=== PATIENT | female | born 1975 | race Caucasian/White ===

== ENCOUNTER 2023-02-17 14:30 | Emergency (ER) | payer MEDICARE, SELFPAY ==
[2023-02-17 14:33] VITALS: BP 159/87; PULSE 87; RESP 18; TEMP 36.8; O2SAT 97; BMI 31.1
--- NOTE | 2023-02-17 14:39 | ED.NAVMDI1 ---
HPI - Nausea/Vomiting/Diarrhea General Chief complaint: Nausea/Vomiting/Diarrhea Stated complaint: VOMITING Time Seen by Provider: 02/17/23 14:38 Source: patient Mode of arrival: walk-in Limitations: no limitations History of Present Illness HPI Narrative: patient here with complaint of abdominal pain nausea with some vomiting and diarrhea over the last ten days. She saw her primary care doctor and he ordered a gallbladder ultrasound on her this Thursday. she has not had any blood in her stool. She had some dry heaves and retching this morning. She had an old history of peptic ulcer disease but that felt different because it was a burning sensation at this time the pain feels like a just a dull aching. She does not have any pain radiating into her back. She has no urinary symptomatology at all. She is not running a fever. No history of hepatitis or pancreatitis. She does not use marijuana products. She said the shot of Phenergan that was given to her by her primary care doctor yesterday was very helpful. But now the nausea is back. She has had several colonoscopies and is known to have polyps but she says her too small to be removed and had no other abnormalities on her colonoscopy in the past. Related Data Home Medications Medication Instructions Recorded Confirmed brexpiprazole 2 mg tablet (Rexulti) 2 mg PO DAILY 02/17/23 02/17/23 budesonide 1 mg/2 mL suspension 1 mg inhalation Q12H 02/17/23 02/17/23 for nebulization zqdtxqrpuy-lzritiakbvipc-xyrkkkok 1 tab PO Q6H PRN pain 02/17/23 02/17/23 50 mg-325 mg-40 mg tablet dapagliflozin 5 mg tablet (Farxiga) 5 mg PO DAILY 02/17/23 02/17/23 dexlansoprazole 60 mg 60 mg PO BID 02/17/23 02/17/23 capsule,biphase delayed release duloxetine 30 mg capsule,delayed 30 mg PO DAILY 02/17/23 02/17/23 release glycopyrrolate 1 mg tablet 1 mg PO Q8H PRN secretions 02/17/23 02/17/23 hydroxychloroquine 200 mg tablet 200 mg PO BID 02/17/23 02/17/23 ibuprofen 800 mg tablet 800 mg PO Q6H PRN fever or pain 02/17/23 02/17/23 ipratropium 0.5 mg-albuterol 3 mg 3 ml inhalation Q6H PRN shortness 02/17/23 02/17/23 (2.5 mg base)/3 mL nebulization of breath soln lamotrigine 200 mg tablet 200 mg PO Q8H 02/17/23 02/17/23 lisinopril 10 mg tablet 10 mg PO DAILY 02/17/23 02/17/23 lubiprostone 24 mcg capsule 24 mcg PO BID 02/17/23 02/17/23 metformin 500 mg tablet 1,000 mg PO BID 02/17/23 02/17/23 minocycline 100 mg capsule 100 mg PO DAILY 02/17/23 02/17/23 ondansetron HCl 4 mg tablet 4 mg PO Q8H PRN nausea and vomiting 02/17/23 02/17/23 pioglitazone 15 mg tablet 15 mg PO DAILY 02/17/23 02/17/23 simvastatin 20 mg tablet 20 mg PO DAILY 02/17/23 02/17/23 vilazodone 40 mg tablet (Viibryd) 40 mg PO DAILY 02/17/23 02/17/23 Allergies Allergy/AdvReac Type Severity Reaction Status Date / Time No Known Drug Allergies Allergy Verified 02/17/23 14:36 Exam Constitutional Vital Signs - 24 hr 02/17/23 14:33 02/17/23 16:14 Temperature 98.2 F Pulse Rate 84 Pulse Rate [Monitor] 87 Respiratory Rate 18 16 Blood Pressure 113/87 H Blood Pressure [Right Arm] 159/87 H Pulse Oximetry 97 98 Course Vital Signs Vital signs: Vital Signs Temperature 98.2 F 02/17/23 14:33 Pulse Rate 87 02/17/23 14:33 Respiratory Rate 18 02/17/23 14:33 Blood Pressure 159/87 H 02/17/23 14:33 Pulse Oximetry 97 02/17/23 14:33 Temperature 98.2 F 02/17/23 14:33 Pulse Rate 84 02/17/23 16:59 Respiratory Rate 20 02/17/23 16:59 Blood Pressure 118/61 02/17/23 16:59 Pulse Oximetry 97 02/17/23 16:59 Oxygen Delivery Method Room Air 02/17/23 16:59 MDM - Nausea/Vomiting/Diarrhea MDM Narrative Medical decision making narrative: This document has been composed with a new electronic medical record and [employer] voice recognition system. This document may not fully inaccurately reflect the entirety of the patient encounter. patient presents with nearly 10 days of bloating upper abdominal discomfort and nausea. Her workup here did not show any acute findings with a normal white blood cell count amylase and CT the abdomen is benign. She is scheduled to have an ultrasound which may give further understanding of her gallbladder and biliary tree. I would like her to be on clear fluid diet and avoid all fatty foods until that time. She states the Phenergan made her feel better yesterday so we will give her some today. The CT scan did not show any other acute abdominal pathology. Lab Data Labs: Lab Results 02/17/23 Range/Units 14:40 WBC 8.6 (4.0-11.0) 10^3/uL RBC 4.16 L (4.20-5.40) 10^6/uL Hgb 11.0 L (12.0-16.0) g/dL Hct 34.8 L (36.0-48.0) % MCV 83.7 (81.0-99.0) fL MCH 26.4 L (26.7-34.0) pg MCHC 31.6 (29.9-35.2) g/dL RDW 15.7 H (11.0-15.0) % Plt Count 417 (150-450) 10^3/uL MPV 10.2 (9.5-13.5) fL Neut % (Auto) 62.5 (43.0-75.0) % Lymph % (Auto) 24.4 (20.5-60.0) % [place] % (Auto) 11.5 (1.7-12.0) % Eos % (Auto) 0.6 L (0.9-7.0) % Baso % (Auto) 0.7 (0.2-2.0) % Neut # (Auto) 5.4 (1.4-6.5) 10^3/uL Lymph # (Auto) 2.1 (1.2-3.8) 10^3/uL [place] # (Auto) 1.0 H (0.3-0.8) 10^3/uL Eos # (Auto) 0.1 (0.0-0.7) 10^3/uL Baso # (Auto) 0.1 (0.0-0.1) 10^3/uL Abs Immat Gran (auto) 0.03 (0.00-0.03) 10^3/uL Imm/Tot Granulo (auto) 0.3 (0.0-0.5) % Sodium 139 (136-145) mmol/L Potassium 3.8 (3.5-5.1) mmol/L Chloride 104 (98-107) mmol/L Carbon Dioxide 22.6 (21.0-32.0) mmol/L Anion Gap 16.2 BUN 9.0 (7.0-18.0) mg/dL Creatinine 0.95 (0.55-1.02) mg/dL Est GFR ( Amer) >60 (>=60) Est GFR (Non-Af Amer) >60 (>=60) BUN/Creatinine Ratio 9.5 Glucose 97 (74-106) mg/dL Lactate 1.5 (0.4-2.0) mmol/L Calcium 8.7 (8.5-10.1) mg/dL Total Bilirubin 0.2 (0.2-1.0) mg/dL AST 18 (15-37) U/L ALT 27 (14-59) U/L Alkaline Phosphatase 58 (46-116) U/L Total Protein 6.9 (6.4-8.2) g/dL Albumin 3.6 (3.4-5.0) g/dL Globulin 3.3 g/dL Albumin/Globulin Ratio 1.1 Lipase 118.0 (73.0-393.0) U/L Discharge Plan Discharge Chief Complaint: Nausea/Vomiting/Diarrhea Clinical Impression: Gastroenteritis Patient Disposition: Home, Self-Care Time of Disposition Decision: 16:38 Mode of Transportation: Private Vehicle Prescriptions / Home Meds: No Action Rexulti 2 mg tablet 2 mg PO DAILY budesonide 1 mg/2 mL suspension for nebulization 1 mg inhalation Q12H kttfxtlgco-eddchsvkjzyrt-nuwv 50-325-40 mg tablet 1 tab PO Q6H PRN (Reason: pain) Farxiga 5 mg tablet 5 mg PO DAILY dexlansoprazole 60 mg capsule,biphase delayed releas 60 mg PO BID duloxetine 30 mg capsule,delayed release(DR/EC) 30 mg PO DAILY glycopyrrolate 1 mg tablet 1 mg PO Q8H PRN (Reason: secretions) hydroxychloroquine 200 mg tablet 200 mg PO BID ibuprofen 800 mg tablet 800 mg PO Q6H PRN (Reason: fever or pain) ipratropium-albuterol 0.5 mg-3 mg(2.5 mg base)/3 mL solution for nebulization 3 ml INHALATION Q6H PRN (Reason: shortness of breath) lamotrigine 200 mg tablet 200 mg PO Q8H lisinopril 10 mg tablet 10 mg PO DAILY lubiprostone 24 mcg capsule 24 mcg PO BID metformin 500 mg tablet 1,000 mg PO BID minocycline 100 mg capsule 100 mg PO DAILY ondansetron HCl 4 mg tablet 4 mg PO Q8H PRN (Reason: nausea and vomiting) pioglitazone 15 mg tablet 15 mg PO DAILY simvastatin 20 mg tablet 20 mg PO DAILY vilazodone [Viibryd] 40 mg tablet 40 mg PO DAILY Instructions: Acute Nausea and Vomiting (DC) Stand Alone Forms: Portal Instructions Referrals: Jesus Camacho MD [Primary Care Provider] - 1 week Discharge Date/Time: 02/17/23 17:00
--- NOTE | 2023-02-17 14:48 | CT_ITS ---
The [address] [address] Patient Name: DEON PICHARDO MRN: [id number] date: 1975 Sex: F Assigned Patient Location: ER Current Patient Location: ER Accession/Order Number: [id number] Exam Date: 02/17/2023 15:50 Report Date: 02/17/2023 16:23 At the request of: KEZIA BRUMFIELD Procedure: CT abdomen pelvis w con EXAM: CT abdomen pelvis w con HISTORY: pain COMPARISON: None. TECHNIQUE: Axial CT imaging was performed through the abdomen and pelvis with intravenous contrast. Multiplanar reformats were performed. Dose reduction techniques were achieved by using automated exposure control and/or adjustment of mA and/or kV according to patient size and/or use of iterative reconstruction technique. FINDINGS: Lung bases: Lung bases are clear. No pleural effusion. GI upper: Unremarkable. Liver: Normal size and contour. Gallbladder: No significant abnormality. No cholelithiasis. Biliary system: No intra or extrahepatic biliary ductal dilatation. Spleen: Normal size. Pancreas: Unremarkable. Adrenal glands: Normal adrenal glands. Kidneys/ureters: Normal contours. No hydronephrosis. No nephrolithiasis or ureterolithiasis. Vessels: No aneurysm. Lymph Nodes: No lymphadenopathy. Small bowel: No wall thickening or dilatation. Colon: No wall thickening or dilatation. Evidence of constipation. Appendix: Appendectomy. Peritoneal cavity: No free fluid or pneumoperitoneum. Lower : The uterus and urinary bladder are unremarkable. There is a 2 cm prominent follicle or corpus luteal cyst in the right ovary. Bones: No acute bony abnormality. Disc desiccation at L5-S1 level. Soft tissues: No acute finding. Additional findings: None. IMPRESSION: Unremarkable CT of the abdomen and pelvis. No acute abnormality. Electronically authenticated by: AMERICA MORGAN Date: 02/17/2023 16:23
[2023-02-17] MEDS: 0.9 % SODIUM CHLORIDE 1,000 ML 100 ML IV (14:56)
[2023-02-17 14:58] LABS: Basophils Absolute Auto 0.1 10^3/uL (0.0-0.1); Basophils Percent Auto 0.7 % (0.2-2.0); Eosinophils Absolute Auto 0.1 10^3/uL (0.0-0.7); Eosinophils Percent Auto 0.6 % (0.9-7.0); Hematocrit 34.8 % (36.0-48.0); Immature Granulocytes Abs Auto 0.03 10^3/uL (0.00-0.03); Immature Granulocytes Pct Auto 0.3 % (0.0-0.5); Lymphocytes Absolute Auto 2.1 10^3/uL (1.2-3.8); Lymphocytes Percent Auto 24.4 % (20.5-60.0); Mean Corpuscular HGB Conc 31.6 g/dL (29.9-35.2); Mean Corpuscular Hemoglobin 26.4 pg (26.7-34.0); Mean Corpuscular Volume 83.7 fL (81.0-99.0); Mean Platelet Volume 10.2 fL (9.5-13.5); Monocytes Percent Auto 11.5 % (1.7-12.0); Neutrophils Absolute Auto 5.4 10^3/uL (1.4-6.5); Neutrophils Percent Auto 62.5 % (43.0-75.0); Platelet Count 417 10^3/uL (150-450); Red Blood Count 4.16 10^6/uL (4.20-5.40); Red Cell Distribution Width 15.7 % (11.0-15.0); White Blood Count 8.6 10^3/uL (4.0-11.0)
[2023-02-17 15:13] LABS: Alanine Aminotransferase 27 U/L (14-59); Albumin Globulin Ratio 1.1; Albumin Level 3.6 g/dL (3.4-5.0); Alkaline Phosphatase 58 U/L (46-116); Anion Gap 16.2; Aspartate Amino Transferase 18 U/L (15-37); BUN Creatinine Ratio 9.5; Bilirubin Total 0.2 mg/dL (0.2-1.0); Calcium 8.7 mg/dL (8.5-10.1); Carbon Dioxide 22.6 mmol/L (21.0-32.0); Chloride 104 mmol/L (98-107); Estimated GFR (African America >60 (>=60); Estimated GFR (Non-African Ame >60 (>=60); Globulin 3.3 g/dL; Glucose 97 mg/dL (74-106); Potassium 3.8 mmol/L (3.5-5.1); Sodium 139 mmol/L (136-145); Total Protein 6.9 g/dL (6.4-8.2)
[2023-02-17 15:15] LABS: Lactate/Lactic Acid 1.5 mmol/L (0.4-2.0)
[2023-02-17] MEDS: ONDANSETRON PF 4 MG/2 ML VIAL IV (16:12)
[2023-02-17 16:14] VITALS: BP 113/87; PULSE 84; RESP 16; O2SAT 98
[2023-02-17] MEDS: PROMETHAZINE HCL 25 MG/ML VIAL IM (16:53)
[2023-02-17 16:59] VITALS: BP 118/61; PULSE 84; RESP 20; O2SAT 97
== END 2023-02-17 17:00 | disposition home or self-care (01) ==
PROVIDERS: Emergency Provider Emergency Medicine Emergency Medical Services; PCP Family Medicine
DX: K52.9 Noninfective gastroenteritis and colitis, unspecified (principal); Z87.11 Personal history of peptic ulcer disease; Z79.899 Other long term (current) drug therapy; Z79.84 Long term (current) use of oral hypoglycemic drugs
CPT/HCPCS: 36415; 74177; 80053; 83605; 83690; 85025; 96372; 96374; 99284; Q9967

== ENCOUNTER 2023-02-21 07:56 | Outpatient (OUT) | payer MEDICARE, SELFPAY ==
--- NOTE | 2023-02-21 07:59 | US_ITS ---
The [address] [address] Patient Name: DOEN PICHARDO MRN: [id number] date: 1975 Sex: F Assigned Patient Location: US Current Patient Location: US Accession/Order Number: [id number] Exam Date: 02/21/2023 08:00 Report Date: 02/21/2023 08:35 At the request of: SAMMIE GONZALEZ Procedure: US right upper quadrant EXAM: US right upper quadrant HISTORY: R10.11 RIGHT UPPER QUADRANT PAIN COMPARISON: None. TECHNIQUE: Grayscale, color and Doppler ultrasound FINDINGS: The liver is normal in size, contour and echotexture with no focal mass. Hepatopedal flow in the main portal vein with velocity of 41 cm/s. The visualized pancreas is normal, the tail was not visualized The gallbladder is normal. The wall measures 2.4 mm. Negative sonographic Topete sign. The common bile measures 5.3 mm, normal. The right kidney is normal in appearance measuring 11.1 x 4.2 x 6.2 cm. No free fluid IMPRESSION: No acute abnormality Electronically authenticated by: LIAT GUEVARA Date: 02/21/2023 08:35
== END 2023-02-21 07:57 ==
LOC: US 07:56
PROVIDERS: PCP Family Medicine; Visit Provider Family Medicine
DX: R10.11 Right upper quadrant pain (principal)
CPT/HCPCS: 76705

== ENCOUNTER 2023-03-06 08:08 | Outpatient (OUT) | payer MEDICARE, SELFPAY ==
--- NOTE | 2023-03-06 08:15 | NM_ITS ---
The [address] [address] Patient Name: DEON PICHARDO MRN: [id number] date: 1975 Sex: F Assigned Patient Location: [place] Current Patient Location: [place] Accession/Order Number: [id number] Exam Date: 03/06/2023 08:15 Report Date: 03/06/2023 12:35 At the request of: SAMMIE GONZALEZ Procedure: NM hepatobiliary w pharm EXAMINATION: SC hepatobiliary w pharm HISTORY: Right upper quadrant pain COMPARISON: No relevant comparison available. TECHNIQUE: Radionuclide hepatobiliary imaging was performed after intravenous injection of 15 mCi mebrofenin IV with sequential acquisitions every 1 minute for one hour. Hepatobiliary imaging with gallbladder ejection fraction analysis was then performed with sequential imaging every 1 minute for 60 minutes following the patient drinking 8 ounces of ensure plus. FINDINGS: LIVER: Normal, prompt and uniform radiotracer uptake and clearing. BILIARY DUCTS: Normal radioisotopic biliary excretion. GALLBLADDER: Normal with no evidence of cystic duct obstruction. INTESTINE: Normal with no evidence of common biliary ductal obstruction. EJECTION FRACTION: 84 % within 60 minutes. (Normal EF > 38%). OTHER: Negative. IMPRESSION: Normal hepatobiliary scan and gallbladder ejection fraction Electronically authenticated by: LIAT GUEVARA Date: 03/06/2023 12:35
== END 2023-03-06 08:09 | disposition home or self-care (01) ==
PROVIDERS: PCP Family Medicine; Visit Provider Family Medicine
DX: R10.11 Right upper quadrant pain (principal); R11.0 Nausea; R11.10 Vomiting, unspecified
CPT/HCPCS: 78227; A9537

== ENCOUNTER 2023-04-27 13:08 | Outpatient (RCR) | payer MEDICARE, SELFPAY ==
[2023-04-27 13:10] VITALS: BP 119/77; PULSE 86; RESP 16; TEMP 36.7
[2023-05-04 13:15] VITALS: BP 132/78; PULSE 86; RESP 16; TEMP 36.9; O2SAT 97
== END 2023-05-14 23:59 | disposition home or self-care (01) ==
LOC: INF 13:08
PROVIDERS: PCP Family Medicine; Visit Provider Family Medicine
DX: D50.9 Iron deficiency anemia, unspecified (principal)
CPT/HCPCS: 96365; 96366; J1439

== ENCOUNTER 2024-02-19 11:22 | Outpatient (OUT) | payer MEDICARE, SELFPAY ==
--- NOTE | 2024-02-19 | XR_ITS ---
The [address] [address] Patient Name: DEON PICHARDO MRN: [id number] date: 1975 Sex: F Assigned Patient Location: Current Patient Location: Accession/Order Number: [id number] Exam Date: 02/19/2024 11:30 Report Date: 02/22/2024 06:07 At the request of: DIEGO RASHID Procedure: XR lumbar spine min 4V EXAMINATION: XR lumbar spine min 4V HISTORY: LUMBAR PAIN COMPARISON: MRI lumbar spine 02/01/2024 FINDINGS: BONES: Slight right convex curvature lumbar spine. No fracture, spondylolisthesis, bone lesion. No change in alignment during flexion and extension. Suspect mild degenerative facet arthropathy L3-L4 through L5-S1. DISC SPACES: Moderate narrowing L5-S1. PARASPINOUS: Negative. No paraspinous abnormality is seen. OTHER: Negative. XR/XR lumbar spine min 4V IMPRESSION: 1. L5-S1 moderate degenerative disc disease. Electronically authenticated by: SUNG YUN Date: 02/22/2024 06:07
--- NOTE | 2024-02-19 | XR_ITS ---
[address] [address] Patient Name: DEON PICHARDO MRN: [id number] date: 1975 Sex: F Assigned Patient Location: Current Patient Location: Accession/Order Number: [id number] Exam Date: 02/19/2024 11:30 Report Date: 02/22/2024 06:06 At the request of: DIEGO RASHID Procedure: XR cervical spine w flex/ext EXAMINATION: XR cervical spine w flex/ext HISTORY: CERVICAL SPINE PAIN COMPARISON: MRI cervical spine 02/01/2024 FINDINGS: BONES: Slight reversal of normal lordotic curvature. No fracture or spondylolisthesis. No significant facet arthropathy. DISC SPACES: Moderate narrowing C5-C6, and suspected at C6-C7 which is partially obscured by shoulder structures. PARASPINOUS: Negative. No paraspinous abnormality is seen. OTHER: Negative. XR/XR cervical spine w flex/ext IMPRESSION: 1. Moderate degenerative disc disease of lower cervical spine. 2. Reversal of normal lordotic curvature; positioning versus muscle spasm. Electronically authenticated by: SUNG YUN Date: 02/22/2024 06:06
== END 2024-02-19 11:23 | disposition home or self-care (01) ==
LOC: EC 11:22
PROVIDERS: PCP Family Medicine; Visit Provider Orthopaedic Surgery Orthopaedic Surgery of the Spine
DX: M54.50 Low back pain, unspecified (principal); M54.2 Cervicalgia; M51.36 Other intervertebral disc degeneration, lumbar region
CPT/HCPCS: 72052; 72110

== ENCOUNTER 2024-03-07 13:36 | Outpatient (OUT) | payer MEDICARE, MEDICAID, SELFPAY ==
--- NOTE | 2024-03-07 14:52 | P.CN_ITS ---
Consult Note: HPI Data of Consult Patient: new to practice Consult date: 03/07/24 Requesting Physician: Ridge Hollingsworth MD Primary Care Provider: Jesus Camacho MD Consult Narrative Reason for consult: low back, bilateral lower extremity, neck, bilateral upper extremity pain Narrative: 48yof who presents for evaluation. longstanding neck and bilateral arm, low back and lower extremity pain. recently evaluated by back surgeon, who recommended injection therapy prior to surgical intervention. imaging reviewed, which is significant for moderate to severe stenosis at l5-s1, as well as moderate to severe foraminal narrowing at multiple cervical levels, worst at c6-7. she has engaged in a series of provider directed home exercises >6 weeks without lasting benefit. uses ibuprofen as needed. denies adverse med side effects. cc:: CC: Ridge Hollingsworth MD Review of Systems ROS Status of ROS 10 or more systems reviewed and unremark able except as noted in history and below Meds Home Medications and Allergies Home Medications ?Medication ?Instructions ?Recorded ?Confirmed ?Type brexpiprazole 2 mg tablet (Rexulti) 2 mg PO DAILY 02/17/23 02/17/23 History budesonide 1 mg/2 mL suspension 1 mg inhalation Q12H 02/17/23 02/17/23 History for nebulization bvmdjzqevj-wvumkutfqgsij-biplfuzk 1 tab PO Q6H PRN pain 02/17/23 02/17/23 History 50 mg-325 mg-40 mg tablet dapagliflozin propanediol 5 mg 5 mg PO DAILY 02/17/23 02/17/23 History tablet (Farxiga) dexlansoprazole 60 mg 60 mg PO BID 02/17/23 02/17/23 History capsule,biphase delayed release duloxetine 30 mg capsule,delayed 30 mg PO DAILY 02/17/23 02/17/23 History release glycopyrrolate 1 mg tablet 1 mg PO Q8H PRN secretions 02/17/23 02/17/23 History hydroxychloroquine 200 mg tablet 200 mg PO BID 02/17/23 02/17/23 History ibuprofen 800 mg tablet 800 mg PO Q6H PRN fever or pain 02/17/23 02/17/23 History ipratropium 0.5 mg-albuterol 3 mg 3 ml inhalation Q6H PRN shortness 02/17/23 02/17/23 History (2.5 mg base)/3 mL nebulization of breath soln lamotrigine 200 mg tablet 200 mg PO Q8H 02/17/23 02/17/23 History lisinopril 10 mg tablet 10 mg PO DAILY 02/17/23 02/17/23 History lubiprostone 24 mcg capsule 24 mcg PO BID 02/17/23 02/17/23 History metformin 500 mg tablet 1,000 mg PO BID 02/17/23 02/17/23 History minocycline 100 mg capsule 100 mg PO DAILY 02/17/23 02/17/23 History ondansetron HCl 4 mg tablet 4 mg PO Q8H PRN nausea and vomiting 02/17/23 02/17/23 History pioglitazone 15 mg tablet 15 mg PO DAILY 02/17/23 02/17/23 History simvastatin 20 mg tablet 20 mg PO DAILY 02/17/23 02/17/23 History vilazodone 40 mg tablet (Viibryd) 40 mg PO DAILY 02/17/23 02/17/23 History Allergies Allergy/AdvReac Type Severity Reaction Status Date / Time No Known Drug Allergies Allergy Verified 02/17/23 14:36 Exam Narrative Exam Narrative: Psych-alert and oriented x 3.? Attentive and appropriate, constitutionally normal, displays normal mood and affect per situation.? There are no obvious deficits in memory, reasoning, or intellect.? Skin-no obvious rashes, bruising, or erythema noted to the patient's area of pain.? Extremities-upper extremities are warm with minimal edema and palpable pulses. Cervical- tenderness to palpation noted in the cervical spine and paraspinal musculature.? Pain is elicited with flexion, extension, and lateral rotation of the cervical spine.? Range of motion is diminished due to pain. Facet loading maneuvers are negative.? Strength-unremarkable and within normal limits with the exception to the bilateral biceps. Sensory-no notable sensory deficits in the bilateral upper extremities to touch or pinprick with the exception to decreased sensation to the bilateral C5, 6, 7 dermatomal distribution. Lumbar-tenderness to palpation noted in the lumbar spine and paraspinal musculature. Pain is elicited with flexion, extension, and lateral rotation of the lumbar spine. Range of motion is diminished with these motions. Facet loading maneuvers are positive. Strength-noted to be unremarkable with the exception of decreased strength rated at 4 out of 5 in bilateral quadriceps femoris. Sensory-no notable sensory deficits in the bilateral lower extremities to touch or pinprick in all dermatomal distributions with the exception to decreased sensation to the bilateral L4, 5 dermatomal distribution Coordination remains intact.? Gait remains non-antalgic. Assessment and Plan Assessment and Plan (1) Cervical stenosis of spinal canal: (2) Lumbar stenosis with neurogenic claudication: (3) Lumbar spondylosis: Plan 48yof who presents for evaluation. failed conservative measures,as noted. imaging reviewed, as noted. given symptoms and imaging, prudent to attempt bilateral l5-s1 tfesi under fluoroscopic guidance. may also benefit from bilateral c6-7 tfesi under fluoroscopic guidance. she is in agreement. meds reviewed, no changes. follow up after procedure.
== END 2024-03-07 13:37 | disposition home or self-care (01) ==
LOC: PM 13:37
PROVIDERS: PCP Family Medicine; Visit Provider Anesthesiology
DX: M47.816 Spondylosis without myelopathy or radiculopathy, lumbar region (principal); M48.062 Spinal stenosis, lumbar region with neurogenic claudication; M48.02 Spinal stenosis, cervical region
CPT/HCPCS: G0463

== ENCOUNTER 2024-04-25 09:51 | Day surgery (SDC) | payer MEDICARE, MEDICAID, SELFPAY ==
[2024-04-25 10:15] VITALS: BP 123/70; PULSE 90; TEMP 36.8; O2SAT 100
[2024-04-25 10:24] LABS: Glucometer 89 mg/dL (74-106)
[2024-04-25] MEDS: BUPIVACAINE HCL 0.25% PF 25 MG/10 ML VIAL INJ (10:42)
[2024-04-25] MEDS: IOHEXOL 240 MG/ML - 10 ML VIAL INJ (10:43)
[2024-04-25] MEDS: LIDOCAINE HCL 2% 400 MG/20 ML MDV 5 ML INJ (10:43)
[2024-04-25] MEDS: DEXAMETHASONE SOD PHOS 10 MG/ML VIAL INJ (10:43)
[2024-04-25 10:44] VITALS: BP 117/66; BP 121/59; PULSE 87; PULSE 90; O2SAT 96; O2SAT 99
--- NOTE | 2024-04-25 10:45 | W.PM.PROCNOT ---
Date of procedure: 04/25/24 Pre-op diagnosis: Pain due to cervical radiculopathy Post-op diagnosis: same as pre-op Procedure: Procedure: Bilateral C6-7 transforaminal epidural steroid injection Medications: Bupivacaine 0.25% 1cc, lidocaine 2% 1cc, dexamethasone 10mg The patient was seen and examined in the preoperative holding area.? Informed consent was obtained and placed on the chart.? Patient was brought to the medical procedure unit and placed in the prone position where a timeout was completed verifying the correct patient, procedure site, position, and planned special equipment using sterile aseptic technique.? Under direct fluoroscopic visualization a 25-gauge Quincke tipped spinal needle was advanced at level left C6-7 to the designated neural foramen where contrast dye was injected to show adequate spread.? There was no evidence of vascular or adverse uptake.? Epidural spread was appreciated.? The above-mentioned injectate was then placed in a 1.5 mL aliquot preceded by negative aspiration.? The needle was removed. The same procedure, at the same level, was completed on the opposite side. ? Patient was taken to the postprocedural recovery area and monitored for an appropriate length of time before found suitable for discharge in the accompaniment of a responsible adult. Anesthesia: Local Surgeon: Ridge Hollingsworth Pathology: none sent Condition: stable Disposition: no change
== END 2024-04-25 10:49 | disposition home or self-care (01) ==
LOC: SURGOUT 09:53
PROVIDERS: PCP Family Medicine; Visit Provider Anesthesiology
DX: M54.12 Radiculopathy, cervical region (principal); Z79.84 Long term (current) use of oral hypoglycemic drugs
CPT/HCPCS: 36415; 64479; 82948; J0665; J1100; Q9966

== ENCOUNTER 2024-05-09 07:50 | Day surgery (SDC) | payer MEDICARE, MEDICAID, SELFPAY ==
[2024-05-09 08:29] LABS: Glucometer 106 mg/dL (74-106)
[2024-05-09 08:36] VITALS: BP 120/71; PULSE 96; TEMP 36.5; O2SAT 99
[2024-05-09] MEDS: IOHEXOL 240 MG/ML - 10 ML VIAL INJ (08:56)
[2024-05-09] MEDS: 0.9 % SODIUM CHLORIDE 10 ML SYRINGE - SALINE FLUSH INJ (08:56)
[2024-05-09] MEDS: BUPIVACAINE HCL 0.25% PF 25 MG/10 ML VIAL INJ (08:56)
[2024-05-09] MEDS: TRIAMCINOLONE ACETONIDE 40 MG/ML VIAL 80 MG INJ (08:57)
[2024-05-09] MEDS: LIDOCAINE HCL 2% 400 MG/20 ML MDV 5 ML INJ (08:57)
[2024-05-09 08:58] VITALS: BP 106/87; BP 116/87; PULSE 70; PULSE 95; O2SAT 93; O2SAT 98
--- NOTE | 2024-05-09 08:59 | W.PM.PROCNOT ---
Date of procedure: 05/09/24 Pre-op diagnosis: Pain due to lumbar stenosis with neurogenic claudication Post-op diagnosis: same as pre-op Procedure: Procedure: Bilateral L5-S1 transforaminal epidural steroid injection Medications: Bupivacaine 0.25% 2cc, lidocaine 2% 1cc, kenalog 80mg The patient was seen and examined in the preoperative holding area.? Informed consent was obtained and placed on the chart.? Patient was brought to the medical procedure unit and placed in the prone position where a timeout was completed verifying the correct patient, procedure site, position, and planned special equipment using sterile aseptic technique.? Under direct fluoroscopic visualization a 25-gauge Quincke tipped spinal needle was advanced at level left L5-S1 to the designated neural foramen where contrast dye was injected to show adequate spread.? There was no evidence of vascular or adverse uptake.? Epidural spread was appreciated.? The above-mentioned injectate was then placed in a 1.5 mL aliquot preceded by negative aspiration.? The needle was removed. The same procedure, at the same level, was completed on the opposite side. ? Patient was taken to the postprocedural recovery area and monitored for an appropriate length of time before found suitable for discharge in the accompaniment of a responsible adult. Anesthesia: Local Surgeon: Ridge Hollingsworth Pathology: none sent Condition: stable Disposition: no change
== END 2024-05-09 09:04 | disposition home or self-care (01) ==
PROVIDERS: PCP Family Medicine; Visit Provider Anesthesiology
DX: M48.062 Spinal stenosis, lumbar region with neurogenic claudication (principal); Z79.84 Long term (current) use of oral hypoglycemic drugs
CPT/HCPCS: 36415; 64483; 82948; J0665; J3301; Q9966

== ENCOUNTER 2024-05-26 13:39 | Outpatient (OUT) | payer MEDICARE, MEDICAID, SELFPAY ==
--- NOTE | 2024-05-26 14:06 | P.CN_ITS ---
Consult Note: HPI Data of Consult Patient: known to practice within the last 3 years Consult date: 03/07/24 Requesting Physician: Chantal Ocampo NP Primary Care Provider: Jesus Camacho MD Consult Narrative Reason for consult: low back, bilateral lower extremity, neck, bilateral upper extremity pain Narrative: 48yof who presents for evaluation. longstanding neck and bilateral arm, low back and lower extremity pain. recently evaluated by back surgeon, who recommended injection therapy prior to surgical intervention. imaging reviewed, which is significant for moderate to severe stenosis at l5-s1, as well as moderate to severe foraminal narrowing at multiple cervical levels, worst at c6-7. she has engaged in a series of provider directed home exercises >6 weeks without lasting benefit. uses ibuprofen as needed. denies adverse med side effects. recently underwent bilateral C6-7 TFESI and bilateral L5-S1 TFESI with >80% improvement from injections. Patient rating pain 0/10 currently, tight. 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 - 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], unspecified hand (ICD-10) History of smoking ?Z87.891 - Personal history of nicotine dependence (ICD-10) Carpal tunnel syndrome ?G56.00 - Carpal tunnel syndrome, unspecified upper limb (ICD-10) Obesity ?E66.9 - Obesity, unspecified (ICD-10) Anemia ?D64.9 - Anemia, unspecified (ICD-10) Anxiety ?F41.9 - Anxiety disorder, unspecified (ICD-10) Acid reflux ?K21.9 - Gastro-esophageal reflux disease without esophagitis (ICD-10) Diabetes 1.5, managed as type 2 ?E13.9 - Other specified diabetes mellitus without complications (ICD-10) Hypertension ?I10 - Essential (primary) hypertension (ICD-10) High cholesterol ?E78.00 - Pure hypercholesterolemia, unspecified (ICD-10) Surgical History H/O resection of rib ?Z98.890 - Other specified postprocedural states (ICD-10) History of surgery on arm ?Z98.890 - Other specified postprocedural states (ICD-10) H/O breast biopsy ?Z98.890 - Other specified postprocedural states (ICD-10) History of carpal tunnel surgery ?Z98.890 - Other specified postprocedural states (ICD-10) History of appendectomy ?Z90.49 - Acquired absence of other specified parts of digestive tract (ICD- 10) Meds Home Medications and Allergies Home Medications ?Medication ?Instructions ?Recorded ?Confirmed ?Type brexpiprazole 2 mg tablet (Rexulti) 2 mg PO DAILY 02/17/23 05/09/24 History budesonide 1 mg/2 mL suspension 1 mg inhalation Q12H 02/17/23 05/09/24 History for nebulization dapagliflozin propanediol 5 mg 5 mg PO DAILY 02/17/23 05/09/24 History tablet (Farxiga) dexlansoprazole 60 mg 60 mg PO BID 02/17/23 05/09/24 History capsule,biphase delayed release duloxetine 30 mg capsule,delayed 30 mg PO DAILY 02/17/23 05/09/24 History release glycopyrrolate 1 mg tablet 1 mg PO Q8H PRN secretions 02/17/23 05/09/24 History hydroxychloroquine 200 mg tablet 200 mg PO BID 02/17/23 05/09/24 History ibuprofen 800 mg tablet 800 mg PO Q6H PRN fever or pain 02/17/23 05/09/24 History ipratropium 0.5 mg-albuterol 3 mg 3 ml inhalation Q6H PRN shortness 02/17/23 05/09/24 History (2.5 mg base)/3 mL nebulization of breath soln lamotrigine 200 mg tablet 200 mg PO Q8H 02/17/23 05/09/24 History lisinopril 10 mg tablet 10 mg PO DAILY 02/17/23 05/09/24 History lubiprostone 24 mcg capsule 24 mcg PO BID 02/17/23 05/09/24 History metformin 500 mg tablet 1,000 mg PO BID 02/17/23 05/09/24 History ondansetron HCl 4 mg tablet 4 mg PO Q8H PRN nausea and vomiting 02/17/23 05/09/24 History pioglitazone 15 mg tablet 15 mg PO DAILY 02/17/23 05/09/24 History simvastatin 20 mg tablet 20 mg PO DAILY 02/17/23 05/09/24 History vilazodone 40 mg tablet (Viibryd) 40 mg PO DAILY 02/17/23 05/09/24 History budesonide 1 mg/2 mL suspension 1 mg inhalation DAILY 03/08/24 05/09/24 History for nebulization (Pulmicort) dexlansoprazole 60 mg 60 mg PO DAILY 03/08/24 05/09/24 History capsule,biphase delayed release (Dexilant) etodolac 400 mg tablet (Lodine) 400 mg PO Q12H PRN pain 03/08/24 05/09/24 History nortriptyline 25 mg capsule 25 mg PO DAILY 03/08/24 05/09/24 History Allergies Allergy/AdvReac Type Severity Reaction Status Date / Time No Known Drug Allergies Allergy Verified 05/09/24 08:26 Exam Constitutional Documenting provider has reviewed patient's vital signs: yes Common normals: no apparent distress, oriented x3, healthy appearing, alert and well nourished General appearance: cooperative [facility] Common normals: normocephalic, hearing grossly normal bilaterally and moist oral mucous membranes Head and scalp: normocephalic Eye Common normals: PERRL Pupil: PERRL Neck & C-Spine Common normals: full ROM General: normal visual inspection Cervical spine: pain with cervical ROM and cervical spine tenderness; no paracervical muscle tenderness, no paracervical muscle spasm and no trapezius muscle tenderness Other: facet loading to C2-5 facets, left greater than right no tenderness over bilateral occipital nerves negative spurlings strength 5/5 in BUE Chest Common normals: inspection of chest normal Respiratory Common normals: normal respiratory effort, no retractions and no use of accessory muscles Back & Pelvis Lumbar spine/lower back: normal to inspection, lumbar ROM normal and straight leg raise negative bilaterally Sacroiliac joints: SI joints normal Other: sensation intact BLE strength 5/5 in BLE Extremity Common normals: normal to inspection and full ROM Neuro Common normals: oriented x3, CN's II-XII intact bilaterally, moves all extremities, no focal motor deficits, no sensory deficits noted, deep tendon reflexes 2+ bilaterally and gait normal Sensorium/orientation: alert Motor exam: strength 5/5 throughout and no movement abnormalities noted Psych Common normals: mental status grossly normal, thought process normal, cooperative, affect normal, speech normal and activity/motor behavior normal Speech: normal speech Thought process: normal thought process Results Additional Findings Additional findings: If on a controlled substance or opioids, I have checked an [place] report on this patient and there are no aberrancies noted in the prescribing history.??If on a controlled substance or opioid a drug screen was completed and reviewed within the last year, and if there has not been a drug screen completed we ordered one today to monitor higher risk, state monitored pain medication use. As part of providing excellent, safe, comprehensive care, the following was completed at our patient's visit: 1. A medication reconciliation and review to ensure accurate knowledge of current/active medications, including asking our patients to inform us about any [id number] medications or herbal remedies/nutritional supplements/alternative remedies. 2. A review to specifically ensure our patients have had annual screening for screening for depression, screening for tobacco use, and screening for unhealthy alcohol use. For concerning screenings had a discussion with the patient, provided patient education, and recommended follow-up with primary care provider when appropriate. If patient noted with a risk of falling, they received education on strength, gait, and balance training to prevent future risk of falling. Assessment and Plan Assessment and Plan (1) Cervical spondylosis: (2) Lumbar spondylosis: (3) Lumbar stenosis with neurogenic claudication: Assessment and Plan: 90% improvement ongoing from bilateral L5-S1 TFESI (4) Cervical stenosis of spinal canal: Assessment and Plan: 70-75% improvement ongoing from bilateral C6-7 TFESI Plan discussed bilateral C4/5 C5/6 facet medial branch blocks based on dweyer diagram and pts physical exam for facet arthropathy. risks vs benefits reviewed. patient can call to schedule bilateral C4/5 C5/6 MBB x2 working towards RFA under fluoroscopy at this time f/u 3 months, sooner if needed
== END 2024-05-26 13:40 | disposition home or self-care (01) ==
LOC: PM 13:39
PROVIDERS: PCP Family Medicine; Visit Provider Nurse Practitioner
DX: M47.812 Spondylosis without myelopathy or radiculopathy, cervical region (principal); M47.816 Spondylosis without myelopathy or radiculopathy, lumbar region; M48.062 Spinal stenosis, lumbar region with neurogenic claudication; M48.02 Spinal stenosis, cervical region
CPT/HCPCS: G0463

== ENCOUNTER 2024-06-20 06:59 | Day surgery (SDC) | payer MEDICARE, MEDICAID, SELFPAY ==
--- OUTSIDE RECORDS SUMMARY | 2024-06-20 07:03 | XMS_ITS | CCD ---
Author Organization [facility] Care Team Providers Care Educational Consultant Name Role Phone PHYSICIAN, DEFAULT Unavailable Unavailable PHYSICIAN, DEFAULT Unavailable Unavailable Sammie Gonzalez MD Unavailable Beti Bowles Unavailable Elyssa Gomes Unavailable MD Sammie Gonzalez Primary Care Provider [phone] HUMAIRA Cummings Attending Provider MD Sammie Gonzalez Attending Provider MD Elyssa Gomes Attending Provider MD Sammie Gonzalez Primary Care Provider MD Sammie Gonzalez Attending Provider MD Elyssa Gomes Attending Provider MD Sammie Gonzalez Primary Care Provider MD Sammie Gonzalez Attending Provider MD Elyssa Gomes Attending Provider Sammie Gonzalez MD Unavailable DR SAMMIE GONZALEZ Admitting Unavailable DR SAMMIE GONZALEZ Primary Care Unavailable DR SAMMIE GONZALEZ Consulting Unavailable DR SAMMIE GONZALEZ Attending Unavailable SHAIKH Shauna MENDOSA Consulting Unavailable LIAT MARISCAL Consulting Unavailable DR SAMMIE GONZALEZ Admitting Unavailable DR SAMMIE GONZALEZ Primary Care Unavailable DR SAMMIE GONZALEZ Attending Unavailable Sammie Gonzalez MD Unavailable Russell Shields Unavailable MD Sammie Gonzalez Primary Care Provider [phone] MD Russell Shields Attending Provider MD Sammie Gonzalez Attending Provider Hank ([facility])MARILEE Attending Provider Sammie Gonzalez MD Unavailable Sammie Gonzalez MD Primary Care Provider Sammie Gonzalez MD Unavailable Sammie Gonzalez MD Primary Care Provider Sammie Gonzalez MD Primary Care Provider MD Sammie Gonzalez Primary Care Provider MD Sammie Gonzalez Attending Provider [phone] MD Zeinab Wood Attending Provider [phone] PINEDA, ERIK F Referring Unavailable HOY, SAMMIE M Primary Care Unavailable PINEDA, ERIK F Referring Unavailable HOY, SAMMIE M Primary Care Unavailable WANDY PHILLIPS Attending Unavailable YOLA CARABALLO Attending Unavailable MD Sammie Gonzalez Primary Care Provider MD Sammie Gonzalez Attending Provider Darrick MCGHEE, Ridge Garcia Attending Unavailable Darrick MCGHEE, Ridge Garcia Attending Unavailable MD Sammie Gonzalez Primary Care Provider MD Sammie Gonzalez Attending Provider [phone] SAMMIE GONZALEZ Primary Care Unavailable ZEINAB WOOD Attending Unavailable HOY, SAMMIE M Primary Care Unavailable RACHELE FENTON Attending Unavailable ZEINAB WOOD Attending Unavailable HOY, SAMMIE M Primary Care Unavailable LOU, MONTSE Referring Unavailable PINEDA, ERIK Attending Unavailable HOY, SAMMIE M Primary Care Unavailable OLU, MONTSE Referring Unavailable FAHAD LUONG Attending Unavailable HOY, SAMMIE M Primary Care Unavailable LOU, MONTSE Referring Unavailable LOUJOSEN Attending Unavailable HOY, SAMMIE M Primary Care Unavailable HOY, SAMMIE M Primary Care Unavailable Hoy, Sammie M Admitting Unavailable Hoy, Sammie M Primary Care Unavailable Hoy, Sammie M Attending Unavailable Eric Gonzalezten Langston Attending Unavailable Sammie Gonzalez Admitting Unavailable Sammie Gonzalez Primary Care Unavailable Zeinab Wood Admitting Unavailable Zeinab Wood Attending Unavailable Sammie Gonzalez Primary Care Unavailable Sammie Gonzalez M Admitting Unavailable Sammie Gonzalez M Primary Care Unavailable LuisSammie herbert Attending Unavailable Luispiedad Sammie M Attending Unavailable LuisSammie herbert M Admitting Unavailable LuisSammie herbert Primary Care Unavailable Medications Current Medications Medication Drug Class(es) Dates Sig (Normalized) Sig (Original) acetaminophen 300 mg / butalbital 50 mg / caffeine 40 mg oral capsule (20 sources) Barbiturate, Central Nervous System Stimulant, Methylxanthine Start: 09-17-2021 take 1 capsule by mouth every four to six hours Butalbital-Aceta minophen-Caff (Fioricet) 50-300-40 mg Capsule Active 1 CAP PO EVERY 4-6 HOURS September 17, 2021 1:00am Start: 02-18-2021 End: 06-30-2023 take 1 tablet by mouth every four hours as needed, then take 4 tablets by mouth once daily as needed acetaminophen 325 mg-caffeine 40 mg-butalbital 50 mg (FIORICET) per tablet Take 1 tablet by mouth every four hours as needed Max 4 per day 0 02/18/2021 06/30/2023 Discontinued (Course of therapy completed) End: 06-26-2023 acetaminophen 325 mg-caffein e 40 mg-butalbital 50 mg (FIORICET) per 15 mL oral liquid take 1 capsule by mo [facility] every four hours Fioricet 50-300-40 MG 1 capsule as needed Orally every 4 hrs Active Comment on above: Take 1 tablet by adrian every four hours as needed Max 4 per day acetaminophen 325 mg / HYDROcodone bitartrate 5 mg oral tablet (20 sources) Opioid Agonist Start: 2 take 1 tablet by mouth every four to six hours Hydrocodone-Acetami nophen Active 1 - 2 TAB PO EVERY 4-6 HOURS 50 7 October 24, 2021 albuterol 0.83 mg/ml inhalation solution (20 sources) beta2-Adrenergic Agonist Start: 0 take 2.5 mg by inhalation four times daily Albuterol Sulfate Active 2.5 MG INHALATION Four times daily September 11, 2020 1:00am take 1 tablet by mouth every eig ht hours Albuterol Sulfate 4 MG 1 tablet Orally Three times a day Active albuterol 0.833 mg/ml / ipratropium bromide 0.167 mg/ml inhalation solution (20 sources) Anticholinergic, beta2-Adrenergic Agonist ipratropium-alb uterol (DUONEB) 0.5 mg-3 mg(2.5 mg base)/3 mL nebu Active take 3 mL by inhalat ion every six hours as needed Ipratropium-Albuterol 0.5-2.5 (3) MG/3ML 3 ml as needed Inhalation every 6 hrs Active aspirin 325 mg oral tablet (20 sources) Platelet Aggregation Inhibitor, Nonsteroidal Anti-inflammatory Drug Start: 05-15-2021 take 325 mg by mouth twice daily Aspirin Active 325 MG PO Twice daily September 17, 2021 1:00am benzonatate 100 mg oral capsule (20 sources) Non-narcotic Antitussive Start: 10-10-2021 take 200 mg by mouth every four hours Benzonatate Active 200 MG PO Q4H October 10, 2021 1:00am benzonatate (TAYLOR SALON PERLES ORAL) Active take 1 capsule by mo uth three times daily as needed Tessalon Perles 100 MG 1 capsule as need ed Orally Three times a day Active benzonatate (TAYLOR SALON PERLES ORAL) brexpiprazole 2 mg oral tablet (20 sources) Atypical Antipsychotic Start: 10-28-2018 take 1 tablet by mouth once daily REXULTI 2 mg tablet Take 2 mg by mouth once daily. 02/16/2021 Active Comment on above: Take 2 mg by mouth o nce daily. budesonide 0.5 mg/ml inhalation suspension (20 sources) Corticosteroid Start: 09-11-2020 End: 06-26-2023 take 1 dose by inhalation once daily budesonide (PULMICORT) 1 mg/2 mL nebulizer solution INHALE 1 (ONE) vial via NEBULIZER ONCE DAILY 02/09/2021 Active take 4 mL by inhalation four salima es daily Pulmicort 1 MG/2ML 4 ml Inhalation Four times a day Active Comment on above: INHALE 1 (ONE) vial via NEBULIZER ONCE DAILY dapagliflozin 5 mg oral tablet (20 sources) Sodium-Glucose Cotransporter 2 Inhibitor Start: End: take 5 mg by mouth once daily Dapagliflozin Propanediol Active 5 MG PO Daily December 18, 2018 12:00am Comment on above: Take 5 mg by mouth o nce daily. dexlansoprazole 60 mg delayed release oral capsule (20 sources) Proton Pump Inhibitor Start: End: take 1 capsule by mouth twice daily DEXILANT 60 mg CpDM Take 1 capsule by mouth twice daily. 02/16/2021 Active Comment on above: Take 1 capsule by [facility] twice daily. Dexlansoprazole (Dexilant) 60 mg capsule,biphase delayed releas (15 sources) Start: take 1 capsule by mouth twice daily Dexlansoprazole (Dexilant) 60 mg capsule,biphase delayed releas Active 60 MG PO Twice daily October 10, 2021 12:00am Start: 10-10-2021 take 1 capsule by [facility] twice daily Dexlansoprazole (Dexilant) 60 mg capsule,biphase delayed releas Active 60 MG PO Twice daily October 10, 2021 1:00am docusate sodium 50 mg / sennosides, fpc 8.6 mg oral tablet (1 source) take 1 tablet by mouth every twelve hours Senokot S 8.6-50 MG 1 tablet as needed Orally Twice a day Active doxepin hydrochloride 10 mg oral capsule (20 sources) Tricyclic Antidepressant Start: take 10 mg by mouth three times daily Doxepin Active 10 MG PO Three times daily October 28, 2018 1:00am take 1 capsule by [facility] every twenty-four hours Doxepin HCl 10 MG 1 capsule at bedtime Orally Once a day Active doxycycline hyclate 100 mg oral tablet (15 sources) Tetracycline-class Drug Start: 10-24-2021 take 100 mg by mouth twice daily Doxycycline Hyclate Active 100 MG PO Twice daily 10 October 24, 2021 1:00am DULoxetine 30 mg delayed release oral capsule (20 sources) Serotonin and Norepinephrine Reuptake Inhibitor Start: 05-30-2024 take 1 tablet by mouth once daily DULoxetine (CYMBALTA) 30 mg capsule Take one tab along with the 60mg tab to equal 90mg po qd 30 capsule 6 05/30/2024 Active Start: 10-01-2023 [facility] DULoxetine (CYMBALTA) 60 mg capsule Take one tab along with 30mg tab to equal 90mg po every day 30 capsule 6 05/30/2024 Active Start: 11-03-2022 End: 04-13-2023 take 1 capsule by mouth once daily DULoxetine (CYMBALTA) 60 mg capsule Take 1 capsule by mouth once daily. 30 capsule 3 04/13/2023 Active Start: 09-29-2022 End: 06-26-2023 take 1 capsule by mouth once daily DULoxetine (CYMBALTA) 30 mg capsule Take 1 capsule by mouth once daily. 30 capsule 3 09/29/2022 06/26/2023 Discontinued Comment on above: Take 1 capsule by [facility] once daily. TAKE 1 CAPSULE BY [facility] EVERY DAY etodolac 400 mg oral tablet (20 sources) Nonsteroidal Anti-inflammatory Drug Start: End: 4 take 1 tablet by mouth twice daily as needed etodolac (LODINE) 400 mg tablet One tab po bid prn 60 tablet 3 01/27/2024 Active Comment on above: One tab po bid prn 120 actuat formoterol fumarate 0.005 mg/actuat / mometasone furoate 0.2 mg/actuat metered dose inhaler (20 sources) Corticosteroid, beta2-Adrenergic Agonist Start: 0 take 1 puff(s) by inhalation twice daily Mometasone-Formote rol (Dulera) 200-5 mcg/actuation HFA aerosol inhaler Active 2 PUFF INHALATION Twice daily September 11, 2020 1:00am End: 06-26-2023 mometasone-formoterol (DULER A) 100-5 mcg/actuation inhaler glycopyrrolate 1 mg oral tablet (20 sources) Start: 02-16-2021 take 2 tablets by mouth twice daily glycopyrrolate (ROBINUL) 1 mg tablet Take 2 mg by mouth twice daily. 02/16/2021 Active Start: 10-28-2018 take 3 mg by mouth once daily Glycopyrrolate Active 3 MG PO Daily October 28, 2018 1:00am End: 06-26-2023 glycopyrrolate (ROBINUL) 1 m g tablet Comment on above: Take 2 mg by mouth t wice daily. hydroCHLOROthiazide 25 mg oral tablet (20 sources) Thiazide Diuretic Star t: 08-15 End: 06-14 take 25 mg by mouth once daily Hydrochlorothiazide Active 25 MG PO Daily September 11, 2020 1:00am Comment on above: Take 25 mg by mouth once daily. hydroxychloroquine sulfate 200 mg oral tablet (20 sources) Antimalarial, Antirheumatic Agent Star t: 06-15 End: 05-15 take 1 tablet by mouth twice daily hydrOXYchloroQUINE (PLAQUENIL) 200 mg tablet Take 1 tablet by mouth two times a day. 60 tablet 6 05/30/2024 Active Comment on above: Take 1 tablet by adrian th twice daily. TAKE 1 TABLET BY ADRIAN TH TWICE DAILY Take 1 tablet by adrian th two times a day. ipratropium bromide 0.2 mg/ml inhalation solution (15 sources) Anticholinergic Star t: 08-15 take 0.5 mg by inhalation every six hours Ipratropium [employer] Active 0.5 MG INHALATION Q6H September 11, 2020 1:00am iv contrast (will be provided with radiology test) (1 source) Star t: 04-02 End: 05-03 inject 1 dose intravenously once, then inject 1 dose intravenously once iv contrast (will be provided with radiology test) MRI Skull Base Inject, intravenously, once for 1 dose. No IV access, insert saline lock prior to the beginning of sedation, infusion, injection of imaging exam. Discontinue saline lock post exam. If Pt. has a central line or IVAD, may access for administration according to line specific nursing protocol. Once exam is complete flush line and de-access according to line specific nursing protocol in the MR contrast administration guidelines link. 1 Each 0 01/19/2024 01/20/2024 Active lamoTRIgine 200 mg oral tablet (20 sources) Mood Stabilizer, Anti-epileptic Agent Star t: 01-31 lamoTRIgine (LAMICTAL) 200 mg tablet TAKE 3 TABLETS EVERY DAY 02/16/2021 Active Start: 09-12-2017 take 600 mg by mouth once bibi y Lamotrigine Active 600 MG PO Daily September 12, 2017 1:00am [facility] lamoTRIgine 200 MG 1 tablet on the tongue and allow to dissolve Orally Once a day Active Comment on above: TAKE 3 TABLETS EVERY DAY levothyroxine sodium 0.05 mg oral tablet (1 source) l-Thyroxine take 1 tablet by mouth once daily before breakfast levothyroxine (SYNTHROID) 50 mcg tablet Take 50 mcg by mouth daily before breakfast. Active lisinopril 10 mg oral tablet (15 sources) Angiotensin Converting Enzyme Inhibitor Start: 09-11-20 take 10 mg by mouth once daily Lisinopril Active 10 MG PO Daily September 11, 2020 1:00am lubiprostone 0.024 mg oral capsule (20 sources) Chloride Channel Activator Start: 02-17-20 take 1 capsule by mouth twice daily AMITIZA 24 mcg capsule Take 24 mcg by mouth twice daily. 02/16/2021 Active Start: 10-28-2018 take 1 capsule by [facility] twice daily Lubiprostone (Amitiza) 24 mcg capsule Active 24 MCG PO Twice daily October 28, 2018 12:00am Start: 10-28-2018 take 1 capsule by [facility] twice daily Lubiprostone (Amitiza) 24 mcg capsule Active 24 MCG PO Twice daily October 28, 2018 1:00am take 1 capsule by [facility] twice daily at mealtime Amitiza 24 MCG 1 capsule with food and water Orally Twice a day Active Comment on above: Take 24 mcg by mouth twice daily. metFORMIN hydrochloride 500 mg oral tablet (20 sources) Biguanide Start: 09-12-2017 take 1000 mg by mouth twice daily Metformin Active 1000 MG PO Twice daily September 12, 2017 1:00am metFORMIN (GLUCO PHAGE) 500 mg tablet Active methocarbamol 500 mg oral tablet (9 sources) Muscle Relaxant Start: 02-05-2024 End: 05-25-2024 take 1 tablet by mouth twice daily as needed methocarbamol (ROBAXIN) 500 mg tablet Indications: Chronic daily headache Take 1 tablet by mouth two times a day as needed. 45 tablet 2 05/26/2024 Active Metoprolol (14 sources) beta-Adrenergic Meka Toprol XL Active nortriptyline 25 mg oral capsule (20 sources) Tricyclic Antidepressant Start: 03-13-2024 Nortriptyline Active 25 MG PO November 25, 2023 12:00am Start: 06-26-2023 End: 02-05-2024 take 1 capsule by mouth once daily at bedtime nortriptyline (PAMELOR) 25 mg capsule Indications: Chronic daily headache Take 1 capsule by mouth daily at bedtime. 90 capsule 3 02/05/2024 Active Comment on above: Take 1 capsule by mo uth daily at bedtime. ondansetron 4 mg disintegrating oral tablet (15 sources) Serotonin-3 Receptor Antagonist Start: 022 take 4 mg by mouth every eight hours Ondansetron Active 4 MG PO Q8H October 02, 2021 1:00am pioglitazone 15 mg oral tablet (20 sources) Peroxisome Proliferator Receptor alpha Agonist, Peroxisome Proliferator Receptor gamma Agonist, Thiazolidinedione Start: 019 take 1 tablet by mouth once daily Pioglitazone (Actos) 15 mg tablet Active 15 MG PO Daily October 28, 2018 1:00am Start: 09-12-2017 End: 10-09-2017 Pioglitazone Discontinued TA BLET September 12, 2017 1:00am October 09, 2017 10:47pm predniSONE 5 mg oral tablet (20 sources) Start: 12-11-2022 End: 03-25-2024 take 1-2 tablets by mouth once daily predniSONE (DELTASONE) 5 mg tablet TAKE 1 TO 2 TABLETS BY MOUTH EVERY DAY 60 tablet 3 03/25/2024 Active Start: 11-11-2019 End: 09-11-2020 take 40 mg by mouth once daily Prednisone Discontinued 40 MG PO Daily 10 November 11, 2019 1:00am September 11, 2020 7:28am Start: 12-18-2018 End: 09-11-2020 take 50 mg by mouth once daily at mealtime Prednisone Discontinued 50 MG PO Daily 5 December 18, 2018 12:00am September 11, 2020 7:28am administer with food or milk Comment on above: 1-2 tabs po qd raNITIdine 300 mg oral tablet (15 sources) Histamine-2 Receptor Antagonist Start: 09-12-20 17 take 300 mg by mouth once daily Ranitidine Hcl Active 300 MG PO Daily September 12, 2017 1:00am roflumilast 0.5 mg oral tablet (20 sources) Phosphodiesterase 4 Inhibitor Start: 09-12-20 End: 06-26-20 take 1 tablet by mouth once daily Roflumilast (Daliresp) 500 mcg tablet Active 500 MCG PO Daily September 12, 2017 1:00am take 1 tablet by adrian th every twenty-four hours Daliresp 500 MCG 1 tablet Orally Once a day Active simvastatin 20 mg oral tablet (20 sources) HMG-CoA Reductase Inhibitor Start: 10-28-2018 take 1 tablet by mouth once daily simvastatin (ZOCOR) 20 mg tablet Take 20 mg by mouth once daily. 02/16/2021 Active Comment on above: Take 20 mg by mouth once daily. sucralfate 1000 mg oral tablet (20 sources) Aluminum Complex Start: 10-02-2021 End: 10-10-2021 take 1 tablet by mouth at bedtime Sucralfate (Carafate) 1 gram tablet Active 1 GM PO Before meals and at bedtime October 10, 2021 12:59pm Start: 10-28-2018 End: 09-11-2020 take 1 g by mouth four times daily Sucralfate Discontinued 1 GM PO Four times daily October 28, 2018 1:00am September 11, 2020 7:28am Carafate 1 GM 1 tablet on an empty stomach Orally PRN Active tiZANidine 4 mg oral tablet (20 sources) Central alpha-2 Adrenergic Agonist Start: 06-26-2023 End: 02-05-2024 take 1 tablet by mouth every eight hours as needed tiZANidine (ZANAFLEX) 4 mg tablet Indications: Chronic daily headache take 1 tablet by mouth every 8 hours as needed 60 tablet 3 02/02/2024 02/05/2024 Discontinued (Side Effects) Comment on above: Take 1 tablet by adrian th every 8 hours as needed. topiramate 50 mg oral tablet (15 sources) Start: 10-24-2021 take 1 tablet by mouth once daily Topiramate (Topamax) 50 mg Tablet Active 50 MG PO Daily October 24, 2021 1:00am traMADol hydrochloride 50 mg oral tablet (5 sources) Opioid Agonist Start: 07-30-2020 take 1 tablet by mouth every four to six hours as needed for pain traMADol HCl 50 MG 1 tablet as needed for pain Orally every 4-6 hours for 7 days prn Jul, Active vilazodone hydrochloride 40 mg oral tablet (20 sources) Start: 09-12-2017 take 1 tablet by mouth once daily Vilazodone (Viibryd) 40 mg tablet Active 40 MG PO Daily September 12, 2017 1:00am Comment on above: Take 40 mg by mouth once daily. Water Pills - (18 sources) Water Pills - as directed Orally Active Completed/Discontinued Medications Medication Drug Class(es) Dates Sig (Normalized) Sig (Original) acetaminophen 325 mg / oxyCODONE hydrochloride 5 mg oral tablet (15 sources) Opioid Agonist Start: 09-18-2021 End: 10-02-2021 take 1 tablet by mouth every four to six hours Oxycodone-Acetamin ophen (Percocet) 5-325 mg tablet Discontinued 1 TAB PO EVERY 4-6 HOURS 10 September 18, 2021 October 02, 2021 4:22am amoxicillin 875 mg / clavulanate 125 mg oral tablet (20 sources) Penicillin-class Antibacterial Start: 05-16-2019 End: 09-11-2020 take 1 tablet by mouth twice daily Amoxicillin-Pot Clavulanate (Augmentin) 875-125 mg tablet Discontinued 1 TAB PO Twice daily 20 May 16, 2019 12:00am September 11, 2020 7:25am Start: 10-09-2017 End: 10-28-2018 take 1 tablet by mouth twice daily Amoxicillin-Pot Clavulanate (Augmentin) 875-125 mg tablet Discontinued 1 TAB PO Twice daily 20 October 09, 2017 1:00am October 28, 2018 12:18pm amylase [id number] unt / lipase 44486 unt / protease [id number] unt delayed release oral capsule (15 sources) Start: 09-12-2017 End: 10-28-2018 take [id number] capsules by mouth three times daily Wyzdac-Uxeoxqmd-Asljpyz (Creon) 24,000-76,000 -120,000 unit capsule,delayed release(DR/EC) Discontinued 1 TAB PO Three times daily September 12, 2017 1:00am October 28, 2018 12:18pm azithromycin 500 mg oral tablet (15 sources) Macrolide Antimicrobial Start: 10-11-2017 End: 10-16-2017 take 500 mg by mouth once daily Azithromycin Discontinued 500 MG PO Daily 5 October 11, 2017 1:00am October 16, 2017 1:04am canagliflozin 100 mg oral tablet (15 sources) Sodium-Glucose Cotransporter 2 Inhibitor Start: 09-12-2017 End: 12-18-2018 take 100 mg by mouth once daily Canagliflozin Discontinued 100 MG PO Daily September 12, 2017 1:00am December 18, 2018 1:46pm carisoprodol 350 mg oral tablet (15 sources) Muscle Relaxant Start: 09-12-2017 End: 10-28-2018 take 350 mg by mouth four times daily Carisoprodol Discontinued 350 MG PO Four times daily September 12, 2017 1:00am October 28, 2018 12:18pm cephalexin 500 mg oral tablet (15 sources) Cephalosporin Antibacterial Start: 09-18-2021 End: 10-10-2021 take 500 mg by mouth four times daily Cephalexin Discontinued 500 MG PO Four times daily September 18, 2021 1:00am October 10, 2021 12:45pm dexamethasone 6 mg oral tablet (10 sources) Corticosteroid Start: 01-04-2021 End: 06-26-2023 take 1 tablet by mouth once daily dexAMETHasone (DECADRON) 6 mg tablet TAKE 1 TABLET BY MOUTH EVERY DAY FOR 6 DAYS 0 01/04/2021 06/26/2023 Discontinued Comment on above: TAKE 1 TABLET BY MOUTH EVERY DAY FOR 6 D AYS diclofenac sodium 75 mg delayed release oral tablet (15 sources) Nonsteroidal Anti-inflammatory Drug Start: 01-27-2020 End: 06-26-2023 take 1 tablet by mouth twice daily diclofenac, EC, (VOLTAREN) 75 mg EC tablet Take 75 mg by mouth twice daily. 0 12/21/2020 06/26/2023 Discontinued Comment on above: Take 75 mg by mouth twice daily. Gel-Syn (20 sources) Start: 03-08-2020 Gel-Syn Feb, 2 mL Start: 03-01-2020 Gel-Syn Feb 2 mL Start: 02-16-2020 Gel-Syn Feb 2 mL hydrOXYzine pamoate 25 mg oral capsule (15 sources) Antihistamine Start: 09-12-2017 End: 09-11-2020 take 25 mg by mouth four times daily Hydroxyzine Pamoate Discontinued 25 MG PO Four times daily September 12, 2017 1:00am September 11, 2020 7:26am ibuprofen 600 mg oral tablet (20 sources) Nonsteroidal Anti-inflammatory Drug Start: 09-18-2021 End: 10-10-2021 Ibuprofen Discontinued 600 MG PO EVERY 4-6 HOURS 02 04September 18, 2021 1:00am October 10, 2021 12:49pm do not exceed 4 doses in a 24 hour period Start: 05-16-2019 take 800 mg by mouth every six hours Ibuprofen Active 800 MG PO Q6H May 16, 2019 12:00am levoFLOXacin 500 mg oral tablet (10 sources) Quinolone Antimicrobial Start: 01-04-2021 End: 06-26-2023 take 1 tablet by mouth once daily levoFLOXacin (LEVAQUIN) 500 mg tablet Take 500 mg by mouth once daily. 0 01/04/2021 06/26/2023 Discontinued Comment on above: Take 500 mg by mouth once daily. lurasidone hydrochloride 120 mg oral tablet (15 sources) Atypical Antipsychotic Start: 09-12-2017 End: 10-28-2018 take 1 tablet by mouth once daily Lurasidone (Latuda) 120 mg tablet Discontinued 120 MG PO Daily September 12, 2017 1:00am October 28, 2018 12:18pm milnacipran hydrochloride 100 mg oral tablet (20 sources) Serotonin and Norepinephrine Reuptake Inhibitor Start: 02-16-2021 End: 06-30-2023 take 1 tablet by mouth twice daily SAVELLA 100 mg tab Take 100 mg by mouth twice daily. 0 02/16/2021 06/30/2023 Discontinued (Course of therapy completed) Start: 09-12-2017 take 1 tablet by adrian th twice daily Milnacipran (Savella) 50 mg tablet Active 100 MG PO Twice daily September 12, 2017 1:00am Comment on above: Take 100 mg by mouth twice daily. oxyCODONE hydrochloride 30 mg oral tablet (20 sources) Opioid Agonist Start: 10-09-2017 End: 10-28-2018 take 30 mg by mouth four times daily Oxycodone Discontinued 30 MG PO Four times daily October 09, 2017 1:00am October 28, 2018 12:19pm Start: 09-12-2017 End: 10-28-2018 take 1 tablet by mouth twice daily, then take 1 tablet by mouth every twelve hours Oxycodone (Oxycontin) 40 mg tablet extended release 12hr Discontinued 40 MG PO Twice daily September 12, 2017 1:00am October 28, 2018 12:19pm pantoprazole 40 mg delayed release oral tablet (15 sources) Proton Pump Inhibitor Start: 09-12-2017 End: 09-11-2020 take 40 mg by mouth twice daily Pantoprazole Discontinued 40 MG PO Twice daily September 12, 2017 1:00am September 11, 2020 7:28am phentermine hydrochloride 37.5 mg oral tablet (11 sources) Sympathomimetic Amine Anorectic Start: 01-25-2021 End: 06-30-2023 take 1 tablet by mouth once daily Phentermine HCl 37.5 mg tablet Take 37.5 mg by mouth once daily. 0 01/25/2021 06/30/2023 Discontinued (Course of therapy completed) Comment on above: Take 37.5 mg by mout h once daily. pregabalin 100 mg oral capsule (5 sources) take 1 capsule by mouth every twenty-four hours Lyrica 100 MG 1 capsule Orally Once a day Not-Taking Theraputic Injection (20 sources) Start: 08-11-2017 Theraputic Injection Jul, 168 U Start: 08-04-2017 Theraputic Inj ection Jul, 380 mg triamcinolone acetonide 40 mg/ml injectable suspension (20 sources) Corticosteroid Start: 02-04-2023 Kenalog-40 January, 20 mg Start: 01-24-2022 Kenalog-40 Sep, 30 mg Start: 12-02-2021 Kenalog-40 Mar, 40 mg Start: 12-02-2021 Kenalog -40 mg Nov, 40 mg Start: 08-28-2021 Kenalog -40 mg Aug, 20 mg Start: 07-30-2021 Kenalog -40 mg Jul, 40 mg Start: 05-15-2021 Kenalog -40 mg May, 20 mg Start: 04-10-2021 Kenalog -40 mg Mar, 40 mg Start: 11-15-2020 Kenalog -40 mg Nov, 40 mg Start: 01-26-2020 Kenalog -40 mg January, 40 mg Start: 07-07-2017 Kenalog -40 mg Jun, 40 mg Start: 04-09-2017 Kenalog -40 mg Mar, 40 mg Start: 12-11-2016 Kenalog -40 mg Nov, Problems Active Problems Problem Classification Problem Date Documented Da te Episodic/Chronic Abdominal pain (20 sources) Upper abdominal pain; Translations: [Upper abdominal pain, unspecified] 11-02-2018 Episodic Anxiety disorders (15 sources) Anxiety; Translations: [Anxiety disorder, unspecified] 09-12-2017 Chronic Appendicitis and other appendiceal conditions (15 sources) Acute appendicitis; Translations: [Unspecified acute appendicitis] 09-17-2021 Episodic Chronic obstructive pulmonary disease and bronchiectasis (15 sources) Acute exacerbation of chronic obstructive airways disease 11-11-2019 Chronic Diabetes mellitus with complications (20 sources) Secondary diabetes mellitus; Translations: [Other specified diabetes mellitus with diabetic autonomic (poly)neuropathy] Chronic Disorders of lipid metabolism (1 source) Hyperlipidemia, unspecified; Translations: [Hyperlipidemia, unspecified] Onset: 4 Chronic E Codes: Natural/environment (20 sources) Dog bite - wound; Translations: [Bitten by dog, initial encounter] 05-16-2019 Episodic Esophageal disorders (20 sources) Gastroesophageal reflux disease; Translations: [Gastro-esophageal reflux disease without esophagitis] Chronic Gastritis and duodenitis (19 sources) Chronic superficial gastritis; Translations: [Chronic superficial gastritis without bleeding] Chronic Gastritis and duodenitis (20 sources) Gastritis; Translations: [Gastritis, unspecified, without bleeding] 10-02-2021 Episodic Gastrointestinal hemorrhage (15 sources) Rectal hemorrhage; Translations: [Hemorrhage of anus and rectum] 11-02-2018 Episodic Headache; including migraine (20 sources) Intractable chronic tension headache; Translations: [Chronic tension-type headache, intractable] Onset: 3 06-01-2023 Chronic Headache; including migraine (5 sources) Medication overuse headache; Translations: [Drug-induced headache, not elsewhere classified, not intractable] 06-26-2023 Episodic Nausea and vomiting (20 sources) Nausea; Translations: [Nausea] Episodic Osteoarthritis (20 sources) Arthritis; Translations: [Unspecified osteoarthritis, unspecified site] Onset: 1 Resolved: 2 Chronic Other aftercare (1 source) Patient encounter status; Translations: [Encounter for therapeutic drug level monitoring] 05-30-2024 Episodic Other and unspecified benign neoplasm (2 sources) Neoplasm of meninges; Translations: [Benign neoplasm of meninges, unspecified] 06-26-2023 Chronic Other and unspecified benign neoplasm (20 sources) Intracranial meningioma; Translations: [Benign neoplasm of cerebral meninges] Onset: 3 06-01-2023 Chronic Other and unspecified benign neoplasm (2 sources) Benign neoplasm of meninges; Translations: [Benign neoplasm of meninges, unspecified] 01-29-2024 Chronic Other and unspecified benign neoplasm (2 sources) Benign neoplasm of meninges, unspecified; Translations: [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)] Onset: 4 Chronic Other bone disease and musculoskeletal deformities (19 sources) Aseptic necrosis of carpal bone; Translations: [Other osteonecrosis of right carpus] Chronic Other bone disease and musculoskeletal deformities (19 sources) Kienbock's disease of adults; 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] Chronic Other bone disease and musculoskeletal deformities (20 sources) Osteochondritis of the carpal lunate; Translations: [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], right hand] 09-17-2021 Chronic Other bone disease and musculoskeletal deformities (19 sources) Progressive avascular necrosis of lunate; 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] Chronic Other bone disease and musculoskeletal deformities (14 sources) 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], right hand; Translations: [Juvenile osteochondrosis of upper extremity] Onset: 1 Resolved: 2 Chronic Other connective tissue disease (2 sources) Muscle pain; Translations: [Myalgia, unspecified site] Episodic Other connective tissue disease (19 sources) Tendinitis of wrist; Translations: [Other enthesopathies, not elsewhere classified] Episodic Other connective tissue disease (19 sources) Radial styloid tenosynovitis; Translations: [Radial styloid tenosynovitis [de Quervain]] Episodic Other connective tissue disease (19 sources) Supraspinatus tear; Translations: [Unspecified rotator cuff tear or rupture of right shoulder, not specified as traumatic] Episodic Other connective tissue disease (6 sources) Unspecified rotator cuff tear or rupture of right shoulder, not specified as traumatic; Translations: [Tear of right supraspinatus tendon M75.101] Onset: 1 Resolved: 2 Episodic Other connective tissue disease (1 source) Bicipital tendinitis, left shoulder Episodic Other connective tissue disease (1 source) Other specified disorders of tendon, right shoulder Episodic Other connective tissue disease (2 sources) Fibromyalgia; Translations: [Fibromyalgia] Episodic Other connective tissue disease (4 sources) Biceps tendinitis; Translations: [Bicipital tendinitis, unspecified shoulder] 01-26-2024 Episodic Other connective tissue disease (3 sources) Bicipital tendinitis, unspecified shoulder; Translations: [Bicipital tenosynovitis] 01-26-2024 Episodic Other disorders of stomach and duodenum (15 sources) Disorder of function of stomach; Translations: [Disease of stomach and duodenum, unspecified] 11-02-2018 Episodic Other endocrine disorders (19 sources) Disorder of pancreatic internal secretion; 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, unspecified] Chronic Other gastrointestinal disorders (19 sources) Constipation; Translations: [Constipation, unspecified] Episodic Other gastrointestinal disorders (1 source) Abdominal distension (gaseous) Episodic Other gastrointestinal disorders (1 source) Eructation Episodic Other gastrointestinal disorders (1 source) Diarrhea, unspecified Episodic Other gastrointestinal disorders (1 source) Constipation, unspecified Episodic Other nervous system disorders (19 sources) Carpal tunnel syndrome; Translations: [Carpal tunnel syndrome, right upper limb] Chronic Other nervous system disorders (19 sources) Cubital tunnel syndrome; Translations: [Lesion of ulnar nerve, right upper limb] Chronic Other nervous system disorders (19 sources) Bilateral carpal tunnel syndrome; Translations: [Carpal tunnel syndrome, bilateral upper limbs] Chronic Other nervous system disorders (1 source) Carpal tunnel syndrome, right upper limb Onset: 1 Resolved: 1 Chronic Other nervous system disorders (1 source) Mass lesion of brain; Translations: [Other specified disorders of brain] 06-26-2023 Chronic Other nervous system disorders (1 source) Other specified disorders of brain; Translations: [Brain mass] Onset: 3 Chronic Other nervous system disorders (15 sources) Pain in limb; Translations: [Other acute postprocedural pain] 10-24-2021 Episodic Other non-traumatic joint disorders (19 sources) Pain of right wrist; Translations: [Pain in right wrist] Episodic Other non-traumatic joint disorders (13 sources) Pain in right shoulder; Translations: [Acute pain of right shoulder] Onset: 1 Resolved: 2 Episodic Other non-traumatic joint disorders (3 sources) Pain in left shoulder Onset: 2 Resolved: 2 Episodic Other non-traumatic joint disorders (8 sources) Pain in right wrist; Translations: [Pain in joint, forearm] Onset: 2 Resolved: 2 Episodic Other non-traumatic joint disorders (5 sources) Pain in wrist; Translations: [Pain in right wrist] 11-24-2023 Episodic Other nutritional; endocrine; and metabolic disorders (20 sources) Body mass index 30+ - obesity; Translations: [Body mass index (BMI) 33.0-33.9, adult] Chronic Residual codes; unclassified (6 sources) Other specified postprocedural states Onset: 2 Resolved: 2 Episodic Skin and subcutaneous tissue infections (15 sources) Cellulitis of forearm; Translations: [Cellulitis of unspecified part of limb] 10-11-2017 Episodic Sprains and strains (8 sources) Strain of muscle, fascia and tendon of other parts of biceps, right arm, initial encounter; Translations: [Strain of other muscles, fascia and tendons at shoulder and upper arm level, left arm, initial encounter] Onset: 1 Resolved: 2 Episodic Thyroid disorders (1 source) Nontoxic single thyroid nodule; Translations: [Nontoxic single thyroid nodule] Onset: 4 Chronic Past or Other Problems Problem Classification Problem Date Documented Date Episodic/Chronic Deficiency and other anemia (1 source) Iron deficiency anemia, unspecified; Translations: [Iron deficiency anemia, unspecified] Onset: 11-11-2023 Episodic Other connective tissue disease (1 source) Enthesopathy, unspecified; Translations: [Tendonitis M77.9] Onset: 06-05-2021 Resolved: 06-05-2021 Episodic Other connective tissue disease (2 sources) Radial styloid tenosynovitis [de Quervain]; Translations: [De Quervain's tenosynovitis, right M65.4] Onset: 06-05-2021 Resolved: 10-05-2021 Episodic Other connective tissue disease (1 source) Synovitis and tenosynovitis, unspecified; Translations: [Tenosynovitis M65.9] Onset: 06-05-2021 Resolved: 06-05-2021 Episodic Other connective tissue disease (1 source) Fibromyalgia; Translations: [Fibromyalgia] Onset: 01-08-2024 Episodic Other nervous system disorders (1 source) Paresthesia of skin; Translations: [Paresthesia of skin] Onset: 02-09-2024 Episodic Results Test Name Value Interpretation Reference Range Facility CNOVon 05-30-2024 CNOV Office Visit (MAGDALENASHANNON ) KISHOREKOURTNEY Alex ([id number]) 1975 F Date Time Provider Department 05/30/24 9:40 AM ZEINAB WOOD During your visit today, we recorded the following information about you: Pulse Respiration Blood pressure Weight 87/minute 18/minute 109/72 109 kg Zeinab Wood MD 05/30/2024 10:17 AM Signed Kourtney Leoneric is a 47 year old female who presents for follow up: [facility] elevated crp Negative RF, CCP, DWAYNE PREVIOUS DIAG arthralgias, FM, COPD INTERVAL HISTORY since last visit, has good and bad days Today has pain in neck and low back Pain of both legs on walking Continues to be on plaquenil and feels it is helping. Has ''not pulled a tendon while taking it'' felt plaquenil was helping significantly in beginning but now has ''pulling of tendons '' sensation currently Em stiffness- for about half hour No rash, ulcers, fevers, swollen lymph nodes, DVT/PE, raynauds, sicca symptoms, trouble swallowing, back pain, red eyes, Chron's/UC or Psoriasis. MEDS/THERAPIES TRIED: Plaquenil bid - started on 03/04 Prednisone- great response Savella for FM Gabapentin and lyrica- SE Cymbalta- started on 10/06 Mobic - did not help GENERAL: No weight loss, malaise or fevers., SEE HPI HEENT: Negative for frequent or significant headaches, No changes in hearing or vision, no nose bleeds or other nasal problems RESPIRATORY: Negative for cough, wheezing or shortness of breath. CARDIOVASCULAR: Negative for chest pain, leg swelling or palpitations. GI: Negative for abdominal discomfort, blood in stools or black stools or change in bowel habits MUSCULOSKELETAL :see HPI SKIN: Negative for lesions, rash, and itching. PSYCH: Negative for sleep disturbance, mood disorder and recent psychosocial stressors. NEURO: No history of headaches, syncope, paralysis, seizures or tremors All other reviewed and negative other than HPI. PAST MEDICAL HISTORY Diagnosis Date Anxiety COPD (chronic obstructive pulmonary disease) (HCC) Depression Diabetes mellitus (HCC) Fibromyalgia Mixed hyperlipidemia PAST SURGICAL HISTORY Procedure Laterality Date APPENDECTOMY 2020 HAND SURGERY HX Right 2020 REVISE MEDIAN N/CARPAL TUNNEL SURG Bilateral methocarbamol (ROBAXIN) 500 mg tablet Take 1 tablet by mouth two times a day as needed. predniSONE (DELTASONE) 5 mg tablet TAKE 1 TO 2 TABLETS BY MOUTH EVERY DAY nortriptyline (PAMELOR) 25 mg capsule Take 1 capsule by mouth daily at bedtime. etodolac (LODINE) 400 mg tablet One tab po bid prn hydrOXYchloroQUINE (PLAQUENIL) 200 mg tablet take 1 tablet by mouth twice daily DULoxetine (CYMBALTA) 60 mg capsule Take 1 capsule by mouth once daily. vilazodone (VIIBRYD) 40 mg tablet Take 40 mg by mouth once daily. benzonatate (TESSALON PERLES ORAL) REXULTI 2 mg tablet Take 2 mg by mouth once daily. budesonide (PULMICORT) 1 mg/2 mL nebulizer solution INHALE 1 (ONE) vial via NEBULIZER ONCE DAILY dapagliflozin (FARXIGA) 5 mg tablet DEXILANT 60 mg CpDM Take 1 capsule by mouth twice daily. doxepin capsule 10 mg glycopyrrolate (ROBINUL) 1 mg tablet Take 2 mg by mouth twice daily. ipratropium-albuterol (DUONEB) 0.5 mg-3 mg(2.5 mg base)/3 mL nebu lamoTRIgine (LAMICTAL) 200 mg tablet TAKE 3 TABLETS EVERY DAY AMITIZA 24 mcg capsule Take 24 mcg by mouth twice daily. metFORMIN (GLUCOPHAGE) 500 mg tablet pioglitazone (ACTOS) 15 mg tablet simvastatin (ZOCOR) 20 mg tablet Take 20 mg by mouth once daily. levothyroxine (SYNTHROID) 50 mcg tablet Take 50 mcg by mouth daily before breakfast. sucralfate (CARAFATE) 1 gram tablet (Patient not taking: Reported on 09/28/2023) FAMILY HISTORY Problem Relation Age of Onset Seizures Brother Social History Tobacco Use Smoking status: Former Smokeless tobacco: Never Substance Use Topics Alcohol use: Yes Drug use: Never BP 109/72 Pulse 87 Resp 18 Wt 109 kg (240 lb 4.8 oz) BMI 40.61 kg/m? PE; Well built and nourished. Pleasant mood. In no acute distress. Examination of the skin: She has no rashes, ulcers, nodules or tightening of the skin. Eyes: Pupils are equal in size and reactive to light. Conjunctivae are noninjected. Sclerae are anicteric. Ears, Nose, Mouth and Throat: Nasal mucosa and septum appear normal. Teeth and gums appear normal. Oropharynx is clear of erythema and exudate. Hearing is grossly normal. Neck: Supple. There is no JVD. Trachea is in the midline. There are no palpable lymph nodes or scars. Respiratory: Lungs are clear to auscultation bilaterally with no dullness to percussion. There is good air movement in all lung zones. Cardiovascular: Heart rate is regular. Nomurmur or rub is appreciated. She has no carotid or abdominal bruits. Pedal pulses are easily palpable. She has no significant edema or varicosities of his lower extremities. GI: Bowel sounds are p (more content not included)... Normal [facility] A1C with Estimated Average G tanesha 05-12-2024 Glucose [Mass/Vol] 114 mg/dL Normal [facility] Comment on above: Order Comment: PIPER SANTOS. OgKJerilyn Result Comment: PERF ORMED BY: [facility] [address] [place] [address] PATHOLOGIST FOLDED CLOTH TAPER MONIK SILVESTRE M.D. Performed By: #### V [id number], TSH3, A1C WTH eA, DIFF CBC, [id number], LIPID, FE, CMP, T3F, T4T #### [facility] [address] [place] [address] [place] #### INSULIN #### [facility] , Alanine aminotransferase [En zymatic activity/volume] in Serum or PlasmaOrdered By: Sammie Gonzalez on 05-12-2024 ALT [Catalytic activity/Vol] 17 U/L Normal 7-52 [facility] Comment on above: Order Comment: FASTI NG. JKW Performed By: #### V [id number], TSH3, A1C WTH eA, DIFF CBC, [id number], LIPID, FE, CMP, T3F, T4T #### [facility] [address] [place] [address] [place] #### INSULIN #### [facility] , Albumin [Mass/volume] in Ser um or Plasma by Bromocresol green (BCG) dye binding methoOrdered By: Sammie Gonzalez on 05-12-2024 Albumin BCG dye [Mass/Vol] 4.1 g/dL 3.5-5.7 [facility] Alkaline phosphatase [Enzyma tic activity/volume] in Serum or PlasmaOrdered By: Sammie Gonzalez on 05-12-2024 ALP [Catalytic activity/Vol] 42 U/L Normal 34-104 [facility] Comment on above: Order Comment: FASTI NG. JKW Performed By: #### V [id number], TSH3, A1C WTH eA, DIFF CBC, [id number], LIPID, FE, CMP, T3F, T4T #### [facility] [address] [place] [address] [place] #### INSULIN #### [facility] , Anisocytosis [Presence] in B lood by Light microscopyOrdered By: Sammie Gonzalez on 05-12-2024 Anisocytosis Ql (Bld) Slight Normal [facility] Comment on above: Order Comment: FASTI NG. JKW Performed By: #### V [id number], TSH3, A1C WTH eA, DIFF CBC, [id number], LIPID, FE, CMP, T3F, T4T ####[facility]#### INSULIN ####[facility] , Aspartate aminotransferase [ Enzymatic activity/volume] in Serum or PlasmaOrdered By: Sammie Gonzalez on 05-12-2024 AST [Catalytic activity/Vol] 11 U/L Low 13-39 [facility] Comment on above: Order Comment: FASTI NG. JKW Performed By: #### V [id number], TSH3, A1C WTH eA, DIFF CBC, [id number], LIPID, FE, CMP, T3F, T4T #### [facility] [address] #### INSULIN #### [facility] , Basophils Auto (Bld) [#/Vol] Ordered By: Sammie Gonzalez on 05-12-2024 Basophils (Bld) [#/Vol] N/A [facility] Basophils/100 WBC Auto (Bld) Ordered By: Sammie Gonzalez on 05-12-2024 Basophils/100 WBC (Bld) N/A F [facility] Basophils/100 leukocytes in Blood by Manual countOrdered By: Sammie Gonzalez on 05-12-2024 Basophils/100 WBC (Bld) 1 % Normal 0-2 [facility] Comment on above: Order Comment: FASTI NG. JKW Performed By: #### V [id number], TSH3, A1C WTH eA, DIFF CBC, [id number], LIPID, FE, CMP, T3F, T4T ####[facility]#### INSULIN ####[facility] , Bilirubin.total [Mass/volume ] in Serum or PlasmaOrdered By: Sammie Gonzalez on 05-12-2024 Bilirubin [Mass/Vol] 0.4 mg/dL Normal 0.3-1.0 [facility] Comment on above: Order Comment: FASTI NG. JKW Performed By: #### V [id number], TSH3, A1C WTH eA, DIFF CBC, [id number], LIPID, FE, CMP, T3F, T4T #### [facility] [address] [place] [address] #### INSULIN #### [facility] , Calcium [Mass/volume] in Ser um or PlasmaOrdered By: Sammie Gonzalez on 05-12-2024 Calcium [Mass/Vol] 9.4 mg/dL Normal 8.6-10.3 [facility] Comment on above: Order Comment: FASTI NG. JKW Performed By: #### V [id number], TSH3, A1C WTH eA, DIFF CBC, [id number], LIPID, FE, CMP, T3F, T4T #### [facility] [address] [place] [address] #### INSULIN #### [facility] , Carbon dioxide, total [Moles /volume] in Serum or PlasmaOrdered By: Sammie Gonzalez on 05-12-2024 CO2 [Moles/Vol] 27.0 mmol/L Normal 21.0-31.0 [facility] Comment on above: Order Comment: FASTI NG. JKW Performed By: #### V [id number], TSH3, A1C WTH eA, DIFF CBC, [id number], LIPID, FE, CMP, T3F, T4T #### [address] #### INSULIN #### [facility] , Chloride [Moles/volume] in S micki or PlasmaOrdered By: Sammie Gonzalez on 05-12-2024 Chloride [Moles/Vol] 101 mmol/L Normal 98-107 [facility] Comment on above: Order Comment: FASTI NG. JKW Performed By: #### V [id number], TSH3, A1C WTH eA, DIFF CBC, [id number], LIPID, FE, CMP, T3F, T4T #### [facility] [address] [place] [address] [place] #### INSULIN #### [facility] , Cholesterol [Mass/volume] in Serum or PlasmaOrdered By: Sammie Gonzalez on 05-12-2024 Cholesterol [Mass/Vol] 191 mg/dL Normal 140-200 [facility] Comment on above: Chol less than 200 m g/dl low riskChol 201-239 mg/dl borderline riskChol 240 mg/dl and greater high risk Order Comment: PIPER BOX JKW Result Comment: Chol less than 200 mg/dl low risk Chol 201-239 mg/dl borderline risk Chol 240 mg/dl and greater high risk Performed By: #### V [id number], TSH3, A1C WTH eA, DIFF CBC, [id number], LIPID, FE, CMP, T3F, T4T ####[facility] Sci[address]#### INSULIN ####[facility] , Cholesterol in LDL Calc [Mas s/Vol]Ordered By: Sammie Gonzalez on 05-12-2024 Cholesterol in LDL [Mass/Vol] 76 mg/dL 0-100 [facility] Comment on above: LDL ATP III CLASSIFI CATIONLDL less than 100 mg/dL OptimalLDL 100-129 mg/dL Near or above optimalLDL 130-159 mg/dL Borderline highLDL 160-189 mg/dL HighLDL greater than 189 mg/dL Very high Cholesterol in VLDL Calc [Ma ss/Vol]Ordered By: Sammie Gonzalez on 05-12-2024 Cholesterol in VLDL [Mass/Vol] 29 mg/dL [facility] Comprehensive Metabolic Pane costa 05-12-2024 Albumin [Mass/Vol] 4.1 g/dL Normal 3.5-5.7 [facility] Comment on above: Order Comment: PIPER FoleyKW Performed By: #### V [id number], TSH3, A1C WTH eA, DIFF CBC, [id number], LIPID, FE, CMP, T3F, T4T #### [facility] [address] [place] [address] [place] #### INSULIN #### [facility] , GFR/1.73 sq M.predicted MDRD (S/P/Bld) [Vol rate/Area] mL/min/{1.73_m2} Normal [facility] Comment on above: Order Comment: FASTI NG. JKW Performed By: #### V [id number], TSH3, A1C WTH eA, DIFF CBC, [id number], LIPID, FE, CMP, T3F, T4T #### [facility] [address] [place] [address] #### INSULIN #### [facility] , Creatinine [Mass/volume] in Serum or PlasmaOrdered By: Sammie Gonzalez on 05-12-2024 Creatinine [Mass/Vol] 1.05 mg/dL Normal 0.60-1.20 [facility] Comment on above: Order Comment: FASTI NG. JKW Performed By: #### V [id number], TSH3, A1C WTH eA, DIFF CBC, [id number], LIPID, FE, CMP, T3F, T4T #### [address] #### INSULIN #### [facility] , Diff and CBCon 05-12-2024 Mean Corpuscular HGB Conc 33.0 g/dL Normal 32.0-35.0 [facility] Comment on above: Order Comment: FASTI NG. JKW Performed By: #### V [id number], TSH3, A1C WTH eA, DIFF CBC, [id number], LIPID, FE, CMP, T3F, T4T ####[address]#### INSULIN ####[facility] , Metamyelocytes 2 % High 0-0 [facility] Comment on above: Order Comment: FASTI NG. JKW Performed By: #### V [id number], TSH3, A1C WTH eA, DIFF CBC, [id number], LIPID, FE, CMP, T3F, T4T ####[address]#### INSULIN ####[facility] , Microcytosis Slight Normal [facility] Comment on above: Order Comment: FASTI NG. JKW Performed By: #### V [id number], TSH3, A1C WTH eA, DIFF CBC, [id number], LIPID, FE, CMP, T3F, T4T ####[address]#### INSULIN ####[facility] , Platelet Estimate Normal Normal Normal [facility] Comment on above: Order Comment: FASTI NG. JKW Performed By: #### V [id number], TSH3, A1C WTH eA, DIFF CBC, [id number], LIPID, FE, CMP, T3F, T4T ####[address]#### INSULIN ####[facility] , Platelet Morphology Normal Normal Normal [facility] Comment on above: Order Comment: FASTI NG. JKW Result Comment: PERF ORMED BY: [facility] [address] [facility] [place] [address] PATHOLOGIST FOLDED CLOTH TAPER MONIK SILVESTRE M.D. Performed By: #### V [id number], TSH3, A1C WTH eA, DIFF CBC, [id number], LIPID, FE, CMP, T3F, T4T ####[address]#### INSULIN ####[facility] , Eosinophils Auto (Bld) [#/Vo l]Ordered By: Sammie Gonzalez on 05-12-2024 Eosinophils (Bld) [#/Vol] N/A [facility] Eosinophils/100 WBC Auto (Bl d)Ordered By: Sammie Gonzalez on 05-12-2024 Eosinophils/100 WBC (Bld) N/A [facility] Eosinophils/100 leukocytes i n Blood by Manual countOrdered By: Sammie Gonzalez on 05-12-2024 Eosinophils/100 WBC (Bld) 2 % Normal 1-3 [facility] Comment on above: Order Comment: FASTI NG. JKW Performed By: #### V [id number], TSH3, A1C WTH eA, DIFF CBC, [id number], LIPID, FE, CMP, T3F, T4T ####[place] [address] [address]#### INSULIN ####[facility] , Erythrocyte distribution wid th [Ratio] by Automated countOrdered By: Sammie Gonzalez on 05-12-2024 Erythrocyte distribution width (RBC) [Ratio] 13.9 % Normal 11.9-15.3 [facility] Comment on above: Order Comment: FASTI NG. JKW Performed By: #### V [id number], TSH3, A1C WTH eA, DIFF CBC, [id number], LIPID, FE, CMP, T3F, T4T ####[address]#### INSULIN ####[facility] , Erythrocytes [#/volume] in B lood by Automated countOrdered By: Sammie Gonzalez on 05-12-2024 RBC (Bld) [#/Vol] 4.30 10*6/uL Normal 3.60-5.00 [facility] Comment on above: Order Comment: FASTI NG. JKW Performed By: #### V [id number], TSH3, A1C WTH eA, DIFF CBC, [id number], LIPID, FE, CMP, T3F, T4T ####[address]#### INSULIN ####[facility] , Folate [Mass/volume] in Seru m or PlasmaOrdered By: Sammie Gonzalez on 05-12-2024 Folate [Mass/Vol] 7.8 ng/mL >5.9 [facility] Comment on above: Folate reference ran ge: >5.9 ng/mlThe WHO technical consultation on folate and vitamin [id number] has determined that folate concentrations lessthan 4 ng/ml are considered deficient. Glucose [Mass/volume] in Ser um or PlasmaOrdered By: Sammie Gonzalez on 08-29-2024 Glucose [Mass/Vol] 111 mg/dL High 70-100 [facility] Comment on above: ADA recommended refe rence rangeRandom Glucose Reference Range is dependent on time and content of last meal. Glucose of more than 200 mg/dL in a nonstressed, ambulatory subject supports the diagnosis of Diabetes Mellitus. Order Comment: PIPER SANTOS. JKW Result Comment: [place] om Glucose Reference Range is dependent on time and content of last meal. Glucose of more than 200 mg/dL in a nonstressed, ambulatory subject supports the diagnosis of Diabetes Mellitus. ADA recommended reference range Performed By: #### V [id number], TSH3, A1C WTH eA, DIFF CBC, [id number], LIPID, FE, CMP, T3F, T4T #### [facility] [address] #### INSULIN #### [facility] , Glucose mean value [Mass/vol ume] in Blood Estimated from glycated hemoglobinOrdered By: Sammie Gonzalez on 05-12-2024 Average glucose Estimated from glycated hemoglobin (Bld) [Mass/Vol] 114 mg/dL [facility] Hematocrit [Volume Fraction] of Blood by Automated countOrdered By: Sammie Gonzalez on 05-12-2024 Hematocrit (Bld) [Volume fraction] 39.1 % Normal 34.0-46.4 [facility] Comment on above: Order Comment: PIPER SANTOS. JKW Performed By: #### V [id number], TSH3, A1C WTH eA, DIFF CBC, [id number], LIPID, FE, CMP, T3F, T4T ####[facility] [id number] [address]#### INSULIN ####[facility] , Hemoglobin A1c percentageOrd ered By: Sammie Gonzalez on 05-12-2024 HbA1c (Bld) [Mass fraction] 5.6 % Normal 4.3-5.6 [facility] Comment on above: Increased risk for d iabetes: 5.7 - 6.4diabetes: >6.4glycemic control for adults with diabetes: <7.0 Order Comment: FASTI NG. JKW Result Comment: Incr eased risk for diabetes: 5.7 - 6.4 diabetes: >6.4 glycemic control for adults with diabetes: <7.0 Performed By: #### V [id number], TSH3, A1C WTH eA, DIFF CBC, [id number], LIPID, FE, CMP, T3F, T4T #### [address] #### INSULIN #### [facility] , Hemoglobin [Mass/volume] in BloodOrdered By: Sammie Gonzalez on 05-12-2024 Hemoglobin (Bld) [Mass/Vol] 12.9 g/dL Normal 11.8-15.4 [facility] Comment on above: Order Comment: FASTI NG. JKW Performed By: #### V [id number], TSH3, A1C WTH eA, DIFF CBC, [id number], LIPID, FE, CMP, T3F, T4T ####[address]#### INSULIN ####[facility] , Insulinon 05-12-2024 Insulin 38.1 u[iU]/mL High 2.6-24.9 [facility] Comment on above: Order Comment: FASTI NG. JKW Result Comment: Perf ormed at: [facility] [address] [id number] [facility] Director: Maxim Daniel PhD, Phone: [phone] PERFORMED BY: [place] [address] PATHOLOGIST FOLDED CLOTH TAPER MONIK SILVESTRE M.D. Performed By: #### V [id number], TSH3, A1C WTH eA, DIFF CBC, [id number], LIPID, FE, CMP, T3F, T4T ####[address]#### INSULIN ####[facility] , Iron [Mass/volume] in Serum or PlasmaOrdered By: Sammie Gonzalez on 05-12-2024 Iron [Mass/Vol] 80 ug/dL Normal 50-212 [facility] Comment on above: Order Comment: FASTI NG. JKW Performed By: #### V [id number], TSH3, A1C WTH eA, DIFF CBC, [id number], LIPID, FE, CMP, T3F, T4T ####[facility]#### INSULIN ####[facility] , Leukocytes [#/volume] correc jana for nucleated erythrocytes in Blood by Automated counOrdered By: Sammie Gonzalez on 05-12-2024 WBC corrected for nucl RBC Auto (Bld) [#/Vol] 11.8 10*3/uL High 3.8-11.6 [facility] Leukocytes [#/volume] in Blo od by Automated countOrdered By: Sammie Gonzalez on 05-12-2024 WBC (Bld) [#/Vol] 11.8 10*3/uL High 3.8-11.6 [facility] Comment on above: Order Comment: FASTI NG. JKW Performed By: #### V [id number], TSH3, A1C WTH eA, DIFF CBC, [id number], LIPID, FE, CMP, T3F, T4T ####[place] [address] [address]#### INSULIN ####[facility] , Lipid Panelon 05-12-2024 LDL Cholesterol,Calculated 76 mg/dL Normal 0-100 [facility] Comment on above: Order Comment: FASTI NG. JKW Result Comment: LDL ATP III CLASSIFICATION LDL less than 100 mg/dL Optimal LDL 100-129 mg/dL Near or above optimal LDL 130-159 mg/dL Borderline high LDL 160-189 mg/dL High LDL greater than 189 mg/dL Very high Performed By: #### V [id number], TSH3, A1C WTH eA, DIFF CBC, [id number], LIPID, FE, CMP, T3F, T4T ####[facility] [place] [address] [place]#### INSULIN ####[facility] , Triglyceride w/Reflex 146 mg/dL Normal 0-149 [facility] Comment on above: Order Comment: FASTI NG. JKW Result Comment: TRIG ATP III CLASSIFICATION TRIG less than 150 mg/dL Normal TRIG 150-199 mg/dL Borderline high TRIG 200-500 mg/dL High TRIG greater than 500 mg/dL Very high Standard traceable to the Center for Disease Conrtrol and Prevention (CDC) test method. Performed By: #### V [id number], TSH3, A1C WTH eA, DIFF CBC, [id number], LIPID, FE, CMP, T3F, T4T ####[address]#### INSULIN ####[facility] , VLDL CHOLESTEROL 29 mg/dL Normal [facility] Comment on above: Order Comment: FASTI NG. JKW Performed By: #### V [id number], TSH3, A1C WTH eA, DIFF CBC, [id number], LIPID, FE, CMP, T3F, T4T ####[address]#### INSULIN ####[facility] , Lymphocytes Auto (Bld) [#/Vo l]Ordered By: Sammie Gonzalez on 05-12-2024 Lymphocytes (Bld) [#/Vol] N/A [facility] Lymphocytes/100 WBC Auto (Bl d)Ordered By: Sammie Gonzalez on 05-12-2024 Lymphocytes/100 WBC (Bld) N/A [facility] Lymphocytes/100 leukocytes i n Blood by Manual countOrdered By: Sammie Gonzalez on 05-12-2024 Lymphocytes/100 WBC (Bld) 28 % Normal 18-42 [facility] Comment on above: Order Comment: FASTI NG. JKW Performed By: #### V [id number], TSH3, A1C WTH eA, DIFF CBC, [id number], LIPID, FE, CMP, T3F, T4T ####[place] [address] [place]#### INSULIN ####[facility] , MCH [Entitic mass] by Automa jana countOrdered By: Sammie Gonzalez on 05-12-2024 MCH (RBC) [Entitic mass] 29.9 pg Normal 24.7-34.3 [facility] Comment on above: Order Comment: FASTI NG. JKW Performed By: #### V [id number], TSH3, A1C WTH eA, DIFF CBC, [id number], LIPID, FE, CMP, T3F, T4T ####[address]#### INSULIN ####[facility] , MCHC Auto (RBC) [Mass/Vol]Or dered By: Sammie Gonzalez on 05-12-2024 MCHC (RBC) [Mass/Vol] 33.0 g/dL 32.0-35.0 [facility] MCV [Entitic volume] by Auto mated countOrdered By: Sammie Gonzalez on 05-12-2024 MCV (RBC) [Entitic vol] 90.8 fL Normal 80-100 [facility] Comment on above: Order Comment: FASTI NG. JKW Performed By: #### V [id number], TSH3, A1C WTH eA, DIFF CBC, [id number], LIPID, FE, CMP, T3F, T4T ####[address]#### INSULIN ####[facility] , Manual blood segmented neutr ophils/100 leukocytesOrdered By: Sammie Gonzalez on 05-12-2024 Segmented neutrophils/100 WBC (Bld) 54 % Normal 50-70 [facility] Comment on above: Order Comment: FASTI NG. JKW Performed By: #### V [id number], TSH3, A1C WTH eA, DIFF CBC, [id number], LIPID, FE, CMP, T3F, T4T ####[address]#### INSULIN ####[facility] , Metamyelocytes/100 WBC Manua l cnt (Bld)Ordered By: Sammie Gonzalez on 05-12-2024 Metamyelocytes/100 WBC (Bld) 2 % High 0-0 [facility] Microcytes LM Ql (Bld)Ordere d By: Sammie Gonzalez on 05-12-2024 Microcytes Ql (Bld) Slight [facility] Monocytes Auto (Bld) [#/Vol] Ordered By: Sammie Gonzalez on 05-12-2024 Monocytes (Bld) [#/Vol] N/A [facility] Monocytes/100 WBC Auto (Bld) Ordered By: Sammie Gonzalez on 05-12-2024 Monocytes/100 WBC (Bld) N/A [facility] Monocytes/100 leukocytes in Blood by Manual countOrdered By: Sammie Gonzalez on 05-12-2024 Monocytes/100 WBC (Bld) 12 % High 2-11 [facility] Comment on above: Order Comment: PIPER SANTOS. JKW Performed By: #### V [id number], TSH3, A1C WTH eA, DIFF CBC, [id number], LIPID, FE, CMP, T3F, T4T ####[facility] Ate[address]#### INSULIN ####[facility] , Neutrophils Auto (Bld) [#/Vo l]Ordered By: Sammie Gonzalez on 05-12-2024 Neutrophils (Bld) [#/Vol] N/A [facility] Neutrophils/100 WBC Auto (Bl d)Ordered By: Sammie Gonzalez on 05-12-2024 Neutrophils/100 WBC (Bld) N/A [facility] No Panel InformationOrdered By: Sammie Gonzalez on 05-12-2024 Estimated GFR (CKD-EPI) > 60.0 mL/Min [facility] Creatinine Clearance (Chem N/A [facility] Nucleated erythrocytes [Pres ence] in Blood by Automated countOrdered By: Sammie Gonzalez on 05-12-2024 Nucleated RBC Auto Ql (Bld) N/A [facility] Peripheral white blood cell differential % bands, microscopic examOrdered By: Sammie Gonzalez on 05-12-2024 Band form neutrophils/100 WBC (Bld) 1 % Normal 0-5 [facility] Comment on above: Order Comment: MABELI DANIELLE. JKW Performed By: #### V [id number], TSH3, A1C WTH eA, DIFF CBC, [id number], LIPID, FE, CMP, T3F, T4T ####[address]#### INSULIN ####[facility] , Platelet adequacy [Presence] in Blood by Light microscopyOrdered By: Sammie Gonzalez on 05-12-2024 Platelets LM Ql (Bld) Normal Normal [facility] Platelet mean volume [Entiti c volume] in Blood by Automated countOrdered By: Sammie Gonzalez on 05-12-2024 Platelet mean volume (Bld) [Entitic vol] 8.1 fL Normal 6.3-10.7 [facility] Comment on above: Order Comment: PIPER SANTOS. JKW Performed By: #### V [id number], TSH3, A1C WTH eA, DIFF CBC, [id number], LIPID, FE, CMP, T3F, T4T ####[address]#### INSULIN ####[facility] , Platelet morphology finding [Identifier] in BloodOrdered By: Sammie Gonzalez on 05-12-2024 Platelet morphology finding Nom (Bld) Normal Normal [facility] Platelets [#/volume] in Bloo d by Automated countOrdered By: Sammie Gonzalez on 05-12-2024 Platelets (Bld) [#/Vol] 392 10*3/uL Normal 150-450 [facility] Comment on above: Order Comment: FASTI DANIELLE. JKW Performed By: #### V [id number], TSH3, A1C WTH eA, DIFF CBC, [id number], LIPID, FE, CMP, T3F, T4T ####[address]#### INSULIN ####[facility] , Potassium [Moles/volume] in Serum or PlasmaOrdered By: Sammie Gonzalez on 05-12-2024 Potassium [Moles/Vol] 4.1 mmol/L Normal 3.5-5.1 [facility] Comment on above: Order Comment: FASTI NG. JKW Performed By: #### V [id number], TSH3, A1C WTH eA, DIFF CBC, [id number], LIPID, FE, CMP, T3F, T4T #### [facility] [address] [place] [address] #### INSULIN #### [facility] , Protein [Mass/volume] in Ser um or PlasmaOrdered By: Sammie Gonzalez on 05-12-2024 Protein [Mass/Vol] 6.1 g/dL Low 6.4-8.9 [facility] Comment on above: Order Comment: FASTI NG. JKW Performed By: #### V [id number], TSH3, A1C WTH eA, DIFF CBC, [id number], LIPID, FE, CMP, T3F, T4T #### [facility] [address] [place] [address] [place] #### INSULIN #### [facility] , RBC morphologyOrdered By: Do erik Gonzalez on 05-12-2024 RBC morphology finding Nom (Bld) N/A [facility] Serum globulin measurement b y calculation (mass/volume)Ordered By: Sammie Gonzalez on 05-12-2024 Globulin (S) [Mass/Vol] 2.0 g/dL Normal [facility] Comment on above: Order Comment: FASTI NG. JKW Performed By: #### V [id number], TSH3, A1C WTH eA, DIFF CBC, [id number], LIPID, FE, CMP, T3F, T4T #### [facility] [address] [place] [address] [place] #### INSULIN #### [facility] , Serum or plasma albumin/glob ulin mass ratioOrdered By: Sammie Gonzalez on 05-12-2024 Albumin/Globulin [Mass ratio] 2.1 {ratio} Normal [facility] Comment on above: Order Comment: MABELI NG. JKW Performed By: #### V [id number], TSH3, A1C WTH eA, DIFF CBC, [id number], LIPID, FE, CMP, T3F, T4T #### [facility] [address] #### INSULIN #### [facility] , Serum or plasma anion gap de terminationOrdered By: Sammie Gonzalez on 05-12-2024 Anion gap [Moles/Vol] 12.1 mmol/L Normal 6.0-15.0 [facility] Comment on above: Order Comment: PIPER NG. JKW Performed By: #### V [id number], TSH3, A1C WTH eA, DIFF CBC, [id number], LIPID, FE, CMP, T3F, T4T #### [facility] [address] #### INSULIN #### [facility] , Serum or plasma high density lipoprotein (HDL) cholesterol measurementOrdered By: Sammie Gonzalez on 05-12-2024 Cholesterol in HDL [Mass/Vol] 86 mg/dL Normal 23-92 [facility] Comment on above: HDL CHOL ATP-III CLA SSIFICATION Cardiovascular RiskHDL > or equal to 60 mg/dL LOWHDL < 40 mg/dL HIGH Order Comment: FASTI NG. JKW Result Comment: HDL CHOL ATP-III CLASSIFICATION Cardiovascular Risk HDL > or equal to 60 mg/dL LOW HDL < 40 mg/dL HIGH Performed By: #### V [id number], TSH3, A1C WTH eA, DIFF CBC, [id number], LIPID, FE, CMP, T3F, T4T ####[facility] Awp[address] [place] [address] [place]#### INSULIN ####[facility] , Serum or plasma total choles terol/high density lipoprotein (HDL) cholesterol mass ratOrdered By: Sammie Gonzalez on 05-12-2024 Cholesterol.total/Tali sterol in HDL [Mass ratio] 2.2 {ratio} Normal <5.0 [facility] Comment on above: Order Comment: FASTI NG. JKW Performed By: #### V [id number], TSH3, A1C WTH eA, DIFF CBC, [id number], LIPID, FE, CMP, T3F, T4T ####[facility] [id number]#### INSULIN ####[facility] , Sodium [Moles/volume] in Ser um or PlasmaOrdered By: Sammie Gonzalez on 05-12-2024 Sodium [Moles/Vol] 136 mmol/L Normal 136-145 [facility] Comment on above: Order Comment: FASTI NG. JKW Performed By: #### V [id number], TSH3, A1C WTH eA, DIFF CBC, [id number], LIPID, FE, CMP, T3F, T4T #### [facility] [address] #### INSULIN #### [facility] , Thyrotropin [Units/volume] i n Serum or PlasmaOrdered By: Sammie Gonzalez on 05-12-2024 TSH Qn 6.32 m[IU]/L High 0.45-5.33 [facility] Comment on above: Order Comment: FASTI NG. JKW Performed By: #### V [id number], TSH3, A1C WTH eA, DIFF CBC, [id number], LIPID, FE, CMP, T3F, T4T ####[place] [address] [place]#### INSULIN ####[facility] , Thyroxine (T4) [Mass/volume] in Serum or PlasmaOrdered By: Sammie Gonzalez on 05-12-2024 T4 [Mass/Vol] 11.59 ug/dL Normal 5.39-11.82 [facility] Comment on above: Order Comment: FASTI NG. JKW Performed By: #### V [id number], TSH3, A1C WTH eA, DIFF CBC, [id number], LIPID, FE, CMP, T3F, T4T ####[facility] [id number] [address]#### INSULIN ####[facility] , Triglyceride [Mass/volume] i n Serum or PlasmaOrdered By: Sammie Gonzalez on 05-12-2024 Triglyceride [Mass/Vol] 146 mg/dL 0-149 [facility] Comment on above: TRIG ATP III CLASSIF ICATIONTRIG less than 150 mg/dL NormalTRIG 150-199 mg/dL Borderline highTRIG 200-500 mg/dL High TRIG greater than 500 mg/dL Very highStandard traceable to the Center for Disease Conrtrol and Prevention (CDC) test method. Triiodothyronine (T3) Freeon 05-12-2024 Triiodothyronine (T3) Free 3.61 pg/mL Normal 2.50-3.90 [facility] Comment on above: Order Comment: PIPER ROBLERO Result Comment: PERF ORMED BY: [place] [address] PATHOLOGIST FOLDED CLOTH TAPER MONIK SILVESTRE M.D. Performed By: #### V [id number], TSH3, A1C WTH eA, DIFF CBC, [id number], LIPID, FE, CMP, T3F, T4T #### [facility] [address] #### INSULIN #### [facility] , Triiodothyronine (T3) Free [ Mass/volume] in Serum or PlasmaOrdered By: Sammie Gonzalez on 05-12-2024 Free T3 [Mass/Vol] 3.61 pg/mL 2.50-3.90 [facility] Urea nitrogen [Mass/volume] in Serum or PlasmaOrdered By: Sammie Gonzalez on 05-12-2024 Urea nitrogen [Mass/Vol] 20 mg/dL Normal 7-25 [facility] Comment on above: Order Comment: PPIER ROBLERO Performed By: #### V [id number], TSH3, A1C WTH eA, DIFF CBC, [id number], LIPID, FE, CMP, T3F, T4T #### [facility] [address] #### INSULIN #### [facility] , Vit. B12/Folate Profileon Folate 7.8 ng/mL Normal >5.9 [facility] Comment on above: Order Comment: PIPER STEWARTW Result Comment: Jonna te reference range: >5.9 ng/ml The WHO technical consultation on folate and vitamin b12 deficiencies has determined that folate concentrations less than 4 ng/ml are considered deficient. Performed By: #### V [id number], TSH3, A1C WTH eA, DIFF CBC, [id number], LIPID, FE, CMP, T3F, T4T ####[facility]#### INSULIN ####[facility] , Vitamin B12 ser/plasOrdered By: Sammie Gonzalez on 05-12-2024 Cobalamin (Vitamin B12) [Mass/Vol] 306 pg/mL Normal 180-914 [facility] Comment on above: Order Comment: PIPER STEWARTW Performed By: #### V [id number], TSH3, A1C WTH eA, DIFF CBC, [id number], LIPID, FE, CMP, T3F, T4T ####[facility]#### INSULIN ####[facility] , Vitamin D 25 Hydroxy Totalon 05-12-2024 Vitamin D 25 Hydroxy Total 39.9 ng/mL Normal 30-100 [facility] Comment on above: Order Comment: PIPER STEWARTW Result Comment: THERESE MIN D STATUS 25(OH)VITAMIN D RANGE (ng/mL) Deficient <20 Insufficient 20 to <30 Sufficient 30 to 100 Reference: Nain MF,Anum NC, Brynn APARICIO, et al. Evaluation,treatment, and prevention of vitamin D deficiency; an Endocrine Society clinical practice guideline. JCEM. 2011 Mar; 96(7):1911-30. PERFORMED BY: [facility] [address] [place] [address] PATHOLOGIST FOLDED CLOTH TAPER MONIK SILVESTRE M.D. Performed By: #### V [id number], TSH3, A1C WTH eA, DIFF CBC, [id number], LIPID, FE, CMP, T3F, T4T ####[facility] [address] [place] [id number] [facility]#### INSULIN ####[facility] , Vitamin D+Metabolites [Mass/ volume] in Serum or PlasmaOrdered By: Sammie Gonzalez on 05-12-2024 Vitamin D+Metabolites [Mass/Vol] 39.9 ng/mL 30-100 [facility] Comment on above: VITAMIN D STATUS 25( [place])VITAMIN D RANGE (ng/mL) Deficient <20 Insufficient 20 to <30Sufficient 30 to 100Reference: Nain DANIELLE,Anum LAURA, Brynn APARICIO, et al. Evaluation,treatment, and prevention of vitamin D deficiency; an Endocrine Society clinical practice guideline. JCEM. 2010; 96(7):1911-30. Kathy 03-08-2024 [facility] Telephone ([facility]) KOURTNEY NOVAK ([id number]) 1975 F Date Time Provider Department 03/08/24 ERIK PINEDA [facility] During your visit today, we recorded the following information about you: Brain Ruth 03/08/2024 1:49 PM Signed General Call Caller : Moira harrison at [facility] Contact Reason for Call : Nurse would like to confirm that pt is allowed to receive steroid injection prior to surgery-80mg of kenalog Patient requesting return call ? Yes Mario Alberto Phillips RN 03/08/2024 2:29 PM Signed Spoke with nurse Moira. We discussed that the patient's epidural steroid injection on 03/14/2024 for her neck pain (C7/T1) is far out from her surgery for the craniotomy with Dr Erik Pineda (04/04/24). Mario Alberto Phillips RN, Broom Man Mario Alberto Phillips RN 03/08/2024 2:42 PM Addendum ADDENDUM: March 08, 2024 2:39 PM [facility] Visit on 02/02/2024 including the details for the patient's surgery was faxed to Moira DONOVAN ( [facility]) . Mario Alberto Phillips RN, Broom Man Allergies As of Date: 03/08/2024 (No Known Allergies) Date Reviewed: 02/05/2024 Reviewed by: Rachele Fenton APRN.REBAR BENDER - Fully Assessed Reason for Visit: epidural steroid injection [Other] Prescriptions as of 03/08/2024 - nortriptyline (PAMELOR) 25 mg capsule Take 1 capsule by mouth daily at bedtime. - methocarbamol (ROBAXIN) 500 mg tablet Take 1 tablet by mouth two times a day as needed. - etodolac (LODINE) 400 mg tablet One tab po bid prn - hydrOXYchloroQUINE (PLAQUENIL) 200 mg tablet take 1 tablet by mouth twice daily - predniSONE (DELTASONE) 5 mg tablet 1-2 tabs po qd - DULoxetine (CYMBALTA) 60 mg capsule Take 1 capsule by mouth once daily. - vilazodone (VIIBRYD) 40 mg tablet Take 40 mg by mouth once daily. - benzonatate (TESSALON PERLES ORAL) - REXULTI 2 mg tablet Take 2 mg by mouth once daily. - budesonide (PULMICORT) 1 mg/2 mL nebulizer solution INHALE 1 (ONE) vial via NEBULIZER ONCE DAILY - dapagliflozin (FARXIGA) 5 mg tablet - DEXILANT 60 mg CpDM Take 1 capsule by mouth twice daily. - doxepin capsule 10 mg - glycopyrrolate (ROBINUL) 1 mg tablet Take 2 mg by mouth twice daily. - ipratropium-albuterol (DUONEB) 0.5 mg-3 mg(2.5 mg base)/3 mL nebu - lamoTRIgine (LAMICTAL) 200 mg tablet TAKE 3 TABLETS EVERY DAY - AMITIZA 24 mcg capsule Take 24 mcg by mouth twice daily. - metFORMIN (GLUCOPHAGE) 500 mg tablet - pioglitazone (ACTOS) 15 mg tablet - simvastatin (ZOCOR) 20 mg tablet Take 20 mg by mouth once daily. - sucralfate (CARAFATE) 1 gram tablet Problem List As Of Date 03/08/2024 Noted Resolved Intracranial meningioma (HCC) [D32.0] 06/01/2023 Chronic tension-type headache, intractable [G44*06/01/2023 Encounter Status:Closed by MARIO ALBERTO PHILLIPS on 03/08/24 [facility] US thyroidon 02-15-2024 thyroid [facility] [place] [address] Ultrasound Report Signed Patient: Kourtney Novak MR#: [id number] : 1975 Acct:[id number] Age/Sex: 48 / F ADM Date: 02/15/24 Loc: Room: Type: [facility] Attending Dr: Sammie Gonzalez MD Ordering Provider: Sammie Gonzalez MD Date of Service: 02/15/24 US/US thyroid: E04.1 Copies to: Sammie Gonzalez MD Thyroid Ultrasound HISTORY: 14 mm LEFT thyroid nodule seen with MRI. COMPARISON: None The RIGHT lobe measures 4.0 x 1.3 x 1.4cm. LEFT lobe measures 3.6 x 1.6 x 1.6 cm. Isthmus has an AP dimension of 0.1cm. 11 mm LEFT hypoechoic nodule present. Peripheral vascularity present.. No microcalcifications identified. Symmetric blood flow of the thyroid gland identified. US/US thyroid IMPRESSION: 11 mm predominantly solid LEFT thyroid nodule. One-year follow-up assessment recommended. Impression dictated by: George Gray M.D.02/15/2024 6:25 PM Dictation Location: [place] [address] Tech: Beti Young Transcribed By: GRACIE 02/15/24 7423 Dictated By: George Gray DO 02/15/241821 Signed By: 02/15/241824 Normal [facility] KOURTNEY NOVAK ([id number]) 1975 F Date Time Provider Department 02/10/24 RACHELE FENTON [facility]MNS2 During your visit today, we recorded the following information about you: Gifty Dash 02/10/2024 3:20 PM Signed Prior Authorization for Medications Requested by ([employer]), Pharmacy, Patient Call, Fax) : [facility] Name: [facility] Phone # : [phone] Name of Medication : Robaxin Dose : 500 mg Tablet If renewal, auth date expiration: NA Prescribing Provider: Eliceo Last OV: 02/05/2024 with Eliceo Insurance Provider : Medicare / [employer]. Is insurance card scanned in, including Rx info? Medicare card scanned - no RX information [facility]: NICOLAS E-PA? Yes Allergies As of Date: 02/10/2024 (No Known Allergies) Date Reviewed: 02/05/2024 Reviewed by: Rachele Fenton APRN.REBAR BENDER - Fully Assessed Reason for Visit: Insurance Authorization [[id number]] Robaxin [place] - Medicare / [employer]. [Other] Prescriptions as of 03/14/2024 - nortriptyline (PAMELOR) 25 mg capsule Take 1 capsule by mouth daily at bedtime. - methocarbamol (ROBAXIN) 500 mg tablet Take 1 tablet by mouth two times a day as needed. - etodolac (LODINE) 400 mg tablet One tab po bid prn - hydrOXYchloroQUINE (PLAQUENIL) 200 mg tablet take 1 tablet by mouth twice daily - predniSONE (DELTASONE) 5 mg tablet 1-2 tabs po qd - DULoxetine (CYMBALTA) 60 mg capsule Take 1 capsule by mouth once daily. - vilazodone (VIIBRYD) 40 mg tablet Take 40 mg by mouth once daily. - benzonatate (TESSALON PERLES ORAL) - REXULTI 2 mg tablet Take 2 mg by mouth once daily. - budesonide (PULMICORT) 1 mg/2 mL nebulizer solution INHALE 1 (ONE) vial via NEBULIZER ONCE DAILY - dapagliflozin (FARXIGA) 5 mg tablet - DEXILANT 60 mg CpDM Take 1 capsule by mouth twice daily. - doxepin capsule 10 mg - glycopyrrolate (ROBINUL) 1 mg tablet Take 2 mg by mouth twice daily. - ipratropium-albuterol (DUONEB) 0.5 mg-3 mg(2.5 mg base)/3 mL nebu - lamoTRIgine (LAMICTAL) 200 mg tablet TAKE 3 TABLETS EVERY DAY - AMITIZA 24 mcg capsule Take 24 mcg by mouth twice daily. - metFORMIN (GLUCOPHAGE) 500 mg tablet - pioglitazone (ACTOS) 15 mg tablet - simvastatin (ZOCOR) 20 mg tablet Take 20 mg by mouth once daily. - sucralfate (CARAFATE) 1 gram tablet Problem List As Of Date 02/10/2024 Noted Resolved Intracranial meningioma (HCC) [D32.0] 06/01/2023 Chronic tension-type headache, intractable [G44*06/01/2023 Encounter Status:Closed by TERRI GARCIA on 03/14/24 [facility] MR cervical spine wo conon 0 02-09-2024 MR cervical spine wo con [facility] [place] [address] MRI Report Signed Patient: Kourtney Novak MR#: [id number] : 1975 Acct:[id number] Age/Sex: 48 / F ADM Date: 02/09/24 Loc: [facility] Room: Type: [facility] Attending Dr: Sammie Gonzalez MD Copies to: Sammie Gonzalez MD Ordering Provider: Sammie Gonzalez MD Date of Service: 02/09/24 MR/MR cervical spine wo con: R20.2 MR cervical spine wo con 02/09/2024 8:53 AM SIGNS AND SYMPTOMS: Neck pain radiating to legs left greater than right PROTOCOL: Multiplanar multisequence MR images of the cervical spine were obtained without IV contrast COMPARISON: None. FINDINGS: The bones of the cervical spine are in anatomic alignment. There is preservation of vertebral body heights. There is mild to moderate disc height loss at C5-C6 and C6-C7. This is new compared to the prior exam. The marrow signal is within normal limits. The cord is normal in signal. No epidural or paraspinous fluid collection is appreciated. The visualized paraspinous soft tissues are within normal limits. The prevertebral soft tissues are within normal limits. There is a 14 mm T2 hyperintense nodule within the left thyroid lobe which is unchanged when compared to the 2015 study. At C2-C3: There is a normal disc, central canal, and neural foramen. At C3-C4: There is a broad-based disc bulge with facet hypertrophy. There is moderate right neural foraminal narrowing with mild spinal canal narrowing. At C4-C5: Uncovertebral joint spurring is noted contributing to moderate bilateral neural foraminal narrowing. There is a broad-based disc bulge with mild spinal canal narrowing. At C5-C6: There is a broad-based disc bulge with facet hypertrophy and uncovertebral joint spurring right greater than left. There is severe right and moderate left neural foraminal narrowing with moderate spinal canal stenosis. At C6-C7: There is a circumferential disc bulge with facet and operative joint degenerative change. There is moderate to severe bilateral neural foraminal narrowing with moderate spinal canal narrowing. At C7-T1: There is a normal disc, central canal, and neural foramen. MR/MR cervical spine wo con IMPRESSION: At C5-C6: There is a broad-based disc bulge with facet hypertrophy and uncovertebral joint spurring right greater than left. There is severe right and moderate left neural foraminal narrowing with moderate spinal canal stenosis. At C6-C7: There is a circumferential disc bulge with facet and operative joint degenerative change. There is moderate to severe bilateral neural foraminal narrowing with moderate spinal canal narro wing. Additional but lesser degrees of degenerative changes noted, as above. Impression dictated by: Perry Milton M.D.02/09/2024 1:27 PM Dictation Location: [place] [address] Transcribed By: GRACIE 02/09/24 1327 Dictated By: Perry Milton II, MD 02/09/24 1320 Signed By: 02/09/24 1327 Normal [facility] MR lumbar spine wo conon MR lumbar spine wo con [place] [address] MRI Report Signed Patient: Kourtney Novak MR#: [id number] : 1975 Acct:[id number] Age/Sex: 48 / F ADM Date: 02/09/24 Loc: [facility] Room: Type: [facility] Attending Dr: Sammie Gonzalez MD Copies to: Sammie Gonzalez MD Ordering Provider: Sammie Gonzalez MD Date of Service: 02/09/24 MR/MR lumbar spine wo con: R20.2 MR lumbar spine wo con 02/09/2024 8:53 AM SIGNS AND SYMPTOMS: Back pain radiating to legs left greater than right PROTOCOL: Multiplanar multisequence MR images of the lumbar spine were obtained without IV contrast COMPARISON: 11/26/2013 FINDINGS: The bones of the lumbar spine are in anatomic alignment. There is preservation of vertebral body heights. There is moderate disc height loss at L5-S1 with Modic type II fatty endplate degenerative change. The marrow signal is within normal limits. The conus terminates at the superior endplate of the L2 vertebral body level. No epidural or paraspinous fluid collection is appreciated. At T12-L1: There is a normal disc, central canal, and neural foramen. At L1-L2: There is a normal disc, central canal, and neural foramen. At L2-L3: There is a normal disc, central canal, and neural foramen. At L3-L4: There is a normal disc, central canal, and neural foramen. At L4-L5: There is a normal disc, central canal, and neural foramen. At L5-S1: There is a circumferential disc bulge with facet hypertrophy. There is mild spinal canal stenosis with mild to moderate right and moderate to severe left neural foraminal narrowing. This is slightly worse when compared to the prior exam. MR/MR lumbar spine wo con IMPRESSION: At L5-S1: There is a circumferential disc bulge with facet hypertrophy. There is mild spinal canal stenosis with mild to moderate right and moderate to severe left neural foraminal narrowing. This is slightly worse when compared to the prior exam. No significant spinal canal or neural foraminal narrowing is noted, otherwise. Impression dictated by: Perry Milton M.D.02/09/2024 1:35 PM Dictation Location: [place] [address] Transcribed By: GRACIE 02/09/24 1335 Dictated By: Perry Milton II, MD 02/09/24 1331 Signed By: 02/09/24 1335 Normal [facility] XR pre/post mri xrayon 02-08 XR pre/post mri xray [facility] [place] [address] [place] [address] XRay Report Signed Patient: Kourtney Novak MR#: [id number] : 1975 Acct:[id number] Age/Sex: 48 / F ADM Date: 02/09/24 Loc: [facility] Room: Type: [facility] Attending Dr: Sammie Gonzalez MD Copies to: Sammie Gonzalez MD Ordering Provider: Sammie Gonzalez MD Date of Service: 02/09/24 XR/XR pre/post mri xray: LUMBAR AND CERVICAL XR pre/post mri xray 02/09/2024 8:53 AM SIGNS AND SYMPTOMS: Neck and back pain with bilateral lower extremity radiculopathy. PROTOCOLS: Lateral and bilateral oblique radiographs of the cervical spine. Frontal and lateral graphs of the lumbar spine. COMPARISON: None FINDINGS: Cervical spine: There is straightening of the normal cervical lordosis. The bones are in anatomic alignment otherwise. There is mild/moderate disc height loss with anterior osteophyte formation and uncoverte bral joint spurring at C5-C6 and C6-7 contributing to neural foraminal stenosis. There is preservation of the vertebral body heights and intervertebral disc spaces, otherwise. There is no fracture or destructive lesion. Lumbar spine: There is a dextro convex curvature of the lumbar spine.. There is no fracture or destructive lesion. The disk spaces are well-preserved. The sacrum and sacroiliac joints are normal. XR/XR pre/post mri xray IMPRESSION: Cervical spine: No fracture or subluxation. Straightening of the normal cervical lordosis is noted. This may be positional or secondary muscle spasm. Ebuk-ke-spxhuyxn degenerative changes are noted at C5-C6 and C6-C7 as above. Lumbar spine: There is a dextro convex curvature. No fracture or subluxation. Impression dictated by: Perry Milton M.D.02/09/2024 1:47 PM Dictation Location: [facility]--07 Transcribed By: GRACIE 02/09/24 1347 Dictated By: Perry Milton II, MD 02/09/24 1343 Signed By: 02/09/24 134 Normal [facility] Kathy 02-02-2024 CNPN Telephone (NSCAMN) KOURTNEY NOVAK ([id number]) 1975 F Date Time Provider Department 02/02/24 MARIO ALBERTO PHILLIPS [facility] During your visit today, we recorded the following information about you: Mario Alberto Phillips RN 02/02/2024 10:24 AM Signed Called the patient confirming virtual appointment today at [address] Vanessa Ugarte ( Skull base fellow from Dr Pineda team). Allergies As of Date: 02/02/2024 (No Known Allergies) Date Reviewed: 09/28/2023 Reviewed by: Mcihelle Thompson MA - Fully Assessed Reason for Visit: Appointment [186] Prescriptions as of 02/02/2024 - tiZANidine (ZANAFLEX) 4 mg tablet take 1 tablet by mouth every 8 hours as needed - etodolac (LODINE) 400 mg tablet One tab po bid prn - hydrOXYchloroQUINE (PLAQUENIL) 200 mg tablet take 1 tablet by mouth twice daily - predniSONE (DELTASONE) 5 mg tablet 1-2 tabs po qd - DULoxetine (CYMBALTA) 60 mg capsule Take 1 capsule by mouth once daily. - nortriptyline (PAMELOR) 25 mg capsule Take 1 capsule by mouth daily at bedtime. - vilazodone (VIIBRYD) 40 mg tablet Take 40 mg by mouth once daily. - benzonatate (TESSALON PERLES ORAL) - REXULTI 2 mg tablet Take 2 mg by mouth once daily. - budesonide (PULMICORT) 1 mg/2 mL nebulizer solution INHALE 1 (ONE) vial via NEBULIZER ONCE DAILY - dapagliflozin (FARXIGA) 5 mg tablet - DEXILANT 60 mg CpDM Take 1 capsule by mouth twice daily. - doxepin capsule 10 mg - glycopyrrolate (ROBINUL) 1 mg tablet Take 2 mg by mouth twice daily. - ipratropium-albuterol (DUONEB) 0.5 mg-3 mg(2.5 mg base)/3 mL nebu - lamoTRIgine (LAMICTAL) 200 mg tablet TAKE 3 TABLETS EVERY DAY - AMITIZA 24 mcg capsule Take 24 mcg by mouth twice daily. - metFORMIN (GLUCOPHAGE) 500 mg tablet - pioglitazone (ACTOS) 15 mg tablet - simvastatin (ZOCOR) 20 mg tablet Take 20 mg by mouth once daily. 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 TECHNIQUE: Serial axial images without IV contrast were obtained from the vertex to the foramen magnum. MQ: [id number] CT Radiation dose: Integrated Dose-Length Product (DLP) for this visit = mGy*cm CT Dose Reduction Employed: No dose reduction techniques were required COMPARISON: MRI dated 01/29/2024, outside MRI dated 05/06/2023. RESULT: Localizer images: No additional findings. Post-operative change: None. Acute change: No evidence of an acute infarct or other acute parenchymal process. Hemorrhage: No evidence of acute intracranial hemorrhage. ECASS hemorrhagic transformation score: Not Applicable Mass Lesion / Mass Effect: There is an expansile hyperostosis of the greater wing of RIGHT sphenoid bone and RIGHT posterior lateral orbital wall, suspicious for meningioma. Mild local mass effect on the RIGHT temporal pole without significant edema. No significant mass effect. Chronic change: None apparent. Parenchyma: There is no significant volume loss. The brain parenchyma is otherwise within normal limits for age. Ventricles: The ventricles are within normal limits of size and configuration for age. Paranasal sinuses and skull base: The visualized paranasal sinuses are grossly clear. The skull base and imaged soft tissues are unremarkable. IMPRESSION: Expansile hyperostosis of the greater wing of RIGHT sphenoid bone and posterior lateral RIGHT orbital wall consistent with a suspected diagnosis of meningioma. Mild local mass effect on the RIGHT anterior temporal pole without significant vasogenic edema. No overt soft tissue component identified in the orbit. Echocardiologist: [facility] Transcribe Date/Time: Jan 31 2024 3:33P Dictated by : NATIVIDAD PRIEST MD This examination was interpreted and the report reviewed and electronically signed by: NATIVIDAD PRIEST MD on Jan 31 2024 3:37PM EST [id number] Normal [facility] MRI SKULL BASE WO/W IVCONon 01-29-2024 MRI SKULL BASE WO/W IVCON * * *Final Report* * * DATE OF EXAM: Jan 29 2024 1:56PM [facility] 0319 - MRI SKULL BASE WO/W IVCON / PROCEDURE REASON: Benign neoplasm of meninges (HCC) * * * * Physician Interpretation * * * * EXAMINATION: MRI SKULL BASE WO/W IVCON CLINICAL HISTORY: Sphenoid wing meningioma. TECHNIQUE: Sagittal T1, high-resolution coronal and axial T1, fat-suppressed axial fast T2, and high-resolution, fat-suppressed, gadolinium enhanced axial VIBE with coronal planar reformats of the skull base. Contrast: 20 mL Dotarem IV COMPARISON: 05/06/2023 RESULT: Postop Changes: None. Acute Change: There is no evidence of an acute intracranial process. Brain Parenchyma: There is mild mass effect on the right temporal pole by the meningioma described in the skull base discussion below. The brain parenchyma is otherwise within normal limits of signal intensity and morphology. Orbits: Again noted is abnormal hypointensity in the marrow of the caudal aspect of the greater wing of the right sphenoid bone which marginally abuts the dorsal lateral margins of the right orbit there is no evidence of extension of the mass into the adjacent orbit. There is no evidence of a soft tissue mass otherwise within either orbit. Paranasal Sinuses: The paranasal sinuses, mastoid air cells and middle ear cavities are clear. Sella: The pituitary gland is within normal limits of size and signal intensity characteristics. No evidence of a suprasellar mass. The overlying hypothalamus and optic apparatus are normal in appearance. Cavernous Sinuses: The cavernous sinuses are normal in appearance. A normal flow void is noted in the carotid siphons suggesting patency by spin echo criteria. Vasculature: The major arterial and venous structures demonstrate a normal flow void, suggesting patency by spin echo criteria. No clear evidence of vascular compression of the cisternal segments of the cranial nerves. Skull Base: Again noted is a dural based extra-axial soft tissue mass along the greater wing of the right sphenoid bone which is heterogeneously hyperintense on FLAIR and T2 and demonstrates prominent heterogeneous enhancement following gadolinium administration compatible with a meningioma. Overall, the enhancing extra-axial mass measures approximately 0.8 x 1.7 x 1.5 cm in greatest AP, transverse, and CC dimensions, respectively. There is confluent contiguous abnormal hypointensity on T1 and T2 with localized expansion of the right sphenoid and subtle asymmetric heterogeneous enhancement with gadolinium suggesting this represents an intraosseous meningioma. Inferotemporal Fossa: There is no clear evidence of a contiguous soft tissue mass extending into the of the circuit judge or parapharyngeal spaces. The soft tissue planes of the, retropharyngeal, and prevertebral spaces are maintained. The visualized parotid glands are normal in appearance. Nasopharynx/Oropharyn x: The nasopharynx and oropharynx are normal in appearance. 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 Echocardiologist: GUANACO Transcribe Date/Time: Jan 31 2024 5:10P Dictated by : WESTLEY IYER MD This examination was interpreted and the report reviewed and electronically signed by: WESTLEY IYER MD on Jan 31 2024 5:28PM EST [id number] N [facility] KOURTNEY NOVAK ([id number]) 1975 F Date Time Provider Department 01/19/24 MARIO ALBERTO PHILLIPS [facility] During your visit today, we recorded the following information about you: Mario Alberto Phillips RN 01/19/2024 9:36 AM Signed Spoke with Ms Kourtney Novak today confirming surgery on 04/11/[address] Erik Pineda. Right middle sphenoid wing Preoperative appointments will be scheduled ~ 2 weeks prior to surgery date at a F facility closer to the patient's home. Mario Alberto Phillips RN, Broom Man Mario Alberto Phillips RN 01/19/2024 10:43 AM Signed Spoke with Kourtney again , after discussing surgery planning with Dr Vanessa Ugarte ( Skull base fellow from Dr Erik Pineda team). CT Brain Stereo and Skull Base MRI were ordered for surveillance and surgery planning. Patient will be scheduled for a virtual visit after the CT/MRI appointments on 01/29/2024 for results review and surgery discussion and consent. Both appointments were confirmed. Allergies As of Date: 01/19/2024 (No Known Allergies) Date Reviewed: 09/28/2023 Reviewed by: Michelle Thompson MA - Fully Assessed Reason for Visit: Schedule Surgery [1330] Cmt: Surgery Planning Prescriptions as of 01/19/2024 - iv contrast (will be provided with radiology test) MRI Skull Base Inject, intravenously, once for 1 dose. No IV access, insert saline lock prior to the beginning of sedation, infusion, injection of imaging exam. Discontinue saline lock post exam. If Pt. has a central line or IVAD, may access for administration according to line specific nursing protocol. Once exam is complete flush line and de-access according to line specific nursing protocol in the MR contrast administration guidelines link. - hydrOXYchloroQUINE (PLAQUENIL) 200 mg tablet take 1 tablet by mouth twice daily - predniSONE (DELTASONE) 5 mg tablet 1-2 tabs po qd - DULoxetine (CYMBALTA) 60 mg capsule Take 1 capsule by mouth once daily. - etodolac (LODINE) 400 mg tablet One tab po bid prn - nortriptyline (PAMELOR) 25 mg capsule Take 1 capsule by mouth daily at bedtime. - tiZANidine (ZANAFLEX) 4 mg tablet Take 1 tablet by mouth every 8 hours as needed. - vilazodone (VIIBRYD) 40 mg tablet Take 40 mg by mouth once daily. - benzonatate (TESSALON PERLES ORAL) - REXULTI 2 mg tablet Take 2 mg by mouth once daily. - budesonide (PULMICORT) 1 mg/2 mL nebulizer solution INHALE 1 (ONE) vial via NEBULIZER ONCE DAILY - dapagliflozin (FARXIGA) 5 mg tablet - DEXILANT 60 mg CpDM Take 1 capsule by mouth twice daily. - doxepin capsule 10 mg - glycopyrrolate (ROBINUL) 1 mg tablet Take 2 mg by mouth twice daily. - ipratropium-albuterol (DUONEB) 0.5 mg-3 mg(2.5 mg base)/3 mL nebu - lamoTRIgine (LAMICTAL) 200 mg tablet TAKE 3 TABLETS EVERY DAY - AMITIZA 24 mcg capsule Take 24 mcg by mouth twice daily. - metFORMIN (GLUCOPHAGE) 500 mg tablet - pioglitazone (ACTOS) 15 mg tablet - simvastatin (ZOCOR) 20 mg tablet Take 20 mg by mouth once daily. - sucralfate (CARAFATE) 1 gram tablet Problem List As Of Date 01/19/2024 Noted Resolved Intracranial meningioma (HCC) [D32.0] 06/01/2023 Chronic tension-type headache, intractable [G44*06/01/2023 Encounter Status:Closed by MARIO ALBERTO PHILLIPS on 01/19/24 Normal [facility] Alanine aminotransferase [En zymatic activity/volume] in Serum or PlasmaOrdered By: Zeinab Wood on 01-08-2024 ALT [Catalytic activity/Vol] 22 U/L Normal 7-52 [facility] Comment on above: Order Comment: PIPER FoleyKW Result Comment: PERF ORMED BY: [place] [address] PATHOLOGIST FOLDED CLOTH TAPER MONIK SILVESTRE M.D. Performed By: #### A ST, CREAT, ALT, CBC #### [facility] [address] [place] [address] Aspartate aminotransferase [ Enzymatic activity/volume] in Serum or PlasmaOrdered By: Zeinab Wood on 01-08-2024 AST [Catalytic activity/Vol] 16 U/L Normal 13-39 [facility] Comment on above: Order Comment: PIPER FoleyKW Performed By: #### A ST, CREAT, ALT, CBC #### [address] Automated basophil %Ordered By: Zeinab Wood on 01-08-2024 Basophils/100 WBC (Bld) 1.1 % Normal . [facility] Comment on above: Order Comment: PIPER FoleyKW Performed By: #### A ST, CREAT, ALT, CBC #### [facility] [address] [place] [address] Automated basophil countOrde red By: Zeinab Wood on 01-08-2024 Basophils (Bld) [#/Vol] 0.1 10*3/uL Normal 0.0-0.2 [facility] Comment on above: Order Comment: FASTJimmy SANTOS. JKW Result Comment: PERF ORMED BY: [facility] [address] [place] [address] PATHOLOGIST FOLDED CLOTH TAPER MONIK SILVESTRE M.D. Performed By: #### A ST, CREAT, ALT, CBC #### [facility] [address] [place] [address] Automated blood monocyte cou ntOrdered By: Zeinab Wood on 01-08-2024 Monocytes (Bld) [#/Vol] 0.8 10*3/uL Normal 0.0-0.8 [facility] Comment on above: Order Comment: FASTI DANIELLE. JKW Performed By: #### A ST, CREAT, ALT, CBC #### [facility] [address] [place] [address] Automated eosinophil %Ordere d By: Zeinab Wood on 01-08-2024 Eosinophils/100 WBC (Bld) 1.8 % Normal . [facility] Comment on above: Order Comment: FASTI NG. JKW Performed By: #### A ST, CREAT, ALT, CBC #### [facility] [address] [place] [address] Automated eosinophil countOr dered By: Zeinab oWod on 01-08-2024 Eosinophils (Bld) [#/Vol] 0.1 10*3/uL Normal 0.0-0.45 [facility] Comment on above: Order Comment: FASTI NG. JKW Performed By: #### A ST, CREAT, ALT, CBC #### [facility] [address] [place] [address] Automated monocyte %Ordered By: Zeinab Wood on 01-08-2024 Monocytes/100 WBC (Bld) 11.3 % Normal . [facility] Comment on above: Order Comment: FASTI NG. JKW Performed By: #### A ST, CREAT, ALT, CBC #### [facility] [address] [place] [address] Automated neutrophil %Ordere d By: Zeinab Wood on 01-08-2024 Neutrophils/100 WBC (Bld) 56.5 % Normal . [facility] Comment on above: Order Comment: FASTI NG. JKW Performed By: #### A ST, CREAT, ALT, CBC #### [facility] [address] [place] [address] CNPNon 01-08-2024 CNPN Telephone (ISSA) KOURTNEY NOVAK ([id number]) 1975 F Date Time Provider Department 01/08/24 ZEINAB WOOD During your visit today, we recorded the following information about you: Rohit Kaye MA 01/08/2024 3:19 PM Signed Lab results received from [facility]. Placed in dr Wodo folder for review, copy sent to scanning. Allergies As of Date: 01/08/2024 (No Known Allergies) Date Reviewed: 09/28/2023 Reviewed by: Michelle Thompson MA - Fully Assessed Reason for Visit: Results [95] Prescriptions as of 01/08/2024 - hydrOXYchloroQUINE (PLAQUENIL) 200 mg tablet take 1 tablet by mouth twice daily - predniSONE (DELTASONE) 5 mg tablet 1-2 tabs po qd - DULoxetine (CYMBALTA) 60 mg capsule Take 1 capsule by mouth once daily. - etodolac (LODINE) 400 mg tablet One tab po bid prn - nortriptyline (PAMELOR) 25 mg capsule Take 1 capsule by mouth daily at bedtime. - tiZANidine (ZANAFLEX) 4 mg tablet Take 1 tablet by mouth every 8 hours as needed. - vilazodone (VIIBRYD) 40 mg tablet Take 40 mg by mouth once daily. - benzonatate (TESSALON PERLES ORAL) - REXULTI 2 mg tablet Take 2 mg by mouth once daily. - budesonide (PULMICORT) 1 mg/2 mL nebulizer solution INHALE 1 (ONE) vial via NEBULIZER ONCE DAILY - dapagliflozin (FARXIGA) 5 mg tablet - DEXILANT 60 mg CpDM Take 1 capsule by mouth twice daily. - doxepin capsule 10 mg - glycopyrrolate (ROBINUL) 1 mg tablet Take 2 mg by mouth twice daily. - ipratropium-albuterol (DUONEB) 0.5 mg-3 mg(2.5 mg base)/3 mL nebu - lamoTRIgine (LAMICTAL) 200 mg tablet TAKE 3 TABLETS EVERY DAY - AMITIZA 24 mcg capsule Take 24 mcg by mouth twice daily. - metFORMIN (GLUCOPHAGE) 500 mg tablet - pioglitazone (ACTOS) 15 mg tablet - simvastatin (ZOCOR) 20 mg tablet Take 20 mg by mouth once daily. - sucralfate (CARAFATE) 1 gram tablet Problem List As Of Date 01/08/2024 Noted Resolved Intracranial meningioma (HCC) [D32.0] 06/01/2023 Chronic tension-type headache, intractable [G44*06/01/2023 Encounter Status:Closed by ROHIT KAYE on 01/08/24 Normal [facility] Complete Blood Count Auto Di ffon 01-08-2024 Mean Corpuscular HGB Conc 33.4 g/dL Normal 32.0-35.0 [facility] Comment on above: Order Comment: FASTI NG. JKW Performed By: #### A ST, CREAT, ALT, CBC #### [address] NRBC% 0.1 /100{WBC} Normal 0-0.5 [facility] Comment on above: Order Comment: FASTI NG. JKW Performed By: #### A ST, CREAT, ALT, CBC #### [facility] [address] [place] [address] Creatinineon 01-08-2024 GFR/1.73 sq M.predicted MDRD (S/P/Bld) [Vol rate/Area] mL/min/{1.73_m2} Normal [facility] Comment on above: Order Comment: FASTI NG. JKW Performed By: #### A ST, CREAT, ALT, CBC #### [facility] [address] [place] [address] Creatinine [Mass/volume] in Serum or PlasmaOrdered By: Zeinab Wood on 01-08-2024 Creatinine [Mass/Vol] 1.00 mg/dL Normal 0.60-1.20 [facility] Comment on above: Order Comment: FASTI NG. JKW Performed By: #### A ST, CREAT, ALT, CBC #### [facility] [address] [place] [address] Erythrocyte distribution wid th [Ratio] by Automated countOrdered By: Zeinab Wood on 01-08-2024 Erythrocyte distribution width (RBC) [Ratio] 13.1 % Normal 11.9-15.3 [facility] Comment on above: Order Comment: PIPER FoleyKW Performed By: #### A ST, CREAT, ALT, CBC #### [facility] [address] [place] [address] Erythrocytes [#/volume] in B lood by Automated countOrdered By: Zeinab Wood on 01-08-2024 RBC (Bld) [#/Vol] 4.29 10*6/uL Normal 3.60-5.00 [facility] Comment on above: Order Comment: PIPER FoleyKW Performed By: #### A ST, CREAT, ALT, CBC #### [facility] [address] [place] [address] Hematocrit [Volume Fraction] of Blood by Automated countOrdered By: Zeinab Wood on 01-08-2024 Hematocrit (Bld) [Volume fraction] 39.2 % Normal 34.0-46.4 [facility] Comment on above: Order Comment: PIPER FoleyKW Performed By: #### A ST, CREAT, ALT, CBC #### [facility] [address] [place] [address] Hemoglobin [Mass/volume] in BloodOrdered By: Zeinab Wood on 01-08-2024 Hemoglobin (Bld) [Mass/Vol] 13.1 g/dL Normal 11.8-15.4 [facility] Comment on above: Order Comment: PIPER FoleyKW Performed By: #### A ST, CREAT, ALT, CBC #### [facility] [address] [place] [address] Leukocytes [#/volume] correc jana for nucleated erythrocytes in Blood by Automated counOrdered By: Zeinab Wood on 01-08-2024 WBC corrected for nucl RBC Auto (Bld) [#/Vol] 6.8 10*3/uL 3.8-11.6 [facility] Leukocytes [#/volume] in Blo od by Automated countOrdered By: Zeinab Wood on 01-08-2024 WBC (Bld) [#/Vol] 6.8 10*3/uL Normal 3.8-11.6 [facility] Comment on above: Order Comment: PIPER SANTOS. JKW Performed By: #### A ST, CREAT, ALT, CBC #### [facility] [address] Lymphocytes [#/volume] in Bl ood by Automated countOrdered By: Zeinab Wood on 01-08-2024 Lymphocytes (Bld) [#/Vol] 2.0 10*3/uL Normal 1.00-4.8 [facility] Comment on above: Order Comment: PIPER SANTOS. OgKW Performed By: #### A ST, CREAT, ALT, CBC #### [facility] [address] [place] [address] Lymphocytes/100 leukocytes i n Blood by Automated countOrdered By: Zeinab Wood on 01-08-2024 Lymphocytes/100 WBC (Bld) 29.3 % Normal . [facility] Comment on above: Order Comment: PIPER SANTOS. JKW Performed By: #### A ST, CREAT, ALT, CBC #### [facility] [address] [place] [address] MCH [Entitic mass] by Automa jana countOrdered By: Zeinab Wood on 01-08-2024 MCH (RBC) [Entitic mass] 30.6 pg Normal 24.7-34.3 [facility] Comment on above: Order Comment: PIPER SANTOS. JKW Performed By: #### A ST, CREAT, ALT, CBC #### [facility] [address] MCHC Auto (RBC) [Mass/Vol]Or dered By: Zeinab Wood on 01-08-2024 MCHC (RBC) [Mass/Vol] 33.4 g/dL 32.0-35.0 [facility] MCV [Entitic volume] by Auto mated countOrdered By: Zeinab Wood on 01-08-2024 MCV (RBC) [Entitic vol] 91.5 fL Normal 80-100 [facility] Comment on above: Order Comment: FASTI NG. JKW Performed By: #### A ST, CREAT, ALT, CBC #### [facility] [address] [place] [address] Neutrophils [#/volume] in Bl ood by Automated countOrdered By: Zeinab Wood on 01-08-2024 Neutrophils (Bld) [#/Vol] 3.9 10*3/uL Normal 1.8-7.7 [facility] Comment on above: Order Comment: FASTI NG. JKW Performed By: #### A ST, CREAT, ALT, CBC #### [facility] [address] [place] [address] No Panel InformationOrdered By: Zeinab Wood on 01-08-2024 Estimated GFR (CKD-EPI) > 60.0 mL/Min [facility] Creatinine Clearance (Chem N/A [facility] Nucleated erythrocytes [Pres ence] in Blood by Automated countOrdered By: Zeinab Wood on 01-08-2024 Nucleated RBC Auto Ql (Bld) 0.1 /100{WBC} 0-0.5 [facility] Platelet mean volume [Entiti c volume] in Blood by Automated countOrdered By: Zeinab Wood on 01-08-2024 Platelet mean volume (Bld) [Entitic vol] 8.4 fL Normal 6.3-10.7 [facility] Comment on above: Order Comment: FASTI NG. JKW Performed By: #### A ST, CREAT, ALT, CBC #### [facility] [address] [place] [address] Platelets [#/volume] in Bloo d by Automated countOrdered By: Zeinab Wood on 01-08-2024 Platelets (Bld) [#/Vol] 284 10*3/uL Normal 150-450 [facility] Comment on above: Order Comment: FASTI NG. JKW Performed By: #### A ST, CREAT, ALT, CBC #### [facility] [address] [place] [address] CNPNon 01-05-2024 CNPN Telephone ([facility]) KISHOREKOURTNEY ([id number]) 1975 F Date Time Provider Department 01/05/24 MARIO ALBERTO PHILLIPS [facility] During your visit today, we recorded the following information about you: Mario Alberto Phillips RN 01/05/2024 1:06 PM Signed Spoke with Ms. Kourtney Johnson Kishore today confirming surgery on Thu03/28/[address] Erik Pineda. Preoperative appointments to be scheduled at a [facility] facility near the patient's home. Allergies As of Date: 01/05/2024 (No Known Allergies) Date Reviewed: 09/28/2023 Reviewed by: Michelle Thompson MA - Fully Assessed Reason for Visit: Schedule Surgery [1330] Prescriptions as of 01/05/2024 - hydrOXYchloroQUINE (PLAQUENIL) 200 mg tablet take 1 tablet by mouth twice daily - predniSONE (DELTASONE) 5 mg tablet 1-2 tabs po qd - DULoxetine (CYMBALTA) 60 mg capsule Take 1 capsule by mouth once daily. - etodolac (LODINE) 400 mg tablet One tab po bid prn - nortriptyline (PAMELOR) 25 mg capsule Take 1 capsule by mouth daily at bedtime. - tiZANidine (ZANAFLEX) 4 mg tablet Take 1 tablet by mouth every 8 hours as needed. - vilazodone (VIIBRYD) 40 mg tablet Take 40 mg by mouth once daily. - benzonatate (TESSALON PERLES ORAL) - REXULTI 2 mg tablet Take 2 mg by mouth once daily. - budesonide (PULMICORT) 1 mg/2 mL nebulizer solution INHALE 1 (ONE) vial via NEBULIZER ONCE DAILY - dapagliflozin (FARXIGA) 5 mg tablet - DEXILANT 60 mg CpDM Take 1 capsule by mouth twice daily. - doxepin capsule 10 mg - glycopyrrolate (ROBINUL) 1 mg tablet Take 2 mg by mouth twice daily. - ipratropium-albuterol (DUONEB) 0.5 mg-3 mg(2.5 mg base)/3 mL nebu - lamoTRIgine (LAMICTAL) 200 mg tablet TAKE 3 TABLETS EVERY DAY - AMITIZA 24 mcg capsule Take 24 mcg by mouth twice daily. - metFORMIN (GLUCOPHAGE) 500 mg tablet - pioglitazone (ACTOS) 15 mg tablet - simvastatin (ZOCOR) 20 mg tablet Take 20 mg by mouth once daily. - sucralfate (CARAFATE) 1 gram tablet Problem List As Of Date 01/05/2024 Noted Resolved Intracranial meningioma (HCC) [D32.0] 06/01/2023 Chronic tension-type headache, intractable [G44*06/01/2023 Encounter Status:Closed by MARIO ALBERTO PHILLIPS on 01/05/24 [facility] 01-04-2024 CNPN Telephone ([employer]) KOURTNEY NOVAK ([id number]) 1975 F Date Time Provider Department 01/04/24 ZEINAB WOOD During your visit today, we recorded the following information about you: Verenice Ga RN 01/04/2024 1:47 PM Signed Patient calling Needs 01/01/24 Lab Orders in [facility] please (pended) Also requesting to FAX 01/01/24 Lab Orders to [facility] She will send their FAX # in My Chart Zeinab Wood MD 01/04/2024 2:03 PM Signed Labs are ordered, please print and fax per patient request. MD Jay Grace Laura, MA 01/04/2024 2:45 PM Signed Printed labs. Sent msg to pt to clarify which [facility] to fax to. Labs/Fax sheet in Michelle's gambell green folder. Please fax once clarification is received. Michelle Thompson MA 01/04/2024 4:17 PM Signed Orders faxed. Confirmation received. Allergies As of Date: 01/04/2024 (No Known Allergies) Date Reviewed: 09/28/2023 Reviewed by: Michelle Thompson MA - Fully Assessed Reason for Visit: Lab Orders/FAX [Other] Prescriptions as of 01/04/2024 - hydrOXYchloroQUINE (PLAQUENIL) 200 mg tablet take 1 tablet by mouth twice daily - predniSONE (DELTASONE) 5 mg tablet 1-2 tabs po qd - DULoxetine (CYMBALTA) 60 mg capsule Take 1 capsule by mouth once daily. - etodolac (LODINE) 400 mg tablet One tab po bid prn - nortriptyline (PAMELOR) 25 mg capsule Take 1 capsule by mouth daily at bedtime. - tiZANidine (ZANAFLEX) 4 mg tablet Take 1 tablet by mouth every 8 hours as needed. - vilazodone (VIIBRYD) 40 mg tablet Take 40 mg by mouth once daily. - benzonatate (TESSALON PERLES ORAL) - REXULTI 2 mg tablet Take 2 mg by mouth once daily. - budesonide (PULMICORT) 1 mg/2 mL nebulizer solution INHALE 1 (ONE) vial via NEBULIZER ONCE DAILY - dapagliflozin (FARXIGA) 5 mg tablet - DEXILANT 60 mg CpDM Take 1 capsule by mouth twice daily. - doxepin capsule 10 mg - glycopyrrolate (ROBINUL) 1 mg tablet Take 2 mg by mouth twice daily. - ipratropium-albuterol (DUONEB) 0.5 mg-3 mg(2.5 mg base)/3 mL nebu - lamoTRIgine (LAMICTAL) 200 mg tablet TAKE 3 TABLETS EVERY DAY - AMITIZA 24 mcg capsule Take 24 mcg by mouth twice daily. - metFORMIN (GLUCOPHAGE) 500 mg tablet - pioglitazone (ACTOS) 15 mg tablet - simvastatin (ZOCOR) 20 mg tablet Take 20 mg by mouth once daily. - sucralfate (CARAFATE) 1 gram tablet Problem List As Of Date 01/04/2024 Noted Resolved Intracranial meningioma (HCC) [D32.0] 06/01/2023 Chronic tension-type headache, intractable [G44*06/01/2023 Encounter Status:Closed by MICHELLE THOMPSON on 01/04/24 Normal [facility] Automated basophil %Ordered By: Sammie Hoy on 11-11-2023 Basophils/100 WBC (Bld) 1.0 % Normal . [facility] Comment on above: Performed By: #### F E, MARIELLA, CBC ####[address] Automated basophil countOrde red By: Sammie Gonzalez on 11-11-2023 Basophils (Bld) [#/Vol] 0.1 10*3/uL Normal 0.0-0.2 [facility] Comment on above: Result Comment: PERF ORMED BY: [facility] [address] [place] [address] PATHOLOGIST FOLDED CLOTH TAPER MONIK SILVESTRE M.D. Performed By: #### F E, MARIELLA, CBC ####[address] Automated blood monocyte cou ntOrdered By: Sammie Gonzalez on 11-11-2023 Monocytes (Bld) [#/Vol] 0.9 10*3/uL High 0.0-0.8 [facility] Comment on above: Performed By: #### F E, MARIELLA, CBC ####[address] Automated eosinophil %Ordere d By: Sammie Gonzalez on 11-11-2023 Eosinophils/100 WBC (Bld) 1.3 % Normal . [facility] Comment on above: Performed By: #### F E, MARIELLA, CBC ####[address] Automated eosinophil countOr dered By: Sammie Gonzalez on 11-11-2023 Eosinophils (Bld) [#/Vol] 0.1 10*3/uL Normal 0.0-0.45 [facility] Comment on above: Performed By: #### F E, MARIELLA, CBC ####[address] Automated monocyte %Ordered By: Sammie Gonzalez on 11-11-2023 Monocytes/100 WBC (Bld) 9.8 % Normal . [facility] Comment on above: Performed By: #### F E, MARIELLA, CBC ####[facility] [id number] [place] [address] [facility] Automated neutrophil %Ordere d By: Sammie Janice on 11-11-2023 Neutrophils/100 WBC (Bld) 45.3 % Normal . [facility] Comment on above: Performed By: #### F E, MARIELLA, CBC ####[facility] [id number] [place] [address] [facility] CNPNon 11-11-2023 CNPN Telephone ([facility]SC[facility]) KOURTNEY NOVAK ([id number]) 1975 Date Time Provider Department 11/11/23 MARIO ALBERTO PHILLIPS [facility] During your visit today, we recorded the following information about you: Mario Alberto Phillips RN 11/11/2023 11:41 AM Signed Spoke with Ms.Mandie Alex Novak today following up on the [employer] message from 10/08/2023. She sent a message about having symptoms of blurry vision and was advised to schedule an appointment with ophthalmology. Today the patient stated that the blurry vision was 1 incident and that she did not have any vision changes since. She was made aware to send an update or call for any questions or concerns. Mario Alberto Phillips RN, [employer] Allergies As of Date: 11/11/2023 (No Known Allergies) Date Reviewed: 09/28/2023 Reviewed by: Michelle Thompson MA - Fully Assessed Reason for Visit: Care Coordination [3886] Cmt: follow up Prescriptions as of 11/11/2023 - DULoxetine (CYMBALTA) 60 mg capsule Take 1 capsule by mouth once daily. - etodolac (LODINE) 400 mg tablet One tab po bid prn - nortriptyline (PAMELOR) 25 mg capsule Take 1 capsule by mouth daily at bedtime. - tiZANidine (ZANAFLEX) 4 mg tablet Take 1 tablet by mouth every 8 hours as needed. - hydrOXYchloroQUINE (PLAQUENIL) 200 mg tablet TAKE 1 TABLET BY MOUTH TWICE DAILY - predniSONE (DELTASONE) 5 mg tablet 1-2 tabs po qd - vilazodone (VIIBRYD) 40 mg tablet Take 40 mg by mouth once daily. - benzonatate (TESSALON PERLES ORAL) - REXULTI 2 mg tablet Take 2 mg by mouth once daily. - budesonide (PULMICORT) 1 mg/2 mL nebulizer solution INHALE 1 (ONE) vial via NEBULIZER ONCE DAILY - dapagliflozin (FARXIGA) 5 mg tablet - DEXILANT 60 mg CpDM Take 1 capsule by mouth twice daily. - doxepin capsule 10 mg - glycopyrrolate (ROBINUL) 1 mg tablet Take 2 mg by mouth twice daily. - ipratropium-albuterol (DUONEB) 0.5 mg-3 mg(2.5 mg base)/3 mL nebu - lamoTRIgine (LAMICTAL) 200 mg tablet TAKE 3 TABLETS EVERY DAY - AMITIZA 24 mcg capsule Take 24 mcg by mouth twice daily. - metFORMIN (GLUCOPHAGE) 500 mg tablet - pioglitazone (ACTOS) 15 mg tablet - simvastatin (ZOCOR) 20 mg tablet Take 20 mg by mouth once daily. - sucralfate (CARAFATE) 1 gram tablet Problem List As Of Date 11/11/2023 Noted Resolved Intracranial meningioma (HCC) [D32.0] 06/01/2023 Chronic tension-type headache, intractable [G44*06/01/2023 Encounter Status:Closed by MARIO ALBERTO PHILLIPS on 11/11/23 Normal [facility] Complete Blood Count Auto Di ffon 11-11-2023 Mean Corpuscular HGB Conc 32.6 g/dL Normal 32.0-35.0 [facility] Comment on above: Performed By: #### F E, MARIELLA, CBC ####[facility] [id number] [place] [address] [facility] NRBC% 0.1 /100{WBC} Normal 0-0.5 [facility] Comment on above: Performed By: #### F MARIELLA Gomez, CBC ####[place] [id number] [facility] Erythrocyte distribution wid th [Ratio] by Automated countOrdered By: Sammie Gonzalez on 11-11-2023 Erythrocyte distribution width (RBC) [Ratio] 13.3 % Normal 11.9-15.3 [facility] Comment on above: Performed By: #### F MARIELLA Gomez, CBC ####[place] [id number] [facility] Erythrocytes [#/volume] in B lood by Automated countOrdered By: Sammie Gonzalez on 11-11-2023 RBC (Bld) [#/Vol] 4.34 10*6/uL Normal 3.60-5.00 [facility] Comment on above: Performed By: #### F MARIELLA Gomez, CBC ####[place] [id number] [facility] Ferritin [Mass/volume] in Se rum or PlasmaOrdered By: Sammie Gonzalez on 11-11-2023 Ferritin [Mass/Vol] 88.4 ng/mL Normal 11.0-306.8 [facility] Comment on above: Result Comment: PERF ORMED BY: [facility] [address] [place] [id number] PATHOLOGIST FOLDED CLOTH TAPER MONIK SILVESTRE M.D. Performed By: #### F MARIELLA Gomez, CBC ####[place] [id number] [facility] Hematocrit [Volume Fraction] of Blood by Automated countOrdered By: Sammie Gonzalez on 11-11-2023 Hematocrit (Bld) [Volume fraction] 39.9 % Normal 34.0-46.4 [facility] Comment on above: Performed By: #### F MARIELLA Gomez, CBC ####[place] [id number] [facility] Hemoglobin [Mass/volume] in BloodOrdered By: Sammie Gonzalez on 11-11-2023 Hemoglobin (Bld) [Mass/Vol] 13.0 g/dL Normal 11.8-15.4 [facility] Comment on above: Performed By: #### F E, MARIELLA, CBC ####[address] Iron [Mass/volume] in Serum or PlasmaOrdered By: Sammie Gonzalez on 11-11-2023 Iron [Mass/Vol] 93 ug/dL Normal 50-212 [facility] Comment on above: Performed By: #### F E, MARIELLA, CBC ####[address] Leukocytes [#/volume] correc jana for nucleated erythrocytes in Blood by Automated counOrdered By: Sammie Gonzlaez on 11-11-2023 WBC corrected for nucl RBC Auto (Bld) [#/Vol] 8.7 10*3/uL 3.8-11.6 [facility] Leukocytes [#/volume] in Blo od by Automated countOrdered By: Sammie Gonzalez on 11-11-2023 WBC (Bld) [#/Vol] 8.7 10*3/uL Normal 3.8-11.6 [facility] Comment on above: Performed By: #### F Jason, MARIELLA, CBC ####[address] Lymphocytes [#/volume] in Bl ood by Automated countOrdered By: Sammie Gonzalez on 11-11-2023 Lymphocytes (Bld) [#/Vol] 3.7 10*3/uL Normal 1.00-4.8 [facility] Comment on above: Performed By: #### F E, MARIELLA, CBC ####[place] [id number] [facility] Lymphocytes/100 leukocytes i n Blood by Automated countOrdered By: Sammie Gonzalez on 11-11-2023 Lymphocytes/100 WBC (Bld) 42.6 % Normal . [facility] Comment on above: Performed By: #### F E, MARIELLA, CBC ####[place] [id number] [facility] MCH [Entitic mass] by Automa jana countOrdered By: Sammie Gonzalez on 11-11-2023 MCH (RBC) [Entitic mass] 30.0 pg Normal 24.7-34.3 [facility] Comment on above: Performed By: #### F E, MARIELLA, CBC ####[address] MCHC Auto (RBC) [Mass/Vol]Or dered By: Sammie Gonzalez on 11-11-2023 MCHC (RBC) [Mass/Vol] 32.6 g/dL 32.0-35.0 [facility] MCV [Entitic volume] by Auto mated countOrdered By: Sammie Gonzalez on 11-11-2023 MCV (RBC) [Entitic vol] 92.1 fL Normal 80-100 [facility] Comment on above: Performed By: #### F E, MARIELLA, CBC ####[address] Neutrophils [#/volume] in Bl ood by Automated countOrdered By: Sammie Gonzalez on 11-11-2023 Neutrophils (Bld) [#/Vol] 4.0 10*3/uL Normal 1.8-7.7 [facility] Comment on above: Performed By: #### F E, MARIELLA, CBC ####[address] Nucleated erythrocytes [Pres ence] in Blood by Automated countOrdered By: Sammie Gonzalez on 11-11-2023 Nucleated RBC Auto Ql (Bld) 0.1 /100{WBC} 0-0.5 [facility] Platelet mean volume [Entiti c volume] in Blood by Automated countOrdered By: Sammie Gonzalez on 11-11-2023 Platelet mean volume (Bld) [Entitic vol] 9.0 fL Normal 6.3-10.7 [facility] Comment on above: Performed By: #### F E, MARIELLA, CBC ####[address] Platelets [#/volume] in Bloo d by Automated countOrdered By: Sammie Gonzalez on 11-11-2023 Platelets (Bld) [#/Vol] 363 10*3/uL Normal 150-450 [facility] Comment on above: Performed By: #### F MARIELLA Gomez CBC ####[facility] [id number] [facility] [place] [address] [facility] CNOVon 09-28-2023 CNOV Office Visit (RHEUAV ) KISHOREKOURTNEY ([id number]) 1975 F Date Time Provider Department 09/28/23 3:00 PM ZEINAB WOOD During your visit today, we recorded the following information about you: Pulse Blood pressure Weight Height 86/minute 102/47 108.4 kg 1.638 m Zeinab Wood MD 09/28/2023 3:26 PM Signed Kourtneynoah Novak is a 47 year old female who presents for follow up: RHEUM LABS elevated crp Negative RF, CCP, DWAYNE PREVIOUS DIAG arthralgias, FM, COPD INTERVAL HISTORY since last visit, has good and bad days Today has pain in neck and low back Pain of both legs on walking Continues to be on plaquenil and feels it is helping. Has ''not pulled a tendon while taking it'' felt plaquenil was helping significantly in beginning but now has ''pulling of tendons '' sensation currently Em stiffness- for about half hour No rash, ulcers, fevers, swollen lymph nodes, DVT/PE, raynauds, sicca symptoms, trouble swallowing, back pain, red eyes, Chron's/UC or Psoriasis. MEDS/THERAPIES TRIED: Plaquenil bid - started on 03/04 Prednisone- great response Savella for FM Gabapentin and lyrica- SE Cymbalta- started on 10/06 Mobic - did not help GENERAL: No weight loss, malaise or fevers., SEE HPI HEENT: Negative for frequent or significant headaches, No changes in hearing or vision, no nose bleeds or other nasal problems RESPIRATORY: Negative for cough, wheezing or shortness of breath. CARDIOVASCULAR: Negative for chest pain, leg swelling or palpitations. GI: Negative for abdominal discomfort, blood in stools or black stools or change in bowel habits MUSCULOSKELETAL :see HPI SKIN: Negative for lesions, rash, and itching. PSYCH: Negative for sleep disturbance, mood disorder and recent psychosocial stressors. NEURO: No history of headaches, syncope, paralysis, seizures or tremors All other reviewed and negative other than HPI. PAST MEDICAL HISTORY Diagnosis Date Anxiety COPD (chronic obstructive pulmonary disease) (HCC) Depression Diabetes mellitus (HCC) Fibromyalgia Mixed hyperlipidemia PAST SURGICAL HISTORY Procedure Laterality Date APPENDECTOMY 2020 HAND SURGERY HX Right 2020 REVISE MEDIAN N/CARPAL TUNNEL SURG Bilateral DULoxetine (CYMBALTA) 60 mg capsule Take 1 capsule by mouth once daily. nortriptyline (PAMELOR) 25 mg capsule Take 1 capsule by mouth daily at bedtime. tiZANidine (ZANAFLEX) 4 mg tablet Take 1 tablet by mouth every 8 hours as needed. hydrOXYchloroQUINE (PLAQUENIL) 200 mg tablet TAKE 1 TABLET BY MOUTH TWICE DAILY predniSONE (DELTASONE) 5 mg tablet 1-2 tabs po qd vilazodone (VIIBRYD) 40 mg tablet Take 40 mg by mouth once daily. benzonatate (TESSALON PERLES ORAL) REXULTI 2 mg tablet Take 2 mg by mouth once daily. budesonide (PULMICORT) 1 mg/2 mL nebulizer solution INHALE 1 (ONE) vial via NEBULIZER ONCE DAILY dapagliflozin (FARXIGA) 5 mg tablet DEXILANT 60 mg CpDM Take 1 capsule by mouth twice daily. doxepin capsule 10 mg glycopyrrolate (ROBINUL) 1 mg tablet Take 2 mg by mouth twice daily. ipratropium-albuterol (DUONEB) 0.5 mg-3 mg(2.5 mg base)/3 mL nebu lamoTRIgine (LAMICTAL) 200 mg tablet TAKE 3 TABLETS EVERY DAY AMITIZA 24 mcg capsule Take 24 mcg by mouth twice daily. metFORMIN (GLUCOPHAGE) 500 mg tablet pioglitazone (ACTOS) 15 mg tablet simvastatin (ZOCOR) 20 mg tablet Take 20 mg by mouth once daily. sucralfate (CARAFATE) 1 gram tablet (Patient not taking: Reported on 09/28/2023) FAMILY HISTORY Problem Relation Age of Onset Seizures Brother Social History Tobacco Use Smoking status: Former Smokeless tobacco: Never Substance Use Topics Alcohol use: Yes Drug use: Never BP (!) 102/47 Pulse 86 Ht 163.8 cm (5' 4.5 ) Wt 108.4 kg (238 lb 15.7 oz) BMI 40.39 kg/m? PE; Well built and nourished. Pleasant mood. In no acute distress. Examination of the skin: She has no rashes, ulcers, nodules or tightening of the skin. Eyes: Pupils are equal in size and reactive to light. Conjunctivae are noninjected. Sclerae are anicteric. Ears, Nose, Mouth and Throat: Nasal mucosa and septum appear normal. Teeth and gums appear normal. Oropharynx is clear of erythema and exudate. Hearing is grossly normal. Neck: Supple. There is no JVD. Trachea is in the midline. There are no palpable lymph nodes or scars. Respiratory: Lungs are clear to auscultation bilaterally with no dullness to percussion. There is good air movement in all lung zones. Cardiovascular: Heart rate is regular. Nomurmur or rub is appreciated. She has no carotid or abdominal bruits. Pedal pulses are easily palpable. She has no significant edema or varicosities of his lower extremities. GI: Bowel sounds are present. Abdomen is soft and nontender without rebound or guarding. No mass or organomegaly is noted. Lymphatic: There is no lymphadenopathy in the axilla (more content not included)... [facility] KOURTNEY NOVAK ([id number]) 1975 F Date Time Provider Department 07/02/23 ERIK PINEDA [facility] During your visit today, we recorded the following information about you: Justine Pagan 07/02/2023 3:07 PM Signed General Call Caller : Pt Contact Reason for Call : Pt would like to go forward w scheduling surgery. However, she would like surgery to be scheduled in March 2024, pt would like to discuss further Patient requesting return call ? Yes Mario Alberto Phillips, RN 07/06/2023 3:24 PM Signed Spoke with Ms. Kourtney Novak. We discussed that it is so far out to schedule surgery in March 2024. We discussed option of possible surgery dates. She will be contacted during late December- January 2024 to confirm the date of surgery and schedule the preoperative appointments. Mario Alberto Phillips RN, Broom Man Allergies As of Date: 07/02/2023 (No Known Allergies) Date Reviewed: 06/30/2023 Reviewed by: Heather Moy APRN.REBAR BENDER - Fully Assessed Reason for Visit: Patient Update [1234] Cmt: Discuss Surgery March 2024 Prescriptions as of 07/06/2023 - nortriptyline (PAMELOR) 25 mg capsule Take 1 capsule by mouth daily at bedtime. - tiZANidine (ZANAFLEX) 4 mg tablet Take 1 tablet by mouth every 8 hours as needed. - hydrOXYchloroQUINE (PLAQUENIL) 200 mg tablet TAKE 1 TABLET BY MOUTH TWICE DAILY - DULoxetine (CYMBALTA) 60 mg capsule Take 1 capsule by mouth once daily. - predniSONE (DELTASONE) 5 mg tablet 1-2 tabs po qd - vilazodone (VIIBRYD) 40 mg tablet Take 40 mg by mouth once daily. - benzonatate (TESSALON PERLES ORAL) - REXULTI 2 mg tablet Take 2 mg by mouth once daily. - budesonide (PULMICORT) 1 mg/2 mL nebulizer solution INHALE 1 (ONE) vial via NEBULIZER ONCE DAILY - dapagliflozin (FARXIGA) 5 mg tablet - DEXILANT 60 mg CpDM Take 1 capsule by mouth twice daily. - doxepin capsule 10 mg - glycopyrrolate (ROBINUL) 1 mg tablet Take 2 mg by mouth twice daily. - ipratropium-albuterol (DUONEB) 0.5 mg-3 mg(2.5 mg base)/3 mL nebu - lamoTRIgine (LAMICTAL) 200 mg tablet TAKE 3 TABLETS EVERY DAY - AMITIZA 24 mcg capsule Take 24 mcg by mouth twice daily. - metFORMIN (GLUCOPHAGE) 500 mg tablet - pioglitazone (ACTOS) 15 mg tablet - simvastatin (ZOCOR) 20 mg tablet Take 20 mg by mouth once daily. - sucralfate (CARAFATE) 1 gram tablet Problem List As Of Date 07/02/2023 Noted Resolved Intracranial meningioma (HCC) [D32.0] 06/01/2023 Chronic tension-type headache, intractable [G44*06/01/2023 Encounter Status:Closed by MARIO ALBERTO PHILLIPS on 07/06/23 Normal [facility] CNOVon 06-30-2023 CNOV Office Visit ([facility] ) KOURTNEY NOVAK ([id number]) 1975 F Date Time Provider Department 06/30/23 10:30 AM ERIK PINEDA [facility] During your visit today, we recorded the following information about you: Temperature Pulse Respiration Blood pressure 98.7 degrees 103/minute 18/minute 117/58 Weight Height 101.9 kg 1.64 m Erik Pineda MD 07/11/2023 2:03 PM Signed SECTION OF SKULL BASE SURGERY MINIMALLY INVASIVE CRANIAL BASE AND PITUITARY SURGERY PROGRAM [facility] AND Head and Neck Accident, [facility] CC: Patient Care Team: Sammie Gonzalez MD as PCP - General (Family Medicine) Montse Lou DO - [facility] ASSESSMENT: In summary, Kourtney Novak is a very pleasant 47 year old female with a right middle sphenoid wing mass consistent with meningioma. It was initially diagnosed in 2016, now with interval growth. We believe this is most likely a meningioma although the possibility that this could represent another type of tumor was also discussed. The natural history and treatment options for meningiomas (including observation, radiotherapy, radiosurgery (Gamma Knife), and surgery) were reviewed in detail. We discussed that she will likely need treatment at some point in her lifetime and surgery is a reasonable consideration. PLAN: She will consider management options and contact our office with her final decision in the next 1-2 weeks. If observation, plan to repeat MRI brain scan and follow-up in 12 months from last (due April 2024). She can have imaging done locally and follow-up via virtual visit. Heather Moy APRN.REBAR BENDER I have reviewed the progess note obtained and documented by the nurse practitioner who scribed on my behalf. I examined the patient and evaluated all available films and pertinent documents. This note accurately reflects work and decisions made by me. I spent approximately 50 minutes of total time for evaluation and management services provided on the date of the encounter which included preparing to see the patient, [id number] patient care, completing clinical documentation, performing a medically appropriate examination, counseling and educating the patient/family/caregi karen, communicating with other HCPs, independently interpreting results and care coordination. Erik Pineda MD The patient is referred by Dr. Montse Lou for neurosurgical evaluation. Final recommendations will be communicated back to the requesting physician by way of the shared medical records, or letters to requesting physician via US Mail. Chief Complaint: Meningioma History of Present Illness: Patient is unaccompanied. The patient is a 47 year old female who presents with known Right middle cranial fossa meningioma. Of note, this was initially diagnosed in 2016 during work-up of headaches. She was unaware of the tumor at this time and did not follow-up. Most recently, in NovemberApril 2023 had repeat scan for imbalance and trouble thinking and the above mass was noted to have growth. She was seen by Dr. Montse Lou for opinion and recommendation was made for neurosurgical evaluation. Interval history: 06/30/23 Has daily headaches for last several years; working with headache center for management and is working to discontinue Fioricet. 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 REVIEW OF SYMPTOMS: Neurological : + Complaint of headaches, follows with Dr. Fahad Luong (on Zanaflex AND Nortriptyline) No complaint of tinnitus No complaint of decreased hearing No complaint of diplopia No complaints of blurred vision No complaint of vision loss + Complaint of arm/leg numbness or tingling, RLE AND BLE No problem with limb coordination or imbalance No complaint of syncope or LOC or falls No complaint of seizures No complaints of memory changes, confusion, or disorientation. General : + Chronic inflammatory disease, follows with Rheumatology (on Plaquenil) + Fibromyalgia (on Cymbalta AND Prednisone prn) + Depression (on Viibryd AND Rexulti) + COPD (on Tessalon prn AND Pulmicort AND Duoneb) + DM (on Farxiga AND Metformin AND Actos) + HLP (on Zocor) + GERD (on Dexilant AND Carafate prn) + Anxiety (on Doxepin prn AND Lamictal) + Hydrohydrosis (on Robinul) + Constipation (on Amitiza) + Increased thirst Past Medical History: PAST MEDICAL HISTORY Diagnosis Date Anxiety COPD (chronic obstructive pulmonary disease) (HCC) Depression Diabetes mellitus (HCC) Fibromyalgia Mixed hyperlipidemia Past Surgical History: PAST SURGICAL HISTORY Procedure Laterality Date APPENDECTOMY 2020 HAND SURGERY HX Right 2020 REVISE MEDIAN N/CARPAL TUNNEL SURG Bilateral Family History: History reviewed. No pertinent family history. Social History: Social History Tobacco Use Smoking status: Former Smo (more content not included)... Normal [facility] CNOVon 06-01-2023 CNOV Office Visit ([facility] ) KOURTNEY NOVAK ([id number]) 1975 F Date Time Provider Department 06/01/23 7:00 AM MONTSE LOU [facility] During your visit today, we recorded the following information about you: Temperature Pulse Respiration Blood pressure 99.3 degrees 93/minute 18/minute 116/54 Weight Height 101.9 kg 1.64 m Montse Lou DO, PhD 06/01/2023 9:24 AM Signed [facility] New Patient Consultation Referred by Sammie Gonzalez MD [address] [place] [id number] Diagnosis: Multiple meningioma's with interval growth since 2015. Subjective History of Present Illness: Kourtney Novak is a 47 year old right handed female referred to [facility] by her PCP due to interval growth of known meningioma's since 2016. She started noticing imbalance a few months ago, leaning and veering to her right. 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 She has daily tension headaches x 10 years, located posteriorly with neck involvement. She had migraines as a teenager. She takes fioricet and excedrin per her PCP which are somewhat helpful. She sees a Chiropractor. She had a MRI Brain done in 2016 per her PCP, likely done for headaches. She does not feel her headaches have changed or worsened in the past 10 years. She denies awakening from headaches. She has tingling in her left arm, with intermittent numbness, radiating from the shoulder. Not painful. This has been going on a few months. She has hx of iron deficiency, has received iron infusions which have helped w fatigue. She notes issues with short term memory. No personal hx of seizures. Family hx: Father had an AVM which was surgically treated, with epilepsy after this. Her brother has seizures of unknown origin. No hx of hemorrhagic strokes. Her grandfather had ischemic stroke. Social hx: works in [employer] service. She lives in [place]. Interval History: 06/01/2023: Patient presents to establish care with [facility] and to discuss treatment options for meningiomas. Last Chemo: None Current Steroids dose: Prednisone 5mg daily Current AED Dose: None Review of systems: Constitutional: No recent fever or weight loss. Eyes: No history of glaucoma or cataracts. ENMT: No recent ear infection, nasal congestion, mouth sores or sore throat. CV: No history of chest pain, palpitations or leg swelling. Respiratory: h/o COPD Gastrointestinal: No history of nausea, vomiting, dysphagia or abdominal pain. Genitourinary: No history of hematuria or dysuria. Musculoskeletal: + fibromyalgia Psychiatric: + anxiety. ROS Neurological: + APARICIO, see HPI No complaint of tinnitus. No complaint of decreased hearing. No complaint of diplopia. No complaints of decreased visual acuity. No complaint of arm/leg numbness. No problem with limb coordination. No complaint of syncope, seizures or disorientation. Physical Exam: BP 116/54 Pulse 93[md notified[ Temp (Src) 99.3 (Oral) Resp 18 Ht 5' 4.567 (1.64m) Wt 224 lb 10.4 oz (101.9kg) SpO2 97% BMI 37.89 kg/(m2). General: Head, Face, Neck: No JVD, Carotid bruits. No thyroid enlargement, tenderness or mass. Eyes: Clear conjunctiva. Non-icteric. OE shows optic discs sharp. Posterior segments without hemorrhages. CV: Heart auscultation shows no abnormal sounds or murmurs. No calf tenderness or pedal edema. Peripheral pulses palpable. Respiratory: Breath sounds clear and audible throughout. Abdomen: Soft, non-tender with no organomegaly. Musculoskeletal: Gait is normal. Negative Rhomberg and tandem gait are normal. Muscle strength 5/5 and muscle tone normal without atrophy in all limbs Skin: No skin abnormality Neurological: Higher integrative functions: Oriented to person, place AND time Memory: Good recent and remote Attention Span and Concentration: Good Language: Accurate naming of objects. Good comprehension Fund of Knowledge: Good Sensory: Light touch and vibration intact. No extinction. 2nd CN: Full visual whtie 3rd,4th,6th CN: Pupils (=), round, react to light, full extraocular movements: 5th CN: No decrease in facial sensation, normal corneal reflexes. 7th CN: Facial muscles symmetric and strong 8th CN: Hears finger rub well bilaterally 9th CN: Good gag 10th CN: Spontaneous palate movement, full and symmetric 11th CN: Full strength in shoulder shrug. 12th CN: Tongue protrusion full and midline Myotic reflexes: 2/4 throughout and symmetrical Babinski reflexes: Absent Coordination: Rapid alternating movements fast and smooth all limbs. No dysdiadochokinesis KPS and ECOG Provider Data Form PHQ 2 and 9 Total Scores 09/22/2022 PHQ-2 Score 1 Past Medical History: (Per OSH chart) Diabetes Type II, GERD, Depression with anxiety, COPD, Emphysema, Hypercholesterolemia, Anemia, Arthritis, Bilateral cataracts, H (more content not included)... Normal [facility] Alanine aminotransferase [En zymatic activity/volume] in Serum or PlasmaOrdered By: Sammie Gonzalez on 05-22-2023 ALT [Catalytic activity/Vol] 14 U/L 7-52 [facility] Albumin [Mass/volume] in Ser um or Plasma by Bromocresol green (BCG) dye binding methoOrdered By: Sammie Gonzalez on 05-22-2023 Albumin BCG dye [Mass/Vol] 4.1 g/dL 3.5-5.7 [facility] Alkaline phosphatase [Enzyma tic activity/volume] in Serum or PlasmaOrdered By: Sammie Gonzalez on 05-22-2023 ALP [Catalytic activity/Vol] 45 U/L 34-104 [facility] Aspartate aminotransferase [ Enzymatic activity/volume] in Serum or PlasmaOrdered By: Sammie Gonzalez on 05-22-2023 AST [Catalytic activity/Vol] 12 U/L 13-39 [facility] Basophils Auto (Bld) [#/Vol] Ordered By: Sammie Gonzalez on 05-22-2023 Basophils (Bld) [#/Vol] 0.1 10*3/uL 0.0-0.2 [facility] Basophils/100 WBC Auto (Bld) Ordered By: Sammie Gonzalez on 05-22-2023 Basophils/100 WBC (Bld) 0.9 % . [facility] Bilirubin.total [Mass/volume ] in Serum or PlasmaOrdered By: Sammie Gonzalez on 05-22-2023 Bilirubin [Mass/Vol] 0.3 mg/dL 0.3-1.0 [facility] Calcium [Mass/volume] in Ser um or PlasmaOrdered By: Sammie Gonzalez on 05-22-2023 Calcium [Mass/Vol] 9.5 mg/dL 8.6-10.3 [facility] Carbon dioxide, total [Moles /volume] in Serum or PlasmaOrdered By: Sammie Gonzalez 05-22-2023 CO2 [Moles/Vol] 25.4 mmol/L 21.0-31.0 [facility] Chloride [Moles/volume] in S micki or PlasmaOrdered By: Sammie Gonzalez on 05-22-2023 Chloride [Moles/Vol] 106 mmol/L 98-107 [facility] Cholesterol [Mass/volume] in Serum or PlasmaOrdered By: Sammie Gonzalez on 05-22-2023 Cholesterol [Mass/Vol] 182 mg/dL 140-200 [facility] Comment on above: Chol less than 200 m g/dl low riskChol 201-239 mg/dl borderline riskChol 240 mg/dl and greater high risk Cholesterol in LDL Calc [Mas s/Vol]Ordered By: Sammie Gonzalez on 05-22-2023 Cholesterol in LDL [Mass/Vol] 58 mg/dL 0-100 [facility] Comment on above: LDL ATP III CLASSIFI CATIONLDL less than 100 mg/dL OptimalLDL 100-129 mg/dL Near or above optimalLDL 130-159 mg/dL Borderline highLDL 160-189 mg/dL HighLDL greater than 189 mg/dL Very high Cholesterol in VLDL Calc [Ma ss/Vol]Ordered By: Sammie Gonzalez on 05-22-2023 Cholesterol in VLDL [Mass/Vol] 44 mg/dL [facility] Creatinine [Mass/volume] in Serum or PlasmaOrdered By: Sammie Gonzalez on 05-22-2023 Creatinine [Mass/Vol] 0.89 mg/dL 0.60-1.20 [facility] Eosinophils Auto (Bld) [#/Vo l]Ordered By: Sammie Gonzalez on 05-22-2023 Eosinophils (Bld) [#/Vol] 0.1 10*3/uL 0.0-0.45 [facility] Eosinophils/100 WBC Auto (Bl d)Ordered By: Sammie Gonzalez on 05-22-2023 Eosinophils/100 WBC (Bld) 1.3 % . [facility] Erythrocyte distribution wid th Auto (RBC) [Ratio]Ordered By: Sammie Gonzalez on 05-22-2023 Erythrocyte distribution width (RBC) [Ratio] 20.4 % 11.9-15.3 [facility] Ferritin [Mass/volume] in Se rum or PlasmaOrdered By: Sammie Gonzalez on 05-22-2023 Ferritin [Mass/Vol] 147.2 ng/mL 11.0-306.8 [facility] Globulin Calc (S) [Mass/Vol] Ordered By: Sammie Gonzalez on 05-22-2023 Globulin (S) [Mass/Vol] 1.8 g/dL F [facility] Glucose [Mass/volume] in Ser um or PlasmaOrdered By: Sammie Gonzalez on 05-22-2023 Glucose [Mass/Vol] 88 mg/dL 70-100 [facility] Comment on above: ADA recommended refe rence rangeRandom Glucose Reference Range is dependent on time and content of last meal. Glucose of more than 200 mg/dL in a nonstressed, ambulatory subject supports the diagnosis of Diabetes Mellitus. Glucose mean value [Mass/vol ume] in Blood Estimated from glycated hemoglobinOrdered By: Sammie Gonzalez on 05-22-2023 Average glucose Estimated from glycated hemoglobin (Bld) [Mass/Vol] 105 mg/dL [facility] Hematocrit Auto (Bld) [Volum e fraction]Ordered By: Sammie Gonzalez on 05-22-2023 Hematocrit (Bld) [Volume fraction] 37.0 % 34.0-46.4 [facility] Hemoglobin A1c percentageOrd ered By: Sammie Gonzalez on 05-22-2023 HbA1c (Bld) [Mass fraction] 5.3 % 4.3-5.6 [facility] Comment on above: Increased risk for d iabetes: 5.7 - 6.4diabetes: >6.4glycemic control for adults with diabetes: <7.0 Hemoglobin [Mass/volume] in BloodOrdered By: Sammie Gonzalez on 05-22-2023 Hemoglobin (Bld) [Mass/Vol] 11.9 g/dL 11.8-15.4 [facility] Iron [Mass/volume] in Serum or PlasmaOrdered By: Sammie Gonzalez on 05-22-2023 Iron [Mass/Vol] 57 ug/dL 50-212 [facility] Leukocytes [#/volume] correc jana for nucleated erythrocytes in Blood by Automated counOrdered By: Sammie Gonzalez on 05-22-2023 WBC corrected for nucl RBC Auto (Bld) [#/Vol] 9.6 10*3/uL 3.8-11.6 [facility] Lymphocytes Auto (Bld) [#/Vo l]Ordered By: Sammie Gonzalez on 05-22-2023 Lymphocytes (Bld) [#/Vol] 2.2 10*3/uL 1.00-4.8 [facility] Lymphocytes/100 WBC Auto (Bl d)Ordered By: Sammie Gonzalez on 05-22-2023 Lymphocytes/100 WBC (Bld) 22.5 % . [facility] MCH Auto (RBC) [Entitic mass ]Ordered By: Sammie Gonzalez on 05-22-2023 MCH (RBC) [Entitic mass] 27.7 pg 24.7-34.3 [facility] MCHC Auto (RBC) [Mass/Vol]Or dered By: Sammie Gonzalez on 05-22-2023 MCHC (RBC) [Mass/Vol] 32.2 g/dL 32.0-35.0 [facility] MCV Auto (RBC) [Entitic vol] Ordered By: Sammie Gonzalez on 05-22-2023 MCV (RBC) [Entitic vol] 85.8 fL 80-100 [facility] Monocytes Auto (Bld) [#/Vol] Ordered By: Sammie Gonzalez on 05-22-2023 Monocytes (Bld) [#/Vol] 1.0 10*3/uL 0.0-0.8 [facility] Monocytes/100 WBC Auto (Bld) Ordered By: Sammie Gonzalez on 05-22-2023 Monocytes/100 WBC (Bld) 9.9 % . F [facility] Neutrophils Auto (Bld) [#/Vo l]Ordered By: Sammie Gonzalez on 05-22-2023 Neutrophils (Bld) [#/Vol] 6.3 10*3/uL 1.8-7.7 [facility] Neutrophils/100 WBC Auto (Bl d)Ordered By: Sammie Gonzalez on 05-22-2023 Neutrophils/100 WBC (Bld) 65.4 % . [facility] No Panel InformationOrdered By: Sammie Gonzalez on 05-22-2023 Estimated GFR (CKD-EPI) > 60.0 mL/Min [facility] Creatinine Clearance (Chem N/A [facility] Nucleated erythrocytes [Pres ence] in Blood by Automated countOrdered By: Sammie Gonzalez on 05-22-2023 Nucleated RBC Auto Ql (Bld) 0.1 /100{WBC} 0-0.5 [facility] Platelet mean volume Auto (B ld) [Entitic vol]Ordered By: Sammie Gonzalez on 05-22-2023 Platelet mean volume (Bld) [Entitic vol] 9.0 fL 6.3-10.7 [facility] Platelets Auto (Bld) [#/Vol] Ordered By: Sammie Gonzalez on 05-22-2023 Platelets (Bld) [#/Vol] 339 10*3/uL 150-450 [facility] Potassium [Moles/volume] in Serum or PlasmaOrdered By: Sammie Gonzalez on 05-22-2023 Potassium [Moles/Vol] 3.9 mmol/L 3.5-5.1 [facility] Protein [Mass/volume] in Ser um or PlasmaOrdered By: Sammie Gonzalez on 05-22-2023 Protein [Mass/Vol] 5.9 g/dL 6.4-8.9 [facility] RBC Auto (Bld) [#/Vol]Ordere d By: Sammie Gonzalez on 05-22-2023 RBC (Bld) [#/Vol] 4.31 10*6/uL 3.60-5.00 [facility] Serum or plasma albumin/glob ulin mass ratioOrdered By: Sammie Gonzalez on 05-22-2023 Albumin/Globulin [Mass ratio] 2.3 {ratio} [facility] Serum or plasma anion gap de terminationOrdered By: Sammie Gonzalez on 05-22-2023 Anion gap [Moles/Vol] 10.5 mmol/L 6.0-15.0 [facility] Serum or plasma high density lipoprotein (HDL) cholesterol measurementOrdered By: Sammie Gonzalez on 05-22-2023 Cholesterol in HDL [Mass/Vol] 79 mg/dL 23-92 [facility] Comment on above: HDL CHOL ATP-III CLA SSIFICATION Cardiovascular RiskHDL > or equal to 60 mg/dL LOWHDL < 40 mg/dL HIGH Serum or plasma total choles terol/high density lipoprotein (HDL) cholesterol mass ratOrdered By: Sammie Gonzalez on 05-22-2023 Cholesterol.total/Tali sterol in HDL [Mass ratio] 2.3 {ratio} <5.0 [facility] Sodium [Moles/volume] in Ser um or PlasmaOrdered By: Sammie Gonzalez on 05-22-2023 Sodium [Moles/Vol] 138 mmol/L 136-145 [facility] Thyrotropin [Units/volume] i n Serum or PlasmaOrdered By: Sammie Gonzalez on 05-22-2023 TSH Qn 3.27 m[IU]/L 0.45-5.33 [facility] Thyroxine (T4) free [Mass/vo lume] in Serum or PlasmaOrdered By: Sammie Gonzalez on 05-22-2023 Free T4 [Mass/Vol] 0.91 ng/dL 0.61-1.12 [facility] Triglyceride [Mass/volume] i n Serum or PlasmaOrdered By: Sammie Gonzalez on 05-22-2023 Triglyceride [Mass/Vol] 223 mg/dL 0-149 [facility] Comment on above: TRIG ATP III CLASSIF ICATIONTRIG less than 150 mg/dL NormalTRIG 150-199 mg/dL Borderline highTRIG 200-500 mg/dL High TRIG greater than 500 mg/dL Very highStandard traceable to the Center for Disease Conrtrol and Prevention (CDC) test method. Urea nitrogen [Mass/volume] in Serum or PlasmaOrdered By: Sammie Gonzalez on 05-22-2023 Urea nitrogen [Mass/Vol] 10 mg/dL 7-25 [facility] WBC Auto (Bld) [#/Vol]Ordere d By: Sammie Gonzalez on 05-22-2023 WBC (Bld) [#/Vol] 9.6 10*3/uL 3.8-11.6 [facility] Basophils Auto (Bld) [#/Vol] Ordered By: Sammie Gonzalez on 04-15-2023 Basophils (Bld) [#/Vol] 0.1 10*3/uL 0.0-0.2 [facility] Basophils/100 WBC Auto (Bld) Ordered By: Sammie Gonzalez on 04-15-2023 Basophils/100 WBC (Bld) 0.8 % . [facility] Eosinophils Auto (Bld) [#/Vo l]Ordered By: Sammie Gonzalez on 04-15-2023 Eosinophils (Bld) [#/Vol] 0.1 10*3/uL 0.0-0.45 [facility] Eosinophils/100 WBC Auto (Bl d)Ordered By: Sammie Gonzalez on 04-15-2023 Eosinophils/100 WBC (Bld) 1.3 % . [facility] Erythrocyte distribution wid th Auto (RBC) [Ratio]Ordered By: Sammie Gonzalez on 04-15-2023 Erythrocyte distribution width (RBC) [Ratio] 15.8 % 11.9-15.3 [facility] Ferritin [Mass/volume] in Se rum or PlasmaOrdered By: Sammie Gonzalez on 04-15-2023 Ferritin [Mass/Vol] 5.1 ng/mL 11.0-306.8 [facility] Hematocrit Auto (Bld) [Volum e fraction]Ordered By: Sammie Gonzalez on 04-15-2023 Hematocrit (Bld) [Volume fraction] 35.0 % 34.0-46.4 [facility] Hemoglobin [Mass/volume] in BloodOrdered By: Sammie Gonzalez on 04-15-2023 Hemoglobin (Bld) [Mass/Vol] 11.2 g/dL 11.8-15.4 [facility] Iron [Mass/volume] in Serum or PlasmaOrdered By: Sammie Gonzalez on 04-15-2023 Iron [Mass/Vol] 18 ug/dL 50-212 [facility] Leukocytes [#/volume] correc jana for nucleated erythrocytes in Blood by Automated counOrdered By: Sammie Gonzalez on 04-15-2023 WBC corrected for nucl RBC Auto (Bld) [#/Vol] 9.6 10*3/uL 3.8-11.6 [facility] Lymphocytes Auto (Bld) [#/Vo l]Ordered By: Sammie Gonzalez on 04-15-2023 Lymphocytes (Bld) [#/Vol] 2.2 10*3/uL 1.00-4.8 [facility] Lymphocytes/100 WBC Auto (Bl d)Ordered By: Sammie Gonzalez on 04-15-2023 Lymphocytes/100 WBC (Bld) 23.3 % . [facility] MCH Auto (RBC) [Entitic mass ]Ordered By: Sammie Gonzalez on 04-15-2023 MCH (RBC) [Entitic mass] 26.0 pg 24.7-34.3 [facility] MCHC Auto (RBC) [Mass/Vol]Or dered By: Sammie Gonzalez on 04-15-2023 MCHC (RBC) [Mass/Vol] 32.0 g/dL 32.0-35.0 [facility] MCV Auto (RBC) [Entitic vol] Ordered By: Sammie Gonzalez on 04-15-2023 MCV (RBC) [Entitic vol] 81.2 fL 80-100 [facility] Monocytes Auto (Bld) [#/Vol] Ordered By: Sammie Gonzalez on 04-15-2023 Monocytes (Bld) [#/Vol] 0.7 10*3/uL 0.0-0.8 [facility] Monocytes/100 WBC Auto (Bld) Ordered By: Sammie Gonzalez on 04-15-2023 Monocytes/100 WBC (Bld) 7.7 % . [facility] Neutrophils Auto (Bld) [#/Vo l]Ordered By: Sammie Gonzalez on 04-15-2023 Neutrophils (Bld) [#/Vol] 6.4 10*3/uL 1.8-7.7 [facility] Neutrophils/100 WBC Auto (Bl d)Ordered By: Sammie Gonzalez on 04-15-2023 Neutrophils/100 WBC (Bld) 66.9 % . [facility] Nucleated erythrocytes [Pres ence] in Blood by Automated countOrdered By: Sammie Gonzalez on 04-15-2023 Nucleated RBC Auto Ql (Bld) 0.4 /100{WBC} 0-0.5 [facility] Platelet mean volume Auto (B ld) [Entitic vol]Ordered By: Sammie Gonzalez on 04-15-2023 Platelet mean volume (Bld) [Entitic vol] 9.1 fL 6.3-10.7 [facility] Platelets Auto (Bld) [#/Vol] Ordered By: Sammie Gonzalez on 04-15-2023 Platelets (Bld) [#/Vol] 427 10*3/uL 150-450 [facility] RBC Auto (Bld) [#/Vol]Ordere d By: Sammie Gonzalez on 04-15-2023 RBC (Bld) [#/Vol] 4.31 10*6/uL 3.60-5.00 [facility] WBC Auto (Bld) [#/Vol]Ordere d By: Sammie Gonzalez on 04-15-2023 WBC (Bld) [#/Vol] 9.6 10*3/uL 3.8-11.6 [facility] BNPon 10-11-2022 Natriuretic peptide B (Bld) [Mass/Vol] 173.0 pg/mL Normal <=450.0 [facility] Comment on above: Performed By: #### L ACT #### [facility] [address] [place] [address] Dr. Ko Durbin CBC W MANUAL DIFFon 10-11-19 23 ATYPICAL LYMPH # 0.18 103/ul Normal [facility] Comment on above: Performed By: #### C VAUGHNMAN #### [facility] [address] [place] [address] Dr. Ko Durbin ATYPICAL LYMPH % 2 % Normal [facility] Comment on above: Performed By: #### C MARSHA #### [facility] [address] [place] [address] Dr. oK Durbin BAND # 0.0 103/ul Normal 0.0-0.3 [facility] Comment on above: Performed By: #### C MARSHA #### [facility] [address] [place] [address] Dr. Ko Durbin BAND % 0 % Normal 0-5 [facility] Comment on above: Performed By: #### C BCMAN #### [facility] [address] [place] [address] Dr. Ko Durbin BASOM # 0.00 103/ul Normal 0.00-0.10 [facility] Comment on above: Performed By: #### C BCMAN #### [facility] [address] [place] [address] Dr. Ko Durbin BASOM % 0.0 % Critically low 0.2-2.0 [facility] Comment on above: Performed By: #### C BCMAN #### [facility] [address] [place] [address] Dr. Ko Durbin BLAST # Normal [facility] Comment on above: Performed By: #### C MARSHA #### [facility] [address] [place] [address] Dr. Ko Durbin BLAST % Normal [facility] Comment on above: Performed By: #### C MARSHA #### [facility] [address] [address] [address] Ko Durbin CORRECTED WBC Normal 4.0-11.0 [facility] Comment on above: Performed By: #### C MARSHA #### [facility] [address] [address] [address] Ko Durbin EOS # 0.00 103/ul Normal 0.00-0.70 [facility] Comment on above: Performed By: #### C MARSHA #### [facility] [address] [address] [address] Ko Durbin EOS% 0.0 % Critically low 0.9-7.0 [facility] Comment on above: Performed By: #### C MARSHA #### [facility] [address] [address] [address] Ko Durbin HCT 32.8 % Critically low 36.0-48.0 [facility] Comment on above: Performed By: #### C MARSHA #### [facility] [address] [address] [address] Ko Durbin HGB 11.1 g/dl Critically low 12.0-16.0 [facility] Comment on above: Performed By: #### C MARSHA #### [facility] [address] [address] [address] Ko Durbin LYMPHM # 0.18 103/ul Critically low 1.20-3.80 [facility] Comment on above: Performed By: #### C MARSHA #### [facility] [address] [address] [address] Ko Durbin LYMPHM% 2.0 % Critically low 20.5-60.0 [facility] Comment on above: Performed By: #### C MARSHA #### [facility] [address] [address] [address] Ko Durbin MCH 27.7 pg Normal 26.7-34.0 [facility] Comment on above: Performed By: #### C MARSHA #### [facility] [address] [address] [address] Ko Durbin MCHC 33.8 g/dl Normal 29.9-35.2 [facility] Comment on above: Performed By: #### C MARSHA #### [facility] [address] [address] [address] Ko Durbin MCV 81.8 fL Normal 81.0-99.0 [facility] Comment on above: Performed By: #### C MARSHA #### [facility] [address] [address] [address] Ko Durbin METAMYELOCYTE # Normal [facility] Comment on above: Performed By: #### C MARSHA #### [facility] [address] [place] [address] Dr. Ko Durbin METAMYELOCYTE % Normal [facility] Comment on above: Performed By: #### C MARSHA #### [facility] [address] [place] [address] Dr. Ko Durbin MONOM# 0.09 103/ul Critically low 0.30-0.80 [facility] Comment on above: Performed By: #### C MARSHA #### [facility] [address] [place] [address] Dr. Ko Durbin MONOM% 1.0 % Critically low 1.7-12.0 [facility] Comment on above: Performed By: #### C MARSHA #### [facility] [address] [place] [address] Dr. Ko Durbin MPV 9.8 fL Normal 9.5-13.5 [facility] Comment on above: Performed By: #### C MARSHA #### [facility] [address] [place] [address] Dr. Ko Durbin MYELOCYTE # Normal [facility] Comment on above: Performed By: #### C MARSHA #### [facility] [address] [place] [address] Dr. Ko Durbin MYELOCYTE % Normal [facility] Comment on above: Performed By: #### C MARSHA #### [facility] [address] [address] [address] Ko Durbin NRBC Normal [facility] Comment on above: Performed By: #### C MARSHA #### [facility] [address] [address] [address] Ko Durbin PLT 375 103/ul Normal 150-450 [facility] Comment on above: Performed By: #### C MARSHA #### [facility] [address] [address] [address] Ko Durbin RBC 4.01 106/ul Critically low 4.20-5.40 [facility] Comment on above: Performed By: #### C MARSHA #### [facility] [address] [place] [address] Dr. Ko Durbin RDW 13.5 % Normal 11.0-15.0 [facility] Comment on above: Performed By: #### C MARSHA #### [facility] [address] [place] [address] Dr. Ko Durbin SEG # 8.55 103/ul Critically high 1.40-6.50 [facility] Comment on above: Performed By: #### C MARSHA #### [facility] [address] [place] [address] Dr. Ko Durbin SEG % 95.0 % Critically high 43.0-75.0 [facility] Comment on above: Performed By: #### C MARSHA #### [facility] [address] [place] [address] Dr. Ko Durbin WBC 9.0 103/ul Normal 4.0-11.0 [facility] Comment on above: Performed By: #### C MARSHA #### [facility] [address] [place] [address] Dr. Ko Durbin POINT OF CARE GLUCOSEon 09-15 Glucose [Mass/Vol] 98 mg/dL Normal 74-106 [facility] Comment on above: Performed By: #### L ACT #### [facility] [address] [place] [address] Dr. Ko Durbin Glucose [Mass/Vol] 158 mg/dL Critically high 74-106 [facility] Comment on above: Performed By: #### P OCGLUC #### [facility] [address] [place] [address] Dr. Ko Durbin PROF 14(COMP METB)on 023 Albumin [Mass/Vol] 3.7 g/dL Normal 3.4-5.0 [facility] Comment on above: Performed By: #### L ACT #### [facility] [address] [address] [address] Ko Durbin Albumin/Globulin [Mass ratio] 1.2 {ratio} Normal [facility] Comment on above: Performed By: #### L ACT #### [facility] [address] [place] [address] Dr. Ko Durbin ALP [Catalytic activity/Vol] 42 U/L Critically low 46-116 [facility] Comment on above: Performed By: #### L ACT #### [facility] [address] [address] [address] Ko Durbin ALT [Catalytic activity/Vol] 30 U/L Normal 14-59 [facility] Comment on above: Performed By: #### L ACT #### [facility] [address] [place] [address] Dr. Ko Durbin Anion gap [Moles/Vol] 17.1 mmol/L Normal [facility] Comment on above: Performed By: #### L ACT #### [facility] [address] [place] [address] Dr. Ko Durbin AST [Catalytic activity/Vol] 15 U/L Normal 15-37 [facility] Comment on above: Performed By: #### L ACT #### [facility] [address] [place] [address] Dr. Ko Durbin Bilirubin [Mass/Vol] 0.2 mg/dL Normal 0.2-1.0 [facility] Comment on above: Performed By: #### L ACT #### [facility] [address] [place] [address] Dr. Ko Durbin Calcium [Mass/Vol] 9.6 mg/dL Normal 8.5-10.1 [facility] Comment on above: Performed By: #### L ACT #### [facility] [address] [address] [address] Ko Durbin Chloride [Moles/Vol] 100 mmol/L Normal 98-107 [facility] Comment on above: Performed By: #### L ACT #### [facility] [address] [address] [address] Ko Durbin CO2 [Moles/Vol] 22.3 mmol/L Normal 21.0-32.0 [facility] Comment on above: Performed By: #### L ACT #### [facility] [address] [address] [address] Ko Drubin Creatinine [Mass/Vol] 1.10 mg/dL Critically high 0.55-1.02 [facility] Comment on above: Performed By: #### L ACT #### [facility] [address] [address] [address] Ko Durbin EGFR-AF CAMBODIAN >60 Normal >=60 [facility] Comment on above: Performed By: #### L ACT #### [facility] [address] [address] [address] Ko Durbin EGFR-NON AF CAMBODIAN 54 mL/min/1.73m2 Critically low >=60 [facility] Comment on above: Performed By: #### L ACT #### [facility] [address] [address] [address] Ko Durbin Globulin (S) [Mass/Vol] 3.1 g/dL Normal [facility] Comment on above: Performed By: #### L ACT #### [facility] [address] [address] [address] Ko Durbin Glucose [Mass/Vol] 180 mg/dL Critically high 74-106 [facility] Comment on above: Performed By: #### L ACT #### [facility] [address] [address] [address] Ko Durbin Potassium [Moles/Vol] 3.4 mmol/L Critically low 3.5-5.1 [facility] Comment on above: Performed By: #### L ACT #### [facility] [address] [place] [address] Dr. Ko Durbin Protein [Mass/Vol] 6.8 g/dL Normal 6.4-8.2 [facility] Comment on above: Performed By: #### L ACT #### [facility] [address] [address] [address] Ko Durbin Sodium [Moles/Vol] 136 mmol/L Normal 136-145 [facility] Comment on above: Performed By: #### L ACT #### [facility] [address] [address] [address] Ko Durbin Urea nitrogen [Mass/Vol] 19.0 mg/dL Critically high 7.0-18.0 [facility] Comment on above: Performed By: #### L ACT #### [facility] [address] [place] [address] Dr. Ko Durbin Urea nitrogen/Creatinine [Mass ratio] 17.3 mg/mg Normal [facility] Comment on above: Performed By: #### L ACT #### [facility] [address] [place] [address] Dr. Ko Durbin BNPon 10-10-2022 Natriuretic peptide B (Bld) [Mass/Vol] 291.0 pg/mL Normal <=450.0 [facility] Comment on above: Performed By: #### C MP, CMADM, BNP #### [facility] [address] [place] [address] Dr. Ko Durbin CARDIAC PERRY ADMITon 023 CK [Catalytic activity/Vol] 286 U/L Critically high 26-192 [facility] Comment on above: Performed By: #### C MP, CMADM, BNP #### [facility] [address] [place] [address] Dr. Ko Durbin CK.MB [Mass/Vol] 4.51 ng/mL Critically high <=3.60 [facility] Comment on above: Performed By: #### C MP, CMADM, BNP #### [facility] [address] [place] [address] Dr. Ko Durbin HSTROP 5.0 pg/mL Normal 4.0-51.3 [facility] Comment on above: Result Comment: CUT- OFF POINTS HAVE BEEN ESTABLISHED BASED ON THE FOURTH UNIVERSAL DEFINITIONS OF MYOCARDIAL INFARCTION. THE UPPER REFERENCE LIMIT (URL) OF TROPONIN, DEFINED THE 99TH PERCENTILE OF cTnI DISTRIBUTION IN A REFERENCE POPULATION, HAS BEEN CONFIRMED THE DECISION THRESHOLD FOR SD DIAGNOSIS. Performed By: #### C MP, CMADM, BNP #### [facility] [address] [place] [address] Dr. Ko Durbin JAROD 184 ng/mL Critically high 9-82 [facility] Comment on above: Performed By: #### C MP, CMADM, BNP #### [facility] [address] [place] [address] Dr. Ko Durbin CBC AUTO DIFFon 10-10-2022 BASO # 0.0 103/ul Normal 0.0-0.1 [facility] Comment on above: Performed By: #### C BC #### [facility] [address] [place] [address] Dr. Ko Durbin Basophils/100 WBC (Bld) 0.2 % Normal 0.2-2.0 [facility] Comment on above: Performed By: #### C BC #### [facility] [address] [place] [address] Dr. Ko Durbin EO # 0.0 103/ul Normal 0.0-0.7 [facility] Comment on above: Performed By: #### C BC #### [facility] [address] [place] [address] Dr. Ko Durbin Eosinophils/100 WBC (Bld) 0.0 % Critically low 0.9-7.0 [facility] Comment on above: Performed By: #### C BC #### [facility] [address] [place] [address] Dr. Ko Durbin Erythrocyte distribution width (RBC) [Ratio] 13.7 % Normal 11.0-15.0 [facility] Comment on above: Performed By: #### C BC #### [facility] [address] [place] [address] Dr. Ko Durbin Hematocrit (Bld) [Volume fraction] 31.8 % Critically low 36.0-48.0 [facility] Comment on above: Performed By: #### C BC #### [facility] [address] [place] [address] Dr. Ko Durbin Hemoglobin (Bld) [Mass/Vol] 11.1 g/dL Critically low 12.0-16.0 [facility] Comment on above: Performed By: #### C BC #### [facility] [address] [place] [address] Dr. Ko Durbin IG # 0.11 10e3/ul Critically high 0.00-0.03 [facility] Comment on above: Performed By: #### C BC #### [facility] [address] [place] [address] Dr. Ko Durbin IG % 1.0 % Critically high 0.0-0.5 [facility] Comment on above: Performed By: #### C BC #### [facility] [address] [place] [address] Dr. Ko Durbin LYMPH # 1.8 103/ul Normal 1.2-3.8 [facility] Comment on above: Performed By: #### C BC #### [facility] [address] [place] [address] Dr. Ko Durbin Lymphocytes/100 WBC (Bld) 16.2 % Critically low 20.5-60.0 [facility] Comment on above: Performed By: #### C BC #### [facility] [address] [place] [address] Dr. Ko Durbin MANUAL DIFF REQ NO Normal [facility] Comment on above: Performed By: #### C BC #### [facility] [address] [place] [address] Dr. Ko Durbin MCH (RBC) [Entitic mass] 28.2 pg Normal 26.7-34.0 [facility] Comment on above: Performed By: #### C BC #### [facility] [address] [place] [address] Dr. Ko Durbin MCHC (RBC) [Mass/Vol] 34.9 g/dL Normal 29.9-35.2 [facility] Comment on above: Performed By: #### C BC #### [facility] [address] [place] [address] Dr. Ko Durbin MCV (RBC) [Entitic vol] 80.7 fL Critically low 81.0-99. 0 [facility] Comment on above: Performed By: #### C BC #### [facility] [address] [place] [address] Dr. Ko Durbin MONO # 0.7 103/ul Normal 0.3-0.8 [facility] Comment on above: Performed By: #### C BC #### [facility] [address] [place] [address] Dr. Ko Durbin Monocytes/100 WBC (Bld) 6.3 % Normal 1.7-12.0 [facility] Comment on above: Performed By: #### C BC #### [facility] [address] [place] [address] Dr. Ko Durbin NEUT # 8.4 103/ul Critically high 1.4-6.5 [facility] Comment on above: Performed By: #### C BC #### [facility] [address] [place] [address] Dr. Ko Durbin Neutrophils/100 WBC (Bld) 76.3 % Critically high 43.0-75.0 [facility] Comment on above: Performed By: #### C BC #### [facility] [address] [place] [address] Dr. Ko Durbin Platelet mean volume (Bld) [Entitic vol] 9.5 fL Normal 9.5-13.5 [facility] Comment on above: Performed By: #### C BC #### [facility] [address] [place] [address] Dr. Ko Durbin PLT 384 103/ul Normal 150-450 [facility] Comment on above: Performed By: #### C BC #### [facility] [address] [place] [address] Dr. Ko Durbin RBC 3.94 106/ul Critically low 4.20-5.40 [facility] Comment on above: Performed By: #### C BC #### [facility] [address] [place] [address] Dr. Ko Durbin WBC 11.0 103/ul Normal 4.0-11.0 [facility] Comment on above: Performed By: #### C BC #### [facility] [address] [place] [address] Dr. Ko Durbin CULTURE URINEon 10-10-2022 CULTURE URINE Culture Observations : NO GROWTH. Normal [facility] Comment on above: Performed By: #### U RCX #### [facility] [address] [place] [address] Dr. Ko Durbin Covid-19 PCR (CVDTB)on 09-15 SARS-CoV-2 (COVID-19) RNA RADHA+probe Ql (Unsp spec) Not detected Normal NOT DETECTED [facility] Comment on above: Result Comment: When diagnostic testing is negative, the possibility of a false negative should be considered in the context of a patient's recent exposures and the presence of clinical signs and symptoms consistent with SARS-CoV-2. This test is not yet approved or cleared by the [place] FDA. When there are no FDA-approved or cleared tests available, and other criteria are met, FDA can make tests available under an emergency access mechanism called an Emergency Use Authorization (EUA). The EUA for this test is supported by the [place] of Health and Human Service's declaration that circumstances exist to justify the emergency use of in vitro diagnostics for the detection and/or diagnosis of the virus that causes COVID-19. This EUA will remain in effect for the duration of the COVID-19 declaration justifying emergency of IVDs, unless it is terminated or revoked by the FDA (after which the test may no longer be used). Performed By: #### C VDTBH #### [facility] [address] [place] [address] Dr. Ko Durbin LACTATE/LACTIC ACIDon 2022 Lactate [Moles/Vol] 1.7 mmol/L Normal 0.4-1.9 [facility] Comment on above: Performed By: #### L ACT #### [facility] [address] [address] [address] Ko Durbin POINT OF CARE GLUCOSEon 09-15 Glucose [Mass/Vol] 139 mg/dL Critically high 74-106 [facility] Comment on above: Performed By: #### P OCGLUC #### [facility] [address] [address] [address] Ko Durbin Glucose [Mass/Vol] 99 mg/dL Normal 74-106 [facility] Comment on above: Performed By: #### L ACT #### [facility] [address] [place] [address] Dr. Ko Durbin PROF 14(COMP METB)on 023 Albumin [Mass/Vol] 3.9 g/dL Normal 3.4-5.0 [facility] Comment on above: Performed By: #### C MP, CMADM, BNP #### [facility] [address] [place] [address] Dr. Ko Durbin Albumin/Globulin [Mass ratio] 1.3 {ratio} Normal [facility] Comment on above: Performed By: #### C MP, CMADM, BNP #### [facility] [address] [place] [address] Dr. Ko Durbin ALP [Catalytic activity/Vol] 43 U/L Critically low 46-116 [facility] Comment on above: Performed By: #### C MP, CMADM, BNP #### [facility] [address] [place] [address] Dr. Ko Durbin ALT [Catalytic activity/Vol] 34 U/L Normal 14-59 [facility] Comment on above: Performed By: #### C MP, CMADM, BNP #### [facility] [address] [place] [address] Dr. oK Durbin Anion gap [Moles/Vol] 16.2 mmol/L Normal [facility] Comment on above: Performed By: #### C MP, CMADM, BNP #### [facility] [address] [place] [address] Dr. Ko Durbin AST [Catalytic activity/Vol] 18 U/L Normal 15-37 [facility] Comment on above: Performed By: #### C MP, CMADM, BNP #### [facility] [address] [address] [address] Ko Durbin Bilirubin [Mass/Vol] 0.2 mg/dL Normal 0.2-1.0 [facility] Comment on above: Performed By: #### C MP, CMADM, BNP #### [facility] [address] [address] [address] Ko Durbin Calcium [Mass/Vol] 9.4 mg/dL Normal 8.5-10.1 [facility] Comment on above: Performed By: #### C MP, CMADM, BNP #### [facility] [address] [address] [address] Ko Durbin Chloride [Moles/Vol] 99 mmol/L Normal 98-107 [facility] Comment on above: Performed By: #### C MP, CMADM, BNP #### [facility] [address] [address] [address] Ko Durbin CO2 [Moles/Vol] 25.7 mmol/L Normal 21.0-32.0 [facility] Comment on above: Performed By: #### C MP, CMADM, BNP #### [facility] [address] [address] [address] Ko Durbin Creatinine [Mass/Vol] 1.10 mg/dL Critically high 0.55-1.02 [facility] Comment on above: Performed By: #### C MP, CMADM, BNP #### [facility] [address] [place] [address] Dr. Ko Durbin EGFR-AF CAMBODIAN >60 Normal >=60 [facility] Comment on above: Performed By: #### C MP, CMADM, BNP #### [facility] [address] [place] [address] Dr. Ko Durbin EGFR-NON AF CAMBODIAN 54 mL/min/1.73m2 Critically low >=60 [facility] Comment on above: Performed By: #### C MP, CMADM, BNP #### [facility] [address] [address] [address] Ko Durbin Globulin (S) [Mass/Vol] 2.9 g/dL Normal [facility] Comment on above: Performed By: #### C MP, CMADM, BNP #### [facility] [address] [address] [address] Ko Durbin Glucose [Mass/Vol] 97 mg/dL Normal 74-106 [facility] Comment on above: Performed By: #### C MP, CMADM, BNP #### [facility] [address] [address] [address] Ko Durbin Potassium [Moles/Vol] 3.9 mmol/L Normal 3.5-5.1 [facility] Comment on above: Performed By: #### C MP, CMADM, BNP #### [facility] [address] [place] [address] Dr. Ko Durbin Protein [Mass/Vol] 6.8 g/dL Normal 6.4-8.2 [facility] Comment on above: Performed By: #### C MP, CMADM, BNP #### [facility] [address] [address] [address] Ko Durbin Sodium [Moles/Vol] 137 mmol/L Normal 136-145 [facility] Comment on above: Performed By: #### C MP, CMADM, BNP #### [facility] [address] [place] [address] Dr. Ko Durbin Urea nitrogen [Mass/Vol] 16.0 mg/dL Normal 7.0-18.0 [facility] Comment on above: Performed By: #### C MP, CMADM, BNP #### [facility] [address] [place] [address] Dr. Ko Durbin Urea nitrogen/Creatinine [Mass ratio] 14.5 mg/mg Normal [facility] Comment on above: Performed By: #### C MP, CMADM, BNP #### [facility] [address] [place] [address] Dr. Ko Durbin UA RANDOM W/MICROSCOPICon BACTERIA NONE SEEN Normal NONE SEEN [facility] Comment on above: Performed By: #### L ACT #### [facility] [address] [address] [address] Ko Durbin Bilirubin Ql (U) Negative Normal NEGATIVE [facility] Comment on above: Performed By: #### L ACT #### [facility] [address] [place] [address] Dr. Ko Durbin CAST NONE SEEN Normal NONE SEEN [facility] Comment on above: Performed By: #### L ACT #### [facility] [address] [place] [address] Dr. Ko Durbin Clarity (U) CLEAR Normal CLEAR [facility] Comment on above: Performed By: #### L ACT #### [facility] [address] [place] [address] Dr. Ko Durbin Color (U) LT. YELLOW Normal YELLOW [facility] Comment on above: Performed By: #### L ACT #### [facility] [address] [place] [address] Dr. Ko Durbin Crystals LM Nom (Urine sed) NONE SEEN Normal NONE SEEN [facility] Comment on above: Performed By: #### L ACT #### [facility] [address] [place] [address] Dr. Ko Durbin Epithelial cells LM Ql (Urine sed) NONE SEEN Normal NONE SEEN /RARE [facility] Comment on above: Performed By: #### L ACT #### [facility] [address] [place] [address] Dr. Ko Durbin Glucose Ql (U) 500 mg/dl Abnormal NEGATIVE [facility] Comment on above: Performed By: #### L ACT #### [facility] [address] [place] [address] Dr. Ko Durbin Hemoglobin Ql (U) TRACE-INTACT Abnormal NEGATIVE [facility] Comment on above: Performed By: #### L ACT #### [facility] [address] [address] [address] Ko Durbin Ketones Ql (U) Negative Normal NEGATIVE [facility] Comment on above: Performed By: #### L ACT #### [facility] [address] [place] [address] Dr. Ko Durbin LEUKOCYTES Negative Normal NEGATIVE [facility] Comment on above: Performed By: #### L ACT #### [facility] [address] [place] [address] Dr. Ko Durbin MUCOUS NONE SEEN Normal NONE SEEN [facility] Comment on above: Performed By: #### L ACT #### [facility] [address] [place] [address] Dr. Ko Durbin Nitrite Ql (U) Negative Normal NEGATIVE [facility] Comment on above: Performed By: #### L ACT #### [facility] [address] [place] [address] Dr. Ko Durbin pH (U) 5.5 [pH] Normal 5-9 [facility] Comment on above: Performed By: #### L ACT #### [facility] [address] [place] [address] Dr. Ko Durbin RBC 0-2 Normal 0-2 [facility] Comment on above: Performed By: #### L ACT #### [facility] [address] [place] [address] Dr. Ko Durbin SPEC GRAVITY <=1.005 Abnormal 1.005-<=1.0 25 [facility] Comment on above: Performed By: #### L ACT #### [facility] [address] [place] [address] Dr. Ko Durbin UA PROTEIN Negative Normal NEGATIVE/ TRACE [facility] Comment on above: Performed By: #### L ACT #### [facility] [address] [place] [address] Dr. Ko Durbin Urobilinogen Qn (U) 0.2 {Rich'U}/dL Normal 0.2 - 1. 0 [facility] Comment on above: Performed By: #### L ACT #### [facility] [address] [place] [address] Dr. Ko Durbin WBC NONE SEEN Normal NONE SEEN [facility] Comment on above: Performed By: #### L ACT #### [facility] [address] [place] [address] Dr. Ko Durbin XR CHEST 2 Von 10-10-2022 XR CHEST 2 V EXAMINATION: XR CHES T 2 V HISTORY: Shortness of breath COMPARISON: Chest x-rays 11/14/2019 TECHNIQUE: PA and lateral chest x-rays FINDINGS: The lung parenchyma is free of consolidation or infiltrate. No pneumothorax or pleural effusion. The cardiac, mediastinal and hilar contours are normal. The visualized osseous structures exhibit no gross abnormality. IMPRESSION: No acute cardiopulmonary abnormality. Electronically authenticated by: LIAT MARISCAL Date: 2022-10-10 17:23 Normal [facility] XR wrist RT min 3V*on 2022 XR wrist RT min 3V* [facility] [employer] Other XR wrist RT min 3V* [facility] [employer] Other XR wrist RT min 3V* [address] [place] [address] [employer] Other XR wrist RT min 3V* [place] [address] [employer] Other XR wrist RT min 3V* XRay Report [facility] [employer] Other XR wrist RT min 3V* Signed [employer] Other XR wrist RT min 3V* Patient: Kourtney Novak MR#: [id number] [employer] Other XR wrist RT min 3V* [id number] [employer] Other XR wrist RT min 3V* : 1975 Acct:[id number] [employer] Other XR wrist RT min 3V* Age/Sex: 46 / F ADM Date: 09/24/22 [employer] Other XR wrist RT min 3V* Loc: [facility] Room: Type : [facility] [employer] Other XR wrist RT min 3V* Attending Dr: Naz Gomes MD [employer] Other XR wrist RT min 3V* Copies to: Elyssa Gomes MD [employer] Other XR wrist RT min 3V* Ordering Provider: Elyssa Gomes MD [employer] Other XR wrist RT min 3V* Date of Service: 09/24/22 [employer] Other XR wrist RT min 3V* XR/XR wrist RT min 3V*: Osteochondrosis of lunate of right wrist [employer] Other XR wrist RT min 3V* RIGHT WRIST - 4 views [employer] Other XR wrist RT min 3V* CLINICAL HISTORY: Follow-up right wrist denervation and radial core decompression [employer] Other XR wrist RT min 3V* COMPARISON: None [employer] Other XR wrist RT min 3V* FINDINGS: [employer] Other XR wrist RT min 3V* No focal soft tissue abnormality. 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 Triquetral fracture is unchanged. Mild degenerative changes without bony erosion. [employer] Other XR wrist RT min 3V* XR/XR wrist RT min 3V* [employer] Other XR wrist RT min 3V* IMPRESSION: [employer] Other XR wrist RT min 3V* NO SIGNIFICANT DURBIN E IN WRIST FINDINGS. [employer] Other XR wrist RT min 3V* Impression dictated by: Rainer Martinez Jr., D.OEstefany09/24/2022 4:36 PM [employer] Other XR wrist RT min 3V* Dictation Location: [place] [address] [employer] Other XR wrist RT min 3V* Transcribed By: GRACIE 09/24/22 1636 [employer] Other XR wrist RT min 3V* Dictated By: Rainer Martinez Jr, 09/24/22 1634 [employer] Other XR wrist RT min 3V* Signed By: [employer] Other XR wrist RT min 3V* 09/24/22 1636 No rt [employer] Other Urine culture routineOrdered By: Sammie Gonzalez on 07-31-2022 Bacteria identified Cx Nom (U) 2 Days [facility] Automated erythrocytes count in urine sediment (number/area)Ordered By: Sammie Gonzalez on 07-29-2022 RBC Auto (Urine sed) [#/Area] 3-4 [HPF] 0-4 [facility] Automated leukocytes count i n urine sediment (number/area)Ordered By: Sammie Gonzalez on 07-29-2022 WBC Auto (Urine sed) [#/Area] None seen [HPF] 0-4 [facility] Bilirubin Test strip Ql (U)O rdered By: Sammie Gonzalez on 07-29-2022 Bilirubin Ql (U) Negative Negative [facility] Color Auto (U)Ordered By: Do erik Gonzalez on 07-29-2022 Color (U) Yellow Yellow [facility] Ketones Auto test strip (U) [Mass/Vol]Ordered By: Sammie Gonzalez on 07-29-2022 Ketones (U) [Mass/Vol] Negative Negative [facility] - UrinalysisOrder ed By: Sammie Gonzalez on 07-29-2022 Hyaline casts LM Ql (Urine sed) None seen [LPF] 0-8 [facility] Nitrite Test strip Ql (U)Ord ered By: Sammie Gonzalez on 07-29-2022 Nitrite Ql (U) Negative Negative [facility] Protein Auto test strip (U) [Mass/Vol]Ordered By: Sammie Gonzalez on 07-29-2022 Protein (U) [Mass/Vol] Negative Negative [facility] Specific gravity Auto test s trip (U) [Rel density]Ordered By: Sammie Gonzalez on 07-29-2022 Specific gravity (U) [Rel density] 1.013 1.001-1.030 [facility] Squamous epithelial cells de tection in urine sediment by light microscopyOrdered By: Sammie Gonzalez on 07-29-2022 Epithelial cells.squamous LM Ql (Urine sed) None seen [HPF] 0-2 [facility] Urine bacteria detection by automated methodOrdered By: Sammie Gonzalez on 07-29-2022 Bacteria Auto Ql (U) None seen None Seen [facility] Urine clarity by refractomet ry automatedOrdered By: Sammie Gonzalez on 07-29-2022 Clarity Refractometry automated (U) Clear Clear [facility] Urine culture routineOrdered By: Sammie Gonzalez on 07-29-2022 Bacteria identified Cx Nom (U) 2 Days [facility] Urine glucose measurement by automated test strip (mass/volume)Ordered By: Sammie Gonzalez on 07-29-2022 Glucose Auto test strip (U) [Mass/Vol] >=1000 mg/dL Normal [facility] Urine hemoglobin detection b y automated test stripOrdered By: Sammie Gonzalez on 07-29-2022 Hemoglobin Auto test strip Ql (U) Trace Negative [facility] Urine leukocyte esterase det ection by automated test stripOrdered By: Sammie Gonzalez on 07-29-2022 Leukocyte esterase Auto test strip Ql (U) Negative Negative [facility] Urobilinogen Auto test strip (U) [Mass/Vol]Ordered By: Sammie Gonzalez on 07-29-2022 Urobilinogen (U) [Mass/Vol] Normal mg/dL Normal [facility] pH Auto test strip (U)Ordere d By: Sammie Gonzalez on 07-29-2022 pH (U) 6.0 [pH] 5.0-9.0 [facility] Albumin [Mass/volume] in Ser um or PlasmaOrdered By: Sammie Gonzalez on 05-01-2022 Albumin [Mass/Vol] 4.0 g/dL 3.2-5.5 [facility] Basophils Auto (Bld) [#/Vol] Ordered By: Sammie Gonzalez on 05-01-2022 Basophils (Bld) [#/Vol] 0.0 10*3/uL 0.0-0.2 [facility] Basophils/100 WBC Auto (Bld) Ordered By: Sammie Gonzalez on 05-01-2022 Basophils/100 WBC (Bld) 0.8 % . [facility] Blood hemoglobin measurement (mass/volume)Ordered By: Sammie Gonzalez on 05-01-2022 Hemoglobin (Bld) [Mass/Vol] 12.4 g/dL 11.8-15.4 [facility] Blood leukocytes automated c ount (number/volume)Ordered By: Sammie Gonzalez on 05-01-2022 WBC (Bld) [#/Vol] 6.0 10*3/uL 4.5-11.0 [facility] Cholesterol [Mass/volume] in Serum or PlasmaOrdered By: Sammie Gonzalez on 05-01-2022 Cholesterol [Mass/Vol] 189 mg/dL 140-200 [facility] Comment on above: Chol less than 200 m g/dl low risk Chol 201-239 mg/dl borderline risk Chol 240 mg/dl and greater high risk Chol less than 200 m g/dl low riskChol 201-239 mg/dl borderline riskChol 240 mg/dl and greater high risk Cholesterol in LDL Calc [Mas s/Vol]Ordered By: Sammie Gonzalez on 05-01-2022 Cholesterol in LDL [Mass/Vol] 92 mg/dL 0-100 [facility] Comment on above: LDL ATP III CLASSIFI CATION LDL less than 100 mg/dL Optimal LDL 100-129 mg/dL Near or above optimal LDL 130-159 mg/dL Borderline high LDL 160-189 mg/dL High LDL greater than 189 mg/dL Very high LDL ATP III CLASSIFI CATIONLDL less than 100 mg/dL OptimalLDL 100-129 mg/dL Near or above optimalLDL 130-159 mg/dL Borderline highLDL 160-189 mg/dL HighLDL greater than 189 mg/dL Very high Cholesterol in VLDL Calc [Ma ss/Vol]Ordered By: Sammie Gonzalez on 05-01-2022 Cholesterol in VLDL [Mass/Vol] 19 mg/dL [facility] Creatinine and Glomerular fi ltration rate.predicted panel (S/P/Bld)Ordered By: Sammie Gonzalez on 05-01-2022 Creatinine [Mass/Vol] 1.06 mg/dL 0.44-1.03 [facility] Eosinophils Auto (Bld) [#/Vo l]Ordered By: Sammie Gonzalez on 05-01-2022 Eosinophils (Bld) [#/Vol] 0.1 10*3/uL 0.0-0.45 [facility] Eosinophils/100 WBC Auto (Bl d)Ordered By: Samime Gonzalez on 05-01-2022 Eosinophils/100 WBC (Bld) 1.2 % . [facility] Erythrocyte distribution wid th Auto (RBC) [Ratio]Ordered By: Sammie Gonzalez on 05-01-2022 Erythrocyte distribution width (RBC) [Ratio] 13.7 % 11.9-15.3 [facility] Estimated glomerular filtrat ion rate (GFR) non- AmericanOrdered By: Sammie Gonzalez on 05-01-2022 GFR/1.73 sq M.predicted among non-blacks MDRD (S/P/Bld) [Vol rate/Area] 56 mL/Min [facility] Globulin Calc (S) [Mass/Vol] Ordered By: Sammie Gonzalez on 05-01-2022 Globulin (S) [Mass/Vol] 2.3 g/dL [facility] Glucose mean value [Mass/vol ume] in Blood Estimated from glycated hemoglobinOrdered By: Sammie Gonzalez on 05-01-2022 Average glucose Estimated from glycated hemoglobin (Bld) [Mass/Vol] 117 mg/dL [facility] Hematocrit Auto (Bld) [Volum e fraction]Ordered By: Sammei Gonzalez on 05-01-2022 Hematocrit (Bld) [Volume fraction] 38.4 % 34.0-46.4 [facility] Hemoglobin A1c percentageOrd ered By: Sammie Gonzalez on 05-01-2022 HbA1c (Bld) [Mass fraction] 5.7 % 4.3-5.6 [facility] Comment on above: Increased risk for d iabetes: 5.7 - 6.4 diabetes: >6.4 glycemic control for adults with diabetes: <7.0 Increased risk for d iabetes: 5.7 - 6.4diabetes: >6.4glycemic control for adults with diabetes: <7.0 Iron [Mass/volume] in Serum or PlasmaOrdered By: Sammie Gonzalez on 05-01-2022 Iron [Mass/Vol] 48 ug/dL 40-150 [facility] Laboratory - Chemistry and C hemistry - challengeOrdered By: Sammie Gonzalez on 05-01-2022 Natriuretic peptide B (Bld) [Mass/Vol] 7.0 pg/mL 5-100 [facility] - Hematology and Cell countsOrdered By: Sammie Gonzalez on 05-01-2022 Nucleated RBC/100 WBC (Bld) [Ratio] 0.0 % 0-0.5 [facility] Lymphocytes Auto (Bld) [#/Vo l]Ordered By: Sammie Gonzalez on 05-01-2022 Lymphocytes (Bld) [#/Vol] 1.4 10*3/uL 1.00-4.8 [facility] Lymphocytes/100 WBC Auto (Bl d)Ordered By: Sammie Gonzalez on 05-01-2022 Lymphocytes/100 WBC (Bld) 23.0 % . [facility] MCH Auto (RBC) [Entitic mass ]Ordered By: Sammie Gonzalez on 05-01-2022 MCH (RBC) [Entitic mass] 28.9 pg 24.7-34.3 [facility] MCHC Auto (RBC) [Mass/Vol]Or dered By: Sammie Gonzalez on 05-01-2022 MCHC (RBC) [Mass/Vol] 32.4 g/dL 32.0-35.0 [facility] MCV Auto (RBC) [Entitic vol] Ordered By: Sammie Gonzalez on 05-01-2022 MCV (RBC) [Entitic vol] 89.1 fL 80-100 [facility] Monocytes Auto (Bld) [#/Vol] Ordered By: Sammie Gonzalez on 05-01-2022 Monocytes (Bld) [#/Vol] 0.6 10*3/uL 0.0-0.8 [facility] Monocytes/100 WBC Auto (Bld) Ordered By: Sammie Gonzalez on 05-01-2022 Monocytes/100 WBC (Bld) 9.1 % . [facility] Neutrophils Auto (Bld) [#/Vo l]Ordered By: Sammie Gonzalez on 05-01-2022 Neutrophils (Bld) [#/Vol] 4.0 10*3/uL 1.8-7.7 [facility] Neutrophils/100 WBC Auto (Bl d)Ordered By: Sammie Gonzalez on 05-01-2022 Neutrophils/100 WBC (Bld) 65.9 % . [facility] No Panel InformationOrdered By: Sammie Gonzalez on 05-01-2022 Estimated GFR () > 60 mL/Min [facility] Comment on above: GFR estimated refere nce range: According to KDOQI guidelines, <60 ml/min/1.73m2 is sufficient to diagnose a patient with chronic kidney disease. Pharmacy Creatinine Clearance (Chem N/A [facility] Platelet mean volume Auto (B ld) [Entitic vol]Ordered By: Sammie Gonzalez on 05-01-2022 Platelet mean volume (Bld) [Entitic vol] 8.5 fL 6.3-10.7 [facility] Platelets Auto (Bld) [#/Vol] Ordered By: Sammie Gonzalez on 05-01-2022 Platelets (Bld) [#/Vol] 385 10*3/uL 150-450 [facility] Protein [Mass/volume] in Ser um or PlasmaOrdered By: Sammie Gonzalez on 05-01-2022 Protein [Mass/Vol] 6.3 g/dL 6.1-7.9 [facility] RBC Auto (Bld) [#/Vol]Ordere d By: Sammie Gonzalez on 05-01-2022 RBC (Bld) [#/Vol] 4.31 10*6/uL 3.60-5.00 [facility] Serum or plasma alanine bass otransferase measurement without P-5'-P (enzymatic activiOrdered By: Sammie Gonzalez on 05-01-2022 ALT No additional P-5'-P [Catalytic activity/Vol] 22 U/L 10-60 [facility] Serum or plasma albumin/glob ulin mass ratioOrdered By: Sammie Gonzalez on 05-01-2022 Albumin/Globulin [Mass ratio] 1.7 {ratio} [facility] Serum or plasma alkaline leela sphatase measurement (enzymatic activity/volume)Ordered By: Sammie Gonzalez on 05-01-2022 ALP [Catalytic activity/Vol] 52 U/L 32-92 [facility] Serum or plasma aspartate am inotransferase measurement (enzymatic activity/volume)Ordered By: Sammie Gonzalez on 05-01-2022 AST [Catalytic activity/Vol] 17 U/L 10-42 [facility] Serum or plasma calcium kiara urement (mass/volume)Ordered By: Sammie Gonzalez on 05-01-2022 Calcium [Mass/Vol] 9.5 mg/dL 8.2-10.2 [facility] Serum or plasma chloride aby surement (moles/volume)Ordered By: Sammie Gonzalez on 05-01-2022 Chloride [Moles/Vol] 100 mmol/L 95-114 [facility] Serum or plasma glucose kiara urement (mass/volume)Ordered By: Sammie Gonzalez on 05-01-2022 Glucose [Mass/Vol] 96 mg/dL 70-100 [facility] Comment on above: ADA recommended refe rence range Random Glucose Reference Range is dependent on time and content of last meal. Glucose of more than 200 mg/dL in a nonstressed, ambulatory subject supports the diagnosis of Diabetes Mellitus. ADA recommended refe rence rangeRandom Glucose Reference Range is dependent on time and content of last meal. Glucose of more than 200 mg/dL in a nonstressed, ambulatory subject supports the diagnosis of Diabetes Mellitus. Serum or plasma high density lipoprotein (HDL) cholesterol measurementOrdered By: Sammie Gonzalez on 05-01-2022 Cholesterol in HDL [Mass/Vol] 78 mg/dL 35-85 [facility] Comment on above: HDL CHOL ATP-III CLA SSIFICATION Cardiovascular Risk HDL > or equal to 60 mg/dL LOW HDL < 40 mg/dL HIGH HDL CHOL ATP-III CLA SSIFICATION Cardiovascular RiskHDL > or equal to 60 mg/dL LOWHDL < 40 mg/dL HIGH Serum or plasma potassium me asurement (moles/volume)Ordered By: Sammie Gonzalez on 05-01-2022 Potassium [Moles/Vol] 4.2 mmol/L 3.5-5.1 [facility] Serum or plasma sodium measu rement (moles/volume)Ordered By: Sammie Gonzalez on 05-01-2022 Sodium [Moles/Vol] 134 mmol/L 136-146 [facility] Serum or plasma thyroxine (T 4) measurement (mass/volume)Ordered By: Sammie Gonzalez on 05-01-2022 T4 [Mass/Vol] 9.20 ug/dL 5.39-11.82 [facility] Serum or plasma total biliru bin measurement (mass/volume)Ordered By: Sammie Gonzalez on 05-01-2022 Bilirubin [Mass/Vol] 0.4 mg/dL 0.3-1.2 [facility] Serum or plasma total carbon dioxide measurement (moles/volume)Ordered By: Sammie Gonzalez on 05-01-2022 CO2 [Moles/Vol] 24.2 mmol/L 22.0-30.0 [facility] Serum or plasma total choles terol/high density lipoprotein (HDL) cholesterol mass ratOrdered By: Sammie Gonzalez on 05-01-2022 Cholesterol.total/Tali sterol in HDL [Mass ratio] 2.4 {ratio} <5.0 [facility] Serum or plasma urea nitroge n measurement (mass/volume)Ordered By: Sammie Gonzalez on 05-01-2022 Urea nitrogen [Mass/Vol] 14 mg/dL 9-23 [facility] TSH DL <= 0.005 mIU/L QnOrde red By: Sammie Gonzalez on 05-01-2022 TSH Qn 3.07 m[IU]/L 0.45-5.33 [facility] Triglyceride [Mass/volume] i n Serum or PlasmaOrdered By: Sammie Gonzalez on 05-01-2022 Triglyceride [Mass/Vol] 97 mg/dL 35-149 [facility] Comment on above: TRIG ATP III CLASSIF ICATION TRIG less than 150 mg/dL Normal TRIG 150-199 mg/dL Borderline high TRIG 200-500 mg/dL High TRIG greater than 500 mg/dL Very high Standard traceable to the Center for Disease Conrtrol and Prevention (CDC) test method. TRIG ATP III CLASSIF ICATIONTRIG less than 150 mg/dL NormalTRIG 150-199 mg/dL Borderline highTRIG 200-500 mg/dL High TRIG greater than 500 mg/dL Very highStandard traceable to the Center for Disease Conrtrol and Prevention (CDC) test method. Triiodothyronine (T3) resin uptake testOrdered By: Sammie Gonzalez on 05-01-2022 T3RU 25 % 24-39 [facility] Comment on above: Performed at: [facility] [employer] [id number] [facility] Director: Maxim Daniel PhD, Phone: [phone] Performed at: [facility] [employer] [address] [id number] Director: Maxim Daniel PhD, Phone: [phone] XR wrist RT 2Von 01-24-2022 XR wrist RT 2V [facility] [employer] Other XR wrist RT 2V [facility] [employer] Other XR wrist RT 2V [address] [place] [address] [employer] Other XR wrist RT 2V [place] [id number] No rt [employer] Other XR wrist RT 2V XRay Report [employer] Other XR wrist RT 2V Signed [employer] Other XR wrist RT 2V Patient: Kourtney Novak MR#: [id number] [employer] Other XR wrist RT 2V [id number] [employer] Other XR wrist RT 2V : 1975 Acct:[id number] [employer] Other XR wrist RT 2V Age/Sex: 46 / F ADM Date: 01/24/22 [employer] Other XR wrist RT 2V Loc: SOXD Room: Type : [facility] [employer] Other XR wrist RT 2V Attending Dr: Naz Gomes MD [employer] Other XR wrist RT 2V Ordering Provider: Elyssa Gomes MD [employer] Other XR wrist RT 2V Date of Service: 01/24/22 [employer] Other XR wrist RT 2V XR/XR wrist RT 2V: Osteochondrosis of lunate of right wrist [employer] Other XR wrist RT 2V Copies to: Elyssa Gomes MD [employer] Other XR wrist RT 2V Right wrist 01/24/2022. [employer] Other XR wrist RT 2V CLINICAL DATA: Osteochondrosis of lunate of right wrist. [employer] Other XR wrist RT 2V FINDINGS: 2 views of the right wrist were obtained and are compared with a prior study 12/24/2021. [employer] Other XR wrist RT 2V No acute fracture or dislocation is identified. The lunate again appears sclerotic. This finding [employer] Other XR wrist RT 2V has not significantl y changed. No collapse is seen. No soft tissue swelling is visualized. [employer] Other XR wrist RT 2V XR/XR wrist RT 2V [employer] Other XR wrist RT 2V IMPRESSION: Scleroti c lunate, not significantly changed. [employer] Other XR wrist RT 2V Impression dictated by: Brody Marks Jr., M.D.01/24/2022 3:00 PM [employer] Other XR wrist RT 2V Dictation Location: [place] [address] [employer] Other XR wrist RT 2V Transcribed By: GRACIE 01/24/22 1500 [employer] Other XR wrist RT 2V Dictated By: Brody Marks Jr, MD 01/24/22 0067 [employer] Other XR wrist RT 2V Signed By: [employer] Other XR wrist RT 2V 01/24/22 1500 [facility] [employer] Other XR wrist RT min 3V*on 2021 XR wrist RT min 3V* [facility] [employer] Other XR wrist RT min 3V* [facility] [employer] Other XR wrist RT min 3V* [address] [place] [address] [employer] Other XR wrist RT min 3V* [place] [address] [employer] Other XR wrist RT min 3V* XRay Report [place] [employer] Other XR wrist RT min 3V* Signed [employer] Other XR wrist RT min 3V* Patient: Kourtney Novak MR#: [id number] [facility] [employer] Other XR wrist RT min 3V* [id number] [employer] Other XR wrist RT min 3V* : 1975 Acct:[id number] [employer] Other XR wrist RT min 3V* Age/Sex: 46 / F ADM Date: 11/20/21 [employer] Other XR wrist RT min 3V* Loc: SOXD Room: Type : [facility] [employer] Other XR wrist RT min 3V* Attending Dr: Naz Gomes MD [employer] Other XR wrist RT min 3V* Ordering Provider: Elyssa Gomes MD [employer] Other XR wrist RT min 3V* Date of Service: 11/20/21 [employer] Other XR wrist RT min 3V* XR/XR wrist RT min 3V*: Other specified postprocedural [employer] Other XR wrist RT min 3V* states;Osteochondros i s of nayeli [employer] Other XR wrist RT min 3V* Copies to: Elyssa Gomes MD [employer] Other XR wrist RT min 3V* 4 viewsRIGHT wrist plain film [employer] Other XR wrist RT min 3V* COMPARISON:None [employer] Other XR wrist RT min 3V* HISTORY: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 No collapse identified. Calculi metacarpal bones [employer] Other XR wrist RT min 3V* identified. No soft tissue abnormality seen. [employer] Other XR wrist RT min 3V* XR/XR wrist RT min 3V* [employer] Other XR wrist RT min 3V* IMPRESSION:Sclerotic changes of the lunate. Adequate bony alignment. No collapse. [employer] Other XR wrist RT min 3V* Impression dictated by: George Gray M.D.11/20/2021 3:59 PM [employer] Other XR wrist RT min 3V* Dictation Location: [place] [address] [employer] Other XR wrist RT min 3V* Transcribed By: PWS 11/20/21 1559 [employer] Other XR wrist RT min 3V* Dictated By: George Gray DO 11/20/21 1557 [employer] Other XR wrist RT min 3V* Signed By: [employer] Other XR wrist RT min 3V* 11/20/21 1559 No [employer] Other XR wrist RT min 3V*on 2020 XR wrist RT min 3V* [facility] [employer] Other XR wrist RT min 3V* [facility] [employer] Other XR wrist RT min 3V* [facility] [employer] Other XR wrist RT min 3V* [place] [address] [employer] Other XR wrist RT min 3V* XRay Report [place] [employer] Other XR wrist RT min 3V* Signed [employer] Other XR wrist RT min 3V* Patient: Kourtney Novak MR#: [id number] [employer] Other XR wrist RT min 3V* [id number] [employer] Other XR wrist RT min 3V* : 1975 Acct:[id number] [employer] Other XR wrist RT min 3V* Age/Sex: 45 / F ADM Date: 08/28/21 [employer] Other XR wrist RT min 3V* Loc: SOX Room: Type : [facility] [employer] Other XR wrist RT min 3V* Attending Dr: Naz Gomes MD [employer] Other XR wrist RT min 3V* Ordering Provider: Elyssa Gomes MD [employer] Other XR wrist RT min 3V* Date of Service: 08/28/21 [employer] Other XR wrist RT min 3V* XR/XR wrist RT min 3V*: M92.211 [employer] Other XR wrist RT min 3V* Copies to: Elyssa Gomes MD [employer] Other XR wrist RT min 3V* RIGHT WRIST - 4 views [employer] Other XR wrist RT min 3V* CLINICAL DATA: Right wrist pain and decreased range of motion. No injury. [employer] Other XR wrist RT min 3V* COMPARISON: 11/15/2020 and MRI 11/15/2020 [employer] Other XR wrist RT min 3V* AP, lateral, oblique and ulnar deviation views were obtained. There is no acute fracture or [employer] Other XR wrist RT min 3V* dislocation. Minor sclerosis is again seen at the lunate where there is also subchondral cystic [employer] Other XR wrist RT min 3V* change medially. Thi s is similar to the prior. There is no developing joint space narrowing or [employer] Other XR wrist RT min 3V* hypertrophy. No prominent soft tissue swelling is noted. [employer] Other XR wrist RT min 3V* XR/XR wrist RT min 3V* [employer] Other XR wrist RT min 3V* IMPRESSION: [employer] Other XR wrist RT min 3V* BONY CHANGES AT THE LUNATE, SIMILAR TO THE COMPARISON. [employer] Other XR wrist RT min 3V* NO ACUTE FINDINGS. [employer] Other XR wrist RT min 3V* Impression dictated by: Trixie Irizarry M.D.08/28/2021 4:42 PM [employer] Other XR wrist RT min 3V* Dictation Location: [place] [address] [employer] Other XR wrist RT min 3V* Transcribed By: GRACIE 08/28/21 1642 [employer] Other XR wrist RT min 3V* Dictated By: Trixie Irizarry MD 08/28/21 1639 [place] [employer] Other XR wrist RT min 3V* Signed By: [employer] Other XR wrist RT min 3V* 08/28/21 1642 No rt [employer] Other XR FOOT 3V AP/LAT/OBL BILon 03-04-2021 XR FOOT 3V AP/LAT/OBL TODD * * *Final Report* * * DATE OF EXAM: Mar 04 2021 1:14PM VHX 5555 - XR FOOT 3V AP/LAT/OBL TODD / PROCEDURE REASON: Pain in joint, multiple sites * * * * Physician Interpretation * * * * HISTORY: Pain in joint, multiple sites . PAIN IN JOINT, MULTIPLE SITES, POSSIBLE TENDONITIS PER PT TECHNIQUE: XR FOOT 3V AP/LAT/OBL TODD Laterality: BILATERAL Number of different views (projections): 3 EACH COMPARISON: None RESULT: Joint spaces and alignment normal. No evidence of a fracture. Mild remote deformity of the left fifth metatarsal shaft probably sequela of remote healed fracture. Normal soft tissues. No other significant abnormality. --- IMPRESSION: NORMAL Echocardiologist: GUANACO Transcribe Date/Time: Mar 04 2021 2:52P Dictated by : TOBI HERRMANN MD This examination was interpreted and the report reviewed and electronically signed by: TOBI HERRMANN MD on Mar 04 2021 2:57PM EST [id number] [facility] XR HAND 3V PA/LAT/OBL BILon 03-04-2021 XR HAND 3V PA/LAT/OBL TODD * * *Final Report* * * DATE OF EXAM: Mar 04 2021 1:14PM VHX [id number] - XR HAND 3V PA/LAT/OBL TODD / PROCEDURE REASON: Pain in joint, multiple sites * * * * Physician Interpretation * * * * HISTORY: Pain in joint, multiple sites . PAIN IN JOINT, MULTIPLE SITES, POSSIBLE TENDONITIS PER PT TECHNIQUE: XR HAND 3V PA/LAT/OBL TODD Laterality: BILATERAL Number of different views (projections): 3 EACH COMPARISON: None RESULT: Chronic deformity of the left distal radius compatible with a remote healed fracture. 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 No evidence of an acute fracture. Joint spaces and alignment normal. No erosions. Mild increased sclerosis and articular surface irregularity of the right lunate likely sequela of degenerative changes/ulnar impaction. Normal soft tissues. No other significant abnormality. --- IMPRESSION: NO ACUTE OSSEOUS ABNORMALITY REMOTE FRACTURES OF THE LEFT WRIST DESCRIBED Echocardiologist: GUANACO Transcribe Date/Time: Mar 04 2021 2:57P Dictated by : TOBI HERRMANN MD This examination was interpreted and the report reviewed and electronically signed by: TOBI HERRMANN MD on Mar 04 2021 2:59PM EST [id number] [facility] Vital Signs Date Time Vital Sign Value Performing Clinician Facility 05-30-2024 09:38-0400 Body mass index (BMI) [Ratio] 40.61 kg/m2 Zeinab Wood MD Work Phone: [facility] 05-30-2024 09:38-0400 Body weight 109 kg Zeinab Wood MD Work Phone: [facility] 05-30-2024 09:38-0400 Diastolic blood pressure 72 mm[Hg] Zeinab Wood MD Work Phone: [facility] 05-30-2024 09:38-0400 Heart rate 87 /min Zeinab Wood MD Work Phone: [facility] 05-30-2024 09:38-0400 Respiratory rate 18 /min Zeinab Wood MD Work Phone: [facility] 05-30-2024 09:38-0400 Systolic blood pressure 109 mm[Hg] Zeinab Wood MD Work Phone: [facility] 06-30-2023 10:52-0400 Body height 164 cm Erik Pineda MD Work Phone: [facility] 06-30-2023 10:52-0400 Body temperature 98.71 [degF] Erik Pineda MD Work Phone: [facility] 06-30-2023 10:52-0400 Body weight 101.88 kg Erik Pineda MD Work Phone: [facility] 06-30-2023 10:52-0400 Diastolic blood pressure 58 mm[Hg] Erik Pineda MD Work Phone: [facility] 06-30-2023 10:52-0400 Heart rate 103 /min Erik Pineda MD Work Phone: [facility] 06-30-2023 10:52-0400 Respiratory rate 18 /min Erik Pineda MD Work Phone: [facility] 06-30-2023 10:52-0400 SaO2% (BldA) [Mass fraction] 97 % Erik Pineda MD Work Phone: [facility] 06-30-2023 10:52-0400 Systolic blood pressure 117 mm[Hg] Erik Pineda MD Work Phone: [facility] 05-06-2023 07:10-0400 Body height 165.1 cm MD Sammie Gonzalez Work Phone: [facility] 05-06-2023 07:10-0400 Body weight 102.05 kg MD Sammie Gonzalez Work Phone: [facility] 03-31-2023 09:30-0400 Body height 165.1 cm Russell Shields Other [employer] Other 03-31-2023 09:30-0400 Body mass index (BMI) [Ratio] 36.94 kg/m2 Russell Shields Other [employer] Other 03-31-2023 09:30-0400 Body weight 100.7 kg Russell Shields Other [employer] Other 03-31-2023 09:30-0400 Diastolic blood pressure 68 mm[Hg] Russell Shields Other [employer] Other 03-31-2023 09:30-0400 Systolic blood pressure 109 mm[Hg] Russell Shields Other [employer] Other 09-29-2022 15:28-0500 Body weight 114.08 kg Zeinab Wood MD Work Phone: [facility] 09-29-2022 15:28-0500 Diastolic blood pressure 56 mm[Hg] Zeinab Wood MD Work Phone: [facility] 09-29-2022 15:28-0500 Heart rate 99 /min Zeinab Wood MD Work Phone: [facility] 09-29-2022 15:28-0500 Systolic blood pressure 115 mm[Hg] Zeinab Wood MD Work Phone: [facility] 07-17-2022 15:45-0400 Body height 165.1 cm Beti Bowles Other [employer] Other 03-31-2022 14:00-0400 Body height 165.1 cm Beti Bowles Other [employer] Other 03-31-2022 14:00-0400 Body mass index (BMI) [Ratio] 39.6 kg/m2 Beti Bowles Other [employer] Other 03-31-2022 14:00-0400 Body weight 107.96 kg Beti Bowles Other [employer] Other 01-27-2022 14:15-0400 Body height 165.1 cm Beti Bowles Other [employer] Other 01-27-2022 14:15-0400 Body mass index (BMI) [Ratio] 39.93 kg/m2 Beti [facility] Other [employer] Other 01-27-2022 14:15-0400 Body weight 108.86 kg Beti [facility] Other [employer] Other 01-20-2022 11:03-0400 Body height 165.1 cm Zeinab Wood MD Work Phone: [facility] 01-20-2022 11:03-0400 Body weight 104.06 kg Zeinab Wood MD Work Phone: [facility] 01-20-2022 11:03-0400 Diastolic blood pressure 67 mm[Hg] Zeinab Wood MD Work Phone: [facility] 01-20-2022 11:03-0400 Heart rate 108 /min Zeinab Wood MD Work Phone: [facility] 01-20-2022 11:03-0400 Systolic blood pressure 113 mm[Hg] Zeinab Wood MD Work Phone: [facility] 11-20-2021 16:15-0500 Body height 165.1 cm Elyssa Gomes Other [employer] Other 11-20-2021 16:15-0500 Body mass index (BMI) [Ratio] 39.93 kg/m2 Elyssamaxine Gomes Other [employer] Other 11-20-2021 16:15-0500 Body weight 108.86 kg Elyssamaxine Gomes Other [employer] Other 10-08-2021 15:15-0500 Body height 165.1 cm Elyssa Calvmary Other [employer] Other 10-08-2021 15:15-0500 Body mass index (BMI) [Ratio] 39.43 kg/m2 Elyssa Gomes Other [employer] Other 10-08-2021 15:15-0500 Body weight 107.5 kg Elyssa Gomes Other [employer] Other 08-28-2021 16:15-0500 Body height 165.1 cm Elyssa Gomes Other [employer] Other 08-28-2021 16:15-0500 Body mass index (BMI) [Ratio] 38.77 kg/m2 Elyssa Gomes Other [employer] Other 08-28-2021 16:15-0500 Body weight 105.69 kg Elyssa Gomes Other [employer] Other Encounters Encounter Date Encounter Type Care Provider Facility Start: 05-30-2024 End: 05-30-2024 ambulatory SAMMIE GONZALEZ Facility:[facility] Start: 05-30-2024 End: 05-30-2024 Patient encounter procedure Zeinab Wood MD Work Phone: Rheumatology Comment on above: Inflammatory arthrit is (Primary Dx); Fibromyalgia; Medication monitoring encounter Start: 05-25-2024 End: 05-26-2024 Refill Rachele Fenton APRN.CNP Work Phone: [facility] Comment on above: Refill Request Start: 05-12-2024 End: 05-12-2024 Patient encounter procedure MD Sammie Gonzalez Work Phone: [facility] Start: 05-12-2024 End: 05-12-2024 ambulatory MD Sammie Gonzalez Work Phone: [facility] Work Phone: Start: 04-25-2024 End: 04-25-2024 ambulatory Ridge Hollingsworth MD Facility:[facility] Start: 03-25-2024 Refill Zeinab Wood MD Work Phone: Rheumatology Comment on above: Refill Request Start: 03-21-2024 ambulatory Mohammad Hamda n LINE INSTALLER REPAIRER.REBAR BENDER Work Phone: [facility] Comment on above: Robaxin Start: 03-18-2024 ambulatory Mohammad Hamda n LINE INSTALLER REPAIRER.REBAR BENDER Work Phone: [facility] Comment on above: Insurance Start: 03-08-2024 Telephone encounter Erik martinez MD Work Phone: [facility] [place] Comment on above: epidural steroid inj ection Start: 03-07-2024 End: 03-07-2024 ambulatory Ridge Hollingsworth MD Facility:[facility] Start: 03-04-2024 End: 03-04-2024 ambulatory MD Sammie Gonzalez Work Phone: [facility] Work Phone: Start: 03-04-2024 End: 03-04-2024 Patient encounter procedure MD Sammie Gonzalez Work Phone: [facility] Work Phone: Start: 02-15-2024 End: 02-15-2024 Patient encounter procedure MD Sammie Gonzalez Work Phone: [facility] [place] Work Phone: Start: 02-15-2024 End: 02-15-2024 ambulatory MD Sammie Gonzalez Work Phone: [facility] Work Phone: Start: 02-10-2024 Telephone encounter Rachele acevedo LINE INSTALLER REPAIRER.REBAR BENDER Work Phone: Neurology Comment on above: Insurance Authorizat ion; Robaxin [place] - [employer] / [employer]. Start: 02-09-2024 End: 02-09-2024 Patient encounter procedure MD Sammie Gonzalez Work Phone: [facility] [address] Work Phone: Start: 02-09-2024 End: 02-09-2024 ambulatory MD Sammie Gonzalez Work Phone: [facility] Work Phone: Start: 02-05-2024 End: 02-05-2024 ambulatory Rachele Fenton LINE INSTALLER REPAIRER.REBAR BENDER Work Phone: [facility] Comment on above: Meningioma (HCC) (Pr imary Dx); Chronic daily headache Start: 02-05-2024 End: 02-05-2024 Telemedicine consultation with patient Rachele Fenton LINE INSTALLER REPAIRER.REBAR BENDER Work Phone: [facility] Start: 02-02-2024 End: 02-02-2024 ambulatory SAMMIE GONZALEZ [facility] Comment on above: Intracranial meningi sera (HCC) (Primary Dx) Start: 02-02-2024 End: 02-02-2024 Telemedicine consultation with patient Fellow Appointments Work Phone: [facility] [place] Start: 02-02-2024 Telephone encounter Mario Alberto Phillips RN [facility] [place] Comment on above: Appointment Start: 02-01-2024 End: 02-01-2024 ambulatory YOLA CARABALLO Not Available Start: 01-30-2024 Refill Fahad Luong MD Work Phone: [facility] Comment on above: Refill Request Start: 01-29-2024 ambulatory ERIK Hua y:[facility] Start: 01-29-2024 End: 01-29-2024 Subsequent hospital visit by physician [facility] Work Phone: [facility] Comment on above: 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 eninges (HCC) [D32.9] Start: 01-27-2024 Refill Zeinab Wood MD Work Phone: Rheumatology Comment on above: Refill Request Start: 01-26-2024 End: 01-26-2024 Patient encounter procedure MD Sammie Gonzalez Work Phone: [facility] Physician [facility] Work Phone: Start: 01-19-2024 Telephone encounter Mario Alberto Phillips RN [facility] Comment on above: Schedule Surgery ([place] rgery Planning ) Start: 01-08-2024 End: 01-08-2024 Patient encounter procedure MD Sammie Gonzalez Work Phone: [facility] Start: 01-08-2024 End: 01-08-2024 ambulatory MD Sammie Gonzalez Work Phone: [facility] Work Phone: Start: 01-05-2024 Telephone encounter Mario Alberto Phillips RN [facility] Comment on above: Schedule Surgery Start: 01-04-2024 Telephone encounter Zeinab kenyon MD Work Phone: Rheumatology Comment on above: Lab Orders/FAX Start: 12-20-2023 End: 12-20-2023 ambulatory WANDY Curran ALAN Not Available Start: 11-29-2023 Refill Zeinab Wood MD Work Phone: Rheumatology Comment on above: Refill Request Start: 11-25-2023 End: 11-25-2023 Patient encounter procedure MD Sammie Gonzalez Work Phone: [facility] Work Phone: Start: 11-12-2023 Refill Zeinab Wood MD Work Phone: Rheumatology Comment on above: Refill Request Start: 11-11-2023 Telephone encounter Mario Alberto Phillips RN [facility] Comment on above: Care Coordination (f ollow up) Start: 11-11-2023 End: 11-11-2023 Patient encounter procedure MD Sammie Gonzalez Work Phone: [facility] Start: 11-11-2023 End: 11-11-2023 ambulatory Sammie Gonzalez Facility:[facility] Start: 11-10-2023 Refill Zeinab Wood MD Work Phone: Rheumatology Comment on above: Refill Request Start: 11-09-2023 Refill Zeinab Wood MD Work Phone: Rheumatology Comment on above: Refill Request Start: 09-28-2023 End: 09-28-2023 ambulatory ZEINAB WOOD Facility:[facility] Start: 07-05-2023 Admission to [facility] Erik Pineda MD Work Phone: [facility] Comment on above: Surgery Start: 07-05-2023 ambulatory Erik castañeda MD Work Phone: [facility] Start: 07-02-2023 Telephone encounter Erik martinez MD Work Phone: [facility] Comment on above: Patient Update (Disc uss Surgery March 2024) Start: 06-30-2023 End: 06-30-2023 ambulatory [facility] Facility:[facility] Start: 06-30-2023 End: 06-30-2023 Patient encounter procedure Erik Pineda MD Work Phone: [facility] Comment on above: Intracranial meningi sera (HCC) (Primary Dx) Start: 06-26-2023 End: 06-26-2023 ambulatory [facility] Facility:[facility] Start: 06-26-2023 End: 06-26-2023 Office outpatient new 45 minutes Fahad Luong MD Work Phone: Neurology Headache [facility] Comment on above: Medication overuse h eadache (Primary Dx); Brain mass; Meningioma (HCC); Chronic daily headache Start: 06-01-2023 End: 06-01-2023 ambulatory [facility] Facility:[facility] Start: 05-22-2023 End: 05-22-2023 ambulatory MD Sammie Gonzalez Work Phone: [facility] Work Phone: Start: 05-22-2023 End: 05-22-2023 Patient encounter procedure MD Sammie Gonzalez Work Phone: [facility] Start: 05-13-2023 Telephone encounter Moira thayer APRN.REBAR BENDER Work Phone: [facility] Comment on above: TRIAGE Start: 05-06-2023 End: 05-06-2023 ambulatory MD Sammie Gonzalez Work Phone: [facility] Work Phone: Start: 05-06-2023 End: 05-06-2023 Patient encounter procedure MD Sammie Gonzalez Work Phone: [facility] [place] Work Phone: Start: 04-29-2023 End: 04-29-2023 ambulatory MD Sammie Gonzalez Work Phone: [facility] Work Phone: Start: 04-29-2023 End: 04-29-2023 Patient encounter procedure MD Sammie Gonzalez Work Phone: [facility] Work Phone: Start: 04-15-2023 End: 04-15-2023 ambulatory MD Sammie Gonzalez Work Phone: [facility] Work Phone: Start: 04-15-2023 End: 04-15-2023 Patient encounter procedure MD Sammie Gonzalez Work Phone: [facility] Start: 04-13-2023 Refill Zeinab Wood MD Work Phone: Rheumatology Comment on above: Refill Request Start: 04-13-2023 Refill Zeinab Wood MD Work Phone: Rheumatology Comment on above: Refill Request Start: 04-06-2023 End: 04-06-2023 Patient encounter procedure MD Sammie Gonzalez Work Phone: [facility] Work Phone: Start: 03-31-2023 End: 03-31-2023 ambulatory Russell Shields Other [employer] Other Start: 03-31-2023 Patient encounter procedure Russell Alyson [facility] Start: 03-07-2023 Refill Zeinab Wood MD Work Phone: Rheumatology Comment on above: Refill Request Start: 01-18-2023 Refill Zeinab Wood MD Work Phone: Rheumatology Comment on above: Refill Request Start: 12-17-2022 End: 12-17-2022 ambulatory Elyssa Gomes Other [employer] Other Start: 12-17-2022 Office outpatient visit 15 minutes Elyssa Gomes [facility] Start: 12-11-2022 ambulatory Zeinab Wood MD Work Phone: Rheumatology Comment on above: Fibro Start: 10-10-2022 End: 10-11-[address] SAMMIE GONZALEZ Facility:[facility] Start: 09-29-2022 End: 09-29-2022 Patient encounter procedure Zeinab Wood MD Work Phone: Rheumatology Comment on above: Inflammatory arthrit is (Primary Dx); Myalgia; Fibromyalgia Start: 09-29-2022 Telephone encounter Zeinab kenyon MD Work Phone: Rheumatology Comment on above: Orders (Plaquenil) Start: 09-24-2022 End: 09-24-2022 Patient encounter procedure MD Sammie Gonzalez Work Phone: [facility] Start: 09-24-2022 End: 09-24-2022 ambulatory MD Sammie Gonzalez Work Phone: [facility] Work Phone: Start: 09-24-2022 Office outpatient visit 15 minutes Elyssa Calvey [facility] Start: 08-05-2022 Office outpatient visit 15 minutes Elyssa Calvmary [facility] Start: 08-05-2022 End: 08-05-2022 ambulatory MD Sammie Gonzalez Work Phone: [facility] Work Phone: Start: 08-05-2022 End: 08-05-2022 Patient encounter procedure MD Sammie Gonzalez Work Phone: [facility] Start: 07-29-2022 End: 07-29-2022 ambulatory MD Sammie Gonzalez Work Phone: [facility] Work Phone: Start: 07-29-2022 End: 07-29-2022 Patient encounter procedure [facility] Start: 07-17-2022 End: 07-17-2022 ambulatory Beti Bowles Other [employer] Other Start: 07-17-2022 Office outpatient visit 15 minutes Beti Bowles [facility] Start: 06-25-2022 End: 06-25-2022 ambulatory Beti Bowles Other [employer] Other Start: 06-25-2022 Office outpatient visit 15 minutes Beti Bowles [facility] Start: 05-10-[address] SAMMIE GONZALEZ Facility : Start: 05-06-2022 End: 05-06-2022 Patient encounter procedure MD Sammie Gonzalez Work Phone: [facility] Start: 05-01-2022 End: 05-01-2022 Patient encounter procedure MD [facility] Start: 03-31-2022 End: 03-31-2022 ambulatory Beti Bowles Other [employer] Other Start: 03-31-2022 Office outpatient visit 15 minutes Beti Bowles [facility] Start: 03-21-2022 End: 03-21-2022 Discharged Recurring MD Sammie Gonzalez Work Phone: [facility] Start: 01-27-2022 End: 01-27-2022 ambulatory Beti Bowles Other [employer] Other Start: 01-27-2022 Office outpatient visit 15 minutes Beti Bowles [facility] Start: 01-24-2022 End: 01-24-2022 ambulatory Elyssa Calvey Other [employer] Other Start: 01-24-2022 Office outpatient visit 15 minutes Elyssa Calvey [facility] Start: 01-20-2022 End: 01-20-2022 ambulatory Beti Bowles Other [employer] Other Start: 01-20-2022 Office outpatient visit 15 minutes Beti Bowles [facility] Start: 01-20-2022 End: 01-20-2022 Patient encounter procedure Zeinab Wood MD Work Phone: Rheumatology Comment on above: Inflammatory arthrit is (Primary Dx); Myalgia Start: 12-24-2021 End: 12-24-2021 ambulatory Elyssa Calvey Other [employer] Other Start: 12-24-2021 Postop follow up visit related to original px Elyssa Calvey [facility] Start: 12-19-2021 End: 12-19-2021 ambulatory Beti Bowles Other [employer] Other Start: 12-19-2021 Telephone encounter Beti Bowles [facility] Start: 12-02-2021 End: 12-02-2021 ambulatory Beti Bowles Other [employer] Other Start: 12-02-2021 Office outpatient visit 15 minutes Beti Bowles [facility] Start: 11-20-2021 End: 11-20-2021 ambulatory Elyssa Calvey Other [employer] Other Start: 11-20-2021 Postop follow up visit related to original px Elyssa Calvey [facility] Start: 10-08-2021 End: 10-08-2021 ambulatory Elyssa Calvey Other [employer] Other Start: 10-08-2021 Office outpatient visit 25 minutes Elyssa Cesarey [facility] Start: 08-28-2021 End: 08-28-2021 ambulatory Elyssa Calvey Other [employer] Other Start: 08-28-2021 Office outpatient visit 25 minutes Elyssa Cesarey [facility] Start: 08-12-2021 End: 08-12-2021 ambulatory Elyssa Calvey Other [employer] Other Start: 08-12-2021 Telephone encounter Elyssa Calvey [facility] Start: 06-18-2021 Office outpatient visit 15 minutes Elyssa Calvey [facility] Start: 06-05-2021 Office outpatient visit 15 minutes Beti Bowles [facility] Start: 05-11-2017 End: 05-12-2017 Ambulatory DEFAULT PHYSICIAN Facility:[facility] Procedures Date Procedure Procedure Detail Performing Clinician Start: 02-15-2024 US scan of thyroid MD Macrina Gonzalez Work Phone: Start: 02-09-2024 XR pre/post mri xray MD Sammie Gonzalez Work Phone: Start: 02-09-2024 MR lumbar spine wo con MD Sammie Gonzalez Work Phone: Start: 02-09-2024 MRI of cervical spin e without contrast MD Sammie Gonzalez Work Phone: Start: 05-06-2023 MRI of head MD Sammie Gonzalez Work Phone: Start: 04-29-2023 Screening mammograph y of bilateral breasts MD Sammie Gonzalez Work Phone: Start: 04-06-2023 Radionuclide gastric emptying study MD Sammie Gonzalez Work Phone: Start: 09-24-2022 Plain X-ray of right wrist MD Sammie Gonzalez Work Phone: Start: 08-05-2022 Plain X-ray of right wrist MD Sammie Gonzalez Work Phone: Start: 07-29-2022 Urine culture MD Lawson Gonzalez Work Phone: Start: 05-06-2022 Plain X-ray of right wrist MD Sammie Gonzalez Work Phone: Start: 03-01-2021 Adult depression scr eening assessment Zeinab Wood MD Work Phone: Urine culture MD Sammie Gonzalez Work Phone: Plan of Treatment Date Care Activity Detail Author Start: 12-28-2024 End: 12-28-2024 Patient encounter procedure 12/28/2024 9:20 AM EDT Office Visit Rheumatology [address] [place] [address] Zeinab Wood MD [address] [place], [place] [id number] 6 month follow up Rheumatology Comment on above: 6 month follow up Start: 05-30-2024 End: 05-30-2024 Patient encounter procedure 05/30/2024 9:40 AM EDT Office Visit Rheumatology [address] [place] [address] Zeinab Wood MD [address] [place] [address] Return in about 8 months (around 05/29/2024) for arthralgias, FM . Rheumatology Comment on above: Return in about 8 mo nths (around 05/29/2024) for arthralgias, FM . Start: 05-15-2024 Covid-19 Vaccine () Covid-19 Vaccine () [facility] Start: 05-15-2024 Influenza vaccination [facility] Start: 04-04-2024 End: 04-04-2024 Admission to same day surgery center 04/04/2024 7:30 AM EDT - 04/04/2024 2:30 PM EDT Surgery Admitting [address] [place] [address] Erik Pineda MD [address] [place] [address] ORBITOCRANIAL TO ANT CRAN FOSSA W/ SUPRAORB RIDGE OSTEOTOMY & ELEV FRONT&TEMP LOBE Admitting Comment on above: ORBITOCRANIAL TO ANT CRAN FOSSA W/ SUPRAORB RIDGE OSTEOTOMY & ELEV FRONT&TEMP LOBE Start: 04-04-2024 End: 04-04-2024 Orbitocranial ant cranial fossa w/o orbit exntj ORBITOCRANIAL TO ANT CRAN FOSSA W/ SUPRAORB RIDGE OSTEOTOMY & ELEV FRONT&TEMP LOBE Intracranial meningioma (HCC) Preop testing 04/04/2024 7:30 AM EDT [facility] Start: 04-04-2024 End: 04-04-2024 Rescj/exc les base ant crnl fossa indrl w/wo grf RESECTION LESION BASE OF ANTERIOR CRANIAL FOSSA INTRADURAL W/ DURAL REPAIR Intracranial meningioma (HCC) Preop testing 04/04/2024 7:30 AM EDT [facility] Start: 04-04-2024 Subsequent hospital visit by physician 04/04/2024 7:30 AM EDT Hospital Encounter Admitting [address] [place] [address] Erik Pineda MD [address] [place] [address] Intracranial meningioma (HCC) [D32.0] Admitting Comment on above: Intracranial meningi sera (HCC) [D32.0] Start: 03-22-2024 End: 03-22-2024 Patient encounter procedure Pre Anesthesia Comment on above: Preop, ORBITOCRANIAL TO ANT CRAN FOSSA W/ SUPRAORB RIDGE OSTEOTOMY & ELEV FRONT&TEMP LOBE Preop lab and nasal swab Start: 03-04-2024 DIABETES SCREEN DIABETES SCREEN [facility] Start: 03-04-2024 Diabetes Screening Diabetes Screenin g [facility] Start: 02-05-2024 End: 02-05-2024 ambulatory 02/05/2024 7:00 AM EDT [facility] Neurology Headache [facility] [address] [place] [address] Rachele Fenton, MARILEE.REBAR BENDER [address] [place] [address] f/u Neurology Headache [facility] Comment on above: f/u Start: 01-29-2024 End: 01-29-2024 Patient encounter procedure [facility] Comment on above: R Sphenoid Wing Meni ngioma Start: 01-21-2024 End: 01-21-2024 ambulatory 01/21/2024 2:30 PM EDT [facility] [place] [address] [place] [address] Montse Lou DO, PhD [address] [place] [address] Check up for headaches [facility] [place] Comment on above: Check up for headach es Start: 09-14-2023 Behavioral Health Screening Behavioral Health Screening [facility] Start: 09-14-2023 Depression Assessment Depression Ass essment [facility] Start: 05-15-2023 Covid-19 Vaccine () Covid-19 Vaccine () [facility] Start: 05-15-2023 Influenza vaccination [facility] Start: 2022 COLOGUARD (FIT-DNA) COLOGUARD (FIT-D NA) [facility] Start: 2022 Colonoscopy COLONOSCOPY [facility] Start: 2022 COLORECTAL CANCER SCREENING COLORECTAL CANCER SCREENING [facility] Start: [address] COLONOGRAPHY [facility] Start: 2022 FECAL OCCULT BLOOD FECAL OCCULT BLOO D [facility] Start: 2022 Lipid 1996 panel - Serum or Plasma Lipid Screening [facility] Start: 2022 Lipid panel Lipid Screening [facility] Start: 2022 LIPID SCREEN LIPID SCREEN [facility] Start: 2022 Screening for malign ant neoplasm of colon [facility] Start: 2022 SIGMOIDOSCOPY SIGMOIDOSCOPY [facility] Start: 09-14-2022 DEPRESSION ASSESSMENT DEPRESSION ASS ESSMENT [facility] Start: 05-06-2022 Plain X-ray of right wrist XR wrist RT min 3V* [facility] Start: 05-06-2022 End: 05-06-2022 Patient encounter procedure Departed [facility] Start: 05-01-2022 End: 05-01-2022 Patient encounter procedure Departed [facility] [place] Start: 03-01-2022 Adult depression screening assessment DEPRESSION SCREENING [facility] Start: 07-04-2021 Urine microalbumin profile DTaP,Tdap,Td Vaccine (1 - Tdap) [facility] Start: 03-21-2021 COVID-19 VACCINE (3 - Booster for Pfizer series) COVID-19 VACCINE (3 - Booster for Pfizer series) [facility] Start: 03-21-2021 COVID-19 VACCINE (3 - Pfizer series) COVID-19 VACCINE (3 - Pfizer series) [facility] Start: 02-21-2021 COVID-19 VACCINE (3 - Pfizer risk 4-dose series) COVID-19 VACCINE (3 - Pfizer risk 4-dose series) [facility] Start: 02-21-2021 COVID-19 VACCINE (3 - Pfizer risk series) COVID-19 VACCINE (3 - Pfizer risk series) [facility] Start: 2017 Mammography [facility] Start: 2017 Screening for malign ant neoplasm of breast Mammogram Screening [facility] Start: 2007 HPV TESTING HPV TESTING [facility] Start: 2007 Screening for malign ant neoplasm of cervix HPV Testing [facility] Start: 1998 PAP TESTING PAP TESTING [facility] Start: 1998 Screening for malign ant neoplasm of cervix [facility] Start: 1996 Hepatitis B Vaccine (1 of 3 - 19+ 3-dose series) Hepatitis B Vaccine (1 of 3 - 19+ 3-dose series) [facility] Start: 1996 SHINGRIX VACCINE (1 of 2) SHINGRIX VACCINE (1 of 2) [facility] Start: 1996 Urine microalbumin profile [facility] Start: 1995 Anxiety Screening Anxiety Screening [facility] Start: 1995 Depression Screening Depression Scre ening [facility] Start: 1983 PNEUMOCOCCAL (1 - PCV) PNEUMOCOCCAL (1 - PCV) [facility] Start: 1977 HEPATITIS B (1 of 3 - 3-dose series) HEPATITIS B (1 of 3 - 3-dose series) [facility] Start: 1977 Hepatitis B Vaccine (1 of 3 - 3-dose series) Hepatitis B Vaccine (1 of 3 - 3-dose series) [facility] Bacteria identified in Urine by Culture Urine Culture [facility] Insulin [Units/volum e] in Serum or Plasma [facility] MR Skull base WO and W contrast IV MRI SKULL BASE WO/W IVCON Radiology Routine Benign neoplasm of meninges (HCC) 01/29/2024 1:56 PM EDT [facility] Work Phone: [facility] Immunizations Immunization Date Immunization Notes Care Provider Huseyin beard 06-18-2022 influenza virus vaccine, unspecified formulation Fahad Luong MD Work Phone: [facility] 05-15-2021 Kenalog -40 mg Beti rice Other [employer] Other 04-10-2021 Kenalog -40 mg Beti Kear dwayne Other [employer] Other 01-24-2021 COVID-19 mRNAAguilarirnatpiedad (Pfizer) MD Sammie Gonzalez Work Phone: [facility] 01-02-2021 COVID-19 mRNAAguilrairnatpiedad (Pfizer) MD Sammie Gonzalez Work Phone: [facility] 11-15-2020 Kenalog -40 mg Beti Kear dwayne Other [employer] Other 03-08-2020 Gel-Syn Beti Kearne y Other [employer] Other 03-01-2020 Gel-Syn Beti Kearne y Other [employer] Other 02-16-2020 Gel-Syn Beti Kearne y Other [employer] Other 01-26-2020 Kenalog -40 mg Beti Kear dwayne Other [employer] Other 08-11-2017 Theraputic Injection Robert Bowles Other [employer] Other 08-04-2017 Theraputic Injection Shareefe martin Bowles Other [employer] Other 07-07-2017 Kenalog -40 mg Beti Kear dwayne Other [employer] Other 04-09-2017 Kenalog -40 mg Beti Kear dwayne Other [employer] Other 12-11-2016 Kenalog -40 mg Beti Kear dwayne Other [employer] Other 09-29-2014 influenza, injectabl e, quadrivalent, contains preservative Beti Bowles Other [facility] Payers Date Payer Category Payer Medicare [id number] 2024 Unknown 2024 Medicaid [id number] 2024 Unknown [id number] 2023 Self-pay [id number] 2023 Medicaid [id number] 2009 Medicare MEDICARE MEDICAR E A AND B [id number] 2009-Present [phone] [address] [address] [place] [address] Medicare [id number] 2009 Medicare [id number] 1977 Unknown [id number] 1977 Unknown [id number] 1977 Unknown [id number] 1977 Unknown [id number] 1977 Unknown [id number] 1977 Unknown [id number] 1959 Medicare [id number] 1959 Unknown [id number] Unknown [id number] Unknown [id number] Unknown [id number] Unknown [id number] Unknown [id number] Social History Date Type Detail Facility Start: 03-04-2021 End: 09-28-2023 Tobacco smoking status NHIS Ex-smoker [facility] Start: 03-04-2021 End: 09-28-2023 Tobacco use and exposure Smokeless tobacco non-user [facility] Start: 1975 Sex Assigned At Female [facility] Start: 01-10-2022 End: 01-20-2022 Exposure to SARS-CoV-2 (event) Not sure [facility] Start: 09-22-2022 End: 06-01-2023 Sex Assigned At [facility] History of tobacco use Current smoker [facility] Start: 09-22-2022 End: 06-01-2023 History of Social function [facility] Adult Depression Screening Assessment 1 [facility] Start: 02-25-2021 Gender identity Identifies as female gender (finding) [facility] Start: 02-25-2021 Sexual orientation Heterosexual (fin ding) [facility] Start: 06-01-2023 End: 05-30-2024 Alcohol intake Current drinker of alcohol (finding) [facility] Clinical Notes 03-04-2021 to 05-30-2024 Zeinab Wood MD - 05/30/2024 9:52 AM EDTTelephone Encounter - Eun Stanford APRN.REBAR BENDER - 05/26/2024 10:59 AM EDTTelephone Encounter - Eun Stanford APRN.REBAR BENDER - 05/26/2024 10:59 AM EDT Note Date & Type Note Facility 05-30-2024 Note HNO ID: [id number] Author: ZEINAB WOOD MD Service: ? Author Type: Physician Type: Progress Notes Filed: 05/30/2024 10:17 Note Text: Kourtney Novak is a 47 year old female who presents for follow up: [facility] elevated crp Negative RF, CCP, DWAYNE PREVIOUS DIAG arthralgias, FM, COPD INTERVAL HISTORY since last visit, has good and bad days Today has pain in neck and low back Pain of both legs on walking Continues to be on plaquenil and feels it is helping. Has ''not pulled a tendon while taking it'' felt plaquenil was helping significantly in beginning but now has ''pulling of tendons '' sensation currently Em stiffness- for about half hour No rash, ulcers, fevers, swollen lymph nodes, DVT/PE, raynauds, sicca symptoms, trouble swallowing, back pain, red eyes, Chron's/UC or Psoriasis. MEDS/THERAPIES TRIED: Plaquenil bid - started on 03/04 Prednisone- great response Savella for FM Gabapentin and lyrica- SE Cymbalta- started on 10/06 Mobic - did not help GENERAL: No weight loss, malaise or fevers., SEE HPI HEENT: Negative for frequent or significant headaches, No changes in hearing or vision, no nose bleeds or other nasal problems RESPIRATORY: Negative for cough, wheezing or shortness of breath. CARDIOVASCULAR: Negative for chest pain, leg swelling or palpitations. GI: Negative for abdominal discomfort, blood in stools or black stools or change in bowel habits MUSCULOSKELETAL :see HPI SKIN: Negative for lesions, rash, and itching. PSYCH: Negative for sleep disturbance, mood disorder and recent psychosocial stressors. NEURO: No history of headaches, syncope, paralysis, seizures or tremors All other reviewed and negative other than HPI. PAST MEDICAL HISTORY Diagnosis Date Anxiety COPD (chronic obstructive pulmonary disease) (HCC) Depression Diabetes mellitus (HCC) Fibromyalgia Mixed hyperlipidemia PAST SURGICAL HISTORY Procedure Laterality Date APPENDECTOMY 2020 HAND SURGERY HX Right 2020 REVISE MEDIAN N/CARPAL TUNNEL SURG Bilateral methocarbamol (ROBAXIN) 500 mg tablet Take 1 tablet by mouth two times a day as needed. predniSONE (DELTASONE) 5 mg tablet TAKE 1 TO 2 TABLETS BY MOUTH EVERY DAY nortriptyline (PAMELOR) 25 mg capsule Take 1 capsule by mouth daily at bedtime. etodolac (LODINE) 400 mg tablet One tab po bid prn hydrOXYchloroQUINE (PLAQUENIL) 200 mg tablet take 1 tablet by mouth twice daily DULoxetine (CYMBALTA) 60 mg capsule Take 1 capsule by mouth once daily. vilazodone (VIIBRYD) 40 mg tablet Take 40 mg by mouth once daily. benzonatate (TESSALON PERLES ORAL) REXULTI 2 mg tablet Take 2 mg by mouth once daily. budesonide (PULMICORT) 1 mg/2 mL nebulizer solution INHALE 1 (ONE) vial via NEBULIZER ONCE DAILY dapagliflozin (FARXIGA) 5 mg tablet DEXILANT 60 mg CpDM Take 1 capsule by mouth twice daily. doxepin capsule 10 mg glycopyrrolate (ROBINUL) 1 mg tablet Take 2 mg by mouth twice daily. ipratropium-albuterol (DUONEB) 0.5 mg-3 mg(2.5 mg base)/3 mL nebu lamoTRIgine (LAMICTAL) 200 mg tablet TAKE 3 TABLETS EVERY DAY AMITIZA 24 mcg capsule Take 24 mcg by mouth twice daily. metFORMIN (GLUCOPHAGE) 500 mg tablet pioglitazone (ACTOS) 15 mg tablet simvastatin (ZOCOR) 20 mg tablet Take 20 mg by mouth once daily. levothyroxine (SYNTHROID) 50 mcg tablet Take 50 mcg by mouth daily before breakfast. sucralfate (CARAFATE) 1 gram tablet (Patient not taking: Reported on 09/28/2023) FAMILY HISTORY Problem Relation Age of Onset Seizures Brother Social History Tobacco Use Smoking status: Former Smokeless tobacco: Never Substance Use Topics Alcohol use: Yes Drug use: Never BP 109/72 Pulse 87 Resp 18 Wt 109 kg (240 lb 4.8 oz) BMI 40.61 kg/m? PE; Well built and nourished. Pleasant mood. In no acute distress. Examination of the skin: She has no rashes, ulcers, nodules or tightening of the skin. Eyes: Pupils are equal in size and reactive to light. Conjunctivae are noninjected. Sclerae are anicteric. Ears, Nose, Mouth and Throat: Nasal mucosa and septum appear normal. Teeth and gums appear normal. Oropharynx is clear of erythema and exudate. Hearing is grossly normal. Neck: Supple. There is no JVD. Trachea is in the midline. There are no palpable lymph nodes or scars. Respiratory: Lungs are clear to auscultation bilaterally with no dullness to percussion. There is good air movement in all lung zones. Cardiovascular: Heart rate is regular. Nomurmur or rub is appreciated. She has no carotid or abdominal bruits. Pedal pulses are easily palpable. She has no significant edema or varicosities of his lower extremities. GI: Bowel sounds are present. Abdomen is soft and nontender without rebound or guarding. No mass or organomegaly is noted. Lymphatic: There is no lymphadenopathy in the axillary, epitrochlear or groin regions. Psychiatric: She is alert and oriented. She has good recall of recent and remote event (more content not included)... [facility] 05-30-2024 History of Present illness Narrative Kourtney Novak is a 47 year old female who presents for follow up: RHEUM LABS elevated crp Negative RF, CCP, DWAYNE PREVIOUS DIAG arthralgias, FM, COPD INTERVAL HISTORY since last visit, has good and bad days Today has pain in neck and low back Pain of both legs on walking Continues to be on plaquenil and feels it is helping. Has ''not pulled a tendon while taking it'' felt plaquenil was helping significantly in beginning but now has ''pulling of tendons '' sensation currently Em stiffness- for about half hour No rash, ulcers, fevers, swollen lymph nodes, DVT/PE, raynauds, sicca symptoms, trouble swallowing, back pain, red eyes, Chron's/UC or Psoriasis. MEDS/THERAPIES TRIED: Plaquenil bid - started on 03/04 Prednisone- great response Savella for FM Gabapentin and lyrica- SE Cymbalta- started on 10/06 Mobic - did not help GENERAL: No weight loss, malaise or fevers., SEE HPI HEENT: Negative for frequent or significant headaches, No changes in hearing or vision, no nose bleeds or other nasal problems RESPIRATORY: Negative for cough, wheezing or shortness of breath. CARDIOVASCULAR: Negative for chest pain, leg swelling or palpitations. GI: Negative for abdominal discomfort, blood in stools or black stools or change in bowel habits MUSCULOSKELETAL :see HPI SKIN: Negative for lesions, rash, and itching. PSYCH: Negative for sleep disturbance, mood disorder and recent psychosocial stressors. NEURO: No history of headaches, syncope, paralysis, seizures or tremors All other reviewed and negative other than HPI. PAST MEDICAL HISTORY Diagnosis Date Anxiety COPD (chronic obstructive pulmonary disease) (HCC) Depression Diabetes mellitus (HCC) Fibromyalgia Mixed hyperlipidemia PAST SURGICAL HISTORY Procedure Laterality Date APPENDECTOMY 2020 HAND SURGERY HX Right 2020 REVISE MEDIAN N/CARPAL TUNNEL SURG Bilateral methocarbamol (ROBAXIN) 500 mg tablet Take 1 tablet by mouth two times a day as needed. predniSONE (DELTASONE) 5 mg tablet TAKE 1 TO 2 TABLETS BY MOUTH EVERY DAY nortriptyline (PAMELOR) 25 mg capsule Take 1 capsule by mouth daily at bedtime. etodolac (LODINE) 400 mg tablet One tab po bid prn hydrOXYchloroQUINE (PLAQUENIL) 200 mg tablet take 1 tablet by mouth twice daily DULoxetine (CYMBALTA) 60 mg capsule Take 1 capsule by mouth once daily. vilazodone (VIIBRYD) 40 mg tablet Take 40 mg by mouth once daily. benzonatate (TESSALON PERLES ORAL) REXULTI 2 mg tablet Take 2 mg by mouth once daily. budesonide (PULMICORT) 1 mg/2 mL nebulizer solution INHALE 1 (ONE) vial via NEBULIZER ONCE DAILY dapagliflozin (FARXIGA) 5 mg tablet DEXILANT 60 mg CpDM Take 1 capsule by mouth twice daily. doxepin capsule 10 mg glycopyrrolate (ROBINUL) 1 mg tablet Take 2 mg by mouth twice daily. ipratropium-albuterol (DUONEB) 0.5 mg-3 mg(2.5 mg base)/3 mL nebu lamoTRIgine (LAMICTAL) 200 mg tablet TAKE 3 TABLETS EVERY DAY AMITIZA 24 mcg capsule Take 24 mcg by mouth twice daily. metFORMIN (GLUCOPHAGE) 500 mg tablet pioglitazone (ACTOS) 15 mg tablet simvastatin (ZOCOR) 20 mg tablet Take 20 mg by mouth once daily. levothyroxine (SYNTHROID) 50 mcg tablet Take 50 mcg by mouth daily before breakfast. sucralfate (CARAFATE) 1 gram tablet (Patient not taking: Reported on 09/28/2023) FAMILY HISTORY Problem Relation Age of Onset Seizures Brother Social History Tobacco Use Smoking status: Former Smokeless tobacco: Never Substance Use Topics Alcohol use: Yes Drug use: Never BP 109/72 Pulse 87 Resp 18 Wt 109 kg (240 lb 4.8 oz) BMI 40.61 kg/m PE; Well built and nourished. Pleasant mood. In no acute distress. Examination of the skin: She has no rashes, ulcers, nodules or tightening of the skin. Eyes: Pupils are equal in size and reactive to light. Conjunctivae are noninjected. Sclerae are anicteric. Ears, Nose, Mouth and Throat: Nasal mucosa and septum appear normal. Teeth and gums appear normal. Oropharynx is clear of erythema and exudate. Hearing is grossly normal. Neck: Supple. There is no JVD. Trachea is in the midline. There are no palpable lymph nodes or scars. Respiratory: Lungs are clear to auscultation bilaterally with no dullness to percussion. There is good air movement in all lung zones. Cardiovascular: Heart rate is regular. Nomurmur or rub is appreciated. She has no carotid or abdominal bruits. Pedal pulses are easily palpable. She has no significant edema or varicosities of his lower extremities. GI: Bowel sounds are present. Abdomen is soft and nontender without rebound or guarding. No mass or organomegaly is noted. Lymphatic: There is no lymphadenopathy in the axillary, epitrochlear or groin regions. Psychiatric: She is alert and oriented. She has good recall of recent and remote events. Neurologic: Cranial nerves II through XII seem grossly intact. Muscle strength and muscle tone seem normal. There is no decreased muscle mass. Musculoskeletal: She has normal gait and station. Her digits and nails appear normal. All joints were examined and were normal without pain, tenderness, swelling, deformity, deformity/sublaxation, and with full range of motion except modest trigger points No synovitis of any joints noted MOST RECENT LABS: REVIEWED WITH PATIENT IMP/PLAN: 45 yr with h/o COPD, DM, FM, Depression and anxiety who is here for ''pulling of tendons'', pulled biceps tendon while lifting trash Patient with h/o FM- diagnosed by PCP , started on savella and that keeps sx under control Also has pain in low back Has CS injections of both knees for ''slight arthritis'' and that helps for a long time Discussed with patient at last visit- as follows-Regarding arthralgias and myalgias - DD include inflammatory arhtritis vs ealry osteoarthritis - responds well to prednisone given for COPD which suggests inflammatory component - has tried multiple nsaids in past without any improvement She returned later- labs revealed elevated crp and so started on plaquenil Since starting on plaquenil, feels about 90% better!! She returned later- doing much better since starting plaquenil. Continues to feel the plaquenil is helping significantly !! Has pain in lft arm today but thinks it is due to recent massage -will continue the plaquenil bid -recent eye exam returned normal. She returns today- since last visit, having a flare up as she started going back to the gym Today has pain all over Pain in both hands today as well Continues to be on plaquenil and feels it is helping. Has ''not pulled a tendon while taking it'' Em stiffness- few minutes -continue plaquenil bid -consider dose MTX in future in addition to plaquenil Regarding FM- agree with diagnosis Was on savella biut feels it was not helping Tried lyrica and gabapentin in past but stopped due to side effects She was weaned of the savella and started on cymbalta with good benefit -will increase cymbalta to 90po every day from 60mg po qd -continue lodine bid prn -advised stretching and regular exercise -continue going to gym- recently started. F/U:6m Check following: -none Zeinab Wood MD Answers submitted by the patient for this visit: Review of Systems Rheumatology (Submitted on 05/27/2024) Fever : No Recent unintentional weight change: No Eye pain: No Eye redness: No Vision Disturbance: No Eye Dryness: Yes Nosebleeds: No Sores in your mouth: No Trouble Swallowing: No Dry Mouth: Yes Chest pain: No Leg Swelling: No A cough: No Shortness of breath: Yes Pain with breathing: No Heartburn: Yes Abdominal pain: No Diarrhea: No Black tarry stools: No Blood in urine: No Pain or burning with urination: No Joint pain or stiffness: Yes Muscle weakness: No Muscle aches: Yes Joint swelling: No Morning Stiffness in Joints: Yes A rash: No Skin Color Changes: No Hair Loss: No Nail Changes: No Headaches: Yes Numbness: No Memory Loss: No Swollen Glands: No documented in this encounter [facility] 05-26-2024 Telephone encounter Note The following approved medication requests have been transmitted electronically. Requested Prescriptions Signed Prescriptions Disp Refills methocarbamol (ROBAXIN) 500 mg tablet 45 tablet 2 Sig: Take 1 tablet by mouth two times a day as needed. Authorizing Provider: EUN STANFORD APRN.CNP [facility] 05-26-2024 Miscellaneous Notes The following approved medication requests have been transmitted electronically. Requested Prescriptions Signed Prescriptions Disp Refills methocarbamol (ROBAXIN) 500 mg tablet 45 tablet 2 Sig: Take 1 tablet by mouth two times a day as needed. Authorizing Provider: EUN STANFORD APRN.CNP Physician: Eliceo Call from patient requesting refill. Please E-Scribe Last office visit 02/05/24 with Eliceo virtual Next office visit N/A Patient Comment: My dr called me in a pill for my back and the pharmacy said I cant them together so they cancelled the robaxin. Im going to have them cancel that other one because robaxin is better for me. Thank you Requested Prescriptions Pending Prescriptions Disp Refills methocarbamol (ROBAXIN) 500 mg tablet 45 tablet 2 Sig: Take 1 tablet by mouth two times a day as needed. Pharmacy Name: [facility] documented in this encounter [facility] 05-26-2024 Telephone encounter Note Physician: Eliceo Call from patient requesting refill. Please E-Scribe Last office visit 02/05/24 with Eliceo virtual Next office visit N/A Patient Comment: My dr called me in a pill for my back and the pharmacy said I cant them together so they cancelled the robaxin. Im going to have them cancel that other one because robaxin is better for me. Thank you Requested Prescriptions Pending Prescriptions Disp Refills methocarbamol (ROBAXIN) 500 mg tablet 45 tablet 2 Sig: Take 1 tablet by mouth two times a day as needed. Pharmacy Name: [facility] 03-25-2024 Telephone encounter Note The following approved medication requests have been transmitted electronically. Requested Prescriptions Pending Prescriptions Disp Refills predniSONE (DELTASONE) 5 mg tablet [Pharmacy Med Name: prednisone 5 mg tablet] 60 tablet 3 Sig: TAKE 1 TO 2 TABLETS BY MOUTH EVERY DAY Zeinab Wood MD [facility] 03-25-2024 Miscellaneous Notes The following approved medication requests have been transmitted electronically. Requested Prescriptions Pending Prescriptions Disp Refills predniSONE (DELTASONE) 5 mg tablet [Pharmacy Med Name: prednisone 5 mg tablet] 60 tablet 3 Sig: TAKE 1 TO 2 TABLETS BY MOUTH EVERY DAY Zeinab Wood MD No standing orders on file Most recent Rheumatology visit: 09/28/2023 (with Zeinab Wood) Rheumatology Care Team: None on file Recent Office Visits - This Specialty 09/28/2023 Inflammatory arthritis Rheumatology Zeinab Wood MD 09/29/2022 Inflammatory arthritis Rheumatology Zeinab Wood MD 01/20/2022 Inflammatory arthritis Rheumatology Zeinab Wood MD Upcoming Rheumatology Appointments - Next 365 Days Visit Type Date Time Department [facility] 05/30/2024 9:40 AM [facility] Last Ophthalmology Check for Plaquenil (Hydroxychloroquine) Last OCT Macula Exam No resulted procedures found. Last Visual Field Exam No resulted procedures found. CBC: None on file in the last 6 months Vitamin D: None on file in the last 6 months LFT: None on file in the last 6 months Hepatic Function: Creatinine: None on file in the last 6 months ESR/CRP: None on file in the last 6 months Uric Acid: None on file in the last 6 months Open Standing (Multiple Instance) Lab Orders None Open Future (Single Instance) Lab Orders Expected Expires Ordered BASIC METABOLIC PANEL [SQBMP] 02/03/24 05/04/24 02/03/24 Auth. provider: Erik Pineda MD Assoc. diagnoses: Intracranial meningioma (HCC), Preop testing COMPLETE BLOOD COUNT [SQCBC] 02/03/24 05/04/24 02/03/24 Auth. provider: Erik Pineda MD Assoc. diagnoses: Intracranial meningioma (HCC), Preop testing CONFIRM BLOOD TYPE [SQCONABO] 02/03/24 05/04/24 02/03/24 Auth. provider: Erik Pineda MD Assoc. diagnoses: Intracranial meningioma (HCC), Preop testing STAPHYLOCOCCUS AUREUS & MRSA SCREEN, PCR, NASAL [SQSAPCR] 02/03/24 05/04/24 02/03/24 Auth. provider: Erik Pineda MD Assoc. diagnoses: Intracranial meningioma (HCC), Preop testing TYPE AND SCREEN,30 DAY [[id number]] 02/03/24 05/04/24 02/03/24 Auth. provider: Erik Pineda MD Assoc. diagnoses: Intracranial meningioma (HCC), Preop testing documented in this encounter [facility] 03-25-2024 Telephone encounter Note No standing orders on file Most recent Rheumatology visit: 09/28/2023 (with Zeinab Wood) Rheumatology Care Team: None on file Recent Office Visits - This Specialty 09/28/2023 Inflammatory arthritis Rheumatology Zeinab Wood MD 09/29/2022 Inflammatory arthritis Rheumatology Zeinab Wood MD 01/20/2022 Inflammatory arthritis Rheumatology Zeinab Wood MD Upcoming Rheumatology Appointments - Next 365 Days Visit Type Date Time Department [facility] 05/30/2024 9:40 AM [facility] Last Ophthalmology Check for Plaquenil (Hydroxychloroquine) Last OCT Macula Exam No resulted procedures found. Last Visual Field Exam No resulted procedures found. CBC: None on file in the last 6 months Vitamin D: None on file in the last 6 months LFT: None on file in the last 6 months Hepatic Function: Creatinine: None on file in the last 6 months ESR/CRP: None on file in the last 6 months Uric Acid: None on file in the last 6 months Open Standing (Multiple Instance) Lab Orders None Open Future (Single Instance) Lab Orders Expected Expires Ordered BASIC METABOLIC PANEL [SQBMP] 02/03/24 05/04/24 02/03/24 Auth. provider: Erik Pineda MD Assoc. diagnoses: Intracranial meningioma (HCC), Preop testing COMPLETE BLOOD COUNT [SQCBC] 02/03/24 05/04/24 02/03/24 Auth. provider: Erik Pineda MD Assoc. diagnoses: Intracranial meningioma (HCC), Preop testing CONFIRM BLOOD TYPE [SQCONABO] 02/03/24 05/04/24 02/03/24 Auth. provider: Erik Pineda MD Assoc. diagnoses: Intracranial meningioma (HCC), Preop testing STAPHYLOCOCCUS AUREUS & MRSA SCREEN, PCR, NASAL [SQSAPCR] 02/03/24 05/04/24 02/03/24 Auth. provider: Erik Pineda MD Assoc. diagnoses: Intracranial meningioma (HCC), Preop testing TYPE AND SCREEN,30 DAY [[id number]] 02/03/24 05/04/24 02/03/24 Auth. provider: Erik Pineda MD Assoc. diagnoses: Intracranial meningioma (HCC), Preop testing [facility] 03-23-2024 Telephone encounter Note Patient last seen 02/05/2024. [facility] 03-23-2024 Miscellaneous Notes Patient last seen 02/05/2024. documented in this encounter [facility] 03-08-2024 Telephone encounter Note ADDENDUM: March 08, 2024 2:39 PM Distance Health Visit on 02/02/2024 including the details for the patient's surgery was faxed to Moira DONOVAN ( [facility]) . Mario Alberto Phillips RN, Broom Man [facility] 03-08-2024 Miscellaneous Notes ADDENDUM: March 08, 2024 2:39 PM Distance Health Visit on 02/02/2024 including the details for the patient's surgery was faxed to Moira DONOVAN ( [facility]) . Mario Alberto Phillips RN, Broom Man Spoke with nurse Pizarro. We discussed that the patient's epidural steroid injection on 03/14/2024 for her neck pain (C7/T1) is far out from her surgery for the craniotomy with Dr Erik Pineda (04/04/24). Mario Alberto Phillips RN, Broom Man General Call Caller : Moira harrison at [facility] Contact Reason for Call : Nurse would like to confirm that pt is allowed to receive steroid injection prior to surgery-80mg of kenalog Patient requesting return call ? Yes documented in this encounter [facility] 03-08-2024 Telephone encounter Note Spoke with nurse Moira. We discussed that the patient's epidural steroid injection on 03/14/2024 for her neck pain (C7/T1) is far out from her surgery for the craniotomy with Dr Erik Pineda (04/04/24). Mario Alberto Phillips RN, Broom Man [facility] 03-08-2024 Telephone encounter Note General Call Caller : Moira Ortiz nurse at [facility] Contact Reason for Call : Nurse would like to confirm that pt is allowed to receive steroid injection prior to surgery-80mg of kenalog Patient requesting return call ? Yes [facility] 02-10-2024 Telephone encounter Note Images from the original note were not included. Prior Authorization for Medications Requested by ([employer] Pharmacy, Patient Call, Fax) : [facility] Pharmacy Name: [facility] Phone # : [phone] Name of Medication : Robaxin Dose : 500 mg Tablet If renewal, auth date expiration: NA Prescribing Provider: Eliceo Last OV: 02/05/2024 with Eliceo Insurance Provider : Medicare / [employer]. Is insurance card scanned in, including Rx info? Medicare card scanned - no RX information Insurance Phone : CoverMyMeds [place]: NA E-PA? Yes [facility] 02-10-2024 Miscellaneous Notes Images from the original note were not included. Prior Authorization for Medications Requested by ([employer] Pharmacy, Patient Call, Fax) : [facility] Pharmacy Name: [facility] Phone # : [phone] Name of Medication : Robaxin Dose : 500 mg Tablet If renewal, auth date expiration: NICOLAS Prescribing Provider: Eliceo Last OV: 02/05/2024 with Eliceo Insurance Provider : Medicare / [employer]. Is insurance card scanned in, including Rx info? Medicare card scanned - no RX information Insurance Phone : CoverMyMeds [place]: NICOLAS E-PA? Yes documented in this encounter [facility] 02-05-2024 History of Present illness Narrative Images from the original note were not included. Headache Center - Follow up Virtual Visit Patient's headache clinic evaluation was scheduled as a virtual visit using the following platform Zoom Kourtney Novak was identified by name and and consented to the video evaluation and its limitations. Based on this evaluation it may be necessary for them to schedule a follow up evaluation with me or other neurologists for formal physical examination and if necessary, other studies. I have communicated my name and active licensure. The patient's identity and physical location were verified at the time of this visit. 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 Accompanied by: Self Primary Problem List: ACTIVE PROBLEM LIST Intracranial Meningioma (Hcc) Chronic Tension-Type Headache, Intractable Chief Complaint: headache follow-up LV: 06/26/23 Dr. Luong Impression and Plan from last visit: Pt is a 47 year old female with history of migraines as a teenager who presents with chronic daily headache. She feels that most of her headaches are now stress related, and most appear consistent with tension headaches and mild to moderate severity. She takes either Excedrin or Fioricet almost daily, so we discussed that there is almost a certainty of some form of medication overuse headache present. I have asked her to avoid the Fioricet and Excedrin until we see each other again in 3 months. She can trial nortriptyline 25 mg po qhs for a preventative. Additionally, she can trial tizanidine 4 mg po q8h prn headache as a rescue. Her meningiomas appear to have enlarged and demonstrate progression since her last screening, and there is the concern of osseous invasion. She has an appointment with neurosurgery on 06/30/23. I do NOT believe that her meningioma is significantly influencing these headaches. I concur with Dr. Lou that most likely her meningiomas are asymptomatic at this time. She will follow-up in 3 months. Interval Headache History: Kourtney Novak is a 48 year old year old female, with a history of DM, COPD, Meningioma, and chronic headaches following up today virtually for headaches. Since the last visit, the patient states that her headaches have improved. Her headaches have improved significantly since starting Nortriptyline and stopping Fiorcet + Excedrin. She is down to about 5 headache days a month now. Tizanidine makes her very tired (even 1/2 dose), so she does not use this very often. She follows with Dr. Pineda of Neurosurgery for right sphenoid wing skull base tumor, with planned resection scheduled for this March. Headache 1 Number of migraine headache days/month: 0 Number of headache free days/month: 25 Days missed from work or school in the last month: 0 days Preventative: nortriptyline 25 mg po qhs Abortive: tizanidine 4 mg po q8h prn Medications effective? yes # of doses of abortive medications per month: 5 PAST MEDICAL HISTORY Diagnosis Date Anxiety COPD (chronic obstructive pulmonary disease) (HCC) Depression Diabetes mellitus (HCC) Fibromyalgia Mixed hyperlipidemia PAST SURGICAL HISTORY Procedure Laterality Date APPENDECTOMY 2020 HAND SURGERY HX Right 2020 REVISE MEDIAN N/CARPAL TUNNEL SURG Bilateral ALLERGIES No Known Allergies Current Medications: nortriptyline (PAMELOR) 25 mg capsule Take 1 capsule by mouth daily at bedtime. methocarbamol (ROBAXIN) 500 mg tablet Take 1 tablet by mouth two times a day as needed. etodolac (LODINE) 400 mg tablet One tab po bid prn hydrOXYchloroQUINE (PLAQUENIL) 200 mg tablet take 1 tablet by mouth twice daily predniSONE (DELTASONE) 5 mg tablet 1-2 tabs po qd DULoxetine (CYMBALTA) 60 mg capsule Take 1 capsule by mouth once daily. vilazodone (VIIBRYD) 40 mg tablet Take 40 mg by mouth once daily. benzonatate (TESSALON PERLES ORAL) REXULTI 2 mg tablet Take 2 mg by mouth once daily. budesonide (PULMICORT) 1 mg/2 mL nebulizer solution INHALE 1 (ONE) vial via NEBULIZER ONCE DAILY dapagliflozin (FARXIGA) 5 mg tablet DEXILANT 60 mg CpDM Take 1 capsule by mouth twice daily. doxepin capsule 10 mg glycopyrrolate (ROBINUL) 1 mg tablet Take 2 mg by mouth twice daily. ipratropium-albuterol (DUONEB) 0.5 mg-3 mg(2.5 mg base)/3 mL nebu lamoTRIgine (LAMICTAL) 200 mg tablet TAKE 3 TABLETS EVERY DAY AMITIZA 24 mcg capsule Take 24 mcg by mouth twice daily. metFORMIN (GLUCOPHAGE) 500 mg tablet pioglitazone (ACTOS) 15 mg tablet simvastatin (ZOCOR) 20 mg tablet Take 20 mg by mouth once daily. sucralfate (CARAFATE) 1 gram tablet (Patient not taking: Reported on 09/28/2023) I have reviewed the Albert Status Assessment responses and discussed these with the patient: yes Rachele Fenton APRN.REBAR BENDER HEADACHE SCORES: 06/19/2023 02/01/2024 Headache Questions ID Migraine Screener: 1 (Negative) ER visits since last office visit: 0 Hospital stays in the last year: 0 Hospital stays since last office visit 0 Limited ADLs in the last month: 0 0 Days missed from work or school in the last month: 0 0 Days headache pain free in the last month: 3 25 Days per month with ALL of the following symptoms - decreased productivity, light sensitivity and nausea: 8 0 Initial improvement of headache after botox injection at last visit: Not applicable, I did not have a botox injection at my last visit PRN medication usage in the last month: 25 Patient impression of improvement since last visit: Very much improved 06/19/2023 02/01/2024 HIT-6 HIT-6 63 (Severe impact) 46 (Little or no impact) 06/19/2023 02/01/2024 ELINOR - 2/7 SCORES ELINOR-2 Score 1 0 02/01/2024 Migraine Specific QOL - Higher scores indicate better HRQL Role Function-Restrictive Transformed Score (range: 0-100) 100 Role Function-Preventive Transformed Score (range: 0-100) 100 Emotional Function Transformed Score (range: 0-100) 100 06/19/2023 02/01/2024 PHQ-9 Score 2 5 Studies to Review: No MRI Head/Brain - Last 2 Impressions No resulted procedures found. MRA Head and/or Neck - Last 2 Impressions No resulted procedures found. MRI Cervical Spine - Last 2 Impressions No resulted procedures found. MRI Lumbar Spine - Last 2 Impressions No resulted procedures found. MRI Thoracic Spine - Last 2 Impressions No resulted procedures found. MRI Spine - Last 2 Impressions No resulted procedures found. CT Head/Brain - Last [address] BRAIN WO IVCON Collected: 01/29/2024 1:02 PM (Final result) Impression: IMPRESSION: Expansile hyperostosis of the greater wing of RIGHT sphenoid bone and posterior lateral RIGHT orbital wall consistent with a suspected diagnosis of meningioma. Mild local mass effect on the RIGHT anterior temporal pole without significant vasogenic edema. No overt soft tissue component identified in the orbit. Echocardiologist: PSCB Transcribe Date/Time: Jan 31 2024 3:33P Dictated by : NATIVIDAD PRIEST MD This examination was interpreted and the report reviewed and electronically signed by: NATIVIDAD PRIEST MD on Jan 31 2024 3:37PM EST CTA Head and/or Neck - Last 2 No resulted procedures found. Labs to Review: No New Health Issues: No New Family History: No Review of Systems: Review of system: unchanged from the previous visit (sleep patterns, mood, energy, appetite, stress, exercising). Physical Examination: Vital Signs: There were no vitals taken for this visit. General: well appearing, in no acute distress, alert Pain Behaviors: no pain behaviors observed Neurological: Mental Status: Alert and oriented to person, place and time. Affect is normal and appropriate. Speech is spontaneous and fluent without dysarthria, normal in rate, volume and articulation, and clear, coherent, and relevant. 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 Attention span and concentration are good. HEENT: Head is normocephalic and features were symmetric. Musculoskeletal: Patient able to sit up right in chair for entirety of visit. Cranial Nerves: III, IV, -EOMI: full. VII-face is symmetric without evidence of weakness. VIII-hearing intact. IMPRESSION: Chronic daily headache Meningioma (hcc) (primary encounter diagnosis) Kourtney Novak is a 48 year old year old female, with a history of DM, COPD, Meningioma, and chronic headaches who presents with now episodic headaches on nortriptyline. She has had a significant improvement in headache frequency and severity since stopping the use of Fiorcet and Excedrin. Denies any side effects to nortriptyline which she has responded well to. Tizanidine makes her very tired so I will have her switch to Robaxin instead as her headache rescue medication. 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 Patient verbalized understanding and agreed to treatment plan. Her neurological examination is essentially normal at this virtual visit. PLAN: -Continue Nortriptyline 25 mg qhs -Robaxin trial -Follow up 3 months HEADACHE MANAGEMENT: (You are the primary guardian of your health and headache. Keep track of all medications: This includes the reason for use, side effects and benefits.) MEDICATION TREATMENT: Medications to Start Taking nortriptyline (PAMELOR) 25 mg capsule Take 1 capsule by mouth daily at bedtime. methocarbamol (ROBAXIN) 500 mg tablet Take 1 tablet by mouth two times a day as needed. Discussed pathophysiology of headache. Discussed use of headache diary. Discussed triggers and lifestyle modifications including limiting caffeine consumption. Discussed treatment options, both abortive and preventive medications. Instructed patient about medications. Discussed medication overuse headache and to limit use of analgesics to less than 2 doses per week. Headache education was done. Discussed lifestyle modification including increased oral hydration, decreased caffeine, exercise and stress management. Discussed treatment options including preventive and acute medications, natural supplements, and infusion therapy. Discussed medication overuse headache and to limit use of acute treatments to no more than 2 days/week or 10 days/month. Discussed medication side effects, adverse reactions and drug interactions. Written educational materials and patient instructions outlining all of the above were given. RESEARCH: None at this time Follow-up: 3 months Level of Service: Virtual Visit 30 minutes Rachele Fenton APRN.CNP Headache Section [facility] February 05, 2024 documented in this encounter [facility] 02-05-2024 Note HNO ID: [id number] Author: RACHELE FENTON APRN.CNP Service: ? Author Type: Nurse Practitioner Type: Progress Notes Filed: 02/05/2024 07:31 Note Text: Headache Center - Follow up Virtual Visit Patient's headache clinic evaluation was scheduled as a virtual visit using the following platform Zoom Kourtney Novak was identified by name and and consented to the video evaluation and its limitations. Based on this evaluation it may be necessary for them to schedule a follow up evaluation with me or other neurologists for formal physical examination and if necessary, other studies. I have communicated my name and active licensure. The patient's identity and physical location were verified at the time of this visit. 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 Accompanied by: Self Primary Problem List: ACTIVE PROBLEM LIST Intracranial Meningioma (Hcc) Chronic Tension-Type Headache, Intractable Chief Complaint: headache follow-up LV: 06/26/23 Dr. Luong Impression and Plan from last visit: Pt is a 47 year old female with history of migraines as a teenager who presents with chronic daily headache. She feels that most of her headaches are now stress related, and most appear consistent with tension headaches and mild to moderate severity. She takes either Excedrin or Fioricet almost daily, so we discussed that there is almost a certainty of some form of medication overuse headache present. I have asked her to avoid the Fioricet and Excedrin until we see each other again in 3 months. She can trial nortriptyline 25 mg po qhs for a preventative. Additionally, she can trial tizanidine 4 mg po q8h prn headache as a rescue. Her meningiomas appear to have enlarged and demonstrate progression since her last screening, and there is the concern of osseous invasion. She has an appointment with neurosurgery on 06/30/23. I do NOT believe that her meningioma is significantly influencing these headaches. I concur with Dr. Lou that most likely her meningiomas are asymptomatic at this time. She will follow-up in 3 months. Interval Headache History: Kourtney Novak is a 48 year old year old female, with a history of DM, COPD, Meningioma, and chronic headaches following up today virtually for headaches. Since the last visit, the patient states that her headaches have improved. Her headaches have improved significantly since starting Nortriptyline and stopping Fiorcet + Excedrin. She is down to about 5 headache days a month now. Tizanidine makes her very tired (even 1/2 dose), so she does not use this very often. She follows with Dr. Pineda of Neurosurgery for right sphenoid wing skull base tumor, with planned resection scheduled for this March. Headache 1 Number of migraine headache days/month: 0 Number of headache free days/month: 25 Days missed from work or school in the last month: 0 days Preventative: nortriptyline 25 mg po qhs Abortive: tizanidine 4 mg po q8h prn Medications effective? yes # of doses of abortive medications per month: 5 PAST MEDICAL HISTORY Diagnosis Date Anxiety COPD (chronic obstructive pulmonary disease) (HCC) Depression Diabetes mellitus (HCC) Fibromyalgia Mixed hyperlipidemia PAST SURGICAL HISTORY Procedure Laterality Date APPENDECTOMY 2020 HAND SURGERY HX Right 2020 REVISE MEDIAN N/CARPAL TUNNEL SURG Bilateral ALLERGIES No Known Allergies Current Medications: nortriptyline (PAMELOR) 25 mg capsule Take 1 capsule by mouth daily at bedtime. methocarbamol (ROBAXIN) 500 mg tablet Take 1 tablet by mouth two times a day as needed. etodolac (LODINE) 400 mg tablet One tab po bid prn hydrOXYchloroQUINE (PLAQUENIL) 200 mg tablet take 1 tablet by mouth twice daily predniSONE (DELTASONE) 5 mg tablet 1-2 tabs po qd DULoxetine (CYMBALTA) 60 mg capsule Take 1 capsule by mouth once daily. vilazodone (VIIBRYD) 40 mg tablet Take 40 mg by mouth once daily. benzonatate (TESSALON PERLES ORAL) REXULTI 2 mg tablet Take 2 mg by mouth once daily. budesonide (PULMICORT) 1 mg/2 mL nebulizer solution INHALE 1 (ONE) vial via NEBULIZER ONCE DAILY dapagliflozin (FARXIGA) 5 mg tablet DEXILANT 60 mg CpDM Take 1 capsule by mouth twice daily. doxepin capsule 10 mg glycopyrrolate (ROBINUL) 1 mg tablet Take 2 mg by mouth twice daily. ipratropium-albuterol (DUONEB) 0.5 mg-3 mg(2.5 mg base)/3 mL nebu lamoTRIgine (LAMICTAL) 200 mg tablet TAKE 3 TABLETS EVERY DAY AMITIZA 24 mcg capsule Take 24 mcg by mouth twice daily. metFORMIN (GLUCOPHAGE) 500 mg tablet pioglitazone (ACTOS) 15 mg tablet simvastatin (ZOCOR) 20 mg tablet Take 20 mg by mouth once daily. sucralfate (CARAFATE) 1 gram tablet (Patient not taking: Reported on 09/28/2023) I have reviewed the Albert Status Asses (more content not included)... [facility] 02-02-2024 Note HNO ID: [id number] Author: VANESSA UGARTE MD Service: ? Author Type: Fellow Type: Progress Notes Filed: 02/02/2024 19:52 Note Text: SECTION OF SKULL BASE SURGERY MINIMALLY INVASIVE CRANIAL BASE AND PITUITARY SURGERY PROGRAM [facility] AND Head and Neck Accident, [facility] CC: Patient Care Team: Sammie Gonzalez MD as PCP - General (Family Medicine) Sammie Gonzalez MD as Referring (Family Medicine) Sammie Gonzalez MD as Referring (Family Medicine) Assessment: Ms Novak is a very pleasant 48 year old female with an incidental finding of a right medial sphenoid wing skull base tumor. I believe this is most likely a meningioma although the possibility that this could represent another type of tumor was also discussed. The natural history and treatment options for meningiomas (including observation, radiotherapy, radiosurgery, and surgery) were reviewed in detail. Ms Novak wishes to proceed with surgical resection as planned in March given that her tumor has shown growth since 2014. The risks and benefits of an open craniotomy were reviewed in detail including but not limited to: bleeding, infection, seizures, brain damage, stroke, permanent neurological deficit, paralysis, vision loss, and even . In addition, it was discussed that this may be one of several procedures required to treat this problem. Plan: Patient to sign consent form via MyChart Surgery scheduled. I performed the HANDP and I examined the patient and evaluated all available films and pertinent documents. This note accurately reflects work and decisions made by me. I spent approximately 45 minutes of total time for evaluation and management services provided on the date of the encounter which included preparing to see the patient, [id number] patient care, completing clinical documentation, performing a medically appropriate examination, counseling and educating the patient/family/caregiver, communicating with other HCPs, independently interpreting results and care coordination. Vanessa Ugarte MD PhD Subjective: Patient is unaccompanied. Ms Novak informs me that her meningioma was found incidentally when she was worked up for headaches and cognitive changes, The latter was found to be due to iron deficiency and she subsequently improved following treatment for this. She denies any symptoms of proptosis or vision changes. She has not experienced any seizures. She wished to discuss her recent imaging to determine if there had been any significant change. Current Outpatient Medications Medication Sig tiZANidine (ZANAFLEX) 4 mg tablet take 1 tablet by mouth every 8 hours as needed etodolac (LODINE) 400 mg tablet One tab po bid prn hydrOXYchloroQUINE (PLAQUENIL) 200 mg tablet take 1 tablet by mouth twice daily predniSONE (DELTASONE) 5 mg tablet 1-2 tabs po qd DULoxetine (CYMBALTA) 60 mg capsule Take 1 capsule by mouth once daily. nortriptyline (PAMELOR) 25 mg capsule Take 1 capsule by mouth daily at bedtime. vilazodone (VIIBRYD) 40 mg tablet Take 40 mg by mouth once daily. benzonatate (TESSALON PERLES ORAL) REXULTI 2 mg tablet Take 2 mg by mouth once daily. budesonide (PULMICORT) 1 mg/2 mL nebulizer solution INHALE 1 (ONE) vial via NEBULIZER ONCE DAILY dapagliflozin (FARXIGA) 5 mg tablet DEXILANT 60 mg CpDM Take 1 capsule by mouth twice daily. doxepin capsule 10 mg glycopyrrolate (ROBINUL) 1 mg tablet Take 2 mg by mouth twice daily. ipratropium-albuterol (DUONEB) 0.5 mg-3 mg(2.5 mg base)/3 mL nebu lamoTRIgine (LAMICTAL) 200 mg tablet TAKE 3 TABLETS EVERY DAY AMITIZA 24 mcg capsule Take 24 mcg by mouth twice daily. metFORMIN (GLUCOPHAGE) 500 mg tablet pioglitazone (ACTOS) 15 mg tablet simvastatin (ZOCOR) 20 mg tablet Take 20 mg by mouth once daily. sucralfate (CARAFATE) 1 gram tablet (Patient not taking: Reported on 09/28/2023) No current facility-administered medications for this visit. Physical Examination: There were no vitals taken for this visit. AANDO x 3 Normal EOM No focal weakness. 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 Echocardiologist: PSCB Transcribe Date/Time: Jan 31 2024 5:10P Dictated by : WESTLEY IYER MD This examination was interpreted and the report reviewed and electronically signed by: WESTLEY IYER MD on Jan 31 2024 5:28PM EST Results-Findings * * *Final Report* * * DATE OF EXAM: Jan 29 2024 1:56PM [facility] 0319 - MRI SKULL BASE WO/W IVCON / PROCEDURE REASON: Benign neoplasm of meninges (HCC) * * * * Physician Interpretation * * * * EXAMINATION: MRI SKULL BASE WO/W IVCON CLINICAL HISTORY: Sphenoid wing meningioma. TECHNIQUE: Sagittal T1, high-resolution coronal and axial T1, fat-suppressed axial fast T2 (more content not included)... [facility] 02-02-2024 History of Present illness Narrative Images from the original note were not included. SECTION OF SKULL BASE SURGERY MINIMALLY INVASIVE CRANIAL BASE & PITUITARY SURGERY PROGRAM [facility] & Head and Neck Accident, [facility] CC: Patient Care Team: Sammie Gonzalez MD as PCP - General (Family Medicine) Sammie Gonzalez MD as Referring (Family Medicine) Sammie Gonzalez MD as Referring (Family Medicine) Assessment: Ms Novak is a very pleasant 48 year old female with an incidental finding of a right medial sphenoid wing skull base tumor. I believe this is most likely a meningioma although the possibility that this could represent another type of tumor was also discussed. The natural history and treatment options for meningiomas (including observation, radiotherapy, radiosurgery, and surgery) were reviewed in detail. Ms Novak wishes to proceed with surgical resection as planned in March given that her tumor has shown growth since 2014. The risks and benefits of an open craniotomy were reviewed in detail including but not limited to: bleeding, infection, seizures, brain damage, stroke, permanent neurological deficit, paralysis, vision loss, and even . In addition, it was discussed that this may be one of several procedures required to treat this problem. Plan: Patient to sign consent form via MyChart Surgery scheduled. I performed the H&P and I examined the patient and evaluated all available films and pertinent documents. This note accurately reflects work and decisions made by me. I spent approximately 45 minutes of total time for evaluation and management services provided on the date of the encounter which included preparing to see the patient, [id number] patient care, completing clinical documentation, performing a medically appropriate examination, counseling and educating the patient/family/caregiver, communicating with other HCPs, independently interpreting results and care coordination. Vanessa Ugarte MD PhD Subjective: Patient is unaccompanied. Ms Novak informs me that her meningioma was found incidentally when she was worked up for headaches and cognitive changes, The latter was found to be due to iron deficiency and she subsequently improved following treatment for this. She denies any symptoms of proptosis or vision changes. She has not experienced any seizures. She wished to discuss her recent imaging to determine if there had been any significant change. Current Outpatient Medications Medication Sig tiZANidine (ZANAFLEX) 4 mg tablet take 1 tablet by mouth every 8 hours as needed etodolac (LODINE) 400 mg tablet One tab po bid prn hydrOXYchloroQUINE (PLAQUENIL) 200 mg tablet take 1 tablet by mouth twice daily predniSONE (DELTASONE) 5 mg tablet 1-2 tabs po qd DULoxetine (CYMBALTA) 60 mg capsule Take 1 capsule by mouth once daily. nortriptyline (PAMELOR) 25 mg capsule Take 1 capsule by mouth daily at bedtime. vilazodone (VIIBRYD) 40 mg tablet Take 40 mg by mouth once daily. benzonatate (TESSALON PERLES ORAL) REXULTI 2 mg tablet Take 2 mg by mouth once daily. budesonide (PULMICORT) 1 mg/2 mL nebulizer solution INHALE 1 (ONE) vial via NEBULIZER ONCE DAILY dapagliflozin (FARXIGA) 5 mg tablet DEXILANT 60 mg CpDM Take 1 capsule by mouth twice daily. doxepin capsule 10 mg glycopyrrolate (ROBINUL) 1 mg tablet Take 2 mg by mouth twice daily. ipratropium-albuterol (DUONEB) 0.5 mg-3 mg(2.5 mg base)/3 mL nebu lamoTRIgine (LAMICTAL) 200 mg tablet TAKE 3 TABLETS EVERY DAY AMITIZA 24 mcg capsule Take 24 mcg by mouth twice daily. metFORMIN (GLUCOPHAGE) 500 mg tablet pioglitazone (ACTOS) 15 mg tablet simvastatin (ZOCOR) 20 mg tablet Take 20 mg by mouth once daily. sucralfate (CARAFATE) 1 gram tablet (Patient not taking: Reported on 09/28/2023) No current facility-administered medications for this visit. Physical Examination: There were no vitals taken for this visit. A&O x 3 Normal EOM No focal weakness. 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 Echocardiologist: GUANACO Transcribe Date/Time: Jan 31 2024 5:10P Dictated by : WESTLEY IYER MD This examination was interpreted and the report reviewed and electronically signed by: WESTLEY IYER MD on Jan 31 2024 5:28PM EST Results-Findings * * *Final Report* * * DATE OF EXAM: Jan 29 2024 1:56PM [facility] 0319 - MRI SKULL BASE WO/W IVCON / PROCEDURE REASON: Benign neoplasm of meninges (HCC) * * * * Physician Interpretation * * * * EXAMINATION: MRI SKULL BASE WO/W IVCON CLINICAL HISTORY: Sphenoid wing meningioma. TECHNIQUE: Sagittal T1, high-resolution coronal and axial T1, fat-suppressed axial fast T2, and high-resolution, fat-suppressed, gadolinium enhanced axial VIBE with coronal planar reformats of the skull base. Contrast: 20 mL Dotarem IV COMPARISON: 05/06/2023 RESULT: Postop Changes: None. Acute Change: There is no evidence of an acute intracranial process. Brain Parenchyma: There is mild mass effect on the right temporal pole by the meningioma described in the skull base discussion below. The brain parenchyma is otherwise within normal limits of signal intensity and morphology. Orbits: Again noted is abnormal hypointensity in the marrow of the caudal aspect of the greater wing of the right sphenoid bone which marginally abuts the dorsal lateral margins of the right orbit there is no evidence of extension of the mass into the adjacent orbit. There is no evidence of a soft tissue mass otherwise within either orbit. Paranasal Sinuses: The paranasal sinuses, mastoid air cells and middle ear cavities are clear. Sella: The pituitary gland is within normal limits of size and signal intensity characteristics. No evidence of a suprasellar mass. The overlying hypothalamus and optic apparatus are normal in appearance. Cavernous Sinuses: The cavernous sinuses are normal in appearance. A normal flow void is noted in the carotid siphons suggesting patency by spin echo criteria. Vasculature: The major arterial and venous structures demonstrate a normal flow void, suggesting patency by spin echo criteria. No clear evidence of vascular compression of the cisternal segments of the cranial nerves. Skull Base: Again noted is a dural based extra-axial soft tissue mass along the greater wing of the right sphenoid bone which is heterogeneously hyperintense on FLAIR and T2 and demonstrates prominent heterogeneous enhancement following gadolinium administration compatible with a meningioma. Overall, the enhancing extra-axial mass measures approximately 0.8 x 1.7 x 1.5 cm in greatest AP, transverse, and CC dimensions, respectively. There is confluent contiguous abnormal hypointensity on T1 and T2 with localized expansion of the right sphenoid and subtle asymmetric heterogeneous enhancement with gadolinium suggesting this represents an intraosseous meningioma. Inferotemporal Fossa: There is no clear evidence of a contiguous soft tissue mass extending into the of the circuit judge or parapharyngeal spaces. The soft tissue planes of the, retropharyngeal, and prevertebral spaces are maintained. The visualized parotid glands are normal in appearance. Nasopharynx/Oropharynx: The nasopharynx and oropharynx are normal in appearance. Result History documented in this encounter [facility] 02-02-2024 Telephone encounter Note Called the patient confirming virtual appointment today at [address] Vanessa Ugarte ( Skull base fellow from Dr Pineda team). [facility] 02-02-2024 Miscellaneous Notes Called the patient confirming virtual appointment today at [address] Vanessa Ugarte ( Skull base fellow from Dr Pineda team). documented in this encounter [facility] 02-01-2024 Telephone encounter Note Pharmacy requesting refill via Databox. Last OV: 06/26/2023 Future OV: 02/05/2024 with Rachele Fenton APRN.JOSSIE Last prescribed: 06/26/2023 Requested Prescriptions Pending Prescriptions Disp Refills tiZANidine (ZANAFLEX) 4 mg tablet [Pharmacy Med Name: tizanidine 4 mg tablet] 60 tablet 3 Sig: take 1 tablet by mouth every 8 hours as needed [facility] 02-01-2024 Miscellaneous Notes Pharmacy requesting refill via Mychart. Last OV: 06/26/2023 Future OV: 02/05/2024 with Rachele Fenton APRN.REBAR BENDER Last prescribed: 06/26/2023 Requested Prescriptions Pending Prescriptions Disp Refills tiZANidine (ZANAFLEX) 4 mg tablet [Pharmacy Med Name: tizanidine 4 mg tablet] 60 tablet 3 Sig: take 1 tablet by mouth every 8 hours as needed documented in this encounter [facility] 01-29-2024 Note HNO ID: [id number] Author: [facility] [place] [facility] Service: Radiology Author Type: Technologist Type: Progress Notes Filed: 01/29/2024 12:53 Note Text: Radiology Service Progress Note PATIENT NAME: Kourtney Novak DATE OF SERVICE: January 29, 2024 TIME: 12:53 PM PATIENT IDENTITY VERIFICATION COMPLETED USING TWO (2) IDENTIFIERS: Name and Date of confirmed by patient verbally. FALL SCREENING: Has the patient had 2 falls in the last year or 1 fall with injury or currently using an Ambulatory Assistive Device (Walker, Cane, Wheelchair, Crutches, etc.)? No PATIENT GENDER DATA: Female. status: : No status: NO. PATIENT RELEVANT IMPLANT DATA REVIEWED: Not Applicable PATIENT PRESENTS WITH AN IMPLANTABLE OR ATTACHED RN MATERNAL CHILD: No RADIOLOGY DEPARTMENT: CT; Exam(s) Completed: Brain STERO PERIPHERAL IV DATA: Not applicable SIGNED BY: KAYLEEN Sharma January 29, 2024 12:53 PM [facility] 01-29-2024 Note HNO ID: [id number] Author: AILYN NEUMANN RT(R) Service: ? Author Type: Technologist Type: Progress Notes Filed: 01/29/2024 13:26 Note Text: Radiology Service Progress Note DATE OF SERVICE: January 29, 2024 TIME: 1:06 PM PATIENT IDENTITY VERIFICATION COMPLETED USING TWO (2) STANDARD IDENTIFIERS: Name and Date of confirmed by patient verbally. FALL SCREENING: Has the patient had 2 falls in the last year or 1 fall with injury or currently using an Ambulatory Assistive Device (Walker, Cane, Wheelchair, Crutches, etc.)? No PATIENT GENDER DATA: Female. status: : No status: NO. PATIENT RELEVANT IMPLANT DATA REVIEWED: Yes PATIENT PRESENTS WITH AN IMPLANTABLE OR ATTACHED RN MATERNAL CHILD: No ALLERGIES: Reviewed and unchanged CONTRAST ALLERGY: NO. EXAM: MRI - CONTRAST TYPE: GROUP II PERIPHERAL IV DATA: Ambulatory: A peripheral IV was started in the Left antecubital site with a Angio cath: 22 gauge. RADIOLOGY DEPARTMENT: MR; Exam(s) Completed: Head: Routine Brain SIGNATURE: Ailyn Neumann RDMS, RVT- Sheila ([facility]) PATIENT NAME: Kourtney Novak DATE: January 29, 2024 TIME: 1:06 PM [facility] 01-29-2024 History of Present illness Narrative Radiology Service Progress Note PATIENT NAME: Kourtney Novak DATE OF SERVICE: January 29, 2024 TIME: 12:53 PM PATIENT IDENTITY VERIFICATION COMPLETED USING TWO (2) IDENTIFIERS: Name and Date of confirmed by patient verbally. FALL SCREENING: Has the patient had 2 falls in the last year or 1 fall with injury or currently using an Ambulatory Assistive Device (Walker, Cane, Wheelchair, Crutches, etc.)? No PATIENT GENDER DATA: Female. status: : No status: NO. PATIENT RELEVANT IMPLANT DATA REVIEWED: Not Applicable PATIENT PRESENTS WITH AN IMPLANTABLE OR ATTACHED RN MATERNAL CHILD: No RADIOLOGY DEPARTMENT: CT; Exam(s) Completed: Brain STERO PERIPHERAL IV DATA: Not applicable SIGNED BY: KAYLEEN Sharma January 29, 2024 12:53 PM documented in this encounter [facility] 01-29-2024 History of Present illness Narrative Radiology Service Progress Note DATE OF SERVICE: January 29, 2024 TIME: 1:06 PM PATIENT IDENTITY VERIFICATION COMPLETED USING TWO (2) STANDARD IDENTIFIERS: Name and Date of confirmed by patient verbally. FALL SCREENING: Has the patient had 2 falls in the last year or 1 fall with injury or currently using an Ambulatory Assistive Device (Walker, Cane, Wheelchair, Crutches, etc.)? No PATIENT GENDER DATA: Female. status: : No status: NO. PATIENT RELEVANT IMPLANT DATA REVIEWED: Yes PATIENT PRESENTS WITH AN IMPLANTABLE OR ATTACHED RN MATERNAL CHILD: No ALLERGIES: Reviewed and unchanged CONTRAST ALLERGY: NO. EXAM: MRI - CONTRAST TYPE: GROUP II PERIPHERAL IV DATA: Ambulatory: A peripheral IV was started in the Left antecubital site with a Angio cath: 22 gauge. RADIOLOGY DEPARTMENT: MR; Exam(s) Completed: Head: Routine Brain SIGNATURE: Ailyn Neumann RDMS, RVT- Sheila ([facility]) PATIENT NAME: Kourtney Novak DATE: January 29, 2024 TIME: 1:06 PM documented in this encounter [facility] 01-27-2024 Telephone encounter Note The following approved medication requests have been transmitted electronically. Requested Prescriptions Pending Prescriptions Disp Refills etodolac (LODINE) 400 mg tablet 60 tablet 3 Sig: One tab po bid prn Zeinab Wood MD [facility] 01-27-2024 Miscellaneous Notes The following approved medication requests have been transmitted electronically. Requested Prescriptions Pending Prescriptions Disp Refills etodolac (LODINE) 400 mg tablet 60 tablet 3 Sig: One tab po bid prn Zeinab Wood MD Most recent Rheumatology visit: 09/28/2023 (with Zeinab Wood) Rheumatology Care Team: None on file Recent Office Visits - This Specialty 09/28/2023 Inflammatory arthritis Rheumatology Zeinab Wood MD 09/29/2022 Inflammatory arthritis Rheumatology Zeinab Wood MD 01/20/2022 Inflammatory arthritis Rheumatology Zeinab Wood MD Upcoming Rheumatology Appointments - Next 365 Days Visit Type Date Time Department [facility] 05/30/2024 9:40 AM [facility] REJ Last Ophthalmology Check for Plaquenil (Hydroxychloroquine) Last OCT Macula Exam No resulted procedures found. Last Visual Field Exam No resulted procedures found. CBC: None on file in the last 6 months Vitamin D: None on file in the last 6 months LFT: None on file in the last 6 months Hepatic Function: Creatinine: None on file in the last 6 months ESR/CRP: None on file in the last 6 months Uric Acid: None on file in the last 6 months Open Standing (Multiple Instance) Lab Orders None Open Future (Single Instance) Lab Orders None documented in this encounter [facility] 01-27-2024 Telephone encounter Note Most recent Rheumatology visit: 09/28/2023 (with Zeinab Wood) Rheumatology Care Team: None on file Recent Office Visits - This Specialty 09/28/2023 Inflammatory arthritis Rheumatology Zeinab Wood MD 09/29/2022 Inflammatory arthritis Rheumatology Zeinab Wood MD 01/20/2022 Inflammatory arthritis Rheumatology Zeinab Wood MD Upcoming Rheumatology Appointments - Next 365 Days Visit Type Date Time Department [facility] 05/30/2024 9:40 AM [facility] REJ Last Ophthalmology Check for Plaquenil (Hydroxychloroquine) Last OCT Macula Exam No resulted procedures found. Last Visual Field Exam No resulted procedures found. CBC: None on file in the last 6 months Vitamin D: None on file in the last 6 months LFT: None on file in the last 6 months Hepatic Function: Creatinine: None on file in the last 6 months ESR/CRP: None on file in the last 6 months Uric Acid: None on file in the last 6 months Open Standing (Multiple Instance) Lab Orders None Open Future (Single Instance) Lab Orders None [facility] 01-19-2024 Telephone encounter Note Spoke with Kourtney again , after discussing surgery planning with Dr Vanessa Ugarte ( Skull base fellow from Dr Erik Pineda team). CT Brain Stereo and Skull Base MRI were ordered for surveillance and surgery planning. Patient will be scheduled for a virtual visit after the CT/MRI appointments on 01/29/2024 for results review and surgery discussion and consent. Both appointments were confirmed. [facility] 01-19-2024 Miscellaneous Notes Spoke with Kourtney again , after discussing surgery planning with Dr Vanessa Ugarte ( Skull base fellow from Dr Erik Pineda team). CT Brain Stereo and Skull Base MRI were ordered for surveillance and surgery planning. Patient will be scheduled for a virtual visit after the CT/MRI appointments on 01/29/2024 for results review and surgery discussion and consent. Both appointments were confirmed. Spoke with Ms Kourtney Novak today confirming surgery on 04/11/[address] Erik Pineda. Right middle sphenoid wing Preoperative appointments will be scheduled ~ 2 weeks prior to surgery date at a [facility] facility closer to the patient's home. Mario Alberto Phillips RN, Broom Man documented in this encounter [facility] 01-19-2024 Telephone encounter Note Spoke with Ms Oconnell Alex Novak today confirming surgery on 04/11/[address] Erik Pineda. Right middle sphenoid wing Preoperative appointments will be scheduled ~ 2 weeks prior to surgery date at a [facility] facility closer to the patient's home. Mario Alberto Phillips RN, Broom Man [facility] 01-05-2024 Telephone encounter Note Spoke with Ms. Kourtney Novak today confirming surgery on Thu03/28/[address] Erik Pineda. Preoperative appointments to be scheduled at a [facility] facility near the patient's home. [facility] 01-05-2024 Miscellaneous Notes Spoke with Ms. Kourtney Novak today confirming surgery on Thu03/28/[address] Erik Pineda. Preoperative appointments to be scheduled at a [facility] facility near the patient's home. documented in this encounter [facility] 01-04-2024 Telephone encounter Note Orders faxed. Confirmation received. [facility] 01-04-2024 Miscellaneous Notes Orders faxed. Confirmation received. Printed labs. Sent msg to to clarify which [facility] to fax to. Labs/Fax sheet in Michelle's gambell green folder. Please fax once clarification is received. Labs are ordered, please print and fax per patient request. Zeinab Wood MD Patient calling Needs 01/01/24 Lab Orders in Epic please (pended) Also requesting to FAX 4/19/24 Lab Orders to [facility] She will send their FAX # in My Chart documented in this encounter [facility] 01-04-2024 Telephone encounter Note Printed labs. Sent [facility] msg to pt to clarify which [facility] to fax to. Labs/Fax sheet in Michelle's gambell green folder. Please fax once clarification is received. [facility] 01-04-2024 Telephone encounter Note Labs are ordered, please print and fax per patient request. Zeinab Wood MD [facility] 01-04-2024 Telephone encounter Note Patient calling Needs 01/01/24 Lab Orders in Epic please (pended) Also requesting to FAX 01/01/24 Lab Orders to [facility] She will send their FAX # in My Chart [facility] 12-02-2023 Miscellaneous Notes Called and spoke to patient and she stated she has appointment for eye exam in 01/2024. Called patient and left vm message that eye exam needed and medication sent to pharmacy and if patient had any question please call [phone]. My Chart Message also sent. She needs her eyes examined yearly. The following approved medication requests have been transmitted electronically. Requested Prescriptions Signed Prescriptions Disp Refills hydrOXYchloroQUINE (PLAQUENIL) 200 mg tablet 60 tablet 3 Sig: take 1 tablet by mouth twice daily Authorizing Provider: ZEINAB WOOD MD Most recent Rheumatology visit: 09/28/2023 (with Zeinab Wood) Rheumatology Care Team: None on file Recent Office Visits - This Specialty 09/28/2023 Inflammatory arthritis Rheumatology Zeinab Wood MD 09/29/2022 Inflammatory arthritis Rheumatology Zeinab Wood MD 01/20/2022 Inflammatory arthritis Rheumatology Zeinab Wood MD Upcoming Rheumatology Appointments - Next 365 Days Visit Type Date Time Department [facility] 05/30/2024 9:40 AM [facility] REJ Last Ophthalmology Check for Plaquenil (Hydroxychloroquine) Last OCT Macula Exam No resulted procedures found. Last Visual Field Exam No resulted procedures found. CBC: None on file in the last 6 months Vitamin D: None on file in the last 6 months LFT: None on file in the last 6 months Hepatic Function: Creatinine: None on file in the last 6 months ESR/CRP: None on file in the last 6 months Uric Acid: None on file in the last 6 months Open Standing (Multiple Instance) Lab Orders None Open Future (Single Instance) Lab Orders None documented in this encounter [facility] 11-12-2023 Miscellaneous Notes The following approved medication requests have been transmitted electronically. Requested Prescriptions Pending Prescriptions Disp Refills predniSONE (DELTASONE) 5 mg tablet 60 tablet 3 Si-2 tabs po qd Zeinab Wood MD Most recent Rheumatology visit: 09/28/2023 (with Zeinab Wood) Rheumatology Care Team: None on file Recent Office Visits - This Specialty 09/28/2023 Inflammatory arthritis Rheumatology Zeinab Wood MD 09/29/2022 Inflammatory arthritis Rheumatology Zeinab Wood MD 01/20/2022 Inflammatory arthritis Rheumatology Zeinab Wood MD Upcoming Rheumatology Appointments - Next 365 Days Visit Type Date Time Department [facility] 05/30/2024 9:40 AM [facility] RE[facility] Last Ophthalmology Check for Plaquenil (Hydroxychloroquine) Last OCT Macula Exam No resulted procedures found. Last Visual Field Exam No resulted procedures found. CBC: None on file in the last 6 months Vitamin D: None on file in the last 6 months LFT: None on file in the last 6 months Hepatic Function: Creatinine: None on file in the last 6 months ESR/CRP: None on file in the last 6 months Uric Acid: None on file in the last 6 months Open Standing (Multiple Instance) Lab Orders None Open Future (Single Instance) Lab Orders None documented in this encounter [facility] 11-11-2023 Miscellaneous Notes The following approved medication requests have been transmitted electronically. Requested Prescriptions Pending Prescriptions Disp Refills hydrOXYchloroQUINE (PLAQUENIL) 200 mg tablet 60 tablet 6 Sig: Take 1 tablet by mouth two times a day. Zeinab Wood MD Scan on 07/15/2022 1:08 PM by Provider, External, SOLISC: Consultation - Ophthalmology Most recent Rheumatology visit: 09/28/2023 (with Zeinab Wood) Rheumatology Care Team: None on file Recent Office Visits - This Specialty 09/28/2023 Inflammatory arthritis Rheumatology Zeinab Wood MD 09/29/2022 Inflammatory arthritis Rheumatology Zeinab Wood MD 01/20/2022 Inflammatory arthritis Rheumatology Zeinab Wood MD Upcoming Rheumatology Appointments - Next 365 Days Visit Type Date Time Department [facility] 05/30/2024 9:40 AM [facility] RE[facility] Last Ophthalmology Check for Plaquenil (Hydroxychloroquine) Last OCT Macula Exam No resulted procedures found. Last Visual Field Exam No resulted procedures found. CBC: None on file in the last 6 months Vitamin D: None on file in the last 6 months LFT: None on file in the last 6 months Hepatic Function: Creatinine: None on file in the last 6 months ESR/CRP: None on file in the last 6 months Uric Acid: None on file in the last 6 months Open Standing (Multiple Instance) Lab Orders None Open Future (Single Instance) Lab Orders None documented in this encounter [facility] 11-11-2023 Miscellaneous Notes Spoke with Ms.Mandie Alex Novak today following up on the [employer] message from 10/08/2023. She sent a message about having symptoms of blurry vision and was advised to schedule an appointment with ophthalmology. Today the patient stated that the blurry vision was 1 incident and that she did not have any vision changes since. She was made aware to send an update or call for any questions or concerns. Mario Alberto Phillips RN, Broom Man documented in this encounter [facility] 11-10-2023 Miscellaneous Notes Most recent Rheumatology visit: 09/28/2023 (with Zeinab Wood) Rheumatology Care Team: None on file Recent Office Visits - This Specialty 09/28/2023 Inflammatory arthritis Rheumatology Zeinab Wood MD 09/29/2022 Inflammatory arthritis Rheumatology Zeinab Wood MD 01/20/2022 Inflammatory arthritis Rheumatology Zeinab Wood MD Upcoming Rheumatology Appointments - Next 365 Days Visit Type Date Time Department [facility] 05/30/2024 9:40 AM [facility] REJ Last Ophthalmology Check for Plaquenil (Hydroxychloroquine) Last OCT Macula Exam No resulted procedures found. Last Visual Field Exam No resulted procedures found. CBC: None on file in the last 6 months Vitamin D: None on file in the last 6 months LFT: None on file in the last 6 months Hepatic Function: Creatinine: None on file in the last 6 months ESR/CRP: None on file in the last 6 months Uric Acid: None on file in the last 6 months Open Standing (Multiple Instance) Lab Orders None Open Future (Single Instance) Lab Orders None documented in this encounter [facility] 09-28-2023 Note HNO ID: [id number] Author: ZEINAB WOOD MD Service: ? Author Type: Physician Type: Progress Notes Filed: 09/28/2023 15:26 Note Text: Kourtney Novak is a 47 year old female who presents for follow up: RHEUM LABS elevated crp Negative RF, CCP, DWAYNE PREVIOUS DIAG arthralgias, FM, COPD INTERVAL HISTORY since last visit, has good and bad days Today has pain in neck and low back Pain of both legs on walking Continues to be on plaquenil and feels it is helping. Has ''not pulled a tendon while taking it'' felt plaquenil was helping significantly in beginning but now has ''pulling of tendons '' sensation currently Em stiffness- for about half hour No rash, ulcers, fevers, swollen lymph nodes, DVT/PE, raynauds, sicca symptoms, trouble swallowing, back pain, red eyes, Chron's/UC or Psoriasis. MEDS/THERAPIES TRIED: Plaquenil bid - started on 03/04 Prednisone- great response Savella for FM Gabapentin and lyrica- SE Cymbalta- started on 10/06 Mobic - did not help GENERAL: No weight loss, malaise or fevers., SEE HPI HEENT: Negative for frequent or significant headaches, No changes in hearing or vision, no nose bleeds or other nasal problems RESPIRATORY: Negative for cough, wheezing or shortness of breath. CARDIOVASCULAR: Negative for chest pain, leg swelling or palpitations. GI: Negative for abdominal discomfort, blood in stools or black stools or change in bowel habits MUSCULOSKELETAL :see HPI SKIN: Negative for lesions, rash, and itching. PSYCH: Negative for sleep disturbance, mood disorder and recent psychosocial stressors. NEURO: No history of headaches, syncope, paralysis, seizures or tremors All other reviewed and negative other than HPI. PAST MEDICAL HISTORY Diagnosis Date Anxiety COPD (chronic obstructive pulmonary disease) (HCC) Depression Diabetes mellitus (HCC) Fibromyalgia Mixed hyperlipidemia PAST SURGICAL HISTORY Procedure Laterality Date APPENDECTOMY 2020 HAND SURGERY HX Right 2020 REVISE MEDIAN N/CARPAL TUNNEL SURG Bilateral DULoxetine (CYMBALTA) 60 mg capsule Take 1 capsule by mouth once daily. nortriptyline (PAMELOR) 25 mg capsule Take 1 capsule by mouth daily at bedtime. tiZANidine (ZANAFLEX) 4 mg tablet Take 1 tablet by mouth every 8 hours as needed. hydrOXYchloroQUINE (PLAQUENIL) 200 mg tablet TAKE 1 TABLET BY MOUTH TWICE DAILY predniSONE (DELTASONE) 5 mg tablet 1-2 tabs po qd vilazodone (VIIBRYD) 40 mg tablet Take 40 mg by mouth once daily. benzonatate (TESSALON PERLES ORAL) REXULTI 2 mg tablet Take 2 mg by mouth once daily. budesonide (PULMICORT) 1 mg/2 mL nebulizer solution INHALE 1 (ONE) vial via NEBULIZER ONCE DAILY dapagliflozin (FARXIGA) 5 mg tablet DEXILANT 60 mg CpDM Take 1 capsule by mouth twice daily. doxepin capsule 10 mg glycopyrrolate (ROBINUL) 1 mg tablet Take 2 mg by mouth twice daily. ipratropium-albuterol (DUONEB) 0.5 mg-3 mg(2.5 mg base)/3 mL nebu lamoTRIgine (LAMICTAL) 200 mg tablet TAKE 3 TABLETS EVERY DAY AMITIZA 24 mcg capsule Take 24 mcg by mouth twice daily. metFORMIN (GLUCOPHAGE) 500 mg tablet pioglitazone (ACTOS) 15 mg tablet simvastatin (ZOCOR) 20 mg tablet Take 20 mg by mouth once daily. sucralfate (CARAFATE) 1 gram tablet (Patient not taking: Reported on 09/28/2023) FAMILY HISTORY Problem Relation Age of Onset Seizures Brother Social History Tobacco Use Smoking status: Former Smokeless tobacco: Never Substance Use Topics Alcohol use: Yes Drug use: Never BP (!) 102/47 Pulse 86 Ht 163.8 cm (5' 4.5 ) Wt 108.4 kg (238 lb 15.7 oz) BMI 40.39 kg/m? PE; Well built and nourished. Pleasant mood. In no acute distress. Examination of the skin: She has no rashes, ulcers, nodules or tightening of the skin. Eyes: Pupils are equal in size and reactive to light. Conjunctivae are noninjected. Sclerae are anicteric. Ears, Nose, Mouth and Throat: Nasal mucosa and septum appear normal. Teeth and gums appear normal. Oropharynx is clear of erythema and exudate. Hearing is grossly normal. Neck: Supple. There is no JVD. Trachea is in the midline. There are no palpable lymph nodes or scars. Respiratory: Lungs are clear to auscultation bilaterally with no dullness to percussion. There is good air movement in all lung zones. Cardiovascular: Heart rate is regular. Nomurmur or rub is appreciated. She has no carotid or abdominal bruits. Pedal pulses are easily palpable. She has no significant edema or varicosities of his lower extremities. GI: Bowel sounds are present. Abdomen is soft and nontender without rebound or guarding. No mass or organomegaly is noted. Lymphatic: There is no lymphadenopathy in the axillary, epitrochlear or groin regions. Psychiatric: She is alert and oriented. She has good recall of recent and remote events. Neurologic: Cranial nerves II through XII seem grossly intact. Muscle strength and muscle tone seem normal. There is no decreased muscle mass. (more content not included)... [facility] 07-06-2023 Miscellaneous Notes Spoke with Ms. Kourtney Novak. We discussed that it is so far out to schedule surgery in March 2024. We discussed option of possible surgery dates. She will be contacted during late December- January 2024 to confirm the date of surgery and schedule the preoperative appointments. Mario Alberto Phillips RN, Broom Man General Call Caller : Pt Contact Reason for Call : Pt would like to go forward w scheduling surgery. However, she would like surgery to be scheduled in March 2024, pt would like to discuss further Patient requesting return call ? Yes documented in this encounter [facility] 07-06-2023 Miscellaneous Notes Spoke with Ms. Kourtney Novak. We discussed that it is so far out to schedule surgery in March 2024. We discussed option of possible surgery dates. She will be contacted during late December- January 2024 to confirm the date of surgery and schedule the preoperative appointments. Mario Alberto Phillips RN, Broom Man documented in this encounter [facility] 06-30-2023 Instructions Heather Moy APRN.CNP - 06/30/2023 11:30 AM EDT I believe this is most likely a meningioma although the possibility that this could represent another type of tumor was also discussed. The natural history and treatment options for meningiomas (including observation, radiotherapy, radiosurgery (Gamma Knife), and surgery) were reviewed in detail. We discussed that she will likely need treatment at some point in her lifetime and surgery is a reasonable consideration. Please take time to review all of your options and get back to us with your final decision in the next 1-2 weeks. If observation, would recommend repeat MRI brain scan in 12 months from the last (due back Apr 2024). documented in this encounter [facility] 06-30-2023 Nurse Note Additional intake questions: Has the patient had fever, nausea, vomiting, diarrhea, constipation, fatigue for > 1 week? No Does the patient have a decreased appetite? No Does patient want to see a District Customs Director? No (yes to any of above refer patient to schedulers for dietitian appointment) ) Does patient have any new or increased numbness or tingling of extremities? No Is patient interested in fertility information? No Does patient need any prescription refills? No Does patient have an advanced directive in place? No, Patient referred to [facility] documented in this encounter [facility] 06-30-2023 Note HNO ID: [id number] Author: Erik Pineda MD Service: ? Author Type: Physician Type: Progress Notes Filed: 07/11/2023 2:03 PM Note Text: SECTION OF SKULL BASE SURGERY MINIMALLY INVASIVE CRANIAL BASE AND PITUITARY SURGERY PROGRAM [facility] AND Head and Neck Accident, [facility] CC: Patient Care Team: Sammie Gonzalez MD as PCP - General (Family Medicine) Montse Lou DO - [facility] ASSESSMENT: In summary, Kourtney Novak is a very pleasant 47 year old female with a right middle sphenoid wing mass consistent with meningioma. It was initially diagnosed in 2016, now with interval growth. We believe this is most likely a meningioma although the possibility that this could represent another type of tumor was also discussed. The natural history and treatment options for meningiomas (including observation, radiotherapy, radiosurgery (Gamma Knife), and surgery) were reviewed in detail. We discussed that she will likely need treatment at some point in her lifetime and surgery is a reasonable consideration. PLAN: She will consider management options and contact our office with her final decision in the next 1-2 weeks. If observation, plan to repeat MRI brain scan and follow-up in 12 months from last (April 2024). She can have imaging done locally and follow-up via virtual visit. Heather Moy APRN.REBAR BENDER I have reviewed the progess note obtained and documented by the nurse practitioner who scribed on my behalf. I examined the patient and evaluated all available films and pertinent documents. This note accurately reflects work and decisions made by me. I spent approximately 50 minutes of total time for evaluation and management services provided on the date of the encounter which included preparing to see the patient, [id number] patient care, completing clinical documentation, performing a medically appropriate examination, counseling and educating the patient/family/caregiver, communicating with other HCPs, independently interpreting results and care coordination. Erik Pineda MD The patient is referred by Dr. Montse Lou for neurosurgical evaluation. Final recommendations will be communicated back to the requesting physician by way of the shared medical records, or letters to requesting physician via [place] Mail. Chief Complaint: Meningioma History of Present Illness: Patient is unaccompanied. The patient is a 47 year old female who presents with known Right middle cranial fossa meningioma. Of note, this was initially diagnosed in 2016 during work-up of headaches. She was unaware of the tumor at this time and did not follow-up. Most recently, in NovemberApril 2023 had repeat scan for imbalance and trouble thinking and the above mass was noted to have growth. She was seen by Dr. Montse Lou for opinion and recommendation was made for neurosurgical evaluation. Interval history: 06/30/23 Has daily headaches for last several years; working with headache center for management and is working to discontinue Fioricet. 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 REVIEW OF SYMPTOMS: Neurological : + Complaint of headaches, follows with Dr. Fahad Luong (on Zanaflex AND Nortriptyline) No complaint of tinnitus No complaint of decreased hearing No complaint of diplopia No complaints of blurred vision No complaint of vision loss + Complaint of arm/leg numbness or tingling, RLE AND BLE No problem with limb coordination or imbalance No complaint of syncope or LOC or falls No complaint of seizures No complaints of memory changes, confusion, or disorientation. General : + Chronic inflammatory disease, follows with Rheumatology (on Plaquenil) + Fibromyalgia (on Cymbalta AND Prednisone prn) + Depression (on Viibryd AND Rexulti) + COPD (on Tessalon prn AND Pulmicort AND Duoneb) + DM (on Farxiga AND Metformin AND Actos) + HLP (on Zocor) + GERD (on Dexilant AND Carafate prn) + Anxiety (on Doxepin prn AND Lamictal) + Hydrohydrosis (on Robinul) + Constipation (on Amitiza) + Increased thirst Past Medical History: PAST MEDICAL HISTORY Diagnosis Date Anxiety COPD (chronic obstructive pulmonary disease) (HCC) Depression Diabetes mellitus (HCC) Fibromyalgia Mixed hyperlipidemia Past Surgical History: PAST SURGICAL HISTORY Procedure Laterality Date APPENDECTOMY 2020 HAND SURGERY HX Right 2020 REVISE MEDIAN N/CARPAL TUNNEL SURG Bilateral Family History: History reviewed. No pertinent family history. Social History: Social History Tobacco Use Smoking status: Former Smokeless tobacco: Never Substance Use Topics Alcohol use: Yes Drug use: Never Medications: Current Outpatient Medications Medication Sig Dispense Refill nortriptyline (PAMELOR) 25 mg capsule Take 1 capsule by mouth daily at bedtime. 90 capsule 3 tiZANidine (ZANAFLEX) 4 mg tablet Take 1 tablet by mout (more content not included)... [facility] 06-30-2023 History of Present illness Narrative Images from the original note were not included. SECTION OF SKULL BASE SURGERY MINIMALLY INVASIVE CRANIAL BASE & PITUITARY SURGERY PROGRAM [facility] & Head and Neck Accident, [facility] CC: Patient Care Team: Sammie Gonzalez MD as PCP - General (Family Medicine) Montse Lou DO - [facility] ASSESSMENT: In summary, Kourtney Novak is a very pleasant 47 year old female with a right middle sphenoid wing mass consistent with meningioma. It was initially diagnosed in 2016, now with interval growth. We believe this is most likely a meningioma although the possibility that this could represent another type of tumor was also discussed. The natural history and treatment options for meningiomas (including observation, radiotherapy, radiosurgery (Gamma Knife), and surgery) were reviewed in detail. We discussed that she will likely need treatment at some point in her lifetime and surgery is a reasonable consideration. PLAN: She will consider management options and contact our office with her final decision in the next 1-2 weeks. If observation, plan to repeat MRI brain scan and follow-up in 12 months from last (April 2024). She can have imaging done locally and follow-up via virtual visit. Heather Moy APRN.REBAR BENDER I have reviewed the progess note obtained and documented by the nurse practitioner who scribed on my behalf. I examined the patient and evaluated all available films and pertinent documents. This note accurately reflects work and decisions made by me. I spent approximately 50 minutes of total time for evaluation and management services provided on the date of the encounter which included preparing to see the patient, [id number] patient care, completing clinical documentation, performing a medically appropriate examination, counseling and educating the patient/family/caregiver, communicating with other HCPs, independently interpreting results and care coordination. Erik Pineda MD The patient is referred by Dr. Montse Lou for neurosurgical evaluation. Final recommendations will be communicated back to the requesting physician by way of the shared medical records, or letters to requesting physician via [place] Mail. Chief Complaint: Meningioma History of Present Illness: Patient is unaccompanied. The patient is a 47 year old female who presents with known Right middle cranial fossa meningioma. Of note, this was initially diagnosed in 2016 during work-up of headaches. She was unaware of the tumor at this time and did not follow-up. Most recently, in NovemberApril 2023 had repeat scan for imbalance and trouble thinking and the above mass was noted to have growth. She was seen by Dr. Montse Lou for opinion and recommendation was made for neurosurgical evaluation. Interval history: 06/30/23 Has daily headaches for last several years; working with headache center for management and is working to discontinue Fioricet. 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 REVIEW OF SYMPTOMS: Neurological : + Complaint of headaches, follows with Dr. Fahad Luong (on Zanaflex & Nortriptyline) No complaint of tinnitus No complaint of decreased hearing No complaint of diplopia No complaints of blurred vision No complaint of vision loss + Complaint of arm/leg numbness or tingling, RLE & BLE No problem with limb coordination or imbalance No complaint of syncope or LOC or falls No complaint of seizures No complaints of memory changes, confusion, or disorientation. General : + Chronic inflammatory disease, follows with Rheumatology (on Plaquenil) + Fibromyalgia (on Cymbalta & Prednisone prn) + Depression (on Viibryd & Rexulti) + COPD (on Tessalon prn & Pulmicort & Duoneb) + DM (on Farxiga & Metformin & Actos) + HLP (on Zocor) + GERD (on Dexilant & Carafate prn) + Anxiety (on Doxepin prn & Lamictal) + Hydrohydrosis (on Robinul) + Constipation (on Amitiza) + Increased thirst Past Medical History: PAST MEDICAL HISTORY Diagnosis Date Anxiety COPD (chronic obstructive pulmonary disease) (HCC) Depression Diabetes mellitus (HCC) Fibromyalgia Mixed hyperlipidemia Past Surgical History: PAST SURGICAL HISTORY Procedure Laterality Date APPENDECTOMY 2020 HAND SURGERY HX Right 2020 REVISE MEDIAN N/CARPAL TUNNEL SURG Bilateral Family History: History reviewed. No pertinent family history. Social History: Social History Tobacco Use Smoking status: Former Smokeless tobacco: Never Substance Use Topics Alcohol use: Yes Drug use: Never Medications: Current Outpatient Medications Medication Sig Dispense Refill nortriptyline (PAMELOR) 25 mg capsule Take 1 capsule by mouth daily at bedtime. 90 capsule 3 tiZANidine (ZANAFLEX) 4 mg tablet Take 1 tablet by mouth every 8 hours as needed. 60 tablet 3 hydrOXYchloroQUINE (PLAQUENIL) 200 mg tablet TAKE 1 TABLET BY MOUTH TWICE DAILY 60 tablet 6 DULoxetine (CYMBALTA) 60 mg capsule Take 1 capsule by mouth once daily. 30 capsule 3 predniSONE (DELTASONE) 5 mg tablet 1-2 tabs po qd 60 tablet 3 vilazodone (VIIBRYD) 40 mg tablet Take 40 mg by mouth once daily. benzonatate (TESSALON PERLES ORAL) REXULTI 2 mg tablet Take 2 mg by mouth once daily. budesonide (PULMICORT) 1 mg/2 mL nebulizer solution INHALE 1 (ONE) vial via NEBULIZER ONCE DAILY dapagliflozin (FARXIGA) 5 mg tablet DEXILANT 60 mg CpDM Take 1 capsule by mouth twice daily. doxepin capsule 10 mg glycopyrrolate (ROBINUL) 1 mg tablet Take 2 mg by mouth twice daily. ipratropium-albuterol (DUONEB) 0.5 mg-3 mg(2.5 mg base)/3 mL nebu lamoTRIgine (LAMICTAL) 200 mg tablet TAKE 3 TABLETS EVERY DAY AMITIZA 24 mcg capsule Take 24 mcg by mouth twice daily. metFORMIN (GLUCOPHAGE) 500 mg tablet pioglitazone (ACTOS) 15 mg tablet simvastatin (ZOCOR) 20 mg tablet Take 20 mg by mouth once daily. sucralfate (CARAFATE) 1 gram tablet No current facility-administered medications for this visit. Allergies: ALLERGIES No Known Allergies Physical Examination: BP 117/58 Pulse 103 Temp 37.1 C (98.7 F) (Oral) Resp 18 Ht 164 cm (5' 4.57 ) Wt 101.9 kg (224 lb 9.6 oz) SpO2 97% BMI 37.88 kg/m Well developed, well nourished Awake, alert, conversant Speech: Normal fluency and comprehension 2nd cranial nerve: Full visual white 3rd, 4th, and 6th cranial nerves: Pupils equally round and reactive to light, extraocular movements intact without nystagmus or subjective diplopia 5th cranial nerve: V1-3 intact to light touch bilaterally 7th cranial nerve: Facial muscles full and symmetric bilaterally 8th cranial nerve: hearing intact to finger rub bilaterally 9th cranial nerve: + gag reflex test deferred 10th cranial nerve: Palate elevates symmetrically and uvula in the midline 11th cranial nerve: shoulder shrug 5/5 bilaterally 12th cranial nerve: tongue protrudes in the midline Motors: Normal muscle tone, 5/5 strength throughout without pronator drift Sensation: Intact to light touch in all extremities Coordination: no dysmetria on fingers-nose testing bilaterally Gait: able to stand and ambulate independently with normal gait Cardiovascular: regular rate and rhythm, normal S1/2 sounds Lungs: clear to auscultation bilaterally Extremities: no peripheral edema Data Review: Imaging: MRI brain 05/06/23 At the floor of the right middle cranial fossa there is a 1.5 x 1.5 x 0.5 cm plaque-like dural based enhancing meningioma. This is larger when compared to the prior exam. documented in this encounter [facility] 06-26-2023 Instructions Fahad Luong MD - 06/26/2023 5:39 PM EDT New Preventative Medication: Nortriptyline 25 mg: Take 1 at bedtime every night. New Rescue Medication: Tizanidine 4 mg: Take 1 every 8 hours as needed for headache. Please avoid taking the Excedrin and Fioricet. These medications are high risk for worsening headaches over time due to rebound effects. Fahad Luong MD June 26, 2023 5:39 PM documented in this encounter [facility] 06-26-2023 Note HNO ID: [id number] Author: Fahad Luong MD Service: ? Author Type: Physician Type: Progress Notes Filed: 06/26/2023 5:42 PM Note Text: HEADACHE MEDICINE NEW EVALUATION June 26, 2023 5:00 PM I have communicated my name and active licensure. The patient's identity and physical location were verified at the time of this visit. 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 Headache 1 Diagnosis: Pending evaluation Onset: - she reports that she developed migraines as a teenager, but they self-resolved. She reports that she started getting new headaches approximately 10 years ago that she attributes to tension. Location: bilateral and occipital (left greater than right.) Quality/Description: throbbing, pressure and aching Associated Symptoms: Photophobia: no Phonophobia: no Nausea: no Vomiting: no Other symptoms: neck pain (muscle tension) Worse with activity: yes - she reports activity is an inconsistent aggravating factor. Number of NON-migraine headache days/month: 30 Non-migraine headache severity: 4 (she reports that she had severe headache for 4 days approximately 1 month ago, and went to urgent care for this.) Number of headache free days/month: 3 Current preventive treatment: none Current abortive treatment: Excedrin or FIoricet Triggers: stress Onset of headache to peak: gradual Relieving factors: Medications Positional changes: no Most common time of day for headache to begin: upon awakening (she reports awakening with the headaches nearly daily, and tend to be worst in the morning. She treats by taking medication, then they may recur later in the day.) Prodrome: none Aura: none Allodynia: no Days missed from work or school in the last month: 0 days Past Medical History: Chronic headaches Meningioma COPD DM (non-insulin dependent) Past Surgical History: Carpal Tunnel Bilaterally Cubital Tunnel Rib Removal Appendectomy Family History: Denies family history of: brain tumors or brain aneurysms. Father had AVM Mother: sinus headaches Father: headaches Social History Tobacco Use Smoking status: Former Smokeless tobacco: Never Substance Use Topics Alcohol use: Yes Drug use: Never Current Outpatient Medications on File Prior to Visit Medication Sig acetaminophen 325 mg-caffeine 40 mg-butalbital 50 mg (FIORICET) per 15 mL oral liquid acetaminophen 325 mg-caffeine 40 mg-butalbital 50 mg (FIORICET) per tablet Take 1 tablet by mouth every four hours as needed Max 4 per day AMITIZA 24 mcg capsule Take 24 mcg by mouth twice daily. benzonatate (TESSALON PERLES ORAL) budesonide (PULMICORT) 1 mg/2 mL nebulizer solution budesonide (PULMICORT) 1 mg/2 mL nebulizer solution INHALE 1 (ONE) vial via NEBULIZER ONCE DAILY dapagliflozin (FARXIGA) 5 mg tablet dexAMETHasone (DECADRON) 6 mg tablet TAKE 1 TABLET BY MOUTH EVERY DAY FOR 6 DAYS DEXILANT 60 mg CpDM Take 1 capsule by mouth twice daily. Dexlansoprazole (DEXILANT) 60 mg CpDM diclofenac, EC, (VOLTAREN) 75 mg EC tablet Take 75 mg by mouth twice daily. doxepin capsule 10 mg DULoxetine (CYMBALTA) 30 mg capsule Take 1 capsule by mouth once daily. DULoxetine (CYMBALTA) 60 mg capsule Take 1 capsule by mouth once daily. FARXIGA 5 mg tablet Take 5 mg by mouth once daily. glycopyrrolate (ROBINUL) 1 mg tablet glycopyrrolate (ROBINUL) 1 mg tablet Take 2 mg by mouth twice daily. hydroCHLOROthiazide (HYDRODIURIL, ESIDRIX) 25 mg tablet Take 25 mg by mouth once daily. hydrOXYchloroQUINE (PLAQUENIL) 200 mg tablet Take 1 tablet by mouth twice daily. hydrOXYchloroQUINE (PLAQUENIL) 200 mg tablet TAKE 1 TABLET BY MOUTH TWICE DAILY ipratropium-albuterol (DUONEB) 0.5 mg-3 mg(2.5 mg base)/3 mL nebu lamoTRIgine (LAMICTAL) 200 mg tablet TAKE 3 TABLETS EVERY DAY levoFLOXacin (LEVAQUIN) 500 mg tablet Take 500 mg by mouth once daily. metFORMIN (GLUCOPHAGE) 500 mg tablet mometasone-formoterol (DULERA) 100-5 mcg/actuation inhaler (Patient not taking: Reported on 09/29/2022) Phentermine HCl 37.5 mg tablet Take 37.5 mg by mouth once daily. pioglitazone (ACTOS) 15 mg tablet predniSONE (DELTASONE) 5 mg tablet 1-2 tabs po qd REXULTI 2 mg tablet Take 2 mg by mouth once daily. roflumilast (DALIRESP) 500 mcg tab SAVELLA 100 mg tab Take 100 mg by mouth twice daily. simvastatin (ZOCOR) 20 mg tablet Take 20 mg by mouth once daily. sucralfate (CARAFATE) 1 gram tablet vilazodone (VIIBRYD) 40 mg tablet Take 40 mg by mouth once daily. No current facility-administered medications on file prior to visit. ALLERGIES No Known Allergies PHYSICAL EXAMINATION: No vitals for VV General appearance: Well appearing, alert, in no acute distress, well-hydrated, well nourished. Skin: Skin color, texture, turgor normal, no (more content not included)... [facility] 06-26-2023 History of Present illness Narrative HEADACHE MEDICINE NEW EVALUATION June 26, 2023 5:00 PM I have communicated my name and active licensure. The patient's identity and physical location were verified at the time of this visit. 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 Headache 1 Diagnosis: Pending evaluation Onset: - she reports that she developed migraines as a teenager, but they self-resolved. She reports that she started getting new headaches approximately 10 years ago that she attributes to tension. Location: bilateral and occipital (left greater than right.) Quality/Description: throbbing, pressure and aching Associated Symptoms: Photophobia: no Phonophobia: no Nausea: no Vomiting: no Other symptoms: neck pain (muscle tension) Worse with activity: yes - she reports activity is an inconsistent aggravating factor. Number of NON-migraine headache days/month: 30 Non-migraine headache severity: 4 (she reports that she had severe headache for 4 days approximately 1 month ago, and went to urgent care for this.) Number of headache free days/month: 3 Current preventive treatment: none Current abortive treatment: Excedrin or FIoricet Triggers: stress Onset of headache to peak: gradual Relieving factors: Medications Positional changes: no Most common time of day for headache to begin: upon awakening (she reports awakening with the headaches nearly daily, and tend to be worst in the morning. She treats by taking medication, then they may recur later in the day.) Prodrome: none Aura: none Allodynia: no Days missed from work or school in the last month: 0 days Past Medical History: Chronic headaches Meningioma COPD DM (non-insulin dependent) Past Surgical History: Carpal Tunnel Bilaterally Cubital Tunnel Rib Removal Appendectomy Family History: Denies family history of: brain tumors or brain aneurysms. Father had AVM Mother: sinus headaches Father: headaches Social History Tobacco Use Smoking status: Former Smokeless tobacco: Never Substance Use Topics Alcohol use: Yes Drug use: Never Current Outpatient Medications on File Prior to Visit Medication Sig acetaminophen 325 mg-caffeine 40 mg-butalbital 50 mg (FIORICET) per 15 mL oral liquid acetaminophen 325 mg-caffeine 40 mg-butalbital 50 mg (FIORICET) per tablet Take 1 tablet by mouth every four hours as needed Max 4 per day AMITIZA 24 mcg capsule Take 24 mcg by mouth twice daily. benzonatate (TESSALON PERLES ORAL) budesonide (PULMICORT) 1 mg/2 mL nebulizer solution budesonide (PULMICORT) 1 mg/2 mL nebulizer solution INHALE 1 (ONE) vial via NEBULIZER ONCE DAILY dapagliflozin (FARXIGA) 5 mg tablet dexAMETHasone (DECADRON) 6 mg tablet TAKE 1 TABLET BY MOUTH EVERY DAY FOR 6 DAYS DEXILANT 60 mg CpDM Take 1 capsule by mouth twice daily. Dexlansoprazole (DEXILANT) 60 mg CpDM diclofenac, EC, (VOLTAREN) 75 mg EC tablet Take 75 mg by mouth twice daily. doxepin capsule 10 mg DULoxetine (CYMBALTA) 30 mg capsule Take 1 capsule by mouth once daily. DULoxetine (CYMBALTA) 60 mg capsule Take 1 capsule by mouth once daily. FARXIGA 5 mg tablet Take 5 mg by mouth once daily. glycopyrrolate (ROBINUL) 1 mg tablet glycopyrrolate (ROBINUL) 1 mg tablet Take 2 mg by mouth twice daily. hydroCHLOROthiazide (HYDRODIURIL, ESIDRIX) 25 mg tablet Take 25 mg by mouth once daily. hydrOXYchloroQUINE (PLAQUENIL) 200 mg tablet Take 1 tablet by mouth twice daily. hydrOXYchloroQUINE (PLAQUENIL) 200 mg tablet TAKE 1 TABLET BY MOUTH TWICE DAILY ipratropium-albuterol (DUONEB) 0.5 mg-3 mg(2.5 mg base)/3 mL nebu lamoTRIgine (LAMICTAL) 200 mg tablet TAKE 3 TABLETS EVERY DAY levoFLOXacin (LEVAQUIN) 500 mg tablet Take 500 mg by mouth once daily. metFORMIN (GLUCOPHAGE) 500 mg tablet mometasone-formoterol (DULERA) 100-5 mcg/actuation inhaler (Patient not taking: Reported on 09/29/2022) Phentermine HCl 37.5 mg tablet Take 37.5 mg by mouth once daily. pioglitazone (ACTOS) 15 mg tablet predniSONE (DELTASONE) 5 mg tablet 1-2 tabs po qd REXULTI 2 mg tablet Take 2 mg by mouth once daily. roflumilast (DALIRESP) 500 mcg tab SAVELLA 100 mg tab Take 100 mg by mouth twice daily. simvastatin (ZOCOR) 20 mg tablet Take 20 mg by mouth once daily. sucralfate (CARAFATE) 1 gram tablet vilazodone (VIIBRYD) 40 mg tablet Take 40 mg by mouth once daily. No current facility-administered medications on file prior to visit. ALLERGIES No Known Allergies PHYSICAL EXAMINATION: No vitals for VV General appearance: Well appearing, alert, in no acute distress, well-hydrated, well nourished. Skin: Skin color, texture, turgor normal, no suspicious rashes or lesions Head: NC/AT Eyes: EOMI grossly on video visit Neuro: Negative findings: speech normal, mental status intact, no focal deficits. CN VII intact to facial symmetry, CN VIII intact to hearing. RADIOLOGY: She saw Brain Tumor on 06/01/23 and was noted to have 2 meningiomas when showed interval growth. Diagnoses and all orders for this visit: Medication overuse headache Brain mass - CONSULT TO [facility] Meningioma (HCC) Chronic daily headache - nortriptyline (PAMELOR) 25 mg capsule; Take 1 capsule by mouth daily at bedtime. - tiZANidine (ZANAFLEX) 4 mg tablet; Take 1 tablet by mouth every 8 hours as needed. Pt is a 47 year old female with history of migraines as a teenager who presents with chronic daily headache. She feels that most of her headaches are now stress related, and most appear consistent with tension headaches and mild to moderate severity. She takes either Excedrin or Fioricet almost daily, so we discussed that there is almost a certainty of some form of medication overuse headache present. I have asked her to avoid the Fioricet and Excedrin until we see each other again in 3 months. She can trial nortriptyline 25 mg po qhs for a preventative. Additionally, she can trial tizanidine 4 mg po q8h prn headache as a rescue. Her meningiomas appear to have enlarged and demonstrate progression since her last screening, and there is the concern of osseous invasion. She has an appointment with neurosurgery on 06/30/23. I do NOT believe that her meningioma is significantly influencing these headaches. I concur with Dr. Lou that most likely her meningiomas are asymptomatic at this time. She will follow-up in 3 months. Fahad Luong MD June 26, 2023 5:36 PM documented in this encounter [facility] 06-01-2023 Note HNO ID: [id number] Author: Montse Lou DO, PhD Service: ? Author Type: Physician Type: Progress Notes Filed: 06/01/2023 9:24 AM Note Text: [facility] New Patient Consultation Referred by Sammie Gonzalez MD [address] [place] [address] Diagnosis: Multiple meningioma's with interval growth since 2016. Subjective History of Present Illness: Kourtney Novak is a 47 year old right handed female referred to [facility] by her PCP due to interval growth of known meningioma's since 2016. She started noticing imbalance a few months ago, leaning and veering to her right. 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 She has daily tension headaches x 10 years, located posteriorly with neck involvement. She had migraines as a teenager. She takes fioricet and excedrin per her PCP which are somewhat helpful. She sees a Chiropractor. She had a MRI Brain done in 2016 per her PCP, likely done for headaches. She does not feel her headaches have changed or worsened in the past 10 years. She denies awakening from headaches. She has tingling in her left arm, with intermittent numbness, radiating from the shoulder. Not painful. This has been going on a few months. She has hx of iron deficiency, has received iron infusions which have helped w fatigue. She notes issues with short term memory. No personal hx of seizures. Family hx: Father had an AVM which was surgically treated, with epilepsy after this. Her brother has seizures of unknown origin. No hx of hemorrhagic strokes. Her grandfather had ischemic stroke. 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 She lives in [place]. Interval History: 06/01/2023: Patient presents to establish care with [facility] and to discuss treatment options for meningiomas. Last Chemo: None Current Steroids dose: Prednisone 5mg daily Current AED Dose: None Review of systems: Constitutional: No recent fever or weight loss. Eyes: No history of glaucoma or cataracts. ENMT: No recent ear infection, nasal congestion, mouth sores or sore throat. CV: No history of chest pain, palpitations or leg swelling. Respiratory: h/o COPD Gastrointestinal: No history of nausea, vomiting, dysphagia or abdominal pain. Genitourinary: No history of hematuria or dysuria. Musculoskeletal: + fibromyalgia Psychiatric: + anxiety. ROS Neurological: + APARICIO, see HPI No complaint of tinnitus. No complaint of decreased hearing. No complaint of diplopia. No complaints of decreased visual acuity. No complaint of arm/leg numbness. No problem with limb coordination. No complaint of syncope, seizures or disorientation. Physical Exam: BP 116/54 Pulse 93[md notified[ Temp (Src) 99.3 (Oral) Resp 18 Ht 5' 4.567 (1.64m) Wt 224 lb 10.4 oz (101.9kg) SpO2 97% BMI 37.89 kg/(m2). General: Head, Face, Neck: No JVD, Carotid bruits. No thyroid enlargement, tenderness or mass. Eyes: Clear conjunctiva. Non-icteric. OE shows optic discs sharp. Posterior segments without hemorrhages. CV: Heart auscultation shows no abnormal sounds or murmurs. No calf tenderness or pedal edema. Peripheral pulses palpable. Respiratory: Breath sounds clear and audible throughout. Abdomen: Soft, non-tender with no organomegaly. Musculoskeletal: Gait is normal. Negative Rhomberg and tandem gait are normal. Muscle strength 5/5 and muscle tone normal without atrophy in all limbs Skin: No skin abnormality Neurological: Higher integrative functions: Oriented to person, place AND time Memory: Good recent and remote Attention Span and Concentration: Good Language: Accurate naming of objects. Good comprehension Fund of Knowledge: Good Sensory: Light touch and vibration intact. No extinction. 2nd CN: Full visual white 3rd,4th,6th CN: Pupils (=), round, react to light, full extraocular movements: 5th CN: No decrease in facial sensation, normal corneal reflexes. 7th CN: Facial muscles symmetric and strong 8th CN: Hears finger rub well bilaterally 9th CN: Good gag 10th CN: Spontaneous palate movement, full and symmetric 11th CN: Full strength in shoulder shrug. 12th CN: Tongue protrusion full and midline Myotic reflexes: 2/4 throughout and symmetrical Babinski reflexes: Absent Coordination: Rapid alternating movements fast and smooth all limbs. No dysdiadochokinesis KPS and ECOG Provider Data Form PHQ 2 and 9 Total Scores 09/22/2022 PHQ-2 Score 1 Past Medical History: (Per OSH chart) Diabetes Type II, GERD, Depression with anxiety, COPD, Emphysema, Hypercholesterolemia, Anemia, Arthritis, Bilateral cataracts, HTN, Migraine APARICIO, Past Surgical History: No past surgical history on file. Family History: No family history on file. Social History Tobacco Use Smoking status: Former Smokeless tobacco: Never Substance Use Topics Alcohol use: Yes Drug use: Never Allergies: Patient has no known (more content not included)... [facility] 05-13-2023 Miscellaneous Notes Time Frame: Next available Provider: Carmine (possible [facility]) Referring: self Please instruct patient to hand carry/ upload images prior to appt Images also requested via Electronically Dx: Multiple meningiomas with interval growth Multiple meningiomas with interval growth since 2015. MRI done for dizziness. [facility] [place] [address] [place] [address] MRI Report Signed Patient: Kourtney Novak MR#: [id number] : 1975 Acct:[id number] Age/Sex: 47 / F ADM Date: 05/06/23 Loc: Room: Type: [facility] Attending Dr: Sammie Gonzalez MD Copies to: Sammie Gonzalez MD Ordering Provider: Sammie Gonzalez MD Date of Service: 05/06/23 MR/MR head/brain wo/w con: K59.00, R53.83 MR head/brain wo/w con 05/06/2023 2:05 PM SIGN AND SYMPTOMS: Dizziness for 2 months, forgetfulness PROTOCOL: Multiplanar multisequence MR images of the brain were obtained with and without IV contrast CONTRAST: 20 mL of intravenous ProHance COMPARISON: 12/04/2015 FINDINGS: Extra axial spaces: At the floor of the right middle cranial fossa there is a 1.5 x 1.5 x 0.5 cm plaque-like dural based enhancing meningioma. This is larger when compared to the prior exam. There is a second 5 x 4 x 2 mm plaque-like meningioma laterally over the right temporal lobe which is new compared with prior exam. Hemorrhage: None. Ventricular system: Within normal limits. Basal cisterns: Within normal limits and not effaced. Cerebral parenchyma: There is a single nonspecific punctate focus of T2 and FLAIR hyperintense signal in the left frontal subcortical white matter. Midline shift: None.. Cerebellum: Within normal limits. Brainstem: Within normal limits. OTHER: Calvarium: Normal marrow signal. Vascular system: Satisfactory flow voids within the anterior and posterior circulation. Visualized Paranasal sinuses: Within normal limits. Visualized Orbits: Within normal limits. Visualized upper cervical spine: Within normal limits. Sella and skull base: Within normal limits. MR/MR head/brain wo/w con IMPRESSION: No acute intracranial pathology. At the floor of the right middle cranial fossa there is a 1.5 x 1.5 x 0.5 cm plaque-like dural based enhancing meningioma. This is larger when compared to the prior exam. There is a second 5 x 4 x 2 mm plaque-like meningioma laterally over the right temporal lobe which is new compared with prior exam. There is a single nonspecific punctate focus of T2 and FLAIR hyperintense signal in the left frontal subcortical white matter. documented in this encounter [facility] 04-13-2023 Miscellaneous Notes The following approved medication requests have been transmitted electronically. Requested Prescriptions Pending Prescriptions Disp Refills DULoxetine (CYMBALTA) 60 mg capsule 30 capsule 3 Sig: Take 1 capsule by mouth once daily. Zeinab Wood MD Most recent Rheumatology visit: 09/29/2022 (with Zeinab Wood) Recent Office Visits - This Specialty 09/29/2022 Inflammatory arthritis Rheumatology Zeinab Wood MD 01/20/2022 Inflammatory arthritis Rheumatology Zeinab Wood MD 07/04/2021 Pain in joint, multiple sites Rheumatology Zeinab Wood MD Upcoming Rheumatology Appointments - Next 365 Days Visit Type Date Time Department [facility] 09/28/2023 3:00 PM [facility] Last Ophthalmology Check for Plaquenil (Hydroxychloroquine) Last OCT Macula Exam No resulted procedures found. Last Visual Field Exam No resulted procedures found. CBC: None on file in the last 6 months Vitamin D: None on file in the last 6 months LFT: None on file in the last 6 months Hepatic Function: Creatinine: None on file in the last 6 months ESR/CRP: None on file in the last 6 months Uric Acid: None on file in the last 6 months Open Standing (Multiple Instance) Lab Orders None Open Future (Single Instance) Lab Orders None documented in this encounter [facility] 04-13-2023 Miscellaneous Notes The following approved medication requests have been transmitted electronically. Requested Prescriptions Pending Prescriptions Disp Refills hydrOXYchloroQUINE (PLAQUENIL) 200 mg tablet [Pharmacy Med Name: hydroxychloroquine 200 mg tablet] 60 tablet 6 Sig: TAKE 1 TABLET BY MOUTH TWICE DAILY Zeinab Wood MD Scan on 07/15/2022 1:08 PM by Provider, LYNDSAY Chiu: Consultation - Ophthalmology Most recent Rheumatology visit: 09/29/2022 (with Zeinab Wood) Recent Office Visits - This Specialty 09/29/2022 Inflammatory arthritis Rheumatology Zeinab Wood MD 01/20/2022 Inflammatory arthritis Rheumatology Zeinab Wood MD 07/04/2021 Pain in joint, multiple sites Rheumatology Zeinab Wood MD Upcoming Rheumatology Appointments - Next 365 Days Visit Type Date Time Department [facility] 09/28/2023 3:00 PM [facility] Last Ophthalmology Check for Plaquenil (Hydroxychloroquine) Last OCT Macula Exam No resulted procedures found. Last Visual Field Exam No resulted procedures found. CBC: None on file in the last 6 months Vitamin D: None on file in the last 6 months LFT: None on file in the last 6 months Hepatic Function: Creatinine: None on file in the last 6 months ESR/CRP: None on file in the last 6 months Uric Acid: None on file in the last 6 months Open Standing (Multiple Instance) Lab Orders None Open Future (Single Instance) Lab Orders None documented in this encounter [facility] 03-31-2023 Evaluation note Encounter Date Diagnosis Assessment Notes Mar, Nausea & vomiting (ICD-10 - R11.2) Mar, Gastroparesis due to secondary diabetes (ICD-10 - E13.43) Mar, Bloating (ICD-10 - R14.0) Mar, Belching (ICD-10 - R14.2) Mar, Overflow diarrhea (ICD-10 - R19.7) Mar, Constipation (ICD-10 - K59.00) Continue amitiza 24 mcg twice a day Continue senokot 2 tablets daily Pt to do bowel prep today-mirala x f/u with Alexsander in 3 weeks Mar, Other Obtain labs from Dr. Gonzalez regarding diabetes [employer] Other 06-26-2023 Miscellaneous Notes* Telephone Encounter - Tory Thomas LPN - 03/09/2023 11:55 AM EDT Refill to soon refilled 01/19/2023 30 capsules with 3 refilles [facility] Miscellaneous Notes* Telephone Encounter - Zeinab Wood MD - 01/19/2023 4:37 PM EDT The following approved medication requests have been transmitted electronically. Requested Prescriptions Pending Prescriptions Disp Refills DULoxetine (CYMBALTA) 60 mg capsule [Pharmacy Med Name: duloxetine 60 mg capsule,delayed release] 30 capsule 3 Sig: TAKE 1 CAPSULE BY MOUTH EVERY DAY Zeinab Wood MD * Telephone Encounter - Xin Kim RN - 01/19/2023 2:47 PM EDT Pt to have follow up in March, we cancelled the OV and rescheduled for Jun 2023. Pt will need refillto hold her until then Most recent Rheumatology visit: 09/29/2022 (with Zeinab Wood) Recent Office Visits - This Specialty 09/29/2022 Inflammatory arthritis Rheumatology Zeinab Wood MD 01/20/2022 Inflammatory arthritis Rheumatology Zeinab Wood MD 07/04/2021 Pain in joint, multiple sites Rheumatology Zeinab Wood MD Upcoming Rheumatology Appointments - Next 365 Days Visit Type Date Time Department [facility] 06/26/2023 10:40 AM [facility] Last Ophthalmology Check for Plaquenil (Hydroxychloroquine) Last OCT Macula Exam No resulted procedures found. Last Visual Field Exam No resulted procedures found. CBC: None on file in the last 6 months Vitamin D: None on file in the last 6 months LFT: None on file in the last 6 months Hepatic Function: Creatinine:None on file in the last 6 months ESR/CRP: None on file in the last 6 months Uric Acid: None on file in the last 6 months Open Standing (Multiple Instance) Lab Orders None Open Future (Single Instance) Lab Orders None [facility] Evaluation note* Encounter Date Diagnosis Assessment Notes Treatment Notes Treatment Clinical Notes Dec, Osteochondrosis of lunate of right wrist (ICD-10 - 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 May repeat ulnar wrist cortisone injection when needed. Patient instructed on the use of Voltaren Gel in the meantime Dec, Right wrist pain (ICD-10 - M25.531) Dec, Other specified postprocedural states (ICD-10 - Z98.890) [employer] Other 03-30-2023 Miscellaneous Notes* Addendum Note - Zeinab Wood MD - 12/11/2022 12:52 PM EDTAddended by: ZEINAB WOOD on: 12/11/2022 12:52 PM Modules accepted: Orders * Telephone Encounter - Zeinab Wood MD - 12/11/2022 12:51 PM EDT The following approved medication requests have been transmitted electronically. Requested Prescriptions Signed Prescriptions Disp Refills predniSONE (DELTASONE) 5 mg tablet 60 tablet 3 Si-2 tabs po qd Zeinab Wood MD documented [facility] Miscellaneous Notes* Telephone Encounter - Zeinab Wood MD - 09/29/2022 4:00 PM EST The following approved medication requests have been transmitted electronically. Requested Prescriptions Signed Prescriptions Disp Refills hydrOXYchloroQUINE (PLAQUENIL) 200 mg tablet 60 tablet 6 Sig: Take 1 tablet by mouth twice daily. Authorizing Provider: ZEINAB WOOD MD * Telephone Encounter - Zoie Morales - 09/29/2022 3:49 PM EST Patient said she needed a refill for plaquenil when she was at check out. Thank you. documented in [facility] History of Present illness Narrative* Zeinab Wood MD - 09/29/2022 3:29 PM EST Kourtney Novak is a 45 year old female who presents for follow up: RHEUM LABS elevated crp Negative RF, CCP, DWAYNE PREVIOUS DIAG arthralgias, FM, COPD INTERVAL HISTORY since last visit, felt plaquenil was helping significantly in beginning but now has ''pulling of tendons '' sensation currently Currently pain in both arms- h/o pulled tendons of both arms Has pain in left shoulder and both knees Em stiffness- for few hours No rash, ulcers, fevers, swollen lymph nodes, DVT/PE, raynauds, sicca symptoms, trouble swallowing, back pain, red eyes, Chron's/UC or Psoriasis. MEDS/THERAPIES TRIED: Plaquenil bid - started on 03/04 Prednisone- great response Savella for FM Gabapentin and lyrica- SE Cymbalta- started on 1/23 GENERAL: No weight loss, malaise or fevers., SEE HPI HEENT: Negative for frequent or significant headaches, No changes in hearing or vision, no nose bleeds or other nasal problems RESPIRATORY: Negative for cough, wheezing or shortness of breath. CARDIOVASCULAR: Negative for chest pain, leg swelling or palpitations. GI: Negative for abdominal discomfort, blood in stools or black stools or change in bowel habits MUSCULOSKELETAL :see HPI SKIN: Negative for lesions, rash, and itching. PSYCH: Negative for sleep disturbance, mood disorder and recent psychosocial stressors. NEURO: No history of headaches, syncope, paralysis, seizures or tremors All other reviewed and negative other than HPI. No past medical history on file. No past surgical history on file. vilazodone (VIIBRYD) 40 mg tablet Take 40 mg by mouth once daily. hydrOXYchloroQUINE (PLAQUENIL) 200 mg tablet Take 1 tablet by mouth twice daily. hydrOXYchloroQUINE (PLAQUENIL) 200 mg tablet Take 1 tablet by mouth twice daily. benzonatate (TESSALON PERLES ORAL) REXULTI 2 mg tablet Take 2 mg by mouth once daily. budesonide (PULMICORT) 1 mg/2 mL nebulizer solution INHALE 1 (ONE) vial via NEBULIZER ONCE DAILY dapagliflozin (FARXIGA) 5 mg tablet acetaminophen 325 mg-caffeine 40 mg-butalbital 50 mg (FIORICET) per tablet Take 1 tablet by mouth every four hours as needed Max 4 per day DEXILANT 60 mg CpDM Take 1 capsule by mouth twice daily. doxepin capsule 10 mg glycopyrrolate (ROBINUL) 1 mg tablet Take 2 mg by mouth twice daily. hydroCHLOROthiazide (HYDRODIURIL, ESIDRIX) 25 mg tablet Take 25 mg by mouth once daily. ipratropium-albuterol (DUONEB) 0.5 mg-3 mg(2.5 mg base)/3 mL nebu lamoTRIgine (LAMICTAL) 200 mg tablet TAKE 3 TABLETS EVERY DAY AMITIZA 24 mcg capsule Take 24 mcg by mouth twice daily. metFORMIN (GLUCOPHAGE) 500 mg tablet SAVELLA 100 mg tab Take 100 mg by mouth twice daily. pioglitazone (ACTOS) 15 mg tablet roflumilast (DALIRESP) 500 mcg tab simvastatin (ZOCOR) 20 mg tablet Take 20 mg by mouth once daily. sucralfate (CARAFATE) 1 gram tablet Phentermine HCl 37.5 mg tablet Take 37.5 mg by mouth once daily. budesonide (PULMICORT) 1 mg/2 mL nebulizer solution dexAMETHasone (DECADRON) 6 mg tablet TAKE 1 TABLET BY MOUTH EVERY DAY FOR 6 DAYS FARXIGA 5 mg tablet Take 5 mg by mouth once daily. acetaminophen 325 mg-caffeine 40 mg-butalbital 50 mg (FIORICET) per 15 mL oral liquid Dexlansoprazole (DEXILANT) 60 mg CpDM diclofenac, EC, (VOLTAREN) 75 mg EC tablet Take 75 mg by mouth twice daily. glycopyrrolate (ROBINUL) 1 mg tablet levoFLOXacin (LEVAQUIN) 500 mg tablet Take 500 mg by mouth once daily. mometasone-formoterol (DULERA) 100-5 mcg/actuation inhaler (Patient not taking: Reported on 09/29/2022) No family history on file. Social History Tobacco Use Smoking status: Former Smokeless tobacco: Never BP 115/56 Pulse 99 Wt 114.1 kg (251 lb 8 oz) BMI 41.85 kg/m PE; Well built and nourished. Pleasant mood. In no acute distress. Examination of the skin: She has no rashes, ulcers, nodules or tightening of the skin. Eyes: Pupils are equal in size and reactive to light. Conjunctivae are noninjected. Sclerae are anicteric. Ears, Nose, Mouth and Throat: Nasal mucosa and septum appear normal. Teeth and gums appear normal. Oropharynx is clear of erythema and exudate. Hearing is grossly normal. Neck: Supple. There is no JVD. Trachea is in the midline. There are no palpable lymph nodes or scars. Respiratory: Lungs are clear to auscultation bilaterally with no dullness to percussion. There is good air movement in all lung zones. Cardiovascular: Heart rate is regular. Nomurmur or rub is appreciated. She has no carotid or abdominal bruits. Pedal pulses are easily palpable. She has no significant edema or varicosities of his lower extremities. GI: Bowel sounds are present. Abdomen is soft and nontender without rebound or guarding. No mass ororganomegaly is noted. Lymphatic: There is no lymphadenopathy in the axillary, epitrochlear or groin regions. Psychiatric: She is alert and oriented. She has good recall of recent and remote events. Neurologic: Cranial nerves II through XII seem grossly intact. Muscle strength and muscle tone seemnormal. There is no decreased muscle mass. Musculoskeletal: She has normal gait and station. Her digits and nails appear normal. All joints were examined and were normal without pain, tenderness, swelling, deformity, deformity/sublaxation, and with full range of motion except pain on palpation of bilateral upper arms No synovitis of any joints noted MOST RECENT LABS: REVIEWED WITH PATIENT IMP/PLAN: 45 yr with h/o COPD, DM, FM, Depression and anxiety who is here for ''pulling of tendons'', pulled biceps tendon while lifting trash Patient with h/o FM- diagnosed by PCP , started on savella and that keeps sx under control Also has pain in low back Has CS injections of both knees for ''slight arthritis'' and that helps for a long time Discussed with patient at last visit- as follows-Regarding arthralgias and myalgias - DD include inflammatory arhtritis vs ealry osteoarthritis - responds well to prednisone given for COPD which suggests inflammatory component - has tried multiple nsaids in past without any improvement She returned later- labs revealed elevated crp and so started on plaquenil Since starting on plaquenil, feels about 90% better!! She returned later- doing much better since starting plaquenil. Continues to feel the plaquenil is helping significantly !! Has pain in lft arm today but thinks it is due to recent massage -will continue the plaquenil bid -recent eye exam returned normal. She returns today- since last visit, felt plaquenil was helping significantly in beginning but now has ''pulling of tendons '' sensation currently Hard to wipe herself in bathroom due to pain in tendons Currently pain in both arms- h/o pulled tendons of both arms Has pain in left shoulder and both knees Em stiffness- for few hours -continue plaquenil -continue low dose MTX in future in addition to plaquenil Regarding FM- agree with diagnosis Currently on savella marco aut feels it is not helping Tried lyrica and gabapentin in past but stopped due to side effects -will wean off the savella -start cymbalta. RBA discussed and she accepts F/U:6m Check following: -none Zeinab Wood MD Answers submitted by the patient for this visit: Review of Systems Rheumatology (Submitted on 09/22/2022) Fever : No Recent Unintentional Weight Change: No Eye Pain: No Eye Redness: No Vision Disturbance: No Eye Dryness: Yes Nose Bleeds: No Sores in your Mouth: No Trouble Swallowing: No Dry Mouth: Yes Chest Pain: No Leg Swelling: No A Cough: No Shortness of Breath: Yes Pain with Breathing: No Heartburn: Yes Abdominal Pain: No Diarrhea: No Black Tarry Stools: No Blood in Urine: No Pain or Burning with Urination: No Joint Pain or Stiffness: Yes Muscle Weakness: No Muscle Aches: Yes Joint Swelling: No Morning Stiffness in Joints: Yes A Rash: No Skin Color Changes: No Hair Loss: No Nail Changes: No Headaches: Yes Numbness: No Memory Loss: No Swollen Glands: No documented in this encounter[facility] Evaluation note* Encounter Date Diagnosis Assessment Notes Treatment Notes Treatment Clinical Notes Sep, Osteochondrosis of lunate of right wrist (ICD-10 - M92.211) Sep, Right wrist pain (ICD-10 - M25.531) Right ulnar wrist joint/TFCC injected with cortisone under sterile technique, patient tolerated well Sep, Other specified postprocedural states (ICD-10 - Z98.890) [employer] Other 11-22-2022 Evaluation note* Encounter Date Diagnosis Assessment Notes Treatment Notes Treatment Clinical Notes Jul, Osteochondrosis of lunate of right wrist (ICD-10 - 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 Decrease to 81 mg Aspirin once per day x 3 months then begin to wean off. Jul, Other specified postprocedural states (ICD-10 - Z98.890) [employer] Other 11-03-2022 Evaluation note* Encounter Date Diagnosis Assessment Notes Treatment Notes Treatment Clinical Notes Jul, Biceps tendonosis of right shoulder (ICD-10 - M67.813) Physical exam was preformed today, we feel the best treatment for the patient will be a cortisone injection today. We performed a 2/1cc Marcaine / Kenalog cortisone injection into the bicep tendon under sterile technique. Patient tolerated the injection well without adverse reaction. We will f/u with the patient on a PRN basis. Jul, Traumatic partial te ar of right biceps tendon, initial encounter (ICD-10 - S46.211A) Jul, Arthritis of right acromioclavicular joint (ICD-10 - M19.011) Jul, Tear of right supraspinatus tendon (ICD-10 - M75.101) Jul, Acute pain of right shoulder (ICD-10 - M25.511) [employer] Other 10-12-2022 Evaluation note* Encounter Date Diagnosis Assessment Notes Treatment Notes Treatment Clinical Notes Jun, Biceps tendinitis of left shoulder (ICD-10 - M75.22) Extensive discussion about current condition and treatment options available. This appears to be pain secondary to biceps tendonitis. We discussed and demonstrated gentle motion exercise and rotator cuff strengthening exercise. Discussed the use of non-steroidal anti-inflammatory medication. A 2/1cc marcaine/kenalog cortisone injection was performed into the region of the intertubercular groove and proximal biceps tendon. Patient tolerated the injection well without adverse reaction. Jun, Acute pain of left shoulder (ICD-10 - M25.512) [employer] Other 07-18-2022 Evaluation note* Encounter Date Diagnosis Assessment Notes Treatment Notes Treatment Clinical Notes Mar, Traumatic partial te ar of right biceps tendon, initial encounter (ICD-10 - S46.211A) Physical exam on patient's bicep done today, we did remind patient the multiple tears in the bicep tendon, patient will like to continue with conservative care at this time. We performed a 2/1cc Marcaine / Kenalog cortisone injection into the bicep tendon under sterile technique. Patient tolerated the injection well without adverse reaction. Patient can come in as needed for an injection. Mar, Arthritis of right acromioclavicular joint (ICD-10 - M19.011) Mar, Tear of right supraspinatus tendon (ICD-10 - M75.101) Mar, Acute pain of right shoulder (ICD-10 - M25.511) [employer] Other 05-16-2022 Evaluation note* Encounter Date Diagnosis Assessment Notes Treatment Notes Treatment Clinical Notes January, Arthritis of right acromioclavicular joint (ICD-10 - M19.011) January, Traumatic partial te ar of right biceps tendon, initial encounter (ICD-10 - S46.211A) January, Tear of right supraspinatus tendon (ICD-10 - M75.101) January, Acute pain of right shoulder (ICD-10 - M25.511) January, Acute pain of left shoulder (ICD-10 - M25.512) January, Strain of left trape zius muscle, initial encounter (ICD-10 - S46.812A) We performed a 7/3cc marcaine / kenalog cortisone injection into the bicep of the left arm under sterile technique. Patient tolerated the injection well without adverse reaction. Patient will call if injection did not work well, in that case we will order an MRI for futher review. [employer] Other 05-13-2022 Evaluation note* Encounter Date Diagnosis Assessment Notes Treatment Notes Treatment Clinical Notes January, Osteochondrosis of lunate of right wrist (ICD-10 - M92.211) January, Right wrist pain (ICD-10 - M25.531) Right ulnar wrist injected with cortisone under sterile technique, patient tolerated well January, Other specified postprocedural states (ICD-10 - Z98.890) [employer] Other 05-09-2022 Evaluation note* Encounter Date Diagnosis Assessment Notes Treatment Notes Treatment Clinical Notes January, Arthritis of right acromioclavicular joint (ICD-10 - M19.011) January, Traumatic partial te ar of right biceps tendon, initial encounter (ICD-10 - S46.211A) January, Tear of right supraspinatus tendon (ICD-10 - M75.101) January, Acute pain of right shoulder (ICD-10 - M25.511) January, Acute pain of left shoulder (ICD-10 - M25.512) January, Strain of left trapezius muscle, initial encounter (ICD-10 - S46.812A) A 1/1cc marcaine / kenalog cortisone injection was performed into the upper trazepious musculature under sterile technique. Patient tolerated the injection well with no adverse reaction. Contiue oral prednisone as prescribed by Neha ANDERSON. [employer] Other 05-09-2022 History of Present illness Narrative* Zeinab Wood MD - 01/20/2022 11:05 AM EDT Kourtney Novak is a 45 year old female who presents for follow up: [facility] elevated crp Negative RF, CCP, DWAYNE PREVIOUS DIAG arthralgias, FM, COPD INTERVAL HISTORY since last visit, doing great on the plaquenil Feels plaquenil helped by about 90 percent!! Today has pain in lft arm but feels it is due to recent massage No pain in other areas today. No other complaints No rash, ulcers, fevers, swollen lymph nodes, DVT/PE, raynauds, sicca symptoms, trouble swallowing, back pain, red eyes, Chron's/UC or Psoriasis. MEDS/THERAPIES TRIED: Plaquenil bid - started on 03/04 Prednisone- great response REVIEW OF SYSTEMS Answers for HPI/ROS submitted by the patient on 01/13/2022 Fever : No Recent Unintentional Weight Change: No Eye Pain: No Eye Redness: No Vision Disturbance: No Eye Dryness: Yes Nose Bleeds: No Sores in your Mouth: No Trouble Swallowing: No Dry Mouth: Yes Chest Pain: No Leg Swelling: No A Cough: Yes Blood when you Cough: No Shortness of Breath: Yes Pain with Breathing: No Heartburn: Yes Abdominal Pain: No Diarrhea: No Black Tarry Stools: No Blood in Urine: No Pain or Burning with Urination: No Joint Pain or Stiffness: Yes Muscle Weakness: No Muscle Aches: Yes Joint Swelling: No Morning Stiffness in Joints: Yes A Rash: No Skin Color Changes: No Hair Loss: No Nail Changes: No Headaches: Yes Numbness: No Memory Loss: No Swollen Glands: No GENERAL: No weight loss, malaise or fevers., SEE HPI HEENT: Negative for frequent or significant headaches, No changes in hearing or vision, no nose bleeds or other nasal problems RESPIRATORY: Negative for cough, wheezing or shortness of breath. CARDIOVASCULAR: Negative for chest pain, leg swelling or palpitations. GI: Negative for abdominal discomfort, blood in stools or black stools or change in bowel habits MUSCULOSKELETAL :see HPI SKIN: Negative for lesions, rash, and itching. PSYCH: Negative for sleep disturbance, mood disorder and recent psychosocial stressors. NEURO: No history of headaches, syncope, paralysis, seizures or tremors All other reviewed and negative other than HPI. No past medical history on file. No past surgical history on file. hydrOXYchloroQUINE (PLAQUENIL) 200 mg tablet Take 1 tablet by mouth twice daily. hydrOXYchloroQUINE (PLAQUENIL) 200 mg tablet Take 1 tablet by mouth twice daily. benzonatate (TESSALON PERLES ORAL) REXULTI 2 mg tablet Take 2 mg by mouth once daily. budesonide (PULMICORT) 1 mg/2 mL nebulizer solution budesonide (PULMICORT) 1 mg/2 mL nebulizer solution INHALE 1 (ONE) vial via NEBULIZER ONCE DAILY dexAMETHasone (DECADRON) 6 mg tablet TAKE 1 TABLET BY MOUTH EVERY DAY FOR 6 DAYS FARXIGA 5 mg tablet Take 5 mg by mouth once daily. dapagliflozin (FARXIGA) 5 mg tablet acetaminophen 325 mg-caffeine 40 mg-butalbital 50 mg (FIORICET) per 15 mL oral liquid acetaminophen 325 mg-caffeine 40 mg-butalbital 50 mg (FIORICET) per tablet Take 1 tablet by mouth every four hours as needed Max 4 per day DEXILANT 60 mg CpDM Take 1 capsule by mouth twice daily. Dexlansoprazole (DEXILANT) 60 mg CpDM diclofenac, EC, (VOLTAREN) 75 mg EC tablet Take 75 mg by mouth twice daily. doxepin capsule 10 mg glycopyrrolate (ROBINUL) 1 mg tablet glycopyrrolate (ROBINUL) 1 mg tablet Take 2 mg by mouth twice daily. hydroCHLOROthiazide (HYDRODIURIL, ESIDRIX) 25 mg tablet Take 25 mg by mouth once daily. ipratropium-albuterol (DUONEB) 0.5 mg-3 mg(2.5 mg base)/3 mL nebu levoFLOXacin (LEVAQUIN) 500 mg tablet Take 500 mg by mouth once daily. lamoTRIgine (LAMICTAL) 200 mg tablet TAKE 3 TABLETS EVERY DAY AMITIZA 24 mcg capsule Take 24 mcg by mouth twice daily. metFORMIN (GLUCOPHAGE) 500 mg tablet mometasone-formoterol (DULERA) 100-5 mcg/actuation inhaler SAVELLA 100 mg tab Take 100 mg by mouth twice daily. pioglitazone (ACTOS) 15 mg tablet roflumilast (DALIRESP) 500 mcg tab simvastatin (ZOCOR) 20 mg tablet Take 20 mg by mouth once daily. sucralfate (CARAFATE) 1 gram tablet Phentermine HCl 37.5 mg tablet Take 37.5 mg by mouth once daily. No family history on file. Social History Tobacco Use Smoking status: Former Smoker Smokeless tobacco: Never Used Substance Use Topics Alcohol use: Not on file Drug use: Not on file BP 113/67 Pulse 108 Ht 165.1 cm (5' 5 ) Wt 104.1 kg (229 lb 6.4 oz) BMI 38.17 kg/m PE; Well built and nourished. Pleasant mood. In no acute distress. Examination of the skin: She has no rashes, ulcers, nodules or tightening of the skin. Eyes: Pupils are equal in size and reactive to light. Conjunctivae are noninjected. Sclerae are anicteric. Ears, Nose, Mouth and Throat: Nasal mucosa and septum appear normal. Teeth and gums appear normal. Oropharynx is clear of erythema and exudate. Hearing is grossly normal. Neck: Supple. There is no JVD. Trachea is in the midline. There are no palpable lymph nodes or scars. Respiratory: Lungs are clear to auscultation bilaterally with no dullness to percussion. There is good air movement in all lung zones. Cardiovascular: Heart rate is regular. Nomurmur or rub is appreciated. She has no carotid or abdominal bruits. Pedal pulses are easily palpable. She has no significant edema or varicosities of his lower extremities. GI: Bowel sounds are present. Abdomen is soft and nontender without rebound or guarding. No mass ororganomegaly is noted. Lymphatic: There is no lymphadenopathy in the axillary, epitrochlear or groin regions. Psychiatric: She is alert and oriented. She has good recall of recent and remote events. Neurologic: Cranial nerves II through XII seem grossly intact. Muscle strength and muscle tone seemnormal. There is no decreased muscle mass. Musculoskeletal: She has normal gait and station. Her digits and nails appear normal. All joints were examined and were normal without pain, tenderness, swelling, deformity, deformity/sublaxation, and with full range of motion except pain on palpation of lft upper arm. MOST RECENT LABS: REVIEWED WITH PATIENT IMP/PLAN: 45 yr with h/o COPD, DM, FM, Depression and anxiety who is here for ''pulling of tendons'', pulled biceps tendon while lifting trash Patient with h/o FM- diagnosed by PCP , started on savella and that keeps sx under control Also has pain in low back Has CS injections of both knees for ''slight arthritis'' and that helps for a long time Discussed with patient at last visit- as follows-Regarding arthralgias and myalgias - DD include inflammatory arhtritis vs ealry osteoarthritis - responds well to prednisone given for COPD which suggests inflammatory component - has tried multiple nsaids in past without any improvement She returned later- labs revealed elevated crp and so started on plaquenil Since starting on plaquenil, feels about 90% better!! She returns today- doing much better since starting plaquenil. Continues to feel the plaquenil is helping significantly !! Has pain in lft arm today but thinks it is due to recent massage -will continue the plaquenil bid -recent eye exam returned normal. Regarding FM- agree with diagnosis Currently on savella which is helping Tried lyrica and gabapentin in past but stopped due to side effects F/U:6m Check following: -none [facility]inab Wood [facility]* Encounter Date Diagnosis Assessment Notes Treatment Notes Treatment Clinical Notes Dec, Osteochondrosis of lunate of right wrist (ICD-10 - M92.211) Radiographs reviewed with patient. Discussed with patient she is progressing well from surgery. Discussed with patient to continue to progress with motion and strength exercises. Instructed patient to continue with aspirin to help with blood flow. Dec, Other specified postprocedural states (ICD-10 - Z98.890) [employer] Other 03-21-2022 Evaluation note* Encounter Date Diagnosis Assessment Notes Treatment Notes Treatment Clinical Notes Nov, Arthritis of right acromioclavicular joint (ICD-10 - M19.011) Nov, Traumatic partial te ar of right biceps tendon, initial encounter (ICD-10 - S46.211A) Extensive discussion about current condition and treatment options available. A 2/1cc marcaine/kenalog cortisone injection was performed into the region of the intertubercular groove and proximal biceps tendon. Patient tolerated the injection well without adverse reaction. Maintain motion and strength with daily exercise Nov, Tear of right supraspinatus tendon (ICD-10 - M75.101) Nov, Acute pain of right shoulder (ICD-10 - M25.511) [employer] Other 03-09-2022 Evaluation note* Encounter Date Diagnosis Assessment Notes Treatment Notes Treatment Clinical Notes Nov, Osteochondrosis of lunate of right wrist (ICD-10 - M92.211) Patient instructed on gentle ROM exercises. Continue Aspirin. Prescription given for edema glove Nov, Other specified postprocedural states (ICD-10 - Z98.890) [employer] Other 01-25-2022 Evaluation note* Encounter Date Diagnosis Assessment Notes Treatment Notes Treatment Clinical Notes Sep, Osteochondrosis of lunate of right wrist (ICD-10 - M92.211) Patient will proceed with surgery on the right wrist. Risks and benefits of procedure explained to patient; patient verbalizes understanding. [employer] Other 12-15-2021 Evaluation note* Encounter Date Diagnosis Assessment Notes Treatment Notes Treatment Clinical Notes Aug, Osteochondrosis of lunate of right wrist (ICD-10 - M92.211) Right wrist injected with cortisone under sterile technique, patient tolerated well. Patient would like to proceed with surgical treatment in October [employer] Other 11-29-2021 Evaluation note* Encounter Date Diagnosis Assessment Notes Treatment Notes Treatment Clinical Notes Jul, Carpal tunnel syndrome of right wrist (ICD-10 - G56.01) [employer] Other 10-05-2021 Evaluation note* Encounter Date Diagnosis Assessment Notes Treatment Notes Treatment Clinical Notes Jun, De Quervain's tenosynovitis, right (ICD-10 - M65.4) Jun, Osteochondrosis of lunate of right wrist (ICD-10 - M92.211) Discussed with patient surgical treatment options. Patient states she would like to wait until next year to have surgery. Instructed patient to continue with aspirin. Instructed patient to continue to wear brace as needed for pain and support [employer] Other 09-22-2021 Evaluation note* Encounter Date Diagnosis Assessment Notes Treatment Notes Treatment Clinical Notes May, Tendonitis (ICD-10 - M77.9) May, Traumatic partial te ar of right biceps tendon, initial encounter (ICD-10 - S46.211A) Extensive discussion was had about the current condition and treatment options available. Allow 7-10 days for bicep pain to settle down. Once arm is starting to feel better patient instructed to work on strengthening and motion. We discussed ordering an MRI patient declined. We can inject in the future as needed May, Arthritis of right acromioclavicular joint (ICD-10 - M19.011) May, Acute pain of right shoulder (ICD-10 - M25.511) May, De Quervain's tenosynovitis, right (ICD-10 - M65.4) May, Tenosynovitis (ICD-1 0 - M65.9) May, Tear of right supraspinatus tendon (ICD-10 - M75.101) [employer] Other 06-21-2021 NoteHNO ID: [id number] Author: Hu Blankenship Service: Radiology Author Type: Rn New Grad Type: Progress Notes Filed: 03/04/2021 1:11 PM Note Text: Radiology Service Progress Note PATIENT NAME: Kourtney Novak DATE OF SERVICE: March 04, 2021 TIME: 1:10 PM PATIENT IDENTITY VERIFICATION COMPLETED USING TWO (2) IDENTIFIERS: Name and Date of confirmed by patient verbally and Name and Date of confirmed by identification band. FALL SCREENING: Has the patient had 2 falls in the last year or 1 fall with injury or currently using an Ambulatory Assistive Device (Walker, Cane, Wheelchair, Crutches, etc.)? No PATIENT GENDER DATA: Female. status: : No status: NO. PATIENT RELEVANT IMPLANT DATA REVIEWED: Not Applicable RADIOLOGY DEPARTMENT: General X-ray: Exam(s) Completed: Lower Extremity X-Ray(s): Feet, Bilateral Upper Extremity X-Ray(s): Hand, right PERIPHERAL IV DATA: Not applicable SIGNED BY: Hu Blankenship March 04, 2021 1:10 [facility] Inflammatory arthritis- Primary Unspecified inflammatory polyarthropathy Myalgia Mylagia and myositis, unspecified [facility] [employer] Other evaluutuem noteNo assessment information available [facility] Work Phone: evaluation note* Diagnosis Inflammatory arthritis- Primary Unspecified inflammatory polyarthropathy Myalgia Mylagia and myositis, unspecified Fibromyalgia Mylagia and myositis, unspecified [facility] Diagnosis Medication overuse headache- Primary Drug induced headache, not elsewhere classified Brain mass Unspecified condition of brain Meningioma (HCC) Benign neoplasm of cerebral meninges Chronic daily headache Headache [facility]* Diagnosis Intracranial meningioma (HCC)- Primary Benign neoplasm of cerebral meninges [facility] Diagnosis Onset Date Resolution Status Osteochondrosis of lunate of right wrist acute Right wrist pain acute [facility] Work Phone: evaluation note* Diagnosis 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) Benign neoplasm of cerebral meninges [facility]* Diagnosis Benign neoplasm of meninges (HCC) Benign neoplasm of cerebral meninges [facility] Diagnosis Chronic daily headache Headache [facility]* Diagnosis Intracranial meningioma (HCC)- Primary Benign neoplasm of cerebral meninges [facility] Diagnosis Meningioma (HCC)- Primary Benign neoplasm of cerebral meninges Chronic daily headache Headache Intracranial meningioma (HCC) Benign neoplasm of cerebral meninges Preop testing Preoperative examination, unspecified [facility] Diagnosis Onset Date Resolution Status Osteochondrosis of lunate of right wrist acute Right wrist pain acute Acute pain of right shoulder acute Biceps tendonitis acute [facility] Work Phone: Evaluation note* Diagnosis Onset Date Resolution Status Acute pain of right shoulder acute Biceps tendonitis acute Osteochondrosis of lunate of right wrist acute Right wrist pain acute [facility] Work Phone: Evaluation note* Diagnosis Inflammatory arthritis- Primary Unspecified inflammatory polyarthropathy Fibromyalgia Mylagia and myositis, unspecified Medication monitoring encounter Encounter for therapeutic drug monitoring documented in this encounter [facility] general Narrative - Reported* Type Description Date Medical History GERD Medical History gastroparesis Medical History bipolar Medical History DM II Surgical History carpal tunnel Surgical History cystectomy-left breast Surgical History right neuroplasty, ulnar nerve at elbow 08/2020 Hospitalization History see above Hospitalization History COPD [employer] Other [facility] general Narrative - Reported* Type Description Date Medical History GERD Medical History gastroparesis Medical History bipolar Medical History DM II Medical History COPD Surgical History carpal tunnel Surgical History cystectomy-left breast Surgical History right neuroplasty, ulnar nerve at elbow 08/2020 Surgical History appendectomy 09/2021 Hospitalization History see above Hospitalization History [facility] Other [facility] Narrative - Reported* Type Description Date Medical History GERD Medical History gastroparesis Medical History bipolar Medical History DM II Medical History COPD Surgical History carpal tunnel Surgical History cystectomy-left breast Surgical History right neuroplasty, ulnar nerve at elbow 08/2020 Surgical History appendectomy 09/2021 Surgical History right wrist PIN/core decompress ion Hospitalization History see above Hospitalization History [facility] Other [facility] general Narrative - Reported* Type Description Date Medical History GERD Medical History gastroparesis Medical History bipolar Medical History DM II Medical History COPD Surgical History carpal tunnel Surgical History cystectomy-left breast Surgical History right neuroplasty, ulnar nerve at elbow 08/2020 Surgical History appendectomy 09/2021 Surgical History right wrist PIN/core decompress ion Surgical History cubital tunnel Hospitalization History see above Hospitalization History COPD [employer] Other Summary Purpose Family History No Family History Records Found Relationship Condition Age at Onset Recorded Date/T sarabjit grandparent Coronary artery disease Unknown father Epilepsy Unknown Diabetes mellitus Unknown Hepatic cirrhosis Unknown Hepatitis C virus infection Unknown Hypertension Unknown Hypercholesterolemia Unknown Not Specified Hepatitis C virus infection Unknown Relationship Condition Age at Onset Recorded Date/T sarabjit grandparent Coronary artery disease Unknown father Epilepsy Unknown Diabetes mellitus Unknown Hepatic cirrhosis Unknown Hepatitis C virus infection Unknown Hypertension Unknown Hypercholesterolemia Unknown Not Specified Hepatitis C virus infection Unknown father Unknown Relationship Condition Age at Onset Recorded Date/T sarabjit grandparent Coronary artery disease Unknown father Epilepsy Unknown Diabetes mellitus Unknown Hepatic cirrhosis Unknown Hepatitis C virus infection Unknown Hypertension Unknown Hypercholesterolemia Unknown mother Hepatitis C virus infection Unknown father Unknown Advance Directives No Advanced Directives Records Found Advance Directive Response Recorded Date/ Time Advance Directives Yes December 09 2:20pm Advance Directive Response Recorded Date/ Time Advance Directives Yes December 09 1:20pm Chief Complaint and Reason for Visit Chief Complaint peroneal tendonitis L foot M79.7 E11.9 I10 I50.30 E78.5 R73.09 D64.9 M92.211 Chief Complaint M79.7 E11.9 I10 I50. 30 E78.5 R73.09 D64.9 M92.211 Urinary Tract Infection / UTI Chief Complaint Urinary Tract Infect ion / UTI Z98.890 Chief Complaint r11.2 r14.0 r14.2 K59.00 r53.83 D64.9 r53.83 Chief Complaint r11.2 r14.0 r14.2 K59.00 r53.83 D64.9 r53.83 Screening Chief Complaint r11.2 r14.0 r14.2 K59.00 r53.83 D64.9 r53.83 Screening k59.00 r53.83 Chief Complaint r11.2 r14.0 r14.2 K59.00 r53.83 D64.9 r53.83 Screening k59.00 r53.83 i10 j44.9 g54.0 g47.33 Chief Complaint d50.9 op sp rt wrist pain requested injection M79.7 Reason for Visit Osteochondrosis of l unate of right wrist Right wrist pain Chief Complaint op sp rt wrist pain requested injection M79.7 OP SP RT SHOULDER PAIN R20.2 Reason for Visit Osteochondrosis of l unate of right wrist Right wrist pain Acute pain of right shoulder Biceps tendonitis Chief Complaint op sp rt wrist pain requested injection M79.7 OP SP RT SHOULDER PAIN R20.2 e04.1 Reason for Visit Osteochondrosis of l unate of right wrist Right wrist pain Acute pain of right shoulder Biceps tendonitis Chief Complaint M79.7 OP SP RT SHOULDER PAIN R20.2 e04.1 OP SP RT WRIST PAIN Reason for Visit Acute pain of right shoulder Biceps tendonitis Osteochondrosis of lunate of right wrist Right wrist pain Chief Complaint e04.1 OP SP RT WRIST PAIN e78.5 z00.00 r73.09 d64.9 e55.9 Reason for Visit Osteochondrosis of l unate of right wrist Right wrist pain Additional Source Comments INFORMATION SOURCE (unrecogn ized section and content) DATE CREATED AUTHOR 03/10/2018 [facility] DATE CREATED AUTHOR AUTHOR'S ORGANIZ ATION 03/05/2021 [facility] DATE CREATED AUTHOR AUTHOR'S ORGANIZ ATION 10/13/2022 [facility] DATE CREATED AUTHOR AUTHOR'S ORGANIZ ATION 02/01/2024 [facility] DATE CREATED AUTHOR AUTHOR'S ORGANIZ ATION 02/02/2024 [facility] DATE CREATED AUTHOR AUTHOR'S ORGANIZ ATION 05/11/2024 [facility] DATE CREATED AUTHOR AUTHOR'S ORGANIZ ATION 05/31/2024 [facility] DATE CREATED AUTHOR AUTHOR'S ORGANIZ ATION 06/11/2024 [facility] Source Comments (unrecognize d section and content) In the event this informatio n is protected by the Federal Confidentiality of Alcohol and Drug Abuse Patient Records regulations: The Federal rules restrict any use of the information to criminally investigate or prosecute any alcohol or drug abuse patient.[facility] the event this information is protected by the Federal Confidentiality of Alcohol and Drug Abuse Patient Records regulations: The Federal rules restrict any use of the information to criminally investigate or prosecute any alcohol or drug abuse patient.[facility] HospitalIn the event this information is protected by the Federal Confidentiality of Alcohol and Drug Abuse Patient Records regulations: The Federal rules restrict any use of the information to criminally investigate or prosecute any alcohol or drug abuse patient.[facility] HospitalIn the event this information is protected by the Federal Confidentiality of Alcohol and Drug Abuse Patient Records regulations: The Federal rules restrict any use of the information to criminally investigate or prosecute any alcohol or drug abuse patient.[facility] HospitalIn the event this information is protected by the Federal Confidentiality of Alcohol and Drug Abuse Patient Records regulations: The Federal rules restrict any use of the information to criminally investigate or prosecute any alcohol or drug abuse patient.[facility] HospitalIn the event this information is protected by the Federal Confidentiality of Alcohol and Drug Abuse Patient Records regulations: The Federal rules restrict any use of the information to criminally investigate or prosecute any alcohol or drug abuse patient.[facility] HospitalIn the event this information is protected by the Federal Confidentiality of Alcohol and Drug Abuse Patient Records regulations: The Federal rules restrict any use of the information to criminally investigate or prosecute any alcohol or drug abuse patient.[facility] HospitalIn the event this information is protected by the Federal Confidentiality of Alcohol and Drug Abuse Patient Records regulations: The Federal rules restrict any use of the information to criminally investigate or prosecute any alcohol or drug abuse patient.[facility] HospitalIn the event this information is protected by the Federal Confidentiality of Alcohol and Drug Abuse Patient Records regulations: The Federal rules restrict any use of the information to criminally investigate or prosecute any alcohol or drug abuse patient.[facility] HospitalIn the event this information is protected by the Federal Confidentiality of Alcohol and Drug Abuse Patient Records regulations: The Federal rules restrict any use of the information to criminally investigate or prosecute any alcohol or drug abuse patient.[facility] HospitalIn the event this information is protected by the Federal Confidentiality of Alcohol and Drug Abuse Patient Records regulations: The Federal rules restrict any use of the information to criminally investigate or prosecute any alcohol or drug abuse patient.[facility] HospitalIn the event this information is protected by the Federal Confidentiality of Alcohol and Drug Abuse Patient Records regulations: The Federal rules restrict any use of the information to criminally investigate or prosecute any alcohol or drug abuse patient.[facility] HospitalIn the event this information is protected by the Federal Confidentiality of Alcohol and Drug Abuse Patient Records regulations: The Federal rules restrict any use of the information to criminally investigate or prosecute any alcohol or drug abuse patient.[facility] HospitalIn the event this information is protected by the Federal Confidentiality of Alcohol and Drug Abuse Patient Records regulations: The Federal rules restrict any use of the information to criminally investigate or prosecute any alcohol or drug abuse patient.[facility] HospitalIn the event this information is protected by the Federal Confidentiality of Alcohol and Drug Abuse Patient Records regulations: The Federal rules restrict any use of the information to criminally investigate or prosecute any alcohol or drug abuse patient.[facility] HospitalIn the event this information is protected by the Federal Confidentiality of Alcohol and Drug Abuse Patient Records regulations: The Federal rules restrict any use of the information to criminally investigate or prosecute any alcohol or drug abuse patient.[facility] HospitalIn the event this information is protected by the Federal Confidentiality of Alcohol and Drug Abuse Patient Records regulations: The Federal rules restrict any use of the information to criminally investigate or prosecute any alcohol or drug abuse patient.[facility] HospitalIn the event this information is protected by the Federal Confidentiality of Alcohol and Drug Abuse Patient Records regulations: The Federal rules restrict any use of the information to criminally investigate or prosecute any alcohol or drug abuse patient.[facility] HospitalIn the event this information is protected by the Federal Confidentiality of Alcohol and Drug Abuse Patient Records regulations: The Federal rules restrict any use of the information to criminally investigate or prosecute any alcohol or drug abuse patient.[facility] HospitalIn the event this information is protected by the Federal Confidentiality of Alcohol and Drug Abuse Patient Records regulations: The Federal rules restrict any use of the information to criminally investigate or prosecute any alcohol or drug abuse patient.[facility] HospitalIn the event this information is protected by the Federal Confidentiality of Alcohol and Drug Abuse Patient Records regulations: The Federal rules restrict any use of the information to criminally investigate or prosecute any alcohol or drug abuse patient.[facility] HospitalIn the event this information is protected by the Federal Confidentiality of Alcohol and Drug Abuse Patient Records regulations: The Federal rules restrict any use of the information to criminally investigate or prosecute any alcohol or drug abuse patient.[facility] HospitalIn the event this information is protected by the Federal Confidentiality of Alcohol and Drug Abuse Patient Records regulations: The Federal rules restrict any use of the information to criminally investigate or prosecute any alcohol or drug abuse patient.[facility] HospitalIn the event this information is protected by the Federal Confidentiality of Alcohol and Drug Abuse Patient Records regulations: The Federal rules restrict any use of the information to criminally investigate or prosecute any alcohol or drug abuse patient.[facility] HospitalIn the event this information is protected by the Federal Confidentiality of Alcohol and Drug Abuse Patient Records regulations: The Federal rules restrict any use of the information to criminally investigate or prosecute any alcohol or drug abuse patient.[facility] HospitalIn the event this information is protected by the Federal Confidentiality of Alcohol and Drug Abuse Patient Records regulations: The Federal rules restrict any use of the information to criminally investigate or prosecute any alcohol or drug abuse patient.[facility] HospitalIn the event this information is protected by the Federal Confidentiality of Alcohol and Drug Abuse Patient Records regulations: The Federal rules restrict any use of the information to criminally investigate or prosecute any alcohol or drug abuse patient.[facility] HospitalIn the event this information is protected by the Federal Confidentiality of Alcohol and Drug Abuse Patient Records regulations: The Federal rules restrict any use of the information to criminally investigate or prosecute any alcohol or drug abuse patient.[facility] HospitalIn the event this information is protected by the Federal Confidentiality of Alcohol and Drug Abuse Patient Records regulations: The Federal rules restrict any use of the information to criminally investigate or prosecute any alcohol or drug abuse patient.[facility] HospitalIn the event this information is protected by the Federal Confidentiality of Alcohol and Drug Abuse Patient Records regulations: The Federal rules restrict any use of the information to criminally investigate or prosecute any alcohol or drug abuse patient.[facility] HospitalIn the event this information is protected by the Federal Confidentiality of Alcohol and Drug Abuse Patient Records regulations: The Federal rules restrict any use of the information to criminally investigate or prosecute any alcohol or drug abuse patient.[facility] HospitalIn the event this information is protected by the Federal Confidentiality of Alcohol and Drug Abuse Patient Records regulations: The Federal rules restrict any use of the information to criminally investigate or prosecute any alcohol or drug abuse patient.[facility] HospitalIn the event this information is protected by the Federal Confidentiality of Alcohol and Drug Abuse Patient Records regulations: The Federal rules restrict any use of the information to criminally investigate or prosecute any alcohol or drug abuse patient.[facility] HospitalIn the event this information is protected by the Federal Confidentiality of Alcohol and Drug Abuse Patient Records regulations: The Federal rules restrict any use of the information to criminally investigate or prosecute any alcohol or drug abuse patient.[facility] HospitalIn the event this information is protected by the Federal Confidentiality of Alcohol and Drug Abuse Patient Records regulations: The Federal rules restrict any use of the information to criminally investigate or prosecute any alcohol or drug abuse patient.[facility] Reason for Visit (unrecogniz ed section and content) Reason Comments New Patient Reason Comments Follow Up Reason Comments Orders Plaquenil Reason Comments Refill Request Reason Onset Date Comments Refill Request 03/07/2023 Reason Onset Date Comments Refill Request 04/13/2023 Reason Comments TRIAGE Reason Comments Headache Specialty Diagnoses / Procedures Referred By Contac t Referred To Contact Diagnoses Brain mass Procedures CONSULT TO HEADACHE CLINIC OFFICE/OUTPATIENT [facility] 60-74 MINUTES Montse Lou DO, PhD [address] [facility] [address] [place] [id number] Referral ID Status Reason Start Date Expiration Date V isits Requested Visits Authorized [id number] Closed PCP Requested Referral 06/01/2023 05/31/2024 1 1 Reason Comments Patient Update Discuss Surgery March 2024 Reason Comments Consult Reason Comments Care Coordination follow up Reason Onset Date Comments Refill Request 11/10/2023 Reason Onset Date Comments Refill Request 11/12/2023 Reason Comments Lab Orders/FAX Reason Comments Schedule Surgery Reason Comments Schedule Surgery Surgery Planning Reason Onset Date Comments Refill Request 01/27/2024 Specialty Diagnoses / Procedures Referred By Contac t Referred To Contact CT IMAGING Diagnoses 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) Procedures CT BRAIN STEREOLOCAL WO IVCON CT GUIDANCE STEREOTACTIC LOCALIZATION Erik Pineda MD [address] [place] [address] Ct Imaging [place] [address] Referral ID Status Reason Start Date Expiration Date V isits Requested Visits Authorized [id number] Closed Auto-Generate d Referral 01/19/2024 02/17/2025 1 1 Specialty Diagnoses / Procedures Referred By Contac t Referred To Contact MR IMAGING Diagnoses Benign neoplasm of meninges (HCC) Procedures MRI SKULL BASE WO/W IVCON MRI BRAIN BRAIN STEM W/O W/CONTRAST MATERIAL Erik Pineda MD [address] [place] [address] Mr Imaging [place] [address] Referral ID Status Reason Start Date Expiration Date V isits Requested Visits Authorized [id number] Closed Auto-Generate d Referral 01/19/2024 02/17/2025 1 1 Reason Comments Appointment Reason Comments Established Patient Pre op consent Reason Comments Daily Headache Reason Comments epidural steroid injection Reason Comments Insurance Authorization Robax[employer] [place] - Medicare / [employer]. Reason Onset Date Comments Refill Request 05/25/2024 Reason Comments Joint Pain Care Teams (unrecognized sec tion and content) Team Status: Active Member Role Status Dates Sammie Gonzalez MD Primary Care Provider Active Team Status: Inactive Member Role Status Dates Sammie Gonzalez MD Primary Care Provider Active Russell Shields MD Attending Provider Active Team Status: Inactive Member Role Status Dates Sammie Gonzalez MD Primary Care Provider, Attending Pr ovider Active Educational Consultant Relationship Specialty Start Date End Date Sammie Gonzalez MD [address] [place] [id number] Referring Family Practice 01/14/21 Team Status: Inactive Member Role Status Dates Sammie Gonzalez MD Primary Care Provider Active Elyssa Gomes MD Attending Provider Active Team Status: Inactive Member Role Status Dates Sammie Gonzalez MD Primary Care Provider Active Gunner Cummings DPM MS Attending Provider Active Educational Consultant Relationship Specialty Start Date End Date Sammie Gonzalez MD [address] [place] [phone] Referring Family Medicine 01/14/21 Educational Consultant Relationship Specialty Start Date End Date Sammie Gonzalez MD [address] [place] [phone] Referring Family Medicine 01/14/21 Educational Consultant Relationship Specialty Start Date End Date Sammie Gonzalez MD Referring Family Medicine 01/14/21 Educational Consultant Relationship Specialty Start Date End Date Sammie Gonzalez MD Referring Family Medicine 01/14/21 Educational Consultant Relationship Specialty Start Date End Date Sammie Gonzalez MD Referring Family Medicine 01/14/21 Educational Consultant Relationship Specialty Start Date End Date Sammie Gonzalez MD Referring Family Medicine 01/14/21 Educational Consultant Relationship Specialty Start Date End Date Sammie Gonzalez MD Referring Family Medicine 01/14/21 Team Status: Inactive Member Role Status Dates Sammie Gonzalez MD Primary Care Provider Active Zeinab Mckinney ([facility]) , LINE INSTALLER REPAIRER Attending Provider Active Educational Consultant Relationship Specialty Start Date End Date Sammie Gonzalez MD [address] [place] [facility] [place] [address] PCP - General Family Medicine 05/12/23 Sammie Gonzalez MD Referring Family Medicine 01/14/21 Sammie Gonzalez MD [address] [place] [facility] [address] Referring Family Medicine 05/12/23 Educational Consultant Relationship Specialty Start Date End Date Sammie Gonzalez MD [address] [place] [facility] [address] PCP - General Family Medicine 05/12/23 Sammie Gonzalez MD Referring Family Medicine 01/14/21 Sammie Gonzalez MD [address] [place] [facility] [address] Referring Family Medicine 05/12/23 Educational Consultant Relationship Specialty Start Date End Date Sammie Gonzalez MD [address] [place] [facility] [place] [address] PCP - General Family Medicine 05/12/23 Sammie Gonzalez MD Referring Family Medicine 01/14/21 Sammie Gonzalez MD [address] [place] [facility] [address] Referring Family Medicine 05/12/23 Educational Consultant Relationship Specialty Start Date End Date Sammie Gonzalez MD [address] [place] [facility] [place] [address] PCP - General Family Medicine 05/12/23 Sammie Gonzalez MD Referring Family Medicine 01/14/21 Sammie Gonzalez MD [address] [place] [facility] [place] [address] Referring Family Medicine 05/12/23 Educational Consultant Relationship Specialty Start Date End Date Sammie Gonzalez MD [address] [place] [facility] [address] PCP - General Family Medicine 05/12/23 Sammie Gonzalez MD Referring Family Medicine 01/14/21 Sammie Gonzalez MD [address] [place] [facility] [address] Referring Family Medicine 05/12/23 Educational Consultant Relationship Specialty Start Date End Date Sammie Gonzalez MD [address] [facility] [place] [address] PCP - General Family Medicine 05/12/23 Sammie Gonzalez MD Referring Family Medicine 01/14/21 Sammie Gonzalez MD [address] [facility] [place] [address] Referring Family Medicine 05/12/23 Educational Consultant Relationship Specialty Start Date End Date Sammie Gonzalez MD [address] [facility] [place] [address] PCP - General Family Medicine 05/12/23 Sammie Gonzalez MD Referring Family Medicine 01/14/21 Sammie Gonzalez MD [address] [place] [address] Referring Family Medicine 05/12/23 Educational Consultant Relationship Specialty Start Date End Date Sammie Gonzalez MD [address] [place] [address] PCP - General Family Medicine 05/12/23 Sammie Gonzalez MD Referring Family Medicine 01/14/21 Sammie Gonzalez MD [address] [facility] [place] [address] Referring Family Medicine 05/12/23 Educational Consultant Relationship Specialty Start Date End Date Sammie Gonzalez MD [address] [facility] [place] [address] PCP - General Family Medicine 05/12/23 Sammie Gonzalez MD Referring Family Medicine 01/14/21 Sammie Gonzalez MD [address] [place] [address] Referring Family Medicine 05/12/23 Team Status: Inactive Member Role Status Dates Sammie Gonzalez MD Primary Care Provide r, Attending Provider Active Start: November 11, 2023 End: November 11, 2023 Team Status: Inactive Member Role Status Dates Sammie Gonzalez MD Primary Care Provider Active Start: November 25, 2023 End: November 25, 2023 Elyssa Gomes MD Attending Provider Active Start: November 25, 2023 End: November 25, 2023 Team Status: Inactive Member Role Status Dates Sammie Gonzalez MD Primary Care Provider Active Start: January 08, 2024 End: January 08, 2024 Zeinab Wood MD Attending Provider Active Star t: January 08, 2024 End: January 08, 2024 Educational Consultant Relationship Specialty Start Date End Date Sammie Gonzalez MD [address] [place] [address] PCP - General Family Medicine 05/12/23 Sammie Gonzalez MD Referring Family Medicine 01/14/21 Sammie Gonzalez MD [address] [place] [address] Referring Family Medicine 05/12/23 Educational Consultant Relationship Specialty Start Date End Date Sammie Gonzalez MD [address] [place] [address] PCP - General Family Medicine 05/12/23 Sammie Gonzalez MD Referring Family Medicine 01/14/21 Sammie Gonzalez MD [address] [place] [address] Referring Family Medicine 05/12/23 Educational Consultant Relationship Specialty Start Date End Date Sammie Gonzalez MD [address] [place] [address] PCP - General Family Medicine 05/12/23 Sammie Gonzalez MD Referring Family Medicine 01/14/21 Sammie Gonzalez MD [address] [place] [address] Referring Family [facility] 05/12/23 Team Status: Inactive Member Role Status Dates Sammie Gonzalez MD Primary Care Provider Active Start: January 26, 2024 End: January 26, 2024 CONRADO AntonioC Attending Provider Active Start: January 26, 2024 End: January 26, 2024 Team Status: Inactive Member Role Status Dates Sammie Gonzalez MD Primary Care Provide r, Attending Provider Active Start: February 09, 2024 End: February 09, 2024 Team Status: Inactive Member Role Status Dates Sammie Gonzalez MD Primary Care Provide r, Attending Provider Active Start: February 15, 2024 End: February 15, 2024 Team Status: Inactive Member Role Status Dates Sammie Gonzalez MD Primary Care Provider Active Start: March 04, 2024 End: March 04, 2024 Elyssa Gomes MD Attending Provider Active Start: March 04, 2024 End: March 04, 2024 Educational Consultant Relationship Specialty Start Date End Date Sammie Gonzalez MD [address] [place] [address] PCP - General Family Medicine 05/12/23 Sammie Gonzalez MD Referring Family Medicine 01/14/21 Sammie Gonzalez MD [address] [facility] [place] [address] Referring Family Medicine 05/12/23 Educational Consultant Relationship Specialty Start Date End Date Sammie Gonzalez MD [address] [place] [address] PCP - General Family Medicine 05/12/23 Sammie Gonzalez MD Referring Family Medicine 01/14/21 Sammie Gonzalez MD [address] [facility] [place] [address] Referring Family Medicine 05/12/23 Educational Consultant Relationship Specialty Start Date End Date Sammie Gonzalez MD [address] [facility] [place] [address] PCP - General Family Medicine 05/12/23 Sammie Gonzalez MD Referring Family Medicine 01/14/21 Sammie Gonzalez MD [address] [place] [address] Referring Family Medicine 05/12/23 Team Status: Inactive Member Role Status Dates Sammie Gonzalez MD Primary Care Provide r, Attending Provider Active Start: May 12, 2024 End: May 12, 2024 Educational Consultant Relationship Specialty Start Date End Date Sammie Gonzalez MD [address] [place] [address] PCP - General Family Medicine 05/12/23 Sammie Gonzalez MD Referring Family Medicine 01/14/21 Sammie Gonzalez MD [address] [place] [address] Referring [facility] 05/12/23 Educational Consultant Relationship Specialty Start Date End Date Sammie Gonzalez MD [address] [place] [address] PCP - General Family Medicine 05/12/23 Sammie Gonzalez MD Referring Family [facility] 01/14/21 Sammie Gonzalez MD [address] [place] [address] Referring [facility] 05/12/23 Goals (unrecognized section and content) Goals may be documented in a n alternate section FOR RECORDS PERTAINING TO PATIENTS WHO ARE OR HAVE BEEN ENROLLED IN A CHEMICAL DEPENDENCY/SUBSTANCEABUSE PROGRAM, SOME INFORMATION MAY BE OMITTED. This clinical summary was aggregated from multiple sources. Caution should be exercised in using it in the provision of clinical care. This summary normalizes information from multiple sources, and as a consequence, information in this document may materially change the coding, format and clinical context of patient data. In addition, data may be omitted in some cases. CLINICAL DECISIONS SHOULD BE BASED ON THE PRIMARY CLINICAL RECORDS. [email or web address] provides no warranty or guarantee of the accuracy or completeness of information in this document.
[2024-06-20 07:14] VITALS: BP 119/77; PULSE 94; TEMP 36.4; O2SAT 97
[2024-06-20 07:21] LABS: Glucometer 103 mg/dL (74-106)
[2024-06-20 07:43] VITALS: BP 134/78; PULSE 89; O2SAT 98
[2024-06-20 07:44] VITALS: BP 143/87; PULSE 91; O2SAT 95
[2024-06-20] MEDS: BUPIVACAINE HCL 0.25% PF 25 MG/10 ML VIAL 6 ML INJ (07:47)
--- NOTE | 2024-06-20 07:47 | W.PM.PROCNOT ---
Date of procedure: 06/20/24 Pre-op diagnosis: Pain due to cervical spondylosis without myelopathy Post-op diagnosis: same as pre-op Procedure: Procedure: Bilateral C4-5, 5-6 medial branch block Medications: Bupivacaine 0.25% 6cc The patient was seen and examined in the preoperative holding area.? The informed consent was obtained and placed on the chart.? The patient was brought to the medical procedure unit and placed in the prone position.? A timeout was completed verifying correct patient, procedure site, positioning, plan, and special equipment.? Using aseptic technique, the needle was placed at left C4.? Under direct fluoroscopic visualization, a Quincke tip needle was advanced to the midpoint of the waist of the articular pillar at the respective medial branch segment. The above-mentioned injectate was placed in a 1 mL aliquot proceeded by negative aspiration.? The needle was removed.? The procedure was completed at all left C5, 6. The same procedure, at the same levels, was then completed on the right side. Insertion site was covered.? Patient was taken to the postprocedural recovery area and monitored for an appropriate length of time before found suitable for discharge in the accompaniment of a responsible adult. Anesthesia: Local Surgeon: Ridge Hollingsworth Pathology: none sent Condition: stable Disposition: no change
[2024-06-20] MEDS: LIDOCAINE HCL 2% 400 MG/20 ML MDV INJ (07:48)
== END 2024-06-20 07:51 | disposition home or self-care (01) ==
LOC: SURGOUT 07:00
PROVIDERS: PCP Family Medicine; Visit Provider Anesthesiology
DX: M47.812 Spondylosis without myelopathy or radiculopathy, cervical region (principal); Z79.84 Long term (current) use of oral hypoglycemic drugs
CPT/HCPCS: 36415; 64490; 64491; 82948; J0665

== ENCOUNTER 2024-06-22 13:45 | Outpatient (OUT) | payer MEDICARE, MEDICAID, SELFPAY ==
--- NOTE | 2024-06-22 14:04 | P.CN_ITS ---
Consult Note: HPI Data of Consult Patient: known to practice within the last 3 years Consult date: 03/07/24 Requesting Physician: Chantal Ocampo NP Primary Care Provider: Jesus Camacho MD Consult Narrative Reason for consult: chronic neck pain Narrative: 48yof who presents for evaluation. longstanding neck pain. recently evaluated by back surgeon, who recommended injection therapy prior to surgical intervention. imaging reviewed, which is significant for moderate to severe stenosis at l5-s1, as well as cervical spondylosis and moderate to severe foraminal narrowing at multiple cervical levels, worst at c6-7. she has engaged in a series of provider directed home exercises >6 weeks without lasting benefit. uses ibuprofen as needed. denies adverse med side effects. recently underwent bilateral C4-5 C5-6 facet medial branch block #1 with 90% improvement in pain and functional ability immediately following and hours after the procedure, postop pain 0/10 for 4 hours following the procedure. cc:: CC: Chantal Ocampo NP Review of Systems ROS Status of ROS 10 or more systems reviewed and unremark able except as noted in history and below Musculoskeletal Reports: back pain and neck pain PFSH PFSH Medical History (Updated 05/26/24 @ 14:08 by Chantal Ocampo NP) Kienb?ck's disease ?M92.219 - 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], unspecified hand (ICD-10) History of smoking ?Z87.891 - Personal history of nicotine dependence (ICD-10) Carpal tunnel syndrome ?G56.00 - Carpal tunnel syndrome, unspecified upper limb (ICD-10) Obesity ?E66.9 - Obesity, unspecified (ICD-10) Anemia ?D64.9 - Anemia, unspecified (ICD-10) Anxiety ?F41.9 - Anxiety disorder, unspecified (ICD-10) Acid reflux ?K21.9 - Gastro-esophageal reflux disease without esophagitis (ICD-10) Diabetes 1.5, managed as type 2 ?E13.9 - Other specified diabetes mellitus without complications (ICD-10) Hypertension ?I10 - Essential (primary) hypertension (ICD-10) High cholesterol ?E78.00 - Pure hypercholesterolemia, unspecified (ICD-10) Surgical History H/O resection of rib ?Z98.890 - Other specified postprocedural states (ICD-10) History of surgery on arm ?Z98.890 - Other specified postprocedural states (ICD-10) H/O breast biopsy ?Z98.890 - Other specified postprocedural states (ICD-10) History of carpal tunnel surgery ?Z98.890 - Other specified postprocedural states (ICD-10) History of appendectomy ?Z90.49 - Acquired absence of other specified parts of digestive tract (ICD- 10) Meds Home Medications and Allergies Home Medications ?Medication ?Instructions ?Recorded ?Confirmed ?Type brexpiprazole 2 mg tablet (Rexulti) 2 mg PO DAILY 02/17/23 06/20/24 History budesonide 1 mg/2 mL suspension 1 mg inhalation Q12H 02/17/23 06/20/24 History for nebulization dapagliflozin propanediol 5 mg 5 mg PO DAILY 02/17/23 06/20/24 History tablet (Farxiga) dexlansoprazole 60 mg 60 mg PO BID 02/17/23 06/20/24 History capsule,biphase delayed release duloxetine 30 mg capsule,delayed 30 mg PO DAILY 02/17/23 06/20/24 History release glycopyrrolate 1 mg tablet 1 mg PO Q8H PRN secretions 02/17/23 06/20/24 History hydroxychloroquine 200 mg tablet 200 mg PO BID 02/17/23 06/20/24 History ibuprofen 800 mg tablet 800 mg PO Q6H PRN fever or pain 02/17/23 06/20/24 History ipratropium 0.5 mg-albuterol 3 mg 3 ml inhalation Q6H PRN shortness 02/17/23 06/20/24 History (2.5 mg base)/3 mL nebulization of breath soln lamotrigine 200 mg tablet 200 mg PO Q8H 02/17/23 06/20/24 History lisinopril 10 mg tablet 10 mg PO DAILY 02/17/23 06/20/24 History lubiprostone 24 mcg capsule 24 mcg PO BID 02/17/23 06/20/24 History metformin 500 mg tablet 1,000 mg PO BID 02/17/23 06/20/24 History ondansetron HCl 4 mg tablet 4 mg PO Q8H PRN nausea and vomiting 02/17/23 06/20/24 History pioglitazone 15 mg tablet 15 mg PO DAILY 02/17/23 06/20/24 History simvastatin 20 mg tablet 20 mg PO DAILY 02/17/23 06/20/24 History vilazodone 40 mg tablet (Viibryd) 40 mg PO DAILY 02/17/23 06/20/24 History budesonide 1 mg/2 mL suspension 1 mg inhalation DAILY 03/08/24 06/20/24 History for nebulization (Pulmicort) dexlansoprazole 60 mg 60 mg PO DAILY 03/08/24 06/20/24 History capsule,biphase delayed release (Dexilant) etodolac 400 mg tablet (Lodine) 400 mg PO Q12H PRN pain 03/08/24 06/20/24 History nortriptyline 25 mg capsule 25 mg PO DAILY 03/08/24 06/20/24 History Allergies Allergy/AdvReac Type Severity Reaction Status Date / Time No Known Drug Allergies Allergy Verified 06/20/24 07:16 Exam Constitutional Documenting provider has reviewed patient's vital signs: yes Common normals: no apparent distress, oriented x3, healthy appearing, alert and well nourished General appearance: cooperative [facility] Common normals: normocephalic, hearing grossly normal bilaterally and moist oral mucous membranes Head and scalp: normocephalic Eye Common normals: PERRL Pupil: PERRL Neck & C-Spine Common normals: full ROM General: normal visual inspection Cervical spine: pain with cervical ROM and cervical spine tenderness; no paracervical muscle tenderness, no paracervical muscle spasm and no trapezius muscle tenderness Other: facet loading to C2-5 facets, left greater than right no tenderness over bilateral occipital nerves negative spurlings strength 5/5 in BUE Chest Common normals: inspection of chest normal Respiratory Common normals: normal respiratory effort, no retractions and no use of accessory muscles Back & Pelvis Lumbar spine/lower back: normal to inspection, lumbar ROM normal and straight leg raise negative bilaterally Sacroiliac joints: SI joints normal Other: sensation intact BLE strength 5/5 in BLE Extremity Common normals: normal to inspection and full ROM Neuro Common normals: oriented x3, CN's II-XII intact bilaterally, moves all extremities, no focal motor deficits, no sensory deficits noted and deep tendon reflexes 2+ bilaterally Sensorium/orientation: alert Motor exam: strength 5/5 throughout and no movement abnormalities noted Psych Common normals: mental status grossly normal, thought process normal, cooperative, affect normal, speech normal and activity/motor behavior normal Speech: normal speech Thought process: normal thought process Results Additional Findings Additional findings: If on a controlled substance or opioids, I have checked an [place] report on this patient and there are no aberrancies noted in the prescribing history.??If on a controlled substance or opioid a drug screen was completed and reviewed within the last year, and if there has not been a drug screen completed we ordered one today to monitor higher risk, state monitored pain medication use. As part of providing excellent, safe, comprehensive care, the following was completed at our patient's visit: 1. A medication reconciliation and review to ensure accurate knowledge of current/active medications, including asking our patients to inform us about any [id number] medications or herbal remedies/nutritional supplements/alternative remedies. 2. A review to specifically ensure our patients have had annual screening for screening for depression, screening for tobacco use, and screening for unhealthy alcohol use. For concerning screenings had a discussion with the patient, provided patient education, and recommended follow-up with primary care provider when appropriate. If patient noted with a risk of falling, they received education on strength, gait, and balance training to prevent future risk of falling. Assessment and Plan Assessment and Plan (1) Cervical spondylosis: Assessment and Plan: The patient has had over 3 months of moderate to severe neck pain with functional impairment and inadequate response to conservative care including NSAIDS (unless there are contraindication such as concurrent blood thinners), multiple oral or topical pain medications, and home exercise program/physical therapy.? Patient has completed >6 weeks of guided home exercise program and/or formal physical therapy program without relief of their symptoms.? I have reviewed the imaging of the cervical spine and no red flags were identified.? The imaging reveals radiographic findings consistent with cervical spondylosis We discussed the risks and benefits of the procedure with the patient, and we are NOT planning on using sedation as outlined in the guidelines from Medicare unless there is a documented reason that sedation would be strongly recommended.??The procedure will be completed with fluoroscopic guidance.? (2) Lumbar spondylosis: Plan proceed with bilateral C4-5 C5-6 facet medial branch block #2 working towards RFA continue current medications f/u after injection
== END 2024-06-22 13:46 | disposition home or self-care (01) ==
LOC: PM 13:46
PROVIDERS: PCP Family Medicine; Visit Provider Nurse Practitioner
DX: M47.812 Spondylosis without myelopathy or radiculopathy, cervical region (principal); M47.816 Spondylosis without myelopathy or radiculopathy, lumbar region
CPT/HCPCS: G0463

== ENCOUNTER 2024-07-04 06:53 | Day surgery (SDC) | payer MEDICARE, MEDICAID, SELFPAY ==
--- OUTSIDE RECORDS SUMMARY | 2024-07-04 06:57 | XMS_ITS | CCD ---
Author Organization [facility] Clini[facility] Care Team Providers Care Perinatal Tech Name Role Phone PHYSICIAN, DEFAULT Unavailable Unavailable PHYSICIAN, DEFAULT Unavailable Unavailable Sammie Gonzalez MD Unavailable Beti Bowles Unavailable Elyssa Gomes Unavailable MD Sammie Gonzalez Primary Care Provider [phone] HUMAIRA Cummings Attending Provider MD Sammie Gonzalez Attending Provider MD Elyssa Gomes Attending Provider [phone] MD Sammie Gonzalez Primary Care Provider [phone] MD Sammie Gonzalez Attending Provider MD Elyssa Gomes Attending Provider MD Sammie Gonzalez Primary Care Provider [phone] MD Sammie Gonzalez Attending Provider MD Elyssa Gomes Attending Provider [phone] Sammie Gonzalez MD Unavailable DR SAMMIE GONZALEZ [...] 3 MD Russell Shields Attending Provider MD Sammei Gonzalez Attending Provider Hank ([facility]), HOME CARE ADMINISTRATOR Zeinab Platt Attending Provider [phone] Sammie Gonzalez MD Unavailable Sammie Gonzalez MD Primary Care Provider [phone] Sammie Gonzalez MD Unavailable Sammie Gonzalez MD Primary Care Provider [phone] Sammie Gonzalez MD Primary Care Provider [phone] MD Sammie Gonzalez Primary Care Provider [phone] MD Sammie Gonzalez Attending Provider MD Zeinab Wood Attending Provider PINEDA, ERIK F Referring Unavailable HOY, SAMMIE M Primary Care Unavailable PINEDA, ERIK F Referring Unavailable HOY, SAMMIE M Primary Care Unavailable WANDY PHILLIPS Attending Unavailable YOLA CARABALLO Attending Unavailable MD Sammie Gonzalez Primary Care Provider [phone] MD Sammie Gonzalez Attending Provider MD Sammie Gonzalez Primary Care Provider [phone] MD Sammie Gonzalez Attending Provider HOYSAMMIE M Primary Care Unavailable ZEINAB WOOD Attending Unavailable HOY, SAMMIE M Primary Care Unavailable RACHELE FENTON Attending Unavailable ZEINAB WOOD Attending Unavailable HOY, SAMMIE M Primary Care Unavailable MONTSE LOU Referring Unavailable PINEDA, ERIK Attending Unavailable HOY, SAMMIE M Primary Care Unavailable MONTSE LOU Referring Unavailable FAHAD LUONG Attending Unavailable HOY, SAMMIE M Primary Care Unavailable LOUJOSEN Referring Unavailable LOUMONTSE Attending Unavailable HOY, SAMMIE M Primary Care Unavailable HOY, SAMMIE M Primary Care Unavailable MD Sammie Gonzalez Primary Care Provider [phone] MD Sammie Gonzalez Attending Provider Darrick MCGHEE, Ridge Garcia Attending Unavailable Darrick MCGHEE, Ridge Garcia Attending Unavailable Darrick MCGHEE, Ridge Garcia Attending Unavailable Darrick MCGHEE, Ridge Garcia Attending Unavailable Hoy, Sammie M Admitting Unavailable Hoy, Sammie M Attending Unavailable Hoy, Sammie M Primary Care Unavailable Zeinab Wood Admitting Unavailable Zeinab Wood Attending Unavailable Hoy, Sammie M Primary Care Unavailable Hoy, Sammie M Admitting Unavailable Hoy, Sammie M Attending Unavailable Hoy, Sammie M Primary Care Unavailable Hoy, Sammie M Admitting Unavailable Hoy, Sammie M Attending Unavailable Hoy, Sammie M Primary Care Unavailable Hoy, Sammie M Admitting Unavailable Hoy, Sammie M Attending Unavailable Hoy, Sammie M Primary Care Unavailable Hoy, Sammie M Admitting Unavailable Hoy, Sammie M Attending Unavailable Hoy, Sammie M Primary Care Unavailable Medications Current Medications Medication [...] oral liquid take 1 capsule by mo uth every four hours Fioricet 50-300-40 MG 1 capsule as needed Orally every 4 hrs Active Comment on above: Take 1 tablet by adrian th every four hours as needed Max 4 per day acetaminophen 325 mg / HYDROcodone bitartrate 5 mg oral tablet (20 sources) Opioid Agonist Start: 02-10-202 2 take 1 tablet by mouth every [...] ORAL) Active take 1 capsule by mo ut three times daily as needed Tessalon Perles 100 MG 1 capsule as need ed Orally Three times a day Active benzonatate (TAYLOR SALON PERLES ORAL) brexpiprazole 2 mg oral tablet (20 sources) Atypical Antipsychotic Start: 10-28-2018 take 1 tablet by mouth once daily Brexpiprazole (Rexulti) 2 mg tablet Active 2 MG PO Daily October 28, 2018 1:00am Comment on above: Take 2 mg by mouth o nce daily. budesonide 0.5 mg/ml inhalation suspension (20 sources) Corticosteroid Start: 09-11-2020 End: 06-26-2023 take 1 mg by inhalation once daily in the morning Budesonide (Pulmicort) 1 mg/2 mL suspension for nebulization Active 1 MG INHALATION Every morning September 11, 2020 1:00am take 4 mL by inhalation four salima [...] Comment on above: Take 1 capsule by [facility] twice daily. Dexlansoprazole (Dexilant) 60 mg capsule,biphase delayed releas (17 sources) Start: take 1 capsule by mouth twice daily Dexlansoprazole (Dexilant) 60 mg capsule,biphase delayed releas Active 60 MG PO Twice daily October 10, 2021 12:00am Start: 10-10-2021 take 1 capsule by [facility] twice daily Dexlansoprazole (Dexilant) 60 mg capsule,biphase delayed releas Active 60 MG PO Twice daily October 10, 2021 1:00am docusate sodium 50 mg / sennosides, pen[facility] 8.6 mg oral tablet (1 source) take 1 tablet by mouth every twelve hours Senokot S 8.6-50 MG 1 tablet as needed Orally Twice a day Active doxepin hydrochloride 10 mg oral capsule (20 sources) Tricyclic Antidepressant Start: take 10 mg by mouth three times daily Doxepin Active 10 MG PO Three times daily October 28, 2018 1:00am take 1 capsule by [facility] every twenty-four hours Doxepin HCl 10 MG 1 capsule at bedtime Orally Once a day Active doxycycline hyclate 100 mg oral tablet (17 sources) Tetracycline-class Drug Start: 10-24-2021 take 100 [...] Active Start: 10-01-2023 take 1 tablet by adrian once daily DULoxetine (CYMBALTA) 60 mg capsule [...] Comment on above: Take 1 capsule by [facility] once daily. TAKE 1 CAPSULE BY [facility] EVERY DAY etodolac 400 mg oral tablet (20 sources) Nonsteroidal Anti-inflammatory Drug Start: 4 End: 4 take 1 tablet by mouth [...] Antirheumatic Agent Star t: 06-15 End: 05-15 24 take 1 tablet by mouth twice daily Hydroxychloroquine (Plaquenil) 200 mg Tablet Active 200 MG PO Twice daily September 17, 2021 1:00am Comment on above: Take 1 tablet by adrian th twice daily. TAKE 1 TABLET BY ADRIAN TH TWICE DAILY Take 1 tablet by adrian th two times a day. ipratropium bromide 0.2 mg/ml inhalation solution (17 sources) Anticholinergic Star t: 08-15 take 0.5 mg by inhalation every six hours Ipratropium [place] Active 0.5 MG INHALATION Q6H September 11, [...] 12, 2017 1:00am take 1 tablet by [facility] every twenty-four hours lamoTRIgine 200 MG 1 [...] breakfast. Active lisinopril 10 mg oral tablet (17 sources) Angiotensin Converting Enzyme Inhibitor Start: 09-11-20 take 10 mg by mouth once daily Lisinopril Active 10 MG PO Daily September 11, 2020 1:00am lubiprostone 0.024 mg oral capsule (20 sources) Chloride Channel Activator Start: 02-17-20 take 1 capsule by mouth twice daily AMITIZA 24 mcg capsule Take 24 mcg by mouth twice daily. 02/16/2021 Active Start: 10-28-2018 take 1 capsule by [facility] twice daily Lubiprostone (Amitiza) 24 mcg capsule Active 24 MCG PO Twice daily October 28, 2018 12:00am Start: 10-28-2018 take 1 capsule by [facility] twice daily Lubiprostone (Amitiza) 24 mcg capsule Active 24 MCG PO Twice daily October 28, 2018 1:00am take 1 capsule by [facility] twice daily at mealtime Amitiza 24 MCG [...] Toprol XL Active nortriptyline 25 mg oral tablet (20 sources) Tricyclic Antidepressant Start: 11-25-2023 Nortriptyline Active 25 MG PO November 25, 2023 12:00am Start: 06-26-2023 End: 02-05-2024 take 1 capsule by mouth once daily at bedtime nortriptyline (PAMELOR) 25 mg capsule Indications: Chronic daily headache Take 1 capsule by mouth daily at bedtime. 90 capsule 3 02/05/2024 Active Comment on above: Take 1 capsule by mo uth daily at bedtime. ondansetron 4 mg disintegrating oral tablet (17 sources) Serotonin-3 Receptor Antagonist Start: 022 take [...] po qd raNITIdine 300 mg oral tablet (17 sources) Histamine-2 Receptor Antagonist Start: 09-12-20 take 300 mg by mouth once daily [...] sources) HMG-CoA Reductase Inhibitor Start: 10-28-2018 take 20 mg by mouth once daily Simvastatin Active 20 MG PO Daily October 28, 2018 1:00am Comment on above: Take 20 mg by [...] as needed. topiramate 50 mg oral tablet (17 sources) Start: 10-24-2021 take 1 tablet by [...] / oxyCODONE hydrochloride 5 mg oral tablet (17 sources) Opioid Agonist Start: 09-18-2021 End: 10-02-2021 [...] tablet Discontinued 1 TAB PO Twice daily 03 07May 16, 2019 12:00am September 11, 2020 7:25am Start: 10-09-2017 End: 10-28-2018 take 1 tablet by mouth twice daily Amoxicillin-Pot Clavulanate (Augmentin) 875-125 mg tablet Discontinued 1 TAB PO Twice daily 03 07October 09, 2017 1:00am October 28, 2018 12:18pm amylase 497113 unt / lipase 10630 unt / protease [id number] unt delayed release oral capsule (17 sources) Start: 09-12-2017 End: 10-28-2018 take 57081-13736 capsules by mouth three times daily Uhhfgo-Nqepwgqc-Papvabr (Creon) 24,000-76,000 -120,000 unit capsule,delayed release(DR/EC) Discontinued 1 TAB PO Three times daily September 12, 2017 1:00am October 28, 2018 12:18pm azithromycin 500 mg oral tablet (17 sources) Macrolide Antimicrobial Start: 10-11-2017 End: 10-16-2017 take 500 mg by mouth once daily Azithromycin Discontinued 500 MG PO Daily 01 16October 11, 2017 1:00am October 16, 2017 1:04am canagliflozin 100 mg oral tablet (17 sources) Sodium-Glucose Cotransporter 2 Inhibitor Start: 09-12-2017 End: 12-18-2018 take 100 mg by mouth once daily Canagliflozin Discontinued 100 MG PO Daily September 12, 2017 1:00am December 18, 2018 1:46pm carisoprodol 350 mg oral tablet (17 sources) Muscle Relaxant Start: 09-12-2017 End: 10-28-2018 take 350 mg by mouth four times daily Carisoprodol Discontinued 350 MG PO Four times daily September 12, 2017 1:00am October 28, 2018 12:18pm cephalexin 500 mg oral tablet (17 sources) Cephalosporin Antibacterial Start: 09-18-2021 End: 10-10-2021 take 500 mg by mouth four times daily Cephalexin Discontinued 500 MG PO Four times daily 40 September 18, 2021 1:00am October 10, 2021 [...] mL hydrOXYzine pamoate 25 mg oral capsule (17 sources) Antihistamine Start: 09-12-2017 End: 09-11-2020 take [...] daily. lurasidone hydrochloride 120 mg oral tablet (17 sources) Atypical Antipsychotic Start: 09-12-2017 End: 10-28-2018 [...] pantoprazole 40 mg delayed release oral tablet (17 sources) Proton Pump Inhibitor Start: 09-12-2017 End: [...] abdominal pain, unspecified] 11-02-2018 Episodic Anxiety disorders (17 sources) Anxiety; Translations: [Anxiety disorder, unspecified] 09-12-2017 Chronic Appendicitis and other appendiceal conditions (17 sources) Acute appendicitis; Translations: [Unspecified acute appendicitis] 09-17-2021 Episodic Chronic obstructive pulmonary disease and bronchiectasis (17 sources) Acute exacerbation of chronic obstructive airways [...] unspecified, without bleeding] 10-02-2021 Episodic Gastrointestinal hemorrhage (17 sources) Rectal hemorrhage; Translations: [Hemorrhage of anus [...] Chronic Other bone disease and musculoskeletal deformities (16 sources) 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], [...] Translations: [Fibromyalgia] Episodic Other connective tissue disease (6 sources) Biceps tendinitis; Translations: [Bicipital tendinitis, unspecified shoulder] 01-26-2024 Episodic Other connective tissue disease (3 sources) Bicipital tendinitis, unspecified shoulder; Translations: [Bicipital tenosynovitis] 01-26-2024 Episodic Other disorders of stomach and duodenum (17 sources) Disorder of function of stomach; Translations: [...] Onset: 3 Chronic Other nervous system disorders (17 sources) Pain in limb; Translations: [Other acute postprocedural pain] 10-24-2021 Episodic Other non-traumatic joint disorders (19 sources) Pain of right wrist; Translations: [Pain in right wrist] Episodic Other non-traumatic joint disorders (15 sources) Pain in right shoulder; Translations: [Acute pain of right shoulder] Onset: 1 Resolved: 2 Episodic Other non-traumatic joint disorders (3 sources) Pain in left shoulder Onset: 2 Resolved: 2 Episodic Other non-traumatic joint disorders (10 sources) Pain in right wrist; Translations: [Pain in joint, forearm] Onset: 2 Resolved: 2 Episodic Other non-traumatic joint disorders (7 sources) Pain in wrist; Translations: [Pain in right wrist] 11-24-2023 Episodic Other nutritional; endocrine; and metabolic disorders (20 sources) Body mass index 30+ - obesity; Translations: [Body mass index (BMI) 33.0-33.9, adult] Chronic Residual codes; unclassified (6 sources) Other specified postprocedural states Onset: 2 Resolved: 2 Episodic Skin and subcutaneous tissue infections (17 sources) Cellulitis of forearm; Translations: [Cellulitis of unspecified part of limb] 10-11-2017 Episodic Sprains and strains (8 sources) Strain of muscle, fascia and tendon of other parts of biceps, right arm, initial encounter; Translations: [Strain of other muscles, fascia and tendons at shoulder and upper arm level, left arm, initial encounter] Onset: 1 Resolved: 2 Episodic Thyroid disorders (2 sources) Hypothyroidism, unspecified; Translations: [Nontoxic single thyroid nodule] Onset: 4 [...] Quervain's tenosynovitis, right M65.4] Onset: 06-05-2021 Resolved: 06-18-2021 Episodic Other connective tissue disease (1 source) Synovitis and tenosynovitis, unspecified; Translations: [Tenosynovitis M65.9] Onset: 06-05-2021 Resolved: 06-05-2021 Episodic Other connective tissue disease (1 source) Fibromyalgia; Translations: [Fibromyalgia] Onset: 01-08-2024 Episodic Other nervous system disorders (1 source) Paresthesia of skin; Translations: [Paresthesia of skin] Onset: 02-09-2024 Episodic Results Test Name Value Interpretation Reference Range Facility Thyrotropin [Units/volume] i n Serum or PlasmaOrdered By: Sammie Gonzalez on 06-22-2024 TSH Qn 2.24 m[IU]/L Normal 0.45-5.33 [facility] Comment on above: Order Comment: PIPER ROBLERO Result Comment: PERF ORMED BY: [facility] [address] [place] [address] PATHOLOGIST [employer] PLANNING OPERATOR MONIK SILVESTRE M.D. Performed By: #### T 4T, T3F, TSH3 ####[address] [place] [address] [facility] Thyroxine (T4) [Mass/volume] in Serum or PlasmaOrdered By: Sammie Gonzalez on 06-22-2024 T4 [Mass/Vol] 11.23 ug/dL Normal 5.39-11.82 [facility] Comment on above: Order Comment: PIPER ROBLERO Performed By: #### T 4T, T3F, TSH3 ####[id number] [place] [id number] [place] Triiodothyronine (T3) Freeon 06-22-2024 Triiodothyronine (T3) Free 2.96 pg/mL Normal 2.50-3.90 [facility] Comment on above: Order Comment: PIPER STEWARTW Result Comment: PERF ORMED BY: [facility] [address] [place] [address] PATHOLOGIST [employer]AG[employer] PLANNING OPERATOR MONIK SILVESTRE M.D. Performed By: #### T 4T, T3F, TSH3 ####[facility] [address] [place] [address] [facility] Triiodothyronine (T3) Free [ Mass/volume] in Serum or PlasmaOrdered By: Sammie Gonzalez on 06-22-2024 Free T3 [Mass/Vol] 2.96 pg/mL 2.50-3.90 [facility] CNOVon 05-30-2024 CNOV Office Visit (RHEUAV ) KOURTNEY NOVAK ([id number]) 1975 F Date Time Provider Department 05/30/24 9:40 AM ZEINAB WOOD During your visit today, we recorded the following information about you: Pulse Respiration Blood pressure Weight 87/minute 18/minute 109/72 109 kg Zeinab Wood MD 05/30/2024 10:17 AM Signed Kourtney Novak is a 47 year old [...] and lyrica- SE Cymbalta- started on 10/06 Mobsadia - did not help GENERAL: No weight [...] are p (more content not included)... Normal [facility] A1C with Estimated Average G tanesha 05-12-2024 Glucose [Mass/Vol] 114 mg/dL Normal [facility] Comment on above: Order Comment: FASTI NG. ANNIKA Result Comment: PERF ORMED BY: [facility] [address] [place] [address] PATHOLOGIST [employer]AG[employer] PLANNING OPERATOR MONIK SILVESTRE M.D. Performed By: #### V [id number], TSH3, A1C WTH eA, DIFF CBC, [id number], LIPID, FE, CMP, T3F, T4T #### [facility] [address] [place] [address] [place] #### INSULIN #### [facility] , Alanine aminotransferase [En zymatic activity/volume] in Serum or PlasmaOrdered By: Sammie Gonzalez on 05-12-2024 ALT [Catalytic activity/Vol] 17 U/L Normal 7-52 [facility] Comment on above: Order Comment: FASTI NG. JKW Performed By: #### V [id number], TSH3, A1C WTH eA, DIFF CBC, [id number], LIPID, FE, CMP, T3F, T4T #### [facility] [address] [place] [address] [place] #### INSULIN #### [facility] , Albumin [Mass/volume] in Ser um or Plasma by Bromocresol green (BCG) dye binding methoOrdered By: Sammie Gonzalez on 05-12-2024 Albumin BCG dye [Mass/Vol] 4.1 g/dL 3.5-5.7 [facility] Alkaline phosphatase [Enzyma tic activity/volume] in Serum or PlasmaOrdered By: Sammie Gonzalez on 05-12-2024 ALP [Catalytic activity/Vol] 42 U/L Normal 34-104 [facility] Comment on above: Order Comment: FASTI NG. JKW Performed By: #### V [id number], TSH3, A1C WTH eA, DIFF CBC, [id number], LIPID, FE, CMP, T3F, T4T #### [facility] [address] [place] [address] [place] #### INSULIN #### [facility] , Anisocytosis [Presence] in B lood by Light microscopyOrdered By: Sammie Gonzalez on 05-12-2024 Anisocytosis Ql (Bld) Slight Normal [facility] Comment on above: Order Comment: FASTI NG. JKW Performed By: #### V [id number], TSH3, A1C WTH eA, DIFF CBC, [id number], LIPID, FE, CMP, T3F, T4T ####[facility] [id number]#### INSULIN ####[facility] , Aspartate aminotransferase [ Enzymatic activity/volume] in Serum or PlasmaOrdered By: Sammie Gonzalez on 05-12-2024 AST [Catalytic activity/Vol] 11 U/L Low 13-39 [facility] Comment on above: Order Comment: FASTI NG. JKW Performed By: #### V [id number], TSH3, A1C WTH eA, DIFF CBC, [id number], LIPID, FE, CMP, T3F, T4T #### [facility] [address] #### INSULIN #### [facility] , Basophils Auto (Bld) [#/Vol] Ordered By: Sammie Gonzalez on 05-12-2024 Basophils (Bld) [#/Vol] N/A F [facility] Basophils/100 WBC Auto (Bld) Ordered By: Sammie Gonzalez on 05-12-2024 Basophils/100 WBC (Bld) N/A F [facility] Basophils/100 leukocytes in Blood by Manual countOrdered By: Sammie Gonzalez on 05-12-2024 Basophils/100 WBC (Bld) 1 % Normal 0-2 F [facility] Comment on above: Order Comment: FASTI NG. JKW Performed By: #### V [id number], TSH3, A1C WTH eA, DIFF CBC, [id number], LIPID, FE, CMP, T3F, T4T ####[facility] [id number]#### INSULIN ####[facility] , Bilirubin.total [Mass/volume ] in Serum or PlasmaOrdered By: Sammie Gonzalez on 05-12-2024 Bilirubin [Mass/Vol] 0.4 mg/dL Normal 0.3-1.[address] [facility] Comment on above: Order Comment: FASTI NG. JKW Performed By: #### V [id number], TSH3, A1C WTH eA, DIFF CBC, [id number], LIPID, FE, CMP, T3F, T4T #### [facility] [address] [place] [address] #### INSULIN #### [facility] , Calcium [Mass/volume] in Ser um or PlasmaOrdered By: Sammie Gonzalez on 05-12-2024 Calcium [Mass/Vol] 9.4 mg/dL Normal 8.6-10.3 [facility] Comment on above: Order Comment: FASTI NG. JKW Performed By: #### V [id number], TSH3, A1C WTH eA, DIFF CBC, [id number], LIPID, FE, CMP, T3F, T4T #### [facility] [address] [place] [address] #### INSULIN #### [facility] , Carbon dioxide, total [Moles /volume] in Serum or PlasmaOrdered By: Sammie Gonzalez on 05-12-2024 CO2 [Moles/Vol] 27.0 mmol/L Normal 21.0-31.0 [facility] Comment on above: Order Comment: FASTI NG. JKW Performed By: #### V [id number], TSH3, A1C WTH eA, DIFF CBC, [id number], LIPID, FE, CMP, T3F, T4T #### [address] #### INSULIN #### [facility] , Chloride [Moles/volume] in S micki or PlasmaOrdered By: Sammie Gonzalez on 05-12-2024 Chloride [Moles/Vol] 101 mmol/L Normal 98-[address] [facility] Comment on above: Order Comment: FASTI NG. JKW Performed By: #### V [id number], TSH3, A1C WTH eA, DIFF CBC, [id number], LIPID, FE, CMP, T3F, T4T #### [facility] [address] [place] [address] [place] #### INSULIN #### [facility] , Cholesterol [Mass/volume] in Serum or PlasmaOrdered By: Sammie Gonzalez on 05-12-2024 Cholesterol [Mass/Vol] 191 mg/dL Normal 140-200 [facility] Comment on above: Chol less than 200 m g/dl low riskChol 201-239 mg/dl borderline riskChol 240 mg/dl and greater high risk Order Comment: FASTI NG. JKW Result Comment: Chol less than 200 mg/dl low risk Chol 201-239 mg/dl borderline risk Chol 240 mg/dl and greater high risk Performed By: #### V [id number], TSH3, A1C WTH eA, DIFF CBC, [id number], LIPID, FE, CMP, T3F, T4T ####[facility] [id number]#### INSULIN ####[facility] , Cholesterol in LDL Calc [Mas s/Vol]Ordered By: Sammie Gonzalez on 05-12-2024 Cholesterol in LDL [Mass/Vol] 76 mg/dL 0-100 [facility] Comment on above: LDL ATP III CLASSIFI CATIONLDL less than 100 mg/dL OptimalLDL 100-129 mg/dL Near or above optimalLDL 130-159 mg/dL Borderline highLDL 160-189 mg/dL HighLDL greater than 189 mg/dL Very high Cholesterol in VLDL Calc [Ma ss/Vol]Ordered By: Sammie Gonzalez on 05-12-2024 Cholesterol in VLDL [Mass/Vol] 29 mg/dL [facility] Comprehensive Metabolic Pane costa 05-12-2024 Albumin [Mass/Vol] 4.1 g/dL Normal 3.5-5.7 [facility] Comment on above: Order Comment: FASTI NG. JKW Performed By: #### V [id number], TSH3, A1C WTH eA, DIFF CBC, [id number], LIPID, FE, CMP, T3F, T4T #### [facility] [address] [place] [address] [place] #### INSULIN #### [facility] , GFR/1.73 sq M.predicted MDRD (S/P/Bld) [Vol rate/Area] mL/min/{1.73_m2} Normal [facility] Comment on above: Order Comment: FASTI NG. JKW Performed By: #### V [id number], TSH3, A1C WTH eA, DIFF CBC, [id number], LIPID, FE, CMP, T3F, T4T #### [address] #### INSULIN #### [facility] , Creatinine [Mass/volume] in Serum or PlasmaOrdered By: Sammie Gonzalez on 05-12-2024 Creatinine [Mass/Vol] 1.05 mg/dL Normal 0.60-1.20 [facility] Comment on above: Order Comment: FASTI NG. JKW Performed By: #### V [id number], TSH3, A1C WTH eA, DIFF CBC, [id number], LIPID, FE, CMP, T3F, T4T #### [address] #### INSULIN #### [facility] , Diff and CBCon 05-12-2024 Mean Corpuscular HGB Conc 33.0 g/dL Normal 32.0-35.0 [facility] Comment on above: Order Comment: FASTI NG. JKW Performed By: #### V [id number], TSH3, A1C WTH eA, DIFF CBC, [id number], LIPID, FE, CMP, T3F, T4T ####[address]#### INSULIN ####[facility] , Metamyelocytes 2 % High 0-0 [facility] Comment on above: Order Comment: FASTI NG. JKW Performed By: #### V [id number], TSH3, A1C WTH eA, DIFF CBC, [id number], LIPID, FE, CMP, T3F, T4T ####[address]#### INSULIN ####[facility] , Microcytosis Slight Normal [facility] Comment on above: Order Comment: FASTI NG. JKW Performed By: #### V [id number], TSH3, A1C WTH eA, DIFF CBC, [id number], LIPID, FE, CMP, T3F, T4T ####[address]#### INSULIN ####[facility] , Platelet Estimate Normal Normal Normal [facility] Comment on above: Order Comment: FASTI NG. JKW Performed By: #### V [id number], TSH3, A1C WTH eA, DIFF CBC, [id number], LIPID, FE, CMP, T3F, T4T ####[address]#### INSULIN ####[facility] , Platelet Morphology Normal Normal Normal [facility] Comment on above: Order Comment: FASTI NG. JKW Result Comment: PERF ORMED BY: [facility] [address] [place] [address] PATHOLOGIST [employer] ENGAG[employer] PLANNING OPERATOR MONIK SILVESTRE M.D. Performed By: #### V [id number], TSH3, A1C WTH eA, DIFF CBC, [id number], LIPID, FE, CMP, T3F, T4T ####[address]#### INSULIN ####[facility] , Eosinophils Auto (Bld) [#/Vo l]Ordered By: Sammie Gonzalez on 05-12-2024 Eosinophils (Bld) [#/Vol] N/A [facility] Eosinophils/100 WBC Auto (Bl d)Ordered By: Sammie Gonzalez on 05-12-2024 Eosinophils/100 WBC (Bld) N/A [facility] Eosinophils/100 leukocytes i n Blood by Manual countOrdered By: Sammie Gonzalez on 05-12-2024 Eosinophils/100 WBC (Bld) 2 % Normal 1-3 [facility] Comment on above: Order Comment: FASTI NG. JKW Performed By: #### V [id number], TSH3, A1C WTH eA, DIFF CBC, [id number], LIPID, FE, CMP, T3F, T4T ####[place] [id number] [address]#### INSULIN ####[facility] , Erythrocyte distribution wid th [Ratio] by Automated countOrdered By: Sammie Gonzalez on 05-12-2024 Erythrocyte distribution width (RBC) [Ratio] 13.9 % Normal 11.9-15.3 [facility] Comment on above: Order Comment: FASTI NG. JKW Performed By: #### V [id number], TSH3, A1C WTH eA, DIFF CBC, [id number], LIPID, FE, CMP, T3F, T4T ####[address]#### INSULIN ####[facility] , Erythrocytes [#/volume] in B lood by Automated countOrdered By: Sammie Gonzalez on 05-12-2024 RBC (Bld) [#/Vol] 4.30 10*6/uL Normal 3.60-5.00 [facility] Comment on above: Order Comment: FASTI NG. JKW Performed By: #### V [id number], TSH3, A1C WTH eA, DIFF CBC, [id number], LIPID, FE, CMP, T3F, T4T ####[place] [id number] [address]#### INSULIN ####[facility] , Folate [Mass/volume] in Seru m or PlasmaOrdered By: Sammie Gonzalez on 05-12-2024 Folate [Mass/Vol] 7.8 ng/mL >5.9 [facility] Comment on above: Folate reference ran ge: >5.9 ng/mlThe WHO technical consultation on folate and vitamin [id number] has determined that folate concentrations lessthan 4 ng/ml are considered deficient. Glucose [Mass/volume] in Ser um or PlasmaOrdered By: Sammie Gonzalez on 05-12-2024 Glucose [Mass/Vol] 111 mg/dL High 70-100 [facility] Comment on above: ADA recommended refe rence rangeRandom Glucose Reference Range is dependent on time and content of last meal. Glucose of more than 200 mg/dL in a nonstressed, ambulatory subject supports the diagnosis of Diabetes Mellitus. Order Comment: PIPER STEWARTW Result Comment: [place] om Glucose Reference Range is dependent on time and content of last meal. Glucose of more than 200 mg/dL in a nonstressed, ambulatory subject supports the diagnosis of Diabetes Mellitus. ADA recommended reference range Performed By: #### V [id number], TSH3, A1C WTH eA, DIFF CBC, [id number], LIPID, FE, CMP, T3F, T4T #### [facility] [address] #### INSULIN #### [facility] , Glucose mean value [Mass/vol ume] in Blood Estimated from glycated hemoglobinOrdered By: Sammie Gonzalez on 05-12-2024 Average glucose Estimated from glycated hemoglobin (Bld) [Mass/Vol] 114 mg/dL [facility] Hematocrit [Volume Fraction] of Blood by Automated countOrdered By: Sammie Gonzalez on 05-12-2024 Hematocrit (Bld) [Volume fraction] 39.1 % Normal 34.0-46.4 [facility] Comment on above: Order Comment: PIPER STEWARTW Performed By: #### V [id number], TSH3, A1C WTH eA, DIFF CBC, [id number], LIPID, FE, CMP, T3F, T4T ####[facility] [id number] [place] [address] [place]#### INSULIN ####[facility] , Hemoglobin A1c percentageOrd ered By: Sammie Gonzalez on 05-12-2024 HbA1c (Bld) [Mass fraction] 5.6 % Normal 4.3-5.6 [facility] Comment on above: Increased risk for d iabetes: 5.7 - 6.4diabetes: >6.4glycemic control for adults with diabetes: <7.0 Order Comment: FASTI NG. JKW Result Comment: Incr eased risk for diabetes: 5.7 - 6.4 diabetes: >6.4 glycemic control for adults with diabetes: <7.0 Performed By: #### V [id number], TSH3, A1C WTH eA, DIFF CBC, [id number], LIPID, FE, CMP, T3F, T4T #### [facility] [address] #### INSULIN #### [facility] , Hemoglobin [Mass/volume] in BloodOrdered By: Sammie Gonzalez on 05-12-2024 Hemoglobin (Bld) [Mass/Vol] 12.9 g/dL Normal 11.8-15.4 [facility] Comment on above: Order Comment: FASTI NG. JKW Performed By: #### V [id number], TSH3, A1C WTH eA, DIFF CBC, [id number], LIPID, FE, CMP, T3F, T4T ####[address]#### INSULIN ####[facility] , Insulinon 05-12-2024 Insulin 38.1 u[iU]/mL High 2.6-24.9 [facility] Comment on above: Order Comment: FASTI NG. JKW Result Comment: Perf ormed at: - [facility] [address] [id number] Video Production Specialist: Maxim Daniel PhD, Phone: [phone] PERFORMED BY: [place] [address] PATHOLOGIST [employer] ENGAG[employer] PLANNING OPERATOR MONIK SILVESTRE M.D. Performed By: #### V [id number], TSH3, A1C WTH eA, DIFF CBC, [id number], LIPID, FE, CMP, T3F, T4T ####[address]#### INSULIN ####[facility] , Iron [Mass/volume] in Serum or PlasmaOrdered By: Sammie Gonzalez on 05-12-2024 Iron [Mass/Vol] 80 ug/dL Normal 50-212 [facility] Comment on above: Order Comment: FASTI NG. JKW Performed By: #### V [id number], TSH3, A1C WTH eA, DIFF CBC, [id number], LIPID, FE, CMP, T3F, T4T ####[facility] [id number]#### INSULIN ####[facility] , Leukocytes [#/volume] correc jana for nucleated erythrocytes in Blood by Automated counOrdered By: Sammie Gonzalez on 05-12-2024 WBC corrected for nucl RBC Auto (Bld) [#/Vol] 11.8 10*3/uL High 3.8-11.6 [facility] Leukocytes [#/volume] in Blo od by Automated countOrdered By: Sammie Gonzalez on 05-12-2024 WBC (Bld) [#/Vol] 11.8 10*3/uL High 3.8-11.6 [facility] Comment on above: Order Comment: FASTI NG. JKW Performed By: #### V [id number], TSH3, A1C WTH eA, DIFF CBC, [id number], LIPID, FE, CMP, T3F, T4T ####[facility] [id number]#### INSULIN ####[facility] , Lipid Panelon 05-12-2024 LDL Cholesterol,Calculated 76 mg/dL Normal 0-100 [facility] Comment on above: Order Comment: FASTI NG. JKW Result Comment: LDL ATP III CLASSIFICATION LDL less than 100 mg/dL Optimal LDL 100-129 mg/dL Near or above optimal LDL 130-159 mg/dL Borderline high LDL 160-189 mg/dL High LDL greater than 189 mg/dL Very high Performed By: #### V [id number], TSH3, A1C WTH eA, DIFF CBC, [id number], LIPID, FE, CMP, T3F, T4T ####[address]#### INSULIN ####[facility] , Triglyceride w/Reflex 146 mg/dL Normal 0-149 [facility] Comment on above: Order Comment: FASTI NG. JKW Result Comment: TRIG ATP III CLASSIFICATION TRIG less than 150 mg/dL Normal TRIG 150-199 mg/dL Borderline high TRIG 200-500 mg/dL High TRIG greater than 500 mg/dL Very high Standard traceable to the Center for Disease Conrtrol and Prevention (CDC) test method. Performed By: #### V [id number], TSH3, A1C WTH eA, DIFF CBC, [id number], LIPID, FE, CMP, T3F, T4T ####[address]#### INSULIN ####[facility] , VLDL CHOLESTEROL 29 mg/dL Normal [facility] Comment on above: Order Comment: FASTI NG. JKW Performed By: #### V [id number], TSH3, A1C WTH eA, DIFF CBC, [id number], LIPID, FE, CMP, T3F, T4T ####[address]#### INSULIN ####[facility] , Lymphocytes Auto (Bld) [#/Vo l]Ordered By: Sammie Gonzalez on 05-12-2024 Lymphocytes (Bld) [#/Vol] N/A [facility] Lymphocytes/100 WBC Auto (Bl d)Ordered By: Sammie Gonzalez on 05-12-2024 Lymphocytes/100 WBC (Bld) N/A [facility] Lymphocytes/100 leukocytes i n Blood by Manual countOrdered By: Sammie Gonzalez on 05-12-2024 Lymphocytes/100 WBC (Bld) 28 % Normal 18-42 [facility] Comment on above: Order Comment: FASTI NG. JKW Performed By: #### V [id number], TSH3, A1C WTH eA, DIFF CBC, [id number], LIPID, FE, CMP, T3F, T4T ####[address]#### INSULIN ####[facility] , MCH [Entitic mass] by Automa jana countOrdered By: Sammie Gonzalez on 05-12-2024 MCH (RBC) [Entitic mass] 29.9 pg Normal 24.7-34.3 [facility] Comment on above: Order Comment: FASTI NG. JKW Performed By: #### V [id number], TSH3, A1C WTH eA, DIFF CBC, [id number], LIPID, FE, CMP, T3F, T4T ####[address]#### INSULIN ####[facility] , MCHC Auto (RBC) [Mass/Vol]Or dered By: Sammie Gonzalez on 05-12-2024 MCHC (RBC) [Mass/Vol] 33.0 g/dL 32.0-35.0 [facility] MCV [Entitic volume] by Auto mated countOrdered By: Sammie Gonzalez on 05-12-2024 MCV (RBC) [Entitic vol] 90.8 fL Normal 80-100 [facility] Comment on above: Order Comment: FASTI NG. JKW Performed By: #### V [id number], TSH3, A1C WTH eA, DIFF CBC, [id number], LIPID, FE, CMP, T3F, T4T ####[address]#### INSULIN ####[facility] , Manual blood segmented neutr ophils/100 leukocytesOrdered By: Sammie Gonzalez on 05-12-2024 Segmented neutrophils/100 WBC (Bld) 54 % Normal 50-70 [facility] Comment on above: Order Comment: FASTI NG. JKW Performed By: #### V [id number], TSH3, A1C WTH eA, DIFF CBC, [id number], LIPID, FE, CMP, T3F, T4T ####[address] [place] [address] [facility]#### INSULIN ####[facility] , Metamyelocytes/100 WBC Manua l cnt (Bld)Ordered By: Sammie Gonzalez on 05-12-2024 Metamyelocytes/100 WBC (Bld) 2 % High 0-0 [facility] Microcytes LM Ql (Bld)Ordere d By: Sammie Gonzalez on 05-12-2024 Microcytes Ql (Bld) Slight [facility] Monocytes Auto (Bld) [#/Vol] Ordered By: Sammie Gonzalez on 05-12-2024 Monocytes (Bld) [#/Vol] N/A [facility] Monocytes/100 WBC Auto (Bld) Ordered By: Sammie Gonzalez on 05-12-2024 Monocytes/100 WBC (Bld) N/A [facility] Monocytes/100 leukocytes in Blood by Manual countOrdered By: Sammie Gonzalez on 05-12-2024 Monocytes/100 WBC (Bld) 12 % High 2-11 [facility] Comment on above: Order Comment: FASTI DANIELLE. JKW Performed By: #### V [id number], TSH3, A1C WTH eA, DIFF CBC, [id number], LIPID, FE, CMP, T3F, T4T ####[place] [id number] [facility]#### INSULIN ####[facility] , Neutrophils Auto (Bld) [#/Vo l]Ordered By: Sammie Gonzalez on 05-12-2024 Neutrophils (Bld) [#/Vol] N/A [facility] Neutrophils/100 WBC Auto (Bl d)Ordered By: Sammie Gonzalez on 05-12-2024 Neutrophils/100 WBC (Bld) N/A [facility] No Panel InformationOrdered By: Sammie Gonzalez on 05-12-2024 Estimated GFR (CKD-EPI) > 60.0 mL/Min [facility] Creatinine Clearance (Chem N/A [facility] Nucleated erythrocytes [Pres ence] in Blood by Automated countOrdered By: Sammie Gonzalez on 05-12-2024 Nucleated RBC Auto Ql (Bld) N/A [facility] Peripheral white blood cell differential % bands, microscopic examOrdered By: Sammie Gonzalez on 05-12-2024 Band form neutrophils/100 WBC (Bld) 1 % Normal 0-5 [facility] Comment on above: Order Comment: FASTI NG. JKW Performed By: #### V [id number], TSH3, A1C WTH eA, DIFF CBC, [id number], LIPID, FE, CMP, T3F, T4T ####[facility]#### INSULIN ####[facility] , Platelet adequacy [Presence] in Blood by Light microscopyOrdered By: Sammie Gonzalez on 05-12-2024 Platelets LM Ql (Bld) Normal Normal [facility] Platelet mean volume [Entiti c volume] in Blood by Automated countOrdered By: Sammie Gonzalez on 05-12-2024 Platelet mean volume (Bld) [Entitic vol] 8.1 fL Normal 6.3-10.7 [facility] Comment on above: Order Comment: FASTI NG. JKW Performed By: #### V [id number], TSH3, A1C WTH eA, DIFF CBC, [id number], LIPID, FE, CMP, T3F, T4T ####[place] [id number] [address]#### INSULIN ####[facility] , Platelet morphology finding [Identifier] in BloodOrdered By: Sammie Gonzalez on 05-12-2024 Platelet morphology finding Nom (Bld) Normal Normal [facility] Platelets [#/volume] in Bloo d by Automated countOrdered By: Sammie Gonzalez on 05-12-2024 Platelets (Bld) [#/Vol] 392 10*3/uL Normal 150-450 [facility] Comment on above: Order Comment: FASTI NG. JKW Performed By: #### V [id number], TSH3, A1C WTH eA, DIFF CBC, [id number], LIPID, FE, CMP, T3F, T4T ####[facility] [id number]#### INSULIN ####[facility] , Potassium [Moles/volume] in Serum or PlasmaOrdered By: Sammie Goznalez on 05-12-2024 Potassium [Moles/Vol] 4.1 mmol/L Normal 3.5-5.1 [facility] Comment on above: Order Comment: FASTI NG. JKW Performed By: #### V [id number], TSH3, A1C WTH eA, DIFF CBC, [id number], LIPID, FE, CMP, T3F, T4T #### [facility] [address] [place] [address] #### INSULIN #### [facility] , Protein [Mass/volume] in Ser um or PlasmaOrdered By: Sammie Gonzalez on 05-12-2024 Protein [Mass/Vol] 6.1 g/dL Low 6.4-8.9 [facility] Comment on above: Order Comment: FASTI NG. JKW Performed By: #### V [id number], TSH3, A1C WTH eA, DIFF CBC, [id number], LIPID, FE, CMP, T3F, T4T #### [facility] [address] [place] [address] #### INSULIN #### [facility] , RBC morphologyOrdered By: Do erik Gonzalez on 05-12-2024 RBC morphology finding Nom (Bld) N/A [facility] Serum globulin measurement b y calculation (mass/volume)Ordered By: Sammie Gonzalez on 05-12-2024 Globulin (S) [Mass/Vol] 2.0 g/dL Normal [facility] Comment on above: Order Comment: FASTI NG. JKW Performed By: #### V [id number], TSH3, A1C WTH eA, DIFF CBC, [id number], LIPID, FE, CMP, T3F, T4T #### [facility] [address] [place] [address] [place] #### INSULIN #### [facility] , Serum or plasma albumin/glob ulin mass ratioOrdered By: Sammie Gonzalez on 05-12-2024 Albumin/Globulin [Mass ratio] 2.1 {ratio} Normal [facility] Comment on above: Order Comment: FASTI NG. JKW Performed By: #### V [id number], TSH3, A1C WTH eA, DIFF CBC, [id number], LIPID, FE, CMP, T3F, T4T #### [facility] [address] #### INSULIN #### [facility] , Serum or plasma anion gap de terminationOrdered By: Sammie Gonzalez on 05-12-2024 Anion gap [Moles/Vol] 12.1 mmol/L Normal 6.0-15.0 [facility] Comment on above: Order Comment: FASTI NG. JKW Performed By: #### V [id number], TSH3, A1C WTH eA, DIFF CBC, [id number], LIPID, FE, CMP, T3F, T4T #### [facility] [address] #### INSULIN #### [facility] , Serum or plasma high density lipoprotein (HDL) cholesterol measurementOrdered By: Sammie Gonzalez on 05-12-2024 Cholesterol in HDL [Mass/Vol] 86 mg/dL Normal 23-92 [facility] Comment on above: HDL CHOL ATP-III CLA SSIFICATION Cardiovascular RiskHDL > or equal to 60 mg/dL LOWHDL < 40 mg/dL HIGH Order Comment: FASTI NG. JKW Result Comment: HDL CHOL ATP-III CLASSIFICATION Cardiovascular Risk HDL > or equal to 60 mg/dL LOW HDL < 40 mg/dL HIGH Performed By: #### V [id number], TSH3, A1C WTH eA, DIFF CBC, [id number], LIPID, FE, CMP, T3F, T4T ####[facility] [address] [place] [address] [place]#### INSULIN ####[facility] , Serum or plasma insulin kiara urement (units/volume)Ordered By: Sammie Gonzalez on 05-12-2024 Insulin Qn 38.1 u[iU]/mL High 2.6-24.9 [facility] Comment on above: Performed at: [address] [id number] Director: Maxim Daniel PhD, Phone: [phone] Serum or plasma total choles terol/high density lipoprotein (HDL) cholesterol mass ratOrdered By: Sammie Gonzalez on 05-12-2024 Cholesterol.total/Tali sterol in HDL [Mass ratio] 2.2 {ratio} Normal <5.0 [facility] Comment on above: Order Comment: FASTI NG. JKW Performed By: #### V [id number], TSH3, A1C WTH eA, DIFF CBC, [id number], LIPID, FE, CMP, T3F, T4T ####[facility] [id number]#### INSULIN ####[facility] , Sodium [Moles/volume] in Ser um or PlasmaOrdered By: Sammie Gonzalez on 05-12-2024 Sodium [Moles/Vol] 136 mmol/L Normal 136-145 [facility] Comment on above: Order Comment: FASTI NG. JKW Performed By: #### V [id number], TSH3, A1C WTH eA, DIFF CBC, [id number], LIPID, FE, CMP, T3F, T4T #### [facility] [address] #### INSULIN #### [facility] , Thyrotropin [Units/volume] i n Serum or PlasmaOrdered By: Sammie Gonzalez on 05-12-2024 TSH Qn 6.32 m[IU]/L High 0.45-5.33 [facility] Comment on above: Order Comment: FASTI NG. JKW Performed By: #### V [id number], TSH3, A1C WTH eA, DIFF CBC, [id number], LIPID, FE, CMP, T3F, T4T ####[facility]#### INSULIN ####[facility] , Thyroxine (T4) [Mass/volume] in Serum or PlasmaOrdered By: Sammie Gonzalez on 05-12-2024 T4 [Mass/Vol] 11.59 ug/dL Normal 5.39-11.82 [facility] Comment on above: Order Comment: PIPER STEWARTW Performed By: #### V [id number], TSH3, A1C WTH eA, DIFF CBC, [id number], LIPID, FE, CMP, T3F, T4T ####[facility]#### INSULIN ####[facility] , Triglyceride [Mass/volume] i n Serum or PlasmaOrdered By: Sammie Gonzalez on 05-12-2024 Triglyceride [Mass/Vol] 146 mg/dL 0-149 [facility] Comment on above: TRIG ATP III CLASSIF ICATIONTRIG less than 150 mg/dL NormalTRIG 150-199 mg/dL Borderline highTRIG 200-500 mg/dL High TRIG greater than 500 mg/dL Very highStandard traceable to the Center for Disease Conrtrol and Prevention (CDC) test method. Triiodothyronine (T3) Freeon 05-12-2024 Triiodothyronine (T3) Free 3.61 pg/mL Normal 2.50-3.90 [facility] Comment on above: Order Comment: PIPER STEWARTW Result Comment: PERF ORMED BY: [place] [address] PATHOLOGIST [employer] ENGAGEMENT PLANNING OPERATOR MONIK SILVESTRE M.D. Performed By: #### V [id number], TSH3, A1C WTH eA, DIFF CBC, [id number], LIPID, FE, CMP, T3F, T4T #### [address] #### INSULIN #### [facility] , Triiodothyronine (T3) Free [ Mass/volume] in Serum or PlasmaOrdered By: Sammie Gonzalez on 05-12-2024 Free T3 [Mass/Vol] 3.61 pg/mL 2.50-3.90 [facility] Urea nitrogen [Mass/volume] in Serum or PlasmaOrdered By: Sammie Gonzalez on 05-12-2024 Urea nitrogen [Mass/Vol] 20 mg/dL Normal 7-25 [facility] Comment on above: Order Comment: FASTI NG. JKW Performed By: #### V [id number], TSH3, A1C WTH eA, DIFF CBC, [id number], LIPID, FE, CMP, T3F, T4T #### [facility] [address] #### INSULIN #### [facility] , Vit. B12/Folate Profileon Folate 7.8 ng/mL Normal >5.9 [facility] Comment on above: Order Comment: FASTI NG. JKW Result Comment: Jonna te reference range: >5.9 ng/ml The WHO technical consultation on folate and vitamin b12 deficiencies has determined that folate concentrations less than 4 ng/ml are considered deficient. Performed By: #### V [id number], TSH3, A1C WTH eA, DIFF CBC, [id number], LIPID, FE, CMP, T3F, T4T ####[facility]#### INSULIN ####[facility] , Vitamin B12 ser/plasOrdered By: Sammie Gonzalez on 05-12-2024 Cobalamin (Vitamin B12) [Mass/Vol] 306 pg/mL Normal 180-914 [facility] Comment on above: Order Comment: FASTI NG. JKW Performed By: #### V [id number], TSH3, A1C WTH eA, DIFF CBC, [id number], LIPID, FE, CMP, T3F, T4T ####[place] [address] [address]#### INSULIN ####[facility] , Vitamin D 25 Hydroxy Totalon 05-12-2024 Vitamin D 25 Hydroxy Total 39.9 ng/mL Normal 30-100 [facility] Comment on above: Order Comment: PIPER ROBLERO Result Comment: THERESE MIN D STATUS 25(OH)VITAMIN D RANGE (ng/mL) Deficient <20 Insufficient 20 to <30 Sufficient 30 to 100 Reference: Anum Berry, Brynn APARICIO et al. Evaluation,treatment, and prevention of vitamin D deficiency; an Endocrine Society clinical practice guideline. JCEM. 2010; 96(7):1911-30. PERFORMED BY: [facility] [address] [place] [address] PATHOLOGIST [employer] ENGAGEMENT PLANNING OPERATOR MONIK SILVESTRE M.D. Performed By: #### V [id number], TSH3, A1C WTH eA, DIFF CBC, [id number], LIPID, FE, CMP, T3F, T4T ####[facility] U[address]#### INSULIN ####[facility] , Vitamin D+Metabolites [Mass/ volume] in Serum or PlasmaOrdered By: Sammie Gonzalez on 05-12-2024 Vitamin D+Metabolites [Mass/Vol] 39.9 ng/mL 30-100 [facility] Comment on above: VITAMIN D STATUS 25( [place])VITAMIN D RANGE (ng/mL) Deficient <20 Insufficient 20 to <30Sufficient 30 to 100Reference: Anum Berry, Brynn APARICIO et al. Evaluation,treatment, and prevention of vitamin D deficiency; an Endocrine Society clinical practice guideline. JCEM. 2010; 96(7):1911-30. Kathy 03-08-2024 CNPN Telephone (NSCAMN) KOURTNEY NOVAK ([id number]) 1975 F Date Time Provider Department 03/08/24 ERIK PINEDA NSCAMN During your visit today, we recorded the following information about you: Brain Ruth 03/08/2024 1:49 PM Signed General Call Caller : Moira Ortiz nurse at [facility] Contact Reason for Call : Nurse would [...] Erik Pineda (04/04/24). Mario Alberto Phillips RN, Compliance Attorney Mario Alberto Phillips RN 03/08/2024 2:42 PM Addendum ADDENDUM: March 08, 2024 2:39 PM [facility] Visit on 02/02/2024 including the details for the patient's surgery was faxed to Moira DONOVAN ( [facility]) . Mario Alberto Phillips RN, Compliance Attorney Allergies As of Date: 03/08/2024 (No Known Allergies) Date Reviewed: 02/05/2024 Reviewed by: Rachele Fenton APRN.HOSPITAL RECEIVING CLERK - Fully Assessed Reason for Visit: epidural [...] Status:Closed by MARIO ALBERTO PHILLIPS on 03/08/24 [facility] thyroidon 02-15-2024 thyroid [facility] [address] Ultrasound Report Signed Patient: Kourtney Novak MR#: [id number] : 1975 Acct:[id number] Age/Sex: 48 / F ADM Date: 02/15/24 Loc: Room: Type: [facility] Attending Dr: Sammie Gonzalez MD Ordering Provider: Sammie Gonzalez MD Date of Service: 02/15/24 US/ thyroid: E04.1 Copies to: Sammie Gonzalez MD [...] George Gray M.D.02/15/2024 6:25 PM Dictation Location: [place] [address] Tech: Beti Hannah Transcribed By: GRACIE 02/15/241824 Dictated By: George Gray DO 02/15/241821 Signed By: 02/15/241824 Normal [facility] 02-10-2024 CNPN Telephone ([facility]) KOURTNEY NOVAK ([id number]) 1975 F Date Time Provider Department 02/10/24 RACHELE FENTON [facility]2 During your visit today, we recorded the following information about you: Gifty Dash 02/10/2024 3:20 PM Signed Prior Authorization for Medications Requested by ([employer], Pharmacy, Patient Call, Fax) : [employer] Pharmacy Name: [facility] Phone # : [phone] Name of Medication : Robaxin Dose : 500 mg Tablet If renewal, auth date expiration: NA Prescribing Provider: Eliceo Last OV: 02/05/2024 with Eliceo Insurance Provider : Medicare / [employer]. Is insurance card scanned in, including Rx info? Medicare card scanned - no RX information Insurance Phone : CoverMyMeds [place]: NA E-[place]? Yes Allergies As of Date: 02/10/2024 (No Known Allergies) Date Reviewed: 02/05/2024 Reviewed by: Rachele Fenton APRN.HOSPITAL RECEIVING CLERK - Fully Assessed Reason for Visit: Insurance Authorization [[id number]] Robaxin [place] - Medicare / [employer]. [Other] Prescriptions as of 03/14/2024 - nortriptyline [...] Encounter Status:Closed by TERRI GARCIA on 03/14/24 Normal [facility] MR cervical spine wo conon 0 02-09-2024 MR cervical spine wo con [facility] Main [place] [id number] MRI Report Signed Patient: Kourtney Novak MR#: [id number] : 1975 Acct:[id number] Age/Sex: 48 / F ADM Date: 02/09/24 Loc: [facility] Room: Type: REG CLI Attending Dr: Sammie Gonzalez MD Copies to: [...] Perry Milton M.D.02/09/2024 1:27 PM Dictation Location: [facility]-- Transcribed By: GRACIE 02/09/24 1327 Dictated By: Perry Milton II, MD 02/09/24 1320 Signed By: 02/09/24 1327 Normal [facility] MR lumbar spine wo conon MR lumbar spine wo con [facility] [place] [address] MRI Report Signed Patient: Kourtney Novak MR#: [id number] : 1975 Acct:[id number] Age/Sex: 48 / F ADM Date: 02/09/24 Loc: [facility] Room: Type: [facility] Attending Dr: Sammie Gonzalez MD Copies [...] Perry Milton M.D.02/09/2024 1:35 PM Dictation Location: [place] [address] Transcribed By: [facility] 02/09/24 1335 Dictated By: Perry Milton II, MD 02/09/24 1331 Signed By: 02/09/24 1335 Normal [facility] XR pre/post mri xrayon 02-08 XR pre/post mri xray [facility] Main [place] [address] [place] [address] XRay Report Signed Patient: Kourtney Novak MR#: [id number] : 1975 Acct:[id number] Age/Sex: 48 / F ADM Date: 02/09/24 Loc: [facility] Room: Type: [facility] Attending Dr: Sammie Gonzalez MD Copies [...] may be positional or secondary muscle spasm. Eeil-jl-dovnhvdg degenerative changes are noted at C5-C6 and C6-C7 as above. Lumbar spine: There is a dextro convex curvature. No fracture or subluxation. Impression dictated by: Perry Milton M.D.02/09/2024 1:47 PM Dictation Location: [place] [address] Transcribed By: [facility] 02/09/24 1347 Dictated By: Perry Milton II, MD 02/09/24 1343 Signed By: 02/09/24 1347 Normal [facility] Kathy 02-02-2024 [facility] Telephone ([facility]) KOURTNEY NOVAK ([id number]) 1975 F Date Time Provider Department 02/02/24 MARIO ALBERTO PHILLIPS [facility] During your visit today, we recorded the [...] Status:Closed by MARIO ALBERTO PHILLIPS on 02/02/[address] [facility] [address] BRAIN WO IVCONon 01-29-20 CT BRAIN WO IVCON * * *Final Report* * * DATE OF EXAM: Jan 29 2024 1:02PM [facility] 0504 - CT BRAIN WO IVCON / [...] soft tissue component identified in the orbit. Automatic Vulcanizing Operator: PSCB Transcribe Date/Time: Jan 31 2024 3:33P Dictated by : NATIVIDAD PRIEST MD This examination was interpreted and the report reviewed and electronically signed by: NATIVIDAD PRIEST MD on Jan 31 2024 3:37PM EST [id number] [facility] MRI SKULL BASE WO/W IVCONon 01-29-2024 MRI SKULL BASE WO/W IVCON * * *Final Report* * * DATE OF EXAM: Jan 29 2024 1:56PM [facility] 0319 - MRI SKULL BASE WO/W IVCON [...] tissue mass extending into the of the cloth bin packer or parapharyngeal spaces. The soft tissue planes of the, retropharyngeal, and prevertebral spaces are maintained. The visualized parotid glands are normal in appearance. Nasopharynx/Oropharyn x: The nasopharynx and oropharynx are normal in appearance. 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 Automatic Vulcanizing Operator: PSCB Transcribe Date/Time: Jan 31 2024 5:10P Dictated by : WESTLEY IYER MD This examination was interpreted and the report reviewed and electronically signed by: WESTLEY IYER MD on Jan 31 2024 5:28PM EST [id number] N [facility] KOURTNEY NOVAK ([id number]) 1975 F Date Time Provider Department 01/19/24 MARIO ALBERTO PHILLIPS [facility] During your visit today, we recorded the following information about you: Mario Alberto Phillips RN 01/19/2024 9:36 AM Signed Spoke with Ms Kourtney Novak today confirming surgery on 04/11/[address] Erik Pineda. Right middle sphenoid wing Preoperative appointments will be scheduled ~ 2 weeks prior to surgery date at a [facility] facility closer to the patient's home. Mario Alberto Phillips RN, Compliance Attorney Mario Alberto Phillips RN 01/19/2024 10:43 AM [...] by MARIO ALBERTO PHILLIPS on 01/19/24 Normal [facility] Alanine aminotransferase [En zymatic activity/volume] in Serum or PlasmaOrdered By: Zeinab Wood on 01-08-2024 ALT [Catalytic activity/Vol] 22 U/L Normal 7-52 [facility] Comment on above: Order Comment: FASTI DANIELLE. JKW Result Comment: PERF ORMED BY: [place] [address] PATHOLOGIST HARPOON ENGAGEMENT PLANNING OPERATOR MONIK SILVESTRE M.D. Performed By: #### C BC, AST, CREAT, ALT #### [address] Aspartate aminotransferase [ Enzymatic activity/volume] in Serum or PlasmaOrdered By: Zeinab Wood on 01-08-2024 AST [Catalytic activity/Vol] 16 U/L Normal 13-39 [facility] Comment on above: Order Comment: FASTI DANIELLE. JKW Performed By: #### C BC, AST, CREAT, ALT #### [address] Automated basophil %Ordered By: Zeinab Wood on 01-08-2024 Basophils/100 WBC (Bld) 1.1 % Normal . [facility] Comment on above: Order Comment: FASTI DANIELLE. JKW Performed By: #### C BC, AST, CREAT, ALT #### [address] Automated basophil countOrde red By: Zeinab Wood on 01-08-2024 Basophils (Bld) [#/Vol] 0.1 10*3/uL Normal 0.0-0.2 [facility] Comment on above: Order Comment: FASTI NG. JKW Result Comment: PERF ORMED BY: [place] [address] PATHOLOGIST [employer] ENGAGEMENT PLANNING OPERATOR MONIK SILVESTRE M.D. Performed By: #### C BC, AST, CREAT, ALT #### [address] Automated blood monocyte cou ntOrdered By: Zeinab Wood on 01-08-2024 Monocytes (Bld) [#/Vol] 0.8 10*3/uL Normal 0.0-0.8 [facility] Comment on above: Order Comment: FASTI NG. JKW Performed By: #### C BC, AST, CREAT, ALT #### [address] Automated eosinophil %Ordere d By: Zeinab Wood on 01-08-2024 Eosinophils/100 WBC (Bld) 1.8 % Normal . [facility] Comment on above: Order Comment: FASTI NG. JKW Performed By: #### C BC, AST, CREAT, ALT #### [address] Automated eosinophil countOr dered By: Zeinab Wood on 01-08-2024 Eosinophils (Bld) [#/Vol] 0.1 10*3/uL Normal 0.0-0.45 [facility] Comment on above: Order Comment: FASTI NG. JKW Performed By: #### C BC, AST, CREAT, ALT #### [address] Automated monocyte %Ordered By: Zeinab Wood on 01-08-2024 Monocytes/100 WBC (Bld) 11.3 % Normal . [facility] Comment on above: Order Comment: FASTI NG. JKW Performed By: #### C BC, AST, CREAT, ALT #### [address] Automated neutrophil %Ordere d By: Zeinab Wood on 01-08-2024 Neutrophils/100 WBC (Bld) 56.5 % Normal . [facility] Comment on above: Order Comment: FASTI NG. JKW Performed By: #### C VAUGHN, AST, CREAT, ALT #### [address] Kathy 01-08-2024 [facility] Telephone (ISSA) KOURTNEY NOVAK ([id number]) 1975 F Date Time Provider Department 01/08/24 ZEINAB WOOD During your visit today, we recorded the following information about you: Rohit Kaye MA 01/08/2024 3:19 PM Signed Lab results received from [facility]. Placed in dr Wood folder for review, copy sent to scanning. [...] Status:Closed by ROHIT KAYE on 01/08/24 Normal [facility] Complete Blood Count Auto Di ffon 01-08-2024 Mean Corpuscular HGB Conc 33.4 g/dL Normal 32.0-35.0 [facility] Comment on above: Order Comment: FASTI DANIELLE. JKW Performed By: #### C BC, AST, CREAT, ALT #### [address] NRBC% 0.1 /100{WBC} Normal 0-0.5 [facility] Comment on above: Order Comment: FASTI NG. JKW Performed By: #### C BC, AST, CREAT, ALT #### [facility] [address] [place] [id number] [place] Creatinineon 01-08-2024 GFR/1.73 sq M.predicted MDRD (S/P/Bld) [Vol rate/Area] mL/min/{1.73_m2} Normal [facility] Comment on above: Order Comment: FASTI NG. JKW Performed By: #### C BC, AST, CREAT, ALT #### [address] Creatinine [Mass/volume] in Serum or PlasmaOrdered By: Zeinab Wood on 01-08-2024 Creatinine [Mass/Vol] 1.00 mg/dL Normal 0.60-1.20 [facility] Comment on above: Order Comment: FASTI DANIELLE. JKW Performed By: #### C BC, AST, CREAT, ALT #### [facility] [address] [place] [address] Erythrocyte distribution wid th [Ratio] by Automated countOrdered By: Zeinab Wood on 01-08-2024 Erythrocyte distribution width (RBC) [Ratio] 13.1 % Normal 11.9-15.3 [facility] Comment on above: Order Comment: FASTI DANIELLE. JKW Performed By: #### C BC, AST, CREAT, ALT #### [facility] [address] [place] [address] Erythrocytes [#/volume] in B lood by Automated countOrdered By: Zeinab Wood on 01-08-2024 RBC (Bld) [#/Vol] 4.29 10*6/uL Normal 3.60-5.00 [facility] Comment on above: Order Comment: FASTI NG. JKW Performed By: #### C BC, AST, CREAT, ALT #### [facility] [address] [place] [address] Hematocrit [Volume Fraction] of Blood by Automated countOrdered By: Zeinab Wood on 01-08-2024 Hematocrit (Bld) [Volume fraction] 39.2 % Normal 34.0-46.4 [facility] Comment on above: Order Comment: FASTI NG. JKW Performed By: #### C BC, AST, CREAT, ALT #### [facility] [address] [place] [address] [place] Hemoglobin [Mass/volume] in BloodOrdered By: Zeinab Wood on 01-08-2024 Hemoglobin (Bld) [Mass/Vol] 13.1 g/dL Normal 11.8-15.4 [facility] Comment on above: Order Comment: FASTI NG. JKW Performed By: #### C BC, AST, CREAT, ALT #### [address] Leukocytes [#/volume] correc jana for nucleated erythrocytes in Blood by Automated counOrdered By: Zeinab Wood on 01-08-2024 WBC corrected for nucl RBC Auto (Bld) [#/Vol] 6.8 10*3/uL 3.8-11.6 [facility] Leukocytes [#/volume] in Blo od by Automated countOrdered By: Zeinab Wood on 01-08-2024 WBC (Bld) [#/Vol] 6.8 10*3/uL Normal 3.8-11.6 [facility] Comment on above: Order Comment: FASTI DANIELLE. JKW Performed By: #### C BC, AST, CREAT, ALT #### [address] Lymphocytes [#/volume] in Bl ood by Automated countOrdered By: Zeinab Wood on 01-08-2024 Lymphocytes (Bld) [#/Vol] 2.0 10*3/uL Normal 1.00-4.8 [facility] Comment on above: Order Comment: FASTI NG. JKW Performed By: #### C BC, AST, CREAT, ALT #### [place] [address] [place] Lymphocytes/100 leukocytes i n Blood by Automated countOrdered By: Zeinab Wood on 01-08-2024 Lymphocytes/100 WBC (Bld) 29.3 % Normal . [facility] Comment on above: Order Comment: FASTI NG. JKW Performed By: #### C BC, AST, CREAT, ALT #### [place] [address] [place] MCH [Entitic mass] by Automa jana countOrdered By: Zeinab Wood on 01-08-2024 MCH (RBC) [Entitic mass] 30.6 pg Normal 24.7-34.3 [facility] Comment on above: Order Comment: FASTI NG. JKW Performed By: #### C BC, AST, CREAT, ALT #### [place] [id number] [place] MCHC Auto (RBC) [Mass/Vol]Or dered By: Zeinab Wood on 01-08-2024 MCHC (RBC) [Mass/Vol] 33.4 g/dL 32.0-35.0 [facility] MCV [Entitic volume] by Auto mated countOrdered By: Zeinab Wood on 01-08-2024 MCV (RBC) [Entitic vol] 91.5 fL Normal 80-100 [facility] Comment on above: Order Comment: PIPER FoleyKW Performed By: #### C BC, AST, CREAT, ALT #### [facility] [address] [place] [address] Neutrophils [#/volume] in Bl ood by Automated countOrdered By: Zeinab Wood on 01-08-2024 Neutrophils (Bld) [#/Vol] 3.9 10*3/uL Normal 1.8-7.7 [facility] Comment on above: Order Comment: PIPER FoleyKW Performed By: #### C BC, AST, CREAT, ALT #### [facility] [address] [place] [address] No Panel InformationOrdered By: Zeinab Wood on 01-08-2024 Estimated GFR (CKD-EPI) > 60.0 mL/Min [facility] Creatinine Clearance (Chem N/A [facility] Nucleated erythrocytes [Pres ence] in Blood by Automated countOrdered By: Zeinab Wood on 01-08-2024 Nucleated RBC Auto Ql (Bld) 0.1 /100{WBC} 0-0.5 [facility] Platelet mean volume [Entiti c volume] in Blood by Automated countOrdered By: Zeinab Wood on 01-08-2024 Platelet mean volume (Bld) [Entitic vol] 8.4 fL Normal 6.3-10.7 [facility] Comment on above: Order Comment: PIPER SANTOS. JKW Performed By: #### C BC, AST, CREAT, ALT #### [facility] [address] [place] [address] Platelets [#/volume] in Bloo d by Automated countOrdered By: Zeinab Wood on 01-08-2024 Platelets (Bld) [#/Vol] 284 10*3/uL Normal 150-450 [facility] Comment on above: Order Comment: PIPER STEWARTW Performed By: #### C BC, AST, CREAT, ALT #### [address] CNPHeather 01-05-2024 CNPN Telephone (NSCAMN) KOURTNEY NOVAK ([id number]) 1975 F Date Time Provider Department 01/05/24 MARIO ALBERTO PHILLIPS [facility] During your visit today, we recorded the following information about you: Mario Alberto Phillips RN 01/05/2024 1:06 PM Signed Spoke with Ms. Kourtney Novak today confirming surgery on Thu03/28/[address] Erik Pineda. Preoperative appointments to be scheduled at a [facility] facility near the patient's home. Allergies As [...] Status:Closed by MARIO ALBERTO PHILLIPS on 01/05/24 [facility] Kathy 01-04-2024 [facility] Telephone (ISSA) KOURTNEY NOVAK ([id number]) 1975 F Date Time Provider Department 01/04/24 ZEINAB WOOD During your visit today, we recorded the following information about you: Verenice Ga RN 01/04/2024 1:47 PM Signed Patient calling Needs 01/01/24 Lab Orders in [facility] please (pended) Also requesting to FAX 01/01/24 Lab Orders to [facility] She will send their FAX # in My Chart Zeinab Wood MD 01/04/2024 2:03 PM Signed Labs are ordered, please print and fax per patient request. MD Jay Grace Laura, MA 01/04/2024 2:45 PM Signed Printed labs. Sent msg to pt to clarify which [facility] to fax to. Labs/Fax sheet in Michelle's [employer] folder. Please fax once clarification is [...] Status:Closed by MICHELLE THOMPSON on 01/04/24 Normal [facility] Automated basophil %Ordered By: Sammie Gonzalez on 11-11-2023 Basophils/100 WBC (Bld) 1.0 % Normal . [facility] Comment on above: Performed By: #### F E, MARIELLA, CBC ####[address] Automated basophil countOrde red By: Sammie Gonzalez on 11-11-2023 Basophils (Bld) [#/Vol] 0.1 10*3/uL Normal 0.0-0.2 [facility] Comment on above: Result Comment: PERF ORMED BY: [facility] [address] [place] [address] PATHOLOGIST [employer] ENGAGEMENT PLANNING OPERATOR MONIK SILVESTRE M.D. Performed By: #### F E, MARIELLA, CBC ####[address] Automated blood monocyte cou ntOrdered By: Sammie Gonzalez on 11-11-2023 Monocytes (Bld) [#/Vol] 0.9 10*3/uL High 0.0-0.8 [facility] Comment on above: Performed By: #### F E, MARIELLA, CBC ####[place] [id number] [address] Automated eosinophil %Ordere d By: Sammie Gonzalez on 11-11-2023 Eosinophils/100 WBC (Bld) 1.3 % Normal . [facility] Comment on above: Performed By: #### F E, MARIELLA, CBC ####[facility] Automated eosinophil countOr dered By: Sammie Gonzalez on 11-11-2023 Eosinophils (Bld) [#/Vol] 0.1 10*3/uL Normal 0.0-0.45 [facility] Comment on above: Performed By: #### F E, MARIELLA, CBC ####[address] Automated monocyte %Ordered By: Sammie Janice on 11-11-2023 Monocytes/100 WBC (Bld) 9.8 % Normal . [facility] Comment on above: Performed By: #### F E, MARIELLA, CBC ####[address] Automated neutrophil %Ordere d By: Sammie Hoy on 11-11-2023 Neutrophils/100 WBC (Bld) 45.3 % Normal . [facility] Comment on above: Performed By: #### F E, MARIELLA, CBC ####[address] CNPNon 11-11-2023 CNPN Telephone (NSCAMN) KOURTNEY NOVAK ([id number]) 1975 F Date Time Provider Department 11/11/23 MARIO ALBERTO PHILLIPS [facility] During your visit today, we recorded the following information about you: Mario Alberto Phillips, RN 11/11/2023 11:41 AM Signed Spoke with Ms.Mandie Alex Novak today following up on the [employer] message from 10/08/2023. She sent a message about having symptoms of blurry vision and was advised to schedule an appointment with ophthalmology. Today the patient stated that the blurry vision was 1 incident and that she did not have any vision changes since. She was made aware to send an update or call for any questions or concerns. Mario Alberto Phillips RN, Compliance Attorney Allergies As of Date: 11/11/2023 (No Known Allergies) Date Reviewed: 09/28/2023 Reviewed by: Michelle Thompson MA - Fully Assessed Reason for Visit: Care Coordination [3490] Cmt: follow up Prescriptions as of 11/11/2023 [...] by MARIO ALBERTO PHILLIPS on 11/11/23 Normal [facility] Complete Blood Count Auto Di ffon 11-11-2023 Mean Corpuscular HGB Conc 32.6 g/dL Normal 32.0-35.0 [facility] Comment on above: Performed By: #### F E, MARIELLA, CBC ####[place] [id number] [facility] NRBC% 0.1 /100{WBC} Normal 0-0.5 [facility] Comment on above: Performed By: #### F E, MARIELLA, CBC ####[place] [id number] [facility] Erythrocyte distribution wid th [Ratio] by Automated countOrdered By: Sammie Gonzalez on 11-11-2023 Erythrocyte distribution width (RBC) [Ratio] 13.3 % Normal 11.9-15.3 [facility] Comment on above: Performed By: #### F E, MARIELLA, CBC ####[place] [id number] [facility] Erythrocytes [#/volume] in B lood by Automated countOrdered By: Sammie Gonzalez on 11-11-2023 RBC (Bld) [#/Vol] 4.34 10*6/uL Normal 3.60-5.00 [facility] Comment on above: Performed By: #### F E, MARIELLA, CBC ####[place] [id number] [facility] Ferritin [Mass/volume] in Se rum or PlasmaOrdered By: Sammie Gonzalez on 11-11-2023 Ferritin [Mass/Vol] 88.4 ng/mL Normal 11.0-306.8 [facility] Comment on above: Result Comment: PERF ORMED BY: [facility] [address] [place] [id number] PATHOLOGIST [employer] ENGAGEMENT PLANNING OPERATOR MONIK SILVESTRE M.D. Performed By: #### F E, MARIELLA, CBC ####[place] [id number] [facility] Hematocrit [Volume Fraction] of Blood by Automated countOrdered By: Sammie Gonzalez on 11-11-2023 Hematocrit (Bld) [Volume fraction] 39.9 % Normal 34.0-46.4 [facility] Comment on above: Performed By: #### F E, MARIELLA, CBC ####[place] [id number] [address] Hemoglobin [Mass/volume] in BloodOrdered By: Sammie Gonzalez on 11-11-2023 Hemoglobin (Bld) [Mass/Vol] 13.0 g/dL Normal 11.8-15.4 [facility] Comment on above: Performed By: #### F Jason MARIELLA, CBC ####[address] Iron [Mass/volume] in Serum or PlasmaOrdered By: Sammie Gonzalez on 11-11-2023 Iron [Mass/Vol] 93 ug/dL Normal 50-212 [facility] Comment on above: Performed By: #### F MARIELLA Gomez, CBC ####[address] Leukocytes [#/volume] correc jana for nucleated erythrocytes in Blood by Automated counOrdered By: Sammie Gonzalez on 11-11-2023 WBC corrected for nucl RBC Auto (Bld) [#/Vol] 8.7 10*3/uL 3.8-11.6 [facility] Leukocytes [#/volume] in Blo od by Automated countOrdered By: Sammie Gonzalez on 11-11-2023 WBC (Bld) [#/Vol] 8.7 10*3/uL Normal 3.8-11.6 [facility] Comment on above: Performed By: #### F E, MARIELLA, CBC ####[address] Lymphocytes [#/volume] in Bl ood by Automated countOrdered By: Sammie Gonzalez on 11-11-2023 Lymphocytes (Bld) [#/Vol] 3.7 10*3/uL Normal 1.00-4.8 [facility] Comment on above: Performed By: #### F E, MARIELLA, CBC ####[address] Lymphocytes/100 leukocytes i n Blood by Automated countOrdered By: Sammie Gonzalez on 11-11-2023 Lymphocytes/100 WBC (Bld) 42.6 % Normal . [facility] Comment on above: Performed By: #### F Jason, MARIELLA, CBC ####[address] MCH [Entitic mass] by Automa jana countOrdered By: Sammie Gonzalez on 11-11-2023 MCH (RBC) [Entitic mass] 30.0 pg Normal 24.7-34.3 [facility] Comment on above: Performed By: #### F Jason, MARIELLA, CBC ####[address] MCHC Auto (RBC) [Mass/Vol]Or dered By: Sammie Gonzalez on 11-11-2023 MCHC (RBC) [Mass/Vol] 32.6 g/dL 32.0-35.0 [facility] MCV [Entitic volume] by Auto mated countOrdered By: Sammie Gonzalez on 11-11-2023 MCV (RBC) [Entitic vol] 92.1 fL Normal 80-100 [facility] Comment on above: Performed By: #### F Jason, MARIELLA, CBC ####[address] Neutrophils [#/volume] in Bl ood by Automated countOrdered By: Sammie Gonzalez on 11-11-2023 Neutrophils (Bld) [#/Vol] 4.0 10*3/uL Normal 1.8-7.7 [facility] Comment on above: Performed By: #### F Jason, MARIELLA, CBC ####[address] Nucleated erythrocytes [Pres ence] in Blood by Automated countOrdered By: Sammie Gonzalez on 11-11-2023 Nucleated RBC Auto Ql (Bld) 0.1 /100{WBC} 0-0.5 [facility] Platelet mean volume [Entiti c volume] in Blood by Automated countOrdered By: Sammie Gonzalez on 11-11-2023 Platelet mean volume (Bld) [Entitic vol] 9.0 fL Normal 6.3-10.7 [facility] Comment on above: Performed By: #### F E, MARIELLA, CBC ####[facility] [id number] [place] [id number] [facility] Platelets [#/volume] in Bloo d by Automated countOrdered By: Sammie Gonzalez on 11-11-2023 Platelets (Bld) [#/Vol] 363 10*3/uL Normal 150-450 [facility] Comment on above: Performed By: #### F Jason, MARIELLA, CBC ####[facility] [id number] [place] [id number] [facility] CNOVon 09-28-2023 CNOV Office Visit (RHEUAV ) KOURTNEY NOVAK ([id number]) 1975 F Date Time Provider Department 09/28/23 3:00 PM ZEINAB WOOD During your visit today, we recorded the following information about you: Pulse Blood pressure Weight Height 86/minute 102/47 108.4 kg 1.638 m Zeinab Wood MD 09/28/2023 3:26 PM Signed Kourtney Novak is a 47 year old [...] the axilla (more content not included)... Normal [facility] Kathy 07-02-2023 [facility] Telephone ([facility]) MARINOKOURTNEY ([id number]) 1975 F Date Time Provider Department 07/02/23 LUCY ERIK F NSCAMN During your visit today, we recorded the following information about you: Justine Pagan 07/02/2023 3:07 PM Signed General Call Caller : Pt Contact Reason for Call : Pt would like to go forward w scheduling surgery. However, she would like surgery to be scheduled in March 2024, pt would like to discuss further Patient requesting return call ? Yes Mario Alberto Phillips, VENUS 07/06/2023 3:24 PM Signed Spoke with Ms. Kourtney Novak. We discussed that it is so far out to schedule surgery in March 2024. We discussed option of possible surgery dates. She will be contacted during late December- January 2024 to confirm the date of surgery and schedule the preoperative appointments. Mario Alberto Phillips RN, Compliance Attorney Allergies As of Date: 07/02/2023 (No Known Allergies) Date Reviewed: 06/30/2023 Reviewed by: Heahter Moy APRN.HOSPITAL RECEIVING CLERK - Fully Assessed Reason for Visit: Patient [...] Status:Closed by MARIO ALBERTO PHILLIPS on 07/06/23 [facility] CNOVon 06-30-2023 CNOV Office Visit (NSCAMN ) KOURTNEY NOVAK ([id number]) 1975 F Date Time Provider Department 06/30/23 [...] [facility] AND [facility] [place], [facility] CC: Patient Care Team: Sammie Gonzalez MD as PCP - General (Family Medicine) Montse Lou, DO - [facility] ASSESSMENT: In summary, Kourtney Novak is [...] and follow-up via virtual visit. Heather Moy APRN.HOSPITAL RECEIVING CLERK I have reviewed the progess note obtained [...] which included preparing to see the patient, [id number] patient care, completing clinical documentation, performing a [...] Former Smo (more content not included)... Normal [facility] CNOVon 06-01-2023 CNOV Office Visit (NSCAMN ) KOURTNEY NOVAK ([id number]) 1975 F Date Time Provider Department 06/01/23 7:00 AM MONTSE LOU [facility] During your visit today, we recorded the following information about you: Temperature Pulse Respiration Blood pressure 99.3 degrees 93/minute 18/minute 116/54 Weight Height 101.9 kg 1.64 m Montse Lou DO, PhD 06/01/2023 9:24 AM Signed [facility] New Patient Consultation Referred by Sammie Gonzalez MD [address] [place] [address] Diagnosis: Multiple meningioma's with interval growth since 2016. Subjective History of Present Illness: Kourtney Novak is a 47 year old right handed female referred to [facility] by her PCP due to interval growth of known meningioma's since 2016. She started noticing imbalance a few months ago, leaning and veering to her right. 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 She lives in [place]. Interval History: 06/01/2023: Patient presents to establish care with [facility] and to discuss treatment options for [...] cataracts, H (more content not included)... Normal [facility] Alanine aminotransferase [En zymatic activity/volume] in Serum or PlasmaOrdered By: Sammie Gonzalez on 05-22-2023 ALT [Catalytic activity/Vol] 14 U/L 7-52 [facility] Albumin [Mass/volume] in Ser um or Plasma by Bromocresol green (BCG) dye binding methoOrdered By: Sammie Gonzalez on 05-22-2023 Albumin BCG dye [Mass/Vol] 4.1 g/dL 3.5-5.7 [facility] Alkaline phosphatase [Enzyma tic activity/volume] in Serum or PlasmaOrdered By: Sammie Gonzalez on 05-22-2023 ALP [Catalytic activity/Vol] 45 U/L 34-104 [facility] Aspartate aminotransferase [ Enzymatic activity/volume] in Serum or PlasmaOrdered By: Sammie Gonzalez on 05-22-2023 AST [Catalytic activity/Vol] 12 U/L 13-39 [facility] Basophils Auto (Bld) [#/Vol] Ordered By: Sammie Gonzalez on 05-22-2023 Basophils (Bld) [#/Vol] 0.1 10*3/uL 0.0-0.2 [facility] Basophils/100 WBC Auto (Bld) Ordered By: Sammie Gonzalez on 05-22-2023 Basophils/100 WBC (Bld) 0.9 % . F [facility] Bilirubin.total [Mass/volume ] in Serum or PlasmaOrdered By: Sammie Gonzalez on 05-22-2023 Bilirubin [Mass/Vol] 0.3 mg/dL 0.3-1.[address] [facility] Calcium [Mass/volume] in Ser um or PlasmaOrdered By: Sammie Gonzalez on 05-22-2023 Calcium [Mass/Vol] 9.5 mg/dL 8.6-10.3 [facility] Carbon dioxide, total [Moles /volume] in Serum or PlasmaOrdered By: Sammie Gonzalez on 05-22-2023 CO2 [Moles/Vol] 25.4 mmol/L 21.0-31.0 [facility] Chloride [Moles/volume] in S micki or PlasmaOrdered By: Sammie Gonzalez on 05-22-2023 Chloride [Moles/Vol] 106 mmol/L 98-[address] [facility] Cholesterol [Mass/volume] in Serum or PlasmaOrdered By: Sammie Gonzalez on 05-22-2023 Cholesterol [Mass/Vol] 182 mg/dL 140-200 [facility] Comment on above: Chol less than 200 m g/dl low riskChol 201-239 mg/dl borderline riskChol 240 mg/dl and greater high risk Cholesterol in LDL Calc [Mas s/Vol]Ordered By: Sammie Gonzalez on 05-22-2023 Cholesterol in LDL [Mass/Vol] 58 mg/dL 0-100 [facility] Comment on above: LDL ATP III CLASSIFI CATIONLDL less than 100 mg/dL OptimalLDL 100-129 mg/dL Near or above optimalLDL 130-159 mg/dL Borderline highLDL 160-189 mg/dL HighLDL greater than 189 mg/dL Very high Cholesterol in VLDL Calc [Ma ss/Vol]Ordered By: Sammie Gonzalez on 05-22-2023 Cholesterol in VLDL [Mass/Vol] 44 mg/dL [facility] Creatinine [Mass/volume] in Serum or PlasmaOrdered By: Sammie Gonzalez on 05-22-2023 Creatinine [Mass/Vol] 0.89 mg/dL 0.60-1.20 [facility] Eosinophils Auto (Bld) [#/Vo l]Ordered By: Sammie Gonzalez on 05-22-2023 Eosinophils (Bld) [#/Vol] 0.1 10*3/uL 0.0-0.45 [facility] Eosinophils/100 WBC Auto (Bl d)Ordered By: Sammie Gonzalez on 05-22-2023 Eosinophils/100 WBC (Bld) 1.3 % . [facility] Erythrocyte distribution wid th Auto (RBC) [Ratio]Ordered By: Sammie Gonzalez on 05-22-2023 Erythrocyte distribution width (RBC) [Ratio] 20.4 % 11.9-15.3 [facility] Ferritin [Mass/volume] in Se rum or PlasmaOrdered By: Sammie Gonzalez on 05-22-2023 Ferritin [Mass/Vol] 147.2 ng/mL 11.0-306.[address] [facility] Globulin Calc (S) [Mass/Vol] Ordered By: Sammie Gonzalez on 05-22-2023 Globulin (S) [Mass/Vol] 1.8 g/dL F [facility] Glucose [Mass/volume] in Ser um or PlasmaOrdered By: Sammie Gonzalez on 05-22-2023 Glucose [Mass/Vol] 88 mg/dL 70-100 [facility] Comment on above: ADA recommended refe rence rangeRandom Glucose Reference Range is dependent on time and content of last meal. Glucose of more than 200 mg/dL in a nonstressed, ambulatory subject supports the diagnosis of Diabetes Mellitus. Glucose mean value [Mass/vol ume] in Blood Estimated from glycated hemoglobinOrdered By: Sammie Gonzalez on 05-22-2023 Average glucose Estimated from glycated hemoglobin (Bld) [Mass/Vol] 105 mg/dL [facility] Hematocrit Auto (Bld) [Volum e fraction]Ordered By: Sammie Gonzalez on 05-22-2023 Hematocrit (Bld) [Volume fraction] 37.0 % 34.0-46.4 [facility] Hemoglobin A1c percentageOrd ered By: Sammie Gonzalez on 05-22-2023 HbA1c (Bld) [Mass fraction] 5.3 % 4.3-5.6 [facility] Comment on above: Increased risk for d iabetes: 5.7 - 6.4diabetes: >6.4glycemic control for adults with diabetes: <7.0 Hemoglobin [Mass/volume] in BloodOrdered By: Sammie Gonzalez on 05-22-2023 Hemoglobin (Bld) [Mass/Vol] 11.9 g/dL 11.8-15.4 [facility] Iron [Mass/volume] in Serum or PlasmaOrdered By: Sammie Gonzalez on 05-22-2023 Iron [Mass/Vol] 57 ug/dL 50-212 [facility] Leukocytes [#/volume] correc jana for nucleated erythrocytes in Blood by Automated counOrdered By: Sammie Gonzalez on 05-22-2023 WBC corrected for nucl RBC Auto (Bld) [#/Vol] 9.6 10*3/uL 3.8-11.6 [facility] Lymphocytes Auto (Bld) [#/Vo l]Ordered By: Sammie Gonzalez on 05-22-2023 Lymphocytes (Bld) [#/Vol] 2.2 10*3/uL 1.00-4.8 [facility] Lymphocytes/100 WBC Auto (Bl d)Ordered By: Sammie Gonzalez on 05-22-2023 Lymphocytes/100 WBC (Bld) 22.5 % . [facility] MCH Auto (RBC) [Entitic mass ]Ordered By: Sammie Gonzalez on 05-22-2023 MCH (RBC) [Entitic mass] 27.7 pg 24.7-34.3 [facility] MCHC Auto (RBC) [Mass/Vol]Or dered By: Sammie Gonzalez on 05-22-2023 MCHC (RBC) [Mass/Vol] 32.2 g/dL 32.0-35.0 [facility] MCV Auto (RBC) [Entitic vol] Ordered By: Sammie Gonzalez on 05-22-2023 MCV (RBC) [Entitic vol] 85.8 fL 80-100 [facility] Monocytes Auto (Bld) [#/Vol] Ordered By: Sammie Gonzalez on 05-22-2023 Monocytes (Bld) [#/Vol] 1.0 10*3/uL 0.0-0.8 [facility] Monocytes/100 WBC Auto (Bld) Ordered By: Sammie Gonzalez on 05-22-2023 Monocytes/100 WBC (Bld) 9.9 % . F [facility] Neutrophils Auto (Bld) [#/Vo l]Ordered By: Sammie Gonzalez on 05-22-2023 Neutrophils (Bld) [#/Vol] 6.3 10*3/uL 1.8-7.7 [facility] Neutrophils/100 WBC Auto (Bl d)Ordered By: Sammie Gonzalez on 05-22-2023 Neutrophils/100 WBC (Bld) 65.4 % . [facility] No Panel InformationOrdered By: Sammie Gonzalez on 05-22-2023 Estimated GFR (CKD-EPI) > 60.0 mL/Min [facility] Creatinine Clearance (Chem N/A [facility] Nucleated erythrocytes [Pres ence] in Blood by Automated countOrdered By: Sammie Gonzalez on 05-22-2023 Nucleated RBC Auto Ql (Bld) 0.1 /100{WBC} 0-0.5 [facility] Platelet mean volume Auto (B ld) [Entitic vol]Ordered By: Sammie Gonzalez on 05-22-2023 Platelet mean volume (Bld) [Entitic vol] 9.0 fL 6.3-10.7 [facility] Platelets Auto (Bld) [#/Vol] Ordered By: Sammie Gonzalez on 05-22-2023 Platelets (Bld) [#/Vol] 339 10*3/uL 150-450 [facility] Potassium [Moles/volume] in Serum or PlasmaOrdered By: Samime Gonzalez on 05-22-2023 Potassium [Moles/Vol] 3.9 mmol/L 3.5-5.1 [facility] Protein [Mass/volume] in Ser um or PlasmaOrdered By: Sammie Gonzalez on 05-22-2023 Protein [Mass/Vol] 5.9 g/dL 6.4-8.9 [facility] RBC Auto (Bld) [#/Vol]Ordere d By: Sammie Gonzalez on 05-22-2023 RBC (Bld) [#/Vol] 4.31 10*6/uL 3.60-5.00 [facility] Serum or plasma albumin/glob ulin mass ratioOrdered By: Sammie Gonzalez on 05-22-2023 Albumin/Globulin [Mass ratio] 2.3 {ratio} [facility] Serum or plasma anion gap de terminationOrdered By: Sammie Gonzalez on 05-22-2023 Anion gap [Moles/Vol] 10.5 mmol/L 6.0-15.0 [facility] Serum or plasma high density lipoprotein (HDL) cholesterol measurementOrdered By: Sammie Gonzalez on 05-22-2023 Cholesterol in HDL [Mass/Vol] 79 mg/dL 23-92 [facility] Comment on above: HDL CHOL ATP-III CLA SSIFICATION Cardiovascular RiskHDL > or equal to 60 mg/dL LOWHDL < 40 mg/dL HIGH Serum or plasma total choles terol/high density lipoprotein (HDL) cholesterol mass ratOrdered By: Sammie Gonzalez on 05-22-2023 Cholesterol.total/Tali sterol in HDL [Mass ratio] 2.3 {ratio} <5.0 [facility] Sodium [Moles/volume] in Ser um or PlasmaOrdered By: Sammie Gonzalez on 05-22-2023 Sodium [Moles/Vol] 138 mmol/L 136-145 [facility] Thyrotropin [Units/volume] i n Serum or PlasmaOrdered By: Sammie Gonzalez on 05-22-2023 TSH Qn 3.27 m[IU]/L 0.45-5.33 [facility] Thyroxine (T4) free [Mass/vo lume] in Serum or PlasmaOrdered By: Sammie Gonzalez on 05-22-2023 Free T4 [Mass/Vol] 0.91 ng/dL 0.61-1.12 [facility] Triglyceride [Mass/volume] i n Serum or PlasmaOrdered By: Sammie Gonzalez on 05-22-2023 Triglyceride [Mass/Vol] 223 mg/dL 0-149 [facility] Comment on above: TRIG ATP III CLASSIF ICATIONTRIG less than 150 mg/dL NormalTRIG 150-199 mg/dL Borderline highTRIG 200-500 mg/dL High TRIG greater than 500 mg/dL Very highStandard traceable to the Center for Disease Conrtrol and Prevention (CDC) test method. Urea nitrogen [Mass/volume] in Serum or PlasmaOrdered By: Sammie Gonzalez on 05-22-2023 Urea nitrogen [Mass/Vol] 10 mg/dL 7-25 [facility] WBC Auto (Bld) [#/Vol]Ordere d By: Sammie Gonzalez on 05-22-2023 WBC (Bld) [#/Vol] 9.6 10*3/uL 3.8-11.6 [facility] Basophils Auto (Bld) [#/Vol] Ordered By: Sammie Gonzalez on 04-15-2023 Basophils (Bld) [#/Vol] 0.1 10*3/uL 0.0-0.2 [facility] Basophils/100 WBC Auto (Bld) Ordered By: Sammie Gonzalez on 04-15-2023 Basophils/100 WBC (Bld) 0.8 % . F [facility] Eosinophils Auto (Bld) [#/Vo l]Ordered By: Sammie Gonzalez on 04-15-2023 Eosinophils (Bld) [#/Vol] 0.1 10*3/uL 0.0-0.45 [facility] Eosinophils/100 WBC Auto (Bl d)Ordered By: Sammie Gonzalez on 04-15-2023 Eosinophils/100 WBC (Bld) 1.3 % . [facility] Erythrocyte distribution wid th Auto (RBC) [Ratio]Ordered By: Sammie Gonzalez on 04-15-2023 Erythrocyte distribution width (RBC) [Ratio] 15.8 % 11.9-15.3 [facility] Ferritin [Mass/volume] in Se rum or PlasmaOrdered By: Sammie Gonzalez on 04-15-2023 Ferritin [Mass/Vol] 5.1 ng/mL 11.0-306.8 [facility] Hematocrit Auto (Bld) [Volum e fraction]Ordered By: Sammie Gonzalez on 04-15-2023 Hematocrit (Bld) [Volume fraction] 35.0 % 34.0-46.4 [facility] Hemoglobin [Mass/volume] in BloodOrdered By: Sammie Gonzalez on 04-15-2023 Hemoglobin (Bld) [Mass/Vol] 11.2 g/dL 11.8-15.4 [facility] Iron [Mass/volume] in Serum or PlasmaOrdered By: Sammie Gonzalez on 04-15-2023 Iron [Mass/Vol] 18 ug/dL 50-212 [facility] Leukocytes [#/volume] correc jana for nucleated erythrocytes in Blood by Automated counOrdered By: Sammie Gonzalez on 04-15-2023 WBC corrected for nucl RBC Auto (Bld) [#/Vol] 9.6 10*3/uL 3.8-11.6 [facility] Lymphocytes Auto (Bld) [#/Vo l]Ordered By: Sammie Gonzalez on 04-15-2023 Lymphocytes (Bld) [#/Vol] 2.2 10*3/uL 1.00-4.8 [facility] Lymphocytes/100 WBC Auto (Bl d)Ordered By: Sammie Gonzalez on 04-15-2023 Lymphocytes/100 WBC (Bld) 23.3 % . [facility] MCH Auto (RBC) [Entitic mass ]Ordered By: Sammie Gonzalez on 04-15-2023 MCH (RBC) [Entitic mass] 26.0 pg 24.7-34.3 [facility] MCHC Auto (RBC) [Mass/Vol]Or dered By: Sammie Gonzalez on 04-15-2023 MCHC (RBC) [Mass/Vol] 32.0 g/dL 32.0-35.0 [facility] MCV Auto (RBC) [Entitic vol] Ordered By: Sammie Gonzalez on 04-15-2023 MCV (RBC) [Entitic vol] 81.2 fL 80-100 [facility] Monocytes Auto (Bld) [#/Vol] Ordered By: Sammie Gonzalez on 04-15-2023 Monocytes (Bld) [#/Vol] 0.7 10*3/uL 0.0-0.8 [facility] Monocytes/100 WBC Auto (Bld) Ordered By: Sammie Gonzalez on 04-15-2023 Monocytes/100 WBC (Bld) 7.7 % . [facility] Neutrophils Auto (Bld) [#/Vo l]Ordered By: Sammie Gonzalez on 04-15-2023 Neutrophils (Bld) [#/Vol] 6.4 10*3/uL 1.8-7.7 [facility] Neutrophils/100 WBC Auto (Bl d)Ordered By: Sammie Gonzalez on 04-15-2023 Neutrophils/100 WBC (Bld) 66.9 % . [facility] Nucleated erythrocytes [Pres ence] in Blood by Automated countOrdered By: Sammie Gonzalez on 04-15-2023 Nucleated RBC Auto Ql (Bld) 0.4 /100{WBC} 0-0.5 [facility] Platelet mean volume Auto (B ld) [Entitic vol]Ordered By: Sammie Goznalez on 04-15-2023 Platelet mean volume (Bld) [Entitic vol] 9.1 fL 6.3-10.7 [facility] Platelets Auto (Bld) [#/Vol] Ordered By: Sammie Gonzalez on 04-15-2023 Platelets (Bld) [#/Vol] 427 10*3/uL 150-450 [facility] RBC Auto (Bld) [#/Vol]Ordere d By: Sammie Gonzalez on 04-15-2023 RBC (Bld) [#/Vol] 4.31 10*6/uL 3.60-5.00 [facility] WBC Auto (Bld) [#/Vol]Ordere d By: Sammie Gonzalez on 04-15-2023 WBC (Bld) [#/Vol] 9.6 10*3/uL 3.8-11.6 [facility] BNPon 10-11-2022 Natriuretic peptide B (Bld) [Mass/Vol] 173.0 pg/mL Normal <=450.0 [facility] Comment on above: Performed By: #### L ACT #### [facility] [address] [place] [address] Dr. oK Durbin CBC W MANUAL DIFFon 10-11-19 23 ATYPICAL LYMPH # 0.18 103/ul Normal [facility] Comment on above: Performed By: #### C BCMAN #### [facility] [address] [place] [address] Dr. Ko Durbin ATYPICAL LYMPH % 2 % Normal [facility] Comment on above: Performed By: #### C BCMAN #### [facility] [address] [place] [address] Dr. Ko Durbin BAND # 0.0 103/ul Normal 0.0-0.3 [facility] Comment on above: Performed By: #### C BCMAN #### [facility] [address] [place] [address] Dr. Ko Durbin BAND % 0 % Normal 0-5 [facility] Comment on above: Performed By: #### C BCMAN #### [facility] [address] [place] [address] Dr. Ko Durbin BASOM # 0.00 103/ul Normal 0.00-0.10 [facility] Comment on above: Performed By: #### C BCMAN #### [facility] [address] [place], [place] [id number] Dr. Ko Durbin BASOM % 0.0 % Critically low 0.2-2.0 [facility] Comment on above: Performed By: #### C BCMAN #### [facility] [address] [place] [address] Dr. Ko Durbin BLAST # Normal [facility] Comment on above: Performed By: #### C BCCHRISTIANO #### [facility] [address] [place] [address] Dr. Ko Durbin BLAST % Normal [facility] Comment on above: Performed By: #### C BCCHRISTIANO #### [facility] [address] [place] [address] Dr. Ko Durbin CORRECTED WBC Normal 4.0-11.0 [facility] Comment on above: Performed By: #### C MARSHA #### [facility] [address] [place] [address] Dr. Ko Durbin EOS # 0.00 103/ul Normal 0.00-0.70 [facility] Comment on above: Performed By: #### C MARSHA #### [facility] [address] [place] [address] Dr. Ko Durbin EOS% 0.0 % Critically low 0.9-7.0 [facility] Comment on above: Performed By: #### C MARSHA #### [facility] [address] [place] [address] Dr. Ko Durbin HCT 32.8 % Critically low 36.0-48.0 [facility] Comment on above: Performed By: #### C BCCHRISTIANO #### [facility] [address] [place] [address] Dr. Ko Durbin HGB 11.1 g/dl Critically low 12.0-16.0 [facility] Comment on above: Performed By: #### C BCCHRISTIANO #### [facility] [address] [place] [address] Dr. Ko Durbin LYMPHM # 0.18 103/ul Critically low 1.20-3.80 [facility] Comment on above: Performed By: #### C BCCHRISTIANO #### [facility] [address] [address] [address] Ko Durbin LYMPHM% 2.0 % Critically low 20.5-60.0 [facility] Comment on above: Performed By: #### C MARSHA #### [facility] [address] [address] [address] Ko Durbin MCH 27.7 pg Normal 26.7-34.0 [facility] Comment on above: Performed By: #### C MARSHA #### [facility] [address] [address] [address] Ko Durbin MCHC 33.8 g/dl Normal 29.9-35.2 [facility] Comment on above: Performed By: #### C MARSHA #### [facility] [address] [place] [address] Dr. Ko Durbin MCV 81.8 fL Normal 81.0-99.0 [facility] Comment on above: Performed By: #### Ryan LARSON #### [facility] [address] [place] [address] Dr. Ko Durbin METAMYELOCYTE # Normal [facility] Comment on above: Performed By: #### C MARSHA #### [facility] [address] [address] [address] Ko Durbin METAMYELOCYTE % Normal [facility] Comment on above: Performed By: #### Ryan LARSON #### [facility] [address] [address] [address] Ko Durbin MONOM# 0.09 103/ul Critically low 0.30-0.80 [facility] Comment on above: Performed By: #### C MARSHA #### [facility] [address] [address] [address] Ko Durbin MONOM% 1.0 % Critically low 1.7-12.0 [facility] Comment on above: Performed By: #### C MARSHA #### [facility] [address] [address] [address] Ko Durbin MPV 9.8 fL Normal 9.5-13.5 [facility] Comment on above: Performed By: #### C BCMAN #### [facility] [address] [address] [address] Ko Durbin MYELOCYTE # Normal [facility] Comment on above: Performed By: #### C BCMAN #### [facility] [address] [address] [address] Ko Durbin MYELOCYTE % Normal [facility] Comment on above: Performed By: #### C BCMAN #### [facility] [address] [place] [address] Dr. Ko Durbin NRBC Normal [facility] Comment on above: Performed By: #### C BCCHRISTIANO #### [facility] [address] [place] [address] Dr. Ko Durbin PLT 375 103/ul Normal 150-450 [facility] Comment on above: Performed By: #### C MARSHA #### [facility] [address] [place] [address] Dr. Ko Durbin RBC 4.01 106/ul Critically low 4.20-5.40 [facility] Comment on above: Performed By: #### C BCCHRISTIANO #### [facility] [address] [place] [address] Dr. Ko Durbin RDW 13.5 % Normal 11.0-15.0 [facility] Comment on above: Performed By: #### C BCCHRISTIANO #### [facility] [address] [place] [address] Dr. Ko Durbin SEG # 8.55 103/ul Critically high 1.40-6.50 [facility] Comment on above: Performed By: #### C BCMAN #### [facility] [address] [place] [address] Dr. Ko Durbin SEG % 95.0 % Critically high 43.0-75.0 [facility] Comment on above: Performed By: #### C BCMAN #### [facility] [address] [place] [address] Dr. Ko Durbin WBC 9.0 103/ul Normal 4.0-11.0 [facility] Comment on above: Performed By: #### C BCMAN #### [facility] [address] [address] [address] Ko Durbin POINT OF CARE GLUCOSEon 09-15 Glucose [Mass/Vol] 98 mg/dL Normal 74-106 [facility] Comment on above: Performed By: #### L ACT #### [facility] [address] [address] [address] Ko Durbin Glucose [Mass/Vol] 158 mg/dL Critically high 74-106 [facility] Comment on above: Performed By: #### P OCGLUC #### [facility] [address] [address] [address] Ko Durbin PROF 14(COMP METB)on 023 Albumin [Mass/Vol] 3.7 g/dL Normal 3.4-5.0 [facility] Comment on above: Performed By: #### L ACT #### [facility] [address] [place] [address] Dr. Ko Durbin Albumin/Globulin [Mass ratio] 1.2 {ratio} Normal [facility] Comment on above: Performed By: #### L ACT #### [facility] [address] [place] [address] Dr. Ko Durbin ALP [Catalytic activity/Vol] 42 U/L Critically low 46-116 [facility] Comment on above: Performed By: #### L ACT #### [facility] [address] [place] [address] Dr. Ko Durbin ALT [Catalytic activity/Vol] 30 U/L Normal 14-59 [facility] Comment on above: Performed By: #### L ACT #### [facility] [address] [address] [address] Ko Durbin Anion gap [Moles/Vol] 17.1 mmol/L Normal [facility] Comment on above: Performed By: #### L ACT #### [facility] [address] [place] [address] Dr. Ko Durbin AST [Catalytic activity/Vol] 15 U/L Normal 15-37 [facility] Comment on above: Performed By: #### L ACT #### [facility] Laboratory [address] [address] [address] Ko Durbin Bilirubin [Mass/Vol] 0.2 mg/dL Normal 0.2-1.0 [facility] Comment on above: Performed By: #### L ACT #### [facility] [address] [address] [address] Ko Durbin Calcium [Mass/Vol] 9.6 mg/dL Normal 8.5-10.1 [facility] Comment on above: Performed By: #### L ACT #### [facility] [address] [address] [address] Ko Durbin Chloride [Moles/Vol] 100 mmol/L Normal 98-107 [facility] Comment on above: Performed By: #### L ACT #### [facility] [address] [address] [address] Ko Durbin CO2 [Moles/Vol] 22.3 mmol/L Normal 21.0-32.0 [facility] Comment on above: Performed By: #### L ACT #### [facility] [address] [address] [address] Ko Durbin Creatinine [Mass/Vol] 1.10 mg/dL Critically high 0.55-1.02 [facility] Comment on above: Performed By: #### L ACT #### [facility] [address] [address] [address] Ko Durbin EGFR-AF BERMUDIAN >60 Normal >=60 [facility] Comment on above: Performed By: #### L ACT #### [facility] [address] [address] [address] Ko Durbin EGFR-NON AF BERMUDIAN 54 mL/min/1.73m2 Critically low >=60 [facility] Comment on above: Performed By: #### L ACT #### [facility] [address] [address] [address] Ko Durbin Globulin (S) [Mass/Vol] 3.1 g/dL Normal [facility] Comment on above: Performed By: #### L ACT #### [facility] [address] [address] [address] Ko Durbin Glucose [Mass/Vol] 180 mg/dL Critically high 74-106 [facility] Comment on above: Performed By: #### L ACT #### [facility] [address] [address] [address] Ko Durbin Potassium [Moles/Vol] 3.4 mmol/L Critically low 3.5-5.1 [facility] Comment on above: Performed By: #### L ACT #### [facility] [address] [address] [address] Ko Durbin Protein [Mass/Vol] 6.8 g/dL Normal 6.4-8.2 [facility] Comment on above: Performed By: #### L ACT #### [facility] [address] [address] [address] Ko Durbin Sodium [Moles/Vol] 136 mmol/L Normal 136-145 [facility] Comment on above: Performed By: #### L ACT #### [facility] [address] [address] [address] Ko Durbin Urea nitrogen [Mass/Vol] 19.0 mg/dL Critically high 7.0-18.0 [facility] Comment on above: Performed By: #### L ACT #### [facility] [address] [address] [address] Ko Durbin Urea nitrogen/Creatinine [Mass ratio] 17.3 mg/mg Normal [facility] Comment on above: Performed By: #### L ACT #### [facility] [address] [address] [address] Ko Durbin BNPon 10-10-2022 Natriuretic peptide B (Bld) [Mass/Vol] 291.0 pg/mL Normal <=450.0 [facility] Comment on above: Performed By: #### C MP, CMADM, BNP #### [facility] [address] [address] [address] Ko Durbin CARDIAC PERRY ADMITon 023 CK [Catalytic activity/Vol] 286 U/L Critically high 26-192 [facility] Comment on above: Performed By: #### C MP, CMADM, BNP #### [facility] [address] [address] [address] Ko Durbin CK.MB [Mass/Vol] 4.51 ng/mL Critically high <=3.60 [facility] Comment on above: Performed By: #### C MP, CMADM, BNP #### [facility] [address] [place] [address] Dr. Ko Durbin HSTROP 5.0 pg/mL Normal 4.0-51.3 [facility] Comment on above: Result Comment: CUT- OFF POINTS HAVE BEEN ESTABLISHED BASED ON THE FOURTH UNIVERSAL DEFINITIONS OF MYOCARDIAL INFARCTION. THE UPPER REFERENCE LIMIT (URL) OF TROPONIN, DEFINED THE 99TH PERCENTILE OF cTnI DISTRIBUTION IN A REFERENCE POPULATION, HAS BEEN CONFIRMED THE DECISION THRESHOLD FOR [place] DIAGNOSIS. Performed By: #### C MP, CMADM, BNP #### [facility] [address] [place] [address] Dr. Ko Durbin JAROD 184 ng/mL Critically high 9-82 [facility] Comment on above: Performed By: #### C MP, CMADM, BNP #### [facility] [address] [place] [address] Dr. Ko Durbin CBC AUTO DIFFon 10-10-2022 BASO # 0.0 103/ul Normal 0.0-0.1 [facility] Comment on above: Performed By: #### C BC #### [facility] [address] [place] [address] Dr. Ko Durbin Basophils/100 WBC (Bld) 0.2 % Normal 0.2-2.0 [facility] Comment on above: Performed By: #### C BC #### [facility] [address] [place] [address] Dr. Ko Durbin EO # 0.0 103/ul Normal 0.0-0.7 [facility] Comment on above: Performed By: #### C BC #### [facility] [address] [place] [address] Dr. Ko Durbin Eosinophils/100 WBC (Bld) 0.0 % Critically low 0.9-7.0 [facility] Comment on above: Performed By: #### C BC #### [facility] [address] [place] [address] Dr. Ko Durbin Erythrocyte distribution width (RBC) [Ratio] 13.7 % Normal 11.0-15.0 [facility] Comment on above: Performed By: #### C BC #### [facility] [address] [place] [address] Dr. Ko Durbin Hematocrit (Bld) [Volume fraction] 31.8 % Critically low 36.0-48.0 [facility] Comment on above: Performed By: #### C BC #### [facility] [address] [place] [address] Dr. Ko Durbin Hemoglobin (Bld) [Mass/Vol] 11.1 g/dL Critically low 12.0-16.0 [facility] Comment on above: Performed By: #### C BC #### [facility] [address] [place] [address] Dr. Ko Durbin IG # 0.11 10e3/ul Critically high 0.00-0.03 [facility] Comment on above: Performed By: #### C BC #### [facility] [address] [place] [address] Dr. Ko Durbin IG % 1.0 % Critically high 0.0-0.5 [facility] Comment on above: Performed By: #### C BC #### [facility] [address] [place] [address] Dr. Ko Durbin LYMPH # 1.8 103/ul Normal 1.2-3.8 [facility] Comment on above: Performed By: #### C BC #### [facility] [address] [place] [address] Dr. Ko Durbin Lymphocytes/100 WBC (Bld) 16.2 % Critically low 20.5-60.0 [facility] Comment on above: Performed By: #### C BC #### [facility] [address] [place] [address] Dr. Ko Durbin MANUAL DIFF REQ NO Normal [facility] Comment on above: Performed By: #### C BC #### [facility] [address] [place] [address] Dr. Ko Durbin MCH (RBC) [Entitic mass] 28.2 pg Normal 26.7-34.0 [facility] Comment on above: Performed By: #### C BC #### [facility] [address] [place] [address] Dr. Ko Durbin MCHC (RBC) [Mass/Vol] 34.9 g/dL Normal 29.9-35.2 [facility] Comment on above: Performed By: #### C BC #### [facility] [address] [place] [address] Dr. Ko Durbin MCV (RBC) [Entitic vol] 80.7 fL Critically low 81.0-99. 0 [facility] Comment on above: Performed By: #### C BC #### [facility] [address] [place] [address] Dr. Ko Durbin MONO # 0.7 103/ul Normal 0.3-0.8 [facility] Comment on above: Performed By: #### C BC #### [facility] [address] [place] [address] Dr. Ko Durbin Monocytes/100 WBC (Bld) 6.3 % Normal 1.7-12.0 [facility] Comment on above: Performed By: #### C BC #### [facility] [address] [place] [address] Dr. Ko Durbin NEUT # 8.4 103/ul Critically high 1.4-6.5 [facility] Comment on above: Performed By: #### C BC #### [facility] [address] [place] [address] Dr. Ko Durbin Neutrophils/100 WBC (Bld) 76.3 % Critically high 43.0-75.0 [facility] Comment on above: Performed By: #### C BC #### [facility] [address] [place] [address] Dr. Ko Durbin Platelet mean volume (Bld) [Entitic vol] 9.5 fL Normal 9.5-13.5 [facility] Comment on above: Performed By: #### C BC #### [facility] [address] [address] [address] Ko Durbin PLT 384 103/ul Normal 150-450 [facility] Comment on above: Performed By: #### C BC #### [facility] [id number] Ko Durbin RBC 3.94 106/ul Critically low 4.20-5.40 [facility] Comment on above: Performed By: #### C BC #### [facility] [address] [address] [address] Ko Durbin WBC 11.0 103/ul Normal 4.0-11.0 [facility] Comment on above: Performed By: #### C BC #### [facility] [address] [place] [address] Dr. Ko Durbin CULTURE URINEon 10-10-2022 CULTURE URINE Culture Observations : NO GROWTH. Normal [facility] Comment on above: Performed By: #### U RCX #### [facility] [address] [address] [address] Ko Durbin Covid-19 PCR ([facility])on 09-15 SARS-CoV-2 (COVID-19) RNA RADHA+probe Ql (Unsp spec) Not detected Normal NOT DETECTED [facility] Comment on above: Result Comment: When diagnostic [...] for this test is supported by the Application Development Team Lead of Health and Human Service's declaration that [...] used). Performed By: #### C VDTBH #### [facility] [address] [place] [address] Dr. Ko Durbin LACTATE/LACTIC ACIDon 2022 Lactate [Moles/Vol] 1.7 mmol/L Normal 0.4-1.9 [facility] Comment on above: Performed By: #### L ACT #### [facility] [address] [place] [address] Dr. Ko Durbin POINT OF CARE GLUCOSEon 09-15 Glucose [Mass/Vol] 139 mg/dL Critically high 74-106 [facility] Comment on above: Performed By: #### P OCGLUC #### [facility] [address] [place] [address] Dr. Ko Durbin Glucose [Mass/Vol] 99 mg/dL Normal 74-106 [facility] Comment on above: Performed By: #### L ACT #### [facility] [address] [place] [address] Dr. Ko Durbin PROF 14(COMP METB)on 023 Albumin [Mass/Vol] 3.9 g/dL Normal 3.4-5.0 [facility] Comment on above: Performed By: #### C MP, CMADM, BNP #### [facility] [address] [place] [address] Dr. Ko Durbin Albumin/Globulin [Mass ratio] 1.3 {ratio} Normal [facility] Comment on above: Performed By: #### C MP, CMADM, BNP #### [facility] [address] [place] [address] Dr. Ko Durbin ALP [Catalytic activity/Vol] 43 U/L Critically low 46-116 [facility] Comment on above: Performed By: #### C MP, CMADM, BNP #### [facility] [address] [place] [address] Dr. Ko Durbin ALT [Catalytic activity/Vol] 34 U/L Normal 14-59 [facility] Comment on above: Performed By: #### C MP, CMADM, BNP #### [facility] [address] [address] [address] Ko Durbin Anion gap [Moles/Vol] 16.2 mmol/L Normal Th [facility] Comment on above: Performed By: #### C MP, CMADM, BNP #### [facility] [address] [address] [address] Ko Durbin AST [Catalytic activity/Vol] 18 U/L Normal 15-37 [facility] Comment on above: Performed By: #### C MP, CMADM, BNP #### [facility] [address] [address] [address] Ko Durbin Bilirubin [Mass/Vol] 0.2 mg/dL Normal 0.2-1.0 [facility] Comment on above: Performed By: #### C MP, CMADM, BNP #### [facility] [address] [address] [address] Ko Durbin Calcium [Mass/Vol] 9.4 mg/dL Normal 8.5-10.1 [facility] Comment on above: Performed By: #### C MP, CMADM, BNP #### [facility] [address] [address] [address] Ko Durbin Chloride [Moles/Vol] 99 mmol/L Normal 98-107 [facility] Comment on above: Performed By: #### C MP, CMADM, BNP #### [facility] [address] [address] [address] Ko Durbin CO2 [Moles/Vol] 25.7 mmol/L Normal 21.0-32.0 [facility] Comment on above: Performed By: #### C MP, CMADM, BNP #### [facility] [address] [address] [address] Ko Durbin Creatinine [Mass/Vol] 1.10 mg/dL Critically high 0.55-1.02 [facility] Comment on above: Performed By: #### C MP, CMADM, BNP #### [facility] [address] [address] [address] Ko Durbin EGFR-AF BERMUDIAN >60 Normal >=60 [facility] Comment on above: Performed By: #### C MP CMADM, BNP #### [facility] [address] [address] [address] Ko Durbin EGFR-NON AF BERMUDIAN 54 mL/min/1.73m2 Critically low >=60 [facility] Comment on above: Performed By: #### C MP, CMADM, BNP #### [facility] [address] [place] [address] Dr. Ko Durbin Globulin (S) [Mass/Vol] 2.9 g/dL Normal [facility] Comment on above: Performed By: #### C MP CMADM, BNP #### [facility] [address] [place] [address] Dr. Ko Durbin Glucose [Mass/Vol] 97 mg/dL Normal 74-106 [facility] Comment on above: Performed By: #### C MP CMADM, BNP #### [facility] [address] [place] [address] Dr. Ko Durbin Potassium [Moles/Vol] 3.9 mmol/L Normal 3.5-5.1 [facility] Comment on above: Performed By: #### C MP CMADM, BNP #### [facility] [address] [place] [address] Dr. Ko Durbin Protein [Mass/Vol] 6.8 g/dL Normal 6.4-8.2 [facility] Comment on above: Performed By: #### C MP, CMADM, BNP #### [facility] [address] [place] [address] Dr. Ko Durbin Sodium [Moles/Vol] 137 mmol/L Normal 136-145 [facility] Comment on above: Performed By: #### C MP, CMADM, BNP #### [facility] [address] [place] [address] Dr. Ko Durbin Urea nitrogen [Mass/Vol] 16.0 mg/dL Normal 7.0-18.0 [facility] Comment on above: Performed By: #### C MP, CMADM, BNP #### [facility] [address] [place] [address] Dr. Ko Durbin Urea nitrogen/Creatinine [Mass ratio] 14.5 mg/mg Normal [facility] Comment on above: Performed By: #### C MP, CMADM, BNP #### [facility] [address] [place] [address] Dr. Ko Durbin UA RANDOM W/MICROSCOPICon BACTERIA NONE SEEN Normal NONE SEEN [facility] Comment on above: Performed By: #### L ACT #### [facility] [address] [place] [address] Dr. Ko Durbin Bilirubin Ql (U) Negative Normal NEGATIVE [facility] Comment on above: Performed By: #### L ACT #### [facility] [address] [place] [address] Dr. Ko Durbin CAST NONE SEEN Normal NONE SEEN [facility] Comment on above: Performed By: #### L ACT #### [facility] [address] [place] [address] Dr. Ko Durbin Clarity (U) CLEAR Normal CLEAR [facility] Comment on above: Performed By: #### L ACT #### [facility] [address] [place] [address] Dr. Ko Durbin Color (U) LT. YELLOW Normal YELLOW [facility] Comment on above: Performed By: #### L ACT #### [facility] [address] [place] [address] Dr. Ko Durbin Crystals LM Nom (Urine sed) NONE SEEN Normal NONE SEEN [facility] Comment on above: Performed By: #### L ACT #### [facility] [address] [place] [address] Dr. Ko Durbin Epithelial cells LM Ql (Urine sed) NONE SEEN Normal NONE SEEN /RARE [facility] Comment on above: Performed By: #### L ACT #### [facility] [address] [place] [address] Dr. Ko Durbin Glucose Ql (U) 500 mg/dl Abnormal NEGATIVE [facility] Comment on above: Performed By: #### L ACT #### [facility] [address] [place] [address] Dr. Ko Durbin Hemoglobin Ql (U) TRACE-INTACT Abnormal NEGATIVE [facility] Comment on above: Performed By: #### L ACT #### [facility] [address] [place] [address] Dr. Ko Durbin Ketones Ql (U) Negative Normal NEGATIVE [facility] Comment on above: Performed By: #### L ACT #### [facility] [address] [place] [address] Dr. Ko Durbin LEUKOCYTES Negative Normal NEGATIVE [facility] Comment on above: Performed By: #### L ACT #### [facility] [address] [place] [address] Dr. Ko Durbin MUCOUS NONE SEEN Normal NONE SEEN [facility] Comment on above: Performed By: #### L ACT #### [facility] [address] [place] [address] Dr. Ko Durbin Nitrite Ql (U) Negative Normal NEGATIVE [facility] Comment on above: Performed By: #### L ACT #### [facility] [address] [place] [address] Dr. Ko Durbin pH (U) 5.5 [pH] Normal 5-9 [facility] Comment on above: Performed By: #### L ACT #### [facility] [address] [place] [address] Dr. Ko Durbin RBC 0-2 Normal 0-2 [facility] Comment on above: Performed By: #### L ACT #### [facility] [address] [place] [address] Dr. Ko Durbin SPEC GRAVITY <=1.005 Abnormal 1.005-<=1.0 25 [facility] Comment on above: Performed By: #### L ACT #### [facility] [address] [place] [address] Dr. Ko Durbin UA PROTEIN Negative Normal NEGATIVE/ TRACE [facility] Comment on above: Performed By: #### L ACT #### [facility] [address] [place] [address] Dr. Ko Durbin Urobilinogen Qn (U) 0.2 {Rich'U}/dL Normal 0.2 - 1. 0 [facility] Comment on above: Performed By: #### L ACT #### [facility] [id number] Ko Durbin WBC NONE SEEN Normal NONE SEEN [facility] Comment on above: Performed By: #### L ACT #### [facility] [id number] Ko Durbin XR CHEST 2 Von [...] by: LIAT MARISCAL Date: 2022-10-10 17:23 Normal [facility] XR wrist RT min 3V*on 2022 XR wrist RT min 3V* [facility] [employer] Other XR wrist RT min 3V* [facility] [employer] Other XR wrist RT min 3V* [address] [place] [address] [employer] Other XR wrist RT min 3V* [place], [place] [id number] [place] [address] [employer] Other XR wrist RT min 3V* XRay Report [facility] [employer] Other XR wrist RT min 3V* Signed [employer] Other XR wrist RT min 3V* Patient: Kourtney Novak MR#: [id number] Meyers Chuck [employer] Other XR wrist RT min 3V* [id number] [employer] Other XR wrist RT min 3V* : 1975 Acct:[id number] [employer] Other XR wrist RT min 3V* Age/Sex: 46 / F ADM Date: 09/24/22 [employer] Other XR wrist RT min 3V* Loc: [facility]XD Room: Type : [facility] [employer] Other XR wrist RT min 3V* Attending Dr: Naz Gomes MD [employer] Other XR wrist RT min 3V* Copies to: Elyssa Gomes MD [employer] Other XR wrist RT min 3V* Ordering Provider: Elyssa Gomes MD [employer] Other XR wrist RT min 3V* Date of Service: 09/24/22 [employer] Other XR wrist RT min 3V* XR/XR wrist RT min 3V*: Osteochondrosis of lunate of right wrist [employer] Other XR wrist RT min 3V* RIGHT WRIST - 4 views [employer] Other XR wrist RT min 3V* CLINICAL HISTORY: Follow-up right wrist denervation and radial core decompression [employer] Other XR wrist RT min 3V* COMPARISON: None [employer] Other XR wrist RT min 3V* FINDINGS: [employer] Other XR wrist RT min 3V* No focal soft tissue abnormality. 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 Triquetral fracture is unchanged. Mild degenerative changes without bony erosion. [employer] Other XR wrist RT min 3V* XR/XR wrist RT min 3V* [employer] Other XR wrist RT min 3V* IMPRESSION: [facility] [employer] Other XR wrist RT min 3V* NO SIGNIFICANT DURBIN E IN WRIST FINDINGS. [employer] Other XR wrist RT min 3V* Impression dictated by: Rainer Martinez Jr., DEstefanyOEstefany09/24/2022 4:36 PM [employer] Other XR wrist RT min 3V* Dictation Location: [place] [address] [employer] Other XR wrist RT min 3V* Transcribed By: PWS 09/24/22 1636 [employer] Other XR wrist RT min 3V* Dictated By: Rainer Martinez Jr, DO 09/24/22 1634 [employer] Other XR wrist RT min 3V* Signed By: [employer] Other XR wrist RT min 3V* 09/24/22 1636 No rt [employer] Other Urine culture routineOrdered By: Sammie Gonzalez on 07-31-2022 Bacteria identified Cx Nom (U) 2 Days [facility] Automated erythrocytes count in urine sediment (number/area)Ordered By: Sammie Gonzalez on 07-29-2022 RBC Auto (Urine sed) [#/Area] 3-4 [HPF] 0-4 [facility] Automated leukocytes count i n urine sediment (number/area)Ordered By: Sammie Gonzalez on 07-29-2022 WBC Auto (Urine sed) [#/Area] None seen [HPF] 0-4 [facility] Bilirubin Test strip Ql (U)O rdered By: Sammie Gonzalez on 07-29-2022 Bilirubin Ql (U) Negative Negative [facility] Color Auto (U)Ordered By: Do erik Gonzalez on 07-29-2022 Color (U) Yellow Yellow [facility] Ketones Auto test strip (U) [Mass/Vol]Ordered By: Sammie Gonzalez on 07-29-2022 Ketones (U) [Mass/Vol] Negative Negative [facility] - UrinalysisOrder ed By: Sammie Gonzalez on 07-29-2022 Hyaline casts LM Ql (Urine sed) None seen [LPF] 0-8 [facility] Nitrite Test strip Ql (U)Ord ered By: Sammie Gonzalez on 07-29-2022 Nitrite Ql (U) Negative Negative [facility] Protein Auto test strip (U) [Mass/Vol]Ordered By: Sammie Gonzalez on 07-29-2022 Protein (U) [Mass/Vol] Negative [facility] Specific gravity Auto test s trip (U) [Rel density]Ordered By: Sammie Gonzalez on 07-29-2022 Specific gravity (U) [Rel density] 1.013 1.001-1.030 [facility] Squamous epithelial cells de tection in urine sediment by light microscopyOrdered By: Sammie Gonzalez on 07-29-2022 Epithelial cells.squamous LM Ql (Urine sed) None seen [HPF] 0-2 [facility] Urine bacteria detection by automated methodOrdered By: Sammie Gonzalez on 07-29-2022 Bacteria Auto Ql (U) None seen None Seen [facility] Urine clarity by refractomet ry automatedOrdered By: Sammie Gonzalez on 07-29-2022 Clarity Refractometry automated (U) Clear Clear [facility] Urine culture routineOrdered By: Sammie Gonzalez on 07-29-2022 Bacteria identified Cx Nom (U) 2 Days [facility] Urine glucose measurement by automated test strip (mass/volume)Ordered By: Sammie Gonzalez on 07-29-2022 Glucose Auto test strip (U) [Mass/Vol] >=1000 mg/dL Normal [facility] Urine hemoglobin detection b y automated test stripOrdered By: Sammie Gonzalez on 07-29-2022 Hemoglobin Auto test strip Ql (U) Trace Negative [facility] Urine leukocyte esterase det ection by automated test stripOrdered By: Sammie Gonzalez on 07-29-2022 Leukocyte esterase Auto test strip Ql (U) Negative Negative [facility] Urobilinogen Auto test strip (U) [Mass/Vol]Ordered By: Sammie Gonzalez on 07-29-2022 Urobilinogen (U) [Mass/Vol] Normal mg/dL Normal [facility] pH Auto test strip (U)Ordere d By: Sammie Gonzalez on 07-29-2022 pH (U) 6.0 [pH] 5.0-9.0 [facility] Albumin [Mass/volume] in Ser um or PlasmaOrdered By: Sammie Gonzalez on 05-01-2022 Albumin [Mass/Vol] 4.0 g/dL 3.2-5.5 [facility] Basophils Auto (Bld) [#/Vol] Ordered By: Sammie Gonzalez on 05-01-2022 Basophils (Bld) [#/Vol] 0.0 10*3/uL 0.0-0.2 [facility] Basophils/100 WBC Auto (Bld) Ordered By: Sammie Gonzalez on 05-01-2022 Basophils/100 WBC (Bld) 0.8 % . [facility] Blood hemoglobin measurement (mass/volume)Ordered By: Sammie Gonzalez on 05-01-2022 Hemoglobin (Bld) [Mass/Vol] 12.4 g/dL 11.8-15.4 [facility] Blood leukocytes automated c ount (number/volume)Ordered By: Sammie Gonzalez on 05-01-2022 WBC (Bld) [#/Vol] 6.0 10*3/uL 4.5-11.0 [facility] Cholesterol [Mass/volume] in Serum or PlasmaOrdered By: Sammie Gonzalez on 05-01-2022 Cholesterol [Mass/Vol] 189 mg/dL 140-200 [facility] Comment on above: Chol less than 200 m g/dl low risk Chol 201-239 mg/dl borderline risk Chol 240 mg/dl and greater high risk Chol less than 200 m g/dl low riskChol 201-239 mg/dl borderline riskChol 240 mg/dl and greater high risk Cholesterol in LDL Calc [Mas s/Vol]Ordered By: Sammie Gonzalez on 05-01-2022 Cholesterol in LDL [Mass/Vol] 92 mg/dL 0-100 [facility] Comment on above: LDL ATP III CLASSIFI [...] 05-01-2022 Cholesterol in VLDL [Mass/Vol] 19 mg/dL [facility] Creatinine and Glomerular fi ltration rate.predicted panel (S/P/Bld)Ordered By: Sammie Gonzalez on 05-01-2022 Creatinine [Mass/Vol] 1.06 mg/dL 0.44-1.03 [facility] Eosinophils Auto (Bld) [#/Vo l]Ordered By: Sammie Gonzalez on 05-01-2022 Eosinophils (Bld) [#/Vol] 0.1 10*3/uL 0.0-0.45 [facility] Eosinophils/100 WBC Auto (Bl d)Ordered By: Sammei Gonzalez on 05-01-2022 Eosinophils/100 WBC (Bld) 1.2 % . [facility] Erythrocyte distribution wid th Auto (RBC) [Ratio]Ordered By: Sammie Gonzalez on 05-01-2022 Erythrocyte distribution width (RBC) [Ratio] 13.7 % 11.9-15.3 [facility] Estimated glomerular filtrat ion rate (GFR) non- AmericanOrdered By: Sammie Gonzalez on 05-01-2022 GFR/1.73 sq M.predicted among non-blacks MDRD (S/P/Bld) [Vol rate/Area] 56 mL/Min [facility] Globulin Calc (S) [Mass/Vol] Ordered By: Sammie Gonzalez on 05-01-2022 Globulin (S) [Mass/Vol] 2.3 g/dL [facility] Glucose mean value [Mass/vol ume] in Blood Estimated from glycated hemoglobinOrdered By: Sammie Gonzalez on 05-01-2022 Average glucose Estimated from glycated hemoglobin (Bld) [Mass/Vol] 117 mg/dL [facility] Hematocrit Auto (Bld) [Volum e fraction]Ordered By: Sammie Gonzalez on 05-01-2022 Hematocrit (Bld) [Volume fraction] 38.4 % 34.0-46.4 [facility] Hemoglobin A1c percentageOrd ered By: Sammie Gonzalez on 05-01-2022 HbA1c (Bld) [Mass fraction] 5.7 % 4.3-5.6 [facility] Comment on above: Increased risk for d iabetes: 5.7 - 6.4 diabetes: >6.4 glycemic control for adults with diabetes: <7.0 Increased risk for d iabetes: 5.7 - 6.4diabetes: >6.4glycemic control for adults with diabetes: <7.0 Iron [Mass/volume] in Serum or PlasmaOrdered By: Sammie Gonzalez on 05-01-2022 Iron [Mass/Vol] 48 ug/dL 40-150 [facility] Laboratory - Chemistry and C hemistry - challengeOrdered By: Sammie Gonzalez on 05-01-2022 Natriuretic peptide B (Bld) [Mass/Vol] 7.0 pg/mL 5-100 [facility] Laboratory - Hematology and Cell countsOrdered By: Sammie Gonzalez on 05-01-2022 Nucleated RBC/100 WBC (Bld) [Ratio] 0.0 % 0-0.5 [facility] Lymphocytes Auto (Bld) [#/Vo l]Ordered By: Sammie Gonzalez on 05-01-2022 Lymphocytes (Bld) [#/Vol] 1.4 10*3/uL 1.00-4.8 [facility] Lymphocytes/100 WBC Auto (Bl d)Ordered By: Sammie Gonzalez on 05-01-2022 Lymphocytes/100 WBC (Bld) 23.0 % . [facility] MCH Auto (RBC) [Entitic mass ]Ordered By: Sammie Gonzalez on 05-01-2022 MCH (RBC) [Entitic mass] 28.9 pg 24.7-34.3 [facility] MCHC Auto (RBC) [Mass/Vol]Or dered By: Sammie Gonzalez on 05-01-2022 MCHC (RBC) [Mass/Vol] 32.4 g/dL 32.0-35.0 [facility] MCV Auto (RBC) [Entitic vol] Ordered By: Sammie Gonzalez on 05-01-2022 MCV (RBC) [Entitic vol] 89.1 fL 80-100 [facility] Monocytes Auto (Bld) [#/Vol] Ordered By: Sammie Gonzalez on 05-01-2022 Monocytes (Bld) [#/Vol] 0.6 10*3/uL 0.0-0.8 [facility] Monocytes/100 WBC Auto (Bld) Ordered By: Sammie Gonzalez on 05-01-2022 Monocytes/100 WBC (Bld) 9.1 % . [facility] Neutrophils Auto (Bld) [#/Vo l]Ordered By: Sammie Gonzalez on 05-01-2022 Neutrophils (Bld) [#/Vol] 4.0 10*3/uL 1.8-7.7 [facility] Neutrophils/100 WBC Auto (Bl d)Ordered By: Sammie Gonzalez on 05-01-2022 Neutrophils/100 WBC (Bld) 65.9 % . [facility] No Panel InformationOrdered By: Sammie Gonzalez on 05-01-2022 Estimated GFR () > 60 mL/Min [facility] Comment on above: GFR estimated refere nce range: According to KDOQI guidelines, <60 ml/min/1.73m2 is sufficient to diagnose a patient with chronic kidney disease. Pharmacy Creatinine Clearance (Chem N/A [facility] Platelet mean volume Auto (B ld) [Entitic vol]Ordered By: Sammie Gonzalez on 05-01-2022 Platelet mean volume (Bld) [Entitic vol] 8.5 fL 6.3-10.7 [facility] Platelets Auto (Bld) [#/Vol] Ordered By: Sammie Gonzalez on 05-01-2022 Platelets (Bld) [#/Vol] 385 10*3/uL 150-450 [facility] Protein [Mass/volume] in Ser um or PlasmaOrdered By: Sammie Gonzalez on 05-01-2022 Protein [Mass/Vol] 6.3 g/dL 6.1-7.9 [facility] RBC Auto (Bld) [#/Vol]Ordere d By: Sammie Gonzalez on 05-01-2022 RBC (Bld) [#/Vol] 4.31 10*6/uL 3.60-5.00 [facility] Serum or plasma alanine bass otransferase measurement without P-5'-P (enzymatic activiOrdered By: Sammie Gonzalez on 05-01-2022 ALT No additional P-5'-P [Catalytic activity/Vol] 22 U/L 10-60 [facility] Serum or plasma albumin/glob ulin mass ratioOrdered By: Sammie Gonzalez on 05-01-2022 Albumin/Globulin [Mass ratio] 1.7 {ratio} [facility] Serum or plasma alkaline leela sphatase measurement (enzymatic activity/volume)Ordered By: Sammie Gonzalez on 05-01-2022 ALP [Catalytic activity/Vol] 52 U/L 32-92 [facility] Serum or plasma aspartate am inotransferase measurement (enzymatic activity/volume)Ordered By: Sammie Gonzalez on 05-01-2022 AST [Catalytic activity/Vol] 17 U/L 10-42 [facility] Serum or plasma calcium kiara urement (mass/volume)Ordered By: Sammie Gonzalez on 05-01-2022 Calcium [Mass/Vol] 9.5 mg/dL 8.2-10.2 [facility] Serum or plasma chloride aby surement (moles/volume)Ordered By: Sammie Gonzalez on 05-01-2022 Chloride [Moles/Vol] 100 mmol/L 95-[address] [facility] Serum or plasma glucose kiara urement (mass/volume)Ordered By: Sammie Gonzalez on 05-01-2022 Glucose [Mass/Vol] 96 mg/dL 70-100 [facility] Comment on above: ADA recommended refe rence [...] Cholesterol in HDL [Mass/Vol] 78 mg/dL 35-85 [facility] Comment on above: HDL CHOL ATP-III CLA SSIFICATION Cardiovascular Risk HDL > or equal to 60 mg/dL LOW HDL < 40 mg/dL HIGH HDL CHOL ATP-III CLA SSIFICATION Cardiovascular RiskHDL > or equal to 60 mg/dL LOWHDL < 40 mg/dL HIGH Serum or plasma potassium me asurement (moles/volume)Ordered By: Sammie Gonzalez on 05-01-2022 Potassium [Moles/Vol] 4.2 mmol/L 3.5-5.1 [facility] Serum or plasma sodium measu rement (moles/volume)Ordered By: Sammie Gonzalez on 05-01-2022 Sodium [Moles/Vol] 134 mmol/L 136-146 [facility] Serum or plasma thyroxine (T 4) measurement (mass/volume)Ordered By: Sammie Gonzalez on 05-01-2022 T4 [Mass/Vol] 9.20 ug/dL 5.39-11.82 [facility] Serum or plasma total biliru bin measurement (mass/volume)Ordered By: Sammie Gonzalez on 05-01-2022 Bilirubin [Mass/Vol] 0.4 mg/dL 0.3-1.[address] [facility] Serum or plasma total carbon dioxide measurement (moles/volume)Ordered By: Sammie Gonzalez on 05-01-2022 CO2 [Moles/Vol] 24.2 mmol/L 22.0-30.0 [facility] Serum or plasma total choles terol/high density lipoprotein (HDL) cholesterol mass ratOrdered By: Sammie Gonzalez on 05-01-2022 Cholesterol.total/Tali sterol in HDL [Mass ratio] 2.4 {ratio} <5.0 [facility] Serum or plasma urea nitroge n measurement (mass/volume)Ordered By: Sammie Gonzalez on 05-01-2022 Urea nitrogen [Mass/Vol] 14 mg/dL 9-23 [facility] TSH DL <= 0.005 mIU/L QnOrde red By: Sammie Gonzalez on 05-01-2022 TSH Qn 3.07 m[IU]/L 0.45-5.33 [facility] Triglyceride [Mass/volume] i n Serum or PlasmaOrdered By: Sammie Gonzalez on 05-01-2022 Triglyceride [Mass/Vol] 97 mg/dL 35-149 [facility] Comment on above: TRIG ATP III CLASSIF [...] Gonzalez on 05-01-2022 T3RU 25 % 24-39 [facility] Comment on above: Performed at: [employer] [address] [id number] Video Production Specialist: Maxim Daniel PhD, Phone: [phone] Performed at: [employer] [place] [id number] Director: Maxim Daniel PhD, Phone: [phone] XR wrist RT 2Von 01-24-2022 XR wrist RT 2V [facility] [employer] Other XR wrist RT 2V [facility] [employer] Other XR wrist RT 2V [address] [place] [address] [employer] Other [place]R [place] 2[place] [address] No rt [employer] Other XR wrist RT 2V XRay Report [employer] Other XR wrist RT 2V Signed [employer] Other XR wrist RT 2V Patient: Kourtney Novak MR#: [id number] [employer] Other XR wrist RT 2V [id number] [employer] Other XR wrist RT 2V : 1975 Acct:[id number] [employer] Other XR wrist RT 2V Age/Sex: 46 / F ADM Date: 01/24/22 [employer] Other XR wrist RT 2V Loc: [facility] Room: Type : [facility] [employer] Other XR wrist RT 2V Attending Dr: Naz Gomes MD [employer] Other XR wrist RT 2V Ordering Provider: Elyssa Gomes MD [employer] Other XR wrist RT 2V Date of Service: 01/24/22 [employer] Other XR wrist RT 2V XR/XR wrist RT 2V: Osteochondrosis of lunate of right wrist [employer] Other XR wrist RT 2V Copies to: Elyssa Gomes MD [employer] Other XR wrist RT 2V Right wrist 01/24/2022. [employer] Other XR wrist RT 2V CLINICAL DATA: Osteochondrosis of lunate of right wrist. [employer] Other XR wrist RT 2V FINDINGS: 2 views of the right wrist were obtained and are compared with a prior study 12/24/2021. [employer] Other XR wrist RT 2V No acute fracture or dislocation is identified. The lunate again appears sclerotic. This finding [employer] Other XR wrist RT 2V has not significantl y changed. No collapse is seen. No soft tissue swelling is visualized. [employer] Other XR wrist RT 2V XR/XR wrist RT 2V [employer] Other XR wrist RT 2V IMPRESSION: Scleroti c lunate, not significantly changed. [employer] Other XR wrist RT 2V Impression dictated by: Brody Marks Jr., M.D.01/24/2022 3:00 PM [employer] Other XR wrist RT 2V Dictation Location: [facility] [employer] Other XR wrist RT 2V Transcribed By: PWS 01/24/22 1500 [employer] Other XR wrist RT 2V Dictated By: Brody Marks Jr, MD 01/24/22 1454 [employer] Other XR wrist RT 2V Signed By: [employer] Other XR wrist RT 2V 01/24/22 1500 [employer] Other XR wrist RT min 3V*on 2021 XR wrist RT min 3V* [facility] [employer] Other XR wrist RT min 3V* [facility] [employer] Other XR wrist RT min 3V* [address] [place] [address] [employer] Other XR wrist RT min 3V* [place] [address] [employer] Other XR wrist RT min 3V* XRay Report Nort [employer] Other XR wrist RT min 3V* Signed [employer] Other XR wrist RT min 3V* Patient: Kourtney Novak MR#: [id number] [employer] Other XR wrist RT min 3V* [id number] [employer] Other XR wrist RT min 3V* : 1975 Acct:[id number] [employer] Other XR wrist RT min 3V* Age/Sex: 46 / F ADM Date: 11/20/21 [employer] Other XR wrist RT min 3V* Loc: [facility] Room: Type : [facility] [employer] Other XR wrist RT min 3V* Attending Dr: Naz Gomes MD [employer] Other XR wrist RT min 3V* Ordering Provider: Elyssa Gomes MD [employer] Other XR wrist RT min 3V* Date of Service: 11/20/21 [employer] Other XR wrist RT min 3V* XR/XR wrist RT min 3V*: Other specified postprocedural [employer] Other XR wrist RT min 3V* states;Osteochondros i s of [facility] [employer] Other XR wrist RT min 3V* Copies to: Elyssa Gomes MD [employer] Other XR wrist RT min 3V* 4 viewsRIGHT wrist plain film [employer] Other XR wrist RT min 3V* COMPARISON:None [employer] Other XR wrist RT min 3V* HISTORY: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 No collapse identified. Calculi metacarpal bones [employer] Other XR wrist RT min 3V* identified. No soft tissue abnormality seen. [employer] Other XR wrist RT min 3V* XR/XR wrist RT min 3V* [employer] Other XR wrist RT min 3V* IMPRESSION:Sclerotic changes of the lunate. Adequate bony alignment. No collapse. [employer] Other XR wrist RT min 3V* Impression dictated by: George Gray M.D.11/20/2021 3:59 PM [employer] Other XR wrist RT min 3V* Dictation Location: [facility]- [employer] Other XR wrist RT min 3V* Transcribed By: PWS 11/20/21 1559 [employer] Other XR wrist RT min 3V* Dictated By: George Gray DO 11/20/21 1557 [employer] Other XR wrist RT min 3V* Signed By: [employer] Other XR wrist RT min 3V* 11/20/21 1559 No rt [employer] Other XR wrist RT min 3V*on 2020 XR wrist RT min 3V* [facility] [employer] Other XR wrist RT min 3V* [facility] [employer] Other XR wrist RT min 3V* [address] [place] [address] [employer] Other XR wrist RT min 3V* [place] [address] [employer] Other XR wrist RT min 3V* XRay Report Nort [employer] Other XR wrist RT min 3V* Signed [employer] Other XR wrist RT min 3V* Patient: Kourtney Novak MR#: [id number] [employer] Other XR wrist RT min 3V* [id number] [employer] Other XR wrist RT min 3V* : 1975 Acct:[id number] [employer] Other XR wrist RT min 3V* Age/Sex: 45 / F ADM Date: 08/28/21 [employer] Other XR wrist RT min 3V* Loc: [facility] Room: Type : [facility] [employer] Other XR wrist RT min 3V* Attending Dr: Naz Gomes MD [employer] Other XR wrist RT min 3V* Ordering Provider: Elyssa Gomes MD [employer] Other XR wrist RT min 3V* Date of Service: 08/28/21 [employer] Other XR wrist RT min 3V* XR/XR wrist RT min 3V*: M92.211 [employer] Other XR wrist RT min 3V* Copies to: Elyssa Gomes MD [employer] Other XR wrist RT min 3V* RIGHT WRIST - 4 views [employer] Other XR wrist RT min 3V* CLINICAL DATA: Right wrist pain and decreased range of motion. No injury. [employer] Other XR wrist RT min 3V* COMPARISON: 11/15/2020 and MRI 11/15/2020 [employer] Other XR wrist RT min 3V* AP, lateral, oblique and ulnar deviation views were obtained. There is no acute fracture or [employer] Other XR wrist RT min 3V* dislocation. Minor sclerosis is again seen at the lunate where there is also subchondral cystic [employer] Other XR wrist RT min 3V* change medially. Thi s is similar to the prior. There is no developing joint space narrowing or [employer] Other XR wrist RT min 3V* hypertrophy. No prominent soft tissue swelling is noted. [employer] Other XR wrist RT min 3V* XR/XR wrist RT min 3V* [employer] Other XR wrist RT min 3V* IMPRESSION: [employer] Other XR wrist RT min 3V* BONY CHANGES AT THE LUNATE, SIMILAR TO THE COMPARISON. [employer] Other XR wrist RT min 3V* NO ACUTE FINDINGS. [employer] Other XR wrist RT min 3V* Impression dictated by: Tirxie Irizarry M.D.08/28/2021 4:42 PM [employer] Other XR wrist RT min 3V* Dictation Location: [facility]--11 [employer] Other XR wrist RT min 3V* Transcribed By: GRACIE 08/28/21 1642 [employer] Other XR wrist RT min 3V* Dictated By: Trixie Irizarry MD 08/28/21 1639 [employer] Other XR wrist RT min 3V* Signed By: [employer] Other XR wrist RT min 3V* 08/28/21 1642 No [employer] Other XR FOOT 3V AP/LAT/OBL BILon 03-04-2021 [...] No other significant abnormality. 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[facility] Transcribe Date/Time: Mar 04 2021 2:57P Dictated by : TOBI HERRMANN MD This examination was interpreted and the report reviewed and electronically signed by: TOBI HERRMANN MD on Mar 04 2021 2:59PM EST [id number] Normal [facility] Vital Signs Date Time Vital Sign Value Performing Clinician Facility 05-30-2024 09:38-0400 Body mass index (BMI) [Ratio] 40.61 kg/m2 Zeinab Wood MD Work Phone: [facility] 05-30-2024 09:38-0400 Body weight 109 kg Zeinab Wood MD Work Phone: [facility] 05-30-2024 09:38-0400 Diastolic blood pressure 72 mm[Hg] Zeinab Wood MD Work Phone: [facility] 05-30-2024 09:38-0400 Heart rate 87 /min Zeinab Wood MD Work Phone: [facility] 05-30-2024 09:38-0400 Respiratory rate 18 /min Zeinab Wood MD Work Phone: [facility] 05-30-2024 09:38-0400 Systolic blood pressure 109 mm[Hg] Zeinab Wood MD Work Phone: [facility] 06-30-2023 10:52-0400 Body height 164 cm Erik Pineda MD Work Phone: [facility] 06-30-2023 10:52-0400 Body temperature 98.71 [degF] Erik Pineda MD Work Phone: [facility] 06-30-2023 10:52-0400 Body weight 101.88 kg Erik Pineda MD Work Phone: [facility] 06-30-2023 10:52-0400 Diastolic blood pressure 58 mm[Hg] Erik Pineda MD Work Phone: [facility] 06-30-2023 10:52-0400 Heart rate 103 /min Erik Pineda MD Work Phone: [facility] 06-30-2023 10:52-0400 Respiratory rate 18 /min Erik Pineda MD Work Phone: [facility] 06-30-2023 10:52-0400 SaO2% (BldA) [Mass fraction] 97 % Erik Pineda MD Work Phone: [facility] 06-30-2023 10:52-0400 Systolic blood pressure 117 mm[Hg] Erik Pineda MD Work Phone: [facility] 05-06-2023 07:10-0400 Body height 165.1 cm MD Sammie Gonzalez Work Phone: [facility] 05-06-2023 07:10-0400 Body weight 102.05 kg MD Sammie Gonzalez Work Phone: [facility] 03-31-2023 09:30-0400 Body height 165.1 cm Russell Shields Other [employer] Other 03-31-2023 09:30-0400 Body mass index (BMI) [Ratio] 36.94 kg/m2 Russell Shields Other [employer] Other 03-31-2023 09:30-0400 Body weight 100.7 kg Russell Shields Other [employer] Other 03-31-2023 09:30-0400 Diastolic blood pressure 68 mm[Hg] Russell Shields Other [employer] Other 03-31-2023 09:30-0400 Systolic blood pressure 109 mm[Hg] Russell Shields Other [employer] Other 09-29-2022 15:28-0500 Body weight 114.08 kg Zeinab Wood MD Work Phone: [facility] 09-29-2022 15:28-0500 Diastolic blood pressure 56 mm[Hg] Zeinab Wood MD Work Phone: [facility] 09-29-2022 15:28-0500 Heart rate 99 /min Zeinab Wood MD Work Phone: [facility] 09-29-2022 15:28-0500 Systolic blood pressure 115 mm[Hg] Zeinab Wood MD Work Phone: [facility] 07-17-2022 15:45-0400 Body height 165.1 cm Beti Bowles Other [employer] Other 03-31-2022 14:00-0400 Body height 165.1 cm Beti Bowles Other [employer] Other 03-31-2022 14:00-0400 Body mass index (BMI) [Ratio] 39.6 kg/m2 Beti [facility] Other [employer] Other 03-31-2022 14:00-0400 Body weight 107.96 kg Beti [facility] Other [employer] Other 01-27-2022 14:15-0400 Body height 165.1 cm Beti [facility] Other [employer] Other 01-27-2022 14:15-0400 Body mass index (BMI) [Ratio] 39.93 kg/m2 Beti [facility] Other [employer] Other 01-27-2022 14:15-0400 Body weight 108.86 kg Beti [facility] Other [employer] Other 01-20-2022 11:03-0400 Body height 165.1 cm Zeinab Wood MD Work Phone: [facility] 01-20-2022 11:03-0400 Body weight 104.06 kg Zeinab Wood MD Work Phone: [facility] 01-20-2022 11:03-0400 Diastolic blood pressure 67 mm[Hg] Zeinab Wood MD Work Phone: [facility] 01-20-2022 11:03-0400 Heart rate 108 /min Zeinab Wood MD Work Phone: [facility] 01-20-2022 11:03-0400 Systolic blood pressure 113 mm[Hg] Zeinab Wood MD Work Phone: [facility] 11-20-2021 16:15-0500 Body height 165.1 cm Elyssa Gomes Other [employer] Other 11-20-2021 16:15-0500 Body mass index (BMI) [Ratio] 39.93 kg/m2 Elyssa Calvey Other [employer] Other 11-20-2021 16:15-0500 Body weight 108.86 kg Elyssa Calvey Other [employer] Other 10-08-2021 15:15-0500 Body height 165.1 cm Elyssa Calvey Other [employer] Other 10-08-2021 15:15-0500 Body mass index (BMI) [Ratio] 39.43 kg/m2 Elyssa Calvey Other [employer] Other 10-08-2021 15:15-0500 Body weight 107.5 kg Elyssa Calvey Other [employer] Other 08-28-2021 16:15-0500 Body height 165.1 cm Elyssa Calvey Other [employer] Other 08-28-2021 16:15-0500 Body mass index (BMI) [Ratio] 38.77 kg/m2 Elyssa Calvey Other [employer] Other 08-28-2021 16:15-0500 Body weight 105.69 kg Elyssa Calvmary Other [employer] Other Encounters Encounter Date Encounter Type Care Provider Facility Start: 06-22-2024 End: 06-22-2024 Patient encounter procedure MD Sammie Gonzalez Work Phone: [facility] Start: 06-22-2024 End: 06-22-2024 ambulatory MD Sammie Gonzalez Work Phone: [facility] Work Phone: Start: 06-21-2024 End: 06-21-2024 ambulatory MD Sammie Gonzalez Work Phone: [facility] Work Phone: Start: 06-21-2024 End: 06-21-2024 Patient encounter procedure MD Sammie Gonzalez Work Phone: [facility] Work Phone: Start: 06-20-2024 End: 06-20-2024 ambulatory Ridge Hollingsworth MD Facility:[facility] Start: 05-30-2024 End: 05-30-2024 ambulatory SAMMIE GONZALEZ Facility:[facility] Start: 05-30-2024 End: 05-30-2024 Patient encounter procedure Zeinab Wood MD Work Phone: Rheumatology Comment on above: Inflammatory arthrit is (Primary Dx); Fibromyalgia; Medication monitoring encounter Start: 05-25-2024 End: 05-26-2024 Refill Rachele Fenton HOME CARE ADMINISTRATOR.HOSPITAL RECEIVING CLERK Work Phone: Neurology [facility] Comment on above: Refill Request Start: 05-12-2024 End: 05-12-2024 Patient encounter procedure MD Sammie Gonzalez Work Phone: [facility]-Lab [facility] Start: 05-12-2024 End: 05-12-2024 ambulatory MD Sammie Gonzalez Work Phone: [facility] Work Phone: Start: 05-09-2024 End: 05-09-2024 ambulatory Ridge Hollingsworth MD Facility:[facility] Start: 04-25-2024 End: 04-25-2024 ambulatory Ridge Hollingsworth MD Facility:[facility] Start: 03-25-2024 Refill Zeinab Wood MD Work Phone: Rheumatology Comment on above: Refill Request Start: 03-21-2024 ambulatory Mohammamacrina Mcknightda n HOME CARE ADMINISTRATOR.HOSPITAL RECEIVING CLERK Work Phone: Neurology [facility] Comment on above: Robaxin Start: 03-18-2024 ambulatory Rachele salazar HOME CARE ADMINISTRATOR.HOSPITAL RECEIVING CLERK Work Phone: Neurology Headache [facility] Comment on above: Insurance Start: 03-08-2024 Telephone encounter Erik martinez MD Work Phone: [facility] Comment on above: epidural steroid inj ection Start: 03-07-2024 End: 03-07-2024 ambulatory Ridge Hollingsworth MD Facility:[facility] Start: 03-04-2024 End: 03-04-2024 ambulatory MD Sammie Gonzalez Work Phone: [facility] Work Phone: Start: 03-04-2024 End: 03-04-2024 Patient encounter procedure MD Sammie Gonzalez Work Phone: [facility] Work Phone: Start: 02-15-2024 End: 02-15-2024 Patient encounter procedure MD Sammie Gonzalez Work Phone: [facility] [place] Work Phone: Start: 02-15-2024 End: 02-15-2024 ambulatory MD Sammie Gonzalez Work Phone: [facility] Work Phone: Start: 02-10-2024 Telephone encounter Rachele acevedo HOME CARE ADMINISTRATOR.HOSPITAL RECEIVING CLERK Work Phone: Neurology Comment on above: Insurance Authorizat ion; Robaxin [place] - Medicare / [employer]. Start: 02-09-2024 End: 02-09-2024 Patient encounter procedure MD Sammie Gonzalez Work Phone: [facility] [address] Work Phone: Start: 02-09-2024 End: 02-09-2024 ambulatory MD Sammie Gonzalez Work Phone: [facility] Work Phone: Start: 02-05-2024 End: 02-05-2024 ambulatory Rachele Fenton HOME CARE ADMINISTRATOR.HOSPITAL RECEIVING CLERK Work Phone: Neurology [facility] Comment on above: Meningioma (HCC) (Pr imary Dx); Chronic daily headache Start: 02-05-2024 End: 02-05-2024 Telemedicine consultation with patient Rachele Fenton HOME CARE ADMINISTRATOR.HOSPITAL RECEIVING CLERK Work Phone: Neurology [facility] Start: 02-02-2024 End: 02-02-2024 ambulatory SAMMIE GONZALEZ [facility] Comment on above: Intracranial meningi sera (HCC) (Primary Dx) Start: 02-02-2024 End: 02-02-2024 Telemedicine consultation with patient Fellow Appointments Work Phone: [facility] [place] Start: 02-02-2024 Telephone encounter Mario Alberto Phillips RN [facility] [place] Comment on above: Appointment Start: 02-01-2024 End: 02-01-2024 ambulatory YOLA CARABALLO Not Available Start: 01-30-2024 Refill Fahad Luong MD Work Phone: [facility] Comment on above: Refill Request Start: 01-29-2024 ambulatory ERIK PINEDA [facility] y:[facility] Start: 01-29-2024 End: 01-29-2024 Subsequent hospital visit by physician [facility] Work Phone: [facility] Comment on above: 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 eninges (HCC) [D32.9] Start: 01-27-2024 Refill Zeinab Wood MD Work Phone: Rheumatology Comment on above: Refill Request Start: 01-26-2024 End: 01-26-2024 Patient encounter procedure MD Sammie Gonzalez Work Phone: [facility] Work Phone: Start: 01-19-2024 Telephone encounter Mario Alberto Phillips RN [facility] [place] Comment on above: Schedule Surgery ([place] rgery Planning ) Start: 01-08-2024 End: 01-08-2024 Patient encounter procedure MD Sammie Gonzalez Work Phone: [facility] Start: 01-08-2024 End: 01-08-2024 ambulatory MD Sammie Gonzalez Work Phone: [facility] Work Phone: Start: 01-05-2024 Telephone encounter Mario Alberto Phillips RN [facility] Comment on above: Schedule Surgery Start: 01-04-2024 Telephone encounter Zeinab kenyon MD Work Phone: Rheumatology Comment on above: Lab Orders/FAX Start: 12-20-2023 End: 12-20-2023 ambulatory WANDY PHILLIPS Not Available Start: 11-29-2023 Refill Zeinab Wood MD Work Phone: Rheumatology Comment on above: Refill Request Start: 11-25-2023 End: 11-25-2023 Patient encounter procedure MD Sammie Gonzalez Work Phone: [facility] Work Phone: Start: 11-12-2023 Refill Zeinab Wood MD Work Phone: Rheumatology Comment on above: Refill Request Start: 11-11-2023 Telephone encounter Mario Alberto Phillips RN [facility] Comment on above: Care Coordination (f ollow up) Start: 11-11-2023 End: 11-11-2023 Patient encounter procedure MD Sammie Gonzalez Work Phone: [facility] Start: 11-11-2023 End: 11-11-2023 ambulatory Sammie Gonzalez Facility:[facility] Start: 11-10-2023 Refill Zeinab Wood MD Work Phone: Rheumatology Comment on above: Refill Request Start: 11-09-2023 Refill Zeinab Wood MD Work Phone: Rheumatology Comment on above: Refill Request Start: 09-28-2023 End: 09-28-2023 ambulatory ZEINAB WOOD Facility:[facility] Start: 07-05-2023 Admission to [facility] Erik Pineda MD Work Phone: [facility] [place] Comment on above: Surgery Start: 07-05-2023 ambulatory Erik castañeda MD Work Phone: [facility] Start: 07-02-2023 Telephone encounter Erik martinez MD Work Phone: [facility] Comment on above: Patient Update (Disc uss Surgery March 2024) Start: 06-30-2023 End: 06-30-2023 ambulatory MONTSE LOU Facility:[facility] Start: 06-30-2023 End: 06-30-2023 Patient encounter procedure Erik Pineda MD Work Phone: [facility] Comment on above: Intracranial meningi sera (HCC) (Primary Dx) Start: 06-26-2023 End: 06-26-2023 ambulatory MONTSE LOU Facility:[facility] Start: 06-26-2023 End: 06-26-2023 Office outpatient new 45 minutes Fahad Luong MD Work Phone: Neurology Headache [facility] Comment on above: Medication overuse h eadache (Primary Dx); Brain mass; Meningioma (HCC); Chronic daily headache Start: 06-01-2023 End: 06-01-2023 ambulatory MONTSE LOU Facility:[facility] Start: 05-22-2023 End: 05-22-2023 ambulatory MD Sammie Gonzalez Work Phone: [facility] Work Phone: Start: 05-22-2023 End: 05-22-2023 Patient encounter procedure MD Sammie Gonzalez Work Phone: [facility] Start: 05-13-2023 Telephone encounter Moira thayer APRN.HOSPITAL RECEIVING CLERK Work Phone: [facility] Comment on above: TRIAGE Start: 05-06-2023 End: 05-06-2023 ambulatory MD Sammie Gonzalez Work Phone: [facility] Work Phone: Start: 05-06-2023 End: 05-06-2023 Patient encounter procedure MD Sammie Gonzalez Work Phone: [facility] [place] Work Phone: Start: 04-29-2023 End: 04-29-2023 ambulatory MD Sammie Gonzalez Work Phone: [facility] Work Phone: Start: 04-29-2023 End: 04-29-2023 Patient encounter procedure MD Sammie Gonzalez Work Phone: [facility] Work Phone: Start: 04-15-2023 End: 04-15-2023 ambulatory MD Sammie Gonzalez Work Phone: [facility] Work Phone: Start: 04-15-2023 End: 04-15-2023 Patient encounter procedure MD Sammie Gonzalez Work Phone: [facility] Start: 04-13-2023 Refill Zeinab Wood MD Work Phone: Rheumatology Comment on above: Refill Request Start: 04-13-2023 Refill Zeinab Wood MD Work Phone: Rheumatology Comment on above: Refill Request Start: 04-06-2023 End: 04-06-2023 Patient encounter procedure MD Sammie Gonzalez Work Phone: [facility]-Nuc [facility] [place] Work Phone: Start: 03-31-2023 End: 03-31-2023 ambulatory Russell Shields Other [employer] Other Start: 03-31-2023 Patient encounter procedure Russell Pattenpiedad [facility] Start: 03-07-2023 Refill Zeinab Wood MD Work Phone: Rheumatology Comment on above: Refill Request Start: 01-18-2023 Refill Zeinab Wood MD Work Phone: Rheumatology Comment on above: Refill Request Start: 12-17-2022 End: 12-17-2022 ambulatory Elyssa Gomes Other [employer] [facility] [employer] Other Start: 12-17-2022 Office outpatient visit 15 minutes Elyssamaxine Gomes [facility] Start: 12-11-2022 ambulatory Zeinab Wood MD Work Phone: Rheumatology Comment on above: Fibro Start: 10-10-2022 End: 10-11-[address] SAMMIE GONZALEZ Facility: Start: 09-29-2022 End: 09-29-2022 Patient encounter procedure Zeinab Wood MD Work Phone: Rheumatology Comment on above: Inflammatory arthrit is (Primary Dx); Myalgia; Fibromyalgia Start: 09-29-2022 Telephone encounter Zeinab kenyon MD Work Phone: Rheumatology Comment on above: Orders (Plaquenil) Start: 09-24-2022 End: 09-24-2022 Patient encounter procedure MD Sammie Gonzalez Work Phone: [facility] Start: 09-24-2022 End: 09-24-2022 ambulatory MD Sammie Gonzalez Work Phone: [facility] Work Phone: Start: 09-24-2022 Office outpatient visit 15 minutes Elyssa Gomes [facility] Start: 08-05-2022 Office outpatient visit 15 minutes Elyssa Gomes [facility] Start: 08-05-2022 End: 08-05-2022 ambulatory MD Sammie Gonzalez Work Phone: [facility] Work Phone: Start: 08-05-2022 End: 08-05-2022 Patient encounter procedure MD Sammie Gonzalez Work Phone: [facility] Start: 07-29-2022 End: 07-29-2022 ambulatory MD Sammie Gonzalez Work Phone: [facility] Work Phone: Start: 07-29-2022 End: 07-29-2022 Patient encounter procedure MD Sammie Gonzalez Work Phone: [facility] [place] Start: 07-17-2022 End: 07-17-2022 ambulatory Beti Bowles Other [employer] Other Start: 07-17-2022 Office outpatient visit 15 minutes Beti Bowles [facility] Start: 06-25-2022 End: 06-25-2022 ambulatory Beti Bowles Other [employer] Other Start: 06-25-2022 Office outpatient visit 15 minutes Beti Bowles [facility] Start: 05-10-[address] SAMMIE GONZALEZ Facility : Start: 05-06-2022 End: 05-06-2022 Patient encounter procedure MD Sammie Gonzalez Work Phone: [facility] Start: 05-01-2022 End: 05-01-2022 Patient encounter procedure MD Sammie Gonzalez Work Phone: [facility] [place] Start: 03-31-2022 End: 03-31-2022 ambulatory Beti Bowles Other [employer] Other Start: 03-31-2022 Office outpatient visit 15 minutes Beti Bowles [facility] Start: 03-21-2022 End: 03-21-2022 Discharged Recurring MD Sammie Gonzalez Work Phone: [facility]-Physical Therapy [place] Start: 01-27-2022 End: 01-27-2022 ambulatory Beti Bowles Other [employer] Other Start: 01-27-2022 Office outpatient visit 15 minutes Beti Bowles [facility] Start: 01-24-2022 End: 01-24-2022 ambulatory Elyssa Gomes Other [employer] Other Start: 01-24-2022 Office outpatient visit 15 minutes Elyssamaxine Gomes [facility] Start: 01-20-2022 End: 01-20-2022 ambulatory Beti Bowles Other [employer] Other Start: 01-20-2022 Office outpatient visit 15 minutes Beti Bowles [facility] Start: 01-20-2022 End: 01-20-2022 Patient encounter procedure Zeinab Wood MD Work Phone: Rheumatology Comment on above: Inflammatory arthrit is (Primary Dx); Myalgia Start: 12-24-2021 End: 12-24-2021 ambulatory Elyssa Gomes Other [employer] Other Start: 12-24-2021 Postop follow up visit related to original px Elyssamaxine Gomes [facility] Start: 12-19-2021 End: 12-19-2021 ambulatory Beti Bowles Other [employer] Other Start: 12-19-2021 Telephone encounter Beti Bowles [facility] Start: 12-02-2021 End: 12-02-2021 ambulatory Beti Bowles Other [employer] Other Start: 12-02-2021 Office outpatient visit 15 minutes Beti Bowles [facility] Start: 11-20-2021 End: 11-20-2021 ambulatory Elyssa Calvmary Other [employer] Other Start: 11-20-2021 Postop follow up visit related to original px Elyssa Calvey [facility] Start: 10-08-2021 End: 10-08-2021 ambulatory Elyssa Calvey Other [employer] Other Start: 10-08-2021 Office outpatient visit 25 minutes Elyssa Calvey [facility] Start: 08-28-2021 End: 08-28-2021 ambulatory Elyssa Calvey Other [employer] Other Start: 08-28-2021 Office outpatient visit 25 minutes Elyssa Cesarey [facility] Start: 08-12-2021 End: 08-12-2021 ambulatory Elyssa Calvmary Other [employer] Other Start: 08-12-2021 Telephone encounter Elyssa Gomes [facility] Start: 06-18-2021 Office outpatient visit 15 minutes Elyssa Mireya [facility] Start: 06-05-2021 Office outpatient visit 15 minutes Beti Bowles [facility] Start: 05-11-2017 End: 05-12-2017 Ambulatory DEFAULT PHYSICIAN Facility:[facility] Procedures Date Procedure Procedure Detail Performing [...] head MD Sammie Gonzalez Work Phone: Start: 08-16-2023 Screening mammograph y of bilateral breasts MD [...] 12/28/2024 9:20 AM EDT Office Visit Rheumatology [address] [place] [address] Zeinab Wood MD [address] [place], [place] [id number] 6 month follow up Rheumatology Comment on above: 6 month follow up Start: 05-30-2024 End: 05-30-2024 Patient encounter procedure 05/30/2024 9:40 AM EDT Office Visit Rheumatology [address] [place] [address] Zeinab Wood MD [address] [place] [address] Return in about 8 months (around 05/29/2024) for arthralgias, FM . Rheumatology Comment on above: Return in about 8 mo nths (around 05/29/2024) for arthralgias, FM . Start: 05-15-2024 Covid-19 Vaccine ( season) Covid-19 Vaccine ( season) [facility] Start: 05-15-2024 Influenza vaccination C [facility] Start: 04-04-2024 End: 04-04-2024 Admission to same day surgery center 04/04/2024 7:30 AM EDT - 04/04/2024 2:30 PM EDT Surgery Admitting [address] [place] [address] Erik Pineda MD [address] [place] [address] ORBITOCRANIAL TO ANT CRAN FOSSA W/ SUPRAORB [...] 7:30 AM EDT Hospital Encounter Admitting [address] [place] [address] Erik Pineda MD [address] [place] [address] Intracranial meningioma (HCC) [D32.0] Admitting Comment on above: Intracranial meningi sera (HCC) [D32.0] Start: 03-22-2024 End: 03-22-2024 Patient encounter procedure Pre Anesthesia Comment on above: Preop, ORBITOCRANIAL TO ANT CRAN FOSSA W/ SUPRAORB RIDGE OSTEOTOMY & ELEV FRONT&TEMP LOBE Preop lab and nasal swab Start: 03-04-2024 DIABETES SCREEN DIABETES SCREEN [facility] Start: 03-04-2024 Diabetes Screening Diabetes Screenin g [facility] Start: 02-05-2024 End: 02-05-2024 ambulatory 02/05/2024 7:00 AM EDT [facility] Neurology Headache [facility] [address] [place] [address] Rachele Fenton APRN.HOSPITAL RECEIVING CLERK [address] [place] [address] f/u Neurology Headache [facility] Comment on above: f/u Start: 01-29-2024 End: 01-29-2024 Patient encounter procedure [facility] Comment on above: R Sphenoid Wing Meni ngioma Start: 01-21-2024 End: 01-21-2024 ambulatory 01/21/2024 2:30 PM EDT [facility] [place] [address] [place] [address] Montse Lou DO, PhD [address] [place] [address] Check up for headaches [facility] [place] Comment on above: Check up for headach es Start: 09-14-2023 Behavioral Health Screening Behavioral Health Screening [facility] Start: 09-14-2023 Depression Assessment Depression Ass essment [facility] Start: 05-15-2023 Covid-19 Vaccine () Covid-19 Vaccine () [facility] Start: 05-15-2023 Influenza vaccination C [facility] Start: 2022 COLOGUARD (FIT-DNA) COLOGUARD (FIT-D NA) [facility] Start: 2022 Colonoscopy COLONOSCOPY [facility] Start: 2022 COLORECTAL CANCER SCREENING COLORECTAL CANCER SCREENING [facility] Start: [address] COLONOGRAPHY [facility] Start: 2022 FECAL OCCULT BLOOD FECAL OCCULT BLOO D [facility] Start: 2022 Lipid 1996 panel - Serum or Plasma Lipid Screening [facility] Start: 2022 Lipid panel Lipid Screening [facility] Start: 2022 LIPID SCREEN LIPID SCREEN [facility] Start: 2022 Screening for malign ant neoplasm of colon [facility] Start: 2022 SIGMOIDOSCOPY SIGMOIDOSCOPY [facility] Start: 09-14-2022 DEPRESSION ASSESSMENT DEPRESSION ASS ESSMENT [facility] Start: 05-06-2022 Plain X-ray of right wrist XR wrist RT min 3V* [facility] Start: 05-06-2022 End: 05-06-2022 Patient encounter procedure Departed [facility] Start: 05-01-2022 End: 05-01-2022 Patient encounter procedure Departed [facility] [place] Start: 03-01-2022 Adult depression screening assessment DEPRESSION SCREENING [facility] Start: 07-04-2021 Urine microalbumin profile DTaP,Tdap,Td Vaccine (1 - Tdap) [facility] Start: 03-21-2021 COVID-19 VACCINE (3 - Booster for Pfizer series) COVID-19 VACCINE (3 - Booster for Pfizer series) [facility] Start: 03-21-2021 COVID-19 VACCINE (3 - Pfizer series) COVID-19 VACCINE (3 - Pfizer series) [facility] Start: 02-21-2021 COVID-19 VACCINE (3 - Pfizer risk 4-dose series) COVID-19 VACCINE (3 - Pfizer risk 4-dose series) [facility] Start: 02-21-2021 COVID-19 VACCINE (3 - Pfizer risk series) COVID-19 VACCINE (3 - Pfizer risk series) [facility] Start: 2017 Mammography [facility] Start: 2017 Screening for malign ant neoplasm of breast Mammogram Screening [facility] Start: 2007 HPV TESTING HPV TESTING [facility] Start: 2007 Screening for malign ant neoplasm of cervix HPV Testing [facility] Start: 1998 PAP TESTING PAP TESTING [facility] Start: 1998 Screening for malign ant neoplasm of cervix [facility] Start: 1996 Hepatitis B Vaccine (1 of 3 - 19+ 3-dose series) Hepatitis B Vaccine (1 of 3 - 19+ 3-dose series) [facility] Start: 1996 SHINGRIX VACCINE (1 of 2) SHINGRIX VACCINE (1 of 2) [facility] Start: 1996 Urine microalbumin profile [facility] Start: 1995 Anxiety Screening Anxiety Screening [facility] Start: 1995 Depression Screening Depression Scre ening [facility] Start: 1983 PNEUMOCOCCAL (1 - PCV) PNEUMOCOCCAL (1 - PCV) [facility] Start: 1977 HEPATITIS B (1 of 3 - 3-dose series) HEPATITIS B (1 of 3 - 3-dose series) [facility] Start: 1977 Hepatitis B Vaccine (1 of 3 - 3-dose series) Hepatitis B Vaccine (1 of 3 - 3-dose series) [facility] Bacteria identified in Urine by Culture Urine Culture [facility] Insulin [Units/volum e] in Serum or Plasma [facility] MR Skull base WO and W contrast IV MRI SKULL BASE WO/W IVCON Radiology Routine Benign neoplasm of meninges (HCC) 01/29/2024 1:56 PM EDT [facility] Work Phone: [facility] Immunizations Immunization Date Immunization Notes Care Provider Huseyin beard 06-18-2022 influenza virus vaccine, unspecified formulation Fahad Luong MD Work Phone: [facility] 05-15-2021 Kenalog -40 mg Beti rice Other [employer] Other 04-10-2021 Kenalog -40 mg Beti rice Other [employer] Other 01-24-2021 COVID-19 mRNA Comirnaty (Pfizer) MD Sammie Gonzalez Work Phone: [facility] 01-02-2021 COVID-19 mRNA Comirnaty (Pfizer) MD Sammie Gonzalez Work Phone: [facility] 11-15-2020 Kenalog -40 mg Beti Kear dwayne Other [employer] Other 03-08-2020 Gel-Syn Beti Kearne y Other [employer] Other 03-01-2020 Gel-Syn Beti Kearne y Other [employer] Other 02-16-2020 Gel-Syn Beti Kearne y Other [employer] Other 01-26-2020 Kenalog -40 mg Beti Kear dwayne Other [employer] Other 08-11-2017 Theraputic Injection Shareefe martin Bowles Other [employer] Other 08-04-2017 Theraputic Injection Michellenife r Jelena Other [employer] Other 07-07-2017 Kenalog -40 mg Beti Kear dwayne Other [employer] Other 04-09-2017 Kenalog -40 mg Beti Kear dwayne Other [employer] Other 12-11-2016 Kenalog -40 mg Beti Kear dwayne Other [employer] Other 09-29-2014 influenza, injectabl e, quadrivalent, contains preservative Beti Bowles Other [facility] Payers Date Payer Category Payer Medicare [id number] 2024 Unknown 2024 Medicaid [id number] 2024 Unknown [id number] 2023 Self-pay [id number] 2023 Medicaid [id number] 2009 Medicare MEDICARE MEDICAR E A AND B [id number] 2009-Present [phone] [place] [address] Medicare [id number] 2009 Medicare [id number] 1977 Unknown [id number] 1977 Unknown [id number] 1977 Unknown [id number] 1977 Unknown [id number] 1977 Unknown [id number] 1977 Unknown [id number] 1977 Unknown [id number] 1975 Unknown [id number] 1957 Medicare [id number] 1957 Unknown [id number] Unknown [id number] Unknown [id number] Unknown [id number] Unknown [id number] Unknown [id number] Unknown [id number] Social History Date Type Detail Facility Start: 03-04-2021 End: 10-24-2021 Tobacco smoking status NHIS Ex-smoker [facility] Start: 03-04-2021 End: 09-28-2023 Tobacco use and exposure Smokeless tobacco non-user [facility] Start: 1975 Sex Assigned At Female [facility] Start: 01-10-2022 End: 01-20-2022 Exposure to SARS-CoV-2 (event) Not sure [facility] Start: 09-22-2022 End: 06-01-2023 Sex Assigned At [facility] History of tobacco use Current smoker [facility] Start: 09-22-2022 End: 06-01-2023 History of Social function [facility] Adult Depression Screening Assessment 1 [facility] Start: 02-25-2021 Gender identity Identifies as female gender (finding) [facility] Start: 02-25-2021 Sexual orientation Heterosexual (fin ding) [facility] Start: 06-01-2023 End: 05-30-2024 Alcohol intake Current drinker of alcohol (finding) [facility] Clinical Notes 03-04-2021 to 05-30-2024 Zeinab Wood MD - 05/30/2024 9:52 AM EDTTelephone Encounter - Eun Stanford APRN.HOSPITAL RECEIVING CLERK - 05/26/2024 10:59 AM EDTTelephone Encounter - Eun Stanford APRN.HOSPITAL RECEIVING CLERK - 05/26/2024 10:59 AM EDT Note Date & Type Note Facility 05-30-2024 Note HNO ID: [id number] Author: ZEINAB WOOD MD Service: ? Author [...] and remote event (more content not included)... [facility] 05-30-2024 History of Present illness Narrative Kourtney [...] Swollen Glands: No documented in this encounter [facility] 05-26-2024 Telephone encounter Note The following approved medication requests have been transmitted electronically. Requested Prescriptions Signed Prescriptions Disp Refills methocarbamol (ROBAXIN) 500 mg tablet 45 tablet 2 Sig: Take 1 tablet by mouth two times a day as needed. Authorizing Provider: EUN STANFORD APRN.CNP [facility] 05-26-2024 Miscellaneous Notes The following approved medication [...] Name: RIP Summers documented in this encounter [facility] 05-26-2024 Telephone encounter Note Physician: Eliceo Call [...] as needed. Pharmacy Name: [facility] T[facility] Kristopher [facility] 03-25-2024 Telephone encounter Note The following approved medication requests have been transmitted electronically. Requested Prescriptions Pending Prescriptions Disp Refills predniSONE (DELTASONE) 5 mg tablet [Pharmacy Med Name: prednisone 5 mg tablet] 60 tablet 3 Sig: TAKE 1 TO 2 TABLETS BY MOUTH EVERY DAY Zeinab Wood MD [facility] 03-25-2024 Miscellaneous Notes The following approved medication [...] 365 Days Visit Type Date Time Department [facility] 05/30/2024 9:40 AM [facility] Last Ophthalmology Check for Plaquenil (Hydroxychloroquine) [...] (HCC), Preop testing TYPE AND SCREEN,30 DAY [[id number]] 02/03/24 05/04/24 02/03/24 Auth. provider: Erik Pineda MD Assoc. diagnoses: Intracranial meningioma (HCC), Preop testing documented in this encounter [facility] 03-25-2024 Telephone encounter Note No standing orders on file Most recent Rheumatology visit: 09/28/2023 (with Zeinab Wood) Rheumatology Care Team: None on file Recent Office Visits - This Specialty 09/28/2023 Inflammatory arthritis Rheumatology Zeinab Wood MD 09/29/2022 Inflammatory arthritis Rheumatology Zeinab Wood MD 01/20/2022 Inflammatory arthritis Rheumatology Zeinab Wood MD Upcoming Rheumatology Appointments - Next 365 Days Visit Type Date Time Department [facility] 05/30/2024 9:40 AM [facility] Last Ophthalmology Check for Plaquenil (Hydroxychloroquine) [...] (HCC), Preop testing TYPE AND SCREEN,30 DAY [[id number]] 02/03/24 05/04/24 02/03/24 Auth. provider: Erik Pineda MD Assoc. diagnoses: Intracranial meningioma (HCC), Preop testing [facility] 03-23-2024 Telephone encounter Note Patient last seen 02/05/2024. [facility] 03-23-2024 Miscellaneous Notes Patient last seen 02/05/2024. documented in this encounter [facility] 03-08-2024 Telephone encounter Note ADDENDUM: March 08, 2024 2:39 PM Distance Health Visit on 02/02/2024 including the details for the patient's surgery was faxed to Moira DONOVAN ( [facility]) . Mario Alberto Phillips RN, Compliance Attorney [facility] 03-08-2024 Miscellaneous Notes ADDENDUM: March 08, 2024 2:39 PM Distance Health Visit on 02/02/2024 including the details for the patient's surgery was faxed to Moira DONOVAN ( [facility]) . Mario Alberto Phillips RN, Compliance Attorney Spoke with nurse Pizarro. We discussed that the patient's epidural steroid injection on 03/14/2024 for her neck pain (C7/T1) is far out from her surgery for the craniotomy with Dr Erik Pineda (04/04/24). Mario Alberto Phillips RN, Compliance Attorney General Call Caller : Moira harrison at [facility] Contact Reason for Call : Nurse would like to confirm that pt is allowed to receive steroid injection prior to surgery-80mg of kenalog Patient requesting return call ? Yes documented in this encounter [facility] 03-08-2024 Telephone encounter Note Spoke with nurse Moira. We discussed that the patient's epidural steroid injection on 03/14/2024 for her neck pain (C7/T1) is far out from her surgery for the craniotomy with Dr Erik Pineda (04/04/24). Mario Alberto Phillips RN, Compliance Attorney [facility] 03-08-2024 Telephone encounter Note General Call Caller : Moira Ortiz nurse at [facility] Contact Reason for Call : Nurse would like to confirm that pt is allowed to receive steroid injection prior to surgery-80mg of kenalog Patient requesting return call ? Yes [facility] 02-10-2024 Telephone encounter Note Images from the original note were not included. Prior Authorization for Medications Requested by ([employer], Pharmacy, Patient Call, Fax) : [employer] Pharmacy Name: [facility] Phone # : [phone] Name of Medication : Robaxin Dose : 500 mg Tablet If renewal, auth date expiration: NA Prescribing Provider: Eliceo Last OV: 02/05/2024 with Eliceo Insurance Provider : Medicare / [employer]. Is insurance card scanned in, including Rx info? Medicare card scanned - no RX information Insurance Phone : CoverMyMeds [place]: NA E-PA? Yes [facility] 02-10-2024 Miscellaneous Notes Images from the original note were not included. Prior Authorization for Medications Requested by ([employer], Pharmacy, Patient Call, Fax) : [employer] Pharmacy Name: [facility] Phone # : [phone] Name of Medication : Robaxin Dose : 500 mg Tablet If renewal, auth date expiration: NICOLAS Prescribing Provider: Eliceo Last OV: 02/05/2024 with Juan Luisdamarie Insurance Provider : Medicare / [employer]. Is insurance card scanned in, including Rx info? Medicare card scanned - no RX information Insurance Phone : CoverMyMeds [place]: NICOLAS E-PA? Yes documented in this encounter [facility] 02-05-2024 History of Present illness Narrative Images [...] visit. Either the patient or their legal industrial sales representative has been informed of the [...] these with the patient: yes Rachele Fenton APRN.HOSPITAL RECEIVING CLERK HEADACHE SCORES: 06/19/2023 02/01/2024 Headache Questions ID [...] soft tissue component identified in the orbit. Automatic Vulcanizing Operator: PSCB Transcribe Date/Time: Jan 31 2024 3:33P [...] and clear, coherent, and relevant. Short and skilled nursing memory, cognition and general fund of knowledge [...] 30 minutes Rachele Fenton APRN.CNP Headache Section [facility] February 05, 2024 documented in this encounter [facility] 02-05-2024 Note HNO ID: [id number] Author: RACHELE FENTON APRN.CNP Service: ? Author [...] visit. Either the patient or their legal industrial sales representative has been informed of the [...] Albert Status Asses (more content not included)... [facility] 02-02-2024 Note HNO ID: [id number] Author: VANESSA UGARTE MD Service: ? Author Type: Fellow Type: Progress Notes Filed: 02/02/2024 19:52 Note Text: SECTION OF SKULL BASE SURGERY MINIMALLY INVASIVE CRANIAL BASE AND PITUITARY SURGERY PROGRAM [facility] [place] CC: Patient Care Team: Sammie Gonzalez [...] which included preparing to see the patient, [id number] patient care, completing clinical documentation, performing a [...] sphenoid wing without significant change since 05/06/2023. Automatic Vulcanizing Operator: PSCB Transcribe Date/Time: Jan 31 2024 5:10P Dictated by : WESTLEY IYER MD This examination was interpreted and the report reviewed and electronically signed by: WESTLEY IYER MD on Jan 31 2024 5:28PM EST Results-Findings * * *Final Report* * * DATE OF EXAM: Jan 29 2024 1:56PM [facility] 0319 - MRI SKULL BASE WO/W IVCON / PROCEDURE REASON: Benign neoplasm of meninges (HCC) * * * * Physician Interpretation * * * * EXAMINATION: MRI SKULL BASE WO/W IVCON CLINICAL HISTORY: Sphenoid wing meningioma. TECHNIQUE: Sagittal T1, high-resolution coronal and axial T1, fat-suppressed axial fast T2 (more content not included)... [facility] 02-02-2024 History of Present illness Narrative Images from the original note were not included. SECTION OF SKULL BASE SURGERY MINIMALLY INVASIVE CRANIAL BASE & PITUITARY SURGERY PROGRAM [facility] [place] CC: Patient Care Team: Sammie Gonzalez [...] which included preparing to see the patient, [id number] patient care, completing clinical documentation, performing a [...] sphenoid wing without significant change since 05/06/2023. Automatic Vulcanizing Operator: [employer] Transcribe Date/Time: Jan 31 2024 5:10P Dictated by : WESTLEY IYER MD This examination was interpreted and the report reviewed and electronically signed by: WESTLEY YIER MD on Jan 31 2024 5:28PM EST Results-Findings * * *Final Report* * * DATE OF EXAM: Jan 29 2024 1:56PM [facility] 0319 - MRI SKULL BASE WO/W IVCON [...] tissue mass extending into the of the cloth bin packer or parapharyngeal spaces. The soft tissue planes of the, retropharyngeal, and prevertebral spaces are maintained. The visualized parotid glands are normal in appearance. Nasopharynx/Oropharynx: The nasopharynx and oropharynx are normal in appearance. Result History documented in this encounter [facility] 02-02-2024 Telephone encounter Note Called the patient confirming virtual appointment today at [address] Vanessa Ugarte ( Skull base fellow from Dr Pineda team). [facility] 02-02-2024 Miscellaneous Notes Called the patient confirming virtual appointment today at [address] Vanessa Ugarte ( Skull base fellow from Dr Pineda team). documented in this encounter [facility] 02-01-2024 Telephone encounter Note Pharmacy requesting refill via [employer]. Last OV: 06/26/2023 Future OV: 02/05/2024 with Rachele Fenton APRN.JOSSIE Last prescribed: 06/26/2023 Requested Prescriptions Pending Prescriptions Disp Refills tiZANidine (ZANAFLEX) 4 mg tablet [Pharmacy Med Name: tizanidine 4 mg tablet] 60 tablet 3 Sig: take 1 tablet by mouth every 8 hours as needed [facility] 02-01-2024 Miscellaneous Notes Pharmacy requesting refill via Mychart. Last OV: 06/26/2023 Future OV: 02/05/2024 with Rachele Fenton APRN.JOSSIE Last prescribed: 06/26/2023 Requested Prescriptions Pending Prescriptions Disp Refills tiZANidine (ZANAFLEX) 4 mg tablet [Pharmacy Med Name: tizanidine 4 mg tablet] 60 tablet 3 Sig: take 1 tablet by mouth every 8 hours as needed documented in this encounter [facility] 01-29-2024 Note HNO ID: [id number] Author: KOFI [place] CT Service: Radiology Author [...] PATIENT PRESENTS WITH AN IMPLANTABLE OR ATTACHED MAKE UP GIRL: No RADIOLOGY DEPARTMENT: CT; Exam(s) Completed: Brain STERO PERIPHERAL IV DATA: Not applicable SIGNED BY: KAYLEEN Sharma January 29, 2024 12:53 PM [facility] 01-29-2024 Note HNO ID: [id number] Author: AILYN NEUMANN RT(R) Service: ? Author [...] PATIENT PRESENTS WITH AN IMPLANTABLE OR ATTACHED MAKE UP GIRL: No ALLERGIES: Reviewed and unchanged CONTRAST ALLERGY: NO. EXAM: MRI - CONTRAST TYPE: GROUP II PERIPHERAL IV DATA: Ambulatory: A peripheral IV was started in the Left antecubital site with a Angio cath: 22 gauge. RADIOLOGY DEPARTMENT: MR; Exam(s) Completed: Head: Routine Brain SIGNATURE: Ailyn Neumann RDMS, RVT- Sheila ([facility]) PATIENT NAME: Kourtney Novak DATE: January 29, 2024 TIME: 1:06 PM [facility] 01-29-2024 History of Present illness Narrative [...] PATIENT PRESENTS WITH AN IMPLANTABLE OR ATTACHED MAKE UP GIRL: No RADIOLOGY DEPARTMENT: CT; Exam(s) Completed: Brain STERO PERIPHERAL IV DATA: Not applicable SIGNED BY: KAYLEEN Sharma January 29, 2024 12:53 PM documented in this encounter [facility] 01-29-2024 History of Present illness Narrative Radiology [...] PATIENT PRESENTS WITH AN IMPLANTABLE OR ATTACHED MAKE UP GIRL: No ALLERGIES: Reviewed and unchanged CONTRAST ALLERGY: NO. EXAM: MRI - CONTRAST TYPE: GROUP II PERIPHERAL IV DATA: Ambulatory: A peripheral IV was started in the Left antecubital site with a Angio cath: 22 gauge. RADIOLOGY DEPARTMENT: MR; Exam(s) Completed: Head: Routine Brain SIGNATURE: Ailyn Neumann RDMS, RVT- Sheila ([facility]) PATIENT NAME: Kourtney Novak DATE: January 29, 2024 TIME: 1:06 PM documented in this encounter [facility] 01-27-2024 Telephone encounter Note The following approved medication requests have been transmitted electronically. Requested Prescriptions Pending Prescriptions Disp Refills etodolac (LODINE) 400 mg tablet 60 tablet 3 Sig: One tab po bid prn Zeinab Wood MD [facility] 01-27-2024 Miscellaneous Notes The following approved medication [...] 365 Days Visit Type Date Time Department [facility] 05/30/2024 9:40 AM [facility] Last Ophthalmology Check for Plaquenil (Hydroxychloroquine) [...] Lab Orders None documented in this encounter [facility] 01-27-2024 Telephone encounter Note Most recent Rheumatology visit: 09/28/2023 (with Zeinab Wood) Rheumatology Care Team: None on file Recent Office Visits - This Specialty 09/28/2023 Inflammatory arthritis Rheumatology Zeinab Wood MD 09/29/2022 Inflammatory arthritis Rheumatology Zeinab Wood MD 01/20/2022 Inflammatory arthritis Rheumatology Zeinab Wood MD Upcoming Rheumatology Appointments - Next 365 Days Visit Type Date Time Department [facility] 05/30/2024 9:40 AM [facility] Last Ophthalmology Check for Plaquenil (Hydroxychloroquine) [...] Open Future (Single Instance) Lab Orders None [facility] 01-19-2024 Telephone encounter Note Spoke with Kourtney [...] discussion and consent. Both appointments were confirmed. [facility] 01-19-2024 Miscellaneous Notes Spoke with Kourtney again [...] the patient's home. Mario Alberto Phillips RN, Compliance Attorney documented in this encounter [facility] 01-19-2024 Telephone encounter Note Spoke with Ms Oconnell Alex Novak today confirming surgery on 04/11/[address] Erik Pineda. Right middle sphenoid wing Preoperative appointments will be scheduled ~ 2 weeks prior to surgery date at a [facility] facility closer to the patient's home. Mario Alberto Phillips RN, Compliance Attorney [facility] 01-05-2024 Telephone encounter Note Spoke with Ms. Kourtney Novak today confirming surgery on Thu03/28/[address] Erik Pineda. Preoperative appointments to be scheduled at a [facility] facility near the patient's home. [facility] 01-05-2024 Miscellaneous Notes Spoke with Ms. Kourtney Novak today confirming surgery on Thu03/28/[address] Erik Pineda. Preoperative appointments to be scheduled at a [facility] facility near the patient's home. documented in this encounter [facility] 01-04-2024 Telephone encounter Note Orders faxed. Confirmation received. [facility] 01-04-2024 Miscellaneous Notes Orders faxed. Confirmation received. Printed labs. Sent msg to to clarify which [facility] to fax to. Labs/Fax sheet in Michelle's [employer] folder. Please fax once clarification is received. Labs are ordered, please print and fax per patient request. Zeinab Wood MD Patient calling Needs 01/01/24 Lab Orders in Epic please (pended) Also requesting to FAX 01/01/24 Lab Orders to [facility] She will send their FAX # in My Chart documented in this encounter [facility] 01-04-2024 Telephone encounter Note Printed labs. Sent MC msg to pt to clarify which [facility] Lab to fax to. Labs/Fax sheet in Michelle's [employer] folder. Please fax once clarification is received. [facility] 01-04-2024 Telephone encounter Note Labs are ordered, please print and fax per patient request. Zeinab Wood MD [facility] 01-04-2024 Telephone encounter Note Patient calling Needs 01/01/24 Lab Orders in Epic please (pended) Also requesting to FAX 01/01/24 Lab Orders to [facility] She will send their FAX # in My Chart [facility] 12-02-2023 Miscellaneous Notes Called and spoke to patient and she stated she has appointment for eye exam in 01/2024. Called patient and left vm message that eye exam needed and medication sent to pharmacy and if patient had any question please call [phone]. My Chart Message also sent. She needs [...] Days Visit Type Date Time Department [facility] 05/30/2024 9:40 AM [facility] Last Ophthalmology Check for Plaquenil (Hydroxychloroquine) [...] Lab Orders None documented in this encounter [facility] 11-12-2023 Miscellaneous Notes The following approved medication [...] 365 Days Visit Type Date Time Department [facility] 05/30/2024 9:40 AM [facility] Last Ophthalmology Check for Plaquenil (Hydroxychloroquine) [...] Lab Orders None documented in this encounter [facility] 11-11-2023 Miscellaneous Notes The following approved medication [...] 365 Days Visit Type Date Time Department [facility] 05/30/2024 9:40 AM [facility] Last Ophthalmology Check for Plaquenil (Hydroxychloroquine) [...] Lab Orders None documented in this encounter [facility] 11-11-2023 Miscellaneous Notes Spoke with Ms.Mandie Alex Novak today following up on the [employer] message from 10/08/2023. She sent a message about having symptoms of blurry vision and was advised to schedule an appointment with ophthalmology. Today the patient stated that the blurry vision was 1 incident and that she did not have any vision changes since. She was made aware to send an update or call for any questions or concerns. Mario Alberto Phillips RN, Compliance Attorney documented in this encounter [facility] 11-10-2023 Miscellaneous Notes Most recent Rheumatology visit: 09/28/2023 (with Zeinab Wood) Rheumatology Care Team: None on file Recent Office Visits - This Specialty 09/28/2023 Inflammatory arthritis Rheumatology Zeinab Wood MD 09/29/2022 Inflammatory arthritis Rheumatology Zeinab Wood MD 01/20/2022 Inflammatory arthritis Rheumatology Zeinab Wood MD Upcoming Rheumatology Appointments - Next 365 Days Visit Type Date Time Department [facility] 05/30/2024 9:40 AM [facility] Last Ophthalmology Check for Plaquenil (Hydroxychloroquine) [...] Lab Orders None documented in this encounter [facility] 09-28-2023 Note HNO ID: [id number] Author: ZEINAB WOOD MD Service: ? Author [...] decreased muscle mass. (more content not included)... [facility] 07-06-2023 Miscellaneous Notes Spoke with Ms. Kourtney Novak. We discussed that it is so far out to schedule surgery in March 2024. We discussed option of possible surgery dates. She will be contacted during late December- January 2024 to confirm the date of surgery and schedule the preoperative appointments. Mario Alberto Phillips RN, Compliance Attorney General Call Caller : Pt Contact Reason for Call : Pt would like to go forward w scheduling surgery. However, she would like surgery to be scheduled in March 2024, pt would like to discuss further Patient requesting return call ? Yes documented in this encounter [facility] 07-06-2023 Miscellaneous Notes Spoke with Ms. Kourtney Novak. We discussed that it is so far out to schedule surgery in March 2024. We discussed option of possible surgery dates. She will be contacted during late December- January 2024 to confirm the date of surgery and schedule the preoperative appointments. Mario Alberto Phillips RN, Compliance Attorney documented in this encounter [facility] 06-30-2023 Instructions Heather Moy APRN.CNP - 06/30/2023 [...] back Apr 2024). documented in this encounter [facility] 06-30-2023 Nurse Note Additional intake questions: Has the patient had fever, nausea, vomiting, diarrhea, constipation, fatigue for > 1 week? No Does the patient have a decreased appetite? No Does patient want to see a Compensation Analyst? No (yes to any of above refer patient to schedulers for dietitian appointment) ) Does patient have any new or increased numbness or tingling of extremities? No Is patient interested in fertility information? No Does patient need any prescription refills? No Does patient have an advanced directive in place? No, Patient referred to Resource [facility] documented in this encounter [facility] 06-30-2023 Note HNO ID: [id number] Author: Erik Pineda MD Service: ? Author Type: Physician Type: Progress Notes Filed: 07/11/2023 2:03 PM Note Text: SECTION OF SKULL BASE SURGERY MINIMALLY INVASIVE CRANIAL BASE AND PITUITARY SURGERY PROGRAM [facility] [place] CC: Patient Care Team: Sammie Gonzalez MD as PCP - General (Family Medicine) Montse Lou DO - [facility] ASSESSMENT: In summary, Kourtney Novak is [...] and follow-up via virtual visit. Heather Moy APRN.HOSPITAL RECEIVING CLERK I have reviewed the progess note obtained [...] which included preparing to see the patient, [id number] patient care, completing clinical documentation, performing a medically appropriate examination, counseling and educating the patient/family/caregiver, communicating with other HCPs, independently interpreting results and care coordination. Erik Pineda MD The patient is referred by Dr. Montse oLu for neurosurgical evaluation. Final recommendations will be [...] tablet by mout (more content not included)... [facility] 06-30-2023 History of Present illness Narrative Images from the original note were not included. SECTION OF SKULL BASE SURGERY MINIMALLY INVASIVE CRANIAL BASE & PITUITARY SURGERY PROGRAM [facility] [place], [facility] CC: Patient Care Team: Sammie Gonzalez MD as PCP - General (Family Medicine) Montse Lou DO - [facility] ASSESSMENT: In summary, Kourtney Novak is [...] and follow-up via virtual visit. Heather Moy APRN.HOSPITAL RECEIVING CLERK I have reviewed the progess note obtained [...] which included preparing to see the patient, [id number] patient care, completing clinical documentation, performing a medically appropriate examination, counseling and educating the patient/family/caregiver, communicating with other HCPs, independently interpreting results and care coordination. Erik Pineda MD The patient is referred by Dr. Montes Lou for neurosurgical evaluation. Final recommendations will [...] the prior exam. documented in this encounter [facility] 06-26-2023 Instructions Fahad Luong MD - 06/26/2023 [...] 2023 5:39 PM documented in this encounter [facility] 06-26-2023 Note HNO ID: [id number] Author: Fahad Luong MD Service: ? Author Type: Physician Type: Progress Notes Filed: 06/26/2023 5:42 PM Note Text: [facility] NEW EVALUATION June 26, 2023 5:00 PM I have communicated my name and active licensure. The patient's identity and physical location were verified at the time of this visit. Either the patient or their legal industrial sales representative has been informed of the [...] turgor normal, no (more content not included)... [facility] 06-26-2023 History of Present illness Narrative [facility] NEW EVALUATION June 26, 2023 5:00 PM I have communicated my name and active licensure. The patient's identity and physical location were verified at the time of this visit. Either the patient or their legal industrial sales representative has been informed of the [...] 2023 5:36 PM documented in this encounter [facility] 09-18-2023 Note HNO ID: [id number] Author: Montse Lou DO, PhD Service: ? Author Type: Physician Type: Progress Notes Filed: 06/01/2023 9:24 AM Note Text: [facility] New Patient Consultation Referred by Sammie Gonzalez MD [address] [place] [address] Diagnosis: Multiple meningioma's with interval growth since 2016. Subjective History of Present Illness: Kourtney Novak is a 47 year old right handed female referred to [facility] by her PCP due to interval growth of known meningioma's since 2015. She started noticing imbalance a few months ago, leaning and veering to her right. 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 She lives in [place]. Interval History: 06/01/2023: Patient presents to establish care with [facility] and to discuss treatment options for [...] has no known (more content not included)... [facility] 05-13-2023 Miscellaneous Notes Time Frame: Next available Provider: Carmine (possible [facility]) Referring: self Please instruct patient to hand carry/ upload images prior to appt Images also requested via Electronically Dx: Multiple meningiomas with interval growth Multiple meningiomas with interval growth since 2016. MRI done for dizziness. [facility] [place] [address] [place] [address] MRI Report Signed Patient: Kourtney Novak MR#: [id number] : 1975 Acct:[id number] Age/Sex: 47 / F ADM Date: 05/06/23 Loc: Room: Type: [facility] Attending Dr: Sammie Gonzalez MD Copies [...] subcortical white matter. documented in this encounter [facility] 04-13-2023 Miscellaneous Notes The following approved medication [...] 365 Days Visit Type Date Time Department [facility] 09/28/2023 3:00 PM [facility] Last Ophthalmology Check for Plaquenil (Hydroxychloroquine) [...] Lab Orders None documented in this encounter [facility] 04-13-2023 Miscellaneous Notes The following approved medication [...] 365 Days Visit Type Date Time Department [facility] 09/28/2023 3:00 PM [facility] Last Ophthalmology Check for Plaquenil (Hydroxychloroquine) [...] Lab Orders None documented in this encounter [facility] 03-31-2023 Evaluation note Encounter Date Diagnosis Assessment [...] Obtain labs from Dr. Gonzalez regarding diabetes [facility] Other 06-26-2023 Miscellaneous Notes* Telephone Encounter - Tory Thomas LPN - 03/09/2023 11:55 AM EDT Refill to soon refilled 01/19/2023 30 capsules with 3 refilles documented [facility] Miscellaneous Notes* Telephone Encounter - Zeinab Wood [...] Most recent Rheumatology visit: 09/29/2022 (with Zeinab Wodo) Recent Office Visits - This Specialty 09/29/2022 Inflammatory arthritis Rheumatology Zeinab Wood MD 01/20/2022 Inflammatory arthritis Rheumatology Zeinab Wood MD 07/04/2021 Pain in joint, multiple sites Rheumatology Zeinab Wood MD Upcoming Rheumatology Appointments - Next 365 Days Visit Type Date Time Department [facility] 06/26/2023 10:40 AM [facility] Last Ophthalmology Check for Plaquenil (Hydroxychloroquine) [...] Instance) Lab Orders None documented in [facility] encounter[facility] Evaluation note* Encounter Date Diagnosis Assessment Notes Treatment Notes Treatment Clinical Notes Dec, Osteochondrosis of lunate of right wrist (ICD-10 - 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 May repeat ulnar wrist cortisone injection when needed. Patient instructed on the use of Voltaren Gel in the meantime Dec, Right wrist pain (ICD-10 - M25.531) Dec, Other specified postprocedural states (ICD-10 - Z98.890) [facility] Other 03-30-2023 Miscellaneous Notes* Addendum Note - [...] qd Zeinab Wood MD documented in [facility] encounter[facility] Miscellaneous Notes* Telephone Encounter - Zeinab Wood [...] check out. Thank you. documented in this encounterUniversity [facility] History of Present illness Narrative* Zeinab Wood [...] and lyrica- SE Cymbalta- started on 10/06 GENERAL: No weight loss, malaise or fevers., [...] FM- agree with diagnosis Currently on savella biut feels it is not helping Tried lyrica [...] No Swollen Glands: No documented in this encounterUniversity [facility]-2023 Evaluation note* Encounter Date Diagnosis Assessment Notes Treatment Notes Treatment Clinical Notes Sep, Osteochondrosis of lunate of right wrist (ICD-10 - M92.211) Sep, Right wrist pain (ICD-10 - M25.531) Right ulnar wrist joint/TFCC injected with cortisone under sterile technique, patient tolerated well Sep, Other specified postprocedural states (ICD-10 - Z98.890) [facility] Other 11-22-2022 Evaluation note* Encounter Date Diagnosis Assessment Notes Treatment Notes Treatment Clinical Notes Jul, Osteochondrosis of lunate of right wrist (ICD-10 - 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 Decrease to 81 mg Aspirin once per day x 3 months then begin to wean off. Jul, Other specified postprocedural states (ICD-10 - Z98.890) [facility] Other 11-03-2022 Evaluation note* Encounter Date Diagnosis [...] pain of right shoulder (ICD-10 - M25.511) [facility] Other 10-12-2022 Evaluation note* Encounter Date Diagnosis [...] pain of left shoulder (ICD-10 - M25.512) [facility] Other 07-18-2022 Evaluation note* Encounter Date Diagnosis [...] pain of right shoulder (ICD-10 - M25.511) [facility] Other 05-16-2022 Evaluation note* Encounter Date Diagnosis [...] will order an MRI for futher review. [facility] Other 05-13-2022 Evaluation note* Encounter Date Diagnosis Assessment Notes Treatment Notes Treatment Clinical Notes January, Osteochondrosis of lunate of right wrist (ICD-10 - M92.211) January, Right wrist pain (ICD-10 - M25.531) Right ulnar wrist injected with cortisone under sterile technique, patient tolerated well January, Other specified postprocedural states (ICD-10 - Z98.890) [facility] Other 05-09-2022 Evaluation note* Encounter Date Diagnosis [...] oral prednisone as prescribed by Neha ANDERSON. [facility] Other 05-09-2022 History of Present illness Narrative* [...] -none Zeinab Wood MD documented in this encounterUniversity [facility]04[facility] Evaluation note* Encounter Date Diagnosis Assessment Notes [...] Other specified postprocedural states (ICD-10 - Z98.890) [facility] Other 03-21-2022 Evaluation note* Encounter Date Diagnosis [...] pain of right shoulder (ICD-10 - M25.511) [facility] Other 03-09-2022 Evaluation note* Encounter Date Diagnosis Assessment Notes Treatment Notes Treatment Clinical Notes Nov, Osteochondrosis of lunate of right wrist (ICD-10 - M92.211) Patient instructed on gentle ROM exercises. Continue Aspirin. Prescription given for edema glove Nov, Other specified postprocedural states (ICD-10 - Z98.890) [facility] Other 01-25-2022 Evaluation note* Encounter Date Diagnosis Assessment Notes Treatment Notes Treatment Clinical Notes Sep, Osteochondrosis of lunate of right wrist (ICD-10 - M92.211) Patient will proceed with surgery on the right wrist. Risks and benefits of procedure explained to patient; patient verbalizes understanding. [facility] Other 12-15-2021 Evaluation note* Encounter Date Diagnosis Assessment Notes Treatment Notes Treatment Clinical Notes Aug, Osteochondrosis of lunate of right wrist (ICD-10 - M92.211) Right wrist injected with cortisone under sterile technique, patient tolerated well. Patient would like to proceed with surgical treatment in October [facility] Other 11-29-2021 Evaluation note* Encounter Date Diagnosis Assessment Notes Treatment Notes Treatment Clinical Notes Jul, Carpal tunnel syndrome of right wrist (ICD-10 - G56.01) [facility] Other 10-05-2021 Evaluation note* Encounter Date Diagnosis [...] brace as needed for pain and support [facility] Other 09-22-2021 Evaluation note* Encounter Date Diagnosis [...] of right supraspinatus tendon (ICD-10 - M75.101) [facility] Other 06-21-2021 NoteHNO ID: [id number] Author: Hu Blankenship Service: Radiology Author Type: Vp Patient Type: Progress Notes Filed: 03/04/2021 1:11 PM [...] BY: Hu Blankenship March 04, 2021 1:10 [facility] Inflammatory [facility]- Primary Unspecified inflammatory polyarthropathy Myalgia Mylagia and myositis, unspecified documented in this encounter [facility] noteNo InformationNortPathoQuest Other evaluzoufh noteNo assessment information available [facility] Work Phone: evaluation note* Diagnosis Inflammatory arthritis- Primary Unspecified inflammatory polyarthropathy Myalgia Mylagia and myositis, unspecified Fibromyalgia Mylagia and myositis, unspecified documented in this encounter [facility]* Diagnosis Medication overuse headache- Primary Drug induced headache, not elsewhere classified Brain mass Unspecified condition of brain Meningioma (HCC) Benign neoplasm of cerebral meninges Chronic daily headache Headache documented [facility] this [facility]* Diagnosis Intracranial meningioma (HCC)- Primary Benign neoplasm of cerebral meninges documented in this encounter [facility]* Diagnosis Onset Date Resolution Status Osteochondrosis of lunate of right wrist acute Right wrist pain acute [facility] Work Phone: evaluation note* Diagnosis 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) Benign neoplasm of cerebral meninges documented in this encounter [facility]* Diagnosis Benign neoplasm of meninges (HCC) Benign neoplasm of cerebral meninges documented in this encounter [facility]* Diagnosis Chronic daily headache Headache documented in this [facility]* Diagnosis Intracranial meningioma (HCC)- Primary Benign neoplasm of cerebral meninges documented in this encounter [facility]* Diagnosis Meningioma (HCC)- Primary Benign neoplasm of cerebral meninges Chronic daily headache Headache Intracranial meningioma (HCC) Benign neoplasm of cerebral meninges Preop testing Preoperative examination, unspecified documented in this encounter [facility]* Diagnosis Onset Date Resolution Status Osteochondrosis of lunate of right wrist acute Right wrist pain acute Acute pain of right shoulder acute Biceps tendonitis acute [facility] Work Phone: Evaluation note* Diagnosis Onset Date Resolution Status Acute pain of right shoulder acute Biceps tendonitis acute Osteochondrosis of lunate of right wrist acute Right wrist pain acute [facility] Work Phone: Evaluation note* Diagnosis Inflammatory arthritis- Primary Unspecified inflammatory polyarthropathy Fibromyalgia Mylagia and myositis, unspecified Medication monitoring encounter Encounter for therapeutic drug monitoring documented in this encounter [facility] general Narrative - Reported* Type Description Date Medical History GERD Medical History gastroparesis Medical History bipolar Medical History DM II Surgical History carpal tunnel Surgical History cystectomy-left breast Surgical History right neuroplasty, ulnar nerve at elbow 08/2020 Hospitalization History see above Hospitalization History COPD [facility] Other [facility] general Narrative - Reported* Type Description Date Medical History GERD Medical History gastroparesis Medical History bipolar Medical History DM II Medical History COPD Surgical History carpal tunnel Surgical History cystectomy-left breast Surgical History right neuroplasty, ulnar nerve at elbow 08/2020 Surgical History appendectomy 09/2021 Hospitalization History see above Hospitalization History [email or web address] Other [facility] general Narrative - Reported* Type Description Date Medical History GERD Medical History gastroparesis Medical History bipolar Medical History DM II Medical History COPD Surgical History carpal tunnel Surgical History cystectomy-left breast Surgical History right neuroplasty, ulnar nerve at elbow 08/2020 Surgical History appendectomy 09/2021 Surgical History right wrist PIN/core decompress ion Hospitalization History see above Hospitalization History [email or web address] Other [facility] general Narrative - Reported* Type Description Date Medical History GERD Medical History gastroparesis Medical History bipolar Medical History DM II Medical History COPD Surgical History carpal tunnel Surgical History cystectomy-left breast Surgical History right neuroplasty, ulnar nerve at elbow 08/2020 Surgical History appendectomy 09/2021 Surgical History right wrist PIN/core decompress ion Surgical History cubital tunnel Hospitalization History see above Hospitalization History COPD [facility] Other Summary Purpose Family History No Family [...] right wrist Right wrist pain Chief Complaint e78.5 z00.00 r73.09 d64.9 e55.9 3 MONTHS Reason for Visit Osteochondrosis of l unate of right wrist Right wrist pain Chief Complaint e78.5 z00.00 r73.09 d64.9 e55.9 3 MONTHS e03.9 Reason for Visit Osteochondrosis of l unate of right wrist Right wrist pain Additional Source Comments INFORMATION SOURCE (unrecogn ized section and content) DATE CREATED AUTHOR 03/10/2018 [facility] DATE CREATED AUTHOR AUTHOR'S ORGANIZ ATION 03/05/2021 [facility] DATE CREATED AUTHOR AUTHOR'S ORGANIZ ATION 10/13/2022 [facility] DATE CREATED AUTHOR AUTHOR'S ORGANIZ ATION 02/01/2024 [facility] DATE CREATED AUTHOR AUTHOR'S ORGANIZ ATION 02/02/2024 [facility] DATE CREATED AUTHOR AUTHOR'S ORGANIZ ATION 05/31/2024 [facility] DATE CREATED AUTHOR AUTHOR'S ORGANIZ ATION 06/29/2024 [facility] DATE CREATED AUTHOR AUTHOR'S ORGANIZ ATION 07/03/2024 [facility] Source Comments (unrecognize d section and content) In the event this informatio n is protected by the Federal Confidentiality of Alcohol and Drug Abuse Patient Records regulations: The Federal rules restrict any use of the information to criminally investigate or prosecute any alcohol or drug abuse patient.[facility] the event this information is protected by the Federal Confidentiality of Alcohol and Drug Abuse Patient Records regulations: The Federal rules restrict any use of the information to criminally investigate or prosecute any alcohol or drug abuse patient.[facility] CenterIn the event this information is protected by the Federal Confidentiality of Alcohol and Drug Abuse Patient Records regulations: The Federal rules restrict any use of the information to criminally investigate or prosecute any alcohol or drug abuse patient.[facility] CenterIn the event this information is protected by the Federal Confidentiality of Alcohol and Drug Abuse Patient Records regulations: The Federal rules restrict any use of the information to criminally investigate or prosecute any alcohol or drug abuse patient.[facility]In the event this information is protected by the Federal Confidentiality of Alcohol and Drug Abuse Patient Records regulations: The Federal rules restrict any use of the information to criminally investigate or prosecute any alcohol or drug abuse patient.[facility] CenterIn the event this information is protected by the Federal Confidentiality of Alcohol and Drug Abuse Patient Records regulations: The Federal rules restrict any use of the information to criminally investigate or prosecute any alcohol or drug abuse patient.[facility] CenterIn the event this information is protected by the Federal Confidentiality of Alcohol and Drug Abuse Patient Records regulations: The Federal rules restrict any use of the information to criminally investigate or prosecute any alcohol or drug abuse patient.[facility] CenterIn the event this information is protected by the Federal Confidentiality of Alcohol and Drug Abuse Patient Records regulations: The Federal rules restrict any use of the information to criminally investigate or prosecute any alcohol or drug abuse patient.[facility] CenterIn the event this information is protected by the Federal Confidentiality of Alcohol and Drug Abuse Patient Records regulations: The Federal rules restrict any use of the information to criminally investigate or prosecute any alcohol or drug abuse patient.[facility] CenterIn the event this information is protected by the Federal Confidentiality of Alcohol and Drug Abuse Patient Records regulations: The Federal rules restrict any use of the information to criminally investigate or prosecute any alcohol or drug abuse patient.[facility] CenterIn the event this information is protected by the Federal Confidentiality of Alcohol and Drug Abuse Patient Records regulations: The Federal rules restrict any use of the information to criminally investigate or prosecute any alcohol or drug abuse patient.[facility] CenterIn the event this information is protected by the Federal Confidentiality of Alcohol and Drug Abuse Patient Records regulations: The Federal rules restrict any use of the information to criminally investigate or prosecute any alcohol or drug abuse patient.[facility] CenterIn the event this information is protected by the Federal Confidentiality of Alcohol and Drug Abuse Patient Records regulations: The Federal rules restrict any use of the information to criminally investigate or prosecute any alcohol or drug abuse patient.[facility] CenterIn the event this information is protected by the Federal Confidentiality of Alcohol and Drug Abuse Patient Records regulations: The Federal rules restrict any use of the information to criminally investigate or prosecute any alcohol or drug abuse patient.[facility] CenterIn the event this information is protected by the Federal Confidentiality of Alcohol and Drug Abuse Patient Records regulations: The Federal rules restrict any use of the information to criminally investigate or prosecute any alcohol or drug abuse patient.[facility] CenterIn the event this information is protected by the Federal Confidentiality of Alcohol and Drug Abuse Patient Records regulations: The Federal rules restrict any use of the information to criminally investigate or prosecute any alcohol or drug abuse patient.[facility] CenterIn the event this information is protected by the Federal Confidentiality of Alcohol and Drug Abuse Patient Records regulations: The Federal rules restrict any use of the information to criminally investigate or prosecute any alcohol or drug abuse patient.[facility] CenterIn the event this information is protected by the Federal Confidentiality of Alcohol and Drug Abuse Patient Records regulations: The Federal rules restrict any use of the information to criminally investigate or prosecute any alcohol or drug abuse patient.[facility] CenterIn the event this information is protected by the Federal Confidentiality of Alcohol and Drug Abuse Patient Records regulations: The Federal rules restrict any use of the information to criminally investigate or prosecute any alcohol or drug abuse patient.[facility] CenterIn the event this information is protected by the Federal Confidentiality of Alcohol and Drug Abuse Patient Records regulations: The Federal rules restrict any use of the information to criminally investigate or prosecute any alcohol or drug abuse patient.[facility] CenterIn the event this information is protected by the Federal Confidentiality of Alcohol and Drug Abuse Patient Records regulations: The Federal rules restrict any use of the information to criminally investigate or prosecute any alcohol or drug abuse patient.[facility] CenterIn the event this information is protected by the Federal Confidentiality of Alcohol and Drug Abuse Patient Records regulations: The Federal rules restrict any use of the information to criminally investigate or prosecute any alcohol or drug abuse patient.[facility] CenterIn the event this information is protected by the Federal Confidentiality of Alcohol and Drug Abuse Patient Records regulations: The Federal rules restrict any use of the information to criminally investigate or prosecute any alcohol or drug abuse patient.[facility] CenterIn the event this information is protected by the Federal Confidentiality of Alcohol and Drug Abuse Patient Records regulations: The Federal rules restrict any use of the information to criminally investigate or prosecute any alcohol or drug abuse patient.[facility] Center[facility] the event this information is protected by the Federal Confidentiality of Alcohol and Drug Abuse Patient Records regulations: The Federal rules restrict any use of the information to criminally investigate or prosecute any alcohol or drug abuse patient.[facility] Center[facility] the event this information is protected by the Federal Confidentiality of Alcohol and Drug Abuse Patient Records regulations: The Federal rules restrict any use of the information to criminally investigate or prosecute any alcohol or drug abuse patient.[facility] Center[facility] the event this information is protected by the Federal Confidentiality of Alcohol and Drug Abuse Patient Records regulations: The Federal rules restrict any use of the information to criminally investigate or prosecute any alcohol or drug abuse patient.[facility] CenterIn the event this information is protected by the Federal Confidentiality of Alcohol and Drug Abuse Patient Records regulations: The Federal rules restrict any use of the information to criminally investigate or prosecute any alcohol or drug abuse patient.[facility] CenterIn the event this information is protected by the Federal Confidentiality of Alcohol and Drug Abuse Patient Records regulations: The Federal rules restrict any use of the information to criminally investigate or prosecute any alcohol or drug abuse patient.[facility] CenterIn the event this information is protected by the Federal Confidentiality of Alcohol and Drug Abuse Patient Records regulations: The Federal rules restrict any use of the information to criminally investigate or prosecute any alcohol or drug abuse patient.[facility] CenterIn the event this information is protected by the Federal Confidentiality of Alcohol and Drug Abuse Patient Records regulations: The Federal rules restrict any use of the information to criminally investigate or prosecute any alcohol or drug abuse patient.[facility] CenterIn the event this information is protected by the Federal Confidentiality of Alcohol and Drug Abuse Patient Records regulations: The Federal rules restrict any use of the information to criminally investigate or prosecute any alcohol or drug abuse patient.[facility] CenterIn the event this information is protected by the Federal Confidentiality of Alcohol and Drug Abuse Patient Records regulations: The Federal rules restrict any use of the information to criminally investigate or prosecute any alcohol or drug abuse patient.[facility] CenterIn the event this information is protected by the Federal Confidentiality of Alcohol and Drug Abuse Patient Records regulations: The Federal rules restrict any use of the information to criminally investigate or prosecute any alcohol or drug abuse patient.[facility] CenterIn the event this information is protected by the Federal Confidentiality of Alcohol and Drug Abuse Patient Records regulations: The Federal rules restrict any use of the information to criminally investigate or prosecute any alcohol or drug abuse patient.[facility] Reason for Visit (unrecogniz ed section and content) Reason Comments New Patient Reason Comments Follow Up Reason Comments Orders Plaquenil Reason Comments Refill Request Reason Onset Date Comments Refill Request 03/07/2023 Reason Onset Date Comments Refill Request 04/13/2023 Reason Comments TRIAGE Reason Comments Headache Specialty Diagnoses / Procedures Referred By Tati t Referred To Contact Diagnoses Brain mass Procedures CONSULT TO HEADACHE CLINIC OFFICE/OUTPATIENT NEW HIGH MDM 60-74 MINUTES Montse Lou DO, PhD [address] [place] [address] Referral ID Status Reason Start Date Expiration Date V isits Requested Visits Authorized [id number] Closed PCP Requested Referral 06/01/2023 05/31/2024 1 [...] 01/27/2024 Specialty Diagnoses / Procedures Referred By Tati gonzalez Referred To Contact CT IMAGING Diagnoses 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) Procedures CT BRAIN STEREOLOCAL WO IVCON CT GUIDANCE STEREOTACTIC LOCALIZATION Erik Pineda MD [address] [place] [address] Ct [facility] [place] [address] Referral ID Status Reason Start Date Expiration Date V isits Requested Visits Authorized [id number] Closed Auto-Generate d Referral 01/19/2024 02/17/2025 1 1 Specialty Diagnoses / Procedures Referred By Tati gonzalez Referred To Contact MR IMAGING Diagnoses Benign neoplasm of meninges (HCC) Procedures MRI SKULL BASE WO/W IVCON MRI BRAIN BRAIN STEM W/O W/CONTRAST MATERIAL Erik Pineda MD [address] [place] [id number] Mr [facility] [place] [address] Referral ID Status Reason Start Date Expiration Date V isits Requested Visits Authorized [id number] Closed Auto-Generate d Referral 01/19/2024 02/17/2025 1 1 Reason Comments Appointment Reason Comments Established Patient Pre op consent Reason Comments Daily Headache Reason Comments epidural steroid injection Reason Comments Insurance Authorization Aurelio VIVEK - Medicare / [employer]. Reason Onset [...] Gonzalez MD Primary Care Provider, Attending Pr luis Active Perinatal Tech Relationship Specialty Start Date End Date Sammie Gonzalez MD [address] [place] [address] Referring Family Practice 01/14/21 Team Status: Inactive Member Role Status Dates Sammie Gonzalez MD Primary Care Provider Active Elyssa Gomes MD Attending Provider Active Team Status: Inactive Member Role Status Dates Sammie Gonzalez MD Primary Care Provider Active Gunner Cummings DPM MS Attending Provider Active Perinatal Tech Relationship Specialty Start Date End Date Sammie Gonzalez MD [address] [place] [phone] Referring Family Medicine 01/14/21 Perinatal Tech Relationship Specialty Start Date End Date Sammie Gonzalez MD [address] [place] [phone] Referring Family Medicine 01/14/21 Perinatal Tech Relationship Specialty Start Date End Date Sammie Gonzalez MD Referring Family Medicine 01/14/21 Perinatal Tech Relationship Specialty Start Date End Date Sammie Gonzaelz MD Referring Family Medicine 01/14/21 Perinatal Tech Relationship Specialty Start Date End Date Sammie Gonzalez MD Referring Family Medicine 01/14/21 Perinatal Tech Relationship Specialty Start Date End Date Sammie Gonzalez MD Referring Family Medicine 01/14/21 Perinatal Tech Relationship Specialty Start Date End Date Sammie Gonzalez MD Referring Family Medicine 01/14/21 Team Status: Inactive Member Role Status Dates Sammie Gonzalez MD Primary Care Provider Active Zeinab Mckinney ([facility]) , HOME CARE ADMINISTRATOR Attending Provider Active Perinatal Tech Relationship Specialty Start Date End Date Sammie Gonzalez MD [address] [place] [address] PCP - General Family Medicine 05/12/23 Sammie Gonzalez MD Referring Family Medicine 01/14/21 Sammie Gonzalez MD [address] [facility] [place] [address] Referring Family Medicine 05/12/23 Perinatal Tech Relationship Specialty Start Date End Date Sammie Gonzalez MD [address] [facility] [place] [address] PCP - General Family Medicine 05/12/23 Sammie Gonzalez MD Referring Family Medicine 01/14/21 Sammie Gonzalez MD [address] [facility] [place] [address] Referring Family Medicine 05/12/23 Perinatal Tech Relationship Specialty Start Date End Date Sammie Gonzalez MD [address] [facility] [place] [address] PCP - General Family Medicine 05/12/23 Sammie Gonzalez MD Referring Family Medicine 01/14/21 Sammie Gonzalez MD [address] [facility] [place] [address] Referring Family Medicine 05/12/23 Perinatal Tech Relationship Specialty Start Date End Date Sammie Gonzalez MD [address] [facility] [place] [address] PCP - General Family Medicine 05/12/23 Sammie Gonzalez MD Referring Family Medicine 01/14/21 Sammie Gonzalez MD [address] [facility] [place] [address] Referring Family Medicine 05/12/23 Perinatal Tech Relationship Specialty Start Date End Date Sammie Gonzalez MD [address] [facility] [place] [address] PCP - General Family Medicine 05/12/23 Sammie Gonzalez MD Referring Family Medicine 01/14/21 Sammie Gonzalez MD [address] [facility] [place] [address] Referring Family Medicine 05/12/23 Perinatal Tech Relationship Specialty Start Date End Date Sammie Gonzalez MD [address] [place] [facility] [place] [address] PCP - General Family Medicine 05/12/23 Sammie Gonzalez MD Referring Family Medicine 01/14/21 Sammie Gonzalez MD [address] [place] [facility] [place] [address] Referring Family Medicine 05/12/23 Perinatal Tech Relationship Specialty Start Date End Date Sammie Gonzalez MD [address] [place] [facility] [place] [address] PCP - General Family Medicine 05/12/23 Sammie Gonzalez MD Referring Family Medicine 01/14/21 Sammie Gonzalez MD [address] [place] [facility] [place] [address] Referring Family Medicine 05/12/23 Perinatal Tech Relationship Specialty Start Date End Date Sammie Gonzaelz MD [address] [place] [facility] [place] [address] PCP - General Family Medicine 05/12/23 Sammie Gonzalez MD Referring Family Medicine 01/14/21 Sammie Gonzalez MD [address] [place] [facility] [place] [address] Referring Family Medicine 05/12/23 Perinatal Tech Relationship Specialty Start Date End Date Sammie Gonzalez MD [address] [place] [phone] PCP - General Family Medicine 05/12/23 Sammie Gonzalez MD Referring Family Medicine 01/14/21 Sammie Gonzalez MD [address] [place] [address] Referring Family Medicine 05/12/23 Team Status: Inactive [...] January 08, 2024 End: January 08, 2024 Perinatal Tech Relationship Specialty Start Date End Date Sammie Gonzalez MD [address] [place] [address] PCP - General Family Medicine 05/12/23 Sammie Gonzalez MD Referring Family Medicine 01/14/21 Sammie Gonzalez MD [address] [place] [address] Referring Family [facility] 05/12/23 Perinatal Tech Relationship Specialty Start Date End Date Sammie Gonzalez MD [address] [place] [address] PCP - General Family Medicine 05/12/23 Sammie Gonzalez MD Referring Family Medicine 01/14/21 Sammie Gonzalez MD [address] [place] [address] Referring Family Medicine 05/12/23 Perinatal Tech Relationship Specialty Start Date End Date Sammie Gonzalez MD [address] [place] [address] PCP - General Family Medicine 05/12/23 Sammie Gonzalez MD Referring Family Medicine 01/14/21 Sammie Gonzalez MD [address] [place] [address] Referring Family Medicine 05/12/23 Team Status: Inactive Member Role Status Dates Sammie Gonzlaez MD Primary Care Provider Active Start: January 26, 2024 End: January 26, 2024 Beti Bowles NP-C Attending Provider Active Start: January 26, 2024 [...] March 04, 2024 End: March 04, 2024 Perinatal Tech Relationship Specialty Start Date End Date Sammie Gonzalez MD [address] [place] [address] PCP - General Family Medicine 05/12/23 Sammie Gonzalez MD Referring Family Medicine 01/14/21 Sammie Gonzalez MD [address] [place] [address] Referring Family Medicine 05/12/23 Perinatal Tech Relationship Specialty Start Date End Date Sammie Gonzalez MD [address] [place] [address] PCP - General Family Medicine 05/12/23 Sammie Gonzalez MD Referring Family Medicine 01/14/21 Sammie Gonzalez MD [address] [place] [address] Referring Family Medicine 05/12/23 Perinatal Tech Relationship Specialty Start Date End Date Sammie Gonzalez MD [address] [place] [address] PCP - General Family Medicine 05/12/23 Sammie Gonzalez MD Referring Family Medicine 01/14/21 Sammie Gonzalez MD [address] [place] [address] Referring Family Medicine 05/12/23 Team Status: Inactive Member Role Status Dates Sammie Gonzalez MD Primary Care Provide r, Attending Provider Active Start: May 12, 2024 End: May 12, 2024 Perinatal Tech Relationship Specialty Start Date End Date Sammie Gonzalez MD [address] [place] [address] PCP - General Family Medicine 05/12/23 Sammie Gonzalez MD Referring Family Medicine 01/14/21 Sammie Gonzalez MD [address] [place] [address] Referring Family Medicine 05/12/23 Perinatal Tech Relationship Specialty Start Date End Date Sammie Gonzalez MD [address] [place] [address] PCP - General Family Medicine 05/12/23 Sammie Gonzalez MD Referring Family Medicine 01/14/21 Sammie Gonzalez MD [address] [place] [address] Referring Family Medicine 05/12/23 Team Status: Inactive Member Role Status Dates Sammie Gonzalez MD Primary Care Provider Active Start: June 21, 2024 End: June 21, 2024 Elyssa Gomes MD Attending Provider Active Start: June 21, 2024 End: June 21, 2024 Team Status: Inactive Member Role Status Dates Sammie Gonzalez MD Primary Care Provide r, Attending Provider Active Start: June 22, 2024 End: June 22, 2024 Goals (unrecognized section and content) Goals may [...] BE BASED ON THE PRIMARY CLINICAL RECORDS. [facility] [employer] [facility] provides no warranty or guarantee of the accuracy or completeness of information in this document.
[2024-07-04 07:08] VITALS: BP 129/80; PULSE 98; TEMP 36.3; O2SAT 99
[2024-07-04 07:11] LABS: Glucometer 100 mg/dL (74-106)
[2024-07-04 07:35] VITALS: BP 130/61; PULSE 90; O2SAT 95
[2024-07-04] MEDS: BUPIVACAINE HCL 0.25% PF 25 MG/10 ML VIAL INJ (07:35)
[2024-07-04] MEDS: LIDOCAINE HCL 2% 400 MG/20 ML MDV 15 ML INJ (07:35)
[2024-07-04 07:37] VITALS: BP 125/58; PULSE 91; O2SAT 94
--- NOTE | 2024-07-04 07:39 | W.PM.PROCNOT ---
Date of procedure: 07/04/24 Pre-op diagnosis: Pain due to cervical spondylosis without myelopathy Post-op diagnosis: same as pre-op Procedure: Procedure: Bilateral C4-5, 5-6 medial branch block Medications: Bupivacaine 0.25% 6cc The patient was seen and examined in the preoperative holding area.? The informed consent was obtained and placed on the chart.? The patient was brought to the medical procedure unit and placed in the prone position.? A timeout was completed verifying correct patient, procedure site, positioning, plan, and special equipment.? Using aseptic technique, the needle was placed at left C4.? Under direct fluoroscopic visualization, a Quincke tip needle was advanced to the midpoint of the waist of the articular pillar at the respective medial branch segment. The above-mentioned injectate was placed in a 1 mL aliquot proceeded by negative aspiration.? The needle was removed.? The procedure was completed at all left C5, 6. The same procedure, at the same levels, was then completed on the right side. Insertion site was covered.? Patient was taken to the postprocedural recovery area and monitored for an appropriate length of time before found suitable for discharge in the accompaniment of a responsible adult.? Anesthesia: Local Surgeon: Ridge Hollingsworth Pathology: none sent Condition: stable Disposition: no change
== END 2024-07-04 07:44 | disposition home or self-care (01) ==
LOC: SURGOUT 06:54
PROVIDERS: PCP Family Medicine; Visit Provider Anesthesiology
DX: M47.812 Spondylosis without myelopathy or radiculopathy, cervical region (principal)
CPT/HCPCS: 36415; 64490; 64491; 82948; J0665

== ENCOUNTER 2024-07-07 14:01 | Outpatient (OUT) | payer MEDICARE, MEDICAID, SELFPAY ==
--- NOTE | 2024-07-07 14:24 | P.CN_ITS ---
Consult Note: HPI Data of Consult Patient: known to practice within the last 3 years Consult date: 03/07/24 Requesting Physician: Chantal Ocampo NP Primary Care Provider: Jesus Camacho MD Consult Narrative Reason for consult: chronic neck pain Narrative: 48yof who presents for evaluation. longstanding neck pain. recently evaluated by back surgeon, who recommended injection therapy prior to surgical intervention. imaging reviewed, which is significant for moderate to severe stenosis at l5-s1, as well as cervical spondylosis and moderate to severe foraminal narrowing at multiple cervical levels, worst at c6-7. she has engaged in a series of provider directed home exercises >6 weeks without lasting benefit. uses ibuprofen as needed. denies adverse med side effects. recently underwent bilateral C4-5 C5-6 facet medial branch block #1 and #2 with 90% improvement in pain and functional ability immediately following and hours after the procedure, postop pain 0/10 for 4 hours following the procedure. 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 - 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], unspecified hand (ICD-10) History of smoking ?Z87.891 - Personal history of nicotine dependence (ICD-10) Carpal tunnel syndrome ?G56.00 - Carpal tunnel syndrome, unspecified upper limb (ICD-10) Obesity ?E66.9 - Obesity, unspecified (ICD-10) Anemia ?D64.9 - Anemia, unspecified (ICD-10) Anxiety ?F41.9 - Anxiety disorder, unspecified (ICD-10) Acid reflux ?K21.9 - Gastro-esophageal reflux disease without esophagitis (ICD-10) Diabetes 1.5, managed as type 2 ?E13.9 - Other specified diabetes mellitus without complications (ICD-10) Hypertension ?I10 - Essential (primary) hypertension (ICD-10) High cholesterol ?E78.00 - Pure hypercholesterolemia, unspecified (ICD-10) Surgical History H/O resection of rib ?Z98.890 - Other specified postprocedural states (ICD-10) History of surgery on arm ?Z98.890 - Other specified postprocedural states (ICD-10) H/O breast biopsy ?Z98.890 - Other specified postprocedural states (ICD-10) History of carpal tunnel surgery ?Z98.890 - Other specified postprocedural states (ICD-10) History of appendectomy ?Z90.49 - Acquired absence of other specified parts of digestive tract (ICD- 10) Meds Home Medications and Allergies Home Medications ?Medication ?Instructions ?Recorded ?Confirmed ?Type brexpiprazole 2 mg tablet (Rexulti) 2 mg PO DAILY 02/17/23 07/04/24 History dapagliflozin propanediol 5 mg 5 mg PO DAILY 02/17/23 07/04/24 History tablet (Farxiga) duloxetine 30 mg capsule,delayed 30 mg PO DAILY 02/17/23 07/04/24 History release glycopyrrolate 1 mg tablet 1 mg PO Q8H PRN secretions 02/17/23 07/04/24 History hydroxychloroquine 200 mg tablet 200 mg PO BID 02/17/23 07/04/24 History ibuprofen 800 mg tablet 800 mg PO Q6H PRN fever or pain 02/17/23 07/04/24 History ipratropium 0.5 mg-albuterol 3 mg 3 ml inhalation Q6H PRN shortness 02/17/23 07/04/24 History (2.5 mg base)/3 mL nebulization of breath soln lamotrigine 200 mg tablet 200 mg PO Q8H 02/17/23 07/04/24 History lisinopril 10 mg tablet 10 mg PO DAILY 02/17/23 07/04/24 History lubiprostone 24 mcg capsule 24 mcg PO BID 02/17/23 07/04/24 History metformin 500 mg tablet 1,000 mg PO BID 02/17/23 07/04/24 History ondansetron HCl 4 mg tablet 4 mg PO Q8H PRN nausea and vomiting 02/17/23 07/04/24 History pioglitazone 15 mg tablet 15 mg PO DAILY 02/17/23 07/04/24 History simvastatin 20 mg tablet 20 mg PO DAILY 02/17/23 07/04/24 History vilazodone 40 mg tablet (Viibryd) 40 mg PO DAILY 02/17/23 07/04/24 History budesonide 1 mg/2 mL suspension 1 mg inhalation DAILY 03/08/24 07/04/24 History for nebulization (Pulmicort) dexlansoprazole 60 mg 60 mg PO DAILY 03/08/24 07/04/24 History capsule,biphase delayed release (Dexilant) etodolac 400 mg tablet (Lodine) 400 mg PO Q12H PRN pain 03/08/24 07/04/24 History nortriptyline 25 mg capsule 25 mg PO DAILY 03/08/24 07/04/24 History methocarbamol 500 mg tablet mg 07/04/24 History mirabegron 25 mg tablet,extended mg PO 07/04/24 History release 24 hr (Myrbetriq) Allergies Allergy/AdvReac Type Severity Reaction Status Date / Time No Known Drug Allergies Allergy Verified 07/04/24 07:11 Exam Constitutional Documenting provider has reviewed patient's vital signs: yes Common normals: no apparent distress, oriented x3, healthy appearing, alert and well nourished General appearance: cooperative HENGA Common normals: normocephalic, hearing grossly normal bilaterally and moist oral mucous membranes Head and scalp: normocephalic Eye Common normals: PERRL Pupil: PERRL Neck & C-Spine Common normals: full ROM General: normal visual inspection Cervical spine: pain with cervical ROM and cervical spine tenderness; no paracervical muscle tenderness, no paracervical muscle spasm and no trapezius muscle tenderness Other: facet loading to C2-5 facets, left greater than right no tenderness over bilateral occipital nerves negative spurlings strength 5/5 in BUE Chest Common normals: inspection of chest normal Respiratory Common normals: normal respiratory effort, no retractions and no use of accessory muscles Back & Pelvis Lumbar spine/lower back: normal to inspection, lumbar ROM normal and straight leg raise negative bilaterally Sacroiliac joints: SI joints normal Other: sensation intact BLE strength 5/5 in BLE Extremity Common normals: normal to inspection and full ROM Neuro Common normals: oriented x3, CN's II-XII intact bilaterally, moves all extremities, no focal motor deficits, no sensory deficits noted and deep tendon reflexes 2+ bilaterally Sensorium/orientation: alert Motor exam: strength 5/5 throughout and no movement abnormalities noted Psych Common normals: mental status grossly normal, thought process normal, cooperative, affect normal, speech normal and activity/motor behavior normal Speech: normal speech Thought process: normal thought process Results Additional Findings Additional findings: If on a controlled substance or opioids, I have checked an [place] report on this patient and there are no aberrancies noted in the prescribing history.??If on a controlled substance or opioid a drug screen was completed and reviewed within the last year, and if there has not been a drug screen completed we ordered one today to monitor higher risk, state monitored pain medication use. As part of providing excellent, safe, comprehensive care, the following was completed at our patient's visit: 1. A medication reconciliation and review to ensure accurate knowledge of current/active medications, including asking our patients to inform us about any [id number] medications or herbal remedies/nutritional supplements/alternative remedies. 2. A review to specifically ensure our patients have had annual screening for screening for depression, screening for tobacco use, and screening for unhealthy alcohol use. For concerning screenings had a discussion with the patient, provided patient education, and recommended follow-up with primary care provider when appropriate. If patient noted with a risk of falling, they received education on strength, gait, and balance training to prevent future risk of falling. Assessment and Plan Assessment and Plan (1) Cervical spondylosis: Assessment and Plan: The patient has had over 3 months of moderate to severe neck pain with functional impairment and inadequate response to conservative care including NSAIDS (unless there are contraindication such as concurrent blood thinners), multiple oral or topical pain medications, and home exercise program/physical therapy.? Patient has completed >6 weeks of guided home exercise program and/or formal physical therapy program without relief of their symptoms.? I have reviewed the imaging of the cervical spine and no red flags were identified.? The imaging reveals radiographic findings consistent with cervical spondylosis We discussed the risks and benefits of the procedure with the patient, and we are NOT planning on using sedation as outlined in the guidelines from Medicare unless there is a documented reason that sedation would be strongly recommended.??The procedure will be completed with fluoroscopic guidance.? Plan proceed with left then right C4-5 C5-6 facet joint RFA under fluoroscopy continue current medications f/u 1 month after RFA complete
== END 2024-07-07 14:02 | disposition home or self-care (01) ==
LOC: PM 14:01
PROVIDERS: PCP Family Medicine; Visit Provider Nurse Practitioner
DX: M47.812 Spondylosis without myelopathy or radiculopathy, cervical region (principal)
CPT/HCPCS: G0463

== ENCOUNTER 2024-07-18 07:45 | Day surgery (SDC) | payer MEDICARE, MEDICAID, SELFPAY ==
--- OUTSIDE RECORDS SUMMARY | 2024-07-18 07:51 | XMS_ITS | CCD ---
Author Organization [facility] Care Team Providers Care Field Professional Name Role Phone PHYSICIAN, DEFAULT Unavailable Unavailable PHYSICIAN, DEFAULT Unavailable Unavailable Sammie Gonzalez MD Unavailable Beti Bowles Unavailable Elyssa Gomes Unavailable MD Sammie Gonzalez Primary Care Provider HUMAIRA Cummings Attending Provider [phone] MD Sammie Gonzalez Attending Provider MD Elyssa [...] MD Sammie Gonzalez Primary Care Provider MD Russell Shields Attending Provider MD Sammie Gonzalez Attending Provider Hank ([facility])MARILEE Attending Provider Sammie Gonzalez MD Unavailable Sammie Gonzalez MD Primary Care Provider Sammie Gonzalez MD Unavailable Sammie Gonzalez MD Primary Care Provider [phone] Sammie Gonzalez MD Primary Care Provider MD Sammie Gonzalez Primary Care Provider [phone] MD Sammie Gonzalez Attending Provider [phone] MD Zeinab Wood Attending Provider PINEDA, ERIK F Referring Unavailable HOY, SAMMIE M Primary Care Unavailable PINEDA, ERIK F Referring Unavailable HOY, SAMMIE M Primary Care Unavailable MD Sammie Gonzalez Primary Care Provider [phone] MD Sammie Gonzalez Attending Provider [phone] MD Sammie Gonzalez Primary Care Provider [phone] MD Sammie Gonzalez Attending Provider [phone] HOY, SAMMIE M Primary Care Unavailable ZEINAB WOOD Attending Unavailable HOY, SAMMIE M Primary Care Unavailable RACHELE FENTON Attending Unavailable ZEINAB WOOD Attending Unavailable HOY, SAMMIE M Primary Care Unavailable JOSE LOUN Referring Unavailable PINEDA, ERIK Attending Unavailable HOY, SAMMIE M Primary Care Unavailable MONTSE LOU Referring Unavailable FAHAD LUONG Attending Unavailable HOY, SAMMIE M Primary Care Unavailable LOUJOSEN Referring Unavailable MONTSE LOU Attending Unavailable HOY, SAMMIE M Primary Care Unavailable HOY, SAMMIE M Primary Care Unavailable MD Sammie Gonzalez Primary Care Provider [phone] MD Sammie Gonzalez Attending Provider Sammie Gonzalez Admitting Unavailable Hoy, Sammie M Attending Unavailable Hoy, Sammie M Primary Care Unavailable Zeinab Wood Admitting Unavailable Zeinab Wood Attending Unavailable Sammie Gonzalez M Primary Care Unavailable Hoy, Sammie M Admitting Unavailable Hoy, Sammie M Attending Unavailable Hoy, Sammie M Primary Care Unavailable Hoy, Sammie M Admitting Unavailable Hoy, Sammie M Attending Unavailable Hoy, Sammie M Primary Care Unavailable Hoy, Sammie M Admitting Unavailable Hoy, Sammie M Attending Unavailable Hoy, Sammie M Primary Care Unavailable Hoy, Sammie M Admitting Unavailable Hoy, Sammie M Attending Unavailable Janice, Sammie M Primary Care Unavailable Gigeorgianaitis , Andnestor Garcia Attending Unavailable Giedraitis , Andrius Garcia Attending Unavailable Giedraitis , Andrius Garcia Attending Unavailable Giedemilee MCGHEE, Andrius Garcai Attending Unavailable Giliz MCGHEE, Andrius Garcia Attending Unavailable Janice MCGHEE, Sammie Langston Primary Care Provider [phone] WANDY PHILLIPS Attending Unavailable YOLA CARABALLO Attending Unavailable ESTEVAN POLANCO Attending Unavailable Medications Current Medications Medication Drug Class(es) [...] 02/18/2021 06/30/2023 Discontinued (Course of therapy completed) take 1 tablet by adrian th four times daily as needed for headache nmhmziltjy-jetvwtcvfqgwb-ivnxeojj 50-325-40 MG tablet TAKE 1 TABLET BY MOUTH FOUR TIMES DAILY NEEDED FOR HEADACHE Oral for 15 Active End: 06-26-2023 acetaminophen 325 mg-caffein e 40 [...] inhalation solution (20 sources) Anticholinergic, beta2-Adrenergic Agonist Start: 03-10-2023 ipratropium-albuterol (Duo-Neb) 0.5-2.5 mg/3 mL nebulizer solution USE 1 VIAL USING NEBULIZER 4 TIMES A DAY 03/10/2023 Active ipratropium-albu terol (DUONEB) 0.5 mg-3 mg(2.5 mg base)/3 mL nebu Active take 3 mL by inhalat ion every six hours as needed Ipratropium-Albuterol 0.5-2.5 (3) MG/3ML 3 ml as needed Inhalation every 6 hrs Active amoxicillin 875 mg / clavulanate 125 mg oral tablet (20 sources) Penicillin-class Antibacterial Start: 07-13-2024 End: 07-23-2024 take 1 tablet by mouth in the morning amoxicillin-clavulanate (Augmentin) 875-125 MG tablet Indications: Tooth infection Take 1 tablet (875 mg) by mouth in the morning and 1 tablet (875 mg) before bedtime. Do all this for 10 days. 20 tablet 07/13/2024 07/23/2024 Active Start: 05-16-2019 End: 09-11-2020 take 1 tablet [...] 09, 2017 1:00am October 28, 2018 12:18pm aspirin 325 mg oral tablet (20 sources) [...] day Active benzonatate (TAYLOR SALON PERLES ORAL) Blood Glucose Monitoring Suppl (True Metrix Meter) w/Device kit (2 sources) Start: 03-10-2023 Blood Glucose Monitoring Suppl (True Metrix Meter) w/Device kit USE TO TEST BLOOD SUGAR EVERY DAY 03/10/2023 Active brexpiprazole 2 mg oral tablet (20 sources) Atypical Antipsychotic Start: 10-28-2018 take 1 tablet by mouth once daily REXULTI 2 mg tablet Take 2 mg by mouth once daily. 0 02/16/2021 Active Comment on above: Take 2 mg by mouth o nce daily. budesonide 0.5 mg/ml inhalation suspension (20 sources) Corticosteroid Start: 09-11-2020 End: 06-26-2023 take 1 dose by inhalation once budesonide (Pulmicort) 1 MG/2ML nebulizer solution INHALE ONE VIAL ONCE DAILY PER NEBULIZER 03/14/2023 Active take 4 mL by inhalation four [...] Take 1 capsule by mouth twice daily. 0 02/16/2021 Active dexlansoprazole (Dexilant) [address] capsule 1 capsule 1 (one) time each day at the same time. Active Comment on above: Take 1 capsule by [facility] twice daily. Dexlansoprazole (Dexilant) 60 mg capsule,biphase delayed releas (17 sources) Start: 10-10-19 take 1 capsule by mouth twice daily Dexlansoprazole (Dexilant) 60 mg capsule,biphase delayed releas Active 60 MG PO Twice daily October 10, 2021 12:00am Start: 10-10-2021 take 1 capsule by [facility] twice daily Dexlansoprazole (Dexilant) 60 mg capsule,biphase delayed releas Active 60 MG PO Twice daily October 10, 2021 1:00am diclofenac sodium 75 mg delayed release oral tablet (17 sources) Nonsteroidal Anti-inflammatory Drug Start: 01-27-2020 End: 06-26-2023 take 1 tablet by mouth in the morning diclofenac (Voltaren) 75 MG EC tablet Take 75 mg by mouth in the morning and 75 mg before bedtime. 08/01/2022 Active Comment on above: Take 75 mg by mouth twice daily. docusate sodium 50 mg / sennosides, mcc 8.6 mg oral tablet (1 source) take 1 tablet by mouth every twelve hours Senokot S 8.6-50 MG 1 tablet as needed Orally Twice a day Active doxepin hydrochloride 10 mg oral capsule (20 sources) Tricyclic Antidepressant Start: 10-28-2018 take 10 mg by mouth three times daily Doxepin Active 10 MG PO Three times daily October 28, 2018 1:00am take 1 capsule by mo uth every twenty-four hours Doxepin HCl 10 MG [...] Comment on above: Take 1 capsule by [facility] once daily. TAKE 1 CAPSULE BY [facility] EVERY DAY etodolac 400 mg oral tablet [...] Daily October 28, 2018 1:00am End: 06-26-2023 take 1 tablet by mouth once daily, then take 1 tablet by mouth twice daily glycopyrrolate (Robinul) 1 MG tablet TAKE 1 TABLET BY MOUTH EVERY DAY x2 weeks, then increase to 1 (ONE) tablet TWICE DAILY Oral for 30 Active Comment on above: Take 2 mg by mouth t wice daily. hydroCHLOROthiazide 25 mg oral tablet (20 sources) Thiazide Diuretic Star t: 08-15 End: 06-14 23 take 1 tablet by mouth in the morning hydroCHLOROthiazide (HYDRODiuril) 25 MG tablet Take 25 mg by mouth in the morning. 09/08/2022 Active Comment on above: Take 25 mg by mouth once daily. hydroxychloroquine sulfate 200 mg oral tablet (20 sources) Antimalarial, Antirheumatic Agent Star t: 06-15 End: 05-15 take 1 tablet by mouth twice daily hydrOXYchloroQUINE (PLAQUENIL) 200 mg tablet take 1 tablet by mouth twice daily 60 tablet 3 11/30/2023 Active Comment on above: Take 1 tablet by adrian twice daily. TAKE 1 TABLET BY ADRIAN TWICE DAILY Take 1 tablet by adrian two times a day. ipratropium bromide 0.2 mg/ml inhalation solution (17 sources) Anticholinergic Star t: 08-15 take 0.5 mg by inhalation every six hours Ipratropium [place] Active 0.5 MG INHALATION Q6H September 11, [...] 2017 1:00am take 1 tablet by adrian every twenty-four hours lamoTRIgine 200 MG 1 tablet on the tongue and allow to dissolve Orally Once a day Active Comment on above: TAKE 3 TABLETS EVERY DAY levothyroxine sodium 0.05 mg oral tablet (3 sources) l-Thyroxine Start: 05-17-20 24 levothyroxine (Synthroid, Levoxyl) 50 MCG tablet 1 (one) time each day at the same time 05/17/2024 Active lisinopril 10 mg oral tablet (19 sources) Angiotensin Converting Enzyme Inhibitor Start: 09-11-20 20 take 1 tablet by mouth in the morning lisinopril 10 MG tablet Take 10 mg by mouth in the morning. 03/09/2023 Active lubiprostone 0.024 mg oral capsule (20 sources) Chloride Channel Activator Start: 02-17-20 21 take 1 capsule by mouth twice daily AMITIZA 24 mcg capsule Take 24 mcg by mouth twice daily. 02/16/2021 Active Start: 10-28-2018 take 1 capsule by mo [facility] twice daily Lubiprostone (Amitiza) 24 mcg capsule Active 24 MCG PO Twice daily October 28, 2018 12:00am Start: 10-28-2018 take 1 capsule by mo ut twice daily Lubiprostone (Amitiza) 24 mcg capsule Active 24 MCG PO Twice daily October 28, 2018 1:00am take 1 capsule by mo uth twice daily at mealtime Amitiza 24 MCG 1 capsule with food and water Orally Twice a day Active Comment on above: Take 24 mcg by mouth twice daily. metFORMIN hydrochloride 500 mg oral tablet (20 sources) Biguanide Start: 09-12-2017 take 1000 mg by mouth twice daily Metformin Active 1000 MG PO Twice daily September 12, 2017 1:00am take 2 tablets by mouth twice da eleni metFORMIN (Glucophage) 500 MG tablet TAKE 2 TABLETS TWICE DAILY Oral for 30 Active metFORMIN (GLUCO PHAGE) 500 mg tablet Active methocarbamol 500 mg oral tablet (11 sources) Muscle Relaxant Start: 05-26-2024 methocarbamol (Robaxin) 500 MG tablet Take 500 mg by mouth every 12 (twelve) hours if needed 05/26/2024 Active Start: 02-05-2024 End: 05-25-2024 take 1 tablet by mouth twice daily as needed methocarbamol (ROBAXIN) 500 mg tablet Indications: Chronic daily headache Take 1 tablet by mouth two times a day as needed. 45 tablet 2 05/26/2024 Active Metoprolol (14 sources) beta-Adrenergic Meka Toprol X L Active 24 hr mirabegron 25 mg extended release oral tablet (2 sources) beta3-Adrenergic Agonist Start: 06-23-20 take 1 tablet by mouth once daily Myrbetriq 25 MG 24 hr tablet TAKE 1 TABLET BY MOUTH EVERY DAY FOR 30 DAYS 06/23/2024 Active nortriptyline 25 mg oral tablet (20 sources) Tricyclic Antidepressant Start: 11-25-19 Nortriptyline Active 25 MG PO November 25, 2023 12:00am Start: 06-26-2023 End: 02-05-2024 take 1 capsule by mouth once daily at bedtime nortriptyline (PAMELOR) 25 mg capsule Indications: Chronic daily headache Take 1 capsule by mouth daily at bedtime. 90 capsule 3 02/05/2024 Active Comment on above: Take 1 capsule by [facility] daily at bedtime. ondansetron 4 mg oral tablet (19 sources) Serotonin-3 Receptor Antagonist Start: take 1 tablet by mouth every six hours as needed for nausea and vomiting ondansetron (Zofran) 4 MG tablet TAKE 1 TABLET BY MOUTH EVERY 6 HOURS NEEDED FOR NAUSEA AND VOMITING 03/16/2023 Active Start: 10-02-2021 take 4 mg by mouth e very eight hours Ondansetron Active 4 MG PO Q8H October 02, 2021 1:00am pioglitazone 15 mg oral tablet (20 sources) Peroxisome Proliferator Receptor alpha Agonist, Peroxisome Proliferator Receptor gamma Agonist, Thiazolidinedione Start: 10-28-2018 take 1 tablet by mouth once daily Pioglitazone (Actos) 15 mg tablet Active 15 MG PO Daily October 28, 2018 1:00am Start: 09-12-2017 End: 10-09-2017 Pioglitazone Discontinued TA BLET September 12, 2017 1:00am October 09, 2017 10:47pm predniSONE 5 mg oral tablet (20 sources) Start: 12-11-2022 End: 03-25-2024 take 1-2 tablets by mouth once daily predniSONE (DELTASONE) 5 mg tablet 1-2 tabs po qd 60 tablet 3 11/12/2023 Active Start: 11-11-2019 End: 09-11-2020 take 40 mg by mouth once daily Prednisone Discontinued 40 MG PO Daily 10 November 11, 2019 1:00am September 11, 2020 7:28am Start: 12-18-2018 End: 09-11-2020 take 50 mg by mouth once daily at mealtime Prednisone Discontinued 50 MG PO Daily 5 December 18, 2018 12:00am September 11, 2020 7:28am administer with food or milk predniSONE (Delt asone) 10 MG tablet 1 tablet with food or milk Orally Three times a day for 5 days and twice a day for 3 days for 8 days Active Comment on above: 1-2 tabs po qd pregabalin 50 mg oral capsule (7 sources) Start: 06-19-2022 take 1 capsule by mouth in the morning pregabalin (Lyrica) 50 MG capsule Take 50 mg by mouth in the morning and 50 mg before bedtime. 06/19/2022 Active take 1 capsule by [facility] every twenty-four hours Lyrica 100 MG 1 capsule Orally Once a da y Not-Taking promethazine hydrochloride 25 mg oral tablet (2 sources) Phenothiazine Start: 02-17-2023 take 1 tablet by mouth every eight hours as needed promethazine (Phenergan) 25 MG tablet Take 25 mg by mouth every 8 (eight) hours if needed. 02/17/2023 Active raNITIdine 300 mg oral tablet (17 sources) Histamine-2 Receptor Antagonist Start: 09-12-2017 take 300 mg by mouth once daily Ranitidine Hcl Active 300 MG PO Daily September 12, 2017 1:00am roflumilast 0.5 mg oral tablet (20 sources) Phosphodiesterase 4 Inhibitor Start: 09-12-2017 End: 06-26-2023 take 1 tablet by mouth [...] Take 20 mg by mouth once daily. 0 02/16/2021 Active Comment on above: Take 20 [...] tablet 3 02/02/2024 02/05/2024 Discontinued (Side Effects) Start: 04-11-2022 take 2 tablets by mo uth once daily at bedtime tiZANidine (Zanaflex) 4 MG tablet TAKE 2 TABLETS BY MOUTH DAILY AT BEDTIME 04/11/2022 Active Comment on above: Take 1 tablet by adrian th every 8 hours as needed. topiramate 50 mg oral tablet (17 sources) Start: 2 take 1 tablet by mouth once daily Topiramate (Topamax) 50 mg Tablet Active 50 MG PO Daily October 24, 2021 1:00am traMADol hydrochloride 50 mg oral tablet (5 sources) Opioid Agonist Start: 0 take 1 tablet by mouth every four to six hours as needed for pain traMADol HCl 50 MG 1 tablet as needed for pain Orally every 4-6 hours for 7 days prn 16 Jul, 2020 Active divalproex sodium 500 mg delayed release oral tablet (2 sources) Mood Stabilizer, Anti-epileptic Agent Start: 2 take 1 tablet by mouth in the morning divalproex (Depakote) 500 MG EC tablet Take 500 mg by mouth in the morning and 500 mg before bedtime. 07/18/2022 Active vilazodone hydrochloride 40 mg oral tablet (20 sources) Start: 7 take 1 tablet by mouth once daily at mealtime vilazodone (Viibryd) 40 mg tablet TAKE 1 TABLET BY MOUTH EVERY DAY WITH FOOD 06/19/2024 Active Comment on above: Take 40 mg by [...] 1 TAB PO EVERY 4-6 HOURS 10 3 September 18, 2021 October 02, 2021 4:22am amylase 080951 unt / lipase 56021 unt / protease 04060 unt delayed release oral capsule (17 sources) Start: 09-12-2017 End: 10-28-2018 take [id number] capsules by mouth three times daily Dcnygx-Kgrhtifj-Qh ylase (Creon) 24,000-76,000 -120,000 unit capsule,delayed release(DR/EC) Discontinued [...] Comment on above: TAKE 1 TABLET BY ADRIAN TH EVERY DAY FOR 6 DAYS Gel-Syn (20 sources) Start: 03-08-2020 Gel-Syn Feb, [...] MG PO Q6H May 16, 2019 12:00am take 1 tablet by adrian th four times daily ibuprofen 800 MG tablet TAKE 1 TABLET FOUR TIMES DAILY Oral for 30 Active levoFLOXacin 500 mg oral tablet (10 sources) [...] 37.5 mg by mout h once daily. Theraputic Injection (20 sources) Start: 08-11-2017 Theraputic [...] appendicitis; Translations: [Unspecified acute appendicitis] 09-17-2021 Episodic Cataract (2 sources) Nuclear senile cataract; Translations: [Age-related nuclear cataract, unspecified eye] Onset: 3 03-24-2023 Chronic Chronic obstructive pulmonary disease and bronchiectasis (17 sources) Acute exacerbation of chronic obstructive airways disease 11-11-2019 Chronic Diabetes mellitus with complications (20 sources) Secondary diabetes mellitus; Translations: [Other specified diabetes mellitus with diabetic autonomic (poly)neuropathy] Chronic Diabetes mellitus without complication (2 sources) Diabetes mellitus type 2 without retinopathy; Translations: [Type 2 diabetes mellitus without complications] Onset: 3 03-24-2023 Chronic Disorders of lipid metabolism (1 source) Hyperlipidemia, unspecified; Translations: [Hyperlipidemia, unspecified] Onset: Chronic Disorders of teeth and jaw (2 sources) Infection of tooth; Translations: [Periapical abscess without sinus] 07-13-2024 Episodic E Codes: Natural/environment (20 sources) Dog bite [...] [Hemorrhage of anus and rectum] 11-02-2018 Episodic Glaucoma (2 sources) Open angle with borderline findings, low risk, bilateral; Translations: [Open angle with borderline findings, low risk] Onset: 3 03-24-2023 Chronic Headache; including migraine (20 sources) Intractable chronic [...] right shoulder Episodic Other connective tissue disease (6 sources) Biceps tendinitis; Translations: [Bicipital tendinitis, unspecified shoulder] 01-26-2024 Episodic Other connective tissue disease (3 sources) Bicipital tendinitis, unspecified shoulder; Translations: [Bicipital tenosynovitis] 01-26-2024 Episodic Other disorders of stomach and duodenum (17 sources) Disorder of function of stomach; Translations: [Disease of stomach and duodenum, unspecified] 11-02-2018 Episodic Other ear and sense organ disorders (2 sources) Otitis externa; Translations: [Unspecified otitis externa, unspecified ear] Onset: 3 03-24-2023 Chronic Other endocrine disorders (19 sources) Disorder of [...] Other Problems Problem Classification Problem Date Documented Da te Episodic/Chronic Blindness and vision defects (4 sources) Bilateral myopia of eyes; Translations: [Myopia, bilateral] Onset: 03-24-2023 03-24-2023 Episodic Deficiency and other anemia (1 source) Iron [...] Resolved: 06-05-2021 Episodic Other connective tissue disease (4 sources) Fibromyalgia; Translations: [Fibromyalgia] Onset: 03-24-2023 Episodic Other connective tissue disease (1 source) Fibromyalgia; Translations: [Fibromyalgia] Onset: 01-08-2024 Episodic Other gastrointestinal disorders (2 sources) Abdominal bloating; Translations: [Abdominal distension (gaseous)] Onset: 03-25-2023 03-25-2023 Episodic Other lower respiratory disease (2 sources) Rib pain; Translations: [Pleurodynia] Onset: 03-25-2023 03-25-2023 Episodic Other nervous system disorders (1 source) Paresthesia of skin; Translations: [Paresthesia of skin] Onset: 02-09-2024 Episodic Results Test Name Value Interpretation Reference Range Facility Thyrotropin [Units/volume] i n Serum or PlasmaOrdered By: Sammie Gonzalez on 06-22-2024 TSH Qn 2.24 m[IU]/L Normal 0.45-5.33 [facility] Comment on above: Order Comment: PIPER ROBLERO Result Comment: PERF ORMED BY: [facility] [address] [place] [address] PATHOLOGIST CRAFT DEMONSTRATOR MONIK SILVESTRE M.D. Performed By: #### T 4T, T3F, TSH3 ####[address] [place] [address] [facility] Thyroxine (T4) [Mass/volume] in Serum or PlasmaOrdered By: Sammie Gonzalez on 06-22-2024 T4 [Mass/Vol] 11.23 ug/dL Normal 5.39-11.82 [facility] Comment on above: Order Comment: PIPER STEWARTW Performed By: #### T 4T, T3F, TSH3 ####[address] [place] [address] [facility] Triiodothyronine (T3) Freeon 06-22-2024 Triiodothyronine (T3) Free 2.96 pg/mL Normal 2.50-3.90 [facility] Comment on above: Order Comment: PIPER ROBLERO Result Comment: PERF ORMED BY: [facility] [address] [id number] PATHOLOGIST CRAFT DEMONSTRATOR MONIK SILVESTRE M.D. Performed By: #### T 4T, T3F, TSH3 ####[address] [place] [address] [facility] Triiodothyronine (T3) Free [ Mass/volume] in Serum or PlasmaOrdered By: Sammie Gonzalez on 06-22-2024 Free T3 [Mass/Vol] 2.96 pg/mL 2.50-3.90 [facility] CNOVon 05-30-2024 CNOV Office Visit (ISSA ) KOURTNEY NOVAK ([id number]) 1975 F Date Time Provider Department 05/30/24 [...] are p (more content not included)... Normal [facility] A1C with Estimated Average G tanesha 05-12-2024 Glucose [Mass/Vol] 114 mg/dL Normal [facility] Comment on above: Order Comment: PIPER SANTOS. JKW Result Comment: PERF ORMED BY: [place] [address] PATHOLOGIST CRAFT DEMONSTRATOR MONIK SILVESTRE M.D. Performed By: #### V [id number], TSH3, A1C WTH eA, DIFF CBC, [id number], LIPID, FE, CMP, T3F, T4T #### [facility] [address] [place] [address] #### INSULIN #### [facility] , Alanine aminotransferase [En zymatic activity/volume] in Serum or PlasmaOrdered By: Sammie Gonzalez on 05-12-2024 ALT [Catalytic activity/Vol] 17 U/L Normal 7-52 [facility] Comment on above: Order Comment: PIPER SANTOS. JKW Performed By: #### V [id number], TSH3, A1C WTH eA, DIFF CBC, [id number], LIPID, FE, CMP, T3F, T4T #### [facility] [address] [place] [address] [place] #### INSULIN #### [facility] , Albumin [Mass/volume] in Ser um or Plasma by Bromocresol green (BCG) dye binding methoOrdered By: Sammie Gonzalez on 05-12-2024 Albumin BCG dye [Mass/Vol] 4.1 g/dL 3.5-5.7 [facility] Alkaline phosphatase [Enzyma tic activity/volume] in Serum or PlasmaOrdered By: Sammie Gonzalez on 05-12-2024 ALP [Catalytic activity/Vol] 42 U/L Normal 34-104 [facility] Comment on above: Order Comment: FASTI NG. JKW Performed By: #### V [id number], TSH3, A1C WTH eA, DIFF CBC, [id number], LIPID, FE, CMP, T3F, T4T #### [facility] [address] #### INSULIN #### [facility] , Anisocytosis [Presence] in B lood by Light microscopyOrdered By: Sammie Gonzalez on 05-12-2024 Anisocytosis Ql (Bld) Slight Normal [facility] Comment on above: Order Comment: FASTI NG. JKW Performed By: #### V [id number], TSH3, A1C WTH eA, DIFF CBC, [id number], LIPID, FE, CMP, T3F, T4T ####[facility] [id number]#### INSULIN ####[facility] , Aspartate aminotransferase [ Enzymatic activity/volume] in Serum or PlasmaOrdered By: Sammie Gonzalez on 05-12-2024 AST [Catalytic activity/Vol] 11 U/L Low 13-39 [facility] Comment on above: Order Comment: FASTI NG. JKW Performed By: #### V [id number], TSH3, A1C WTH eA, DIFF CBC, [id number], LIPID, FE, CMP, T3F, T4T #### [facility] [address] [place] [address] [place] #### INSULIN #### [facility] , Basophils Auto (Bld) [#/Vol] Ordered By: Sammie Gonzalez on 05-12-2024 Basophils (Bld) [#/Vol] N/A F [facility] Basophils/100 WBC Auto (Bld) Ordered By: Sammie Gonzalez on 05-12-2024 Basophils/100 WBC (Bld) N/A F [facility] Basophils/100 leukocytes in Blood by Manual countOrdered By: Sammie Gonzalez on 05-12-2024 Basophils/100 WBC (Bld) 1 % Normal 0-2 F [facility] Comment on above: Order Comment: FASTI NG. JKW Performed By: #### V [id number], TSH3, A1C WTH eA, DIFF CBC, [id number], LIPID, FE, CMP, T3F, T4T ####[facility] [id number]#### INSULIN ####[facility] , Bilirubin.total [Mass/volume ] in Serum or PlasmaOrdered By: Sammie Gonzalez on 05-12-2024 Bilirubin [Mass/Vol] 0.4 mg/dL Normal 0.3-1.0 [facility] Comment on above: Order Comment: FASTI NG. JKW Performed By: #### V [id number], TSH3, A1C WTH eA, DIFF CBC, [id number], LIPID, FE, CMP, T3F, T4T #### [facility] [address] #### INSULIN #### [facility] , Calcium [Mass/volume] in Ser um or PlasmaOrdered By: Sammie Gonzalez on 05-12-2024 Calcium [Mass/Vol] 9.4 mg/dL Normal 8.6-10.3 [facility] Comment on above: Order Comment: FASTI NG. JKW Performed By: #### V [id number], TSH3, A1C WTH eA, DIFF CBC, [id number], LIPID, FE, CMP, T3F, T4T #### [facility] [address] #### INSULIN #### [facility] , [place] dioxide, total [Moles /volume] in Serum or PlasmaOrdered By: Sammie Gonzalez on 05-12-2024 CO2 [Moles/Vol] 27.0 mmol/L Normal 21.0-31.0 [facility] Comment on above: Order Comment: FASTI NG. JKW Performed By: #### V [id number], TSH3, A1C WTH eA, DIFF CBC, [id number], LIPID, FE, CMP, T3F, T4T #### [facility] [address] [place] [address] [place] #### INSULIN #### [facility] , Chloride [Moles/volume] in S micki or PlasmaOrdered By: Sammie Gonzalez on 05-12-2024 Chloride [Moles/Vol] 101 mmol/L Normal 98-107 [facility] Comment on above: Order Comment: FASTI NG. JKW Performed By: #### V [id number], TSH3, A1C WTH eA, DIFF CBC, [id number], LIPID, FE, CMP, T3F, T4T #### [facility] [address] [place] [address] [place] #### INSULIN #### [facility] , Cholesterol [Mass/volume] in Serum or PlasmaOrdered By: Sammie Gonzalez on 05-12-2024 Cholesterol [Mass/Vol] 191 mg/dL Normal 140-200 [place] Comment on above: Chol less than 200 m g/dl low riskChol 201-239 mg/dl borderline riskChol 240 mg/dl and greater high risk Order Comment: FASTI NG. JKW Result Comment: Chol less than 200 mg/dl low risk Chol 201-239 mg/dl borderline risk Chol 240 mg/dl and greater high risk Performed By: #### V [id number], TSH3, A1C WTH eA, DIFF CBC, [id number], LIPID, FE, CMP, T3F, T4T ####[facility] [id number] [place] [address] [place]#### INSULIN ####[facility] , Cholesterol in LDL Calc [Mas s/Vol]Ordered By: Sammie Gonzalez on 05-12-2024 Cholesterol in LDL [Mass/Vol] 76 mg/dL 0-100 [facility] Comment on above: LDL ATP III CLASSIFI CATIONLDL less than 100 mg/dL OptimalLDL 100-129 mg/dL Near or above optimalLDL 130-159 mg/dL Borderline highLDL 160-189 mg/dL HighLDL greater than 189 mg/dL Very high Cholesterol in VLDL Calc [Ma ss/Vol]Ordered By: Sammie Gonzalez on 05-12-2024 Cholesterol in VLDL [Mass/Vol] 29 mg/dL [facility] Comprehensive Metabolic Pane costa 05-12-2024 Albumin [Mass/Vol] 4.1 g/dL Normal 3.5-5.7 [facility] Comment on above: Order Comment: FASTI NG. JKW Performed By: #### V [id number], TSH3, A1C WTH eA, DIFF CBC, [id number], LIPID, FE, CMP, T3F, T4T #### [facility] [address] [place] [address] #### INSULIN #### [facility] , GFR/1.73 sq M.predicted MDRD (S/P/Bld) [Vol rate/Area] mL/min/{1.73_m2} Normal [facility] Comment on above: Order Comment: FASTI NG. JKW Performed By: #### V [id number], TSH3, A1C WTH eA, DIFF CBC, [id number], LIPID, FE, CMP, T3F, T4T #### [facility] [address] [place] [address] [place] #### INSULIN #### [facility] , Creatinine [Mass/volume] in Serum or PlasmaOrdered By: Sammie Gonzalez on 05-12-2024 Creatinine [Mass/Vol] 1.05 mg/dL Normal 0.60-1.[address] [facility] Comment on above: Order Comment: FASTI NG. JKW Performed By: #### V [id number], TSH3, A1C WTH eA, DIFF CBC, [id number], LIPID, FE, CMP, T3F, T4T #### [facility] [address] [place] [address] [place] #### INSULIN #### [facility] , Diff and CBCon 05-12-2024 Mean Corpuscular HGB Conc 33.0 g/dL Normal 32.0-35.0 [facility] Comment on above: Order Comment: FASTI NG. JKW Performed By: #### V [id number], TSH3, A1C WTH eA, DIFF CBC, [id number], LIPID, FE, CMP, T3F, T4T ####[address]#### INSULIN ####[facility] , Metamyelocytes 2 % High 0-[address] [facility] Comment on above: Order Comment: FASTI NG. JKW Performed By: #### V [id number], TSH3, A1C WTH eA, DIFF CBC, [id number], LIPID, FE, CMP, T3F, T4T ####[address]#### INSULIN ####[facility] , Microcytosis Slight Normal The [facility] Comment on above: Order Comment: FASTI NG. JKW Performed By: #### V [id number], TSH3, A1C WTH eA, DIFF CBC, [id number], LIPID, FE, CMP, T3F, T4T ####[address]#### INSULIN ####[facility] , Platelet Estimate Normal Normal Normal The [facility] Comment on above: Order Comment: FASTI NG. JKW Performed By: #### V [id number], TSH3, A1C WTH eA, DIFF CBC, [id number], LIPID, FE, CMP, T3F, T4T ####[address]#### INSULIN ####[facility] , Platelet Morphology Normal Normal Normal The [facility] Comment on above: Order Comment: FASTI NG. JKW Result Comment: PERF ORMED BY: [facility] [address] [place] [address] PATHOLOGIST CRAFT DEMONSTRATOR MONIK SILVESTRE M.D. Performed By: #### V [id number], TSH3, A1C WTH eA, DIFF CBC, [id number], LIPID, FE, CMP, T3F, T4T ####[place] [address] [address]#### INSULIN ####[facility] , Eosinophils Auto (Bld) [#/Vo l]Ordered By: Sammie Gonzalez on 05-12-2024 Eosinophils (Bld) [#/Vol] N/A [facility] Eosinophils/100 WBC Auto (Bl d)Ordered By: Sammie Gonzalez on 05-12-2024 Eosinophils/100 WBC (Bld) N/A [facility] Eosinophils/100 leukocytes i n Blood by Manual countOrdered By: Sammie Gonzalez on 05-12-2024 Eosinophils/100 WBC (Bld) 2 % Normal 1-3 [facility] Comment on above: Order Comment: FASTI NG. JKW Performed By: #### V [id number], TSH3, A1C WTH eA, DIFF CBC, [id number], LIPID, FE, CMP, T3F, T4T ####[address]#### INSULIN ####[facility] , Erythrocyte distribution wid th [Ratio] by Automated countOrdered By: Sammie Gonzalez on 05-12-2024 Erythrocyte distribution width (RBC) [Ratio] 13.9 % Normal 11.9-15.3 [facility] Comment on above: Order Comment: FASTI NG. JKW Performed By: #### V [id number], TSH3, A1C WTH eA, DIFF CBC, [id number], LIPID, FE, CMP, T3F, T4T ####[address]#### INSULIN ####[facility] , Erythrocytes [#/volume] in B lood by Automated countOrdered By: Sammie Gonzalez on 05-12-2024 RBC (Bld) [#/Vol] 4.30 10*6/uL Normal 3.60-5.00 [facility] Comment on above: Order Comment: FASTI NG. JKW Performed By: #### V [id number], TSH3, A1C WTH eA, DIFF CBC, [id number], LIPID, FE, CMP, T3F, T4T ####[facility] [id number]#### INSULIN ####[facility] , Folate [Mass/volume] in Seru m or PlasmaOrdered By: Sammie Gonzalez on 05-12-2024 Folate [Mass/Vol] 7.8 ng/mL >5.9 [facility] Comment on above: Folate reference ran ge: >5.9 ng/mlThe WHO technical consultation on folate and vitamin [id number] has determined that folate concentrations lessthan 4 [...] diagnosis of Diabetes Mellitus. Order Comment: PIPER ROBLERO Result Comment: [place] om Glucose Reference Range is dependent on time and content of last meal. Glucose of more than 200 mg/dL in a nonstressed, ambulatory subject supports the diagnosis of Diabetes Mellitus. ADA recommended reference range Performed By: #### V [id number], TSH3, A1C WTH eA, DIFF CBC, [id number], LIPID, FE, CMP, T3F, T4T #### [facility] [address] [place] [address] [place] #### INSULIN #### [facility] , Glucose mean value [Mass/vol ume] in Blood Estimated from glycated hemoglobinOrdered By: Sammie Gonzalez on 05-12-2024 Average glucose Estimated from glycated hemoglobin (Bld) [Mass/Vol] 114 mg/dL [facility] Hematocrit [Volume Fraction] of Blood by Automated countOrdered By: Sammie Gonzalez on 05-12-2024 Hematocrit (Bld) [Volume fraction] 39.1 % Normal 34.0-46.4 [facility] Comment on above: Order Comment: FASTI NG. JKW Performed By: #### V [id number], TSH3, A1C WTH eA, DIFF CBC, [id number], LIPID, FE, CMP, T3F, T4T ####[place] [address] [address]#### INSULIN ####[facility] , Hemoglobin A1c percentageOrd ered By: Sammie Gonzalez on 05-12-2024 HbA1c (Bld) [Mass fraction] 5.6 % Normal 4.3-5.6 [facility] Comment on above: Increased risk for d iabetes: 5.7 - 6.4diabetes: >6.4glycemic control for adults with diabetes: <7.0 Order Comment: FASTI NG. JKW Result Comment: Incr eased risk for diabetes: 5.7 - 6.4 diabetes: >6.4 glycemic control for adults with diabetes: <7.0 Performed By: #### V [id number], TSH3, A1C WTH eA, DIFF CBC, [id number], LIPID, FE, CMP, T3F, T4T #### [facility] [address] #### INSULIN #### [facility] , Hemoglobin [Mass/volume] in BloodOrdered By: Sammie Gonzalez on 05-12-2024 Hemoglobin (Bld) [Mass/Vol] 12.9 g/dL Normal 11.8-15.4 [facility] Comment on above: Order Comment: FASTI NG. JKW Performed By: #### V [id number], TSH3, A1C WTH eA, DIFF CBC, [id number], LIPID, FE, CMP, T3F, T4T ####[place] [address] [address]#### INSULIN ####[facility] , Insulinon 05-12-2024 Insulin 38.1 u[iU]/mL High 2.6-24.9 [facility] Comment on above: Order Comment: FASTI NG. JKW Result Comment: Perf ormed at: - [facility] [address] [id number] Director Of Search Engine Marketing: Maxim Daniel PhD, Phone: [phone] PERFORMED BY: [facility] [address] [place] [address] PATHOLOGIST CRAFT DEMONSTRATOR MONIK SILVESTRE M.D. Performed By: #### V [id number], TSH3, A1C WTH eA, DIFF CBC, [id number], LIPID, FE, CMP, T3F, T4T ####[facility]#### INSULIN ####[facility] , Iron [Mass/volume] in Serum or PlasmaOrdered By: Sammie Gonzalez on 05-12-2024 Iron [Mass/Vol] 80 ug/dL Normal 50-212 [facility] Comment on above: Order Comment: FASTI NG. JKW Performed By: #### V [id number], TSH3, A1C WTH eA, DIFF CBC, [id number], LIPID, FE, CMP, T3F, T4T ####[facility] [id number]#### INSULIN ####[facility] , Leukocytes [#/volume] correc jana for nucleated erythrocytes in Blood by Automated counOrdered By: Sammie Gonzalez on 05-12-2024 WBC corrected for nucl RBC Auto (Bld) [#/Vol] 11.8 10*3/uL High 3.8-11.6 [facility] Leukocytes [#/volume] in Blo od by Automated countOrdered By: Sammie Gonzalez on 05-12-2024 WBC (Bld) [#/Vol] 11.8 10*3/uL High 3.8-11.6 [facility] Comment on above: Order Comment: FASTI NG. JKW Performed By: #### V [id number], TSH3, A1C WTH eA, DIFF CBC, [id number], LIPID, FE, CMP, T3F, T4T ####[address]#### INSULIN ####[facility] , Lipid Panelon 05-12-2024 LDL Cholesterol,Calculated 76 mg/dL Normal 0-100 [facility] Comment on above: Order Comment: FASTI NG. JKW Result Comment: LDL ATP III CLASSIFICATION LDL less than 100 mg/dL Optimal LDL 100-129 mg/dL Near or above optimal LDL 130-159 mg/dL Borderline high LDL 160-189 mg/dL High LDL greater than 189 mg/dL Very high Performed By: #### V [id number], TSH3, A1C WTH eA, DIFF CBC, [id number], LIPID, FE, CMP, T3F, T4T ####[address]#### INSULIN ####[facility] , Triglyceride w/Reflex 146 mg/dL Normal 0-149 [facility] Comment on above: Order Comment: FASTI NG. JKW Result Comment: TRIG ATP III CLASSIFICATION TRIG less than 150 mg/dL Normal TRIG 150-199 mg/dL Borderline high TRIG 200-500 mg/dL High TRIG greater than 500 mg/dL Very high Standard traceable to the Center for Disease Conrtrol and Prevention (CDC) test method. Performed By: #### V [id number], TSH3, A1C WTH eA, DIFF CBC, [id number], LIPID, FE, CMP, T3F, T4T ####[address]#### INSULIN ####[facility] , VLDL CHOLESTEROL 29 mg/dL Normal [facility] Comment on above: Order Comment: FASTI NG. JKW Performed By: #### V [id number], TSH3, A1C WTH eA, DIFF CBC, [id number], LIPID, FE, CMP, T3F, T4T ####[place] [address] [place]#### INSULIN ####[facility] , Lymphocytes Auto (Bld) [#/Vo l]Ordered By: Sammie Gonzalez on 05-12-2024 Lymphocytes (Bld) [#/Vol] N/A [facility] Lymphocytes/100 WBC Auto (Bl d)Ordered By: Sammie Gonzalez on 05-12-2024 Lymphocytes/100 WBC (Bld) N/A [facility] Lymphocytes/100 leukocytes i n Blood by Manual countOrdered By: Sammie Gonzalez on 05-12-2024 Lymphocytes/100 WBC (Bld) 28 % Normal 18-42 [facility] Comment on above: Order Comment: FASTI NG. JKW Performed By: #### V [id number], TSH3, A1C WTH eA, DIFF CBC, [id number], LIPID, FE, CMP, T3F, T4T ####[place] [address] [address]#### INSULIN ####[facility] , MCH [Entitic mass] by Automa jana countOrdered By: Sammie Gonzalez on 05-12-2024 MCH (RBC) [Entitic mass] 29.9 pg Normal 24.7-34.3 [facility] Comment on above: Order Comment: FASTI NG. JKW Performed By: #### V [id number], TSH3, A1C WTH eA, DIFF CBC, [id number], LIPID, FE, CMP, T3F, T4T ####[place] [address] [place] [address] [place]#### INSULIN ####[facility] , MCHC Auto (RBC) [Mass/Vol]Or dered By: Sammie Gonzalez on 05-12-2024 MCHC (RBC) [Mass/Vol] 33.0 g/dL 32.0-35.[address] [facility] MCV [Entitic volume] by Auto mated countOrdered By: Sammie Gonzalez on 05-12-2024 MCV (RBC) [Entitic vol] 90.8 fL Normal 80-100 [facility] Comment on above: Order Comment: FASTI NG. JKW Performed By: #### V [id number], TSH3, A1C WTH eA, DIFF CBC, [id number], LIPID, FE, CMP, T3F, T4T ####[facility] [id number]#### INSULIN ####[facility] , Manual blood segmented neutr ophils/100 leukocytesOrdered By: Sammie Gonzalez on 05-12-2024 Segmented neutrophils/100 WBC (Bld) 54 % Normal 50-70 [facility] Comment on above: Order Comment: FASTI NG. JKW Performed By: #### V [id number], TSH3, A1C WTH eA, DIFF CBC, [id number], LIPID, FE, CMP, T3F, T4T ####[facility]#### INSULIN ####[facility] , Metamyelocytes/100 WBC Manua l cnt (Bld)Ordered By: Sammie Gonzalez on 05-12-2024 Metamyelocytes/100 WBC (Bld) 2 % High 0-0 [facility] Microcytes LM Ql (Bld)Ordere d By: Sammie Gonzalez on 05-12-2024 Microcytes Ql (Bld) Slight [facility] Monocytes Auto (Bld) [#/Vol] Ordered By: Sammie Gonzalez on 05-12-2024 Monocytes (Bld) [#/Vol] N/A [facility] Monocytes/100 WBC Auto (Bld) Ordered By: Sammie Gonzalez on 05-12-2024 Monocytes/100 WBC (Bld) N/A [facility] Monocytes/100 leukocytes in Blood by Manual countOrdered By: Sammie Gonzalez on 05-12-2024 Monocytes/100 WBC (Bld) 12 % High 2-11 [facility] Comment on above: Order Comment: FASTI NG. JKW Performed By: #### V [id number], TSH3, A1C WTH eA, DIFF CBC, [id number], LIPID, FE, CMP, T3F, T4T ####[facility] [id number]#### INSULIN ####[facility] , Neutrophils Auto (Bld) [#/Vo l]Ordered By: Sammie Gonzalez on 05-12-2024 Neutrophils (Bld) [#/Vol] N/A [facility] Neutrophils/100 WBC Auto (Bl d)Ordered By: Sammie Gonzalez on 05-12-2024 Neutrophils/100 WBC (Bld) N/A [facility] No Panel InformationOrdered By: Sammie Gonzalez on 05-12-2024 Estimated GFR (CKD-EPI) > 60.0 mL/Min [facility] Creatinine Clearance (Chem N/A [facility] Nucleated erythrocytes [Pres ence] in Blood by Automated countOrdered By: Sammie Gonzalez on 05-12-2024 Nucleated RBC Auto Ql (Bld) N/A [facility] Peripheral white blood cell differential % bands, microscopic examOrdered By: Samime Gonzalez on 05-12-2024 Band form neutrophils/100 WBC (Bld) 1 % Normal 0-5 [facility] Comment on above: Order Comment: FASTI NG. JKW Performed By: #### V [id number], TSH3, A1C WTH eA, DIFF CBC, [id number], LIPID, FE, CMP, T3F, T4T ####[facility] [place] [id number] [facility]#### INSULIN ####[facility] , Platelet adequacy [Presence] in Blood by Light microscopyOrdered By: Sammie Gonzalez on 05-12-2024 Platelets LM Ql (Bld) Normal Normal [facility] Platelet mean volume [Entiti c volume] in Blood by Automated countOrdered By: Sammie Gonzalez on 05-12-2024 Platelet mean volume (Bld) [Entitic vol] 8.1 fL Normal 6.3-10.7 [facility] Comment on above: Order Comment: FASTI NG. JKW Performed By: #### V [id number], TSH3, A1C WTH eA, DIFF CBC, [id number], LIPID, FE, CMP, T3F, T4T ####[facility] [id number]#### INSULIN ####[facility] , Platelet morphology finding [Identifier] in BloodOrdered By: Sammie Gonzalez on 05-12-2024 Platelet morphology finding Nom (Bld) Normal Normal [facility] Platelets [#/volume] in Bloo d by Automated countOrdered By: Sammie Gonzalez on 05-12-2024 Platelets (Bld) [#/Vol] 392 10*3/uL Normal 150-450 [facility] Comment on above: Order Comment: FASTI NG. JKW Performed By: #### V [id number], TSH3, A1C WTH eA, DIFF CBC, [id number], LIPID, FE, CMP, T3F, T4T ####[place] [address] [address]#### INSULIN ####[facility] , Potassium [Moles/volume] in Serum or PlasmaOrdered By: Sammie Gonzalez on 05-12-2024 Potassium [Moles/Vol] 4.1 mmol/L Normal 3.5-5.[address] [facility] Comment on above: Order Comment: FASTI NG. JKW Performed By: #### V [id number], TSH3, A1C WTH eA, DIFF CBC, [id number], LIPID, FE, CMP, T3F, T4T #### [facility] [address] [place] [address] [place] #### INSULIN #### [facility] , Protein [Mass/volume] in Ser um or PlasmaOrdered By: Sammie Gonzalez on 05-12-2024 Protein [Mass/Vol] 6.1 g/dL Low 6.4-8.9 [facility] Comment on above: Order Comment: FASTI NG. JKW Performed By: #### V [id number], TSH3, A1C WTH eA, DIFF CBC, [id number], LIPID, FE, CMP, T3F, T4T #### [address] #### INSULIN #### [facility] , RBC morphologyOrdered By: erik Gonzalez on 05-12-2024 RBC morphology finding Nom (Bld) N/A [facility] Serum globulin measurement b y calculation (mass/volume)Ordered By: Sammie Janice on 05-12-2024 Globulin (S) [Mass/Vol] 2.0 g/dL Normal [facility] Comment on above: Order Comment: FASTI NG. JKW Performed By: #### V [id number], TSH3, A1C WTH eA, DIFF CBC, [id number], LIPID, FE, CMP, T3F, T4T #### [address] #### INSULIN #### [facility] , Serum or plasma albumin/glob ulin mass ratioOrdered By: Sammie Gonzalez on 05-12-2024 Albumin/Globulin [Mass ratio] 2.1 {ratio} Normal [facility] Comment on above: Order Comment: FASTI NG. JKW Performed By: #### V [id number], TSH3, A1C WTH eA, DIFF CBC, [id number], LIPID, FE, CMP, T3F, T4T #### [address] #### INSULIN #### [facility] , Serum or plasma anion gap de terminationOrdered By: Sammie Gonzalez on 05-12-2024 Anion gap [Moles/Vol] 12.1 mmol/L Normal 6.0-15.0 [place] Comment on above: Order Comment: FASTI NG. JKW Performed By: #### V [id number], TSH3, A1C WTH eA, DIFF CBC, [id number], LIPID, FE, CMP, T3F, T4T #### [address] #### INSULIN #### [facility] , Serum or plasma high density lipoprotein (HDL) cholesterol measurementOrdered By: Sammie Gonzalez on 05-12-2024 Cholesterol in HDL [Mass/Vol] 86 mg/dL Normal 23-92 [facility] Comment on above: HDL CHOL ATP-III CLA SSIFICATION Cardiovascular RiskHDL > or equal to 60 mg/dL LOWHDL < 40 mg/dL HIGH Order Comment: PIPER STEWARTW Result Comment: HDL CHOL ATP-III CLASSIFICATION Cardiovascular Risk HDL > or equal to 60 mg/dL LOW HDL < 40 mg/dL HIGH Performed By: #### V [id number], TSH3, A1C WTH eA, DIFF CBC, [id number], LIPID, FE, CMP, T3F, T4T ####[facility] [id number]#### INSULIN ####[facility] , Serum or plasma insulin kiara urement (units/volume)Ordered By: Sammie Gonzalez on 05-12-2024 Insulin Qn 38.1 u[iU]/mL High 2.6-24.9 [facility] Comment on above: Performed at: [facility] [employer] Director: Maxim Daniel PhD, Phone: [phone] Serum or plasma total choles terol/high density lipoprotein (HDL) cholesterol mass ratOrdered By: Sammie Gonzalez on 05-12-2024 Cholesterol.total/Tali sterol in HDL [Mass ratio] 2.2 {ratio} Normal <5.0 [facility] Comment on above: Order Comment: PIPER STEWARTW Performed By: #### V [id number], TSH3, A1C WTH eA, DIFF CBC, [id number], LIPID, FE, CMP, T3F, T4T ####[facility] [id number]#### INSULIN ####[facility] , Sodium [Moles/volume] in Ser um or PlasmaOrdered By: Sammie Gonzalez on 05-12-2024 Sodium [Moles/Vol] 136 mmol/L Normal 136-145 [facility] Comment on above: Order Comment: FASTI NG. JKW Performed By: #### V [id number], TSH3, A1C WTH eA, DIFF CBC, [id number], LIPID, FE, CMP, T3F, T4T #### [facility] [address] #### INSULIN #### [facility] , Thyrotropin [Units/volume] i n Serum or PlasmaOrdered By: Sammie Gonzalez on 05-12-2024 TSH Qn 6.32 m[IU]/L High 0.45-5.33 [facility] Comment on above: Order Comment: FASTI NG. JKW Performed By: #### V [id number], TSH3, A1C WTH eA, DIFF CBC, [id number], LIPID, FE, CMP, T3F, T4T ####[facility]#### INSULIN ####[facility] , Thyroxine (T4) [Mass/volume] in Serum or PlasmaOrdered By: Sammie Gonzalez on 05-12-2024 T4 [Mass/Vol] 11.59 ug/dL Normal 5.39-11.82 [facility] Comment on above: Order Comment: FASTI NG. JKW Performed By: #### V [id number], TSH3, A1C WTH eA, DIFF CBC, [id number], LIPID, FE, CMP, T3F, T4T ####[facility] [place] [address] [place]#### INSULIN ####[facility] , Triglyceride [Mass/volume] i n Serum or PlasmaOrdered By: Sammie Gonzalez on 05-12-2024 Triglyceride [Mass/Vol] 146 mg/dL 0-149 [facility] Comment on above: TRIG ATP III CLASSIF ICATIONTRIG less than 150 mg/dL NormalTRIG 150-199 mg/dL Borderline highTRIG 200-500 mg/dL High TRIG greater than 500 mg/dL Very highStandard traceable to the Center for Disease Conrtrol and Prevention (CDC) test method. Triiodothyronine (T3) Freeon 05-12-2024 Triiodothyronine (T3) Free 3.61 pg/mL Normal 2.50-3.90 [facility] Comment on above: Order Comment: PIPER ROBLERO Result Comment: PERF ORMED BY: [place] [address] PATHOLOGIST CRAFT DEMONSTRATOR MONIK SILVESTRE M.D. Performed By: #### V [id number], TSH3, A1C WTH eA, DIFF CBC, [id number], LIPID, FE, CMP, T3F, T4T #### [facility] [address] [place] [address] #### INSULIN #### [facility] , Triiodothyronine (T3) Free [ Mass/volume] in Serum or PlasmaOrdered By: Sammie Gonzalez on 05-12-2024 Free T3 [Mass/Vol] 3.61 pg/mL 2.50-3.90 [facility] Urea nitrogen [Mass/volume] in Serum or PlasmaOrdered By: Sammie Gonzalez on 05-12-2024 Urea nitrogen [Mass/Vol] 20 mg/dL Normal 7-25 [facility] Comment on above: Order Comment: PIPER ROBLERO Performed By: #### V [id number], TSH3, A1C WTH eA, DIFF CBC, [id number], LIPID, FE, CMP, T3F, T4T #### [facility] [address] [place] [address] [place] #### INSULIN #### [facility] , Vit. B12/Folate Profileon Folate 7.8 ng/mL Normal >5.9 [facility] Comment on above: Order Comment: PIPER STEWARTW Result Comment: Jonna te reference range: >5.9 ng/ml The WHO technical consultation on folate and vitamin b12 deficiencies has determined that folate concentrations less than 4 ng/ml are considered deficient. Performed By: #### V [id number], TSH3, A1C WTH eA, DIFF CBC, [id number], LIPID, FE, CMP, T3F, T4T ####[facility] [place] [address] [facility]#### INSULIN ####[facility] , Vitamin B12 ser/plasOrdered By: Sammie Gonzalez on 05-12-2024 Cobalamin (Vitamin B12) [Mass/Vol] 306 pg/mL Normal 180-914 [facility] Comment on above: Order Comment: PIPER ROBLERO Performed By: #### V [id number], TSH3, A1C WTH eA, DIFF CBC, [id number], LIPID, FE, CMP, T3F, T4T ####[facility] [place] [address] [facility]#### INSULIN ####[facility] , Vitamin D 25 Hydroxy Totalon 05-12-2024 Vitamin D 25 Hydroxy Total 39.9 ng/mL Normal 30-100 [facility] [facility] Comment on above: Order Comment: PIPER STEWARTW Result Comment: THERESE MIN D STATUS 25(OH)VITAMIN D RANGE (ng/mL) Deficient <20 Insufficient 20 to <30 Sufficient 30 to 100 Reference: Nain MF,Anum NC, Brynn APARICIO, et al. Evaluation,treatment, and prevention of vitamin D deficiency; an Endocrine Society clinical practice guideline. JCEM. 2010; 96(7):1911-30. PERFORMED BY: [facility] [address] [facility] [place] [id number] PATHOLOGIST CRAFT DEMONSTRATOR MONIK SILVESTRE M.D. Performed By: #### V TMI88LTN, TSH3, A1C WTH eA, DIFF CBC, ZTVB02OC, LIPID, FE, CMP, T3F, T4T ####[place] [address] [place] [address] [facility]#### INSULIN ####[facility] , Vitamin D+Metabolites [Mass/ volume] in Serum or PlasmaOrdered By: Sammie Gonzalez on 05-12-2024 Vitamin D+Metabolites [Mass/Vol] 39.9 ng/mL 30-100 [facility] Comment on above: VITAMIN D STATUS 25( OH)VITAMIN D RANGE (ng/mL) Deficient <20 Insufficient 20 to <30Sufficient 30 to 100Reference: Nain MF,Anum LAURA, Brynn APARICIO, et al. Evaluation,treatment, and prevention of vitamin D deficiency; an Endocrine Society clinical practice guideline. JCEM. 2010; 96(7):1911-30. Kathy 03-08-2024 CNPN Telephone (NSCAMN) KOURTNEY NOVAK ([id number]) 1975 F Date Time Provider Department 03/08/24 ERIK PINEDA NSCAMN During your visit today, we recorded the following information about you: Brain Ruth 03/08/2024 1:49 PM Signed General Call Caller : Moira harrison at [facility] Contact Reason for Call : Nurse would like to confirm that pt is allowed to receive steroid injection prior to surgery-80mg of kenalog Patient requesting return call ? Yes Mario Alberto Phillips RN 03/08/2024 2:29 PM Signed Spoke with nurse Pizarro. We discussed that the patient's epidural steroid injection on 03/14/2024 for her neck pain (C7/T1) is far out from her surgery for the craniotomy with Dr Erik Pineda (04/04/24). Mario Alberto Phillips RN, Meter Tester Mario Alberto Phillips RN 03/08/2024 2:42 PM Addendum ADDENDUM: March 08, 2024 2:39 PM Distance Health Visit on 02/02/2024 including the details for the patient's surgery was faxed to Moira DONOVAN ( [facility]) . Mario Alberto Phillips RN, Meter Tester Allergies As of Date: 03/08/2024 (No Known Allergies) Date Reviewed: 02/05/2024 Reviewed by: Rachele Fenton APRN.CLINICAL SPECIALIST - Fully Assessed Reason for Visit: epidural [...] Status:Closed by MARIO ALBERTO PHILLIPS on 03/08/24 [facility] thyroidon 02-15-2024 US thyroid [facility] Main [place] [id number] Ultrasound Report Signed Patient: Kourtney Novak MR#: [id number] : 1975 Acct:[id number] Age/Sex: 48 / F ADM Date: 02/15/24 Loc: Room: Type: [facility] Attending Dr: Sammie Gonzalez MD Ordering [...] George Gray M.D.02/15/2024 6:25 PM Dictation Location: [place] [address] Tech: Beti Young Transcribed By: GRACIE 02/15/241824 Dictated By: George Gray DO 02/15/241821 Signed By: 02/15/241824 Normal [facility] Kathy [facility]-2024 [facility] KOURTNEY NOVAK ([id number]) 1975 F Date Time Provider Department 02/10/24 RACHELE FENTON [facility] During your visit today, we recorded the following information about you: [place] Gifty Rea 02/10/2024 3:20 PM Signed Prior Authorization for Medications Requested by ([email or web address], Pharmacy, Patient Call, Fax) : [email or web address] Pharmacy Name: [facility] Phone # : [phone] Name of Medication : Robaxin Dose : 500 mg Tablet If renewal, auth date expiration: NA Prescribing Provider: Eliceo Last OV: 02/05/2024 with Eliceo Insurance Provider : Medicare / [employer]. Is insurance card scanned in, including Rx info? Medicare card scanned - no RX information Insurance Phone : [facility] [place]: NICOLAS E-PA? Yes Allergies As of Date: 02/10/2024 (No Known Allergies) Date Reviewed: 02/05/2024 Reviewed by: Rachele Fenton APRN.CLINICAL SPECIALIST - Fully Assessed Reason for Visit: Insurance Authorization [[id number]] Aurelio PA - Medicare / [employer]. [Other] Prescriptions as of 03/14/2024 - nortriptyline [...] Status:Closed by TERRI GARCIA on 03/14/24 Normal [facility] MR cervical spine wo conon 0 02-09-2024 MR cervical spine wo con [place] [address] MRI Report Signed Patient: Kourtney Novak MR#: [id number] : 1975 Acct:[id number] Age/Sex: 48 / F ADM Date: 02/09/24 Loc: [place] Room: Type: [facility] Attending Dr: Sammie Gonzalez MD Copies [...] Perry Milton M.D.02/09/2024 1:27 PM Dictation Location: [place] [address] Transcribed By: [facility] 02/09/24 1327 Dictated By: Prery Milton II, MD 02/09/24 1320 Signed By: 02/09/24 1327 Normal [facility] MR lumbar spine wo [facility] MR lumbar spine wo con [facility] [place] [address] MRI Report Signed Patient: Kourtney Novak MR#: [id number] : 1975 Acct:[id number] Age/Sex: 48 / F ADM Date: 02/09/24 Loc: [place] Room: Type: [facility] Attending Dr: Sammie Gonzalez MD Copies [...] Perry Milton M.D.02/09/2024 1:35 PM Dictation Location: [place] [address] Transcribed By: [facility] 02/09/24 1335 Dictated By: Perry Milton II, MD 02/09/24 1331 Signed By: 02/09/24 1335 Normal [facility] XR pre/post mri xrayon 02-08 XR pre/post mri xray [place] [address] XRay Report Signed Patient: Kourtney Novak MR#: [id number] : 1975 Acct:[id number] Age/Sex: 48 / F ADM Date: 02/09/24 Loc: [place] Room: Type: [facility] Attending Dr: Sammie Gonzalez MD Copies [...] may be positional or secondary muscle spasm. Sexu-zl-gwbwtrya degenerative changes are noted at C5-C6 and C6-C7 as above. Lumbar spine: There is a dextro convex curvature. No fracture or subluxation. Impression dictated by: Perry Milton M.D.02/09/2024 1:47 PM Dictation Location: [place] [address] Transcribed By: [facility] 02/09/24 1347 Dictated By: Perry Milton II, MD 02/09/24 1343 Signed By: 02/09/24 1347 Normal [facility] Physician [facility] Kathy 02-02-2024 [facility] KOURTNEY NOVAK ([id number]) 1975 F Date Time Provider Department 02/02/24 MARIO ALBERTO PHILLIPS NSCAMN During your visit today, we recorded [...] by MARIO ALBERTO PHILLIPS on 02/02/24 Normal [facility] CT BRAIN WO IVCONon 01-29-20 CT BRAIN WO IVCON * * *Final Report* * * DATE OF EXAM: Jan 29 2024 1:02PM [facility] 0504 - CT BRAIN WO IVCON / [...] soft tissue component identified in the orbit. Varnish Maker Helper: GUANACO Transcribe Date/Time: Jan 31 2024 3:33P Dictated by : NATIVIDAD PRIEST MD This examination was interpreted and the report reviewed and electronically signed by: NATIVIDAD PRIEST MD on Jan 31 2024 3:37PM EST [id number] Normal [facility] MRI SKULL BASE WO/W IVCONon [...] tissue mass extending into the of the technical illustrations map inker or parapharyngeal spaces. The soft tissue planes of the, retropharyngeal, and prevertebral spaces are maintained. The visualized parotid glands are normal in appearance. Nasopharynx/Oropharyn x: The nasopharynx and oropharynx are normal in appearance. 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 Varnish Maker Helper: PSCB Transcribe Date/Time: Jan 31 2024 5:10P Dictated by : WESTLEY IYER MD This examination was interpreted and the report reviewed and electronically signed by: WESTLEY IYER MD on Jan 31 2024 5:28PM EST [id number] [facility] 01-19-2024 [facility] KOURTNEY NOVAK ([id number]) 1975 F Date Time Provider Department 01/19/24 MARIO ALBERTO PHILLIPS [facility] During your visit today, we recorded the following information about you: Mario Alberto Phillips RN 01/19/2024 9:36 AM Signed Spoke with Kourtney Johnson Tingsoraida today confirming surgery on 04/11/[address] Erik Pineda. Right middle sphenoid wing Preoperative appointments will be scheduled ~ 2 weeks prior to surgery date at a [facility] facility closer to the patient's home. Mario Alberto Phillips RN, Meter Tester Mario Alberto Phillips RN 01/19/2024 10:43 AM [...] by MARIO ALBERTO PHILLIPS on 01/19/24 Normal [facility] Alanine aminotransferase [En zymatic activity/volume] in Serum or PlasmaOrdered By: Zeinab Wood on 01-08-2024 ALT [Catalytic activity/Vol] 22 U/L Normal 7-52 [facility] Comment on above: Order Comment: PIPER ROBLERO Result Comment: PERF ORMED BY: [place] [address] PATHOLOGIST CRAFT DEMONSTRATOR MONIK SILVESTRE M.D. Performed By: #### C BC, AST, CREAT, ALT #### [address] Aspartate aminotransferase [ Enzymatic activity/volume] in Serum or PlasmaOrdered By: Zeinab Wood on 01-08-2024 AST [Catalytic activity/Vol] 16 U/L Normal 13-39 [facility] Comment on above: Order Comment: PIPER ROBLERO Performed By: #### C BC, AST, CREAT, ALT #### [address] Automated basophil %Ordered By: Zeinab Wood on 01-08-2024 Basophils/100 WBC (Bld) 1.1 % Normal . [facility] Comment on above: Order Comment: FASTI NG. JKW Performed By: #### C BC, AST, CREAT, ALT #### [address] Automated basophil countOrde red By: Zeinab Wood on 01-08-2024 Basophils (Bld) [#/Vol] 0.1 10*3/uL Normal 0.0-0.2 [facility] Comment on above: Order Comment: FASTI NG. JKW Result Comment: PERF ORMED BY: [place] [address] PATHOLOGIST CRAFT DEMONSTRATOR MONIK SILVESTRE M.D. Performed By: #### C BC, AST, CREAT, ALT #### [address] Automated blood monocyte cou ntOrdered By: Zeinab Wood on 01-08-2024 Monocytes (Bld) [#/Vol] 0.8 10*3/uL Normal 0.0-0.8 [facility] Comment on above: Order Comment: FASTI NG. JKW Performed By: #### C BC, AST, CREAT, ALT #### [address] Automated eosinophil %Ordere d By: Zeinab Wood on 01-08-2024 Eosinophils/100 WBC (Bld) 1.8 % Normal . [facility] Comment on above: Order Comment: FASTI NG. JKW Performed By: #### C BC, AST, CREAT, ALT #### [address] Automated eosinophil countOr dered By: Zeinab Wood on 01-08-2024 Eosinophils (Bld) [#/Vol] 0.1 10*3/uL Normal 0.0-0.45 [facility] Comment on above: Order Comment: FASTI NG. JKW Performed By: #### C BC, AST, CREAT, ALT #### [facility] [address] Automated monocyte %Ordered By: Zeinab Wood on 01-08-2024 Monocytes/100 WBC (Bld) 11.3 % Normal . F [facility] Comment on above: Order Comment: FASTI NG. JKW Performed By: #### C BC, AST, CREAT, ALT #### [facility] [address] Automated neutrophil %Ordere d By: Zeinab Wood on 01-08-2024 Neutrophils/100 WBC (Bld) 56.5 % Normal . [facility] Comment on above: Order Comment: FASTI NG. JKW Performed By: #### C BC, AST, CREAT, ALT #### [facility] [address] [place] [address] CNPNon 01-08-2024 CNPN Telephone (ISSA) KOURTNEY NOVAK ([id number]) 1975 F Date Time Provider Department 01/08/24 ZEINAB WOOD During your visit today, we recorded the following information about you: Rohit Kaye MA 01/08/2024 3:19 PM Signed Lab results received from [facility]. Placed in dr Wood folder for review, [...] Status:Closed by ROHIT KAYE on 01/08/24 Normal [facility] Complete Blood Count Auto Di ffon 01-08-2024 Mean Corpuscular HGB Conc 33.4 g/dL Normal 32.0-35.0 [facility] Comment on above: Order Comment: PIPER ROBLERO Performed By: #### C BC, AST, CREAT, ALT #### [address] NRBC% 0.1 /100{WBC} Normal 0-0.5 [facility] Comment on above: Order Comment: FASTI NG. JKW Performed By: #### C BC, AST, CREAT, ALT #### [address] Creatinineon 01-08-2024 GFR/1.73 sq M.predicted MDRD (S/P/Bld) [Vol rate/Area] mL/min/{1.73_m2} Normal [facility] Comment on above: Order Comment: FASTI NG. JKW Performed By: #### C BC, AST, CREAT, ALT #### [address] Creatinine [Mass/volume] in Serum or PlasmaOrdered By: Zeinab Wood on 01-08-2024 Creatinine [Mass/Vol] 1.00 mg/dL Normal 0.60-1.[address] [facility] Comment on above: Order Comment: FASTI NG. JKW Performed By: #### C BC, AST, CREAT, ALT #### [address] Erythrocyte distribution wid th [Ratio] by Automated countOrdered By: Zeinab Wood on 01-08-2024 Erythrocyte distribution width (RBC) [Ratio] 13.1 % Normal 11.9-15.3 [facility] Comment on above: Order Comment: FASTI NG. JKW Performed By: #### C BC, AST, CREAT, ALT #### [address] Erythrocytes [#/volume] in B lood by Automated countOrdered By: Zeinab Wood on 01-08-2024 RBC (Bld) [#/Vol] 4.29 10*6/uL Normal 3.60-5.00 [facility] Comment on above: Order Comment: FASTI NG. JKW Performed By: #### C BC, AST, CREAT, ALT #### [address] [place] [address] [place] Hematocrit [Volume Fraction] of Blood by Automated countOrdered By: Zeinab Wood on 01-08-2024 Hematocrit (Bld) [Volume fraction] 39.2 % Normal 34.0-46.4 [facility] Comment on above: Order Comment: PIPER FoleyKW Performed By: #### C BC, AST, CREAT, ALT #### [address] Hemoglobin [Mass/volume] in BloodOrdered By: Zeinab Wood on 01-08-2024 Hemoglobin (Bld) [Mass/Vol] 13.1 g/dL Normal 11.8-15.4 [facility] Comment on above: Order Comment: PIPER BOX JKW Performed By: #### C BC, AST, CREAT, ALT #### [address] Leukocytes [#/volume] correc jana for nucleated erythrocytes in Blood by Automated counOrdered By: Zeinab Wood on 01-08-2024 WBC corrected for nucl RBC Auto (Bld) [#/Vol] 6.8 10*3/uL 3.8-11.6 [facility] Leukocytes [#/volume] in Blo od by Automated countOrdered By: Zeinab Wood on 01-08-2024 WBC (Bld) [#/Vol] 6.8 10*3/uL Normal 3.8-11.6 [facility] Comment on above: Order Comment: PIPER BOX JKW Performed By: #### C BC, AST, CREAT, ALT #### [place] [address] [place] Lymphocytes [#/volume] in Bl ood by Automated countOrdered By: Zeinab Wood on 01-08-2024 Lymphocytes (Bld) [#/Vol] 2.0 10*3/uL Normal 1.00-4.8 [facility] Comment on above: Order Comment: PIPER BOX JKW Performed By: #### C BC, AST, CREAT, ALT #### [address] Lymphocytes/100 leukocytes i n Blood by Automated countOrdered By: Zeinab Wood on 01-08-2024 Lymphocytes/100 WBC (Bld) 29.3 % Normal . [facility] Comment on above: Order Comment: PIPER SANTOS. JKW Performed By: #### C BC, AST, CREAT, ALT #### [facility] [address] [place] [address] MCH [Entitic mass] by Automa jana countOrdered By: Zeinab Wood on 01-08-2024 MCH (RBC) [Entitic mass] 30.6 pg Normal 24.7-34.3 [facility] Comment on above: Order Comment: PIPER SANTOS. JKW Performed By: #### C BC, AST, CREAT, ALT #### [address] MCHC Auto (RBC) [Mass/Vol]Or dered By: Zeinab Wood on 01-08-2024 MCHC (RBC) [Mass/Vol] 33.4 g/dL 32.0-35.[address] [facility] MCV [Entitic volume] by Auto mated countOrdered By: Zeinab Wood on 01-08-2024 MCV (RBC) [Entitic vol] 91.5 fL Normal 80-100 [facility] Comment on above: Order Comment: PIPER SANTOS. JKW Performed By: #### C BC, AST, CREAT, ALT #### [facility] [address] [place] [address] Neutrophils [#/volume] in Bl ood by Automated countOrdered By: Zeinab Wood on 01-08-2024 Neutrophils (Bld) [#/Vol] 3.9 10*3/uL Normal 1.8-7.7 [facility] Comment on above: Order Comment: PIPER SANTOS. JKW Performed By: #### C BC, AST, CREAT, ALT #### [facility] [address] [place] [address] No Panel InformationOrdered By: Zeinab Wood on 01-08-2024 Estimated GFR (CKD-EPI) > 60.0 mL/Min [facility] Pharm[facility] Creatinine Clearance (Chem N/A [facility] Nucleated erythrocytes [Pres ence] in Blood by Automated countOrdered By: Zeinab Wood on 01-08-2024 Nucleated RBC Auto Ql (Bld) 0.1 /100{WBC} 0-0.5 [facility] Platelet mean volume [Entiti c volume] in Blood by Automated countOrdered By: Zeinab Wood on 01-08-2024 Platelet mean volume (Bld) [Entitic vol] 8.4 fL Normal 6.3-10.7 [facility] Comment on above: Order Comment: PIPER BOX JKW Performed By: #### C BC, AST, CREAT, ALT #### [facility] [address] [place] [address] Platelets [#/volume] in Bloo d by Automated countOrdered By: Zeinab Wood on 01-08-2024 Platelets (Bld) [#/Vol] 284 10*3/uL Normal 150-450 [facility] Comment on above: Order Comment: PIPER SANTOS. JKW Performed By: #### C BC, AST, CREAT, ALT #### [facility] [address] CNPNon 01-05-2024 CNPN Telephone (NSCAMN) KOURTNEY NOVAK ([id number]) 1975 F Date Time Provider Department 01/05/24 MARIO ALBERTO PHILLIPS [facility] During your visit today, we recorded the [...] Status:Closed by MARIO ALBERTO PHILLIPS on 01/05/24 [facility] 01-04-2024 [facility] Telephone (PlutoraUAV) JOSSELYNZOHRASORAIDAKOURTNEY ([id number]) 1975 F Date Time Provider Department 01/04/24 ZEINAB WOOD During your visit today, we recorded the following information about you: Verenice Ga RN 01/04/2024 1:47 PM Signed Patient calling Needs 01/01/24 Lab Orders in [facility] please (pended) Also requesting to FAX 01/01/24 Lab Orders to [facility] She will send their FAX # in My Chart Zeinab Wood MD 01/04/2024 2:03 PM Signed Labs are ordered, please print and fax per patient request. MD Jay Grace Laura, MA 01/04/2024 2:45 PM Signed Printed labs. Sent msg to pt to clarify which [facility] Lab to fax to. Labs/Fax sheet in Michelle's andreafski green folder. Please fax once clarification is [...] Status:Closed by MICHELLE THOMPSON on 01/04/24 Normal [facility] Automated basophil %Ordered By: Sammie Gonzalez on 11-11-2023 Basophils/100 WBC (Bld) 1.0 % Normal . [facility] Comment on above: Performed By: #### F E, MARIELLA, CBC ####[facility] [address] [place] [id number] [facility] Automated basophil countOrde red By: Sammie Gonzalez on 11-11-2023 Basophils (Bld) [#/Vol] 0.1 10*3/uL Normal 0.0-0.2 [facility] Comment on above: Result Comment: PERF ORMED BY: [facility] [address] [place] [address] PATHOLOGIST CRAFT DEMONSTRATOR MONIK SILVESTRE M.D. Performed By: #### F E, MARIELLA, CBC ####[address] Automated blood monocyte cou ntOrdered By: Sammie Smithpiedad on 11-11-2023 Monocytes (Bld) [#/Vol] 0.9 10*3/uL High 0.0-0.8 [facility] Comment on above: Performed By: #### F E, MARIELLA, CBC ####[address] Automated eosinophil %Ordere d By: Sammie Smithpiedad on 11-11-2023 Eosinophils/100 WBC (Bld) 1.3 % Normal . [facility] Comment on above: Performed By: #### F E, MARIELLA, CBC ####[address] Automated eosinophil countOr dered By: Sammie Janice on 11-11-2023 Eosinophils (Bld) [#/Vol] 0.1 10*3/uL Normal 0.0-0.45 [facility] Comment on above: Performed By: #### F E, MARIELLA, CBC ####[address] Automated monocyte %Ordered By: Sammie Janice on 11-11-2023 Monocytes/100 WBC (Bld) 9.8 % Normal . [facility] Comment on above: Performed By: #### F E, MARIELLA, CBC ####[address] Automated neutrophil %Ordere d By: Sammie Smithpiedad on 11-11-2023 Neutrophils/100 WBC (Bld) 45.3 % Normal . [facility] Comment on above: Performed By: #### F E, MARIELLA, CBC ####[address] CNPNon 11-11-2023 CNPN Telephone (NSCAMN) KOURTNEY NOVAK ([id number]) 1975 F Date Time Provider Department 11/11/23 MARIO ALBERTO PHILLIPS NSCAMN During your visit today, we recorded the following information about you: Mario Alberto Phillips, VENUS 11/11/2023 11:41 AM Signed Spoke with Ms.Mandie Alex Novak today following up on the [employer] message from 10/08/2023. She sent a message about having symptoms of blurry vision and was advised to schedule an appointment with ophthalmology. Today the patient stated that the blurry vision was 1 incident and that she did not have any vision changes since. She was made aware to send an update or call for any questions or concerns. Mario Alberto Phillips RN, Meter Tester Allergies As of Date: 11/11/2023 (No Known Allergies) Date Reviewed: 09/28/2023 Reviewed by: Michelle Thompson MA - Fully Assessed Reason for Visit: Care Coordination [3798] Cmt: follow up Prescriptions as of 11/11/2023 [...] by MARIO ALBERTO PHILLIPS on 11/11/23 Normal [facility] Complete Blood Count Auto Di ffon 11-11-2023 Mean Corpuscular HGB Conc 32.6 g/dL Normal 32.0-35.0 [facility] Comment on above: Performed By: #### F MARIELLA Gomez, CBC ####[place] [address] [address] NRBC% 0.1 /100{WBC} Normal 0-0.5 [facility] Comment on above: Performed By: #### F MARIELLA Gomez, CBC ####[place] [address] [address] Erythrocyte distribution wid th [Ratio] by Automated countOrdered By: Sammie Gonzalez on 11-11-2023 Erythrocyte distribution width (RBC) [Ratio] 13.3 % Normal 11.9-15.3 [facility] Comment on above: Performed By: #### F MARIELLA Gomez, CBC ####[address] Erythrocytes [#/volume] in B lood by Automated countOrdered By: Sammie Gonzalez on 11-11-2023 RBC (Bld) [#/Vol] 4.34 10*6/uL Normal 3.60-5.00 [facility] Comment on above: Performed By: #### F E, MARIELLA, CBC ####[place] [id number] [facility] Ferritin [Mass/volume] in Se rum or PlasmaOrdered By: Sammie Gonzalez on 11-11-2023 Ferritin [Mass/Vol] 88.4 ng/mL Normal 11.0-306.8 [facility] Comment on above: Result Comment: PERF ORMED BY: [facility] [address] [place] [id number] PATHOLOGIST CRAFT DEMONSTRATOR MONIK SILVESTRE M.D. Performed By: #### F Jason MARIELLA, CBC ####[place] [id number] [facility] Hematocrit [Volume Fraction] of Blood by Automated countOrdered By: Sammie Gonzalez on 11-11-2023 Hematocrit (Bld) [Volume fraction] 39.9 % Normal 34.0-46.4 [facility] Comment on above: Performed By: #### F E, MARIELLA, CBC ####[address] Hemoglobin [Mass/volume] in BloodOrdered By: Sammie Gonzalez on 11-11-2023 Hemoglobin (Bld) [Mass/Vol] 13.0 g/dL Normal 11.8-15.4 [facility] Comment on above: Performed By: #### F E, MARIELLA, CBC ####[place] [id number] [facility] Iron [Mass/volume] in Serum or PlasmaOrdered By: Sammie Gonzalez on 11-11-2023 Iron [Mass/Vol] 93 ug/dL Normal 50-212 [facility] Comment on above: Performed By: #### F E, MARIELLA, CBC ####[place] [id number] [facility] Leukocytes [#/volume] correc jana for nucleated erythrocytes in Blood by Automated counOrdered By: Sammie Gonzalez on 11-11-2023 WBC corrected for nucl RBC Auto (Bld) [#/Vol] 8.7 10*3/uL 3.8-11.6 [facility] [place] Leukocytes [#/volume] in Blo od by Automated countOrdered By: Sammie Gonzalez on 11-11-2023 WBC (Bld) [#/Vol] 8.7 10*3/uL Normal 3.8-11.6 [facility] Comment on above: Performed By: #### F E, MARIELLA, CBC ####[address] Lymphocytes [#/volume] in Bl ood by Automated countOrdered By: Sammie Gonzalez on 11-11-2023 Lymphocytes (Bld) [#/Vol] 3.7 10*3/uL Normal 1.00-4.8 [facility] [place] Comment on above: Performed By: #### F E, MARIELLA, CBC ####[address] Lymphocytes/100 leukocytes i n Blood by Automated countOrdered By: Sammie Gonzalez on 11-11-2023 Lymphocytes/100 WBC (Bld) 42.6 % Normal . [facility] [place] Comment on above: Performed By: #### F E, MARIELLA, CBC ####[address] MCH [Entitic mass] by Automa jana countOrdered By: Sammie Gonzalez on 11-11-2023 MCH (RBC) [Entitic mass] 30.0 pg Normal 24.7-34.3 [facility] [place] Comment on above: Performed By: #### F E, MARIELLA, CBC ####[address] MCHC Auto (RBC) [Mass/Vol]Or dered By: Sammie Gonzalez on 11-11-2023 MCHC (RBC) [Mass/Vol] 32.6 g/dL 32.0-35.[address] [facility] MCV [Entitic volume] by Auto mated countOrdered By: Sammie Gonzalez on 11-11-2023 MCV (RBC) [Entitic vol] 92.1 fL Normal 80-100 [facility] Comment on above: Performed By: #### F Jason, MARIELLA, CBC ####[address] Neutrophils [#/volume] in Bl ood by Automated countOrdered By: Sammie Gonzalez on 11-11-2023 Neutrophils (Bld) [#/Vol] 4.0 10*3/uL Normal 1.8-7.7 [facility] [place] Comment on above: Performed By: #### F Jason, MARIELLA, CBC ####[address] Nucleated erythrocytes [Pres ence] in Blood by Automated countOrdered By: Sammie Gonzalez on 11-11-2023 Nucleated RBC Auto Ql (Bld) 0.1 /100{WBC} 0-0.5 [facility] [place] Platelet mean volume [Entiti c volume] in Blood by Automated countOrdered By: Sammie Gonzalez on 11-11-2023 Platelet mean volume (Bld) [Entitic vol] 9.0 fL Normal 6.3-10.7 [facility] [place] Comment on above: Performed By: #### F Jason, MARIELLA, CBC ####[address] Platelets [#/volume] in Bloo d by Automated countOrdered By: Sammie Gonzalez on 11-11-2023 Platelets (Bld) [#/Vol] 363 10*3/uL Normal 150-450 [facility] [place] Comment on above: Performed By: #### F Jason, MARIELLA, CBC ####[place] [id number] [facility] CNOVon 09-28-2023 CNOV Office Visit (RHEUAV ) KOURTNEY NOVAK ([id number]) 1975 F Date Time Provider Department 1/15/24 3:00 PM ZEINAB WOOD During your visit [...] the axilla (more content not included)... Normal [facility] CNPNon 07-02-2023 CNPN Telephone ([facility]) KOURTNEY NOVAK ([id number]) 1975 F Date Time Provider Department 07/02/23 ERIK PINEDA [facility] During your visit today, we recorded the following information about you: Mk Too Justine 07/02/2023 3:07 PM Signed General Call Caller : Pt Contact Reason for Call : Pt would like to go forward w scheduling surgery. However, she would like surgery to be scheduled in March 2024, pt would like to discuss further Patient requesting return call ? Yes Mario Alberto Phillips RN 07/06/2023 3:24 PM Signed Spoke with Ms. Kourtney Novak. We discussed that it is so far out to schedule surgery in March 2024. We discussed option of possible surgery dates. She will be contacted during late December- January 2024 to confirm the date of surgery and schedule the preoperative appointments. Mario Alberto Phillips RN, Meter Tester Allergies As of Date: 07/02/2023 (No Known Allergies) Date Reviewed: 06/30/2023 Reviewed by: Heather Moy, MARILEE.CLINICAL SPECIALIST - Fully Assessed Reason for Visit: Patient [...] Status:Closed by MARIO ALBERTO PHILLIPS on 07/06/23 [facility] CNOVon 06-30-2023 CNOV Office Visit (NSCAMN ) KOURTNEY NOVAK ([id number]) 1975 F Date Time Provider Department 06/30/23 10:30 AM [facility] During your visit today, we recorded the following information about you: Temperature Pulse Respiration Blood pressure 98.7 degrees 103/minute 18/minute 117/58 Weight Height 101.9 kg 1.64 m Erik Pineda MD 07/11/2023 2:03 PM Signed SECTION OF SKULL BASE SURGERY MINIMALLY INVASIVE CRANIAL BASE AND PITUITARY SURGERY PROGRAM [facility] [place] CC: Patient Care Team: Sammie Gonzalez MD as PCP - General (Family Medicine) Montse Lou DO - [facility] ASSESSMENT: In summary, Kourtney Novak is [...] and follow-up via virtual visit. Heather Moy APRN.CLINICAL SPECIALIST I have reviewed the progess note obtained [...] which included preparing to see the patient, [id number] patient care, completing clinical documentation, performing a [...] Former Smo (more content not included)... Normal [facility] CNOVon 06-01-2023 CNOV Office Visit (NSCAMN ) KOURTNEY NOVAK ([id number]) 1975 F Date Time Provider Department 06/01/23 7:00 AM MONTSE LOU NSC[facility]N During your visit today, we recorded the following information about you: Temperature Pulse Respiration Blood pressure 99.3 degrees 93/minute 18/minute 116/54 Weight Height 101.9 kg 1.64 m Montes Lou DO, PhD 06/01/2023 9:24 AM Signed [facility] New Patient Consultation Referred by Sammie Gonzalez MD [address] [place] [id number] Diagnosis: Multiple meningioma's with interval growth since 2015. Subjective History of Present Illness: Kourtney Novak is a 47 year old right handed female referred to [facility] by her PCP due to interval growth of known meningioma's since 2015. She started noticing imbalance a few months ago, leaning and veering to her right. She takes Depo shot per CEO NA. She has daily tension headaches x 10 [...] had ischemic stroke. 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 She lives in [place]. Interval History: 06/01/2023: Patient presents to establish care with [facility] BTI and to discuss treatment options [...] cataracts, H (more content not included)... Normal [facility] Alanine aminotransferase [En zymatic activity/volume] in Serum or PlasmaOrdered By: Sammie Gonzalez on 05-22-2023 ALT [Catalytic activity/Vol] 14 U/L 7-52 [facility] [place] Albumin [Mass/volume] in Ser um or Plasma by Bromocresol green (BCG) dye binding methoOrdered By: Sammie Gonzalez on 05-22-2023 Albumin BCG dye [Mass/Vol] 4.1 g/dL 3.5-5.7 [facility] [place] Alkaline phosphatase [Enzyma tic activity/volume] in Serum or PlasmaOrdered By: Sammie Gonzalez on 05-22-2023 ALP [Catalytic activity/Vol] 45 U/L 34-104 [facility] [place] Aspartate aminotransferase [ Enzymatic activity/volume] in Serum or PlasmaOrdered By: Sammie Gonzalez on 05-22-2023 AST [Catalytic activity/Vol] 12 U/L 13-39 [facility] [place] Basophils Auto (Bld) [#/Vol] Ordered By: Sammie Gonzalez on 05-22-2023 Basophils (Bld) [#/Vol] 0.1 10*3/uL 0.0-0.2 [facility] [place] Basophils/100 WBC Auto (Bld) Ordered By: Sammie Gonzalez on 05-22-2023 Basophils/100 WBC (Bld) 0.9 % . [facility] Bilirubin.total [Mass/volume ] in Serum or PlasmaOrdered By: Sammie Gonzalez on 05-22-2023 Bilirubin [Mass/Vol] 0.3 mg/dL 0.3-1.0 [facility] Calcium [Mass/volume] in Ser um or PlasmaOrdered By: Sammie Gonzalez on 05-22-2023 Calcium [Mass/Vol] 9.5 mg/dL 8.6-10.3 [facility] Carbon dioxide, total [Moles /volume] in Serum or PlasmaOrdered By: Sammie Gonzalez on 05-22-2023 CO2 [Moles/Vol] 25.4 mmol/L 21.0-31.0 [facility] Chloride [Moles/volume] in S micki or PlasmaOrdered By: Sammie Gonzalez on 05-22-2023 Chloride [Moles/Vol] 106 mmol/L 98-107 [facility] Cholesterol [Mass/volume] in Serum or PlasmaOrdered By: Sammie Gonzalez on 05-22-2023 Cholesterol [Mass/Vol] 182 mg/dL 140-200 [place] Comment on above: Chol less than 200 m g/dl low riskChol 201-239 mg/dl borderline riskChol 240 mg/dl and greater high risk Cholesterol in LDL Calc [Mas s/Vol]Ordered By: Sammie Gonzalez on 05-22-2023 Cholesterol in LDL [Mass/Vol] 58 mg/dL 0-100 [facility] [place] Comment on above: LDL ATP III CLASSIFI CATIONLDL less than 100 mg/dL OptimalLDL 100-129 mg/dL Near or above optimalLDL 130-159 mg/dL Borderline highLDL 160-189 mg/dL HighLDL greater than 189 mg/dL Very high Cholesterol in VLDL Calc [Ma ss/Vol]Ordered By: Sammie Gonzalez on 05-22-2023 Cholesterol in VLDL [Mass/Vol] 44 mg/dL [facility] [place] Creatinine [Mass/volume] in Serum or PlasmaOrdered By: Sammie Gonzalez on 05-22-2023 Creatinine [Mass/Vol] 0.89 mg/dL 0.60-1.[address] [facility] Eosinophils Auto (Bld) [#/Vo l]Ordered By: Sammie Gonzalez on 05-22-2023 Eosinophils (Bld) [#/Vol] 0.1 10*3/uL 0.0-0.45 [facility] [place] Eosinophils/100 WBC Auto (Bl d)Ordered By: Sammie Gonzalez on 05-22-2023 Eosinophils/100 WBC (Bld) 1.3 % . [facility] [place] Erythrocyte distribution wid th Auto (RBC) [Ratio]Ordered By: Sammie Gonzalez on 05-22-2023 Erythrocyte distribution width (RBC) [Ratio] 20.4 % 11.9-15.3 [facility] [place] Ferritin [Mass/volume] in Se rum or PlasmaOrdered By: Sammie Gonzalez on 05-22-2023 Ferritin [Mass/Vol] 147.2 ng/mL 11.0-306.8 [facility] Globulin Calc (S) [Mass/Vol] Ordered By: Sammie Gonzalez on 05-22-2023 Globulin (S) [Mass/Vol] 1.8 g/dL [facility] Glucose [Mass/volume] in Ser um [...] from glycated hemoglobin (Bld) [Mass/Vol] 105 mg/dL [facility] [place] Hematocrit Auto (Bld) [Volum e fraction]Ordered By: Sammie Gonzalez on 05-22-2023 Hematocrit (Bld) [Volume fraction] 37.0 % 34.0-46.4 [facility] [place] Hemoglobin A1c percentageOrd ered By: Sammie Gonzalez on 05-22-2023 HbA1c (Bld) [Mass fraction] 5.3 % 4.3-5.6 [facility] [place] Comment on above: Increased risk for d iabetes: 5.7 - 6.4diabetes: >6.4glycemic control for adults with diabetes: <7.0 Hemoglobin [Mass/volume] in BloodOrdered By: Sammie Gonzalez on 05-22-2023 Hemoglobin (Bld) [Mass/Vol] 11.9 g/dL 11.8-15.4 [facility] [place] Iron [Mass/volume] in Serum or PlasmaOrdered By: Sammie Gonzalez on 05-22-2023 Iron [Mass/Vol] 57 ug/dL 50-212 [facility] [place] Leukocytes [#/volume] correc jana for nucleated erythrocytes in Blood by Automated counOrdered By: Sammie Gonzalez on 05-22-2023 WBC corrected for nucl RBC Auto (Bld) [#/Vol] 9.6 10*3/uL 3.8-11.6 [facility] [place] Lymphocytes Auto (Bld) [#/Vo l]Ordered By: Sammie Gonzalez on 05-22-2023 Lymphocytes (Bld) [#/Vol] 2.2 10*3/uL 1.00-4.8 [facility] [place] Lymphocytes/100 WBC Auto (Bl d)Ordered By: Sammie Gonzalez on 05-22-2023 Lymphocytes/100 WBC (Bld) 22.5 % . [facility] [place] MCH Auto (RBC) [Entitic mass ]Ordered By: Sammie Gonzalez on 05-22-2023 MCH (RBC) [Entitic mass] 27.7 pg 24.7-34.3 [facility] [place] MCHC Auto (RBC) [Mass/Vol]Or dered By: Sammie Gonzalez on 05-22-2023 MCHC (RBC) [Mass/Vol] 32.2 g/dL 32.0-35.0 [facility] MCV Auto (RBC) [Entitic vol] Ordered By: Sammie Gonzalez on 05-22-2023 MCV (RBC) [Entitic vol] 85.8 fL 80-100 [facility] Monocytes Auto (Bld) [#/Vol] Ordered By: Sammie Gonzalez on 05-22-2023 Monocytes (Bld) [#/Vol] 1.0 10*3/uL 0.0-0.8 [facility] [place] Monocytes/100 WBC Auto (Bld) Ordered By: Sammie Gonzalez on 05-22-2023 Monocytes/100 WBC (Bld) 9.9 % . [facility] Neutrophils Auto (Bld) [#/Vo l]Ordered By: Sammie Gonzalez on 05-22-2023 Neutrophils (Bld) [#/Vol] 6.3 10*3/uL 1.8-7.7 [facility] [place] Neutrophils/100 WBC Auto (Bl d)Ordered By: Sammie Gonzalez on 05-22-2023 Neutrophils/100 WBC (Bld) 65.4 % . [facility] [place] No Panel InformationOrdered By: Sammie Gonzalez on 05-22-2023 Estimated GFR (CKD-EPI) > 60.0 mL/Min [facility] [place] [facility] Creatinine Clearance (Chem N/A [facility] [place] Nucleated erythrocytes [Pres ence] in Blood by Automated countOrdered By: Sammie Gonzalez on 05-22-2023 Nucleated RBC Auto Ql (Bld) 0.1 /100{WBC} 0-0.5 [facility] [place] Platelet mean volume Auto (B ld) [Entitic vol]Ordered By: Sammie Gonzalez on 05-22-2023 Platelet mean volume (Bld) [Entitic vol] 9.0 fL 6.3-10.7 [facility] [place] Platelets Auto (Bld) [#/Vol] Ordered By: Sammie Gonzalez on 05-22-2023 Platelets (Bld) [#/Vol] 339 10*3/uL 150-450 [facility] [place] Potassium [Moles/volume] in Serum or PlasmaOrdered By: Sammie Gonzalez on 05-22-2023 Potassium [Moles/Vol] 3.9 mmol/L 3.5-5.[address] [facility] Protein [Mass/volume] in Ser um or PlasmaOrdered By: Sammie Gonzalez on 05-22-2023 Protein [Mass/Vol] 5.9 g/dL 6.4-8.9 [facility] RBC Auto (Bld) [#/Vol]Ordere d By: Sammie Gonzalez on 05-22-2023 RBC (Bld) [#/Vol] 4.31 10*6/uL 3.60-5.00 [facility] Serum or plasma albumin/glob ulin mass ratioOrdered By: Sammie Gonzalez on 05-22-2023 Albumin/Globulin [Mass ratio] 2.3 {ratio} [facility] [place] Serum or plasma anion gap de terminationOrdered By: Sammie Gonzalez on 05-22-2023 Anion gap [Moles/Vol] 10.5 mmol/L 6.0-15.0 [facility] Serum or plasma high density lipoprotein (HDL) cholesterol measurementOrdered By: Sammie Gonzalez on 05-22-2023 Cholesterol in HDL [Mass/Vol] 79 mg/dL 23-92 [facility] [place] Comment on above: HDL CHOL ATP-III CLA SSIFICATION Cardiovascular RiskHDL > or equal to 60 mg/dL LOWHDL < 40 mg/dL HIGH Serum or plasma total choles terol/high density lipoprotein (HDL) cholesterol mass ratOrdered By: Sammie Gonzalez on 05-22-2023 Cholesterol.total/Tali sterol in HDL [Mass ratio] 2.3 {ratio} <5.0 [facility] [place] Sodium [Moles/volume] in Ser um or PlasmaOrdered By: Sammie Gonzalez on 05-22-2023 Sodium [Moles/Vol] 138 mmol/L 136-145 [facility] Thyrotropin [Units/volume] i n Serum or PlasmaOrdered By: Sammie Gonzalez on 05-22-2023 TSH Qn 3.27 m[IU]/L 0.45-5.33 [facility] [place] Thyroxine (T4) free [Mass/vo lume] in Serum or PlasmaOrdered By: Sammie Gonzalez on 05-22-2023 Free T4 [Mass/Vol] 0.91 ng/dL 0.61-1.12 [facility] Triglyceride [Mass/volume] i n Serum or PlasmaOrdered By: Sammie Gonzalez on 05-22-2023 Triglyceride [Mass/Vol] 223 mg/dL 0-149 [facility] Comment on above: TRIG ATP III CLASSIF ICATIONTRIG less than 150 mg/dL NormalTRIG 150-199 mg/dL Borderline highTRIG 200-500 mg/dL High TRIG greater than 500 mg/dL Very highStandard traceable to the Center for Disease Conrtrol and Prevention (CDC) test method. Urea nitrogen [Mass/volume] in Serum or PlasmaOrdered By: Sammie Gonzalez on 05-22-2023 Urea nitrogen [Mass/Vol] 10 mg/dL 7-25 [facility] [place] WBC Auto (Bld) [#/Vol]Ordere d By: Sammie Gonzalez on 05-22-2023 WBC (Bld) [#/Vol] 9.6 10*3/uL 3.8-11.6 [facility] Basophils Auto (Bld) [#/Vol] Ordered By: Sammie Gonzalez on 04-15-2023 Basophils (Bld) [#/Vol] 0.1 10*3/uL 0.0-0.2 [facility] [place] Basophils/100 WBC Auto (Bld) Ordered By: Sammie Gonzalez on 04-15-2023 Basophils/100 WBC (Bld) 0.8 % . [facility] Eosinophils Auto (Bld) [#/Vo l]Ordered By: Sammie Gonzalez on 04-15-2023 Eosinophils (Bld) [#/Vol] 0.1 10*3/uL 0.0-0.45 [facility] [place] Eosinophils/100 WBC Auto (Bl d)Ordered By: Sammie Gonzalez on 04-15-2023 Eosinophils/100 WBC (Bld) 1.3 % . [facility] [place] Erythrocyte distribution wid th Auto (RBC) [Ratio]Ordered By: Sammie Gonzalez on 04-15-2023 Erythrocyte distribution width (RBC) [Ratio] 15.8 % 11.9-15.3 [facility] [place] Ferritin [Mass/volume] in Se rum or PlasmaOrdered By: Sammie Gonzalez on 04-15-2023 Ferritin [Mass/Vol] 5.1 ng/mL 11.0-306.8 [facility] Hematocrit Auto (Bld) [Volum e fraction]Ordered By: Sammie Gonzalez on 04-15-2023 Hematocrit (Bld) [Volume fraction] 35.0 % 34.0-46.4 [facility] [place] Hemoglobin [Mass/volume] in BloodOrdered By: Sammie Gonzalez on 04-15-2023 Hemoglobin (Bld) [Mass/Vol] 11.2 g/dL 11.8-15.4 [facility] [place] Iron [Mass/volume] in Serum or PlasmaOrdered By: Sammie Gonzalez on 04-15-2023 Iron [Mass/Vol] 18 ug/dL 50-212 [facility] [place] Leukocytes [#/volume] correc jana for nucleated erythrocytes in Blood by Automated counOrdered By: Sammie Gonzalez on 04-15-2023 WBC corrected for nucl RBC Auto (Bld) [#/Vol] 9.6 10*3/uL 3.8-11.6 [facility] [place] Lymphocytes Auto (Bld) [#/Vo l]Ordered By: Sammie Gonzalez on 04-15-2023 Lymphocytes (Bld) [#/Vol] 2.2 10*3/uL 1.00-4.8 [facility] [place] Lymphocytes/100 WBC Auto (Bl d)Ordered By: Sammie Gonzalez on 04-15-2023 Lymphocytes/100 WBC (Bld) 23.3 % . [facility] [place] MCH Auto (RBC) [Entitic mass ]Ordered By: Sammie Gonzalez on 04-15-2023 MCH (RBC) [Entitic mass] 26.0 pg 24.7-34.3 [facility] [place] MCHC Auto (RBC) [Mass/Vol]Or dered By: Sammie Gonzalez on 04-15-2023 MCHC (RBC) [Mass/Vol] 32.0 g/dL 32.0-35.0 [facility] MCV Auto (RBC) [Entitic vol] Ordered By: Sammie Gonzalez on 04-15-2023 MCV (RBC) [Entitic vol] 81.2 fL 80-100 [facility] Monocytes Auto (Bld) [#/Vol] Ordered By: Sammie Gonzalez on 04-15-2023 Monocytes (Bld) [#/Vol] 0.7 10*3/uL 0.0-0.8 [facility] [place] Monocytes/100 WBC Auto (Bld) Ordered By: Sammie Gonzalez on 04-15-2023 Monocytes/100 WBC (Bld) 7.7 % . [facility] Neutrophils Auto (Bld) [#/Vo l]Ordered By: Sammie Gonzalez on 08-02-2023 Neutrophils (Bld) [#/Vol] 6.4 10*3/uL 1.8-7.7 [facility] [place] Neutrophils/100 WBC Auto (Bl d)Ordered By: Sammie Gonzalez on 04-15-2023 Neutrophils/100 WBC (Bld) 66.9 % . [facility] [place] Nucleated erythrocytes [Pres ence] in Blood by Automated countOrdered By: Sammie Gonzalez on 04-15-2023 Nucleated RBC Auto Ql (Bld) 0.4 /100{WBC} 0-0.5 [facility] [place] Platelet mean volume Auto (B ld) [Entitic vol]Ordered By: Sammie Gonzalez on 04-15-2023 Platelet mean volume (Bld) [Entitic vol] 9.1 fL 6.3-10.7 [facility] [place] Platelets Auto (Bld) [#/Vol] Ordered By: Sammie Gonzalez on 04-15-2023 Platelets (Bld) [#/Vol] 427 10*3/uL 150-450 [facility] [place] RBC Auto (Bld) [#/Vol]Ordere d By: Sammie Gonzalez on 04-15-2023 RBC (Bld) [#/Vol] 4.31 10*6/uL 3.60-5.00 [facility] WBC Auto (Bld) [#/Vol]Ordere d By: Sammie Gonzalez on 04-15-2023 WBC (Bld) [#/Vol] 9.6 10*3/uL 3.8-11.6 [facility] BNPon 10-11-2022 Natriuretic peptide B (Bld) [Mass/Vol] 173.0 pg/mL Normal <=450.0 [facility] Comment on above: Performed By: #### L ACT #### [facility] [address] [place], [place] [address] Dr. Ko Durbin CBC W MANUAL DIFFon 10-11-19 23 ATYPICAL LYMPH # 0.18 103/ul Normal [facility] Comment on above: Performed By: #### C BCMAN #### [facility] [address] [place], [place] [address] Dr. Ko Durbin ATYPICAL LYMPH % 2 % Normal [facility] Comment on above: Performed By: #### C BCCHRISTIANO #### [facility] [address] [place] [address] Dr. Ko Durbin BAND # 0.0 103/ul Normal 0.0-0.3 [facility] Comment on above: Performed By: #### C BCCHRISTIANO #### [facility] [address] [place] [address] Dr. Ko Durbin BAND % 0 % Normal 0-5 [facility] Comment on above: Performed By: #### C BCCHRISTIANO #### [facility] [address] [place] [address] Dr. Ko Durbin BASOM # 0.00 103/ul Normal 0.00-0.10 [facility] Comment on above: Performed By: #### C MARSHA #### [facility] [address] [place] [address] Dr. Ko Durbin BASOM % 0.0 % Critically low 0.2-2.0 [facility] Comment on above: Performed By: #### C MARSHA #### [facility] [address] [place] [address] Dr. Ko Durbin BLAST # Normal [facility] Comment on above: Performed By: #### C MARSHA #### [facility] [address] [place] [address] Dr. Ko Durbin BLAST % Normal [facility] Comment on above: Performed By: #### C MARSHA #### [facility] [address] [place] [address] Dr. Ko Durbin CORRECTED WBC Normal 4.0-11.0 [facility] Comment on above: Performed By: #### C MARSHA #### [facility] [address] [place] [address] Dr. Ko Durbin EOS # 0.00 103/ul Normal 0.00-0.70 [facility] Comment on above: Performed By: #### C BCCHRISTIANO #### [facility] [address] [place] [address] Dr. Ko Durbin EOS% 0.0 % Critically low 0.9-7.0 [facility] Comment on above: Performed By: #### C MARSHA #### [facility] [address] [place] [address] [address] Ko Durbin HCT 32.8 % Critically low 36.0-48.0 [facility] Comment on above: Performed By: #### C MARSHA #### [facility] [address] [place] [address] [address] Ko Durbin HGB 11.1 g/dl Critically low 12.0-16.0 [facility] Comment on above: Performed By: #### C MARSHA #### [facility] [address] [place] [address] [address] Ko Durbin LYMPHM # 0.18 103/ul Critically low 1.20-3.80 [facility] Comment on above: Performed By: #### C MARSHA #### [facility] [address] [place] [address] Dr. Ko Durbin LYMPHM% 2.0 % Critically low 20.5-60.0 [facility] Comment on above: Performed By: #### C MARSHA #### [facility] [address] [place] [address] Dr. Ko Durbin MCH 27.7 pg Normal 26.7-34.0 [facility] Comment on above: Performed By: #### C MARSHA #### [facility] [address] [place] [address] Dr. Ko Durbin MCHC 33.8 g/dl Normal 29.9-35.2 [facility] Comment on above: Performed By: #### C MARSHA #### [facility] [address] [place] [address] Dr. Ko Durbin MCV 81.8 fL Normal 81.0-99.0 [facility] Comment on above: Performed By: #### C MARSHA #### [facility] [address] [place] [address] Dr. Ko Durbin METAMYELOCYTE # Normal [facility] [place] [facility] Comment on above: Performed By: #### Ryan LARSON #### [facility] [address] [place] [address] Dr. Ko Durbin METAMYELOCYTE % Normal [facility] Comment on above: Performed By: #### C MARSHA #### [facility] [address] [place] [address] Dr. Ko Durbin MONOM# 0.09 103/ul Critically low 0.30-0.80 [facility] Comment on above: Performed By: #### C MARSHA #### [facility] [address] [place] [address] Dr. Ko Durbin MONOM% 1.0 % Critically low 1.7-12.0 [facility] Comment on above: Performed By: #### C MARSHA #### [facility] [address] [place] [address] Dr. Ko Durbin MPV 9.8 fL Normal 9.5-13.5 [facility] Comment on above: Performed By: #### C MARSHA #### [facility] [address] [place] [address] Dr. Ko Durbin MYELOCYTE # Normal [facility] Comment on above: Performed By: #### C MARSHA #### [facility] Laboratory [address] [place] [address] Dr. Ko Durbin MYELOCYTE % Normal [facility] Comment on above: Performed By: #### C MARSHA #### [facility] [address] [place] [address] Dr. Ko Durbin NRBC Normal [facility] Comment on above: Performed By: #### C MARSHA #### [facility] [address] [place] [address] Dr. Ko Durbin PLT 375 103/ul Normal 150-450 [facility] Comment on above: Performed By: #### C MARSHA #### [facility] [address] [place] [address] Dr. Ko Durbin RBC 4.01 106/ul Critically low 4.20-5.40 [facility] Comment on above: Performed By: #### C MARSHA #### [facility] [address] [place] [address] Dr. Ko Durbin RDW 13.5 % Normal 11.0-15.0 [facility] Comment on above: Performed By: #### C BCMAN #### [facility] [address] [address] [address] Ko Durbin SEG # 8.55 103/ul Critically high 1.40-6.50 [facility] Comment on above: Performed By: #### C BCMAN #### [facility] [address] [address] [address] Ko Durbin SEG % 95.0 % Critically high 43.0-75.0 [facility] Comment on above: Performed By: #### C BCMAN #### [facility] [address] [address] [address] Ko Durbin WBC 9.0 103/ul Normal 4.0-11.0 [facility] Comment on above: Performed By: #### C BCMAN #### [facility] [address] [address] [address] Ko Durbin POINT OF CARE GLUCOSEon 09-15 Glucose [Mass/Vol] 98 mg/dL Normal 74-106 [facility] Comment on above: Performed By: #### L ACT #### [facility] [address] [place] [address] Dr. Ko Durbin Glucose [Mass/Vol] 158 mg/dL Critically high 74-106 [facility] Comment on above: Performed By: #### P OCGLUC #### [facility] [address] [address] [address] Ko Durbin PROF 14(COMP METB)on 023 Albumin [Mass/Vol] 3.7 g/dL Normal 3.4-5.0 [facility] Comment on above: Performed By: #### L ACT #### [facility] [address] [address] [address] Ko Durbin Albumin/Globulin [Mass ratio] 1.2 {ratio} Normal [facility] Comment on above: Performed By: #### L ACT #### [facility] [address] [address] [address] Ko Durbin ALP [Catalytic activity/Vol] 42 U/L Critically low 46-116 [facility] Comment on above: Performed By: #### L ACT #### [facility] [address] [place] [address] Dr. Ko Durbin ALT [Catalytic activity/Vol] 30 U/L Normal 14-59 [facility] Comment on above: Performed By: #### L ACT #### [facility] [address] [address] [address] Ko Durbin Anion gap [Moles/Vol] 17.1 mmol/L Normal [facility] Comment on above: Performed By: #### L ACT #### [facility] [address] [address] [address] Ko Durbin AST [Catalytic activity/Vol] 15 U/L Normal 15-37 [facility] Comment on above: Performed By: #### L ACT #### [facility] [address] [address] [address] Ko Durbin Bilirubin [Mass/Vol] 0.2 mg/dL Normal 0.2-1.0 [facility] Comment on above: Performed By: #### L ACT #### [facility] [address] [address] [address] Ko Durbin Calcium [Mass/Vol] 9.6 mg/dL Normal 8.5-10.1 [facility] Comment on above: Performed By: #### L ACT #### [facility] [address] [address] [address] Ko Durbin Chloride [Moles/Vol] 100 mmol/L Normal 98-107 [facility] Comment on above: Performed By: #### L ACT #### [facility] [address] [address] [address] Ko Durbin CO2 [Moles/Vol] 22.3 mmol/L Normal 21.0-32.0 [facility] Comment on above: Performed By: #### L ACT #### [facility] [address] [address] [address] Ko Durbin Creatinine [Mass/Vol] 1.10 mg/dL Critically high 0.55-1.02 [facility] Comment on above: Performed By: #### L ACT #### [facility] [address] [address] [address] Ko Durbin EGFR-AF JAMAICAN >60 Normal >=60 [facility] Comment on above: Performed By: #### L ACT #### [facility] [address] [address] [address] Ko Durbin EGFR-NON AF JAMAICAN 54 mL/min/1.73m2 Critically low >=60 [facility] Comment on above: Performed By: #### L ACT #### [facility] [address] [address] [address] Ko Durbin Globulin (S) [Mass/Vol] 3.1 g/dL Normal [facility] Comment on above: Performed By: #### L ACT #### [facility] [address] [address] [address] Ko Durbin Glucose [Mass/Vol] 180 mg/dL Critically high 74-106 [facility] Comment on above: Performed By: #### L ACT #### [facility] [address] [address] [address] Ko Durbin Potassium [Moles/Vol] 3.4 mmol/L Critically low 3.5-5.1 [facility] Comment on above: Performed By: #### L ACT #### [facility] [address] [address] [address] Ko Durbin Protein [Mass/Vol] 6.8 g/dL Normal 6.4-8.2 [facility] Comment on above: Performed By: #### L ACT #### [facility] [address] [address] [address] Ko Durbin Sodium [Moles/Vol] 136 mmol/L Normal 136-145 [facility] Comment on above: Performed By: #### L ACT #### [facility] [address] [address] [address] Ko Durbin Urea nitrogen [Mass/Vol] 19.0 mg/dL Critically high 7.0-18.0 [facility] Comment on above: Performed By: #### L ACT #### [facility] [address] [place] [address] Dr. Ko Durbin Urea nitrogen/Creatinine [Mass ratio] 17.3 mg/mg Normal [facility] Comment on above: Performed By: #### L ACT #### [facility] [address] [place] [address] Dr. Ko Durbin BNPon 10-10-2022 Natriuretic peptide B (Bld) [Mass/Vol] 291.0 pg/mL Normal <=450.0 [facility] Comment on above: Performed By: #### C MP, CMADM, BNP #### [facility] [address] [place] [address] Dr. Ko Durbin CARDIAC PERRY ADMITon 023 CK [Catalytic activity/Vol] 286 U/L Critically high 26-192 [facility] Comment on above: Performed By: #### C MP, CMADM, BNP #### [facility] [address] [place] [address] Dr. Ko Durbin CK.MB [Mass/Vol] 4.51 ng/mL Critically high <=3.60 [facility] Comment on above: Performed By: #### C MP, CMADM, BNP #### [facility] [address] [place] [address] Dr. Ko Durbin HSTROP 5.0 pg/mL Normal 4.0-51.3 [facility] Comment on above: Result Comment: CUT- OFF POINTS HAVE BEEN ESTABLISHED BASED ON THE FOURTH UNIVERSAL DEFINITIONS OF MYOCARDIAL INFARCTION. THE UPPER REFERENCE LIMIT (URL) OF TROPONIN, DEFINED THE 99TH PERCENTILE OF cTnI DISTRIBUTION IN A REFERENCE POPULATION, HAS BEEN CONFIRMED THE DECISION THRESHOLD FOR [place] DIAGNOSIS. Performed By: #### C MP, CMADM, BNP #### [facility] [address] [place] [address] Dr. Ko Durbin JAROD 184 ng/mL Critically high 9-82 [facility] Comment on above: Performed By: #### C MP, CMADM, BNP #### [facility] [address] [place] [address] Dr. Ko Durbin CBC AUTO DIFFon 10-10-2022 BASO # 0.0 103/ul Normal 0.0-0.1 [facility] Comment on above: Performed By: #### C BC #### [facility] [address] [place] [address] Dr. Ko Durbin Basophils/100 WBC (Bld) 0.2 % Normal 0.2-2.0 [facility] Comment on above: Performed By: #### C BC #### [facility] [address] [place] [address] Dr. Ko Durbin EO # 0.0 103/ul Normal 0.0-0.7 [facility] Comment on above: Performed By: #### C BC #### [facility] [address] [place] [address] Dr. Ko Durbin Eosinophils/100 WBC (Bld) 0.0 % Critically low 0.9-7.0 [facility] Comment on above: Performed By: #### C BC #### [facility] [address] [place] [address] Dr. Ko Durbin Erythrocyte distribution width (RBC) [Ratio] 13.7 % Normal 11.0-15.0 [facility] Comment on above: Performed By: #### C BC #### [facility] [address] [place] [address] Dr. Ko Durbin Hematocrit (Bld) [Volume fraction] 31.8 % Critically low 36.0-48.0 [facility] Comment on above: Performed By: #### C BC #### [facility] [address] [place] [address] Dr. Ko Durbin Hemoglobin (Bld) [Mass/Vol] 11.1 g/dL Critically low 12.0-16.0 [facility] Comment on above: Performed By: #### C BC #### [facility] [address] [place] [address] Dr. Ko Durbin IG # 0.11 10e3/ul Critically high 0.00-0.03 [facility] Comment on above: Performed By: #### C BC #### [facility] [address] [place] [address] Dr. Ko Durbin IG % 1.0 % Critically high 0.0-0.5 [facility] Comment on above: Performed By: #### C BC #### [facility] [address] [place] [address] Dr. Ko Durbin LYMPH # 1.8 103/ul Normal 1.2-3.8 [facility] Comment on above: Performed By: #### C BC #### [facility] [address] [place] [address] Dr. Ko Durbin Lymphocytes/100 WBC (Bld) 16.2 % Critically low 20.5-60.0 [facility] Comment on above: Performed By: #### C BC #### [facility] [address] [place] [address] Dr. Ko Durbin MANUAL DIFF REQ NO Normal [facility] Comment on above: Performed By: #### C BC #### [facility] [address] [place] [address] Dr. Ko Durbin MCH (RBC) [Entitic mass] 28.2 pg Normal 26.7-34.0 [facility] Comment on above: Performed By: #### C BC #### [facility] [address] [place] [address] Dr. Ko Durbin MCHC (RBC) [Mass/Vol] 34.9 g/dL Normal 29.9-35.2 [facility] Comment on above: Performed By: #### C BC #### [facility] [address] [place] [address] Dr. Ko Durbin MCV (RBC) [Entitic vol] 80.7 fL Critically low 81.0-99. 0 [facility] Comment on above: Performed By: #### C BC #### [facility] [address] [place] [address] Dr. Ko Durbin MONO # 0.7 103/ul Normal 0.3-0.8 [facility] Comment on above: Performed By: #### C BC #### [facility] [address] [place] [address] Dr. Ko Durbin Monocytes/100 WBC (Bld) 6.3 % Normal 1.7-12.0 [facility] Comment on above: Performed By: #### C BC #### [facility] [address] [place] [address] Dr. Ko Durbin NEUT # 8.4 103/ul Critically high 1.4-6.5 [facility] Comment on above: Performed By: #### C BC #### [facility] [address] [place] [address] Dr. Ko Durbin Neutrophils/100 WBC (Bld) 76.3 % Critically high 43.0-75.0 [facility] Comment on above: Performed By: #### C BC #### [facility] [address] [place] [address] Dr. Ko Durbin Platelet mean volume (Bld) [Entitic vol] 9.5 fL Normal 9.5-13.5 [facility] Comment on above: Performed By: #### C BC #### [facility] [address] [place] [address] Dr. Ko Durbin PLT 384 103/ul Normal 150-450 [facility] Comment on above: Performed By: #### C BC #### [facility] [address] [place] [address] Dr. Ko Durbin RBC 3.94 106/ul Critically low 4.20-5.40 [facility] Comment on above: Performed By: #### C BC #### [facility] [address] [place] [address] Dr. Ko Durbin WBC 11.0 103/ul Normal 4.0-11.0 [facility] Comment on above: Performed By: #### C BC #### [facility] [address] [place] [address] Dr. Ko Durbin CULTURE URINEon 10-10-2022 CULTURE URINE Culture Observations : NO GROWTH. Normal [facility] Comment on above: Performed By: #### U RCX #### [facility] [address] [place] [address] Dr. Ko Durbin [facility] SARS-CoV-2 (COVID-19) RNA RADHA+probe Ql (Unsp spec) Not detected Normal NOT DETECTED [facility] Comment on above: Result Comment: When diagnostic [...] for this test is supported by the Fermenter Operator of Health and Human Service's declaration that [...] used). Performed By: #### C VDTBH #### [facility] [address] [place] [address] Dr. Ko Durbin LACTATE/LACTIC ACIDon 2022 Lactate [Moles/Vol] 1.7 mmol/L Normal 0.4-1.9 [facility] Comment on above: Performed By: #### L ACT #### [facility] [address] [place] [address] Dr. Ko Durbin POINT OF CARE GLUCOSEon 09-15 Glucose [Mass/Vol] 139 mg/dL Critically high 74-106 [facility] Comment on above: Performed By: #### P OCGLUC #### [facility] [address] [place] [address] Dr. Ko Durbin Glucose [Mass/Vol] 99 mg/dL Normal 74-106 [facility] Comment on above: Performed By: #### L ACT #### [facility] [address] [place] [address] Dr. Ko Durbin PROF 14(COMP METB)on 023 Albumin [Mass/Vol] 3.9 g/dL Normal 3.4-5.0 [facility] Comment on above: Performed By: #### C MP, CMADM, BNP #### [facility] [address] [address] [address] Ko Durbin Albumin/Globulin [Mass ratio] 1.3 {ratio} Normal [facility] Comment on above: Performed By: #### C MP, CMADM, BNP #### [facility] [address] [address] [address] Ko Durbin ALP [Catalytic activity/Vol] 43 U/L Critically low 46-116 [facility] Comment on above: Performed By: #### C MP, CMADM, BNP #### [facility] [address] [place] [address] Dr. Ko Durbin ALT [Catalytic activity/Vol] 34 U/L Normal 14-59 [facility] Comment on above: Performed By: #### C MP, CMADM, BNP #### [facility] [address] [place] [address] Dr. Ko Durbin Anion gap [Moles/Vol] 16.2 mmol/L Normal [facility] Comment on above: Performed By: #### C MP, CMADM, BNP #### [facility] [address] [place] [address] Dr. Ko Durbin AST [Catalytic activity/Vol] 18 U/L Normal 15-37 [facility] Comment on above: Performed By: #### C MP, CMADM, BNP #### [facility] [address] [place] [address] Dr. Ko Durbin Bilirubin [Mass/Vol] 0.2 mg/dL Normal 0.2-1.0 [facility] Comment on above: Performed By: #### C MP, CMADM, BNP #### [facility] [address] [place] [address] Dr. Ko Durbin Calcium [Mass/Vol] 9.4 mg/dL Normal 8.5-10.1 [facility] Comment on above: Performed By: #### C MP, CMADM, BNP #### [facility] [address] [place] [address] Dr. Ko Durbin Chloride [Moles/Vol] 99 mmol/L Normal 98-107 [facility] Comment on above: Performed By: #### C MPKAREEMDM, BNP #### [facility] [address] [address] [address] Ko Durbin CO2 [Moles/Vol] 25.7 mmol/L Normal 21.0-32.0 [facility] Comment on above: Performed By: #### C MP CMADM, BNP #### [facility] [address] [place] [address] Dr. Ko Durbin Creatinine [Mass/Vol] 1.10 mg/dL Critically high 0.55-1.02 [facility] Comment on above: Performed By: #### C ARI CMADM, BNP #### [facility] [address] [place] [address] Dr. Ko Durbin EGFR-AF JAMAICAN >60 Normal >=60 [facility] Comment on above: Performed By: #### C ARI CMADM, BNP #### [facility] [address] [place] [address] Dr. Ko Durbin EGFR-NON AF JAMA[place] 54 mL/min/1.73m2 Critically low >=60 [facility] Comment on above: Performed By: #### C ARI CMADM, BNP #### [facility] [address] [place] [address] Dr. Ko Durbin Globulin (S) [Mass/Vol] 2.9 g/dL Normal T [facility] Comment on above: Performed By: #### C MP CMADM, BNP #### [facility] [address] [place] [address] Dr. Ko Durbin Glucose [Mass/Vol] 97 mg/dL Normal 74-106 [facility] Comment on above: Performed By: #### C MP CMADM, BNP #### [facility] [address] [place] [address] Dr. Ko Durbin Potassium [Moles/Vol] 3.9 mmol/L Normal 3.5-5.1 [facility] Comment on above: Performed By: #### C MP CMADM, BNP #### [facility] [address] [address] [address] Ko Durbin Protein [Mass/Vol] 6.8 g/dL Normal 6.4-8.2 [facility] Comment on above: Performed By: #### C MP, CMADM, BNP #### [facility] [address] [place] [address] Dr. Ko Durbin Sodium [Moles/Vol] 137 mmol/L Normal 136-145 [facility] Comment on above: Performed By: #### C MP, CMADM, BNP #### [facility] [address] [place] [address] Dr. Ko Durbin Urea nitrogen [Mass/Vol] 16.0 mg/dL Normal 7.0-18.0 [facility] Comment on above: Performed By: #### C MP, CMADM, BNP #### [facility] [address] [place] [address] Dr. Ko Durbin Urea nitrogen/Creatinine [Mass ratio] 14.5 mg/mg Normal [facility] Comment on above: Performed By: #### C MP, CMADM, BNP #### [facility] [address] [place] [address] Dr. Ko Durbin UA RANDOM W/MICROSCOPICon BACTERIA NONE SEEN Normal NONE SEEN [facility] Comment on above: Performed By: #### L ACT #### [facility] [address] [place] [address] Dr. Ko Durbin Bilirubin Ql (U) Negative Normal NEGATIVE [facility] Comment on above: Performed By: #### L ACT #### [facility] [address] [place] [address] Dr. Ko Durbin CAST NONE SEEN Normal NONE SEEN [facility] Comment on above: Performed By: #### L ACT #### [facility] [address] [place] [address] Dr. Ko Durbin Clarity (U) CLEAR Normal CLEAR [facility] Comment on above: Performed By: #### L ACT #### [facility] [address] [place] [address] Dr. Ko Durbin Color (U) LT. YELLOW Normal YELLOW [facility] Comment on above: Performed By: #### L ACT #### [facility] [address] [place] [address] Dr. Ko Durbin Crystals LM Nom (Urine sed) NONE SEEN Normal NONE SEEN [facility] Comment on above: Performed By: #### L ACT #### [facility] [address] [place] [address] Dr. Ko Durbin Epithelial cells LM Ql (Urine sed) NONE SEEN Normal NONE SEEN /RARE [facility] Comment on above: Performed By: #### L ACT #### [facility] [address] [place] [address] Dr. Ko Durbin Glucose Ql (U) 500 mg/dl Abnormal NEGATIVE [facility] Comment on above: Performed By: #### L ACT #### [facility] [address] [place] [address] Dr. Ko Durbin Hemoglobin Ql (U) TRACE-INTACT Abnormal NEGATIVE [facility] Comment on above: Performed By: #### L ACT #### [facility] [address] [place] [address] Dr. Ko Durbin Ketones Ql (U) Negative Normal NEGATIVE [facility] Comment on above: Performed By: #### L ACT #### [facility] [address] [place] [address] Dr. Ko Durbin LEUKOCYTES Negative Normal NEGATIVE [facility] Comment on above: Performed By: #### L ACT #### [facility] [address] [place] [address] Dr. Ko Durbin MUCOUS NONE SEEN Normal NONE SEEN [facility] Comment on above: Performed By: #### L ACT #### [facility] [address] [place] [address] Dr. Ko Durbin Nitrite Ql (U) Negative Normal NEGATIVE [facility] Comment on above: Performed By: #### L ACT #### [facility] [address] [place] [address] Dr. Ko Durbin pH (U) 5.5 [pH] Normal 5-9 [facility] Comment on above: Performed By: #### L ACT #### [facility] [address] [address] [address] Ko Durbin RBC 0-2 Normal 0-2 [facility] Comment on above: Performed By: #### L ACT #### [facility] [address] [address] [address] Ko Durbin SPEC GRAVITY <=1.005 Abnormal 1.005-<=1.0 25 [facility] Comment on above: Performed By: #### L ACT #### [facility] [address] [address] [address] Ko Durbin UA PROTEIN Negative Normal NEGATIVE/ TRACE [facility] Comment on above: Performed By: #### L ACT #### [facility] [address] [place] [address] Dr. Ko Durbin Urobilinogen Qn (U) 0.2 {Rich'U}/dL Normal 0.2 - 1. 0 [facility] Comment on above: Performed By: #### L ACT #### [facility] [address] [place] [address] Dr. Ko Durbin WBC NONE SEEN Normal NONE SEEN [facility] Comment on above: Performed By: #### L ACT #### [facility] [address] [place] [address] Dr. Ko Durbin XR CHEST 2 Von [...] LIAT MARISCAL Date: 2022-10-10 17:23 Normal [facility] XR wrist RT min 3V*on 2022 XR wrist RT min 3V* [facility] [employer] Other XR wrist RT min 3V* [facility] [employer] Other XR wrist RT min 3V* [address] [facility] [employer] Other XR wrist RT min 3V* VIVIEN [place] [id number] [employer] Other XR wrist RT min 3V* XRay Report [facility] [employer] Other XR wrist RT min 3V* Signed [employer] Other XR wrist RT min 3V* Patient: Kourtney Novak MR#: [id number] [employer] Other XR wrist RT min 3V* [id number] [employer] Other XR wrist RT min 3V* : 1975 Acct:[id number] [employer] Other XR wrist RT min 3V* Age/Sex: 46 / F ADM Date: 09/24/22 [employer] Other XR wrist RT min 3V* Loc: [facility] Room: Type : [facility] [employer] Other XR wrist RT min 3V* Attending Dr: Naz Gomes MD [employer] Other XR wrist RT min 3V* Copies to: Elyssa Gomes MD [employer] Other XR wrist RT min 3V* Ordering Provider: Elyssa Gomes MD [employer] Other XR wrist RT min 3V* Date of Service: 09/24/22 [employer] Other XR wrist RT min 3V* XR/XR wrist RT min 3V*: Osteochondrosis of lunate of right wrist [employer] Other XR wrist RT min 3V* RIGHT WRIST - 4 views [employer] Other XR wrist RT min 3V* CLINICAL HISTORY: Follow-up right wrist denervation and radial core decompression [employer] Other XR wrist RT min 3V* COMPARISON: None [employer] Other XR wrist RT min 3V* FINDINGS: [employer] Other XR wrist RT min 3V* No focal soft tissue abnormality. 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 Triquetral fracture is unchanged. Mild degenerative changes without bony erosion. [employer] Other XR wrist RT min 3V* XR/XR wrist RT min 3V* [employer] Other XR wrist RT min 3V* IMPRESSION: [facility] [employer] Other XR wrist RT min 3V* NO SIGNIFICANT DURBIN E IN WRIST FINDINGS. [employer] Other XR wrist RT min 3V* Impression dictated by: Rainer Martinez Jr., D.OEstefany09/24/2022 4:36 PM [employer] Other XR wrist RT min 3V* Dictation Location: [place] [address] [employer] Other XR wrist RT min 3V* Transcribed By: PWS 09/24/22 [facility]6 [employer] Other XR wrist RT min 3V* Dictated By: Rainer Martinez Jr DO 09/24/22 1634 [employer] Other XR wrist RT min 3V* Signed By: [employer] Other XR wrist RT min 3V* 09/24/22 1636 No [email or web address] Other Urine culture routineOrdered By: Sammie Gonzalez on 07-31-2022 Bacteria identified Cx Nom (U) 2 Days [facility] Automated erythrocytes count in urine sediment (number/area)Ordered By: Sammie Gonzalez on 07-29-2022 RBC Auto (Urine sed) [#/Area] 3-4 [HPF] 0-4 [facility] Automated leukocytes count i n urine sediment (number/area)Ordered By: Sammie Gonzalez on 07-29-2022 WBC Auto (Urine sed) [#/Area] None seen [HPF] 0-4 [facility] Bilirubin Test strip Ql (U)O rdered By: Sammie Gonzalez on 07-29-2022 Bilirubin Ql (U) Negative Negative [facility] Color Auto (U)Ordered By: Do ugten Gonzalez on 07-29-2022 Color (U) Yellow Yellow [facility] Ketones Auto test strip (U) [Mass/Vol]Ordered By: Sammie Gonzalez on 07-29-2022 Ketones (U) [Mass/Vol] Negative Negative [facility] - UrinalysisOrder ed By: Sammie Gonzalez on 07-29-2022 Hyaline casts LM Ql (Urine sed) None seen [LPF] 0-8 [facility] Nitrite Test strip Ql (U)Ord ered By: Sammie Gonzalez on 07-29-2022 Nitrite Ql (U) Negative Negative [facility] Protein Auto test strip (U) [Mass/Vol]Ordered By: Sammie Gonzalez on 07-29-2022 Protein (U) [Mass/Vol] Negative Negative [place] Specific gravity Auto test s trip (U) [Rel density]Ordered By: Sammie Gonzalez on 07-29-2022 Specific gravity (U) [Rel density] 1.013 1.001-1.030 [facility] Squamous epithelial cells de tection in urine sediment by light microscopyOrdered By: Sammie Gonzalez on 07-29-2022 Epithelial cells.squamous LM Ql (Urine sed) None seen [HPF] 0-2 [facility] Urine bacteria detection by automated methodOrdered By: Sammie Gonzalez on 07-29-2022 Bacteria Auto Ql (U) None seen None Seen [facility] Urine clarity by refractomet ry automatedOrdered By: Sammie Gonzalez on 07-29-2022 Clarity Refractometry automated (U) Clear Clear [facility] Urine culture routineOrdered By: Sammie Gonzalez on 07-29-2022 Bacteria identified Cx Nom (U) 2 Days [facility] Urine glucose measurement by automated test strip (mass/volume)Ordered By: Sammie Gonzalez on 07-29-2022 Glucose Auto test strip (U) [Mass/Vol] >=1000 mg/dL Normal [facility] Urine hemoglobin detection b y automated test stripOrdered By: Sammie Gonzalez on 07-29-2022 Hemoglobin Auto test strip Ql (U) Trace Negative [facility] Urine leukocyte esterase det ection by automated test stripOrdered By: Sammie Gonzalez on 07-29-2022 Leukocyte esterase Auto test strip Ql (U) Negative Negative [facility] Urobilinogen Auto test strip (U) [Mass/Vol]Ordered By: Sammie Gonzalez on 07-29-2022 Urobilinogen (U) [Mass/Vol] Normal mg/dL Normal [facility] pH Auto test strip (U)Ordere d By: Sammie Gonzalez on 07-29-2022 pH (U) 6.0 [pH] 5.0-9.0 [facility] Albumin [Mass/volume] in Ser um or PlasmaOrdered By: Sammie Gonzalez on 05-01-2022 Albumin [Mass/Vol] 4.0 g/dL 3.2-5.5 [facility] Basophils Auto (Bld) [#/Vol] Ordered By: Sammie Gonzalez on 05-01-2022 Basophils (Bld) [#/Vol] 0.0 10*3/uL 0.0-0.2 [facility] Basophils/100 WBC Auto (Bld) Ordered By: Sammie Gonzalez on 05-01-2022 Basophils/100 WBC (Bld) 0.8 % . [facility] Blood hemoglobin measurement (mass/volume)Ordered By: Sammie Gonzalez on 05-01-2022 Hemoglobin (Bld) [Mass/Vol] 12.4 g/dL 11.8-15.4 [facility] Blood leukocytes automated c ount (number/volume)Ordered By: Sammie Gonzalez on 05-01-2022 WBC (Bld) [#/Vol] 6.0 10*3/uL 4.5-11.0 [facility] Cholesterol [Mass/volume] in Serum or PlasmaOrdered By: Sammie Gonzalez on 08-18-2022 Cholesterol [Mass/Vol] 189 mg/dL 140-200 [facility] Comment on above: Chol less than 200 m g/dl low risk Chol 201-239 mg/dl borderline risk Chol 240 mg/dl and greater high risk Chol less than 200 m g/dl low riskChol 201-239 mg/dl borderline riskChol 240 mg/dl and greater high risk Cholesterol in LDL Calc [Mas s/Vol]Ordered By: Sammie Gonzalez on 05-01-2022 Cholesterol in LDL [Mass/Vol] 92 mg/dL 0-100 [facility] Comment on above: LDL ATP III CLASSIFI [...] 05-01-2022 Cholesterol in VLDL [Mass/Vol] 19 mg/dL [facility] Creatinine and Glomerular fi ltration rate.predicted panel (S/P/Bld)Ordered By: Sammie Gonzalez on 05-01-2022 Creatinine [Mass/Vol] 1.06 mg/dL 0.44-1.[address] [facility] Eosinophils Auto (Bld) [#/Vo l]Ordered By: Sammie Gonzalez on 05-01-2022 Eosinophils (Bld) [#/Vol] 0.1 10*3/uL 0.0-0.45 [facility] Eosinophils/100 WBC Auto (Bl d)Ordered By: Sammie Gonzalez on 05-01-2022 Eosinophils/100 WBC (Bld) 1.2 % . [facility] Erythrocyte distribution wid th Auto (RBC) [Ratio]Ordered By: Sammie Gonzalez on 05-01-2022 Erythrocyte distribution width (RBC) [Ratio] 13.7 % 11.9-15.3 [facility] Estimated glomerular filtrat ion rate (GFR) non- AmericanOrdered By: Sammie Gonzalez on 05-01-2022 GFR/1.73 sq M.predicted among non-blacks MDRD (S/P/Bld) [Vol rate/Area] 56 mL/Min [facility] Globulin Calc (S) [Mass/Vol] Ordered By: Sammie Gonzalez on 05-01-2022 Globulin (S) [Mass/Vol] 2.3 g/dL [facility] Glucose mean value [Mass/vol ume] in Blood Estimated from glycated hemoglobinOrdered By: Sammie Gonzalez on 05-01-2022 Average glucose Estimated from glycated hemoglobin (Bld) [Mass/Vol] 117 mg/dL [facility] Hematocrit Auto (Bld) [Volum e fraction]Ordered By: Sammie Gonzalez on 05-01-2022 Hematocrit (Bld) [Volume fraction] 38.4 % 34.0-46.4 [facility] Hemoglobin A1c percentageOrd ered By: Sammie Gonzalez on 05-01-2022 HbA1c (Bld) [Mass fraction] 5.7 % 4.3-5.6 [facility] Comment on above: Increased risk for d iabetes: 5.7 - 6.4 diabetes: >6.4 glycemic control for adults with diabetes: <7.0 Increased risk for d iabetes: 5.7 - 6.4diabetes: >6.4glycemic control for adults with diabetes: <7.0 Iron [Mass/volume] in Serum or PlasmaOrdered By: Sammie Gonzalez on 05-01-2022 Iron [Mass/Vol] 48 ug/dL 40-150 [facility] Laboratory - Chemistry and C hemistry - challengeOrdered By: Sammie Gonzalez on 05-01-2022 Natriuretic peptide B (Bld) [Mass/Vol] 7.0 pg/mL 5-100 [facility] Laboratory - Hematology and Cell countsOrdered By: Sammie Gonzalez on 05-01-2022 Nucleated RBC/100 WBC (Bld) [Ratio] 0.0 % 0-0.5 [facility] Lymphocytes Auto (Bld) [#/Vo l]Ordered By: Sammie Gonzalez on 05-01-2022 Lymphocytes (Bld) [#/Vol] 1.4 10*3/uL 1.00-4.8 [facility] Lymphocytes/100 WBC Auto (Bl d)Ordered By: Sammie Gonzalez on 05-01-2022 Lymphocytes/100 WBC (Bld) 23.0 % . [facility] MCH Auto (RBC) [Entitic mass ]Ordered By: Sammie Gonzalez on 05-01-2022 MCH (RBC) [Entitic mass] 28.9 pg 24.7-34.3 [facility] MCHC Auto (RBC) [Mass/Vol]Or dered By: Sammie Gonzalez on 05-01-2022 MCHC (RBC) [Mass/Vol] 32.4 g/dL 32.0-35.0 [facility] MCV Auto (RBC) [Entitic vol] Ordered By: Sammie Gonzalez on 05-01-2022 MCV (RBC) [Entitic vol] 89.1 fL 80-100 [facility] Monocytes Auto (Bld) [#/Vol] Ordered By: Sammie Gonzalez on 05-01-2022 Monocytes (Bld) [#/Vol] 0.6 10*3/uL 0.0-0.8 [facility] Monocytes/100 WBC Auto (Bld) Ordered By: Sammie Gonzalez on 05-01-2022 Monocytes/100 WBC (Bld) 9.1 % . [facility] Neutrophils Auto (Bld) [#/Vo l]Ordered By: Sammie Gonzalez on 05-01-2022 Neutrophils (Bld) [#/Vol] 4.0 10*3/uL 1.8-7.7 [facility] Neutrophils/100 WBC Auto (Bl d)Ordered By: Sammie Gonzalez on 05-01-2022 Neutrophils/100 WBC (Bld) 65.9 % . [facility] No Panel InformationOrdered By: Sammie Gonzalez on 05-01-2022 Estimated GFR () > 60 mL/Min [facility] Comment on above: GFR estimated refere nce range: According to KDOQI guidelines, <60 ml/min/1.73m2 is sufficient to diagnose a patient with chronic kidney disease. Pharmacy Creatinine Clearance (Chem N/A [facility] Platelet mean volume Auto (B ld) [Entitic vol]Ordered By: Sammie Gonzalez on 05-01-2022 Platelet mean volume (Bld) [Entitic vol] 8.5 fL 6.3-10.7 [facility] Platelets Auto (Bld) [#/Vol] Ordered By: Sammie Gonzalez on 05-01-2022 Platelets (Bld) [#/Vol] 385 10*3/uL 150-450 [facility] Protein [Mass/volume] in Ser um or PlasmaOrdered By: Sammie Gonzalez on 05-01-2022 Protein [Mass/Vol] 6.3 g/dL 6.1-7.9 [facility] RBC Auto (Bld) [#/Vol]Ordere d By: Sammie Gonzalez on 05-01-2022 RBC (Bld) [#/Vol] 4.31 10*6/uL 3.60-5.00 [facility] Serum or plasma alanine bass otransferase measurement without P-5'-P (enzymatic activiOrdered By: Sammie Gonzalez on 05-01-2022 ALT No additional P-5'-P [Catalytic activity/Vol] 22 U/L 10-60 [facility] Serum or plasma albumin/glob ulin mass ratioOrdered By: Sammie Gonzalez on 05-01-2022 Albumin/Globulin [Mass ratio] 1.7 {ratio} [facility] Serum or plasma alkaline leela sphatase measurement (enzymatic activity/volume)Ordered By: Sammie Gonzalez on 05-01-2022 ALP [Catalytic activity/Vol] 52 U/L 32-92 [facility] Serum or plasma aspartate am inotransferase measurement (enzymatic activity/volume)Ordered By: Sammie Gonzalez on 05-01-2022 AST [Catalytic activity/Vol] 17 U/L 10-42 [facility] Serum or plasma calcium kiara urement (mass/volume)Ordered By: Sammie Gonzalez on 05-01-2022 Calcium [Mass/Vol] 9.5 mg/dL 8.2-10.2 [facility] Serum or plasma chloride aby surement (moles/volume)Ordered By: Sammie Gonzalez on 05-01-2022 Chloride [Moles/Vol] 100 mmol/L 95-114 [facility] Serum or plasma glucose kiara urement (mass/volume)Ordered [...] Cholesterol in HDL [Mass/Vol] 78 mg/dL 35-85 [facility] Comment on above: HDL CHOL ATP-III CLA SSIFICATION Cardiovascular Risk HDL > or equal to 60 mg/dL LOW HDL < 40 mg/dL HIGH HDL CHOL ATP-III CLA SSIFICATION Cardiovascular RiskHDL > or equal to 60 mg/dL LOWHDL < 40 mg/dL HIGH Serum or plasma potassium me asurement (moles/volume)Ordered By: Sammie Gonzalez on 05-01-2022 Potassium [Moles/Vol] 4.2 mmol/L 3.5-5.[address] [facility] Serum or plasma sodium measu rement (moles/volume)Ordered By: Sammie Gonzalez on 05-01-2022 Sodium [Moles/Vol] 134 mmol/L 136-146 [facility] Serum or plasma thyroxine (T 4) measurement (mass/volume)Ordered By: Sammie Gonzalez on 05-01-2022 T4 [Mass/Vol] 9.20 ug/dL 5.39-11.82 [facility] Serum or plasma total biliru bin measurement (mass/volume)Ordered By: Sammie Gonzalez on 05-01-2022 Bilirubin [Mass/Vol] 0.4 mg/dL 0.3-1.2 [facility] Serum or plasma total carbon dioxide measurement (moles/volume)Ordered By: Sammie Gonzalez on 05-01-2022 CO2 [Moles/Vol] 24.2 mmol/L 22.0-30.0 [facility] Serum or plasma total choles terol/high density lipoprotein (HDL) cholesterol mass ratOrdered By: Sammie Gonzalez on 05-01-2022 Cholesterol.total/Tali sterol in HDL [Mass ratio] 2.4 {ratio} <5.0 [facility] Serum or plasma urea nitroge n measurement (mass/volume)Ordered By: Sammie Gonzalez on 05-01-2022 Urea nitrogen [Mass/Vol] 14 mg/dL 9-23 [facility] TSH DL <= 0.005 mIU/L QnOrde red By: Sammie Gonzalez on 05-01-2022 TSH Qn 3.07 m[IU]/L 0.45-5.33 [facility] Triglyceride [Mass/volume] i n Serum or PlasmaOrdered By: Sammie Gonzalez on 05-01-2022 Triglyceride [Mass/Vol] 97 mg/dL 35-149 [facility] Comment on above: TRIG ATP [...] Gonzalez on 05-01-2022 T3RU 25 % 24-39 [facility] Comment on above: Performed at: [facility] [address] [place], [place] [id number] Director Of Search Engine Marketing: Maxim Daniel PhD, Phone: [phone] Performed at: [facility] [place] [id number] Director: Maxim Daniel PhD, Phone: [phone] XR wrist RT 2Von 01-24-2022 XR wrist RT 2V [facility] [employer] Other XR wrist RT 2V [facility] [place] [employer] Other XR wrist RT 2V [address] [facility] [employer] Other XR [place] 2[place] [address] No rt [employer] Other XR wrist RT 2V XRay Report [employer] Other XR wrist RT 2V Signed [employer] Other XR wrist RT 2V Patient: Kourtney Novak MR#: [id number] [place] [employer] Other XR wrist RT 2V [id number] [employer] Other XR wrist RT 2V : 1975 Acct:[id number] [employer] Other XR wrist RT 2V Age/Sex: 46 / F ADM Date: 01/24/22 [employer] Other XR wrist RT 2V Loc: [facility] Room: Type : [facility] [employer] Other XR wrist RT 2V Attending Dr: Naz Gomes MD [employer] Other XR wrist RT 2V Ordering Provider: Elyssa Gomes MD [employer] Other XR wrist RT 2V Date of Service: 01/24/22 [employer] Other XR wrist RT 2V XR/XR wrist RT 2V: Osteochondrosis of lunate of right wrist [employer] Other XR wrist RT 2V Copies to: Elyssa Gomes MD [employer] Other XR wrist RT 2V Right wrist 01/24/2022. [employer] Other XR wrist RT 2V CLINICAL DATA: Osteochondrosis of lunate of right wrist. [employer] Other XR wrist RT 2V FINDINGS: 2 views of the right wrist were obtained and are compared with a prior study 12/24/2021. [employer] Other XR wrist RT 2V No acute fracture or dislocation is identified. The lunate again appears sclerotic. This finding [employer] Other XR wrist RT 2V has not significantl y changed. No collapse is seen. No soft tissue swelling is visualized. [employer] Other XR wrist RT 2V XR/XR wrist RT 2V [employer] Other XR wrist RT 2V IMPRESSION: Scleroti c lunate, not significantly changed. [employer] Other XR wrist RT 2V Impression dictated by: Brody Marks Jr., M.D.01/24/2022 3:00 PM [employer] Other XR wrist RT 2V Dictation Location: [place] [address] [employer] Other XR wrist RT 2V Transcribed By: GRACIE 01/24/22 1500 [employer] Other XR wrist RT 2V Dictated By: Brody Marks Jr, MD 01/24/22 1454 [employer] Other XR wrist RT 2V Signed By: [employer] Other XR wrist RT 2V 01/24/22 1500 [employer] Other XR wrist RT min 3V*on 2021 XR wrist RT min 3V* [facility] [employer] Other XR wrist RT min 3V* [facility] [address] [place] [employer] Other XR wrist RT min 3V* [address] [place] [address] [employer] Other XR wrist RT min 3V* [place] [address] [employer] Other XR wrist RT min 3V* [facility] [employer] Other XR wrist RT min 3V* Signed [employer] Other XR wrist RT min 3V* Patient: Kourtney Novak MR#: [id number] [employer] Other XR wrist RT min 3V* [id number] [employer] Other XR wrist RT min 3V* : 1975 Acct:[id number] [employer] Other XR wrist RT min 3V* Age/Sex: 46 / F ADM Date: 11/20/21 [employer] Other XR wrist RT min 3V* Loc: [facility] Room: Type : [facility] [employer] Other XR wrist RT min 3V* Attending Dr: Naz Gomes MD [employer] Other XR wrist RT min 3V* Ordering Provider: Elyssa Gomes MD [employer] Other XR wrist RT min 3V* Date of Service: 11/20/21 [employer] Other XR wrist RT min 3V* XR/XR wrist RT min 3V*: Other specified postprocedural [employer] Other XR wrist RT min 3V* states;Osteochondros i s of [facility] [employer] Other XR wrist RT min 3V* Copies to: Elyssa Gomes MD [employer] Other XR wrist RT min 3V* 4 viewsRIGHT wrist plain film [employer] Other XR wrist RT min 3V* COMPARISON:None [employer] Other XR wrist RT min 3V* HISTORY: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 No collapse identified. Calculi metacarpal bones [employer] Other XR wrist RT min 3V* identified. No soft tissue abnormality seen. [employer] Other XR wrist RT min 3V* XR/XR wrist RT min 3V* [employer] Other XR wrist RT min 3V* IMPRESSION:Sclerotic changes of the lunate. Adequate bony alignment. No collapse. [employer] Other XR wrist RT min 3V* Impression dictated by: George Gray M.D.11/20/2021 3:59 PM [employer] Other XR wrist RT min 3V* Dictation Location: [place] [address] [employer] Other XR wrist RT min 3V* Transcribed By: PWS 11/20/21 [facility]9 [employer] Other XR wrist RT min 3V* Dictated By: George Gray DO 11/20/21 1557 [employer] Other XR wrist RT min 3V* Signed By: [employer] Other XR wrist RT min 3V* 11/20/21 1559 No rt [employer] Other XR wrist RT min 3V*on 2020 XR wrist RT min 3V* [facility] [employer] Other XR wrist RT min 3V* [facility] [employer] Other XR wrist RT min 3V* [address] [place] [address] [employer] Other XR wrist RT min 3V* [place] [address] [employer] Other XR wrist RT min 3V* XRay Report [place] [employer] Other XR wrist RT min 3V* Signed [employer] Other XR wrist RT min 3V* Patient: Kourtney Novak MR#: [id number] [employer] Other XR wrist RT min 3V* [id number] [employer] Other XR wrist RT min 3V* : 1975 Acct:[id number] [employer] Other XR wrist RT min 3V* Age/Sex: 45 / F ADM Date: 08/28/21 [employer] Other XR wrist RT min 3V* Loc: [facility] Room: Type : [facility] [employer] Other XR wrist RT min 3V* Attending Dr: Naz Gomes MD [employer] Other XR wrist RT min 3V* Ordering Provider: Elyssa Gomes MD [employer] Other XR wrist RT min 3V* Date of Service: 08/28/21 [employer] Other XR wrist RT min 3V* XR/XR wrist RT min 3V*: M92.211 [employer] Other XR wrist RT min 3V* Copies to: Elyssa Gomes MD [employer] Other XR wrist RT min 3V* RIGHT WRIST - 4 views [employer] Other XR wrist RT min 3V* CLINICAL DATA: Right wrist pain and decreased range of motion. No injury. [employer] Other XR wrist RT min 3V* COMPARISON: 11/15/2020 and MRI 11/15/2020 [employer] Other XR wrist RT min 3V* AP, lateral, oblique and ulnar deviation views were obtained. There is no acute fracture or [employer] Other XR wrist RT min 3V* dislocation. Minor sclerosis is again seen at the lunate where there is also subchondral cystic [employer] Other XR wrist RT min 3V* change medially. Thi s is similar to the prior. There is no developing joint space narrowing or [employer] Other XR wrist RT min 3V* hypertrophy. No prominent soft tissue swelling is noted. [employer] Other XR wrist RT min 3V* XR/XR wrist RT min 3V* [employer] Other XR wrist RT min 3V* IMPRESSION: [place] [employer] Other XR wrist RT min 3V* BONY CHANGES AT THE LUNATE, SIMILAR TO THE COMPARISON. [employer] Other XR wrist RT min 3V* NO ACUTE FINDINGS. [employer] Other XR wrist RT min 3V* Impression dictated by: Trixie Irizarry M.D.08/28/2021 4:42 PM [employer] Other XR wrist RT min 3V* Dictation Location: [facility]- [employer] Other XR wrist RT min 3V* Transcribed By: [facility] 08/28/21 1642 [employer] Other XR wrist RT min 3V* Dictated By: Trixie Irizarry MD 08/28/21 1639 [employer] Other XR wrist RT min 3V* Signed By: [employer] Other XR wrist RT min 3V* 08/28/21 1642 No rt [employer] Other XR FOOT 3V AP/LAT/OBL BILon 03-04-2021 [...] No other significant abnormality. 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: [facility] Transcribe Date/Time: Mar 04 2021 2:57P Dictated by : TOBI HERRMANN MD This examination was interpreted and the report reviewed and electronically signed by: TOBI HERRMANN MD on Mar 04 2021 2:59PM EST [id number] N [facility] Vital Signs Date Time Vital Sign Value Performing Clinician Facility 07-13-2024 17:34-0400 Body mass index (BMI) [Ratio] 40.77 kg/m2 Estevan Polanco JUNIOR ACCOUNTING CLERK Work Phone: [facility] 07-13-2024 17:34-0400 Body temperature 98.71 [degF] Estevan Polanco JUNIOR ACCOUNTING CLERK Work Phone: [facility] 07-13-2024 17:34-0400 Body weight 111.13 kg Estevan Polanco JUNIOR ACCOUNTING CLERK Work Phone: [facility] 07-13-2024 17:34-0400 Diastolic blood pressure 88 mm[Hg] Estevan Polanco JUNIOR ACCOUNTING CLERK Work Phone: [facility] 07-13-2024 17:34-0400 Heart rate 87 /min Estevan Polanco JUNIOR ACCOUNTING CLERK Work Phone: [facility] 07-13-2024 17:34-0400 SaO2% (BldA) [Mass fraction] 99 % Estevan Polanco JUNIOR ACCOUNTING CLERK Work Phone: [facility] 07-13-2024 17:34-0400 Systolic blood pressure 124 mm[Hg] Estevan Polanco JUNIOR ACCOUNTING CLERK Work Phone: [facility] 05-30-2024 09:38-0400 Body mass index (BMI) [Ratio] 40.61 kg/m2 Zeinab Wood MD Work Phone: [facility] 05-30-2024 09:38-0400 Body weight 109 kg Zeinab Wood MD Work Phone: [facility] 05-30-2024 09:38-0400 Diastolic blood pressure 72 mm[Hg] Zeinab Wood MD Work Phone: [facility] 05-30-2024 09:38-0400 Heart rate 87 /min Zeinab Wood MD Work Phone: [facility] 05-30-2024 09:38-0400 Respiratory rate 18 /min Zeinab Wood MD Work Phone: [facility] 05-30-2024 09:38-0400 Systolic blood pressure 109 mm[Hg] Zeinab Wood MD Work Phone: [facility] 06-30-2023 10:52-0400 Body height 164 cm Erik Pineda MD Work Phone: [facility] 06-30-2023 10:52-0400 Body temperature 98.71 [degF] Erik Pineda MD Work Phone: [facility] 06-30-2023 10:52-0400 Body weight 101.88 kg Erik Pineda MD Work Phone: [facility] 06-30-2023 10:52-0400 Diastolic blood pressure 58 mm[Hg] Erik Pineda MD Work Phone: [facility] 06-30-2023 10:52-0400 Heart rate 103 /min Erik Pineda MD Work Phone: [facility] 06-30-2023 10:52-0400 Respiratory rate 18 /min Erik Pineda MD Work Phone: [facility] 06-30-2023 10:52-0400 SaO2% (BldA) [Mass fraction] 97 % Erik Pineda MD Work Phone: [facility] 06-30-2023 10:52-0400 Systolic blood pressure 117 mm[Hg] Erik Pineda MD Work Phone: [facility] 05-06-2023 07:10-0400 Body height 165.1 cm MD Sammie Gonzalez Work Phone: [facility] 05-06-2023 07:10-0400 Body weight 102.05 kg MD Sammie Gonzalez Work Phone: [facility] 03-31-2023 09:30-0400 Body height 165.1 cm Russell Shields Other [employer] Other 03-31-2023 09:30-0400 Body mass index (BMI) [Ratio] 36.94 kg/m2 Russell Shields Other [employer] Other 03-31-2023 09:30-0400 Body weight 100.7 kg Russell Shields Other [employer] Other 03-31-2023 09:30-0400 Diastolic blood pressure 68 mm[Hg] Russell Shields Other [employer] Other 03-31-2023 09:30-0400 Systolic blood pressure 109 mm[Hg] Russell Shields Other [employer] Other 09-29-2022 15:28-0500 Body weight 114.08 kg Zeinab Wood MD Work Phone: [facility] 09-29-2022 15:28-0500 Diastolic blood pressure 56 mm[Hg] Zeinab Wood MD Work Phone: [facility] 09-29-2022 15:28-0500 Heart rate 99 /min Zeinab Wood MD Work Phone: [facility] 09-29-2022 15:28-0500 Systolic blood pressure 115 mm[Hg] Zeinab Wood MD Work Phone: [facility] 07-17-2022 15:45-0400 Body height 165.1 cm Beti Bowles Other [facility] Other 03-31-2022 14:00-0400 Body height 165.1 cm Beti Bowles Other [facility] Other 03-31-2022 14:00-0400 Body mass index (BMI) [Ratio] 39.6 kg/m2 Beti Bowles Other [facility] Other 03-31-2022 14:00-0400 Body weight 107.96 kg Beti [facility] Other [facility] Other 01-27-2022 14:15-0400 Body height 165.1 cm Beti [facility] Other [facility] Other 01-27-2022 14:15-0400 Body mass index (BMI) [Ratio] 39.93 kg/m2 Beti [facility] Other [facility] Other 01-27-2022 14:15-0400 Body weight 108.86 kg Beti [facility] Other [facility] Other 01-20-2022 11:03-0400 Body height 165.1 cm Zeinab Wood MD Work Phone: [facility] 01-20-2022 11:03-0400 Body weight 104.06 kg Zeinab Wood MD Work Phone: [facility] 01-20-2022 11:03-0400 Diastolic blood pressure 67 mm[Hg] Zeinab Wood MD Work Phone: [facility] 01-20-2022 11:03-0400 Heart rate 108 /min Zeinab Wood MD Work Phone: [facility] 01-20-2022 11:03-0400 Systolic blood pressure 113 mm[Hg] Zeinab Wood MD Work Phone: [facility] 11-20-2021 16:15-0500 Body height 165.1 cm Elyssa Gomes Other [facility] Other 11-20-2021 16:15-0500 Body mass index (BMI) [Ratio] 39.93 kg/m2 Elyssa Gomes Other [facility] Other 11-20-2021 16:15-0500 Body weight 108.86 kg Elyssa Gomes Other [facility] Other 10-08-2021 15:15-0500 Body height 165.1 cm Elyssa Calvmary Other [facility] Other 10-08-2021 15:15-0500 Body mass index (BMI) [Ratio] 39.43 kg/m2 Elyssa Calvey Other [facility] Other 10-08-2021 15:15-0500 Body weight 107.5 kg Elyssa Calvmary Other [facility] Other 08-28-2021 16:15-0500 Body height 165.1 cm Elyssamaxine Gomes Other [facility] Other 08-28-2021 16:15-0500 Body mass index (BMI) [Ratio] 38.77 kg/m2 Elyssa Calvmary Other [facility] Other 08-28-2021 16:15-0500 Body weight 105.69 kg Elyssa Calvmary Other [employer] Other Encounters Encounter Date Encounter Type Care Provider Facility Start: 07-13-2024 End: 07-13-2024 ambulatory ESTEVAN POLANCO Not Available Start: 07-13-2024 End: 07-13-2024 Office outpatient visit 25 minutes Estevan Polanco JUNIOR ACCOUNTING CLERK Work Phone: [facility] Comment on above: Tooth infection (Ingrid cezar Dx) Start: 07-04-2024 End: 07-04-2024 ambulatory Ridge Hollingsworth MD Facility:[facility] Start: 06-22-2024 End: 06-22-2024 Patient encounter procedure MD Sammie Gonzalez Work Phone: [facility] Start: 06-22-2024 End: 06-22-2024 ambulatory MD Sammie Gonzalez Work Phone: [facility] Work Phone: Start: 06-21-2024 End: 06-21-2024 ambulatory MD Sammie Gonzalez Work Phone: [facility] Work Phone: Start: 06-21-2024 End: 06-21-2024 Patient encounter procedure MD Sammie Gonzalez Work Phone: [facility] Work Phone: Start: 06-20-2024 End: 06-20-2024 ambulatory Ridge Hollingsworth MD Facility:[facility] Start: 05-30-2024 End: 05-30-2024 ambulatory SAMMIE GONZALEZ Facility:[facility] Start: 05-30-2024 End: 05-30-2024 Patient encounter procedure Zeinab Wood MD Work Phone: Rheumatology Comment on above: Inflammatory arthrit is (Primary Dx); Fibromyalgia; Medication monitoring encounter Start: 05-25-2024 End: 05-26-2024 Refill Rachele Fenton APRN.CNP Work Phone: Neurology [facility] Comment on above: Refill Request Start: 05-12-2024 End: 05-12-2024 Patient encounter procedure MD Sammie Gonzalez Work Phone: [facility] Start: 05-12-2024 End: 05-12-2024 ambulatory MD Sammie Gonzalez Work Phone: [facility] Work Phone: Start: 05-09-2024 End: 05-09-2024 ambulatory Ridge Hollingsworth MD Facility:[facility] [place] Start: 04-25-2024 End: 04-25-2024 ambulatory Ridge Hollingsworth MD Facility:[facility] Start: 03-25-2024 Refill Zeinab Wood MD Work Phone: Rheumatology Comment on above: Refill Request Start: 03-21-2024 ambulatory Lashayammamacrina Mcknightda n GROUNDS MAINTENANCE SUPERVISOR.CLINICAL SPECIALIST Work Phone: Neurology [facility] Comment on above: Robaxin Start: 03-18-2024 ambulatory Mohrinku Mcknightda n GROUNDS MAINTENANCE SUPERVISOR.CLINICAL SPECIALIST Work Phone: Neurology [facility] Comment on above: Insurance Start: 03-08-2024 Telephone encounter Erik martinez MD Work Phone: [facility] [place] Comment on above: epidural steroid inj ection Start: 03-07-2024 End: 03-07-2024 ambulatory Ridge Hollingsworth MD Facility:[facility] Start: 03-04-2024 End: 03-04-2024 ambulatory MD Sammie Gonzalez Work Phone: [facility] Work Phone: Start: 03-04-2024 End: 03-04-2024 Patient encounter procedure MD Sammie Gonzalez Work Phone: [facility] Work Phone: Start: 02-15-2024 End: 02-15-2024 Patient encounter procedure MD Sammie Gonzalez Work Phone: [facility]Ultrasound [facility] [place] Work Phone: Start: 02-15-2024 End: 02-15-2024 ambulatory MD Sammie Gonzalez Work Phone: [facility] Work Phone: Start: 02-10-2024 Telephone encounter Rachele acevedo GROUNDS MAINTENANCE SUPERVISOR.CLINICAL SPECIALIST Work Phone: Neurology Comment on above: Insurance Authorizat ion; [place] / [employer]. Start: 02-09-2024 End: 02-09-2024 Patient encounter procedure MD Sammie Gonzalez Work Phone: [facility]-MRI [address] Work Phone: Start: 02-09-2024 End: 02-09-2024 ambulatory MD Sammie Gonzalez Work Phone: [facility] Work Phone: Start: 02-05-2024 End: 02-05-2024 ambulatory Rachele Fenton APRN.CLINICAL SPECIALIST Work Phone: Neurology [facility] Comment on above: Meningioma (HCC) (Pr imary Dx); Chronic daily headache Start: 02-05-2024 End: 02-05-2024 Telemedicine consultation with patient Rachele Fenton GROUNDS MAINTENANCE SUPERVISOR.CLINICAL SPECIALIST Work Phone: [facility] Start: 02-02-2024 End: 02-02-2024 ambulatory SAMMIE GONZALEZ [facility] Comment on above: Intracranial meningi sera (HCC) (Primary Dx) Start: 02-02-2024 End: 02-02-2024 Telemedicine consultation with patient Fellow Appointments Work Phone: [facility] [place] Start: 02-02-2024 Telephone encounter Mario Alberto Phillips RN 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 eninges (HCC) [D32.9] Start: 01-27-2024 Refill Zeinab Wood MD Work Phone: Rheumatology Comment on above: Refill Request Start: 01-26-2024 End: 01-26-2024 Patient encounter procedure MD Sammie Gonzalez Work Phone: [facility] Work Phone: Start: 01-19-2024 Telephone encounter Mario Alberto Phillips RN [facility] Comment on above: Schedule Surgery ([place] rgery Planning ) Start: 01-08-2024 Telephone encounter Zeianb kenyon MD Work Phone: Rheumatology Comment on above: Results Start: 01-08-2024 End: 01-08-2024 Patient encounter procedure MD Sammie Gonzalez Work Phone: [facility] Start: 01-08-2024 End: 01-08-2024 ambulatory MD Sammie Gonzalez Work Phone: [facility] Work Phone: Start: 01-05-2024 Telephone encounter Mario Alberto Phillips RN [facility] Comment on above: Schedule Surgery Start: 01-04-2024 Telephone encounter Zeinab kenyon MD Work Phone: Rheumatology Comment on above: Lab Orders/FAX Start: 12-20-2023 End: 12-20-2023 ambulatory WANDY PHILLIPS Not Available Start: 11-29-2023 Refill Zeinab Wood MD Work Phone: Rheumatology Comment on above: Refill Request Start: 11-25-2023 End: 11-25-2023 Patient encounter procedure MD Sammie Gonzalez Work Phone: [facility] Physician [facility] Work Phone: Start: 11-12-2023 Refill Zeinab Wood MD Work Phone: Rheumatology Comment on above: Refill Request Start: 11-11-2023 Telephone encounter Mario Alberto Phillips RN [facility] Comment on above: Care Coordination (f ollow up) Start: 11-11-2023 End: 11-11-2023 Patient encounter procedure MD Sammie Gonzalez Work Phone: [facility] Start: 11-11-2023 End: 11-11-2023 ambulatory Sammie Gonzalez Facility:[facility] Start: 11-10-2023 Refill Zeinab Wood MD Work Phone: Rheumatology Comment on above: Refill Request Start: 11-09-2023 Refill Zeinab Wood MD Work Phone: Rheumatology Comment on above: Refill Request Start: 09-28-2023 End: 09-28-2023 ambulatory ZEINAB WOOD Facility:[facility] Start: 07-05-2023 Admission to [facility] Erik Pineda MD Work Phone: [facility] Comment on above: Surgery Start: 07-05-2023 ambulatory Erik castañeda MD Work Phone: [facility] Start: 07-02-2023 Telephone encounter Erik martinez MD Work Phone: [facility] Comment on above: Patient Update (Disc uss Surgery March 2024) Start: 06-30-2023 End: 06-30-2023 ambulatory MONTSE CORAL Facility:[facility] Start: 06-30-2023 End: 06-30-2023 Patient encounter procedure Erik Pineda MD Work Phone: [facility] Comment on above: Intracranial meningi sera (HCC) (Primary Dx) Start: 06-26-2023 End: 06-26-2023 ambulatory MONTSE LOU Facility:[facility] Start: 06-26-2023 End: 06-26-2023 Office outpatient new 45 minutes Fahad Luong MD Work Phone: Neurology Headache [facility] Comment on above: Medication overuse h eadache (Primary Dx); Brain mass; Meningioma (HCC); Chronic daily headache Start: 06-01-2023 End: 06-01-2023 ambulatory MONTSE LOU Facility:[facility] Start: 05-22-2023 End: 05-22-2023 ambulatory MD Sammie Gonzalez Work Phone: [facility] Work Phone: Start: 05-22-2023 End: 05-22-2023 Patient encounter procedure MD Sammie Gonzalez Work Phone: [facility] Start: 05-13-2023 Telephone encounter Moirashauna Chakrabortytonya thayer GROUNDS MAINTENANCE SUPERVISOR.CLINICAL SPECIALIST Work Phone: [facility] [place] Comment on above: TRIAGE Start: 05-06-2023 End: 05-06-2023 ambulatory MD Sammie Gonzalez Work Phone: [facility] Work Phone: Start: 05-06-2023 End: 05-06-2023 Patient encounter procedure MD Sammie Gonzalez Work Phone: [facility]MRI [facility] [place] Work Phone: Start: 04-29-2023 End: 04-29-2023 ambulatory MD Sammie Gonzalez Work Phone: [facility] Work Phone: Start: 04-29-2023 End: 04-29-2023 Patient encounter procedure MD Sammie Gonzalez Work Phone: [facility] Work Phone: Start: 04-15-2023 End: 04-15-2023 ambulatory MD Sammie Gonzalez Work Phone: [facility] Work Phone: Start: 04-15-2023 End: 04-15-2023 Patient encounter procedure MD Sammie Gonzalez Work Phone: [facility] Start: 04-13-2023 Refill Zeinab Wood MD Work Phone: Rheumatology Comment on above: Refill Request Start: 04-13-2023 Refill Zeinab Wood MD Work Phone: Rheumatology Comment on above: Refill Request Start: 04-06-2023 End: 04-06-2023 Patient encounter procedure MD Sammie Gonzalez Work Phone: [facility]-Nuc Med [facility] Work Phone: Start: 03-31-2023 End: 03-31-2023 ambulatory Russell Shields Other [employer] Other Start: 03-31-2023 Patient encounter procedure Russell Shields [facility] Start: 03-07-2023 Refill Zeinab Wood MD Work Phone: Rheumatology Comment on above: Refill Request Start: 01-18-2023 Refill Zeinab Wood MD Work Phone: Rheumatology Comment on above: Refill Request Start: 12-17-2022 End: 12-17-2022 ambulatory Elyssa Gomes Other [facility] Other Start: 12-17-2022 Office outpatient visit 15 minutes Elyssa Gomes [facility] Start: 12-11-2022 ambulatory Zeinab Wood [...] encounter procedure MD Sammie Gonzalez Work Phone: [facility] Start: 09-24-2022 End: 09-24-2022 ambulatory MD Sammie Gonzalez Work Phone: [facility] Work Phone: Start: 09-24-2022 Office outpatient visit 15 minutes Elsysa Mireya [facility] Start: 08-05-2022 Office outpatient visit 15 minutes Elyssa Mireya [facility] Start: 08-05-2022 End: 08-05-2022 ambulatory MD Sammie Gonzalez Work Phone: [facility] Work Phone: Start: 08-05-2022 End: 08-05-2022 Patient encounter procedure MD Sammie Gonzalez Work Phone: [facility] Start: 07-29-2022 End: 07-29-2022 ambulatory MD Sammie Gonzalez Work Phone: [facility] Work Phone: Start: 07-29-2022 End: 07-29-2022 Patient encounter procedure MD [facility] Start: 07-17-2022 End: 07-17-2022 ambulatory Beti Bowles Other [employer] Other Start: 07-17-2022 Office outpatient visit 15 minutes Beti Bowles [facility] Start: 06-25-2022 End: 06-25-2022 ambulatory Beti Bowles Other [employer] Other Start: 06-25-2022 Office outpatient visit 15 minutes Beti Bowles [facility] Start: 05-10-[address] SAMMIE GONZALEZ Facility : Start: 05-06-2022 End: 05-06-2022 Patient encounter procedure MD Samime Gonzalez Work Phone: [facility] Start: 05-01-2022 End: 05-01-2022 Patient encounter procedure MD Sammie Gonzalez [facility] Start: 03-31-2022 End: 03-31-2022 ambulatory Beti Bowles Other [employer] Other Start: 03-31-2022 Office outpatient visit 15 minutes Beti Bowles [facility] Start: 03-21-2022 End: 03-21-2022 Discharged Recurring MD Sammie Gonzalez Work Phone: [facility]-Physical Therapy [place] Start: 01-27-2022 End: 01-27-2022 ambulatory Beti Bowles Other [employer] Other Start: 01-27-2022 Office outpatient visit 15 minutes Beti Bowles [facility] Start: 01-24-2022 End: 01-24-2022 ambulatory Elyssamaxine Gomes Other [employer] Other Start: 01-24-2022 Office outpatient visit 15 minutes Elyssa Calvey [facility] Start: 01-20-2022 End: 01-20-2022 ambulatory Beti Bowles Other [employer] Other Start: 01-20-2022 Office outpatient visit 15 minutes Beti Bowles [facility] Start: 01-20-2022 End: 01-20-2022 Patient encounter procedure Zeinab Wood MD Work Phone: Rheumatology Comment on above: Inflammatory arthrit is (Primary Dx); Myalgia Start: 12-24-2021 End: 12-24-2021 ambulatory Elyssa Calvey Other [facility] Other Start: 12-24-2021 Postop follow up visit related to original px Elyssa Calvey [facility] Start: 12-19-2021 End: 12-19-2021 ambulatory Beti Bowles Other [facility] Other Start: 12-19-2021 Telephone encounter Beti Hooksney [facility] Start: 12-02-2021 End: 12-02-2021 ambulatory Beti Bowles Other [facility] Other Start: 12-02-2021 Office outpatient visit 15 minutes Beti Bowles [facility] Start: 11-20-2021 End: 11-20-2021 ambulatory Elyssa Calvey Other [facility] Other Start: 11-20-2021 Postop follow up visit related to original px Elyssa Calvey [facility] Start: 10-08-2021 End: 10-08-2021 ambulatory Elyssa Calvey Other [facility] Other Start: 10-08-2021 Office outpatient visit 25 minutes Elyssa Calvey [facility] Start: 08-28-2021 End: 08-28-2021 ambulatory Elyssa Calvey Other [facility] Other Start: 08-28-2021 Office outpatient visit 25 minutes Elyssa Calvey [facility] Start: 08-12-2021 End: 08-12-2021 ambulatory Elyssa Calvey Other [employer] Other Start: 08-12-2021 Telephone encounter Elyssa Calvey [facility] Start: 06-18-2021 Office outpatient visit 15 minutes Elyssa Calvey [facility] Start: 06-05-2021 Office outpatient visit 15 minutes Beti [facility] Start: 05-11-2017 End: 05-12-2017 Ambulatory DEFAULT PHYSICIAN Facility:[facility] Procedures Date Procedure Procedure Detail Performing [...] 12/28/2024 9:20 AM EDT Office Visit Rheumatology [address] [place] [address] Zeinab Wood MD [address] [place], [place] [id number] 6 month follow up Rheumatology Comment on above: 6 month follow up Start: 05-30-2024 End: 05-30-2024 Patient encounter procedure 05/30/2024 9:40 AM EDT Office Visit Rheumatology [address] [place] [address] Zeinab Wood MD [address] [place] [address] Return in about 8 months (around 05/29/2024) for arthralgias, FM . Rheumatology Comment on above: Return in about 8 mo nths (around 05/29/2024) for arthralgias, FM . Start: 05-15-2024 Covid-19 Vaccine () Covid-19 Vaccine () [facility] Start: 05-15-2024 Influenza vaccination C [facility] Start: 04-04-2024 End: 04-04-2024 Admission to same day surgery center 04/04/2024 7:30 AM EDT - 04/04/2024 2:30 PM EDT Surgery Admitting [address] [place] [address] Erik Pineda MD [address] [place] [address] ORBITOCRANIAL TO ANT CRAN FOSSA W/ SUPRAORB [...] 7:30 AM EDT Hospital Encounter Admitting [address] [place] [address] Erik Pineda MD [address] [place] [address] Intracranial meningioma (HCC) [D32.0] Admitting Comment on above: Intracranial meningi sera (HCC) [D32.0] Start: 03-22-2024 End: 03-22-2024 Patient encounter procedure Pre Anesthesia Comment on above: Preop, ORBITOCRANIAL TO ANT CRAN FOSSA W/ SUPRAORB RIDGE OSTEOTOMY & ELEV FRONT&TEMP LOBE Preop lab and nasal swab Start: 03-04-2024 DIABETES SCREEN DIABETES SCREEN [facility] Start: 03-04-2024 Diabetes Screening Diabetes Screenin g [facility] Start: 02-05-2024 End: 02-05-2024 ambulatory 02/05/2024 7:00 AM EDT [facility] Neurology Headache [facility] [address] [place] [address] Rachele Fenton, MARILEE.CLINICAL SPECIALIST [address] [place] [address] f/u Neurology Headache [facility] Comment on above: f/u Start: 01-29-2024 End: 01-29-2024 Patient encounter procedure [facility] Comment on above: R Sphenoid Wing Meni ngioma Start: 01-21-2024 End: 01-21-2024 ambulatory 01/21/2024 2:30 PM EDT [facility] [address] [place] [address] Montse Lou DO, PhD [address] [place] [address] Check up for headaches [facility] [place] Comment on above: Check up for headach es Start: 09-14-2023 Behavioral Health Screening Behavioral Health Screening [facility] Start: 09-14-2023 Depression Assessment Depression Ass essment [facility] Start: 05-15-2023 Covid-19 Vaccine () Covid-19 Vaccine () [facility] Start: 05-15-2023 Influenza vaccination C [facility] Start: 2022 COLOGUARD (FIT-DNA) COLOGUARD (FIT-D NA) [facility] Start: 2022 Colonoscopy COLONOSCOPY [facility] Start: 2022 COLORECTAL CANCER SCREENING COLORECTAL CANCER SCREENING [facility] Start: [address] COLONOGRAPHY [facility] Start: 2022 FECAL OCCULT BLOOD FECAL OCCULT BLOO D [facility] Start: 2022 Lipid 1996 panel - Serum or Plasma Lipid Screening [facility] Start: 2022 Lipid panel Lipid Screening [facility] Start: 2022 LIPID SCREEN LIPID SCREEN [facility] Start: 2022 Screening for malign ant neoplasm of colon [facility] Start: 2022 SIGMOIDOSCOPY SIGMOIDOSCOPY [facility] Start: 09-14-2022 DEPRESSION ASSESSMENT DEPRESSION ASS ESSMENT [facility] Start: 05-06-2022 Plain X-ray of right wrist XR wrist RT min 3V* [facility] Start: 05-06-2022 End: 05-06-2022 Patient encounter procedure Departed [facility] [place] [facility] Start: 05-01-2022 End: 05-01-2022 Patient encounter procedure Departed [facility] [place] Start: 03-01-2022 Adult depression screening assessment DEPRESSION SCREENING [facility] Start: 07-04-2021 Urine microalbumin profile DTaP,Tdap,Td Vaccine (1 - Tdap) [facility] Start: 03-21-2021 COVID-19 VACCINE (3 - Booster for Pfizer series) COVID-19 VACCINE (3 - Booster for Pfizer series) [facility] Start: 03-21-2021 COVID-19 VACCINE (3 - Pfizer series) COVID-19 VACCINE (3 - Pfizer series) [facility] Start: 02-21-2021 COVID-19 VACCINE (3 - Pfizer risk 4-dose series) COVID-19 VACCINE (3 - Pfizer risk 4-dose series) [facility] Start: 02-21-2021 COVID-19 VACCINE (3 - Pfizer risk series) COVID-19 VACCINE (3 - Pfizer risk series) [facility] Start: 2017 Mammography [facility] Start: 2017 Screening for malign ant neoplasm of breast [facility] Start: 2007 HPV TESTING HPV TESTING [facility] Start: 2007 Screening for malign ant neoplasm of cervix [facility] Start: 1998 PAP TESTING PAP TESTING [facility] Start: 1998 Screening for malign ant neoplasm of cervix [facility] Start: 1996 Hepatitis B Vaccine (1 of 3 - 19+ 3-dose series) Hepatitis B Vaccine (1 of 3 - 19+ 3-dose series) [facility] Start: 1996 SHINGRIX VACCINE (1 of 2) SHINGRIX VACCINE (1 of 2) [facility] Start: 1996 Urine microalbumin profile [facility] Start: 1995 Anxiety Screening Anxiety Screening [facility] Start: 1995 Depression Screening Depression Scre ening [facility] Start: 1983 PNEUMOCOCCAL (1 - PCV) PNEUMOCOCCAL (1 - PCV) [facility] Start: 1977 HEPATITIS B (1 of 3 - 3-dose series) HEPATITIS B (1 of 3 - 3-dose series) [facility] Start: 1977 Hepatitis B Vaccine (1 of 3 - 3-dose series) Hepatitis B Vaccine (1 of 3 - 3-dose series) [facility] Start: 1977 Screening for malign ant neoplasm of colon [facility] Bacteria identified in Urine by Culture Urine Culture [facility] Insulin [Units/volum e] in Serum or Plasma [facility] MR Skull base WO and W contrast IV MRI SKULL BASE WO/W IVCON Radiology Routine Benign neoplasm of meninges (HCC) 01/29/2024 1:56 PM EDT [facility] Work Phone: [facility] Immunizations Immunization Date Immunization Notes Care Provider Fa clari 06-18-2022 Influenza, injectabl e, Madin Fatimah Canine Kidney, preservative free, quadrivalent Estevan Polanco JUNIOR ACCOUNTING CLERK Work Phone: [facility] 06-18-2022 influenza virus vaccine, unspecified formulation Fahad Luong MD Work Phone: [facility] 07-12-2021 influenza, injectabl e, quadrivalent, preservative free Estevan Polanco JUNIOR ACCOUNTING CLERK Work Phone: [facility] 07-03-2021 tetanus and diphther ia toxoids, adsorbed, preservative free, for adult use (5 Lf of tetanus toxoid and 2 Lf of diphtheria toxoid) Estevan Polanco JUNIOR ACCOUNTING CLERK Work Phone: [facility] 05-15-2021 Kenalog -40 mg Beti Kear dwayne Other [facility] Other 04-10-2021 Kenalog -40 mg Beti Kear dwayne Other [facility] Other 01-24-2021 COVID-19 mRNA Comirmaurice (Pfizer) MD Sammie Gonzalez Work Phone: [facility] 01-02-2021 COVID-19 mRNA Comirnatpiedad (Pfizer) MD Sammie Gonzalez Work Phone: [facility] 11-15-2020 Kenalog -40 mg Beti Kear dwayne Other [facility] Other 07-04-2020 Influenza, injectabl e, Madin Mifflin Canine Kidney, preservative free, quadrivalent Estevan Polanco JUNIOR ACCOUNTING CLERK Work Phone: [facility] 03-08-2020 Gel-Syn Beti Kearne y Other [facility] Other 03-01-2020 Gel-Syn Beti Kearne y Other [facility] Other 02-16-2020 Gel-Syn Beti Kearne y Other [facility] Other 01-26-2020 Kenalog -40 mg Beti Kear dwayne Other [facility] Other 02-02-2019 hepatitis A vaccine, adult dosage Estevan Polanco JUNIOR ACCOUNTING CLERK Work Phone: [facility] 08-11-2017 Theraputic Injection Robert Bowles Other [place] [facility] Other 08-04-2017 Theraputic Injection Robert Bowles Other [facility] Other 07-07-2017 Kenalog -40 mg Beti Kear dwayne Other [facility] Other 06-23-2017 influenza virus vaccine, unspecified formulation Estevan Polanco JUNIOR ACCOUNTING CLERK Work Phone: [facility] 04-09-2017 Kenalog -40 mg Beti Kear dwayne Other [facility] Other 12-11-2016 Kenalog -40 mg Beti Kear dwayne Other [facility] Other 09-29-2014 influenza, injectabl e, quadrivalent, contains preservative Beti Jelena Other [facility] 08-30-2014 influenza, injectabl e, quadrivalent, preservative free Estevan Polanco JUNIOR ACCOUNTING CLERK Work Phone: [facility] Healthcare Payers Date Payer Category Payer Medicare (Managed Care) [employer] [id number] 2024 Medicare [id number] 2024 Unknown 2024 Medicaid [id number] 2024 Unknown [id number] 2023 Self-pay [id number] 2023 Medicaid [id number] 2009 Medicare MEDICARE MEDICAR E A AND B [id number] 2009-Present [phone] [address] [address] [place] [address] Medicare [id number] 2009 Medicare [id number] 1977 Unknown [id number] 2.840.1.559788.3.579.2. 593 1977 Unknown [id number] 2.840.1.912771.3.579.2. 593 1977 Unknown [id number] 2.840.1.800845.3.579.2. 196 1977 Unknown [id number] 2.16840.1.459060.3.579.2. 196 1977 Unknown [id number] 2.16840.1.100879.3.579.2. 196 1977 Unknown [id number] 2.16.840.1.221222.3.579.2. 196 1977 Unknown [id number] 2.16840.1.932637.3.579.2. 196 1977 Unknown [id number] 2.16.840.1.046392.3.579.2. 1259 1977 Unknown [id number] 2.16.840.1.384305.3.579.2. 1259 1977 Unknown [id number] 2.16.840.1.698488.3.579.2. 1259 1959 Medicare [id number] [id number] 1959 Unknown [id number] Unknown [id number] 2.16.840.1.983938.3.579.2. 531 Unknown [id number] 2.16.840.1.027572.3.579.2. 531 Unknown [id number] 2.16.840.1.358264.3.579.2. 531 Unknown [id number] 2.16.840.1.542661.3.579.2. 531 Unknown [id number] 2.16.840.1.796109.3.579.2. 531 Unknown [id number] 2.16.840.1.245269.3.579.2. 531 Social History Date Type Detail Facility Start: 03-04-2021 End: 03-25-2023 Tobacco smoking status NHIS Ex-smoker [facility] Start: 03-04-2021 End: 09-28-2023 Tobacco use and exposure Smokeless tobacco non-user [facility] Start: 1975 Sex Assigned At Female [facility] Start: 01-10-2022 End: 01-20-2022 Exposure to SARS-CoV-2 (event) Not sure [facility] Start: 09-22-2022 End: 02-01-2024 Sex Assigned At [facility] History of tobacco use Current smoker [facility] Start: 09-22-2022 End: 02-01-2024 History of Social function [facility] Adult Depression Screening Assessment 1 [facility] Start: 02-25-2021 Gender identity Identifies as female gender (finding) [facility] Start: 02-25-2021 Sexual orientation Heterosexual (fin ding) [facility] Start: 06-01-2023 End: 07-13-2024 Alcohol intake Current drinker of alcohol (finding) [facility] History of tobacco use Cigarette Smoker [facility] Start: 03-25-2023 Tobacco Comment >10 years sin e last smoked [facility] Start: 03-25-2023 Alcohol Comment caffeine: stackers N [facility] Start: 1975 Sex assigned at Not on file N [facility] Medical Equipment Procedure Code Equipment Code Equipment Origin al Text Equipment Identifier Dates Start: 03-10-2023 Clinical Notes 03-04-2021 to 07-13-2024 Estevan Polanco NP - 07/13/2024 5:30 PM Zeinab Rosen MD - 05/30/2024 9:52 AM EDTTelephone Encounter - Eun Stanford APRN.JOSSIE - 05/26/2024 10:59 AM Vanessa Jernigan MD - 02/02/2024 7:36 PM EDT Note Date & Type Note Facility 07-13-2024 History of Present illness Narrative Images from the original note were not included. HPI: Historian of HPI: patient Kourtney Novak is a 48 y.o. female who presents today to the Urgent Care with the following complaints and denials due to tooth problems which has been present for 4 day(s) pt states she thinks she has a tooth abscess, located at the top right of the mouth. C/O Denies Symptom Comments [x] [] Tooth pain Top right jaw [x] [] Gum swelling [x] [] Gum tenderness [] [x] discharge [x] [] Difficulty chewing [] [x] Difficulty drinking liquids [x] [] Dental visit in past 12 months Family health services Additional Comments: pt has not taken any OTC medications ROS: A complete system ROS was performed and negative aside from the pertinent positives noted in the HPI and PE. Examination General Examination: General Examination: in no acute distress, well developed, well nourished. Head: normocephalic, atraumatic Eyes: sclera non-icteric Ears: auditory canal clear, tympanic membrane intact, clear Nose: no lesions, nares patent Oral Cavity: right upper gum line over # 3, 4, 5, 6 teeth with redness and swelling Throat: clear Neck/Thyroid: no carotid bruit Lymph Nodes: no cervical adenopathy Skin: no rashes Heart: no murmurs, regular rate and rhythm, S1, S2 normal Lungs: clear to auscultation bilaterally Abdomen: No tenderness, no hepatosplenomegaly, no masses palpable Musculoskeletal: normal Extremities: no clubbing, cyanosis or edema Peripheral Pulses: normal Neurologic: nonfocal cranial nerves 2-12 grossly intact. Psych: alert, oriented, cognitive function intact, cooperative with exam 1. Tooth infection (Primary) Discussed diagnosis, use of augmentin and its most common side effects. Advised to continue etodolac as ordered as well as prn ibuprofen as needed. Follow up with dental as scheduled. - amoxicillin-clavulanate (Augmentin) 875-125 MG tablet; Take 1 tablet (875 mg) by mouth in the morning and 1 tablet (875 mg) before bedtime. Do all this for 10 days. Dispense: 20 tablet; Refill: 0 documented in this encounter [facility] 05-30-2024 Note HNO ID: [id number] Author: ZEINAB WOOD MD Service: ? Author [...] and remote event (more content not included)... [facility] 05-30-2024 History of Present illness Narrative [...] FM- agree with diagnosis Was on savella calvin feels it was not helping Tried lyrica [...] Swollen Glands: No documented in this encounter [facility] 05-26-2024 Telephone encounter Note The following approved medication requests have been transmitted electronically. Requested Prescriptions Signed Prescriptions Disp Refills methocarbamol (ROBAXIN) 500 mg tablet 45 tablet 2 Sig: Take 1 tablet by mouth two times a day as needed. Authorizing Provider: EUN STANFORD APRN.CNP [facility] 05-26-2024 Miscellaneous Notes The following approved medication requests have been transmitted electronically. Requested Prescriptions Signed Prescriptions Disp Refills methocarbamol (ROBAXIN) 500 mg tablet 45 tablet 2 Sig: Take 1 tablet by mouth two times a day as needed. Authorizing Provider: EUN STANFORD APRN.JOSSIE Physician: Eliceo Call from patient requesting refill. Please E-Scribe Last office visit 02/05/24 with Deal Pepperdamarie virtual Next office visit N/A Patient Comment: [...] a day as needed. Pharmacy Name: [facility] documented in this encounter [facility] 05-26-2024 Telephone encounter Note Physician: Eliceo Call from patient requesting refill. Please E-Scribe Last office visit 02/05/24 with Deal Pepperdamarie virtual Next office visit N/A Patient Comment: [...] day as needed. Pharmacy Name: [facility] 03-25-2024 Telephone encounter Note The following approved medication requests have been transmitted electronically. Requested Prescriptions Pending Prescriptions Disp Refills predniSONE (DELTASONE) 5 mg tablet [Pharmacy Med Name: prednisone 5 mg tablet] 60 tablet 3 Sig: TAKE 1 TO 2 TABLETS BY MOUTH EVERY DAY Zeinab Wood MD [facility] 03-25-2024 Miscellaneous Notes The following approved [...] 365 Days Visit Type Date Time Department [facility] 05/30/2024 9:40 AM [facility] Last Ophthalmology Check for Plaquenil (Hydroxychloroquine) [...] (HCC), Preop testing TYPE AND SCREEN,30 DAY [[id number]] 02/03/24 05/04/24 02/03/24 Auth. provider: Erik Pineda MD Assoc. diagnoses: Intracranial meningioma (HCC), Preop testing documented in this encounter [facility] 03-25-2024 Telephone encounter Note No standing [...] Days Visit Type Date Time Department [facility] 05/30/2024 9:40 AM [facility] Last Ophthalmology Check for Plaquenil (Hydroxychloroquine) [...] (HCC), Preop testing TYPE AND SCREEN,30 DAY [[id number]] 02/03/24 05/04/24 02/03/24 Auth. provider: Erik Pineda MD Assoc. diagnoses: Intracranial meningioma (HCC), Preop testing [facility] 03-23-2024 Telephone encounter Note Patient last seen 02/05/2024. [facility] 03-23-2024 Miscellaneous Notes Patient last seen 02/05/2024. documented in this encounter [facility] 03-08-2024 Telephone encounter Note ADDENDUM: March 08, 2024 2:39 PM Distance Health Visit on 02/02/2024 including the details for the patient's surgery was faxed to Moira DONOVAN ( [facility]) . Mario Alberto Phillips RN, Meter Tester [facility] 03-08-2024 Miscellaneous Notes ADDENDUM: March 08, 2024 2:39 PM Distance Health Visit on 02/02/2024 including the details for the patient's surgery was faxed to Moira DONOVAN ( [facility]) . Mario Alberto Shidiac RN, Meter Tester Spoke with nurse Pizarro. We discussed that the patient's epidural steroid injection on 03/14/2024 for her neck pain (C7/T1) is far out from her surgery for the craniotomy with Dr Erik Pineda (04/04/24). Mario Alberto Phillips RN, Meter Tester General Call Caller : Moira Ortiz nurse at [facility] Contact Reason for Call : Nurse would like to confirm that pt is allowed to receive steroid injection prior to surgery-80mg of kenalog Patient requesting return call ? Yes documented in this encounter [facility] 03-08-2024 Telephone encounter Note Spoke with nurse Pizarro. We discussed that the patient's epidural steroid injection on 03/14/2024 for her neck pain (C7/T1) is far out from her surgery for the craniotomy with Dr Erik Pineda (04/04/24). Mario Alberto Phillips RN, Meter Tester [facility] 03-08-2024 Telephone encounter Note General Call Caller : Moira harrison at [facility] Contact Reason for Call : Nurse would like to confirm that pt is allowed to receive steroid injection prior to surgery-80mg of kenalog Patient requesting return call ? Yes [facility] 02-10-2024 Telephone encounter Note Images from the original note were not included. Prior Authorization for Medications Requested by ([facility], [place], Patient Call, Fax) : [email or web address] Pharm[facility] Name: [facility] Phone # : [phone] Name of Medication : Robaxin Dose : 500 mg Tablet If renewal, auth date expiration: NA Prescribing Provider: Eliceo Last OV: 02/05/2024 with Hamdamarie Insurance Provider : Medicare / [employer]. Is insurance card scanned in, including Rx info? Medicare card scanned - no RX information Insurance Phone : [employer]eds [place]: NA E-PA? Yes [facility] 02-10-2024 Miscellaneous Notes Images from the original note were not included. Prior Authorization for Medications Requested by (Karthik, Pharmacy, Patient Call, Fax) : [email or web address] Name: [facility] Phone # : [phone] Name of Medication : Robaxin Dose : 500 mg Tablet If renewal, auth date expiration: NA Prescribing Provider: Eliceo Last OV: 02/05/2024 with Juan Luisdamarie Insurance Provider : Medicare / [employer]. Is insurance card scanned in, including Rx info? Medicare card scanned - no RX information Insurance Phone : [employer]eds [place]: NA E-PA? Yes documented in this encounter [facility] 02-05-2024 History of Present illness Narrative [...] visit. Either the patient or their legal insurance sales representative has been informed of the [...] these with the patient: yes Rachele Fenton APRN.CLINICAL SPECIALIST HEADACHE SCORES: 06/19/2023 02/01/2024 Headache Questions ID [...] soft tissue component identified in the orbit. Varnish Maker Helper: [facility] Transcribe Date/Time: Jan 31 2024 3:33P Dictated [...] and clear, coherent, and relevant. Short and intermediate memory, cognition and general fund of knowledge [...] 30 minutes Rachele Fenton APRN.CNP Headache Section [facility] February 05, 2024 documented in this encounter [facility] 02-05-2024 Note HNO ID: [id number] Author: RACHELE FENTON APRN.CNP Service: ? Author [...] visit. Either the patient or their legal insurance sales representative has been informed of the [...] Albert Status Asses (more content not included)... [facility] 02-02-2024 Note HNO ID: [id number] Author: VANESSA UGARTE MD Service: ? Author Type: Fellow Type: Progress Notes Filed: 02/02/2024 19:52 Note Text: SECTION OF SKULL BASE SURGERY MINIMALLY INVASIVE CRANIAL BASE AND PITUITARY SURGERY PROGRAM [facility] Ne[facility] [place] CC: Patient Care Team: Sammie Gonzalez MD [...] which included preparing to see the patient, [id number] patient care, completing clinical documentation, performing a [...] sphenoid wing without significant change since 05/06/2023. [facility] Transcribe Date/Time: Jan 31 2024 5:10P Dictated by : WESTLEY IYER MD This examination was interpreted and the report reviewed and electronically signed by: WESTLEY IYER MD on Jan 31 2024 5:28PM EST Results-Findings * * *Final Report* * * DATE OF EXAM: Jan 29 2024 1:56PM [facility] 0319 - MRI SKULL BASE WO/W IVCON / PROCEDURE REASON: Benign neoplasm of meninges (HCC) * * * * Physician Interpretation * * * * EXAMINATION: MRI SKULL BASE WO/W IVCON CLINICAL HISTORY: Sphenoid wing meningioma. TECHNIQUE: Sagittal T1, high-resolution coronal and axial T1, fat-suppressed axial fast T2 (more content not included)... [facility] 02-02-2024 History of Present illness Narrative Images from the original note were not included. SECTION OF SKULL BASE SURGERY MINIMALLY INVASIVE CRANIAL BASE & PITUITARY SURGERY PROGRAM [facility] & Head [facility] Ne[facility] [place] CC: Patient Care Team: Sammie Gonzalez MD [...] and surgery) were reviewed in detail. Ms Nvoak wishes to proceed with surgical resection as [...] which included preparing to see the patient, [id number] patient care, completing clinical documentation, performing a [...] sphenoid wing without significant change since 05/06/2023. Varnish Maker Helper: [facility] Transcribe Date/Time: Jan 31 2024 5:10P Dictated by : WESTLEY IYER MD This examination was interpreted and the report reviewed and electronically signed by: WESTLEY IYER MD on Jan 31 2024 5:28PM EST Results-Findings * * *Final Report* * * DATE OF EXAM: Jan 29 2024 1:56PM [facility] 0319 - MRI SKULL BASE WO/W IVCON [...] tissue mass extending into the of the technical illustrations map inker or parapharyngeal spaces. The soft tissue planes of the, retropharyngeal, and prevertebral spaces are maintained. The visualized parotid glands are normal in appearance. Nasopharynx/Oropharynx: The nasopharynx and oropharynx are normal in appearance. Result History documented in this encounter [facility] 02-02-2024 Telephone encounter Note Called the patient confirming virtual appointment today at [address] Vanessa Ugarte ( Skull base fellow from Dr Pineda team). [facility] 02-02-2024 Miscellaneous Notes Called the patient confirming virtual appointment today at [address] Vanessa Ugarte ( Skull base fellow from Dr Pineda team). documented in this encounter [facility] 02-01-2024 Telephone encounter Note Pharmacy requesting refill via Mychart. Last OV: 06/26/2023 Future OV: 02/05/2024 with Rachele Fenton APRN.CLINICAL SPECIALIST Last prescribed: 06/26/2023 Requested Prescriptions Pending Prescriptions Disp Refills tiZANidine (ZANAFLEX) 4 mg tablet [Pharmacy Med Name: tizanidine 4 mg tablet] 60 tablet 3 Sig: take 1 tablet by mouth every 8 hours as needed [facility] 02-01-2024 Miscellaneous Notes Pharmacy requesting refill via Mychart. Last OV: 06/26/2023 Future OV: 02/05/2024 with Rachele Fenton APRN.CLINICAL SPECIALIST Last prescribed: 06/26/2023 Requested Prescriptions Pending Prescriptions Disp Refills tiZANidine (ZANAFLEX) 4 mg tablet [Pharmacy Med Name: tizanidine 4 mg tablet] 60 tablet 3 Sig: take 1 tablet by mouth every 8 hours as needed documented in this encounter [facility] 01-29-2024 Note HNO ID: [id number] Author: LAKE, KOFI, CT Service: Radiology Author Type: Technologist Type: [...] PATIENT PRESENTS WITH AN IMPLANTABLE OR ATTACHED TRANSITIONAL LIVING SPECIALIST: No RADIOLOGY DEPARTMENT: CT; Exam(s) Completed: Brain STERO PERIPHERAL IV DATA: Not applicable SIGNED BY: KAYLEEN Sharma January 29, 2024 12:53 PM [facility] 01-29-2024 Note HNO ID: [id number] Author: AILYN NEUMANN RT(R) Service: ? Author [...] PATIENT PRESENTS WITH AN IMPLANTABLE OR ATTACHED TRANSITIONAL LIVING SPECIALIST: No ALLERGIES: Reviewed and unchanged CONTRAST ALLERGY: NO. EXAM: MRI - CONTRAST TYPE: GROUP II PERIPHERAL IV DATA: Ambulatory: A peripheral IV was started in the Left antecubital site with a Angio cath: 22 gauge. RADIOLOGY DEPARTMENT: MR; Exam(s) Completed: Head: Routine Brain SIGNATURE: Ailyn Neumann RDMS, RVT- Sheila ([facility]) PATIENT NAME: Kourtney Novak DATE: January 29, 2024 TIME: 1:06 PM [facility] 01-29-2024 History of Present illness [...] PATIENT PRESENTS WITH AN IMPLANTABLE OR ATTACHED TRANSITIONAL LIVING SPECIALIST: No RADIOLOGY DEPARTMENT: CT; Exam(s) Completed: Brain STERO PERIPHERAL IV DATA: Not applicable SIGNED BY: KAYLEEN Sharma January 29, 2024 12:53 PM documented in this encounter [facility] 01-29-2024 History of Present illness Narrative [...] PATIENT PRESENTS WITH AN IMPLANTABLE OR ATTACHED TRANSITIONAL LIVING SPECIALIST: No ALLERGIES: Reviewed and unchanged CONTRAST ALLERGY: NO. EXAM: MRI - CONTRAST TYPE: GROUP II PERIPHERAL IV DATA: Ambulatory: A peripheral IV was started in the Left antecubital site with a Angio cath: 22 gauge. RADIOLOGY DEPARTMENT: MR; Exam(s) Completed: Head: Routine Brain SIGNATURE: Ailyn Neumann RDMS, JODIT- Eda ([facility]) PATIENT NAME: Kourtney Novak DATE: January 29, 2024 TIME: 1:06 PM documented in this encounter [facility] 01-27-2024 Telephone encounter Note The following approved medication requests have been transmitted electronically. Requested Prescriptions Pending Prescriptions Disp Refills etodolac (LODINE) 400 mg tablet 60 tablet 3 Sig: One tab po bid prn Zeinab Wood MD [facility] 01-27-2024 Miscellaneous Notes The following approved [...] 365 Days Visit Type Date Time Department [facility] 05/30/2024 9:40 AM [facility] Last Ophthalmology Check for Plaquenil (Hydroxychloroquine) [...] Lab Orders None documented in this encounter [facility] 01-27-2024 Telephone encounter Note Most recent Rheumatology visit: 09/28/2023 (with Zeinab Wood) Rheumatology Care Team: None on file Recent Office Visits - This Specialty 09/28/2023 Inflammatory arthritis Rheumatology Zeinab Wood MD 09/29/2022 Inflammatory arthritis Rheumatology Zeinab Wood MD 01/20/2022 Inflammatory arthritis Rheumatology Zeinab Wood MD Upcoming Rheumatology Appointments - Next 365 Days Visit Type Date Time Department [facility] 05/30/2024 9:40 AM [facility] Last Ophthalmology Check for Plaquenil (Hydroxychloroquine) [...] Open Future (Single Instance) Lab Orders None [facility] 01-19-2024 Telephone encounter Note Spoke with [...] discussion and consent. Both appointments were confirmed. [facility] 01-19-2024 Miscellaneous Notes Spoke with Kourtney [...] the patient's home. Mario Alberto Phillips RN, Meter Tester documented in this encounter [facility] 01-19-2024 Telephone encounter Note Spoke with Ms Kourtney Novak today confirming surgery on 04/11/[address] Erik Pineda. Right middle sphenoid wing Preoperative appointments will be scheduled ~ 2 weeks prior to surgery date at a [facility] facility closer to the patient's home. Mario Alberto Phillips RN, Meter Tester [facility] 01-08-2024 Telephone encounter Note Lab results received from [facility]. Placed in dr Vinay griggs for review, copy sent to scanning. [facility] 01-08-2024 Miscellaneous Notes Lab results received from [facility]. Placed in dr Vinay griggs for review, copy sent to scanning. documented in this encounter [facility] 01-05-2024 Telephone encounter Note Spoke with Ms. Kourtney Novak today confirming surgery on Thu03/28/[address] Erik Pineda. Preoperative appointments to be scheduled at a [facility] facility near the patient's home. [facility] 01-05-2024 Miscellaneous Notes Spoke with Ms. Kourtney Novak today confirming surgery on 03/28/[address] Erik Pineda. Preoperative appointments to be scheduled at a [facility] facility near the patient's home. documented in this encounter [facility] 01-04-2024 Telephone encounter Note Orders faxed. Confirmation received. [facility] 01-04-2024 Miscellaneous Notes Orders faxed. Confirmation received. Printed labs. Sent [facility] msg to pt to clarify which [facility] to fax to. Labs/Fax sheet in [employer] folder. Please fax once clarification is received. Labs are ordered, please print and fax per patient request. Zeinab Wood MD Patient calling Needs 01/01/24 Lab Orders in Epic please (pended) Also requesting to FAX 01/01/24 Lab Orders to [facility] She will send their FAX # in My Chart documented in this encounter [facility] 01-04-2024 Telephone encounter Note Printed labs. Sent MC msg to pt to clarify [facility]. Labs/Fax sheet in [employer] folder. Please fax once clarification is received. [facility] 01-04-2024 Telephone encounter Note Labs are ordered, please print and fax per patient request. Zeinab Wood MD [facility] 01-04-2024 Telephone encounter Note Patient calling Needs 01/01/24 Lab Orders in [employer] please (pended) Also requesting to FAX 01/01/24 Lab Orders to [facility] She will send their FAX # in My Chart [facility] 12-02-2023 Miscellaneous Notes Called and spoke to patient and she stated she has appointment for eye exam in 01/2024. Called patient and left vm message that eye exam needed and medication sent to pharmacy and if patient had any question please call [phone]. My Chart Message also sent. She needs [...] 365 Days Visit Type Date Time Department [facility] 05/30/2024 9:40 AM [facility] Last Ophthalmology Check for Plaquenil (Hydroxychloroquine) [...] Lab Orders None documented in this encounter [facility] 11-12-2023 Miscellaneous Notes The following approved [...] 365 Days Visit Type Date Time Department [facility] 05/30/2024 9:40 AM [facility] Last Ophthalmology Check for Plaquenil (Hydroxychloroquine) [...] Lab Orders None documented in this encounter [facility] 11-11-2023 Miscellaneous Notes The following approved medication requests have been transmitted electronically. Requested Prescriptions Pending Prescriptions Disp Refills hydrOXYchloroQUINE (PLAQUENIL) 200 mg tablet 60 tablet 6 Sig: Take 1 tablet by mouth two times a day. Zeinab Wood MD Scan on 07/15/2022 1:08 PM by Provider, External, LYNDSAY: Consultation - Ophthalmology Most recent Rheumatology visit: 09/28/2023 (with Zeinab Wood) Rheumatology Care Team: None on file Recent Office Visits - This Specialty 09/28/2023 Inflammatory arthritis Rheumatology Zeinab Wood MD 09/29/2022 Inflammatory arthritis Rheumatology Zeinab Wood MD 01/20/2022 Inflammatory arthritis Rheumatology Zeinab Wood MD Upcoming Rheumatology Appointments - Next 365 Days Visit Type Date Time Department [facility] 05/30/2024 9:40 AM [facility] Last Ophthalmology Check for Plaquenil (Hydroxychloroquine) [...] Lab Orders None documented in this encounter [facility] 11-11-2023 Miscellaneous Notes Spoke with Ms.Mandie Alex Novak today following up on the [employer] message from 10/08/2023. She sent a message about having symptoms of blurry vision and was advised to schedule an appointment with ophthalmology. Today the patient stated that the blurry vision was 1 incident and that she did not have any vision changes since. She was made aware to send an update or call for any questions or concerns. Mario Alberto Phillips RN, Meter Tester documented in this encounter [facility] 11-10-2023 Miscellaneous Notes Most recent Rheumatology visit: 09/28/2023 (with Zeinab Wood) Rheumatology Care Team: None on file Recent Office Visits - This Specialty 09/28/2023 Inflammatory arthritis Rheumatology Zeinab Wood MD 09/29/2022 Inflammatory arthritis Rheumatology Zeinab Wood MD 01/20/2022 Inflammatory arthritis Rheumatology Zeinab Wood MD Upcoming Rheumatology Appointments - Next 365 Days Visit Type Date Time Department [facility] 05/30/2024 9:40 AM [facility] Last Ophthalmology Check for Plaquenil (Hydroxychloroquine) [...] Lab Orders None documented in this encounter [facility] 09-28-2023 Note HNO ID: [id number] Author: ZEINAB WOOD MD Service: ? Author [...] decreased muscle mass. (more content not included)... [facility] 07-06-2023 Miscellaneous Notes Spoke with Ms. Kourtney Novak. We discussed that it is so far out to schedule surgery in March 2024. We discussed option of possible surgery dates. She will be contacted during late December- January 2024 to confirm the date of surgery and schedule the preoperative appointments. Mario Alberto Phillips RN, Meter Tester General Call Caller : Pt Contact Reason for Call : Pt would like to go forward w scheduling surgery. However, she would like surgery to be scheduled in March 2024, pt would like to discuss further Patient requesting return call ? Yes documented in this encounter [facility] 07-06-2023 Miscellaneous Notes Spoke with Estefany Kourtney Novak. We discussed that it is so far out to schedule surgery in March 2024. We discussed option of possible surgery dates. She will be contacted during late December- January 2024 to confirm the date of surgery and schedule the preoperative appointments. Mario Alberto Phillips RN, Meter Tester documented in this encounter [facility] 06-30-2023 Heather Banks APRN.CLINICAL SPECIALIST - 06/30/2023 11:30 AM EDT I believe [...] back Apr 2024). documented in this encounter [facility] 06-30-2023 Nurse Note Additional intake questions: Has the patient had fever, nausea, vomiting, diarrhea, constipation, fatigue for > 1 week? No Does the patient have a decreased appetite? No Does patient want to see a Meter Tester? No (yes to any of above refer patient to schedulers for dietitian appointment) ) Does patient have any new or increased numbness or tingling of extremities? No Is patient interested in fertility information? No Does patient need any prescription refills? No Does patient have an advanced directive in place? No, Patient referred to [facility] documented in this encounter [facility] 06-30-2023 Note HNO ID: [id number] Author: Erik Pineda MD Service: ? Author Type: Physician Type: Progress Notes Filed: 07/11/2023 2:03 PM Note Text: SECTION OF SKULL BASE SURGERY MINIMALLY INVASIVE CRANIAL BASE AND PITUITARY SURGERY PROGRAM [facility] AND [facility] [place] CC: Patient Care Team: Sammie Gonzalez MD as PCP - General (Family Medicine) Montse Lou DO - [facility] ASSESSMENT: In summary, Kourtney Novak is [...] and follow-up via virtual visit. Heather Moy APRN.CLINICAL SPECIALIST I have reviewed the progess note obtained [...] which included preparing to see the patient, [id number] patient care, completing clinical documentation, performing a [...] tablet by mout (more content not included)... [facility] 06-30-2023 History of Present illness Narrative Images from the original note were not included. SECTION OF SKULL BASE SURGERY MINIMALLY INVASIVE CRANIAL BASE & PITUITARY SURGERY PROGRAM [facility] & [facility] [place] CC: Patient Care Team: Sammie Gonzalez MD as PCP - General (Family Medicine) Montse Lou DO - [facility] ASSESSMENT: In summary, Kourtney Novak is [...] and follow-up via virtual visit. Heather Moy APRN.CLINICAL SPECIALIST I have reviewed the progess note obtained [...] which included preparing to see the patient, [id number] patient care, completing clinical documentation, performing a [...] the prior exam. documented in this encounter [facility] 06-26-2023 Instructions Fahad Luong MD - [...] 2023 5:39 PM documented in this encounter [facility] 06-26-2023 Note HNO ID: [id number] Author: Fahad Luong MD Service: ? Author Type: Physician Type: Progress Notes Filed: 06/26/2023 5:42 PM Note Text: [facility] NEW EVALUATION June 26, 2023 5:00 PM I have communicated my name and active licensure. The patient's identity and physical location were verified at the time of this visit. Either the patient or their legal insurance sales representative has been informed of the [...] turgor normal, no (more content not included)... [facility] 06-26-2023 History of Present illness Narrative [facility] NEW EVALUATION June 26, 2023 5:00 PM I have communicated my name and active licensure. The patient's identity and physical location were verified at the time of this visit. Either the patient or their legal insurance sales representative has been informed of the [...] 2023 5:36 PM documented in this encounter [facility] 06-01-2023 Note HNO ID: [id number] Author: Montse Lou DO, PhD Service: ? Author Type: Physician Type: Progress Notes Filed: 06/01/2023 9:24 AM Note Text: [facility] New Patient Consultation [place] [address] [place] [id number] Diagnosis: Multiple meningioma's with interval growth since 2015. Subjective History of Present Illness: Kourtney Novak is a 47 year old right handed female referred to [facility] by her PCP due to interval growth of known meningioma's since 2016. She started noticing imbalance a few months ago, leaning and veering to her right. She takes Depo shot per CEO NA. She has daily tension headaches x 10 [...] had ischemic stroke. 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 She lives in [place]. Interval History: 06/01/2023: Patient presents to establish care with [facility] and to discuss treatment options [...] has no known (more content not included)... [facility] 05-13-2023 Miscellaneous Notes Time Frame: Next available Provider: Carmine (possible GKRS) Referring: self Please instruct patient to hand carry/ upload images prior to appt Images also requested via Electronically Dx: Multiple meningiomas with interval growth Multiple meningiomas with interval growth since 2016. MRI done for [facility]iness. [facility] [place] [address] [place] [address] MRI Report Signed Patient: Kourtney Novak MR#: [id number] : 1975 Acct:[id number] Age/Sex: 47 / F ADM Date: 05/06/23 Loc: MR Room: Type: [facility] Attending Dr: Sammie Gonzalez MD Copies [...] subcortical white matter. documented in this encounter [facility] 04-13-2023 Miscellaneous Notes The following approved [...] 365 Days Visit Type Date Time Department [facility] 09/28/2023 3:00 PM [facility] Last Ophthalmology Check for Plaquenil (Hydroxychloroquine) [...] Lab Orders None documented in this encounter [facility] 04-13-2023 Miscellaneous Notes The following approved medication requests have been transmitted electronically. Requested Prescriptions Pending Prescriptions Disp Refills hydrOXYchloroQUINE (PLAQUENIL) 200 mg tablet [Pharmacy Med Name: hydroxychloroquine 200 mg tablet] 60 tablet 6 Sig: TAKE 1 TABLET BY MOUTH TWICE DAILY Zeinab Wood MD Scan on 07/15/2022 1:08 PM by Provider, External, PAMakcC: Consultation - Ophthalmology Most recent Rheumatology visit: 09/29/2022 (with Zeinab Wood) Recent Office Visits - This Specialty 09/29/2022 Inflammatory arthritis Rheumatology Zeinab Wood MD 01/20/2022 Inflammatory arthritis Rheumatology Zeinab Wood MD 07/04/2021 Pain in joint, multiple sites Rheumatology Zeinab Wood MD Upcoming Rheumatology Appointments - Next 365 Days Visit Type Date Time Department [facility] 09/28/2023 3:00 PM [facility] Last Ophthalmology Check for Plaquenil (Hydroxychloroquine) [...] Lab Orders None documented in this encounter [facility] 03-31-2023 Evaluation note Encounter Date Diagnosis [...] Obtain labs from Dr. Gonzalez regarding diabetes [facility] Other 06-26-2023 Miscellaneous Notes* Telephone Encounter - Tory Thomas LPN - 03/09/2023 11:55 AM EDT Refill to soon refilled 01/19/2023 30 capsules with 3 refilles [facility] Miscellaneous Notes* Telephone Encounter - Zeinab [...] 365 Days Visit Type Date Time Department [facility] 06/26/2023 10:40 AM [facility] Last Ophthalmology Check for Plaquenil (Hydroxychloroquine) [...] Instance) Lab Orders None [facility] Evaluation note* Encounter Date Diagnosis Assessment Notes Treatment Notes Treatment Clinical Notes Dec, Osteochondrosis of lunate of right wrist (ICD-10 - 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 May repeat ulnar wrist cortisone injection when needed. Patient instructed on the use of Voltaren Gel in the meantime Dec, Right wrist pain (ICD-10 - M25.531) Dec, Other specified postprocedural states (ICD-10 - Z98.890) [facility] Other 03-30-2023 Miscellaneous Notes* Addendum Note - [...] qd Zeinab Wood MD [facility] Miscellaneous Notes* Telephone Encounter - Zeinab Wood MD - 09/29/2022 4:00 PM EST The following approved medication requests have been transmitted electronically. Requested Prescriptions Signed Prescriptions Disp Refills hydrOXYchloroQUINE (PLAQUENIL) 200 mg tablet 60 tablet 6 Sig: Take 1 tablet by mouth twice daily. Authorizing Provider: ZEINAB WOOD MD * Telephone Encounter - Zoie Shepherdkhoi - 09/29/2022 3:49 PM EST Patient said she needed a refill for plaquenil when she was at check out. Thank you. [facility] History of Present illness Narrative* Zeinab [...] No Swollen Glands: No documented in [facility] Evaluation note* Encounter Date Diagnosis Assessment Notes Treatment Notes Treatment Clinical Notes Sep, Osteochondrosis of lunate of right wrist (ICD-10 - M92.211) Sep, Right wrist pain (ICD-10 - M25.531) Right ulnar wrist joint/TFCC injected with cortisone under sterile technique, patient tolerated well Sep, Other specified postprocedural states (ICD-10 - Z98.890) [facility] Other 11-22-2022 Evaluation note* Encounter Date Diagnosis Assessment Notes Treatment Notes Treatment Clinical Notes Jul, Osteochondrosis of lunate of right wrist (ICD-10 - 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 Decrease to 81 mg Aspirin once per day x 3 months then begin to wean off. Jul, Other specified postprocedural states (ICD-10 - Z98.890) [facility] Other 11-03-2022 Evaluation note* Encounter Date Diagnosis [...] pain of right shoulder (ICD-10 - M25.511) [facility] Other 10-12-2022 Evaluation note* Encounter Date Diagnosis [...] pain of left shoulder (ICD-10 - M25.512) [facility] Other 07-18-2022 Evaluation note* Encounter Date Diagnosis [...] pain of right shoulder (ICD-10 - M25.511) [facility] Other 05-16-2022 Evaluation note* Encounter Date Diagnosis Assessment Notes Treatment Notes Treatment Clinical Notes January, Arthritis of right acromioclavicular joint (ICD-10 - M19.011) January, Traumatic partial te ar of right biceps tendon, initial encounter (ICD-10 - S46.211A) January, Tear of right supraspinatus tendon (ICD-10 - M75.101) 16 May, 2022 Acute pain of right shoulder (ICD-10 - [...] will order an MRI for futher review. [facility] Other 05-13-2022 Evaluation note* Encounter Date Diagnosis Assessment Notes Treatment Notes Treatment Clinical Notes January, Osteochondrosis of lunate of right wrist (ICD-10 - M92.211) January, Right wrist pain (ICD-10 - M25.531) Right ulnar wrist injected with cortisone under sterile technique, patient tolerated well January, Other specified postprocedural states (ICD-10 - Z98.890) [facility] Other 05-09-2022 Evaluation note* Encounter Date Diagnosis [...] oral prednisone as prescribed by Neha ANDERSON. [facility] Other 05-09-2022 History of Present illness Narrative* [...] -none Zeinab Wood MD [facility] Evaluation note* Encounter Date Diagnosis Assessment [...] Other specified postprocedural states (ICD-10 - Z98.890) [facility] Other 03-21-2022 Evaluation note* Encounter Date Diagnosis [...] pain of right shoulder (ICD-10 - M25.511) [facility] Other 03-09-2022 Evaluation note* Encounter Date Diagnosis Assessment Notes Treatment Notes Treatment Clinical Notes Nov, Osteochondrosis of lunate of right wrist (ICD-10 - M92.211) Patient instructed on gentle ROM exercises. Continue Aspirin. Prescription given for edema glove Nov, Other specified postprocedural states (ICD-10 - Z98.890) [facility] Other 01-25-2022 Evaluation note* Encounter Date Diagnosis Assessment Notes Treatment Notes Treatment Clinical Notes Sep, Osteochondrosis of lunate of right wrist (ICD-10 - M92.211) Patient will proceed with surgery on the right wrist. Risks and benefits of procedure explained to patient; patient verbalizes understanding. [facility] Other 12-15-2021 Evaluation note* Encounter Date Diagnosis Assessment Notes Treatment Notes Treatment Clinical Notes Aug, Osteochondrosis of lunate of right wrist (ICD-10 - M92.211) Right wrist injected with cortisone under sterile technique, patient tolerated well. Patient would like to proceed with surgical treatment in October [facility] Other 11-29-2021 Evaluation note* Encounter Date Diagnosis Assessment Notes Treatment Notes Treatment Clinical Notes Jul, Carpal tunnel syndrome of right wrist (ICD-10 - G56.01) [facility] Other 10-05-2021 Evaluation note* Encounter Date Diagnosis [...] brace as needed for pain and support [facility] Other 09-22-2021 Evaluation note* Encounter Date Diagnosis [...] of right supraspinatus tendon (ICD-10 - M75.101) [facility] Other 06-21-2021 NoteHNO ID: [id number] Author: Hu Blankenship Service: Radiology Author Type: Back Up Machine Operator Type: Progress Notes Filed: 03/04/2021 1:11 PM [...] BY: Hu Blankenship March 04, 2021 1:10 [facility] Inflammatory arthritis- Primary Unspecified inflammatory polyarthropathy Myalgia Mylagia and myositis, unspecified [facility] noteNo InformationNocox south [employer] Other evaluecqds noteNo assessment information available [facility] Work Phone: evaluation note* Diagnosis Inflammatory arthritis- Primary Unspecified inflammatory polyarthropathy Myalgia Mylagia and myositis, unspecified Fibromyalgia Mylagia and myositis, unspecified [facility]* Diagnosis Medication overuse headache- Primary Drug induced headache, not elsewhere classified Brain mass Unspecified condition of brain Meningioma (HCC) Benign neoplasm of cerebral meninges Chronic daily headache Headache [facility]* Diagnosis Intracranial meningioma (HCC)- Primary Benign neoplasm of cerebral meninges [facility]* Diagnosis Onset Date Resolution Status Osteochondrosis of lunate of right wrist acute Right wrist pain acute [facility] Work Phone: evaluation note* Diagnosis 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) Benign neoplasm of cerebral meninges [facility]* Diagnosis Benign neoplasm of meninges (HCC) Benign neoplasm of cerebral meninges [facility]* Diagnosis Chronic daily headache Headache [facility] Diagnosis Intracranial meningioma (HCC)- Primary Benign neoplasm of cerebral meninges [facility] Diagnosis Meningioma (HCC)- Primary Benign neoplasm of cerebral meninges Chronic daily headache Headache Intracranial meningioma (HCC) Benign neoplasm of cerebral meninges Preop testing Preoperative examination, unspecified documented [facility] this encounter [facility]* Diagnosis Onset Date Resolution Status Osteochondrosis of lunate of right wrist acute Right wrist pain acute Acute pain of right shoulder acute Biceps tendonitis acute [facility] Work Phone: Evaluation note* Diagnosis Onset Date Resolution Status Acute pain of right shoulder acute Biceps tendonitis acute Osteochondrosis of lunate of right wrist acute Right wrist pain acute [facility] Work Phone: Evaluation note* Diagnosis Inflammatory arthritis- Primary Unspecified inflammatory polyarthropathy Fibromyalgia Mylagia and myositis, unspecified Medication monitoring encounter Encounter for therapeutic drug monitoring [facility]* Diagnosis Tooth infection- Primary Acute apical periodontitis of pulpal origin [facility] N[facility] - Reported* Type Description Date Medical History GERD Medical History gastroparesis Medical History bipolar Medical History DM II Surgical History carpal tunnel Surgical History cystectomy-left breast Surgical History right neuroplasty, ulnar nerve at elbow 08/2020 Hospitalization History see above Hospitalization History COPD [facility] Other [facility] general Narrative - Reported* Type Description Date Medical History GERD Medical History gastroparesis Medical History bipolar Medical History DM II Medical History COPD Surgical History carpal tunnel Surgical History cystectomy-left breast Surgical History right neuroplasty, ulnar nerve at elbow 08/2020 Surgical History appendectomy 09/2021 Hospitalization History see above Hospitalization History [facility] Other [facility] general Narrative - Reported* Type Description Date Medical History GERD Medical History gastroparesis Medical History bipolar Medical History DM II Medical History COPD Surgical History carpal tunnel Surgical History cystectomy-left breast Surgical History right neuroplasty, ulnar nerve at elbow 08/2020 Surgical History appendectomy 09/2021 Surgical History right wrist PIN/core decompress ion Hospitalization History see above Hospitalization History [facility] Other [facility] general Narrative - Reported* Type Description Date Medical History GERD Medical History gastroparesis Medical History bipolar Medical History DM II Medical History COPD Surgical History carpal tunnel Surgical History cystectomy-left breast Surgical History right neuroplasty, ulnar nerve at elbow 08/2020 Surgical History appendectomy 09/2021 Surgical History right wrist PIN/core decompress ion Surgical History cubital tunnel Hospitalization History see above Hospitalization History [facility] Other Summary Purpose Family History No Family [...] section and content) DATE CREATED AUTHOR 03/10/2018 [facility] DATE CREATED AUTHOR AUTHOR'S ORGANIZ ATION 03/05/2021 [facility] DATE CREATED AUTHOR AUTHOR'S ORGANIZ ATION 10/13/2022 [facility] DATE CREATED AUTHOR AUTHOR'S ORGANIZ ATION 02/01/2024 [facility] DATE CREATED AUTHOR AUTHOR'S ORGANIZ ATION 05/31/2024 [facility] DATE CREATED AUTHOR AUTHOR'S ORGANIZ ATION 07/03/2024 [facility] DATE CREATED AUTHOR AUTHOR'S ORGANIZ ATION 07/13/2024 [facility] DATE CREATED AUTHOR AUTHOR'S ORGANIZ ATION 07/15/2024 [facility] EP[employer] Source Comments (unrecognize d section and content) [...] or prosecute any alcohol or drug abuse patient.[facility] HospitalIn the event this information is protected by the Federal Confidentiality of Alcohol and Drug Abuse Patient Records regulations: The Federal rules restrict any use of the information to criminally investigate or prosecute any alcohol or drug abuse patient.[facility] the event this information is protected by the Federal Confidentiality of Alcohol and Drug Abuse Patient Records regulations: The Federal rules restrict any use of the information to criminally investigate or prosecute any alcohol or drug abuse patient.[facility]In the event this information is protected by the Federal Confidentiality of Alcohol and Drug Abuse Patient Records regulations: The Federal rules restrict any use of the information to criminally investigate or prosecute any alcohol or drug abuse patient.[facility]In the event this information is protected by the Federal Confidentiality of Alcohol and Drug Abuse Patient Records regulations: The Federal rules restrict any use of the information to criminally investigate or prosecute any alcohol or drug abuse patient.[facility]In the event this information is protected by the Federal Confidentiality of Alcohol and Drug Abuse Patient Records regulations: The Federal rules restrict any use of the information to criminally investigate or prosecute any alcohol or drug abuse patient.[facility]In the event this information is protected by the Federal Confidentiality of Alcohol and Drug Abuse Patient Records regulations: The Federal rules restrict any use of the information to criminally investigate or prosecute any alcohol or drug abuse patient.[facility]In the event this information is protected by the Federal Confidentiality of Alcohol and Drug Abuse Patient Records regulations: The Federal rules restrict any use of the information to criminally investigate or prosecute any alcohol or drug abuse patient.[facility]In the event this information is protected by the Federal Confidentiality of Alcohol and Drug Abuse Patient Records regulations: The Federal rules restrict any use of the information to criminally investigate or prosecute any alcohol or drug abuse patient.[facility]In the event this information is protected by the Federal Confidentiality of Alcohol and Drug Abuse Patient Records regulations: The Federal rules restrict any use of the information to criminally investigate or prosecute any alcohol or drug abuse patient.[facility]In the event this information is protected by the Federal Confidentiality of Alcohol and Drug Abuse Patient Records regulations: The Federal rules restrict any use of the information to criminally investigate or prosecute any alcohol or drug abuse patient.[facility]In the event this information is protected by the Federal Confidentiality of Alcohol and Drug Abuse Patient Records regulations: The Federal rules restrict any use of the information to criminally investigate or prosecute any alcohol or drug abuse patient.[facility]In the event this information is protected by the Federal Confidentiality of Alcohol and Drug Abuse Patient Records regulations: The Federal rules restrict any use of the information to criminally investigate or prosecute any alcohol or drug abuse patient.[facility]In the event this information is protected by the Federal Confidentiality of Alcohol and Drug Abuse Patient Records regulations: The Federal rules restrict any use of the information to criminally investigate or prosecute any alcohol or drug abuse patient.[facility]In the event this information is protected by the Federal Confidentiality of Alcohol and Drug Abuse Patient Records regulations: The Federal rules restrict any use of the information to criminally investigate or prosecute any alcohol or drug abuse patient.[facility]In the event this information is protected by the Federal Confidentiality of Alcohol and Drug Abuse Patient Records regulations: The Federal rules restrict any use of the information to criminally investigate or prosecute any alcohol or drug abuse patient.[facility]In the event this information is protected by the Federal Confidentiality of Alcohol and Drug Abuse Patient Records regulations: The Federal rules restrict any use of the information to criminally investigate or prosecute any alcohol or drug abuse patient.[facility]In the event this information is protected by the Federal Confidentiality of Alcohol and Drug Abuse Patient Records regulations: The Federal rules restrict any use of the information to criminally investigate or prosecute any alcohol or drug abuse patient.[facility]In the event this information is protected by the Federal Confidentiality of Alcohol and Drug Abuse Patient Records regulations: The Federal rules restrict any use of the information to criminally investigate or prosecute any alcohol or drug abuse patient.[facility]In the event this information is protected by the Federal Confidentiality of Alcohol and Drug Abuse Patient Records regulations: The Federal rules restrict any use of the information to criminally investigate or prosecute any alcohol or drug abuse patient.[facility]In the event this information is protected by the Federal Confidentiality of Alcohol and Drug Abuse Patient Records regulations: The Federal rules restrict any use of the information to criminally investigate or prosecute any alcohol or drug abuse patient.[facility]In the event this information is protected by the Federal Confidentiality of Alcohol and Drug Abuse Patient Records regulations: The Federal rules restrict any use of the information to criminally investigate or prosecute any alcohol or drug abuse patient.[facility]In the event this information is protected by the Federal Confidentiality of Alcohol and Drug Abuse Patient Records regulations: The Federal rules restrict any use of the information to criminally investigate or prosecute any alcohol or drug abuse patient.[facility]In the event this information is protected by the Federal Confidentiality of Alcohol and Drug Abuse Patient Records regulations: The Federal rules restrict any use of the information to criminally investigate or prosecute any alcohol or drug abuse patient.[facility]In the event this information is protected by the Federal Confidentiality of Alcohol and Drug Abuse Patient Records regulations: The Federal rules restrict any use of the information to criminally investigate or prosecute any alcohol or drug abuse patient.[facility]In the event this information is protected by the Federal Confidentiality of Alcohol and Drug Abuse Patient Records regulations: The Federal rules restrict any use of the information to criminally investigate or prosecute any alcohol or drug abuse patient.[facility]In the event this information is protected by the Federal Confidentiality of Alcohol and Drug Abuse Patient Records regulations: The Federal rules restrict any use of the information to criminally investigate or prosecute any alcohol or drug abuse patient.[facility]In the event this information is protected by the Federal Confidentiality of Alcohol and Drug Abuse Patient Records regulations: The Federal rules restrict any use of the information to criminally investigate or prosecute any alcohol or drug abuse patient.[facility]In the event this information is protected by the Federal Confidentiality of Alcohol and Drug Abuse Patient Records regulations: The Federal rules restrict any use of the information to criminally investigate or prosecute any alcohol or drug abuse patient.[facility]In the event this information is protected by the Federal Confidentiality of Alcohol and Drug Abuse Patient Records regulations: The Federal rules restrict any use of the information to criminally investigate or prosecute any alcohol or drug abuse patient.[facility]In the event this information is protected by the Federal Confidentiality of Alcohol and Drug Abuse Patient Records regulations: The Federal rules restrict any use of the information to criminally investigate or prosecute any alcohol or drug abuse patient.[facility]In the event this information is protected by the Federal Confidentiality of Alcohol and Drug Abuse Patient Records regulations: The Federal rules restrict any use of the information to criminally investigate or prosecute any alcohol or drug abuse patient.[facility]In the event this information is protected by the Federal Confidentiality of Alcohol and Drug Abuse Patient Records regulations: The Federal rules restrict any use of the information to criminally investigate or prosecute any alcohol or drug abuse patient.[facility]In the event this information is protected by the Federal Confidentiality of Alcohol and Drug Abuse Patient Records regulations: The Federal rules restrict any use of the information to criminally investigate or prosecute any alcohol or drug abuse patient.[facility] HospitalIn the event this information is protected by the Federal Confidentiality of Alcohol and Drug Abuse Patient Records regulations: The Federal rules restrict any use of the information to criminally investigate or prosecute any alcohol or drug abuse patient.[facility] Reason for Visit (unrecogniz ed section [...] MDM 60-74 MINUTES Montse Lou DO, PhD [address] [place] [address] Referral ID Status Reason Start Date Expiration Date V isits Requested Visits Authorized [id number] Closed PCP Requested Referral 06/01/2023 05/31/2024 1 [...] CT GUIDANCE STEREOTACTIC LOCALIZATION Erik Pineda MD [address] [place] [address] [facility] [place] [address] Referral ID Status Reason Start Date Expiration Date V isits Requested Visits Authorized [id number] Closed Auto-Generate d Referral 01/19/2024 02/17/2025 1 1 Specialty Diagnoses / Procedures Referred By Contac t Referred To Contact MR IMAGING Diagnoses Benign neoplasm of meninges (HCC) Procedures MRI SKULL BASE WO/W IVCON MRI BRAIN BRAIN STEM W/O W/CONTRAST MATERIAL Erik Pineda MD [address] [place] [address] [place] [address] Referral ID Status Reason Start Date Expiration Date V isits Requested Visits Authorized [id number] Closed Auto-Generate d Referral 01/19/2024 02/17/2025 1 1 Reason Comments Appointment Reason Comments Established Patient Pre op consent Reason Comments Daily Headache Reason Comments epidural steroid injection Reason Comments Insurance Authorization Aurelio PA - Medicare / [employer]. Reason Onset Date Comments Refill Request 05/25/2024 Reason Comments Joint Pain Reason Comments Results Care Teams (unrecognized sec tion and content) Team Status: Active Member Role Status Dates Sammie Gonzalez MD Primary Care Provider Active Team Status: Inactive Member Role Status Dates Sammie Gonzalez MD Primary Care Provider Active Russell Shields MD Attending Provider Active Team Status: Inactive Member Role Status Dates Sammie Gonzalez MD Primary Care Provider, Attending Pr ovider Active Field Professional Relationship Specialty Start Date End Date Sammie Gonzalez MD [address] [place] [phone] Referring Family Practice 01/14/21 Team Status: Inactive Member Role Status Dates Sammie Gonzalez MD Primary Care Provider Active Elyssa Gomes MD Attending Provider Active Team Status: Inactive Member Role Status Dates Sammie Gonzalez MD Primary Care Provider Active Gunner Cummings DPM MS Attending Provider Active Field Professional Relationship Specialty Start Date End Date Sammie Gonzalez MD [address] [phone] Referring Family Medicine 01/14/21 Field Professional Relationship Specialty Start Date End Date Sammie Gonzalez MD [address] [phone] Referring Family Medicine 01/14/21 Field Professional Relationship Specialty Start Date End Date Sammie Gonzalez MD Referring Family Medicine 01/14/21 Field Professional Relationship Specialty Start Date End Date Sammie Gonzalez MD Referring Family Medicine 01/14/21 Field Professional Relationship Specialty Start Date End Date Sammie Gonzalez MD Referring Family Medicine 01/14/21 Field Professional Relationship Specialty Start Date End Date Sammie Gonzalez MD Referring Family Medicine 01/14/21 Field Professional Relationship Specialty Start Date End Date Sammie Gonzalez MD Referring Family Medicine 01/14/21 Team Status: Inactive Member Role Status Dates Sammie Gonzalez MD Primary Care Provider Active Zeinab Mckinney ([facility]) , GROUNDS MAINTENANCE SUPERVISOR Attending Provider Active Field Professional Relationship Specialty Start Date End Date Sammie Gonzalez MD [address] [place] [address] PCP - General Family Medicine 05/12/23 Sammie Gonzalez MD Referring Family Medicine 01/14/21 Sammie Gonzalez MD [address] [place] [address] Referring Family Medicine 05/12/23 Field Professional Relationship Specialty Start Date End Date Sammie Gonzalez MD [address] [place] [address] PCP - General Family Medicine 05/12/23 Sammie Gonzalez MD Referring Family Medicine 01/14/21 Sammie Gonzalez MD [address] [place] [facility] [place] [address] Referring Family Medicine 05/12/23 Field Professional Relationship Specialty Start Date End Date Sammie Gonzalez MD [address] [place] [facility] [place] [address] PCP - General Family Medicine 05/12/23 Sammie Gonzalez MD Referring Family Medicine 01/14/21 Sammie Gonzalez MD [address] [place] [facility] [place] [address] Referring Family Medicine 05/12/23 Field Professional Relationship Specialty Start Date End Date Sammie Gonzalez MD [address] [place] [facility] [place] [address] PCP - General Family Medicine 05/12/23 Sammie Gonzalez MD Referring Family Medicine 01/14/21 Sammie Gonzalez MD [address] [place] [facility] [place] [address] Referring Family Medicine 05/12/23 Field Professional Relationship Specialty Start Date End Date Sammie Gonzalez MD [address] [place] [facility] [place] [address] PCP - General Family Medicine 05/12/23 Sammie Gonzalez MD Referring Family Medicine 01/14/21 Sammie Gonzalez MD [address] [place] [facility] [place] [address] Referring Family Medicine 05/12/23 Field Professional Relationship Specialty Start Date End Date Sammie Gonzalez MD [address] [place] [address] PCP - General Family Medicine 05/12/23 Sammie Gonzalez MD Referring Family Medicine 01/14/21 Sammie Gonzalez MD [address] [place] [address] Referring Family Medicine 05/12/23 Field Professional Relationship Specialty Start Date End Date Sammie Gonzalez MD [address] [place] [address] PCP - General Family Medicine 05/12/23 Sammie Gonzalez MD Referring Family Medicine 01/14/21 Sammie Gonzalez MD [address] [place] [address] Referring Family Medicine 05/12/23 Field Professional Relationship Specialty Start Date End Date Sammie Gonzalez MD [address] [place] [address] PCP - General Family Medicine 05/12/23 Sammie Gonzalez MD Referring Family Medicine 01/14/21 Sammie Gonzalez MD [address] [place] [address] Referring Family Medicine 05/12/23 Field Professional Relationship Specialty Start Date End Date Sammie Gonzalez MD [address] [place] [address] PCP - General Family Medicine 05/12/23 Sammie Gonzalez MD Referring Family Medicine 01/14/21 Sammie Gonzalez MD [address] [place] [address] Referring Family Medicine 05/12/23 Team Status: Inactive [...] January 08, 2024 End: January 08, 2024 Field Professional Relationship Specialty Start Date End Date Sammie Gonzalez MD [address] [phone] PCP - General Family Medicine 05/12/23 Sammie Gonzalez MD Referring Family Medicine 01/14/21 Sammie Gonzalez MD [address] [place] [address] Referring Family Medicine 05/12/23 Field Professional Relationship Specialty Start Date End Date Sammie Gonzalez MD [address] [place] [address] PCP - General Family Medicine 05/12/23 Sammie Gonzalez MD Referring Family Medicine 01/14/21 Sammie Gonzalez MD [address] [place] [address] Referring Family Medicine 05/12/23 Field Professional Relationship Specialty Start Date End Date Sammie Gonzalez MD [address] [place] [address] PCP - General Family Medicine 05/12/23 Sammie Gonzalez MD Referring Family Medicine 01/14/21 Sammie Gonzalez MD [address] [place] [address] Referring Family Medicine 05/12/23 Team Status: Inactive Member Role Status Dates Sammie Gonzalez MD Primary Care Provider Active Start: January 26, 2024 End: January 26, 2024 Beti Bowles JUNIOR ACCOUNTING CLERK-C Attending Provider Active Start: January 26, 2024 End: January 26, 2024 Team Status: Inactive Member Role Status Dates Sammie Gonzalez MD Primary Care Provide r, Attending Provider Active Start: February 09, 2024 End: February 09, 2024 Team Status: Inactive Member Role Status David Gonzalez MD Primary Care Provide r, Attending Provider Active Start: February 15, 2024 End: February 15, 2024 Team Status: Inactive Member Role Status Dates Sammie Gonzalez MD Primary Care Provider Active Start: March 04, 2024 End: March 04, 2024 Elyssa Gomes MD Attending Provider Active Start: March 04, 2024 End: March 04, 2024 Field Professional Relationship Specialty Start Date End Date Sammie Gonzalez MD [address] [place] [address] PCP - General Family Medicine 05/12/23 Sammie Gonzalez MD Referring Family Medicine 01/14/21 Sammie Gonzalez MD [address] [place] [address] Referring Family Medicine 05/12/23 Field Professional Relationship Specialty Start Date End Date Sammie Gonzalez MD [address] [place] [address] PCP - General Family Medicine 05/12/23 Sammie Gonzalez MD Referring Family Medicine 01/14/21 Sammie Gonzalez MD [address] [place] [address] Referring Family Medicine 05/12/23 Field Professional Relationship Specialty Start Date End Date Sammie Gonzalez MD [address] [place] [address] PCP - General Family Medicine 05/12/23 Sammie Gonzalez MD Referring Family Medicine 01/14/21 Sammie Gonzalez MD [address] [place] [address] Referring Family Medicine 05/12/23 Team Status: Inactive Member Role Status Dates Sammie Gonzalez MD Primary Care Provide r, Attending Provider Active Start: May 12, 2024 End: May 12, 2024 Field Professional Relationship Specialty Start Date End Date Sammie Gonzalez MD [address] [place] [address] PCP - General Family Medicine 05/12/23 Sammie Gonzalez MD Referring Family Medicine 01/14/21 Sammie Gonzalez MD [address] [place] [address] Referring Family Medicine 05/12/23 Field Professional Relationship Specialty Start Date End Date Sammie Gonzalez MD [address] [place] [address] PCP - General Family Medicine 05/12/23 Sammie Gonzalez MD Referring Family Medicine 01/14/21 Sammie Gonzalez MD [address] [place] [address] Referring Family Medicine 05/12/23 Team Status: Inactive [...] June 22, 2024 End: June 22, 2024 Field Professional Relationship Specialty Start Date End Date Sammie Gonzalez MD [address] [place] [address] PCP - General Family Medicine 03/12/23 Goals (unrecognized section and content) Goals may [...] BE BASED ON THE PRIMARY CLINICAL RECORDS. [facility]. provides no warranty or guarantee of the accuracy or completeness of information in this document.
[2024-07-18 08:09] VITALS: BP 123/70; PULSE 87; TEMP 36.5; O2SAT 98
[2024-07-18 08:11] LABS: Glucometer 85 mg/dL (74-106)
[2024-07-18 08:12] LABS: HCG Qualitative NEGATIVE (NEGATIVE); Internal Control Within Normal Limits
[2024-07-18] MEDS: 0.9 % SODIUM CHLORIDE 500 ML IV (08:19)
[2024-07-18] MEDS: BUPIVACAINE HCL 0.25% PF 25 MG/10 ML VIAL 2 ML INJ (08:48)
[2024-07-18] MEDS: DEXAMETHASONE SOD PHOS 10 MG/ML VIAL INJ (08:48)
[2024-07-18] MEDS: LIDOCAINE HCL 2% 400 MG/20 ML MDV 8 ML INJ (08:48)
--- NOTE | 2024-07-18 08:57 | P.ON_ITS ---
Date of procedure: 07/18/24 Pre-op diagnosis: Pain due to cervical spondylosis without myelopathy Post-op diagnosis: same as pre-op Procedure: Procedure: Left C4-5, 5-6 radiofrequency ablation Medications: Bupivacaine 0.25% 3cc, lidocaine 2% 3cc, kenalog 40mg The patient was seen and examined in the preoperative holding area.? The site was marked.? Written informed consent was obtained and placed on the chart.? The patient was brought to the medical procedure unit and placed in the prone position.? A timeout was completed verifying correct patient, procedure, positioning, and special requirements.? The skin overlying the target points, the designated medial branch, were prepped and draped in the usual sterile fashion.? The target point was achieved with a 20-gauge 15 cm with a 10 mm curved active tip radiofrequency cannula under direct fluoroscopic visualization.? The needle was inserted at level C4 on the left side. Needle tip position was confirmed with lateral fluoroscopic position.? Motor stimulation was carried out at 2 Hz up to 5 volts with the absence of extremity activity.? This was repeated at level C5, 6 on left side.?? Sensory stimulation was carried out.? Concordant pain was realized at the above- mentioned sites.? Then radiofrequency lesioning was carried out times 90 seconds at 80 degrees times 2 lesions at each level.? The radiofrequency probe was removed prior to cannula removal.? The above-mentioned injectate was placed in 1 mL increments.? The needle was removed.? Insertion sites were covered.? The patient was taken to the postoperative recovery area and monitored for an appropriate length of time before being found suitable for discharge in the company of a responsible adult. Anesthesia: MAC Surgeon: Ridge Hollingsworth Pathology: none sent Condition: stable Disposition: no change
[2024-07-18 08:58] VITALS: BP 117/67; PULSE 87; TEMP 36.5; O2SAT 100
[2024-07-18 09:01] VITALS: BP 110/67; PULSE 91; TEMP 36.5; O2SAT 98
== END 2024-07-18 09:23 | disposition home or self-care (01) ==
LOC: SURGOUT 07:46
PROVIDERS: PCP Family Medicine; Visit Provider Anesthesiology
PROC: (CPT 1992; principal; 2024-07-18 08:40)
DX: M47.812 Spondylosis without myelopathy or radiculopathy, cervical region (principal); Z87.891 Personal history of nicotine dependence; J44.9 Chronic obstructive pulmonary disease, unspecified; E78.5 Hyperlipidemia, unspecified; I10 Essential (primary) hypertension; E11.9 Type 2 diabetes mellitus without complications; K21.9 Gastro-esophageal reflux disease without esophagitis; E07.9 Disorder of thyroid, unspecified; Z79.84 Long term (current) use of oral hypoglycemic drugs
CPT/HCPCS: 36415; 64633; 64634; 82948; 84703; J0665; J1100; J2704

== ENCOUNTER 2024-08-01 07:08 | Day surgery (SDC) | payer MEDICARE, MEDICAID, SELFPAY ==
--- OUTSIDE RECORDS SUMMARY | 2024-08-01 07:12 | XMS_ITS | CCD ---
Author Organization [facility] CliniSyhi Care Team Providers Care Business Case Analyst Name Role Phone PHYSICIAN, DEFAULT Unavailable Unavailable PHYSICIAN, DEFAULT Unavailable Unavailable Sammie Gonzalez MD Unavailable Beti Bowles Unavailable Elyssa Gomes Unavailable MD Sammie Gonzalez Primary Care Provider [phone] HUMAIRA Cummings Attending Provider MD Sammie Gonzalez Attending Provider MD Elyssa Gomes Attending Provider MD Sammie Gonzalez Primary Care Provider [phone] MD Sammie Gonzalez Attending Provider MD Elyssa [...] Provider MD Sammie Gonzalez Attending Provider Hank ([facility])MARILEE Attending Provider Sammie Gonzalez MD Unavailable Sammie Gonzalez MD Primary Care Provider [phone] Sammie Gonzalez MD Unavailable Sammie Gonzalez MD Primary Care Provider [phone] Sammie Gonzalez MD Primary Care Provider [phone] MD Sammie Gonzalez Primary Care Provider [phone] MD Sammie Gonzalez Attending Provider [phone] MD Zeinab Wood Attending Provider [phone] PINEDA, ERIK F Referring Unavailable HOY, SAMMIE M Primary Care Unavailable PINEDA, ERIK F Referring Unavailable HOY, SAMMIE M Primary Care Unavailable MD Sammie Gonzalez Primary Care Provider [phone] MD Sammie Gonzalez Attending Provider [phone] MD Sammie Gonzalez Primary Care Provider [phone] MD Sammie Gonzalez Attending Provider HOY, SAMMIE M Primary Care Unavailable ZEINAB WOOD Attending Unavailable HOY, SAMMIE M Primary Care Unavailable RACHELE FENTON Attending Unavailable ZEINAB WOOD Attending Unavailable HOY, SAMMIE M Primary Care Unavailable LOUMONTSE Referring Unavailable PINEDA, ERIK Attending Unavailable HOY, SAMMIE M Primary Care Unavailable MONTSE LOU Referring Unavailable CHERISE, FAHAD Attending Unavailable HOY, SAMMIE M Primary Care Unavailable LOUMONTSE DUARTE Referring Unavailable MONTSE LOU Attending Unavailable HOY, SAMMIE M Primary Care Unavailable HOY, SAMMIE M Primary Care Unavailable MD Sammie Gonzalez Primary Care Provider [phone] MD Sammie Gonzalez Attending Provider LiusySammie Admitting Unavailable Hoy, Sammie M Attending Unavailable Hoy, Sammie M Primary Care Unavailable Zeinab Wood Admitting Unavailable Zeinab Wodo Attending Unavailable Sammie Gonzalez Primary Care Unavailable Sammie Gonzalez M Admitting Unavailable Sammie Gonzalez M Attending Unavailable Sammie Gonzalez M Primary Care Unavailable Sammie Gonzalez M Admitting Unavailable Sammie Gonzalez M Attending Unavailable Sammie Gonzalez Primary Care Unavailable Sammie Gonzalez M Admitting Unavailable Sammie Gonzalez M Attending Unavailable Sammie Gonzalez M Primary Care Unavailable Sammie Gonzalez M Admitting Unavailable Sammie Gonzalez M Attending Unavailable Sammie Gonzalez Primary Care Unavailable Sammie Gonzalez MD Primary Care Provider [phone] WANDY PHILLIPS Attending Unavailable YOLA CARABALLO Attending Unavailable ESTEVAN POLANCO Attending Unavailable Gigeorgianaitis , Ridge Garcia Attending Unavailable Gigeorgianaitis , Andnestor Garcia Attending Unavailable Gigeorgianaitis , Andnestor Garcia Attending Unavailable Gigeorgianaitis , Andnestor Garcia Attending Unavailable Gieditis , Andnestor Garcia Attending Unavailable Gieditis , Andnestor Garcia Attending Unavailable Medications Current Medications Medication Drug [...] four times daily as needed for headache yorjexohmr-mfxupzcwrznls-jzcyrbhu 50-325-40 MG tablet TAKE 1 TABLET BY [...] on above: Take 1 capsule by mo ut twice daily. Dexlansoprazole (Dexilant) 60 mg capsule,biphase delayed releas (17 sources) Start: 10-10-19 take 1 capsule by mouth twice daily Dexlansoprazole (Dexilant) 60 mg capsule,biphase delayed releas Active 60 MG PO Twice daily October 10, 2021 12:00am Start: 10-10-2021 take 1 capsule by mo ut twice daily Dexlansoprazole (Dexilant) 60 mg capsule,biphase [...] daily. docusate sodium 50 mg / sennosides, fdc 8.6 mg oral tablet (1 source) take 1 tablet by mouth every twelve hours Senokot S 8.6-50 MG 1 tablet as needed Orally Twice a day Active doxepin hydrochloride 10 mg oral capsule (20 sources) Tricyclic Antidepressant Start: 10-28-2018 take 10 mg by mouth three times daily Doxepin Active 10 MG PO Three times daily October 28, 2018 1:00am take 1 capsule by [facility] every twenty-four hours Doxepin HCl 10 [...] Active Start: 10-01-2023 take 1 tablet by [facility] once daily DULoxetine (CYMBALTA) 60 mg capsule [...] Comment on above: Take 1 capsule by [facility] once daily. TAKE 1 CAPSULE BY [facility] EVERY DAY etodolac 400 mg oral tablet [...] mg by inhalation every six hours Ipratropium Brady Active 0.5 MG INHALATION Q6H September 11, 2020 1:00am iv contrast (will be provided with radiology test) (1 source) Star t: 04-02 24 End: 05-03 inject 1 dose intravenously once, [...] 12, 2017 1:00am take 1 tablet by [facility] every twenty-four hours lamoTRIgine 200 MG [...] Active Start: 10-28-2018 take 1 capsule by [facility] twice daily Lubiprostone (Amitiza) 24 mcg capsule Active 24 MCG PO Twice daily October 28, 2018 12:00am Start: 10-28-2018 take 1 capsule by [facility] twice daily Lubiprostone (Amitiza) 24 mcg capsule Active 24 MCG PO Twice daily October 28, 2018 1:00am take 1 capsule by [facility] twice daily at mealtime Amitiza 24 [...] Comment on above: Take 1 capsule by [facility] daily at bedtime. ondansetron 4 mg [...] bedtime. 06/19/2022 Active take 1 capsule by [facility] every twenty-four hours Lyrica 100 MG [...] 18, 2021 October 02, 2021 4:22am amylase 473323 unt / lipase 95496 unt / protease 60877 unt delayed release oral capsule (17 sources) Start: 09-12-2017 End: 10-28-2018 take 87189-88161 capsules by mouth three times daily Qaovkw-Uclfztqm-Qr ylase (Creon) 24,000-76,000 -120,000 unit capsule,delayed release(DR/EC) [...] 06-22-2024 TSH Qn 2.24 m[IU]/L Normal 0.45-5.33 [facility] Comment on above: Order Comment: PIPER BOX JKW Result Comment: PERF ORMED BY: [facility] [address] [place] [address] PATHOLOGIST COMPLIANCE ATTORNEY MONIK SILVESTRE M.D. Performed By: #### T 4T, T3F, TSH3 ####[address] [place] [address] [facility] Thyroxine (T4) [Mass/volume] in Serum or PlasmaOrdered By: Sammie Gonzalez on 06-22-2024 T4 [Mass/Vol] 11.23 ug/dL Normal 5.39-11.82 [facility] Comment on above: Order Comment: PIPER ROBLERO Performed By: #### T 4T, T3F, TSH3 ####[address] [place] [address] [facility] Triiodothyronine (T3) Freeon 06-22-2024 Triiodothyronine (T3) Free 2.96 pg/mL Normal 2.50-3.90 [facility] Comment on above: Order Comment: PIPER ROBLERO Result Comment: PERF ORMED BY: [facility] [address] [facility] [place] [id number] PATHOLOGIST COMPLIANCE ATTORNEY MONIK SILVESTRE M.D. Performed By: #### T 4T, T3F, TSH3 ####[address] [place] [address] [facility] Triiodothyronine (T3) Free [ Mass/volume] in Serum or PlasmaOrdered By: Sammie Gonzalez on 06-22-2024 Free T3 [Mass/Vol] 2.96 pg/mL 2.50-3.90 [facility] CNOVon 05-30-2024 CNOV Office Visit (ISSA ) KOURTNEY NOVAK ([id number]) 1975 F Date Time Provider Department 05/30/24 [...] are p (more content not included)... Normal [facility] A1C with Estimated Average G tanesha 05-12-2024 Glucose [Mass/Vol] 114 mg/dL Normal The Counts include 234 beds at the [facility] Comment on above: Order Comment: FASTJimmy SANTOS. JKW Result Comment: PERF ORMED BY: [place] [address] PATHOLOGIST COMPLIANCE ATTORNEY MONIK SILVESTRE M.D. Performed By: #### V [id number], TSH3, A1C WTH eA, DIFF CBC, [id number], LIPID, FE, CMP, T3F, T4T #### [facility] [address] [place] [address] #### INSULIN #### [facility] , Alanine aminotransferase [En zymatic activity/volume] in Serum or PlasmaOrdered By: Sammie Gonzalez on 05-12-2024 ALT [Catalytic activity/Vol] 17 U/L Normal 7-52 [facility] Comment on above: Order Comment: FASTI DANIELLE. JKW Performed By: #### V [id number], TSH3, A1C WTH eA, DIFF CBC, [id number], LIPID, FE, CMP, T3F, T4T #### [facility] [address] [place] [address] #### INSULIN #### [facility] , Albumin [Mass/volume] in Ser um or Plasma by Bromocresol green (BCG) dye binding methoOrdered By: Sammie Gonzalez on 05-12-2024 Albumin BCG dye [Mass/Vol] 4.1 g/dL 3.5-5.7 [facility] Alkaline phosphatase [Enzyma tic activity/volume] in Serum or PlasmaOrdered By: Sammie Gonzalez on 05-12-2024 ALP [Catalytic activity/Vol] 42 U/L Normal 34-104 [facility] Comment on above: Order Comment: PIPER SANTOS. JKW Performed By: #### V [id number], TSH3, A1C WTH eA, DIFF CBC, [id number], LIPID, FE, CMP, T3F, T4T #### [facility] [address] [place] [address] [place] #### INSULIN #### [facility] , Anisocytosis [Presence] in B lood by Light microscopyOrdered By: Sammie Gonzalez on 05-12-2024 Anisocytosis Ql (Bld) Slight Normal [facility] Comment on above: Order Comment: FASTJimmy SANTOS. JKW Performed By: #### V [id number], TSH3, A1C WTH eA, DIFF CBC, [id number], LIPID, FE, CMP, T3F, T4T ####[facility] [place] [address] [place]#### INSULIN ####[facility] , Aspartate aminotransferase [ Enzymatic activity/volume] in Serum or PlasmaOrdered By: Sammie Gonzalez on 05-12-2024 AST [Catalytic activity/Vol] 11 U/L Low 13-39 [facility] Comment on above: Order Comment: PIPER SANTOS. JKW Performed By: #### V [id number], TSH3, A1C WTH eA, DIFF CBC, [id number], LIPID, FE, CMP, T3F, T4T #### [facility] [address] [place] [address] [place] #### INSULIN #### [facility] , Basophils Auto (Bld) [#/Vol] Ordered By: Sammie Gonzalez on 05-12-2024 Basophils (Bld) [#/Vol] N/A [facility] Basophils/100 WBC Auto (Bld) Ordered By: Sammie Gonzalez on 05-12-2024 Basophils/100 WBC (Bld) N/A [facility] Basophils/100 leukocytes in Blood by Manual countOrdered By: Sammie Gonzalez on 05-12-2024 Basophils/100 WBC (Bld) 1 % Normal 0-2 [facility] Comment on above: Order Comment: FASTI NG. JKW Performed By: #### V [id number], TSH3, A1C WTH eA, DIFF CBC, [id number], LIPID, FE, CMP, T3F, T4T ####[facility] [address]#### INSULIN ####[facility] , Bilirubin.total [Mass/volume ] in Serum or PlasmaOrdered By: Sammie Gonzalez on 05-12-2024 Bilirubin [Mass/Vol] 0.4 mg/dL Normal 0.3-1.0 [facility] Comment on above: Order Comment: FASTI NG. JKW Performed By: #### V [id number], TSH3, A1C WTH eA, DIFF CBC, [id number], LIPID, FE, CMP, T3F, T4T #### [facility] [address] #### INSULIN #### [facility] , Calcium [Mass/volume] in Ser um or PlasmaOrdered By: Sammie Gonzalez on 05-12-2024 Calcium [Mass/Vol] 9.4 mg/dL Normal 8.6-10.3 [facility] Comment on above: Order Comment: FASTI NG. JKW Performed By: #### V [id number], TSH3, A1C WTH eA, DIFF CBC, [id number], LIPID, FE, CMP, T3F, T4T #### [facility] [address] #### INSULIN #### [facility] , Carbon dioxide, total [Moles /volume] in Serum or PlasmaOrdered By: Sammie Gonzalez on 05-12-2024 CO2 [Moles/Vol] 27.0 mmol/L Normal 21.0-31.0 [facility] Comment on above: Order Comment: FASTI NG. JKW Performed By: #### V [id number], TSH3, A1C WTH eA, DIFF CBC, [id number], LIPID, FE, CMP, T3F, T4T #### [facility] [address] #### INSULIN #### [facility] , Chloride [Moles/volume] in S micki or PlasmaOrdered By: Sammie Gonzalez on 05-12-2024 Chloride [Moles/Vol] 101 mmol/L Normal 98-107 [facility] Comment on above: Order Comment: FASTI NG. JKW Performed By: #### V [id number], TSH3, A1C WTH eA, DIFF CBC, [id number], LIPID, FE, CMP, T3F, T4T #### [facility] [address] #### INSULIN #### [facility] , Cholesterol [Mass/volume] in Serum or PlasmaOrdered By: Sammie Gonzalez on 05-12-2024 Cholesterol [Mass/Vol] 191 mg/dL Normal 140-200 [facility] Comment on above: Chol less than 200 m g/dl low riskChol 201-239 mg/dl borderline riskChol 240 mg/dl and greater high risk Order Comment: FASTI NG. JKW Result Comment: Chol less than 200 mg/dl low risk Chol 201-239 mg/dl borderline risk Chol 240 mg/dl and greater high risk Performed By: #### V [id number], TSH3, A1C WTH eA, DIFF CBC, [id number], LIPID, FE, CMP, T3F, T4T ####[facility] [address] [place] [address] [place]#### INSULIN ####[facility] , Cholesterol in LDL Calc [Mas s/Vol]Ordered By: Sammie Gonzalez on 05-12-2024 Cholesterol in LDL [Mass/Vol] 76 mg/dL 0-100 [facility] Comment on above: LDL ATP III CLASSIFI CATIONLDL less than 100 mg/dL OptimalLDL 100-129 mg/dL Near or above optimalLDL 130-159 mg/dL Borderline highLDL 160-189 mg/dL HighLDL greater than 189 mg/dL Very high Cholesterol in VLDL Calc [Ma ss/Vol]Ordered By: Sammie Gonzalez on 05-12-2024 Cholesterol in VLDL [Mass/Vol] 29 mg/dL [facility] Comprehensive Metabolic Pane costa 05-12-2024 Albumin [Mass/Vol] 4.1 g/dL Normal 3.5-5.7 The Counts include 234 beds at the [facility] Comment on above: Order Comment: FASTI NG. JKW Performed By: #### V [id number], TSH3, A1C WTH eA, DIFF CBC, [id number], LIPID, FE, CMP, T3F, T4T #### [facility] [address] [place] [address] #### INSULIN #### [facility] , GFR/1.73 sq M.predicted MDRD (S/P/Bld) [Vol rate/Area] mL/min/{1.73_m2} Normal [facility] Comment on above: Order Comment: FASTI NG. JKW Performed By: #### V [id number], TSH3, A1C WTH eA, DIFF CBC, [id number], LIPID, FE, CMP, T3F, T4T #### [facility] [address] [place] [address] [place] #### INSULIN #### [facility] , Creatinine [Mass/volume] in Serum or PlasmaOrdered By: Sammie Gonzalez on 05-12-2024 Creatinine [Mass/Vol] 1.05 mg/dL Normal 0.60-1.20 [facility] Comment on above: Order Comment: FASTI NG. JKW Performed By: #### V [id number], TSH3, A1C WTH eA, DIFF CBC, [id number], LIPID, FE, CMP, T3F, T4T #### [facility] [address] [place] [address] [place] #### INSULIN #### [facility] , Diff and CBCon 05-12-2024 Mean Corpuscular HGB Conc 33.0 g/dL Normal 32.0-35.0 [facility] Comment on above: Order Comment: FASTI NG. JKW Performed By: #### V [id number], TSH3, A1C WTH eA, DIFF CBC, [id number], LIPID, FE, CMP, T3F, T4T ####[address]#### INSULIN ####[facility] , Metamyelocytes 2 % High 0-0 [facility] Comment on above: Order Comment: FASTI NG. JKW Performed By: #### V [id number], TSH3, A1C WTH eA, DIFF CBC, [id number], LIPID, FE, CMP, T3F, T4T ####[address]#### INSULIN ####[facility] , Microcytosis Slight Normal [facility] Comment on above: Order Comment: FASTI NG. JKW Performed By: #### V [id number], TSH3, A1C WTH eA, DIFF CBC, [id number], LIPID, FE, CMP, T3F, T4T ####[address]#### INSULIN ####[facility] , Platelet Estimate Normal Normal Normal The [facility] Comment on above: Order Comment: FASTI NG. JKW Performed By: #### V [id number], TSH3, A1C WTH eA, DIFF CBC, [id number], LIPID, FE, CMP, T3F, T4T ####[address]#### INSULIN ####[facility] , Platelet Morphology Normal Normal Normal [facility] Comment on above: Order Comment: FASTI NG. JKW Result Comment: PERF ORMED BY: [facility] [address] [place] [address] PATHOLOGIST COMPLIANCE ATTORNEY MONIK SILVESTRE M.D. Performed By: #### V [id number], TSH3, A1C WTH eA, DIFF CBC, [id number], LIPID, FE, CMP, T3F, T4T ####[place] [address]#### INSULIN ####[facility] , Eosinophils Auto (Bld) [#/Vo l]Ordered By: Sammie Gonzalez on 05-12-2024 Eosinophils (Bld) [#/Vol] N/A [facility] Eosinophils/100 WBC Auto (Bl d)Ordered By: Sammie Gonzalez on 05-12-2024 Eosinophils/100 WBC (Bld) N/A [facility] Eosinophils/100 leukocytes i n Blood by Manual countOrdered By: Sammie Gonzalez on 05-12-2024 Eosinophils/100 WBC (Bld) 2 % Normal 1-3 [facility] Comment on above: Order Comment: FASTI NG. JKW Performed By: #### V [id number], TSH3, A1C WTH eA, DIFF CBC, [id number], LIPID, FE, CMP, T3F, T4T ####[address]#### INSULIN ####[facility] , Erythrocyte distribution wid th [Ratio] by Automated countOrdered By: Sammie Gonzalez on 05-12-2024 Erythrocyte distribution width (RBC) [Ratio] 13.9 % Normal 11.9-15.3 [facility] Comment on above: Order Comment: FASTI NG. JKW Performed By: #### V [id number], TSH3, A1C WTH eA, DIFF CBC, [id number], LIPID, FE, CMP, T3F, T4T ####[place] [address] [place]#### INSULIN ####[facility] , Erythrocytes [#/volume] in B lood by Automated countOrdered By: Sammie Gonzalez on 05-12-2024 RBC (Bld) [#/Vol] 4.30 10*6/uL Normal 3.60-5.00 [facility] Comment on above: Order Comment: PIPER SANTOS. JKW Performed By: #### V [id number], TSH3, A1C WTH eA, DIFF CBC, [id number], LIPID, FE, CMP, T3F, T4T ####[facility] [address]#### INSULIN ####[facility] , Folate [Mass/volume] in Seru m or PlasmaOrdered By: Sammie Gonzalez on 05-12-2024 Folate [Mass/Vol] 7.8 ng/mL >5.9 [facility] Comment on above: Folate reference ran ge: >5.9 ng/mlThe WHO technical consultation on folate and vitamin [id number] has determined that folate concentrations lessthan 4 ng/ml are considered deficient. Glucose [Mass/volume] in Ser um or PlasmaOrdered By: Sammie Gonzalez on 05-12-2024 Glucose [Mass/Vol] 111 mg/dL High 70-100 [facility] Comment on above: ADA recommended refe rence rangeRandom Glucose Reference Range is dependent on time and content of last meal. Glucose of more than 200 mg/dL in a nonstressed, ambulatory subject supports the diagnosis of Diabetes Mellitus. Order Comment: PIPER SANTOS. JKW Result Comment: [place] om Glucose Reference Range is dependent on time and content of last meal. Glucose of more than 200 mg/dL in a nonstressed, ambulatory subject supports the diagnosis of Diabetes Mellitus. ADA recommended reference range Performed By: #### V [id number], TSH3, A1C WTH eA, DIFF CBC, [id number], LIPID, FE, CMP, T3F, T4T #### [facility] [address] #### INSULIN #### [facility] , Glucose mean value [Mass/vol ume] in Blood Estimated from glycated hemoglobinOrdered By: Sammie Gonzalez on 05-12-2024 Average glucose Estimated from glycated hemoglobin (Bld) [Mass/Vol] 114 mg/dL [facility] Hematocrit [Volume Fraction] of Blood by Automated countOrdered By: Sammie Gonzalez on 05-12-2024 Hematocrit (Bld) [Volume fraction] 39.1 % Normal 34.0-46.4 [facility] Comment on above: Order Comment: FASTI NG. JKW Performed By: #### V [id number], TSH3, A1C WTH eA, DIFF CBC, [id number], LIPID, FE, CMP, T3F, T4T ####[place] [address]#### INSULIN ####[facility] , Hemoglobin A1c percentageOrd ered By: Sammie Gonzalez on 05-12-2024 HbA1c (Bld) [Mass fraction] 5.6 % Normal 4.3-5.6 [facility] Comment on above: Increased risk for d iabetes: 5.7 - 6.4diabetes: >6.4glycemic control for adults with diabetes: <7.0 Order Comment: FASTI NG. JKW Result Comment: Incr eased risk for diabetes: 5.7 - 6.4 diabetes: >6.4 glycemic control for adults with diabetes: <7.0 Performed By: #### V [id number], TSH3, A1C WTH eA, DIFF CBC, [id number], LIPID, FE, CMP, T3F, T4T #### [facility] [address] #### INSULIN #### [facility] , Hemoglobin [Mass/volume] in BloodOrdered By: Sammie Gonzalez on 05-12-2024 Hemoglobin (Bld) [Mass/Vol] 12.9 g/dL Normal 11.8-15.4 [facility] Comment on above: Order Comment: FASTI NG. JKW Performed By: #### V [id number], TSH3, A1C WTH eA, DIFF CBC, [id number], LIPID, FE, CMP, T3F, T4T ####[address]#### INSULIN ####[facility] , Insulinon 05-12-2024 Insulin 38.1 u[iU]/mL High 2.6-24.9 [facility] Comment on above: Order Comment: FASTI NG. JKW Result Comment: Perf ormed at: - [facility] [id number] [place], [place] [id number] [employer]: Maxim Daniel PhD, Phone: [phone] PERFORMED BY: [facility] [address] [place] [address] PATHOLOGIST COMPLIANCE ATTORNEY MONIK SILVESTRE M.D. Performed By: #### V [id number], TSH3, A1C WTH eA, DIFF CBC, [id number], LIPID, FE, CMP, T3F, T4T ####[place] [address]#### INSULIN ####[facility] , Iron [Mass/volume] in Serum or PlasmaOrdered By: Sammie Gonzalez on 05-12-2024 Iron [Mass/Vol] 80 ug/dL Normal 50-212 [facility] Comment on above: Order Comment: FASTI NG. JKW Performed By: #### V [id number], TSH3, A1C WTH eA, DIFF CBC, [id number], LIPID, FE, CMP, T3F, T4T ####[address]#### INSULIN ####[facility] , Leukocytes [#/volume] correc jana for nucleated erythrocytes in Blood by Automated counOrdered By: Sammie Gonzalez on 05-12-2024 WBC corrected for nucl RBC Auto (Bld) [#/Vol] 11.8 10*3/uL High 3.8-11.6 [facility] Leukocytes [#/volume] in Blo od by Automated countOrdered By: Sammie Gonzalez on 05-12-2024 WBC (Bld) [#/Vol] 11.8 10*3/uL High 3.8-11.6 [facility] Comment on above: Order Comment: FASTI NG. JKW Performed By: #### V [id number], TSH3, A1C WTH eA, DIFF CBC, [id number], LIPID, FE, CMP, T3F, T4T ####[address]#### INSULIN ####[facility] , Lipid Panelon 05-12-2024 LDL Cholesterol,Calculated 76 mg/dL Normal 0-100 [facility] Comment on above: Order Comment: FASTI NG. JKW Result Comment: LDL ATP III CLASSIFICATION LDL less than 100 mg/dL Optimal LDL 100-129 mg/dL Near or above optimal LDL 130-159 mg/dL Borderline high LDL 160-189 mg/dL High LDL greater than 189 mg/dL Very high Performed By: #### V [id number], TSH3, A1C WTH eA, DIFF CBC, [id number], LIPID, FE, CMP, T3F, T4T ####[address]#### INSULIN ####[facility] , Triglyceride w/Reflex 146 mg/dL Normal 0-149 [facility] Comment on above: Order Comment: FASTI NG. JKW Result Comment: TRIG ATP III CLASSIFICATION TRIG less than 150 mg/dL Normal TRIG 150-199 mg/dL Borderline high TRIG 200-500 mg/dL High TRIG greater than 500 mg/dL Very high Standard traceable to the Center for Disease Conrtrol and Prevention (CDC) test method. Performed By: #### V [id number], TSH3, A1C WTH eA, DIFF CBC, [id number], LIPID, FE, CMP, T3F, T4T ####[address]#### INSULIN ####[facility] , VLDL CHOLESTEROL 29 mg/dL Normal [facility] Comment on above: Order Comment: FASTI NG. JKW Performed By: #### V [id number], TSH3, A1C WTH eA, DIFF CBC, [id number], LIPID, FE, CMP, T3F, T4T ####[address] [place] [address] [place]#### INSULIN ####[facility] , Lymphocytes Auto (Bld) [#/Vo l]Ordered By: Sammie Gonzalez on 05-12-2024 Lymphocytes (Bld) [#/Vol] N/A [facility] Lymphocytes/100 WBC Auto (Bl d)Ordered By: Sammie Gonzalez on 05-12-2024 Lymphocytes/100 WBC (Bld) N/A [facility] Lymphocytes/100 leukocytes i n Blood by Manual countOrdered By: Sammei Gonzalez on 05-12-2024 Lymphocytes/100 WBC (Bld) 28 % Normal 18-42 [facility] Comment on above: Order Comment: FASTI NG. JKW Performed By: #### V [id number], TSH3, A1C WTH eA, DIFF CBC, [id number], LIPID, FE, CMP, T3F, T4T ####[address]#### INSULIN ####[facility] , MCH [Entitic mass] by Automa jana countOrdered By: Sammie Gonzalez on 05-12-2024 MCH (RBC) [Entitic mass] 29.9 pg Normal 24.7-34.3 [facility] Comment on above: Order Comment: FASTI NG. JKW Performed By: #### V [id number], TSH3, A1C WTH eA, DIFF CBC, [id number], LIPID, FE, CMP, T3F, T4T ####[address]#### INSULIN ####[facility] , MCHC Auto (RBC) [Mass/Vol]Or dered By: Sammie Gonzalez on 05-12-2024 MCHC (RBC) [Mass/Vol] 33.0 g/dL 32.0-35.0 [facility] MCV [Entitic volume] by Auto mated countOrdered By: Sammie Gonzalez on 05-12-2024 MCV (RBC) [Entitic vol] 90.8 fL Normal 80-100 [facility] Comment on above: Order Comment: FASTI NG. JKW Performed By: #### V [id number], TSH3, A1C WTH eA, DIFF CBC, [id number], LIPID, FE, CMP, T3F, T4T ####[facility] [id number] [address]#### INSULIN ####[facility] , Manual blood segmented neutr ophils/100 leukocytesOrdered By: Sammie Gonzalez on 05-12-2024 Segmented neutrophils/100 WBC (Bld) 54 % Normal 50-70 [facility] Comment on above: Order Comment: FASTI NG. JKW Performed By: #### V [id number], TSH3, A1C WTH eA, DIFF CBC, [id number], LIPID, FE, CMP, T3F, T4T ####[facility] Fsi6573 [address]#### INSULIN ####[facility] , Metamyelocytes/100 WBC Manua l cnt (Bld)Ordered By: Sammie Gonzalez on 05-12-2024 Metamyelocytes/100 WBC (Bld) 2 % High 0-0 [facility] Microcytes LM Ql (Bld)Ordere d By: Sammie Gonzalez on 05-12-2024 Microcytes Ql (Bld) Slight [facility] Monocytes Auto (Bld) [#/Vol] Ordered By: Sammie Gonzalez on 05-12-2024 Monocytes (Bld) [#/Vol] N/A [facility] Monocytes/100 WBC Auto (Bld) Ordered By: Sammie Gonzalez on 05-12-2024 Monocytes/100 WBC (Bld) N/A [facility] Monocytes/100 leukocytes in Blood by Manual countOrdered By: Sammie Gonzalez on 05-12-2024 Monocytes/100 WBC (Bld) 12 % High 2-11 [facility] Comment on above: Order Comment: FASTI NG. JKW Performed By: #### V [id number], TSH3, A1C WTH eA, DIFF CBC, [id number], LIPID, FE, CMP, T3F, T4T ####[facility]#### INSULIN ####[facility] , Neutrophils Auto (Bld) [#/Vo l]Ordered By: Sammie Gonzalez on 05-12-2024 Neutrophils (Bld) [#/Vol] N/A [facility] Neutrophils/100 WBC Auto (Bl d)Ordered By: Sammie Gonzalez on 05-12-2024 Neutrophils/100 WBC (Bld) N/A [facility] No Panel InformationOrdered By: Sammie Gonzalez on 05-12-2024 Estimated GFR (CKD-EPI) > 60.0 mL/Min [facility] Creatinine Clearance (Chem N/A [facility] Nucleated erythrocytes [Pres ence] in Blood by Automated countOrdered By: Sammie Gonzalez on 05-12-2024 Nucleated RBC Auto Ql (Bld) N/A [facility] Peripheral white blood cell differential % bands, microscopic examOrdered By: Sammie Gonzalez on 05-12-2024 Band form neutrophils/100 WBC (Bld) 1 % Normal 0-5 [facility] Comment on above: Order Comment: PIPER FoleyKW Performed By: #### V [id number], TSH3, A1C WTH eA, DIFF CBC, [id number], LIPID, FE, CMP, T3F, T4T ####[facility]#### INSULIN ####[facility] , Platelet adequacy [Presence] in Blood by Light microscopyOrdered By: Sammie Gonzalez on 05-12-2024 Platelets LM Ql (Bld) Normal Normal [facility] Platelet mean volume [Entiti c volume] in Blood by Automated countOrdered By: Sammie Gonzalez on 05-12-2024 Platelet mean volume (Bld) [Entitic vol] 8.1 fL Normal 6.3-10.7 [facility] Comment on above: Order Comment: FASTJimmy FoleyKW Performed By: #### V [id number], TSH3, A1C WTH eA, DIFF CBC, [id number], LIPID, FE, CMP, T3F, T4T ####[facility] [place] [address] [place]#### INSULIN ####[facility] , Platelet morphology finding [Identifier] in BloodOrdered By: Sammie Gonzalez on 05-12-2024 Platelet morphology finding Nom (Bld) Normal Normal [facility] Platelets [#/volume] in Bloo d by Automated countOrdered By: Sammie Gonzalez on 05-12-2024 Platelets (Bld) [#/Vol] 392 10*3/uL Normal 150-450 [facility] Comment on above: Order Comment: FASTI NG. JKW Performed By: #### V [id number], TSH3, A1C WTH eA, DIFF CBC, [id number], LIPID, FE, CMP, T3F, T4T ####[facility]#### INSULIN ####[facility] , Potassium [Moles/volume] in Serum or PlasmaOrdered By: Sammie Gonzalez on 05-12-2024 Potassium [Moles/Vol] 4.1 mmol/L Normal 3.5-5.1 [facility] Comment on above: Order Comment: FASTI NG. JKW Performed By: #### V [id number], TSH3, A1C WTH eA, DIFF CBC, [id number], LIPID, FE, CMP, T3F, T4T #### [facility] [address] #### INSULIN #### [facility] , Protein [Mass/volume] in Ser um or PlasmaOrdered By: Sammie Gonzalez on 05-12-2024 Protein [Mass/Vol] 6.1 g/dL Low 6.4-8.9 [facility] Comment on above: Order Comment: FASTI NG. JKW Performed By: #### V [id number], TSH3, A1C WTH eA, DIFF CBC, [id number], LIPID, FE, CMP, T3F, T4T #### [facility] [address] [place] [address] #### INSULIN #### [facility] , RBC morphologyOrdered By: Do websterten Gonzalez on 05-12-2024 RBC morphology finding Nom (Bld) N/A [facility] Serum globulin measurement b y calculation (mass/volume)Ordered By: Sammie Hopiedad on 05-12-2024 Globulin (S) [Mass/Vol] 2.0 g/dL Normal [facility] Comment on above: Order Comment: FASTI NG. JKW Performed By: #### V [id number], TSH3, A1C WTH eA, DIFF CBC, [id number], LIPID, FE, CMP, T3F, T4T #### [address] #### INSULIN #### [facility] , Serum or plasma albumin/glob ulin mass ratioOrdered By: Sammie Janice on 05-12-2024 Albumin/Globulin [Mass ratio] 2.1 {ratio} Normal [facility] Comment on above: Order Comment: FASTI NG. JKW Performed By: #### V [id number], TSH3, A1C WTH eA, DIFF CBC, [id number], LIPID, FE, CMP, T3F, T4T #### [place] [address] [place] #### INSULIN #### [facility] , Serum or plasma anion gap de terminationOrdered By: Sammie Janice on 05-12-2024 Anion gap [Moles/Vol] 12.1 mmol/L Normal 6.0-15.0 [facility] Comment on above: Order Comment: FASTI NG. JKW Performed By: #### V [id number], TSH3, A1C WTH eA, DIFF CBC, [id number], LIPID, FE, CMP, T3F, T4T #### [facility] [address] [place] [address] [place] #### INSULIN #### [facility] , Serum or plasma high density lipoprotein (HDL) cholesterol measurementOrdered By: Sammie Gonzalez on 05-12-2024 Cholesterol in HDL [Mass/Vol] 86 mg/dL Normal 23-92 [facility] Comment on above: HDL CHOL ATP-III CLA SSIFICATION Cardiovascular RiskHDL > or equal to 60 mg/dL LOWHDL < 40 mg/dL HIGH Order Comment: PIPER FoleyKW Result Comment: HDL CHOL ATP-III CLASSIFICATION Cardiovascular Risk HDL > or equal to 60 mg/dL LOW HDL < 40 mg/dL HIGH Performed By: #### V [id number], TSH3, A1C WTH eA, DIFF CBC, [id number], LIPID, FE, CMP, T3F, T4T ####[facility] [id number] [address]#### INSULIN ####[facility] , Serum or plasma insulin kiara urement (units/volume)Ordered By: Sammie Gonzalez on 05-12-2024 Insulin Qn 38.1 u[iU]/mL High 2.6-24.9 [facility] Comment on above: Performed at: [address] Director: Maxim Daniel PhD, Phone: [phone] Serum or plasma total choles terol/high density lipoprotein (HDL) cholesterol mass ratOrdered By: Sammie Gonzalez on 05-12-2024 Cholesterol.total/Tali sterol in HDL [Mass ratio] 2.2 {ratio} Normal <5.0 [facility] Comment on above: Order Comment: PIPER BOX JKW Performed By: #### V [id number], TSH3, A1C WTH eA, DIFF CBC, [id number], LIPID, FE, CMP, T3F, T4T ####[facility] Khe[address]#### INSULIN ####[facility] , Sodium [Moles/volume] in Ser um or PlasmaOrdered By: Sammie Gonzalez on 05-12-2024 Sodium [Moles/Vol] 136 mmol/L Normal 136-145 [facility] Comment on above: Order Comment: FASTI NG. JKW Performed By: #### V [id number], TSH3, A1C WTH eA, DIFF CBC, [id number], LIPID, FE, CMP, T3F, T4T #### [facility] [address] #### INSULIN #### [facility] , Thyrotropin [Units/volume] i n Serum or PlasmaOrdered By: Sammie Gonzalez on 05-12-2024 TSH Qn 6.32 m[IU]/L High 0.45-5.33 [facility] Comment on above: Order Comment: FASTI NG. JKW Performed By: #### V [id number], TSH3, A1C WTH eA, DIFF CBC, [id number], LIPID, FE, CMP, T3F, T4T ####[place] [id number] [address]#### INSULIN ####[facility] , Thyroxine (T4) [Mass/volume] in Serum or PlasmaOrdered By: Sammie Gonzalez on 05-12-2024 T4 [Mass/Vol] 11.59 ug/dL Normal 5.39-11.82 [facility] Comment on above: Order Comment: FASTI NG. JKW Performed By: #### V [id number], TSH3, A1C WTH eA, DIFF CBC, [id number], LIPID, FE, CMP, T3F, T4T ####[place] [address] [place]#### INSULIN ####[facility] , Triglyceride [Mass/volume] i n Serum or PlasmaOrdered By: Sammie Gonzalez on 05-12-2024 Triglyceride [Mass/Vol] 146 mg/dL 0-149 [facility] Comment on above: TRIG ATP III CLASSIF ICATIONTRIG less than 150 mg/dL NormalTRIG 150-199 mg/dL Borderline highTRIG 200-500 mg/dL High TRIG greater than 500 mg/dL Very highStandard traceable to the Center for Disease Conrtrol and Prevention (CDC) test method. Triiodothyronine (T3) Freeon 05-12-2024 Triiodothyronine (T3) Free 3.61 pg/mL Normal 2.50-3.90 [facility] Comment on above: Order Comment: PIPER SANTOS. JKW Result Comment: PERF ORMED BY: [place] [address] PATHOLOGIST COMPLIANCE ATTORNEY MONIK SILVESTRE M.D. Performed By: #### V [id number], TSH3, A1C WTH eA, DIFF CBC, [id number], LIPID, FE, CMP, T3F, T4T #### [facility] [address] [place] [address] #### INSULIN #### [facility] , Triiodothyronine (T3) Free [ Mass/volume] in Serum or PlasmaOrdered By: Sammie Gonzalez on 05-12-2024 Free T3 [Mass/Vol] 3.61 pg/mL 2.50-3.90 [facility] Urea nitrogen [Mass/volume] in Serum or PlasmaOrdered By: Sammie Gonzalez on 05-12-2024 Urea nitrogen [Mass/Vol] 20 mg/dL Normal 7-25 [facility] Comment on above: Order Comment: FASTI NG. JKW Performed By: #### V [id number], TSH3, A1C WTH eA, DIFF CBC, [id number], LIPID, FE, CMP, T3F, T4T #### [facility] [address] [place] [address] #### INSULIN #### [facility] , Vit. B12/Folate Profileon Folate 7.8 ng/mL Normal >5.9 [facility] Comment on above: Order Comment: PIPER SANTOS. JKW Result Comment: Jonna te reference range: >5.9 ng/ml The WHO technical consultation on folate and vitamin b12 deficiencies has determined that folate concentrations less than 4 ng/ml are considered deficient. Performed By: #### V [id number], TSH3, A1C WTH eA, DIFF CBC, [id number], LIPID, FE, CMP, T3F, T4T ####[place] [address] [place] [id number] [facility]#### INSULIN ####[facility] , Vitamin B12 ser/plasOrdered By: Sammie Gonzalez on 05-12-2024 Cobalamin (Vitamin B12) [Mass/Vol] 306 pg/mL Normal 180-914 [facility] Comment on above: Order Comment: PIPER FoleyKW Performed By: #### V [id number], TSH3, A1C WTH eA, DIFF CBC, [id number], LIPID, FE, CMP, T3F, T4T ####[place] [address] [address]#### INSULIN ####[facility] , Vitamin D 25 Hydroxy Totalon 05-12-2024 Vitamin D 25 Hydroxy Total 39.9 ng/mL Normal 30-100 [facility] Comment on above: Order Comment: PIPER SANTOS. JKW Result Comment: THERESE MIN D STATUS 25(OH)VITAMIN D RANGE (ng/mL) Deficient <20 Insufficient 20 to <30 Sufficient 30 to 100 Reference: Nain MF,Anum NC, Brynn APARICIO, et al. Evaluation,treatment, and prevention of vitamin D deficiency; an Endocrine Society clinical practice guideline. JCEM. 2010; 96(7):1911-30. PERFORMED BY: [facility] [address] [place] [id number] PATHOLOGIST COMPLIANCE ATTORNEY MONIK SILVESTRE M.D. Performed By: #### V [id number], TSH3, A1C WTH eA, DIFF CBC, [id number], LIPID, FE, CMP, T3F, T4T ####[place] [id number] [facility]#### INSULIN ####[facility] , Vitamin D+Metabolites [Mass/ volume] in Serum or PlasmaOrdered By: Sammie Gonzalez on 05-12-2024 Vitamin D+Metabolites [Mass/Vol] 39.9 ng/mL 30-100 [facility] Comment on above: VITAMIN D STATUS 25( OH)VITAMIN D RANGE (ng/mL) Deficient <20 Insufficient 20 to <30Sufficient 30 to 100Reference: Nain DANIELLE,Anum LAURA, Brynn APARICIO, et al. Evaluation,treatment, and prevention of vitamin D deficiency; an Endocrine Society clinical practice guideline. JCEM. 2010; 96(7):1911-30. Kathy 03-08-2024 CNPN Telephone (NSCAMN) KOURTNEY NOVAK ([id number]) 1975 F Date Time Provider Department 03/08/[address] [facility] During your visit today, we recorded the following information about you: Head, Sharonra 03/08/2024 1:49 PM Signed General Call Caller : Moira [facility] at [facility] Contact Reason for Call : Nurse [...] Erik Pineda (04/04/24). Mario Alberto Phillips RN, Photovoltaic Technician Mario Alberto Phillips RN 03/08/2024 2:42 PM Addendum ADDENDUM: March 08, 2024 2:39 PM Distance Health Visit on 02/02/2024 including the details for the patient's surgery was faxed to Moira DONOVAN ( [facility]) . Mario Alberto Shidiac RN, Photovoltaic Technician Allergies As of Date: 03/08/2024 (No Known Allergies) Date Reviewed: 02/05/2024 Reviewed by: Rachele Fenton APRN.DRIER AND GRINDER TENDER - Fully Assessed Reason for Visit: epidural [...] Status:Closed by MARIO ALBERTO PHILLIPS on 03/08/24 Normal [facility] US thyroidon 02-15-2024 US thyroid [facility] [place] [address] Ultrasound Report Signed Patient: Kourtney Novak MR#: [id number] : 1975 Acct:[id number] Age/Sex: 48 / F ADM Date: 02/15/24 Loc: Room: Type: [facility] Attending Dr: Sammie Gonzalez MD Ordering Provider: [...] George Gray M.D.02/15/2024 6:25 PM Dictation Location: [place] [address] Tech: Beti Young Transcribed By: [facility] 02/15/241824 Dictated By: George Gray DO 02/15/241821 Signed By: 02/15/241824 [facility] Kathy 02-10-2024 CNPN Telephone ([facility]) KOURTNEY NOVAK ([id number]) 1975 F Date Time Provider Department 02/10/24 RACHELE FENTON [facility] During your visit today, we recorded the following information about you: Gifty Dash 02/10/2024 3:20 PM Signed Prior Authorization for Medications Requested by ([facility], Pharmacy, Patient Call, Fax) : [facility] Name: [email or web address] Phone # : [phone] Name of Medication : Robaxin Dose : 500 mg Tablet If renewal, auth date expiration: NA Prescribing Provider: Eliceo Last OV: 02/05/2024 with Eliceo Insurance Provider : Medicare / [employer]. Is insurance card scanned in, including Rx info? Medicare card scanned - no RX information Insurance Phone : CoverMyMeds [place]: NA E-PA? Yes Allergies As of Date: 02/10/2024 (No Known Allergies) Date Reviewed: 02/05/2024 Reviewed by: Rachele Fenton APRN.DRIER AND GRINDER TENDER - Fully Assessed Reason for Visit: Insurance Authorization [[id number]] Robaxin PA - Medicare / [employer]. [Other] Prescriptions as of 03/14/2024 - nortriptyline [...] Status:Closed by TERRI GARCIA on 03/14/24 Normal [facility] MR cervical spine wo conon 0 02-09-2024 MR cervical spine wo con [facility] [place] [address] MRI Report Signed Patient: Kourtney Novak MR#: [id number] : 1975 Acct:[id number] Age/Sex: 48 / F ADM Date: 02/09/24 Loc: [facility] Room: Type: [facility] Attending Dr: Sammie Gonzalez MD Copies to: [...] Perry Milton M.D.02/09/2024 1:27 PM Dictation Location: [place] [address] Transcribed By: [facility] 02/09/24 1327 Dictated By: Perry Milton II, MD 02/09/24 1320 Signed By: 02/09/24 1327 [place] [facility] MR lumbar spine wo conon MR lumbar spine wo con [facility] [place] [address] MRI Report Signed Patient: Kourtney Novak MR#: [id number] : 1975 Acct:[id number] Age/Sex: 48 / F ADM Date: 02/09/24 [facility] Type[facility] Attending Dr: Sammie Gonzalez MD Copies to: [...] Perry Milton M.D.02/09/2024 1:35 PM Dictation Location: [place] [address] Transcribed By: [facility] 02/09/24 1335 Dictated By: Perry Milton II, MD 02/09/24 1331 Signed By: 02/09/24 1335 Normal [facility] XR pre/post mri xrayon 02-08 XR pre/post mri xray [facility] [place] [address] XRay Report Signed Patient: Kourtney Novak MR#: [id number] : 1975 Acct:[id number] Age/Sex: 48 / F ADM Date: 02/09/24 Loc: [facility] Room: Type: [facility] Attending Dr: Sammie Gonzalez MD Copies to: [...] may be positional or secondary muscle spasm. Osoe-vy-mdtghrgv degenerative changes are noted at C5-C6 and C6-C7 as above. Lumbar spine: There is a dextro convex curvature. No fracture or subluxation. Impression dictated by: Perry Milton M.D.02/09/2024 1:47 PM Dictation Location: [place] [address] Transcribed By: [facility] 02/09/24 134 Dictated By: Perry Milton II, MD 02/09/24 1343 Signed By: 02/09/24 1347 [facility]2024 [facility] Telephone ([facility]) KOURTNEY NOVAK ([id number]) 1975 F Date Time Provider Department 02/02/24 MARIO ALBERTO PHILLIPS [facility] During your visit today, we recorded the following information about you: Mario Alberto Phillips, VENUS 02/02/2024 10:24 AM Signed Called the patient [...] by MARIO ALBERTO PHILLIPS on 02/02/24 Normal [facility] CT BRAIN WO IVCONon 01-29-20 CT BRAIN WO IVCON * * *Final Report* * * DATE OF EXAM: Jan 29 2024 1:02PM [facility] 0504 - CT BRAIN WO IVCON [...] soft tissue component identified in the orbit. Word Processor Operator: PSCB Transcribe Date/Time: Jan 31 2024 3:33P Dictated by : NATIVIDAD PRIEST MD This examination was interpreted and the report reviewed and electronically signed by: NATIVIDAD PRIEST MD on Jan 31 2024 3:37PM EST [id number] Normal [facility] MRI SKULL BASE WO/W IVCONon 01-29-2024 MRI [...] tissue mass extending into the of the big data engineer or parapharyngeal spaces. The soft tissue planes of the, retropharyngeal, and prevertebral spaces are maintained. The visualized parotid glands are normal in appearance. Nasopharynx/Oropharyn x: The nasopharynx and oropharynx are normal in appearance. 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 Word Processor Operator: [facility] Transcribe Date/Time: Jan 31 2024 5:10P Dictated by : WESTLEY IYER MD This examination was interpreted and the report reviewed and electronically signed by: WESTLEY IYER MD on Jan 31 2024 5:28PM EST [id number] N [facility] 01-19-2024 CNPN Telephone ([facility]) KOURTNEY NOVAK ([id number]) 1975 F Date Time Provider Department 01/19/24 MARIO ALBERTO PHILLPIS NSC[facility]N During your visit today, we recorded the following information about you: Mario Alberto Phillips, VENUS 01/19/2024 9:36 AM Signed Spoke with Ms Kourtney Novak today confirming surgery on 04/11/[address] Erik Pineda. Right middle sphenoid wing Preoperative appointments will be scheduled ~ 2 weeks prior to surgery date at a F facility closer to the patient's home. Mario Alberto Phillips RN, Photovoltaic Technician Mario Alberto Phillips RN 01/19/2024 10:43 AM [...] by MARIO ALBERTO PHILLIPS on 01/19/24 Normal [facility] Alanine aminotransferase [En zymatic activity/volume] in Serum or PlasmaOrdered By: Zeinab Wood on 01-08-2024 ALT [Catalytic activity/Vol] 22 U/L Normal 7-52 [facility] Comment on above: Order Comment: PIPER ROBLERO Result Comment: PERF ORMED BY: [place] [address] PATHOLOGIST COMPLIANCE ATTORNEY MONIK SILVESTRE M.D. Performed By: #### C BC, AST, CREAT, ALT #### [address] Aspartate aminotransferase [ Enzymatic activity/volume] in Serum or PlasmaOrdered By: Zeinab Wood on 01-08-2024 AST [Catalytic activity/Vol] 16 U/L Normal 13-39 [facility] Comment on above: Order Comment: FASTI NG. JKW Performed By: #### C BC, AST, CREAT, ALT #### [address] Automated basophil %Ordered By: Zeinab Wood on 01-08-2024 Basophils/100 WBC (Bld) 1.1 % Normal . [facility] Comment on above: Order Comment: FASTI NG. JKW Performed By: #### C BC, AST, CREAT, ALT #### [address] Automated basophil countOrde red By: Zeinab Wood on 01-08-2024 Basophils (Bld) [#/Vol] 0.1 10*3/uL Normal 0.0-0.2 [facility] Comment on above: Order Comment: FASTI NG. JKW Result Comment: PERF ORMED BY: [place] [address] PATHOLOGIST COMPLIANCE ATTORNEY MONIK SILVESTRE M.D. Performed By: #### C BC, AST, CREAT, ALT #### [address] Automated blood monocyte cou ntOrdered By: Zeinab Wood on 01-08-2024 Monocytes (Bld) [#/Vol] 0.8 10*3/uL Normal 0.0-0.8 [facility] Comment on above: Order Comment: FASTI NG. JKW Performed By: #### C BC, AST, CREAT, ALT #### [address] Automated eosinophil %Ordere d By: Zeinab Wood on 01-08-2024 Eosinophils/100 WBC (Bld) 1.8 % Normal . [facility] Comment on above: Order Comment: FASTI NG. JKW Performed By: #### C BC, AST, CREAT, ALT #### [address] Automated eosinophil countOr dered By: Zeinab Wood on 01-08-2024 Eosinophils (Bld) [#/Vol] 0.1 10*3/uL Normal 0.0-0.45 [facility] Comment on above: Order Comment: FASTI NG. JKW Performed By: #### C BC, AST, CREAT, ALT #### [facility] [address] Automated monocyte %Ordered By: Zeinab Wood on 01-08-2024 Monocytes/100 WBC (Bld) 11.3 % Normal . [facility] Comment on above: Order Comment: FASTI NG. JKW Performed By: #### C BC, AST, CREAT, ALT #### [facility] [address] Automated neutrophil %Ordere d By: Zeinab Wood on 01-08-2024 Neutrophils/100 WBC (Bld) 56.5 % Normal . [facility] Comment on above: Order Comment: FASTI NG. JKW Performed By: #### C BC, AST, CREAT, ALT #### [facility] [address] [place] [address] CNPNon 01-08-2024 CNPN Telephone ([facility]) KOURTNEY NOVAK ([id number]) 1975 F Date Time Provider Department 01/08/24 ZEINAB WOOD During your visit today, we recorded the following information about you: Rohit Kaye MA 01/08/2024 3:19 PM Signed Lab results received from [facility]. Placed in dr Wood folder for review, [...] Status:Closed by ROHIT KAYE on 01/08/24 Normal [facility] Complete Blood Count Auto Di ffon 01-08-2024 Mean Corpuscular HGB Conc 33.4 g/dL Normal 32.0-35.0 [facility] Comment on above: Order Comment: FASTI NG. JKW Performed By: #### C BC, AST, CREAT, ALT #### [address] NRBC% 0.1 /100{WBC} Normal 0-0.5 [facility] Comment on above: Order Comment: FASTI NG. JKW Performed By: #### C BC, AST, CREAT, ALT #### [address] Creatinineon 01-08-2024 GFR/1.73 sq M.predicted MDRD (S/P/Bld) [Vol rate/Area] mL/min/{1.73_m2} Normal [facility] Comment on above: Order Comment: FASTI NG. JKW Performed By: #### C BC, AST, CREAT, ALT #### [address] Creatinine [Mass/volume] in Serum or PlasmaOrdered By: Zeinab Wood on 01-08-2024 Creatinine [Mass/Vol] 1.00 mg/dL Normal 0.60-1.20 [facility] Comment on above: Order Comment: FASTI NG. JKW Performed By: #### C BC, AST, CREAT, ALT #### [address] Erythrocyte distribution wid th [Ratio] by Automated countOrdered By: Zeinab Wood on 01-08-2024 Erythrocyte distribution width (RBC) [Ratio] 13.1 % Normal 11.9-15.3 [facility] Comment on above: Order Comment: FASTI NG. JKW Performed By: #### C BC, AST, CREAT, ALT #### [address] Erythrocytes [#/volume] in B lood by Automated countOrdered By: Zeinab Wood on 01-08-2024 RBC (Bld) [#/Vol] 4.29 10*6/uL Normal 3.60-5.00 [facility] Comment on above: Order Comment: FASTI NG. JKW Performed By: #### C BC, AST, CREAT, ALT #### [address] Hematocrit [Volume Fraction] of Blood by Automated countOrdered By: Zeinab Wood on 01-08-2024 Hematocrit (Bld) [Volume fraction] 39.2 % Normal 34.0-46.4 [facility] Comment on above: Order Comment: FASTI DANIELLE. JKW Performed By: #### C BC, AST, CREAT, ALT #### [address] Hemoglobin [Mass/volume] in BloodOrdered By: Zeinab Wood on 01-08-2024 Hemoglobin (Bld) [Mass/Vol] 13.1 g/dL Normal 11.8-15.4 [facility] Comment on above: Order Comment: FASTJimmy SANTOS. JKW Performed By: #### C BC, AST, CREAT, ALT #### [address] Leukocytes [#/volume] correc jana for nucleated erythrocytes in Blood by Automated counOrdered By: Zeinab Wood on 01-08-2024 WBC corrected for nucl RBC Auto (Bld) [#/Vol] 6.8 10*3/uL 3.8-11.6 [facility] Leukocytes [#/volume] in Blo od by Automated countOrdered By: Zeinab Wood on 01-08-2024 WBC (Bld) [#/Vol] 6.8 10*3/uL Normal 3.8-11.6 [facility] Comment on above: Order Comment: FASTI NG. JKW Performed By: #### C BC, AST, CREAT, ALT #### [address] Lymphocytes [#/volume] in Bl ood by Automated countOrdered By: Zeinab Wood on 01-08-2024 Lymphocytes (Bld) [#/Vol] 2.0 10*3/uL Normal 1.00-4.8 [facility] Comment on above: Order Comment: FASTI DANIELLE. JKW Performed By: #### C BC, AST, CREAT, ALT #### [facility] [address] [place] [address] Lymphocytes/100 leukocytes i n Blood by Automated countOrdered By: Zeinab Wood on 01-08-2024 Lymphocytes/100 WBC (Bld) 29.3 % Normal . [facility] Comment on above: Order Comment: FASTI DANIELLE. JKW Performed By: #### C BC, AST, CREAT, ALT #### [address] MCH [Entitic mass] by Automa jana countOrdered By: Zeinab Wood on 01-08-2024 MCH (RBC) [Entitic mass] 30.6 pg Normal 24.7-34.3 [facility] Comment on above: Order Comment: FASTI NG. JKW Performed By: #### C BC, AST, CREAT, ALT #### [address] MCHC Auto (RBC) [Mass/Vol]Or dered By: Zeinab Wood on 01-08-2024 MCHC (RBC) [Mass/Vol] 33.4 g/dL 32.0-35.0 [facility] MCV [Entitic volume] by Auto mated countOrdered By: Zeinab Wood on 01-08-2024 MCV (RBC) [Entitic vol] 91.5 fL Normal 80-100 [facility] Comment on above: Order Comment: FASTI NG. JKW Performed By: #### C BC, AST, CREAT, ALT #### [address] Neutrophils [#/volume] in Bl ood by Automated countOrdered By: Zeinab Wood on 01-08-2024 Neutrophils (Bld) [#/Vol] 3.9 10*3/uL Normal 1.8-7.7 [facility] Comment on above: Order Comment: FASTI NG. JKW Performed By: #### C BC, AST, CREAT, ALT #### [address] No Panel InformationOrdered By: Zeinab Wood on 01-08-2024 Estimated GFR (CKD-EPI) > 60.0 mL/Min [facility] Creatinine Clearance (Chem N/A [facility] Nucleated erythrocytes [Pres ence] in Blood by Automated countOrdered By: Zeinab Wood on 01-08-2024 Nucleated RBC Auto Ql (Bld) 0.1 /100{WBC} 0-0.5 [facility] Platelet mean volume [Entiti c volume] in Blood by Automated countOrdered By: Zeinab Wood on 01-08-2024 Platelet mean volume (Bld) [Entitic vol] 8.4 fL Normal 6.3-10.7 [facility] Comment on above: Order Comment: PIPER BOX JKW Performed By: #### C BC, AST, CREAT, ALT #### [facility] [address] [place] [address] Platelets [#/volume] in Bloo d by Automated countOrdered By: Zeinab Wood on 01-08-2024 Platelets (Bld) [#/Vol] 284 10*3/uL Normal 150-450 [facility] Comment on above: Order Comment: [address] JKW Performed By: #### C BC, AST, CREAT, ALT #### [facility] [address] [place] [address] CNPNon 01-05-2024 CNPN Telephone (NSCAMN) KOURTNEY NOVAK ([id number]) 1975 F Date Time Provider Department 01/05/24 MARIO ALBERTO PHILLIPS [facility] During your visit today, we recorded the following information about you: Mario Alberto Phillips, VENUS 01/05/2024 1:06 PM Signed Spoke with Ms. [...] Status:Closed by [facility] (RHEUAV) KOURTNEY NOVAK ([id number]) 1975 F Date Time Provider Department 01/04/24 ZEINAB WOOD [facility] During your visit today, we recorded the following information about you: Verenice Ga, RN 01/04/2024 1:47 PM Signed Patient calling Needs 01/01/24 Lab Orders in [facility] please (pended) Also requesting to FAX 01/01/24 Lab Orders to [facility] She will send their FAX # in My Chart Zeinab Wood MD 01/04/2024 2:03 PM Signed Labs are ordered, please print and fax per patient request. MD Jay Grace Laura, MA 01/04/2024 2:45 PM Signed Printed labs. Sent msg to pt to clarify which [facility] Lab to fax to. Labs/Fax sheet in Michelle's [facility] folder. Please fax once clarification is received. [...] Status:Closed by MICHELLE THOMPSON on 01/04/24 Normal [facility] Automated basophil %Ordered By: Sammie Gonzalez on 11-11-2023 Basophils/100 WBC (Bld) 1.0 % Normal . [facility] Comment on above: Performed By: #### F E, MARIELLA, CBC ####[facility] [id number] [place] [address] [facility] Automated basophil countOrde red By: Sammie Gonzalez on 11-11-2023 Basophils (Bld) [#/Vol] 0.1 10*3/uL Normal 0.0-0.2 [facility] Comment on above: Result Comment: PERF ORMED BY: [facility] [address] [place] [address] PATHOLOGIST COMPLIANCE ATTORNEY MONIK SILVESTRE M.D. Performed By: #### F E, MARIELLA, CBC ####[place] [id number] [address] Automated blood monocyte cou ntOrdered By: Sammie Janice on 11-11-2023 Monocytes (Bld) [#/Vol] 0.9 10*3/uL High 0.0-0.8 [facility] Comment on above: Performed By: #### F E, MARIELLA, CBC ####[address] Automated eosinophil %Ordere d By: Sammie Smithpiedad on 11-11-2023 Eosinophils/100 WBC (Bld) 1.3 % Normal . [facility] Comment on above: Performed By: #### F E, MARIELLA, CBC ####[address] Automated eosinophil countOr dered By: Sammie Smithpiedad on 11-11-2023 Eosinophils (Bld) [#/Vol] 0.1 10*3/uL Normal 0.0-0.45 [facility] Comment on above: Performed By: #### F E, MARIELLA, CBC ####[address] Automated monocyte %Ordered By: Sammie Hoy on 11-11-2023 Monocytes/100 WBC (Bld) 9.8 % Normal . [facility] Comment on above: Performed By: #### F E, MARIELLA, CBC ####[address] Automated neutrophil %Ordere d By: Sammie Smithpiedad on 11-11-2023 Neutrophils/100 WBC (Bld) 45.3 % Normal . [facility] Comment on above: Performed By: #### F E, MARIELLA, CBC ####[address] CNPNon 11-11-2023 CNPN Telephone (NSCAMN) KOURTNEY NOVAK ([id number]) 1975 F Date Time Provider Department 11/11/23 MARIO ALBERTO PHILLIPS [facility] During your visit today, we recorded the following information about you: Mario Alebrto Phillips, VENUS 11/11/2023 11:41 AM Signed Spoke with Ms.Mandie Alex Novak today following up on the [employer] message from 10/08/2023. She sent a message about having symptoms of blurry vision and was advised to schedule an appointment with ophthalmology. Today the patient stated that the blurry vision was 1 incident and that she did not have any vision changes since. She was made aware to send an update or call for any questions or concerns. Mario Alberto Phillips RN, Photovoltaic Technician Allergies As of Date: 11/11/2023 (No Known Allergies) Date Reviewed: 09/28/2023 Reviewed by: Michelle Thompson MA - Fully Assessed Reason for Visit: Care Coordination [7033] Cmt: follow up Prescriptions as of 11/11/2023 [...] by MARIO ALBERTO PHILLIPS on 11/11/23 Normal [facility] Complete Blood Count Auto Di ffon 11-11-2023 Mean Corpuscular HGB Conc 32.6 g/dL Normal 32.0-35.0 [facility] Comment on above: Performed By: #### F Jason, MARIELLA, CBC ####[place] [id number] [address] NRBC% 0.1 /100{WBC} Normal 0-0.5 [facility] Comment on above: Performed By: #### F E, MARIELLA, CBC ####[place] [id number] [place] [id number] [facility] Erythrocyte distribution wid th [Ratio] by Automated countOrdered By: Sammie Gonzalez on 11-11-2023 Erythrocyte distribution width (RBC) [Ratio] 13.3 % Normal 11.9-15.3 [facility] Comment on above: Performed By: #### F E, MARIELLA, CBC ####[place] [id number] [place] [id number] [facility] Erythrocytes [#/volume] in B lood by Automated countOrdered By: Sammie Gonzalez on 11-11-2023 RBC (Bld) [#/Vol] 4.34 10*6/uL Normal 3.60-5.00 [facility] Comment on above: Performed By: #### F E, MARIELLA, CBC ####[place] [id number] [facility] Ferritin [Mass/volume] in Se rum or PlasmaOrdered By: Sammie Gonzalez on 11-11-2023 Ferritin [Mass/Vol] 88.4 ng/mL Normal 11.0-306.8 [facility] Comment on above: Result Comment: PERF ORMED BY: [facility] [address] [place] [id number] PATHOLOGIST COMPLIANCE ATTORNEY MONIK SILVESTRE M.D. Performed By: #### F E, MARIELLA, CBC ####[place] [id number] [facility] Hematocrit [Volume Fraction] of Blood by Automated countOrdered By: Sammie Gonzalez on 11-11-2023 Hematocrit (Bld) [Volume fraction] 39.9 % Normal 34.0-46.4 [facility] Comment on above: Performed By: #### F Jason, MARIELLA, CBC ####[place] [id number] [facility] Hemoglobin [Mass/volume] in BloodOrdered By: Sammie Gonzalez on 11-11-2023 Hemoglobin (Bld) [Mass/Vol] 13.0 g/dL Normal 11.8-15.4 [facility] Comment on above: Performed By: #### F E, MARIELLA, CBC ####[place] [id number] [facility] Iron [Mass/volume] in Serum or PlasmaOrdered By: Sammie Gonzalez on 11-11-2023 Iron [Mass/Vol] 93 ug/dL Normal 50-212 [facility] Comment on above: Performed By: #### F E, MARIELLA, CBC ####[place] [id number] [facility] Leukocytes [#/volume] correc jana for nucleated erythrocytes in Blood by Automated counOrdered By: Sammie Gonzalez on 11-11-2023 WBC corrected for nucl RBC Auto (Bld) [#/Vol] 8.7 10*3/uL 3.8-11.6 [facility] Leukocytes [#/volume] in Blo od by Automated countOrdered By: Sammie Gonzalez on 11-11-2023 WBC (Bld) [#/Vol] 8.7 10*3/uL Normal 3.8-11.6 [facility] Comment on above: Performed By: #### F E, MARIELLA, CBC ####[address] Lymphocytes [#/volume] in Bl ood by Automated countOrdered By: Sammie Gonzalez on 11-11-2023 Lymphocytes (Bld) [#/Vol] 3.7 10*3/uL Normal 1.00-4.8 [facility] Comment on above: Performed By: #### F E, MARIELLA, CBC ####[address] Lymphocytes/100 leukocytes i n Blood by Automated countOrdered By: Sammie Gonzalez on 11-11-2023 Lymphocytes/100 WBC (Bld) 42.6 % Normal . [facility] Comment on above: Performed By: #### F E, MARIELLA, CBC ####[address] MCH [Entitic mass] by Automa jana countOrdered By: Sammie Gonzalez on 11-11-2023 MCH (RBC) [Entitic mass] 30.0 pg Normal 24.7-34.3 [facility] Comment on above: Performed By: #### F E, MARIELLA, CBC ####[place] [id number] [facility] MCHC Auto (RBC) [Mass/Vol]Or dered By: Sammie Gonzalez on 11-11-2023 MCHC (RBC) [Mass/Vol] 32.6 g/dL 32.0-35.0 [facility] MCV [Entitic volume] by Auto mated countOrdered By: Sammie Gonzalez on 11-11-2023 MCV (RBC) [Entitic vol] 92.1 fL Normal 80-100 [facility] Comment on above: Performed By: #### MARIELLA Mccormick, CBC ####[place] [phone] [address] Neutrophils [#/volume] in Bl ood by Automated countOrdered By: Sammie Gonzalez on 11-11-2023 Neutrophils (Bld) [#/Vol] 4.0 10*3/uL Normal 1.8-7.7 [facility] Comment on above: Performed By: #### F MARIELLA Gomez, CBC ####[address] Nucleated erythrocytes [Pres ence] in Blood by Automated countOrdered By: Sammie Gonzalez on 11-11-2023 Nucleated RBC Auto Ql (Bld) 0.1 /100{WBC} 0-0.5 [facility] Platelet mean volume [Entiti c volume] in Blood by Automated countOrdered By: Sammie Gonzalez on 11-11-2023 Platelet mean volume (Bld) [Entitic vol] 9.0 fL Normal 6.3-10.7 [facility] Comment on above: Performed By: #### MARIELLA Mccormick, CBC ####[address] Platelets [#/volume] in Bloo d by Automated countOrdered By: Sammie Gonzalez on 11-11-2023 Platelets (Bld) [#/Vol] 363 10*3/uL Normal 150-450 [facility] Comment on above: Performed By: #### MARIELLA Mccormick, CBC ####[place] [id number] [facility] CN[facility]on 09-28-2023 CNOV Office Visit (ISSA ) KOURTNEY NOVAK ([id number]) 1975 F Date Time Provider Department 09/28/23 [...] the axilla (more content not included)... [facility]) KOURTNEY NOVAK ([id number]) 1975 F Date Time Provider Department 07/02/23 ERIK PINEDA [facility] During your visit today, we recorded [...] the preoperative appointments. Mario Alberto Phillips RN, Photovoltaic Technician Allergies As of Date: 07/02/2023 (No Known Allergies) Date Reviewed: 06/30/2023 Reviewed by: Heather Moy APRN.DRIER AND GRINDER TENDER - Fully Assessed Reason for Visit: Patient [...] Status:Closed by MARIO ALBERTO PHILLIPS on 07/06/23 [facility] CNOVon 06-30-2023 CNOV Office Visit (NSCAMN ) KOURTNEY NOVAK ([id number]) 1975 F Date Time Provider Department 06/30/23 10:[address] [facility] During your visit today, we recorded the following information about you: Temperature Pulse Respiration Blood pressure 98.7 degrees 103/minute 18/minute 117/58 Weight Height 101.9 kg 1.64 m Erik Pineda MD 07/11/2023 2:03 PM Signed SECTION OF SKULL BASE SURGERY MINIMALLY INVASIVE CRANIAL BASE AND PITUITARY SURGERY PROGRAM [facility] [place], [facility] CC: Patient Care Team: Sammie Gonzalez MD as PCP - General (Family Medicine) Montse Lou DO - [facility] ASSESSMENT: In summary, Kourtney Novak is [...] and follow-up via virtual visit. Heather Moy APRN.DRIER AND GRINDER TENDER I have reviewed the progess note obtained [...] which included preparing to see the patient, [id number] patient care, completing clinical documentation, performing a medically appropriate examination, counseling and educating the patient/family/caregi karen, communicating with other HCPs, independently interpreting results and care coordination. Erik Pinead MD The patient is referred by Dr. [...] Complaint of headaches, follows with Dr. Fahad Corey (on Zanaflex AND Nortriptyline) No complaint of [...] Former Smo (more content not included)... Normal [facility] CNOVon 06-01-2023 CNOV Office Visit (NSCAMN ) KOURTNEY NOVAK ([id number]) 1975 F Date Time Provider Department 06/01/23 7:00 AM MONTSE LOU NSCAMN During your visit today, we recorded the following information about you: Temperature Pulse Respiration Blood pressure 99.3 degrees 93/minute 18/minute 116/54 Weight Height 101.9 kg 1.64 m Montse Lou DO, PhD 06/01/2023 9:24 AM Signed [facility] New Patient Consultation Referred by Sammie Gonzalez MD [address] [place] [phone] Diagnosis: Multiple meningioma's with interval growth since 2015. Subjective History of Present Illness: Kourtney Novak is a 47 year old right handed female referred to [facility] by her PCP due to interval growth of known meningioma's since 2015. She started noticing imbalance a few months ago, leaning and veering to her right. She takes Depo shot per NON DESTRUCTIVE TESTING SPECIALIST. 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 She lives in [place]. Interval History: 06/01/2023: Patient presents to establish care with [facility] and to discuss treatment [...] cataracts, H (more content not included)... Normal [facility] Alanine aminotransferase [En zymatic activity/volume] in Serum or PlasmaOrdered By: Sammie Gonzalez on 05-22-2023 ALT [Catalytic activity/Vol] 14 U/L 7-52 [facility] Albumin [Mass/volume] in Ser um or Plasma by Bromocresol green (BCG) dye binding methoOrdered By: Sammie Gonzalez on 05-22-2023 Albumin BCG dye [Mass/Vol] 4.1 g/dL 3.5-5.7 [facility] Alkaline phosphatase [Enzyma tic activity/volume] in Serum or PlasmaOrdered By: Sammie Gonzalez on 05-22-2023 ALP [Catalytic activity/Vol] 45 U/L 34-104 [facility] Aspartate aminotransferase [ Enzymatic activity/volume] in Serum or PlasmaOrdered By: Sammie Gonzalez on 05-22-2023 AST [Catalytic activity/Vol] 12 U/L 13-39 [facility] Basophils Auto (Bld) [#/Vol] Ordered By: Sammie Gonzalez on 05-22-2023 Basophils (Bld) [#/Vol] 0.1 10*3/uL 0.0-0.2 [facility] Basophils/100 WBC Auto (Bld) Ordered By: Sammie Gonzalez on 05-22-2023 Basophils/100 WBC (Bld) 0.9 % . [facility] Bilirubin.total [Mass/volume ] in Serum or PlasmaOrdered By: Sammie Gonzalez on 05-22-2023 Bilirubin [Mass/Vol] 0.3 mg/dL 0.3-1.0 [facility] Calcium [Mass/volume] in Ser um or PlasmaOrdered By: Sammie Gonzalez on 05-22-2023 Calcium [Mass/Vol] 9.5 mg/dL 8.6-10.3 [facility] Carbon dioxide, total [Moles /volume] in Serum or PlasmaOrdered By: Sammie Gonzalez on 05-22-2023 CO2 [Moles/Vol] 25.4 mmol/L 21.0-31.0 [facility] Chloride [Moles/volume] in S micki or PlasmaOrdered By: Sammie Gonzalez on 05-22-2023 Chloride [Moles/Vol] 106 mmol/L 98-107 [facility] Cholesterol [Mass/volume] in Serum or PlasmaOrdered By: Sammie Gonzalez on 05-22-2023 Cholesterol [Mass/Vol] 182 mg/dL 140-200 [facility] Comment on above: Chol less than 200 m g/dl low riskChol 201-239 mg/dl borderline riskChol 240 mg/dl and greater high risk Cholesterol in LDL Calc [Mas s/Vol]Ordered By: Sammie Gonzalez on 05-22-2023 Cholesterol in LDL [Mass/Vol] 58 mg/dL 0-100 [facility] Comment on above: LDL ATP III CLASSIFI CATIONLDL less than 100 mg/dL OptimalLDL 100-129 mg/dL Near or above optimalLDL 130-159 mg/dL Borderline highLDL 160-189 mg/dL HighLDL greater than 189 mg/dL Very high Cholesterol in VLDL Calc [Ma ss/Vol]Ordered By: Sammie Gonzalez on 05-22-2023 Cholesterol in VLDL [Mass/Vol] 44 mg/dL [facility] Creatinine [Mass/volume] in Serum or PlasmaOrdered By: Sammie Gonzalez on 05-22-2023 Creatinine [Mass/Vol] 0.89 mg/dL 0.60-1.20 [facility] Eosinophils Auto (Bld) [#/Vo l]Ordered By: Sammie Gonzalez on 05-22-2023 Eosinophils (Bld) [#/Vol] 0.1 10*3/uL 0.0-0.45 [facility] Eosinophils/100 WBC Auto (Bl d)Ordered By: Sammie Gonzalez on 05-22-2023 Eosinophils/100 WBC (Bld) 1.3 % . [facility] Erythrocyte distribution wid th Auto (RBC) [Ratio]Ordered By: Sammie Gonzalez on 05-22-2023 Erythrocyte distribution width (RBC) [Ratio] 20.4 % 11.9-15.3 [facility] Ferritin [Mass/volume] in Se rum or PlasmaOrdered By: Sammie Gonzalez on 05-22-2023 Ferritin [Mass/Vol] 147.2 ng/mL 11.0-306.8 [facility] Globulin Calc (S) [Mass/Vol] Ordered By: Sammie Gonzalez on 05-22-2023 Globulin (S) [Mass/Vol] 1.8 g/dL [facility] Glucose [Mass/volume] in Ser um or PlasmaOrdered By: Sammie Gonzalez on 05-22-2023 Glucose [Mass/Vol] 88 mg/dL 70-100 [facility] Comment on above: ADA recommended refe [...] from glycated hemoglobin (Bld) [Mass/Vol] 105 mg/dL [facility] Hematocrit Auto (Bld) [Volum e fraction]Ordered By: Sammie Gonzalez on 05-22-2023 Hematocrit (Bld) [Volume fraction] 37.0 % 34.0-46.4 [facility] Hemoglobin A1c percentageOrd ered By: Sammie Gonzalez on 09-08-2023 HbA1c (Bld) [Mass fraction] 5.3 % 4.3-5.6 [facility] Comment on above: Increased risk for d iabetes: 5.7 - 6.4diabetes: >6.4glycemic control for adults with diabetes: <7.0 Hemoglobin [Mass/volume] in BloodOrdered By: Sammie Gonzalez on 05-22-2023 Hemoglobin (Bld) [Mass/Vol] 11.9 g/dL 11.8-15.4 [facility] Iron [Mass/volume] in Serum or PlasmaOrdered By: Sammie Gonzalez on 05-22-2023 Iron [Mass/Vol] 57 ug/dL 50-212 [facility] Leukocytes [#/volume] correc jana for nucleated erythrocytes in Blood by Automated counOrdered By: Sammie Gonzalez on 05-22-2023 WBC corrected for nucl RBC Auto (Bld) [#/Vol] 9.6 10*3/uL 3.8-11.6 [facility] Lymphocytes Auto (Bld) [#/Vo l]Ordered By: Sammie Gonzalez on 05-22-2023 Lymphocytes (Bld) [#/Vol] 2.2 10*3/uL 1.00-4.8 [facility] Lymphocytes/100 WBC Auto (Bl d)Ordered By: Sammie Gonzalez on 05-22-2023 Lymphocytes/100 WBC (Bld) 22.5 % . [facility] MCH Auto (RBC) [Entitic mass ]Ordered By: Sammie Gonzalez on 05-22-2023 MCH (RBC) [Entitic mass] 27.7 pg 24.7-34.3 [facility] MCHC Auto (RBC) [Mass/Vol]Or dered By: Sammie Gonzalez on 05-22-2023 MCHC (RBC) [Mass/Vol] 32.2 g/dL 32.0-35.0 [facility] MCV Auto (RBC) [Entitic vol] Ordered By: Sammie Gonzalez on 05-22-2023 MCV (RBC) [Entitic vol] 85.8 fL 80-100 [facility] Monocytes Auto (Bld) [#/Vol] Ordered By: Sammie Gonzalez on 05-22-2023 Monocytes (Bld) [#/Vol] 1.0 10*3/uL 0.0-0.8 [facility] Monocytes/100 WBC Auto (Bld) Ordered By: Sammie Gonzalez on 05-22-2023 Monocytes/100 WBC (Bld) 9.9 % . [facility] Neutrophils Auto (Bld) [#/Vo l]Ordered By: Sammie Gonzalez on 05-22-2023 Neutrophils (Bld) [#/Vol] 6.3 10*3/uL 1.8-7.7 [facility] Neutrophils/100 WBC Auto (Bl d)Ordered By: Sammie Gonzalez on 05-22-2023 Neutrophils/100 WBC (Bld) 65.4 % . [facility] No Panel InformationOrdered By: Sammie Gonzalez on 05-22-2023 Estimated GFR (CKD-EPI) > 60.0 mL/Min [facility] Creatinine Clearance (Chem N/A [facility] Nucleated erythrocytes [Pres ence] in Blood by Automated countOrdered By: Sammie Gonzalez on 05-22-2023 Nucleated RBC Auto Ql (Bld) 0.1 /100{WBC} 0-0.5 [facility] Platelet mean volume Auto (B ld) [Entitic vol]Ordered By: Sammie Gonzalez on 05-22-2023 Platelet mean volume (Bld) [Entitic vol] 9.0 fL 6.3-10.7 [facility] Platelets Auto (Bld) [#/Vol] Ordered By: Sammie Gonzalez on 05-22-2023 Platelets (Bld) [#/Vol] 339 10*3/uL 150-450 [facility] Potassium [Moles/volume] in Serum or PlasmaOrdered By: Sammie Gonzalez on 05-22-2023 Potassium [Moles/Vol] 3.9 mmol/L 3.5-5.1 [facility] Protein [Mass/volume] in Ser um or PlasmaOrdered By: Sammie Gonzalez on 05-22-2023 Protein [Mass/Vol] 5.9 g/dL 6.4-8.9 [facility] RBC Auto (Bld) [#/Vol]Ordere d By: Sammie Gonzalez on 05-22-2023 RBC (Bld) [#/Vol] 4.31 10*6/uL 3.60-5.00 [facility] Serum or plasma albumin/glob ulin mass ratioOrdered By: Sammie Gonzalez on 05-22-2023 Albumin/Globulin [Mass ratio] 2.3 {ratio} [facility] Serum or plasma anion gap de terminationOrdered By: Sammie Gonzalez on 05-22-2023 Anion gap [Moles/Vol] 10.5 mmol/L 6.0-15.0 [facility] Serum or plasma high density lipoprotein (HDL) cholesterol measurementOrdered By: Sammie Gonzalez on 05-22-2023 Cholesterol in HDL [Mass/Vol] 79 mg/dL 23-92 [facility] Comment on above: HDL CHOL ATP-III CLA SSIFICATION Cardiovascular RiskHDL > or equal to 60 mg/dL LOWHDL < 40 mg/dL HIGH Serum or plasma total choles terol/high density lipoprotein (HDL) cholesterol mass ratOrdered By: Sammie Gonzalez on 05-22-2023 Cholesterol.total/Tali sterol in HDL [Mass ratio] 2.3 {ratio} <5.0 [facility] Sodium [Moles/volume] in Ser um or PlasmaOrdered By: Sammie Gonzalez on 05-22-2023 Sodium [Moles/Vol] 138 mmol/L 136-145 [facility] Thyrotropin [Units/volume] i n Serum or PlasmaOrdered By: Sammie Gonzalez on 05-22-2023 TSH Qn 3.27 m[IU]/L 0.45-5.33 [facility] Thyroxine (T4) free [Mass/vo lume] in Serum or PlasmaOrdered By: Sammie Gonzalez on 05-22-2023 Free T4 [Mass/Vol] 0.91 ng/dL 0.61-1.12 [facility] Triglyceride [Mass/volume] i n Serum or PlasmaOrdered By: Sammie Gonzalez on 05-22-2023 Triglyceride [Mass/Vol] 223 mg/dL 0-149 [facility] Comment on above: TRIG ATP III CLASSIF ICATIONTRIG less than 150 mg/dL NormalTRIG 150-199 mg/dL Borderline highTRIG 200-500 mg/dL High TRIG greater than 500 mg/dL Very highStandard traceable to the Center for Disease Conrtrol and Prevention (CDC) test method. Urea nitrogen [Mass/volume] in Serum or PlasmaOrdered By: Sammie Gonzalez on 05-22-2023 Urea nitrogen [Mass/Vol] 10 mg/dL 7-25 [facility] WBC Auto (Bld) [#/Vol]Ordere d By: Sammie Gonzalez on 05-22-2023 WBC (Bld) [#/Vol] 9.6 10*3/uL 3.8-11.6 [facility] Basophils Auto (Bld) [#/Vol] Ordered By: Sammie Gonzalez on 04-15-2023 Basophils (Bld) [#/Vol] 0.1 10*3/uL 0.0-0.2 [facility] Basophils/100 WBC Auto (Bld) Ordered By: Sammie Gonzalez on 04-15-2023 Basophils/100 WBC (Bld) 0.8 % . [facility] Eosinophils Auto (Bld) [#/Vo l]Ordered By: Sammie Gonzalez on 04-15-2023 Eosinophils (Bld) [#/Vol] 0.1 10*3/uL 0.0-0.45 [facility] Eosinophils/100 WBC Auto (Bl d)Ordered By: Sammie Gonzalez on 04-15-2023 Eosinophils/100 WBC (Bld) 1.3 % . [facility] Erythrocyte distribution wid th Auto (RBC) [Ratio]Ordered By: Sammie Gonzalez on 04-15-2023 Erythrocyte distribution width (RBC) [Ratio] 15.8 % 11.9-15.3 [facility] Ferritin [Mass/volume] in Se rum or PlasmaOrdered By: Sammie Gonzalez on 04-15-2023 Ferritin [Mass/Vol] 5.1 ng/mL 11.0-306.8 [facility] Hematocrit Auto (Bld) [Volum e fraction]Ordered By: Sammie Gonzalez on 04-15-2023 Hematocrit (Bld) [Volume fraction] 35.0 % 34.0-46.4 [facility] Hemoglobin [Mass/volume] in BloodOrdered By: Sammie Gonzalez on 04-15-2023 Hemoglobin (Bld) [Mass/Vol] 11.2 g/dL 11.8-15.4 [facility] Iron [Mass/volume] in Serum or PlasmaOrdered By: Sammie Gonzalez on 04-15-2023 Iron [Mass/Vol] 18 ug/dL 50-212 [facility] Leukocytes [#/volume] correc jana for nucleated erythrocytes in Blood by Automated counOrdered By: Sammie Gonzalez on 04-15-2023 WBC corrected for nucl RBC Auto (Bld) [#/Vol] 9.6 10*3/uL 3.8-11.6 [facility] Lymphocytes Auto (Bld) [#/Vo l]Ordered By: Sammie Gonzalez on 04-15-2023 Lymphocytes (Bld) [#/Vol] 2.2 10*3/uL 1.00-4.8 [facility] Lymphocytes/100 WBC Auto (Bl d)Ordered By: Sammie Gonzalez on 04-15-2023 Lymphocytes/100 WBC (Bld) 23.3 % . [facility] MCH Auto (RBC) [Entitic mass ]Ordered By: Sammie Gonzalez on 04-15-2023 MCH (RBC) [Entitic mass] 26.0 pg 24.7-34.3 [facility] MCHC Auto (RBC) [Mass/Vol]Or dered By: Sammie Gonzalez on 04-15-2023 MCHC (RBC) [Mass/Vol] 32.0 g/dL 32.0-35.0 [facility] MCV Auto (RBC) [Entitic vol] Ordered By: Sammie Gonzalez on 04-15-2023 MCV (RBC) [Entitic vol] 81.2 fL 80-100 [facility] Monocytes Auto (Bld) [#/Vol] Ordered By: Sammie Gonzalez on 04-15-2023 Monocytes (Bld) [#/Vol] 0.7 10*3/uL 0.0-0.8 [facility] Monocytes/100 WBC Auto (Bld) Ordered By: Sammie Gonzalez on 04-15-2023 Monocytes/100 WBC (Bld) 7.7 % . [facility] Neutrophils Auto (Bld) [#/Vo l]Ordered By: Sammie Gonzalez on 04-15-2023 Neutrophils (Bld) [#/Vol] 6.4 10*3/uL 1.8-7.7 [facility] Neutrophils/100 WBC Auto (Bl d)Ordered By: Sammie Janice on 04-15-2023 Neutrophils/100 WBC (Bld) 66.9 % . [facility] Nucleated erythrocytes [Pres ence] in Blood by Automated countOrdered By: Sammie Gonzalez on 04-15-2023 Nucleated RBC Auto Ql (Bld) 0.4 /100{WBC} 0-0.5 [facility] Platelet mean volume Auto (B ld) [Entitic vol]Ordered By: Sammie Gonzalez on 04-15-2023 Platelet mean volume (Bld) [Entitic vol] 9.1 fL 6.3-10.7 [facility] Platelets Auto (Bld) [#/Vol] Ordered By: Sammie Gonzalez on 04-15-2023 Platelets (Bld) [#/Vol] 427 10*3/uL 150-450 [facility] RBC Auto (Bld) [#/Vol]Ordere d By: Sammie Gonzalez on 04-15-2023 RBC (Bld) [#/Vol] 4.31 10*6/uL 3.60-5.00 [facility] WBC Auto (Bld) [#/Vol]Ordere d By: Sammie Gonzalez on 04-15-2023 WBC (Bld) [#/Vol] 9.6 10*3/uL 3.8-11.6 [facility] BNPon 10-11-2022 Natriuretic peptide B (Bld) [Mass/Vol] 173.0 pg/mL Normal <=450.0 [facility] Comment on above: Performed By: #### L ACT #### [facility] [address] [address] [address] Ko Durbin CBC W MANUAL DIFFon 10-11-19 23 ATYPICAL LYMPH # 0.18 103/ul Normal [facility] Comment on above: Performed By: #### C BCMAN #### [facility] [address] [address] [address] Ko Durbin ATYPICAL LYMPH % 2 % Normal [facility] Comment on above: Performed By: #### C BCMAN #### [facility] [address] [place] [address] Dr. Ko Durbin BAND # 0.0 103/ul Normal 0.0-0.3 [facility] Comment on above: Performed By: #### C BCMAN #### [facility] [address] [place] [address] Dr. Ko Durbin BAND % 0 % Normal 0-5 [facility] Comment on above: Performed By: #### C BCMAN #### [facility] [address] [place] [address] Dr. Ko Durbin BASOM # 0.00 103/ul Normal 0.00-0.10 [facility] Comment on above: Performed By: #### C BCMAN #### [facility] [address] [place] [address] Dr. Ko Durbin BASOM % 0.0 % Critically low 0.2-2.[address] [facility] Comment on above: Performed By: #### C BCMAN #### [facility] [address] [place] [address] Dr. Ko Durbin BLAST # Normal [facility] Comment on above: Performed By: #### C BCMAN #### [facility] [address] [place] [address] Dr. Ko Durbin BLAST % Normal [facility] Comment on above: Performed By: #### C BCMAN #### [facility] [address] [place] [address] Dr. Ko Durbin CORRECTED WBC Normal 4.0-11.0 [facility] Comment on above: Performed By: #### C BCMAN #### [facility] [address] [place] [address] Dr. Ko Durbin EOS # 0.00 103/ul Normal 0.00-0.70 [facility] Comment on above: Performed By: #### C BCMAN #### [facility] [address] [place] [address] Dr. Ko Durbin EOS% 0.0 % Critically low 0.9-7.[address] [facility] Comment on above: Performed By: #### C MARSHA #### [facility] [address] [place] [address] Dr. Ko Durbin HCT 32.8 % Critically low 36.0-48.[address] [facility] Comment on above: Performed By: #### C MARSHA #### [facility] [address] [place] [address] Dr. Ko Durbin HGB 11.1 g/dl Critically low 12.0-16.[address] [facility] Comment on above: Performed By: #### C MARSHA #### [facility] [address] [place] [address] Dr. Ko Durbin LYMPHM # 0.18 103/ul Critically low 1.20-3.80 [facility] Comment on above: Performed By: #### Ryan LARSON #### [facility] [address] [place] [address] Dr. Ko Durbin LYMPHM% 2.0 % Critically low 20.5-60.[address] [facility] Comment on above: Performed By: #### C MARSHA #### [facility] [address] [place] [address] Dr. Ko Durbin MCH 27.7 pg Normal 26.7-34.0 [facility] Comment on above: Performed By: #### C MARSHA #### [facility] [address] [place] [address] Dr. Ko Durbin MCHC 33.8 g/dl Normal 29.9-35.2 [facility] Comment on above: Performed By: #### C MARSHA #### [facility] [address] [place] [address] Dr. Ko Durbin MCV 81.8 fL Normal 81.0-99.0 [facility] Comment on above: Performed By: #### C MARSHA #### [facility] [address] [place] [address] Dr. Ko Durbin METAMYELOCYTE # Normal [facility] Comment on above: Performed By: #### C MARSHA #### [facility] [address] [address] [address] Ko Durbin METAMYELOCYTE % Normal [facility] Comment on above: Performed By: #### C MARSHA #### [facility] [address] [place] [address] Dr. Ko Durbin MONOM# 0.09 103/ul Critically low 0.30-0.80 [facility] Comment on above: Performed By: #### C MARSHA #### [facility] [address] [place] [address] Dr. Ko Durbin MONOM% 1.0 % Critically low 1.7-12.[address] [facility] Comment on above: Performed By: #### C MARSHA #### [facility] [address] [place] [address] Dr. Ko Durbin MPV 9.8 fL Normal 9.5-13.5 [facility] Comment on above: Performed By: #### C MARSHA #### [facility] [address] [place] [address] Dr. Ko Durbin MYELOCYTE # Normal [facility] Comment on above: Performed By: #### C MARSHA #### [facility] [address] [place] [address] Dr. Ko Durbin MYELOCYTE % Normal [facility] Comment on above: Performed By: #### C MARSHA #### [facility] [address] [place] [address] Dr. Ko Durbin NRBC Normal [facility] Comment on above: Performed By: #### C MARSHA #### [facility] [address] [place] [address] Dr. Ko Durbin PLT 375 103/ul Normal 150-450 [facility] Comment on above: Performed By: #### C MARSHA #### [facility] [address] [place] [address] Dr. Ko Durbin RBC 4.01 106/ul Critically low 4.20-5.40 [facility] Comment on above: Performed By: #### C MARSHA #### [facility] [address] [address] [address] Ko Durbin RDW 13.5 % Normal 11.0-15.0 [facility] Comment on above: Performed By: #### C MARSHA #### [facility] [address] [address] [address] Ko Durbin SEG # 8.55 103/ul Critically high 1.40-6.50 [facility] Comment on above: Performed By: #### C VAUGHNMAN #### [facility] [address] [address] [address] Ko Durbin SEG % 95.0 % Critically high 43.0-75.0 [facility] Comment on above: Performed By: #### C MARSHA #### [facility] [address] [address] [address] Ko Durbin WBC 9.0 103/ul Normal 4.0-11.0 [facility] Comment on above: Performed By: #### C MARSHA #### [facility] [address] [address] [address] Ko Durbin POINT OF CARE GLUCOSEon 09-15 Glucose [Mass/Vol] 98 mg/dL Normal 74-106 [facility] Comment on above: Performed By: #### L ACT #### [facility] [address] [address] [address] Ko Durbin Glucose [Mass/Vol] 158 mg/dL Critically high 74-106 [facility] Comment on above: Performed By: #### P OCGLUC #### [facility] [address] [address] [address] Ko Durbin PROF 14(COMP METB)on 023 Albumin [Mass/Vol] 3.7 g/dL Normal 3.4-5.0 [facility] Comment on above: Performed By: #### L ACT #### [facility] [address] [address] [address] Ko Durbin Albumin/Globulin [Mass ratio] 1.2 {ratio} Normal [facility] Comment on above: Performed By: #### L ACT #### [facility] [address] [address] [address] Ko Durbin ALP [Catalytic activity/Vol] 42 U/L Critically low 46-116 [facility] Comment on above: Performed By: #### L ACT #### [facility] [address] [place] [address] Dr. Ko Durbin ALT [Catalytic activity/Vol] 30 U/L Normal 14-59 [facility] Comment on above: Performed By: #### L ACT #### [facility] [address] [address] [address] Ko Durbin Anion gap [Moles/Vol] 17.1 mmol/L Normal [facility] Comment on above: Performed By: #### L ACT #### [facility] [address] [place] [address] Dr. Ko Durbin AST [Catalytic activity/Vol] 15 U/L Normal 15-37 [facility] Comment on above: Performed By: #### L ACT #### [facility] [address] [place] [address] Dr. Ko Durbin Bilirubin [Mass/Vol] 0.2 mg/dL Normal 0.2-1.0 [facility] Comment on above: Performed By: #### L ACT #### [facility] [address] [place] [address] Dr. Ko Durbin Calcium [Mass/Vol] 9.6 mg/dL Normal 8.5-10.1 [facility] Comment on above: Performed By: #### L ACT #### [facility] [address] [place] [address] Dr. Ko Durbin Chloride [Moles/Vol] 100 mmol/L Normal 98-107 [facility] Comment on above: Performed By: #### L ACT #### [facility] [address] [place] [address] Dr. Ko Durbin CO2 [Moles/Vol] 22.3 mmol/L Normal 21.0-32.0 [facility] Comment on above: Performed By: #### L ACT #### [facility] [address] [place] [address] Dr. Ko Durbin Creatinine [Mass/Vol] 1.10 mg/dL Critically high 0.55-1.02 [facility] Comment on above: Performed By: #### L ACT #### [facility] [address] [address] [address] Ko Durbin EGFR-AF BELIZEAN >60 Normal >=60 [facility] Comment on above: Performed By: #### L ACT #### [facility] [address] [address] [address] Ko Durbin EGFR-NON AF BELIZEAN 54 mL/min/1.73m2 Critically low >=60 [facility] Comment on above: Performed By: #### L ACT #### [facility] [address] [address] [address] Ko Durbin Globulin (S) [Mass/Vol] 3.1 g/dL Normal [facility] Comment on above: Performed By: #### L ACT #### [facility] [address] [address] [address] Ko Durbin Glucose [Mass/Vol] 180 mg/dL Critically high 74-106 [facility] Comment on above: Performed By: #### L ACT #### [facility] [address] [address] [address] Ko Durbin Potassium [Moles/Vol] 3.4 mmol/L Critically low 3.5-5.1 [facility] Comment on above: Performed By: #### L ACT #### [facility] [address] [address] [address] Ko Durbin Protein [Mass/Vol] 6.8 g/dL Normal 6.4-8.2 [facility] Comment on above: Performed By: #### L ACT #### [facility] [address] [address] [address] Ko Durbin Sodium [Moles/Vol] 136 mmol/L Normal 136-145 [facility] Comment on above: Performed By: #### L ACT #### [facility] [address] [address] [address] Ko Durbin Urea nitrogen [Mass/Vol] 19.0 mg/dL Critically high 7.0-18.0 [facility] Comment on above: Performed By: #### L ACT #### [facility] [address] [place] [address] Dr. Ko Durbin Urea nitrogen/Creatinine [Mass ratio] 17.3 mg/mg Normal [facility] Comment on above: Performed By: #### L ACT #### [facility] [address] [place] [address] Dr. Ko Durbin BNPon 10-10-2022 Natriuretic peptide B (Bld) [Mass/Vol] 291.0 pg/mL Normal <=450.0 [facility] Comment on above: Performed By: #### C MP, CMADM, BNP #### [facility] [address] [place] [address] Dr. Ko Durbin CARDIAC PERRY ADMITon 023 CK [Catalytic activity/Vol] 286 U/L Critically high 26-192 [facility] Comment on above: Performed By: #### C MP, CMADM, BNP #### [facility] [address] [place] [address] Dr. Ko Durbin CK.MB [Mass/Vol] 4.51 ng/mL Critically high <=3.60 [facility] Comment on above: Performed By: #### C MP, CMADM, BNP #### [facility] [address] [place] [address] Dr. Ko Durbin HSTROP 5.0 pg/mL Normal 4.0-51.3 [facility] Comment on above: Result Comment: CUT- OFF POINTS HAVE BEEN ESTABLISHED BASED ON THE FOURTH UNIVERSAL DEFINITIONS OF MYOCARDIAL INFARCTION. THE UPPER REFERENCE LIMIT (URL) OF TROPONIN, DEFINED THE 99TH PERCENTILE OF cTnI DISTRIBUTION IN A REFERENCE POPULATION, HAS BEEN CONFIRMED THE DECISION THRESHOLD FOR IA DIAGNOSIS. Performed By: #### C MP, CMADM, BNP #### [facility] [address] [place] [address] Dr. Ko Durbin JAROD 184 ng/mL Critically high 9-82 [facility] Comment on above: Performed By: #### C MP, CMADM, BNP #### [facility] [address] [address] [address] Ko Durbin CBC AUTO DIFFon 10-10-2022 BASO # 0.0 103/ul Normal 0.0-0.1 [facility] Comment on above: Performed By: #### C BC #### [facility] [address] [address] [address] Ko Durbin Basophils/100 WBC (Bld) 0.2 % Normal 0.2-2.0 [facility] Comment on above: Performed By: #### C BC #### [facility] [address] [place] [address] Dr. Ko Durbin EO # 0.0 103/ul Normal 0.0-0.7 [facility] Comment on above: Performed By: #### C BC #### [facility] [address] [place] [address] Dr. Ko Durbin Eosinophils/100 WBC (Bld) 0.0 % Critically low 0.9-7.0 [facility] Comment on above: Performed By: #### C BC #### [facility] [address] [place] [address] Dr. Ko Durbin Erythrocyte distribution width (RBC) [Ratio] 13.7 % Normal 11.0-15.0 [facility] Comment on above: Performed By: #### C BC #### [facility] [address] [place] [address] Dr. Ko Durbin Hematocrit (Bld) [Volume fraction] 31.8 % Critically low 36.0-48.0 [facility] Comment on above: Performed By: #### C BC #### [facility] [address] [place] [address] Dr. Ko Durbin Hemoglobin (Bld) [Mass/Vol] 11.1 g/dL Critically low 12.0-16.0 [facility] Comment on above: Performed By: #### C BC #### [facility] [address] [place] [address] Dr. Ko Durbin IG # 0.11 10e3/ul Critically high 0.00-0.03 [facility] Comment on above: Performed By: #### C BC #### [facility] [address] [place] [address] Dr. Ko Durbin IG % 1.0 % Critically high 0.0-0.5 [facility] Comment on above: Performed By: #### C BC #### [facility] [address] [place] [address] Dr. Ko Durbin LYMPH # 1.8 103/ul Normal 1.2-3.8 [facility] Comment on above: Performed By: #### C BC #### [facility] [address] [place] [address] Dr. Ko Durbin Lymphocytes/100 WBC (Bld) 16.2 % Critically low 20.5-60.0 [facility] Comment on above: Performed By: #### C BC #### [facility] [address] [place] [address] Dr. Ko Durbin MANUAL DIFF REQ NO Normal [facility] Comment on above: Performed By: #### C BC #### [facility] [address] [place] [address] Dr. Ko Durbin MCH (RBC) [Entitic mass] 28.2 pg Normal 26.7-34.0 [facility] Comment on above: Performed By: #### C BC #### [facility] [address] [place] [address] Dr. Ko Durbin MCHC (RBC) [Mass/Vol] 34.9 g/dL Normal 29.9-35.2 [facility] Comment on above: Performed By: #### C BC #### [facility] [address] [place] [address] Dr. Ko Durbin MCV (RBC) [Entitic vol] 80.7 fL Critically low 81.0-99. 0 [facility] Comment on above: Performed By: #### C BC #### [facility] [address] [place] [address] Dr. Ko Durbin MONO # 0.7 103/ul Normal 0.3-0.8 [facility] Comment on above: Performed By: #### C BC #### [facility] [address] [place] [address] Dr. Ko Durbin Monocytes/100 WBC (Bld) 6.3 % Normal 1.7-12.0 [facility] Comment on above: Performed By: #### C BC #### [facility] [address] [place] [address] Dr. Ko Durbin NEUT # 8.4 103/ul Critically high 1.4-6.5 [facility] Comment on above: Performed By: #### C BC #### [facility] [address] [place] [address] Dr. Ko Durbin Neutrophils/100 WBC (Bld) 76.3 % Critically high 43.0-75.0 [facility] Comment on above: Performed By: #### C BC #### [facility] [address] [place] [address] Dr. Ko Durbin Platelet mean volume (Bld) [Entitic vol] 9.5 fL Normal 9.5-13.5 [facility] Comment on above: Performed By: #### C BC #### [facility] [address] [place] [address] Dr. Ko Durbin PLT 384 103/ul Normal 150-450 [facility] Comment on above: Performed By: #### C BC #### [facility] [address] [place] [address] Dr. Ko Durbin RBC 3.94 106/ul Critically low 4.20-5.40 [facility] Comment on above: Performed By: #### C BC #### [facility] [address] [place] [address] Dr. Ko Durbin WBC 11.0 103/ul Normal 4.0-11.0 [facility] Comment on above: Performed By: #### C BC #### [facility] [address] [place] [address] Dr. oK Durbin CULTURE URINEon 10-10-2022 CULTURE URINE Culture Observations : NO GROWTH. Normal [facility] Comment on above: Performed By: #### U RCX #### [facility] [address] [place] [address] Dr. Ko Durbin Covid-19 PCR (CVDTB)on 09-15 SARS-CoV-2 (COVID-19) RNA RADHA+probe Ql (Unsp spec) Not detected Normal NOT DETECTED [facility] Comment on above: Result Comment: When diagnostic [...] for this test is supported by the [place] of Health and Human Service's declaration that [...] used). Performed By: #### C VDTBH #### [facility] [address] [place] [address] Dr. Ko Durbin LACTATE/LACTIC ACIDon 2022 Lactate [Moles/Vol] 1.7 mmol/L Normal 0.4-1.9 [facility] Comment on above: Performed By: #### L ACT #### [facility] [address] [place] [address] Dr. Ko Durbin POINT OF CARE GLUCOSEon 09-15 Glucose [Mass/Vol] 139 mg/dL Critically high 74-106 [facility] Comment on above: Performed By: #### P OCGLUC #### [facility] [address] [place] [address] Dr. Ko Durbin Glucose [Mass/Vol] 99 mg/dL Normal 74-106 [facility] Comment on above: Performed By: #### L ACT #### [facility] [address] [place] [address] Dr. Ko Durbin PROF 14(COMP METB)on 023 Albumin [Mass/Vol] 3.9 g/dL Normal 3.4-5.0 [facility] Comment on above: Performed By: #### C MP, CMADM, BNP #### [facility] [address] [address] [address] Ko Durbin Albumin/Globulin [Mass ratio] 1.3 {ratio} Normal [facility] Comment on above: Performed By: #### C MP, CMADM, BNP #### [facility] [address] [address] [address] Ko Durbin ALP [Catalytic activity/Vol] 43 U/L Critically low 46-116 [facility] Comment on above: Performed By: #### C MP, CMADM, BNP #### [facility] [address] [place] [address] Dr. Ko Durbin ALT [Catalytic activity/Vol] 34 U/L Normal 14-59 [facility] Comment on above: Performed By: #### C MP, CMADM, BNP #### [facility] [address] [address] [address] Ko Durbin Anion gap [Moles/Vol] 16.2 mmol/L Normal [facility] Comment on above: Performed By: #### C MP, CMADM, BNP #### [facility] [address] [place] [address] Dr. Ko Durbin AST [Catalytic activity/Vol] 18 U/L Normal 15-37 [facility] Comment on above: Performed By: #### C MP, CMADM, BNP #### [facility] [address] [place] [address] Dr. Ko Durbin Bilirubin [Mass/Vol] 0.2 mg/dL Normal 0.2-1.0 [facility] Comment on above: Performed By: #### C MP, CMADM, BNP #### [facility] [address] [place] [address] Dr. Ko Durbin Calcium [Mass/Vol] 9.4 mg/dL Normal 8.5-10.1 [facility] Comment on above: Performed By: #### C MP, CMADM, BNP #### [facility] [address] [address] [address] Ko Durbin Chloride [Moles/Vol] 99 mmol/L Normal 98-107 [facility] Comment on above: Performed By: #### C MP, CMADM, BNP #### [facility] [address] [address] [address] Ko Durbin CO2 [Moles/Vol] 25.7 mmol/L Normal 21.0-32.0 [facility] Comment on above: Performed By: #### C MP, CMADM, BNP #### [facility] [address] [address] [address] Ko Durbin Creatinine [Mass/Vol] 1.10 mg/dL Critically high 0.55-1.02 [facility] Comment on above: Performed By: #### C MP, CMADM, BNP #### [facility] [address] [address] [address] Ko Durbin EGFR-AF BELIZEAN >60 Normal >=60 [facility] Comment on above: Performed By: #### C MP, CMADM, BNP #### [facility] [address] [address] [address] Ko Durbin EGFR-NON AF BELIZEAN 54 mL/min/1.73m2 Critically low >=60 [facility] Comment on above: Performed By: #### C MP, CMADM, BNP #### [facility] [address] [address] [address] Ko Durbin Globulin (S) [Mass/Vol] 2.9 g/dL Normal T [facility] Comment on above: Performed By: #### C MP, CMADM, BNP #### [facility] [address] [address] [address] Ko Durbin Glucose [Mass/Vol] 97 mg/dL Normal 74-106 [facility] Comment on above: Performed By: #### C MP, CMADM, BNP #### [facility] [address] [address] [address] Ko Durbin Potassium [Moles/Vol] 3.9 mmol/L Normal 3.5-5.1 [facility] Comment on above: Performed By: #### C MP, CMADM, BNP #### [facility] [address] [address] [address] Ko Durbin Protein [Mass/Vol] 6.8 g/dL Normal 6.4-8.2 [facility] Comment on above: Performed By: #### C MP, CMADM, BNP #### [facility] [address] [place] [address] Dr. Ko Durbin Sodium [Moles/Vol] 137 mmol/L Normal 136-145 [facility] Comment on above: Performed By: #### C MP, CMADM, BNP #### [facility] [address] [place] [address] Dr. Ko Durbin Urea nitrogen [Mass/Vol] 16.0 mg/dL Normal 7.0-18.0 [facility] Comment on above: Performed By: #### C MP, CMADM, BNP #### [facility] [address] [place] [address] Dr. Ko Durbin Urea nitrogen/Creatinine [Mass ratio] 14.5 mg/mg Normal [facility] Comment on above: Performed By: #### C MP, CMADM, BNP #### [facility] [address] [place] [address] Dr. Ko Durbin UA RANDOM W/MICROSCOPICon BACTERIA NONE SEEN Normal NONE SEEN [facility] Comment on above: Performed By: #### L ACT #### [facility] [address] [place] [address] Dr. Ko Durbin Bilirubin Ql (U) Negative Normal NEGATIVE [facility] Comment on above: Performed By: #### L ACT #### [facility] [address] [place] [address] Dr. Ko Durbin CAST NONE SEEN Normal NONE SEEN [facility] Comment on above: Performed By: #### L ACT #### [facility] [address] [place] [address] Dr. Ko Durbin Clarity (U) CLEAR Normal CLEAR [facility] Comment on above: Performed By: #### L ACT #### [facility] [address] [place] [address] Dr. Ko Durbin Color (U) LT. YELLOW Normal YELLOW [facility] Comment on above: Performed By: #### L ACT #### [facility] [address] [place] [address] Dr. Ko Durbin Crystals LM Nom (Urine sed) NONE SEEN Normal NONE SEEN [facility] Comment on above: Performed By: #### L ACT #### [facility] [address] [place] [address] Dr. Ko Durbin Epithelial cells LM Ql (Urine sed) NONE SEEN Normal NONE SEEN /RARE [facility] Comment on above: Performed By: #### L ACT #### [facility] [address] [place] [address] Dr. Ko Durbin Glucose Ql (U) 500 mg/dl Abnormal NEGATIVE [facility] Comment on above: Performed By: #### L ACT #### [facility] [address] [place] [address] Dr. Ko Durbin Hemoglobin Ql (U) TRACE-INTACT Abnormal NEGATIVE [facility] Comment on above: Performed By: #### L ACT #### [facility] [address] [place] [address] Dr. Ko Durbin Ketones Ql (U) Negative Normal NEGATIVE [facility] Comment on above: Performed By: #### L ACT #### [facility] [address] [place] [address] Dr. Ko Durbin LEUKOCYTES Negative Normal NEGATIVE [facility] Comment on above: Performed By: #### L ACT #### [facility] [address] [place] [address] Dr. Ko Durbin MUCOUS NONE SEEN Normal NONE SEEN [facility] Comment on above: Performed By: #### L ACT #### [facility] [address] [place] [address] Dr. Ko Durbin Nitrite Ql (U) Negative Normal NEGATIVE [facility] Comment on above: Performed By: #### L ACT #### [facility] [address] [place] [address] Dr. Ko Durbin pH (U) 5.5 [pH] Normal 5-9 [facility] Comment on above: Performed By: #### L ACT #### [facility] [address] [place] [address] Dr. Ko Durbin RBC 0-2 Normal 0-2 [facility] Comment on above: Performed By: #### L ACT #### [facility] [address] [address] [address] Ko Durbin SPEC GRAVITY <=1.005 Abnormal 1.005-<=1.0 25 [facility] Comment on above: Performed By: #### L ACT #### [facility] [address] [address] [address] Ko Durbin UA PROTEIN Negative Normal NEGATIVE/ TRACE [facility] Comment on above: Performed By: #### L ACT #### [facility] [address] [place] [address] Dr. Ko Durbin Urobilinogen Qn (U) 0.2 {Rich'U}/dL Normal 0.2 - 1. 0 [facility] Comment on above: Performed By: #### L ACT #### [facility] [address] [place] [address] Dr. Ko Durbin WBC NONE SEEN Normal NONE SEEN [facility] Comment on above: Performed By: #### L ACT #### [facility] [address] [place] [address] Dr. Ko Durbin XR CHEST 2 Von [...] LIAT MARISCAL Date: 2022-10-10 17:23 Normal [facility] XR wrist RT min 3V*on 2022 XR wrist RT min 3V* [facility] [employer] Other XR wrist RT min 3V* [facility] Main [place] [employer] Other XR wrist RT min 3V* [address] [facility] [employer] Other XR wrist RT min 3V* [place] [address] [employer] Other XR wrist RT min 3V* XRay Report Nort [employer] Other XR wrist RT min 3V* Signed [employer] Other XR wrist RT min 3V* Patient: Kourtney Novak MR#: [id number] [employer] Other XR wrist RT min 3V* [id number] [employer] Other XR wrist RT min 3V* : 1975 Acct:[id number] [employer] Other XR wrist RT min 3V* Age/Sex: 46 / F ADM Date: 09/24/22 [employer] Other XR wrist RT min 3V* [place] [facility] [place]: Type : [facility] [employer] Other XR wrist RT min 3V* Attending Dr: Naz Gomes MD [employer] Other XR wrist RT min 3V* Copies to: Elyssa Gomes MD [employer] Other XR wrist RT min 3V* Ordering Provider: Elyssa Gomes MD [employer] Other XR wrist RT min 3V* Date of Service: 09/24/22 [employer] Other XR wrist RT min 3V* XR/XR wrist RT min 3V*: Osteochondrosis of lunate of right wrist [employer] Other XR wrist RT min 3V* RIGHT WRIST - 4 views [employer] Other XR wrist RT min 3V* CLINICAL HISTORY: Follow-up right wrist denervation and radial core decompression [employer] Other XR wrist RT min 3V* COMPARISON: None [employer] Other XR wrist RT min 3V* FINDINGS: [employer] Other XR wrist RT min 3V* No focal soft tissue abnormality. 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 Triquetral fracture is unchanged. Mild degenerative changes without bony erosion. [employer] Other XR wrist RT min 3V* XR/XR wrist RT min 3V* [employer] Other XR wrist RT min 3V* IMPRESSION: [employer] Other XR wrist RT min 3V* NO SIGNIFICANT DURBIN E IN WRIST FINDINGS. [employer] Other XR wrist RT min 3V* Impression dictated by: Rainer Martinez Jr., D.O.09/24/2022 4:36 PM [employer] Other XR wrist RT min 3V* Dictation Location: [place] [address] [employer] Other XR wrist RT min 3V* Transcribed By: PWS 09/24/22 1636 [employer] Other XR wrist RT min 3V* Dictated By: Rainer Martinez Jr, DO 09/24/22 1634 [employer] Other XR wrist RT min 3V* Signed By: [employer] Other XR wrist RT min 3V* 09/24/22 1636 No rt [employer] Other Urine culture routineOrdered By: Sammie Gonzalez on 07-31-2022 Bacteria identified Cx Nom (U) 2 Days [facility] Automated erythrocytes count in urine sediment (number/area)Ordered By: Sammie Gonzalez on 11-15-2022 RBC Auto (Urine sed) [#/Area] 3-4 [HPF] 0-4 [facility] Automated leukocytes count i n urine sediment (number/area)Ordered By: Sammie Gonzalez on 07-29-2022 WBC Auto (Urine sed) [#/Area] None seen [HPF] 0-4 [facility] Bilirubin Test strip Ql (U)O rdered By: Sammie Gonzalez on 07-29-2022 Bilirubin Ql (U) Negative Negative [facility] Color Auto (U)Ordered By: Do erik Gonzalez on 07-29-2022 Color (U) Yellow Yellow [facility] Ketones Auto test strip (U) [Mass/Vol]Ordered By: Sammie Gonzalez on 07-29-2022 Ketones (U) [Mass/Vol] Negative Negative [facility] Laboratory - UrinalysisOrder ed By: Sammie Gonzalez on 07-29-2022 Hyaline casts LM Ql (Urine sed) None seen [LPF] 0-8 [facility] Nitrite Test strip Ql (U)Ord ered By: Sammie Gonzalez on 07-29-2022 Nitrite Ql (U) Negative Negative [facility] Protein Auto test strip (U) [Mass/Vol]Ordered By: Sammie Gonzalez on 07-29-2022 Protein (U) [Mass/Vol] Negative Negative [facility] Specific gravity Auto test s trip (U) [Rel density]Ordered By: Sammie Gonzalez on 07-29-2022 Specific gravity (U) [Rel density] 1.013 1.001-1.030 [facility] Squamous epithelial cells de tection in urine sediment by light microscopyOrdered By: Sammie Gonzalez on 07-29-2022 Epithelial cells.squamous LM Ql (Urine sed) None seen [HPF] 0-2 [facility] Urine bacteria detection by automated methodOrdered By: Sammie Gonzalez on 07-29-2022 Bacteria Auto Ql (U) None seen None Seen [facility] Urine clarity by refractomet ry automatedOrdered By: Sammie Gonzalez on 07-29-2022 Clarity Refractometry automated (U) Clear Clear [facility] Urine culture routineOrdered By: Sammie Gonzalez on 07-29-2022 Bacteria identified Cx Nom (U) 2 Days [facility] Urine glucose measurement by automated test strip (mass/volume)Ordered By: Sammie Gonzalez on 07-29-2022 Glucose Auto test strip (U) [Mass/Vol] >=1000 mg/dL Normal [facility] Urine hemoglobin detection b y automated test stripOrdered By: Sammie Gonzalez on 07-29-2022 Hemoglobin Auto test strip Ql (U) Trace Negative [facility] Urine leukocyte esterase det ection by automated test stripOrdered By: Sammie Gonzalez on 07-29-2022 Leukocyte esterase Auto test strip Ql (U) Negative Negative [facility] Urobilinogen Auto test strip (U) [Mass/Vol]Ordered By: Sammie Gonzalez on 07-29-2022 Urobilinogen (U) [Mass/Vol] Normal mg/dL Normal [facility] pH Auto test strip (U)Ordere d By: Sammie Gonzalez on 07-29-2022 pH (U) 6.0 [pH] 5.0-9.0 [facility] Albumin [Mass/volume] in Ser um or PlasmaOrdered By: Sammie Gonzalez on 05-01-2022 Albumin [Mass/Vol] 4.0 g/dL 3.2-5.5 [facility] Basophils Auto (Bld) [#/Vol] Ordered By: Sammie Gonzalez on 05-01-2022 Basophils (Bld) [#/Vol] 0.0 10*3/uL 0.0-0.2 [facility] Basophils/100 WBC Auto (Bld) Ordered By: Sammie Gonzalez on 05-01-2022 Basophils/100 WBC (Bld) 0.8 % . [facility] Blood hemoglobin measurement (mass/volume)Ordered By: Sammie Gonzalez on 05-01-2022 Hemoglobin (Bld) [Mass/Vol] 12.4 g/dL 11.8-15.4 [facility] Blood leukocytes automated c ount (number/volume)Ordered By: Sammie Gonzalez on 05-01-2022 WBC (Bld) [#/Vol] 6.0 10*3/uL 4.5-11.0 [facility] Cholesterol [Mass/volume] in Serum or PlasmaOrdered By: Sammie Gonzalez on 05-01-2022 Cholesterol [Mass/Vol] 189 mg/dL 140-200 [facility] Comment on above: Chol less than 200 m g/dl low risk Chol 201-239 mg/dl borderline risk Chol 240 mg/dl and greater high risk Chol less than 200 m g/dl low riskChol 201-239 mg/dl borderline riskChol 240 mg/dl and greater high risk Cholesterol in LDL Calc [Mas s/Vol]Ordered By: Sammie Gonzalez on 05-01-2022 Cholesterol in LDL [Mass/Vol] 92 mg/dL 0-100 [facility] Comment on above: LDL ATP III CLASSIFI [...] 05-01-2022 Cholesterol in VLDL [Mass/Vol] 19 mg/dL [facility] Creatinine and Glomerular fi ltration rate.predicted panel (S/P/Bld)Ordered By: Sammie Gonzalez on 05-01-2022 Creatinine [Mass/Vol] 1.06 mg/dL 0.44-1.03 [facility] Eosinophils Auto (Bld) [#/Vo l]Ordered By: Sammie Gonzalez on 05-01-2022 Eosinophils (Bld) [#/Vol] 0.1 10*3/uL 0.0-0.45 [facility] Eosinophils/100 WBC Auto (Bl d)Ordered By: Sammie Gonzalez on 05-01-2022 Eosinophils/100 WBC (Bld) 1.2 % . [facility] Erythrocyte distribution wid th Auto (RBC) [Ratio]Ordered By: Sammie Gonzalez on 05-01-2022 Erythrocyte distribution width (RBC) [Ratio] 13.7 % 11.9-15.3 [facility] Estimated glomerular filtrat ion rate (GFR) non- AmericanOrdered By: Sammie Gonzalez on 05-01-2022 GFR/1.73 sq M.predicted among non-blacks MDRD (S/P/Bld) [Vol rate/Area] 56 mL/Min [facility] Globulin Calc (S) [Mass/Vol] Ordered By: Sammie Gonzalez on 05-01-2022 Globulin (S) [Mass/Vol] 2.3 g/dL [facility] Glucose mean value [Mass/vol ume] in Blood Estimated from glycated hemoglobinOrdered By: Sammie Gonzalez on 05-01-2022 Average glucose Estimated from glycated hemoglobin (Bld) [Mass/Vol] 117 mg/dL [facility] Hematocrit Auto (Bld) [Volum e fraction]Ordered By: Sammie Gonzalez on 05-01-2022 Hematocrit (Bld) [Volume fraction] 38.4 % 34.0-46.4 [facility] Hemoglobin A1c percentageOrd ered By: Sammie Gonzalez on 05-01-2022 HbA1c (Bld) [Mass fraction] 5.7 % 4.3-5.6 [facility] Comment on above: Increased risk for d iabetes: 5.7 - 6.4 diabetes: >6.4 glycemic control for adults with diabetes: <7.0 Increased risk for d iabetes: 5.7 - 6.4diabetes: >6.4glycemic control for adults with diabetes: <7.0 Iron [Mass/volume] in Serum or PlasmaOrdered By: Sammie Gonzalez on 05-01-2022 Iron [Mass/Vol] 48 ug/dL 40-150 [facility] - Chemistry and C hemistry - challengeOrdered By: Sammie Gonzalez on 05-01-2022 Natriuretic peptide B (Bld) [Mass/Vol] 7.0 pg/mL 5-100 [facility] - Hematology and Cell countsOrdered By: Sammie Gonzalez on 05-01-2022 Nucleated RBC/100 WBC (Bld) [Ratio] 0.0 % 0-0.5 [facility] Lymphocytes Auto (Bld) [#/Vo l]Ordered By: Sammie Gonzalez on 05-01-2022 Lymphocytes (Bld) [#/Vol] 1.4 10*3/uL 1.00-4.8 [facility] Lymphocytes/100 WBC Auto (Bl d)Ordered By: Sammie Gonzalez on 05-01-2022 Lymphocytes/100 WBC (Bld) 23.0 % . [facility] MCH Auto (RBC) [Entitic mass ]Ordered By: Sammie Gonzalez on 05-01-2022 MCH (RBC) [Entitic mass] 28.9 pg 24.7-34.3 [facility] MCHC Auto (RBC) [Mass/Vol]Or dered By: Sammie Gonzalez on 05-01-2022 MCHC (RBC) [Mass/Vol] 32.4 g/dL 32.0-35.0 [facility] MCV Auto (RBC) [Entitic vol] Ordered By: Sammie Gonzalez on 05-01-2022 MCV (RBC) [Entitic vol] 89.1 fL 80-100 [facility] Monocytes Auto (Bld) [#/Vol] Ordered By: Sammie Gonzalez on 05-01-2022 Monocytes (Bld) [#/Vol] 0.6 10*3/uL 0.0-0.8 [facility] Monocytes/100 WBC Auto (Bld) Ordered By: Sammie Gonzalez on 05-01-2022 Monocytes/100 WBC (Bld) 9.1 % . [facility] Neutrophils Auto (Bld) [#/Vo l]Ordered By: Sammie Gonzalez on 05-01-2022 Neutrophils (Bld) [#/Vol] 4.0 10*3/uL 1.8-7.7 [facility] Neutrophils/100 WBC Auto (Bl d)Ordered By: Sammie Gonzalez on 05-01-2022 Neutrophils/100 WBC (Bld) 65.9 % . [facility] No Panel InformationOrdered By: Sammie Gonzalez on 05-01-2022 Estimated GFR () > 60 mL/Min [facility] Comment on above: GFR estimated refere nce range: According to KDOQI guidelines, <60 ml/min/1.73m2 is sufficient to diagnose a patient with chronic kidney disease. Pharmacy Creatinine Clearance (Chem N/A [facility] Platelet mean volume Auto (B ld) [Entitic vol]Ordered By: Sammie Gonzalez on 05-01-2022 Platelet mean volume (Bld) [Entitic vol] 8.5 fL 6.3-10.7 [facility] Platelets Auto (Bld) [#/Vol] Ordered By: Sammie Gonzalez on 05-01-2022 Platelets (Bld) [#/Vol] 385 10*3/uL 150-450 [facility] Protein [Mass/volume] in Ser um or PlasmaOrdered By: Sammie Gonzalez on 05-01-2022 Protein [Mass/Vol] 6.3 g/dL 6.1-7.9 [facility] RBC Auto (Bld) [#/Vol]Ordere d By: Sammie Gonzalez on 05-01-2022 RBC (Bld) [#/Vol] 4.31 10*6/uL 3.60-5.00 [facility] Serum or plasma alanine bass otransferase measurement without P-5'-P (enzymatic activiOrdered By: Sammie Gonzalez on 05-01-2022 ALT No additional P-5'-P [Catalytic activity/Vol] 22 U/L 10-60 [facility] Serum or plasma albumin/glob ulin mass ratioOrdered By: Sammie Gonzalez 05-01-2022 Albumin/Globulin [Mass ratio] 1.7 {ratio} [facility] Serum or plasma alkaline leela sphatase measurement (enzymatic activity/volume)Ordered By: Sammie Gonzalez 05-01-2022 ALP [Catalytic activity/Vol] 52 U/L 32-92 [facility] Serum or plasma aspartate am inotransferase measurement (enzymatic activity/volume)Ordered By: Sammie Gonzalez 05-01-2022 AST [Catalytic activity/Vol] 17 U/L 10-42 [facility] Serum or plasma calcium kiara urement (mass/volume)Ordered By: Sammie Gonzalez 05-01-2022 Calcium [Mass/Vol] 9.5 mg/dL 8.2-10.2 [facility] Serum or plasma chloride aby surement (moles/volume)Ordered By: Sammie Gonzalez on 05-01-2022 Chloride [Moles/Vol] 100 mmol/L 95-114 [facility] Serum or plasma glucose kiara urement (mass/volume)Ordered By: Sammie Gonzalez on 05-01-2022 Glucose [Mass/Vol] 96 mg/dL 70-100 [facility] Comment on above: ADA recommended refe [...] Cholesterol in HDL [Mass/Vol] 78 mg/dL 35-85 [facility] Comment on above: HDL CHOL ATP-III CLA SSIFICATION Cardiovascular Risk HDL > or equal to 60 mg/dL LOW HDL < 40 mg/dL HIGH HDL CHOL ATP-III CLA SSIFICATION Cardiovascular RiskHDL > or equal to 60 mg/dL LOWHDL < 40 mg/dL HIGH Serum or plasma potassium me asurement (moles/volume)Ordered By: Sammie Gonzalez on 05-01-2022 Potassium [Moles/Vol] 4.2 mmol/L 3.5-5.1 [facility] Serum or plasma sodium measu rement (moles/volume)Ordered By: Sammie Gonzalez on 05-01-2022 Sodium [Moles/Vol] 134 mmol/L 136-146 [facility] Serum or plasma thyroxine (T 4) measurement (mass/volume)Ordered By: Sammie Gonzalez on 05-01-2022 T4 [Mass/Vol] 9.20 ug/dL 5.39-11.82 [facility] Serum or plasma total biliru bin measurement (mass/volume)Ordered By: Sammie Gonzalez on 05-01-2022 Bilirubin [Mass/Vol] 0.4 mg/dL 0.3-1.2 [facility] Serum or plasma total carbon dioxide measurement (moles/volume)Ordered By: Sammie Gonzalez on 05-01-2022 CO2 [Moles/Vol] 24.2 mmol/L 22.0-30.0 [facility] Serum or plasma total choles terol/high density lipoprotein (HDL) cholesterol mass ratOrdered By: Sammie Gonzalez on 05-01-2022 Cholesterol.total/Tali sterol in HDL [Mass ratio] 2.4 {ratio} <5.0 [facility] Serum or plasma urea nitroge n measurement (mass/volume)Ordered By: Sammie Gonzalez on 05-01-2022 Urea nitrogen [Mass/Vol] 14 mg/dL 9- [facility] TSH DL <= 0.005 mIU/L QnOrde red By: Sammie Gonzalez on 05-01-2022 TSH Qn 3.07 m[IU]/L 0.45-5.33 [facility] Triglyceride [Mass/volume] i n Serum or PlasmaOrdered By: Sammie Gonzalez on 05-01-2022 Triglyceride [Mass/Vol] 97 mg/dL 35-149 [facility] Comment on above: TRIG ATP III CLASSIF [...] Gonzalez on 05-01-2022 T3RU 25 % 24-39 [facility] Comment on above: Performed at: [facility] [id number] [place], [place] [id number] [employer]: Maxim Daniel PhD, Phone: [phone] Performed at: [id number] [place], [place] [id number] Director: Maxim Daniel PhD, Phone: [phone] XR wrist RT 2Von 01-24-2022 XR wrist RT 2V [facility] [employer] Other XR wrist RT 2V [facility] Main [facility] [employer] Other XR wrist RT 2V [address] [facility] [employer] Other XR wrist [place] [address] [address] No rt [employer] Other XR wrist RT 2V XRay Report [employer] Other XR wrist RT 2V Signed [employer] Other XR wrist RT 2V Patient: Kourtney Novak MR#: [id number] [employer] Other XR wrist RT 2V [id number] [employer] Other XR wrist RT 2V : 1975 Acct:[id number] [employer] Other XR wrist RT 2V Age/Sex: 46 / F ADM Date: 01/24/22 [employer] Other XR wrist RT 2V [place] [facility] [place] Type [place] [facility] [employer] Other XR wrist RT 2V Attending Dr: Naz Gomes MD [employer] Other XR wrist RT 2V Ordering Provider: Elyssa Gomes MD [employer] Other XR wrist RT 2V Date of Service: 01/24/22 [employer] Other XR wrist RT 2V XR/XR wrist RT 2V: Osteochondrosis of lunate of right wrist [employer] Other XR wrist RT 2V Copies to: Elyssa Gomes MD [employer] Other XR wrist RT 2V Right wrist 01/24/2022. [employer] Other XR wrist RT 2V CLINICAL DATA: Osteochondrosis of lunate of right wrist. [employer] Other XR wrist RT 2V FINDINGS: 2 views of the right wrist were obtained and are compared with a prior study 12/24/2021. [employer] Other XR wrist RT 2V No acute fracture or dislocation is identified. The lunate again appears sclerotic. This finding [employer] Other XR wrist RT 2V has not significantl y changed. No collapse is seen. No soft tissue swelling is visualized. [employer] Other XR wrist RT 2V XR/XR wrist RT 2V [employer] Other XR wrist RT 2V IMPRESSION: Scleroti c lunate, not significantly changed. [employer] Other XR wrist RT 2V Impression dictated by: Brody Marks Jr., M.D.01/24/2022 3:00 PM [employer] Other XR wrist RT 2V Dictation Location: [place] [address] [employer] Other XR wrist RT 2V Transcribed By: GRACIE 01/24/22 1500 [employer] Other XR wrist RT 2V Dictated By: Brody Marks Jr, MD 01/24/22 1454 [employer] Other XR wrist RT 2V Signed By: [employer] Other XR wrist RT 2V 01/24/22 1500 [employer] Other XR wrist RT min 3V*on 2021 XR wrist RT min 3V* [facility] [employer] Other XR wrist RT min 3V* [facility] Main [place] [employer] Other XR wrist RT min 3V* [address] [place] [address] [employer] Other XR wrist RT min 3V* [place] [address] [employer] Other XR wrist RT min 3V* XRay Report Nort [employer] Other XR wrist RT min 3V* Signed [employer] Other XR wrist RT min 3V* Patient: Kourtney Novak MR#: [id number] [employer] Other XR wrist RT min 3V* [id number] [employer] Other XR wrist RT min 3V* : 1975 Acct:[id number] [employer] Other XR wrist RT min 3V* Age/Sex: 46 / F ADM Date: 11/20/21 [employer] Other XR wrist RT min 3V* [place] [facility] [place] [facility] [employer] Other XR wrist RT min 3V* Attending Dr: Naz Gomes MD [employer] Other XR wrist RT min 3V* Ordering Provider: Elyssa Gomes MD [employer] Other XR wrist RT min 3V* Date of Service: 11/20/21 [employer] Other XR wrist RT min 3V* XR/XR wrist RT min 3V*: Other specified postprocedural [employer] Other XR wrist RT min 3V* states;Osteochondros i s of [facility] [employer] Other XR wrist RT min 3V* Copies to: Elyssa Gomes MD [employer] Other XR wrist RT min 3V* 4 viewsRIGHT wrist plain film [employer] Other XR wrist RT min 3V* COMPARISON:None [employer] Other XR wrist RT min 3V* HISTORY: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 No collapse identified. Calculi metacarpal bones [employer] Other XR wrist RT min 3V* identified. No soft tissue abnormality seen. [employer] Other XR wrist RT min 3V* XR/XR wrist RT min 3V* [employer] Other XR wrist RT min 3V* IMPRESSION:Sclerotic changes of the lunate. Adequate bony alignment. No collapse. [employer] Other XR wrist RT min 3V* Impression dictated by: George Gray M.D.11/20/2021 3:59 PM [employer] Other XR wrist RT min 3V* Dictation Location: [place] [address] [employer] Other XR wrist RT min 3V* Transcribed By: GRACIE 11/20/21 [facility]9 [employer] Other XR wrist RT min 3V* Dictated By: George Gray DO 11/20/21 [facility] [employer] Other XR wrist RT min 3V* Signed By: [employer] Other XR wrist RT min 3V* 11/20/21 1559 No [employer] Other XR wrist RT min 3V*on 2020 XR wrist RT min 3V* [facility] [employer] Other XR wrist RT min 3V* [facility] [place] [employer] Other XR wrist RT min 3V* [address] [place] [address] [employer] Other XR wrist RT min 3V* VIVIEN Benavides [id number] [employer] Other XR wrist RT min 3V* XRay Report Nort [employer] Other XR wrist RT min 3V* Signed [employer] Other XR wrist RT min 3V* Patient: Kourtney Novak MR#: [id number] [employer] Other XR wrist RT min 3V* [id number] [employer] Other XR wrist RT min 3V* : 1975 Acct:[id number] [employer] Other XR wrist RT min 3V* Age/Sex: 45 / F ADM Date: 08/28/21 [employer] Other XR wrist RT min 3V* [place] [facility] [place] [facility] [place] [facility] [employer] Other XR wrist RT min 3V* Attending Dr: Naz Gomes MD [employer] Other XR wrist RT min 3V* Ordering Provider: Elyssa Gomes MD [employer] Other XR wrist RT min 3V* Date of Service: 08/28/21 [employer] Other XR wrist RT min 3V* XR/XR wrist RT min 3V*: M92.211 [employer] Other XR wrist RT min 3V* Copies to: Elyssa Gomes MD [employer] Other XR wrist RT min 3V* RIGHT WRIST - 4 views [employer] Other XR wrist RT min 3V* CLINICAL DATA: Right wrist pain and decreased range of motion. No injury. [employer] Other XR wrist RT min 3V* COMPARISON: 11/15/2020 and MRI 11/15/2020 [employer] Other XR wrist RT min 3V* AP, lateral, oblique and ulnar deviation views were obtained. There is no acute fracture or [employer] Other XR wrist RT min 3V* dislocation. Minor sclerosis is again seen at the lunate where there is also subchondral cystic [employer] Other XR wrist RT min 3V* change medially. Thi s is similar to the prior. There is no developing joint space narrowing or [employer] Other XR wrist RT min 3V* hypertrophy. No prominent soft tissue swelling is noted. [employer] Other XR wrist RT min 3V* XR/XR wrist RT min 3V* [employer] Other XR wrist RT min 3V* IMPRESSION: Nort [employer] Other XR wrist RT min 3V* BONY CHANGES AT THE LUNATE, SIMILAR TO THE COMPARISON. [employer] Other XR wrist RT min 3V* NO ACUTE FINDINGS. [employer] Other XR wrist RT min 3V* Impression dictated by: Trixie Irizarry M.D.08/28/2021 4:42 PM [employer] Other XR wrist RT min 3V* Dictation Location: [place] [address] [employer] Other XR wrist RT min 3V* Transcribed By: GRACIE 08/28/21 1642 [employer] Other XR wrist RT min 3V* Dictated By: Trixie Irizarry MD 08/28/21 1639 [employer] Other XR wrist RT min 3V* Signed By: [employer] Other XR wrist RT min 3V* 08/28/21 1642 No rt [employer] Other XR FOOT 3V AP/LAT/OBL BILon 03-04-2021 [...] No other significant abnormality. --- IMPRESSION: NORMAL Word Processor Operator: GUANACO Transcribe Date/Time: Mar 04 2021 2:52P Dictated by : TOBI HERRMANN MD This examination was interpreted and the report reviewed and electronically signed by: TOBI HERRMANN MD on Mar 04 2021 2:57PM EST [id number] N [facility] XR HAND 3V PA/LAT/OBL BILon 03-04-2021 [...] REMOTE FRACTURES OF THE LEFT WRIST DESCRIBED Word Processor Operator: AMKAI Transcribe Date/Time: Mar 04 2021 2:57P Dictated by : TOBI HERRMANN MD This examination was interpreted and the report reviewed and electronically signed by: TOBI HERRMANN MD on Mar 04 2021 2:59PM EST [id number] N [facility] Vital Signs Date Time Vital Sign Value Performing Clinician Facility 07-13-2024 17:34-0400 Body mass index (BMI) [Ratio] 40.77 kg/m2 Estevan Polanco INVESTMENT STRATEGIST Work Phone: [facility] 07-13-2024 17:34-0400 Body temperature 98.71 [degF] Estevan Polanco INVESTMENT STRATEGIST Work Phone: [facility] 07-13-2024 17:34-0400 Body weight 111.13 kg Estevan Polanco INVESTMENT STRATEGIST Work Phone: [facility] 07-13-2024 17:34-0400 Diastolic blood pressure 88 mm[Hg] Estevan Polanco INVESTMENT STRATEGIST Work Phone: [facility] 07-13-2024 17:34-0400 Heart rate 87 /min Estevan Polanco INVESTMENT STRATEGIST Work Phone: [facility] 07-13-2024 17:34-0400 SaO2% (BldA) [Mass fraction] 99 % Estevan Polanco INVESTMENT STRATEGIST Work Phone: [facility] 07-13-2024 17:34-0400 Systolic blood pressure 124 mm[Hg] Estevan Polanco INVESTMENT STRATEGIST Work Phone: [facility] 05-30-2024 09:38-0400 Body mass index (BMI) [Ratio] 40.61 kg/m2 Zeinab Wood MD Work Phone: [facility] 05-30-2024 09:38-0400 Body weight 109 kg Zeinab Wood MD Work Phone: [facility] 05-30-2024 09:38-0400 Diastolic blood pressure 72 mm[Hg] Zeinab Wood MD Work Phone: [facility] 05-30-2024 09:38-0400 Heart rate 87 /min Zeinab Wood MD Work Phone: [facility] 05-30-2024 09:38-0400 Respiratory rate 18 /min Zeinab Wood MD Work Phone: [facility] 05-30-2024 09:38-0400 Systolic blood pressure 109 mm[Hg] Zeinab Wood MD Work Phone: [facility] 06-30-2023 10:52-0400 Body height 164 cm Erik Pineda MD Work Phone: [facility] 06-30-2023 10:52-0400 Body temperature 98.71 [degF] Erik Pineda MD Work Phone: [facility] 06-30-2023 10:52-0400 Body weight 101.88 kg Erik Pineda MD Work Phone: [facility] 06-30-2023 10:52-0400 Diastolic blood pressure 58 mm[Hg] Erik Pineda MD Work Phone: [facility] 06-30-2023 10:52-0400 Heart rate 103 /min Erik Pineda MD Work Phone: [facility] 06-30-2023 10:52-0400 Respiratory rate 18 /min Erik Pineda MD Work Phone: [facility] 06-30-2023 10:52-0400 SaO2% (BldA) [Mass fraction] 97 % Erik Pineda MD Work Phone: [facility] 06-30-2023 10:52-0400 Systolic blood pressure 117 mm[Hg] Erik Pineda MD Work Phone: [facility] 05-06-2023 07:10-0400 Body height 165.1 cm MD Sammie Gonzalez Work Phone: [facility] 05-06-2023 07:10-0400 Body weight 102.05 kg MD Sammie Gonzalez Work Phone: [facility] 03-31-2023 09:30-0400 Body height 165.1 cm Russell Shields Other [employer] Other 03-31-2023 09:30-0400 Body mass index (BMI) [Ratio] 36.94 kg/m2 Russell Shields Other [employer] Other 03-31-2023 09:30-0400 Body weight 100.7 kg Russell Shields Other [employer] Other 03-31-2023 09:30-0400 Diastolic blood pressure 68 mm[Hg] Russell Shields Other [employer] Other 03-31-2023 09:30-0400 Systolic blood pressure 109 mm[Hg] Russell Shields Other [employer] Other 09-29-2022 15:28-0500 Body weight 114.08 kg Zeinab Wood MD Work Phone: [facility] 09-29-2022 15:28-0500 Diastolic blood pressure 56 mm[Hg] Zeinab Wood MD Work Phone: [facility] 09-29-2022 15:28-0500 Heart rate 99 /min Zeinab Wood MD Work Phone: [facility] 09-29-2022 15:28-0500 Systolic blood pressure 115 mm[Hg] Zeinab Wood MD Work Phone: [facility] 07-17-2022 15:45-0400 Body height 165.1 cm Beti Bowles Other [employer] Other 03-31-2022 14:00-0400 Body height 165.1 cm Beti Bowles Other [employer] Other 03-31-2022 14:00-0400 Body mass index (BMI) [Ratio] 39.6 kg/m2 Beti Bowles Other [employer] Other 03-31-2022 14:00-0400 Body weight 107.96 kg Beti Jean[facility] Other [employer] Other 01-27-2022 14:15-0400 Body height 165.1 cm Beti Jelena Other [employer] Other 01-27-2022 14:15-0400 Body mass index (BMI) [Ratio] 39.93 kg/m2 Beti Jelena Other [employer] Other 01-27-2022 14:15-0400 Body weight 108.86 kg Beti Jean[facility] Other [employer] Other 01-20-2022 11:03-0400 Body height 165.1 cm Zeinab Wood MD Work Phone: [facility] 01-20-2022 11:03-0400 Body weight 104.06 kg Zeinab Wood MD Work Phone: [facility] 01-20-2022 11:03-0400 Diastolic blood pressure 67 mm[Hg] Zeinab Wood MD Work Phone: [facility] 01-20-2022 11:03-0400 Heart rate 108 /min Zeinab Wood MD Work Phone: [facility] 01-20-2022 11:03-0400 Systolic blood pressure 113 mm[Hg] Zeinab Wood MD Work Phone: [facility] 11-20-2021 16:15-0500 Body height 165.1 cm Elyssa Gomes Other [employer] Other 11-20-2021 16:15-0500 Body mass index (BMI) [Ratio] 39.93 kg/m2 Elyssa Gomes Other [employer] Other 11-20-2021 16:15-0500 Body weight 108.86 kg Elyssa Calvey Other [employer] Other 10-08-2021 15:15-0500 Body height 165.1 cm Elyssa Calvey Other [employer] Other 10-08-2021 15:15-0500 Body mass index (BMI) [Ratio] 39.43 kg/m2 Elyssa Calvey Other [employer] Other 10-08-2021 15:15-0500 Body weight 107.5 kg Elyssa Calvey Other [employer] Other 08-28-2021 16:15-0500 Body height 165.1 cm Elyssa Calvey Other [employer] Other 08-28-2021 16:15-0500 Body mass index (BMI) [Ratio] 38.77 kg/m2 Elyssa Calvey Other [employer] Other 08-28-2021 16:15-0500 Body weight 105.69 kg Elyssa Calvey Other [employer] Other Encounters Encounter Date Encounter Type Care Provider Facility Start: 07-18-2024 End: 07-18-2024 ambulatory Ridge Hollingsworth MD Facility:[facility] Start: 07-13-2024 End: 07-13-2024 ambulatory ESTEVAN POLANOC Not Available Start: 07-13-2024 End: 07-13-2024 Office outpatient visit 25 minutes Estevan Polanco INVESTMENT STRATEGIST Work Phone: [facility] Comment on above: Tooth infection (Ingrid cezar Dx) Start: 07-04-2024 End: 07-04-2024 ambulatory Ridge Hollingsworth MD Facility: [place] Start: 06-22-2024 End: 06-22-2024 Patient encounter procedure MD Sammie Gonzalez Work Phone: [facility] Start: 06-22-2024 End: 06-22-2024 ambulatory MD Sammie Gonzalez Work Phone: [facility] Work Phone: Start: 06-21-2024 End: 06-21-2024 ambulatory MD Sammie Gonzalez Work Phone: [facility] Work Phone: Start: 06-21-2024 End: 06-21-2024 Patient encounter procedure MD Sammie Gonzalez Work Phone: [facility] Work Phone: Start: 06-20-2024 End: 06-20-2024 ambulatory Ridge Hollingsworth MD Facility: [facility] Start: 05-30-2024 End: 05-30-2024 ambulatory SAMMIE GONZALEZ Facility:[facility] Start: 05-30-2024 End: 05-30-2024 Patient encounter procedure Zeinab Wood MD Work Phone: Rheumatology Comment on above: Inflammatory arthrit is (Primary Dx); Fibromyalgia; Medication monitoring encounter Start: 05-25-2024 End: 05-26-2024 Refill Rachele Fenton APRN.CNP Work Phone: Neurology Headache [facility] Comment on above: Refill Request Start: 05-12-2024 End: 05-12-2024 Patient encounter procedure MD Sammie Gonzalez Work Phone: [facility] Start: 05-12-2024 End: 05-12-2024 ambulatory MD Sammie Gonzalez Work Phone: [facility] Work Phone: Start: 05-09-2024 End: 05-09-2024 ambulatory Ridge Hollingsworth MD Facility:[facility] [place] Start: 04-25-2024 End: 04-25-2024 ambulatory Ridge Hollingsworth MD Facility:[facility] [place] Start: 03-25-2024 Refill Zeinab Wood MD Work Phone: Rheumatology Comment on above: Refill Request Start: 03-21-2024 ambulatory Mohammamacrina Mcknightda n DEEP SEA DIVER.DRIER AND GRINDER TENDER Work Phone: Neurology [facility] Comment on above: Robaxin Start: 03-18-2024 ambulatory Mohrinku Mcknightda n DEEP SEA DIVER.DRIER AND GRINDER TENDER Work Phone: Neurology [facility] Comment on above: Insurance Start: 03-08-2024 Telephone encounter Erik martinez MD Work Phone: Pending [facility] To [facility] [place] Comment on above: epidural steroid inj ection Start: 03-07-2024 End: 03-07-2024 ambulatory Ridge Hollingsworth MD Facility:[facility] [place] Start: 03-04-2024 End: 03-04-2024 ambulatory MD Sammie Gonzalez Work Phone: [facility] Work Phone: Start: 03-04-2024 End: 03-04-2024 Patient encounter procedure MD Sammie Gonzalez Work Phone: [facility] Work Phone: Start: 02-15-2024 End: 02-15-2024 Patient encounter procedure MD Sammie Gonzalez Work Phone: [facility]Ul[facility] [place] Work Phone: Start: 02-15-2024 End: 02-15-2024 ambulatory MD Sammie Gonzalez Work Phone: [facility] Work Phone: Start: 02-10-2024 Telephone encounter Rachele acevedo DEEP SEA DIVER.DRIER AND GRINDER TENDER Work Phone: Neurology Comment on above: Insurance Authorizat ionLiev Aurelio DOYLE - Medicare / [employer]. Start: 02-09-2024 End: 02-09-2024 Patient encounter procedure MD Sammie Gonzalez Work Phone: [facility] [address] Work Phone: Start: 02-09-2024 End: 02-09-2024 ambulatory MD Sammie Gonzalez Work Phone: [facility] Work Phone: Start: 02-05-2024 End: 02-05-2024 ambulatory Rachele Mendesmarie DEEP SEA DIVER.DRIER AND GRINDER TENDER Work Phone: Neurology [facility] Comment on above: Meningioma (HCC) (Pr imary Dx); Chronic daily headache Start: 02-05-2024 End: 02-05-2024 Telemedicine consultation with patient Rachele Mendesmarie DEEP SEA DIVER.DRIER AND GRINDER TENDER Work Phone: Neurology [facility] Start: 02-02-2024 End: 02-02-2024 ambulatory SAMMIE GONZALEZ [facility] Comment on above: Intracranial meningi sera (HCC) (Primary Dx) Start: 02-02-2024 End: 02-02-2024 Telemedicine consultation with patient Fellow Appointments Work Phone: Pending [facility] Start: 02-02-2024 Telephone encounter Mario Alberto Phillips RN [facility] Comment on above: Appointment Start: 02-01-2024 End: 02-01-2024 ambulatory YOLA CARABALLO Not Available Start: 01-30-2024 Refill Fahad Corey MD Work Phone: Neurology [facility] Comment on above: Refill Request Start: 01-29-2024 ambulatory ERIK PINEDA Facilit y:[facility] Start: 01-29-2024 End: 01-29-2024 Subsequent hospital visit by physician [facility] Work Phone: [facility] Comment on above: 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 eninges (HCC) [D32.9] Start: 01-27-2024 Refill Zeinab Wood MD Work Phone: Rheumatology Comment on above: Refill Request Start: 01-26-2024 End: 01-26-2024 Patient encounter procedure MD Sammie Gonzalez Work Phone: [facility] Work Phone: Start: 01-19-2024 Telephone encounter Mario Alberto Phillips RN [facility] Comment on above: Schedule Surgery ([place] rgery Planning ) Start: 01-08-2024 Telephone encounter Zeinab kenyon MD Work Phone: Rheumatology Comment on above: Results Start: 01-08-2024 End: 01-08-2024 Patient encounter procedure MD Sammie Gonzalez Work Phone: [facility] Start: 01-08-2024 End: 01-08-2024 ambulatory MD Sammie Gonzalez Work Phone: [facility] Work Phone: Start: 01-05-2024 Telephone encounter Mario Alberto Phillips RN [facility] Comment on above: Schedule Surgery Start: 01-04-2024 Telephone encounter Zeinab kenyon MD Work Phone: Rheumatology Comment on above: Lab Orders/FAX Start: 12-20-2023 End: 12-20-2023 ambulatory WANDY PHILLIPS Not Available Start: 11-29-2023 Refill Zeinab Wood MD Work Phone: Rheumatology Comment on above: Refill Request Start: 11-25-2023 End: 11-25-2023 Patient encounter procedure MD Sammie Gonzalez Work Phone: [facility] Work Phone: Start: 11-12-2023 Refill Zeinab Wood MD Work Phone: Rheumatology Comment on above: Refill Request Start: 11-11-2023 Telephone encounter Mario Alberto Phillips RN [facility] [place] Comment on above: Care Coordination (f ollow up) Start: 11-11-2023 End: 11-11-2023 Patient encounter procedure MD Sammie Gonzalez Work Phone: [facility] Start: 11-11-2023 End: 11-11-2023 ambulatory Sammie Gonzalez Facility:[facility] Start: 11-10-2023 Refill Zeinab Wood MD Work Phone: Rheumatology Comment on above: Refill Request Start: 11-09-2023 Refill Zeinab Wood MD Work Phone: Rheumatology Comment on above: Refill Request Start: 09-28-2023 End: 09-28-2023 ambulatory ZEINAB WOOD Facility:[facility] Start: 07-05-2023 Admission to [facility] Erik Pineda MD Work Phone: [facility] [place] Comment on above: Surgery Start: 07-05-2023 ambulatory Erik castañeda MD Work Phone: [facility] Start: 07-02-2023 Telephone encounter Erik martinez MD Work Phone: [facility] Comment on above: Patient Update (Disc uss Surgery March 2024) Start: 06-30-2023 End: 06-30-2023 ambulatory [facility] Facility:[facility] Start: 06-30-2023 End: 06-30-2023 Patient encounter procedure Erik Pineda MD Work Phone: [facility] Comment on above: Intracranial meningi sera (HCC) (Primary Dx) Start: 06-26-2023 End: 06-26-2023 ambulatory [facility] Facility:[facility] Start: 06-26-2023 End: 06-26-2023 Office outpatient new 45 minutes Fahad Corey MD Work Phone: Neurology [facility] Comment on above: Medication overuse h eadache (Primary Dx); Brain mass; Meningioma (HCC); Chronic daily headache Start: 06-01-2023 End: 06-01-2023 ambulatory MONTSE LOU Facility:[facility] Start: 05-22-2023 End: 05-22-2023 ambulatory MD Sammie Gonzalez Work Phone: [facility] Work Phone: Start: 05-22-2023 End: 05-22-2023 Patient encounter procedure MD Sammie Gonzalez Work Phone: [facility] Start: 05-13-2023 Telephone encounter Moirashauna Chakrabortytonya thayer APRN.DRIER AND GRINDER TENDER Work Phone: [facility] [place] Comment on above: TRIAGE Start: 05-06-2023 End: 05-06-2023 ambulatory MD Sammie Gonzalez Work Phone: [facility] Work Phone: Start: 05-06-2023 End: 05-06-2023 Patient encounter procedure MD Sammie Gonzalez Work Phone: [facility]MRI [facility] [place] Work Phone: Start: 04-29-2023 End: 04-29-2023 ambulatory MD Sammie Gonzalez Work Phone: [facility] Work Phone: Start: 04-29-2023 End: 04-29-2023 Patient encounter procedure MD Sammie Gonzalez Work Phone: [facility] Work Phone: Start: 04-15-2023 End: 04-15-2023 ambulatory MD Sammie Gonzalez Work Phone: [facility] Work Phone: Start: 04-15-2023 End: 04-15-2023 Patient encounter procedure MD Sammie Gonzalez Work Phone: [facility] Start: 04-13-2023 Rocio Wood MD Work Phone: Rheumatology Comment on above: Refill Request Start: 04-13-2023 Refill Zeinab Wood MD Work Phone: Rheumatology Comment on above: Refill Request Start: 04-06-2023 End: 04-06-2023 Patient encounter procedure MD Sammie Gonzalez Work Phone: [facility]Nuc Med [place] Work Phone: Start: 03-31-2023 End: 03-31-2023 ambulatory Russell Pattenpiedad Other [employer] Other Start: 03-31-2023 Patient encounter procedure Russell Shields [facility] Start: 03-07-2023 Refill Zeinab Wood MD Work Phone: Rheumatology Comment on above: Refill Request Start: 01-18-2023 Refill Zeinab Wood MD Work Phone: Rheumatology Comment on above: Refill Request Start: 12-17-2022 End: 12-17-2022 ambulatory Elyssa Gomes Other [employer] Other Start: 12-17-2022 Office outpatient visit 15 minutes Elyssa Gomes [facility] Start: 12-11-2022 ambulatory Zeinab Wood MD [...] Sammie Gonzalez Work Phone: [facility] Start: 09-24-2022 End: 09-24-2022 ambulatory MD Sammie Gonzalez Work Phone: [facility] Work Phone: Start: 09-24-2022 Office outpatient visit 15 minutes Elyssa Calvmary [facility] Start: 08-05-2022 Office outpatient visit 15 minutes Elyssa Calvey [facility] Start: 08-05-2022 End: 08-05-2022 ambulatory MD Sammie Gonzalez Work Phone: [facility] Work Phone: Start: 08-05-2022 End: 08-05-2022 Patient encounter procedure MD Sammie Gonzalez Work Phone: [facility] Start: 07-29-2022 End: 07-29-2022 ambulatory MD Sammie Gonzalez Work Phone: [facility] Work Phone: Start: 07-29-2022 End: 07-29-2022 Patient encounter procedure MD Sammie Gonzalez Work Phone: [facility] [place] Start: 07-17-2022 End: 07-17-2022 ambulatory Beti Bowles Other [employer] Other Start: 07-17-2022 Office outpatient visit 15 minutes Beti Bowles [facility] Start: 06-25-2022 End: 06-25-2022 ambulatory Beti Bowles Other [employer] Other Start: 06-25-2022 Office outpatient visit 15 minutes Beti Bowles [facility] Start: 05-10-[address] SAMMIE GONZALEZ Facility : Start: 05-06-2022 End: 05-06-2022 Patient encounter procedure MD Sammie Gonzalez Work Phone: [facility] Start: 05-01-2022 End: 05-01-2022 Patient encounter procedure MD Sammie Gonzalez Work Phone: [facility] [place] Start: 03-31-2022 End: 03-31-2022 ambulatory Beti Bowles Other [employer] Other Start: 03-31-2022 Office outpatient visit 15 minutes Beti Bowles [facility] Start: 03-21-2022 End: 03-21-2022 Discharged Recurring MD Sammie Gonzalez Work Phone: [facility] [place] Start: 01-27-2022 End: 01-27-2022 ambulatory Beti Bowles Other [employer] Other Start: 01-27-2022 Office outpatient visit 15 minutes Beti Bowles [facility] Start: 01-24-2022 End: 01-24-2022 ambulatory Elyssa Gomes Other [employer] Other Start: 01-24-2022 Office outpatient visit 15 minutes Elyssamaxine Gomes [facility] Start: 01-20-2022 End: 01-20-2022 ambulatory Beti Bowles Other [facility] Other Start: 01-20-2022 Office outpatient visit 15 minutes Beti Bowles [facility] Start: 01-20-2022 End: 01-20-2022 Patient encounter procedure Zeinab Wood MD Work Phone: Rheumatology Comment on above: Inflammatory arthrit is (Primary Dx); Myalgia Start: 12-24-2021 End: 12-24-2021 ambulatory Elyssa Calvey Other [facility] Other Start: 12-24-2021 Postop follow up visit related to original px Elyssa Calvey [facility] Start: 12-19-2021 End: 12-19-2021 ambulatory Beti Bowles Other [facility] Other Start: 12-19-2021 Telephone encounter Beti Bowles [facility] Start: 12-02-2021 End: 12-02-2021 ambulatory Beti Bowles Other [facility] Other Start: 12-02-2021 Office outpatient visit 15 minutes Beti Bowles [facility] Start: 11-20-2021 End: 11-20-2021 ambulatory Elyssa Calvey Other [facility] Other Start: 11-20-2021 Postop follow up visit related to original px Elyssa Calvey [facility] Start: 10-08-2021 End: 10-08-2021 ambulatory Elyssa Calvey Other [facility] Other Start: 10-08-2021 Office outpatient visit 25 minutes Elyssa Calvey [facility] Start: 08-28-2021 End: 08-28-2021 ambulatory Elyssa Calvey Other [facility] Other Start: 08-28-2021 Office outpatient visit 25 minutes Elyssa Calvey [facility] Start: 08-12-2021 End: 08-12-2021 ambulatory Elyssa Calvey Other [facility] Other Start: 08-12-2021 Telephone encounter Elyssa Calvey [facility] Start: 06-18-2021 Office outpatient visit 15 minutes Elyssa Calvey [facility] Start: 06-05-2021 Office outpatient visit 15 minutes Beti Bowles [facility] Start: 05-11-2017 End: 05-12-2017 Ambulatory DEFAULT PHYSICIAN Facility:[facility] Procedures Date Procedure Procedure Detail [...] 12/28/2024 9:20 AM EDT Office Visit Rheumatology [address] [place] [address] Zeinab Wood MD [address] [place] [address] 6 month follow up Rheumatology Comment on above: 6 month follow up Start: 05-30-2024 End: 05-30-2024 Patient encounter procedure 05/30/2024 9:40 AM EDT Office Visit Rheumatology [address] [place] [address] Zeinab Wood MD [address] [place] [address] Return in about 8 months (around 05/29/2024) for arthralgias, FM . Rheumatology Comment on above: Return in about 8 mo nths (around 05/29/2024) for arthralgias, FM . Start: 05-15-2024 Covid-19 Vaccine ( season) Covid-19 Vaccine () [facility] Start: 05-15-2024 Influenza vaccination [facility] Start: 04-04-2024 End: 04-04-2024 Admission to same day surgery center 04/04/2024 7:30 AM EDT - 04/04/2024 2:30 PM EDT Surgery Admitting [address] [place] [address] Erik Pineda MD [address] [place] [address] ORBITOCRANIAL TO ANT CRAN FOSSA W/ SUPRAORB [...] AM EDT Hospital Encounter Admitting [address] [place] [address] Erik Pineda MD [address] [place] [address] Intracranial meningioma (HCC) [D32.0] Admitting Comment on above: Intracranial meningi sera (HCC) [D32.0] Start: 03-22-2024 End: 03-22-2024 Patient encounter procedure Pre Anesthesia Comment on above: Preop, ORBITOCRANIAL TO ANT CRAN FOSSA W/ SUPRAORB RIDGE OSTEOTOMY & ELEV FRONT&TEMP LOBE Preop lab and nasal swab Start: 03-04-2024 DIABETES SCREEN DIABETES SCREEN [facility] Start: 03-04-2024 Diabetes Screening Diabetes Screencherelle [facility] Start: 02-05-2024 End: 02-05-2024 ambulatory 02/05/2024 7:00 AM EDT [facility] Neurology Headache [facility] [address] [place] [address] Rachele Fenton, DEEP SEA DIVER.DRIER AND GRINDER TENDER [address] [place] [address] f/u Neurology Headache [facility] Comment on above: f/u Start: 01-29-2024 End: 01-29-2024 Patient encounter procedure [facility] Comment on above: R Sphenoid Wing Meni ngioma Start: 01-21-2024 End: 01-21-2024 ambulatory 01/21/2024 2:30 PM EDT [facility] [address] [place] [address] Montse Lou DO, PhD [address] [place] [address] Check up for headaches Pending Sale To [facility] Comment on above: Check up for headach es Start: 09-14-2023 Behavioral Health Screening Behavioral Health Screening [facility] Start: 09-14-2023 Depression Assessment Depression Ass essment [facility] Start: 05-15-2023 Covid-19 Vaccine ( season) Covid-19 Vaccine () [facility] Start: 05-15-2023 Influenza vaccination C [facility] Start: 2022 COLOGUARD (FIT-DNA) COLOGUARD (FIT-D NA) [facility] Start: 2022 Colonoscopy COLONOSCOPY [facility] Start: 2022 COLORECTAL CANCER SCREENING COLORECTAL CANCER SCREENING [facility] Start: [address] COLONOGRAPHY [facility] Start: 2022 FECAL OCCULT BLOOD FECAL OCCULT BLOO D [facility] Start: 2022 Lipid 1996 panel - Serum or Plasma Lipid Screening [facility] Start: 2022 Lipid panel Lipid Screening [facility] Start: 2022 LIPID SCREEN LIPID SCREEN [facility] Start: 2022 Screening for malign ant neoplasm of colon [facility] Start: 2022 SIGMOIDOSCOPY SIGMOIDOSCOPY [facility] Start: 09-14-2022 DEPRESSION ASSESSMENT DEPRESSION ASS ESSMENT [facility] Start: 05-06-2022 Plain X-ray of right wrist XR wrist RT min 3V* [facility] Start: 05-06-2022 End: 05-06-2022 Patient encounter procedure Departed [facility] Start: 05-01-2022 End: 05-01-2022 Patient encounter procedure Departed [facility]-Lab [facility] [place] Start: 03-01-2022 Adult depression screening assessment DEPRESSION SCREENING [facility] Start: 07-04-2021 Urine microalbumin profile DTaP,Tdap,Td Vaccine (1 - Tdap) [facility] Start: 03-21-2021 COVID-19 VACCINE (3 - Booster for Pfizer series) COVID-19 VACCINE (3 - Booster for Pfizer series) [facility] Start: 03-21-2021 COVID-19 VACCINE (3 - Pfizer series) COVID-19 VACCINE (3 - Pfizer series) [facility] Start: 02-21-2021 COVID-19 VACCINE (3 - Pfizer risk 4-dose series) COVID-19 VACCINE (3 - Pfizer risk 4-dose series) [facility] Start: 02-21-2021 COVID-19 VACCINE (3 - Pfizer risk series) COVID-19 VACCINE (3 - Pfizer risk series) [facility] Start: 2017 Mammography [facility] Start: 2017 Screening for malign ant neoplasm of breast [facility] Start: 2007 HPV TESTING HPV TESTING [facility] Start: 2007 Screening for malign ant neoplasm of cervix [facility] Start: 1998 PAP TESTING PAP TESTING [facility] Start: 1998 Screening for malign ant neoplasm of cervix [facility] Start: 1996 Hepatitis B Vaccine (1 of 3 - 19+ 3-dose series) Hepatitis B Vaccine (1 of 3 - 19+ 3-dose series) [facility] Start: 1996 SHINGRIX VACCINE (1 of 2) SHINGRIX VACCINE (1 of 2) [facility] Start: 1996 Urine microalbumin profile [facility] Start: 1995 Anxiety Screening Anxiety Screening [facility] Start: 1995 Depression Screening Depression Scre ening [facility] Start: 1983 PNEUMOCOCCAL (1 - PCV) PNEUMOCOCCAL (1 - PCV) [facility] Start: 1977 HEPATITIS B (1 of 3 - 3-dose series) HEPATITIS B (1 of 3 - 3-dose series) [facility] Start: 1977 Hepatitis B Vaccine (1 of 3 - 3-dose series) Hepatitis B Vaccine (1 of 3 - 3-dose series) [facility] Start: 1977 Screening for malign ant neoplasm of colon [facility] Bacteria identified in Urine by Culture Urine Culture [facility] Insulin [Units/volum e] in Serum or Plasma [facility] MR Skull base WO and W contrast IV MRI SKULL BASE WO/W IVCON Radiology Routine Benign neoplasm of meninges (HCC) 01/29/2024 1:56 PM EDT [facility] Work Phone: [facility] Immunizations Immunization Date Immunization Notes Care Provider Fa kisha 06-18-2022 Influenza, injectabl e, Madin [place] Canine Kidney, preservative free, quadrivalent Estevan Polanco INVESTMENT STRATEGIST Work Phone: [facility] 06-18-2022 influenza virus vaccine, unspecified formulation Fahad Corey MD Work Phone: [facility] 07-12-2021 influenza, injectabl e, quadrivalent, preservative free Estevan Polanco INVESTMENT STRATEGIST Work Phone: [facility] 07-03-2021 tetanus and diphther ia toxoids, adsorbed, preservative free, for adult use (5 Lf of tetanus toxoid and 2 Lf of diphtheria toxoid) Estevan Polanco INVESTMENT STRATEGIST Work Phone: [facility] 05-15-2021 Kenalog -40 mg Beti Neva rice Other [facility] Other 04-10-2021 Kenalog -40 mg Beti Neva rice Other [facility] Other 01-24-2021 COVID-19 mRNA, Comirnaty (Pfizer) MD Sammie Gonzalez Work Phone: [facility] 01-02-2021 COVID-19 mRNA Comirnaty (Pfizer) MD Sammie Gonzalez Work Phone: [facility] 11-15-2020 Kenalog -40 mg Betimariella rice Other [facility] Other 07-04-2020 Influenza, injectabl e, Madin [place] Canine Kidney, preservative free, quadrivalent Estevan Polanco INVESTMENT STRATEGIST Work Phone: [facility] 03-08-2020 Gel-Syn Beti Kelsie y Other [facility] Other 03-01-2020 Gel-Syn Beti Kearne y Other [facility] Other 02-16-2020 Gel-Syn Beti Kearne y Other [facility] Other 01-26-2020 Kenalog -40 mg Beti Kear dwayne Other [facility] Other 02-02-2019 hepatitis A vaccine, adult dosage Estevan Polanco INVESTMENT STRATEGIST Work Phone: [facility] 08-11-2017 Theraputic Injection Shareefe r Jelena Other [facility] Other 08-04-2017 Theraputic Injection Jennife r Comal Other [facility] Other 07-07-2017 Kenalog -40 mg Beti Kear dwayne Other [facility] Other 06-23-2017 influenza virus vaccine, unspecified formulation Estevan Polanco INVESTMENT STRATEGIST Work Phone: [facility] 04-09-2017 Kenalog -40 mg Beti Kear dwayne Other [facility] Other 12-11-2016 Kenalog -40 mg Beti Kear dwayne Other [facility] Other 09-29-2014 influenza, injectabl e, quadrivalent, contains preservative Beti Jelena Other [facility] 08-30-2014 influenza, injectabl e, quadrivalent, preservative free Estevan Polanco INVESTMENT STRATEGIST Work Phone: [facility] Healthcare Payers Date Payer Category Payer Medicare (Managed Care) AMOS ADKINS [id number] 2024 Medicare [id number] 2024 Unknown 2024 Medicaid [id number] 2024 Unknown [id number] 2023 Self-pay [id number] 2023 Medicaid [id number] 2009 Medicare MEDICARE MEDICAR E A AND B [id number] 2009-Present [phone] [place] [address] Medicare [id number] 2009 Medicare [id number]. [id number] 1977 Unknown [id number] 2.16840.1.586483.3.579.2. 593 1977 Unknown [id number] .[id number]. 593 1977 Unknown [id number] 2.16.840.1.920880.3.579.2. 1259 1977 Unknown [id number] 2.16.840.1.281823.3.579.2. 1259 1977 Unknown [id number] 2.16.840.1.969790.3.579.2. 1259 1977 Unknown [id number] 2.16.840.1.553651.3.579.2. 196 1977 Unknown [id number] 2.16.840.1.280395.3.579.2. 196 1977 Unknown [id number] 2.16.840.1.769646.3.579.2. 196 1977 Unknown [id number] 2.16.840.1.564638.3.579.2. 196 1977 Unknown [id number] 2.16.840.1.410823.3.579.2. 196 1977 Unknown [id number] 2.16.840.1.177684.3.579.2. 196 1959 Medicare [id number] 2.16.840.1.461049.19 1959 Unknown [id number] Unknown [id number] 2.16.840.1.703755.3.579.2. 531 Unknown [id number] 2.16.840.1.251247.3.579.2. 531 Unknown [id number] 2.16.840.1.590998.3.579.2. 531 Unknown [id number] 2.16840.1.650816.3.579.2. 531 Unknown [id number] 2.16840.1.842574.3.579.2. 531 Unknown [id number] 2.16840.1.513990.3.579.2. 531 Social History Date Type Detail Facility Start: 03-04-2021 End: 03-25-2023 Tobacco smoking status NHIS Ex-smoker [facility] Start: 03-04-2021 End: 09-28-2023 Tobacco use and exposure Smokeless tobacco non-user [facility] Start: 1975 Sex Assigned At Female [facility] Start: 01-10-2022 End: 01-20-2022 Exposure to SARS-CoV-2 (event) Not sure [facility] Start: 09-22-2022 End: 02-01-2024 Sex Assigned At [facility] History of tobacco use Current smoker [facility] Start: 09-22-2022 End: 02-01-2024 History of Social function [facility] Adult Depression Screening Assessment 1 [facility] Start: 02-25-2021 Gender identity Identifies as female gender (finding) [facility] Start: 02-25-2021 Sexual orientation Heterosexual (fin ding) [facility] Start: 06-01-2023 End: 07-13-2024 Alcohol intake Current drinker of alcohol (finding) [facility] History of tobacco use Cigarette Smoker [facility] Start: 03-25-2023 Tobacco Comment >10 years sin e last smoked [facility] Start: 03-25-2023 Alcohol Comment caffeine: stackers N [facility] Start: 1977 Sex assigned at Not on file [facility] Medical Equipment Procedure Code Equipment Code Equipment Origin al Text Equipment Identifier Dates Start: 03-10-2023 Clinical Notes 03-04-2021 to 07-13-2024 Estevan Polanco NP - 07/13/2024 5:30 PM Zeinab Rosen MD - 05/30/2024 9:52 AM EDTTelephone Encounter - Eun Stanford APRN.DRIER AND GRINDER TENDER - 05/26/2024 10:59 AM Vanessa Jernigan MD [...] [] Dental visit in past 12 months [facility] services Additional Comments: pt has not taken [...] tablet; Refill: 0 documented in this encounter [facility] 05-30-2024 Note HNO ID: [id number] Author: ZEINAB WOOD MD Service: ? Author [...] and remote event (more content not included)... [facility] 05-30-2024 History of Present illness Narrative Kourtney [...] No documented in this encounter [facility] 05-26-2024 Telephone encounter Note The following approved medication requests have been transmitted electronically. Requested Prescriptions Signed Prescriptions Disp Refills methocarbamol (ROBAXIN) 500 mg tablet 45 tablet 2 Sig: Take 1 tablet by mouth two times a day as needed. Authorizing Provider: EUN STANFORD APRN.CNP [facility] 05-26-2024 Miscellaneous Notes The following [...] as needed. Pharmacy Name: [facility] documented in this encounter [facility] 05-26-2024 Telephone encounter Note Physician: [...] day as needed. Pharmacy Name: [facility] 03-25-2024 Telephone encounter Note The following approved medication requests have been transmitted electronically. Requested Prescriptions Pending Prescriptions Disp Refills predniSONE (DELTASONE) 5 mg tablet [Pharmacy Med Name: prednisone 5 mg tablet] 60 tablet 3 Sig: TAKE 1 TO 2 TABLETS BY MOUTH EVERY DAY eZinab Wood MD [facility] 03-25-2024 Miscellaneous Notes The following [...] 365 Days Visit Type Date Time Department [facility] 05/30/2024 9:40 AM [facility] Last Ophthalmology Check for Plaquenil [...] NASAL [SQSAPCR] 02/03/24 05/04/24 02/03/24 Auth. provider: Eirk Pineda MD Assoc. diagnoses: Intracranial meningioma (HCC), Preop testing TYPE AND SCREEN,30 DAY [[id number]] 02/03/24 05/04/24 02/03/24 Auth. provider: Erik Pineda MD Assoc. diagnoses: Intracranial meningioma (HCC), Preop testing documented in this encounter [facility] 03-25-2024 Telephone encounter Note No [...] Days Visit Type Date Time Department [facility] 05/30/2024 9:40 AM [facility] Last Ophthalmology Check for Plaquenil [...] (HCC), Preop testing TYPE AND SCREEN,30 DAY [[id number]] 02/03/24 05/04/24 02/03/24 Auth. provider: Erik Pineda MD Assoc. diagnoses: Intracranial meningioma (HCC), Preop testing [facility] 03-23-2024 Telephone encounter Note Patient last seen 02/05/2024. [facility] 03-23-2024 Miscellaneous Notes Patient last seen 02/05/2024. documented in this encounter [facility] 03-08-2024 Telephone encounter Note ADDENDUM: March 08, 2024 2:39 PM Distance Health Visit on 02/02/2024 including the details for the patient's surgery was faxed to Moira DONOVAN ( [facility]) . Mario Alberto Phillips RN, Photovoltaic Technician [facility] 03-08-2024 Miscellaneous Notes ADDENDUM: March 08, 2024 2:39 PM Distance Health Visit on 02/02/2024 including the details for the patient's surgery was faxed to Moira DONOVAN ( [facility]) . Mario Alberto Phillips RN, Photovoltaic Technician Spoke with nurse Pizarro. We discussed that the patient's epidural steroid injection on 03/14/2024 for her neck pain (C7/T1) is far out from her surgery for the craniotomy with Dr Erik Pineda (04/04/24). Mario Alberto Phillips RN, Photovoltaic Technician General Call Caller : Moira Ortiz nurse at [facility] Contact Reason for Call : Nurse would like to confirm that pt is allowed to receive steroid injection prior to surgery-80mg of kenalog Patient requesting return call ? Yes documented in this encounter [facility] 03-08-2024 Telephone encounter Note Spoke with nurse Pizarro. We discussed that the patient's epidural steroid injection on 03/14/2024 for her neck pain (C7/T1) is far out from her surgery for the craniotomy with Dr Erik Pineda (04/04/24). Mario Alberto Phillips RN, Photovoltaic Technician [facility] 03-08-2024 Telephone encounter Note General Call Caller : Moira Ortiz nurse at [facility] Contact Reason for Call : Nurse would like to confirm that pt is allowed to receive steroid injection prior to surgery-80mg of kenalog Patient requesting return call ? Yes [facility] 02-10-2024 Telephone encounter Note Images from the original note were not included. Prior Authorization for Medications Requested by ([employer], Pharmacy, Patient Call, Fax) : [facility] Name[facility] Phone # : [phone] Name of Medication : Robaxin Dose : 500 mg Tablet If renewal, auth date expiration: NA Prescribing Provider: Eliceo Last OV: 02/05/2024 with Hamdan Insurance Provider : Medicare / [employer]. Is insurance card scanned in, including Rx info? Medicare card scanned - no RX information Insurance Phone : [employer]eds [place]: NA E-PA? Yes [facility] 02-10-2024 Miscellaneous Notes Images from the original note were not included. Prior Authorization for Medications Requested by ([employer], Pharmacy, Patient Call, Fax) : [facility] Name: [email or web address] Phone # : [phone] Name of Medication : Robaxin Dose : 500 mg Tablet If renewal, auth date expiration: NA Prescribing Provider: Eliceo Last OV: 02/05/2024 with Hamdan Insurance Provider : Medicare / [employer]. Is insurance card scanned in, including Rx info? Medicare card scanned - no RX information Insurance Phone : CoverMy[employer]eds [place]: NA E-PA? Yes documented in this encounter [facility] 02-05-2024 History of Present illness Narrative Images from the original note were not included. Headache Center - Follow up Virtual Visit Patient's headache clinic evaluation was scheduled as a virtual visit using the following platform Acacia Novak was identified by name and and [...] visit. Either the patient or their legal route service representative has been informed of the risks and benefits of -- and alternatives to -- treatment through a remote evaluation and consents to proceed with the evaluation remotely. Accompanied by: Self Primary Problem List: ACTIVE PROBLEM LIST Intracranial Meningioma (Hcc) Chronic Tension-Type Headache, Intractable Chief Complaint: headache follow-up LV: 06/26/23 Dr. Corey Impression and Plan from last visit: Pt [...] these with the patient: yes Rachele Fenton APRN.DRIER AND GRINDER TENDER HEADACHE SCORES: 06/19/2023 02/01/2024 Headache Questions ID [...] soft tissue component identified in the orbit. Word Processor Operator: GUANACO Transcribe Date/Time: Jan 31 2024 3:33P [...] and clear, coherent, and relevant. Short and fpc memory, cognition and general fund of knowledge [...] Rachele Fenton APRN.CNP Headache Section [facility] February 05, 2024 documented in this encounter [facility] 02-05-2024 Note HNO ID: [id number] Author: RACHELE FENTON APRN.CNP Service: ? Author [...] visit. Either the patient or their legal route service representative has been informed of the risks and benefits of -- and alternatives to -- treatment through a remote evaluation and consents to proceed with the evaluation remotely. Accompanied by: Self Primary Problem List: ACTIVE PROBLEM LIST Intracranial Meningioma (Hcc) Chronic Tension-Type Headache, Intractable Chief Complaint: headache follow-up LV: 06/26/23 Dr. Corey Impression and Plan from last visit: Pt [...] Albert Status Asses (more content not included)... [facility] 02-02-2024 Note HNO ID: [id number] Author: VANESSA UGARTE MD Service: ? Author Type: Fellow Type: Progress Notes Filed: 02/02/2024 19:52 Note Text: SECTION OF SKULL BASE SURGERY MINIMALLY INVASIVE CRANIAL BASE AND PITUITARY SURGERY PROGRAM [facility] AND [facility] [place], [facility] CC: Patient Care Team: Sammie Gonzalez MD as PCP - General (Family Medicine) Sammie Gonzalez MD as Referring (Family Medicine) Sammie Gonzalez MD as Referring (Family Medicine) Assessment: Ms Kohlenberg is a very pleasant 48 year old [...] which included preparing to see the patient, [id number] patient care, completing clinical documentation, performing a [...] sphenoid wing without significant change since 05/06/2023. Word Processor Operator: GUANACO Transcribe Date/Time: Jan 31 2024 5:10P [...] axial fast T2 (more content not included)... [facility] 02-02-2024 History of Present illness Narrative Images from the original note were not included. SECTION OF SKULL BASE SURGERY MINIMALLY INVASIVE CRANIAL BASE & PITUITARY SURGERY PROGRAM [facility] & [facility] [place], [facility] CC: Patient Care Team: Sammie Gonzalez MD [...] which included preparing to see the patient, [id number] patient care, completing clinical documentation, performing a [...] sphenoid wing without significant change since 05/06/2023. Word Processor Operator: GUANACO Transcribe Date/Time: Jan 31 2024 5:10P Dictated by : WESTLEY IYER MD This examination was interpreted and the report reviewed and electronically signed by: WESTLEY IYER MD on Jan 31 2024 5:28PM EST Results-Findings * * *Final Report* * * DATE OF EXAM: Jan 29 2024 1:56PM [facility] 0319 - MRI SKULL BASE WO/W [...] tissue mass extending into the of the big data engineer or parapharyngeal spaces. The soft tissue planes of the, retropharyngeal, and prevertebral spaces are maintained. The visualized parotid glands are normal in appearance. Nasopharynx/Oropharynx: The nasopharynx and oropharynx are normal in appearance. Result History documented in this encounter [facility] 02-02-2024 Telephone encounter Note Called the patient confirming virtual appointment today at [address] Vanessa Ugarte ( Skull base fellow from Dr Pineda team). [facility] 02-02-2024 Miscellaneous Notes Called the patient confirming virtual appointment today at [address] Vanessa Ugarte ( Skull base fellow from Dr Pineda team). documented in this encounter [facility] 02-01-2024 Telephone encounter Note Pharmacy requesting refill via Mychart. Last OV: 06/26/2023 Future OV: 02/05/2024 with Rachele Fenton APRN.DRIER AND GRINDER TENDER Last prescribed: 06/26/2023 Requested Prescriptions Pending Prescriptions Disp Refills tiZANidine (ZANAFLEX) 4 mg tablet [Pharmacy Med Name: tizanidine 4 mg tablet] 60 tablet 3 Sig: take 1 tablet by mouth every 8 hours as needed [facility] 02-01-2024 Miscellaneous Notes Pharmacy requesting refill via Mychart. Last OV: 06/26/2023 Future OV: 02/05/2024 with Rachele Fenton APRN.JOSSIE Last prescribed: 06/26/2023 Requested Prescriptions Pending Prescriptions Disp Refills tiZANidine (ZANAFLEX) 4 mg tablet [Pharmacy Med Name: tizanidine 4 mg tablet] 60 tablet 3 Sig: take 1 tablet by mouth every 8 hours as needed documented in this encounter [facility] 01-29-2024 Note HNO ID: [id number] Author: KOFI [place] CT Service: Radiology Author [...] PATIENT PRESENTS WITH AN IMPLANTABLE OR ATTACHED DIRECTOR REACTOR PROJECTS: No RADIOLOGY DEPARTMENT: CT; Exam(s) Completed: Brain STERO PERIPHERAL IV DATA: Not applicable SIGNED BY: KAYLEEN Sharma January 29, 2024 12:53 PM [facility] 01-29-2024 Note HNO ID: [id number] Author: AILYN NEUMANN RT(R) Service: ? Author [...] PATIENT PRESENTS WITH AN IMPLANTABLE OR ATTACHED DIRECTOR REACTOR PROJECTS: No ALLERGIES: Reviewed and unchanged CONTRAST ALLERGY: NO. EXAM: MRI - CONTRAST TYPE: GROUP II PERIPHERAL IV DATA: Ambulatory: A peripheral IV was started in the Left antecubital site with a Angio cath: 22 gauge. RADIOLOGY DEPARTMENT: MR; Exam(s) Completed: Head: Routine Brain SIGNATURE: Ailyn Neumann RDMS, PAULETTE Veras ([facility]) PATIENT NAME: Kourtney Novak DATE: January 29, 2024 TIME: 1:06 PM [facility] 01-29-2024 History of Present illness Narrative Radiology [...] PATIENT PRESENTS WITH AN IMPLANTABLE OR ATTACHED DIRECTOR REACTOR PROJECTS: No RADIOLOGY DEPARTMENT: CT; Exam(s) Completed: Brain STERO PERIPHERAL IV DATA: Not applicable SIGNED BY: KAYLEEN Sharma January 29, 2024 12:53 PM documented in this encounter [facility] 01-29-2024 History of Present illness [...] PATIENT PRESENTS WITH AN IMPLANTABLE OR ATTACHED DIRECTOR REACTOR PROJECTS: No ALLERGIES: Reviewed and unchanged CONTRAST ALLERGY: NO. EXAM: MRI - CONTRAST TYPE: GROUP II PERIPHERAL IV DATA: Ambulatory: A peripheral IV was started in the Left antecubital site with a Angio cath: 22 gauge. RADIOLOGY DEPARTMENT: MR; Exam(s) Completed: Head: Routine Brain SIGNATURE: Ailyn Neumann, EMETERIO, RVT- Eda ([facility]) PATIENT NAME: Kourtney Novak DATE: January 29, 2024 TIME: 1:06 PM documented in this encounter [facility] 01-27-2024 Telephone encounter Note The following approved medication requests have been transmitted electronically. Requested Prescriptions Pending Prescriptions Disp Refills etodolac (LODINE) 400 mg tablet 60 tablet 3 Sig: One tab po bid prn Zeinab Wood MD [facility] 01-27-2024 Miscellaneous Notes The following [...] Days Visit Type Date Time Department [facility] 05/30/2024 9:40 AM [facility] Last Ophthalmology Check for Plaquenil [...] None documented in this encounter [facility] 01-27-2024 Telephone encounter Note Most recent Rheumatology visit: 09/28/2023 (with Zeinab Wood) Rheumatology Care Team: None on file Recent Office Visits - This Specialty 09/28/2023 Inflammatory arthritis Rheumatology Zeinab Wood MD 09/29/2022 Inflammatory arthritis Rheumatology Zeinab Wood MD 01/20/2022 Inflammatory arthritis Rheumatology Zeinab Wood MD Upcoming Rheumatology Appointments - Next 365 Days Visit Type Date Time Department [facility] 05/30/2024 9:40 AM [facility] Last Ophthalmology Check for Plaquenil [...] (Single Instance) Lab Orders None [facility] 01-19-2024 Telephone encounter Note Spoke [...] consent. Both appointments were confirmed. [facility] 01-19-2024 Miscellaneous Notes Spoke with [...] consent. Both appointments were confirmed. Spoke with Kourtney Johnson Kishore today confirming surgery on 04/11/[address] Erik Pineda. Right middle sphenoid wing Preoperative appointments will be scheduled ~ 2 weeks prior to surgery date at a [facility] facility closer to the patient's home. Mario Alberto Phillips RN, Photovoltaic Technician documented in this encounter [facility] 01-19-2024 Telephone encounter Note Spoke with Ms Kourtney Novak today confirming surgery on 04/11/[address] Erik Pineda. Right middle sphenoid wing Preoperative appointments will be scheduled ~ 2 weeks prior to surgery date at a [facility] facility closer to the patient's home. Mario Alberto Phillips RN, Photovoltaic Technician [facility] 01-08-2024 Telephone encounter Note Lab results received from [facility]. Placed in dr Wood folder for review, copy sent to scanning. [facility] 01-08-2024 Miscellaneous Notes Lab results received from [facility]. Placed in dr Wood foldbetty for review, copy sent to scanning. documented in this encounter [facility] 01-05-2024 Telephone encounter Note Spoke with Ms. Kourtney Novak today confirming surgery on Thu03/28/[address] Erik Pineda. Preoperative appointments to be scheduled at a [facility] facility near the patient's home. [facility] 01-05-2024 Miscellaneous Notes Spoke with Ms. Kourtney Novak today confirming surgery on Thu03/28/[address] Erik Pineda. Preoperative appointments to be scheduled at a [facility] facility near the patient's home. documented in this encounter [facility] 01-04-2024 Telephone encounter Note Orders faxed. Confirmation received. [facility] 01-04-2024 Miscellaneous Notes Orders faxed. Confirmation received. Printed labs. Sent MC msg to pt to clarify which [facility] Lab to fax to. Labs/Fax sheet in Michelle's [place] folder. Please fax once clarification is received. Labs are ordered, please print and fax per patient request. Zeinab Wood MD Patient calling Needs 01/01/24 Lab Orders in [facility] please (pended) Also requesting to FAX 01/01/24 Lab Orders to [facility] She will send their FAX # in My Chart documented in this encounter [facility] 01-04-2024 Telephone encounter Note Printed labs. Sent MC msg to pt to clarify which [facility] Lab to fax to. Labs/Fax sheet in Michelle's [place] folder. Please fax once clarification is received. [facility] 01-04-2024 Telephone encounter Note Labs are ordered, please print and fax per patient request. Zeinab Wood MD [facility] 01-04-2024 Telephone encounter Note Patient calling Needs 01/01/24 Lab Orders in [facility] please (pended) Also requesting to FAX 01/01/24 Lab Orders to [facility] She will send their FAX # in My Chart [facility] 12-02-2023 Miscellaneous Notes Called and spoke to patient and she stated she has appointment for eye exam in 01/2024. Called patient and left vm message that eye exam needed and medication sent to pharmacy and if patient had any question please call [phone]. My Chart Message also sent. She needs [...] Days Visit Type Date Time Department [facility] 05/30/2024 9:40 AM [facility] Last Ophthalmology Check for Plaquenil [...] None documented in this encounter [facility] 11-12-2023 Miscellaneous Notes The following [...] Days Visit Type Date Time Department [facility] 05/30/2024 9:40 AM [facility] Last Ophthalmology Check for Plaquenil [...] None documented in this encounter [facility] 11-11-2023 Miscellaneous Notes The following [...] Visit Type Date Time Department [facility] 05/30/2024 9:40 AM [facility] Last Ophthalmology Check for Plaquenil [...] None documented in this encounter [facility] 11-11-2023 Miscellaneous Notes Spoke with Ms.Mandie Alex Novak today following up on the [employer] message from 10/08/2023. She sent a message about having symptoms of blurry vision and was advised to schedule an appointment with ophthalmology. Today the patient stated that the blurry vision was 1 incident and that she did not have any vision changes since. She was made aware to send an update or call for any questions or concerns. Mario Alberto Phillips RN, Photovoltaic Technician documented in this encounter [facility] 11-10-2023 Miscellaneous Notes Most recent Rheumatology visit: 09/28/2023 (with Zeinab Wood) Rheumatology Care Team: None on file Recent Office Visits - This Specialty 09/28/2023 Inflammatory arthritis Rheumatology Zeinab Wood MD 09/29/2022 Inflammatory arthritis Rheumatology Zeinab Wood MD 01/20/2022 Inflammatory arthritis Rheumatology Zeinab Wood MD Upcoming Rheumatology Appointments - Next 365 Days Visit Type Date Time Department [facility] 05/30/2024 9:40 AM [facility] Last Ophthalmology Check for Plaquenil [...] None documented in this encounter [facility] 09-28-2023 Note HNO ID: [id number] Author: ZEINAB WOOD MD Service: ? Author [...] decreased muscle mass. (more content not included)... [facility] 07-06-2023 Miscellaneous Notes Spoke with Ms. Kourtney Novak. We discussed that it is so far out to schedule surgery in March 2024. We discussed option of possible surgery dates. She will be contacted during late December- January 2024 to confirm the date of surgery and schedule the preoperative appointments. Mario Alberto Phillips RN, Photovoltaic Technician General Call Caller : Pt Contact Reason for Call : Pt would like to go forward w scheduling surgery. However, she would like surgery to be scheduled in March 2024, pt would like to discuss further Patient requesting return call ? Yes documented in this encounter [facility] 07-06-2023 Miscellaneous Notes Spoke with Ms. Kourtney Novak. We discussed that it is so far out to schedule surgery in March 2024. We discussed option of possible surgery dates. She will be contacted during late December- January 2024 to confirm the date of surgery and schedule the preoperative appointments. Mario Alberto Phillips RN, Photovoltaic Technician documented in this encounter [facility] 06-30-2023 Instructions Heather Moy APRN.JOSSIE - 06/30/2023 11:30 AM EDT I believe [...] 2024). documented in this encounter [facility] 06-30-2023 Nurse Note Additional intake questions: Has the patient had fever, nausea, vomiting, diarrhea, constipation, fatigue for > 1 week? No Does the patient have a decreased appetite? No Does patient want to see a Fiber Designer? No (yes to any of above refer patient to schedulers for dietitian appointment) ) Does patient have any new or increased numbness or tingling of extremities? No Is patient interested in fertility information? No Does patient need any prescription refills? No Does patient have an advanced directive in place? No, Patient referred to [facility] documented in this encounter [facility] 06-30-2023 Note HNO ID: [id number] Author: Erik Pineda MD Service: ? Author Type: Physician Type: Progress Notes Filed: 07/11/2023 2:03 PM Note Text: SECTION OF SKULL BASE SURGERY MINIMALLY INVASIVE CRANIAL BASE AND PITUITARY SURGERY PROGRAM [facility] AND [facility] [place], [facility] CC: Patient Care Team: Sammie Gonzalez MD as PCP - General (Family Medicine) Montse Lou DO - [facility] ASSESSMENT: In summary, Kourtney Novak is [...] and follow-up via virtual visit. Heather Moy APRN.DRIER AND GRINDER TENDER I have reviewed the progess note obtained [...] which included preparing to see the patient, [id number] patient care, completing clinical documentation, performing a [...] Complaint of headaches, follows with Dr. Fahad Corey (on Zanaflex AND Nortriptyline) No complaint of [...] tablet by mout (more content not included)... [facility] 06-30-2023 History of Present illness Narrative Images from the original note were not included. SECTION OF SKULL BASE SURGERY MINIMALLY INVASIVE CRANIAL BASE & PITUITARY SURGERY PROGRAM [facility] & [facility] [place], [facility] CC: Patient Care Team: Sammie Gonzalez MD as PCP - General (Family Medicine) Montse Lou DO - [facility] ASSESSMENT: In summary, Kourtney Novak is [...] and follow-up via virtual visit. Heather Moy APRN.DRIER AND GRINDER TENDER I have reviewed the progess note obtained [...] which included preparing to see the patient, [id number] patient care, completing clinical documentation, performing a [...] Complaint of headaches, follows with Dr. Fahad Corey (on Zanaflex & Nortriptyline) No complaint of [...] exam. documented in this encounter [facility] 06-26-2023 Instructions Fahad Corey MD - 06/26/2023 5:39 PM EDT New Preventative Medication: Nortriptyline 25 mg: Take 1 at bedtime every night. New Rescue Medication: Tizanidine 4 mg: Take 1 every 8 hours as needed for headache. Please avoid taking the Excedrin and Fioricet. These medications are high risk for worsening headaches over time due to rebound effects. Fahad Corey MD June 26, 2023 5:39 PM documented in this encounter [facility] 06-26-2023 Note HNO ID: [id number] Author: Fahad Corey MD Service: ? Author Type: Physician Type: Progress Notes Filed: 06/26/2023 5:42 PM Note Text: HEADACHE MEDICINE NEW EVALUATION June 26, 2023 5:00 PM I have communicated my name and active licensure. The patient's identity and physical location were verified at the time of this visit. Either the patient or their legal route service representative has been informed of the risks [...] turgor normal, no (more content not included)... [facility] 06-26-2023 History of Present illness Narrative HEADACHE MEDICINE NEW EVALUATION June 26, 2023 5:00 PM I have communicated my name and active licensure. The patient's identity and physical location were verified at the time of this visit. Either the patient or their legal route service representative has been informed of the risks [...] She will follow-up in 3 months. Fahad Corey MD June 26, 2023 5:36 PM documented in this encounter [facility] 06-01-2023 Note HNO ID: [id number] Author: Montse Lou DO, PhD Service: ? Author Type: Physician Type: Progress Notes Filed: 06/01/2023 9:24 AM Note Text: [facility] New Patient Consultation Referred by Sammie Gonzalez MD [address] [place] [address] Diagnosis: Multiple meningioma's with interval growth since 2016. Subjective History of Present Illness: Kourtney Novak is a 47 year old right handed female referred to [facility] by her PCP due to interval growth of known meningioma's since 2016. She started noticing imbalance a few months ago, leaning and veering to her right. She takes Depo shot per NON DESTRUCTIVE TESTING SPECIALIST. 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 She lives in [place]. Interval History: 06/01/2023: Patient presents to establish care with [facility] and to discuss treatment [...] has no known (more content not included)... [facility] 05-13-2023 Miscellaneous Notes Time Frame: Next available Provider: Carmine (possible [facility]) Referring: self Please instruct patient to hand carry/ upload images prior to appt Images also requested via Electronically Dx: Multiple meningiomas with interval growth Multiple meningiomas with interval growth since 2015. MRI done for dizziness. [facility] [place] [address] [place] [address] MRI Report Signed Patient: Kourtney Novak MR#: [id number] : 1975 Acct:[id number] Age/Sex: 47 / F ADM Date: 05/06/23 Loc: MR Room: Type: [facility] Attending Dr: Sammie Gonzalez MD Copies to: [...] matter. documented in this encounter [facility] 04-13-2023 Miscellaneous Notes The following [...] Days Visit Type Date Time Department [facility] 09/28/2023 3:00 PM [facility] Last Ophthalmology Check for Plaquenil [...] None documented in this encounter [facility] 04-13-2023 Miscellaneous Notes The following approved medication requests have been transmitted electronically. Requested Prescriptions Pending Prescriptions Disp Refills hydrOXYchloroQUINE (PLAQUENIL) 200 mg tablet [Pharmacy Med Name: hydroxychloroquine 200 mg tablet] 60 tablet 6 Sig: TAKE 1 TABLET BY MOUTH TWICE DAILY Zeinab Wood MD Scan on 07/15/2022 1:08 PM by Provider, Aram, SOLISC: Consultation - Ophthalmology Most recent Rheumatology visit: 09/29/2022 (with Zeinab Wood) Recent Office Visits - This Specialty 09/29/2022 Inflammatory arthritis Rheumatology Zeinab Wood MD 01/20/2022 Inflammatory arthritis Rheumatology Zeinab Wood MD 07/04/2021 Pain in joint, multiple sites Rheumatology Zeinab Wood MD Upcoming Rheumatology Appointments - Next 365 Days Visit Type Date Time Department [facility] 09/28/2023 3:00 PM [facility] Last Ophthalmology Check for Plaquenil [...] None documented in this encounter [facility] 03-31-2023 Evaluation note Encounter Date [...] Obtain labs from Dr. Gonzalez regarding diabetes [place] [employer] Other 06-26-2023 Miscellaneous Notes* Telephone Encounter - Tory [place] LPN - 03/09/2023 11:55 AM EDT Refill to soon refilled 01/19/2023 30 capsules with 3 refilles documented in this encounter[facility] Miscellaneous Notes* Telephone Encounter - [...] Days Visit Type Date Time Department [facility] 06/26/2023 10:40 AM [facility] Last Ophthalmology Check for Plaquenil [...] Orders None documented in this encounterUniversity [facility] Evaluation note* Encounter Date Diagnosis Assessment Notes Treatment Notes Treatment Clinical Notes Dec, Osteochondrosis of lunate of right wrist (ICD-10 - 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 May repeat ulnar wrist cortisone injection when needed. Patient instructed on the use of Voltaren Gel in the meantime Dec, Right wrist pain (ICD-10 - M25.531) Dec, Other specified postprocedural states (ICD-10 - Z98.890) [facility] Other 03-30-2023 Miscellaneous Notes* Addendum Note - [...] Wood MD documented in this encounter[facility] Miscellaneous Notes* Telephone Encounter - [...] Thank you. documented in this encounterUniversity [facility]23 History of Present illness Narrative* [...] Glands: No documented in this encounterUniversity [facility]-2023 Evaluation note* Encounter Date Diagnosis Assessment Notes Treatment Notes Treatment Clinical Notes Sep, Osteochondrosis of lunate of right wrist (ICD-10 - M92.211) Sep, Right wrist pain (ICD-10 - M25.531) Right ulnar wrist joint/TFCC injected with cortisone under sterile technique, patient tolerated well Sep, Other specified postprocedural states (ICD-10 - Z98.890) [facility] Other 11-22-2022 Evaluation note* Encounter Date Diagnosis Assessment Notes Treatment Notes Treatment Clinical Notes Jul, Osteochondrosis of lunate of right wrist (ICD-10 - 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 Decrease to 81 mg Aspirin once per day x 3 months then begin to wean off. Jul, Other specified postprocedural states (ICD-10 - Z98.890) [facility] Other 11-03-2022 Evaluation note* Encounter Date Diagnosis [...] pain of right shoulder (ICD-10 - M25.511) [facility] Other 10-12-2022 Evaluation note* Encounter Date Diagnosis [...] pain of left shoulder (ICD-10 - M25.512) [facility] Other 07-18-2022 Evaluation note* Encounter Date Diagnosis [...] pain of right shoulder (ICD-10 - M25.511) [facility] Other 05-16-2022 Evaluation note* Encounter Date Diagnosis [...] will order an MRI for futher review. [facility] Other 05-13-2022 Evaluation note* Encounter Date Diagnosis Assessment Notes Treatment Notes Treatment Clinical Notes January, Osteochondrosis of lunate of right wrist (ICD-10 - M92.211) January, Right wrist pain (ICD-10 - M25.531) Right ulnar wrist injected with cortisone under sterile technique, patient tolerated well January, Other specified postprocedural states (ICD-10 - Z98.890) [facility] Other 05-09-2022 Evaluation note* Encounter Date Diagnosis [...] oral prednisone as prescribed by Neha ANDERSON. [facility] Other 05-09-2022 History of Present illness Narrative* [...] to side effects F/U:6m Check following: -none Zeianb Wood MD documented in this encounterUniversity [facility] Evaluation note* Encounter Date Diagnosis [...] Other specified postprocedural states (ICD-10 - Z98.890) [facility] Other 03-21-2022 Evaluation note* Encounter Date Diagnosis [...] pain of right shoulder (ICD-10 - M25.511) [facility] Other 03-09-2022 Evaluation note* Encounter Date Diagnosis Assessment Notes Treatment Notes Treatment Clinical Notes Nov, Osteochondrosis of lunate of right wrist (ICD-10 - M92.211) Patient instructed on gentle ROM exercises. Continue Aspirin. 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 Risks and benefits of procedure explained to patient; patient verbalizes understanding. 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 Patient would like to proceed with surgical treatment in October [facility] Other 11-29-2021 Evaluation note* Encounter Date Diagnosis Assessment Notes Treatment Notes Treatment Clinical Notes Jul, Carpal tunnel syndrome of right wrist (ICD-10 - G56.01) [facility] Other 10-05-2021 Evaluation note* Encounter Date Diagnosis [...] brace as needed for pain and support [facility] Other 09-22-2021 Evaluation note* Encounter Date Diagnosis [...] of right supraspinatus tendon (ICD-10 - M75.101) [facility] Other 06-21-2021 NoteHNO ID: [id number] Author: Hu Blankenship Service: Radiology Author Type: Groundwater Monitoring Technician Type: Progress Notes Filed: 03/04/2021 1:11 PM [...] BY: Hu Blankenship March 04, 2021 1:10 [facility] Diagnosis Inflammatory arthritis- Primary Unspecified inflammatory polyarthropathy Myalgia Mylagia and myositis, unspecified [facility] noteNo InformationNort[employer] Other evaluation noteNo assessment information available [facility] Work Phone: evaluation note* Diagnosis Inflammatory arthritis- Primary Unspecified inflammatory polyarthropathy Myalgia Mylagia and myositis, unspecified Fibromyalgia Mylagia and myositis, unspecified [facility]* Diagnosis Medication overuse headache- Primary Drug induced headache, not elsewhere classified Brain mass Unspecified condition of brain Meningioma (HCC) Benign neoplasm of cerebral meninges Chronic daily headache Headache [facility]* Diagnosis Intracranial meningioma (HCC)- Primary Benign neoplasm of cerebral meninges [facility]* Diagnosis Onset Date Resolution Status Osteochondrosis of lunate of right wrist acute Right wrist pain acute [facility] Work Phone: evaluation note* Diagnosis 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) Benign neoplasm of cerebral meninges documented [facility] Diagnosis Benign neoplasm of meninges (HCC) Benign neoplasm of cerebral meninges documented in this [facility]* Diagnosis Chronic daily headache Headache documented in this [facility]* Diagnosis Intracranial meningioma (HCC)- Primary Benign neoplasm of cerebral meninges documented [facility] this [facility]* Diagnosis Meningioma (HCC)- Primary Benign neoplasm of cerebral meninges Chronic daily headache Headache Intracranial meningioma (HCC) Benign neoplasm of cerebral meninges Preop testing Preoperative examination, unspecified [facility] Onset Date Resolution Status Osteochondrosis of lunate of right wrist acute Right wrist pain acute Acute pain of right shoulder acute Biceps tendonitis acute [facility] Work Phone: Evaluation note* Diagnosis Onset Date Resolution Status Acute pain of right shoulder acute Biceps tendonitis acute Osteochondrosis of lunate of right wrist acute Right wrist pain acute [facility] Work Phone: Evaluation note* Diagnosis Inflammatory arthritis- Primary Unspecified inflammatory polyarthropathy Fibromyalgia Mylagia and myositis, unspecified Medication monitoring encounter Encounter for therapeutic drug monitoring documented [facility] this [facility]* Diagnosis Tooth infection- Primary Acute apical periodontitis of pulpal origin documented in this encounter [facility] HealthcareHistory general Narrative - Reported* Type Description Date Medical History GERD Medical History gastroparesis Medical History bipolar Medical History DM II Surgical History carpal tunnel Surgical History cystectomy-left breast Surgical History right neuroplasty, ulnar nerve at elbow 08/2020 Hospitalization History see above Hospitalization History COPD [facility] Other [facility] general Narrative - Reported* Type Description Date Medical History GERD Medical History gastroparesis Medical History bipolar Medical History DM II Medical History COPD Surgical History carpal tunnel Surgical History cystectomy-left breast Surgical History right neuroplasty, ulnar nerve at elbow 08/2020 Surgical History appendectomy 09/2021 Hospitalization History see above Hospitalization History COPD [facility] Other [facility] general Narrative - Reported* Type Description Date Medical History GERD Medical History gastroparesis Medical History bipolar Medical History DM II Medical History COPD Surgical History carpal tunnel Surgical History cystectomy-left breast Surgical History right neuroplasty, ulnar nerve at elbow 08/2020 Surgical History appendectomy 09/2021 Surgical History right wrist PIN/core decompress ion Hospitalization History see above Hospitalization History [employer] Other [facility] general Narrative - Reported* Type Description Date Medical History GERD Medical History gastroparesis Medical History bipolar Medical History DM II Medical History COPD Surgical History carpal tunnel Surgical History cystectomy-left breast Surgical History right neuroplasty, ulnar nerve at elbow 08/2020 Surgical History appendectomy 09/2021 Surgical History right wrist PIN/core decompress ion Surgical History cubital tunnel Hospitalization History see above Hospitalization History COPD [facility] Other Summary Purpose Family History No Family [...] section and content) DATE CREATED AUTHOR 03/10/2018 [facility] DATE CREATED AUTHOR AUTHOR'S ORGANIZ ATION 03/05/2021 [facility] DATE CREATED AUTHOR AUTHOR'S ORGANIZ ATION 10/13/2022 [facility] DATE CREATED AUTHOR AUTHOR'S ORGANIZ ATION 02/01/2024 [facility] DATE CREATED AUTHOR AUTHOR'S ORGANIZ ATION 05/31/2024 [facility] DATE CREATED AUTHOR AUTHOR'S ORGANIZ ATION 07/03/2024 [facility] DATE CREATED AUTHOR AUTHOR'S ORGANIZ ATION 07/15/2024 [facility] DATE CREATED AUTHOR AUTHOR'S ORGANIZ ATION 07/23/2024 [facility] Source Comments (unrecognize d section and content) In the event this informatio n is protected by the Federal Confidentiality of Alcohol and Drug Abuse Patient Records regulations: The Federal rules restrict any use of the information to criminally investigate or prosecute any alcohol or drug abuse patient.[facility] the event this information is protected by the Federal Confidentiality of Alcohol and Drug Abuse Patient Records regulations: The Federal rules restrict any use of the information to criminally investigate or prosecute any alcohol or drug abuse patient.[facility] Center[facility] the event this information is protected by the Federal Confidentiality of Alcohol and Drug Abuse Patient Records regulations: The Federal rules restrict any use of the information to criminally investigate or prosecute any alcohol or drug abuse patient.[facility] CenterIn the event this information is protected by the Federal Confidentiality of Alcohol and Drug Abuse Patient Records regulations: The Federal rules restrict any use of the information to criminally investigate or prosecute any alcohol or drug abuse patient.[facility] CenterIn the event this information is protected by the Federal Confidentiality of Alcohol and Drug Abuse Patient Records regulations: The Federal rules restrict any use of the information to criminally investigate or prosecute any alcohol or drug abuse patient.[facility] CenterIn the event this information is protected by the Federal Confidentiality of Alcohol and Drug Abuse Patient Records regulations: The Federal rules restrict any use of the information to criminally investigate or prosecute any alcohol or drug abuse patient.[facility] CenterIn the event this information is protected by the Federal Confidentiality of Alcohol and Drug Abuse Patient Records regulations: The Federal rules restrict any use of the information to criminally investigate or prosecute any alcohol or drug abuse patient.[facility] CenterIn the event this information is [...] any alcohol or drug abuse patient.[facility] CenterIn the event this information is protected by the Federal Confidentiality of Alcohol and Drug Abuse Patient Records regulations: The Federal rules restrict any use of the information to criminally investigate or prosecute any alcohol or drug abuse patient.[facility] CenterIn the event this information is protected by the Federal Confidentiality of Alcohol and Drug Abuse Patient Records regulations: The Federal rules restrict any use of the information to criminally investigate or prosecute any alcohol or drug abuse patient.[facility] CenterIn the event this information is protected by the Federal Confidentiality of Alcohol and Drug Abuse Patient Records regulations: The Federal rules restrict any use of the information to criminally investigate or prosecute any alcohol or drug abuse patient.[facility] CenterIn the event this information is protected by the Federal Confidentiality of Alcohol and Drug Abuse Patient Records regulations: The Federal rules restrict any use of the information to criminally investigate or prosecute any alcohol or drug abuse patient.[facility] CenterIn the event this information is protected by the Federal Confidentiality of Alcohol and Drug Abuse Patient Records regulations: The Federal rules restrict any use of the information to criminally investigate or prosecute any alcohol or drug abuse patient.[facility] CenterIn the event this information is protected by the Federal Confidentiality of Alcohol and Drug Abuse Patient Records regulations: The Federal rules restrict any use of the information to criminally investigate or prosecute any alcohol or drug abuse patient.[facility] CenterIn the event this information is protected by the Federal Confidentiality of Alcohol and Drug Abuse Patient Records regulations: The Federal rules restrict any use of the information to criminally investigate or prosecute any alcohol or drug abuse patient.[facility] CenterIn the event this information is protected by the Federal Confidentiality of Alcohol and Drug Abuse Patient Records regulations: The Federal rules restrict any use of the information to criminally investigate or prosecute any alcohol or drug abuse patient.[facility] CenterIn the event this information is protected by the Federal Confidentiality of Alcohol and Drug Abuse Patient Records regulations: The Federal rules restrict any use of the information to criminally investigate or prosecute any alcohol or drug abuse patient.[facility] CenterIn the event this information is protected by the Federal Confidentiality of Alcohol and Drug Abuse Patient Records regulations: The Federal rules restrict any use of the information to criminally investigate or prosecute any alcohol or drug abuse patient.[facility] CenterIn the event this information is protected by the Federal Confidentiality of Alcohol and Drug Abuse Patient Records regulations: The Federal rules restrict any use of the information to criminally investigate or prosecute any alcohol or drug abuse patient.[facility] CenterIn the event this information is protected by the Federal Confidentiality of Alcohol and Drug Abuse Patient Records regulations: The Federal rules restrict any use of the information to criminally investigate or prosecute any alcohol or drug abuse patient.[facility] CenterIn the event this information is protected by the Federal Confidentiality of Alcohol and Drug Abuse Patient Records regulations: The Federal rules restrict any use of the information to criminally investigate or prosecute any alcohol or drug abuse patient.[facility] CenterIn the event this information is protected by the Federal Confidentiality of Alcohol and Drug Abuse Patient Records regulations: The Federal rules restrict any use of the information to criminally investigate or prosecute any alcohol or drug abuse patient.[facility] CenterIn the event this information is protected by the Federal Confidentiality of Alcohol and Drug Abuse Patient Records regulations: The Federal rules restrict any use of the information to criminally investigate or prosecute any alcohol or drug abuse patient.[facility] CenterIn the event this information is protected by the Federal Confidentiality of Alcohol and Drug Abuse Patient Records regulations: The Federal rules restrict any use of the information to criminally investigate or prosecute any alcohol or drug abuse patient.[facility] CenterIn the event this information is protected by the Federal Confidentiality of Alcohol and Drug Abuse Patient Records regulations: The Federal rules restrict any use of the information to criminally investigate or prosecute any alcohol or drug abuse patient.[facility] CenterIn the event this information is protected by the Federal Confidentiality of Alcohol and Drug Abuse Patient Records regulations: The Federal rules restrict any use of the information to criminally investigate or prosecute any alcohol or drug abuse patient.[facility] CenterIn the event this information is protected by the Federal Confidentiality of Alcohol and Drug Abuse Patient Records regulations: The Federal rules restrict any use of the information to criminally investigate or prosecute any alcohol or drug abuse patient.[facility] CenterIn the event this information is protected by the Federal Confidentiality of Alcohol and Drug Abuse Patient Records regulations: The Federal rules restrict any use of the information to criminally investigate or prosecute any alcohol or drug abuse patient.[facility] CenterIn the event this information is protected by the Federal Confidentiality of Alcohol and Drug Abuse Patient Records regulations: The Federal rules restrict any use of the information to criminally investigate or prosecute any alcohol or drug abuse patient.[facility] CenterIn the event this information is protected by the Federal Confidentiality of Alcohol and Drug Abuse Patient Records regulations: The Federal rules restrict any use of the information to criminally investigate or prosecute any alcohol or drug abuse patient.[facility] CenterIn the event this information is protected by the Federal Confidentiality of Alcohol and Drug Abuse Patient Records regulations: The Federal rules restrict any use of the information to criminally investigate or prosecute any alcohol or drug abuse patient.[facility] CenterIn the event this information is protected by the Federal Confidentiality of Alcohol and Drug Abuse Patient Records regulations: The Federal rules restrict any use of the information to criminally investigate or prosecute any alcohol or drug abuse patient.[facility] CenterIn the event this information is protected by the Federal Confidentiality of Alcohol and Drug Abuse Patient Records regulations: The Federal rules restrict any use of the information to criminally investigate or prosecute any alcohol or drug abuse patient.[facility] CenterIn the event this information is protected by the Federal Confidentiality of Alcohol and Drug Abuse Patient Records regulations: The Federal rules restrict any use of the information to criminally investigate or prosecute any alcohol or drug abuse patient.[facility] CenterIn the event this information is protected by the Federal Confidentiality of Alcohol and Drug Abuse Patient Records regulations: The Federal rules restrict any use of the information to criminally investigate or prosecute any alcohol or drug abuse patient.[facility] Reason for Visit (unrecogniz ed [...] 60-74 MINUTES Montse Lou DO, PhD [address] [place] [address] Referral ID Status Reason Start Date Expiration Date V isits Requested Visits Authorized [id number] Closed PCP Requested Referral 06/01/2023 05/31/2024 1 [...] CT GUIDANCE STEREOTACTIC LOCALIZATION Erik Pineda MD [address] [place] [address] Ct Imaging [place] [address] Referral ID Status Reason Start Date Expiration Date V isits Requested Visits Authorized [id number] Closed Auto-Generate d Referral 01/19/2024 02/17/2025 1 1 Specialty Diagnoses / Procedures Referred By Contac t Referred To Contact MR IMAGING Diagnoses Benign neoplasm of meninges (HCC) Procedures MRI SKULL BASE WO/W IVCON MRI BRAIN BRAIN STEM W/O W/CONTRAST MATERIAL Erik Pineda MD [address] [place] [id number] Mr Imaging [place] [address] Referral ID Status Reason Start Date Expiration Date V isits Requested Visits Authorized [id number] Closed Auto-Generate d Referral 01/19/2024 02/17/2025 1 1 Reason Comments Appointment Reason Comments Established Patient Pre op consent Reason Comments Daily Headache Reason Comments epidural steroid injection Reason Comments Insurance Authorization [place] - Medicare / [employer]. Reason Onset Date Comments Refill Request 05/25/2024 Reason Comments Joint Pain Reason Comments Results Care Teams (unrecognized sec tion and content) Team Status: Active Member Role Status David Gonzalez MD Primary Care Provider Active Team Status: Inactive Member Role Status David Gonzalez MD Primary Care Provider Active Russell Shields MD Attending Provider Active Team Status: Inactive Member Role Status Dates Sammie Gonzalez MD Primary Care Provider, Attending Pr ovider Active Business Case Analyst Relationship Specialty Start Date End Date Sammie Gonzalez MD [address] [place] [address] Referring Family Practice 01/14/21 Team Status: Inactive Member Role Status Dates Sammie Gonzalez MD Primary Care Provider Active Elyssa Gomes MD Attending Provider Active Team Status: Inactive Member Role Status Dates Sammie Gonzalez MD Primary Care Provider Active Gunner Cummings DPM MS Attending Provider Active Business Case Analyst Relationship Specialty Start Date End Date Sammie Gonzalez MD [address] [place] [id number] Referring Family Medicine 01/14/21 Business Case Analyst Relationship Specialty Start Date End Date Sammie Gonzalez MD [address] [place] [id number] Referring Family Medicine 01/14/21 Business Case Analyst Relationship Specialty Start Date End Date Sammie Gonzalez MD Referring Family Medicine 01/14/21 Business Case Analyst Relationship Specialty Start Date End Date Sammie Gonzalez MD Referring Family Medicine 01/14/21 Business Case Analyst Relationship Specialty Start Date End Date Sammie Gonzalez MD Referring Family Medicine 01/14/21 Business Case Analyst Relationship Specialty Start Date End Date Sammie Gonzalez MD Referring Family Medicine 01/14/21 Business Case Analyst Relationship Specialty Start Date End Date Sammie Gonzalez MD Referring Family Medicine 01/14/21 Team Status: Inactive Member Role Status Dates Sammie Gonzalez MD Primary Care Provider Active Zeinab Mckinney ([facility]) , [place] Attending Provider Active Business Case Analyst Relationship Specialty Start Date End Date Sammie Gonzalez MD [address] [place] [address] PCP - General Family Medicine 05/12/23 Sammie Gonzalez MD Referring Family Medicine 01/14/21 Sammie Gonzalez MD [address] [place] [address] Referring Family Medicine 05/12/23 Business Case Analyst Relationship Specialty Start Date End Date Sammie Gonzalez MD [address] [place] [address] PCP - General Family Medicine 05/12/23 Sammie Gonzalez MD Referring Family Medicine 01/14/21 Sammie Gonzalez MD [address] [place] [facility] [address] Referring Family Medicine 05/12/23 Business Case Analyst Relationship Specialty Start Date End Date Sammie Gonzalez MD [address] [place] [facility] [address] PCP - General Family Medicine 05/12/23 Sammie Gonzalez MD Referring Family Medicine 01/14/21 Sammie Gonzalez MD [address] [place] [facility] [address] Referring Family Medicine 05/12/23 Business Case Analyst Relationship Specialty Start Date End Date Sammie Gonzalez MD [address] [place] [facility] [address] PCP - General Family Medicine 05/12/23 Sammie Gonzalez MD Referring Family Medicine 01/14/21 Sammie Gonzalez MD [address] [place] [facility] [address] Referring Family Medicine 05/12/23 Business Case Analyst Relationship Specialty Start Date End Date Sammie Gonzalez MD [address] [place] [facility] [address] PCP - General Family Medicine 05/12/23 Sammie Gonzalez MD Referring Family Medicine 01/14/21 Samime Gonzalez MD [address] [place] [address] Referring Family Medicine 05/12/23 Business Case Analyst Relationship Specialty Start Date End Date Sammie Gonzalez MD [address] [place] [address] PCP - General Family Medicine 05/12/23 Sammie Gonzalez MD Referring Family Medicine 01/14/21 Sammie Gonzalez MD [address] [facility] [place] [address] Referring Family Medicine 05/12/23 Business Case Analyst Relationship Specialty Start Date End Date Sammie Gonzalez MD [address] [facility] [place] [address] PCP - General Family Medicine 05/12/23 Sammie Gonzalez MD Referring Family Medicine 01/14/21 Sammie Gonzalez MD [address] [facility] [place] [address] Referring Family Medicine 05/12/23 Business Case Analyst Relationship Specialty Start Date End Date Sammie Gonzalez MD [address] [place] [address] PCP - General Family Medicine 05/12/23 Sammie Gonzalez MD Referring Family Medicine 01/14/21 Sammie Gonzalez MD [address] [place] [address] Referring Family Medicine 05/12/23 Business Case Analyst Relationship Specialty Start Date End Date Sammie Gonzalez MD [address] [place] [address] PCP - General Family Medicine 05/12/23 Sammie Gonzalez MD Referring Family Medicine 01/14/21 Sammie Gonzalez MD [address] [place] [address] Referring Family Medicine 05/12/23 Team Status: Inactive [...] January 08, 2024 End: January 08, 2024 Business Case Analyst Relationship Specialty Start Date End Date Sammie Gonzalez MD [address] [place] [address] PCP - General Family Medicine 05/12/23 Sammie Gonzalez MD Referring Family Medicine 01/14/21 Sammie Gonzalez MD [address] [facility] [place] [address] Referring Family Medicine 05/12/23 Business Case Analyst Relationship Specialty Start Date End Date Sammie Gonzalez MD [address] [facility] [place] [address] PCP - General Family Medicine 05/12/23 Sammie Gonzalez MD Referring Family Medicine 01/14/21 Sammie Gonzalez MD [address] [facility] [place] [address] Referring Family Medicine 05/12/23 Business Case Analyst Relationship Specialty Start Date End Date Sammie Gonzalez MD [address] [facility] [place] [address] PCP - General Family Medicine 05/12/23 Sammie Gonzalez MD Referring Family Medicine 01/14/21 Sammie Gonzalez MD [address] [facility] [place] [address] Referring Family Medicine 05/12/23 Team Status: Inactive [...] March 04, 2024 End: March 04, 2024 Business Case Analyst Relationship Specialty Start Date End Date Sammie Gonzalez MD [address] [place] [address] PCP - General Family Medicine 05/12/23 Sammie Gonzalez MD Referring Family Medicine 01/14/21 Sammie Gonzalez MD [address] [place] [address] Referring Family Medicine 05/12/23 Business Case Analyst Relationship Specialty Start Date End Date Sammie Gonzalez MD [address] [place] [address] PCP - General Family Medicine 05/12/23 Sammie Gonzalez MD Referring Family Medicine 01/14/21 Sammie Gonzalez MD [address] [place] [address] Referring Family Medicine 05/12/23 Business Case Analyst Relationship Specialty Start Date End Date Sammie Gonzalez MD [address] [place] [address] PCP - General Family Medicine 05/12/23 Sammie Gonzalez MD Referring Family Medicine 01/14/21 Sammie Gonzalez MD [address] [facility] [place] [address] Referring Family Medicine 05/12/23 Team Status: Inactive Member Role Status Dates Sammie Gonzalez MD Primary Care Provide r, Attending Provider Active Start: May 12, 2024 End: May 12, 2024 Business Case Analyst Relationship Specialty Start Date End Date Sammie Gonzalez MD [address] [place] [address] PCP - General Family Medicine 05/12/23 Sammie Gonzalez MD Referring Family Medicine 01/14/21 Sammie Gonzalez MD [address] [facility] [place] [address] Referring Family Medicine 05/12/23 Business Case Analyst Relationship Specialty Start Date End Date Sammie Gonzalez MD [address] [facility] [place] [address] PCP - General Family Medicine 05/12/23 Sammie Gonzalez MD Referring Family Medicine 01/14/21 Sammie Gonzalez MD [address] [facility] [place] [address] Referring Family Medicine 05/12/23 Team Status: Inactive [...] June 22, 2024 End: June 22, 2024 Business Case Analyst Relationship Specialty Start Date End Date Sammie Gonzalez MD [address] [facility] [place] [address] PCP - General Family Medicine 03/12/23 Goals [...] BE BASED ON THE PRIMARY CLINICAL RECORDS. [employer] provides no warranty or guarantee of the accuracy or completeness of information in this document.
[2024-08-01 07:21] VITALS: BP 131/81; PULSE 91; TEMP 36.3; O2SAT 97
[2024-08-01 07:26] LABS: Glucometer 103 mg/dL (74-106)
[2024-08-01] MEDS: 0.9 % SODIUM CHLORIDE 500 ML IV (07:32)
[2024-08-01] MEDS: BUPIVACAINE HCL 0.25% PF 25 MG/10 ML VIAL 5 ML INJ (08:11)
[2024-08-01] MEDS: DEXAMETHASONE SOD PHOS 10 MG/ML VIAL INJ (08:11)
[2024-08-01] MEDS: LIDOCAINE HCL 2% 400 MG/20 ML MDV 5 ML INJ (08:12)
--- NOTE | 2024-08-01 08:20 | P.ON_ITS ---
Date of procedure: 08/01/24 Pre-op diagnosis: Pain due to cervical spondylosis without myelopathy Post-op diagnosis: same as pre-op Procedure: Procedure: Right C4-5, 5-6 radiofrequency ablation Medications: Bupivacaine 0.25% 2cc, lidocaine 2% 3cc, dexamethasone 10mg The patient was seen and examined in the preoperative holding area.? The site was marked.? Written informed consent was obtained and placed on the chart.? The patient was brought to the medical procedure unit and placed in the prone position.? A timeout was completed verifying correct patient, procedure, positioning, and special requirements.? The skin overlying the target points, the designated medial branch, were prepped and draped in the usual sterile fashion.? The target point was achieved with a 20-gauge 15 cm with a 10 mm curved active tip radiofrequency cannula under direct fluoroscopic visualizatio n.? The needle was inserted at level C4 on the right side. Needle tip position was confirmed with lateral fluoroscopic position.? Motor stimulation was carried out at 2 Hz up to 5 volts with the absence of extremity activity.? This was repeated at level C5, 6 on right side.?? Sensory stimulation was carried out.? Concordant pain was realized at the above- mentioned sites.? Then radiofrequency lesioning was carried out times 90 seconds at 80 degrees times 2 lesions at each level.? The radiofrequency probe was removed prior to cannula removal.? The above-mentioned injectate was placed in 1 mL increments.? The needle was removed.? Insertion sites were covered.? The patient was taken to the postoperative recovery area and monitored for an appropriate length of time before being found suitable for discharge in the company of a responsible adult. Anesthesia: MAC Surgeon: Ridge Hollingsworth Pathology: none sent Condition: stable Disposition: no change
[2024-08-01 08:22] VITALS: BP 129/73; PULSE 91; TEMP 36.3; O2SAT 99
[2024-08-01 08:30] VITALS: BP 118/67; PULSE 92; TEMP 36.3; O2SAT 98
== END 2024-08-01 08:49 | disposition home or self-care (01) ==
LOC: SURGOUT 07:09
PROVIDERS: PCP Family Medicine; Visit Provider Anesthesiology
PROC: (CPT 1992; principal; 2024-08-01 08:00)
DX: M47.812 Spondylosis without myelopathy or radiculopathy, cervical region (principal); Z87.891 Personal history of nicotine dependence; E78.5 Hyperlipidemia, unspecified; I10 Essential (primary) hypertension; K21.9 Gastro-esophageal reflux disease without esophagitis; E11.9 Type 2 diabetes mellitus without complications; E07.9 Disorder of thyroid, unspecified; Z79.84 Long term (current) use of oral hypoglycemic drugs
CPT/HCPCS: 36415; 64633; 64634; 82948; 84703; J0665; J1100; J2704

== ENCOUNTER 2024-08-31 13:32 | Outpatient (OUT) | payer MEDICARE, MEDICAID, SELFPAY ==
--- NOTE | 2024-08-31 14:00 | P.CN_ITS ---
Consult Note: HPI Data of Consult Patient: known to practice within the last 3 years Consult date: 03/07/24 Requesting Physician: Chantal Ocampo NP Primary Care Provider: Jesus Camacho MD Consult Narrative Reason for consult: chronic neck pain and low back pain Narrative: 48yof who presents for evaluation. longstanding neck pain. recently evaluated by back surgeon, who recommended injection therapy prior to surgical intervention. imaging reviewed, which is significant for moderate to severe stenosis at l5-s1, as well as cervical spondylosis and moderate to severe foraminal narrowing at multiple cervical levels, worst at c6-7. she has engaged in a series of provider directed home exercises >6 weeks without lasting benefit. uses ibuprofen as needed. denies adverse med side effects. recently underwent left and right C4-5 C5-6 facet RFA with 90% improvement ongoing. would like to address chronic bilateral low back pain increasing to 9/10 with standing walking or lifting. denies numbness tingling of BLE. 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 - 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], unspecified hand (ICD-10) History of smoking ?Z87.891 - Personal history of nicotine dependence (ICD-10) Carpal tunnel syndrome ?G56.00 - Carpal tunnel syndrome, unspecified upper limb (ICD-10) Obesity ?E66.9 - Obesity, unspecified (ICD-10) Anemia ?D64.9 - Anemia, unspecified (ICD-10) Anxiety ?F41.9 - Anxiety disorder, unspecified (ICD-10) Acid reflux ?K21.9 - Gastro-esophageal reflux disease without esophagitis (ICD-10) Diabetes 1.5, managed as type 2 ?E13.9 - Other specified diabetes mellitus without complications (ICD-10) Hypertension ?I10 - Essential (primary) hypertension (ICD-10) High cholesterol ?E78.00 - Pure hypercholesterolemia, unspecified (ICD-10) Surgical History H/O resection of rib ?Z98.890 - Other specified postprocedural states (ICD-10) History of surgery on arm ?Z98.890 - Other specified postprocedural states (ICD-10) H/O breast biopsy ?Z98.890 - Other specified postprocedural states (ICD-10) History of carpal tunnel surgery ?Z98.890 - Other specified postprocedural states (ICD-10) History of appendectomy ?Z90.49 - Acquired absence of other specified parts of digestive tract (ICD- 10) Meds Home Medications and Allergies Home Medications ?Medication ?Instructions ?Recorded ?Confirmed ?Type brexpiprazole 2 mg tablet (Rexulti) 2 mg PO DAILY 02/17/23 08/01/24 History dapagliflozin propanediol 5 mg 5 mg PO DAILY 02/17/23 08/01/24 History tablet (Farxiga) duloxetine 30 mg capsule,delayed 30 mg PO DAILY 02/17/23 08/01/24 History release glycopyrrolate 1 mg tablet 1 mg PO Q8H PRN secretions 02/17/23 08/01/24 History hydroxychloroquine 200 mg tablet 200 mg PO BID 02/17/23 08/01/24 History ipratropium 0.5 mg-albuterol 3 mg 3 ml inhalation Q6H PRN shortness 02/17/23 08/01/24 History (2.5 mg base)/3 mL nebulization of breath soln lamotrigine 200 mg tablet 200 mg PO Q8H 02/17/23 08/01/24 History lisinopril 10 mg tablet 10 mg PO DAILY 02/17/23 08/01/24 History lubiprostone 24 mcg capsule 24 mcg PO BID 02/17/23 08/01/24 History metformin 500 mg tablet 1,000 mg PO BID 02/17/23 08/01/24 History ondansetron HCl 4 mg tablet 4 mg PO Q8H PRN nausea and vomiting 02/17/23 08/01/24 History pioglitazone 15 mg tablet 15 mg PO DAILY 02/17/23 08/01/24 History simvastatin 20 mg tablet 20 mg PO DAILY 02/17/23 08/01/24 History vilazodone 40 mg tablet (Viibryd) 40 mg PO DAILY 02/17/23 08/01/24 History budesonide 1 mg/2 mL suspension 1 mg inhalation DAILY 03/08/24 08/01/24 History for nebulization (Pulmicort) dexlansoprazole 60 mg 60 mg PO DAILY 03/08/24 08/01/24 History capsule,biphase delayed release (Dexilant) etodolac 400 mg tablet (Lodine) 400 mg PO Q12H PRN pain 03/08/24 08/01/24 Hist ory nortriptyline 25 mg capsule 25 mg PO DAILY 03/08/24 08/01/24 History methocarbamol 500 mg tablet mg 07/04/24 History mirabegron 25 mg tablet,extended mg PO 07/04/24 History release 24 hr (Myrbetriq) Allergies Allergy/AdvReac Type Severity Reaction Status Date / Time No Known Drug Allergies Allergy Verified 08/01/24 07:29 Exam Constitutional Documenting provider has reviewed patient's vital signs: yes Common normals: no apparent distress, oriented x3, healthy appearing, alert and well nourished General appearance: cooperative HENRI Common normals: normocephalic, hearing grossly normal bilaterally and moist oral mucous membranes Head and scalp: normocephalic Eye Common normals: PERRL Pupil: PERRL Neck & C-Spine Common normals: full ROM General: normal visual inspection Cervical spine: pain with cervical ROM and cervical spine tenderness; no paracervical muscle tenderness, no paracervical muscle spasm and no trapezius muscle tenderness Other: negative facet loading no tenderness over bilateral occipital nerves negative spurlings strength 5/5 in BUE Chest Common normals: inspection of chest normal Respiratory Common normals: normal respiratory effort, no retractions and no use of accessory muscles Back & Pelvis Lumbar spine/lower back: ROM limited, pain with ROM, lumbar spinal tenderness and straight leg raise negative bilaterally Sacroiliac joints: SI joints normal Other: sensation intact BLE strength 5/5 in BLE positive facet loading L4-S1 Extremity Common normals: normal to inspection and full ROM Neuro Common normals: oriented x3, CN's II-XII intact bilaterally, moves all extremi ties, no focal motor deficits, no sensory deficits noted and deep tendon reflexes 2+ bilaterally Sensorium/orientation: alert Motor exam: strength 5/5 throughout and no movement abnormalities noted Psych Common normals: mental status grossly normal, thought process normal, cooperative, affect normal, speech normal and activity/motor behavior normal Speech: normal speech Thought process: normal thought process Results Additional Findings Additional findings: If on a controlled substance or opioids, I have checked an [place] report on this patient and there are no aberrancies noted in the prescribing history.??If on a controlled substance or opioid a drug screen was completed and reviewed within the last year, and if there has not been a drug screen completed we ordered one today to monitor higher risk, state monitored pain medication use. As part of providing excellent, safe, comprehensive care, the following was completed at our patient's visit: 1. A medication reconciliation and review to ensure accurate knowledge of current/active medications, including asking our patients to inform us about any [id number] medications or herbal remedies/nutritional supplements/alternative remedies. 2. A review to specifically ensure our patients have had annual screening for screening for depression, screening for tobacco use, and screening for unhealthy alcohol use. For concerning screenings had a discussion with the patient, provided patient education, and recommended follow-up with primary care provider when appropriate. If patient noted with a risk of falling, they received education on strength, gait, and balance training to prevent future risk of falling. Assessment and Plan Assessment and Plan (1) Cervical spondylosis: Assessment and Plan: The patient has had over 3 months of moderate to severe neck pain with functiona l impairment and inadequate response to conservative care including NSAIDS (unless there are contraindication such as concurrent blood thinners), multiple oral or topical pain medications, and home exercise program/physical therapy.? Patient has completed >6 weeks of guided home exercise program and/or formal physical therapy program without relief of their symptoms.? I have reviewed the imaging of the cervical spine and no red flags were identified.? The imaging reveals radiographic findings consistent with cervical spondylosis We discussed the risks and benefits of the procedure with the patient, and we are NOT planning on using sedation as outlined in the guidelines from Medicare unless there is a documented reason that sedation would be strongly recommended.??The procedure will be completed with fluoroscopic guidance.? (2) Lumbar spondylosis: Plan left and right C4-5 C5-6 facet joint RFA under fluoroscopy providing significant relief bilateral l4-5 L5-S1 facet MBB x2 working towards RFA discussed, pt to call to schedule continue medications through rheumatology and neurology f/u after each injection or as needed
== END 2024-08-31 13:33 | disposition home or self-care (01) ==
LOC: PM 13:33
PROVIDERS: PCP Family Medicine; Visit Provider Nurse Practitioner
DX: M47.812 Spondylosis without myelopathy or radiculopathy, cervical region (principal); M47.816 Spondylosis without myelopathy or radiculopathy, lumbar region
CPT/HCPCS: G0463

== ENCOUNTER 2025-02-02 13:30 | Outpatient (OUT) | payer MEDICARE, MEDICAID, SELFPAY ==
--- OUTSIDE RECORDS SUMMARY | 2024-02-19 07:10 | XMS_ITS ---
Author Organization [facility] Address [address] [place] [address] Care Team Providers Care Men'S Golf Coach Name Role Phone Jesus Camacho Primary Care Provider Etienne Curry Unavailable [phone] Haylie Seymour Unavailable [phone] Reason For Referral Reason REFERRAL TO [place] FOR NAKIA Diagnosis 1 Neck pain (M54.2) Referral Organization [facility] Referring Provider First Name Etienne Referring Provider Last Name [facility] Referring Provider Speciality Orthopedic Surgery Referred Organization Pain clinic General Notes Marielos Giron 2023 12:50:46 PM >, Marielos Giron 03/02/2024 08:51:27 AM >FAXED TO [facility] Referral Priority Routine REASON FOR VISIT Neck/low Back Pain Problems Problem Type SNOMED Code ICD Code Onset Dates Problem Status W/U Status Risk Notes Problem 20634579 Other intervertebral disc displacement, 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) Active confirmed Problem 72462695 Other intervertebral disc degeneration, lumbosacral region (M51.37) Active confirmed Problem 428291959 Spinal stenosis, lumbosacral region (M48.07) Active confirmed Problem 52511230 Spinal stenosis, cervical region (M48.02) Active confirmed Problem 095599340 Other cervical d isc displacement at C5-C6 level (M50.222) Active confirmed Problem 920498149 Other cervical d isc displacement at C6-C7 level (M50.223) Active confirmed Problem 85606035 Radiculopathy, cervical region (M54.12) Active confirmed Encounters Encounter Location Date Provider Diagnosis [facility] [address] [place] [address] [place] [address] 02/19/2024 Haylie Seymour Other intervertebral disc displacement, lumbosacral region M51.27 [...] with patient. We will refer her to [place] [facility] for NAKIA of C7/T1 and [...] with patient. We will refer her to [place] [facility] for NAKIA of C7/T1 and [...] Date Lumbar spine, 4v flex ext - 47146 2023 Cervical spine,ap,lat,flex,ext - 46463 0 02/19/2024 SFS - Lumbar Spine PT Order, Isometrics & Strenghening w/Modalities as needed, 2-3 times per week for 6 weeks 02/19/2024 SFS - Cervical Spine PT Orde r, Isometrics & Strenghening w/Modalities as needed. 2-3 x Week for 4-6 Weeks 02/19/2024 Epidural injection - lumbar 02/19/2024 Referrals Referral Date Details 02/19/2024 02/19/2024, REFERRAL TO [place] FOR N[facility]IA Next Appt Details Follow Up: prn, Reason: Progress Notes * DEON PICHARDO LDOB:[birth year] (49 yo F)Acc No.[id number]:02/19/2024 Patient: DEON ROBERSON Provider: VIVEK Mckenzie :1975 A ge:48 Y S ex:Female Date:02/19/2024 Address:[address] [place], [place] [address], [facility] Pcp:Jesus Camacho Subjective: * Chief Complaints: * 1 . Neck/low Back Pain. * HPI: G eneral Follow Up Information: Dictated by Haylie Seymour PA-C Thank you for referring your patient to see Dr. Byrne in surgical spine consultation at the [facility] [place]. 48-year-old female presents with 20+ years of [...] otor vehicle accident: n o. T hird alliance party responsibility: n o. W hat activities make your symptoms worse? s tanding, walking, bending forward, lying on your stomach, rising from sitting, changing positions.?Quality of pain is N elissa, upper, middle, lower back almost at all times . W hich of the following treatments have you tried? A nti-Inflammatory medications, Narcotic pain medication, hot packs, TENS unit/Muscle stim, Back,Neck exercises, animal caretaker supervisor . W hat activities help the pain? [...] without contrast was reviewed from [facility] from 02/09/2024; Impression:C5-6 broad-based disc bulge with [...] without contrast was reviewed from [facility] from 02/09/2024; Impression:At L5-S1 there is a [...] * Images: * Electronic signature of Nikita Seymour PA-C on 02/02/2025 at 01:02 PM EDT Sign off status: Pending * Provider: VIVEK Mckenzie Date: 0 02/19/2024 Generated for Dax ken/Leisa/Isael on: 0 02/02/2025 01:02 PM EDT History and Physical Notes * HPI (History of Present Illness) Category Sub-Category Detail Notes Category Not es General Follow Up Information Dictated by Haylie Seymour PA-C Thank you for referring your patient to see Dr. Byrne in surgical spine consultation at the [facility]. 48-year-old female presents with 20+ years of [...] of Pain/Cause of Injury many years Third alliance party responsibility: no What activities make your symptoms worse ? standing, walking, bending forward, lying on your stomach, rising from sitting, changing positions Which of the following treat ments have you tried? Anti-Inflammatory medications, Narcotic pain medication, hot packs, TENS unit/Muscle stim, Back,Neck exercises, animal caretaker supervisor What activities help the pain? sitting Examination [...] without contrast was reviewed from [facility] from 02/09/2024; Impression:C5-6 broad-based disc bulge with [...] without contrast was reviewed from [facility] from 02/09/2024; Impression:At L5-S1 there is a [...]
--- OUTSIDE RECORDS SUMMARY | 2024-12-12 05:08 | XMS_ITS ---
Author Organization [facility] in [place] Address [address] [place] [address] Care Team Providers Care Bingo Cashier Name Role Phone Eric Camacho Primary Care Provider REASON FOR VISIT labs Medications Medication SIG (Take, Route, Fr equency, Duration) Notes Start Date End Date Status Vilazodone HCl 10 MG 2 tablet with food for 2 weeks , valeria 1 tablet a day for 2 weeks Orally Once a day for 21 days 01/02/2025 Active Doxepin HCl 10 MG 1 capsule Orally TID for 30 days Active Encounters Encounter Location Date Provider Diagnosis [facility] [address] [place] [address] 12/12/2024 Eric Camacho Iron deficiency ane alexandra, unspecified D50.9 Assessments Encounter Date Diagnosis (ICD Code) Assessment Notes Treatment Notes Treatment Clinical Notes Section Notes 12/12/2024 Iron deficiency anemia, unspecified (ICD-10 - D50.9) Plan Of Treatment Medication Medication Name Sig Start Date Stop Date Notes Vilazodone HCl 10 MG 2 tablet with food for 2 weeks , valeria 1 tablet a day for 2 weeks Orally Once a day for 21 days 01/02/2025 Doxepin HCl 10 MG 1 capsule Orally TID for 30 days Pending Test Test Name Order Date CBC AUTO DIFF 12/12/2024 FERRITIN 12/12/2024 IRON 12/12/2024 Progress Notes * Kourtney PICHARDO LDOB:[birth year] (49 yo F)Acc No.[id number]:12/12/2024 Patient: Kourtney ROBERSON :1975 A ge:49 Y S ex:Female Address:[address] [place] [address], [id number] * Refills Refill Doxepin HCl Capsule, 10 MG, Orally, 90 Capsule, 1 capsule, TID, 30 days, Refills=3 Refill Vilazodone HCl Tablet, 10 MG, Orally, 42, 2 tablet with food for 2 weeks , valeria 1 tablet a day for 2 weeks, Once a day, 21 days, Refills=0 Subjective: * Chief Complaints: * L abs * Medical History: * Surgical History: * Hospitalization/Major Diagno stic Procedure: * Medications: Objective: * Vitals: * Physical Examination: Assessment: * Assessment: 1. I belem deficiency anemia, unspecified - D50.9 (Primary) Plan: * Treatment: 2. O thers Refill Doxepin HCl Capsule, 10 MG, 1 capsule, Orally, TID, 30 days, 90 Capsule, Refills 3; R efill Vilazodone HCl Tablet, 10 MG, 2 tablet with food for 2 weeks , valeria 1 tablet a day for 2 weeks, Orally, Once a day, 21 days, 42, Refills 0. * Procedure Codes: * true * Date: Generated for Dax ken/Leisa/Jerichoitting on: 0 02/02/2025 01:37 PM EDT
--- OUTSIDE RECORDS SUMMARY | 2024-12-14 16:45 | XMS_ITS ---
Author Organization [facility] in [place] Address [address] [place] [address] Care Team Providers Care Talent Acquisition Assistant Name Role Phone Eric Camacho Primary Care Provider REASON FOR VISIT labs Encounters Encounter Location Date Provider Diagnosis [facility] [address] [place] [address] 12/14/2024 Eric Camacho Plan Of Treatment No Information Progress Notes * Kourtney PICHARDO LDOB:[birth year] (49 yo F)Acc No.[id number]:12/14/2024 Patient: Alpesh Kourtney BEAR :1975 A ge:49 Y S ex:Female Address:[address] [place], [address] * true * Date: Generated for Dax ken/Leisa/eTransmitting on: 0 02/02/2025 01:37 PM EDT
--- OUTSIDE RECORDS SUMMARY | 2025-01-06 08:35 | XMS_ITS ---
Author Name Auto Generated Organization OHIP Support Name Relationship Address Phone Christiano Saini Next of Kin [address] [place] [address] + [place], Christopher Next of Kin Unknown + [place], Christiano Next of Kin [address] [place] [address] + Parveen, Christopher Next of Kin Unknown + Parveen Christiano Next of Kin [address] [place] [address] + Parveen, Christopher Next of Kin Unknown + [place] Christiano Next of Kin [address] [place] [address] + [place], Christopher Next of Kin Unknown + Parveen, Christiano Next of Kin [address] [place] [address] + [place], Christopher Next of Kin Unknown + PARVEEN, CHRISTIANO Next of Kin Unknown +[phone] PARVEEN, CHRISTOPHER Next of Kin Unknown + ELAINE RUIZ Next of Kin Unknown + [place], Christiano Next of Kin [address] [facility] [place] [address] + [place], Christopher Next of Kin Unknown + Parveen, Christiano Next of Kin [address] [place] [address] + Laith Saini Next of Kin Unknown + Christiano Saini Next of Kin [address] [place] [address] + Laith Saini Next of Kin Unknown + Christiano Saini Next of Kin [address] [place] [address] + Laith Saini Next of Kin Unknown + Care Team Providers Care Process Chemist Name Role Phone RACHELE FENTON Attending Unavailable HOY, SAMMIE M Primary Care Unavailable ZEINAB WOOD Attending Unavailable HOY, SAMMIE M Primary Care Unavailable ZEINAB WOOD Attending Unavailable HOY, SAMMIE M Primary Care Unavailable RACHELE FENTON Attending Unavailable HOY, SAMMIE M Primary Care Unavailable Hoy, Sammie M Primary Care Unavailable Self, Referral Admitting Unavailable Self, Referral Attending Unavailable Hoy, Sammie M Primary Care Unavailable Zeinab Wood Admitting Unavailable Zeinab Wood Attending Unavailable Camxa, Mk Attending Unavailable Hoy, Sammie M Primary Care Unavailable Olexa Mk Admitting Unavailable Hoy, Sammie M Primary Care Unavailable Hoy, Sammie M Attending Unavailable Hoy, Sammie M Admitting Unavailable Hoy, Sammie M Primary Care Unavailable Hoy, Sammie M Attending Unavailable Hoy, Sammie M Admitting Unavailable Hoy, Sammie M Attending Unavailable Hoy, Sammie M Admitting Unavailable Hoy, Sammie M Primary Care Unavailable Calvey, Elyssa R Admitting Unavailable Calvey, Elyssa R Attending Unavailable Hoy, Sammie M Primary Care Unavailable Hoy, Sammie M Primary Care Unavailable Hoy, Sammie M Attending Unavailable Hoy, Sammie M Admitting Unavailable Hoy, Sammie M Primary Care Unavailable Hoy, Sammie M Attending Unavailable Hoy, Sammie M Admitting Unavailable ESTEVAN POLANCO Attending Unavailable Darrick MCGHEE, Ridge Garcia Attending Unavailable Darrick MCGHEE, Ridge Garcia Attending Unavailable Darrick MCGHEE, Ridge Garcia Attending Unavailable Darrick MCGHEE, Ridge Garcia Attending Unavailable Darrick MCGHEE, Andnestor Garcia Attending Unavailable Darrick MCGHEE, Ridge Garcia Attending Unavailable Darrick MCGHEE, Andnestor Garcia Attending Unavailable PROBLEMS DATE TYPE CONDITION / CODE ATTENDING STATUS 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], right hand / M92.211(ICD-10) [facility] 12/13/2024 Unknown Iron deficiency anemia, unspecified / D50.9(ICD-10) Sammie Camacho [facility] 11/03/2024 Unknown Pain in left briseyda ulder / M25.512(ICD-10) Mk Broderick [facility] 09/20/2024 Unknown Unspecified osteoarthritis, unspecified site / M19.90(ICD-10) Zeinab Wood [facility] 09/16/2024 Unknown Encounter for sc reening mammogram for malignant neoplasm of breast / Z12.31(ICD-10) Self, Referral [facility] 06/22/2024 Unknown Hypothyroidism, unspecified / E03.9(ICD-10) Sammie Camacho [facility] 05/12/2024 Unknown Hyperlipidemia, unspecified / E78.5(ICD-10) Sammie Camacho [facility] 02/15/2024 Unknown Nontoxic single thyroid nodule / E04.1(ICD-10) Sammie Camacho [facility] 02/09/2024 Unknown Paresthesia of s kin / R20.2(ICD-10) Sammie herbert [facility] PROCEDURES No Procedure Records Found RESULTS PROGRESS Observed: 01/06/2025 8:45 AM Status: COMPLETED Source: [facility] HNO ID: [id number] Author: RACHELE FENTON APRN.JOSSIE Service: ? Author Type: Nurse Practitioner Type: Progress Notes Filed: 01/06/2025 08:57 Note Text: Headache Center - Follow up [...] visit. Either the patient or their legal sales representative health insurance has been informed of the risks and benefits of -- and alternatives to -- treatment through a remote evaluation and consents to proceed with the evaluation remotely. Accompanied by: Self Primary Problem List: ACTIVE PROBLEM LIST Intracranial Meningioma (Hcc) Chronic Tension-Type Headache, Intractable Chief Complaint: headache follow-up Last Office Visit: 02/04/25 w/ Rachele Fenton CNP Impression and Plan from last visit: Chronic daily headache Meningioma (hcc) (primary encounter [...] qhs -Robaxin trial -Follow up 3 months Interval Headache History: Kourtney Novak is a 49 year old year old female, with a history of DM, COPD, Meningioma, and chronic headaches following up today virtually for medication management. Since the last visit, the patient states that her headaches have improved. Headache 1 Number of migraine headache days/month: 0 Number of headache free days/month: 25 Days missed from work or school in the last month: 0 days Migraines: - Decreased frequency to 2-3 episodes/month. - Recent epidural injection in the neck (August) has significantly reduced headache frequency. - Currently taking nortriptyline 25 mg daily; desires to discontinue. - Using Robaxin without side effects. Depression: - Managed with Cymbalta. Hypothyroidism: - Managed with Synthroid. Preventative: nortriptyline 25 mg po qhs, cymbalta 90 mg Abortive: robaxin PAST MEDICAL HISTORY Diagnosis Date Anxiety COPD (chronic obstructive pulmonary disease) (HCC) Depression Diabetes mellitus (HCC) Fibromyalgia Mixed hyperlipidemia PAST SURGICAL HISTORY Procedure Laterality Date APPENDECTOMY 2020 HAND SURGERY HX Right 2020 REVISE MEDIAN N/CARPAL TUNNEL SURG Bilateral ALLERGIES No Known Allergies Current Medications: nortriptyline (PAMELOR) 10 mg capsule Take 1 capsule at bedtime for 2 weeks, then 1 capsule every other day for 1 week then stop methocarbamol (ROBAXIN) 500 mg tablet TAKE 1 TABLET BY MOUTH TWICE A DAY NEEDED DULoxetine (CYMBALTA) 60 mg capsule Take 1 capsule by mouth once daily. DULoxetine (CYMBALTA) 30 mg capsule Take one tab along with the 60mg tab to equal 90mg po qd etodolac (LODINE) 400 mg tablet One tab po bid prn predniSONE (DELTASONE) 5 mg tablet TAKE 1 TO 2 TABLETS BY MOUTH EVERY DAY levothyroxine (SYNTHROID) 50 mcg tablet Take 50 mcg by mouth daily before breakfast. DULoxetine (CYMBALTA) 60 mg capsule Take one tab along with 30mg tab to equal 90mg po every day hydrOXYchloroQUINE (PLAQUENIL) 200 mg tablet Take 1 tablet by mouth two times a day. vilazodone (VIIBRYD) 40 mg tablet Take 40 mg by mouth once daily. (Patient taking differently: Take 10 mg by mouth once daily.) benzonatate (TESSALON PERLES ORAL) REXULTI 2 mg [...] these with the patient: yes Rachele Fenton APRN.LUNCHROOM MONITOR HEADACHE SCORES: 06/19/2023 02/01/2024 12/30/2024 Headache Questions ID Migraine Screener: 1 (Negative) ER visits since last office visit: 0 0 Hospital stays in the last year: 0 Hospital stays since last office visit 0 0 Limited ADLs in the last month: 0 0 0 Days missed from work or school in the last month: 0 0 0 Days headache pain free in the last month: 3 25 25 Days per month with ALL of the following symptoms - decreased productivity, light sensitivity and nausea: 8 0 0 Initial improvement of headache after botox injection at last visit: Not applicable, I did not have a botox injection at my last visit Not applicable, I did not have a botox injection at my last visit PRN medication usage in the last month: 25 0 Patient impression of improvement since last visit: Very much improved Much improved 06/19/2023 02/01/2024 12/30/2024 HIT-6 HIT-6 63 (Severe impact) 46 (Little or no impact) 42 (Little or no impact) 06/19/2023 02/01/2024 12/30/2024 ELINOR - 2/7 SCORES ELINOR-2 Score 1 0 0 02/01/2024 12/30/2024 Migraine Specific QOL - Higher scores indicate better HRQL Role Function-Restrictive Transformed Score (range: 0-100) 100 100 Role Function-Preventive Transformed Score (range: 0-100) 100 100 Emotional Function Transformed Score (range: 0-100) 100 100 06/19/2023 02/01/2024 12/30/2024 PHQ-9 Score 2 5 2 Studies to Review: No MRI Head/Brain - [...] soft tissue component identified in the orbit. Director Of Strategy & Mobile: PSCB Transcribe Date/Time: Jan 31 2024 3:33P [...] and clear, coherent, and relevant. Short and oil heaterman memory, cognition and general fund of knowledge are good. Attention span and concentration are excellent. HEENT: Head is normocephalic and features were symmetric. Musculoskeletal: Patient able to sit up right in chair for entirety of visit. Cranial Nerves: III, IV, -EOMI: full. VII-face is symmetric without evidence of weakness. VIII-hearing intact. ASSESSMENT/PLAN: 1. Chronic daily headache (R51.9) - Significant improvement in headache frequency following epidural injection in the cervical region around August; currently experiencing 2-3 headaches per month. - Patient desires to discontinue nortriptyline 25 mg. - Initiated tapering schedule for nortriptyline: prescribed 10 mg tablets, instructed to take 10 mg nightly for 2 weeks, then 10 mg every other day for 1 week before discontinuing. - Prescription for 10 mg nortriptyline sent to [facility], 2-month supply provided to accommodate tapering schedule. - Continues to take Robaxin without side effects. - Follow-up in 6 months to assess headache control post-nortriptyline discontinuation. HEADACHE MANAGEMENT: (You are the primary guardian of your health and headache. Keep track of all medications: This includes the reason for use, side effects and benefits.) MEDICATION TREATMENT: Medications to Start Taking nortriptyline (PAMELOR) 10 mg capsule Take 1 capsule at bedtime for 2 weeks, then 1 capsule every other day for 1 week then stop Instructed patient about medications. Headache education was done. Discussed lifestyle modification [...] given. RESEARCH: None at this time Follow-up: 6 months Level of Service: Virtual Visit 20 minutes Recording using [employer] software for draft documentation of the visit was discussed with the patient/authorized sales representative health insurance; all questions welcomed and answered. Patient/authorized sales representative health insurance agreed to proceed Rachele Fenton APRN.LUNCHROOM MONITOR Headache Section [facility] January 06, 2025 PROGRESS Observed: 01/05/2025 12:49 PM Status: COMPLETED Source: [facility] HNO ID: [id number] Author: MARQUEZ LOPEZ LPN Service: ? Author Type: LICENSED NURSE Type: Progress Notes Filed: 01/05/2025 12:51 Note Text: Eye exam for Plaquenil toxicity received from [facility]. Exam date was 12/20/2024. Exam shows no signs of Plaquenil toxicity. Forms sent for scanning. PROGRESS Observed: 12/28/2024 9:49 AM Status: COMPLETED Source: [facility] HNO ID: [id number] Author: ZEINAB WOOD MD Service: ? Author Type: Physician Type: Progress Notes Filed: 12/28/2024 10:08 Note Text: Kourtney Novak is a 47 year old female who presents for follow up: RHEUM LABS elevated crp Negative RF, CCP, DWAYNE PREVIOUS DIAG arthralgias, FM, COPD Meningioma- due to have surgery in future INTERVAL HISTORY since last visit, has good and bad days No joint or muscle pain today Overall feels good! Continues to be on plaquenil and feels [...] capsule by mouth once daily. DULoxetine (CYMBALTA) 30 mg capsule Take one tab along with the 60mg tab to equal 90mg po qd methocarbamol (ROBAXIN) 500 mg tablet Take 1 tablet by mouth two times a day as needed. etodolac (LODINE) 400 mg tablet One tab po bid prn predniSONE (DELTASONE) 5 mg tablet TAKE 1 TO 2 TABLETS BY MOUTH EVERY DAY levothyroxine (SYNTHROID) 50 mcg tablet Take 50 mcg by mouth daily before breakfast. DULoxetine (CYMBALTA) 60 mg capsule Take one tab along with 30mg tab to equal 90mg po every day hydrOXYchloroQUINE (PLAQUENIL) 200 mg tablet Take 1 tablet by mouth two times a day. nortriptyline (PAMELOR) 25 mg capsule Take 1 capsule by mouth daily at bedtime. vilazodone (VIIBRYD) 40 mg tablet Take 40 mg by mouth once daily. (Patient taking differently: Take 10 mg by mouth once daily.) benzonatate (TESSALON PERLES ORAL) budesonide (PULMICORT) 1 [...] Take 20 mg by mouth once daily. REXULTI 2 mg tablet Take 2 mg by mouth once daily. sucralfate (CARAFATE) 1 gram tablet (Patient not taking: Reported on 09/28/2023) FAMILY HISTORY Problem Relation Age of Onset Seizures Brother Social History Tobacco Use Smoking status: Former Smokeless tobacco: Never Substance Use Topics Alcohol use: Yes Drug use: Never BP 104/65 Pulse 109 Wt 110.2 kg (242 lb 15.2 oz) BMI 41.06 kg/m? PE; Well built and nourished. Pleasant [...] returned normal. She returns today- since last visit,doing well Had 2 mild flare ups , took prednisone taper and it helped Continues to be on plaquenil and feels it is helping. Has ''not pulled a tendon while taking it'' No other complaints today -continue plaquenil bid -consider dose MTX in future in addition to plaquenil if arthralgias worsen -prednisone for flare ups only Regarding FM- agree with diagnosis Was on savella calvin feels it was not helping Tried lyrica and gabapentin in past but stopped due to side effects She was weaned of the savella and started on cymbalta with good benefit -at last visit increasde cymbalta to 90po every day from 60mg po every day with good benefit -continue lodine bid prn -advised stretching and [...] Numbness: No Memory Loss: No Swollen Glands: NoAnswers submitted by the patient for this visit: Review of Systems Rheumatology (Submitted on 12/21/2024) Fever : No Recent unintentional weight change: [...] weakness: No Muscle aches: Yes Joint swelling: Yes Morning Stiffness in Joints: Yes A rash: No Skin Color Changes: No Hair Loss: No Nail Changes: No Headaches: Yes Numbness: No Memory Loss: No Swollen Glands: No CNOV Observed: 12/28/2024 9:20 AM Status: COMPLETED Source: [facility] Office Visit (MAGDALENASHANNON) KOURTNEY NOVAK ([id number]) 1975 F Date Time Provider Department 12/28/24 9:20 AM ZEINAB WOOD During your visit today, we recorded the following information about you: Pulse Blood pressure Weight 109/minute 104/65 110.2 kg Zeinab Wood MD 12/28/2024 10:08 AM Signed Kourtney Johnson Kishore is a 47 year old female who presents for follow up: RHEUM LABS elevated crp Negative RF, CCP, DWAYNE PREVIOUS DIAG arthralgias, FM, COPD Meningioma- due to have surgery in future INTERVAL HISTORY since last visit, has good and bad days No joint or muscle pain today Overall feels good! Continues to be on plaquenil and feels [...] capsule by mouth once daily. DULoxetine (CYMBALTA) 30 mg capsule Take one tab along with the 60mg tab to equal 90mg po qd methocarbamol (ROBAXIN) 500 mg tablet Take 1 tablet by mouth two times a day as needed. etodolac (LODINE) 400 mg tablet One tab po bid prn predniSONE (DELTASONE) 5 mg tablet TAKE 1 TO 2 TABLETS BY MOUTH EVERY DAY levothyroxine (SYNTHROID) 50 mcg tablet Take 50 mcg by mouth daily before breakfast. DULoxetine (CYMBALTA) 60 mg capsule Take one tab along with 30mg tab to equal 90mg po every day hydrOXYchloroQUINE (PLAQUENIL) 200 mg tablet Take 1 tablet by mouth two times a day. nortriptyline (PAMELOR) 25 mg capsule Take 1 capsule by mouth daily at bedtime. vilazodone (VIIBRYD) 40 mg tablet Take 40 mg by mouth once daily. (Patient taking differently: Take 10 mg by mouth once daily.) benzonatate (TESSALON PERLES ORAL) budesonide (PULMICORT) 1 [...] Take 20 mg by mouth once daily. REXULTI 2 mg tablet Take 2 mg by mouth once daily. sucralfate (CARAFATE) 1 gram tablet (Patient not taking: Reported on 09/28/2023) FAMILY HISTORY Problem Relation Age of Onset Seizures Brother Social History Tobacco Use Smoking status: Former Smokeless tobacco: Never Substance Use Topics Alcohol use: Yes Drug use: Never BP 104/65 Pulse 109 Wt 110.2 kg (242 lb 15.2 oz) BMI 41.06 kg/m? PE; Well built and nourished. Pleasant [...] returned normal. She returns today- since last visit,doing well Had 2 mild flare ups , took prednisone taper and it helped Continues to be on plaquenil and feels it is helping. Has ''not pulled a tendon while taking it'' No other complaints today -continue plaquenil bid -consider dose MTX in future in addition to plaquenil if arthralgias worsen -prednisone for flare ups only Regarding FM- agree with diagnosis Was on savella biut feels it was not helping Tried lyrica and gabapentin in past but stopped due to side effects She was weaned of the savella and started on cymbalta with good benefit -at last visit increasde cymbalta to 90po every day from 60mg po every day with good benefit -continue lodine bid prn -advised stretching and [...] No Memory Loss: No Swollen Glands: No Answers submitted by the patient for this visit: Review of Systems Rheumatology (Submitted on 12/21/2024) Fever : No Recent unintentional weight change: [...] weakness: No Muscle aches: Yes Joint swelling: Yes Morning Stiffness in Joints: Yes A rash: No Skin Color Changes: No Hair Loss: No Nail Changes: No Headaches: Yes Numbness: No Memory Loss: No Swollen Glands: No Allergies As of Date: 12/28/2024 (No Known Allergies) Date Reviewed: 12/28/2024 Reviewed by: Rohit Moreno MA - Fully Assessed Reason for Visit: Follow Up [171] Primary Visit Diagnosis:Inflammatory arthritis [M19.90] Other Visit Diagnoses:Fibromyalgia [M79.7] Encounter for medication monitoring [Z51.81] Prescriptions as of 12/28/2024 - DULoxetine (CYMBALTA) 60 mg capsule Take 1 capsule by mouth once daily. - DULoxetine (CYMBALTA) 30 mg capsule Take one tab along with the 60mg tab to equal 90mg po qd - methocarbamol (ROBAXIN) 500 mg tablet Take 1 tablet by mouth two times a day as needed. - etodolac (LODINE) 400 mg tablet One tab po bid prn - predniSONE (DELTASONE) 5 mg tablet TAKE 1 TO 2 TABLETS BY MOUTH EVERY DAY - levothyroxine (SYNTHROID) 50 mcg tablet Take 50 mcg by mouth daily before breakfast. - DULoxetine (CYMBALTA) 60 mg capsule Take one tab along with 30mg tab to equal 90mg po every day - hydrOXYchloroQUINE (PLAQUENIL) 200 mg tablet Take 1 tablet by mouth two times a day. - nortriptyline (PAMELOR) 25 mg capsule Take [...] gram tablet Problem List As Of Date 12/28/2024 Noted Resolved Intracranial meningioma (HCC) [D32.0] 06/01/2023 Chronic tension-type headache, intractable [G44*06/01/2023 Level of Service: OFFICE/OUTPATIENT ESTABLISHED MOD MDM 30 MIN [95419] Additional E/M codes: VISIT CPLX INHERENT EANDM ASSOC WITH MED * Disposition: Return in about 6 months (around 06/29/2025) for FM 20m. Follow-up and Disposition History for Encounter Date Provider Department Center 12/28/2024 [id number]-GWEXTHZEINAB WOOD Rej Letter Text Encounter Status:Closed by ZEINAB WOOD on 12/28/24 XR WRIST RT MIN 3V* Observed: 12/27/2024 4:43 PM Status: COMPLETED Source: [facility] [place] [facility] [address] [place] [address] XRay Report Signed Patient: Kourtney Novak MR#: [id number] : 1975 Acct:[id number] Age/Sex: 49 / F ADM Date: 12/27/24 [place] [facility] [place] Type: [facility] Attending Dr: Elyssa Gomes MD Copies to: Elyssa Gomes MD Ordering Provider: Elyssa Gomes MD Date of Service: 12/27/24 XR/XR wrist RT min 3V*: M25.531 - Pain in right wrist 4 views of the right wrist INDICATION: Right wrist x-ray 09/24/2022 FINDINGS: There is no evidence acute fracture or dislocation. Progression of the radiocarpal joint space narrowing and remodeling along the distal radius with articular sclerosis. Subchondral cystic change involving the radial radius noted distally. Progression areas of remodeling of the lunate with progressive areas of sclerosis and subchondral cystic changes may suggest progression of the AVN/degenerative change. Widening of the scapholunate interval. Mild soft tissue swelling anterior and dorsal wrist. XR/XR wrist RT min 3V* IMPRESSION: Progression of the radiocarpal degenerative changes in the suspected areas of subchondral lucency involving the lunate and articular surface of the radius. 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 Impression dictated by: Lincoln Hoffmann M.D.12/27/2024 4:47 PM Dictation Location: [place] [address] Transcribed By: [facility] 12/27/241646 Dictated By: Lincoln Hoffmann MD 12/27/241642 Signed By: <Electronically signed by Lincoln Hoffmann MD in OV> 12/27/241646 COMPLETE BLOOD COUNT AUTO DIFF Collected: 12/13/2024 3:10 PM Status: F Source: [facility] TYPE CODE TESTS RESULT OUT OF RANGE REFERENCE UNITS LAB WBC White Blood Count 8.5 Normal 3.8-11.6 10*3/uL LAB UNWBC Uncorrected WBC 8.5 Normal 3.8-11.6 10*3/uL LAB RBC Red Blood Count 4.22 Normal 3.60-5.00 10*6/u L LAB HGB Hemoglobin 12.7 Normal 11.8-15.4 g/dL LAB HCT Hematocrit 38.5 Normal 34.0-46.4 % LAB MCV Mean Corpuscular Volume 91.4 Normal 80-100 fL LAB MCH Mean Corpuscular Hemoglobin 30.2 Normal 24.7-34.3 pg LAB MCHC Mean Corpuscular HGB Conc 33.1 Normal 32.0-35.0 g/dL LAB RDW Red Cell Distribution Width 13.3 Normal 11.9-15.3 % LAB PLT Platelet Count 372 Normal 150-450 10*3/uL LAB MPV Mean Platelet Volume 8.6 Normal 6.3-10.7 fL LAB NE% Neutrophils % (Auto) 54.4 . % LAB LY% Lymphocytes % (Auto) 30.8 . % LAB MO% Monocytes % (Auto) 11.1 . % LAB EO% Eosinophils % (Auto) 2.7 . % LAB BA% Basophils % (Auto) 1.0 . % LAB NRBC% NRBC% 0.1 Normal 0-0.5 /100{WBC} LAB NE# Neutrophils # (Auto) 4.6 Normal 1.8-7.7 10*3/uL LAB LY# Lymphocytes # (Auto) 2.6 Normal 1.00-4.8 10*3/uL LAB MO# Monocytes # (Auto) 0.9 High 0.0-0.8 10*3/uL LAB EO# Eosinophils # (Auto) 0.2 Normal 0.0-0.45 10*3/uL LAB BA# Basophils # (Auto) 0.1 Normal 0.0-0.2 10*3/uL Result Comment: PERFORMED BY : [place] [address] PATHOLOGIST TUBE BUILDING MACHINE OPERATOR PAKO RAMACHANDRAN M.D. Performed By: #### FE, MARIELLA, CBC #### [address] IRON Collected: 5 3:10 PM Status: F Source: [facility] TYPE CODE TESTS RESULT OUT OF RANGE REFERENCE UNITS LAB FE Iron 37 Low 50-212 ug/dL Performed By: #### FE, MARIELLA, CBC #### [facility] [address] [place] [id number] [facility] FERRITIN Collected: 3:10 PM Status: F Source: [facility] TYPE CODE TESTS RESULT OUT OF RANGE REFERENCE UNITS LAB MARIELLA Ferritin 56.2 Normal 11.0-306.8 ng/mL Result Comment: PERFORMED BY : [facility] [address] [facility] [place] [id number] PATHOLOGIST TUBE BUILDING MACHINE OPERATOR PAKO RAMACHANDRAN M.D. Performed By: #### FE, MARIELLA, CBC #### [facility] [address] [place] [id number] [facility] CNPN Observed: 12/05/2024 12:00 AM Status: COMPLETED Source: [facility] Telephone (NSCAMN) KOURTNEY NOVAK ([id number]) 1975 F Date Time Provider Department 12/05/24 MARIO ALBERTO PHILLIPS [facility] During your visit today, we recorded the following information about you: Mario Alberto Phillips RN 12/05/2024 10:07 AM Signed Left a detailed voice message for the patient requesting a call back to discuss her plan of care AND scheduling surgery. Contact info provided. Mario Alberto Phillips RN 12/05/2024 10:32 AM Signed Patient returned the call. She mentioned that she would want the surgery scheduled during the month of January due to her job coverage. She stated that her vision has been stable. She is due for a vision exam in February. We discussed moving up the date of the vision exam to request a comprehensive vision testing given the location of the meningioma (right medial sphenoid wing ). We discussed that Dr Pineda will be updated about the above AND that a brain MRI will be needed closer to the surgery date. Patient was made aware to reach out for questions/concerns/updates. Mario Alberto Phillips RN, Embedded Nurse Allergies As of Date: 12/05/2024 (No Known Allergies) Date Reviewed: 05/30/2024 Reviewed by: Saritha Keith MA - Fully Assessed Reason for Visit: Care Coordination [3491] Cmt: Karthik Follow up - Surgery Planning Prescriptions as of 12/05/2024 - DULoxetine (CYMBALTA) 60 mg capsule Take 1 capsule by mouth once daily. - DULoxetine (CYMBALTA) 30 mg capsule Take one tab along with the 60mg tab to equal 90mg po qd - methocarbamol (ROBAXIN) 500 mg tablet Take 1 tablet by mouth two times a day as needed. - etodolac (LODINE) 400 mg tablet One tab po bid prn - predniSONE (DELTASONE) 5 mg tablet TAKE 1 TO 2 TABLETS BY MOUTH EVERY DAY - levothyroxine (SYNTHROID) 50 mcg tablet Take 50 mcg by mouth daily before breakfast. - DULoxetine (CYMBALTA) 60 mg capsule Take one tab along with 30mg tab to equal 90mg po every day - hydrOXYchloroQUINE (PLAQUENIL) 200 mg tablet Take 1 tablet by mouth two times a day. - nortriptyline (PAMELOR) 25 mg capsule Take [...] gram tablet Problem List As Of Date 12/05/2024 Noted Resolved Intracranial meningioma (HCC) [D32.0] 06/01/2023 Chronic tension-type headache, intractable [G44*06/01/2023 Encounter Status:Closed by MARIO ALBERTO PHILLIPS on 12/05/24 XR SHOULDER LT MIN 2V* Observed: 025 4:18 PM Status: COMPLETED Source: [facility] [place] [facility] [place] [facility] [address] [place] [address] XRay Report Signed Patient: Kourtney Novak MR#: [id number] : 1975 Acct:[id number] Age/Sex: 48 / F ADM Date: 11/03/24 [place] [facility] [place] Type: [facility] Attending Dr: Mk Broderick MD Copies to: Mk Broderick MD Ordering Provider: Mk Broderick MD Date of Service: 11/03/24 XR/XR shoulder LT min 2V*: M25.512 - Pain in left shoulder 4 views left shoulder plain film HISTORY: Left shoulder pain for one month COMPARISON: 01/20/2022 ACUTE FINDINGS: None DEGENERATIVE CHANGE: Minor marginal spurring SOFT TISSUE FINDINGS: Unremarkable JOINT EFFUSION: None POSTOP CHANGES: None BONY MINERALIZATION: Adequate XR/XR shoulder LT min 2V* IMPRESSION: Similar Mild degeneration Impression dictated by: George Gray M.D.11/03/2024 4:19 PM Dictation Location: [place] [address] Transcribed By: [facility] 11/03/241618 Dictated By: George Gray DO 11/03/24 161 Signed By: <Electronically signed by George Gray DO in OV> 11/03/24 161 CNPN Observed: 10/10/2024 12:00 AM Status: COMPLETED Source: [facility] Telephone (mBeat Media[employer]) KISHOREKOURTNEY Alex ([id number]) 1975 F Date Time Provider Department 10/10/24 ZEINAB WOOD During your visit today, we recorded the following information about you: Susy Escamilla LPN 10/10/2024 4:11 PM Addendum Received fax from [facility]. States that diagnosis code M19.9 ( inflammatory arthritis ) does not pass medical necessity for the [address] regarding CBC test. They needs a different order to be placed with another diagnosis code. Please fax to Jimbo Whitten at [phone]. Notice sent to scanning . Please route to [facility] nurse for follow up Susy Escamilla LPN 10/10/2024 5:01 PM Signed Faxed new order with updated diagnosis code . sent to [phone]. Allergies As of Date: 10/10/2024 (No Known Allergies) Date Reviewed: 05/30/2024 Reviewed by: Saritha Keiht MA - Fully Assessed Reason for Visit: Embedded Nurse - Other [3607] Cmt: Lab order problem Primary Visit Diagnosis:Encounter for medication monitoring [Z51.81] Order(s):ASPARTATE AMINOTRANSFERASE/SGOT [SQAST] Order #: [id number] STANDING ALANINE AMINOTRANSFERASE / SGPT [SQALT] Order #: [id number] STANDING COMPLETE BLOOD COUNT [SQCBC] Order #: [id number] STANDING SEDIMENTATION RATE, WESTERGREN [SQWSR] Order #: [id number] STANDING C-REACTIVE PROTEIN [SQCRP] Order #: [id number] STANDING Prescriptions as of 10/10/2024 - DULoxetine (CYMBALTA) 60 mg capsule Take 1 capsule by mouth once daily. - DULoxetine (CYMBALTA) 30 mg capsule Take one tab along with the 60mg tab to equal 90mg po qd - methocarbamol (ROBAXIN) 500 mg tablet Take 1 tablet by mouth two times a day as needed. - etodolac (LODINE) 400 mg tablet One tab po bid prn - predniSONE (DELTASONE) 5 mg tablet TAKE 1 TO 2 TABLETS BY MOUTH EVERY DAY - levothyroxine (SYNTHROID) 50 mcg tablet Take 50 mcg by mouth daily before breakfast. - DULoxetine (CYMBALTA) 60 mg capsule Take one tab along with 30mg tab to equal 90mg po every day - hydrOXYchloroQUINE (PLAQUENIL) 200 mg tablet Take 1 tablet by mouth two times a day. - nortriptyline (PAMELOR) 25 mg capsule Take [...] gram tablet Problem List As Of Date 10/10/2024 Noted Resolved Intracranial meningioma (HCC) [D32.0] 06/01/2023 Chronic tension-type headache, intractable [G44*06/01/2023 Encounter Status:Closed by SUSY ESCAMILLA on 10/10/24 ASPARTATE AMINO TRANSFERASE Collected: 09/20/2024 7:1 8 AM Status: F Source: [facility] Order Comment: FASTING.JKW TYPE CODE TESTS RESULT OUT OF RANGE REFERENCE UNITS LAB AST Aspartate Amino Transferase 14 Normal 13-39 U/L Performed By: #### ESR, CBC, CRP, AST, ALT #### [facility] [address] [place] [id number] [facility] ALANINE AMINOTRANSFERASE Collected: 09/20/2024 7:18 A M Status: F Source: [facility] Order Comment: FASTING.JKW TYPE CODE TESTS RESULT OUT OF RANGE REFERENCE UNITS LAB ALT Alanine Aminotransferase 21 Normal 7-52 U/L Performed By: #### ESR, CBC, CRP, AST, ALT #### [facility] [address] [id number] [facility] C-REACTIVE PROTEIN Collected: 09/20/2024 7:18 AM Sta tus: F Source: [facility] Order Comment: FASTING.JKW TYPE CODE TESTS RESULT OUT OF RANGE REFERENCE UNITS LAB CRP C-Reactive Protein 0.7 High 0.0-0.5 mg/dL Result Comment: PERFORMED BY : [place] [address] PATHOLOGIST TUBE BUILDING MACHINE OPERATOR PAKO RAMACHANDRAN M.D. Performed By: #### ESR, CBC, CRP, AST, ALT #### [place] [id number] [facility] COMPLETE BLOOD COUNT AUTO DIFF Collected: 09/20/2024 7:18 AM Status: F Source: [facility] Order Comment: FASTING.JKW TYPE CODE TESTS RESULT OUT OF RANGE REFERENCE UNITS LAB WBC White Blood Count 7.5 Normal 3.8-11.6 10*3/uL LAB UNWBC Uncorrected WBC 7.5 Normal 3.8-11.6 10*3/uL LAB RBC Red Blood Count 3.94 Normal 3.60-5.00 10*6/u L LAB HGB Hemoglobin 12.0 Normal 11.8-15.4 g/dL LAB HCT Hematocrit 35.8 Normal 34.0-46.4 % LAB MCV Mean Corpuscular Volume 90.8 Normal 80-100 fL LAB MCH Mean Corpuscular Hemoglobin 30.4 Normal 24.7-34.3 pg LAB MCHC Mean Corpuscular HGB Conc 33.5 Normal 32.0-35.0 g/dL LAB RDW Red Cell Distribution Width 13.0 Normal 11.9-15.3 % LAB PLT Platelet Count 353 Normal 150-450 10*3/uL LAB MPV Mean Platelet Volume 8.5 Normal 6.3-10.7 fL LAB NE% Neutrophils % (Auto) 56.7 . % LAB LY% Lymphocytes % (Auto) 28.4 . % LAB MO% Monocytes % (Auto) 13.1 . % LAB EO% Eosinophils % (Auto) 1.2 . % LAB BA% Basophils % (Auto) 0.6 . % LAB NRBC% NRBC% 0.0 Normal 0-0.5 /100{WBC} LAB NE# Neutrophils # (Auto) 4.3 Normal 1.8-7.7 10*3/uL LAB LY# Lymphocytes # (Auto) 2.1 Normal 1.00-4.8 10*3/uL LAB MO# Monocytes # (Auto) 1.0 High 0.0-0.8 10*3/uL LAB EO# Eosinophils # (Auto) 0.1 Normal 0.0-0.45 10*3/uL LAB BA# Basophils # (Auto) 0.0 Normal 0.0-0.2 10*3/uL Performed By: #### ESR, CBC, CRP, AST, ALT #### [facility] [address] [id number] [facility] ERYTHROCYTE SEDIMENTATION RATE Collected: 09/20/2024 7:18 AM Status: F Source: [facility] Order Comment: FASTING.JKW TYPE CODE TESTS RESULT OUT OF RANGE REFERENCE UNITS LAB ESR Erythrocyte Sedimentation Rate 9 Normal 0-19 Result Comment: PERFORMED BY : [place] [address] PATHOLOGIST TUBE BUILDING MACHINE OPERATOR PAKO RAMACHANDRAN M.D. Performed By: #### ESR, CBC, CRP, AST, ALT #### [facility] [address] [place] [id number] [facility] CNPN Observed: 09/20/2024 12:00 AM Status: COMPLETED Source: [facility] Telephone (Around Knowledge) KOHLENBERG,KOURTNEY L ([id number]) 1975 F Date Time Provider Department 09/20/24 ZEINAB WOOD During your visit today, we recorded the following information about you: Susy Escamilla LPN 09/20/2024 5:47 PM Signed Lab results received from [facility] . Copy sent to scan, copy sent to provider folder for review. . Allergies As of Date: 09/20/2024 (No Known Allergies) Date Reviewed: 05/30/2024 Reviewed by: Saritha Keith MA - Fully Assessed Reason for Visit: Results [95] Cmt: Lab results from [facility] Prescriptions as of 09/21/2024 - etodolac (LODINE) 400 mg tablet One tab po bid prn - predniSONE (DELTASONE) 5 mg tablet TAKE 1 TO 2 TABLETS BY MOUTH EVERY DAY - levothyroxine (SYNTHROID) 50 mcg tablet Take 50 mcg by mouth daily before breakfast. - DULoxetine (CYMBALTA) 60 mg capsule Take one tab along with 30mg tab to equal 90mg po every day - DULoxetine (CYMBALTA) 30 mg capsule Take one tab along with the 60mg tab to equal 90mg po qd - hydrOXYchloroQUINE (PLAQUENIL) 200 mg tablet Take 1 tablet by mouth two times a day. - methocarbamol (ROBAXIN) 500 mg tablet Take 1 tablet by mouth two times a day as needed. - nortriptyline (PAMELOR) 25 mg capsule Take 1 capsule by mouth daily at bedtime. - DULoxetine (CYMBALTA) 60 mg capsule Take [...] gram tablet Problem List As Of Date 09/20/2024 Noted Resolved Intracranial meningioma (HCC) [D32.0] 06/01/2023 Chronic tension-type headache, intractable [G44*06/01/2023 Encounter Status:Closed by SUSY ESCAMILLA on 09/21/24 MM SCREENING MAMMO BI W/CAD Observed: 09/16/2024 2:37 PM Status: COMPLETED Source: [facility] [place] [address] Mammography Report Signed Patient: Kourtney Novak MR#: [id number] : 1975 Acct:[id number] Age/Sex: 48 / F ADM Date: 09/16/24 Loc: [place] Room: Type: [facility] Attending Dr: Referral Self Copies to: Sammie Camacho MD SELF,REFERRAL Ordering Provider: SELF,REFERRAL Date of Service: 09/16/24 MM/MM screening mammo BI w/CAD: SCREENING BILATERAL SCREENING MAMMOGRAMS - FULL FIELD DIGITAL WITH TOMOSYNTHESIS CLINICAL DATA: Screening for malignancy. FINDINGS: Craniocaudal and mediolateral oblique views of both breasts were obtained with Tomosynthesis using low-dose digital technique. Comparison is made to prior studies on 01/11/2019 and 03/27/2020, 04/19/2021, and 04/29/2023 This examination was reviewed with the aid of CAD. Mole markers are placed bilaterally. The breast parenchyma has been largely replaced by fat. Several scattered benign calcifications are noted. There are no developing masses, typically malignant calcifications or architectural distortion. There has been no significant interval change. MM/MM screening mammo BI w/CAD IMPRESSION: NO MAMMOGRAPHIC EVIDENCE OF MALIGNANCY. ROUTINE FOLLOW-UP IS RECOMMENDED IN ONE YEAR. RESULT CODE: 1 Negative DENSITY CODE: 1 (<25% glandular) FOLLOW UP: 1YR The false-negative rate of mammography is approximately 10-percent. Management of a palpable abnormality must be based on clinical grounds. Patient was entered into a reminder system with a target due date for the next mammogram. Impression dictated by: Lincoln Hoffmann M.D.09/16/2024 2:40 PM Dictation Location: [facility] Transcribed By: [facility] 09/16/24 1440 Dictated By: Lincoln Hoffmann MD 09/16/24 1437 Signed By: <Electronically signed by Lincoln Hoffmann MD in OV> 09/16/24 1440 TRIIODOTHYRONINE (T3) FREE Collected: 06/22/2024 7:26 AM Status: F Source: [facility] Order Comment: FASTING. JKW TYPE CODE TESTS RESULT OUT OF RANGE REFERENCE UNITS LAB T3F Triiodothyronine (T3) Free 2.96 Normal 2.50-3.90 pg/mL Result Comment: PERFORMED BY : [place] [address] PATHOLOGIST TUBE BUILDING MACHINE OPERATOR MONIK SILVESTRE M.D. Performed By: #### T4T, T3F, TSH3 #### [facility] [address] [place] [address] THYROXINE (T4) TOTAL Collected: 06/22/2024 7:26 AM S tatus: F Source: [facility] Order Comment: FASTING. JKW TYPE CODE TESTS RESULT OUT OF RANGE REFERENCE UNITS LAB T4T Thyroxine (T4) Total 11.23 Normal 5.39-11.82 ug/dL Performed By: #### T4T, T3F, TSH3 #### [facility] [address] [place] [address] THYROID STIMULATING HORMONE Collected: 06/22/2024 7:2 6 AM Status: F Source: [facility] Order Comment: FASTING. JKW TYPE CODE TESTS RESULT OUT OF RANGE REFERENCE UNITS LAB TSH3 Thyroid Stimulating Hormone 2.24 Normal 0.45-5.33 u[iU]/mL Result Comment: PERFORMED BY : [place] [address] PATHOLOGIST TUBE BUILDING MACHINE OPERATOR MONIK SILVESTRE M.D. Performed By: #### T4T, T3F, TSH3 #### [facility] [address] [id number] [facility] PROGRESS Observed: 05/30/2024 9:52 AM Status: COMPLETED Source: [facility] HNO ID: [id number] Author: ZEINAB WOOD MD Service: ? Author [...] No Memory Loss: No Swollen Glands: No CNOV Observed: 05/30/2024 9:40 AM Status: COMPLETED Source: [facility] Office Visit (RHEUAV) KOURTNEY NOVAK ([id number]) 1975 F Date Time Provider Department 05/30/24 [...] No Memory Loss: No Swollen Glands: No Allergies As of Date: 05/30/2024 (No Known Allergies) Date Reviewed: 05/30/2024 Reviewed by: Saritha Keith MA - Fully Assessed Reason for Visit: Joint Pain [238] Primary Visit Diagnosis:Inflammatory arthritis [M19.90] Other Visit Diagnoses:Fibromyalgia [M79.7] Medication monitoring encounter [Z51.81] Order(s):DULoxetine (CYMBALTA) 60 mg capsuleTake one tab along with 30mg tab to equal 90mg po every dayDisp: 30 capsuleRfl: 6 DULoxetine (CYMBALTA) 30 mg capsuleTake one tab along with the 60mg tab to equal 90mg po qdDisp: 30 capsuleRfl: 6 hydrOXYchloroQUINE (PLAQUENIL) 200 mg tabletTake 1 tablet by mouth two times a day.Disp: 60 tabletRfl: 6 Prescriptions as of 05/30/2024 - levothyroxine (SYNTHROID) 50 mcg tablet Take 50 mcg by mouth daily before breakfast. - DULoxetine (CYMBALTA) 60 mg capsule Take one tab along with 30mg tab to equal 90mg po every day - DULoxetine (CYMBALTA) 30 mg capsule Take one tab along with the 60mg tab to equal 90mg po qd - hydrOXYchloroQUINE (PLAQUENIL) 200 mg tablet Take 1 tablet by mouth two times a day. - methocarbamol (ROBAXIN) 500 mg tablet Take 1 tablet by mouth two times a day as needed. - predniSONE (DELTASONE) 5 mg tablet TAKE 1 TO 2 TABLETS BY MOUTH EVERY DAY - nortriptyline (PAMELOR) 25 mg capsule Take 1 capsule by mouth daily at bedtime. - etodolac (LODINE) 400 mg tablet One tab po bid prn - DULoxetine (CYMBALTA) 60 mg capsule Take [...] gram tablet Problem List As Of Date 05/30/2024 Noted Resolved Intracranial meningioma (HCC) [D32.0] 06/01/2023 Chronic tension-type headache, intractable [G44*06/01/2023 Prescriptions ordered this encounter Disp Refills Start End DULOXETINE 60 MG CAPSULE,DELAYED REL* 30 c* 6 05/30/2024 Sig: Take one tab along with 30mg tab to equal 90mg po every day DULOXETINE 30 MG CAPSULE,DELAYED REL* 30 c* 6 05/30/2024 Sig: Take one tab along with the 60mg tab to equal 90mg po qd HYDROXYCHLOROQUINE 200 MG TABLET 60 t* 6 05/30/2024 Route: ORAL Sig: Take 1 tablet by mouth two times a day. Medications Discontinued During This Encounter Prescriptions - hydrOXYchloroQUINE (PLAQUENIL) 200 mg tablet (Discontinued) take 1 tablet by mouth twice daily Disposition: Return in about 6 months (around 11/27/2024) for inflammatory arthritis 20m. Follow-up and Disposition History for Encounter Date Provider Department Center 05/30/2024 [id number] WOOD RHESHOSHANAV Rej Letter Text Encounter Status:Closed by ZEINAB WOOD on 05/30/24 TRIIODOTHYRONINE (T3) FREE Collected: 05/12/2024 7:28 AM Status: F Source: [facility] Order Comment: FASTING. JKW TYPE CODE TESTS RESULT OUT OF RANGE REFERENCE UNITS LAB T3F Triiodothyronine (T3) Free 3.61 Normal 2.50-3.90 pg/mL Result Comment: PERFORMED BY : [facility] [place] [address] PATHOLOGIST TUBE BUILDING MACHINE OPERATOR MONIK SILVESTRE M.D. Performed By: #### [id number] , TSH3, A1C WTH eA, DIFF CBC, [id number], LIPID, FE, CMP, T3F, T4T #### [facility] [address] #### INSULIN #### [facility] , A1C WITH ESTIMATED AVERAGE GLU Collected: 05/12/2024 7:28 AM Status: F Source: F [facility] Order Comment: FASTING. JKW TYPE CODE TESTS RESULT OUT OF RANGE REFERENCE UNITS LAB .A1C Hemoglobin A1C 5.6 Normal 4.3-5.6 % Result Comment: Increased ri sk for diabetes: 5.7 - 6.4 diabetes: >6.4 glycemic control for adults with diabetes: <7.0 LAB eAG Estimated Average Glucose 114 mg/dL Result Comment: PERFORMED BY : [place] [address] PATHOLOGIST TUBE BUILDING MACHINE OPERATOR MONIK SILVESTRE M.D. Performed By: #### [id number] , TSH3, A1C WTH eA, DIFF CBC, [id number], LIPID, FE, CMP, T3F, T4T #### [address] #### INSULIN #### [facility] , COMPREHENSIVE METABOLIC PANEL Collected: 05/12/2024 7 :28 AM Status: F Source: [facility] Order Comment: FASTING. JKW TYPE CODE TESTS RESULT OUT OF RANGE REFERENCE UNITS LAB GLU Glucose 111 High 70-100 mg/dL Result Comment: Random Gluco se Reference Range is dependent on time and content of last meal. Glucose of more than 200 mg/dL in a nonstressed, ambulatory subject supports the diagnosis of Diabetes Mellitus. ADA recommended reference range LAB BUN Blood Urea Nitrogen 20 Normal 7-25 mg/d L LAB CREATT Creatinine 1.05 Normal 0.60-1.20 mg/dL LAB GFReNR Estimated GFR > 60.0 LAB NA Sodium 136 Normal 136-145 mmol/L LAB K Potassium 4.1 Normal 3.5-5.1 mmol/L LAB CL Chloride 101 Normal 98-107 mmol/L LAB CO2 Carbon Dioxide 27.0 Normal 21.0-31.0 mmol/L LAB GAP Anion Gap 12.1 Normal 6.0-15.0 LAB CA Calcium 9.4 Normal 8.6-10.3 mg/dL LAB TP Total Protein 6.1 Low 6.4-8.9 g/dL LAB ALB Albumin Level 4.1 Normal 3.5-5.7 g/dL LAB GLOB Globulin 2.0 g/dL LAB AGRATIO Albumin/Globulin Ratio 2.1 LAB BILIT Bilirubin,Total 0.4 Normal 0.3-1.0 mg/dL LAB AST Aspartate Amino Transferase 11 Low 13-39 U/L LAB ALT Alanine Aminotransferase 17 Normal 7-52 U/L LAB ALP Alkaline Phosphatase 42 Normal 34-104 U/L Performed By: #### [id number] , TSH3, A1C WTH eA, DIFF CBC, [id number], LIPID, FE, CMP, T3F, T4T #### [facility] [address] [place] [address] #### INSULIN #### [facility] , IRON Collected: 7:28 AM Status: F Source: [facility] Order Comment: FASTING. JKW TYPE CODE TESTS RESULT OUT OF RANGE REFERENCE UNITS LAB FE Iron 80 Normal 50-212 ug/dL Performed By: #### [id number] , TSH3, A1C WTH eA, DIFF CBC, [id number], LIPID, FE, CMP, T3F, T4T #### [facility] [address] [place] [address] [place] #### INSULIN #### [facility] , LIPID PANEL Collected: 05/12/2024 7:28 AM Status: F Source: [facility] Order Comment: FASTING. JKW TYPE CODE TESTS RESULT OUT OF RANGE REFERENCE UNITS LAB CHOL Cholesterol 191 Normal 140-200 mg/dL Result Comment: Chol less th an 200 mg/dl low risk Chol 201-239 mg/dl borderline risk Chol 240 mg/dl and greater high risk LAB HDL HDL Cholesterol 86 Normal 23-92 mg/dL Result Comment: HDL CHOL ATP -III CLASSIFICATION Cardiovascular Risk HDL > or equal to 60 mg/dL LOW HDL < 40 mg/dL HIGH LAB TRIG W REF Triglyceride w/Reflex 146 Normal 0-149 mg/dL Result Comment: TRIG ATP III CLASSIFICATION TRIG less than 150 mg/dL Normal TRIG 150-199 mg/dL Borderline high TRIG 200-500 mg/dL High TRIG greater than 500 mg/dL Very high Standard traceable to the Center for Disease Conrtrol and Prevention (CDC) test method. LAB LDLC LDL Cholesterol,Calc ulated 76 Normal 0-100 mg/dL Result Comment: LDL ATP III CLASSIFICATION LDL less than 100 mg/dL Optimal LDL 100-129 mg/dL Near or above optimal LDL 130-159 mg/dL Borderline high LDL 160-189 mg/dL High LDL greater than 189 mg/dL Very high LAB VLDL VLDL CHOLESTEROL 29 mg/dL LAB CHLHDL Chol/HDL Ratio 2.2 <5.0 Performed By: #### [id number] , TSH3, A1C WTH eA, DIFF CBC, [id number], LIPID, FE, CMP, T3F, T4T #### [address] #### INSULIN #### [facility] , VIT. B12/FOLATE PROFILE Collected: 04/15 7:28 AM Status: F Source: [facility] Order Comment: FASTING. JKW TYPE CODE TESTS RESULT OUT OF RANGE REFERENCE UNITS LAB B12 Vitamin B12 306 Normal 180-914 pg/mL LAB FOL Folate 7.8 >5.9 ng/mL Result Comment: Folate refer ence range: >5.9 ng/ml The WHO technical consultation on folate and vitamin b12 deficiencies has determined that folate concentrations less than 4 ng/ml are considered deficient. Performed By: #### [id number] , TSH3, A1C WTH eA, DIFF CBC, [id number], LIPID, FE, CMP, T3F, T4T #### [facility] [address] [place] [address] [place] #### INSULIN #### [facility] , THYROXINE (T4) TOTAL Collected: 05/12/2024 7:28 AM S tatus: F Source: [facility] Order Comment: FASTING. JKW TYPE CODE TESTS RESULT OUT OF RANGE REFERENCE UNITS LAB T4T Thyroxine (T4) Total 11.59 Normal 5.39-11.82 ug/dL Performed By: #### [id number] , TSH3, A1C WTH eA, DIFF CBC, [id number], LIPID, FE, CMP, T3F, T4T #### [address] #### INSULIN #### [facility] , THYROID STIMULATING HORMONE Collected: 05/12/2024 7:2 8 AM Status: F Source: [facility] Order Comment: FASTING. JKW TYPE CODE TESTS RESULT OUT OF RANGE REFERENCE UNITS LAB TSH3 Thyroid Stimulating Hormone 6.32 High 0.45-5.33 u[iU]/mL Performed By: #### [id number] , TSH3, A1C WTH eA, DIFF CBC, [id number], LIPID, FE, CMP, T3F, T4T #### [address] #### INSULIN #### [facility] , VITAMIN D 25 HYDROXY TOTAL Collected: 0 05/12/2024 7:28 AM Status: F Source: [facility] Order Comment: FASTING. JKW TYPE CODE TESTS RESULT OUT OF RANGE REFERENCE UNITS LAB [id number] Vitamin D 25 Hydroxy Total 39.9 Normal 30-100 ng/mL Result Comment: VITAMIN D ST ATUS 25(OH)VITAMIN D RANGE (ng/mL) Deficient <20 Insufficient 20 to <30 Sufficient 30 to 100 Reference: Nain MF,Anum NC, Brynn APARICIO, et al. Evaluation,treatment, and prevention of vitamin D deficiency; an Endocrine Society clinical practice guideline. JCEM. 2010; 96(7):1911-30. PERFORMED BY: [place] [address] PATHOLOGIST TUBE BUILDING MACHINE OPERATOR MONIK SILVESTRE M.D. Performed By: #### [id number] , TSH3, A1C WTH eA, DIFF CBC, [id number], LIPID, FE, CMP, T3F, T4T #### [address] #### INSULIN #### [facility] , DIFF AND CBC Collected: 05/12/2024 7:28 AM Status: F Source: [facility] Order Comment: FASTING. JKW TYPE CODE TESTS RESULT OUT OF RANGE REFERENCE UNITS LAB WBC White Blood Count 11.8 High 3.8-11.6 10*3/ uL LAB UNWBC Uncorrected WBC 11.8 High 3.8-11.6 10*3/uL LAB RBC Red Blood Count 4.30 Normal 3.60-5.00 LAB HGB Hemoglobin 12.9 Normal 11.8-15.4 g/dL LAB HCT Hematocrit 39.1 Normal 34.0-46.4 % LAB MCV Mean Corpuscular Volume 90.8 Normal 80-100 fL LAB MCH Mean Corpuscular Hemoglobin 29.9 Normal 24.7-34.3 pg LAB MCHC Mean Corpuscular HGB Conc 33.0 Normal 32.0-35.0 g/dL LAB RDW Red Cell Distribution Width 13.9 Normal 11.9-15.3 % LAB PLT Platelet Count 392 Normal 150-450 10*3/uL LAB MPV Mean Platelet Volume 8.1 Normal 6.3-10.7 fL LAB SEG Segmented Neutrophils 54 Normal 50-70 % LAB BAND Band Neutrophils 1 Normal 0-5 % LAB LYMPH Lymphocytes 28 Normal 18-42 % LAB MON Monocytes 12 High 2-11 % LAB EOS Eosinophils 2 Normal 1-3 % LAB BASO Basophils 1 Normal 0-2 % LAB META Metamyelocytes 2 High 0-0 % LAB ANISO Anisocytosis Slight LAB MICR Microcytosis Slight LAB PLT EST Platelet Estimate Normal Normal LAB PLTM Platelet Morphology Normal Normal Result Comment: PERFORMED BY : [place] [address] PATHOLOGIST TUBE BUILDING MACHINE OPERATOR MONIK SILVESTRE M.D. Performed By: #### [id number] , TSH3, A1C WTH eA, DIFF CBC, RTCP25EP, LIPID, FE, CMP, T3F, T4T #### [facility] [address] [place] [address] #### INSULIN #### [facility] , INSULIN Collected: 4 7:28 AM Status: F Source: [facility] Order Comment: FASTING. JKW TYPE CODE TESTS RESULT OUT OF RANGE REFERENCE UNITS LAB INSULIN Insulin 38.1 High 2.6-24.9 u[iU]/mL Result Comment: Performed at : [facility] [address] [id number] Football Scout: Maxim Daniel PhD, Phone: [phone] PERFORMED BY: [place] [address] PATHOLOGIST TUBE BUILDING MACHINE OPERATOR MONIK SILVESTRE M.D. Performed By: #### [id number] , TSH3, A1C WTH eA, DIFF CBC, [id number], LIPID, FE, CMP, T3F, T4T #### [address] #### INSULIN #### [facility] , CNPN Observed: 03/08/2024 12:00 AM Status: COMPLETED Source: [facility] Telephone (NSCAMN) KOURTNEY NOVAK ([id number]) 1975 F Date Time Provider Department 03/08/24 ERIK PINEDA NSCAMN During your visit today, we recorded the following information about you: Brain Ruth 03/08/2024 1:49 PM Signed General Call Caller : Moira harrison at [facility] Contact Reason for Call : Nurse would like to confirm that pt is allowed to receive steroid injection prior to surgery-80mg of kenalog Patient requesting return call ? Yes Mario Alberto Phillips, VENUS 03/08/2024 2:29 PM Signed Spoke with nurse Pizarro. We discussed that the patient's epidural steroid injection on 03/14/2024 for her neck pain (C7/T1) is far out from her surgery for the craniotomy with Dr Erik Pineda (04/04/24). Mario Alberto Phillips RN, Embedded Nurse Mario Alberto Phillips RN 03/08/2024 2:42 PM Addendum ADDENDUM: March 08, 2024 2:39 PM Distance Health Visit on 02/02/2024 including the details for the patient's surgery was faxed to Moira DONOVAN ( [facility]) . Mario Alberto Phillips RN, Embedded Nurse Allergies As of Date: 03/08/2024 (No Known Allergies) Date Reviewed: 02/05/2024 Reviewed by: Rachele Fenton APRN.LUNCHROOM MONITOR - Fully Assessed Reason for Visit: epidural [...] Status:Closed by MARIO ALBERTO PHILLIPS on 03/08/24 US THYROID Observed: 02/15/2024 6:22 PM Status: COMPLETED Source: [facility] [place] [address] Ultrasound Report Signed Patient: Kourtney Novak MR#: [id number] : 1975 Acct:[id number] Age/Sex: 48 / F ADM Date: 02/15/24 Loc: Room: Type: [facility] Attending Dr: Sammie Camacho MD Ordering Provider: Sammie Camacho MD Date of Service: 02/15/24 US/US thyroid: E04.1 Copies to: Sammie Camacho MD Thyroid Ultrasound HISTORY: 14 mm LEFT [...] George Gray M.D.02/15/2024 6:25 PM Dictation Location: [place] [address] Tech: Beti Young Transcribed By: GRACIE 02/15/241824 Dictated By: George Gray DO 02/15/241821 Signed By: <Electronically signed by George Gray DO in OV> 02/15/241824 CNPN Observed: 02/10/2024 12:00 AM Status: COMPLETED Source: [facility] Telephone (NHMNS2) KISHOREKOURTNEY ([id number]) 1975 F Date Time Provider Department 02/10/24 RACHELE FENTON NHMNS2 During your visit today, we recorded the following information about you: Gifty Dash 02/10/2024 3:20 PM Signed Prior Authorization for Medications Requested by ([facility], Patient Call, Fax) : [facility] Name: [facility] Phone # : [phone] Name of Medication : Robaxin Dose : 500 mg Tablet If renewal, auth date expiration: NA Prescribing Provider: Eliceo Last OV: 02/05/2024 with Eliceo Insurance Provider : Medicare / Stumpwise. Is insurance card scanned in, including Rx info? Medicare card scanned - no RX information Insurance Phone : [facility] [place]: NICOLAS E-PA? Yes Allergies As of Date: 02/10/2024 (No Known Allergies) Date Reviewed: 02/05/2024 Reviewed by: Rachele Fenton, MARILEE.LUNCHROOM MONITOR - Fully Assessed Reason for Visit: Insurance Authorization [1513] Robaxin PA - Medicare / Stumpwise. [Other] Prescriptions as of 03/14/2024 - nortriptyline [...] Encounter Status:Closed by TERRI GARCIA on 03/14/24 XR PRE/POST MRI XRAY Observed: 4 1:43 PM Status: COMPLETED Source: [facility] [place] [address] XRay Report Signed Patient: Kourtney Novak MR#: [id number] : 1975 Acct:[id number] Age/Sex: 48 / F ADM Date: 02/09/24 Loc: [facility] Room: Type: [facility] Attending Dr: Sammie Camacho MD Copies to: Sammie Camacho MD Ordering Provider: Sammie Camacho MD Date of Service: 02/09/24 XR/XR pre/post [...] may be positional or secondary muscle spasm. Kmro-en-vuyuzpwe degenerative changes are noted at C5-C6 and C6-C7 as above. Lumbar spine: There is a dextro convex curvature. No fracture or subluxation. Impression dictated by: Damion Milton M.D.02/09/2024 1:47 PM Dictation Location: [place] [address] Transcribed By: [facility] 02/09/24 1347 Dictated By: Damion Milton II, MD 02/09/24 1343 Signed By: <Electronically signed by Damion Milton II, MD in OV> 02/09/24 1347 MR LUMBAR SPINE WO CON Observed: 024 1:31 PM Status: COMPLETED Source: [facility] [place] [address] MRI Report Signed Patient: Kourtney Novak MR#: [id number] : 1975 Acct:[id number] Age/Sex: 48 / F ADM Date: 02/09/24 Loc: [facility] Room: Type: [facility] Attending Dr: Sammie Camacho MD Copies to: Sammie Camacho MD Ordering Provider: Sammie Camacho MD Date of Service: 02/09/24 MR/MR lumbar [...] narrowing is noted, otherwise. Impression dictated by: aDmion Milton M.D.02/09/2024 1:35 PM Dictation Location: [place] [address] Transcribed By: [facility] 02/09/24 1335 Dictated By: Damion Milton II, MD 02/09/24 1331 Signed By: <Electronically signed by Damion Milton II, MD in OV> 02/09/24 1335 MR CERVICAL SPINE WO CON Observed: 02/08 1:20 PM Status: COMPLETED Source: [facility] [place] [address] MRI Report Signed Patient: Kourtney Novak MR#: [id number] : 1975 Acct:[id number] Age/Sex: 48 / F ADM Date: 02/09/24 [facility]: Type: REG CLI Attending Dr: Sammie Camacho MD Copies to: Sammie Camacho MD Ordering Provider: Sammie Camacho MD Date of Service: 02/09/24 MR/MR cervical [...] changes noted, as above. Impression dictated by: Damion Milton M.D.02/09/2024 1:27 PM Dictation Location: [place] [address] Transcribed By: [facility] 02/09/24 132 Dictated By: Damion Milton II, MD 02/09/24 1320 Signed By: <Electronically signed by Damion Milton II, MD in OV> 02/09/24 1327 PROGRESS Observed: 02/05/2024 7:00 AM Status: COMPLETED Source: [facility] HNO ID: [id number] Author: RACHELE FENTON APRN.LUNCHROOM MONITOR Service: ? Author Type: Nurse Practitioner Type: [...] visit. Either the patient or their legal sales representative health insurance has been informed of the risks and [...] these with the patient: yes Rachele Fenton APRN.LUNCHROOM MONITOR HEADACHE SCORES: 06/19/2023 02/01/2024 Headache Questions ID [...] soft tissue component identified in the orbit. Director Of Strategy & Mobile: [facility] Transcribe Date/Time: Jan 31 2024 3:33P Dictated [...] and clear, coherent, and relevant. Short and alf memory, cognition and general fund of knowledge [...] Service: Virtual Visit 30 minutes Rachele Fenton APRN.[facility] Headache Section [facility] February 05, 2024 ALLERGIES DATE TYPE / CODE NAME / CODE REACTION SEVERITY SOURCE 12/27/2024 Drug Allergy/26182958 2(SNOMED CT) No Known Allergies/[id number] (RXNORM) Unknown [facility] Drug Class/454564029( SNOMED CT) NO KNOWN ALLERGIES [facility] ENCOUNTERS ADMIT/DISCHARGE ACCOUNT NUMBER ADMITTING ENCOUNTER CLASS LOCATION SOURCE 01/06/2025/01/07/20 [id number] [facility] 12/28/2024/12/29/19 [id number] [facility]AVRM [facility] 12/27/2024/12/28/19 [id number] Elyssa [facility]omes [facility] 12/13/2024/12/14/19 [id number] Sammie Camacho [facility] 11/03/2024/11/03/19 [id number] Mk Broderick [facility] 09/20/2024/09/20/19 [id number] Zeinab Wood [facility] 09/16/2024/09/16/19 [id number] Self, Referral [facility] 08/01/2024/08/01/20 24 [id number] [facility] 07/18/2024/07/18/20 24 [id number] Ambulatory [facility]PM [facility] 07/13/2024/07/13/20 24 [id number] Ambulatory Building:[facility] 07/04/2024/07/04/20 24 [id number] Ambulatory PM [facility]PM [facility] 06/22/2024/06/22/20 24 [id number] Sammie Camacho [facility] 06/20/2024/10/07 24 [id number] [facility] 05/30/2024/05/30/20 24 [id number] Ambulatory [facility] HospitalBuil ding:AVRM [facility] 05/12/2024/05/12/20 24 [id number] Sammie Camacho [facility] 05/09/2024/05/09/20 24 [id number] [facility] 04/25/2024/04/25/20 24 [id number] [facility] 03/07/2024/03/07/20 24 [id number] [facility]ulatory [facility] 02/15/2024/02/15/20 24 [id number] Sammie Camacho [facility] 02/09/2024/02/09/20 24 [id number] Sammie Camacho [facility] 02/05/2024/02/05/20 24 [id number] Ambulatory [facility] HospitalBuil ding:HEMBHT [facility] PAYERS ENCOUNTER GUARANTOR PAYER SUBSCRIBER SOURCE 01/06/2025 Primary Insurance:ANTHEM MEDICARE crobo OPolicy Number: [id number] Date:6731-92-87Nomm Name:Caryl GEENOAH Johnson KOREYB: [id number] [place] [address] [facility] 01/06/2025 Secondary Insurance:[place] MEDICAIDPolic Number: [id number] Date:7943-35-80Bmwm Name:Bri KOURTNEY Alex WINTERSB: [id number] [place] [address] [facility] 12/28/2024 Primary Insurance:[facility] MEDICARE ADVANTAGE VA hospitaly Number: [id number] Date:5603-54-74Dufz Name:N KOURTNEY WINTERSB: [id number] [place] [address] [facility] 12/28/2024 Secondary Insurance:[place] MEDICAIDPolicy Number: [id number] Date:9332-99-87Fdmb Name:X KOURTNEY WINTERSB: [id number] [place] [address] [facility] 12/27/[address] [place] [address]Yle: () Primary Insurance:Zachary MediBlue Dual AdvPolicy Number: [id number] Date:5233-50-65TO [address] [place] [address]JX: Kourtney WintersB: [id number] [place] [address]Hhf: (HP) [facility] 12/27/2024 Secondary Insurance:MedicaidPoli cy Number: [id number] Date:2024-12-27 Kourtney WintersB: [id number] [place] [address]Gtc: () [facility] 12/27/2024 Tertiary Insurance:Self PayPolicy Number: Effective Date:2024-12-27 NOT GIVENUNK [facility] 12/13/[address] [place] [address]Arz: (HP) Primary Insurance:Zachary MediBlue Dual AdvPolicy Number: [id number] Date:4730-27-31HY [address] [place] [address]ZB: Kourtney WintersB: [id number] [place] [address]Tsw: () [facility] 12/13/2024 Secondary Insurance:MedicaidPoli cy Number: [id number] Date:2024-12-12 Kourtney WintersB: [id number] [place] [address]Lyd: () [facility] 12/13/2024 Tertiary Insurance:Self PayPolicy Number: Effective Date:2024-12-[address] [facility] 11/03/2024 [place] [address]Jew: () Primary Insurance:Zachary MediBlue Dual AdvPolicy Number: [id number] Date:2270-09-78[address]PKJCBWR, [place] [address]RN: Kourtney WintersB: [id number] [place] [address]Yqr: () [facility] 11/03/2024 Secondary Insurance:MedicaidPoli cy Number: [id number] Date:2024-11-03 Kourtney WintersB: [id number] [place] [address]Hij: () [facility] 11/03/2024 Tertiary Insurance:Self PayPolicy Number: Effective Date:2024-11-[address] [facility] 09/20/2024 [place] [address]Ixu: () Primary Insurance:[place]achary MediBlue Dual AdvPolicy Number: [id number] Date:6251-61-35[address]ECITPLN, [place] [address]AK: Kourtney WintersB: [id number] [place] [address]Zad: () [facility] 09/20/2024 Secondary Insurance:MedicaidPoli cy Number: [id number] Date:2024-09-15 Kourtney WintersB: [id number] [place] [address]Oxm: (HP) [facility] 09/20/2024 Tertiary Insurance:Self PayPolicy Number: Effective Date:2024-09-[address] [facility] 09/16/[address] [place] [address]Wdl: () Primary Insurance:Zachary MediNicue Dual AdvPolicy Number: [id number] Date:6346-93-14HE [address] [address]PQ: Kourtney WintersB: [id number] [place] [address]Sbs: () [facility] 09/16/2024 Secondary Insurance:MedicaidPoli cy Number: [id number] Date:2024-08-05 Kourtney WintersB: [id number] [place] [address]Zjc: () [facility] 09/16/2024 Tertiary Insurance:Self PayPolicy Number: Effective Date:2024-08-[address] [facility] 08/01/2024 Kourtney WintersB: [place] [address] Primary Insurance:AnthemPolicy Number: Effective Date:9672-23-67Nznp Name:COMP [address], [place] [address]LT: Kourtney MultanibergDOB: [id number] [place] [address] [facility] 08/01/2024 Secondary Insurance:MedicaidPoli cy Number: Effective Date:3192-55-80Cknp Name:[facility] [address] [address]MZ: Kourtney MultanibergDOB: [id number] [place] [address] [facility] 07/18/2024 Kourtney MultanibergDOB: [place] [address] Primary Insurance:AnthemPolicy Number: Effective Date:5706-65-50Xnpi Name:[facility] [id number], [place] [address]FC: Kourtney MultanibergDOB: 1272-29-56LFW[address] [place] [address] [facility] 07/18/2024 Secondary Insurance:MedicaidPoli cy Number: Effective Date:1547-67-51Whyj Name:[facility] [address] [address]AE: Kourtney MultanibergDOB: [id number] [place] [address] [facility] 07/13/2024 KOURTNEY MULTANIBERGDOB: W [facility] [place] [address]Gdp: () Primary Insurance:ANTHEM MEDICARE ADVANTAGEPolicy Number: [id number] Date:2024-03-14 KOURTNEY NOVAKDOB: [id number] ORELLANAHAVASU REGIONAL [place] [address] [facility] 07/13/2024 Secondary Insurance:MEDICAID [place] Number: [id number] Date:2024-02-13 KOURTNEY WINTERSB: [id number] [facility] [place] [address] [facility] 07/04/2024 Kourtney WintersB: [place] [address] Primary Insurance:AnthemPolicy Number: Effective Date:0324-97-99Hfxy Name:COMP [address], [place] [address]CJ: Kourtney NovakB: [id number] [place] [address] [facility] 07/04/2024 Secondary Insurance:MedicaidPoli cy Number: Effective Date:3294-24-91Odqp Name:MED [address] [address]YD: Kourtney NovakB: [id number] [place] [address] [facility] 06/22/2024 Kourtney Novak[address] [place] [address]Kcz: () Primary Insurance:Zachary MediBlue Dual AdvPolicy Number: [id number] Date:6505-41-47EM [address]LFGDNBJ, [place] [address]CU: Kourtney NovakB: [id number] [place] [address]Cqn: () [facility] 06/22/2024 Secondary Insurance:MedicaidPoli cy Number: [id number] Date:2024-06-20 Kourtney WintersB: [id number] [place] [address]Ccq: () [facility] 06/22/2024 Tertiary Insurance:Self PayPolicy Number: Effective Date:2024-06-20 NOT GIVENUNK [facility] 06/20/2024 Kourtney NovakB: [place] [address] Primary Insurance:AnthemPolicy Number: Effective Date:3516-31-42Umop Name:COMP Richie eYe [address] [address]BH: Kourtney NovakB: [id number] [place] [address] [facility] 06/20/2024 Secondary Insurance:MedicaidPoli cy Number: Effective Date:1154-08-36Urvy Name:[facility] [address], [place] [address]CX: Kourtney NovakB: [id number] [place] [address] [facility] 05/30/2024 Primary Insurance:[place] MEDICARE ADVANTAGE HMOPolicy Number: [id number] Date:1350-67-18Amqs Name:N KOURTNEY LEONCATHERINESORAIDAB: [id number] [place] [address] [facility] 05/30/2024 Secondary Insurance:[place] MEDICAIDPolicy Number: [id number] Date:6701-74-65Tjgn Name:X KOURTNEY Johnson TINGSORAIDAB: [id number] [place] [address] [facility] 05/12/2024 Kourtney Multaniberg[address] [place] [address]Mlc: () Primary Insurance:[facility] HospitalNic Dual AdvPolicy Number: [id number] Date:4552-56-59IW [address]EHSVXBTFLORAL PARK, [place] [address]RX: Kourtney Johnson TingsoraidaB: [id number] [place] [address]Fnn: () [facility] 05/12/2024 Secondary Insurance:MedicaidPoli cy Number: [id number] Date:2024-04-14 Kourtney WintersB: [id number] [place] [address]Jrr: () [facility] 05/12/2024 Tertiary Insurance:FapPolicy Number: [id number] Date:2024-04-14 - 9584-83-1292% 60-82-18Gicfvlui, [place] [address]AY: [phone] Kourtney NovakB: [id number] [place] [address]Ovq: () [facility] 05/12/2024 Tertiary Insurance:Self PayPolicy Number: Effective Date:2024-05-[address] [facility] 05/09/2024 Kourtney NovakB: [place] [address] Primary Insurance:AnthemPolicy Number: Effective Date:1080-50-69Lheu Name:SOSA Yee 533406[place] [address]MN: Kourtney NovakB: [id number] [place] [address] [facility] 05/09/2024 Secondary Insurance:MedicaidPoli cy Number: Effective Date:9339-24-18Lmcn Name:MEDCP O [address] [address]JP: Kourtney NovakB: [id number] [place] [address] [facility] 04/25/2024 Kourtney NovakB: [place] [address] Primary Insurance:AnthemPolicy Number: Effective Date:6864-91-79Ehqe Name:COMP [address], [place] [address]GC: Kourtney MultanibergDOB: [id number] [facility] [place] [address] [facility] 04/25/2024 Secondary Insurance:MedicaidPoli cy Number: Effective Date:0184-58-76Cvsx Name:MED [address] [address]BC: Kourtney MultanibergDOB: [id number] [facility] [place] [address] [facility] 03/07/2024 Kourtney LeoncatherinebergDOB: W [facility] [place] [place] [address] Primary Insurance:MedicarePoli cy Number: Effective Date:3329-92-06Qeyu Name:MED [address] [address]EH: Kourtney MultanibergDOB: [id number] [place] [address] [facility] 03/07/2024 Secondary Insurance:MedicaidPoli cy Number: Effective Date:8779-90-99Jxjr Name:[facility] [address] [address]MY: Kourtney MultanibergDOB: [id number] [facility] [place] [address] [facility] 02/15/2024 Kourtney Multaniberg[address] [place] [address]Weq: (HP) Primary Insurance:MedicarePoli cy Number: [id number] Date:2024-02-10 Kourtney MultanibergDOB: [id number] [place] [address]Rfv: (HP) [facility] 02/15/2024 Secondary Insurance:MedicaidPoli cy Number: [id number] Date:2024-02-10 Kourtney Johnson Chely: [id number] [address] [place] [address]Sxd: (HP) [facility] 02/15/2024 Tertiary Insurance:FapPolicy Number: [id number] Date:2024-02-10 - 6223-29-2859% 81-67-12Dntfaoon, [place] [address]BR: [id number] Kourtney Johnson Chely: [id number] [place] [address]Jdk: () [facility] 02/15/2024 Tertiary Insurance:Self PayPolicy Number: Effective Date:2024-02-[address] [facility] 02/09/[address] [facility] [place] [address]Ssc: () Primary Insurance:MedicarePoli cy Number: [id number] Date:2024-01-15 Kourtney L Chely: [id number] [facility] [place] [address]Lqt: () [facility] 02/09/2024 Secondary Insurance:Self PayPolicy Number: Effective Date:2024-01-[address] [facility] 02/05/2024 Primary Insurance:MEDICARE A AND BPolicy Number: [id number] Date:8190-03-23Qnyd Name:Peggy KOURTNEY Johnson CHELY: [id number] [facility] [place] [place] [address] [facility]
--- OUTSIDE RECORDS SUMMARY | 2025-02-02 13:37 | XMS_ITS | Patient Health Record ---
Author Organization [facility] [place] Address [address] [place] [address] Care Team Providers Care Surgical Consultant Name Role Phone Eric Camacho Primary Care Provider SAMMIE CAMACHO Unavailable [phone] Allergies No Known Allergies Results Component Value Reference Range Notes Mammogram Reviewed date:09/16/2024 02:53:56 PM Interpretation:undefined Performing Lab: Notes/Report: undefined COVID-19, Flu A+B IH (Not ye t reviewed by provider) Interpretation: Performing Lab: Notes/Report: COVID POSITIVE FLU A neg FLU B neg Control present UA DIP NONAUTO WO MICRO (810 02) - IN OFFICE Reviewed date:06/22/2024 01:05:59 PM Interpretation: Performing Lab: Notes/Report: COLOR Light Yellow CLARITY Clear GLUCOSE +++ BILIRUBIN Neg KETONE + SPECIFIC GRAVITY 1.005 BLOOD Neg PH 6.0 PROTEIN NEg UROBILINOGEN Neg NITRITE Neg LEUKOCYTE ESTERASE Neg UA DIP NONAUTO WO MICRO (810 02) - IN OFFICE Reviewed date:07/18/2024 07:33:11 PM Interpretation: Performing Lab: Notes/Report: COLOR light yellow CLARITY clear GLUCOSE n BILIRUBIN n KETONE 5 SPECIFIC GRAVITY 1.005 BLOOD 50 PH 5 PROTEIN n UROBILINOGEN n NITRITE n LEUKOCYTE ESTERASE 15 HCG Qualitative* Reviewed date:07/18/2024 07:33:11 PM Interpretation: Performing Lab: Notes/Report: [facility] , HCG Qualitative NEGATIVE NEGATIVE Performing Lab: see note ML - The [facility] LB XR cervical spine w flex/ext Reviewed date:02/22/2024 02:02:37 PM Interpretation: Performing Lab: Notes/Report: Source Facility: [place] [address] The [place] [id number] XRay Report Signed Patient: KOURTNEY PICHARDO MR#: [id number] : 1975 Acct:[id number] Age/Sex: 48 / F ADM Date: 02/19/24 Loc: EC Attending Dr: Diego Byrne M.D. Ordering Physician: Diego Byrne M.D. Date of Service: 02/19/24 Procedure(s): XR cervical spine w flex/ext Accession Number(s): [id number] cc: Sammie Camacho M.D.; Diego Byrne M.D. The [place] [address] Patient Name: KOURTNEY PICHARDO MRN: [id number] date: 1975 Sex: F Assigned Patient Location: Current Patient Location: Accession/Order Number: [id number] Exam Date: 02/19/2024 11:30 Report Date: 02/22/2024 06:06 At the request of: DIEGO BYRNE Procedure: XR cervical spine w flex/ext EXAMINATION: XR cervical spine w flex/ext HISTORY: CERVICAL SPINE PAIN COMPARISON: MRI cervical spine 02/01/2024 FINDINGS: BONES: Slight reversal of normal lordotic curvature. No fracture or spondylolisthesis. No significant facet arthropathy. DISC SPACES: Moderate narrowing C5-C6, and suspected at C6-C7 which is partially obscured by shoulder structures. PARASPINOUS: Negative. No paraspinous abnormality is seen. OTHER: Negative. XR/XR cervical spine w flex/ext IMPRESSION: 1. Moderate degenerative disc disease of lower cervical spine. 2. Reversal of normal lordotic curvature; positioning versus muscle spasm. Electronically authenticated by: ED BATRES Date: 02/22/2024 06:06 Dictated By: Ed Batres M.D. Signed By: 02/22/24607 DD/ 5 TD/TT: Eeler: The [address] [address] XRay Report Signed Patient: KOURTNEY PICHARDO MR#: [id number] : 1975 Acct:[id number] Age/Sex: 48 / F ADM Date: 02/19/24 Loc: EC Attending Dr: Diego Byrne M.D. Ordering Physician: Diego Byrne M.D. Date of Service: 02/19/24 Procedure(s): XR cer vical spine w flex/ext Accession Number(s): [id number] cc: Sammie Camacho M.D. ; Diego Byrne M.D. The [address] [address] Patient Name: KOURTNEY PICHARDO MRN: [id number] date: 1975 Sex: F Assigned Patient Location: Current Patient Location: Accession/Order Numb er: [id number] Exam Date: 02/19/2024 11:30 Report Date: 02/22/2024 06:06 At the request of: DIEGO BYRNE Procedure: XR cervic al spine w flex/ext EXAMINATION: XR cerv ical spine w flex/ext HISTORY: CERVICAL SP INE PAIN COMPARISON: MRI cerv ical spine 02/01/2024 FINDINGS: BONES: Slight revers al of normal lordotic curvature. No fracture or spondylolisthesis. N o significant facet arthropathy. DISC SPACES: Moderat e narrowing C5-C6, and suspected at C6-C7 which is partially obscured b y shoulder structures. PARASPINOUS: Negativ e. No paraspinous abnormality is seen. OTHER: Negative. X R/XR cervical spine w flex/ext IMPRESSION: 1. Moderate degenera tive disc disease of lower cervical spine. 2. Reversal of solitario l lordotic curvature; positioning versus muscle spasm. Electronically authenticated by: ED BATRES Date: 02/22/2024 06:06 Dictated By: Ed Batres M.D. Signed By: 02/22/24607 DD/ 5 TD/TT: Eeler: XR lumbar spine min 4V Reviewed date:02/22/2024 02:02:37 PM Interpretation: Performing Lab: Notes/Report: Source Facility: [place] [address] [place] [address] XRay Report Signed Patient: KOURTNEY PICHARDO MR#: [id number] : 1975 Acct:[id number] Age/Sex: 48 / F ADM Date: 02/19/24 Loc: EC Attending Dr: Diego Byrne M.D. Ordering Physician: Diego Byrne M.D. Date of Service: 02/19/24 Procedure(s): XR lumbar spine min 4V Accession Number(s): [id number] cc: Sammie Camacho M.D.; Diego Byrne M.D. [place] [address] Patient Name: KOURTNEY PICHARDO MRN: [id number] date: 1975 Sex: F Assigned Patient Location: Current Patient Location: Accession/Order Number: [id number] Exam Date: 02/19/2024 11:30 Report Date: 02/22/2024 06:07 At the request of: DIEGO BYRNE Procedure: XR lumbar spine min 4V EXAMINATION: XR lumbar spine min 4V HISTORY: LUMBAR PAIN COMPARISON: MRI lumbar spine 02/01/2024 FINDINGS: BONES: Slight right convex curvature lumbar spine. No fracture, spondylolisthesis, bone lesion. No change in alignment during flexion and extension. Suspect mild degenerative facet arthropathy L3-L4 through L5-S1. DISC SPACES: Moderate narrowing L5-S1. PARASPINOUS: Negative. No paraspinous abnormality is seen. OTHER: Negative. XR/XR lumbar spine min 4V IMPRESSION: 1. L5-S1 moderate degenerative disc disease. Electronically authenticated by: ED BATRES Date: 02/22/2024 06:07 Dictated By: Ed Batres M.D. Signed By: 02/22/24609 DD/ 6 TD/TT: Eeler: The [address] [address] XRay Report Signed Patient: KOURTNEY PICHARDO MR#: [id number] : 1975 Acct:[id number] Age/Sex: 48 / F ADM Date: 02/19/24 Loc: EC Attending Dr: Diego Byrne M.D. Ordering Physician: Diego Byrne M.D. Date of Service: 02/19/24 Procedure(s): XR lum bar spine min 4V Accession Number(s): [id number] cc: Sammie Camacho M.D. ; Diego Byrne M.D. [place] [address] Patient Name: KOURTNEY PICHARDO MRN: [id number] date: 1975 Sex: F Assigned Patient Location: Current Patient Loca tion: EC Accession/Order Numb er: [id number] Exam Date: 02/19/2024 11:30 Report Date: 02/22/2024 06:07 At the request of: DIEGO BYRNE Procedure: XR lumbar spine min 4V EXAMINATION: XR lumb ar spine min 4V HISTORY: LUMBAR PAIN COMPARISON: MRI lumb ar spine 02/01/2024 FINDINGS: BONES: Slight right convex curvature lumbar spine. No fracture, spondylolisthesis, b one lesion. No change in alignment during flexion and extension. Suspect m ild degenerative facet arthropathy L3-L4 through L5-S1. DISC SPACES: Moderat e narrowing L5-S1. PARASPINOUS: Negativ e. No paraspinous abnormality is seen. OTHER: Negative. X R/XR lumbar spine min 4V IMPRESSION: 1. L5-S1 moderate degenerative disc disease. Electronically authenticated by: ED BATRES Date: 02/22/2024 06:07 Dictated By: Ed Batres M.D. Signed By: 02/22/24609 DD/ 6 TD/TT: Eeler: Reason For Referral Diagnosis 1 Other cervical disc degeneration, unspecified cervical region (M50.30) Diagnosis 2 Other intervertebral disc degeneration, lumbar region (M51.36) Referral Organization [facility] carmen Bunch Referring Provider First Name SAMMIE Referring Provider Last Name JANICE Referring Provider Speciality [facility] edward Referred Provider Specialty Neurosurgery Referral Priority Routine Medications Medication SIG (Take, Route, Frequency, Duration) Notes Start Date End Date Status Chlorzoxazone 500 MG 1 tablet as needed Orally bid for 30 days 05/09/2024 Active Cetirizine HCl 10 MG 1 tablet Orally Onc e a day for 30 days 05/04/2024 Active Pioglitazone HCl 15 MG 1 tablet Orally O nce a day for 90 days 01/18/2023 Active Dexlansoprazole 60 MG TAKE 1 CAPSULE BY MOUTH TWICE A DAY Orally BID for 90 days Active Simvastatin 20 MG 1 tablet in the evening Orally Once a day for 90 days 01/18/2023 Active Plaquenil 200 MG as directed Orally bid Active DULoxetine HCl 60 MG TAKE 1 CAPSULE BY MOUTH EVERY DAY Oral for 30 Days Active Doxepin HCl 10 MG 1 capsule Orally TID for 30 days Active Fioricet 50-300-40 MG 1 capsule as neede d Orally every 4 hrs 03/10/2024 Active Farxiga 5 MG 1 tablet Orally Once a day for 90 days 01/18/2023 Active Glycopyrrolate 1 MG 1 tablet Orally Once a day Active Ipratropium-Albuterol 0.5-2.5 (3) MG/3ML USE 1 VIAL INHALATION EVERY 6 HOURS NEEDED for 30 Active Ibuprofen 800 MG 1 tablet with food o r milk as needed Orally every 8 hrs for 25 days Active lamoTRIgine 200 MG TAKE 3 TABLETS BY MOUTH ONCE DAILY for 90 Active Lactulose 20 GM/30ML 30 ml Orally Once a day - up to bid for 30 days Active Lancets 33G - Use 1 lancet to chec k glucose once daily for 90 days 03/06/2023 Active Levothyroxine Sodium 50 MCG TAKE 1 TABLE T BY MOUTH EVERY DAY IN THE MORNING ON EMPTY STOMACH FOR 30 DAYS for 90 days Active Blood Glucose Monitor System w/Device Use Device to check glucose every day for 90 days 03/06/2023 Active Lubiprostone 24 MCG TAKE 1 CAPSULE BY MOUTH TWICE A DAY for 90 Active Albuterol Sulfate (2.5 MG/3ML) 0.083% 3 mL as needed Inhalation every 6 hrs Active Lodine 400 MG 1 tablet with food Orally Twice a day Active Blood Glucose Test - Use 1 strip In Vitr o daily for 90 days 03/06/2023 Active Myrbetriq 50 MG 1 tablet Orally Once a day for 30 days 06/22/2024 Active metFORMIN HCl 500 mg TAKE 2 TABLETS BY MOUTH TWICE DAILY for 30 Active Carafate 1 GM 1 tablet on an empty stomach Orally Twice a day Active Ondansetron HCl 4 MG TAKE 1 TABLET BY [facility] EVERY 6 HOURS NEEDED FOR NAUSEA/VOMITING 30 DAYS for 30 Active Budesonide 1 MG/2ML 1 mL Inhalation Once a day DX J44.9 for 90 days Active Nebulizer Mask and Tubing-Adult - use daily with neb solution for 365 days DX j44.9 DX:j44.9 05/20/2024 Active Immunizations Vaccine Route Administration Date Status Comme nts Flu, Flucelvax (0225-2438) (20515) 6 mos +, single-dose syringe IM Intramuscular 06/29/2023 Administered Social History Tobacco Use: Social History Observation Description Date Details (start date - stop date) Former Smoker 09/14/1993 - 09/14/2009 Tobacco Use/Smoking Question Answer Notes Patient is a former smoker When did you start smoking? 09/14/1993 When did you stop smoking? 09/14/2009 Alcohol Screen (Audit-C) Question Answer Notes Did you have a drink containing alcohol in the p ast year? No Points 0 Interpretation Negative AUDIT-C (Standard) Question Answer Notes Did you have a drink containing alcohol in the p ast year? 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) Active confirmed Problem Brachial plexus disorder (2599625) Brachial plexus disorders (G54.0) Active confirmed Problem 319467970 Other cervical disc degeneration, unspecified cervical region (M50.30) Active confirmed Problem 183168951 Other intervertebral disc degeneration, lumbar region (M51.36) Active confirmed Problem Fibromyalgia (072690374) Fibromyalgia (M79.7) Active confirmed Problem Right upper quadrant pain (175276377) Right upper quadrant pain (R10.11) Active confirmed Problem 755127835 Nausea (R11.0) Active confirmed Problem 132054012 Vomiting, unspecified (R11.10) Active confirmed Problem Fatigue (74089299) Fatigue (R53.83) Active conf irmed Problem Hypertension (67145010) Hypertension (I10) Active confirmed Problem COPD - Chronic obstructive pulmonary disease (91088550) COPD (chronic obstructive pulmonary disease) (J44.9) Active confirmed Problem Gastroesophageal reflux disease (181571125) GERD (gastroesophageal reflux disease) (K21.9) Active confirmed Problem Obstructive sleep apnea syndrome (83126479) MAREK (obstructive sleep apnea) (G47.33) Active confirmed Problem Eczema (88348511) Eczema (L30.9) Active confirm ed Problem Epigastric pain (87859495) Epigastric abdominal pain (R10.13) Active confirmed Problem Disorder of lumbar disc (960039673) Lumbar disc disease (M51.9) Active confirmed Problem Constipation (85318016) Constipation (K59.00) Active confirmed Problem Well adult (820839916) Well adult (Z00.00) Active confirmed Problem Solitary nodule of lung (206003843) Lung nodule (R91.1) Active confirmed Problem Paresthesia (44503279) Paresthesia (R20.2) Active confirmed Problem Fibromyalgia (039456488) Fibromyalgia (M79.7) Active confirmed Problem Tension headache (629890217) Tension headache (G44.209) Active confirmed Problem Bursitis of left shoulder (065992317042119) Bursitis of shoulder, left (M75.52) Active confirmed Problem Excessive sweating (08921989) Excessive sweating (R61) Active confirmed Problem Chronic obstructive pulmonary disease (39437679) Advanced COPD (J44.9) Active confirmed Problem Mixed anxiety and depressive disorder (098336342) Anxiety and depression (F41.9) Active confirmed Problem Ankle edema (83029937) Ankle edema (M25.473) Active confirmed Problem Abnormal PFTs (R94.2) Active confirmed Problem Irritable bowel syndrome (29461415) Irritable bowel syndrome (IBS) (K58.9) Active confirmed Problem Type II diabetes mellitus without complication (819871361) Controlled type 2 diabetes mellitus (E11.9) Active confirmed Problem Obese class III (finding) (587706743) Obesity, class 3 (E66.813) Active confirmed Vital Signs Temperature 98.5 degrees Fahrenheit 09/05/2024 Oximetry 99 % 09/05/2024 Blood pressure diastolic 62 mm Hg 02/02/2025 Height 65.5 in 02/02/2025 Blood pressure systolic 104 mm Hg 02/02/2025 Weight 242.2 lbs 02/02/2025 BMI 39.69 kg/m2 02/02/2025 Encounters Encounter Location Date Provider Diagnosis [address] [address] 06/22/2024 Eric Hoy Dysuria R30.0 ; [employer] [facility] obstructive pulmonary disease, unspecified J44.9 and Lumbar disc disease M51.[address] [address] 08/10/2024 Eric Hoy COPD (chronic obstructive pulmonary disease) J44.[address] [address] 09/05/2024 Eric Hoy Acute bronchitis, unspecified organism J20.[address] [address] 05/04/2024 Eric Hoy Acute bronchitis, unspecified organism J20.[address] [address] 05/18/2024 Eric Hoy Hypertension I10 and Encounter for medication review Z79.8[address] [address] 05/26/2024 Eric Hoy Urinary urgency R39. [address] [address] 02/02/2025 Eric Hoy Benign neoplasm of meninges, unspecified D32.9 ; Obesity, class 3 E66.813 ; Chronic obstructive pulmonary disease, unspecified J44.9 ; Advanced COPD J44.9 and COPD (chronic obstructive pulmonary disease) J44.9 [facility] [address] [place] [address] 04/14/2024 Eric Camacho Well adult Z00.00 [facility] [address] [place] [address] 02/09/2024 SAMMIE HOY Other cervical disc degeneration, unspecified cervical region M50.30 ; Other intervertebral disc degeneration, lumbar region M51.36 and Nontoxic single thyroid nodule E04.1 [facility] [address] [place] [address] 02/22/2024 SAMMIE HOY [facility] [address] [place] [address] 03/10/2024 SAMMIE JANICE [facility] [address] [place] [address] 03/22/2024 SAMMIE CAMACHO [facility] [address] [place] [address] 03/24/2024 Eric Camacho [facility] [address] [place] [address] 05/04/2024 Eric Camacho [facility] [address] [place] [address] 05/06/2024 Eric Camacho [facility] [address] [place] [address] 05/09/2024 Eric Camacho [facility] [address] [place] [address] 05/16/2024 Eric Camacho Hypothyroidism, unspecified E03.9 [facility] [address] [place] [address] 05/20/2024 Eric uLisy [facility] [address] [place] [address] 06/23/2024 Eric Camacho Hypertension I10 [facility] [address] [place] [address] 07/19/2024 Eric Camacho [facility] [address] [place] [facility] [place] [address] 08/18/2024 Eric Camacho [facility] [address] [place] [facility] [place] [address] 09/01/2024 Eric Camacho [facility] [address] [place] [facility] [place] [address] 09/05/2024 Eric Camacho [facility] [address] [place] [facility] [place] [address] 09/19/2024 Eric Camacho [facility] [address] [place] [facility] [address] 11/14/2024 Eric Camacho [facility] [address] [facility] [place] [address] 12/12/2024 Eric Camacho Iron deficiency anem ia, unspecified D50.9 [facility] [address] [place] [facility] [place] [address] 12/14/2024 Eric Janice Assessments Encounter Date Diagnosis (ICD Code) Assessment Notes Treatment Notes Treatment Clinical Notes Section Notes 04/14/2024 Well adult (ICD-10 - Z00.00) 05/18/2024 Hypertension (ICD-10 - I10) needs to loose 10 lb or woulnd cont 05/18/2024 Encounter for medication review (ICD-10 - Z79.899) 05/04/2024 Acute bronchitis, unspecified organism (ICD-10 - J20.9) Rest and drink more liquids, especially water. You may use a humidifier or vaporizer to help keep the drainage moist. Gnqq-yxp-jtiydyt Nasal Saline may help the stuffy and runny nose. Use Ibuprofen and or Tylenol as needed for fever, chills, body aches or pain. Children 5 years old should not be given kxil-vaq-wkmrfor cough and cold medications such as guaifenesin and dextromethorphan. If you're over age 5, you may try utxi-zmm-encwqnl cold medications such as guaifenesin and dextromethorphan, or multi-symptom cold reliever such as Dayquil to help reduce the symptoms. Antibiotics have been prescribed. You should take these until completed and follow the directions. Antibiotics can sometimes cause upset stomach, and in rare cases, serious allergic reactions or serious gastrointestinal problems. If you start having severe abdominal pain, severe vomiting, or bloody diarrhea, you should be reevaluated by your physician or urgent care immediately. Follow up with your Primary Care Provider or return to clinic if symptoms do not improve within 3-5 days. If you develop severe symptoms such as shortness of breath, repeated vomiting, coughing up blood, or chest pain you should go to the emergency room or call 911 05/26/2024 Urinary urgency (ICD-10 - R39.15) 06/22/2024 Dysuria (ICD-10 - R30.0) 06/22/2024 Chronic obstructive pulmonary disease, unspecified (ICD-10 - J44.9) 02/09/2024 Other cervical disc degeneration, unspecified cervical region (ICD-10 - M50.30) 02/09/2024 Other intervertebral disc degeneration, lumbar region (ICD-10 - M51.36) 08/10/2024 COPD (chronic obstructive pulmonary disease) (ICD-10 - J44.9) 09/05/2024 Acute bronchitis, unspecified organism (ICD-10 - J20.9) Rest and drink more liquids, especially water. You may use a humidifier or vaporizer to help keep the drainage moist. Otbk-gpj-bhagexj Nasal Saline may help the stuffy and runny nose. Use Ibuprofen and or Tylenol as needed for fever, chills, body aches or pain. Children 5 years old should not be given fdck-fzj-gbcmtit cough and cold medications such as guaifenesin and dextromethorphan. If you're over age 5, you may try rucb-krm-oywegva cold medications such as guaifenesin and dextromethorphan, or multi-symptom cold reliever such as Dayquil to help reduce the symptoms. Antibiotics have been prescribed. You should take these until completed and follow the directions. Antibiotics can sometimes cause upset stomach, and in rare cases, serious allergic reactions or serious gastrointestinal problems. If you start having severe abdominal pain, severe vomiting, or bloody diarrhea, you should be reevaluated by your physician or urgent care immediately. Follow up with your Primary Care Provider or return to clinic if symptoms do not improve within 3-5 days. If you develop severe symptoms such as shortness of breath, repeated vomiting, coughing up blood, or chest pain you should go to the emergency room or call 911 02/02/2025 Benign neoplasm of meninges, unspecified (ICD-10 - D32.9) 02/02/2025 Obesity, class 3 (ICD-10 - E66.813) 05/16/2024 Hypothyroidism, unspecified (ICD-10 - E03.9) 06/23/2024 Hypertension (ICD-10 - I10) 12/12/2024 Iron deficiency anemia, unspecified (ICD-10 - D50.9) 02/02/2025 Chronic obstructive pulmonary disease, unspecified (ICD-10 - J44.9) 02/09/2024 Nontoxic single thyroid nodule (ICD-10 - E04.1) 06/22/2024 Lumbar disc disease (ICD-10 - M51.9) comnpleted [employer] for houseing 02/02/2025 Advanced COPD (ICD-10 - J44.9) 02/02/2025 COPD (chronic obstructive pulmonary disease) (ICD-10 - J44.9) Plan Of Treatment Pending Test Test Name Order Date GLUCOSE - IN OFFICE 02/12/2023 CMP (COMPLETE METABOLIC PANEL) 4 CMP (COMPLETE METABOLIC PANEL) 3 HEMOGLOBIN A1C (GLYCO) 04/14/2024 HEMOGLOBIN A1C (GLYCO) 05/15/2023 IRON, TOTAL 02/02/2025 IRON, TOTAL 04/14/2024 LIPID PANEL (CHOL/TRIG/HDL/LDL) 05/15/20 23 LIPID PANEL (CHOL/TRIG/HDL/LDL) 04/14/20 24 CBC WITH DIFF 04/14/2024 CBC WITH DIFF 05/15/2023 VITAMIN D, 25 LEVEL (TOTAL) 04/14/2024 VITAMIN D, 25 LEVEL (TOTAL) 02/02/2025 MRI Brain w/wo contrast * 04/10/2023 NUC MED Hida with Ejection Fraction * Insulin Level 04/14/2024 CBC W/AUTO DIFF 11/09/2023 COVID-19, Flu A+B IH 09/05/2024 STOOL OCCULT BLOOD 05/15/2023 CBC AUTO DIFF 04/10/2023 CBC AUTO DIFF 12/12/2024 FERRITIN 12/12/2024 FERRITIN 04/10/2023 FERRITIN 05/20/2023 FERRITIN 11/09/2023 IRON 11/09/2023 IRON 05/20/2023 IRON 04/10/2023 IRON 12/12/2024 VIT B12 AND FOLATE 04/14/2024 MRI CSPINE WO CON 01/15/2024 MRI LSPINE WO CON 01/15/2024 US ABD 02/16/2023 US THYROID 02/09/2024 THYROID PANEL (T4/TSH/FREE T3) 4 THYROID PANEL (T4/TSH/FREE T3) 3 THYROID PANEL (T4/TSH/FREE T3) 4 THYROID PANEL (T4/TSH/FREE T3) 5 CMP (COMP MET PICKETT) w/eGFR CKD-EPI 2024 CBC WITH DIFF 02/02/2025 Insurance Providers Payer Name Payer Address Payer Phone Subscriber Number Group Number Insured Name Patient Relationship to Insured Coverage Start Date Coverage End Date [employer] PRIMARY MEDICARE [address] [place] [address] [id number] Kourtney Eli Self - patient is the insured [place] 2ND INS [address] [place], [place] [id number] Kourtney Eli Self - patient is the insured [place] [address] [address] [place] [address] [id number] Kourtney Eli Self - patient is the insured 0 Medications Administered Medication Instructions Date of Administration Dosage Notes Dexamethasone, 4mg/mL 08/10/2024 8 mg Kenalog-40 05/04/2024 80 mg 80 Ketorolac Tromethamine 01/15/2024 60 mg 60 Orphenadrine Citrate 01/15/2024 60 mg 60 Promethazine, 25 mg 02/16/2023 25 mg 25 Medical (General) History Medical History History ICD Code Tension headache G44.209 Abnormal PFTs R94.2 Ankle edema M25.473 Fibromyalgia M79.7 Epigastric abdominal pain R10.13 MAREK (obstructive sleep apnea) G47.33 Lung nodule R91.1 rectal bleeding Excessive sweating R61 Vertigo R42 Controlled type 2 diabetes mellitus E11. 9 Lumbar disc disease M51.9 Acid reflux K21.9 Brachial plexus disorders G54.0 Chronic obstructive pulmonary disease, u nspecified J44.9 Hypertension I10 Irritable bowel syndrome (IBS) K58.9 Eczema L30.9 Paresthesia R20.2 Anxiety and depression F41.9 Surgical History Surgery Date(Month/Year) Carpal Tunnel x2 on right, x1 left Left C4-5, 5-6 radiofrequency ablation 1 09/17/2023 Repair of bones in left arm d/t fracture Right rib removal Rt Radius core Decompression with Dr. Afsaneh dunbar Cubital Tunnel, right 2020 Appendectomy
--- OUTSIDE RECORDS SUMMARY | 2025-02-02 13:38 | XMS_ITS | Patient Health Record ---
Author Organization [facility] Address [address] [place] [address] Care Team Providers Care Sampling Expert Name Role Phone Jesus Camacho Primary Care Provider UnavailEtienne Stevenson Unavailable [phone] Haylie Seymour Unavailable [phone] Reason For Referral Reason REFERRAL TO [facility] FOR NAKIA Diagnosis 1 Neck pain (M54.2) Referral Organization [facility] Referring Provider First Name Etienne Referring Provider Last Name [facility] Referring Provider Speciality Orthopedic Surgery Referred Organization Pain clinic General Notes Marielos Giron 2023 12:50:46 PM >, Marielos Giron 03/02/2024 08:51:27 AM >FAXED TO [facility] Referral Priority Routine Problems Problem Type SNOMED Code ICD Code Onset Dates Problem Status W/U Status Risk Notes Problem 36067506 Radiculopathy, cervical region (M54.12) Active confirmed Problem 62135645 Spinal stenosis, cervical region (M48.02) Active confirmed Problem 514293550 Spinal stenosis, lumbosacral region (M48.07) Active confirmed Problem 21405783 Other intervertebral disc displacement, 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 Office [address] [place] [address] [address] [place] [address] 02/19/2024 Haylie Seymour Other intervertebral disc displacement, [...] with patient. We will refer her to [facility] for NAKIA of C7/T1 and [...] C5-7 stenosis/HN P/radiculop athy Plan Of Treatment Pending Test Test Name Order Date Lumbar spine, 4v flex ext - 94107 2023 Cervical spine,ap,lat,flex,ext - 62490 0 02/19/2024 [facility] - Lumbar Spine PT Order, Isometrics & Strenghening w/Modalities as needed, 2-3 times per week for 6 weeks 02/19/2024 [facility] - Cervical Spine PT Orde r, Isometrics & Strenghening w/Modalities as needed. 2-3 x Week for 4-6 Weeks 02/19/2024 Epidural injection - lumbar 02/19/2024 Insurance Providers Payer Name Payer Address Payer Phone Subscriber Number Group Number Insured Name Patient Relationship to Insured Coverage Start Date Coverage End [place] [address] [place] [address] [id number] DEON BUSTAMANTE Self - [facility] the [facility] [address] [place] [address] [id number] DEON BUSTAMANTE Self - patient is the insured 4
[2025-02-02 14:01] LABS: Basophils Absolute Auto 0.1 10^3/uL (0.0-0.1); Basophils Percent Auto 0.7 % (0.2-2.0); Eosinophils Absolute Auto 0.1 10^3/uL (0.0-0.7); Eosinophils Percent Auto 1.3 % (0.9-7.0); Hematocrit 39.6 % (36.0-48.0); Hemoglobin 12.9 g/dL (12.0-16.0); Immature Granulocytes Abs Auto 0.03 10^3/uL (0.00-0.03); Immature Granulocytes Pct Auto 0.4 % (0.0-0.5); Lymphocytes Absolute Auto 2.7 10^3/uL (1.2-3.8); Lymphocytes Percent Auto 32.2 % (20.5-60.0); Mean Corpuscular HGB Conc 32.6 g/dL (29.9-35.2); Mean Corpuscular Hemoglobin 30.1 pg (26.7-34.0); Mean Corpuscular Volume 92.3 fL (81.0-99.0); Monocytes Absolute Auto 0.8 10^3/uL (0.3-0.8); Monocytes Percent Auto 9.7 % (1.7-12.0); Neutrophils Absolute Auto 4.6 10^3/uL (1.4-6.5); Neutrophils Percent Auto 55.7 % (43.0-75.0); Platelet Count 378 10^3/uL (150-450); Red Blood Count 4.29 10^6/uL (4.20-5.40); White Blood Count 8.3 10^3/uL (4.0-11.0)
[2025-02-02 14:29] LABS: Alanine Aminotransferase 35 U/L (14-59); Albumin Globulin Ratio 1.3; Albumin Level 3.8 g/dL (3.4-5.0); Alkaline Phosphatase 52 U/L (46-116); Anion Gap 16.2; Aspartate Amino Transferase 16 U/L (15-37); BUN Creatinine Ratio 13.2; Bilirubin Total 0.3 mg/dL (0.2-1.0); Calcium 8.9 mg/dL (8.5-10.1); Carbon Dioxide 24.3 mmol/L (21.0-32.0); Chloride 104 mmol/L (98-107); Estimated GFR (African America 50 (>=60 mL/min/1.73m^2); Estimated GFR (Non-African Ame 42 (>=60 mL/min/1.73m^2); Free T3 3.02 pg/mL (2.18-3.98); Glucose 101 mg/dL (74-106); Potassium 4.5 mmol/L (3.5-5.1); Sodium 140 mmol/L (136-145); Thyroid Stimulating Hormone 2.619 uIU/mL (0.358-3.740); Total Protein 6.8 g/dL (6.4-8.2)
== END 2025-02-02 13:31 | disposition home or self-care (01) ==
LOC: LAB 13:35
PROVIDERS: PCP Family Medicine; Visit Provider Family Medicine
DX: D32.9 Benign neoplasm of meninges, unspecified (principal); E66.813 Obesity, class 3; J44.9 Chronic obstructive pulmonary disease, unspecified; D64.9 Anemia, unspecified; E55.9 Vitamin D deficiency, unspecified
CPT/HCPCS: 36415; 80053; 82306; 83540; 84436; 84443; 84481; 85025

== ENCOUNTER 2025-02-08 13:06 | Outpatient (OUT) | payer MEDICARE, MEDICAID, SELFPAY ==
[2025-02-08 13:43] LABS: Anion Gap 13.4; Calcium 9.2 mg/dL (8.5-10.1); Carbon Dioxide 27.9 mmol/L (21.0-32.0); Chloride 103 mmol/L (98-107); Estimated GFR (African America >60 (>=60 mL/min/1.73m^2); Estimated GFR (Non-African Ame >60 (>=60 mL/min/1.73m^2); Glucose 91 mg/dL (74-106); Potassium 4.3 mmol/L (3.5-5.1); Sodium 140 mmol/L (136-145)
== END 2025-02-08 13:07 | disposition home or self-care (01) ==
LOC: LAB 13:10
PROVIDERS: PCP Family Medicine; Visit Provider Family Medicine
DX: N28.9 Disorder of kidney and ureter, unspecified (principal)
CPT/HCPCS: 36415; 80048

== ENCOUNTER 2025-03-29 13:04 | Outpatient (OUT) | payer MEDICARE, MEDICAID, SELFPAY ==
--- NOTE | 2025-03-29 13:19 | PM.CN ---
Consult Note: HPI Data of Consult Patient: known to practice within the last 3 years Consult date: 03/29/25 Requesting Physician: Chantal Ocampo NP Primary Care Provider: Jesus Camacho MD Consult Narrative Reason for consult: chronic neck pain Narrative: 49 year old female with chronic severe neck pain secondary to cervical stenosis, DDD, and cervical spondylosis unresponsive to > 6 weeks of PT/HEP, heat, ice, tylenol, NSAIDs. pt reports prior cervical RFAs provided significant relief for at least 6 months and she is interested in repeating. pain today 4/10 increasing to 10/10 in neck and bilateral shoulders. pain increased with standing, walking, pushing, pulling, housework, ADLs, and activity. Notes improvement with sleep and lying down. currently utilizing lodine, robaxin, duloxetine, nortriptyline with benefit without side effects. cc:: CC: Chantal Ocampo NP Review of Systems ROS Musculoskeletal Reports: neck pain PFSH PFSH Medical History Kienb�ck's disease �M92.219 - 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], unspecified hand (ICD-10) History of smoking �Z87.891 - Personal history of nicotine dependence (ICD-10) Carpal tunnel syndrome �G56.00 - Carpal tunnel syndrome, unspecified upper limb (ICD-10) Obesity �E66.9 - Obesity, unspecified (ICD-10) Anemia �D64.9 - Anemia, unspecified (ICD-10) Anxiety �F41.9 - Anxiety disorder, unspecified (ICD-10) Acid reflux �K21.9 - Gastro-esophageal reflux disease without esophagitis (ICD-10) Diabetes 1.5, managed as type 2 �E13.9 - Other specified diabetes mellitus without complications (ICD-10) Hypertension �I10 - Essential (primary) hypertension (ICD-10) High cholesterol �E78.00 - Pure hypercholesterolemia, unspecified (ICD-10) Surgical History H/O resection of rib �Z98.890 - Other specified postprocedural states (ICD-10) History of surgery on arm �Z98.890 - Other specified postprocedural states (ICD-10) H/O breast biopsy �Z98.890 - Other specified postprocedural states (ICD-10) History of carpal tunnel surgery �Z98.890 - Other specified postprocedural states (ICD-10) History of appendectomy �Z90.49 - Acquired absence of other specified parts of digestive tract (ICD-10) Meds Home Medications and Allergies Home Medications �Medication �Instructions �Recorded �Confirmed �Type brexpiprazole 2 mg tablet (Rexulti) 2 mg PO DAILY 02/17/23 08/01/24 History dapagliflozin propanediol 5 mg 5 mg PO DAILY 02/17/23 08/01/24 History tablet (Farxiga) duloxetine 30 mg capsule,delayed 30 mg PO DAILY 02/17/23 08/01/24 History release glycopyrrolate 1 mg tablet 1 mg PO Q8H PRN secretions 02/17/23 08/01/24 History hydroxychloroquine 200 mg tablet 200 mg PO BID 02/17/23 08/01/24 History ipratropium 0.5 mg-albuterol 3 mg 3 ml inhalation Q6H PRN shortness 02/17/23 08/01/24 History (2.5 mg base)/3 mL nebulization of breath soln lamotrigine 200 mg tablet 200 mg PO Q8H 02/17/23 08/01/24 History lisinopril 10 mg tablet 10 mg PO DAILY 02/17/23 08/01/24 History lubiprostone 24 mcg capsule 24 mcg PO BID 02/17/23 08/01/24 History metformin 500 mg tablet 1,000 mg PO BID 02/17/23 08/01/24 History ondansetron HCl 4 mg tablet 4 mg PO Q8H PRN nausea and vomiting 02/17/23 08/01/24 History pioglitazone 15 mg tablet 15 mg PO DAILY 02/17/23 08/01/24 History simvastatin 20 mg tablet 20 mg PO DAILY 02/17/23 08/01/24 History vilazodone 40 mg tablet (Viibryd) 40 mg PO DAILY 02/17/23 08/01/24 History budesonide 1 mg/2 mL suspension 1 mg inhalation DAILY 03/08/24 08/01/24 History for nebulization (Pulmicort) dexlansoprazole 60 mg 60 mg PO DAILY 03/08/24 08/01/24 History capsule,biphase delayed release (Dexilant) etodolac 400 mg tablet (Lodine) 400 mg PO Q12H PRN pain 03/08/24 08/01/24 History nortriptyline 25 mg capsule 25 mg PO DAILY 03/08/24 08/01/24 History methocarbamol 500 mg tablet mg 07/04/24 History mirabegron 25 mg tablet,extended mg PO 07/04/24 History release 24 hr (Myrbetriq) Allergies Allergy/AdvReac Type Severity Reaction Status Date / Time No Known Drug Allergies Allergy Verified 08/01/24 07:29 Exam Constitutional Documenting provider has reviewed patient's vital signs: yes Common normals: no apparent distress, oriented x3, healthy appearing, alert and well nourished General appearance: cooperative HENMT Common normals: normocephalic, hearing grossly normal bilaterally and moist oral mucous membranes Head and scalp: normocephalic Eye Common normals: PERRL Pupil: PERRL Neck & C-Spine Common normals: full ROM General: normal visual inspection Cervical spine: pain with cervical ROM and cervical spine tenderness Other: positive spurlings decreased strength 4/5 in BUE decreased sensation bilateral C5,6 positive facet loading bialterlaly Chest Common normals: inspection of chest normal Respiratory Common normals: normal respiratory effort, no retractions and no use of accessory muscles Neuro Common normals: oriented x3 Sensorium/orientation: alert Psych Common normals: mental status grossly normal, thought process normal, cooperative, affect normal, speech normal and activity/motor behavior normal Speech: normal speech Thought process: normal thought process Results Additional Findings Additional findings: If on a controlled substance or opioids, I have checked an [place] report on this patient and there are no aberrancies noted in the prescribing history.��If on a controlled substance or opioid a drug screen was completed and reviewed within the last year, and if there has not been a drug screen completed we ordered one today to monitor higher risk, state monitored pain medication use. As part of providing excellent, safe, comprehensive care, the following was completed at our patient's visit: 1. A medication reconciliation and review to ensure accurate knowledge of current/active medications, including asking our patients to inform us about any [id number] medications or herbal remedies/nutritional supplements/alternative remedies. 2. A review to specifically ensure our patients have had annual screening for screening for depression, screening for tobacco use, and screening for unhealthy alcohol use. For concerning screenings had a discussion with the patient, provided patient education, and recommended follow-up with primary care provider when appropriate. If patient noted with a risk of falling, they received education on strength, gait, and balance training to prevent future risk of falling. Portions of this note may have been carried over from the previous visit and updated as appropriate. Please note this office utilizes paper charting in addition to the electronic medical record. A list of current medications, vitals, and PMH is available there as the clinical staff outside of myself do not have access to [employer] charting during the clinic day operations. As part of providing quality comprehensive care the current medications, vitals, and PMH were reviewed in the paper chart. Assessment and Plan Assessment and Plan (1) Cervical stenosis of spinal canal: Assessment and Plan: The patient has had over 3 months of moderate to severe neck pain with functional impairment and inadequate response to conservative care including NSAIDS (unless there are contraindication such as concurrent blood thinners), multiple oral or topical pain medications, and home exercise program/physical therapy.� Patient has completed >6 weeks of guided home exercise program and/or formal physical therapy program without relief of their symptoms.� The Oswestry Disability Index was completed, and the patient scored a 24%.� The patient noted the following:�� moderate to severe pain impacting ADLs, sitting, standing, sleeping, social life, travel We discussed the risks and benefits of the procedure with the patient, and we are NOT planning on using sedation as outlined in the guidelines from Medicare unless there is a documented reason that sedation would be strongly recommended.��The procedure will be completed with fluoroscopic guidance.� (2) Cervical spondylosis: Plan proceed with bilateral C5-6 TFESI under fluoroscopy for cervical stenosis consider repeat cervical RFAs for facet mediated pain in the future, unfortunately we are restricted by insurance guidelines and cannot perform more than 2 cervical RFAs in 12 months continue current medications f/u 2 weeks after injection
== END 2025-03-29 13:05 | disposition home or self-care (01) ==
LOC: PM 13:05
PROVIDERS: PCP Family Medicine; Visit Provider Nurse Practitioner
DX: M48.02 Spinal stenosis, cervical region (principal)
CPT/HCPCS: G0463

== ENCOUNTER 2025-04-24 08:26 | Day surgery (SDC) | payer MEDICARE, MEDICAID, SELFPAY ==
--- OUTSIDE RECORDS SUMMARY | 2024-02-19 07:10 | XMS_ITS ---
Author Organization [facility] Address [address] [place] [address] Care Team Providers Care Adjunct Philosophy Faculty Name Role Phone Jesus Camacho Primary Care Provider UnavailEtienne Stevenson Unavailable [phone] Haylie Lee Unavailable Reason For Referral Reason REFERRAL TO [place] FOR [facility]AKIA Diagnosis 1 Neck pain (M54.2) Referral Organization [facility] Referring Provider First Name Etienne Referring Provider Last Name [facility] Referring Provider Speciality Orthopedic Surgery Referred Organization Pain clinic General Notes Marielos Giron 2023 12:50:46 PM >, Marielos Giron 03/02/2024 08:51:27 AM >FAXED TO [facility] Referral Priority Routine REASON FOR VISIT Neck/low Back Pain Problems Problem Type SNOMED Code ICD Code Onset Dates Problem Status W/U Status Risk Notes Problem 15770562 Other intervertebral disc displacement, 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) Active confirmed Problem 40436337 Other intervertebral disc degeneration, lumbosacral region (M51.37) Active confirmed Problem 017896742 Spinal stenosis, lumbosacral region (M48.07) Active confirmed Problem 78297264 Spinal stenosis, cervical region (M48.02) Active confirmed Problem 723567381 Other cervical d 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 L5-S1 HNP/DDD/NFS /stenosis 2. C5-7 stenosis/HN P/radiculop athy 02/19/2024 Other intervertebral disc degeneration, lumbosacral region (ICD-10 - M51.37) 1. L5-S1 HNP/DDD/NFS /stenosis 2. C5-7 stenosis/HN P/radiculop athy 02/19/2024 Spinal stenosis, lumbosacral region (ICD-10 - M48.07) 1. L5-S1 HNP/DDD/NFS /stenosis 2. C5-7 stenosis/HN P/radiculop athy 02/19/2024 Spinal stenosis, cervical region (ICD-10 - M48.02) 1. L5-S1 HNP/DDD/NFS /stenosis 2. C5-7 stenosis/HN P/radiculop athy 02/19/2024 Other cervical disc displacement at C5-C6 level (ICD-10 - M50.222) 1. L5-S1 HNP/DDD/NFS /stenosis 2. C5-7 stenosis/HN P/radiculop athy 02/19/2024 Other cervical disc displacement at C6-C7 level (ICD-10 - M50.223) 1. L5-S1 HNP/DDD/NFS /stenosis 2. C5-7 stenosis/HN P/radiculop athy 02/19/2024 Radiculopathy, cervical region (ICD-10 - M54.12) 1. L5-S1 HNP/DDD/NFS /stenosis 2. C5-7 stenosis/HN P/radiculop athy 02/19/2024 Other Patient evaluated and plan established by Dr. Byrne. Dr. Byrne reviewed patient's cervical and lumbar MRIs with patient. We will refer her to [place] [facility] for NAKIA of C7/T1 and [...] contact Dr. Byrne. Best regards, 1. L5-S1 HNP/DDD/NFS /stenosis 2. C5-7 stenosis/HN P/radiculop athy Plan Of Treatment Treatment Notes Assessment Notes Other Patient evaluated and plan established by Dr. Byrne. Dr. Byrne reviewed patient's cervical and lumbar MRIs with patient. We will refer her to [place] for NAKIA of C7/T1 and [...] Date Lumbar spine, 4v flex ext - 38135 2023 Cervical spine,ap,lat,flex,ext - 19473 0 02/19/2024 SFS - Lumbar Spine PT Order, Isometrics & Strenghening w/Modalities as needed, 2-3 times per week for 6 weeks 02/19/2024 SFS - Cervical Spine PT Orde r, Isometrics & Strenghening w/Modalities as needed. 2-3 x Week for 4-6 Weeks 02/19/2024 Epidural injection - lumbar 02/19/2024 Referrals Referral Date Details 02/19/2024 02/19/2024, REFERRAL TO [place] FOR [facility] Next Appt Details Follow Up: prn, Reason: Progress Notes * DEON PICHARDO LDOB:[birth year] (49 yo F)Acc No.[id number]:02/19/2024 Patient: DEON ROBERSON Provider: VIVEK Mckenzie :1975 A ge:48 Y S ex:Female Date:02/19/2024 Address:[address] [place], [place] [address], [facility] Pcp:Jesus Camacho Subjective: * Chief Complaints: * 1 . Neck/low Back Pain. * HPI: G eneral Follow Up Information: Dictated by Haylie Seymour PA-C Thank you for referring your patient to see Dr. Byrne in surgical spine consultation at the [facility]. 48-year-old female presents with 20+ years of neck and low back pain. She states that at this point her neck has been more bothersome for her. [...] and chiropractor visits that have offered relief. G eneral Info per Patient Report: Side affected is B ilateral . J oint or body part affected is N elissa, upper back, lower back, leg. D ate of Injury: 2 008. S tart of Pain/Cause of Injury m any years. P ain occurred n ot sure - except middle/upper back I pressed down a lid on a box (up higher). W ork related: n o. M otor vehicle accident: n o. T hird republican responsibility: n o. W hat activities make your symptoms worse? s tanding, walking, bending forward, lying on your stomach, rising from sitting, changing positions.?Quality of pain is N elissa, upper, middle, lower back almost at all times . W hich of the following treatments have you tried? A nti-Inflammatory medications, Narcotic pain medication, hot packs, TENS unit/Muscle stim, Back,Neck exercises, daycare manager . W hat activities help the pain? s itting. * ROS: M usculoskeletal: Admits B ack Pain. A dmits N elissa Pain. ? * Medical History: * Family History: N o Family History documented.. * Medications: N one Objective: * Vitals: P ain Scale (NRS): 6. * Examination: G eneral examination: O n examination, the patient is well-developed, well-nourished, well-groomed, alert and oriented x3, normal mood. Limited cervical ROM. Midline cervical tenderness to palpation. 5/5 muscle strength bilateral upper extremities. Sensation intact bilateral upper extremities. Negative Geovany sign bilaterally. Positive Spurling sign on the right, negative on the left. 2+ deep tendon reflexes bilateral upper extremities. Limited lumbar ROM. Midline tender over the lumbar spine. 5/5 muscle strength bilateral lower extremities. Sensory intact lower extremities. Negative clonus and SLR bilaterally. 2+ deep tendon reflexes bilateral lower extremities. X -ray Imaging Studies: 4 view x-rays of the lumbar spine were taken in office today and reviewed interpreted by myself as L5-S1 degenerative disc disease. 2 view x-rays of the cervical spine flex/ext were taken in the office today and reviewed interpreted by myself as lower cervical degenerative disc disease. . M RI Imaging Studies: M RI cervical spine without contrast was reviewed from [facility] from 02/09/2024; Impression:C5-6 broad-based disc bulge with facet hypertrophy and uncovertebral joint spurring right greater than left. There is severe right and moderate left neuroforaminal narrowing with moderate spinal canal stenosis. C6-C7 there is circumferential disc bulge with facet and operative joint degenerative change. There is moderate to severe bilateral neuroforaminal narrowing with moderate spinal canal narrowing. MRI lumbar spine without contrast was reviewed from [facility] from 02/09/2024; Impression:At L5-S1 there is a circumferential disc bulge with facet hypertrophy. There is mild spinal canal stenosis with mild to moderate right and moderate to severe left neural foraminal narrowing. This is slightly worse when compared to the prior exam. No significant spinal canal or neural foraminal narrowing is noted, otherwise. . Assessment: * Assessment: 1. O ther intervertebral disc displacement, lumbosacral region - M51.27 (Primary) ?2. O ther intervertebral disc degeneration, lumbosacral region - M51.37 3 .?Spinal stenosis, lumbosacral region - M48.07 4 . S alina stenosis, cervical region - M48.02 5 . O ther cervical disc displacement at C5-C6 level - M50.222? 6. O ther cervical disc displacement at C6-C7 level - M50.223 7 . R adiculopathy, cervical region - M54.12 1. L5-S1 HNP/DDD/NFS/stenosi s 2. C5-7 stenosis/HNP/radiculopathy. Plan: * Treatment: * Follow Up: p rn Forms: * Images: * Electronic signature of Nikita Lee PA-C on 04/24/2025 at 08:33 AM EDT Sign off status: Pending * Provider: VIVEK Mckenzie Date: 0 02/19/2024 Generated for Dax ken/Leisa/Isael on: 0 04/24/2025 08:33 AM EDT History and Physical Notes * HPI (History of Present Illness) Category Sub-Category Detail Notes Category Not es General Follow Up Information Dictated by Haylie Seymour PA-C Thank you for referring your patient to see Dr. Byrne in surgical spine consultation at the [facility] [place]. 48-year-old female presents with 20+ years of neck and low back pain. She states that at this point her neck has been more bothersome for her. [...] have offered relief. General Info per Patient Report Side affected is Bilateral Joint or body part affected is Neck, upp er back, lower back, leg Pain occurred not sure - except mi ddle/upper back I pressed down a lid on a box (up higher) Work related: no Motor vehicle accident: no Quality of pain is Neck, upper, middle, lower back almost at all times Date of Injury: 2007 Start of Pain/Cause of Injury many years Third republican responsibility: no What activities make your symptoms worse ? standing, walking, bending forward, lying on your stomach, rising from sitting, changing positions Which of the following treat ments have you tried? Anti-Inflammatory medications, Narcotic pain medication, hot packs, TENS unit/Muscle stim, Back,Neck exercises, daycare manager What activities help the pain? sitting Examination Category Sub-Category Detail Notes Category Not es General examination On examination, the patient is well-developed, well-nourished, well-groomed, alert and oriented x3, normal mood. Limited cervical ROM. Midline cervical tenderness to palpation. 5/5 muscle strength bilateral upper extremities. Sensation intact bilateral upper extremities. Negative Geovany sign bilaterally. Positive Spurling sign on the right, negative on the left. 2+ deep tendon reflexes bilateral upper extremities. Limited lumbar ROM. Midline tender over the [...] cervical spine without contrast was reviewed from [facility] from 02/09/2024; Impression:C5-6 broad-based disc bulge with facet hypertrophy and uncovertebral joint spurring right greater than left. There is severe right and moderate left neuroforaminal narrowing with moderate spinal canal stenosis. C6-C7 there is circumferential disc bulge with facet and operative joint degenerative change. There is moderate to severe bilateral neuroforaminal narrowing with moderate spinal canal narrowing. MRI lumbar spine without contrast was reviewed from [facility] from 02/09/2024; Impression:At L5-S1 there is [...] es 02/19/2024 Etienne Scott , REFERRAL TO [facility] FOR [facility]
--- OUTSIDE RECORDS SUMMARY | 2025-03-20 11:30 | XMS_ITS ---
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 Name Role Phone Eric Camacho Primary Care Provider [phone] Allergies No Known Allergies REASON FOR VISIT copd flare up, SOB started thursday Medications Medication SIG (Take, Route, Frequency, Duration) Notes Start Date End Date Status lamoTRIgine 200 MG TAKE 3 TABLETS BY MOUTH ONCE DAILY for 90 Active Lancets 33G - Use 1 lancet to chec k glucose once daily for 90 days 03/06/2023 Active Ipratropium-Albuterol 0.5-2.5 (3) MG/3ML USE 1 VIAL INHALATION EVERY 6 HOURS NEEDED for 30 Active Lactulose 20 GM/30ML 30 ml Orally Once a day - up to bid for 30 days Active Ibuprofen 800 MG 1 tablet with food o r milk as needed Orally every 8 hrs for 25 days Active DULoxetine HCl 60 MG TAKE 1 CAPSULE BY MOUTH EVERY DAY Oral for 30 Days Active Farxiga 5 MG TAKE 1 TABLET BY ADRIAN TH EVERY DAY for 90 Active Doxepin HCl 10 MG 1 capsule Orally TID for 30 days Active Fioricet 50-300-40 MG 1 capsule as neede d Orally every 4 hrs 03/10/2024 Active Glycopyrrolate 1 MG 1 tablet Orally Once a day Active Dexlansoprazole 60 MG TAKE 1 CAPSULE BY MOUTH TWICE A DAY Orally BID for 90 days Active Cetirizine HCl 10 MG 1 tablet Orally Onc e a day for 30 days 05/04/2024 Active Chlorzoxazone 500 MG 1 tablet as needed Orally bid for 30 days 05/09/2024 Active Carafate 1 GM 1 tablet on an empty stomach Orally Twice a day Active Budesonide 1 MG/2ML 1 mL Inhalation Once a day DX J44.9 for 90 days Active predniSONE 20 MG 3 tablets Orally Onc e a day for 5 days 03/20/2025 Active levoFLOXacin 750 MG 1 tablet Orally Once a day for 10 day(s) 03/20/2025 Active Blood Glucose Test - Use 1 strip In Vitr o daily for 90 days 03/06/2023 Active Albuterol Sulfate (2.5 MG/3ML) 0.083% 3 mL as needed Inhalation every 6 hrs for 30 days Active Blood Glucose Monitor System w/Device Use Device to check glucose every day for 90 days 03/06/2023 Active Simvastatin 20 MG 1 tablet in the evening Orally Once a day for 30 days Active Pioglitazone HCl 15 MG 1 tablet Orally O nce a day for 30 days Active Plaquenil 200 MG as directed Orally bid Active Ondansetron HCl 4 MG TAKE 1 TABLET BY [facility] EVERY 6 HOURS NEEDED FOR NAUSEA/VOMITING 30 DAYS for 30 Active Nebulizer Mask and Tubing-Adult - use daily with neb solution for 365 days DX j44.9 DX:j44.9 05/20/2024 Active Lubiprostone 24 MCG TAKE 1 CAPSULE BY MOUTH TWICE A DAY for 90 Active metFORMIN HCl 500 mg TAKE 2 TABLETS BY MOUTH TWICE DAILY for 30 Active Levothyroxine Sodium 50 MCG TAKE 1 TABLE T BY MOUTH EVERY DAY IN THE MORNING ON EMPTY STOMACH FOR 30 DAYS for 30 days Active Lodine 400 MG 1 tablet with food Orally Twice a day Active Myrbetriq 50 MG 1 tablet Orally Once a day for 30 days 06/22/2024 Active Social History Tobacco Use: Social History Observation Description Date Details (start date - stop date) Former Smoker 09/14/1993 - 09/14/2009 Tobacco Use/Smoking Question Answer Notes Patient is a former smoker When did you start smoking? 09/14/1993 When did you stop smoking? 09/14/2009 AUDIT-C (Standard) Question Answer Notes Did you have a drink containing alcohol in the p ast year? No Points 0 Interpretation Negative Vital Signs Blood pressure systolic 118 mm Hg 03/20/20 25 Blood pressure diastolic 70 mm Hg 025 Heart Rate 83 /min 03/20/2025 Height 65.5 in 03/20/2025 Weight 247.8 lbs 03/20/2025 BMI 40.6 kg/m2 03/20/2025 Oximetry 98 % 03/20/2025 Encounters Encounter Location Date Provider Diagnosis [facility] [address] [place] [address] 03/20/2025 Eric Camacho Chronic obstructive pulmonary disease, unspecified J44.9 Assessments Encounter Date Diagnosis (ICD Code) Assessment Notes Treatment Notes Treatment Clinical Notes Section Notes 03/20/2025 Chronic obstructive pulmonary disease, unspecified (ICD-10 - J44.9) Plan Of Treatment Medication Medication Name Sig Start Date Stop Date Notes predniSONE 20 MG 3 tablets Orally Once a day for 5 days levoFLOXacin 750 MG 1 tablet Orally Once a day for 10 day(s) 03/20/2025 Medications Administered Medication Instructions Date of Administration Dosage Notes Dexamethasone, 4mg/mL 03/20/2025 8 mg Progress Notes * Kourtney PICHARDO LDOB:[birth year] (49 yo F)Acc No.[id number]:03/20/2025 Progress Note Patient: Kourtney ROBERSON Provider: Macrina Camacho ([facility])MD :1975 A ge:49 Y S ex:Female Date:03/20/2025 Address:[address] [place], [place] [id number] Check In:03:38 PM ESTCheck O ut:04:41 PM EST Subjective: * Chief Complaints: * c opd flare up, SOB started thursday * HPI: G eneral: 3 days flar e of her COPD - worse yeseterday same today - diaphoresis - buthat is resolved today. C OPD: The patient complains of i ncreased shortness of breath and phlegm production. Symptoms have been w orsening. The symptoms have been present for 1 -2 days. The symptoms are m ild. Symptomatic treatment has included O TC chest decongestant.? Associated Symptoms W heezing, Cough, Fatigue, Chest tightness. * ROS: G eneral/Constitutional: Chills d enies. F ever d enies. W eight Change?denies. S kin: Rash d enies. C ardiovascular: Chest pain d enies. C hest pain at rest d enies.?Palpitations d enies. R espiratory: Comments S ee HPI for details. * Active Problem List J44.9 Chronic obstructive pulmonary disease, unspecified Modified On:05/15/2023 Status:confirmed G54.0 Brachial plexus diso rders Modified On:05/15/2023 Status:confirmed I10 Hypertension Modified On:05/15/2023 Status:confirmed G47.33 MAREK (obstructive sle ep apnea) Modified On:05/15/2023 Status:confirmed L30.9 Eczema Modified On:02/12/2023 Status:confirmed R10.13 Epigastric abdominal pain Modified On:02/12/2023 Status:confirmed M51.9 Lumbar disc disease Modified On:02/12/2023 Status:confirmed R91.1 Lung nodule Modified On:02/12/2023 Status:confirmed R20.2 Paresthesia Modified On:02/12/2023 Status:confirmed M79.7 Fibromyalgia Modified On:05/15/2023 Status:confirmed G44.209 Tension headache Modified On:02/12/2023 Status:confirmed R61 Excessive sweating Modified On:02/12/2023 Status:confirmed F41.9 Anxiety and depressi on Modified On:02/12/2023 Status:confirmed M25.473 Ankle edema Modified On:02/12/2023 Status:confirmed R94.2 Abnormal PFTs Modified On:02/12/2023 Status:confirmed K58.9 Irritable bowel synd mary (IBS) Modified On:02/12/2023 Status:confirmed E11.9 Controlled type 2 di abetes mellitus Modified On:05/15/2023 Status:confirmed M79.7 Fibromyalgia Modified On:12/05/2022 Status:confirmed J44.9 Advanced COPD Modified On:12/05/2022 Status:confirmed R10.11 Right upper quadrant pain Modified On:03/11/2023U Status:confirmed R11.10 Vomiting, unspecifie d Modified On:02/23/2023 Status:confirmed R11.0 Nausea Modified On:02/23/2023 Status:confirmed K59.00 Constipation Modified On:04/10/2023 Status:confirmed R53.83 Fatigue Modified On:04/10/2023 Status:confirmed 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, unspecified Modified On:05/08/2023 Status:confirmed D50.9 Iron deficiency anem ia, unspecified Modified On:11/09/2023 Status:confirmed M50.30 Other cervical disc degeneration, unspecified cervical region Modified On:02/10/2024 Status:confirmed M51.36 Other intervertebral disc degeneration, lumbar region Modified On:02/10/2024 Status:confirmed E04.1 Nontoxic single thyr oid nodule Modified On:02/10/2024 Status:confirmed Z00.00 Well adult Modified On:04/14/2024 Status:confirmed E03.9 Hypothyroidism, unsp ecified Modified On:05/17/2024 Status:confirmed K21.9 GERD (gastroesophage al reflux disease) Modified On:07/20/2024 Status:confirmed J44.9 COPD (chronic obstru ctive pulmonary disease) Modified On:08/10/2024 Status:confirmed M75.52 Bursitis of shoulder , left Modified On:11/08/2024 Status:confirmed E66.813 Obesity, class 3 Modified On:02/02/2025 Status:confirmed * Medical History: * Surgical History: A ppendectomy Cubital Tunnel, right 2020Carpal Tunnel x2 on right, x1 left Rt Radius core Decompression with Dr. Gomes Right rib removal Repair of bones in left arm d/t fracture Left C4-5, 5-6 radiofrequency ablation 4craniotomy 02/20/25 * Hospitalization/Major Diagno stic Procedure: N o Hospitalization History. * Family History: F ather: , seizures, passed at 49 from liver failure, diagnosed with Diabetes mellitus without mention of complication, type II or unspecified type, not stated as uncontrolled, Unspecified heart disease. M other: alive, high cholesterol, diagnosed with Unspecified essential hypertension. B rother(s): alive, deafness, Seizure, high cholesterol. 1 brother(s) . 2 son(s) . .? * Social History: T obacco Use: T obacco Use/Smoking P atient is a f ormer smoker W hen did you start smoking? 0 09/14/1993 W hen did you stop smoking? 0 09/14/2009 D rug/Alcohol: A LOKESH-C (Standard) D id you have a drink containing alcohol in the past year? N o P oints 0 I nterpretation N egative * Medications: T akingAlbuterol Sulfate (2.5 MG/3ML) 0.083% Nebulization Solution 3 mL as needed Inhalation every 6 hrs Blood Glucose Monitor System w/Device Kit Use Device to check glucose every day Blood Glucose Test - Strip Use 1 strip In Vitro daily Budesonide 1 MG/2ML Suspension 1 mL Inhalation Once a day DX J44.9 Carafate(Sucralfate) 1 GM Tablet 1 tablet on an empty stomach Orally Twice a day Cetirizine HCl 10 MG Tablet 1 tablet Orally Once a day Chlorzoxazone 500 MG Tablet 1 tablet as needed Orally bid Dexlansoprazole 60 MG Capsule Delayed Release TAKE 1 CAPSULE BY MOUTH TWICE A DAY Orally BID Doxepin HCl 10 MG Capsule 1 capsule Orally TID DULoxetine HCl 60 MG Capsule Delayed Release Particles TAKE 1 CAPSULE BY MOUTH EVERY DAY Oral Farxiga(Dapagliflozin Propanediol) 5 MG Tablet TAKE 1 TABLET BY MOUTH EVERY DAY Fioricet(Seoajwmxzy-ZFXD-Sjixqxpc) 50-300-40 MG Capsule 1 capsule as needed Orally every 4 hrs Glycopyrrolate 1 MG Tablet 1 tablet Orally Once a day Ibuprofen 800 MG Tablet 1 tablet with food or milk as needed Orally every 8 hrs Ipratropium- Albuterol 0.5-2.5 (3) MG/3ML Solution USE 1 VIAL INHALATION EVERY 6 HOURS NEEDED Lactulose 20 GM/30ML Solution 30 ml Orally Once a day - up to bid lamoTRIgine 200 MG Tablet TAKE 3 TABLETS BY MOUTH ONCE DAILY Lancets 33G(Lancets) - Miscellaneous Use 1 lancet to check glucose once daily Levothyroxine Sodium 50 MCG Tablet TAKE 1 TABLET BY MOUTH EVERY DAY IN THE MORNING ON EMPTY STOMACH FOR 30 DAYS Lodine(Etodolac) 400 MG Tablet 1 tablet with food Orally Twice a day Lubiprostone 24 MCG Capsule TAKE 1 CAPSULE BY MOUTH TWICE A DAY metFORMIN HCl 500 mg Tablet TAKE 2 TABLETS BY MOUTH TWICE DAILY Myrbetriq(Mirabegron ER) 50 MG Tablet Extended Release 24 Hour 1 tablet Orally Once a day Nebulizer Mask and Tubing-Adult - miscellaneous use daily with neb solution JADEN j44.9, Notes to Pharmacist: DX:alexey44.9Ondansetron HCl 4 MG Tablet TAKE 1 TABLET BY MOUTH EVERY 6 HOURS NEEDED FOR NAUSEA/VOMITING 30 DAYS Pioglitazone HCl 15 MG Tablet 1 tablet Orally Once a day Plaquenil(Hydroxychloroquine Sulfate) 200 MG Tablet as directed Orally bid Simvastatin 20 MG Tablet 1 tablet in the evening Orally Once a day Taking Albuterol Sulfate (2.5 MG/3ML) 0.083% Nebulization Solution 3 mL as needed Inhalation every 6 hrs Taking Blood Glucose Monitor System w/Device Kit Use Device to check glucose every day Taking Blood Glucose Test - Strip Use 1 strip In Vitro daily Taking Budesonide 1 MG/2ML Suspension 1 mL Inhalation Once a day DX J44.9 Taking Carafate(Sucralfate) 1 GM Tablet 1 tablet on an empty stomach Orally Twice a day Taking Cetirizine HCl 10 MG Tablet 1 tablet Orally Once a day Taking Chlorzoxazone 500 MG Tablet 1 tablet as needed Orally bid Taking Dexlansoprazole 60 MG Capsule Delayed Release TAKE 1 CAPSULE BY MOUTH TWICE A DAY Orally BID Taking Doxepin HCl 10 MG Capsule 1 capsule Orally TID Taking DULoxetine HCl 60 MG Capsule Delayed Release Particles TAKE 1 CAPSULE BY MOUTH EVERY DAY Oral Taking Farxiga(Dapagliflozin Propanediol) 5 MG Tablet TAKE 1 TABLET BY MOUTH EVERY DAY Taking Fioricet(Iyakmglyeu-URCJ-Qxlaiofz) 50-300-40 MG Capsule 1 capsule as needed Orally every 4 hrs Taking Glycopyrrolate 1 MG Tablet 1 tablet Orally Once a day Taking Ibuprofen 800 MG Tablet 1 tablet with food or milk as needed Orally every 8 hrs Taking Ipratropium-Albuterol 0.5-2.5 (3) MG/3ML Solution USE 1 VIAL INHALATION EVERY 6 HOURS NEEDED Taking Lactulose 20 GM/30ML Solution 30 ml Orally Once a day - up to bid Taking lamoTRIgine 200 MG Tablet TAKE 3 TABLETS BY MOUTH ONCE DAILY Taking Lancets 33G(Lancets) - Miscellaneous Use 1 lancet to check glucose once daily Taking Levothyroxine Sodium 50 MCG Tablet TAKE 1 TABLET BY MOUTH EVERY DAY IN THE MORNING ON EMPTY STOMACH FOR 30 DAYS Taking Lodine(Etodolac) 400 MG Tablet 1 tablet with food Orally Twice a day Taking Lubiprostone 24 MCG Capsule TAKE 1 CAPSULE BY MOUTH TWICE A DAY Taking metFORMIN HCl 500 mg Tablet TAKE 2 TABLETS BY MOUTH TWICE DAILY Taking Myrbetriq(Mirabegron ER) 50 MG Tablet Extended Release 24 Hour 1 tablet Orally Once a day Taking Nebulizer Mask and Tubing-Adult - miscellaneous use daily with neb solution DX j44.9, Notes to Pharmacist: DX:j44.9Taking Ondansetron HCl 4 MG Tablet TAKE 1 TABLET BY MOUTH EVERY 6 HOURS NEEDED FOR NAUSEA/VOMITING 30 DAYS Taking Pioglitazone HCl 15 MG Tablet 1 tablet Orally Once a day Taking Plaquenil(Hydroxychloroquine Sulfate) 200 MG Tablet as directed Orally bid Taking Simvastatin 20 MG Tablet 1 tablet in the evening Orally Once a day * Allergies: N .K.D.A.no[Allergies Verified] Objective: * Vitals: W t:247.8lbs, Ht: 65.5 in, BP:118/70mm Hg, HR:83/min, BMI:40.6Index, Oxygen sat %:98%, Ht-cm: 166.37 cm, Wt-k.4 kg. * Examination: G eneral Examination: GENERAL APPEARANCE: in no acute distress. EYES: extra ocular movement intact (EOMI) . EARS: auditory canal clear, middle ear effusion noted.? NOSE: clear discharge, turbinates pale and swollen. ORAL CAVITY: mucosa moist. THROAT: no erythema, post-nasal drainage noted. LYMPH NODES: no cervical adenopathy. LUNGS: M ild diffuse rhonchi. CARDIO: no murmurs, regular rate and rhythm. NECK/THYROID: neck supple, no thyromegaly. ? Assessment: * Assessment: 1. C hronic obstructive pulmonary disease, unspecified - J44.9 (Primary) Plan: * Treatment: * Therapeutic Injections: Dexamethasone, 4mg/mL : 8 mg (Route: Intramuscular) given by SKIP Tuttle on right gluteus (Chronic obstructive pulmonary disease, unspecified) * Procedure Codes: [id number] THERAP.INJ. OF MED. INTRAMUSCULAR OR [id number] Dexamethasone, 4mg/mL, Units: 2.00 * Preventive Medicine: Screenings/Counseling: B ID ACTION PLAN Above Normal BMI Follow-up D ietary management education, guidance, and counseling * * Sign off status: Completed Visit Status: C HK (Check Out) true * Provider: Macrina Camacho ([facility])MD Date: 0 03/20/2025 Generated for Printi ng/Abdig/eTransmitting on: 0 04/24/2025 08:32 AM EDT History and Physical Notes * HPI (History of Present Illness) Category Sub-Category Detail Notes Category Not es General 3 days flar e o f her COPD - worse yeseterday same today - diaphoresis - buthat is resolved today COPD Associated Symptoms Wheezing, Cough, Fati samantha, Chest tightness Symptoms have been worsening The patient complains of increased short ness of breath and phlegm production The symptoms have been present for 1-2 d ays The symptoms are mild Symptomatic treatment has included OTC c hest decongestant Examination Category Sub-Category Detail Notes Category Not es General Examination GENERAL APPEARANCE: in no acute di stress EYES: extra ocular movemen t intact (EOMI) EARS: auditory canal clear , middle ear effusion noted NOSE: clear discharge, tur binates pale and swollen THROAT: no erythema, post-na luke drainage noted CARDIO: no murmurs, regular rate and rhythm LUNGS: Mild diffuse rhonchi LYMPH NODES: no cervical adenopat hy ORAL CAVITY: mucosa moist NECK/THYROID: neck supple, no thyr omegaly
--- OUTSIDE RECORDS SUMMARY | 2025-03-21 06:19 | XMS_ITS ---
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
--- OUTSIDE RECORDS SUMMARY | 2025-03-28 12:35 | XMS_ITS ---
Author Organization The [facility] in [place] Address [address] [place] [address] Care Team Providers Care Database Reporting Consultant Name Role Phone Eric Camacho Primary Care Provider REASON FOR VISIT steroids Medications Medication SIG (Take, Route, Fr equency, Duration) Notes Start Date End Date Status predniSONE 10 MG 5 tabs per day for 3 days, 4 tabs per day for 3 ays, 3 tabs perday for 3 days, 2 tabs per day for 3 days, 1 tab a day for 3 days, 1/2 tab a day for 4 days Orally Once a day for 19 days 03/28/2025 Active Encounters Encounter Location Date Provider Diagnosis [facility] [address] [place] [address] 03/28/2025 Eric Camacho Plan Of Treatment Medication Medication Name Sig Start Date Stop Date Notes predniSONE 10 MG 5 tabs per day for 3 days, 4 tabs per day for 3 ays, 3 tabs perday for 3 days, 2 tabs per day for 3 days, 1 tab a day for 3 days, 1/2 tab a day for 4 days Orally Once a day for 19 days 03/28/2025 Progress Notes * Kourtney PICHARDO LDOB:[birth year] (49 yo F)Acc No.[id number]:03/28/2025 Patient: Alpesh Kourtney BEAR :1975 A ge:49 Y S ex:Female Address:[address] [facility] [place] [address] * Refills Start predniSONE Tablet, 10 MG, Orally, 47, 5 tabs per day for 3 days, 4 tabs per day for 3 ays, 3 tabs perday for 3 days, 2 tabs per day for 3 days, 1 tab a day for 3 days, 1/2 tab a day for 4 days, Once a day, 19 days, Refills=0 * true * Date: Generated for Dax ken/Leisa/Jerichoitting on: 0 04/24/2025 08:33 AM EDT
--- OUTSIDE RECORDS SUMMARY | 2025-04-12 07:00 | XMS_ITS | Encounter Summary ---
Author Organization [facility] Address [facility] [place] [id number] Care Team Providers Care Gaming Director Name Role Phone Jesus Camacho MD Unavailable [phone] Jesus Camacho MD Unavailable [phone] Jesus Camacho MD Primary Care Provider [phone] Source Comments In the event this information is protected by the Federal Confidentiality of Alcohol and Drug AbusePatient Records regulations: The Federal rules restrict any use of the information to criminally investigate or prosecute any alcohol or drug abuse patient.[facility] Reason for Referral * Consult, Test, Treat (Routine) - Authorized Specialty Diagnoses / Procedures Referred By Tati gonzalez Referred To Contact Diagnoses Chronic daily headache Procedures OFFICE/OUTPATIENT [facility] 60 MINUTES Rachele Fenton APRN.[facility] [address] [place] [address] Phone: tel: fax: Referral ID Status Reason Start Date Expiration Date Visits Requested Visits Authorized [id number] Authorized PCP Requested Referral 10/13/2025 04/12/2026 1 1 Reason for Visit * Reason Comments Headache Encounter Details Date Type Department Care Team (Latest Contact Info) Description 04/12/2025 7:00 AM EDT [facility] Neurology [address] [place] [address] Rachele Fenton APRN.CNP [address] [place] [address] Meningioma (HCC) (Primary Dx); Chronic daily headache Social History Tobacco Use Types Packs/Day Years Used Date Smoking Tobacco: Former Smokeless Tobacco: Never Comments:Started 1994. Quit 2009. 1 ppd Alcohol Use Standard Drinks/Week Comments Yes 0 (1 standard drink = 0.6 oz pur e alcohol) 3-4 drinks on occasion PHQ-2 Answer Date Recorded PHQ-2 score 1 04/10/2025 Area Deprivation Index Answer Date Eliseo rded National Score (1-100), lower number is lower ri sk 89 06/01/2023 State Score (1-10), lower number is lower risk 8 06/01/2023 Data from: https://www.neighborhoodatlas.medicine.[facility].edu/. Last address used for calculation [address] 06/01/2023 Comments No Sex and Gender Information Value Date Recorded Sex Assigned at Female 02/25/2021 11:09 PM EDT Legal Sex Female 8:01 AM EST Gender Identity Female 02/25/2021 11:09 PM EDT Sexual Orientation Straight 02/25/2021 11 :09 PM EDT documented as of this encounter Progress Notes * Rachele Fenton APRN.CNP - 04/12/2025 7:00 AM EDT [facility] - Follow up Virtual Visit [...] licensure. The patient's identity and physical location wereverified at the time of this visit. Either the patient or their legal traffic workforce representative has been informed of the risks and benefits of -- and alternatives to -- treatment through a remote evaluation andconsents to proceed with the evaluation remotely. Accompanied by: Self Primary Problem List: ACTIVE PROBLEM LIST Intracranial Meningioma (Hcc) Chronic Tension-Type Headache, Intractable Anxiety Copd (Chronic Obstructive Pulmonary Disease) (Hcc) Diabetes Mellitus (Hcc) Mixed Hyperlipidemia Fibromyalgia Haroon (Obstructive Sleep Apnea) Gerd (Gastroesophageal Reflux Disease) Hypothyroidism Class 3 Severe Obesity Due to Excess Calories With Serious Comorbidity and Body Mass Index (Bmi) of40.0 to 44.9 in Adult (Hcc) Inflammatory Arthritis Meningioma (Hcc) Dizziness and Giddiness Chief Complaint: headache Last Office Visit: 01/06/25 Impression and Plan from last visit: 1. Chronic daily headache (R51.9) - Significant improvement in headache frequency following epidural injection in the cervical regionaround August; currently experiencing 2-3 headaches per month. - Patient desires to discontinue nortriptyline 25 mg. - Initiated tapering schedule for nortriptyline: prescribed 10 mg tablets, instructed to take 10 mgnightly for 2 weeks, then 10 mg every other day for 1 week before discontinuing. - Prescription for 10 mg nortriptyline sent to [facility], 2-month supply provided to accommodatetapering schedule. - Continues to take Robaxin without side effects. - Follow-up in 6 months to assess headache control post-nortriptyline discontinuation. Interval Headache History: Kourtney Novak is a 49 year old year old female, with a history of DM, COPD, Meningioma and chronic headaches following up today virtually for headaches. Since the last visit, the patient statesthat her headaches have improved. Headaches: - Improvement noted. - Currently taking Cymbalta and nortriptyline 10 mg at night. - Previously on nortriptyline 25 mg, dosage reduced. - Reports mild headache today, associated with neck pain. - Using Robaxin PRN. - Comfortable maintaining current medication regimen. Brain Surgery: - Underwent brain surgery in February with Dr. Cota. - Reports no complications post-surgery. - Follow-up MRI scheduled for August. Fibromyalgia: - Managed with Cymbalta. Preventative: cymbalta (another provider) Abortive: robaxin PAST MEDICAL HISTORY Diagnosis Date Anxiety COPD (chronic obstructive pulmonary disease) (HCC) Depression Diabetes mellitus (HCC) Fibromyalgia Mixed hyperlipidemia PAST SURGICAL HISTORY Procedure Laterality Date APPENDECTOMY 2020 HAND SURGERY HX Right 2020 REVISE MEDIAN N/CARPAL TUNNEL SURG Bilateral ALLERGIES No Known Allergies Current Medications: methocarbamol (ROBAXIN) 500 mg tablet TAKE 1 TABLET BY MOUTH TWICE A DAY NEEDED nortriptyline (PAMELOR) 10 mg capsule Take 1 capsule by mouth daily at bedtime. DULoxetine (CYMBALTA) 60 mg capsule TAKE 1 CAPSULE BY MOUTH EVERY DAY etodolac (LODINE) 400 mg tablet TAKE 1 TABLET BY MOUTH TWICE A DAY NEEDED predniSONE (DELTASONE) 5 mg tablet TAKE 1 TO 2 TABLETS BY MOUTH EVERY DAY acetaminophen (TYLENOL) 325 mg tablet 2 tablets by ORAL/FEEDING TUBE route every 4 hours as needed for pain. senna-docusate (SENNA-S) 8.6-50 mg per tablet Take 1 tablet by mouth two times a day as needed for constipation. mirabegron (MYRBETRIQ) 50 mg Tb24 Take 50 mg by mouth once daily. ondansetron orally disintegrating (ZOFRAN ODT) 4 mg disintegrating tablet Take 4 mg by mouth every 8 hours as needed. medroxyPROGESTERone (DEPO-PROVERA) 150 mg/mL injection Inject 150 mg intramuscularly every 12 weeks. DULoxetine (CYMBALTA) 30 mg capsule Take one tab along with the 60mg tab to equal 90mg po qd levothyroxine (SYNTHROID) 50 mcg tablet Take 50 mcg by mouth daily before breakfast. hydrOXYchloroQUINE (PLAQUENIL) 200 mg tablet Take 1 tablet by mouth two times a day. benzonatate (TESSALON PERLES ORAL) budesonide (PULMICORT) 1 [...] Take 20 mg by mouth once daily. I have reviewed the Albert Status Assessment responses and discussed these with the patient: yes Rachele Fenton APRN.SALES TRAINER HEADACHE SCORES: 02/01/2024 12/30/2024 04/10/2025 Headache Questions ER visits since last office visit: 0 0 0 Hospital stays since last office visit 0 0 0 Limited ADLs in the last month: 0 0 0 Days missed from work or school in the last month: 0 0 0 Days headache pain free in the last month: 25 25 25 Days per month with ALL of the following symptoms - decreased productivity, light sensitivity and nausea: 0 0 0 Initial improvement of headache after botox injection at last visit: Not applicable, I did not havea botox injection at my last visit Not applicable, I did not have a botox injection at my last visit Not applicable, I did not have a botox injection at my last visit PRN medication usage in the last month: 0 30 Patient impression of improvement since last visit: Very much improved Much improved Much improved 02/01/2024 12/30/2024 04/10/2025 HIT-6 HIT-6 46 (Little or no impact) 42 (Little or no impact) 46 (Little or no impact) 02/01/2024 12/30/2024 04/10/2025 ELINOR - 2/7 SCORES ELINOR-2 Score 0 0 2 02/01/2024 12/30/2024 04/10/2025 Migraine Specific QOL - Higher scores indicate better HRQL Role Function-Restrictive Transformed Score (range: 0-100) 100 100 100 Role Function-Preventive Transformed Score (range: 0-100) 100 100 100 Emotional Function Transformed Score (range: 0-100) 100 100 100 02/01/2024 12/30/2024 04/10/2025 PHQ-9 Score 5 2 4 Studies to Review: No MRI Head/Brain - Last 2 Impressions MRI BRAIN WO/W IVCON Exam End: 02/21/2025 11:17 AM (Final result) Impression: IMPRESSION: Expected postoperative changes from right sphenoid wing and middle cranial fossa mass resection. No residual mass or pathologic enhancement. ... 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 MRA Head and/or Neck - Last 2 [...] soft tissue component identified in the orbit. Milking Worker: GUANACO Transcribe Date/Time: Jan 31 2024 3:33P [...] normal in rate, volume and articulation, and clear,coherent, and relevant. Short and halfway memory, cognition and general fund of knowledge are good. Attention span and concentration are good. HEENT: Head is normocephalic and features were symmetric. Musculoskeletal: Patient able to sit up right in chair for entirety of visit. Cranial Nerves: III, IV, -EOMI: full. VII-face is symmetric without evidence of weakness. VIII-hearing intact. ASSESSMENT/PLAN: 1. Meningioma (HCC) (D32.9) - Status post brain surgery in February with no reported complications; follow-up MRI scheduled for August. 2. Chronic daily headache (R51.9) - Improved control on current regimen. - Continue Cymbalta as prescribed. - Continue nortriptyline 10 mg nightly for 2 more months, then discontinue; patient to update on status a few weeks after stopping. - Continue Robaxin as needed for neck pain. - Educated patient on potential to eventually wean off nortriptyline if stable; discussed that bothCymbalta and nortriptyline are antidepressants with efficacy for neck pain. - Follow-up in 6 months (around September) to reassess headache control and medication regimen. HEADACHE MANAGEMENT: (You are the primary guardian of your health and headache. Keep track of all medications: This includes the reason for use, side effects and benefits.) MEDICATION TREATMENT: Medications to Start Taking None Instructed patient about medications. Headache education was [...] outlining all of the above were given. Follow-up: 6 months, PRN Level of Service: Virtual Visit 20 minutes Recording using [employer] software for draft documentation of the visit was discussed with the patient/authorized traffic workforce representative; all questions welcomed and answered. Patient/authorized traffic workforce representative agreed to proceed Rachele Fenton APRN.[facility] April 12, 2025 documented in this encounter Plan of Treatment Upcoming Encounters Date Type Department Care Team (Late st Contact Info) Description 06/22/2025 2:20 PM EDT Office Visit Rheumatology [address] [place] [address] Zulema Mclean MD [address] [place] [address] 6 month follow up Scheduled Referrals Name Type Priority Associated Diagnoses Orde r Schedule PROVIDER ORDERED FOLLOW UP Referral Routine Chronic daily headache Expected: 10/13/2025, Expires: 04/12/2026 documented as of this encounter Visit Diagnoses Diagnosis Meningioma (HCC)- Primary Benign neoplasm of cerebral meninges Chronic daily headache Headache documented in this encounter Care Teams Gaming Director Relationship Specialty Start Date End Date Jesus Camacho MD [address] [place] [address] PCP - General Family Medicine 05/12/23 Jesus Camacho MD Referring Family Medicine 01/14/21 Jesus Camacho MD [address] [place] [address] Referring Family Medicine 05/12/23 documented as of this encounter
--- OUTSIDE RECORDS SUMMARY | 2025-04-24 08:30 | XMS_ITS | Encounter Summary ---
Author Organization [facility] Address [address] [place] [address] Care Team Providers Care Payable Representative Name Role Phone Jesus Camacho MD Unavailable [phone] Jesus Camacho MD Unavailable [phone] Jesus Camacho MD Primary Care Provider [phone] Source Comments In the event this information is protected by the Federal Confidentiality of Alcohol and Drug AbusePatient Records regulations: The Federal rules restrict any use of the information to criminally investigate or prosecute any alcohol or drug abuse patient.[facility] Encounter Details Date Type Department Care Team (Late st Contact Info) Description 05/23/2024 Patient [facility] HB-[address] [place] [id number] Sabina Carrillo RPh At your next appointment, choose [facility]. Social History Tobacco Use Types Packs/Day Years Used Date Smoking Tobacco: Former Smokeless Tobacco: Never Alcohol Use Standard Drinks/Week Comments Yes 0 (1 standard drink = 0.6 oz pur e alcohol) PHQ-2 Answer Date Recorded PHQ-2 score 0 02/01/2024 Area Deprivation Index Answer Date Eliseo rded National Score (1-100), lower number is lower ri sk 89 06/01/2023 State Score (1-10), lower number is lower risk 8 06/01/2023 Data from: https://www.neighborhoodatlas.medicine.[facility]/. Last address used for calculation [address] 06/01/2023 Comments No Sex and Gender Information Value Date Recorded Sex Assigned at Female 02/25/2021 11:09 PM EDT Legal Sex Female 8:01 AM EST Gender Identity Female 02/25/2021 11:09 PM EDT Sexual Orientation Straight 02/25/2021 11 :09 PM EDT documented as of this encounter Plan of Treatment Upcoming Encounters Date Type Department Care Team (Late st Contact Info) Description 06/22/2025 2:20 PM EDT Office Visit Rheumatology [address] [place] [address] [facility]ulema Mclean MD [address] [place] [address] 6 month follow up documented as of this encounter Visit Diagnoses Not on filedocumented in this encounter Care Teams Payable Representative Relationship Specialty Start Date End Date Jesus Camacho MD [address] [place] [address] PCP - General Family Medicine 05/12/23 Jesus Camacho MD Referring Family Medicine 01/14/21 Jesus Camacho MD [address] [place] [address] Referring Family Medicine 05/12/23 documented as of this encounter
--- OUTSIDE RECORDS SUMMARY | 2025-04-24 08:31 | XMS_ITS | Patient Health Record ---
Author Organization [facility] in [place] Address [address] [place] [address] Care Team Providers Care Bad Credit Collector Name Role Phone Eric Camacho Primary Care Provider [phone] Allergies No Known Allergies Results Component Value Reference Range Notes CBC AUTO DIFF Reviewed date:02/02/2025 08:06:47 PM Interpretation: Performing Lab: Notes/Report: [facility] , White Blood Count 8.3 4.0-11.0 10 3/uL Red Blood Count 4.29 4.20-5.40 10 6/uL Hemoglobin 12.9 12.0-16.0 g/dL Hematocrit 39.6 36.0-48.0 % Mean Corpuscular Volume 92.3 81.0-99.0 fL Mean Corpuscular Hemoglobin 30.1 26.7-34.0 pg Mean Corpuscular HGB Conc 32.6 29.9-35.2 g/dL Red Cell Distribution Width 13.0 11.0-15.0 % Platelet Count 378 150-450 10 3/uL Mean Platelet Volume 10.0 9.5-13.5 fL Neutrophils Percent Auto 55.7 43.0-75.0 % Lymphocytes Percent Auto 32.2 20.5-60.0 % Monocytes Percent Auto 9.7 1.7-12.0 % Eosinophils Percent Auto 1.3 0.9-7.0 % Basophils Percent Auto 0.7 0.2-2.0 % Immature Granulocytes Pct Auto 0.4 0.0-0.5 % Neutrophils Absolute Auto 4.6 1.4-6.5 10 3/uL Lymphocytes Absolute Auto 2.7 1.2-3.8 10 3/uL Monocytes Absolute Auto 0.8 0.3-0.8 10 3/uL Eosinophils Absolute Auto 0.1 0.0-0.7 10 3/uL Basophils Absolute Auto 0.1 0.0-0.1 10 3/uL Immature Granulocytes Abs Auto 0.03 0.00-0.03 10 3/uL Performing Lab: see note ML - [facility] LB TSH Reviewed date:02/02/2025 08:06:48 PM Interpretation: Performing Lab: Notes/Report: [facility] , Thyroid Stimulating Hormone 2.619 0.358-3.740 u IU/mL Performing Lab: see note ML - [facility] LB T4 Reviewed date:02/02/2025 08:06:47 PM Interpretation: Performing Lab: Notes/Report: [facility] , T4 Thyroxine 9.20 4.80-13.90 ug/dL Performing Lab: see note - [facility] PROF 14(COMP METB) Reviewed date:02/02/2025 08:06:47 PM Interpretation: Performing Lab: Notes/Report: [facility] , Sodium 140 136-145 mmol/L Potassium 4.5 3.5-5.1 mmol/L Chloride 104 98-107 mmol/L Carbon Dioxide 24.3 21.0-32.0 mmol/L Anion Gap 16.2 Glucose 101 74-106 mg/dL Blood Urea Nitrogen 18.0 7.0-18.0 mg/dL Creatinine 1.36 0.55-1.02 mg/dL Estimated GFR ( Vear 50 >=60 mL/mi n/1.73m 2 Estimated GFR (Non- Kylah 42 >=60 mL/mi n/1.73m 2 BUN Creatinine Ratio 13.2 Calcium 8.9 8.5-10.1 mg/dL Bilirubin Total 0.3 0.2-1.0 mg/dL Aspartate Amino Transferase 16 15-37 U/L Alanine Aminotransferase 35 14-59 U/L Alkaline Phosphatase 52 46-116 U/L Total Protein 6.8 6.4-8.2 g/dL Albumin Level 3.8 3.4-5.0 g/dL Globulin 3.0 Albumin Globulin Ratio 1.3 Performing Lab: see note ML - [facility] LB IRON Reviewed date:02/02/2025 08:06:47 PM Interpretation: Performing Lab: Notes/Report: [facility] , Iron 43.0 50.0-170.0 ug/dL Performing Lab: see note - [facility] LB FREE T3 Reviewed date:02/02/2025 08:06:47 PM Interpretation: Performing Lab: Notes/Report: [facility] , Free T3 3.02 2.18-3.98 pg/mL Performing Lab: see note - [facility] LB Mammogram Reviewed date:09/16/2024 02:53:56 PM Interpretation:undefined Performing Lab: Notes/Report: undefined HCG Qualitative* Reviewed date:07/18/2024 07:33:11 PM Interpretation: Performing Lab: Notes/Report: [facility] , HCG Qualitative NEGATIVE NEGATIVE Performing Lab: see note - [facility] LB COVID-19, Flu A+B IH Reviewed date:02/02/2025 08:06:48 PM Interpretation: Performing Lab: Notes/Report: COVID POSITIVE FLU [...] UROBILINOGEN n NITRITE n LEUKOCYTE ESTERASE 15 PROF CHEM 8 (BAS METB) Reviewed date:02/08/2025 07:39:28 PM Interpretation: Performing Lab: Notes/Report: [facility] , Sodium 140 136-145 mmol/L Potassium 4.3 3.5-5.1 mmol/L Chloride 103 98-107 mmol/L Carbon Dioxide 27.9 21.0-32.0 mmol/L Anion Gap 13.4 Glucose 91 74-106 mg/dL Blood Urea Nitrogen 17.0 7.0-18.0 mg/dL Creatinine 0.85 0.55-1.02 mg/dL Estimated GFR ( Vera >60 >=60 mL/mi n/1.73m 2 Estimated GFR (Non- Kylah >60 >=60 mL/mi n/1.73m 2 BUN Creatinine Ratio 20.0 Calcium 9.2 8.5-10.1 mg/dL Performing Lab: see note ML - [facility] LB VITAMIN D 25 [place] Reviewed date:02/02/2025 08:06:48 PM Interpretation: Performing Lab: Notes/Report: [facility] , Vitamin D 32.7 <20 ng/mL Vit D deficient 20-<30 ng/mL Vit D insufficient 30-100 ng/mL Vit D sufficient >100 ng/mL Potential Toxicity Performing Lab: see note ML - [facility] LB Reason For Referral No Information Medications Medication SIG (Take, Route, Frequency, Duration) Notes Start Date End Date Status DULoxetine HCl 60 MG TAKE 1 CAPSULE BY MOUTH EVERY DAY Oral for 30 Days Active predniSONE 10 MG 5 tabs per day for 3 days, 4 tabs per day for 3 ays, 3 tabs perday for 3 days, 2 tabs per day for 3 days, 1 tab a day for 3 days, 1/2 tab a day for 4 days Orally Once a day for 19 days 03/28/2025 Active Farxiga 5 MG TAKE 1 TABLET BY ADRIAN TH EVERY DAY for 90 Active Dexlansoprazole 60 MG TAKE 1 CAPSULE BY MOUTH TWICE A DAY Orally BID for 90 days Active Cetirizine HCl 10 MG 1 tablet Orally Onc e a day for 30 days 05/04/2024 Active Simvastatin 20 MG 1 tablet in the evening Orally Once a day for 30 days Active Chlorzoxazone 500 MG 1 tablet as needed Orally bid for 30 days 05/09/2024 Active Pioglitazone HCl 15 MG 1 tablet Orally O nce a day for 30 days Active Carafate 1 GM 1 tablet on an empty stomach Orally Twice a day Active Plaquenil 200 MG as directed Orally bid Active Fioricet 50-300-40 MG 1 capsule as neede d Orally every 4 hrs 03/10/2024 Active Glycopyrrolate 1 MG 1 tablet Orally Once a day Active levoFLOXacin 750 MG 1 tablet Orally Once a day for 10 day(s) 03/20/2025 Active Lubiprostone 24 MCG TAKE 1 CAPSULE BY MOUTH TWICE A DAY for 90 Active metFORMIN HCl 500 mg TAKE 2 TABLETS BY MOUTH TWICE DAILY for 30 Active Levothyroxine Sodium 50 MCG TAKE 1 TABLE T BY MOUTH EVERY DAY IN THE MORNING ON EMPTY STOMACH FOR 30 DAYS for 30 days Active predniSONE 20 MG 3 tablets Orally Onc e a day for 5 days 03/20/2025 Active Lodine 400 MG 1 tablet with food Orally Twice a day Active lamoTRIgine 200 MG TAKE 3 TABLETS BY MOUTH ONCE DAILY for 90 Active Lancets 33G - Use 1 lancet to chec k glucose once daily for 90 days 03/06/2023 Active Ipratropium-Albuterol 0.5-2.5 (3) MG/3ML USE 1 VIAL INHALATION EVERY 6 HOURS NEEDED for 30 Active Lactulose 20 GM/30ML 30 ml Orally Once a day - up to bid for 30 days Active Blood Glucose Test - Use 1 strip In Vitr o daily for 90 days 03/06/2023 Active Budesonide 1 MG/2ML 1 mL Inhalation Once a day DX J44.9 for 90 days Active Albuterol Sulfate (2.5 MG/3ML) 0.083% 3 mL as needed Inhalation every 6 hrs for 30 days Active Myrbetriq 50 MG 1 tablet Orally Once a day for 30 days 06/22/2024 Active Blood Glucose Monitor System w/Device Use Device to check glucose every day for 90 days 03/06/2023 Active Nebulizer Mask and Tubing-Adult - use daily with neb solution for 365 days DX j44.9 DX:j44.9 05/20/2024 Active Ondansetron HCl 4 MG TAKE 1 TABLET BY [facility] EVERY 6 HOURS NEEDED FOR NAUSEA/VOMITING 30 DAYS for 30 Active Ibuprofen 800 MG 1 tablet with food o r milk as needed Orally every 8 hrs for 25 days Active Doxepin HCl 10 MG TAKE 1 CAPSULE BY MOUTH THREE TIMES A DAY FOR 30 DAYS for 90 Active Immunizations Vaccine Route Administration Date Status Comme nts Flu, Flucelvax (1813-6558) (46033) 6 mos +, single-dose syringe IM Intramuscular [...] Problem Status W/U Status Risk Notes Problem 21301907 Iron deficiency anemia, unspecified (D50.9) Active confirmed Problem 719261227 Hypothyroidism, unspecified (E03.9) Active confirmed Problem Chronic obstructive pulmonary disease (75560420) Chronic obstructive pulmonary disease, unspecified (J44.9) Active confirmed Problem 658564410 Benign neoplasm of meninges, unspecified (D32.9) Active confirmed Problem 492671396 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) Active confirmed Problem Brachial plexus disorder (3469769) Brachial plexus disorders (G54.0) Active confirmed Problem 453255425 Other cervical disc degeneration, unspecified cervical region (M50.30) Active confirmed Problem 815695826 Other intervertebral disc degeneration, lumbar region (M51.36) Active confirmed Problem Fibromyalgia (798100944) Fibromyalgia (M79.7) Active confirmed Problem Right upper quadrant pain (679210140) Right upper quadrant pain (R10.11) Active confirmed Problem 471200309 Nausea (R11.0) Active confirmed Problem 940921657 Vomiting, unspecified (R11.10) Active confirmed Problem Fatigue (52783993) Fatigue (R53.83) Active conf irmed Problem Hypertension (56394255) Hypertension (I10) Active confirmed Problem COPD - Chronic obstructive pulmonary disease (67879257) COPD (chronic obstructive pulmonary disease) (J44.9) Active confirmed Problem Gastroesophageal reflux disease (816001173) GERD (gastroesophageal reflux disease) (K21.9) Active confirmed Problem Obstructive sleep apnea syndrome (05436018) MAREK (obstructive sleep apnea) (G47.33) Active confirmed Problem Eczema (24446207) Eczema (L30.9) Active confirm ed Problem Epigastric pain (42625360) Epigastric abdominal pain (R10.13) Active confirmed Problem Disorder of lumbar disc (475031848) Lumbar disc disease (M51.9) Active confirmed Problem Constipation (37192264) Constipation (K59.00) Active confirmed Problem Well adult (691538882) Well adult (Z00.00) Active confirmed Problem Solitary nodule of lung (626979825) Lung nodule (R91.1) Active confirmed Problem Paresthesia (36945755) Paresthesia (R20.2) Active confirmed Problem Benign neoplasm of cerebral meninges (70270882) Meningioma (D32.9) Active confirmed Problem Fibromyalgia (691628220) Fibromyalgia (M79.7) Active confirmed Problem Tension headache (778838663) Tension headache (G44.209) Active confirmed Problem Bursitis of left shoulder (765444028282681) Bursitis of shoulder, left (M75.52) Active confirmed Problem Excessive sweating (41577030) Excessive sweating (R61) Active confirmed Problem Chronic obstructive pulmonary disease (37278427) Advanced COPD (J44.9) Active confirmed Problem Mixed anxiety and depressive disorder (677032702) Anxiety and depression (F41.9) Active confirmed Problem Ankle edema (59044378) Ankle edema (M25.473) Active confirmed Problem Abnormal PFTs (R94.2) Active confirmed Problem Irritable bowel syndrome (02641766) Irritable bowel syndrome (IBS) (K58.9) Active confirmed Problem Type II diabetes mellitus without complication (737436492) Controlled type 2 diabetes mellitus (E11.9) Active confirmed Problem Obese class III (finding) (614262316) Obesity, class 3 (E66.813) Active confirmed Vital Signs Heart Rate 83 /min 03/20/2025 Temperature 98.5 degrees Fahrenheit 09/05/2024 Oximetry 98 % 03/20/2025 Blood pressure diastolic 70 mm Hg 03/20/2025 Height 65.5 in 03/20/2025 Blood pressure systolic 118 mm Hg 03/20/2025 Weight 247.8 lbs 03/20/2025 BMI 40.6 kg/m2 03/20/2025 Encounters Encounter Location Date Provider Diagnosis [facility] ([place], [place]) [address] [place] [address] 02/14/2025 Eric Camacho [facility] [address] [place] [address] 02/16/[address] [facility] ([place], [place] [address] [place] [address] 02/16/[address] [facility] ([place] [place] [address] [place] [address] 02/18/[address] [facility] ([place] [place] [address] [place] [address] 03/21/2025 Eric Camacho [facility] [address] [facility] [address] 03/28/[address] [facility] ([place], [place]) [address] [facility] [place] [address] 11/14/2024 Eric Camacho [facility] [address] [place] [address] 12/12/2024 Eric Camacho Iron deficiency ane alexandra, unspecified D50.9 [facility] ([place], [place] [address] [facility] [place] [address] 12/14/2024 Eric Camacho [facility] [address] [facility] [place] [address] 02/02/2025 Eric Camacho Abnormal renal func tion N28.9 [facility] ([place], [place] [address] [facility] [place] [address] 02/08/[address] [facility] ([place] [place] [address] [facility] [place] [address] 02/08/2025 Eric Camacho [facility] [address] [facility] [place] [address] 06/23/2024 Eric Camacho Hypertension I10 [facility] ([place], [place] [address] [facility] [place] [address] 07/19/[address] [facility] ([place], [place] [address] [place] [address] 08/18/[address] [facility] ([place] [place] [address] [place] [address] 09/01/[address] [facility] ([place] [place] [address] [facility] [place] [address] 09/05/[address] [facility] ([place] [place] [address] [place] [facility] [place] [place] [address] 09/19/[address] [facility] ([place] [place] [address] [place] [place] [address] 05/04/[address] [facility] ([place] [place] [address] [place] [place] [address] 05/06/[address] [facility] ([place] [place] [address] [place] [place] [address] 05/09/[address] [facility] ([place] [place] [address] [place] [place] [address] 05/16/2024 Eric Hoy Hypothyroidism, unspecified E03.9 [facility] [address] [place] [address] 05/20/[address] [facility] ([place], [place] [address] [place] [facility] [place] [address] 05/18/2024 Eric Hoy Hypertension I10 and Encounter for medication review Z79.899 [facility] [place] [address] [place] [facility] [place] [place] [address] 05/26/2024 Eric Hoy Urinary urgency R39. 15 [facility] ([place] [place] [address] [place] [place] [place] [address] 02/02/2025 Eric Hoy Benign neoplasm of meninges, unspecified D32.9 ; Obesity, class 3 E66.813 ; Chronic obstructive pulmonary disease, unspecified J44.9 ; Advanced COPD J44.9 and COPD (chronic obstructive pulmonary disease) J44.9 [facility] ([place], [place] [address] [place] [facility] [place] [address] 03/20/2025 Eric Hoy Chronic obstructive pulmonary disease, unspecified J44.9 [facility] ([place] [place] [address] [place] [facility] [place] [address] 05/04/2024 Eric Hoy Acute bronchitis, unspecified organism J20.9 [facility] [place] [address] [place] [facility] [place] [place] [address] 06/22/2024 Eric Hoy Dysuria R30.0 ; Service Support Representative vanessa obstructive pulmonary disease, unspecified J44.9 and Lumbar disc disease M51.9 [facility] ([place], [place]) [address] [place] [address] 08/10/2024 Eric Camacho COPD (chronic obstructive pulmonary disease) J44.9 [facility] [place] [address] [place] [address] 09/05/2024 Eric Hoy Acute bronchitis, unspecified organism J20.9 [facility] [place] [address] [place] [address] 02/08/2025 Eric Hoy Hypotension I95.9 Assessments Encounter Date Diagnosis (ICD Code) Assessment Notes Treatment Notes Treatment Clinical Notes Section Notes 05/18/2024 Hypertension (ICD-10 - I10) needs to loose 10 lb or woulnd cont 05/18/2024 Encounter for medication review (ICD-10 - Z79.899) 05/04/2024 Acute bronchitis, unspecified organism (ICD-10 - J20.9) Rest and drink more liquids, especially water. You may use a humidifier or vaporizer to help keep the drainage moist. Rils-fph-jydtxcd Nasal Saline may help the stuffy and runny nose. Use Ibuprofen and or Tylenol as needed for fever, chills, body aches or pain. Children 5 years old should not be given pogg-wiz-bhpohvo cough and cold medications such as guaifenesin and dextromethorphan. If you're over age 5, you may try nusu-iaw-nuxhqyb cold medications such as guaifenesin and dextromethorphan, [...] obstructive pulmonary disease, unspecified (ICD-10 - J44.9) 08/10/2024 COPD (chronic obstructive pulmonary disease) (ICD-10 - J44.9) 09/05/2024 Acute bronchitis, unspecified organism (ICD-10 - J20.9) Rest and drink more liquids, especially water. You may use a humidifier or vaporizer to help keep the drainage moist. Eosc-cro-emhjniq Nasal Saline may help the stuffy and runny nose. Use Ibuprofen and or Tylenol as needed for fever, chills, body aches or pain. Children 5 years old should not be given ozbu-ujq-avufrms cough and cold medications such as guaifenesin and dextromethorphan. If you're over age 5, you may try pdvc-frb-ftiqfat cold medications such as guaifenesin and dextromethorphan, [...] 02/02/2025 Obesity, class 3 (ICD-10 - E66.813) 02/08/2025 Hypotension (ICD-10 - I95.9) 03/20/2025 Chronic obstructive pulmonary disease, unspecified (ICD-10 - J44.9) 05/16/2024 Hypothyroidism, unspecified (ICD-10 - E03.9) 06/23/2024 Hypertension (ICD-10 - I10) 12/12/2024 Iron deficiency anemia, unspecified (ICD-10 - D50.9) 02/02/2025 Abnormal renal function (ICD-10 - N28.9) 02/02/2025 Chronic obstructive pulmonary disease, unspecified (ICD-10 - J44.9) 06/22/2024 Lumbar disc disease (ICD-10 - M51.9) comnpleted paperworlk for houseing 02/02/2025 Advanced COPD (ICD-10 - J44.9) 02/02/2025 COPD (chronic obstructive pulmonary disease) (ICD-10 - J44.9) Plan Of Treatment Pending Test Test Name Order Date GLUCOSE - IN OFFICE 02/12/2023 CMP (COMPLETE METABOLIC PANEL) 4 CMP (COMPLETE METABOLIC PANEL) 3 HEMOGLOBIN A1C (GLYCO) 05/15/2023 HEMOGLOBIN A1C (GLYCO) 04/14/2024 IRON, TOTAL 04/14/2024 IRON, TOTAL 02/02/2025 LIPID PANEL (CHOL/TRIG/HDL/LDL) 05/15/20 23 LIPID PANEL (CHOL/TRIG/HDL/LDL) 04/14/20 24 CBC WITH DIFF 04/14/2024 CBC WITH DIFF 05/15/2023 VITAMIN D, 25 LEVEL (TOTAL) 02/02/2025 VITAMIN D, 25 LEVEL (TOTAL) 04/14/2024 MRI Brain w/wo contrast * 04/10/2023 NUC MED Hida with Ejection Fraction * Insulin Level 04/14/2024 BMP - Basic Metabolic Panel 02/02/2025 CBC W/AUTO DIFF 11/09/2023 STOOL OCCULT BLOOD 05/15/2023 US Renal and Bladder 02/02/2025 CBC AUTO DIFF 12/12/2024 CBC AUTO DIFF 04/10/2023 FERRITIN 04/10/2023 FERRITIN 05/20/2023 FERRITIN 11/09/2023 FERRITIN 12/12/2024 IRON 12/12/2024 IRON 11/09/2023 IRON 05/20/2023 IRON 04/10/2023 VIT B12 AND FOLATE 04/14/2024 MRI CSPINE WO CON 01/15/2024 MRI LSPINE WO CON 01/15/2024 US ABD 02/16/2023 US THYROID 02/09/2024 THYROID PANEL (T4/TSH/FREE T3) 4 THYROID PANEL (T4/TSH/FREE T3) 3 THYROID PANEL (T4/TSH/FREE T3) 5 THYROID PANEL (T4/TSH/FREE T3) 4 CMP (COMP MET PICKETT) w/eGFR CKD-EPI 2024 CBC WITH DIFF 02/02/2025 Insurance Providers Payer Name Payer Address Payer Phone Subscriber Number Group Number Insured Name Patient Relationship to Insured Coverage Start Date Coverage End Date [employer] DUAL ADV PRIMARY MEDICARE [address] [place] [address] [id number] Kourtney Eli Self - patient is the insured MEDICAID [place] 2ND INS [address] [place] [id number] [phone] [id number] Kourtney Eli Self - patient is the insured [place] [address] [place] [address] [id number] Kourtney Eli Self - patient is the insured 0 Medications Administered Medication Instructions Date of Administration Dosage Notes Dexamethasone, 4mg/mL 08/10/2024 8 mg Dexamethasone, 4mg/mL 03/20/2025 8 mg Kenalog-40 05/04/2024 80 mg 80 [...] and depression F41.9 Surgical History Surgery Date(Month/Year) Left C4-5, 5-6 radiofrequency ablation 1 09/17/2023 Repair of bones in left arm d/t fracture Right rib removal Rt Radius core Decompression with Dr. Afsaneh dunbar Carpal Tunnel x2 on right, x1 left Cubital Tunnel, right 2020 Appendectomy craniotomy 02/20/25
--- OUTSIDE RECORDS SUMMARY | 2025-04-24 08:31 | XMS_ITS | Encounter Summary ---
Author Organization [facility] Address [address] [place] [address] Care Team Providers Care Vaccine Customer Representative Name Role Phone Jesus Camacho MD Unavailable [phone] Jesus Camacho MD Unavailable [phone] Jesus Camacho MD Primary Care Provider [phone] Source Comments In the event this information is protected by the Federal Confidentiality of Alcohol and Drug AbusePatient Records regulations: The Federal rules restrict any use of the information to criminally investigate or prosecute any alcohol or drug abuse patient.[facility] Encounter Details Date Type Department Care Team (Late st Contact Info) Description 12/11/2024 Get Medical Advice Neurology Headache [facility] [address] [place] [address] Rachele Fenton, MARILEE.TRANSITIONAL LIVING SPECIALIST [address] [place] [address] Medicine Social History Tobacco Use Types Packs/Day Years [...] is lower risk 8 06/01/2023 Data from: https://www.neighborhoodatlas.medicine.[facility]/. Last address used for calculation [address] [facility] 06/01/2023 Comments No Sex and Gender Information [...] 06/22/2025 2:20 PM EDT Office Visit Rheumatology [address] [place] [address] Zulema Mclean MD [address] [facility] [address] [place] [address] 6 month follow up documented as of this encounter Visit Diagnoses Not on filedocumented in this encounter Care Teams Vaccine Customer Representative Relationship Specialty Start Date End Date Jesus Camacho MD [address] [place] [address] PCP - General Family Medicine 05/12/23 Jesus Camacho MD Referring Family Medicine 01/14/21 Jesus Camacho MD [address] [place] [address] Referring Family Medicine 05/12/23 documented as of this encounter
--- OUTSIDE RECORDS SUMMARY | 2025-04-24 08:31 | XMS_ITS | Encounter Summary ---
Author Organization [facility] Address [facility] [place] [address] Care Team Providers Care Yarn Spinner Name Role Phone Jesus Camacho MD Unavailable [phone] Jesus Camacho MD Unavailable [phone] Jesus Camacho MD Primary Care Provider [phone] Source Comments In the event this information is protected by the Federal Confidentiality of Alcohol and Drug AbusePatient Records regulations: The Federal rules restrict any use of the information to criminally investigate or prosecute any alcohol or drug abuse patient.[facility] Encounter Details Date Type Department Care Team (Late st Contact Info) Description 12/14/2024 Get Medical Advice [facility] [address] [place] [address] Jacky Pineda MD [address] [place] [address] MRI Social History Tobacco Use Types Packs/Day Years [...] is lower risk 8 06/01/2023 Data from: https://www.neighborhoodatlas.medicine.[facility]/. Last address used for calculation [address] [...] 06/22/2025 2:20 PM EDT Office Visit Rheumatology [address] [place] [address] Zulema Mclean MD [address] [facility] [address] [place] [address] 6 month follow up documented as of this encounter Visit Diagnoses Not on filedocumented in this encounter Care Teams Yarn Spinner Relationship Specialty Start Date End Date Jesus Camacho MD [address] [place] [address] PCP - General Family Medicine 05/12/23 Jesus Camacho MD Referring Family Medicine 01/14/21 Jesus Camacho MD [address] [place] [address] Referring Family Medicine 05/12/23 documented as of this encounter
--- OUTSIDE RECORDS SUMMARY | 2025-04-24 08:31 | XMS_ITS | Patient Health Record ---
Author Organization [facility] Address [address] [place] [address] Care Team Providers Care Fabrication Welder Name Role Phone Jesus Camacho Primary Care Provider [facility] Etienne Urbina Unavailable [phone] Reason For Referral No Information Problems Problem Type SNOMED Code ICD Code Onset Dates Problem Status W/U Status Risk Notes Problem 43524688 Radiculopathy, cervical region (M54.12) Active confirmed Problem 38626856 Spinal stenosis, cervical region (M48.02) Active confirmed Problem 199235614 Spinal stenosis, lumbosacral region (M48.07) Active confirmed Problem 33536471 Other intervertebral disc displacement, 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) Active confirmed Problem 38971328 Other intervertebral disc degeneration, lumbosacral region (M51.37) Active confirmed Problem 177266176 Other cervical d isc displacement at C5-C6 level (M50.222) Active confirmed Problem 240922700 Other cervical d isc displacement at C6-C7 level (M50.223) Active confirmed Plan Of Treatment Pending Test Test Name Order Date Lumbar spine, 4v flex ext - 62025 2023 Cervical spine,ap,lat,flex,ext - 05312 0 02/19/2024 SFS - Lumbar Spine PT [...] Date Coverage End [place] [address] [place] [phone] [id number] DEON BUSTAMANTE Self - patient is the insured [facility] [place] [facility] Medicaid [address] [place] [address] [phone] [id number] DEON BUSTAMANTE Self - patient is the insured 4
--- OUTSIDE RECORDS SUMMARY | 2025-04-24 08:31 | XMS_ITS | Encounter Summary ---
Author Organization [facility] Address [facility] [place] [address] Care Team Providers Care Plant Operations Manager Name Role Phone Jesus Camacho MD Unavailable [phone] Jesus Camacho MD Unavailable [phone] Jesus Camacho MD Primary Care Provider [phone] Source Comments In the event this information is protected by the Federal Confidentiality of Alcohol and Drug AbusePatient Records regulations: The Federal rules restrict any use of the information to criminally investigate or prosecute any alcohol or drug abuse patient.[facility] Encounter Details Date Type Department Care Team (Late st Contact Info) Description 12/01/2024 Get Medical Advice [facility] [address] [place] [address] Jacky Pineda MD [address] [place] [address] Surgery Social History Tobacco Use Types Packs/Day Years [...] lower risk 8 06/01/2023 Data from: https://www.neighborhoodatlas.medicine.[facility]/. Last address used for calculation [address] [...] 06/22/2025 2:20 PM EDT Office Visit Rheumatology [address] [place] [address] Zulema Mclean MD [address] [facility] [address] [place] [address] 6 month follow up documented as of this encounter Visit Diagnoses Not on filedocumented in this encounter Care Teams Plant Operations Manager Relationship Specialty Start Date End Date Jesus Camahco MD [address] [place] [address] PCP - General Family Medicine 05/12/23 Jesus Camacho MD Referring Family Medicine 01/14/21 Jesus Camacho MD [address] [place] [address] Referring Family Medicine 05/12/23 documented as of this encounter
--- OUTSIDE RECORDS SUMMARY | 2025-04-24 08:31 | XMS_ITS | Encounter Summary ---
Author Organization Address [address] [place] [address] Care Team Providers Care Pool Player Name Role Phone Jesus Camacho MD Unavailable [phone] Jesus Camacho MD Unavailable [phone] Jesus Camacho MD Primary Care Provider [phone] Source Comments In the event this information is protected by the Federal Confidentiality of Alcohol and Drug AbusePatient Records regulations: The Federal rules restrict any use of the information to criminally investigate or prosecute any alcohol or drug abuse patient. Reason for Visit * Reason Comments Refill Request Encounter Details Date Type Department Care Team (Late st Contact Info) Description 10/08/2024 Refill Rheumatology [address] [place] [address] Zulema Mclean MD [address] [facility] [address] [place] [address] Refill Request Social History Tobacco Use Types Packs/Day Years [...] PM EDT documented as of this encounter Miscellaneous Notes * Telephone Encounter - La Nena Waterman LPN - 10/10/2024 2:50 PM EST duplicate documented in this encounter Plan of Treatment Upcoming Encounters Date Type Department Care Team (Late st Contact Info) Description 06/22/2025 2:20 PM EDT Office Visit Rheumatology [address] [place] [address] Zulema Mclean MD [address] [facility] [address] [place] [address] 6 month follow up documented as of this encounter Visit Diagnoses Not on filedocumented in this encounter Care Teams Pool Player Relationship Specialty Start Date End Date Jesus Camacho MD [address] [place] [address] PCP - General Family Medicine 05/12/23 Jesus Camacho MD Referring Family Medicine 01/14/21 Jesus Camacho MD [address] [id number] Referring Family Medicine 05/12/23 documented as of this encounter
--- OUTSIDE RECORDS SUMMARY | 2025-04-24 08:31 | XMS_ITS | Encounter Summary ---
Author Organization [facility] Address [facility] [place] [address] Care Team Providers Care Quality Assurance Coach Name Role Phone Jesus Camacho MD Unavailable [phone] Jesus Camacho MD Unavailable [phone] Jesus Camacho MD Primary Care Provider [phone] Source Comments In the event this information is protected by the Federal Confidentiality of Alcohol and Drug AbusePatient Records regulations: The Federal rules restrict any use of the information to criminally investigate or prosecute any alcohol or drug abuse patient.[facility] Encounter Details Date Type Department Care Team (Late st Contact Info) Description 03/19/2025 Get Medical Advice [facility] [address] [place] [place] [id number] Jacky Pineda MD [address] [place] [address] Incision picture Social History Tobacco Use Types Packs/Day Years Used Date Smoking Tobacco: Former Smokeless Tobacco: Never Comments:Started 1994. Quit 2009. 1 ppd Alcohol Use Standard Drinks/Week Comments Yes 0 (1 standard drink = 0.6 oz pur e alcohol) 3-4 drinks on occasion PHQ-2 Answer Date Recorded PHQ-2 score 0 12/30/2024 Area Deprivation Index Answer Date Eliseo rded National Score (1-100), lower number is lower ri sk 89 06/01/2023 State Score (1-10), lower number is lower risk 8 06/01/2023 Data from: https://www.neighborhoodatlas.medicine.[facility]/. Last address used for calculation [...] 06/22/2025 2:20 PM EDT Office Visit Rheumatology [address] [place] [address] Zulema Mclean MD [address] [facility] [address] [place] [address] 6 month follow up documented as of this encounter Visit Diagnoses Not on filedocumented in this encounter Care Teams Quality Assurance Coach Relationship Specialty Start Date End Date Jesus Camacho MD [address] [place] [address] PCP - General Family Medicine 05/12/23 Jesus Camacho MD Referring Family Medicine 01/14/21 Jesus Camacho MD [address] [place] [address] Referring Family Medicine 05/12/23 documented as of this encounter
--- OUTSIDE RECORDS SUMMARY | 2025-04-24 08:31 | XMS_ITS | Encounter Summary ---
Author Organization [facility] Address [address] [place] [address] Care Team Providers Care Antique Refinisher Name Role Phone Jesus Camacho MD Unavailable [phone] Jesus Camacho MD Unavailable [phone] Jesus Camacho MD Primary Care Provider [phone] Source Comments In the event this information is protected by the Federal Confidentiality of Alcohol and Drug AbusePatient Records regulations: The Federal rules restrict any use of the information to criminally investigate or prosecute any alcohol or drug abuse patient.[facility] Encounter Details Date Type Department Care Team (Late st Contact Info) Description 12/05/2024 Patient Msg [facility] [address] [place] [address] Provider, [facility]cf Today's Phone Call - Vision Testing Social History Tobacco Use Types Packs/Day Years [...] is lower risk 8 06/01/2023 Data from: https://www.neighborhoodatlas.medicine.[facility]/. Last address used for calculation [address] [...] 06/22/2025 2:20 PM EDT Office Visit Rheumatology [address] [place] [address] Zulema Mclean MD [address] [facility] [address] [place] [address] 6 month follow up documented as of this encounter Visit Diagnoses Not on filedocumented in this encounter Care Teams Antique Refinisher Relationship Specialty Start Date End Date Jesus Camacho MD [address] [place] [address] PCP - General Family Medicine 05/12/23 Jesus Camacho MD Referring Family Medicine 01/14/21 Jesus Camacho MD [address] [place] [address] Referring Family Medicine 05/12/23 documented as of this encounter
--- OUTSIDE RECORDS SUMMARY | 2025-04-24 08:31 | XMS_ITS | Encounter Summary ---
Author Organization [facility] Address [facility] [place] [address] Care Team Providers Care Licensed Practical Nurse Instructor Name Role Phone Jesus Camacho MD Unavailable Jesus Camacho MD Unavailable [phone] Jesus Camacho MD Primary Care Provider [phone] Source Comments In the event this information is protected by the Federal Confidentiality of Alcohol and Drug AbusePatient Records regulations: The Federal rules restrict any use of the information to criminally investigate or prosecute any alcohol or drug abuse patient.[facility] Encounter Details Date Type Department Care Team (Late st Contact Info) Description 12/09/2024 Get Medical Advice [facility] [address] [id number] Jacky Pineda MD [address] [place] [address] Kourtney Novak Social History Tobacco Use Types Packs/Day Years [...] is lower risk 8 06/01/2023 Data from: https://www.neighborhoodatlas.medicine.[facility]/. Last address used for calculation [address] [facility] 06/01/2023 Comments No Sex and Gender Information [...] 06/22/2025 2:20 PM EDT Office Visit Rheumatology [address] [place] [address] Zulema Mclean MD [address] [facility] [address] [place] [address] 6 month follow up documented as of this encounter Visit Diagnoses Not on filedocumented in this encounter Care Teams Licensed Practical Nurse Instructor Relationship Specialty Start Date End Date Jesus Camacho MD [address] [place] [address] PCP - General Family Medicine 05/12/23 Jesus Camacho MD Referring Family Medicine 01/14/21 Jesus Camacho MD [address] [place] [address] Referring Family Medicine 05/12/23 documented as of this encounter
--- OUTSIDE RECORDS SUMMARY | 2025-04-24 08:32 | XMS_ITS | Encounter Summary ---
Author Organization [facility] Address [address] [place] [address] Care Team Providers Care Retail Store Associate Name Role Phone Jesus Camacho MD Unavailable [phone] Jesus Camacho MD Unavailable [phone] Jesus Camacho MD Primary Care Provider [phone] Source Comments In the event this information is protected by the Federal Confidentiality of Alcohol and Drug AbusePatient Records regulations: The Federal rules restrict any use of the information to criminally investigate or prosecute any alcohol or drug abuse patient.[facility] Encounter Details Date Type Department Care Team (Late st Contact Info) Description 02/03/2024 Cure Form [facility] [address] [phone] Shakila Phillips, RN [address] [place] [address] Intracranial meningioma (HCC) (Primary Dx); Preop testing Social History Tobacco Use Types Packs/Day Years [...] lower risk 8 06/01/2023 Data from: https://www.neighborhoodatlas.medicine.[facility]/. Last address used for calculation [address] [...] 06/22/2025 2:20 PM EDT Office Visit Rheumatology [address] [place] [address] Zulema Mclean MD [address] [facility] [address] [place] [address] 6 month follow up Scheduled Orders Name Type Priority Associated Diagnoses Orde r Schedule REFER FOR ADMIT INTERVIEW Procedures Routine Intracranial meningioma (HCC) Preop testing Ordered: 02/03/2024 documented as of this encounter Visit Diagnoses Diagnosis Intracranial meningioma (HCC)- Primary Benign neoplasm of cerebral meninges Preop testing Preoperative examination, unspecified documented in this encounter Care Teams Retail Store Associate Relationship Specialty Start Date End Date Jesus Camacho MD [address] [place] [address] PCP - General Family Medicine 05/12/23 Jesus Camacho MD Referring Family Medicine 01/14/21 Jesus Camacho MD [address] [place] [address] Referring Family Medicine 05/12/23 documented as of this encounter
--- OUTSIDE RECORDS SUMMARY | 2025-04-24 08:33 | XMS_ITS | Encounter Summary ---
Author Organization [facility] Address [address] [place] [address] Care Team Providers Care Postal Delivery Officer Name Role Phone Jesus Camacho MD Unavailable [phone] Jesus Camacho MD Unavailable Jesus Camacho MD Primary Care Provider [phone] Source Comments In the event this information is protected by the Federal Confidentiality of Alcohol and Drug AbusePatient Records regulations: The Federal rules restrict any use of the information to criminally investigate or prosecute any alcohol or drug abuse patient.[facility] Encounter Details Date Type Department Care Team (Late st Contact Info) Description 11/30/2023 Patient Msg Rheumatology [address] [place] [address] Provider, [facility] Eye exam Social History Tobacco Use Types Packs/Day Years Used Date Smoking Tobacco: Former Smokeless Tobacco: Never Alcohol Use Standard Drinks/Week Comments Yes 0 (1 standard drink = 0.6 oz pur e alcohol) PHQ-2 Answer Date Recorded PHQ-2 score 0 06/19/2023 Area Deprivation Index Answer Date Eliseo rded National Score (1-100), lower number is lower ri sk 89 06/01/2023 State Score (1-10), lower number is lower risk 8 06/01/2023 Data from: https://www.neighborhoodatlas.medicine.[facility]/. Last address used for calculation [address] 06/01/2023 Comments No Sex and Gender [...] 06/22/2025 2:20 PM EDT Office Visit Rheumatology [address] [place] [address] Zulema Mclean MD [address] [facility] [address] [place] [address] 6 month follow up documented as of this encounter Visit Diagnoses Not on filedocumented in this encounter Care Teams Postal Delivery Officer Relationship Specialty Start Date End Date Jesus Camacho MD [address] [place] [address] PCP - General Family Medicine 05/12/23 Jesus Camacho MD Referring Family Medicine 01/14/21 Jesus Camacho MD [address] [place] [address] Referring Family Medicine 05/12/23 documented as of this encounter
--- OUTSIDE RECORDS SUMMARY | 2025-04-24 08:33 | XMS_ITS | Encounter Summary ---
Author Organization [facility] Address [address] [place] [address] Care Team Providers Care Putty Glazer Name Role Phone Jesus Camacho MD Unavailable [phone] Jesus Camacho MD Unavailable [phone] Jesus Camacho MD Primary Care Provider [phone] Source Comments In the event this information is protected by the Federal Confidentiality of Alcohol and Drug AbusePatient Records regulations: The Federal rules restrict any use of the information to criminally investigate or prosecute any alcohol or drug abuse patient.[facility] Encounter Details Date Type Department Care Team (Late st Contact Info) Description 01/27/2024 [place] [address] Provider, [facility] Questionnaire Submission Social History Tobacco Use Types Packs/Day Years [...] is lower risk 8 06/01/2023 Data from: https://www.neighborhoodatlas.medicine.[facility].edu/. Last address used for calculation [address] 06/01/2023 Comments No Sex and Gender [...] 06/22/2025 2:20 PM EDT Office Visit Rheumatology [address] [place] [address] Zulema Mclean MD [address] [facility] [address] [place], [place] [address] 6 month follow up documented as of this encounter Visit Diagnoses Not on filedocumented in this encounter Care Teams Putty Glazer Relationship Specialty Start Date End Date Jesus Camacho MD [address] [place] [address] PCP - General Family Medicine 05/12/23 Jesus Camacho MD Referring Family Medicine 01/14/21 Jesus Camacho MD [address] [place] [address] Referring Family Medicine 05/12/23 documented as of this encounter
--- OUTSIDE RECORDS SUMMARY | 2025-04-24 08:33 | XMS_ITS | Encounter Summary ---
Author Organization [facility] Address [address] [place] [address] Care Team Providers Care Heavy Cleaner Name Role Phone Jesus Camacho MD Unavailable [phone] Jesus Camacho MD Unavailable [phone] Jesus Camacho MD Primary Care Provider [phone] Source Comments In the event this information is protected by the Federal Confidentiality of Alcohol and Drug AbusePatient Records regulations: The Federal rules restrict any use of the information to criminally investigate or prosecute any alcohol or drug abuse patient.[facility] Encounter Details Date Type Department Care Team (Late st Contact Info) Description 11/30/2023 Patient Msg [facility] [address] [place] [address] Laron Lou DO, PhD [address] [facility] [address] [place] [address] Appointment Request Social History Tobacco Use Types Packs/Day [...] risk 8 06/01/2023 Data from: https://www.neighborhoodatlas.medicine.[facility]/. Last address used for calculation [address] [facility] 06/01/2023 Comments No Sex and Gender [...] 06/22/2025 2:20 PM EDT Office Visit Rheumatology [address] [place] [address] Zulema Mclean MD [address] [facility] [address] [place] [address] 6 month follow up documented as of this encounter Visit Diagnoses Not on filedocumented in this encounter Care Teams Heavy Cleaner Relationship Specialty Start Date End Date Jesus Camacho MD [address] [place] [address] PCP - General Family Medicine 05/12/23 Jesus Camacho MD Referring Family Medicine 01/14/21 Jesus Camacho MD [address] [place] [address] Referring Family Medicine 05/12/23 documented as of this encounter
--- OUTSIDE RECORDS SUMMARY | 2025-04-24 08:33 | XMS_ITS | Encounter Summary ---
Author Organization [facility] Address [facility] [place] [address] Care Team Providers Care Director Data Management Name Role Phone Jesus Camacho MD Unavailable [phone] Jesus Camacho MD Unavailable [phone] Jesus Camacho MD Primary Care Provider [phone] Source Comments In the event this information is protected by the Federal Confidentiality of Alcohol and Drug AbusePatient Records regulations: The Federal rules restrict any use of the information to criminally investigate or prosecute any alcohol or drug abuse patient.[facility] Encounter Details Date Type Department Care Team (Late st Contact Info) Description 03/14/2024 Get Medical Advice [facility] [address] [place] [address] Jacky Pineda MD [address] [place] [address] Need to cancel Social History Tobacco Use Types Packs/Day Years [...] is lower risk 8 06/01/2023 Data from: https://www.neighborhoodatlas.medicine.[facility]/. Last address used for calculation [address] [facility] 06/01/2023 Comments No Sex and Gender [...] 06/22/2025 2:20 PM EDT Office Visit Rheumatology [address] [place] [address] Zulema Mclean MD [address] [facility] [address] [place] [address] 6 month follow up documented as of this encounter Visit Diagnoses Not on filedocumented in this encounter Care Teams Director Data Management Relationship Specialty Start Date End Date Jesus Camacho MD [address] [place] [address] PCP - General Family Medicine 05/12/23 Jesus Camacho MD Referring Family Medicine 01/14/21 Jesus Camacho MD [address] [place] [address] Referring Family Medicine 05/12/23 documented as of this encounter
--- OUTSIDE RECORDS SUMMARY | 2025-04-24 08:33 | XMS_ITS | Encounter Summary ---
Author Organization [facility] Address [facility] [place] [address] Care Team Providers Care Skidway Man Name Role Phone eJsus Camacho MD Unavailable [phone] Jesus Camacho MD Unavailable [phone] Jesus Camacho MD Primary Care Provider [phone] Source Comments In the event this information is protected by the Federal Confidentiality of Alcohol and Drug AbusePatient Records regulations: The Federal rules restrict any use of the information to criminally investigate or prosecute any alcohol or drug abuse patient.[facility] Encounter Details Date Type Department Care Team (Late st Contact Info) Description 01/31/2024 Get Medical Advice [facility] [address] [place] [address] Jacky Pineda MD [address] [place] [address] MRI Social History Tobacco Use [...] risk 8 06/01/2023 Data from: https://www.neighborhoodatlas.medicine.[facility]/. Last address used for calculation [address] [...] 06/22/2025 2:20 PM EDT Office Visit Rheumatology [address] [place] [address] Zulema Mclean MD [address] [facility] [address] [place] [address] 6 month follow up documented as of this encounter Visit Diagnoses Not on filedocumented in this encounter Care Teams Skidway Man Relationship Specialty Start Date End Date Jesus Camacho MD [address] [place] [address] PCP - General Family Medicine 05/12/23 Jesus Camacho MD Referring Family Medicine 01/14/21 Jesus Camacho MD [address] [place] [address] Referring Family Medicine 05/12/23 documented as of this encounter
--- OUTSIDE RECORDS SUMMARY | 2025-04-24 08:33 | XMS_ITS | Encounter Summary ---
Author Organization [facility] Address [address] [place] [address] Care Team Providers Care Fruit Vendor Name Role Phone Jesus Camacho MD Unavailable [phone] Jesus Camacho MD Unavailable [phone] Jesus Camacho MD Primary Care Provider [phone] Source Comments In the event this information is protected by the Federal Confidentiality of Alcohol and Drug AbusePatient Records regulations: The Federal rules restrict any use of the information to criminally investigate or prosecute any alcohol or drug abuse patient.[facility] Encounter Details Date Type Department Care Team (Late st Contact Info) Description 04/01/2025 Get Medical Advice [facility] [address] [place] [address] [id number] Jacky Pineda MD [address] [place] [address] Incision Social History Tobacco Use Types Packs/Day Years [...] is lower risk 8 06/01/2023 Data from: https://www.neighborhoodatlas.medicine.[facility]/. Last address used for calculation [address] [...] 06/22/2025 2:20 PM EDT Office Visit Rheumatology [address] [place] [address] Zulema Mclean MD [address] [facility] [address] [place] [address] 6 month follow up documented as of this encounter Visit Diagnoses Not on filedocumented in this encounter Care Teams Fruit Vendor Relationship Specialty Start Date End Date Jesus Camacho MD [address] [place] [address] PCP - General Family Medicine 05/12/23 Jesus Camacho MD Referring Family Medicine 01/14/21 Jesus Camacho MD [address] [place] [address] Referring Family Medicine 05/12/23 documented as of this encounter
--- OUTSIDE RECORDS SUMMARY | 2025-04-24 08:33 | XMS_ITS | Encounter Summary ---
Author Organization [facility] Address [address] [place] [address] Care Team Providers Care Transportation Maintenance Operator Name Role Phone Jesus Camacho MD Unavailable [phone] Jesus Camacho MD Unavailable [phone] Jesus Camacho MD Primary Care Provider [phone] Source Comments In the event this information is protected by the Federal Confidentiality of Alcohol and Drug AbusePatient Records regulations: The Federal rules restrict any use of the information to criminally investigate or prosecute any alcohol or drug abuse patient.[facility] Encounter Details Date Type Department Care Team (Late st Contact Info) Description 03/20/2025 Get Medical Advice [facility] [address] [id number] Jacky Pineda MD [address] [place] [address] Antibiotic Social History Tobacco Use Types Packs/Day Years [...] is lower risk 8 06/01/2023 Data from: https://www.neighborhoodatlas.medicine.[facility]/. Last address used for calculation [address] [...] 06/22/2025 2:20 PM EDT Office Visit Rheumatology [address] [place] [address] Zulema Mclean MD [address] [facility] [address] [place] [address] 6 month follow up documented as of this encounter Visit Diagnoses Not on filedocumented in this encounter Care Teams Transportation Maintenance Operator Relationship Specialty Start Date End Date Jesus Camacho MD [address] [place] [address] PCP - General Family Medicine 05/12/23 Jesus Camacho MD Referring Family Medicine 01/14/21 Jesus Camacho MD [address] [place] [address] Referring Family Medicine 05/12/23 documented as of this encounter
--- OUTSIDE RECORDS SUMMARY | 2025-04-24 08:33 | XMS_ITS | Encounter Summary ---
Author Organization [facility] Address [facility] [place] [address] Care Team Providers Care Plastic Molder Name Role Phone Jesus Camacho MD Unavailable [phone] Jesus Camacho MD Unavailable [phone] Jesus Camacho MD Primary Care Provider [phone] Source Comments In the event this information is protected by the Federal Confidentiality of Alcohol and Drug AbusePatient Records regulations: The Federal rules restrict any use of the information to criminally investigate or prosecute any alcohol or drug abuse patient.[facility] Encounter Details Date Type Department Care Team (Late st Contact Info) Description 03/13/2025 Results Follow-Up Rheumatology [address] [place] [address] Zulema Mclean MD [address] [facility] [address] [place] [address] Social History Tobacco Use Types Packs/Day Years [...] is lower risk 8 06/01/2023 Data from: https://www.neighborhoodatlas.medicine.[facility]/. Last [facility] for calculation [address] [facility] Comments No Sex and [...] 06/22/2025 2:20 PM EDT Office Visit Rheumatology [address] [place] [address] Zulema Mclean MD [address] [facility] [address] [place] [address] 6 month follow up documented as of this encounter Visit Diagnoses Not on filedocumented in this encounter Care Teams Plastic Molder Relationship Specialty Start Date End Date Jesus Camacho MD [address] [place] [address] PCP - General Family Medicine 05/12/23 Jesus Camacho MD Referring Family Medicine 01/14/21 Jesus Camacho MD [address] [place] [address] Referring Family Medicine 05/12/23 documented as of this encounter
--- OUTSIDE RECORDS SUMMARY | 2025-04-24 08:33 | XMS_ITS | Encounter Summary ---
Author Organization [facility] Address [address] [place] [address] Care Team Providers Care Tire Balancer Name Role Phone Jesus Camacho MD Unavailable [phone] Jesus Camacho MD Unavailable [phone] Jesus Camacho MD Primary Care Provider [phone] Source Comments In the event this information is protected by the Federal Confidentiality of Alcohol and Drug AbusePatient Records regulations: The Federal rules restrict any use of the information to criminally investigate or prosecute any alcohol or drug abuse patient.[facility] Encounter Details Date Type Department Care Team (Late st Contact Info) Description 03/08/2025 Get Medical Advice Neurology Headache [facility] [address] [place] [address] Rachele Fenton, MARILEE.REHABILITATION ASSISTANT [address] [place] [address] Nortriptalyne Social History Tobacco Use Types Packs/Day Years [...] is lower risk 8 06/01/2023 Data from: https://www.neighborhoodatlas.medicine.[facility]/. Last address used for calculation [address] 06/01/2023 Comments No Sex and Gender Information Value Date Recorded Sex Assigned at Female 02/25/2021 11:09 PM EDT Legal Sex Female 8:01 AM EST Gender Identity Female 02/25/2021 11:09 PM EDT Sexual Orientation Straight 02/25/2021 11 :09 PM EDT documented as of this encounter Miscellaneous Notes * Telephone Encounter - Tala Summers - 03/14/2025 9:59 AM EDT Patient last seen on 01/06/25 documented in this encounter Plan of Treatment Upcoming Encounters Date Type Department Care Team (Late st Contact Info) Description 06/22/2025 2:20 PM EDT Office Visit Rheumatology [address] [place] [address] Zulema Mclean MD [address] [place] [address] 6 month follow up documented as of this encounter Visit Diagnoses Not on filedocumented in this encounter Care Teams Tire Balancer Relationship Specialty Start Date End Date Jesus Camacho MD [address] [place] [address] PCP - General Family Medicine 05/12/23 Jesus Camacho MD Referring Family Medicine 01/14/21 Jesus Camacho MD [address] [place] [address] Referring Family Medicine 05/12/23 documented as of this encounter
--- OUTSIDE RECORDS SUMMARY | 2025-04-24 08:33 | XMS_ITS | Encounter Summary ---
Author Organization [facility] Address [facility] [place] [address] Care Team Providers Care Cartography Technician Name Role Phone Jesus Camacho MD Unavailable [phone] Jesus Camacho MD Unavailable [phone] Jesus Camacho MD Primary Care Provider [phone] Source Comments In the event this information is protected by the Federal Confidentiality of Alcohol and Drug AbusePatient Records regulations: The Federal rules restrict any use of the information to criminally investigate or prosecute any alcohol or drug abuse patient.[facility] Encounter Details Date Type Department Care Team (Late st Contact Info) Description 02/07/2024 Get Medical Advice [facility] [address] [place] [address] Jacky Pineda MD [address] [place] [address] Appointments Social History Tobacco Use Types Packs/Day Years [...] is lower risk 8 06/01/2023 Data from: https://www.neighborhoodatlas.medicine.[facility]/. Last address used for calculation [address] [...] 06/22/2025 2:20 PM EDT Office Visit Rheumatology [address] [place] [address] Zulema Mclean MD [address] [facility] [address] [place] [address] 6 month follow up documented as of this encounter Visit Diagnoses Not on filedocumented in this encounter Care Teams Cartography Technician Relationship Specialty Start Date End Date Jesus Camacho MD [address] [place] [address] PCP - General Family Medicine 05/12/23 Jesus Camacho MD Referring Family Medicine 01/14/21 Jesus Camacho MD [address] [place] [address] Referring Family Medicine 05/12/23 documented as of this encounter
--- OUTSIDE RECORDS SUMMARY | 2025-04-24 08:33 | XMS_ITS | Encounter Summary ---
Author Organization [facility] Address [address] [place] [address] Care Team Providers Care Autocad Name Role Phone Jesus Camacho MD Unavailable [phone] Jesus Camacho MD Unavailable [phone] Jesus Camacho MD Primary Care Provider [phone] Source Comments In the event this information is protected by the Federal Confidentiality of Alcohol and Drug AbusePatient Records regulations: The Federal rules restrict any use of the information to criminally investigate or prosecute any alcohol or drug abuse patient.[facility] Encounter Details Date Type Department Care Team (Late st Contact Info) Description 02/27/2025 Patient Msg Neurology [address] [place] [address] Lisa Box, VENUS Social History Tobacco Use Types Packs/Day Years [...] is lower risk 8 06/01/2023 Data from: https://www.neighborhoodatlas.medicine.[facility]/. Last address used for calculation [address] [...] 06/22/2025 2:20 PM EDT Office Visit Rheumatology [address] [place] [address] Zulema Mclean MD [address] [facility] [address] [place] [address] 6 month follow up documented as of this encounter Visit Diagnoses Not on filedocumented in this encounter Care Teams Autocad Relationship Specialty Start Date End Date Jesus Camacho MD [address] [place] [address] PCP - General Family Medicine 05/12/23 Jesus Camacho MD Referring Family Medicine 01/14/21 Jesus Camacho MD [address] [place] [address] Referring Family Medicine 05/12/23 documented as of this encounter
--- OUTSIDE RECORDS SUMMARY | 2025-04-24 08:33 | XMS_ITS | Clinical Summary ---
Author Organization [facility] Address [address] [place], [place] [id number] Care Team Providers Care Apparel Merchandiser Name Role Phone Jesus Camacho MD Unavailable [phone] Jesus Camacho MD Unavailable [phone] Jesus Camacho MD Primary Care Provider [phone] Allergies No known active allergies Medications benzonatate (TESSALON PERLES ORAL) Active budesonide (PULMICORT) 1 mg/2 mL nebulizer solution INHALE 1 (ONE) vial via NEBULIZER ONCE DAILY 02/10/20 21 Active dapagliflozin (FARXIGA) 5 mg tablet Active DEXILANT 60 mg CpDM Take 1 capsule by mouth twice daily. 02/17/20 21 Active doxepin capsule 10 mg Active glycopyrrolate (ROBINUL) 1 mg tablet Take 2 mg by mouth twice daily. 02/17/20 21 Active ipratropium-albut roney (DUONEB) 0.5 mg-3 mg(2.5 mg base)/3 mL nebu Acti ve lamoTRIgine (LAMICTAL) 200 mg tablet TAKE 3 TABLETS EVERY DAY 02/17/20 21 Active AMITIZA 24 mcg capsule Take 24 mcg by mouth twice daily. 02/17/20 21 Active metFORMIN (GLUCOPHAGE) 500 mg tablet Active pioglitazone (ACTOS) 15 mg tablet Active simvastatin (ZOCOR) 20 mg tablet Take 20 mg by mouth once daily. 02/17/20 21 Active levothyroxine (SYNTHROID) 50 mcg tablet Take 50 mcg by mouth daily before breakfast. Active hydrOXYchloroQUIN E (PLAQUENIL) 200 mg tablet Take 1 tablet by mouth two times a day. 60 tablet 6 05/30/20 24 Active DULoxetine (CYMBALTA) 30 mg capsuleIndication s:Fibromyalgia Take one tab along with the 60mg tab to equal 90mg po qd 30 capsule 6 10/10/19 25 Active ondansetron orally disintegrating (ZOFRAN ODT) 4 mg disintegrating tablet Take 4 mg by mouth every 8 hours as needed. 10/02/19 22 Active medroxyPROGESTERo ne (DEPO-PROVERA) 150 mg/mL injection Inject 150 mg intramuscularly every 12 weeks. Active mirabegron (MYRBETRIQ) 50 mg Tb24 Take 50 mg by mouth once daily. Active acetaminophen (TYLENOL) 325 mg tablet 2 tablets by ORAL/FEEDING TUBE route every 4 hours as needed for pain. 02/24/20 25 Active senna-docusate (SENNA-S) 8.6-50 mg per tablet Take 1 tablet by mouth two times a day as needed for constipation. 100 tablet 10:55 AM EDT 02/23/20 25 Active etodolac (LODINE) 400 mg tabletIndications :Inflammatory arthritis TAKE 1 TABLET BY MOUTH TWICE A DAY NEEDED 60 tablet 3 02/28/20 25 Active predniSONE (DELTASONE) 5 mg tabletIndications :Inflammatory arthritis TAKE 1 TO 2 TABLETS BY MOUTH EVERY DAY 60 tablet 3 02/28/20 25 Active DULoxetine (CYMBALTA) 60 mg capsuleIndication s:Fibromyalgia TAKE 1 CAPSULE BY MOUTH EVERY DAY 90 capsule 2 03/06/20 25 Active methocarbamol (ROBAXIN) 500 mg tabletIndications :Chronic daily headache TAKE 1 TABLET BY MOUTH TWICE A DAY NEEDED 45 tablet 2 03/13/20 25 Active nortriptyline (PAMELOR) 10 mg capsuleIndication s:Chronic daily headache Take 1 capsule by mouth daily at bedtime. 30 capsule 3 03/13/20 25 Active sulfamethoxazole- trimethoprim (BACTRIM DS) 800-160 mg per tablet Take 1 tablet by mouth two times a day for 5 days. 10 tablet 03/20/20 25 2024 Active Problems Problem Noted Date Diagnosed Date Dizziness and giddiness 03/29/2025 Meningioma 02/20/2025 Assessment & Plan (02/21/2025 12:31 PM EDT): 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 Evaluating with posotp MRI Pain control: ATC APAP x48h, robaxin Mobilize, OOB for meals MAREK (obstructive sleep apnea) 02/14/2025 Assessment & Plan (02/21/2025 12:36 PM EDT): Monitoring pulse ox Not on home CPAP Assessment & Plan (02/14/2025 8:02 AM EDT): Assessment: Does not use CPAP GERD (gastroesophageal reflux disease) Assessment & Plan (02/21/2025 12:35 PM EDT): Treating with PPI Assessment & Plan (02/14/2025 8:03 AM EDT): Assessment: Controlled with dexilant Hypothyroidism 02/14/2025 Assessment & Plan (02/21/2025 12:34 PM EDT): Treating with home synthroid 50mcg qday Assessment & Plan (02/14/2025 8:03 AM EDT): Assessment: Controlled with levothyroxine Class 3 severe obesity due t o excess calories with serious comorbidity and body mass index (BMI) of 40.0 to 44.9 in adult 02/14/2025 Assessment & Plan (02/21/2025 12:36 PM EDT): [facility] nutrition education Assessment & Plan (02/14/2025 8:19 AM EDT): Assessment: Body mass index is 40.98 kg/m . Inflammatory arthritis 02/14/2025 Assessment & Plan (02/14/2025 8:21 AM EDT): Assessment: Stable ON Plaquenil and prednisone as needed Follows with Dr. Villegas Rheumatology Intracranial meningioma 06/01/2023 Chronic tension-type headache, intractable 06/01 Anxiety Assessment & Plan (02/21/2025 12:36 PM EDT): Treating with home Rx Assessment & Plan (02/14/2025 8:19 AM EDT): Assessment: Controlled with Lamictal COPD (chronic obstructive pulmonary disease) Assessment & Plan (02/21/2025 12:31 PM EDT): Monitoring pulse ox Treating with home inhalers Assessment & Plan (02/14/2025 8:01 AM EDT): Assessment: Stable with nebulizer treatments Denies any SOB Denies any Home oxygen use Lungs clear on exam SpO2 in office today 96% Monitored by PCP Diabetes mellitus Assessment & Plan (02/21/2025 12:33 PM EDT): Monitoring POC glucose Treating with home farziga 5mg qday, actos 15mg qday, resume metformin 500mg qday POD2 2/2 MRI contrast CCD, SSI Assessment & Plan (02/14/2025 8:18 AM EDT): Assessment: Complaint with oral medications -A1C ordered today Instructions provided to patient on how long to hold diabetic medications prior to procedure Mixed hyperlipidemia Assessment & Plan (02/21/2025 12:34 PM EDT): Treating with home statin Assessment & Plan (02/14/2025 8:02 AM EDT): Assessment: Compliant with Statin Fibromyalgia Assessment & Plan (02/21/2025 12:34 PM EDT): Treating with home Rx Assessment & Plan (02/14/2025 8:00 AM EDT): Assessment: Controlled with Cymbalta Monitored by [facility] rheumatology Resolved Problems Problem Noted Date Diagnosed Date Resolved Date Post-op pain 02/22/2025 03/29/2025 Cerebral edema 02/21/2025 03/29/2025 Assessment & Plan (02/21/2025 12:37 PM EDT): Clinically significant cerebral edema treating with decadron 8bid (SSI, PPI) 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 off over 1 week At risk for seizures 02/21/2025 025 Assessment & Plan (02/21/2025 12:38 PM EDT): Treating with periop keppra x 1 week Neoplasm causing mass effect and brain compression on adjacent structures 02/21/202503/29 Assessment & Plan (02/21/2025 12:39 PM EDT): R/t meningioma, noted on preop MRI See meningioma POC Depression 02/14/2025 Encounters Date Type Department Care Team Description 04/12/2025 7:00 AM EDT [facility] [address] [place] [address] Rachele Fenton, CASING MAN.HOSPITAL DIRECTOR Meningioma (HCC) (Primary Dx); Chronic daily headache 04/01/2025 Get Medical Advice [facility] [place] [address] Erik Pineda MD Incision 03/29/2025 10:30 AM EDT [facility] [address] [place], [place] [id number] Erik Pineda MD Intracranial meningioma (HCC) (Primary Dx); Postprocedural state; Dizziness and giddiness 03/26/2025 Get Medical Advice [facility] [address] [address] Erik Pineda MD Incision 03/20/2025 Get Medical Advice [facility] [address] [address] Erik Pineda MD Antibiotic 03/20/2025 Refill [facility] [address] [place], [place] [id number] Donna Patton MD Refill Request 03/19/2025 Get Medical Advice [facility] [place] [address] Erik Pineda MD Incision picture 03/15/2025 12:00 [place] [address] S/P craniotomy (Primary Dx) 03/15/2025 Refill [facility] [address] [id number] Donna Patton MD Refill Request 03/15/2025 Travel 03/13/2025 Results Follow-Up Rheumatology [id number] [place] [address] Zulema Mclean MD 03/12/2025 Refill Neurology Headache [facility] [address] [place] [address] Rachele Fenton, CASING MAN.HOSPITAL DIRECTOR Refill Request 03/08/2025 Telephone [place] [id number] Shakila Phillips RN Surgical Followup 03/08/2025 Get Medical Advice Neurology Headache [facility] [address] [place] [address] Rachele Fenton, CASING MAN.HOSPITAL DIRECTOR Nortriptalyne 03/06/2025 10:30 AM EDT Nurse Visit [facility] Tumor [place] [phone] Shakila Phillips, VENUS S/P craniotomy (Primary Dx); Intracranial meningioma (HCC); Postop check 03/06/2025 Refill Rheumatology [address] [place] [address] Zulema Mclean MD Refill Request 03/02/2025 1:00 PM EDT [facility] [address] [place] [address] Heather Moy, CASING MAN.HOSPITAL DIRECTOR Benign neoplasm of meninges (HCC) (Primary Dx) 02/27/2025 Patient Msg Neurology [address] [place] [address] Lisa Box RN 02/24/2025 Refill Rheumatology [address] [place] [address] Zulema Mclean MD Refill Request 02/23/2025 Telephone [place] [phone] Shakila Phillips RN Surgical Followup 02/20/2025 12:45 PM EDT - 02/20/2025 6:45 PM EDT Surgery Admitting [facility] [place] [address] Erik Pineda MD CRANIECTOMY, TREPHINATION, BONE FLAP CRANIOTOMY / EXCISE SUPRATENTORIAL MENINGIOMA 02/20/2025 12:21 PM EDT Anesthesia Event Admitting [facility] [place] [address] Zara Ramachandran DO 02/20/2025 11:00 AM EDT - 02/22/2025 3:53 PM EDT Hospital Encounter HOSP MAIN H060 [address] [place] [address] Erik Pineda MD Intracranial meningioma (HCC) [D32.0], Preop testing [Z01.818] Discharge Disposition: Home 02/20/2025 Travel 02/17/2025 Telephone [facility] [phone] [place] [address] Shakila Phillips RN PreOp Call 02/15/2025 2:30 PM EDT [facility] Tumor [place] [id number] [place] [address] Erik Pineda MD Intracranial meningioma (HCC) (Primary Dx) 02/15/2025 Get Medical Advice [facility] [place] [phone] [place] [address] Erik Pineda MD Consent 02/15/2025 Telephone Pre Anesthesia [address] [place] [address] Marli Martin APRN.HOSPITAL DIRECTOR Patient Update 02/14/2025 8:46 AM EDT - 02/14/2025 11:59 PM EDT Hospital Encounter Radiology [address] [place] [address] Intracranial meningioma (HCC) [D32.0] Discharge Disposition: Home 02/14/2025 7:40 AM EDT PAT Pre Anesthesia [address] [place] [address] 2, [facility] [place] Pre-op evaluation (Primary Dx); Anxiety; Chronic obstructive pulmonary disease, unspecified COPD type (HCC); Depression, unspecified depression type; Type 2 diabetes mellitus without complication, without long-term current use of insulin (HCC); Mixed hyperlipidemia; Fibromyalgia; Intracranial meningioma (HCC); Preop testing; MAREK (obstructive sleep apnea); Gastroesophageal reflux disease, unspecified whether esophagitis present; Hypothyroidism, unspecified type; Class 3 severe obesity due to excess calories with serious comorbidity and body mass index (BMI) of 40.0 to 44.9 in adult (HCC); Inflammatory arthritis 02/14/2025 Travel 02/07/2025 Travel 01/23/2025 Refill Neurology Headache [facility] [address] [place] [address] Rachele Fenton, MARILEE.HOSPITAL DIRECTOR Med Change Request from Last 3 Months Family History Medical History Relation Comments Seizures Brother Relation Status Comments Brother Alive Mother Alive Son 1 Alive Son 2 Alive Social History Tobacco Use Types Packs/Day Years Used Date Smoking Tobacco: Former Smokeless Tobacco: Never Tobacco Cessation:Counseling Given: Not Answered Comments:Started 1994. Quit 2009. 1 ppd Alcohol [...] is lower risk 8 06/01/2023 Data from: https://www.neighborhoodatlas.medicine.[facility].edu/. Last address used for calculation [address] 06/01/2023 Comments No Sex and Gender Information Value Date Recorded Sex Assigned at Female 02/25/2021 11:09 PM EDT Legal Sex Female 8:01 AM EST Gender Identity Female 02/25/2021 11:09 PM EDT Sexual Orientation Straight 02/25/2021 11 :09 PM EDT Last Filed Vital Signs Vital Sign Reading Time Taken Comments Blood Pressure 156/79 03/15/2025 12:03 PM EDT notified Pulse 82 03/15/2025 12:03 PM EDT Temperature 37.3 C (99.2 F) 03/06/2025 10:11 AM EDT Respiratory Rate 18 03/15/2025 12:0 3 PM EDT Oxygen Saturation 99% 03/15/2025 12: 03 PM EDT Inhaled Oxygen Concentration - - Weight 111.3 kg (245 lb 6 oz) 12:03 PM EDT with shoes Height 165.1 cm (5' 5 ) 02/21/2025 5:00 PM EDT Body Mass Index 40.83 02/21/2025 5:00 PM EDT Plan of Treatment Upcoming Encounters Date Type Department Care Team (Late st Contact Info) Description 06/22/2025 2:20 PM EDT Office Visit Rheumatology [address] [place] [address] Zulema Mclean MD [address] [facility] [address] [place] [address] 6 month follow up Health Maintenance Due Date Last Done Comments Diabetic Foot Exam 1987 Dilated Retinal Exam 1987 Urine Albumin:Creatinine Ratio 1987 Annual PCP Team Chronic Dise ase Visit 1995 Depression Screening 1995 LDL Cholesterol 1995 Hepatitis B Vaccine (1 of 3 - 19+ 3-dose series) 1996 Pneumococcal Vaccine (1 of 2 - PCV) 1996 Cervical Cancer Screening 1998 Mammogram Screening 2017 DTaP,Tdap,Td Vaccine (1 - Tdap) 07/04/2021 CT Colonography 2022 Cologuard (FIT-DNA) 2022 Colonoscopy 2022 Colorectal Cancer Screening 2022 Fecal Occult Blood 2022 Sigmoidoscopy 2022 Medicare Advantage Annual We llness Visit 09/14/2024 Influenza Vaccine (#1) 2025 , 06/18/2022, 07/12/2021, Additional history exists HbA1C 08/17/2025 02/15/2025 HIV Screening Completed 01/05/2006 Hepatitis C Screening Completed 03/04/2021, 006 Medical Devices Implanted Type Area Advertising Executive Device Identifier Shelf Expiration Date Model / Serial / Lot Patch Duramatrix-Onla y Plus Collagen 2x2in Dural Regeneration Membrane - [id number] Implanted:Qty: 1 on 02/20/2025 by Erik Pineda MD at [facility] Patch Right: Head - Cranial JAYNE NEUR 01/11/2027 [id number] / / [id number] Plate Bone 8 Hole Profile - [id number] Implanted:Qty: 1 on 02/20/2025 at [facility] Plate Right: Head - Cranial STRY-HOWM CRANIOMAXILLOFACIAL [id number] / / Plate 3d Large Box Low Profile Titanium Bone 2x2 Hole 1.5mm Screw - [id number] Implanted:Qty: 1 on 02/20/2025 at [facility] Plate Right: Head - Cranial STRY-HOWM CRANIOMAXILLOFACIAL [id number] / / Plate Low Profile Titanium 12mm Bone 2 Hole Bar 1.5mm Screw Nonsterile - [id number] Implanted:Qty: 2 on 02/20/2025 at [facility] Plate Right: Head - Cranial STRY-HOWM CRANIOMAXILLOFACIAL [id number] / / Cover 10mm Medium Titanium Aline Hole Low Profile Tab 1.5mm Screws - [id number] Implanted:Qty: 1 on 02/20/2025 at [facility] Plate Right: Head - Cranial STRY-HOWM CRANIOMAXILLOFACIAL [id number] / / Screw Bone [place] [employer] 3 4mm 1.5mm Self Drill Axial Stability Latex - [id number] Implanted:Qty: 11 on 02/20/2025 at [facility] Screw Right: Head - Cranial STRY-HOWM CRANIOMAXILLOFACIAL [id number] / / [place] [employer] Axs Neuro Screw Disc Pre-Loaded 1.5mm X 4mm Implanted:Qty: 17 on 02/20/2025 at [facility] Screw Right: Head - Cranial JAYNE [id number] / / Procedures Procedure Name Priority Date/Time Associated Diagnosis Comments GLUCOSE, BLOOD (POC) Routine 02/22/2025 11:41 AM EDT GLUCOSE, BLOOD (POC) Routine 02/22/2025 7:26 AM EDT GLUCOSE, BLOOD (POC) Routine 02/21/2025 8:14 PM EDT GLUCOSE, BLOOD (POC) Routine 02/21/2025 4:32 PM EDT GLUCOSE, BLOOD (POC) Routine 02/21/2025 12:08 PM EDT MRI BRAIN WO/W IVCON SALIMA 02/21/2025 11:17 AM EDT GLUCOSE, BLOOD (POC) Routine 02/21/2025 5:50 AM EDT CBC + DIFF Routine 02/21/2025 4:37 AM EDT BASIC METABOLIC PANEL Routine 02/21/2025 4:37 AM EDT GLUCOSE, BLOOD (POC) Routine 02/20/2025 11:36 PM EDT GLUCOSE, BLOOD (POC) Routine 02/20/2025 8:30 PM EDT GLUCOSE, BLOOD (POC) Routine 02/20/2025 4:48 PM EDT GASA + ALL + MG STAT 02/20/2025 3:51 PM EDT SURGICAL PATHOLOGY Routine 02/20/2025 3: 13 PM EDT Intracranial meningioma (HCC) Preop testing GASA + ALL + MG STAT 02/20/2025 1:28 PM EDT ARTL CATHJ/CANNULJ MNTR/TRANSFUSION SPX PRQ Routine 02/20/2025 12:47 PM EDT INTUBATION Routine 02/20/2025 12:43 PM EDT STRTCTC CPTR ASSTD PX CRANIAL INTRADURAL 02/20/2025 12:05 PM EDT Intracranial meningioma (HCC) Preop testing CRNEC TREPHINE BONE FLAP MENINGIOMA SUPRATENTOR 02/20/2025 12:05 PM EDT Intracranial meningioma (HCC) Preop testing BASIC METABOLIC PANEL STAT 02/20/2025 11:43 AM EDT GLUCOSE, BLOOD (POC) Routine 02/20/2025 11:40 AM EDT CONFIRM BLOOD TYPE Routine 02/15/2025 12 :56 PM EDT Pre-op evaluation HEMOGLOBIN A1C Routine 02/15/2025 12:56 PM EDT Pre-op evaluation Type 2 diabetes mellitus without complication, without long-term current use of insulin (HCC) MRI BRAIN WO/W IVCON Routine 02/14/2025 10:37 AM EDT Intracranial meningioma (HCC) Preop testing TYPE + SCREEN,30 DAY Routine 02/14/2025 8:19 AM EDT Intracranial meningioma (HCC) Preop testing STAPHYLOCOCCUS AUREUS & MRSA SCREEN, PCR, NASAL Routine 02/14/2025 8:19 AM EDT Intracranial meningioma (HCC) Preop testing C-REACTIVE PROTEIN (CRP) Routine 02/14/2025 8:19 AM EDT Inflammatory arthritis SED RATE WESTERGREN Routine 02/14/2025 8 :19 AM EDT Inflammatory arthritis COMPLETE BLOOD COUNT Routine 02/14/2025 8:19 AM EDT Inflammatory arthritis ALT/SGPT Routine 02/14/2025 8:19 AM EDT Inflammatory arthritis AST/SGOT BLD Routine 02/14/2025 8:19 AM EDT Inflammatory arthritis ECG COMPLETE 02/14/2025 7:00 AM EDT ECG COMPLETE 02/14/2025 7:00 AM EDT *HEP C AB Routine 03/04/2021 1:39 PM EDT Pain in joint, multiple sites HIV 1/2 COMBO WITH REFLEX TO DIFFERENTIATION 01/05/2006 3:17 PM EDT from Last 3 Months or Most Recently Relevant to Health Maintenance Results * (ABNORMAL) GLUCOSE, BLOOD (POC) (02/22/2025 11:41 AM EDT) Only the most recent of10 resultswithin the time period is included. [facility] Glucose, Point of Care 145(A) 74 - 99 mg/dL [facility] Comment: Location:[facility], [address] [place] [address], [facility] The Accu-Chek Inform II glucose meter has not been approved for testing on patients receiving intensive medical intervention or therapy and results from this point of care glucose test should not be used for patient management decisions in these cases. Inaccurate results may also occur from other interfering factors, such as N-acetylcysteine (blood concentrations of greater than 5mg/dL), galactose, extremes of hematocrit (<10 or >65), or high doses of ascorbic acid (vitamin C) greater than 3mg/dL. Consider alternate testing mechanisms (e.g. core lab, blood gas instrument) in the above situations. 02/22/2025 11:4 1 AM EDT us Erik Pineda MD POC TESTING Final Result [facility] POINT OF CARE [address] * MRI BRAIN WO/W IVCON (02/21/2025 11:17 AM EDT) Anatomical Region Laterality Modality Head Magnetic Resonan ce 02/21/2025 11:1 7 AM EDT Impressions 02/21/2025 12:00 PM EDT IMPRESSION: Expected postoperative changes from right sphenoid wing and middle cranial fossa mass resection. No residual mass or pathologic enhancement. Glassware Maker Demonstrator: GUANACO Transcribe Date/Time: Feb 21 2025 11:17A Dictated by : CHIKA RUBY MD This examination was interpreted and the report reviewed and electronically signed by: TOMAS AMADOR MD on Feb 21 2025 11:58AM EST Narrative 02/21/2025 12:00 PM EDT * * *Final Report* * * DATE OF EXAM: Feb 21 2025 11:17AM QBM [id number] - MRI BRAIN WO/W IVCON / PROCEDURE REASON: Brain/CHECKER LOADER neoplasm, monitor * * * * Physician Interpretation * * * * EXAMINATION: MRI BRAIN WO/W IVCON HISTORY: Status post mass resection TECHNIQUE: Routine brain MRI protocol without and with contrast including diffusion images. MQ: [id number] Contrast: 10 mL Elucirem IV COMPARISON: MR brain 02/14/2025; MR skull base 01/29/2024 RESULT: Postprocedural Change: Right pterional craniotomy/mesh cranioplasty of the sphenoid wing with subjacent 4 mm extra-axial collection, predominantly overlying the right frontal lobe. Large overlying right frontoparietal scalp simple fluid collection. Acute Change: Cytotoxic edema in the right anterior temporal lobe adjacent to the resected mass. Hemorrhage: Products along the scalp and craniotomy/craniectomy defect. Mass Lesion / Mass Effect: No intracranial mass or pathologic parenchymal enhancement. No pathologic leptomeningeal enhancement. No midline shift. Chronic Change: None. Parenchyma: No volume loss for age. Ventricles: Normal size and configuration for age. Skull Base: Grossly normal pituitary region. Unremarkable craniocervical junction. No marrow replacing process. Vasculature: Patent major intracranial arterial structures and dural venous sinuses. Other: Grossly clear imaged paranasal sinuses. Clear mastoid air cells. Unremarkable orbits. Procedure Note Provider, [facility] [place] - 02/21/2025 * * *Final Report* * * DATE OF EXAM: Feb 21 2025 11:17AM QBM [id number] - MRI BRAIN WO/W IVCON / PROCEDURE REASON: Brain/CHECKER LOADER neoplasm, monitor * * * * Physician Interpretation * * * * EXAMINATION: MRI BRAIN WO/W IVCON HISTORY: Status post mass resection TECHNIQUE: Routine brain MRI protocol without and with contrast including diffusion images. MQ: [id number] Contrast: 10 mL Elucirem IV COMPARISON: MR brain 02/14/2025; MR skull base 01/29/2024 RESULT: Postprocedural Change: Right pterional craniotomy/mesh cranioplasty of the sphenoid wing with subjacent 4 mm extra-axial collection, predominantly overlying the right frontal lobe. Large overlying right frontoparietal scalp simple fluid collection. Acute Change: Cytotoxic edema in the right anterior temporal lobe adjacent to the resected mass. Hemorrhage: Products along the scalp and craniotomy/craniectomy defect. Mass Lesion / Mass Effect: No intracranial mass or pathologic parenchymal enhancement. No pathologic leptomeningeal enhancement. No midlineshift. Chronic Change: None. Parenchyma: No volume loss for age. Ventricles: Normal size and configuration for age. Skull Base: Grossly normal pituitary region. Unremarkable craniocervical junction. No marrow replacing process. Vasculature: Patent major intracranial arterial structures and dural venous sinuses. Other: Grossly clear imaged paranasal sinuses. Clear mastoid air cells. Unremarkable orbits. IMPRESSION IMPRESSION: Expected postoperative changes from right sphenoid wing and middle cranial fossa mass resection. No residual mass or pathologicenhancement. Glassware Maker Demonstrator: PSCB Transcribe Date/Time: Feb 21 2025 11:17A Dictated by : CHIKA RUBY MD This examination was interpreted and the report reviewed and electronically signed by: TOMAS AMADOR MD on Feb 21 2025 11:58AM EST us Erik Pineda MD MRI-[facility] Final Result * (ABNORMAL) COMPLETE BLOOD COUNT AND DIFFERENTIAL (02/21/2025 4:37 AM EDT) WBC 12.82(H) 3.70 - 11.00 k/uL 02/21/2025 5:11 AM EDT [facility] RBC 3.77(L) 3.90 - 5.20 m/uL 02/21/2025 5:11 AM EDT [facility] Hemoglobin 11.2(L) 11.5 - 15.5 g/dL 02/21/2025 5:11 AM EDT [facility] Hematocrit 34.6(L) 36.0 - 46.0 % 02/21/2025 5:11 AM EDT [facility] MCV 91.8 80.0 - 100.0 fL 02/21/2025 5:11 AM EDT [facility] MCH 29.7 26.0 - 34.0 pg 02/21/2025 5:11 AM EDT [facility] MCHC 32.4 30.5 - 36.0 g/dL 02/21/2025 5:11 AM EDT [facility] RDW-CV 13.2 11.5 - 15.0 % 02/21/2025 [facility] Plate[facility] Count 309 150 - 400 k/uL 02/21/2025 5:11 AM T [facility] MPV 10.5 9.0 - 12.7 fL 02/21/2025 5:11 AM EDT [facility] Neutrophils % 85.4 % 02/21/2025 5:11 AM [facility] Abs Neut 10.95(H) 1.45 - 7.50 k/uL 02/21/2025 5:11 AM EDT [facility] Lymphocytes % 6.8 % 02/21/2025 5:11 AM T [facility] Abs Lymph 0.87(L) 1.00 - 4.00 k/uL 02/21/2025 5:11 AM EDT [facility] Monocytes % 7.3 % 02/21/2025 5:11 AM EDT [facility] [facility] Abs Lucas 0.94(H) <0.87 k/uL 02/21/2025 5:11 AM EDT [facility] Eosinophils % 0.0 % 02/21/2025 5:11 AM EDT [facility] Abs Eosin <0.03 <0.46 k/uL 02/21/2025 5:11 AM EDT [facility] Basophils % 0.1 % 02/21/2025 5:11 AM EDT [facility] Abs Baso <0.03 <0.11 k/uL 02/21/2025 5:11 AM EDT [facility] Immature Granulocytes % 0.4 % 02/21/2025 5:11 AM EDT [facility] Abs Immature Gran 0.05 <0.10 k/uL 02/21/2025 5:11 AM EDT [facility] NRBC 0.0 /100 WBC 02/21/2025 5:11 AM EDT [facility] Absolute nRBC <0.01 <0.01 k/uL 02/21/2025 5:11 AM EDT [facility] Diff Type Auto 02/21/2025 5:11 AM EDT [facility] Blood BLOOD SPECIMEN / Unknown Venipuncture / Unknown 02/21/2025 4:37 AM EDT 02/21/2025 4:44 AM EDT us Erik Pineda MD LABORATORY Final Result [facility] [address] * (ABNORMAL) BASIC METABOLIC PANEL (02/21/2025 4:37 AM EDT) Only the most recent of2 resultswithin the time period is included. Glucose 131(H) 74 - 99 mg/dL 02/21/2025 5:17 AM EDT [facility] Comment: The [place] [employer] (ADA) provides guidance for cutoff values for fasting glucose and random glucose. The ADA defines fasting as no caloric intake for at least 8 hours. Fasting plasma glucose results between 100 to 125 mg/dL indicate increased risk for diabetes (prediabetes). Fasting plasma glucose results greater than or equal to 126 mg/dL meet the criteria for diagnosis of diabetes. In the absence of unequivocal hyperglycemia, results should be confirmed by repeat testing. In a patient with classic symptoms of hyperglycemia or hyperglycemic crisis, random plasma glucose results greater than or equal to 200 mg/dL meet the criteria for diagnosis of diabetes. Reference: Standards of Medical Care in Diabetes 2016, [place] [employer]. Diabetes Care. 2016.39(Suppl 1). BUN 8 7 - 21 mg/dL 02/21/2025 5:17 AM EDT [facility] Creatinine 0.75 0.58 - 0.96 mg/dL 02/21/2025 5:17 AM EDT [facility] Sodium 138 136 - 144 mmol/L 02/21/2025 5:17 AM EDT [facility] Potassium 4.2 3.7 - 5.1 mmol/L 02/21/2025 5:17 AM EDT [facility] Chloride 105 98 - 107 mmol/L 02/21/2025 5:17 AM EDT [facility] CO2 20(L) 22 - 30 mmol/L 02/21/2025 5:17 AM EDT [facility] Anion Gap 13 8 - 15 mmol/L 02/21/2025 5:17 AM EDT [facility] Calcium, Total 8.8 8.5 - 10.2 mg/dL 02/21/2025 5:17 AM EDT [facility] Estimated Glomerular Filtration Rate 99 >=60 mL/min/1.7 3m 02/21/2025 5:17 AM EDT [facility] Comment:Estimated Glomerular Filtration Rate (eGFR) is calculated using the 2020 CKD-EPI creatinine equation. This equation utilizes serum creatinine, sex, and age as parameters. The creatinine assay has traceable calibration to isotope dilution- mass spectrometry. Refer to KDIGO guidelines for clinical interpretation. In patients with unstable renal function, e.g. those with acute kidney injury, the eGFR may not accurately reflect actual GFR. Blood BLOOD SPECIMEN / Unknown Venipuncture / Unknown 02/21/2025 4:37 AM EDT 02/21/2025 4:44 AM EDT us Erik Pineda MD LABORATORY Final Result [facility] [address] [place] [address], * (ABNORMAL) ARTERIAL BLOOD GASES WITH IONIZED MAGNESIUM (02/20/2025 3:51 PM EDT) Only the most recent of2 resultswithin the time period is included. pH, Arterial 7.41 7.35 - 7.45 02/20/2025 4:02 PM [facility] pH, Temp Corrected, Arterial 7.41 7.35 - 7.45 02/20/2025 4:02 PM [facility] pCO2, Arterial 33(L) 36 - 46 mm Hg 02/20/2025 4:02 PM [facility] pCO2, Temp Corrected, Arterial 33(L) 36 - 46 mmHg 02/20/2025 4:02 PM [facility] pO2, Arterial 208(H) 85 - 95 mm Hg 02/20/2025 4:02 PM [facility] pO2, Temp Corrected, Arterial 208(H) 85 - 95 mmHg 02/20/2025 4:02 PM [facility] Bicarbonate, Arterial 20(L) 22 - 26 mmol/L 02/20/2025 4:02 PM [facility] O2 Saturation, Arterial 98 95 - 98 % 02/20/2025 4:02 PM [facility] Base Deficit, Arterial -4(L) -2 - 0 mmol/L 02/20/2025 4:02 PM [facility] Oxyhemoglobin, Arterial 96 95 - 98 % 02/20/2025 4:02 PM [facility] Carboxyhemoglo bin, Arterial 0.6 0.0 - 2.0 % 02/20/2025 4:02 PM [facility] Comment:Carboxyhemoglobin Re ference Range for Smokers: 2.0-8.0% Methemoglobin, Arterial 2.1(H) 0.0 - 1.5 % 02/20/2025 4:02 PM [facility] Sodium, Whole Blood 137 136 - 144 mmol/L 02/20/2025 4:02 PM [facility] Potassium, Whole Blood 4.2 3.5 - 5.0 mmol/L 02/20/2025 4:02 PM [facility] Calcium Ionized, Whole Blood 1.11 1.08 - 1.30 mmol/L 02/20/2025 4:02 PM EDT [facility] Calcium Ionized, pH corrected 1.12 1.08 - 1.30 mmol/L 02/20/2025 4:02 PM EDT [facility] Glucose, Whole Blood 113(H) 60 - 105 mg/dL 02/20/2025 4:02 PM EDT [facility] Lactate 1.0 0.5 - 2.2 mmol/L 02/20/2025 4:02 PM EDT [facility] Ionized Magnesium 0.42(L) 0.45 - 0.60 mmol/L 02/20/2025 4:02 PM EDT [facility] Hemoglobin, Whole Blood 10.6(L) 11.5 - 15.5 g/dL 02/20/2025 4:02 PM EDT [facility] Hematocrit, Whole Blood 32.7(L) 36.0 - 46.0 % 02/20/2025 4:02 PM EDT [facility] Blood, Arterial BLOOD SPECIMEN / Unknown 02/20/2025 3:51 PM EDT 02/20/2025 3:58 PM EDT us Zara Ramachandran DO BLOOD GASES Final Resul t [facility] [address] [place] [address], * SURGICAL PATHOLOGY (02/20/2025 3:13 PM EDT) Case Report Surgical Pathology Report Case: [id number] Authorizing Provider: Erik Pineda MD Collected: 02/20/2025 03:13 PM Ordering Location: Admitting Received: 02/20/2025 04:45 PM Pathologist: Brody Olvera MD Specimen: Brain, Resection, right middle sphenoid wing tumor 02/24/2025 3:36 PM EDT [facility] FINAL DIAGNOSIS A. Right middle sphenoid wing region, excision: - Morphologically consistent with meningothelial meningioma, WHO grade 1 02/24/2025 3:36 PM EDT [facility] at 1536 EDT Diagnosis Comment Immunohistochemical staining of the tumor with antibodies to SSTR2a and DE was performed on block A1. The tumor shows positive staining with both antibodies, consistent with the diagnosis. A Ki-67 index of approximately 2-3% is focally noted. 02/24/2025 3:36 PM EDT [facility] Gross Description A. Brain, Resection Received in formalin, labeled as brain resection, right middle sphenoid wing tumor is a single bryant-brown irregular rubbery tissue measuring 2.1 x 1.3 x 0.5 cm. Sectioning reveals bryant-davidson homogenous cut surfaces. Totally submitted in cassettes A1-A2. CG February 21, 2025 10:13 AM Gross examination performed at [facility], [address] [place] [address] 02/24/2025 3:36 PM EDT [facility] Clinical History Pre-op diagnosis: Intracranial meningioma (HCC) [D32.0] Preop testing [Z01.818] 02/24/2025 3:36 PM EDT [facility] Performing Lab Diagnostic interpretation performed at: [facility], [address] [place] [address], [place] [address] CLIA# [id number] Barrel Repairer: Charan Ryan MD 02/24/2025 3:36 PM EDT [facility] Disclaimer Laboratory Developed Test (LDT) Disclaimer: Performance characteristics of immunohistochemical, immunofluorescent, and chromogenic in-situ hybridization tests have been determined by the performing laboratory within [facility]'s Andrzej Mckeon Pathology and Laboratory Medicine Department ([facility], [facility], [facility], [facility], [facility], or [facility]) in a manner consistent with CLIA requirements. One or more of these tests may not have been cleared or approved by the FDA. [facility] is regulated under CLIA as qualified to perform high-complexity testing. These tests are used for clinical purposes. These should not be regarded as investigational or for research. Positive and negative controls stain appropriately. 02/24/2025 3:36 PM EDT [facility] Tissue [employer] CANCER CHECKLIST; BRAIN/SPINAL CORD: BIOPSY/RESECTION / Unknown 02/20/2025 3:13 PM EDT 02/20/2025 4:45 PM EDT Comment:Pre-op diagnosis: Intracranial meningioma (HCC) [D32.0] Preop testing [Z01.818] us Erik Pineda MD SURGICAL PATHOLOGY Final Resu lt [facility] [address] [place] [address], [place] * ARTL CATHJ/CANNULJ MNTR/TRANSFUSION SPX PRQ (02/20/2025 12:47 PM EDT) Narrative Zara Ramachandran DO - 02/20/2025 12:47 PM EDT Zara Ramachandran DO 02/20/2025 4:12 PM A-Line General Information Procedure Start Time/Medication Administration: 02/20/2025 12:47 PM Procedure End Time: 02/20/2025 12:50 PM Patient location during procedure: OR Timeout Performed Pre-procedure: timeout performed Consent Obtained: Yes Patient identity confirmed: arm band Indications: continuous blood pressure monitoring Staffing Anesthesiologist: Zara Ramachandran DO Resident: Tari Garza MD Performed by: resident Preparation Sterility Preparation: surgical cap used, mask used, sterile drape used during line insertion, skin prep agent completely dried prior to procedure Site Prep: Chlorhexidine Procedure Details Catheter Type: arterial line Catheter Size: 20 G Catheter Length: 5.25 in Guidewire Used: Yes Guidewire Removed Intact: Yes Laterality: left Site: radial artery Ultrasound Guided: Yes Image in Chart: No Sites: potential access sites evaluated, selected vessel patent, concurrent real time ultrasound visualization of vascular needle entry Vessel: target vessel identified and guidewire advanced into vessel Line Secured: Tegaderm, tape and occlusive biodressing Events Events: patient tolerated procedure well with no complications Comments I personally supervised the resident/ fellow for the procedure detailed below. I was present for the procedure. Zara Ramachandran DO, Staff Anesthesiologist us Zara Madie DO ANESTHESIA ORDERABLES Final Result * Airway (02/20/2025 12:43 PM EDT) Narrative Tari Garza MD - 02/20/2025 12:43 PM EDT Tari Garza MD 02/20/2025 2:01 PM Airway General Information Procedure Start Time/Medication Administration: 02/20/2025 12:43 PM Procedure End Time: 02/20/2025 12:45 PM Patient location during procedure: OR Timeout Performed Pre-procedure: timeout performed Consent Obtained: Yes Patient identity confirmed: arm band Staffing Anesthesiologist: Zara Ramachandran DO Resident: Flower Reed DO Performed by: anesthesiologist Indications and Patient Condition Indications for airway management: anesthesia Preoxygenated: yes anesthesia circuit Patient position: sniffing Method: asleep Difficult Mask: No Airway Accessory: oral airway Final Airway Details Final airway type: endotracheal airway Final Endotracheal Airway: ETT Cuffed: yes Successful intubation technique: video laryngoscopy Devices used: Taylor Endotracheal tube insertion site: oral Blade: Cora Blade size: #3 ETT size (mm): 7.0 Measured from: lips Measurement (cm): 22 Placement verified by: capnometry Cormack-Lehane Classification: grade I - full view of glottis Number of attempts at approach: 1 Failed airway: no Unrecognized esophageal intubation: no Airway not difficult Zara Ramachandran DO ANESTHESIA ORDERABLES Final Result * CONFIRM BLOOD TYPE (02/15/2025 12:56 PM EDT) ABO A 02/15/2025 7:21 PM EDT [facility] Rh(D) Negative 02/15/2025 7:21 PM EDT [facility] Blood BLOOD SPECIMEN / Unknown Venipuncture / Unknown 02/15/2025 12:56 PM EDT 02/15/2025 12:56 PM EDT Marli Martin [facility] [facility].HOSPITAL DIRECTOR BLOOD BANK Final Res ult [facility] [address] [place] [address], * HEMOGLOBIN A1C (02/15/2025 12:56 PM EDT) Hemoglobin A1C 5.4 4.3 - 5.6 % 02/16/2025 6:33 AM EDT [facility] Comment:[place] Diabetes [employer] sociation guidelines indicate that patients with HgbA1c in the range 5.7-6.4% are at increased risk for development of diabetes, and intervention by lifestyle modification may be beneficial. HgbA1c greater or equal to 6.5% is considered diagnostic of diabetes. Estimated Average Glucose 108 mg/dL 02/16/2025 6:33 AM EDT [facility] Comment:eAG: (Estimated aver age glucose) is a calculated value from HgbA1c and is food service sales representatives of the average blood glucose level in the last 2-3 month period. Blood BLOOD SPECIMEN / Unknown Venipuncture / Unknown 02/15/2025 12:56 PM EDT 02/15/2025 12:56 PM EDT us Marli Martin [employer].HOSPITAL DIRECTOR LABORATORY Final Res ult [facility] [address] [place] [address], [place] * MRI BRAIN WO/W IVCON (02/14/2025 10:37 AM EDT) Anatomical Region Laterality Modality Head Magnetic Resonan ce 02/14/2025 10:3 7 AM EDT Impressions 02/14/2025 10:37 AM EDT IMPRESSION: Findings across multiple examinations suggesting an intraosseous meningioma centered in the right sphenoid buttress and slow progressive enlargement of the contiguous protuberant anterior right temporal extra-axial nodule looking back to the exam in November 2015. No acute abnormalities. Glassware Maker Demonstrator: [facility] Transcribe Date/Time: Feb 14 2025 10:01A Dictated by : SEAN BLOCK MD This examination was interpreted and the report reviewed and electronically signed by: SEAN BLOCK MD on Feb 14 2025 10:22AM EST Narrative 02/14/2025 10:37 AM EDT * * *Final Report* * * DATE OF EXAM: Feb 14 2025 10:37AM LN [id number] - MRI BRAIN WO/W IVCON / PROCEDURE REASON: multiple diagnoses * * * * Physician Interpretation * * * * EXAMINATION: MRI SKULL BASE WO/W IVCON CLINICAL HISTORY: Right sphenoid wing meningioma. TECHNIQUE: Sagittal T1, high-resolution coronal and axial T1, fat-suppressed axial fast T2, and high-resolution, fat-suppressed, gadolinium enhanced axial VIBE with coronal planar reformats of the skull base. Contrast: 20 mL Dotarem IV COMPARISON: Previous examinations of the brain outside MRI examination 12/04/2015, outside MRI examination 05/06/2023, 01/29/[address] RESULT: Postop Changes: None. Acute Change: There is no evidence of an acute intracranial process. Brain Parenchyma: There is stable mild mass effect on the right temporal pole by the meningioma described below. No gross signal change in the adjacent brain. No evidence for aggressive infiltration at the margins of the mass. The brain parenchyma is otherwise within normal [...] the cisternal segments of the cranial nerves. Concordant appearance after gadolinium. Left transverse sinus is dominant. Skull Base: Again noted is a dural based extra-axial soft tissue mass along the greater wing of the right sphenoid bone which is heterogeneously hyperintense on FLAIR and T2 and demonstrates prominent heterogeneous enhancement following gadolinium administration compatible with a meningioma. Overall, the protuberant portion of the enhancing extra-axial mass measures approximately 0.8 x 1.7 x 1.5 cm in greatest AP, transverse, and CC dimensions, respectively. There is contiguous abnormal hypointensity on T1 and T2 with subtle expansion of the right sphenoid and subtle asymmetric heterogeneous enhancement with gadolinium suggesting that the protuberance of the nodule against the right temporal pole represents exophytic extension from an intraosseous meningioma centered in the right sphenoid buttress. Bony detail is displayed to better advantage on the prior CT 01/29/2024 (302:51 and adjacent contiguous images). Looking back to the 2016 exam, there is slightly greater enhancement along the dura medial to the exophytic nodule, but no gross narrowing of right Meckel's cave, gross extension into the cavernous sinus, or compromise of the right orbital apex. Inferotemporal Fossa: There is no evidence of a contiguous soft tissue mass extending into the of the respiratory therapy technician or parapharyngeal spaces. The soft tissue planes of the, retropharyngeal, and prevertebral spaces are maintained. The visualized parotid glands are normal in appearance. Nasopharynx/Oropharynx: The nasopharynx and oropharynx are normal in appearance. Procedure Note Provider, [facility] [place] - 02/14/2025 * * *Final Report* * * DATE OF EXAM: Feb 14 2025 10:37AM [facility] 0295 - MRI BRAIN WO/W IVCON / PROCEDURE REASON: multiple diagnoses * * * * Physician Interpretation * * * * EXAMINATION: MRI SKULL BASE WO/W IVCON CLINICAL HISTORY: Right sphenoid wing meningioma. TECHNIQUE: Sagittal T1, high-resolution coronal and axial T1, fat-suppressed axial fast T2, and high-resolution, fat-suppressed, gadolinium enhanced axial VIBE with coronal planar reformats of the skull base. Contrast: 20 mL Dotarem IV COMPARISON: Previous examinations of the brain outside MRI examination 12/04/2015, outside MRI examination 05/06/2023, 01/29/[address] RESULT: Postop Changes: None. Acute Change: There is no evidence of an acute intracranial process. Brain Parenchyma: There is stable mild mass effect on the right temporal pole by the meningioma described below. No gross signal change in the adjacent brain. No evidence for aggressive infiltration at the margins of the mass. The brain parenchyma is otherwise within normal [...] the cisternal segments of the cranial nerves. Concordant appearance after gadolinium. Left transverse sinus is dominant. Skull Base: Again noted is a dural based extra-axial soft tissue mass along the greater wing of the right sphenoid bone which is heterogeneously hyperintense on FLAIR and T2 and demonstrates prominent heterogeneous enhancement following gadolinium administration compatible with a meningioma. Overall, the protuberant portion of the enhancing extra-axial mass measures approximately 0.8 x 1.7 x 1.5 cm in greatest AP, transverse, and CC dimensions, respectively. There is contiguous abnormal hypointensity on T1 and T2 with subtle expansion of the right sphenoid and subtle asymmetric heterogeneous enhancement with gadolinium suggesting that the protuberance of the nodule against the right temporal pole represents exophytic extension from an intraosseous meningioma centered in the right sphenoid buttress. Bony detail is displayed to better advantage on the prior CT 01/29/2024 (302:51 and adjacent contiguous images). Looking back to the 2016 exam, there is slightly greater enhancement along the dura medial to the exophytic nodule, but no gross narrowing of right Meckel's cave, gross extension into the cavernous sinus, or compromise of the right orbital apex. Inferotemporal Fossa: There is no evidence of a contiguous soft tissue mass extending into the of the respiratory therapy technician or parapharyngeal spaces. The soft tissue planes of the, retropharyngeal, and prevertebral spaces are maintained. The visualized parotid glands are normal in appearance. Nasopharynx/Oropharynx: The nasopharynx and oropharynx are normal in appearance. IMPRESSION IMPRESSION: Findings across multiple examinations suggesting an intraosseous meningioma centered in the right sphenoid buttress and slow progressive enlargement of the contiguous protuberant anterior right temporal extra-axial nodule looking back to the exam in November 2015. No acute abnormalities. Glassware Maker Demonstrator: [facility] Transcribe Date/Time: Feb 14 2025 10:01A Dictated by : SEAN BLOCK MD This examination was interpreted and the report reviewed and electronically signed by: SEAN BLOCK MD on Feb 14 2025 10:22AM EST Erik Pineda MD MRI-PAMA Final Result * STAPHYLOCOCCUS AUREUS & MRSA SCREEN, PCR, NASAL (02/14/2025 8:19 AM EDT) Pathologist [facility] Staphylococcus aureus DNA Not Detected Not Detected CEPHEID GENEXPERT COVID19 02/14/2025 10:17 PM EDT [facility] Swab POSTERIOR NARES / Unknown Non Blood / Unknown 02/14/2025 8:19 AM EDT 02/14/2025 8:20 AM EDT Erik Pineda MD LABORATORY Final Result Performing Organization Address City/[facility]/ZIP Co de Phone Number [facility] [address] [place] [address], [place] * TYPE AND SCREEN,30 DAY (02/14/2025 8:19 AM EDT) ABO A 02/14/2025 5:02 PM EDT [facility] Rh(D) Negative 02/14/2025 5:02 PM EDT [facility] Antibody Screen Negative 02/14/2025 5:02 PM EDT [facility] Blood BLOOD SPECIMEN / Unknown Venipuncture / Unknown 02/14/2025 8:19 AM EDT 02/14/2025 8:20 AM EDT Erik Pineda MD BLOOD BANK Final Result MAIN BLOOD BANK [address] [facility] [place] [id number], [place] * SEDIMENTATION RATE, WESTERGREN (02/14/2025 8:19 AM EDT) Celia Beck 2 0 - 20 mm/hr 02/14/2025 5:30 PM EDT [facility] Blood BLOOD SPECIMEN / Unknown Venipuncture / Unknown 02/14/2025 8:19 AM EDT 02/14/2025 8:20 AM EDT us Zulema Mclean MD LABORATORY Final Result [facility] [address] [place] [address], * COMPLETE BLOOD COUNT (02/14/2025 8:19 AM EDT) Pathologist [facility] WBC 7.27 3.70 - 11.00 k/uL 02/14/2025 2:28 PM EDT [facility] RBC 4.21 3.90 - 5.20 m/uL 02/14/2025 2:28 PM EDT [facility] Hemoglobin 12.6 11.5 - 15.5 g/dL 02/14/2025 2:28 PM EDT [facility] Hematocrit 39.2 36.0 - 46.0 % 02/14/2025 2:28 PM EDT [facility] MCV 93.1 80.0 - 100.0 fL 02/14/2025 2:28 PM EDT [facility] MCH 29.9 26.0 - 34.0 pg 02/14/2025 2:28 PM EDT [facility] MCHC 32.1 30.5 - 36.0 g/dL 02/14/2025 2:28 PM EDT [facility] RDW-CV 13.4 11.5 - 15.0 % 02/14/2025 2:28 PM EDT [facility] Platelet Count 329 150 - 400 k/uL 02/14/2025 2:28 PM EDT [facility] MPV 10.9 9.0 - 12.7 fL 02/14/2025 2:28 PM EDT [facility] Absolute nRBC <0.01 <0.01 k/uL 02/14/2025 2:28 PM EDT [facility] Blood BLOOD SPECIMEN / Unknown Venipuncture / Unknown 02/14/2025 8:19 AM EDT 02/14/2025 8:20 AM EDT Zulema Mclean MD LABORATORY Final Result [facility] [address] [place] [id number], [place] * C-REACTIVE PROTEIN (02/14/2025 8:19 AM EDT) CRP 0.6 <0.9 mg/dL 02/14/2025 8:59 PM EDT [facility] Blood BLOOD SPECIMEN / Unknown Venipuncture / Unknown 02/14/2025 8:19 AM EDT 02/14/2025 8:20 AM EDT Zulema Mclean MD LABORATORY Final Result [facility] [address] [place] [address], [place] * ASPARTATE AMINOTRANSFERASE/SGOT (02/14/2025 8:19 AM EDT) AST 20 13 - 35 U/L 02/14/2025 8:59 PM EDT [facility] Blood BLOOD SPECIMEN / Unknown Venipuncture / Unknown 02/14/2025 8:19 AM EDT 02/14/2025 8:20 AM EDT us Zulema Mclean MD LABORATORY Final Result [facility] [address] [place] [id number], [place] * ALANINE AMINOTRANSFERASE / SGPT (02/14/2025 8:19 AM EDT) ALT 27 7 - 38 U/L 02/14/2025 8:59 PM EDT [facility] Blood BLOOD SPECIMEN / Unknown Venipuncture / Unknown 02/14/2025 8:19 AM EDT 02/14/2025 8:20 AM EDT Zulema Mclean MD LABORATORY Final Result [facility] [address] [address], [place] * ECG COMPLETE (02/14/2025 7:00 AM EDT) Ventricular Rate 77 BPM [facility] Atrial Rate 77 BPM [facility] P-R Interval 138 ms [facility] QRS Duration 82 ms [facility] QT Inter[facility] 386 ms [facility] QTC Calculation (Bazett) 436 ms [facility] Calculated P Salol 36 degrees [facility] Calculated R Salol 47 degrees [facility] Calculated T Salol 47 degrees [facility] 02/14/2025 7:00 AM EDT Impressions [facility] - 02/14/2025 1:23 PM EDT NORMAL SINUS RHYTHM NORMAL ECG Confirmed by DI YORK M.D. ([id number]) on 02/14/2025 1:23:03 PM N[facility]ative [facility] - 02/14/2025 1:23 PM EDT NAME : KOURTNEY NOVAK PID : [id number] : 1975 Gender : Female Race : ORD : Procedure Date : Feb 14 2025 07:00:27 Edit Date : Feb 14 2025 13:23:06 Diagnosis: NORMAL SINUS RHYTHM NORMAL ECG Confirmed by DI YORK M.D. ([id number]) on 02/14/2025 1:23:03 PM Test Reason : Location : 145 : LOCARD Overread By : DI YORK M.D. Edited By : DI YORK M.D. Referred By : ERIK PINEDA Acquired by : am, us Ccf Provider EKG Final Result Performing Organization Address [facility]/State/ZIP Co de Phone Number [facility] [address] [place] [address] * HEP REMOTE PANEL BL (03/04/2021 1:39 PM EDT) Hep B Core Ab, Total Negative Negative 03/04/2021 6:54 PM EDT [facility] Hep C Antibody IA Negative Negative 03/04/2021 6:55 PM EDT [facility] HBsAg Negative Negative 03/04/2021 6:54 PM EDT [facility] Hep B Surface Ab, Qual Negative Negative 03/04/2021 6:55 PM EDT [facility] Comment:NEGATIVE Blood 03/04/2021 1:39 PM EDT 03/04/2021 1:41 PM EDT Zulema Mclean MD LABORATORY Final Result Performing Organization Address [facility] Co de Phone Number [facility] [address] [place] [address] [facility] [address] [place] [address] * HIV AB 1&2 SCREEN (01/05/2006 3:17 PM EDT) Pathologist [facility] HIV 1 & 2 Ab (EIA) Non Reactive NR [facility] Comment: If results are indeterminate or otherwise inconsistent with an individual's clinical presentation or risk profile for HIV infection a repeat specimen is requested. A repeat specimen is also recommended for any individual identified positive for the first time. 01/05/2006 3:17 PM EDT us Wade Iqbal LABORATORY Final Result Performing Organization Address City/[facility]/ZIP Co de Phone Number [facility] [address] [place] [address] from Last 3 Months or Most Recently Relevant to Health Maintenance Insurance MEDICAID [place] MEDICARE ADVANTAGE HMO Care Teams Apparel Merchandiser Relationship Specialty Start Date End Date Jesus Camacho MD [address] [place] [address] PCP - General Family Medicine 05/12/23 Jesus Camacho MD Referring Family Medicine 01/14/21 Jesus Camacho MD [address] [place] [address] Referring Family Medicine 05/12/23
--- OUTSIDE RECORDS SUMMARY | 2025-04-24 08:33 | XMS_ITS | Encounter Summary ---
Author Organization [facility] Address [address] [place] [address] Care Team Providers Care Software Administrator Name Role Phone Jesus Camacho MD Unavailable [phone] Jesus Camacho MD Unavailable [phone] Jesus Camacho MD Primary Care Provider [phone] Source Comments In the event this information is protected by the Federal Confidentiality of Alcohol and Drug AbusePatient Records regulations: The Federal rules restrict any use of the information to criminally investigate or prosecute any alcohol or drug abuse patient.[facility] Encounter Details Date Type Department Care Team (Late st Contact Info) Description 02/09/2024 Get Medical Advice Neurology Headache [facility] [address] [place] [address] Rachele Fenton, MARILEE.BRICK OFF BEARER [address] [place] [address] Medicine Social History Tobacco Use [...] lower risk 8 06/01/2023 Data from: https://www.neighborhoodatlas.medicine.[facility]/. Last address used for calculation [address] [facility] 06/01/2023 Comments No Sex and Gender [...] 06/22/2025 2:20 PM EDT Office Visit Rheumatology [address] [place] [address] Zulema Mclean MD [address] [facility] [address] [place] [address] 6 month follow up documented as of this encounter Visit Diagnoses Not on filedocumented in this encounter Care Teams Software Administrator Relationship Specialty Start Date End Date Jesus Camacho MD [address] [place] [address] PCP - General Family Medicine 05/12/23 Jesus Camacho MD Referring Family Medicine 01/14/21 Jesus Camacho MD [address] [place] [address] Referring Family Medicine 05/12/23 documented as of this encounter
--- OUTSIDE RECORDS SUMMARY | 2025-04-24 08:34 | XMS_ITS | Encounter Summary ---
Author Organization [facility] Address [facility] [place] [address] Care Team Providers Care Plaster Maker Name Role Phone Jesus Camacho MD Unavailable [phone] Jesus Camacho MD Unavailable [phone] Jesus Camacho MD Primary Care Provider [phone] Source Comments In the event this information is protected by the Federal Confidentiality of Alcohol and Drug AbusePatient Records regulations: The Federal rules restrict any use of the information to criminally investigate or prosecute any alcohol or drug abuse patient.[facility] Encounter Details Date Type Department Care Team (Late st Contact Info) Description 01/06/2023 Get Medical Advice Rheumatology [address] [place] [address] Zulema Mclean MD [address] [facility] [address] [place], [place] [id number] Fibromyalgia update Social History Tobacco Use Types Packs/Day Years Used Date Smoking Tobacco: Former Smokeless Tobacco: Never PHQ-2 Answer Date Recorded PHQ-2 score 1 09/22/2022 Area Deprivation Index Answer Date Eliseo rded National Score (1-100), lower number is lower ri sk 90 09/29/2022 State Score (1-10), lower number is lower risk N ot on file 09/29/2022 Data from: https://www.neighborhoodatlas.medicine.[facility]/. Last address used for calculation [address] 09/29/2022 Comments No Sex and Gender Information Value [...] 06/22/2025 2:20 PM EDT Office Visit Rheumatology [address] [place] [address] Zulema Mclean MD [address] [facility] [address] [place] [address] 6 month follow up documented as of this encounter Visit Diagnoses Not on filedocumented in this encounter Care Teams Plaster Maker Relationship Specialty Start Date End Date Jesus Camacho MD [address] [place] [address] PCP - General Family Medicine 05/12/23 Jesus Camacho MD Referring Family Medicine 01/14/21 Jesus Camacho MD [address] [place] [address] Referring Family Medicine 05/12/23 documented as of this encounter
--- OUTSIDE RECORDS SUMMARY | 2025-04-24 08:34 | XMS_ITS | Encounter Summary ---
Author Organization [facility] Address [address] [place] [address] Care Team Providers Care Railroad Accountant Name Role Phone Jesus Camacho MD Unavailable [phone] Jesus Camacho MD Unavailable [phone] Jesus Camacho MD Primary Care Provider [phone] Source Comments In the event this information is protected by the Federal Confidentiality of Alcohol and Drug AbusePatient Records regulations: The Federal rules restrict any use of the information to criminally investigate or prosecute any alcohol or drug abuse patient.[facility] Encounter Details Date Type Department Care Team (Late st Contact Info) Description 01/19/2025 Patient Msg Spine [place] [address] [place] [address] Provider, Ccf Pre Surgery appointments Social History Tobacco Use Types Packs/Day Years [...] is lower risk 8 06/01/2023 Data from: https://www.neighborhoodatlas.medicine.[facility].edu/. Last address used for calculation [address] 06/01/2023 Comments No Sex and Gender [...] 06/22/2025 2:20 PM EDT Office Visit Rheumatology [address] [place] [address] Zulema Mclean MD [address] [facility] [address] [place] [address] 6 month follow up documented as of this encounter Visit Diagnoses Not on filedocumented in this encounter Care Teams Railroad Accountant Relationship Specialty Start Date End Date Jesus Camacho MD [address] [place] [address] PCP - General Family Medicine 05/12/23 Jesus Camacho MD Referring Family Medicine 01/14/21 Jesus Camacho MD [address] [place] [address] Referring Family Medicine 05/12/23 documented as of this encounter
--- OUTSIDE RECORDS SUMMARY | 2025-04-24 08:34 | XMS_ITS | Encounter Summary ---
Author Organization [facility] Address [facility] [place] [address] Care Team Providers Care Macadam Raker Name Role Phone Jesus Camacho MD Unavailable [phone] Jesus Camacho MD Unavailable [phone] Jesus Camacho MD Primary Care Provider [phone] Source Comments In the event this information is protected by the Federal Confidentiality of Alcohol and Drug AbusePatient Records regulations: The Federal rules restrict any use of the information to criminally investigate or prosecute any alcohol or drug abuse patient.[facility] Encounter Details Date Type Department Care Team (Late st Contact Info) Description 12/30/2024 Get Medical Advice [facility] [address] [place] [address] Jacky Pineda MD [address] [place] [address] Eye test results Social History Tobacco Use Types Packs/Day Years [...] is lower risk 8 06/01/2023 Data from: https://www.neighborhoodatlas.medicine.[facility]/. Last address used for calculation [address] 06/01/2023 Comments No Sex and Gender Information Value Date Recorded Sex Assigned at Female 02/25/2021 11:09 PM EDT Legal Sex Female 8:01 AM EST Gender Identity Female 02/25/2021 11:09 PM EDT Sexual Orientation Straight 02/25/2021 11 :09 PM EDT documented as of this encounter Miscellaneous Notes * Telephone Encounter - Chana Rose - 01/05/2025 12:55 PM EDT Results received, please see scanned docs. Letty documented in this encounter Plan of Treatment Upcoming Encounters Date Type Department Care Team (Late st Contact Info) Description 06/22/2025 2:20 PM EDT Office Visit Rheumatology [address] [place] [address] Zulema Mclean MD [address] [facility] [address] [place] [address] 6 month follow up documented as of this encounter Visit Diagnoses Not on filedocumented in this encounter Care Teams Macadam Raker Relationship Specialty Start Date End Date Jesus Camacho MD [address] [place] [address] PCP - General Family Medicine 05/12/23 Jesus Camacho MD Referring Family Medicine 01/14/21 Jesus Camacho MD [address] [place] [id number] Referring Family Medicine 05/12/23 documented as of this encounter
--- OUTSIDE RECORDS SUMMARY | 2025-04-24 08:34 | XMS_ITS | Encounter Summary ---
Author Organization [facility] Address [address] [place] [address] Care Team Providers Care Twister Hand Name Role Phone Jesus Camacho MD Unavailable [phone] Jesus Camacho MD Unavailable [phone] Jesus Camacho MD Primary Care Provider [phone] Source Comments In the event this information is protected by the Federal Confidentiality of Alcohol and Drug AbusePatient Records regulations: The Federal rules restrict any use of the information to criminally investigate or prosecute any alcohol or drug abuse patient.[facility] Encounter Details Date Type Department Care Team (Late st Contact Info) Description 01/13/2025 Get Medical Advice [facility] [address] [place] [address] Jacky Pineda MD [address] [place] [address] Surgery question Social History Tobacco Use Types Packs/Day Years [...] risk 8 06/01/2023 Data from: https://www.neighborhoodatlas.medicine.[facility]/. Last [facility] for calculation [address] [facility]/[address] Comments No Sex and Gender [...] 06/22/2025 2:20 PM EDT Office Visit Rheumatology [address] [place] [address] Zulema Mclean MD [address] [facility] [address] [place] [address] 6 month follow up documented as of this encounter Visit Diagnoses Not on filedocumented in this encounter Care Teams Twister Hand Relationship Specialty Start Date End Date Jesus Camacho MD [address] [place] [address] PCP - General Family Medicine 05/12/23 Jesus Camacho MD Referring Family Medicine 01/14/21 Jesus Camacho MD [address] [place] [address] Referring Family Medicine 05/12/23 documented as of this encounter
--- OUTSIDE RECORDS SUMMARY | 2025-04-24 08:34 | XMS_ITS | Encounter Summary ---
Author Organization [facility] Address [facility] [place] [address] Care Team Providers Care Getter Filler Name Role Phone Jesus Camacho MD Unavailable [phone] Jesus Camacho MD Unavailable [phone] Jesus Camacho MD Primary Care Provider [phone] Source Comments In the event this information is protected by the Federal Confidentiality of Alcohol and Drug AbusePatient Records regulations: The Federal rules restrict any use of the information to criminally investigate or prosecute any alcohol or drug abuse patient.[facility] Encounter Details Date Type Department Care Team (Late st Contact Info) Description 10/08/2023 Get Medical Advice [facility] [address] [place] [address] Jacky Pineda MD [address] [place] [address] Eye problems Social History Tobacco Use Types Packs/Day Years [...] 06/01/2023 Data from: https://www.neighborhoodatlas.medicine.[facility]/. Last address used for calculation [address] 06/01/2023 Comments No Sex and Gender [...] 06/22/2025 2:20 PM EDT Office Visit Rheumatology [address] [place] [address] Zulema Mclean MD [address] [facility] [address] [place] [address] 6 month follow up documented as of this encounter Visit Diagnoses Not on filedocumented in this encounter Care Teams Getter Filler Relationship Specialty Start Date End Date Jesus Camacho MD [address] [place] [address] PCP - General Family Medicine 05/12/23 Jesus Camacho MD Referring Family Medicine 01/14/21 Jesus Camacho MD [address] [place] [address] Referring Family Medicine 05/12/23 documented as of this encounter
--- OUTSIDE RECORDS SUMMARY | 2025-04-24 08:34 | XMS_ITS | Encounter Summary ---
Author Organization [facility] Address [facility] [place] [address] Care Team Providers Care Materials Research Engineer Name Role Phone Jesus Camacho MD Unavailable [phone] Jesus Camacho MD Unavailable [phone] Jesus Camacho MD Primary Care Provider [phone] Source Comments In the event this information is protected by the Federal Confidentiality of Alcohol and Drug AbusePatient Records regulations: The Federal rules restrict any use of the information to criminally investigate or prosecute any alcohol or drug abuse patient.[facility] Encounter Details Date Type Department Care Team (Late st Contact Info) Description 12/14/2024 Get Medical Advice [facility] [address] [place] [address] Jacky Pineda MD [address] [place] [address] Eye test Social History Tobacco Use Types Packs/Day Years [...] is lower risk 8 06/01/2023 Data from: https://www.neighborhoodatlas.medicine.[facility]/. Last [facility] used for calculation [address] [facility]/01/[facility] Comments No Sex and [...] 06/22/2025 2:20 PM EDT Office Visit Rheumatology [address] [place] [address] Zulema Mclean MD [address] [facility] [address] [place] [address] 6 month follow up documented as of this encounter Visit Diagnoses Not on filedocumented in this encounter Care Teams Materials Research Engineer Relationship Specialty Start Date End Date Jesus Camacho MD [address] [place] [address] PCP - General Family Medicine 05/12/23 Jesus Camacho MD Referring Family Medicine 01/14/21 Jesus Camacho MD [address] [place] [address] Referring Family Medicine 05/12/23 documented as of this encounter
--- OUTSIDE RECORDS SUMMARY | 2025-04-24 08:34 | XMS_ITS | Encounter Summary ---
Author Organization [facility] Address [address] [place], [place] [address] Care Team Providers Care General Claims Agent Name Role Phone Jesus Camacho MD Unavailable [phone] Jesus Camacho MD Unavailable [phone] Jesus Camacho MD Primary Care Provider [phone] Source Comments In the event this information is protected by the Federal Confidentiality of Alcohol and Drug AbusePatient Records regulations: The Federal rules restrict any use of the information to criminally investigate or prosecute any alcohol or drug abuse patient.[facility] Reason for Referral * Consult, Test, Treat (Routine) - Closed Specialty Diagnoses / Procedures Referred By Contrahul t Referred To Contact Diagnoses Intracranial meningioma (HCC) Preop testing Procedures OFFICE/OUTPATIENT NEW HIGH MDM 60 MINUTES Jacky Pineda MD [address] [place] [address] Phone: tel: fax: Referral ID Status Reason Start Date Expiration Date V isits Requested Visits Authorized [id number] Closed PCP Requested Referral 01/13/2025 01/13/2026 1 1 * MRI/CT (Routine) - Closed Specialty Diagnoses / Procedures Referred By Tati gonzalez Referred To Contact MR IMAGING Diagnoses Intracranial meningioma (HCC) Preop testing Procedures MRI BRAIN WO/W IVCON MRI BRAIN BRAIN STEM W/O W/CONTRAST MATERIAL Jacky Pineda MD [address] [place] [address] Phone: tel: fax: MR IMAGING [place] [address] Referral ID Status Reason Start Date Expiration Date V isits Requested Visits Authorized [id number] Closed Auto-Generate d Referral 02/10/2025 09/13/2025 1 1 Encounter Details Date Type Department Care Team (Late st Contact Info) Description 01/13/2025 Cure Form [facility] [address] [place] [id number] Shakila Phillips, RN [address] [place] [address] Intracranial meningioma (HCC) (Primary Dx); Preop testing [...] risk 8 06/01/2023 Data from: https://www.neighborhoodatlas.medicine.[facility].edu/. Last address used for calculation [...] 06/22/2025 2:20 PM EDT Office Visit Rheumatology [address] [address] Zulema Mclean MD [address] [place] [address] 6 month follow up Scheduled Orders Name Type Priority Associated Diagnoses Orde r Schedule REFER FOR ADMIT INTERVIEW Procedures Routine Intracranial meningioma (HCC) Preop testing Ordered: 01/13/2025 Scheduled Referrals Name Type Priority Associated Diagnoses Orde r Schedule REFER TO [facility] PREOPERATIVE [facility]IM[facility] Referral Routine Intracranial meningioma (HCC) Preop testing 1 Occurrences starting 01/13/2025 until 01/13/2026 documented as of this encounter Results * MRI BRAIN WO/W IVCON (02/14/2025 10:37 [...] exam in November 2015. No acute abnormalities. Sustainability Director: PSCB Transcribe Date/Time: Feb 14 2025 10:01A Dictated by : SEAN BLOCK MD This examination was interpreted and the report reviewed and electronically signed by: SEAN BLOCK MD on Feb 14 2025 10:22AM EST Narrative 02/14/2025 10:37 AM EDT * * *Final Report* * * DATE OF EXAM: Feb 14 2025 10:37AM [facility] 0295 - MRI BRAIN WO/W IVCON / [...] tissue mass extending into the of the auto repair shop manager or parapharyngeal spaces. The soft tissue planes of the, retropharyngeal, and prevertebral spaces are maintained. The visualized parotid glands are normal in appearance. Nasopharynx/Oropharynx: The nasopharynx and oropharynx are normal in appearance. Procedure Note Provider, [facility] - 02/14/2025 * * *Final Report* * * DATE OF EXAM: Feb 14 2025 10:37AM [facility] 0295 - MRI BRAIN WO/W IVCON / [...] tissue mass extending into the of the auto repair shop manager or parapharyngeal spaces. The soft tissue planes [...] exam in November 2015. No acute abnormalities. Sustainability Director: GUANACO Transcribe Date/Time: Feb 14 2025 10:01A Dictated by : SEAN BLOCK MD This examination was interpreted and the report reviewed and electronically signed by: SEAN BLOCK MD on Feb 14 2025 10:22AM EST Jacky Pineda MD MRI-[facility] Final Result * STAPHYLOCOCCUS AUREUS & MRSA SCREEN, PCR, NASAL (02/14/2025 8:19 AM EDT) Staphylococcus aureus DNA Not Detected Not Detected CEPHEID GENEXPERT COVID19 02/14/2025 10:17 PM EDT [facility] Swab POSTERIOR NARES / Unknown Non Blood / Unknown 02/14/2025 8:19 AM EDT 02/14/2025 8:20 AM EDT Jacky Pineda MD LABORATORY Final Result Performing Organization Address [facility] Co de Phone Number [facility] [address] [facility] [address] [place] [address], * TYPE AND SCREEN,30 DAY (02/14/2025 8:19 AM EDT) ABO A 02/14/2025 5:02 PM EDT [facility]LOOD [facility] Rh(D) Negative 02/14/2025 5:02 PM EDT [facility] Antibody Screen Negative 02/14/2025 5:02 PM EDT [facility]LOOD [facility] Blood BLOOD SPECIMEN / Unknown Venipuncture / Unknown 02/14/2025 8:19 AM EDT 02/14/2025 8:20 AM EDT Jacky Pineda MD BLOOD BANK Final Result Performing Organization Address City/[facility] Co de Phone Number MAIN BLOOD BANK [address] [facility] [address] [place] [address], [place] documented in this encounter Visit Diagnoses Diagnosis Intracranial meningioma (HCC)- Primary Benign neoplasm of cerebral meninges Preop testing Preoperative examination, unspecified Intracranial meningioma (HCC) Benign neoplasm of cerebral meninges Preop testing Preoperative examination, unspecified documented in this encounter Care Teams General Claims Agent Relationship Specialty Start Date End Date Jesus Camacho MD [address] [place] [address] PCP - General Family Medicine 05/12/23 Jesus Camacho MD Referring Family Medicine 01/14/21 Jesus Camacho MD [address] [place] [address] Referring Family Medicine 05/12/23 documented as of this encounter
--- OUTSIDE RECORDS SUMMARY | 2025-04-24 08:34 | XMS_ITS | Encounter Summary ---
Author Organization [facility] Address [facility] [place] [address] Care Team Providers Care Security Officer Supervisor Name Role Phone Jesus Camacho MD Unavailable [phone] Jesus Camacho MD Unavailable [phone] Jesus Camacho MD Primary Care Provider [phone] Source Comments In the event this information is protected by the Federal Confidentiality of Alcohol and Drug AbusePatient Records regulations: The Federal rules restrict any use of the information to criminally investigate or prosecute any alcohol or drug abuse patient.[facility] Encounter Details Date Type Department Care Team (Late st Contact Info) Description 11/02/2022 Get Medical Advice Rheumatology [address] [place] [address] Zulema Mclean MD [address] [facility] [address] [place], [place] [id number] Fibromyalgia Social History Tobacco Use Types Packs/Day Years Used Date Smoking Tobacco: Former Smokeless Tobacco: Never PHQ-2 Answer Date Recorded PHQ-2 score 1 09/22/2022 Area Deprivation Index Answer Date Eliseo rded National Score (1-100), lower number is lower ri sk 90 09/29/2022 State Score (1-10), lower number is lower risk N ot on file 09/29/2022 Data from: https://www.neighborhoodatlas.medicine.[facility]/. Last address used for calculation [address] 09/29/2022 Comments No Sex and Gender Information Value Date Recorded Sex Assigned at Female 02/25/2021 11:09 PM EDT Legal Sex Female 8:01 AM EST Gender Identity Female 02/25/2021 11:09 PM EDT Sexual Orientation Straight 02/25/2021 11 :09 PM EDT documented as of this encounter Miscellaneous Notes * Telephone Encounter - Zulema Mclean MD - 11/03/2022 11:47 AM EST Please tell her I increased her cymbalta to 60mg po every day. The following approved medication requests have been transmitted electronically. Requested Prescriptions Signed Prescriptions Disp Refills DULoxetine (CYMBALTA) 60 mg capsule 30 capsule 3 Sig: Take 1 capsule by mouth once daily. Zulema Mclean MD documented in this encounter Plan of Treatment Upcoming Encounters Date Type Department Care Team (Late st Contact Info) Description 06/22/2025 2:20 PM EDT Office Visit Rheumatology [address] [place] [address] Zulema Mclean MD [address] [facility] [address] [place] [address] 6 month follow up documented as of this encounter Visit Diagnoses Not on filedocumented in this encounter Care Teams Security Officer Supervisor Relationship Specialty Start Date End Date Jesus Camacho MD [address] [place] [address] PCP - General Family Medicine 05/12/23 Jesus Camacho MD Referring Family Medicine 01/14/21 Jesus Camacho MD [address] [place] [address] Referring Family Medicine 05/12/23 documented as of this encounter
--- OUTSIDE RECORDS SUMMARY | 2025-04-24 08:34 | XMS_ITS | Encounter Summary ---
Author Organization [facility] Address [address] [place] [address] Care Team Providers Care Embroidery Machine Operator Name Role Phone Jesus Camacho MD Unavailable [phone] Jesus Camacho MD Unavailable [phone] Jesus Camacho MD Primary Care Provider [phone] Source Comments In the event this information is protected by the Federal Confidentiality of Alcohol and Drug AbusePatient Records regulations: The Federal rules restrict any use of the information to criminally investigate or prosecute any alcohol or drug abuse patient.[facility] Encounter Details Date Type Department Care Team (Late st Contact Info) Description 03/12/2023 Patient Msg Rheumatology [address] [place] [address] Provider, [facility] Appointment Cancellation Social History Tobacco Use Types Packs/Day Years Used Date Smoking Tobacco: Former Smokeless Tobacco: Never PHQ-2 Answer Date Recorded PHQ-2 score 1 09/22/2022 Area Deprivation Index Answer Date Eliseo rded National Score (1-100), lower number is lower ri sk 90 09/29/2022 State Score (1-10), lower number is lower risk N ot on file 09/29/2022 Data from: https://www.neighborhoodatlas.medicine.[facility].edu/. Last address used for calculation [...] 06/22/2025 2:20 PM EDT Office Visit Rheumatology [address] [place] [address] Zulema Mclean MD [address] [facility] [address] [place], [place] [id number] 6 month follow up documented as of this encounter Visit Diagnoses Not on filedocumented in this encounter Care Teams Embroidery Machine Operator Relationship Specialty Start Date End Date Jesus Camacho MD [address] [place] [address] PCP - General Family Medicine 05/12/23 Jesus Camacho MD Referring Family Medicine 01/14/21 Jesus Camacho MD [address] [place] [address] Referring Family Medicine 05/12/23 documented as of this encounter
--- OUTSIDE RECORDS SUMMARY | 2025-04-24 08:34 | XMS_ITS | Encounter Summary ---
Author Organization [facility] Address [facility] [place] [address] Care Team Providers Care Dean Of Instruction Name Role Phone Jesus Camacho MD Unavailable [phone] Jesus Camacho MD Unavailable [phone] Jesus Camacho MD Primary Care Provider [phone] Source Comments In the event this information is protected by the Federal Confidentiality of Alcohol and Drug AbusePatient Records regulations: The Federal rules restrict any use of the information to criminally investigate or prosecute any alcohol or drug abuse patient.[facility] Encounter Details Date Type Department Care Team (Late st Contact Info) Description 01/03/2025 Get Medical Advice [facility] [address] [place] [address] Jacky Pineda MD [address] [place] [address] Testing Social History Tobacco Use Types Packs/Day [...] risk 8 06/01/2023 Data from: https://www.neighborhoodatlas.medicine.[facility]/. Last address used for [...] 06/22/2025 2:20 PM EDT Office Visit Rheumatology [address] [place] [address] Zulema Mclean MD [address] [facility] [address] [place] [address] 6 month follow up documented as of this encounter Visit Diagnoses Not on filedocumented in this encounter Care Teams Dean Of Instruction Relationship Specialty Start Date End Date Jesus Camacho MD [address] [place] [address] PCP - General Family Medicine 05/12/23 Jesus Camacho MD Referring Family Medicine 01/14/21 Jesus Camacho MD [address] [place] [address] Referring Family Medicine 05/12/23 documented as of this encounter
--- OUTSIDE RECORDS SUMMARY | 2025-04-24 08:34 | XMS_ITS | Encounter Summary ---
Author Organization [facility] Address [address] [place] [address] Care Team Providers Care Rn Clinical Name Role Phone Jesus Camacho MD Unavailable [phone] Jesus Camacho MD Unavailable [phone] Jesus Camacho MD Primary Care Provider [phone] Source Comments In the event this information is protected by the Federal Confidentiality of Alcohol and Drug AbusePatient Records regulations: The Federal rules restrict any use of the information to criminally investigate or prosecute any alcohol or drug abuse patient.[facility] Encounter Details Date Type Department Care Team (Late st Contact Info) Description 12/31/2022 Patient Msg Hematology [address] [place] [address] Provider, [facility] Dr. Mclean Appointment Social History Tobacco Use Types Packs/Day Years Used Date Smoking Tobacco: Former Smokeless Tobacco: Never PHQ-2 Answer Date Recorded PHQ-2 score 1 09/22/2022 Area Deprivation Index Answer Date Eliseo rded National Score (1-100), lower number is lower ri sk 90 09/29/2022 State Score (1-10), lower number is lower risk N ot on file 09/29/2022 Data from: https://www.neighborhoodatlas.medicine.[facility].edu/. Last address used for calculation [address] 09/29/2022 Comments No Sex and Gender [...] 06/22/2025 2:20 PM EDT Office Visit Rheumatology [address] [place] [address] Zulema Mclean MD [address] [facility] [address] [place], [place] [id number] 6 month follow up documented as of this encounter Visit Diagnoses Not on filedocumented in this encounter Care Teams Rn Clinical Relationship Specialty Start Date End Date Jesus Camacho MD [address] [place] [address] PCP - General Family Medicine 05/12/23 Jesus Camacho MD Referring Family Medicine 01/14/21 Jesus Camacho MD [address] [place] [address] Referring Family Medicine 05/12/23 documented as of this encounter
[2025-04-24 08:36] VITALS: BP 145/92; PULSE 93; TEMP 36.4; O2SAT 98
[2025-04-24 09:00] VITALS: BP 136/90; PULSE 92; O2SAT 96
[2025-04-24 09:01] VITALS: BP 148/92; PULSE 90; O2SAT 97
[2025-04-24] MEDS: DEXAMETHASONE SOD PHOS 10 MG/ML VIAL INJ (09:04)
[2025-04-24] MEDS: BUPIVACAINE HCL 0.25% PF 25 MG/10 ML VIAL INJ (09:04)
--- NOTE | 2025-04-24 09:04 | W.PM.PROCNOT ---
Date of procedure: 04/24/25 Pre-op diagnosis: Pain due to cervical stenosis, M54.12 Post-op diagnosis: same as pre-op Procedure: Procedure: Bilateral C5-6 transforaminal epidural steroid injection Medications: Bupivacaine 0.25% 1cc, lidocaine 2% 1cc, dexamethasone 10mg The patient was seen and examined in the preoperative holding area.? Informed consent was obtained and placed on the chart.? Patient was brought to the medical procedure unit and placed in the prone position where a timeout was completed verifying the correct patient, procedure site, position, and planned special equipment using sterile aseptic technique.? Under direct fluoroscopic visualization a 25-gauge Quincke tipped spinal needle was advanced at level left C5-6 to the designated neural foramen where contrast dye was injected to show adequate spread.? There was no evidence of vascular or adverse uptake.? Epidural spread was appreciated.? The above-mentioned injectate was then placed in a 1.5 mL aliquot preceded by negative aspiration.? The needle was removed. The same procedure, at the same level, was completed on the opposite side. ? Patient was taken to the postprocedural recovery area and monitored for an appropriate length of time before found suitable for discharge in the accompaniment of a responsible adult. Anesthesia: Local Surgeon: Ridge Hollingsworth Pathology: none sent Condition: stable Disposition: no change
[2025-04-24] MEDS: IOHEXOL 240 MG/ML - 10 ML VIAL 24 MG INJ (09:05)
[2025-04-24] MEDS: LIDOCAINE HCL 2% 400 MG/20 ML MDV 3 ML INJ (09:05)
== END 2025-04-24 09:08 | disposition home or self-care (01) ==
LOC: SURGOUT 08:27
PROVIDERS: PCP Family Medicine; Visit Provider Anesthesiology
DX: M48.02 Spinal stenosis, cervical region (principal); M54.12 Radiculopathy, cervical region; E11.8 Type 2 diabetes mellitus with unspecified complications; Z79.84 Long term (current) use of oral hypoglycemic drugs
CPT/HCPCS: 36415; 64479; 82948; J0665; J1100; Q9966

== ENCOUNTER 2025-05-17 12:57 | Outpatient (OUT) | payer MEDICARE, MEDICAID, SELFPAY ==
--- OUTSIDE RECORDS SUMMARY | 2025-03-13 09:02 | XMS_ITS | Continuity of Care Document ---
Author Organization [facility] Address [address] [place] [address] Phone Care Team Providers Care Patient Scheduler Name Role Phone Hank Claire MCNAIRan Unavailable Unavaila ble Allergies, Adverse Reactions, Alerts Substance Reaction Status Criticality No Known Allergies Active No Inform ation Medications Medication Instructions Dosage Effective Dates (start - stop) Status Comments Depo-Provera 150 mg/mL intramuscular syringe inject 1 milliliter by intramuscular route every 3 months 150 MG - Active lisinopril 10 mg tablet take 1 tablet by oral route every day 10 MG - Active Farxiga 5 mg tablet take 1 tablet by oral route every day in the morning 5 MG - Active Actos 15 mg tablet take 1 tablet by oral route every day 15 MG - Active Fioricet 50 mg-300 mg-40 mg capsule take 1 - 2 capsule by oral route every 4 hours as needed not to exceed 6 capsules per 24hrs 1.00-2.00 capsule - Active Carafate 1 gram tablet take 1 tablet by oral route 3 times every day on an empty stomach 1 hour before meals and at bedtime 1 G - Active Amitiza 24 mcg capsule take 1 capsule by oral route 2 times every day with food and water 24 MCG - Active Synthroid 50 mcg tablet take 1 tablet by oral route every day 50 MCG - Active nortriptyline 25 mg capsule take 1 capsule by oral route every day 25 MG - Active Cymbalta 60 mg capsule,delayed release take 1 capsule by oral route every day - Active aspirin 325 mg tablet take 1 tablet by oral route every day 325 MG - Active Plaquenil 200 mg tablet take 1 tablet by oral route every 2 days 200 MG - Active Lyrica 100 mg capsule take 1 capsule by oral route 3 times every day 100 MG - Active amitriptyline 100 mg tablet take 1 tablet by oral route every day at bedtime 100 MG - Active simvastatin 20 mg tablet take 1 tablet by oral route every day in the evening 20 MG - Active Robinul 1 mg tablet - Active lamotrigine 200 mg tablet take 1 tablet by oral route 2 times every day 200 MG - Active Viibryd 40 mg tablet take 1 tablet by oral route every day with food 40 MG - Active Protonix 40 mg tablet,delayed release take 1 tablet by oral route every day 40 MG - Active metformin 500 mg tablet take 1 tablet by oral route 2 times every day with morning and evening meals 500 MG - Active Savella 100 mg tablet take 1 tablet (100MG) by oral route 2 times every day 100 MG - Active Zantac 300 mg tablet take 1 tablet (300MG) by oral route every day at bedtime - Active Daliresp 500 mcg tablet take 1 tablet (500MCG) by oral route every day 500 MCG - Active Problems Condition Type Effective Dates (start - stop) Clini [facility] Status Comments No Known Problems Procedures Procedure Date Depo Provera 1 Ml OFFICE/OUTPATIENT VISIT, EST OFFICE/OUTPATIENT VISIT, EST Bp scrn perf rec interval DIAST BP < 80 MM HG SYST BP < 130 MM HG MED LIST DOCD IN [facility] RVW MEDS BY RX/DR IN [facility] Pt inelig neg scrn depres Moderate Risk Prophylaxis Adult Nutrit [facility] [place] Dis Nov Oral Hygiene Instruction Depo Provera 1 Ml OFFICE/OUTPATIENT VISIT, EST PREV VISIT, EST, AGE 40-64 Depo Provera 1 Ml Intraoral-complete Series (bw) Sep-19-20 24 Comp Oral Eval New/estab Patient 2023 Oral Hygiene Instruction OFFICE/OUTPATIENT VISIT, EST Depo Provera 1 Ml Depo Provera 1 Ml OFFICE/OUTPATIENT VISIT, EST OFFICE/OUTPATIENT VISIT, EST Depo Provera 1 Ml Depo Provera 1 Ml OFFICE/OUTPATIENT VISIT, EST OFFICE/OUTPATIENT VISIT, EST Bp scrn perf rec interval DIAST BP < 80 MM HG SYST BP < 130 MM HG MED LIST DOCD IN [facility] RVW MEDS BY RX/DR IN [facility] Pt inelig neg scrn depres Obtaining screen pap smear CA screen;pelvic/breast exam Depo Provera 1 Ml OFFICE/OUTPATIENT VISIT, EST OFFICE/OUTPATIENT VISIT, EST Depo Provera 1 Ml Depo Provera 1 Ml OFFICE/OUTPATIENT VISIT, EST OFFICE/OUTPATIENT VISIT, EST Depo Provera 1 Ml OFFICE/OUTPATIENT VISIT, EST Depo Provera 1 Ml Obtaining screen pap smear THER/PROPH/DIAG INJ, SC/IM CA screen;pelvic/breast exam Depo Provera 1 Ml OFFICE/OUTPATIENT VISIT, EST THER/PROPH/DIAG INJ, SC/IM Depo Provera 1 Ml OFFICE/OUTPATIENT VISIT, EST THER/PROPH/DIAG INJ, SC/IM Depo Provera 1 Ml OFFICE/OUTPATIENT VISIT, EST Admin influenza virus vac FLU VAC NO PRSV 4 PITO 3 YRS+ OFFICE/OUTPATIENT VISIT, EST Depo Provera 1 Ml THER/PROPH/DIAG INJ, SC/IM Depo Provera 1 Ml OFFICE/OUTPATIENT VISIT, EST THER/PROPH/DIAG INJ, SC/IM Obtaining screen pap smear CA screen;pelvic/breast exam Depo Provera 1 Ml OFFICE/OUTPATIENT VISIT, EST THER/PROPH/DIAG INJ, SC/IM OFFICE/OUTPATIENT VISIT, EST Depo Provera 1 Ml THER/PROPH/DIAG INJ, SC/IM OFFICE/OUTPATIENT VISIT, EST Depo Provera 1 Ml THER/PROPH/DIAG INJ, SC/IM Depo Provera 1 Ml OFFICE/OUTPATIENT VISIT, EST THER/PROPH/DIAG INJ, SC/IM Depo Provera 1 Ml OFFICE/OUTPATIENT VISIT, EST Obtaining screen pap smear CA screen;pelvic/breast exam THER/PROPH/DIAG INJ, SC/IM Depo Provera 1 Ml THER/PROPH/DIAG INJ, SC/IM Depo Provera 1 Ml OFFICE/OUTPATIENT VISIT, EST Depo Provera 1 Ml OFFICE/OUTPATIENT VISIT, EST THER/PROPH/DIAG INJ, SC/IM Depo Provera 1 Ml OFFICE/OUTPATIENT VISIT, EST THER/PROPH/DIAG INJ, SC/IM Depo Provera 1 Ml OFFICE/OUTPATIENT VISIT, EST IMMUNIZATION ADMIN HEP A VACCINE, ADULT IM CA screen;pelvic/breast exam Depo Provera 1 Ml OFFICE/OUTPATIENT VISIT, EST Depo Provera 1 Ml OFFICE/OUTPATIENT VISIT, EST Depo Provera 1 Ml OFFICE/OUTPATIENT VISIT, EST OFFICE/OUTPATIENT VISIT, EST THER/PROPH/DIAG INJ, SC/IM Depo Provera 1 Ml Depo Provera 1 Ml OFFICE/OUTPATIENT VISIT, EST THER/PROPH/DIAG INJ, SC/IM Depo Provera 1 Ml PREV VISIT, EST, AGE 40-64 Depo Provera 1 Ml Obtaining screen pap smear CA screen;pelvic/breast exam THER/PROPH/DIAG INJ, SC/IM Depo Provera 1 Ml Depo Provera 1 Ml OFFICE/OUTPATIENT VISIT, EST Depo Provera 1 Ml OFFICE/OUTPATIENT VISIT, EST OFFICE/OUTPATIENT VISIT, EST Depo Provera 1 Ml OFFICE/OUTPATIENT VISIT, EST THER/PROPH/DIAG INJ, SC/IM Depo Provera 1 Ml OFFICE/OUTPATIENT VISIT, EST OFFICE/OUTPATIENT VISIT, EST DESTRUCT B9 LESION, 09-27 OFFICE/OUTPATIENT VISIT, EST DESTRUCT B9 LESION, 09-27 PREV VISIT, EST, AGE 18-39 Depo Provera 1 Ml PREV VISIT, EST, AGE 18-39 Obtaining screen pap smear CA screen;pelvic/breast exam THER/PROPH/DIAG INJ, SC/IM Depo Provera 1 Ml OFFICE/OUTPATIENT VISIT, EST THER/PROPH/DIAG INJ, SC/IM Depo Provera 1 Ml OFFICE/OUTPATIENT VISIT, EST OFFICE/OUTPATIENT VISIT, EST THER/PROPH/DIAG INJ, SC/IM Depo Provera 1 Ml OFFICE/OUTPATIENT VISIT, EST OFFICE/OUTPATIENT VISIT, EST THER/PROPH/DIAG INJ, SC/IM Depo Provera 1 Ml OFFICE/OUTPATIENT VISIT, EST THER/PROPH/DIAG INJ, SC/IM Depo Provera 1 Ml PREV VISIT, EST, AGE 18-39 OFFICE/OUTPATIENT VISIT, EST Depo Provera 1 Ml OFFICE/OUTPATIENT VISIT, EST OFFICE/OUTPATIENT VISIT, EST Depo Provera 1 Ml OFFICE/OUTPATIENT VISIT, EST OFFICE/OUTPATIENT VISIT, EST Depo Provera 1 Ml OFFICE/OUTPATIENT VISIT, EST Depo Provera 1 Ml OFFICE/OUTPATIENT VISIT, EST Obtaining screen pap smear CA screen;pelvic/breast exam Depo Provera 1 Ml OFFICE/OUTPATIENT VISIT, EST Depo Provera 1 Ml Condoms OFFICE/OUTPATIENT VISIT, EST Depo Provera 1 Ml OFFICE/OUTPATIENT VISIT, EST Depo Provera 1 Ml OFFICE/OUTPATIENT VISIT, EST OFFICE/OUTPATIENT VISIT, EST Depo Provera 1 Ml URINE TEST Depo Provera 1 Ml Obtaining screen pap smear CA screen;pelvic/breast exam OFFICE/OUTPATIENT VISIT, EST OFFICE/OUTPATIENT VISIT, EST Depo Provera 1 Ml URINE TEST OFFICE/OUTPATIENT VISIT, EST OFFICE/OUTPATIENT VISIT, EST Depo Provera 1 Ml OFFICE/OUTPATIENT VISIT, EST Depo Provera 1 Ml OFFICE/OUTPATIENT VISIT, EST Medroxyprogesterone Acetate 150 mg injec tion OFFICE/OUTPATIENT VISIT, EST Medroxyprogesterone Acetate 150 mg injec tion Obtaining screen pap smear CA screen;pelvic/breast exam Condoms OFFICE/OUTPATIENT VISIT, EST Medroxyprogesterone Acetate 150 mg injec tion OFFICE/OUTPATIENT VISIT, EST Medroxyprogesterone Acetate 150 mg injec tion OFFICE/OUTPATIENT VISIT, EST Medroxyprogesterone Acetate 104 mg injec tion OFFICE/OUTPATIENT VISIT, EST Medroxyprogesterone Acetate 104 mg injec tion PREV VISIT, NEW, AGE 18-39 Medrxyprogester acetate inj OFFICE/OUTPATIENT VISIT, EST Medrxyprogester acetate inj OFFICE/OUTPATIENT VISIT, EST Medrxyprogester acetate inj OFFICE/OUTPATIENT VISIT, EST Medrxyprogester acetate inj OFFICE/OUTPATIENT VISIT, EST Medrxyprogester acetate inj PREV VISIT, EST, AGE 18-39 Medroxyprogesterone Acetate 104 mg injec tion OFFICE/OUTPATIENT VISIT, EST Medrxyprogester acetate inj No Charge OFFICE/OUTPATIENT VISIT, EST Medrxyprogester acetate inj FLU VACCINE, 3 YRS & >, IM OFFICE/OUTPATIENT VISIT, EST Medrxyprogester acetate inj OFFICE/OUTPATIENT VISIT, EST Medrxyprogester acetate inj OFFICE/OUTPATIENT VISIT, EST Medrxyprogester acetate inj OFFICE/OUTPATIENT VISIT, EST HIV-1 URINALYSIS, NONAUTO W/SCOPE CRYOTHERAPY OF SKIN EST MEDICAID SPECIMEN HANDLING CRYOTHERAPY OF SKIN Medrxyprogester acetate inj FLU VACCINE, 3 YRS & >, IM OFFICE/OUTPATIENT VISIT, EST Medrxyprogester acetate inj Advance Directives Directive Yes / No Effective Date File Name No Information Encounters Encounter Description Practice Location Reason(s) For Visit Diagnoses Date Provider Providers Copied on Encounter OFFICE/OUTPA TIENT VISIT, [facility], [address] [place] [address], [id number] , [place] tel:[phone] [facility] Encounter for Depo-Provera contraception 5 [facility]. [address] [place] [address], [id number], [place]. tel:[phone] OFFICE/OUTPA TIENT VISIT, [facility], [address] [place] [address], [id number] , [place] tel:[phone] [facility] contraception (chief complaint) Depo Provera injectionBody mass index [BMI]40.0-44.9 , adult 5 [facility]. [address] [place] [address], [id number], [place]. tel:[phone] [facility], [address] [place] [address], [id number] , [place] tel:[phone] [facility] (chief complaint) Body mass index [BMI]40.0-44.9 , adultEncounter for screening for dental disorders 5 Kandarío DMD Jonathan. [address], [place], [id number], [place]. tel:[phone] OFFICE/OUTPA TIENT VISIT, EST [facility], [address] [place], [place], [id number] , [place] tel:[phone] [facility] Depo (chief complaint) Body mass index [BMI]40.0-44.9 , adultDepo Provera injection 5 [facility]. [address], [place], [id number], [place]. tel:[phone] PREV VISIT, EST, AGE 40-64 [facility], [address] [place] [address], [id number] , [place] tel: [phone] [facility] annual exam (chief complaint)cont raception (chief complaint) Encounter for gynecological examination (general) (routine) without abnormal findingsBody mass index [BMI]40.0-44.9 , adultDepo Provera injectionEncou nter for screening mammogram for Ca of breast 4 [facility]. [address] [place], [place], [id number], [place]. tel:[phone] [facility], [address] [place] [address], [id number] , [place] tel:[phone] [facility] dn (chief complaint)dn (chief complaint) Encounter for screening for dental disorders 4 Kandarío DMD Jonathan. [address] [place], [place], [id number], [place]. tel:[phone] OFFICE/OUTPA TIENT VISIT, EST [facility], [address], [place], [id number] , [place] tel:[phone] [facility] Depo (chief complaint) Depo Provera injectionBody mass index [BMI]40.0-44.9 , adult 4 [facility]. [address], [place], [id number], [place]. tel:[phone] OFFICE/OUTPA TIENT VISIT, [facility], [address] [place], [place], [id number] , [place] tel: [phone] [facility] Depo (chief complaint) Body mass index [BMI]40.0-44.9 , adultEncounter for surveillance of injectable contraceptive 4 [facility]. [address] [place] [address], [id number], [place]. tel:[phone] OFFICE/OUTPA TIENT VISIT, [facility], [address] [place] [address], [id number] , [place] tel:[phone] [facility] Depo (chief complaint) Depo Provera injectionBody mass index [BMI]40.0-44.9 , adult 4 [facility]. [address] [place] [address], [id number], [place]. tel:[phone] OFFICE/OUTPA TIENT VISIT, [facility], [address] [place], [place], [id number] , [place] tel: [phone] [facility] contraception (chief complaint) Body mass index [BMI] 39.0-39.9, adultEncounter for surveillance of injectable contraceptive 4 [facility]. [address] [place], [place], [id number], [place]. tel:[phone] OFFICE/OUTPA TIENT VISIT, [facility], [address] [place], [place], [id number] , [place] tel:[phone] [facility] annual exam (chief complaint) Encounter for gynecological examination (general) (routine) without abnormal findingsEncoun ter for surveillance of injectable contraceptiveB francisca mass index [BMI] 37.0-37.9, adult 3 [facility]. [address] [place] [address], [id number], [place]. tel:[phone] OFFICE/OUTPA TIENT VISIT, [facility], [address] [place], [place], [id number] , [place] tel:[phone] [facility] contraception (chief complaint) Encounter for screening mammogram for Ca of breastEncounte r for surveillance of injectable contraceptive 3 [facility] [address] [place], [place], [id number], [place]. tel:[phone] OFFICE/OUTPA TIENT VISIT, [facility], [address] [place], [place], [id number] , [place] tel:[phone] [facility] contraception (chief complaint) Encounter for surveillance of injectable contraceptiveB francisca mass index [BMI] 39.0-39.9, adult 3 [facility]. [address] [place], [place], [id number], [place]. tel:[phone] OFFICE/OUTPA TIENT VISIT, [facility], [address], [place], [id number] , [place] tel:[phone] [facility] contraception (chief complaint) Encounter for surveillance of injectable contraceptiveB francisca mass index [BMI]40.0-44.9 , adult 3 [facility]. [address] [place], [place], [id number], [place]. tel:[phone] OFFICE/OUTPA TIENT VISIT, [facility], [address], [place], [id number] , [place] tel:[phone] [facility] contraception (chief complaint) Encounter for surveillance of injectable contraceptiveB francisca mass index [BMI]40.0-44.9 , adult 2 [facility]. [address] [place], [place], [id number], [place]. tel:[phone] OFFICE/OUTPA TIENT VISIT, [facility], [address] [place], [place], [id number] , [place] tel:[phone] [facility] annual exam (chief complaint) Encounter for gynecological examination (general) (routine) without abnormal findingsBody mass index [BMI] 38.0-38.9, adultEncounter for STD screeningOther problem related to lifestyleEncou nter for surveillance of injectable contraceptiveE ncounter for screening mammogram for Ca of breast 2 [facility]. [address] [place], [place], [id number], [place]. tel:[phone] OFFICE/OUTPA TIENT VISIT, [facility], [address] [place], [place], [id number] , [place] tel:[phone] [facility] contraception (chief complaint) Encounter for surveillance of injectable contraceptiveB francisca mass index [BMI] 37.0-37.9, adult 2 [facility]. [address] [place], [place], [id number], [place]. tel:[phone] OFFICE/OUTPA TIENT VISIT, [facility], [address] [place], [place], [id number] , [place] tel:[phone] [facility] contraception (chief complaint) Encounter for surveillance of injectable contraceptiveB francisca mass index [BMI] 39.0-39.9, adult 2 [facility]. [address] [place], [place], [id number], [place]. tel:[phone] OFFICE/OUTPA TIENT VISIT, [facility], [address], [place], [id number] , [place] tel:[phone] [facility] contraception (chief complaint) Body mass index [BMI] 39.0-39.9, adultEncounter for surveillance of injectable contraceptive 2 [facility]. [address] [place], [place], [id number], [place]. tel:[phone] [facility], [address], [place], [id number] , [place] tel:+ [phone] [facility] No Information 1 Gera Melgoza. [address] [place], [place], [id number], [place]. tel:[phone] OFFICE/OUTPA TIENT VISIT, [facility], [address], [place], [id number] , [place] tel: [phone] [facility] contraception (chief complaint) Encounter for surveillance of injectable contraceptiveB francisca mass index [BMI]40.0-44.9 , adult 1 [facility]. [address] [place], [place], [id number], [place]. tel:[phone] OFFICE/OUTPA TIENT VISIT, [facility], [address], [place], [id number] , [place] tel: [phone] [facility] annual exam (chief complaint) Encounter for gynecological examination (general) (routine) without abnormal findingsEncoun ter for screening mammogram for cancer of breastEncounte r for surveillance of injectable contraceptiveB francisca mass index [BMI] 39.0-39.9, adult 1 [facility]. [address] [place], [place], [id number], [place]. tel:[phone] OFFICE/OUTPA TIENT VISIT, [facility], [address] [place], [place], [id number] , [place] tel: [phone] [facility] contraception (chief complaint) Encounter for surveillance of injectable contraceptiveB francisca mass index [BMI] 39.0-39.9, adult 1 [facility]. [address] [place], [place], [id number], [place]. tel:[phone] OFFICE/OUTPA TIENT VISIT, [facility], [address], [place], [id number] , [place] tel: [phone] [facility] contraception (chief complaint) Encounter for surveillance of injectable contraceptiveB francisca mass index [BMI]40.0-44.9 , adult 1 [facility]. [address] [place], [place], [id number], [place]. tel:[phone] OFFICE/OUTPA TIENT VISIT, [facility], [address], [place], [id number] , [place] tel: [phone] [facility] contraception (chief complaint) Body mass index [BMI]40.0-44.9 , adultEncounter for surveillance of injectable contraceptive 0 [facility]. [address] [place], [place], [id number], [place]. tel:[phone] OFFICE/OUTPA TIENT VISIT, [facility], [address] [place], [place], [id number] , [place] tel: [phone] [facility] contraception (chief complaint) Body mass index (BMI) 40.0-44.9, adultEncounter for surveillance of injectable contraceptive 0 [facility]. [address] [place], [place], [id number], [place]. tel:[phone] OFFICE/OUTPA TIENT VISIT, 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 [address] [place] [address], [id number], [place]. tel:[phone] [facility], [address] [place] [address], [id number] , [place] tel: [phone] [facility] Body mass index (BMI) 39.0-39.9, adultEncounter for surveillance of injectable contraceptive Dec-0 - 0 [facility]. [address] [place], [place], [id number], [place]. tel:[phone] OFFICE/OUTPA TIENT VISIT, [facility], [address] [place], [place], [id number] , [place] tel:+ [phone] [facility] contraception (chief complaint) Encounter for surveillance of injectable contraceptiveB francisca mass index (BMI) 39.0-39.9, adult - 0 [facility]. [address] [place], [place], [id number], [place]. tel:[phone] OFFICE/OUTPA TIENT VISIT, [facility], [address] [place], [place], [id number] , [place] tel:+ [phone] [facility] contraception (chief complaint) Encounter for surveillance of injectable contraceptiveB francisca mass index (BMI) 37.0-37.9, adult 9 [facility]. [address] [place] [address], [id number], [place]. tel:[phone] OFFICE/OUTPA TIENT VISIT, [facility], [address] [place] [address], [id number] , [place] tel:+ [phone] [facility] contraception (chief complaint) Body mass index (BMI) 36.0-36.9, adultEncounter for surveillance of injectable contraceptive 9 [facility]. [address] [place], [place], [id number], [place]. tel:[phone] OFFICE/OUTPA TIENT VISIT, [facility], [address] [place] [address], [id number] , [place] tel:[phone] [facility] annual exam (chief complaint) Encntr for meat inspector exam (general) (routine) w/o abn findingsBody mass index (BMI) 35.0-35.9, adultEncounter for STD screeningEncou nter for surveillance of injectable contraceptiveO ther problem related to lifestyle 9 [facility]. [address] [place], [place], [id number], [place]. tel:[phone] OFFICE/OUTPA TIENT VISIT, [facility], [address] [place], [place], [id number] , [place] tel: [phone] [facility] contraception (chief complaint) Body mass index (BMI) 34.0-34.9, adultEncounter for surveillance of injectable contraceptive 9 [facility]. [address] [place], [place], [id number], [place]. tel:[phone] OFFICE/OUTPA TIENT VISIT, [facility], [address] [place], [place], [id number] , [place] tel: [phone] [facility] contraception (chief complaint) Encounter for surveillance of injectable contraceptiveB francisca mass index (BMI) 32.0-32.9, adult 8 [facility]. [address] [place], [place], [id number], [place]. tel:[phone] OFFICE/OUTPA TIENT VISIT, [facility], [address], [place], [id number] , [place] tel:[phone] [facility] contraception (chief complaint) Encounter for surveillance of injectable contraceptiveB francisca mass index (BMI) 30.0-30.9, adult 8 [facility]. [address] [place], [place], [id number], [place]. tel:[phone] [facility], [address], [place], [id number] , [place] tel:+ [phone] [facility] contraception (chief complaint) Encounter for surveillance of injectable contraceptiveB francisca mass index (BMI) 30.0-30.9, adult 8 [facility]. [address] [place], [place], [id number], [place]. tel:[phone] [facility], [address], [place], [id number] , [place] tel: [phone] [facility] No Information 8 Visci DO Brody. [address] [place], [place], [id number], [place]. tel: [phone] OFFICE/OUTPA TIENT VISIT, EST [facility], [address], [place], [id number] , [place] tel: [phone] [facility] contraception (chief complaint) No Information 8 [facility]. [address] [place], [place], [id number], [place]. tel:[phone] PREV VISIT, EST, AGE 40-64 [facility], [address] [place] [address], [id number] , [place] tel: [phone] [facility] annual exam (chief complaint) Encntr for meat inspector exam (general) (routine) w/o abn findingsEncoun ter for screening mammogram for cancer of breastEncounte r for STD screeningOther problem related to lifestyleEncou nter for surveillance of injectable contraceptiveB francisca mass index (BMI) 30.0-30.9, adult Apr-2 8 [facility]. [address] [place], [place], [id number], [place]. tel: [phone] OFFICE/OUTPA TIENT VISIT, [facility], [address], [place], [id number] , [place] tel: [phone] [facility] contraception (chief complaint) Encounter for surveillance of injectable contraceptive Oct- 8 [facility]. [address], [place], [id number], [place]. tel:[phone] OFFICE/OUTPA TIENT VISIT, [facility], [address] [place] [address], [id number] , [place] tel: [phone] [facility] contraception (chief complaint) Encounter for surveillance of injectable contraceptive 7 [facility]. [address], [place], [id number], [place]. tel:[phone] OFFICE/OUTPA TIENT VISIT, [facility], [address], [place], [id number] , [place] tel: [phone] [facility] contraception (chief complaint) Encounter for surveillance of injectable contraceptive 7 [facility]. [address], [place], [id number], [place]. tel:[phone] OFFICE/OUTPA TIENT VISIT, [facility], [address], [place], [id number] , [place] tel: [phone] [facility] contraception (chief complaint) Encounter for surveillance of injectable contraceptive [facility]. [address], [place], [id number], [place]. tel:[phone] OFFICE/OUTPA TIENT VISIT, [facility], [address], [place], [id number] , [place] tel: [phone] [facility] Cryo follow-up (chief complaint) Condyloma acuminatum Dec- 7 Sandy Kim. [address], [place], [id number], [place]. tel:[phone] OFFICE/OUTPA TIENT VISIT, [facility], [address], [place], [id number] , [place] tel: [phone] [facility] cyrotherapy (chief complaint) Condyloma acuminatum Dec-0 7 Sandy Kim. [address], [place], [id number], [place]. tel:[phone] PREV VISIT, [facility], AGE 18-39 [facility], [address], [place], [id number] , [place] tel: [phone] [facility] annual exam (chief complaint) Encounter for surveillance of injectable contraceptive- well woman with abnormal findingEncount er for STD screeningOther problem related to lifestyleCondy amy acuminatum 7 [facility]. [address], [place], [id number], [place]. tel:[phone] OFFICE/OUTPA TIENT VISIT, [facility], [address], [place], [id number] , [place] tel:[phone] [facility] contraception (chief complaint) Encounter for surveillance of injectable contraceptive 7 [facility]. [address], [place], [id number], [place]. tel:[phone] OFFICE/OUTPA TIENT VISIT, [facility], [address], [place], [id number] , [place] tel: [phone] [facility] contraception (chief complaint) Encounter for surveillance of injectable contraceptive 6 [facility]. [address], [place], [id number], [place]. tel:[phone] OFFICE/OUTPA TIENT VISIT, [facility], [address], [place], [id number] , [place] tel:[phone] [facility] contraception (chief complaint) Encounter for surveillance of injectable contraceptive 6 [facility]. [address], [place], [id number], [place]. tel:[phone] OFFICE/OUTPA TIENT VISIT, [facility], [address], [place], [id number] , [place] tel:[phone] [facility] contraception (chief complaint) Encounter for surveillance of injectable contraceptive 6 [facility]. [address], [place], [id number], [place]. 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 [address], [place], [id number], [place]. tel:[phone] OFFICE/OUTPA TIENT VISIT, [facility], [address], [place], [id number] , US tel: [phone] [facility] contraception (chief complaint) Encounter for surveillance of injectable contraceptive 5 [facility]. [address], [place], [id number], [place]. tel:[phone] OFFICE/OUTPA TIENT VISIT, [facility], [address] [place] [address], [id number] , US tel: [phone] [facility] contraception (chief complaint) Other specified contraceptive management 5 [facility]. [address], [place], [id number], [place]. tel:[phone] OFFICE/OUTPA TIENT VISIT, [facility], [address], [place], [id number] , US tel: [phone] [facility] Depo/supply (chief complaint) Other specified contraceptive management 5 [facility]. [address], [place], [id number], [place]. tel:[phone] OFFICE/OUTPA TIENT VISIT, [facility], [address], [place], [id number] , [place] tel: [phone] [facility] No Information 5 [facility]. [address], [place], [id number], [place]. tel:[phone] OFFICE/OUTPA TIENT VISIT, [facility], [address], [place], [id number] , US tel: [phone] [facility] Other specified contraceptive management Mar-1 0-201 5 Hank [facility]. [address], [place], [id number], [place]. tel:[phone] OFFICE/OUTPA TIENT VISIT, [facility], [address], [place], [id number] , [place] tel: [phone] [facility] annual visit (chief complaint)trevon h control--Depo (chief complaint) Influenza VaccineGynecol ogical ExaminationOth er specified contraceptive management 7- 4 [facility]. [address], [place], [id number], [place]. tel:[phone] OFFICE/OUTPA TIENT VISIT, [facility], [address], [place], [id number] , [place] tel: [phone] [facility] supply visit / depo (chief complaint) Other specified contraceptive management Oct-0 1-201 4 [facility]. [address], [place], [id number], [place]. tel:[phone] OFFICE/OUTPA TIENT VISIT, [facility], [address], [place], [id number] , US tel: [phone] [facility] supply visit/ depo (chief complaint) Other specified contraceptive management Sergio-0 9-201 4 [facility]. [address], [place], [id number], [place]. tel:[phone] OFFICE/OUTPA TIENT VISIT, [facility], [address], [place], [address] , [place] tel: [phone] [facility] control-Depo (chief complaint) Other specified contraceptive management Apr-2 2-201 4 [facility]. [address], [place], [id number], [place]. tel:[phone] OFFICE/OUTPA TIENT VISIT, [facility], [address], [place], [id number] , US tel: [phone] [facility] supply visit / depo (chief complaint) Surveillance of other contraceptive method 4 Gera Melgoza. [address], [place], [id number], [place]. tel:[phone] [facility], [address], [place], [id number] , [place] tel: [phone] [facility] annual visit (chief complaint) Gynecological ExaminationGen eral counseling on initiation of other contraceptive measuresOther specified contraceptive management 3 Jairon Lopez. [address] [place], [address], [place]. tel:[phone] OFFICE/OUTPA TIENT VISIT, [facility], [address], [place], [id number] , [place] tel: [phone] [facility] depo (chief complaint) Surveillance of other contraceptive method 3 Joshua Owen. [address], [place], [address], [place]. tel:[phone] OFFICE/OUTPA TIENT VISIT, [facility], [address], [place], [address] , US tel: [phone] [facility] depo (chief complaint) Surveillance of other contraceptive method 3 Joshua Owen. [address], [place], [address], [place]. tel:[phone] OFFICE/OUTPA TIENT VISIT, [facility], [address], [place], [id number] , US tel:[phone] [facility] No Information 3 Joshua Owen. [address], [place], [id number], [place]. tel:[phone] OFFICE/OUTPA TIENT VISIT, [facility], [address], [place], [address] , [place] tel: [phone] [facility] No Information 2 Jessica Marcum. [address], [place], [id number], [place]. OFFICE/OUTPA TIENT VISIT, [facility], [address], [place], [address] , [place] tel: [phone] [facility] No Information 2 Lamp Lexie. [address], [place], [id number], [place]. tel:[phone] [facility], [address], [place], [id number] , [place] tel: [phone] [facility] No Information 2 Lamp Lexie. [address], [place], [address], [place]. tel:[phone] OFFICE/OUTPA TIENT VISIT, [facility], [address], [place], [address] , US tel: [phone] [facility] No Information 2 Lamp Lexie. [address], [place], [address]86[address], [place]. tel:[phone] OFFICE/OUTPA TIENT VISIT, [facility], [address], [place], [id number] , US tel: [phone] [facility] No Information 2 Lamp Lexie. [address], [place], [address], [place]. tel:[phone] OFFICE/OUTPA TIENT VISIT, [facility], [address], [place], [address] , US tel: [phone] [facility] No Information 1 Gera DO Brody. [address], [place], [id number], [place]. tel:[phone] OFFICE/OUTPA TIENT VISIT, [facility], [address], [place], [id number] , [place] tel: [phone] [facility] No Information 1 Visci DO Brody. [address], [place], [address], [place]. tel:[phone] PREV VISIT, NEW, AGE 18-39 [facility], [address], [place], [id number] , [place] tel: [phone] [facility] No Information 1 Lamp Lexie. [address], [place], [id number], [place]. tel:[phone] OFFICE/OUTPA TIENT VISIT, [facility], [address], [place], [address] , US tel: [phone] [facility] No Information 1 Visci DO Brody. [address], [place], 899457525, [place]. tel:[phone] OFFICE/OUTPA TIENT VISIT, [facility], [address], [place], [address]10 , US tel: [phone] [facility] No Information 0 Visci DO Brody. [address], [place], 165214801, [place]. tel:[phone] OFFICE/OUTPA TIENT VISIT, [facility], [address], [place], [address]79[address] , US tel: [phone] [facility] No Information 2 - 0 Visci DO Brody. [address], [place], [id number], [place]. tel:[phone] OFFICE/OUTPA TIENT VISIT, [facility], [address], [place], [address] , [place] tel: [phone] [facility] No Information -201 0 Visci DO Brody. [address], [place], [id number], [place]. tel:[phone] PREV VISIT, [facility], AGE 18-39 [facility], [address], [place], 758[address] , [place] tel: [phone] [facility] No Information 6-201 0 Lamp Lexie. [address], [place], [address]23, [place]. tel:[phone] OFFICE/OUTPA TIENT VISIT, [facility], [address], [place], [address] , [place] tel: [phone] [facility] No Information 0 Visci DO Brody. [address], [place], 117[address], [place]. tel:[phone] [facility], [address], [place], 844[address]1787 , [place] tel: [phone] [facility] No Information 0 Visci DO Skinner. [address], [place], [id number], [place]. tel:[phone] OFFICE/OUTPA TIENT VISIT, [facility], [address], [place], [address] , US tel: [phone] [facility] No Information 9 Leah Dozier. [address], [place], [address]. tel:[phone] [facility], [address], [place], [address] , [place] tel: [phone] [facility] No Information 9 Visci DO Skinner. [address], [place], [address], [place]. tel:[phone] OFFICE/OUTPA TIENT VISIT, [facility], [address], [place], [address] , [place] tel: [phone] [facility] No Information 2 9 No Information OFFICE/OUTPA TIENT VISIT, [facility], [address], [place], [id number] , [place] tel: [phone] [facility] No Information 4200 9 No Information OFFICE/OUTPA TIENT VISIT, [facility], [address], [place], [address]19 , [place] tel: [phone] [facility] No Information 2 9 No Information OFFICE/OUTPA TIENT VISIT, [facility], [address], [place], [address]3728 , [place] tel: [phone] [facility] No Information 9 Sandy Julio. [address] [place] [address], [id number], [place]. [phone] [facility], [address], [place], 4079[address] , [place] tel: [phone] [facility] No Information 8-200 8 No Information [facility], [address], [place], [id number] , [place] tel: [phone] Flu No Information 3 8 Gera Melgoza. [address], [place], [address]887, [place]. [phone] OFFICE/OUTPA TIENT VISIT, [facility], [address], [place], [address]98 , [place] tel: [phone] [facility] No Information 3200 8 Leah Dozier. [address] [place] [address], [id number]. tel:[phone] Family History Family Member Type Diagnosis Age At Onset Problem (finding) Family history of heart disease Brother Problem (finding) Alive and well Father Problem (finding) hypercholesterolemia Problem (finding) Family history of hyper tension Brother Problem (finding) depression Father Problem (finding) alcoholism Brother Problem (finding) hypercholesterolemia Father Problem (finding) Hepatitis C Father Problem (finding) depression Problem (finding) Family history of psych iatric problems Father Problem (finding) epilepsy Problem (finding) Family history of Diabe audelia mellitus Father Problem (finding) Diabetes mellitus Brother Problem (finding) Irritable bowel syndrom e Mother Problem (finding) hypertension Mother Problem (finding) Alive and well Brother Problem (finding) hypertension Father Problem (finding) congestive heart failur e Problem (finding) Family history of strok e Father Problem (finding) hypertension Brother Problem (finding) asthma Brother Problem (finding) alcoholism Father Problem (finding) seizure disorder Immunizations Vaccine Date Status Comments Flulaval/ Fluarix administered Source: Ne w Immunization Record Hep A (adult) administered Source: New Im munization Record Flu (split) (3 yrs or older) administered Source: New Immunization Record Flu (split) (3 yrs or older) administered Source: New Immunization Record Flu (split) (3 yrs or older) administered Source: New Immunization Record Flu (split) (3 yrs or older) administered Source: New Immunization Record Flu (split) (3 yrs or older) administered Source: New Immunization Record Flu (split) (3 yrs or older) administered Source: New Immunization Record Flu (split) (3 yrs or older) administered Source: New Immunization Record Flu (split) (3 yrs or older) administered Source: New Immunization Record Flu (split) (3 yrs or older) administered Source: New Immunization Record Flu (split) (3 yrs or older) administered Source: New Immunization Record Flu (split) (3 yrs or older) administered Source: New Immunization Record Flu (split) (3 yrs or older) administered Source: New Immunization Record Flu (split) (3 yrs or older) administered Source: New Immunization Record Payers Payer name Insurance type Covered democrat ID Authoriza tion(s) Fred Medicare Advantage MB [id number] Medicaid Crossover [id number] Medicare PPS MB [id number] Medicare PPS [id number] Social History Type Description Quantity Date Captured Comments Alcohol Use Details Unknown Caffeine Use Details Unknown Tobacco Use Status No Information Smoking Status No Information Sex Female Sexual Orientation Straight or heterosexual Gender Identity Female Vital Signs Date / Time: Height Weight BMI Pulse Rate Blood Pressure Temperature Respiratory Rate Body Surface Area Head Circumference Head Circ. Percentile Wt./Brayan. Percentile BMI percentile Pulse Ox Inhaled Ox 1:17 PM 65.00 in 111.130 kg (245.00 lbs) 40.7 7 kg/m eter (2) 76 /min 126/74 mm[Hg] 16 /min 97 % Chief Complaint And Reason For Visit No Information Reason For Referral Reason For Referral No Information Plan Of Treatment Date Type Action Status Goal Breast exam. Due on due Goal HPV. Due on due Goal Lipid panel. Due on due Goal Unhealthy drug u se screening. Due on due Goal Mammogram. Due on due Goal Hepatitis C scre ening. Due on due Goal PRAPARE ASSESSMENT. Due on due Goal Tdap. Due on due Goal Influenza vaccine. Due on due Goal Tdap Vaccine. Due on 2024 due Goal Depression scree marvin. Due on due Goal Unhealthy drug u se screening. Due on due Goal Hepatitis C scre ening. Due on due Goal Lipid panel. Due on due Goal Tdap Vaccine. Due on 2024 due Goal PRAPARE ASSESSMENT. Due on A due Goal Tdap. Due on due Goal Mammogram. Due on due Goal HPV. Due on due Goal Influenza vaccine. Due on due Goal Depression scree marvin. Due on due Goal Breast exam. Due on due Goal Dietary manageme nt education, guidance, and counseling completed Goal Unhealthy drug u se screening. Due on due Goal Hepatitis C scre ening. Due on due Goal Tdap Vaccine. Due on 2024 due Goal PRAPARE ASSESSMENT. Due on due Goal Lipid panel. Due on due Goal Tdap. Due on due Goal Depression scree marvin. Due on due Goal Mammogram. Due on due Goal Influenza vaccine. Due on due Goal Breast exam. Due on due Goal HPV. Due on due Goal Dietary manageme nt education, guidance, and counseling completed Goal Dietary manageme nt education, guidance, and counseling completed Goal Influenza vaccine. Due on due Goal Lipid panel. Due on due Goal PRAPARE ASSESSMENT. Due on due Goal Tdap Vaccine. Due on 2024 due Goal Hepatitis C scre ening. Due on due Goal Tdap. Due on due Goal Mammogram. Due on due Goal Breast exam. Due on due Goal Unhealthy drug u se screening. Due on due Goal HPV. Due on due Goal Depression scree marvin. Due on due Goal Breast exam. Due on due Goal Hepatitis C scre ening. Due on due Goal Unhealthy drug u se screening. Due on due Goal Tdap Vaccine. Due on 2023 due Goal Lipid panel. Due on due Goal Tdap. Due on due Goal Mammogram. Due on due Goal HPV. Due on due Goal Depression scree marvin. Due on due Goal PRAPARE ASSESSMENT. Due on due Goal Influenza vaccine. Due on due Goal Dietary manageme nt education, guidance, and counseling completed Goal Unhealthy drug u se screening. Due on due Goal PRAPARE ASSESSMENT. Due on due Goal Tdap Vaccine. Due on 2023 due Goal Depression scree marvin. Due on due Goal Tdap. Due on due Goal Lipid panel. Due on due Goal HPV. Due on due Goal Mammogram. Due on due Goal Influenza vaccine. Due on due Goal Hepatitis C scre ening. Due on due Goal Breast exam. Due on due Goal Tdap. Due on due Goal Tdap Vaccine. Due on 2023 due Goal PRAPARE ASSESSMENT. Due on A due Goal Influenza vaccine. Due on due Goal Mammogram. Due on due Goal Depression scree marvin. Due on due Goal Breast exam. Due on due Goal Lipid panel. Due on due Goal Hepatitis C scre ening. Due on due Goal Unhealthy drug u se screening. Due on due Goal HPV. Due on due Goal HPV. Due on due Goal Influenza vaccine. Due on due Goal Mammogram. Due on due Goal Lipid panel. Due on due Goal Tdap Vaccine. Due on 2023 due Goal Depression scree marvin. Due on due Goal Tdap. Due on due Goal Breast exam. Due on due Goal Hepatitis C scre ening. Due on due Goal PRAPARE ASSESSMENT. Due on due Goal Unhealthy drug u se screening. Due on due Goal Tdap Vaccine. Due on 2023 due Goal PRAPARE ASSESSMENT. Due on due Goal Tdap. Due on due Goal Hepatitis C scre ening. Due on due Goal Depression scree marvin. Due on due Goal Lipid panel. Due on due Goal Unhealthy drug u se screening. Due on due Goal Influenza vaccine. Due on due Goal HPV. Due on due Goal Breast exam. Due on due Goal Mammogram. Due on due Goal Hepatitis C scre ening. Due on due Goal Tdap Vaccine. Due on 2023 due Goal Breast exam. Due on due Goal Tdap. Due on due Goal Influenza vaccine. Due on due Goal Mammogram. Due on due Goal Unhealthy drug u se screening. Due on due Goal HPV. Due on due Goal Lipid panel. Due on due Goal PRAPARE ASSESSMENT. Due on due Goal Depression scree marvin. Due on due Goal Dietary manageme nt education, guidance, and counseling completed Goal Mammogram. Due on 8 due Goal PRAPARE ASSESSMENT. Due on O due Goal HPV. Due on due Goal Tdap Vaccine. Due on 2022 due Goal Depression scree marvin. Due on due Goal Unhealthy drug u se screening. Due on due Goal Tdap. Due on due Goal Influenza vaccine. Due on due Goal Lipid panel. Due on due Goal Hepatitis C scre ening. Due on due Goal Breast exam. Due on due Goal Dietary manageme nt education, guidance, and counseling completed Goal Tdap Vaccine. Due on 2022 due Goal Lipid panel. Due on due Goal Mammogram. Due on 3 due Goal Depression scree marvin. Due on due Goal Influenza vaccine. Due on due Goal Tdap. Due on due Goal PRAPARE ASSESSMENT. Due on A due Goal Breast exam. Due on due Goal Lipid panel. Due on due Goal Influenza vaccine. Due on due Goal Tdap. Due on due Goal Breast exam. Due on due Goal PRAPARE ASSESSMENT. Due on due Goal Mammogram. Due on due Goal Depression scree marvin. Due on due Goal Tdap Vaccine. Due on 2022 due Goal Dietary manageme nt education, guidance, and counseling completed Goal Mammogram. Due on due Goal Depression scree marvin. Due on due Goal Influenza vaccine. Due on due Goal Lipid panel. Due on due Goal Tdap. Due on due Goal Breast exam. Due on due Goal Tdap Vaccine. Due on 2022 due Goal PRAPARE ASSESSMENT. Due on due Goal RLP. Due on due Goal Dietary manageme nt education, guidance, and counseling completed Goal Depression scree marvin. Due on due Goal Breast exam. Due on due Goal Lipid panel. Due on due Goal RLP. Due on due Goal Tdap. Due on due Goal PRAPARE ASSESSMENT. Due on due Goal Mammogram. Due on due Goal Influenza vaccine. Due on due Goal Dietary manageme nt education, guidance, and counseling completed Goal RLP. Due on due Goal Lipid panel. Due on due Goal Tdap. Due on due Goal Influenza vaccine. Due on due Goal PRAPARE ASSESSMENT. Due on due Goal Breast exam. Due on due Goal Depression scree marvin. Due on due Goal Mammogram. Due on due Goal Dietary manageme nt education, guidance, and counseling completed Goal Influenza vaccine. Due on due Goal Lipid panel. Due on due Goal Depression scree marvin. Due on due Goal Mammogram. Due on due Goal RLP. Due on due Goal Tdap. Due on due Goal Breast exam. Due on due Goal Dietary manageme nt education, guidance, and counseling completed Goal Tdap. Due on due Goal Breast exam. Due on due Goal Influenza vaccine. Due on due Goal Depression scree marvin. Due on due Goal RLP. Due on due Goal Mammogram. Due on due Goal Dietary manageme nt education, guidance, and counseling completed Goal Mammogram. Due on due Goal Influenza vaccine. Due on due Goal Depression scree marvin. Due on due Goal Breast exam. Due on due Goal Tdap. Due on due Goal RLP. Due on due Goal Dietary manageme nt education, guidance, and counseling completed Goal Influenza vaccine. Due on due Goal Breast exam. Due on due Goal Depression scree marvin. Due on due Goal RLP. Due on due Goal Tdap. Due on due Goal Mammogram. Due on due Goal RLP. Due on due Goal Tdap. Due on due Goal Breast exam. Due on due Goal Influenza vaccine. Due on due Goal Mammogram. Due on due Goal Depression scree marvin. Due on due Goal Dietary manageme nt education, guidance, and counseling completed Goal Mammogram. Due on due Goal Tdap. Due on due Goal Influenza vaccine. Due on due Goal Depression scree marvin. Due on due Goal RLP. Due on due Goal Breast exam. Due on due Goal Dietary manageme nt education, guidance, and counseling completed Goal Influenza vaccine. Due on due Goal Breast exam. Due on due Goal Tdap. Due on due Goal Depression scree marvin. Due on due Goal Mammogram. Due on due Goal RLP. Due on due Goal Dietary manageme nt education, guidance, and counseling completed Goal Depression scree marvin. Due on due Goal Influenza vaccine. Due on due Goal Breast exam. Due on 021 due Goal Tdap. Due on due Goal Mammogram. Due on due Goal RLP. Due on due Goal Dietary manageme nt education, guidance, and counseling completed Goal Influenza vaccine. Due on due Goal Tdap. Due on due Goal Mammogram. Due on due Goal RLP. Due on due Goal Breast exam. Due on 020 due Goal Depression scree marvin. Due on due Goal Depression scree marvin. Due on due Goal RLP. Due on due Goal Mammogram. Due on 2 due Goal Influenza vaccine. Due on due Goal Tdap. Due on due Goal Breast exam. Due on 020 due Goal Dietary manageme nt education, guidance, and counseling completed Goal Mammogram. Due on 0 due Goal RLP. Due on due Goal Tdap. Due on due Goal Breast exam. Due on due Goal Influenza vaccine. Due on due Goal Depression scree marvin. Due on due Goal Dietary manageme nt education, guidance, and counseling completed Goal Influenza vaccine. Due on due Goal Depression scree marvin. Due on due Goal Mammogram. Due on 0 due Goal Tdap. Due on due Goal RLP. Due on due Goal Breast exam. Due on due Goal Dietary manageme nt education, guidance, and counseling completed Goal Mammogram. Due on 0 due Goal Depression scree marvin. Due on due Goal Tdap. Due on due Goal Breast exam. Due on due Goal Influenza vaccine. Due on due Goal RLP. Due on due Goal Dietary manageme nt education, guidance, and counseling completed Goal Breast exam. Due on 019 due Goal RLP. Due on due Goal Influenza vaccine. Due on due Goal Tdap. Due on due Goal Depression scree marvin. Due on due Goal Mammogram. Due on 0 due Goal Dietary manageme nt education, guidance, and counseling completed Goal Mammogram. Due on 0 due Goal Depression scree marvin. Due on due Goal RLP. Due on due Goal Tdap. Due on due Goal Influenza vaccine. Due on due Goal Breast exam. Due on due Goal Dietary manageme nt education, guidance, and counseling completed Goal RLP. Due on due Goal Mammogram. Due on 0 due Goal Breast exam. Due on due Goal Influenza vaccine. Due on due Goal Depression scree marvin. Due on due Goal Tdap. Due on due Goal Dietary manageme nt education, guidance, and counseling completed Goal Influenza vaccine. Due on due Goal Depression scree marvin. Due on due Goal Tdap. Due on due Goal Mammogram. Due on 0 due Goal Breast exam. Due on due Goal RLP. Due on due Goal Dietary manageme nt education, guidance, and counseling completed Goal Mammogram. Due on 0 due Goal RLP. Due on due Goal Depression scree marvin. Due on due Goal Tdap. Due on due Goal Influenza vaccine. Due on due Goal Breast exam. Due on due Goal Dietary manageme nt education, guidance, and counseling completed Goal Breast exam. Due on due Goal Mammogram. Due on 0 due Goal Tdap. Due on due Goal RLP. Due on due Goal Influenza vaccine. Due on due Goal Depression scree marvin. Due on due Goal Dietary manageme nt education, guidance, and counseling completed Goal Influenza vaccine. Due on due Goal RLP. Due on due Goal Tdap. Due on due Goal Influenza vaccine. Due on due Goal RLP. Due on due Goal Tdap. Due on due Goal Dietary manageme nt education, guidance, and counseling completed Goal Influenza vaccine. Due on due Goal Tdap. Due on due Goal RLP. Due on due Goal Dietary manageme nt education, guidance, and counseling completed Goal Influenza vaccine. Due on due Goal Tdap. Due on due Goal RLP. Due on due Goal Influenza vaccine. Due on due Goal Tdap. Due on due Goal RLP. Due on due Goal Influenza vaccine. Due on due Goal Tdap. Due on due Goal RLP. Due on due Goal Influenza vaccine. Due on due Goal Tdap. Due on due Goal RLP. Due on due Goal Tdap. Due on due Goal Td vaccine. Due on due Goal Influenza vaccine. Due on due Goal Influenza vaccine. Due on due Goal Tdap. Due on due Goal Td vaccine. Due on due Goal Td vaccine. Due on due Goal Tdap. Due on due Goal Influenza vaccine. Due on due Goal Tdap. Due on due Goal Influenza vaccine. Due on due Goal Td vaccine. Due on due Goal Breast exam. Due on due Goal Breast exam. Due on due Goal Tdap. Due on due Goal Td vaccine. Due on 16 due Goal Tdap. Due on due Goal Breast exam. Due on due Goal Td vaccine. Due on 16 due Goal Breast exam. Due on due Goal Td vaccine. Due on 16 due Goal Tdap. Due on due Goal Td vaccine. Due on 16 due Goal Breast exam. Due on due Goal Tdap. Due on due Goal Td vaccine. Due on 15 due Goal Depression scree marvin. Due on due Goal Tdap. Due on due Goal Tdap. Due on due Goal Td vaccine. Due on 15 due Goal Depression scree marvin. Due on due Goal Td vaccine. Due on 15 due Goal Tdap. Due on due Goal Depression scree marvin. Due on due Goal Depression scree marvin. Due on due Goal Td vaccine. Due on 15 due Goal Tdap. Due on due Goal PAP. Due on due Goal Breast exam. Due on 013 due Referral Ordered: Jesus Camacho MD timeframe: 4 Weeks. (related to Body mass index [BMI] 40.0-44.9, adult) ordered Referral Ordered: Jesus Camacho MD timeframe: 6 Months. (related to Body mass index [BMI] 40.0-44.9, adult) ordered Appointment Kourtney Novak BOOKED Appointment Kourtney Novak BOOKED Nutrition Recommendation Oral nutritional support completed History Of Present Illness Encounter Date Complaint History Of Prese nt Illness Comments: Hanny gonzalez is here for Depo Provera. Doing well and desires to continue. Does not desire a in the near future. contraception Discussed contra ception with client. The client is currently using Depo-Provera and abstinence. The client desires to remain on current control method. The client is not currently . The client does not desire to be in the next year. Menarche age (Menarche age was 14), Menses (Menses is absent.). quinton alcantara Depo Patient is here for Depo Provera. Doing well and desires to continue. Does not desire a in the near future. annual exam Currently pregna nt: no. : 3. Parity: Term: 2. spontaneous: 1. Livin.Client is not contemplating . The client states using Depo-Provera and abstinence for control. Patient's menses is absent. Negative for dysmenorrhea and menorrhagia. Negative for: breast discharge, breast lump(s), breast pain and breast self exam.Negative for Hormone replacement therapy. The client no longer uses tobacco. The client does drink alcohol. Additional information: Patient is here for annual exam and depo provera. Doing well with Depo Provera and desires to continue at this time.. contraception Discussed contra ception with client. The client is currently using Depo-Provera and abstinence. The client desires to remain on current control method. The client is not currently . The client does not desire to be in the next year. Client denies dysmenorrhea and menorrhagia. Menarche age (Menarche age was 14), Menses (Menses is absent.). Client is not experiencing anxiety, edema and fatigue. dn dn Depo Patient is here for Depo Provera. Doing well and desires to continue. Does not desire a in the near future. Depo Patient is here for Depo Provera. Doing well and desires to continue. Does not desire a in the near future. Depo Patient is here for Depo Provera. Doing well and desires to continue. Does not desire a in the near future. contraception Discussed contra ception with client. The client is currently using Depo-Provera and abstinence. The client desires to remain on current control method. The client is not currently . The client does not desire to be in the next year. Menarche age (Menarche age was 14). Additional information: Patient is here for Depo Provera. 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 Does not desire a in the near future. annual exam Currently pregna nt: no. : 3. Parity: Term: 2. spontaneous: 1. Livin. The client states using Depo-Provera and abstinence for control. Patient's menses is absent. Negative for dysmenorrhea and menorrhagia. Negative for: breast discharge, breast lump(s), breast pain and breast self exam. The client no longer uses tobacco. The client does drink alcohol. Additional information: Patient is here for annual exam and Depo Provera. 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 Doing well with Depo Provera and desires to continue. contraception Patient does not desire in the near future. Doing well with Depo Provera and desires to continue. Patient states she is willing to keep mammogram appt if rescheduled contraception Patient does not desire in the near future. Doing well with Depo Provera and desires to continue. contraception Patient does not desire in the near future. Doing well with Depo Provera and desires to continue. contraception Patient does not desire in the near future. Doing well with Depo Provera and desires to continue. annual exam Currently pregna nt: no. : 3. Parity: Term: 2. spontaneous: 1. Livin. The patient states she uses Depo-Provera and abstinence for control. The patient no longer uses tobacco. She does drink alcohol. Additional information: Patient is here for annual exam. Currently using Depo Provera for BCM and desires to continue at this time. Denies other SOCIAL WORK CASE MANAGER problems.. contraception Patient does not desire in the near future. Doing well with Depo Provera and desires to continue. contraception Patient does not desire in the near future. Doing well with Depo Provera and desires to continue. contraception Patient does not desire in the near future. Doing well with Depo Provera and desires to continue. contraception Patient does not desire in the near future. Doing well with Depo Provera and desires to continue. annual exam Currently pregna nt: no. : 3. Parity: Term: 2. spontaneous: 1. Livin. Patient is not contemplating . The patient states she uses Depo-Provera and abstinence for control. Her menses is absent. Negative for dysmenorrhea and menorrhagia. Negative for: breast discharge, breast lump(s), breast pain and breast self exam. She does drink alcohol. contraception Patient does not desire in the near future. Doing well with Depo Provera and desires to continue. contraception Patient does not desire in the near future. Doing well with Depo Provera and desires to continue. contraception Patient does not desire in the near future. Doing well with Depo Provera and desires to continue. contraception Patient does not desire in the near future. Doing well with Depo Provera and desires to continue. annual exam Currently pregna nt: no. : 2. Parity: Term: 2. Livin. Patient is not contemplating . The patient states she uses Depo-Provera and abstinence for control. Her menses is absent. Negative for dysmenorrhea and menorrhagia. Negative for: breast discharge, breast lump(s), breast pain and breast self exam.Negative for Hormone replacement therapy. The patient no longer uses tobacco. She does drink alcohol. Additional information: Patient is here for her annual exam and Depo Provera. 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 contraception Patient does not desire in the near future. Doing well with Depo Provera and desires to continue. contraception Patient does not desire in the near future. Doing well with Depo Provera and desires to continue. contraception Patient does not desire in the near future. Doing well with Depo Provera and desires to continue. annual exam Currently pregna nt: no. : 2. Parity: Term: 2. Livin. Patient is not contemplating . The patient states she uses Depo-Provera and abstinence for control. Her menses is absent. Negative for dysmenorrhea and menorrhagia. Negative for: breast discharge, breast lump(s), breast pain and breast self exam.Negative for Hormone replacement therapy. The patient no longer uses tobacco. She does drink alcohol. Additional information: Patient is here for annual exam. Has already completed mammogram and result was normal. 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 contraception Patient does not desire in the near future. Doing well with Depo Provera and desires to continue. contraception Patient does not desire in the near future. Doing well with Depo Provera and desires to continue. contraception Patient does not desire in the near future. Doing well with Depo Provera and desires to continue. contraception contraception annual exam Currently pregna nt: no. : 2. Parity: Term: 2. Livin. Patient is not contemplating . The patient states she uses Depo-Provera and abstinence for control. Her menses is absent.Negative for Hormone replacement therapy. The patient no longer uses tobacco. Tobacco cessation has been discussed. She does drink alcohol. Additional information: Patient is here for annual exam and Depo Provera. Desires to continue Depo Provera at this time. 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 States she is managed by a pain management physician. States she would never consider back surgery and desires to treat pain in this manner.. contraception Patient does not desire in the near future. Doing well with Depo Provera and desires to continue. contraception Patient does not desire in the near future. Doing well with Depo Provera and desires to continue. contraception Patient does not desire in the near future. Doing well with Depo Provera and desires to continue. contraception Here for Depo Pr overa. Doing well and desires to continue Cryo follow-up Patient here for cryo follow up from 12/15/16. Patient states the two bumps that were frozen off are gone. No new bumps noted by patient. No burning or pain when urinating. No abnormal discharge. Patient denies condoms. Patient denies smoking. LMP was roughly 17 years ago. Patient is on the depo shot for control. Patient does not want any other testing performed today. 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 Patient recently saw Zulema Mckinney on 12/10/16. Patient noticed two new bumps. One of the bumps are located on labia according to patient and the other is on her lower buttock. No burning or pain when urinating. Patient does not want to be treated for anything else today. Patient does not know when her last menstrual period was. She has been on Depo Provera for 17 years. Not currently sexually active. Just would like the cryotherapy performed. Denies condoms. Denies tobacco usage. Caryl Bernstein RN annual exam Currently pregna nt: no. : 2. Parity: Term: 2. Livin. Patient is not contemplating . The patient states she uses Depo-Provera and abstinence for control. Her menses is absent.Negative for Hormone replacement therapy. Tobacco cessation has been discussed. She does drink alcohol. Additional information: Patietn here for annual exam and depo provera. Doing well with Depo and desirs to continue. States she has a history of condyloma and has a few new ones. Staets TCA does not worka nd she would like to have them frozen off.. contraception Patient here for her depo. Denies concerns. Feels she gets plenty of calcium in her diet. MARY ELLEN Valencia contraception (comments) Doing w ell with Depo Provera and desires to continue. C/o large amount sweating over the last 3 weeks and no reason as to why. Does have a PCP and plans to make a follow up appt. contraception Patient here tod ay for Depo #4 RG. She is not having periods on the Depo. Last annual exam 10/17/15. Patient to return 09/17/16 @ 8:15AM for next Depo. -MARY ELLEN PARKER. contraception Patient here for depo. Denies any concerns at this time. States she is getting enough calcium through her diet. Last annual exam was 10/17/15. Scheduled to return 06/25/16 8am Maxine HYDE contraception Client presents today for Depo Provera, last injection 10/17/15. Reports amenorrhea. Education provided on calcium intake. Denies any problems/concerns at this time. Administered in RG, client tolerated without incident. Next scheduled appt 03/31/16 @ 0800. MARY ELLEN Mcdermott annual exam Currently pregna nt: no. : 2. Parity: Term: 2. Livin. The patient states she uses Depo-Provera for control. The patient does not use tobacco. She does drink alcohol. Additional information: Pt here for annual. Pap and culture today. Desires to continue depo. Consent signed. No concerns today. MARY ELLEN Valencia. contraception Client presents today for Depo Provera. Last injection 04/30/15. Education provided on calcium intake. Client reports getting enough calcium in her diet. Denies any problems/concerns at this time. Reports already receiving her flu vaccine. Administered in RG, client tolerated without incident. Next scheduled appt 10/17/15 @ 0830 for an update/Depo. MARY ELLEN Mcdermott contraception Client presents today for a Depo Provera injection. Last injection 02/06/15. Education provided on calcium intake. Client reports taking calcium supplements. BP 148/82, client reports that she had a "bad night, very anxious. My newphew is the 17 yr old that got hit by the train in [place]. Client has lost >20 lbs, denies any problems/concerns at this time. Next scheduled appt 07/23/15 @0900. MARY ELLEN Mcdermott Depo/supply Client presents today for a Depo on time injection. Client reports taking calcium supplements daily.Denies any problems/concerns at this time. Depo injected into RG. Next scheduled appt 04/30/15 @ 0800. MARY ELLEN Mcdermott Depo Supply Functional Status Date Functional Assessmen t No Information Instructions Date Instruction Additional Infor neymar May continue Depo Pr overa. Encouraged calcium 1000mg QD. Recommend condoms for back up BC and to prevent STDs Related to Depo Provera injection Giving encouragement to exercise Related to Body mass index [BMI] 40.0-44.9, adult Dietary management e ducation, guidance, and counseling Related to Body mass index [BMI] 40.0-44.9, adult Giving encouragement to exercise Related to Body mass index [BMI] 40.0-44.9, adult Dietary management e ducation, guidance, and counseling Related to Body mass index [BMI] 40.0-44.9, adult Giving encouragement to exercise Related to Body mass index [BMI] 40.0-44.9, adult Dietary management e ducation, guidance, and counseling Related to Body mass index [BMI] 40.0-44.9, adult May continue Depo Pr overa. Encouraged calcium 1000mg QD. Recommend condoms for back up BC and to prevent STDs Related to Depo Provera injection Dietary needs education Related to Body mass index [BMI] 40.0-44.9, adult Giving encouragement to exercise Related to Body mass index [BMI] 40.0-44.9, adult May continue Depo Pr overa. Encouraged calcium 1000mg QD. Recommend condoms for back up BC and to prevent STDs Related to Depo Provera injection Encouraged good diet kt intake, exercise and healthy lifestyle choices. Recommend daily multi-vitamin with Folic acid. Understands the need for non-violent partners in a consensual relationship. Patient does not desire a in the near future. Reviewed control options for prevention and desires to continue using Depo ProveraDeclines HIV, RPR and Hep cDeclines vaccines Related to Encounter for gynecological examination (general) (routine) without abnormal findings Giving encouragement to exercise Related to Body mass index [BMI] 40.0-44.9, adult Dietary management e ducation, guidance, and counseling Related to Body mass index [BMI] 40.0-44.9, adult May continue Depo Pr overa. Encouraged calcium 1000mg QD. Recommend condoms for back up BC and to prevent STDs Related to Depo Provera injection Giving encouragement to exercise Related to Body mass index [BMI] 40.0-44.9, adult Dietary needs education Related to Body mass index [BMI] 40.0-44.9, adult May continue Depo Pr overa. Encouraged calcium 1000mg QD. Recommend condoms for back up BC and to prevent STDs Related to Encounter for surveillance of injectable contraceptive Giving encouragement to exercise Related to Body mass index [BMI] 40.0-44.9, adult Dietary needs education Related to Body mass index [BMI] 40.0-44.9, adult May continue Depo Pr overa. Encouraged calcium 1000mg QD. Recommend condoms for back up BC and to prevent STDs Related to Depo Provera injection Giving encouragement to exercise Related to Body mass index [BMI] 40.0-44.9, adult Dietary needs education Related to Body mass index [BMI] 40.0-44.9, adult May continue Depo Pr overa. Encouraged calcium 1000mg QD. Recommend condoms for back up BC and to prevent STDs Related to Encounter for surveillance of injectable contraceptive Giving encouragement to exercise Related to Body mass index [BMI] 39.0-39.9, adult Dietary management e ducation, guidance, and counseling Related to Body mass index [BMI] 39.0-39.9, adult May continue Depo Pr overa. Encouraged calcium 1000mg QD. Recommend condoms for back up BC and to prevent STDs Related to Encounter for surveillance of injectable contraceptive Encouraged monthly B SE. Recommend calcium 1000mg QD. Encouraged good dietary intake and exercise. Laboratory specimens sent to lab. Patient to call in 2 weeks if desires results.Discussed control options and patient desires to continue using Depo Provera Related to Encounter for gynecological examination (general) (routine) without abnormal findings Giving encouragement to exercise Related to Body mass index [BMI] 37.0-37.9, adult Dietary management e ducation, guidance, and counseling Related to Body mass index [BMI] 37.0-37.9, adult May continue Depo Pr overa. Encouraged calcium 1000mg QD. Recommend condoms for back up BC and to prevent STDs Related to Encounter for surveillance of injectable contraceptive May continue Depo Pr overa. Encouraged calcium 1000mg QD. Recommend condoms for back up BC and to prevent STDs Related to Encounter for surveillance of injectable contraceptive Giving encouragement to exercise Related to Body mass index [BMI] 39.0-39.9, adult Dietary management e ducation, guidance, and counseling Related to Body mass index [BMI] 39.0-39.9, adult May continue Depo Pr overa. Encouraged calcium 1000mg QD. Recommend condoms for back up BC and to prevent STDs Related to Encounter for surveillance of injectable contraceptive Giving encouragement to exercise Related to Body mass index [BMI] 40.0-44.9, adult Dietary management e ducation, guidance, and counseling Related to Body mass index [BMI] 40.0-44.9, adult May continue Depo Pr overa. Encouraged calcium 1000mg QD. Recommend condoms for back up BC and to prevent STDs Related to Encounter for surveillance of injectable contraceptive Giving encouragement to exercise Related to Body mass index [BMI] 40.0-44.9, adult Dietary management e ducation, guidance, and counseling Related to Body mass index [BMI] 40.0-44.9, adult May continue Depo Pr overa. Encouraged calcium 1000mg QD. Recommend condoms for back up BC and to prevent STDs Related to Encounter for surveillance of injectable contraceptive Cervical cultures se nt to lab. Patient to call in 1 week for results Related to Encounter for STD screening Encouraged monthly B SE. Recommend calcium 1000mg QD. Encouraged good dietary intake and exercise. Laboratory specimens sent to lab. Patient to call in 2 weeks if desires results.Discussed control options and patient desires to continue Depo Provera Related to Encounter for gynecological examination (general) (routine) without abnormal findings Giving encouragement to exercise Related to Body mass index [BMI] 38.0-38.9, adult Dietary management e ducation, guidance, and counseling Related to Body mass index [BMI] 38.0-38.9, adult May continue Depo Pr overa. Encouraged calcium 1000mg QD. Recommend condoms for back up BC and to prevent STDs Related to Encounter for surveillance of injectable contraceptive Dietary management e ducation, guidance, and counseling Related to Body mass index [BMI] 37.0-37.9, adult Giving encouragement to exercise Related to Body mass index [BMI] 37.0-37.9, adult May continue Depo Pr overa. Encouraged calcium 1000mg QD. Recommend condoms for back up BC and to prevent STDs Related to Encounter for surveillance of injectable contraceptive Giving encouragement to exercise Related to Body mass index [BMI] 39.0-39.9, adult Dietary management e ducation, guidance, and counseling Related to Body mass index [BMI] 39.0-39.9, adult May continue Depo Pr overa. Encouraged calcium 1000mg QD. Recommend condoms for back up BC and to prevent STDs Related to Encounter for surveillance of injectable contraceptive Giving encouragement to exercise Related to Body mass index [BMI] 39.0-39.9, adult Dietary management e ducation, guidance, and counseling Related to Body mass index [BMI] 39.0-39.9, adult May continue Depo Pr overa. Encouraged calcium 1000mg QD. Recommend condoms for back up BC and to prevent STDs Related to Encounter for surveillance of injectable contraceptive Giving encouragement to exercise Related to Body mass index [BMI] 40.0-44.9, adult Dietary management e ducation, guidance, and counseling Related to Body mass index [BMI] 40.0-44.9, adult May continue Depo Pr overa. Encouraged calcium 1000mg QD. Recommend condoms for back up BC and to prevent STDs Related to Encounter for surveillance of injectable contraceptive Encouraged monthly B SE. Recommend calcium 1000mg QD. Encouraged good dietary intake and exercise. Laboratory specimens sent to lab. Patient to call in 2 weeks if desires results.Discussed control options and patient desires Abstinence Related to Encounter for gynecological examination (general) (routine) without abnormal findings Giving encouragement to exercise Related to Body mass index [BMI] 39.0-39.9, adult Dietary management e ducation, guidance, and counseling Related to Body mass index [BMI] 39.0-39.9, adult May continue Depo Pr overa. Encouraged calcium 1000mg QD. Recommend condoms for back up BC and to prevent STDs Related to Encounter for surveillance of injectable contraceptive Giving encouragement to exercise Related to Body mass index [BMI] 39.0-39.9, adult Dietary management e ducation, guidance, and counseling Related to Body mass index [BMI] 39.0-39.9, adult May continue Depo Pr overa. Encouraged calcium 1000mg QD. Recommend condoms for back up BC and to prevent STDs Related to Encounter for surveillance of injectable contraceptive Dietary management e ducation, guidance, and counseling Related to Body mass index [BMI]40.0-44.9, adult Giving encouragement to exercise Related to Body mass index [BMI]40.0-44.9, adult May continue Depo Pr overa. Encouraged calcium 1000mg QD. Recommend condoms for back up BC and to prevent STDs Related to Encounter for surveillance of injectable contraceptive Giving encouragement to exercise Related to Body mass index [BMI]40.0-44.9, adult May continue Depo Pr overa. Encouraged calcium 1000mg QD. Recommend condoms for back up BC and to prevent STDs Related to Encounter for surveillance of injectable contraceptive Giving encouragement to exercise Related to Body mass index (BMI) 40.0-44.9, adult Dietary management e ducation, guidance, and counseling Related to Body mass index (BMI) 40.0-44.9, adult Cervical cultures se nt to lab. Patient to call in 1 week for results Related to Encounter for STD screening May continue Depo Pr overa. Encouraged calcium 1000mg QD. Recommend condoms for back up BC and to prevent STDs Related to Encounter for surveillance of injectable contraceptive Encouraged monthly B SE. Recommend calcium 1000mg QD. Encouraged good dietary intake and exercise. Laboratory specimens sent to lab. 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 Encouraged calcium 1000mg QD. Recommend condoms for back up BC and to prevent STDs Related to Encounter for surveillance of injectable contraceptive Dietary management e ducation, guidance, and counseling Related to Body mass index (BMI) 39.0-39.9, adult Giving encouragement to exercise Related to Body mass index (BMI) 39.0-39.9, adult May continue Depo Pr overa. Encouraged calcium 1000mg QD. Recommend condoms for back up BC and to prevent STDs Related to Encounter for surveillance of injectable contraceptive Giving encouragement to exercise Related to Body mass index (BMI) 37.0-37.9, adult Dietary management e ducation, guidance, and counseling Related to Body mass index (BMI) 37.0-37.9, adult May continue Depo Pr overa. Encouraged calcium 1000mg QD. Recommend condoms for back up BC and to prevent STDs Related to Encounter for surveillance of injectable contraceptive Giving encouragement to exercise Related to Body mass index (BMI) 36.0-36.9, adult Dietary management e ducation, guidance, and counseling Related to Body mass index (BMI) 36.0-36.9, adult Encouraged monthly B SE. Recommend calcium 1000mg QD. Encouraged good dietary intake and exercise. Laboratory specimens sent to lab. Patient to call in 2 weeks if desires results. 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 Patient to call in 1 week for results Related to Encounter for STD screening May continue Depo Pr overa. Encouraged calcium 1000mg QD. Recommend condoms for back up BC and to prevent STDs Related to Encounter for surveillance of injectable contraceptive Dietary management e ducation, guidance, and counseling Related to Body mass index (BMI) 35.0-35.9, adult Giving encouragement to exercise Related to Body mass index (BMI) 35.0-35.9, adult May continue Depo Pr overa. Encouraged calcium 1000mg QD. Recommend condoms for back up BC and to prevent STDs Related to Encounter for surveillance of injectable contraceptive Giving encouragement to exercise Related to Body mass index (BMI) 34.0-34.9, adult Dietary management e ducation, guidance, and counseling Related to Body mass index (BMI) 34.0-34.9, adult May continue Depo Pr overa. Encouraged calcium 1000mg QD. Recommend condoms for back up BC and to prevent STDs Related to Encounter for surveillance of injectable contraceptive Giving encouragement to exercise Related to Body mass index (BMI) 32.0-32.9, adult Dietary management e ducation, guidance, and counseling Related to Body mass index (BMI) 32.0-32.9, adult May continue Depo Pr overa. Encouraged calcium 1000mg QD. Recommend condoms for back up BC and to prevent STDs Related to Encounter for surveillance of injectable contraceptive Giving encouragement to exercise Related to Body mass index (BMI) 30.0-30.9, adult Dietary management e ducation, guidance, and counseling Related to Body mass index (BMI) 30.0-30.9, adult Dietary management e ducation, guidance, and counseling Related to Body mass index (BMI) 30.0-30.9, adult Giving encouragement to exercise Related to Body mass index (BMI) 30.0-30.9, adult Cervical cultures se nt to lab. Patient to call in 1 week for results Related to Encounter for STD screening May continue Depo Pr overa. Encouraged calcium 1000mg QD. Recommend condoms for back up BC and to prevent STDs Related to Encounter for surveillance of injectable contraceptive Encouraged monthly B SE. Recommend calcium 1000mg QD. Encouraged good dietary intake and exercise. Laboratory specimens sent to lab. Patient to call in 2 weeks if desires results. Discussed chronic back paina nd encouraged patient to consider alternative measures other than oxycodone to treat. Patient states she plans to continue current method of treatment as she states she would never consider back surgery. 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 Encouraged calcium 1000mg QD. Recommend condoms for back up BC and to prevent STDs Related to Encounter for surveillance of injectable contraceptive May continue Depo Pr overa. Encouraged calcium 1000mg QD. Recommend condoms for back up BC and to prevent STDs Related to Encounter for surveillance of injectable contraceptive May continue Depo Pr overa. Encouraged calcium 1000mg QD. Recommend condoms for back up BC and to prevent STDs Related to Encounter for surveillance of injectable contraceptive May continue Depo Pr overa. Encouraged calcium 1000mg QD. Recommend condoms for back up BC and to prevent STDs Related to Encounter for surveillance of injectable contraceptive Positive condyloma n oted. Will schedule appt with Dr. 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 Patient to call in 1 week for results Related to Encounter for STD screening Encouraged monthly B SE. Recommend calcium 1000mg QD. Encouraged good dietary intake and exercise. Laboratory specimens sent to lab. Patient to call in 2 weeks if desires results. Related to - well woman with abnormal finding May continue Depo Pr overa. Encouraged calcium 1000mg QD. Recommend condoms for back up BC and to prevent STDs Related to Encounter for surveillance of injectable contraceptive May continue Depo Pr overa. Encouraged calcium 1000mg QD. Recommend condoms for back up BC and to prevent STDs Related to Encounter for surveillance of injectable contraceptive May continue Depo Pr overa. Encouraged calcium 1000mg QD. Recommend condoms for back up BC and to prevent STDs Related to Encounter for surveillance of injectable contraceptive May continue Depo Pr overa. Encouraged calcium 1000mg QD. Recommend condoms for back up BC and to prevent STDs. Encouraged to monitor BTB and after next 3 months if still having large amount of BTB may consider change to different BC method Related to Encounter for surveillance of injectable contraceptive May continue Depo Pr overa. Encouraged calcium 1000mg QD. Recommend condoms for back up BC and to prevent STDs Related to Encounter for surveillance of injectable contraceptive Encouraged monthly B SE. Recommend calcium 1000mg QD. Encouraged good dietary intake and exercise. Laboratory specimens sent to lab. Patient to call in 2 weeks if desires results. 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 Encouraged calcium 1000mg QD. Recommend condoms for back up BC and to prevent STDs Related to Encounter for surveillance of injectable contraceptive Cervical cultures se nt to lab. Patient to call in 1 week for results Related to Encounter for STD screening May continue Depo Pr overa. Encouraged calcium 1000mg QD. Recommend condoms for back up BC and to prevent STDs Related to Other specified contraceptive management May continue Depo Pr overa. Encouraged calcium 1000mg QD. Recommend condoms for back up BC and to prevent STDs Related to Other specified contraceptive management May continue Depo Pr overa. Encouraged calcium 1000mg QD. Recommend condoms for back up BC and to prevent STDs Related to Other specified contraceptive management Assessments Type Assessment Date assessment Encounter for Depo-Provera contr aception Patient Care Teams Name Effective Dates (start - stop) Status Members No Information
--- NOTE | 2025-05-17 13:01 | PM.CN ---
Consult Note: HPI Data of Consult Patient: known to practice within the last 3 years Consult date: 05/17/25 Requesting Physician: Chantal Ocampo NP Primary Care Provider: Jesus Camacho MD Consult Narrative Reason for consult: neck pain Narrative: 49 year old female with chronic severe neck pain secondary to cervical stenosis, DDD, and cervical spondylosis unresponsive to > 6 weeks of PT/HEP, heat, ice, tylenol, NSAIDs. pt reports prior cervical RFAs provided significant relief for at least 6 months and she is interested in repeating. pain today 5-6/10 increasing to 10/10 in neck and bilateral shoulders/arms. pain increased with standing, walking, pushing, pulling, housework, ADLs, and activity. Notes improvement with sleep and lying down. currently utilizing lodine, robaxin, duloxetine, nortriptyline with benefit without side effects. cc:: CC: Chantal Ocampo NP 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 - 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], unspecified hand (ICD-10) History of smoking ?Z87.891 - Personal history of nicotine dependence (ICD-10) Carpal tunnel syndrome ?G56.00 - Carpal tunnel syndrome, unspecified upper limb (ICD-10) Obesity ?E66.9 - Obesity, unspecified (ICD-10) Anemia ?D64.9 - Anemia, unspecified (ICD-10) Anxiety ?F41.9 - Anxiety disorder, unspecified (ICD-10) Acid reflux ?K21.9 - Gastro-esophageal reflux disease without esophagitis (ICD-10) Diabetes 1.5, managed as type 2 ?E13.9 - Other specified diabetes mellitus without complications (ICD-10) Hypertension ?I10 - Essential (primary) hypertension (ICD-10) High cholesterol ?E78.00 - Pure hypercholesterolemia, unspecified (ICD-10) Surgical History H/O resection of rib ?Z98.890 - Other specified postprocedural states (ICD-10) History of surgery on arm ?Z98.890 - Other specified postprocedural states (ICD-10) H/O breast biopsy ?Z98.890 - Other specified postprocedural states (ICD-10) History of carpal tunnel surgery ?Z98.890 - Other specified postprocedural states (ICD-10) History of appendectomy ?Z90.49 - Acquired absence of other specified parts of digestive tract (ICD-10) Meds Home Medications and Allergies Home Medications ?Medication ?Instructions ?Recorded ?Confirmed ?Type brexpiprazole 2 mg tablet (Rexulti) 2 mg PO DAILY 02/17/23 04/24/25 History dapagliflozin propanediol 5 mg 5 mg PO DAILY 02/17/23 04/24/25 History tablet (Farxiga) duloxetine 30 mg capsule,delayed 30 mg PO DAILY 02/17/23 04/24/25 History release glycopyrrolate 1 mg tablet 1 mg PO Q8H PRN secretions 02/17/23 04/24/25 History hydroxychloroquine 200 mg tablet 200 mg PO BID 02/17/23 04/24/25 History ipratropium 0.5 mg-albuterol 3 mg 3 ml inhalation Q6H PRN shortness 02/17/23 04/24/25 History (2.5 mg base)/3 mL nebulization of breath soln lamotrigine 200 mg tablet 200 mg PO Q8H 02/17/23 04/24/25 History lubiprostone 24 mcg capsule 24 mcg PO BID 02/17/23 04/24/25 History metformin 500 mg tablet 1,000 mg PO BID 02/17/23 04/24/25 History ondansetron HCl 4 mg tablet 4 mg PO Q8H PRN nausea and vomiting 02/17/23 04/24/25 History pioglitazone 15 mg tablet 15 mg PO DAILY 02/17/23 04/24/25 History vilazodone 40 mg tablet (Viibryd) 40 mg PO DAILY 02/17/23 04/24/25 History budesonide 1 mg/2 mL suspension 1 mg inhalation DAILY 03/08/24 04/24/25 History for nebulization (Pulmicort) dexlansoprazole 60 mg 60 mg PO DAILY 03/08/24 04/24/25 History capsule,biphase delayed release (Dexilant) etodolac 400 mg tablet (Lodine) 400 mg PO Q12H PRN pain 03/08/24 04/24/25 History nortriptyline 25 mg capsule 25 mg PO DAILY 03/08/24 04/24/25 History methocarbamol 500 mg tablet mg 07/04/24 History mirabegron 25 mg tablet,extended mg PO 07/04/24 History release 24 hr (Myrbetriq) Allergies Allergy/AdvReac Type Severity Reaction Status Date / Time No Known Drug Allergies Allergy Verified 04/24/25 08:41 Exam Constitutional Documenting provider has reviewed patient's vital signs: yes Common normals: no apparent distress, oriented x3, healthy appearing, alert and well nourished General appearance: cooperative HENMT Common normals: normocephalic, hearing grossly normal bilaterally and moist oral mucous membranes Head and scalp: normocephalic Eye Common normals: PERRL Pupil: PERRL Neck & C-Spine Common normals: full ROM General: normal visual inspection Cervical spine: pain with cervical ROM and cervical spine tenderness Other: positive spurlings decreased strength 4/5 in BUE decreased sensation bilateral C6,7 positive facet loading bialterlaly Chest Common normals: inspection of chest normal Respiratory Common normals: normal respiratory effort, no retractions and no use of accessory muscles Back & Pelvis Thoracic spine/upper back: pain with ROM and thoracic spinal tenderness T-spine tenderness location: T4, T5 and T6 Neuro Common normals: oriented x3 Sensorium/orientation: alert Psych Common normals: mental status grossly normal, thought process normal, cooperative, affect normal, speech normal and activity/motor behavior normal Speech: normal speech Thought process: normal thought process Results Additional Findings Additional findings: If on a controlled substance or opioids, I have checked an [place]AR[place] report on this patient and there are no aberrancies noted in the prescribing history.??If on a controlled substance or opioid a drug screen was completed and reviewed within the last year, and if there has not been a drug screen completed we ordered one today to monitor higher risk, state monitored pain medication use. As part of providing excellent, safe, comprehensive care, the following was completed at our patient's visit: 1. A medication reconciliation and review to ensure accurate knowledge of current/active medications, including asking our patients to inform us about any pyze-zto-qhokanf medications or herbal remedies/nutritional supplements/alternative remedies. 2. A review to specifically ensure our patients have had annual screening for screening for depression, screening for tobacco use, and screening for unhealthy alcohol use. For concerning screenings had a discussion with the patient, provided patient education, and recommended follow-up with primary care provider when appropriate. If patient noted with a risk of falling, they received education on strength, gait, and balance training to prevent future risk of falling. Portions of this note may have been carried over from the previous visit and updated as appropriate. Please note this office utilizes paper charting in addition to the electronic medical record. A list of current medications, vitals, and PMH is available there as the clinical staff outside of myself do not have access to [facility] charting during the clinic day operations. As part of providing quality comprehensive care the current medications, vitals, and PMH were reviewed in the paper chart. Assessment and Plan Assessment and Plan (1) Cervical stenosis of spinal canal: Assessment and Plan: The patient has had over 3 months of moderate to severe neck pain with functional impairment and inadequate response to conservative care including NSAIDS (unless there are contraindication such as concurrent blood thinners), multiple oral or topical pain medications, and home exercise program/physical therapy.? Patient has completed >6 weeks of guided home exercise program and/or formal physical therapy program without relief of their symptoms.? The Oswestry Disability Index was completed, and the patient scored a 33%.? The patient noted the following:?? moderate to severe pain impacting ADLs, sitting, standing, sleeping, social life, travel We discussed the risks and benefits of the procedure with the patient, and we are NOT planning on using sedation as outlined in the guidelines from Medicare unless there is a documented reason that sedation would be strongly recommended.??The procedure will be completed with fluoroscopic guidance.? (2) Cervical spondylosis: (3) Thoracic back pain: (4) Thoracic radiculopathy: Plan proceed with bilateral C6-7 TFESI under fluoroscopy for cervical stenosis consider repeat cervical RFAs for facet mediated pain in the future, unfortunately we are restricted by insurance guidelines and cannot perform more than 2 cervical RFAs in 12 months continue current medications update thoracic xray to assess chronic thoracic pain, notes intermittent radiculopathy left >right f/u 2 weeks after injection
--- OUTSIDE RECORDS SUMMARY | 2025-05-17 13:06 | XMS_ITS | Encounter Summary ---
Author Organization [facility] Address [address] [place] [address] Care Team Providers Care Kindergartner Name Role Phone Jesus Camacho MD Unavailable [phone] Jesus Camacho MD Unavailable [phone] Jesus Camacho MD Primary Care Provider [phone] Source Comments In the event this information is protected by the Federal Confidentiality of Alcohol and Drug AbusePatient Records regulations: The Federal rules restrict any use of the information to criminally investigate or prosecute any alcohol or drug abuse patient.[facility] Encounter Details Date Type Department Care Team (Late st Contact Info) Description 02/03/2024 Cure Form [facility] [address] [place] [id number] Shakila Phillips, RN [address] [place] [address] Intracranial meningioma (HCC) (Primary Dx); Preop testing [...] is lower risk 8 06/01/2023 Data from: https://www.neighborhoodatlas.medicine.[facility]/. Last address used for calculation [address] [...] 06/22/2025 2:20 PM EDT Office Visit Rheumatology [address] [place] [address] Zulema Mclean MD [address] [facility] [address] [place] [address] 6 month follow up Scheduled Orders Name Type Priority Associated Diagnoses Orde r Schedule REFER FOR ADMIT INTERVIEW Procedures Routine Intracranial meningioma (HCC) Preop testing Ordered: 02/03/2024 documented as of this encounter Visit Diagnoses Diagnosis Intracranial meningioma (HCC)- Primary Benign neoplasm of cerebral meninges Preop testing Preoperative examination, unspecified documented in this encounter Care Teams Kindergartner Relationship Specialty Start Date End Date Jesus Camacho MD [address] [place] [address] PCP - General Family Medicine 05/12/23 Jesus Camacho MD Referring Family Medicine 01/14/21 Jesus Camacho MD [address] [place] [address] Referring Family Medicine 05/12/23 documented as of this encounter
--- OUTSIDE RECORDS SUMMARY | 2025-05-17 13:06 | XMS_ITS | Encounter Summary ---
Author Organization [facility] Address [facility] [place] [address] Care Team Providers Care Head Start Teacher Name Role Phone Jesus Camacho MD Unavailable [phone] Jesus Camacho MD Unavailable [phone] Jesus Camacho MD Primary Care Provider [phone] Source Comments In the event this information is protected by the Federal Confidentiality of Alcohol and Drug AbusePatient Records regulations: The Federal rules restrict any use of the information to criminally investigate or prosecute any alcohol or drug abuse patient.[facility] Encounter Details Date Type Department Care Team (Late st Contact Info) Description 02/07/2024 Get Medical Advice [facility] [address] [place] [address] Jacky Pineda MD [address] [place] [address] Appointments Social History Tobacco Use [...] is lower risk 8 06/01/2023 Data from: https://www.neighborhoodatlas.medicine.[facility]/. Last address used for calculation [address] [...] 06/22/2025 2:20 PM EDT Office Visit Rheumatology [address] [place] [address] Zulema Mclean MD [address] [facility] [address] [place] [address] 6 month follow up documented as of this encounter Visit Diagnoses Not on filedocumented in this encounter Care Teams Head Start Teacher Relationship Specialty Start Date End Date Jesus Camacho MD [address] [place] [address] PCP - General Family Medicine 05/12/23 Jesus Camacho MD Referring Family Medicine 01/14/21 Jesus Camacho MD [address] [place] [address] Referring Family Medicine 05/12/23 documented as of this encounter
--- OUTSIDE RECORDS SUMMARY | 2025-05-17 13:06 | XMS_ITS | Encounter Summary ---
Author Organization [facility] Address [facility] [place] [address] Care Team Providers Care Foreclosure Home Inspector Name Role Phone Jesus Camacho MD Unavailable [phone] Jesus Camacho MD Unavailable [phone] Jesus Camacho MD Primary Care Provider [phone] Source Comments In the event this information is protected by the Federal Confidentiality of Alcohol and Drug AbusePatient Records regulations: The Federal rules restrict any use of the information to criminally investigate or prosecute any alcohol or drug abuse patient.[facility] Encounter Details Date Type Department Care Team (Late st Contact Info) Description 03/19/2025 Get Medical Advice [facility] [address] [id number] Jacky Pineda MD [address] [place] [address] Incision picture Social History Tobacco [...] is lower risk 8 06/01/2023 Data from: https://www.neighborhoodatlas.medicine.[facility]/. Last address used for calculation [address] [...] 06/22/2025 2:20 PM EDT Office Visit Rheumatology [address] [place] [address] Zulema Mclean MD [address] [facility] [address] [place] [address] 6 month follow up documented as of this encounter Visit Diagnoses Not on filedocumented in this encounter Care Teams Foreclosure Home Inspector Relationship Specialty Start Date End Date Jesus Camacho MD [address] [place] [address] PCP - General Family Medicine 05/12/23 Jesus Camacho MD Referring Family Medicine 01/14/21 Jesus Camacho MD [address] [place] [address] Referring Family Medicine 05/12/23 documented as of this encounter
--- OUTSIDE RECORDS SUMMARY | 2025-05-17 13:06 | XMS_ITS | Encounter Summary ---
Author Organization [facility] Address [address] [place] [address] Care Team Providers Care Industrial Organizational Psychologist Name Role Phone Jesus Camacho MD Unavailable [phone] Jesus Camacho MD Unavailable [phone] Jesus Camacho MD Primary Care Provider [phone] Source Comments In the event this information is protected by the Federal Confidentiality of Alcohol and Drug AbusePatient Records regulations: The Federal rules restrict any use of the information to criminally investigate or prosecute any alcohol or drug abuse patient.[facility] Encounter Details Date Type Department Care Team (Late st Contact Info) Description 05/23/2024 Patient [facility] HB-[address] [place] [address] Sabina Carrillo RPh At your next appointment, choose [facility]. Social History Tobacco Use Types [...] is lower risk 8 06/01/2023 Data from: https://www.neighborhoodatlas.medicine.[facility]/. Last address used for calculation [address] [...] 06/22/2025 2:20 PM EDT Office Visit Rheumatology [address] [place] [address] Zulema Mclean MD [address] [facility] [address] [place] [address] 6 month follow up documented as of this encounter Visit Diagnoses Not on filedocumented in this encounter Care Teams Industrial Organizational Psychologist Relationship Specialty Start Date End Date Jesus Camacho MD [address] [place] [address] PCP - General Family Medicine 05/12/23 Jesus Camacho MD Referring Family Medicine 01/14/21 Jesus Camacho MD [address] [place] [address] Referring Family Medicine 05/12/23 documented as of this encounter
--- OUTSIDE RECORDS SUMMARY | 2025-05-17 13:07 | XMS_ITS | Encounter Summary ---
Author Organization [facility] Address [address] [place] [address] Care Team Providers Care Formula Mixer Name Role Phone Jesus Camacho MD Unavailable [phone] Jesus Camacho MD Unavailable [phone] Jesus Camacho MD Primary Care Provider [phone] Source Comments In the event this information is protected by the Federal Confidentiality of Alcohol and Drug AbusePatient Records regulations: The Federal rules restrict any use of the information to criminally investigate or prosecute any alcohol or drug abuse patient.[facility] Reason for Visit * Reason Comments Refill Request Encounter Details Date Type Department Care Team (Late st Contact Info) Description 10/08/2024 Refill Rheumatology [address] [place] [address] Zulema Mclean MD [address] [facility] [address] [place] [address] Refill Request Social History Tobacco [...] lower risk 8 06/01/2023 Data from: https://www.neighborhoodatlas.medicine.[facility]/. Last address used for calculation [address] [...] 06/22/2025 2:20 PM EDT Office Visit Rheumatology [address] [place] [address] Zulema Mclean MD [address] [facility] [address] [place] [address] 6 month follow up documented as of this encounter Visit Diagnoses Not on filedocumented in this encounter Care Teams Formula Mixer Relationship Specialty Start Date End Date Jesus Camacho MD [address] [place] [address] PCP - General Family Medicine 05/12/23 Jesus Camacho MD Referring Family Medicine 01/14/21 Jesus Camacho MD [address] [place] [id number] Referring Family Medicine 05/12/23 documented as of this encounter
--- OUTSIDE RECORDS SUMMARY | 2025-05-17 13:07 | XMS_ITS | Encounter Summary ---
Author Organization [facility] Address [address] [place] [address] Care Team Providers Care Sock And Stocking Ironer Name Role Phone Jesus Camacho MD Unavailable [phone] Jesus Camacho MD Unavailable [phone] Jesus Camacho MD Primary Care Provider [phone] Source Comments In the event this information is protected by the Federal Confidentiality of Alcohol and Drug AbusePatient Records regulations: The Federal rules restrict any use of the information to criminally investigate or prosecute any alcohol or drug abuse patient.[facility] Reason for Visit * Reason Comments Refill Request Encounter Details Date Type Department Care Team (Late st Contact Info) Description 05/15/2025 Refill Rheumatology [address] [place] [address] Zulema Mclean MD [address] [facility] [address] [place] [address] Refill Request Social History Tobacco [...] is lower risk 8 06/01/2023 Data from: https://www.neighborhoodatlas.medicine.[facility]/. Last address used for calculation [...] Encounter - La Nena Waterman LPN - 05/16/2025 1:46 PM EDT Images from the original note were not included. Most recent Rheumatology visit: 12/28/2024 (with Zulema Mclean) Last Bone Density on file: None on file Rheumatology Care Team: None on file Recent Office Visits - This Specialty 12/28/2024 Inflammatory arthritis Rheumatology Zulema Mclean MD 05/30/2024 Inflammatory arthritis Rheumatology Zulema Mclean MD 09/28/2023 Inflammatory arthritis Rheumatology Zulema Mclean MD Upcoming Rheumatology Appointments - Next 365 Days Visit Type Date Time Department ASHLEY EST [facility] 06/22/2025 2:20 PM [facility] Last Ophthalmology Check for Plaquenil (Hydroxychloroquine) Last OCT Macula Exam No resulted procedures found. Last Visual Field Exam No resulted procedures found. CBC: Latest Ref Rng & Units 02/20/2025 02/21/2025 CBC WBC 3.70 - 11.00 k/uL 12.82 Hemoglobin 11.5 - 15.5 g/dL 11.2 Hemoglobin Total, Whole Blood 11.5 - 15.5 g/dL 10.6 Hematocrit 36.0 - 46.0 % 34.6 Platelet Count 150 - 400 k/uL 309 Abs Neut (ANC) 1.45 - 7.50 k/uL 10.95 Abs Lymph 1.00 - 4.00 k/uL 0.87 Vitamin D: None on file in the last 6 months LFT: Latest Ref Rng & Units 02/20/2025 02/21/2025 CMP Sodium 136 - 144 mmol/L 137 138 Potassium 3.7 - 5.1 mmol/L 4.1 4.2 Chloride 98 - 107 mmol/L 105 105 CO2 22 - 30 mmol/L 20 20 Glucose 74 - 99 mg/dL 94 131 BUN 7 - 21 mg/dL 11 8 Creatinine 0.58 - 0.96 mg/dL 0.90 0.75 Calcium 8.5 - 10.2 mg/dL 9.4 8.8 Hepatic Function: Creatinine: Latest Ref Rng & Units 02/20/2025 02/21/2025 Creatinine Creatinine 0.58 - 0.96 mg/dL 0.90 0.75 ESR/CRP: Latest Ref Rng & Units 03/04/2021 02/14/2025 ESR, WSR WSR 0 - 20 mm/hr 9 2 Latest Ref Rng & Units 03/04/2021 02/14/2025 CRP CRP <0.9 mg/dL 1.0 0.6 Uric Acid: None on file in the last 6 months Open Standing (Multiple Instance) Lab Orders Remain Interval Expires Ordered Last Rel. ASPARTATE AMINOTRANSFERASE/SGOT [SQAST] 3/4 Every 3 months 09/06/25 09/09/24 02/14/25 Auth. provider: Zulema Mclean MD Assoc. diagnoses: Inflammatory arthritis ALANINE AMINOTRANSFERASE / SGPT [SQALT] 3/4 Every 3 months 09/06/25 09/09/24 02/14/25 Auth. provider: Zulema Mclean MD Assoc. diagnoses: Inflammatory arthritis COMPLETE BLOOD COUNT [SQCBC] 3/4 Every 3 months 09/06/25 09/09/24 02/14/25 Auth. provider: Zulema Mclean MD Assoc. diagnoses: Inflammatory arthritis SEDIMENTATION RATE, WESTERGREN [SQWSR] 3/4 Every 3 months 09/06/25 09/09/24 02/14/25 Auth. provider: Zulema Mclean MD Assoc. diagnoses: Inflammatory arthritis C-REACTIVE PROTEIN [SQCRP] 3/4 Every 3 months 09/06/25 09/09/24 02/14/25 Auth. provider: Zulema Mclean MD Assoc. diagnoses: Inflammatory arthritis ASPARTATE AMINOTRANSFERASE/SGOT [SQAST] 3/4 Every 3 months 10/10/25 10/10/24 02/14/25 Auth. provider: Zulema Mclean MD Assoc. diagnoses: Encounter for medication monitoring ALANINE AMINOTRANSFERASE / SGPT [SQALT] 3/4 Every 3 months 10/10/25 10/10/24 02/14/25 Auth. provider: Zulema Mlcean MD Assoc. diagnoses: Encounter for medication monitoring COMPLETE BLOOD COUNT [SQCBC] 3/4 Every 3 months 10/10/25 10/10/24 02/14/25 Auth. provider: Zulema Mclean MD Assoc. diagnoses: Encounter for medication monitoring SEDIMENTATION RATE, WESTERGREN [SQWSR] 3/4 Every 3 months 10/10/25 10/10/24 02/14/25 Auth. provider: Zulema Mclean MD Assoc. diagnoses: Encounter for medication monitoring C-REACTIVE PROTEIN [SQCRP] 3/4 Every 3 months 10/10/25 10/10/24 02/14/25 Auth. provider: Zulema Mclean MD Assoc. diagnoses: Encounter for medication monitoring Open Future (Single Instance) Lab Orders None documented in this encounter Plan of Treatment Upcoming Encounters Date Type Department Care Team (Late st Contact Info) Description 06/22/2025 2:20 PM EDT Office Visit Rheumatology [address] [place] [address] Zulema Mclean MD [address] [facility] [address] [place] [address] 6 month follow up documented as of this encounter Visit Diagnoses Diagnosis Fibromyalgia Mylagia and myositis, unspecified documented in this encounter Care Teams Sock And Stocking Ironer Relationship Specialty Start Date End Date Jesus Camacho MD [address] [place] [address] PCP - General Family Medicine 05/12/23 Jesus Camacho MD Referring Family Medicine 01/14/21 Jesus Camacho MD [address] [place] [address] Referring Family Medicine 05/12/23 documented as of this encounter
--- OUTSIDE RECORDS SUMMARY | 2025-05-17 13:07 | XMS_ITS | Encounter Summary ---
Author Organization [facility] Address [facility] [place] [address] Care Team Providers Care Airways Control Specialist Name Role Phone Jesus Camacho MD Unavailable [phone] Jesus Camacho MD Unavailable [phone] Jesus Camacho MD Primary Care Provider [phone] Source Comments In the event this information is protected by the Federal Confidentiality of Alcohol and Drug AbusePatient Records regulations: The Federal rules restrict any use of the information to criminally investigate or prosecute any alcohol or drug abuse patient.[facility] Encounter Details Date Type Department Care Team (Late st Contact Info) Description 03/14/2024 Get Medical Advice [facility] [address] [place] [address] Jacky Pineda MD [address] [place] [address] Need to cancel Social History [...] is lower risk 8 06/01/2023 Data from: https://www.neighborhoodatlas.medicine.[facility]/. Last address used for calculation [address] [facility] 06/01/2023 Comments No Sex and [...] 06/22/2025 2:20 PM EDT Office Visit Rheumatology [address] [place] [address] Zulema Mclean MD [address] [facility] [address] [place] [address] 6 month follow up documented as of this encounter Visit Diagnoses Not on filedocumented in this encounter Care Teams Airways Control Specialist Relationship Specialty Start Date End Date Jesus Camacho MD [address] [place] [address] PCP - General Family Medicine 05/12/23 Jesus Camacho MD Referring Family Medicine 01/14/21 Jesus Camacho MD [address] [place] [address] Referring Family Medicine 05/12/23 documented as of this encounter
--- OUTSIDE RECORDS SUMMARY | 2025-05-17 13:07 | XMS_ITS | Encounter Summary ---
Author Organization [facility] Address [address] [place] [address] Care Team Providers Care Consulting Database Administrator Name Role Phone Jesus Camacho MD Unavailable [phone] Jesus Camacho MD Unavailable [phone] Jesus Camacho MD Primary Care Provider [phone] Source Comments In the event this information is protected by the Federal Confidentiality of Alcohol and Drug AbusePatient Records regulations: The Federal rules restrict any use of the information to criminally investigate or prosecute any alcohol or drug abuse patient.[facility] Encounter Details Date Type Department Care Team (Late st Contact Info) Description 11/30/2023 Patient Msg [facility] [address] [place] [address] Laron Lou DO, PhD [address] [facility] [address] [place] [address] Appointment Request Social History Tobacco [...] is lower risk 8 06/01/2023 Data from: https://www.neighborhoodatlas.medicine.[facility]/. Last address used for calculation [address] [facility] 06/01/2023 Comments No Sex and Gender [...] 06/22/2025 2:20 PM EDT Office Visit Rheumatology [address] [place] [address] Zulema Mclean MD [address] [facility] [address] [place] [address] 6 month follow up documented as of this encounter Visit Diagnoses Not on filedocumented in this encounter Care Teams Consulting Database Administrator Relationship Specialty Start Date End Date Jesus Camacho MD [address] [place] [address] PCP - General Family Medicine 05/12/23 Jesus Camacho MD Referring Family Medicine 01/14/21 Jesus Camacho MD [address] [place] [address] Referring Family Medicine 05/12/23 documented as of this encounter
--- OUTSIDE RECORDS SUMMARY | 2025-05-17 13:07 | XMS_ITS | Encounter Summary ---
Author Organization [facility] Address [address] [place] [address] Care Team Providers Care Cord Cutter Name Role Phone Jesus Camacho MD Unavailable [phone] Jesus Camacho MD Unavailable [phone] Jesus Camacho MD Primary Care Provider [phone] Source Comments In the event this information is protected by the Federal Confidentiality of Alcohol and Drug AbusePatient Records regulations: The Federal rules restrict any use of the information to criminally investigate or prosecute any alcohol or drug abuse patient.[facility] Encounter Details Date Type Department Care Team (Late st Contact Info) Description 12/05/2024 Patient Msg [facility] [address] [place] [address] Provider, [facility] Today's Phone Call - Vision [...] lower risk 8 06/01/2023 Data from: https://www.neighborhoodatlas.medicine.[facility]/. Last address used for calculation [address] [...] 06/22/2025 2:20 PM EDT Office Visit Rheumatology [address] [place] [address] Zulema Mclean MD [address] [facility] [address] [place] [address] 6 month follow up documented as of this encounter Visit Diagnoses Not on filedocumented in this encounter Care Teams Cord Cutter Relationship Specialty Start Date End Date Jesus Camacho MD [address] [place] [address] PCP - General Family Medicine 05/12/23 Jesus Camacho MD Referring Family Medicine 01/14/21 Jesus Camacho MD [address] [place] [address] Referring Family Medicine 05/12/23 documented as of this encounter
--- OUTSIDE RECORDS SUMMARY | 2025-05-17 13:07 | XMS_ITS | Clinical Summary ---
Author Organization [facility] Address [address] [place] [address] Care Team Providers Care Dye Stand Loader Name Role Phone Jesus Camacho MD Primary Care Provider [phone] Allergies No known active allergies Medications Brexpiprazole (Rexulti) 2 MG tablet TAKE 1 TABLET BY MOUTH ONCE DAILY Oral for 30 Active butalbital-acet aminophen-caffe ine 50-325-40 MG tablet TAKE 1 TABLET BY MOUTH FOUR TIMES DAILY NEEDED FOR HEADACHE Oral for 15 Active dapagliflozin (Farxiga) 5 MG TAKE 1 TABLET BY MOUTH ONCE DAILY Oral for 30 Active dexlansoprazole (Dexilant) [address] capsule 1 capsule 1 (one) time each day at the same time. Active glycopyrrolate (Robinul) 1 MG tablet TAKE 1 TABLET BY MOUTH EVERY DAY x2 weeks, then increase to 1 (ONE) tablet TWICE DAILY Oral for 30 Active hydroxychloroqu ine (Plaquenil) 200 MG tablet as directed Orally Active ibuprofen 800 MG tablet TAKE 1 TABLET FOUR TIMES DAILY Oral for 30 Active lamoTRIgine (LaMICtal) 200 MG tablet TAKE 3 TABLETS BY MOUTH EVERY DAY Oral for 30 Active lubiprostone (Amitiza) 24 MCG capsule TAKE 1 CAPSULE BY MOUTH TWICE DAILY Oral for 30 Active metFORMIN (Glucophage) 500 MG tablet TAKE 2 TABLETS TWICE DAILY Oral for 30 Active milnacipran (Savella) 100 mg tablet TAKE 1 TABLET BY MOUTH TWICE DAILY Oral for 30 Active pioglitazone (Actos) 15 MG tablet TAKE 1 TABLET BY MOUTH EVERY DAY Oral for 30 Active predniSONE (Deltasone) 10 MG tablet 1 tablet with food or milk Orally Three times a day for 5 days and twice a day for 3 days for 8 days Active simvastatin (Zocor) 20 MG tablet TAKE 1 TABLET EVERY DAY Oral for 30 Active sucralfate (Carafate) 1 g tablet TAKE 1 TABLET BY MOUTH FOUR TIMES DAILY Oral for 30 Active Blood Glucose Monitoring Suppl (True Metrix Meter) w/Device kit USE TO TEST BLOOD SUGAR EVERY DAY 3 Active budesonide (Pulmicort) 1 MG/2ML nebulizer solution INHALE ONE VIAL ONCE DAILY PER NEBULIZER 3 Active diclofenac (Voltaren) 75 MG EC tablet Take 75 mg by mouth in the morning and 75 mg before bedtime. 2 Active divalproex (Depakote) 500 MG EC tablet Take 500 mg by mouth in the morning and 500 mg before bedtime. 2 Active True Metrix Blood Glucose Test test strip test BLOOD SUGAR DAILY 3 Active hydroCHLOROthia zide (HYDRODiuril) 25 MG tablet Take 25 mg by mouth in the morning. 2 Active ipratropium-alb uterol (Duo-Neb) 0.5-2.5 mg/3 mL nebulizer solution USE 1 VIAL USING NEBULIZER 4 TIMES A DAY 3 Active Drug [place] Unilet Lancets 33G misc USE ONCE DAILY 3 Active lisinopril 10 MG tablet Take 10 mg by mouth in the morning. 3 Active ondansetron (Zofran) 4 MG tablet TAKE 1 TABLET BY MOUTH EVERY 6 HOURS NEEDED FOR NAUSEA AND VOMITING 3 Active pregabalin (Lyrica) 50 MG capsule Take 50 mg by mouth in the morning and 50 mg before bedtime. 2 Active promethazine (Phenergan) 25 MG tablet Take 25 mg by mouth every 8 (eight) hours if needed. 3 Active tiZANidine (Zanaflex) 4 MG tablet TAKE 2 TABLETS BY MOUTH DAILY AT BEDTIME 2 Active doxepin (SINEquan) 10 MG capsule Take 10 mg by mouth as needed at bedtime for sleep. Active DULoxetine (Cymbalta) [address] capsule Take 60 mg by mouth in the morning. Do not crush or chew. . Active etodolac (Lodine) 400 MG tablet Take 400 mg by mouth 2 (two) times a day as needed Active nortriptyline (Pamelor) 25 MG capsule TAKE 1 CAPSULE BY MOUTH DAILY AT BEDTIME Active levothyroxine (Synthroid, Levoxyl) 50 MCG tablet 1 (one) time each day at the same time 4 Active methocarbamol (Robaxin) 500 MG tablet Take 500 mg by mouth every 12 (twelve) hours if needed 4 Active Myrbetriq 25 MG 24 hr tablet TAKE 1 TABLET BY MOUTH EVERY DAY FOR 30 DAYS 4 Active vilazodone (Viibryd) 40 mg tablet TAKE 1 TABLET BY MOUTH EVERY DAY WITH FOOD 4 Active Active Problems Problem Noted Date Diagnosed Date Rib pain on right side 03/25/2023 Bloating 03/25/2023 DM type 2 without retinopathy 03/24/2023 Fibromyalgia 03/24/2023 Myopia of both eyes 03/24/2023 Nuclear senile cataract 03/24/2023 Open angle with borderline findings, low risk, b ilateral 03/24/2023 Otitis externa 03/24/2023 Presbyopia 03/24/2023 Immunizations Immunization Administration Dates Next Due Hep A, Adult 02/02/2019 Influenza, Unspecified 06/23/2017 Influenza, injectable, MDCK, preservative free, quadrivalent 06/18/2022,07/04/2020 Influenza, injectable, quadrivalent, preservativ e free 07/12/2021,08/30/2014 Td (adult), 5 Lf tetanus tox oid, preservative free, adsorbed 07/03/2021 Family History Medical History Relation Name Comments liver failure Father Relation Name Status Comments Brother Alive Father Mother Alive Social History Tobacco Use Types Packs/Day Years Used Date Smoking Tobacco: Former Cigarettes Comments:>10 years since las t smoked Alcohol Use Standard Drinks/Week Comments Yes 0 (1 standard drink = 0.6 oz pur e alcohol) caffeine: stackers Comments Unknown Sex and Gender Information Value Date Recorded Sex Assigned at Not on file Legal Sex Female 8:26 PM EDT Gender Identity Not on file Sexual Orientation Not on file Last Filed Vital Signs Vital Sign Reading Time Taken Comments Blood Pressure 124/88 07/13/2024 5:34 PM EDT Pulse 87 07/13/2024 5:34 PM EDT Temperature 37.1 C (98.7 F) 07/13/2024 5:34 PM EDT Respiratory Rate 18 02/01/2024 9:30 AM EDT Oxygen Saturation 99% 07/13/2024 5:34 PM EDT Inhaled Oxygen Concentration - - Weight 111 kg (245 lb) 07/13/2024 5:34 PM EDT Height 165.1 cm (5' 5 ) 03/25/2023 10:35 AM EDT Body Mass Index 40.77 03/25/2023 10:35 AM EDT Plan of Treatment Health Maintenance Due Date Last Done Comments CT Colonography 1977 Colonoscopy 1977 Colorectal Cancer Screening 1977 FIT-DNA 1977 FIT 1977 FOBT 1977 Sigmoidoscopy 1977 Pap Smear 1998 Cervical Cancer Screening 2007 HPV/Cotest 2007 Mammogram 2017 Influenza Vaccine (#1) 2025 2, 07/12/2021, 07/04/2020, Additional history exists Insurance MEDICARE [employer] MEDICARE ADVANTAGE MEDICAID [place] Care Teams Dye Stand Loader Relationship Specialty Start Date End Date Jesus Camacho MD PCP - General Family Medicine 03/12/23
--- OUTSIDE RECORDS SUMMARY | 2025-05-17 13:07 | XMS_ITS | Encounter Summary ---
Author Organization [facility] Address [address] [place] [address] Care Team Providers Care High School Industrial Arts Teacher Name Role Phone Jesus Camacho MD Unavailable [phone] Jesus Camacho MD Unavailable Jesus Camacho MD Primary Care Provider [phone] Source Comments In the event this information is protected by the Federal Confidentiality of Alcohol and Drug AbusePatient Records regulations: The Federal rules restrict any use of the information to criminally investigate or prosecute any alcohol or drug abuse patient.[facility] Encounter Details Date Type Department Care Team (Late st Contact Info) Description 03/20/2025 Get Medical Advice [facility] [address] [place] [id number] Jacky Pineda MD [address] [place] [address] Antibiotic Social History Tobacco Use [...] Data from: https://www.neighborhoodatlas.medicine.[facility]/. Last address used for calculation [address] [...] 06/22/2025 2:20 PM EDT Office Visit Rheumatology [address] [place] [address] Zulema Mclean MD [address] [facility] [address] [place] [address] 6 month follow up documented as of this encounter Visit Diagnoses Not on filedocumented in this encounter Care Teams High [employer] Industrial Arts Teacher Relationship Specialty Start Date End Date Jesus Camacho MD [address] [place] [address] PCP - General Family Medicine 05/12/23 Jesus Camacho MD Referring Family Medicine 01/14/21 Jesus Camacho MD [address] [place] [address] Referring Family Medicine 05/12/23 documented as of this encounter
--- OUTSIDE RECORDS SUMMARY | 2025-05-17 13:07 | XMS_ITS | Encounter Summary ---
Author Organization [facility] Address [address] [place] [address] Care Team Providers Care Blower Feeder Dyed Raw Stock Name Role Phone Jesus Camacho MD Unavailable [phone] Jesus Camacho MD Unavailable [phone] Jesus Camacho MD Primary Care Provider [phone] Source Comments In the event this information is protected by the Federal Confidentiality of Alcohol and Drug AbusePatient Records regulations: The Federal rules restrict any use of the information to criminally investigate or prosecute any alcohol or drug abuse patient.[facility] Encounter Details Date Type Department Care Team (Late st Contact Info) Description 04/01/2025 Get Medical Advice [facility] [address] [place] [id number] Jacky Pineda MD [address] [place] [address] Incision Social History Tobacco Use [...] 8 06/01/2023 Data from: https://www.neighborhoodatlas.medicine.[facility]/. Last address used for calculation [...] 06/22/2025 2:20 PM EDT Office Visit Rheumatology [address] [place] [address] Zulema Mclean MD [address] [facility] [address] [place] [address] 6 month follow up documented as of this encounter Visit Diagnoses Not on filedocumented in this encounter Care Teams Blower Feeder Dyed Raw Stock Relationship Specialty Start Date End Date Jesus Camacho MD [address] [place] [address] PCP - General Family Medicine 05/12/23 Jesus Camacho MD Referring Family Medicine 01/14/21 Jesus Camacho MD [address] [place] [address] Referring Family Medicine 05/12/23 documented as of this encounter
--- OUTSIDE RECORDS SUMMARY | 2025-05-17 13:07 | XMS_ITS | Encounter Summary ---
Author Organization [facility] Address [facility] [place] [address] Care Team Providers Care Hot Dip Tinning Supervisor Name Role Phone Jesus Camacho MD Unavailable [phone] Jesus Camacho MD Unavailable [phone] Jesus Camacho MD Primary Care Provider [phone] Source Comments In the event this information is protected by the Federal Confidentiality of Alcohol and Drug AbusePatient Records regulations: The Federal rules restrict any use of the information to criminally investigate or prosecute any alcohol or drug abuse patient.[facility] Reason for Visit * Reason Comments Refill Request Encounter Details Date Type Department Care Team (Late st Contact Info) Description 05/17/2025 Refill Neurology Headache [facility] [address] [place] [address] Rachele Fenton APRN.COMPUTER SYSTEMS ENGINEER [address] [place] [address] Refill Request Social History Tobacco [...] lower risk 8 06/01/2023 Data from: https://www.neighborhoodatlas.medicine.[facility]/. Last address used for calculation [...] 06/22/2025 2:20 PM EDT Office Visit Rheumatology [address] [place] [address] Zulema Mclean MD [address] [facility] [address] [place] [address] 6 month follow up documented as of this encounter Visit Diagnoses Diagnosis Chronic daily headache Headache documented in this encounter Care Teams Hot Dip Tinning Supervisor Relationship Specialty Start Date End Date Jesus Camacho MD [address] [place] [address] PCP - General Family Medicine 05/12/23 Jesus Camacho MD Referring Family Medicine 01/14/21 Jesus Camacho MD [address] [place] [address] Referring Family Medicine 05/12/23 documented as of this encounter
--- OUTSIDE RECORDS SUMMARY | 2025-05-17 13:07 | XMS_ITS | Encounter Summary ---
Author Organization [facility] Address [address] [place] [address] Care Team Providers Care Marble Cleaner Name Role Phone Jesus Camacho MD Unavailable [phone] Jesus Camacho MD Unavailable [phone] Jesus Camacho MD Primary Care Provider [phone] Source Comments In the event this information is protected by the Federal Confidentiality of Alcohol and Drug AbusePatient Records regulations: The Federal rules restrict any use of the information to criminally investigate or prosecute any alcohol or drug abuse patient.[facility] Encounter Details Date Type Department Care Team (Late st Contact Info) Description 02/27/2025 Patient Msg Neurology [address] [place] [address] Lisa Box, VENUS Social History [...] Data from: https://www.neighborhoodatlas.medicine.[facility]/. Last address used for calculation [...] 06/22/2025 2:20 PM EDT Office Visit Rheumatology [address] [place] [address] Zulema Mclean MD [address] [facility] [address] [place] [address] 6 month follow up documented as of this encounter Visit Diagnoses Not on filedocumented in this encounter Care Teams Marble Cleaner Relationship Specialty Start Date End Date Jesus Camacho MD [address] [place] [address] PCP - General Family Medicine 05/12/23 Jesus Camacho MD Referring Family Medicine 01/14/21 Jesus Camacho MD [address] [place] [address] Referring Family Medicine 05/12/23 documented as of this encounter
--- OUTSIDE RECORDS SUMMARY | 2025-05-17 13:07 | XMS_ITS | Clinical Summary ---
Author Organization [facility] Address [address] [place], [place] [id number] Care Team Providers Care Associate Professor Of Literature Name Role Phone Jesus Camacho MD Unavailable [phone] Jesus Camacho MD Unavailable [phone] Jesus Camacho MD Primary Care Provider [phone] Allergies No known active allergies Medications benzonatate (TESSALON PERLES ORAL) Active budesonide (PULMICORT) 1 mg/2 mL nebulizer solution INHALE 1 (ONE) vial via NEBULIZER ONCE DAILY Active dapagliflozin (FARXIGA) 5 mg tablet Active DEXILANT 60 mg CpDM Take 1 capsule by mouth twice daily. Active doxepin capsule 10 mg Active glycopyrrolate (ROBINUL) 1 mg tablet Take 2 mg by mouth twice daily. Active ipratropium-albu terol (DUONEB) 0.5 mg-3 mg(2.5 mg base)/3 mL nebu Active lamoTRIgine (LAMICTAL) 200 mg tablet TAKE 3 TABLETS EVERY DAY Active AMITIZA 24 mcg capsule Take 24 mcg by mouth twice daily. Active metFORMIN (GLUCOPHAGE) 500 mg tablet Active pioglitazone (ACTOS) 15 mg tablet Active simvastatin (ZOCOR) 20 mg tablet Take 20 mg by mouth once daily. 021 Active levothyroxine (SYNTHROID) 50 mcg tablet Take 50 mcg by mouth daily before breakfast. Active DULoxetine (CYMBALTA) 30 mg capsuleIndicatio ns:Fibromyalgia Take one tab along with the 60mg tab to equal 90mg po qd 30 capsule 6 025 Active ondansetron orally disintegrating (ZOFRAN ODT) 4 mg disintegrating tablet Take 4 mg by mouth every 8 hours as needed. 022 Active medroxyPROGESTER one (DEPO-PROVERA) 150 mg/mL injection Inject 150 mg intramuscularly every 12 weeks. Active mirabegron (MYRBETRIQ) 50 mg Tb24 Take 50 mg by mouth once daily. Active acetaminophen (TYLENOL) 325 mg tablet 2 tablets by ORAL/FEEDING TUBE route every 4 hours as needed for pain. 025 Active senna-docusate (SENNA-S) 8.6-50 mg per tablet Take 1 tablet by mouth two times a day as needed for constipation. 100 tablet 02/23/20 25 10:55 AM EDT 025 Active etodolac (LODINE) 400 mg tabletIndication s:Inflammatory arthritis TAKE 1 TABLET BY MOUTH TWICE A DAY NEEDED 60 tablet 3 025 Active predniSONE (DELTASONE) 5 mg tabletIndication s:Inflammatory arthritis TAKE 1 TO 2 TABLETS BY MOUTH EVERY DAY 60 tablet 3 025 Active DULoxetine (CYMBALTA) 60 mg capsuleIndicatio ns:Fibromyalgia TAKE 1 CAPSULE BY MOUTH EVERY DAY 90 capsule 2 025 Active methocarbamol (ROBAXIN) 500 mg tabletIndication s:Chronic daily headache TAKE 1 TABLET BY MOUTH TWICE A DAY NEEDED 45 tablet 2 025 Active nortriptyline (PAMELOR) 10 mg capsuleIndicatio ns:Chronic daily headache Take 1 capsule by mouth daily at bedtime. 30 capsule 3 025 Active hydrOXYchloroQUI NE (PLAQUENIL) 200 mg tablet TAKE 1 TABLET BY MOUTH TWICE A DAY 60 tablet 2 025 Active hydrOXYchloroQUI NE (PLAQUENIL) 200 mg tablet Take 1 tablet by mouth two times a day. 60 tablet 6 024 2024 Discontinued Active Problems Problem Noted Date Diagnosed Date [...] Assessment & Plan (02/21/2025 12:36 PM EDT): [facility] nutrition education Assessment & Plan (02/14/2025 8:19 [...] treating with decadron 8bid (SSI, PPI) with care home taper plan off over 1 week At risk for seizures 02/21/2025 025 Assessment & Plan (02/21/2025 12:38 PM EDT): Treating with periop keppra x 1 week Neoplasm causing mass effect and brain compression on adjacent structures 02/21/202503/29 Assessment & Plan (02/21/2025 12:39 PM EDT): R/t meningioma, noted on preop MRI See meningioma POC Depression 02/14/2025 Encounters Date Type Department Care Team Description 05/17/2025 Refill Neurology Headache [facility] [address] [place] [address] Rachele Fenton, ANESTHESIOLOGY TECHNOLOGIST.STOCK BLENDER Refill Request 05/15/2025 Refill Rheumatology [address] [place] [address] Zulema Mclean MD Refill Request 04/25/2025 Refill Rheumatology [address] [place] [address] Zulema Mclean MD Refill Request 04/12/2025 7:00 AM EDT [facility] Neurology [address] [place] [address] Rachele Fenton, ANESTHESIOLOGY TECHNOLOGIST.STOCK BLENDER Meningioma (HCC) (Primary Dx); Chronic daily headache 04/01/2025 Get Medical Advice [facility] Brain Tumor [place] [address] [place] [address] Erik Pineda MD Incision 03/29/2025 10:30 AM EDT [facility] Brain Tumor [address] [address] [place] [address] Erik Pineda MD Intracranial meningioma (HCC) (Primary Dx); Postprocedural state; Dizziness and giddiness 03/26/2025 [place] [address] Erik Pineda MD Incision 03/20/2025 [place] [address] Erik Pineda MD Antibiotic 03/20/2025 Refill [facility] [address] [place] [address] Donna Patton MD Refill Request 03/19/2025 [place] [address] Erik Pineda MD Incision picture 03/15/2025 12:00 PM [place] [address] S/P craniotomy (Primary Dx) 03/15/2025 Refill [facility] [address] [place], [place] [id number] Donna Patton MD Refill Request 03/15/2025 Travel 03/13/2025 Results Follow-Up Rheumatology [address] [place] [address] Zulema Mclean MD 03/12/2025 Refill Neurology Headache [facility] [address] [place] [address] Rachele Fenton, ANESTHESIOLOGY TECHNOLOGIST.STOCK BLENDER Refill Request 03/08/2025 [place] [address] Shakila Phillips RN Surgical Followup 03/08/2025 Get Medical Advice Neurology Headache [facility] [address] [place] [address] Rachele Fenton ANESTHESIOLOGY TECHNOLOGIST.STOCK BLENDER Nortriptalyne 03/06/2025 10:30 AM EDT Nurse Visit [place] [phone] Shakila Phillips RN S/P craniotomy (Primary Dx); Intracranial meningioma (HCC); Postop check 03/06/2025 Refill Rheumatology [address] [place] [address] Zulema Mclean MD Refill Request 03/02/2025 1:00 PM EDT [facility] Neurosurgery [address] [place] [address] Heather Moy, ANESTHESIOLOGY TECHNOLOGIST.STOCK BLENDER Benign neoplasm of meninges (HCC) (Primary Dx) 02/27/2025 Patient Msg Neurology [address] [place] [phone] Lisa Box RN 02/24/2025 Refill Rheumatology [address] [place] [address] Zulema Mclean MD Refill Request 02/23/2025 Telephone [facility] Tumor [address] [address] [place] [address] Shakila Phillips RN Surgical Followup 02/20/2025 12:45 PM EDT - 02/20/2025 6:45 PM EDT Surgery Admitting [facility] [place] [address] Erik Pineda MD CRANIECTOMY, TREPHINATION, BONE FLAP CRANIOTOMY / EXCISE SUPRATENTORIAL MENINGIOMA 02/20/2025 12:21 PM EDT Anesthesia Event Admitting [address] [place] [address] Zara Ramachandran DO 02/20/2025 11:00 AM EDT - 02/22/2025 3:53 PM EDT Hospital Encounter HOSP MAIN H060 [address] [place] [address] Erik Pineda MD Intracranial meningioma (HCC) [D32.0], Preop testing [Z01.818] Discharge Disposition: Home 02/20/2025 Travel 02/17/2025 Telephone [facility] Tumor [address] [address] [place] [address] Shakila Phillips RN PreOp Call 02/15/2025 2:30 PM EDT [facility] Brain Tumor [place] [address] [place] [phone] Erik Pineda MD Intracranial meningioma (HCC) (Primary Dx) 02/15/2025 Get Medical Advice [facility] Brain Tumor [address] [address] [place] [address] Erik Pineda MD Consent 02/15/2025 Telephone Pre Anesthesia [address] [place] [address] Marli Martin APRN.STOCK BLENDER Patient Update 02/14/2025 8:46 AM EDT - 02/14/2025 11:59 PM EDT Hospital Encounter Radiology [address] [place] [address] Intracranial meningioma (HCC) [D32.0] Discharge Disposition: Home 02/14/2025 7:40 AM EDT PAT Pre Anesthesia [address] [place] [address] 2, Pacc [place] Pre-op evaluation (Primary Dx); Anxiety; Chronic obstructive [...] in adult (HCC); Inflammatory arthritis 02/14/2025 Travel from Last 3 Months Family History Medical [...] National Score (1-100), lower number is lower [facility] 89 06/01/2023 State Score (1-10), lower number is lower risk 8 06/01/2023 Data from: https://www.neighborhoodatlas.medicine.[facility].edu/. Last address used for calculation [address] 06/01/2023 Comments No Sex and Gender [...] 06/22/2025 2:20 PM EDT Office Visit Rheumatology [address] [place] [address] Zulema Mclean MD [address] [facility] [address] [place] [address] 6 month follow up Health Maintenance Due [...] llness Visit 09/14/2024 Influenza Vaccine (#1) 2025 3, 06/18/2022, 07/12/2021, Additional history exists HbA1C 08/17/2025 02/15/2025 HIV Screening Completed 01/05/2006 Hepatitis C Screening Completed 03/04/2021, 006 Medical Devices Implanted Type Area Aviation Neuropsychologist Device Identifier Shelf Expiration Date Model / Serial / Lot Patch Duramatrix-Onla y Plus Collagen 2x2in Dural Regeneration Membrane - [id number] Implanted:Qty: 1 on 02/20/2025 by Erik Pineda MD at [facility] Patch Right: Head - Cranial JAYNE NEUR 01/11/2027 [id number] / / [id number] 2 Plate Bone 8 Hole Profile - [id number] Implanted:Qty: 1 on 02/20/2025 at [facility] Plate Right: Head - Cranial STRY-HOWM CRANIOMAXILLOFACIAL [id number] / / Plate 3d Large Box Low Profile Titanium Bone 2x2 Hole 1.5mm Screw - [id number] Implanted:Qty: 1 on 02/20/2025 at [facility] Plate Right: Head - Cranial STRY-HOWM CRANIOMAXILLOFACIAL [id number] / / Plate Low Profile Titanium 12mm Bone 2 Hole Bar 1.5mm Screw Nonsterile - [id number] Implanted:Qty: 2 on 02/20/2025 at [facility] Plate Right: Head - Cranial STRY-HOWM CRANIOMAXILLOFACIAL [id number] / / Cover 10mm Medium Titanium [place] Hole Low Profile Tab 1.5mm Screws - [id number] Implanted:Qty: 1 on 02/20/2025 at [facility] Plate Right: Head - Cranial STRY-HOWM CRANIOMAXILLOFACIAL [id number] / / Screw Bone [place] [employer] 3 4mm 1.5mm Self Drill Axial Stability Latex - [id number] Implanted:Qty: 11 on 02/20/2025 at [facility] Screw Right: Head - Cranial STRY-HOWM CRANIOMAXILLOFACIAL [id number] / / [place] [employer] Axs Neuro Screw Disc Pre-Loaded 1.5mm X 4mm Implanted:Qty: 17 on 02/20/2025 at [facility] Screw Right: Head - Cranial JAYNE [id number] / / Procedures Procedure Name Priority Date/Time [...] of10 resultswithin the time period is included. [facility] Glucose, Point of Care 145(A) 74 - 99 mg/dL [facility] Comment: Location:[facility], [address] [place] [address], [facility] The Accu-Chek Inform II glucose meter [...] Erik Pineda MD POC TESTING Final Result [facility] POINT OF CARE [facility] [address] [place], [place] * MRI BRAIN WO/W IVCON (02/21/2025 11:17 AM EDT) Anatomical Region Laterality Modality Head Magnetic Resonan ce 02/21/2025 11:1 7 AM EDT Impressions 02/21/2025 12:00 PM EDT IMPRESSION: Expected postoperative changes from right sphenoid wing and middle cranial fossa mass resection. No residual mass or pathologic enhancement. Health Actuary: PSCB Transcribe Date/Time: Feb 21 2025 11:17A Dictated by : CHIKA RUBY MD This examination was interpreted and the report reviewed and electronically signed by: TOMAS AMADOR MD on Feb 21 2025 11:58AM EST Narrative 02/21/2025 12:00 PM EDT * * *Final Report* * * DATE OF EXAM: Feb 21 2025 11:17AM [facility] 0295 - MRI BRAIN WO/W IVCON / PROCEDURE REASON: Brain/FIRE PROTECTION INSPECTOR neoplasm, monitor * * * * Physician [...] air cells. Unremarkable orbits. Procedure Note Provider, [facility] [place] - 02/21/2025 * * *Final Report* * * DATE OF EXAM: Feb 21 2025 11:17AM [facility] 0295 - MRI BRAIN WO/W IVCON / PROCEDURE REASON: Brain/FIRE PROTECTION INSPECTOR neoplasm, monitor * * * * Physician [...] mass resection. No residual mass or pathologicenhancement. Health Actuary: PSCB Transcribe Date/Time: Feb 21 2025 11:17A Dictated by : CHIKA RUYB MD This examination was interpreted and the report reviewed and electronically signed by: TOMAS AMADOR MD on Feb 21 2025 11:58AM EST us Erik Pineda MD MRI-PAMA Final Result * (ABNORMAL) COMPLETE BLOOD COUNT AND DIFFERENTIAL (02/21/2025 4:37 AM EDT) Pathologist [facility] WBC 12.82(H) 3.70 - 11.00 k/uL 02/21/2025 5:11 AM EDT [facility] RBC 3.77(L) 3.90 - 5.20 m/uL 02/21/2025 5:11 AM EDT [facility] Hemoglobin 11.2(L) 11.5 - 15.5 g/dL 02/21/2025 5:11 AM EDT [facility] Hematocrit 34.6(L) 36.0 - 46.0 % 02/21/2025 5:11 AM EDT [facility] MCV 91.8 80.0 - 100.0 fL 02/21/2025 5:11 AM EDT [facility] MCH 29.7 26.0 - 34.0 pg 02/21/2025 5:11 AM EDT [facility] MCHC 32.4 30.5 - 36.0 g/dL 02/21/2025 5:11 AM EDT [facility] RDW-CV 13.2 11.5 - 15.0 % 02/21/2025 5:11 AM EDT [facility] Platelet Count 309 150 - 400 k/uL 02/21/2025 5:11 AM EDT [facility] MPV 10.5 9.0 - 12.7 fL 02/21/2025 5:11 AM EDT [facility] Neutrophils % 85.4 % 02/21/2025 5:11 AM EDT [facility] Abs Neut 10.95(H) 1.45 - 7.50 k/uL 02/21/2025 5:11 AM EDT [facility] Lymphocytes % 6.8 % 02/21/2025 5:11 AM EDT [facility] Abs Lymph 0.87(L) 1.00 - 4.00 k/uL 02/21/2025 5:11 AM EDT [facility] Monocytes % 7.3 % 02/21/2025 5:11 AM EDT [facility] Abs Rice 0.94(H) <0.87 k/uL 02/21/2025 5:11 AM EDT [facility] Eosinophils % 0.0 % 02/21/2025 5:11 AM EDT [facility] Abs Eosin <0.03 <0.46 k/uL 02/21/2025 5:11 AM EDT [facility] Basophils % 0.1 % 02/21/2025 5:11 AM EDT [facility] Abs Baso <0.03 <0.11 k/uL 02/21/2025 5:11 AM EDT [facility] Immature Granulocytes % 0.4 % 02/21/2025 5:11 AM EDT [facility] Abs Immature Gran 0.05 <0.10 k/uL 02/21/2025 5:11 AM EDT [facility] NRBC 0.0 /100 WBC 02/21/2025 5:11 AM EDT [facility] Absolute nRBC <0.01 <0.01 k/uL 02/21/2025 5:11 AM EDT [facility] Diff Type Auto 02/21/2025 5:11 AM EDT [facility] Blood BLOOD SPECIMEN / Unknown Venipuncture / Unknown 02/21/2025 4:37 AM EDT 02/21/2025 4:44 AM EDT us Erik Pineda MD LABORATORY Final Result [facility] [address] [place] [address], * (ABNORMAL) BASIC METABOLIC PANEL (02/21/2025 4:37 AM EDT) Only the most recent of2 resultswithin the time period is included. Glucose 131(H) 74 - 99 mg/dL 02/21/2025 5:17 AM EDT [facility] Comment: The [place] Diabetes Association (ADA) provides guidance for cutoff [...] Standards of Medical Care in Diabetes 2016, Swiss Diabetes Association. Diabetes Care. 2016.39(Suppl 1). BUN 8 7 - 21 mg/dL 02/21/2025 5:17 AM [facility] Creatinine 0.75 0.58 - 0.96 mg/dL 02/21/2025 5:17 AM [facility] Sodium 138 136 - 144 mmol/L 02/21/2025 5:17 AM [facility] Potassium 4.2 3.7 - 5.1 mmol/L 02/21/2025 5:17 AM [facility] Chloride 105 98 - 107 mmol/L 02/21/2025 5:17 AM [facility] CO2 20(L) 22 - 30 mmol/L 02/21/2025 5:17 AM [facility] Anion Gap 13 8 - 15 mmol/L 02/21/2025 5:17 AM [facility] Calcium, Total 8.8 8.5 - 10.2 mg/dL 02/21/2025 5:17 AM [facility] Estimated Glomerular Filtration Rate 99 >=60 mL/min/1.7 3m 02/21/2025 5:17 AM [facility] Comment:Estimated Glomerular Filtration Rate (eGFR) [...] us Erik Pineda MD LABORATORY Final Result [facility] [address] [facility] [place] [address], * (ABNORMAL) ARTERIAL BLOOD GASES WITH IONIZED MAGNESIUM (02/20/2025 3:51 PM EDT) Only the most recent of2 resultswithin the time period is included. pH, Arterial 7.41 7.35 - 7.45 02/20/2025 4:02 PM EDT [facility] pH, Temp Corrected, Arterial 7.41 7.35 - 7.45 02/20/2025 4:02 PM EDT [facility] pCO2, Arterial 33(L) 36 - 46 mm Hg 02/20/2025 4:02 PM EDT [facility] pCO2, Temp Corrected, Arterial 33(L) 36 - 46 mmHg 02/20/2025 4:02 PM EDT [facility] pO2, Arterial 208(H) 85 - 95 mm Hg 02/20/2025 4:02 PM EDT [facility] pO2, Temp Corrected, Arterial 208(H) 85 - 95 mmHg 02/20/2025 4:02 PM EDT [facility] Bicarbonate, Arterial 20(L) 22 - 26 mmol/L 02/20/2025 4:02 PM EDT [facility] O2 Saturation, Arterial 98 95 - 98 % 02/20/2025 4:02 PM EDT [facility] Base Deficit, Arterial -4(L) -2 - 0 mmol/L 02/20/2025 4:02 PM EDT [facility] Oxyhemoglobin, Arterial 96 95 - 98 % 02/20/2025 4:02 PM EDT [facility] Carboxyhemoglo bin, Arterial 0.6 0.0 - 2.0 % 02/20/2025 4:02 PM EDT [facility] Comment:Carboxyhemoglobin Re ference Range for Smokers: 2.0-8.0% Methemoglobin, Arterial 2.1(H) 0.0 - 1.5 % 02/20/2025 4:02 PM EDT [facility] Sodium, Whole Blood 137 136 - 144 mmol/L 02/20/2025 4:02 PM EDT [facility] Potassium, Whole Blood 4.2 3.5 - 5.0 mmol/L 02/20/2025 4:02 PM EDT [facility] Calcium Ionized, Whole Blood 1.11 1.08 - 1.30 mmol/L 02/20/2025 4:02 PM EDT [facility] Calcium Ionized, pH corrected 1.12 1.08 - 1.30 mmol/L 02/20/2025 4:02 PM EDT [facility] Glucose, Whole Blood 113(H) 60 - 105 mg/dL 02/20/2025 4:02 PM EDT [facility] Lactate 1.0 0.5 - 2.2 mmol/L 02/20/2025 4:02 PM EDT [facility] Ionized Magnesium 0.42(L) 0.45 - 0.60 mmol/L 02/20/2025 4:02 PM EDT [facility] Hemoglobin, Whole Blood 10.6(L) 11.5 - 15.5 g/dL 02/20/2025 4:02 PM EDT [facility] Hematocrit, Whole Blood 32.7(L) 36.0 - 46.0 % 02/20/2025 4:02 PM EDT [facility] Blood, Arterial BLOOD SPECIMEN / Unknown 02/20/2025 3:51 PM EDT 02/20/2025 3:58 PM EDT us Zara Ramachandran DO BLOOD GASES Final Resul t [facility] [address] [place] [address], * SURGICAL PATHOLOGY (02/20/2025 3:13 PM EDT) Case Report Surgical Pathology Report Case: [id number] Authorizing Provider: Erik Pineda MD Collected: 02/20/2025 03:13 PM Ordering Location: Admitting Received: 02/20/2025 04:45 PM Pathologist: Brody Olvera MD Specimen: Brain, Resection, right middle sphenoid wing tumor 02/24/2025 3:36 PM EDT [facility] FINAL DIAGNOSIS A. Right middle sphenoid wing region, excision: - Morphologically consistent with meningothelial meningioma, WHO grade 1 02/24/2025 3:36 PM EDT [facility] at 1536 EDT Diagnosis Comment Immunohistochemical staining of the tumor with antibodies to SSTR2a and [place] was performed on block A1. The tumor shows positive staining with both antibodies, consistent with the diagnosis. A Ki-67 index of approximately 2-3% is focally noted. 02/24/2025 3:36 PM EDT [facility] Gross Description A. Brain, Resection Received in formalin, labeled as brain resection, right middle sphenoid wing tumor is a single bryant-brown irregular rubbery tissue measuring 2.1 x 1.3 x 0.5 cm. Sectioning reveals bryant-davidson homogenous cut surfaces. Totally submitted in cassettes A1-A2. CG February 21, 2025 10:13 AM Gross examination performed at [facility], [address] [place] [address] 02/24/2025 3:36 PM EDT [facility] Clinical History Pre-op diagnosis: Intracranial meningioma (HCC) [D32.0] Preop testing [Z01.818] 02/24/2025 3:36 PM EDT [facility] Performing Lab Diagnostic interpretation performed at: [facility], [address] [place] [address], [place] [address] CLIA# [id number] [place] Stitcher: Charan Ryan MD 02/24/2025 3:36 PM EDT [facility] Disclaimer Laboratory Developed Test (LDT) Disclaimer: Performance characteristics of immunohistochemical, immunofluorescent, and chromogenic in-situ hybridization tests have been determined by the performing laboratory within [facility]'s Andrzej Conn Pathology and Laboratory Medicine Department ([facility], [facility], [facility], [facility], [facility], [facility], or [facility]) in a manner consistent with CLIA requirements. One or more of these tests may not have been cleared or approved by the FDA. [facility] is regulated under CLIA as qualified to perform high-complexity testing. These tests are used for clinical purposes. These should not be regarded as investigational or for research. Positive and negative controls stain appropriately. 02/24/2025 3:36 PM EDT [facility] Tissue [facility] CANCER CHECKLIST; BRAIN/SPINAL CORD: BIOPSY/RESECTION / Unknown 02/20/2025 3:13 PM EDT 02/20/2025 4:45 PM EDT Comment:Pre-op diagnosis: Intracranial meningioma (HCC) [D32.0] Preop testing [Z01.818] us Erik Pineda MD SURGICAL PATHOLOGY Final Resu lt [facility] [address] [facility] [place] [id number], [place] * ARTL CATHJ/CANNULJ MNTR/TRANSFUSION SPX PRQ [...] the procedure. Zara Ramachandran DO, Staff Anesthesiologist Zara Ramachandran DO ANESTHESIA ORDERABLES Final Result * Airway [...] Successful intubation technique: video laryngoscopy Devices used: Backplane Endotracheal tube insertion site: oral Blade: Cora [...] EDT 02/15/2025 12:56 PM EDT Marli Martin ANESTHESIOLOGY TECHNOLOGIST.STOCK BLENDER BLOOD BANK Final Res ult [facility] BLOOD BANK [address] [facility] [address] [place] [id number], [place] * HEMOGLOBIN A1C (02/15/2025 12:56 PM EDT) Hemoglobin A1C 5.4 4.3 - 5.6 % 02/16/2025 6:33 AM EDT [facility] Comment:Swiss Diabetes As sociation guidelines indicate that patients with HgbA1c in the range 5.7-6.4% are at increased risk for development of diabetes, and intervention by lifestyle modification may be beneficial. HgbA1c greater or equal to 6.5% is considered diagnostic of diabetes. Estimated Average Glucose 108 mg/dL 02/16/2025 6:33 AM EDT [facility] Comment:eAG: (Estimated aver age glucose) is a calculated value from HgbA1c and is rental representative of the average blood glucose level in the last 2-3 month period. Blood BLOOD SPECIMEN / Unknown Venipuncture / Unknown 02/15/2025 12:56 PM EDT 02/15/2025 12:56 PM EDT Marli Martin ANESTHESIOLOGY TECHNOLOGIST.STOCK BLENDER LABORATORY Final Res ult [facility] [address] [facility] [address] [place] [address], [place] * MRI BRAIN WO/W IVCON (02/14/2025 [...] exam in November 2015. No acute abnormalities. Health Actuary: [facility] Transcribe Date/Time: Feb 14 2025 10:01A Dictated by : SEAN BLOCK MD This examination was interpreted and the report reviewed and electronically signed by: SEAN BLOCK MD on Feb 14 2025 10:22AM EST Narrative 02/14/2025 10:37 AM EDT * * *Final Report* * * DATE OF EXAM: Feb 14 2025 10:37AM [facility] 0295 - MRI BRAIN WO/W [...] tissue mass extending into the of the med surg nurse or parapharyngeal spaces. The soft tissue planes of the, retropharyngeal, and prevertebral spaces are maintained. The visualized parotid glands are normal in appearance. Nasopharynx/Oropharynx: The nasopharynx and oropharynx are normal in appearance. Procedure Note Provider, [facility] [place] - 02/14/2025 * * *Final Report* * * DATE OF EXAM: Feb 14 2025 10:37AM [facility] 0295 - MRI BRAIN WO/W [...] tissue mass extending into the of the med surg nurse or parapharyngeal spaces. The soft tissue planes [...] exam in November 2015. No acute abnormalities. Health Actuary: PSCB Transcribe Date/Time: Feb 14 2025 10:01A Dictated by : SEAN BLOCK MD This examination was interpreted and the report reviewed and electronically signed by: SEAN BLOCK MD on Feb 14 2025 10:22AM EST us Erik Pineda MD MRI-PAMA Final Result * STAPHYLOCOCCUS AUREUS & MRSA SCREEN, PCR, NASAL (02/14/2025 8:19 AM EDT) Staphylococcus aureus DNA Not Detected Not Detected CEPHEID GENEXPERT COVID19 02/14/2025 10:17 PM EDT [facility] Swab POSTERIOR NARES / Unknown Non Blood / Unknown 02/14/2025 8:19 AM EDT 02/14/2025 8:20 AM EDT us Erik Pineda MD LABORATORY Final Result [facility] [address] [place] [address], * TYPE AND SCREEN,30 DAY (02/14/2025 8:19 AM EDT) ABO A 02/14/2025 5:02 PM EDT [facility] Rh(D) Negative 02/14/2025 5:02 PM EDT [facility] Antibody Screen Negative 02/14/2025 5:02 PM EDT [facility] Blood BLOOD SPECIMEN / Unknown Venipuncture / Unknown 02/14/2025 8:19 AM EDT 02/14/2025 8:20 AM EDT us Erik Pineda MD BLOOD BANK Final Result [facility] [address] [place] [address], [place] * SEDIMENTATION RATE, WESTERGREN (02/14/2025 8:19 AM EDT) Sed Rate, Westergren 2 0 - 20 mm/hr 02/14/2025 5:30 PM EDT [facility] Blood BLOOD SPECIMEN / Unknown Venipuncture / Unknown 02/14/2025 8:19 AM EDT 02/14/2025 8:20 AM EDT us Zulema Mclean MD LABORATORY Final Result Performing Organization Address [facility] Co de Phone Number [facility] [address] [place] [address], [place] * COMPLETE BLOOD COUNT (02/14/2025 8:19 AM EDT) WBC 7.27 3.70 - 11.00 k/uL 02/14/2025 2:28 PM EDT [facility] RBC 4.21 3.90 - 5.20 m/uL 02/14/2025 2:28 PM EDT [facility] Hemoglobin 12.6 11.5 - 15.5 g/dL 02/14/2025 2:28 PM EDT [facility] Hematocrit 39.2 36.0 - 46.0 % 02/14/2025 2:28 PM EDT [facility] MCV 93.1 80.0 - 100.0 fL 02/14/2025 2:28 PM EDT [facility] MCH 29.9 26.0 - 34.0 pg 02/14/2025 2:28 PM EDT [facility] MCHC 32.1 30.5 - 36.0 g/dL 02/14/2025 2:28 PM EDT [facility] RDW-CV 13.4 11.5 - 15.0 % 02/14/2025 2:28 PM EDT [facility] Platelet Count 329 150 - 400 k/uL 02/14/2025 2:28 PM EDT [facility] MPV 10.9 9.0 - 12.7 fL 02/14/2025 2:28 PM EDT [facility] Absolute nRBC <0.01 <0.01 k/uL 02/14/2025 2:28 PM EDT [facility] Blood BLOOD SPECIMEN / Unknown Venipuncture / Unknown 02/14/2025 8:19 AM EDT 02/14/2025 8:20 AM EDT us Zulema Mclean MD LABORATORY Final Result Performing Organization Address City/[facility]/ZIP Co de Phone Number [facility] [address] [place] [address], [place] * C-REACTIVE PROTEIN (02/14/2025 8:19 AM EDT) CRP 0.6 <0.9 mg/dL 02/14/2025 8:59 PM EDT [facility] Blood BLOOD SPECIMEN / Unknown Venipuncture / Unknown 02/14/2025 8:19 AM EDT 02/14/2025 8:20 AM EDT us Zulema Mclean MD LABORATORY Final Result Performing Organization Address City/[facility]/ZIP Co de Phone Number [facility] [address] [place] [address], [place] * ASPARTATE AMINOTRANSFERASE/SGOT (02/14/2025 8:19 AM EDT) AST 20 13 - 35 U/L 02/14/2025 8:59 PM EDT [facility] Blood BLOOD SPECIMEN / Unknown Venipuncture / Unknown 02/14/2025 8:19 AM EDT 02/14/2025 8:20 AM EDT us Zulema Mclean MD LABORATORY Final Result [facility] [address] [facility] [address] [address], * ALANINE AMINOTRANSFERASE / SGPT (02/14/2025 8:19 AM EDT) ALT 27 7 - 38 U/L 02/14/2025 8:59 PM EDT [facility] Blood BLOOD SPECIMEN / Unknown Venipuncture / Unknown 02/14/2025 8:19 AM EDT 02/14/2025 8:20 AM EDT us Zulema Mclean MD LABORATORY Final Result Performing Organization Address [facility] Co de Phone Number [facility] [address] [facility] [address] [address], * ECG COMPLETE (02/14/2025 7:00 AM EDT) Ventricular Rate 77 BPM [facility] Atrial Rate 77 BPM [facility] P-R Interval 138 ms [facility] QRS Duration 82 ms [facility] QT Interval 386 ms [facility] QTC Calculation (Bazett) 436 ms [facility] Calculated P Colp 36 degrees [facility] Calculated R Colp 47 degrees [facility] Calculated T Colp 47 degrees [facility] 02/14/2025 7:00 AM EDT Impressions [facility] - 02/14/2025 1:23 PM EDT NORMAL SINUS RHYTHM NORMAL ECG Confirmed by DI YORK M.D. ([id number]) on 02/14/2025 1:23:03 PM Narrative [facility] - 02/14/2025 1:23 PM EDT NAME : KOURTNEY NOVAK PID : [id number] : 1975 Gender : Female Race : [...] am, us [facility] Provider EKG Final Result [facility] [address] [place] [id number] * HEP REMOTE PANEL BL (03/04/2021 1:39 PM EDT) Pathologist [facility] Hep B Core Ab, Total Negative Negative 03/04/2021 6:54 PM EDT [facility] Hep C Antibody IA Negative Negative 03/04/2021 6:55 PM EDT [facility] HBsAg Negative Negative 03/04/2021 6:54 PM EDT [facility] Hep B Surface Ab, Qual Negative Negative 03/04/2021 6:55 PM EDT [facility] Comment:NEGATIVE Blood 03/04/2021 1:39 PM EDT 03/04/2021 1:41 PM EDT Zulema Mclean MD LABORATORY Final Result Performing Organization Address [facility] de Phone Number [facility] [address] [place] [address] [facility] [address] [place] [address] * HIV AB 1&2 SCREEN (01/05/2006 3:17 PM EDT) HIV 1 & 2 Ab (EIA) Non Reactive NR [facility] Comment: If results are indeterminate or otherwise inconsistent with an individual's clinical presentation or risk profile for HIV infection a repeat specimen is requested. A repeat specimen is also recommended for any individual identified positive for the first time. 01/05/2006 3:17 PM EDT us Wade Iqbal LABORATORY Final Result Performing Organization Address City/[facility]/ZIP Co de Phone Number [facility] [address] [place] [address] from Last 3 Months or Most Recently Relevant to Health Maintenance Insurance [place] Member Subscriber Plan / Payer (Ef fective 2024-Present) Name:Kourtney Novak Alex Relation to Subscriber:Self Name:Kourtney Novak Alex Payer ID:Not on file Group ID:Not on file Type:Medicaid Address: [address] [place] [id number] [employer] O Care Teams Associate Professor Of Literature Relationship Specialty Start Date End Date Jesus Camacho MD [address] [place] [address] PCP - General Family Medicine 05/12/23 Jesus Camacho MD Referring Family Medicine 01/14/21 Jesus Camacho MD [address] [place] [address] Referring Family Medicine 05/12/23
--- OUTSIDE RECORDS SUMMARY | 2025-05-17 13:07 | XMS_ITS | Encounter Summary ---
Author Organization [facility] Address [facility] [place] [address] Care Team Providers Care Meat Lugger Name Role Phone Jesus Camacho MD Unavailable [phone] Jesus Camacho MD Unavailable [phone] Jesus Camacho MD Primary Care Provider [phone] Source Comments In the event this information is protected by the Federal Confidentiality of Alcohol and Drug AbusePatient Records regulations: The Federal rules restrict any use of the information to criminally investigate or prosecute any alcohol or drug abuse patient.[facility] Encounter Details Date Type Department Care Team (Late st Contact Info) Description 12/30/2024 Get Medical Advice [facility] [address] [place] [address] Jacky Pineda MD [address] [place] [address] Eye test results Social History [...] lower risk 8 06/01/2023 Data from: https://www.neighborhoodatlas.medicine.[facility]/. Last address used for calculation [...] 06/22/2025 2:20 PM EDT Office Visit Rheumatology [address] [place] [address] Zulema Mclean MD [address] [facility] [address] [place] [address] 6 month follow up documented as of this encounter Visit Diagnoses Not on filedocumented in this encounter Care Teams Meat Lugger Relationship Specialty Start Date End Date Jesus Camacho MD [address] [place] [address] PCP - General Family Medicine 05/12/23 Jesus Camacho MD Referring Family Medicine 01/14/21 Jesus Camacho MD [address] [place] [id number] Referring Family Medicine 05/12/23 documented as of this encounter
--- OUTSIDE RECORDS SUMMARY | 2025-05-17 13:07 | XMS_ITS | Encounter Summary ---
Author Organization [facility] Address [address] [place] [address] Care Team Providers Care Alternative Education Teacher Name Role Phone Jesus Camacho MD Unavailable [phone] Jesus Camacho MD Unavailable [phone] Jesus Camacho MD Primary Care Provider [phone] Source Comments In the event this information is protected by the Federal Confidentiality of Alcohol and Drug AbusePatient Records regulations: The Federal rules restrict any use of the information to criminally investigate or prosecute any alcohol or drug abuse patient.[facility] Encounter Details Date Type Department Care Team (Late st Contact Info) Description 11/30/2023 Patient Msg Rheumatology [address] [place] [address] Provider, Ccf Eye exam Social [...] is lower risk 8 06/01/2023 Data from: https://www.neighborhoodatlas.medicine.[facility]/. Last address used for calculation [address] 06/01/2023 Comments No Sex and [...] 06/22/2025 2:20 PM EDT Office Visit Rheumatology [address] [place] [address] Zulema Mclean MD [address] [facility] [address] [place] [address] 6 month follow up documented as of this encounter Visit Diagnoses Not on filedocumented in this encounter Care Teams Alternative Education Teacher Relationship Specialty Start Date End Date Jesus Camacho MD [address] [place] [address] PCP - General Family Medicine 05/12/23 Jesus Camacho MD Referring Family Medicine 01/14/21 Jesus Camacho MD [address] [place] [address] Referring Family Medicine 05/12/23 documented as of this encounter
--- OUTSIDE RECORDS SUMMARY | 2025-05-17 13:07 | XMS_ITS | Encounter Summary ---
Author Organization [facility] Address [address] [place] [address] Care Team Providers Care Legal Cashier Name Role Phone Jesus Camacho MD Unavailable [phone] Jesus Camacho MD Unavailable [phone] Jesus Camacho MD Primary Care Provider [phone] Source Comments In the event this information is protected by the Federal Confidentiality of Alcohol and Drug AbusePatient Records regulations: The Federal rules restrict any use of the information to criminally investigate or prosecute any alcohol or drug abuse patient.[facility] Encounter Details Date Type Department Care Team (Late st Contact Info) Description 12/11/2024 Get Medical Advice Neurology Headache [facility] [address] [place] [address] Racehle Fenton, MARILEE.COURT ORDERLY [address] [place] [address] Medicine Social History Tobacco Use [...] lower risk 8 06/01/2023 Data from: https://www.neighborhoodatlas.medicine.[facility]/. Last address used for calculation [address] [facility] 06/01/2023 Comments No Sex and [...] 06/22/2025 2:20 PM EDT Office Visit Rheumatology [address] [place] [address] Zulema Mclean MD [address] [facility] [address] [place] [address] 6 month follow up documented as of this encounter Visit Diagnoses Not on filedocumented in this encounter Care Teams Legal Cashier Relationship Specialty Start Date End Date Jesus Camacho MD [address] [place] [address] PCP - General Family Medicine 05/12/23 Jesus Camacho MD Referring Family Medicine 01/14/21 Jesus Camacho MD [address] [place] [address] Referring Family Medicine 05/12/23 documented as of this encounter
--- OUTSIDE RECORDS SUMMARY | 2025-05-17 13:07 | XMS_ITS | Encounter Summary ---
Author Organization [facility] Address [address] [place] [address] Care Team Providers Care Spearer Name Role Phone Jesus Camacho MD Unavailable [phone] Jesus Camacho MD Unavailable [phone] Jesus Camacho MD Primary Care Provider [phone] Source Comments In the event this information is protected by the Federal Confidentiality of Alcohol and Drug AbusePatient Records regulations: The Federal rules restrict any use of the information to criminally investigate or prosecute any alcohol or drug abuse patient.[facility] Encounter Details Date Type Department Care Team (Late st Contact Info) Description 12/31/2022 Patient Msg Hematology [address] [place] [address] Provider, Ccf Dr. Mclean Appointment Social History Tobacco Use Types Packs/Day Years Used Date Smoking Tobacco: Former Smokeless Tobacco: Never PHQ-2 Answer Date Recorded PHQ-2 score 1 09/22/2022 Area Deprivation Index Answer Date Eliseo rded National Score (1-100), lower number is lower ri sk 90 09/29/2022 State Score (1-10), lower number is lower risk N ot on file 09/29/2022 Data from: https://www.neighborhoodatlas.medicine.[facility].edu/. Last address used for calculation [address] 09/29/2022 Comments No Sex and Gender [...] 06/22/2025 2:20 PM EDT Office Visit Rheumatology [address] [place] [address] Zulema Mclean MD [address] [facility] [address] [place], [place] [id number] 6 month follow up documented as of this encounter Visit Diagnoses Not on filedocumented in this encounter Care Teams Spearer Relationship Specialty Start Date End Date Jesus Camacho MD [address] [place] [address] PCP - General Family Medicine 05/12/23 Jesus Camacho MD Referring Family Medicine 01/14/21 Jesus Camacho MD [address] [place] [address] Referring Family Medicine 05/12/23 documented as of this encounter
--- OUTSIDE RECORDS SUMMARY | 2025-05-17 13:07 | XMS_ITS | Encounter Summary ---
Author Organization [facility] Address [address] [place] [address] Care Team Providers Care Tso Name Role Phone Jesus Camacho MD Unavailable [phone] Jesus Camacho MD Unavailable [phone] Jesus Camacho MD Primary Care Provider [phone] Source Comments In the event this information is protected by the Federal Confidentiality of Alcohol and Drug AbusePatient Records regulations: The Federal rules restrict any use of the information to criminally investigate or prosecute any alcohol or drug abuse patient.[facility] Encounter Details Date Type Department Care Team (Late st Contact Info) Description 01/27/2024 [place] [address] Provider, Ccf Questionnaire Submission Social History Tobacco [...] is lower risk 8 06/01/2023 Data from: https://www.neighborhoodatlas.medicine.[facility].edu/. Last address used for calculation [address] [...] 06/22/2025 2:20 PM EDT Office Visit Rheumatology [address] [place] [address] Zulema Mclean MD [address] [facility] [address] [place], [place] [id number] 6 month follow up documented as of this encounter Visit Diagnoses Not on filedocumented in this encounter Care Teams Tso Relationship Specialty Start Date End Date Jesus Camacho MD [address] [place] [address] PCP - General Family Medicine 05/12/23 Jesus Camacho MD Referring Family Medicine 01/14/21 Jesus Camacho MD [address] [place] [address] Referring Family Medicine 05/12/23 documented as of this encounter
--- OUTSIDE RECORDS SUMMARY | 2025-05-17 13:07 | XMS_ITS | Encounter Summary ---
Author Organization [facility] Address [address] [place] [address] Care Team Providers Care Wool Sacker Name Role Phone Jesus Camacho MD Unavailable [phone] Jesus Camacho MD Unavailable [phone] Jesus Camacho MD Primary Care Provider [phone] Source Comments In the event this information is protected by the Federal Confidentiality of Alcohol and Drug AbusePatient Records regulations: The Federal rules restrict any use of the information to criminally investigate or prosecute any alcohol or drug abuse patient.[facility] Encounter Details Date Type Department Care Team (Late st Contact Info) Description 01/19/2025 Patient Msg Spine [place] [address] [place] [address] Provider, Ccf Pre Surgery appointments [...] lower risk 8 06/01/2023 Data from: https://www.neighborhoodatlas.medicine.[facility].edu/. Last address used for calculation [address] [...] 06/22/2025 2:20 PM EDT Office Visit Rheumatology [address] [place] [address] Zulema Mclean MD [address] [facility] [address] [place] [address] 6 month follow up documented as of this encounter Visit Diagnoses Not on filedocumented in this encounter Care Teams Wool Sacker Relationship Specialty Start Date End Date Jesus Camacho MD [address] [place] [address] PCP - General Family Medicine 05/12/23 Jesus Camacho MD Referring Family Medicine 01/14/21 Jesus Camacho MD [address] [place] [address] Referring Family Medicine 05/12/23 documented as of this encounter
--- OUTSIDE RECORDS SUMMARY | 2025-05-17 13:07 | XMS_ITS | Encounter Summary ---
Author Organization [facility] Address [facility] [place] [address] Care Team Providers Care Benefits Counselor Name Role Phone Jesus Camacho MD Unavailable [phone] Jesus Camacho MD Unavailable [phone] Jesus Camacho MD Primary Care Provider [phone] Source Comments In the event this information is protected by the Federal Confidentiality of Alcohol and Drug AbusePatient Records regulations: The Federal rules restrict any use of the information to criminally investigate or prosecute any alcohol or drug abuse patient.[facility] Encounter Details Date Type Department Care Team (Late st Contact Info) Description 03/13/2025 Results Follow-Up Rheumatology [address] [place] [address] Zulema Mclean MD [address] [facility] [address] [place] [address] Social History Tobacco Use Types Packs/Day Years [...] lower risk 8 06/01/2023 Data from: https://www.neighborhoodatlas.medicine.[facility]/. Last address used for calculation [address] [facility] 06/01/2023 Comments No Sex and Gender [...] 06/22/2025 2:20 PM EDT Office Visit Rheumatology [address] [place] [address] Zulema Mclean MD [address] [facility] [address] [place] [address] 6 month follow up documented as of this encounter Visit Diagnoses Not on filedocumented in this encounter Care Teams Benefits Counselor Relationship Specialty Start Date End Date Jesus Camacho MD [address] [place] [address] PCP - General Family Medicine 05/12/23 Jesus Camacho MD Referring Family Medicine 01/14/21 Jesus Camacho MD [address] [place] [address] Referring Family Medicine 05/12/23 documented as of this encounter
--- OUTSIDE RECORDS SUMMARY | 2025-05-17 13:07 | XMS_ITS | Encounter Summary ---
Author Organization [facility] Address [address] [place] [address] Care Team Providers Care Head Kiln Operator Name Role Phone Jesus Camacho MD Unavailable [phone] Jesus Camacho MD Unavailable [phone] Jesus Camacho MD Primary Care Provider [phone] Source Comments In the event this information is protected by the Federal Confidentiality of Alcohol and Drug AbusePatient Records regulations: The Federal rules restrict any use of the information to criminally investigate or prosecute any alcohol or drug abuse patient.[facility] Encounter Details Date Type Department Care Team (Late st Contact Info) Description 03/08/2025 Get Medical Advice Neurology Headache [facility] [address] [place] [address] Rachele Fenton, MARILEE.BIODIESEL PROCESS CONTROL TECHNICIAN [address] [place] [address] Nortriptalyne Social History Tobacco Use [...] is lower risk 8 06/01/2023 Data from: https://www.neighborhoodatlas.medicine.[facility]/. Last address used for calculation [address] [...] 06/22/2025 2:20 PM EDT Office Visit Rheumatology [address] [place] [address] Zulema Mclean MD [address] [place] [address] 6 month follow up documented as of this encounter Visit Diagnoses Not on filedocumented in this encounter Care Teams Head Kiln Operator Relationship Specialty Start Date End Date Jesus Camacho MD [address] [place] [address] PCP - General Family Medicine 05/12/23 Jesus Camacho MD Referring Family Medicine 01/14/21 Jesus Camacho MD [address] [place] [address] Referring Family Medicine 05/12/23 documented as of this encounter
--- OUTSIDE RECORDS SUMMARY | 2025-05-17 13:07 | XMS_ITS | Encounter Summary ---
Author Organization [facility] [place] [address] Care Team Providers Care Commercial Fisher Name Role Phone Jesus Camacho MD Unavailable [phone] Jesus Camacho MD Unavailable [phone] Jesus Camacho MD Primary Care Provider [phone] Source Comments In the event this information is protected by the Federal Confidentiality of Alcohol and Drug AbusePatient Records regulations: The Federal rules restrict any use of the information to criminally investigate or prosecute any alcohol or drug abuse patient.[facility] Encounter Details Date Type Department Care Team (Late st Contact Info) Description 01/03/2025 Get Medical Advice [facility] [address] [place] [address] Jacky Pienda MD [address] [place] [address] Testing Social History Tobacco Use [...] is lower risk 8 06/01/2023 Data from: https://www.neighborhoodatlas.medicine.[facility]/. Last address used for calculation [...] 06/22/2025 2:20 PM EDT Office Visit Rheumatology [address] [place] [address] Zulema Mclean MD [address] [facility] [address] [place] [address] 6 month follow up documented as of this encounter Visit Diagnoses Not on filedocumented in this encounter Care Teams Commercial Fisher Relationship Specialty Start Date End Date Jesus Camacho MD [address] [place] [address] PCP - General Family Medicine 05/12/23 Jesus Camacho MD Referring Family Medicine 01/14/21 Jesus Camacho MD [address] [place] [address] Referring Family Medicine 05/12/23 documented as of this encounter
--- OUTSIDE RECORDS SUMMARY | 2025-05-17 13:07 | XMS_ITS | Encounter Summary ---
Author Organization [facility] Address [facility] [place] [address] Care Team Providers Care Technical Services Consultant Name Role Phone Jesus Camacho MD Unavailable [phone] Jesus Camacho MD Unavailable [phone] Jesus Camacho MD Primary Care Provider [phone] Source Comments In the event this information is protected by the Federal Confidentiality of Alcohol and Drug AbusePatient Records regulations: The Federal rules restrict any use of the information to criminally investigate or prosecute any alcohol or drug abuse patient.[facility] Encounter Details Date Type Department Care Team (Late st Contact Info) Description 12/01/2024 Get Medical Advice [facility] [address] [place] [address] Jacky Pineda MD [address] [place] [address] Surgery Social History Tobacco Use [...] is lower risk 8 06/01/2023 Data from: https://www.neighborhoodatlas.medicine.[facility]/. Last address used for calculation [address] [...] 06/22/2025 2:20 PM EDT Office Visit Rheumatology [address] [place] [address] Zulema Mclean MD [address] [facility] [address] [place] [address] 6 month follow up documented as of this encounter Visit Diagnoses Not on filedocumented in this encounter Care Teams Technical Services Consultant Relationship Specialty Start Date End Date Jesus Camacho MD [address] [place] [address] PCP - General Family Medicine 05/12/23 Jesus Camacho MD Referring Family Medicine 01/14/21 Jesus Camacho MD [address] [place] [address] Referring Family Medicine 05/12/23 documented as of this encounter
--- OUTSIDE RECORDS SUMMARY | 2025-05-17 13:07 | XMS_ITS | Encounter Summary ---
Author Organization [facility] Address [facility] [place] [address] Care Team Providers Care Screw Machine Set Up Operator Name Role Phone Jesus Camacho MD Unavailable [phone] Jesus Camacho MD Unavailable [phone] Jesus Camacho MD Primary Care Provider [phone] Source Comments In the event this information is protected by the Federal Confidentiality of Alcohol and Drug AbusePatient Records regulations: The Federal rules restrict any use of the information to criminally investigate or prosecute any alcohol or drug abuse patient.[facility] Encounter Details Date Type Department Care Team (Late st Contact Info) Description 10/08/2023 Get Medical Advice [facility] [address] [place] [address] Jacky Pineda MD [address] [place] [address] Eye problems Social History Tobacco [...] is lower risk 8 06/01/2023 Data from: https://www.neighborhoodatlas.medicine.[facility]/. Last address used for calculation [...] 06/22/2025 2:20 PM EDT Office Visit Rheumatology [address] [place] [address] Zulema Mclean MD [address] [facility] [address] [place] [address] 6 month follow up documented as of this encounter Visit Diagnoses Not on filedocumented in this encounter Care Teams Screw Machine Set Up Operator Relationship Specialty Start Date End Date Jesus Camacho MD [address] [place] [address] PCP - General Family Medicine 05/12/23 Jesus Camacho MD Referring Family Medicine 01/14/21 Jesus Camacho MD [address] [place] [address] Referring Family Medicine 05/12/23 documented as of this encounter
--- OUTSIDE RECORDS SUMMARY | 2025-05-17 13:07 | XMS_ITS | Encounter Summary ---
Author Organization [facility] Address [facility] [place] [address] Care Team Providers Care [place] Dental Lab Technician Name Role Phone Jesus Camacho MD Unavailable Jesus Camacho MD Unavailable [phone] Jesus Camacho MD Primary Care Provider [phone] Source Comments In the event this information is protected by the Federal Confidentiality of Alcohol and Drug AbusePatient Records regulations: The Federal rules restrict any use of the information to criminally investigate or prosecute any alcohol or drug abuse patient.[facility] Encounter Details Date Type Department Care Team (Late st Contact Info) Description 11/02/2022 Get Medical Advice Rheumatology [address] [place] [address] Zulema Mclean MD [address] [facility] [address] [place], [place] [id number] Fibromyalgia Social History Tobacco Use Types Packs/Day Years Used Date Smoking Tobacco: Former Smokeless Tobacco: Never PHQ-2 Answer Date Recorded PHQ-2 score 1 09/22/2022 Area Deprivation Index Answer Date Eliseo rded National Score (1-100), lower number is lower ri sk 90 09/29/2022 State Score (1-10), lower number is lower risk N ot on file 09/29/2022 Data from: https://www.neighborhoodatlas.medicine.[facility]/. Last address used for calculation [address] [...] 06/22/2025 2:20 PM EDT Office Visit Rheumatology [address] [place] [address] Zulema Mclean MD [address] [facility] [address] [place] [address] 6 month follow up documented as of this encounter Visit Diagnoses Not on filedocumented in this encounter Care Teams [place] Dental Lab Technician Relationship Specialty Start Date End Date Jesus Camacho MD [address] [place] [address] PCP - General Family Medicine 05/12/23 Jesus Camacho MD Referring Family Medicine 01/14/21 Jesus Camacho MD [address] [place] [address] Referring Family Medicine 05/12/23 documented as of this encounter
--- OUTSIDE RECORDS SUMMARY | 2025-05-17 13:07 | XMS_ITS | Encounter Summary ---
Author Organization [facility] Address [address] [place] [address] Care Team Providers Care Concrete Pourer Name Role Phone Jesus Camacho MD Unavailable [phone] Jesus Camacho MD Unavailable [phone] Jesus Camacho MD Primary Care Provider [phone] Source Comments In the event this information is protected by the Federal Confidentiality of Alcohol and Drug AbusePatient Records regulations: The Federal rules restrict any use of the information to criminally investigate or prosecute any alcohol or drug abuse patient.[facility] Encounter Details Date Type Department Care Team (Late st Contact Info) Description 02/09/2024 Get Medical Advice Neurology Headache [facility] [address] [address] Rachele Fenton, MARILEE.PRODUCT ANALYST [address] [place] [address] Medicine Social History Tobacco Use [...] risk 8 06/01/2023 Data from: https://www.neighborhoodatlas.medicine.[facility]/. Last address used for calculation [address] [facility] 06/01/2023 Comments No Sex and Gender [...] 06/22/2025 2:20 PM EDT Office Visit Rheumatology [address] [place] [address] Zulema Mclean MD [address] [address] [place] [address] 6 month follow up documented as of this encounter Visit Diagnoses Not on filedocumented in this encounter Care Teams Concrete Pourer Relationship Specialty Start Date End Date Jesus Camacho MD [address] [place] [address] PCP - General Family Medicine 05/12/23 Jesus Camacho MD Referring Family Medicine 01/14/21 Jesus Camacho MD [address] [place] [address] Referring Family Medicine 05/12/23 documented as of this encounter
--- OUTSIDE RECORDS SUMMARY | 2025-05-17 13:07 | XMS_ITS | Clinical Summary ---
Author Organization [facility] Address [address] [facility] [place] [address] Care Team Providers Care Business Technology Professor Name Role Phone Unavailable Primary Care Provider Unavailabl e Source Comments The following information is NOT included in Care Everywhere downloads:Psychiatric notes, ECG results, Cardiac Rehab notes, Pulmonary Function notes, data from [employer] (includes but not limited toPregnancy data,audiograms, eye exams, pre-surgical evaluation notes, well-child exam data).[facility] Active Problems Problem Noted Date Diagnosed Date Corneal edema due to wearing of contact lenses 0 11/18/2004 Social History Tobacco Use Types Packs/Day Years Used Date Smoking Tobacco: Never Assessed Comments Unknown Sex and Gender Information Value Date Recorded Sex Assigned at Not on file Legal Sex Female 12:01 PM EST Gender Identity Not on file Sexual Orientation Not on file Plan of Treatment Health Maintenance Due Date Last Done Comments Colonoscopy 1977 HIV Test 1992 Hepatitis C Antibody 1995 Tdap Booster 1995 Hepatitis A (HAV) Vaccine (optional start 19+ years) 1996 Hepatitis B (HBV) Vaccine (1 of 3 - 19+ 3-dose series) 1996 Tetanus (Td or Tdap) Booster 1996 Pap Smear 1998 Mammography 2017 CRC Screening 2022 Cholesterol 2022 Cologuard (Stool DNA) 2022 FIT 2022 COVID-19 Vaccine ( - 2023-2 5 season) 2025 Influenza Vaccine (#1) 2025 Shingles (RZV) Vaccine (1 of 2) 2027 Pneumococcal Vaccine(s) Aged Out No l onger eligible based on patient's age to complete this topic Insurance [facility]
--- OUTSIDE RECORDS SUMMARY | 2025-05-17 13:07 | XMS_ITS | Encounter Summary ---
Author Organization [facility] Address [facility] [place] [address] Care Team Providers Care Automobile Glass Technician Name Role Phone Jesus Camacho MD Unavailable [phone] Jesus Camacho MD Unavailable [phone] Jesus Camacho MD Primary Care Provider [phone] Source Comments In the event this information is protected by the Federal Confidentiality of Alcohol and Drug AbusePatient Records regulations: The Federal rules restrict any use of the information to criminally investigate or prosecute any alcohol or drug abuse patient.[facility] Encounter Details Date Type Department Care Team (Late st Contact Info) Description 12/09/2024 Get Medical Advice [facility] [address] [place] [id number] Jacky Pineda MD [address] [place] [address] Kourtney Novak Social History Tobacco [...] is lower risk 8 06/01/2023 Data from: https://www.neighborhoodatlas.medicine.[facility]/. Last address used for calculation [address] [facility] 06/01/2023 Comments No Sex and [...] 06/22/2025 2:20 PM EDT Office Visit Rheumatology [address] [place] [address] Zulema Mclean MD [address] [facility] [address] [place] [address] 6 month follow up documented as of this encounter Visit Diagnoses Not on filedocumented in this encounter Care Teams Automobile Glass Technician Relationship Specialty Start Date End Date Jesus Camacho MD [address] [place] [address] PCP - General Family Medicine 05/12/23 Jesus Camacho MD Referring Family Medicine 01/14/21 Jesus Camacho MD [address] [place] [address] Referring Family Medicine 05/12/23 documented as of this encounter
--- OUTSIDE RECORDS SUMMARY | 2025-05-17 13:07 | XMS_ITS | Encounter Summary ---
Author Organization [facility] Address [facility] [place] [address] Care Team Providers Care Marketing Executive Name Role Phone Jesus Camacho MD Unavailable [phone] Jesus Camacho MD Unavailable [phone] Jesus Camacho MD Primary Care Provider [phone] Source Comments In the event this information is protected by the Federal Confidentiality of Alcohol and Drug AbusePatient Records regulations: The Federal rules restrict any use of the information to criminally investigate or prosecute any alcohol or drug abuse patient.[facility] Encounter Details Date Type Department Care Team (Late st Contact Info) Description 12/14/2024 Get Medical Advice [facility] [address] [place] [address] Jacky Pineda MD [address] [place] [address] Eye test Social History Tobacco [...] lower risk 8 06/01/2023 Data from: https://www.neighborhoodatlas.medicine.[facility]/. Last [facility] used for calculation [address] [facility] 06/01/2023 Comments No Sex and [...] 06/22/2025 2:20 PM EDT Office Visit Rheumatology [address] [place] [address] Zulema Mclean MD [address] [facility] [address] [place] [address] 6 month follow up documented as of this encounter Visit Diagnoses Not on filedocumented in this encounter Care Teams Marketing Executive Relationship Specialty Start Date End Date Jesus Camacho MD [address] [place] [address] PCP - General Family Medicine 05/12/23 Jesus Camacho MD Referring Family Medicine 01/14/21 Jesus Camacho MD [address] [place] [address] Referring Family Medicine 05/12/23 documented as of this encounter
--- OUTSIDE RECORDS SUMMARY | 2025-05-17 13:07 | XMS_ITS | Encounter Summary ---
Author Organization [facility] Address [address] [place] [address] Care Team Providers Care Bread Stacker Name Role Phone Jesus Camacho MD Unavailable Jesus Camacho MD Unavailable [phone] Jesus Camacho MD Primary Care Provider [phone] Source Comments In the event this information is protected by the Federal Confidentiality of Alcohol and Drug AbusePatient Records regulations: The Federal rules restrict any use of the information to criminally investigate or prosecute any alcohol or drug abuse patient.[facility] Encounter Details Date Type Department Care Team (Late st Contact Info) Description 01/13/2025 Get Medical Advice [facility] [address] [place] [address] Jacky Pineda MD [address] [place] [address] Surgery question Social History Tobacco [...] risk 8 06/01/2023 Data from: https://www.neighborhoodatlas.medicine.[facility]/. Last address used for calculation [address] [facility]23 Comments No Sex and Gender Information [...] 06/22/2025 2:20 PM EDT Office Visit Rheumatology [address] [place] [address] Zulema Mclean MD [address] [facility] [address] [place] [address] 6 month follow up documented as of this encounter Visit Diagnoses Not on filedocumented in this encounter Care Teams Bread Stacker Relationship Specialty Start Date End Date Jesus Camacho MD [address] [place] [address] PCP - General Family Medicine 05/12/23 Jesus Camacho MD Referring Family Medicine 01/14/21 Jessu Camacho MD [address] [place] [address] Referring Family Medicine 05/12/23 documented as of this encounter
--- OUTSIDE RECORDS SUMMARY | 2025-05-17 13:07 | XMS_ITS | Encounter Summary ---
Author Organization [facility] Address [facility] [place] [address] Care Team Providers Care Consumer Experience Consultant Name Role Phone Jesus Camacho MD Unavailable [phone] Jesus Camacho MD Unavailable [phone] Jesus Camacho MD Primary Care Provider [phone] Source Comments In the event this information is protected by the Federal Confidentiality of Alcohol and Drug AbusePatient Records regulations: The Federal rules restrict any use of the information to criminally investigate or prosecute any alcohol or drug abuse patient.[facility] Encounter Details Date Type Department Care Team (Late st Contact Info) Description 01/31/2024 Get Medical Advice [facility] [address] [place] [address] Jacky Pineda MD [address] [place] [address] MRI Social History Tobacco Use [...] is lower risk 8 06/01/2023 Data from: https://www.neighborhoodatlas.medicine.[facility]/. Last address used [...] 06/22/2025 2:20 PM EDT Office Visit Rheumatology [address] [place] [address] Zulema Mclean MD [address] [facility] [address] [place] [address] 6 month follow up documented as of this encounter Visit Diagnoses Not on filedocumented in this encounter Care Teams Consumer Experience Consultant Relationship Specialty Start Date End Date Jesus Camacho MD [address] [place] [address] PCP - General Family Medicine 05/12/23 Jesus Camacho MD Referring Family Medicine 01/14/21 Jesus Camacho MD [address] [place] [address] Referring Family Medicine 05/12/23 documented as of this encounter
--- OUTSIDE RECORDS SUMMARY | 2025-05-17 13:07 | XMS_ITS | Encounter Summary ---
Author Organization [facility] Address [facility] [place] [address] Care Team Providers Care Composite Mechanic Name Role Phone Jesus Camacho MD Unavailable [phone] Jesus Camacho MD Unavailable Jesus Camacho MD Primary Care Provider [phone] Source Comments In the event this information is protected by the Federal Confidentiality of Alcohol and Drug AbusePatient Records regulations: The Federal rules restrict any use of the information to criminally investigate or prosecute any alcohol or drug abuse patient.[facility] Encounter Details Date Type Department Care Team (Late st Contact Info) Description 12/14/2024 Get Medical Advice [facility] [address] [place] [address] Jacky Pineda MD [address] [place] [address] MRI Social History Tobacco Use [...] lower risk 8 06/01/2023 Data from: https://www.neighborhoodatlas.medicine.[facility]/. Last address used for calculation [address] [...] 06/22/2025 2:20 PM EDT Office Visit Rheumatology [address] [place] [address] Zulema Mclean MD [address] [address] [place] [address] 6 month follow up documented as of this encounter Visit Diagnoses Not on filedocumented in this encounter Care Teams Composite Mechanic Relationship Specialty Start Date End Date Jesus Camacho MD [address] [place] [address] PCP - General Family Medicine 05/12/23 Jesus Camacho MD Referring Family Medicine 01/14/21 Jesus Camacho MD [address] [place] [address] Referring Family Medicine 05/12/23 documented as of this encounter
--- OUTSIDE RECORDS SUMMARY | 2025-05-17 13:07 | XMS_ITS | Encounter Summary ---
Author Organization [facility] Address [address] [place], [place] [address] Care Team Providers Care House Worker Name Role Phone Jesus Camacho MD Unavailable [phone] Jesus Camacho MD Unavailable [phone] Jesus Camacho MD Primary Care Provider [phone] Source Comments In the event this information is protected by the Federal Confidentiality of Alcohol and Drug AbusePatient Records regulations: The Federal rules restrict any use of the information to criminally investigate or prosecute any alcohol or drug abuse patient.[facility] Reason for Referral * Consult, Test, Treat (Routine) - Closed Specialty Diagnoses / Procedures Referred By Contrahul t Referred To Contact Diagnoses Intracranial meningioma (HCC) Preop testing Procedures OFFICE/OUTPATIENT NEW HIGH MDM 60 MINUTES Jacky Pineda MD [address] [place] [address] Phone: tel: fax: Referral ID Status Reason Start Date Expiration Date V isits Requested Visits Authorized [id number] Closed PCP Requested Referral 01/13/2025 01/13/2026 1 1 * MRI/CT (Routine) - Closed Specialty Diagnoses / Procedures Referred By Tati gonzalez Referred To Contact MR IMAGING Diagnoses Intracranial meningioma (HCC) Preop testing Procedures MRI BRAIN WO/W IVCON MRI BRAIN BRAIN STEM W/O W/CONTRAST MATERIAL Jacky Pineda MD [address] [place] [address] Phone: tel: fax: MR IMAGING [place] [address] Referral ID Status Reason Start Date Expiration Date V isits Requested Visits Authorized [id number] Closed Auto-Generate d Referral 02/10/2025 09/13/2025 1 1 Encounter Details Date Type Department Care Team (Late st Contact Info) Description 01/13/2025 Cure Form [facility] [address] [place] [id number] Shakila Phillips, RN [address] [place] [address] Intracranial meningioma (HCC) (Primary Dx); Preop testing [...] risk 8 06/01/2023 Data from: https://www.neighborhoodatlas.medicine.[facility].edu/. Last address used for calculation [address] [...] 06/22/2025 2:20 PM EDT Office Visit Rheumatology [address] [place] [address] Zulema Mclean MD [address] [place] [address] 6 month follow up Scheduled Orders Name [...] exam in November 2015. No acute abnormalities. Forklift Operator: PSCB Transcribe Date/Time: Feb 14 2025 10:01A Dictated by : SEAN BLOCK MD This examination was interpreted and the report reviewed and electronically signed by: SEAN BLOCK MD on Feb 14 2025 10:22AM EST Narrative 02/14/2025 10:37 AM EDT * * *Final Report* * * DATE OF EXAM: Feb 14 2025 10:37AM [facility] 0295 - MRI BRAIN WO/W [...] tissue mass extending into the of the steel shot header operator or parapharyngeal spaces. The soft tissue planes of the, retropharyngeal, and prevertebral spaces are maintained. The visualized parotid glands are normal in appearance. Nasopharynx/Oropharynx: The nasopharynx and oropharynx are normal in appearance. Procedure Note Provider, [facility] - 02/14/2025 * * *Final Report* * * DATE OF EXAM: Feb 14 2025 10:37AM [facility] 0295 - MRI BRAIN WO/W [...] tissue mass extending into the of the steel shot header operator or parapharyngeal spaces. The soft tissue planes [...] exam in November 2015. No acute abnormalities. Forklift Operator: GUANACO Transcribe Date/Time: Feb 14 2025 10:01A [...] CEPHEID GENEXPERT COVID19 02/14/2025 10:17 PM EDT [facility] Swab POSTERIOR NARES / Unknown Non Blood / Unknown 02/14/2025 8:19 AM EDT 02/14/2025 8:20 AM EDT Jacky Pineda MD LABORATORY Final Result Performing Organization Address [facility] Co de Phone Number [facility] [address] [facility] [address] [place] [address], * TYPE AND SCREEN,30 DAY (02/14/2025 8:19 [...] BLOOD BANK Final Result Performing Organization Address City/[facility] Co de Phone Number MAIN BLOOD BANK [address] [facility] [address] [place] [address], [place] documented in this encounter Visit Diagnoses Diagnosis Intracranial meningioma (HCC)- Primary Benign neoplasm of cerebral meninges Preop testing Preoperative examination, unspecified Intracranial meningioma (HCC) Benign neoplasm of cerebral meninges Preop testing Preoperative examination, unspecified documented in this encounter Care Teams House Worker Relationship Specialty Start Date End Date Jesus Camacho MD [address] [place] [address] PCP - General Family Medicine 05/12/23 Jesus Camacho MD Referring Family Medicine 01/14/21 Jesus Camacho MD [address] [place] [address] Referring Family Medicine 05/12/23 documented as of this encounter
--- OUTSIDE RECORDS SUMMARY | 2025-05-17 13:08 | XMS_ITS | Encounter Summary ---
Author Organization [facility] Address [address] [place] [address] Care Team Providers Care Nutrition Counselor Name Role Phone Jesus Camacho MD Unavailable [phone] Jesus Camacho MD Unavailable [phone] Jesus Camacho MD Primary Care Provider [phone] Source Comments In the event this information is protected by the Federal Confidentiality of Alcohol and Drug AbusePatient Records regulations: The Federal rules restrict any use of the information to criminally investigate or prosecute any alcohol or drug abuse patient.[facility] Encounter Details Date Type Department Care Team (Late st Contact Info) Description 01/06/2023 Get Medical Advice Rheumatology [address] [place] [address] Zulema Mclean MD [address] [facility] [address] [address] [place], [place] [id number] Fibromyalgia update Social History Tobacco Use Types Packs/Day Years Used Date Smoking Tobacco: Former Smokeless Tobacco: Never PHQ-2 Answer Date Recorded PHQ-2 score 1 09/22/2022 Area Deprivation Index Answer Date Eliseo rded National Score (1-100), lower number is lower ri sk 90 09/29/2022 State Score (1-10), lower number is lower risk N ot on file 09/29/2022 Data from: https://www.neighborhoodatlas.medicine.[facility]/. Last address used for calculation [...] 06/22/2025 2:20 PM EDT Office Visit Rheumatology [address] [place] [address] Zulema Mclean MD [address] [facility] [address] [place] [address] 6 month follow up documented as of this encounter Visit Diagnoses Not on filedocumented in this encounter Care Teams Nutrition Counselor Relationship Specialty Start Date End Date Jesus Camacho MD [address] [place] [address] PCP - General Family Medicine 05/12/23 Jesus Camacho MD Referring Family Medicine 01/14/21 Jesus Camacho MD [address] [place] [address] Referring Family Medicine 05/12/23 documented as of this encounter
--- OUTSIDE RECORDS SUMMARY | 2025-05-17 13:08 | XMS_ITS | Encounter Summary ---
Author Organization [facility] Address [address] [place] [address] Care Team Providers Care Boring Mill Set Up Operator Vertical Name Role Phone Jesus Camacho MD Unavailable [phone] Jesus Camacho MD Unavailable [phone] Jesus Camacho MD Primary Care Provider [phone] Source Comments In the event this information is protected by the Federal Confidentiality of Alcohol and Drug AbusePatient Records regulations: The Federal rules restrict any use of the information to criminally investigate or prosecute any alcohol or drug abuse patient.[facility] Encounter Details Date Type Department Care Team (Late st Contact Info) Description 03/12/2023 Patient Msg Rheumatology [address] [place] [address] Provider, [facility] Rheumatology Appointment Cancellation Social History Tobacco Use Types Packs/Day Years Used Date Smoking Tobacco: Former Smokeless Tobacco: Never PHQ-2 Answer Date Recorded PHQ-2 score 1 09/22/2022 Area Deprivation Index Answer Date Eliseo rded National Score (1-100), lower number is lower ri sk 90 09/29/2022 State Score (1-10), lower number is lower risk N ot on file 09/29/2022 Data from: https://www.neighborhoodatlas.medicine.[facility].edu/. Last address used for calculation [address] [...] 06/22/2025 2:20 PM EDT Office Visit Rheumatology [address] [place] [address] Zulema Mclean MD [address] [address] [place], [place] [id number] 6 month follow up documented as of this encounter Visit Diagnoses Not on filedocumented in this encounter Care Teams Boring Mill Set Up Operator Vertical Relationship Specialty Start Date End Date Jesus Camacho MD [address] [place] [address] PCP - General Family Medicine 05/12/23 Jesus Camacho MD Referring Family Medicine 01/14/21 Jesus Camacho MD [address] [place] [address] Referring Family Medicine 05/12/23 documented as of this encounter
--- OUTSIDE RECORDS SUMMARY | 2025-05-17 17:48 | XMS_ITS | CCD ---
Author Organization [facility] Care Team Providers Care [employer]acher [employer] Name Role Phone PHYSICIAN, DEFAULT Unavailable Unavailable [...] Provider MD Sammie Gonzalez Attending Provider Hank ([facility])MARILEE Attending Provider [phone] Sammie Gonzalez MD Unavailable Sammie Gonzalez MD Primary Care Provider Sammie Gonzalez MD Unavailable Sammie Gonzalez MD Primary Care Provider Sammie Gonzalez MD Primary Care Provider MD Sammie Gonazlez Primary Care Provider MD Sammie Gonzalez Attending Provider MD Zeinab Wood Attending Provider PINEDAERIK HERNANDEZ Referring Unavailable SAMMIE GONZALEZ Primary Care Unavailable ERIK PINEDA Referring Unavailable SAMMIE GONZALEZ Primary Care Unavailable MD Sammie Gonzalez Primary Care Provider [phone] MD Sammie Gonzalez Attending Provider MD Sammie Gonzalez Primary Care Provider [phone] MD Sammie Gonzalez Attending Provider MD Sammie Gonzalez Primary Care Provider MD Sammie Gonzalez Attending Provider Sammie Gonzalez MD Primary Care Provider [phone] WANDY PHILLIPS Attending Unavailable YOLA CARABALLO Attending Unavailable ESTEVAN POLANCO Attending Unavailable Sammie Gonzalez MD Primary Care Provider [phone] Self, Referral Attending Provider Unavailable Zeinab Wood MD Attending Provider Mk Broderick MD Attending Provider Sammie Gonzalez MD Primary Care Provider Self, Referral Attending Provider Unavailable Zeinab Wood MD Attending Provider Mk Broderick MD Attending Provider Sammie Gonzalez MD Attending Provider [phone] Sammie Gonzalez MD Primary Care Provider [phone] Elyssa Gomes MD Attending Provider [phone] Sammie Gonzalez MD Primary Care Provider [phone] Hoy, Sammie M Primary Care Unavailable Hoy, Sammie M Attending Unavailable Hoy, Sammie M Admitting Unavailable Elyssa Gomes Admitting Unavailable Elyssa Gomes Attending Unavailable Hoy, Sammie M Primary Care [...] Referral Admitting Unavailable Self, Referral Attending Unavailable Zeinab Wood Admitting Unavailable Zeinab Wood Attending Unavailable Hoy, Sammie M Primary Care Unavailable Camxa, Mk Admitting Unavailable Hoy, Sammie M Primary Care Unavailable Mk Broderick Attending Unavailable Sammie Gonzalez MD Primary Care Provider [phone] Elyssa Gomes MD Attending Provider Sammie Gonzalez MD Attending Provider [phone] [facility] Attending Unavaila Sammie Sanon MD Primary Care Unavailable [facility] Unavailable Unavaila ble PINEDAERIK F Attending Unavailable HOY, SAMMIE M Primary Care Unavailable HOY, SAMMIE M Primary Care Unavailable MEHUL MARTIN Referring Unavailable PINEDA, ERIK F Referring Unavailable HOY, SAMMIE M Primary Care Unavailable ZEINAB WOOD Referring Unavailable HOY, SAMMIE M Primary Care Unavailable HOY, SAMMIE M Primary Care Unavailable PINEDA, ERIK F Admitting Unavailable PINEDA, ERIK F Attending Unavailable PINEDA, ERIK F Referring Unavailable HOY, SAMMIE M Primary Care Unavailable HOY, SAMMIE M Primary Care Unavailable RACHELE FENTON Attending Unavailable ZEINAB WOOD Attending Unavailable HOY, SAMMIE M Primary Care Unavailable ZEINAB WOOD Attending Unavailable SAMMIE GONZALEZ M Primary Care Unavailable SAMMIE GONZALEZ M Primary Care Unavailable RACHELE FENTON Attending Unavailable SAMMIE GONZALEZ M Primary Care Unavailable ERIK PINEDA Attending Unavailable SAMMIE GONZALEZ M Primary Care Unavailable SAMMIE GONZALEZ M Primary Care Unavailable SAMMIE GONZALEZ M Primary Care Unavailable HEATHER MOY Attending Unavailable Gigeorgianaitis , Ridge Garcia Attending Unavailable Gigeorgianaitis , Ridge Garcia Attending Unavailable Gigeorgianaitis , Ridge Garcia Attending Unavailable Gigeorgianaitis , Ridge Garcia Attending Unavailable Gieditis , Ridge Garcia Attending Unavailable Darrick MCGHEE, Ridge Garcia Attending Unavailable Medications Current Medications Medication Drug Class(es) Dates Sig (Normalized) Sig (Original) acetaminophen 325 mg oral tablet (15 sources) Start: 02-23-2025 take 2 tablets enteral route every four hours as needed acetaminophen (TYLENOL) 325 mg tablet 2 tablets by ORAL/FEEDING TUBE route every 4 hours as needed for pain. 02/23/2025 Active acetaminophen 300 mg / butalbital 50 mg / caffeine 40 mg oral capsule (20 sources) Barbiturate, Central Nervous System Stimulant, Methylxanthine Start: 09-17-2021 take 1 capsule by mouth every four to six hours as needed Butalbital-Acetami nophen-Caff (Fioricet) 50-300-40 mg Capsule Active 1 CAP PO EVERY 4-6 HOURS as needed for migraines September 17, 2021 1:00am Complies with drug therapy Start: 02-18-2021 End: 06-30-2023 take 1 tablet [...] four times daily as needed for headache fyuadjuhmi-txaicptxaumku-[id number] 50-325-40 MG tablet TAKE 1 TABLET BY [...] to six hours as needed for pain Hydrocodone-Acetamin ophen 5-325 mg tablet Active 1 - 2 TAB PO EVERY 4-6 HOURS as needed for pain 50 7 October 24, 2021 Complies with drug therapy albuterol 0.83 mg/ml inhalation solution (20 sources) beta2-Adrenergic Agonist Start: 0 take 2.5 mg by inhalation four times daily as needed Albuterol Sulfate 2.5 mg /3 mL (0.083 %) Solution For Nebulization Active 2.5 MG INHALATION Four times daily as needed for Shortness Of Breath September 11, 2020 1:00am Complies with drug therapy take 1 tablet by mouth every eig [...] Inhibitor, Nonsteroidal Anti-inflammatory Drug Start: 05-15-2021 take 1 tablet by mouth twice daily Aspirin 325 mg Tablet Active 325 MG PO Twice daily September 17, 2021 1:00am Complies with drug therapy benzonatate 100 mg oral capsule (20 sources) Non-narcotic Antitussive Start: 10-10-2021 take 2 capsules by mouth every four hours as needed for cough Benzonatate 100 mg Capsule Active 200 MG PO Q4H as needed for Cough October 10, 2021 1:00am Complies with drug therapy Start: 10-10-2021 take 200 mg by mouth every four hours Benzonatate Active 200 MG PO Q4H October 10, 2021 1:00am benzonatate (TAYLOR SALON PERLES ORAL) Active take 1 capsule by mo [facility] three times daily as needed Tessalon Perles 100 MG 1 capsule as needed Orally Three times a day Active benzonatate (TAYLOR SALON PERLES ORAL) Blood Glucose Monitoring Suppl (True Metrix Meter) w/Device kit (2 sources) Start: 03-10-2023 Blood Glucose Monitoring Suppl (True Metrix Meter) w/Device kit USE TO TEST BLOOD SUGAR EVERY DAY 03/10/2023 Active brexpiprazole 2 mg oral tablet (20 sources) Atypical Antipsychotic Start: 10-28-2018 End: 02-14-2025 take 1 tablet by mouth once daily Brexpiprazole (Rexulti) 2 mg tablet Active 2 MG PO Daily October 28, 2018 1:00am Complies with drug therapy Comment on above: Take 2 mg by [...] Sodium-Glucose Cotransporter 2 Inhibitor Start: End: take 1 tablet by mouth once daily Dapagliflozin Propanediol 5 mg tablet Active 5 MG PO Daily December 18, 2018 12:00am Complies with drug therapy Comment on above: Take 5 mg by mouth o nce daily. dexamethasone 2 mg oral tablet (12 sources) Corticosteroid Start: 025 End: take 4 tablets by mouth twice daily at mealtime, then take 3 tablets by mouth twice daily at mealtime, then take 2 tablets by mouth twice daily at mealtime, then take 1 tablet by mouth twice daily at mealtime, then take 1 tablet by mouth once daily at breakfast dexAMETHasone (DECADRON) 2 mg tablet Take 4 tablets by mouth two times a day with meals for 1 day, THEN 3 tablets two times a day with meals for 2 days, THEN 2 tablets two times a day with meals for 2 days, THEN 1 tablet two times a day with meals for 1 day, THEN 1 tablet daily with breakfast for 1 day. 31 tablet 02/22/2025 10:55 AM EDT 02/22/2025 03/01/2025 Active Start: 01-04-2021 End: 06-26-2023 take 1 tablet by mouth once daily dexAMETHasone (DECADRON) 6 mg tablet TAKE 1 TABLET BY MOUTH EVERY DAY FOR 6 DAYS 0 01/04/2021 06/26/2023 Discontinued Comment on above: TAKE 1 TABLET BY ADRIAN EVERY DAY FOR 6 DAYS dexlansoprazole 60 mg delayed release oral capsule (20 sources) Proton Pump Inhibitor Start: 0 End: 3 take 1 capsule by mouth twice daily DEXILANT 60 mg CpDM Take 1 capsule by mouth twice daily. 02/16/2021 Active dexlansoprazole (Dexilant) [address] capsule 1 capsule 1 (one) time each day at the same time. Active Comment on above: Take 1 capsule by [facility] twice daily. Dexlansoprazole (Dexilant) 60 mg capsule,biphase delayed releas (20 sources) Start: 10-10-19 take 1 capsule by mouth twice daily Dexlansoprazole (Dexilant) 60 mg capsule,biphase delayed releas Active 60 MG PO Twice daily October 10, 2021 12:00am Start: 10-10-2021 take 1 capsule by [facility] twice daily Dexlansoprazole (Dexilant) 60 mg capsule,biphase delayed releas Active 60 MG PO Twice daily October 10, 2021 1:00am diclofenac sodium 0.01 mg/mg topical gel (19 sources) Nonsteroidal Anti-inflammatory Drug Start: 02-01-2025 Diclofenac Sodium (Voltaren Arthritis Pain) 1 % gel Active 4 GM TOPICAL Four times daily February 01, 2025 12:00am apply to single knee, ankle, foot; for foot includes sole/toes/top of foot Complies with drug therapy Start: 02-01-2025 Diclofenac Sod ium (Voltaren Arthritis Pain) 1 % gel Active 4 GM TOPICAL Four times daily February 01, 2025 12:00am apply to single knee, ankle, foot; for foot includes sole/toes/top of foot Start: 01-27-2020 End: 06-26-2023 take 1 tablet by mouth in the morning diclofenac (Voltaren) 75 MG EC tablet Take 75 mg by mouth in the morning and 75 mg before bedtime. 08/01/2022 Active Comment on above: Take 75 mg by mouth twice daily. docusate sodium 50 mg / sennosides, residential 8.6 mg oral tablet (16 sources) Start: 02-22-2025 take 1 tablet by mouth every twelve hours as needed senna-docusate (SENNA-S) 8.6-50 mg per tablet Take 1 tablet by mouth two times a day as needed for constipation. 100 tablet 02/22/2025 10:55 AM EDT 02/22/2025 Active take 1 tablet by mouth every twe lve hours Senokot S 8.6-50 MG 1 tablet as needed Orally Twice a day Active doxepin hydrochloride 10 mg oral capsule (20 sources) Tricyclic Antidepressant Start: 10-28-2018 take 1 capsule by mouth three times daily as needed for anxiety Doxepin 10 mg capsule Active 10 MG PO Three times daily as needed for Anxiety October 28, 2018 1:00am Complies with drug therapy take 1 capsule by [facility] every twenty-four hours Doxepin HCl 10 MG 1 capsule at bedtime Orally Once a day Active doxycycline hyclate 100 mg oral tablet (20 sources) Tetracycline-class Drug Start: 10-24-2021 take 1 tablet by mouth twice daily Doxycycline Hyclate 100 mg tablet Active 100 MG PO Twice daily 10 October 24, 2021 1:00am Complies with drug therapy DULoxetine 60 mg delayed release oral capsule (20 sources) Serotonin and Norepinephrine Reuptake Inhibitor Start: 05-30-2024 End: 10-10-2024 take 1 tablet by mouth once daily DULoxetine (CYMBALTA) 30 mg capsule Indications: Fibromyalgia Take one tab along with the 60mg tab to equal 90mg po qd 30 capsule 6 10/10/2024 Active Start: 10-01-2023 End: 03-06-2025 take 1 capsule by mouth once daily DULoxetine (CYMBALTA) 60 mg capsule Indications: Fibromyalgia TAKE 1 CAPSULE BY MOUTH EVERY DAY 90 capsule 2 03/06/2025 Active Start: 11-03-2022 End: 04-13-2023 take 1 [...] on above: Take 1 capsule by mo [facility] once daily. TAKE 1 CAPSULE BY [facility] EVERY DAY etodolac 400 mg oral tablet (20 sources) Nonsteroidal Anti-inflammatory Drug Start: End: take 1 tablet by mouth every twelve hours for arthritis and arthritis etodolac (LODINE) 400 mg tablet Indications: Inflammatory arthritis TAKE 1 TABLET BY MOUTH TWICE A DAY NEEDED 60 tablet 3 02/27/2025 Active Start: 09-28-2023 End: 08-28-2024 take 1 tablet by mouth twice daily as needed etodolac (LODINE) 400 mg tablet One tab po bid prn 60 tablet 3 01/27/2024 08/28/2024 Discontinued Comment on above: One tab po bid prn 120 actuat formoterol fumarate 0.005 mg/actuat / mometasone furoate 0.2 mg/actuat metered dose inhaler (20 sources) Corticosteroid, beta2-Adrenergic Agonist Start: 09-11-2020 take 1 puff(s) by inhalation twice daily Mometasone-Formoter ol (Dulera) 200-5 mcg/actuation HFA aerosol inhaler Active 2 PUFF INHALATION Twice daily September 11, 2020 1:00am Complies with drug therapy End: 06-26-2023 mometasone-formoterol (DULER A) 100-5 mcg/actuation inhaler glycopyrrolate 1 mg oral tablet (20 sources) Start: 02-16-2021 take 2 tablets by mouth twice daily glycopyrrolate (ROBINUL) 1 mg tablet Take 2 mg by mouth twice daily. 02/16/2021 Active Start: 10-28-2018 End: 06-26-2023 take 1 tablet by mouth once daily Glycopyrrolate 1 mg tablet Active 3 MG PO Daily October 28, 2018 1:00am Complies with drug therapy Start: 10-28-2018 take 3 mg by mouth once daily Glycopyrrolate Active 3 MG PO Daily October 28, 2018 1:00am Comment on above: Take 2 mg by mouth t wice daily. hydroCHLOROthiazide 25 mg oral tablet (20 sources) Thiazide Diuretic Star t: 08-15 End: 06-14 take 1 tablet by mouth once daily Hydrochlorothiazide 25 mg tablet Active 25 MG PO Daily September 11, 2020 1:00am Complies with drug therapy Comment on above: Take 25 mg by mouth once daily. hydroxychloroquine sulfate 200 mg oral tablet (20 sources) Antimalarial, Antirheumatic Agent Star t: 06-15 End: 04-14 25 take 1 tablet by mouth twice daily hydrOXYchloroQUINE (PLAQUENIL) 200 mg tablet TAKE 1 TABLET BY MOUTH TWICE A DAY 60 tablet 2 04/26/2025 Active Comment on above: Take 1 tablet by adrian th twice daily. TAKE 1 TABLET BY ADRIAN TH TWICE DAILY Take 1 tablet by adrian th two times a day. ipratropium bromide 0.2 mg/ml inhalation solution (20 sources) Anticholinergic Star t: 08-15 take 0.5 mg by inhalation every six hours as needed Ipratropium [place] 0.02 % Solution Active 0.5 MG INHALATION Q6H as needed for Shortness Of Breath September 11, 2020 1:00am Complies with drug therapy Start: 09-11-2020 take 0.5 mg by inhal ation every six hours Ipratropium [place] Active 0.5 MG INHALATION Q6H September 11, 2020 1:00am iv contrast (will be provided with radiology test) (2 sources) Start: 03-02-2025 End: 03-03-2025 inject 1 dose intravenously once iv contrast (will be provided with radiology test) MRI Brain Inject, intravenously, once for 1 dose.No IV access, insert saline lock prior to beginning of sedation, infusion, injection of imaging exam.Discontinue saline lock post exam. If Pt. has a central line or IVAD, may access for administration according to line specific nursing protocol.Once exam is complete flush line and de-access according to line specific nursing protocol in the MR contrast administration guidelines link 1 each 03/02/2025 03/03/2025 Active Start: 01-19-2024 End: 01-20-2024 inject 1 dose intravenously once, then inject [...] tablet (20 sources) Mood Stabilizer, Anti-epileptic Agent Start: 09-12-2017 lamoTRIgine (LAMICTAL) 200 mg tablet TAKE 3 TABLETS EVERY DAY 02/16/2021 Active Start: 09-12-2017 take 600 mg by mouth once bibi y Lamotrigine Active 600 MG PO Daily September 12, 2017 1:00am take 1 tablet by [facility] every twenty-four hours lamoTRIgine 200 MG 1 tablet on the tongue and allow to dissolve Orally Once a day Active Comment on above: TAKE 3 TABLETS EVERY DAY levothyroxine sodium 0.05 mg oral tablet (20 sources) l-Thyroxine Start: 05-17-20 24 levothyroxine (Synthroid, Levoxyl) 50 MCG tablet 1 (one) time each day at the same time 05/17/2024 Active lisinopril 10 mg oral tablet (20 sources) Angiotensin Converting Enzyme Inhibitor Start: 09-11-20 take 1 tablet by mouth once daily Lisinopril 10 mg tablet Active 10 MG PO Daily September 11, 2020 1:00am Complies with drug therapy lubiprostone 0.024 mg oral capsule (20 sources) Chloride Channel Activator Start: 10-28-19 take 1 capsule by mouth twice daily AMITIZA 24 mcg capsule Take 24 mcg by mouth twice daily. 02/16/2021 Active Start: 10-28-2018 take 1 capsule by [facility] twice daily Lubiprostone (Amitiza) 24 mcg capsule Active 24 MCG PO Twice daily October 28, 2018 12:00am Start: 10-28-2018 take 1 capsule by [facility] twice daily Lubiprostone (Amitiza) 24 mcg capsule Active 24 MCG PO Twice daily October 28, 2018 1:00am take 1 capsule by [facility] twice daily at mealtime Amitiza 24 MCG 1 capsule with food and water Orally Twice a day Active Comment on above: Take 24 mcg by mouth twice daily. 1 ml medroxyPROGESTERone acetate 150 mg/ml injection (20 sources) Progestin medroxyPROGESTER one (DEPO-PROVERA) 150 mg/mL injection Inject 150 mg intramuscularly every 12 weeks. Active metFORMIN hydrochloride 500 mg oral tablet (20 sources) Biguanide Start: 2016 take 2 tablets by mouth twice daily Metformin 500 mg tablet Active 1000 MG PO Twice daily September 12, 2017 1:00am Complies with drug therapy Start: 09-12-2017 take 1000 mg by mout h twice daily Metformin Active 1000 MG PO Twice daily September 12, 2017 1:00am metFORMIN (GLUCO PHAGE) 500 mg tablet Active methocarbamol 500 mg oral tablet (20 sources) Muscle Relaxant Start: 03-13-2025 take 1 tablet by mouth twice daily as needed methocarbamol (ROBAXIN) 500 mg tablet Indications: Chronic daily headache TAKE 1 TABLET BY MOUTH TWICE A DAY NEEDED 45 tablet 2 03/13/2025 Active Start: 02-22-2025 End: 03-13-2025 take 1 tablet by mouth four times daily as needed for pain methocarbamol (ROBAXIN) 500 mg tablet Indications: Chronic daily headache Take 1 tablet by mouth four times a day as needed (muscle spasm, jaw pain). 02/22/2025 03/13/2025 Discontinued Start: 10-03-2024 End: 12-29-2024 take 1 tablet by mouth twice daily as needed methocarbamol (ROBAXIN) 500 mg tablet Indications: Chronic daily headache TAKE 1 TABLET BY MOUTH TWICE A DAY NEEDED 45 tablet 2 12/29/2024 Active Start: 05-26-2024 methocarbamol (Robaxin) 500 MG tablet [...] mirabegron 25 mg extended release oral tablet (17 sources) beta3-Adrenergic Agonist Start: take 1 tablet by mouth once daily Myrbetriq 25 MG 24 hr tablet TAKE 1 TABLET BY MOUTH EVERY DAY FOR 30 DAYS 06/23/2024 Active take 50 mg by mouth once daily m irabegron (MYRBETRIQ) 50 mg Tb24 Take 50 mg by mouth once daily. Active mupirocin 0.02 mg/mg topical ointment (6 sources) RNA Synthetase Inhibitor Antibacterial Start: 02-14-2025 End: 02-19-2025 mupirocin (BACTROBAN) 2 % ointment two times a day for 5 days. Apply 0.5 inch with cotton swab (Q-tip) to each nostril in the morning and evening for 5 days prior to and including day of surgery. 22 g 02/14/2025 02/19/2025 Active nortriptyline 10 mg oral capsule (20 sources) Tricyclic Antidepressant Start: 03-13-2025 take 1 capsule by mouth once daily at bedtime nortriptyline (PAMELOR) 10 mg capsule Indications: Chronic daily headache Take 1 capsule by mouth daily at bedtime. 30 capsule 3 03/13/2025 Active Start: 01-06-2025 End: 02-14-2025 nortriptyline (PAMELOR) 10 m g capsule Indications: Chronic daily headache TAKE 1 CAPSULE AT BEDTIME FOR 2 WEEKS, THEN 1 CAPSULE EVERY OTHER DAY FOR 1 WEEK THEN STOP 90 capsule 1 01/26/2025 02/14/2025 Discontinued (Course of therapy completed) Start: 11-25-2023 Nortriptyline 25 mg capsule Active 25 MG PO November 25, 2023 12:00am Start: 06-26-2023 End: 02-05-2024 Nortriptyline 25 mg capsule Active 25 MG PO November 25, 2023 12:00am Complies with drug therapy Comment on above: Take 1 capsule by mo uth daily at bedtime. ondansetron 4 mg oral tablet (20 sources) Serotonin-3 Receptor Antagonist Start: take 1 tablet by mouth every six hours as needed for nausea and vomiting ondansetron (Zofran) 4 MG tablet TAKE 1 TABLET BY MOUTH EVERY 6 HOURS NEEDED FOR NAUSEA AND VOMITING 03/16/2023 Active Start: 10-02-2021 take 1 tablet by adrian th every eight hours as needed ondansetron orally disintegrating (ZOFRAN ODT) 4 mg disintegrating tablet Take 4 mg by mouth every 8 hours as needed. 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 3 tablet 02/22/2025 10:55 AM EDT 02/22/2025 02/28/2025 Active Start: 10-09-2017 End: 10-28-2018 take 1 tablet by mouth four times daily as needed for pain Oxycodone 30 mg Tablet Discontinued 30 MG PO Four times daily as needed for Pain October 09, 2017 1:00am October 28, 2018 12:19pm Start: 09-12-2017 End: 10-28-2018 take 1 tablet by mouth twice daily, then take 1 tablet by mouth every twelve hours Oxycodone (Oxycontin) 40 mg tablet extended release 12hr Discontinued 40 MG PO Twice daily September 12, 2017 1:00am October 28, 2018 12:19pm pioglitazone 15 mg oral tablet (20 sources) Peroxisome Proliferator Receptor alpha Agonist, Peroxisome Proliferator Receptor gamma Agonist, Thiazolidinedione Start: 10-28-2018 take 1 tablet by mouth once daily Pioglitazone (Actos) 15 mg tablet Active 15 MG PO Daily October 28, 2018 1:00am Complies with drug therapy Start: 09-12-2017 End: 10-09-2017 Pioglitazone 15 mg tablet Di scontinued TABLET September 12, 2017 1:00am October 09, 2017 10:47pm Start: 09-12-2017 End: 10-09-2017 Pioglitazone 15 mg tablet Di scontinued September 12, 2017 1:00am October 09, 2017 10:47pm predniSONE 5 mg oral tablet (20 sources) Start: 09-09-2024 End: 02-27-2025 take 1-2 tablets by mouth once daily predniSONE (DELTASONE) 5 mg tablet Indications: Inflammatory arthritis TAKE 1 TO 2 TABLETS BY MOUTH EVERY DAY 60 tablet 3 02/27/2025 Active Start: 12-11-2022 End: 08-28-2024 take 1-2 tablets by mouth once daily predniSONE (DELTASONE) 5 mg tablet TAKE 1 TO 2 TABLETS BY MOUTH EVERY DAY 60 tablet 3 03/25/2024 08/28/2024 Discontinued Start: 11-11-2019 End: 09-11-2020 take 2 tablets by mouth once daily Prednisone 20 mg tablet Discontinued 40 MG PO Daily 10 5 November 11, 2019 1:00am September 11, 2020 7:28am Start: 11-11-2019 End: 09-11-2020 take 40 mg by mouth once daily Prednisone Discontinued 40 MG PO Daily 10 November 11, 2019 1:00am September 11, 2020 7:28am Start: 12-18-2018 End: 09-11-2020 take 1 tablet by mouth once daily at mealtime Prednisone 50 mg tablet Discontinued 50 MG PO Daily 5 December [...] bedtime. 06/19/2022 Active take 1 capsule by mo [facility] every twenty-four hours Lyrica 100 MG 1 capsule Orally Once a da y Not-Taking promethazine hydrochloride 25 mg oral tablet (2 sources) Phenothiazine Start: 02-17-2023 take 1 tablet by mouth every eight hours as needed promethazine (Phenergan) 25 MG tablet Take 25 mg by mouth every 8 (eight) hours if needed. 02/17/2023 Active raNITIdine 300 mg oral tablet (20 sources) Histamine-2 Receptor Antagonist Start: 09-12-2017 take 1 tablet by mouth once daily as needed Ranitidine Hcl 300 mg tablet Active 300 MG PO Daily as needed for Abdominal Discomfort September 12, 2017 1:00am Complies with drug therapy roflumilast 0.5 mg oral tablet (20 sources) Phosphodiesterase 4 Inhibitor Start: 09-12-2017 End: 06-26-2023 take 1 tablet by mouth once daily Roflumilast (Daliresp) 500 mcg tablet Active 500 MCG PO Daily September 12, 2017 1:00am Complies with drug therapy [facility] Daliresp 500 MCG 1 tablet Orally Once a day Active simvastatin 20 mg oral tablet (20 sources) HMG-CoA Reductase Inhibitor Start: 10-28-2018 take 1 tablet by mouth once daily simvastatin (ZOCOR) 20 mg tablet Take 20 mg by mouth once daily. 02/16/2021 Active Comment on above: Take 20 mg by mouth once daily. sulfamethoxazole 800 mg / trimethoprim 160 mg oral tablet (3 sources) Dihydrofolate Reductase Inhibitor Antibacterial, Sulfonamide Antimicrobial Start: 03-15-2025 End: 03-25-2025 take 1 tablet by mouth twice daily sulfamethoxazole- trimethoprim (BACTRIM DS) 800-160 mg per tablet Take 1 tablet by mouth two times a day for 5 days. 10 tablet 03/20/2025 03/25/2025 Active tiZANidine 4 mg oral tablet (20 sources) Central alpha-2 Adrenergic Agonist Start: 06-26-2023 End: 02-05-2024 take 1 tablet by mouth every eight hours as needed tiZANidine (ZANAFLEX) 4 mg tablet Indications: Chronic daily headache take 1 tablet by mouth every 8 hours as needed 60 tablet 3 02/02/2024 02/05/2024 Discontinued (Side Effects) Start: 04-11-2022 take 2 tablets by mo [facility] once daily at bedtime tiZANidine (Zanaflex) 4 MG tablet TAKE 2 TABLETS BY MOUTH DAILY AT BEDTIME 04/11/2022 Active Comment on above: Take 1 tablet by adrian every 8 hours as needed. topiramate 50 mg oral tablet (20 sources) Start: 10-24-2021 take 1 tablet by mouth once daily Topiramate (Topamax) 50 mg Tablet Active 50 MG PO Daily October 24, 2021 1:00am Complies with drug therapy traMADol hydrochloride 50 mg oral tablet (5 sources) Opioid Agonist Start: 07-30-2020 take 1 tablet by mouth every four to six hours as needed for pain traMADol HCl 50 MG 1 tablet as needed for pain Orally every 4-6 hours for 7 days prn Jul, Active divalproex sodium 500 mg delayed release oral tablet (2 sources) Mood Stabilizer, Anti-epileptic Agent Start: 07-18-2022 take 1 tablet by mouth in the morning divalproex (Depakote) 500 MG EC tablet Take 500 mg by mouth in the morning and 500 mg before bedtime. 07/18/2022 Active vilazodone hydrochloride 40 mg oral tablet (20 sources) Start: 09-12-2017 End: 02-14-2025 take 1 tablet by mouth once daily Vilazodone (Viibryd) 40 mg tablet Active 40 MG PO Daily September 12, 2017 1:00am Complies with drug therapy Comment on above: Take 40 mg by mouth once daily. Water Pills - (18 sources) Water Pills - as directed Orally Active Completed/Discontinued Medications Medication Drug Class(es) Dates Sig (Normalized) Sig (Original) acetaminophen 325 mg / oxyCODONE hydrochloride 5 mg oral tablet (20 sources) Opioid Agonist Start: 09-18-2021 End: 10-02-2021 take 1 tablet by mouth every four to six hours as needed for pain Oxycodone-Acetamin ophen (Percocet) 5-325 mg tablet Discontinued 1 TAB PO EVERY 4-6 HOURS as needed for pain 10 3 September 18, 2021 October 02, 2021 4:22am amylase [id number] unt / lipase 63358 unt / protease [id number] unt delayed release oral capsule (20 sources) Start: 09-12-2017 End: 10-28-2018 take [id number] capsules by mouth three times daily Xqvdqb-Wqtdkrbe-Cd ylase (Creon) 24,000-76,000 -120,000 unit capsule,delayed release(DR/EC) Discontinued 1 TAB PO Three times daily September 12, 2017 1:00am October 28, 2018 12:18pm azithromycin 500 mg oral tablet (20 sources) Macrolide Antimicrobial Start: 10-11-2017 End: 10-16-2017 take 1 tablet by mouth once daily Azithromycin 500 mg tablet Discontinued 500 MG PO Daily 5 5 October 11, 2017 1:00am October 15, 2017 1:00am October 16, 2017 1:04am canagliflozin 100 mg oral tablet (20 sources) Sodium-Glucose Cotransporter 2 Inhibitor Start: 09-12-2017 End: 12-18-2018 take 1 tablet by mouth once daily Canagliflozin 100 tablet Discontinued 100 MG PO Daily September 12, 2017 1:00am December 18, 2018 1:46pm carisoprodol 350 mg oral tablet (20 sources) Muscle Relaxant Start: 09-12-2017 End: 10-28-2018 take 1 tablet by mouth four times daily as needed for pain Carisoprodol 350 mg tablet Discontinued 350 MG PO Four times daily as needed for Pain September 12, 2017 1:00am October 28, 2018 12:18pm cephalexin 500 mg oral tablet (20 sources) Cephalosporin Antibacterial Start: 09-18-2021 End: 10-10-2021 take 1 tablet by mouth four times daily Cephalexin 500 mg tablet Discontinued 500 MG PO Four times daily September 18, 2021 1:00am October 10, 2021 12:45pm Gel-Syn (20 sources) Start: 03-08-2020 Gel-Syn Feb, 2 mL Start: 03-01-2020 Gel-Syn Feb 2 mL Start: 02-16-2020 Gel-Syn Feb 2 mL hydrOXYzine pamoate 25 mg oral capsule (20 sources) Antihistamine Start: 09-12-2017 End: 09-11-2020 take 1 capsule by mouth four times daily as needed for anxiety Hydroxyzine Pamoate 25 mg capsule Discontinued 25 MG PO Four times daily as needed for Anxiety September 12, 2017 1:00am September 11, 2020 7:26am ibuprofen 600 mg oral tablet (20 sources) Nonsteroidal Anti-inflammatory Drug Start: 09-18-2021 End: 10-10-2021 take 4 tablets by mouth every twenty-four hours for pain Ibuprofen 600 mg tablet Discontinued 600 MG PO EVERY 4-6 HOURS as needed for pain 02 04September 18, 2021 1:00am October 10, 2021 12:49pm do not exceed 4 doses in a 24 hour period Start: 05-16-2019 take 1 tablet by adrian th every six hours as needed for pain Ibuprofen 800 mg tablet Active 800 MG PO Q6H as needed for pain May 16, 2019 12:00am Complies with drug therapy take 1 tablet by adrian th four times daily ibuprofen 800 MG tablet TAKE 1 TABLET FOUR TIMES DAILY Oral for 30 Active levETIRAcetam 1000 mg oral tablet (3 sources) Start: 02-22-2025 End: 03-02-2025 take 1 tablet by mouth twice daily levETIRAcetam (KEPPRA) 1,000 mg tablet Take 1 tablet by mouth two times a day for 12 doses. 12 tablet 02/22/2025 10:55 AM EDT 02/22/2025 03/02/2025 Discontinued (Course of therapy completed) levoFLOXacin 500 mg oral tablet (10 sources) Quinolone Antimicrobial Start: 01-04-2021 End: 06-26-2023 take 1 tablet by mouth once daily levoFLOXacin (LEVAQUIN) 500 mg tablet Take 500 mg by mouth once daily. 0 01/04/2021 06/26/2023 Discontinued Comment on above: Take 500 mg by mouth once daily. lurasidone hydrochloride 120 mg oral tablet (20 sources) Atypical Antipsychotic Start: 09-12-2017 End: 10-28-2018 [...] PO Twice daily September 12, 2017 1:00am Complies with drug therapy Comment on above: Take 100 mg by mouth twice daily. pantoprazole 40 mg delayed release oral tablet (20 sources) Proton Pump Inhibitor Start: 09-12-20 End: 09-11-20 take 1 tablet by mouth twice daily Pantoprazole 40 tablet,delayed release (DR/EC) Discontinued 40 MG PO Twice daily September 12, 2017 1:00am September 11, 2020 7:28am phentermine hydrochloride 37.5 mg oral tablet (11 sources) Sympathomimetic Amine Anorectic Start: 01-26-20 End: 06-30-20 take 1 tablet by mouth once daily Phentermine HCl 37.5 mg tablet Take 37.5 mg by mouth once daily. 0 01/25/2021 06/30/2023 Discontinued (Course of therapy completed) Comment on above: Take 37.5 mg by mout h once daily. sucralfate 1000 mg oral tablet (20 sources) Aluminum Complex Start: 10-28-19 End: 02-15-20 take 1 tablet by mouth at bedtime Sucralfate (Carafate) 1 gram tablet Discontinued 1 GM PO Before meals and at bedtime 60 October 02, 2021 1:00am October 10, 2021 12:59pm Carafate 1 GM 1 tablet on an empty stomach Orally PRN Active Theraputic Injection (20 sources) Start: 08-11-2017 Theraputic Inj ection Jul, 168 U Start: 08-04-2017 Theraputic Inj [...] abdominal pain, unspecified] 11-02-2018 Episodic Anxiety disorders (20 sources) Anxiety; Translations: [Anxiety disorder, unspecified] Onset: 5 09-12-2017 Chronic Appendicitis and other appendiceal conditions (20 sources) Acute appendicitis; Translations: [Unspecified acute appendicitis] 09-17-2021 Episodic Cataract (2 sources) Nuclear senile cataract; Translations: [Age-related nuclear cataract, unspecified eye] Onset: 3 03-24-2023 Chronic Chronic obstructive pulmonary disease and bronchiectasis (20 sources) Acute exacerbation of chronic obstructive airways disease; Translations: [Chronic obstructive lung disease] Onset: 5 11-11-2019 Chronic Conditions associated with dizziness or vertigo (5 sources) Dizziness and giddiness; Translations: [Dizziness and giddiness] Onset: 5 03-29-2025 Episodic Contraceptive and procreative management (2 sources) Encounter for surveillance of injectable contraceptive; Translations: [Encounter for Depo-Provera contraception] Episodic Deficiency and other anemia (1 source) Iron deficiency anemia, unspecified; Translations: [Iron deficiency anemia, unspecified] Onset: 5 Episodic Diabetes mellitus with complications (20 sources) Secondary diabetes mellitus; Translations: [Other specified diabetes mellitus with diabetic autonomic (poly)neuropathy] Chronic Diabetes mellitus without complication (20 sources) Diabetes mellitus type 2 without retinopathy; Translations: [Type 2 diabetes mellitus without complications] Onset: 3 03-24-2023 Chronic Disorders of lipid metabolism (20 sources) Mixed hyperlipidemia; Translations: [Mixed hyperlipidemia] Onset: 4 02-13-2025 Chronic Disorders of teeth and jaw (2 sources) Infection of tooth; Translations: [Periapical abscess without sinus] 07-13-2024 Episodic E Codes: Natural/environment (20 sources) Dog bite - wound; Translations: [Bitten by dog, initial encounter] 05-16-2019 Episodic Esophageal disorders (20 sources) Gastroesophageal reflux disease; Translations: [Gastro-esophageal reflux disease without esophagitis] Onset: 5 02-14-2025 Chronic Gastritis and duodenitis (19 sources) Chronic superficial gastritis; Translations: [Chronic superficial gastritis without bleeding] Chronic Gastritis and duodenitis (20 sources) Gastritis; Translations: [Gastritis, unspecified, without bleeding] 10-02-2021 Episodic Gastrointestinal hemorrhage (20 sources) Rectal hemorrhage; Translations: [Hemorrhage of anus and rectum] 11-02-2018 Episodic Glaucoma (2 sources) Open angle with borderline findings, low risk, bilateral; Translations: [Open angle with borderline findings, low risk] Onset: 3 03-24-2023 Chronic Headache; including migraine (20 sources) Intractable chronic tension headache; Translations: [Chronic tension-type headache, intractable] Onset: 3 06-01-2023 Chronic Headache; including migraine (10 sources) Medication overuse headache; Translations: [Drug-induced headache, not elsewhere classified, not intractable] 06-26-2023 Episodic Headache; including migraine (1 source) Headache; including migraine; Translations: [Chronic daily headache] Onset: 5 Mood disorders (1 source) Mood disorders; Translations: [Depression, unspecified depression type] Onset: 5 Nausea and vomiting (20 sources) Nausea; Translations: [Nausea] Episodic Osteoarthritis (20 sources) Arthritis; Translations: [Unspecified osteoarthritis, unspecified site] Onset: 1 Resolved: 2 Chronic Other aftercare (3 sources) Patient encounter status; Translations: [Encounter for therapeutic drug level monitoring] 05-30-2024 Episodic Other aftercare (1 source) Surgical follow-up; Translations: [Encounter for follow-up examination after completed treatment for conditions other than malignant neoplasm] 03-06-2025 Episodic Other aftercare (1 source) Encounter for follow-up examination after completed treatment for conditions other than malignant neoplasm; Translations: [Postop check] Onset: 5 Episodic Other aftercare (1 source) Encounter for therapeutic drug level monitoring; Translations: [Encounter for medication monitoring] Onset: 5 Episodic Other and unspecified benign neoplasm (18 sources) Neoplasm of meninges; Translations: [Benign neoplasm of meninges, unspecified] Onset: 5 06-26-2023 Chronic Other and unspecified benign neoplasm (20 sources) Intracranial meningioma; Translations: [Benign neoplasm of cerebral meninges] Onset: 3 06-01-2023 Chronic Other and unspecified benign neoplasm (4 sources) Benign neoplasm of meninges; Translations: [Benign neoplasm of meninges, unspecified] 01-29-2024 Chronic Other and unspecified benign neoplasm (3 sources) Benign neoplasm of meninges, unspecified; Translations: [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)] Onset: 4 Chronic Other and unspecified benign neoplasm (1 source) Benign neoplasm of cerebral meninges; Translations: [Intracranial meningioma (HCC)] Onset: 3 Chronic Other bone disease and musculoskeletal deformities [...] bone disease and musculoskeletal deformities (20 sources) 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], [...] right shoulder Episodic Other connective tissue disease (20 sources) Fibromyalgia; Translations: [Fibromyalgia] Onset: 3 Episodic Other connective tissue disease (16 sources) Biceps tendinitis; Translations: [Bicipital tendinitis, unspecified shoulder] 01-26-2024 Episodic Other connective tissue disease (3 sources) Bicipital tendinitis, unspecified shoulder; Translations: [Bicipital tenosynovitis] 01-26-2024 Episodic Other connective tissue disease (7 sources) Bursitis of left shoulder; Translations: [Bursitis of left shoulder] 11-03-2024 Episodic Other connective tissue disease (5 sources) Bursitis of left shoulder; Translations: [Disorders of bursae and tendons in shoulder region, unspecified] 11-03-2024 Episodic Other connective tissue disease (1 source) Fibromyalgia; Translations: [Fibromyalgia] Onset: 5 Episodic Other diseases of kidney and ureters (1 source) Disorder of kidney and ureter, unspecified; Translations: [Disorder of kidney and ureter, unspecified] Onset: 5 Episodic Other disorders of stomach and duodenum (20 sources) Disorder of function of stomach; Translations: [...] Chronic Other nervous system disorders (1 source) Compression of brain; Translations: [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)] Onset: 5 Chronic Other nervous system disorders (20 sources) Pain in limb; Translations: [Other acute postprocedural pain] 10-24-2021 Episodic Other non-traumatic joint disorders (20 sources) Pain of right wrist; Translations: [Pain in right wrist] 03-22-2025 Episodic Other non-traumatic joint disorders (20 sources) Pain in right shoulder; Translations: [Acute pain of right shoulder] Onset: 1 Resolved: 2 Episodic Other non-traumatic joint disorders (11 sources) Pain in left shoulder; Translations: [Acute pain of left shoulder] Onset: 2 Resolved: 2 Episodic Other non-traumatic joint disorders (19 sources) Pain in right wrist; Translations: [Pain in joint, forearm] Onset: 2 Resolved: 2 Episodic Other non-traumatic joint disorders (16 sources) Pain in wrist; Translations: [Pain in right wrist] 11-24-2023 Episodic Other nutritional; endocrine; and metabolic disorders (20 sources) Body mass index 30+ - obesity; Translations: [Body mass index (BMI) 33.0-33.9, adult] Chronic Other nutritional; endocrine; and metabolic disorders (20 sources) Severe obesity; Translations: [Class 3 severe obesity due to excess calories with serious comorbidity and body mass index (BMI) of 40.0 to 44.9 in adult] Onset: 5 02-14-2025 Chronic Other nutritional; endocrine; and metabolic disorders (1 source) Body mass index (BMI) 40.0-44.9, adult; Translations: [Class 3 severe obesity due to excess calories with serious comorbidity and body mass index (BMI) of 40.0 to 44.9 in adult] Onset: 5 Chronic Residual codes; unclassified (20 sources) Obstructive sleep apnea syndrome; Translations: [Obstructive sleep apnea (adult) (pediatric)] Onset: 5 02-14-2025 Chronic Residual codes; unclassified (1 source) Obstructive sleep apnea (adult) (pediatric); Translations: [MAREK (obstructive sleep apnea)] Onset: 5 Chronic Residual codes; unclassified (7 sources) Other specified postprocedural states; Translations: [S/P craniotomy] Onset: 2 Resolved: 2 Episodic Residual codes; unclassified (2 sources) History of craniotomy; Translations: [Other specified postprocedural states] 03-06-2025 Episodic Residual codes; unclassified (1 source) Postprocedural state finding; Translations: [Other specified postprocedural states] 03-29-2025 Episodic Skin and subcutaneous tissue infections (20 sources) Cellulitis of forearm; Translations: [Cellulitis of unspecified part of limb] 10-11-2017 Episodic Sprains and strains (8 sources) Strain of muscle, fascia and tendon of other parts of biceps, right arm, initial encounter; Translations: [Strain of other muscles, fascia and tendons at shoulder and upper arm level, left arm, initial encounter] Onset: 1 Resolved: 2 Episodic Thyroid disorders (20 sources) Hypothyroidism; Translations: [Hypothyroidism, unspecified] Onset: 4 02-14-2025 Chronic Unclassified (1 source) Established Patient Onset: 5 Unclassified (1 source) Class 3 severe obesity due to excess calories with serious comorbidity and body mass index (BMI) of 40.0 to 44.9 in adult; Translations: [Class 3 severe obesity due to excess calories with serious comorbidity and body mass index (BMI) of 40.0 to 44.9 in adult] Onset: 5 Past or Other Problems Problem Classification Problem Date Documented Da te Episodic/Chronic Blindness and vision defects (4 sources) Bilateral myopia of eyes; Translations: [Myopia, bilateral] Onset: 03-24-2023 03-24-2023 Episodic Mood disorders (20 sources) Depressive disorder; Translations: [Depression] Resolved: 02-14-2025 02-14-2025 Chronic Neoplasms of unspecified nature or uncertain behavior (16 sources) Neoplasm of brain; Translations: [Neoplasm of unspecified behavior of unspecified site] Onset: 02-21-2025 Resolved: 03-29-2025 02-21-2025 Episodic Other connective tissue disease (1 source) Enthesopathy, unspecified; Translations: [Tendonitis M77.9] Onset: 06-05-2021 Resolved: 06-05-2021 Episodic Other connective tissue disease (2 sources) Radial styloid tenosynovitis [de Quervain]; Translations: [De Quervain's tenosynovitis, right M65.4] Onset: 06-05-2021 Resolved: 06-18-2021 Episodic Other connective tissue disease (1 source) Synovitis and tenosynovitis, unspecified; Translations: [Tenosynovitis M65.9] Onset: 06-05-2021 Resolved: 06-05-2021 Episodic Other gastrointestinal disorders (2 sources) Abdominal bloating; Translations: [Abdominal distension (gaseous)] Onset: 03-25-2023 03-25-2023 Episodic Other lower respiratory disease (2 sources) Rib pain; Translations: [Pleurodynia] Onset: 03-25-2023 03-25-2023 Episodic Other nervous system disorders (15 sources) Cerebral edema; Translations: [Cerebral edema] Onset: 02-21-2025 Resolved: 03-29-2025 02-21-2025 Chronic Other nervous system disorders (15 sources) Postoperative pain ; Translations: [Other acute postprocedural pain] Onset: 02-22-2025 Resolved: 03-29-2025 02-22-2025 Episodic Other screening for suspected conditions (not mental disorders or infectious disease) (1 source) Encounter for screening mammogram for malignant neoplasm of breast; Translations: [Encounter for screening mammogram for malignant neoplasm of breast] Onset: 09-16-2024 Episodic Residual codes; unclassified (15 sources) At risk of epileptic fits; Translations: [Other specified personal risk factors, not elsewhere classified] Onset: 02-21-2025 Resolved: 03-29-2025 02-21-2025 Episodic Unclassified (1 source) Patient encounter status 02-14-2025 Results Test Name Value Interpretation Reference Range Facility [facility] 03-15-2025 CNOV Office Visit (NSCAMN ) KOURTNEY NOVAK ([id number]) 1975 F Date Time Provider Department 03/15/25 12:00 PM FELLOW APPOINTMENTS [facility] During your visit today, we recorded the following information about you: Pulse Respiration Blood pressure Weight 82/minute 18/minute 156/79 111.3 kg Yuly Do MA 03/15/2025 12:44 PM Signed Additional intake questions: Has the patient had fever, nausea, vomiting, diarrhea, constipation, fatigue for > 1 week? No Does the patient have a decreased appetite? No Does patient want to see a Plastic Tubing Insulation Supervisor? No (yes to any of above refer patient to schedulers for dietitian appointment) ) Does patient have any new or increased numbness or tingling of extremities? No Is patient interested in fertility information? No Does patient need any prescription refills? No Does patient have an advanced directive in place? 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 She presents today for evaluation of the concern for drainage from the inferior aspect of the wound. Patient states that there was a scab right where the long arm of her glasses would be, the scab fell off, patient then used a cotton tip in the open area and noted yellow pus like material. Wound was thoroughly cleaned in clinic, no active drainage was noted. Discussed the home wound cleaning instructions and prescribed Bactrim for 5 days. Patient is aware to call/present to ED if new drainage from the wound or the area of concern is expanding or new fever or neurological changes. PLAN: - Send a picture in [facility] for special caret on Thursday. - Bactrim DS x 5 d and home wound care as discussed. SUBJECTIVE: Patient is unaccompanied. Patient presents today for evaluation of the concern for drainage from the inferior aspect of the wound. Patient states that there was a scab right where the long arm of her glasses would be, the scab fell off, patient then used a cotton tip in the open area and noted yellow pus like material. She called the clinic and we suggested seeing us in-person. Upon my evaluation, patient is doing well neurologically, denies any new symptoms, denies fever. The area of concern on wound was examined, no active drainage was noted. The wound was cleaned with betadine and gauze. Review of Symptoms: Infectious symptoms: Negative for fevers Neurological Changes : None Current Outpatient Medications Medication Sig methocarbamol (ROBAXIN) 500 mg tablet TAKE 1 [...] daily. metFORMIN (GLUCOPHAGE) 500 mg tablet pioglitazone (A (more content not included)... [facility] KOU[facility]OVAK ([id number]) 1975 F Date Time Provider Department 03/08/25 MARIO ALBERTO PHILLIPS [facility] During your visit today, we recorded the following information about you: Mario Alberto Phillips RN 03/08/2025 4:19 PM Signed Allergies As of Date: 03/08/2025 (No Known Allergies) Date Reviewed: 03/06/2025 Reviewed by: Britton Tamez LPN - Fully Assessed Reason for Visit: Surgical Followup [104] Prescriptions as of 03/08/2025 - DULoxetine (CYMBALTA) 60 mg capsule TAKE 1 CAPSULE BY MOUTH EVERY DAY - etodolac (LODINE) 400 mg tablet TAKE 1 TABLET BY MOUTH TWICE A DAY NEEDED - predniSONE (DELTASONE) 5 mg tablet TAKE 1 TO 2 TABLETS BY MOUTH EVERY DAY - methocarbamol (ROBAXIN) 500 mg tablet Take 1 tablet by mouth four times a day as needed (muscle spasm, jaw pain). - acetaminophen (TYLENOL) 325 mg tablet 2 tablets by ORAL/FEEDING TUBE route every 4 hours as needed for pain. - senna-docusate (SENNA-S) 8.6-50 mg per tablet Take 1 tablet by mouth two times a day as needed for constipation. - mirabegron (MYRBETRIQ) 50 mg Tb24 Take 50 mg by mouth once daily. - ondansetron orally disintegrating (ZOFRAN ODT) 4 mg disintegrating tablet Take 4 mg by mouth every 8 hours as needed. - medroxyPROGESTERone (DEPO-PROVERA) 150 mg/mL injection Inject 150 mg intramuscularly every 12 weeks. - DULoxetine (CYMBALTA) 30 mg capsule Take one tab along with the 60mg tab to equal 90mg po qd - levothyroxine (SYNTHROID) 50 mcg tablet Take 50 mcg by mouth daily before breakfast. - hydrOXYchloroQUINE (PLAQUENIL) 200 mg tablet Take 1 tablet by mouth two times a day. - benzonatate (TESSALON PERLES ORAL) - budesonide (PULMICORT) 1 mg/2 mL nebulizer [...] Take 20 mg by mouth once daily. Problem List As Of Date 03/08/2025 Noted Resolved Intracranial meningioma (HCC) [D32.0] 06/01/2023 Chronic tension-type headache, intractable [G44*06/01/2023 Anxiety [F41.9] COPD (chronic obstructive pulmonary disease) (H* Depression [F32.A] 02/14/2025 Diabetes mellitus (HCC) [E11.9] Mixed hyperlipidemia [E78.2] Fibromyalgia [M79.7] MAREK (obstructive sleep apnea) [G47.33] 02/14/2025 GERD (gastroesophageal reflux disease) [K21.9] 02/14/2025 Hypothyroidism [E03.9] 02/14/2025 Class 3 severe obesity due to excess calories w*02/14/2025 Inflammatory arthritis [M19.90] 02/14/2025 Meningioma (HCC) [D32.9] 02/20/2025 Cerebral edema (HCC) [G93.6] 02/21/2025 At risk for seizures [Z91.89] 02/21/2025 Neoplasm causing mass effect and brain compress*02/21/2025 Post-op pain [G89.18] 02/22/2025 Encounter Status:Closed by MARIO ALBERTO PHILLIPS on 03/08/25 Normal [facility] CNN[facility]SEon 03-06-2025 CNNURSE Nurse Visit (NSCAMN) KOURTNEY NOVAK ([id number]) 1975 F Date Time Provider Department 03/06/25 10:30 AM MARIO ALBERTO PHILLIPS NSCAMN During your visit today, we recorded the following information about you: Temperature Pulse Respiration Blood pressure 99.2 degrees 93/minute 18/minute 149/64 Weight 108.9 kg Britton Tamez LPN 03/06/2025 2:25 PM Signed Additional intake questions: Has the patient had fever, nausea, vomiting, diarrhea, constipation, fatigue for > 1 week? No Does the patient have a decreased appetite? No Does patient want to see a Plastic Tubing Insulation Supervisor? No (yes to any of above refer patient to schedulers for dietitian appointment) ) Does patient have any new or increased numbness or tingling of extremities? No Is patient interested in fertility information? NA Does patient need any prescription refills? No Does patient have an advanced directive in place? Yes, copies are in Epic Electronically Signed By: MARY ELLEN Camejo Suha, RN 03/06/2025 2:25 PM Signed 02/20/2025 s/p Right frontotemporal craniotomy for resection of skull base tumor Patient is seen today for postop staple removal accompanied by her son Christiano. She is doing well. Headaches are getting better . She is taking Tylenol as needed. We also discussed alternating Ibuprofen w/ Tylenol. Denied changes in vision. Karishma-orbital swelling from 03/02/25 has improved after the patient avoided sleeping flat. The surgical incision appeared to be red. Tenderness was noted proximal to the ear up to mid-incision line as well as trapped fluid/ swelling underneath the demarcus. The incision was cleaned with iodine and the demarcus were removed with no difficulty. Instructions given to - keep using the baby shampoo and rub the incision gently when showering with the hands palms instead of fingers. - apply OTC bacitracin after waking up and before sleeping - Patient's eyeglasses tip was in contact with the incision / rubbing against the skin which caused a scabbing and the skin fold to dent inward. Eyeglasses tip was wrapped with sterile gauze to prevent skin contact. - Patient was instructed to monitor the incision line for worsening of the redness / tenderness. - Reviewed postop physical restrictions to stay until seeing Dr Pineda in postop follow up. - Patient asked to return to work ( this Thursday) . 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 She also asked to resume driving and drinking alcohol. - Advised to avoid alcohol given meds interaction - Patient stated that she still takes as needed at night the Robaxin. We discussed she would not be okay to drive if she is still taking this medication. - Will discuss with Dr Pineda the patient's return to work request and reach out to her through [employer] with a reply. 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 - acetaminophen (TYLENOL) 325 mg tablet 2 tablets by ORAL/FEEDING TUBE route every 4 hours as needed for pain. - senna-docusate (SENNA-S) 8.6-50 mg per tablet Take 1 tablet by mouth two times a day as needed for constipation. - mirabegron (MYRBETRIQ) 50 mg Tb24 Take 50 mg by mouth once daily. - ondansetron orally disintegrating (ZOFRAN ODT) 4 mg disintegrating tablet Take 4 mg by mouth every 8 hours as needed. - medroxyPROGESTERone (DEPO-PROVERA) 150 mg/mL injection Inject 150 mg intramuscularly every 12 weeks. - DULoxetine (CYMBALTA) 30 mg capsule Take one tab along with the 60mg tab to equal 90mg po qd - levothyroxine (SYNTHROID) 50 mcg tablet Take 50 mcg by mouth daily before breakfast. - hydrOXYchloroQUINE (PLAQUENIL) 200 mg tablet Take 1 tablet by mouth two times a day. - benzonatate (TESSALON PERLES ORAL) - budesonide (PULMICORT) 1 mg/2 mL nebulizer [...] AMITIZA 24 mcg capsule Take 24 mcg (more content not included)... Normal [facility] Kathy 02-23-2025 KIRTI Telephone ([facility]) KOURTNEY NOVAK ([id number]) 1975 F Date Time Provider Department 02/23/25 MARIO ALBERTO PHILLIPS [facility] During your visit today, we recorded the following information about you: Kaci Maya 02/23/2025 9:48 AM Signed General Call Caller : Pt Contact Reason for Call : Pt has question regards oxycodone meds. Patient requesting return call ? Yes Mario Alberto Phillips RN 02/23/2025 11:30 AM Signed General Call Caller : Pt Contact Reason for Call : Pt has question regards oxycodone meds. Patient requesting return call ? Yes Mario Alberto Phillips RN 02/23/2025 11:30 AM Signed 02/20/2025 s/p Right frontotemporal craniotomy for resection of skull base tumor Patient was discharged home on 02/22/2025 Reviewed postop IP Adult After Visit Summary that was printed and handed to the patient on hospital discharge date. Reviewed med list and sent patient a [employer] message for alternating Ibuprofen and Tylenol for headache/pain as needed Confirmed postop appointments Patient was made aware to reach out for questions/ concerns/updates. Mario Alberto Phillips RN, Edging Machine Feeder Allergies As of Date: 02/23/2025 (No Known Allergies) Date Reviewed: 02/22/2025 Reviewed by: Clarisa Mccurdy RN - Fully Assessed Reason for Visit: Surgical Followup [104] Prescriptions as of 03/15/2025 - methocarbamol (ROBAXIN) 500 mg tablet TAKE 1 TABLET BY MOUTH TWICE A DAY NEEDED - nortriptyline (PAMELOR) 10 mg capsule Take 1 capsule by mouth daily at bedtime. - DULoxetine (CYMBALTA) 60 mg capsule TAKE 1 CAPSULE BY MOUTH EVERY DAY - etodolac (LODINE) 400 mg tablet TAKE 1 TABLET BY MOUTH TWICE A DAY NEEDED - predniSONE (DELTASONE) 5 mg tablet TAKE 1 TO 2 TABLETS BY MOUTH EVERY DAY - acetaminophen (TYLENOL) 325 mg tablet 2 tablets by ORAL/FEEDING TUBE route every 4 hours as needed for pain. - senna-docusate (SENNA-S) 8.6-50 mg per tablet Take 1 tablet by mouth two times a day as needed for constipation. - mirabegron (MYRBETRIQ) 50 mg Tb24 Take 50 mg by mouth once daily. - ondansetron orally disintegrating (ZOFRAN ODT) 4 mg disintegrating tablet Take 4 mg by mouth every 8 hours as needed. - medroxyPROGESTERone (DEPO-PROVERA) 150 mg/mL injection Inject 150 mg intramuscularly every 12 weeks. - DULoxetine (CYMBALTA) 30 mg capsule Take one tab along with the 60mg tab to equal 90mg po qd - levothyroxine (SYNTHROID) 50 mcg tablet Take 50 mcg by mouth daily before breakfast. - hydrOXYchloroQUINE (PLAQUENIL) 200 mg tablet Take 1 tablet by mouth two times a day. - benzonatate (TESSALON PERLES ORAL) - budesonide (PULMICORT) 1 mg/2 mL nebulizer [...] Take 20 mg by mouth once daily. Problem List As Of Date 02/23/2025 Noted Resolved Intracranial meningioma (HCC) [D32.0] 06/01/2023 Chronic tension-type headache, intractable [G44*06/01/2023 Anxiety [F41.9] COPD (chronic obstructive pulmonary disease) (H* Depression [F32.A] 02/14/2025 Diabetes mellitus (HCC) [E11.9] Mixed hyperlipidemia [E78.2] Fibromyalgia [M79.7] MAREK (obstructive sleep apnea) [G47.33] 02/14/2025 GERD (gastroesophageal reflux disease) [K21.9] 02/14/2025 Hypothyroidism [E03.9] 02/14/2025 Class 3 severe obesity due to excess calories w*02/14/2025 Inflammatory arthritis [M19.90] 02/14/2025 Meningioma (HCC) [D32.9] 02/20/2025 Cerebral edema (HCC) [G93.6] 02/21/2025 At risk for seizures [Z91.89] 02/21/2025 Neoplasm causing mass effect and brain compress*02/21/2025 Post-op pain [G89.18] 02/22/2025 Encounter Status:Closed by MARIO ALBERTO PHILLIPS on 02/23/25 Normal [facility] ALLIED HEALTH 02-22-2025 ALLIED HEALTH HNO ID: [id number] Author: ANNALISA ENRIQUEZ Chaplain Service: Spiritual Care Author Type: [employer] Advanced Operator Maintainer Type: Allied Health Filed: 02/22/2025 15:39 Note Text: SPIRITUALCARE Spiritual Care Visit- Brief Note Name: Kourtney Novak Date: February 22, 2025 Notes: The civil division commander deputy sheriff met with the patient's family at the bedside, introducing himself and providing information about the availability of spiritual care services. The patient expressed gratitude for the visit but declined any support for the moment. Follow-up will be provided as circumstances allow. [place] further [place] [phone]. [employer] Advanced Operator Maintainer services are available 06/04. SIGNATURE: Chaplain Hiro PATIENT NAME: Kourtney Novak DATE: February 22, 2025 TIME: 3:39 PM This is an electronically created document. IF PRINTED, PLEASE DO NOT REMOVE FROM THE CHART OR MODIFY PRINTED COPY. Normal [facility] CNDSon 02-22-2025 CNDS HNO ID: [id number] Author: ERIK PINEDA MD Service: Neurosurgery Author Type: Physician Type: Discharge Summary Filed: 03/09/2025 17:28 Note Text: NEURO SURGERY SKULL BASE DISCHARGE SUMMARY PATIENT NAME: Kourtney Novak ADMISSION DATE: 02/20/2025 DISCHARGE DATE: 02/22/2025 ATTENDING PHYSICIAN: Erik Pineda MD Code Status: Not on file Highest Readmission Risk Score: 4 The 30 day readmissions risk score is derived from an internally validated risk model which evaluates patient level characteristics, utilization history, medication orders and lab results up until the day of discharge. Patients with a score of 39 or above are considered highest risk for readmission. Specific patient level drivers will be listed at the bottom of the summary. Discharged Against Medical Advice? No Attending Physician: Erik Pineda M.D. 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 It was initially diagnosed in 2016, now with interval growth. She presents today for the above mentioned procedure. The risks, benefits and outcomes were discussed at length. Final Diagnoses: Meningioma Active Hospital Problems Diagnosis POA Meningioma (HCC) Yes Cerebral edema (HCC) Yes At risk for seizures Yes 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) Yes Hypothyroidism Yes GERD (gastroesophageal reflux disease) Yes MAREK (obstructive sleep apnea) Yes Class 3 severe obesity due to excess calories with serious comorbidity and body mass index (BMI) of 40.0 to 44.9 in adult (HCC) Yes COPD (chronic obstructive pulmonary disease) (HCC) Yes Diabetes mellitus (HCC) Yes Fibromyalgia Yes Mixed hyperlipidemia Yes Anxiety Yes Resolved Hospital Problems No resolved problems to display. Morbid Obesity Class 3 Operations During Hospitalization: 02/20/2025: 1) Right frontotemporal craniotomy for resection of skull base tumor 2) Use of neuronavigation for intradural procedure Procedures During Hospitalization: No procedures performed Hospital Course: The patient was electively admitted to the [facility]. After being optimized for surgery by the PAT teams, Kourtney Novak was identified and brought into the Operating Room by the anesthesia and nursing teams. The patient was treated with perioperative antibiotics for 24 hours postoperatively. The patient underwent a right frontotemporal craniotomy for meningioma resection with Dr. Erik Pineda done under General. The patient tolerated the procedure and was taken to PACU, and then to the hospital surgical floor when PACU criteria was made. The patient was then transferred up to [place] [id number] hospital room for postoperative management. Patient was fitted with fitted with sequential compression devices and used Heparin for DVT prophylaxis. The patient was discharged on POD # 2 in stable condition. Complete and comprehensive discharge instructions were provided to the patient as well as necessary prescriptions. The patient had no further questions and was advised to call with any questions, concerns, or problems. Patient's pain was well controlled with Oral Pain Medications. Physical Therapy was started on POD # 1. Patient progressed satisfactorily through physical therapy until discharge. Based upon the appropriate milestones the patient met during the hospital course, Physical Therapy recommended patient be discharged to Rapid Recovery- discharged home. Patient was hemodynamically stable postoperatively. Relevant labs included: Sodium (mmol/L) Date Value 02/21/2025 138 02/20/2025 137 03/04/2021 135 (L) Pending results: Pathology Results (surgical pathology) Patient had no signs/symptoms of DVT, so no ultrasound was done during hospital course. MRI of brain was performed during postoperative hospital course on POD # 1 for postoperative evaluation. No consults were made during this hospital course. Emergency Contact While in the Hospital: Extended Emergency Contact Information Primary Emergency Contact: Christiano Saini Address: [address] [place] [address] Mobile Relation: Son Secondary Emergency Contact: Laith Saini Address: [address] [place] [address] Mobile Relation: Son ALLERGIES: ALLERGIES No Known Allergies HOME MEDICATIONS: Medication List START taking these medications acetaminophen 325 mg tablet Commonly known as: TYLENOL 2 tablets by ORAL/FEEDING TUBE rou (more content not included)... Normal [facility] THERAPY NTon 02-22-2025 THERAPY NT HNO ID: [id number] Author: OLIVIA WOLFF PT Service: Physical Therapy Author Type: Physical Therapist Type: Therapy (PT/OT/Speech/Resp) Filed: 02/22/2025 13:12 Note Text: PHYSICAL THERAPY MISSED VISIT SERVICE DATE: 02/22/2025 SERVICE TIME: 1140 ROOM: [place] [address] Patient not seen due to Declined to Participate. Pt denies concerns for home going, declines stair training before d/c. No further acute PT needs, all concerns addressed. PT to sign off. SIGNATURE: Olivia Wolff PT PATIENT NAME: Kourtney Novak DATE: February 22, 2025 TIME: 1:11 PM Normal [facility] THERAPY NT HNO ID: [id number] Author: EUN HARP, OT/L Service: Occupational Therapy Author Type: Occupational Therapist Type: Therapy (PT/OT/Speech/Resp) Filed: 02/22/2025 11:37 Note Text: Occupational Therapy Evaluation Summary SERVICE DATE: 02/22/2025 SERVICE TIME: 1059 to 1122 ROOM: [place] [address] OT 6 Clicks Score: 24 DISCHARGE RECOMMENDATIONS Home Recommended Discharge Disposition Comments: with family assist for IADLs PRN Anticipated Discharge Needs: Physical Assist at Home, Equipment Physical Assist at Home for: Cleaning, Transportation Recommended Discharge Equipment: Long Handled Sponge ASSESSMENT Response to Therapy Interventions: Good Participation in Activities Pt presents with R periorbital edema, though reports improvement since this morning. Pt able to open eye and does not exhibit impaired depth perception or vision difficulties at this time as a result of the edema. Pt verbalizes/demonstrat es good understanding of post-op precautions, impact of precautions on ADLs/IADLs, available AE/DME to maximize independence and strategies for edema reduction. No further acute OT needs identified at this time, will sign off. Pt aware and in agreement with plan. PRECAUTIONS Crani CURRENT HOSPITAL COURSE 02/20/25 Right craniotomy for resection of middle fossa meningioma Relevant Past Medical History: fibromyalgia, COPD, MAREK, HLD, GERD, hypothyroidism, DM, anxiety, obesity, inflammatory arthritis HOME LIVING Patient Lives With: Family (adult son and brother) Assistance Available: Part-Time (brother is home most of the time ) Entry To Home: Stairs, With Rail Number Of Stairs Into Home: 4 Number Of Stairs To Bed/Bath: Full flight Stairs to Bed/Bath with: Unilateral Rail Tub/Shower Type: Tub shower Laundry: Pt completes Equipment Owned: (None) PRIOR FUNCTIONAL LEVEL Within Functional Limits 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 Denies falls. Lives with adult son and brother who both work and are IND in the home. Baseline Cognition: Oriented to self, Oriented to situation, Oriented to time, Oriented to place SUBJECTIVE It was worse this morning, but it's getting better now. - pt statement re R periorbital edema COGNITION Orientation Deficits: (AANDOx4) Responsiveness: Alert, Awake Cog 6 Start of Session Total Points (Max Score = 24): 24 (02/22/25) Cog 6 End of Session Total Points (Max Score = 24): 24 (02/22/25) 4AT Score: 0 (02/22/25) Delirium Positive/Negative: Negative (02/22/25) THERAPY DIAGNOSIS Reduced mobility-other, Decreased activities of daily living (ADL) TREATMENT INTERVENTIONS Evaluation, Self Senior Care Management (36481) Timed Code Treatment (minutes): 8 Skilled Treatment Time (minutes): 23 TRAINING AND EDUCATION PROVIDED Activity Adaptation/Compensato ry Strategies, Benefits of In-Hospital Mobility, Disease Specific Education, Discharge Planning, Expected Functional Level, Functional Mobility Involving ADLs, Lower Extremity Dressing, Pain Management, Precautions/Restricti ons, Role of Occupational Therapy, Standing Balance to Improve [place] with ADLs/Self-Care, Transfer - Sit to Stand, Transfer - Shower THERAPEUTIC SKILLS USED Activity Dosing, Assessment of Tolerance Including Vitals Response to Activity, Cuing Verbal, Physical Assist, Therapeutic Use of Self, Teach-Back for Education, Task Analysis Learning FUNCTIONAL STATUS Activities of Daily Living Assist Level Additional Information Feeding Independent Grooming Independent Bathing Upper Body Independent Bathing Lower Body Modified Independent, Additional Information able to demo figure 4 technique Dressing Upper Body Independent Dressing Lower Body Modified Independent, Additional Information able to demo figure 4 technique Toileting Independent Mobility Assist Level Additional Information Bed Mobility Supine To Sit: Independent Sit To Supine: Independent Sit to Stand Independent Stand to Sit Independent Bed to Chair Toilet/Commode Shower Supervision Functional Mobility Independent Functional Mobility Device: None GOALS Patient will demonstrate progress with self-care, cognitive and/or coping needs identified to allow safe discharge to home with available support and/or physical assistance. ACUTE CARE TREATMENT PLAN OT Frequency: Discontinue Therapy Services Reasons Therapy Services Discontinued: Goals met SIGNATURE: Eun Harp OT/Alex PATIENT NAME: Kourtney Novak DATE: February 22, 2025 TIME: 11:36 AM [facility] HNO ID: [id number] Author: TIM ALTAMIRANO Student Service: Spiritual Care Author Type: Student Type: Allied Health Filed: 02/21/2025 14:17 Note Text: SPIRITUALCARE Spiritual Care Visit- Brief Note Name: Kourtney Novak Date: February 21, 2025 Notes: Rounds, stopped by room. Shared spiritual care resources and introduced myself. Patient thanked for information but declined at this time. SIGNATURE: Maria Elliott PATIENT NAME: Kourtney Novak DATE: February 21, 2025 TIME: 2:17 PM This is an electronically created document. IF PRINTED, PLEASE DO NOT REMOVE FROM THE CHART OR MODIFY PRINTED COPY. Normal [facility] ALLIED [facility] HNO ID: [id number] Author: TRIPP DALLAS RT(R) Service: Radiology Author Type: Manganese Wheeler Type: Allied Health Filed: 02/21/2025 10:15 Note Text: Radiology Service Progress Note PATIENT NAME: Kourtney Novak DATE OF SERVICE: February 21, 2025 TIME: 9:22 AM PATIENT IDENTITY VERIFICATION COMPLETED USING TWO (2) IDENTIFIERS: Name and Date of confirmed by patient verbally and Name and Date of confirmed by identification band. FALL SCREENING: Has the patient had 2 falls in the last year or 1 fall with injury or currently using an Ambulatory Assistive Device (Walker, Cane, Wheelchair, Crutches, etc.)? Inpatient: Screened on floor PATIENT GENDER DATA: Assigned female at . status: : No status: NO. PATIENT RELEVANT IMPLANT DATA REVIEWED: Yes PATIENT PRESENTS WITH AN IMPLANTABLE OR ATTACHED ENTRY LEVEL PARALEGAL: No RADIOLOGY DEPARTMENT: MR; Exam(s) Completed: Head: Routine Brain. Lavender Administered: Yes PERIPHERAL IV DATA: Inpatient: see LDA documentation SIGNED BY: RT Kenneth(R) February 21, 2025 9:22 AM Normal [facility] Basic metabolic 2000 panelon 02-21-2025 Anion gap [Moles/Vol] 13 mmol/L Normal 8-15 [facility] Comment on above: Order Comment: Speci men Type: BLOOD SPECIMENOrdering Facility: [facility] Address: [address] [place] [address] Performed By: #### 2 4321-2 ####[facility] LABCLIA [id number] [place] [id number] [place] Calcium [Mass/Vol] 8.8 mg/dL Normal 8.5-10.2 [facility] Comment on above: Order Comment: Speci men Type: BLOOD SPECIMENOrdering Facility: [facility] Address: [address] [place] [address] Performed By: #### 2 4321-2 ####[facility] LABCLIA [id number] [place] [id number] [place] Chloride [Moles/Vol] 105 mmol/L Normal 98-107 [facility] Comment on above: Order Comment: Speci men Type: BLOOD SPECIMENOrdering Facility: [facility] Address: [address] [place] [address] Performed By: #### 2 4321-2 ####[facility] LABCLIA [id number] [place] [id number] [place] CO2 [Moles/Vol] 20 mmol/L Low 22-30 [facility] Comment on above: Order Comment: Speci men Type: BLOOD SPECIMENOrdering Facility: [facility] Address: [address] [place] [id number] Performed By: #### 2 4321-2 ####[facility] LABCLIA [id number] [place] [id number] [place] Creatinine [Mass/Vol] 0.75 mg/dL Normal 0.58-0.96 [facility] Comment on above: Order Comment: Speci men Type: BLOOD SPECIMENOrdering Facility: [facility] Address: [address] [place] [address] Performed By: #### 2 4321-2 ####[facility] LABIA [id number] [place] [address] [place] Creatinine and Glomerular filtration rate.predicted panel (S/P/Bld) 99 mL/min/1.73m??? Normal >=60 [facility] Comment on above: Order Comment: Speci men Type: BLOOD SPECIMENOrdering Facility: [facility] Address: [address] [place] [address] Result Comment: Heather mated Glomerular Filtration Rate (eGFR) is calculated using the 2020 CKD-EPI creatinine equation. This equation utilizes serum creatinine, sex, and age as parameters. The creatinine assay has traceable calibration to isotope dilution-mass spectrometry. Refer to KDIGO guidelines for clinical interpretation. In patients with unstable renal function, e.g. those with acute kidney injury, the eGFR may not accurately reflect actual GFR. Performed By: #### 2 4321-2 ####[facility] LABIA [id number] [place] [address] [place] Glucose [Mass/Vol] 131 mg/dL High 74-99 [facility] Comment on above: Order Comment: Harshaldamien sonja Type: BLOOD SPECIMENOrdering Facility: [facility] Address: [address] [place] [address] Result Comment: The [place] Diabetes Association (ADA) provides guidance for cutoff [...] Standards of Medical Care in Diabetes 2016, [place] Diabetes Association. Diabetes Care. 2016.39(Suppl 1). Performed By: #### 2 4321-2 ####[facility] LABCLIA [id number] [place] [id number] [place] Potassium [Moles/Vol] 4.2 mmol/L Normal 3.7-5.1 [facility] Comment on above: Order Comment: Speci men Type: BLOOD SPECIMENOrdering Facility: [facility] Address: [address] [place] [address] Performed By: #### 2 4321-2 ####[facility] LABCLIA [id number] [place] [address] [place] Sodium [Moles/Vol] 138 mmol/L Normal 136-144 [facility] Comment on above: Order Comment: Speci men Type: BLOOD SPECIMENOrdering Facility: [facility] Address: [address] [place] [address] Performed By: #### 2 4321-2 ####[facility] LABIA [id number] [place] [address] [place] Urea nitrogen [Mass/Vol] 8 mg/dL Normal 7-21 [facility] Comment on above: Order Comment: Speci men Type: BLOOD SPECIMENOrdering Facility: [facility] Address: [address] [place] [address] Performed By: #### 2 4321-2 ####[facility] LABIA [id number] [place] [id number] [place] CBC W Auto Differential pane l (Bld)on 02-21-2025 Basophils (Bld) [#/Vol] 10*3/uL Normal <0.11 [facility] Comment on above: Order Comment: Speci men Type: BLOOD SPECIMENOrdering Facility: [facility] Address: [address] [place] [address] Performed By: #### 5 7021-8 ####[facility] LABIA [id number] [place] [address] [place] Basophils/100 WBC (Bld) 0.1 % Normal [facility] Comment on above: Order Comment: Speci men Type: BLOOD SPECIMENOrdering Facility: [facility] Address: [address] [place] [address] Performed By: #### 5 7021-8 ####[facility] LABCLIA [id number] [facility] [place] [address] [place] Differential cell count method Nom (Bld) Auto Normal [facility] Comment on above: Order Comment: Speci men Type: BLOOD SPECIMENOrdering Facility: [facility] Address: [address] [place] [address] Performed By: #### 5 7021-8 ####[facility] LABCLIA [id number] [place] [address] [place] Eosinophils (Bld) [#/Vol] 10*3/uL Normal <0.46 [facility] Comment on above: Order Comment: Speci men Type: BLOOD SPECIMENOrdering Facility: [facility] Address: [address] [place] [address] Performed By: #### 5 7021-8 ####[facility] LABCLIA [id number] [address] STATES OF [facility] Eosinophils/100 WBC (Bld) 0.0 % Normal [facility] Comment on above: Order Comment: Speci men Type: BLOOD SPECIMENOrdering Facility: [facility] Address: [address] [place] [address] Performed By: #### 5 7021-8 ####[facility] LABCLIA [id number] [place] [address] [place] Erythrocyte distribution width (RBC) [Ratio] 13.2 % Normal 11.5-15.0 [facility] Comment on above: Order Comment: Speci men Type: BLOOD SPECIMENOrdering Facility: [facility] Address: [address] [place] [address] Performed By: #### 5 7021-8 ####[facility] LABIA [id number] [place] [address] [place] Hematocrit (Bld) [Volume fraction] 34.6 % Low 36.0-46.0 [facility] Comment on above: Order Comment: Speci men Type: BLOOD SPECIMENOrdering Facility: [facility] Address: [address] [place] [address] Performed By: #### 5 7021-8 ####[facility] LABIA [id number] [place] [address] [place] Hemoglobin (Bld) [Mass/Vol] 11.2 g/dL Low 11.5-15.5 [facility] Comment on above: Order Comment: Speci men Type: BLOOD SPECIMENOrdering Facility: [facility] Address: [address] [place] [address] Performed By: #### 5 7021-8 ####[facility] LABIA [id number] [place] [address] [place] Immature granulocytes (Bld) [#/Vol] 0.05 10*3/uL Normal <0.10 [facility] Comment on above: Order Comment: Speci men Type: BLOOD SPECIMENOrdering Facility: [facility] Address: [address] [place] [address] Performed By: #### 5 7021-8 ####[facility] LABIA [id number] [place] [address] [place] Immature granulocytes/100 WBC (Bld) 0.4 % Normal [facility] Comment on above: Order Comment: Speci men Type: BLOOD SPECIMENOrdering Facility: [facility] Address: [address] [place] [address] Performed By: #### 5 7021-8 ####[facility] LABIA [id number] [place] [address] [place] Lymphocytes (Bld) [#/Vol] 0.87 10*3/uL Low 1.00-4.00 [facility] Comment on above: Order Comment: Speci men Type: BLOOD SPECIMENOrdering Facility: [facility] Address: [address] [place] [address] Performed By: #### 5 7021-8 ####[facility] LABIA [id number] [place] [address] [place] Lymphocytes/100 WBC (Bld) 6.8 % Normal [facility] Comment on above: Order Comment: Speci men Type: BLOOD SPECIMENOrdering Facility: [facility] Address: [address] [place] [address] Performed By: #### 5 7021-8 ####[facility] LABIA [id number] [place] [address] [place] MCH (RBC) [Entitic mass] 29.7 pg Normal 26.0-34.0 [facility] Comment on above: Order Comment: Speci men Type: BLOOD SPECIMENOrdering Facility: [facility] Address: [address] [place] [address] Performed By: #### 5 7021-8 ####[facility] LABIA [id number] [place] [address] [place] MCHC (RBC) [Mass/Vol] 32.4 g/dL Normal 30.5-36.0 [facility] Comment on above: Order Comment: Speci men Type: BLOOD SPECIMENOrdering Facility: [facility] Address: [address] [place] [address] Performed By: #### 5 7021-8 ####[facility] LABIA [id number] [place] [address] [place] MCV (RBC) [Entitic vol] 91.8 fL Normal 80.0-100.0 [facility] Comment on above: Order Comment: Speci men Type: BLOOD SPECIMENOrdering Facility: [facility] Address: [address] [place] [address] Performed By: #### 5 7021-8 ####[facility] LABCLIA [id number] [address], [place] [address] [place] Monocytes (Bld) [#/Vol] 0.94 10*3/uL High <0.87 [facility] Comment on above: Order Comment: Speci men Type: BLOOD SPECIMENOrdering Facility: [facility] Address: [address] [place] [address] Performed By: #### 5 7021-8 ####[facility] LABCLIA [id number] [address], [place] [address] [place] Monocytes/100 WBC (Bld) 7.3 % Normal [facility] Comment on above: Order Comment: Speci men Type: BLOOD SPECIMENOrdering Facility: [facility] Address: [address] [place] [address] Performed By: #### 5 7021-8 ####[facility] LABCLIA [id number] [address], [facility] [place] Neutrophils (Bld) [#/Vol] 10.95 10*3/uL High 1.45-7.50 [facility] Comment on above: Order Comment: Speci men Type: BLOOD SPECIMENOrdering Facility: [facility] Address: [address] [place] [address] Performed By: #### 5 7021-8 ####[facility] LABCLIA [id number] [address], [facility] [place] Neutrophils/100 WBC (Bld) 85.4 % Normal [facility] Comment on above: Order Comment: Speci men Type: BLOOD SPECIMENOrdering Facility: [facility] Address: [address] [place] [address] Performed By: #### 5 7021-8 ####[facility] LABCLIA [id number] [address] [place] [address] [place] Nucleated RBC (Bld) [#/Vol] 10*3/uL Normal <0.01 [facility] Comment on above: Order Comment: Speci men Type: BLOOD SPECIMENOrdering Facility: [facility] Address: [address] [place] [address] Performed By: #### 5 7021-8 ####[facility] LABCLIA [id number] [place] [address] [place] Nucleated RBC/100 WBC (Bld) [Ratio] 0.0 /100 WBC Normal [facility] Comment on above: Order Comment: Speci men Type: BLOOD SPECIMENOrdering Facility: [facility] Address: [address] [place] [address] Performed By: #### 5 7021-8 ####[facility] LABIA [id number] [place] [address] [place] Platelet mean volume (Bld) [Entitic vol] 10.5 fL Normal 9.0-12.7 [facility] Comment on above: Order Comment: Speci men Type: BLOOD SPECIMENOrdering Facility: [facility] Address: [address] [place] [address] Performed By: #### 5 7021-8 ####[facility] LABIA [id number] [place] [address] [place] Platelets (Bld) [#/Vol] 309 10*3/uL Normal 150-400 [facility] Comment on above: Order Comment: Speci men Type: BLOOD SPECIMENOrdering Facility: [facility] Address: [address] [place] [address] Performed By: #### 5 7021-8 ####[facility] LABIA [id number] [place] [address] [place] RBC (Bld) [#/Vol] 3.77 10*6/uL Low 3.90-5.20 [facility] Comment on above: Order Comment: Speci men Type: BLOOD SPECIMENOrdering Facility: [facility] Address: [address] [place] [address] Performed By: #### 5 7021-8 ####[facility] LABCLIA [id number] [place] [address] [place] WBC (Bld) [#/Vol] 12.82 10*3/uL High 3.70-11.00 [facility] Comment on above: Order Comment: Speci men Type: BLOOD SPECIMENOrdering Facility: [facility] Address: [address] [place] [address] Performed By: #### 5 7021-8 ####[facility] LABCLIA [id number] [place] [address] [place] MRI BRAIN WO/W IVCONon 02-21 MRI BRAIN WO/W IVCON * * *Final Report* * * DATE OF EXAM: Feb 21 2025 11:17AM [facility] 0295 - MRI BRAIN WO/W IVCON / PROCEDURE REASON: Brain/APPOINTMENT COORDINATOR neoplasm, monitor * * * * Physician [...] mass. Hemorrhage: Products along the scalp and craniotomy/craniectom y defect. Mass Lesion / Mass Effect: No [...] sinuses. Clear mastoid air cells. Unremarkable orbits. IMPRESSION: Expected postoperative changes from right sphenoid wing and middle cranial fossa mass resection. No residual mass or pathologic enhancement. Hybrid Car Mechanic: GUANACO Transcribe Date/Time: Feb 21 2025 11:17A Dictated by : CHIKA RUBY MD This examination was interpreted and the report reviewed and electronically signed by: TOMAS TAMEZ MD on Feb 21 2025 11:58AM EST [id number] Normal [facility] NURSING PROGon 02-21-2025 NURSING PROG HNO ID: [id number] Author: MICHELLE BAEZ RN Service: Nursing Author Type: Registered Nurse Type: Nursing Progress Note Filed: 02/21/2025 10:08 Note Text: Radiology Service Progress Note PATIENT NAME: Kourtney Novak DATE OF SERVICE: February 21, 2025 TIME: 10:07 AM PATIENT IDENTITY VERIFICATION COMPLETED USING TWO (2) STANDARD IDENTIFIERS: Name and Date of confirmed by patient verbally and Name and Date of confirmed by identification band. PATIENT GENDER DATA: Assigned female at . status: : No status: NO. PATIENT RELEVANT IMPLANT DATA REVIEWED: Yes ALLERGIES: Reviewed and unchanged MEDICATIONS REVIEWED: YES IV SITE: Inpatient - refer to LDA documentation PERIPHERAL IV ACCESS: Inpatient see LDA documentation ANXIOLYSIS/ANESTHESIA : Ativan 1 mg IV. Ok to give per radiologist Dr Neri PATIENT DISCHARGED TO: Patient transferred to [facility]. Report called to RN. SIGNED BY: Michelle Baez RN February 21, 2025 10:07 AM Normal [facility] NURSING PROG HNO ID: [id number] Author: MICHELLE BAEZ RN Service: Nursing Author Type: Registered Nurse Type: Nursing Progress Note Filed: 02/21/2025 09:10 Note Text: Radiology Service Progress Note DATE OF SERVICE: February 21, 2025 TIME: 9:09 AM PATIENT WEIGHT: 244 LBS PATIENT IDENTITY VERIFICATION COMPLETED USING TWO (2) STANDARD IDENTIFIERS: Name and Date of confirmed by patient verbally and Name and Date of confirmed by identification band. FALL SCREENING: Has the patient had 2 falls in the last year or 1 fall with injury or currently using an Ambulatory Assistive Device (Walker, Cane, Wheelchair, Crutches, etc.)? Inpatient: Screened on floor PATIENT GENDER DATA: Assigned female at . status: : No status: NO. ALLERGIES: Reviewed and unchanged CONTRAST ALLERGY: No EXAM: MRI - CONTRAST TYPE: GROUP II IV SITE: Inpatient - refer to LDA documentation IV SITE APPEARANCE: Clean,Dry and Intact SIGNATURE: Michelle Baez RN PATIENT NAME: Kourtney Novak DATE: February 21, 2025 TIME: 9:09 AM Normal [facility] NUTRITIONon 02-21-2025 NUTRITION HNO ID: [id number] Author: ZEINAB SUMMERS RD Service: Nutrition Therapy Author Type: Registered Dietitian Type: Nutrition Filed: 02/21/2025 17:21 Note Text: NUTRITION THERAPY SCREEN NOTE SERVICE DATE: 02/21/2025 SERVICE TIME: Start Time: 1305 Care Plan: Continue current diet (carb controlled) Refer to: Bioprocess Development Engineer to Follow Discharge Recommendations: Diet Diet: carb controlled Monitor and Evaluation: Meet greater than 75% of estimated needs Intake History: Nutrition Intake Prior to Admission: Greater than 75% estimated energy needs greater than or equal to 1 month Pt denies issues with eating prior to admission Reports good appetite Current Nutrition Intake: Unable to determine Only 1 meal so far documented Diet Orders (From admission, onward) Start Ordered 02/20/25 1845 DIET CARBOHYDRATE CONTROLLED START NOW Question: Carbohydrate Control Answer: CONSISTENT CARBOHYDRATE 02/20/25 1833 Anthropometrics: Height: 165.1 cm (5' 5 ) Weight: 110.8 kg (244 lb 4.3 oz) Usual Weight: 108.9 kg (240 lb) (240 - 242#) Usual Weight Obtained From: Patient Weight change percentage over time: 0-2% loss over the past year Weight Change: Not clinically significant weight loss Lines, Drains, and Airways None MNT Billing: $ Routine Care : 1 unit Time Spent (mins): 3 SIGNATURE:Zeinab Summers RDN, LD, MS, [facility] PATIENT NAME: Kourtney Novak DATE: February 21, 2025 TIME: 5:20 PM Normal [facility] THERAPY NTon 02-21-2025 THERAPY NT HNO ID: [id number] Author: OLIVIA WOLFF, PT Service: Physical Therapy Author Type: Physical Therapist Type: Therapy (PT/OT/Speech/Resp) Filed: 02/21/2025 12:40 Note Text: Physical Therapy Evaluation Summary SERVICE DATE: 02/21/2025 SERVICE TIME: 1145 to 1208 ROOM: [place] [address] PT 6 Clicks Score: 20 DISCHARGE RECOMMENDATIONS Home Anticipated Discharge Needs: Physical Assist at Home Physical Assist at Home for: Cleaning, Laundry, Transportation Recommended Discharge Equipment: No equipment needs anticipated ASSESSMENT Response to Therapy Interventions: Good Participation in Activities, On-Track to Achieve Discharge Goals Pt cleared for PT by RN. Completing functional mobility with grossly CGA-min A. Ambulating short distances without AD. Reviewed precautions and homegoing safety information. Pt reporting initial 24 hour support from son at d/c, denies concerns for homegoing including stair training. Anticipate no skilled PT needs required at d/c. PRECAUTIONS Crani CURRENT HOSPITAL COURSE 02/20/25 Right craniotomy for resection of middle fossa meningioma Relevant Past Medical History: fibromyalgia, COPD, MAREK, HLD, GERD, hypothyroidism, DM, anxiety, obesity, inflammatory arthritis HOME LIVING Patient Lives With: Family (adult son and brother) Assistance Available: Part-Time (brother is home most of the time ) Entry To Home: Stairs, With Rail Number Of Stairs Into Home: 4 Number Of Stairs To Bed/Bath: Full flight Stairs to Bed/Bath with: Unilateral Rail Tub/Shower Type: Tub shower Laundry: Pt completes Equipment Owned: (None) PRIOR FUNCTIONAL LEVEL Within Functional Limits 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 Denies falls. Lives with adult son and brother who both work and are IND in the home. SUBJECTIVE Agreeable to PT THERAPY DIAGNOSIS Reduced mobility-other TREATMENT INTERVENTIONS Evaluation, Gait Training (67471) Timed Code Treatment (minutes): 8 Skilled Treatment Time (minutes): 23 TRAINING AND EDUCATION PROVIDED Advanced Balance Activities, Assistive Device Use, Bed Mobility, Benefits of In-Hospital Mobility, Discharge Planning, Disease Specific Education, Energy Conservation, Equipment, Exercise Program, Expected Functional Level, Falls Prevention, Gait Pattern, Reduction of Deviations, Handout Issued, Home Safety, Home Set-up/Modifications, Pain Neuroscience, Patient Exercise/Therapy Program Support Needs, Positioning, Precautions/Restricti ons, Role of Physical Therapy, Sitting Balance, Standing Balance, Transfers, Treatment Protocol, Stair Navigation THERAPEUTIC SKILLS USED Activity Dosing, Assessment of Tolerance Including Vitals Response to Activity, Cues for Sequencing/Proper Technique for Activity, Cuing Verbal, Cuing Visual, Movement Facilitation, Task Analysis Learning, Teach-Back for Education FUNCTIONAL STATUS Bed Mobility Rolling: Verbal Cues Only Supine To Sit: Minimal Assistance Sit to Supine: Stand By Assistance Scooting: Stand By Assistance Transfers Sit To Stand: Stand By Assistance Stand To Sit: Stand By Assistance Bed to Chair Gait Contact Guard Assistance Gait Device: Wheeled Walker, None General Deviations/Observatio ns: Elizabeth decreased, Wide base of support, Step length decreased Gait Distance (feet): 25 ft x2, 1 trial without AD Stairs GOALS Patient will demonstrate understanding of importance of mobility during hospital stay and resolve all functional needs identified. Rehab Potential: Excellent Excellent Rehab Potential Due To: Current objective clinical presentation, Good overall health status, Good support system/ coping skills, Good motivation ACUTE CARE TREATMENT PLAN PT Frequency: One Additional Visit Treatment Interventions: Education, Self Care / Home Management, Energy Conservation Training, Joint Mobility, Strengthening, Functional Mobility Training, Balance Training, Neuromuscular Re-education Plan for Next Visit: Continue per POC SIGNATURE: Olviia Wolff, PT PATIENT NAME: Kourtney Novak DATE: February 21, 2025 TIME: 12:40 PM Normal [facility] ANES POSTPROC EVALon 025 ANES POSTPROC EVAL HNO ID: [id number] Author: PAULINO RAMACHANDRAN DO Service: ? Author Type: Anesthesiologist Type: Anesthesia Postprocedure Evaluation Filed: 02/20/2025 18:52 Note Text: POST ANESTHESIA EVALUATION NOTE : 1975 Procedure Summary Date: 02/20/25 Room / Location: [address] [facility] Anesthesia Start: 1221 Anesthesia Stop: 1641 Procedures: ORBITOCRANIAL TO ANT CRAN FOSSA W/ SUPRAORB RIDGE OSTEOTOMY AND ELEV FRONTANDTEMP LOBE (Right: Brain) RESECTION LESION BASE OF ANTERIOR CRANIAL FOSSA INTRADURAL W/ DURAL REPAIR (Right: Brain) Diagnosis: Intracranial meningioma (HCC) Preop testing (Intracranial meningioma (HCC) [D32.0]) (Preop testing [Z01.818]) Surgeons: Erik Pineda MD Responsible Provider: Paulino Ramachandran DO Anesthesia Type: general ASA Status: 3 Anesthesia Type: general Airway Type: ETT Last Vitals Vitals Value Taken Time BP 139/72 02/20/25 1800 Temp 36.2 ?C (97.2 ?F) 02/20/25 1800 Pulse 101 02/20/25 1810 Resp 27 02/20/25 1810 SpO2 96 % 02/20/25 1810 Vitals shown include unfiled device data. Post Anesthesia Patient Status Patient Evaluation: bedside. Anticipated Disposition: inpatient floor planned admission. Neurological Status: sleepy but arousable. Pulmonary Status: breathing comfortably on supplemental oxygen Airway Control: returned to baseline unsupported. Cardiovascular Status: stable. Pain Management: clinically adequate Postoperative Hydration: acceptable. Intraoperative Events: no significant anesthesia events Post Operative Nausea/Vomiting Status: no significant post operative nausea or vomiting Recommendation: continue current plan of care. Anesthesia Observations No Documentation SIGNATURE: Paulino Ramachandran DO PATIENT NAME: Kourtney Novak DATE: February 20, 2025 TIME: 6:17 PM CSN: [id number] Normal [facility] ANES PRE-OPon 02-20-2025 ANES PRE-OP HNO ID: [id number] Author: PAULINO RAMACHANDRAN DO Service: ? Author Type: Anesthesiologist Type: Anesthesia Preprocedure Evaluation Filed: 02/20/2025 12:11 Note Text: ANESTHESIOLOGY DAY OF SURGERY NOTE : 1975 Procedure Information Date/Time: 02/20/25 1245 Procedures: ORBITOCRANIAL TO ANT CRAN FOSSA W/ SUPRAORB RIDGE OSTEOTOMY AND ELEV FRONTANDTEMP LOBE (Right: Brain) RESECTION LESION BASE OF ANTERIOR CRANIAL FOSSA INTRADURAL W/ DURAL REPAIR (Right: Brain) Location: MAIN OR[facility] / [facility] Surgeons: Erik Pineda MD Estimated body mass index is 40.98 kg/m? as calculated from the following: Height as of 02/14/25: 163.8 cm (5' 4.5 ). Weight as of 02/14/25: 110 kg (242 lb 8.1 oz). Most recent hematocrit and potassium results: Hematocrit 39.2 02/14/2025 Potassium 4.1 03/04/2021 Relevant Problems ANESTHESIA (+) MAREK (obstructive sleep apnea) ENDO (+) Hypothyroidism GI (+) GERD (gastroesophageal reflux disease) NEURO-PSYCH (+) Chronic tension-type headache, intractable PULMONARY (+) COPD (chronic obstructive pulmonary disease) (HCC) (+) MAREK (obstructive sleep apnea) Other (+) Inflammatory arthritis I - PHYSICAL EVALUATION AIRWAY Patient intubated: No. Tracheostomy tube not present Mallampati: I. TM distance: >3 FB. Neck ROM: full ROM without neurological symptoms. Mouth opening: adequate. Short neck: no. Thick neck: yes DENTAL Dental findings: missing tooth/teeth. Additional exam findings: no II - ANESTHESIA PLAN ASA Score: 3 Anesthetic Plan: general Airway type: ETT The patient is not a current smoker. NPO Status: adequate Beta Meka Monitoring Plan Monitoring plan: standard ASA. Post Procedure Analgesic Plan Postoperative analgesic plan: multimodal analgesia. Informed Consent Anesthetic risks, benefits, alternatives, personnel and consent discussed: yes. Patient / Responsible Democrat agrees to proceed: yes Patient / Surrogate agrees to blood products: Yes Significant changes in the patient condition since the History and Physical, not otherwise documented in primary service progress note: no. Potential Anesthesia issues that may suggest increased risk of complications or contraindication to planned procedure: none. Vitals Value Taken Time BP 146/69 02/20/25 1130 Pulse 90 02/20/25 1130 Resp 18 02/20/25 1130 Temp 36.3 ?C (97.3 ?F) 02/20/25 1130 SpO2 98 % 02/20/25 1130 Facility-Administered Medications as of 02/20/2025 Medication Dose Route Frequency - lidocaine (PF) 10 mg/mL (1 %) 1-2 mg injection (XYLOCAINE) 0.1-0.2 mL INTRADERMAL PRN Or - lidocaine 1% 0.25 mL subcutaneous j-tip syringe (XYLOCAINE) 0.25 mL SUBCUTANEOUS PRN - lactated ringers iv infusion 5-30 mL/hr INTRAVENOUS CONTINUOUS - NaCl 0.9% iv flush bag 20 mL INTRAVENOUS PRN - ceFAZolin 2 g in dextrose (iso-osmotic) 50 mL (ANCEF,KEFZOL) 2 g INTRAVENOUS Pre-Op Once Outpatient Medications as of 02/20/2025 Medication Sig - methocarbamol (ROBAXIN) 500 mg tablet TAKE 1 TABLET BY MOUTH TWICE A DAY NEEDED - DULoxetine (CYMBALTA) 60 mg capsule Take 1 capsule by mouth once daily. - DULoxetine (CYMBALTA) 30 mg capsule Take one tab along with the 60mg tab to equal 90mg po qd - levothyroxine (SYNTHROID) 50 mcg tablet Take 50 mcg by mouth daily before breakfast. - hydrOXYchloroQUINE (PLAQUENIL) 200 mg tablet Take 1 tablet by mouth two times a day. - budesonide (PULMICORT) 1 mg/2 mL nebulizer solution INHALE 1 (ONE) vial via NEBULIZER ONCE DAILY - dapagliflozin (FARXIGA) 5 mg tablet - glycopyrrolate (ROBINUL) 1 mg tablet Take [...] 20 mg by mouth once daily. - ondansetron orally disintegrating (ZOFRAN ODT) 4 mg disintegrating tablet Take 4 mg by mouth every 8 hours as needed. - etodolac (LODINE) 400 mg tablet One tab po bid prn - predniSONE (DELTASONE) 5 mg tablet TAKE 1 TO 2 TABLETS BY MOUTH EVERY DAY - benzonatate (TESSALON PERLES ORAL) - DEXILANT 60 mg CpDM Take 1 capsule by mouth twice daily. - doxepin capsule 10 mg I have interviewed and examined the patient. I have reviewed the medical record and/or the pre-anesthesia evaluation, pertinent labs, and test results. This contains updated information obtained within 48 hours of Surgery/Procedure. SIGNATURE: Paulino Ramachandran DO PATIENT NAME: Kourtney Novak DATE: February 20, 2025 TIME: 12:10 PM CSN: [id number] Normal [facility] ARTERIAL BLOOD GASES WITH IO NIZED MAGNESIUMon 02-20-2025 Base deficit (BldA) [Moles/Vol] -4 mmol/L Low -2-0 [facility] Comment on above: Order Comment: Speci men Type: ARTERIAL BLOOD SPECIMENOrdering Facility: [facility] Address: [address] [place] [address] Performed By: #### A LLMG ####[facility] [id number] [place] [address] [place] Calcium.ionized (Bld) [Mass/Vol] 1.11 mmol/L Normal 1.08-1.30 [facility] Comment on above: Order Comment: Speci men Type: ARTERIAL BLOOD SPECIMENOrdering Facility: [facility] Address: [address] [place] [address] Performed By: #### A LLMG ####[facility] [id number] [place] [address] [place] Calcium.ionized adjusted to pH 7.4 (BldA) [Moles/Vol] 1.12 mmol/L Normal 1.08-1.30 [facility] Comment on above: Order Comment: Speci men Type: ARTERIAL BLOOD SPECIMENOrdering Facility: [facility] Address: [address] [place] [address] Performed By: #### A LLMG ####[facility] [id number] [place] [address] [place] Carboxyhemoglobin (BldA) [Mass fraction] 0.6 % Normal 0.0-2.0 [facility] Comment on above: Order Comment: Speci men Type: ARTERIAL BLOOD SPECIMENOrdering Facility: [facility] Address: [address] [place] [address] Result Comment: Carb oxyhemoglobin Reference Range for Smokers: 2.0-8.0% Performed By: #### A LLMG ####[facility] [id number] [place] [address] [place] CO2 (Bld) [Partial pressure] 33 mm Hg Low 36-46 [facility] Comment on above: Order Comment: Speci men Type: ARTERIAL BLOOD SPECIMENOrdering Facility: [facility] Address: [address] [place] [address] Performed By: #### A LLMG ####[facility] LABCLIA [id number] [place] [address] [place] CO2 adjusted to patient's actual temperature (Bld) [Partial pressure] 33 mmHg Low 36-46 [facility] Comment on above: Order Comment: Speci men Type: ARTERIAL BLOOD SPECIMENOrdering Facility: [facility] Address: [address] [place] [address] Performed By: #### A LLMG ####[facility] LABCL[facility] [id number] [place] [address] [place] Glucose [Mass/Vol] 113 mg/dL High 60-105 [facility] Comment on above: Order Comment: Speci men Type: ARTERIAL BLOOD SPECIMENOrdering Facility: [facility] Address: [address] [place] [address] Performed By: #### A LLMG ####[facility] LABCL[facility] [id number] [place] [address] [place] HCO3 (Bld) [Moles/Vol] 20 mmol/L Low 22-26 [facility] Comment on above: Order Comment: Speci men Type: ARTERIAL BLOOD SPECIMENOrdering Facility: [facility] Address: [address] [place] [address] Performed By: #### A LLMG ####[facility] LABCLIA [id number] [place] [address] [place] Hematocrit (Bld) [Volume fraction] 32.7 % Low 36.0-46.0 [facility] Comment on above: Order Comment: Speci men Type: ARTERIAL BLOOD SPECIMENOrdering Facility: [facility] Address: [address] [place] [address] Performed By: #### A LLMG ####[facility] LABCLIA [id number] [place] [address] [place] Hemoglobin (Bld) [Mass/Vol] 10.6 g/dL Low 11.5-15.5 [facility] Comment on above: Order Comment: Speci men Type: ARTERIAL BLOOD SPECIMENOrdering Facility: [facility] Address: [address] [place] [address] Performed By: #### A LLMG ####[facility] LABIA [id number] [place] [address] [place] Lactate [Moles/Vol] 1.0 mmol/L Normal 0.5-2.2 [facility] Comment on above: Order Comment: Speci men Type: ARTERIAL BLOOD SPECIMENOrdering Facility: [facility] Address: [address] [place] [address] Performed By: #### A LLMG ####[facility] LABIA [id number] [place] [address] [place] Magnesium [Moles/Vol] 0.42 mmol/L Low 0.45-0.60 [facility] Comment on above: Order Comment: Speci men Type: ARTERIAL BLOOD SPECIMENOrdering Facility: [facility] Address: [address] [place] [address] Performed By: #### A LLMG ####[facility] LABIA [id number] [place] [address] [place] Methemoglobin (Bld) [Mass fraction] 2.1 % High 0.0-1.5 [facility] Comment on above: Order Comment: Speci men Type: ARTERIAL BLOOD SPECIMENOrdering Facility: [facility] Address: [address] [place] [address] Performed By: #### A LLMG ####[facility] LABIA [id number] [place] [address] [place] Oxygen (Bld) [Partial pressure] 208 mm Hg High 85-95 [facility] Comment on above: Order Comment: Speci men Type: ARTERIAL BLOOD SPECIMENOrdering Facility: [facility] Address: [address] [place] [address] Performed By: #### A LLMG ####[facility] LABCLIA [id number] [place] [address] [place] Oxygen adjusted to patient's actual temperature (Bld) [Partial pressure] 208 mmHg High 85-95 [facility] Comment on above: Order Comment: Speci men Type: ARTERIAL BLOOD SPECIMENOrdering Facility: [facility] Address: [address] [place] [address] Performed By: #### A LLMG ####[facility] LABCLIA [id number] [place] [id number] [place] Oxyhemoglobin (BldA) [Mass fraction] 96 % Normal 95-98 [facility] Comment on above: Order Comment: Speci men Type: ARTERIAL BLOOD SPECIMENOrdering Facility: [facility] Address: [address] [place] [address] Performed By: #### A LLMG ####[facility] LABIA [id number] [place] [address] [place] pH (Bld) 7.41 [pH] Normal 7.35-7.45 [facility] Comment on above: Order Comment: Speci men Type: ARTERIAL BLOOD SPECIMENOrdering Facility: [facility] Address: [address] [place] [address] Performed By: #### A LLMG ####[facility] LABCLIA [id number] [place] [id number] [place] pH adjusted to patient's actual temperature (Bld) 7.41 Normal 7.35-7.45 [facility] Comment on above: Order Comment: Speci men Type: ARTERIAL BLOOD SPECIMENOrdering Facility: [facility] Address: [address] [place] [address] Performed By: #### A LLMG ####[facility] LABCLIA [id number] [place] [id number] [place] Potassium [Moles/Vol] 4.2 mmol/L Normal 3.5-5.0 [facility] Comment on above: Order Comment: Speci men Type: ARTERIAL BLOOD SPECIMENOrdering Facility: [facility] Address: [address] [place] [address] Performed By: #### A LLMG ####[facility] LABIA [id number] [place] [address] [place] Sodium [Moles/Vol] 137 mmol/L Normal 136-144 [facility] Comment on above: Order Comment: Speci men Type: ARTERIAL BLOOD SPECIMENOrdering Facility: [facility] Address: [address] [place] [address] Performed By: #### A LLMG ####[facility] LABIA [id number] [place] [address] [place] Base deficit (BldA) [Moles/Vol] -3 mmol/L Low -2-0 [facility] Comment on above: Order Comment: Speci men Type: ARTERIAL BLOOD SPECIMENOrdering Facility: [facility] Address: [address] [place] [address] Performed By: #### A LLMG ####[facility] LABIA [id number] [place] [address] [place] Calcium.ionized (Bld) [Mass/Vol] 1.20 mmol/L Normal 1.08-1.30 [facility] Comment on above: Order Comment: Speci men Type: ARTERIAL BLOOD SPECIMENOrdering Facility: [facility] Address: [address] [place] [address] Performed By: #### A LLMG ####[facility] LABIA [id number] [place] [address] [place] Calcium.ionized adjusted to pH 7.4 (BldA) [Moles/Vol] 1.19 mmol/L Normal 1.08-1.30 [facility] Comment on above: Order Comment: Speci men Type: ARTERIAL BLOOD SPECIMENOrdering Facility: [facility] Address: [address] [place] [address] Performed By: #### A LLMG ####[facility] LABCL[facility] [id number] [place] [address] [place] Carboxyhemoglobin (BldA) [Mass fraction] 1.0 % Normal 0.0-2.0 [facility] Comment on above: Order Comment: Speci men Type: ARTERIAL BLOOD SPECIMENOrdering Facility: [facility] Address: [address] [place] [address] Result Comment: Carb oxyhemoglobin Reference Range for Smokers: 2.0-8.0% Performed By: #### A LLMG ####[facility] LABCLIA [id number] [place] [address] [place] CO2 (Bld) [Partial pressure] 37 mm Hg Normal 36-46 [facility] Comment on above: Order Comment: Speci men Type: ARTERIAL BLOOD SPECIMENOrdering Facility: [facility] Address: [address] [place] [address] Performed By: #### A LLMG ####[facility] LABCLIA [id number] [place] [address] [place] CO2 adjusted to patient's actual temperature (Bld) [Partial pressure] 37 mmHg Normal 36-46 [facility] Comment on above: Order Comment: Speci men Type: ARTERIAL BLOOD SPECIMENOrdering Facility: [facility] Address: [address] [place] [address] Performed By: #### A LLMG ####[facility] LABCLIA [id number] [place] [address] [place] Glucose [Mass/Vol] 114 mg/dL High 60-105 [facility] Comment on above: Order Comment: Speci men Type: ARTERIAL BLOOD SPECIMENOrdering Facility: [facility] Address: [address] [place] [address] Performed By: #### A LLMG ####[facility] LABCLIA [id number] [place] [id number] [place] HCO3 (Bld) [Moles/Vol] 21 mmol/L Low 22-26 [facility] Comment on above: Order Comment: Speci men Type: ARTERIAL BLOOD SPECIMENOrdering Facility: [facility] Address: [address] [place] [address] Performed By: #### A LLMG ####[facility] LABCLIA [id number] [place] [address] [place] Hematocrit (Bld) [Volume fraction] 35.4 % Low 36.0-46.0 [facility] Comment on above: Order Comment: Speci men Type: ARTERIAL BLOOD SPECIMENOrdering Facility: [facility] Address: [address] [place] [address] Performed By: #### A LLMG ####[facility] LABIA [id number] [place] [address] [place] Hemoglobin (Bld) [Mass/Vol] 11.5 g/dL Normal 11.5-15.5 [facility] Comment on above: Order Comment: Speci men Type: ARTERIAL BLOOD SPECIMENOrdering Facility: [facility] Address: [address] [place] [address] Performed By: #### A LLMG ####[facility] LABIA [id number] [place] [address] [place] Lactate [Moles/Vol] 0.9 mmol/L Normal 0.5-2.2 [facility] Comment on above: Order Comment: Speci men Type: ARTERIAL BLOOD SPECIMENOrdering Facility: [facility] Address: [address] [place] [address] Performed By: #### A LLMG ####[facility] LABCLIA [id number] [place] [address] [place] Magnesium [Moles/Vol] 0.72 mmol/L High 0.45-0.60 [facility] Comment on above: Order Comment: Speci men Type: ARTERIAL BLOOD SPECIMENOrdering Facility: [facility] Address: [address] [place] [address] Performed By: #### A LLMG ####[facility] LABCLIA [id number] [address] [address] [place] Methemoglobin (Bld) [Mass fraction] 1.6 % High 0.0-1.5 [facility] Comment on above: Order Comment: Speci men Type: ARTERIAL BLOOD SPECIMENOrdering Facility: [facility] Address: [address] [place] [address] Performed By: #### A LLMG ####[facility] LABCLIA [id number] [place] [id number] [place] Oxygen (Bld) [Partial pressure] 299 mm Hg High 85-95 [facility] Comment on above: Order Comment: Speci men Type: ARTERIAL BLOOD SPECIMENOrdering Facility: [facility] Address: [address] [place] [address] Performed By: #### A LLMG ####[facility] LABCLIA [id number] [place] [id number] [place] Oxygen adjusted to patient's actual temperature (Bld) [Partial pressure] 299 mmHg High 85-95 [facility] Comment on above: Order Comment: Speci men Type: ARTERIAL BLOOD SPECIMENOrdering Facility: [facility] Address: [address] [place] [id number] Performed By: #### A LLMG ####[facility] LABIA [id number] [place] [id number] [place] Oxyhemoglobin (BldA) [Mass fraction] 97 % Normal 95-98 [facility] Comment on above: Order Comment: Speci men Type: ARTERIAL BLOOD SPECIMENOrdering Facility: [facility] Address: [address] [place] [id number] Performed By: #### A LLMG ####[facility] LABCLIA [id number] [place] [id number] [place] pH (Bld) 7.38 [pH] Normal 7.35-7.45 [facility] Comment on above: Order Comment: Speci men Type: ARTERIAL BLOOD SPECIMENOrdering Facility: [facility] Address: [address] [place] [address] Performed By: #### A LLMG ####[facility] LABCLIA [id number] [place] [address] [place] pH adjusted to patient's actual temperature (Bld) 7.38 Normal 7.35-7.45 [facility] Comment on above: Order Comment: Speci men Type: ARTERIAL BLOOD SPECIMENOrdering Facility: [facility] Address: [address] [place] [address] Performed By: #### A LLMG ####[facility] LABIA [id number] [place] [id number] [place] Potassium [Moles/Vol] 4.2 mmol/L Normal 3.5-5.0 [facility] Comment on above: Order Comment: Speci men Type: ARTERIAL BLOOD SPECIMENOrdering Facility: [facility] Address: [address] [place] [address] Performed By: #### A LLMG ####[facility] LABIA [id number] [place] [id number] [place] Sodium [Moles/Vol] 139 mmol/L Normal 136-144 [facility] Comment on above: Order Comment: Speci men Type: ARTERIAL BLOOD SPECIMENOrdering Facility: [facility] Address: [address] [place] [address] Performed By: #### A LLMG ####[facility] LABCLIA [id number] [place] [id number] [place] Basic metabolic 2000 panelon 02-20-2025 Anion gap [Moles/Vol] 12 mmol/L Normal 8-15 [facility] Comment on above: Order Comment: Speci men Type: BLOOD SPECIMENOrdering Facility: [facility] Address: [address] [place] [address] Performed By: #### 2 4321-2 ####[facility] LABCLIA [id number] [facility] [address] [address] [place] Calcium [Mass/Vol] 9.4 mg/dL Normal 8.5-10.2 [facility] Comment on above: Order Comment: Speci men Type: BLOOD SPECIMENOrdering Facility: [facility] Address: [address] [place] [address] Performed By: #### 2 4321-2 ####[facility]CL[facility] [id number] [facility] [address] [address] [place] Chloride [Moles/Vol] 105 mmol/L Normal 98-107 [facility] Comment on above: Order Comment: Speci men Type: BLOOD SPECIMENOrdering Facility: [facility] Address: [address] [place] [address] Performed By: #### 2 4321-2 ####[facility] LABCLIA [id number] [place] [id number] [place] CO2 [Moles/Vol] 20 mmol/L Low 22-30 [facility] Comment on above: Order Comment: Speci men Type: BLOOD SPECIMENOrdering Facility: [facility] Address: [address] [place] [address] Performed By: #### 2 4321-2 ####[facility] LABCLIA [id number] [place] [id number] [place] Creatinine [Mass/Vol] 0.90 mg/dL Normal 0.58-0.96 [facility] Comment on above: Order Comment: Speci men Type: BLOOD SPECIMENOrdering Facility: [facility] Address: [address] [place] [address] Performed By: #### 2 4321-2 ####[facility] LABCLIA [id number] [place] [address] [place] Creatinine and Glomerular filtration rate.predicted panel (S/P/Bld) 80 mL/min/1.73m??? Normal >=60 [facility] Comment on above: Order Comment: Adelaida casillas Type: BLOOD SPECIMENOrdering Facility: [facility] Address: [address] [place] [address] Result Comment: Heather mated Glomerular Filtration Rate (eGFR) is calculated using the 2020 CKD-EPI creatinine equation. This equation utilizes serum creatinine, sex, and age as parameters. The creatinine assay has traceable calibration to isotope dilution-mass spectrometry. Refer to KDIGO guidelines for clinical interpretation. In patients with unstable renal function, e.g. those with acute kidney injury, the eGFR may not accurately reflect actual GFR. Performed By: #### 2 4321-2 ####[facility] LABIA [id number] [place] [address] [place] Glucose [Mass/Vol] 94 mg/dL Normal 74-99 [facility] Comment on above: Order Comment: Adelaida casillas Type: BLOOD SPECIMENOrdering Facility: [facility] Address: [address] [place] [address] Result Comment: The [place] Diabetes Association (ADA) provides guidance for cutoff [...] Standards of Medical Care in Diabetes 2016, [place] Diabetes Association. Diabetes Care. 2016.39(Suppl 1). Performed By: #### 2 4321-2 ####[facility] LABCLIA [id number] [place] [id number] [place] Potassium [Moles/Vol] 4.1 mmol/L Normal 3.7-5.1 [facility] Comment on above: Order Comment: Speci men Type: BLOOD SPECIMENOrdering Facility: [facility] Address: [address] [place] [address] Performed By: #### 2 4321-2 ####[facility] LABCLIA [id number] [place] [address] [place] Sodium [Moles/Vol] 137 mmol/L Normal 136-144 [facility] Comment on above: Order Comment: Speci men Type: BLOOD SPECIMENOrdering Facility: [facility] Address: [address] [place] [address] Performed By: #### 2 4321-2 ####[facility] LABCLIA [id number] [place] [address] [place] Urea nitrogen [Mass/Vol] 11 mg/dL Normal 7-21 [facility] Comment on above: Order Comment: Speci men Type: BLOOD SPECIMENOrdering Facility: [facility] Address: [address] [place] [address] Performed By: #### 2 4321-2 ####[facility] LABCLIA [id number] [place] [id number] [place] OPERATIVE NOon 02-20-2025 OPERATIVE NO HNO ID: [id number] Author: ERIK PINEDA MD Service: Neurosurgery Author Type: Physician Type: Operative Report Filed: 02/21/2025 09:26 Note Text: OPERATIVE/PROCEDURE REPORT LOG ID: [id number] SURGERY/PROCEDURE DATE: 02/20/2025 INCISION/PROCEDURE START TIME: 1:29 PM INCISION CLOSE/PROCEDURE END TIME: 4:07 PM SURGEON(S)/PROCEDURAL IST(S) AND SOLE LEVELER(S): Surgeons and Role: * Erik Pineda MD - Primary * Twyla Cooley MD - Resident - Assisting * Izabela Patton MD - Fellow No Additional Staff SURGERY/PROCEDURE(S): 1) Right frontotemporal craniotomy for resection of skull base tumor 2) Use of neuronavigation for intradural procedure ANESTHESIA: General Operative indications: Kourtney Novak is a very pleasant 47 year old female with a right middle sphenoid wing mass consistent with meningioma. It was initially diagnosed in 2016, now with interval growth. She presents today for the above mentioned procedure. The risks, benefits and outcomes were discussed at length. Findings: 1) Gross total resection of the tumor, Garg grade 2 2) Bone notably brittle and craniotomy flap was fractured in the middle. This was repaired with plates to make it a singular flap 3) DuraMatrix conform for onlay reconstruction SURGERY/PROCEDURE DETAILS: The patient was identified in the preoperative holding area and a preoperative huddle was performed to confirm the patient identity, proposed procedure, and site of surgery. The patient was then transported to the operating room and placed under general endotracheal anesthesia by anesthesia team. Lines were then placed by the anesthesia team and a Nieves was placed. All the dependent portions of the patient were padded and double checked to minimize injury. The Holt head clamp was applied to the patient's head and affixed to the OR table. The neuronavigation system using Hive guard unlimited was then registered and accuracy was confirmed using external anatomical landmarks and previous imaging in the PACS system. IV antibiotics, steroids, and Keppra were then administered. The patient was then prepped and draped in standard fashion for cranial surgery. A timeout was then performed in accordance with [facility] operative protocols. A right frontotemporal craniotomy for resection of skull base tumor was performed. Incision was made using #10 blade scalpel on the right side. Noni clips were applied to the skin edges as was necessary for hemostasis. Myocutaneous flaps were then elevated with the temporalis muscle undermined subfascially to the root of the zygoma, keyhole, and frontal part of the zygoma for maximal bony exposure. Hemostasis was achieved. The intended craniotomy site was then marked with a bone pencil. Fenton holes were then placed in strategic places. Bony fragments were freed. The underlying dura was then stripped using a #3 [place]. Using a high speed air drill with guard and footplate, the craniotomy flap was then turned. It was notable that the bone was very brittle and fractured in the middle. The flap was carefully stripped of the dura and then held on the back table for temporary storage. Notably, the 2 halves of the craniotomy flap were connected with plates on both sides to reconnect them. Hemostasis was achieved. The sphenoid wing was drilled laterally towards the tumor. Extensive extradural cauterization of the tumor dura was performed. The tumor involving the bone was drilled using a reynold aurea. The dura over tumor was then opened. The tumor was readily visible. The tumor with the involved dura was then removed with a combination of bipolar electrocautery, scissors. A specimen was sent to pathology. Hemostasis was achieved. A DuraMatrix conform graft was placed for onlay coverage to repair the defect. The pterional craniotomy bones were then secured in their normal positions with MRI-compatible plates and screws. The wound was copiously irrigated. All retracting devices were removed from the wound. All temporary implants were removed from the wound. Prior to closure, surgical count was correct and verified. The wound was closed in the usual fashion. Multiple layers of 2-0 Nurolon sutures approximated the temporalis muscular flap and fascia. Inverted 3-0 interrupted vicryl galeal and demarcus for skin were placed. The wound was then dressed with xeroform, telfa, and gauze. A head wrap was placed. At the end of the case, all counts were correct. The patient was gently emerged from anesthesia and extubated. Patient was then transferred to the recovery room in stable condition. PRE-OP/PRE-PROCEDURE DIAGNOSIS: Right sphenoid wing meningioma POST-OP/POST-PROCEDUR E DIAGNOSIS: Same as Preop ESTIMATED BLOOD LOSS: 150 ml SPECIMENS: ID Type Source Tests Collected by Time Destination A : right middle sphenoid wing tumor Tissue Brain, Resection SURGICAL PATHOLOGY Erik Pineda MD 02/20/2025 3:13 PM IMPLA (more content not included)... Normal [facility] Pathology biopsy report Alexis (Tiss)on 02-20-2025 AP DISCLAIMER Normal [facility] Comment on above: Order Comment: Speci men Type: TISSUE SPECIMENOrdering Facility: [facility] Address: [address] [place] [address] Result Comment: Leesa brandon Developed Test (LDT) Disclaimer: Performance characteristics of immunohistochemical, immunofluorescent, and chromogenic in-situ hybridization tests have been determined by the performing laboratory within [facility] Pathology and Laboratory Medicine Department ([facility], [facility], [facility], [facility], [facility], [facility], or [facility]) in a manner consistent with CLIA requirements. One or more of these tests may not have been cleared or approved by the FDA. RT-PLM is regulated under CLIA as qualified to perform high-complexity testing. These tests are used for clinical purposes. These should not be regarded as investigational or for research. Positive and negative controls stain appropriately. Performed By: #### 6 6121-5 ####[facility] [id number] [place] [address] [place] CASE REPORT Normal [facility] Comment on above: Order Comment: Speci men Type: TISSUE SPECIMENOrdering Facility: [facility] Address: [address] [place] [address] Result Comment: Surg ica Pathology Report Case: [id number] Authorizing Provider: Erik Pineda MD Collected: 02/20/2025 03:13 PM Ordering Location: Admitting Received: 02/20/2025 04:45 PM Pathologist: Brody Olvera MD Specimen: Brain, Resection, right middle sphenoid wing tumor Performed By: #### 6 6121-5 ####[facility] LABIA [id number] [place] [address] [place] CLINICAL HISTORY Normal [facility] Comment on above: Order Comment: Speci sonja Type: TISSUE SPECIMENOrdering Facility: [facility] Address: [address] [place] [address] Result Comment: Pre- op diagnosis: Intracranial meningioma (HCC) [D32.0] Preop testing [Z01.818] Performed By: #### 6 6121-5 ####[facility] [id number] [address] [address] [place] DIAGNOSIS COMMENT Immunohistochemical staining of the tumor with antibodies to SSTR2a and MT was performed on block A1. The tumor shows positive staining with both antibodies, consistent with the diagnosis. A Ki-67 index of approximately 2-3% is focally noted. Normal [facility] Comment on above: Order Comment: Speci men Type: TISSUE SPECIMENOrdering Facility: [facility] Address: [address] [place] [address] Performed By: #### 6 6121-5 ####[facility] LABCLIA [id number] [address] FINAL DIAGNOSIS Normal [facility] Comment on above: Order Comment: Speci men Type: TISSUE SPECIMENOrdering Facility: [facility] Address: [address] [place] [address] Result Comment: A. R ight middle sphenoid wing region, excision: - Morphologically consistent with meningothelial meningioma, WHO grade 1 at 1536 EDT Performed By: #### 6 6121-5 ####[facility] LABCLIA [id number] [address] STATES OF [facility] FINAL PERFORMING LAB Normal [facility] Comment on above: Order Comment: Speci men Type: TISSUE SPECIMENOrdering Facility: [facility] Address: [address] [place] [address] Result Comment: Diag nostic interpretation performed at: [facility], [address] [place] [address] CLIA# [id number] Delivery Man: Charan Ryan MD Performed By: #### 6 6121-5 ####[facility] LABCL[facility] [id number] [address] [place] GROSS DESCRIPTION Normal [facility] Comment on above: Order Comment: Speci men Type: TISSUE SPECIMENOrdering Facility: [facility] Address: [address] [place] [address] Result Comment: Angelito magdaleno, Resection Received in formalin, labeled as brain resection, right middle sphenoid wing tumor is a single bryant-brown irregular rubbery tissue measuring 2.1 x 1.3 x 0.5 cm. Sectioning reveals bryant-davidson homogenous cut surfaces. Totally submitted in cassettes A1-A2. CG February 21, 2025 10:13 AM Gross examination performed at [facility], [facility] [place] [address] Performed By: #### 6 6121-5 ####[facility] LABCLIA [id number] [facility] [id number] [place], [place] [id number] [facility] CNPNon 02-17-2025 CNPN Telephone (NSCAMN) KOURTNEY NOVAK ([id number]) 1975 F Date Time Provider Department 02/17/25 MARIO ALBERTO PHILLIPS [facility] During your visit today, we recorded the following information about you: Mario Alberto Phillips RN 02/17/2025 3:51 PM Signed Called the patient for pre-op instructions. Questions pertaining to hospital stay and after hospital discharge instructions were addressed. She was made aware to touch base after she gets discharged home for review of hospital discharge instructions and confirming postop follow up appts. Mario Alberto Phillips RN, Edging Machine Feeder Allergies As of Date: 02/17/2025 (No Known Allergies) Date Reviewed: 02/14/2025 Reviewed by: Jace Lainez, RT(R) - Fully Assessed Reason for Visit: PreOp Call [[id number]] Prescriptions as of 02/17/2025 - ondansetron orally disintegrating (ZOFRAN ODT) 4 mg disintegrating tablet Take 4 mg by mouth every 8 hours as needed. - medroxyPROGESTERone (DEPO-PROVERA) 150 mg/mL injection Inject 150 mg intramuscularly every 12 weeks. - mupirocin (BACTROBAN) 2 % ointment two times a day for 5 days. Apply 0.5 inch with cotton swab (Q-tip) to each nostril in the morning and evening for 5 days prior to and including day of surgery. - methocarbamol (ROBAXIN) 500 mg tablet TAKE 1 TABLET BY MOUTH TWICE A DAY NEEDED - DULoxetine (CYMBALTA) 60 mg capsule Take 1 capsule by mouth once daily. - DULoxetine (CYMBALTA) 30 mg capsule Take one tab along with the 60mg tab to equal 90mg po qd - etodolac (LODINE) 400 mg tablet One tab po bid prn - predniSONE (DELTASONE) 5 mg tablet TAKE 1 TO 2 TABLETS BY MOUTH EVERY DAY - levothyroxine (SYNTHROID) 50 mcg tablet Take 50 mcg by mouth daily before breakfast. - hydrOXYchloroQUINE (PLAQUENIL) 200 mg tablet Take 1 tablet by mouth two times a day. - benzonatate (TESSALON PERLES ORAL) - budesonide (PULMICORT) 1 mg/2 mL nebulizer [...] Take 20 mg by mouth once daily. Problem List As Of Date 02/17/2025 Noted Resolved Intracranial meningioma (HCC) [D32.0] 06/01/2023 Chronic tension-type headache, intractable [G44*06/01/2023 Anxiety [F41.9] COPD (chronic obstructive pulmonary disease) (H* Depression [F32.A] 02/14/2025 Diabetes mellitus (HCC) [E11.9] Mixed hyperlipidemia [E78.2] Fibromyalgia [M79.7] MAREK (obstructive sleep apnea) [G47.33] 02/14/2025 GERD (gastroesophageal reflux disease) [K21.9] 02/14/2025 Hypothyroidism [E03.9] 02/14/2025 Class 3 severe obesity due to excess calories w*02/14/2025 Inflammatory arthritis [M19.90] 02/14/2025 Encounter Status:Closed by MARIO ALBERTO PHILLIPS on 02/17/25 Normal [facility] 02-15-2025 KIRTI Telephone (MALENARA) KOURTNEY NOVAK ([id number]) 1975 F Date Time Provider Department 02/15/25 MEHUL MARTIN During your visit today, we recorded the following information about you: Mehul Martin APRN.CNP 02/15/2025 8:15 AM Signed Please call patient. Lab did not draw [place], A1C, or BMP. Please have her go to closest [facility] lab to have them drawn. She can go to [facility] cancer center in [place] if that is best for her thank you. Thank you, Mehul Martin APRN.Barbara Sinclair LPN 02/15/2025 8:22 AM Signed I called and spoke with patient. Relayed below message; denies questions at this time. Will go to [facility]. Barbara Rosenthal LPN February 15, 2025 8:22 AM Mehul Martin APRN.CNP 02/17/2025 4:16 PM Signed Lab still did not draw BMP ordered by Dr. Pineda. Labs client services unable to add. Will place DOS BMP Allergies As of Date: 02/15/2025 (No Known Allergies) Date Reviewed: 02/14/2025 Reviewed by: Jace Lainez, RT(R) - Fully Assessed Reason for Visit: Patient Update [1234] Prescriptions as of 02/17/2025 - ondansetron orally disintegrating (ZOFRAN ODT) 4 mg disintegrating tablet Take 4 mg by mouth every 8 hours as needed. - medroxyPROGESTERone (DEPO-PROVERA) 150 mg/mL injection Inject 150 mg intramuscularly every 12 weeks. - mupirocin (BACTROBAN) 2 % ointment two times a day for 5 days. Apply 0.5 inch with cotton swab (Q-tip) to each nostril in the morning and evening for 5 days prior to and including day of surgery. - methocarbamol (ROBAXIN) 500 mg tablet TAKE 1 TABLET BY MOUTH TWICE A DAY NEEDED - DULoxetine (CYMBALTA) 60 mg capsule Take 1 capsule by mouth once daily. - DULoxetine (CYMBALTA) 30 mg capsule Take one tab along with the 60mg tab to equal 90mg po qd - etodolac (LODINE) 400 mg tablet One tab po bid prn - predniSONE (DELTASONE) 5 mg tablet TAKE 1 TO 2 TABLETS BY MOUTH EVERY DAY - levothyroxine (SYNTHROID) 50 mcg tablet Take 50 mcg by mouth daily before breakfast. - hydrOXYchloroQUINE (PLAQUENIL) 200 mg tablet Take 1 tablet by mouth two times a day. - benzonatate (TESSALON PERLES ORAL) - budesonide (PULMICORT) 1 mg/2 mL nebulizer [...] Take 20 mg by mouth once daily. Problem List As Of Date 02/15/2025 Noted Resolved Intracranial meningioma (HCC) [D32.0] 06/01/2023 Chronic tension-type headache, intractable [G44*06/01/2023 Anxiety [F41.9] COPD (chronic obstructive pulmonary disease) (H* Depression [F32.A] 02/14/2025 Diabetes mellitus (HCC) [E11.9] Mixed hyperlipidemia [E78.2] Fibromyalgia [M79.7] MAREK (obstructive sleep apnea) [G47.33] 02/14/2025 GERD (gastroesophageal reflux disease) [K21.9] 02/14/2025 Hypothyroidism [E03.9] 02/14/2025 Class 3 severe obesity due to excess calories w*02/14/2025 Inflammatory arthritis [M19.90] 02/14/2025 Encounter Status:Closed by BARBARA ROSENTHAL on 02/15/25 Normal [facility] CONFIRM BLOOD TYPEon 025 ABO A Normal [facility] Comment on above: Order Comment: Speci men Type: BLOOD SPECIMENOrdering Facility: [facility] Address: [address] [place] [address] Performed By: #### C ONABO ####[facility] BLO[facility] BANKCLIA [id number] [place] [address] [place] Rh Nom (Bld) Negative Normal [facility] Comment on above: Order Comment: Adelaida casillas Type: BLOOD SPECIMENOrdering Facility: [facility] Address: [address] [place] [address] Performed By: #### C ONABO ####[facility] BLOOD BANKCLIA [id number] [place] [address] [place] HbA1c (Bld)on 02-15-2025 Average glucose Estimated from glycated hemoglobin (Bld) [Mass/Vol] 108 mg/dL Normal [facility] Comment on above: Order Comment: Adelaida men Type: BLOOD SPECIMENOrdering Facility: [facility] Address: [address] [place] [address] Result Comment: eAG: (Estimated average glucose) is a calculated value from HgbA1c and is labor relations representative of the average blood glucose level in the last 2-3 month period. Performed By: #### 5 5454-3 ####[facility] LABCLIA [id number] [place] [address] [place] HbA1c (Bld) [Mass fraction] 5.4 % Normal 4.3-5.6 [facility] Comment on above: Order Comment: Speci men Type: BLOOD SPECIMENOrdering Facility: [facility] Address: [address] [place] [address] Result Comment: Amer [place] Diabetes Association guidelines indicate that patients with HgbA1c in the range 5.7-6.4% are at increased risk for development of diabetes, and intervention by lifestyle modification may be beneficial. HgbA1c greater or equal to 6.5% is considered diagnostic of diabetes. Performed By: #### 5 5454-3 ####[facility] LABCLIA [id number] [place] [address] [place] ALT SerPl-cCncon 02-14-2025 ALT [Catalytic activity/Vol] 27 U/L Normal 7-38 [facility] Comment on above: Order Comment: Speci men Type: BLOOD SPECIMENOrdering Facility: [facility] Address: [address] [place] [address] Performed By: #### 1 742-6, 1920-04, 1988-01 ####[facility] LABCLIA [id number] [place] [address] [place] AST SerPl-cCncon 02-14-2025 AST [Catalytic activity/Vol] 20 U/L Normal 13-35 [facility] Comment on above: Order Comment: Speci men Type: BLOOD SPECIMENOrdering Facility: [facility] Address: [address] [place] [address] Performed By: #### 1 742-6, 1920-04, 1988-01 ####[facility] [id number] [place] [address] [place] CBC panel Auto (Bld)on 02-14 Erythrocyte distribution width (RBC) [Ratio] 13.4 % Normal 11.5-15.0 [facility] Comment on above: Order Comment: Speci men Type: BLOOD SPECIMENOrdering Facility: [facility] Address: [address] [place] [address] Performed By: #### 5 8410-2, 4537-7 ####[facility]IA [id number] [place] [address] [place] Hematocrit (Bld) [Volume fraction] 39.2 % Normal 36.0-46.0 [facility] Comment on above: Order Comment: Speci men Type: BLOOD SPECIMENOrdering Facility: [facility] Address: [address] [place] [address] Performed By: #### 5 8410-2, 4537-7 ####[facility] [id number] [place] [address] [place] Hemoglobin (Bld) [Mass/Vol] 12.6 g/dL Normal 11.5-15.5 [facility] Comment on above: Order Comment: Speci men Type: BLOOD SPECIMENOrdering Facility: [facility] Address: [address] [place] [address] Performed By: #### 5 8410-2, 453-7 ####[facility]IA [id number] [place] [address] [place] MCH (RBC) [Entitic mass] 29.9 pg Normal 26.0-34.0 [facility] Comment on above: Order Comment: Speci men Type: BLOOD SPECIMENOrdering Facility: [facility] Address: [address] [place] [address] Performed By: #### 5 8410-2, 7-7 ####[facility]IA [id number] [place] [address] [place] MCHC (RBC) [Mass/Vol] 32.1 g/dL Normal 30.5-36.0 [facility] Comment on above: Order Comment: Speci men Type: BLOOD SPECIMENOrdering Facility: [facility] Address: [address] [place] [address] Performed By: #### 5 8410-2, 7 ####[facility] LABIA [id number] [place] [id number] [place] MCV (RBC) [Entitic vol] 93.1 fL Normal 80.0-100.0 [facility] Comment on above: Order Comment: Speci men Type: BLOOD SPECIMENOrdering Facility: [facility] Address: [address] [place] [address] Performed By: #### 5 8410-2, 4537-03 ####[facility] [id number] [place] [address] [place] Nucleated RBC (Bld) [#/Vol] 10*3/uL Normal <0.01 [facility] Comment on above: Order Comment: Speci men Type: BLOOD SPECIMENOrdering Facility: [facility] Address: [address] [place] [address] Performed By: #### 5 8410-2, 4537-03 ####[facility] [id number] [address] [place] Platelet mean volume (Bld) [Entitic vol] 10.9 fL Normal 9.0-12.7 [facility] Comment on above: Order Comment: Speci men Type: BLOOD SPECIMENOrdering Facility: [facility] Address: [address] [place] [address] Performed By: #### 5 8410-2, 4537-03 ####[facility] [id number] [place] [id number] [place] Platelets (Bld) [#/Vol] 329 10*3/uL Normal 150-400 [facility] Comment on above: Order Comment: Speci men Type: BLOOD SPECIMENOrdering Facility: [facility] Address: [address] [place] [address] Performed By: #### 5 8410-2, 4537-03 ####[facility] LABCLIA [id number] [address] [address] [place] RBC (Bld) [#/Vol] 4.21 10*6/uL Normal 3.90-5.20 [facility] Comment on above: Order Comment: Speci men Type: BLOOD SPECIMENOrdering Facility: [facility] Address: [address] [place] [address] Performed By: #### 5 8410-2, 4537-7 ####[facility] LABIA [id number] [address] [address] [place] WBC (Bld) [#/Vol] 7.27 10*3/uL Normal 3.70-11.00 [facility] Comment on above: Order Comment: Speci men Type: BLOOD SPECIMENOrdering Facility: [facility] Address: [address] [place] [address] Performed By: #### 5 8410-2, 4537-7 ####[facility] [id number] [place] [id number] [place] CRP SerPl-mCncon 02-14-2025 CRP [Mass/Vol] 0.6 mg/dL Normal <0.9 [facility] Comment on above: Order Comment: Speci men Type: BLOOD SPECIMENOrdering Facility: [facility] Address: [address] [place] [address] Performed By: #### 1 742-6, 8, 1988-01 ####[facility] [id number] [place] [id number] [place] [id number] 02-14-2025 ECG01 Ventricular Rate : 7 7 BPM Atrial Rate : 77 BPM P-R Interval : 138 ms QRS Duration : 82 ms Q-T Interval : 386 ms QTC Calculation(Bazett) : 436 ms Calculated P [place] : 36 degrees Calculated R [place] : 47 degrees Calculated T [place] : 47 degrees NORMAL SINUS RHYTHM NORMAL ECG Confirmed by DI YORK M.D. ([id number]) on 02/14/2025 1:23:03 PM NAME : KOURTNEY NOVAK PID : [id number] : 1975 Gender : Female Race : [...] : ERIK PINEDA Acquired by : am, Normal [facility] ESR Westergren method (Bld) [Velocity]on 02-14-2025 ESR (Bld) [Velocity] 2 mm/h Normal 0-20 [facility] Comment on above: Order Comment: Speci men Type: BLOOD SPECIMENOrdering Facility: [facility] Address: [address] [place] [address] Performed By: #### 5 8410-2, 4537-7 ####[facility] LABCLIA [id number] [place] [address] [place] HISTORY PHYSICALon HISTORY PHYSICAL HNO ID: [id number] Author: MEHUL MARTIN APRN.CNP Service: ? Author Type: Nurse Practitioner Type: H&P Filed: 02/17/2025 16:23 Note Text: HISTORY AND PHYSICAL EXAMINATION SERVICE DATE: 02/14/2025 SERVICE TIME: 7:58 AM PRIMARY CARE PHYSICIAN: Sammie Gonzalez MD REASON FOR VISIT: Kourtney Novak is a 49 year old female who is scheduled for Right - ORBITOCRANIAL TO ANT CRAN FOSSA W/ SUPRAORB RIDGE OSTEOTOMY AND ELEV FRONTANDTEMP LOBE Right - RESECTION LESION BASE OF ANTERIOR CRANIAL FOSSA INTRADURAL W/ DURAL REPAIR at the request of Dr. Erik Pineda for consultation. My final recommendation will be communicated back to the requesting physician by way of shared medical record or letter. Assessment Patient has the following medical conditions which may affect karishma-operative course: Fibromyalgia Assessment: Controlled with Cymbalta Monitored by [facility] rheumatology COPD (chronic obstructive pulmonary disease) ([facility]) Assessment: Stable with nebulizer treatments Denies any SOB Denies any Home oxygen use Lungs clear on exam SpO2 in office today 96% Monitored by PCP MAREK (obstructive sleep apnea) Assessment: Does not use CPAP Mixed hyperlipidemia Assessment: Compliant with Statin GERD (gastroesophageal reflux disease) Assessment: Controlled with dexilant Hypothyroidism Assessment: Controlled with levothyroxine Diabetes mellitus ([facility]) Assessment: Complaint with oral medications -A1C ordered today Instructions provided to patient on how long to hold diabetic medications prior to procedure Anxiety Assessment: Controlled with Lamictal Class 3 severe obesity due to excess calories with serious comorbidity and body mass index (BMI) of 40.0 to 44.9 in adult ([facility]) Assessment: Body mass index is 40.98 kg/m?. Inflammatory arthritis Assessment: Stable ON Plaquenil and prednisone as needed Follows with Dr. Villegas Rheumatology ANESTHESIA FINDINGS: Intubation History: No history of difficult intubation Significant Anesthesia Considerations: none Airway History: No history of difficult airway Ritchie Activity Status Index: METS: Walk indoors, such as around the house (1.75 METs) Do light work around the house, such as dusting or washing dishes (2.70 METs) Take care of self; that is eating, dressing, bathing, using the toilet (2.75 METs) Walk a block or two on level ground (2.75 METs) Do moderate work around the house, such as vacuuming, sweeping floors, or carrying in groceries (3.50 METs) Climb a flight of stairs or walk up a hill (5.50 METs) DASI Score: 18.95 Patient denies any chest pain or undue shortness of breath with the above physical activity. [id number] Score: Age: <65 Sex: female CHF history: No Hypertension history: No Stroke/TIA/thromboemb olism history: No Vascular disease history: No Diabetes history: Yes [id number] Score: 2 ARISCAT Score: Age: <=50 Preoperative SpO2: >=96% Respiratory infection in the last month: No Preoperative anemia: No Surgical incision: peripheral Duration of surgery: >3 hrs Emergency procedure: No ARISCAT Score: 23 I - PHYSICAL EVALUATION AIRWAY Patient intubated: No. Tracheostomy tube not present Mallampati: III. TM distance: >3 FB. Neck ROM: full ROM without neurological symptoms. Mouth opening: adequate. Short neck: no. Thick neck: no Wilson present: no Lip Bite Test: II Microretrognathia/Elbert ronagthia/Recessed Chin: No DENTAL Dental findings: teeth intact. Dentures, upper: partial. II - ANESTHESIA PLAN Beta Meka Monitoring Plan Post Procedure Analgesic Plan Prepared for surgery: This patient is optimally prepared for surgery pending DOS BMP Patient has been to lab twice and they did not draw the BMP from Dr. Pineda CONSULTS: Patient does not require consults for optimization at this time. The Following Tests/Procedures Have Been Initiated: Orders Placed This Encounter Hemoglobin A1C Standing Status: Future Number of Occurrences: 1 Expected Date: 02/14/2025 Expiration Date: 05/16/2025 Confirm Blood Type Standing Status: Future Number of Occurrences: 1 Expected Date: 02/14/2025 Expiration Date: 05/16/2025 Did Blood Bank direct you to place this order:: No - Presurgical Workflow ondansetron orally disintegrating (ZOFRAN ODT) 4 mg disintegrating tablet Sig: Take 4 mg by mouth every 8 hours as needed. medroxyPROGESTERone (DEPO-PROVERA) 150 mg/mL injection Sig: Inject 150 mg intramuscularly every 12 weeks. mupirocin (BACTROBAN) 2 % ointment Sig: two times a day for 5 days. Apply 0.5 inch with cotton swab (Q-tip) to each nostril in the morning and evening for 5 days prior to and including day of surgery. Dispense: 22 g Refill: 0 Planned Anesthetic: Per anesthesia choice Subjective CHIEF COMPLAINT: Intracranial Meningioma HPI: 49 year old year old Female presents to [facility] for evaluation. Patient has meningioma that was (more content not included)... 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 No acute abnormalities. Hybrid Car Mechanic: GUANACO Transcribe Date/Time: Feb 14 2025 10:01A Dictated by : SEAN BLOCK MD This examination was interpreted and the report reviewed and electronically signed by: SEAN BLOCK MD on Feb 14 2025 10:22AM [facility] DIVISION OF RADIOLOGY * * *Final Report* * * DATE OF EXAM: Feb 14 2025 10:37AM [facility] 0295 - MRI BRAIN WO/W [...] tissue mass extending into the of the data analytics analyst or parapharyngeal spaces. The soft tissue planes of the, retropharyngeal, and prevertebral spaces are maintained. The visualized parotid glands are normal in appearance. Nasopharynx/Oropharyn x: The nasopharynx and oropharynx are normal in appearance. DIVISION OF RADIOLOGY Provider, [facility] - 02/14/2025 * * *Final Report* * * DATE OF EXAM: Feb 14 2025 10:37AM [facility] 0295 - MRI BRAIN WO/W [...] tissue mass extending into the of the data analytics analyst or parapharyngeal spaces. The soft tissue planes [...] exam in November 2015. No acute abnormalities. Hybrid Car Mechanic: PSCB Transcribe Date/Time: Feb 14 2025 10:01A Dictated by : SEAN BLOCK MD This examination was interpreted and the report reviewed and electronically signed by: SEAN BLOCK MD on Feb 14 2025 10:22AM EST [facility] Radiology Study observation (narrative) Elisa rivera [facility] MR Brain WO and W contrast I VOrdered By: [facility] Provider on 02-14-2025 [facility] MRI BRAIN WO/W IVCONon 02-14 MRI BRAIN WO/W IVCON * * *Final Report* * * DATE OF EXAM: Feb 14 2025 10:37AM [facility] 0295 - MRI BRAIN WO/W [...] tissue mass extending into the of the data analytics analyst or parapharyngeal spaces. The soft tissue planes of the, retropharyngeal, and prevertebral spaces are maintained. The visualized parotid glands are normal in appearance. Nasopharynx/Oropharyn x: The nasopharynx and oropharynx are normal in appearance. 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 No acute abnormalities. Hybrid Car Mechanic: GUANACO Transcribe Date/Time: Feb 14 2025 10:01A Dictated by : SEAN BLOCK MD This examination was interpreted and the report reviewed and electronically signed by: SEAN BLOCK MD on Feb 14 2025 10:22AM EST [id number] Normal [facility] STAPHYLOCOCCUS AUREUS AND MR SA SCREEN, PCR, NASALon 02-14-2025 S. aureus and MRSA panel RADHA+probe (Nose) Not detected Normal Not Detected [facility] Comment on above: Order Comment: Speci men Type: SWABOrdering Facility: [facility] Address: [address] [place] [address] Performed By: #### S APCR ####[facility] LABCLIA [id number] [address] [place] TYPE AND SCREEN,30 DAYon ABO A Normal [facility] Comment on above: Order Comment: Speci men Type: BLOOD SPECIMENOrdering Facility: [facility] Address: [address] [place] [address] Performed By: #### T SCR30 ####[facility] BLOOD BANKIA [id number] [place] [address] [place] Rh Nom (Bld) Negative Normal [facility] Comment on above: Order Comment: Speci men Type: BLOOD SPECIMENOrdering Facility: [facility] Address: [address] [place] [address] Performed By: #### T SCR30 ####[facility] BLOOD BANKIA [id number] [place] [address] [place] US renal BIon 02-10-2025 US renal BI [facility] Main [address] [address] Ultrasound Report Signed Patient: Kourtney Novak MR#: [id number] : 1975 Acct:[id number] Age/Sex: 49 / F ADM Date: 02/10/25 Loc: Room: Type: REG CLI Attending Dr: Sammie Gonzalez MD Ordering Provider: Sammie Gonzalez MD Date of Service: 02/10/25 US/US renal BI: N28.9 Copies to: Sammie Gonzalez MD Bilateral Renal Ultrasound HISTORY: Abnormal renal labs. COMPARISON: None RIGHT kidney measures 10.4 cm. LEFT kidney measures 10.4 cm. Hydronephrosis: None RENAL STONE: No shadowing renal calculus is seen. RENAL LESIONS: No renal lesion identified. URINARY BLADDER: Bilateral ureteral jets identified. REPRODUCTIVE STRUCTURES Not assessed US/US renal BI IMPRESSION : No hydronephrosis. Impression dictated by: George Gray M.D. 02/10/2025 4:44 PM Dictation Location: [place] [address] Tech: Vani Baker Transcribed By: GRACIE 02/10/25 1644 Dictated By: George Gray DO 02/10/25 164 Signed By: 02/10/25 164 Normal The Counts Include [address] [facility] At [facility] CNOVon 12-28-2024 CNOV Office Visit (MAGDALENAUAV ) KISHOREKOURTNEY Alex ([id number]) 1975 F Date Time Provider Department 12/28/24 9:20 AM ZEINAB WOOD During your visit today, we recorded the following information about you: Pulse Blood pressure Weight 109/minute 104/65 110.2 kg Zeinab Wood MD 12/28/2024 10:08 AM Signed Kourtney Novak is a 47 [...] dullness to percussion. There is good air moveme (more content not included)... Normal [facility] X-ray reportOrdered By: Quirino Hoffmann on 12-27-2024 Study report [facility] [address] [place] [address] XRay Report Signed Patient: Kourtney Novak MR#: [id number] : 1975 Acct:[id number] Age/Sex: 49 / F ADM Date: 5 Loc: [facility]: Elyssa Gomes MD Copies to: Elyssa Gomes MD~ Ordering Provider: Elyssa Gomes MD Date of Service: 12/27/24 XR/XR wrist RT min 3V*: M25.531 - Pain in right wrist 4 views of the right wrist INDICATION: Right wrist x-ray 09/24/2022 FINDINGS: There is no evidence acute fracture or dislocation. Progression of the radiocarpal joint space narrowing and remodeling along the distal radius with articular sclerosis. Subchondral cystic change involving the radial radiusnoted distally. 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 Widening of the scapholunate interval. Mild soft tissue swelling anterior and dorsal wrist. XR/XR wrist RT min 3V* IMPRESSION: Progression of the radiocarpal degenerative changes in the suspectedareas of subchondral lucency involving the lunate and articular surface of the radius. 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 Impression dictated by: Lincoln Hoffmann M.D.12/27/2024 4:47 PM Dictation Location: [place] [address] Transcribed By: [facility] 12/27/241646 Dictated By: Lincoln Hoffmann MD 12/27/241642 Signed By: 12/27/241646 [facility] Work Phone: XR wrist RT min 3V*on 2024 XR wrist RT min 3V* [facility] [address] [place] [address] XRay Report Signed Patient: Kourtney Novak MR#: [id number] : 1975 Acct:[id number] Age/Sex: 49 / F ADM Date: 12/27/24 Loc: [facility] Room: Type: [facility] Attending Dr: Elyssa Gomes MD Copies to: [...] Lincoln Hoffmann M.D.12/27/2024 4:47 PM Dictation Location: [place] [address] Transcribed By: [facility] 12/27/241646 Dictated By: Lincoln Hoffmann MD 12/27/241642 Signed By: 12/27/241646 Normal The Counts Include [facility] At [facility] Basophils Auto (Bld) [#/Vol] Ordered By: Sammie Gonzalez on 12-13-2024 Basophils (Bld) [#/Vol] Automated basoph il count 0.0-0.2 [facility] Basophils/100 WBC Auto (Bld) Ordered By: Sammie Gonzalez on 12-13-2024 Basophils/100 WBC (Bld) Automated basophil % . [facility] Complete Blood Count Auto Di ffon 12-13-2024 Basophils (Bld) [#/Vol] 0.1 10*3/uL Normal 0.0-0.2 The Counts Include [facility] Comment on above: Result Comment: PERF ORMED BY: [facility] [address] [place] [address] PATHOLOGIST SURGICAL INSTRUMENT TECHNICIAN PAKO RAMACHANDRAN M.D. Performed By: #### C BC, FE, MARIELLA ####[place] [id number] [facility] Basophils/100 WBC (Bld) 1.0 % Normal . T he Counts Include 234 [facility] At [facility] Comment on above: Performed By: #### C BC, FE, MARIELLA ####[place] [id number] [facility] Eosinophils (Bld) [#/Vol] 0.2 10*3/uL Normal 0.0-0.45 The Counts Include [facility] Comment on above: Performed By: #### C VAUGHN, FE, MARIELLA ####[address] Eosinophils/100 WBC (Bld) 2.7 % Normal . The Counts Include [address] [facility] Comment on above: Performed By: #### C VAUGHN, FE, MARIELLA ####[place] [id number] [facility] Erythrocyte distribution width (RBC) [Ratio] 13.3 % Normal 11.9-15.3 The Counts Include [address] [facility] Comment on above: Performed By: #### C BC, FE, MARIELLA ####[place] [id number] [facility] Hematocrit (Bld) [Volume fraction] 38.5 % Normal 34.0-46.4 The Counts Include [address] [facility] At [facility] Comment on above: Performed By: #### C BC, FE, MARIELLA ####[place] [id number] [facility] Hemoglobin (Bld) [Mass/Vol] 12.7 g/dL Normal 11.8-15.4 The Counts Include [address] [facility] At [facility] Comment on above: Performed By: #### C BC, FE, MARIELLA ####[place] [id number] [facility] Lymphocytes (Bld) [#/Vol] 2.6 10*3/uL Normal 1.00-4.8 The Counts Include 234 [facility] At [facility] Comment on above: Performed By: #### C BC, FE, MARIELLA ####[address] Lymphocytes/100 WBC (Bld) 30.8 % Normal . The Counts Include 234 [facility] At [facility] Comment on above: Performed By: #### C BC, FE, MARIELLA ####[address] MCH (RBC) [Entitic mass] 30.2 pg Normal 24.7-34.3 The Counts Include 234 [facility] At [facility] Comment on above: Performed By: #### C BC, FE, MARIELLA ####[address] MCV (RBC) [Entitic vol] 91.4 fL Normal 80-100 [facility] Comment on above: Performed By: #### C BC, FE, MARIELLA ####[address] Mean Corpuscular HGB Conc 33.1 g/dL Normal 32.0-35.0 The Counts Include 234 [facility] At [facility] Comment on above: Performed By: #### C BC, FE, MARIELLA ####[address] Monocytes (Bld) [#/Vol] 0.9 10*3/uL High 0.0-0.8 The Counts Include 234 [facility] At [facility] Comment on above: Performed By: #### C BC, FE, MARIELLA ####[address] Monocytes/100 WBC (Bld) 11.1 % Normal . [facility] Comment on above: Performed By: #### C BC, FE, MARIELLA ####[address] Neutrophils (Bld) [#/Vol] 4.6 10*3/uL Normal 1.8-7.7 The Counts Include 234 [facility] At [facility] Comment on above: Performed By: #### C BC, FE, MARIELLA ####[address] Neutrophils/100 WBC (Bld) 54.4 % Normal . The Counts Include 234 [facility] At [facility] Comment on above: Performed By: #### C LAURIE MENDES, MARIELLA ####[address] NRBC% 0.1 /100{WBC} Normal 0-0.5 [facility] Comment on above: Performed By: #### C VAUGHN FE, MARIELLA ####[address] Platelet mean volume (Bld) [Entitic vol] 8.6 fL Normal 6.3-10.7 [facility] Comment on above: Performed By: #### C LAURIE MENDES, MARIELLA ####[address] Platelets (Bld) [#/Vol] 372 10*3/uL Normal 150-450 The Counts Include 234 [facility] At [facility] Comment on above: Performed By: #### C LAURIE MENDES, MARIELLA ####[address] RBC (Bld) [#/Vol] 4.22 10*6/uL Normal 3.60-5.00 [facility] Comment on above: Performed By: #### C LAURIE MENDES, MARIELLA ####[address] WBC (Bld) [#/Vol] 8.5 10*3/uL Normal 3.8-11.6 [facility] Comment on above: Performed By: #### C LAURIE MENDES, MARIELLA ####[address] Eosinophils Auto (Bld) [#/Vo l]Ordered By: Sammie Gonzalez on 12-13-2024 Eosinophils (Bld) [#/Vol] Automated eosinophil count 0.0-0.45 [facility] Eosinophils/100 WBC Auto (Bl d)Ordered By: Sammie Gonzalez on 12-13-2024 Eosinophils/100 WBC (Bld) Automated eosinophil % . [facility] Erythrocyte distribution wid th Auto (RBC) [Ratio]Ordered By: Sammie Gonzalez on 12-13-2024 Erythrocyte distribution width (RBC) [Ratio] Erythrocyte distribution width [Ratio] by Automated count 11.9-15.3 [facility] Ferritinon 12-13-2024 Ferritin [Mass/Vol] 56.2 ng/mL Normal 11.0-306.8 [facility] Comment on above: Result Comment: PERF ORMED BY: [facility] [address] [place] [address] PATHOLOGIST SURGICAL INSTRUMENT TECHNICIAN PAKO RAMACHANDRAN M.D. Performed By: #### C LAURIE MENDES, MARIELLA ####[place] [id number] [place] [address] [facility] Ferritin [Mass/volume] in Se rum or PlasmaOrdered By: Sammie Gonzalez on 12-13-2024 Ferritin [Mass/Vol] Ferritin [Mass/volume] in Serum or Plasma 11.0-306.8 [facility] Hematocrit Auto (Bld) [Volum e fraction]Ordered By: Sammie Gonzalez on 12-13-2024 Hematocrit (Bld) [Volume fraction] Hematocrit [Volume Fraction] of Blood by Automated count 34.0-46.4 [facility] Hemoglobin [Mass/volume] in BloodOrdered By: Sammie Gonzalez on 12-13-2024 Hemoglobin (Bld) [Mass/Vol] Hemoglobin [Mass/volume] in Blood 11.8-15.4 [facility] Ironon 12-13-2024 Iron [Mass/Vol] 37 ug/dL Low 50-212 [facility] Comment on above: Performed By: #### C LAURIE MENDES, MARIELLA ####[place] [id number] [place] [address] [facility] Iron [Mass/volume] in Serum or PlasmaOrdered By: Sammie Gonzalez on 12-13-2024 Iron [Mass/Vol] Iron [Mass/volume] i n Serum or Plasma Low 50-212 [facility] Leukocytes [#/volume] correc jana for nucleated erythrocytes in Blood by Automated counOrdered By: Sammie Gonzalez on 12-13-2024 WBC corrected for nucl RBC Auto (Bld) [#/Vol] Leukocytes [#/volume] corrected for nucleated erythrocytes in Blood by Automated coun 3.8-11.6 [facility] Lymphocytes Auto (Bld) [#/Vo l]Ordered By: Sammie Gonzalez on 12-13-2024 Lymphocytes (Bld) [#/Vol] Lymphocytes [#/volume] in Blood by Automated count 1.00-4.8 [facility] Lymphocytes/100 WBC Auto (Bl d)Ordered By: Sammie Gonzalez on 12-13-2024 Lymphocytes/100 WBC (Bld) Lymphocytes/100 leukocytes in Blood by Automated count . [facility] MCH Auto (RBC) [Entitic mass ]Ordered By: Sammie Gonzalez on 12-13-2024 MCH (RBC) [Entitic mass] MCH [Entitic mass] by Automated count 24.7-34.3 [facility] MCHC Auto (RBC) [Mass/Vol]Or dered By: Sammie Gonzalez on 12-13-2024 MCHC (RBC) [Mass/Vol] MCHC [Mass/volume] by Automated count 32.0-35.0 [facility] MCV Auto (RBC) [Entitic vol] Ordered By: Sammie Gonzalez on 12-13-2024 MCV (RBC) [Entitic vol] MCV [Entitic vol ume] by Automated count 80-100 [facility] Monocytes Auto (Bld) [#/Vol] Ordered By: Sammie Gonzalez on 12-13-2024 Monocytes (Bld) [#/Vol] Automated blood monocyte count High 0.0-0.8 [facility] Monocytes/100 WBC Auto (Bld) Ordered By: Sammie Gonzalez on 12-13-2024 Monocytes/100 WBC (Bld) Automated monocyte % . [facility] Neutrophils Auto (Bld) [#/Vo l]Ordered By: Sammie Gonzalez on 12-13-2024 Neutrophils (Bld) [#/Vol] Neutrophils [#/volume] in Blood by Automated count 1.8-7.7 [facility] Neutrophils/100 WBC Auto (Bl d)Ordered By: Sammie Gonzalez on 12-13-2024 Neutrophils/100 WBC (Bld) Automated neutrophil % . [facility] Nucleated erythrocytes [Pres ence] in Blood by Automated countOrdered By: Sammie Gonzalez on 12-13-2024 Nucleated RBC Auto Ql (Bld) Nucleated erythrocytes [Presence] in Blood by Automated count 0-0.5 [facility] Platelet mean volume Auto (B ld) [Entitic vol]Ordered By: Sammie Gonzalez on 12-13-2024 Platelet mean volume (Bld) [Entitic vol] Platelet mean volume [Entitic volume] in Blood by Automated count 6.3-10.7 [facility] Platelets Auto (Bld) [#/Vol] Ordered By: Sammie Gonzalez on 12-13-2024 Platelets (Bld) [#/Vol] Platelets [#/vol ume] in Blood by Automated count 150-450 [facility] RBC Auto (Bld) [#/Vol]Ordere d By: Sammie Gonzalez on 12-13-2024 RBC (Bld) [#/Vol] Erythrocytes [#/volume] in Blood by Automated count 3.60-5.00 [facility] WBC Auto (Bld) [#/Vol]Ordere d By: Sammie Gonzalez on 12-13-2024 WBC (Bld) [#/Vol] Leukocytes [#/volume ] in Blood by Automated count 3.8-11.6 [facility] CNPNon 12-05-2024 CNPN Telephone ([facility]) KOURTNEY NOVAK ([id number]) 1975 F Date Time Provider Department 12/05/24 MARIO ALBERTO PHILLIPS [facility] During your visit today, we recorded the [...] was made aware to reach out for questions/concerns/up dates. Mario Alberto Phillips RN, Edging Machine Feeder Allergies As of Date: 12/05/2024 (No Known Allergies) Date Reviewed: 05/30/2024 Reviewed by: Saritha Keith MA - Fully Assessed Reason for Visit: Care Coordination [4880] Cmt: Karthik Follow up - Surgery Planning [...] Status:Closed by MARIO ALBERTO PHILLIPS on 12/05/24 Normal [facility] X-ray reportOrdered By: Samuel Gray on 11-03-2024 Study report [facility] [address] [place] [address] XRay Report Signed Patient: Kourtney Novak MR#: [id number] : 1975 Acct:[id number] Age/Sex: 48 / F ADM Date: 5 Loc: [facility] Room: Type: [facility] Attending Dr: Mk Broderick MD Copies to: Mk Broderick MD~ Ordering Provider: Mk Broderick MD Date of [...] George Gray M.D.11/03/2024 4:19 PM Dictation Location: [place] [address] Transcribed By: [facility] 11/03/24 1619 Dictated By: George Gray DO 11/03/24 1618 Signed By: 11/03/24 1619 [facility] XR shoulder LT min 2V*on XR shoulder LT min 2V* [facility] [address] [place] [address] XRay Report Signed Patient: Kourtney Novak MR#: [id number] : 1975 Acct:[id number] Age/Sex: 48 / F ADM Date: 11/03/24 Loc: [facility] Room: Type: [facility] Attending Dr: Mk Broderick MD Copies to: [...] George Gray M.D.11/03/2024 4:19 PM Dictation Location: [place] [address] Transcribed By: [facility] 11/03/24 161 Dictated By: George Gray DO 11/03/24 1618 Signed By: 11/03/24 1619 Normal The Counts Include [address] [facility] At [facility] Kathy 10-10-2024 KIRTI Telephone ([facility]) OKURTNEY NOVAK ([id number]) 1975 F Date Time Provider Department 10/10/24 ZEINAB WOOD During your visit today, we recorded the following information about you: Susy Escamilla LPN 10/10/2024 4:11 PM Addendum Received fax from [facility]. States that diagnosis code M19.9 ( inflammatory arthritis ) [place] not pass [place] the [address] regarding CBC test. They needs a different order to be placed with another diagnosis code. Please fax to Jimbo Whitten at [phone]. Notice sent to scanning . Please route to [facility] nurse for follow up Susy Escamilla LPN 10/10/2024 5:01 PM Signed Faxed new order with updated diagnosis code . sent to [phone]. Allergies As of Date: 10/10/2024 (No Known Allergies) Date Reviewed: 05/30/2024 Reviewed by: Saritha Keith MA - Fully Assessed Reason for Visit: Edging Machine Feeder - Other [3602] Cmt: Lab order problem Primary Visit Diagnosis:Encounter for medication monitoring [Z51.81] Order(s):ASPARTATE AMINOTRANSFERASE/SGOT [SQAST] Order #: [id number] STANDING ALANINE AMINOTRANSFERASE / SGPT [SQALT] Order #: [id number] STANDING COMPLETE BLOOD COUNT [SQCBC] Order #: [id number] STANDING SEDIMENTATION RATE, WESTERGREN [SQWSR] Order #: [id number] STANDING C-REACTIVE PROTEIN [SQCRP] Order #: [id number] STANDING Prescriptions as of 10/10/2024 - DULoxetine [...] Encounter Status:Closed by SUSY ESCAMILLA on 10/10/24 Normal [facility] Alanine Aminotransferaseon 0 09-20-2024 ALT [Catalytic activity/Vol] 21 U/L Normal The Counts Include [address] [facility] At [facility] Comment on above: Order Comment: PIPER YANCEY Performed By: #### A ST, ALT, CRP, CBC, ESR #### [address] Alanine aminotransferase [En zymatic activity/volume] in Serum or PlasmaOrdered By: Zeinab Wood on 09-20-2024 ALT [Catalytic activity/Vol] Alanine aminotransferase [Enzymatic activity/volume] in Serum or Plasma [facility] Aspartate Amino Transferaseo n 09-20-2024 AST [Catalytic activity/Vol] 14 U/L Normal 13-39 The Counts Include [address] [facility] Comment on above: Order Comment: PIPER YANCEY Performed By: #### A ST, ALT, CRP, CBC, ESR #### [address] Aspartate aminotransferase [ Enzymatic activity/volume] in Serum or PlasmaOrdered By: Zeinab Wood on 09-20-2024 AST [Catalytic activity/Vol] Aspartate aminotransferase [Enzymatic activity/volume] in Serum or Plasma 13-39 [facility] Basophils Auto (Bld) [#/Vol] Ordered By: Zeinab Wood on 09-20-2024 Basophils (Bld) [#/Vol] Automated basoph il count 0.0-0.2 [facility] Basophils/100 WBC Auto (Bld) Ordered By: Zeinab Wood on 09-20-2024 Basophils/100 WBC (Bld) Automated basophil % . [facility] C reactive protein [Mass/vol ume] in Serum or PlasmaOrdered By: Zeinab Wood on 09-20-2024 CRP [Mass/Vol] C reactive protein [Mass/volume] in Serum or Plasma High 0.0-0.5 [facility] C-Reactive Proteinon 025 C-Reactive Protein 0.7 mg/dL High 0.0-0.5 [facility] Comment on above: Order Comment: PIPER YACNEY Result Comment: PERF ORMED BY: [place] [address] PATHOLOGIST SURGICAL INSTRUMENT TECHNICIAN PAKO RAMACHANDRAN M.D. Performed By: #### A ST, ALT, CRP, CBC, ESR #### [address] CNPNon 09-20-2024 CNPN Telephone ([employer]) KOURTNEY NOVAK ([id number]) 1975 F Date Time Provider Department 09/20/24 ZIENAB WOOD During your visit today, we recorded the following information about you: Susy Escamilla LPN 09/20/2024 5:47 PM Signed Lab results received from [facility] . Copy sent to scan, copy sent to provider folder for review. . Allergies As of Date: 09/20/2024 (No Known Allergies) Date Reviewed: 05/30/2024 Reviewed by: Saritha Keith MA - Fully Assessed Reason for Visit: Results [95] Cmt: Lab results from [facility] Prescriptions as of 09/21/2024 - etodolac (LODINE) [...] Encounter Status:Closed by SUSY ESCAMILLA on 09/21/24 Normal [facility] Complete Blood Count Auto Di ffon 09-20-2024 Basophils (Bld) [#/Vol] 0.0 10*3/uL Normal 0.0-0.2 The Counts Include 234 Beds At The [facility] Comment on above: Order Comment: FASTDamien SANTOS.JKW Performed By: #### A ST, ALT, CRP, CBC, ESR #### [facility] [address] Basophils/100 WBC (Bld) 0.6 % Normal . T lizzy Counts Include 234 Beds At The [facility] Comment on above: Order Comment: FASTI NG.JKW Performed By: #### A ST, ALT, CRP, CBC, ESR #### [facility] [address] Eosinophils (Bld) [#/Vol] 0.1 10*3/uL Normal 0.0-0.45 The Counts Include 234 Beds At The [facility] Comment on above: Order Comment: FASTI NG.JKW Performed By: #### A ST, ALT, CRP, CBC, ESR #### [facility] [address] [place] [id number] [place] Eosinophils/100 WBC (Bld) 1.2 % Normal . The Counts Include 234 Beds At The [facility] Comment on above: Order Comment: FASTI NG.JKW Performed By: #### A ST, ALT, CRP, CBC, ESR #### [facility] [address] Erythrocyte distribution width (RBC) [Ratio] 13.0 % Normal 11.9-15.3 The Counts Include 234 Beds At The [facility] Comment on above: Order Comment: FASTI NG.JKW Performed By: #### A ST, ALT, CRP, CBC, ESR #### [address] Hematocrit (Bld) [Volume fraction] 35.8 % Normal 34.0-46.4 The Counts Include 234 Beds At The [facility] Comment on above: Order Comment: FASTI NG.JKW Performed By: #### A ST, ALT, CRP, CBC, ESR #### [address] Hemoglobin (Bld) [Mass/Vol] 12.0 g/dL Normal 11.8-15.4 The Counts Include 234 Beds At The [facility] Comment on above: Order Comment: FASTI NG.JKW Performed By: #### A ST, ALT, CRP, CBC, ESR #### [address] Lymphocytes (Bld) [#/Vol] 2.1 10*3/uL Normal 1.00-4.8 The Counts Include 234 Beds At The [facility] Comment on above: Order Comment: FASTI NG.JKW Performed By: #### A ST, ALT, CRP, CBC, ESR #### [address] Lymphocytes/100 WBC (Bld) 28.4 % Normal . The Counts Include 234 Beds At The [facility] Comment on above: Order Comment: FASTI NG.JKW Performed By: #### A ST, ALT, CRP, CBC, ESR #### [address] MCH (RBC) [Entitic mass] 30.4 pg Normal 24.7-34.3 The Counts Include 234 Beds At The [facility] Comment on above: Order Comment: FASTI NG.JKW Performed By: #### A ST, ALT, CRP, CBC, ESR #### [address] MCV (RBC) [Entitic vol] 90.8 fL Normal 80-100 T he Counts Include 234 Beds At The [facility] Comment on above: Order Comment: FASTI NG.JKW Performed By: #### A ST, ALT, CRP, CBC, ESR #### [address] Mean Corpuscular HGB Conc 33.5 g/dL Normal 32.0-35.0 The Counts Include 234 Beds At The [facility] Comment on above: Order Comment: FASTI NG.JKW Performed By: #### A ST, ALT, CRP, CBC, ESR #### [address] Monocytes (Bld) [#/Vol] 1.0 10*3/uL High 0.0-0.8 The Counts Include 234 Beds At The [facility] Comment on above: Order Comment: FASTI NG.JKW Performed By: #### A ST, ALT, CRP, CBC, ESR #### [address] Monocytes/100 WBC (Bld) 13.1 % Normal . T he Counts Include 234 Beds At The [facility] Comment on above: Order Comment: FASTI NG.JKW Performed By: #### A ST, ALT, CRP, CBC, ESR #### [address] Neutrophils (Bld) [#/Vol] 4.3 10*3/uL Normal 1.8-7.7 The Counts Include 234 Beds At The [facility] Comment on above: Order Comment: FASTI NG.JKW Performed By: #### A ST, ALT, CRP, CBC, ESR #### [address] Neutrophils/100 WBC (Bld) 56.7 % Normal . The Counts Include 234 Beds At The [facility] Comment on above: Order Comment: FASTI NG.JKW Performed By: #### A ST, ALT, CRP, CBC, ESR #### [address] NRBC% 0.0 /100{WBC} Normal 0-0.5 [facility] Comment on above: Order Comment: FASTI NG.JKW Performed By: #### A ST, ALT, CRP, CBC, ESR #### [address] Platelet mean volume (Bld) [Entitic vol] 8.5 fL Normal 6.3-10.7 [facility] Comment on above: Order Comment: FASTI NG.JKW Performed By: #### A ST, ALT, CRP, CBC, ESR #### [facility] [address] Platelets (Bld) [#/Vol] 353 10*3/uL Normal 150-450 The Counts Include 234 Beds At The [facility] Comment on above: Order Comment: FASTI NG.JKW Performed By: #### A ST, ALT, CRP, CBC, ESR #### [facility] [address] RBC (Bld) [#/Vol] 3.94 10*6/uL Normal 3.60-5.00 [facility] Comment on above: Order Comment: FASTI NG.JKW Performed By: #### A ST, ALT, CRP, CBC, ESR #### [facility] [address] WBC (Bld) [#/Vol] 7.5 10*3/uL Normal 3.8-11.6 [facility] Comment on above: Order Comment: FASTI NG.JKW Performed By: #### A ST, ALT, CRP, CBC, ESR #### [facility] [address] Eosinophils Auto (Bld) [#/Vo l]Ordered By: Zeinab Wood on 09-20-2024 Eosinophils (Bld) [#/Vol] Automated eosinophil count 0.0-0.45 [facility] Eosinophils/100 WBC Auto (Bl d)Ordered By: Zeinab Wood on 09-20-2024 Eosinophils/100 WBC (Bld) Automated eosinophil % . [facility] Erythrocyte Sedimentation Ra gabriel 09-20-2024 ESR (Bld) [Velocity] 9 mm/h Normal 0-19 The Counts Include 234 Beds At The [facility] Comment on above: Order Comment: FASTI [email or web address].JKW Result Comment: PERF ORMED BY: [place] [address] PATHOLOGIST SURGICAL INSTRUMENT TECHNICIAN PAKO RAMACHANDRAN M.D. Performed By: #### A ST, ALT, CRP, CBC, ESR #### [facility] [address] Erythrocyte distribution wid th Auto (RBC) [Ratio]Ordered By: Zeinab Wood on 09-20-2024 Erythrocyte distribution width (RBC) [Ratio] Erythrocyte distribution width [Ratio] by Automated count 11.9-15.3 [facility] Erythrocyte sedimentation ra te by Photometric methodOrdered By: Zeinab Wood on 09-20-2024 ESR Photometric method (Bld) [Velocity] Erythrocyte sedimentation rate by Photometric method 0-19 [facility] Hematocrit Auto (Bld) [Volum e fraction]Ordered By: Zeinab Wood on 09-20-2024 Hematocrit (Bld) [Volume fraction] Hematocrit [Volume Fraction] of Blood by Automated count 34.0-46.4 [facility] Hemoglobin [Mass/volume] in BloodOrdered By: Zeinab Wood on 09-20-2024 Hemoglobin (Bld) [Mass/Vol] Hemoglobin [Mass/volume] in Blood 11.8-15.4 [facility] Leukocytes [#/volume] correc jana for nucleated erythrocytes in Blood by Automated counOrdered By: Zeinab Wood on 09-20-2024 WBC corrected for nucl RBC Auto (Bld) [#/Vol] Leukocytes [#/volume] corrected for nucleated erythrocytes in Blood by Automated coun 3.8-11.6 [facility] Lymphocytes Auto (Bld) [#/Vo l]Ordered By: Zeinab Wood on 09-20-2024 Lymphocytes (Bld) [#/Vol] Lymphocytes [#/volume] in Blood by Automated count 1.00-4.8 [facility] Lymphocytes/100 WBC Auto (Bl d)Ordered By: Zeinab Wood on 09-20-2024 Lymphocytes/100 WBC (Bld) Lymphocytes/100 leukocytes in Blood by Automated count . [facility] MCH Auto (RBC) [Entitic mass ]Ordered By: Zeinab Wood on 09-20-2024 MCH (RBC) [Entitic mass] MCH [Entitic mass] by Automated count 24.7-34.3 [facility] MCHC Auto (RBC) [Mass/Vol]Or dered By: Zeinab Wood on 09-20-2024 MCHC (RBC) [Mass/Vol] MCHC [Mass/volume] by Automated count 32.0-35.0 [facility] MCV Auto (RBC) [Entitic vol] Ordered By: Zeinab Wood on 09-20-2024 MCV (RBC) [Entitic vol] MCV [Entitic vol ume] by Automated count 80-100 [facility] Monocytes Auto (Bld) [#/Vol] Ordered By: Zeinab Wood on 09-20-2024 Monocytes (Bld) [#/Vol] Automated blood monocyte count High 0.0-0.8 [facility] Monocytes/100 WBC Auto (Bld) Ordered By: Zeinab Wood on 09-20-2024 Monocytes/100 WBC (Bld) Automated monocyte % . [facility] Neutrophils Auto (Bld) [#/Vo l]Ordered By: Zeinab Wood on 09-20-2024 Neutrophils (Bld) [#/Vol] Neutrophils [#/volume] in Blood by Automated count 1.8-7.7 [facility] Neutrophils/100 WBC Auto (Bl d)Ordered By: Zeinab Wood on 09-20-2024 Neutrophils/100 WBC (Bld) Automated neutrophil % . [facility] Nucleated erythrocytes [Pres ence] in Blood by Automated countOrdered By: Zeinab Wood on 09-20-2024 Nucleated RBC Auto Ql (Bld) Nucleated erythrocytes [Presence] in Blood by Automated count 0-0.5 [facility] Platelet mean volume Auto (B ld) [Entitic vol]Ordered By: Zeinab Wood on 09-20-2024 Platelet mean volume (Bld) [Entitic vol] Platelet mean volume [Entitic volume] in Blood by Automated count 6.3-10.7 [facility] Platelets Auto (Bld) [#/Vol] Ordered By: Zeinab Wood on 09-20-2024 Platelets (Bld) [#/Vol] Platelets [#/vol ume] in Blood by Automated count 150-450 [facility] RBC Auto (Bld) [#/Vol]Ordere d By: Zeinab Wood on 09-20-2024 RBC (Bld) [#/Vol] Erythrocytes [#/volume] in Blood by Automated count 3.60-5.00 [facility] WBC Auto (Bld) [#/Vol]Ordere d By: Zeinab Wood on 09-20-2024 WBC (Bld) [#/Vol] Leukocytes [#/volume ] in Blood by Automated count 3.8-11.6 [facility] MM screening mammo BI w/CADo n 09-16-2024 MM screening mammo BI w/CAD [facility] [place] [address] [place] [address] Mammography Report Signed Patient: Kourtney Novak MR#: [id number] : 1975 Acct:[id number] Age/Sex: 48 / F ADM Date: 09/16/24 Loc: [place] Room: Type: [facility] Attending Dr: Referral Self Copies to: Sammie Gonzalez MD SELF,REFERRAL Ordering Provider: SELF,REFERRAL Date of [...] Lincoln Hoffmann M.D.09/16/2024 2:40 PM Dictation Location: DWS01 Transcribed By: GRACIE 09/16/24 1440 Dictated By: Lincoln Hoffmann MD 09/16/24 1437 Signed By: 09/16/24 1440 Normal The Counts Include 234 Beds At The [facility] Mammography reportOrdered By : Lincoln Hoffmann on 09-16-2024 Diagnostic imaging study [facility] [place] [address] Mammography Report Signed Patient: Kourtney Novak MR#: [id number] : 1975 Acct:[id number] Age/Sex: 48 / F ADM Date: 5 Loc: [place] Room: Type: [facility] Attending Dr: Referral Self Copies to: Sammie Gonzalez MD SELF,REFERRAL ~ Ordering Provider: SELF,REFERRAL Date of Service: 09/16/24 [...] Lincoln Hoffmann M.D.09/16/2024 2:40 PM Dictation Location: DWS01 Transcribed By: GRACIE 09/16/24 1440 Dictated By: Lincoln Hoffmann MD 09/16/24 143 Signed By: 09/16/241439 [facility] Work Phone: Thyrotropin [Units/volume] i n Serum or PlasmaOrdered By: Sammie Gonzalez on 06-22-2024 TSH Qn 2.24 m[IU]/L Normal 0.45-5.33 [facility] Comment on above: Order Comment: PIPER ROBLERO Result Comment: PERF ORMED BY: [facility] [address] [place] [address] PATHOLOGIST SURGICAL INSTRUMENT TECHNICIAN MONIK SILVESTRE M.D. Performed By: #### T 3F, T4T, TSH3 ####[address] [address] [facility] Thyroxine (T4) [Mass/volume] in Serum or PlasmaOrdered By: Sammie Gonzalez on 06-22-2024 T4 [Mass/Vol] 11.23 ug/dL Normal 5.39-11.82 [facility] Comment on above: Order Comment: PIPER ROBLERO Performed By: #### T 3F, T4T, TSH3 ####[address] [address] [facility] Triiodothyronine (T3) Freeon 06-22-2024 Triiodothyronine (T3) Free 2.96 pg/mL Normal 2.50-3.90 The Counts Include 234 Beds At The [facility] Comment on above: Order Comment: PIPER ROBLERO Result Comment: PERF ORMED BY: [facility] [address] [place] [address] PATHOLOGIST SURGICAL INSTRUMENT TECHNICIAN MONIK SILVESTRE M.D. Performed By: #### T 3F, T4T, TSH3 ####[address] [address] [place] Triiodothyronine (T3) Free [ Mass/volume] in Serum or PlasmaOrdered By: Sammie Gonzalez on 06-22-2024 Free T3 [Mass/Vol] 2.96 pg/mL 2.50-3.90 [facility] CNOVon 05-30-2024 CNOV Office Visit (RHEUAV ) KOURTNEY NOVAK ([id number]) 1975 F Date Time Provider Department 05/30/24 [...] are p (more content not included)... Normal [facility] A1C with Estimated Average G veronican 05-12-2024 Glucose [Mass/Vol] 114 mg/dL Normal [facility] Comment on above: Order Comment: PIPER SANTOS. OgKW Result Comment: PERF ORMED BY: [place] [address] PATHOLOGIST SURGICAL INSTRUMENT TECHNICIAN MONIK SILVESTRE M.D. Performed By: #### T SH3, [id number], DIFF CBC, T3F, A1C WTH eA, CMP, FE, LIPID, [id number], T4T #### [address] #### INSULIN #### [facility] , Alanine aminotransferase [En zymatic activity/volume] in Serum or PlasmaOrdered By: Sammie Gonzalez on 05-12-2024 ALT [Catalytic activity/Vol] 17 U/L Normal 7-52 [facility] Comment on above: Order Comment: PIPER SANTOS. OgKW Performed By: #### T SH3, [id number], DIFF CBC, T3F, A1C WTH eA, CMP, FE, LIPID, [id number], T4T ####[place] [id number] [address]#### INSULIN ####[facility] , Albumin [Mass/volume] in Ser um or Plasma by Bromocresol green (BCG) dye binding methoOrdered By: Sammie Gonzalez on 05-12-2024 Albumin BCG dye [Mass/Vol] 4.1 g/dL 3.5-5.7 [facility] Alkaline phosphatase [Enzyma tic activity/volume] in Serum or PlasmaOrdered By: Sammie Gonzalez on 05-12-2024 ALP [Catalytic activity/Vol] 42 U/L Normal 34-104 [facility] Comment on above: Order Comment: FASTI NG. JKW Performed By: #### T SH3, [id number], DIFF CBC, T3F, A1C WTH eA, CMP, FE, LIPID, [id number], T4T ####[address]#### INSULIN ####[facility] , Anisocytosis [Presence] in B lood by Light microscopyOrdered By: Sammie Gonzalez on 05-12-2024 Anisocytosis Ql (Bld) Slight Normal [facility] Comment on above: Order Comment: FASTI NG. JKW Performed By: #### T SH3, [id number], DIFF CBC, T3F, A1C WTH eA, CMP, FE, LIPID, [id number], T4T ####[address]#### INSULIN ####[facility] , Aspartate aminotransferase [ Enzymatic activity/volume] in Serum or PlasmaOrdered By: Sammie Gonzalez on 05-12-2024 AST [Catalytic activity/Vol] 11 U/L Low 13-39 [facility] Comment on above: Order Comment: FASTI NG. JKW Performed By: #### T SH3, [id number], DIFF CBC, T3F, A1C WTH eA, CMP, FE, LIPID, [id number], T4T ####[place] [address] [place] [id number] [facility]#### INSULIN ####[facility] , Basophils Auto (Bld) [#/Vol] Ordered By: Sammie Gonzalez on 05-12-2024 Basophils (Bld) [#/Vol] N/A [facility] Basophils/100 WBC Auto (Bld) Ordered By: Sammie Gonzalez on 05-12-2024 Basophils/100 WBC (Bld) N/A [facility] Basophils/100 leukocytes in Blood by Manual countOrdered By: Sammie Gonzalez on 05-12-2024 Basophils/100 WBC (Bld) 1 % Normal 0-2 [facility] Comment on above: Order Comment: FASTI NG. JKW Performed By: #### T SH3, [id number], DIFF CBC, T3F, A1C WTH eA, CMP, FE, LIPID, [id number], T4T ####[address]#### INSULIN ####[facility] , Bilirubin.total [Mass/volume ] in Serum or PlasmaOrdered By: Sammie Gonzalez on 05-12-2024 Bilirubin [Mass/Vol] 0.4 mg/dL Normal 0.3-1.0 [facility] Comment on above: Order Comment: FASTI NG. JKW Performed By: #### T SH3, [id number], DIFF CBC, T3F, A1C WTH eA, CMP, FE, LIPID, [id number], T4T ####[address]#### INSULIN ####[facility] , Calcium [Mass/volume] in Ser um or PlasmaOrdered By: Sammie Gonzalez on 05-12-2024 Calcium [Mass/Vol] 9.4 mg/dL Normal 8.6-10.3 [facility] Comment on above: Order Comment: FASTI NG. JKW Performed By: #### T SH3, [id number], DIFF CBC, T3F, A1C WTH eA, CMP, FE, LIPID, [id number], T4T ####[address]#### INSULIN ####[facility] , Carbon dioxide, total [Moles /volume] in Serum or PlasmaOrdered By: Sammie Gonzalez on 05-12-2024 CO2 [Moles/Vol] 27.0 mmol/L Normal 21.0-31.0 [facility] Comment on above: Order Comment: FASTI NG. JKW Performed By: #### T SH3, [id number], DIFF CBC, T3F, A1C WTH eA, CMP, FE, LIPID, [id number], T4T ####[address]#### INSULIN ####[facility] , Chloride [Moles/volume] in S micki or PlasmaOrdered By: Sammie Gonzalez on 05-12-2024 Chloride [Moles/Vol] 101 mmol/L Normal 98-107 [facility] Comment on above: Order Comment: FASTI NG. JKW Performed By: #### T SH3, [id number], DIFF CBC, T3F, A1C WTH eA, CMP, FE, LIPID, [id number], T4T ####[address]#### INSULIN ####[facility] , Cholesterol [Mass/volume] in Serum or PlasmaOrdered By: Sammie Gonzalez on 05-12-2024 Cholesterol [Mass/Vol] 191 mg/dL Normal 140-200 [facility] Comment on above: Chol less than 200 m g/dl low riskChol 201-239 mg/dl borderline riskChol 240 mg/dl and greater high risk Order Comment: FASTI NG. JKW Result Comment: Chol less than 200 mg/dl low risk Chol 201-239 mg/dl borderline risk Chol 240 mg/dl and greater high risk Performed By: #### T SH3, [id number], DIFF CBC, T3F, A1C WTH eA, CMP, FE, LIPID, [id number], T4T ####[facility] [address]#### INSULIN ####[facility] , Cholesterol in LDL Calc [Mas s/Vol]Ordered By: Sammie Gonzalez on 05-12-2024 Cholesterol in LDL [Mass/Vol] 76 mg/dL 0-100 [facility] Comment on above: LDL ATP III CLASSIFI CATIONLDL less than 100 mg/dL OptimalLDL 100-129 mg/dL Near or above optimalLDL 130-159 mg/dL Borderline highLDL 160-189 mg/dL HighLDL greater than 189 mg/dL Very high Cholesterol in VLDL Calc [Ma ss/Vol]Ordered By: Sammie Gonzalez on 05-12-2024 Cholesterol in VLDL [Mass/Vol] 29 mg/dL [facility] Comprehensive Metabolic Pane costa 05-12-2024 Albumin [Mass/Vol] 4.1 g/dL Normal 3.5-5.7 [facility] Comment on above: Order Comment: FASTI NG. JKW Performed By: #### T SH3, [id number], DIFF CBC, T3F, A1C WTH eA, CMP, FE, LIPID, [id number], T4T ####[place] [address] [address]#### INSULIN ####[facility] , GFR/1.73 sq M.predicted MDRD (S/P/Bld) [Vol rate/Area] mL/min/{1.73_m2} Normal The Counts Include 234 Beds At The [facility] Comment on above: Order Comment: FASTI NG. JKW Performed By: #### T SH3, [id number], DIFF CBC, T3F, A1C WTH eA, CMP, FE, LIPID, [id number], T4T ####[place] [address] [address]#### INSULIN ####[facility] , Creatinine [Mass/volume] in Serum or PlasmaOrdered By: Sammie Gonzalez on 05-12-2024 Creatinine [Mass/Vol] 1.05 mg/dL Normal 0.60-1.20 [facility] Comment on above: Order Comment: FASTI NG. JKW Performed By: #### T SH3, [id number], DIFF CBC, T3F, A1C WTH eA, CMP, FE, LIPID, [id number], T4T ####[address]#### INSULIN ####[facility] , Diff and CBCon 05-12-2024 Mean Corpuscular HGB Conc 33.0 g/dL Normal 32.0-35.0 The Counts Include 234 Beds At The [facility] Comment on above: Order Comment: FASTI NG. JKW Performed By: #### T SH3, [id number], DIFF CBC, T3F, A1C WTH eA, CMP, FE, LIPID, [id number], T4T ####[address]#### INSULIN ####[facility] , Metamyelocytes 2 % High 0-0 [facility] Comment on above: Order Comment: FASTI NG. JKW Performed By: #### T SH3, [id number], DIFF CBC, T3F, A1C WTH eA, CMP, FE, LIPID, [id number], T4T ####[address]#### INSULIN ####[facility] , Microcytosis Slight Normal [facility] Comment on above: Order Comment: FASTI NG. JKW Performed By: #### T SH3, [id number], DIFF CBC, T3F, A1C WTH eA, CMP, FE, LIPID, [id number], T4T ####[address]#### INSULIN ####[facility] , Platelet Estimate Normal Normal Normal [facility] Comment on above: Order Comment: FASTI NG. JKW Performed By: #### T SH3, [id number], DIFF CBC, T3F, A1C WTH eA, CMP, FE, LIPID, [id number], T4T ####[place] [address] [address]#### INSULIN ####[facility] , Platelet Morphology Normal Normal Normal [facility] Comment on above: Order Comment: FASTI DANIELLE. JKW Result Comment: PERF ORMED BY: [facility] [address] [place] [address] PATHOLOGIST SURGICAL INSTRUMENT TECHNICIAN MONIK SILVESTRE M.D. Performed By: #### T SH3, [id number], DIFF CBC, T3F, A1C WTH eA, CMP, FE, LIPID, [id number], T4T ####[address]#### INSULIN ####[facility] , Eosinophils Auto (Bld) [#/Vo l]Ordered By: Sammie Gonzalez on 05-12-2024 Eosinophils (Bld) [#/Vol] N/A [facility] Eosinophils/100 WBC Auto (Bl d)Ordered By: Sammie Gonzalez on 05-12-2024 Eosinophils/100 WBC (Bld) N/A [facility] Eosinophils/100 leukocytes i n Blood by Manual countOrdered By: Sammie Gonzalez on 05-12-2024 Eosinophils/100 WBC (Bld) 2 % Normal 1-3 [facility] Comment on above: Order Comment: FASTI NG. JKW Performed By: #### T SH3, [id number], DIFF CBC, T3F, A1C WTH eA, CMP, FE, LIPID, [id number], T4T ####[address]#### INSULIN ####[facility] , Erythrocyte distribution wid th [Ratio] by Automated countOrdered By: Sammie Gonzalez on 05-12-2024 Erythrocyte distribution width (RBC) [Ratio] 13.9 % Normal 11.9-15.3 [facility] Comment on above: Order Comment: FASTI NG. JKW Performed By: #### T SH3, [id number], DIFF CBC, T3F, A1C WTH eA, CMP, FE, LIPID, [id number], T4T ####[facility] [id number] [address]#### INSULIN ####[facility] , Erythrocytes [#/volume] in B lood by Automated countOrdered By: Sammie Gonzalez on 05-12-2024 RBC (Bld) [#/Vol] 4.30 10*6/uL Normal 3.60-5.00 [facility] Comment on above: Order Comment: FASTI NG. JKW Performed By: #### T SH3, [id number], DIFF CBC, T3F, A1C WTH eA, CMP, FE, LIPID, [id number], T4T ####[facility] [id number] [address]#### INSULIN ####[facility] , Folate [Mass/volume] in Seru m or PlasmaOrdered By: Sammie Gonzalez on 05-12-2024 Folate [Mass/Vol] 7.8 ng/mL >5.9 [facility] Comment on above: Folate reference ran ge: >5.9 ng/mlThe WHO technical consultation on folate and vitamin [id number] has determined that folate concentrations lessthan 4 ng/ml are considered deficient. Glucose [Mass/volume] in Ser um or PlasmaOrdered By: Sammie Gonzalez on 05-12-2024 Glucose [Mass/Vol] 111 mg/dL High 70-100 [facility] Comment on above: ADA recommended refe rence rangeRandom Glucose Reference Range is dependent on time and content of last meal. Glucose of more than 200 mg/dL in a nonstressed, ambulatory subject supports the diagnosis of Diabetes Mellitus. Order Comment: FASTI NG. JKW Result Comment: [place] om Glucose Reference Range is dependent on time and content of last meal. Glucose of more than 200 mg/dL in a nonstressed, ambulatory subject supports the diagnosis of Diabetes Mellitus. ADA recommended reference range Performed By: #### T SH3, [id number], DIFF CBC, T3F, A1C WTH eA, CMP, FE, LIPID, [id number], T4T ####[facility]#### INSULIN ####[facility] , Glucose mean value [Mass/vol ume] in Blood Estimated from glycated hemoglobinOrdered By: Sammie Gonzalez on 05-12-2024 Average glucose Estimated from glycated hemoglobin (Bld) [Mass/Vol] 114 mg/dL [facility] Hematocrit [Volume Fraction] of Blood by Automated countOrdered By: Sammie Gonzalez on 05-12-2024 Hematocrit (Bld) [Volume fraction] 39.1 % Normal 34.0-46.4 [facility] Comment on above: Order Comment: PIPER STEWARTW Performed By: #### T SH3, [id number], DIFF CBC, T3F, A1C WTH eA, CMP, FE, LIPID, [id number], T4T ####[address]#### INSULIN ####[facility] , Hemoglobin A1c percentageOrd ered By: Sammie Gonzalez on 05-12-2024 HbA1c (Bld) [Mass fraction] 5.6 % Normal 4.3-5.6 [facility] Comment on above: Increased risk for d iabetes: 5.7 - 6.4diabetes: >6.4glycemic control for adults with diabetes: <7.0 Order Comment: PIPER FoleyKW Result Comment: Incr eased risk for diabetes: 5.7 - 6.4 diabetes: >6.4 glycemic control for adults with diabetes: <7.0 Performed By: #### T SH3, [id number], DIFF CBC, T3F, A1C WTH eA, CMP, FE, LIPID, [id number], T4T #### [facility] [facility] [address] #### INSULIN #### [facility] , Hemoglobin [Mass/volume] in BloodOrdered By: Sammie Gonzalez on 05-12-2024 Hemoglobin (Bld) [Mass/Vol] 12.9 g/dL Normal 11.8-15.4 [facility] Comment on above: Order Comment: FASTI NG. JKW Performed By: #### T SH3, [id number], DIFF CBC, T3F, A1C WTH eA, CMP, FE, LIPID, [id number], T4T ####[place] [id number] [address]#### INSULIN ####[facility] , Insulinon 05-12-2024 Insulin 38.1 u[iU]/mL High 2.6-24.9 [facility] Comment on above: Order Comment: FASTI NG. JKW Result Comment: Perf ormed at: - [facility] [address] [id number] Lining Inserter: Maxim Daniel PhD, Phone: [phone] PERFORMED BY: [facility] [address] [place] [address] PATHOLOGIST SURGICAL INSTRUMENT TECHNICIAN MONIK SILVESTRE M.D. Performed By: #### T SH3, [id number], DIFF CBC, T3F, A1C WTH eA, CMP, FE, LIPID, [id number], T4T ####[address]#### INSULIN ####[facility] , Iron [Mass/volume] in Serum or PlasmaOrdered By: Sammie Gonzalez on 05-12-2024 Iron [Mass/Vol] 80 ug/dL Normal 50-212 [facility] Comment on above: Order Comment: FASTI NG. JKW Performed By: #### T SH3, [id number], DIFF CBC, T3F, A1C WTH eA, CMP, FE, LIPID, [id number], T4T ####[address]#### INSULIN ####[facility] , Leukocytes [#/volume] correc jana for nucleated erythrocytes in Blood by Automated counOrdered By: Sammie Gonzalez on 05-12-2024 WBC corrected for nucl RBC Auto (Bld) [#/Vol] 11.8 10*3/uL High 3.8-11.6 [facility] Leukocytes [#/volume] in Blo od by Automated countOrdered By: Sammie Gonzalez on 05-12-2024 WBC (Bld) [#/Vol] 11.8 10*3/uL High 3.8-11.6 [facility] Comment on above: Order Comment: FASTI NG. JKW Performed By: #### T SH3, [id number], DIFF CBC, T3F, A1C WTH eA, CMP, FE, LIPID, [id number], T4T ####[facility]#### INSULIN ####[facility] , Lipid Panelon 05-12-2024 LDL Cholesterol,Calculated 76 mg/dL Normal 0-100 [facility] Comment on above: Order Comment: FASTI NG. JKW Result Comment: LDL ATP III CLASSIFICATION LDL less than 100 mg/dL Optimal LDL 100-129 mg/dL Near or above optimal LDL 130-159 mg/dL Borderline high LDL 160-189 mg/dL High LDL greater than 189 mg/dL Very high Performed By: #### T SH3, [id number], DIFF CBC, T3F, A1C WTH eA, CMP, FE, LIPID, [id number], T4T ####[place] [id number] [address]#### INSULIN ####[facility] , Triglyceride w/Reflex 146 mg/dL Normal 0-149 The Counts Include 234 Beds At [facility] Comment on above: Order Comment: FASTI NG. JKW Result Comment: TRIG ATP III CLASSIFICATION TRIG less than 150 mg/dL Normal TRIG 150-199 mg/dL Borderline high TRIG 200-500 mg/dL High TRIG greater than 500 mg/dL Very high Standard traceable to the Center for Disease Conrtrol and Prevention (CDC) test method. Performed By: #### T SH3, [id number], DIFF CBC, T3F, A1C WTH eA, CMP, FE, LIPID, [id number], T4T ####[place] [id number] [address]#### INSULIN ####[facility] , VLDL CHOLESTEROL 29 mg/dL Normal [facility] Comment on above: Order Comment: FASTI NG. JKW Performed By: #### T SH3, [id number], DIFF CBC, T3F, A1C WTH eA, CMP, FE, LIPID, [id number], T4T ####[address]#### INSULIN ####[facility] , Lymphocytes Auto (Bld) [#/Vo l]Ordered By: Sammie Gonzalez on 05-12-2024 Lymphocytes (Bld) [#/Vol] N/A [facility] Lymphocytes/100 WBC Auto (Bl d)Ordered By: Sammie Gonzalez on 05-12-2024 Lymphocytes/100 WBC (Bld) N/A [facility] Lymphocytes/100 leukocytes i n Blood by Manual countOrdered By: Sammie Gonzalez on 05-12-2024 Lymphocytes/100 WBC (Bld) 28 % Normal 18-42 [facility] Comment on above: Order Comment: FASTI NG. JKW Performed By: #### T SH3, [id number], DIFF CBC, T3F, A1C WTH eA, CMP, FE, LIPID, [id number], T4T ####[address]#### INSULIN ####[facility] , MCH [Entitic mass] by Automa jana countOrdered By: Sammie Gonzalez on 05-12-2024 MCH (RBC) [Entitic mass] 29.9 pg Normal 24.7-34.3 [facility] Comment on above: Order Comment: FASTI NG. JKW Performed By: #### T SH3, [id number], DIFF CBC, T3F, A1C WTH eA, CMP, FE, LIPID, [id number], T4T ####[address] [place] [address] [place]#### INSULIN ####[facility] , MCHC Auto (RBC) [Mass/Vol]Or dered By: Sammie Gonzalez on 05-12-2024 MCHC (RBC) [Mass/Vol] 33.0 g/dL 32.0-35.0 [facility] MCV [Entitic volume] by Auto mated countOrdered By: Sammie Gonzalez on 05-12-2024 MCV (RBC) [Entitic vol] 90.8 fL Normal 80-100 [facility] Comment on above: Order Comment: FASTI NG. JKW Performed By: #### T SH3, [id number], DIFF CBC, T3F, A1C WTH eA, CMP, FE, LIPID, [id number], T4T ####[address]#### INSULIN ####[facility] , Manual blood segmented neutr ophils/100 leukocytesOrdered By: Sammie Gonzalez on 05-12-2024 Segmented neutrophils/100 WBC (Bld) 54 % Normal 50-70 [facility] Comment on above: Order Comment: FASTI NG. JKW Performed By: #### T SH3, [id number], DIFF CBC, T3F, A1C WTH eA, CMP, FE, LIPID, [id number], T4T ####[address]#### INSULIN ####[facility] , Metamyelocytes/100 WBC Manua l cnt (Bld)Ordered By: Sammie Gonzalez on 05-12-2024 Metamyelocytes/100 WBC (Bld) 2 % High 0-0 [facility] Microcytes LM Ql (Bld)Ordere d By: Sammie Gonzalez on 05-12-2024 Microcytes Ql (Bld) Slight [facility] Monocytes Auto (Bld) [#/Vol] Ordered By: Sammie Gonzalez on 05-12-2024 Monocytes (Bld) [#/Vol] N/A [facility] Monocytes/100 WBC Auto (Bld) Ordered By: Sammie Gonzalez on 05-12-2024 Monocytes/100 WBC (Bld) N/A [facility] Monocytes/100 leukocytes in Blood by Manual countOrdered By: Sammie Gonzalez on 05-12-2024 Monocytes/100 WBC (Bld) 12 % High 2-11 [facility] Comment on above: Order Comment: FASTI NG. JKW Performed By: #### T SH3, [id number], DIFF CBC, T3F, A1C WTH eA, CMP, FE, LIPID, [id number], T4T ####[facility] [id number] [address]#### INSULIN ####[facility] , Neutrophils Auto (Bld) [#/Vo l]Ordered By: Sammie Gonzalez on 05-12-2024 Neutrophils (Bld) [#/Vol] N/A [facility] Neutrophils/100 WBC Auto (Bl d)Ordered By: Sammie Gonzalez on 05-12-2024 Neutrophils/100 WBC (Bld) N/A [facility] No Panel InformationOrdered By: Sammie Gonzalez on 05-12-2024 Estimated GFR (CKD-EPI) > 60.0 mL/Min [facility] Creatinine Clearance (Chem N/A [facility] Nucleated erythrocytes [Pres ence] in Blood by Automated countOrdered By: Sammie Gonzalez on 05-12-2024 Nucleated RBC Auto Ql (Bld) N/A [facility] Peripheral white blood cell differential % bands, microscopic examOrdered By: Sammie Gonzalez on 05-12-2024 Band form neutrophils/100 WBC (Bld) 1 % Normal 0-5 [facility] Comment on above: Order Comment: FASTI NG. JKW Performed By: #### T SH3, [id number], DIFF CBC, T3F, A1C WTH eA, CMP, FE, LIPID, [id number], T4T ####[facility] [address] [place] [address] [facility]#### INSULIN ####[facility] , Platelet adequacy [Presence] in Blood by Light microscopyOrdered By: Sammie Gonzalez on 05-12-2024 Platelets LM Ql (Bld) Normal Normal [facility] Platelet mean volume [Entiti c volume] in Blood by Automated countOrdered By: Sammie Gonzalez on 05-12-2024 Platelet mean volume (Bld) [Entitic vol] 8.1 fL Normal 6.3-10.7 [facility] Comment on above: Order Comment: FASTI DANIELLE. JKW Performed By: #### T SH3, [id number], DIFF CBC, T3F, A1C WTH eA, CMP, FE, LIPID, [id number], T4T ####[place] [id number] [address]#### INSULIN ####[facility] , Platelet morphology finding [Identifier] in BloodOrdered By: Sammie Gonzalez on 05-12-2024 Platelet morphology finding Nom (Bld) Normal Normal [facility] Platelets [#/volume] in Bloo d by Automated countOrdered By: Sammie Gonzalez on 05-12-2024 Platelets (Bld) [#/Vol] 392 10*3/uL Normal 150-450 [facility] Comment on above: Order Comment: FASTI NG. JKW Performed By: #### T SH3, [id number], DIFF CBC, T3F, A1C WTH eA, CMP, FE, LIPID, [id number], T4T ####[place] [address] [place] [address] [place]#### INSULIN ####[facility] , Potassium [Moles/volume] in Serum or PlasmaOrdered By: Sammie Gonzalez on 05-12-2024 Potassium [Moles/Vol] 4.1 mmol/L Normal 3.5-5.1 [facility] Comment on above: Order Comment: FASTI NG. JKW Performed By: #### T SH3, [id number], DIFF CBC, T3F, A1C WTH eA, CMP, FE, LIPID, [id number], T4T ####[facility] [place] [id number] [place]#### INSULIN ####[facility] , Protein [Mass/volume] in Ser um or PlasmaOrdered By: Sammie Gonzalez on 05-12-2024 Protein [Mass/Vol] 6.1 g/dL Low 6.4-8.9 [facility] Comment on above: Order Comment: FASTI NG. JKW Performed By: #### T SH3, [id number], DIFF CBC, T3F, A1C WTH eA, CMP, FE, LIPID, [id number], T4T ####[facility] [id number]#### INSULIN ####[facility] , RBC morphologyOrdered By: Do erik Gonzalez on 05-12-2024 RBC morphology finding Nom (Bld) N/A [facility] Serum globulin measurement b y calculation (mass/volume)Ordered By: Sammie Gonzalez on 05-12-2024 Globulin (S) [Mass/Vol] 2.0 g/dL [facility] Comment on above: Order Comment: FASTI NG. JKW Performed By: #### T SH3, [id number], DIFF CBC, T3F, A1C WTH eA, CMP, FE, LIPID, [id number], T4T ####[facility]#### INSULIN ####[facility] , Serum or plasma albumin/glob ulin mass ratioOrdered By: Sammie Gonzalez on 05-12-2024 Albumin/Globulin [Mass ratio] 2.1 {ratio} Normal [facility] Comment on above: Order Comment: FASTI NG. JKW Performed By: #### T SH3, [id number], DIFF CBC, T3F, A1C WTH eA, CMP, FE, LIPID, [id number], T4T ####[facility]#### INSULIN ####[facility] , Serum or plasma anion gap de terminationOrdered By: Sammie Gonzalez on 05-12-2024 Anion gap [Moles/Vol] 12.1 mmol/L Normal 6.0-15.0 [facility] Comment on above: Order Comment: PIPER FoleyKW Performed By: #### T SH3, [id number], DIFF CBC, T3F, A1C WTH eA, CMP, FE, LIPID, [id number], T4T ####[facility] [id number] [address]#### INSULIN ####[facility] , Serum or plasma high density lipoprotein (HDL) cholesterol measurementOrdered By: Sammie Gonzalez on 05-12-2024 Cholesterol in HDL [Mass/Vol] 86 mg/dL Normal 23-92 [facility] Comment on above: HDL CHOL ATP-III CLA SSIFICATION Cardiovascular RiskHDL > or equal to 60 mg/dL LOWHDL < 40 mg/dL HIGH Order Comment: PIPER FoleyKW Result Comment: HDL CHOL ATP-III CLASSIFICATION Cardiovascular Risk HDL > or equal to 60 mg/dL LOW HDL < 40 mg/dL HIGH Performed By: #### T SH3, [id number], DIFF CBC, T3F, A1C WTH eA, CMP, FE, LIPID, [id number], T4T ####[facility] [id number] [address]#### INSULIN ####[facility] , Serum or plasma insulin kiara urement (units/volume)Ordered By: Sammie Gonzalez on 05-12-2024 Insulin Qn 38.1 u[iU]/mL High 2.6-24.9 [facility] Comment on above: Performed at: [address] Director: Maxim Daniel PhD, Phone: [phone] Serum or plasma total choles terol/high density lipoprotein (HDL) cholesterol mass ratOrdered By: Sammie Gonzalez on 05-12-2024 Cholesterol.total/Tali sterol in HDL [Mass ratio] 2.2 {ratio} Normal <5.0 [facility] Comment on above: Order Comment: FASTI NG. JKW Performed By: #### T SH3, [id number], DIFF CBC, T3F, A1C WTH eA, CMP, FE, LIPID, [id number], T4T ####[address]#### INSULIN ####[facility] , Sodium [Moles/volume] in Ser um or PlasmaOrdered By: Sammie Gonzalez on 05-12-2024 Sodium [Moles/Vol] 136 mmol/L Normal 136-145 [facility] Comment on above: Order Comment: FASTI NG. JKW Performed By: #### T SH3, [id number], DIFF CBC, T3F, A1C WTH eA, CMP, FE, LIPID, [id number], T4T ####[address]#### INSULIN ####[facility] , Thyrotropin [Units/volume] i n Serum or PlasmaOrdered By: Sammie Gonzalez on 05-12-2024 TSH Qn 6.32 m[IU]/L High 0.45-5.33 [facility] Comment on above: Order Comment: FASTI NG. JKW Performed By: #### T SH3, [id number], DIFF CBC, T3F, A1C WTH eA, CMP, FE, LIPID, [id number], T4T ####[place] [address] [place]#### INSULIN ####[facility] , Thyroxine (T4) [Mass/volume] in Serum or PlasmaOrdered By: Sammie Gonzalez on 05-12-2024 T4 [Mass/Vol] 11.59 ug/dL Normal 5.39-11.82 [facility] Comment on above: Order Comment: FASTI NG. JKW Performed By: #### T SH3, [id number], DIFF CBC, T3F, A1C WTH eA, CMP, FE, LIPID, [id number], T4T ####[address]#### INSULIN ####[facility] , Triglyceride [Mass/volume] i n Serum or PlasmaOrdered By: Sammie Gonzalez on 05-12-2024 Triglyceride [Mass/Vol] 146 mg/dL 0-149 [facility] Comment on above: TRIG ATP III CLASSIF ICATIONTRIG less than 150 mg/dL NormalTRIG 150-199 mg/dL Borderline highTRIG 200-500 mg/dL High TRIG greater than 500 mg/dL Very highStandard traceable to the Center for Disease Conrtrol and Prevention (CDC) test method. Triiodothyronine (T3) Freeon 05-12-2024 Triiodothyronine (T3) Free 3.61 pg/mL Normal 2.50-3.90 The Counts Include 234 Beds At [facility] Comment on above: Order Comment: PIPER FoleyKW Result Comment: PERF ORMED BY: [facility] [address] [place] [address] PATHOLOGIST SURGICAL INSTRUMENT TECHNICIAN MONIK SILVESTRE M.D. Performed By: #### T SH3, [id number], DIFF CBC, T3F, A1C WTH eA, CMP, FE, LIPID, [id number], T4T #### [facility] [address] #### INSULIN #### [facility] , Triiodothyronine (T3) Free [ Mass/volume] in Serum or PlasmaOrdered By: Sammie Gonzalez on 05-12-2024 Free T3 [Mass/Vol] 3.61 pg/mL 2.50-3.90 [facility] Urea nitrogen [Mass/volume] in Serum or PlasmaOrdered By: Sammie Gonzalez on 05-12-2024 Urea nitrogen [Mass/Vol] 20 mg/dL Normal 7-25 [facility] Comment on above: Order Comment: PIPER SANTOS. OgKW Performed By: #### T SH3, [id number], DIFF CBC, T3F, A1C WTH eA, CMP, FE, LIPID, [id number], T4T ####[facility] [address] [place] [address] [place]#### INSULIN ####[facility] , Vit. B12/Folate Profileon Folate 7.8 ng/mL Normal >5.9 The Counts Include 234 Beds At [facility] Comment on above: Order Comment: PIPER FoleyKW Result Comment: Jonna te reference range: >5.9 ng/ml The WHO technical consultation on folate and vitamin b12 deficiencies has determined that folate concentrations less than 4 ng/ml are considered deficient. Performed By: #### T SH3, [id number], DIFF CBC, T3F, A1C WTH eA, CMP, FE, LIPID, [id number], T4T ####[place] [id number] [address]#### INSULIN ####[facility] , Vitamin B12 ser/plasOrdered By: Sammie Gonzalez on 05-12-2024 Cobalamin (Vitamin B12) [Mass/Vol] 306 pg/mL Normal 180-914 [facility] Comment on above: Order Comment: PIPER FoleyKW Performed By: #### T SH3, [id number], DIFF CBC, T3F, A1C WTH eA, CMP, FE, LIPID, [id number], T4T ####[place] [id number] [address]#### INSULIN ####[facility] , Vitamin D 25 Hydroxy Totalon 05-12-2024 Vitamin D 25 Hydroxy Total 39.9 ng/mL Normal 30-100 The Counts Include 234 Beds At [facility] Comment on above: Order Comment: PIPER BOX JKW Result Comment: THERESE MIN D STATUS 25(OH)VITAMIN D RANGE (ng/mL) Deficient <20 Insufficient 20 to <30 Sufficient 30 to 100 Reference: Nain MF,Anum NC, Galen-Juan Carlos APARICIO, et al. Evaluation,treatment, and prevention of vitamin D deficiency; an Endocrine Society clinical practice guideline. JCEM. 2010; 96(7):1911-30. PERFORMED BY: [place] [address] PATHOLOGIST SURGICAL INSTRUMENT TECHNICIAN MONIK SILVESTRE M.D. Performed By: #### T SH3, [id number], DIFF CBC, T3F, A1C WTH eA, CMP, FE, LIPID, [id number], T4T ####[facility] [address] [facility] [place] [address] [facility]#### INSULIN ####[facility] , Vitamin D+Metabolites [Mass/ volume] in Serum or PlasmaOrdered By: Sammie Gonzalez on 05-12-2024 Vitamin D+Metabolites [Mass/Vol] 39.9 ng/mL 30-100 [facility] Comment on above: VITAMIN D STATUS 25( [place])VITAMIN D RANGE (ng/mL) Deficient <20 Insufficient 20 to <30Sufficient 30 to 100Reference: Nain MF,Anum LAURA, Brynn APARICIO, et al. Evaluation,treatment, and prevention of vitamin D deficiency; an Endocrine Society clinical practice guideline. JCEM. 2010; 96(7):1911-30. CT BRAIN WO IVCONon 01-29-[address] BRAIN WO IVCON * * *Final Report* * * DATE OF EXAM: Jan 29 2024 1:02PM [facility] 0504 - CT BRAIN WO IVCON / [...] soft tissue component identified in the orbit. 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 The soft tissue planes of the, retropharyngeal, and prevertebral spaces are maintained. The visualized parotid glands are normal in appearance. Nasopharynx/Oropharyn x: The nasopharynx and oropharynx are normal in appearance. 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 Transcribe Date/Time: Jan 31 2024 5:10P Dictated by : WESTLEY IYER MD This examination was interpreted and the report reviewed and electronically signed by: WESTLEY IYER MD on Jan 31 2024 5:28PM EST [id number] Normal [facility] Alanine aminotransferase [En zymatic activity/volume] in Serum or PlasmaOrdered By: Zeinab Wood on 01-08-2024 ALT [Catalytic activity/Vol] 22 U/L 7-52 [facility] Aspartate aminotransferase [ Enzymatic activity/volume] in Serum or PlasmaOrdered By: Zeinab Wood on 01-08-2024 AST [Catalytic activity/Vol] 16 U/L 13-39 [facility] Basophils Auto (Bld) [#/Vol] Ordered By: Zeinab Wood on 01-08-2024 Basophils (Bld) [#/Vol] 0.1 10*3/uL 0.0-0.2 [facility] Basophils/100 WBC Auto (Bld) Ordered By: Zeinab Wood on 01-08-2024 Basophils/100 WBC (Bld) 1.1 % . [facility] Creatinine [Mass/volume] in Serum or PlasmaOrdered By: Zeinab Wood on 01-08-2024 Creatinine [Mass/Vol] 1.00 mg/dL 0.60-1.20 [facility] Eosinophils Auto (Bld) [#/Vo l]Ordered By: Zeinab Wood on 01-08-2024 Eosinophils (Bld) [#/Vol] 0.1 10*3/uL 0.0-0.45 [facility] Eosinophils/100 WBC Auto (Bl d)Ordered By: Zeinab Wood on 01-08-2024 Eosinophils/100 WBC (Bld) 1.8 % . [facility] Erythrocyte distribution wid th Auto (RBC) [Ratio]Ordered By: Zeinab Wood on 01-08-2024 Erythrocyte distribution width (RBC) [Ratio] 13.1 % 11.9-15.3 [facility] Hematocrit Auto (Bld) [Volum e fraction]Ordered By: Zeinab Wood on 01-08-2024 Hematocrit (Bld) [Volume fraction] 39.2 % 34.0-46.4 [facility] Hemoglobin [Mass/volume] in BloodOrdered By: Zeinab Wood on 01-08-2024 Hemoglobin (Bld) [Mass/Vol] 13.1 g/dL 11.8-15.4 [facility] Leukocytes [#/volume] correc jana for nucleated erythrocytes in Blood by Automated counOrdered By: Zeinab Wood on 01-08-2024 WBC corrected for nucl RBC Auto (Bld) [#/Vol] 6.8 10*3/uL 3.8-11.6 [facility] Lymphocytes Auto (Bld) [#/Vo l]Ordered By: Zeinab Wood on 01-08-2024 Lymphocytes (Bld) [#/Vol] 2.0 10*3/uL 1.00-4.8 [facility] Lymphocytes/100 WBC Auto (Bl d)Ordered By: Zeinab Wood on 01-08-2024 Lymphocytes/100 WBC (Bld) 29.3 % . [facility] MCH Auto (RBC) [Entitic mass ]Ordered By: Zeinab Wood on 01-08-2024 MCH (RBC) [Entitic mass] 30.6 pg 24.7-34.3 [facility] MCHC Auto (RBC) [Mass/Vol]Or dered By: Zeinab Wood on 01-08-2024 MCHC (RBC) [Mass/Vol] 33.4 g/dL 32.0-35.0 [facility] MCV Auto (RBC) [Entitic vol] Ordered By: Zeinab Wood on 01-08-2024 MCV (RBC) [Entitic vol] 91.5 fL 80-100 [facility] Monocytes Auto (Bld) [#/Vol] Ordered By: Zeinab Wood on 01-08-2024 Monocytes (Bld) [#/Vol] 0.8 10*3/uL 0.0-0.8 [facility] Monocytes/100 WBC Auto (Bld) Ordered By: Zeinab Wood on 01-08-2024 Monocytes/100 WBC (Bld) 11.3 % . [facility] Neutrophils Auto (Bld) [#/Vo l]Ordered By: Zeinab Wood on 01-08-2024 Neutrophils (Bld) [#/Vol] 3.9 10*3/uL 1.8-7.7 [facility] Neutrophils/100 WBC Auto (Bl d)Ordered By: Zeinab Wood on 01-08-2024 Neutrophils/100 WBC (Bld) 56.5 % . [facility] No Panel InformationOrdered By: Zeinab Wood on 01-08-2024 Estimated GFR (CKD-EPI) > 60.0 mL/Min [facility] Creatinine Clearance (Chem N/A [facility] Nucleated erythrocytes [Pres ence] in Blood by Automated countOrdered By: Zeinab Wood on 01-08-2024 Nucleated RBC Auto Ql (Bld) 0.1 /100{WBC} 0-0.5 [facility] Platelet mean volume Auto (B ld) [Entitic vol]Ordered By: Zeinab Wood on 01-08-2024 Platelet mean volume (Bld) [Entitic vol] 8.4 fL 6.3-10.7 [facility] Platelets Auto (Bld) [#/Vol] Ordered By: Zeinab Wood on 01-08-2024 Platelets (Bld) [#/Vol] 284 10*3/uL 150-450 [facility] RBC Auto (Bld) [#/Vol]Ordere d By: Zeinab Wood on 01-08-2024 RBC (Bld) [#/Vol] 4.29 10*6/uL 3.60-5.00 [facility] WBC Auto (Bld) [#/Vol]Ordere d By: Zeinab Wood on 01-08-2024 WBC (Bld) [#/Vol] 6.8 10*3/uL 3.8-11.6 [facility] Basophils Auto (Bld) [#/Vol] Ordered By: Sammie Gonzalez on 11-11-2023 Basophils (Bld) [#/Vol] 0.1 10*3/uL 0.0-0.2 [facility] Basophils/100 WBC Auto (Bld) Ordered By: Sammie Gonzalez on 11-11-2023 Basophils/100 WBC (Bld) 1.0 % . [facility] Eosinophils Auto (Bld) [#/Vo l]Ordered By: Sammie Gonzalez on 11-11-2023 Eosinophils (Bld) [#/Vol] 0.1 10*3/uL 0.0-0.45 [facility] Eosinophils/100 WBC Auto (Bl d)Ordered By: Sammie Gonzalez on 11-11-2023 Eosinophils/100 WBC (Bld) 1.3 % . [facility] Erythrocyte distribution wid th Auto (RBC) [Ratio]Ordered By: Sammie Gonzalez on 11-11-2023 Erythrocyte distribution width (RBC) [Ratio] 13.3 % 11.9-15.3 [facility] Ferritin [Mass/volume] in Se rum or PlasmaOrdered By: Sammie Gonzalez on 11-11-2023 Ferritin [Mass/Vol] 88.4 ng/mL 11.0-306.8 [facility] Hematocrit Auto (Bld) [Volum e fraction]Ordered By: Sammie Gonzalez on 11-11-2023 Hematocrit (Bld) [Volume fraction] 39.9 % 34.0-46.4 [facility] Hemoglobin [Mass/volume] in BloodOrdered By: Sammie Gonzalez on 11-11-2023 Hemoglobin (Bld) [Mass/Vol] 13.0 g/dL 11.8-15.4 [facility] Iron [Mass/volume] in Serum or PlasmaOrdered By: Sammie Gonzalez on 11-11-2023 Iron [Mass/Vol] 93 ug/dL 50-212 [facility] Leukocytes [#/volume] correc jana for nucleated erythrocytes in Blood by Automated counOrdered By: Sammie Gonzalez on 11-11-2023 WBC corrected for nucl RBC Auto (Bld) [#/Vol] 8.7 10*3/uL 3.8-11.6 [facility] Lymphocytes Auto (Bld) [#/Vo l]Ordered By: Sammie Gonzalez on 11-11-2023 Lymphocytes (Bld) [#/Vol] 3.7 10*3/uL 1.00-4.8 [facility] Lymphocytes/100 WBC Auto (Bl d)Ordered By: Sammie Gonzalez on 11-11-2023 Lymphocytes/100 WBC (Bld) 42.6 % . [facility] MCH Auto (RBC) [Entitic mass ]Ordered By: Sammie Gonzalez on 11-11-2023 MCH (RBC) [Entitic mass] 30.0 pg 24.7-34.3 [facility] MCHC Auto (RBC) [Mass/Vol]Or dered By: Sammie Gonzalez on 11-11-2023 MCHC (RBC) [Mass/Vol] 32.6 g/dL 32.0-35.0 [facility] MCV Auto (RBC) [Entitic vol] Ordered By: Sammie Gonzalez on 11-11-2023 MCV (RBC) [Entitic vol] 92.1 fL 80-100 [facility] Monocytes Auto (Bld) [#/Vol] Ordered By: Sammie Gonzalez on 11-11-2023 Monocytes (Bld) [#/Vol] 0.9 10*3/uL 0.0-0.8 [facility] Monocytes/100 WBC Auto (Bld) Ordered By: Sammie Gonzalez on 11-11-2023 Monocytes/100 WBC (Bld) 9.8 % . [facility] Neutrophils Auto (Bld) [#/Vo l]Ordered By: Sammie Gonzalez on 11-11-2023 Neutrophils (Bld) [#/Vol] 4.0 10*3/uL 1.8-7.7 [facility] Neutrophils/100 WBC Auto (Bl d)Ordered By: Sammie Gonzalez on 11-11-2023 Neutrophils/100 WBC (Bld) 45.3 % . [facility] Nucleated erythrocytes [Pres ence] in Blood by Automated countOrdered By: Sammie Gonzalez on 11-11-2023 Nucleated RBC Auto Ql (Bld) 0.1 /100{WBC} 0-0.5 [facility] Platelet mean volume Auto (B ld) [Entitic vol]Ordered By: Sammie Gonzalez on 11-11-2023 Platelet mean volume (Bld) [Entitic vol] 9.0 fL 6.3-10.7 [facility] Platelets Auto (Bld) [#/Vol] Ordered By: Sammie Gonzalez on 11-11-2023 Platelets (Bld) [#/Vol] 363 10*3/uL 150-450 [facility] RBC Auto (Bld) [#/Vol]Ordere d By: Sammie Gonzalez on 11-11-2023 RBC (Bld) [#/Vol] 4.34 10*6/uL 3.60-5.00 [facility] WBC Auto (Bld) [#/Vol]Ordere d By: Sammie Gonzalez on 11-11-2023 WBC (Bld) [#/Vol] 8.7 10*3/uL 3.8-11.6 [facility] Alanine aminotransferase [En zymatic activity/volume] in Serum or PlasmaOrdered By: Sammie Gonzalez on 05-22-2023 ALT [Catalytic activity/Vol] 14 U/L 7-52 [facility] Albumin [Mass/volume] in Ser um or Plasma by Bromocresol green (BCG) dye binding methoOrdered By: Sammie Gonzalez on 05-22-2023 Albumin BCG dye [Mass/Vol] 4.1 g/dL 3.5-5.7 [facility] Alkaline phosphatase [Enzyma tic activity/volume] in Serum or PlasmaOrdered By: Sammie Gonzalez on 05-22-2023 ALP [Catalytic activity/Vol] 45 U/L 34-104 [facility] Aspartate aminotransferase [ Enzymatic activity/volume] in Serum or PlasmaOrdered By: Sammie Gonzalez on 05-22-2023 AST [Catalytic activity/Vol] 12 U/L 13-39 [facility] Basophils Auto (Bld) [#/Vol] Ordered By: Sammie Gonzalez on 05-22-2023 Basophils (Bld) [#/Vol] 0.1 10*3/uL 0.0-0.2 [facility] Basophils/100 WBC Auto (Bld) Ordered By: Sammie Gonzalez on 05-22-2023 Basophils/100 WBC (Bld) 0.9 % . [facility] Bilirubin.total [Mass/volume ] in Serum or PlasmaOrdered By: Sammie Gonzalez on 05-22-2023 Bilirubin [Mass/Vol] 0.3 mg/dL 0.3-1.0 [facility] Calcium [Mass/volume] in Ser um or PlasmaOrdered By: Sammie Gonzalez 05-22-2023 Calcium [Mass/Vol] 9.5 mg/dL 8.6-10.3 [facility] Carbon dioxide, total [Moles /volume] in Serum or PlasmaOrdered By: Sammie Gonzalez on 05-22-2023 CO2 [Moles/Vol] 25.4 mmol/L 21.0-31.0 [facility] Chloride [Moles/volume] in S micki or PlasmaOrdered By: Sammie Gonzalez on 05-22-2023 Chloride [Moles/Vol] 106 mmol/L 98-107 [facility] Cholesterol [Mass/volume] in Serum or PlasmaOrdered By: Sammie Gonzalez on 05-22-2023 Cholesterol [Mass/Vol] 182 mg/dL 140-200 [facility] Comment on above: Chol less than 200 m g/dl low riskChol 201-239 mg/dl borderline riskChol 240 mg/dl and greater high risk Cholesterol in LDL Calc [Mas s/Vol]Ordered By: Sammie Gonzalez on 05-22-2023 Cholesterol in LDL [Mass/Vol] 58 mg/dL 0-100 [facility] Comment on above: LDL ATP III CLASSIFI CATIONLDL less than 100 mg/dL OptimalLDL 100-129 mg/dL Near or above optimalLDL 130-159 mg/dL Borderline highLDL 160-189 mg/dL HighLDL greater than 189 mg/dL Very high Cholesterol in VLDL Calc [Ma ss/Vol]Ordered By: Sammie Gonzalez on 05-22-2023 Cholesterol in VLDL [Mass/Vol] 44 mg/dL [facility] Creatinine [Mass/volume] in Serum or PlasmaOrdered By: Sammie Gonzalez on 05-22-2023 Creatinine [Mass/Vol] 0.89 mg/dL 0.60-1.20 [facility] Eosinophils Auto (Bld) [#/Vo l]Ordered By: Sammie Gonzalez on 05-22-2023 Eosinophils (Bld) [#/Vol] 0.1 10*3/uL 0.0-0.45 [facility] Eosinophils/100 WBC Auto (Bl d)Ordered By: Sammie Gonzalez on 05-22-2023 Eosinophils/100 WBC (Bld) 1.3 % . [facility] Erythrocyte distribution wid th Auto (RBC) [Ratio]Ordered By: Sammie Gonzalez on 05-22-2023 Erythrocyte distribution width (RBC) [Ratio] 20.4 % 11.9-15.3 [facility] Ferritin [Mass/volume] in Se rum or PlasmaOrdered By: Sammie Gonzalez on 05-22-2023 Ferritin [Mass/Vol] 147.2 ng/mL 11.0-306.8 [facility] Globulin Calc (S) [Mass/Vol] Ordered By: Sammie Gonzalez on 05-22-2023 Globulin (S) [Mass/Vol] 1.8 g/dL [facility] Glucose [Mass/volume] in Ser um or PlasmaOrdered By: Sammie Gonzalez on 05-22-2023 Glucose [Mass/Vol] 88 mg/dL 70-100 [facility] Comment on above: ADA recommended refe rence rangeRandom Glucose Reference Range is dependent on time and content of last meal. Glucose of more than 200 mg/dL in a nonstressed, ambulatory subject supports the diagnosis of Diabetes Mellitus. Glucose mean value [Mass/vol ume] in Blood Estimated from glycated hemoglobinOrdered By: Sammie Gonzalez on 05-22-2023 Average glucose Estimated from glycated hemoglobin (Bld) [Mass/Vol] 105 mg/dL [facility] Hematocrit Auto (Bld) [Volum e fraction]Ordered By: Sammie Gonzalez on 05-22-2023 Hematocrit (Bld) [Volume fraction] 37.0 % 34.0-46.4 [facility] Hemoglobin A1c percentageOrd ered By: Sammie Gonzalez on 05-22-2023 HbA1c (Bld) [Mass fraction] 5.3 % 4.3-5.6 [facility] Comment on above: Increased risk for d iabetes: 5.7 - 6.4diabetes: >6.4glycemic control for adults with diabetes: <7.0 Hemoglobin [Mass/volume] in BloodOrdered By: Sammie Gonzalez on 05-22-2023 Hemoglobin (Bld) [Mass/Vol] 11.9 g/dL 11.8-15.4 [facility] Iron [Mass/volume] in Serum or PlasmaOrdered By: Sammie Gonzalez on 05-22-2023 Iron [Mass/Vol] 57 ug/dL 50-212 [facility] Leukocytes [#/volume] correc jana for nucleated erythrocytes in Blood by Automated counOrdered By: Sammie Gonzalez on 05-22-2023 WBC corrected for nucl RBC Auto (Bld) [#/Vol] 9.6 10*3/uL 3.8-11.6 [facility] Lymphocytes Auto (Bld) [#/Vo l]Ordered By: Sammie Gonzalez on 05-22-2023 Lymphocytes (Bld) [#/Vol] 2.2 10*3/uL 1.00-4.8 [facility] Lymphocytes/100 WBC Auto (Bl d)Ordered By: Sammie Gonzalez on 05-22-2023 Lymphocytes/100 WBC (Bld) 22.5 % . [facility] MCH Auto (RBC) [Entitic mass ]Ordered By: Sammie Gonzalez on 05-22-2023 MCH (RBC) [Entitic mass] 27.7 pg 24.7-34.3 [facility] MCHC Auto (RBC) [Mass/Vol]Or dered By: Sammie Gonzalez on 05-22-2023 MCHC (RBC) [Mass/Vol] 32.2 g/dL 32.0-35.0 [facility] MCV Auto (RBC) [Entitic vol] Ordered By: Sammie Gonzalez on 05-22-2023 MCV (RBC) [Entitic vol] 85.8 fL 80-100 [facility] Monocytes Auto (Bld) [#/Vol] Ordered By: Sammie Gonzalez on 05-22-2023 Monocytes (Bld) [#/Vol] 1.0 10*3/uL 0.0-0.8 [facility] Monocytes/100 WBC Auto (Bld) Ordered By: Sammie Gonzalez on 05-22-2023 Monocytes/100 WBC (Bld) 9.9 % . [facility] Neutrophils Auto (Bld) [#/Vo l]Ordered By: Sammie Gonzalez on 05-22-2023 Neutrophils (Bld) [#/Vol] 6.3 10*3/uL 1.8-7.7 [facility] Neutrophils/100 WBC Auto (Bl d)Ordered By: Sammie Gonzalez on 05-22-2023 Neutrophils/100 WBC (Bld) 65.4 % . [facility] No Panel InformationOrdered By: Sammie Gonzalez on 05-22-2023 Estimated GFR (CKD-EPI) > 60.0 mL/Min [facility] Creatinine Clearance (Chem N/A [facility] Nucleated erythrocytes [Pres ence] in Blood by Automated countOrdered By: Sammie Gonzalez on 05-22-2023 Nucleated RBC Auto Ql (Bld) 0.1 /100{WBC} 0-0.5 [facility] Platelet mean volume Auto (B ld) [Entitic vol]Ordered By: Sammie Gonzalez on 05-22-2023 Platelet mean volume (Bld) [Entitic vol] 9.0 fL 6.3-10.7 [facility] Platelets Auto (Bld) [#/Vol] Ordered By: Sammie Gonzalez on 05-22-2023 Platelets (Bld) [#/Vol] 339 10*3/uL 150-450 [facility] Potassium [Moles/volume] in Serum or PlasmaOrdered By: Sammie Gonzalez on 05-22-2023 Potassium [Moles/Vol] 3.9 mmol/L 3.5-5.1 [facility] Protein [Mass/volume] in Ser um or PlasmaOrdered By: Sammie Gonzalez on 05-22-2023 Protein [Mass/Vol] 5.9 g/dL 6.4-8.9 [facility] RBC Auto (Bld) [#/Vol]Ordere d By: Sammie Gonzalez on 05-22-2023 RBC (Bld) [#/Vol] 4.31 10*6/uL 3.60-5.00 [facility] Serum or plasma albumin/glob ulin mass ratioOrdered By: Sammie Gonzalez on 05-22-2023 Albumin/Globulin [Mass ratio] 2.3 {ratio} [facility] Serum or plasma anion gap de terminationOrdered By: Sammie Gonzalez on 05-22-2023 Anion gap [Moles/Vol] 10.5 mmol/L 6.0-15.0 [facility] Serum or plasma high density lipoprotein (HDL) cholesterol measurementOrdered By: Sammie Gonzalez on 05-22-2023 Cholesterol in HDL [Mass/Vol] 79 mg/dL 23-92 [facility] Comment on above: HDL CHOL ATP-III CLA SSIFICATION Cardiovascular RiskHDL > or equal to 60 mg/dL LOWHDL < 40 mg/dL HIGH Serum or plasma total choles terol/high density lipoprotein (HDL) cholesterol mass ratOrdered By: Sammie Gonzalez on 05-22-2023 Cholesterol.total/Tali sterol in HDL [Mass ratio] 2.3 {ratio} <5.0 [facility] Sodium [Moles/volume] in Ser um or PlasmaOrdered By: Sammie Gonzalez on 05-22-2023 Sodium [Moles/Vol] 138 mmol/L 136-145 [facility] Thyrotropin [Units/volume] i n Serum or PlasmaOrdered By: Sammie Gonzalez on 05-22-2023 TSH Qn 3.27 m[IU]/L 0.45-5.33 [facility] Thyroxine (T4) free [Mass/vo lume] in Serum or PlasmaOrdered By: Sammie Gonzalez on 05-22-2023 Free T4 [Mass/Vol] 0.91 ng/dL 0.61-1.12 [facility] Triglyceride [Mass/volume] i n Serum or PlasmaOrdered By: Sammie Gonzalez on 05-22-2023 Triglyceride [Mass/Vol] 223 mg/dL 0-149 [facility] Comment on above: TRIG ATP III CLASSIF ICATIONTRIG less than 150 mg/dL NormalTRIG 150-199 mg/dL Borderline highTRIG 200-500 mg/dL High TRIG greater than 500 mg/dL Very highStandard traceable to the Center for Disease Conrtrol and Prevention (CDC) test method. Urea nitrogen [Mass/volume] in Serum or PlasmaOrdered By: Sammie Gonzalez on 05-22-2023 Urea nitrogen [Mass/Vol] 10 mg/dL 7-25 [facility] WBC Auto (Bld) [#/Vol]Ordere d By: Sammie Gonzalez on 05-22-2023 WBC (Bld) [#/Vol] 9.6 10*3/uL 3.8-11.6 [facility] Basophils Auto (Bld) [#/Vol] Ordered By: Sammie Gonzalez on 04-15-2023 Basophils (Bld) [#/Vol] 0.1 10*3/uL 0.0-0.2 [facility] Basophils/100 WBC Auto (Bld) Ordered By: Sammie Gonzalez on 04-15-2023 Basophils/100 WBC (Bld) 0.8 % . [facility] Eosinophils Auto (Bld) [#/Vo l]Ordered By: Sammie Gonzalez on 04-15-2023 Eosinophils (Bld) [#/Vol] 0.1 10*3/uL 0.0-0.45 [facility] Eosinophils/100 WBC Auto (Bl d)Ordered By: Sammie Gonzalez on 04-15-2023 Eosinophils/100 WBC (Bld) 1.3 % . [facility] Erythrocyte distribution wid th Auto (RBC) [Ratio]Ordered By: Sammie Gonzalez on 04-15-2023 Erythrocyte distribution width (RBC) [Ratio] 15.8 % 11.9-15.3 [facility] Ferritin [Mass/volume] in Se rum or PlasmaOrdered By: Sammie Gonzalez on 04-15-2023 Ferritin [Mass/Vol] 5.1 ng/mL 11.0-306.8 [facility] Hematocrit Auto (Bld) [Volum e fraction]Ordered By: Sammie Gonzalez on 04-15-2023 Hematocrit (Bld) [Volume fraction] 35.0 % 34.0-46.4 [facility] Hemoglobin [Mass/volume] in BloodOrdered By: Sammie Gonzalez on 04-15-2023 Hemoglobin (Bld) [Mass/Vol] 11.2 g/dL 11.8-15.4 [facility] Iron [Mass/volume] in Serum or PlasmaOrdered By: Sammie Gonzalez on 04-15-2023 Iron [Mass/Vol] 18 ug/dL 50-212 [facility] Leukocytes [#/volume] correc jana for nucleated erythrocytes in Blood by Automated counOrdered By: Sammie Gonzalez on 04-15-2023 WBC corrected for nucl RBC Auto (Bld) [#/Vol] 9.6 10*3/uL 3.8-11.6 [facility] Lymphocytes Auto (Bld) [#/Vo l]Ordered By: Sammie Gonzalez on 04-15-2023 Lymphocytes (Bld) [#/Vol] 2.2 10*3/uL 1.00-4.8 [facility] Lymphocytes/100 WBC Auto (Bl d)Ordered By: Sammie Gonzalez on 04-15-2023 Lymphocytes/100 WBC (Bld) 23.3 % . [facility] MCH Auto (RBC) [Entitic mass ]Ordered By: Sammie Gonzalez on 04-15-2023 MCH (RBC) [Entitic mass] 26.0 pg 24.7-34.3 [facility] MCHC Auto (RBC) [Mass/Vol]Or dered By: Sammie Gonzalez on 04-15-2023 MCHC (RBC) [Mass/Vol] 32.0 g/dL 32.0-35.0 [facility] MCV Auto (RBC) [Entitic vol] Ordered By: Sammie Gonzalez on 04-15-2023 MCV (RBC) [Entitic vol] 81.2 fL 80-100 [facility] Monocytes Auto (Bld) [#/Vol] Ordered By: Sammie Gonzalez on 04-15-2023 Monocytes (Bld) [#/Vol] 0.7 10*3/uL 0.0-0.8 [facility] Monocytes/100 WBC Auto (Bld) Ordered By: Sammie Gonzalez on 04-15-2023 Monocytes/100 WBC (Bld) 7.7 % . [facility] Neutrophils Auto (Bld) [#/Vo l]Ordered By: Sammie Gonzalez on 04-15-2023 Neutrophils (Bld) [#/Vol] 6.4 10*3/uL 1.8-7.7 [facility] Neutrophils/100 WBC Auto (Bl d)Ordered By: Sammie Gonzalez on 04-15-2023 Neutrophils/100 WBC (Bld) 66.9 % . [facility] Nucleated erythrocytes [Pres ence] in Blood by Automated countOrdered By: Sammie Gonzalez on 04-15-2023 Nucleated RBC Auto Ql (Bld) 0.4 /100{WBC} 0-0.5 [facility] Platelet mean volume Auto (B ld) [Entitic vol]Ordered By: Sammie Gonzalez on 04-15-2023 Platelet mean volume (Bld) [Entitic vol] 9.1 fL 6.3-10.7 [facility] Platelets Auto (Bld) [#/Vol] Ordered By: Sammie Gonzalez on 04-15-2023 Platelets (Bld) [#/Vol] 427 10*3/uL 150-450 [facility] RBC Auto (Bld) [#/Vol]Ordere d By: Sammie Gonzalez on 04-15-2023 RBC (Bld) [#/Vol] 4.31 10*6/uL 3.60-5.00 [facility] WBC Auto (Bld) [#/Vol]Ordere d By: Sammie Gonzalez on 04-15-2023 WBC (Bld) [#/Vol] 9.6 10*3/uL 3.8-11.6 [facility] BNPon 10-11-2022 Natriuretic peptide B (Bld) [Mass/Vol] 173.0 pg/mL Normal <=450.0 [facility] Comment on above: Performed By: #### L ACT #### [facility] [address] [place] [address] Dr. Ko Durbin CBC W MANUAL DIFFon 10-11-19 23 ATYPICAL LYMPH # 0.18 103/ul Normal [facility] Comment on above: Performed By: #### C MARSHA #### [facility] [address] [place] [address] Dr. Ko Durbin ATYPICAL LYMPH % 2 % Normal [facility] Comment on above: Performed By: #### C MARSHA #### [facility] [address] [place] [address] Dr. Ko Durbin BAND # 0.0 103/ul Normal 0.0-0.[address] [facility] Comment on above: Performed By: #### C BCMAN #### [facility] [address] [place] [address] Dr. Ko Durbin BAND % 0 % Normal 0-5 [facility] Comment on above: Performed By: #### C BCMAN #### [facility] [address] [place] [address] Dr. Ko Durbin BASOM # 0.00 103/ul Normal 0.00-0.10 [facility] Comment on above: Performed By: #### C BCCHRISTIANO #### [facility] [address] [place] [address] Dr. Ko Durbin BASOM % 0.0 % Critically low 0.2-2.0 [facility] Comment on above: Performed By: #### C BCMAN #### [facility] [address] [place] [address] Dr. Ko Durbin BLAST # Normal [facility] Comment on above: Performed By: #### C MARSHA #### [facility] [address] [address] [address] Ko Durbin BLAST % Normal [facility] Comment on above: Performed By: #### C MARSHA #### [facility] [address] [address] [address] Ko Durbin CORRECTED WBC Normal 4.0-11.0 [facility] Comment on above: Performed By: #### C MARSHA #### [facility] [address] [place] [address] Dr. Ko Durbin EOS # 0.00 103/ul Normal 0.00-0.[address] [facility] Comment on above: Performed By: #### C MARSHA #### [facility] [address] [place] [address] Dr. Ko Durbin EOS% 0.0 % Critically low 0.9-7.0 [facility] Comment on above: Performed By: #### C MARSHA #### [facility] [address] [place] [address] Dr. Ko Durbin HCT 32.8 % Critically low 36.0-48.0 [facility] Comment on above: Performed By: #### C MARSHA #### [facility] [address] [place] [address] Dr. Ko Durbin HGB 11.1 g/dl Critically low 12.0-16.0 [facility] Comment on above: Performed By: #### C MARSHA #### [facility] [address] [place] [address] Dr. Ko Durbin LYMPHM # 0.18 103/ul Critically low 1.20-3.80 [facility] Comment on above: Performed By: #### C MARSHA #### [facility] [address] [place] [address] Dr. Ko Durbin LYMPHM% 2.0 % Critically low 20.5-60.0 [facility] Comment on above: Performed By: #### C MARSHA #### [facility] [address] [place] [address] Dr. Ko Durbin MCH 27.7 pg Normal 26.7-34.[address] [facility] Comment on above: Performed By: #### C MARSHA #### [facility] [address] [place] [address] Dr. Ko Durbin MCHC 33.8 g/dl Normal 29.9-35.[address] [facility] Comment on above: Performed By: #### C MARSHA #### [facility] [address] [place] [address] Dr. Ko Durbin MCV 81.8 fL Normal 81.0-99.[address] [facility] Comment on above: Performed By: #### C BCCHRISTIANO #### [facility] [address] [place] [address] Dr. Ko Durbin METAMYELOCYTE # Normal [facility] Comment on above: Performed By: #### C MARSHA #### [facility] [address] [place] [address] Dr. Ko Durbin METAMYELOCYTE % Normal [facility] Comment on above: Performed By: #### C MARSHA #### [facility] [address] [place] [address] Dr. Ko Durbin MONOM# 0.09 103/ul Critically low 0.30-0.80 [facility] Comment on above: Performed By: #### C MARSHA #### [facility] [address] [place] [address] Dr. Ko Durbin MONOM% 1.0 % Critically low 1.7-12.0 [facility] Comment on above: Performed By: #### C MARSHA #### [facility] [address] [place] [address] Dr. Ko Durbin MPV 9.8 fL Normal 9.5-13.[address] [facility] Comment on above: Performed By: #### C MARSHA #### [facility] [address] [place] [address] Dr. Ko Durbin MYELOCYTE # Normal [facility] Comment on above: Performed By: #### C MARSHA #### [facility] [address] [place] [address] Dr. Ko Durbin MYELOCYTE % Normal [facility] Comment on above: Performed By: #### C MARSHA #### [facility] [address] [place] [address] Dr. Ko Durbin NRBC Normal [facility] Comment on above: Performed By: #### C MARSHA #### [facility] [address] [address] [address] Ko Durbin PLT 375 103/ul Normal 150-[address] [facility] Comment on above: Performed By: #### C MARSHA #### [facility] [address] [address] [address] Ko Durbin RBC 4.01 106/ul Critically low 4.20-5.40 [facility] Comment on above: Performed By: #### C MARSHA #### [facility] [address] [place] [address] Dr. Ko Durbin RDW 13.5 % Normal 11.0-15.[address] [facility] Comment on above: Performed By: #### C MARSHA #### [facility] [address] [place] [address] Dr. Ko Durbin SEG # 8.55 103/ul Critically high 1.40-6.50 [facility] Comment on above: Performed By: #### C MARSHA #### [facility] [address] [place] [address] Dr. Ko Durbin SEG % 95.0 % Critically high 43.0-75.0 [facility] Comment on above: Performed By: #### C MARSHA #### [facility] [address] [place] [address] Dr. Ko Durbin WBC 9.0 103/ul Normal 4.0-11.[address] [facility] Comment on above: Performed By: #### C MARSHA #### [facility] [address] [place] [address] Dr. Ko Durbin POINT OF CARE GLUCOSEon 09-15 Glucose [Mass/Vol] 98 mg/dL Normal 74-106 [facility] Comment on above: Performed By: #### L ACT #### [facility] [address] [address] [address] Ko Durbin Glucose [Mass/Vol] 158 mg/dL Critically high 74-106 [facility] Comment on above: Performed By: #### P OCGLUC #### [facility] [address] [address] [address] Ko Durbin PROF 14(COMP METB)on 023 Albumin [Mass/Vol] 3.7 g/dL Normal 3.4-5.0 [facility] Comment on above: Performed By: #### L ACT #### [facility] [address] [address] [address] Ko Durbin Albumin/Globulin [Mass ratio] 1.2 {ratio} Normal [facility] Comment on above: Performed By: #### L ACT #### [facility] [address] [place] [address] Dr. Ko Durbin ALP [Catalytic activity/Vol] 42 U/L Critically low 46-[address] [facility] Comment on above: Performed By: #### L ACT #### [facility] [address] [place] [address] Dr. Ko Durbin ALT [Catalytic activity/Vol] 30 U/L Normal 14-[address] [facility] Comment on above: Performed By: #### L ACT #### [facility] [address] [place] [address] Dr. Ko Durbin Anion gap [Moles/Vol] 17.1 mmol/L Normal [facility] Comment on above: Performed By: #### L ACT #### [facility] [address] [address] [address] Ko Durbin AST [Catalytic activity/Vol] 15 U/L Normal 15-[address] [facility] Comment on above: Performed By: #### L ACT #### [facility] [address] [place] [address] Dr. Ko Durbin Bilirubin [Mass/Vol] 0.2 mg/dL Normal 0.2-1.[address] [facility] Comment on above: Performed By: #### L ACT #### [facility] [address] [address] [address] Ko Durbin Calcium [Mass/Vol] 9.6 mg/dL Normal 8.5-10.1 [facility] Comment on above: Performed By: #### L ACT #### [facility] [address] [address] [address] Ko Durbin Chloride [Moles/Vol] 100 mmol/L Normal 98-[address] [facility] Comment on above: Performed By: #### L ACT #### [facility] [address] [address] [address] Ko Durbin CO2 [Moles/Vol] 22.3 mmol/L Normal 21.0-32.0 [facility] Comment on above: Performed By: #### L ACT #### [facility] [address] [address] [address] Ko Durbin Creatinine [Mass/Vol] 1.10 mg/dL Critically high 0.55-1.[address] [facility] Comment on above: Performed By: #### L ACT #### [facility] [address] [address] [address] Ko Durbin EGFR-AF CHADIAN >60 Normal >=60 [facility] Comment on above: Performed By: #### L ACT #### [facility] [address] [address] [address] Ko Durbin EGFR-NON AF CHADIAN 54 mL/min/1.73m2 Critically low >=[address] [facility] Comment on above: Performed By: #### L ACT #### [facility] [address] [address] [address] Ko Durbin Globulin (S) [Mass/Vol] 3.1 g/dL Normal [facility] Comment on above: Performed By: #### L ACT #### [facility] [address] [address] [address] Ko Durbin Glucose [Mass/Vol] 180 mg/dL Critically high 74-106 [facility] Comment on above: Performed By: #### L ACT #### [facility] [address] [address] [address] Ko Durbin Potassium [Moles/Vol] 3.4 mmol/L Critically low 3.5-5.[address] [facility] Comment on above: Performed By: #### L ACT #### [facility] [address] [place] [address] Dr. Ko Durbin Protein [Mass/Vol] 6.8 g/dL Normal 6.4-8.2 [facility] Comment on above: Performed By: #### L ACT #### [facility] [address] [address] [address] Ko Durbin Sodium [Moles/Vol] 136 mmol/L Normal 136-145 [facility] Comment on above: Performed By: #### L ACT #### [facility] [address] [place] [address] Dr. Ko Durbin Urea nitrogen [Mass/Vol] 19.0 mg/dL Critically high 7.0-18.[address] [facility] Comment on above: Performed By: #### L ACT #### [facility] [address] [place] [address] Dr. Ko Durbin Urea nitrogen/Creatinine [Mass ratio] 17.3 mg/mg Normal [facility] Comment on above: Performed By: #### L ACT #### [facility] [address] [place] [address] Dr. Ko Durbin BNPon 10-10-2022 Natriuretic peptide B (Bld) [Mass/Vol] 291.0 pg/mL Normal <=450.[address] [facility] Comment on above: Performed By: #### C MP, CMADM, BNP #### [facility] [address] [place] [address] Dr. Ko Durbin CARDIAC PERRY ADMITon 023 CK [Catalytic activity/Vol] 286 U/L Critically high 26-192 [facility] Comment on above: Performed By: #### C MP, CMADM, BNP #### [facility] [address] [place] [address] Dr. Ko Durbin CK.MB [Mass/Vol] 4.51 ng/mL Critically high <=3.[address] [facility] Comment on above: Performed By: #### C MP, CMADM, BNP #### [facility] [address] [place] [address] Dr. Ko Durbin HSTROP 5.0 pg/mL Normal 4.0-51.[address] [facility] Comment on above: Result Comment: CUT- OFF POINTS HAVE BEEN ESTABLISHED BASED ON THE FOURTH UNIVERSAL DEFINITIONS OF MYOCARDIAL INFARCTION. THE UPPER REFERENCE LIMIT (URL) OF TROPONIN, DEFINED THE 99TH PERCENTILE OF cTnI DISTRIBUTION IN A REFERENCE POPULATION, HAS BEEN CONFIRMED THE DECISION THRESHOLD FOR MS DIAGNOSIS. Performed By: #### C MP, CMADM, BNP #### [facility] [address] [place] [address] Dr. Ko Durbin JAROD 184 ng/mL Critically high 9-82 [facility] Comment on above: Performed By: #### C MP, CMADM, BNP #### [facility] [address] [place] [address] Dr. Ko Durbin CBC AUTO DIFFon 10-10-2022 BASO # 0.0 103/ul Normal 0.0-0.[address] [facility] Comment on above: Performed By: #### C BC #### [facility] [address] [place] [address] Dr. Ko Durbin Basophils/100 WBC (Bld) 0.2 % Normal 0.2-2.0 [facility] Comment on above: Performed By: #### C BC #### [facility] [address] [place] [address] Dr. Ko Durbin EO # 0.0 103/ul Normal 0.0-0.[address] [facility] Comment on above: Performed By: #### C BC #### [facility] [address] [place] [address] Dr. Ko Durbin Eosinophils/100 WBC (Bld) 0.0 % Critically low 0.9-7.[address] [facility] Comment on above: Performed By: #### C BC #### [facility] [address] [place] [address] Dr. Ko Durbin Erythrocyte distribution width (RBC) [Ratio] 13.7 % Normal 11.0-15.[address] [facility] Comment on above: Performed By: #### C BC #### [facility] [address] [address] [address] Ko Durbin Hematocrit (Bld) [Volume fraction] 31.8 % Critically low 36.0-48.[address] [facility] Comment on above: Performed By: #### C BC #### [facility] [address] [place] [address] Dr. Ko Durbin Hemoglobin (Bld) [Mass/Vol] 11.1 g/dL Critically low 12.0-16.[address] [facility] Comment on above: Performed By: #### C BC #### [facility] [address] [place] [address] Dr. Ko Durbin IG # 0.11 10e3/ul Critically high 0.00-0.03 [facility] Comment on above: Performed By: #### C BC #### [facility] [address] [place] [address] Dr. Ko uDrbin IG % 1.0 % Critically high 0.0-0.5 [facility] Comment on above: Performed By: #### C BC #### [facility] [address] [place] [address] Dr. Ko Durbin LYMPH # 1.8 103/ul Normal 1.2-3.[address] [facility] Comment on above: Performed By: #### C BC #### [facility] [address] [place] [address] Dr. Ko Durbin Lymphocytes/100 WBC (Bld) 16.2 % Critically low 20.5-60.[address] [facility] Comment on above: Performed By: #### C BC #### [facility] [address] [place] [address] Dr. Ko Durbin MANUAL DIFF REQ NO Normal [facility] Comment on above: Performed By: #### C BC #### [facility] [address] [place] [address] Dr. Ko Durbin MCH (RBC) [Entitic mass] 28.2 pg Normal 26.7-34.[address] [facility] Comment on above: Performed By: #### C BC #### [facility] [address] [address] [address] Ko Durbin MCHC (RBC) [Mass/Vol] 34.9 g/dL Normal 29.9-35.[address] [facility] Comment on above: Performed By: #### C BC #### [facility] [address] [address] [address] Ko Durbin MCV (RBC) [Entitic vol] 80.7 fL Critically low 81.0-99. [address] [facility] Comment on above: Performed By: #### C BC #### [facility] [address] [place] [address] Dr. Ko Durbin MONO # 0.7 103/ul Normal 0.3-0.[address] [facility] Comment on above: Performed By: #### C BC #### [facility] [address] [place] [address] Dr. Ko Durbin Monocytes/100 WBC (Bld) 6.3 % Normal 1.7-12.0 [facility] Comment on above: Performed By: #### C BC #### [facility] [address] [place] [address] Dr. Ko Durbin NEUT # 8.4 103/ul Critically high 1.4-6.5 [facility] Comment on above: Performed By: #### C BC #### [facility] [address] [place] [address] Dr. Ko Durbin Neutrophils/100 WBC (Bld) 76.3 % Critically high 43.0-75.[address] [facility] Comment on above: Performed By: #### C BC #### [facility] [address] [place] [address] Dr. Ko Durbin Platelet mean volume (Bld) [Entitic vol] 9.5 fL Normal 9.5-13.[address] [facility] Comment on above: Performed By: #### C BC #### [facility] [address] [place] [address] Dr. Ko Durbin PLT 384 103/ul Normal 150-450 [facility] Comment on above: Performed By: #### C BC #### [facility] [address] [place], [place] [address] Dr. Ko Durbin RBC 3.94 106/ul Critically low 4.20-5.40 [facility] Comment on above: Performed By: #### C BC #### [facility] [address] [place], [place] [address] Dr. Ko Durbin WBC 11.0 103/ul Normal 4.0-11.[address] [facility] Comment on above: Performed By: #### C BC #### [facility] [id number] Ko Durbin CULTURE URINEon 10-10-2022 CULTURE URINE Culture Observations : NO GROWTH. Normal [facility] Comment on above: Performed By: #### U RCX #### [facility] [address] [address] [address] Ko Durbin Covid-19 PCR (CVDTBH)on 09-15 SARS-CoV-2 (COVID-19) RNA RADHA+probe Ql (Unsp spec) Not detected Normal NOT DETECTED [facility] Comment on above: Result Comment: When diagnostic [...] for this test is supported by the [employer] of [employer] and Human Service's declaration that [...] used). Performed By: #### C VDTBH #### [facility] [id number] Ko Durbin LACTATE/LACTIC ACIDon 2022 Lactate [Moles/Vol] 1.7 mmol/L Normal 0.4-1.9 [facility] Comment on above: Performed By: #### L ACT #### [facility] [address] [address] [address] Ko Durbin POINT OF CARE GLUCOSEon 09-15 Glucose [Mass/Vol] 139 mg/dL Critically high 74-106 [facility] Comment on above: Performed By: #### P OCGLUC #### [facility] [address] [address] [address] Ko Durbin Glucose [Mass/Vol] 99 mg/dL Normal 74-106 [facility] Comment on above: Performed By: #### L ACT #### [facility] [address] [place] [address] Dr. Ko Durbin PROF 14(COMP METB)on 023 Albumin [Mass/Vol] 3.9 g/dL Normal 3.4-5.0 [facility] Comment on above: Performed By: #### C MP, CMADM, BNP #### [facility] [address] [place] [address] Dr. Ko Durbin Albumin/Globulin [Mass ratio] 1.3 {ratio} Normal [facility] Comment on above: Performed By: #### C MP, CMADM, BNP #### [facility] [address] [place] [address] Dr. Ko Durbin ALP [Catalytic activity/Vol] 43 U/L Critically low 46-[address] [facility] Comment on above: Performed By: #### C MP, CMADM, BNP #### [facility] [address] [place] [address] Dr. Ko Durbin ALT [Catalytic activity/Vol] 34 U/L Normal 14-[address] [facility] Comment on above: Performed By: #### C MP, CMADM, BNP #### [facility] [address] [place] [address] Dr. Ko Durbin Anion gap [Moles/Vol] 16.2 mmol/L Normal [facility] Comment on above: Performed By: #### C MP, CMADM, BNP #### [facility] [address] [address] [address] Ko Durbin AST [Catalytic activity/Vol] 18 U/L Normal 15-[address] [facility] Comment on above: Performed By: #### C MP, CMADM, BNP #### [facility] [address] [address] [address] Ko Durbin Bilirubin [Mass/Vol] 0.2 mg/dL Normal 0.2-1.[address] [facility] Comment on above: Performed By: #### C MP, CMADM, BNP #### [facility] [address] [address] [address] Ko Durbin Calcium [Mass/Vol] 9.4 mg/dL Normal 8.5-10.1 [facility] Comment on above: Performed By: #### C MP, CMADM, BNP #### [facility] [address] [address] [address] Ko Durbin Chloride [Moles/Vol] 99 mmol/L Normal 98-[address] [facility] Comment on above: Performed By: #### C MP, CMADM, BNP #### [facility] [address] [address] [address] Ko Durbin CO2 [Moles/Vol] 25.7 mmol/L Normal 21.0-32.0 [facility] Comment on above: Performed By: #### C MP, CMADM, BNP #### [facility] [address] [address] [address] Ko Durbin Creatinine [Mass/Vol] 1.10 mg/dL Critically high 0.55-1.[address] [facility] Comment on above: Performed By: #### C MP, CMADM, BNP #### [facility] [address] [address] [address] Ko Durbin EGFR-AF CHADIAN >60 Normal >=60 [facility] Comment on above: Performed By: #### C MP, CMADM, BNP #### [facility] [address] [address] [address] Ko Durbin EGFR-NON AF CHADIAN 54 mL/min/1.73m2 Critically low >=[address] [facility] Comment on above: Performed By: #### C MP, CMADM, BNP #### [facility] [address] [place] [address] Dr. Ko Durbin Globulin (S) [Mass/Vol] 2.9 g/dL Normal [facility] Comment on above: Performed By: #### C MP, CMADM, BNP #### [facility] [address] [place] [address] Dr. Ko Durbin Glucose [Mass/Vol] 97 mg/dL Normal 74-106 [facility] Comment on above: Performed By: #### C MP, CMADM, BNP #### [facility] [address] [place] [address] Dr. Ko Durbin Potassium [Moles/Vol] 3.9 mmol/L Normal 3.5-5.[address] [facility] Comment on above: Performed By: #### C MP, CMADM, BNP #### [facility] [address] [place] [address] Dr. Ko Durbin Protein [Mass/Vol] 6.8 g/dL Normal 6.4-8.2 [facility] Comment on above: Performed By: #### C MP, CMADM, BNP #### [facility] [address] [place] [address] Dr. Ko Durbin Sodium [Moles/Vol] 137 mmol/L Normal 136-145 [facility] Comment on above: Performed By: #### C MP, CMADM, BNP #### [facility] [address] [place] [address] Dr. Ko Durbin Urea nitrogen [Mass/Vol] 16.0 mg/dL Normal 7.0-18.[address] [facility] Comment on above: Performed By: #### C MP, CMADM, BNP #### [facility] [address] [place] [address] Dr. Ko Durbin Urea nitrogen/Creatinine [Mass ratio] 14.5 mg/mg Normal [facility] Comment on above: Performed By: #### C MP, CMADM, BNP #### [facility] [address] [place] [address] Dr. Ko Durbin UA RANDOM W/MICROSCOPICon BACTERIA NONE SEEN Normal NONE SEEN [facility] Comment on above: Performed By: #### L ACT #### [facility] [address] [place] [address] Dr. Ko Durbin Bilirubin Ql (U) Negative Normal NEGATIVE [facility] Comment on above: Performed By: #### L ACT #### [facility] [address] [place] [address] Dr. Ko Durbin CAST NONE SEEN Normal NONE SEEN [facility] Comment on above: Performed By: #### L ACT #### [facility] [address] [place] [address] Dr. Ko Durbin Clarity (U) CLEAR Normal CLEAR [facility] Comment on above: Performed By: #### L ACT #### [facility] [address] [place] [address] Dr. Ko Durbin Color (U) LT. YELLOW Normal YELLOW [facility] Comment on above: Performed By: #### L ACT #### [facility] [address] [place] [address] Dr. Ko Durbin Crystals LM Nom (Urine sed) NONE SEEN Normal NONE SEEN [facility] Comment on above: Performed By: #### L ACT #### [facility] [address] [place] [address] Dr. Ko Durbin Epithelial cells LM Ql (Urine sed) NONE SEEN Normal NONE SEEN /RARE [facility] Comment on above: Performed By: #### L ACT #### [facility] [address] [place] [address] Dr. Ko Durbin Glucose Ql (U) 500 mg/dl Abnormal NEGATIVE [facility] Comment on above: Performed By: #### L ACT #### [facility] [address] [place] [address] Dr. Ko Durbin Hemoglobin Ql (U) TRACE-INTACT Abnormal NEGATIVE [facility] Comment on above: Performed By: #### L ACT #### [facility] [address] [place] [address] Dr. Ko Durbin Ketones Ql (U) Negative Normal NEGATIVE [facility] Comment on above: Performed By: #### L ACT #### [facility] [address] [place] [address] Dr. Ko Durbin LEUKOCYTES Negative Normal NEGATIVE [facility] Comment on above: Performed By: #### L ACT #### [facility] [address] [place] [address] Dr. Ko Durbin MUCOUS NONE SEEN Normal NONE SEEN [facility] Comment on above: Performed By: #### L ACT #### [facility] [address] [place] [address] Dr. Ko Durbin Nitrite Ql (U) Negative Normal NEGATIVE [facility] Comment on above: Performed By: #### L ACT #### [facility] [address] [place] [address] Dr. Ko Durbin pH (U) 5.5 [pH] Normal 5-[address] [facility] Comment on above: Performed By: #### L ACT #### [facility] [address] [place] [address] Dr. Ko Durbin RBC 0-2 Normal 0-[address] [facility] Comment on above: Performed By: #### L ACT #### [facility] [address] [place] [address] Dr. Ko Durbin SPEC GRAVITY <=1.005 Abnormal 1.005-<=1.[address] [facility] Comment on above: Performed By: #### L ACT #### [facility] [address] [place] [address] Dr. Ko Durbin UA PROTEIN Negative Normal NEGATIVE/ TRACE [facility] Comment on above: Performed By: #### L ACT #### [facility] [address] [place] [address] Dr. Ko Durbin Urobilinogen Qn (U) 0.2 {Rich'U}/dL Normal 0.2 - 1. [address] [facility] Comment on above: Performed By: #### L ACT #### [facility] [address] [place] [address] Dr. Ko Durbin WBC NONE SEEN Normal NONE SEEN [facility] Comment on above: Performed By: #### L ACT #### [facility] [id number] Ko Durbin XR CHEST 2 Von [...] LIAT MARISCAL Date: 2022-10-10 17:23 Normal [facility] XR wrist RT min 3V*on 2022 XR wrist RT min 3V* [facility] [employer] Other XR wrist RT min 3V* [facility] [employer] Other XR wrist RT min 3V* [address] [place] [address] [employer] Other XR wrist RT min 3V* [place] [address] [employer] Other XR wrist RT min 3V* XRay Report [facility] [employer] Other XR wrist RT min 3V* Signed [employer] Other XR wrist RT min 3V* Patient: Kourtney Novak MR#: [id number] [employer] Other XR wrist RT min 3V* [id number] [employer] Other XR wrist RT min 3V* : 1975 Acct:[id number] [employer] Other XR wrist RT min 3V* Age/Sex: 46 / F ADM Date: 09/24/22 [employer] Other XR wrist RT min 3V* Loc: [facility] Room: Type : [facility] [employer] Other XR wrist RT min 3V* Attending Dr: Naz Gomes MD [employer] Other XR wrist RT min 3V* Copies to: Elyssa Gomes MD [employer] Other XR wrist RT min 3V* Ordering Provider: Elyssa Gomes MD [employer] Other XR wrist RT min 3V* Date of Service: 09/24/22 [employer] Other XR wrist RT min 3V* XR/XR wrist RT min 3V*: Osteochondrosis of lunate of right wrist [employer] Other XR wrist RT min 3V* RIGHT WRIST - 4 views [employer] Other XR wrist RT min 3V* CLINICAL HISTORY: Follow-up right wrist denervation and radial core decompression [employer] Other XR wrist RT min 3V* COMPARISON: None [employer] Other XR wrist RT min 3V* FINDINGS: [employer] Other XR wrist RT min 3V* No focal soft tissue abnormality. 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 Triquetral fracture is unchanged. Mild degenerative changes without bony erosion. [employer] Other XR wrist RT min 3V* XR/XR wrist RT min 3V* [employer] Other XR wrist RT min 3V* IMPRESSION: [employer] Other XR wrist RT min 3V* NO SIGNIFICANT DURBIN E IN WRIST FINDINGS. [employer] Other XR wrist RT min 3V* Impression dictated by: Lukasz Santana Jr.OEstefany09/24/2022 4:36 PM [employer] Other XR wrist RT min 3V* Dictation Location: [id number] [employer] Other XR wrist RT min 3V* Transcribed By: PWS 09/24/22 1636 [employer] Other XR wrist RT min 3V* Dictated By: Rainer Martinez Jr, 09/24/22 1634 [employer] Other XR wrist RT min 3V* Signed By: [employer] Other XR wrist RT min 3V* 09/24/22 1636 No rt [employer] Other Urine culture routineOrdered By: Sammie Gonzalez on 07-31-2022 Bacteria identified Cx Nom (U) 2 Days [facility] Automated erythrocytes count in urine sediment (number/area)Ordered By: Sammie Gonzalez on 07-29-2022 RBC Auto (Urine sed) [#/Area] 3-4 [HPF] 0-4 [facility] Automated leukocytes count i n urine sediment (number/area)Ordered By: Sammie Gonzalez on 07-29-2022 WBC Auto (Urine sed) [#/Area] None seen [HPF] 0-4 [facility] Bilirubin Test strip Ql (U)O rdered By: Sammie Gonzalez on 07-29-2022 Bilirubin Ql (U) Negative Negative [facility] Color Auto (U)Ordered By: Do erik Gonzalez on 07-29-2022 Color (U) Yellow Yellow [facility] Ketones Auto test strip (U) [Mass/Vol]Ordered By: Sammie Gonzalez on 07-29-2022 Ketones (U) [Mass/Vol] Negative Negative [facility] - UrinalysisOrder ed By: Sammie Gonzalez on 07-29-2022 Hyaline casts LM Ql (Urine sed) None seen [LPF] 0-8 [facility] Nitrite Test strip Ql (U)Ord ered By: Sammie Gonzalez on 07-29-2022 Nitrite Ql (U) Negative Negative [facility] Protein Auto test strip (U) [Mass/Vol]Ordered By: Sammie Gonzalez on 07-29-2022 Protein (U) [Mass/Vol] Negative Negative [facility] Specific gravity Auto test s trip (U) [Rel density]Ordered By: Sammie Gonzalez on 07-29-2022 Specific gravity (U) [Rel density] 1.013 1.001-1.030 [facility] Squamous epithelial cells de tection in urine sediment by light microscopyOrdered By: Sammie Gonzalez on 07-29-2022 Epithelial cells.squamous LM Ql (Urine sed) None seen [HPF] 0-2 [facility] Urine bacteria detection by automated methodOrdered By: Sammie Gonzalez on 07-29-2022 Bacteria Auto Ql (U) None seen None Seen [facility] Urine clarity by refractomet ry automatedOrdered By: Sammie Gonzalez on 07-29-2022 Clarity Refractometry automated (U) Clear Clear [facility] Urine culture routineOrdered By: Sammie Gonzalez on 07-29-2022 Bacteria identified Cx Nom (U) 2 Days [facility] Urine glucose measurement by automated test strip (mass/volume)Ordered By: Sammie Gonzalez on 07-29-2022 Glucose Auto test strip (U) [Mass/Vol] >=1000 mg/dL Normal [facility] Urine hemoglobin detection b y automated test stripOrdered By: Sammie Gonzalez on 07-29-2022 Hemoglobin Auto test strip Ql (U) Trace Negative [facility] Urine leukocyte esterase det ection by automated test stripOrdered By: Sammie Gonzalez on 07-29-2022 Leukocyte esterase Auto test strip Ql (U) Negative Negative [facility] Urobilinogen Auto test strip (U) [Mass/Vol]Ordered By: Sammie Gonzalez on 07-29-2022 Urobilinogen (U) [Mass/Vol] Normal mg/dL Normal [facility] pH Auto test strip (U)Ordere d By: Sammie Gonzalez on 07-29-2022 pH (U) 6.0 [pH] 5.0-9.0 [facility] Albumin [Mass/volume] in Ser um or PlasmaOrdered By: Sammie Gonzalez on 05-01-2022 Albumin [Mass/Vol] 4.0 g/dL 3.2-5.5 [facility] Basophils Auto (Bld) [#/Vol] Ordered By: Sammie Gonzalez on 05-01-2022 Basophils (Bld) [#/Vol] 0.0 10*3/uL 0.0-0.2 [facility] Basophils/100 WBC Auto (Bld) Ordered By: Sammie Gonzalez on 05-01-2022 Basophils/100 WBC (Bld) 0.8 % . F [facility] Blood hemoglobin measurement (mass/volume)Ordered By: Sammie Gonzalez on 05-01-2022 Hemoglobin (Bld) [Mass/Vol] 12.4 g/dL 11.8-15.4 [facility] Blood leukocytes automated c ount (number/volume)Ordered By: Sammie Gonzalez on 05-01-2022 WBC (Bld) [#/Vol] 6.0 10*3/uL 4.5-11.0 [facility] Cholesterol [Mass/volume] in Serum or PlasmaOrdered By: Sammie Gonzalez on 05-01-2022 Cholesterol [Mass/Vol] 189 mg/dL 140-200 [facility] Comment on above: Chol less than 200 m g/dl low risk Chol 201-239 mg/dl borderline risk Chol 240 mg/dl and greater high risk Chol less than 200 m g/dl low riskChol 201-239 mg/dl borderline riskChol 240 mg/dl and greater high risk Cholesterol in LDL Calc [Mas s/Vol]Ordered By: Sammie Gonzalez on 05-01-2022 Cholesterol in LDL [Mass/Vol] 92 mg/dL 0-100 [facility] Comment on above: LDL ATP [...] 05-01-2022 Cholesterol in VLDL [Mass/Vol] 19 mg/dL [facility] Creatinine and Glomerular fi ltration rate.predicted panel (S/P/Bld)Ordered By: Sammie Gonzalez on 05-01-2022 Creatinine [Mass/Vol] 1.06 mg/dL 0.44-1.03 [facility] Eosinophils Auto (Bld) [#/Vo l]Ordered By: Sammie Gonzalez on 05-01-2022 Eosinophils (Bld) [#/Vol] 0.1 10*3/uL 0.0-0.45 [facility] Eosinophils/100 WBC Auto (Bl d)Ordered By: Sammie Gonzalez on 05-01-2022 Eosinophils/100 WBC (Bld) 1.2 % . [facility] Erythrocyte distribution wid th Auto (RBC) [Ratio]Ordered By: Sammie Gonzalez on 05-01-2022 Erythrocyte distribution width (RBC) [Ratio] 13.7 % 11.9-15.3 [facility] Estimated glomerular filtrat ion rate (GFR) non- AmericanOrdered By: Sammie Gonzalez on 05-01-2022 GFR/1.73 sq M.predicted among non-blacks MDRD (S/P/Bld) [Vol rate/Area] 56 mL/Min [facility] Globulin Calc (S) [Mass/Vol] Ordered By: Sammie Gonzalez on 05-01-2022 Globulin (S) [Mass/Vol] 2.3 g/dL [facility] Glucose mean value [Mass/vol ume] in Blood Estimated from glycated hemoglobinOrdered By: Sammie Gonzalez on 05-01-2022 Average glucose Estimated from glycated hemoglobin (Bld) [Mass/Vol] 117 mg/dL [facility] Hematocrit Auto (Bld) [Volum e fraction]Ordered By: Sammie Gonzalez on 05-01-2022 Hematocrit (Bld) [Volume fraction] 38.4 % 34.0-46.4 [facility] Hemoglobin A1c percentageOrd ered By: Sammie Gonzalez on 05-01-2022 HbA1c (Bld) [Mass fraction] 5.7 % 4.3-5.6 [facility] Comment on above: Increased risk for d iabetes: 5.7 - 6.4 diabetes: >6.4 glycemic control for adults with diabetes: <7.0 Increased risk for d iabetes: 5.7 - 6.4diabetes: >6.4glycemic control for adults with diabetes: <7.0 Iron [Mass/volume] in Serum or PlasmaOrdered By: Sammie Gonzalez on 05-01-2022 Iron [Mass/Vol] 48 ug/dL 40-150 [facility] Laboratory - Chemistry and C hemistry - challengeOrdered By: Sammie Gonzalez on 05-01-2022 Natriuretic peptide B (Bld) [Mass/Vol] 7.0 pg/mL 5-100 [facility] Laboratory - Hematology and Cell countsOrdered By: Sammie Gonzalez on 05-01-2022 Nucleated RBC/100 WBC (Bld) [Ratio] 0.0 % 0-0.5 [facility] Lymphocytes Auto (Bld) [#/Vo l]Ordered By: Sammie Gonzalez on 05-01-2022 Lymphocytes (Bld) [#/Vol] 1.4 10*3/uL 1.00-4.8 [facility] Lymphocytes/100 WBC Auto (Bl d)Ordered By: Sammie Gonzalez on 05-01-2022 Lymphocytes/100 WBC (Bld) 23.0 % . [facility] MCH Auto (RBC) [Entitic mass ]Ordered By: Sammie Gonzalez on 05-01-2022 MCH (RBC) [Entitic mass] 28.9 pg 24.7-34.3 [facility] MCHC Auto (RBC) [Mass/Vol]Or dered By: Sammie Gonzalez on 05-01-2022 MCHC (RBC) [Mass/Vol] 32.4 g/dL 32.0-35.0 [facility] MCV Auto (RBC) [Entitic vol] Ordered By: Sammie Gonzalez on 05-01-2022 MCV (RBC) [Entitic vol] 89.1 fL 80-100 [facility] Monocytes Auto (Bld) [#/Vol] Ordered By: Sammie Gnozalez on 05-01-2022 Monocytes (Bld) [#/Vol] 0.6 10*3/uL 0.0-0.8 [facility] Monocytes/100 WBC Auto (Bld) Ordered By: Sammie Gonzalez on 08-18-2022 Monocytes/100 WBC (Bld) 9.1 % . [facility] Neutrophils Auto (Bld) [#/Vo l]Ordered By: Sammie Gonzalez on 05-01-2022 Neutrophils (Bld) [#/Vol] 4.0 10*3/uL 1.8-7.7 [facility] Neutrophils/100 WBC Auto (Bl d)Ordered By: Sammie Gonzalez on 05-01-2022 Neutrophils/100 WBC (Bld) 65.9 % . [facility] No Panel InformationOrdered By: Sammie Gonzalez on 05-01-2022 Estimated GFR () > 60 mL/Min [facility] Comment on above: GFR estimated refere nce range: According to KDOQI guidelines, <60 ml/min/1.73m2 is sufficient to diagnose a patient with chronic kidney disease. Pharmacy Creatinine Clearance (Chem N/A [facility] Platelet mean volume Auto (B ld) [Entitic vol]Ordered By: Sammie Gonzalez on 05-01-2022 Platelet mean volume (Bld) [Entitic vol] 8.5 fL 6.3-10.7 [facility] Platelets Auto (Bld) [#/Vol] Ordered By: Sammie Gonzalez on 05-01-2022 Platelets (Bld) [#/Vol] 385 10*3/uL 150-450 [facility] Protein [Mass/volume] in Ser um or PlasmaOrdered By: Sammie Gonzalez on 05-01-2022 Protein [Mass/Vol] 6.3 g/dL 6.1-7.9 [facility] RBC Auto (Bld) [#/Vol]Ordere d By: Sammie Gonzalez on 05-01-2022 RBC (Bld) [#/Vol] 4.31 10*6/uL 3.60-5.00 [facility] Serum or plasma alanine bass otransferase measurement without P-5'-P (enzymatic activiOrdered By: Sammie Gonzalez on 05-01-2022 ALT No additional P-5'-P [Catalytic activity/Vol] 22 U/L 10-60 [facility] Serum or plasma albumin/glob ulin mass ratioOrdered By: Sammie Gonzalez on 05-01-2022 Albumin/Globulin [Mass ratio] 1.7 {ratio} [facility] Serum or plasma alkaline leela sphatase measurement (enzymatic activity/volume)Ordered By: Sammie Gonzalez on 05-01-2022 ALP [Catalytic activity/Vol] 52 U/L 32-92 [facility] Serum or plasma aspartate am inotransferase measurement (enzymatic activity/volume)Ordered By: Sammie Gonzalez on 05-01-2022 AST [Catalytic activity/Vol] 17 U/L 10-42 [facility] Serum or plasma calcium kiara urement (mass/volume)Ordered By: Sammie Gonzalez on 05-01-2022 Calcium [Mass/Vol] 9.5 mg/dL 8.2-10.2 [facility] Serum or plasma chloride aby surement (moles/volume)Ordered By: Sammie Gonzalez on 05-01-2022 Chloride [Moles/Vol] 100 mmol/L 95-114 [facility] Serum or plasma glucose kiara urement (mass/volume)Ordered By: Sammie Gonzalez on 05-01-2022 Glucose [Mass/Vol] 96 mg/dL 70-100 [facility] Comment on above: ADA recommended refe rence [...] Cholesterol in HDL [Mass/Vol] 78 mg/dL 35-85 [facility] Comment on above: HDL CHOL ATP-III CLA SSIFICATION Cardiovascular Risk HDL > or equal to 60 mg/dL LOW HDL < 40 mg/dL HIGH HDL CHOL ATP-III CLA SSIFICATION Cardiovascular RiskHDL > or equal to 60 mg/dL LOWHDL < 40 mg/dL HIGH Serum or plasma potassium me asurement (moles/volume)Ordered By: Sammie Gonzalez on 05-01-2022 Potassium [Moles/Vol] 4.2 mmol/L 3.5-5.1 [facility] Serum or plasma sodium measu rement (moles/volume)Ordered By: Sammie Gonzalez on 05-01-2022 Sodium [Moles/Vol] 134 mmol/L 136-146 [facility] Serum or plasma thyroxine (T 4) measurement (mass/volume)Ordered By: Sammie Gonzalez on 05-01-2022 T4 [Mass/Vol] 9.20 ug/dL 5.39-11.82 [facility] Serum or plasma total biliru bin measurement (mass/volume)Ordered By: Sammie Gonzalez on 05-01-2022 Bilirubin [Mass/Vol] 0.4 mg/dL 0.3-1.2 [facility] Serum or plasma total carbon dioxide measurement (moles/volume)Ordered By: Sammie Gonzalez on 05-01-2022 CO2 [Moles/Vol] 24.2 mmol/L 22.0-30.0 [facility] Serum or plasma total choles terol/high density lipoprotein (HDL) cholesterol mass ratOrdered By: Sammie Gonzalez on 05-01-2022 Cholesterol.total/Tali sterol in HDL [Mass ratio] 2.4 {ratio} <5.0 [facility] Serum or plasma urea nitroge n measurement (mass/volume)Ordered By: Sammie Gonzalez on 05-01-2022 Urea nitrogen [Mass/Vol] 14 mg/dL 9-23 [facility] TSH DL <= 0.005 mIU/L QnOrde red By: Sammie Gonzalez on 05-01-2022 TSH Qn 3.07 m[IU]/L 0.45-5.33 [facility] Triglyceride [Mass/volume] i n Serum or PlasmaOrdered By: Sammie Gonzalez on 05-01-2022 Triglyceride [Mass/Vol] 97 mg/dL 35-149 [facility] Comment on above: TRIG ATP III [...] Gonzalez on 05-01-2022 T3RU 25 % 24-39 [facility] Comment on above: Performed at: [facility] [place] [address] [place], [place] [id number] Lining Inserter: Maxim Daniel PhD, Phone: [phone] Performed at: [facility] [address] [place], [place] [id number] Director: Maxim Daniel PhD, Phone: [phone] XR wrist RT 2Von 01-24-2022 XR wrist RT 2V [facility] [employer] Other XR wrist RT 2V [facility] [employer] Other XR wrist RT 2V [address] [place] [address] [employer] Other [place]R [place] 2[place] [address] No rt [employer] Other XR wrist RT 2V XRay Report [employer] Other XR wrist RT 2V Signed [employer] Other XR wrist RT 2V Patient: Kourtney Novak MR#: [id number] [employer] Other XR wrist RT 2V [id number] [employer] Other XR wrist RT 2V : 1975 Acct:[id number] [employer] Other XR wrist RT 2V Age/Sex: 46 / F ADM Date: 01/24/22 [employer] Other XR wrist RT 2V Loc: [facility] Room: Type : [facility] [employer] Other XR wrist RT 2V Attending Dr: Naz Gomes MD [employer] Other XR wrist RT 2V Ordering Provider: Elyssa Gomes MD [employer] Other XR wrist RT 2V Date of Service: 01/24/22 [employer] Other XR wrist RT 2V XR/XR wrist RT 2V: Osteochondrosis of lunate of right wrist [employer] Other XR wrist RT 2V Copies to: Elyssa Gomes MD [employer] Other XR wrist RT 2V Right wrist 01/24/2022. [employer] Other XR wrist RT 2V CLINICAL DATA: Osteochondrosis of lunate of right wrist. [employer] Other XR wrist RT 2V FINDINGS: 2 views of the right wrist were obtained and are compared with a prior study 12/24/2021. [employer] Other XR wrist RT 2V No acute fracture or dislocation is identified. The lunate again appears sclerotic. This finding [employer] Other XR wrist RT 2V has not significantl y changed. No collapse is seen. No soft tissue swelling is visualized. [employer] Other XR wrist RT 2V XR/XR wrist RT 2V [employer] Other XR wrist RT 2V IMPRESSION: Scleroti c lunate, not significantly changed. [employer] Other XR wrist RT 2V Impression dictated by: Brody Marks Jr., M.D.01/24/2022 3:00 PM [employer] Other XR wrist RT 2V Dictation Location: [place] [address] [employer] Other XR wrist RT 2V Transcribed By: GRACIE 01/24/22 1500 [employer] Other XR wrist RT 2V Dictated By: Brody Marks Jr, MD 01/24/22 1454 [employer] Other XR wrist RT 2V Signed By: [employer] Other XR wrist RT 2V 01/24/22 1500 [facility] [employer] Other XR wrist RT min 3V*on 2021 XR wrist RT min 3V* [facility] [employer] Other XR wrist RT min 3V* [facility] [employer] Other XR wrist RT min 3V* [address] [facility] [employer] Other XR wrist RT min 3V* [place] [address] [employer] Other XR wrist RT min 3V* XRay Report Nort [employer] Other XR wrist RT min 3V* Signed [employer] Other XR wrist RT min 3V* Patient: Kourtney Novak MR#: [id number] [place] [employer] Other XR wrist RT min 3V* [id number] [employer] Other XR wrist RT min 3V* : 1975 Acct:[id number] [employer] Other XR wrist RT min 3V* Age/Sex: 46 / F ADM Date: 11/20/21 [employer] Other XR wrist RT min 3V* Loc: [facility] Room: Type : [facility] [employer] Other XR wrist RT min 3V* Attending Dr: Naz oGmes MD [employer] Other XR wrist RT min 3V* Ordering Provider: Elyssa Gomes MD [employer] Other XR wrist RT min 3V* Date of Service: 11/20/21 [employer] Other XR wrist RT min 3V* XR/XR wrist RT min 3V*: Other specified postprocedural [employer] Other XR wrist RT min 3V* states;Osteochondros i s of nayeli [employer] Other XR wrist RT min 3V* Copies to: Elyssa Gomes MD [employer] Other XR wrist RT min 3V* 4 viewsRIGHT wrist plain film [employer] Other XR wrist RT min 3V* COMPARISON:None [employer] Other XR wrist RT min 3V* HISTORY: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 No collapse identified. Calculi metacarpal bones [employer] Other XR wrist RT min 3V* identified. No soft tissue abnormality seen. [employer] Other XR wrist RT min 3V* XR/XR wrist RT min 3V* [employer] Other XR wrist RT min 3V* IMPRESSION:Sclerotic changes of the lunate. Adequate bony alignment. No collapse. [employer] Other XR wrist RT min 3V* Impression dictated by: George Gray M.D.11/20/2021 3:59 PM [employer] Other XR wrist RT min 3V* Dictation Location: [facility]-- [employer] Other XR wrist RT min 3V* Transcribed By: GRACIE 11/20/21 [facility]7 [employer] Other XR wrist RT min 3V* Dictated By: George Gray DO 11/20/21 [facility] [employer] Other XR wrist RT min 3V* Signed By: [employer] Other XR wrist RT min 3V* 11/20/21 1559 [facility] [employer] Other XR wrist RT min 3V*on 2020 XR wrist RT min 3V* [facility] [employer] Other XR wrist RT min 3V* [facility] [employer] Other XR wrist RT min 3V* [address] [place] [address] [employer] Other XR wrist RT min 3V* VIVI[place] [address] [place] [employer] Other XR wrist RT min 3V* XRay Report Nort [employer] Other XR wrist RT min 3V* Signed [employer] Other XR wrist RT min 3V* Patient: Kourtney Novak MR#: [id number] [place] [employer] Other XR wrist RT min 3V* [id number] [employer] Other XR wrist RT min 3V* : 1975 Acct:[id number] [employer] Other XR wrist RT min 3V* Age/Sex: 45 / F ADM Date: 08/28/21 [employer] Other XR wrist RT min 3V* Loc: [facility] Room: Type : [facility] [employer] Other XR wrist RT min 3V* Attending Dr: Naz Gomes MD [employer] Other XR wrist RT min 3V* Ordering Provider: Elyssa Gomes MD [employer] Other XR wrist RT min 3V* Date of Service: 08/28/21 [employer] Other XR wrist RT min 3V* XR/XR wrist RT min 3V*: M92.211 [employer] Other XR wrist RT min 3V* Copies to: Elyssa Gomes MD [employer] Other XR wrist RT min 3V* RIGHT WRIST - 4 views [employer] Other XR wrist RT min 3V* CLINICAL DATA: Right wrist pain and decreased range of motion. No injury. [employer] Other XR wrist RT min 3V* COMPARISON: 11/15/2020 and MRI 11/15/2020 [employer] Other XR wrist RT min 3V* AP, lateral, oblique and ulnar deviation views were obtained. There is no acute fracture or [employer] Other XR wrist RT min 3V* dislocation. Minor sclerosis is again seen at the lunate where there is also subchondral cystic [employer] Other XR wrist RT min 3V* change medially. Thi s is similar to the prior. There is no developing joint space narrowing or [employer] Other XR wrist RT min 3V* hypertrophy. No prominent soft tissue swelling is noted. [employer] Other XR wrist RT min 3V* XR/XR wrist RT min 3V* [employer] Other XR wrist RT min 3V* IMPRESSION: [facility] [employer] Other XR wrist RT min 3V* BONY CHANGES AT THE LUNATE, SIMILAR TO THE COMPARISON. [employer] Other XR wrist RT min 3V* NO ACUTE FINDINGS. [employer] Other XR wrist RT min 3V* Impression dictated by: Trixie Irizarry M.D.08/28/2021 4:42 PM [employer] Other XR wrist RT min 3V* Dictation Location: [place] [address] [employer] Other XR wrist RT min 3V* Transcribed By: GRACIE 08/28/21 1642 [employer] Other XR wrist RT min 3V* Dictated By: Trixie Irizarry MD 08/28/21 1639 [employer] Other XR wrist RT min 3V* Signed By: [employer] Other XR wrist RT min 3V* 08/28/21 1642 No rt [employer] Other XR FOOT 3V AP/LAT/OBL BILon 03-04-2021 [...] No other significant abnormality. 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 Transcribe Date/Time: Mar 04 2021 2:57P Dictated by : TOBI HERRMANN MD This examination was interpreted and the report reviewed and electronically signed by: TOBI HERRMANN MD on Mar 04 2021 2:59PM EST [id number] Normal [facility] Vital Signs Date Time Vital Sign Value Performing Clinician Facility 03-15-2025 12:03-0400 Body mass index (BMI) [Ratio] 40.83 kg/m2 Fellow Appointments Work Phone: [facility] 03-15-2025 12:03-0400 Body weight 111.3 kg Fellow Appointments Work Phone: [facility] Comment on above: with shoes 03-15-2025 12:03-0400 Diastolic blood pressure 79 mm[Hg] Fellow Appointments Work Phone: [facility] Comment on above: notified 03-15-2025 12:03-0400 Heart rate 82 /min Fellow Appointments Work Phone: [facility] 03-15-2025 12:03-0400 Respiratory rate 18 /min Fellow Appointments Work Phone: [facility] 03-15-2025 12:03-0400 SaO2% (BldA) [Mass fraction] 99 % Fellow Appointments Work Phone: [facility] 03-15-2025 12:03-0400 Systolic blood pressure 156 mm[Hg] Fellow Appointments Work Phone: [facility] Comment on above: md notified 03-13-2025 13:17-0400 Body height 165.1 cm Zeinab Rice WHCNP Work Phone: [facility] 03-13-2025 13:17-0400 Body mass index (BMI) [Ratio] 40.77 kg/m2 Zeinab Rice WHCNP Work Phone: [facility] 03-13-2025 13:17-0400 Body weight 111.13 kg Zeinab Rice WHCNP Work Phone: [facility] 03-13-2025 13:17-0400 Diastolic blood pressure 74 mm[Hg] Zeinab Rice WHCNP Work Phone: [facility] 03-13-2025 13:17-0400 Heart rate 76 /min Zeinab Rice WHCNP Work Phone: [facility] 03-13-2025 13:17-0400 Respiratory rate 16 /min Zeinab Rice WHCNP Work Phone: [facility] 03-13-2025 13:17-0400 SaO2% (BldA) [Mass fraction] 97 % Zeinab Rice WHCNP Work Phone: [facility] 03-13-2025 13:17-0400 Systolic blood pressure 126 mm[Hg] Zeinab Rice WHCNP Work Phone: [facility] 03-06-2025 10:11-0400 Body mass index (BMI) [Ratio] 39.95 kg/m2 Mario Alberto Phillips RN [facility] 03-06-2025 10:11-0400 Body temperature 99.19 [degF] Mario Alberto Phillips RN [facility] 03-06-2025 10:11-0400 Body weight 108.9 kg Mario Alberto Phillips RN [facility] 03-06-2025 10:11-0400 Diastolic blood pressure 64 mm[Hg] Mario Alberto Phillips RN [facility] 03-06-2025 10:11-0400 Heart rate 93 /min Mario Alberto Phillips RN [facility] 03-06-2025 10:11-0400 Respiratory rate 18 /min [facility] 03-06-2025 10:11-0400 SaO2% (BldA) [Mass fraction] 100 % Mario Alberto Phillips RN [facility] Comment on above: ra 03-06-2025 10:11-0400 Systolic blood pressure 149 mm[Hg] Mario Alberto Phillips RN [facility] 02-20-2025 15:51-0400 SaO2% (BldA) [Mass fraction] 98 % ERIK LUCY [facility] Comment on above: Order Comment: Specimen Type: ARTERIAL B LOOD SPECIMENOrdering Facility: [facility] Address: [address] [place] [address] Performed By: #### A LLMG ####[facility] [id number] [address] OF [facility] 02-20-2025 13:28-0400 SaO2% (BldA) [Mass fraction] 99 % ERIK PINEDA [facility] Comment on above: Order Comment: Specimen Type: ARTERIAL B LOOD SPECIMENOrdering Facility: [facility] Address: [address] [place] [address] Performed By: #### A LLMG ####[facility] [id number] [place] [id number] [place] 02-14-2025 07:42-0400 Body height 163.8 cm Pacc 2 Work Phone: [facility] 02-14-2025 07:42-0400 Body mass index (BMI) [Ratio] 40.98 kg/m2 Pacc 2 Work Phone: [facility] 02-14-2025 07:42-0400 Body temperature 98.71 [degF] Pacc 2 Work Phone: [facility] 02-14-2025 07:42-0400 Body weight 110 kg Pacc 2 Work Phone: [facility] 02-14-2025 07:42-0400 Diastolic blood pressure 74 mm[Hg] Pacc 2 Work Phone: [facility] 02-14-2025 07:42-0400 Heart rate 80 /min Pacc 2 Work Phone: [facility] 02-14-2025 07:42-0400 Respiratory rate 16 /min Pacc 2 Work Phone: [facility] 02-14-2025 07:42-0400 SaO2% (BldA) [Mass fraction] 96 % Pacc 2 Work Phone: [facility] 02-14-2025 07:42-0400 Systolic blood pressure 114 mm[Hg] Pacc 2 Work Phone: [facility] 12-28-2024 09:34-0400 Body mass index (BMI) [Ratio] 41.06 kg/m2 Zeinab Wood MD Work Phone: [facility] 12-28-2024 09:34-0400 Body weight 110.2 kg Zeinab Wood MD Work Phone: [facility] 12-28-2024 09:34-0400 Diastolic blood pressure 65 mm[Hg] Zeinab Wood MD Work Phone: [facility] 12-28-2024 09:34-0400 Heart rate 109 /min Zeinab Wood MD Work Phone: [facility] 12-28-2024 09:34-0400 Systolic blood pressure 104 mm[Hg] Zeinab Wood MD Work Phone: [facility] 07-13-2024 17:34-0400 Body mass index (BMI) [Ratio] 40.77 kg/m2 Estevan Polanco TICKET DISPATCHER Work Phone: [facility] 07-13-2024 17:34-0400 Body temperature 98.71 [degF] Estevan Polanco TICKET DISPATCHER Work Phone: [facility] 07-13-2024 17:34-0400 Body weight 111.13 kg Estevan Polanco TICKET DISPATCHER Work Phone: [facility] 07-13-2024 17:34-0400 Diastolic blood pressure 88 mm[Hg] Estevan Polanco TICKET DISPATCHER Work Phone: [facility] 07-13-2024 17:34-0400 Heart rate 87 /min Estevan Polanco TICKET DISPATCHER Work Phone: [facility] 07-13-2024 17:34-0400 SaO2% (BldA) [Mass fraction] 99 % Estevan Polanco TICKET DISPATCHER Work Phone: [facility] 07-13-2024 17:34-0400 Systolic blood pressure 124 mm[Hg] Estevan Polanco TICKET DISPATCHER Work Phone: [facility] 05-30-2024 09:38-0400 Body mass index (BMI) [Ratio] 40.61 kg/m2 Zeinab Wood MD Work Phone: [facility] 05-30-2024 09:38-0400 Body weight 109 kg Zeinab Wood MD Work Phone: [facility] 05-30-2024 09:38-0400 Diastolic blood pressure 72 mm[Hg] Zeinab Wood MD Work Phone: [facility] 05-30-2024 09:38-0400 Heart rate 87 /min Zeinab Wood MD Work Phone: [facility] 05-30-2024 09:38-0400 Respiratory rate 18 /min Zeinab Wood MD Work Phone: [facility] 05-30-2024 09:38-0400 Systolic blood pressure 109 mm[Hg] Zeinab Wood MD Work Phone: [facility] 06-30-2023 10:52-0400 Body height 164 cm Erik Pineda MD Work Phone: [facility] 06-30-2023 10:52-0400 Body temperature 98.71 [degF] Erik Pineda MD Work Phone: [facility] 06-30-2023 10:52-0400 Body weight 101.88 kg Erik Pineda MD Work Phone: [facility] 06-30-2023 10:52-0400 Diastolic blood pressure 58 mm[Hg] Erik Pineda MD Work Phone: [facility] 06-30-2023 10:52-0400 Heart rate 103 /min Erik Pineda MD Work Phone: [facility] 06-30-2023 10:52-0400 Respiratory rate 18 /min Erik Pineda MD Work Phone: [facility] 06-30-2023 10:52-0400 SaO2% (BldA) [Mass fraction] 97 % Erik Pineda MD Work Phone: [facility] 06-30-2023 10:52-0400 Systolic blood pressure 117 mm[Hg] Erik Pineda MD Work Phone: [facility] 05-06-2023 07:10-0400 Body height 165.1 cm MD Sammie Gonzalez Work Phone: [facility] 05-06-2023 07:10-0400 Body weight 102.05 kg MD Sammie Gonzalez Work Phone: [facility] 03-31-2023 09:30-0400 Body height 165.1 cm Russell Shields Other [employer] Other 03-31-2023 09:30-0400 Body mass index (BMI) [Ratio] 36.94 kg/m2 Russell Shields Other [employer] Other 03-31-2023 09:30-0400 Body weight 100.7 kg Russell Shields Other [employer] Other 03-31-2023 09:30-0400 Diastolic blood pressure 68 mm[Hg] Russell Shields Other [employer] Other 03-31-2023 09:30-0400 Systolic blood pressure 109 mm[Hg] Russell Shields Other [employer] Other 09-29-2022 15:28-0500 Body weight 114.08 kg Zeinab Wood MD Work Phone: [facility] 09-29-2022 15:28-0500 Diastolic blood pressure 56 mm[Hg] Zeinab Wood MD Work Phone: [facility] 09-29-2022 15:28-0500 Heart rate 99 /min Zeinab Wood MD Work Phone: [facility] 09-29-2022 15:28-0500 Systolic blood pressure 115 mm[Hg] Zeinab Wood MD Work Phone: [facility] 07-17-2022 15:45-0400 Body height 165.1 cm Beti Bowles Other [employer] Other 03-31-2022 14:00-0400 Body height 165.1 cm Beti Bowles Other [employer] Other 03-31-2022 14:00-0400 Body mass index (BMI) [Ratio] 39.6 kg/m2 Beti Bowles Other [employer] Other 03-31-2022 14:00-0400 Body weight 107.96 kg Beti Bowles Other [employer] Other 01-27-2022 14:15-0400 Body height 165.1 cm Beti Bowles Other [employer] Other 01-27-2022 14:15-0400 Body mass index (BMI) [Ratio] 39.93 kg/m2 Beti Bowles Other [employer] Other 01-27-2022 14:15-0400 Body weight 108.86 kg Beti Bowles Other [place] [employer] Other 01-20-2022 11:03-0400 Body height 165.1 cm Zeinab Wood MD Work Phone: [facility] 01-20-2022 11:03-0400 Body weight 104.06 kg Zeinab Wood MD Work Phone: [facility] 01-20-2022 11:03-0400 Diastolic blood pressure 67 mm[Hg] Zeinab Wood MD Work Phone: [facility] 01-20-2022 11:03-0400 Heart rate 108 /min Zeinab Wood MD Work Phone: [facility] 01-20-2022 11:03-0400 Systolic blood pressure 113 mm[Hg] Zeinab Wood MD Work Phone: [facility] 11-20-2021 16:15-0500 Body height 165.1 cm Elyssa Calvey Other [employer] Other 11-20-2021 16:15-0500 Body mass index (BMI) [Ratio] 39.93 kg/m2 Elyssa Calvey Other [employer] Other 11-20-2021 16:15-0500 Body weight 108.86 kg Elyssa Calvey Other [employer] Other 10-08-2021 15:15-0500 Body height 165.1 cm Elyssa Calvey Other [employer] Other 10-08-2021 15:15-0500 Body mass index (BMI) [Ratio] 39.43 kg/m2 Elyssa Calvey Other [employer] Other 10-08-2021 15:15-0500 Body weight 107.5 kg Elyssa Gomes Other [employer] Other 08-28-2021 16:15-0500 Body height 165.1 cm Elyssa Gomes Other [employer] Other 08-28-2021 16:15-0500 Body mass index (BMI) [Ratio] 38.77 kg/m2 Elyssa Gomes Other [employer] Other 08-28-2021 16:15-0500 Body weight 105.69 kg Elyssa Gomes Other [employer] Other Encounters Encounter Date Encounter Type Care Provider Facility Start: 04-25-2025 End: 04-26-2025 Refill Zeinab Wood MD Work Phone: Rheumatology Comment on above: Refill Request Start: 04-24-2025 End: 04-24-2025 ambulatory Ridge Hollingsworth MD Facility:[facility] Start: 04-12-2025 End: 04-12-2025 Telemedicine consultation with patient Rachele Fenton APRN.PIE CUTTER Work Phone: Neurology Start: 04-12-2025 End: 04-12-2025 ambulatory Rachele Fenton APRN.PIE CUTTER Work Phone: Neurology Comment on above: Meningioma (HCC) (Pr imary Dx); Chronic daily headache Start: 03-29-2025 End: 03-29-2025 Telemedicine consultation with patient Erik Pineda MD Work Phone: [facility] [place] Start: 03-29-2025 End: 03-29-2025 ambulatory Erik Pineda MD Work Phone: [facility] [place] Comment on above: Intracranial meningi sera (HCC) (Primary Dx); Postprocedural state; Dizziness and giddiness Start: 03-26-2025 End: 03-27-2025 ambulatory Erik Pineda MD Work Phone: [facility] Comment on above: Incision Start: 03-22-2025 End: 03-22-2025 ambulatory Sammie Gonzalez MD Work Phone: [facility] Work Phone: Start: 03-22-2025 End: 03-22-2025 Patient encounter procedure Elyssa Gomes MD -[facility] Work Phone: Start: 03-20-2025 End: 03-20-2025 Refill Izabela Patton MD Work Phone: [facility] Comment on above: Refill Request Start: 03-15-2025 End: 03-15-2025 Refill Izabela Patton MD Work Phone: [facility] Comment on above: Refill Request S/P craniotomy (Prim kt Dx) Start: 03-13-2025 End: 05-13-2025 Follow-up encounter Zeinab Wood MD Work Phone: Rheumatology Start: 03-13-2025 End: 03-13-2025 Office outpatient visit 10 minutes Zeinab Mckinney [facility] Work Phone: [facility] Start: 03-13-2025 ambulatory Zeinab morley [facility] Start: 03-12-2025 End: 03-13-2025 Refill Rachele Fenton APRN.PIE CUTTER Work Phone: Neurology [facility] Comment on above: Refill Request Start: 03-08-2025 End: 03-08-2025 Telephone encounter Mario Alberto Phillips RN [facility] [place] Comment on above: Surgical Followup Start: 03-06-2025 End: 03-06-2025 Refill Zeinab Wood MD Work Phone: Rheumatology Comment on above: Refill Request Start: 03-06-2025 End: 03-06-2025 Nursing evaluation of patient and report Mario Alberto Phillips RN [facility] [place] Comment on above: S/P craniotomy (Prim kt Dx); Intracranial meningioma (HCC); Postop check Start: 03-06-2025 End: 03-06-2025 ambulatory SAMMIE GONZALEZ Facility:[facility] Start: 03-02-2025 End: 03-02-2025 Admission to same day surgery center Heather Moy MARILEE.PIE CUTTER Work Phone: Neurosurgery Comment on above: Benign neoplasm of m eninges (HCC) (Primary Dx) Start: 03-02-2025 End: 03-02-2025 Telemedicine consultation with patient Heather Moy MARILEE.PIE CUTTER Work Phone: Neurosurgery Start: 03-02-2025 End: 03-02-2025 ambulatory [facility] Facility:[facility] Start: 02-24-2025 End: 02-27-2025 Refill Zeinab Wood MD Work Phone: [facility] Comment on above: Refill Request Start: 02-23-2025 End: 02-23-2025 Telephone encounter Mario Alberto Phillips RN [facility] [place] Comment on above: Surgical Followup Start: 02-20-2025 End: 02-22-2025 Evaluation and management of inpatient SAMMIE GONZALEZ Facility:[facility] Start: 02-17-2025 End: 02-17-2025 Telephone encounter Mario Alberto Phillips RN [facility] [place] Comment on above: PreOp Call Start: 02-15-2025 End: 02-15-2025 Telemedicine consultation with patient Erik Pineda MD Work Phone: [facility] Start: 02-15-2025 End: 02-17-2025 ambulatory Erik Pineda MD Work Phone: [facility] [place] Comment on above: Intracranial meningi sera (HCC) (Primary Dx) Consent Start: 02-15-2025 End: 02-15-2025 Telephone encounter Mehul Martin APRN.PIE CUTTER Work Phone: Pre Anesthesia Comment on above: Patient Update Start: 02-15-2025 End: 02-15-2025 ambulatory SAMMIE Ivis JAKUBPiedad Facility:[facility] Start: 02-15-2025 Encounter for other preprocedural examination [facility] Start: 02-14-2025 Encounter for other preprocedural examination [facility] Start: 02-14-2025 End: 02-14-2025 Patient encounter status Mri (1.5t) Work Phone: [facility] Start: 02-14-2025 End: 02-14-2025 Subsequent hospital visit by physician Mri [facility] Alyssa (1.5t) Work Phone: Radiology Comment on above: Intracranial meningi sera (HCC) [D32.0] Start: 02-14-2025 End: 02-14-2025 Admission to establishment [facility] [place] [facility] Work Phone: Pre Anesthesia Start: 02-14-2025 End: 02-14-2025 Anesthesia consultation [facility] [place] [facility] Work Phone: Pre Anesthesia Comment on above: Pre-op evaluation (P rimary Dx); Anxiety; Chronic obstructive pulmonary disease, unspecified [...] index (BMI) of 40.0 to 44.9 in adult; Inflammatory arthritis Start: 02-14-2025 End: 02-14-2025 Patient encounter status [facility] [place] [facility] Work Phone: [facility] Start: 02-14-2025 End: 02-14-2025 Preprocedural examination done [facility] [place] [facility] Work Phone: [facility] Work Phone: Start: 02-14-2025 End: 02-14-2025 ambulatory ZEINAB WOOD Facility:[facility] Start: 02-10-2025 End: 02-10-2025 Patient encounter procedure Sammie Gonzalez MD Work Phone: [facility] [place] Work Phone: Start: 02-10-2025 End: 02-10-2025 ambulatory Sammie Gonzalez MD Work Phone: [facility] Work Phone: Start: 02-01-2025 End: 02-01-2025 Patient encounter procedure Sammie Gonzalez MD Work Phone: [facility] Physician [facility] Work Phone: Start: 01-23-2025 End: 01-26-2025 Refill Mohammad Hamdan FURNACE CHARGING MACHINE OPERATOR.PIE CUTTER Work Phone: Neurology [facility] Comment on above: Med Change Request Start: 01-06-2025 End: 01-06-2025 ambulatory SAMMIE GONZALEZ Facility:[facility] Start: 12-29-2024 End: 12-29-2024 Refill Mohammad Hamdan FURNACE CHARGING MACHINE OPERATOR.PIE CUTTER Work Phone: Neurology [facility] Comment on above: Refill Request Start: 12-28-2024 End: 12-28-2024 Office outpatient visit 25 minutes Zeinab Wood MD Work Phone: Rheumatology Comment on above: Inflammatory arthrit is (Primary Dx); Fibromyalgia; Encounter for medication monitoring Start: 12-28-2024 End: 12-28-2024 ambulatory ZEINAB WOOD Facility:[facility] Start: 12-27-2024 End: 12-27-2024 ambulatory Sammie Gonzalez MD Work Phone: [facility] Work Phone: Start: 12-27-2024 End: 12-27-2024 Patient encounter procedure Sammie Gonzalez MD Work Phone: [facility] [address] [facility] Physician [facility] Work Phone: Start: 12-13-2024 End: 12-13-2024 Patient encounter procedure Sammie Gonzalez MD Work Phone: [facility] Start: 12-13-2024 End: 12-13-2024 ambulatory Sammie Gonzalez MD Work Phone: [facility] Work Phone: Start: 12-05-2024 End: 12-05-2024 Telephone encounter Mario Alberto Phillips RN [facility] Comment on above: Care Coordination (M yCklaust Follow up - Surgery Planning ) Start: 11-03-2024 End: 11-03-2024 Patient encounter procedure Sammie Gonzalez MD Work Phone: [facility] [address] [facility] Physician [facility] Work Phone: Start: 11-03-2024 End: 11-03-2024 ambulatory Sammie Gonzalez MD Work Phone: [facility] Work Phone: Start: 10-10-2024 End: 10-10-2024 Telephone encounter Zeinab Wood MD Work Phone: Rheumatology Comment on above: Edging Machine Feeder - O ther (Lab order problem/) Refill Request Start: 09-27-2024 End: 09-27-2024 ambulatory Sammie Gonzalez MD Work Phone: [facility] Work Phone: Start: 09-27-2024 End: 09-27-2024 Patient encounter procedure Sammie Gonzalez MD Work Phone: [facility] [address] [facility] Physician [facility] Work Phone: Start: 09-20-2024 End: 09-21-2024 Telephone encounter Zeinab Wood MD Work Phone: Rheumatology Comment on above: Results (Lab results from [facility]) Start: 09-20-2024 End: 09-20-2024 Patient encounter procedure Sammie Gonzalez MD Work Phone: [facility] Start: 09-20-2024 End: 09-20-2024 ambulatory Sammie Gonzalez MD Work Phone: [facility] Work Phone: Start: 09-16-2024 End: 09-16-2024 Patient encounter procedure Sammie Gonzalez MD Work Phone: [facility] Work Phone: Start: 09-16-2024 End: 09-16-2024 ambulatory Sammie Gonzalez MD Work Phone: [facility] Work Phone: Start: 09-09-2024 End: 09-15-2024 ambulatory Zeinab Wood MD Work Phone: Rheumatology Start: 09-09-2024 End: 09-15-2024 Patient encounter procedure Zeinab Wood MD Work Phone: Rheumatology Comment on above: Labs Start: 08-28-2024 End: 09-09-2024 Refill Zeinab Wood MD Work Phone: Rheumatology Comment on above: Refill Request Start: 08-01-2024 End: 08-01-2024 ambulatory [facility] Start: 07-18-2024 End: 07-18-2024 ambulatory Ridge Hollingsworth MD Facility: [facility] Start: 07-13-2024 End: 07-13-2024 ambulatory ESTEVAN POLANCO Not Available Start: 07-13-2024 End: 07-13-2024 Office outpatient visit 25 minutes Estevan Polanco TICKET DISPATCHER Work Phone: [facility] Comment on above: Tooth infection (Ingrid cezar Dx) Start: 07-04-2024 End: 07-04-2024 ambulatory [facility] Start: 06-22-2024 End: 06-22-2024 Patient encounter procedure MD Sammie Gonzalez Work Phone: [facility] Start: 06-22-2024 End: 06-22-2024 ambulatory MD Sammie Gonzalez Work Phone: [facility] Work Phone: Start: 06-21-2024 End: 06-21-2024 ambulatory MD Sammie Gonzalez Work Phone: [facility] Work Phone: Start: 06-21-2024 End: 06-21-2024 Patient encounter procedure MD Sammie Gonzalez Work Phone: [facility] [address] [facility] Work Phone: Start: 06-20-2024 End: 06-20-2024 ambulatory Ridge Hollingsworth MD Facility: [employer] Start: 05-30-2024 End: 05-30-2024 ambulatory ZEINAB WOOD Facility:[facility] Start: 05-30-2024 End: 05-30-2024 Patient encounter procedure Zeinab Wood MD Work Phone: Rheumatology Comment on above: Inflammatory arthrit is (Primary Dx); Fibromyalgia; Medication monitoring encounter Start: 05-25-2024 End: 05-26-2024 Refill Rachele Fenton APRN.CNP Work Phone: Neurology [facility] Comment on above: Refill Request Start: 05-12-2024 End: 05-12-2024 Patient encounter procedure MD Sammie Gonzalez Work Phone: [facility] Start: 05-12-2024 End: 05-12-2024 ambulatory MD Sammie Gonzalez Work Phone: [facility] Work Phone: Start: 05-09-2024 End: 05-09-2024 ambulatory Ridge Hollingsworth MD Facility:[facility] Start: 03-25-2024 Refill Zeinab Wood MD Work Phone: Rheumatology Comment on above: Refill Request Start: 03-21-2024 ambulatory Rachele Mendes n FURNACE CHARGING MACHINE OPERATOR.PIE CUTTER Work Phone: Neurology Headache [facility] Comment on above: Robaxin Start: 03-18-2024 ambulatory Rachele salazar FURNACE CHARGING MACHINE OPERATOR.PIE CUTTER Work Phone: Neurology Headache [facility] Comment on above: Insurance Start: 03-08-2024 Telephone encounter Erik martinez MD Work Phone: [facility] Comment on above: epidural steroid inj ection Start: 03-04-2024 End: 03-04-2024 ambulatory MD Sammie Gonzalez Work Phone: [facility] Work Phone: Start: 03-04-2024 End: 03-04-2024 Patient encounter procedure MD Sammie Gonzalez Work Phone: [facility] [address] [facility] Work Phone: Start: 02-15-2024 End: 02-15-2024 ambulatory MD Sammie Gonzalez Work Phone: [facility] Work Phone: Start: 02-15-2024 End: 02-15-2024 Patient encounter procedure MD Sammie Gonzalez Work Phone: [facility] [place] Work Phone: Start: 02-10-2024 Telephone encounter Rachele acevedo FURNACE CHARGING MACHINE OPERATOR.PIE CUTTER Work Phone: Neurology Comment on above: Insurance Authorizat ion; Aurelio [place] - Medicare / [employer]. Start: 02-09-2024 End: 02-09-2024 ambulatory MD Sammie Gonzalez Work Phone: [facility] Work Phone: Start: 02-09-2024 End: 02-09-2024 Patient encounter procedure MD Sammie Gonzalez Work Phone: [facility] [address] Work Phone: Start: 02-05-2024 End: 02-05-2024 ambulatory Rachele Fenton FURNACE CHARGING MACHINE OPERATOR.PIE CUTTER Work Phone: Neurology [facility] Comment on above: Meningioma (HCC) (Pr imary Dx); Chronic daily headache Start: 02-05-2024 End: 02-05-2024 Telemedicine consultation with patient Rachele Fenton FURNACE CHARGING MACHINE OPERATOR.PIE CUTTER Work Phone: Neurology [facility] Start: 02-02-2024 End: 02-02-2024 ambulatory Fellow Appointments Work Phone: [facility] Comment on above: Intracranial meningi sera (HCC) (Primary Dx) Start: 02-02-2024 End: 02-02-2024 Telemedicine consultation with patient Fellow Appointments Work Phone: [facility] Start: 02-02-2024 Telephone encounter Mario Alberto Phillips RN [facility] Comment on above: Appointment Start: 02-01-2024 End: 02-01-2024 ambulatory YOLA CARABALLO Not Available Start: 01-30-2024 Refill Fahad Corey MD Work Phone: [facility] Comment on above: Refill Request Start: 01-29-2024 ambulatory ERIK PINEDA Facilit y:[facility] Start: 01-29-2024 End: 01-29-2024 Subsequent hospital visit by physician [facility] Work Phone: [facility] Comment on above: 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 eninges (HCC) [D32.9] Start: 01-27-2024 Refill Zeinab Wood MD Work Phone: Rheumatology Comment on above: Refill Request Start: 01-26-2024 End: 01-26-2024 Patient encounter procedure MD Sammie Gonzalez Work Phone: [facility] [address] [facility] Work Phone: Start: 01-19-2024 Telephone encounter Mario Alberto Phillips RN [facility] Comment on above: Schedule Surgery ([place] rgery Planning ) Start: 01-08-2024 Telephone encounter Zeinab kenyon MD Work Phone: Rheumatology Comment on above: Results Start: 01-08-2024 End: 01-08-2024 ambulatory MD Sammie Gonzalez Work Phone: [facility] Work Phone: Start: 01-08-2024 End: 01-08-2024 Patient encounter procedure MD Sammie Gonzalez Work Phone: [facility] Start: 01-05-2024 Telephone encounter Mario Alberto Phillips RN [facility] Comment on above: Schedule Surgery Start: 01-04-2024 Telephone encounter Zeinab kenyon MD Work Phone: Rheumatology Comment on above: Lab Orders/FAX Start: 12-20-2023 End: 12-20-2023 ambulatory WANDY PHILLIPS Not Available Start: 11-29-2023 Refill Zeinab Wood MD Work Phone: Rheumatology Comment on above: Refill Request Start: 11-25-2023 End: 11-25-2023 Patient encounter procedure MD Sammie Gonzalez Work Phone: [facility] [address] [facility] Work Phone: Start: 11-12-2023 Refill Zeinab Wood MD Work Phone: Rheumatology Comment on above: Refill Request Start: 11-11-2023 Telephone encounter Mario Alberto Phillips RN [facility] Comment on above: Care Coordination (f ollow up) Start: 11-11-2023 End: 11-11-2023 Patient encounter procedure MD Sammie Gonzalez Work Phone: [facility] Start: 11-10-2023 Refill Zeinab Wood MD Work Phone: Rheumatology Comment on above: Refill Request Start: 11-09-2023 Refill Zeinab Wood MD Work Phone: Rheumatology Comment on above: Refill Request Start: 07-05-2023 Admission to [facility] center Erik Pineda MD Work Phone: [facility] [place] Comment on above: Surgery Start: 07-05-2023 ambulatory Erik castañeda MD Work Phone: [facility] Start: 07-02-2023 Telephone encounter Erik martinez MD Work Phone: [facility] Comment on above: Patient Update (Disc uss Surgery March 2024) Start: 06-30-2023 End: 06-30-2023 Patient encounter procedure Erik Pineda MD Work Phone: [facility] Comment on above: Intracranial meningi sera (HCC) (Primary Dx) Start: 06-26-2023 End: 06-26-2023 Office outpatient new 45 minutes Fahad Corey MD Work Phone: Neurology Headache [facility] Comment on above: Medication overuse h eadache (Primary Dx); Brain mass; Meningioma (HCC); Chronic daily headache Start: 05-22-2023 End: 05-22-2023 ambulatory MD Sammie Gonzalez Work Phone: [facility] Work Phone: Start: 05-22-2023 End: 05-22-2023 Patient encounter procedure MD Sammie Gonzalez Work Phone: [facility] Start: 05-13-2023 Telephone encounter Moira thayer APRN.PIE CUTTER Work Phone: [facility] Comment on above: TRIAGE Start: 05-06-2023 End: 05-06-2023 ambulatory MD Sammie Gonzalez Work Phone: [facility] Work Phone: Start: 05-06-2023 End: 05-06-2023 Patient encounter procedure MD Sammie Gonzalez Work Phone: [facility] [place] Work Phone: Start: 04-29-2023 End: 04-29-2023 ambulatory MD Sammie Gonzalez Work Phone: [facility] Work Phone: Start: 04-29-2023 End: 04-29-2023 Patient encounter procedure MD Sammie Gonzalez Work Phone: [facility] Work Phone: Start: 04-15-2023 End: 04-15-2023 ambulatory MD Sammie Gonzalez Work Phone: [facility] Work Phone: Start: 04-15-2023 End: 04-15-2023 Patient encounter procedure MD Sammie Gonzalez Work Phone: [facility] Start: 04-13-2023 Refill Zeinab Wood MD Work Phone: Rheumatology Comment on above: Refill Request Start: 04-13-2023 Refill Zeinab Wood MD Work Phone: Rheumatology Comment on above: Refill Request Start: 04-06-2023 End: 04-06-2023 Patient encounter procedure MD Sammie Gonzalez Work Phone: [facility]Nuc [facility] [place] Work Phone: Start: 03-31-2023 End: 03-31-2023 ambulatory Russell Shields Other [employer] Other Start: 03-31-2023 Patient encounter procedure Russell Shields [facility] Start: 03-07-2023 Refill Zeinab Wood MD Work Phone: Rheumatology Comment on above: Refill Request Start: 01-18-2023 Refill Zeinab Wood MD Work Phone: Rheumatology Comment on above: Refill Request Start: 12-17-2022 End: 12-17-2022 ambulatory Elyssa Gomes Other [facility] [employer] Other Start: 12-17-2022 Office outpatient visit 15 minutes Elyssa Mireya [facility] Start: 12-11-2022 ambulatory Zeinab Wood MD [...] encounter procedure MD Sammie Gonzalez Work Phone: [facility] Start: 09-24-2022 End: 09-24-2022 ambulatory MD Sammie Gonzalez Work Phone: [facility] Work Phone: Start: 09-24-2022 Office outpatient visit 15 minutes Elyssa Mireya [facility] Start: 08-05-2022 Office outpatient visit 15 minutes Elyssa Gomes [facility] Start: 08-05-2022 End: 08-05-2022 ambulatory MD Sammie Gonzalez Work Phone: [facility] Work Phone: Start: 08-05-2022 End: 08-05-2022 Patient encounter procedure MD Sammie Gonzalez Work Phone: [facility] Start: 07-29-2022 End: 07-29-2022 ambulatory MD Sammie Gonzalez Work Phone: [facility] Work Phone: Start: 07-29-2022 End: 07-29-2022 Patient encounter procedure MD Sammie Meyer Phone: [facility] Start: 07-17-2022 End: 07-17-2022 ambulatory Beti Bowles Other [employer] Other Start: 07-17-2022 Office outpatient visit 15 minutes Beti Bowles [facility] Start: 06-25-2022 End: 06-25-2022 ambulatory Beti Bowles Other [employer] Other Start: 06-25-2022 Office outpatient visit 15 minutes Beti Bowles [facility] Start: 05-10-[address] SAMMIE GONZALEZ Facility : Start: 05-06-2022 End: 05-06-2022 Patient encounter procedure MD Sammie Meyer Phone: [facility] Start: 05-01-2022 End: 05-01-2022 Patient encounter procedure MD Sammie Meyer Phone: [facility] Start: 03-31-2022 End: 03-31-2022 ambulatory Beti Bowles Other [employer] Other Start: 03-31-2022 Office outpatient visit 15 minutes Beti Bowles [facility] Start: 03-21-2022 End: 03-21-2022 Discharged Recurring MD Sammie Meyer Phone: [facility] [place] Start: 01-27-2022 End: 01-27-2022 ambulatory Beti Bowles Other [employer] Other Start: 01-27-2022 Office outpatient visit 15 minutes Beti Bowles [facility] Start: 01-24-2022 End: 01-24-2022 ambulatory Elyssa Gomes Other [employer] Other Start: 01-24-2022 Office outpatient visit 15 minutes Elyssa Calvey [facility] Start: 01-20-2022 End: 01-20-2022 ambulatory Beti Jelena Other [employer] Other Start: 01-20-2022 Office outpatient visit 15 minutes Beti Jelena [facility] Start: 01-20-2022 End: 01-20-2022 Patient encounter procedure Zeinab Wood MD Work Phone: Rheumatology Comment on above: Inflammatory arthrit is (Primary Dx); Myalgia Start: 12-24-2021 End: 12-24-2021 ambulatory Elyssa Gomes Other [employer] Other Start: 12-24-2021 Postop follow up vis it related to original px Elyssa Calvey [facility] Start: 12-19-2021 End: 12-19-2021 ambulatory Beti Jelena Other [employer] Other Start: 12-19-2021 Telephone encounter Beti Jelena [facility] Start: 12-02-2021 End: 12-02-2021 ambulatory Beti Bowles Other [employer] Other Start: 12-02-2021 Office outpatient visit 15 minutes Beti Jelena [facility] Start: 11-20-2021 End: 11-20-2021 ambulatory Elyssa Calvmary Other [employer] Other Start: 11-20-2021 Postop follow up vis it related to original px Elyssa Calvey [facility] Start: 10-08-2021 End: 10-08-2021 ambulatory Elyssa Calvey Other [employer] Other Start: 10-08-2021 Office outpatient visit 25 minutes Elyssamaxine Gomes [facility] Start: 08-28-2021 End: 08-28-2021 ambulatory Elyssamaxine Gomes Other [employer] Other Start: 08-28-2021 Office outpatient visit 25 minutes Elyssamaxine Gomes [facility] Start: 08-12-2021 End: 08-12-2021 ambulatory Elyssamaxine Gomes Other [employer] Other Start: 08-12-2021 Telephone encounter Elyssa Mireya [facility] Start: 06-18-2021 Office outpatient visit 15 minutes Elyssa Gomes [facility] Start: 06-05-2021 Office outpatient visit 15 minutes Beti Bowles [facility] Start: 05-11-2017 End: 05-12-2017 Ambulatory DEFAULT PHYSICIAN Facility:[facility] Procedures Date Procedure Procedure Detail Performing Clinician Start: 03-13-2025 End: 03-13-2025 Documentation of current medications Zeinab Mckinnye WHCNP Work Phone: Start: 03-13-2025 End: 03-13-2025 Medroxyprogesterone acetate Zeinab Mckinney W HCNP Work Phone: Start: 02-14-2025 Mri brain brain stem w/o w/contrast material Erik Pineda MD Work Phone: Start: 02-14-2025 Antibody screen ERIK CMKEON Comment on above: Order Comment: Speci men Type: BLOOD SPECIMENOrdering Facility: [facility] Address: [address] [place] [address] Performed By: #### T [id number] ####CC MAIN BLOOD BANKCLIA [id number] [place] [address] [place] Start: 02-10-2025 Ultrasonography of b ilateral kidneys Sammie Gonzalez MD Work Phone: Start: 12-27-2024 Plain X-ray of right wrist Sammie Hopiedad MD Work Phone: Start: 11-03-2024 Plain X-ray of left shoulder Sammie Gonzalez MD Work Phone: Start: 09-16-2024 Screening mammograph y of bilateral breasts Sammie Gonzalez MD Work Phone: Start: 02-15-2024 US scan of thyroid MD Macrina Gonzalez Work Phone: Start: 02-09-2024 XR pre/post mri xray MD Sammie Gonzalez Work Phone: Start: 02-09-2024 MR lumbar spine wo con MD Sammie Gonzalez Work Phone: Start: 02-09-2024 MRI of cervical spin e without contrast MD Sammie Gonzalez Work Phone: Start: 05-06-2023 MRI of head MD Sammie Gonzalez Work Phone: Start: 04-29-2023 End: 04-29-2023 Screening mammography of bilateral breasts MD Sammie Gonzalez Work [...] Treatment Date Care Activity Detail Author Start: 08-17-2025 Hemoglobin A1c measurement HbA1C [facility] Start: 06-29-2025 End: 06-29-2025 Patient encounter procedure 06/29/2025 1:40 PM EDT Office Visit Rheumatology [address] [place] [address] Zeinab Wood MD [address] [address] 6 month follow up Rheumatology Comment on above: 6 month follow up Start: 06-27-2025 [facility] Work Phone: Start: 06-22-2025 End: 06-22-2025 Patient encounter procedure 06/22/2025 2:20 PM EDT Office Visit Rheumatology [address] [place] [address] Zeinab Wood MD [address] [address] 6 month follow up Rheumatology Comment on above: 6 month follow up Start: 05-24-2025 [facility] Work Phone: Start: 05-15-2025 Influenza vaccination [facility] Start: 04-12-2025 End: 04-12-2025 ambulatory 04/12/2025 7:00 AM EDT [facility] Neurology [address] [place] [address] Rachele Fenton APRN.PIE CUTTER [address] [place] [address] Tension headaches Neurology Comment on above: Tension headaches Start: 03-29-2025 End: 03-29-2025 ambulatory 03/29/2025 10:30 AM EDT [facility] [address] [place] [address] Erik Pineda MD [address] [place] [address] postop [facility] Comment on above: postop Start: 03-13-2025 [facility] Work Phone: Start: 03-06-2025 End: 03-06-2025 Nursing evaluation of patient and report 03/06/2025 10:30 AM EDT Nurse Visit [facility] [address] [place] [address] Mario Alberto Phillips, RN [address] [place] [address] postop [facility] Comment on above: postop Start: 03-02-2025 End: 03-02-2025 Admission to same day surgery center 03/02/2025 1:00 PM EDT [facility] Neurosurgery [address] [address] Heather Moy, FURNACE CHARGING MACHINE OPERATOR.PIE CUTTER [address] [place] [address] Surgical Pathology discussion Neurosurgery Comment on above: Surgical Pathology discussion Start: 02-20-2025 End: 02-20-2025 Admission to same day surgery center 02/20/2025 12:45 PM EDT - 02/20/2025 6:45 PM EDT Surgery Admitting [address] [place] [address] Erik Pineda MD [address] [place] [address] ORBITOCRANIAL TO ANT CRAN FOSSA W/ SUPRAORB RIDGE OSTEOTOMY & ELEV FRONT&TEMP LOBE Admitting Comment on above: ORBITOCRANIAL TO ANT CRAN FOSSA W/ SUPRA ORB RIDGE OSTEOTOMY & ELEV FRONT&TEMP LOBE Start: 02-20-2025 End: 02-20-2025 Orbitocranial ant cranial fossa w/o orbit exntj ORBITOCRANIAL TO ANT CRAN FOSSA W/ SUPRAORB RIDGE OSTEOTOMY & ELEV FRONT&TEMP LOBE Intracranial meningioma (HCC) Preop testing 02/20/2025 12:45 PM EDT [facility] Start: 02-20-2025 End: 02-20-2025 Rescj/exc les base ant crnl fossa indrl w/wo grf RESECTION LESION BASE OF ANTERIOR CRANIAL FOSSA INTRADURAL W/ DURAL REPAIR Intracranial meningioma (HCC) Preop testing 02/20/2025 12:45 PM EDT [facility] Start: 02-20-2025 Subsequent hospital visit by physician 02/20/2025 12:45 PM EDT Hospital Encounter Admitting [address] [place] [address] Erik Pined[facility] MD [address] [facility] [place] [address] Intracranial meningioma (HCC) [D32.0], Preop testing [Z01.818] Admitting Comment on above: Intracranial meningioma (HCC) [D32.0], P reop testing [Z01.818] Start: 02-20-2025 End: 02-20-2025 Admission to same day surgery center 02/20/2025 7:30 AM EDT - 02/20/2025 1:30 PM EDT Surgery Admitting [address] [place] [id number] Erik Pineda MD [address] [place] [id number] ORBITOCRANIAL TO ANT CRAN FOSSA W/ SUPRAORB RIDGE OSTEOTOMY & ELEV FRONT&TEMP LOBE Admitting Comment on above: ORBITOCRANIAL TO ANT CRAN FOSSA W/ SUPRA ORB RIDGE OSTEOTOMY & ELEV FRONT&TEMP LOBE Start: 02-20-2025 End: 02-20-2025 Orbitocranial ant cranial fossa w/o orbit exntj ORBITOCRANIAL TO ANT CRAN FOSSA W/ SUPRAORB RIDGE OSTEOTOMY & ELEV FRONT&TEMP LOBE Intracranial meningioma (HCC) Preop testing 02/20/2025 7:30 AM EDT [facility] Start: 02-20-2025 End: 02-20-2025 Rescj/exc les base ant crnl fossa indrl w/wo grf RESECTION LESION BASE OF ANTERIOR CRANIAL FOSSA INTRADURAL W/ DURAL REPAIR Intracranial meningioma (HCC) Preop testing 02/20/2025 7:30 AM EDT [facility] Start: 02-20-2025 Subsequent hospital visit by physician 02/20/2025 7:30 AM EDT Hospital Encounter Admitting [address] [place] [id number] Erik Pineda MD [address] [place] [address] Intracranial meningioma (HCC) [D32.0], Preop testing [Z01.818] Admitting Comment on above: Intracranial meningioma (HCC) [D32.0], P reop testing [Z01.818] Start: 02-15-2025 End: 02-15-2025 Admission to same day surgery center 02/15/2025 2:30 PM EDT [facility] [address] [place] [address] Erik Pineda MD [address] [place] [address] surgery discussion/ consent / MRI review [facility] Comment on above: surgery discussion/ consent / MRI review Start: 02-14-2025 End: 05-16-2025 CONFIRM BLOOD TYPE CONFIRM BLOOD TYPE Blood Bank Routine Pre-op evaluation Expected: 02/14/2025, Expires: 05/16/2025 [facility] Comment on above: Expected: 02/14/2025, Expires: Start: 02-14-2025 End: 05-16-2025 Hemoglobin A1c in Blood HEMOGLOBIN A1C Lab Routine Pre-op evaluation Type 2 diabetes mellitus without complication, without long-term current use of insulin (HCC) Expected: 02/14/2025, Expires: 05/16/2025 [facility] Work Phone: Comment on above: Expected: 02/14/2025, Expires: Start: 02-14-2025 End: 02-14-2025 Patient encounter procedure 02/14/2025 9:20 AM EDT Appointment Radiology [address] [address] MRI BRAIN WO/W IVCON Radiology Comment on above: MRI BRAIN WO/W IVCON Start: 02-14-2025 End: 02-14-2025 ambulatory 02/14/2025 8:30 AM EDT Results Only [place] Laboratory [address] [address] Labs [place] Laboratory Comment on above: Labs Start: 02-14-2025 End: 02-14-2025 Anesthesia consultation 02/14/2025 7:40 AM EDT PAT Pre Anesthesia [address] [place] [address] 2, Pacc [place] [address] [place] [address] PRE OP CLEARANCE Pre Anesthesia Comment on above: PRE OP CLEARANCE Start: 01-06-2025 End: 01-06-2025 ambulatory 01/06/2025 8:45 AM EDT [facility] Neurology Headache [facility] [address] [place] [address] Rachele Fenton APRN.PIE CUTTER [address] [place] [address] I want to stop taking my medicine Neurology Headache [facility] Comment on above: I want to stop taking my medicine Start: 12-28-2024 End: 12-28-2024 Patient encounter procedure 12/28/2024 9:20 AM EDT Office Visit Rheumatology [address] [place] [address] Zeinab Wood MD [address] [place] [address] 6 month follow up Rheumatology Comment on above: 6 month follow up Start: 12-27-2024 Plain X-ray of right wrist XR wrist RT min 3V* [facility] Start: 12-27-2024 XR Wrist - right GE 3 Views [facility] Start: 11-03-2024 Plain X-ray of left shoulder XR shoulder LT min 2V* [facility] Start: 11-03-2024 XR Shoulder - left Views [facility] [place] [facility] Start: 09-14-2024 Medicare Advantage Annual Wellness Visit Medicare Advantage Annual Wellness Visit [facility] Start: 05-30-2024 End: 05-30-2024 Patient encounter procedure 05/30/2024 9:40 AM EDT Office Visit Rheumatology [address] [place] [address] Zeinab Wood MD [address] [place], [place] [id number] Return in about 8 months (around 05/29/2024) for arthralgias, FM . Rheumatology Comment on above: Return in about 8 months (around 05/29/20) for arthralgias, FM . Start: 05-15-2024 Covid-19 Vaccine ( season) Covid-19 Vaccine ( season) [facility] Start: 05-15-2024 Covid-19 Vaccine () Covid-19 Vaccine () [facility] Start: 05-15-2024 Influenza vaccination [facility] Start: 04-04-2024 End: 04-04-2024 Admission to same day surgery center 04/04/2024 7:30 AM EDT - 04/04/2024 2:30 PM EDT Surgery Admitting [address] [place] [address] [address] [place] [address] ORBITOCRANIAL TO ANT CRAN FOSSA W/ SUPRAORB RIDGE OSTEOTOMY & ELEV FRONT&TEMP LOBE Admitting Comment on above: ORBITOCRANIAL TO ANT CRAN FOSSA W/ SUPRA ORB RIDGE OSTEOTOMY & ELEV FRONT&TEMP LOBE Start: [...] AM EDT Hospital Encounter Admitting [address] [place] [address] Erik Pineda MD [address] [place] [address] Intracranial meningioma (HCC) [D32.0] Admitting Comment on above: Intracranial meningioma (HCC) [D32.0] Start: 03-22-2024 End: 03-22-2024 Patient encounter procedure Pre Anesthesia Comment on above: Preop, ORBITOCRANIAL TO ANT CRAN FOSSA W / SUPRAORB RIDGE OSTEOTOMY & ELEV FRONT&TEMP LOBE Preop lab and nasal swab Start: 03-04-2024 DIABETES SCREEN DIABETES SCREEN [facility] Start: 03-04-2024 Diabetes Screening Diabetes Screening [facility] Start: 02-05-2024 End: 02-05-2024 ambulatory 02/05/2024 7:00 AM EDT [facility] Neurology Headache [facility] [address] [place] [address] Rachele Fenton, FURNACE CHARGING MACHINE OPERATOR.PIE CUTTER [address] [place] [address] f/u Neurology Headache [facility] Comment on above: f/u Start: 01-29-2024 End: 01-29-2024 Patient encounter procedure [facility] Comment on above: R Sphenoid Wing Meningioma Start: 01-21-2024 End: 01-21-2024 ambulatory 01/21/2024 2:30 PM EDT [facility] [address] [place] [address] Laron Lou DO, PhD [address] [facility] [address] [place] [address] Check up for headaches [facility] Comment on above: Check up for headaches Start: 09-14-2023 Behavioral Health Screening Behavioral Health Screening [facility] Start: 09-14-2023 Depression Assessment Depression Assessment [facility] Start: 05-15-2023 Covid-19 Vaccine ( season) Covid-19 Vaccine () [facility] Start: 05-15-2023 Influenza vaccination [facility] Start: 2022 COLOGUARD (FIT-DNA) COLOGUARD (FIT-DNA) [facility] Start: 2022 Colonoscopy COLONOSCOPY [facility] Start: 2022 COLORECTAL CANCER SCREENING COLORECTAL CANCER SCREENING [facility] Start: [address] COLONOGRAPHY [facility] Start: 2022 FECAL OCCULT BLOOD FECAL OCCULT BLOOD [facility] Start: 2022 Lipid 1996 panel - Serum or Plasma Lipid Screening [facility] Start: 2022 Lipid panel Lipid Screening [facility] Start: 2022 LIPID SCREEN LIPID SCREEN [facility] Start: 2022 Screening for malignant neoplasm of colon [facility] Start: 2022 SIGMOIDOSCOPY SIGMOIDOSCOPY [facility] Start: 09-14-2022 DEPRESSION ASSESSMENT DEPRESSION ASSESSMENT [facility] Start: 05-06-2022 Plain X-ray of right wrist XR wrist RT min 3V* [facility] Start: 05-06-2022 End: 05-06-2022 Patient encounter procedure Departed [facility] Ram[facility]rez Start: 05-01-2022 End: 05-01-2022 Patient encounter procedure Departed [facility] [place] Start: 03-01-2022 Adult depression screening assessment DEPRESSION SCREENING [facility] Start: 07-04-2021 Urine microalbumin profile DTaP,Tdap,Td Vaccine (1 - Tdap) [facility] Start: 03-21-2021 COVID-19 VACCINE (3 - Booster for Pfizer series) COVID-19 VACCINE (3 - Booster for Pfizer series) [facility] Start: 03-21-2021 COVID-19 VACCINE (3 - Pfizer series) COVID-19 VACCINE (3 - Pfizer series) [facility] Start: 02-21-2021 COVID-19 VACCINE (3 - Pfizer risk 4-dose series) COVID-19 VACCINE (3 - Pfizer risk 4-dose series) [facility] Start: 02-21-2021 COVID-19 VACCINE (3 - Pfizer risk series) COVID-19 VACCINE (3 - Pfizer risk series) [facility] Start: 2017 Mammography [facility] Start: 2017 Screening for malignant neoplasm of breast [facility] Start: 2007 HPV TESTING HPV TESTING [facility] Start: 2007 Screening for malignant neoplasm of cervix [facility] Start: 1998 PAP TESTING PAP TESTING [facility] Start: 1998 Screening for malignant neoplasm of cervix [facility] Start: 1996 Hepatitis B Vaccine (1 of 3 - 19+ 3-dose series) Hepatitis B Vaccine (1 of 3 - 19+ 3-dose series) [facility] Start: 1996 Pneumococcal vaccination Pneumococcal Vaccine (1 of 2 - PCV) [facility] Start: 1996 SHINGRIX VACCINE (1 of 2) SHINGRIX VACCINE (1 of 2) [facility] Start: 1996 Urine microalbumin profile [facility] Start: 1995 Annual PCP Team Chronic Disease Visit Annual PCP Team Chronic Disease Visit [facility] Start: 1995 Anxiety Screening Anxiety Screening [facility] Start: 1995 Depression Screening Depression Screening [facility] Start: 1995 Hepatitis B surface antibody level LDL Cholesterol [facility] Start: 1987 Diabetic foot examination Diabetic Foot Exam [facility] Start: 1987 Glaucoma screening Dilated Retinal Exam [facility] Start: 1987 Hepatitis B screening Urine Albumin:Creatinine Ratio [facility] Start: 1983 PNEUMOCOCCAL (1 - PCV) PNEUMOCOCCAL (1 - PCV) [facility] Start: 1982 Hemoglobin A1c measurement HbA1C [facility] Start: 1977 HEPATITIS B (1 of 3 - 3-dose series) HEPATITIS B (1 of 3 - 3-dose series) [facility] Start: 1977 Hepatitis B Vaccine (1 of 3 - 3-dose series) Hepatitis B Vaccine (1 of 3 - 3-dose series) [facility] Start: 1977 Screening for malignant neoplasm of colon [facility] End: 09-06-2025 Alanine aminotransferase [Enzymatic activity/volume] in Serum or Plasma ALANINE AMINOTRANSFERASE / SGPT Lab Routine Inflammatory arthritis Every 3 months for 4 Occurrences starting 09/09/2024 until 09/06/2025 [facility] Comment on above: Every 3 months for 4 Occurrences startin g 09/09/2024 until 09/06/2025 End: 10-10-2025 Alanine aminotransferase [Enzymatic activity/volume] in Serum or Plasma ALANINE AMINOTRANSFERASE / SGPT Lab Routine Encounter for medication monitoring Every 3 months for 4 Occurrences starting 10/10/2024 until 10/10/2025 [facility] Comment on above: Every 3 months for 4 Occurrences startin g 10/10/2024 until 10/10/2025 End: 09-06-2025 Aspartate aminotransferase [Enzymatic activity/volume] in Serum or Plasma ASPARTATE AMINOTRANSFERASE/SGOT Lab Routine Inflammatory arthritis Every 3 months for 4 Occurrences starting 09/09/2024 until 09/06/2025 [facility] Work Phone: Comment on above: Every 3 months for 4 Occurrences startin g 09/09/2024 until 09/06/2025 End: 10-10-2025 Aspartate aminotransferase [Enzymatic activity/volume] in Serum or Plasma ASPARTATE AMINOTRANSFERASE/SGOT Lab Routine Encounter for medication monitoring Every 3 months for 4 Occurrences starting 10/10/2024 until 10/10/2025 [facility] Work Phone: Comment on above: Every 3 months for 4 Occurrences startin g 10/10/2024 until 10/10/2025 Bacteria identified in Urine by Culture Urine Culture [facility] End: 09-06-2025 C reactive protein [Mass/volume] in Serum or Plasma C-REACTIVE PROTEIN Lab Routine Inflammatory arthritis Every 3 months for 4 Occurrences starting 09/09/2024 until 09/06/2025 [facility] Comment on above: Every 3 months for 4 Occurrences startin g 09/09/2024 until 09/06/2025 End: 10-10-2025 C reactive protein [Mass/volume] in Serum or Plasma C-REACTIVE PROTEIN Lab Routine Encounter for medication monitoring Every 3 months for 4 Occurrences starting 10/10/2024 until 10/10/2025 [facility] Comment on above: Every 3 months for 4 Occurrences startin g 10/10/2024 until 10/10/2025 End: 09-06-2025 CBC panel - Blood by Automated count COMPLETE BLOOD COUNT Lab Routine Inflammatory arthritis Every 3 months for 4 Occurrences starting 09/09/2024 until 09/06/2025 [facility] Comment on above: Every 3 months for 4 Occurrences startin g 09/09/2024 until 09/06/2025 End: 10-10-2025 CBC panel - Blood by Automated count COMPLETE BLOOD COUNT Lab Routine Encounter for medication monitoring Every 3 months for 4 Occurrences starting 10/10/2024 until 10/10/2025 [facility] Comment on above: Every 3 months for 4 Occurrences startin g 10/10/2024 until 10/10/2025 End: 09-06-2025 Erythrocyte sedimentation rate SEDIMENTATION RATE, WESTERGREN Lab Routine Inflammatory arthritis Every 3 months for 4 Occurrences starting 09/09/2024 until 09/06/2025 [facility] Comment on above: Every 3 months for 4 Occurrences startin g 09/09/2024 until 09/06/2025 End: 10-10-2025 Erythrocyte sedimentation rate SEDIMENTATION RATE, WESTERGREN Lab Routine Encounter for medication monitoring Every 3 months for 4 Occurrences starting 10/10/2024 until 10/10/2025 [facility] Comment on above: Every 3 months for 4 Occurrences startin g 10/10/2024 until 10/10/2025 Insulin [Units/volum e] in Serum or Plasma [facility] End: 04-01-2026 MR Brain WO and W contrast IV MRI BRAIN WO/W IVCON Radiology Routine Benign neoplasm of meninges (HCC) 1 Occurrences starting 03/02/2025 until 04/01/2026 [facility] Work Phone: Comment on above: 1 Occurrences starting 03/02/2025 until 04/01/2026 MR Skull base WO and W contrast IV MRI SKULL BASE WO/W IVCON Radiology Routine Benign neoplasm of meninges (HCC) 01/29/2024 1:56 PM EDT [facility] Work Phone: [facility] Immunizations Immunization Date Immunization Notes Care Provider Huseyin montague 06-29-2023 influenza virus vaccine, unspecified formulation [facility] 2 Work Phone: [facility] 06-18-2022 Influenza, injectabl e, Madin Houck Canine Kidney, preservative free, quadrivalent Estevan Polanco NP Work Phone: [facility] 06-18-2022 influenza virus vaccine, unspecified formulation Fahad Corey MD Work Phone: [facility] 07-12-2021 influenza, injectabl e, quadrivalent, preservative free Estevan Polanco TICKET DISPATCHER Work Phone: [facility] 07-03-2021 tetanus and diphther ia toxoids, adsorbed, preservative free, for adult use (5 Lf of tetanus toxoid and 2 Lf of diphtheria toxoid) Estevan Polanco TICKET DISPATCHER Work Phone: [facility] 05-15-2021 Kenalog -40 mg Beti Kear dwayne Other [employer] Other 04-10-2021 Kenalog -40 mg Beti Estivenar dwayne Other [employer] Other 01-24-2021 COVID-19 mRNA, Comirnaty (Pfizer) MD Sammie Gonzalez Work Phone: [facility] 01-02-2021 COVID-19 mRNA Comirnatpiedad (Pfizer) MD Sammie Gonzalez Work Phone: [facility] 11-15-2020 Kenalog -40 mg Beti Neva rice Other [employer] Other 07-04-2020 Influenza, injectabl e, Madin Houck Canine Kidney, preservative free, quadrivalent Estevan Polanco TICKET DISPATCHER Work Phone: [facility] 03-08-2020 Gel-Syn Beti Kearne y Other [employer] Other 03-01-2020 Gel-Syn Beti Kearne y Other [employer] Other 02-16-2020 Gel-Syn Beti Kearne y Other [employer] Other 01-26-2020 Kenalog -40 mg Beti Kear dwayne Other [employer] Other 02-02-2019 hepatitis A vaccine, adult dosage Estevan Polanco TICKET DISPATCHER Work Phone: [facility] 08-11-2017 Theraputic Injection Robert Bowles Other [employer] Other 08-04-2017 Theraputic Injection Jennife r Jelena Other [employer] Other 07-07-2017 Kenalog -40 mg Beti Kear dwayne Other [employer] Other 06-23-2017 influenza virus vaccine, unspecified formulation Estevan Polanco TICKET DISPATCHER Work Phone: [facility] 04-09-2017 Kenalog -40 mg Beti Kear dwayne Other [employer] Other 12-11-2016 Kenalog -40 mg Beti Kear dwayne Other [employer] Other 09-29-2014 influenza, injectabl e, quadrivalent, contains preservative Beti Jelena Other [facility] 08-30-2014 influenza, injectabl e, quadrivalent, preservative free Estevan Polanco TICKET DISPATCHER Work Phone: [facility] Healthcare Payers Date Payer Category Payer Self-pay [id number] 2024 Unknown [id number] 2024 Medicare (Managed Care) [id number] 2024 Medicare [id number] 2024 Medicaid [id number] 2023 Medicaid [id number] 2023 Unknown 2009 Medicare MEDICARE MEDICAR E A AND B [id number] 2009-Present [phone] [address] [place] [id number] Medicare [id number] 2009 Medicare MEDICARE MEDICAR E A AND B [id number] 2009-Present [phone] [address] [place] [id number] Medicare [id number] 1977 Unknown [id number] 1977 Unknown [id number] 1977 Unknown [id number] 1977 Unknown [id number] 259 1975 Unknown [id number] 2.16.840.1.741383.3.579.2.1 259 1975 Unknown [id number] 2.16.840.1.791191.3.579.2.7 16 1977 Unknown [id number] 2.16.840.1.567410.3.579.2.1 96 1977 Unknown [id number] 2.16.840.1.262541.3.579.2.1 1977 Unknown [id number] 2.16.840.1.597341.3.579.2.1 1977 Unknown [id number] 2.16.840.1.324292.3.579.2.1 1977 Unknown [id number] 2.16.840.1.914576.3.579.2.1 1977 Unknown [id number] 2.16.840.1.878270.3.579.2.1 1957 Medicare [id number] 2.16.840.1.696525.19 1959 Unknown [id number] Unknown [id number] 2.16.840.1.623622.3.579.2.5 31 Unknown [id number] 2.16.840.1.922930.3.579.2.5 31 Unknown [id number] 2.16.840.1.650646.3.579.2.5 31 Unknown [id number] 2.16.840.1.538099.3.579.2.5 31 Unknown [id number] 2.16.840.1.080393.3.579.2.5 31 Unknown [id number] 2.16.840.1.025747.3.579.2.5 31 Unknown [id number] 2.16.840.1.593997.3.579.2.5 31 Unknown [id number] 2.16.840.1.922170.3.579.2.5 31 Social History Date Type Detail Facility Start: 03-04-2021 End: 02-14-2025 Tobacco smoking status NHIS Ex-smoker [facility] Start: 03-04-2021 End: 02-14-2025 Tobacco use and exposure Smokeless tobacco non-user [facility] Start: 1975 Sex Assigned At Female [facility] Start: 01-10-2022 End: 01-20-2022 Exposure to SARS-CoV-2 (event) Not sure [facility] Start: 09-22-2022 End: 06-01-2023 Sex Assigned At [facility] History of tobacco use Current smoker [facility] Start: 09-22-2022 End: 06-01-2023 History of Social function [facility] Start: 08-15-2012 Adult Depression Screening Assessment 1 [facility] Start: 04-16-2018 Gender identity Identifies as female gender (finding) [facility] Start: 02-25-2021 Sexual orientation Heterosexual (finding) [facility] Start: 06-01-2023 End: 03-06-2025 Alcohol intake Current drinker of alcohol (finding) [facility] History of tobacco use Cigarette Smoker [facility] Start: 03-25-2023 Tobacco Comment >10 years since last smoked [facility] Start: 03-25-2023 Alcohol Comment caffeine: stackers [facility] Start: 1975 Sex assigned at Not on file [facility] Start: 09-17-2024 End: 02-11-2025 Sex Female (finding) [facility] Start: 02-14-2025 Tobacco Comment Started 1994. Quit 2009. 1 ppd [facility] Start: 02-14-2025 Alcohol Comment 3-4 drinks on occasion [facility] Start: 03-13-2025 Tobacco smoking status NHIS Unknown if ever smoked [facility] Start: 03-13-2025 Alcohol intake Alcohol Use Details [facility] Medical Equipment Procedure Code Equipment Code Equipment Origin al Text Equipment Identifier Dates Start: 03-10-2023 Patch Duramatrix -Onlay Plus Collagen 2x2in Dural Regeneration Membrane - [id number] Start: 02-20-2025 Plate Bone 8 Hol e Profile - [id number] Start: 02-20-2025 Plate 3d Large B ox Low Profile Titanium Bone 2x2 Hole 1.5mm Screw - [id number] Start: 02-20-2025 Plate Low Profil e Titanium 12mm Bone 2 Hole Bar 1.5mm Screw Nonsterile - [id number] Start: 02-20-2025 Cover 10mm Mediu m Titanium Fenton Hole Low Profile Tab 1.5mm Screws - [id number] Start: 02-20-2025 Screw Bone Unive rsal Neuro 3 4mm 1.5mm Self Drill Axial Stability Latex - [id number] Start: 02-20-2025 [place] [facility] Axs Neuro Screw Disc Pre-Loaded 1.5mm X 4mm [id number] Start: 02-20-2025 Clinical Notes 03-04-2021 to 04-26-2025 Telephone Encounter - La Nena Waterman LPN - 04/26/2025 9:34 AM EDTTelephone Encounter - La Nena Waterman LPN - 04/26/2025 9:34 AM EDTHRachele acevedo APRN.PIE CUTTER - 04/12/2025 7:00 AM EDT Note Date & Type Note Facility 04-26-2025 Telephone encounter Note Eye exam was completed and received 12/20/2024. [facility] 04-26-2025 Miscellaneous Notes Eye exam was completed and received 12/20/2024. She needs an eye exam if she wants future refills. The following approved medication requests have been transmitted electronically. Requested Prescriptions Signed Prescriptions Disp Refills hydrOXYchloroQUINE (PLAQUENIL) 200 mg tablet 60 tablet 2 Sig: TAKE 1 TABLET BY MOUTH TWICE A DAY Authorizing Provider: ZEINAB WOOD MD Images from the original note were not included. Most recent Rheumatology visit: 12/28/2024 (with Zeinab Wood) Last Bone Density on file: None on file Rheumatology Care Team: None on file Recent Office Visits - This Specialty 12/28/2024 Inflammatory arthritis Rheumatology Zeinab Wood MD 05/30/2024 Inflammatory arthritis Rheumatology Zeinab Wood MD 09/28/2023 Inflammatory arthritis Rheumatology Zeinab Wood MD Upcoming Rheumatology Appointments - Next 365 Days Visit Type Date Time Department [facility] 06/22/2025 2:20 PM [facility] Last Ophthalmology Check for Plaquenil (Hydroxychloroquine) [...] Expires Ordered Last Rel. ASPARTATE AMINOTRANSFERASE/SGOT [SQAST] 3 Every 3 months 09/06/25 09/09/24 02/14/25 Auth. provider: Zeinab Wood MD Assoc. diagnoses: Inflammatory arthritis ALANINE AMINOTRANSFERASE / SGPT [SQALT] 3/4 Every 3 months 09/06/25 09/09/24 02/14/25 Auth. provider: Zeinab Wood MD Assoc. diagnoses: Inflammatory arthritis COMPLETE BLOOD COUNT [SQCBC] 3/4 Every 3 months 09/06/25 09/09/24 02/14/25 Auth. provider: Zeinab Wood MD Assoc. diagnoses: Inflammatory arthritis SEDIMENTATION RATE, WESTERGREN [SQWSR] 3/4 Every 3 months 09/06/25 09/09/24 02/14/25 Auth. provider: Zeinab Wood MD Assoc. diagnoses: Inflammatory arthritis C-REACTIVE PROTEIN [SQCRP] 3/4 Every 3 months 09/06/25 09/09/24 02/14/25 Auth. provider: Zeinab Wood MD Assoc. diagnoses: Inflammatory arthritis ASPARTATE AMINOTRANSFERASE/SGOT [SQAST] 3/4 Every 3 months 10/10/25 10/10/24 02/14/25 Auth. provider: Zeinab Wood MD Assoc. diagnoses: Encounter for medication monitoring ALANINE AMINOTRANSFERASE / SGPT [SQALT] 3/4 Every 3 months 10/10/25 10/10/24 02/14/25 Auth. provider: Zeinab Wood MD Assoc. diagnoses: Encounter for medication monitoring COMPLETE BLOOD COUNT [SQCBC] 3/4 Every 3 months 10/10/25 10/10/24 02/14/25 Auth. provider: Zeinab Wood MD Assoc. diagnoses: Encounter for medication monitoring SEDIMENTATION RATE, WESTERGREN [SQWSR] 3/4 Every 3 months 10/10/25 10/10/24 02/14/25 Auth. provider: Zeinab Wood MD Assoc. diagnoses: Encounter for medication monitoring C-REACTIVE PROTEIN [SQCRP] 3/4 Every 3 months 10/10/25 10/10/24 02/14/25 Auth. provider: Zeinab Wood MD Assoc. diagnoses: Encounter for medication monitoring Open Future (Single Instance) Lab Orders None Last eye exam 12/20/24 documented in this encounter [facility] 04-26-2025 Telephone encounter Note She needs an eye exam if she wants future refills. The following approved medication requests have been transmitted electronically. Requested Prescriptions Signed Prescriptions Disp Refills hydrOXYchloroQUINE (PLAQUENIL) 200 mg tablet 60 tablet 2 Sig: TAKE 1 TABLET BY MOUTH TWICE A DAY Authorizing Provider: ZEINAB WOOD MD [facility] 04-25-2025 Telephone encounter Note Images from the original note were not included. Most recent Rheumatology visit: 12/28/2024 (with Zeinab Wood) Last Bone Density on file: None on file Rheumatology Care Team: None on file Recent Office Visits - This Specialty 12/28/2024 Inflammatory arthritis Rheumatology Zeinab Wood MD 05/30/2024 Inflammatory arthritis Rheumatology Zeinab Wood MD 09/28/2023 Inflammatory arthritis Rheumatology Zeinab Wood MD Upcoming Rheumatology Appointments - Next 365 Days Visit Type Date Time Department [facility] 06/22/2025 2:20 PM [facility] Last Ophthalmology Check for Plaquenil (Hydroxychloroquine) [...] 3 months 09/06/25 09/09/24 02/14/25 Auth. provider: Zeinab Wood MD Assoc. diagnoses: Inflammatory arthritis ALANINE AMINOTRANSFERASE / SGPT [SQALT] 3/4 Every 3 months 09/06/25 09/09/24 02/14/25 Auth. provider: Zeinab Wood MD Assoc. diagnoses: Inflammatory arthritis COMPLETE BLOOD COUNT [SQCBC] 3/4 Every 3 months 09/06/25 09/09/24 02/14/25 Auth. provider: Zeinab Wood MD Assoc. diagnoses: Inflammatory arthritis SEDIMENTATION RATE, WESTERGREN [SQWSR] 3/4 Every 3 months 09/06/25 09/09/24 02/14/25 Auth. provider: Zeianb Wood MD Assoc. diagnoses: Inflammatory arthritis C-REACTIVE PROTEIN [SQCRP] 3/4 Every 3 months 09/06/25 09/09/24 02/14/25 Auth. provider: Zeinab Wood MD Assoc. diagnoses: Inflammatory arthritis ASPARTATE AMINOTRANSFERASE/SGOT [SQAST] 3/4 Every 3 months 10/10/25 10/10/24 02/14/25 Auth. provider: Zeinab Wood MD Assoc. diagnoses: Encounter for medication monitoring ALANINE AMINOTRANSFERASE / SGPT [SQALT] 3/4 Every 3 months 10/10/25 10/10/24 02/14/25 Auth. provider: Zeinab Wood MD Assoc. diagnoses: Encounter for medication monitoring COMPLETE BLOOD COUNT [SQCBC] 3/4 Every 3 months 10/10/25 10/10/24 02/14/25 Auth. provider: Zeinab Wood MD Assoc. diagnoses: Encounter for medication monitoring SEDIMENTATION RATE, WESTERGREN [SQWSR] 3/4 Every 3 months 10/10/25 10/10/24 02/14/25 Auth. provider: Zeinab Wood MD Assoc. diagnoses: Encounter for medication monitoring C-REACTIVE PROTEIN [SQCRP] 3/4 Every 3 months 10/10/25 10/10/24 02/14/25 Auth. provider: Zeinab Wood MD Assoc. diagnoses: Encounter for medication monitoring Open Future (Single Instance) Lab Orders None Last eye exam 12/20/24 [facility] 04-12-2025 History of Presen t illness Narrative [facility] - Follow up Virtual Visit [...] visit. Either the patient or their legal labor relations representative has been informed of the risks and benefits of -- and alternatives to -- treatment through a remote evaluation and consents to proceed with the evaluation remotely. Accompanied by: Self Primary Problem List: ACTIVE PROBLEM LIST Intracranial Meningioma (Hcc) Chronic Tension-Type Headache, Intractable Anxiety Copd (Chronic Obstructive Pulmonary Disease) (Hcc) Diabetes Mellitus (Hcc) Mixed Hyperlipidemia Fibromyalgia Marek (Obstructive Sleep Apnea) Gerd (Gastroesophageal Reflux Disease) Hypothyroidism Class 3 Severe Obesity Due to Excess Calories With Serious Comorbidity and Body Mass Index (Bmi) of 40.0 to 44.9 in Adult (Hcc) Inflammatory Arthritis [...] Prescription for 10 mg nortriptyline sent to [facility], 2-month supply provided to accommodate tapering [...] patient states that her headaches have improved. Headaches: - Improvement [...] these with the patient: yes Rachele Fenton APRN.PIE CUTTER HEADACHE SCORES: 02/01/2024 12/30/2024 04/10/2025 Headache Questions [...] soft tissue component identified in the orbit. Hybrid Car Mechanic: GUANACO Transcribe Date/Time: Jan 31 2024 3:33P [...] and clear, coherent, and relevant. Short and manager intermediate memory, cognition and general fund of [...] wean off nortriptyline if stable; discussed that both Cymbalta and nortriptyline are antidepressants with efficacy for [...] Service: Virtual Visit 20 minutes Recording using [employer] software for draft documentation of the visit was discussed with the patient/authorized labor relations representative; all questions welcomed and answered. Patient/authorized labor relations representative agreed to proceed Rachele Fenton APRN.JOSSIE Headache Section [facility] April 12, 2025 documented in this encounter [facility] 04-12-2025 Note HNO ID: [id number] Author: RACHELE FENTON APRN.JOSSIE Service: ? Author Type: Nurse Practitioner Type: Progress Notes Filed: 04/12/2025 07:28 Note Text: Headache Center - Follow up [...] visit. Either the patient or their legal labor relations representative has been informed of the risks and benefits of -- and alternatives to -- treatment through a remote evaluation and consents to proceed with the evaluation remotely. Accompanied by: Self Primary Problem List: ACTIVE PROBLEM LIST Intracranial Meningioma (Hcc) Chronic Tension-Type Headache, Intractable Anxiety Copd (Chronic Obstructive Pulmonary Disease) (Hcc) Diabetes Mellitus (Hcc) Mixed Hyperlipidemia Fibromyalgia Marek (Obstructive Sleep Apnea) Gerd (Gastroesophageal Reflux Disease) Hypothyroidism Class 3 Severe Obesity Due to Excess Calories With Serious Comorbidity and Body Mass Index (Bmi) of 40.0 to 44.9 in Adult (Hcc) Inflammatory Arthritis [...] Prescription for 10 mg nortriptyline sent to [facility], 2-month supply provided to accommodate tapering [...] patient states that her headaches have improved. Headaches: - Improvement [...] Take 1 capsule by mouth twice daily. (more content not included)... [facility] 03-29-2025 History of Presen t illness Narrative Images from the original note were not included. SECTION OF SKULL BASE SURGERY MINIMALLY INVASIVE CRANIAL BASE & PITUITARY SURGERY PROGRAM [facility] TELEMEDICINE FOLLOW-UP VISIT This is a virtual visit. It required patient-provider interaction for the medical decision making as documented below. Kourtney Novak has consented for this telemedicine encounter. I have communicated my name and active licensure. The patient's identity and physical location were verified at the time of this visit. Either the patient or their legal labor relations representative has been informed of the risks and benefits of -- and alternatives to -- treatment through a remote evaluation and consents to proceed with the evaluation remotely. 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 Her main issue was that she had a scab which had an opening on the wound and is now resolved with the wound looking like it is healing well. Plan: 1. Intracranial meningioma (HCC) (D32.0) 2. Postprocedural state (Z98.890) - Approximately 5 weeks post-surgery for intracranial meningioma; no recurrence of symptoms such as diplopia or facial paresthesia. - Surgical site healing well; residual scab present, likely due to pressure from eyeglasses. - Advised continuation of gauze dressing until complete epithelialization occurs. - Discussed potential for hair regrowth along the incision line; some areas may remain alopecic due to scarring. - Explained that residual edema and fluid collection at the incision site are expected to resolve over the coming months as scar tissue matures. - Patient inquired about facial asymmetry and indents; clarified that these are likely due to postoperative fluid accumulation and muscle repositioning, which should improve over time. - Cleared for resumption of normal hair care practices, including shampooing and dyeing. - Follow-up in 6 months with Heather Moy CNP to monitor for recurrence; discussed potential for adjuvant radiotherapy if recurrence is detected. 3. Dizziness and giddiness (R42) - Resolved postoperatively; no further episodes reported. - Patient can gradually resume normal activities, including bending, pushing, pulling, and lifting. Erik Pineda MD Subjective: Patient is unaccompanied . Kourtney Novak is a 49-year-old female presenting for follow-up after recent surgery. Kourtney reports significant improvement since her surgery five weeks ago, stating, I don't even feel like I had surgery, to be honest. She does not endorse any balance issues, which were previously severe, causing her to veer to the right and feel as though she was going to fall. These symptoms persisted for 6-8 months before the surgery. She reports no issues with vision or facial sensation, particularly on the right side. She notes that the incision site is still sore, attributing this to her glasses resting on the area. She has been using a dressing on the stem of her glasses to alleviate discomfort. She also mentions puffiness around the incision and an indent on her face from her glasses. Kourtney has been adhering to post-operative activity restrictions, avoiding bending, pushing, pulling, and lifting, and inquires about resuming normal activities. She also asks about using regular shampoo and dyeing her hair. She shares that her youngest child, aged 26, is currently traveling in [place]. Medications Current Outpatient Medications Medication Sig methocarbamol (ROBAXIN) 500 mg tablet TAKE 1 [...] Take 20 mg by mouth once daily. No current facility-administered medications for this visit. Exam: Const Well appearing, NAD Neuro Awake, alert, oriented x 3 Fluent speech Face symmetric No obvious neurological deficit Inc: healing well, no scab Data: Imaging: MRI 02/21/25: IMPRESSION: Expected postoperative changes from right sphenoid wing and middle cranial fossa mass resection. No residual mass or pathologic enhancement. Pathology 02/20/25: FINAL DIAGNOSIS A. Right middle sphenoid wing region, excision: - Morphologically consistent with meningothelial meningioma, WHO grade 1 documented in this encounter [facility] 03-29-2025 Note HNO ID: [id number] Author: ERIK PINEDA MD Service: ? Author Type: Physician Type: Progress Notes Filed: 03/29/2025 10:48 Note Text: SECTION OF SKULL BASE SURGERY MINIMALLY INVASIVE CRANIAL BASE AND PITUITARY SURGERY PROGRAM [facility] TELEMEDICINE FOLLOW-UP VISIT This is a virtual visit. It required patient-provider interaction for the medical decision making as documented below. Kourtney Novak has consented for this telemedicine encounter. I have communicated my name and active licensure. The patient's identity and physical location were verified at the time of this visit. Either the patient or their legal labor relations representative has been informed of the risks and benefits of -- and alternatives to -- treatment through a remote evaluation and consents to proceed with the evaluation remotely. 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 Her main issue was that she had a scab which had an opening on the wound and is now resolved with the wound looking like it is healing well. Plan: 1. Intracranial meningioma (HCC) (D32.0) 2. Postprocedural state (Z98.890) - Approximately 5 weeks post-surgery for intracranial meningioma; no recurrence of symptoms such as diplopia or facial paresthesia. - Surgical site healing well; residual scab present, likely due to pressure from eyeglasses. - Advised continuation of gauze dressing until complete epithelialization occurs. - Discussed potential for hair regrowth along the incision line; some areas may remain alopecic due to scarring. - Explained that residual edema and fluid collection at the incision site are expected to resolve over the coming months as scar tissue matures. - Patient inquired about facial asymmetry and indents; clarified that these are likely due to postoperative fluid accumulation and muscle repositioning, which should improve over time. - Cleared for resumption of normal hair care practices, including shampooing and dyeing. - Follow-up in 6 months with Heather Moy CNP to monitor for recurrence; discussed potential for adjuvant radiotherapy if recurrence is detected. 3. Dizziness and giddiness (R42) - Resolved postoperatively; no further episodes reported. - Patient can gradually resume normal activities, including bending, pushing, pulling, and lifting. Erik Pineda MD Subjective: Patient is unaccompanied . Kourtney Novak is a 49-year-old female presenting for follow-up after recent surgery. Kourtney reports significant improvement since her surgery five weeks ago, stating, I don't even feel like I had surgery, to be honest. She does not endorse any balance issues, which were previously severe, causing her to veer to the right and feel as though she was going to fall. These symptoms persisted for 6-8 months before the surgery. She reports no issues with vision or facial sensation, particularly on the right side. She notes that the incision site is still sore, attributing this to her glasses resting on the area. She has been using a dressing on the stem of her glasses to alleviate discomfort. She also mentions puffiness around the incision and an indent on her face from her glasses. Kourtney has been adhering to post-operative activity restrictions, avoiding bending, pushing, pulling, and lifting, and inquires about resuming normal activities. She also asks about using regular shampoo and dyeing her hair. She shares that her youngest child, aged 26, is currently traveling in [place]. Medications Current Outpatient Medications Medication Sig methocarbamol (ROBAXIN) 500 mg tablet TAKE 1 [...] po qd levothyroxine (SYNTHROID) 50 mcg tablet (more content not included)... [facility] 03-27-2025 Telephone encounter Note Hospital Discharge Summary faxed to Dr. Hoy. Saenz [facility] 03-27-2025 Miscellaneous Notes Hospital Discharge Summary faxed to Dr. Hoy. Saenz documented in this encounter [facility] 03-20-2025 Telephone encounter Note Picture uploaded in [employer] reviewed. Wound is healing appropriately. Will complete the 10 days dose of Bactrim. Prescribed accordingly. [facility] 03-20-2025 Miscellaneous Notes Picture uploaded in [employer] reviewed. Wound is healing appropriately. Will complete the 10 days dose of Bactrim. Prescribed accordingly. documented in this encounter [facility] 03-15-2025 Note HNO ID: [id number] Author: IZABELA PATTON MD Service: ? 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 She presents today for evaluation of the concern for drainage from the inferior aspect of the wound. Patient states that there was a scab right where the long arm of her glasses would be, the scab fell off, patient then used a cotton tip in the open area and noted yellow pus like material. Wound was thoroughly cleaned in clinic, no active drainage was noted. Discussed the home wound cleaning instructions and prescribed Bactrim for 5 days. Patient is aware to call/present to ED if new drainage from the wound or the area of concern is expanding or new fever or neurological changes. PLAN: - Send a picture in [employer] on Thursday. - Bactrim DS x 5 d and home wound care as discussed. SUBJECTIVE: Patient is unaccompanied. Patient presents today for evaluation of the concern for drainage from the inferior aspect of the wound. Patient states that there was a scab right where the long arm of her glasses would be, the scab fell off, patient then used a cotton tip in the open area and noted yellow pus like material. She called the clinic and we suggested seeing us in-person. Upon my evaluation, patient is doing well neurologically, denies any new symptoms, denies fever. The area of concern on wound was examined, no active drainage was noted. The wound was cleaned with betadine and gauze. Review of Symptoms: Infectious symptoms: Negative for fevers Neurological Changes : None Current Outpatient Medications Medication Sig methocarbamol (ROBAXIN) 500 mg tablet TAKE 1 [...] Take 20 mg by mouth once daily. sulfamethoxazole-trimethoprim (BACTRIM DS) 800-160 mg per tablet Take 1 tablet by mouth two times a day for 5 days. No current facility-administered medications for this visit. PHYSICAL EXAMINATION: BP 156/79[md notified[ Pulse 82 Temp (Src) 36.6 (Oral) Resp 18 Wt 245 lb 6 oz (111.3kg) SpO2 99% Oriented to person, place, and time Speech: Normal fluency and comprehension 2nd cranial nerve: Full visual white 3rd, 4th and 6th cranial nerves: Pupils equally round and reactive to light, extraocular movements intact without nystagmus or subjective diplopia 5th cranial nerve: V1-3 intact to light touch bilaterally 7th cranial nerve: Facial muscles full and symmetric bilaterally 8th cranial nerve: hearing intact to finger rub bilaterally 9th cranial nerve: gag reflex test deferred 10th cranial nerve: Palate elevates symmetrically and uvul (more content not included)... [facility] 03-15-2025 History of Presen t illness Narrative Images from the original note were not included. 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 She presents today for evaluation of the concern for drainage from the inferior aspect of the wound. Patient states that there was a scab right where the long arm of her glasses would be, the scab fell off, patient then used a cotton tip in the open area and noted yellow pus like material. Wound was thoroughly cleaned in clinic, no active drainage was noted. Discussed the home wound cleaning instructions and prescribed Bactrim for 5 days. Patient is aware to call/present to ED if new drainage from the wound or the area of concern is expanding or new fever or neurological changes. PLAN: - Send a picture in [employer] on Thursday. - Bactrim DS x 5 d and home wound care as discussed. SUBJECTIVE: Patient is unaccompanied. Patient presents today for evaluation of the concern for drainage from the inferior aspect of the wound. Patient states that there was a scab right where the long arm of her glasses would be, the scab fell off, patient then used a cotton tip in the open area and noted yellow pus like material. She called the clinic and we suggested seeing us in-person. Upon my evaluation, patient is doing well neurologically, denies any new symptoms, denies fever. The area of concern on wound was examined, no active drainage was noted. The wound was cleaned with betadine and gauze. Review of Symptoms: Infectious symptoms: Negative for fevers Neurological Changes : None Current Outpatient Medications Medication Sig methocarbamol (ROBAXIN) 500 mg tablet TAKE 1 [...] Take 20 mg by mouth once daily. sulfamethoxazole-trimethoprim (BACTRIM DS) 800-160 mg per tablet Take 1 tablet by mouth two times a day for 5 days. No current facility-administered medications for this visit. PHYSICAL EXAMINATION: BP 156/79[md notified[ Pulse 82 Temp (Src) 36.6 (Oral) Resp 18 Wt 245 lb 6 oz (111.3kg) SpO2 99% Oriented to person, place, and time Speech: Normal fluency and comprehension 2nd cranial nerve: Full visual white 3rd, 4th and 6th cranial nerves: Pupils equally round and reactive to light, extraocular movements intact without nystagmus or subjective diplopia 5th cranial nerve: V1-3 intact to light touch bilaterally 7th cranial nerve: Facial muscles full and symmetric bilaterally 8th cranial nerve: hearing intact to finger rub bilaterally 9th cranial nerve: gag reflex test deferred 10th cranial nerve: Palate elevates symmetrically and uvula in the midline 11th nerve: shoulder shrug 5/5 bilaterally 12th cranial nerve: tongue protrudes in the midline Motors: 5/5 strength throughout without pronator drift Sensation: intact to light touch in all extremities Coordination: no dysmetria on finger-nose testing bilaterally Gait: able to stand and ambulate independently with normal gait DATA REVIEW: Imaging: None for this visit. Additional intake questions: Has the patient had fever, nausea, vomiting, diarrhea, constipation, fatigue for > 1 week? No Does the patient have a decreased appetite? No Does patient want to see a Plastic Tubing Insulation Supervisor? No (yes to any of above refer patient to schedulers for dietitian appointment) ) Does patient have any new or increased numbness or tingling of extremities? No Is patient interested in fertility information? No Does patient need any prescription refills? No Does patient have an advanced directive in place? No, Patient referred to [facility] documented in this encounter [facility] 03-15-2025 Telephone encounter Note Ordered Bactrim. [facility] 03-15-2025 Miscellaneous Notes Ordered Bactrim. documented in this encounter [facility] 03-15-2025 Note HNO ID: [id number] Author: YULY DO MA Service: ? Author Type: Helmet Binder Type: Progress Notes Filed: 03/15/2025 12:44 Note Text: Additional intake questions: Has the patient had fever, nausea, vomiting, diarrhea, constipation, fatigue for > 1 week? No Does the patient have a decreased appetite? No Does patient want to see a Plastic Tubing Insulation Supervisor? No (yes to any of above refer patient to schedulers for dietitian appointment) ) Does patient have any new or increased numbness or tingling of extremities? No Is patient interested in fertility information? No Does patient need any prescription refills? No Does patient have an advanced directive in place? No, Patient referred to [facility] Electronically Signed By: Yuly Do MA [facility] 03-13-2025 Telephone encounter Note Physician: Eliceo Call from pharmacy requesting refill. Please E-Scribe Last OV: 01/06/2025 with Hamdamarie Future OV: Not Scheduled. Requested Prescriptions Pending Prescriptions Disp Refills methocarbamol (ROBAXIN) 500 mg tablet [Pharmacy Med Name: METHOCARBAMOL 500 MG TABLET] 45 tablet 2 Sig: TAKE 1 TABLET BY MOUTH TWICE A DAY NEEDED Pharmacy Name: [facility] 03-13-2025 Miscellaneous Notes Physician: Eliceo Call from pharmacy requesting refill. Please E-Scribe Last OV: 01/06/2025 with Juan Luisdamarie Future OV: Not Scheduled. Requested Prescriptions Pending Prescriptions Disp Refills methocarbamol (ROBAXIN) 500 mg tablet [Pharmacy Med Name: METHOCARBAMOL 500 MG TABLET] 45 tablet 2 Sig: TAKE 1 TABLET BY MOUTH TWICE A DAY NEEDED Pharmacy Name: [facility] documented in this encounter [facility] 03-13-2025 Evaluation note Type assessment Encounter for Depo-Provera contr aception [facility] Work Phone: [phone] Telephone encounter Note* Telephone Encounter - Mario Alberto Phillips RN - 03/08/2025 4:18 PM EDT Images from the original note were not included. [facility]06-25-2025 Miscellaneous Notes* Telephone Encounter - Mario Alberto Phillips RN - 03/08/2025 4:18 PM EDT Images from the original note were not included. [facility] encounter Note * Telephone Encounter - Zeinab Wood MD - 03/06/2025 12:40 PM EDT The following approved medication requests have been transmitted electronically. Requested Prescriptions Pending Prescriptions Disp Refills DULoxetine (CYMBALTA) 60 mg capsule [Pharmacy Med Name: DULOXETINE HCL DR 60 MG CAP] 90 capsule 2 Sig: TAKE 1 CAPSULE BY MOUTH EVERY DAY Zeinab Wood MD [facility]06-23-2025 Miscellaneous Notes* Telephone Encounter - Zeinab Wood MD - 03/06/2025 12:40 PM EDT The following approved medication requests have been transmitted electronically. Requested Prescriptions Pending Prescriptions Disp Refills DULoxetine (CYMBALTA) 60 mg capsule [Pharmacy Med Name: DULOXETINE HCL DR 60 MG CAP] 90 capsule 2 Sig: TAKE 1 CAPSULE BY MOUTH EVERY DAY Zeinab Wood MD * Telephone Encounter - Chantal Chan MA - 03/06/2025 10:30 AM EDT Images from the original note were not included. Most recent Rheumatology visit: 12/28/2024 (with Zeinab Wood) Last Bone Density on file: None on file Rheumatology Care Team: None on file Recent Office Visits - This Specialty 12/28/2024 Inflammatory arthritis Rheumatology Zeinab Wood MD 05/30/2024 Inflammatory arthritis Rheumatology Zeinab Wood MD 09/28/2023 Inflammatory arthritis Rheumatology Zeinab Wood MD Upcoming Rheumatology Appointments - Next 365 Days Visit Type Date Time Department [facility] 06/22/2025 2:20 PM [facility] Last Ophthalmology Check for Plaquenil (Hydroxychloroquine) [...] 3 months 09/06/25 09/09/24 02/14/25 Auth. provider: Zeinab Wood MD Assoc. diagnoses: Inflammatory arthritis ALANINE AMINOTRANSFERASE / SGPT [SQALT] 3/4 Every 3 months 09/06/25 09/09/24 02/14/25 Auth. provider: Zeinab Wood MD Assoc. diagnoses: Inflammatory arthritis COMPLETE BLOOD COUNT [SQCBC] 3/4 Every 3 months 09/06/25 09/09/24 02/14/25 Auth. provider: Zeinab Wood MD Assoc. diagnoses: Inflammatory arthritis SEDIMENTATION RATE, WESTERGREN [SQWSR] 3/4 Every 3 months 09/06/25 09/09/24 02/14/25 Auth. provider: Zeinab Wood MD Assoc. diagnoses: Inflammatory arthritis C-REACTIVE PROTEIN [SQCRP] 3/4 Every 3 months 09/06/25 09/09/24 02/14/25 Auth. provider: Zeinab Wood MD Assoc. diagnoses: Inflammatory arthritis ASPARTATE AMINOTRANSFERASE/SGOT [SQAST] 3/4 Every 3 months 10/10/25 10/10/24 02/14/25 Auth. provider: Zeinab Wood MD Assoc. diagnoses: Encounter for medication monitoring ALANINE AMINOTRANSFERASE / SGPT [SQALT] 3/4 Every 3 months 10/10/25 10/10/24 02/14/25 Auth. provider: Zeinab Wood MD Assoc. diagnoses: Encounter for medication monitoring COMPLETE BLOOD COUNT [SQCBC] 3/4 Every 3 months 10/10/25 10/10/24 02/14/25 Auth. provider: Zeinab Wood MD Assoc. diagnoses: Encounter for medication monitoring SEDIMENTATION RATE, WESTERGREN [SQWSR] 3/4 Every 3 months 10/10/25 10/10/24 02/14/25 Auth. provider: Zeinab Wood MD Assoc. diagnoses: Encounter for medication monitoring C-REACTIVE PROTEIN [SQCRP] 3/4 Every 3 months 10/10/25 10/10/24 02/14/25 Auth. provider: Zeinab Wood MD Assoc. diagnoses: Encounter for medication monitoring Open Future (Single Instance) Lab Orders Expected Expires Ordered BASIC METABOLIC PANEL [SQBMP] 01/13/25 04/14/25 01/13/25 Auth. provider: Erik Pineda MD Assoc. diagnoses: Intracranial meningioma (HCC), Preop testing COMPLETE BLOOD COUNT [SQCBC] 01/13/25 04/14/25 01/13/25 Auth. provider: Erik Pineda MD Assoc. diagnoses: Intracranial meningioma (HCC), Preop testing HCG, QUALITATIVE, URINE [SQUHCG] 01/13/25 04/14/25 01/13/25 Auth. provider: Erik Pineda MD Assoc. diagnoses: Intracranial meningioma (HCC), Preop testing [facility] NoteHNO ID: [id number] Author: MARIO ALBERTO PHILLIPS RN Service: ? 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 She is doing well. Headaches are getting better . She is taking Tylenol as needed. We also discussed alternating Ibuprofen w/ Tylenol. Denied changes in vision. Karishma-orbital swelling from 03/02/25 has improved after the patient avoided sleeping flat. The surgical incision appeared to be red. Tenderness was noted proximal to the ear up to mid-incision line as well as trapped fluid/ swelling underneath the demarcus. The incision was cleaned with iodine and the demarcus were removed with no difficulty. Instructions given to - keep using the baby shampoo and rub the incision gently when showering with the hands palms instead of fingers. - apply OTC bacitracin after waking up and before sleeping - Patient's eyeglasses tip was in contact with the incision / rubbing against the skin which caused a scabbing and the skin fold to dent inward. Eyeglasses tip was wrapped with sterile gauze to prevent skin contact. - Patient was instructed to monitor the incision line for worsening of the redness / tenderness. - Reviewed postop physical restrictions to stay until seeing Dr Pineda in postop follow up. - Patient asked to return to work ( this Thursday) . 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 She also asked to resume driving and drinking alcohol. - Advised to avoid alcohol given meds interaction - Patient stated that she still takes as needed at night the Robaxin. We discussed she would not be okay to drive if she is still taking this medication. - Will discuss with Dr Pineda the patient's return to work request and reach out to her through [employer] with a reply. Mario Alberto Phillips RN, [facility] History of Present illness Narrative* Mario Alberto Phillips RN - 03/06/2025 12:25 PM EDT Images from the original note were not included. 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 She is doing well. Headaches are getting better . She is taking Tylenol as needed. We also discussed alternating Ibuprofen w/ Tylenol. Denied changes in vision. Karishma-orbital swelling from 03/02/25 has improved after the patient avoided sleeping flat. The surgical incision appeared to be red. Tenderness was noted proximal to the ear up to mid-incision line as well as trapped fluid/ swelling underneath the demarcus. The incision was cleaned with iodine and the demarcus were removed with no difficulty. Instructions given to - keep using the baby shampoo and rub the incision gently when showering with the hands palms instead of fingers. - apply OTC bacitracin after waking up and before sleeping - Patient's eyeglasses tip was in contact with the incision / rubbing against the skin which causeda scabbing and the skin fold to dent inward. Eyeglasses tip was wrapped with sterile gauze to prevent skin contact. - Patient was instructed to monitor the incision line for worsening of the redness / tenderness. - Reviewed postop physical restrictions to stay until seeing Dr Pineda in postop follow up. - Patient asked to return to work ( this Thursday) . 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 She also asked to resume driving and drinking alcohol. - Advised to avoid alcohol given meds interaction - Patient stated that she still takes as needed at night the Robaxin. We discussed she would not beokay to drive if she is still taking this medication. - Will discuss with Dr Pineda the patient's return to work request and reach out to her through [employer] with a reply. Mario Alberto Phillips RN, Edging Machine Feeder * Britton Tamez LPN - 03/06/2025 10:07 AM EDT Additional intake questions: Has the patient had fever, nausea, vomiting, diarrhea, constipation, fatigue for > 1 week? No Does the patient have a decreased appetite? No Does patient want to see a Plastic Tubing Insulation Supervisor? No (yes to any of above refer patient to schedulers for dietitian appointment) ) Does patient have any new or increased numbness or tingling of extremities? No Is patient interested in fertility information? NA Does patient need any prescription refills? No Does patient have an advanced directive in place? Yes, copies are in Epic [facility] Telephone encounter Note * Telephone Encounter - Chantal Chan MA - 03/06/2025 10:30 AM EDT Images from the original note were not included. Most recent Rheumatology visit: 12/28/2024 (with Zeinab Wood) Last Bone Density on file: None on file Rheumatology Care Team: None on file Recent Office Visits - This Specialty 12/28/2024 Inflammatory arthritis Rheumatology Zeinab Wood MD 05/30/2024 Inflammatory arthritis Rheumatology Zeinab Wood MD 09/28/2023 Inflammatory arthritis Rheumatology Zeinab Wood MD Upcoming Rheumatology Appointments - Next 365 Days Visit Type Date Time Department [facility] 06/22/2025 2:20 PM [facility] Last Ophthalmology Check for Plaquenil (Hydroxychloroquine) [...] 3 months 09/06/25 09/09/24 02/14/25 Auth. provider: Zeinab Wood MD Assoc. diagnoses: Inflammatory arthritis ALANINE AMINOTRANSFERASE / SGPT [SQALT] 3/4 Every 3 months 09/06/25 09/09/24 02/14/25 Auth. provider: Zeinab Wood MD Assoc. diagnoses: Inflammatory arthritis COMPLETE BLOOD COUNT [SQCBC] 3/4 Every 3 months 09/06/25 09/09/24 02/14/25 Auth. provider: Zeinab Wood MD Assoc. diagnoses: Inflammatory arthritis SEDIMENTATION RATE, WESTERGREN [SQWSR] 3/4 Every 3 months 09/06/25 09/09/24 02/14/25 Auth. provider: Zeinab Wood MD Assoc. diagnoses: Inflammatory arthritis C-REACTIVE PROTEIN [SQCRP] 3/4 Every 3 months 09/06/25 09/09/24 02/14/25 Auth. provider: Zeinab Wood MD Assoc. diagnoses: Inflammatory arthritis ASPARTATE AMINOTRANSFERASE/SGOT [SQAST] 3/4 Every 3 months 10/10/25 10/10/24 02/14/25 Auth. provider: Zeinab Wood MD Assoc. diagnoses: Encounter for medication monitoring ALANINE AMINOTRANSFERASE / SGPT [SQALT] 3/4 Every 3 months 10/10/25 10/10/24 02/14/25 Auth. provider: Zeinab Wood MD Assoc. diagnoses: Encounter for medication monitoring COMPLETE BLOOD COUNT [SQCBC] 3/4 Every 3 months 10/10/25 10/10/24 02/14/25 Auth. provider: Zeinab Wood MD Assoc. diagnoses: Encounter for medication monitoring SEDIMENTATION RATE, WESTERGREN [SQWSR] 3/4 Every 3 months 10/10/25 10/10/24 02/14/25 Auth. provider: Zeinab Wood MD Assoc. diagnoses: Encounter for medication monitoring C-REACTIVE PROTEIN [SQCRP] 3/4 Every 3 months 10/10/25 10/10/24 02/14/25 Auth. provider: Zeinab Wood MD Assoc. diagnoses: Encounter for medication monitoring Open Future (Single Instance) Lab Orders Expected Expires Ordered BASIC METABOLIC PANEL [SQBMP] 01/13/25 04/14/25 01/13/25 Auth. provider: Erik Pineda MD Assoc. diagnoses: Intracranial meningioma (HCC), Preop testing COMPLETE BLOOD COUNT [SQCBC] 01/13/25 04/14/25 01/13/25 Auth. provider: Erik Pineda MD Assoc. diagnoses: Intracranial meningioma (HCC), Preop testing HCG, QUALITATIVE, URINE [SQUHCG] 01/13/25 04/14/25 01/13/25 Auth. provider: Erik Pineda MD Assoc. diagnoses: Intracranial meningioma (HCC), Preop testing [facility] NoteHNO ID: [id number] Author: BRITTON TAMEZ LPN Service: ? Author Type: LICENSED NURSE Type: Progress Notes Filed: 03/06/2025 14:25 Note Text: Additional intake questions: Has the patient had fever, nausea, vomiting, diarrhea, constipation, fatigue for > 1 week? No Does the patient have a decreased appetite? No Does patient want to see a Plastic Tubing Insulation Supervisor? No (yes to any of above refer patient to schedulers for dietitian appointment) ) Does patient have any new or increased numbness or tingling of extremities? No Is patient interested in fertility information? NA Does patient need any prescription refills? No Does patient have an advanced directive in place? Yes, copies are in Epic Electronically Signed By: Britton [facility] History of Present illness Narrative* Heather Moy APRN.PIE CUTTER - 03/02/2025 1:00 PM EDT Images from the original note were not included. [facility] TELE-HEALTH VISIT PROGRESS NOTE This is a virtual visit using [employer] video visit. It required patient-provider interaction for themedical decision making as documented below. I have communicated my name and active licensure. The patient's identity and physical location wereverified at the time of this visit. Either the patient or their legal labor relations representative has been informed of the risks and benefits of -- and alternatives to -- treatment through a remote evaluation andconsents to proceed with the evaluation remotely. Persons Present: Patient Chief Complaint/Reason: Meningioma MEDICAL DECISION MAKING Assessment/Plan: 1. 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%) s/p Garg Grade2 gross total resection on 02/20/25 - Reviewed surgical pathology in detail today including WHO grading and Ki-67 % - Discussed post-op activity restrictions including no bending/lifting/pushing/pulling/straining - Discussed management for post-op constipation including stool softeners, proper hydration, and ambulation - Discussed elevating head when sleeping to help with facial swelling; she will trial sleeping in recliner - Images reviewed with her today including comparison to pre-op exam - Recommend follow up appointment with a new MRI brain scan in 6 months - If stable at next follow up can consider increasing interval of future follow up to 12 months - Reviewed signs and symptoms that would prompt sooner evaluation - She has our contact information and was advised to call if new symptoms, questions or concerns arise prior to next scheduled visit. - All questions were answered. Portions of this note have been copied and updated appropriately. I spent a total of 40 minutes on the date of the service which included preparing to see the patient, [id number] patient care, completing clinical documentation, obtaining and/or reviewing separately obtained history, performing a medically appropriate examination, counseling and educating the pat ient/family/caregiver, ordering medications, tests, or procedures, communicating with other HCPs (not separately reported), independently interpreting results (not separately reported), communicatingresults to the patient/family/caregiver, and care coordination (not separately reported). Heather Moy APRN.PIE CUTTER Certified Nurse Practitioner cc: Erik Pineda MD - [facility] HPI: Kourtney Novak is a pleasant is a 49 year old female who presents for evaluation of a previouslydiagnosed Right middle cranial fossa meningioma. Of note, this was initially diagnosed in 2016 during work-up of headaches. She was unaware of the tumor at this time and did not follow-up. Most recently, in NovemberApril 2023 had repeat scan for imbalance and trouble thinking and the above mass was noted to have growth. She was seen by Dr. Laron Lou in May 2023 for opinion and recommendation was made for neurosurgical evaluation. She was seen for neurosurgical consultation by Dr. Erik Pineda in June 2023 at which time recommendation was made for observation vs surgery. Ultimately, she elected surgery and is s/p Right frontotemporal craniotomy for Garg Grade 2 resection (gross total resection of tumor) of skull base tumor by Dr. Pineda on 02/20/25. Final surgical pathology showed: Meningothelial meningioma (WHO grade I, Ki-67 2-3%) . Interval history: 03/02/25 Using Tylenol for headache management; last night headache seemed worse. Descries some numbness on Right side of face. This morning when she woke up her eye was swollen but better now as she is up and moving. Jaw discomfort is improving. 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 ROS: Neurological : + Complaint of headaches, as above + Complaint of tinnitus, transient, Right side No complaint of decreased hearing No complaint of diplopia No complaints of blurred vision No complaint of vision loss + Complaint of arm/leg numbness or tingling No problem with limb coordination or imbalance No complaint of syncope or LOC or falls No complaint of seizures or unresponsiveness No complaints of memory changes, confusion, or disorientation. General : + HLP (on Simvastatin) + Constipation (on Senna & Amitiza) + DM (on Actos & Metformin & Farxiga) + Nausea (on Zofran prn) + OAB (on Myrbetriq) + Thyroid (on Synthroid) + Anxiety (on Lamictal) + Fibromyalgia (on Cymbalta) + Arthralgias/myalgias (on Plaquenil) + Sweating (on Robinul) + Mood disorder (on Doxipen) Physical examination: Patient is in no distress. Mental status: Clear Speech: Fluent. EOMI without diplopia Face symmetric with smile, swelling noted on Right side of face with linear indention from glasses Data Reviewed: Most recent imaging: IMPRESSION: Expected postoperative changes from right sphenoid wing and middle cranial fossa mass resection. No residual mass or pathologic enhancement. 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 Transcribe Date/Time: Feb 21 2025 11:17A Dictated by : CHIKA RUBY MD This examination was interpreted and the report reviewed and electronically signed by: TOMAS TAMEZ MD on Feb 21 2025 11:58AM EST Pathology: FINAL DIAGNOSIS A. Right middle sphenoid wing region, excision: - Morphologically consistent with meningothelial meningioma, WHO grade 1 at 1536 EDT Diagnosis Comment Immunohistochemical staining of the tumor with antibodies to SSTR2a and MT was performed on block A1. The tumor shows positive staining with both antibodies, consistent with the diagnosis. A Ki-67 index of approximately 2-3% is focally noted. Gross Description A. Brain, Resection Received in formalin, labeled as brain resection, right middle sphenoid wing tumor is a single braynt-brown irregular rubbery tissue measuring 2.1 x 1.3 x 0.5 cm. Sectioning reveals bryant-davidson homogenous cut surfaces. Totally submitted in cassettes A1-A2. CG February 21, 2025 10:13 AM Gross examination performed at [facility], [address] [place] [address], [place] [address] Clinical History Pre-op diagnosis: Intracranial meningioma (HCC) [D32.0] Preop testing [Z01.818] Performing Lab Diagnostic interpretation performed at: [facility], [address] [place] [address], [address] [address] CLIA# [id number] Delivery Man: Charan Ryan MD Disclaimer Laboratory Developed Test (LDT) Disclaimer: Performance characteristics of immunohistochemical, immunofluorescent, and chromogenic in-situ hybridization tests have been determined by the performing laboratory within [facility]'s [facility] Pathology and Laboratory Medicine Department ([facility], [facility], [facility], [facility], [facility], [facility], or [facility]) in a manner consistent with CLIA requirements. One or more of these tests may not have been cleared or approved by the FDA. [facility] is regulated under CLIA as qualified to perform high- complexity testing. These tests are used for clinical purposes. These should not be regarded asinvestigational or for research. Positive and negative controls stain appropriately. KPS: 90 documented in [facility]06-[facility]25 NoteHNO ID: [id number] Author: HEATHER MOY APRN.CNP Service: ? Author Type: Nurse Practitioner Type: Progress Notes Filed: 03/02/2025 13:22 Note Text: [facility] TELE-HEALTH VISIT PROGRESS NOTE This is a virtual visit using [employer] video visit. It required patient-provider interaction for the medical decision making as documented below. I have communicated my name and active licensure. The patient's identity and physical location were verified at the time of this visit. Either the patient or their legal labor relations representative has been informed of the risks and benefits of -- and alternatives to -- treatment through a remote evaluation and consents to proceed with the evaluation remotely. Persons Present: Patient Chief Complaint/Reason: Meningioma MEDICAL DECISION MAKING Assessment/Plan: 1. 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%) s/p Garg Grade 2 gross total resection on 02/20/25 - Reviewed surgical pathology in detail today including WHO grading and Ki-67 % - Discussed post-op activity restrictions including no bending/lifting/pushing/pulling/straining - Discussed management for post-op constipation including stool softeners, proper hydration, and ambulation - Discussed elevating head when sleeping to help with facial swelling; she will trial sleeping in recliner - Images reviewed with her today including comparison to pre-op exam - Recommend follow up appointment with a new MRI brain scan in 6 months - If stable at next follow up can consider increasing interval of future follow up to 12 months - Reviewed signs and symptoms that would prompt sooner evaluation - She has our contact information and was advised to call if new symptoms, questions or concerns arise prior to next scheduled visit. - All questions were answered. Portions of this note have been copied and updated appropriately. I spent a total of 40 minutes on the date of the service which included preparing to see the patient, [id number] patient care, completing clinical documentation, obtaining and/or reviewing separately obtained history, performing a medically appropriate examination, counseling and educating the patient/family/caregiver, ordering medications, tests, or procedures, communicating with other HCPs (not separately reported), independently interpreting results (not separately reported), communicating results to the patient/family/caregiver, and care coordination (not separately reported). Heather Moy APRN.[facility] Certified Nurse Practitioner cc: Erik Pineda MD - [facility] HPI: Kourtney Novak is a pleasant is a 49 year old female who presents for evaluation of a previously diagnosed Right middle cranial fossa meningioma. Of note, this was initially diagnosed in 2016 during work-up of headaches. She was unaware of the tumor at this time and did not follow-up. Most recently, in NovemberApril 2023 had repeat scan for imbalance and trouble thinking and the above mass was noted to have growth. She was seen by Dr. Laron Lou in May 2023 for opinion and recommendation was made for neurosurgical evaluation. She was seen for neurosurgical consultation by Dr. Erik Pineda in June 2023 at which time recommendation was made for observation vs surgery. Ultimately, she elected surgery and is s/p Right frontotemporal craniotomy for Garg Grade 2 resection (gross total resection of tumor) of skull base tumor by Dr. Pineda on 02/20/25. Final surgical pathology showed: Meningothelial meningioma (WHO grade I, Ki-67 2-3%) . Interval history: 03/02/25 Using Tylenol for headache management; last night headache seemed worse. Descries some numbness on Right side of face. This morning when she woke up her eye was swollen but better now as she is up and moving. Jaw discomfort is improving. 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 ROS: Neurological : + Complaint of headaches, as above + Complaint of tinnitus, transient, Right side No complaint of decreased hearing No complaint of diplopia No complaints of blurred vision No complaint of vision loss + Complaint of arm/leg numbness or tingling No problem with limb coordination or imbalance No complaint of syncope or LOC or falls No complaint of seizures or unresponsiveness No complaints of memory changes, confusion, or disorientation. General : + HLP (on Simvastatin) + Constipation (on Senna AND Amitiza) + DM (on Actos AND Metformin AND Farxiga) + Nausea (on Zofran prn) + OAB (on Myrbetriq) + Thyroid (on Synthroid) + Anxiety (on Lamictal) + Fibromyalgia (on Cymbalta) + Arthralgias/myalgias (on Plaquenil) + Sweating (on Robinul) + Mood disorder (on Doxipen) Physical examination: Patient is in no distress. Mental status: Clear Speech: Fluent. EOMI without diplopia Face symmetric with smile (more content not included)...[facility]06-16-2025 Telephone encounter Note* Telephone Encounter - Zeinab Wood MD - 02/27/2025 2:51 PM EDT The following approved medication requests have been transmitted electronically. Requested Prescriptions Signed Prescriptions Disp Refills etodolac (LODINE) 400 mg tablet 60 tablet 3 Sig: TAKE 1 TABLET BY MOUTH TWICE A DAY NEEDED Authorizing Provider: ZEINAB WOOD predniSONE (DELTASONE) 5 mg tablet 60 tablet 3 Sig: TAKE 1 TO 2 TABLETS BY MOUTH EVERY DAY Authorizing Provider: ZEINAB WOOD MD [facility]06-16-2025 Miscellaneous Notes* Telephone Encounter - Zeinab Wood MD - 02/27/2025 2:51 PM EDT The following approved medication requests have been transmitted electronically. Requested Prescriptions Signed Prescriptions Disp Refills etodolac (LODINE) 400 mg tablet 60 tablet 3 Sig: TAKE 1 TABLET BY MOUTH TWICE A DAY NEEDED Authorizing Provider: ZEINAB WOOD predniSONE (DELTASONE) 5 mg tablet 60 tablet 3 Sig: TAKE 1 TO 2 TABLETS BY MOUTH EVERY DAY Authorizing Provider: ZEINAB WOOD MD * Telephone Encounter - Michelle Thompson MA - 02/24/2025 12:08 PM EDT Images from the original note were not included. Most recent Rheumatology visit: 12/28/2024 (with Zeinab Wood) Last Bone Density on file: None on file Rheumatology Care Team: None on file Recent Office Visits - This Specialty 12/28/2024 Inflammatory arthritis Rheumatology Zeinab Wood MD 05/30/2024 Inflammatory arthritis Rheumatology Zeinab Wood MD 09/28/2023 Inflammatory arthritis Rheumatology Zeinab Wood MD Upcoming Rheumatology Appointments - Next 365 Days Visit Type Date Time Department [facility] 06/22/2025 2:20 PM [facility] Last Ophthalmology Check for Plaquenil (Hydroxychloroquine) [...] 3 months 09/06/25 09/09/24 02/14/25 Auth. provider: Zeinab Wood MD Assoc. diagnoses: Inflammatory arthritis ALANINE AMINOTRANSFERASE / SGPT [SQALT] 3/4 Every 3 months 09/06/25 09/09/24 02/14/25 Auth. provider: Zeinab Wood MD Assoc. diagnoses: Inflammatory arthritis COMPLETE BLOOD COUNT [SQCBC] 3/4 Every 3 months 09/06/25 09/09/24 02/14/25 Auth. provider: Zeinab Wood MD Assoc. diagnoses: Inflammatory arthritis SEDIMENTATION RATE, WESTERGREN [SQWSR] 3/4 Every 3 months 09/06/25 09/09/24 02/14/25 Auth. provider: Zeinab Wood MD Assoc. diagnoses: Inflammatory arthritis C-REACTIVE PROTEIN [SQCRP] 3/4 Every 3 months 09/06/25 09/09/24 02/14/25 Auth. provider: Zeinab Wood MD Assoc. diagnoses: Inflammatory arthritis ASPARTATE AMINOTRANSFERASE/SGOT [SQAST] 3/4 Every 3 months 10/10/25 10/10/24 02/14/25 Auth. provider: Zeinab Wood MD Assoc. diagnoses: Encounter for medication monitoring ALANINE AMINOTRANSFERASE / SGPT [SQALT] 3/4 Every 3 months 10/10/25 10/10/24 02/14/25 Auth. provider: Zeinab Wood MD Assoc. diagnoses: Encounter for medication monitoring COMPLETE BLOOD COUNT [SQCBC] 3/4 Every 3 months 10/10/25 10/10/24 02/14/25 Auth. provider: Zeinab Wood MD Assoc. diagnoses: Encounter for medication monitoring SEDIMENTATION RATE, WESTERGREN [SQWSR] 3/4 Every 3 months 10/10/25 10/10/24 02/14/25 Auth. provider: Zeinab Wood MD Assoc. diagnoses: Encounter for medication monitoring C-REACTIVE PROTEIN [SQCRP] 3/4 Every 3 months 10/10/25 10/10/24 02/14/25 Auth. provider: Zeinab Wood MD Assoc. diagnoses: Encounter for medication monitoring Open Future (Single Instance) Lab Orders Expected Expires Ordered BASIC METABOLIC PANEL [SQBMP] 01/13/25 04/14/25 01/13/25 Auth. provider: Erik Pineda MD Assoc. diagnoses: Intracranial meningioma (HCC), Preop testing COMPLETE BLOOD COUNT [SQCBC] 01/13/25 04/14/25 01/13/25 Auth. provider: Erik Pineda MD Assoc. diagnoses: Intracranial meningioma (HCC), Preop testing HCG, QUALITATIVE, URINE [SQUHCG] 01/13/25 04/14/25 01/13/25 Auth. provider: Erik Pineda MD Assoc. diagnoses: Intracranial meningioma (HCC), Preop testing [facility] Telephone encounter Note * Telephone Encounter - Michelle Thompson MA - 02/24/2025 12:08 PM EDT Images from the original note were not included. Most recent Rheumatology visit: 12/28/2024 (with Zeinab Wood) Last Bone Density on file: None on file Rheumatology Care Team: None on file Recent Office Visits - This Specialty 12/28/2024 Inflammatory arthritis Rheumatology Zeinab Wood MD 05/30/2024 Inflammatory arthritis Rheumatology Zeinab Wood MD 09/28/2023 Inflammatory arthritis Rheumatology Zeinab Wood MD Upcoming Rheumatology Appointments - Next 365 Days Visit Type Date Time Department [facility] 06/22/2025 2:20 PM [facility] Last Ophthalmology Check for Plaquenil (Hydroxychloroquine) [...] 3 months 09/06/25 09/09/24 02/14/25 Auth. provider: Zeinab Wood MD Assoc. diagnoses: Inflammatory arthritis ALANINE AMINOTRANSFERASE / SGPT [SQALT] 3/4 Every 3 months 09/06/25 09/09/24 02/14/25 Auth. provider: Zeinab Wood MD Assoc. diagnoses: Inflammatory arthritis COMPLETE BLOOD COUNT [SQCBC] 3/4 Every 3 months 09/06/25 09/09/24 02/14/25 Auth. provider: Zeinab Wood MD Assoc. diagnoses: Inflammatory arthritis SEDIMENTATION RATE, WESTERGREN [SQWSR] 3/4 Every 3 months 09/06/25 09/09/24 02/14/25 Auth. provider: Zeinab Wood MD Assoc. diagnoses: Inflammatory arthritis C-REACTIVE PROTEIN [SQCRP] 3/4 Every 3 months 09/06/25 09/09/24 02/14/25 Auth. provider: Zeinab Wood MD Assoc. diagnoses: Inflammatory arthritis ASPARTATE AMINOTRANSFERASE/SGOT [SQAST] 3/4 Every 3 months 10/10/25 10/10/24 02/14/25 Auth. provider: Zeinab Wood MD Assoc. diagnoses: Encounter for medication monitoring ALANINE AMINOTRANSFERASE / SGPT [SQALT] 3/4 Every 3 months 10/10/25 10/10/24 02/14/25 Auth. provider: Zeinab Wood MD Assoc. diagnoses: Encounter for medication monitoring COMPLETE BLOOD COUNT [SQCBC] 3/4 Every 3 months 10/10/25 10/10/24 02/14/25 Auth. provider: Zeinab Wood MD Assoc. diagnoses: Encounter for medication monitoring SEDIMENTATION RATE, WESTERGREN [SQWSR] 3/4 Every 3 months 10/10/25 10/10/24 02/14/25 Auth. provider: Zeinab Wood MD Assoc. diagnoses: Encounter for medication monitoring C-REACTIVE PROTEIN [SQCRP] 3/4 Every 3 months 10/10/25 10/10/24 02/14/25 Auth. provider: Zeinab Wood MD Assoc. diagnoses: Encounter for medication monitoring Open Future (Single Instance) Lab Orders Expected Expires Ordered BASIC METABOLIC PANEL [SQBMP] 01/13/25 04/14/25 01/13/25 Auth. provider: Erik Pineda MD Assoc. diagnoses: Intracranial meningioma (HCC), Preop testing COMPLETE BLOOD COUNT [SQCBC] 01/13/25 04/14/25 01/13/25 Auth. provider: Erik Pineda MD Assoc. diagnoses: Intracranial meningioma (HCC), Preop testing HCG, QUALITATIVE, URINE [SQUHCG] 01/13/25 04/14/25 01/13/25 Auth. provider: Erik Pineda MD Assoc. diagnoses: Intracranial meningioma (HCC), Preop testing [facility]06-12[facility] Telephone encounter Note* Telephone Encounter - Mario Alberto Phillips RN - 02/23/2025 11:24 AM EDT Images from the original note were not included. 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 Reviewed med list and sent patient a [employer] message for alternating Ibuprofen and Tylenol for headache/pain as needed Confirmed postop appointments Patient was made aware to reach out for questions/ concerns/updates. Mario Alberto Phillips RN, Edging Machine Feeder [facility]06-12-2025 Telephone encounter Note* Telephone Encounter - Mario Alberto Phillips RN - 02/23/2025 11:24 AM EDT General Call Caller : Pt Contact Reason for Call : Pt has question regards oxycodone meds. Patient requesting return call ? Yes [facility]06-12-2025 Miscellaneous Notes* Telephone Encounter - Mario Alberto Phillips RN - 02/23/2025 11:24 AM EDT Images from the original note were not included. 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 Reviewed med list and sent patient a [employer] message for alternating Ibuprofen and Tylenol for headache/pain as needed Confirmed postop appointments Patient was made aware to reach out for questions/ concerns/updates. Mario Alberto Phillips RN, Edging Machine Feeder * Telephone Encounter - Mario Alberto Phillips RN - 02/23/2025 11:24 AM EDT General Call Caller : Pt Contact Reason for Call : Pt has question regards oxycodone meds. Patient requesting return call ? Yes * Telephone Encounter - Kaci Maya - 02/23/2025 9:46 AM EDT General Call Caller : Pt Contact Reason for Call : Pt has question regards oxycodone meds. Patient requesting return call ? Yes documented in [facility]06-[facility] Telephone encounter Note * Telephone Encounter - Kaci Maya - 02/23/2025 9:46 AM EDT General Call Caller : Pt Contact Reason for Call : Pt has question regards oxycodone meds. Patient requesting return call ? Yes [facility]06-11-2025 NoteHNO ID: [id number] Author: DAYANNA CLEMENTE, Mookie Service: Pharmacy Author Type: Itinerant Teacher Assistant Type: Plan of Care Filed: 02/22/2025 12:08 Note Text: PHARMACY BEDSIDE DELIVERY SERVICE Patient Name: Kourtney Novak The marked outpatient medications were Filled at: [facility] and delivered to the patient's bedside to patient Medication List START taking these medications acetaminophen 325 mg tablet Commonly known as: TYLENOL 2 tablets by ORAL/FEEDING TUBE route every 4 hours as needed for pain. Start taking on: February 23, 2025 MEDICATION: OTC dexAMETHasone 2 mg tablet Commonly known as: DECADRON Take 4 tablets by mouth two times a day with meals for 1 day, THEN 3 tablets two times a day with meals for 2 days, THEN 2 tablets two times a day with meals for 2 days, THEN 1 tablet two times a day with meals for 1 day, THEN 1 tablet daily with breakfast for 1 day. Start taking on: February 22, 2025 MEDICATION: DELIVERED levETIRAcetam 1,000 mg tablet Commonly known as: KEPPRA Take 1 tablet by mouth two times a day for 12 doses. MEDICATION: DELIVERED oxyCODONE IR 5 mg immediate release tablet Commonly known as: ROXICODONE Take 1 tablet by mouth every 8 hours as needed for up to 3 doses. MEDICATION: DELIVERED STOOL SOFTENER-STIMULANT LAXAT 8.6-50 mg per tablet Generic drug: senna-docusate Take 1 tablet by mouth two times a day as needed for constipation. MEDICATION: DELIVERED CHANGE how you take these medications methocarbamol 500 mg tablet Commonly known as: ROBAXIN Take 1 tablet by mouth four times a day as needed (muscle spasm, jaw pain). What changed: when to take this reasons to take this CONTINUE taking these medications AMITIZA 24 mcg capsule Generic drug: lubiprostone budesonide 1 mg/2 mL nebulizer solution Commonly known as: PULMICORT dapagliflozin propanediol 5 mg tablet Commonly known as: FARXIGA DEPO-PROVERA 150 mg/mL injection Generic drug: medroxyPROGESTERone DEXILANT 60 mg Cpdm Generic drug: Dexlansoprazole doxepin 10 mg capsule Commonly known as: SINEquan * DULoxetine 60 mg capsule Commonly known as: CYMBALTA Take 1 capsule by mouth once daily. * DULoxetine 30 mg capsule Commonly known as: CYMBALTA Take one tab along with the 60mg tab to equal 90mg po qd etodolac 400 mg tablet Commonly known as: LODINE One tab po bid prn glycopyrrolate 1 mg tablet Commonly known as: ROBINUL hydrOXYchloroQUINE 200 mg tablet Commonly known as: PLAQUENIL Take 1 tablet by mouth two times a day. ipratropium-albuterol 0.5 mg-3 mg(2.5 mg base)/3 mL Nebu Commonly known as: DUONEB lamoTRIgine 200 mg tablet Commonly known as: LaMICtal metFORMIN 500 mg tablet Commonly known as: GLUCOPHAGE MYRBETRIQ 50 mg Tb24 Generic drug: mirabegron ondansetron orally disintegrating 4 mg disintegrating tablet Commonly known as: ZOFRAN ODT pioglitazone 15 mg tablet Commonly known as: ACTOS predniSONE 5 mg tablet Commonly known as: DELTASONE TAKE 1 TO 2 TABLETS BY MOUTH EVERY DAY simvastatin 20 mg tablet Commonly known as: ZOCOR SYNTHROID 50 mcg tablet Generic drug: levothyroxine TESSALON PERLES ORAL * This list has 2 medication(s) that are the same as other medications prescribed for you. Read the directions carefully, and ask your doctor or other care provider to review them with you. You might also be taking other medications not listed above. If you have questions about any of your other medications, talk to the person who prescribed them or your Primary Care Provider. Dayanna Clemente PAGER: February 22, 2025 10:56 [facility]06-11-2025 NoteHNO ID: [id number] Author: DAYANNA CLEMENTE, ? Service: Pharmacy Author Type: Itinerant Teacher Assistant Type: Plan of Care Filed: 02/22/2025 10:56 Note Text: Insurance investigation completed Patient has active prescription insurance: Yes - Patient's insurance is in-network with F Insurance loaded into [place]: Yes Test claim was completed to verify insurance is active: Successful Any questions, please reach out to your medication parachute accessories attacher.[facility]06-10-2025 NoteHNO ID: [id number] Author: HERSON OZUNA RN Service: Nursing Author Type: Registered Nurse Type: Progress Notes Filed: 02/21/2025 20:22 Note Text: At 16:15 PM, Received report from [facility] [place]. At 17:00 PM, Patient transferred to the nursing division.[facility]06-10-2025 NoteHNO ID: [id number] Author: JOVANNY CHRISTENSEN RN Service: Care Management Author Type: Registered Nurse Type: Care Mgt Initial Assessment Filed: 02/21/2025 15:16 Note Text: CARE MANAGEMENT: ASSESSMENT AND DISCHARGE PLAN SERVICE DATE: February 21, 2025 SERVICE TIME: 3:14 PM PCP: Sammie Gonzalez MD Primary Contact: Extended Emergency Contact Information Primary Emergency Contact: ParveenChristiano Address: [address] [place] [address] Mobile Relation: Son Secondary Emergency Contact: Laith Saini Address: [address] [place] [address] Mobile Relation: Son Admission Status: Inpatient Insurance Provider: [employer] HMO Discharge Planning requested by: Per Department Practice Potential Transition Plans Home Advance Directives Current Advance Directive: None Cassandra of Choice Explained: Cassandra of Choice Given: No Reason Not Given: No placements necessary Needs Prior to Discharge: Needs Prior to Discharge: To Be Determined Post-Acute Discharge Plan: This patient has been screened for Care Management Transitional Planning Services. At this time, it does not appear this patient will require transition planning services. Should this change, and the patient require transition planning services during this admission, please contact Case Management. Chart reviewed. PT consults - no home skilled PT needs. OT pending. Pt has a 6-click score of 23. Pt on Room Air. Pt is not on any notable IVATB meds at this time. Discharge TBD pending medical course. No skilled needs anticipated at this time SIGNATURE: Jovanny Christensen RN PATIENT NAME: Kourtney Novak DATE: February 21, 2025 TIME: 3:14 [facility]06-10-2025 NoteHNO ID: [id number] Author: GLORIA PEÑALOZA PA-C Service: Neurosurgery Author Type: Physician Flexboard Operator Type: Progress Notes Filed: 02/21/2025 12:40 Note Text: SERVICE DATE: 02/21/2025 SERVICE TIME: 8:19 AM NEUROSURGERY SKULL BASE INPATIENT PROGRESS NOTE Please contact NSGY provider [place] [phone] for questions/concerns about this patient from 3PM through 6AM and on weekends. 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 She denies nausea, has not yet been OOB. Patient was updated with Dr. Pineda on rounds- discussed plans for adjusting muscle relaxers for pain control, removing catheter, MRI and OOB today. Patient is in agreement and is neurologically stable with no new deficits. Overnight events noted were none. Objective PHYSICAL EXAM: GENERAL: A AND O x 3, awake and alert. Speech is Normal, full, fluent. Appears stated age, well built, in no apparent distress. PSYCHIATRIC: Mood and affect: Appropriate. SKIN: Inspection: No evidence of eythema, warmth Positive: Appropriate c/d/i postop dressing. CARDIOVASCULAR: Telemetry: normal sinus rhythm RESPIRATORY: unlabored breathing ABDOMEN: Soft and Non-tender NEUROLOGY: Motor: UE BICEPS TRICEPS DELTS Slubber Frame Changer HI R 5/5 5/5 5/5 5/5 5/5 L 5/5 5/5 5/5 5/5 5/5 LE Hip Flex Knee Flex Knee Extend Plantarflex Dorsiflex EHL R 5/5 5/5 5/5 5/5 5/5 5/5 L 5/5 5/5 5/5 5/5 5/5 5/5 Sensory: intact.Gait: not assessed. There was no drift bilaterally on pronator drift testing. CRANIAL NERVES: Pupils: OD Right: 3 mm Reactive OS Left: 3 mm Reactive II Visual white: are full to confrontation III, IV, EOM full V Facial sensation normal VII Normal strength VIII Normal bilaterally IX, X Normal, midline palatal rise XI Symmetric shrug, and head rotation XII Tongue midline, mobile Vitals: 02/21/25 0800 02/21/25 0815 02/21/25 0955 02/21/25 1037 BP: 123/78 124/80 126/69 Pulse: 89 92 91 Resp: 16 Temp: 36.4 ?C (97.6 ?F) TempSrc: Oral SpO2: 100% 98% Weight: Height: Intake AND Output Intake/Output Summary (Last 24 hours) at 02/21/2025 1225 Last data filed at 02/21/2025 1100 Gross per 24 hour Intake 5640 ml Output 8585 ml Net -2945 ml Drains: Lines, Drains, and Airways Line Duration Peripheral 02/20/25 1142 Left Forearm 18 Gauge 1 day Peripheral 02/20/25 1245 [facility] Short Right Hand 18 Gauge <1 day Drain Duration Indwelling Urinary Catheter 02/20/25 1301 [facility] Nieves 16 Fr <1 day LABS: Na: Recent Labs 02/21/25 0437 02/20/25 1143 NA 138 137 1. Out of bed and ambulating: No Needs PT or OT Evaluation: No 2. Central line present? No 3. Continued need for urinary catheter? D/C Urinary Catheter 4. Nutrition: PO- Yes. 5. Restraints No. 6. 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) 02/21/2025 - Present Yes Current Assessment AND Plan R/t meningioma, noted on preop MRI See meningioma POC Mixed hyperlipidemia Unknown - Present Yes Current Assessment AND Plan Treating with home statin * (Principal) Meningioma (HCC) 02/20/2025 - Present Yes Current Assessment AND Plan 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 Evaluating with posotp MRI Pain control: ATC APAP x48h, robaxin Mobilize, OOB for meals Hypothyroidism 02/14/2025 - Present Yes Current Assessment AND Plan Treating with home synthroid 50mcg qday GERD (gastroesophageal reflux disease) 02/14/2025 - Present Yes Current Assessment AND Plan Treating with PPI Fibromyalgia Unknown - Present Yes Current Assessment AND Plan Treating with home Rx Diabetes mellitus (HCC) Unknown - Present Yes Current Assessment AND Plan Monitoring POC glucose Treating with home farziga 5mg qday, actos 15mg qday, resume metformin 500mg qday POD2 2/2 MRI contrast CCD, SSI COPD (chronic obstructive pulmonary disease) (HCC) Unknown - Present Yes Current Assessment AND Plan Monitoring pulse ox Treating with home inhalers Class 3 severe obesity due to excess calories with serious comorbidity and body mass index (BMI) of 40.0 to 44.9 in adult (HCC) 02/14/2025 - Present Yes Current Assessment AND Plan [facility] nutrition education Cerebral edema (HCC) 02/21/2025 - Present Yes Current Assessment AND Plan Clinically significant cerebral edema treating with decadron 8bid (SSI, PPI) with manager intermediate taper plan off over 1 week At risk for seizures 02/21/2025 - Pre (more content not included)...[facility]06-10-2025 NoteHNO ID: [id number] Author: ERIK PINEDA MD Service: Neurosurgery Author Type: Physician Type: Progress Notes Filed: 02/21/2025 09:11 Note Text: Neurosurgery Staff Progress Note Subjective: Has some soreness in the right temporal area. Otherwise feeling well. Denies numbness in the face. Physical Exam: BP 123/59 Pulse 89 Temp 36.6 ?C (97.9 ?F) (Oral) Resp 24 Ht 165.1 cm (5' 5 ) Wt 110.8 kg (244 lb 4.3 oz) SpO2 97% BMI 40.65 kg/m? Awake, alert, oriented x 3 Fluent speech EOMI Face sensation symmetric to light touch in V1 through V3 Face -symmetric Tongue Midline, Moving all extremities symmetrically No pronator drift Dressing: c/d/i A/P Postop Day 1 s/p Right craniotomy for resection of middle fossa meningioma, doing well -Postoperative MRI - Keppra x 1 week - Decadron taper to off over 1 week for cerebral edema - DC Nieves - Mobilize - If progressing well, likely discharge home tomorrow - Progress discussed with patient at bedside Erik Pineda MD Date: 02/21/2025 Time: 9:02 [facility]06-09-2025 NoteHNO ID: [id number] Author: TWYLA COOLEY MD Service: Neurosurgery Author Type: Resident Type: Progress Notes Filed: 02/20/2025 16:51 Note Text: Neurosurgery Post-op Check Note Subjective: POC Objective: EXAM: Awakening from anesthesia Following commands PERRL, EOMI FS, TM, facial sensation intact No drift RUE: 5/5 LUE: 5/5 RLE: 5/5 LLE: 5/5 Sensation intact globally Incision c/d/I: closed w/ demarcus A/P: 49 yo female, PMH of fibromyalgia, COPD, MAREK, HLD, GERD, hypothyroidism, DM, anxiety, obesity, inflammatory arthritis presenting for R supraorbital crani for 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 POD #0 s/p R pterional crani for R sphenoid wing meningioma rsx - SDU for post op care - Dex 8 mg bid, wean to off over one week - keppra 1g bid x 7 days - Post-op labs - routine - Post-op imaging - MRI POD 1 - Post op abx: ancef x 24 hr - SBP < 160 - Pain control - SCDs only. Holding DVT chemoppxs Staff: Dr. Pineda Signature: Twyla Cooley MD PGY4, Neurosurgery [facility] On-call pager: [phone] NoteHNO ID: [id number] Author: PAULINO RAMACHANDRAN DO Service: ? Author Type: Anesthesiologist Type: Anesthesia Procedure Notes Filed: 02/20/2025 16:12 Note Text: ANESTHESIOLOGY PROCEDURE NOTE A-Line General Information Procedure Start Time/Medication Administration: 02/20/2025 12:47 PM Procedure End Time: 02/20/2025 12:50 PM Patient location during procedure: OR Timeout Performed Pre-procedure: timeout performed Consent Obtained: Yes Patient identity confirmed: arm band Indications: continuous blood pressure monitoring Staffing Anesthesiologist: Paulino Ramachandran DO Resident: Clarisa Garza MD Performed by: resident Preparation Sterility [...] below. I was present for the procedure. Paulino Ramachandran DO, Staff Anesthesiologist SIGNATURE: Clarisa Garza MD PATIENT NAME: Kourtney Novak DATE: February 20, 2025 TIME: 2:16 PM CSN: [id number][facility] NoteHNO ID: [id number] Author: CLARISA GARZA MD Service: ? Author Type: Resident Type: Anesthesia Procedure Notes Filed: 02/20/2025 14:01 Note Text: ANESTHESIOLOGY PROCEDURE NOTE Airway General Information Procedure Start Time/Medication Administration: 02/20/2025 12:43 PM Procedure End Time: 02/20/2025 12:45 PM Patient location during procedure: OR Timeout Performed Pre-procedure: timeout performed Consent Obtained: Yes Patient identity confirmed: arm band Staffing Anesthesiologist: Paulino Ramachandran DO Resident: Flower Reed DO Performed [...] Unrecognized esophageal intubation: no Airway not difficult SIGNATURE: Clarisa Garza MD PATIENT NAME: Kourtney Novak DATE: February 20, 2025 TIME: 2:00 PM CSN: [id number][facility] Telephone encounter Note* Telephone Encounter - Mario Alberto Phillips RN - 02/17/2025 3:53 PM EDT Spoke with the patient - we discusses signing the consent after she checks in for her surgery on Thursday02/20/25. [facility]06-06-2025 Miscellaneous Notes* Telephone Encounter - Mario Alberto Phillips RN - 02/17/2025 3:53 PM EDT Spoke with the patient - we discusses signing the consent after she checks in for her surgery on Thursday02/20/25. [facility] Telephone encounter Note * Telephone Encounter - Mario Alberto Phillips RN - 02/17/2025 3:49 PM EDT Called the patient for pre-op instructions. Questions pertaining to hospital stay and after hospital discharge instructions were addressed. Shewas made aware to touch base after she gets discharged home for review of hospital discharge instructions and confirming postop follow up appts. Mario Alberto Phillips RN, Edging Machine Feeder [facility]06-06-2025 Miscellaneous Notes* Telephone Encounter - Mario Alberto Phillips RN - 02/17/2025 3:49 PM EDT Called the patient for pre-op instructions. Questions pertaining to hospital stay and after hospital discharge instructions were addressed. Shewas made aware to touch base after she gets discharged home for review of hospital discharge instructions and confirming postop follow up appts. Mario Alberto Phillips RN, Edging Machine Feeder documented in this encounterHenry [facility]06-[facility] History of Present illness Narrative* Erik Pineda MD - 02/15/2025 2:30 PM EDT SECTION OF SKULL BASE SURGERY MINIMALLY INVASIVE CRANIAL BASE & PITUITARY SURGERY PROGRAM [facility] TELEMEDICINE FOLLOW-UP VISIT This is a virtual visit. It required patient-provider interaction for the medical decision making as documented below. Kourtney Novak has consented for this telemedicine encounter. I have communicated my name and active licensure. The patient's identity and physical location were verified at the time of this visit. Either the patient or their legal labor relations representative has been informed of the risks and benefits of -- and alternatives to -- treatment through a remote evaluation and consents to proceed with the evaluation remotely. 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 She was scheduled in 2023 for surgery but the patient cancelled due to family circumstances ( of mother who was on hospice). She is seen today to revisit management of her meningioma. Plan: 1. Intracranial meningioma (HCC) (D32.0) - Reviewed imaging from 2015 to present, noting slow progressive enlargement of the tumor, consistent with benign behavior. - Rediscussed treatment options: continued observation, surgical resection, and radiation therapy. - Patient has opted for surgical resection, scheduled for Thursday. - Reviewed risks and benefits of surgery, including potential for numbness or burning sensation in the midface due to nerve stretch, low likelihood of seizures, infection rates, and minimal risk of significant complications such as stroke or brain damage. - Informed patient about postoperative care: expected hospital stay of 1-2 days, MRI post-surgery, and gradual increase in activity over 4-6 weeks. - Patient advised to have someone drive for the first week postoperatively. - Consent form sent via [employer], including consent for blood transfusion if necessary. - Patient understands and agrees with the treatment plan. I spent a total of 30 minutes on the date of the service which included preparing to see the patient, [id number] patient care, completing clinical documentation, performing a medically appropriate examination, and counseling and educating the patient/family/caregiver. Erik Pineda MD Subjective: Patient is accompanied by her son Christiano . Kourtney is a 49-year-old female with a history of a tumor, presenting to discuss management and nextsteps. Kourtney has been monitoring a tumor since 2016, with imaging showing slow growth over time. She has a surgery scheduled for Thursday and prefers to proceed with it. She does not report any new symptoms or changes in her condition. 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 She has two adult children, Christiano (25) and HALLIE (27), who will be supporting her through the surgery and recovery process. Medications Current Outpatient Medications Medication Sig ondansetron orally disintegrating (ZOFRAN ODT) 4 mg disintegrating tablet Take 4 mg by mouth every 8 hours as needed. medroxyPROGESTERone (DEPO-PROVERA) 150 mg/mL injection Inject 150 mg intramuscularly every 12 weeks. mupirocin (BACTROBAN) 2 % ointment two times a day for 5 days. Apply 0.5 inch with cotton swab (Q-tip) to each nostril in the morning and evening for 5 days prior to and including day of surgery. methocarbamol (ROBAXIN) 500 mg tablet TAKE 1 [...] Take 20 mg by mouth once daily. No current facility-administered medications for this visit. Exam: Const Well appearing, NAD Neuro Awake, alert, oriented x 3 Fluent speech Face symmetric No obvious neurological deficit Data: * * *Final Report* * * DATE [...] tissue mass extending into the of the data analytics analyst or parapharyngeal spaces. The soft tissue planes of the, retropharyngeal, and prevertebral spaces are maintained. The visualized parotid glands are normal in appearance. Nasopharynx/Oropharynx: The nasopharynx and oropharynx are normal in appearance. 12/28/24 OPTH Exam ( see scanned) documented in this encounterHenry [facility]06-04-2025 NoteHNO ID: [id number] Author: ERIK PINEDA MD Service: ? Author Type: Physician Type: Progress Notes Filed: 02/15/2025 14:59 Note Text: SECTION OF SKULL BASE SURGERY MINIMALLY INVASIVE CRANIAL BASE AND PITUITARY SURGERY PROGRAM [facility] TELEMEDICINE FOLLOW-UP VISIT This is a virtual visit. It required patient-provider interaction for the medical decision making as documented below. Kourtney Novak has consented for this telemedicine encounter. I have communicated my name and active licensure. The patient's identity and physical location were verified at the time of this visit. Either the patient or their legal labor relations representative has been informed of the risks and benefits of -- and alternatives to -- treatment through a remote evaluation and consents to proceed with the evaluation remotely. 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 She was scheduled in 2023 for surgery but the patient cancelled due to family circumstances ( of mother who was on hospice). She is seen today to revisit management of her meningioma. Plan: 1. Intracranial meningioma (HCC) (D32.0) - Reviewed imaging from 2015 to present, noting slow progressive enlargement of the tumor, consistent with benign behavior. - Rediscussed treatment options: continued observation, surgical resection, and radiation therapy. - Patient has opted for surgical resection, scheduled for Thursday. - Reviewed risks and benefits of surgery, including potential for numbness or burning sensation in the midface due to nerve stretch, low likelihood of seizures, infection rates, and minimal risk of significant complications such as stroke or brain damage. - Informed patient about postoperative care: expected hospital stay of 1-2 days, MRI post-surgery, and gradual increase in activity over 4-6 weeks. - Patient advised to have someone drive for the first week postoperatively. - Consent form sent via [employer], including consent for blood transfusion if necessary. - Patient understands and agrees with the treatment plan. I spent a total of 30 minutes on the date of the service which included preparing to see the patient, [id number] patient care, completing clinical documentation, performing a medically appropriate examination, and counseling and educating the patient/family/caregiver. Erik Pineda MD Subjective: Patient is accompanied by her son Christiano . Kourtney is a 49-year-old female with a history of a tumor, presenting to discuss management and next steps. Kourtney has been monitoring a tumor since 2015, with imaging showing slow growth over time. She has a surgery scheduled for Thursday and prefers to proceed with it. She does not report any new symptoms or changes in her condition. 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 She has two adult children, Christiano (25) and HALLIE (27), who will be supporting her through the surgery and recovery process. Medications Current Outpatient Medications Medication Sig ondansetron orally disintegrating (ZOFRAN ODT) 4 mg disintegrating tablet Take 4 mg by mouth every 8 hours as needed. medroxyPROGESTERone (DEPO-PROVERA) 150 mg/mL injection Inject 150 mg intramuscularly every 12 weeks. mupirocin (BACTROBAN) 2 % ointment two times a day for 5 days. Apply 0.5 inch with cotton swab (Q-tip) to each nostril in the morning and evening for 5 days prior to and including day of surgery. methocarbamol (ROBAXIN) 500 mg tablet TAKE 1 [...] Take 20 mg by mouth once daily. No current facility-administered (more content not included)...[facility]06-04-2025 Telephone encounter Note* Telephone Encounter - Barbara Rosenthal LPN - 02/15/2025 8:21 AM EDT I called and spoke with patient. Relayed below message; denies questions at this time. Will go to [facility]. Barbara Rosenthal LPN February 15, 2025 8:22 AM [facility]06-04-2025 Miscellaneous Notes* Telephone Encounter - Barbara Rosenthal LPN - 02/15/2025 8:21 AM EDT I called and spoke with patient. Relayed below message; denies questions at this time. Will go to [facility]. Barbara Rosenthal LPN February 15, 2025 8:22 AM * Telephone Encounter - Mehul Martin APRN.CNP - 02/15/2025 8:09 AM EDT Please call patient. Lab did not draw [place], A1C, or BMP. Please have her go to closest [facility] lab tohave them drawn. She can go to [facility] [place] in [place] if that is best for her thank you. Thank you, Mehul Martin APRN.JOSSIE documented in this encounterHenry [facility] Hospital06-04-2025 Telephone encounter Note * Telephone Encounter - Mehul Martin APRN.CNP - 02/15/2025 8:09 AM EDT Please call patient. Lab did not draw Conabo, A1C, or BMP. Please have her go to [facility] lab tohave them drawn. She can go to [facility] [place] in [place] if that is best for her thank you. Thank you, Mehul Martin APRN.CNP [facility]06-03-2025 History of Present illness Narrative* Jace Lainez RT(R) - 02/14/2025 9:20 AM EDT Radiology Service Progress Note PATIENT NAME: Kourtney Novak DATE OF SERVICE: February 14, 2025 TIME: 9:16 AM PATIENT IDENTITY VERIFICATION COMPLETED USING TWO (2) IDENTIFIERS: Name and Date of confirmedby patient verbally and Name and Date of confirmed by identification band FALL SCREENING: Has the patient had 2 falls in the last year or 1 fall with injury or currently using an Ambulatory Assistive Device (Walker, Cane, Wheelchair, Crutches, etc.)? No PATIENT GENDER DATA: Assigned female at . status: : No status:NO. PATIENT RELEVANT IMPLANT DATA REVIEWED: Yes PATIENT PRESENTS WITH AN IMPLANTABLE OR ATTACHED ENTRY LEVEL PARALEGAL: No RADIOLOGY DEPARTMENT: MR; Exam(s) Completed: Head: Routine Brain Localization PERIPHERAL IV DATA: Site assessment: Clean,Dry and Intact, Site disposition Discontinued SIGNED BY: RT Alma(Lc) February 14, 2025 9:16 AM documented in this encounterHenry [facility] Hospital06-03-2025 NoteHNO ID: [id number] Author: JACE LAINEZ RT(R) Service: ? Author Type: Technologist Type: Progress Notes Filed: 02/14/2025 09:17 Note Text: Radiology Service Progress Note PATIENT NAME: Kourtney Novak DATE OF SERVICE: February 14, 2025 TIME: 9:16 AM PATIENT IDENTITY VERIFICATION COMPLETED USING TWO (2) IDENTIFIERS: Name and Date of confirmed by patient verbally and Name and Date of confirmed by identification band FALL SCREENING: Has the patient had 2 falls in the last year or 1 fall with injury or currently using an Ambulatory Assistive Device (Walker, Cane, Wheelchair, Crutches, etc.)? No PATIENT GENDER DATA: Assigned female at . status: : No status: NO. PATIENT RELEVANT IMPLANT DATA REVIEWED: Yes PATIENT PRESENTS WITH AN IMPLANTABLE OR ATTACHED ENTRY LEVEL PARALEGAL: No RADIOLOGY DEPARTMENT: MR; Exam(s) Completed: Head: Routine Brain Localization PERIPHERAL IV DATA: Site assessment: Clean,Dry and Intact, Site disposition Discontinued SIGNED BY: RT Alma(R) February 14, 2025 9:16 [facility]06-03-2025 History and physical note* Mehul Martin APRN.PIE CUTTER - 02/14/2025 7:40 AM EDT HISTORY AND PHYSICAL EXAMINATION SERVICE DATE: 02/14/2025 SERVICE TIME: 7:58 AM PRIMARY CARE PHYSICIAN: Sammie Gonzalez MD REASON FOR VISIT: Kourtney Novak is a 49 year old female who is scheduled for Right - ORBITOCRANIAL TO ANT CRAN FOSSA W/ SUPRAORB RIDGE OSTEOTOMY & ELEV FRONT&TEMP LOBE Right - RESECTION LESION BASE OF ANTERIOR CRANIAL FOSSA INTRADURAL W/ DURAL REPAIR at the request of Dr. Erik Pineda for consultation. My final recommendation will be communicated back to the requesting physician by way of shared medical record or letter. Assessment Patient has the following medical conditions which may affect karishma-operative course: Fibromyalgia Assessment: Controlled with Cymbalta Monitored by [facility] rheumatology COPD (chronic obstructive pulmonary disease) (HCC) Assessment: Stable with nebulizer treatments Denies any SOB Denies any Home oxygen use Lungs clear on exam SpO2 in office today 96% Monitored by PCP MAREK (obstructive sleep apnea) Assessment: Does not use CPAP Mixed hyperlipidemia Assessment: Compliant with Statin GERD (gastroesophageal reflux disease) Assessment: Controlled with dexilant Hypothyroidism Assessment: Controlled with levothyroxine Diabetes mellitus (HCC) Assessment: Complaint with oral medications -A1C ordered today Instructions provided to patient on how long to hold diabetic medications prior to procedure Anxiety Assessment: Controlled with Lamictal Class 3 severe obesity due to excess calories with serious comorbidity and body mass index (BMI) of40.0 to 44.9 in adult Assessment: Body mass index is 40.98 kg/m . Inflammatory arthritis Assessment: Stable ON Plaquenil and prednisone as needed Follows with Dr. Villegas Rheumatology ANESTHESIA FINDINGS: Intubation History: No history of difficult intubation Significant Anesthesia Considerations: none Airway History: No history of difficult airway Ritchie Activity Status Index: METS: Walk indoors, such as around the house (1.75 METs) Do light work around the house, such as dusting or washing dishes (2.70 METs) Take care of self; that is eating, dressing, bathing, using the toilet (2.75 METs) Walk a block or two on level ground (2.75 METs) Do moderate work around the house, such as vacuuming, sweeping floors, or carrying in groceries (3.50 METs) Climb a flight of stairs or walk up a hill (5.50 METs) DASI Score: 18.95 Patient denies any chest pain or undue shortness of breath with the above physical activity. [id number] Score: Age: <65 Sex: female CHF history: No Hypertension history: No Stroke/TIA/thromboembolism history: No Vascular disease history: No Diabetes history: Yes [id number] Score: 2 ARISCAT Score: Age: <=50 Preoperative SpO2: >=96% Respiratory infection in the last month: No Preoperative anemia: No Surgical incision: peripheral Duration of surgery: >3 hrs Emergency procedure: No ARISCAT Score: 23 I - PHYSICAL EVALUATION AIRWAY Patient intubated: No. Tracheostomy tube not present Mallampati: III. TM distance: >3 FB. Neck ROM: full ROM without neurological symptoms. Mouth opening: adequate. Short neck: no. Thick neck: no Wilson present: no Lip Bite Test: II Microretrognathia/Micronagthia/Recessed Chin: No DENTAL Dental findings: teeth intact. Dentures, upper: partial. II - ANESTHESIA PLAN Beta Meka Monitoring Plan Post Procedure Analgesic Plan Prepared for surgery: This patient is optimally prepared for surgery pending LABS CONSULTS: Patient does not require consults for optimization at this time. The Following Tests/Procedures Have Been Initiated: Orders Placed This Encounter Hemoglobin A1C Standing Status: Future Expected Date: 02/14/2025 Expiration Date: 05/16/2025 Confirm Blood Type Standing Status: Future Expected Date: 02/14/2025 Expiration Date: 05/16/2025 Did Blood Bank direct you to place this order:: No - Presurgical Workflow ondansetron orally disintegrating (ZOFRAN ODT) 4 mg disintegrating tablet Sig: Take 4 mg by mouth every 8 hours as needed. medroxyPROGESTERone (DEPO-PROVERA) 150 mg/mL injection Sig: Inject 150 mg intramuscularly every 12 weeks. mupirocin (BACTROBAN) 2 % ointment Sig: two times a day for 5 days. Apply 0.5 inch with cotton swab (Q-tip) to each nostril in the morning and evening for 5 days prior to and including day of surgery. Dispense: 22 g Refill: 0 Planned Anesthetic: Per anesthesia choice Subjective CHIEF COMPLAINT: Intracranial Meningioma HPI: 49 year old year old Female presents to [facility] for evaluation. Patient has meningioma that was found initially in 2015. She had repeat MRI in 2022 and it had grown in size. She is asymptomatic as her headaches are not thought to be related. Has elected for surgical intervention to prevent it from increasing in size. PAST MEDICAL HISTORY Diagnosis Date Anxiety COPD (chronic obstructive pulmonary disease) (HCC) Depression Diabetes mellitus (HCC) Fibromyalgia Mixed hyperlipidemia PAST SURGICAL HISTORY Procedure Laterality Date APPENDECTOMY 2020 HAND SURGERY HX Right 2020 REVISE MEDIAN N/CARPAL TUNNEL SURG Bilateral FAMILY HISTORY Problem Relation Age of Onset Seizures Brother SOCIAL HISTORY: Social History Tobacco Use Smoking status: Former Smokeless tobacco: Never Tobacco comments: Started 1994. Quit 2009. 1 ppd Vaping Use Vaping status: Never Used Substance Use Topics Alcohol use: Yes Comment: 3-4 drinks on occasion Drug use: Never Prior to Admission medications as of 02/14/25 0800 Medication Sig Last Dose Taking ondansetron orally disintegrating (ZOFRAN ODT) 4 mg disintegrating tablet Take 4 mg by mouth every 8 hours as needed. Yes medroxyPROGESTERone (DEPO-PROVERA) 150 mg/mL injection Inject 150 mg intramuscularly every 12 weeks. Yes methocarbamol (ROBAXIN) 500 mg tablet TAKE 1 TABLET BY MOUTH TWICE A DAY NEEDED Yes DULoxetine (CYMBALTA) 60 mg capsule Take 1 capsule by mouth once daily. Yes DULoxetine (CYMBALTA) 30 mg capsule Take one tab along with the 60mg tab to equal 90mg po qd Yes etodolac (LODINE) 400 mg tablet One tab po bid prn Yes predniSONE (DELTASONE) 5 mg tablet TAKE 1 TO 2 TABLETS BY MOUTH EVERY DAY Yes levothyroxine (SYNTHROID) 50 mcg tablet Take 50 mcg by mouth daily before breakfast. Yes hydrOXYchloroQUINE (PLAQUENIL) 200 mg tablet Take 1 tablet by mouth two times a day. Yes benzonatate (TESSALON PERLES ORAL) Yes budesonide (PULMICORT) 1 mg/2 mL nebulizer solution INHALE 1 (ONE) vial via NEBULIZER ONCE DAILY Yes dapagliflozin (FARXIGA) 5 mg tablet Yes DEXILANT 60 mg CpDM Take 1 capsule by mouth twice daily. Yes doxepin capsule 10 mg Yes glycopyrrolate (ROBINUL) 1 mg tablet Take 2 mg by mouth twice daily. Yes ipratropium-albuterol (DUONEB) 0.5 mg-3 mg(2.5 mg base)/3 mL nebu Yes lamoTRIgine (LAMICTAL) 200 mg tablet TAKE 3 TABLETS EVERY DAY Yes AMITIZA 24 mcg capsule Take 24 mcg by mouth twice daily. Yes metFORMIN (GLUCOPHAGE) 500 mg tablet Yes pioglitazone (ACTOS) 15 mg tablet Yes simvastatin (ZOCOR) 20 mg tablet Take 20 mg by mouth once daily. Yes mupirocin (BACTROBAN) 2 % ointment two times a day for 5 days. Apply 0.5 inch with cotton swab (Q-tip) to each nostril in the morning and evening for 5 days prior to and including day of surgery. No medication comments found. ALLERGIES No Known Allergies Covid Immunization Dates Current Care Gaps Covid-19 Vaccine ( season) Overdue since 05/15/2024 01/24/2021 Imm Admin: COVID-19 original vaccine, age 12+ yr, monovalent ([employer] [facility] - [facility]) 01/02/2021 Imm Admin: COVID-19 original vaccine, age 12+ yr, monovalent ([employer] - [facility]) REVIEW OF SYSTEMS: PAIN ASSESSMENT: General: No weight loss, malaise or fevers. 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 : Denies, No LMP recorded. Patient has had an injection. Endocrine: Diabetes Mellitus on oral agent, Hypothyroidism Hematology: No history of bleeding or clotting disorder. Pt is not taking anti- coagulation or platelet medications. No history of hematological symptoms or problems. Oncology: No history of CA metastasis, chemo within 30 days, or radiotherapy within 90 days. Has not lost 10% of body wt in 6 months. No history of oncological symptoms or problems. Psych: Anxiety, Depression Musculoskeletal: +Chronic inflammation Skin: Negative for lesions, rash and itching. Objective PHYSICAL EXAM: VITALS: BP 114/74 Pulse 80 Temp (Src) 98.7 (Oral) Resp 16 Ht 5' 4.5 (1.64m) Wt 242 lb 8.1 oz (110.0kg) SpO2 96% BMI 41.00 kg/(m^2). General: Alert and oriented Skin: Normal color, no rash, no lesions. HEENT: EOM, pupils equal, round and reactive. Cardiovascular: Normal S1 & S2, no rubs, murmurs or gallops. No JVD. Pulse regular. Lungs: Normal breath sounds, no wheezes or crackles. Abdomen: Soft, non-tender, no rigidity. Extremities: No deformity, no edema or tenderness, no joint swelling or clubbing. Neurological: Normal cognition and motor skills. Pulses: Carotid and radial pulses normal +2. Diagnostic tests reviewed for today's visit: Lab Value Units Date High Low HB No results within date range. HCT No results within date range. WBC No results within date range. PLT No results within date range. NA No results within date range. K No results within date range. GLUC No results within date range. BUN No results within date range. CREAT No results within date range. PTSEC No results within date range. INR No results within date range. APTT No results within date range. ALT No results within date range. AST No results within date range. TBILI No results within date range. TSH No results within date range. Recent Results (from the past 8760 hours) ECG COMPLETE Collection Time: 02/14/25 7:00 AM Result Value Ventricular Rate 77 Atrial Rate 77 P-R Interval 138 QRS Duration 82 QT Interval 386 QTC Calculation (Bazett) 436 Calculated P Gotebo 36 Calculated R Gotebo 47 Calculated T Gotebo 47 Impression NORMAL SINUS RHYTHM NORMAL ECG Instructions Given to Patient: Instructions located in the after visit summary. Patient given verbal and written preop instructions and voices comprehension and compliance. SIGNATURE: Mehul Martin APRN.PIE CUTTER PATIENT NAME: Kourtney Novak DATE: 02/14/2025 TIME: 7:58 AM [facility]06-03-2025 History and physical note* Mehul Martin APRN.CNP - 02/14/2025 7:40 AM EDT HISTORY AND PHYSICAL EXAMINATION SERVICE DATE: 02/14/2025 SERVICE TIME: 7:58 AM PRIMARY CARE PHYSICIAN: Sammie Gonzalez MD REASON FOR VISIT: Kourtney Novak is a 49 year old female who is scheduled for Right - ORBITOCRANIAL TO ANT CRAN FOSSA W/ SUPRAORB RIDGE OSTEOTOMY & ELEV FRONT&TEMP LOBE Right - RESECTION LESION BASE OF ANTERIOR CRANIAL FOSSA INTRADURAL W/ DURAL REPAIR at the request of Dr. Erik Pineda for consultation. My final recommendation will be communicated back to the requesting physician by way of shared medical record or letter. Assessment Patient has the following medical conditions which may affect karishma-operative course: Fibromyalgia Assessment: Controlled with Cymbalta Monitored by [facility] rheumatology COPD (chronic obstructive pulmonary disease) (HCC) Assessment: Stable with nebulizer treatments Denies any SOB Denies any Home oxygen use Lungs clear on exam SpO2 in office today 96% Monitored by PCP MAREK (obstructive sleep apnea) Assessment: Does not use CPAP Mixed hyperlipidemia Assessment: Compliant with Statin GERD (gastroesophageal reflux disease) Assessment: Controlled with dexilant Hypothyroidism Assessment: Controlled with levothyroxine Diabetes mellitus (HCC) Assessment: Complaint with oral medications -A1C ordered today Instructions provided to patient on how long to hold diabetic medications prior to procedure Anxiety Assessment: Controlled with Lamictal Class 3 severe obesity due to excess calories with serious comorbidity and body mass index (BMI) of40.0 to 44.9 in adult Assessment: Body mass index is 40.98 kg/m . Inflammatory arthritis Assessment: Stable ON Plaquenil and prednisone as needed Follows with Dr. Villegas Rheumatology ANESTHESIA FINDINGS: Intubation History: No history of difficult intubation Significant Anesthesia Considerations: none Airway History: No history of difficult airway Ritchie Activity Status Index: METS: Walk indoors, such as around the house (1.75 METs) Do light work around the house, such as dusting or washing dishes (2.70 METs) Take care of self; that is eating, dressing, bathing, using the toilet (2.75 METs) Walk a block or two on level ground (2.75 METs) Do moderate work around the house, such as vacuuming, sweeping floors, or carrying in groceries (3.50 METs) Climb a flight of stairs or walk up a hill (5.50 METs) DASI Score: 18.95 Patient denies any chest pain or undue shortness of breath with the above physical activity. [id number] Score: Age: <65 Sex: female CHF history: No Hypertension history: No Stroke/TIA/thromboembolism history: No Vascular disease history: No Diabetes history: Yes [id number] Score: 2 ARISCAT Score: Age: <=50 Preoperative SpO2: >=96% Respiratory infection in the last month: No Preoperative anemia: No Surgical incision: peripheral Duration of surgery: >3 hrs Emergency procedure: No ARISCAT Score: 23 I - PHYSICAL EVALUATION AIRWAY Patient intubated: No. Tracheostomy tube not present Mallampati: III. TM distance: >3 FB. Neck ROM: full ROM without neurological symptoms. Mouth opening: adequate. Short neck: no. Thick neck: no Wilson present: no Lip Bite Test: II Microretrognathia/Micronagthia/Recessed Chin: No DENTAL Dental findings: teeth intact. Dentures, upper: partial. II - ANESTHESIA PLAN Beta Meka Monitoring Plan Post Procedure Analgesic Plan Prepared for surgery: This patient is optimally prepared for surgery pending LABS CONSULTS: Patient does not require consults for optimization at this time. The Following Tests/Procedures Have Been Initiated: Orders Placed This Encounter Hemoglobin A1C Standing Status: Future Expected Date: 02/14/2025 Expiration Date: 05/16/2025 Confirm Blood Type Standing Status: Future Expected Date: 02/14/2025 Expiration Date: 05/16/2025 Did Blood Bank direct you to place this order:: No - Presurgical Workflow ondansetron orally disintegrating (ZOFRAN ODT) 4 mg disintegrating tablet Sig: Take 4 mg by mouth every 8 hours as needed. medroxyPROGESTERone (DEPO-PROVERA) 150 mg/mL injection Sig: Inject 150 mg intramuscularly every 12 weeks. mupirocin (BACTROBAN) 2 % ointment Sig: two times a day for 5 days. Apply 0.5 inch with cotton swab (Q-tip) to each nostril in the morning and evening for 5 days prior to and including day of surgery. Dispense: 22 g Refill: 0 Planned Anesthetic: Per anesthesia choice Subjective CHIEF COMPLAINT: Intracranial Meningioma HPI: 49 year old year old Female presents to [facility] for evaluation. Patient has meningioma that was found initially in 2015. She had repeat MRI in 2022 and it had grown in size. She is asymptomatic as her headaches are not thought to be related. Has elected for surgical intervention to prevent it from increasing in size. PAST MEDICAL HISTORY Diagnosis Date Anxiety COPD (chronic obstructive pulmonary disease) (HCC) Depression Diabetes mellitus (HCC) Fibromyalgia Mixed hyperlipidemia PAST SURGICAL HISTORY Procedure Laterality Date APPENDECTOMY 2020 HAND SURGERY HX Right 2020 REVISE MEDIAN N/CARPAL TUNNEL SURG Bilateral FAMILY HISTORY Problem Relation Age of Onset Seizures Brother SOCIAL HISTORY: Social History Tobacco Use Smoking status: Former Smokeless tobacco: Never Tobacco comments: Started 1994. Quit 2009. 1 ppd Vaping Use Vaping status: Never Used Substance Use Topics Alcohol use: Yes Comment: 3-4 drinks on occasion Drug use: Never Prior to Admission medications as of 02/14/25 0800 Medication Sig Last Dose Taking ondansetron orally disintegrating (ZOFRAN ODT) 4 mg disintegrating tablet Take 4 mg by mouth every 8 hours as needed. Yes medroxyPROGESTERone (DEPO-PROVERA) 150 mg/mL injection Inject 150 mg intramuscularly every 12 weeks. Yes methocarbamol (ROBAXIN) 500 mg tablet TAKE 1 TABLET BY MOUTH TWICE A DAY NEEDED Yes DULoxetine (CYMBALTA) 60 mg capsule Take 1 capsule by mouth once daily. Yes DULoxetine (CYMBALTA) 30 mg capsule Take one tab along with the 60mg tab to equal 90mg po qd Yes etodolac (LODINE) 400 mg tablet One tab po bid prn Yes predniSONE (DELTASONE) 5 mg tablet TAKE 1 TO 2 TABLETS BY MOUTH EVERY DAY Yes levothyroxine (SYNTHROID) 50 mcg tablet Take 50 mcg by mouth daily before breakfast. Yes hydrOXYchloroQUINE (PLAQUENIL) 200 mg tablet Take 1 tablet by mouth two times a day. Yes benzonatate (TESSALON PERLES ORAL) Yes budesonide (PULMICORT) 1 mg/2 mL nebulizer solution INHALE 1 (ONE) vial via NEBULIZER ONCE DAILY Yes dapagliflozin (FARXIGA) 5 mg tablet Yes DEXILANT 60 mg CpDM Take 1 capsule by mouth twice daily. Yes doxepin capsule 10 mg Yes glycopyrrolate (ROBINUL) 1 mg tablet Take 2 mg by mouth twice daily. Yes ipratropium-albuterol (DUONEB) 0.5 mg-3 mg(2.5 mg base)/3 mL nebu Yes lamoTRIgine (LAMICTAL) 200 mg tablet TAKE 3 TABLETS EVERY DAY Yes AMITIZA 24 mcg capsule Take 24 mcg by mouth twice daily. Yes metFORMIN (GLUCOPHAGE) 500 mg tablet Yes pioglitazone (ACTOS) 15 mg tablet Yes simvastatin (ZOCOR) 20 mg tablet Take 20 mg by mouth once daily. Yes mupirocin (BACTROBAN) 2 % ointment two times a day for 5 days. Apply 0.5 inch with cotton swab (Q-tip) to each nostril in the morning and evening for 5 days prior to and including day of surgery. No medication comments found. ALLERGIES No Known Allergies Covid Immunization Dates Current Care Gaps Covid-19 Vaccine ( season) Overdue since 05/15/2024 01/24/2021 Imm Admin: COVID-19 original vaccine, age 12+ yr, monovalent ([employer] - [facility]) 01/02/2021 Imm Admin: COVID-19 original vaccine, age 12+ yr, monovalent ([employer] - [facility]) REVIEW OF SYSTEMS: PAIN ASSESSMENT: General: No weight loss, malaise or fevers. 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 : Denies, No LMP recorded. Patient has had an injection. Endocrine: Diabetes Mellitus on oral agent, Hypothyroidism Hematology: No history of bleeding or clotting disorder. Pt is not taking anti- coagulation or platelet medications. No history of hematological symptoms or problems. Oncology: No history of CA metastasis, chemo within 30 days, or radiotherapy within 90 days. Has not lost 10% of body wt in 6 months. No history of oncological symptoms or problems. Psych: Anxiety, Depression Musculoskeletal: +Chronic inflammation Skin: Negative for lesions, rash and itching. Objective PHYSICAL EXAM: VITALS: BP 114/74 Pulse 80 Temp (Src) 98.7 (Oral) Resp 16 Ht 5' 4.5 (1.64m) Wt 242 lb 8.1 oz (110.0kg) SpO2 96% BMI 41.00 kg/(m^2). General: Alert and oriented Skin: Normal color, no rash, no lesions. HEENT: EOM, pupils equal, round and reactive. Cardiovascular: Normal S1 & S2, no rubs, murmurs or gallops. No JVD. Pulse regular. Lungs: Normal breath sounds, no wheezes or crackles. Abdomen: Soft, non-tender, no rigidity. Extremities: No deformity, no edema or tenderness, no joint swelling or clubbing. Neurological: Normal cognition and motor skills. Pulses: Carotid and radial pulses normal +2. Diagnostic tests reviewed for today's visit: Lab Value Units Date High Low HB No results within date range. HCT No results within date range. WBC No results within date range. PLT No results within date range. NA No results within date range. K No results within date range. GLUC No results within date range. BUN No results within date range. CREAT No results within date range. PTSEC No results within date range. INR No results within date range. APTT No results within date range. ALT No results within date range. AST No results within date range. TBILI No results within date range. TSH No results within date range. Recent Results (from the past 8760 hours) ECG COMPLETE Collection Time: 02/14/25 7:00 AM Result Value Ventricular Rate 77 Atrial Rate 77 P-R Interval 138 QRS Duration 82 QT Interval 386 QTC Calculation (Bazett) 436 Calculated P Gotebo 36 Calculated R Gotebo 47 Calculated T Gotebo 47 Impression NORMAL SINUS RHYTHM NORMAL ECG Instructions Given to Patient: Instructions located in the after visit summary. Patient given verbal and written preop instructions and voices comprehension and compliance. SIGNATURE: Mehul Martin APRN.CNP PATIENT NAME: Kourtney Novak DATE: 02/14/2025 TIME: 7:58 AM [facility] Instructions* Patient Instructions* Mehul Martin APRN.CNP - 02/13/2025 11:26 AM EDT PATIENT PREOPERATIVE INSTRUCTIONS You Surgeon has scheduled you for your procedure at this surgery center: [facility] Scheduling Office: [phone] --[address] [place] [address]. Please read below carefully for your personalized instructions. Dietary Restrictions: - No solid food after midnight. - You may have 12 ounces of clear liquids (water, clear juices such as apple juice or gatorade, carbonated beverages, clear tea, black coffee, jello) until 2 hours before scheduled arrival at facility. Medications: Unless instructed differently below, stay on all of your medications until your surgery. Approved medications to take the morning of surgery with a sip of water: Duloxetine, plaquenil, dexilant, Lamictal - Use mupirocin nasal ointment twice daily starting 5 days prior to surgery. Preoperative Instructions for Patient's with Diabetes Mellitus/ Prediabetes Oral/ Injectable Medication Instructions - Metformin - HOLD DAY OF SURGERY Actos/Pioglitazone - HOLD DAY OF SURGERY Dapagliflozin/Farxiga - HOLD 3 DAYS PRIOR TO SURGERY If you are currently using a [id number] injectable or oral medication for diabetes or weight loss such as Dulaglutide (Trulicity), Exenatide (Byetta, Bydureon), Liraglutide (Victoza, Saxenda), Semaglutide (Ozempic, Wegovy, Rybelsus), or Tirzepatide (Mounjaro), the medicine should be stopped at least 7 days before surgery. These medicines can cause food to remain in your stomach for a very longtime and increase the risks from surgery and anesthesia. Not stopping the medication for a long enough time may result in your surgery being rescheduled. If you start any new medications after today's visit, please contact the surgeon's office. Blood Thinning Medications: - Stop NSAIDS (Ibuprofen, Advil, Aleve, Motrin, Celebrex, LODINE, Mobic, etc.) 7 days before surgery, as directed by your surgeon. - Stop Aspirin 7 days before surgery, as directed by your surgeon. - Stop Vitamin E, ALL multi-vitamins, herbals and dietary supplements 7 days before surgery. - You may take Tylenol (Acetaminophen) or any of your pain medications that do not contain aspirin or NSAIDS as needed. Important Reminders: - If you are prescribed inhalers for breathing, continue using them. - Candy, mints, and tobacco products are NOT permitted the morning of surgery. - Hearing aids, dentures and glasses may be worn the morning of surgery. - NO jewelry, body piercings, makeup, hairpins or contacts are to be worn the day of surgery. If you develop symptoms such as a fever, cold, or flu, or have other changes to your health within TWO DAYS of scheduled surgery or the morning of surgery, please contact the surgery center above. Personal Belongings: -Please have photo ID and insurance cards. -If you do not have a copy of advance directives on file with us, please bring a copy with you on the day of surgery. - Leave ALL valuables and money at home or with family members. For Outpatient Procedures: - YOU MUST HAVE A RESPONSIBLE RADIOLOGIC THERAPIST TAKE YOU HOME. A WINE CONSULTANT OR ROAD GANG SUPERVISOR CANNOT BE MADE A RESPONSIBLE RADIOLOGIC THERAPIST. - We recommend that a responsible person stays with you overnight to take care of you. - You cannot stay in a hotel alone after outpatient surgery. You will not be permitted to have yoursurgery, if you do not have someone to take care of you. Arrival Time for Surgery: - To obtain your arrival time for surgery, call your physician's office the day before your surgery. - If you have received different instructions about finding out your arrival time from your surgeon, please follow those instructions. - If your surgery is scheduled for Thursday, call the Thursday before. Your surgeon s outside production inspector will tell you what time to call the office. - If you have not reached the departmental outside production inspector by 5 P.M., call [phone] after 5 P.M. the day before your surgery. Please be aware that emergency situations arise, which may delay or change your surgical time. If this happens, we will notify you as soon as possible and regret any inconvenience. If you already have an Advance Directive, please fax a copy to [phone] or email to for it to be added to your chart. If you do not have an Advance Directive, you can find the appropriate form and more information at [email or web address]. We recommend that youcomplete the Advance Directive form found on the website and bring it with you the day of your surgery. It can be witnessed and scanned into your chart that day. Mehul Martin APRN.JOSSIE documented in this [facility]05-[facility] Radiology Diagnostic [facility] [place] [address] Ultrasound Report Signed Patient: Kourtney Novak MR#: [id number] : 1975 Acct:[id number] Age/Sex: 49 / F ADM Date: 5 Loc: Room: Type: [facility] Attending Dr: Sammie Gonzalez MD Ordering Provider: Sammie Gonzalez MD Date of Service: 02/10/25 US/US renal BI: N28.9 Copies to: Sammie Gonzalez MD~ Bilateral Renal Ultrasound HISTORY: Abnormal renal labs. COMPARISON: None RIGHT kidney measures 10.4 cm. LEFT kidney measures 10.4 cm. Hydronephrosis: None RENAL STONE: No shadowing renal calculus is seen. RENAL LESIONS: No renal lesion identified. URINARY BLADDER: Bilateral ureteral jets identified. REPRODUCTIVE STRUCTURES Not assessed US/US renal BI IMPRESSION : No hydronephrosis. Impression dictated by: George Gray M.D. 02/10/2025 4:44 PM Dictation Location: [place] [address] Tech: Vani Olivia Transcribed By: [facility] 02/10/25 164 Dictated By: George Gray DO 02/10/25 1643 Signed By: 02/10/25 1644 [facility]05-15-2025 Telephone encounter Note* Telephone Encounter - Gifty Martinez - 01/26/2025 8:09 AM EDT Physician: Eliceo Call from pharmacy requesting refill. Please E-Scribe Last OV: 01/06/2025 with Eliceo Future OV: Not Scheduled. Requested Prescriptions Pending Prescriptions Disp Refills nortriptyline (PAMELOR) 10 mg capsule [Pharmacy Med Name: NORTRIPTYLINE HCL 10 MG CAP] 90 capsule 1 Sig: TAKE 1 CAPSULE AT BEDTIME FOR 2 WEEKS, THEN 1 CAPSULE EVERY OTHER DAY FOR 1 WEEK THEN STOP Pharmacy Name: [facility]05[facility] Miscellaneous Notes* Telephone Encounter - Gifty Martinez - 01/26/2025 8:09 AM EDT Physician: Eliceo Call from pharmacy requesting refill. Please E-Scribe Last OV: 01/06/2025 with Eliceo Future OV: Not Scheduled. Requested Prescriptions Pending Prescriptions Disp Refills nortriptyline (PAMELOR) 10 mg capsule [Pharmacy Med Name: NORTRIPTYLINE HCL 10 MG CAP] 90 capsule 1 Sig: TAKE 1 CAPSULE AT BEDTIME FOR 2 WEEKS, THEN 1 CAPSULE EVERY OTHER DAY FOR 1 WEEK THEN STOP Pharmacy Name: [facility] documented in this encounterHenry [facility]04-25-2025 NoteHNO ID: [id number] Author: RACHELE FENTON APRN.PIE CUTTER Service: ? Author Type: Nurse Practitioner Type: Progress Notes Filed: 01/06/2025 08:57 Note Text: [facility] - Follow up Virtual Visit Patient's headache clinic evaluation was scheduled as a virtual visit using the following platform [employer] Kourtney Novak was identified by name and [...] visit. Either the patient or their legal labor relations representative has been informed of the risks [...] tablet pioglitazone (ACTOS) 15 mg tablet simvastatin (more content not included)...[facility]04-24-2025 NoteHNO ID: [id number] Author: LA NENA WATERMAN LPN Service: ? Author Type: LICENSED NURSE Type: Progress Notes Filed: 01/05/2025 12:51 Note Text: Eye exam for Plaquenil toxicity received from [facility]. Exam date was 12/20/2024. Exam shows no signs of Plaquenil toxicity. Forms sent for scanning.[facility]04-17-2025 Telephone encounter Note* Telephone Encounter - Gifty Martinez - 12/29/2024 8:19 AM EDT Physician: Eliceo Call from pharmacy requesting refill. Please E-Scribe Last OV: 02/05/2024 with Hamdan Future OV: 01/06/2025 with Juan Luisdamarie Requested Prescriptions Pending Prescriptions Disp Refills methocarbamol (ROBAXIN) 500 mg tablet [Pharmacy Med Name: METHOCARBAMOL 500 MG TABLET] 45 tablet 2 Sig: TAKE 1 TABLET BY MOUTH TWICE A DAY NEEDED Pharmacy Name: [facility]04-17-2025 Miscellaneous Notes* Telephone Encounter - Gifty Martinez - 12/29/2024 8:19 AM EDT Physician: Eliceo Call from pharmacy requesting refill. Please E-Scribe Last OV: 02/05/2024 with Hamdamarie Future OV: 01/06/2025 with Juan Luisdamarie Requested Prescriptions Pending Prescriptions Disp Refills methocarbamol (ROBAXIN) 500 mg tablet [Pharmacy Med Name: METHOCARBAMOL 500 MG TABLET] 45 tablet 2 Sig: TAKE 1 TABLET BY MOUTH TWICE A DAY NEEDED [facility]: [facility] documented [facility]04-[facility]25 NoteHNO ID: [id number] Author: ZEINAB WOOD MD Service: ? Author [...] varicosities of his lower extremities. GI: Bowel sound (more content not included)...[facility] 12-28-2024 History of Present illness Narrative* Zeinab Wood MD - 12/28/2024 9:49 AM EDT Kourtney Novak is a 47 year old [...] but now has ''pulling of tendons '' sensationcurrently Em stiffness- for about half hour No [...] by mouth once daily. (Patient taking differently: Take10 mg by mouth once daily.) benzonatate (TESSALON [...] kg (242 lb 15.2 oz) BMI 41.06 kg/m PE; Well built and nourished. Pleasant [...] No Swollen Glands: No documented in this encounterHenry [facility] Hospital04-15-2025 Evaluation note* Diagnosis Onset Date Resolution Status Admit Date Osteochondrosis of lunate of right wrist acute December 27, 2024 12:51pm Right wrist pain acute December 272024 12:51pm Osteochondrosis of lunate of right wrist acute February 01, 2025 1 :57pm Right wrist pain acute January 1:57pm [facility] Work Phone: 1(786) 607-320704-15-2025 Evaluation note* Diagnosis Onset Date Resolution Status Admit Date Osteochondrosis of lunate of right wrist acute December 27, 2024 12:51pm Right wrist pain acute December 272024 12:51pm Osteochondrosis of lunate of right wrist acute February 01, 2025 1 :57pm Right wrist pain acute January 1:57pm Osteochondrosis of lunate of right wrist acute March 22, 2025 3 :55pm Right wrist pain acute March 3:55pm [facility] Work Phone: 1(472) 497-983803-24-2025 Telephone encounter Note* Telephone Encounter - Mario Alberto Phillips RN - 12/05/2024 10:27 AM EDT Patient returned the call. She mentioned that [...] Pineda will be updated about the above & that a brain MRI will be needed closer to the surgery date. Patient was made aware to reach out for questions/concerns/updates. Mario Alberto Phillips RN, Edging Machine Feeder [facility]03-24-2025 Miscellaneous Notes* Telephone Encounter - Mario Alberto Phillips RN - 12/05/2024 10:27 AM EDT Patient returned the call. She mentioned that [...] Pineda will be updated about the above & that a brain MRI will be needed closer to the surgery date. Patient was made aware to reach out for questions/concerns/updates. Mario Alberto Phillips RN, Edging Machine Feeder * Telephone Encounter - Mario Alberto Phillips RN - 12/05/2024 10:04 AM EDT Left a detailed voice message for the patient requesting a call back to discuss her plan of care & scheduling surgery. Contact info provided. documented in this encounterHenry [facility] Hospital03-24-2025 Telephone encounter Note * Telephone Encounter - Mario Alberto Phillips RN - 12/05/2024 10:04 AM EDT Left a detailed voice message for the patient requesting a call back to discuss her plan of care & scheduling surgery. Contact info provided. [facility]02-20-2025 Evaluation note* Diagnosis Onset Date Resolution Status Admit Date Bursitis of left shoulder acute November 03, 2024 9:12am Osteochondrosis of lunate of right wrist acute December 27, 2024 12:51pm Right wrist pain acute December 272024 12:51pm [facility] Work Phone: 1(595) 822-503901-27-2025 Telephone encounter Note* Telephone Encounter - Susy Escamilla LPN - 10/10/2024 4:59 PM EST Faxed new order with updated diagnosis code . sent to [phone]. [facility]01-27-2025 Miscellaneous Notes* Telephone Encounter - Susy Escamilla LPN - 10/10/2024 4:59 PM EST Faxed new order with updated diagnosis code . sent to [phone]. * Telephone Encounter - Susy Escamilla LPN - 10/10/2024 3:27 PM EST Received fax from [facility]. States that diagnosis code M19.9 ( inflammatory arthritis ) [place] pass medical [place] the [address] regarding CBC test. They needs a different order to be placed with another diagnosis code. Please fax to Jimbo Whitten at [phone]. Notice sent to scanning . Please route to [facility] nurse for follow up documented in this encounterHenry County Hospital01-27-2025 Telephone encounter Note * Telephone Encounter - Zeinab Wood MD - 10/10/2024 4:34 PM EST The following approved medication requests have been transmitted electronically. Requested Prescriptions Pending Prescriptions Disp Refills DULoxetine (CYMBALTA) 60 mg capsule 30 capsule 6 Sig: Take 1 capsule by mouth once daily. DULoxetine (CYMBALTA) 30 mg capsule 30 capsule 6 Sig: Take one tab along with the 60mg tab to equal 90mg po qd Zeinab Wood MD [facility]01-27-2025 Miscellaneous Notes* Telephone Encounter - Zeinab Wood MD - 10/10/2024 4:34 PM EST The following approved medication requests have been transmitted electronically. Requested Prescriptions Pending Prescriptions Disp Refills DULoxetine (CYMBALTA) 60 mg capsule 30 capsule 6 Sig: Take 1 capsule by mouth once daily. DULoxetine (CYMBALTA) 30 mg capsule 30 capsule 6 Sig: Take one tab along with the 60mg tab to equal 90mg po qd Zeinab Wood MD * Telephone Encounter - La Nena Waterman LPN - 10/10/2024 2:50 PM EST Most recent Rheumatology visit: 05/30/2024 (with Zeinab Wood) Last Bone Density on file: None on file Rheumatology Care Team: None on file Recent Office Visits - This Specialty 05/30/2024 Inflammatory arthritis Rheumatology Zeinab Wood MD 09/28/2023 Inflammatory arthritis Rheumatology Zeinab Wood MD 09/29/2022 Inflammatory arthritis Rheumatology Zeinab Wood MD Upcoming Rheumatology Appointments - Next 365 Days Visit Type Date Time Department [facility] EST [facility] 12/28/2024 9:20 AM [facility] Last Ophthalmology Check for Plaquenil (Hydroxychloroquine) [...] Expires Ordered Last Rel. ASPARTATE AMINOTRANSFERASE/SGOT [SQAST] 4/4 Every 3 months 09/06/25 09/09/24 Auth. provider: Zeinab Wood MD Assoc. diagnoses: Inflammatory arthritis ALANINE AMINOTRANSFERASE / SGPT [SQALT] 4/4 Every 3 months 09/06/25 09/09/24 Auth. provider: Zeinab Wood MD Assoc. diagnoses: Inflammatory arthritis COMPLETE BLOOD COUNT [SQCBC] 4/4 Every 3 months 09/06/25 09/09/24 Auth. provider: Zeinab Wood MD Assoc. diagnoses: Inflammatory arthritis SEDIMENTATION RATE, WESTERGREN [SQWSR] 4/4 Every 3 months 09/06/25 09/09/24 Auth. provider: Zeinab Wood MD Assoc. diagnoses: Inflammatory arthritis C-REACTIVE PROTEIN [SQCRP] 4/4 Every 3 months 09/06/25 09/09/24 Auth. provider: Zeinab Wood MD Assoc. diagnoses: Inflammatory arthritis Open Future (Single Instance) Lab Orders None documented in this encounterHenry County Hospital01-27-2025 Telephone encounter Note * Telephone Encounter - Susy Escamilla LPN - 10/10/2024 3:27 PM EST Received fax from [facility]. States that diagnosis code M19.9 ( inflammatory arthritis ) does not pass medical necessity for the [address]478 regarding CBC test. They needs a different order to be placed with another diagnosis code. Please fax to Jimbo Whitten at [phone]. Notice sent to scanning . Please route to [facility] nurse for follow up [facility]01-27-2025 Telephone encounter Note* Telephone Encounter - La Nena Waterman LPN - 10/10/2024 2:50 PM EST Most recent Rheumatology visit: 05/30/2024 (with Zeinab Wood) Last Bone Density on file: None on file Rheumatology Care Team: None on file Recent Office Visits - This Specialty 05/30/2024 Inflammatory arthritis Rheumatology Zeinab Wood MD 09/28/2023 Inflammatory arthritis Rheumatology Zeinab Wood MD 09/29/2022 Inflammatory arthritis Rheumatology Zeinab Wood MD Upcoming Rheumatology Appointments - Next 365 Days Visit Type Date Time Department [facility] 12/28/2024 9:20 AM [facility] Last Ophthalmology Check for Plaquenil (Hydroxychloroquine) [...] Expires Ordered Last Rel. ASPARTATE AMINOTRANSFERASE/SGOT [SQAST] 4/4 Every 3 months 09/06/25 09/09/24 Auth. provider: Zeinab Wood MD Assoc. diagnoses: Inflammatory arthritis ALANINE AMINOTRANSFERASE / SGPT [SQALT] 4/4 Every 3 months 09/06/25 09/09/24 Auth. provider: Zeinab Wood MD Assoc. diagnoses: Inflammatory arthritis COMPLETE BLOOD COUNT [SQCBC] 4/4 Every 3 months 09/06/25 09/09/24 Auth. provider: Zeinab Wood MD Assoc. diagnoses: Inflammatory arthritis SEDIMENTATION RATE, WESTERGREN [SQWSR] 4/4 Every 3 months 09/06/25 09/09/24 Auth. provider: Zeinab Wood MD Assoc. diagnoses: Inflammatory arthritis C-REACTIVE PROTEIN [SQCRP] 4/4 Every 3 months 09/06/25 09/09/24 Auth. provider: Zeinab Wood MD Assoc. diagnoses: Inflammatory arthritis Open Future (Single Instance) Lab Orders None [facility]01-14-2025 Evaluation note* Diagnosis Onset Date Resolution Status Admit Date Osteochondrosis of lunate of right wrist acute September 27 2:48pm Right wrist pain acute September 27, 2024 2:48pm Bursitis of left shoulder acute November 03, 2024 9:12am [facility] Work Phone: 1(618) 368-860701-07-2025 Telephone encounter Note* Telephone Encounter - Susy Escamilla LPN - 09/20/2024 5:15 PM EST Lab results received from [facility] . Copy sent to scan, copy sent to provider folder for review. . [facility]01-07-2025 Miscellaneous Notes* Telephone Encounter - Susy Escamilla LPN - 09/20/2024 5:15 PM EST Lab results received from [facility] . Copy sent to scan, copy sent to provider folder for review. . documented in this encounterHenry County Hospital01-02-2025 Telephone encounter Note * Telephone Encounter - Susy Escamilla LPN - 09/15/2024 3:42 PM EST Lab orders faxed to [phone]. Patient updated via [employer] [facility]01-02-2025 Miscellaneous Notes* Telephone Encounter - Susy Escamilla LPN - 09/15/2024 3:42 PM EST Lab orders faxed to [phone]. Patient updated via [employer] * Telephone Encounter - Zeinab Wood MD - 09/15/2024 2:04 PM EST Please send lab orders to where patient would like. [facility] call patient to discuss. Zeinab Wood MD documented in this encounterHenry County Hospital01-02-2025 Telephone encounter Note * Telephone Encounter - Zeinab Wood MD - 09/15/2024 2:04 PM EST Please send lab orders to where patient would like. [facility] call patient to discuss. Zeinab Wood MD [facility]12-27-2024 Telephone encounter Note* Telephone Encounter - Zeinab Wood MD - 09/09/2024 12:52 PM EST Yes , she needs labs. The following approved medication requests have been transmitted electronically. Requested Prescriptions Signed Prescriptions Disp Refills etodolac (LODINE) 400 mg tablet 60 tablet 3 Sig: One tab po bid prn Authorizing Provider: ZEINAB WOOD predniSONE (DELTASONE) 5 mg tablet 60 tablet 3 Sig: TAKE 1 TO 2 TABLETS BY MOUTH EVERY DAY Authorizing Provider: ZEINAB WOOD MD [facility]12-27-2024 Telephone encounter Note* Telephone Encounter - Zeinab Wood MD - 09/09/2024 12:52 PM EST The following approved medication requests have been transmitted electronically. Requested Prescriptions Signed Prescriptions Disp Refills etodolac (LODINE) 400 mg tablet 60 tablet 3 Sig: One tab po bid prn Authorizing Provider: ZEINAB WOOD predniSONE (DELTASONE) 5 mg tablet 60 tablet 3 Sig: TAKE 1 TO 2 TABLETS BY MOUTH EVERY DAY Authorizing Provider: ZEINAB WOOD MD [facility]12-27-2024 Miscellaneous Notes* Telephone Encounter - Zeinab Wood MD - 09/09/2024 12:52 PM EST Yes , she needs labs. The following approved medication requests have been transmitted electronically. Requested Prescriptions Signed Prescriptions Disp Refills etodolac (LODINE) 400 mg tablet 60 tablet 3 Sig: One tab po bid prn Authorizing Provider: ZEINAB WOOD predniSONE (DELTASONE) 5 mg tablet 60 tablet 3 Sig: TAKE 1 TO 2 TABLETS BY MOUTH EVERY DAY Authorizing Provider: ZEINAB WOOD MD * Telephone Encounter - Zeinab Wood MD - 09/09/2024 12:52 PM EST The following approved medication requests have been transmitted electronically. Requested Prescriptions Signed Prescriptions Disp Refills etodolac (LODINE) 400 mg tablet 60 tablet 3 Sig: One tab po bid prn Authorizing Provider: ZEINAB WOOD predniSONE (DELTASONE) 5 mg tablet 60 tablet 3 Sig: TAKE 1 TO 2 TABLETS BY MOUTH EVERY DAY Authorizing Provider: ZEINAB WOOD MD * Telephone Encounter - Susy Escamilla LPN - 09/06/2024 11:11 AM EST No current labs ordered . Please advise if labs are appropriate. Route to [facility] Nurse in order to follow up with faxing Lab orders to [facility] [phone] . * Telephone Encounter - Alisha Paniagua RN - 09/01/2024 5:10 PM EST Please monitor for receipt of labs. No labs completed presently. * Telephone Encounter - Zeinab Wood MD - 08/31/2024 4:25 PM EST She needs labs before I can give her refill. Labs in epic. Zeinab Wood MD * Telephone Encounter - Tory Thomas LPN - 08/29/2024 11:22 AM EST Most recent Rheumatology visit: 05/30/2024 (with Zeinab Wood) Last Bone Density on file: None on file Rheumatology Care Team: None on file Recent Office Visits - This Specialty 05/30/2024 Inflammatory arthritis Rheumatology Zeinab Wood MD 09/28/2023 Inflammatory arthritis Rheumatology Zeinab Wood MD 09/29/2022 Inflammatory arthritis Rheumatology Zeinab Wood MD Upcoming Rheumatology Appointments - Next 365 Days Visit Type Date Time Department [facility] EST [facility] 12/28/2024 9:20 AM [facility] Last Ophthalmology Check for Plaquenil (Hydroxychloroquine) [...] Instance) Lab Orders None documented in this encounterHenry County Hospital12-24-2024 Telephone encounter Note * Telephone Encounter - Susy Escamilla LPN - 09/06/2024 11:11 AM EST No current labs ordered . Please advise if labs are appropriate. Route to [facility] Nurse in order to follow up with faxing Lab orders to [place] [phone] . [facility]12-19-2024 Telephone encounter Note* Telephone Encounter - Alisha Paniagua RN - 09/01/2024 5:10 PM EST Please monitor for receipt of labs. No labs completed presently. [facility]12-18-2024 Telephone encounter Note* Telephone Encounter - Zeinab Wood MD - 08/31/2024 4:25 PM EST She needs labs before I can give her refill. Labs in epic. Zeinab Wood MD [facility]12-16-2024 Telephone encounter Note* Telephone Encounter - Tory Thomas LPN - 08/29/2024 11:22 AM EST Most recent Rheumatology visit: 05/30/2024 (with Zeinab Wood) Last Bone Density on file: None on file Rheumatology Care Team: None on file Recent Office Visits - This Specialty 05/30/2024 Inflammatory arthritis Rheumatology Zeinab Wood MD 09/28/2023 Inflammatory arthritis Rheumatology Zeinab Wood MD 09/29/2022 Inflammatory arthritis Rheumatology Zeinab Wood MD Upcoming Rheumatology Appointments - Next 365 Days Visit Type Date Time Department [facility] 12/28/2024 9:20 AM [facility] Last Ophthalmology Check for Plaquenil (Hydroxychloroquine) [...] Open Future (Single Instance) Lab Orders None [facility]10-30-2024 History of Present illness Narrative* Estevan Polanco, TICKET DISPATCHER - 07/13/2024 5:30 PM EDT Images from the original note [...] 20 tablet; Refill: 0 documented in this encounterKindred [id number] NoteHNO ID: [id number] Author: ZEINAB WOOD MD Service: ? Author [...] recent and remote event (more content not included)...[facility]09-16-2024 History of Present illness Narrative* Zeinab Wood MD - 05/30/2024 9:52 AM EDT Kourtney Novak is a 47 year old [...] but now has ''pulling of tendons '' sensationcurrently Em stiffness- for about half hour No [...] FM- agree with diagnosis Was on savella marco aut feels it was not helping Tried lyrica [...] No Swollen Glands: No documented in this encounterHenry County Hospital09-12-2024 Telephone encounter Note * Telephone Encounter - Eun Stanford APRN.CNP - 05/26/2024 10:59 AM EDT The following approved medication requests have been transmitted electronically. Requested Prescriptions Signed Prescriptions Disp Refills methocarbamol (ROBAXIN) 500 mg tablet 45 tablet 2 Sig: Take 1 tablet by mouth two times a day as needed. Authorizing Provider: EUN STANFORD APRN.CNP [facility]09-12-2024 Miscellaneous Notes* Telephone Encounter - Eun Stanford APRN.CNP - 05/26/2024 10:59 AM EDT The following approved medication requests have been transmitted electronically. Requested Prescriptions Signed Prescriptions Disp Refills methocarbamol (ROBAXIN) 500 mg tablet 45 tablet 2 Sig: Take 1 tablet by mouth two times a day as needed. Authorizing Provider: EUN STANFORD APRN.CNP * Telephone Encounter - Tala Summers - 05/26/2024 10:14 AM EDT Physician: Eliceo Call from patient requesting refill. [...] Pharmacy Name: [facility] documented in this encounterHenry County Hospital09-12-2024 Telephone encounter Note * Telephone Encounter - Kristopher Tala - 05/26/2024 10:14 AM EDT Physician: Eliceo Call from patient requesting refill. [...] day as needed. Pharmacy Name: [facility]07-12-2024 Telephone encounter Note* Telephone Encounter - Zeinab Wood MD - 03/25/2024 12:32 PM EDT The following approved medication requests have been transmitted electronically. Requested Prescriptions Pending Prescriptions Disp Refills predniSONE (DELTASONE) 5 mg tablet [Pharmacy Med Name: prednisone 5 mg tablet] 60 tablet 3 Sig: TAKE 1 TO 2 TABLETS BY MOUTH EVERY DAY Zeinab Wood MD [facility]07-12-2024 Miscellaneous Notes* Telephone Encounter - Zeinab Wood MD - 03/25/2024 12:32 PM EDT The following approved medication requests have been transmitted electronically. Requested Prescriptions Pending Prescriptions Disp Refills predniSONE (DELTASONE) 5 mg tablet [Pharmacy Med Name: prednisone 5 mg tablet] 60 tablet 3 Sig: TAKE 1 TO 2 TABLETS BY MOUTH EVERY DAY Zeinab Wood MD * Telephone Encounter - Susy EscamillaMARY ELLEN - 03/25/2024 11:25 AM EDT No standing orders on file Most recent Rheumatology visit: 09/28/2023 (with Zeinab Wood) Rheumatology Care Team: None on file Recent Office Visits - This Specialty 09/28/2023 Inflammatory arthritis Rheumatology Zeinab Wood MD 09/29/2022 Inflammatory arthritis Rheumatology Zeinab Wood MD 01/20/2022 Inflammatory arthritis Rheumatology Zeinab Wood MD Upcoming Rheumatology Appointments - Next 365 Days Visit Type Date Time Department [facility] 05/30/2024 9:40 AM [facility] Last Ophthalmology Check for Plaquenil (Hydroxychloroquine) [...] (HCC), Preop testing TYPE AND SCREEN,30 DAY [[id number]] 02/03/24 05/04/24 02/03/24 Auth. provider: Erik Pineda MD Assoc. diagnoses: Intracranial meningioma (HCC), Preop testing documented in this encounterHenry County Hospital07-12-2024 Telephone encounter Note * Telephone Encounter - Susy Escamilla LPN - 03/25/2024 11:25 AM EDT No standing orders on file Most recent Rheumatology visit: 09/28/2023 (with Zeinab Wood) Rheumatology Care Team: None on file Recent Office Visits - This Specialty 09/28/2023 Inflammatory arthritis Rheumatology Zeinab Wood MD 09/29/2022 Inflammatory arthritis Rheumatology Zeinab Wood MD 01/20/2022 Inflammatory arthritis Rheumatology Zeinab Wood MD Upcoming Rheumatology Appointments - Next 365 Days Visit Type Date Time Department [facility] 05/30/2024 9:40 AM [facility] Last Ophthalmology Check for Plaquenil (Hydroxychloroquine) [...] (HCC), Preop testing TYPE AND SCREEN,30 DAY [[id number]] 02/03/24 05/04/24 02/03/24 Auth. provider: Erik Pineda MD Assoc. diagnoses: Intracranial meningioma (HCC), Preop testing [facility]07-10-2024 Telephone encounter Note* Telephone Encounter - Emma Vargas - 03/23/2024 2:05 PM EDT Patient last seen 02/05/2024. [facility]07-10-2024 Miscellaneous Notes* Telephone Encounter - Emma Vargas - 03/23/2024 2:05 PM EDT Patient last seen 02/05/2024. documented in this encounterHenry County Hospital06-25-2024 Telephone encounter Note * Telephone Encounter - Mario Alberto Phillips RN - 03/08/2024 2:39 PM EDT ADDENDUM: March 08, 2024 2:39 PM Distance Health Visit on 02/02/2024 including the details for the patient's surgery was faxed to Moira DONOVAN ( [facility]) . Mario Alberto Phillips RN, Edging Machine Feeder [facility]06-25-2024 Miscellaneous Notes* Telephone Encounter - Mario Alberto Phillips RN - 03/08/2024 2:39 PM EDT ADDENDUM: March 08, 2024 2:39 PM Distance Health Visit on 02/02/2024 including the details for the patient's surgery was faxed to Moira DONOVAN ( [facility]) . Mario Alberto Phillips RN, Edging Machine Feeder * Telephone Encounter - Mario Alberto Phillips RN - 03/08/2024 2:17 PM EDT Spoke with nurse Pizarro. We discussed that the patient's epidural steroid injection on 03/14/2024 for her neck pain (C7/T1) isfar out from her surgery for the craniotomy with Dr Erik Pineda (04/04/24). Mario Alberto Phillips RN, Edging Machine Feeder * Telephone Encounter - Brain Ruth - 03/08/2024 1:46 PM EDT General Call Caller : Moira harrison at [facility] Contact Reason for Call : Nurse would like to confirm that pt is allowed to receive steroid injection priorto surgery-80mg of kenalog Patient requesting return call ? Yes documented in this encounterHenry County Hospital06-25-2024 Telephone encounter Note * Telephone Encounter - Mario Alberto Phillips RN - 03/08/2024 2:17 PM EDT Spoke with nurse Pizarro. We discussed that the patient's epidural steroid injection on 03/14/2024 for her neck pain (C7/T1) isfar out from her surgery for the craniotomy with Dr Erik Pineda (04/04/24). Mario Alberto Shidiac RN, Edging Machine Feeder [facility]06-25-2024 Telephone encounter Note* Telephone Encounter - Brain Ruth - 03/08/2024 1:46 PM EDT General Call Caller : Moira Ortiz nurse at [facility] Contact Reason for Call : Nurse would like to confirm that pt is allowed to receive steroid injection priorto surgery-80mg of kenalog Patient requesting return call ? Yes [facility]05-29-2024 Telephone encounter Note* Telephone Encounter - Desmet Gifty Rea - 02/10/2024 3:12 PM EDT Images from the original note were not included. Prior Authorization for Medications Requested by ([facility] [facility], Pharmacy, Patient Call, Fax) : [facility] Name: [facility] Phone # : [phone] Name of Medication : Robaxin Dose : 500 mg Tablet If renewal, auth date expiration: NA Prescribing Provider: Eliceo Last OV: 02/05/2024 with Juan Luisdamarie Insurance Provider : Medicare / [employer]. Is insurance card scanned in, including Rx info? Medicare card scanned - no RX information [facility] [place] E-PA? Yes [facility]05-29-2024 Miscellaneous Notes* Telephone Encounter - Desmet Gifty Rea - 02/10/2024 3:12 PM EDT Images from the original note were not included. Prior Authorization for Medications Requested by ([facility], Pharmacy, Patient Call, Fax) : [facility] Name: [facility] Phone # : [phone] Name of Medication : Robaxin Dose : 500 mg Tablet If renewal, auth date expiration: NA Prescribing Provider: Eliceo Last OV: 02/05/2024 with Juan Luisdamarie Insurance Provider : Medicare / [employer]. Is insurance card scanned in, including Rx info? Medicare card scanned - no RX information Insurance Phone : [facility] [place]: NA E-PA? Yes documented in this encounterHenry [facility] Hospital05-[facility] History of Present illness Narrative* Rachele Fenton APRN.PIE CUTTER - 02/05/2024 7:00 AM EDT Images from the original note were [...] visit. Either the patient or their legal labor relations representative has been informed of the risks [...] for a preventative. Additionally, she can trial tizanidine4 mg po q8h prn headache as a rescue. Her meningiomas appear to have enlarged and demonstrate progression since her last screening, and there is the concern of osseous invasion. She has an appointment with neurosurgery on 06/30/23. I do NOT believe that her meningioma is significantly influencing these headaches. I concur with Dr. Lou that most likely her meningiomas areasymptomatic at this time. She will follow-up in [...] about 5 headache days a month now. Tizanidinemakes her very tired (even 1/2 dose), so [...] these with the patient: yes Rachele Fenton APRN.PIE CUTTER HEADACHE SCORES: 06/19/2023 02/01/2024 Headache Questions ID [...] havea botox injection at my last visit PRN [...] soft tissue component identified in the orbit. Hybrid Car Mechanic: PSCB Transcribe Date/Time: Jan 31 2024 3:33P [...] Service: Virtual Visit 30 minutes Rachele Fenton APRN.JOSSIE Headache Section [facility] February 05, 2024 documented in this encounterHenry County Hospital05-21-2024 History of Present illness Narrative* Alexandria Bartholomew MD - 02/02/2024 7:36 PM EDT Images from the original note were not included. SECTION OF SKULL BASE SURGERY MINIMALLY INVASIVE CRANIAL BASE & PITUITARY SURGERY PROGRAM [facility] CC: Patient Care Team: Sammie Gonzalez MD [...] for meningiomas (including observation, radiotherapy, radiosurgery, and surgery)were reviewed in detail. Ms Novak wishes to proceed with surgical resection as planned in ven that her tumor has shown growth since [...] which included preparing to see the patient, fhjs-al-made patient care, completing clinical documentation, performing a medically appropriate examination, counseling and educating the patient/family/caregiver, communicating with other HCPs, independently interpreting resultsand care coordination. Alexandria Bartholomew MD PhD Subjective: Patient is unaccompanied. Ms Novak informs me that her meningioma was found incidentally when she was worked up for headaches and cognitive changes, The latter was found to be due toiron deficiency and she subsequently improved following treatment for this. She denies any symptomsof proptosis or vision changes. She has not [...] sphenoid wing without significant change since 05/06/2023. Hybrid Car Mechanic: PSCB Transcribe Date/Time: Jan 31 2024 5:10P Dictated by : WESTLEY IYER MD This examination was interpreted and the report reviewed and electronically signed by: WESTLEY IYER MD on Jan 31 2024 5:28PM EST Results-Findings * * *Final Report* * * DATE OF EXAM: Jan 29 2024 1:56PM [id number] - MRI SKULL BASE WO/W IVCON [...] tissue mass extending into the of the data analytics analyst or parapharyngeal spaces. The soft tissue planes of the, retropharyngeal, and prevertebral spaces are maintained. The visualized parotid glands are normal in appearance. Nasopharynx/Oropharynx: The nasopharynx and oropharynx are normal in appearance. Result History documented in this encounterHenry County Hospital05-21-2024 Telephone encounter Note * Telephone Encounter - Mario Alberto Phillips RN - 02/02/2024 10:23 AM EDT Called the patient confirming virtual appointment today at [address] Alexandria Bartholomew ( Skull base fellow from Dr Pineda team). [facility]05-21-2024 Miscellaneous Notes* Telephone Encounter - Mario Alberto Phillips RN - 02/02/2024 10:23 AM EDT Called the patient confirming virtual appointment today at [address] Alexandria Bartholomew ( Skull base fellow from Dr Pineda team). documented in this encounterHenry County Hospital05-20-2024 Telephone encounter Note * Telephone Encounter - Jumana Zapien RN - 02/01/2024 10:39 AM EDT Pharmacy requesting refill via [employer]. Last OV: 06/26/2023 Future OV: 02/05/2024 with Rachele Fenton APRN.PIE CUTTER Last prescribed: 06/26/2023 Requested Prescriptions Pending Prescriptions Disp Refills tiZANidine (ZANAFLEX) 4 mg tablet [Pharmacy Med Name: tizanidine 4 mg tablet] 60 tablet 3 Sig: take 1 tablet by mouth every 8 hours as needed [facility]05-20-2024 Miscellaneous Notes* Telephone Encounter - Jumana Zapien RN - 02/01/2024 10:39 AM EDT Pharmacy requesting refill via [employer]. Last OV: 06/26/2023 Future OV: 02/05/2024 with Rachele Fenton APRN.PIE CUTTER Last prescribed: 06/26/2023 Requested Prescriptions Pending Prescriptions Disp Refills tiZANidine (ZANAFLEX) 4 mg tablet [Pharmacy Med Name: tizanidine 4 mg tablet] 60 tablet 3 Sig: take 1 tablet by mouth every 8 hours as needed documented in this encounterHenry County Hospital05-17-2024 NoteHNO ID: [id number] Author: KOFI [place] CT Service: Radiology Author [...] PATIENT PRESENTS WITH AN IMPLANTABLE OR ATTACHED ENTRY LEVEL PARALEGAL: No RADIOLOGY DEPARTMENT: CT; Exam(s) Completed: Brain STERO PERIPHERAL IV DATA: Not applicable SIGNED BY: KAYLEEN Sharma January 29, 2024 12:53 [facility]05-17-2024 NoteHNO ID: [id number] Author: AILYN NEUMANN RT(R) Service: ? Author [...] PATIENT PRESENTS WITH AN IMPLANTABLE OR ATTACHED ENTRY LEVEL PARALEGAL: No ALLERGIES: Reviewed and unchanged CONTRAST ALLERGY: NO. EXAM: MRI - CONTRAST TYPE: GROUP II PERIPHERAL IV DATA: Ambulatory: A peripheral IV was started in the Left antecubital site with a Angio cath: 22 gauge. RADIOLOGY DEPARTMENT: MR; Exam(s) Completed: Head: Routine Brain SIGNATURE: Ailyn Neumann RDMS, RVT- She[facility] ([facility]) PATIENT NAME: Kourtney Novak DATE: January 29, 2024 TIME: 1:06 [facility]05-17-2024 History of Present illness Narrative* Kofi [place] CT - 01/29/2024 2:00 PM EDT Radiology Service Progress Note PATIENT NAME: Kourtney Novak DATE OF SERVICE: January 29, 2024 TIME: 12:53 PM PATIENT IDENTITY VERIFICATION COMPLETED USING TWO (2) IDENTIFIERS: Name and Date of confirmedby patient verbally. FALL SCREENING: Has the patient had 2 falls in the last year or 1 fall with injury or currently using an Ambulatory Assistive Device (Walker, Cane, Wheelchair, Crutches, etc.)? No PATIENT GENDER DATA: Female. status: : No status: NO. PATIENT RELEVANT IMPLANT DATA REVIEWED: Not Applicable PATIENT PRESENTS WITH AN IMPLANTABLE OR ATTACHED ENTRY LEVEL PARALEGAL: No RADIOLOGY DEPARTMENT: CT; Exam(s) Completed: Brain STERO PERIPHERAL IV DATA: Not applicable SIGNED BY: KAYLEEN Sharma January 29, 2024 12:53 PM documented in this encounterHenry County Hospital05-17-2024 History of Present illness Narrative* Ailyn Neumann RT(R) - 01/29/2024 12:45 PM EDT Radiology Service Progress Note DATE OF SERVICE: [...] PATIENT PRESENTS WITH AN IMPLANTABLE OR ATTACHED ENTRY LEVEL PARALEGAL: No ALLERGIES: Reviewed and unchanged CONTRAST ALLERGY: [...] 2024 TIME: 1:06 PM documented in this encounterHenry County Hospital05-15-2024 Telephone encounter Note * Telephone Encounter - Zeinab Wood MD - 01/27/2024 3:29 PM EDT The following approved medication requests have been transmitted electronically. Requested Prescriptions Pending Prescriptions Disp Refills etodolac (LODINE) 400 mg tablet 60 tablet 3 Sig: One tab po bid prn Zeinab Wood MD [facility]05-15-2024 Miscellaneous Notes* Telephone Encounter - Zeinab Wood MD - 01/27/2024 3:29 PM EDT The following approved medication requests have been transmitted electronically. Requested Prescriptions Pending Prescriptions Disp Refills etodolac (LODINE) 400 mg tablet 60 tablet 3 Sig: One tab po bid prn Zeinab Wood MD * Telephone Encounter - Rohit Khan MA - 01/27/2024 2:26 PM EDT Most recent Rheumatology visit: 09/28/2023 (with Zeinab Wood) Rheumatology Care Team: None on file Recent Office Visits - This Specialty 09/28/2023 Inflammatory arthritis Rheumatology Zeinab Wood MD 09/29/2022 Inflammatory arthritis Rheumatology Zeinab Wood MD 01/20/2022 Inflammatory arthritis Rheumatology Zeinab Wood MD Upcoming Rheumatology Appointments - Next 365 Days Visit Type Date Time Department [facility] 05/30/2024 9:40 AM [facility] Last Ophthalmology Check for Plaquenil (Hydroxychloroquine) [...] Instance) Lab Orders None documented in this encounterHenry County Hospital05-15-2024 Telephone encounter Note * Telephone Encounter - Rohit Khan MA - 01/27/2024 2:26 PM EDT Most recent Rheumatology visit: 09/28/2023 (with Zeinab Wood) Rheumatology Care Team: None on file Recent Office Visits - This Specialty 09/28/2023 Inflammatory arthritis Rheumatology Zeinab Wood MD 09/29/2022 Inflammatory arthritis Rheumatology Zeinab Wood MD 01/20/2022 Inflammatory arthritis Rheumatology Zeinab Wood MD Upcoming Rheumatology Appointments - Next 365 Days Visit Type Date Time Department [facility] 05/30/2024 9:40 AM [facility] Last Ophthalmology Check for Plaquenil (Hydroxychloroquine) [...] Open Future (Single Instance) Lab Orders None [facility]05-07-2024 Telephone encounter Note* Telephone Encounter - Mario Alberto Phillips RN - 01/19/2024 10:39 AM EDT Spoke with Kourtney again , after discussing surgery planning with Dr Alexandria Bartholomew ( Skull base fellow from Dr Erik Pineda team). CT Brain Stereo and Skull Base MRI were ordered for surveillance and surgery planning. Patient will be scheduled for a virtual visit after the CT/MRI appointments on 01/29/2024 for results review and surgery discussion and consent. Both appointments were confirmed. [facility]05-07-2024 Miscellaneous Notes* Telephone Encounter - Mario Alberto Phillips RN - 01/19/2024 10:39 AM EDT Spoke with Kourtney again , after discussing surgery planning with Dr Alexandria Bartholomew ( Skull base fellow from Dr Erik Pineda team). CT Brain Stereo and Skull Base MRI were ordered for surveillance and surgery planning. Patient will be scheduled for a virtual visit after the CT/MRI appointments on 01/29/2024 for results review and surgery discussion and consent. Both appointments were confirmed. * Telephone Encounter - Mario Alberto Phillips RN - 01/19/2024 9:30 AM EDT Spoke with Ms Kourtney Novak today confirming surgery on 04/11/[address] Erik Pineda. Right middle sphenoid wing Preoperative appointments will be scheduled ~ 2 weeks prior to surgery date at a [facility] facility closer to the patient's home. Mario Alberto Phillips RN, Edging Machine Feeder documented in this encounterHenry County Hospital05-07-2024 Telephone encounter Note * Telephone Encounter - Mario Alberto Phillips RN - 01/19/2024 9:30 AM EDT Spoke with Ms Kourtney Novak today confirming surgery on 04/11/[address] Erik Pineda. Right middle sphenoid wing Preoperative appointments will be scheduled ~ 2 weeks prior to surgery date at a [facility] facility closer to the patient's home. Mario Alberto Phillips RN, Edging Machine Feeder [facility]04-26-2024 Telephone encounter Note* Telephone Encounter - Rohit Khan MA - 01/08/2024 3:14 PM EDT Lab results received from [facility]. Placed in dr Wood folder for review,copy sent to scanning. [facility]04-26-20[facility] Miscellaneous Notes* Telephone Encounter - Rohit Khan MA - 01/08/2024 3:14 PM EDT Lab results received from [facility]. Placed in dr Wood foldbetty for review,copy sent to scanning. documented in this encounterHenry County Hospital04-23-2024 Telephone encounter Note * Telephone Encounter - Mario Alberto Phillips RN - 01/05/2024 1:04 PM EDT Spoke with Ms. Kourtney Johnson Kishore today confirming surgery on 03/28/[address] Erik Pineda. Preoperative appointments to be scheduled at a [facility] facility near the patient's home. [facility]04-[facility] Miscellaneous Notes* Telephone Encounter - Mario Alberto Phillips RN - 01/05/2024 1:04 PM EDT Spoke with Ms. Kourtney Johnson Tingsoraida today confirming surgery on Thu03/28/[address] Erik Pineda. Preoperative appointments to be scheduled at a [facility] facility near the patient's home. documented in this encounterHenry County Hospital04-22-2024 Telephone encounter Note * Telephone Encounter - Michelle Thompson MA - 01/04/2024 4:17 PM EDT Orders faxed. Confirmation received. [facility]04-22-20[facility] Miscellaneous Notes* Telephone Encounter - Michelle Thompson MA - 01/04/2024 4:17 PM EDT Orders faxed. Confirmation received. * Telephone Encounter - Michelle Thompson MA - 01/04/2024 2:43 PM EDT Printed labs. Sent msg to pt to clarify which Counts [facility] Lab to fax to. Labs/Fax sheet in Michelle'slime green folder. Please fax once clarification is received. * Telephone Encounter - Zeinab Wood MD - 01/04/2024 2:03 PM EDT Labs are ordered, please print and fax per patient request. Zeinab Wood MD * Telephone Encounter - Verenice Ga RN - 01/04/2024 1:45 PM EDT Patient calling Needs 4/19/24 Lab Orders in [facility] please (pended) Also requesting to FAX 01/01/[address] [facility] She will send their FAX # in My Chart documented in this encounterHenry County Hospital04-22-2024 Telephone encounter Note * Telephone Encounter - Michelle Thompson MA - 01/04/2024 2:43 PM EDT Printed labs. Sent msg to pt to clarify which Counts Include [facility] Lab to fax to. Labs/Fax sheet in Michelle'slime green folder. Please fax once clarification is received. [facility]04-[facility] Telephone encounter Note* Telephone Encounter - Zeinab Wood MD - 01/04/2024 2:03 PM EDT Labs are ordered, please print and fax per patient request. Zeinab Wood MD [facility] Telephone encounter Note* Telephone Encounter - Verenice Ga RN - 01/04/2024 1:45 PM EDT Patient calling Needs 01/01/24 Lab Orders in [facility] please (pended) Also requesting to FAX 01/01/[address] [facility] She will send their FAX # in My Chart [facility]03-20-20[facility] Miscellaneous Notes* Telephone Encounter - Tory Thomas LPN - 12/02/2023 1:00 PM EDT Called and spoke to patient and she stated she has appointment for eye exam in 01/2024. * Telephone Encounter - Tory Thomas LPN - 11/30/2023 10:45 AM EDT Called patient and left vm message that eye exam needed and medication sent to pharmacy and if patient had any question please call [phone]. My Chart Message also sent. * Telephone Encounter - Zeinab Wood MD - 11/30/2023 10:21 AM EDT She needs her eyes examined yearly. The following approved medication requests have been transmitted electronically. Requested Prescriptions Signed Prescriptions Disp Refills hydrOXYchloroQUINE (PLAQUENIL) 200 mg tablet 60 tablet 3 Sig: take 1 tablet by mouth twice daily Authorizing Provider: ZEINAB WOOD MD * Telephone Encounter - Stephane Gamboa OCCA - 11/30/2023 8:45 AM EDT Most recent Rheumatology visit: 09/28/2023 (with Zeinab Wood) Rheumatology Care Team: None on file Recent Office Visits - This Specialty 09/28/2023 Inflammatory arthritis Rheumatology Zeinab Wood MD 09/29/2022 Inflammatory arthritis Rheumatology Zeinab Wood MD 01/20/2022 Inflammatory arthritis Rheumatology Zeinab Wood MD Upcoming Rheumatology Appointments - Next 365 Days Visit Type Date Time Department [facility] 05/30/2024 9:40 AM [facility] Last Ophthalmology Check for Plaquenil (Hydroxychloroquine) [...] Instance) Lab Orders None documented in this encounterHenry County Hospital02-29-2024 Miscellaneous Notes* Telephone Encounter - Zeinab Wood MD - 11/12/2023 3:03 PM EST The following approved medication requests have been transmitted electronically. Requested Prescriptions Pending Prescriptions Disp Refills predniSONE (DELTASONE) 5 mg tablet 60 tablet 3 Si-2 tabs po qd Zeinab Wood MD * Telephone Encounter - Tory Thomas LPN - 11/12/2023 2:18 PM EST Most recent Rheumatology visit: 09/28/2023 (with Zeinab Wood) Rheumatology Care Team: None on file Recent Office Visits - This Specialty 09/28/2023 Inflammatory arthritis Rheumatology Zeinab Wood MD 09/29/2022 Inflammatory arthritis Rheumatology Zeinab Wood MD 01/20/2022 Inflammatory arthritis Rheumatology Zeinab Wood MD Upcoming Rheumatology Appointments - Next 365 Days Visit Type Date Time Department [facility] 05/30/2024 9:40 AM [facility] Last Ophthalmology Check for Plaquenil (Hydroxychloroquine) [...] Instance) Lab Orders None documented in this encounterHenry County Hospital02-28-2024 Miscellaneous Notes* Telephone Encounter - Zeinab Wood MD - 11/11/2023 3:11 PM EST The following approved medication requests have been transmitted electronically. Requested Prescriptions Pending Prescriptions Disp Refills hydrOXYchloroQUINE (PLAQUENIL) 200 mg tablet 60 tablet 6 Sig: Take 1 tablet by mouth two times a day. Zeinab Wood MD * Telephone Encounter - Tory Thomas LPN - 11/11/2023 12:42 PM EST Scan on 07/15/2022 1:08 PM by Provider, [...] Visit Type Date Time Department [facility] 05/30/2024 9:40 AM [facility] Last Ophthalmology Check for Plaquenil (Hydroxychloroquine) Last [...] Instance) Lab Orders None documented in this encounterHenry County Hospital02-28-2024 Miscellaneous Notes* Telephone Encounter - Mario Alberto Phillips RN - 11/11/2023 11:37 AM EST Spoke with Ms.Mandie Alex Novak today following up on the [employer] message from 10/08/2023. She sent a message about having symptoms of blurry vision and was advised to schedule an appointment with ophthalmology. Today the patient stated that the blurry vision was 1 incident and that she did not have any visionchanges since. She was made aware to send an update or call for any questions or concerns. Mario Alberto Phillips RN, Edging Machine Feeder documented in this encounterHenry County Hospital02-27-2024 Miscellaneous Notes* Telephone Encounter - Nathaly Kaplan MA - 11/10/2023 9:56 AM EST Most recent Rheumatology visit: 09/28/2023 (with Zeinab Wood) Rheumatology Care Team: None on file Recent Office Visits - This Specialty 09/28/2023 Inflammatory arthritis Rheumatology Zeinab Wood MD 09/29/2022 Inflammatory arthritis Rheumatology Zeinab Wood MD 01/20/2022 Inflammatory arthritis Rheumatology Zeinab Wood MD Upcoming Rheumatology Appointments - Next 365 Days Visit Type Date Time Department [facility] 05/30/2024 9:40 AM [facility] Last Ophthalmology Check for Plaquenil (Hydroxychloroquine) [...] Instance) Lab Orders None documented in this encounterHenry County Hospital10-23-2023 Miscellaneous Notes* Telephone Encounter - Mario Alberto Phillips RN - 07/06/2023 3:23 PM EDT Spoke with Ms. Kourtney Novak. We discussed that it is so far out to schedule surgery in March 2024. We discussed option of possible surgery dates. She will be contacted during late December- January 2024 toconfirm the date of surgery and schedule the preoperative appointments. Mario Alberto Phillips RN, Edging Machine Feeder * Telephone Encounter - Justine Pagan - 07/02/2023 3:04 PM EDT General Call Caller : Pt Contact Reason for Call : Pt would like to go forward w scheduling surgery. However, she would like surgeryto be scheduled in March 2024, pt would like to discuss further Patient requesting return call ? Yes documented in this encounterHenry County Hospital10-23-2023 Miscellaneous Notes* Telephone Encounter - Mario Alberto Phillips RN - 07/06/2023 3:21 PM EDT Spoke with Ms. Kourtney Novak. We discussed that it is so far out to schedule surgery in March 2024. We discussed option of possible surgery dates. She will be contacted during late December- January 2024 toconfirm the date of surgery and schedule the preoperative appointments. Mario Alberto Phillips RN, Edging Machine Feeder documented in this [facility]10-17-2023 Instructions* Patient Instructions* Heather Moy APRN.CNP - 06/30/2023 11:30 AM [...] (due back Apr 2024). documented in this encounterHenry County Hospital10-17-2023 Nurse Note* Yuly Do Ma - 06/30/2023 10:52 AM EDT Additional intake questions: Has the patient had fever, nausea, vomiting, diarrhea, constipation, fatigue for > 1 week? No Does the patient have a decreased appetite? No Does patient want to see a Plastic Tubing Insulation Supervisor? No (yes to any of above refer patient to schedulers for dietitian appointment) ) Does patient have any new or increased numbness or tingling of extremities? No Is patient interested in fertility information? No Does patient need any prescription refills? No Does patient have an advanced directive in place? No, Patient referred to [facility] documented in this encounterHenry County Hospital10-17-2023 History of Present illness Narrative* Erik Pineda MD - 06/30/2023 10:49 AM EDT Images from the original note were not included. SECTION OF SKULL BASE SURGERY MINIMALLY INVASIVE CRANIAL BASE & PITUITARY SURGERY PROGRAM [facility] CC: Patient Care Team: Sammie Gonzalez MD as PCP - General (Family Medicine) Laron Lou DO - [facility] ASSESSMENT: In summary, Kourtney Novak is a very pleasant 47 year old female with a right middle sphenoid wing mass consistent with meningioma. It was initially diagnosed in 2016, nowwith interval growth. We believe this is most likely a meningioma although the possibility that this could represent another type of tumor was also discussed. The natural history and treatment options for meningiomas (including observation, radiotherapy, radiosurgery (Gamma Knife), and surgery) were reviewed in detail. We discussed that she will likely need treatment at some point in her lifetimeand surgery is a reasonable consideration. PLAN: She will consider management options and contact our office with her final decision in the next 1-2 weeks. If observation, plan to repeat MRI brain scan and follow-up in 12 months from last (due April 2024). She can have imaging done locally and follow-up via virtual visit. Heather Moy APRN.PIE CUTTER I have reviewed the progess note obtained [...] which included preparing to see the patient, [id number] patient care, completing clinical documentation, performing a medically appropriate examination, counseling and educating the patient/family/caregiver, communicating with other HCPs, independently interpreting resultsand care coordination. Erik Pineda MD The patient is referred by Dr. Laron Lou for neurosurgical evaluation. Final recommendations will be communicated back to the requesting physician by way of the shared medical records, or letters to requesting physician via US Mail. Chief Complaint: Meningioma History of Present Illness: Patient is unaccompanied. The patient is a 47 year old female who presents with known Right middle cranial fossa meningioma. Of note, this was initially diagnosed in 2015 during work-up of headaches. She was unaware of the tumor at this time and did not follow-up. Most recently, in NovemberApril 2023 had repeat scan for imbalance and trouble thinking and the above mass was noted to have growth. She was seen by Dr. Laron Lou for opinion and recommendation was made [...] to the prior exam. documented in this encounterHenry [facility]10-13-[facility]23 Instructions* Patient Instructions* Fahad Corey MD - 06/26/2023 5:39 PM [...] 26, 2023 5:39 PM documented in this encounterHenry County Hospital10-13-2023 History of Present illness Narrative* Fahad Corey MD - 06/26/2023 5:06 PM EDT HEADACHE MEDICINE NEW EVALUATION June 26, 2023 5:00 PM I have communicated my name and active licensure. The patient's identity and physical location wereverified at the time of this visit. Either the patient or their legal labor relations representative has been informed of the risks and benefits of -- and alternatives to -- treatment through a remote evaluation andconsents to proceed with the evaluation remotely. Headache 1 Diagnosis: Pending evaluation Onset: - she reports that she developed migraines as a teenager, but they self- resolved. She reports that she started getting new [...] for a preventative. Additionally, she can trial tizanidine4 mg po q8h prn headache as a rescue. Her meningiomas appear to have enlarged and demonstrate progression since her last screening, and there is the concern of osseous invasion. She has an appointment with neurosurgery on 06/30/23. I do NOT believe that her meningioma is significantly influencing these headaches. I concur with Dr. Lou that most likely her meningiomas areasymptomatic at this time. She will follow-up in 3 months. Fahad Corey MD June 26, 2023 5:36 PM documented in this encounterHenry County Hospital08-30-2023 Miscellaneous Notes* Telephone Encounter - Moira Goodrich APRN.PIE CUTTER - 05/13/2023 1:13 PM EDT Time Frame: Next available Provider: Carmine (possible [facility]) Referring: self Please instruct patient to hand carry/ upload images prior to appt Images also requested via Electronically Dx: Multiple meningiomas with interval growth Multiple meningiomas with interval growth since 2015. MRI done for dizziness. [facility] [place] [address] [place] [address] MRI Report Signed Patient: Kourtney Novak MR#: [id number] : 1975 Acct:[id number] Age/Sex: 47 / F ADM Date: 05/06/23 Loc: Room: Type: [facility] Attending Dr: Sammie Gonzalez MD Copies [...] frontal subcortical white matter. documented in this encounterHenry County Hospital07-31-2023 Miscellaneous Notes* Telephone Encounter - Zeinab Wood MD - 04/13/2023 3:08 PM EDT The following approved medication requests have been transmitted electronically. Requested Prescriptions Pending Prescriptions Disp Refills DULoxetine (CYMBALTA) 60 mg capsule 30 capsule 3 Sig: Take 1 capsule by mouth once daily. Zeinab Wood MD * Telephone Encounter - Beti Monk LPN - 04/13/2023 11:37 AM EDT Most recent Rheumatology visit: 09/29/2022 (with Zeinab Wood) Recent Office Visits - This Specialty 09/29/2022 Inflammatory arthritis Rheumatology Zeinab Wood MD 01/20/2022 Inflammatory arthritis Rheumatology Zeinab Wood MD 07/04/2021 Pain in joint, multiple sites Rheumatology Zeinab Wood MD Upcoming Rheumatology Appointments - Next 365 Days Visit Type Date Time Department [facility] 09/28/2023 3:00 PM [facility] Last Ophthalmology Check for Plaquenil (Hydroxychloroquine) [...] Instance) Lab Orders None documented in this encounterHenry County Hospital07-31-2023 Miscellaneous Notes* Telephone Encounter - Zeinab Wood MD - 04/13/2023 3:08 PM EDT The following approved medication requests have been transmitted electronically. Requested Prescriptions Pending Prescriptions Disp Refills hydrOXYchloroQUINE (PLAQUENIL) 200 mg tablet [Pharmacy Med Name: hydroxychloroquine 200 mg tablet] 60 tablet 6 Sig: TAKE 1 TABLET BY MOUTH TWICE DAILY Zeinab Wood MD * Telephone Encounter - Tory Thomas LPN - 04/13/2023 10:58 AM EDT Scan on 07/15/2022 1:08 PM by Provider, External, PAMackC: Consultation - Ophthalmology Most recent Rheumatology visit: 09/29/2022 (with Zeinab Wood) Recent Office Visits - This Specialty 09/29/2022 Inflammatory arthritis Rheumatology Zeinab Wood MD 01/20/2022 Inflammatory arthritis Rheumatology Zeinab Wood MD 07/04/2021 Pain in joint, multiple sites Rheumatology Zeinab Wood MD Upcoming Rheumatology Appointments - Next 365 Days Visit Type Date Time Department [facility] 09/28/2023 3:00 PM [facility] Last Ophthalmology Check for Plaquenil (Hydroxychloroquine) [...] Instance) Lab Orders None documented in this encounterHenry County Hospital07-18-2023 Evaluation note* Encounter Date Diagnosis Assessment Notes Treatment Notes Treatment Clinical Notes Mar, Nausea & vomiting (ICD-10 - R11.2) Mar, Gastroparesis due to secondary diabetes (ICD-10 - E13.43) Mar, Bloating (ICD-10 - R14.0) Mar, Belching (ICD-10 - R14.2) Mar, Overflow diarrhea (ICD-10 - R19.7) Mar, Constipation (ICD-10 - K59.00) Continue amitiza 24 mcg twice a day Continue senokot 2 tablets daily Pt to do bowel prep today-miralax f/u with Alexsander in 3 weeks Mar, Other Obtain labs fro m Dr. Gonzalez regarding diabetes [facility] Other 06-26-2023 Miscellaneous Notes* Telephone Encounter - Tory Thomas LPN - 03/09/2023 11:55 AM EDT Refill to soon refilled 01/19/2023 30 capsules with 3 refilles documented in this encounterHenry County Hospital05-08-2023 Miscellaneous Notes* Telephone Encounter - Zeinab [...] Days Visit Type Date Time Department [facility] 06/26/2023 10:40 AM [facility] Last Ophthalmology Check for Plaquenil (Hydroxychloroquine) Last JUN Macula Exam No resulted procedures found. Last [...] Instance) Lab Orders None documented in this encounterHenry County Hospital04-05-2023 Evaluation note* Encounter Date Diagnosis Assessment Notes Treatment Notes Treatment Clinical Notes Dec, Osteochondrosis of lunate of right wrist (ICD-10 - 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 May repeat ulnar wrist cortisone injection when needed. Patient instructed on the use of Voltaren Gel in the meantime Dec, Right wrist pain (ICD-10 - M25.531) Dec, Other specified postprocedural states (ICD-10 - Z98.890) [facility] Other 03-30-2023 Miscellaneous Notes* Addendum Note - [...] qd Zeinab Wood MD documented in this encounterHenry County Hospital01-16-2023 Miscellaneous Notes* Telephone Encounter - Zeinab [...] check out. Thank you. documented in this encounterHenry County Hospital01-16-2023 History of Present illness Narrative* Zeinab [...] No Swollen Glands: No documented in this encounterHenry County Hospital01-11-2023 Evaluation note* Encounter Date Diagnosis Assessment Notes Treatment Notes Treatment Clinical Notes Sep, Osteochondrosis of lunate of right wrist (ICD-10 - M92.211) Sep, Right wrist pain (ICD-10 - M25.531) Right ulnar wrist joint/TFCC injected with cortisone under sterile technique, patient tolerated well Sep, Other specified postprocedural states (ICD-10 - Z98.890) [facility] Other 11-22-2022 Evaluation note* Encounter Date Diagnosis Assessment Notes Treatment Notes Treatment Clinical Notes Jul, Osteochondrosis of lunate of right wrist (ICD-10 - 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 Decrease to 81 mg Aspirin once per day x 3 months then begin to wean off. Jul, Other specified postprocedural states (ICD-10 - Z98.890) [facility] Other 11-03-2022 Evaluation note* Encounter Date Diagnosis [...] pain of right shoulder (ICD-10 - M25.511) [facility] Other 10-12-2022 Evaluation note* Encounter Date Diagnosis [...] pain of left shoulder (ICD-10 - M25.512) [facility] Other 07-18-2022 Evaluation note* Encounter Date Diagnosis [...] pain of right shoulder (ICD-10 - M25.511) [facility] Other 05-16-2022 Evaluation note* Encounter Date Diagnosis [...] will order an MRI for futher review. [facility] Other 05-13-2022 Evaluation note* Encounter Date Diagnosis Assessment Notes Treatment Notes Treatment Clinical Notes January, Osteochondrosis of lunate of right wrist (ICD-10 - M92.211) January, Right wrist pain (ICD-10 - M25.531) Right ulnar wrist injected with cortisone under sterile technique, patient tolerated well January, Other specified postprocedural states (ICD-10 - Z98.890) [facility] Other 05-09-2022 Evaluation note* Encounter Date Diagnosis [...] oral prednisone as prescribed by Neha ANDERSON. [facility] Other 05-09-2022 History of Present illness Narrative* [...] -none Zeinab Wood MD documented in this encounterHenry County Hospital04-12-2022 Evaluation note* Encounter Date Diagnosis Assessment [...] Other specified postprocedural states (ICD-10 - Z98.890) [facility] Other 03-21-2022 Evaluation note* Encounter Date Diagnosis [...] pain of right shoulder (ICD-10 - M25.511) [facility] Other 03-09-2022 Evaluation note* Encounter Date Diagnosis Assessment Notes Treatment Notes Treatment Clinical Notes Nov, Osteochondrosis of lunate of right wrist (ICD-10 - M92.211) Patient instructed on gentle ROM exercises. Continue Aspirin. Prescription given for edema glove Nov, Other specified postprocedural states (ICD-10 - Z98.890) [facility] Other 01-25-2022 Evaluation note* Encounter Date Diagnosis Assessment Notes Treatment Notes Treatment Clinical Notes Sep, Osteochondrosis of lunate of right wrist (ICD-10 - M92.211) Patient will proceed with surgery on the right wrist. Risks and benefits of procedure explained to patient; patient verbalizes understanding. [facility] Other 12-15-2021 Evaluation note* Encounter Date Diagnosis Assessment Notes Treatment Notes Treatment Clinical Notes Aug, Osteochondrosis of lunate of right wrist (ICD-10 - M92.211) Right wrist injected with cortisone under sterile technique, patient tolerated well. Patient would like to proceed with surgical treatment in October [facility] Other 11-29-2021 Evaluation note* Encounter Date Diagnosis Assessment Notes Treatment Notes Treatment Clinical Notes Jul, Carpal tunnel syndrome of right wrist (ICD-10 - G56.01) [facility] Other 10-05-2021 Evaluation note* Encounter Date Diagnosis [...] brace as needed for pain and support [facility] Other 09-22-2021 Evaluation note* Encounter Date Diagnosis [...] of right supraspinatus tendon (ICD-10 - M75.101) [facility] Other 06-21-2021 NoteHNO ID: [id number] Author: Hu Blankenship Service: Radiology Author Type: Manganese Wheeler Type: Progress Notes Filed: 03/04/2021 1:11 PM [...] BY: Hu Blankenship March 04, 2021 1:10 [facility] note* Clinical Note Date No Information [facility] Work Phone: Discharge summary* Clinical Note Date No Information [facility] Work Phone: Evaluation note* Diagnosis Inflammatory arthritis- Primary Unspecified inflammatory polyarthropathy Myalgia Mylagia and myositis, unspecified documented in this encounter [facility]No [facility] Other Evaluation noteNo assessment information [facility] Work Phone: Evaluation note* Diagnosis Inflammatory arthritis- Primary Unspecified inflammatory polyarthropathy Myalgia Mylagia and myositis, unspecified Fibromyalgia Mylagia and myositis, unspecified documented in this encounter [facility]* Diagnosis Medication overuse headache- Primary Drug induced headache, not elsewhere classified Brain mass Unspecified condition of brain Meningioma (HCC) Benign neoplasm of cerebral meninges Chronic daily headache Headache documented in this encounter [facility] [place] [facility]* Diagnosis Intracranial meningioma (HCC)- Primary Benign neoplasm of cerebral meninges [facility] [place] [facility]* Diagnosis Onset Date Resolution Status Osteochondrosis of lunate of right wrist acute Right wrist pain acute [facility] Work Phone: Evaluation note* Diagnosis 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) Benign neoplasm of cerebral meninges [facility] [place] [facility]* Diagnosis Benign neoplasm of meninges (HCC) Benign neoplasm of cerebral meninges documented in this encounter [facility] [place] [facility]* Diagnosis Chronic daily headache Headache documented in this encounter [facility] [place] [facility]* Diagnosis Intracranial meningioma (HCC)- Primary Benign neoplasm of cerebral meninges [facility] [place] [facility]* Diagnosis Meningioma (HCC)- Primary Benign neoplasm of cerebral meninges Chronic daily headache Headache Intracranial meningioma (HCC) Benign neoplasm of cerebral meninges Preop testing Preoperative examination, unspecified documented [facility] [place] [facility]* Diagnosis Onset Date Resolution Status Osteochondrosis of lunate of right wrist acute Right wrist pain acute Acute pain of right shoulder acute Biceps tendonitis acute [facility] Work Phone: Evaluation note* Diagnosis Onset Date Resolution Status Acute pain of right shoulder acute Biceps tendonitis acute Osteochondrosis of lunate of right wrist acute Right wrist pain acute [facility] Work Phone: Evaluation note* Diagnosis Inflammatory arthritis- Primary Unspecified inflammatory polyarthropathy Fibromyalgia Mylagia and myositis, unspecified Medication monitoring encounter Encounter for therapeutic drug monitoring documented in this encounter [facility] [place] [facility]* Diagnosis Tooth infection- Primary Acute apical periodontitis of pulpal origin [facility] [place] [facility] Diagnosis Inflammatory arthritis- Primary Unspecified inflammatory polyarthropathy documented [facility] [place] [facility]* Diagnosis Onset Date Resolution Status Admit Date Osteochondrosis of lunate of right wrist acute September 27 2:48pm Right wrist pain acute September 27, 2024 2:48pm [facility] Work Phone: Evaluation note* Diagnosis Encounter for medication monitoring- Primary Encounter for therapeutic drug monitoring documented in this encounter [facility] note* Diagnosis Fibromyalgia Mylagia and myositis, unspecified documented in this [facility] note* Diagnosis Inflammatory arthritis- Primary Unspecified inflammatory polyarthropathy Fibromyalgia Mylagia and myositis, unspecified Encounter for medication monitoring Encounter for therapeutic drug monitoring documented in this encounter [facility] note* Diagnosis Chronic daily headache Headache documented in this [facility] note* Diagnosis Chronic daily headache Headache Intracranial meningioma (HCC) Benign neoplasm of cerebral meninges Preop testing Preoperative examination, unspecified documented in [facility]* Diagnosis Pre-op evaluation- Primary Preoperative examination, unspecified Anxiety Anxiety state, unspecified Chronic obstructive pulmonary disease, unspecified COPD type (HCC) Depression, unspecified depression type Type 2 diabetes mellitus without complication, without long-term current use of insulin (HCC) Mixed hyperlipidemia Fibromyalgia Mylagia and myositis, unspecified Intracranial meningioma (HCC) Benign neoplasm of cerebral meninges Preop testing Preoperative examination, unspecified MAREK (obstructive sleep apnea) Obstructive sleep apnea (adult) (pediatric) Gastroesophageal reflux disease, unspecified whether esophagitis present Hypothyroidism, unspecified type Class 3 severe obesity due to excess calories with serious comorbidity and body mass index (BMI) of 40.0 to 44.9 in adult Inflammatory arthritis Unspecified inflammatory polyarthropathy Intracranial meningioma (HCC)- Primary Benign neoplasm of cerebral meninges Intracranial meningioma (HCC) Benign neoplasm of cerebral meninges Preop testing Preoperative examination, unspecified documented in this [facility] note* Diagnosis Pre-op evaluation- Primary Preoperative examination, unspecified Anxiety Anxiety state, unspecified Chronic obstructive pulmonary disease, unspecified COPD type (HCC) Depression, unspecified depression type Type 2 diabetes mellitus without complication, without long-term current use of insulin (HCC) Mixed hyperlipidemia Fibromyalgia Mylagia and myositis, unspecified Intracranial meningioma (HCC) Benign neoplasm of cerebral meninges Preop testing Preoperative examination, unspecified MAREK (obstructive sleep apnea) Obstructive sleep apnea (adult) (pediatric) Gastroesophageal reflux disease, unspecified whether esophagitis present Hypothyroidism, unspecified type Class 3 severe obesity due to excess calories with serious comorbidity and body mass index (BMI) of 40.0 to 44.9 in adult Inflammatory arthritis Unspecified inflammatory polyarthropathy Intracranial meningioma (HCC) Benign neoplasm of cerebral meninges Preop testing Preoperative examination, unspecified Intracranial meningioma (HCC) Benign neoplasm of cerebral meninges Preop testing Preoperative examination, unspecified [facility] Diagnosis Pre-op evaluation- Primary Preoperative examination, unspecified Anxiety Anxiety state, unspecified Chronic obstructive pulmonary disease, unspecified COPD type (HCC) Depression, unspecified depression type Type 2 diabetes mellitus without complication, without long-term current use of insulin (HCC) Mixed hyperlipidemia Fibromyalgia Mylagia and myositis, unspecified Intracranial meningioma (HCC) Benign neoplasm of cerebral meninges Preop testing Preoperative examination, unspecified MAREK (obstructive sleep apnea) Obstructive sleep apnea (adult) (pediatric) Gastroesophageal reflux disease, unspecified whether esophagitis present Hypothyroidism, unspecified type Class 3 severe obesity due to excess calories with serious comorbidity and body mass index (BMI) of 40.0 to 44.9 in adult Inflammatory arthritis Unspecified inflammatory polyarthropathy Intracranial meningioma (HCC) Benign neoplasm of cerebral meninges Preop testing Preoperative examination, unspecified * Assessment & Plan Note - Mehul Martin APRN.CNP - 02/14/2025 8:21 AM EDT Associated Problem(s): Inflammatory arthritis Assessment: Stable ON Plaquenil and prednisone as needed Follows with Dr. Villegas Rheumatology * Assessment & Plan Note - Mehul Martin APRN.CNP - 02/14/2025 8:19 AM EDT Associated Problem(s): Class 3 severe obesity due to excess calories with serious comorbidity and body mass index (BMI) of 40.0 to 44.9 in adult Assessment: Body mass index is 40.98 kg/m . * Assessment & Plan Note - Mehul Martin APRN.CNP - 02/14/2025 8:19 AM EDT Associated Problem(s): Anxiety Assessment: Controlled with Lamictal * Assessment & Plan Note - Mehul Martin APRN.CNP - 02/14/2025 8:18 AM EDT Associated Problem(s): Diabetes mellitus (HCC) Assessment: Complaint with oral medications -A1C ordered today Instructions provided to patient on how long to hold diabetic medications prior to procedure * Assessment & Plan Note - Mehul Martin APRN.CNP - 02/14/2025 8:03 AM EDT Associated Problem(s): Hypothyroidism Assessment: Controlled with levothyroxine * Assessment & Plan Note - Mehul Martin APRN.CNP - 02/14/2025 8:03 AM EDT Associated Problem(s): GERD (gastroesophageal reflux disease) Assessment: Controlled with dexilant * Assessment & Plan Note - Mehul Martin APRN.CNP - 02/14/2025 8:02 AM EDT Associated Problem(s): Mixed hyperlipidemia Assessment: Compliant with Statin * Assessment & Plan Note - Mehul Martin APRN.CNP - 02/14/2025 8:02 AM EDT Associated Problem(s): MAREK (obstructive sleep apnea) Assessment: Does not use CPAP * Assessment & Plan Note - Mehul Martin APRN.CNP - 02/14/2025 8:01 AM EDT Associated Problem(s): COPD (chronic obstructive pulmonary disease) (HCC) Assessment: Stable with nebulizer treatments Denies any SOB Denies any Home oxygen use Lungs clear on exam SpO2 in office today 96% Monitored by PCP * Assessment & Plan Note - Mehul Martin APRN.CNP - 02/14/2025 8:00 AM EDT Associated Problem(s): Fibromyalgia Assessment: Controlled with Cymbalta Monitored by [facility] rheumatology documented in this encounter [facility]* Diagnosis Meningioma (HCC)- Primary Benign neoplasm of cerebral meninges Intracranial meningioma (HCC) Benign neoplasm of cerebral meninges Preop testing Preoperative examination, unspecified Chronic daily headache Headache 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) COPD (chronic obstructive pulmonary disease) (HCC) Chronic airway obstruction, not elsewhere classified Diabetes mellitus (HCC) Type II or unspecified type diabetes mellitus without mention of complication, not stated as uncontrolled Fibromyalgia Mylagia and myositis, unspecified Mixed hyperlipidemia Hypothyroidism Unspecified hypothyroidism GERD (gastroesophageal reflux disease) Esophageal reflux MAREK (obstructive sleep apnea) Obstructive sleep apnea (adult) (pediatric) Anxiety Anxiety state, unspecified Class 3 severe obesity due to excess calories with serious comorbidity and body mass index (BMI) of 40.0 to 44.9 in adult (HCC) Cerebral edema (HCC) Cerebral edema At risk for seizures Other specified conditions influencing health status 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) Post-op pain Other acute postoperative pain Pre-op evaluation- Primary Preoperative examination, unspecified Anxiety Anxiety state, unspecified Chronic obstructive pulmonary disease, unspecified COPD type (HCC) Depression, unspecified depression type Type 2 diabetes mellitus without complication, without long-term current use of insulin (HCC) Mixed hyperlipidemia Fibromyalgia Mylagia and myositis, unspecified Intracranial meningioma (HCC) Benign neoplasm of cerebral meninges Preop testing Preoperative examination, unspecified MAREK (obstructive sleep apnea) Obstructive sleep apnea (adult) (pediatric) Gastroesophageal reflux disease, unspecified whether esophagitis present Hypothyroidism, unspecified type Class 3 severe obesity due to excess calories with serious comorbidity and body mass index (BMI) of 40.0 to 44.9 in adult (HCC) Inflammatory arthritis Unspecified inflammatory polyarthropathy Inflammatory arthritis Unspecified inflammatory polyarthropathy documented in this encounter [facility] [place] [facility]* Diagnosis Meningioma (HCC)- Primary Benign neoplasm of cerebral meninges Intracranial meningioma (HCC) Benign neoplasm of cerebral meninges Preop testing Preoperative examination, unspecified Chronic daily headache Headache 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) COPD (chronic obstructive pulmonary disease) ([facility]) Chronic airway obstruction, not elsewhere classified Diabetes mellitus ([facility]) Type II or unspecified type diabetes mellitus without mention of complication, not stated as uncontrolled Fibromyalgia Mylagia and myositis, unspecified Mixed hyperlipidemia Hypothyroidism Unspecified hypothyroidism GERD (gastroesophageal reflux disease) Esophageal reflux MAREK (obstructive sleep apnea) Obstructive sleep apnea (adult) (pediatric) Anxiety Anxiety state, unspecified Class 3 severe obesity due to excess calories with serious comorbidity and body mass index (BMI) of 40.0 to 44.9 in adult (HCC) Cerebral edema (HCC) Cerebral edema At risk for seizures Other specified conditions influencing health status 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) Post-op pain Other acute postoperative pain Pre-op evaluation- Primary Preoperative examination, unspecified Anxiety Anxiety state, unspecified Chronic obstructive pulmonary disease, unspecified COPD type (HCC) Depression, unspecified depression type Type 2 diabetes mellitus without complication, without long-term current use of insulin (HCC) Mixed hyperlipidemia Fibromyalgia Mylagia and myositis, unspecified Intracranial meningioma (HCC) Benign neoplasm of cerebral meninges Preop testing Preoperative examination, unspecified MAREK (obstructive sleep apnea) Obstructive sleep apnea (adult) (pediatric) Gastroesophageal reflux disease, unspecified whether esophagitis present Hypothyroidism, unspecified type Class 3 severe obesity due to excess calories with serious comorbidity and body mass index (BMI) of 40.0 to 44.9 in adult (HCC) Inflammatory arthritis Unspecified inflammatory polyarthropathy Benign neoplasm of meninges (HCC)- Primary Benign neoplasm of cerebral meninges [facility] [place] [facility] Diagnosis Meningioma (HCC)- Primary Benign neoplasm of cerebral meninges Intracranial meningioma (HCC) Benign neoplasm of cerebral meninges Preop testing Preoperative examination, unspecified Chronic daily headache Headache 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) COPD (chronic obstructive pulmonary disease) (HCC) Chronic airway obstruction, not elsewhere classified Diabetes mellitus (HCC) Type II or unspecified type diabetes mellitus without mention of complication, not stated as uncontrolled Fibromyalgia Mylagia and myositis, unspecified Mixed hyperlipidemia Hypothyroidism Unspecified hypothyroidism GERD (gastroesophageal reflux disease) Esophageal reflux MAREK (obstructive sleep apnea) Obstructive sleep apnea (adult) (pediatric) Anxiety Anxiety state, unspecified Class 3 severe obesity due to excess calories with serious comorbidity and body mass index (BMI) of 40.0 to 44.9 in adult (HCC) Cerebral edema (HCC) Cerebral edema At risk for seizures Other specified conditions influencing health status 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) Post-op pain Other acute postoperative pain Pre-op evaluation- Primary Preoperative examination, unspecified Anxiety Anxiety state, unspecified Chronic obstructive pulmonary disease, unspecified COPD type (HCC) Depression, unspecified depression type Type 2 diabetes mellitus without complication, without long-term current use of insulin (HCC) Mixed hyperlipidemia Fibromyalgia Mylagia and myositis, unspecified Intracranial meningioma (HCC) Benign neoplasm of cerebral meninges Preop testing Preoperative examination, unspecified MAREK (obstructive sleep apnea) Obstructive sleep apnea (adult) (pediatric) Gastroesophageal reflux disease, unspecified whether esophagitis present Hypothyroidism, unspecified type Class 3 severe obesity due to excess calories with serious comorbidity and body mass index (BMI) of 40.0 to 44.9 in adult (HCC) Inflammatory arthritis Unspecified inflammatory polyarthropathy Fibromyalgia Mylagia and myositis, unspecified [facility] Diagnosis Meningioma (HCC)- Primary Benign neoplasm of cerebral meninges Intracranial meningioma (HCC) Benign neoplasm of cerebral meninges Preop testing Preoperative examination, unspecified Chronic daily headache Headache 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) COPD (chronic obstructive pulmonary disease) (HCC) Chronic airway obstruction, not elsewhere classified Diabetes mellitus (HCC) Type II or unspecified type diabetes mellitus without mention of complication, not stated as uncontrolled Fibromyalgia Mylagia and myositis, unspecified Mixed hyperlipidemia Hypothyroidism Unspecified hypothyroidism GERD (gastroesophageal reflux disease) Esophageal reflux MAREK (obstructive sleep apnea) Obstructive sleep apnea (adult) (pediatric) Anxiety Anxiety state, unspecified Class 3 severe obesity due to excess calories with serious comorbidity and body mass index (BMI) of 40.0 to 44.9 in adult (HCC) Cerebral edema (HCC) Cerebral edema At risk for seizures Other specified conditions influencing health status 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) Post-op pain Other acute postoperative pain Pre-op evaluation- Primary Preoperative examination, unspecified Anxiety Anxiety state, unspecified Chronic obstructive pulmonary disease, unspecified COPD type (HCC) Depression, unspecified depression type Type 2 diabetes mellitus without complication, without long-term current use of insulin (HCC) Mixed hyperlipidemia Fibromyalgia Mylagia and myositis, unspecified Intracranial meningioma (HCC) Benign neoplasm of cerebral meninges Preop testing Preoperative examination, unspecified MAREK (obstructive sleep apnea) Obstructive sleep apnea (adult) (pediatric) Gastroesophageal reflux disease, unspecified whether esophagitis present Hypothyroidism, unspecified type Class 3 severe obesity due to excess calories with serious comorbidity and body mass index (BMI) of 40.0 to 44.9 in adult (HCC) Inflammatory arthritis Unspecified inflammatory polyarthropathy S/P craniotomy- Primary Other postprocedural status Intracranial meningioma (HCC) Benign neoplasm of cerebral meninges Postop check Follow-up examination, following unspecified surgery [facility] Diagnosis Meningioma (HCC)- Primary Benign neoplasm of cerebral meninges Intracranial meningioma (HCC) Benign neoplasm of cerebral meninges Preop testing Preoperative examination, unspecified Chronic daily headache Headache 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) COPD (chronic obstructive pulmonary disease) (HCC) Chronic airway obstruction, not elsewhere classified Diabetes mellitus (HCC) Type II or unspecified type diabetes mellitus without mention of complication, not stated as uncontrolled Fibromyalgia Mylagia and myositis, unspecified Mixed hyperlipidemia Hypothyroidism Unspecified hypothyroidism GERD (gastroesophageal reflux disease) Esophageal reflux MAREK (obstructive sleep apnea) Obstructive sleep apnea (adult) (pediatric) Anxiety Anxiety state, unspecified Class 3 severe obesity due to excess calories with serious comorbidity and body mass index (BMI) of 40.0 to 44.9 in adult (HCC) Cerebral edema (HCC) Cerebral edema At risk for seizures Other specified conditions influencing health status 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) Post-op pain Other acute postoperative pain Pre-op evaluation- Primary Preoperative examination, unspecified Anxiety Anxiety state, unspecified Chronic obstructive pulmonary disease, unspecified COPD type (HCC) Depression, unspecified depression type Type 2 diabetes mellitus without complication, without long-term current use of insulin (HCC) Mixed hyperlipidemia Fibromyalgia Mylagia and myositis, unspecified Intracranial meningioma (HCC) Benign neoplasm of cerebral meninges Preop testing Preoperative examination, unspecified MAREK (obstructive sleep apnea) Obstructive sleep apnea (adult) (pediatric) Gastroesophageal reflux disease, unspecified whether esophagitis present Hypothyroidism, unspecified type Class 3 severe obesity due to excess calories with serious comorbidity and body mass index (BMI) of 40.0 to 44.9 in adult (HCC) Inflammatory arthritis Unspecified inflammatory polyarthropathy Chronic daily headache Headache [facility] [place] [facility] Diagnosis Meningioma (HCC)- Primary Benign neoplasm of cerebral meninges Intracranial meningioma (HCC) Benign neoplasm of cerebral meninges Preop testing Preoperative examination, unspecified Chronic daily headache Headache 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) COPD (chronic obstructive pulmonary disease) ([facility]) Chronic airway obstruction, not elsewhere classified Diabetes mellitus ([facility]) Type II or unspecified type diabetes mellitus without mention of complication, not stated as uncontrolled Fibromyalgia Mylagia and myositis, unspecified Mixed hyperlipidemia Hypothyroidism Unspecified hypothyroidism GERD (gastroesophageal reflux disease) Esophageal reflux MAREK (obstructive sleep apnea) Obstructive sleep apnea (adult) (pediatric) Anxiety Anxiety state, unspecified Class 3 severe obesity due to excess calories with serious comorbidity and body mass index (BMI) of 40.0 to 44.9 in adult (HCC) Cerebral edema (HCC) Cerebral edema At risk for seizures Other specified conditions influencing health status 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) Post-op pain Other acute postoperative pain Pre-op evaluation- Primary Preoperative examination, unspecified Anxiety Anxiety state, unspecified Chronic obstructive pulmonary disease, unspecified COPD type ([facility]) Depression, unspecified depression type Type 2 diabetes mellitus without complication, without long-term current use of insulin (HCC) Mixed hyperlipidemia Fibromyalgia Mylagia and myositis, unspecified Intracranial meningioma (HCC) Benign neoplasm of cerebral meninges Preop testing Preoperative examination, unspecified MAREK (obstructive sleep apnea) Obstructive sleep apnea (adult) (pediatric) Gastroesophageal reflux disease, unspecified whether esophagitis present Hypothyroidism, unspecified type Class 3 severe obesity due to excess calories with serious comorbidity and body mass index (BMI) of 40.0 to 44.9 in adult ([facility]) Inflammatory arthritis Unspecified inflammatory polyarthropathy S/P craniotomy- Primary Other postprocedural status [facility] [place] [facility]* Diagnosis Meningioma (HCC)- Primary Benign neoplasm of cerebral meninges Intracranial meningioma (HCC) Benign neoplasm of cerebral meninges Preop testing Preoperative examination, unspecified Chronic daily headache Headache 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) COPD (chronic obstructive pulmonary disease) (HCC) Chronic airway obstruction, not elsewhere classified Diabetes mellitus (HCC) Type II or unspecified type diabetes mellitus without mention of complication, not stated as uncontrolled Fibromyalgia Mylagia and myositis, unspecified Mixed hyperlipidemia Hypothyroidism Unspecified hypothyroidism GERD (gastroesophageal reflux disease) Esophageal reflux MAREK (obstructive sleep apnea) Obstructive sleep apnea (adult) (pediatric) Anxiety Anxiety state, unspecified Class 3 severe obesity due to excess calories with serious comorbidity and body mass index (BMI) of 40.0 to 44.9 in adult ([facility]) Pre-op evaluation- Primary Preoperative examination, unspecified Anxiety Anxiety state, unspecified Chronic obstructive pulmonary disease, unspecified COPD type (HCC) Depression, unspecified depression type Type 2 diabetes mellitus without complication, without long-term current use of insulin (HCC) Mixed hyperlipidemia Fibromyalgia Mylagia and myositis, unspecified Intracranial meningioma (HCC) Benign neoplasm of cerebral meninges Preop testing Preoperative examination, unspecified MAREK (obstructive sleep apnea) Obstructive sleep apnea (adult) (pediatric) Gastroesophageal reflux disease, unspecified whether esophagitis present Hypothyroidism, unspecified type Class 3 severe obesity due to excess calories with serious comorbidity and body mass index (BMI) of 40.0 to 44.9 in adult ([facility]) Inflammatory arthritis Unspecified inflammatory polyarthropathy Intracranial meningioma (HCC)- Primary Benign neoplasm of cerebral meninges Postprocedural state Other postprocedural status Dizziness and giddiness [facility] Diagnosis Meningioma (HCC)- Primary Benign neoplasm of cerebral meninges Intracranial meningioma (HCC) Benign neoplasm of cerebral meninges Preop testing Preoperative examination, unspecified Chronic daily headache Headache 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) COPD (chronic obstructive pulmonary disease) (HCC) Chronic airway obstruction, not elsewhere classified Diabetes mellitus (HCC) Type II or unspecified type diabetes mellitus without mention of complication, not stated as uncontrolled Fibromyalgia Mylagia and myositis, unspecified Mixed hyperlipidemia Hypothyroidism Unspecified hypothyroidism GERD (gastroesophageal reflux disease) Esophageal reflux MAREK (obstructive sleep apnea) Obstructive sleep apnea (adult) (pediatric) Anxiety Anxiety state, unspecified Class 3 severe obesity due to excess calories with serious comorbidity and body mass index (BMI) of 40.0 to 44.9 in adult ([facility]) Pre-op evaluation- Primary Preoperative examination, unspecified Anxiety Anxiety state, unspecified Chronic obstructive pulmonary disease, unspecified COPD type ([facility]) Depression, unspecified depression type Type 2 diabetes mellitus without complication, without long-term current use of insulin ([facility]) Mixed hyperlipidemia Fibromyalgia Mylagia and myositis, unspecified Intracranial meningioma ([facility]) Benign neoplasm of cerebral meninges Preop testing Preoperative examination, unspecified MAREK (obstructive sleep apnea) Obstructive sleep apnea (adult) (pediatric) Gastroesophageal reflux disease, unspecified whether esophagitis present Hypothyroidism, unspecified type Class 3 severe obesity due to excess calories with serious comorbidity and body mass index (BMI) of 40.0 to 44.9 in adult ([facility]) Inflammatory arthritis Unspecified inflammatory polyarthropathy Meningioma ([facility])- Primary Benign neoplasm of cerebral meninges Chronic daily headache Headache [facility] Clinical Note Date No Information [facility] Work Phone: [employer] general Narrative - Reported* Type Description Date Medical History GERD Medical History gastroparesis Medical History bipolar Medical History DM II Surgical History carpal tunnel Surgical History cystectomy-left breast Surgical History right neuroplasty, ulnar nerve at elbow 08/2020 Hospitalization History see above Hospitalization History [employer] Other [employer] [facility] Narrative - Reported* Type Description Date Medical History GERD Medical History gastroparesis Medical History bipolar Medical History DM II Medical History COPD Surgical History carpal tunnel Surgical History cystectomy-left breast Surgical History right neuroplasty, ulnar nerve at elbow 08/2020 Surgical History appendectomy 09/2021 Hospitalization History see above Hospitalization History [employer] Other [facility] [facility] Narrative - Reported* Type Description Date Medical History GERD Medical History gastroparesis Medical History bipolar Medical History DM II Medical History COPD Surgical History carpal tunnel Surgical History cystectomy-left breast Surgical History right neuroplasty, ulnar nerve at elbow 08/2020 Surgical History appendectomy 09/2021 Surgical History right wrist PIN/core decompress ion Hospitalization History see above Hospitalization History [employer] Other [employer] general Narrative - Reported* Type Description Date Medical History GERD Medical History gastroparesis Medical History bipolar Medical History DM II Medical History COPD Surgical History carpal tunnel Surgical History cystectomy-left breast Surgical History right neuroplasty, ulnar nerve at elbow 08/2020 Surgical History appendectomy 09/2021 Surgical History right wrist PIN/core decompress ion Surgical History cubital tunnel Hospitalization History see above Hospitalization History COPD [employer] Other History of Past illness Narrative* Condition Effective Dates (start - stop) O utcome No Information [facility] Work Phone: History of Present illness Narrative* Encounter Date Complaint History Of Prese nt Illness No Information [facility] Work Phone: Instructions* Date Instruction Additional Infor mation No Information [facility] Work Phone: Progress note* Clinical Note Date No Information [facility] Work Phone: Reason for referral (narrative)No reason for referral information [facility] Work Phone: Reason for referral (narrative)* Reason For Referral No Information [facility] Work Phone: Reason for visit Narrative* MRI/CT (Routine) - Closed Specialty Diagnoses / Procedures Referred By Tati t Referred To Contact [facility] Diagnoses Intracranial meningioma (HCC) Preop testing Procedures MRI BRAIN WO/W IVCON MRI BRAIN BRAIN STEM W/O W/CONTRAST MATERIAL Erik Pineda MD [address] [place] [address] Phone: tel: fax: [facility] [place] [id number] Referral ID Status Reason Start Date Expiration Date V isits Requested Visits Authorized [id number] Closed Auto-Generate d Referral 02/10/2025 09/13/2025 1 1 [facility] Narrative - Reported* System Pos/Neg Findings No Information [facility] Work Phone: Summary Purpose Family History Relationship Condition Age at Onset Recorded Date/T [...] Hepatitis C virus infection Unknown father Unknown Family Member Type Diagnosis Age At Onset [...] epilepsy Problem (finding) Family history of Diabe taylor mellitus Father Problem (finding) Diabetes mellitus Brother Problem (finding) Irritable bowel syndrom e Mother Problem (finding) hypertension Mother Problem (finding) Alive and well Brother Problem (finding) hypertension Father Problem (finding) congestive heart failur e Problem (finding) Family history of strok e Father Problem (finding) hypertension Brother Problem (finding) asthma Brother Problem (finding) alcoholism Father Problem (finding) seizure disorder Advance Directives Advance Directive Response Recorded Date/ Time Advance Directives Yes December 09 2:20pm Advance Directive Response Recorded Date/ Time Advance Directives Yes December 09 1:20pm Directive Yes / No Effective Date File Name No Information Chief Complaint and Reason for Visit Chief [...] right wrist Right wrist pain Chief Complaint Admit Date Screening September 16, 2024 1: 01pm Chief Complaint Admit Date Screening September 16, 2024 1: 01pm m1.September 20, 2024 7: 06am Chief Complaint Admit Date Screening September 16, 2024 1: 01pm [email or web address] September 20, 2024 7: 06am 3 MONTHS September 27, 2024 2 :48pm Reason for Visit Admit Date Osteochondrosis of lunate of right wrist September 27, 2024 2:48pm Right wrist pain September 27, 2024 2 :48pm Chief Complaint Admit Date Screening September 16, 2024 1: 01pm [email or web address] September 20, 2024 7: 06am 3 MONTHS September 27, 2024 2 :48pm M25.512 - Pain in left shoulder November 03, 2024 8:26am [employer] SH[employer]ER PAIN NX November 03 9:12am Reason for Visit Admit Date Osteochondrosis of lunate of right wrist September 27, 2024 2:48pm Right wrist pain September 27, 2024 2 :48pm Bursitis of left shoulder November 03, 2024 9:12am Chief Complaint Admit Date Screening September 16, 2024 1: 01pm [email or web address] September 20, 2024 7: 06am 3 MONTHS September 27, 2024 2 :48pm M25.512 - Pain in left shoulder November 03, 2024 8:26am T[employer] LT SHOULDER PAIN NX November 03 9:12am d50.9 December 13, 2024 3:07 pm Chief Complaint Admit Date M25.512 - Pain in left shoulder November 03, 2024 8:26am T[employer] LT SHOULDER PAIN NX November 03 9:12am d50.9 December 13, 2024 3:07 pm 3 MONTHS December 27, 2024 12: 51pm M25.531 - Pain in right wrist December 1:00pm Reason for Visit Admit Date Bursitis of left shoulder November 03, 2024 9:12am Osteochondrosis of lunate of right wrist December 27, 2024 12:51pm Right wrist pain December 27, 2024 12: 51pm Chief Complaint Admit Date d50.9 December 13, 2024 3:07 pm 3 MONTHS December 27, 2024 12: 51pm M25.531 - Pain in right wrist December 1:00pm 4-6 weeks February 01, 2025 1:57p m N28.8 February 10, 2025 1:59p m Reason for Visit Admit Date Osteochondrosis of lunate of right wrist December 27, 2024 12:51pm Right wrist pain December 27, 2024 12: 51pm Osteochondrosis of lunate of right wrist February 01, 2025 1:57pm Right wrist pain May 21st, 2025 1:57p m Chief Complaint Admit Date 3 MONTHS December 27, 2024 12: 51pm M25.531 - Pain in right wrist December 1:00pm 4-6 weeks February 01, 2025 1:57p m N28.8 February 10, 2025 1:59p m 6-8 WEEKS March 22, 2025 3:55p m Reason for Visit Admit Date Osteochondrosis of lunate of right wrist December 27, 2024 12:51pm Right wrist pain December 27, 2024 12: 51pm Osteochondrosis of lunate of right wrist February 01, 2025 1:57pm Right wrist pain February 01, 2025 1:57p m Osteochondrosis of lunate of right wrist March 22, 2025 3:55pm Right wrist pain March 22, 2025 3:55p m Additional Source Comments INFORMATION SOURCE (unrecogn ized section and content) DATE CREATED AUTHOR 03/10/2018 [facility] DATE CREATED AUTHOR AUTHOR'S ORGANIZ ATION 03/05/2021 [facility] DATE CREATED AUTHOR AUTHOR'S ORGANIZ ATION 10/13/2022 [facility] DATE CREATED AUTHOR AUTHOR'S ORGANIZ ATION 02/01/2024 [facility] DATE CREATED AUTHOR AUTHOR'S ORGANIZ ATION 07/15/2024 [facility] DATE CREATED AUTHOR AUTHOR'S ORGANIZ ATION 02/21/2025 [facility] DATE CREATED AUTHOR AUTHOR'S ORGANIZ ATION 03/26/2025 [facility] DATE CREATED AUTHOR AUTHOR'S ORGANIZ ATION 04/13/2025 [facility] DATE CREATED AUTHOR AUTHOR'S ORGANIZ ATION 05/04/2025 [facility] Source Comments (unrecognize d section and content) In the event this informatio n is protected by the Federal Confidentiality of Alcohol and Drug Abuse Patient Records regulations: The Federal rules restrict any use of the information to criminally investigate or prosecute any alcohol or drug abuse patient.[facility] the event this information is protected by the Federal Confidentiality of Alcohol and Drug Abuse Patient Records regulations: The Federal rules restrict any use of the information to criminally investigate or prosecute any alcohol or drug abuse patient.[facility] the event this information is protected by the Federal Confidentiality of Alcohol and Drug Abuse Patient Records regulations: The Federal rules restrict any use of the information to criminally investigate or prosecute any alcohol or drug abuse patient.[facility] the event this information is protected by the Federal Confidentiality of Alcohol and Drug Abuse Patient Records regulations: The Federal rules restrict any use of the information to criminally investigate or prosecute any alcohol or drug abuse patient.[facility] the event this information is protected by the Federal Confidentiality of Alcohol and Drug Abuse Patient Records regulations: The Federal rules restrict any use of the information to criminally investigate or prosecute any alcohol or drug abuse patient.[facility] the event this information is protected by the Federal Confidentiality of Alcohol and Drug Abuse Patient Records regulations: The Federal rules restrict any use of the information to criminally investigate or prosecute any alcohol or drug abuse patient.[facility] the event this information is protected by the Federal Confidentiality of Alcohol and Drug Abuse Patient Records regulations: The Federal rules restrict any use of the information to criminally investigate or prosecute any alcohol or drug abuse patient.[facility] HospitalIn the event this information is protected by the Federal Confidentiality of Alcohol and Drug Abuse Patient Records regulations: The Federal rules restrict any use of the information to criminally investigate or prosecute any alcohol or drug abuse patient.[facility] HospitalIn the event this information is protected by the Federal Confidentiality of Alcohol and Drug Abuse Patient Records regulations: The Federal rules restrict any use of the information to criminally investigate or prosecute any alcohol or drug abuse patient.[facility] HospitalIn the event this information is protected by the Federal Confidentiality of Alcohol and Drug Abuse Patient Records regulations: The Federal rules restrict any use of the information to criminally investigate or prosecute any alcohol or drug abuse patient.[facility] HospitalIn the event this information is protected by the Federal Confidentiality of Alcohol and Drug Abuse Patient Records regulations: The Federal rules restrict any use of the information to criminally investigate or prosecute any alcohol or drug abuse patient.[facility] HospitalIn the event this information is protected by the Federal Confidentiality of Alcohol and Drug Abuse Patient Records regulations: The Federal rules restrict any use of the information to criminally investigate or prosecute any alcohol or drug abuse patient.[facility] HospitalIn the event this information is protected by the Federal Confidentiality of Alcohol and Drug Abuse Patient Records regulations: The Federal rules restrict any use of the information to criminally investigate or prosecute any alcohol or drug abuse patient.[facility] HospitalIn the event this information is protected by the Federal Confidentiality of Alcohol and Drug Abuse Patient Records regulations: The Federal rules restrict any use of the information to criminally investigate or prosecute any alcohol or drug abuse patient.[facility] HospitalIn the event this information is protected by the Federal Confidentiality of Alcohol and Drug Abuse Patient Records regulations: The Federal rules restrict any use of the information to criminally investigate or prosecute any alcohol or drug abuse patient.[facility] HospitalIn the event this information is protected by the Federal Confidentiality of Alcohol and Drug Abuse Patient Records regulations: The Federal rules restrict any use of the information to criminally investigate or prosecute any alcohol or drug abuse patient.[facility] HospitalIn the event this information is protected by the Federal Confidentiality of Alcohol and Drug Abuse Patient Records regulations: The Federal rules restrict any use of the information to criminally investigate or prosecute any alcohol or drug abuse patient.[facility] the event this information is protected by the Federal Confidentiality of Alcohol and Drug Abuse Patient Records regulations: The Federal rules restrict any use of the information to criminally investigate or prosecute any alcohol or drug abuse patient.[facility] HospitalIn the event this information is protected by the Federal Confidentiality of Alcohol and Drug Abuse Patient Records regulations: The Federal rules restrict any use of the information to criminally investigate or prosecute any alcohol or drug abuse patient.[facility] HospitalIn the event this information is protected [...] or prosecute any alcohol or drug abuse patient.[facility] HospitalIn the event this information is protected by the Federal Confidentiality of Alcohol and Drug Abuse Patient Records regulations: The Federal rules restrict any use of the information to criminally investigate or prosecute any alcohol or drug abuse patient.[facility] HospitalIn the event this information is protected by the Federal Confidentiality of Alcohol and Drug Abuse Patient Records regulations: The Federal rules restrict any use of the information to criminally investigate or prosecute any alcohol or drug abuse patient.[facility] HospitalIn the event this information is protected by the Federal Confidentiality of Alcohol and Drug Abuse Patient Records regulations: The Federal rules restrict any use of the information to criminally investigate or prosecute any alcohol or drug abuse patient.[facility] HospitalIn the event this information is protected by the Federal Confidentiality of Alcohol and Drug Abuse Patient Records regulations: The Federal rules restrict any use of the information to criminally investigate or prosecute any alcohol or drug abuse patient.[facility] HospitalIn the event this information is protected by the Federal Confidentiality of Alcohol and Drug Abuse Patient Records regulations: The Federal rules restrict any use of the information to criminally investigate or prosecute any alcohol or drug abuse patient.[facility] HospitalIn the event this information is protected by the Federal Confidentiality of Alcohol and Drug Abuse Patient Records regulations: The Federal rules restrict any use of the information to criminally investigate or prosecute any alcohol or drug abuse patient.[facility] HospitalIn the event this information is protected by the Federal Confidentiality of Alcohol and Drug Abuse Patient Records regulations: The Federal rules restrict any use of the information to criminally investigate or prosecute any alcohol or drug abuse patient.[facility] HospitalIn the event this information is protected by the Federal Confidentiality of Alcohol and Drug Abuse Patient Records regulations: The Federal rules restrict any use of the information to criminally investigate or prosecute any alcohol or drug abuse patient.[facility] HospitalIn the event this information is protected by the Federal Confidentiality of Alcohol and Drug Abuse Patient Records regulations: The Federal rules restrict any use of the information to criminally investigate or prosecute any alcohol or drug abuse patient.[facility] HospitalIn the event this information is protected by the Federal Confidentiality of Alcohol and Drug Abuse Patient Records regulations: The Federal rules restrict any use of the information to criminally investigate or prosecute any alcohol or drug abuse patient.[facility] HospitalIn the event this information is protected by the Federal Confidentiality of Alcohol and Drug Abuse Patient Records regulations: The Federal rules restrict any use of the information to criminally investigate or prosecute any alcohol or drug abuse patient.[facility] HospitalIn the event this information is protected by the Federal Confidentiality of Alcohol and Drug Abuse Patient Records regulations: The Federal rules restrict any use of the information to criminally investigate or prosecute any alcohol or drug abuse patient.[facility] HospitalIn the event this information is protected by the Federal Confidentiality of Alcohol and Drug Abuse Patient Records regulations: The Federal rules restrict any use of the information to criminally investigate or prosecute any alcohol or drug abuse patient.[facility] HospitalIn the event this information is protected by the Federal Confidentiality of Alcohol and Drug Abuse Patient Records regulations: The Federal rules restrict any use of the information to criminally investigate or prosecute any alcohol or drug abuse patient.[facility] HospitalIn the event this information is protected by the Federal Confidentiality of Alcohol and Drug Abuse Patient Records regulations: The Federal rules restrict any use of the information to criminally investigate or prosecute any alcohol or drug abuse patient.[facility] HospitalIn the event this information is protected by the Federal Confidentiality of Alcohol and Drug Abuse Patient Records regulations: The Federal rules restrict any use of the information to criminally investigate or prosecute any alcohol or drug abuse patient.[facility] HospitalIn the event this information is protected by the Federal Confidentiality of Alcohol and Drug Abuse Patient Records regulations: The Federal rules restrict any use of the information to criminally investigate or prosecute any alcohol or drug abuse patient.[facility] HospitalIn the event this information is protected by the Federal Confidentiality of Alcohol and Drug Abuse Patient Records regulations: The Federal rules restrict any use of the information to criminally investigate or prosecute any alcohol or drug abuse patient.[facility] HospitalIn the event this information is protected by the Federal Confidentiality of Alcohol and Drug Abuse Patient Records regulations: The Federal rules restrict any use of the information to criminally investigate or prosecute any alcohol or drug abuse patient.[facility] HospitalIn the event this information is protected by the Federal Confidentiality of Alcohol and Drug Abuse Patient Records regulations: The Federal rules restrict any use of the information to criminally investigate or prosecute any alcohol or drug abuse patient.[facility] HospitalIn the event this information is protected by the Federal Confidentiality of Alcohol and Drug Abuse Patient Records regulations: The Federal rules restrict any use of the information to criminally investigate or prosecute any alcohol or drug abuse patient.[facility] HospitalIn the event this information is protected by the Federal Confidentiality of Alcohol and Drug Abuse Patient Records regulations: The Federal rules restrict any use of the information to criminally investigate or prosecute any alcohol or drug abuse patient.[facility] HospitalIn the event this information is protected by the Federal Confidentiality of Alcohol and Drug Abuse Patient Records regulations: The Federal rules restrict any use of the information to criminally investigate or prosecute any alcohol or drug abuse patient.[facility] HospitalIn the event this information is protected by the Federal Confidentiality of Alcohol and Drug Abuse Patient Records regulations: The Federal rules restrict any use of the information to criminally investigate or prosecute any alcohol or drug abuse patient.[facility] HospitalIn the event this information is protected by the Federal Confidentiality of Alcohol and Drug Abuse Patient Records regulations: The Federal rules restrict any use of the information to criminally investigate or prosecute any alcohol or drug abuse patient.[facility] HospitalIn the event this information is protected by the Federal Confidentiality of Alcohol and Drug Abuse Patient Records regulations: The Federal rules restrict any use of the information to criminally investigate or prosecute any alcohol or drug abuse patient.[facility] HospitalIn the event this information is protected by the Federal Confidentiality of Alcohol and Drug Abuse Patient Records regulations: The Federal rules restrict any use of the information to criminally investigate or prosecute any alcohol or drug abuse patient.[facility] HospitalIn the event this information is protected by the Federal Confidentiality of Alcohol and Drug Abuse Patient Records regulations: The Federal rules restrict any use of the information to criminally investigate or prosecute any alcohol or drug abuse patient.[facility] HospitalIn the event this information is protected by the Federal Confidentiality of Alcohol and Drug Abuse Patient Records regulations: The Federal rules restrict any use of the information to criminally investigate or prosecute any alcohol or drug abuse patient.[facility] HospitalIn the event this information is protected by the Federal Confidentiality of Alcohol and Drug Abuse Patient Records regulations: The Federal rules restrict any use of the information to criminally investigate or prosecute any alcohol or drug abuse patient.[facility] HospitalIn the event this information is protected by the Federal Confidentiality of Alcohol and Drug Abuse Patient Records regulations: The Federal rules restrict any use of the information to criminally investigate or prosecute any alcohol or drug abuse patient.[facility] HospitalIn the event this information is protected by the Federal Confidentiality of Alcohol and Drug Abuse Patient Records regulations: The Federal rules restrict any use of the information to criminally investigate or prosecute any alcohol or drug abuse patient.[facility] HospitalIn the event this information is protected by the Federal Confidentiality of Alcohol and Drug Abuse Patient Records regulations: The Federal rules restrict any use of the information to criminally investigate or prosecute any alcohol or drug abuse patient.[facility] HospitalIn the event this information is protected by the Federal Confidentiality of Alcohol and Drug Abuse Patient Records regulations: The Federal rules restrict any use of the information to criminally investigate or prosecute any alcohol or drug abuse patient.[facility] HospitalIn the event this information is protected by the Federal Confidentiality of Alcohol and Drug Abuse Patient Records regulations: The Federal rules restrict any use of the information to criminally investigate or prosecute any alcohol or drug abuse patient.[facility] HospitalIn the event this information is protected by the Federal Confidentiality of Alcohol and Drug Abuse Patient Records regulations: The Federal rules restrict any use of the information to criminally investigate or prosecute any alcohol or drug abuse patient.[facility] HospitalIn the event this information is protected by the Federal Confidentiality of Alcohol and Drug Abuse Patient Records regulations: The Federal rules restrict any use of the information to criminally investigate or prosecute any alcohol or drug abuse patient.[facility] HospitalIn the event this information is protected by the Federal Confidentiality of Alcohol and Drug Abuse Patient Records regulations: The Federal rules restrict any use of the information to criminally investigate or prosecute any alcohol or drug abuse patient.[facility] HospitalIn the event this information is protected by the Federal Confidentiality of Alcohol and Drug Abuse Patient Records regulations: The Federal rules restrict any use of the information to criminally investigate or prosecute any alcohol or drug abuse patient.[facility] HospitalIn the event this information is protected by the Federal Confidentiality of Alcohol and Drug Abuse Patient Records regulations: The Federal rules restrict any use of the information to criminally investigate or prosecute any alcohol or drug abuse patient.[facility] HospitalIn the event this information is protected by the Federal Confidentiality of Alcohol and Drug Abuse Patient Records regulations: The Federal rules restrict any use of the information to criminally investigate or prosecute any alcohol or drug abuse patient.[facility] HospitalIn the event this information is protected by the Federal Confidentiality of Alcohol and Drug Abuse Patient Records regulations: The Federal rules restrict any use of the information to criminally investigate or prosecute any alcohol or drug abuse patient.[facility] HospitalIn the event this information is protected by the Federal Confidentiality of Alcohol and Drug Abuse Patient Records regulations: The Federal rules restrict any use of the information to criminally investigate or prosecute any alcohol or drug abuse patient.[facility] HospitalIn the event this information is protected by the Federal Confidentiality of Alcohol and Drug Abuse Patient Records regulations: The Federal rules restrict any use of the information to criminally investigate or prosecute any alcohol or drug abuse patient.[facility] HospitalIn the event this information is protected by the Federal Confidentiality of Alcohol and Drug Abuse Patient Records regulations: The Federal rules restrict any use of the information to criminally investigate or prosecute any alcohol or drug abuse patient.[facility] Reason for Visit (unrecogniz ed section [...] CLINIC OFFICE/OUTPATIENT NEW HIGH MDM 60-74 MINUTES Laron Lou DO, PhD [address] [facility] [address] [place] [id number] Referral ID Status Reason Start Date Expiration Date V isits Requested Visits Authorized [id number] Closed PCP Requested Referral 06/01/2023 05/31/2024 1 [...] CT GUIDANCE STEREOTACTIC LOCALIZATION Erik Pineda MD [address] [place] [address] Ct Imaging [place] [address] Referral ID Status Reason Start Date Expiration Date V isits Requested Visits Authorized [id number] Closed Auto-Generate d Referral 01/19/2024 02/17/2025 1 1 Specialty Diagnoses / Procedures [facility]erred To Contact MR IMAGING Diagnoses Benign neoplasm of meninges (HCC) Procedures MRI SKULL BASE WO/W IVCON MRI BRAIN BRAIN STEM W/O W/CONTRAST MATERIAL Erik Pineda [facility] [address] [facility] [place] [address] Mr [facility] [place] [address] Referral ID Status Reason Start Date Expiration Date V isits Requested Visits Authorized [id number] Closed Auto-Generate d Referral 01/19/2024 02/17/2025 1 1 Reason Comments Appointment Reason Comments Established Patient Pre op consent Reason Comments Daily Headache Reason Comments epidural steroid injection Reason Comments Insurance Authorization Aurelio PA - Medicare / [employer]. Reason Onset Date Comments Refill Request 05/25/2024 Reason Comments Joint Pain Reason Comments Results Reason Onset Date Comments Refill Request 08/28/2024 Reason Comments Results Lab results from [facility] Reason Comments Edging Machine Feeder - Other Lab order probl em Reason Onset Date Comments Refill Request 10/10/2024 Reason Comments Care Coordination MyChart Follow up - Surgery Planning Reason Comments Med Change Request Reason Comments Established Patient Reason Comments PreOp Call Reason Comments Surgical Followup Reason Comments Patient Update Reason Comments Anesthesia Consult Specialty Diagnoses / Procedures Referred By Contac t Referred To Contact Diagnoses Intracranial meningioma (HCC) Preop testing Procedures REFER TO [facility] - PREOPERATIVE OPTIMIZATION OFFICE/OUTPATIENT [facility] 60 MINUTES Erik Pineda MD [address] [place] [address] Phone: tel: fax: Referral ID Status Reason Start Date Expiration Date V isits Requested Visits Authorized [id number] Closed PCP Requested Referral 01/13/2025 01/13/2026 1 1 Reason Comments Established Patient Reason Comments Post Op Reason Onset Date Comments Refill Request 03/15/2025 Reason Onset Date Comments Refill Request 03/20/2025 Reason Comments Headache Care Teams (unrecognized sec tion and content) Team Status: Active Member Role Status David Gonzalez MD Primary Care Provider Active Team Status: Inactive Member Role Status David Gonzalez MD Primary Care Provider Active Russell Shields MD Attending Provider Active Team Status: Inactive Member Role Status Dates Sammie Gonzalez MD Primary Care Provider, Attending Pr ovider Active [employer] Relationship Specialty Start Date End Date Sammie Gonzalez MD [address] [place] [address] Referring Family Practice 01/14/21 Team Status: Inactive Member Role Status David Gonzalez MD Primary Care Provider Active Elyssa Gomes MD Attending Provider Active Team Status: Inactive Member Role Status Dates Sammie Gonzalez MD Primary Care Provider Active Gunner Cummings DPM MS Attending Provider Active [employer] Relationship Specialty Start Date End Date Sammie Gonzalez MD [address] [place] [address] Referring Family Medicine 01/14/21 [employer] Relationship Specialty Start Date End Date Sammie Gonzalez MD [address] [place] [address] Referring Family Medicine 01/14/21 [employer] Relationship Specialty Start Date End Date Sammie Gonzalez MD Referring Family Medicine 01/14/21 [employer] Relationship Specialty Start Date End Date Sammie Gonzalez MD Referring Family Medicine 01/14/21 [employer] Relationship Specialty Start Date End Date Sammie Gonzalez MD Referring Family Medicine 01/14/21 [employer] Relationship Specialty Start Date End Date Sammie Gonzalez MD Referring Family Medicine 01/14/21 [employer] Relationship Specialty Start Date End Date Sammie Gonzalez MD Referring Family Medicine 01/14/21 Team Status: Inactive Member Role Status Dates Sammie Gonzalez MD Primary Care Provider Active Zeinab Mckinney ([facility]) , FURNACE CHARGING MACHINE OPERATOR Attending Provider Active [employer] Relationship Specialty Start Date End Date Sammie Gonzalez MD [address] [place] [address] PCP - General Family Medicine 05/12/23 Sammie Gonzalez MD Referring Family Medicine 01/14/21 Sammie Gonzalez MD [address] [place] [address] Referring Family Medicine 05/12/23 [employer] Relationship Specialty Start Date End Date Sammie Gonzalez MD [address] [place] [facility] [place] [address] PCP - General Family Medicine 05/12/23 Sammie Gonzalez MD Referring Family Medicine 01/14/21 Sammie Gonzalez MD [address] [place] [facility] [place] [address] Referring Family Medicine 05/12/23 [employer] Relationship Specialty Start Date End Date Sammie Gonzalez MD [address] [place] [facility] [place] [address] PCP - General Family Medicine 05/12/23 Sammie Gonzalez MD Referring Family Medicine 01/14/21 Sammie Gonzalez MD [address] [place] [facility] [place] [address] Referring Family Medicine 05/12/23 [employer] Relationship Specialty Start Date End Date Sammie Gonzalez MD [address] [place] [facility] [place] [address] PCP - General Family Medicine 05/12/23 Sammie Gonzalez MD Referring Family Medicine 01/14/21 Sammie Gonzalez MD [address] [place] [facility] [place] [address] Referring Family Medicine 05/12/23 [employer] Relationship Specialty Start Date End Date Sammie Gonzalez MD [address] [place] [facility] [address] PCP - General Family Medicine 05/12/23 Sammie Gonzalez MD Referring Family Medicine 01/14/21 Sammie Gonzalez MD [address] [place] [facility] [place] [address] Referring Family Medicine 05/12/23 [employer] Relationship Specialty Start Date End Date Sammie Gonzalez MD [address] [facility] [place] [address] PCP - General Family Medicine 05/12/23 Sammie Gonzalez MD Referring Family Medicine 01/14/21 Sammie Gonzalez MD [address] [facility] [place] [address] Referring Family Medicine 05/12/23 [employer] Relationship Specialty Start Date End Date Sammie Gonzalez MD [address] [facility] [place] [address] PCP - General Family Medicine 05/12/23 Sammie Gonzalez MD Referring Family Medicine 01/14/21 Sammie Gonzalez MD [address] [facility] [place] [address] Referring Family Medicine 05/12/23 [employer] Relationship Specialty Start Date End Date Sammie Gonzalez MD [address] [facility] [place] [address] PCP - General Family Medicine 05/12/23 Sammie Gonzalez MD Referring Family Medicine 01/14/21 Sammie Gonzalez MD [address] [facility] [place] [address] Referring Family Medicine 05/12/23 [employer] Relationship Specialty Start Date End Date Sammie Gonzalez MD [address] [facility] [place] [address] PCP - General Family Medicine 05/12/23 Sammie Gonzalez MD Referring Family Medicine 01/14/21 Sammie Gonzalez MD [address] [facility] [place] [address] Referring Family Medicine 05/12/23 Team Status: Inactive [...] January 08, 2024 End: January 08, 2024 [employer] Relationship Specialty Start Date End Date Sammie Gonzalez MD [address] [place] [address] PCP - General Family Medicine 05/12/23 Sammie Gonzalez MD Referring Family Medicine 01/14/21 Sammie Gonzalez MD [address] [place] [address] Referring Family Medicine 05/12/23 [employer] Relationship Specialty Start Date End Date Sammie Gonzalez MD [address] [place] [address] PCP - General Family Medicine 05/12/23 Sammie Gonzalez MD Referring Family Medicine 01/14/21 Sammie Gonzalez MD [address] [place] [address] Referring Family Medicine 05/12/23 [employer] Relationship Specialty Start Date End Date Sammie Gonzalez MD [address] [place] [address] PCP - General Family Medicine 05/12/23 Sammie Gonzalez MD Referring Family Medicine 01/14/21 Sammie Gonzalez MD [address] [place] [address] Referring Family Medicine 05/12/23 Team Status: Inactive Member Role Status Dates Sammie Gonzalez MD Primary Care Provider Active Start: January 26, 2024 End: January 26, 2024 Beti Bowles , PANDA-C Attending Provider Active Start: January 26, 2024 [...] March 04, 2024 End: March 04, 2024 [employer] Relationship Specialty Start Date End Date Sammie Gonzalez MD [address] [place] [place] [id number] PCP - General Family Medicine 05/12/23 Sammie Gonzalez MD Referring Family Medicine 01/14/21 Sammie Gonzlaez MD [address] [place] [address] Referring Family Medicine 05/12/23 [employer] Relationship Specialty Start Date End Date Sammie Gonzalez MD [address] [place] [id number] PCP - General Family Medicine 05/12/23 Sammie Gonzalez MD Referring Family Medicine 01/14/21 Sammie Gonzalez MD [address] [place] [address] Referring Family Medicine 05/12/23 [employer] Relationship Specialty Start Date End Date Sammie Gonzalez MD [address] [facility] [place] [address] PCP - General Family Medicine 05/12/23 Sammie Gonzalez MD Referring Family Medicine 01/14/21 Sammie Gonzalez MD [address] [facility] [place] [address] Referring Family Medicine 05/12/23 Team Status: Inactive Member Role Status Dates Sammie Gonzalez MD Primary Care Provide r, Attending Provider Active Start: May 12, 2024 End: May 12, 2024 [employer] Relationship Specialty Start Date End Date Sammie Gonzalez MD [address] [place] [address] PCP - General Family Medicine 05/12/23 Sammie Gonzalez MD Referring Family Medicine 01/14/21 Sammie Gonzalez MD [address] [facility] [place] [address] Referring Family Medicine 05/12/23 [employer] Relationship Specialty Start Date End Date Sammie Gonzalez MD [address] [facility] [place] [address] PCP - General Family Medicine 05/12/23 Sammie Gonzalez MD Referring Family Medicine 01/14/21 Sammie Gonzalez MD [address] [facility] [place] [address] Referring Family Medicine 05/12/23 Team Status: Inactive [...] June 22, 2024 End: June 22, 2024 [employer] Relationship Specialty Start Date End Date Sammie Gonzalez MD [address] [place] [address] PCP - General Family Medicine 03/12/23 [employer] Relationship Specialty Start Date End Date Sammie Gonzalez MD [address] [place] [address] PCP - General Family Medicine 05/12/23 Sammie Gonzalez MD Referring Family Medicine 01/14/21 Sammie Gonzalez MD [address] [place] [address] Referring Family Medicine 05/12/23 Team Status: Inactive Member Role Status Dates Sammie Gonzalez MD Primary Care Provider Active Start: September 16, 2024 End: September 16, 2024 Referral Self Attending Provider Active Start: J anuary 2024 End: September 16, 2024 Team Status: Inactive Member Role Status Dates Sammie Gonzalez MD Primary Care Provider Active Start: September 20, 2024 End: September 20, 2024 Zeinab Wood MD Attending Provider Active Star t: September 20, 2024 End: September 20, 2024 Team Status: Inactive Member Role Status Dates Sammie Gonzalez MD Primary Care Provider Active Start: September 27, 2024 End: September 27, 2024 Elyssa Gomes MD Attending Provider Active Start: September 27, 2024 End: September 27, 2024 [employer] Relationship Specialty Start Date End Date Sammie Gonzalez MD [address] [facility] [place] [address] PCP - General Family Medicine 05/12/23 Sammie Gonzalez MD Referring Family Medicine 01/14/21 Sammie Gonzalez MD [address] [facility] [place] [address] Referring Family Medicine 05/12/23 [employer] Relationship Specialty Start Date End Date Sammie Gonzalez MD [address] [facility] [place] [address] PCP - General Family Medicine 05/12/23 Sammie Gonzalez MD Referring Family Medicine 01/14/21 Sammie Gonzalez MD [address] [facility] [place] [address] Referring Family Medicine 05/12/23 Team Status: Active Member Role Status Dates Mk Broderick MD Attending Provider Active Star t: November 03, 2024 Sammie Gonzalez MD Primary Care Provider Active Start: November 03, 2024 Team Status: Inactive Member Role Status David Gonzalez MD Primary Care Provider Active Start: November 03, 2024 End: November 03, 2024 Mk Broderick MD Attending Provider Active Star t: November 03, 2024 End: November 03, 2024 Team Status: Inactive Member Role Status David Broderick MD Attending Provider Active Star t: November 03, 2024 End: November 03, 2024 Sammie Gonzalez MD Primary Care Provider Active Start: November 03, 2024 End: November 03, 2024 [employer] Relationship Specialty Start Date End Date Sammie Gonzalez MD [address] [place] [address] PCP - General Family Medicine 05/12/23 Sammie Gonzalez MD Referring Family Medicine 01/14/21 Sammie Gonzalez MD [address] [place] [address] Referring Family Medicine 05/12/23 Team Status: Inactive Member Role Status Dates Sammie Gonzalez MD Primary Care Provide r, Attending Provider Active Start: December 13, 2024 End: December 13, 2024 Team Status: Inactive Member Role Status Dates Sammie Gonzalez MD Primary Care Provider Active Start: December 27, 2024 End: December 27, 2024 Elyssa Gomes MD Attending Provider Active Start: December 27, 2024 End: December 27, 2024 Team Status: Active Member Role Status Dates Sammie Gonzalez MD Primary Care Provider Active Start: December 27, 2024 Elyssa Gomes MD Attending Provider Active Start: December 27, 2024 [employer] Relationship Specialty Start Date End Date Sammie Gonzalez MD [address] [place] [address] PCP - General Family Medicine 05/12/23 Sammie Gonzalez MD Referring Family Medicine 01/14/21 Sammie Gonzalez MD [address] [place] [address] Referring Family Medicine 05/12/23 Team Status: Inactive Member Role Status Dates Sammie Gonzalez MD Primary Care Provider Active Start: February 01, 2025 End: February 01, 2025 Elyssa Gomes MD Attending Provider Active Start: February 01, 2025 End: February 01, 2025 Team Status: Inactive Member Role Status Dates Sammie Gonzalez MD Primary Care Provide r, Attending Provider Active Start: February 10, 2025 End: February 10, 2025 [employer] Relationship Specialty Start Date End Date Sammie Gonzalez MD [address] [facility] [place] [address] PCP - General Family Medicine 05/12/23 Sammie Gonzalez MD Referring Family Medicine 01/14/21 Sammie Gonzalez MD [address] [facility] [place] [address] Referring Family Medicine 05/12/23 [employer] Relationship Specialty Start Date End Date Sammie Gonzalez MD [address] [facility] [place] [address] PCP - General Family Medicine 05/12/23 Sammie Gonzalez MD Referring Family Medicine 01/14/21 Sammie Gonzalez MD [address] [facility] [place] [address] Referring Family Medicine 05/12/23 [employer] Relationship Specialty Start Date End Date Sammie Gonzalez MD [address] [facility] [place] [address] PCP - General Family Medicine 05/12/23 Sammie Gonzalez MD Referring Family Medicine 01/14/21 Sammie Gonzalez MD [address] [facility] [place] [address] Referring Family Medicine 05/12/23 [employer] Relationship Specialty Start Date End Date Sammie Gonzalez MD [address] [facility] [place] [address] PCP - General Family Medicine 05/12/23 Sammie Gonzalez MD Referring Family Medicine 01/14/21 Sammie Gonzalez MD [address] [facility] [place] [address] Referring Family Medicine 05/12/23 [employer] Relationship Specialty Start Date End Date Sammie Gonazlez MD [address] [facility] [place] [address] PCP - General Family Medicine 05/12/23 Sammie Gonzalez MD Referring Family Medicine 01/14/21 Sammie Gonzalez MD [address] [facility] [place] [address] Referring Family Medicine 05/12/23 [employer] Relationship Specialty Start Date End Date Sammie Gonzalez MD [address] [facility] [place] [address] PCP - General Family Medicine 05/12/23 Sammie Gonzalez MD Referring Family Medicine 01/14/21 Sammie Gonzalez MD [address] [facility] [place] [address] Referring Family Medicine 05/12/23 [employer] Relationship Specialty Start Date End Date Sammie Gonzalez MD [address] [facility] [place] [address] PCP - General Family Medicine 05/12/23 Sammie Gonzalez MD Referring Family Medicine 01/14/21 Sammie Gonzalez MD [address] [facility] [place] [address] Referring Family Medicine 05/12/23 [employer] Relationship Specialty Start Date End Date Sammie Gonzalez MD [address] [place] [address] PCP - General Family Medicine 05/12/23 Sammie Gonzalez MD Referring Family Medicine 01/14/21 Sammie Gonzalez MD [address] [place] [address] Referring Family Medicine 05/12/23 [employer] Relationship Specialty Start Date End Date Sammie Gonzalez MD [address] [place] [address] PCP - General Family Medicine 05/12/23 Sammie Gonzalez MD Referring Family Medicine 01/14/21 Sammie Gonzalez MD [address] [place] [address] Referring Family Medicine 05/12/23 [employer] Relationship Specialty Start Date End Date Sammie Gonzalez MD [address] [facility] [place] [address] PCP - General Family Medicine 05/12/23 Sammie Gonzalez MD Referring Family Medicine 01/14/21 Sammie Gonzalez MD [address] [facility] [place] [address] Referring Family Medicine 05/12/23 [employer] Relationship Specialty Start Date End Date Sammie Gonzalez MD [address] [facility] [place] [address] PCP - General Family Medicine 05/12/23 Sammie Gonzalez MD Referring Family Medicine 01/14/21 Sammie Gonzalez MD [address] [facility] [place] [address] Referring Family Medicine 05/12/23 [employer] Relationship Specialty Start Date End Date Sammie Gonzalez MD [address] [facility] [place] [address] PCP - General Family Medicine 05/12/23 Sammie Gonzalez MD Referring Family Medicine 01/14/21 Sammie Gonzalez MD [address] [facility] [place] [address] Referring Family Medicine 05/12/23 [employer] Relationship Specialty Start Date End Date Sammie Gonzalez MD [address] [place] [address] PCP - General Family Medicine 05/12/23 Sammie Gonzalez MD Referring Family Medicine 01/14/21 Sammie Gonzalez MD [address] [place] [address] Referring Family Medicine 05/12/23 Team Status: Inactive Member Role Status Dates Sammie Gonzalez MD Primary Care Provider Active Start: February 10, 2025 End: February 10, 2025 Sammie Gonzalez MD Attending Provider Active Sta rt: February 10, 2025 End: February 10, 2025 Team Status: Inactive Member Role Status Dates Sammie Gonzalez MD Primary Care Provider Active Start: March 22, 2025 End: March 22, 2025 Elyssa Gomes MD Attending Provider Active Start: March 22, 2025 End: March 22, 2025 [employer] Relationship Specialty Start Date End Date Sammie Gonzalez MD [address] [place] [address] PCP - General Family Medicine 05/12/23 Sammie Gonzalez MD Referring Family Medicine 01/14/21 Sammie Gonzalez MD [address] [place] [address] Referring Family Medicine 05/12/23 Name Effective Dates (start - stop) Status Members No Information [employer] Relationship Specialty Start Date End Date Sammie Gonzalez MD [address] [place] [address] PCP - General Family Medicine 05/12/23 Sammie Gonzalez MD Referring Family Medicine 01/14/21 Sammie Gonzalez MD [address] [place] [address] Referring Family Medicine 05/12/23 [employer] Relationship Specialty Start Date End Date Sammie Gonzalez MD [address] [place] [address] PCP - General Family Medicine 05/12/23 Sammie Gonzalez MD Referring Family Medicine 01/14/21 Sammie Gonzalez MD [address] [place] [address] Referring Family Medicine 05/12/23 [employer] Relationship Specialty Start Date End Date Sammie Gonzalez MD [address] [place] [address] PCP - General Family Medicine 05/12/23 Sammie Gonzalez MD Referring Family Medicine 01/14/21 Sammie Gonzalez MD [address] [place] [address] Referring Family Medicine 05/12/23 Goals (unrecognized section and content) Goals [...] BE BASED ON THE PRIMARY CLINICAL RECORDS. [facility]. provides no warranty or guarantee of the accuracy or completeness of information in this document.
== END 2025-05-17 12:58 | disposition home or self-care (01) ==
LOC: PM 12:58
PROVIDERS: PCP Family Medicine; Visit Provider Nurse Practitioner
DX: M48.02 Spinal stenosis, cervical region (principal); M47.812 Spondylosis without myelopathy or radiculopathy, cervical region; M54.6 Pain in thoracic spine; M54.14 Radiculopathy, thoracic region
CPT/HCPCS: 72070; G0463

== ENCOUNTER 2025-05-17 13:47 | Outpatient (OUT) | payer MEDICARE, MEDICAID, SELFPAY ==
--- OUTSIDE RECORDS SUMMARY | 2025-05-17 13:53 | XMS_ITS | Encounter Summary ---
Author Organization [facility] Address [address] [place] [address] Care Team Providers Care Pearl Technician Name Role Phone Jesus Camacho MD Unavailable Jesus Camacho MD Unavailable Jesus Camacho MD Primary Care Provider [phone] Source Comments In the event this information is protected by the Federal Confidentiality of Alcohol and Drug AbusePatient Records regulations: The Federal rules restrict any use of the information to criminally investigate or prosecute any alcohol or drug abuse patient.[facility] Reason for Visit * Reason Comments Refill Request Encounter Details Date Type Department Care Team (Late st Contact Info) Description 10/08/2024 Refill Rheumatology [address] [place] [address] Zulema Mclean MD [address] [facility] [address] [place] [address] Refill Request Social History Tobacco [...] lower risk 8 06/01/2023 Data from: https://www.neighborhoodatlas.medicine.[facility]/. Last address used for calculation [address] [...] 06/22/2025 2:20 PM EDT Office Visit Rheumatology [address] [place] [address] Zulema Mclean MD [address] [address] [place] [address] 6 month follow up documented as of this encounter Visit Diagnoses Not on filedocumented in this encounter Care Teams Pearl Technician Relationship Specialty Start Date End Date Jesus Camacho MD [address] [place] [address] PCP - General Family Medicine 05/12/23 Jesus Camacho MD Referring Family Medicine 01/14/21 Jesus Camacho MD [address] [place] [id number] Referring Family Medicine 05/12/23 documented as of this encounter
--- OUTSIDE RECORDS SUMMARY | 2025-05-17 13:53 | XMS_ITS | Encounter Summary ---
Author Organization [facility] Address [address] [place] [address] Care Team Providers Care Denture Model Maker Name Role Phone Jesus Camacho MD Unavailable [phone] Jesus Camacho MD Unavailable [phone] Jesus Camacho MD Primary Care Provider [phone] Source Comments In the event this information is protected by the Federal Confidentiality of Alcohol and Drug AbusePatient Records regulations: The Federal rules restrict any use of the information to criminally investigate or prosecute any alcohol or drug abuse patient.[facility] Encounter Details Date Type Department Care Team (Late st Contact Info) Description 05/23/2024 Patient [facility] HB-[address] [place] [address] Sabina Carrillo RPh At your next appointment, choose [facility]. Social History Tobacco Use Types [...] is lower risk 8 06/01/2023 Data from: https://www.neighborhoodatlas.medicine.[facility]/. Last address used for [...] 06/22/2025 2:20 PM EDT Office Visit Rheumatology [address] [place] [address] Zulema Mclean MD [address] [facility] [address] [place] [address] 6 month follow up documented as of this encounter Visit Diagnoses Not on filedocumented in this encounter Care Teams Denture Model Maker Relationship Specialty Start Date End Date Jesus Camacho MD [address] [place] [address] PCP - General Family Medicine 05/12/23 Jesus Camacho MD Referring Family Medicine 01/14/21 Jesus Camacho MD [address] [place] [address] Referring Family Medicine 05/12/23 documented as of this encounter
--- OUTSIDE RECORDS SUMMARY | 2025-05-17 13:54 | XMS_ITS | Encounter Summary ---
Author Organization [facility] Address [address] [place] [address] Care Team Providers Care Fishing Accessories Maker Name Role Phone Jesus Camacho MD Unavailable [phone] Jesus Camacho MD Unavailable [phone] Jesus Camacho MD Primary Care Provider [phone] Source Comments In the event this information is protected by the Federal Confidentiality of Alcohol and Drug AbusePatient Records regulations: The Federal rules restrict any use of the information to criminally investigate or prosecute any alcohol or drug abuse patient.[facility] Encounter Details Date Type Department Care Team (Late st Contact Info) Description 03/20/2025 Get Medical Advice [facility] [address] [place] [phone] Jacky Pineda MD [address] [place] [address] Antibiotic Social History Tobacco Use [...] lower risk 8 06/01/2023 Data from: https://www.neighborhoodatlas.medicine.[facility]/. Last address used for calculation [address] [...] 06/22/2025 2:20 PM EDT Office Visit Rheumatology [address] [place] [address] Zulema Mclean MD [address] [place] [address] 6 month follow up documented as of this encounter Visit Diagnoses Not on filedocumented in this encounter Care Teams Fishing Accessories Maker Relationship Specialty Start Date End Date Jesus Camacho MD [address] [place] [address] PCP - General Family Medicine 05/12/23 Jesus Camacho MD Referring Family Medicine 01/14/21 Jesus Camacho MD [address] [place] [address] Referring Family Medicine 05/12/23 documented as of this encounter
--- OUTSIDE RECORDS SUMMARY | 2025-05-17 13:54 | XMS_ITS | Encounter Summary ---
Author Organization [facility] Address [facility] [place] [address] Care Team Providers Care Supervisor Beet End Name Role Phone Jesus Camacho MD Unavailable [phone] Jesus Camacho MD Unavailable [phone] Jesus Camacho MD Primary Care Provider [phone] Source Comments In the event this information is protected by the Federal Confidentiality of Alcohol and Drug AbusePatient Records regulations: The Federal rules restrict any use of the information to criminally investigate or prosecute any alcohol or drug abuse patient.[facility] Encounter Details Date Type Department Care Team (Late st Contact Info) Description 11/02/2022 Get Medical Advice Rheumatology [address] [place] [address] Zulema Mclean MD [address] [facility] [address] [place], [place] [id number] Fibromyalgia Social History Tobacco Use Types Packs/Day Years Used Date Smoking Tobacco: Former Smokeless Tobacco: Never PHQ-2 Answer Date Recorded PHQ-2 score 1 09/22/2022 Area Deprivation Index Answer Date Eliseo rded National Score (1-100), lower number is lower ri sk 90 09/29/2022 State Score (1-10), lower number is lower risk N ot on file 09/29/2022 Data from: https://www.neighborhoodatlas.medicine.[facility]/. Last address used for calculation [address] [...] 06/22/2025 2:20 PM EDT Office Visit Rheumatology [address] [place] [address] Zulema Mclean MD [address] [facility] [address] [place] [address] 6 month follow up documented as of this encounter Visit Diagnoses Not on filedocumented in this encounter Care Teams Supervisor Beet End Relationship Specialty Start Date End Date Jesus Camacho MD [address] [place] [address] PCP - General Family Medicine 05/12/23 Jesus Camacho MD Referring Family Medicine 01/14/21 Jesus Camacho MD [address] [place] [address] Referring Family Medicine 05/12/23 documented as of this encounter
--- OUTSIDE RECORDS SUMMARY | 2025-05-17 13:54 | XMS_ITS | Clinical Summary ---
Author Organization [facility] Address [address] [facility] [place] [address] Care Team Providers Care Abrasive Water Jet Cutter Operator Name Role Phone Unavailable Primary Care Provider Unavailabl e Source Comments The following information is NOT included in Care Everywhere downloads:Psychiatric notes, ECG results, Cardiac Rehab notes, Pulmonary Function notes, data from [employer] (includes but not limited toPregnancy data,audiograms, eye exams, pre-surgical evaluation notes, well-child exam data).[facility] Active Problems Problem Noted Date Diagnosed Date [...] patient's age to complete this topic Insurance [facility]
--- OUTSIDE RECORDS SUMMARY | 2025-05-17 13:54 | XMS_ITS | Encounter Summary ---
Author Organization [facility] Address [facility] [place] [address] Care Team Providers Care Mammography Technician Name Role Phone Jesus Camacho MD Unavailable [phone] Jesus Camacho MD Unavailable [phone] Jesus Camacho MD Primary Care Provider [phone] Source Comments In the event this information is protected by the Federal Confidentiality of Alcohol and Drug AbusePatient Records regulations: The Federal rules restrict any use of the information to criminally investigate or prosecute any alcohol or drug abuse patient.[facility] Encounter Details Date Type Department Care Team (Late st Contact Info) Description 01/06/2023 Get Medical Advice Rheumatology [address] [place] [address] Zulema Mclean MD [address] [facility] [address] [place], [place] [phone] Fibromyalgia update Social History Tobacco Use Types Packs/Day Years Used Date Smoking Tobacco: Former Smokeless Tobacco: Never PHQ-2 Answer Date Recorded PHQ-2 score 1 09/22/2022 Area Deprivation Index Answer Date Eliseo rded National Score (1-100), lower number is lower ri sk 90 09/29/2022 State Score (1-10), lower number is lower risk N ot on file 09/29/2022 Data from: https://www.neighborhoodatlas.medicine.[facility]/. Last address used for calculation [...] 06/22/2025 2:20 PM EDT Office Visit Rheumatology [address] [place] [address] Zulema Mclean MD [address] [facility] [address] [place] [address] 6 month follow up documented as of this encounter Visit Diagnoses Not on filedocumented in this encounter Care Teams Mammography Technician Relationship Specialty Start Date End Date Jesus Camacho MD [address] [place] [address] PCP - General Family Medicine 05/12/23 Jesus Camacho MD Referring Family Medicine 01/14/21 Jesus Camacho MD [address] [place] [address] Referring Family Medicine 05/12/23 documented as of this encounter
--- OUTSIDE RECORDS SUMMARY | 2025-05-17 13:54 | XMS_ITS | Encounter Summary ---
Author Organization [facility] Address [address] [place] [address] Care Team Providers Care Labor Service Representative Name Role Phone Jesus Camacho MD Unavailable [phone] Jesus Camacho MD Unavailable [phone] Jesus Camacho MD Primary Care Provider [phone] Source Comments In the event this information is protected by the Federal Confidentiality of Alcohol and Drug AbusePatient Records regulations: The Federal rules restrict any use of the information to criminally investigate or prosecute any alcohol or drug abuse patient.[facility] Encounter Details Date Type Department Care Team (Late st Contact Info) Description 01/19/2025 Patient Msg Spine Spicer [address] [place] [address] Provider, [facility] Pre Surgery appointments [...] is lower risk 8 06/01/2023 Data from: https://www.neighborhoodatlas.medicine.[facility].edu/. Last address used for calculation [address] [...] 06/22/2025 2:20 PM EDT Office Visit Rheumatology [address] [place] [address] Zulema Mclean MD [address] [facility] [address] [place] [address] 6 month follow up documented as of this encounter Visit Diagnoses Not on filedocumented in this encounter Care Teams Labor Service Representative Relationship Specialty Start Date End Date Jesus Camacho MD [address] [place] [address] PCP - General Family Medicine 05/12/23 Jesus Camacho MD Referring Family Medicine 01/14/21 Jesus Camacho MD [address] [place] [address] Referring Family Medicine 05/12/23 documented as of this encounter
--- OUTSIDE RECORDS SUMMARY | 2025-05-17 13:54 | XMS_ITS | Encounter Summary ---
Author Organization [facility] Address [address] [place] [address] Care Team Providers Care Excelsior Machine Operator Name Role Phone Jesus Camacho MD Unavailable [phone] Jesus Camacho MD Unavailable [phone] Jesus Camacho MD Primary Care Provider [phone] Source Comments In the event this information is protected by the Federal Confidentiality of Alcohol and Drug AbusePatient Records regulations: The Federal rules restrict any use of the information to criminally investigate or prosecute any alcohol or drug abuse patient.[facility] Encounter Details Date Type Department Care Team (Late st Contact Info) Description 03/12/2023 Patient Msg Rheumatology [address] [place] [address] Provider, [facility] Rheumatology Appointment Cancellation [...] on file 09/29/2022 Data from: https://www.neighborhoodatlas.medicine.[facility].edu/. Last address used for calculation [address] [...] 06/22/2025 2:20 PM EDT Office Visit Rheumatology [address] [place] [address] Zulema Mclean MD [address] [facility] [address] [place], [place] [id number] 6 month follow up documented as of this encounter Visit Diagnoses Not on filedocumented in this encounter Care Teams Excelsior Machine Operator Relationship Specialty Start Date End Date Jesus Camacho MD [address] [place] [address] PCP - General Family Medicine 05/12/23 Jesus Camacho MD Referring Family Medicine 01/14/21 Jesus Camacho MD [address] [place] [address] Referring Family Medicine 05/12/23 documented as of this encounter
--- OUTSIDE RECORDS SUMMARY | 2025-05-17 13:54 | XMS_ITS | Encounter Summary ---
Author Organization [facility] Address [address] [place] [address] Care Team Providers Care Demo Coordinator Name Role Phone Jesus Camacho MD Unavailable Jesus Camacho MD Unavailable [phone] Jesus Camacho MD Primary Care Provider [phone] Source Comments In the event this information is protected by the Federal Confidentiality of Alcohol and Drug AbusePatient Records regulations: The Federal rules restrict any use of the information to criminally investigate or prosecute any alcohol or drug abuse patient.[facility] Encounter Details Date Type Department Care Team (Late st Contact Info) Description 01/13/2025 Get Medical Advice [facility] [address] [place] [address] Jacky Pineda MD [address] [place] [address] Surgery question Social History Tobacco [...] is lower risk 8 06/01/2023 Data from: https://www.neighborhoodatlas.medicine.[facility]/. Last address used for calculation [address] [facility] Comments No Sex and Gender [...] 06/22/2025 2:20 PM EDT Office Visit Rheumatology [address] [place] [address] Zulema Mclean MD [address] [facility] [address] [place] [address] 6 month follow up documented as of this encounter Visit Diagnoses Not on filedocumented in this encounter Care Teams Demo Coordinator Relationship Specialty Start Date End Date Jesus Camacho MD [address] [place] [address] PCP - General Family Medicine 05/12/23 Jesus Camacho MD Referring Family Medicine 01/14/21 Jesus Camacho MD [address] [place] [address] Referring Family Medicine 05/12/23 documented as of this encounter
--- OUTSIDE RECORDS SUMMARY | 2025-05-17 13:54 | XMS_ITS | Encounter Summary ---
Author Organization [facility] Address [address] [place] [address] Care Team Providers Care Speech Coach Name Role Phone Jesus Camacho MD Unavailable [phone] Jeuss Camacho MD Unavailable [phone] Jesus Camacho MD Primary Care Provider [phone] Source Comments In the event this information is protected by the Federal Confidentiality of Alcohol and Drug AbusePatient Records regulations: The Federal rules restrict any use of the information to criminally investigate or prosecute any alcohol or drug abuse patient.[facility] Encounter Details Date Type Department Care Team (Late st Contact Info) Description 03/08/2025 Get Medical Advice Neurology Headache [facility] [address] [place] [address] Rachele Fenton, MARILEE.X RAY EQUIPMENT MECHANIC [address] [place] [address] Nortriptalyne Social History Tobacco Use [...] 8 06/01/2023 Data from: https://www.neighborhoodatlas.medicine.[facility]/. Last address used for calculation [...] 06/22/2025 2:20 PM EDT Office Visit Rheumatology [address] [place] [address] Zulema Mclean MD [address] [place] [address] 6 month follow up documented as of this encounter Visit Diagnoses Not on filedocumented in this encounter Care Teams Speech Coach Relationship Specialty Start Date End Date Jesus Camacho MD [address] [place] [address] PCP - General Family Medicine 05/12/23 Jesus Camacho MD Referring Family Medicine 01/14/21 Jesus Camacho MD [address] [place] [address] Referring Family Medicine 05/12/23 documented as of this encounter
--- OUTSIDE RECORDS SUMMARY | 2025-05-17 13:54 | XMS_ITS | Encounter Summary ---
Author Organization [facility] Address [facility] [place] [address] Care Team Providers Care Fluorescent Lamp Replacer Name Role Phone Jesus Camacho MD Unavailable [phone] Jesus Camacho MD Unavailable [phone] Jesus Camacho MD Primary Care Provider [phone] Source Comments In the event this information is protected by the Federal Confidentiality of Alcohol and Drug AbusePatient Records regulations: The Federal rules restrict any use of the information to criminally investigate or prosecute any alcohol or drug abuse patient.[facility] Encounter Details Date Type Department Care Team (Late st Contact Info) Description 12/09/2024 Get Medical Advice [facility] [address] [place] [id number] Jacky Pineda MD [address] [place] [address] Kourtney Novak Social History Tobacco [...] 06/01/2023 Data from: https://www.neighborhoodatlas.medicine.[facility]/. Last address used for calculation [address] [facility] 06/01/2023 Comments No Sex and Gender [...] 06/22/2025 2:20 PM EDT Office Visit Rheumatology [address] [place] [address] Zulema Mclean MD [address] [facility] [address] [place] [address] 6 month follow up documented as of this encounter Visit Diagnoses Not on filedocumented in this encounter Care Teams Fluorescent Lamp Replacer Relationship Specialty Start Date End Date Jesus Camacho MD [address] [place] [address] PCP - General Family Medicine 05/12/23 Jesus Camacho MD Referring Family Medicine 01/14/21 Jesus Camacho MD [address] [place] [address] Referring Family Medicine 05/12/23 documented as of this encounter
--- OUTSIDE RECORDS SUMMARY | 2025-05-17 13:54 | XMS_ITS | Clinical Summary ---
Author Organization [facility] Address [address] [place], [place] [id number] Care Team Providers Care Regional Guide Name Role Phone Jesus Camacho MD Unavailable [phone] Jesus Camacho MD Unavailable [phone] Jesus Camacho MD Primary Care Provider [phone] Allergies No known active allergies Medications benzonatate [...] Assessment & Plan (02/21/2025 12:36 PM EDT): [facility] nutrition education Assessment & Plan (02/14/2025 8:19 [...] treating with decadron 8bid (SSI, PPI) with halfway taper plan off over 1 week At [...] Care Team Description 05/17/2025 Refill Neurology Headache [facility] [address] [place] [address] Rachele Fenton, SLEEP SCIENTIST.TRUCK LOADER [employer] Refill Request 05/15/2025 Refill Rheumatology [address] [place] [address] Zulema Mclean MD Refill Request 04/25/2025 Refill Rheumatology [address] [place] [address] Zulema Mclean MD Refill Request 04/12/2025 7:00 AM EDT [facility] Neurology [address] [place] [address] Rachele Fenton, SLEEP SCIENTIST.TRUCK LOADER [employer]ANE Meningioma (HCC) (Primary Dx); Chronic daily headache 04/01/[address] [facility] Brain Tumor [address] [address] [place] [address] Erik Pineda MD Incision 03/29/2025 10:30 AM EDT [facility] Brain Tumor [address] [address] [place] [address] Erik Pineda MD Intracranial meningioma (HCC) (Primary Dx); Postprocedural state; Dizziness and giddiness 03/26/2025 [place] [address] Erik Pineda MD Incision 03/20/2025 [place] [address] Erik Pineda MD Antibiotic 03/20/2025 Refill [facility] [address] [place] [address] Donna Patton MD Refill Request 03/19/2025 [place] [address] Erik Pineda MD Incision picture 03/15/2025 12:00 [place] [address] S/P craniotomy (Primary Dx) 03/15/2025 Refill [facility] [address] [place], [place] [id number] Donna Patton MD Refill Request 03/15/2025 Travel 03/13/2025 Results Follow-Up Rheumatology [address] [place] [address] Zulema Mclean MD 03/12/2025 Refill Neurology Headache [facility] [address] [place] [address] Rachele Fenton, SLEEP SCIENTIST.TRUCK LOADER [employer] Refill Request 03/08/2025 [place] [address] Shakila Phillips RN Surgical Followup 03/08/2025 Get Medical Advice Neurology Headache [facility] [address] [place] [address] Rachele Fenton SLEEP SCIENTIST.TRUCK LOADER [employer]ANE Nortriptalyne 03/06/2025 10:30 AM EDT Nurse Visit [place] [phone] Shakila Phillips RN S/P craniotomy (Primary Dx); Intracranial meningioma (HCC); Postop check 03/06/2025 Refill Rheumatology [address] [place] [address] Zulema Mclean MD Refill Request 03/02/2025 1:00 PM EDT [facility] Neurosurgery [address] [place] [address] Heather Moy, SLEEP SCIENTIST.TRUCK LOADER [employer]ANE Benign neoplasm of meninges (HCC) (Primary Dx) 02/27/2025 Patient Msg Neurology [address] [place] [id number] Lisa Box RN 02/24/2025 Refill Rheumatology [address] [place] [address] Zulema Mclean MD Refill Request 02/23/2025 Telephone [facility] Tumor [address] [address] [place] [address] Shakila Phillips RN Surgical Followup 02/20/2025 12:45 PM EDT - 02/20/2025 6:45 PM EDT Surgery Admitting [facility] [place] [address] Erik Pineda MD CRANIECTOMY, TREPHINATION, BONE FLAP CRANIOTOMY / EXCISE SUPRATENTORIAL MENINGIOMA 02/20/2025 12:21 PM EDT Anesthesia Event Admitting [address] [place] [address] Zara Ramachandran DO 02/20/2025 11:00 AM EDT - 02/22/2025 3:53 PM EDT Hospital Encounter HOSP MAIN H060 [address] [place] [address] Erik Pineda MD Intracranial meningioma (HCC) [D32.0], Preop testing [Z01.818] Discharge Disposition: Home 02/20/2025 Travel 02/17/2025 Telephone [facility] Tumor [address] [address] [place] [address] Shakila Phillips RN PreOp Call 02/15/2025 2:30 PM EDT [facility] Brain Tumor [address] [address] [place] [phone] Erik Pineda MD Intracranial meningioma (HCC) (Primary Dx) 02/15/[address] [facility] Brain Tumor [address] [address] [place] [address] Erik Pineda MD Consent 02/15/2025 Telephone Pre Anesthesia [address] [place] [address] Marli Martin APRN.TRUCK LOADER [employer] Patient Update 02/14/2025 8:46 AM EDT - 02/14/2025 11:59 PM EDT Hospital Encounter Radiology [address] [place] [address] Intracranial meningioma (HCC) [D32.0] Discharge Disposition: Home 02/14/2025 7:40 AM EDT PAT Pre Anesthesia [address] [place] [address] 2, Pacc [place] Pre-op evaluation (Primary Dx); Anxiety; Chronic obstructive [...] National Score (1-100), lower number is lower [facility] 89 06/01/2023 State Score (1-10), lower number is lower risk 8 06/01/2023 Data from: https://www.neighborhoodatlas.medicine.[facility].edu/. Last address used for calculation [address] [...] 06/22/2025 2:20 PM EDT Office Visit Rheumatology [address] [place] [address] Zulema Mclean MD [address] [facility] [address] [place] [address] 6 month follow up Health Maintenance Due [...] 03/04/2021, 006 Medical Devices Implanted Type Area Post Anesthesia Nurse Device Identifier Shelf Expiration Date Model / Serial / Lot Patch Duramatrix-Onla y Plus Collagen 2x2in Dural Regeneration Membrane - [id number] Implanted:Qty: 1 on 02/20/2025 by Erik Pineda MD at [facility] Patch Right: Head - Cranial JAYNE NEUR 01/11/2027 [id number] / / [id number] Plate Bone 8 Hole Profile - [id number] Implanted:Qty: 1 on 02/20/2025 at [facility] Plate Right: Head - Cranial STRY-HOWM CRANIOMAXILLOFACIAL [id number] / / Plate 3d Large Box Low Profile Titanium Bone 2x2 Hole 1.5mm Screw - [id number] Implanted:Qty: 1 on 02/20/2025 at [facility] Plate Right: Head - Cranial STRY-HOWM CRANIOMAXILLOFACIAL [id number] / / Plate Low Profile Titanium 12mm Bone 2 Hole Bar 1.5mm Screw Nonsterile - [id number] Implanted:Qty: 2 on 02/20/2025 at [facility] Plate Right: Head - Cranial STRY-HOWM CRANIOMAXILLOFACIAL [id number] / / Cover 10mm Medium Titanium [place] Hole Low Profile Tab 1.5mm Screws - [id number] Implanted:Qty: 1 on 02/20/2025 at [facility] Plate Right: Head - Cranial STRY-HOWM CRANIOMAXILLOFACIAL [id number] / / Screw Bone Worth Neuro 3 4mm 1.5mm Self Drill Axial Stability Latex - [id number] Implanted:Qty: 11 on 02/20/2025 at [facility] Screw Right: Head - Cranial STRY-HOWM CRANIOMAXILLOFACIAL [id number] / / Worth Neuro Axs Neuro Screw Disc Pre-Loaded 1.5mm X 4mm Implanted:Qty: 17 on 02/20/2025 at [facility] Screw Right: Head - Cranial JAYNE [id number] / / Procedures Procedure Name Priority Date/Time [...] of10 resultswithin the time period is included. [facility] Glucose, Point of Care 145(A) 74 - 99 mg/dL [facility] Comment: Location:[facility], [address] [place] [address], [facility] The Accu-Chek Inform II glucose meter [...] Erik Pineda MD POC TESTING Final Result [facility] POINT OF CARE [facility] [address] [place], [place] * MRI BRAIN WO/W IVCON (02/21/2025 11:17 AM EDT) Anatomical Region Laterality Modality Head Magnetic Resonan ce 02/21/2025 11:1 7 AM EDT Impressions 02/21/2025 12:00 PM EDT IMPRESSION: Expected postoperative changes from right sphenoid wing and middle cranial fossa mass resection. No residual mass or pathologic enhancement. Teaseler: PSCB Transcribe Date/Time: Feb 21 2025 11:17A Dictated by : CHIKA RUBY MD This examination was interpreted and the report reviewed and electronically signed by: TOMAS AMADOR MD on Feb 21 2025 11:58AM EST Narrative 02/21/2025 12:00 PM EDT * * *Final Report* * * DATE OF EXAM: Feb 21 2025 11:17AM [facility] 0295 - MRI BRAIN WO/W IVCON / PROCEDURE REASON: Brain/GARMENT PATTERNMAKER neoplasm, monitor * * * * Physician [...] air cells. Unremarkable orbits. Procedure Note Provider, [facility] [place] - 02/21/2025 * * *Final Report* * * DATE OF EXAM: Feb 21 2025 11:17AM [facility] 0295 - MRI BRAIN WO/W IVCON / PROCEDURE REASON: Brain/GARMENT PATTERNMAKER neoplasm, monitor * * * * Physician [...] mass resection. No residual mass or pathologicenhancement. Teaseler: PSCB Transcribe Date/Time: Feb 21 2025 11:17A Dictated by : CHIKA RUBY MD This examination was interpreted and the report reviewed and electronically signed by: TOMAS AMADOR MD on Feb 21 2025 11:58AM EST us Erik Pineda MD MRI-PAMA Final Result * (ABNORMAL) COMPLETE BLOOD COUNT AND DIFFERENTIAL (02/21/2025 4:37 AM EDT) Pathologist [facility] WBC 12.82(H) 3.70 - 11.00 k/uL 02/21/2025 5:11 AM EDT [facility] RBC 3.77(L) 3.90 - 5.20 m/uL 02/21/2025 5:11 AM EDT [facility] Hemoglobin 11.2(L) 11.5 - 15.5 g/dL 02/21/2025 5:11 AM EDT [facility] Hematocrit 34.6(L) 36.0 - 46.0 % 02/21/2025 5:11 AM EDT [facility] MCV 91.8 80.0 - 100.0 fL 02/21/2025 5:11 AM EDT [facility] MCH 29.7 26.0 - 34.0 pg 02/21/2025 5:11 AM EDT [facility] MCHC 32.4 30.5 - 36.0 g/dL 02/21/2025 5:11 AM EDT [facility] RDW-CV 13.2 11.5 - 15.0 % 02/21/2025 5:11 AM EDT [facility] Platelet Count 309 150 - 400 k/uL 02/21/2025 5:11 AM EDT [facility] MPV 10.5 9.0 - 12.7 fL 02/21/2025 5:11 AM EDT [facility] Neutrophils % 85.4 % 02/21/2025 5:11 AM EDT [facility] Abs Neut 10.95(H) 1.45 - 7.50 k/uL 02/21/2025 5:11 AM EDT [facility] Lymphocytes % 6.8 % 02/21/2025 5:11 AM EDT [facility] Abs Lymph 0.87(L) 1.00 - 4.00 k/uL 02/21/2025 5:11 AM EDT [facility] Monocytes % 7.3 % 02/21/2025 5:11 AM EDT [facility] Abs [place] 0.94(H) <0.87 k/uL 02/21/2025 5:11 AM EDT [facility] Eosinophils % 0.0 % 02/21/2025 5:11 AM EDT [facility] Abs Eosin <0.03 <0.46 k/uL 02/21/2025 5:11 AM EDT [facility] Basophils % 0.1 % 02/21/2025 5:11 AM EDT [facility] Abs Baso <0.03 <0.11 k/uL 02/21/2025 5:11 AM EDT [facility] Immature Granulocytes % 0.4 % 02/21/2025 5:11 AM EDT [facility] Abs Immature Gran 0.05 <0.10 k/uL 02/21/2025 5:11 AM EDT [facility] NRBC 0.0 /100 WBC 02/21/2025 5:11 AM EDT [facility] Absolute nRBC <0.01 <0.01 k/uL 02/21/2025 5:11 AM EDT [facility] Diff Type Auto 02/21/2025 5:11 AM EDT [facility] Blood BLOOD SPECIMEN / Unknown Venipuncture / Unknown 02/21/2025 4:37 AM EDT 02/21/2025 4:44 AM EDT us Erik Pineda MD LABORATORY Final Result [facility] [address] [place] [address], * (ABNORMAL) BASIC METABOLIC PANEL (02/21/2025 4:37 AM EDT) Only the most recent of2 resultswithin the time period is included. Glucose 131(H) 74 - 99 mg/dL 02/21/2025 5:17 AM EDT [facility] Comment: The [place] Diabetes Association (ADA) provides guidance for cutoff [...] Standards of Medical Care in Diabetes 2016, [place] Diabetes Association. Diabetes Care. 2016.39(Suppl 1). BUN 8 7 - 21 mg/dL 02/21/2025 5:17 AM [facility] Creatinine 0.75 0.58 - 0.96 mg/dL 02/21/2025 5:17 AM [facility] Sodium 138 136 - 144 mmol/L 02/21/2025 5:17 AM [facility] Potassium 4.2 3.7 - 5.1 mmol/L 02/21/2025 5:17 AM [facility] Chloride 105 98 - 107 mmol/L 02/21/2025 5:17 AM [facility] CO2 20(L) 22 - 30 mmol/L 02/21/2025 5:17 AM [facility] Anion Gap 13 8 - 15 mmol/L 02/21/2025 5:17 AM [facility] Calcium, Total 8.8 8.5 - 10.2 mg/dL 02/21/2025 5:17 AM [facility] Estimated Glomerular Filtration Rate 99 >=60 mL/min/1.7 3m 02/21/2025 5:17 AM [facility] Comment:Estimated Glomerular Filtration Rate (eGFR) [...] us Erik Pineda MD LABORATORY Final Result [facility] [address] [facility] [place] [address], * (ABNORMAL) ARTERIAL BLOOD GASES WITH IONIZED MAGNESIUM (02/20/2025 3:51 PM EDT) Only the most recent of2 resultswithin the time period is included. pH, Arterial 7.41 7.35 - 7.45 02/20/2025 4:02 PM EDT [facility] pH, Temp Corrected, Arterial 7.41 7.35 - 7.45 02/20/2025 4:02 PM EDT [facility] pCO2, Arterial 33(L) 36 - 46 mm Hg 02/20/2025 4:02 PM EDT [facility] pCO2, Temp Corrected, Arterial 33(L) 36 - 46 mmHg 02/20/2025 4:02 PM EDT [facility] pO2, Arterial 208(H) 85 - 95 mm Hg 02/20/2025 4:02 PM EDT [facility] pO2, Temp Corrected, Arterial 208(H) 85 - 95 mmHg 02/20/2025 4:02 PM EDT [facility] Bicarbonate, Arterial 20(L) 22 - 26 mmol/L 02/20/2025 4:02 PM EDT [facility] O2 Saturation, Arterial 98 95 - 98 % 02/20/2025 4:02 PM EDT [facility] Base Deficit, Arterial -4(L) -2 - 0 mmol/L 02/20/2025 4:02 PM EDT [facility] Oxyhemoglobin, Arterial 96 95 - 98 % 02/20/2025 4:02 PM EDT [facility] Carboxyhemoglo bin, Arterial 0.6 0.0 - 2.0 % 02/20/2025 4:02 PM EDT [facility] Comment:Carboxyhemoglobin Re ference Range for Smokers: 2.0-8.0% Methemoglobin, Arterial 2.1(H) 0.0 - 1.5 % 02/20/2025 4:02 PM EDT [facility] Sodium, Whole Blood 137 136 - 144 mmol/L 02/20/2025 4:02 PM EDT [facility] Potassium, Whole Blood 4.2 3.5 - 5.0 mmol/L 02/20/2025 4:02 PM EDT [facility] Calcium Ionized, Whole Blood 1.11 1.08 - 1.30 mmol/L 02/20/2025 4:02 PM EDT [facility] Calcium Ionized, pH corrected 1.12 1.08 - 1.30 mmol/L 02/20/2025 4:02 PM EDT [facility] Glucose, Whole Blood 113(H) 60 - 105 mg/dL 02/20/2025 4:02 PM EDT [facility] Lactate 1.0 0.5 - 2.2 mmol/L 02/20/2025 4:02 PM EDT [facility] Ionized Magnesium 0.42(L) 0.45 - 0.60 mmol/L 02/20/2025 4:02 PM EDT [facility] Hemoglobin, Whole Blood 10.6(L) 11.5 - 15.5 g/dL 02/20/2025 4:02 PM EDT [facility] Hematocrit, Whole Blood 32.7(L) 36.0 - 46.0 % 02/20/2025 4:02 PM EDT [facility] Blood, Arterial BLOOD SPECIMEN / Unknown 02/20/2025 3:51 PM EDT 02/20/2025 3:58 PM EDT us Zara Ramachandran DO BLOOD GASES Final Resul t [facility] [address] [place] [address], * SURGICAL PATHOLOGY (02/20/2025 3:13 PM EDT) Case Report Surgical Pathology Report Case: [id number] Authorizing Provider: Erik Pineda MD Collected: 02/20/2025 03:13 PM Ordering Location: Admitting Received: 02/20/2025 04:45 PM Pathologist: Brody Olvera MD Specimen: Brain, Resection, right middle sphenoid wing tumor 02/24/2025 3:36 PM EDT [facility] FINAL DIAGNOSIS A. Right middle sphenoid wing region, excision: - Morphologically consistent with meningothelial meningioma, WHO grade 1 02/24/2025 3:36 PM EDT [facility] at 1536 EDT Diagnosis Comment Immunohistochemical staining of the tumor with antibodies to SSTR2a and ID was performed on block A1. The tumor shows positive staining with both antibodies, consistent with the diagnosis. A Ki-67 index of approximately 2-3% is focally noted. 02/24/2025 3:36 PM EDT [facility] Gross Description A. Brain, Resection Received in formalin, labeled as brain resection, right middle sphenoid wing tumor is a single bryant-brown irregular rubbery tissue measuring 2.1 x 1.3 x 0.5 cm. Sectioning reveals bryant-davidson homogenous cut surfaces. Totally submitted in cassettes A1-A2. CG February 21, 2025 10:13 AM Gross examination performed at [facility], [address] [place] [address] 02/24/2025 3:36 PM EDT [facility] Clinical History Pre-op diagnosis: Intracranial meningioma (HCC) [D32.0] Preop testing [Z01.818] 02/24/2025 3:36 PM EDT [facility] Performing Lab Diagnostic interpretation performed at: [facility], [address] [place] [address], [place] [address] CLIA# [id number] Dry Box Tender: Charan Ryan MD 02/24/2025 3:36 PM EDT [facility] Disclaimer Laboratory Developed Test (LDT) Disclaimer: Performance characteristics of immunohistochemical, immunofluorescent, and chromogenic in-situ hybridization tests have been determined by the performing laboratory within [facility]'s Andrzej Conn Pathology and Laboratory Medicine Department ([facility], [facility], [facility], [facility], [facility], [facility], or [facility]) in a manner consistent with CLIA requirements. One or more of these tests may not have been cleared or approved by the FDA. [facility] is regulated under CLIA as qualified to perform high-complexity testing. These tests are used for clinical purposes. These should not be regarded as investigational or for research. Positive and negative controls stain appropriately. 02/24/2025 3:36 PM EDT [facility] Tissue [facility] CANCER CHECKLIST; BRAIN/SPINAL CORD: BIOPSY/RESECTION / Unknown 02/20/2025 3:13 PM EDT 02/20/2025 4:45 PM EDT Comment:Pre-op diagnosis: Intracranial meningioma (HCC) [D32.0] Preop testing [Z01.818] us Erik Pineda MD SURGICAL PATHOLOGY Final Resu lt [facility] [address] [facility] [place] [id number], [place] * ARTL CATHJ/CANNULJ MNTR/TRANSFUSION SPX PRQ [...] Successful intubation technique: video laryngoscopy Devices used: FookyZ Endotracheal tube insertion site: oral Blade: Cora [...] EDT 02/15/2025 12:56 PM EDT Marli Martin SLEEP SCIENTIST.TRUCK LOADER [employer] CRANE BLOOD BANK Final Res ult [facility] BLOOD BANK [address] [facility] [address] [place] [id number], [place] * HEMOGLOBIN A1C (02/15/2025 12:56 PM EDT) Hemoglobin A1C 5.4 4.3 - 5.6 % 02/16/2025 6:33 AM EDT [facility] Comment:[place] Diabetes As sociation guidelines indicate that patients with HgbA1c in the range 5.7-6.4% are at increased risk for development of diabetes, and intervention by lifestyle modification may be beneficial. HgbA1c greater or equal to 6.5% is considered diagnostic of diabetes. Estimated Average Glucose 108 mg/dL 02/16/2025 6:33 AM EDT [facility] Comment:eAG: (Estimated aver age glucose) is a calculated value from HgbA1c and is jewelry sales representative of the average blood glucose level in the last 2-3 month period. Blood BLOOD SPECIMEN / Unknown Venipuncture / Unknown 02/15/2025 12:56 PM EDT 02/15/2025 12:56 PM EDT Marli Martin SLEEP SCIENTIST.TRUCK LOADER [employer] CRANE LABORATORY Final Res ult [facility] [address] [facility] [address] [place] [address], [place] * MRI BRAIN WO/W IVCON (02/14/2025 [...] exam in November 2015. No acute abnormalities. [facility] Transcribe Date/Time: Feb 14 2025 10:01A Dictated by : SEAN BLOCK MD This examination was interpreted and the report reviewed and electronically signed by: SEAN BLOCK MD on Feb 14 2025 10:22AM EST Narrative 02/14/2025 10:37 AM EDT * * *Final Report* * * DATE OF EXAM: Feb 14 2025 10:37AM [facility] 0295 - MRI BRAIN WO/W [...] tissue mass extending into the of the warehouse guard or parapharyngeal spaces. The soft tissue planes of the, retropharyngeal, and prevertebral spaces are maintained. The visualized parotid glands are normal in appearance. Nasopharynx/Oropharynx: The nasopharynx and oropharynx are normal in appearance. Procedure Note Provider, [facility] [place] - 02/14/2025 * * *Final Report* * * DATE OF EXAM: Feb 14 2025 10:37AM [facility] 0295 - MRI BRAIN WO/W [...] tissue mass extending into the of the warehouse guard or parapharyngeal spaces. The soft tissue planes [...] exam in November 2015. No acute abnormalities. Teaseler: PSCB Transcribe Date/Time: Feb 14 2025 10:01A [...] CEPHEID GENEXPERT COVID19 02/14/2025 10:17 PM EDT [facility] Swab POSTERIOR NARES / Unknown Non Blood / Unknown 02/14/2025 8:19 AM EDT 02/14/2025 8:20 AM EDT us Erik Pineda MD LABORATORY Final Result [facility] [address] [place] [address], * TYPE AND SCREEN,30 DAY (02/14/2025 8:19 [...] Erik Pineda MD BLOOD BANK Final Result [facility] BLOOD BANK [address] [place] [address], [place] * SEDIMENTATION RATE, WESTERGREN (02/14/2025 8:19 AM EDT) Sed Rate, Westergren 2 0 - 20 mm/hr 02/14/2025 5:30 PM EDT [facility] Blood BLOOD SPECIMEN / Unknown Venipuncture / Unknown 02/14/2025 8:19 AM EDT 02/14/2025 8:20 AM EDT us Zulema Mclean MD LABORATORY Final Result Performing Organization Address [facility] Co de Phone Number [facility] [address] [place] [address], [place] * COMPLETE BLOOD COUNT (02/14/2025 8:19 AM EDT) WBC 7.27 3.70 - 11.00 k/uL 02/14/2025 2:28 PM EDT [facility] RBC 4.21 3.90 - 5.20 m/uL 02/14/2025 2:28 PM EDT [facility] Hemoglobin 12.6 11.5 - 15.5 g/dL 02/14/2025 2:28 PM EDT [facility] Hematocrit 39.2 36.0 - 46.0 % 02/14/2025 2:28 PM EDT [facility] MCV 93.1 80.0 - 100.0 fL 02/14/2025 2:28 PM EDT [facility] MCH 29.9 26.0 - 34.0 pg 02/14/2025 2:28 PM EDT [facility] MCHC 32.1 30.5 - 36.0 g/dL 02/14/2025 2:28 PM EDT [facility] RDW-CV 13.4 11.5 - 15.0 % 02/14/2025 2:28 PM EDT [facility] Platelet Count 329 150 - 400 k/uL 02/14/2025 2:28 PM EDT [facility] MPV 10.9 9.0 - 12.7 fL 02/14/2025 2:28 PM EDT [facility] Absolute nRBC <0.01 <0.01 k/uL 02/14/2025 2:28 PM EDT [facility] Blood BLOOD SPECIMEN / Unknown Venipuncture / Unknown 02/14/2025 8:19 AM EDT 02/14/2025 8:20 AM EDT us Zulema Mclean MD LABORATORY Final Result Performing Organization Address City/[facility]/ZIP Co de Phone Number [facility] [address] [place] [address], [place] * C-REACTIVE PROTEIN (02/14/2025 8:19 AM EDT) CRP 0.6 <0.9 mg/dL 02/14/2025 8:59 PM EDT [facility] Blood BLOOD SPECIMEN / Unknown Venipuncture / Unknown 02/14/2025 8:19 AM EDT 02/14/2025 8:20 AM EDT us Zulema Mclean MD LABORATORY Final Result Performing Organization Address City/[facility]/ZIP Co de Phone Number [facility] [address] [place] [address], [place] * ASPARTATE AMINOTRANSFERASE/SGOT (02/14/2025 8:19 AM EDT) AST 20 13 - 35 U/L 02/14/2025 8:59 PM EDT [facility] Blood BLOOD SPECIMEN / Unknown Venipuncture / Unknown 02/14/2025 8:19 AM EDT 02/14/2025 8:20 AM EDT us Zulema Mclean MD LABORATORY Final Result [facility] [address] [facility] [address] [address], * ALANINE AMINOTRANSFERASE / SGPT (02/14/2025 8:19 AM EDT) ALT 27 7 - 38 U/L 02/14/2025 8:59 PM EDT [facility] Blood BLOOD SPECIMEN / Unknown Venipuncture / Unknown 02/14/2025 8:19 AM EDT 02/14/2025 8:20 AM EDT us Zulema Mclean MD LABORATORY Final Result Performing Organization Address [facility] Co de Phone Number [facility] [address] [facility] [address] [address], * ECG COMPLETE (02/14/2025 7:00 AM EDT) Ventricular Rate 77 BPM [facility] Atrial Rate 77 BPM [facility] P-R Interval 138 ms [facility] QRS Duration 82 ms [facility] QT Interval 386 ms [facility] QTC Calculation (Bazett) 436 ms [facility] Calculated P [place] 36 degrees [facility] Calculated R [place] 47 degrees [facility] Calculated T [place] 47 degrees [facility] 02/14/2025 7:00 AM EDT Impressions [facility] - 02/14/2025 1:23 PM EDT NORMAL SINUS RHYTHM NORMAL ECG Confirmed by DI YORK M.D. ([id number]) on 02/14/2025 1:23:03 PM Narrative [facility] - 02/14/2025 1:23 PM EDT NAME : KOURTNEY NOVAK PID : [id number] : 1975 Gender : Female Race : [...] Final Result [facility] [address] [place] [id number] * HEP REMOTE PANEL BL (03/04/2021 1:39 PM EDT) Pathologist [facility] Hep B Core Ab, Total Negative Negative 03/04/2021 6:54 PM EDT [facility] Hep C Antibody [place] Negative Negative 03/04/2021 6:55 PM EDT [facility] HBsAg Negative Negative 03/04/2021 6:54 PM EDT [facility] Hep B Surface Ab, Qual Negative Negative 03/04/2021 6:55 PM EDT [facility] [facility] Comment:NEGATIVE Blood 03/04/2021 1:39 PM EDT 03/04/2021 1:41 PM EDT Zulema Mclean MD LABORATORY Final Result Performing Organization Address [facility] de Phone Number [facility] LAB[facility] [address] [place] [address] [facility] [address] [place] [address] * HIV AB 1&2 SCREEN (01/05/2006 3:17 PM EDT) HIV 1 & 2 Ab (EIA) Non Reactive NR [facility] Comment: If results are indeterminate or otherwise inconsistent with an individual's clinical presentation or risk profile for HIV infection a repeat specimen is requested. A repeat specimen is also recommended for any individual identified positive for the first time. 01/05/2006 3:17 PM EDT us Wade Iqbal LABORATORY Final Result Performing Organization Address City/[facility]/ZIP Co de Phone Number [facility] [address] [place] [address] from Last 3 Months or Most Recently Relevant to Health Maintenance Insurance [place] Member Subscriber Plan / Payer (Ef fective 2024-Present) Name:Kourtney Novak Alex Relation to Subscriber:Self Name:Kourtney Novak Alex Payer ID:Not on file Group ID:Not on file Type:Medicaid Address: [address] [place] [id number] [employer] O Care Teams Regional Guide Relationship Specialty Start Date End Date Jesus Camacho MD [address] [place] [address] PCP - General Family Medicine 05/12/23 Jesus Camacho MD Referring Family Medicine 01/14/21 Jesus Camacho MD [address] [place] [address] Referring Family Medicine 05/12/23
--- OUTSIDE RECORDS SUMMARY | 2025-05-17 13:54 | XMS_ITS | Encounter Summary ---
Author Organization [facility] Address [facility] [place] [address] Care Team Providers Care Insulation Board Back Tender Name Role Phone Jesus Camacho MD Unavailable [phone] Jesus Camacho MD Unavailable [phone] Jesus Camacho MD Primary Care Provider [phone] Source Comments In the event this information is protected by the Federal Confidentiality of Alcohol and Drug AbusePatient Records regulations: The Federal rules restrict any use of the information to criminally investigate or prosecute any alcohol or drug abuse patient.[facility] Encounter Details Date Type Department Care Team (Late st Contact Info) Description 03/13/2025 Results Follow-Up Rheumatology [address] [place] [address] Zulema Mclean MD [address] [facility] [facility] [address] [place] [address] Social History Tobacco Use Types Packs/Day Years [...] 8 06/01/2023 Data from: https://www.neighborhoodatlas.medicine.[facility]/. Last address used for calculation [address] [facility] 06/01/2023 Comments No Sex and Gender [...] 06/22/2025 2:20 PM EDT Office Visit Rheumatology [address] [place] [address] Zulema Mclean MD [address] [facility] [address] [place] [address] 6 month follow up documented as of this encounter Visit Diagnoses Not on filedocumented in this encounter Care Teams Insulation Board Back Tender Relationship Specialty Start Date End Date Jesus Camacho MD [address] [place] [address] PCP - General Family Medicine 05/12/23 Jesus Camacho MD Referring Family Medicine 01/14/21 Jesus Camacho MD [address] [place] [address] Referring Family Medicine 05/12/23 documented as of this encounter
--- OUTSIDE RECORDS SUMMARY | 2025-05-17 13:54 | XMS_ITS | Encounter Summary ---
Author Organization [facility] Address [address] [place] [address] Care Team Providers Care Orange Peel Operator Name Role Phone Jesus Camacho MD Unavailable [phone] Jesus Camacho MD Unavailable [phone] Jesus Camacho MD Primary Care Provider [phone] Source Comments In the event this information is protected by the Federal Confidentiality of Alcohol and Drug AbusePatient Records regulations: The Federal rules restrict any use of the information to criminally investigate or prosecute any alcohol or drug abuse patient.[facility] Encounter Details Date Type Department Care Team (Late st Contact Info) Description 02/09/2024 Get Medical Advice Neurology Headache [facility] [address] [place] [address] Rachele Fenton, MARILEE.DRAFTER ELECTROMECHANICAL [address] [place] [address] Medicine Social History Tobacco Use [...] 8 06/01/2023 Data from: https://www.neighborhoodatlas.medicine.[facility]/. Last address used for calculation [address] [facility] 06/01/2023 Comments No Sex and Gender [...] 06/22/2025 2:20 PM EDT Office Visit Rheumatology [address] [place] [address] Zulema Mclean MD [address] [facility] [address] [place] [address] 6 month follow up documented as of this encounter Visit Diagnoses Not on filedocumented in this encounter Care Teams Orange Peel Operator Relationship Specialty Start Date End Date Jesus Camacho MD [address] [place] [address] PCP - General Family Medicine 05/12/23 Jesus Camacho MD Referring Family Medicine 01/14/21 Jesus Camacho MD [address] [place] [address] Referring Family Medicine 05/12/23 documented as of this encounter
--- OUTSIDE RECORDS SUMMARY | 2025-05-17 13:54 | XMS_ITS | Encounter Summary ---
Author Organization [facility] Address [facility] [place] [address] Care Team Providers Care Chief Science Officer Name Role Phone Jesus Camacho MD Unavailable [phone] Jesus Camacho MD Unavailable [phone] Jesus Camacho MD Primary Care Provider [phone] Source Comments In the event this information is protected by the Federal Confidentiality of Alcohol and Drug AbusePatient Records regulations: The Federal rules restrict any use of the information to criminally investigate or prosecute any alcohol or drug abuse patient.[facility] Encounter Details Date Type Department Care Team (Late st Contact Info) Description 12/01/2024 Get Medical Advice [facility] [address] [place] [address] Jacky Pineda MD [address] [place] [address] Surgery Social History Tobacco Use [...] is lower risk 8 06/01/2023 Data from: https://www.neighborhoodatlas.medicine.[facility]/. Last address used for calculation [address] [...] 06/22/2025 2:20 PM EDT Office Visit Rheumatology [address] [place] [address] Zulema Mclean MD [address] [facility] [address] [place] [address] 6 month follow up documented as of this encounter Visit Diagnoses Not on filedocumented in this encounter Care Teams Chief Science Officer Relationship Specialty Start Date End Date Jesus Camacho MD [address] [place] [address] PCP - General Family Medicine 05/12/23 Jesus Camacho MD Referring Family Medicine 01/14/21 Jesus Camacho MD [address] [place] [address] Referring Family Medicine 05/12/23 documented as of this encounter
--- OUTSIDE RECORDS SUMMARY | 2025-05-17 13:54 | XMS_ITS | Encounter Summary ---
Author Organization [facility] Address [address] [place] [address] Care Team Providers Care Hospice Administrator Name Role Phone Jesus Camacho MD Unavailable [phone] Jesus Camacho MD Unavailable [phone] Jesus Camacho MD Primary Care Provider [phone] Source Comments In the event this information is protected by the Federal Confidentiality of Alcohol and Drug AbusePatient Records regulations: The Federal rules restrict any use of the information to criminally investigate or prosecute any alcohol or drug abuse patient.[facility] Reason for Visit * Reason Comments Refill Request Encounter Details Date Type Department Care Team (Late st Contact Info) Description 05/15/2025 Refill Rheumatology [address] [place] [address] Zulema Mclean MD [address] [facility] [address] [place] [address] Refill Request Social History Tobacco [...] is lower risk 8 06/01/2023 Data from: https://www.neighborhoodatlas.medicine.[facility]/. Last address used for calculation [...] EST [facility] 06/22/2025 2:20 PM RHEU [facility] REJ Last Ophthalmology Check for [...] 06/22/2025 2:20 PM EDT Office Visit Rheumatology [address] [place] [address] Zulema Mclean MD [address] [facility] [address] [place] [address] 6 month follow up documented as of this encounter Visit Diagnoses Diagnosis Fibromyalgia Mylagia and myositis, unspecified documented in this encounter Care Teams Hospice Administrator Relationship Specialty Start Date End Date Jesus Camacho MD [address] [place] [address] PCP - General Family Medicine 05/12/23 Jesus Camacho MD Referring Family Medicine 01/14/21 Jesus Camacho MD [address] [place] [address] Referring Family Medicine 05/12/23 documented as of this encounter
--- OUTSIDE RECORDS SUMMARY | 2025-05-17 13:54 | XMS_ITS | Encounter Summary ---
Author Organization [facility] Address [place] [address] Care Team Providers Care Cable Tower Operator Name Role Phone Jesus Camacho MD Unavailable [phone] Jesus Camacho MD Unavailable Jesus Camacho MD Primary Care Provider [phone] Source Comments In the event this information is protected by the Federal Confidentiality of Alcohol and Drug AbusePatient Records regulations: The Federal rules restrict any use of the information to criminally investigate or prosecute any alcohol or drug abuse patient.[facility] Encounter Details Date Type Department Care Team (Late st Contact Info) Description 03/19/2025 Get Medical Advice [facility] [address] [place] [id number] Jacky Pineda MD [address] [place] [address] Incision picture Social History Tobacco [...] is lower risk 8 06/01/2023 Data from: https://www.neighborhoodatlas.medicine.[facility]/. Last address used for calculation [address] [...] 06/22/2025 2:20 PM EDT Office Visit Rheumatology [address] [place] [address] Zulema Mclean MD [address] [facility] [address] [place] [address] 6 month follow up documented as of this encounter Visit Diagnoses Not on filedocumented in this encounter Care Teams Cable Tower Operator Relationship Specialty Start Date End Date Jesus Camacho MD [address] [place] [address] PCP - General Family Medicine 05/12/23 Jesus Camacho MD Referring Family Medicine 01/14/21 Jesus Camacho MD [address] [place] [address] Referring Family Medicine 05/12/23 documented as of this encounter
--- OUTSIDE RECORDS SUMMARY | 2025-05-17 13:54 | XMS_ITS | Encounter Summary ---
Author Organization [facility] Address [address] [place] [address] Care Team Providers Care Model Set Artist Name Role Phone Jesus Camacho MD Unavailable [phone] Jesus Camacho MD Unavailable [phone] Jesus Camacho MD Primary Care Provider [phone] Source Comments In the event this information is protected by the Federal Confidentiality of Alcohol and Drug AbusePatient Records regulations: The Federal rules restrict any use of the information to criminally investigate or prosecute any alcohol or drug abuse patient.[facility] Encounter Details Date Type Department Care Team (Late st Contact Info) Description 12/05/2024 Patient Msg [facility] [address] [place] [address] Provider, Ccf Today's Phone Call - Vision [...] lower risk 8 06/01/2023 Data from: https://www.neighborhoodatlas.medicine.[facility]/. Last address used for [...] 06/22/2025 2:20 PM EDT Office Visit Rheumatology [address] [place] [address] Zulema Mclean MD [address] [facility] [address] [place] [address] 6 month follow up documented as of this encounter Visit Diagnoses Not on filedocumented in this encounter Care Teams Model Set Artist Relationship Specialty Start Date End Date Jesus Camacho MD [address] [place] [address] PCP - General Family Medicine 05/12/23 Jesus Camacho MD Referring Family Medicine 01/14/21 Jesus Camacho MD [address] [place] [address] Referring Family Medicine 05/12/23 documented as of this encounter
--- OUTSIDE RECORDS SUMMARY | 2025-05-17 13:54 | XMS_ITS | Encounter Summary ---
Author Organization [facility] Address [address] [place] [address] Care Team Providers Care Palliative Care Coordinator Name Role Phone Jesus Camacho MD Unavailable [phone] Jesus Camacho MD Unavailable [phone] Jesus Camacho MD Primary Care Provider [phone] Source Comments In the event this information is protected by the Federal Confidentiality of Alcohol and Drug AbusePatient Records regulations: The Federal rules restrict any use of the information to criminally investigate or prosecute any alcohol or drug abuse patient.[facility] Encounter Details Date Type Department Care Team (Late st Contact Info) Description 11/30/2023 Patient Msg [facility] [address] [place] [address] Laron Lou DO, PhD [address] [facility] [address] [place] [address] Appointment Request Social History Tobacco [...] lower risk 8 06/01/2023 Data from: https://www.neighborhoodatlas.medicine.[facility]/. Last address used for calculation [address] [facility] 06/01/2023 Comments No Sex and [...] 06/22/2025 2:20 PM EDT Office Visit Rheumatology [address] [place] [address] Zulema Mclean MD [address] [facility] [address] [place] [address] 6 month follow up documented as of this encounter Visit Diagnoses Not on filedocumented in this encounter Care Teams Palliative Care Coordinator Relationship Specialty Start Date End Date Jesus Camacho MD [address] [place] [address] PCP - General Family Medicine 05/12/23 Jesus Camacho MD Referring Family Medicine 01/14/21 Jesus Camacho MD [address] [place] [address] Referring Family Medicine 05/12/23 documented as of this encounter
--- OUTSIDE RECORDS SUMMARY | 2025-05-17 13:54 | XMS_ITS | Encounter Summary ---
Author Organization [facility] Address [address] [place] [address] Care Team Providers Care Release Specialist Name Role Phone Jesus Camacho MD Unavailable Jesus Camacho MD Unavailable [phone] Jesus Camacho MD Primary Care Provider [phone] Source Comments In the event this information is protected by the Federal Confidentiality of Alcohol and Drug AbusePatient Records regulations: The Federal rules restrict any use of the information to criminally investigate or prosecute any alcohol or drug abuse patient.[facility] Encounter Details Date Type Department Care Team (Late st Contact Info) Description 02/27/2025 Patient Msg Neurology [address] [place] [address] Lisa Box, VENUS Social History [...] lower risk 8 06/01/2023 Data from: https://www.neighborhoodatlas.medicine.[facility]/. Last address used for calculation [address] [...] 06/22/2025 2:20 PM EDT Office Visit Rheumatology [address] [place] [address] Zulema Mclean MD [address] [facility] [address] [place] [address] 6 month follow up documented as of this encounter Visit Diagnoses Not on filedocumented in this encounter Care Teams Release Specialist Relationship Specialty Start Date End Date Jesus Camacho MD [address] [place] [address] PCP - General Family Medicine 05/12/23 Jesus Camacho MD Referring Family Medicine 01/14/21 Jesus Camacho MD [address] [place] [address] Referring Family Medicine 05/12/23 documented as of this encounter
--- OUTSIDE RECORDS SUMMARY | 2025-05-17 13:54 | XMS_ITS | Encounter Summary ---
Author Organization [facility] Address [facility] [place] [address] Care Team Providers Care Supply Requirements Officer Name Role Phone Jesus Camacho MD Unavailable [phone] Jesus Camacho MD Unavailable [phone] Jesus Camacho MD Primary Care Provider [phone] Source Comments In the event this information is protected by the Federal Confidentiality of Alcohol and Drug AbusePatient Records regulations: The Federal rules restrict any use of the information to criminally investigate or prosecute any alcohol or drug abuse patient.[facility] Reason for Visit * Reason Comments Refill Request Encounter Details Date Type Department Care Team (Late st Contact Info) Description 05/17/2025 Refill Neurology Headache [facility] [address] [place] [address] Rachele Fenton APRN.CIVIL ENGINEER LAND DEVELOPMENT [address] [place] [address] Refill Request Social History Tobacco [...] 8 06/01/2023 Data from: https://www.neighborhoodatlas.medicine.[facility]/. Last address used for calculation [address] [...] 06/22/2025 2:20 PM EDT Office Visit Rheumatology [address] [place] [address] Zulema Mclean MD [address] [facility] [address] [place] [address] 6 month follow up documented as of this encounter Visit Diagnoses Diagnosis Chronic daily headache Headache documented in this encounter Care Teams Supply Requirements Officer Relationship Specialty Start Date End Date Jesus Camacho MD [address] [place] [address] PCP - General Family Medicine 05/12/23 Jesus Camacho MD Referring Family Medicine 01/14/21 Jesus Camacho MD [address] [place] [address] Referring Family Medicine 05/12/23 documented as of this encounter
--- OUTSIDE RECORDS SUMMARY | 2025-05-17 13:54 | XMS_ITS | Encounter Summary ---
Author Organization [facility] Address [address] [place] [address] Care Team Providers Care Director Of Event Management Name Role Phone Jesus Camacho MD Unavailable [phone] Jesus Camacho MD Unavailable [phone] Jesus Camacho MD Primary Care Provider [phone] Source Comments In the event this information is protected by the Federal Confidentiality of Alcohol and Drug AbusePatient Records regulations: The Federal rules restrict any use of the information to criminally investigate or prosecute any alcohol or drug abuse patient.[facility] Encounter Details Date Type Department Care Team (Late st Contact Info) Description 01/27/2024 [place] [address] Provider, Ccf Questionnaire Submission Social History Tobacco [...] is lower risk 8 06/01/2023 Data from: https://www.neighborhoodatlas.medicine.[facility].edu/. Last address used for calculation [address] [...] 06/22/2025 2:20 PM EDT Office Visit Rheumatology [address] [place] [address] Zulema Mclean MD [address] [facility] [address] [place], [place] [address] 6 month follow up documented as of this encounter Visit Diagnoses Not on filedocumented in this encounter Care Teams Director Of Event Management Relationship Specialty Start Date End Date Jesus Camacho MD [address] [place] [address] PCP - General Family Medicine 05/12/23 Jesus Camacho MD Referring Family Medicine 01/14/21 Jesus Camacho MD [address] [place] [address] Referring Family Medicine 05/12/23 documented as of this encounter
--- OUTSIDE RECORDS SUMMARY | 2025-05-17 13:54 | XMS_ITS | Encounter Summary ---
Author Organization [facility] Address [address] [place] [address] Care Team Providers Care Cork Insulation Setter Name Role Phone Jesus Camacho MD Unavailable [phone] Jesus Camacho MD Unavailable [phone] Jesus Camacho MD Primary Care Provider [phone] Source Comments In the event this information is protected by the Federal Confidentiality of Alcohol and Drug AbusePatient Records regulations: The Federal rules restrict any use of the information to criminally investigate or prosecute any alcohol or drug abuse patient.[facility] Encounter Details Date Type Department Care Team (Late st Contact Info) Description 02/03/2024 Cure Form [facility] [address] [place] [id number] Shakila Phillips, RN [address] [place] [address] Intracranial meningioma (HCC) (Primary Dx); Preop testing [...] Data from: https://www.neighborhoodatlas.medicine.[facility]/. Last address used for calculation [address] [...] 06/22/2025 2:20 PM EDT Office Visit Rheumatology [address] [place] [address] Zulema Mclean MD [address] [facility] [address] [place] [address] 6 month follow up Scheduled Orders Name Type Priority Associated Diagnoses Orde r Schedule REFER FOR ADMIT INTERVIEW Procedures Routine Intracranial meningioma (HCC) Preop testing Ordered: 02/03/2024 documented as of this encounter Visit Diagnoses Diagnosis Intracranial meningioma (HCC)- Primary Benign neoplasm of cerebral meninges Preop testing Preoperative examination, unspecified documented in this encounter Care Teams Cork Insulation Setter Relationship Specialty Start Date End Date Jesus Camacho MD [address] [place] [address] PCP - General Family Medicine 05/12/23 Jesus Camacho MD Referring Family Medicine 01/14/21 Jesus Camacho MD [address] [place] [address] Referring Family Medicine 05/12/23 documented as of this encounter
--- OUTSIDE RECORDS SUMMARY | 2025-05-17 13:54 | XMS_ITS | Encounter Summary ---
Author Organization [facility] Address [address] [place] [address] Care Team Providers Care Facilities Assistant Name Role Phone Jesus Camacho MD Unavailable [phone] Jesus Camacho MD Unavailable [phone] Jesus Camacho MD Primary Care Provider [phone] Source Comments In the event this information is protected by the Federal Confidentiality of Alcohol and Drug AbusePatient Records regulations: The Federal rules restrict any use of the information to criminally investigate or prosecute any alcohol or drug abuse patient.[facility] Encounter Details Date Type Department Care Team (Late st Contact Info) Description 12/11/2024 Get Medical Advice Neurology Headache [facility] [address] [place] [address] Rachele Fenton, MARILEE.PEST CONTROL SERVICE REPRESENTATIVE [address] [place] [address] Medicine Social History Tobacco Use [...] is lower risk 8 06/01/2023 Data from: https://www.neighborhoodatlas.medicine.[facility]/. Last address used for calculation [address] [facility] 06/01/2023 Comments No Sex and Gender [...] 06/22/2025 2:20 PM EDT Office Visit Rheumatology [address] [place] [address] Zulema Mclean MD [address] [facility] [address] [place] [address] 6 month follow up documented as of this encounter Visit Diagnoses Not on filedocumented in this encounter Care Teams Facilities Assistant Relationship Specialty Start Date End Date Jesus Camacho MD [address] [place] [address] PCP - General Family Medicine 05/12/23 Jesus Camacho MD Referring Family Medicine 01/14/21 Jesus Camacho MD [address] [place] [address] Referring Family Medicine 05/12/23 documented as of this encounter
--- OUTSIDE RECORDS SUMMARY | 2025-05-17 13:54 | XMS_ITS | Encounter Summary ---
Author Organization [facility] Address [facility] [place] [address] Care Team Providers Care Appeals Nurse Name Role Phone Jesus Camacho MD Unavailable [phone] Jesus Camacho MD Unavailable [phone] Jesus Camacho MD Primary Care Provider [phone] Source Comments In the event this information is protected by the Federal Confidentiality of Alcohol and Drug AbusePatient Records regulations: The Federal rules restrict any use of the information to criminally investigate or prosecute any alcohol or drug abuse patient.[facility] Encounter Details Date Type Department Care Team (Late st Contact Info) Description 03/14/2024 Get Medical Advice [facility] [address] [place] [address] Jacky Pineda MD [address] [place] [address] Need to cancel Social History [...] lower risk 8 06/01/2023 Data from: https://www.neighborhoodatlas.medicine.[facility]/. Last address used for calculation [address] [facility] 06/01/2023 Comments No Sex and [...] 06/22/2025 2:20 PM EDT Office Visit Rheumatology [address] [place] [address] Zulema Mclean MD [address] [facility] [address] [place] [address] 6 month follow up documented as of this encounter Visit Diagnoses Not on filedocumented in this encounter Care Teams Appeals Nurse Relationship Specialty Start Date End Date Jesus Camacho MD [address] [place] [address] PCP - General Family Medicine 05/12/23 Jesus Camacho MD Referring Family Medicine 01/14/21 Jesus Camacho MD [address] [place] [address] Referring Family Medicine 05/12/23 documented as of this encounter
--- OUTSIDE RECORDS SUMMARY | 2025-05-17 13:54 | XMS_ITS | Encounter Summary ---
Author Organization [facility] Address [facility] [place] [address] Care Team Providers Care Lead Custodian Name Role Phone Jesus Camacho MD Unavailable [phone] Jesus Camacho MD Unavailable [phone] Jesus Camacho MD Primary Care Provider [phone] Source Comments In the event this information is protected by the Federal Confidentiality of Alcohol and Drug AbusePatient Records regulations: The Federal rules restrict any use of the information to criminally investigate or prosecute any alcohol or drug abuse patient.[facility] Encounter Details Date Type Department Care Team (Late st Contact Info) Description 01/31/2024 Get Medical Advice [facility] [address] [place] [address] Jacky Pineda MD [address] [place] [address] MRI Social History Tobacco Use [...] risk 8 06/01/2023 Data from: https://www.neighborhoodatlas.medicine.[facility]/. Last address used for [...] 06/22/2025 2:20 PM EDT Office Visit Rheumatology [address] [place] [address] Zulema Mclean MD [address] [facility] [address] [place] [address] 6 month follow up documented as of this encounter Visit Diagnoses Not on filedocumented in this encounter Care Teams Lead Custodian Relationship Specialty Start Date End Date Jesus Camacho MD [address] [place] [address] PCP - General Family Medicine 05/12/23 Jesus Camacho MD Referring Family Medicine 01/14/21 Jesus Camacho MD [address] [place] [address] Referring Family Medicine 05/12/23 documented as of this encounter
--- OUTSIDE RECORDS SUMMARY | 2025-05-17 13:54 | XMS_ITS | Encounter Summary ---
Author Organization [facility] Address [address] [place] [address] Care Team Providers Care Inseamer Name Role Phone Jesus Camacho MD Unavailable [phone] Jesus aCmacho MD Unavailable [phone] Jesus Camacho MD Primary Care Provider [phone] Source Comments In the event this information is protected by the Federal Confidentiality of Alcohol and Drug AbusePatient Records regulations: The Federal rules restrict any use of the information to criminally investigate or prosecute any alcohol or drug abuse patient.[facility] Encounter Details Date Type Department Care Team (Late st Contact Info) Description 12/31/2022 Patient Msg Hematology [address] [place] [address] Provider, Ccf Dr. Mclean Appointment Social History Tobacco Use Types Packs/Day Years Used Date Smoking Tobacco: Former Smokeless Tobacco: Never PHQ-2 Answer Date Recorded PHQ-2 score 1 09/22/2022 Area Deprivation Index Answer Date Eliseo rded National Score (1-100), lower number is lower ri sk 90 09/29/2022 State Score (1-10), lower number is lower risk N ot on file 09/29/2022 Data from: https://www.neighborhoodatlas.medicine.[facility].edu/. Last address used for calculation [address] 09/29/2022 Comments No Sex and Gender [...] 06/22/2025 2:20 PM EDT Office Visit Rheumatology [address] [place] [address] Zulema Mclean MD [address] [facility] [address] [place], [place] [id number] 6 month follow up documented as of this encounter Visit Diagnoses Not on filedocumented in this encounter Care Teams Inseamer Relationship Specialty Start Date End Date Jesus Camacho MD [address] [place] [address] PCP - General Family Medicine 05/12/23 Jesus Camacho MD Referring Family Medicine 01/14/21 Jesus Camacho MD [address] [place] [address] Referring Family Medicine 05/12/23 documented as of this encounter
--- OUTSIDE RECORDS SUMMARY | 2025-05-17 13:54 | XMS_ITS | Encounter Summary ---
Author Organization [facility] Address [facility] [place] [address] Care Team Providers Care Galvanometer Assembler Name Role Phone Jesus Camacho MD Unavailable [phone] Jesus Camacho MD Unavailable [phone] Jesus Camacho MD Primary Care Provider [phone] Source Comments In the event this information is protected by the Federal Confidentiality of Alcohol and Drug AbusePatient Records regulations: The Federal rules restrict any use of the information to criminally investigate or prosecute any alcohol or drug abuse patient.[facility] Encounter Details Date Type Department Care Team (Late st Contact Info) Description 10/08/2023 Get Medical Advice [facility] [address] [place] [address] Jacky Pineda MD [address] [place] [address] Eye problems Social History Tobacco [...] is lower risk 8 06/01/2023 Data from: https://www.neighborhoodatlas.medicine.[facility]/. Last address used for [...] 06/22/2025 2:20 PM EDT Office Visit Rheumatology [address] [place] [address] Zulema Mclean MD [address] [facility] [address] [place] [address] 6 month follow up documented as of this encounter Visit Diagnoses Not on filedocumented in this encounter Care Teams Galvanometer Assembler Relationship Specialty Start Date End Date Jesus Camacho MD [address] [place] [address] PCP - General Family Medicine 05/12/23 Jesus Camacho MD Referring Family Medicine 01/14/21 Jesus Camacho MD [address] [place] [address] Referring Family Medicine 05/12/23 documented as of this encounter
--- OUTSIDE RECORDS SUMMARY | 2025-05-17 13:54 | XMS_ITS | Encounter Summary ---
Author Organization [facility] Address [facility] [place] [address] Care Team Providers Care Insulation Installer Name Role Phone Jesus Camacho MD Unavailable [phone] Jesus Camacho MD Unavailable [phone] Jesus Camacho MD Primary Care Provider [phone] Source Comments In the event this information is protected by the Federal Confidentiality of Alcohol and Drug AbusePatient Records regulations: The Federal rules restrict any use of the information to criminally investigate or prosecute any alcohol or drug abuse patient.[facility] Encounter Details Date Type Department Care Team (Late st Contact Info) Description 02/07/2024 Get Medical Advice [facility] [address] [place] [address] Jacky Pineda MD [address] [place] [address] Appointments Social History Tobacco Use [...] risk 8 06/01/2023 Data from: https://www.neighborhoodatlas.medicine.[facility]/. Last address used for calculation [...] 06/22/2025 2:20 PM EDT Office Visit Rheumatology [address] [place] [address] Zulema Mclean MD [address] [facility] [address] [place] [address] 6 month follow up documented as of this encounter Visit Diagnoses Not on filedocumented in this encounter Care Teams Insulation Installer Relationship Specialty Start Date End Date Jesus Camacho MD [address] [place] [address] PCP - General Family Medicine 05/12/23 Jesus Camacho MD Referring Family Medicine 01/14/21 Jesus Camacho MD [address] [place] [address] Referring Family Medicine 05/12/23 documented as of this encounter
--- OUTSIDE RECORDS SUMMARY | 2025-05-17 13:54 | XMS_ITS | Encounter Summary ---
Author Organization [facility] Address [address] [place], [place] [address] Care Team Providers Care Gang Worker Name Role Phone Jesus Camacho MD Unavailable [phone] Jesus Camacho MD Unavailable [phone] Jesus Camacho MD Primary Care Provider [phone] Source Comments In the event this information is protected by the Federal Confidentiality of Alcohol and Drug AbusePatient Records regulations: The Federal rules restrict any use of the information to criminally investigate or prosecute any alcohol or drug abuse patient.[facility] Reason for Referral * Consult, Test, Treat (Routine) - Closed Specialty Diagnoses / Procedures Referred By Contrahul t Referred To Contact Diagnoses Intracranial meningioma (HCC) Preop testing Procedures OFFICE/OUTPATIENT NEW HIGH MDM 60 MINUTES Jacky Pineda MD [address] [place] [address] Phone: tel: fax: Referral ID Status Reason Start Date Expiration Date V isits Requested Visits Authorized [id number] Closed PCP Requested Referral 01/13/2025 01/13/2026 1 1 * MRI/CT (Routine) - Closed Specialty Diagnoses / Procedures Referred By Tati gonzalez Referred To Contact MR IMAGING Diagnoses Intracranial meningioma (HCC) Preop testing Procedures MRI BRAIN WO/W IVCON MRI BRAIN BRAIN STEM W/O W/CONTRAST MATERIAL Jacky Pineda MD [address] [place] [address] Phone: tel: fax: MR IMAGING [place] [address] Referral ID Status Reason Start Date Expiration Date V isits Requested Visits Authorized [id number] Closed Auto-Generate d Referral 02/10/2025 09/13/2025 1 1 Encounter Details Date Type Department Care Team (Late st Contact Info) Description 01/13/2025 Cure Form [facility] [address] [place] [id number] Shakila Phillips, RN [address] [place] [address] Intracranial meningioma (HCC) (Primary Dx); Preop testing [...] is lower risk 8 06/01/2023 Data from: https://www.neighborhoodatlas.medicine.[facility].edu/. Last address used for calculation [address] [...] 06/22/2025 2:20 PM EDT Office Visit Rheumatology [address] [place] [address] Zulema Mclean MD [address] [place] [address] 6 month follow up Scheduled Orders Name [...] exam in November 2015. No acute abnormalities. Anesthesia Technician: PSCB Transcribe Date/Time: Feb 14 2025 10:01A Dictated by : SEAN BLOCK MD This examination was interpreted and the report reviewed and electronically signed by: SEAN BLOCK MD on Feb 14 2025 10:22AM EST Narrative 02/14/2025 10:37 AM EDT * * *Final Report* * * DATE OF EXAM: Feb 14 2025 10:37AM [facility] 0295 - MRI BRAIN WO/W IVCON [...] tissue mass extending into the of the crew leader or parapharyngeal spaces. The soft tissue planes of the, retropharyngeal, and prevertebral spaces are maintained. The visualized parotid glands are normal in appearance. Nasopharynx/Oropharynx: The nasopharynx and oropharynx are normal in appearance. Procedure Note Provider, [facility] - 02/14/2025 * * *Final Report* * * DATE OF EXAM: Feb 14 2025 10:37AM [facility] 0295 - MRI BRAIN WO/W IVCON [...] tissue mass extending into the of the crew leader or parapharyngeal spaces. The soft tissue planes [...] exam in November 2015. No acute abnormalities. Anesthesia Technician: GUANACO Transcribe Date/Time: Feb 14 2025 10:01A [...] CEPHEID GENEXPERT COVID19 02/14/2025 10:17 PM EDT [facility] Swab POSTERIOR NARES / Unknown Non Blood / Unknown 02/14/2025 8:19 AM EDT 02/14/2025 8:20 AM EDT Jacky Pineda MD LABORATORY Final Result Performing Organization Address [facility] Co de Phone Number [facility] [address] [facility] [address] [place] [address], * TYPE AND SCREEN,30 DAY (02/14/2025 8:19 [...] BLOOD BANK Final Result Performing Organization Address City/[facility] Co de Phone Number MAIN BLOOD BANK [address] [facility] [address] [place] [address], [place] documented in this encounter Visit Diagnoses Diagnosis Intracranial meningioma (HCC)- Primary Benign neoplasm of cerebral meninges Preop testing Preoperative examination, unspecified Intracranial meningioma (HCC) Benign neoplasm of cerebral meninges Preop testing Preoperative examination, unspecified documented in this encounter Care Teams Gang Worker Relationship Specialty Start Date End Date Jesus Camacho MD [address] [place] [address] PCP - General Family Medicine 05/12/23 Jesus Camacho MD Referring Family Medicine 01/14/21 Jesus Camacho MD [address] [place] [address] Referring Family Medicine 05/12/23 documented as of this encounter
--- OUTSIDE RECORDS SUMMARY | 2025-05-17 13:54 | XMS_ITS | Encounter Summary ---
Author Organization [facility] Address [address] [place] [address] Care Team Providers Care Intelligence Agent Name Role Phone Jesus Camacho MD Unavailable [phone] Jesus Camacho MD Unavailable [phone] Jesus Camacho MD Primary Care Provider [phone] Source Comments In the event this information is protected by the Federal Confidentiality of Alcohol and Drug AbusePatient Records regulations: The Federal rules restrict any use of the information to criminally investigate or prosecute any alcohol or drug abuse patient.[facility] Encounter Details Date Type Department Care Team (Late st Contact Info) Description 11/30/2023 Patient Msg Rheumatology [address] [place] [address] Provider, [facility] Eye exam Social [...] 8 06/01/2023 Data from: https://www.neighborhoodatlas.medicine.[facility]/. Last address used for calculation [address] 06/01/2023 Comments No Sex and [...] 06/22/2025 2:20 PM EDT Office Visit Rheumatology [address] [place] [address] Zulema Mclean MD [address] [facility] [address] [place] [address] 6 month follow up documented as of this encounter Visit Diagnoses Not on filedocumented in this encounter Care Teams Intelligence Agent Relationship Specialty Start Date End Date Jesus Camacho MD [address] [place] [address] PCP - General Family Medicine 05/12/23 Jesus Camacho MD Referring Family Medicine 01/14/21 Jesus Camacho MD [address] [place] [address] Referring Family Medicine 05/12/23 documented as of this encounter
--- OUTSIDE RECORDS SUMMARY | 2025-05-17 13:54 | XMS_ITS | Encounter Summary ---
Author Organization [facility] Address [facility] [place] [address] Care Team Providers Care Floral Arranger Name Role Phone Jesus Camacho MD Unavailable [phone] Jesus Camacho MD Unavailable [phone] Jesus Camacho MD Primary Care Provider [phone] Source Comments In the event this information is protected by the Federal Confidentiality of Alcohol and Drug AbusePatient Records regulations: The Federal rules restrict any use of the information to criminally investigate or prosecute any alcohol or drug abuse patient.[facility] Encounter Details Date Type Department Care Team (Late st Contact Info) Description 12/30/2024 Get Medical Advice [facility] [address] [place] [address] Jacky Pineda MD [address] [place] [address] Eye test results Social History [...] risk 8 06/01/2023 Data from: https://www.neighborhoodatlas.medicine.[facility]/. Last address used for calculation [address] [...] 06/22/2025 2:20 PM EDT Office Visit Rheumatology [address] [place] [address] Zulema Mclean MD [address] [facility] [address] [place] [address] 6 month follow up documented as of this encounter Visit Diagnoses Not on filedocumented in this encounter Care Teams Floral Arranger Relationship Specialty Start Date End Date Jesus Camacho MD [address] [place] [address] PCP - General Family Medicine 05/12/23 Jesus Camacho MD Referring Family Medicine 01/14/21 Jesus Camacho MD [address] [place] [id number] Referring Family Medicine 05/12/23 documented as of this encounter
--- OUTSIDE RECORDS SUMMARY | 2025-05-17 13:54 | XMS_ITS | Encounter Summary ---
Author Organization [facility] Address [address] [place] [address] Care Team Providers Care Food Sales Clerk Name Role Phone Jesus Camacho MD Unavailable [phone] Jesus Camacho MD Unavailable [phone] Jesus Camacho MD Primary Care Provider [phone] Source Comments In the event this information is protected by the Federal Confidentiality of Alcohol and Drug AbusePatient Records regulations: The Federal rules restrict any use of the information to criminally investigate or prosecute any alcohol or drug abuse patient.[facility] Encounter Details Date Type Department Care Team (Late st Contact Info) Description 04/01/2025 Get Medical Advice [facility] [address] [place] [id number] Jacky Pineda MD [address] [place] [address] Incision Social History Tobacco Use [...] is lower risk 8 06/01/2023 Data from: https://www.neighborhoodatlas.medicine.[facility]/. Last address used [...] 06/22/2025 2:20 PM EDT Office Visit Rheumatology [address] [place] [address] Zulema Mclean MD [address] [facility] [address] [place] [address] 6 month follow up documented as of this encounter Visit Diagnoses Not on filedocumented in this encounter Care Teams Food Sales Clerk Relationship Specialty Start Date End Date Jesus Camacho MD [address] [place] [address] PCP - General Family Medicine 05/12/23 Jesus Camacho MD Referring Family Medicine 01/14/21 Jesus Camacho MD [address] [place] [address] Referring Family Medicine 05/12/23 documented as of this encounter
--- OUTSIDE RECORDS SUMMARY | 2025-05-17 13:54 | XMS_ITS | Encounter Summary ---
Author Organization [facility] Address [place] [address] Care Team Providers Care Recorder Of Deeds Name Role Phone Jesus Camacho MD Unavailable [phone] Jesus Camacho MD Unavailable [phone] Jesus Camacho MD Primary Care Provider [phone] Source Comments In the event this information is protected by the Federal Confidentiality of Alcohol and Drug AbusePatient Records regulations: The Federal rules restrict any use of the information to criminally investigate or prosecute any alcohol or drug abuse patient.[facility] Encounter Details Date Type Department Care Team (Late st Contact Info) Description 01/03/2025 Get Medical Advice [facility] [address] [place] [address] Jacky Pineda MD [address] [place] [address] Testing Social History Tobacco Use [...] is lower risk 8 06/01/2023 Data from: https://www.neighborhoodatlas.medicine.[facility]/. Last address used for calculation [address] [...] 06/22/2025 2:20 PM EDT Office Visit Rheumatology [address] [place] [address] Zulema Mclean MD [address] [facility] [address] [place] [address] 6 month follow up documented as of this encounter Visit Diagnoses Not on filedocumented in this encounter Care Teams Recorder Of Deeds Relationship Specialty Start Date End Date Jesus Camacho MD [address] [place] [address] PCP - General Family Medicine 05/12/23 Jesus Camacho MD Referring Family Medicine 01/14/21 Jesus Camacho MD [address] [place] [address] Referring Family Medicine 05/12/23 documented as of this encounter
--- OUTSIDE RECORDS SUMMARY | 2025-05-17 13:54 | XMS_ITS | Encounter Summary ---
Author Organization [facility] Address [facility] [place] [address] Care Team Providers Care Mud Logger Name Role Phone Jesus Camacho MD Unavailable [phone] Jesus Camacho MD Unavailable [phone] Jesus Camacho MD Primary Care Provider [phone] Source Comments In the event this information is protected by the Federal Confidentiality of Alcohol and Drug AbusePatient Records regulations: The Federal rules restrict any use of the information to criminally investigate or prosecute any alcohol or drug abuse patient.[facility] Encounter Details Date Type Department Care Team (Late st Contact Info) Description 12/14/2024 Get Medical Advice [facility] [address] [place] [address] Jacky Pineda MD [address] [place] [address] MRI Social History Tobacco Use [...] is lower risk 8 06/01/2023 Data from: https://www.neighborhoodatlas.medicine.[facility]/. Last address used for [...] 06/22/2025 2:20 PM EDT Office Visit Rheumatology [address] [place] [address] Zulema Mclean MD [address] [facility] [address] [place] [address] 6 month follow up documented as of this encounter Visit Diagnoses Not on filedocumented in this encounter Care Teams Mud Logger Relationship Specialty Start Date End Date Jesus Camacho MD [address] [place] [address] PCP - General Family Medicine 05/12/23 Jesus Camacho MD Referring Family Medicine 01/14/21 Jesus Camacho MD [address] [place] [address] Referring Family Medicine 05/12/23 documented as of this encounter
--- OUTSIDE RECORDS SUMMARY | 2025-05-17 13:54 | XMS_ITS | Encounter Summary ---
Author Organization [facility] Address [facility] [place] [address] Care Team Providers Care Hydrologic Modeler Name Role Phone Jesus Camacho MD Unavailable [phone] Jesus Camacho MD Unavailable [phone] Jesus Camacho MD Primary Care Provider [phone] Source Comments In the event this information is protected by the Federal Confidentiality of Alcohol and Drug AbusePatient Records regulations: The Federal rules restrict any use of the information to criminally investigate or prosecute any alcohol or drug abuse patient.[facility] Encounter Details Date Type Department Care Team (Late st Contact Info) Description 12/14/2024 Get Medical Advice [facility] [address] [place] [address] Jacky Pineda MD [address] [place] [address] Eye test Social History Tobacco [...] is lower risk 8 06/01/2023 Data from: https://www.neighborhoodatlas.medicine.[facility]/. Last [facility] used for calculation [address] [facility] Comments No Sex and [...] 06/22/2025 2:20 PM EDT Office Visit Rheumatology [address] [place] [address] Zulema Mclean MD [address] [facility] [address] [place] [address] 6 month follow up documented as of this encounter Visit Diagnoses Not on filedocumented in this encounter Care Teams Hydrologic Modeler Relationship Specialty Start Date End Date Jesus Camacho MD [address] [place] [address] PCP - General Family Medicine 05/12/23 Jesus Camacho MD Referring Family Medicine 01/14/21 Jesus Camacho MD [address] [place] [address] Referring Family Medicine 05/12/23 documented as of this encounter
--- NOTE | 2025-05-17 13:55 | XR_ITS ---
The [address] [address] Patient Name: DEON PICHARDO MRN: [id number] date: 1975 Sex: F Assigned Patient Location: [facility] Current Patient Location: [facility] Accession/Order Number: [id number] Exam Date: 05/17/2025 14:05 Report Date: 05/17/2025 15:07 At the request of: AMANDA STARR NP Procedure: XR thoracic spine 2V THORACIC SPINE - - 2 views CLINICAL HISTORY: Thoracic Radiculopathy COMPARISON: None FINDINGS: Bones are grossly demineralized. Vertebral body heights appear maintained. Endplate degenerative changes. Mild scoliosis. Pedicles appear intact. XR/XR thoracic spine 2V IMPRESSION: MILD SCOLIOSIS WITH DEGENERATIVE CHANGE. NO ACUTE BONY PROCESS IS SEEN. Impression dictated by: Lukasz Santana Jr.OEstefany 05/17/2025 3:07 PM Dictation Location: [place] [address] Electronically authenticated by: [id number] Y Date: 05/17/2025 15:07
--- OUTSIDE RECORDS SUMMARY | 2025-05-17 18:33 | XMS_ITS | CCD ---
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 Name Role Phone PHYSICIAN, DEFAULT Unavailable Unavailable PHYSICIAN, DEFAULT Unavailable Unavailable Sammie Gonzalez MD Unavailable Beti Bowles Unavailable Elyssa Gomes Unavailable MD Sammie Gonzalez Primary Care Provider [phone] HUMAIRA Cummings Attending Provider [phone] MD Sammie Gonzalez Attending Provider MD Elyssa [...] Care Provider MD Russell Shields Attending Provider [phone] MD Sammie Gonzalez Attending Provider Hank ([facility])MARILEE Attending Provider Sammie Gonzalez MD Unavailable [...] Attending Provider Mk Broderick MD Attending Provider [phone] Sammie Gonzalez MD Attending Provider [phone] Sammie Gonzalez MD Primary Care Provider [phone] Elyssa Gomes MD Attending Provider Sammie Gonzalez MD Primary Care Provider [phone] [...] Attending Provider Sammie Gonzalez MD Attending Provider [phone] [facility] Attending Unavaila Sammie Sanon MD Primary Care Unavailable Hank [facility] ASHER Unavailable Unavaila ble PINEDAERIK F Attending Unavailable HOY, SAMMIE M Primary Care Unavailable HOY, SAMMIE M Primary Care Unavailable MEHUL MARTIN Referring Unavailable PINEDA, ERIK F Referring Unavailable HOY, SAMMIE M Primary Care Unavailable ZEINAB WOOD Referring Unavailable HOY, SAMMIE M Primary Care Unavailable HOY, SAMMIE M Primary Care Unavailable PINDEA, ERIK F Admitting Unavailable PINEDA, ERIK F [...] four times daily as needed for headache sljmmzfdke-lzpohzqtbkwgr-dhrhseld 50-325-40 MG tablet TAKE 1 TABLET BY [...] ORAL) Active take 1 capsule by mo [facility] three times daily as needed Tessalon Perles [...] Comment on above: Take 1 capsule by [facility] twice daily. Dexlansoprazole (Dexilant) 60 mg capsule,biphase delayed releas (20 sources) Start: 10-10-19 take 1 capsule by mouth twice daily Dexlansoprazole (Dexilant) 60 mg capsule,biphase delayed releas Active 60 MG PO Twice daily October 10, 2021 12:00am Start: 10-10-2021 take 1 capsule by [facility] twice daily Dexlansoprazole (Dexilant) [...] daily. docusate sodium 50 mg / sennosides, assisted 8.6 mg oral tablet (16 sources) Start: [...] with drug therapy take 1 capsule by [facility] every twenty-four hours Doxepin [...] on above: Take 1 capsule by mo [facility] once daily. TAKE 1 CAPSULE BY [facility] EVERY DAY etodolac 400 mg oral tablet [...] inhalation every six hours as needed Ipratropium [place] 0.02 % Solution Active 0.5 MG INHALATION Q6H as needed for Shortness Of Breath September 11, 2020 1:00am Complies with drug therapy Start: 09-11-2020 take 0.5 mg by inhal ation every six hours Ipratropium [place] Active 0.5 MG INHALATION Q6H September 11, [...] 12, 2017 1:00am take 1 tablet by [facility] every twenty-four hours lamoTRIgine 200 MG [...] Active Start: 10-28-2018 take 1 capsule by [facility] twice daily Lubiprostone (Amitiza) 24 mcg capsule Active 24 MCG PO Twice daily October 28, 2018 12:00am Start: 10-28-2018 take 1 capsule by [facility] twice daily Lubiprostone (Amitiza) 24 mcg capsule Active 24 MCG PO Twice daily October 28, 2018 1:00am take 1 capsule by [facility] twice daily at mealtime [...] 06/19/2022 Active take 1 capsule by mo [facility] every twenty-four hours Lyrica 100 MG 1 [...] with drug therapy [facility] Daliresp 500 MCG 1 [...] Start: 04-11-2022 take 2 tablets by mo [facility] once daily at bedtime tiZANidine (Zanaflex) 4 [...] 18, 2021 October 02, 2021 4:22am amylase 830156 unt / lipase 84705 unt / protease 18192 unt delayed release oral capsule (20 sources) Start: 09-12-2017 End: 10-28-2018 take 89384-51689 capsules by mouth three times daily Qmnjal-Mbxrtxwq-Ab ylase (Creon) 24,000-76,000 -120,000 unit capsule,delayed release(DR/EC) [...] Test Name Value Interpretation Reference Range Facility [facility] 03-15-2025 CNOV Office Visit (NSCAMN ) KOURTNEY NOVAK ([id number]) 1975 F Date Time Provider Department 03/15/25 12:00 PM FELLOW APPOINTMENTS [facility] During your visit today, we recorded the following information about you: Pulse Respiration Blood pressure Weight 82/minute 18/minute 156/79 111.3 kg Yuly Do MA 03/15/2025 12:44 PM Signed Additional intake questions: Has the patient had fever, nausea, vomiting, diarrhea, constipation, fatigue for > 1 week? No Does the patient have a decreased appetite? No Does patient want to see a Well Logger? No (yes to any of above refer [...] and [facility] AND [facility] [place], [facility] CC: Patient Care Team: Sammie Gonzalez [...] changes. PLAN: - [facility]. - Bactrim DS x 5 [...] pioglitazone (A (more content not included)... Normal [facility] KOURTNEY NOVAK ([id number]) 1975 F Date Time Provider Department 03/08/25 MARIO ALBERTO PHILLIPS [facility] During your visit today, we [...] by MARIO ALBERTO PHILLIPS on 03/08/25 Normal [facility] CNNURSEon 03-06-2025 CNNURSE Nurse Visit (NSCAMN) KOURTNEY NOVAK ([id number]) 1975 F Date Time Provider Department 03/06/25 [...] No Does patient want to see a Well Logger? No (yes to any of above refer [...] request and reach out to her through [employer] end with a reply. Mario Alberto Phillips RN, Veterinary Livestock Inspector Allergies As of Date: 03/06/2025 (No Known [...] 24 mcg (more content not included)... Normal [facility] Kathy 02-23-2025 KIRTI Telephone ([facility]) KOURTNEY NOVAK ([id number]) 1975 F Date Time Provider Department 02/23/25 MARIO ALBERTO PHILLIPS [facility] During your visit today, we recorded the [...] Reviewed med list and sent patient a [employer] message for alternating Ibuprofen and Tylenol for headache/pain as needed Confirmed postop appointments Patient was made aware to reach out for questions/ concerns/updates. Mario Alberto Phillips RN, Veterinary Livestock Inspector Allergies As of Date: 02/23/2025 (No Known [...] by MARIO ALBERTO PHILLIPS on 02/23/25 Normal [facility] ALLIED HEALTH 02-22-2025 ALLIED HEALTH HNO ID: [id number] Author: ANNALISA ENRIQUEZ Chaplain Service: Spiritual Care Author Type: Milieu Technician Type: Allied Health Filed: 02/22/2025 15:39 Note Text: SPIRITUALCARE Spiritual Care Visit- Brief Note Name: Kourtney Novak Date: February 22, 2025 Notes: The photographer finish met with the patient's family at the bedside, introducing himself and providing information about the availability of spiritual care services. The patient expressed gratitude for the visit but declined any support for the moment. Follow-up will be provided as circumstances allow. [place] [phone]. Milieu Technician services are available 06/04. SIGNATURE: Chaplain Hiro PATIENT NAME: Kourtney Novak DATE: February 22, 2025 TIME: 3:39 PM This is an electronically created document. IF PRINTED, PLEASE DO NOT REMOVE FROM THE CHART OR MODIFY PRINTED COPY. Normal [facility] CNDSon 02-22-2025 CNDS HNO ID: [id number] Author: ERIK PINEDA MD Service: Neurosurgery Author [...] M.D. - Office PCP: Sammie Gonzalez MD [phone] Treatment Team: Attending Provider: Erik Pineda MD [...] The patient was electively admitted to the [facility]. After being optimized for surgery by the [...] The patient was then transferred up to [place] [address]/[id number] hospital room for postoperative management. Patient was [...] Information Primary Emergency Contact: Christiano Saini Address: [address] [place] [address] Mobile Relation: Son Secondary Emergency Contact: Laith Saini Address: [address] [place] [address] Mobile Relation: Son ALLERGIES: ALLERGIES No Known Allergies HOME MEDICATIONS: Medication List START taking these medications acetaminophen 325 mg tablet Commonly known as: TYLENOL 2 tablets by ORAL/FEEDING TUBE rou (more content not included)... Normal [facility] THERAPY NTon 02-22-2025 THERAPY NT HNO ID: [id number] Author: OLIVIA WOLFF PT Service: Physical Therapy Author Type: Physical Therapist Type: Therapy (PT/OT/Speech/Resp) Filed: 02/22/2025 13:12 Note Text: PHYSICAL THERAPY MISSED VISIT SERVICE DATE: 02/22/2025 SERVICE TIME: 1140 ROOM: [place] [address] Patient not seen due to Declined to Participate. Pt denies concerns for home going, declines stair training before d/c. No further acute PT needs, all concerns addressed. PT to sign off. 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 Denies falls. Lives with adult [...] daily living (ADL) TREATMENT INTERVENTIONS Evaluation, Self Long-Term Management (53710) Timed Code Treatment (minutes): 8 Skilled Treatment Time (minutes): 23 TRAINING AND EDUCATION PROVIDED Activity Adaptation/Compensato ry Strategies, Benefits of In-Hospital Mobility, Disease Specific Education, Discharge Planning, Expected Functional Level, Functional Mobility Involving ADLs, Lower Extremity Dressing, Pain Management, Precautions/Restricti ons, Role of Occupational Therapy, Standing Balance to Improve [place] with ADLs/Self-Care, Transfer - Sit to Stand, [...] February 22, 2025 TIME: 11:36 AM Normal [facility] HNO ID: [id number] Author: TIM ALTAMIRANO Student Service: Spiritual Care [...] THE CHART OR MODIFY PRINTED COPY. Normal [facility] ALLIED [facility] HNO ID: [id number] Author: TRIPP DALLAS RT(R) Service: Radiology Author Type: Mailroom Courier Type: Allied Health Filed: 02/21/2025 10:15 Note [...] PATIENT PRESENTS WITH AN IMPLANTABLE OR ATTACHED ROAD INSPECTOR: No RADIOLOGY DEPARTMENT: MR; Exam(s) Completed: Head: Routine Brain. Lavender Administered: Yes PERIPHERAL IV DATA: Inpatient: see LDA documentation SIGNED BY: RT Kenneth(R) February 21, 2025 9:22 AM Normal [facility] Basic metabolic 2000 panelon 02-21-2025 Anion gap [Moles/Vol] 13 mmol/L Normal 8-15 [facility] Comment on above: Order Comment: Speci men Type: BLOOD SPECIMENOrdering Facility: [facility] Address: [address] [place] [address] Performed By: #### 2 4321-2 ####[facility] LABCLIA [id number] [place] [id number] [place] Calcium [Mass/Vol] 8.8 mg/dL Normal 8.5-10.2 [facility] Comment on above: Order Comment: Speci men Type: BLOOD SPECIMENOrdering Facility: [facility] Address: [address] [place] [address] Performed By: #### 2 4321-2 ####[facility] LABCLIA [id number] [place] [id number] [place] Chloride [Moles/Vol] 105 mmol/L Normal 98-107 [facility] Comment on above: Order Comment: Speci men Type: BLOOD SPECIMENOrdering Facility: [facility] Address: [address] [place] [address] Performed By: #### 2 4321-2 ####[facility] LABCLIA [id number] [place] [id number] [place] CO2 [Moles/Vol] 20 mmol/L Low 22-30 [facility] Comment on above: Order Comment: Speci men Type: BLOOD SPECIMENOrdering Facility: [facility] Address: [address] [place] [address] Performed By: #### 2 4321-2 ####[facility] LABCLIA [id number] [place] [id number] [place] Creatinine [Mass/Vol] 0.75 mg/dL Normal 0.58-0.96 [facility] Comment on above: Order Comment: Speci men Type: BLOOD SPECIMENOrdering Facility: [facility] Address: [address] [place] [address] Performed By: #### 2 4321-2 ####[facility] LABIA [id number] [place] [address] [place] Creatinine and Glomerular filtration rate.predicted panel (S/P/Bld) 99 mL/min/1.73m??? Normal >=60 [facility] Comment on above: Order Comment: Speci men Type: BLOOD SPECIMENOrdering Facility: [facility] Address: [address] [place] [address] Result Comment: Heather mated Glomerular Filtration Rate [...] actual GFR. Performed By: #### 2 4321-2 ####[facility] LABIA [id number] [place] [address] [place] Glucose [Mass/Vol] 131 mg/dL High 74-99 [facility] Comment on above: Order Comment: Harshaldamien sonja Type: BLOOD SPECIMENOrdering Facility: [facility] Address: [address] [place] [address] Result Comment: The [place] Diabetes Association (ADA) provides guidance for cutoff [...] Standards of Medical Care in Diabetes 2016, [place] [employer]. Diabetes Care. 2016.39(Suppl 1). Performed By: #### 2 4321-2 ####[facility] LABCLIA [id number] [place] [id number] [place] Potassium [Moles/Vol] 4.2 mmol/L Normal 3.7-5.1 [facility] Comment on above: Order Comment: Speci men Type: BLOOD SPECIMENOrdering Facility: [facility] Address: [address] [place] [address] Performed By: #### 2 4321-2 ####[facility] LABCLIA [id number] [place] [address] [place] Sodium [Moles/Vol] 138 mmol/L Normal 136-144 [facility] Comment on above: Order Comment: Speci men Type: BLOOD SPECIMENOrdering Facility: [facility] Address: [address] [place] [address] Performed By: #### 2 4321-2 ####[facility] LABIA [id number] [place] [address] [place] Urea nitrogen [Mass/Vol] 8 mg/dL Normal 7-21 [facility] Comment on above: Order Comment: Speci men Type: BLOOD SPECIMENOrdering Facility: [facility] Address: [address] [place] [address] Performed By: #### 2 4321-2 ####[facility] LABIA [id number] [place] [id number] [place] CBC W Auto Differential pane l (Bld)on 02-21-2025 Basophils (Bld) [#/Vol] 10*3/uL Normal <0.11 C [facility] Comment on above: Order Comment: Speci men Type: BLOOD SPECIMENOrdering Facility: [facility] Address: [address] [place] [address] Performed By: #### 5 7021-8 ####[facility] LABIA [id number] [place] [address] [place] Basophils/100 WBC (Bld) 0.1 % Normal [facility] Comment on above: Order Comment: Speci men Type: BLOOD SPECIMENOrdering Facility: [facility] Address: [address] [place] [address] Performed By: #### 5 7021-8 ####[facility] LABCLIA [id number] [facility] [place] [address] [place] Differential cell count method Nom (Bld) Auto Normal [facility] Comment on above: Order Comment: Speci men Type: BLOOD SPECIMENOrdering Facility: [facility] Address: [address] [place] [address] Performed By: #### 5 7021-8 ####[facility] LABCLIA [id number] [place] [address] [place] Eosinophils (Bld) [#/Vol] 10*3/uL Normal <0.46 [facility] Comment on above: Order Comment: Speci men Type: BLOOD SPECIMENOrdering Facility: [facility] Address: [address] [place] [address] Performed By: #### 5 7021-8 ####[facility] LABCLIA [id number] [address] STATES OF [facility] Eosinophils/100 WBC (Bld) 0.0 % Normal [facility] Comment on above: Order Comment: Speci men Type: BLOOD SPECIMENOrdering Facility: [facility] Address: [address] [place] [address] Performed By: #### 5 7021-8 ####[facility] LABCLIA [id number] [place] [address] [place] Erythrocyte distribution width (RBC) [Ratio] 13.2 % Normal 11.5-15.0 [facility] Comment on above: Order Comment: Speci men Type: BLOOD SPECIMENOrdering Facility: [facility] Address: [address] [place] [address] Performed By: #### 5 7021-8 ####[facility] LABIA [id number] [place] [address] [place] Hematocrit (Bld) [Volume fraction] 34.6 % Low 36.0-46.0 [facility] Comment on above: Order Comment: Speci men Type: BLOOD SPECIMENOrdering Facility: [facility] Address: [address] [place] [address] Performed By: #### 5 7021-8 ####[facility] LABIA [id number] [place] [address] [place] Hemoglobin (Bld) [Mass/Vol] 11.2 g/dL Low 11.5-15.5 [facility] Comment on above: Order Comment: Speci men Type: BLOOD SPECIMENOrdering Facility: [facility] Address: [address] [place] [address] Performed By: #### 5 7021-8 ####[facility] LABIA [id number] [place] [address] [place] Immature granulocytes (Bld) [#/Vol] 0.05 10*3/uL Normal <0.10 [facility] Comment on above: Order Comment: Speci men Type: BLOOD SPECIMENOrdering Facility: [facility] Address: [address] [place] [address] Performed By: #### 5 7021-8 ####[facility] LABIA [id number] [place] [address] [place] Immature granulocytes/100 WBC (Bld) 0.4 % Normal [facility] Comment on above: Order Comment: Speci men Type: BLOOD SPECIMENOrdering Facility: [facility] Address: [address] [place] [address] Performed By: #### 5 7021-8 ####[facility] LABIA [id number] [place] [address] [place] Lymphocytes (Bld) [#/Vol] 0.87 10*3/uL Low 1.00-4.00 [facility] Comment on above: Order Comment: Speci men Type: BLOOD SPECIMENOrdering Facility: [facility] Address: [address] [place] [address] Performed By: #### 5 7021-8 ####[facility] LABIA [id number] [place] [address] [place] Lymphocytes/100 WBC (Bld) 6.8 % Normal [facility] Comment on above: Order Comment: Speci men Type: BLOOD SPECIMENOrdering Facility: [facility] Address: [address] [place] [address] Performed By: #### 5 7021-8 ####[facility] LABIA [id number] [place] [address] [place] MCH (RBC) [Entitic mass] 29.7 pg Normal 26.0-34.0 [facility] Comment on above: Order Comment: Speci men Type: BLOOD SPECIMENOrdering Facility: [facility] Address: [address] [place] [address] Performed By: #### 5 7021-8 ####[facility] LABIA [id number] [place] [address] [place] MCHC (RBC) [Mass/Vol] 32.4 g/dL Normal 30.5-36.0 [facility] Comment on above: Order Comment: Speci men Type: BLOOD SPECIMENOrdering Facility: [facility] Address: [address] [place] [address] Performed By: #### 5 7021-8 ####[facility] LABIA [id number] [place] [address] [place] MCV (RBC) [Entitic vol] 91.8 fL Normal 80.0-100.0 C [facility] Comment on above: Order Comment: Speci men Type: BLOOD SPECIMENOrdering Facility: [facility] Address: [address] [place] [address] Performed By: #### 5 7021-8 ####[facility] LABCLIA [id number] [address], [place] [address] [place] Monocytes (Bld) [#/Vol] 0.94 10*3/uL High <0.87 [facility] Comment on above: Order Comment: Speci men Type: BLOOD SPECIMENOrdering Facility: [facility] Address: [address] [place] [address] Performed By: #### 5 7021-8 ####[facility] LABCLIA [id number] [address], [place] [address] [place] Monocytes/100 WBC (Bld) 7.3 % Normal [facility] Comment on above: Order Comment: Speci men Type: BLOOD SPECIMENOrdering Facility: [facility] Address: [address] [place] [address] Performed By: #### 5 7021-8 ####[facility] LABCLIA [id number] [address], [facility] [place] Neutrophils (Bld) [#/Vol] 10.95 10*3/uL High 1.45-7.50 [facility] Comment on above: Order Comment: Speci men Type: BLOOD SPECIMENOrdering Facility: [facility] Address: [address] [place] [address] Performed By: #### 5 7021-8 ####[facility] LABCLIA [id number] [address], [facility] [place] Neutrophils/100 WBC (Bld) 85.4 % Normal [facility] Comment on above: Order Comment: Speci men Type: BLOOD SPECIMENOrdering Facility: [facility] Address: [address] [place] [address] Performed By: #### 5 7021-8 ####[facility] LABCLIA [id number] [address] [place] [address] [place] Nucleated RBC (Bld) [#/Vol] 10*3/uL Normal <0.01 [facility] Comment on above: Order Comment: Speci men Type: BLOOD SPECIMENOrdering Facility: [facility] Address: [address] [place] [address] Performed By: #### 5 7021-8 ####[facility] LABCLIA [id number] [place] [address] [place] Nucleated RBC/100 WBC (Bld) [Ratio] 0.0 /100 WBC Normal [facility] Comment on above: Order Comment: Speci men Type: BLOOD SPECIMENOrdering Facility: [facility] Address: [address] [place] [address] Performed By: #### 5 7021-8 ####[facility] LABIA [id number] [place] [address] [place] Platelet mean volume (Bld) [Entitic vol] 10.5 fL Normal 9.0-12.7 [facility] Comment on above: Order Comment: Speci men Type: BLOOD SPECIMENOrdering Facility: [facility] Address: [address] [place] [address] Performed By: #### 5 7021-8 ####[facility] LABIA [id number] [place] [address] [place] Platelets (Bld) [#/Vol] 309 10*3/uL Normal 150-400 [facility] Comment on above: Order Comment: Speci men Type: BLOOD SPECIMENOrdering Facility: [facility] Address: [address] [place] [address] Performed By: #### 5 7021-8 ####[facility] LABIA [id number] [place] [address] [place] RBC (Bld) [#/Vol] 3.77 10*6/uL Low 3.90-5.20 [facility] Comment on above: Order Comment: Speci men Type: BLOOD SPECIMENOrdering Facility: [facility] Address: [address] [place] [address] Performed By: #### 5 7021-8 ####[facility] LABCLIA [id number] [place] [address] [place] WBC (Bld) [#/Vol] 12.82 10*3/uL High 3.70-11.00 [facility] Comment on above: Order Comment: Speci men Type: BLOOD SPECIMENOrdering Facility: [facility] Address: [address] [place] [address] Performed By: #### 5 7021-8 ####[facility] LABCLIA [id number] [place] [address] [place] MRI BRAIN WO/W IVCONon 02-21 MRI BRAIN WO/W IVCON * * *Final Report* * * DATE OF EXAM: Feb 21 2025 11:17AM [facility] 0295 - MRI BRAIN WO/W IVCON / PROCEDURE 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 No residual mass or pathologic enhancement. Drum Tester: GUANACO Transcribe Date/Time: Feb 21 2025 11:17A Dictated by : CHIKA RUBY MD This examination was interpreted and the report reviewed and electronically signed by: TOMAS TAMEZ MD on Feb 21 2025 11:58AM EST [id number] [facility] NURSING PROGon 02-21-2025 NURSING PROG HNO ID: [id number] Author: MICHELLE BAEZ RN Service: Nursing Author [...] Neri PATIENT DISCHARGED TO: Patient transferred to [facility]. Report called to RN. SIGNED BY: Michelle Baez RN February 21, 2025 10:07 AM [facility] NURSING PROG HNO ID: [id number] Author: MICHELLE BAEZ RN Service: Nursing Author [...] February 21, 2025 TIME: 9:09 AM [facility] NUTRITIONon 02-21-2025 NUTRITION HNO ID: [id number] Author: ZEINAB SUMMERS RD Service: Nutrition Therapy Author Type: Registered Dietitian Type: Nutrition Filed: 02/21/2025 17:21 Note Text: NUTRITION THERAPY SCREEN NOTE SERVICE DATE: 02/21/2025 SERVICE TIME: Start Time: 1305 Care Plan: Continue current diet (carb controlled) Refer to: [employer] to Follow Discharge Recommendations: Diet Diet: carb [...] (mins): 3 SIGNATURE:Zeinab Summers RDN, LD, MS, [facility] PATIENT NAME: Kourtney Novak DATE: February 21, 2025 TIME: 5:20 PM [facility] THERAPY NTon 02-21-2025 THERAPY NT HNO ID: [id number] Author: OLIVIA WOLFF, PT Service: Physical Therapy Author Type: Physical Therapist Type: Therapy (PT/OT/Speech/Resp) Filed: 02/21/2025 12:40 Note Text: Physical Therapy Evaluation Summary SERVICE DATE: 02/21/2025 SERVICE TIME: 1145 to 1208 ROOM: [place] [address] PT 6 Clicks Score: 20 DISCHARGE RECOMMENDATIONS [...] Pt reporting IND with ADLs and iADLs [employer]. 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 Denies falls. Lives with adult son and brother who both work and are IND in the home. SUBJECTIVE Agreeable to PT THERAPY DIAGNOSIS Reduced mobility-other TREATMENT INTERVENTIONS Evaluation, Gait Training (85820) Timed Code Treatment (minutes): 8 Skilled Treatment [...] for Next Visit: Continue per POC SIGNATURE: Olivia Wolff, PT PATIENT NAME: Kourtney Novak DATE: February 21, 2025 TIME: 12:40 PM [facility] ANES POSTPROC EVALon 025 ANES POSTPROC EVAL HNO ID: [id number] Author: PAULINO RAMACHANDRAN DO Service: ? Author Type: Anesthesiologist Type: Anesthesia Postprocedure Evaluation Filed: 02/20/2025 18:52 Note Text: POST ANESTHESIA EVALUATION NOTE : 1975 Procedure Summary Date: 02/20/25 Room / Location: [address] [facility] Anesthesia Start: 1221 Anesthesia [...] February 20, 2025 TIME: 6:17 PM CSN: [id number] [facility] ANES PRE-OPon 02-20-2025 ANES PRE-OP HNO ID: [id number] Author: PAULINO RAMACHANDRAN DO Service: ? Author [...] and consent discussed: yes. Patient / Responsible [employer] Party agrees to proceed: yes Patient / Surrogate [...] February 20, 2025 TIME: 12:10 PM CSN: [id number] [facility] ARTERIAL BLOOD GASES WITH IO NIZED MAGNESIUMon 02-20-2025 Base deficit (BldA) [Moles/Vol] -4 mmol/L Low -2-0 [facility] Comment on above: Order Comment: Speci men Type: ARTERIAL BLOOD SPECIMENOrdering Facility: [facility] Address: [address] [place] [address] Performed By: #### A LLMG ####[facility] [id number] [place] [address] [place] Calcium.ionized (Bld) [Mass/Vol] 1.11 mmol/L Normal 1.08-1.30 [facility] Comment on above: Order Comment: Speci men Type: ARTERIAL BLOOD SPECIMENOrdering Facility: [facility] Address: [address] [place] [address] Performed By: #### A LLMG ####[facility] [id number] [place] [address] [place] Calcium.ionized adjusted to pH 7.4 (BldA) [Moles/Vol] 1.12 mmol/L Normal 1.08-1.30 [facility] Comment on above: Order Comment: Speci men Type: ARTERIAL BLOOD SPECIMENOrdering Facility: [facility] Address: [address] [place] [address] Performed By: #### A LLMG ####[facility] [id number] [place] [address] [place] Carboxyhemoglobin (BldA) [Mass fraction] 0.6 % Normal 0.0-2.0 [facility] Comment on above: Order Comment: Speci men Type: ARTERIAL BLOOD SPECIMENOrdering Facility: [facility] Address: [address] [place] [address] Result Comment: Carb oxyhemoglobin Reference Range for Smokers: 2.0-8.0% Performed By: #### A LLMG ####[facility] [id number] [place] [address] [place] CO2 (Bld) [Partial pressure] 33 mm Hg Low 36-46 [facility] Comment on above: Order Comment: Speci men Type: ARTERIAL BLOOD SPECIMENOrdering Facility: [facility] Address: [address] [place] [address] Performed By: #### A LLMG ####[facility] LABCLIA [id number] [place] [address] [place] CO2 adjusted to patient's actual temperature (Bld) [Partial pressure] 33 mmHg Low 36-46 [facility] Comment on above: Order Comment: Speci men Type: ARTERIAL BLOOD SPECIMENOrdering Facility: [facility] Address: [address] [place] [address] Performed By: #### A LLMG ####[facility] LABCLIA [id number] [place] [address] [place] Glucose [Mass/Vol] 113 mg/dL High 60-105 [facility] Comment on above: Order Comment: Speci men Type: ARTERIAL BLOOD SPECIMENOrdering Facility: [facility] Address: [address] [place] [address] Performed By: #### A LLMG ####[facility] LABCLIA [id number] [place] [address] [place] HCO3 (Bld) [Moles/Vol] 20 mmol/L Low 22-26 [facility] Comment on above: Order Comment: Speci men Type: ARTERIAL BLOOD SPECIMENOrdering Facility: [facility] Address: [address] [place] [address] Performed By: #### A LLMG ####[facility] LABCLIA [id number] [place] [address] [place] Hematocrit (Bld) [Volume fraction] 32.7 % Low 36.0-46.0 [facility] Comment on above: Order Comment: Speci men Type: ARTERIAL BLOOD SPECIMENOrdering Facility: [facility] Address: [address] [place] [address] Performed By: #### A LLMG ####[facility] LABCLIA [id number] [place] [address] [place] Hemoglobin (Bld) [Mass/Vol] 10.6 g/dL Low 11.5-15.5 [facility] Comment on above: Order Comment: Speci men Type: ARTERIAL BLOOD SPECIMENOrdering Facility: [facility] Address: [address] [place] [address] Performed By: #### A LLMG ####[facility] LABIA [id number] [place] [address] [place] Lactate [Moles/Vol] 1.0 mmol/L Normal 0.5-2.2 [facility] Comment on above: Order Comment: Speci men Type: ARTERIAL BLOOD SPECIMENOrdering Facility: [facility] Address: [address] [place] [address] Performed By: #### A LLMG ####[facility] LABIA [id number] [place] [address] [place] Magnesium [Moles/Vol] 0.42 mmol/L Low 0.45-0.60 [facility] Comment on above: Order Comment: Speci men Type: ARTERIAL BLOOD SPECIMENOrdering Facility: [facility] Address: [address] [place] [address] Performed By: #### A LLMG ####[facility] LABIA [id number] [place] [address] [place] Methemoglobin (Bld) [Mass fraction] 2.1 % High 0.0-1.5 [facility] Comment on above: Order Comment: Speci men Type: ARTERIAL BLOOD SPECIMENOrdering Facility: [facility] Address: [address] [place] [address] Performed By: #### A LLMG ####[facility] LABIA [id number] [place] [address] [place] Oxygen (Bld) [Partial pressure] 208 mm Hg High 85-95 [facility] Comment on above: Order Comment: Speci men Type: ARTERIAL BLOOD SPECIMENOrdering Facility: [facility] Address: [address] [place] [address] Performed By: #### A LLMG ####[facility] LABCLIA [id number] [place] [address] [place] Oxygen adjusted to patient's actual temperature (Bld) [Partial pressure] 208 mmHg High 85-95 [facility] Comment on above: Order Comment: Speci men Type: ARTERIAL BLOOD SPECIMENOrdering Facility: [facility] Address: [address] [place] [address] Performed By: #### A LLMG ####[facility] LABCLIA [id number] [place] [id number] [place] Oxyhemoglobin (BldA) [Mass fraction] 96 % Normal 95-98 [facility] Comment on above: Order Comment: Speci men Type: ARTERIAL BLOOD SPECIMENOrdering Facility: [facility] Address: [address] [place] [address] Performed By: #### A LLMG ####[facility] LABIA [id number] [place] [address] [place] pH (Bld) 7.41 [pH] Normal 7.35-7.45 [facility] Comment on above: Order Comment: Speci men Type: ARTERIAL BLOOD SPECIMENOrdering Facility: [facility] Address: [address] [place] [address] Performed By: #### A LLMG ####[facility] LABCLIA [id number] [place] [id number] [place] pH adjusted to patient's actual temperature (Bld) 7.41 Normal 7.35-7.45 [facility] Comment on above: Order Comment: Speci men Type: ARTERIAL BLOOD SPECIMENOrdering Facility: [facility] Address: [address] [place] [address] Performed By: #### A LLMG ####[facility] LABCLIA [id number] [place] [id number] [place] Potassium [Moles/Vol] 4.2 mmol/L Normal 3.5-5.0 [facility] Comment on above: Order Comment: Speci men Type: ARTERIAL BLOOD SPECIMENOrdering Facility: [facility] Address: [address] [place] [address] Performed By: #### A LLMG ####[facility] LABIA [id number] [place] [address] [place] Sodium [Moles/Vol] 137 mmol/L Normal 136-144 [facility] Comment on above: Order Comment: Speci men Type: ARTERIAL BLOOD SPECIMENOrdering Facility: [facility] Address: [address] [place] [address] Performed By: #### A LLMG ####[facility] LABIA [id number] [place] [address] [place] Base deficit (BldA) [Moles/Vol] -3 mmol/L Low -2-0 [facility] Comment on above: Order Comment: Speci men Type: ARTERIAL BLOOD SPECIMENOrdering Facility: [facility] Address: [address] [place] [address] Performed By: #### A LLMG ####[facility] LABIA [id number] [place] [address] [place] Calcium.ionized (Bld) [Mass/Vol] 1.20 mmol/L Normal 1.08-1.30 [facility] Comment on above: Order Comment: Speci men Type: ARTERIAL BLOOD SPECIMENOrdering Facility: [facility] Address: [address] [place] [address] Performed By: #### A LLMG ####[facility] LABIA [id number] [place] [address] [place] Calcium.ionized adjusted to pH 7.4 (BldA) [Moles/Vol] 1.19 mmol/L Normal 1.08-1.30 [facility] Comment on above: Order Comment: Speci men Type: ARTERIAL BLOOD SPECIMENOrdering Facility: [facility] Address: [address] [place] [address] Performed By: #### A LLMG ####[facility] LABCLIA [id number] [place] [address] [place] Carboxyhemoglobin (BldA) [Mass fraction] 1.0 % Normal 0.0-2.0 [facility] Comment on above: Order Comment: Speci men Type: ARTERIAL BLOOD SPECIMENOrdering Facility: [facility] Address: [address] [place] [address] Result Comment: Carb oxyhemoglobin Reference Range for Smokers: 2.0-8.0% Performed By: #### A LLMG ####[facility] LABCLIA [id number] [place] [address] [place] CO2 (Bld) [Partial pressure] 37 mm Hg Normal 36-46 [facility] Comment on above: Order Comment: Speci men Type: ARTERIAL BLOOD SPECIMENOrdering Facility: [facility] Address: [address] [place] [address] Performed By: #### A LLMG ####[facility] LABCLIA [id number] [place] [address] [place] CO2 adjusted to patient's actual temperature (Bld) [Partial pressure] 37 mmHg Normal 36-46 [facility] Comment on above: Order Comment: Speci men Type: ARTERIAL BLOOD SPECIMENOrdering Facility: [facility] Address: [address] [place] [address] Performed By: #### A LLMG ####[facility] LABCLIA [id number] [place] [address] [place] Glucose [Mass/Vol] 114 mg/dL High 60-105 [facility] Comment on above: Order Comment: Speci men Type: ARTERIAL BLOOD SPECIMENOrdering Facility: [facility] Address: [address] [place] [address] Performed By: #### A LLMG ####[facility] LABCLIA [id number] [place] [id number] [place] HCO3 (Bld) [Moles/Vol] 21 mmol/L Low 22-26 [facility] Comment on above: Order Comment: Speci men Type: ARTERIAL BLOOD SPECIMENOrdering Facility: [facility] Address: [address] [place] [address] Performed By: #### A LLMG ####[facility] LABCLIA [id number] [place] [address] [place] Hematocrit (Bld) [Volume fraction] 35.4 % Low 36.0-46.0 [facility] Comment on above: Order Comment: Speci men Type: ARTERIAL BLOOD SPECIMENOrdering Facility: [facility] Address: [address] [place] [address] Performed By: #### A LLMG ####[facility] LABIA [id number] [place] [address] [place] Hemoglobin (Bld) [Mass/Vol] 11.5 g/dL Normal 11.5-15.5 [facility] Comment on above: Order Comment: Speci men Type: ARTERIAL BLOOD SPECIMENOrdering Facility: [facility] Address: [address] [place] [address] Performed By: #### A LLMG ####[facility] LABIA [id number] [place] [address] [place] Lactate [Moles/Vol] 0.9 mmol/L Normal 0.5-2.2 [facility] Comment on above: Order Comment: Speci men Type: ARTERIAL BLOOD SPECIMENOrdering Facility: [facility] Address: [address] [place] [address] Performed By: #### A LLMG ####[facility] LABCLIA [id number] [place] [address] [place] Magnesium [Moles/Vol] 0.72 mmol/L High 0.45-0.60 [facility] Comment on above: Order Comment: Speci men Type: ARTERIAL BLOOD SPECIMENOrdering Facility: [facility] Address: [address] [place] [address] Performed By: #### A LLMG ####[facility] LABCLIA [id number] [address] [address] [place] Methemoglobin (Bld) [Mass fraction] 1.6 % High 0.0-1.5 [facility] Comment on above: Order Comment: Speci men Type: ARTERIAL BLOOD SPECIMENOrdering Facility: [facility] Address: [address] [place] [address] Performed By: #### A LLMG ####[facility] LABCLIA [id number] [place] [id number] [place] Oxygen (Bld) [Partial pressure] 299 mm Hg High 85-95 [facility] Comment on above: Order Comment: Speci men Type: ARTERIAL BLOOD SPECIMENOrdering Facility: [facility] Address: [address] [place] [address] Performed By: #### A LLMG ####[facility] LABCLIA [id number] [place] [id number] [place] Oxygen adjusted to patient's actual temperature (Bld) [Partial pressure] 299 mmHg High 85-95 [facility] Comment on above: Order Comment: Speci men Type: ARTERIAL BLOOD SPECIMENOrdering Facility: [facility] Address: [address] [place] [id number] Performed By: #### A LLMG ####[facility] LABIA [id number] [place] [id number] [place] Oxyhemoglobin (BldA) [Mass fraction] 97 % Normal 95-98 [facility] Comment on above: Order Comment: Speci men Type: ARTERIAL BLOOD SPECIMENOrdering Facility: [facility] Address: [address] [place] [id number] Performed By: #### A LLMG ####[facility] LABCLIA [id number] [place] [id number] [place] pH (Bld) 7.38 [pH] Normal 7.35-7.45 [facility] Comment on above: Order Comment: Speci men Type: ARTERIAL BLOOD SPECIMENOrdering Facility: [facility] Address: [address] [place] [address] Performed By: #### A LLMG ####[facility] LABCLIA [id number] [place] [address] [place] pH adjusted to patient's actual temperature (Bld) 7.38 Normal 7.35-7.45 [facility] Comment on above: Order Comment: Speci men Type: ARTERIAL BLOOD SPECIMENOrdering Facility: [facility] Address: [address] [place] [address] Performed By: #### A LLMG ####[facility] LABIA [id number] [place] [id number] [place] Potassium [Moles/Vol] 4.2 mmol/L Normal 3.5-5.0 [facility] Comment on above: Order Comment: Speci men Type: ARTERIAL BLOOD SPECIMENOrdering Facility: [facility] Address: [address] [place] [address] Performed By: #### A LLMG ####[facility] LABIA [id number] [place] [id number] [place] Sodium [Moles/Vol] 139 mmol/L Normal 136-144 [facility] Comment on above: Order Comment: Speci men Type: ARTERIAL BLOOD SPECIMENOrdering Facility: [facility] Address: [address] [place] [address] Performed By: #### A LLMG ####[facility] LABCLIA [id number] [place] [id number] [place] Basic metabolic 2000 panelon 02-20-2025 Anion gap [Moles/Vol] 12 mmol/L Normal 8-15 [facility] Comment on above: Order Comment: Speci men Type: BLOOD SPECIMENOrdering Facility: [facility] Address: [address] [place] [address] Performed By: #### 2 4321-2 ####[facility] LABCLIA [id number] [facility] [address] [address] [place] Calcium [Mass/Vol] 9.4 mg/dL Normal 8.5-10.2 [facility] Comment on above: Order Comment: Speci men Type: BLOOD SPECIMENOrdering Facility: [facility] Address: [address] [place] [address] Performed By: #### 2 4321-2 ####[facility] LABCLIA [id number] [facility] [address] [address] [place] Chloride [Moles/Vol] 105 mmol/L Normal 98-107 [facility] Comment on above: Order Comment: Speci men Type: BLOOD SPECIMENOrdering Facility: [facility] Address: [address] [place] [address] Performed By: #### 2 4321-2 ####[facility] LABCLIA [id number] [place] [id number] [place] CO2 [Moles/Vol] 20 mmol/L Low 22-30 [facility] Comment on above: Order Comment: Speci men Type: BLOOD SPECIMENOrdering Facility: [facility] Address: [address] [place] [address] Performed By: #### 2 4321-2 ####[facility] LABCLIA [id number] [place] [id number] [place] Creatinine [Mass/Vol] 0.90 mg/dL Normal 0.58-0.96 [facility] Comment on above: Order Comment: Speci men Type: BLOOD SPECIMENOrdering Facility: [facility] Address: [address] [place] [address] Performed By: #### 2 4321-2 ####[facility] LABCLIA [id number] [place] [address] [place] Creatinine and Glomerular filtration rate.predicted panel (S/P/Bld) 80 mL/min/1.73m??? Normal >=60 [facility] Comment on above: Order Comment: Adelaida casillas Type: BLOOD SPECIMENOrdering Facility: [facility] Address: [address] [place] [address] Result Comment: Heather mated Glomerular Filtration Rate [...] actual GFR. Performed By: #### 2 4321-2 ####[facility] LABIA [id number] [place] [address] [place] Glucose [Mass/Vol] 94 mg/dL Normal 74-99 [facility] Comment on above: Order Comment: Adelaida casillas Type: BLOOD SPECIMENOrdering Facility: [facility] Address: [address] [place] [address] Result Comment: The [place] [employer] (ADA) provides guidance for cutoff [...] Standards of Medical Care in Diabetes 2016, [place] [employer]. Diabetes Care. 2016.39(Suppl 1). Performed By: #### 2 4321-2 ####[facility] LABCLIA [id number] [place] [id number] [place] Potassium [Moles/Vol] 4.1 mmol/L Normal 3.7-5.1 [facility] Comment on above: Order Comment: Speci men Type: BLOOD SPECIMENOrdering Facility: [facility] Address: [address] [place] [address] Performed By: #### 2 4321-2 ####[facility] LABCLIA [id number] [place] [address] [place] Sodium [Moles/Vol] 137 mmol/L Normal 136-144 [facility] Comment on above: Order Comment: Speci men Type: BLOOD SPECIMENOrdering Facility: [facility] Address: [address] [place] [address] Performed By: #### 2 4321-2 ####[facility] LABCLIA [id number] [place] [address] [place] Urea nitrogen [Mass/Vol] 11 mg/dL Normal 7-21 [facility] Comment on above: Order Comment: Speci men Type: BLOOD SPECIMENOrdering Facility: [facility] Address: [address] [place] [address] Performed By: #### 2 4321-2 ####[facility] LABCLIA [id number] [place] [id number] [place] OPERATIVE NOon 02-20-2025 OPERATIVE NO HNO ID: [id number] Author: ERIK PINEDA MD Service: Neurosurgery Author Type: Physician Type: Operative Report Filed: 02/21/2025 09:26 Note Text: OPERATIVE/PROCEDURE REPORT LOG ID: [id number] SURGERY/PROCEDURE DATE: 02/20/2025 INCISION/PROCEDURE START TIME: 1:29 PM INCISION CLOSE/PROCEDURE END TIME: 4:07 PM SURGEON(S)/PROCEDURAL IST(S) AND ELECTRONICS PRODUCTION SUPERVISOR(S): Surgeons and Role: * Erik Pineda MD [...] the OR table. The neuronavigation system using [employer] was then registered and accuracy was confirmed using external anatomical landmarks and previous imaging in the PACS system. IV antibiotics, steroids, and Keppra were then administered. The patient was then prepped and draped in standard fashion for cranial surgery. A timeout was then performed in accordance with [facility] operative protocols. A right frontotemporal craniotomy [...] was then marked with a bone pencil. [place] holes were then placed in strategic places. Bony fragments were freed. The underlying dura was then stripped using a #3 Steele. Using a high speed air drill with [...] PM IMPLA (more content not included)... Normal [facility] Pathology biopsy report Alexis (Tiss)on 02-20-2025 AP DISCLAIMER Normal [facility] Comment on above: Order Comment: Speci men Type: TISSUE SPECIMENOrdering Facility: [facility] Address: [address] [place] [address] Result Comment: Leesa brandon Developed Test (LDT) Disclaimer: Performance characteristics of immunohistochemical, immunofluorescent, and chromogenic in-situ hybridization tests have been determined by the performing laboratory within [facility]'s [facility] Pathology and Laboratory Medicine Department ([facility], [facility], [facility], [facility], [facility], [facility], or [facility]) in a manner consistent with CLIA requirements. One or more of these tests may not have been cleared or approved by the FDA. RT-PLM is regulated under CLIA as qualified to perform high-complexity testing. These tests are used for clinical purposes. These should not be regarded as investigational or for research. Positive and negative controls stain appropriately. Performed By: #### 6 6121-5 ####[facility] [id number] [place] [address] [place] CASE REPORT Normal [facility] Comment on above: Order Comment: Speci men Type: TISSUE SPECIMENOrdering Facility: [facility] Address: [address] [place] [address] Result Comment: Surg ica Pathology Report Case: [id number] Authorizing Provider: Erik Pineda MD Collected: 02/20/2025 03:13 PM Ordering Location: Admitting Received: 02/20/2025 04:45 PM Pathologist: Brody Olvera MD Specimen: Brain, Resection, right middle sphenoid wing tumor Performed By: #### 6 6121-5 ####[facility] LABIA [id number] [place] [address] [place] CLINICAL HISTORY Normal [facility] Comment on above: Order Comment: Speci sonja Type: TISSUE SPECIMENOrdering Facility: [facility] Address: [address] [place] [address] Result Comment: Pre- op diagnosis: Intracranial meningioma (HCC) [D32.0] Preop testing [Z01.818] Performed By: #### 6 6121-5 ####[facility] LABIA [id number] [address] [address] [place] DIAGNOSIS COMMENT Immunohistochemical staining of the tumor with antibodies to SSTR2a and UT was performed on block A1. The tumor shows positive staining with both antibodies, consistent with the diagnosis. A Ki-67 index of approximately 2-3% is focally noted. Normal [facility] Comment on above: Order Comment: Speci men Type: TISSUE SPECIMENOrdering Facility: [facility] Address: [address] [place] [address] Performed By: #### 6 6121-5 ####[facility] LABCLIA [id number] [address] FINAL DIAGNOSIS Normal [facility] Comment on above: Order Comment: Speci men Type: TISSUE SPECIMENOrdering Facility: [facility] Address: [address] [place] [address] Result Comment: A. R ight middle sphenoid wing region, excision: - Morphologically consistent with meningothelial meningioma, WHO grade 1 at 1536 EDT Performed By: #### 6 6121-5 ####[facility] LABCLIA [id number] [address] STATES OF [facility] FINAL PERFORMING LAB Normal [facility] Comment on above: Order Comment: Speci men Type: TISSUE SPECIMENOrdering Facility: [facility] Address: [address] [place] [address] Result Comment: Diag nostic interpretation performed at: [facility], [address] [place] [address] CLIA# [id number] Box Icer: Charan Ryan MD Performed By: #### 6 6121-5 ####[facility] LABCLIA [id number] [address] [place] GROSS DESCRIPTION Normal [facility] Comment on above: Order Comment: Speci men Type: TISSUE SPECIMENOrdering Facility: [facility] Address: [address] [place] [address] Result Comment: Angelito magdaleno, Resection Received in formalin, labeled as brain resection, right middle sphenoid wing tumor is a single bryant-brown irregular rubbery tissue measuring 2.1 x 1.3 x 0.5 cm. Sectioning reveals bryant-davidson homogenous cut surfaces. Totally submitted in cassettes A1-A2. CG February 21, 2025 10:13 AM Gross examination performed at [facility], [facility] [place] [address] Performed By: #### 6 6121-5 ####[facility] LABCLIA [id number] [facility] [id number] [place], [place] [id number] [facility] CNPNon 02-17-2025 CNPN Telephone (NSCAMN) KOURTNEY NOVAK ([id number]) 1975 F Date Time Provider Department 02/17/25 MARIO ALBERTO PHILLIPS [facility] During your visit today, we [...] follow up appts. Mario Alberto Phillips RN, Veterinary Livestock Inspector Allergies As of Date: 02/17/2025 (No Known Allergies) Date Reviewed: 02/14/2025 Reviewed by: Jace Lainez, RT(R) - Fully Assessed Reason for Visit: PreOp Call [[id number]] Prescriptions as of 02/17/2025 - ondansetron orally [...] by MARIO ALBERTO PHILLIPS on 02/17/25 Normal [facility] 02-15-2025 IKRTI Telephone (MALENARA) KOURTNEY NOVAK ([id number]) 1975 F Date Time Provider Department 02/15/25 MEHUL MARTIN During your visit today, we recorded the following information about you: Mehul Martin APRN.CNP 02/15/2025 8:15 AM Signed Please call patient. Lab did not draw [place], A1C, or BMP. Please have her go to closest [facility] lab to have them drawn. She can go to [facility] cancer center in [place] if that is best for her thank you. Thank you, Mehul Martin APRN.Barbara Sinclair LPN 02/15/2025 8:22 AM Signed I called and spoke with patient. Relayed below message; denies questions at this time. Will go to [facility]. Barbara Rosenthal LPN February 15, 2025 [...] Status:Closed by BARBARA ROSENTHAL on 02/15/25 Normal [facility] CONFIRM BLOOD TYPEon 025 ABO A Normal [facility] Comment on above: Order Comment: Speci men Type: BLOOD SPECIMENOrdering Facility: [facility] Address: [address] [place] [address] Performed By: #### C ONABO ####[facility] BLOOD BANKCLIA [id number] [place] [address] [place] Rh Nom (Bld) Negative Normal [facility] Comment on above: Order Comment: Adelaida casillas Type: BLOOD SPECIMENOrdering Facility: [facility] Address: [address] [place] [address] Performed By: #### C ONABO ####[facility] BLOOD BANKCLIA [id number] [place] [address] [place] HbA1c (Bld)on 02-15-2025 Average glucose Estimated from glycated hemoglobin (Bld) [Mass/Vol] 108 mg/dL Normal [facility] Comment on above: Order Comment: Adelaida men Type: BLOOD SPECIMENOrdering Facility: [facility] Address: [address] [place] [address] Result Comment: eAG: (Estimated average glucose) is a calculated value from HgbA1c and is small business sales representative of the average blood glucose level in the last 2-3 month period. Performed By: #### 5 5454-3 ####[facility] LABCLIA [id number] [place] [address] [place] HbA1c (Bld) [Mass fraction] 5.4 % Normal 4.3-5.6 [facility] Comment on above: Order Comment: Speci men Type: BLOOD SPECIMENOrdering Facility: [facility] Address: [address] [place] [address] Result Comment: Amer ican Diabetes Association guidelines indicate that patients with HgbA1c in the range 5.7-6.4% are at increased risk for development of diabetes, and intervention by lifestyle modification may be beneficial. HgbA1c greater or equal to 6.5% is considered diagnostic of diabetes. Performed By: #### 5 5454-3 ####[facility] LABCLIA [id number] [place] [address] [place] ALT SerPl-cCncon 02-14-2025 ALT [Catalytic activity/Vol] 27 U/L Normal 7-38 [facility] Comment on above: Order Comment: Speci men Type: BLOOD SPECIMENOrdering Facility: [facility] Address: [address] [place] [address] Performed By: #### 1 742-6, 1920-04, 1988-01 ####[facility] LABCLIA [id number] [place] [address] [place] AST SerPl-cCncon 02-14-2025 AST [Catalytic activity/Vol] 20 U/L Normal 13-35 [facility] Comment on above: Order Comment: Speci men Type: BLOOD SPECIMENOrdering Facility: [facility] Address: [address] [place] [address] Performed By: #### 1 742-6, 1920-04, 1988-01 ####[facility] LABIA [id number] [place] [address] [place] CBC panel Auto (Bld)on 02-14 Erythrocyte distribution width (RBC) [Ratio] 13.4 % Normal 11.5-15.0 [facility] Comment on above: Order Comment: Speci men Type: BLOOD SPECIMENOrdering Facility: [facility] Address: [address] [place] [address] Performed By: #### 5 8410-2, 4537-7 ####[facility] LABIA [id number] [place] [address] [place] Hematocrit (Bld) [Volume fraction] 39.2 % Normal 36.0-46.0 [facility] Comment on above: Order Comment: Speci men Type: BLOOD SPECIMENOrdering Facility: [facility] Address: [address] [place] [address] Performed By: #### 5 8410-2, 4537-7 ####[facility] LABIA [id number] [place] [address] [place] Hemoglobin (Bld) [Mass/Vol] 12.6 g/dL Normal 11.5-15.5 [facility] Comment on above: Order Comment: Speci men Type: BLOOD SPECIMENOrdering Facility: [facility] Address: [address] [place] [address] Performed By: #### 5 8410-2, 453-7 ####[facility] LABIA [id number] [place] [address] [place] MCH (RBC) [Entitic mass] 29.9 pg Normal 26.0-34.0 [facility] Comment on above: Order Comment: Speci men Type: BLOOD SPECIMENOrdering Facility: [facility] Address: [address] [place] [address] Performed By: #### 5 8410-2, 7-7 ####[facility] LABIA [id number] [place] [address] [place] MCHC (RBC) [Mass/Vol] 32.1 g/dL Normal 30.5-36.0 [facility] Comment on above: Order Comment: Speci men Type: BLOOD SPECIMENOrdering Facility: [facility] Address: [address] [place] [address] Performed By: #### 5 8410-2, 7 ####[facility] LABIA [id number] [place] [id number] [place] MCV (RBC) [Entitic vol] 93.1 fL Normal 80.0-100.0 C [facility] Comment on above: Order Comment: Speci men Type: BLOOD SPECIMENOrdering Facility: [facility] Address: [address] [place] [address] Performed By: #### 5 8410-2, 4537-03 ####[facility] [id number] [place] [address] [place] Nucleated RBC (Bld) [#/Vol] 10*3/uL Normal <0.01 [facility] Comment on above: Order Comment: Speci men Type: BLOOD SPECIMENOrdering Facility: [facility] Address: [address] [place] [address] Performed By: #### 5 8410-2, 4537-03 ####[facility] [id number] [address] [place] Platelet mean volume (Bld) [Entitic vol] 10.9 fL Normal 9.0-12.7 [facility] Comment on above: Order Comment: Speci men Type: BLOOD SPECIMENOrdering Facility: [facility] Address: [address] [place] [address] Performed By: #### 5 8410-2, 4537-03 ####[facility] [id number] [place] [id number] [place] Platelets (Bld) [#/Vol] 329 10*3/uL Normal 150-400 [facility] Comment on above: Order Comment: Speci men Type: BLOOD SPECIMENOrdering Facility: [facility] Address: [address] [place] [address] Performed By: #### 5 8410-2, 4537-03 ####[facility] LABCLIA [id number] [address] [address] [place] RBC (Bld) [#/Vol] 4.21 10*6/uL Normal 3.90-5.20 [facility] Comment on above: Order Comment: Speci men Type: BLOOD SPECIMENOrdering Facility: [facility] Address: [address] [place] [address] Performed By: #### 5 8410-2, 4537-7 ####[facility] LABIA [id number] [address] [address] [place] WBC (Bld) [#/Vol] 7.27 10*3/uL Normal 3.70-11.00 [facility] Comment on above: Order Comment: Speci men Type: BLOOD SPECIMENOrdering Facility: [facility] Address: [address] [place] [address] Performed By: #### 5 8410-2, 4537-7 ####[facility] [id number] [place] [address] [place] CRP SerPl-mCncon 02-14-2025 CRP [Mass/Vol] 0.6 mg/dL Normal <0.9 [facility] Comment on above: Order Comment: Speci men Type: BLOOD SPECIMENOrdering Facility: [facility] Address: [address] [place] [address] Performed By: #### 1 742-6, 8, 1988-01 ####[facility] [id number] [place] [address] [place] [id number] 02-14-2025 ECG01 Ventricular Rate : 7 7 BPM Atrial Rate : 77 BPM P-R Interval : 138 ms QRS Duration : 82 ms Q-T Interval : 386 ms QTC Calculation(Bazett) : 436 ms Calculated P Novi : 36 degrees Calculated R Novi : 47 degrees Calculated T Novi : 47 degrees NORMAL SINUS RHYTHM NORMAL ECG Confirmed by DI YORK M.D. ([id number]) on 02/14/2025 1:23:03 PM NAME : KOURTNEY NOVAK PID : [id number] : 1975 Gender : Female Race : [...] ERIK PINEDA Acquired by : am, Normal [facility] ESR Westergren method (Bld) [Velocity]on 02-14-2025 ESR (Bld) [Velocity] 2 mm/h Normal 0-20 [facility] Comment on above: Order Comment: Speci men Type: BLOOD SPECIMENOrdering Facility: [facility] Address: [address] [place] [address] Performed By: #### 5 8410-2, 4537-7 ####[facility] LABCLIA [id number] [place] [address] [place] HISTORY PHYSICALon HISTORY PHYSICAL HNO ID: [id number] Author: MEHUL MARTIN APRN.CNP Service: ? Author [...] [facility] rheumatology COPD (chronic obstructive pulmonary disease) ([facility]) Assessment: Stable with nebulizer treatments Denies any SOB Denies any Home oxygen use Lungs clear on exam SpO2 in office today 96% Monitored by PCP MAREK (obstructive sleep apnea) Assessment: Does not use CPAP Mixed hyperlipidemia Assessment: Compliant with Statin GERD (gastroesophageal reflux disease) Assessment: Controlled with dexilant Hypothyroidism Assessment: Controlled with levothyroxine Diabetes mellitus ([facility]) Assessment: Complaint with oral medications -A1C ordered today Instructions provided to patient on how long to hold diabetic medications prior to procedure Anxiety Assessment: Controlled with Lamictal Class 3 severe obesity due to excess calories with serious comorbidity and body mass index (BMI) of 40.0 to 44.9 in adult ([facility]) Assessment: Body mass index is [...] of breath with the above physical activity. [id number] Score: Age: <65 Sex: female CHF history: No Hypertension history: No Stroke/TIA/thromboemb olism history: No Vascular disease history: No Diabetes history: Yes [id number] Score: 2 ARISCAT Score: Age: <=50 Preoperative [...] that was (more content not included)... 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 No acute abnormalities. Drum Tester: GUANACO Transcribe Date/Time: Feb 14 2025 10:01A Dictated by : SEAN BLOCK MD This examination was interpreted and the report reviewed and electronically signed by: SEAN BLOCK MD on Feb 14 2025 10:22AM [facility] DIVISION OF RADIOLOGY * * *Final Report* * * DATE OF EXAM: Feb 14 2025 10:37AM [facility] 0295 - MRI BRAIN WO/W [...] tissue mass extending into the of the life trainer or parapharyngeal spaces. The soft tissue planes of the, retropharyngeal, and prevertebral spaces are maintained. The visualized parotid glands are normal in appearance. Nasopharynx/Oropharyn x: The nasopharynx and oropharynx are normal in appearance. DIVISION OF RADIOLOGY Provider, [facility] - 02/14/2025 * * *Final Report* * * DATE OF EXAM: Feb 14 2025 10:37AM [facility] 0295 - MRI BRAIN WO/W [...] tissue mass extending into the of the life trainer or parapharyngeal spaces. The soft tissue planes [...] exam in November 2015. No acute abnormalities. Drum Tester: PSCB Transcribe Date/Time: Feb 14 2025 10:01A Dictated by : SEAN BLOCK MD This examination was interpreted and the report reviewed and electronically signed by: SEAN BLOCK MD on Feb 14 2025 10:22AM EST [facility] Radiology Study observation (narrative) Elisa rivera [facility] MR Brain WO and W contrast I VOrdered By: [facility] Provider on 02-14-2025 [facility] MRI BRAIN WO/W IVCONon 02-14 MRI BRAIN WO/W IVCON * * *Final Report* * * DATE OF EXAM: Feb 14 2025 10:37AM [facility] 0295 - MRI BRAIN WO/W [...] tissue mass extending into the of the life trainer or parapharyngeal spaces. The soft tissue planes [...] exam in November 2015. No acute abnormalities. Drum Tester: GUANACO Transcribe Date/Time: Feb 14 2025 10:01A Dictated by : SEAN BLOCK MD This examination was interpreted and the report reviewed and electronically signed by: SEAN BLOCK MD on Feb 14 2025 10:22AM EST [id number] Normal [facility] STAPHYLOCOCCUS AUREUS AND MR SA SCREEN, PCR, NASALon 02-14-2025 S. aureus and MRSA panel RADHA+probe (Nose) Not detected Normal Not Detected [facility] Comment on above: Order Comment: Speci men Type: SWABOrdering Facility: [facility] Address: [address] [place] [address] Performed By: #### S APCR ####[facility] LABCLIA [id number] [address] [place] TYPE AND SCREEN,30 DAYon ABO A Normal [facility] Comment on above: Order Comment: Speci men Type: BLOOD SPECIMENOrdering Facility: [facility] Address: [address] [place] [address] Performed By: #### T SCR30 ####[facility] BLOOD BANKIA [id number] [place] [address] [place] Rh Nom (Bld) Negative Normal [facility] Comment on above: Order Comment: Speci men Type: BLOOD SPECIMENOrdering Facility: [facility] Address: [address] [place] [address] Performed By: #### T SCR30 ####[facility] BLOOD BANKIA [id number] [place] [address] [place] US renal BIon 02-10-2025 US renal BI [facility] [address] [address] Ultrasound Report Signed Patient: Kourtney Novak MR#: [id number] : 1975 Acct:[id number] Age/Sex: 49 / F ADM Date: 02/10/25 [...] Gray M.D. 02/10/2025 4:44 PM Dictation Location: [place] [address] Tech: Vani Baker Transcribed By: GRACIE 02/10/25 1644 Dictated By: George Gray DO 02/10/25 164 Signed By: 02/10/25 164 Normal [facility] CNOVon 12-28-2024 CNOV Office Visit (MAGDALENAUAV ) KISHOREKOURTNEY Alex ([id number]) 1975 F Date Time Provider Department 12/28/24 [...] air moveme (more content not included)... Normal [facility] X-ray reportOrdered By: Quirino Hoffmann on 12-27-2024 Study report [facility] [address] [place] [address] XRay Report Signed Patient: Kourtney Novak MR#: [id number] : 1975 Acct:[id number] Age/Sex: 49 / F ADM Date: 5 Loc: [facility]: Elyssa Gomes MD Copies to: [...] Lincoln Hoffmann M.D.12/27/2024 4:47 PM Dictation Location: [place] [address] Transcribed By: [facility] 12/27/241646 Dictated By: Lincoln Hoffmann MD 12/27/241642 Signed By: 12/27/241646 [facility] Work Phone: XR wrist RT min 3V*on 2024 XR wrist RT min 3V* [facility] [address] [place] [address] XRay Report Signed Patient: Kourtney Novak MR#: [id number] : 1975 Acct:[id number] Age/Sex: 49 / F ADM Date: 12/27/24 Loc: [facility] Room: Type: [facility] Attending Dr: Elyssa Gomes MD Copies to: [...] Lincoln Hoffmann M.D.12/27/2024 4:47 PM Dictation Location: [place] [address] Transcribed By: [facility] 12/27/241646 Dictated By: Lincoln Hoffmann MD 12/27/241642 Signed By: 12/27/241646 Normal [facility] Basophils Auto (Bld) [#/Vol] Ordered By: Sammie Gonzalez on 12-13-2024 Basophils (Bld) [#/Vol] Automated basoph il count 0.0-0.2 [facility] Basophils/100 WBC Auto (Bld) Ordered By: Sammie Gonzalez on 12-13-2024 Basophils/100 WBC (Bld) Automated basophil % . [facility] Complete Blood Count Auto Di ffon 12-13-2024 Basophils (Bld) [#/Vol] 0.1 10*3/uL Normal 0.0-0.2 [facility] Comment on above: Result Comment: PERF ORMED BY: [facility] [address] [place] [address] PATHOLOGIST DESIGN COORDINATOR PAKO RAMACHANDRAN M.D. Performed By: #### C BC, FE, MARIELLA ####[place] [id number] [place] Basophils/100 WBC (Bld) 1.0 % Normal . [facility] Comment on above: Performed By: #### C BC, FE, MARIELLA ####[place] [id number] [place] Eosinophils (Bld) [#/Vol] 0.2 10*3/uL Normal 0.0-0.45 [facility] Comment on above: Performed By: #### C VAUGHN, FE, MARIELLA ####[address] Eosinophils/100 WBC (Bld) 2.7 % Normal . [facility] Comment on above: Performed By: #### C VAUGHN, FE, MARIELLA ####[place] [id number] [place] Erythrocyte distribution width (RBC) [Ratio] 13.3 % Normal 11.9-15.3 [facility] Comment on above: Performed By: #### C BC, FE, MARIELLA ####[place] [id number] [place] Hematocrit (Bld) [Volume fraction] 38.5 % Normal 34.0-46.4 [facility] Comment on above: Performed By: #### C BC, FE, MARIELLA ####[place] [id number] [place] Hemoglobin (Bld) [Mass/Vol] 12.7 g/dL Normal 11.8-15.4 [facility] Comment on above: Performed By: #### C BC, FE, MARIELLA ####[place] [id number] [place] Lymphocytes (Bld) [#/Vol] 2.6 10*3/uL Normal 1.00-4.8 [facility] Comment on above: Performed By: #### C BC, FE, MARIELLA ####[address] Lymphocytes/100 WBC (Bld) 30.8 % Normal . [facility] Comment on above: Performed By: #### C BC, FE, MARIELLA ####[address] MCH (RBC) [Entitic mass] 30.2 pg Normal 24.7-34.3 [facility] Comment on above: Performed By: #### C BC, FE, MARIELLA ####[address] MCV (RBC) [Entitic vol] 91.4 fL Normal 80-100 [facility] Comment on above: Performed By: #### C BC, FE, MARIELLA ####[address] Mean Corpuscular HGB Conc 33.1 g/dL Normal 32.0-35.0 [facility] Comment on above: Performed By: #### C BC, FE, MARIELLA ####[address] Monocytes (Bld) [#/Vol] 0.9 10*3/uL High 0.0-0.8 [facility] Comment on above: Performed By: #### C BC, FE, MARIELLA ####[address] Monocytes/100 WBC (Bld) 11.1 % Normal . [facility] Comment on above: Performed By: #### C BC, FE, MARIELLA ####[address] Neutrophils (Bld) [#/Vol] 4.6 10*3/uL Normal 1.8-7.7 [facility] Comment on above: Performed By: #### C BC, FE, MARIELLA ####[address] Neutrophils/100 WBC (Bld) 54.4 % Normal . [facility] Comment on above: Performed By: #### C LAURIE MENDES, MARIELLA ####[address] NRBC% 0.1 /100{WBC} Normal 0-0.5 [facility] Comment on above: Performed By: #### C VAUGHN FE, MARIELLA ####[address] Platelet mean volume (Bld) [Entitic vol] 8.6 fL Normal 6.3-10.7 [facility] Comment on above: Performed By: #### C LAURIE MENDES, MARIELLA ####[address] Platelets (Bld) [#/Vol] 372 10*3/uL Normal 150-450 [facility] Comment on above: Performed By: #### C LAURIE MENDES, MARIELLA ####[address] RBC (Bld) [#/Vol] 4.22 10*6/uL Normal 3.60-5.00 [facility] Comment on above: Performed By: #### C LAURIE MENDES, MARIELLA ####[address] WBC (Bld) [#/Vol] 8.5 10*3/uL Normal 3.8-11.6 [facility] Comment on above: Performed By: #### C LAURIE MENDES, MARIELLA ####[address] Eosinophils Auto (Bld) [#/Vo l]Ordered By: Sammie Gonzalez on 12-13-2024 Eosinophils (Bld) [#/Vol] Automated eosinophil count 0.0-0.45 [facility] Eosinophils/100 WBC Auto (Bl d)Ordered By: Sammie Gonzalez on 12-13-2024 Eosinophils/100 WBC (Bld) Automated eosinophil % . [facility] Erythrocyte distribution wid th Auto (RBC) [Ratio]Ordered By: Sammie Gonzalez on 12-13-2024 Erythrocyte distribution width (RBC) [Ratio] Erythrocyte distribution width [Ratio] by Automated count 11.9-15.3 [facility] Ferritinon 12-13-2024 Ferritin [Mass/Vol] 56.2 ng/mL Normal 11.0-306.8 [facility] Comment on above: Result Comment: PERF ORMED BY: [facility] [address] [place] [address] PATHOLOGIST DESIGN COORDINATOR PAKO RAMACHANDRAN M.D. Performed By: #### C LAURIE MENDES, MARIELLA ####[place] [address] [place] [address] [place] Ferritin [Mass/volume] in Se rum or PlasmaOrdered By: Sammie Gonzalez on 12-13-2024 Ferritin [Mass/Vol] Ferritin [Mass/volume] in Serum or Plasma 11.0-306.8 [facility] Hematocrit Auto (Bld) [Volum e fraction]Ordered By: Sammie Gonzalez on 12-13-2024 Hematocrit (Bld) [Volume fraction] Hematocrit [Volume Fraction] of Blood by Automated count 34.0-46.4 [facility] Hemoglobin [Mass/volume] in BloodOrdered By: Sammie Gonzalez on 12-13-2024 Hemoglobin (Bld) [Mass/Vol] Hemoglobin [Mass/volume] in Blood 11.8-15.4 [facility] Ironon 12-13-2024 Iron [Mass/Vol] 37 ug/dL Low 50-212 [facility] Comment on above: Performed By: #### C LAURIE MENDES, MARIELLA ####[place] [address] [place] [address] [place] Iron [Mass/volume] in Serum or PlasmaOrdered By: Sammie Gonzalez on 12-13-2024 Iron [Mass/Vol] Iron [Mass/volume] i n Serum or Plasma Low 50-212 [facility] Leukocytes [#/volume] correc jana for nucleated erythrocytes in Blood by Automated counOrdered By: Sammie Gonzalez on 12-13-2024 WBC corrected for nucl RBC Auto (Bld) [#/Vol] Leukocytes [#/volume] corrected for nucleated erythrocytes in Blood by Automated coun 3.8-11.6 [facility] Lymphocytes Auto (Bld) [#/Vo l]Ordered By: Sammie Gonzalez on 12-13-2024 Lymphocytes (Bld) [#/Vol] Lymphocytes [#/volume] in Blood by Automated count 1.00-4.8 [facility] Lymphocytes/100 WBC Auto (Bl d)Ordered By: Sammie Gonzalez on 12-13-2024 Lymphocytes/100 WBC (Bld) Lymphocytes/100 leukocytes in Blood by Automated count . [facility] MCH Auto (RBC) [Entitic mass ]Ordered By: Sammie Gonzalez on 12-13-2024 MCH (RBC) [Entitic mass] MCH [Entitic mass] by Automated count 24.7-34.3 [facility] MCHC Auto (RBC) [Mass/Vol]Or dered By: Sammie Gonzalez on 12-13-2024 MCHC (RBC) [Mass/Vol] MCHC [Mass/volume] by Automated count 32.0-35.0 [facility] MCV Auto (RBC) [Entitic vol] Ordered By: Sammie Gonzalez on 12-13-2024 MCV (RBC) [Entitic vol] MCV [Entitic vol ume] by Automated count 80-100 [facility] Monocytes Auto (Bld) [#/Vol] Ordered By: Sammie Gonzalze on 12-13-2024 Monocytes (Bld) [#/Vol] Automated blood monocyte count High 0.0-0.8 [facility] Monocytes/100 WBC Auto (Bld) Ordered By: Sammie Gonzalez on 12-13-2024 Monocytes/100 WBC (Bld) Automated monocyte % . [facility] Neutrophils Auto (Bld) [#/Vo l]Ordered By: Sammie Gonazlez on 12-13-2024 Neutrophils (Bld) [#/Vol] Neutrophils [#/volume] in Blood by Automated count 1.8-7.7 [facility] Neutrophils/100 WBC Auto (Bl d)Ordered By: Sammie Gonzalez on 12-13-2024 Neutrophils/100 WBC (Bld) Automated neutrophil % . [facility] Nucleated erythrocytes [Pres ence] in Blood by Automated countOrdered By: Sammie Gonzalez on 12-13-2024 Nucleated RBC Auto Ql (Bld) Nucleated erythrocytes [Presence] in Blood by Automated count 0-0.5 [facility] Platelet mean volume Auto (B ld) [Entitic vol]Ordered By: Sammie Gonzalez on 12-13-2024 Platelet mean volume (Bld) [Entitic vol] Platelet mean volume [Entitic volume] in Blood by Automated count 6.3-10.7 [facility] Platelets Auto (Bld) [#/Vol] Ordered By: Sammie Gonzalez on 12-13-2024 Platelets (Bld) [#/Vol] Platelets [#/vol ume] in Blood by Automated count 150-450 [facility] RBC Auto (Bld) [#/Vol]Ordere d By: Sammie Gonzalez on 12-13-2024 RBC (Bld) [#/Vol] Erythrocytes [#/volume] in Blood by Automated count 3.60-5.00 [facility] WBC Auto (Bld) [#/Vol]Ordere d By: Sammie Gonzalez on 12-13-2024 WBC (Bld) [#/Vol] Leukocytes [#/volume ] in Blood by Automated count 3.8-11.6 [facility] CNPNon 12-05-2024 CNPN Telephone ([facility]) KOURTNEY NOVAK ([id number]) 1975 F Date Time Provider Department 12/05/24 MARIO ALBERTO PHILLIPS [facility] During your visit today, we [...] for questions/concerns/up dates. Mario Alberto Phillips RN, Veterinary Livestock Inspector Allergies As of Date: 12/05/2024 (No Known Allergies) Date Reviewed: 05/30/2024 Reviewed by: Saritha Keith MA - Fully Assessed Reason for Visit: Care Coordination [0129] Cmt: Karthik Follow up - Surgery Planning [...] by MARIO ALBERTO PHILLIPS on 12/05/24 Normal [facility] X-ray reportOrdered By: Samuel Gray on 11-03-2024 Study report [facility] [address] [place] [address] XRay Report Signed Patient: Kourtney Novak MR#: [id number] : 1975 Acct:[id number] Age/Sex: 48 / F ADM Date: 5 Loc: [facility] Room: Type: [facility] Attending Dr: Mk Broderick MD Copies to: [...] George Gray M.D.11/03/2024 4:19 PM Dictation Location: [place] [address] Transcribed By: [facility] 11/03/24 1619 Dictated By: George Gray DO 11/03/24 1618 Signed By: 11/03/24 1619 [facility] XR shoulder LT min 2V*on XR shoulder LT min 2V* [facility] [address] [place] [address] XRay Report Signed Patient: Kourtney Novak MR#: [id number] : 1975 Acct:[id number] Age/Sex: 48 / F ADM Date: 11/03/24 Loc: [facility] Room: Type: [facility] Attending Dr: Mk Broderick MD Copies to: [...] George Gray M.D.11/03/2024 4:19 PM Dictation Location: [place] [address] Transcribed By: [facility] 11/03/24 161 Dictated By: George Gray DO 11/03/24 1618 Signed By: 11/03/24 1619 Normal [facility] Kathy 10-10-2024 KIRTI Telephone (ISSA) KOURTNEY NOVAK ([id number]) 1975 F Date Time Provider Department 10/10/24 ZEINAB WOOD During your visit today, we recorded the following information about you: Susy Escamilla LPN 10/10/2024 4:11 PM Addendum Received fax from [facility]. States that diagnosis code M19.9 ( inflammatory arthritis ) [place] [address] regarding CBC test. They needs a different order to be placed with another diagnosis code. Please fax to Jimbo Whitten at [phone]. Notice sent to scanning . Please route to [facility] nurse for follow up Susy Escamilla LPN 10/10/2024 5:01 PM Signed Faxed new order with updated diagnosis code . sent to [phone]. Allergies As of Date: 10/10/2024 (No Known Allergies) Date Reviewed: 05/30/2024 Reviewed by: Saritha Keith MA - Fully Assessed Reason for Visit: Veterinary Livestock Inspector - Other [3602] Cmt: Lab order problem Primary Visit Diagnosis:Encounter for medication monitoring [Z51.81] Order(s):ASPARTATE AMINOTRANSFERASE/SGOT [SQAST] Order #: [id number] STANDING ALANINE AMINOTRANSFERASE / SGPT [SQALT] Order #: [id number] STANDING COMPLETE BLOOD COUNT [SQCBC] Order #: [id number] STANDING SEDIMENTATION RATE, WESTERGREN [SQWSR] Order #: [id number] STANDING C-REACTIVE PROTEIN [SQCRP] Order #: [id number] STANDING Prescriptions as of 10/10/2024 - DULoxetine [...] Status:Closed by SUSY ESCAMILLA on 10/10/24 Normal [facility] Alanine Aminotransferaseon 0 09-20-2024 ALT [Catalytic activity/Vol] 21 U/L Normal [facility] Comment on above: Order Comment: PIPER YANCEY Performed By: #### A ST, ALT, CRP, CBC, ESR #### [address] Alanine aminotransferase [En zymatic activity/volume] in Serum or PlasmaOrdered By: Zeinab Wood on 09-20-2024 ALT [Catalytic activity/Vol] Alanine aminotransferase [Enzymatic activity/volume] in Serum or Plasma [facility] Aspartate Amino Transferaseo n 09-20-2024 AST [Catalytic activity/Vol] 14 U/L Normal 13-39 [facility] Comment on above: Order Comment: PIPER YANCEY Performed By: #### A ST, ALT, CRP, CBC, ESR #### [address] Aspartate aminotransferase [ Enzymatic activity/volume] in Serum or PlasmaOrdered By: Zeinab Wood on 09-20-2024 AST [Catalytic activity/Vol] Aspartate aminotransferase [Enzymatic activity/volume] in Serum or Plasma 13-39 [facility] Basophils Auto (Bld) [#/Vol] Ordered By: Zeinab Wood on 09-20-2024 Basophils (Bld) [#/Vol] Automated basoph il count 0.0-0.2 [facility] Basophils/100 WBC Auto (Bld) Ordered By: Zeinab Wood on 09-20-2024 Basophils/100 WBC (Bld) Automated basophil % . [facility] C reactive protein [Mass/vol ume] in Serum or PlasmaOrdered By: Zeinab Wood on 09-20-2024 CRP [Mass/Vol] C reactive protein [Mass/volume] in Serum or Plasma High 0.0-0.5 [facility] C-Reactive Proteinon 025 C-Reactive Protein 0.7 mg/dL High 0.0-0.5 [facility] Comment on above: Order Comment: PIPER YANCEY Result Comment: PERF ORMED BY: [place] [address] PATHOLOGIST DESIGN COORDINATOR PAKO RAMACHANDRAN M.D. Performed By: #### A ST, ALT, CRP, CBC, ESR #### [address] CNPNon 09-20-2024 CNPN Telephone ([facility]) KOURTNEY NOVAK ([id number]) 1975 F Date Time Provider Department 09/20/24 ZEINAB WOOD During your visit today, we recorded the following information about you: Susy Escamilla LPN 09/20/2024 5:47 PM Signed Lab results received from [facility] . Copy sent to scan, copy sent to provider folder for review. . Allergies As of Date: 09/20/2024 (No Known Allergies) Date Reviewed: 05/30/2024 Reviewed by: Saritha Keith MA - Fully Assessed Reason for Visit: Results [95] Cmt: Lab results from [facility] Prescriptions as of 09/21/2024 - etodolac (LODINE) [...] Status:Closed by SUSY ESCAMILLA on 09/21/24 Normal [facility] Complete Blood Count Auto Di ffon 09-20-2024 Basophils (Bld) [#/Vol] 0.0 10*3/uL Normal 0.0-0.2 [facility] Comment on above: Order Comment: [email or web address] Performed By: #### A ST, ALT, CRP, CBC, ESR #### [facility] [address] Basophils/100 WBC (Bld) 0.6 % Normal . T l[facility] Comment on above: Order Comment: [email or web address] Performed By: #### A ST, ALT, CRP, CBC, ESR #### [facility] [address] Eosinophils (Bld) [#/Vol] 0.1 10*3/uL Normal 0.0-0.45 [facility] Comment on above: Order Comment: [email or web address] Performed By: #### A ST, ALT, CRP, CBC, ESR #### [facility] [address] [place] [id number] [place] Eosinophils/100 WBC (Bld) 1.2 % Normal . [facility] Comment on above: Order Comment: [email or web address] Performed By: #### A ST, ALT, CRP, CBC, ESR #### [facility] [address] Erythrocyte distribution width (RBC) [Ratio] 13.0 % Normal 11.9-15.3 [facility] Comment on above: Order Comment: [email or web address] [email or web address] Performed By: #### A ST, ALT, CRP, CBC, ESR #### [address] Hematocrit (Bld) [Volume fraction] 35.8 % Normal 34.0-46.4 [facility] Comment on above: Order Comment: [email or web address] [email or web address] Performed By: #### A ST, ALT, CRP, CBC, ESR #### [address] Hemoglobin (Bld) [Mass/Vol] 12.0 g/dL Normal 11.8-15.4 [facility] Comment on above: Order Comment: [email or web address] [email or web address] Performed By: #### A ST, ALT, CRP, CBC, ESR #### [address] Lymphocytes (Bld) [#/Vol] 2.1 10*3/uL Normal 1.00-4.8 [facility] Comment on above: Order Comment: [email or web address] Performed By: #### A ST, ALT, CRP, CBC, ESR #### [address] Lymphocytes/100 WBC (Bld) 28.4 % Normal . [facility] Comment on above: Order Comment: [email or web address] Performed By: #### A ST, ALT, CRP, CBC, ESR #### [address] MCH (RBC) [Entitic mass] 30.4 pg Normal 24.7-34.3 [facility] Comment on above: Order Comment: [email or web address] Performed By: #### A ST, ALT, CRP, CBC, ESR #### [address] MCV (RBC) [Entitic vol] 90.8 fL Normal 80-100 T he [facility] Comment on above: Order Comment: [email or web address] Performed By: #### A ST, ALT, CRP, CBC, ESR #### [address] Mean Corpuscular HGB Conc 33.5 g/dL Normal 32.0-35.0 [facility] Comment on above: Order Comment: [email or web address] [email or web address] Performed By: #### A ST, ALT, CRP, CBC, ESR #### [address] Monocytes (Bld) [#/Vol] 1.0 10*3/uL High 0.0-0.8 [facility] Comment on above: Order Comment: [email or web address] Performed By: #### A ST, ALT, CRP, CBC, ESR #### [address] Monocytes/100 WBC (Bld) 13.1 % Normal . T he [facility] Comment on above: Order Comment: [email or web address] Performed By: #### A ST, ALT, CRP, CBC, ESR #### [address] Neutrophils (Bld) [#/Vol] 4.3 10*3/uL Normal 1.8-7.7 [facility] Comment on above: Order Comment: [email or web address] Performed By: #### A ST, ALT, CRP, CBC, ESR #### [address] Neutrophils/100 WBC (Bld) 56.7 % Normal . [facility] Comment on above: Order Comment: [email or web address] Performed By: #### A ST, ALT, CRP, CBC, ESR #### [address] NRBC% 0.0 /100{WBC} Normal 0-0.5 [facility] Comment on above: Order Comment: [email or web address] Performed By: #### A ST, ALT, CRP, CBC, ESR #### [address] Platelet mean volume (Bld) [Entitic vol] 8.5 fL Normal 6.3-10.7 [facility] Comment on above: Order Comment: [email or web address] [email or web address] Performed By: #### A ST, ALT, CRP, CBC, ESR #### [facility] [address] Platelets (Bld) [#/Vol] 353 10*3/uL Normal 150-450 [facility] Comment on above: Order Comment: [email or web address] [email or web address] Performed By: #### A ST, ALT, CRP, CBC, ESR #### [facility] [address] RBC (Bld) [#/Vol] 3.94 10*6/uL Normal 3.60-5.00 [facility] Comment on above: Order Comment: [email or web address] Performed By: #### A ST, ALT, CRP, CBC, ESR #### [facility] [address] WBC (Bld) [#/Vol] 7.5 10*3/uL Normal 3.8-11.6 [facility] Comment on above: Order Comment: [email or web address] Performed By: #### A ST, ALT, CRP, CBC, ESR #### [facility] [address] Eosinophils Auto (Bld) [#/Vo l]Ordered By: Zeinab Wood on 09-20-2024 Eosinophils (Bld) [#/Vol] Automated eosinophil count 0.0-0.45 [facility] Eosinophils/100 WBC Auto (Bl d)Ordered By: Zeinab Wood on 09-20-2024 Eosinophils/100 WBC (Bld) Automated eosinophil % . [facility] Erythrocyte Sedimentation Ra gabriel 09-20-2024 ESR (Bld) [Velocity] 9 mm/h Normal 0-19 [facility] Comment on above: Order Comment: [email or web address] Result Comment: PERF ORMED BY: [place] [address] PATHOLOGIST DESIGN COORDINATOR PAKO RAMACHANDRAN M.D. Performed By: #### A ST, ALT, CRP, CBC, ESR #### [facility] [address] Erythrocyte distribution wid th Auto (RBC) [Ratio]Ordered By: Zeinab Wood on 09-20-2024 Erythrocyte distribution width (RBC) [Ratio] Erythrocyte distribution width [Ratio] by Automated count 11.9-15.3 [facility] Erythrocyte sedimentation ra te by Photometric methodOrdered By: Zeinab Wood on 09-20-2024 ESR Photometric method (Bld) [Velocity] Erythrocyte sedimentation rate by Photometric method 0-19 [facility] Hematocrit Auto (Bld) [Volum e fraction]Ordered By: Zeinab Wood on 09-20-2024 Hematocrit (Bld) [Volume fraction] Hematocrit [Volume Fraction] of Blood by Automated count 34.0-46.4 [facility] Hemoglobin [Mass/volume] in BloodOrdered By: Zeinab Wood on 09-20-2024 Hemoglobin (Bld) [Mass/Vol] Hemoglobin [Mass/volume] in Blood 11.8-15.4 [facility] Leukocytes [#/volume] correc jana for nucleated erythrocytes in Blood by Automated counOrdered By: Zeinab Wood on 09-20-2024 WBC corrected for nucl RBC Auto (Bld) [#/Vol] Leukocytes [#/volume] corrected for nucleated erythrocytes in Blood by Automated coun 3.8-11.6 [facility] Lymphocytes Auto (Bld) [#/Vo l]Ordered By: Zeinab Wood on 09-20-2024 Lymphocytes (Bld) [#/Vol] Lymphocytes [#/volume] in Blood by Automated count 1.00-4.8 [facility] Lymphocytes/100 WBC Auto (Bl d)Ordered By: Zeinab Wood on 09-20-2024 Lymphocytes/100 WBC (Bld) Lymphocytes/100 leukocytes in Blood by Automated count . [facility] MCH Auto (RBC) [Entitic mass ]Ordered By: Zeinab Wood on 09-20-2024 MCH (RBC) [Entitic mass] MCH [Entitic mass] by Automated count 24.7-34.3 [facility] MCHC Auto (RBC) [Mass/Vol]Or dered By: Zeinab Wood on 09-20-2024 MCHC (RBC) [Mass/Vol] MCHC [Mass/volume] by Automated count 32.0-35.0 [facility] MCV Auto (RBC) [Entitic vol] Ordered By: Zeinab Wood on 09-20-2024 MCV (RBC) [Entitic vol] MCV [Entitic vol ume] by Automated count 80-100 [facility] Monocytes Auto (Bld) [#/Vol] Ordered By: Zeinab Wood on 09-20-2024 Monocytes (Bld) [#/Vol] Automated blood monocyte count High 0.0-0.8 [facility] Monocytes/100 WBC Auto (Bld) Ordered By: Zeinab Wood on 09-20-2024 Monocytes/100 WBC (Bld) Automated monocyte % . [facility] Neutrophils Auto (Bld) [#/Vo l]Ordered By: Zeinab Wood on 09-20-2024 Neutrophils (Bld) [#/Vol] Neutrophils [#/volume] in Blood by Automated count 1.8-7.7 [facility] Neutrophils/100 WBC Auto (Bl d)Ordered By: Zeinab Wood on 09-20-2024 Neutrophils/100 WBC (Bld) Automated neutrophil % . [facility] Nucleated erythrocytes [Pres ence] in Blood by Automated countOrdered By: Zeinab Wood on 09-20-2024 Nucleated RBC Auto Ql (Bld) Nucleated erythrocytes [Presence] in Blood by Automated count 0-0.5 [facility] Platelet mean volume Auto (B ld) [Entitic vol]Ordered By: Zeinab Wood on 09-20-2024 Platelet mean volume (Bld) [Entitic vol] Platelet mean volume [Entitic volume] in Blood by Automated count 6.3-10.7 [facility] Platelets Auto (Bld) [#/Vol] Ordered By: Zeinab Wood on 09-20-2024 Platelets (Bld) [#/Vol] Platelets [#/vol ume] in Blood by Automated count 150-450 [facility] RBC Auto (Bld) [#/Vol]Ordere d By: Zeinab Wood on 09-20-2024 RBC (Bld) [#/Vol] Erythrocytes [#/volume] in Blood by Automated count 3.60-5.00 [facility] WBC Auto (Bld) [#/Vol]Ordere d By: Zeinab Wood on 09-20-2024 WBC (Bld) [#/Vol] Leukocytes [#/volume ] in Blood by Automated count 3.8-11.6 [facility] MM screening mammo BI w/CADo n 09-16-2024 MM screening mammo BI w/CAD [facility] Main [place] [address] [place] [address] Mammography Report Signed Patient: Kourtney Novak MR#: [id number] : 1975 Acct:[id number] Age/Sex: 48 / F ADM Date: 09/16/24 Loc: OR Room: Type: [facility] Attending Dr: Referral Self Copies to: Sammie [...] 1437 Signed By: 09/16/24 1440 Normal [facility] Mammography reportOrdered By : Lincoln Hoffmann on 09-16-2024 Diagnostic imaging study [facility] [place] [address] Mammography Report Signed Patient: Kourtney Novak MR#: [id number] : 1975 Acct:[id number] Age/Sex: 48 / F ADM Date: 5 Loc: OR Room: Type: [facility] Attending Dr: Referral Self Copies to: Sammie [...] Hoffmann MD 09/16/24 143 Signed By: 09/16/241439 [facility] Work Phone: Thyrotropin [Units/volume] i n Serum or PlasmaOrdered By: Sammie Gonzalez on 06-22-2024 TSH Qn 2.24 m[IU]/L Normal 0.45-5.33 [facility] Comment on above: Order Comment: PIPER ROBLERO Result Comment: PERF ORMED BY: [facility] [address] [place] [address] PATHOLOGIST DESIGN COORDINATOR MONIK SILVESTRE M.D. Performed By: #### T 3F, T4T, TSH3 ####[address] [address] [place] Thyroxine (T4) [Mass/volume] in Serum or PlasmaOrdered By: Sammie Gonzalez on 06-22-2024 T4 [Mass/Vol] 11.23 ug/dL Normal 5.39-11.82 [facility] Comment on above: Order Comment: PIPER ROBLERO Performed By: #### T 3F, T4T, TSH3 ####[address] [address] [place] Triiodothyronine (T3) Freeon 06-22-2024 Triiodothyronine (T3) Free 2.96 pg/mL Normal 2.50-3.90 [facility] Comment on above: Order Comment: PIPER ROBLERO Result Comment: PERF ORMED BY: [facility] [address] [place] [address] PATHOLOGIST DESIGN COORDINATOR MONIK SILVESTRE M.D. Performed By: #### T 3F, T4T, TSH3 ####[address] [address] [place] Triiodothyronine (T3) Free [ Mass/volume] in Serum or PlasmaOrdered By: Sammie Gonzalez on 06-22-2024 Free T3 [Mass/Vol] 2.96 pg/mL 2.50-3.90 [facility] CNOVon 05-30-2024 CNOV Office Visit (RHEUAV ) KOURTNEY NOVAK ([id number]) 1975 F Date Time Provider Department 05/30/24 [...] are p (more content not included)... Normal [facility] A1C with Estimated Average G veronican 05-12-2024 Glucose [Mass/Vol] 114 mg/dL Normal [facility] Comment on above: Order Comment: PIPER SANTOS. OgKW Result Comment: PERF ORMED BY: [place] [address] PATHOLOGIST DESIGN COORDINATOR MONIK SILVESTRE M.D. Performed By: #### T SH3, [id number], DIFF CBC, T3F, A1C WTH eA, CMP, FE, LIPID, [id number], T4T #### [address] #### INSULIN #### [facility] , Alanine aminotransferase [En zymatic activity/volume] in Serum or PlasmaOrdered By: Sammie Gonzalez on 05-12-2024 ALT [Catalytic activity/Vol] 17 U/L Normal 7-52 [facility] Comment on above: Order Comment: PIPER SANTOS. OgKW Performed By: #### T SH3, [id number], DIFF CBC, T3F, A1C WTH eA, CMP, FE, LIPID, [id number], T4T ####[place] [address] [address]#### INSULIN ####[facility] , Albumin [Mass/volume] in Ser um or Plasma by Bromocresol green (BCG) dye binding methoOrdered By: Sammie Gonzalez on 05-12-2024 Albumin BCG dye [Mass/Vol] 4.1 g/dL 3.5-5.7 [facility] Alkaline phosphatase [Enzyma tic activity/volume] in Serum or PlasmaOrdered By: Sammie Gonzalez on 05-12-2024 ALP [Catalytic activity/Vol] 42 U/L Normal 34-104 [facility] Comment on above: Order Comment: FASTI NG. JKW Performed By: #### T SH3, [id number], DIFF CBC, T3F, A1C WTH eA, CMP, FE, LIPID, [id number], T4T ####[address]#### INSULIN ####[facility] , Anisocytosis [Presence] in B lood by Light microscopyOrdered By: Sammie Gonzalez on 05-12-2024 Anisocytosis Ql (Bld) Slight Normal [facility] Comment on above: Order Comment: FASTI NG. JKW Performed By: #### T SH3, [id number], DIFF CBC, T3F, A1C WTH eA, CMP, FE, LIPID, [id number], T4T ####[address]#### INSULIN ####[facility] , Aspartate aminotransferase [ Enzymatic activity/volume] in Serum or PlasmaOrdered By: Sammie Gonzalez on 05-12-2024 AST [Catalytic activity/Vol] 11 U/L Low 13-39 [facility] Comment on above: Order Comment: FASTI NG. JKW Performed By: #### T SH3, [id number], DIFF CBC, T3F, A1C WTH eA, CMP, FE, LIPID, [id number], T4T ####[place] [address] [place] [id number] [place]#### INSULIN ####[facility] , Basophils Auto (Bld) [#/Vol] Ordered By: Sammie Gonzalez on 05-12-2024 Basophils (Bld) [#/Vol] N/A [facility] Basophils/100 WBC Auto (Bld) Ordered By: Sammie Gonzalez on 05-12-2024 Basophils/100 WBC (Bld) N/A [facility] Basophils/100 leukocytes in Blood by Manual countOrdered By: Sammie Gonzalez on 05-12-2024 Basophils/100 WBC (Bld) 1 % Normal 0-2 [facility] Comment on above: Order Comment: FASTI NG. JKW Performed By: #### T SH3, [id number], DIFF CBC, T3F, A1C WTH eA, CMP, FE, LIPID, [id number], T4T ####[address]#### INSULIN ####[facility] , Bilirubin.total [Mass/volume ] in Serum or PlasmaOrdered By: Sammie Gonzalez on 05-12-2024 Bilirubin [Mass/Vol] 0.4 mg/dL Normal 0.3-1.0 [facility] Comment on above: Order Comment: FASTI NG. JKW Performed By: #### T SH3, [id number], DIFF CBC, T3F, A1C WTH eA, CMP, FE, LIPID, [id number], T4T ####[address]#### INSULIN ####[facility] , Calcium [Mass/volume] in Ser um or PlasmaOrdered By: Sammie Gonzalez on 05-12-2024 Calcium [Mass/Vol] 9.4 mg/dL Normal 8.6-10.3 [facility] Comment on above: Order Comment: FASTI NG. JKW Performed By: #### T SH3, [id number], DIFF CBC, T3F, A1C WTH eA, CMP, FE, LIPID, [id number], T4T ####[address]#### INSULIN ####[facility] , Carbon dioxide, total [Moles /volume] in Serum or PlasmaOrdered By: Sammie Gonzalez on 05-12-2024 CO2 [Moles/Vol] 27.0 mmol/L Normal 21.0-31.0 [facility] Comment on above: Order Comment: FASTI NG. JKW Performed By: #### T SH3, [id number], DIFF CBC, T3F, A1C WTH eA, CMP, FE, LIPID, [id number], T4T ####[address]#### INSULIN ####[facility] , Chloride [Moles/volume] in S micki or PlasmaOrdered By: Sammie Gonzalez on 05-12-2024 Chloride [Moles/Vol] 101 mmol/L Normal 98-107 [facility] Comment on above: Order Comment: FASTI NG. JKW Performed By: #### T SH3, [id number], DIFF CBC, T3F, A1C WTH eA, CMP, FE, LIPID, [id number], T4T ####[address]#### INSULIN ####[facility] , Cholesterol [Mass/volume] in Serum or PlasmaOrdered By: Sammie Gonzalez on 05-12-2024 Cholesterol [Mass/Vol] 191 mg/dL Normal 140-200 [facility] Comment on above: Chol less than 200 m g/dl low riskChol 201-239 mg/dl borderline riskChol 240 mg/dl and greater high risk Order Comment: FASTI NG. JKW Result Comment: Chol less than 200 mg/dl low risk Chol 201-239 mg/dl borderline risk Chol 240 mg/dl and greater high risk Performed By: #### T SH3, [id number], DIFF CBC, T3F, A1C WTH eA, CMP, FE, LIPID, [id number], T4T ####[facility]#### INSULIN ####[facility] , Cholesterol in LDL Calc [Mas s/Vol]Ordered By: Sammie Gonzalez on 05-12-2024 Cholesterol in LDL [Mass/Vol] 76 mg/dL 0-100 [facility] Comment on above: LDL ATP III CLASSIFI CATIONLDL less than 100 mg/dL OptimalLDL 100-129 mg/dL Near or above optimalLDL 130-159 mg/dL Borderline highLDL 160-189 mg/dL HighLDL greater than 189 mg/dL Very high Cholesterol in VLDL Calc [Ma ss/Vol]Ordered By: Sammie Gonzalez on 05-12-2024 Cholesterol in VLDL [Mass/Vol] 29 mg/dL [facility] Comprehensive Metabolic Pane costa 05-12-2024 Albumin [Mass/Vol] 4.1 g/dL Normal 3.5-5.7 [facility] Comment on above: Order Comment: FASTI NG. JKW Performed By: #### T SH3, [id number], DIFF CBC, T3F, A1C WTH eA, CMP, FE, LIPID, [id number], T4T ####[place] [address] [address]#### INSULIN ####[facility] , GFR/1.73 sq M.predicted MDRD (S/P/Bld) [Vol rate/Area] mL/min/{1.73_m2} Normal [facility] Comment on above: Order Comment: FASTI NG. JKW Performed By: #### T SH3, [id number], DIFF CBC, T3F, A1C WTH eA, CMP, FE, LIPID, [id number], T4T ####[place] [address] [address]#### INSULIN ####[facility] , Creatinine [Mass/volume] in Serum or PlasmaOrdered By: Sammie Gonzalez on 05-12-2024 Creatinine [Mass/Vol] 1.05 mg/dL Normal 0.60-1.20 [facility] Comment on above: Order Comment: FASTI NG. JKW Performed By: #### T SH3, [id number], DIFF CBC, T3F, A1C WTH eA, CMP, FE, LIPID, [id number], T4T ####[address]#### INSULIN ####[facility] , Diff and CBCon 05-12-2024 Mean Corpuscular HGB Conc 33.0 g/dL Normal 32.0-35.0 [facility] Comment on above: Order Comment: FASTI NG. JKW Performed By: #### T SH3, [id number], DIFF CBC, T3F, A1C WTH eA, CMP, FE, LIPID, [id number], T4T ####[address]#### INSULIN ####[facility] , Metamyelocytes 2 % High 0-[address] [facility] Comment on above: Order Comment: FASTI NG. JKW Performed By: #### T SH3, [id number], DIFF CBC, T3F, A1C WTH eA, CMP, FE, LIPID, [id number], T4T ####[address]#### INSULIN ####[facility] , Microcytosis Slight Normal [facility] Comment on above: Order Comment: FASTI NG. JKW Performed By: #### T SH3, [id number], DIFF CBC, T3F, A1C WTH eA, CMP, FE, LIPID, [id number], T4T ####[address]#### INSULIN ####[facility] , Platelet Estimate Normal Normal Normal [facility] Comment on above: Order Comment: FASTI NG. JKW Performed By: #### T SH3, [id number], DIFF CBC, T3F, A1C WTH eA, CMP, FE, LIPID, [id number], T4T ####[place] [address] [address]#### INSULIN ####[facility] , Platelet Morphology Normal Normal Normal [facility] Comment on above: Order Comment: FASTI DANIELLE. JKW Result Comment: PERF ORMED BY: [facility] [address] [place] [address] PATHOLOGIST DESIGN COORDINATOR MONIK SILVESTRE M.D. Performed By: #### T SH3, [id number], DIFF CBC, T3F, A1C WTH eA, CMP, FE, LIPID, [id number], T4T ####[address]#### INSULIN ####[facility] , Eosinophils Auto (Bld) [#/Vo l]Ordered By: Sammie Gonzalez on 05-12-2024 Eosinophils (Bld) [#/Vol] N/A [facility] Eosinophils/100 WBC Auto (Bl d)Ordered By: Sammie Gonzalez on 05-12-2024 Eosinophils/100 WBC (Bld) N/A [facility] Eosinophils/100 leukocytes i n Blood by Manual countOrdered By: Sammie Gonzalez on 05-12-2024 Eosinophils/100 WBC (Bld) 2 % Normal 1-3 [facility] Comment on above: Order Comment: FASTI NG. JKW Performed By: #### T SH3, [id number], DIFF CBC, T3F, A1C WTH eA, CMP, FE, LIPID, [id number], T4T ####[address]#### INSULIN ####[facility] , Erythrocyte distribution wid th [Ratio] by Automated countOrdered By: Sammie Gonzalez on 05-12-2024 Erythrocyte distribution width (RBC) [Ratio] 13.9 % Normal 11.9-15.3 [facility] Comment on above: Order Comment: FASTI NG. JKW Performed By: #### T SH3, [id number], DIFF CBC, T3F, A1C WTH eA, CMP, FE, LIPID, [id number], T4T ####[facility] [id number] [address]#### INSULIN ####[facility] , Erythrocytes [#/volume] in B lood by Automated countOrdered By: Sammie Gonzalez on 05-12-2024 RBC (Bld) [#/Vol] 4.30 10*6/uL Normal 3.60-5.00 [facility] Comment on above: Order Comment: FASTI NG. JKW Performed By: #### T SH3, [id number], DIFF CBC, T3F, A1C WTH eA, CMP, FE, LIPID, [id number], T4T ####[facility] [id number] [address]#### INSULIN ####[facility] , Folate [Mass/volume] in Seru m or PlasmaOrdered By: Sammie Gonzalez on 05-12-2024 Folate [Mass/Vol] 7.8 ng/mL >5.9 [facility] Comment on above: Folate reference ran ge: >5.9 ng/mlThe WHO technical consultation on folate and vitamin [id number] has determined that folate concentrations lessthan 4 ng/ml are considered deficient. Glucose [Mass/volume] in Ser um or PlasmaOrdered By: Sammie Gonzalez on 05-12-2024 Glucose [Mass/Vol] 111 mg/dL High 70-100 [facility] Comment on above: ADA recommended refe rence rangeRandom Glucose Reference Range is dependent on time and content of last meal. Glucose of more than 200 mg/dL in a nonstressed, ambulatory subject supports the diagnosis of Diabetes Mellitus. Order Comment: FASTI NG. JKW Result Comment: [place] om Glucose Reference Range is dependent on time and content of last meal. Glucose of more than 200 mg/dL in a nonstressed, ambulatory subject supports the diagnosis of Diabetes Mellitus. ADA recommended reference range Performed By: #### T SH3, [id number], DIFF CBC, T3F, A1C WTH eA, CMP, FE, LIPID, [id number], T4T ####[facility]#### INSULIN ####[facility] , Glucose mean value [Mass/vol ume] in Blood Estimated from glycated hemoglobinOrdered By: Sammie Gonzalez on 05-12-2024 Average glucose Estimated from glycated hemoglobin (Bld) [Mass/Vol] 114 mg/dL [facility] Hematocrit [Volume Fraction] of Blood by Automated countOrdered By: Sammie Gonzalez on 05-12-2024 Hematocrit (Bld) [Volume fraction] 39.1 % Normal 34.0-46.4 [facility] Comment on above: Order Comment: PIPER STEWARTW Performed By: #### T SH3, [id number], DIFF CBC, T3F, A1C WTH eA, CMP, FE, LIPID, [id number], T4T ####[address]#### INSULIN ####[facility] , Hemoglobin A1c percentageOrd ered By: Sammie Gonzalez on 05-12-2024 HbA1c (Bld) [Mass fraction] 5.6 % Normal 4.3-5.6 [facility] Comment on above: Increased risk for d iabetes: 5.7 - 6.4diabetes: >6.4glycemic control for adults with diabetes: <7.0 Order Comment: PIPER FoleyKW Result Comment: Incr eased risk for diabetes: 5.7 - 6.4 diabetes: >6.4 glycemic control for adults with diabetes: <7.0 Performed By: #### T SH3, [id number], DIFF CBC, T3F, A1C WTH eA, CMP, FE, LIPID, [id number], T4T #### [facility] [address] #### INSULIN #### [facility] , Hemoglobin [Mass/volume] in BloodOrdered By: Sammie Gonzalez on 05-12-2024 Hemoglobin (Bld) [Mass/Vol] 12.9 g/dL Normal 11.8-15.4 [facility] Comment on above: Order Comment: FASTI NG. JKW Performed By: #### T SH3, [id number], DIFF CBC, T3F, A1C WTH eA, CMP, FE, LIPID, [id number], T4T ####[place] [address] [address]#### INSULIN ####[facility] , Insulinon 05-12-2024 Insulin 38.1 u[iU]/mL High 2.6-24.9 [facility] Comment on above: Order Comment: FASTI NG. JKW Result Comment: Perf ormed at: - [facility] [address] [id number] Manager Bench: Maxim Daniel PhD, Phone: [phone] PERFORMED BY: [facility] [address] [place] [address] PATHOLOGIST DESIGN COORDINATOR MONIK SILVESTRE M.D. Performed By: #### T SH3, [id number], DIFF CBC, T3F, A1C WTH eA, CMP, FE, LIPID, [id number], T4T ####[address]#### INSULIN ####[facility] , Iron [Mass/volume] in Serum or PlasmaOrdered By: Sammie Gonzalez on 05-12-2024 Iron [Mass/Vol] 80 ug/dL Normal 50-212 [facility] Comment on above: Order Comment: FASTI NG. JKW Performed By: #### T SH3, [id number], DIFF CBC, T3F, A1C WTH eA, CMP, FE, LIPID, [id number], T4T ####[address]#### INSULIN ####[facility] , Leukocytes [#/volume] correc jana for nucleated erythrocytes in Blood by Automated counOrdered By: Sammie Gonzalez on 05-12-2024 WBC corrected for nucl RBC Auto (Bld) [#/Vol] 11.8 10*3/uL High 3.8-11.6 [facility] Leukocytes [#/volume] in Blo od by Automated countOrdered By: Sammie Gonzalez on 05-12-2024 WBC (Bld) [#/Vol] 11.8 10*3/uL High 3.8-11.6 [facility] Comment on above: Order Comment: FASTI NG. JKW Performed By: #### T SH3, [id number], DIFF CBC, T3F, A1C WTH eA, CMP, FE, LIPID, [id number], T4T ####[facility]#### INSULIN ####[facility] , Lipid Panelon 05-12-2024 LDL Cholesterol,Calculated 76 mg/dL Normal 0-100 [facility] Comment on above: Order Comment: FASTI NG. JKW Result Comment: LDL ATP III CLASSIFICATION LDL less than 100 mg/dL Optimal LDL 100-129 mg/dL Near or above optimal LDL 130-159 mg/dL Borderline high LDL 160-189 mg/dL High LDL greater than 189 mg/dL Very high Performed By: #### T SH3, [id number], DIFF CBC, T3F, A1C WTH eA, CMP, FE, LIPID, [id number], T4T ####[place] [address] [address]#### INSULIN ####[facility] , Triglyceride w/Reflex 146 mg/dL Normal 0-149 [facility] Comment on above: Order Comment: FASTI NG. JKW Result Comment: TRIG ATP III CLASSIFICATION TRIG less than 150 mg/dL Normal TRIG 150-199 mg/dL Borderline high TRIG 200-500 mg/dL High TRIG greater than 500 mg/dL Very high Standard traceable to the Center for Disease Conrtrol and Prevention (CDC) test method. Performed By: #### T SH3, [id number], DIFF CBC, T3F, A1C WTH eA, CMP, FE, LIPID, [id number], T4T ####[place] [address] [address]#### INSULIN ####[facility] , VLDL CHOLESTEROL 29 mg/dL Normal [facility] Comment on above: Order Comment: FASTI NG. JKW Performed By: #### T SH3, [id number], DIFF CBC, T3F, A1C WTH eA, CMP, FE, LIPID, [id number], T4T ####[address]#### INSULIN ####[facility] , Lymphocytes Auto (Bld) [#/Vo l]Ordered By: Sammie Gonzalez on 05-12-2024 Lymphocytes (Bld) [#/Vol] N/A [facility] Lymphocytes/100 WBC Auto (Bl d)Ordered By: Sammie Gonzalez on 05-12-2024 Lymphocytes/100 WBC (Bld) N/A [facility] Lymphocytes/100 leukocytes i n Blood by Manual countOrdered By: Sammie Gonzalez on 05-12-2024 Lymphocytes/100 WBC (Bld) 28 % Normal 18-42 [facility] Comment on above: Order Comment: FASTI NG. JKW Performed By: #### T SH3, [id number], DIFF CBC, T3F, A1C WTH eA, CMP, FE, LIPID, [id number], T4T ####[address]#### INSULIN ####[facility] , MCH [Entitic mass] by Automa jana countOrdered By: Sammie Gonzalez on 05-12-2024 MCH (RBC) [Entitic mass] 29.9 pg Normal 24.7-34.3 [facility] Comment on above: Order Comment: FASTI NG. JKW Performed By: #### T SH3, [id number], DIFF CBC, T3F, A1C WTH eA, CMP, FE, LIPID, [id number], T4T ####[address] [place] [address] [place]#### INSULIN ####[facility] , MCHC Auto (RBC) [Mass/Vol]Or dered By: Sammie Gonzalez on 05-12-2024 MCHC (RBC) [Mass/Vol] 33.0 g/dL 32.0-35.0 [facility] MCV [Entitic volume] by Auto mated countOrdered By: Sammie Gonzalez on 05-12-2024 MCV (RBC) [Entitic vol] 90.8 fL Normal 80-100 [facility] Comment on above: Order Comment: FASTI NG. JKW Performed By: #### T SH3, [id number], DIFF CBC, T3F, A1C WTH eA, CMP, FE, LIPID, [id number], T4T ####[address]#### INSULIN ####[facility] , Manual blood segmented neutr ophils/100 leukocytesOrdered By: Sammie Gonzalez on 05-12-2024 Segmented neutrophils/100 WBC (Bld) 54 % Normal 50-70 [facility] Comment on above: Order Comment: FASTI NG. JKW Performed By: #### T SH3, [id number], DIFF CBC, T3F, A1C WTH eA, CMP, FE, LIPID, [id number], T4T ####[address]#### INSULIN ####[facility] , Metamyelocytes/100 WBC Manua l cnt (Bld)Ordered By: Sammie Gonzalez on 05-12-2024 Metamyelocytes/100 WBC (Bld) 2 % High 0-0 [facility] Microcytes LM Ql (Bld)Ordere d By: Sammie Gonzalez on 05-12-2024 Microcytes Ql (Bld) Slight [facility] Monocytes Auto (Bld) [#/Vol] Ordered By: Sammie Gonzalez on 05-12-2024 Monocytes (Bld) [#/Vol] N/A [facility] Monocytes/100 WBC Auto (Bld) Ordered By: Sammie Gonzalez on 05-12-2024 Monocytes/100 WBC (Bld) N/A [facility] Monocytes/100 leukocytes in Blood by Manual countOrdered By: Sammie Gonzalez on 05-12-2024 Monocytes/100 WBC (Bld) 12 % High 2-11 [facility] Comment on above: Order Comment: FASTI NG. JKW Performed By: #### T SH3, [id number], DIFF CBC, T3F, A1C WTH eA, CMP, FE, LIPID, [id number], T4T ####[facility] Rsy[address]43 [address]#### INSULIN ####[facility] , Neutrophils Auto (Bld) [#/Vo l]Ordered By: Sammie Gonzalez on 05-12-2024 Neutrophils (Bld) [#/Vol] N/A [facility] Neutrophils/100 WBC Auto (Bl d)Ordered By: Sammie Gonzalez on 05-12-2024 Neutrophils/100 WBC (Bld) N/A [facility] No Panel InformationOrdered By: Sammie Gonzalez on 05-12-2024 Estimated GFR (CKD-EPI) > 60.0 mL/Min [facility] Creatinine Clearance (Chem N/A [facility] Nucleated erythrocytes [Pres ence] in Blood by Automated countOrdered By: Sammie Gonzalez on 05-12-2024 Nucleated RBC Auto Ql (Bld) N/A [facility] Peripheral white blood cell differential % bands, microscopic examOrdered By: Sammie Gonzalez on 05-12-2024 Band form neutrophils/100 WBC (Bld) 1 % Normal 0-5 [facility] Comment on above: Order Comment: FASTI NG. JKW Performed By: #### T SH3, [id number], DIFF CBC, T3F, A1C WTH eA, CMP, FE, LIPID, [id number], T4T ####[facility] [id number] [place] [address] [place]#### INSULIN ####[facility] , Platelet adequacy [Presence] in Blood by Light microscopyOrdered By: Sammie Gonzalez on 05-12-2024 Platelets LM Ql (Bld) Normal Normal [facility] Platelet mean volume [Entiti c volume] in Blood by Automated countOrdered By: Sammie Gonzalez on 05-12-2024 Platelet mean volume (Bld) [Entitic vol] 8.1 fL Normal 6.3-10.7 [facility] Comment on above: Order Comment: FASTI DANIELLE. JKW Performed By: #### T SH3, [id number], DIFF CBC, T3F, A1C WTH eA, CMP, FE, LIPID, [id number], T4T ####[place] [address] [address]#### INSULIN ####[facility] , Platelet morphology finding [Identifier] in BloodOrdered By: Sammie Gonzalez on 05-12-2024 Platelet morphology finding Nom (Bld) Normal Normal [facility] Platelets [#/volume] in Bloo d by Automated countOrdered By: Sammie Gonzalez on 05-12-2024 Platelets (Bld) [#/Vol] 392 10*3/uL Normal 150-450 [facility] Comment on above: Order Comment: FASTI NG. JKW Performed By: #### T SH3, [id number], DIFF CBC, T3F, A1C WTH eA, CMP, FE, LIPID, [id number], T4T ####[place] [address] [place] [address] [place]#### INSULIN ####[facility] , Potassium [Moles/volume] in Serum or PlasmaOrdered By: Sammie Gonzalez on 05-12-2024 Potassium [Moles/Vol] 4.1 mmol/L Normal 3.5-5.1 [facility] Comment on above: Order Comment: FASTI NG. JKW Performed By: #### T SH3, [id number], DIFF CBC, T3F, A1C WTH eA, CMP, FE, LIPID, [id number], T4T ####[facility] [place] [id number] [place]#### INSULIN ####[facility] , Protein [Mass/volume] in Ser um or PlasmaOrdered By: Sammie Gonzalez on 05-12-2024 Protein [Mass/Vol] 6.1 g/dL Low 6.4-8.9 [facility] Comment on above: Order Comment: FASTI NG. JKW Performed By: #### T SH3, [id number], DIFF CBC, T3F, A1C WTH eA, CMP, FE, LIPID, [id number], T4T ####[facility] [id number]#### INSULIN ####[facility] , RBC morphologyOrdered By: Do erik Gonzalez on 05-12-2024 RBC morphology finding Nom (Bld) N/A [facility] Serum globulin measurement b y calculation (mass/volume)Ordered By: Sammie Gonzalez on 05-12-2024 Globulin (S) [Mass/Vol] 2.0 g/dL [facility] Comment on above: Order Comment: FASTI NG. JKW Performed By: #### T SH3, [id number], DIFF CBC, T3F, A1C WTH eA, CMP, FE, LIPID, [id number], T4T ####[facility]#### INSULIN ####[facility] , Serum or plasma albumin/glob ulin mass ratioOrdered By: Sammie Gonzalez on 05-12-2024 Albumin/Globulin [Mass ratio] 2.1 {ratio} Normal [facility] Comment on above: Order Comment: FASTI NG. JKW Performed By: #### T SH3, [id number], DIFF CBC, T3F, A1C WTH eA, CMP, FE, LIPID, [id number], T4T ####[facility]#### INSULIN ####[facility] , Serum or plasma anion gap de terminationOrdered By: Sammie Gonzalez on 05-12-2024 Anion gap [Moles/Vol] 12.1 mmol/L Normal 6.0-15.0 [facility] Comment on above: Order Comment: PIPER FoleyKW Performed By: #### T SH3, [id number], DIFF CBC, T3F, A1C WTH eA, CMP, FE, LIPID, [id number], T4T ####[facility] [id number]#### INSULIN ####[facility] , Serum or plasma high density lipoprotein (HDL) cholesterol measurementOrdered By: Sammie Gonzalez on 05-12-2024 Cholesterol in HDL [Mass/Vol] 86 mg/dL Normal 23-92 [facility] Comment on above: HDL CHOL ATP-III CLA SSIFICATION Cardiovascular RiskHDL > or equal to 60 mg/dL LOWHDL < 40 mg/dL HIGH Order Comment: PIPER FoleyKW Result Comment: HDL CHOL ATP-III CLASSIFICATION Cardiovascular Risk HDL > or equal to 60 mg/dL LOW HDL < 40 mg/dL HIGH Performed By: #### T SH3, [id number], DIFF CBC, T3F, A1C WTH eA, CMP, FE, LIPID, [id number], T4T ####[facility] [id number]#### INSULIN ####[facility] , Serum or plasma insulin kiara urement (units/volume)Ordered By: Sammie Gonzalez on 05-12-2024 Insulin Qn 38.1 u[iU]/mL High 2.6-24.9 [facility] Comment on above: Performed at: [address] Director: Maxim Daniel PhD, Phone: [phone] Serum or plasma total choles terol/high density lipoprotein (HDL) cholesterol mass ratOrdered By: Sammie Gonzalez on 05-12-2024 Cholesterol.total/Tali sterol in HDL [Mass ratio] 2.2 {ratio} Normal <5.0 [facility] Comment on above: Order Comment: FASTI NG. JKW Performed By: #### T SH3, [id number], DIFF CBC, T3F, A1C WTH eA, CMP, FE, LIPID, [id number], T4T ####[address]#### INSULIN ####[facility] , Sodium [Moles/volume] in Ser um or PlasmaOrdered By: Sammie Gonzalez on 05-12-2024 Sodium [Moles/Vol] 136 mmol/L Normal 136-145 [facility] Comment on above: Order Comment: FASTI NG. JKW Performed By: #### T SH3, [id number], DIFF CBC, T3F, A1C WTH eA, CMP, FE, LIPID, [id number], T4T ####[address]#### INSULIN ####[facility] , Thyrotropin [Units/volume] i n Serum or PlasmaOrdered By: Sammie Gonzalez on 05-12-2024 TSH Qn 6.32 m[IU]/L High 0.45-5.33 [facility] Comment on above: Order Comment: FASTI NG. JKW Performed By: #### T SH3, [id number], DIFF CBC, T3F, A1C WTH eA, CMP, FE, LIPID, [id number], T4T ####[place] [address] [place]#### INSULIN ####[facility] , Thyroxine (T4) [Mass/volume] in Serum or PlasmaOrdered By: Sammie Gonzalez on 05-12-2024 T4 [Mass/Vol] 11.59 ug/dL Normal 5.39-11.82 [facility] Comment on above: Order Comment: FASTI NG. JKW Performed By: #### T SH3, [id number], DIFF CBC, T3F, A1C WTH eA, CMP, FE, LIPID, [id number], T4T ####[address]#### INSULIN ####[facility] , Triglyceride [Mass/volume] i n Serum or PlasmaOrdered By: Sammie Gonzalez on 05-12-2024 Triglyceride [Mass/Vol] 146 mg/dL 0-149 [facility] Comment on above: TRIG ATP III CLASSIF ICATIONTRIG less than 150 mg/dL NormalTRIG 150-199 mg/dL Borderline highTRIG 200-500 mg/dL High TRIG greater than 500 mg/dL Very highStandard traceable to the Center for Disease Conrtrol and Prevention (CDC) test method. Triiodothyronine (T3) Freeon 05-12-2024 Triiodothyronine (T3) Free 3.61 pg/mL Normal 2.50-3.90 [facility] Comment on above: Order Comment: PIPER FoleyKW Result Comment: PERF ORMED BY: [facility] [address] [place] [address] PATHOLOGIST DESIGN COORDINATOR MONIK SILVESTRE M.D. Performed By: #### T SH3, [id number], DIFF CBC, T3F, A1C WTH eA, CMP, FE, LIPID, [id number], T4T #### [facility] [address] #### INSULIN #### [facility] , Triiodothyronine (T3) Free [ Mass/volume] in Serum or PlasmaOrdered By: Sammie Gonzalez on 05-12-2024 Free T3 [Mass/Vol] 3.61 pg/mL 2.50-3.90 [facility] Urea nitrogen [Mass/volume] in Serum or PlasmaOrdered By: Sammie Gonzalez on 05-12-2024 Urea nitrogen [Mass/Vol] 20 mg/dL Normal 7-25 [facility] Comment on above: Order Comment: PIPER SANTOS. OgKW Performed By: #### T SH3, [id number], DIFF CBC, T3F, A1C WTH eA, CMP, FE, LIPID, [id number], T4T ####[facility] C[address] [place] [address] [place]#### INSULIN ####[facility] , Vit. B12/Folate Profileon Folate 7.8 ng/mL Normal >5.9 [facility] Comment on above: Order Comment: PIPER FoleyKW Result Comment: Jonna te reference range: >5.9 ng/ml The WHO technical consultation on folate and vitamin b12 deficiencies has determined that folate concentrations less than 4 ng/ml are considered deficient. Performed By: #### T SH3, [id number], DIFF CBC, T3F, A1C WTH eA, CMP, FE, LIPID, [id number], T4T ####[place] [address] [address]#### INSULIN ####[facility] , Vitamin B12 ser/plasOrdered By: Sammie Gonzalez on 05-12-2024 Cobalamin (Vitamin B12) [Mass/Vol] 306 pg/mL Normal 180-914 [facility] Comment on above: Order Comment: PIPER FoleyKW Performed By: #### T SH3, [id number], DIFF CBC, T3F, A1C WTH eA, CMP, FE, LIPID, [id number], T4T ####[place] [address] [address]#### INSULIN ####[facility] , Vitamin D 25 Hydroxy Totalon 05-12-2024 Vitamin D 25 Hydroxy Total 39.9 ng/mL Normal 30-100 [facility] Comment on above: Order Comment: PIPER BOX JKW Result Comment: THERESE MIN D STATUS 25(OH)VITAMIN D RANGE (ng/mL) Deficient <20 Insufficient 20 to <30 Sufficient 30 to 100 Reference: Nain MF,Anum NC, Galen-Juan Carlos APARICIO, et al. Evaluation,treatment, and prevention of vitamin D deficiency; an Endocrine Society clinical practice guideline. JCEM. 2010; 96(7):1911-30. PERFORMED BY: [place] [address] PATHOLOGIST DESIGN COORDINATOR MONIK SILVESTRE M.D. Performed By: #### T SH3, [id number], DIFF CBC, T3F, A1C WTH eA, CMP, FE, LIPID, [id number], T4T ####[facility] [id number]critical [place] [address] [place]#### INSULIN ####[facility] , Vitamin D+Metabolites [Mass/ volume] in Serum or PlasmaOrdered By: Sammie Gonzalez on 05-12-2024 Vitamin D+Metabolites [Mass/Vol] 39.9 ng/mL 30-100 [facility] Comment on above: VITAMIN D STATUS 25( [...] soft tissue component identified in the orbit. Drum Tester: PSCB Transcribe Date/Time: Jan 31 2024 3:33P Dictated by : NATIVIDAD PRIEST MD This examination was interpreted and the report reviewed and electronically signed by: NATIVIDAD PRIEST MD on Jan 31 2024 3:37PM EST [id number] N Normal [facility] MRI SKULL BASE WO/W IVCONon 01-29-2024 MRI SKULL BASE WO/W IVCON * * *Final Report* * * DATE OF EXAM: Jan 29 2024 1:56PM [facility] 0319 - MRI SKULL BASE WO/W [...] tissue mass extending into the of the life trainer or parapharyngeal spaces. The soft tissue planes of the, retropharyngeal, and prevertebral spaces are maintained. The visualized parotid glands are normal in appearance. Nasopharynx/Oropharyn x: The nasopharynx and oropharynx are normal in appearance. 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 Drum Tester: [facility] Transcribe Date/Time: Jan 31 2024 5:10P Dictated by : WESTLEY IYER MD This examination was interpreted and the report reviewed and electronically signed by: WESTLEY IYER MD on Jan 31 2024 5:28PM EST [id number] N Normal [facility] Alanine aminotransferase [En zymatic activity/volume] in Serum or PlasmaOrdered By: Zeinab Wood on 01-08-2024 ALT [Catalytic activity/Vol] 22 U/L 7-52 [facility] Aspartate aminotransferase [ Enzymatic activity/volume] in Serum or PlasmaOrdered By: Zeinab Wood on 01-08-2024 AST [Catalytic activity/Vol] 16 U/L 13-39 [facility] Basophils Auto (Bld) [#/Vol] Ordered By: Zeinab Wood on 01-08-2024 Basophils (Bld) [#/Vol] 0.1 10*3/uL 0.0-0.2 [facility] Basophils/100 WBC Auto (Bld) Ordered By: Zeinab Wood on 01-08-2024 Basophils/100 WBC (Bld) 1.1 % . [facility] Creatinine [Mass/volume] in Serum or PlasmaOrdered By: Zeinab Wood on 01-08-2024 Creatinine [Mass/Vol] 1.00 mg/dL 0.60-1.20 [facility] Eosinophils Auto (Bld) [#/Vo l]Ordered By: Zeinab Wood on 01-08-2024 Eosinophils (Bld) [#/Vol] 0.1 10*3/uL 0.0-0.45 [facility] Eosinophils/100 WBC Auto (Bl d)Ordered By: Zeinab Wood on 01-08-2024 Eosinophils/100 WBC (Bld) 1.8 % . [facility] Erythrocyte distribution wid th Auto (RBC) [Ratio]Ordered By: Zeinab Wood on 01-08-2024 Erythrocyte distribution width (RBC) [Ratio] 13.1 % 11.9-15.3 [facility] Hematocrit Auto (Bld) [Volum e fraction]Ordered By: Zeinab Wood on 01-08-2024 Hematocrit (Bld) [Volume fraction] 39.2 % 34.0-46.4 [facility] Hemoglobin [Mass/volume] in BloodOrdered By: Zeinab Wood on 01-08-2024 Hemoglobin (Bld) [Mass/Vol] 13.1 g/dL 11.8-15.4 [facility] Leukocytes [#/volume] correc jana for nucleated erythrocytes in Blood by Automated counOrdered By: Zeinab Wood on 01-08-2024 WBC corrected for nucl RBC Auto (Bld) [#/Vol] 6.8 10*3/uL 3.8-11.6 [facility] Lymphocytes Auto (Bld) [#/Vo l]Ordered By: Zeinab Wood on 01-08-2024 Lymphocytes (Bld) [#/Vol] 2.0 10*3/uL 1.00-4.8 [facility] Lymphocytes/100 WBC Auto (Bl d)Ordered By: Zeinab Wood on 01-08-2024 Lymphocytes/100 WBC (Bld) 29.3 % . [facility] MCH Auto (RBC) [Entitic mass ]Ordered By: Zeinab Wood on 01-08-2024 MCH (RBC) [Entitic mass] 30.6 pg 24.7-34.3 [facility] MCHC Auto (RBC) [Mass/Vol]Or dered By: Zeinab Wood on 01-08-2024 MCHC (RBC) [Mass/Vol] 33.4 g/dL 32.0-35.0 [facility] MCV Auto (RBC) [Entitic vol] Ordered By: Zeinab Wood on 01-08-2024 MCV (RBC) [Entitic vol] 91.5 fL 80-100 [facility] Monocytes Auto (Bld) [#/Vol] Ordered By: Zienab Wood on 01-08-2024 Monocytes (Bld) [#/Vol] 0.8 10*3/uL 0.0-0.8 [facility] Monocytes/100 WBC Auto (Bld) Ordered By: Zeinab Wood on 01-08-2024 Monocytes/100 WBC (Bld) 11.3 % . [facility] Neutrophils Auto (Bld) [#/Vo l]Ordered By: Zeinab Wood on 01-08-2024 Neutrophils (Bld) [#/Vol] 3.9 10*3/uL 1.8-7.7 [facility] Neutrophils/100 WBC Auto (Bl d)Ordered By: Zeinab Wood on 01-08-2024 Neutrophils/100 WBC (Bld) 56.5 % . [facility] No Panel InformationOrdered By: Zeinab Wood on 01-08-2024 Estimated GFR (CKD-EPI) > 60.0 mL/Min [facility] Creatinine Clearance (Chem N/A [facility] Nucleated erythrocytes [Pres ence] in Blood by Automated countOrdered By: Zeinab Wood on 01-08-2024 Nucleated RBC Auto Ql (Bld) 0.1 /100{WBC} 0-0.5 [facility] Platelet mean volume Auto (B ld) [Entitic vol]Ordered By: Zeinab Wood on 01-08-2024 Platelet mean volume (Bld) [Entitic vol] 8.4 fL 6.3-10.7 [facility] Platelets Auto (Bld) [#/Vol] Ordered By: Zeinab Wood on 01-08-2024 Platelets (Bld) [#/Vol] 284 10*3/uL 150-450 [facility] RBC Auto (Bld) [#/Vol]Ordere d By: Zeinab Wood on 01-08-2024 RBC (Bld) [#/Vol] 4.29 10*6/uL 3.60-5.00 [facility] WBC Auto (Bld) [#/Vol]Ordere d By: Zeinab Wood on 01-08-2024 WBC (Bld) [#/Vol] 6.8 10*3/uL 3.8-11.6 [facility] Basophils Auto (Bld) [#/Vol] Ordered By: Sammie Gonzalez on 11-11-2023 Basophils (Bld) [#/Vol] 0.1 10*3/uL 0.0-0.2 [facility] Basophils/100 WBC Auto (Bld) Ordered By: Sammie Gonzalez on 11-11-2023 Basophils/100 WBC (Bld) 1.0 % . [facility] Eosinophils Auto (Bld) [#/Vo l]Ordered By: Sammie Gonzalez on 11-11-2023 Eosinophils (Bld) [#/Vol] 0.1 10*3/uL 0.0-0.45 [facility] Eosinophils/100 WBC Auto (Bl d)Ordered By: Sammie Gonzalez on 11-11-2023 Eosinophils/100 WBC (Bld) 1.3 % . [facility] Erythrocyte distribution wid th Auto (RBC) [Ratio]Ordered By: Sammie Gonzalez on 11-11-2023 Erythrocyte distribution width (RBC) [Ratio] 13.3 % 11.9-15.3 [facility] Ferritin [Mass/volume] in Se rum or PlasmaOrdered By: Sammie Gonzalez on 11-11-2023 Ferritin [Mass/Vol] 88.4 ng/mL 11.0-306.8 [facility] Hematocrit Auto (Bld) [Volum e fraction]Ordered By: Sammie Gonzalez on 11-11-2023 Hematocrit (Bld) [Volume fraction] 39.9 % 34.0-46.4 [facility] Hemoglobin [Mass/volume] in BloodOrdered By: Sammie Gonzalez on 11-11-2023 Hemoglobin (Bld) [Mass/Vol] 13.0 g/dL 11.8-15.4 [facility] Iron [Mass/volume] in Serum or PlasmaOrdered By: Sammie Gonzalez on 11-11-2023 Iron [Mass/Vol] 93 ug/dL 50-212 [facility] Leukocytes [#/volume] correc jana for nucleated erythrocytes in Blood by Automated counOrdered By: Sammie Gonzalez on 11-11-2023 WBC corrected for nucl RBC Auto (Bld) [#/Vol] 8.7 10*3/uL 3.8-11.6 [facility] Lymphocytes Auto (Bld) [#/Vo l]Ordered By: Sammie Gonzalez on 11-11-2023 Lymphocytes (Bld) [#/Vol] 3.7 10*3/uL 1.00-4.8 [facility] Lymphocytes/100 WBC Auto (Bl d)Ordered By: Sammie Gonzalez on 11-11-2023 Lymphocytes/100 WBC (Bld) 42.6 % . [facility] MCH Auto (RBC) [Entitic mass ]Ordered By: Sammie Gonzalez on 11-11-2023 MCH (RBC) [Entitic mass] 30.0 pg 24.7-34.3 [facility] MCHC Auto (RBC) [Mass/Vol]Or dered By: Sammie Gonzalez on 11-11-2023 MCHC (RBC) [Mass/Vol] 32.6 g/dL 32.0-35.0 [facility] MCV Auto (RBC) [Entitic vol] Ordered By: Sammie Gonzalez on 11-11-2023 MCV (RBC) [Entitic vol] 92.1 fL 80-100 [facility] Monocytes Auto (Bld) [#/Vol] Ordered By: Sammie Gonzalez on 11-11-2023 Monocytes (Bld) [#/Vol] 0.9 10*3/uL 0.0-0.8 [facility] Monocytes/100 WBC Auto (Bld) Ordered By: Sammie Gonzalez on 11-11-2023 Monocytes/100 WBC (Bld) 9.8 % . [facility] Neutrophils Auto (Bld) [#/Vo l]Ordered By: Sammie Gonzalez on 11-11-2023 Neutrophils (Bld) [#/Vol] 4.0 10*3/uL 1.8-7.7 [facility] Neutrophils/100 WBC Auto (Bl d)Ordered By: Sammie Gonzalez on 11-11-2023 Neutrophils/100 WBC (Bld) 45.3 % . [facility] Nucleated erythrocytes [Pres ence] in Blood by Automated countOrdered By: Sammie Gonzalez on 11-11-2023 Nucleated RBC Auto Ql (Bld) 0.1 /100{WBC} 0-0.5 [facility] Platelet mean volume Auto (B ld) [Entitic vol]Ordered By: Sammie Gonzalez on 11-11-2023 Platelet mean volume (Bld) [Entitic vol] 9.0 fL 6.3-10.7 [facility] Platelets Auto (Bld) [#/Vol] Ordered By: Sammie Gonzalez on 11-11-2023 Platelets (Bld) [#/Vol] 363 10*3/uL 150-450 [facility] RBC Auto (Bld) [#/Vol]Ordere d By: Sammie Gonzalez on 11-11-2023 RBC (Bld) [#/Vol] 4.34 10*6/uL 3.60-5.00 [facility] WBC Auto (Bld) [#/Vol]Ordere d By: Sammie Gonzalez on 11-11-2023 WBC (Bld) [#/Vol] 8.7 10*3/uL 3.8-11.6 [facility] Alanine aminotransferase [En zymatic activity/volume] in Serum or PlasmaOrdered By: Sammie Gonzalez on 05-22-2023 ALT [Catalytic activity/Vol] 14 U/L 7-52 [facility] Albumin [Mass/volume] in Ser um or Plasma by Bromocresol green (BCG) dye binding methoOrdered By: Sammie Gonzalez on 05-22-2023 Albumin BCG dye [Mass/Vol] 4.1 g/dL 3.5-5.7 [facility] Alkaline phosphatase [Enzyma tic activity/volume] in Serum or PlasmaOrdered By: Sammie Gonzalez on 05-22-2023 ALP [Catalytic activity/Vol] 45 U/L 34-104 [facility] Aspartate aminotransferase [ Enzymatic activity/volume] in Serum or PlasmaOrdered By: Sammie Gonzalez on 05-22-2023 AST [Catalytic activity/Vol] 12 U/L 13-39 [facility] Basophils Auto (Bld) [#/Vol] Ordered By: Sammie Gonzalez on 05-22-2023 Basophils (Bld) [#/Vol] 0.1 10*3/uL 0.0-0.2 [facility] Basophils/100 WBC Auto (Bld) Ordered By: Sammie Gonzalez on 05-22-2023 Basophils/100 WBC (Bld) 0.9 % . [facility] Bilirubin.total [Mass/volume ] in Serum or PlasmaOrdered By: Sammie Gonzalez on 05-22-2023 Bilirubin [Mass/Vol] 0.3 mg/dL 0.3-1.0 [facility] Calcium [Mass/volume] in Ser um or PlasmaOrdered By: Sammie Gonzalez 05-22-2023 Calcium [Mass/Vol] 9.5 mg/dL 8.6-10.3 [facility] Carbon dioxide, total [Moles /volume] in Serum or PlasmaOrdered By: Sammie Gonzalez on 05-22-2023 CO2 [Moles/Vol] 25.4 mmol/L 21.0-31.0 [facility] Chloride [Moles/volume] in S micki or PlasmaOrdered By: Sammie Gonzalez on 05-22-2023 Chloride [Moles/Vol] 106 mmol/L 98-107 [facility] Cholesterol [Mass/volume] in Serum or PlasmaOrdered By: Sammie Gonzalez on 05-22-2023 Cholesterol [Mass/Vol] 182 mg/dL 140-200 [facility] Comment on above: Chol less than 200 m g/dl low riskChol 201-239 mg/dl borderline riskChol 240 mg/dl and greater high risk Cholesterol in LDL Calc [Mas s/Vol]Ordered By: Sammie Gonzalez on 05-22-2023 Cholesterol in LDL [Mass/Vol] 58 mg/dL 0-100 [facility] Comment on above: LDL ATP III CLASSIFI CATIONLDL less than 100 mg/dL OptimalLDL 100-129 mg/dL Near or above optimalLDL 130-159 mg/dL Borderline highLDL 160-189 mg/dL HighLDL greater than 189 mg/dL Very high Cholesterol in VLDL Calc [Ma ss/Vol]Ordered By: Sammie Gonzalez on 05-22-2023 Cholesterol in VLDL [Mass/Vol] 44 mg/dL [facility] Creatinine [Mass/volume] in Serum or PlasmaOrdered By: Sammie Gonzalez on 05-22-2023 Creatinine [Mass/Vol] 0.89 mg/dL 0.60-1.20 [facility] Eosinophils Auto (Bld) [#/Vo l]Ordered By: Sammie Gonzalez on 05-22-2023 Eosinophils (Bld) [#/Vol] 0.1 10*3/uL 0.0-0.45 [facility] Eosinophils/100 WBC Auto (Bl d)Ordered By: Sammie Gonzalez on 05-22-2023 Eosinophils/100 WBC (Bld) 1.3 % . [facility] Erythrocyte distribution wid th Auto (RBC) [Ratio]Ordered By: Sammie Gonzalez on 05-22-2023 Erythrocyte distribution width (RBC) [Ratio] 20.4 % 11.9-15.3 [facility] Ferritin [Mass/volume] in Se rum or PlasmaOrdered By: Sammie Gonzalez on 05-22-2023 Ferritin [Mass/Vol] 147.2 ng/mL 11.0-306.8 [facility] Globulin Calc (S) [Mass/Vol] Ordered By: Sammie Gonzalez on 05-22-2023 Globulin (S) [Mass/Vol] 1.8 g/dL [facility] Glucose [Mass/volume] in Ser um or PlasmaOrdered By: Sammie Gonzalez on 05-22-2023 Glucose [Mass/Vol] 88 mg/dL 70-100 [facility] Comment on above: ADA recommended refe [...] from glycated hemoglobin (Bld) [Mass/Vol] 105 mg/dL [facility] Hematocrit Auto (Bld) [Volum e fraction]Ordered By: Sammie oGnzalez on 05-22-2023 Hematocrit (Bld) [Volume fraction] 37.0 % 34.0-46.4 [facility] Hemoglobin A1c percentageOrd ered By: Sammie Gonzalez on 05-22-2023 HbA1c (Bld) [Mass fraction] 5.3 % 4.3-5.6 [facility] Comment on above: Increased risk for d iabetes: 5.7 - 6.4diabetes: >6.4glycemic control for adults with diabetes: <7.0 Hemoglobin [Mass/volume] in BloodOrdered By: Sammie Gonzalez on 05-22-2023 Hemoglobin (Bld) [Mass/Vol] 11.9 g/dL 11.8-15.4 [facility] Iron [Mass/volume] in Serum or PlasmaOrdered By: Sammie Gonzalez on 05-22-2023 Iron [Mass/Vol] 57 ug/dL 50-212 [facility] Leukocytes [#/volume] correc jana for nucleated erythrocytes in Blood by Automated counOrdered By: Sammie Gonzalez on 05-22-2023 WBC corrected for nucl RBC Auto (Bld) [#/Vol] 9.6 10*3/uL 3.8-11.6 [facility] Lymphocytes Auto (Bld) [#/Vo l]Ordered By: Sammie Gonzalez on 05-22-2023 Lymphocytes (Bld) [#/Vol] 2.2 10*3/uL 1.00-4.8 [facility] Lymphocytes/100 WBC Auto (Bl d)Ordered By: Sammie Gonzalez on 05-22-2023 Lymphocytes/100 WBC (Bld) 22.5 % . [facility] MCH Auto (RBC) [Entitic mass ]Ordered By: Sammie Gonzalez on 05-22-2023 MCH (RBC) [Entitic mass] 27.7 pg 24.7-34.3 [facility] MCHC Auto (RBC) [Mass/Vol]Or dered By: Sammie Gonzalez on 05-22-2023 MCHC (RBC) [Mass/Vol] 32.2 g/dL 32.0-35.0 [facility] MCV Auto (RBC) [Entitic vol] Ordered By: Sammie Gonzalez on 05-22-2023 MCV (RBC) [Entitic vol] 85.8 fL 80-100 [facility] Monocytes Auto (Bld) [#/Vol] Ordered By: Sammie Gonzalez on 05-22-2023 Monocytes (Bld) [#/Vol] 1.0 10*3/uL 0.0-0.8 [facility] Monocytes/100 WBC Auto (Bld) Ordered By: Sammie Gonzalez on 05-22-2023 Monocytes/100 WBC (Bld) 9.9 % . [facility] Neutrophils Auto (Bld) [#/Vo l]Ordered By: Sammie Gonzalez on 05-22-2023 Neutrophils (Bld) [#/Vol] 6.3 10*3/uL 1.8-7.7 [facility] Neutrophils/100 WBC Auto (Bl d)Ordered By: Sammie Gonzalez on 05-22-2023 Neutrophils/100 WBC (Bld) 65.4 % . [facility] No Panel InformationOrdered By: Sammie Gonzalez on 05-22-2023 Estimated GFR (CKD-EPI) > 60.0 mL/Min [facility] Creatinine Clearance (Chem N/A [facility] Nucleated erythrocytes [Pres ence] in Blood by Automated countOrdered By: Sammie Gonzalez on 05-22-2023 Nucleated RBC Auto Ql (Bld) 0.1 /100{WBC} 0-0.5 [facility] Platelet mean volume Auto (B ld) [Entitic vol]Ordered By: Sammie Gonzalez on 05-22-2023 Platelet mean volume (Bld) [Entitic vol] 9.0 fL 6.3-10.7 [facility] Platelets Auto (Bld) [#/Vol] Ordered By: Sammie Gonzalez on 05-22-2023 Platelets (Bld) [#/Vol] 339 10*3/uL 150-450 [facility] Potassium [Moles/volume] in Serum or PlasmaOrdered By: Sammie Gonzalez on 05-22-2023 Potassium [Moles/Vol] 3.9 mmol/L 3.5-5.1 [facility] [facility] Protein [Mass/volume] in Ser um or PlasmaOrdered By: Sammie Gonzalez on 05-22-2023 Protein [Mass/Vol] 5.9 g/dL 6.4-8.9 [facility] RBC Auto (Bld) [#/Vol]Ordere d By: Sammie Gonzalez on 05-22-2023 RBC (Bld) [#/Vol] 4.31 10*6/uL 3.60-5.00 [facility] Serum or plasma albumin/glob ulin mass ratioOrdered By: Sammie Gonzalez on 05-22-2023 Albumin/Globulin [Mass ratio] 2.3 {ratio} [facility] Serum or plasma anion gap de terminationOrdered By: Sammie Gonzalez on 05-22-2023 Anion gap [Moles/Vol] 10.5 mmol/L 6.0-15.0 [facility] Serum or plasma high density lipoprotein (HDL) cholesterol measurementOrdered By: Sammie Gonzalez on 05-22-2023 Cholesterol in HDL [Mass/Vol] 79 mg/dL 23-92 [facility] Comment on above: HDL CHOL ATP-III CLA SSIFICATION Cardiovascular RiskHDL > or equal to 60 mg/dL LOWHDL < 40 mg/dL HIGH Serum or plasma total choles terol/high density lipoprotein (HDL) cholesterol mass ratOrdered By: Sammie Gonzalez on 05-22-2023 Cholesterol.total/Tali sterol in HDL [Mass ratio] 2.3 {ratio} <5.0 [facility] Sodium [Moles/volume] in Ser um or PlasmaOrdered By: Sammie Gonzalez on 05-22-2023 Sodium [Moles/Vol] 138 mmol/L 136-145 [facility] Thyrotropin [Units/volume] i n Serum or PlasmaOrdered By: Sammie Gonzalez on 05-22-2023 TSH Qn 3.27 m[IU]/L 0.45-5.33 [facility] Thyroxine (T4) free [Mass/vo lume] in Serum or PlasmaOrdered By: Sammie Gonzalez on 05-22-2023 Free T4 [Mass/Vol] 0.91 ng/dL 0.61-1.12 [facility] Triglyceride [Mass/volume] i n Serum or PlasmaOrdered By: Sammie Gonzalez on 05-22-2023 Triglyceride [Mass/Vol] 223 mg/dL 0-149 [facility] Comment on above: TRIG ATP III CLASSIF ICATIONTRIG less than 150 mg/dL NormalTRIG 150-199 mg/dL Borderline highTRIG 200-500 mg/dL High TRIG greater than 500 mg/dL Very highStandard traceable to the Center for Disease Conrtrol and Prevention (CDC) test method. Urea nitrogen [Mass/volume] in Serum or PlasmaOrdered By: Sammie Gonzalez on 05-22-2023 Urea nitrogen [Mass/Vol] 10 mg/dL 7-25 [facility] WBC Auto (Bld) [#/Vol]Ordere d By: Sammie Gonzalez on 05-22-2023 WBC (Bld) [#/Vol] 9.6 10*3/uL 3.8-11.6 [facility] Basophils Auto (Bld) [#/Vol] Ordered By: Sammie Gonzalez on 04-15-2023 Basophils (Bld) [#/Vol] 0.1 10*3/uL 0.0-0.2 [facility] Basophils/100 WBC Auto (Bld) Ordered By: Sammie Gonzalez on 04-15-2023 Basophils/100 WBC (Bld) 0.8 % . [facility] Eosinophils Auto (Bld) [#/Vo l]Ordered By: Sammie Gonzalez on 04-15-2023 Eosinophils (Bld) [#/Vol] 0.1 10*3/uL 0.0-0.45 [facility] Eosinophils/100 WBC Auto (Bl d)Ordered By: Sammie Gonzalez on 04-15-2023 Eosinophils/100 WBC (Bld) 1.3 % . [facility] Erythrocyte distribution wid th Auto (RBC) [Ratio]Ordered By: Sammie Gonzalez on 04-15-2023 Erythrocyte distribution width (RBC) [Ratio] 15.8 % 11.9-15.3 [facility] Ferritin [Mass/volume] in Se rum or PlasmaOrdered By: Sammie Gonzalez on 04-15-2023 Ferritin [Mass/Vol] 5.1 ng/mL 11.0-306.8 [facility] Hematocrit Auto (Bld) [Volum e fraction]Ordered By: Sammie Gonzalez on 04-15-2023 Hematocrit (Bld) [Volume fraction] 35.0 % 34.0-46.4 [facility] Hemoglobin [Mass/volume] in BloodOrdered By: Sammie Gonzalez on 04-15-2023 Hemoglobin (Bld) [Mass/Vol] 11.2 g/dL 11.8-15.4 [facility] Iron [Mass/volume] in Serum or PlasmaOrdered By: Sammie Gonzalez on 04-15-2023 Iron [Mass/Vol] 18 ug/dL 50-212 [facility] Leukocytes [#/volume] correc jana for nucleated erythrocytes in Blood by Automated counOrdered By: Sammie Gonzalez on 04-15-2023 WBC corrected for nucl RBC Auto (Bld) [#/Vol] 9.6 10*3/uL 3.8-11.6 [facility] Lymphocytes Auto (Bld) [#/Vo l]Ordered By: Sammie Gonzalez on 04-15-2023 Lymphocytes (Bld) [#/Vol] 2.2 10*3/uL 1.00-4.8 [facility] Lymphocytes/100 WBC Auto (Bl d)Ordered By: Sammie Gonzalez on 04-15-2023 Lymphocytes/100 WBC (Bld) 23.3 % . [facility] MCH Auto (RBC) [Entitic mass ]Ordered By: Sammie Gonzalez on 04-15-2023 MCH (RBC) [Entitic mass] 26.0 pg 24.7-34.3 [facility] MCHC Auto (RBC) [Mass/Vol]Or dered By: Sammie Gonzalez on 04-15-2023 MCHC (RBC) [Mass/Vol] 32.0 g/dL 32.0-35.0 [facility] MCV Auto (RBC) [Entitic vol] Ordered By: Sammie Gonzalez on 04-15-2023 MCV (RBC) [Entitic vol] 81.2 fL 80-100 [facility] Monocytes Auto (Bld) [#/Vol] Ordered By: Sammie Gonzalez on 04-15-2023 Monocytes (Bld) [#/Vol] 0.7 10*3/uL 0.0-0.8 [facility] Monocytes/100 WBC Auto (Bld) Ordered By: Sammie Gonzalez on 04-15-2023 Monocytes/100 WBC (Bld) 7.7 % . [facility] Neutrophils Auto (Bld) [#/Vo l]Ordered By: Sammie Gonzalez on 04-15-2023 Neutrophils (Bld) [#/Vol] 6.4 10*3/uL 1.8-7.7 [facility] Neutrophils/100 WBC Auto (Bl d)Ordered By: Sammie Gonzalez on 04-15-2023 Neutrophils/100 WBC (Bld) 66.9 % . [facility] Nucleated erythrocytes [Pres ence] in Blood by Automated countOrdered By: Sammie Gonzalez on 04-15-2023 Nucleated RBC Auto Ql (Bld) 0.4 /100{WBC} 0-0.5 [facility] Platelet mean volume Auto (B ld) [Entitic vol]Ordered By: Sammie Gonzalez on 04-15-2023 Platelet mean volume (Bld) [Entitic vol] 9.1 fL 6.3-10.7 [facility] Platelets Auto (Bld) [#/Vol] Ordered By: Sammie Gonzalez on 04-15-2023 Platelets (Bld) [#/Vol] 427 10*3/uL 150-450 [facility] RBC Auto (Bld) [#/Vol]Ordere d By: Sammie Gonzalez on 04-15-2023 RBC (Bld) [#/Vol] 4.31 10*6/uL 3.60-5.00 [facility] WBC Auto (Bld) [#/Vol]Ordere d By: Sammie Gonzalez on 04-15-2023 WBC (Bld) [#/Vol] 9.6 10*3/uL 3.8-11.6 [facility] BNPon 10-11-2022 Natriuretic peptide B (Bld) [Mass/Vol] 173.0 pg/mL Normal <=450.0 [facility] Comment on above: Performed By: #### L ACT #### [facility] [address] [place] [address] Dr. Ko Durbin CBC W MANUAL DIFFon 10-11-19 23 ATYPICAL LYMPH # 0.18 103/ul Normal [facility] Comment on above: Performed By: #### C MARSHA #### [facility] [address] [place] [address] Dr. Ko Durbin ATYPICAL LYMPH % 2 % Normal [facility] Comment on above: Performed By: #### C MARSHA #### [facility] [address] [place] [address] Dr. Ko Durbin BAND # 0.0 103/ul Normal 0.0-0.3 [facility] Comment on above: Performed By: #### C BCMAN #### [facility] [address] [place] [address] Dr. Ko Durbin BAND % 0 % Normal 0-5 [facility] Comment on above: Performed By: #### C BCMAN #### [facility] [address] [place] [address] Dr. Ko Durbin BASOM # 0.00 103/ul Normal 0.00-0.10 [facility] Comment on above: Performed By: #### C BCCHRISTIANO #### [facility] [address] [place] [address] Dr. Ko Durbin BASOM % 0.0 % Critically low 0.2-2.[address] [facility] Comment on above: Performed By: #### C BCMAN #### [facility] [address] [place] [address] Dr. Ko Durbin BLAST # Normal [facility] Comment on above: Performed By: #### C MARSHA #### [facility] [address] [address] [address] Ko Durbin BLAST % Normal [facility] Comment on above: Performed By: #### C MARSHA #### [facility] [address] [address] [address] Ko Durbin CORRECTED WBC Normal 4.0-11.0 [facility] Comment on above: Performed By: #### C MARSHA #### [facility] [address] [place] [address] Dr. Ko Durbin EOS # 0.00 103/ul Normal 0.00-0.70 [facility] Comment on above: Performed By: #### C MARSHA #### [facility] [address] [place] [address] Dr. Ko Durbin EOS% 0.0 % Critically low 0.9-7.0 [facility] Comment on above: Performed By: #### C MARSHA #### [facility] [address] [place] [address] Dr. Ko Durbin HCT 32.8 % Critically low 36.0-48.0 [facility] Comment on above: Performed By: #### C MARSHA #### [facility] [address] [place] [address] Dr. Ko Durbin HGB 11.1 g/dl Critically low 12.0-16.[address] [facility] Comment on above: Performed By: #### C MARSHA #### [facility] [address] [place] [address] Dr. Ko Durbin LYMPHM # 0.18 103/ul Critically low 1.20-3.80 [facility] Comment on above: Performed By: #### C MARSHA #### [facility] [address] [place] [address] Dr. Ko Durbin LYMPHM% 2.0 % Critically low 20.5-60.0 [facility] Comment on above: Performed By: #### C MARSHA #### [facility] [address] [place] [address] Dr. Ko Durbin MCH 27.7 pg Normal 26.7-34.0 [facility] Comment on above: Performed By: #### C MARSHA #### [facility] [address] [place] [address] Dr. Ko Durbin MCHC 33.8 g/dl Normal 29.9-35.2 [facility] Comment on above: Performed By: #### C MARSHA #### [facility] [address] [place] [address] Dr. Ko Durbin MCV 81.8 fL Normal 81.0-99.0 [facility] Comment on above: Performed By: #### C BCCHRISTIANO #### [facility] [address] [place] [address] Dr. Ko Durbin METAMYELOCYTE # Normal [facility] Comment on above: Performed By: #### C MARSHA #### [facility] [address] [place] [address] Dr. Ko Durbin METAMYELOCYTE % Normal [facility] Comment on above: Performed By: #### C MARSHA #### [facility] [address] [place] [address] Dr. Ko Duribn MONOM# 0.09 103/ul Critically low 0.30-0.80 [facility] Comment on above: Performed By: #### C MARSHA #### [facility] [address] [place] [address] Dr. Ko Durbin MONOM% 1.0 % Critically low 1.7-12.0 [facility] Comment on above: Performed By: #### C MARSHA #### [facility] [address] [place] [address] Dr. Ko Durbin MPV 9.8 fL Normal 9.5-13.5 [facility] Comment on above: Performed By: #### C MARSHA #### [facility] [address] [place] [address] Dr. Ko Durbin MYELOCYTE # Normal [facility] Comment on above: Performed By: #### C MARSHA #### [facility] [address] [place] [address] Dr. Ko Durbin MYELOCYTE % Normal [facility] Comment on above: Performed By: #### C MARSHA #### [facility] [address] [place] [address] Dr. Ko Durbin NRBC Normal [facility] Comment on above: Performed By: #### C MARSHA #### [facility] [address] [address] [address] Ko Durbin PLT 375 103/ul Normal 150-450 [facility] Comment on above: Performed By: #### C MARSHA #### [facility] [address] [address] [address] Ko Durbin RBC 4.01 106/ul Critically low 4.20-5.40 [facility] Comment on above: Performed By: #### C MARSHA #### [facility] [address] [place] [address] Dr. Ko Durbin RDW 13.5 % Normal 11.0-15.0 [facility] Comment on above: Performed By: #### C MARSHA #### [facility] [address] [place] [address] Dr. Ko Durbin SEG # 8.55 103/ul Critically high 1.40-6.50 [facility] Comment on above: Performed By: #### C MARSHA #### [facility] [address] [place] [address] Dr. Ko Durbin SEG % 95.0 % Critically high 43.0-75.0 [facility] Comment on above: Performed By: #### C MARSHA #### [facility] [address] [place] [address] Dr. Ko Durbin WBC 9.0 103/ul Normal 4.0-11.0 [facility] Comment on above: Performed By: #### C MARSHA #### [facility] [address] [place] [address] Dr. Ko Durbin POINT OF CARE GLUCOSEon 09-15 Glucose [Mass/Vol] 98 mg/dL Normal 74-106 [facility] Comment on above: Performed By: #### L ACT #### [facility] [address] [address] [address] Ko Durbin Glucose [Mass/Vol] 158 mg/dL Critically high 74-106 [facility] Comment on above: Performed By: #### P OCGLUC #### [facility] [address] [address] [address] Ko Durbin PROF 14(COMP METB)on 023 Albumin [Mass/Vol] 3.7 g/dL Normal 3.4-5.0 [facility] Comment on above: Performed By: #### L ACT #### [facility] [address] [address] [address] Ko Durbin Albumin/Globulin [Mass ratio] 1.2 {ratio} Normal [facility] Comment on above: Performed By: #### L ACT #### [facility] [address] [place] [address] Dr. Ko Durbin ALP [Catalytic activity/Vol] 42 U/L Critically low 46-116 [facility] Comment on above: Performed By: #### L ACT #### [facility] [address] [place] [address] Dr. Ko Durbin ALT [Catalytic activity/Vol] 30 U/L Normal 14-59 [facility] Comment on above: Performed By: #### L ACT #### [facility] [address] [place] [address] Dr. Ko Durbin Anion gap [Moles/Vol] 17.1 mmol/L Normal [facility] Comment on above: Performed By: #### L ACT #### [facility] [address] [address] [address] Ko Durbin AST [Catalytic activity/Vol] 15 U/L Normal 15-37 [facility] Comment on above: Performed By: #### L ACT #### [facility] [address] [place] [address] Dr. Ko Durbin Bilirubin [Mass/Vol] 0.2 mg/dL Normal 0.2-1.0 [facility] Comment on above: Performed By: #### L ACT #### [facility] [address] [address] [address] Ko Durbin Calcium [Mass/Vol] 9.6 mg/dL Normal 8.5-10.1 [facility] Comment on above: Performed By: #### L ACT #### [facility] [address] [address] [address] Ko Durbin Chloride [Moles/Vol] 100 mmol/L Normal 98-107 [facility] Comment on above: Performed By: #### L ACT #### [facility] [address] [address] [address] Ko Durbin CO2 [Moles/Vol] 22.3 mmol/L Normal 21.0-32.0 [facility] Comment on above: Performed By: #### L ACT #### [facility] [address] [address] [address] Ko Durbin Creatinine [Mass/Vol] 1.10 mg/dL Critically high 0.55-1.02 [facility] Comment on above: Performed By: #### L ACT #### [facility] [address] [address] [address] Ko Durbin EGFR-AF SPANISH >60 Normal >=60 [facility] Comment on above: Performed By: #### L ACT #### [facility] [address] [address] [address] Ko Durbin EGFR-NON AF SPANISH 54 mL/min/1.73m2 Critically low >=60 [facility] Comment on above: Performed By: #### L ACT #### [facility] [address] [address] [address] Ko Durbin Globulin (S) [Mass/Vol] 3.1 g/dL Normal [facility] Comment on above: Performed By: #### L ACT #### [facility] [address] [address] [address] Ko Durbin Glucose [Mass/Vol] 180 mg/dL Critically high 74-106 [facility] Comment on above: Performed By: #### L ACT #### [facility] [address] [address] [address] Ko Durbin Potassium [Moles/Vol] 3.4 mmol/L Critically low 3.5-5.1 [facility] Comment on above: Performed By: #### L ACT #### [facility] [address] [place] [address] Dr. Ko Durbin Protein [Mass/Vol] 6.8 g/dL Normal 6.4-8.2 [facility] Comment on above: Performed By: #### L ACT #### [facility] [address] [address] [address] Ko Durbin Sodium [Moles/Vol] 136 mmol/L Normal 136-145 [facility] Comment on above: Performed By: #### L ACT #### [facility] [address] [place] [address] Dr. Ko Durbin Urea nitrogen [Mass/Vol] 19.0 mg/dL Critically high 7.0-18.0 [facility] Comment on above: Performed By: #### L ACT #### [facility] [address] [place] [address] Dr. Ko Durbin Urea nitrogen/Creatinine [Mass ratio] 17.3 mg/mg Normal [facility] Comment on above: Performed By: #### L ACT #### [facility] [address] [place] [address] Dr. Ko Durbin BNPon 10-10-2022 Natriuretic peptide B (Bld) [Mass/Vol] 291.0 pg/mL Normal <=450.0 [facility] Comment on above: Performed By: #### C MP, CMADM, BNP #### [facility] [address] [place] [address] Dr. Ko Durbin CARDIAC PERRY ADMITon 023 CK [Catalytic activity/Vol] 286 U/L Critically high 26-192 [facility] Comment on above: Performed By: #### C MP, CMADM, BNP #### [facility] [address] [place] [address] Dr. Ko Durbin CK.MB [Mass/Vol] 4.51 ng/mL Critically high <=3.60 [facility] Comment on above: Performed By: #### C MP, CMADM, BNP #### [facility] [address] [place] [address] Dr. Ko Durbin HSTROP 5.0 pg/mL Normal 4.0-51.3 [facility] Comment on above: Result Comment: CUT- OFF POINTS HAVE BEEN ESTABLISHED BASED ON THE FOURTH UNIVERSAL DEFINITIONS OF MYOCARDIAL INFARCTION. THE UPPER REFERENCE LIMIT (URL) OF TROPONIN, DEFINED THE 99TH PERCENTILE OF cTnI DISTRIBUTION IN A REFERENCE POPULATION, HAS BEEN CONFIRMED THE DECISION THRESHOLD FOR IN DIAGNOSIS. Performed By: #### C MP, CMADM, BNP #### [facility] [address] [place] [address] Dr. Ko Durbin JAROD 184 ng/mL Critically high 9-82 [facility] Comment on above: Performed By: #### C MP, CMADM, BNP #### [facility] [address] [place] [address] Dr. Ko Durbin CBC AUTO DIFFon 10-10-2022 BASO # 0.0 103/ul Normal 0.0-0.1 [facility] Comment on above: Performed By: #### C BC #### [facility] [address] [place] [address] Dr. Ko Durbin Basophils/100 WBC (Bld) 0.2 % Normal 0.2-2.0 [facility] Comment on above: Performed By: #### C BC #### [facility] [address] [place] [address] Dr. Ko Durbin EO # 0.0 103/ul Normal 0.0-0.7 [facility] Comment on above: Performed By: #### C BC #### [facility] [address] [place] [address] Dr. Ko Durbin Eosinophils/100 WBC (Bld) 0.0 % Critically low 0.9-7.0 [facility] Comment on above: Performed By: #### C BC #### [facility] [address] [place] [address] Dr. Ko Durbin Erythrocyte distribution width (RBC) [Ratio] 13.7 % Normal 11.0-15.0 [facility] Comment on above: Performed By: #### C BC #### [facility] [address] [address] [address] Ko Durbin Hematocrit (Bld) [Volume fraction] 31.8 % Critically low 36.0-48.0 [facility] Comment on above: Performed By: #### C BC #### [facility] [address] [place] [address] Dr. Ko Durbin Hemoglobin (Bld) [Mass/Vol] 11.1 g/dL Critically low 12.0-16.0 [facility] Comment on above: Performed By: #### C BC #### [facility] [address] [place] [address] Dr. Ko Durbin IG # 0.11 10e3/ul Critically high 0.00-0.03 [facility] Comment on above: Performed By: #### C BC #### [facility] [address] [place] [address] Dr. Ko Durbin IG % 1.0 % Critically high 0.0-0.5 [facility] Comment on above: Performed By: #### C BC #### [facility] [address] [place] [address] Dr. Ko Durbin LYMPH # 1.8 103/ul Normal 1.2-3.8 [facility] Comment on above: Performed By: #### C BC #### [facility] [address] [place] [address] Dr. Ko Durbin Lymphocytes/100 WBC (Bld) 16.2 % Critically low 20.5-60.0 [facility] Comment on above: Performed By: #### C BC #### [facility] [address] [place] [address] Dr. Ko Durbin MANUAL DIFF REQ NO Normal [facility] Comment on above: Performed By: #### C BC #### [facility] [address] [place] [address] Dr. Ko Durbin MCH (RBC) [Entitic mass] 28.2 pg Normal 26.7-34.0 [facility] Comment on above: Performed By: #### C BC #### [facility] [address] [address] [address] Ko Durbin MCHC (RBC) [Mass/Vol] 34.9 g/dL Normal 29.9-35.2 [facility] Comment on above: Performed By: #### C BC #### [facility] [address] [address] [address] Ko Durbin MCV (RBC) [Entitic vol] 80.7 fL Critically low 81.0-99. 0 [facility] Comment on above: Performed By: #### C BC #### [facility] [address] [place] [address] Dr. Ko Durbin MONO # 0.7 103/ul Normal 0.3-0.8 [facility] Comment on above: Performed By: #### C BC #### [facility] [address] [place] [address] Dr. Ko Durbin Monocytes/100 WBC (Bld) 6.3 % Normal 1.7-12.0 [facility] Comment on above: Performed By: #### C BC #### [facility] [address] [place] [address] Dr. Ko Durbin NEUT # 8.4 103/ul Critically high 1.4-6.5 [facility] Comment on above: Performed By: #### C BC #### [facility] [address] [place] [address] Dr. Ko Durbin Neutrophils/100 WBC (Bld) 76.3 % Critically high 43.0-75.0 [facility] Comment on above: Performed By: #### C BC #### [facility] [address] [place] [address] Dr. Ko Durbin Platelet mean volume (Bld) [Entitic vol] 9.5 fL Normal 9.5-13.5 [facility] [facility] Comment on above: Performed By: #### C BC #### [facility] [address] [place] [address] Dr. Ko Durbin PLT 384 103/ul Normal 150-450 [facility] Comment on above: Performed By: #### C BC #### [facility] [address] [place], [place] [address] Dr. Ko Durbin RBC 3.94 106/ul Critically low 4.20-5.40 [facility] Comment on above: Performed By: #### C BC #### [facility] [address] [place], [place] [address] Dr. Ko Durbin WBC 11.0 103/ul Normal 4.0-11.0 [facility] Comment on above: Performed By: #### C BC #### [facility] [id number] Ko Durbin CULTURE URINEon 10-10-2022 CULTURE URINE Culture Observations : NO GROWTH. Normal [facility] Comment on above: Performed By: #### U RCX #### [facility] [address] [address] [address] Ko Durbin Covid-19 PCR (CVDTBH)on 09-15 SARS-CoV-2 (COVID-19) RNA RADHA+probe Ql (Unsp spec) Not detected Normal NOT DETECTED [facility] Comment on above: Result Comment: When diagnostic [...] for this test is supported by the Screen Stretcher of Health and Human Service's declaration that [...] used). Performed By: #### C VDTBH #### [facility] [id number] Ko Durbin LACTATE/LACTIC ACIDon 2022 Lactate [Moles/Vol] 1.7 mmol/L Normal 0.4-1.9 [facility] Comment on above: Performed By: #### L ACT #### [facility] [address] [address] [address] Ko Durbin POINT OF CARE GLUCOSEon 09-15 Glucose [Mass/Vol] 139 mg/dL Critically high 74-106 [facility] Comment on above: Performed By: #### P OCGLUC #### [facility] [address] [address] [address] Ko Durbin Glucose [Mass/Vol] 99 mg/dL Normal 74-106 [facility] Comment on above: Performed By: #### L ACT #### [facility] [address] [place] [address] Dr. Ko Durbin PROF 14(COMP METB)on 023 Albumin [Mass/Vol] 3.9 g/dL Normal 3.4-5.0 [facility] Comment on above: Performed By: #### C MP, CMADM, BNP #### [facility] [address] [place] [address] Dr. Ko Durbin Albumin/Globulin [Mass ratio] 1.3 {ratio} Normal [facility] Comment on above: Performed By: #### C MP, CMADM, BNP #### [facility] [address] [place] [address] Dr. Ko Durbin ALP [Catalytic activity/Vol] 43 U/L Critically low 46-116 [facility] Comment on above: Performed By: #### C MP, CMADM, BNP #### [facility] [address] [place] [address] Dr. Ko Durbin ALT [Catalytic activity/Vol] 34 U/L Normal 14-59 [facility] Comment on above: Performed By: #### C MP, CMADM, BNP #### [facility] [address] [place] [address] Dr. Ko Durbin Anion gap [Moles/Vol] 16.2 mmol/L Normal [facility] Comment on above: Performed By: #### C MP, CMADM, BNP #### [facility] [address] [address] [address] Ko Durbin AST [Catalytic activity/Vol] 18 U/L Normal 15-37 [facility] Comment on above: Performed By: #### C MP, CMADM, BNP #### [facility] [address] [address] [address] Ko Durbin Bilirubin [Mass/Vol] 0.2 mg/dL Normal 0.2-1.0 [facility] Comment on above: Performed By: #### C MP, CMADM, BNP #### [facility] [address] [address] [address] Ko Durbin Calcium [Mass/Vol] 9.4 mg/dL Normal 8.5-10.1 [facility] Comment on above: Performed By: #### C MP, CMADM, BNP #### [facility] [address] [address] [address] Ko Durbin Chloride [Moles/Vol] 99 mmol/L Normal 98-107 [facility] Comment on above: Performed By: #### C MP, CMADM, BNP #### [facility] [address] [address] [address] Ko Durbin CO2 [Moles/Vol] 25.7 mmol/L Normal 21.0-32.0 [facility] Comment on above: Performed By: #### C MP, CMADM, BNP #### [facility] [address] [address] [address] Ko Durbin Creatinine [Mass/Vol] 1.10 mg/dL Critically high 0.55-1.02 [facility] Comment on above: Performed By: #### C MP, CMADM, BNP #### [facility] [address] [address] [address] Ko Durbin EGFR-AF SPANISH >60 Normal >=60 [facility] Comment on above: Performed By: #### C MP, CMADM, BNP #### [facility] [address] [address] [address] Ko Durbin EGFR-NON AF SPANISH 54 mL/min/1.73m2 Critically low >=60 [facility] Comment on above: Performed By: #### C MP, CMADM, BNP #### [facility] [address] [place] [address] Dr. Ko Durbin Globulin (S) [Mass/Vol] 2.9 g/dL Normal [facility] Comment on above: Performed By: #### C MP, CMADM, BNP #### [facility] [address] [place] [address] Dr. Ko Durbin Glucose [Mass/Vol] 97 mg/dL Normal 74-106 [facility] Comment on above: Performed By: #### C MP, CMADM, BNP #### [facility] [address] [place] [address] Dr. Ko Durbin Potassium [Moles/Vol] 3.9 mmol/L Normal 3.5-5.1 [facility] Comment on above: Performed By: #### C MP, CMADM, BNP #### [facility] [address] [place] [address] Dr. Ko Durbin Protein [Mass/Vol] 6.8 g/dL Normal 6.4-8.2 [facility] Comment on above: Performed By: #### C MP, CMADM, BNP #### [facility] [address] [place] [address] Dr. Ko Durbin Sodium [Moles/Vol] 137 mmol/L Normal 136-145 [facility] Comment on above: Performed By: #### C MP, CMADM, BNP #### [facility] [address] [place] [address] Dr. Ko Durbin Urea nitrogen [Mass/Vol] 16.0 mg/dL Normal 7.0-18.0 [facility] Comment on above: Performed By: #### C MP, CMADM, BNP #### [facility] [address] [place] [address] Dr. Ko Durbin Urea nitrogen/Creatinine [Mass ratio] 14.5 mg/mg Normal [facility] Comment on above: Performed By: #### C MP, CMADM, BNP #### [facility] [address] [place] [address] Dr. Ko Durbin UA RANDOM W/MICROSCOPICon BACTERIA NONE SEEN Normal NONE SEEN [facility] Comment on above: Performed By: #### L ACT #### [facility] [address] [place] [address] Dr. Ko Durbin Bilirubin Ql (U) Negative Normal NEGATIVE [facility] Comment on above: Performed By: #### L ACT #### [facility] [address] [place] [address] Dr. Ko Durbin CAST NONE SEEN Normal NONE SEEN [facility] Comment on above: Performed By: #### L ACT #### [facility] [address] [place] [address] Dr. Ko Durbin Clarity (U) CLEAR Normal CLEAR [facility] Comment on above: Performed By: #### L ACT #### [facility] [address] [place] [address] Dr. Ko Durbin Color (U) LT. YELLOW Normal YELLOW [facility] Comment on above: Performed By: #### L ACT #### [facility] [address] [place] [address] Dr. Ko Durbin Crystals LM Nom (Urine sed) NONE SEEN Normal NONE SEEN [facility] Comment on above: Performed By: #### L ACT #### [facility] [address] [place] [address] Dr. Ko Durbin Epithelial cells LM Ql (Urine sed) NONE SEEN Normal NONE SEEN /RARE [facility] Comment on above: Performed By: #### L ACT #### [facility] [address] [place] [address] Dr. Ko Durbin Glucose Ql (U) 500 mg/dl Abnormal NEGATIVE [facility] Comment on above: Performed By: #### L ACT #### [facility] [address] [place] [address] Dr. Ko Durbin Hemoglobin Ql (U) TRACE-INTACT Abnormal NEGATIVE [facility] Comment on above: Performed By: #### L ACT #### [facility] [address] [place] [address] Dr. Ko Durbin Ketones Ql (U) Negative Normal NEGATIVE [facility] Comment on above: Performed By: #### L ACT #### [facility] [address] [place] [address] Dr. Ko Durbin LEUKOCYTES Negative Normal NEGATIVE [facility] Comment on above: Performed By: #### L ACT #### [facility] [address] [place] [address] Dr. Ko Durbin MUCOUS NONE SEEN Normal NONE SEEN [facility] Comment on above: Performed By: #### L ACT #### [facility] [address] [place] [address] Dr. Ko Durbin Nitrite Ql (U) Negative Normal NEGATIVE [facility] Comment on above: Performed By: #### L ACT #### [facility] [address] [place] [address] Dr. Ko Durbin pH (U) 5.5 [pH] Normal 5-9 [facility] Comment on above: Performed By: #### L ACT #### [facility] [address] [place] [address] Dr. Ko Durbin RBC 0-2 Normal 0-2 [facility] Comment on above: Performed By: #### L ACT #### [facility] [address] [place] [address] Dr. Ko Durbin SPEC GRAVITY <=1.005 Abnormal 1.005-<=1.0 25 [facility] Comment on above: Performed By: #### L ACT #### [facility] [address] [place] [address] Dr. Ko Durbin UA PROTEIN Negative Normal NEGATIVE/ TRACE [facility] Comment on above: Performed By: #### L ACT #### [facility] [address] [place] [address] Dr. Ko Durbin Urobilinogen Qn (U) 0.2 {Rich'U}/dL Normal 0.2 - 1. 0 [facility] Comment on above: Performed By: #### L ACT #### [facility] [address] [place] [address] Dr. Ko Durbin WBC NONE SEEN Normal NONE SEEN [facility] Comment on above: Performed By: #### L ACT #### [facility] [id number] [address] Ko Durbin XR CHEST 2 Von [...] LIAT MARISCAL Date: 2022-10-10 17:23 Normal [facility] XR wrist RT min 3V*on 2022 XR wrist RT min 3V* [facility] [employer] Other XR wrist RT min 3V* [facility] [employer] Other XR wrist RT min 3V* [address] [place] [address] [employer] Other XR wrist RT min 3V* [place] [address] [employer] Other XR wrist RT min 3V* XRay Report [facility] [employer] Other XR wrist RT min 3V* Signed [employer] Other XR wrist RT min 3V* Patient: Kourtney Novak MR#: [id number] [employer] Other XR wrist RT min 3V* [id number] [employer] Other XR wrist RT min 3V* : 1975 Acct:[id number] [employer] Other XR wrist RT min 3V* Age/Sex: 46 / F ADM Date: 09/24/22 [employer] Other XR wrist RT min 3V* Loc: [facility]XD Room: Type : [facility] [employer] Other XR wrist RT min 3V* Attending Dr: Naz Gomes MD [employer] Other XR wrist RT min 3V* Copies to: Elyssa Gomes MD [employer] Other XR wrist RT min 3V* Ordering Provider: Elyssa Gomes MD [employer] Other XR wrist RT min 3V* Date of Service: 09/24/22 [employer] Other XR wrist RT min 3V* XR/XR wrist RT min 3V*: Osteochondrosis of lunate of right wrist [employer] Other XR wrist RT min 3V* RIGHT WRIST - 4 views [employer] Other XR wrist RT min 3V* CLINICAL HISTORY: Follow-up right wrist denervation and radial core decompression [employer] Other XR wrist RT min 3V* COMPARISON: None [employer] Other XR wrist RT min 3V* FINDINGS: [employer] Other XR wrist RT min 3V* No focal soft tissue abnormality. 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 Triquetral fracture is unchanged. Mild degenerative changes without bony erosion. [employer] Other XR wrist RT min 3V* XR/XR wrist RT min 3V* [employer] Other XR wrist RT min 3V* IMPRESSION: [employer] Other XR wrist RT min 3V* NO SIGNIFICANT DURBIN E IN WRIST FINDINGS. [employer] Other XR wrist RT min 3V* Impression dictated by: Lukasz Santana Jr.OEstefany09/24/2022 4:36 PM [employer] Other XR wrist RT min 3V* Dictation Location: RADIO-PC-08 [employer] Other XR wrist RT min 3V* Transcribed By: PWS 09/24/22 1636 [employer] Other XR wrist RT min 3V* Dictated By: Rainer Martinez Jr, 09/24/22 1634 [employer] Other XR wrist RT min 3V* Signed By: [employer] Other XR wrist RT min 3V* 09/24/22 1636 No rt [employer] Other Urine culture routineOrdered By: Sammie Gonzalez on 07-31-2022 Bacteria identified Cx Nom (U) 2 Days [facility] Automated erythrocytes count in urine sediment (number/area)Ordered By: Sammie Gnozalez on 07-29-2022 RBC Auto (Urine sed) [#/Area] 3-4 [HPF] 0-4 [facility] Automated leukocytes count i n urine sediment (number/area)Ordered By: Sammie Gonzalez on 07-29-2022 WBC Auto (Urine sed) [#/Area] None seen [HPF] 0-4 [facility] Bilirubin Test strip Ql (U)O rdered By: Sammie Gonzalez on 07-29-2022 Bilirubin Ql (U) Negative Negative [facility] Color Auto (U)Ordered By: Do erik Gonzalez on 07-29-2022 Color (U) Yellow Yellow [facility] Ketones Auto test strip (U) [Mass/Vol]Ordered By: Sammie Gonzalez on 07-29-2022 Ketones (U) [Mass/Vol] Negative Negative [facility] - UrinalysisOrder ed By: Sammie Gonzalez on 07-29-2022 Hyaline casts LM Ql (Urine sed) None seen [LPF] 0-8 [facility] Nitrite Test strip Ql (U)Ord ered By: Sammie Gonzalez on 07-29-2022 Nitrite Ql (U) Negative Negative [facility] Protein Auto test strip (U) [Mass/Vol]Ordered By: Sammie Gonzalez on 07-29-2022 Protein (U) [Mass/Vol] Negative Negative [facility] Specific gravity Auto test s trip (U) [Rel density]Ordered By: Sammie Gonzalez on 07-29-2022 Specific gravity (U) [Rel density] 1.013 1.001-1.030 [facility] Squamous epithelial cells de tection in urine sediment by light microscopyOrdered By: Sammie Gonzalez on 07-29-2022 Epithelial cells.squamous LM Ql (Urine sed) None seen [HPF] 0-2 [facility] Urine bacteria detection by automated methodOrdered By: Sammie Gonzalez on 07-29-2022 Bacteria Auto Ql (U) None seen None Seen [facility] Urine clarity by refractomet ry automatedOrdered By: Sammie Gonzalez on 07-29-2022 Clarity Refractometry automated (U) Clear Clear [facility] Urine culture routineOrdered By: Sammie Gonzalez on 07-29-2022 Bacteria identified Cx Nom (U) 2 Days [facility] Urine glucose measurement by automated test strip (mass/volume)Ordered By: Sammie Gonzalez on 07-29-2022 Glucose Auto test strip (U) [Mass/Vol] >=1000 mg/dL Normal [facility] Urine hemoglobin detection b y automated test stripOrdered By: Sammie Gonzalez on 07-29-2022 Hemoglobin Auto test strip Ql (U) Trace Negative [facility] Urine leukocyte esterase det ection by automated test stripOrdered By: Sammie Gonzalez on 07-29-2022 Leukocyte esterase Auto test strip Ql (U) Negative Negative [facility] Urobilinogen Auto test strip (U) [Mass/Vol]Ordered By: Sammie Gonzalez on 07-29-2022 Urobilinogen (U) [Mass/Vol] Normal mg/dL Normal [facility] pH Auto test strip (U)Ordere d By: Sammie Gonzalez on 07-29-2022 pH (U) 6.0 [pH] 5.0-9.0 [facility] Albumin [Mass/volume] in Ser um or PlasmaOrdered By: Sammie Gonzalez on 05-01-2022 Albumin [Mass/Vol] 4.0 g/dL 3.2-5.5 [facility] Basophils Auto (Bld) [#/Vol] Ordered By: Sammie Gonzalez on 05-01-2022 Basophils (Bld) [#/Vol] 0.0 10*3/uL 0.0-0.2 [facility] Basophils/100 WBC Auto (Bld) Ordered By: Sammie Gonzalez on 05-01-2022 Basophils/100 WBC (Bld) 0.8 % . [facility] Blood hemoglobin measurement (mass/volume)Ordered By: Sammie Gonzalez on 05-01-2022 Hemoglobin (Bld) [Mass/Vol] 12.4 g/dL 11.8-15.4 [facility] Blood leukocytes automated c ount (number/volume)Ordered By: Sammie Gonzalez on 05-01-2022 WBC (Bld) [#/Vol] 6.0 10*3/uL 4.5-11.0 [facility] Cholesterol [Mass/volume] in Serum or PlasmaOrdered By: Sammie Gonzalez on 05-01-2022 Cholesterol [Mass/Vol] 189 mg/dL 140-200 [facility] Comment on above: Chol less than 200 m g/dl low risk Chol 201-239 mg/dl borderline risk Chol 240 mg/dl and greater high risk Chol less than 200 m g/dl low riskChol 201-239 mg/dl borderline riskChol 240 mg/dl and greater high risk Cholesterol in LDL Calc [Mas s/Vol]Ordered By: Sammie Gonzalez on 05-01-2022 Cholesterol in LDL [Mass/Vol] 92 mg/dL 0-100 [facility] Comment on above: LDL ATP III CLASSIFI [...] 05-01-2022 Cholesterol in VLDL [Mass/Vol] 19 mg/dL [facility] Creatinine and Glomerular fi ltration rate.predicted panel (S/P/Bld)Ordered By: Sammie Gonzlaez on 05-01-2022 Creatinine [Mass/Vol] 1.06 mg/dL 0.44-1.03 [facility] Eosinophils Auto (Bld) [#/Vo l]Ordered By: Sammie Gonzalez on 05-01-2022 Eosinophils (Bld) [#/Vol] 0.1 10*3/uL 0.0-0.45 [facility] Eosinophils/100 WBC Auto (Bl d)Ordered By: Sammie Gonzalez on 05-01-2022 Eosinophils/100 WBC (Bld) 1.2 % . [facility] Erythrocyte distribution wid th Auto (RBC) [Ratio]Ordered By: Sammie Gonzalez on 05-01-2022 Erythrocyte distribution width (RBC) [Ratio] 13.7 % 11.9-15.3 [facility] Estimated glomerular filtrat ion rate (GFR) non- AmericanOrdered By: Sammie Gonzalez on 05-01-2022 GFR/1.73 sq M.predicted among non-blacks MDRD (S/P/Bld) [Vol rate/Area] 56 mL/Min [facility] Globulin Calc (S) [Mass/Vol] Ordered By: Sammie Gonzalez on 05-01-2022 Globulin (S) [Mass/Vol] 2.3 g/dL [facility] Glucose mean value [Mass/vol ume] in Blood Estimated from glycated hemoglobinOrdered By: Sammie Gonzalez on 05-01-2022 Average glucose Estimated from glycated hemoglobin (Bld) [Mass/Vol] 117 mg/dL [facility] Hematocrit Auto (Bld) [Volum e fraction]Ordered By: Sammie Gonzalez on 05-01-2022 Hematocrit (Bld) [Volume fraction] 38.4 % 34.0-46.4 [facility] Hemoglobin A1c percentageOrd ered By: Sammie Gonzalez on 05-01-2022 HbA1c (Bld) [Mass fraction] 5.7 % 4.3-5.6 [facility] Comment on above: Increased risk for d iabetes: 5.7 - 6.4 diabetes: >6.4 glycemic control for adults with diabetes: <7.0 Increased risk for d iabetes: 5.7 - 6.4diabetes: >6.4glycemic control for adults with diabetes: <7.0 Iron [Mass/volume] in Serum or PlasmaOrdered By: Sammie Gonzalez on 05-01-2022 Iron [Mass/Vol] 48 ug/dL 40-150 [facility] - Chemistry and C hemistry - challengeOrdered By: Sammie Gonzalez on 05-01-2022 Natriuretic peptide B (Bld) [Mass/Vol] 7.0 pg/mL 5-100 [facility] - Hematology and Cell countsOrdered By: Sammie Gonzalez on 05-01-2022 Nucleated RBC/100 WBC (Bld) [Ratio] 0.0 % 0-0.5 [facility] Lymphocytes Auto (Bld) [#/Vo l]Ordered By: Sammie Gonzalez on 05-01-2022 Lymphocytes (Bld) [#/Vol] 1.4 10*3/uL 1.00-4.8 [facility] Lymphocytes/100 WBC Auto (Bl d)Ordered By: Sammie Gonzalez on 05-01-2022 Lymphocytes/100 WBC (Bld) 23.0 % . [facility] MCH Auto (RBC) [Entitic mass ]Ordered By: Sammie Gonzalez on 05-01-2022 MCH (RBC) [Entitic mass] 28.9 pg 24.7-34.3 [facility] MCHC Auto (RBC) [Mass/Vol]Or dered By: Sammie Gonzalez on 05-01-2022 MCHC (RBC) [Mass/Vol] 32.4 g/dL 32.0-35.0 [facility] MCV Auto (RBC) [Entitic vol] Ordered By: Sammie Gonzalez on 05-01-2022 MCV (RBC) [Entitic vol] 89.1 fL 80-100 [facility] Monocytes Auto (Bld) [#/Vol] Ordered By: Sammie Gonzalez on 05-01-2022 Monocytes (Bld) [#/Vol] 0.6 10*3/uL 0.0-0.8 [facility] Monocytes/100 WBC Auto (Bld) Ordered By: Sammie Gonzalez on 08-18-2022 Monocytes/100 WBC (Bld) 9.1 % . [facility] Neutrophils Auto (Bld) [#/Vo l]Ordered By: Sammie Gonzalez on 05-01-2022 Neutrophils (Bld) [#/Vol] 4.0 10*3/uL 1.8-7.7 [facility] Neutrophils/100 WBC Auto (Bl d)Ordered By: Sammie Gonzalez on 05-01-2022 Neutrophils/100 WBC (Bld) 65.9 % . [facility] No Panel InformationOrdered By: Sammie Gonzalez on 05-01-2022 Estimated GFR () > 60 mL/Min [facility] Comment on above: GFR estimated refere nce range: According to KDOQI guidelines, <60 ml/min/1.73m2 is sufficient to diagnose a patient with chronic kidney disease. Pharmacy Creatinine Clearance (Chem N/A [facility] Platelet mean volume Auto (B ld) [Entitic vol]Ordered By: Sammie Gonzalez on 05-01-2022 Platelet mean volume (Bld) [Entitic vol] 8.5 fL 6.3-10.7 [facility] Platelets Auto (Bld) [#/Vol] Ordered By: Sammie Gonzalez on 05-01-2022 Platelets (Bld) [#/Vol] 385 10*3/uL 150-450 [facility] Protein [Mass/volume] in Ser um or PlasmaOrdered By: Sammie Gonzalez on 05-01-2022 Protein [Mass/Vol] 6.3 g/dL 6.1-7.9 [facility] RBC Auto (Bld) [#/Vol]Ordere d By: Sammie Gonzalez on 05-01-2022 RBC (Bld) [#/Vol] 4.31 10*6/uL 3.60-5.00 [facility] Serum or plasma alanine bass otransferase measurement without P-5'-P (enzymatic activiOrdered By: Sammie Gonzalez on 05-01-2022 ALT No additional P-5'-P [Catalytic activity/Vol] 22 U/L 10-60 [facility] Serum or plasma albumin/glob ulin mass ratioOrdered By: Sammie Gonzalez on 05-01-2022 Albumin/Globulin [Mass ratio] 1.7 {ratio} [facility] Serum or plasma alkaline leela sphatase measurement (enzymatic activity/volume)Ordered By: Sammie Gonzalez on 05-01-2022 ALP [Catalytic activity/Vol] 52 U/L 32-92 [facility] Serum or plasma aspartate am inotransferase measurement (enzymatic activity/volume)Ordered By: Sammie Gonzalez on 05-01-2022 AST [Catalytic activity/Vol] 17 U/L 10-42 [facility] Serum or plasma calcium kiara urement (mass/volume)Ordered By: Sammie Gonzalez on 05-01-2022 Calcium [Mass/Vol] 9.5 mg/dL 8.2-10.2 [facility] Serum or plasma chloride aby surement (moles/volume)Ordered By: Sammie Gonzalez on 05-01-2022 Chloride [Moles/Vol] 100 mmol/L 95-114 [facility] Serum or plasma glucose kiara urement (mass/volume)Ordered By: Sammie Gonzalez on 05-01-2022 Glucose [Mass/Vol] 96 mg/dL 70-100 [facility] [facility] Comment on above: ADA recommended refe [...] Cholesterol in HDL [Mass/Vol] 78 mg/dL 35-85 [facility] Comment on above: HDL CHOL ATP-III CLA SSIFICATION Cardiovascular Risk HDL > or equal to 60 mg/dL LOW HDL < 40 mg/dL HIGH HDL CHOL ATP-III CLA SSIFICATION Cardiovascular RiskHDL > or equal to 60 mg/dL LOWHDL < 40 mg/dL HIGH Serum or plasma potassium me asurement (moles/volume)Ordered By: Sammie Gonzalez on 05-01-2022 Potassium [Moles/Vol] 4.2 mmol/L 3.5-5.1 [facility] Serum or plasma sodium measu rement (moles/volume)Ordered By: Sammie Gonzalez on 05-01-2022 Sodium [Moles/Vol] 134 mmol/L 136-146 [facility] Serum or plasma thyroxine (T 4) measurement (mass/volume)Ordered By: Sammie Gonzalez on 05-01-2022 T4 [Mass/Vol] 9.20 ug/dL 5.39-11.82 [facility] Serum or plasma total biliru bin measurement (mass/volume)Ordered By: Sammie Gonzalez on 05-01-2022 Bilirubin [Mass/Vol] 0.4 mg/dL 0.3-1.2 [facility] Serum or plasma total carbon dioxide measurement (moles/volume)Ordered By: Sammie Gonzalez on 05-01-2022 CO2 [Moles/Vol] 24.2 mmol/L 22.0-30.0 [facility] Serum or plasma total choles terol/high density lipoprotein (HDL) cholesterol mass ratOrdered By: Sammie Gonzalez on 05-01-2022 Cholesterol.total/Tali sterol in HDL [Mass ratio] 2.4 {ratio} <5.0 [facility] Serum or plasma urea nitroge n measurement (mass/volume)Ordered By: Sammie Gonzalez on 05-01-2022 Urea nitrogen [Mass/Vol] 14 mg/dL 9-23 [facility] TSH DL <= 0.005 mIU/L QnOrde red By: Sammie Gonzalez on 05-01-2022 TSH Qn 3.07 m[IU]/L 0.45-5.33 [facility] Triglyceride [Mass/volume] i n Serum or PlasmaOrdered By: Sammie Gonzalez on 05-01-2022 Triglyceride [Mass/Vol] 97 mg/dL 35-149 [facility] Comment on above: TRIG ATP III [...] Gonzalez on 05-01-2022 T3RU 25 % 24-39 [facility] Comment on above: Performed at: [employer] [address] [place], [place] [id number] Manager Bench: Maxim Daniel PhD, Phone: [phone] Performed at: [employer] [id number] [place], [place] [id number] Director: Maxim Daniel PhD, Phone: [phone] XR wrist RT 2Von 01-24-2022 XR wrist RT 2V [facility] [employer] Other XR wrist RT 2V [facility] [employer] Other XR wrist RT 2V [address] [place] [address] [employer] Other XR wrist [place] 2[place] [address] No rt [employer] Other XR wrist RT 2V XRay Report [employer] Other XR wrist RT 2V Signed [employer] Other XR wrist RT 2V Patient: Kourtney Novak MR#: [id number] [employer] Other XR wrist RT 2V [id number] [employer] Other XR wrist RT 2V : 1975 Acct:[id number] [employer] Other XR wrist RT 2V Age/Sex: 46 / F ADM Date: 01/24/22 [employer] Other XR wrist RT 2V Loc: [facility] Room: Type : [facility] [employer] Other XR wrist RT 2V Attending Dr: Naz Gomes MD [employer] Other XR wrist RT 2V Ordering Provider: Elyssa Gomes MD [employer] Other XR wrist RT 2V Date of Service: 01/24/22 [employer] Other XR wrist RT 2V XR/XR wrist RT 2V: Osteochondrosis of lunate of right wrist [employer] Other XR wrist RT 2V Copies to: Elyssa Gomes MD [employer] Other XR wrist RT 2V Right wrist 01/24/2022. [employer] Other XR wrist RT 2V CLINICAL DATA: Osteochondrosis of lunate of right wrist. [employer] Other XR wrist RT 2V FINDINGS: 2 views of the right wrist were obtained and are compared with a prior study 12/24/2021. [employer] Other XR wrist RT 2V No acute fracture or dislocation is identified. The lunate again appears sclerotic. This finding [employer] Other XR wrist RT 2V has not significantl y changed. No collapse is seen. No soft tissue swelling is visualized. [employer] Other XR wrist RT 2V XR/XR wrist RT 2V [employer] Other XR wrist RT 2V IMPRESSION: Scleroti c lunate, not significantly changed. [employer] Other XR wrist RT 2V Impression dictated by: Brody Marks Jr., M.D.01/24/2022 3:00 PM [employer] Other XR wrist RT 2V Dictation Location: [place] [address] [employer] Other XR wrist RT 2V Transcribed By: GRACIE 01/24/22 1500 [employer] Other XR wrist RT 2V Dictated By: Brody Marks Jr, MD 01/24/22 1454 [employer] Other XR wrist RT 2V Signed By: [employer] Other XR wrist RT 2V 01/24/22 1500 [facility] [employer] Other XR wrist RT min 3V*on 2021 XR wrist RT min 3V* [facility] [employer] Other XR wrist RT min 3V* [facility] [employer] Other XR wrist RT min 3V* [facility] [employer] Other XR wrist RT min 3V* [place] [address] [employer] Other XR wrist RT min 3V* XRay Report Nort [employer] Other XR wrist RT min 3V* Signed [employer] Other XR wrist RT min 3V* Patient: Kourtney Novak MR#: [id number] [place] [employer] Other XR wrist RT min 3V* [id number] [employer] Other XR wrist RT min 3V* : 1975 Acct:[id number] [employer] Other XR wrist RT min 3V* Age/Sex: 46 / F ADM Date: 11/20/21 [employer] Other XR wrist RT min 3V* Loc: [facility]XD Room: Type : [facility] [employer] Other XR wrist RT min 3V* Attending Dr: Naz Gomes MD [employer] Other XR wrist RT min 3V* Ordering Provider: Elyssa Gomes MD [employer] Other XR wrist RT min 3V* Date of Service: 11/20/21 [employer] Other XR wrist RT min 3V* XR/XR wrist RT min 3V*: Other specified postprocedural [employer] Other XR wrist RT min 3V* states;Osteochondros i s of nayeli [employer] Other XR wrist RT min 3V* Copies to: Elyssa Gomes MD [employer] Other XR wrist RT min 3V* 4 viewsRIGHT wrist plain film [employer] Other XR wrist RT min 3V* COMPARISON:None [employer] Other XR wrist RT min 3V* HISTORY: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 No collapse identified. Calculi metacarpal bones [employer] Other XR wrist RT min 3V* identified. No soft tissue abnormality seen. [employer] Other XR wrist RT min 3V* XR/XR wrist RT min 3V* [employer] Other XR wrist RT min 3V* IMPRESSION:Sclerotic changes of the lunate. Adequate bony alignment. No collapse. [employer] Other XR wrist RT min 3V* Impression dictated by: George Gray M.D.11/20/2021 3:59 PM [employer] Other XR wrist RT min 3V* Dictation Location: [facility]-- [employer] Other XR wrist RT min 3V* Transcribed By: GRACIE 11/20/21 [facility]8 [employer] Other XR wrist RT min 3V* Dictated By: George Gray DO 11/20/21 [facility]7 [employer] Other XR wrist RT min 3V* Signed By: [employer] Other XR wrist RT min 3V* [facility]20[facility]21 [facility] [employer] Other XR wrist RT min 3V*on 2020 XR wrist RT min 3V* [facility] [employer] Other XR wrist RT min 3V* [facility] [employer] Other XR wrist RT min 3V* [address] [place] [address] [employer] Other XR wrist RT min 3V* VIVIEN Giron [address] [place] [employer] Other XR wrist RT min 3V* XRay Report Nort [employer] Other XR wrist RT min 3V* Signed [employer] Other XR wrist RT min 3V* Patient: Kourtney Novak MR#: [id number] [place] [employer] Other XR wrist RT min 3V* [id number] [employer] Other XR wrist RT min 3V* : 1975 Acct:[id number] [employer] Other XR wrist RT min 3V* Age/Sex: 45 / F ADM Date: 08/28/21 [employer] Other XR wrist RT min 3V* Loc: [facility]XD Room: Type : [facility] [employer] Other XR wrist RT min 3V* Attending Dr: Naz Gomes MD [employer] Other XR wrist RT min 3V* Ordering Provider: Elyssa Gomes MD [employer] Other XR wrist RT min 3V* Date of Service: 08/28/21 [employer] Other XR wrist RT min 3V* XR/XR wrist RT min 3V*: M92.211 [employer] Other XR wrist RT min 3V* Copies to: Elyssa Gomes MD [employer] Other XR wrist RT min 3V* RIGHT WRIST - 4 views [employer] Other XR wrist RT min 3V* CLINICAL DATA: Right wrist pain and decreased range of motion. No injury. [employer] Other XR wrist RT min 3V* COMPARISON: 11/15/2020 and MRI 11/15/2020 [employer] Other XR wrist RT min 3V* AP, lateral, oblique and ulnar deviation views were obtained. There is no acute fracture or [employer] Other XR wrist RT min 3V* dislocation. Minor sclerosis is again seen at the lunate where there is also subchondral cystic [employer] Other XR wrist RT min 3V* change medially. Thi s is similar to the prior. There is no developing joint space narrowing or [employer] Other XR wrist RT min 3V* hypertrophy. No prominent soft tissue swelling is noted. [employer] Other XR wrist RT min 3V* XR/XR wrist RT min 3V* [employer] Other XR wrist RT min 3V* IMPRESSION: Nort [employer] Other XR wrist RT min 3V* BONY CHANGES AT THE LUNATE, SIMILAR TO THE COMPARISON. [employer] Other XR wrist RT min 3V* NO ACUTE FINDINGS. [employer] Other XR wrist RT min 3V* Impression dictated by: Trixie Irizarry M.D.08/28/2021 4:42 PM [employer] Other XR wrist RT min 3V* Dictation Location: [place] [address] [employer] Other XR wrist RT min 3V* Transcribed By: GRACIE 08/28/21 1642 [employer] Other XR wrist RT min 3V* Dictated By: Trixie Irizarry MD 08/28/21 1639 [employer] Other XR wrist RT min 3V* Signed By: [employer] Other XR wrist RT min 3V* 08/28/21 1642 No rt [employer] Other XR FOOT 3V AP/LAT/OBL BILon 03-04-2021 [...] No other significant abnormality. --- IMPRESSION: NORMAL Drum Tester: GUANACO Transcribe Date/Time: Mar 04 2021 2:52P Dictated by : TOBI HERRMANN MD This examination was interpreted and the report reviewed and electronically signed by: TOBI HERRMANN MD on Mar 04 2021 2:57PM EST [id number] N [facility] XR HAND 3V PA/LAT/OBL BILon 03-04-2021 XR [...] REMOTE FRACTURES OF THE LEFT WRIST DESCRIBED Drum Tester: GUANACO Transcribe Date/Time: Mar 04 2021 2:57P Dictated by : TOBI HERRMANN MD This examination was interpreted and the report reviewed and electronically signed by: TOBI HERRMANN MD on Mar 04 2021 2:59PM EST [id number] N Normal [facility] Vital Signs Date Time Vital Sign Value Performing Clinician Facility 03-15-2025 12:03-0400 Body mass index (BMI) [Ratio] 40.83 kg/m2 Fellow Appointments Work Phone: [facility] 03-15-2025 12:03-0400 Body weight 111.3 kg Fellow Appointments Work Phone: [facility] Comment on above: with shoes 03-15-2025 12:03-0400 Diastolic blood pressure 79 mm[Hg] Fellow Appointments Work Phone: [facility] Comment on above: notified 03-15-2025 12:03-0400 Heart rate 82 /min Fellow Appointments Work Phone: [facility] 03-15-2025 12:03-0400 Respiratory rate 18 /min Fellow Appointments Work Phone: [facility] 03-15-2025 12:03-0400 SaO2% (BldA) [Mass fraction] 99 % Fellow Appointments Work Phone: [facility] 03-15-2025 12:03-0400 Systolic blood pressure 156 mm[Hg] Fellow Appointments Work Phone: [facility] Comment on above: md notified 03-13-2025 13:17-0400 Body height 165.1 cm Zeinab Rice WHCNP Work Phone: [facility] 03-13-2025 13:17-0400 Body mass index (BMI) [Ratio] 40.77 kg/m2 Zeinab Rice WHCNP Work Phone: [facility] 03-13-2025 13:17-0400 Body weight 111.13 kg Zeinab Rice WHCNP Work Phone: [facility] 03-13-2025 13:17-0400 Diastolic blood pressure 74 mm[Hg] Zeinab Rice WHCNP Work Phone: [facility] 03-13-2025 13:17-0400 Heart rate 76 /min Zeinab Rice WHCNP Work Phone: [facility] 03-13-2025 13:17-0400 Respiratory rate 16 /min Zeinab Rice WHCNP Work Phone: [facility] 03-13-2025 13:17-0400 SaO2% (BldA) [Mass fraction] 97 % Zeinab Rice WHCNP Work Phone: [facility] 03-13-2025 13:17-0400 Systolic blood pressure 126 mm[Hg] Zeinab Rice WHCNP Work Phone: [facility] 03-06-2025 10:11-0400 Body mass index (BMI) [Ratio] 39.95 kg/m2 Mario Alberto Phillips RN [facility] 03-06-2025 10:11-0400 Body temperature 99.19 [degF] Mario Alberto Phillips RN [facility] 03-06-2025 10:11-0400 Body weight 108.9 kg Mario Alberto Phillips RN [facility] 03-06-2025 10:11-0400 Diastolic blood pressure 64 mm[Hg] Mario Alberto Phillips RN [facility] 03-06-2025 10:11-0400 Heart rate 93 /min Mario Alberto Phillips RN [facility] 03-06-2025 10:11-0400 Respiratory rate 18 /min [facility] 03-06-2025 10:11-0400 SaO2% (BldA) [Mass fraction] 100 % Mario Alberto Phillips RN [facility] Comment on above: ra 03-06-2025 10:11-0400 Systolic blood pressure 149 mm[Hg] Mario Alberto Phillips RN [facility] 02-20-2025 15:51-0400 SaO2% (BldA) [Mass fraction] 98 % ERIK LUCY [facility] Comment on above: Order Comment: Specimen Type: ARTERIAL B LOOD SPECIMENOrdering Facility: [facility] Address: [address] [place] [address] Performed By: #### A LLMG ####[facility] [id number] [address] OF [facility] 02-20-2025 13:28-0400 SaO2% (BldA) [Mass fraction] 99 % ERIK PINEDA [facility] Comment on above: Order Comment: Specimen Type: ARTERIAL B LOOD SPECIMENOrdering Facility: [facility] Address: [address] [place] [address] Performed By: #### A LLMG ####[facility] [id number] [place] [id number] [place] 02-14-2025 07:42-0400 Body height 163.8 cm Pacc 2 Work Phone: [facility] 02-14-2025 07:42-0400 Body mass index (BMI) [Ratio] 40.98 kg/m2 Pacc 2 Work Phone: [facility] 02-14-2025 07:42-0400 Body temperature 98.71 [degF] Pacc 2 Work Phone: [facility] 02-14-2025 07:42-0400 Body weight 110 kg Pacc 2 Work Phone: [facility] 02-14-2025 07:42-0400 Diastolic blood pressure 74 mm[Hg] Pacc 2 Work Phone: [facility] 02-14-2025 07:42-0400 Heart rate 80 /min Pacc 2 Work Phone: [facility] 02-14-2025 07:42-0400 Respiratory rate 16 /min Pacc 2 Work Phone: [facility] 02-14-2025 07:42-0400 SaO2% (BldA) [Mass fraction] 96 % Pacc 2 Work Phone: [facility] 02-14-2025 07:42-0400 Systolic blood pressure 114 mm[Hg] Pacc 2 Work Phone: [facility] 12-28-2024 09:34-0400 Body mass index (BMI) [Ratio] 41.06 kg/m2 Zeinab Wood MD Work Phone: [facility] 12-28-2024 09:34-0400 Body weight 110.2 kg Zeinab Wood MD Work Phone: [facility] 12-28-2024 09:34-0400 Diastolic blood pressure 65 mm[Hg] Zeinab Wood MD Work Phone: [facility] 12-28-2024 09:34-0400 Heart rate 109 /min Zeinab Wood MD Work Phone: [facility] 12-28-2024 09:34-0400 Systolic blood pressure 104 mm[Hg] Zeinab Wood MD Work Phone: [facility] 07-13-2024 17:34-0400 Body mass index (BMI) [Ratio] 40.77 kg/m2 Estevan Polanco [employer]TER Work Phone: [facility] 07-13-2024 17:34-0400 Body temperature 98.71 [degF] Estevan Polanco [employer]TER Work Phone: [facility] 07-13-2024 17:34-0400 Body weight 111.13 kg Estevan Polanco [employer] Work Phone: [facility] 07-13-2024 17:34-0400 Diastolic blood pressure 88 mm[Hg] Estevan Polanco [employer]TER Work Phone: [facility] 07-13-2024 17:34-0400 Heart rate 87 /min Estevan Polanco [employer] Work Phone: [facility] 07-13-2024 17:34-0400 SaO2% (BldA) [Mass fraction] 99 % Estevan Polanco [employer] Work Phone: [facility] 07-13-2024 17:34-0400 Systolic blood pressure 124 mm[Hg] Estevan Polanco [employer] Work Phone: [facility] 05-30-2024 09:38-0400 Body mass index (BMI) [Ratio] 40.61 kg/m2 Zeinab Wood MD Work Phone: [facility] 05-30-2024 09:38-0400 Body weight 109 kg Zeinab Wood MD Work Phone: [facility] 05-30-2024 09:38-0400 Diastolic blood pressure 72 mm[Hg] Zeinab Wood MD Work Phone: [facility] 05-30-2024 09:38-0400 Heart rate 87 /min Zeniab Wood MD Work Phone: [facility] 05-30-2024 09:38-0400 Respiratory rate 18 /min Zeinab Wood MD Work Phone: [facility] 05-30-2024 09:38-0400 Systolic blood pressure 109 mm[Hg] Zeinab Wood MD Work Phone: [facility] 06-30-2023 10:52-0400 Body height 164 cm Erik Pineda MD Work Phone: [facility] 06-30-2023 10:52-0400 Body temperature 98.71 [degF] Erik Pineda MD Work Phone: [facility] 06-30-2023 10:52-0400 Body weight 101.88 kg Erik Pineda MD Work Phone: [facility] 06-30-2023 10:52-0400 Diastolic blood pressure 58 mm[Hg] Erik Pineda MD Work Phone: [facility] 06-30-2023 10:52-0400 Heart rate 103 /min Erik Pineda MD Work Phone: [facility] 06-30-2023 10:52-0400 Respiratory rate 18 /min Erik Pineda MD Work Phone: [facility] 06-30-2023 10:52-0400 SaO2% (BldA) [Mass fraction] 97 % Erik Pineda MD Work Phone: [facility] 06-30-2023 10:52-0400 Systolic blood pressure 117 mm[Hg] Erik Pineda MD Work Phone: [facility] 05-06-2023 07:10-0400 Body height 165.1 cm MD Sammie Gonzalez Work Phone: [facility] 05-06-2023 07:10-0400 Body weight 102.05 kg MD Sammie Gonzalez Work Phone: [facility] 03-31-2023 09:30-0400 Body height 165.1 cm Russell Shields Other [employer] Other 03-31-2023 09:30-0400 Body mass index (BMI) [Ratio] 36.94 kg/m2 Russell Shields Other [employer] Other 03-31-2023 09:30-0400 Body weight 100.7 kg Russell Shields Other [employer] Other 03-31-2023 09:30-0400 Diastolic blood pressure 68 mm[Hg] Russell Shields Other [employer] Other 03-31-2023 09:30-0400 Systolic blood pressure 109 mm[Hg] Russell Shields Other [employer] Other 09-29-2022 15:28-0500 Body weight 114.08 kg Zeinab Wood MD Work Phone: [facility] 09-29-2022 15:28-0500 Diastolic blood pressure 56 mm[Hg] Zeinab Wood MD Work Phone: [facility] 09-29-2022 15:28-0500 Heart rate 99 /min Zeinab Wood MD Work Phone: [facility] 09-29-2022 15:28-0500 Systolic blood pressure 115 mm[Hg] Zeinab Wood MD Work Phone: [facility] 07-17-2022 15:45-0400 Body height 165.1 cm Beti Bowles Other [employer] Other 03-31-2022 14:00-0400 Body height 165.1 cm Beti Bowles Other [employer] Other 03-31-2022 14:00-0400 Body mass index (BMI) [Ratio] 39.6 kg/m2 Beti Bowles Other [employer] Other 03-31-2022 14:00-0400 Body weight 107.96 kg Beti Bowles Other [employer] Other 01-27-2022 14:15-0400 Body height 165.1 cm Beti Bowles Other [employer] Other 01-27-2022 14:15-0400 Body mass index (BMI) [Ratio] 39.93 kg/m2 Beti Bowles Other [employer] Other 01-27-2022 14:15-0400 Body weight 108.86 kg Beti Bowles Other [place] [employer] Other 01-20-2022 11:03-0400 Body height 165.1 cm Zeinab Wood MD Work Phone: [facility] 01-20-2022 11:03-0400 Body weight 104.06 kg Zeinab Wood MD Work Phone: [facility] 01-20-2022 11:03-0400 Diastolic blood pressure 67 mm[Hg] Zeinab Wood MD Work Phone: [facility] 01-20-2022 11:03-0400 Heart rate 108 /min Zeinab Wood MD Work Phone: [facility] 01-20-2022 11:03-0400 Systolic blood pressure 113 mm[Hg] Zeinab Wood MD Work Phone: [facility] 11-20-2021 16:15-0500 Body height 165.1 cm Elyssa Calvey Other [employer] Other 11-20-2021 16:15-0500 Body mass index (BMI) [Ratio] 39.93 kg/m2 Elyssa Calvey Other [employer] Other 11-20-2021 16:15-0500 Body weight 108.86 kg Elyssa Calvey Other [employer] Other 10-08-2021 15:15-0500 Body height 165.1 cm Elyssa Calvey Other [employer] Other 10-08-2021 15:15-0500 Body mass index (BMI) [Ratio] 39.43 kg/m2 Elyssa Calvey Other [employer] Other 10-08-2021 15:15-0500 Body weight 107.5 kg Elyssa Gomes Other [employer] Other 08-28-2021 16:15-0500 Body height 165.1 cm Elyssa Gomes Other [employer] Other 08-28-2021 16:15-0500 Body mass index (BMI) [Ratio] 38.77 kg/m2 Elyssa Gomes Other [employer] Other 08-28-2021 16:15-0500 Body weight 105.69 kg Elyssa Gomes Other [employer] Other Encounters Encounter Date Encounter Type Care Provider Facility Start: 04-25-2025 End: 04-26-2025 Refill Zeinab Wood MD Work Phone: Rheumatology Comment on above: Refill Request Start: 04-24-2025 End: 04-24-2025 ambulatory Ridge Hollingsworth MD Facility:[facility] Start: 04-12-2025 End: 04-12-2025 Telemedicine consultation with patient Rachele Fenton APRN.SHAGGER Work Phone: Neurology Start: 04-12-2025 End: 04-12-2025 ambulatory Rachele Fenton APRN.SHAGGER Work Phone: Neurology Comment on above: Meningioma (HCC) (Pr imary Dx); Chronic daily headache Start: 03-29-2025 End: 03-29-2025 Telemedicine consultation with patient Erik Pineda MD Work Phone: [facility] [place] Start: 03-29-2025 End: 03-29-2025 ambulatory Erik Pineda MD Work Phone: [facility] [place] Comment on above: Intracranial meningi sera (HCC) (Primary Dx); Postprocedural state; Dizziness and giddiness Start: 03-26-2025 End: 03-27-2025 ambulatory Erik Pineda MD Work Phone: [facility] Comment on above: Incision Start: 03-22-2025 End: 03-22-2025 ambulatory Sammie Gonzalez MD Work Phone: [facility] Work Phone: Start: 03-22-2025 End: 03-22-2025 Patient encounter procedure Elyssa Gomes MD -[facility] Work Phone: Start: 03-20-2025 End: 03-20-2025 [...] Office outpatient visit 10 minutes Zeinab Mckinney [facility] Work Phone: [facility] Start: 03-13-2025 ambulatory Zeinab morley [facility] Start: 03-12-2025 End: 03-13-2025 Refill Rachele Fenton APRN.SHAGGER Work Phone: Neurology [facility] Comment on above: Refill Request Start: 03-08-2025 End: 03-08-2025 Telephone encounter Mario Alberto Phillips RN [facility] [place] Comment on above: Surgical Followup Start: 03-06-2025 End: 03-06-2025 Refill Zeinab Wood MD Work Phone: Rheumatology Comment on above: Refill Request Start: 03-06-2025 End: 03-06-2025 Nursing evaluation of patient and report Mario Alberto Phillips RN [facility] [place] Comment on above: S/P craniotomy (Prim kt Dx); Intracranial meningioma (HCC); Postop check Start: 03-06-2025 End: 03-06-2025 ambulatory SAMMIE GONZALEZ Facility:[facility] Start: 03-02-2025 End: 03-02-2025 Admission to same day surgery center Heather Moy MARILEE.SHAGGER Work Phone: Neurosurgery Comment on above: Benign neoplasm of m eninges (HCC) (Primary Dx) Start: 03-02-2025 End: 03-02-2025 Telemedicine consultation with patient Heather Moy MARILEE.SHAGGER Work Phone: Neurosurgery Start: 03-02-2025 End: 03-02-2025 ambulatory [facility] Facility:[facility] Start: 02-24-2025 End: 02-27-2025 Refill Zeinab Wood MD Work Phone: [facility] Comment on above: Refill Request Start: 02-23-2025 End: 02-23-2025 Telephone encounter [facility] [place] Comment on above: Surgical Followup Start: 02-20-2025 End: 02-22-2025 Evaluation and management of inpatient SAMMIE GONZALEZ Facility:[facility] Start: 02-17-2025 End: 02-17-2025 Telephone encounter Mario Alber[facility] Phillips [facility] [place] Comment on above: PreOp Call Start: 02-15-2025 End: 02-15-2025 Telemedicine consultation with patient Erik Pineda MD Work Phone: [facility] Start: 02-15-2025 End: 02-17-2025 ambulatory Erik Pineda MD Work Phone: [facility] [place] Comment on above: Intracranial meningi sera (HCC) (Primary Dx) Consent Start: 02-15-2025 End: 02-15-2025 Telephone encounter Mehul Martin APRN.SHAGGER Work Phone: Pre Anesthesia Comment on above: Patient Update Start: 02-15-2025 End: 02-15-2025 ambulatory SAMMIE Ivis JAKUBPiedad Facility:[facility] Start: 02-15-2025 Encounter for other preprocedural examination [facility] Start: 02-14-2025 Encounter for other preprocedural examination [facility] Start: 02-14-2025 End: 02-14-2025 Patient encounter status Mri (1.5t) Work Phone: [facility] Start: 02-14-2025 End: 02-14-2025 Subsequent hospital visit by physician Mri [facility] Alyssa (1.5t) Work Phone: Radiology Comment on above: Intracranial meningi sera (HCC) [D32.0] Start: 02-14-2025 End: 02-14-2025 Admission to establishment [facility] Work Phone: Pre Anesthesia Start: 02-14-2025 End: 02-14-2025 Anesthesia consultation [facility] Work Phone: Pre Anesthesia Comment on [...] Start: 02-14-2025 End: 02-14-2025 Patient encounter status [facility] Work Phone: [facility] Start: 02-14-2025 End: 02-14-2025 Preprocedural examination done [facility] Work Phone: [facility] Work Phone: Start: 02-14-2025 End: 02-14-2025 ambulatory ZEINAB WOOD Facility:[facility] Start: 02-10-2025 End: 02-10-2025 Patient encounter procedure Sammie Gonzalez MD Work Phone: [facility]ound [place] Work Phone: Start: 02-10-2025 End: 02-10-2025 ambulatory Sammie Gonzalez MD Work Phone: [facility] Work Phone: Start: 02-01-2025 End: 02-01-2025 Patient encounter procedure Sammie Gonazlez MD Work Phone: [facility] Work Phone: Start: 01-23-2025 End: 01-26-2025 Refill Mohammad Hamdan COMPUTER SYSTEMS ENGINEER.SHAGGER Work Phone: Neurology [facility] Comment on above: Med Change Request Start: 01-06-2025 End: 01-06-2025 ambulatory SAMMIE GONZALEZ Facility:[facility] Start: 12-29-2024 End: 12-29-2024 Refill Mohammad Hamdan COMPUTER SYSTEMS ENGINEER.SHAGGER Work Phone: Neurology [facility] Comment on above: Refill Request Start: 12-28-2024 End: 12-28-2024 Office outpatient visit 25 minutes Zeinab Wood MD Work Phone: Rheumatology Comment on above: Inflammatory arthrit is (Primary Dx); Fibromyalgia; Encounter for medication monitoring Start: 12-28-2024 End: 12-28-2024 ambulatory ZEINAB WOOD Facility:[facility] Start: 12-27-2024 End: 12-27-2024 ambulatory Sammie Gonzalez MD Work Phone: [facility] Work Phone: Start: 12-27-2024 End: 12-27-2024 Patient encounter procedure Sammie Gonzalez MD Work Phone: [facility]ician [facility] Work Phone: Start: 12-13-2024 End: 12-13-2024 Patient encounter procedure Sammie Gonzalez MD Work Phone: [facility] Start: 12-13-2024 End: 12-13-2024 ambulatory Sammie Gonzalez MD Work Phone: [facility] Work Phone: Start: 12-05-2024 End: 12-05-2024 Telephone encounter Mario Alberto Phillips RN [facility] Comment on above: Care Coordination (M yCklaust Follow up - Surgery Planning ) Start: 11-03-2024 End: 11-03-2024 Patient encounter procedure Sammie Gonzalez MD Work Phone: [facility] Work Phone: Start: 11-03-2024 End: 11-03-2024 ambulatory Sammie Gonzalez MD Work Phone: [facility] Work Phone: Start: 10-10-2024 End: 10-10-2024 Telephone encounter Zeinab Wood MD Work Phone: Rheumatology Comment on above: 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 Livestock Inspector - O ther (Lab order problem/) Refill Request Start: 09-27-2024 End: 09-27-2024 ambulatory Sammie Gonzalez MD Work Phone: [facility] Work Phone: Start: 09-27-2024 End: 09-27-2024 Patient encounter procedure Sammie Gonzalez MD Work Phone: [facility] Work Phone: Start: 09-20-2024 End: 09-21-2024 Telephone encounter Zeinab Wood MD Work Phone: Rheumatology Comment on above: Results (Lab results from [facility]) Start: 09-20-2024 End: 09-20-2024 Patient encounter procedure Sammie Gonzalez MD Work Phone: [facility] Start: 09-20-2024 End: 09-20-2024 ambulatory Sammie Gonzalez MD Work Phone: [facility] Work Phone: Start: 09-16-2024 End: 09-16-2024 Patient encounter procedure Sammie Gonzalez MD Work Phone: [facility] Work Phone: Start: 09-16-2024 End: 09-16-2024 ambulatory Sammie Gonzalez MD Work Phone: [facility] Work Phone: Start: 09-09-2024 End: 09-15-2024 ambulatory Zeinab Wood MD Work Phone: Rheumatology Start: 09-09-2024 End: 09-15-2024 Patient encounter procedure Zeinab Wood MD Work Phone: Rheumatology Comment on above: Labs Start: 08-28-2024 End: 09-09-2024 Refill Zeinab Wood MD Work Phone: Rheumatology Comment on above: Refill Request Start: 08-01-2024 End: 08-01-2024 ambulatory Ridge Holl[facility]worth MD [facility] Start: 07-18-2024 End: 07-18-2024 ambulatory Ridge Hollingsworth MD Facility: [facility] Start: 07-13-2024 End: 07-13-2024 ambulatory ESTEVAN POLANCO Not Available Start: 07-13-2024 End: 07-13-2024 Office outpatient visit 25 minutes Estevan Polanco CARGO ROUTER Work Phone: [facility] Comment on above: Tooth infection (Ingrid cezar Dx) Start: 07-04-2024 End: 07-04-2024 ambulatory Ridge [facility]worth MD [facility] Start: 06-22-2024 End: 06-22-2024 Patient encounter procedure MD Sammie Gonzalez Work Phone: [facility]Lab [facility] Start: 06-22-2024 End: 06-22-2024 ambulatory MD Sammie Gonzalez Work Phone: [facility] Work Phone: Start: 06-21-2024 End: 06-21-2024 ambulatory MD Sammie Gonzalez Work Phone: [facility] Work Phone: Start: 06-21-2024 End: 06-21-2024 Patient encounter procedure MD Sammie Gonzalez Work Phone: [facility] Work Phone: Start: 06-20-2024 End: 06-20-2024 ambulatory Rdige Hollingsworth MD Facility: [employer] Start: 05-30-2024 End: 05-30-2024 ambulatory ZEINAB WOOD Facility:[facility] Start: 05-30-2024 End: 05-30-2024 Patient encounter procedure Zeinab Wood MD Work Phone: Rheumatology Comment on above: Inflammatory arthrit is (Primary Dx); Fibromyalgia; Medication monitoring encounter Start: 05-25-2024 End: 05-26-2024 Refill Rachele Fenton APRN.CNP Work Phone: Neurology [facility] Comment on above: Refill Request Start: 05-12-2024 End: 05-12-2024 Patient encounter procedure MD Sammie Gonzalez Work Phone: [facility] Start: 05-12-2024 End: 05-12-2024 ambulatory MD Sammie Gonzalez Work Phone: [facility] Work Phone: Start: 05-09-2024 End: 05-09-2024 ambulatory Ridge Hollingsworth MD Facility:[facility] Start: 03-25-2024 Refill Zeinab Wood MD Work Phone: Rheumatology Comment on above: Refill Request Start: 03-21-2024 ambulatory Rachele Mendes n COMPUTER SYSTEMS ENGINEER.SHAGGER Work Phone: Neurology Headache [facility] Comment on above: Robaxin Start: 03-18-2024 ambulatory Rachele salazar COMPUTER SYSTEMS ENGINEER.SHAGGER Work Phone: Neurology Headache [facility] Comment on above: Insurance Start: 03-08-2024 Telephone encounter Erik martinez MD Work Phone: [facility] Comment on above: epidural steroid inj ection Start: 03-04-2024 End: 03-04-2024 ambulatory MD Sammie Gonzalez Work Phone: [facility] Work Phone: Start: 03-04-2024 End: 03-04-2024 Patient encounter procedure MD Sammie Gonzalez Work Phone: [facility] Work Phone: Start: 02-15-2024 End: 02-15-2024 ambulatory MD Sammie Gonzalez Work Phone: [facility] Work Phone: Start: 02-15-2024 End: 02-15-2024 Patient encounter procedure MD Sammie Gonzalez Work Phone: [facility]-Ultrasound [facility] [place] Work Phone: Start: 02-10-2024 Telephone encounter Rachele acevedo COMPUTER SYSTEMS ENGINEER.SHAGGER Work Phone: Neurology Comment on above: Insurance Authorizat ion; Aurelio PA - Medicare / [employer]. Start: 02-09-2024 End: 02-09-2024 ambulatory MD Sammie Gonzalez Work Phone: [facility] Work Phone: Start: 02-09-2024 End: 02-09-2024 Patient encounter procedure MD Sammie Gonzalez Work Phone: [facility]-MRI [address] Work Phone: Start: 02-05-2024 End: 02-05-2024 ambulatory Rachele Fenton COMPUTER SYSTEMS ENGINEER.SHAGGER Work Phone: Neurology [facility] Comment on above: Meningioma (HCC) (Pr imary Dx); Chronic daily headache Start: 02-05-2024 End: 02-05-2024 Telemedicine consultation with patient Rachele Fenton COMPUTER SYSTEMS ENGINEER.SHAGGER Work Phone: Neurology [facility] Start: 02-02-2024 End: 02-02-2024 ambulatory Fellow Appointments Work Phone: [facility] Comment on above: Intracranial meningi sera (HCC) (Primary Dx) Start: 02-02-2024 End: 02-02-2024 Telemedicine consultation with patient Fellow Appointments Work Phone: [facility] Start: 02-02-2024 Telephone encounter Mario Alberto Phillips RN [facility] Comment on above: Appointment Start: 02-01-2024 End: 02-01-2024 ambulatory YOLA CARABALLO Not Available Start: 01-30-2024 Refill Fahad Corey MD Work Phone: [facility] Comment on above: Refill Request Start: 01-29-2024 ambulatory ERIK PINEDA Facilit y:[facility] Start: 01-29-2024 End: 01-29-2024 Subsequent hospital visit by physician [facility] Work Phone: [facility] Comment on above: 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 eninges (HCC) [D32.9] Start: 01-27-2024 Refill Zeinab Wood MD Work Phone: Rheumatology Comment on above: Refill Request Start: 01-26-2024 End: 01-26-2024 Patient encounter procedure MD Sammie Gonzalez Work Phone: [facility] Work Phone: Start: 01-19-2024 Telephone encounter Mario lAberto Phillips RN [facility] Comment on above: Schedule Surgery ([place] rgery Planning ) Start: 01-08-2024 Telephone encounter Zeinab kenyon MD Work Phone: Rheumatology Comment on above: Results Start: 01-08-2024 End: 01-08-2024 ambulatory MD Sammie Gonzalez Work Phone: [facility] Work Phone: Start: 01-08-2024 End: 01-08-2024 Patient encounter procedure MD Sammie Gonzalez Work Phone: [facility]-Lab [facility] Start: 01-05-2024 Telephone encounter Mario Alberto Phillips RN [facility] Comment on above: Schedule Surgery Start: 01-04-2024 Telephone encounter Zeinab kenyon MD Work Phone: Rheumatology Comment on above: Lab Orders/FAX Start: 12-20-2023 End: 12-20-2023 ambulatory WANDY PHILLIPS Not Available Start: 11-29-2023 Refill Zeinab Wood MD Work Phone: Rheumatology Comment on above: Refill Request Start: 11-25-2023 End: 11-25-2023 Patient encounter procedure MD Sammie Gonzalez Work Phone: [facility] Work Phone: Start: 11-12-2023 Refill Zeinab Wood MD Work Phone: Rheumatology Comment on above: Refill Request Start: 11-11-2023 Telephone encounter Mario Alberto Phillips RN [facility] Comment on above: Care Coordination (f ollow up) Start: 11-11-2023 End: 11-11-2023 Patient encounter procedure MD Sammie Gonzalez Work Phone: [facility]-Lab [facility] Start: 11-10-2023 Refill Zeinab Wood MD Work Phone: Rheumatology Comment on above: Refill Request Start: 11-09-2023 Refill Zeinab Wood MD Work Phone: Rheumatology Comment on above: Refill Request Start: 07-05-2023 Admission to [facility] Erik Pineda MD Work Phone: [facility] [place] Comment on above: Surgery Start: 07-05-2023 ambulatory Erik castañeda MD Work Phone: [facility] Start: 07-02-2023 Telephone encounter Erik martinez MD Work Phone: [facility] Comment on above: Patient Update (Disc uss Surgery March 2024) Start: 06-30-2023 End: 06-30-2023 Patient encounter procedure Erik Pineda MD Work Phone: [facility] Comment on above: Intracranial meningi sera (HCC) (Primary Dx) Start: 06-26-2023 End: 06-26-2023 Office outpatient new 45 minutes Fahad Corey MD Work Phone: Neurology Headache [facility] Comment on above: Medication overuse h eadache (Primary Dx); Brain mass; Meningioma (HCC); Chronic daily headache Start: 05-22-2023 End: 05-22-2023 ambulatory MD Sammie Gonzalez Work Phone: [facility] Work Phone: Start: 05-22-2023 End: 05-22-2023 Patient encounter procedure MD Sammie Gonzalez Work Phone: [facility]Lab [facility] Start: 05-13-2023 Telephone encounter Moira thayer APRN.SHAGGER Work Phone: [facility] Comment on above: TRIAGE Start: 05-06-2023 End: 05-06-2023 ambulatory MD Sammie Gonzalez Work Phone: [facility] Work Phone: Start: 05-06-2023 End: 05-06-2023 Patient encounter procedure MD Sammie Gonzalez Work Phone: [facility]MRI [facility] [place] Work Phone: Start: 04-29-2023 End: 04-29-2023 ambulatory MD Sammie Gonzalez Work Phone: [facility] Work Phone: Start: 04-29-2023 End: 04-29-2023 Patient encounter procedure MD Sammie Gonzalez Work Phone: [facility] Work Phone: Start: 04-15-2023 End: 04-15-2023 ambulatory MD Sammie Gonzalez Work Phone: [facility] Work Phone: Start: 04-15-2023 End: 04-15-2023 Patient encounter procedure MD Sammie Gonzalez Work Phone: [facility]Lab [facility] Start: 04-13-2023 Refill Zeinab Wood MD Work Phone: Rheumatology Comment on above: Refill Request Start: 04-13-2023 Refill Zeinab Wood MD Work Phone: Rheumatology Comment on above: Refill Request Start: 04-06-2023 End: 04-06-2023 Patient encounter procedure MD Sammie Gonzalez Work Phone: [facility]-Nuc Med [facility] [place] Work Phone: Start: 03-31-2023 End: 03-31-2023 ambulatory Russell Shields Other [employer] Other Start: 03-31-2023 Patient encounter procedure Russell Shields [facility] G[facility] Start: 03-07-2023 Refill Zeinab Wood MD Work Phone: Rheumatology Comment on above: Refill Request Start: 01-18-2023 Refill Zeinab Wood MD Work Phone: Rheumatology Comment on above: Refill Request Start: 12-17-2022 End: 12-17-2022 ambulatory Elyss[address] Gomes Other [facility] [employer] Other Start: 12-17-2022 Office outpatient visit 15 minutes Elyssa Mireya [facility] Start: 12-11-2022 ambulatory Zeinab Wood MD [...] encounter procedure MD Sammie Gonzalez Work Phone: [facility] Start: 09-24-2022 End: 09-24-2022 ambulatory MD Sammie Gonzalez Work Phone: [facility] Work Phone: Start: 09-24-2022 Office outpatient visit 15 minutes Elyssa Mireya [facility] Start: 08-05-2022 Office outpatient visit 15 minutes Elyssa Gomes [facility] Start: 08-05-2022 End: 08-05-2022 ambulatory MD Sammie Gonzalez Work Phone: [facility] Work Phone: Start: 08-05-2022 End: 08-05-2022 Patient encounter procedure MD Sammie Gonzalez Work Phone: [facility] Start: 07-29-2022 End: 07-29-2022 ambulatory MD Sammie Gonzalez Work Phone: [facility] Work Phone: Start: 07-29-2022 End: 07-29-2022 Patient encounter procedure MD Sammie Meyer Phone: [facility]-Lab [facility] Start: 07-17-2022 End: 07-17-2022 ambulatory Beti Bowles Other [employer] Other Start: 07-17-2022 Office outpatient visit 15 minutes Beti Bowles [facility] Start: 06-25-2022 End: 06-25-2022 ambulatory Beti Bowles Other [employer] Other Start: 06-25-2022 Office outpatient visit 15 minutes Beti Bowles [facility] Start: 05-10-[address] SAMMIE GONZALEZ Facility : Start: 05-06-2022 End: 05-06-2022 Patient encounter procedure MD Sammie Meyer Phone: [facility] Start: 05-01-2022 End: 05-01-2022 Patient encounter procedure MD Sammie Meyer Phone: [facility]-Lab [facility] Start: 03-31-2022 End: 03-31-2022 ambulatory Beti Bowles Other [employer] Other Start: 03-31-2022 Office outpatient visit 15 minutes Beti Bowles [facility] Start: 03-21-2022 End: 03-21-2022 Discharged Recurring MD Sammie Meyer Phone: [facility]-Physical Therapy [place] Start: 01-27-2022 End: 01-27-2022 ambulatory Beti Bowles Other [employer] Other Start: 01-27-2022 Office outpatient visit 15 minutes Beti Bowles [facility] Start: 01-24-2022 End: 01-24-2022 ambulatory Elyssa Gomes Other [employer] Other Start: 01-24-2022 Office outpatient visit 15 minutes Elyssa Calvey [facility] Start: 01-20-2022 End: 01-20-2022 ambulatory Beti Jelena Other [employer] Other Start: 01-20-2022 Office outpatient visit 15 minutes Beti Jelena [facility] Start: 01-20-2022 End: 01-20-2022 Patient encounter procedure Zeinab Wood MD Work Phone: Rheumatology Comment on above: Inflammatory arthrit is (Primary Dx); Myalgia Start: 12-24-2021 End: 12-24-2021 ambulatory Elyssa Gomes Other [employer] Other Start: 12-24-2021 Postop follow up vis it related to original px Elyssa Calvey [facility] Start: 12-19-2021 End: 12-19-2021 ambulatory Beti Jelena Other [employer] Other Start: 12-19-2021 Telephone encounter Beti Jelena [facility] Start: 12-02-2021 End: 12-02-2021 ambulatory Beti Bowles Other [employer] Other Start: 12-02-2021 Office outpatient visit 15 minutes Beti Jelena [facility] Start: 11-20-2021 End: 11-20-2021 ambulatory Elyssa Calvmary Other [employer] Other Start: 11-20-2021 Postop follow up vis it related to original px Elyssa Calvey [facility] Start: 10-08-2021 End: 10-08-2021 ambulatory Elyssa Calvey Other [employer] Other Start: 10-08-2021 Office outpatient visit 25 minutes Elyssamaxine Gomes [facility] Start: 08-28-2021 End: 08-28-2021 ambulatory Elyssamaxine Gomes Other [employer] Other Start: 08-28-2021 Office outpatient visit 25 minutes Elyssamaxine Gomes [facility] Start: 08-12-2021 End: 08-12-2021 ambulatory Elyssamaxine Gomes Other [employer] Other Start: 08-12-2021 Telephone encounter Elyssa Mireya [facility] Start: 06-18-2021 Office outpatient visit 15 minutes Elyssa Gomes [facility] Start: 06-05-2021 Office outpatient visit 15 minutes Beti Bowles [facility] Start: 05-11-2017 End: 05-12-2017 Ambulatory DEFAULT PHYSICIAN Facility:[facility] Procedures Date Procedure Procedure Detail Performing Clinician Start: 03-13-2025 End: 03-13-2025 Documentation of current medications Zeinab Mckinney WHCNP Work Phone: Start: 03-13-2025 End: 03-13-2025 Medroxyprogesterone acetate Zeinab Mckinney W HCNP Work Phone: Start: 02-14-2025 Mri brain brain stem w/o w/contrast material Erik Pineda MD Work Phone: Start: 02-14-2025 Antibody screen ERIK MCKEON Comment on above: Order Comment: Speci men Type: BLOOD SPECIMENOrdering Facility: [facility] Address: [address] [place] [address] Performed By: #### T [id number] ####CC MAIN BLOOD BANKCLIA [id number] [place] [address] [place] Start: 02-10-2025 Ultrasonography [...] Author Start: 08-17-2025 Hemoglobin A1c measurement HbA1C [facility] Start: 06-29-2025 End: 06-29-2025 Patient encounter procedure 06/29/2025 1:40 PM EDT Office Visit Rheumatology [address] [place] [address] Zeinab Wood MD [address] [address] 6 month follow up Rheumatology Comment on above: 6 month follow up Start: 06-27-2025 [facility] Work Phone: Start: 06-22-2025 End: 06-22-2025 Patient encounter procedure 06/22/2025 2:20 PM EDT Office Visit Rheumatology [address] [place] [address] Zeinab Wood MD [address] [address] 6 month follow up Rheumatology Comment on above: 6 month follow up Start: 05-24-2025 [facility] Work Phone: Start: 05-15-2025 Influenza vaccination [facility] Start: 04-12-2025 End: 04-12-2025 ambulatory 04/12/2025 7:00 AM EDT [facility] Neurology [address] [place] [address] Rachele Fenton APRN.SHAGGER [address] [place] [address] Tension headaches Neurology Comment on above: Tension headaches Start: 03-29-2025 End: 03-29-2025 ambulatory 03/29/2025 10:30 AM EDT [facility] [address] [place] [address] Erik Pineda MD [address] [place] [address] postop [facility] Comment on above: postop Start: 03-13-2025 [facility] Work Phone: Start: 03-06-2025 End: 03-06-2025 Nursing evaluation of patient and report 03/06/2025 10:30 AM EDT Nurse Visit [facility] [place] [address] [place] [address] Mario Alberto Phillips, RN [address] [place] [address] postop [facility] [place] Comment on above: postop Start: 03-02-2025 End: 03-02-2025 Admission to same day surgery center 03/02/2025 1:00 PM EDT [facility] Neurosurgery [address] [address] Heather Moy, COMPUTER SYSTEMS ENGINEER.SHAGGER [address] [place] [address] Surgical Pathology discussion Neurosurgery Comment on above: Surgical Pathology discussion Start: 02-20-2025 End: 02-20-2025 Admission to same day surgery center 02/20/2025 12:45 PM EDT - 02/20/2025 6:45 PM EDT Surgery Admitting [address] [place] [address] Erik Pineda MD [address] [place] [address] ORBITOCRANIAL TO ANT CRAN FOSSA W/ SUPRAORB [...] EDT Hospital Encounter Admitting [address] [place] [address] Erik Pineda MD [address] [facility] [address] Intracranial meningioma (HCC) [D32.0], Preop testing [Z01.818] Admitting Comment on above: Intracranial meningioma (HCC) [D32.0], P reop testing [Z01.818] Start: 02-20-2025 End: 02-20-2025 Admission to same day surgery center 02/20/2025 7:30 AM EDT - 02/20/2025 1:30 PM EDT Surgery Admitting [address] [place] [id number] Erik Pineda MD [address] [place] [id number] ORBITOCRANIAL TO ANT CRAN FOSSA W/ SUPRAORB [...] 7:30 AM EDT Hospital Encounter Admitting [address] [place] [id number] Erik Pineda MD [address] [place] [address] Intracranial meningioma (HCC) [D32.0], Preop testing [Z01.818] Admitting Comment on above: Intracranial meningioma (HCC) [D32.0], P reop testing [Z01.818] Start: 02-15-2025 End: 02-15-2025 Admission to same day surgery center 02/15/2025 2:30 PM EDT [facility] Brain Tumor [place] [address] [place] [address] Erik Pineda MD [address] [place] [address] surgery discussion/ consent / MRI review [facility] Comment on above: surgery discussion/ consent / MRI review Start: 02-14-2025 End: 05-16-2025 CONFIRM BLOOD TYPE CONFIRM BLOOD TYPE Blood Bank Routine Pre-op evaluation Expected: 02/14/2025, Expires: 05/16/2025 [facility] Comment on above: Expected: 02/14/2025, Expires: Start: 02-14-2025 End: 05-16-2025 Hemoglobin A1c in Blood HEMOGLOBIN A1C Lab Routine Pre-op evaluation Type 2 diabetes mellitus without complication, without long-term current use of insulin (HCC) Expected: 02/14/2025, Expires: 05/16/2025 [facility] Work Phone: Comment on above: Expected: 02/14/2025, Expires: Start: 02-14-2025 End: 02-14-2025 Patient encounter procedure 02/14/2025 9:20 AM EDT Appointment Radiology [address] [address] MRI BRAIN WO/W IVCON Radiology Comment on above: MRI BRAIN WO/W IVCON Start: 02-14-2025 End: 02-14-2025 ambulatory 02/14/2025 8:30 AM EDT Results Only [facility] [address] [address] Labs [facility] Comment on above: Labs Start: 02-14-2025 End: 02-14-2025 Anesthesia consultation 02/14/2025 7:40 AM EDT PAT Pre Anesthesia [address] [place] [address] 2, [facility] [address] [place] [address] PRE OP CLEARANCE Pre Anesthesia Comment on above: PRE OP CLEARANCE Start: 01-06-2025 End: 01-06-2025 ambulatory 01/06/2025 8:45 AM EDT [facility] Neurology Headache [facility] [address] [place] [address] Rachele Fenton APRN.SHAGGER [address] [place] [address] I want to stop taking my medicine Neurology Headache [facility] Comment on above: I want to stop taking my medicine Start: 12-28-2024 End: 12-28-2024 Patient encounter procedure 12/28/2024 9:20 AM EDT Office Visit Rheumatology [address] [place] [address] Zeinab Wood MD [address] [place] [address] 6 month follow up Rheumatology Comment on above: 6 month follow up Start: 12-27-2024 Plain X-ray of right wrist XR wrist RT min 3V* [facility] Start: 12-27-2024 XR Wrist - right GE 3 Views [facility] Start: 11-03-2024 Plain X-ray of left shoulder XR shoulder LT min 2V* [facility] Start: 11-03-2024 XR Shoulder - left Views [facility] Start: 09-14-2024 Medicare Advantage Annual Wellness Visit Medicare Advantage Annual Wellness Visit [facility] Start: 05-30-2024 End: 05-30-2024 Patient encounter procedure 05/30/2024 9:40 AM EDT Office Visit Rheumatology [address] [place] [address] Zeinab Wood MD [address] [place], [place] [id number] Return in about 8 months (around 05/29/2024) for arthralgias, FM . Rheumatology Comment on above: Return in about 8 months (around 05/29/20) for arthralgias, FM . Start: 05-15-2024 Covid-19 Vaccine ( season) Covid-19 Vaccine ( season) [facility] Start: 05-15-2024 Covid-19 Vaccine () Covid-19 Vaccine () [facility] Start: 05-15-2024 Influenza vaccination [facility] Start: 04-04-2024 End: 04-04-2024 Admission to same day surgery center 04/04/2024 7:30 AM EDT - 04/04/2024 2:30 PM EDT Surgery Admitting [address] [place] [address] Erik Pineda MD [address] [address] ORBITOCRANIAL TO ANT CRAN FOSSA W/ SUPRAORB [...] AM EDT Hospital Encounter Admitting [address] [place] [address] Erik Pineda MD [address] [place] [address] Intracranial meningioma (HCC) [D32.0] Admitting Comment on above: Intracranial meningioma (HCC) [D32.0] Start: 03-22-2024 End: 03-22-2024 Patient encounter procedure Pre Anesthesia Comment on above: Preop, ORBITOCRANIAL TO ANT CRAN FOSSA W / SUPRAORB RIDGE OSTEOTOMY & ELEV FRONT&TEMP LOBE Preop lab and nasal swab Start: 03-04-2024 DIABETES SCREEN DIABETES SCREEN [facility] Start: 03-04-2024 Diabetes Screening Diabetes Screening [facility] Start: 02-05-2024 End: 02-05-2024 ambulatory 02/05/2024 7:00 AM EDT [facility] Neurology Headache [facility] [address] [place] [address] Rachele Fenton, COMPUTER SYSTEMS ENGINEER.SHAGGER [address] [place] [address] f/u Neurology Headache [facility] Comment on above: f/u Start: 01-29-2024 End: 01-29-2024 Patient encounter procedure [facility] Comment on above: R Sphenoid Wing Meningioma Start: 01-21-2024 End: 01-21-2024 ambulatory 01/21/2024 2:30 PM EDT [facility] Brain Tumor [place] [address] [place] [address] Laron Lou DO, PhD [address] [facility] [address] [place] [address] Check up for headaches [facility] Brain Tumor [place] Comment on above: Check up for headaches Start: 09-14-2023 Behavioral Health Screening Behavioral Health Screening [facility] Start: 09-14-2023 Depression Assessment Depression Assessment [facility] Start: 05-15-2023 Covid-19 Vaccine ( season) Covid-19 Vaccine () [facility] Start: 05-15-2023 Influenza vaccination [facility] Start: 2022 COLOGUARD (FIT-DNA) COLOGUARD (FIT-DNA) [facility] Start: 2022 Colonoscopy COLONOSCOPY [facility] Start: 2022 COLORECTAL CANCER SCREENING COLORECTAL CANCER SCREENING [facility] Start: [address] COLONOGRAPHY [facility] Start: 2022 FECAL OCCULT BLOOD FECAL OCCULT BLOOD [facility] Start: 2022 Lipid 1996 panel - Serum or Plasma Lipid Screening [facility] Start: 2022 Lipid panel Lipid Screening [facility] Start: 2022 LIPID SCREEN LIPID SCREEN [facility] Start: 2022 Screening for malignant neoplasm of colon [facility] Start: 2022 SIGMOIDOSCOPY SIGMOIDOSCOPY [facility] Start: 09-14-2022 DEPRESSION ASSESSMENT DEPRESSION ASSESSMENT [facility] Start: 05-06-2022 Plain X-ray of right wrist XR wrist RT min 3V* [facility] Start: 05-06-2022 End: 05-06-2022 Patient encounter procedure Departed [facility] Start: 05-01-2022 End: 05-01-2022 Patient encounter procedure Departed [facility] [place] Start: 03-01-2022 Adult depression screening assessment DEPRESSION SCREENING [facility] Start: 07-04-2021 Urine microalbumin profile DTaP,Tdap,Td Vaccine (1 - Tdap) [facility] Start: 03-21-2021 COVID-19 VACCINE (3 - Booster for Pfizer series) COVID-19 VACCINE (3 - Booster for Pfizer series) [facility] Start: 03-21-2021 COVID-19 VACCINE (3 - Pfizer series) COVID-19 VACCINE (3 - Pfizer series) [facility] Start: 02-21-2021 COVID-19 VACCINE (3 - Pfizer risk 4-dose series) COVID-19 VACCINE (3 - Pfizer risk 4-dose series) [facility] Start: 02-21-2021 COVID-19 VACCINE (3 - Pfizer risk series) COVID-19 VACCINE (3 - Pfizer risk series) [facility] Start: 2017 Mammography [facility] Start: 2017 Screening for malignant neoplasm of breast [facility] Start: 2007 HPV TESTING HPV TESTING [facility] Start: 2007 Screening for malignant neoplasm of cervix [facility] Start: 1998 PAP TESTING PAP TESTING [facility] Start: 1998 Screening for malignant neoplasm of cervix [facility] Start: 1996 Hepatitis B Vaccine (1 of 3 - 19+ 3-dose series) Hepatitis B Vaccine (1 of 3 - 19+ 3-dose series) [facility] Start: 1996 Pneumococcal vaccination Pneumococcal Vaccine (1 of 2 - PCV) [facility] Start: 1996 SHINGRIX VACCINE (1 of 2) SHINGRIX VACCINE (1 of 2) [facility] Start: 1996 Urine microalbumin profile [facility] Start: 1995 Annual PCP Team Chronic Disease Visit Annual PCP Team Chronic Disease Visit [facility] Start: 1995 Anxiety Screening Anxiety Screening [facility] Start: 1995 Depression Screening Depression Screening [facility] Start: 1995 Hepatitis B surface antibody level LDL Cholesterol [facility] Start: 1987 Diabetic foot examination Diabetic Foot Exam [facility] Start: 1987 Glaucoma screening Dilated Retinal Exam [facility] Start: 1987 Hepatitis B screening Urine Albumin:Creatinine Ratio [facility] Start: 1983 PNEUMOCOCCAL (1 - PCV) PNEUMOCOCCAL (1 - PCV) [facility] Start: 1982 Hemoglobin A1c measurement HbA1C [facility] Start: 1977 HEPATITIS B (1 of 3 - 3-dose series) HEPATITIS B (1 of 3 - 3-dose series) [facility] Start: 1977 Hepatitis B Vaccine (1 of 3 - 3-dose series) Hepatitis B Vaccine (1 of 3 - 3-dose series) [facility] Start: 1977 Screening for malignant neoplasm of colon [facility] End: 09-06-2025 Alanine aminotransferase [Enzymatic activity/volume] in Serum or Plasma ALANINE AMINOTRANSFERASE / SGPT Lab Routine Inflammatory arthritis Every 3 months for 4 Occurrences starting 09/09/2024 until 09/06/2025 [facility] Comment on above: Every 3 months for 4 Occurrences startin g 09/09/2024 until 09/06/2025 End: 10-10-2025 Alanine aminotransferase [Enzymatic activity/volume] in Serum or Plasma ALANINE AMINOTRANSFERASE / SGPT Lab Routine Encounter for medication monitoring Every 3 months for 4 Occurrences starting 10/10/2024 until 10/10/2025 [facility] Comment on above: Every 3 months for 4 Occurrences startin g 10/10/2024 until 10/10/2025 End: 09-06-2025 Aspartate aminotransferase [Enzymatic activity/volume] in Serum or Plasma ASPARTATE AMINOTRANSFERASE/SGOT Lab Routine Inflammatory arthritis Every 3 months for 4 Occurrences starting 09/09/2024 until 09/06/2025 [facility] Work Phone: Comment on above: Every 3 months for 4 Occurrences startin g 09/09/2024 until 09/06/2025 End: 10-10-2025 Aspartate aminotransferase [Enzymatic activity/volume] in Serum or Plasma ASPARTATE AMINOTRANSFERASE/SGOT Lab Routine Encounter for medication monitoring Every 3 months for 4 Occurrences starting 10/10/2024 until 10/10/2025 [facility] Work Phone: Comment on above: Every 3 months for 4 Occurrences startin g 10/10/2024 until 10/10/2025 Bacteria identified in Urine by Culture Urine Culture [facility] End: 09-06-2025 C reactive protein [Mass/volume] in Serum or Plasma C-REACTIVE PROTEIN Lab Routine Inflammatory arthritis Every 3 months for 4 Occurrences starting 09/09/2024 until 09/06/2025 [facility] Comment on above: Every 3 months for 4 Occurrences startin g 09/09/2024 until 09/06/2025 End: 10-10-2025 C reactive protein [Mass/volume] in Serum or Plasma C-REACTIVE PROTEIN Lab Routine Encounter for medication monitoring Every 3 months for 4 Occurrences starting 10/10/2024 until 10/10/2025 [facility] Comment on above: Every 3 months for 4 Occurrences startin g 10/10/2024 until 10/10/2025 End: 09-06-2025 CBC panel - Blood by Automated count COMPLETE BLOOD COUNT Lab Routine Inflammatory arthritis Every 3 months for 4 Occurrences starting 09/09/2024 until 09/06/2025 [facility] Comment on above: Every 3 months for 4 Occurrences startin g 09/09/2024 until 09/06/2025 End: 10-10-2025 CBC panel - Blood by Automated count COMPLETE BLOOD COUNT Lab Routine Encounter for medication monitoring Every 3 months for 4 Occurrences starting 10/10/2024 until 10/10/2025 [facility] Comment on above: Every 3 months for 4 Occurrences startin g 10/10/2024 until 10/10/2025 End: 09-06-2025 Erythrocyte sedimentation rate SEDIMENTATION RATE, WESTERGREN Lab Routine Inflammatory arthritis Every 3 months for 4 Occurrences starting 09/09/2024 until 09/06/2025 [facility] Comment on above: Every 3 months for 4 Occurrences startin g 09/09/2024 until 09/06/2025 End: 10-10-2025 Erythrocyte sedimentation rate SEDIMENTATION RATE, WESTERGREN Lab Routine Encounter for medication monitoring Every 3 months for 4 Occurrences starting 10/10/2024 until 10/10/2025 [facility] Comment on above: Every 3 months for 4 Occurrences startin g 10/10/2024 until 10/10/2025 Insulin [Units/volum e] in Serum or Plasma [facility] End: 04-01-2026 MR Brain WO and W contrast IV MRI BRAIN WO/W IVCON Radiology Routine Benign neoplasm of meninges (HCC) 1 Occurrences starting 03/02/2025 until 04/01/2026 [facility] Work Phone: Comment on above: 1 Occurrences starting 03/02/2025 until 04/01/2026 MR Skull base WO and W contrast IV MRI SKULL BASE WO/W IVCON Radiology Routine Benign neoplasm of meninges (HCC) 01/29/2024 1:56 PM EDT [facility] Work Phone: [facility] Immunizations Immunization Date Immunization Notes Care Provider Huseyin montague 06-29-2023 influenza virus vaccine, unspecified formulation [facility] 2 Work Phone: [facility] 06-18-2022 Influenza, injectabl e, Madin [place] Canine Kidney, preservative free, quadrivalent Estevan Polanco NP Work Phone: [facility] 06-18-2022 influenza virus vaccine, unspecified formulation Fahad Corey MD Work Phone: [facility] 07-12-2021 influenza, injectabl e, quadrivalent, preservative free Estevan Polanco [employer] Work Phone: [facility] 07-03-2021 tetanus and diphther ia toxoids, adsorbed, preservative free, for adult use (5 Lf of tetanus toxoid and 2 Lf of diphtheria toxoid) Estevan Polanco [employer] Work Phone: [facility] 05-15-2021 Kenalog -40 mg Beti Kear dwayne Other [employer] Other 04-10-2021 Kenalog -40 mg Beti Estivenar dwayne Other [employer] Other 01-24-2021 COVID-19 mRNA, Comirnaty (Pfizer) MD Sammie Gonzalez Work Phone: [facility] 01-02-2021 COVID-19 mRNA Comirnatpiedad (Pfizer) MD Sammie Gonzalez Work Phone: [facility] 11-15-2020 Kenalog -40 mg Beti Neva rice Other [employer] Other 07-04-2020 Influenza, injectabl e, Madin [place] Canine Kidney, preservative free, quadrivalent Estevan Polanco [employer] Work Phone: [facility] 03-08-2020 Gel-Syn Beti Kearne y Other [employer] Other 03-01-2020 Gel-Syn Beti Kearne y Other [employer] Other 02-16-2020 Gel-Syn Beti Kearne y Other [employer] Other 01-26-2020 Kenalog -40 mg Beti Kear dwayne Other [employer] Other 02-02-2019 hepatitis A vaccine, adult dosage Estevan Polanco [employer] Work Phone: [facility] 08-11-2017 Theraputic Injection Robert Bowles Other [employer] Other 08-04-2017 Theraputic Injection Jennife r Jelena Other [employer] Other 07-07-2017 Kenalog -40 mg Beti Kear dwayne Other [employer] Other 06-23-2017 influenza virus vaccine, unspecified formulation Estevan Polanco [employer] Work Phone: [facility] 04-09-2017 Kenalog -40 mg Beti Kear dwayne Other [employer] Other 12-11-2016 Kenalog -40 mg Beti Kear dwayne Other [employer] Other 09-29-2014 influenza, injectabl e, quadrivalent, contains preservative Beti Jelena Other [facility] 08-30-2014 influenza, injectabl e, quadrivalent, preservative free Estevan Polanco [employer] Work Phone: [facility] Healthcare Payers Date Payer Category Payer Self-pay [id number] 2024 Unknown [id number] 2024 Medicare (Managed Care) [id number]. [id number] 2024 Medicare [id number] 2024 Medicaid [id number] 2023 Medicaid [id number] 2023 Unknown 2009 Medicare MEDICARE MEDICAR E A AND B [id number] 2009-Present [phone] [place] [id number] Medicare [id number] 2009 Medicare MEDICARE MEDICAR E A AND B [id number] 2009-Present [phone] [place] [id number] Medicare [id number] 1977 Unknown [id number] 2.16.840.1.930929.3.579.2.5 93 1977 Unknown [id number] 2.16.840.1.632877.3.579.2.5 93 1977 Unknown [id number] 2.16.840.1.875180.3.579.2.1 259 1977 Unknown [id number] 2.16.840.1.428212.3.579.2.1 259 1977 Unknown [id number] 2.16.840.1.213169.3.579.2.1 259 1977 Unknown [id number] 2.16.840.1.111389.3.579.2.7 16 1977 Unknown [id number] 2.16.840.1.228359.3.579.2.1 96 1977 Unknown [id number] 2.16.840.1.353140.3.579.2.1 1977 Unknown [id number] 2.16.840.1.164860.3.579.2.1 1977 Unknown [id number] 2.16.840.1.761808.3.579.2.1 1977 Unknown [id number] 2.16.840.1.093350.3.579.2.1 1977 Unknown [id number] 2.16.840.1.530206.3.579.2.1 1959 Medicare [id number] 2.16.840.1.544130.19 1959 Unknown [id number] Unknown [id number] 2.16.840.1.613717.3.579.2.5 31 Unknown [id number] 2.16.840.1.094522.3.579.2.5 31 Unknown [id number] 2.16.840.1.753819.3.579.2.5 31 Unknown [id number] 2.16.840.1.658313.3.579.2.5 31 Unknown [id number] 2.16.840.1.495463.3.579.2.5 31 Unknown [id number] 2.16.840.1.580065.3.579.2.5 31 Unknown [id number] 2.16.840.1.935628.3.579.2.5 31 Unknown [id number] 2.16.840.1.760765.3.579.2.5 31 Social History Date Type Detail Facility Start: 03-04-2021 End: 02-14-2025 Tobacco smoking status NHIS Ex-smoker [facility] Start: 03-04-2021 End: 02-14-2025 Tobacco use and exposure Smokeless tobacco non-user [facility] Start: 1975 Sex Assigned At Female [facility] Start: 01-10-2022 End: 01-20-2022 Exposure to SARS-CoV-2 (event) Not sure [facility] Start: 09-22-2022 End: 06-01-2023 Sex Assigned At [facility] History of tobacco use Current smoker [facility] Start: 09-22-2022 End: 06-01-2023 History of Social function [facility] Start: 08-15-2012 Adult Depression Screening Assessment 1 [facility] Start: 04-16-2018 Gender identity Identifies as female gender (finding) [facility] Start: 02-25-2021 Sexual orientation Heterosexual (finding) [facility] Start: 06-01-2023 End: 03-06-2025 Alcohol intake Current drinker of alcohol (finding) [facility] History of tobacco use Cigarette Smoker [facility] Start: 03-25-2023 Tobacco Comment >10 years since last smoked [facility] Start: 03-25-2023 Alcohol Comment caffeine: stackers [facility] Start: 1975 Sex assigned at Not on file [facility] Start: 09-17-2024 End: 02-11-2025 Sex Female (finding) [facility] Start: 02-14-2025 Tobacco Comment Started 1994. Quit 2009. 1 ppd [facility] Start: 02-14-2025 Alcohol Comment 3-4 drinks on occasion [facility] Start: 03-13-2025 Tobacco smoking status NHIS Unknown if ever smoked [facility] Start: 03-13-2025 Alcohol intake Alcohol Use Details [facility] Medical Equipment Procedure Code Equipment Code Equipment Origin al Text Equipment Identifier Dates Start: 03-10-2023 Patch Duramatrix -Onlay Plus Collagen 2x2in Dural Regeneration Membrane - [id number] Start: 02-20-2025 Plate Bone 8 Hol e Profile - [id number] Start: 02-20-2025 Plate 3d Large B ox Low Profile Titanium Bone 2x2 Hole 1.5mm Screw - [id number] Start: 02-20-2025 Plate Low Profil e Titanium 12mm Bone 2 Hole Bar 1.5mm Screw Nonsterile - [id number] Start: 02-20-2025 Cover 10mm Mediu m Titanium [place] Hole Low Profile Tab 1.5mm Screws - [id number] Start: 02-20-2025 Screw Bone Unive rsal Neuro 3 4mm 1.5mm Self Drill Axial Stability Latex - [id number] Start: 02-20-2025 [place] [facility] Axs Neuro Screw Disc Pre-Loaded 1.5mm X 4mm [id number] Start: 02-20-2025 Clinical Notes 03-04-2021 to 04-26-2025 Telephone Encounter - La Nena Waterman LPN - 04/26/2025 9:34 AM EDTTelephone Encounter - La Nena Waterman LPN - 04/26/2025 9:34 AM EDTHRachele acevedo APRN.SHAGGER - 04/12/2025 7:00 AM EDT Note Date & Type Note Facility 04-26-2025 Telephone encounter Note Eye exam was completed and received 12/20/2024. [facility] 04-26-2025 Miscellaneous Notes Eye exam was [...] 365 Days Visit Type Date Time Department [facility] 06/22/2025 2:20 PM [facility] REJ Last Ophthalmology Check for Plaquenil [...] eye exam 12/20/24 documented in this encounter [facility] 04-26-2025 Telephone encounter Note She needs an eye exam if she wants future refills. The following approved medication requests have been transmitted electronically. Requested Prescriptions Signed Prescriptions Disp Refills hydrOXYchloroQUINE (PLAQUENIL) 200 mg tablet 60 tablet 2 Sig: TAKE 1 TABLET BY MOUTH TWICE A DAY Authorizing Provider: ZEINAB WOOD MD [facility] 04-25-2025 Telephone encounter Note Images from [...] 365 Days Visit Type Date Time Department [facility] 06/22/2025 2:20 PM [facility] REJ Last Ophthalmology Check for Plaquenil [...] Lab Orders None Last eye exam 12/20/24 [facility] 04-12-2025 History of Presen t illness Narrative [...] visit. Either the patient or their legal small business sales representative has been informed of the [...] [place] 10 [place] [facility] [place] provided to accommodate tapering schedule. [...] these with the patient: yes Rachele Fenton APRN.SHAGGER HEADACHE SCORES: 02/01/2024 12/30/2024 04/10/2025 Headache Questions [...] soft tissue component identified in the orbit. Drum Tester: GUANACO Transcribe Date/Time: Jan 31 2024 3:33P [...] Service: Virtual Visit 20 minutes Recording using Flowdock software for draft documentation of the visit was discussed with the patient/authorized small business sales representative; all questions welcomed and answered. Patient/authorized small business sales representative agreed to proceed Rachele Fenton APRN.JOSSIE Headache Section [facility] April 12, 2025 documented in this encounter [facility] 04-12-2025 Note HNO ID: [id number] Author: RACHELE FENTON APRN.JOSSIE Service: ? Author [...] visit. Either the patient or their legal small business sales representative has been informed of the [...] Pres[place] 10 mg [place] [facility] [place] provided to accommodate tapering schedule. [...] mouth twice daily. (more content not included)... [facility] 03-29-2025 History of Presen t illness Narrative Images from the original note were not included. SECTION OF SKULL BASE SURGERY MINIMALLY INVASIVE CRANIAL BASE & PITUITARY SURGERY PROGRAM [facility] [place], [facility] TELEMEDICINE FOLLOW-UP VISIT This is a virtual visit. It required patient-provider interaction for the medical decision making as documented below. Kourtney Novak has consented for this telemedicine encounter. I have communicated my name and active licensure. The patient's identity and physical location were verified at the time of this visit. Either the patient or their legal small business sales representative has been informed of the [...] WHO grade 1 documented in this encounter [facility] 03-29-2025 Note HNO ID: [id number] Author: ERIK PINEDA MD Service: ? Author Type: Physician Type: Progress Notes Filed: 03/29/2025 10:48 Note Text: SECTION OF SKULL BASE SURGERY MINIMALLY INVASIVE CRANIAL BASE AND PITUITARY SURGERY PROGRAM [facility] [place], [facility] TELEMEDICINE FOLLOW-UP VISIT This is a virtual visit. It required patient-provider interaction for the medical decision making as documented below. Kourtney Novak has consented for this telemedicine encounter. I have communicated my name and active licensure. The patient's identity and physical location were verified at the time of this visit. Either the patient or their legal small business sales representative has been informed of the [...] 50 mcg tablet (more content not included)... [facility] [facility] Tele[facility] Note Hospital Discharge Summary faxed to Dr. Hoy. Saenz [facility] 03-27-2025 Miscellaneous Notes Hospital Discharge Summary faxed to Dr. Hoy. Saenz documented in this encounter [facility] 03-20-2025 Telephone encounter Note Picture uploaded in [employer] reviewed. Wound is healing appropriately. Will complete the 10 days dose of Bactrim. Prescribed accordingly. [facility] 03-20-2025 Miscellaneous Notes Picture uploaded in [employer] reviewed. Wound is healing appropriately. Will complete the 10 days dose of Bactrim. Prescribed accordingly. documented in this encounter [facility] 03-15-2025 Note HNO ID: [id number] Author: IZABELA PATTON MD Service: ? Author Type: Fellow Type: Progress Notes Filed: 03/15/2025 12:44 Note Text: SECTION OF SKULL BASE SURGERY MINIMALLY INVASIVE CRANIAL BASE AND PITUITARY SURGERY PROGRAM [facility] [place], [facility] CC: Patient Care Team: Sammie Gonzalez [...] changes. PLAN: - Send a picture in [employer] on Thursday. - Bactrim DS x 5 [...] symmetrically and uvul (more content not included)... [facility] 03-15-2025 History of Presen t illness Narrative Images from the original note were not included. SECTION OF SKULL BASE SURGERY MINIMALLY INVASIVE CRANIAL BASE & PITUITARY SURGERY PROGRAM [facility] [place], [facility] CC: Patient Care Team: Sammie Gonzalez [...] changes. PLAN: - Send a picture in [employer] end on Thursday. - Bactrim DS x 5 [...] No Does patient want to see a Well Logger? No (yes to any of above refer patient to schedulers for dietitian appointment) ) Does patient have any new or increased numbness or tingling of extremities? No Is patient interested in fertility information? No Does patient need any prescription refills? No Does patient have an advanced directive in place? No, Patient referred to [facility] documented in this encounter [facility] 03-15-2025 Telephone encounter Note Ordered Bactrim. [facility] 03-15-2025 Miscellaneous Notes Ordered Bactrim. documented in this encounter [facility] 03-15-2025 Note HNO ID: [id number] Author: YULY DO MA Service: ? Author Type: Morgue Keeper Type: Progress Notes Filed: 03/15/2025 12:44 Note Text: Additional intake questions: Has the patient had fever, nausea, vomiting, diarrhea, constipation, fatigue for > 1 week? No Does the patient have a decreased appetite? No Does patient want to see a Well Logger? No (yes to any of above refer patient to schedulers for dietitian appointment) ) Does patient have any new or increased numbness or tingling of extremities? No Is patient interested in fertility information? No Does patient need any prescription refills? No Does patient have an advanced directive in place? No, [facility] referred to [facility] Electronically Signed By: Yuly Do MA [facility] 03-13-2025 Telephone encounter Note Physician: Eliceo Call from pharmacy requesting refill. Please E-Scribe Last OV: 01/06/2025 with Hamdamarie Future OV: Not Scheduled. Requested Prescriptions Pending Prescriptions Disp Refills methocarbamol (ROBAXIN) 500 mg tablet [Pharmacy Med Name: METHOCARBAMOL 500 MG TABLET] 45 tablet 2 Sig: TAKE 1 TABLET BY MOUTH TWICE A DAY NEEDED Pharmacy Name: [facility] 03-13-2025 Miscellaneous Notes Physician: Eliceo Call from pharmacy requesting refill. Please E-Scribe Last OV: 01/06/2025 with Juan Luisdamarie Future OV: Not Scheduled. Requested Prescriptions Pending Prescriptions Disp Refills methocarbamol (ROBAXIN) 500 mg tablet [Pharmacy Med Name: METHOCARBAMOL 500 MG TABLET] 45 tablet 2 Sig: TAKE 1 TABLET BY MOUTH TWICE A DAY NEEDED Pharmacy Name: [facility] documented in this encounter [facility] 03-13-2025 Evaluation note Type assessment Encounter for Depo-Provera contr aception [facility] Work Phone: [phone] Telephone encounter Note* Telephone Encounter - Mario Alberto Phillips RN - 03/08/2025 4:18 PM EDT Images from the original note were not included. [facility]06-25-2025 Miscellaneous Notes* Telephone Encounter - Mario Alberto Phillips RN - 03/08/2025 4:18 PM EDT Images from the original note were not included. [facility] Telephone encounter Note * Telephone Encounter - Zeinab Wood MD - 03/06/2025 12:40 PM EDT The following approved medication requests have been transmitted electronically. Requested Prescriptions Pending Prescriptions Disp Refills DULoxetine (CYMBALTA) 60 mg capsule [Pharmacy Med Name: DULOXETINE HCL DR 60 MG CAP] 90 capsule 2 Sig: TAKE 1 CAPSULE BY MOUTH EVERY DAY Zeinab Wood MD [facility]06-23-2025 Miscellaneous Notes* Telephone Encounter - Zeinab [...] Days Visit Type Date Time Department [facility] 06/22/2025 2:20 PM [facility] REJ Last Ophthalmology Check for Plaquenil [...] meningioma (HCC), Preop testing [facility]25 NoteHNO ID: [id number] Author: MARIO ALBERTO PHILLIPS RN Service: ? [...] request and reach out to her through [employer] with a reply. Mario Alberto Phillips RN, [facility]inator[facility] History of Present illness Narrative* Mario [...] request and reach out to her through [employer] with a reply. Mario Alberto Phillips RN, Veterinary Livestock Inspector * Britton Tamez LPN - 03/06/2025 10:07 AM EDT Additional intake questions: Has the patient had fever, nausea, vomiting, diarrhea, constipation, fatigue for > 1 week? No Does the patient have a decreased appetite? No Does patient want to see a Well Logger? No (yes to any of above refer patient to schedulers for dietitian appointment) ) Does patient have any new or increased numbness or tingling of extremities? No Is patient interested in fertility information? NA Does patient need any prescription refills? No Does patient have an advanced directive in place? Yes, copies are in Epic [facility] Telephone encounter Note * Telephone Encounter [...] Days Visit Type Date Time Department [facility] 06/22/2025 2:20 PM [facility] REJ Last Ophthalmology Check for Plaquenil [...] Assoc. diagnoses: Intracranial meningioma (HCC), Preop testing [facility]06-23-2025 NoteHNO ID: [id number] Author: BRITTON TAMEZ LPN Service: ? Author Type: LICENSED NURSE Type: Progress Notes Filed: 03/06/2025 14:25 Note Text: Additional intake questions: Has the patient had fever, nausea, vomiting, diarrhea, constipation, fatigue for > 1 week? No Does the patient have a decreased appetite? No Does patient want to see a Well Logger? No (yes to any of above refer patient to schedulers for dietitian appointment) ) Does patient have any new or increased numbness or tingling of extremities? No Is patient interested in fertility information? NA Does patient need any prescription refills? No Does patient have an advanced directive in place? Yes, copies are in Epic Electronically Signed By: Britton Tamez LPUC [facility] 03-02-2025 History of Present illness Narrative* Heather Moy APRN.SHAGGER - 03/02/2025 1:00 PM EDT Images from the original note were not included. [facility] [place] [facility] TELE-HEALTH VISIT PROGRESS NOTE This is a virtual visit using [employer] video visit. It required patient-provider interaction for themedical decision making as documented below. I have communicated my name and active licensure. The patient's identity and physical location wereverified at the time of this visit. Either the patient or their legal small business sales representative has been informed of the [...] which included preparing to see the patient, [id number] patient care, completing clinical documentation, obtaining and/or reviewing separately obtained history, performing a medically appropriate examination, counseling and educating the pat ient/family/caregiver, ordering medications, tests, or procedures, communicating with other HCPs (not separately reported), independently interpreting results (not separately reported), communicatingresults to the patient/family/caregiver, and care coordination (not separately reported). Heather Moy APRN.SHAGGER Certified Nurse Practitioner cc: Erik Pineda MD - [facility] HPI: Kourtney Novak is a pleasant is [...] resection. No residual mass or pathologic enhancement. 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 The tumor [...] 2025 10:13 AM Gross examination performed at [facility], [address] [place] [address], [place] [address] Clinical History Pre-op diagnosis: Intracranial meningioma (HCC) [D32.0] Preop testing [Z01.818] Performing Lab Diagnostic interpretation performed at: [facility], [address] [place] [address], [address] [address] CLIA# [id number] Box Icer: Charan Ryan MD Disclaimer Laboratory Developed Test (LDT) Disclaimer: Performance characteristics of immunohistochemical, immunofluorescent, and chromogenic in-situ hybridization tests have been determined by the performing laboratory within [facility]'s [facility] Pathology and Laboratory Medicine Department ([facility], [facility], [facility], [facility], [facility], [facility], or [facility]) in a manner consistent with CLIA requirements. One or more of these tests may not have been cleared or approved by the FDA. [facility] is regulated under CLIA as qualified to perform high- complexity testing. These tests are used for clinical purposes. These should not be regarded asinvestigational or for research. Positive and negative controls stain appropriately. KPS: 90 documented in [facility] encounterA[facility]06-19-2025 NoteHNO ID: [id number] Author: HEATHER MOY APRN.CNP Service: ? Author Type: Nurse Practitioner Type: Progress Notes Filed: 03/02/2025 13:22 Note Text: [facility] [place] [facility] TELE-HEALTH VISIT PROGRESS NOTE This is a virtual visit using [employer] video visit. It required patient-provider interaction for the medical decision making as documented below. I have communicated my name and active licensure. The patient's identity and physical location were verified at the time of this visit. Either the patient or their legal small business sales representative has been informed of the [...] which included preparing to see the patient, [id number] patient care, completing clinical documentation, obtaining and/or reviewing separately obtained history, performing a medically appropriate examination, counseling and educating the patient/family/caregiver, ordering medications, tests, or procedures, communicating with other HCPs (not separately reported), independently interpreting results (not separately reported), communicating results to the patient/family/caregiver, and care coordination (not separately reported). Heather Moy APRN.[facility] Certified Nurse Practitioner cc: Erik Pineda MD - [facility] HPI: Kourtney Novak is a pleasant is [...] Face symmetric with smile (more content not included)...[facility]06-16-[facility] Telephone encounter Note* Telephone Encounter - [...] EVERY DAY Authorizing Provider: ZEINAB WOOD MD [facility]06-16-2025 Miscellaneous Notes* Telephone Encounter - Zeinab [...] Days Visit Type Date Time Department [facility] 06/22/2025 2:20 PM [facility] REJ Last Ophthalmology Check for Plaquenil [...] meningioma (HCC), Preop testing [facility] Telephone encounter Note * Telephone Encounter [...] Wood MD 09/28/2023 Inflammatory arthritis Rheumatology Zeinab oWod MD Upcoming Rheumatology Appointments - Next 365 Days Visit Type Date Time Department [facility] 06/22/2025 2:20 PM [facility] REJ Last Ophthalmology Check for Plaquenil [...] Assoc. diagnoses: Intracranial meningioma (HCC), Preop testing [facility]06-12-2025 Telephone encounter Note* Telephone Encounter - Mario Alberto Phillips RN - 02/23/2025 11:24 AM EDT Images from the original note were not included. 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 Reviewed med list and sent patient a [employer] message for alternating Ibuprofen and Tylenol for headache/pain as needed Confirmed postop appointments Patient was made aware to reach out for questions/ concerns/updates. Mario Alberto Phillips RN, Veterinary Livestock Inspector [facility]06-12-2025 Telephone encounter Note* Telephone Encounter - Mario Alberto Phillips RN - 02/23/2025 11:24 AM EDT General Call Caller : Pt Contact Reason for Call : Pt has question regards oxycodone meds. Patient requesting return call ? Yes [facility]06-12-2025 Miscellaneous Notes* Telephone Encounter - Mario [...] Reviewed med list and sent patient a [employer] message for alternating Ibuprofen and Tylenol for headache/pain as needed Confirmed postop appointments Patient was made aware to reach out for questions/ concerns/updates. Mario Alberto Phillips RN, Veterinary Livestock Inspector * Telephone Encounter - Mario Alberto Phillips [...] return call ? Yes [facility]06[facility] Telephone encounter Note * Telephone Encounter - Kaci Maya - 02/23/2025 9:46 AM EDT General Call Caller : Pt Contact Reason for Call : Pt has question regards oxycodone meds. Patient requesting return call ? Yes [facility]06-11-2025 NoteHNO ID: [id number] Author: DAYANNA CLEMENTE, Mookie Service: Pharmacy Author Type: Network Operations Analyst Type: Plan of Care Filed: 02/22/2025 12:08 Note Text: PHARMACY BEDSIDE DELIVERY SERVICE Patient Name: Kourtney Novak The marked outpatient medications were Filled at: [facility] and delivered to the patient's bedside [...] Dayanna Clemente PAGER: February 22, 2025 10:56 [facility]06-11-2025 NoteHNO ID: [id number] Author: DAYANNA CLEMENTE, ? Service: Pharmacy Author Type: Network Operations Analyst Type: Plan of Care Filed: 02/22/2025 10:56 Note Text: Insurance investigation completed Patient has active prescription insurance: Yes - Patient's insurance is in-network with F Insurance loaded into [employer]: Yes Test claim was completed to verify insurance is active: Successful Any questions, please reach out to your medication patient access.[facility]06-10-2025 NoteHNO ID: [id number] Author: HERSON OZUNA RN Service: Nursing Author Type: Registered Nurse Type: Progress Notes Filed: 02/21/2025 20:22 Note Text: At 16:15 PM, Received report from [facility]. At 17:00 PM, Patient transferred to the nursing division.[facility]06-10-2025 NoteHNO ID: [id number] Author: JOVANNY CHRISTENSEN RN Service: Care Management Author Type: Registered Nurse Type: Care Mgt Initial Assessment Filed: 02/21/2025 15:16 Note Text: CARE MANAGEMENT: ASSESSMENT AND DISCHARGE PLAN SERVICE DATE: February 21, 2025 SERVICE TIME: 3:14 PM PCP: Sammie Gonzalez MD Primary Contact: Extended Emergency Contact Information Primary Emergency Contact: ParveenChristiano Address: [address] [place] [address] Mobile Relation: Son Secondary Emergency Contact: Laith Saini Address: [address] [place] [address] Mobile Relation: Son Admission Status: Inpatient Insurance Provider: [employer] HMO Discharge Planning requested by: Per Department Practice Potential Transition Plans Home Advance Directives Current Advance Directive: None [place] of Choice Explained: [place] of Choice Given: No Reason Not Given: [...] Novak DATE: February 21, 2025 TIME: 3:14 [facility]06-10-2025 NoteHNO ID: [id number] Author: GLORIA PEÑALOZA PA-C Service: Neurosurgery Author Type: Physician City Designer Type: Progress Notes Filed: 02/21/2025 12:40 Note Text: SERVICE DATE: 02/21/2025 SERVICE TIME: 8:19 AM NEUROSURGERY SKULL BASE INPATIENT PROGRESS NOTE [place] [phone] for questions/concerns about this patient from 3PM [...] Non-tender NEUROLOGY: Motor: UE BICEPS TRICEPS DELTS Entry Level Electrician HI R 5/5 5/5 5/5 5/5 5/5 [...] 18 Gauge 1 day Peripheral 02/20/25 1245 [facility] Short Right Hand 18 Gauge <1 day Drain Duration Indwelling Urinary Catheter 02/20/25 1301 [facility] Nieves 16 Fr <1 day LABS: Na: Recent Labs 02/21/25 0437 02/20/25 1143 NA 138 137 1. Out of bed and ambulating: No Needs PT or OT Evaluation: No 2. Central line present? No 3. Continued need for urinary catheter? D/C Urinary Catheter 4. Nutrition: PO- Yes. 5. Restraints No. 6. 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 Author [...] February 20, 2025 TIME: 2:16 PM CSN: [id number] NoteHNO ID: [id number] Author: CLARISA GARZA MD Service: ? Author [...] February 20, 2025 TIME: 2:00 PM CSN: [id number] [facility] Telephone encounter Note* Telephone Encounter - Mario Alberto Phillips RN - 02/17/2025 3:53 PM EDT Spoke with the patient - we discusses signing the consent after she checks in for her surgery on Thursday02/20/25. [facility]06-06-2025 Miscellaneous Notes* Telephone Encounter - Mario Alberto Phillips RN - 02/17/2025 3:53 PM EDT Spoke with the patient - we discusses signing the consent after she checks in for her surgery on Thursday02/20/25. [facility] in [facility] encounter[facility]06[facility] Telephone encounter Note * Telephone Encounter - Mario Alberto Phillips RN - 02/17/2025 3:49 PM EDT Called the patient for pre-op instructions. Questions pertaining to hospital stay and after hospital discharge instructions were addressed. Shewas made aware to touch base after she gets discharged home for review of hospital discharge instructions and confirming postop follow up appts. Mario Alberto hPillips RN, Veterinary Livestock Inspector [facility]06-06-2025 Miscellaneous Notes* Telephone Encounter - Mario Alberto Phillips RN - 02/17/2025 3:49 PM EDT Called the patient for pre-op instructions. Questions pertaining to hospital stay and after hospital discharge instructions were addressed. Shewas made aware to touch base after she gets discharged home for review of hospital discharge instructions and confirming postop follow up appts. Mario Alberto Phillips RN, Veterinary Livestock Inspector documented in this encounterA[facility]06-04-2025 History of Present illness Narrative* Erik Pineda MD - 02/15/2025 2:30 PM EDT SECTION OF SKULL BASE SURGERY MINIMALLY INVASIVE CRANIAL BASE & PITUITARY SURGERY PROGRAM [facility] [place], [facility] TELEMEDICINE FOLLOW-UP VISIT This is a virtual visit. It required patient-provider interaction for the medical decision making as documented below. Kourtney Novak has consented for this telemedicine encounter. I have communicated my name and active licensure. The patient's identity and physical location were verified at the time of this visit. Either the patient or their legal small business sales representative has been informed of the [...] week postoperatively. - Consent form sent via [employer], including consent for blood transfusion if necessary. - Patient understands and agrees with the treatment plan. I spent a total of 30 minutes on the date of the service which included preparing to see the patient, [id number] patient care, completing clinical documentation, performing a [...] tissue mass extending into the of the life trainer or parapharyngeal spaces. The soft tissue planes of the, retropharyngeal, and prevertebral spaces are maintained. The visualized parotid glands are normal in appearance. Nasopharynx/Oropharynx: The nasopharynx and oropharynx are normal in appearance. 12/28/24 OPTH Exam ( see scanned) documented in this encounterA[facility]06-[facility]-2025 NoteHNO ID: [id number] Author: ERIK PINEDA MD Service: ? Author Type: Physician Type: Progress Notes Filed: 02/15/2025 14:59 Note Text: SECTION OF SKULL BASE SURGERY MINIMALLY INVASIVE CRANIAL BASE AND PITUITARY SURGERY PROGRAM [facility] [place], [facility] TELEMEDICINE FOLLOW-UP VISIT This is a virtual visit. It required patient-provider interaction for the medical decision making as documented below. Kourtney Novak has consented for this telemedicine encounter. I have communicated my name and active licensure. The patient's identity and physical location were verified at the time of this visit. Either the patient or their legal small business sales representative has been informed of the [...] week postoperatively. - Consent form sent via [employer], including consent for blood transfusion if necessary. - Patient understands and agrees with the treatment plan. I spent a total of 30 minutes on the date of the service which included preparing to see the patient, [id number] patient care, completing clinical documentation, performing a [...] daily. No current facility-administered (more content not included)...[facility]06-04-2025 Telephone encounter Note* Telephone Encounter - Barbara Rosenthal LPN - 02/15/2025 8:21 AM EDT I called and spoke with patient. Relayed below message; denies questions at this time. Will go to [facility]. Barbara Rosenthal LPN February 15, 2025 8:22 AM [facility]06-04-2025 Miscellaneous Notes* Telephone Encounter - Barbara Rosenthal LPN - 02/15/2025 8:21 AM EDT I called and spoke with patient. Relayed below message; denies questions at this time. Will go to [facility]. Barbara Rosenthal LPN February 15, 2025 8:22 AM * Telephone Encounter - Mehul Martin APRN.CNP - 02/15/2025 8:09 AM EDT Please call patient. Lab did not draw [place], A1C, or BMP. Please have her go to closest [facility] lab tohave them drawn. She can go to [facility] in [place] if that is best for her thank you. Thank you, Mehul Martin APRN.JOSSIE documented in this encounterA[facility]06-[facility]-2025 Telephone encounter Note * Telephone Encounter - Mehul Martin APRN.CNP - 02/15/2025 8:09 AM EDT Please call patient. Lab did not draw [place], A1C, or BMP. Please have her go to [facility] lab tohave them drawn. She can go to [facility] in [place] if that is best for her thank you. Thank you, Mehul Martin APRN.CNP [facility]06-03-2025 History of Present illness Narrative* Jaec Lainez RT(R) - 02/14/2025 9:20 AM EDT [...] PATIENT PRESENTS WITH AN IMPLANTABLE OR ATTACHED ROAD INSPECTOR: No RADIOLOGY DEPARTMENT: MR; Exam(s) Completed: Head: Routine Brain Localization PERIPHERAL IV DATA: Site assessment: Clean,Dry and Intact, Site disposition Discontinued SIGNED BY: RT Alma(Lc) February 14, 2025 9:16 AM documented in this encounterAultman Hospital06-03-2025 NoteHNO ID: [id number] Author: JACE LAINEZ RT(R) Service: ? Author [...] PATIENT PRESENTS WITH AN IMPLANTABLE OR ATTACHED ROAD INSPECTOR: No RADIOLOGY DEPARTMENT: MR; Exam(s) Completed: Head: Routine Brain Localization PERIPHERAL IV DATA: Site assessment: Clean,Dry and Intact, Site disposition Discontinued SIGNED BY: RT Alma(R) February 14, 2025 9:16 [facility]06-03-2025 History and physical note* Mehul Martin APRN.SHAGGER - 02/14/2025 7:40 AM EDT HISTORY AND [...] of breath with the above physical activity. [id number] Score: Age: <65 Sex: female CHF history: No Hypertension history: No Stroke/TIA/thromboembolism history: No Vascular disease history: No Diabetes history: Yes [id number] Score: 2 ARISCAT Score: Age: <=50 Preoperative [...] COVID-19 original vaccine, age 12+ yr, monovalent (ubigrate- [employer] [facility]) 01/02/2021 Imm Admin: COVID-19 original vaccine, age 12+ yr, monovalent (ubigrate- [employer] - [facility]) REVIEW OF SYSTEMS: PAIN ASSESSMENT: General: No weight loss, malaise or fevers. Neuro: See HPI +Fibromyalgia Respiratory: Negative for Asthma, Dyspnea, Home O2 +COPD +MAREK Cardiovascular: Negative for Recent IN, Angina, Chest Pain, PVD, DVT/PE +HLD GI: Negative for Nausea, Vomiting, Abdominal pain +GERD : Negative for dysuria, incontinence, hematuria, and hesitancy MUSIC SPECIALIST: Negative for abnormal vaginal bleeding, abnormal vaginal [...] 386 QTC Calculation (Bazett) 436 Calculated P Novi 36 Calculated R Novi 47 Calculated T Novi 47 Impression NORMAL SINUS RHYTHM NORMAL ECG Instructions Given to Patient: Instructions located in the after visit summary. Patient given verbal and written preop instructions and voices comprehension and compliance. SIGNATURE: Mehul Martin APRN.SHAGGER PATIENT NAME: Kourtney Novak DATE: 02/14/2025 TIME: 7:58 AM [facility]06-03-[facility]25 History and physical note* Mehul Martin [...] of breath with the above physical activity. [id number] Score: Age: <65 Sex: female CHF history: No Hypertension history: No Stroke/TIA/thromboembolism history: No Vascular disease history: No Diabetes history: Yes [id number] Score: 2 ARISCAT Score: Age: <=50 Preoperative [...] age 12+ yr, monovalent (PFIZER- [facility] - [facility]) 01/02/2021 Imm Admin: COVID-19 original vaccine, age 12+ yr, monovalent (ubigrate- [employer] - [facility]) REVIEW OF SYSTEMS: PAIN ASSESSMENT: General: No weight loss, malaise or fevers. Neuro: See HPI +Fibromyalgia Respiratory: Negative for Asthma, Dyspnea, Home O2 +COPD +MAREK Cardiovascular: Negative for Recent IN, Angina, Chest Pain, PVD, DVT/PE +HLD GI: Negative for Nausea, Vomiting, Abdominal pain +GERD : Negative for dysuria, incontinence, hematuria, and hesitancy MUSIC SPECIALIST: Negative for abnormal vaginal bleeding, abnormal vaginal [...] 386 QTC Calculation (Bazett) 436 Calculated P Novi 36 Calculated R Novi 47 Calculated T Novi 47 Impression NORMAL SINUS RHYTHM NORMAL ECG Instructions Given to Patient: Instructions located in the after visit summary. Patient given verbal and written preop instructions and voices comprehension and compliance. SIGNATURE: Mehul Martin APRN.CNP PATIENT NAME: Kourtney Novak DATE: 02/14/2025 TIME: 7:58 AM documented in this encounterAultman Hospital06-02-2025 Instructions* Patient Instructions* Mehul Martin APRN.CNP - 02/13/2025 11:26 AM EDT PATIENT PREOPERATIVE INSTRUCTIONS You Surgeon has scheduled you for your procedure at this surgery center: [facility] [place] Scheduling Office: [phone] --[address] [place] [address]. Please read below carefully for your personalized [...] SURGERY If you are currently using a afwi-lvp-jvos injectable or oral medication for diabetes or [...] Procedures: - YOU MUST HAVE A RESPONSIBLE BUILDING SPECIALIST TAKE YOU HOME. A HEEL LIFT GOUGER OR CLEARANCE CENTER MANAGER CANNOT BE MADE A RESPONSIBLE BUILDING SPECIALIST. - We recommend that a responsible person [...] call the Thursday before. Your surgeon s advertising editor will tell you what time to call the office. - If you have not reached the departmental advertising editor by 5 P.M., call [phone] after 5 P.M. the day before your surgery. Please be aware that emergency situations arise, which may delay or change your surgical time. If this happens, we will notify you as soon as possible and regret any inconvenience. If you already have an Advance Directive, please fax a copy to [phone] or email to for it to be [...] into your chart that day. Mehul Martin APRN.JSOSIE documented in this encounterAultman Hospital05-30-2025 Radiology Diagnostic [facility] [place] [address] Ultrasound Report Signed Patient: Kourtney Novak MR#: [id number] : 1975 Acct:[id number] Age/Sex: 49 / F ADM Date: 5 Loc: Room: Type: [facility] Attending Dr: Sammie Gonzalez MD Ordering Provider: [...] Gray M.D. 02/10/2025 4:44 PM Dictation Location: [place] [address] Tech: Vani Olivia Transcribed By: [facility] 02/10/25 164 Dictated By: George Gray DO 02/10/25 1643 Signed By: 02/10/25 1644 [facility]05-15-2025 Telephone encounter Note* Telephone Encounter - Gifty [...] WEEK THEN STOP Pharmacy Name: [facility]05-15-[facility]25 Miscellaneous Notes* Telephone Encounter - Gifty [...] [facility]acy Name: [facility] documented in this encounterAultman Hospital04-25-2025 NoteHNO ID: [id number] Author: RACHELE FENTON APRN.SHAGGER Service: ? Author Type: Nurse Practitioner Type: [...] visit. Either the patient or their legal small business sales representative has been informed of the [...] 15 mg tablet simvastatin (more content not included)...[facility]04-24-2025 NoteHNO ID: [id number] Author: LA NENA WATERMAN LPN Service: ? Author Type: LICENSED NURSE Type: Progress Notes Filed: 01/05/2025 12:51 Note Text: Eye exam for Plaquenil toxicity received from [facility]. Exam date was 12/20/2024. Exam shows no signs of Plaquenil toxicity. Forms sent for scanning.[facility]04-17-2025 Telephone encounter Note* Telephone Encounter - [...] A DAY NEEDED Pharmacy Name: [facility]04-17-[facility]25 Miscellaneous Notes* Telephone Encounter - Gifty [...] Pharmacy Name: [facility] documented in this encounterAultman Hospital04-16-2025 NoteHNO ID: [id number] Author: ZEINAB WOOD MD Service: ? Author [...] extremities. GI: Bowel sound (more content not included)...[facility] 12-28-2024 History of Present illness Narrative* [...] No Swollen Glands: No documented in this encounterAultman Hospital04-15-2025 Evaluation note* Diagnosis Onset Date Resolution Status Admit Date Osteochondrosis of lunate of right wrist acute December 27, 2024 12:51pm Right wrist pain acute December 272024 12:51pm Osteochondrosis of lunate of right wrist acute February 01, 2025 1 :57pm Right wrist pain acute January 1:57pm [facility] Work Phone: 1(512) 133-133404-15-2025 Evaluation note* Diagnosis Onset Date Resolution Status Admit Date Osteochondrosis of lunate of right wrist acute December 27, 2024 12:51pm Right wrist pain acute December 272024 12:51pm Osteochondrosis of lunate of right wrist acute February 01, 2025 1 :57pm Right wrist pain acute January 1:57pm Osteochondrosis of lunate of right wrist acute March 22, 2025 3 :55pm Right wrist pain acute March 3:55pm [facility] Work Phone: 1(483) 743-841903-24-2025 Telephone encounter Note* Telephone Encounter - Mario [...] out for questions/concerns/updates. Mario Alberto Phillips RN, Veterinary Livestock Inspector [facility]03-24-2025 Miscellaneous Notes* Telephone Encounter - Mario [...] out for questions/concerns/updates. Mario Alberto Phillips RN, Veterinary Livestock Inspector * Telephone Encounter - Mario Alberto Phillips RN - 12/05/2024 10:04 AM EDT Left a detailed voice message for the patient requesting a call back to discuss her plan of care & scheduling surgery. Contact info provided. documented in this encounterAultman Hospital03-24-2025 Telephone encounter Note * Telephone Encounter - Mario Alberto Phillips RN - 12/05/2024 10:04 AM EDT Left a detailed voice message for the patient requesting a call back to discuss her plan of care & scheduling surgery. Contact info provided. [facility]02-20-2025 Evaluation note* Diagnosis Onset Date Resolution Status Admit Date Bursitis of left shoulder acute November 03, 2024 9:12am Osteochondrosis of lunate of right wrist acute December 27, 2024 12:51pm Right wrist pain acute December 272024 12:51pm [facility] Work Phone: 1(825) 407-946901-27-2025 Telephone encounter Note* Telephone Encounter - Susy Escamilla LPN - 10/10/2024 4:59 PM EST Faxed new order with updated diagnosis code . sent to [phone]. [facility]01-27-2025 Miscellaneous Notes* Telephone Encounter - Susy Escamilla LPN - 10/10/2024 4:59 PM EST Faxed new order with updated diagnosis code . sent to [phone]. * Telephone Encounter - Susy Escamilla LPN - 10/10/2024 3:27 PM EST Received fax from [facility]. States that diagnosis code M19.9 ( inflammatory arthritis ) does not pass medical necessity for the [address]18 regarding CBC test. They needs a different order to be placed with another diagnosis code. Please fax to Jimbo Whitten at [phone]. Notice sent to scanning . Please route to [facility] nurse for follow up documented in this encounterAultman Hospital01-27-2025 Telephone encounter Note * Telephone Encounter [...] equal 90mg po qd Zeinab Wood MD [facility]01-27-2025 Miscellaneous Notes* Telephone Encounter - Zeinab [...] Visit Type Date Time Department [facility] 12/28/2024 9:20 AM [facility] REJ Last Ophthalmology Check for Plaquenil [...] Instance) Lab Orders None documented in this encounterAultman Hospital01-27-2025 Telephone encounter Note * Telephone Encounter - Susy Escamilla LPN - 10/10/2024 3:27 PM EST Received fax from [facility]. States that diagnosis code M19.9 ( inflammatory arthritis ) does not pass medical necessity for the [address]86 regarding CBC test. They needs a different order to be placed with another diagnosis code. Please fax to Jimbo Whitten at [phone]. Notice sent to scanning . Please route to [facility] nurse for follow up [facility]01-27-2025 Telephone encounter Note* Telephone Encounter - [...] Days Visit Type Date Time Department [facility] MED[facility] 12/28/2024 9:20 AM [facility] REJ Last Ophthalmology Check for Plaquenil [...] Open Future (Single Instance) Lab Orders None [facility]01-14-2025 Evaluation note* Diagnosis Onset Date Resolution Status Admit Date Osteochondrosis of lunate of right wrist acute September 27 2:48pm Right wrist pain acute September 27, 2024 2:48pm Bursitis of left shoulder acute November 03, 2024 9:12am [facility] Work Phone: 1(266) 971-116701-07-2025 Telephone encounter Note* Telephone Encounter - Susy Escamilla LPN - 09/20/2024 5:15 PM EST Lab results received from [facility] . Copy sent to scan, copy sent to provider folder for review. . [facility]01-07-2025 Miscellaneous Notes* Telephone Encounter - Susy Escamilla LPN - 09/20/2024 5:15 PM EST Lab results received from [facility] . Copy sent to scan, copy sent to provider folder for review. . documented in this encounterAultman Hospital01-02-2025 Telephone encounter Note * Telephone Encounter - Susy Escamilla LPN - 09/15/2024 3:42 PM EST Lab orders faxed to [phone]. Patient updated via [employer] [facility]01-02-2025 Miscellaneous Notes* Telephone Encounter - Susy Escamilla LPN - 09/15/2024 3:42 PM EST Lab orders faxed to [phone]. Patient updated via [employer] * Telephone Encounter - Zeinab Wood MD - 09/15/2024 2:04 PM EST Please send lab orders to where patient would like. [facility] call patient to discuss. Zeinab Wood MD documented in this encounterAultman Hospital01-02-2025 Telephone encounter Note * Telephone Encounter - Zeinab Wood MD - 09/15/2024 2:04 PM EST Please send lab orders to where patient would like. [facility] call patient to discuss. Zeinab Wood MD [facility]12-27-2024 Telephone encounter Note* Telephone Encounter - [...] EVERY DAY Authorizing Provider: ZEINAB WOOD MD [facility]12-27-2024 Telephone encounter Note* Telephone Encounter - [...] EVERY DAY Authorizing Provider: ZEINAB WOOD MD [facility]12-27-2024 Miscellaneous Notes* Telephone Encounter - Zeinab [...] advise if labs are appropriate. Route to [facility] Nurse in order to follow up with faxing Lab orders to [facility] [phone] . * Telephone Encounter - Alisha Paniagua [...] Visit Type Date Time Department [facility] 12/28/2024 9:20 AM [facility] REJ Last Ophthalmology Check for Plaquenil [...] Instance) Lab Orders None documented in this encounterAultman Hospital12-24-2024 Telephone encounter Note * Telephone Encounter - Susy Escamilla LPN - 09/06/2024 11:11 AM EST No current labs ordered . Please advise if labs are appropriate. Route to [facility] Nurse in order to follow up with faxing Lab orders to [place] [phone] . [facility]12-19-2024 Telephone encounter Note* Telephone Encounter - Alisha Paniagua RN - 09/01/2024 5:10 PM EST Please monitor for receipt of labs. No labs completed presently. [facility]12-18-2024 Telephone encounter Note* Telephone Encounter - Zeinab Wood MD - 08/31/2024 4:25 PM EST She needs labs before I can give her refill. Labs in epic. Zeinab Wood MD [facility]12-16-2024 Telephone encounter Note* Telephone Encounter - [...] Days Visit Type Date Time Department [facility] 12/28/2024 9:20 AM [facility] REJ Last Ophthalmology Check for Plaquenil [...] Open Future (Single Instance) Lab Orders None [facility]10-30-2024 History of Present illness Narrative* Estevan Polanco, CARGO ROUTER - 07/13/2024 5:30 PM EDT Images from [...] 20 tablet; Refill: 0 documented in this encounterSt. Louis VA Medical [id number] NoteHNO ID: [id number] Author: ZEINAB WOOD MD Service: ? Author [...] recent and remote event (more content not included)...[facility]09-16-2024 History of Present illness Narrative* Zeinab [...] No Swollen Glands: No documented in this encounterAultman Hospital09-12-2024 Telephone encounter Note * Telephone Encounter - Eun Stanford APRN.CNP - 05/26/2024 10:59 AM EDT The following approved medication requests have been transmitted electronically. Requested Prescriptions Signed Prescriptions Disp Refills methocarbamol (ROBAXIN) 500 mg tablet 45 tablet 2 Sig: Take 1 tablet by mouth two times a day as needed. Authorizing Provider: EUN STANFORD APRN.CNP [facility]09-12-2024 Miscellaneous Notes* Telephone Encounter - Eun [...] Pharmacy Name: [facility] documented in this encounterAultman Hospital09-12-2024 Telephone encounter Note * Telephone Encounter [...] day as needed. Pharmacy Name: [facility]07-12-2024 Telephone encounter Note* Telephone Encounter - Zeinab Wood MD - 03/25/2024 12:32 PM EDT The following approved medication requests have been transmitted electronically. Requested Prescriptions Pending Prescriptions Disp Refills predniSONE (DELTASONE) 5 mg tablet [Pharmacy Med Name: prednisone 5 mg tablet] 60 tablet 3 Sig: TAKE 1 TO 2 TABLETS BY MOUTH EVERY DAY Zeinab Wood MD [facility]07-12-2024 Miscellaneous Notes* Telephone Encounter - Zeinab [...] 365 Days Visit Type Date Time Department [facility] 05/30/2024 9:40 AM [facility] REJ Last Ophthalmology Check for Plaquenil [...] (HCC), Preop testing TYPE AND SCREEN,30 DAY [[id number]] 02/03/24 05/04/24 02/03/24 Auth. provider: Erik Pineda MD Assoc. diagnoses: Intracranial meningioma (HCC), Preop testing documented in this encounterAultman Hospital07-12-2024 Telephone encounter Note * Telephone Encounter [...] Days Visit Type Date Time Department [facility] 05/30/2024 9:40 AM [facility] REJ Last Ophthalmology Check for Plaquenil [...] (HCC), Preop testing TYPE AND SCREEN,30 DAY [[id number]] 02/03/24 05/04/24 02/03/24 Auth. provider: Erik Pineda MD Assoc. diagnoses: Intracranial meningioma (HCC), Preop testing [facility]07-10-2024 Telephone encounter Note* Telephone Encounter - Emma Vargas - 03/23/2024 2:05 PM EDT Patient last seen 02/05/2024. [facility]07-10-2024 Miscellaneous Notes* Telephone Encounter - Emma Vargas - 03/23/2024 2:05 PM EDT Patient last seen 02/05/2024. documented in this encounterAultman Hospital06-25-2024 Telephone encounter Note * Telephone Encounter - Mario Alberto Phillips RN - 03/08/2024 2:39 PM EDT ADDENDUM: March 08, 2024 2:39 PM Distance Health Visit on 02/02/2024 including the details for the patient's surgery was faxed to Moira DONOVAN ( [facility]) . Mario Alberto Phillips RN, Veterinary Livestock Inspector [facility]06-25-2024 Miscellaneous Notes* Telephone Encounter - Mario Alberto Phillips RN - 03/08/2024 2:39 PM EDT ADDENDUM: March 08, 2024 2:39 PM Distance Health Visit on 02/02/2024 including the details for the patient's surgery was faxed to Moira DONOVAN ( [facility]) . Mario Alberto Phillips RN, Veterinary Livestock Inspector * Telephone Encounter - Mario Alberto Phillips RN - 03/08/2024 2:17 PM EDT Spoke with nurse Pizarro. We discussed that the patient's epidural steroid injection on 03/14/2024 for her neck pain (C7/T1) isfar out from her surgery for the craniotomy with Dr Erik Pineda (04/04/24). Mario Alberto Phillips RN, Veterinary Livestock Inspector * Telephone Encounter - Brain Ruth - 03/08/2024 1:46 PM EDT General Call Caller : Moira harrison at [facility] Contact Reason for Call : Nurse would like to confirm that pt is allowed to receive steroid injection priorto surgery-80mg of kenalog Patient requesting return call ? Yes documented in this encounterAultman Hospital06-25-2024 Telephone encounter Note * Telephone Encounter - Mario Alberto Phillips RN - 03/08/2024 2:17 PM EDT Spoke with nurse Pizarro. We discussed that the patient's epidural steroid injection on 03/14/2024 for her neck pain (C7/T1) isfar out from her surgery for the craniotomy with Dr Erik Pineda (04/04/24). Mario Alberto Shidiac RN, Veterinary Livestock Inspector [facility]06-25-2024 Telephone encounter Note* Telephone Encounter - Brain Ruth - 03/08/2024 1:46 PM EDT General Call Caller : Moira Ortiz nurse at [facility] Contact Reason for Call : Nurse would like to confirm that pt is allowed to receive steroid injection priorto surgery-80mg of kenalog Patient requesting return call ? Yes [facility]05-29-2024 Telephone encounter Note* Telephone Encounter - Eva Gifty Rea - 02/10/2024 3:12 PM EDT Images from the original note were not included. Prior Authorization for Medications Requested by ([employer], Pharmacy, Patient Call, Fax) : [employer] Pharmacy Name: [facility] Phone # : [phone] Name of Medication : Robaxin Dose : 500 mg Tablet If renewal, auth date expiration: NA Prescribing Provider: Eliceo Last OV: 02/05/2024 with Juan Luisdamarie Insurance Provider : Medicare / [employer]. Is insurance card scanned in, including Rx info? Medicare card scanned - no RX information Insurance Phone : [facility] [place]: NA E-PA? Yes [facility]05-29-2024 Miscellaneous Notes* Telephone Encounter - Eva Gifty Rea - 02/10/2024 3:12 PM EDT Images from the original note were not included. Prior Authorization for Medications Requested by ([employer], Pharmacy, Patient Call, Fax) : [employer] Pharmacy Name: [facility] Phone # : [phone] Name of Medication : Robaxin Dose : 500 mg Tablet If renewal, auth date expiration: NA Prescribing Provider: Eliceo Last OV: 02/05/2024 with Juan Luisdamarie Insurance Provider : Medicare / [employer]. Is insurance card scanned in, including Rx info? Medicare card scanned - no RX information Insurance Phone : [employer] [place]: NA E-PA? Yes documented in this encounterAultman Hospital05-24-2024 History of Present illness Narrative* Rachele Fenton APRN.SHAGGER - 02/05/2024 7:00 AM EDT Images from [...] visit. Either the patient or their legal small business sales representative has been informed of the [...] these with the patient: yes Rachele Fenton APRN.SHAGGER HEADACHE SCORES: 06/19/2023 02/01/2024 Headache Questions ID [...] soft tissue component identified in the orbit. Drum Tester: PSCB Transcribe Date/Time: Jan 31 2024 3:33P [...] 30 minutes Rachele Fenton APRN.JOSSIE Headache Section [facility] February 05, 2024 documented in this encounterAultman Hospital05-21-2024 History of Present illness Narrative* Alexandria Bartholomew MD - 02/02/2024 7:36 PM EDT Images from the original note were not included. SECTION OF SKULL BASE SURGERY MINIMALLY INVASIVE CRANIAL BASE & PITUITARY SURGERY PROGRAM [facility] [place], [facility] CC: Patient Care Team: Sammie Gonzalez [...] which included preparing to see the patient, [id number] patient care, completing clinical documentation, performing a [...] sphenoid wing without significant change since 05/06/2023. Drum Tester: PSCB Transcribe Date/Time: Jan 31 2024 5:10P Dictated by : WESTLEY IYER MD This examination was interpreted and the report reviewed and electronically signed by: WESTLEY IYER MD on Jan 31 2024 5:28PM EST Results-Findings * * *Final Report* * * DATE OF EXAM: Jan 29 2024 1:56PM [facility] 0319 - MRI SKULL BASE WO/W [...] tissue mass extending into the of the life trainer or parapharyngeal spaces. The soft tissue planes of the, retropharyngeal, and prevertebral spaces are maintained. The visualized parotid glands are normal in appearance. Nasopharynx/Oropharynx: The nasopharynx and oropharynx are normal in appearance. Result History documented in this encounterAultman Hospital05-21-2024 Telephone encounter Note * Telephone Encounter - Mario Alberto Phillips RN - 02/02/2024 10:23 AM EDT Called the patient confirming virtual appointment today at [address] Alexandria Bartholomew ( Skull base fellow from Dr Pineda team). [facility]05-21-2024 Miscellaneous Notes* Telephone Encounter - Mario Alberto Phillips RN - 02/02/2024 10:23 AM EDT Called the patient confirming virtual appointment today at [address] Alexandria Bartholomew ( Skull base fellow from Dr Pineda team). documented in this encounterAultman Hospital05-20-2024 Telephone encounter Note * Telephone Encounter - Jumana Zapien RN - 02/01/2024 10:39 AM EDT Pharmacy requesting refill via [email or web address]. Last OV: 06/26/2023 Future OV: 02/05/2024 with Rachele Fenton APRN.SHAGGER Last prescribed: 06/26/2023 Requested Prescriptions Pending Prescriptions Disp Refills tiZANidine (ZANAFLEX) 4 mg tablet [Pharmacy Med Name: tizanidine 4 mg tablet] 60 tablet 3 Sig: take 1 tablet by mouth every 8 hours as needed [facility]05-20-2024 Miscellaneous Notes* Telephone Encounter - Jumana Zapien RN - 02/01/2024 10:39 AM EDT Pharmacy requesting refill via [employer]. Last OV: 06/26/2023 Future OV: 02/05/2024 with Rachele Fenton APRN.SHAGGER Last prescribed: 06/26/2023 Requested Prescriptions Pending Prescriptions Disp Refills tiZANidine (ZANAFLEX) 4 mg tablet [Pharmacy Med Name: tizanidine 4 mg tablet] 60 tablet 3 Sig: take 1 tablet by mouth every 8 hours as needed documented in this encounterAult[facility]05-17-2024 NoteHNO ID: [id number] Author: KOFI LAKE CT Service: Radiology Author [...] PATIENT PRESENTS WITH AN IMPLANTABLE OR ATTACHED ROAD INSPECTOR: No RADIOLOGY DEPARTMENT: CT; Exam(s) Completed: Brain STERO PERIPHERAL IV DATA: Not applicable SIGNED BY: KAYLEEN Sharma January 29, 2024 12:53 [facility]05-17-2024 NoteHNO ID: [id number] Author: AILYN NEUMANN RT(R) Service: ? Author [...] PATIENT PRESENTS WITH AN IMPLANTABLE OR ATTACHED ROAD INSPECTOR: No ALLERGIES: Reviewed and unchanged CONTRAST ALLERGY: NO. EXAM: MRI - CONTRAST TYPE: GROUP II PERIPHERAL IV DATA: Ambulatory: A peripheral IV was started in the Left antecubital site with a Angio cath: 22 gauge. RADIOLOGY DEPARTMENT: MR; Exam(s) Completed: Head: Routine Brain SIGNATURE: Ailyn Neumann RDMS, RVT- Sheila ([facility]) PATIENT NAME: Kourtney Novak DATE: January 29, 2024 TIME: 1:06 [facility]05-17-2024 History of Present illness Narrative* Kofi [...] PATIENT PRESENTS WITH AN IMPLANTABLE OR ATTACHED ROAD INSPECTOR: No RADIOLOGY DEPARTMENT: CT; Exam(s) Completed: Brain STERO PERIPHERAL IV DATA: Not applicable SIGNED BY: KAYLEEN Sharma January 29, 2024 12:53 PM documented in this encounterAultman Hospital05-17-2024 History of Present illness Narrative* Ailyn [...] PATIENT PRESENTS WITH AN IMPLANTABLE OR ATTACHED ROAD INSPECTOR: No ALLERGIES: Reviewed and unchanged CONTRAST ALLERGY: [...] 2024 TIME: 1:06 PM documented in this encounterAultman Hospital05-15-2024 Telephone encounter Note * Telephone Encounter - Zeinab Wood MD - 01/27/2024 3:29 PM EDT The following approved medication requests have been transmitted electronically. Requested Prescriptions Pending Prescriptions Disp Refills etodolac (LODINE) 400 mg tablet 60 tablet 3 Sig: One tab po bid prn Zeinab Wood MD [facility]05-15-[facility]24 Miscellaneous Notes* Telephone Encounter - Zeinab [...] 365 Days Visit Type Date Time Department [facility] 05/30/2024 9:40 AM [facility] REJ Last Ophthalmology Check for Plaquenil [...] Instance) Lab Orders None documented in this encounterAultman Hospital05-15-2024 Telephone encounter Note * Telephone Encounter [...] 365 Days Visit Type Date Time Department [facility] 05/30/2024 9:40 AM [facility] REJ Last Ophthalmology Check for Plaquenil [...] Open Future (Single Instance) Lab Orders None [facility]-07[facility] Telephone encounter Note* Telephone Encounter - [...] discussion and consent. Both appointments were confirmed. [facility]-07-[facility]24 Miscellaneous Notes* Telephone Encounter - Mario [...] the patient's home. Mario Alberto Phillips RN, Veterinary Livestock Inspector documented in this encounterAultman Hospital05-07-2024 Telephone encounter Note * Telephone Encounter - Mario Alberto Phillips RN - 01/19/2024 9:30 AM EDT Spoke with Ms Kourtney Novak today confirming surgery on 04/11/[address] Erik Pineda. Right middle sphenoid wing Preoperative appointments will be scheduled ~ 2 weeks prior to surgery date at a [facility] facility closer to the patient's home. Mario Alberto Phillips RN, Veterinary Livestock Inspector [facility]04-26-[facility]24 Telephone encounter Note* Telephone Encounter - Rohit Khan MA - 01/08/2024 3:14 PM EDT Lab results received from [facility]. Placed in dr Wood folder for review,copy sent to scanning. [facility]04-26-[facility]24 Miscellaneous Notes* Telephone Encounter - Rohit Khan MA - 01/08/2024 3:14 PM EDT Lab results received from [facility]. Placed in dr Wood foldbetty for review,copy sent to scanning. documented in this encounterAultman Hospital04-23-2024 Telephone encounter Note * Telephone Encounter - Mario Alberto Phillips RN - 01/05/2024 1:04 PM EDT Spoke with Ms. Kourtney Johnson Kishore today confirming surgery on 03/28/[address] Erik Pineda. Preoperative appointments to be scheduled at a [facility] facility near the patient's home. [facility] Miscellaneous Notes* Telephone Encounter - Mario Alberto Phillips RN - 01/05/2024 1:04 PM EDT Spoke with Ms. Kourtney Johnson Tingsoraida today confirming surgery on Thu03/28/[address] Erik Pineda. Preoperative appointments to be scheduled at a [facility] facility near the patient's home. documented in this encounterAultman Hospital04-22-2024 Telephone encounter Note * Telephone Encounter - Michelle Thompson MA - 01/04/2024 4:17 PM EDT Orders faxed. Confirmation received. [facility]-22-[facility]24 Miscellaneous Notes* Telephone Encounter - Michelle Thompson MA - 01/04/2024 4:17 PM EDT Orders faxed. Confirmation received. * Telephone Encounter - Michelle Thompson MA - 01/04/2024 2:43 PM EDT Printed labs. Sent msg to pt to clarify which [facility] Lab to fax to. Labs/Fax sheet in Michelle'slime green folder. Please fax once clarification is received. * Telephone Encounter - Zeinab Wood MD - 01/04/2024 2:03 PM EDT Labs are ordered, please print and fax per patient request. Zeinab Wood MD * Telephone Encounter - Verenice Ga RN - 01/04/2024 1:45 PM EDT Patient calling Needs 4/19/24 Lab Orders in [facility] please (pended) Also requesting to FAX 01/01/24 Lab Orders to [facility] She will send their FAX # in My Chart documented in this encounterAultman Hospital04-22-2024 Telephone encounter Note * Telephone Encounter - Michelle Thompson MA - 01/04/2024 2:43 PM EDT Printed labs. Sent msg to pt to clarify which [facility] Lab to fax to. Labs/Fax sheet in Michelle'slime green folder. Please fax once clarification is received. [facility]-22-[facility] Telephone encounter Note* Telephone Encounter - Zeinab Wood MD - 01/04/2024 2:03 PM EDT Labs are ordered, please print and fax per patient request. Zeinab Wood MD [facility]04-22-[facility]24 Telephone encounter Note* Telephone Encounter - Verenice Ga RN - 01/04/2024 1:45 PM EDT Patient calling Needs 01/01/24 Lab Orders in [facility] please (pended) Also requesting to FAX 01/01/24 Lab Orders to [facility] She will send their FAX # in My Chart [facility]03-20-[facility]24 Miscellaneous Notes* Telephone Encounter - Tory [...] if patient had any question please call [phone]. My Chart Message also sent. * Telephone [...] 365 Days Visit Type Date Time Department [facility] 05/30/2024 9:40 AM [facility] REJ Last Ophthalmology Check for Plaquenil [...] Instance) Lab Orders None documented in this encounterAultman Hospital02-29-2024 Miscellaneous Notes* Telephone Encounter - Zeinab [...] Days Visit Type Date Time Department [facility] 05/30/2024 9:40 AM [facility] RE[facility] Last Ophthalmology Check for Plaquenil [...] Instance) Lab Orders None documented in this encounterAultman Hospital02-28-2024 Miscellaneous Notes* Telephone Encounter - Zeinab [...] Visit Type Date Time Department [facility] 05/30/2024 9:40 AM [facility] Last Ophthalmology Check for Plaquenil (Hydroxychloroquine) Last [...] Instance) Lab Orders None documented in this encounterAultman Hospital02-28-2024 Miscellaneous Notes* Telephone Encounter - Mario Alberto Phillips RN - 11/11/2023 11:37 AM EST Spoke with Ms.Mandie Alex Novak today following up on the [employer] message from 10/08/2023. She sent a message about having symptoms of blurry vision and was advised to schedule an appointment with ophthalmology. Today the patient stated that the blurry vision was 1 incident and that she did not have any visionchanges since. She was made aware to send an update or call for any questions or concerns. Mario Alberto Phillips RN, Veterinary Livestock Inspector documented in this encounterAultman Hospital02-27-2024 Miscellaneous Notes* Telephone Encounter - Nathaly [...] Visit Type Date Time Department [facility] 05/30/2024 9:40 AM [facility] RE[facility] Last Ophthalmology Check for Plaquenil [...] Instance) Lab Orders None documented in this encounterAultman Hospital10-23-2023 Miscellaneous Notes* Telephone Encounter - Mario [...] the preoperative appointments. Mario Alberto Phillips RN, Veterinary Livestock Inspector * Telephone Encounter - Justine Pagan - 07/02/2023 3:04 PM EDT General Call Caller : Pt Contact Reason for Call : Pt would like to go forward w scheduling surgery. However, she would like surgeryto be scheduled in March 2024, pt would like to discuss further Patient requesting return call ? Yes documented in this encounterAultman Hospital10-23-2023 Miscellaneous Notes* Telephone Encounter - Mario [...] the preoperative appointments. Mario Alberto Phillips RN, Veterinary Livestock Inspector documented in this [facility]10-17-2023 Instructions* Patient Instructions* Heather Moy APRN.CNP - [...] (due back Apr 2024). documented in this encounterAultman Hospital10-17-2023 Nurse Note* Yuly Do Ma - 06/30/2023 10:52 AM EDT Additional intake questions: Has the patient had fever, nausea, vomiting, diarrhea, constipation, fatigue for > 1 week? No Does the patient have a decreased appetite? No Does patient want to see a Well Logger? No (yes to any of above refer patient to schedulers for dietitian appointment) ) Does patient have any new or increased numbness or tingling of extremities? No Is patient interested in fertility information? No Does patient need any prescription refills? No Does patient have an advanced directive in place? No, Patient referred to [facility] documented in this encounterAultman Hospital10-17-2023 History of Present illness Narrative* Erik Pineda MD - 06/30/2023 10:49 AM EDT Images from the original note were not included. SECTION OF SKULL BASE SURGERY MINIMALLY INVASIVE CRANIAL BASE & PITUITARY SURGERY PROGRAM [facility] [place], [facility] CC: Patient Care Team: Sammie Gonzalez MD as PCP - General (Family Medicine) Laron Lou DO - [facility] ASSESSMENT: In summary, Kourtney Novak is a [...] and follow-up via virtual visit. Heather Moy APRN.SHAGGER I have reviewed the progess note obtained [...] which included preparing to see the patient, [id number] patient care, completing clinical documentation, performing a [...] to the prior exam. documented in this encounterAultman Hospital10-13-2023 Instructions* Patient Instructions* Fahad Corey MD [...] 26, 2023 5:39 PM documented in this encounterAultman Hospital10-13-2023 History of Present illness Narrative* Fahad Corey MD - 06/26/2023 5:06 PM EDT [facility] NEW EVALUATION June 26, 2023 5:00 PM I have communicated my name and active licensure. The patient's identity and physical location wereverified at the time of this visit. Either the patient or their legal small business sales representative has been informed of the [...] 26, 2023 5:36 PM documented in this encounterAultman Hospital08-30-2023 Miscellaneous Notes* Telephone Encounter - Moira Goodrich APRN.SHAGGER - 05/13/2023 1:13 PM EDT Time Frame: Next available Provider: Carmine (possible GKRS) Referring: self Please instruct patient to hand carry/ upload images prior to appt Images also requested via Electronically Dx: Multiple meningiomas with interval growth Multiple meningiomas with interval growth since 2015. MRI done for dizziness. [facility] [place] [address] [place] [address] MRI Report Signed Patient: Kourtney Novak MR#: [id number] : 1975 Acct:[id number] Age/Sex: 47 / F ADM Date: 05/06/23 Loc: Room: Type: [facility] Attending Dr: Sammie Gonzalez MD Copies to: [...] frontal subcortical white matter. documented in this encounterAultman Hospital07-31-2023 Miscellaneous Notes* Telephone Encounter - Zeinab [...] 07/04/2021 Pain in joint, multiple sites Rheumatology Zeinba Wood MD Upcoming Rheumatology Appointments - Next 365 Days Visit Type Date Time Department [facility] 09/28/2023 3:00 PM [facility] REJ Last Ophthalmology Check for Plaquenil [...] Instance) Lab Orders None documented in this encounterAultman Hospital07-31-2023 Miscellaneous Notes* Telephone Encounter - Zeinab [...] 365 Days Visit Type Date Time Department [facility] 09/28/2023 3:00 PM [facility] REJ Last Ophthalmology Check for Plaquenil [...] Instance) Lab Orders None documented in this encounterAultman Hospital07-18-2023 Evaluation note* Encounter Date Diagnosis Assessment [...] labs fro m Dr. Gonzalez regarding diabetes [employer] Other 06-26-2023 Miscellaneous Notes* Telephone Encounter - Tory Thomas LPN - 03/09/2023 11:55 AM EDT Refill to soon refilled 01/19/2023 30 capsules with 3 refilles documented in this encounterAultman Hospital05-08-2023 Miscellaneous Notes* Telephone Encounter - Zeinab [...] Days Visit Type Date Time Department [facility] 06/26/2023 10:40 AM [facility] REJ Last Ophthalmology Check for Plaquenil [...] Instance) Lab Orders None documented in this encounterAultman Hospital04-05-2023 Evaluation note* Encounter Date Diagnosis Assessment Notes Treatment Notes Treatment Clinical Notes Dec, Osteochondrosis of lunate of right wrist (ICD-10 - 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 May repeat ulnar wrist cortisone injection when needed. Patient instructed on the use of Voltaren Gel in the meantime Dec, Right wrist pain (ICD-10 - M25.531) Dec, Other specified postprocedural states (ICD-10 - Z98.890) [employer] Other 03-30-2023 Miscellaneous Notes* Addendum Note - [...] qd Zeinab Wood MD documented in this encounterAultman Hospital01-16-2023 Miscellaneous Notes* Telephone Encounter - Zeinab [...] check out. Thank you. documented in this encounterAultman Hospital01-16-2023 History of Present illness Narrative* Zeinab [...] No Swollen Glands: No documented in this encounterAultman Hospital01-11-2023 Evaluation note* Encounter Date Diagnosis Assessment Notes Treatment Notes Treatment Clinical Notes Sep, Osteochondrosis of lunate of right wrist (ICD-10 - M92.211) Sep, Right wrist pain (ICD-10 - M25.531) Right ulnar wrist joint/TFCC injected with cortisone under sterile technique, patient tolerated well Sep, Other specified postprocedural states (ICD-10 - Z98.890) [employer] Other 11-22-2022 Evaluation note* Encounter Date Diagnosis Assessment Notes Treatment Notes Treatment Clinical Notes Jul, Osteochondrosis of lunate of right wrist (ICD-10 - 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 Decrease to 81 mg Aspirin once per day x 3 months then begin to wean off. Jul, Other specified postprocedural states (ICD-10 - Z98.890) [employer] Other 11-03-2022 Evaluation note* Encounter Date Diagnosis [...] pain of right shoulder (ICD-10 - M25.511) [employer] Other 10-12-2022 Evaluation note* Encounter Date Diagnosis [...] pain of left shoulder (ICD-10 - M25.512) [employer] Other 07-18-2022 Evaluation note* Encounter Date Diagnosis [...] pain of right shoulder (ICD-10 - M25.511) [employer] Other 05-16-2022 Evaluation note* Encounter Date Diagnosis [...] will order an MRI for futher review. [employer] Other 05-13-2022 Evaluation note* Encounter Date Diagnosis Assessment Notes Treatment Notes Treatment Clinical Notes January, Osteochondrosis of lunate of right wrist (ICD-10 - M92.211) January, Right wrist pain (ICD-10 - M25.531) Right ulnar wrist injected with cortisone under sterile technique, patient tolerated well January, Other specified postprocedural states (ICD-10 - Z98.890) [employer] Other 05-09-2022 Evaluation note* Encounter Date Diagnosis [...] oral prednisone as prescribed by Neha ANDERSON. [employer] Other 05-09-2022 History of Present illness Narrative* [...] -none Zeinab Wood MD documented in this encounterAultman Hospital04-12-2022 Evaluation note* Encounter Date Diagnosis Assessment [...] Other specified postprocedural states (ICD-10 - Z98.890) [employer] Other 03-21-2022 Evaluation note* Encounter Date Diagnosis [...] pain of right shoulder (ICD-10 - M25.511) [employer] Other 03-09-2022 Evaluation note* Encounter Date Diagnosis Assessment Notes Treatment Notes Treatment Clinical Notes Nov, Osteochondrosis of lunate of right wrist (ICD-10 - M92.211) Patient instructed on gentle ROM exercises. Continue Aspirin. Prescription given for edema glove Nov, Other specified postprocedural states (ICD-10 - Z98.890) [employer] Other 01-25-2022 Evaluation note* Encounter Date Diagnosis Assessment Notes Treatment Notes Treatment Clinical Notes Sep, Osteochondrosis of lunate of right wrist (ICD-10 - M92.211) Patient will proceed with surgery on the right wrist. Risks and benefits of procedure explained to patient; patient verbalizes understanding. [employer] Other 12-15-2021 Evaluation note* Encounter Date Diagnosis Assessment Notes Treatment Notes Treatment Clinical Notes Aug, Osteochondrosis of lunate of right wrist (ICD-10 - M92.211) Right wrist injected with cortisone under sterile technique, patient tolerated well. Patient would like to proceed with surgical treatment in October [employer] Other 11-29-2021 Evaluation note* Encounter Date Diagnosis Assessment Notes Treatment Notes Treatment Clinical Notes Jul, Carpal tunnel syndrome of right wrist (ICD-10 - G56.01) [employer] Other 10-05-2021 Evaluation note* Encounter Date Diagnosis [...] brace as needed for pain and support [employer] Other 09-22-2021 Evaluation note* Encounter Date Diagnosis [...] of right supraspinatus tendon (ICD-10 - M75.101) [facility] [employer] Other 06-21-2021 NoteHNO ID: [id number] Author: Hu Blankenship Service: Radiology Author Type: Mailroom Courier Type: Progress Notes Filed: 03/04/2021 1:11 PM [...] Blankenship March 04, 2021 1:10 [facility] note* Clinical Note Date No Information [facility] Work Phone: Discharge summary* Clinical Note Date No Information [facility] Work Phone: Evaluation note* Diagnosis Inflammatory arthritis- Primary Unspecified inflammatory polyarthropathy Myalgia Mylagia and myositis, unspecified documented in this encounter [facility] Hospital[facility] noteNo [facility] [employer] Other Evaluation noteNo assessment information [facility] Work Phone: Evaluation note* Diagnosis Inflammatory arthritis- Primary Unspecified inflammatory polyarthropathy Myalgia Mylagia and myositis, unspecified Fibromyalgia Mylagia and myositis, unspecified documented in this encounter [facility]* Diagnosis Medication overuse headache- Primary Drug induced headache, not elsewhere classified Brain mass Unspecified condition of brain Meningioma (HCC) Benign neoplasm of cerebral meninges Chronic daily headache Headache documented [facility] encounter [facility]* Diagnosis Intracranial meningioma (HCC)- Primary Benign neoplasm of cerebral meninges [facility]* Diagnosis Onset Date Resolution Status Osteochondrosis of lunate of right wrist acute Right wrist pain acute [facility] Work Phone: Evaluation note* Diagnosis 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) Benign neoplasm of cerebral meninges [facility]* Diagnosis Benign neoplasm of meninges (HCC) Benign neoplasm of cerebral meninges documented [facility] this encounter [facility]* Diagnosis Chronic daily headache Headache documented in this encounter [facility]* Diagnosis Intracranial meningioma (HCC)- Primary Benign neoplasm of cerebral meninges [facility]* Diagnosis Meningioma (HCC)- Primary Benign neoplasm of cerebral meninges Chronic daily headache Headache Intracranial meningioma (HCC) Benign neoplasm of cerebral meninges Preop testing Preoperative examination, unspecified [facility]* Diagnosis Onset Date Resolution Status Osteochondrosis of lunate of right wrist acute Right wrist pain acute Acute pain of right shoulder acute Biceps tendonitis acute [facility] Work Phone: Evaluation note* Diagnosis Onset Date Resolution Status Acute pain of right shoulder acute Biceps tendonitis acute Osteochondrosis of lunate of right wrist acute Right wrist pain acute [facility] Work Phone: Evaluation note* Diagnosis Inflammatory arthritis- Primary Unspecified inflammatory polyarthropathy Fibromyalgia Mylagia and myositis, unspecified Medication monitoring encounter Encounter for therapeutic drug monitoring documented [facility] this encounter [facility]* Diagnosis Tooth infection- Primary Acute apical periodontitis of pulpal origin [facility] Diagnosis Inflammatory arthritis- Primary Unspecified inflammatory polyarthropathy [facility]* Diagnosis Onset Date Resolution Status Admit Date Osteochondrosis of lunate of right wrist acute September 27 2:48pm Right wrist pain acute September 27, 2024 2:48pm [facility] Work Phone: Evaluation note* Diagnosis Encounter for medication monitoring- Primary Encounter for therapeutic drug monitoring documented in this encounter [facility] note* Diagnosis Fibromyalgia Mylagia and myositis, unspecified documented in this encounter [facility] note* Diagnosis Inflammatory arthritis- Primary Unspecified inflammatory polyarthropathy Fibromyalgia Mylagia and myositis, unspecified Encounter for medication monitoring Encounter for therapeutic drug monitoring documented in this encounter [facility] note* Diagnosis Chronic daily headache Headache documented in this encounter [facility] note* Diagnosis Chronic daily headache Headache Intracranial meningioma (HCC) Benign neoplasm of cerebral meninges Preop testing Preoperative examination, unspecified documented in this encounter [facility] note* Diagnosis Pre-op evaluation- Primary Preoperative [...] Preoperative examination, unspecified documented in this encounter [facility] note* Diagnosis Pre-op evaluation- Primary Preoperative [...] Preoperative examination, unspecified [facility]* Diagnosis Pre-op evaluation- Primary Preoperative examination, [...] by [facility] rheumatology documented [facility]* Diagnosis Meningioma (HCC)- Primary Benign [...] Unspecified inflammatory polyarthropathy [facility]* Diagnosis Meningioma (HCC)- Primary Benign neoplasm of cerebral meninges Intracranial meningioma (HCC) Benign neoplasm of cerebral meninges Preop testing Preoperative examination, unspecified Chronic daily headache Headache 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) COPD (chronic obstructive pulmonary disease) ([facility]) Chronic airway obstruction, not elsewhere classified Diabetes mellitus ([facility]) Type II or unspecified type [...] of cerebral meninges documented in this encounter [facility] [facility] Diagnosis Meningioma (HCC)- Primary Benign neoplasm [...] and myositis, unspecified [facility] M[facility] (HCC)- Primary Benign [...] following unspecified surgery [facility] Diagnosis Meningioma (HCC)- Primary Benign [...] daily headache [facility]ache [facility] Diagnosis Meningioma (HCC)- Primary Benign neoplasm of cerebral meninges Intracranial meningioma (HCC) Benign neoplasm of cerebral meninges Preop testing Preoperative examination, unspecified Chronic daily headache Headache 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) COPD (chronic obstructive pulmonary disease) ([facility]) Chronic airway obstruction, not elsewhere classified Diabetes mellitus ([facility]) Type II or unspecified type [...] Chronic obstructive pulmonary disease, unspecified COPD type ([facility]) Depression, unspecified depression type Type [...] (BMI) of 40.0 to 44.9 in adult ([facility]) Inflammatory arthritis Unspecified inflammatory polyarthropathy S/P craniotomy- Primary Other postprocedural status [facility] Diagnosis Meningioma (HCC)- Primary Benign neoplasm [...] (BMI) of 40.0 to 44.9 in adult ([facility]) Pre-op evaluation- Primary Preoperative examination, [...] (BMI) of 40.0 to 44.9 in adult ([facility]) Inflammatory arthritis Unspecified inflammatory polyarthropathy Intracranial meningioma (HCC)- Primary Benign neoplasm of cerebral meninges Postprocedural state Other postprocedural status Dizziness and giddiness [facility] Diagnosis Meningioma (HCC)- Primary Benign [...] (BMI) of 40.0 to 44.9 in adult ([facility]) Pre-op evaluation- Primary Preoperative examination, unspecified Anxiety Anxiety state, unspecified Chronic obstructive pulmonary disease, unspecified COPD type ([facility]) Depression, unspecified depression type Type 2 diabetes mellitus without complication, without long-term current use of insulin ([facility]) Mixed hyperlipidemia Fibromyalgia Mylagia and myositis, unspecified Intracranial meningioma ([facility]) Benign neoplasm of cerebral meninges Preop testing Preoperative examination, unspecified MAREK (obstructive sleep apnea) Obstructive sleep apnea (adult) (pediatric) Gastroesophageal reflux disease, unspecified whether esophagitis present Hypothyroidism, unspecified type Class 3 severe obesity due to excess calories with serious comorbidity and body mass index (BMI) of 40.0 to 44.9 in adult ([facility]) Inflammatory arthritis Unspecified inflammatory polyarthropathy Meningioma ([facility])- Primary Benign neoplasm of cerebral meninges Chronic daily headache Headache [facility] Clinical Note Date No Information [facility] Work Phone: [facility] general Narrative - Reported* Type Description Date Medical History GERD Medical History gastroparesis Medical History bipolar Medical History DM II Surgical History carpal tunnel Surgical History cystectomy-left breast Surgical History right neuroplasty, ulnar nerve at elbow 08/2020 Hospitalization History see above Hospitalization History [facility] Other [facility] Narrative - Reported* Type Description Date Medical History GERD Medical History gastroparesis Medical History bipolar Medical History DM II Medical History COPD Surgical History carpal tunnel Surgical History cystectomy-left breast Surgical History right neuroplasty, ulnar nerve at elbow 08/2020 Surgical History appendectomy 09/2021 Hospitalization History see above Hospitalization History [facility] Other [facility] general Narrative - Reported* Type Description Date Medical History GERD Medical History gastroparesis Medical History bipolar Medical History DM II Medical History COPD Surgical History carpal tunnel Surgical History cystectomy-left breast Surgical History right neuroplasty, ulnar nerve at elbow 08/2020 Surgical History appendectomy 09/2021 Surgical History right wrist PIN/core decompress ion Hospitalization History see above Hospitalization History [facility] Other [facility] general Narrative - Reported* Type Description Date Medical History GERD Medical History gastroparesis Medical History bipolar Medical History DM II Medical History COPD Surgical History carpal tunnel Surgical History cystectomy-left breast Surgical History right neuroplasty, ulnar nerve at elbow 08/2020 Surgical History appendectomy 09/2021 Surgical History right wrist PIN/core decompress ion Surgical History cubital tunnel Hospitalization History see above Hospitalization History COPD [employer] Other History of Past illness Narrative* Condition Effective Dates (start - stop) O utcome No Information [facility] Work Phone: History of Present illness Narrative* Encounter Date Complaint History Of Prese nt Illness No Information [facility] Work Phone: Instructions* Date Instruction Additional Infor mation No Information [facility] Work Phone: Progress note* Clinical Note Date No Information [facility] Work Phone: Reason for referral (narrative)No reason for referral information [facility] Work Phone: Reason for referral (narrative)* Reason For Referral No Information [facility] Work Phone: Reason for visit Narrative* MRI/CT (Routine) - Closed Specialty Diagnoses / Procedures Referred By Tati t Referred To Contact [facility] Diagnoses Intracranial meningioma (HCC) Preop testing Procedures MRI BRAIN WO/W IVCON MRI BRAIN BRAIN STEM W/O W/CONTRAST MATERIAL Erik Pineda MD [id number] [address] Phone: tel: fax: [facility] [place] [id number] Referral ID Status Reason Start Date Expiration Date V isits Requested Visits Authorized [id number] Closed Auto-Generate d Referral 02/10/2025 09/13/2025 1 1 [facility] Narrative - Reported* System Pos/Neg Findings No Information [facility] Work Phone: Summary Purpose Family History Relationship [...] in left shoulder November 03, 2024 8:26am [employer] [facility] NX November 03 9:12am [...] in left shoulder November 03, 2024 8:26am [employer] NX November 03 9:12am d50.9 December 13, 2024 3:07 pm Chief Complaint Admit Date M25.512 - Pain in left shoulder November 03, 2024 8:26am [employer] [facility] PA[facility] NX November 03 9:12am [...] section and content) DATE CREATED AUTHOR 03/10/2018 [facility] DATE CREATED AUTHOR AUTHOR'S ORGANIZ ATION 03/05/2021 [facility] DATE CREATED AUTHOR AUTHOR'S ORGANIZ ATION 10/13/2022 [facility] DATE CREATED AUTHOR AUTHOR'S ORGANIZ ATION 02/01/2024 [facility] DATE CREATED AUTHOR AUTHOR'S ORGANIZ ATION 07/15/2024 [facility] DATE CREATED AUTHOR AUTHOR'S ORGANIZ ATION 02/21/2025 [facility] DATE CREATED AUTHOR AUTHOR'S ORGANIZ ATION 03/26/2025 [facility] DATE CREATED AUTHOR AUTHOR'S ORGANIZ ATION 04/13/2025 [facility] DATE CREATED AUTHOR AUTHOR'S ORGANIZ ATION 05/04/2025 [facility] Source Comments (unrecognize d section and content) In the event this informatio n is protected by the Federal Confidentiality of Alcohol and Drug Abuse Patient Records regulations: The Federal rules restrict any use of the information to criminally investigate or prosecute any alcohol or drug abuse patient.[facility] the event this information is protected by the Federal Confidentiality of Alcohol and Drug Abuse Patient Records regulations: The Federal rules restrict any use of the information to criminally investigate or prosecute any alcohol or drug abuse patient.[facility]In the event this information is protected by the Federal Confidentiality of Alcohol and Drug Abuse Patient Records regulations: The Federal rules restrict any use of the information to criminally investigate or prosecute any alcohol or drug abuse patient.[facility] HospitalIn the event this information is protected by the Federal Confidentiality of Alcohol and Drug Abuse Patient Records regulations: The Federal rules restrict any use of the information to criminally investigate or prosecute any alcohol or drug abuse patient.[facility] HospitalIn the event this information is protected by the Federal Confidentiality of Alcohol and Drug Abuse Patient Records regulations: The Federal rules restrict any use of the information to criminally investigate or prosecute any alcohol or drug abuse patient.[facility] HospitalIn the event this information is protected by the Federal Confidentiality of Alcohol and Drug Abuse Patient Records regulations: The Federal rules restrict any use of the information to criminally investigate or prosecute any alcohol or drug abuse patient.[facility] HospitalIn the event this information is protected by the Federal Confidentiality of Alcohol and Drug Abuse Patient Records regulations: The Federal rules restrict any use of the information to criminally investigate or prosecute any alcohol or drug abuse patient.[facility] HospitalIn the event this information is protected by the Federal Confidentiality of Alcohol and Drug Abuse Patient Records regulations: The Federal rules restrict any use of the information to criminally investigate or prosecute any alcohol or drug abuse patient.[facility] HospitalIn the event this information is protected by the Federal Confidentiality of Alcohol and Drug Abuse Patient Records regulations: The Federal rules restrict any use of the information to criminally investigate or prosecute any alcohol or drug abuse patient.[facility] HospitalIn the event this information is protected by the Federal Confidentiality of Alcohol and Drug Abuse Patient Records regulations: The Federal rules restrict any use of the information to criminally investigate or prosecute any alcohol or drug abuse patient.[facility] HospitalIn the event this information is protected by the Federal Confidentiality of Alcohol and Drug Abuse Patient Records regulations: The Federal rules restrict any use of the information to criminally investigate or prosecute any alcohol or drug abuse patient.[facility] HospitalIn the event this information is protected by the Federal Confidentiality of Alcohol and Drug Abuse Patient Records regulations: The Federal rules restrict any use of the information to criminally investigate or prosecute any alcohol or drug abuse patient.[facility] HospitalIn the event this information is protected by the Federal Confidentiality of Alcohol and Drug Abuse Patient Records regulations: The Federal rules restrict any use of the information to criminally investigate or prosecute any alcohol or drug abuse patient.[facility] HospitalIn the event this information is protected by the Federal Confidentiality of Alcohol and Drug Abuse Patient Records regulations: The Federal rules restrict any use of the information to criminally investigate or prosecute any alcohol or drug abuse patient.[facility] HospitalIn the event this information is protected by the Federal Confidentiality of Alcohol and Drug Abuse Patient Records regulations: The Federal rules restrict any use of the information to criminally investigate or prosecute any alcohol or drug abuse patient.[facility] HospitalIn the event this information is protected by the Federal Confidentiality of Alcohol and Drug Abuse Patient Records regulations: The Federal rules restrict any use of the information to criminally investigate or prosecute any alcohol or drug abuse patient.[facility] HospitalIn the event this information is protected by the Federal Confidentiality of Alcohol and Drug Abuse Patient Records regulations: The Federal rules restrict any use of the information to criminally investigate or prosecute any alcohol or drug abuse patient.[facility] the event this information is protected by the Federal Confidentiality of Alcohol and Drug Abuse Patient Records regulations: The Federal rules restrict any use of the information to criminally investigate or prosecute any alcohol or drug abuse patient.[facility] HospitalIn the event this information is protected by the Federal Confidentiality of Alcohol and Drug Abuse Patient Records regulations: The Federal rules restrict any use of the information to criminally investigate or prosecute any alcohol or drug abuse patient.[facility] HospitalIn the event this information is protected [...] or prosecute any alcohol or drug abuse patient.[facility] HospitalIn the event this information is protected by the Federal Confidentiality of Alcohol and Drug Abuse Patient Records regulations: The Federal rules restrict any use of the information to criminally investigate or prosecute any alcohol or drug abuse patient.[facility] HospitalIn the event this information is protected by the Federal Confidentiality of Alcohol and Drug Abuse Patient Records regulations: The Federal rules restrict any use of the information to criminally investigate or prosecute any alcohol or drug abuse patient.[facility] HospitalIn the event this information is protected by the Federal Confidentiality of Alcohol and Drug Abuse Patient Records regulations: The Federal rules restrict any use of the information to criminally investigate or prosecute any alcohol or drug abuse patient.[facility] HospitalIn the event this information is protected by the Federal Confidentiality of Alcohol and Drug Abuse Patient Records regulations: The Federal rules restrict any use of the information to criminally investigate or prosecute any alcohol or drug abuse patient.[facility] HospitalIn the event this information is protected by the Federal Confidentiality of Alcohol and Drug Abuse Patient Records regulations: The Federal rules restrict any use of the information to criminally investigate or prosecute any alcohol or drug abuse patient.[facility] HospitalIn the event this information is protected by the Federal Confidentiality of Alcohol and Drug Abuse Patient Records regulations: The Federal rules restrict any use of the information to criminally investigate or prosecute any alcohol or drug abuse patient.[facility] HospitalIn the event this information is protected by the Federal Confidentiality of Alcohol and Drug Abuse Patient Records regulations: The Federal rules restrict any use of the information to criminally investigate or prosecute any alcohol or drug abuse patient.[facility] HospitalIn the event this information is protected by the Federal Confidentiality of Alcohol and Drug Abuse Patient Records regulations: The Federal rules restrict any use of the information to criminally investigate or prosecute any alcohol or drug abuse patient.[facility] HospitalIn the event this information is protected by the Federal Confidentiality of Alcohol and Drug Abuse Patient Records regulations: The Federal rules restrict any use of the information to criminally investigate or prosecute any alcohol or drug abuse patient.[facility] HospitalIn the event this information is protected by the Federal Confidentiality of Alcohol and Drug Abuse Patient Records regulations: The Federal rules restrict any use of the information to criminally investigate or prosecute any alcohol or drug abuse patient.[facility] HospitalIn the event this information is protected by the Federal Confidentiality of Alcohol and Drug Abuse Patient Records regulations: The Federal rules restrict any use of the information to criminally investigate or prosecute any alcohol or drug abuse patient.[facility] HospitalIn the event this information is protected by the Federal Confidentiality of Alcohol and Drug Abuse Patient Records regulations: The Federal rules restrict any use of the information to criminally investigate or prosecute any alcohol or drug abuse patient.[facility] HospitalIn the event this information is protected by the Federal Confidentiality of Alcohol and Drug Abuse Patient Records regulations: The Federal rules restrict any use of the information to criminally investigate or prosecute any alcohol or drug abuse patient.[facility] HospitalIn the event this information is protected by the Federal Confidentiality of Alcohol and Drug Abuse Patient Records regulations: The Federal rules restrict any use of the information to criminally investigate or prosecute any alcohol or drug abuse patient.[facility] HospitalIn the event this information is protected by the Federal Confidentiality of Alcohol and Drug Abuse Patient Records regulations: The Federal rules restrict any use of the information to criminally investigate or prosecute any alcohol or drug abuse patient.[facility] HospitalIn the event this information is protected by the Federal Confidentiality of Alcohol and Drug Abuse Patient Records regulations: The Federal rules restrict any use of the information to criminally investigate or prosecute any alcohol or drug abuse patient.[facility] HospitalIn the event this information is protected by the Federal Confidentiality of Alcohol and Drug Abuse Patient Records regulations: The Federal rules restrict any use of the information to criminally investigate or prosecute any alcohol or drug abuse patient.[facility] HospitalIn the event this information is protected by the Federal Confidentiality of Alcohol and Drug Abuse Patient Records regulations: The Federal rules restrict any use of the information to criminally investigate or prosecute any alcohol or drug abuse patient.[facility] HospitalIn the event this information is protected by the Federal Confidentiality of Alcohol and Drug Abuse Patient Records regulations: The Federal rules restrict any use of the information to criminally investigate or prosecute any alcohol or drug abuse patient.[facility] HospitalIn the event this information is protected by the Federal Confidentiality of Alcohol and Drug Abuse Patient Records regulations: The Federal rules restrict any use of the information to criminally investigate or prosecute any alcohol or drug abuse patient.[facility] HospitalIn the event this information is protected by the Federal Confidentiality of Alcohol and Drug Abuse Patient Records regulations: The Federal rules restrict any use of the information to criminally investigate or prosecute any alcohol or drug abuse patient.[facility] HospitalIn the event this information is protected by the Federal Confidentiality of Alcohol and Drug Abuse Patient Records regulations: The Federal rules restrict any use of the information to criminally investigate or prosecute any alcohol or drug abuse patient.[facility] HospitalIn the event this information is protected by the Federal Confidentiality of Alcohol and Drug Abuse Patient Records regulations: The Federal rules restrict any use of the information to criminally investigate or prosecute any alcohol or drug abuse patient.[facility] HospitalIn the event this information is protected by the Federal Confidentiality of Alcohol and Drug Abuse Patient Records regulations: The Federal rules restrict any use of the information to criminally investigate or prosecute any alcohol or drug abuse patient.[facility] HospitalIn the event this information is protected by the Federal Confidentiality of Alcohol and Drug Abuse Patient Records regulations: The Federal rules restrict any use of the information to criminally investigate or prosecute any alcohol or drug abuse patient.[facility] HospitalIn the event this information is protected by the Federal Confidentiality of Alcohol and Drug Abuse Patient Records regulations: The Federal rules restrict any use of the information to criminally investigate or prosecute any alcohol or drug abuse patient.[facility] HospitalIn the event this information is protected by the Federal Confidentiality of Alcohol and Drug Abuse Patient Records regulations: The Federal rules restrict any use of the information to criminally investigate or prosecute any alcohol or drug abuse patient.[facility] HospitalIn the event this information is protected by the Federal Confidentiality of Alcohol and Drug Abuse Patient Records regulations: The Federal rules restrict any use of the information to criminally investigate or prosecute any alcohol or drug abuse patient.[facility] HospitalIn the event this information is protected by the Federal Confidentiality of Alcohol and Drug Abuse Patient Records regulations: The Federal rules restrict any use of the information to criminally investigate or prosecute any alcohol or drug abuse patient.[facility] HospitalIn the event this information is protected by the Federal Confidentiality of Alcohol and Drug Abuse Patient Records regulations: The Federal rules restrict any use of the information to criminally investigate or prosecute any alcohol or drug abuse patient.[facility] HospitalIn the event this information is protected by the Federal Confidentiality of Alcohol and Drug Abuse Patient Records regulations: The Federal rules restrict any use of the information to criminally investigate or prosecute any alcohol or drug abuse patient.[facility] HospitalIn the event this information is protected by the Federal Confidentiality of Alcohol and Drug Abuse Patient Records regulations: The Federal rules restrict any use of the information to criminally investigate or prosecute any alcohol or drug abuse patient.[facility] HospitalIn the event this information is protected by the Federal Confidentiality of Alcohol and Drug Abuse Patient Records regulations: The Federal rules restrict any use of the information to criminally investigate or prosecute any alcohol or drug abuse patient.[facility] HospitalIn the event this information is protected by the Federal Confidentiality of Alcohol and Drug Abuse Patient Records regulations: The Federal rules restrict any use of the information to criminally investigate or prosecute any alcohol or drug abuse patient.[facility] HospitalIn the event this information is protected by the Federal Confidentiality of Alcohol and Drug Abuse Patient Records regulations: The Federal rules restrict any use of the information to criminally investigate or prosecute any alcohol or drug abuse patient.[facility] HospitalIn the event this information is protected by the Federal Confidentiality of Alcohol and Drug Abuse Patient Records regulations: The Federal rules restrict any use of the information to criminally investigate or prosecute any alcohol or drug abuse patient.[facility] HospitalIn the event this information is protected by the Federal Confidentiality of Alcohol and Drug Abuse Patient Records regulations: The Federal rules restrict any use of the information to criminally investigate or prosecute any alcohol or drug abuse patient.[facility] HospitalIn the event this information is protected by the Federal Confidentiality of Alcohol and Drug Abuse Patient Records regulations: The Federal rules restrict any use of the information to criminally investigate or prosecute any alcohol or drug abuse patient.[facility] HospitalIn the event this information is protected by the Federal Confidentiality of Alcohol and Drug Abuse Patient Records regulations: The Federal rules restrict any use of the information to criminally investigate or prosecute any alcohol or drug abuse patient.[facility] HospitalIn the event this information is protected by the Federal Confidentiality of Alcohol and Drug Abuse Patient Records regulations: The Federal rules restrict any use of the information to criminally investigate or prosecute any alcohol or drug abuse patient.[facility] HospitalIn the event this information is protected by the Federal Confidentiality of Alcohol and Drug Abuse Patient Records regulations: The Federal rules restrict any use of the information to criminally investigate or prosecute any alcohol or drug abuse patient.[facility] Hospital[facility] the event this information is protected by the Federal Confidentiality of Alcohol and Drug Abuse Patient Records regulations: The Federal rules restrict any use of the information to criminally investigate or prosecute any alcohol or drug abuse patient.[facility] HospitalIn the event this information is protected by the Federal Confidentiality of Alcohol and Drug Abuse Patient Records regulations: The Federal rules restrict any use of the information to criminally investigate or prosecute any alcohol or drug abuse patient.[facility] HospitalIn the event this information is protected by the Federal Confidentiality of Alcohol and Drug Abuse Patient Records regulations: The Federal rules restrict any use of the information to criminally investigate or prosecute any alcohol or drug abuse patient.[facility] HospitalIn the event this information is protected by the Federal Confidentiality of Alcohol and Drug Abuse Patient Records regulations: The Federal rules restrict any use of the information to criminally investigate or prosecute any alcohol or drug abuse patient.[facility] Reason for Visit (unrecogniz ed section [...] 60-74 MINUTES Laron Lou DO, PhD [address] [facility] [address] [place] [id number] Referral ID Status Reason Start Date Expiration Date V isits Requested Visits Authorized [id number] Closed PCP Requested Referral 06/01/2023 05/31/2024 1 [...] CT GUIDANCE STEREOTACTIC LOCALIZATION Erik Pineda MD [address] [place] [address] Ct Imaging [place] [address] Referral ID Status Reason Start Date Expiration Date V isits Requested Visits Authorized [id number] Closed Auto-Generate d Referral 01/19/2024 02/17/2025 1 1 Specialty Diagnoses / [facility] MR [facility]AG[facility] Diagnoses Benign neoplasm of meninges (HCC) Procedures MRI SKULL BASE WO/W IVCON MRI BRAIN BRAIN STEM W/O W/CONTRAST MATERIAL Erik Pineda MD [address] [facility] [address] Mr Imaging [place] [address] Referral ID Status Reason Start Date Expiration Date V isits Requested Visits Authorized [id number] Closed Auto-Generate d Referral 01/19/2024 02/17/2025 1 [...] 08/28/2024 Reason Comments Results Lab results from [facility] 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 Reason [...] FOR PERIOPERATIVE MEDICINE - PREOPERATIVE OPTIMIZATION OFFICE/OUTPATIENT [facility] 60 MINUTES Erik Pineda MD [address] [place] [address] Phone: tel: fax: Referral ID Status Reason Start Date Expiration Date V isits Requested Visits Authorized [id number] Closed PCP Requested Referral 01/13/2025 01/13/2026 1 [...] Primary Care 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, 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 Relationship Specialty Start Date End Date Sammie Gonzalez MD [address] [place] [address] Referring Family Practice 01/14/21 Team Status: Inactive Member Role Status David Gonzalez MD Primary Care Provider Active Elyssa Gomes MD Attending Provider Active Team Status: Inactive Member Role Status Dates Sammie Gonzalez MD Primary Care Provider Active Gunner Cummings DPM MS Attending Provider Active Boot And Shoe Laborer Relationship Specialty Start Date End Date Sammie Gonzalez MD [address] [place] [address] Referring Family Medicine 01/14/21 Boot And Shoe Laborer Relationship Specialty Start Date End Date Sammie Gonzalez MD [address] [place] [address] Referring Family Medicine 01/14/21 Boot And Shoe Laborer Relationship Specialty Start Date End Date Sammie Gonzalez MD Referring Family Medicine 01/14/21 Boot And Shoe Laborer Relationship Specialty Start Date End Date Sammie Gonzalez MD Referring Family Medicine 01/14/21 Boot And Shoe Laborer Relationship Specialty Start Date End Date Sammie Gonzalez MD Referring Family Medicine 01/14/21 Boot And Shoe Laborer Relationship Specialty Start Date End Date Sammie Gonzalez MD Referring Family Medicine 01/14/21 Boot And Shoe Laborer Relationship Specialty Start Date End Date Sammie Gonzalez MD Referring Family Medicine 01/14/21 Team Status: Inactive Member Role Status Dates Sammie Gonzalez MD Primary Care Provider Active Zeinab Mckinney ([facility]) , COMPUTER SYSTEMS ENGINEER Attending Provider Active Boot And Shoe Laborer Relationship Specialty Start Date End Date Sammie Gonzalez MD [address] [place] [address] PCP - General Family Medicine 05/12/23 Sammie Gonzalez MD Referring Family Medicine 01/14/21 Sammie Gonzalez MD [address] [place] [address] Referring Family Medicine 05/12/23 Boot And Shoe Laborer Relationship Specialty Start Date End Date Sammie Gonzalez MD [address] [place] [facility] [address] PCP - General Family Medicine 05/12/23 Sammie Gonzalez MD Referring Family Medicine 01/14/21 Sammie Gonzalez MD [address] [place] [facility] [address] Referring Family Medicine 05/12/23 Boot And Shoe Laborer Relationship Specialty Start Date End Date Sammie Gonzalez MD [address] [place] [facility] [address] PCP - General Family Medicine 05/12/23 Sammie Gonzalez MD Referring Family Medicine 01/14/21 Sammie Gonzalez MD [address] [place] [facility] [address] Referring Family Medicine 05/12/23 Boot And Shoe Laborer Relationship Specialty Start Date End Date Sammie Gonzalez MD [address] [place] [facility] [address] PCP - General Family Medicine 05/12/23 Sammie Gonzalez MD Referring Family Medicine 01/14/21 Sammie Gonzalez MD [address] [place] [facility] [address] Referring Family Medicine 05/12/23 Boot And Shoe Laborer Relationship Specialty Start Date End Date Sammie Gonzalez MD [address] [place] [facility] [address] PCP - General Family Medicine 05/12/23 Sammie Gonzalez MD Referring Family Medicine 01/14/21 Sammie Gonzalez MD [address] [place] [facility] [address] Referring Family Medicine 05/12/23 Boot And Shoe Laborer Relationship Specialty Start Date End Date Sammie Gonzalez MD [address] [facility] [place] [address] PCP - General Family Medicine 05/12/23 Sammie Gonzalez MD Referring Family Medicine 01/14/21 Sammie Gonzalez MD [address] [facility] [place] [address] Referring Family Medicine 05/12/23 Boot And Shoe Laborer Relationship Specialty Start Date End Date Sammie Gonzalez MD [address] [facility] [address] PCP - General Family Medicine 05/12/23 Sammie Gonzalez MD Referring Family Medicine 01/14/21 Sammie Gonzalez MD [address] [facility] [address] Referring Family Medicine 05/12/23 Boot And Shoe Laborer Relationship Specialty Start Date End Date Sammie Gonzalez MD [address] [facility] [address] PCP - General Family Medicine 05/12/23 Sammie Gonzalez MD Referring Family Medicine 01/14/21 Sammie Gonzalez MD [address] [facility] [place] [address] Referring Family Medicine 05/12/23 Boot And Shoe Laborer Relationship Specialty Start Date End Date Sammie Gonzalez MD [address] [facility] [address] PCP - General Family Medicine 05/12/23 Sammie Gonzalez MD Referring Family Medicine 01/14/21 Sammie Gonzalez MD [address] [facility] [address] Referring Family Medicine 05/12/23 Team Status: Inactive [...] January 08, 2024 End: January 08, 2024 Boot And Shoe Laborer Relationship Specialty Start Date End Date Sammie Gonzalez MD [address] [place] [address] PCP - General Family Medicine 05/12/23 Sammie Gonzalez MD Referring Family Medicine 01/14/21 Sammie Gonzalez MD [address] [place] [address] Referring Family Medicine 05/12/23 Boot And Shoe Laborer Relationship Specialty Start Date End Date Sammie Gonzaelz MD [address] [place] [address] PCP - General Family Medicine 05/12/23 Sammie Gonzalez MD Referring Family Medicine 01/14/21 Sammie Gonzalez MD [address] [place] [address] Referring Family Medicine 05/12/23 Boot And Shoe Laborer Relationship Specialty Start Date End Date Sammie Gonzalez MD [address] [place] [address] PCP - General Family Medicine 05/12/23 Sammie Gonzalez MD Referring Family Medicine 01/14/21 Sammie Gonzalez MD [address] [place] [address] Referring Family Medicine 05/12/23 Team Status: Inactive [...] March 04, 2024 End: March 04, 2024 Boot And Shoe Laborer Relationship Specialty Start Date End Date Sammie Gonzalez MD [address] [place] [id number] PCP - General Family Medicine 05/12/23 Sammie Gonzalez MD Referring Family Medicine 01/14/21 Sammie Gonzalez MD [address] [place] [address] Referring Family Medicine 05/12/23 Boot And Shoe Laborer Relationship Specialty Start Date End Date Sammie Gonzalez MD [address] [place] [address] PCP - General Family Medicine 05/12/23 Sammie Gonzalez MD Referring Family Medicine 01/14/21 Sammie Gonzalez MD [address] [place] [address] Referring Family Medicine 05/12/23 Boot And Shoe Laborer Relationship Specialty Start Date End Date Sammie Gonzalez MD [address] [facility] [place] [address] PCP - General Family Medicine 05/12/23 Sammie Gonzalez MD Referring Family Medicine 01/14/21 Sammie Gonzalez MD [address] [facility] [place] [address] Referring Family Medicine 05/12/23 Team Status: Inactive Member Role Status Dates Sammie Gonzalez MD Primary Care Provide r, Attending Provider Active Start: May 12, 2024 End: May 12, 2024 Boot And Shoe Laborer Relationship Specialty Start Date End Date Sammie Gonzalez MD [address] [place] [address] PCP - General Family Medicine 05/12/23 Sammie Gonzalez MD Referring Family Medicine 01/14/21 Sammie Gonzalez MD [address] [facility] [address] Referring Family Medicine 05/12/23 Boot And Shoe Laborer Relationship Specialty Start Date End Date Sammie Gonzalez MD [address] [facility] [place] [address] PCP - General Family Medicine 05/12/23 Sammie Gonzalez MD Referring Family Medicine 01/14/21 Sammie Gonzalez MD [address] [facility] [place] [address] Referring Family Medicine 05/12/23 Team Status: Inactive [...] June 22, 2024 End: June 22, 2024 Boot And Shoe Laborer Relationship Specialty Start Date End Date Sammie Gonzalez MD [address] [place] [address] PCP - General Family Medicine 03/12/23 Boot And Shoe Laborer Relationship Specialty Start Date End Date Sammie Gonzalez MD [address] [place] [address] PCP - General Family Medicine 05/12/23 Sammie Gonzalez MD Referring Family Medicine 01/14/21 Sammie Gonzalez MD [address] [place] [address] Referring Family Medicine 05/12/23 Team Status: Inactive [...] September 27, 2024 End: September 27, 2024 Boot And Shoe Laborer Relationship Specialty Start Date End Date Sammie Gonzalez MD [address] [facility] [place] [address] PCP - General Family Medicine 05/12/23 Sammie Gonzalez MD Referring Family Medicine 01/14/21 Sammie Gonzalez MD [address] [facility] [place] [address] Referring Family Medicine 05/12/23 Boot And Shoe Laborer Relationship Specialty Start Date End Date Sammie Gonzalez MD [address] [facility] [place] [address] PCP - General Family Medicine 05/12/23 Sammie Gonzalez MD Referring Family Medicine 01/14/21 Sammie Gonzalez MD [address] [facility] [place] [address] Referring Family Medicine 05/12/23 Team Status: Active [...] November 03, 2024 End: November 03, 2024 Boot And Shoe Laborer Relationship Specialty Start Date End Date Sammie Gonzalez MD [address] [place] [address] PCP - General Family Medicine 05/12/23 Sammie Gonzalez MD Referring Family Medicine 01/14/21 Sammie Gonzalez MD [address] [place] [address] Referring Family Medicine 05/12/23 Team Status: Inactive [...] Attending Provider Active Start: December 27, 2024 Boot And Shoe Laborer Relationship Specialty Start Date End Date Sammie Gonzalez MD [address] [place] [address] PCP - General Family Medicine 05/12/23 Sammie Gonzalez MD Referring Family Medicine 01/14/21 Sammie Gonzalez MD [address] [place] [address] Referring Family Medicine 05/12/23 Team Status: Inactive [...] February 10, 2025 End: February 10, 2025 Boot And Shoe Laborer Relationship Specialty Start Date End Date Sammie Gonzalez MD [address] [facility] [place] [address] PCP - General Family Medicine 05/12/23 Sammie Gonzalez MD Referring Family Medicine 01/14/21 Sammie Gonzalez MD [address] [facility] [place] [address] Referring Family Medicine 05/12/23 Boot And Shoe Laborer Relationship Specialty Start Date End Date Sammie Gonzalez MD [address] [facility] [place] [address] PCP - General Family Medicine 05/12/23 Sammie Gonzalez MD Referring Family Medicine 01/14/21 Sammie Gonzalez MD [address] [facility] [place] [address] Referring Family Medicine 05/12/23 Boot And Shoe Laborer Relationship Specialty Start Date End Date Sammie Gonzalez MD [address] [facility] [place] [address] PCP - General Family Medicine 05/12/23 Sammie Gonzalez MD Referring Family Medicine 01/14/21 Sammie Gonzalez MD [address] [facility] [place] [address] Referring Family Medicine 05/12/23 Boot And Shoe Laborer Relationship Specialty Start Date End Date Sammie Gonzalez MD [address] [facility] [place] [address] PCP - General Family Medicine 05/12/23 Sammie Gonzalez MD Referring Family Medicine 01/14/21 Sammie Gonzalez MD [address] [facility] [place] [address] Referring Family Medicine 05/12/23 Boot And Shoe Laborer Relationship Specialty Start Date End Date Sammie Gonzalez MD [address] [facility] [place] [address] PCP - General Family Medicine 05/12/23 Sammie Gonzalez MD Referring Family Medicine 01/14/21 Sammie Gonzalez MD [address] [facility] [place] [address] Referring Family Medicine 05/12/23 Boot And Shoe Laborer Relationship Specialty Start Date End Date Sammie Gonzalez MD [address] [facility] [place] [address] PCP - General Family Medicine 05/12/23 Sammie Gonzalez MD Referring Family Medicine 01/14/21 Sammie Gonzalez MD [address] [facility] [place] [address] Referring Family Medicine 05/12/23 Boot And Shoe Laborer Relationship Specialty Start Date End Date Sammie Gonzalez MD [address] [facility] [place] [address] PCP - General Family Medicine 05/12/23 Sammie Gonzalez MD Referring Family Medicine 01/14/21 Sammie Gonzalez MD [address] [facility] [place] [address] Referring Family Medicine 05/12/23 Boot And Shoe Laborer Relationship Specialty Start Date End Date Sammie Gonzalez MD [address] [place] [address] PCP - General Family Medicine 05/12/23 Sammie Gonzalez MD Referring Family Medicine 01/14/21 Sammie Gonzalez MD [address] [place] [address] Referring Family Medicine 05/12/23 Boot And Shoe Laborer Relationship Specialty Start Date End Date Sammie Gonzalez MD [address] [place] [address] PCP - General Family Medicine 05/12/23 Sammie Gonzalez MD Referring Family Medicine 01/14/21 Sammie Gonzalez MD [address] [place] [address] Referring Family Medicine 05/12/23 Boot And Shoe Laborer Relationship Specialty Start Date End Date Sammie Gonzalez MD [address] [facility] [place] [address] PCP - General Family Medicine 05/12/23 Sammie Gonzalez MD Referring Family Medicine 01/14/21 Sammie Gonzalez MD [address] [facility] [place] [address] Referring Family Medicine 05/12/23 Boot And Shoe Laborer Relationship Specialty Start Date End Date Sammie Gonzalez MD [address] [facility] [place] [address] PCP - General Family Medicine 05/12/23 Sammie Gonzalez MD Referring Family Medicine 01/14/21 Sammie Gonzalez MD [address] [facility] [place] [address] Referring Family Medicine 05/12/23 Boot And Shoe Laborer Relationship Specialty Start Date End Date Sammie Gonzalez MD [address] [facility] [place] [address] PCP - General Family Medicine 05/12/23 Smamie Gonzalez MD Referring Family Medicine 01/14/21 Sammie Gonzalez MD [address] [facility] [place] [address] Referring Family Medicine 05/12/23 Boot And Shoe Laborer Relationship Specialty Start Date End Date Sammie Gonzalez MD [address] [place] [address] PCP - General Family Medicine 05/12/23 Sammie Gonzalez MD Referring Family Medicine 01/14/21 Sammie Gonzalez MD [address] [place] [address] Referring Family Medicine 05/12/23 Team Status: Inactive [...] March 22, 2025 End: March 22, 2025 Boot And Shoe Laborer Relationship Specialty Start Date End Date Sammie Gonzalez MD [address] [place] [address] PCP - General Family Medicine 05/12/23 Sammie Gonzalez MD Referring Family Medicine 01/14/21 Sammie Gonzalez MD [address] [place] [address] Referring Family Medicine 05/12/23 Name Effective Dates (start - stop) Status Members No Information Boot And Shoe Laborer Relationship Specialty Start Date End Date Sammie Gonzalez MD [address] [place] [address] PCP - General Family Medicine 05/12/23 Sammie Gonzalez MD Referring Family Medicine 01/14/21 Sammie Gonzalez MD [address] [place] [address] Referring Family Medicine 05/12/23 Boot And Shoe Laborer Relationship Specialty Start Date End Date Sammie Gonzalez MD [address] [place] [address] PCP - General Family Medicine 05/12/23 Sammie Gonzalez MD Referring Family Medicine 01/14/21 Sammie Gonzalez MD [address] [place] [address] Referring Family Medicine 05/12/23 Boot And Shoe Laborer Relationship Specialty Start Date End Date Sammie Gonzalez MD [address] [place] [address] PCP - General Family Medicine 05/12/23 Samime Gonzalez MD Referring Family Medicine 01/14/21 Sammie Gonzalez MD [address] [place] [address] Referring Family Medicine 05/12/23 Goals (unrecognized section [...] BE BASED ON THE PRIMARY CLINICAL RECORDS. [facility]. provides no warranty or guarantee of the accuracy or completeness of information in this document.
== END 2025-05-17 13:48 | disposition home or self-care (01) ==
LOC: RAD 13:51
PROVIDERS: PCP Family Medicine; Visit Provider Nurse Practitioner
DX: M54.14 Radiculopathy, thoracic region (principal)
CPT/HCPCS: 72070

== ENCOUNTER 2025-05-29 06:57 | Day surgery (SDC) | payer MEDICARE, MEDICAID, SELFPAY ==
--- OUTSIDE RECORDS SUMMARY | 2024-02-19 07:10 | XMS_ITS ---
Author Organization [facility] Address [address] [place] [address] Care Team Providers Care Fabrication Department Supervisor Name Role Phone Jesus Camacho Primary Care Provider UnavailEtienne Stevenson Unavailable [phone] Haylie Lee Unavailable Reason For Referral Reason REFERRAL TO [place] FOR NAKIA Diagnosis 1 Neck pain (M54.2) Referral Organization [facility] Referring Provider First Name Etienne Referring Provider Last Name [facility] Referring Provider Speciality Orthopedic Surgery Referred Organization Pain clinic General Notes Marielos Giron 2023 12:50:46 PM >, Marielos Giron 03/02/2024 08:51:27 AM >FAXED TO [facility] Referral Priority Routine REASON FOR VISIT Neck/low Back Pain Problems Problem Type SNOMED Code ICD Code Onset Dates Problem Status W/U Status Risk Notes Problem 08662642 Other intervertebral disc displacement, 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) Active confirmed Problem 22316292 Other intervertebral disc degeneration, lumbosacral region (M51.37) Active confirmed Problem 299183997 Spinal stenosis, lumbosacral region (M48.07) Active confirmed Problem 51631610 Spinal stenosis, cervical region (M48.02) Active confirmed Problem 070199881 Other cervical d isc displacement at C5-C6 level (M50.222) Active confirmed Problem 164500594 Other cervical d isc displacement at C6-C7 level (M50.223) Active confirmed Problem 56920748 Radiculopathy, cervical region (M54.12) Active confirmed Encounters Encounter Location Date Provider Diagnosis [facility] [address] [place] [address] [place] [address] 02/19/2024 [facility] Other intervertebral disc displacement, lumbosacral [...] with patient. We will refer her to [place] [facility] for NAKIA of C7/T1 and [...] with patient. We will refer her to [place] [facility] for NAKIA of C7/T1 and [...] Date Lumbar spine, 4v flex ext - 31949 2023 Cervical spine,ap,lat,flex,ext - 51023 0 02/19/2024 SFS - Lumbar Spine PT Order, Isometrics & Strenghening w/Modalities as needed, 2-3 times per week for 6 weeks 02/19/2024 SFS - Cervical Spine PT Orde r, Isometrics & Strenghening w/Modalities as needed. 2-3 x Week for 4-6 Weeks 02/19/2024 Epidural injection - lumbar 02/19/2024 Referrals Referral Date Details 02/19/2024 02/19/2024, REFERRAL TO [place] FOR NAKIA Next Appt Details Follow Up: prn, Reason: Progress Notes * DEON PICHARDO LDOB:[birth year] (49 yo F)Acc No.[id number]:02/19/2024 Patient: DEON ROBERSON Provider: VIVEK Mckenzie :1975 A ge:48 Y S ex:Female Date:02/19/2024 Address:[address] [place], [place] [address], [facility] Pcp:Jesus Camacho Subjective: * Chief Complaints: * 1 . Neck/low Back Pain. * HPI: G eneral Follow Up Information: Dictated by Haylie Seymour PA-C Thank you for referring your patient to see Dr. Byrne in surgical spine consultation at the [facility] [place]. 48-year-old female presents with 20+ years of [...] otor vehicle accident: n o. T hird libertarian responsibility: n o. W hat activities make your symptoms worse? s tanding, walking, bending forward, lying on your stomach, rising from sitting, changing positions.?Quality of pain is N elissa, upper, middle, lower back almost at all times . W hich of the following treatments have you tried? A nti-Inflammatory medications, Narcotic pain medication, hot packs, TENS unit/Muscle stim, Back,Neck exercises, toddler caregiver . W hat activities help the pain? [...] cervical spine without contrast was reviewed from [facility] from 02/09/2024; Impression:C5-6 broad-based disc bulge with [...] lumbar spine without contrast was reviewed from [facility] from 02/09/2024; Impression:At L5-S1 there is a [...] Electronic signature of Nikita Lee PA-C on 05/29/2025 at 06:59 AM EDT Sign off status: Pending * Provider: VIVEK Mckenzie Date: 0 02/19/2024 Generated for Dax ken/Leisa/Isael on: 0 05/29/2025 06:59 AM EDT History and Physical Notes * HPI (History of Present Illness) Category Sub-Category Detail Notes Category Not es General Follow Up Information Dictated by Haylie Seymour PA-C Thank you for referring your patient to see Dr. Byrne in surgical spine consultation at the [facility]. 48-year-old female presents with 20+ years of [...] of Pain/Cause of Injury many years Third libertarian responsibility: no What activities make your symptoms worse ? standing, walking, bending forward, lying on your stomach, rising from sitting, changing positions Which of the following treat ments have you tried? Anti-Inflammatory medications, Narcotic pain medication, hot packs, TENS unit/Muscle stim, Back,Neck exercises, toddler caregiver What activities help the pain? sitting Examination [...] cervical spine without contrast was reviewed from [facility] from 02/09/2024; Impression:C5-6 broad-based disc bulge with [...] lumbar spine without contrast was reviewed from [facility] from 02/09/2024; Impression:At L5-S1 there is a [...]
--- OUTSIDE RECORDS SUMMARY | 2025-05-23 13:20 | XMS_ITS | Encounter Summary ---
Author Organization [facility] Address [address] [place] [address] Care Team Providers Care Mat Packer Name Role Phone Jesus Camacho MD Primary Care Provider [phone] Encounter Details Date Type Department Care Team (Late st Contact Info) Description 05/23/2025 1:20 PM EDT [facility] [address] [address] Sharon Wilburn, PANDA [address] [facility] [address] [place] [address] Fibromyalgia Social History Tobacco Use Types Packs/Day Years Used Date Smoking Tobacco: Former Cigarettes Tobacco Cessation:Counseling Given: Not Answered Comments:>10 years since last smoked Alcohol Use Standard Drinks/Week Comments Yes 0 (1 standard drink = 0.6 oz pur e alcohol) caffeine: stackers Comments Unknown Sex and Gender Information Value Date Recorded Sex Assigned at Not on file Legal Sex Female 8:26 PM EDT Gender Identity Not on file Sexual Orientation Not on file documented as of this encounter Last Filed Vital Signs Vital Sign Reading Time Taken Comments Blood Pressure 118/84 05/23/2025 1:21 PM EDT Pulse 74 05/23/2025 1:21 PM EDT Temperature 36.8 C (98.3 F) 05/23/2025 1:21 PM EDT Respiratory Rate - - Oxygen Saturation 98% 05/23/2025 1:21 PM EDT Inhaled Oxygen Concentration - - Weight 112 kg (248 lb) 05/23/2025 1:21 PM EDT Height - - Body Mass Index 41.27 03/25/2023 10:35 AM EDT documented in this encounter Progress Notes * Sharon Wilburn, PANDA - 05/23/2025 1:20 PM EDT Images from the original note were not included. [address], [address] [facility], [address] P: [phone] F: [phone] HPI Historian of HPI: patient Kourtney Novak is a 49 y.o. female who presents today to the Urgent Care with the following complaints and denials due all over body which has been present for 3 day(s). Pt states that Fibromyalgia Flare up all over her entire body. Pt states that sometimes Toradol helps her. Pt denies any recent injuries, just always feels tired. Pt does not need more steroids, but was wondering about a shot. C/O Denies Symptom Comments [] [x] swelling [] [x] ecchymosis [] [x] erythema [] [x] tingling [] [x] numbness [x] [] Pain radiation All over [] [x] Weakness [x] [] Decreased ROM [] [x] Trauma Additional Comments: pt has taken prednisone that she is prescribed she took 40 mg OTC medication without relief Pt denies heat application to the affected area Pt denies cold application to the affected area States this feels like her usual fibromyalgia flare up. Denies being restricted on any medication use at this time. ROS A complete system ROS was performed and negative aside from the pertinent positives noted in the HPI and PE. PHYSICAL EXAM Examination General Examination: General Examination: in no acute distress, well developed, well nourished Head: normocephalic, atraumatic Heart: S1, S2 normal, regular rate and rhythm, no S3, S4, no murmurs, rubs, gallops Lungs: clear anteriorly and posteriorly, clear to auscultation bilaterally, good air movement, no wheezes, rales, rhonchi Chest: normal shape and expansion, normal anteroposterior (AP) diameter M/s generalize palpable tenderness t/o. No edema noted. Painful ROM BUE and BLE. Psych: alert, oriented TREATMENT PLAN 1. Fibromyalgia Pt med with 60mg toradol IM x1. Continue with recommendations from rheumatology. Immediate eval if new, worsening or warning s/s otherwise follow up with rheumatology this week for recheck. Ophelia Shi regarding pt and plan of care. - ketorolac (Toradol) injection 60 mg documented in this encounter Plan of Treatment Not on file documented as of this encounter Visit Diagnoses Diagnosis Fibromyalgia Unspecified myalgia and myositis documented in this encounter Administered Medications Inactive Administered Medications - up to 3 most recent administrations Medication Order MAR Action Action Date Dose Rate Site ketorolac (Toradol) injection 60 mg 60 mg, Intramuscular, Once, On Thu05/23/25 at 1400, For 1 dose, Max daily dose: 120 mg. Max duration: 5 days totalIndications:Fibromy algia Given 05/23/2025 1:57 PM EDT 60 mg Left Ventrogluteal documented in this encounter Care Teams Mat Packer Relationship Specialty Start Date End Date Jesus Camacho MD PCP - General Family Medicine 03/12/23 documented as of this encounter
--- OUTSIDE RECORDS SUMMARY | 2025-05-24 08:53 | XMS_ITS | Continuity of Care Document ---
Author Organization [facility] Address [address] [place] [address] Phone Care Team Providers Care Sales Driver Name Role Phone Hank Claire MCNAIRan Unavailable [...] 130 MM HG MED LIST DOCD IN RD RVW MEDS BY RX/DR IN [facility] Pt inelig neg scrn depres Moderate Risk Prophylaxis Adult Nutrit Couns For Control Of [place] Dis Nov Oral Hygiene Instruction Depo Provera 1 Ml OFFICE/OUTPATIENT VISIT, EST PREV VISIT, EST, AGE 40-64 Depo Provera 1 Ml Intraoral-complete Series (bw) Comp Oral Eval New/estab Patient 2023 Oral Hygiene Instruction OFFICE/OUTPATIENT VISIT, EST Depo Provera 1 Ml Depo Provera 1 Ml OFFICE/OUTPATIENT VISIT, EST OFFICE/OUTPATIENT VISIT, EST Depo Provera 1 Ml Depo Provera 1 Ml OFFICE/OUTPATIENT VISIT, EST OFFICE/OUTPATIENT VISIT, EST Bp scrn perf rec interval DIAST BP < 80 MM HG SYST BP < 130 MM HG MED LIST DOCD IN [facility] RVW MEDS BY RX/DR IN [facility] Pt inelig neg scrn depres Obtaining [...] HIV-1 URINALYSIS, NONAUTO W/SCOPE CRYOTHERAPY OF SKIN [facility] MEDICAID SPECIMEN HANDLING CRYOTHERAPY OF SKIN Medrxyprogester acetate inj FLU VACCINE, 3 YRS & >, IM OFFICE/OUTPATIENT VISIT, EST Medrxyprogester acetate inj Advance Directives Directive Yes / No Effective Date File Name No Information Encounters Encounter Description Practice Location Reason(s) For Visit Diagnoses Date Provider Providers Copied on Encounter OFFICE/OUTPA TIENT VISIT, [facility], [address] [place] [address], [id number] , [phone] [facility] Encounter for Depo-Provera contraception 5 [facility]. [address] [place] [address], [id number], [place]. tel:[phone] OFFICE/OUTPA TIENT VISIT, [facility], [address] [place], [place], [id number] , [place] tel:[phone] [facility] Encounter for Depo-Provera contraception 5 [facility]. [address], [place], [id number], [place]. tel:[phone] OFFICE/OUTPA TIENT VISIT, [facility], [address] [place] [address], [id number] , [place] tel:[phone] [facility] contraception (chief complaint) Depo Provera injectionBody mass index [BMI]40.0-44.9 , adult Dec- 5 [facility]. [address], [place], [id number], [place]. tel:[phone] [facility], [address] [place] [address], [id number] , [place] tel: [phone] [facility] pa (chief complaint) Body mass index [BMI]40.0-44.9 , adultEncounter for screening for dental disorders 5 Jefe Castillo. [address] [place] [address], [id number], [place]. tel:[phone] OFFICE/OUTPA TIENT VISIT, EST [facility], [address] [place] [address], [id number] , [place] tel: [phone] [facility] Depo (chief complaint) Body mass index [BMI]40.0-44.9 , adultDepo Provera injection 5 [facility]. [address] [place] [address], [id number], [place]. tel:[phone] PREV VISIT, EST, AGE 40-64 [facility], [address] [place] [address], [id number] , [place] tel: [phone] [facility] annual exam (chief complaint)cont raception (chief complaint) Encounter for gynecological examination (general) (routine) without abnormal findingsBody mass index [BMI]40.0-44.9 , adultDepo Provera injectionEncou nter for screening mammogram for Ca of breast 4 [facility]. [address] [place] [address], [id number], [place]. tel:[phone] [facility], [address] [place] [address], [id number] , [place] tel: [phone] [facility] dn (chief complaint)dn (chief complaint) Encounter for screening for dental disorders 4 Jefe Castillo. [address] [place], [place], [id number], [place]. tel:[phone] OFFICE/OUTPA TIENT VISIT, [facility], [address], [place], [id number] , [place] tel:[phone] [facility] Depo (chief complaint) Depo Provera injectionBody mass index [BMI]40.0-44.9 , adult 4 [facility]. [address], [place], [id number], [place]. tel:[phone] OFFICE/OUTPA TIENT VISIT, [facility], [address], [place], [id number] , [place] tel:[phone] [facility] Depo (chief complaint) Body mass index [BMI]40.0-44.9 , adultEncounter for surveillance of injectable contraceptive 4 [facility]. [address], [place], [id number], [place]. tel:[phone] OFFICE/OUTPA TIENT VISIT, [facility], [address], [place], [id number] , [place] tel:[phone] [facility] Depo (chief complaint) Depo Provera injectionBody mass index [BMI]40.0-44.9 , adult 4 [facility]. [address], [place], [id number], [place]. tel:[phone] OFFICE/OUTPA TIENT VISIT, [facility], [address], [place], [id number] , [place] tel:[phone] [facility] contraception (chief complaint) Body mass index [BMI] 39.0-39.9, adultEncounter for surveillance of injectable contraceptive 4 [facility]. [address], [place], [id number], [place]. tel:[phone] OFFICE/OUTPA TIENT VISIT, [facility], [address], [place], [id number] , [place] tel: [phone] [facility] annual exam (chief complaint) Encounter for gynecological examination (general) (routine) without abnormal findingsEncoun ter for surveillance of injectable contraceptiveB francisca mass index [BMI] 37.0-37.9, adult 3 [facility]. [address], [place], [id number], [place]. tel:[phone] OFFICE/OUTPA TIENT VISIT, [facility], [address], [place], [id number] , [place] tel: [phone] [facility] contraception (chief complaint) Encounter for screening mammogram for Ca of breastEncounte r for surveillance of injectable contraceptive 3 [facility]. [address], [place], [id number], [place]. tel:[phone] OFFICE/OUTPA TIENT VISIT, [facility], [address], [place], [id number] , [place] tel: [phone] [facility] contraception (chief complaint) Encounter for surveillance of injectable contraceptiveB francisca mass index [BMI] 39.0-39.9, adult 3 [facility]. [address], [place], [id number], [place]. tel:[phone] OFFICE/OUTPA TIENT VISIT, [facility], [address], [place], [id number] , [place] tel: [phone] [facility] contraception (chief complaint) Encounter for surveillance of injectable contraceptiveB francisca mass index [BMI]40.0-44.9 , adult 3 [facility]. [address], [place], [id number], [place]. tel:[phone] OFFICE/OUTPA TIENT VISIT, [facility], [address], [place], [id number] , [place] tel:[phone] [facility] contraception (chief complaint) Encounter for surveillance of injectable contraceptiveB francisca mass index [BMI]40.0-44.9 , adult Aug- 2 [facility]. [address], [place], [id number], [place]. tel:[phone] OFFICE/OUTPA TIENT VISIT, [facility], [address], [place], [id number] , [place] tel: [phone] [facility] annual exam (chief complaint) Encounter for gynecological examination (general) (routine) without abnormal findingsBody mass index [BMI] 38.0-38.9, adultEncounter for STD screeningOther problem related to lifestyleEncou nter for surveillance of injectable contraceptiveE ncounter for screening mammogram for Ca of breast 2 [facility]. [address], [place], [id number], [place]. tel:[phone] OFFICE/OUTPA TIENT VISIT, [facility], [address], [place], [id number] , [place] tel: [phone] [facility] contraception (chief complaint) Encounter for surveillance of injectable contraceptiveB francisca mass index [BMI] 37.0-37.9, adult 2 [facility]. [address], [place], [id number], [place]. tel:[phone] OFFICE/OUTPA TIENT VISIT, [facility], [address], [place], [id number] , [place] tel:[phone] [facility] contraception (chief complaint) Encounter for surveillance of injectable contraceptiveB francisca mass index [BMI] 39.0-39.9, adult Dec- 2 [facility]. [address], [place], [id number], [place]. tel:[phone] OFFICE/OUTPA TIENT VISIT, [facility], [address], [place], [id number] , [place] tel: [phone] [facility] contraception (chief complaint) Body mass index [BMI] 39.0-39.9, adultEncounter for surveillance of injectable contraceptive 2 [facility]. [address], [place], [id number], [place]. tel:[phone] [facility], [address], [place], [id number] , [place] tel: [phone] [facility] No Information 1 Gera Melgoza. [address], [place], [id number], [place]. tel:[phone] OFFICE/OUTPA TIENT VISIT, [facility], [address], [place], 47809[address] , [place] tel: [phone] [facility] contraception (chief complaint) Encounter for surveillance of injectable contraceptiveB francisca mass index [BMI]40.0-44.9 , adult 1 [facility]. [address], [place], [id number], [place]. tel:[phone] OFFICE/OUTPA TIENT VISIT, [facility], [address], [place], [id number] , [place] tel: [phone] [facility] annual exam (chief complaint) Encounter for gynecological examination (general) (routine) without abnormal findingsEncoun ter for screening mammogram for cancer of breastEncounte r for surveillance of injectable contraceptiveB francisca mass index [BMI] 39.0-39.9, adult 1 [facility]. [address], [place], [id number], [place]. tel:[phone] OFFICE/OUTPA TIENT VISIT, [facility], [address], [place], [id number] , [place] tel: [phone] [facility] contraception (chief complaint) Encounter for surveillance of injectable contraceptiveB francisca mass index [BMI] 39.0-39.9, adult 1 [facility]. [address], [place], [id number], [place]. tel:[phone] OFFICE/OUTPA TIENT VISIT, [facility], [address], [place], [id number] , [place] tel: [phone] [facility] contraception (chief complaint) Encounter for surveillance of injectable contraceptiveB francisca mass index [BMI]40.0-44.9 , adult Oct- 1 [facility]. [address], [place], [id number], [place]. tel:[phone] OFFICE/OUTPA TIENT VISIT, [facility], [address], [place], [id number] , [place] tel: [phone] [facility] contraception (chief complaint) Body mass index [BMI]40.0-44.9 , adultEncounter for surveillance of injectable contraceptive Jul- 0 0 [facility]. [address], [place], [id number], [place]. tel:[phone] OFFICE/OUTPA TIENT VISIT, [facility], [address], [place], [id number] , [place] tel: [phone] [facility] contraception (chief complaint) Body mass index (BMI) 40.0-44.9, adultEncounter for surveillance of injectable contraceptive May-0 0 [facility]. [address], [place], 863750161, [place]. 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 [address], [place], [id number], [place]. tel:[phone] [facility], [address], [place], [id number] , [place] tel:[phone] [facility] Body mass index (BMI) 39.0-39.9, adultEncounter for surveillance of injectable contraceptive 0 [facility]. [address], [place], [id number], [place]. tel:[phone] OFFICE/OUTPA TIENT VISIT, [facility], [address], [place], [id number] , [place] tel:[phone] [facility] contraception (chief complaint) Encounter for surveillance of injectable contraceptiveB francisca mass index (BMI) 39.0-39.9, adult 0 [facility] [address], [id number], [place]. tel:[phone] OFFICE/OUTPA TIENT VISIT, [facility], [address], [place], [id number] , [place] tel:[phone] [facility] contraception (chief complaint) Encounter for surveillance of injectable contraceptiveB francisca mass index (BMI) 37.0-37.9, adult 9 [facility] [address], [place], [id number], [place]. tel:[phone] OFFICE/OUTPA TIENT VISIT, [facility], [address], [place], 857128084 , [place] tel:+ [phone] [facility] contraception (chief complaint) Body mass index (BMI) 36.0-36.9, adultEncounter for surveillance of injectable contraceptive 9 [facility] [address], [place], [id number], [place]. tel:[phone] OFFICE/OUTPA TIENT VISIT, [facility], [address], [place], [id number] , [place] tel:[phone] [facility] annual exam (chief complaint) Encntr for veterinary inspector exam (general) (routine) w/o abn findingsBody mass index (BMI) 35.0-35.9, adultEncounter for STD screeningEncou nter for surveillance of injectable contraceptiveO ther problem related to lifestyle [facility]. [address], [place], [id number], [place]. tel:[phone] OFFICE/OUTPA TIENT VISIT, [facility], [address], [place], [id number] , [place] tel: [phone] [facility] contraception (chief complaint) Body mass index (BMI) 34.0-34.9, adultEncounter for surveillance of injectable contraceptive Nov- 9 [facility]. [address] [place] [address], [id number], [place]. tel:[phone] OFFICE/OUTPA TIENT VISIT, [facility], [address], [place], [id number] , [place] tel:+ [phone] [facility] contraception (chief complaint) Encounter for surveillance of injectable contraceptiveB francisca mass index (BMI) 32.0-32.9, adult Aug-09 22- 8 [facility]. [address], [place], [id number], [place]. tel:[phone] OFFICE/OUTPA TIENT VISIT, [facility], [address] [place] [address], [id number] , [place] tel:[phone] [facility] contraception (chief complaint) Encounter for surveillance of injectable contraceptiveB francisca mass index (BMI) 30.0-30.9, adult Jun-- 8 [facility]. [address], [place], [id number], [place]. tel:[phone] [facility], [address], [place], 580494730 , [place] tel: [phone] [facility] contraception (chief complaint) Encounter for surveillance of injectable contraceptiveB francisca mass index (BMI) 30.0-30.9, adult 8 [facility]. [address], [place], 864938128, [place]. tel:[phone] [facility], [address], [place], [id number] , [place] tel: [phone] [facility] No Information 8 Corinai DO Brody. [address], [place], [id number], [place]. tel:[phone] OFFICE/OUTPA TIENT VISIT, EST [facility], [address], [place], [id number] , [place] tel: [phone] [facility] contraception (chief complaint) No Information 8 [facility]. [address], [place], [id number], [place]. tel:[phone] PREV VISIT, EST, AGE 40-64 [facility], [address] [place] [address], [id number] , [place] tel: [phone] [facility] annual exam (chief complaint) Encntr for veterinary inspector exam (general) (routine) w/o abn findingsEncoun ter for screening mammogram for cancer of breastEncounte r for STD screeningOther problem related to lifestyleEncou nter for surveillance of injectable contraceptiveB francisca mass index (BMI) 30.0-30.9, adult Dec- 8 [facility]. [address], [place], [id number], [place]. tel:[phone] OFFICE/OUTPA TIENT VISIT, EST [facility], [address], [place], [id number] , [place] tel:[phone] [facility] contraception (chief complaint) Encounter for surveillance of injectable contraceptive 8 [facility]. [address], [place], [id number], [place]. tel:[phone] OFFICE/OUTPA TIENT VISIT, [facility], [address], [place], [id number] , [place] tel: [phone] [facility] contraception (chief complaint) Encounter for surveillance of injectable contraceptive 7 [facility]. [address], [place], [id number], [place]. tel:[phone] OFFICE/OUTPA TIENT VISIT, [facility], [address], [place], 845236668 , [place] tel: [phone] [facility] contraception (chief complaint) Encounter for surveillance of injectable contraceptive 7 [facility]. [address], [place], 449601401, [place]. tel:[phone] OFFICE/OUTPA TIENT VISIT, [facility], [address], [place], [id number] , [place] tel: [phone] [facility] contraception (chief complaint) Encounter for surveillance of injectable contraceptive 7 [facility] [address], [place], [id number], [place]. tel:[phone] OFFICE/OUTPA TIENT VISIT, [facility], [address], [place], [id number] , [place] tel:[phone] [facility] Cryo follow-up (chief complaint) Condyloma acuminatum 7 Sandy Kim. [address], [place], [id number], [place]. tel:[phone] OFFICE/OUTPA TIENT VISIT, [facility], [address], [place], [id number] , [place] tel: [phone] [facility] cyrotherapy (chief complaint) Condyloma acuminatum Dec- 7 Sandy Kim. [address], [place], [id number], [place]. tel:[phone] PREV VISIT, [facility], AGE 18-39 [facility], [address], [place], 597571461 , [place] tel: [phone] [facility] annual exam (chief complaint) Encounter for surveillance of injectable contraceptive- well woman with abnormal findingEncount er for STD screeningOther problem related to lifestyleCondy amy acuminatum Nov- 7 [facility]. [address], [place], [id number], [place]. tel:[phone] OFFICE/OUTPA TIENT VISIT, [facility], [address] [place] [address], [id number] , [place] tel: [phone] [facility] contraception (chief complaint) Encounter for surveillance of injectable contraceptive 7 [facility]. [address], [place], 386502304, [place]. tel:[phone] OFFICE/OUTPA TIENT VISIT, [facility], [address], [place], 906786952 , [place] tel: [phone] [facility] contraception (chief complaint) Encounter for surveillance of injectable contraceptive 6 [facility]. [address], [place], 529475264, [place]. tel:[phone] OFFICE/OUTPA TIENT VISIT, [facility], [address], [place], 814584580 , [place] tel: [phone] [facility] contraception (chief complaint) Encounter for surveillance of injectable contraceptive 6 [facility]. [address], [place], 445831273, [place]. tel:[phone] OFFICE/OUTPA TIENT VISIT, [facility], [address], [place], 409666758 , [place] tel: [phone] [facility] contraception (chief complaint) Encounter for surveillance of injectable contraceptive 6 [facility]. [address], [place], 335351283, [place]. tel:[phone] PREV VISIT, EST, AGE 18-39 [facility], [address], [place], 520444598 , [place] tel: [phone] [facility] annual exam (chief complaint) Encounter for general veterinary inspector exam without abnormal findingEncount er for STD screeningOther problem related to lifestyleEncou nter for surveillance of injectable contraceptive 6 [facility]. [address], [place], 188960395, [place]. tel:[phone] OFFICE/OUTPA TIENT VISIT, [facility], [address], [place], [id number] , [place] tel: [phone] [facility] contraception (chief complaint) Encounter for surveillance of injectable contraceptive 5 [facility]. [address], [place], [id number], [place]. tel:[phone] OFFICE/OUTPA TIENT VISIT, [facility], [address], [place], 218544590 , [place] tel: [phone] [facility] contraception (chief complaint) Other specified contraceptive management 5 [facility]. [address], [place], 704865170, [place]. tel:[phone] OFFICE/OUTPA TIENT VISIT, [facility], [address], [place], 774280096 , [place] tel: [phone] [facility] Depo/supply (chief complaint) Other specified contraceptive management 5 [facility]. [address], [place], 798708067, [place]. tel:[phone] OFFICE/OUTPA TIENT VISIT, [facility], [address], [place], 437767903 , [place] tel: [phone] [facility] No Information 5 Hank Poole. [address], [place], 725731670, [place]. tel:[phone] OFFICE/OUTPA TIENT VISIT, [facility], [address], [place], 595362092 , [place] tel: [phone] [facility] Other specified contraceptive management 5 Hank [facility]. [address], [place], 136873059, [place]. tel:[phone] OFFICE/OUTPA TIENT VISIT, [facility], [address], [place], 647360530 , [place] tel: [phone] [facility] annual visit (chief complaint)trevon h control--Depo (chief complaint) Influenza VaccineGynecol ogical ExaminationOth er specified contraceptive management 4 Hank [facility]. [address], [place], 222381014, [place]. tel:[phone] OFFICE/OUTPA TIENT VISIT, [facility], [address], [place], 229603910 , [place] tel: [phone] [facility] supply visit / depo (chief complaint) Other specified contraceptive management 4 [facility] [address], [place], [id number], [place]. tel:[phone] OFFICE/OUTPA TIENT VISIT, [facility], [address], [place], 587160656 , [place] tel: [phone] [facility] supply visit/ depo (chief complaint) Other specified contraceptive management 4 Hank [facility]. [address], [place], 384849569, [place]. tel:[phone] OFFICE/OUTPA TIENT VISIT, [facility], [address], [place], [id number] , [place] tel:+ [phone] [facility] control-Depo (chief complaint) Other specified contraceptive management 4 Hank [facility]. [address], [place], 406654108, [place]. tel:[phone] OFFICE/OUTPA TIENT VISIT, [facility], [address], [place], 080628533 , [place] tel:+ [phone] [facility] supply visit / depo (chief complaint) Surveillance of other contraceptive method 4 Gera Melgoza. [address], [place], 977740359, [place]. tel:[phone] [facility], [address], [place], 692348886 , [place] tel:+ [phone] [facility] annual visit (chief complaint) Gynecological ExaminationGen eral counseling on initiation of other contraceptive measuresOther specified contraceptive management 3 Jairon Lopez. [address] [place], [address], [place]. tel:[phone] OFFICE/OUTPA TIENT VISIT, [facility], [address], [place], 884181684 , [place] tel:+ [phone] [facility] depo (chief complaint) Surveillance of other contraceptive method 3 Joshua Owen. [address], [place], [id number], [place]. tel:[phone] OFFICE/OUTPA TIENT VISIT, [facility], [address], [place], 242676706 , [place] tel:[phone] [facility] depo (chief complaint) Surveillance of other contraceptive method 3 Joshua Owen. [address], [place], 984808237, [place]. tel:[phone] OFFICE/OUTPA TIENT VISIT, [facility], [address], [place], 535887642 , [place] tel: [phone] [facility] No Information 3 Lamp Lexie. [address], [place], [id number], [place]. tel:[phone] OFFICE/OUTPA TIENT VISIT, [facility], [address], [place], 255434010 , [place] tel: [phone] [facility] No Information 2 Jessica Marcum. [address], [place], 043287855, [place]. OFFICE/OUTPA TIENT VISIT, [facility], [address], [place], 454507115 , [place] tel: [phone] [facility] No Information 2201 [address] Lamp Lexie. [address], [place], 503406302, [place]. tel:[phone] [facility], [address], [place], 541948876 , [place] tel: [phone] [facility] No Information [address]. [address] [place], [place], [id number], [place]. tel:[phone] OFFICE/OUTPA TIENT VISIT, [facility], [address], [place], [id number] , [place] tel: [phone] [facility] No Information 0 [address] Lexie. [address] [place], [place], [id number], [place]. tel:[phone] OFFICE/OUTPA TIENT VISIT, [facility], [address], [place], [id number] , [place] tel: [phone] [facility] No Information [address]ie. [address] [place], [place], [id number], [place]. tel:[phone] OFFICE/OUTPA TIENT VISIT, [facility], [address], [place], [id number] , [place] tel: [phone] [facility] No Information 1 Visci DO Skinner. [address], [place], [id number], [place]. tel:[phone] OFFICE/OUTPA TIENT VISIT, [facility], [address], [place], [id number] , [place] tel: [phone] [facility] No Information 0 1 Visci DO Skinner. [address], [place], [id number], [place]. tel:[phone] PREV VISIT, NEW, AGE 18-39 [facility], [address], [place], [id number] , [place] tel: [phone] [facility] No Information [address]ie. [address] [place], [place], [id number], [place]. tel:[phone] OFFICE/OUTPA TIENT VISIT, [facility], [address] [place], [place], [id number] , [place] tel: [phone] [facility] No Information 1 Visci DO Skinner. [address] [place], [place], [id number], [place]. tel:[phone] OFFICE/OUTPA TIENT VISIT, [facility], [address] [place], [place], [address] , [place] tel: [phone] [facility] No Information 0 Visci DO Brody. [address], [place], [id number], [place]. tel:[phone] OFFICE/OUTPA TIENT VISIT, [facility], [address], [place], [address] , [place] tel: [phone] [facility] No Information 3-201 0 Visci DO Brody. [address] [place], [place], [address], [place]. tel:[phone] OFFICE/OUTPA TIENT VISIT, [facility], [address], [place], [id number] , [place] tel: [phone] [facility] No Information 0 1-201 0 Visci DO Brody. [address] [place], [place], [id number], [place]. tel:[phone] PREV VISIT, [facility], AGE 18-39 [facility], [address], [place], [address] , [place] tel: [phone] [facility] No Information 0 6-201 0 [address]ie[address] [place], [place], [id number], [place]. tel:[phone] OFFICE/OUTPA TIENT VISIT, [facility], [address] [place], [place], [address] , [place] tel: [phone] [facility] No Information 0 Visci DO Brody. [address] [place], [place], [address], [place]. tel:[phone] [facility], [address], [place], [address] , [place] tel: [phone] [facility] No Information 4-201 0 Visci DO Brody. [address] [place], [place], [address], [place]. tel:[phone] OFFICE/OUTPA TIENT VISIT, [facility], [address] [place], [place], [address] , [place] tel: [phone] [facility] No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
--- OUTSIDE RECORDS SUMMARY | 2025-05-25 09:30 | XMS_ITS ---
Author Organization [facility] [place] Address [address] [place] [address] Care Team Providers Care Stationary Boiler Fireman Name Role Phone Eric Camacho Primary Care Provider [phone] Allergies No Known Allergies REASON FOR VISIT annual, wants labs done, bone density test Medications Medication SIG (Take, Route, Frequency, Duration) Notes Start Date End Date Status Pioglitazone HCl 15 MG 1 tablet Orally O nce a day; Duration: 30 days Active Plaquenil 200 MG as directed Orally bid Active predniSONE 20 MG 3 tablets Orally Onc e a day; Duration: 5 days 03/20/2025 Active predniSONE 10 MG 5 tabs per day for 3 days, 4 tabs per day for 3 ays, 3 tabs perday for 3 days, 2 tabs per day for 3 days, 1 tab a day for 3 days, 1/2 tab a day for 4 days Orally Once a day; Duration: 19 days 03/28/2025 Active Simvastatin 20 MG 1 tablet in the evening Orally Once a day; Duration: 30 days Active metFORMIN HCl 500 mg TAKE 2 TABLETS BY MOUTH TWICE DAILY; Duration: 30 Active Myrbetriq 50 MG 1 tablet Orally Once a day; Duration: 30 days 06/22/2024 Active Nebulizer Mask and Tubing-Adult - use daily with neb solution; Duration: 365 days DX j44.9 DX:j44.9 05/20/2024 Active Ondansetron HCl 4 MG TAKE 1 TABLET BY [facility] EVERY 6 HOURS NEEDED FOR NAUSEA/VOMITING 30 DAYS; Duration: 30 Active Lubiprostone 24 MCG TAKE 1 CAPSULE BY MOUTH TWICE A DAY; Duration: 90 Active Levothyroxine Sodium 50 MCG TAKE 1 TABLE T BY MOUTH EVERY DAY IN THE MORNING ON EMPTY STOMACH FOR 30 DAYS; Duration: 30 days Active Lodine 400 MG 1 tablet with food Orally Twice a day Active lamoTRIgine 200 MG TAKE 3 TABLETS BY MOUTH ONCE DAILY; Duration: 90 Active Lancets 33G - Use 1 lancet to chec k glucose once daily; Duration: 90 days 03/06/2023 Active Glycopyrrolate 1 MG 1 tablet Orally Once a day Active Ibuprofen 800 MG 1 tablet with food o r milk as needed Orally every 8 hrs; Duration: 25 days Active Fioricet 50-300-40 MG 1 capsule as neede d Orally every 4 hrs 03/10/2024 Active Ipratropium-Albuterol 0.5-2.5 (3) MG/3ML USE 1 VIAL INHALATION EVERY 6 HOURS NEEDED; Duration: 30 Active Lactulose 20 GM/30ML 30 ml Orally Once a day - up to bid; Duration: 30 days Active Dexlansoprazole 60 MG TAKE 1 CAPSULE BY MOUTH TWICE A DAY Orally BID; Duration: 90 days Active Doxepin HCl 10 MG TAKE 1 CAPSULE BY MOUTH THREE TIMES A DAY FOR 30 DAYS; Duration: 90 Active DULoxetine HCl 60 MG TAKE 1 CAPSULE BY MOUTH EVERY DAY Oral; Duration: 30 Days Active Farxiga 5 MG TAKE 1 TABLET BY ADRIAN TH EVERY DAY; Duration: 90 Active Chlorzoxazone 500 MG 1 tablet as needed Orally bid; Duration: 30 days 05/09/2024 Active Blood Glucose Test - Use 1 strip In Vitr o daily; Duration: 90 days 03/06/2023 Active Blood Glucose Monitor System w/Device Use Device to check glucose every day; Duration: 90 days 03/06/2023 Active Budesonide 1 MG/2ML 1 mL Inhalation Once a day DX J44.9; Duration: 90 days Active Carafate 1 GM 1 tablet on an empty stomach Orally Twice a day Active Cetirizine HCl 10 MG 1 tablet Orally Onc e a day; Duration: 30 days 05/04/2024 Active Albuterol Sulfate (2.5 MG/3ML) 0.083% 3 mL as needed Inhalation every 6 hrs; Duration: 30 days Active Social History Tobacco Use: Social History Observation Description Date Details (start date - stop date) Former Smoker 09/14/1993 - 09/14/2009 Tobacco Use/Smoking Question Answer Notes Patient is a former smoker When did you start smoking? 09/14/1993 When did you stop smoking? 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 and Murmur R01.1 Assessments Encounter Date Diagnosis (ICD Code) Assessment Notes Treatment Notes Treatment Clinical Notes Section Notes 05/25/2025 Well adult (ICD-10 - Z00.00) 05/25/2025 Vitamin D deficiency (ICD-10 - E55.9) 05/25/2025 Nontoxic single thyroid nodule (ICD-10 - E04.1) 05/25/2025 Murmur (ICD-10 - R01.1) Plan Of Treatment Pending Test Test Name Order Date HEMOGLOBIN A1C (GLYCO) 05/25/2025 IRON, TOTAL 05/25/2025 LIPID PANEL (CHOL/TRIG/HDL/LDL) 05/25/20 25 VITAMIN D, 25 LEVEL (TOTAL) 05/25/2025 CARDIO Echocardiogram 05/25/2025 Insulin Level 05/25/2025 MAGNESIUM 05/25/2025 PHOSPHORUS 05/25/2025 VIT B12 AND FOLATE 05/25/2025 VITAMIN D 25 OH 05/25/2025 US THYROID 05/25/2025 XR DEXA BONE DENSITY 05/25/2025 THYROID PANEL (T4/TSH/FREE T3) 5 MM screening mammo BI 05/25/2025 CMP (COMP MET PICKETT) w/eGFR CKD-EPI 2024 CBC WITH DIFF 05/25/2025 Progress Notes * Kourtney PICHARDO LDOB:[birth year] (49 yo F)Acc No.[id number]:05/25/2025 UNLOCKED PROGRESS NOTE Progress Note Patient: K OHLENBERG, Kourtney L Provider: Macrina Camacho ([facility])MD :1975 A ge:49 Y S ex:Female Date:05/25/2025 Address:[place], [id number] Check In:02:07 PM ESTCheck O ut:02:11 PM EST Subjective: * Chief Complaints: * 1 . Annual. 2. Wants labs done. 3. Bone density test. * HPI: G eneral: well adult. * ROS: E ENT: hearing changes d enies. v isual changes d enies.?non-healing mouth sores d enies. s wollen glands or neck lumps d enies. h oarseness d enies. s ore throat d enies. d ifficulty swallowing d enies. n ose bleeds d enies. n veronika congestion d enies. e ar ache d enies. e ar discharge?denies. r inging in ears d enies. l ight sensitivity d enies. e ye pain d enies. b lurring d enies. e ye irritation d enies. d ouble vision d enies.?vision loss d enies. G eneral/Constitutional: Sweats: D enies. F atigue d enies. S leep problems d enies. A norexia d enies. M alaise d enies. W eight loss d enies.?Fatigue or Weakness d enies. F ever or Chills d enies. C ardiovascular: Shortness of Breath w/lying flat d enies. L ightheadedness/dizziness d enies. C hest tightness/ heavy pressure d enies. S welling of legs, ankles, or feet d enies. W aking up with shortness of breath d enies. C hest pain denies. P alpitations d enies. W eight gain d enies. R espiratory: Chronic or frequent cough d enies. C oughing up blood?denies. D ifficulty breathing d enies. P roductive cough d enies. S noring?denies. S hortness of breath that awakens from sleep (PND) d enies. C hest pain d enies. S putum production d enies. W heezing d enies. M usculoskeletal: Joint pain d enies. J oint Fluid d enies. B ack pain d enies. K nee pain d enies. N elissa pain d enies. J oint Stiffness d enies. M uscle cramps d enies. W eakness of muscles d enies. A rthritis d enies. M uscle aches d enies. P ain in shoulder(s) d enies. S wollen joints d enies. * Medical History: T ension headache, Abnormal PFTs, Ankle edema, Fibromyalgia, Epigastric abdominal pain, MAREK (obstructive sleep apnea), Lung nodule, Rectal bleeding, Excessive sweating, Vertigo, Controlled type 2 diabetes mellitus, Lumbar disc disease, Acid reflux, Brachial plexus disorders, Chronic obstructive pulmonary disease, unspecified, Hypertension, Irritable bowel syndrome (IBS), Eczema, Paresthesia, Anxiety and depression. * Surgical History: A ppendectomy , Cubital Tunnel, right 2019, Carpal Tunnel x2 on right, x1 left , Rt Radius core Decompression with Dr. Gomes , Right rib removal , Repair of bones in left arm d/t fracture , Left C4-5, 5-6 radiofrequency ablation 07/18/2024, craniotomy 02/20/25, C5-C6 transforaminal epidural steroid injection 04/24/2025. * Hospitalization/Major Diagno stic Procedure: D enies Past Hospitalization. * Family History: F ather: , seizures, [...] hen did you stop smoking? 0 09/14/2009 * Medications: T aking Albuterol Sulfate (2.5 MG/3ML) 0.083% Nebulization Solution 3 mL as needed Inhalation every 6 hrs , Taking Blood Glucose Monitor System w/Device Kit Use Device to check glucose every day , Taking Blood Glucose Test - Strip Use 1 strip In Vitro daily , Taking Budesonide 1 MG/2ML Suspension 1 mL Inhalation Once a day DX J44.9 , Taking Carafate(Sucralfate) 1 GM Tablet 1 tablet on an empty stomach Orally Twice a day , Taking Cetirizine HCl 10 MG Tablet 1 tablet Orally Once a day , Taking Chlorzoxazone 500 MG Tablet 1 tablet as needed Orally bid , Taking Dexlansoprazole 60 MG Capsule Delayed Release TAKE 1 CAPSULE BY MOUTH TWICE A DAY Orally BID , Taking Doxepin HCl 10 MG Capsule TAKE 1 CAPSULE BY MOUTH THREE TIMES A DAY FOR 30 DAYS , Taking DULoxetine HCl 60 MG Capsule Delayed Release Particles TAKE 1 CAPSULE BY MOUTH EVERY DAY Oral , Taking Farxiga(Dapagliflozin Propanediol) 5 MG Tablet TAKE 1 TABLET BY MOUTH EVERY DAY , Taking Fioricet(Vmsgbbhyyc-NDYZ-Rxsdctjw) 50-300-40 MG Capsule 1 capsule as needed Orally every 4 hrs , Taking Glycopyrrolate 1 MG Tablet 1 tablet Orally Once a day , Taking Ibuprofen 800 MG Tablet 1 tablet with food or milk as needed Orally every 8 hrs , Taking Ipratropium-Albuterol 0.5-2.5 (3) MG/3ML Solution USE 1 VIAL INHALATION EVERY 6 HOURS NEEDED , Taking Lactulose 20 GM/30ML Solution 30 ml Orally Once a day - up to bid , Taking lamoTRIgine 200 MG Tablet TAKE 3 TABLETS BY MOUTH ONCE DAILY , Taking Lancets 33G(Lancets) - Miscellaneous Use 1 lancet to check glucose once daily , Taking Levothyroxine Sodium 50 MCG Tablet TAKE 1 TABLET BY MOUTH EVERY DAY IN THE MORNING ON EMPTY STOMACH FOR 30 DAYS , Taking Lodine(Etodolac) 400 MG Tablet 1 tablet with food Orally Twice a day , Taking Lubiprostone 24 MCG Capsule TAKE 1 CAPSULE BY MOUTH TWICE A DAY , Taking metFORMIN HCl 500 mg Tablet TAKE 2 TABLETS BY MOUTH TWICE DAILY , Taking Myrbetriq(Mirabegron ER) 50 MG Tablet Extended Release 24 Hour 1 tablet Orally Once a day , Taking Nebulizer Mask and Tubing-Adult - miscellaneous use daily with neb solution DX j44.9, Notes to Pharmacist: JADEN:j44.9, Taking Ondansetron HCl 4 MG Tablet TAKE 1 TABLET BY MOUTH EVERY 6 HOURS NEEDED FOR NAUSEA/VOMITING 30 DAYS , Taking Pioglitazone HCl 15 MG Tablet 1 tablet Orally Once a day , Taking Plaquenil(Hydroxychloroquine Sulfate) 200 MG Tablet as directed Orally bid , Taking predniSONE 20 MG Tablet 3 tablets Orally Once a day , Taking predniSONE 10 MG Tablet 5 tabs per day for 3 days, 4 tabs per day for 3 ays, 3 tabs perday for 3 days, 2 tabs per day for 3 days, 1 tab a day for 3 days, 1/2 tab a day for 4 days Orally Once a day , Taking Simvastatin 20 MG Tablet 1 tablet in the evening Orally Once a day , Discontinued levoFLOXacin 750 MG Tablet 1 tablet Orally Once a day , Medication List reviewed and reconciled with the patient * Allergies: N .K.D.A. Objective: * Vitals: W t:252.0lbs, Ht: 65.5 in, BP:138/78mm Hg, BMI:41.29Index, Ht-cm: 166.37 cm, Wt- k.31 kg. * Examination: P hysical Exam: GENERAL: w ell developed, well nourished, in no acute distress. HEAD: n ormocephalic/atraumatic. EYES: p upils equal, round and reactive to light, conjunctivae and sclerae normal. EARS: n o deformity or lesion of external ear, canals and TM appear normal bilaterally, TM's intact, not inflamed with normal light reflex, hearing grossly normal to conversational speech. NOSE: n o deformity, discharge, inflammation, or lesions.? MOUTH: m ucous membranes moist, normal oropharynx and posterior pharynx without lesions or exudates, tongue normal, dentition normal. NECK: n elissa supple, no masses or palpable cervical nodes, trachea midline, thyroid without nodules, masses, tenderness, or enlargement. CHEST: n o chest wall deformity, no chest wall tenderness.? LUNGS: n ormal respiratory effort and clear to auscultation, no wheezes, rales, or rhonchi, good air exchange. CARDIO: r egular rate and rhythm, normal S1 and S2, nor murmur, rub, or gallop. PULSES: n ormal capillary refill. ABDOMEN: s oft, non-distended, non-tender, no masses. MUSCULOSKELETAL: n o deformity or scoliosis noted, normal range of motion, joints normal, no erythema, edema, effusion, or ecchymosis. EXTREMITY: n o clubbing, cyanosis, edema, or deformity with normal ROM in both upper and lower bilateral extremities. NEUROLOGIC: g rossly normal. SKIN: n o rashes, ulcerations, or suspicious lesions. LYMPH NODES: n o cervical adenopathy, nodes normal. MENTAL STATUS: a lert and oriented x3, normal mood and affect. Assessment: * Assessment: 1. W ell adult - Z00.00 (Primary) 2 . N ontoxic single thyroid nodule - E04.1 3 . V itamin D deficiency - E55.9 4 . M urmur - R01.1? Plan: * Treatment: 2. N ontoxic single thyroid nodule I maging: US THYROID 3. V itamin D deficiency L AB: VITAMIN D, 25 LEVEL (TOTAL) L AB: VITAMIN D 25 OH 4. M urmur P rocedure: CARDIO Echocardiogram * Procedure Codes: G 0439 ANNUAL WELLNESS, SUBSEQ * Preventive Medicine: Screenings/Counseling: B PR ACTION PLAN Above Normal BMI Follow-up D ietary management education, guidance, and counseling * * Electronic signature of Eric Camacho MD, [phone] on 05/29/2025 at 06:59 AM EDT Sign off status: Pending Visit Status: C HK (Check Out) * Provider: Macrina Camacho ([facility])MD Date: 05/25/2025 Generated for Printi ng/Faraina/eTransmitting on: 05/29/2025 06:59 AM EDT History and Physical Notes * HPI (History of Present Illness) Category Sub-Category Detail Notes Category Not es General well adult Examination Category Sub-Category Detail Notes Category Not es Physical Exam GENERAL: well developed, well nourished, in no acute distress HEAD: normocephalic/atraum atic EYES: pupils equal, round and reactive to light, conjunctivae and sclerae normal EARS: no deformity or lesi on of external ear, canals and TM appear normal bilaterally, TM's intact, not inflamed with normal light reflex, hearing grossly normal to conversational speech NOSE: no deformity, discha rge, inflammation, or lesions MOUTH: mucous membranes chase st, normal oropharynx and posterior pharynx without lesions or exudates, tongue normal, dentition normal NECK: neck supple, no mass es or palpable cervical nodes, trachea midline, thyroid without nodules, masses, tenderness, or enlargement CHEST: no chest wall deform ity, no chest wall tenderness LUNGS: normal respiratory e ffort and clear to auscultation, no wheezes, rales, or rhonchi, good air exchange CARDIO: regular rate and rhy thm, normal S1 and S2, nor murmur, rub, or gallop PULSES: normal capillary ref ill ABDOMEN: soft, non-distended, non-tender, no masses RECTAL: MUSCULOSKELETAL: no deformity or scol iosis noted, normal range of motion, joints normal, no erythema, edema, effusion, or ecchymosis EXTREMITY: no clubbing, cyanosi s, edema, or deformity with normal ROM in both upper and lower bilateral extremities NEUROLOGIC: grossly normal SKIN: no rashes, ulceratio ns, or suspicious lesions LYMPH NODES: no cervical adenopat hy, nodes normal MENTAL STATUS: alert and oriented x 3, normal mood and affect
--- OUTSIDE RECORDS SUMMARY | 2025-05-29 06:59 | XMS_ITS | Encounter Summary ---
Author Organization [facility] Address [facility] [place] [address] Care Team Providers Care Hospice Superintendent Name Role Phone Jesus Camacho MD Unavailable [phone] Jesus Camacho MD Unavailable [phone] Jesus Camacho MD Primary Care Provider [phone] Source Comments In the event this information is protected by the Federal Confidentiality of Alcohol and Drug AbusePatient Records regulations: The Federal rules restrict any use of the information to criminally investigate or prosecute any alcohol or drug abuse patient.[facility] Encounter Details Date Type Department Care Team (Late st Contact Info) Description 03/19/2025 Get Medical Advice [facility] [address] [id number] Jacky Pineda MD [address] [place] [address] Incision picture Social History Tobacco [...] is lower risk 8 06/01/2023 Data from: https://www.neighborhoodatlas.medicine.[facility]/. Last address used for calculation [address] [...] 06/22/2025 2:20 PM EDT Office Visit Rheumatology [address] [place] [address] Zulema Mclean MD [address] [facility] [address] [place] [address] 6 month follow up documented as of this encounter Visit Diagnoses Not on filedocumented in this encounter Care Teams Hospice Superintendent Relationship Specialty Start Date End Date Jesus Camacho MD [address] [place] [address] PCP - General Family Medicine 05/12/23 Jesus Camacho MD Referring Family Medicine 01/14/21 Jesus Camacho MD [address] [place] [address] Referring Family Medicine 05/12/23 documented as of this encounter
--- OUTSIDE RECORDS SUMMARY | 2025-05-29 06:59 | XMS_ITS | Encounter Summary ---
Author Organization [facility] Address [facility] [place] [address] Care Team Providers Care Economic Manager Name Role Phone Jesus Camacho MD Unavailable [phone] Jesus Camacho MD Unavailable [phone] Jesus Camacho MD Primary Care Provider [phone] Source Comments In the event this information is protected by the Federal Confidentiality of Alcohol and Drug AbusePatient Records regulations: The Federal rules restrict any use of the information to criminally investigate or prosecute any alcohol or drug abuse patient.[facility] Encounter Details Date Type Department Care Team (Late st Contact Info) Description 02/07/2024 Get Medical Advice [facility] [address] [place] [address] Jacky Pineda MD [address] [place] [address] Appointments Social History Tobacco Use [...] lower risk 8 06/01/2023 Data from: https://www.neighborhoodatlas.medicine.[facility]/. Last address used for calculation [address] [...] 06/22/2025 2:20 PM EDT Office Visit Rheumatology [address] [place] [address] Zulema Mclean MD [address] [facility] [address] [place] [address] 6 month follow up documented as of this encounter Visit Diagnoses Not on filedocumented in this encounter Care Teams Economic Manager Relationship Specialty Start Date End Date Jesus Camacho MD [address] [place] [address] PCP - General Family Medicine 05/12/23 Jesus Camacho MD Referring Family Medicine 01/14/21 Jesus Camacho MD [address] [place] [address] Referring Family Medicine 05/12/23 documented as of this encounter
--- OUTSIDE RECORDS SUMMARY | 2025-05-29 06:59 | XMS_ITS | Encounter Summary ---
Author Organization [facility] Address [address] [place] [address] Care Team Providers Care Stack Matcher Name Role Phone Jesus Camacho MD Unavailable Jesus Camacho MD Unavailable [phone] Jesus Camacho MD Primary Care Provider [phone] Source Comments In the event this information is protected by the Federal Confidentiality of Alcohol and Drug AbusePatient Records regulations: The Federal rules restrict any use of the information to criminally investigate or prosecute any alcohol or drug abuse patient.[facility] Encounter Details Date Type Department Care Team (Late st Contact Info) Description 05/23/2024 Patient [facility] HB-[address] [place] [address] Sabina Carrillo RPh At your next appointment, choose [facility]. Social History Tobacco Use Types Packs/Day Years Used Date Smoking Tobacco: Former Smokeless Tobacco: Never Alcohol Use Standard Drinks/Week Comments Yes 0 (1 standard drink = 0.6 oz pur e alcohol) PHQ-2 Answer Date Recorded PHQ-2 score 0 02/01/2024 Area Deprivation Index Answer Date Leiseo rded National Score (1-100), lower number is lower ri sk 89 06/01/2023 State Score (1-10), lower number is lower risk 8 06/01/2023 Data from: https://www.neighborhoodatlas.medicine.[facility]/. Last address used for calculation [address] [...] 06/22/2025 2:20 PM EDT Office Visit Rheumatology [address] [place] [address] Zulema Mclaen MD [address] [facility] [address] [place] [address] 6 month follow up documented as of this encounter Visit Diagnoses Not on filedocumented in this encounter Care Teams Stack Matcher Relationship Specialty Start Date End Date Jesus Camacho MD [address] [place] [address] PCP - General Family Medicine 05/12/23 Jesus Camacho MD Referring Family Medicine 01/14/21 Jesus Camacho MD [address] [place] [address] Referring Family Medicine 05/12/23 documented as of this encounter
--- OUTSIDE RECORDS SUMMARY | 2025-05-29 06:59 | XMS_ITS | Encounter Summary ---
Author Organization [facility] Address [facility] [place] [address] Care Team Providers Care Hospitality Associate Name Role Phone Jesus Camacho MD Unavailable [phone] Jesus Camacho MD Unavailable [phone] Jesus Camacho MD Primary Care Provider [phone] Source Comments In the event this information is protected by the Federal Confidentiality of Alcohol and Drug AbusePatient Records regulations: The Federal rules restrict any use of the information to criminally investigate or prosecute any alcohol or drug abuse patient.[facility] Encounter Details Date Type Department Care Team (Late st Contact Info) Description 01/31/2024 Get Medical Advice [facility] [address] [place] [address] Jacky Pineda MD [address] [place] [address] MRI Social History Tobacco Use [...] is lower risk 8 06/01/2023 Data from: https://www.neighborhoodatlas.medicine.[facility]/. Last address used for calculation [...] 06/22/2025 2:20 PM EDT Office Visit Rheumatology [address] [place] [address] Zulema Mclean MD [address] [facility] [address] [place] [address] 6 month follow up documented as of this encounter Visit Diagnoses Not on filedocumented in this encounter Care Teams Hospitality Associate Relationship Specialty Start Date End Date Jesus Camacho MD [address] [place] [address] PCP - General Family Medicine 05/12/23 Jesus Camacho MD Referring Family Medicine 01/14/21 Jesus Camacho MD [address] [place] [address] Referring Family Medicine 05/12/23 documented as of this encounter
--- OUTSIDE RECORDS SUMMARY | 2025-05-29 06:59 | XMS_ITS | Encounter Summary ---
Author Organization [facility] Address [address] [place] [address] Care Team Providers Care District Branch Manager Name Role Phone Jesus Camacho MD Primary Care Provider [phone] Encounter Details Date Type Department Care Team (Latest Contact Info) Description 05/23/2025 Travel Social History Tobacco Use Types Packs/Day Years [...] on file documented as of this encounter Plan of Treatment Not on file documented as of this encounter Visit Diagnoses Not on filedocumented in this encounter Care Teams District Branch Manager Relationship Specialty Start Date End Date Jesus Camacho MD PCP - General Family Medicine 03/12/23 documented as of this encounter
--- OUTSIDE RECORDS SUMMARY | 2025-05-29 06:59 | XMS_ITS | Encounter Summary ---
Author Organization [facility] Address [address] [place] [address] Care Team Providers Care Dry Heat Cabinet Attendant Name Role Phone Jesus Camacho MD Unavailable [phone] Jesus Camacho MD Unavailable [phone] Jesus Camacho MD Primary Care Provider [phone] Source Comments In the event this information is protected by the Federal Confidentiality of Alcohol and Drug AbusePatient Records regulations: The Federal rules restrict any use of the information to criminally investigate or prosecute any alcohol or drug abuse patient.[facility] Encounter Details Date Type Department Care Team (Late st Contact Info) Description 02/09/2024 Get Medical Advice Neurology Headache [facility] [address] [place] [address] Rachele Fenton, MARILEE.DIRECTIONAL BORE OPERATOR [address] [place] [address] Medicine Social History Tobacco Use [...] lower risk 8 06/01/2023 Data from: https://www.neighborhoodatlas.medicine.[facility]/. Last address used for calculation [address] [facility] 06/01/2023 Comments No Sex and Gender [...] 06/22/2025 2:20 PM EDT Office Visit Rheumatology [address] [place] [address] Zulema Mclean MD [address] [facility] [address] [place] [address] 6 month follow up documented as of this encounter Visit Diagnoses Not on filedocumented in this encounter Care Teams Dry Heat Cabinet Attendant Relationship Specialty Start Date End Date Jesus Camacho MD [address] [place] [address] PCP - General Family Medicine 05/12/23 Jesus Camacho MD Referring Family Medicine 01/14/21 Jesus Camacho MD [address] [place] [address] Referring Family Medicine 05/12/23 documented as of this encounter
--- OUTSIDE RECORDS SUMMARY | 2025-05-29 06:59 | XMS_ITS | Encounter Summary ---
Author Organization [facility] Address [address] [place] [address] Care Team Providers Care Domestic Travel Consultant Name Role Phone Jesus Camacho MD Unavailable [phone] Jesus Camacho MD Unavailable [phone] Jesus Camacho MD Primary Care Provider [phone] Source Comments In the event this information is protected by the Federal Confidentiality of Alcohol and Drug AbusePatient Records regulations: The Federal rules restrict any use of the information to criminally investigate or prosecute any alcohol or drug abuse patient.[facility] Encounter Details Date Type Department Care Team (Late st Contact Info) Description 02/03/2024 Cure Form [facility] [address] [id number] Shakila Phillips, RN [address] [place] [address] Intracranial meningioma (HCC) (Primary Dx); Preop testing [...] lower risk 8 06/01/2023 Data from: https://www.neighborhoodatlas.medicine.[facility]/. Last address used for calculation [...] 06/22/2025 2:20 PM EDT Office Visit Rheumatology [address] [place] [address] Zulema Mclean MD [address] [facility] [address] [place] [address] 6 month follow up Scheduled Orders Name Type Priority Associated Diagnoses Orde r Schedule REFER FOR ADMIT INTERVIEW Procedures Routine Intracranial meningioma (HCC) Preop testing Ordered: 02/03/2024 documented as of this encounter Visit Diagnoses Diagnosis Intracranial meningioma (HCC)- Primary Benign neoplasm of cerebral meninges Preop testing Preoperative examination, unspecified documented in this encounter Care Teams Domestic Travel Consultant Relationship Specialty Start Date End Date Jesus Camacho MD [address] [place] [address] PCP - General Family Medicine 05/12/23 Jesus Camacho MD Referring Family Medicine 01/14/21 Jesus Camacho MD [address] [place] [address] Referring Family Medicine 05/12/23 documented as of this encounter
--- OUTSIDE RECORDS SUMMARY | 2025-05-29 07:00 | XMS_ITS | Clinical Summary ---
Author Organization [facility] Address [address] [place] [address] Care Team Providers Care Custom Protection Officer Name Role Phone Jesus Camacho MD Primary Care Provider [phone] Allergies No known active allergies Medications Brexpiprazole [...] 4 TIMES A DAY 3 Active Drug [place] Unilet Lancets 33G misc USE ONCE DAILY [...] MOUTH EVERY DAY WITH FOOD 4 Active Hospital, Clinic, or Other Facility Administered Medication Ordered Dose Route Frequency Start Date End Date Status ketorolac (Toradol) injection 60 mgIndications:Fibromyalgia 60 mg IM Once 05/23/2025 5 Ended Active Problems Problem Noted Date Diagnosed Date Rib pain on right side 03/25/2023 Bloating 03/25/2023 DM type 2 without retinopathy 03/24/2023 Fibromyalgia 03/24/2023 Myopia of both eyes 03/24/2023 Nuclear senile cataract 03/24/2023 Open angle with borderline findings, low risk, b ilateral 03/24/2023 Otitis externa 03/24/2023 Presbyopia 03/24/2023 Encounters Date Type Department Care Team Description 05/23/2025 1:20 PM EDT Office Visit [facility] [address] [place] [address] Sharon Wilburn, SALES TRAINEE Fibromyalgia 05/23/2025 Travel from Last 3 Months Immunizations Immunization Administration Dates Next Due Hep [...] F) 05/23/2025 1:21 PM EDT Respiratory Rate 18 02/01/2024 9:30 AM EDT Oxygen Saturation 98% 05/23/2025 1:21 PM EDT Inhaled Oxygen Concentration - - Weight 112 kg (248 lb) 05/23/2025 1:21 PM EDT Height 165.1 cm (5' 5 ) 03/25/2023 10:35 AM EDT Body Mass Index 41.27 03/25/2023 10:35 AM EDT Plan of Treatment Health Maintenance Due Date Last Done Comments CT Colonography 1977 Colonoscopy 1977 Colorectal Cancer Screening 1977 FIT-DNA 1977 FIT 1977 FOBT 1977 Sigmoidoscopy 1977 Pap Smear 1998 Cervical Cancer Screening 2007 HPV/Cotest 2007 Mammogram 2017 Influenza Vaccine (#1) 2025 2, 07/12/2021, 07/04/2020, Additional history exists Insurance MEDICARE [employer] MEDICARE ADVANTAGE MEDICAID [place] Care Teams Custom Protection Officer Relationship Specialty Start Date End Date Jesus Camacho MD PCP - General Family Medicine 03/12/23
--- OUTSIDE RECORDS SUMMARY | 2025-05-29 07:00 | XMS_ITS | Encounter Summary ---
Author Organization [facility] Address [facility] [place] [address] Care Team Providers Care Lumber Buyer Name Role Phone Jesus Camacho MD Unavailable [phone] Jesus Camacho MD Unavailable Jesus Camacho MD Primary Care Provider [phone] Source Comments In the event this information is protected by the Federal Confidentiality of Alcohol and Drug AbusePatient Records regulations: The Federal rules restrict any use of the information to criminally investigate or prosecute any alcohol or drug abuse patient.[facility] Encounter Details Date Type Department Care Team (Late st Contact Info) Description 10/08/2023 Get Medical Advice [facility] [address] [place] [address] Jacky Pineda MD [address] [place] [address] Eye problems Social History Tobacco [...] lower risk 8 06/01/2023 Data from: https://www.neighborhoodatlas.medicine.[facility]/. Last address used for [...] 06/22/2025 2:20 PM EDT Office Visit Rheumatology [address] [place] [address] Zulema Mclean MD [address] [facility] [address] [place] [address] 6 month follow up documented as of this encounter Visit Diagnoses Not on filedocumented in this encounter Care Teams Lumber Buyer Relationship Specialty Start Date End Date Jesus Camacho MD [address] [place] [address] PCP - General Family Medicine 05/12/23 Jesus Camacho MD Referring Family Medicine 01/14/21 Jesus Camacho MD [address] [place] [address] Referring Family Medicine 05/12/23 documented as of this encounter
--- OUTSIDE RECORDS SUMMARY | 2025-05-29 07:00 | XMS_ITS | Encounter Summary ---
Author Organization [facility] Address [address] [place] [address] Care Team Providers Care Investment Director Name Role Phone Jesus Camacho MD Unavailable [phone] Jesus Camacho MD Unavailable [phone] Jesus Camacho MD Primary Care Provider [phone] Source Comments In the event this information is protected by the Federal Confidentiality of Alcohol and Drug AbusePatient Records regulations: The Federal rules restrict any use of the information to criminally investigate or prosecute any alcohol or drug abuse patient.[facility] Encounter Details Date Type Department Care Team (Late st Contact Info) Description 01/19/2025 Patient Msg [facility] [address] [place] [address] Provider, [facility] Pre Surgery appointments [...] is lower risk 8 06/01/2023 Data from: https://www.neighborhoodatlas.medicine.[facility]/. Last address used for calculation [address] [...] 06/22/2025 2:20 PM EDT Office Visit Rheumatology [address] [place] [address] Zulema Mclean MD [address] [facility] [address] [place] [address] 6 month follow up documented as of this encounter Visit Diagnoses Not on filedocumented in this encounter Care Teams Investment Director Relationship Specialty Start Date End Date Jesus Camacho MD [address] [place] [address] PCP - General Family Medicine 05/12/23 Jesus Camacho MD Referring Family Medicine 01/14/21 Jesus Camacho MD [address] [place] [address] Referring Family Medicine 05/12/23 documented as of this encounter
--- OUTSIDE RECORDS SUMMARY | 2025-05-29 07:00 | XMS_ITS | Encounter Summary ---
Author Organization [facility] Address [address] [place] [address] Care Team Providers Care Fertilizer Applicator Name Role Phone Jesus Camacho MD Unavailable [phone] Jesus Camacho MD Unavailable [phone] Jesus Camacho MD Primary Care Provider [phone] Source Comments In the event this information is protected by the Federal Confidentiality of Alcohol and Drug AbusePatient Records regulations: The Federal rules restrict any use of the information to criminally investigate or prosecute any alcohol or drug abuse patient.[facility] Encounter Details Date Type Department Care Team (Late st Contact Info) Description 03/08/2025 Get Medical Advice Neurology Headache [facility] [address] [place] [address] Rachele Fenton, MARILEE.SET BUILDER [address] [place] [address] Nortriptalyne Social History Tobacco Use [...] 8 06/01/2023 Data from: https://www.neighborhoodatlas.medicine.[facility]/. Last address [...] 06/22/2025 2:20 PM EDT Office Visit Rheumatology [address] [place] [address] Zulema Mclean MD [address] [place] [address] 6 month follow up documented as of this encounter Visit Diagnoses Not on filedocumented in this encounter Care Teams Fertilizer Applicator Relationship Specialty Start Date End Date Jesus Camacho MD [address] [place] [address] PCP - General Family Medicine 05/12/23 Jesus Camacho MD Referring Family Medicine 01/14/21 Jesus Camacho MD [address] [place] [address] Referring Family Medicine 05/12/23 documented as of this encounter
--- OUTSIDE RECORDS SUMMARY | 2025-05-29 07:00 | XMS_ITS | Encounter Summary ---
Author Organization [facility] Address [address] [place], [place] [address] Care Team Providers Care Eggs Inspector Name Role Phone Jesus Camacho MD Unavailable [phone] Jesus Camacho MD Unavailable [phone] Jesus Camacho MD Primary Care Provider [phone] Source Comments In the event this information is protected by the Federal Confidentiality of Alcohol and Drug AbusePatient Records regulations: The Federal rules restrict any use of the information to criminally investigate or prosecute any alcohol or drug abuse patient.[facility] Reason for Referral * Consult, Test, Treat (Routine) - Closed Specialty Diagnoses / Procedures Referred By Contrahul t Referred To Contact Diagnoses Intracranial meningioma (HCC) Preop testing Procedures OFFICE/OUTPATIENT NEW HIGH MDM 60 MINUTES Jacky Pineda MD [address] [place] [address] Phone: tel: fax: Referral ID Status Reason Start Date Expiration Date V isits Requested Visits Authorized [id number] Closed PCP Requested Referral 01/13/2025 01/13/2026 1 1 * MRI/CT (Routine) - Closed Specialty Diagnoses / Procedures Referred By Tati gonzalez Referred To Contact MR IMAGING Diagnoses Intracranial meningioma (HCC) Preop testing Procedures MRI BRAIN WO/W IVCON MRI BRAIN BRAIN STEM W/O W/CONTRAST MATERIAL Jacky Pineda MD [address] [place] [address] Phone: tel: fax: MR IMAGING [address] [place] [address] Referral ID Status Reason Start Date Expiration Date V isits Requested Visits Authorized [id number] Closed Auto-Generate d Referral 02/10/2025 09/13/2025 1 1 Encounter Details Date Type Department Care Team (Late st Contact Info) Description 01/13/2025 Cure Form [facility] [address] [id number] Shakila Phillips, RN [address] [place] [address] Intracranial meningioma (HCC) (Primary Dx); Preop testing [...] lower risk 8 06/01/2023 Data from: https://www.neighborhoodatlas.medicine.[facility].edu/. Last address used for calculation [address] [...] 06/22/2025 2:20 PM EDT Office Visit Rheumatology [address] [facility] [place] [address] Zulema Mclean MD [address] [place] [address] 6 month follow up Scheduled Orders Name [...] exam in November 2015. No acute abnormalities. Clinical Services Director: PSCB Transcribe Date/Time: Feb 14 2025 10:01A Dictated by : SEAN BLOCK MD This examination was interpreted and the report reviewed and electronically signed by: SEAN BLOCK MD on Feb 14 2025 10:22AM EST Narrative 02/14/2025 10:37 AM EDT * * *Final Report* * * DATE OF EXAM: Feb 14 2025 10:37AM [facility] 0[address] - MRI BRAIN WO/W IVCON / [...] tissue mass extending into the of the search engineer or parapharyngeal spaces. The soft tissue planes of the, retropharyngeal, and prevertebral spaces are maintained. The visualized parotid glands are normal in appearance. Nasopharynx/Oropharynx: The nasopharynx and oropharynx are normal in appearance. Procedure Note Provider, [facility] - 02/14/2025 * * *Final Report* * * DATE OF EXAM: Feb 14 2025 10:37AM [facility] 0295 - MRI BRAIN WO/W IVCON / [...] tissue mass extending into the of the search engineer or parapharyngeal spaces. The soft tissue [...] exam in November 2015. No acute abnormalities. Clinical Services Director: GUANACO Transcribe Date/Time: Feb 14 2025 [...] CEPHEID GENEXPERT COVID19 02/14/2025 10:17 PM EDT [facility] Swab POSTERIOR NARES / Unknown Non Blood / Unknown 02/14/2025 8:19 AM EDT 02/14/2025 8:20 AM EDT Jacyk Pineda MD LABORATORY Final Result Performing Organization Address [facility] Co de Phone Number [facility] [address] [facility] [address] [place] [address], * TYPE AND SCREEN,30 DAY (02/14/2025 8:19 [...] BLOOD BANK Final Result Performing Organization Address City/[facility] Co de Phone Number MAIN BLOOD BANK [address] [facility] [address] [place] [address], [place] documented in this encounter Visit Diagnoses Diagnosis Intracranial meningioma (HCC)- Primary Benign neoplasm of cerebral meninges Preop testing Preoperative examination, unspecified Intracranial meningioma (HCC) Benign neoplasm of cerebral meninges Preop testing Preoperative examination, unspecified documented in this encounter Care Teams Eggs Inspector Relationship Specialty Start Date End Date Jesus Camacho MD [address] [place] [address] PCP - General Family Medicine 05/12/23 Jesus Camacho MD Referring Family Medicine 01/14/21 Jesus Camacho MD [address] [place] [address] Referring Family Medicine 05/12/23 documented as of this encounter
--- OUTSIDE RECORDS SUMMARY | 2025-05-29 07:00 | XMS_ITS | Encounter Summary ---
Author Organization [facility] Address [address] [place] [address] Care Team Providers Care Corporate Tax Preparer Name Role Phone Jesus Camacho MD Unavailable [phone] Jesus Camacho MD Unavailable [phone] Jesus Camacho MD Primary Care Provider [phone] Source Comments In the event this information is protected by the Federal Confidentiality of Alcohol and Drug AbusePatient Records regulations: The Federal rules restrict any use of the information to criminally investigate or prosecute any alcohol or drug abuse patient.[facility] Encounter Details Date Type Department Care Team (Late st Contact Info) Description 03/20/2025 Get Medical Advice [facility] [address] [id number] Jacky Pineda MD [address] [place] [address] Antibiotic Social History Tobacco Use [...] risk 8 06/01/2023 Data from: https://www.neighborhoodatlas.medicine.[facility]/. Last address [...] 06/22/2025 2:20 PM EDT Office Visit Rheumatology [address] [place] [address] Zulema Mclean MD [address] [facility] [address] [place] [address] 6 month follow up documented as of this encounter Visit Diagnoses Not on filedocumented in this encounter Care Teams Corporate Tax Preparer Relationship Specialty Start Date End Date Jesus Camacho MD [address] [place] [address] PCP - General Family Medicine 05/12/23 Jesus Camacho MD Referring Family Medicine 01/14/21 Jesus Camacho MD [address] [place] [address] Referring Family Medicine 05/12/23 documented as of this encounter
--- OUTSIDE RECORDS SUMMARY | 2025-05-29 07:00 | XMS_ITS | Encounter Summary ---
Author Organization [facility] Address [address] [place] [address] Care Team Providers Care Leather Grader Name Role Phone Jesus Camacho MD Unavailable [phone] Jesus Camacho MD Unavailable [phone] Jesus Camacho MD Primary Care Provider [phone] Source Comments In the event this information is protected by the Federal Confidentiality of Alcohol and Drug AbusePatient Records regulations: The Federal rules restrict any use of the information to criminally investigate or prosecute any alcohol or drug abuse patient.[facility] Reason for Visit * Reason Comments Refill Request Encounter Details Date Type Department Care Team (Late st Contact Info) Description 10/08/2024 Refill Rheumatology [address] [place] [address] Zulema Mclean MD [address] [facility] [address] [place] [address] Refill Request Social History Tobacco [...] is lower risk 8 06/01/2023 Data from: https://www.neighborhoodatlas.medicine.[facility]/. Last address used for calculation [...] 06/22/2025 2:20 PM EDT Office Visit Rheumatology [address] [place] [address] Zulema Mclean MD [address] [facility] [address] [place] [address] 6 month follow up documented as of this encounter Visit Diagnoses Not on filedocumented in this encounter Care Teams Leather Grader Relationship Specialty Start Date End Date Jesus Camacho MD [address] [place] [address] PCP - General Family Medicine 05/12/23 Jesus Camacho MD Referring Family Medicine 01/14/21 Jesus Camacho MD [address] [id number] Referring Family Medicine 05/12/23 documented as of this encounter
--- OUTSIDE RECORDS SUMMARY | 2025-05-29 07:00 | XMS_ITS | Encounter Summary ---
Author Organization [facility] Address [address] [place] [address] Care Team Providers Care Pen Or Pencil Assembly Machine Operator Name Role Phone Jesus Camacho MD Unavailable [phone] Jesus Camacho MD Unavailable [phone] Jesus Camacho MD Primary Care Provider [phone] Source Comments In the event this information is protected by the Federal Confidentiality of Alcohol and Drug AbusePatient Records regulations: The Federal rules restrict any use of the information to criminally investigate or prosecute any alcohol or drug abuse patient.[facility] Encounter Details Date Type Department Care Team (Late st Contact Info) Description 02/27/2025 Patient Msg Neurology [address] [place] [address] Lisa Box, VENUS Social History [...] is lower risk 8 06/01/2023 Data from: https://www.neighborhoodatlas.medicine.[facility]/. Last address used for [...] 06/22/2025 2:20 PM EDT Office Visit Rheumatology [address] [place] [address] Zulema Mclean MD [address] [facility] [address] [place] [address] 6 month follow up documented as of this encounter Visit Diagnoses Not on filedocumented in this encounter Care Teams Pen Or Pencil Assembly Machine Operator Relationship Specialty Start Date End Date Jesus Camacho MD [address] [place] [address] PCP - General Family Medicine 05/12/23 Jesus Camacho MD Referring Family Medicine 01/14/21 Jesus Camacho MD [address] [place] [address] Referring Family Medicine 05/12/23 documented as of this encounter
--- OUTSIDE RECORDS SUMMARY | 2025-05-29 07:00 | XMS_ITS | Encounter Summary ---
Author Organization [facility] Address [address] [place] [address] Care Team Providers Care Drop Tester Name Role Phone Jesus Camacho MD Unavailable [phone] Jesus Camacho MD Unavailable [phone] Jesus Camacho MD Primary Care Provider [phone] Source Comments In the event this information is protected by the Federal Confidentiality of Alcohol and Drug AbusePatient Records regulations: The Federal rules restrict any use of the information to criminally investigate or prosecute any alcohol or drug abuse patient.[facility] Encounter Details Date Type Department Care Team (Late st Contact Info) Description 04/01/2025 Get Medical Advice [facility] [address] [id number] Jacky Pineda MD [address] [place] [address] Incision Social History Tobacco Use [...] is lower risk 8 06/01/2023 Data from: https://www.neighborhoodatlas.medicine.[facility]/. Last address [...] 06/22/2025 2:20 PM EDT Office Visit Rheumatology [address] [place] [address] Zulema Mclean MD [address] [facility] [address] [place] [address] 6 month follow up documented as of this encounter Visit Diagnoses Not on filedocumented in this encounter Care Teams Drop Tester Relationship Specialty Start Date End Date Jesus Camacho MD [address] [place] [address] PCP - General Family Medicine 05/12/23 Jesus Camacho MD Referring Family Medicine 01/14/21 Jesus Camacho MD [address] [place] [address] Referring Family Medicine 05/12/23 documented as of this encounter
--- OUTSIDE RECORDS SUMMARY | 2025-05-29 07:00 | XMS_ITS | Clinical Summary ---
Author Organization [facility] Address [address] [facility] [place] [address] Care Team Providers Care Emanations Analysis Technician Name Role Phone Unavailable Primary Care Provider Unavailabl e Source Comments The following information is NOT included in Care Everywhere downloads:Psychiatric notes, ECG results, Cardiac Rehab notes, Pulmonary Function notes, data from [employer] (includes but not limited toPregnancy data,audiograms, eye exams, pre-surgical evaluation notes, well-child exam data).[facility] Active Problems Problem Noted Date Diagnosed Date [...] patient's age to complete this topic Insurance [facility] Address: [address] [place] [address]
--- OUTSIDE RECORDS SUMMARY | 2025-05-29 07:00 | XMS_ITS | Encounter Summary ---
Author Organization [facility] Address [facility] [place] [address] Care Team Providers Care Contract Lead Name Role Phone Jesus Camacho MD Unavailable [phone] Jesus Camacho MD Unavailable [phone] Jesus Camacho MD Primary Care Provider [phone] Source Comments In the event this information is protected by the Federal Confidentiality of Alcohol and Drug AbusePatient Records regulations: The Federal rules restrict any use of the information to criminally investigate or prosecute any alcohol or drug abuse patient.[facility] Encounter Details Date Type Department Care Team (Late st Contact Info) Description 03/14/2024 Get Medical Advice [facility] [address] [place] [address] Jacky Pineda MD [address] [place] [address] Need to cancel Social History [...] is lower risk 8 06/01/2023 Data from: https://www.neighborhoodatlas.medicine.[facility]/. Last address used for calculation [address] [facility] 06/01/2023 Comments No Sex and Gender [...] 06/22/2025 2:20 PM EDT Office Visit Rheumatology [address] [place] [address] Zulema Mclean MD [address] [facility] [address] [place] [address] 6 month follow up documented as of this encounter Visit Diagnoses Not on filedocumented in this encounter Care Teams Contract Lead Relationship Specialty Start Date End Date Jesus Camacho MD [address] [place] [address] PCP - General Family Medicine 05/12/23 Jesus Camacho MD Referring Family Medicine 01/14/21 Jesus Camacho MD [address] [place] [address] Referring Family Medicine 05/12/23 documented as of this encounter
--- OUTSIDE RECORDS SUMMARY | 2025-05-29 07:00 | XMS_ITS | Encounter Summary ---
Author Organization [facility] Address [address] [place] [address] Care Team Providers Care Extracting Machine Operator Name Role Phone Jesus Camacho MD Unavailable Jesus Camacho MD Unavailable [phone] Jesus Camacho MD Primary Care Provider [phone] Source Comments In the event this information is protected by the Federal Confidentiality of Alcohol and Drug AbusePatient Records regulations: The Federal rules restrict any use of the information to criminally investigate or prosecute any alcohol or drug abuse patient.[facility] Encounter Details Date Type Department Care Team (Late st Contact Info) Description 11/30/2023 Patient Msg Rheumatology [address] [place] [address] Provider, C[facility] Eye exam Social [...] Data from: https://www.neighborhoodatlas.medicine.[facility]/. Last address used for calculation [address] 06/01/2023 Comments No Sex [...] 06/22/2025 2:20 PM EDT Office Visit Rheumatology [address] [place] [address] Zulema Mclean MD [address] [facility] [address] [place] [address] 6 month follow up documented as of this encounter Visit Diagnoses Not on filedocumented in this encounter Care Teams Extracting Machine Operator Relationship Specialty Start Date End Date Jesus Camacho MD [address] [place] [address] PCP - General Family Medicine 05/12/23 Jesus Camacho MD Referring Family Medicine 01/14/21 Jesus Camacho MD [address] [place] [address] Referring Family Medicine 05/12/23 documented as of this encounter
--- OUTSIDE RECORDS SUMMARY | 2025-05-29 07:00 | XMS_ITS | Encounter Summary ---
Author Organization [facility] Address [address] [place] [address] Care Team Providers Care House Cleaner Name Role Phone Jesus Camacho MD Unavailable [phone] Jesus Camacho MD Unavailable Jesus Camacho MD Primary Care Provider [phone] Source Comments In the event this information is protected by the Federal Confidentiality of Alcohol and Drug AbusePatient Records regulations: The Federal rules restrict any use of the information to criminally investigate or prosecute any alcohol or drug abuse patient.[facility] Encounter Details Date Type Department Care Team (Late st Contact Info) Description 01/27/2024 [place] [address] Provider, Ccf Questionnaire Submission Social History Tobacco [...] is lower risk 8 06/01/2023 Data from: https://www.neighborhoodatlas.medicine.[facility].edu/. Last address used for calculation [address] [...] 06/22/2025 2:20 PM EDT Office Visit Rheumatology [address] [place] [address] Zulema Mclean MD [address] [facility] [address] [place], [place] [id number] 6 month follow up documented as of this encounter Visit Diagnoses Not on filedocumented in this encounter Care Teams House Cleaner Relationship Specialty Start Date End Date Jesus Camacho MD [address] [place] [address] PCP - General Family Medicine 05/12/23 Jesus Camacho MD Referring Family Medicine 01/14/21 Jesus Camacho MD [address] [place] [address] Referring Family Medicine 05/12/23 documented as of this encounter
--- OUTSIDE RECORDS SUMMARY | 2025-05-29 07:00 | XMS_ITS | Encounter Summary ---
Author Organization [facility] Address [address] [place] [address] Care Team Providers Care Gum Rolling Machine Operator Name Role Phone Jesus Camacho MD Unavailable [phone] Jesus Camacho MD Unavailable [phone] Jesus Camacho MD Primary Care Provider [phone] Source Comments In the event this information is protected by the Federal Confidentiality of Alcohol and Drug AbusePatient Records regulations: The Federal rules restrict any use of the information to criminally investigate or prosecute any alcohol or drug abuse patient.[facility] Encounter Details Date Type Department Care Team (Late st Contact Info) Description 01/13/2025 Get Medical Advice [facility] [address] [place] [address] Jacky Pineda MD [address] [place] [address] Surgery question Social History Tobacco [...] lower risk 8 06/01/2023 Data from: https://www.neighborhoodatlas.medicine.[facility]/. Last address used for calculation [address] [facility] 06/01/2023 Comments No Sex and [...] 06/22/2025 2:20 PM EDT Office Visit Rheumatology [address] [place] [address] Zulema Mclean MD [address] [facility] [address] [place] [address] 6 month follow up documented as of this encounter Visit Diagnoses Not on filedocumented in this encounter Care Teams Gum Rolling Machine Operator Relationship Specialty Start Date End Date Jesus Camacho MD [address] [place] [address] PCP - General Family Medicine 05/12/23 Jesus Camacho MD Referring Family Medicine 01/14/21 Jesus Camacho MD [address] [place] [address] Referring Family Medicine 05/12/23 documented as of this encounter
--- OUTSIDE RECORDS SUMMARY | 2025-05-29 07:00 | XMS_ITS | Encounter Summary ---
Author Organization [facility] Address [address] [place] [address] Care Team Providers Care Junior Account Executive Name Role Phone Jesus Camacho MD Unavailable [phone] Jesus Camacho MD Unavailable [phone] Jesus Camacho MD Primary Care Provider [phone] Source Comments In the event this information is protected by the Federal Confidentiality of Alcohol and Drug AbusePatient Records regulations: The Federal rules restrict any use of the information to criminally investigate or prosecute any alcohol or drug abuse patient.[facility] Encounter Details Date Type Department Care Team (Late st Contact Info) Description 11/30/2023 Patient Msg [facility] [address] [place] [address] Laron Lou DO, PhD [address] [facility] [address] [place] [address] Appointment Request Social History Tobacco [...] risk 8 06/01/2023 Data from: https://www.neighborhoodatlas.medicine.[facility]/. Last address used for calculation [address] [facility] 06/01/2023 Comments No Sex and [...] 06/22/2025 2:20 PM EDT Office Visit Rheumatology [address] [place] [address] Zulema Mclean MD [address] [facility] [address] [place] [address] 6 month follow up documented as of this encounter Visit Diagnoses Not on filedocumented in this encounter Care Teams Junior Account Executive Relationship Specialty Start Date End Date Jesus Camacho MD [address] [place] [address] PCP - General Family Medicine 05/12/23 Jesus Camacho MD Referring Family Medicine 01/14/21 Jesus Camacho MD [address] [place] [address] Referring Family Medicine 05/12/23 documented as of this encounter
--- OUTSIDE RECORDS SUMMARY | 2025-05-29 07:00 | XMS_ITS | Encounter Summary ---
Author Organization [facility] Address [facility] [place] [address] Care Team Providers Care Tank Truck Operator Name Role Phone Jesus Camacho MD Unavailable [phone] Jesus Camacho MD Unavailable [phone] Jesus Camacho MD Primary Care Provider [phone] Source Comments In the event this information is protected by the Federal Confidentiality of Alcohol and Drug AbusePatient Records regulations: The Federal rules restrict any use of the information to criminally investigate or prosecute any alcohol or drug abuse patient.[facility] Encounter Details Date Type Department Care Team (Late st Contact Info) Description 12/30/2024 Get Medical Advice [facility] [address] [place] [address] Jacky Pineda MD [address] [place] [address] Eye test results Social History [...] risk 8 06/01/2023 Data from: https://www.neighborhoodatlas.medicine.[facility]/. Last address [...] 06/22/2025 2:20 PM EDT Office Visit Rheumatology [address] [place] [address] Zulema Mclean MD [address] [facility] [address] [place] [address] 6 month follow up documented as of this encounter Visit Diagnoses Not on filedocumented in this encounter Care Teams Tank Truck Operator Relationship Specialty Start Date End Date Jesus Camacho MD [address] [place] [address] PCP - General Family Medicine 05/12/23 Jesus Camacho MD Referring Family Medicine 01/14/21 Jesus Camacho MD [address] [id number] Referring Family Medicine 05/12/23 documented as of this encounter
--- OUTSIDE RECORDS SUMMARY | 2025-05-29 07:00 | XMS_ITS | Encounter Summary ---
Author Organization [facility] Address [facility] [place] [address] Care Team Providers Care Quality Assurance Tech Name Role Phone Jesus Camacho MD Unavailable [phone] Jesus Camacho MD Unavailable Jesus Camacho MD Primary Care Provider [phone] Source Comments In the event this information is protected by the Federal Confidentiality of Alcohol and Drug AbusePatient Records regulations: The Federal rules restrict any use of the information to criminally investigate or prosecute any alcohol or drug abuse patient.[facility] Encounter Details Date Type Department Care Team (Late st Contact Info) Description 01/03/2025 Get Medical Advice [facility] [address] [place] [address] Jacky Pineda MD [address] [place] [address] Testing Social History Tobacco Use [...] Data from: https://www.neighborhoodatlas.medicine.[facility]/. Last address used for calculation [address] [...] 06/22/2025 2:20 PM EDT Office Visit Rheumatology [address] [place] [address] Zulema Mclean MD [address] [facility] [address] [place] [address] 6 month follow up documented as of this encounter Visit Diagnoses Not on filedocumented in this encounter Care Teams Quality Assurance Tech Relationship Specialty Start Date End Date Jesus Camacho MD [address] [place] [address] PCP - General Family Medicine 05/12/23 Jesus Camacho MD Referring Family Medicine 01/14/21 Jesus Camacho MD [address] [place] [address] Referring Family Medicine 05/12/23 documented as of this encounter
--- OUTSIDE RECORDS SUMMARY | 2025-05-29 07:00 | XMS_ITS | Encounter Summary ---
Author Organization [facility] Address [facility] [place] [address] Care Team Providers Care Mental Hygienist Name Role Phone Jesus Camacho MD Unavailable [phone] Jesus Camacho MD Unavailable [phone] Jesus Camacho MD Primary Care Provider [phone] Source Comments In the event this information is protected by the Federal Confidentiality of Alcohol and Drug AbusePatient Records regulations: The Federal rules restrict any use of the information to criminally investigate or prosecute any alcohol or drug abuse patient.[facility] Encounter Details Date Type Department Care Team (Late st Contact Info) Description 12/14/2024 Get Medical Advice [facility] [address] [place] [address] Jacky Pineda MD [address] [place] [address] Eye test Social History Tobacco [...] is lower risk 8 06/01/2023 Data from: https://www.neighborhoodatlas.medicine.[facility]/. Last [facility] used for calculation [address] [facility]/01/[facility] Comments No Sex and [...] 06/22/2025 2:20 PM EDT Office Visit Rheumatology [address] [place] [address] Zulema Mclean MD [address] [facility] [address] [place] [address] 6 month follow up documented as of this encounter Visit Diagnoses Not on filedocumented in this encounter Care Teams Mental Hygienist Relationship Specialty Start Date End Date Jesus Camacho MD [address] [place] [address] PCP - General Family Medicine 05/12/23 Jesus Camacho MD Referring Family Medicine 01/14/21 Jesus Camacho MD [address] [place] [address] Referring Family Medicine 05/12/23 documented as of this encounter
--- OUTSIDE RECORDS SUMMARY | 2025-05-29 07:01 | XMS_ITS | Patient Health Record ---
Author Organization [facility] in [place] Address [address] [place] [address] Care Team Providers Care Donor Relations Officer Name Role Phone Eric Camacho Primary Care Provider Allergies No Known Allergies Results Component Value Reference Range Notes Mammogram Reviewed date:09/16/2024 02:53:56 PM Interpretation:undefined Performing Lab: Notes/Report: undefined CBC AUTO DIFF Reviewed date:02/02/2025 08:06:47 PM Interpretation: Performing Lab: Notes/Report: [facility] , White Blood Count 8.3 4.0-11.0 10 [...] 3/uL Performing Lab: see note ML - [facility] FREE T3 Reviewed date:02/02/2025 08:06:47 PM Interpretation: Performing Lab: Notes/Report: [facility] , Free T3 3.02 2.18-3.98 pg/mL Performing Lab: see note ML - [facility] LB IRON Reviewed date:02/02/2025 08:06:47 PM Interpretation: Performing Lab: Notes/Report: [facility] , Iron 43.0 50.0-170.0 ug/dL Performing Lab: see note ML - [facility] PROF 14(COMP METB) Reviewed date:02/02/2025 08:06:47 PM Interpretation: Performing Lab: Notes/Report: [facility] , Sodium 140 136-145 mmol/L Potassium 4.5 3.5-5.1 mmol/L Chloride 104 98-107 mmol/L Carbon Dioxide 24.3 21.0-32.0 mmol/L Anion Gap 16.2 Glucose 101 74-106 mg/dL Blood Urea Nitrogen 18.0 7.0-18.0 mg/dL Creatinine 1.36 0.55-1.02 mg/dL Estimated GFR ( Vera 50 >=60 mL/min/1.73m 2 Estimated GFR (Non- Kylah 42 >=60 mL/min/1.73m 2 BUN Creatinine Ratio 13.2 Calcium 8.9 8.5-10.1 mg/dL Bilirubin Total 0.3 0.2-1.0 mg/dL Aspartate Amino Transferase 16 15-37 U/L Alanine Aminotransferase 35 14-59 U/L Alkaline Phosphatase 52 46-116 U/L Total Protein 6.8 6.4-8.2 g/dL Albumin Level 3.8 3.4-5.0 g/dL Globulin 3.0 Albumin Globulin Ratio 1.3 Performing Lab: see note ML - [facility] LB T4 Reviewed date:02/02/2025 08:06:47 PM Interpretation: Performing Lab: Notes/Report: [facility] , T4 Thyroxine 9.20 4.80-13.90 ug/dL Performing Lab: see note - [facility] LB TSH Reviewed date:02/02/2025 08:06:48 PM Interpretation: Performing Lab: Notes/Report: [facility] , Thyroid Stimulating Hormone 2.619 0.358-3.740 u IU/mL Performing Lab: see note - [facility] VITAMIN D 25 [place] Reviewed date:02/02/2025 08:06:48 PM Interpretation: Performing Lab: Notes/Report: [facility] , Vitamin D 32.7 >100 ng/mL Potential Toxicity 30-100 ng/mL Vit D sufficient <20 ng/mL Vit D deficient 20-<30 ng/mL Vit D insufficient Performing Lab: see note - [facility] PROF CHEM 8 (BAS METB) Reviewed date:02/08/2025 07:39:28 PM Interpretation: Performing Lab: Notes/Report: [facility] , Sodium 140 136-145 mmol/L Potassium 4.3 3.5-5.1 mmol/L Chloride 103 98-107 mmol/L Carbon Dioxide 27.9 21.0-32.0 mmol/L Anion Gap 13.4 Glucose 91 74-106 mg/dL Blood Urea Nitrogen 17.0 7.0-18.0 mg/dL Creatinine 0.85 0.55-1.02 mg/dL Estimated GFR ( Vera >60 >=60 mL/min/1.73m 2 Estimated GFR (Non- Kylah >60 >=60 mL/min/1.73m 2 BUN Creatinine Ratio 20.0 Calcium 9.2 8.5-10.1 mg/dL Performing Lab: see note - [facility] LB HCG Qualitative* Reviewed date:07/18/2024 07:33:11 PM Interpretation: Performing Lab: Notes/Report: [facility] , HCG Qualitative NEGATIVE NEGATIVE Performing Lab: see note - [facility] XR thoracic spine 2V Reviewed date:05/17/2025 06:08:33 PM Interpretation: Performing Lab: Notes/Report: Source Facility: [place] [address] [address] XRay Report Signed Patient: KOURTNEY PICHARDO MR#: [id number] : 1975 Acct:[id number] Age/Sex: 49 / F ADM Date: 05/17/25 Loc: RAD Attending Dr: Amanda Starr NP Ordering Physician: Amanda Starr NP Date of Service: 05/17/25 Procedure(s): XR thoracic spine 2V Accession Number(s): [id number] cc: Amanda Starr NP; Jesus Camacho M.D. The [place] [address] Patient Name: KOURTNEY PICHARDO MRN: [id number] date: 1975 Sex: F Assigned Patient Location: [facility] Current Patient Location: [facility] Accession/Order Number: [id number] Exam Date: 05/17/2025 14:05 Report Date: 05/17/2025 15:07 At the request of: AMANDA STARR NP Procedure: XR thoracic spine 2V THORACIC SPINE - - 2 views CLINICAL HISTORY: Thoracic Radiculopathy COMPARISON: None FINDINGS: Bones are grossly demineralized. Vertebral body heights appear maintained. Endplate degenerative changes. Mild scoliosis. Pedicles appear intact. XR/XR thoracic spine 2V IMPRESSION: MILD SCOLIOSIS WITH DEGENERATIVE CHANGE. NO ACUTE BONY PROCESS IS SEEN. Impression dictated by: Lukasz Santana Jr.OEstefany 05/17/2025 3:07 PM Dictation Location: [place] [address] Electronically authenticated by: [id number] Y Date: 05/17/2025 15:07 Dictated By: Rainer Martinez M.D. Signed By: 05/17/25 1510 DD/ 1507 TD/TT: Dairy Frozen Manager: ALISSON-19, Flu A+B IH Reviewed date:02/02/2025 08:06:48 PM [...] UROBILINOGEN Neg NITRITE Neg LEUKOCYTE ESTERASE Neg Reason For Referral No Information Medications Medication SIG (Take, Route, Frequency, Duration) Notes Start Date End Date Status Blood Glucose Test - Use 1 strip In Vitr o daily; Duration: 90 days 03/06/2023 Active Dexlansoprazole 60 MG TAKE 1 CAPSULE [...] ADRIAN TH EVERY DAY; Duration: 90 Active Budesonide 1 MG/2ML 1 mL Inhalation Once a day DX J44.9; Duration: 90 days Active Carafate 1 GM 1 tablet on an empty stomach Orally Twice a day Active Cetirizine HCl 10 MG 1 tablet Orally Onc e a day; Duration: 30 days 05/04/2024 Active Chlorzoxazone 500 MG 1 tablet as needed Orally bid; Duration: 30 days 05/09/2024 Active Pioglitazone HCl 15 [...] a day; Duration: 19 days 03/28/2025 Active Fioricet 50-300-40 MG 1 capsule as neede d Orally every 4 hrs 03/10/2024 Active metFORMIN HCl 500 mg TAKE 2 TABLETS BY MOUTH TWICE DAILY; Duration: 30 Active Myrbetriq 50 MG 1 tablet Orally Once a day; Duration: 30 days 06/22/2024 Active Nebulizer Mask and Tubing-Adult - use daily with neb solution; Duration: 365 days DX j44.9 DX:j44.9 05/20/2024 Active Ondansetron HCl 4 MG TAKE 1 TABLET BY [facility] EVERY 6 HOURS NEEDED FOR NAUSEA/VOMITING 30 DAYS; Duration: 30 Active Simvastatin 20 MG 1 tablet in the evening Orally Once a day; Duration: 30 days Active Glycopyrrolate 1 MG 1 tablet Orally Once a day Active Ibuprofen 800 MG 1 tablet with food o r milk as needed Orally every 8 hrs; Duration: 25 days Active Levothyroxine Sodium 50 MCG TAKE 1 TABLE T BY MOUTH EVERY DAY IN THE MORNING ON EMPTY STOMACH FOR 30 DAYS; Duration: 30 days Active Lodine 400 MG 1 tablet with food Orally Twice a day Active Lubiprostone 24 MCG TAKE 1 CAPSULE BY MOUTH TWICE A DAY; Duration: 90 Active Ipratropium-Albuterol 0.5-2.5 (3) MG/3ML USE 1 VIAL INHALATION EVERY 6 HOURS NEEDED; Duration: 30 Active Lactulose 20 GM/30ML 30 ml Orally Once a day - up to bid; Duration: 30 days Active lamoTRIgine 200 MG TAKE 3 TABLETS BY MOUTH ONCE DAILY; Duration: 90 Active Lancets 33G - Use 1 lancet to chec k glucose once daily; Duration: 90 days 03/06/2023 Active Albuterol Sulfate (2.5 MG/3ML) 0.083% 3 mL as needed Inhalation every 6 hrs; Duration: 30 days Active Blood Glucose Monitor System w/Device Use Device to check glucose every day; Duration: 90 days 03/06/2023 Active Immunizations Vaccine Route Administration Date Status Comme nts Flu, Flucelvax (3887-6172) 34028 6 mos +, single-dose syringe IM Intramuscular [...] Problem Status W/U Status Risk Notes Problem Iron deficiency anemia (90854327) Iron deficiency anemia, unspecified (D50.9) Active confirmed Problem Hypothyroidism (41818517) Hypothyroidism, unspecified (E03.9) Active confirmed Problem Chronic obstructive pulmonary disease (55905371) Chronic obstructive pulmonary disease, unspecified (J44.9) Active confirmed Problem Benign neoplasm of meninges (867123388) Benign neoplasm of meninges, unspecified (D32.9) Active confirmed Problem Non-toxic single thyroid nodule (526034051) 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) Active confirmed Problem Brachial plexus disorder (7115129) Brachial plexus disorders (G54.0) Active confirmed Problem Degeneration of cervical intervertebral disc (26110102) Other cervical disc degeneration, unspecified cervical region (M50.30) Active confirmed Problem Degeneration of lumbar intervertebral disc (83443435) Other intervertebral disc degeneration, lumbar region (M51.36) Active confirmed Problem Fibromyalgia (674673710) Fibromyalgia (M79.7) Active confirmed Problem Right upper quadrant pain (530194620) Right upper quadrant pain (R10.11) Active confirmed Problem Nausea (645498656) Nausea (R11.0) Active confir med Problem Vomiting (445383144) Vomiting, unspecified (R11.10) Active confirmed Problem Fatigue (72365960) Fatigue (R53.83) Active conf irmed Problem Hypertension (85660140) Hypertension (I10) Active confirmed Problem COPD - Chronic obstructive pulmonary disease (81774418) COPD (chronic obstructive pulmonary disease) (J44.9) Active confirmed Problem Gastroesophageal reflux disease (866765917) GERD (gastroesophageal reflux disease) (K21.9) Active confirmed Problem Obstructive sleep apnea syndrome (59727719) MAREK (obstructive sleep apnea) (G47.33) Active confirmed Problem Eczema (56578201) Eczema (L30.9) Active confirm ed Problem Epigastric pain (70522497) Epigastric abdominal pain (R10.13) Active confirmed Problem Vitamin D deficiency (60717614) Vitamin D deficiency (E55.9) Active confirmed Problem Disorder of lumbar disc (023342130) Lumbar disc disease (M51.9) Active confirmed Problem Constipation (05168473) Constipation (K59.00) Active confirmed Problem Well adult (524930286) Well adult (Z00.00) Active confirmed Problem Solitary nodule of lung (556124550) Lung nodule (R91.1) Active confirmed Problem Paresthesia (44527954) Paresthesia (R20.2) Active confirmed Problem Benign neoplasm of cerebral meninges (77745837) Meningioma (D32.9) Active confirmed Problem Fibromyalgia (740233577) Fibromyalgia (M79.7) Active confirmed Problem Tension headache (305266253) Tension headache (G44.209) Active confirmed Problem Bursitis of left shoulder (730535211617532) Bursitis of shoulder, left (M75.52) Active confirmed Problem Excessive sweating (54140005) Excessive sweating (R61) Active confirmed Problem Chronic obstructive pulmonary disease (93015961) Advanced COPD (J44.9) Active confirmed Problem Mixed anxiety and depressive disorder (291137357) Anxiety and depression (F41.9) Active confirmed Problem Ankle edema (67643009) Ankle edema (M25.473) Active confirmed Problem Abnormal PFTs (R94.2) Active confirmed Problem Irritable bowel syndrome (46754689) Irritable bowel syndrome (IBS) (K58.9) Active confirmed Problem Type II diabetes mellitus without complication (181701267) Controlled type 2 diabetes mellitus (E11.9) Active confirmed Problem Obese class III (finding) (001053412) Obesity, class 3 (E66.813) Active confirmed Vital Signs Heart Rate 83 /min 03/20/2025 Temperature 98.5 degrees Fahrenheit 09/05/2024 Oximetry 98 % 03/20/2025 Blood pressure diastolic 78 mm Hg 05/25/2025 Height 65.5 in 05/25/2025 Blood pressure systolic 138 mm Hg 05/25/2025 Weight 252.0 lbs 05/25/2025 BMI 41.29 kg/m2 05/25/2025 Procedures Procedure Date Ordered Date Performed Result Body Sit e CARDIO Echocardiogram 05/25/2025 N/A Encounters Encounter Location Date Provider Diagnosis [facility] [address] [place] [address] 06/22/2024 Eric Hoy Dysuria R30.0 ; Flight Radio Operator vanessa obstructive pulmonary disease, unspecified J44.9 and Lumbar disc disease M51.9 [facility] [address] [place] [address] 08/10/2024 Eric Camacho COPD (chronic obstructive pulmonary disease) J44.9 [facility] [address] [facility] [place] [address] 09/05/2024 Eric Smithy Acute bronchitis, unspecified organism J20.9 [facility] [address] [facility] [place] [address] 02/02/2025 Eric Smithy Benign neoplasm of meninges, unspecified D32.9 ; Obesity, class 3 E66.813 ; Chronic obstructive pulmonary disease, unspecified J44.9 ; Advanced COPD J44.9 and COPD (chronic obstructive pulmonary disease) J44.9 [facility] [address] [facility] [place] [address] 03/20/2025 Eric Camacho Chronic obstructive pulmonary disease, unspecified J44.9 [facility] [address] [facility] [place] [address] 05/25/2025 Eric Camacho Well adult Z00.00 ; Vitamin D deficiency E55.9 ; Nontoxic single thyroid nodule E04.1 and Murmur R01.1 [facility] [address] [facility] [place] [address] 06/23/2024 Eric Camacho Hypertension I10 [facility] [address] [facility] [place] [address] 07/19/2024 Eric Camacho [facility] [address] [facility] [place] [address] 08/18/2024 Eric Camacho [facility] [address] [facility] [place] [address] 09/01/2024 Eric Camacho [facility] [address] [facility] [place] [address] 09/05/2024 Eric Camacho [facility] [address] [facility] [place] [address] 09/19/2024 Eric Camacho [facility] [address] [facility] [place] [address] 11/14/2024 Eric Camacho [facility] [address] [facility] [place] [address] 12/12/2024 Eric Camacho Iron deficiency ane alexandra, unspecified D50.9 [facility] [address] [facility] [place] [address] 12/14/2024 Eric Camacho [facility] [address] [facility] [place] [address] 02/02/2025 Eric Camacho Abnormal renal func tion N28.9 [facility] [address] [facility] [place] [address] 02/08/2025 Eric Camacho [facility] [address] [facility] [place] [address] 02/08/2025 Eric piedad [facility] [address] [facility] [place] [address] 02/14/2025 Eric Camacho [facility] [address] [facility] [place] [address] 02/16/2025 Eric Camacho [facility] [address] [facility] [place] [address] 02/16/2025 Eric Camacho [facility] [address] [facility] [place] [address] 02/18/2025 Eric Janice [facility] [address] [facility] [place] [address] 03/21/2025 Eric Camacho [facility] [address] [facility] [place] [address] 03/28/2025 Eric piedad [facility] [address] [facility] [place] [address] 05/28/2025 Eric Camacho [facility] [address] [facility] [place] [address] 02/08/2025 Eric Camacho Hypotension I95.9 Assessments Encounter Date Diagnosis (ICD Code) Assessment Notes Treatment Notes Treatment Clinical Notes Section Notes 06/22/2024 Dysuria (ICD-10 - R30.0) 06/22/2024 Chronic obstructive pulmonary disease, unspecified (ICD-10 - J44.9) 08/10/2024 COPD (chronic obstructive pulmonary disease) (ICD-10 - J44.9) 09/05/2024 Acute bronchitis, unspecified organism (ICD-10 - J20.9) Rest and drink more liquids, especially water. You may use a humidifier or vaporizer to help keep the drainage moist. Yslg-ymo-visrjir Nasal Saline may help the stuffy and runny nose. Use Ibuprofen and or Tylenol as needed for fever, chills, body aches or pain. Children 5 years old should not be given eufa-gvo-lfuxhuy cough and cold medications such as guaifenesin and dextromethorphan. If you're over age 5, you may try hrin-rje-zvlsrxe cold medications such as guaifenesin and dextromethorphan, [...] obstructive pulmonary disease, unspecified (ICD-10 - J44.9) 05/25/2025 Well adult (ICD-10 - Z00.00) 06/23/2024 Hypertension (ICD-10 - I10) 12/12/2024 Iron deficiency anemia, unspecified (ICD-10 - D50.9) 02/02/2025 Abnormal renal function (ICD-10 - N28.9) 05/25/2025 Vitamin D deficiency (ICD-10 - E55.9) 05/25/2025 Nontoxic single thyroid nodule (ICD-10 - E04.1) 02/02/2025 Chronic obstructive pulmonary disease, unspecified (ICD-10 - J44.9) 06/22/2024 Lumbar disc disease (ICD-10 - M51.9) comnpleted paperworlk for houseing 02/02/2025 Advanced COPD (ICD-10 - J44.9) 02/02/2025 COPD (chronic obstructive pulmonary disease) (ICD-10 - J44.9) 05/25/2025 Murmur (ICD-10 - R01.1) Plan Of Treatment Pending Test Test Name Order Date GLUCOSE - IN OFFICE 02/12/2023 CMP (COMPLETE METABOLIC PANEL) 4 CMP (COMPLETE METABOLIC PANEL) 3 HEMOGLOBIN A1C (GLYCO) 05/15/2023 HEMOGLOBIN A1C (GLYCO) 04/14/2024 HEMOGLOBIN A1C (GLYCO) 05/25/2025 IRON, TOTAL 05/25/2025 IRON, TOTAL 04/14/2024 IRON, TOTAL 02/02/2025 LIPID PANEL (CHOL/TRIG/HDL/LDL) 04/14/20 24 LIPID PANEL (CHOL/TRIG/HDL/LDL) 05/25/20 25 LIPID PANEL (CHOL/TRIG/HDL/LDL) 05/15/20 23 CBC WITH DIFF 05/15/2023 CBC WITH DIFF 04/14/2024 VITAMIN D, 25 LEVEL (TOTAL) 04/14/2024 VITAMIN D, 25 LEVEL (TOTAL) 05/25/2025 VITAMIN D, 25 LEVEL (TOTAL) 02/02/2025 MRI Brain w/wo contrast * 04/10/2023 NUC MED Hida with Ejection Fraction * CARDIO Echocardiogram 05/25/2025 Insulin Level 05/25/2025 Insulin Level 04/14/2024 BMP - Basic Metabolic Panel 02/02/2025 CBC W/AUTO DIFF 11/09/2023 STOOL OCCULT BLOOD 05/15/2023 US Renal and Bladder 02/02/2025 CBC AUTO DIFF 12/12/2024 CBC AUTO DIFF 04/10/2023 FERRITIN 04/10/2023 FERRITIN 12/12/2024 FERRITIN 11/09/2023 FERRITIN 05/20/2023 IRON 05/20/2023 IRON 11/09/2023 IRON 12/12/2024 IRON 04/10/2023 MAGNESIUM 05/25/2025 PHOSPHORUS 05/25/2025 VIT B12 AND FOLATE 05/25/2025 VIT B12 AND FOLATE 04/14/2024 VITAMIN D 25 [place] 05/25/2025 MRI CSPINE WO CON 01/15/2024 MRI LSPINE WO CON 01/15/2024 US ABD 02/16/2023 US THYROID 05/25/2025 US THYROID 02/09/2024 XR DEXA BONE DENSITY 05/25/2025 THYROID PANEL (T4/TSH/FREE T3) 5 THYROID PANEL (T4/TSH/FREE T3) 5 THYROID PANEL (T4/TSH/FREE T3) 4 THYROID PANEL (T4/TSH/FREE T3) 4 THYROID PANEL (T4/TSH/FREE T3) 3 MM screening mammo BI 05/25/2025 CMP (COMP MET PICKETT) w/eGFR CKD-EPI 2024 CMP (COMP MET PICKETT) w/eGFR CKD-EPI 2024 CBC WITH DIFF 02/02/2025 CBC WITH DIFF 05/25/2025 Insurance Providers Payer Name Payer Address Payer Phone Subscriber Number Group Number Insured Name Patient Relationship to Insured Coverage Start Date Coverage End Date [employer] DUAL ADV PRIMARY MEDICARE [address] [place] [address] [id number] Kourtney Eli Self - patient is the insured [place] 2ND INS [address] [place], [place] [id number] Kourtney Eli Self - patient is the insured [place] [address] [place] [address] [phone] [id number] Kourtney Eli Self - patient is the [...] and depression F41.9 Surgical History Surgery Date(Month/Year) Rt Radius core Decompression with Dr. Afsaneh dunbar Carpal Tunnel x2 on right, x1 left Cubital Tunnel, right 2020 Right rib removal Repair of bones in left arm d/t fracture Left C4-5, 5-6 radiofrequency ablation 1 09/17/2023 craniotomy 02/20/25 C5-C6 transforaminal epidural steroid in jection 04/24/2025 Appendectomy
--- OUTSIDE RECORDS SUMMARY | 2025-05-29 07:01 | XMS_ITS | Encounter Summary ---
Author Organization [facility] Address [facility] [place] [address] Care Team Providers Care Helper Coordinator Name Role Phone Jesus Camacho MD Unavailable [phone] Jesus Camacho MD Unavailable [phone] Jesus Camacho MD Primary Care Provider [phone] Source Comments In the event this information is protected by the Federal Confidentiality of Alcohol and Drug AbusePatient Records regulations: The Federal rules restrict any use of the information to criminally investigate or prosecute any alcohol or drug abuse patient.[facility] Reason for Visit * Reason Comments Refill Request Encounter Details Date Type Department Care Team (Late st Contact Info) Description 05/17/2025 Refill Neurology Headache [facility] [address] [place] [address] Rachele Fenton APRN.STOCK PITCHER [address] [place] [address] Refill Request Social History Tobacco [...] is lower risk 8 06/01/2023 Data from: https://www.neighborhoodatlas.medicine.[facility]/. Last address used for calculation [address] 06/01/2023 Comments No Sex and Gender Information Value Date Recorded Sex Assigned at Female 02/25/2021 11:09 PM EDT Legal Sex Female 8:01 AM EST Gender Identity Female 02/25/2021 11:09 PM EDT Sexual Orientation Straight 02/25/2021 11 :09 PM EDT documented as of this encounter Miscellaneous Notes * Telephone Encounter - Gifty Martinez - 05/18/2025 3:47 PM EDT Physician: Eliceo Call from pharmacy requesting refill. Please E-Scribe Last OV: with Eliceo Future OV: Not Scheduled. Requested Prescriptions Pending Prescriptions Disp Refills methocarbamol (ROBAXIN) 500 mg tablet [Pharmacy Med Name: METHOCARBAMOL 500 MG TABLET] 45 tablet 2 Sig: TAKE 1 TABLET BY MOUTH TWICE A DAY NEEDED Pharmacy Name: [facility] documented in this encounter Plan of Treatment Upcoming Encounters Date Type Department Care Team (Late st Contact Info) Description 06/22/2025 2:20 PM EDT Office Visit Rheumatology [address] [place] [address] Zulema Mclean MD [address] [place] [address] 6 month follow up documented as of this encounter Visit Diagnoses Diagnosis Chronic daily headache Headache documented in this encounter Care Teams Helper Coordinator Relationship Specialty Start Date End Date Jesus Camacho MD [address] [place] [address] PCP - General Family Medicine 05/12/23 Jesus Camacho MD Referring Family Medicine 01/14/21 Jesus Camacho MD [address] [place] [address] Referring Family Medicine 05/12/23 documented as of this encounter
--- OUTSIDE RECORDS SUMMARY | 2025-05-29 07:01 | XMS_ITS | Encounter Summary ---
Author Organization [facility] Address [facility] [place] [address] Care Team Providers Care Chemical Waste Management Technician Name Role Phone Jesus Camacho MD Unavailable [phone] Jesus Camacho MD Unavailable [phone] Jesus Camacho MD Primary Care Provider [phone] Source Comments In the event this information is protected by the Federal Confidentiality of Alcohol and Drug AbusePatient Records regulations: The Federal rules restrict any use of the information to criminally investigate or prosecute any alcohol or drug abuse patient.[facility] Encounter Details Date Type Department Care Team (Late st Contact Info) Description 12/01/2024 Get Medical Advice [facility] [address] [place] [address] Jacky Pineda MD [address] [place] [address] Surgery Social History Tobacco Use [...] risk 8 06/01/2023 Data from: https://www.neighborhoodatlas.medicine.[facility]/. Last address used for calculation [...] 06/22/2025 2:20 PM EDT Office Visit Rheumatology [address] [place] [address] Zulema Mclean MD [address] [facility] [address] [place] [address] 6 month follow up documented as of this encounter Visit Diagnoses Not on filedocumented in this encounter Care Teams Chemical Waste Management Technician Relationship Specialty Start Date End Date Jesus Camacho MD [address] [place] [address] PCP - General Family Medicine 05/12/23 Jesus Camacho MD Referring Family Medicine 01/14/21 Jesus Camacho MD [address] [place] [address] Referring Family Medicine 05/12/23 documented as of this encounter
--- OUTSIDE RECORDS SUMMARY | 2025-05-29 07:01 | XMS_ITS | Patient Health Record ---
Author Organization [facility] Address [address] [place] [address] Care Team Providers Care Audit Partner Name Role Phone Jesus Camacho Primary Care Provider [facility] Etienne Urbina Unavailable [phone] Reason For Referral No Information Problems Problem Type SNOMED Code ICD Code Onset Dates Problem Status W/U Status Risk Notes Problem 09313368 Radiculopathy, cervical region (M54.12) Active confirmed Problem 71054937 Spinal stenosis, cervical region (M48.02) Active confirmed Problem 646721999 Spinal stenosis, lumbosacral region (M48.07) Active confirmed Problem 54679481 Other intervertebral disc displacement, 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) Active confirmed Problem 91570552 Other intervertebral disc degeneration, lumbosacral region (M51.37) Active confirmed Problem 953342078 Other cervical d isc displacement at C5-C6 level (M50.222) Active confirmed Problem 176986166 Other cervical d isc displacement at C6-C7 level (M50.223) Active confirmed Plan Of Treatment Pending Test Test Name Order Date Lumbar spine, 4v flex ext - 99670 2023 Cervical spine,ap,lat,flex,ext - 23895 0 02/19/2024 SFS - Lumbar Spine PT [...] Date Coverage End Date [place] [phone] [id number] DEON BUSTAMANTE Self - [facility] [address] [place] [address] [id number] DEON BUSTAMANTE Self - patient is the insured 4
--- OUTSIDE RECORDS SUMMARY | 2025-05-29 07:01 | XMS_ITS | Encounter Summary ---
Author Organization [facility] Address [address] [place] [address] Care Team Providers Care Requisition Approver Name Role Phone Jesus Camacho MD Unavailable [phone] Jesus Camacho MD Unavailable [phone] Jesus Camacho MD Primary Care Provider [phone] Source Comments In the event this information is protected by the Federal Confidentiality of Alcohol and Drug AbusePatient Records regulations: The Federal rules restrict any use of the information to criminally investigate or prosecute any alcohol or drug abuse patient.[facility] Reason for Visit * Reason Comments Refill Request Encounter Details Date Type Department Care Team (Late st Contact Info) Description 05/15/2025 Refill Rheumatology [address] [place] [address] Zulema Mclean MD [address] [place] [address] Refill Request Social History Tobacco [...] risk 8 06/01/2023 Data from: [email or web address] Last address used for [...] Telephone Encounter - Zulema Mclean MD - 05/17/2025 4:28 PM EDT The following approved medication requests have been transmitted electronically. Requested Prescriptions Signed Prescriptions Disp Refills DULoxetine DR (CYMBALTA) 30 mg capsule 90 capsule 2 Sig: TAKE 1 CAPSULE BY MOUTH EVERY DAY ALONG WITH THE 60MG CAPSULE TO EQUAL 90MG A DAY Authorizing Provider: ZULEMA MCLEAN MD * Telephone Encounter - [place] [...] Visit Type Date Time Department [facility] MEDICAL 06/22/2025 2:20 PM [facility] REJ Last Ophthalmology Check for Plaquenil [...] 06/22/2025 2:20 PM EDT Office Visit Rheumatology [address] [place] [address] Zulema Mclean MD [address] [place] [address] 6 month follow up documented as of this encounter Visit Diagnoses Diagnosis Fibromyalgia Mylagia and myositis, unspecified documented in this encounter Care Teams Requisition Approver Relationship Specialty Start Date End Date Jesus Camacho MD [address] [place] [address] PCP - General Family Medicine 05/12/23 Jesus Camacho MD Referring Family Medicine 01/14/21 Jesus Camacho MD [address] [place] [address] Referring Family Medicine 05/12/23 documented as of this encounter
--- OUTSIDE RECORDS SUMMARY | 2025-05-29 07:01 | XMS_ITS | CCD ---
Author Organization [facility] Care Team Providers Care Rigger Name Role Phone PHYSICIAN, DEFAULT Unavailable Unavailable [...] Provider MD Sammie Gonzalez Attending Provider Hank ([facility]), MARILEE Platt Attending Provider Sammie Gonzalez MD Unavailable Sammie Gonzalez MD Primary Care Provider Sammie Gonzalez MD Unavailable Sammie Gonzalez MD Primary Care Provider Sammie Gonzalez MD Primary Care Provider MD Sammie Gonzalez Primary Care Provider MD Sammie Gonzalez Attending Provider MD Zeinab Wood Attending Provider PINEDAFRANKLO F Referring Unavailable SAMMIE GONZALEZ Primary Care Unavailable PINEDAFRANKLO F Referring Unavailable SAMMIE GONZALEZ Primary Care Unavailable MD Sammie Gonzalez Primary Care Provider MD Sammie Gonzalez Attending Provider MD Sammie Gonzalez Primary Care Provider MD Sammie Gonzalez Attending Provider MD Sammie Gonzalez Primary Care Provider MD Sammie Gonzalez Attending Provider Sammie Gonzalez MD Primary Care Provider Smamie Gonzalez MD Primary Care Provider Self, Referral Attending Provider Unavailable Zeinab Wood MD Attending Provider Mk Broderick MD Attending Provider Sammie Gonzalez MD Primary Care Provider Self, Referral Attending Provider Unavailable Zeinab Wood MD Attending Provider Mk Broderick MD Attending Provider Sammie Gonzalez MD Attending Provider Sammie Gonzalez MD Primary Care Provider Elyssa Gomes MD Attending Provider Sammie Gonzalez MD Primary Care Provider Sammie Gonzalez MD Primary Care Provider Elyssa Gomes MD Attending Provider Sammie Gonzalez MD Attending Provider Hank [facility] Zeinab LANDEROS Unavailable Unavaila ble ERIK PINEDA Attending Unavailable HOY, SAMMIE M Primary Care Unavailable HOY, SAMMIE M Primary Care Unavailable MEHUL MARTIN Referring Unavailable PINEDA, ERIK F Referring Unavailable HOY, SAMMIE M Primary Care Unavailable NINAZEINAB CORTEZ Referring Unavailable HOY, SAMMIE M Primary Care Unavailable HOY, SAMMIE M Primary Care Unavailable PINEDA, ERIK F Admitting Unavailable PINEDA, ERIK F Attending Unavailable PINEDA, ERIK F Referring Unavailable HOY, SAMMIE M Primary Care Unavailable HOY, SAMMIE M Primary Care Unavailable RACHELE FENTON Attending Unavailable ZEINAB WOOD Attending Unavailable HOY, SAMMIE M Primary Care Unavailable NINAZEINAB CORTEZ Attending Unavailable HOY, SAMMIE M Primary Care Unavailable HOY, SAMMIE M Primary Care Unavailable RACHELE FENTON Attending Unavailable HOY, SAMMIE M Primary Care Unavailable PINEDA, ERIK F Attending Unavailable HOY, SAMMIE M Primary Care Unavailable HOY, SAMMIE M Primary Care Unavailable HOY, SAMMIE M Primary Care Unavailable HEATHER MOY Attending Unavailable Darrick MCGHEE, Andrius Garcia Attending Unavailable Darrick MCGHEE, Andrius Vytcarolee Attending Unavailable Darrick MCGHEE, Andrius Vytautas Attending Unavailable Darrick MCGHEE, Andrius Vytautas Attending Unavailable Darrick MCGHEE, Andrius Vytautas Attending Unavailable Darrick MCGHEE, Andrius Vytautas Attending Unavailable SHARON WILBURN Attending Unavailable ESTEVAN POLANCO Attending Unavailable [facility], Zeinab Doll Attending Unavaila ikre Gonzalez MD, Sammie Primary Care Unavailable Sammie Gonzalez MD Primary Care Provider Elyssa Gomes MD Attending Provider Sammie Gonzalez MD Attending Provider Sammie Gonzalez MD Primary Care Provider Sammie Gonzalez M Primary Care Unavailable Elyssa Gomes Admitting Unavailable Elyssa Gomes Attending Unavailable Sammie Gonzalez M Attending Unavailable Hoy, Sammie M Admitting Unavailable Hoy, Smamie M Primary Care Unavailable Hoy, Sammie M Attending Unavailable Hoy, Sammie M Admitting Unavailable Hoy, Sammie M Primary Care Unavailable Hoy, Sammie M Primary Care Unavailable Hoy, Sammie M Attending Unavailable Luisy, Sammie M Admitting Unavailable Hoy, Sammie M Primary Care Unavailable Self, Referral Admitting Unavailable Self, Referral Attending Unavailable Zeinab Wood Admitting Unavailable Zeinab Wood Attending Unavailable Sammie Gonzalez M Primary Care Unavailable Mk Broderick Admitting Unavailable Luisy, Sammie M Primary Care Unavailable Mk Broderick Attending Unavailable Janice, Sammie M Primary Care Unavailable Sammie Gonzalez M Attending Unavailable Sammie Gonzalez M Admitting Unavailable Medications Current Medications Medication Drug Class(es) Dates Sig (Normalized) Sig (Original) acetaminophen 325 mg oral tablet (16 sources) Start: 02-23-2025 take 2 tablets enteral [...] every four to six hours as needed Start: 02-18-2021 End: 06-30-2023 take 1 tablet [...] four times daily as needed for headache mddpyaclfs-miqiqynuhyubc-fkecgsjx 50-325-40 MG tablet TAKE 1 TABLET BY MOUTH FOUR TIMES DAILY NEEDED FOR HEADACHE Oral for 15 Active End: 06-26-2023 acetaminophen 325 mg-caffein e 40 mg-butalbital 50 mg (FIORICET) per 15 mL oral liquid take 1 capsule by mo wyh every four hours Fioricet 50-300-40 MG 1 capsule as needed Orally every 4 hrs Active Comment on above: Take 1 tablet by adrian every four hours as needed Max 4 per day acetaminophen 325 mg / HYDROcodone bitartrate 5 mg oral tablet (20 sources) Opioid Agonist Start: 10-24-2021 take 1 tablet by mouth every four to six hours as needed for pain albuterol 0.83 mg/ml inhalation solution (20 sources) beta2-Adrenergic Agonist Start: 09-11-2020 take 2.5 mg by inhalation four times daily as needed take 1 tablet by mouth every eig [...] take 1 tablet by mouth twice daily benzonatate 100 mg oral capsule (20 sources) Non-narcotic Antitussive Start: 10-10-2021 take 2 capsules by mouth every four hours as needed for cough Start: 10-10-2021 take 200 mg by mouth [...] Monitoring Suppl (True Metrix Meter) w/Device kit (4 sources) Start: 03-10-2023 Blood Glucose Monitoring Suppl (True Metrix Meter) w/Device kit USE TO TEST BLOOD SUGAR EVERY DAY 03/10/2023 Active brexpiprazole 2 mg oral tablet (20 sources) Atypical Antipsychotic Start: 10-28-2018 End: 02-14-2025 take 1 tablet by mouth once daily Comment on above: Take 2 mg by [...] take 1 tablet by mouth once daily Comment on above: Take 5 mg by [...] Comment on above: TAKE 1 TABLET BY [facility] EVERY DAY FOR 6 DAYS dexlansoprazole 60 mg delayed release oral capsule (20 sources) Proton Pump Inhibitor Start: 12-22-2019 End: 06-26-2023 take 1 capsule by mouth twice daily dexlansoprazole (Dexilant) [address] capsule 1 [...] 1:00am diclofenac sodium 0.01 mg/mg topical gel (20 sources) Nonsteroidal Anti-inflammatory Drug Start: 02-01-2025 Start: 02-01-2025 Diclofenac Sod ium (Voltaren Arthritis Pain) 1 % gel Active 4 GM TOPICAL Four times daily 100 February 01, 2025 12:00am apply to single [...] / sennosides, residential 8.6 mg oral tablet (17 sources) Start: 02-22-2025 take 1 tablet by [...] three times daily as needed for anxiety take 1 capsule by [facility] every twenty-four hours Doxepin HCl 10 MG 1 capsule at bedtime Orally Once a day Active doxycycline hyclate 100 mg oral tablet (20 sources) Tetracycline-class Drug Start: 10-24-2021 take 1 tablet by mouth twice daily DULoxetine 30 mg delayed release oral capsule (20 sources) Serotonin and Norepinephrine Reuptake Inhibitor Start: 05-17-2025 take 1 capsule by mouth once daily DULoxetine DR (CYMBALTA) 30 mg capsule Indications: Fibromyalgia TAKE 1 CAPSULE BY MOUTH EVERY DAY ALONG WITH THE 60MG CAPSULE TO EQUAL 90MG A DAY 90 capsule 2 05/17/2025 Active Start: 05-30-2024 End: 10-10-2024 take 1 tablet [...] above: Take 1 capsule by mo uth once daily. TAKE 1 CAPSULE BY MO UTH EVERY DAY etodolac 400 mg oral tablet [...] take 1 puff(s) by inhalation twice daily End: 06-26-2023 mometasone-formoterol (DULER A) 100-5 mcg/actuation inhaler glycopyrrolate 1 mg oral tablet (20 sources) Start: 02-16-2021 take 2 tablets by mouth twice daily glycopyrrolate (ROBINUL) 1 mg tablet Take 2 mg by mouth twice daily. 02/16/2021 Active Start: 10-28-2018 End: 06-26-2023 take 1 tablet by mouth once daily Start: 10-28-2018 take 3 mg by mouth [...] take 1 tablet by mouth twice daily Comment on above: Take 1 tablet by adrian th twice daily. TAKE 1 TABLET BY ADRIAN TH TWICE DAILY Take 1 tablet by adrian th two times a day. ipratropium bromide 0.2 mg/ml inhalation solution (20 sources) Anticholinergic Star t: 08-15 take 0.5 mg by inhalation every six hours as needed Start: 09-11-2020 take 0.5 mg by inhal ation every six hours Ipratropium [place] Active 0.5 MG INHALATION Q6H September 11, [...] sources) Mood Stabilizer, Anti-epileptic Agent Start: 09-12-2017 take 3 tablets by mouth once daily Start: 09-12-2017 take 600 mg by mouth once bibi y Lamotrigine Active 600 MG PO Daily September 12, 2017 1:00am take 1 tablet by [facility] every twenty-four hours lamoTRIgine 200 MG [...] Start: 09-11-20 take 1 tablet by mouth in the morning lisinopril 10 MG tablet Take 10 mg by mouth in the morning. 03/09/2023 Active lubiprostone 0.024 mg oral capsule (20 sources) Chloride Channel Activator Start: 10-28-19 19 take 1 capsule by mouth twice daily Start: 10-28-2018 take 1 capsule by ellett [...] take 2 tablets by mouth twice daily Start: 09-12-2017 take 1000 mg by mout h twice daily Metformin Active 1000 MG PO Twice daily September 12, 2017 1:00am metFORMIN (GLUCO PHAGE) 500 mg tablet Active methocarbamol 500 mg oral tablet (20 sources) Muscle Relaxant Start: 03-13-2025 End: 05-18-2025 take 1 tablet by mouth twice daily as needed methocarbamol (ROBAXIN) 500 mg tablet Indications: Chronic daily headache TAKE 1 TABLET BY MOUTH TWICE A DAY NEEDED 45 tablet 2 05/18/2025 Active Start: 02-22-2025 End: 03-13-2025 take 1 [...] mirabegron 25 mg extended release oral tablet (20 sources) beta3-Adrenergic Agonist Start: take 1 tablet [...] 25, 2023 12:00am Start: 06-26-2023 End: 02-05-2024 Comment on above: Take 1 capsule by mo [facility] daily at bedtime. ondansetron 4 mg oral tablet (20 sources) Serotonin-3 Receptor Antagonist Start: take 1 tablet by mouth every six hours as needed for nausea and vomiting ondansetron (Zofran) 4 MG tablet TAKE 1 TABLET BY MOUTH EVERY 6 HOURS NEEDED FOR NAUSEA AND VOMITING 03/16/2023 Active Start: 10-02-2021 [facility] as needed for nausea and vomiting oxyCODONE hydrochloride 5 mg oral tablet (20 [...] take 1 tablet by mouth once daily Start: 09-12-2017 End: 10-09-2017 Pioglitazone 15 mg [...] tablet Discontinued 40 MG PO Daily 10 November 11, 2019 1:00am September 11, 2020 7:28am Start: 11-11-2019 End: 09-11-2020 take 40 mg by mouth once daily Prednisone Discontinued 40 MG PO Daily 10 November 11, 2019 1:00am September 11, 2020 7:28am Start: 12-18-2018 End: 09-11-2020 take 1 tablet by mouth once daily at mealtime Prednisone 50 mg tablet Discontinued 50 MG PO Daily 01 16December 18, 2018 12:00am September 11, 2020 7:28am administer with food or milk predniSONE (Delt asone) 10 MG tablet 1 tablet with food or milk Orally Three times a day for 5 days and twice a day for 3 days for 8 days Active Comment on above: 1-2 tabs po qd pregabalin 50 mg oral capsule (9 sources) Start: 06-19-2022 take 1 capsule by mouth in the morning pregabalin (Lyrica) 50 MG capsule Take 50 mg by mouth in the morning and 50 mg before bedtime. 06/19/2022 Active take 1 capsule by mo [facility] every twenty-four hours Lyrica 100 MG 1 capsule Orally Once a da y Not-Taking promethazine hydrochloride 25 mg oral tablet (4 sources) Phenothiazine Start: 02-17-2023 take 1 tablet by mouth every eight hours as needed promethazine (Phenergan) 25 MG tablet Take 25 mg by mouth every 8 (eight) hours if needed. 02/17/2023 Active raNITIdine 300 mg oral tablet (20 sources) Histamine-2 Receptor Antagonist Start: 09-12-2017 take 1 tablet by mouth once daily as needed roflumilast 0.5 mg oral tablet (20 sources) Phosphodiesterase 4 Inhibitor Start: 09-12-2017 End: 06-26-2023 take 1 tablet by mouth once daily take 1 tablet by [facility] every twenty-four hours Daliresp 500 MCG 1 tablet Orally Once a day Active simvastatin 20 mg oral tablet (20 sources) HMG-CoA Reductase Inhibitor Start: 10-28-2018 take 1 tablet by mouth once daily Comment on above: Take 20 mg by [...] Start: 04-11-2022 take 2 tablets by mo ut once daily at bedtime tiZANidine (Zanaflex) 4 MG tablet TAKE 2 TABLETS BY MOUTH DAILY AT BEDTIME 04/11/2022 Active Comment on above: Take 1 tablet by adrian every 8 hours as needed. topiramate 50 mg oral tablet (20 sources) Start: 2 take 1 tablet by mouth once daily traMADol hydrochloride 50 mg oral tablet (5 sources) Opioid Agonist Start: 0 take 1 tablet by mouth every four to six hours as needed for pain traMADol HCl 50 MG 1 tablet as needed for pain Orally every 4-6 hours for 7 days prn Jul, Active divalproex sodium 500 mg delayed release oral tablet (4 sources) Mood Stabilizer, Anti-epileptic Agent Start: 2 take 1 tablet by mouth in the morning divalproex (Depakote) 500 MG EC tablet Take 500 mg by mouth in the morning and 500 mg before bedtime. 07/18/2022 Active vilazodone hydrochloride 40 mg oral tablet (20 sources) Start: 7 End: 5 take 1 tablet by mouth once daily [...] 18, 2021 October 02, 2021 4:22am amylase [id number] unt / lipase [id number] unt / protease [id number] unt delayed release oral capsule (20 sources) Start: 09-12-2017 End: 10-28-2018 take 35916-77510 capsules by mouth three times daily Gnethk-Mqmjxtny-Pd ylase (Creon) 24,000-76,000 -120,000 unit capsule,delayed release(DR/EC) Discontinued 1 TAB PO Three times daily September 12, 2017 1:00am October 28, 2018 12:18pm azithromycin 500 mg oral tablet (20 sources) Macrolide Antimicrobial Start: 10-11-2017 End: 10-16-2017 take 1 tablet by mouth once daily Azithromycin 500 mg tablet Discontinued 500 MG PO Daily 01 16October 11, 2017 1:00am October 15, 2017 1:00am [...] every six hours as needed for pain take 1 tablet by adrian th four times daily ibuprofen 800 MG tablet TAKE 1 TABLET FOUR TIMES DAILY Oral for 30 Active 2 ml ketorolac tromethamine 30 mg/ml cartridge (4 sources) Nonsteroidal Anti-inflammatory Drug, Cyclooxygenase Inhibitor Start: 05-23-2025 End: 05-23-2025 60 mg, Intramuscular, Once, On Thu05/23/25 at 1400, For 1 dose, Max daily dose: 120 mg. Max duration: 5 days total Start: 05-23-2025 End: 05-23-2025 ketorolac (Toradol) injectio n 60 mg Start: 05-23-2025 End: 05-23-2025 60 mg, Intramuscular, Once, On Thu05/23/25 at 1400, For 1 dose, Max daily dose: 120 mg. Max duration: 5 days total Start: 05-23-2025 End: 05-23-2025 ketorolac (Toradol) injectio n 60 mg levETIRAcetam 1000 mg oral tablet (3 sources) [...] completed) Start: 09-12-2017 take 1 tablet by mouth twice d aily Comment on above: Take 100 mg by mouth twice daily. pantoprazole 40 mg delayed release oral tablet (20 sources) Proton Pump Inhibitor Start: 09-12-20 End: 09-11-20 20 take 1 tablet by mouth twice daily Pantoprazole 40 tablet,delayed release (DR/EC) Discontinued 40 MG PO Twice daily September 12, 2017 1:00am September 11, 2020 7:28am phentermine hydrochloride 37.5 mg oral tablet (11 sources) Sympathomimetic Amine Anorectic Start: 01-26-20 End: 06-30-20 23 take 1 tablet by mouth once daily Phentermine HCl 37.5 mg tablet Take 37.5 mg by mouth once daily. 0 01/25/2021 06/30/2023 Discontinued (Course of therapy completed) Comment on above: Take 37.5 mg by mout h once daily. sucralfate 1000 mg oral tablet (20 sources) Aluminum Complex Start: 10-28-19 End: 02-15-20 25 take 1 tablet by mouth at bedtime [...] Translations: [Unspecified acute appendicitis] 09-17-2021 Episodic Cataract (4 sources) Nuclear senile cataract; Translations: [Age-related nuclear cataract, unspecified eye] Onset: 3 03-24-2023 Chronic Chronic obstructive pulmonary disease and bronchiectasis (20 sources) Acute exacerbation of chronic obstructive airways disease; Translations: [Chronic obstructive lung disease] Onset: 5 11-11-2019 Chronic Conditions associated with dizziness or vertigo (6 sources) Dizziness and giddiness; Translations: [Dizziness and giddiness] Onset: 5 03-29-2025 Episodic Contraceptive and procreative management (2 sources) Encounter for surveillance of injectable contraceptive; Translations: [Encounter for Depo-Provera contraception] Episodic Diabetes mellitus with complications (20 sources) Secondary diabetes mellitus; Translations: [Other specified diabetes mellitus with diabetic autonomic (poly)neuropathy] Chronic Diabetes mellitus without complication (20 sources) Diabetes mellitus type 2 without retinopathy; Translations: [Type 2 diabetes mellitus without complications] Onset: 3 03-24-2023 Chronic Disorders of lipid metabolism (20 sources) Mixed hyperlipidemia; Translations: [Mixed hyperlipidemia] Onset: 5 02-13-2025 Chronic Disorders of teeth and jaw [...] of anus and rectum] 11-02-2018 Episodic Glaucoma (4 sources) Open angle with borderline findings, low risk, bilateral; Translations: [Open angle with borderline findings, low risk] Onset: 3 03-24-2023 Chronic Headache; including migraine (20 sources) Intractable chronic tension headache; Translations: [Chronic tension-type headache, intractable] Onset: 3 06-01-2023 Chronic Headache; including migraine (11 sources) Medication overuse headache; Translations: [Drug-induced headache, [...] 5 Episodic Other and unspecified benign neoplasm (19 sources) Neoplasm of meninges; Translations: [Benign neoplasm [...] Onset: 3 Episodic Other connective tissue disease (17 sources) Biceps tendinitis; Translations: [Bicipital tendinitis, unspecified shoulder] 01-26-2024 Episodic Other connective tissue disease (3 sources) Bicipital tendinitis, unspecified shoulder; Translations: [Bicipital tenosynovitis] 01-26-2024 Episodic Other connective tissue disease (8 sources) Bursitis of left shoulder; Translations: [Bursitis of left shoulder] 11-03-2024 Episodic Other connective tissue disease (5 sources) Bursitis of left shoulder; Translations: [Disorders of bursae and tendons in shoulder region, unspecified] 11-03-2024 Episodic Other connective tissue disease (1 source) Fibromyalgia; Translations: [Fibromyalgia] Onset: 5 Episodic Other disorders of stomach and duodenum (20 sources) Disorder of function of stomach; Translations: [Disease of stomach and duodenum, unspecified] 11-02-2018 Episodic Other ear and sense organ disorders (4 sources) Otitis externa; Translations: [Unspecified otitis externa, [...] of 40.0 to 44.9 in adult] Onset: Past or Other Problems Problem Classification Problem Date Documented Da te Episodic/Chronic Blindness and vision defects (8 sources) Bilateral myopia of eyes; Translations: [Myopia, bilateral] Onset: 03-24-2023 03-24-2023 Episodic Deficiency and other anemia (1 source) Iron deficiency anemia, unspecified; Translations: [Iron deficiency anemia, unspecified] Onset: 12-13-2024 Episodic Mood disorders (20 sources) Depressive disorder; Translations: [Depression] Resolved: 02-14-2025 02-14-2025 Chronic Neoplasms of unspecified nature or uncertain behavior (17 sources) Neoplasm of brain; Translations: [Neoplasm of [...] M65.9] Onset: 06-05-2021 Resolved: 06-05-2021 Episodic Other diseases of kidney and ureters (1 source) Disorder of kidney and ureter, unspecified; Translations: [Disorder of kidney and ureter, unspecified] Onset: 02-10-2025 Episodic Other gastrointestinal disorders (4 sources) Abdominal bloating; Translations: [Abdominal distension (gaseous)] Onset: 03-25-2023 03-25-2023 Episodic Other lower respiratory disease (4 sources) Rib pain; Translations: [Pleurodynia] Onset: 03-25-2023 03-25-2023 Episodic Other nervous system disorders (16 sources) Cerebral edema; Translations: [Cerebral edema] Onset: 02-21-2025 Resolved: 03-29-2025 02-21-2025 Chronic Other nervous system disorders (16 sources) Postoperative pain ; Translations: [Other acute postprocedural pain] Onset: 02-22-2025 Resolved: 03-29-2025 02-22-2025 Episodic Other non-traumatic joint disorders (12 sources) Pain in left shoulder; Translations: [Acute pain of left shoulder] Onset: 01-20-2022 Resolved: 01-27-2022 Episodic Other non-traumatic joint disorders (19 sources) Pain in right wrist; Translations: [Pain in joint, forearm] Onset: 01-24-2022 Resolved: 01-24-2022 Episodic Other screening for suspected conditions (not mental disorders or infectious disease) (1 source) Encounter for screening mammogram for malignant neoplasm of breast; Translations: [Encounter for screening mammogram for malignant neoplasm of breast] Onset: 09-16-2024 Episodic Residual codes; unclassified (16 sources) At risk of epileptic fits; Translations: [Other specified personal risk factors, not elsewhere classified] Onset: 02-21-2025 Resolved: 03-29-2025 02-21-2025 Episodic Unclassified (1 source) Patient encounter status 02-14-2025 Results Test Name Value Interpretation Reference Range Facility A1C with Estimated Average G tanesha 05-26-2025 Glucose [Mass/Vol] 117 mg/dL Normal [facility] Comment on above: Order Comment: [email or web address] Result Comment: PERF ORMED BY: [facility] [address] [place] [address] PATHOLOGIST [employer] BERNARDINO HAMILTON M.D. Performed By: #### L IPID, [id number], TSH3, T3F, FE PRO, [id number], T4T, MG, A1C WTH eA, CBC, PHOS ####[facility] [id number] [place] [address] [facility]#### INSULIN ####[facility] , Alanine aminotransferase [En zymatic activity/volume] in Serum or PlasmaOrdered By: Sammie Gonzalez on 05-26-2025 ALT [Catalytic activity/Vol] 17 U/L Normal 7-52 [facility] Comment on above: Performed By: #### C MP ####[address] Albumin [Mass/volume] in Ser um or Plasma by Bromocresol green (BCG) dye binding methoOrdered By: Sammie Gonzalez on 05-26-2025 Albumin BCG dye [Mass/Vol] 4.2 g/dL 3.5-5.7 [facility] Alkaline phosphatase [Enzyma tic activity/volume] in Serum or PlasmaOrdered By: Sammie Gonzalez on 05-26-2025 ALP [Catalytic activity/Vol] 46 U/L Normal 34-104 [facility] Comment on above: Result Comment: PERF ORMED BY: [facility] [address] [place] [address] PATHOLOGIST [employer] BERNARDINO HAMILTON M.D. Performed By: #### C MP ####[address] Aspartate aminotransferase [ Enzymatic activity/volume] in Serum or PlasmaOrdered By: Sammie Gonzalez on 05-26-2025 AST [Catalytic activity/Vol] 12 U/L Low 13-39 [facility] Comment on above: Performed By: #### C MP ####[address] Basophils [#/volume] in Bloo d by Automated countOrdered By: Sammie Gonzalez on 05-26-2025 Basophils (Bld) [#/Vol] 0.1 10*3/uL Normal 0.0-0.2 [facility] Comment on above: Order Comment: [email or web address] Result Comment: PERF ORMED BY: [facility] [address] [place] [address] PATHOLOGIST [employer] BERNARDINO HAMILTON M.D. Performed By: #### L IPID, [id number], TSH3, T3F, FE PRO, [id number], T4T, MG, A1C WTH eA, CBC, PHOS ####[address]#### INSULIN ####[facility] , Basophils/100 leukocytes in Blood by Automated countOrdered By: Sammie Gonzalez on 05-26-2025 Basophils/100 WBC (Bld) 0.7 % Normal . [facility] Comment on above: Order Comment: PIPER [email or web address] Performed By: #### L IPID, [id number], TSH3, T3F, FE PRO, [id number], T4T, MG, A1C WTH eA, CBC, PHOS ####[facility] [id number]#### INSULIN ####[facility] , Bilirubin.total [Mass/volume ] in Serum or PlasmaOrdered By: Sammie Gonzalez on 05-26-2025 Bilirubin [Mass/Vol] 0.3 mg/dL Normal 0.3-1.0 [facility] Comment on above: Performed By: #### C MP ####[address] Blood estimated average gluc ose determination by estimation from glycated hemoglobinOrdered By: Sammie Gonzalez on 05-26-2025 Average glucose Estimated from glycated hemoglobin (Bld) [Mass/Vol] 117 mg/dL [facility] Calcium [Mass/volume] in Ser um or PlasmaOrdered By: Sammie Gonzalez on 05-26-2025 Calcium [Mass/Vol] 9.1 mg/dL Normal 8.6-10.3 [facility] Comment on above: Performed By: #### C MP ####[address] Carbon dioxide, total [Moles /volume] in Serum or PlasmaOrdered By: Sammie Gonzalez on 05-26-2025 CO2 [Moles/Vol] 26.4 mmol/L Normal 21.0-31.0 [facility] Comment on above: Performed By: #### C MP ####[address] Chloride [Moles/volume] in S micki or PlasmaOrdered By: Sammie Gonzalez on 05-26-2025 Chloride [Moles/Vol] 103 mmol/L Normal 98-107 [facility] Comment on above: Performed By: #### C MP ####[address] Cholesterol [Mass/volume] in Serum or PlasmaOrdered By: Sammie Gonzalez on 05-26-2025 Cholesterol [Mass/Vol] 206 mg/dL High 140-200 [facility] Comment on above: Chol less than 200 m g/dl low riskChol 201-239 mg/dl borderline riskChol 240 mg/dl and greater high risk Order Comment: PIPER [email or web address].JKW Result Comment: Chol less than 200 mg/dl low risk Chol 201-239 mg/dl borderline risk Chol 240 mg/dl and greater high risk Performed By: #### L IPID, [id number], TSH3, T3F, FE PRO, [id number], T4T, MG, A1C WTH eA, CBC, PHOS ####[address]#### INSULIN ####[facility] , Cholesterol in HDL [Mass/vol ume] in Serum or PlasmaOrdered By: Sammie Gonzalez on 05-26-2025 Cholesterol in HDL [Mass/Vol] 67 mg/dL Normal 23-92 [facility] Comment on above: HDL CHOL ATP-III CLA SSIFICATION Cardiovascular RiskHDL > or equal to 60 mg/dL LOWHDL < 40 mg/dL HIGH Order Comment: PIPER [email or web address].JKW Result Comment: HDL CHOL ATP-III CLASSIFICATION Cardiovascular Risk HDL > or equal to 60 mg/dL LOW HDL < 40 mg/dL HIGH Performed By: #### L IPID, [id number], TSH3, T3F, FE PRO, [id number], T4T, MG, A1C WTH eA, CBC, PHOS ####[address]#### INSULIN ####[facility] , Cholesterol in LDL Calc [Mas s/Vol]Ordered By: Sammie Gonzalez on 05-26-2025 Cholesterol in LDL [Mass/Vol] 91 mg/dL 0-100 [facility] Comment on above: LDL ATP III CLASSIFI CATIONLDL less than 100 mg/dL OptimalLDL 100-129 mg/dL Near or above optimalLDL 130-159 mg/dL Borderline highLDL 160-189 mg/dL HighLDL greater than 189 mg/dL Very high Cholesterol in VLDL Calc [Ma ss/Vol]Ordered By: Sammie Gonzalez on 05-26-2025 Cholesterol in VLDL [Mass/Vol] 47 mg/dL [facility] Complete Blood Count Auto Di ffon 05-26-2025 Mean Corpuscular HGB Conc 33.0 g/dL Normal 32.0-35.0 [facility] Comment on above: Order Comment: FASTI [email or web address].JKW Performed By: #### L IPID, [id number], TSH3, T3F, FE PRO, [id number], T4T, MG, A1C WTH eA, CBC, PHOS ####[facility]#### INSULIN ####[facility] , NRBC% 0.1 /100{WBC} Normal 0-0.5 [facility] Comment on above: Order Comment: FASTI [email or web address].JKW Performed By: #### L IPID, [id number], TSH3, T3F, FE PRO, [id number], T4T, MG, A1C WTH eA, CBC, PHOS ####[facility] [place] [address] [place]#### INSULIN ####[facility] , White Blood Count 8.3 [CFU]/mL Normal 3.8-11.6 [facility] Comment on above: Order Comment: FASTI [email or web address].JKW Performed By: #### L IPID, [id number], TSH3, T3F, FE PRO, [id number], T4T, MG, A1C WTH eA, CBC, PHOS ####[facility] [place] [address] [place]#### INSULIN ####[facility] , Comprehensive Metabolic Pane costa 05-26-2025 Albumin [Mass/Vol] 4.2 g/dL Normal 3.5-5.7 [facility] Comment on above: Performed By: #### C MP ####[address] GFR/1.73 sq M.predicted MDRD (S/P/Bld) [Vol rate/Area] mL/min/{1.73_m2} Normal [facility] Comment on above: Performed By: #### C MP ####[address] Creatinine [Mass/volume] in Serum or PlasmaOrdered By: Sammie Gonzalez on 05-26-2025 Creatinine [Mass/Vol] 0.85 mg/dL Normal 0.60-1.20 [facility] Comment on above: Performed By: #### C MP ####[address] Eosinophils [#/volume] in Bl ood by Automated countOrdered By: Sammie Gonzalez on 05-26-2025 Eosinophils (Bld) [#/Vol] 0.2 10*3/uL Normal 0.0-0.45 [facility] Comment on above: Order Comment: FASTI [email or web address].JKW Performed By: #### L IPID, [id number], TSH3, T3F, FE PRO, [id number], T4T, MG, A1C WTH eA, CBC, PHOS ####[address]#### INSULIN ####[facility] , Eosinophils/100 leukocytes i n Blood by Automated countOrdered By: Sammie Gonzalez on 05-26-2025 Eosinophils/100 WBC (Bld) 3.0 % Normal . [facility] Comment on above: Order Comment: FASTI [email or web address].JKW Performed By: #### L IPID, [id number], TSH3, T3F, FE PRO, [id number], T4T, MG, A1C WTH eA, CBC, PHOS ####[facility] [place] [address] [place]#### INSULIN ####[facility] , Erythrocyte distribution wid th [Ratio] by Automated countOrdered By: Sammie Gonzalez on 05-26-2025 Erythrocyte distribution width (RBC) [Ratio] 13.5 % Normal 11.9-15.3 [facility] Comment on above: Order Comment: FASTI [email or web address].JKW Performed By: #### L IPID, [id number], TSH3, T3F, FE PRO, [id number], T4T, MG, A1C WTH eA, CBC, PHOS ####[address]#### INSULIN ####[facility] , Erythrocytes [#/volume] in B lood by Automated countOrdered By: Sammie Gonzalez on 05-26-2025 RBC (Bld) [#/Vol] 4.27 10*6/uL Normal 3.60-5.00 [facility] Comment on above: Order Comment: FASTI [email or web address].JKW Performed By: #### L IPID, [id number], TSH3, T3F, FE PRO, [id number], T4T, MG, A1C WTH eA, CBC, PHOS ####[address]#### INSULIN ####[facility] , FE PROon 05-26-2025 % Iron Saturation 10.2 % Low 20-50 [facility] Comment on above: Order Comment: FASTI [email or web address].JKW Performed By: #### L IPID, [id number], TSH3, T3F, FE PRO, [id number], T4T, MG, A1C WTH eA, CBC, PHOS ####[address]#### INSULIN ####[facility] , Total Iron Binding Capacity 442 ug/dL Normal 255-450 [facility] Comment on above: Order Comment: FASTI [email or web address].JKW Performed By: #### L IPID, [id number], TSH3, T3F, FE PRO, [id number], T4T, MG, A1C WTH eA, CBC, PHOS ####[facility] [id number]#### INSULIN ####[facility] , Ferritin [Mass/volume] in Se rum or PlasmaOrdered By: Sammie Gonzalez on 05-26-2025 Ferritin [Mass/Vol] 8.1 ng/mL Low 11.0-306.8 [facility] Comment on above: Order Comment: FASTI NG.JKW Performed By: #### L IPID, [id number], TSH3, T3F, FE PRO, [id number], T4T, MG, A1C WTH eA, CBC, PHOS ####[facility] [id number] [address]#### INSULIN ####[facility] , Folate [Mass/volume] in Seru m or PlasmaOrdered By: Sammie Gonzalez on 05-26-2025 Folate [Mass/Vol] 30.0 ng/mL >5.9 [facility] Comment on above: Folate reference ran ge: >5.9 ng/mlThe WHO technical consultation on folate and vitamin [id number] has determined that folate concentrations lessthan 4 ng/ml are considered deficient. Glomerular filtration rate [ Volume Rate/Area] in Serum, Plasma or Blood by CreatinineOrdered By: Sammie Gonzalez on 05-26-2025 Glomerular filtration rate [Volume Rate/Area] in Serum, Plasma or Blood by Creatinine > 60.0 mL/Min [facility] Glucose [Mass/volume] in Ser um or PlasmaOrdered By: Sammie Gonzalez on 05-26-2025 Glucose [Mass/Vol] 88 mg/dL Normal 70-100 [facility] Comment on above: ADA recommended refe rence rangeRandom Glucose Reference Range is dependent on time and content of last meal. Glucose of more than 200 mg/dL in a nonstressed, ambulatory subject supports the diagnosis of Diabetes Mellitus. Result Comment: [facility] Glucose Reference Range is dependent on time and content of last meal. Glucose of more than 200 mg/dL in a nonstressed, ambulatory subject supports the diagnosis of Diabetes Mellitus. ADA recommended reference range Performed By: #### C MP ####[address] Hematocrit [Volume Fraction] of Blood by Automated countOrdered By: Sammie Gonzalez on 05-26-2025 Hematocrit (Bld) [Volume fraction] 37.8 % Normal 34.0-46.4 [facility] Comment on above: Order Comment: PIPER [email or web address].OgKW Performed By: #### L IPID, [id number], TSH3, T3F, FE PRO, [id number], T4T, MG, A1C WTH eA, CBC, PHOS ####[address]#### INSULIN ####[facility] , Hemoglobin A1c/Hemoglobin.to mike in BloodOrdered By: Sammie Gonzalez on 05-26-2025 HbA1c (Bld) [Mass fraction] 5.7 % High 4.3-5.6 [facility] Comment on above: Increased risk for d iabetes: 5.7 - 6.4diabetes: >6.4glycemic control for adults with diabetes: <7.0 Order Comment: MABELI NG.JKW Result Comment: Incr eased risk for diabetes: 5.7 - 6.4 diabetes: >6.4 glycemic control for adults with diabetes: <7.0 Performed By: #### L IPID, [id number], TSH3, T3F, FE PRO, [id number], T4T, MG, A1C WTH eA, CBC, PHOS ####[address]#### INSULIN ####[facility] , Hemoglobin [Mass/volume] in BloodOrdered By: Sammie Gonzalez on 05-26-2025 Hemoglobin (Bld) [Mass/Vol] 12.5 g/dL Normal 11.8-15.4 [facility] Comment on above: Order Comment: FASTI [email or web address].JKW Performed By: #### L IPID, [id number], TSH3, T3F, FE PRO, [id number], T4T, MG, A1C WTH eA, CBC, PHOS ####[place] [address] [address]#### INSULIN ####[facility] , Insulinon 05-26-2025 Insulin 15.6 u[iU]/mL Normal 2.6-24.9 [facility] Comment on above: Order Comment: FASTI [email or web address].JKW Result Comment: Perf ormed at: - [facility] [address] [id number] Senior Medical Billing Specialist: Maxim Daniel PhD, Phone: [phone] PERFORMED BY: [place] [address] PATHOLOGIST [employer] BERNARDINO HAMILTON M.D. Performed By: #### L IPID, [id number], TSH3, T3F, FE PRO, [id number], T4T, MG, A1C WTH eA, CBC, PHOS ####[address]#### INSULIN ####[facility] , Iron [Mass/volume] in Serum or PlasmaOrdered By: Sammie Gonzalez on 05-26-2025 Iron [Mass/Vol] 45 ug/dL Low 50-212 [facility] Comment on above: Order Comment: FASTI [email or web address].JKW Performed By: #### L IPID, [id number], TSH3, T3F, FE PRO, [id number], T4T, MG, A1C WTH eA, CBC, PHOS ####[place] [address] [address]#### INSULIN ####[facility] , Leukocytes [#/volume] correc jana for nucleated erythrocytes in Blood by Automated counOrdered By: Sammie Gonzalez on 05-26-2025 WBC corrected for nucl RBC Auto (Bld) [#/Vol] 8.3 10*3/uL 3.8-11.6 [facility] Leukocytes [#/volume] in Blo od by Automated countOrdered By: Sammie Gonzalez on 05-26-2025 WBC (Bld) [#/Vol] 8.3 10*3/uL Normal 3.8-11.6 [facility] Comment on above: Order Comment: PIPER [email or web address].JKW Performed By: #### L IPID, [id number], TSH3, T3F, FE PRO, [id number], T4T, MG, A1C WTH eA, CBC, PHOS ####[facility] [id number] [address]#### INSULIN ####[facility] , Lipid Panelon 05-26-2025 LDL Cholesterol,Calculated 91 mg/dL Normal 0-100 [facility] Comment on above: Order Comment: PIPER FITZGERALDKW Result Comment: LDL ATP III CLASSIFICATION LDL less than 100 mg/dL Optimal LDL 100-129 mg/dL Near or above optimal LDL 130-159 mg/dL Borderline high LDL 160-189 mg/dL High LDL greater than 189 mg/dL Very high Performed By: #### L IPID, [id number], TSH3, T3F, FE PRO, [id number], T4T, MG, A1C WTH eA, CBC, PHOS ####[facility] [id number] [place] [address] [place]#### INSULIN ####[facility] , Triglyceride w/Reflex 239 mg/dL High 0-149 [facility] Comment on above: Order Comment: FASTI [email or web address].JKW Result Comment: TRIG ATP III CLASSIFICATION TRIG less than 150 mg/dL Normal TRIG 150-199 mg/dL Borderline high TRIG 200-500 mg/dL High TRIG greater than 500 mg/dL Very high Standard traceable to the Center for Disease Conrtrol and Prevention (CDC) test method. Performed By: #### L IPID, [id number], TSH3, T3F, FE PRO, [id number], T4T, MG, A1C WTH eA, CBC, PHOS ####[address]#### INSULIN ####[facility] , VLDL CHOLESTEROL 47 mg/dL Normal [facility] Comment on above: Order Comment: FASTI [email or web address].JKW Performed By: #### L IPID, [id number], TSH3, T3F, FE PRO, [id number], T4T, MG, A1C WTH eA, CBC, PHOS ####[address]#### INSULIN ####[facility] , Lymphocytes [#/volume] in Bl ood by Automated countOrdered By: Sammie Gonzalez on 05-26-2025 Lymphocytes (Bld) [#/Vol] 2.9 10*3/uL Normal 1.00-4.8 [facility] Comment on above: Order Comment: FASTI [email or web address].JKW Performed By: #### L IPID, [id number], TSH3, T3F, FE PRO, [id number], T4T, MG, A1C WTH eA, CBC, PHOS ####[address]#### INSULIN ####[facility] , Lymphocytes/100 leukocytes i n Blood by Automated countOrdered By: Sammie Gonzalez on 05-26-2025 Lymphocytes/100 WBC (Bld) 34.8 % Normal . [facility] Comment on above: Order Comment: FASTI [email or web address].JKW Performed By: #### L IPID, [id number], TSH3, T3F, FE PRO, [id number], T4T, MG, A1C WTH eA, CBC, PHOS ####[place] [address] [place]#### INSULIN ####[facility] , MCH [Entitic mass] by Automa jana countOrdered By: Sammie Gonzalez on 05-26-2025 MCH (RBC) [Entitic mass] 29.2 pg Normal 24.7-34.3 [facility] Comment on above: Order Comment: FASTI [email or web address].JKW Performed By: #### L IPID, [id number], TSH3, T3F, FE PRO, [id number], T4T, MG, A1C WTH eA, CBC, PHOS ####[address]#### INSULIN ####[facility] , MCHC Auto (RBC) [Mass/Vol]Or dered By: Sammie Gonzalez on 05-26-2025 MCHC (RBC) [Mass/Vol] 33.0 g/dL 32.0-35.0 [facility] MCV [Entitic volume] by Auto mated countOrdered By: Sammie Gonzalez on 05-26-2025 MCV (RBC) [Entitic vol] 88.5 fL Normal 80-100 [facility] Comment on above: Order Comment: FASTI [email or web address].JKW Performed By: #### L IPID, [id number], TSH3, T3F, FE PRO, [id number], T4T, MG, A1C WTH eA, CBC, PHOS ####[address]#### INSULIN ####[facility] , Magnesium [Mass/volume] in S micki or PlasmaOrdered By: Sammie Gonzalez on 05-26-2025 Magnesium [Mass/Vol] 1.8 mg/dL Low 1.9-2.7 [facility] Comment on above: Order Comment: FASTI [email or web address].JKW Performed By: #### L IPID, [id number], TSH3, T3F, FE PRO, [id number], T4T, MG, A1C WTH eA, CBC, PHOS ####[address]#### INSULIN ####[facility] , Monocytes [#/volume] in Bloo d by Automated countOrdered By: Sammie Gonzalez on 05-26-2025 Monocytes (Bld) [#/Vol] 0.9 10*3/uL High 0.0-0.8 [facility] Comment on above: Order Comment: FASTI [email or web address].JKW Performed By: #### L IPID, [id number], TSH3, T3F, FE PRO, [id number], T4T, MG, A1C WTH eA, CBC, PHOS ####[address]#### INSULIN ####[facility] , Monocytes/100 leukocytes in Blood by Automated countOrdered By: Sammie Gonzalez on 05-26-2025 Monocytes/100 WBC (Bld) 11.2 % Normal . [facility] Comment on above: Order Comment: FASTI [email or web address].JKW Performed By: #### L IPID, [id number], TSH3, T3F, FE PRO, [id number], T4T, MG, A1C WTH eA, CBC, PHOS ####[address]#### INSULIN ####[facility] , Neutrophils [#/volume] in Bl ood by Automated countOrdered By: Sammie Gonzalez on 05-26-2025 Neutrophils (Bld) [#/Vol] 4.2 10*3/uL Normal 1.8-7.7 [facility] Comment on above: Order Comment: FASTI [email or web address].JKW Performed By: #### L IPID, [id number], TSH3, T3F, FE PRO, [id number], T4T, MG, A1C WTH eA, CBC, PHOS ####[place] [address] [place]#### INSULIN ####[facility] , Neutrophils/100 leukocytes i n Blood by Automated countOrdered By: Sammie Gonzalez on 05-26-2025 Neutrophils/100 WBC (Bld) 50.3 % Normal . [facility] Comment on above: Order Comment: FASTI NG.JKW Performed By: #### L IPID, [id number], TSH3, T3F, FE PRO, [id number], T4T, MG, A1C WTH eA, CBC, PHOS ####[place] [address] [address]#### INSULIN ####[facility] , No Panel InformationOrdered By: Sammie Gonzalez on 05-26-2025 Pharmacy Creatinine Clearance (Chem N/A [facility] Nucleated erythrocytes [Pres ence] in Blood by Automated countOrdered By: Sammie Gonzalez on 05-26-2025 Nucleated RBC Auto Ql (Bld) 0.1 /100{WBC} 0-0.5 [facility] Phosphate [Mass/volume] in S micki or PlasmaOrdered By: Sammie Gonzalez on 05-26-2025 Phosphate [Mass/Vol] 3.8 mg/dL Normal 2.5-4.5 [facility] Comment on above: Order Comment: FASTI [email or web address].JKW Performed By: #### L IPID, [id number], TSH3, T3F, FE PRO, [id number], T4T, MG, A1C WTH eA, CBC, PHOS ####[address]#### INSULIN ####[facility] , Platelet mean volume [Entiti c volume] in Blood by Automated countOrdered By: Sammie Gonzalez on 05-26-2025 Platelet mean volume (Bld) [Entitic vol] 8.3 fL Normal 6.3-10.7 [facility] Comment on above: Order Comment: FASTI [email or web address].JKW Performed By: #### L IPID, [id number], TSH3, T3F, FE PRO, [id number], T4T, MG, A1C WTH eA, CBC, PHOS ####[address]#### INSULIN ####[facility] , Platelets [#/volume] in Bloo d by Automated countOrdered By: Sammie Gonzalez on 05-26-2025 Platelets (Bld) [#/Vol] 421 10*3/uL Normal 150-450 [facility] Comment on above: Order Comment: PIPER SANTOS.JKW Performed By: #### L IPID, [id number], TSH3, T3F, FE PRO, [id number], T4T, MG, A1C WTH eA, CBC, PHOS ####[address]#### INSULIN ####[facility] , Potassium [Moles/volume] in Serum or PlasmaOrdered By: Sammie Hoy on 05-26-2025 Potassium [Moles/Vol] 4.6 mmol/L Normal 3.5-5.1 [facility] Comment on above: Performed By: #### C MP ####[address] Protein [Mass/volume] in Ser um or PlasmaOrdered By: Sammie Gonzalez on 05-26-2025 Protein [Mass/Vol] 6.5 g/dL Normal 6.4-8.9 [facility] Comment on above: Performed By: #### C MP ####[address] Serum globulin measurement b y calculation (mass/volume)Ordered By: Sammie Gonzalez on 05-26-2025 Globulin (S) [Mass/Vol] 2.3 g/dL Normal [facility] Comment on above: Performed By: #### C MP ####[address] Serum or plasma albumin/glob ulin mass ratioOrdered By: Sammie Janice on 05-26-2025 Albumin/Globulin [Mass ratio] 1.8 {ratio} Normal [facility] Comment on above: Performed By: #### C MP ####[address] Serum or plasma anion gap de terminationOrdered By: Sammie Gonzalez on 05-26-2025 Anion gap [Moles/Vol] 13.2 mmol/L Normal 6.0-15.0 [facility] Comment on above: Performed By: #### C MP ####[address] Serum or plasma iron binding capacity measurement (mass/volume)Ordered By: Sammie Gonzalez on 05-26-2025 Iron binding capacity [Mass/Vol] 442 ug/dL 255-450 [facility] Serum or plasma iron saturat ion measurement (mass fraction)Ordered By: Sammie Gonzalez on 05-26-2025 Iron saturation [Mass fraction] 10.2 % Low 20-50 [facility] Serum or plasma total choles terol/high density lipoprotein (HDL) cholesterol mass ratOrdered By: Sammie Gonzalez on 05-26-2025 Cholesterol.total/Tali sterol in HDL [Mass ratio] 3.1 {ratio} Normal <5.0 [facility] Comment on above: Order Comment: FASTI DANIELLE.JKW Performed By: #### L IPID, [id number], TSH3, T3F, FE PRO, [id number], T4T, MG, A1C WTH eA, CBC, PHOS ####[address]#### INSULIN ####[facility] , Sodium [Moles/volume] in Ser um or PlasmaOrdered By: Sammie Gonzalez on 05-26-2025 Sodium [Moles/Vol] 138 mmol/L Normal 136-145 [facility] Comment on above: Performed By: #### C MP ####[address] Thyrotropin [Units/volume] i n Serum or PlasmaOrdered By: Sammie Gonzalez on 05-26-2025 TSH Qn 4.15 m[IU]/L Normal 0.45-5.33 [facility] Comment on above: Order Comment: FASTI DANIELLE.JKW Performed By: #### L IPID, [id number], TSH3, T3F, FE PRO, [id number], T4T, MG, A1C WTH eA, CBC, PHOS ####[facility] [place] [address] [place]#### INSULIN ####[facility] , Thyroxine (T4) [Mass/volume] in Serum or PlasmaOrdered By: Sammie Gonzalez on 05-26-2025 T4 [Mass/Vol] 11.24 ug/dL Normal 5.39-11.82 [facility] Comment on above: Order Comment: PIPER SANTOS.JKW Performed By: #### L IPID, [id number], TSH3, T3F, FE PRO, [id number], T4T, MG, A1C WTH eA, CBC, PHOS ####[place] [address] [address]#### INSULIN ####[facility] , Transferrin [Mass/volume] in Serum or PlasmaOrdered By: Sammie Gonzalez on 05-26-2025 Transferrin [Mass/Vol] 316 mg/dL Normal 203-362 [facility] Comment on above: Order Comment: PIPER SANTOS.JKW Performed By: #### L IPID, [id number], TSH3, T3F, FE PRO, [id number], T4T, MG, A1C WTH eA, CBC, PHOS ####[facility]#### INSULIN ####[facility] , Triglyceride [Mass/volume] i n Serum or PlasmaOrdered By: Sammie Gonzalez on 05-26-2025 Triglyceride [Mass/Vol] 239 mg/dL High 0-149 [facility] Comment on above: TRIG ATP III CLASSIF ICATIONTRIG less than 150 mg/dL NormalTRIG 150-199 mg/dL Borderline highTRIG 200-500 mg/dL High TRIG greater than 500 mg/dL Very highStandard traceable to the Center for Disease Conrtrol and Prevention (CDC) test method. Triiodothyronine (T3) Freeon 05-26-2025 Triiodothyronine (T3) Free 3.72 pg/mL Normal 2.50-3.90 [facility] Comment on above: Order Comment: PIPER FITZGERALDKW Result Comment: PERF ORMED BY: [facility] [address] [place] [address] PATHOLOGIST [employer] BERNARDINO HAMILTON M.D. Performed By: #### L IPID, [id number], TSH3, T3F, FE PRO, [id number], T4T, MG, A1C WTH eA, CBC, PHOS ####[facility] [place] [id number] [facility]#### INSULIN ####[facility] , Triiodothyronine (T3) Free [ Mass/volume] in Serum or PlasmaOrdered By: Sammie oGnzalez on 05-26-2025 Free T3 [Mass/Vol] 3.72 pg/mL 2.50-3.90 [facility] Urea nitrogen [Mass/volume] in Serum or PlasmaOrdered By: Sammie Gonzalez on 05-26-2025 Urea nitrogen [Mass/Vol] 15 mg/dL Normal 7-25 [facility] Comment on above: Performed By: #### C MP ####[address] Vit. B12/Folate Profileon Folate 30.0 ng/mL Normal >5.9 [facility] Comment on above: Order Comment: PIPER [email or web address].JKW Result Comment: Jonna te reference range: >5.9 ng/ml The WHO technical consultation on folate and vitamin b12 deficiencies has determined that folate concentrations less than 4 ng/ml are considered deficient. Performed By: #### L IPID, [id number], TSH3, T3F, FE PRO, [id number], T4T, MG, A1C WTH eA, CBC, PHOS ####[facility] [place] [id number] [place]#### INSULIN ####[facility] , Vitamin B12 ser/plasOrdered By: Sammie Gonzalez on 05-26-2025 Cobalamin (Vitamin B12) [Mass/Vol] 484 pg/mL Normal 180-914 [facility] Comment on above: Order Comment: PIPER SANTOS.JKW Performed By: #### L IPID, [id number], TSH3, T3F, FE PRO, [id number], T4T, MG, A1C WTH eA, CBC, PHOS ####[facility] [place] [address] [facility]#### INSULIN ####[facility] , Vitamin D 25 Hydroxy Totalon 05-26-2025 Vitamin D 25 Hydroxy Total 31.9 ng/mL Normal 30-100 [facility] Comment on above: Order Comment: PIPER SANTOS.JKW Result Comment: THERESE MIN D STATUS 25(OH)VITAMIN D RANGE (ng/mL) Deficient <20 Insufficient 20 to <30 Sufficient 30 to 100 Reference: Anum Berry, Brynn APARICIO, et al. Evaluation,treatment, and prevention of vitamin D deficiency; an Endocrine Society clinical practice guideline. JCEM. 2010; 96(7):1911-. PERFORMED BY: [facility] [address] [place] [address] PATHOLOGIST [employer] BERNARDINO HAMILTON M.D. Performed By: #### L IPID, [id number], TSH3, T3F, FE PRO, [id number], T4T, MG, A1C WTH eA, CBC, PHOS ####[place] [address] [place] [id number] [facility]#### INSULIN ####[facility] , Vitamin D+Metabolites [Mass/ volume] in Serum or PlasmaOrdered By: Sammie Gonzalez on 05-26-2025 Vitamin D+Metabolites [Mass/Vol] 31.9 ng/mL 30-100 [facility] Comment on above: VITAMIN D STATUS 25( [place])VITAMIN D RANGE (ng/mL) Deficient <20 Insufficient 20 to <30Sufficient 30 to 100Reference: Anum Berry, Brynn APARICIO, et al. Evaluation,treatment, and prevention of vitamin D deficiency; an Endocrine Society clinical practice guideline. JCEM. 2010; 96(7):1911-. CNOVon 03-15-2025 CNOV Office Visit ([facility] ) KOURTNEY NOVKA ([id number]) 1975 F Date Time Provider Department 03/15/25 12:00 PM FELLOW APPOINTMENTS [facility] During your visit today, we recorded the following information about you: Pulse Respiration Blood pressure Weight 82/minute 18/minute 156/79 111.3 kg Yuly Do MA 03/15/2025 12:44 PM Signed Additional intake questions: Has the patient had fever, nausea, vomiting, diarrhea, constipation, fatigue for > 1 week? No Does the patient have a decreased appetite? No Does patient want to see a Supervisor Instrument Repair? No (yes to any of above refer [...] and [facility] AND [facility], [facility] CC: Patient Care Team: Sammie Gonzalez MD [...] changes. PLAN: - Send a picture in [facility] on Thursday. - Bactrim DS x 5 [...] pioglitazone (A (more content not included)... Normal [facility] 03-08-2025 [facility] Tele[facility] ([facility]) KOURTNEY NOVAK ([id number]) 1975 F Date Time Provider Department 03/08/25 MARIO ALBERTO PHILLIPS [facility] During your visit today, we [...] Status:Closed by [facility]) KOURTNEY NOVAK ([id number]) 1975 F Date Time Provider Department 03/06/25 [...] No Does patient want to see a Supervisor Instrument Repair? No (yes to any of above refer [...] request and reach out to her through [employer] with a reply. Mario Alberto Phillips RN, Meter Tester Polyphase Allergies As of Date: 03/06/2025 (No Known [...] 24 mcg (more content not included)... Normal [facility] KOURTNEY NOVAK ([id number]) 1975 F Date Time Provider Department 02/23/25 MARIO ALBERTO PHILLIPS [facility] During your visit today, we [...] Reviewed med list and sent patient a SyncroPhi Systemshart message for alternating Ibuprofen and Tylenol for headache/pain as needed Confirmed postop appointments Patient was made aware to reach out for questions/ concerns/updates. Mario Alberto Phillips RN, Meter Tester Polyphase Allergies As of Date: 02/23/2025 (No Known [...] Status:Closed by MARIO ALBERTO PHILLIPS on 02/23/25 [facility] 02-22-2025 [facility] HNO ID: [id number] Author: ANNALISA ENRIQUEZ Chaplain Service: Spiritual Care Author Type: Architectural Job Captain Type: Allied Health Filed: 02/22/2025 15:39 Note Text: SPIRITUALCARE Spiritual Care Visit- Brief Note Name: Kourtney Novak Date: February 22, 2025 Notes: The doctor chiropractic met with the patient's family at the bedside, introducing himself and providing information about the availability of spiritual care services. The patient expressed gratitude for the visit but declined any support for the moment. Follow-up will be provided as circumstances allow. For further [place] [phone]. Architectural Job Captain services are available 06/04. SIGNATURE: Chaplain Hiro PATIENT NAME: Kourtney Novak DATE: February 22, 2025 TIME: 3:39 PM This is an electronically created document. IF PRINTED, PLEASE DO NOT REMOVE FROM THE CHART OR MODIFY PRINTED COPY. Normal [facility] CNDSon 02-22-2025 CNDS HNO ID: [id number] Author: ERIK PINEDA MD Service: Neurosurgery Author [...] M.D. - Office PCP: Sammie Gonzalez MD [phone] Treatment Team: Attending Provider: Erik Pineda MD [...] The patient was electively admitted to the [facility]. After being optimized for surgery by [...] The patient was then transferred up to [place] [address] hospital room for postoperative management. Patient was [...] Information Primary Emergency Contact: Christiano Saini Address: [address] [place] [address] [place] Mobile Relation: Son Secondary Emergency Contact: Laith Saini Address: [address] [place], [place] [id number] [place] Mobile Relation: Son ALLERGIES: ALLERGIES No Known Allergies HOME MEDICATIONS: Medication List START taking these medications acetaminophen 325 mg tablet Commonly known as: TYLENOL 2 tablets by ORAL/FEEDING TUBE rou (more content not included)... Normal [facility] THERAPY NTon 02-22-2025 THERAPY NT HNO ID: [id number] Author: OLIVIA WOLFF, PT Service: Physical Therapy Author Type: Physical Therapist Type: Therapy (PT/OT/Speech/Resp) Filed: 02/22/2025 13:12 Note Text: PHYSICAL THERAPY MISSED VISIT SERVICE DATE: 02/22/2025 SERVICE TIME: 1140 ROOM: [place] [address] Patient not seen due to Declined to Participate. Pt denies concerns for home going, declines stair training before d/c. No further acute PT needs, all concerns addressed. PT to sign off. 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 Denies falls. Lives with adult [...] daily living (ADL) TREATMENT INTERVENTIONS Evaluation, Self Snf Management (16835) Timed Code Treatment (minutes): 8 Skilled Treatment Time (minutes): 23 TRAINING AND EDUCATION PROVIDED Activity Adaptation/Compensato ry Strategies, Benefits of In-Hospital Mobility, Disease Specific Education, Discharge Planning, Expected Functional Level, Functional Mobility Involving ADLs, Lower Extremity Dressing, Pain Management, Precautions/Restricti ons, Role of Occupational Therapy, Standing Balance to Improve [place] with ADLs/Self-Care, Transfer - Sit to Stand, [...] Reasons Therapy Services Discontinued: Goals met SIGNATURE: Enu Harp OT/L PATIENT NAME: Kourtney Novak DATE: February 22, 2025 TIME: 11:36 AM Normal [facility] HNO ID: [id number] Author: TIM ALTAMIRANO Student Service: Spiritual Care [...] THE CHART OR MODIFY PRINTED COPY. Normal [facility] ALLIED [facility] HNO ID: [id number] Author: ABBY DALLAS RT(Lc) Service: Radiology Author Type: Grinder Hand Type: Allied Health Filed: 02/21/2025 10:15 Note [...] PATIENT PRESENTS WITH AN IMPLANTABLE OR ATTACHED JEWELRY ESTIMATOR: No RADIOLOGY DEPARTMENT: MR; Exam(s) Completed: Head: Routine Brain. Lavender Administered: Yes PERIPHERAL IV DATA: Inpatient: see LDA documentation SIGNED BY: Abby Dallas RT(R) February 21, 2025 9:22 AM Normal [facility] Basic metabolic 2000 panelon 02-21-2025 Anion gap [Moles/Vol] 13 mmol/L Normal 8-15 [facility] Comment on above: Order Comment: Speci men Type: BLOOD SPECIMENOrdering Facility: [facility] Address: [address] [place] [address] Performed By: #### 2 4321-2 ####[facility] LABCLIA [id number] [place] [address] [place] Calcium [Mass/Vol] 8.8 mg/dL Normal 8.5-10.2 [facility] Comment on above: Order Comment: Speci men Type: BLOOD SPECIMENOrdering Facility: [facility] Address: [address] [place] [address] Performed By: #### 2 4321-2 ####[facility] LABCLIA [id number] [place] [address] [place] Chloride [Moles/Vol] 105 mmol/L Normal 98-107 [facility] Comment on above: Order Comment: Speci men Type: BLOOD SPECIMENOrdering Facility: [facility] Address: [address] [place] [address] Performed By: #### 2 4321-2 ####[facility] LABCLIA [id number] [place] [address] [place] CO2 [Moles/Vol] 20 mmol/L Low 22-30 [facility] Comment on above: Order Comment: Speci men Type: BLOOD SPECIMENOrdering Facility: [facility] Address: [address] [place] [address] Performed By: #### 2 4321-2 ####[facility]CLIA [id number] [place] [id number] [place] Creatinine [Mass/Vol] 0.75 mg/dL Normal 0.58-0.96 [facility] Comment on above: Order Comment: Speci men Type: BLOOD SPECIMENOrdering Facility: [facility] Address: [address] [place] [address] Performed By: #### 2 4321-2 ####[facility]CLIA [id number] [place] [address] [place] Creatinine and Glomerular filtration rate.predicted panel (S/P/Bld) 99 mL/min/1.73m??? Normal >=60 [facility] Comment on above: Order Comment: Speci men Type: BLOOD SPECIMENOrdering Facility: [facility] Address: [address] [place] [address] Result Comment: Heather mated Glomerular Filtration Rate [...] actual GFR. Performed By: #### 2 4321-2 ####[facility]CLIA [id number] [place] [id number] [place] Glucose [Mass/Vol] 131 mg/dL High 74-99 [facility] Comment on above: Order Comment: Speci men Type: BLOOD SPECIMENOrdering Facility: [facility] Address: [address] [place] [address] Result Comment: The [place] Diabetes Association (ADA) provides guidance for cutoff [...] Standards of Medical Care in Diabetes 2016, [place] [employer] Association. Diabetes Care. 2016.39(Suppl 1). Performed By: #### 2 4321-2 ####[facility]CL[facility] [id number] [place] [address] [place] Potassium [Moles/Vol] 4.2 mmol/L Normal 3.7-5.1 [facility] Comment on above: Order Comment: Speci men Type: BLOOD SPECIMENOrdering Facility: [facility] Address: [address] [place] [address] Performed By: #### 2 4321-2 ####[facility] LABIA [id number] [place] [address] [place] Sodium [Moles/Vol] 138 mmol/L Normal 136-144 [facility] Comment on above: Order Comment: Speci men Type: BLOOD SPECIMENOrdering Facility: [facility] Address: [address] [place] [address] Performed By: #### 2 4321-2 ####[facility]CLIA [id number] [place] [address] [place] Urea nitrogen [Mass/Vol] 8 mg/dL Normal 7-21 [facility] Comment on above: Order Comment: Speci men Type: BLOOD SPECIMENOrdering Facility: [facility] Address: [address] [place] [address] Performed By: #### 2 4321-2 ####[facility] LABIA [id number] [address], [place] [address] [place] CBC W Auto Differential pane l (Bld)on 02-21-2025 Basophils (Bld) [#/Vol] 10*3/uL Normal <0.[address] [facility] Comment on above: Order Comment: Speci men Type: BLOOD SPECIMENOrdering Facility: [facility] Address: [address] [place] [address] Performed By: #### 5 7021-8 ####[facility]CLIA [id number] [address], [place] [address] [place] Basophils/100 WBC (Bld) 0.1 % Normal [facility] Comment on above: Order Comment: Speci men Type: BLOOD SPECIMENOrdering Facility: [facility] Address: [address] [place] [address] Performed By: #### 5 7021-8 ####[facility]CLIA [id number] [address] [place] Differential cell count method Nom (Bld) Auto Normal [facility] Comment on above: Order Comment: Speci men Type: BLOOD SPECIMENOrdering Facility: [facility] Address: [address] [place] [address] Performed By: #### 5 7021-8 ####[facility]CLIA [id number] [place] [address] [place] Eosinophils (Bld) [#/Vol] 10*3/uL Normal <0.46 [facility] Comment on above: Order Comment: Speci men Type: BLOOD SPECIMENOrdering Facility: [facility] Address: [address] [place] [address] Performed By: #### 5 7021-8 ####[facility]CLIA [id number] [place] [address] [place] Eosinophils/100 WBC (Bld) 0.0 % Normal [facility] Comment on above: Order Comment: Speci men Type: BLOOD SPECIMENOrdering Facility: [facility] Address: [address] [place] [address] Performed By: #### 5 7021-8 ####[facility]CLIA [id number] [place] [address] [place] Erythrocyte distribution width (RBC) [Ratio] 13.2 % Normal 11.5-15.0 [facility] Comment on above: Order Comment: Speci men Type: BLOOD SPECIMENOrdering Facility: [facility] Address: [address] [place] [address] Performed By: #### 5 7021-8 ####[facility]CLIA [id number] [place] [address] [place] Hematocrit (Bld) [Volume fraction] 34.6 % Low 36.0-46.0 [facility] Comment on above: Order Comment: Speci men Type: BLOOD SPECIMENOrdering Facility: [facility] Address: [address] [place] [address] Performed By: #### 5 7021-8 ####[facility] LABIA [id number] [place] [address] [place] Hemoglobin (Bld) [Mass/Vol] 11.2 g/dL Low 11.5-15.5 [facility] Comment on above: Order Comment: Speci men Type: BLOOD SPECIMENOrdering Facility: [facility] Address: [address] [place] [address] Performed By: #### 5 7021-8 ####[facility]CLIA [id number] [place] [address] [place] Immature granulocytes (Bld) [#/Vol] 0.05 10*3/uL Normal <0.10 [facility] Comment on above: Order Comment: Speci men Type: BLOOD SPECIMENOrdering Facility: [facility] Address: [address] [place] [address] Performed By: #### 5 7021-8 ####[facility]CLIA [id number] [place] [address] [place] Immature granulocytes/100 WBC (Bld) 0.4 % Normal [facility] Comment on above: Order Comment: Speci men Type: BLOOD SPECIMENOrdering Facility: [facility] Address: [address] [place] [address] Performed By: #### 5 7021-8 ####[facility]CLIA [id number] [place] [address] [place] Lymphocytes (Bld) [#/Vol] 0.87 10*3/uL Low 1.00-4.00 [facility] Comment on above: Order Comment: Speci men Type: BLOOD SPECIMENOrdering Facility: [facility] Address: [address] [place] [address] Performed By: #### 5 7021-8 ####[facility] LABIA [id number] [place] [address] [place] Lymphocytes/100 WBC (Bld) 6.8 % Normal [facility] Comment on above: Order Comment: Speci men Type: BLOOD SPECIMENOrdering Facility: [facility] Address: [address] [place] [address] Performed By: #### 5 7021-8 ####[facility] LABIA [id number] [place] [address] [place] MCH (RBC) [Entitic mass] 29.7 pg Normal 26.0-34.0 [facility] Comment on above: Order Comment: Speci men Type: BLOOD SPECIMENOrdering Facility: [facility] Address: [address] [place] [address] Performed By: #### 5 7021-8 ####[facility] LABIA [id number] [place] [address] [place] MCHC (RBC) [Mass/Vol] 32.4 g/dL Normal 30.5-36.0 [facility] Comment on above: Order Comment: Speci men Type: BLOOD SPECIMENOrdering Facility: [facility] Address: [address] [place] [address] Performed By: #### 5 7021-8 ####[facility] LABIA [id number] [place] [address] [place] MCV (RBC) [Entitic vol] 91.8 fL Normal 80.0-100.[address] [facility] Comment on above: Order Comment: Speci men Type: BLOOD SPECIMENOrdering Facility: [facility] Address: [address] [place] [address] Performed By: #### 5 7021-8 ####[facility] LABIA [id number] [place] [address] [place] Monocytes (Bld) [#/Vol] 0.94 10*3/uL High <0.87 [facility] Comment on above: Order Comment: Speci men Type: BLOOD SPECIMENOrdering Facility: [facility] Address: [address] [place] [address] Performed By: #### 5 7021-8 ####[facility] LABIA [id number] [place] [address] [place] Monocytes/100 WBC (Bld) 7.3 % Normal [facility] Comment on above: Order Comment: Speci men Type: BLOOD SPECIMENOrdering Facility: [facility] Address: [address] [place] [address] Performed By: #### 5 7021-8 ####[facility] LABIA [id number] [place] [id number] [place] Neutrophils (Bld) [#/Vol] 10.95 10*3/uL High 1.45-7.50 [facility] Comment on above: Order Comment: Speci men Type: BLOOD SPECIMENOrdering Facility: [facility] Address: [address] [place] [address] Performed By: #### 5 7021-8 ####[facility] LABCLIA [id number] [place] [address] [place] Neutrophils/100 WBC (Bld) 85.4 % Normal [facility] Comment on above: Order Comment: Speci men Type: BLOOD SPECIMENOrdering Facility: [facility] Address: [address] [place] [address] Performed By: #### 5 7021-8 ####[facility] LABCLIA [id number] [place] [address] [place] Nucleated RBC (Bld) [#/Vol] 10*3/uL Normal <0.01 [facility] Comment on above: Order Comment: Speci men Type: BLOOD SPECIMENOrdering Facility: [facility] Address: [address] [place] [address] Performed By: #### 5 7021-8 ####[facility] LABIA [id number] [place] [address] [place] Nucleated RBC/100 WBC (Bld) [Ratio] 0.0 /100 WBC Normal [facility] Comment on above: Order Comment: Speci men Type: BLOOD SPECIMENOrdering Facility: [facility] Address: [address] [place] [address] Performed By: #### 5 7021-8 ####[facility] LABIA [id number] [place] [address] [place] Platelet mean volume (Bld) [Entitic vol] 10.5 fL Normal 9.0-12.7 [facility] Comment on above: Order Comment: Speci men Type: BLOOD SPECIMENOrdering Facility: [facility] Address: [address] [place] [address] Performed By: #### 5 7021-8 ####[facility] LABCLIA [id number] [place] [address] [place] Platelets (Bld) [#/Vol] 309 10*3/uL Normal 150-400 [facility] Comment on above: Order Comment: Speci men Type: BLOOD SPECIMENOrdering Facility: [facility] Address: [address] [place] [address] Performed By: #### 5 7021-8 ####[facility]CLIA [id number] [place] [address] [place] RBC (Bld) [#/Vol] 3.77 10*6/uL Low 3.90-5.20 [facility] Comment on above: Order Comment: Speci men Type: BLOOD SPECIMENOrdering Facility: [facility] Address: [address] [place] [address] Performed By: #### 5 7021-8 ####[facility]CLIA [id number] [place] [address] [place] WBC (Bld) [#/Vol] 12.82 10*3/uL High 3.70-11.00 [facility] Comment on above: Order Comment: Speci men Type: BLOOD SPECIMENOrdering Facility: [facility] Address: [address] [place] [address] Performed By: #### 5 7021-8 ####[facility]CLIA [id number] [place] [address] [place] MRI BRAIN WO/W IVCONon 02-21 MRI BRAIN WO/W IVCON * * *Final Report* * * DATE OF EXAM: Feb 21 2025 11:17AM QBM 0295 - MRI BRAIN WO/W IVCON / PROCEDURE REASON: Brain/PLANT PROTECTION SUPERVISOR neoplasm, monitor * * * * Physician [...] resection. No residual mass or pathologic enhancement. Nub Card Tender: GUANACO Transcribe Date/Time: Feb 21 2025 11:17A Dictated by : CHIKA RUBY MD This examination was interpreted and the report reviewed and electronically signed by: TOMAS TAMEZ MD on Feb 21 2025 11:58AM EST [id number] N [facility] NURSING PROGon 02-21-2025 NURSING PROG HNO ID: [id number] Author: MICHELLE BAEZ RN Service: Nursing Author [...] Neri PATIENT DISCHARGED TO: Patient transferred to [facility]. Report called to RN. SIGNED BY: Michelle Baez RN February 21, 2025 10:07 AM Normal [facility] NURSING PROG HNO ID: [id number] Author: MICHELLE BAEZ RN Service: Nursing Author [...] February 21, 2025 TIME: 9:09 AM Normal [facility] NUTRITIONon 02-21-2025 NUTRITION HNO ID: [id number] Author: ZEINAB SUMMERS RD Service: Nutrition Therapy Author Type: Registered Dietitian Type: Nutrition Filed: 02/21/2025 17:21 Note Text: NUTRITION THERAPY SCREEN NOTE SERVICE DATE: 02/21/2025 SERVICE TIME: Start Time: 1305 Care Plan: Continue current diet (carb controlled) Refer to: Lead Portfolio Manager to Follow Discharge Recommendations: Diet Diet: carb [...] (mins): 3 SIGNATURE:Zeinab Summers RDN, LD, [place], [facility] PATIENT NAME: Kourtney Novak DATE: February 21, 2025 TIME: 5:20 PM Normal [facility] THERAPY NTon 02-21-2025 THERAPY NT HNO ID: [id number] Author: OLIVIA WOLFF, PT Service: Physical Therapy Author Type: Physical Therapist Type: Therapy (PT/OT/Speech/Resp) Filed: 02/21/2025 12:40 Note Text: Physical Therapy Evaluation Summary SERVICE DATE: 02/21/2025 SERVICE TIME: 1145 to 1208 ROOM: [place] [address] PT 6 Clicks Score: 20 DISCHARGE RECOMMENDATIONS [...] 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 Denies falls. Lives with adult son and brother who both work and are IND in the home. SUBJECTIVE Agreeable to PT THERAPY DIAGNOSIS Reduced mobility-other TREATMENT INTERVENTIONS Evaluation, Gait Training (84446) Timed Code Treatment (minutes): 8 Skilled Treatment [...] February 21, 2025 TIME: 12:40 PM Normal [facility] ANES POSTPROC EVALon 025 ANES POSTPROC EVAL HNO ID: [id number] Author: PAULINO RAMACHANDRAN, DO Service: ? Author Type: Anesthesiologist Type: Anesthesia Postprocedure Evaluation Filed: 02/20/2025 18:52 Note Text: POST ANESTHESIA EVALUATION NOTE : 1975 Procedure Summary Date: 02/20/25 Room / Location: [address] [facility] Anesthesia Start: 1221 Anesthesia [...] February 20, 2025 TIME: 6:17 PM CSN: [id number] Normal [facility] ANES PRE-OPon 02-20-2025 ANES PRE-OP HNO ID: [id number] Author: PAULINO RAMACHANDRAN DO Service: ? Author Type: Anesthesiologist Type: Anesthesia Preprocedure Evaluation Filed: 02/20/2025 12:11 Note Text: ANESTHESIOLOGY DAY OF SURGERY NOTE : 1975 Procedure Information Date/Time: 02/20/25 1245 Procedures: ORBITOCRANIAL TO ANT CRAN FOSSA W/ SUPRAORB RIDGE OSTEOTOMY AND ELEV FRONTANDTEMP LOBE (Right: Brain) RESECTION LESION BASE OF ANTERIOR CRANIAL FOSSA INTRADURAL W/ DURAL REPAIR (Right: Brain) Location: MAIN [facility] / [facility] Surgeons: Erik Pineda MD [...] February 20, 2025 TIME: 12:10 PM CSN: [id number] Normal [facility] ARTERIAL BLOOD GASES WITH IO NIZED MAGNESIUMon 02-20-2025 Base deficit (BldA) [Moles/Vol] -4 mmol/L Low -2-0 [facility] Comment on above: Order Comment: Speci men Type: ARTERIAL BLOOD SPECIMENOrdering Facility: [facility] Address: [address] [place] [address] Performed By: #### A LLMG ####[facility] LABIA [id number] [place] [address] [place] Calcium.ionized (Bld) [Mass/Vol] 1.11 mmol/L Normal 1.08-1.30 [facility] Comment on above: Order Comment: Speci men Type: ARTERIAL BLOOD SPECIMENOrdering Facility: [facility] Address: [address] [place] [address] Performed By: #### A LLMG ####[facility] [id number] [place] [address] [place] Calcium.ionized adjusted to pH 7.4 (BldA) [Moles/Vol] 1.12 mmol/L Normal 1.08-1.30 [facility] [facility] Comment on above: Order Comment: Speci men Type: ARTERIAL BLOOD SPECIMENOrdering Facility: [facility] Address: [address] [place] [address] Performed By: #### A LLMG ####[facility] LABIA [id number] [place] [address] [place] Carboxyhemoglobin (BldA) [Mass fraction] 0.6 % Normal 0.0-2.0 [facility] Comment on above: Order Comment: Speci men Type: ARTERIAL BLOOD SPECIMENOrdering Facility: [facility] Address: [address] [place] [address] Result Comment: Carb oxyhemoglobin Reference Range for Smokers: 2.0-8.0% Performed By: #### A LLMG ####[facility] LABCLIA [id number] [place] [address] [place] CO2 (Bld) [Partial pressure] 33 mm Hg Low 36-46 [facility] Comment on above: Order Comment: Speci men Type: ARTERIAL BLOOD SPECIMENOrdering Facility: [facility] Address: [address] [place] [address] Performed By: #### A LLMG ####[facility] LABCLIA [id number] [place] [address] [place] CO2 adjusted to patient's actual temperature (Bld) [Partial pressure] 33 mmHg Low 36-46 [facility] Comment on above: Order Comment: Speci men Type: ARTERIAL BLOOD SPECIMENOrdering Facility: [facility] Address: [address] [place] [address] Performed By: #### A LLMG ####[facility] LABCLIA [id number] [place] [address] [place] Glucose [Mass/Vol] 113 mg/dL High 60-105 [facility] Comment on above: Order Comment: Speci men Type: ARTERIAL BLOOD SPECIMENOrdering Facility: [facility] Address: [address] [place] [address] Performed By: #### A LLMG ####[facility] LABCLIA [id number] [place] [id number] [place] HCO3 (Bld) [Moles/Vol] 20 mmol/L Low 22-26 [facility] Comment on above: Order Comment: Speci men Type: ARTERIAL BLOOD SPECIMENOrdering Facility: [facility] Address: [address] [place] [address] Performed By: #### A LLMG ####[facility] LABCLIA [id number] [place] [address] [place] Hematocrit (Bld) [Volume fraction] 32.7 % Low 36.0-46.0 [facility] Comment on above: Order Comment: Speci men Type: ARTERIAL BLOOD SPECIMENOrdering Facility: [facility] Address: [address] [place] [address] Performed By: #### A LLMG ####[facility] [id number] [place] [address] [place] Hemoglobin (Bld) [Mass/Vol] 10.6 g/dL Low 11.5-15.5 [facility] Comment on above: Order Comment: Speci men Type: ARTERIAL BLOOD SPECIMENOrdering Facility: [facility] Address: [address] [place] [address] Performed By: #### A LLMG ####[facility] [id number] [place] [address] [place] Lactate [Moles/Vol] 1.0 mmol/L Normal 0.5-2.2 [facility] Comment on above: Order Comment: Speci men Type: ARTERIAL BLOOD SPECIMENOrdering Facility: [facility] Address: [address] [place] [address] Performed By: #### A LLMG ####[facility] [id number] [place] [address] [place] Magnesium [Moles/Vol] 0.42 mmol/L Low 0.45-0.60 [facility] Comment on above: Order Comment: Speci men Type: ARTERIAL BLOOD SPECIMENOrdering Facility: [facility] Address: [address] [place] [address] Performed By: #### A LLMG ####[facility] [id number] [place] [id number] [place] Methemoglobin (Bld) [Mass fraction] 2.1 % High 0.0-1.5 [facility] Comment on above: Order Comment: Speci men Type: ARTERIAL BLOOD SPECIMENOrdering Facility: [facility] Address: [address] [place], [place] [address] Performed By: #### A LLMG ####[facility] LABCLIA [id number] [address] [place] [address] [place] Oxygen (Bld) [Partial pressure] 208 mm Hg High 85-95 [facility] Comment on above: Order Comment: Speci men Type: ARTERIAL BLOOD SPECIMENOrdering Facility: [facility] Address: [address] [place], [place] [address] Performed By: #### A LLMG ####[facility] LABCLIA [id number] [place] [id number] [place] Oxygen adjusted to patient's actual temperature (Bld) [Partial pressure] 208 mmHg High 85-95 [facility] Comment on above: Order Comment: Speci men Type: ARTERIAL BLOOD SPECIMENOrdering Facility: [facility] Address: [address] [place] [address] Performed By: #### A LLMG ####[facility] LABCLIA [id number] [place] [id number] [place] Oxyhemoglobin (BldA) [Mass fraction] 96 % Normal 95-98 [facility] Comment on above: Order Comment: Speci men Type: ARTERIAL BLOOD SPECIMENOrdering Facility: [facility] Address: [address] [place] [address] Performed By: #### A LLMG ####[facility] LABCLIA [id number] [address] [address] [place] pH (Bld) 7.41 [pH] Normal 7.35-7.45 [facility] Comment on above: Order Comment: Speci men Type: ARTERIAL BLOOD SPECIMENOrdering Facility: [facility] Address: [address] [place], [place] [address] Performed By: #### A LLMG ####[facility] LABCLIA [id number] [place] [address] [place] pH adjusted to patient's actual temperature (Bld) 7.41 Normal 7.35-7.45 [facility] Comment on above: Order Comment: Speci men Type: ARTERIAL BLOOD SPECIMENOrdering Facility: [facility] Address: [address] [place] [address] Performed By: #### A LLMG ####[facility] [id number] [place] [address] [place] Potassium [Moles/Vol] 4.2 mmol/L Normal 3.5-5.0 [facility] Comment on above: Order Comment: Speci men Type: ARTERIAL BLOOD SPECIMENOrdering Facility: [facility] Address: [address] [place] [address] Performed By: #### A LLMG ####[facility] [id number] [place] [address] [place] Sodium [Moles/Vol] 137 mmol/L Normal 136-144 [facility] Comment on above: Order Comment: Speci men Type: ARTERIAL BLOOD SPECIMENOrdering Facility: [facility] Address: [address] [place] [address] Performed By: #### A LLMG ####[facility] [id number] [place] [address] [place] Base deficit (BldA) [Moles/Vol] -3 mmol/L Low -2-0 [facility] Comment on above: Order Comment: Speci men Type: ARTERIAL BLOOD SPECIMENOrdering Facility: [facility] Address: [address] [place] [address] Performed By: #### A LLMG ####[facility] [id number] [place] [address] [place] Calcium.ionized (Bld) [Mass/Vol] 1.20 mmol/L Normal 1.08-1.30 [facility] Comment on above: Order Comment: Speci men Type: ARTERIAL BLOOD SPECIMENOrdering Facility: [facility] Address: [address] [place] [address] Performed By: #### A LLMG ####[facility] LABCLIA [id number] [place] [address] [place] Calcium.ionized adjusted to pH 7.4 (BldA) [Moles/Vol] 1.19 mmol/L Normal 1.08-1.30 [facility] Comment on above: Order Comment: Speci men Type: ARTERIAL BLOOD SPECIMENOrdering Facility: [facility] Address: [address] [place] [address] Performed By: #### A LLMG ####[facility] [id number] [place] [address] [place] Carboxyhemoglobin (BldA) [Mass fraction] 1.0 % Normal 0.0-2.0 [facility] Comment on above: Order Comment: Speci men Type: ARTERIAL BLOOD SPECIMENOrdering Facility: [facility] Address: [address] [place] [address] Result Comment: Carb oxyhemoglobin Reference Range for Smokers: 2.0-8.0% Performed By: #### A LLMG ####[facility] [id number] [place] [address] [place] CO2 (Bld) [Partial pressure] 37 mm Hg Normal 36-46 [facility] Comment on above: Order Comment: Speci men Type: ARTERIAL BLOOD SPECIMENOrdering Facility: [facility] Address: [address] [place] [address] Performed By: #### A LLMG ####[facility] LABCLIA [id number] [place] [id number] [place] CO2 adjusted to patient's actual temperature (Bld) [Partial pressure] 37 mmHg Normal 36-46 [facility] Comment on above: Order Comment: Speci men Type: ARTERIAL BLOOD SPECIMENOrdering Facility: [facility] Address: [address] [place] [address] Performed By: #### A LLMG ####[facility] LABCLIA [id number] [place] [address] [place] Glucose [Mass/Vol] 114 mg/dL High 60-105 [facility] Comment on above: Order Comment: Speci men Type: ARTERIAL BLOOD SPECIMENOrdering Facility: [facility] Address: [address] [place] [address] Performed By: #### A LLMG ####[facility] LABCLIA [id number] [place] [address] [place] HCO3 (Bld) [Moles/Vol] 21 mmol/L Low 22-26 [facility] Comment on above: Order Comment: Speci men Type: ARTERIAL BLOOD SPECIMENOrdering Facility: [facility] Address: [address] [place] [address] Performed By: #### A LLMG ####[facility] LABCLIA [id number] [place] [address] [place] Hematocrit (Bld) [Volume fraction] 35.4 % Low 36.0-46.0 [facility] Comment on above: Order Comment: Speci men Type: ARTERIAL BLOOD SPECIMENOrdering Facility: [facility] Address: [address] [place] [address] Performed By: #### A LLMG ####[facility] LABCLIA [id number] [place] [id number] [place] Hemoglobin (Bld) [Mass/Vol] 11.5 g/dL Normal 11.5-15.5 [facility] Comment on above: Order Comment: Speci men Type: ARTERIAL BLOOD SPECIMENOrdering Facility: [facility] Address: [address] [place] [address] Performed By: #### A LLMG ####[facility] LABCLIA [id number] [place] [id number] [place] Lactate [Moles/Vol] 0.9 mmol/L Normal 0.5-2.2 [facility] Comment on above: Order Comment: Speci men Type: ARTERIAL BLOOD SPECIMENOrdering Facility: [facility] Address: [address] [place] [address] Performed By: #### A LLMG ####[facility] LABCLIA [id number] [place] [id number] [place] Magnesium [Moles/Vol] 0.72 mmol/L High 0.45-0.60 [facility] Comment on above: Order Comment: Speci men Type: ARTERIAL BLOOD SPECIMENOrdering Facility: [facility] Address: [address] [place] [address] Performed By: #### A LLMG ####[facility] [id number] [place] [id number] [place] Methemoglobin (Bld) [Mass fraction] 1.6 % High 0.0-1.5 [facility] Comment on above: Order Comment: Speci men Type: ARTERIAL BLOOD SPECIMENOrdering Facility: [facility] Address: [address] [place] [address] Performed By: #### A LLMG ####[facility] [id number] [place] [id number] [place] Oxygen (Bld) [Partial pressure] 299 mm Hg High 85-95 [facility] Comment on above: Order Comment: Speci men Type: ARTERIAL BLOOD SPECIMENOrdering Facility: [facility] Address: [address] [place], [place] [address] Performed By: #### A LLMG ####[facility]CLIA [id number] [place] [id number] [place] Oxygen adjusted to patient's actual temperature (Bld) [Partial pressure] 299 mmHg High 85-95 [facility] Comment on above: Order Comment: Speci men Type: ARTERIAL BLOOD SPECIMENOrdering Facility: [facility] Address: [address] [place] [address] Performed By: #### A LLMG ####[facility] LABCLIA [id number] [place] [address] [place] Oxyhemoglobin (BldA) [Mass fraction] 97 % Normal 95-98 [facility] Comment on above: Order Comment: Speci men Type: ARTERIAL BLOOD SPECIMENOrdering Facility: [facility] Address: [address] [place] [address] Performed By: #### A LLMG ####[facility] [id number] [place] [address] [place] pH (Bld) 7.38 [pH] Normal 7.35-7.45 [facility] Comment on above: Order Comment: Speci men Type: ARTERIAL BLOOD SPECIMENOrdering Facility: [facility] Address: [address] [place] [address] Performed By: #### A LLMG ####[facility] [id number] [place] [address] [place] pH adjusted to patient's actual temperature (Bld) 7.38 Normal 7.35-7.45 [facility] Comment on above: Order Comment: Speci men Type: ARTERIAL BLOOD SPECIMENOrdering Facility: [facility] Address: [address] [place] [address] Performed By: #### A LLMG ####[facility]CLIA [id number] [place] [id number] [place] Potassium [Moles/Vol] 4.2 mmol/L Normal 3.5-5.0 [facility] Comment on above: Order Comment: Speci men Type: ARTERIAL BLOOD SPECIMENOrdering Facility: [facility] Address: [address] [place] [address] Performed By: #### A LLMG ####[facility]CLIA [id number] [address] [address] [place] Sodium [Moles/Vol] 139 mmol/L Normal 136-144 [facility] Comment on above: Order Comment: Speci men Type: ARTERIAL BLOOD SPECIMENOrdering Facility: [facility] Address: [address] [place] [address] Performed By: #### A LLMG ####[facility]CLIA [id number] [place] [address] [place] Basic metabolic 2000 panelon 02-20-2025 Anion gap [Moles/Vol] 12 mmol/L Normal 8-15 [facility] Comment on above: Order Comment: Speci men Type: BLOOD SPECIMENOrdering Facility: [facility] Address: [address] [place] [address] Performed By: #### 2 4321-2 ####[facility]CL[facility] [id number] [place] [address] [place] Calcium [Mass/Vol] 9.4 mg/dL Normal 8.5-10.2 [facility] Comment on above: Order Comment: Speci men Type: BLOOD SPECIMENOrdering Facility: [facility] Address: [address] [place] [address] Performed By: #### 2 4321-2 ####[facility]CL[facility] [id number] [place] [address] [place] Chloride [Moles/Vol] 105 mmol/L Normal 98-107 [facility] Comment on above: Order Comment: Speci men Type: BLOOD SPECIMENOrdering Facility: [facility] Address: [address] [place] [address] Performed By: #### 2 4321-2 ####[facility]CLIA [id number] [facility] [place] [id number] [place] CO2 [Moles/Vol] 20 mmol/L Low 22-30 [facility] Comment on above: Order Comment: Speci men Type: BLOOD SPECIMENOrdering Facility: [facility] Address: [address] [place] [id number] Performed By: #### 2 4321-2 ####[facility] [id number] [place] [id number] [place] Creatinine [Mass/Vol] 0.90 mg/dL Normal 0.58-0.96 [facility] Comment on above: Order Comment: Speci men Type: BLOOD SPECIMENOrdering Facility: [facility] Address: [address] [place] [address] Performed By: #### 2 4321-2 ####[facility] [id number] [place] [address] [place] Creatinine and Glomerular filtration rate.predicted panel (S/P/Bld) 80 mL/min/1.73m??? Normal >=60 [facility] Comment on above: Order Comment: Speci men Type: BLOOD SPECIMENOrdering Facility: [facility] Address: [address] [place] [address] Result Comment: Heather mated Glomerular Filtration Rate [...] actual GFR. Performed By: #### 2 4321-2 ####[facility] [id number] [place] [id number] [place] Glucose [Mass/Vol] 94 mg/dL Normal 74-99 [facility] Comment on above: Order Comment: Speci men Type: BLOOD SPECIMENOrdering Facility: [facility] Address: [address] [place] [address] Result Comment: The [place] Diabetes Association (ADA) provides guidance for cutoff [...] Standards of Medical Care in Diabetes 2016, [place] [employer]. Diabetes Care. 2016.39(Suppl 1). Performed By: #### 2 4321-2 ####[facility] [id number] [place] [address] [place] Potassium [Moles/Vol] 4.1 mmol/L Normal 3.7-5.1 [facility] Comment on above: Order Comment: Speci men Type: BLOOD SPECIMENOrdering Facility: [facility] Address: [address] [place] [address] Performed By: #### 2 4321-2 ####[facility] [id number] [place] [id number] [place] Sodium [Moles/Vol] 137 mmol/L Normal 136-144 [facility] Comment on above: Order Comment: Speci men Type: BLOOD SPECIMENOrdering Facility: [facility] Address: [address] [place] [address] Performed By: #### 2 4321-2 ####[facility] [id number] [place] [id number] [place] Urea nitrogen [Mass/Vol] 11 mg/dL Normal 7-21 [facility] Comment on above: Order Comment: Speci men Type: BLOOD SPECIMENOrdering Facility: [facility] Address: [address] [place] [address] Performed By: #### 2 4321-2 ####[facility] [id number] [address] [address] [place] OPERATIVE NOon 02-20-2025 OPERATIVE NO HNO ID: [id number] Author: ERIK PINEDA MD Service: Neurosurgery Author Type: Physician Type: Operative Report Filed: 02/21/2025 09:26 Note Text: OPERATIVE/PROCEDURE REPORT LOG ID: [id number] SURGERY/PROCEDURE DATE: 02/20/2025 INCISION/PROCEDURE START TIME: 1:29 PM INCISION CLOSE/PROCEDURE END TIME: 4:07 PM SURGEON(S)/PROCEDURAL IST(S) AND SENIOR FUND ACCOUNTANT(S): Surgeons and Role: * Erik Pineda MD [...] the OR table. The neuronavigation system using ADENTS HTI was then registered and accuracy was confirmed using external anatomical landmarks and previous imaging in the PACS system. IV antibiotics, steroids, and Keppra were then administered. The patient was then prepped and draped in standard fashion for cranial surgery. A timeout was then performed in accordance with [facility] operative protocols. A right frontotemporal craniotomy [...] was then marked with a bone pencil. [place] holes were then placed in strategic places. Bony fragments were freed. The underlying dura was then stripped using a #3 [place]. Using a high speed air drill with [...] the bone was drilled using a reynold aline. The dura over tumor was then opened. [...] PM IMPLA (more content not included)... Normal [facility] Pathology biopsy report Alexis (Tiss)on 02-20-2025 AP DISCLAIMER Normal [facility] Comment on above: Order Comment: Speci men Type: TISSUE SPECIMENOrdering Facility: [facility] Address: [address] [place] [address] Result Comment: Leesa brandon Developed Test (LDT) Disclaimer: Performance characteristics of immunohistochemical, immunofluorescent, and chromogenic in-situ hybridization tests have been determined by the performing laboratory within [facility]'s [facility] Pathology and Laboratory Medicine Department ([facility], [facility], [facility], [facility], [facility], [facility], or [facility]) in a manner consistent with CLIA requirements. One or more of these tests may not have been cleared or approved by the FDA. [facility] is regulated under CLIA as qualified to perform high-complexity testing. These tests are used for clinical purposes. These should not be regarded as investigational or for research. Positive and negative controls stain appropriately. Performed By: #### 6 6121-5 ####[facility] [id number] [place] [address] [place] CASE REPORT Normal [facility] Comment on above: Order Comment: Speci men Type: TISSUE SPECIMENOrdering Facility: [facility] Address: [address] [place] [address] Result Comment: [facility] Pathology Report Case: [id number] Authorizing Provider: Erik Pineda MD Collected: 02/20/2025 03:13 PM Ordering Location: Admitting Received: 02/20/2025 04:45 PM Pathologist: Brody Olvera MD Specimen: Brain, Resection, right middle sphenoid wing tumor Performed By: #### 6 6121-5 ####[facility] [id number] [place] [id number] [place] CLINICAL HISTORY Normal [facility] Comment on above: Order Comment: Speci men Type: TISSUE SPECIMENOrdering Facility: [facility] Address: [address] [place] [address] Result Comment: Pre- op diagnosis: Intracranial meningioma (HCC) [D32.0] Preop testing [Z01.818] Performed By: #### 6 6121-5 ####[facility] [id number] [id number] [place] [address] DIAGNOSIS COMMENT Immunohistochemical staining of the tumor with antibodies to SSTR2a and CT was performed on block A1. The tumor shows positive staining with both antibodies, consistent with the diagnosis. A Ki-67 index of approximately 2-3% is focally noted. Normal [facility] Comment on above: Order Comment: Speci men Type: TISSUE SPECIMENOrdering Facility: [facility] Address: [address] [place] [address] Performed By: #### 6 6121-5 ####[facility] [id number] [address] FINAL DIAGNOSIS Normal [facility] Comment on above: Order Comment: Harshali sonja Type: TISSUE SPECIMENOrdering Facility: [facility] Address: [address] [place] [address] Result Comment: A. R ight middle sphenoid wing region, excision: - Morphologically consistent with meningothelial meningioma, WHO grade 1 at 1536 EDT Performed By: #### 6 6121-5 ####[facility] [id number] [place] [id number] [facility] Normal [facility] Comment on above: Order Comment: Harshali sonja Type: TISSUE SPECIMENOrdering Facility: [facility] Address: [address] [place] [address] Result Comment: Diag nostic interpretation performed at: [facility], [address] [place] [address] CLIA# [id number] Professional System Administrator: Charan Rayn MD Performed By: #### 6 6121-5 ####[facility] [id number] [address] OF [facility] GROSS DESCRIPTION Normal [facility] Comment on above: Order Comment: Speci men Type: TISSUE SPECIMENOrdering Facility: [facility] Address: [address] [place] [address] Result Comment: Angelito magdaleno, Resection Received in formalin, labeled as brain resection, right middle sphenoid wing tumor is a single bryant-brown irregular rubbery tissue measuring 2.1 x 1.3 x 0.5 cm. Sectioning reveals bryant-davidson homogenous cut surfaces. Totally submitted in cassettes A1-A2. CG February 21, 2025 10:13 AM [place] [address] Performed By: #### 6 6121-5 ####[facility] LABIA [id number] [address] OF [facility] CNPHeather 02-17-2025 CNPN Telephone (NSCAMN) KOURTNEY NOVAK ([id number]) 1975 F Date Time Provider Department 02/17/25 MARIO ALBERTO PHILLIPS [facility] During your visit today, we [...] follow up appts. Mario Alberto Phillips RN, Meter Tester Polyphase Allergies As of Date: 02/17/2025 (No Known Allergies) Date Reviewed: 02/14/2025 Reviewed by: Jace Lainez RT(R) - Fully Assessed Reason for Visit: PreOp Call [[id number]] Prescriptions as of 02/17/2025 - ondansetron orally [...] Status:Closed by MARIO ALBERTO PHILLIPS on 02/17/25 [facility] Kathy 02-15-2025 KIRTI Telephone (ALMAS) KOURTNEY NOVAK ([id number]) 1975 F Date Time Provider Department 02/15/25 MEHUL MARTIN During your visit today, we recorded the following information about you: Mehul Martin APRN.JOSSIE 02/15/2025 8:15 AM Signed Please call patient. Lab did not draw [place], A1C, or BMP. Please have her go to closest [facility] lab to have them drawn. She can go to [facility] cancer center in [place] if that is best for her thank you. Thank you, Mehul Martin APRN.Barbara Sinclair LPN 02/15/2025 8:22 AM Signed I called and spoke with patient. Relayed below message; denies questions at this time. Will go to [place] CCFany Rosenthal LPN February 15, 2025 8:22 AM Mehul Martin APRN.VARIETY LATHE OPERATOR 02/17/2025 4:16 PM Signed Lab still did not draw BMP ordered by Dr. Pineda. Labs client services unable to add. Will place DOS BMP Allergies As of Date: 02/15/2025 (No Known Allergies) Date Reviewed: 02/14/2025 Reviewed by: Jace Lainez RT(R) - Fully Assessed Reason for Visit: [...] Status:Closed by BARBARA ROSENTHAL on 02/15/25 Normal [facility] CONFIRM BLOOD TYPEon 025 ABO A Normal [facility] Comment on above: Order Comment: Speci men Type: BLOOD SPECIMENOrdering Facility: [facility] Address: [address] [place] [address] Performed By: #### C ONABO ####CC MAIN BLOOD BANKCLIA [id number] [place] [address] [place] Rh Nom (Bld) Negative Normal [facility] Comment on above: Order Comment: Speci men Type: BLOOD SPECIMENOrdering Facility: [facility] Address: [address] [place] [address] Performed By: #### C ONABO ####CC MAIN BLOOD BANKCLIA [id number] [place] [address] [place] HbA1c (Bld)on 02-15-2025 Average glucose Estimated from glycated hemoglobin (Bld) [Mass/Vol] 108 mg/dL Normal [facility] Comment on above: Order Comment: Speci men Type: BLOOD SPECIMENOrdering Facility: [facility] Address: [address] [place] [address] Result Comment: eAG: (Estimated average glucose) is a calculated value from HgbA1c and is tour sales representative of the average blood glucose level in the last 2-3 month period. Performed By: #### 5 5454-3 ####[facility] LABCLIA [id number] [place] [address] [place] HbA1c (Bld) [Mass fraction] 5.4 % Normal 4.3-5.6 [facility] Comment on above: Order Comment: Harshali men Type: BLOOD SPECIMENOrdering Facility: [facility] Address: [address] [place] [address] Result Comment: Amer ican Diabetes Association guidelines indicate that patients with HgbA1c in the range 5.7-6.4% are at increased risk for development of diabetes, and intervention by lifestyle modification may be beneficial. HgbA1c greater or equal to 6.5% is considered diagnostic of diabetes. Performed By: #### 5 5454-3 ####[facility] LABCLIA [id number] [place] [address] [place] ALT SerPl-cCncon 02-14-2025 ALT [Catalytic activity/Vol] 27 U/L Normal 7-38 [facility] Comment on above: Order Comment: Speci men Type: BLOOD SPECIMENOrdering Facility: [facility] Address: [address] [place] [address] Performed By: #### 1 742-6, 1920-8, 1987- ####[facility] LABCLIA [id number] [place] [address] [place] AST SerPl-cCncon 02-14-2025 AST [Catalytic activity/Vol] 20 U/L Normal 13-35 [facility] Comment on above: Order Comment: Speci men Type: BLOOD SPECIMENOrdering Facility: [facility] Address: [address] [place] [address] Performed By: #### 1 742-6, 192-8, 1988-01 ####[facility] LABCLIA [id number] [address] [place] [address] [place] CBC panel Auto (Bld)on 02-14 Erythrocyte distribution width (RBC) [Ratio] 13.4 % Normal 11.5-15.0 [facility] Comment on above: Order Comment: Speci men Type: BLOOD SPECIMENOrdering Facility: [facility] Address: [address] [place] [address] Performed By: #### 5 8410-2, 4537-7 ####[facility] LABIA [id number] [address] [address] [place] Hematocrit (Bld) [Volume fraction] 39.2 % Normal 36.0-46.0 [facility] Comment on above: Order Comment: Speci men Type: BLOOD SPECIMENOrdering Facility: [facility] Address: [address] [place] [address] Performed By: #### 5 8410-2, 453-7 ####[facility] LABIA [id number] [address] [place] [address] [place] Hemoglobin (Bld) [Mass/Vol] 12.6 g/dL Normal 11.5-15.5 [facility] Comment on above: Order Comment: Speci men Type: BLOOD SPECIMENOrdering Facility: [facility] Address: [address] [place] [address] Performed By: #### 5 8410-2, 4536-7 ####[facility]IA [id number] [address] [place] [address] [place] MCH (RBC) [Entitic mass] 29.9 pg Normal 26.0-34.0 [facility] Comment on above: Order Comment: Speci men Type: BLOOD SPECIMENOrdering Facility: [facility] Address: [address] [place] [address] Performed By: #### 5 8410-2, 4537-7 ####[facility]IA [id number] [place] [address] [place] MCHC (RBC) [Mass/Vol] 32.1 g/dL Normal 30.5-36.0 [facility] Comment on above: Order Comment: Speci men Type: BLOOD SPECIMENOrdering Facility: [facility] Address: [address] [place] [address] Performed By: #### 5 8410-2, 453-7 ####[facility] [id number] [place] [address] [place] MCV (RBC) [Entitic vol] 93.1 fL Normal 80.0-100.[address] [facility] Comment on above: Order Comment: Speci men Type: BLOOD SPECIMENOrdering Facility: [facility] Address: [address] [place] [address] Performed By: #### 5 8410-2, 4536-7 ####[facility] [id number] [place] [address] [place] Nucleated RBC (Bld) [#/Vol] 10*3/uL Normal <0.01 [facility] Comment on above: Order Comment: Speci men Type: BLOOD SPECIMENOrdering Facility: [facility] Address: [address] [place] [address] Performed By: #### 5 8410-2, 4536-7 ####[facility] [id number] [place] [address] [place] Platelet mean volume (Bld) [Entitic vol] 10.9 fL Normal 9.0-12.7 [facility] Comment on above: Order Comment: Speci men Type: BLOOD SPECIMENOrdering Facility: [facility] Address: [address] [place] [address] Performed By: #### 5 8410-2, 7-7 ####[facility] LABCLIA [id number] [address] [address] [place] Platelets (Bld) [#/Vol] 329 10*3/uL Normal 150-400 [facility] Comment on above: Order Comment: Speci men Type: BLOOD SPECIMENOrdering Facility: [facility] Address: [address] [place] [address] Performed By: #### 5 8410-2, 4536-7 ####[facility] LABIA [id number] [place] [address] [place] RBC (Bld) [#/Vol] 4.21 10*6/uL Normal 3.90-5.20 [facility] Comment on above: Order Comment: Speci men Type: BLOOD SPECIMENOrdering Facility: [facility] Address: [address] [place] [address] Performed By: #### 5 8410-2, 4536-7 ####[facility] LABIA [id number] [place] [address] [place] WBC (Bld) [#/Vol] 7.27 10*3/uL Normal 3.70-11.00 [facility] Comment on above: Order Comment: Speci men Type: BLOOD SPECIMENOrdering Facility: [facility] Address: [address] [place] [address] Performed By: #### 5 8410-2, 4536-7 ####[facility] LABIA [id number] [place] [address] [place] CRP SerPl-mCncon 02-14-2025 CRP [Mass/Vol] 0.6 mg/dL Normal <0.9 [facility] Comment on above: Order Comment: Speci men Type: BLOOD SPECIMENOrdering Facility: [facility] Address: [address] [place] [address] Performed By: #### 1 742-6, 1920-8, 1987- ####[facility] LABCLIA [id number] [address] OF [place] DBC24ic 02-14-2025 ECG01 Ventricular Rate : 7 7 BPM Atrial Rate : 77 BPM P-R Interval : 138 ms QRS Duration : 82 ms Q-T Interval : 386 ms QTC Calculation(Bazett) : 436 ms Calculated P Munford : 36 degrees Calculated R Munford : 47 degrees Calculated T Munford : 47 degrees NORMAL SINUS RHYTHM NORMAL ECG Confirmed by DI YORK M.D. ([id number]) on 02/14/2025 1:23:03 PM NAME : KOURTNEY NOVAK PID : [id number] : 1975 Gender : Female Race : [...] ERIK PINEDA Acquired by : am, Normal [facility] ESR Westergren method (Bld) [Velocity]on 02-14-2025 ESR (Bld) [Velocity] 2 mm/h Normal 0-20 [facility] Comment on above: Order Comment: Speci men Type: BLOOD SPECIMENOrdering Facility: [facility] Address: [address] [place] [address] Performed By: #### 5 8410-2, 4537-7 ####[facility] LABCLIA [id number] [address] OF [place] HISTORY PHYSICALon HISTORY PHYSICAL HNO ID: [id number] Author: MEHUL MARTIN APRN.VARIETY LATHE OPERATOR Service: ? Author Type: Nurse Practitioner Type: [...] [facility] rheumatology COPD (chronic obstructive pulmonary disease) ([facility]) Assessment: Stable with nebulizer treatments Denies any SOB Denies any Home oxygen use Lungs clear on exam SpO2 in office today 96% Monitored by PCP MAREK (obstructive sleep apnea) Assessment: Does not use CPAP Mixed hyperlipidemia Assessment: Compliant with Statin GERD (gastroesophageal reflux disease) Assessment: Controlled with dexilant Hypothyroidism Assessment: Controlled with levothyroxine Diabetes mellitus ([facility]) Assessment: Complaint with oral medications -A1C ordered today Instructions provided to patient on how long to hold diabetic medications prior to procedure Anxiety Assessment: Controlled with Lamictal Class 3 severe obesity due to excess calories with serious comorbidity and body mass index (BMI) of 40.0 to 44.9 in adult ([facility]) Assessment: Body mass index is [...] of breath with the above physical activity. [id number] Score: Age: <65 Sex: female CHF history: No Hypertension history: No Stroke/TIA/thromboemb olism history: No Vascular disease history: No Diabetes history: Yes [id number] Score: 2 ARISCAT Score: Age: <=50 Preoperative [...] that was (more content not included)... 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 No acute abnormalities. Nub Card Tender: PSCB Transcribe Date/Time: Feb 14 2025 10:01A Dictated by : SEAN BLOCK MD This examination was interpreted and the report reviewed and electronically signed by: SEAN BLOCK MD on Feb 14 2025 10:22AM [facility] [[email or web address] DIVISION OF RADIOLOGY * * *Final Report* * * DATE OF EXAM: Feb 14 2025 10:37AM [facility] 0295 - MRI BRAIN WO/W [...] tissue mass extending into the of the rib puller or parapharyngeal spaces. The soft tissue planes of the, retropharyngeal, and prevertebral spaces are maintained. The visualized parotid glands are normal in appearance. Nasopharynx/Oropharyn x: The nasopharynx and oropharynx are normal in appearance. DIVISION OF RADIOLOGY Provider, [facility] Dottie [facility] - 02/14/2025 * * *Final Report* * * DATE OF EXAM: Feb 14 2025 10:37AM [facility] 0295 - MRI BRAIN WO/W IVCON / [...] tissue mass extending into the of the rib puller or parapharyngeal spaces. The soft tissue planes [...] exam in November 2015. No acute abnormalities. Nub Card Tender: [facility] Transcribe Date/Time: Feb 14 2025 10:01A Dictated by : SEAN BLOCK MD This examination was interpreted and the report reviewed and electronically signed by: SEAN BLOCK MD on Feb 14 2025 10:22AM [facility] Radiology Study observation (narrative) Elisa rivera [facility] MR Brain WO and W contrast I VOrdered By: [facility]cf Provider on 02-14-2025 [facility] MRI BRAIN WO/W IVCONon 02-14 MRI BRAIN WO/W IVCON * * *Final Report* * * DATE OF EXAM: Feb 14 2025 10:37AM [facility] 0295 - MRI BRAIN WO/W [...] tissue mass extending into the of the rib puller or parapharyngeal spaces. The soft tissue planes [...] exam in November 2015. No acute abnormalities. Nub Card Tender: PSCB Transcribe Date/Time: Feb 14 2025 10:01A Dictated by : SEAN BLOCK MD This examination was interpreted and the report reviewed and electronically signed by: SEAN BLOCK MD on Feb 14 2025 10:22AM EST [id number] N Normal [facility] STAPHYLOCOCCUS AUREUS AND MR SA SCREEN, PCR, NASALon 02-14-2025 S. aureus and MRSA panel RADHA+probe (Nose) Not detected Normal Not Detected [facility] Comment on above: Order Comment: Speci men Type: SWABOrdering Facility: [facility] Address: [address] [place] [address] Performed By: #### S APCR ####[facility] LABCLIA [id number] [place] [address] [place] TYPE AND SCREEN,30 DAYon ABO A Normal [facility] Comment on above: Order Comment: Speci men Type: BLOOD SPECIMENOrdering Facility: [facility] Address: [address] [place] [address] Performed By: #### T SCR30 ####CC [facility] BLOOD BANKCLIA [id number] [place] [address] [place] Rh Nom (Bld) Negative Normal [facility] Comment on above: Order Comment: Speci men Type: BLOOD SPECIMENOrdering Facility: [facility] Address: [address] [place] [address] Performed By: #### T SCR30 ####CC [facility] [id number] [place] [address] [place] US renal BIon 02-10-2025 US renal BI [facility] [place] [address] [place] [address] Ultrasound Report Signed Patient: Kourtney Novak MR#: [id number] : 1975 Acct:[id number] Age/Sex: 49 / F ADM Date: 02/10/25 Loc: Room: Type: [facility] Attending Dr: Sammie Gonzalez MD Ordering [...] Gray M.D. 02/10/2025 4:44 PM Dictation Location: [place] [address] Tech: Vani Baker Transcribed By: [facility] 02/10/25 164 Dictated By: George Gray DO 02/10/251642 Signed By: 02/10/25 164 Normal [facility] CNOVon 12-28-2024 CNOV Office Visit (RHEUAV ) KOURTNEY NOVAK ([id number]) 1975 F Date Time Provider Department 12/28/24 [...] air moveme (more content not included)... Normal [facility] X-ray reportOrdered By: Quirino Hoffmann on 12-27-2024 Study report [facility] [address] [place] [address] XRay Report Signed Patient: Kourtney Novak MR#: [id number] : 1975 Acct:[id number] Age/Sex: 49 / F ADM Date: 5 Loc: [facility] Room: Type: [facility] Attending Dr: Elyssa Gomes MD Copies [...] Lincoln Hoffmann M.D.12/27/2024 4:47 PM Dictation Location: RADIO-PC-29 Transcribed By: GRACIE 12/27/241646 Dictated By: Lincoln Hoffmann MD 12/27/241642 Signed By: 12/27/241646 [facility] Work Phone: XR wrist RT min 3V*on 2024 XR wrist RT min 3V* [facility] [address] [place] [address] XRay Report Signed Patient: Kourtney Novak MR#: [id number] : 1975 Acct:[id number] Age/Sex: 49 / F ADM Date: 12/27/24 Loc: [facility] Room: Type: [facility] Attending Dr: Elyssa Gomes MD Copies [...] Lincoln Hoffmann M.D.12/27/2024 4:47 PM Dictation Location: RADIO-PC-29 Transcribed By: GRACIE 12/27/241646 Dictated By: Lincoln Hoffmann MD 12/27/241642 Signed By: 04/15/25 1647 Normal [facility] Basophils Auto (Bld) [#/Vol] Ordered By: Sammie Gonzalez on 12-13-2024 Basophils (Bld) [#/Vol] Automated basoph il count 0.0-0.2 [facility] Basophils/100 WBC Auto (Bld) Ordered By: Sammie Gonzalez on 12-13-2024 Basophils/100 WBC (Bld) Automated basophil % . [facility] Complete Blood Count Auto Di ffon 12-13-2024 Basophils (Bld) [#/Vol] 0.1 10*3/uL Normal 0.0-0.2 [facility] Comment on above: Result Comment: PERF ORMED BY: [facility] [address] [place] [address] PATHOLOGIST [employer] CONSULTANT PAKO RAMACHANDRAN M.D. Performed By: #### F E, MARIELLA, CBC ####[address] Basophils/100 WBC (Bld) 1.0 % Normal . [facility] Comment on above: Performed By: #### F E, MARIELLA, CBC ####[address] Eosinophils (Bld) [#/Vol] 0.2 10*3/uL Normal 0.0-0.45 [facility] Comment on above: Performed By: #### F E, MARIELLA, CBC ####[address] Eosinophils/100 WBC (Bld) 2.7 % Normal . [facility] Comment on above: Performed By: #### F E, MARIELLA, CBC ####[address] Erythrocyte distribution width (RBC) [Ratio] 13.3 % Normal 11.9-15.3 [facility] Comment on above: Performed By: #### F E, MARIELLA, CBC ####[address] Hematocrit (Bld) [Volume fraction] 38.5 % Normal 34.0-46.4 [facility] Comment on above: Performed By: #### F E, MARIELLA, CBC ####[address] Hemoglobin (Bld) [Mass/Vol] 12.7 g/dL Normal 11.8-15.4 [facility] Comment on above: Performed By: #### F E, MARIELLA, CBC ####[address] Lymphocytes (Bld) [#/Vol] 2.6 10*3/uL Normal 1.00-4.8 [facility] Comment on above: Performed By: #### F E, MARIELLA, CBC ####[address] Lymphocytes/100 WBC (Bld) 30.8 % Normal . [facility] Comment on above: Performed By: #### F E, MARIELLA, CBC ####[address] MCH (RBC) [Entitic mass] 30.2 pg Normal 24.7-34.3 [facility] Comment on above: Performed By: #### F E MARIELLA, CBC ####[address] MCV (RBC) [Entitic vol] 91.4 fL Normal 80-100 [facility] Comment on above: Performed By: #### F E, MARIELLA, CBC ####[address] Mean Corpuscular HGB Conc 33.1 g/dL Normal 32.0-35.0 [facility] Comment on above: Performed By: #### F E, MARIELLA, CBC ####[address] Monocytes (Bld) [#/Vol] 0.9 10*3/uL High 0.0-0.8 [facility] Comment on above: Performed By: #### F E, MARIELLA, CBC ####[place] [address] [place] Monocytes/100 WBC (Bld) 11.1 % Normal . [facility] Comment on above: Performed By: #### F E, MARIELLA, CBC ####[address] Neutrophils (Bld) [#/Vol] 4.6 10*3/uL Normal 1.8-7.7 [facility] Comment on above: Performed By: #### F E, MARIELLA, CBC ####[address] Neutrophils/100 WBC (Bld) 54.4 % Normal . [facility] Comment on above: Performed By: #### F E, MARIELLA, CBC ####[address] NRBC% 0.1 /100{WBC} Normal 0-0.5 [facility] Comment on above: Performed By: #### F E, MARIELLA, CBC ####[address] Platelet mean volume (Bld) [Entitic vol] 8.6 fL Normal 6.3-10.7 The [facility] Comment on above: Performed By: #### F E, MARIELLA, CBC ####[address] Platelets (Bld) [#/Vol] 372 10*3/uL Normal 150-450 [facility] Comment on above: Performed By: #### F E, MARIELLA, CBC ####[address] RBC (Bld) [#/Vol] 4.22 10*6/uL Normal 3.60-5.00 The [facility] Comment on above: Performed By: #### F E, MARIELLA, CBC ####[address] WBC (Bld) [#/Vol] 8.5 10*3/uL Normal 3.8-11.6 The [facility] Comment on above: Performed By: #### F E, MARIELLA, CBC ####[place] [address] [place] [address] [facility] Eosinophils Auto (Bld) [#/Vo l]Ordered By: Sammie Gonzalez on 12-13-2024 Eosinophils (Bld) [#/Vol] Automated eosinophil count 0.0-0.45 [facility] Eosinophils/100 WBC Auto (Bl d)Ordered By: Sammie Gonzalez on 12-13-2024 Eosinophils/100 WBC (Bld) Automated eosinophil % . [facility] Erythrocyte distribution wid th Auto (RBC) [Ratio]Ordered By: Sammie Gonzalez on 12-13-2024 Erythrocyte distribution width (RBC) [Ratio] Erythrocyte distribution width [Ratio] by Automated count 11.9-15.3 [facility] Ferritinon 12-13-2024 Ferritin [Mass/Vol] 56.2 ng/mL Normal 11.0-306.8 [facility] Comment on above: Result Comment: PERF ORMED BY: [facility] [address] [place] [id number] PATHOLOGIST [employer] CONSULTANT PAKO RAMACHANDRAN M.D. Performed By: #### F E, MARIELLA, CBC ####[place] [address] [place] [address] [facility] Ferritin [Mass/volume] in Se rum or PlasmaOrdered By: Sammie Gonzalez on 12-13-2024 Ferritin [Mass/Vol] Ferritin [Mass/volume] in Serum or Plasma 11.0-306.8 [facility] Hematocrit Auto (Bld) [Volum e fraction]Ordered By: Sammie Gonzalez on 12-13-2024 Hematocrit (Bld) [Volume fraction] Hematocrit [Volume Fraction] of Blood by Automated count 34.0-46.4 [facility] Hemoglobin [Mass/volume] in BloodOrdered By: Sammie Gonzalez on 12-13-2024 Hemoglobin (Bld) [Mass/Vol] Hemoglobin [Mass/volume] in Blood 11.8-15.4 [facility] Ironon 12-13-2024 Iron [Mass/Vol] 37 ug/dL Low 50-212 [facility] Comment on above: Performed By: #### F E, MARIELLA, CBC ####[facility] [id number] [place] [address] [facility] Iron [Mass/volume] in Serum or PlasmaOrdered By: Sammie Gonzalez on 12-13-2024 Iron [Mass/Vol] Iron [Mass/volume] i n Serum or Plasma Low 50-212 [facility] Leukocytes [#/volume] correc jana for nucleated erythrocytes in Blood by Automated counOrdered By: Sammie Gonzalez on 12-13-2024 WBC corrected for nucl RBC Auto (Bld) [#/Vol] Leukocytes [#/volume] corrected for nucleated erythrocytes in Blood by Automated coun 3.8-11.6 [facility] Lymphocytes Auto (Bld) [#/Vo l]Ordered By: Sammie Gonzalez on 12-13-2024 Lymphocytes (Bld) [#/Vol] Lymphocytes [#/volume] in Blood by Automated count 1.00-4.8 [facility] Lymphocytes/100 WBC Auto (Bl d)Ordered By: Sammie Gonzalez on 12-13-2024 Lymphocytes/100 WBC (Bld) Lymphocytes/100 leukocytes in Blood by Automated count . [facility] MCH Auto (RBC) [Entitic mass ]Ordered By: Sammie Gonzalez on 12-13-2024 MCH (RBC) [Entitic mass] MCH [Entitic mass] by Automated count 24.7-34.3 [facility] MCHC Auto (RBC) [Mass/Vol]Or dered By: Sammie Gonzalez on 12-13-2024 MCHC (RBC) [Mass/Vol] MCHC [Mass/volume] by Automated count 32.0-35.0 [facility] MCV Auto (RBC) [Entitic vol] Ordered By: Sammie Gonzalez on 12-13-2024 MCV (RBC) [Entitic vol] MCV [Entitic vol ume] by Automated count 80-100 [facility] Monocytes Auto (Bld) [#/Vol] Ordered By: Sammie Gonzalez on 12-13-2024 Monocytes (Bld) [#/Vol] Automated blood monocyte count High 0.0-0.8 [facility] Monocytes/100 WBC Auto (Bld) Ordered By: Sammie Gonzalez on 12-13-2024 Monocytes/100 WBC (Bld) Automated monocyte % . [facility] Neutrophils Auto (Bld) [#/Vo l]Ordered By: Sammie Gonzalez on 12-13-2024 Neutrophils (Bld) [#/Vol] Neutrophils [#/volume] in Blood by Automated count 1.8-7.7 [facility] Neutrophils/100 WBC Auto (Bl d)Ordered By: Sammie Gonzalez on 12-13-2024 Neutrophils/100 WBC (Bld) Automated neutrophil % . [facility] Nucleated erythrocytes [Pres ence] in Blood by Automated countOrdered By: Sammie Gonzalez on 12-13-2024 Nucleated RBC Auto Ql (Bld) Nucleated erythrocytes [Presence] in Blood by Automated count 0-0.5 [facility] Platelet mean volume Auto (B ld) [Entitic vol]Ordered By: Sammie Gonzalez on 12-13-2024 Platelet mean volume (Bld) [Entitic vol] Platelet mean volume [Entitic volume] in Blood by Automated count 6.3-10.7 [facility] Platelets Auto (Bld) [#/Vol] Ordered By: Sammie Gonzalez on 12-13-2024 Platelets (Bld) [#/Vol] Platelets [#/vol ume] in Blood by Automated count 150-450 [facility] RBC Auto (Bld) [#/Vol]Ordere d By: Sammie Gonzalez on 12-13-2024 RBC (Bld) [#/Vol] Erythrocytes [#/volume] in Blood by Automated count 3.60-5.00 [facility] WBC Auto (Bld) [#/Vol]Ordere d By: Sammie Gonzalez on 12-13-2024 WBC (Bld) [#/Vol] Leukocytes [#/volume ] in Blood by Automated count 3.8-11.6 [facility] CNPNon 12-05-2024 KIRTI Telephone ([facility]) KOURTNEY NOVAK ([id number]) 1975 F Date Time Provider Department 12/05/24 MARIO ALBERTO PHILLIPS NSCAMN During your visit today, we recorded the following information about you: Mario Alberto Phillips, VENUS 12/05/2024 10:07 AM Signed Left a detailed [...] for questions/concerns/up dates. Mario Alberto Phillips RN, Meter Tester Polyphase Allergies As of Date: 12/05/2024 (No Known Allergies) Date Reviewed: 05/30/2024 Reviewed by: Saritha Keith MA - Fully Assessed Reason for Visit: Care Coordination [4225] Cmt: Karthik Follow up - Surgery Planning [...] by MARIO ALBERTO PHILLIPS on 12/05/24 Normal [facility] X-ray reportOrdered By: Samuel Gray on 11-03-2024 Study report [facility] [address] [place] [address] XRay Report Signed Patient: Kourtney Novak MR#: [id number] : 1975 Acct:[id number] Age/Sex: 48 / F ADM Date: 5 [place] [facility] [place]: Type: [facility] Attending Dr: Mk Broderick MD Copies [...] George Gray M.D.11/03/2024 4:19 PM Dictation Location: RADIO-PC-23 Transcribed By: GRACIE 11/03/24 161 Dictated By: George Gray DO 11/03/241617 Signed By: 11/03/24 161 [facility] XR shoulder LT min 2V*on XR shoulder LT min 2V* [facility] [address] [place] [address] XRay Report Signed Patient: Kourtney Novak MR#: [id number] : 1975 Acct:[id number] Age/Sex: 48 / F ADM Date: 11/03/24 Loc: [facility] [place] Room: Type: [facility] Attending Dr: Mk Broderick MD Copies [...] George Gray M.D.11/03/2024 4:19 PM Dictation Location: RADIO-PC-23 Transcribed By: GRACIE 11/03/241618 Dictated By: George Gray DO 11/03/241617 Signed By: 11/03/24 161 [facility] Kathy 10-10-2024 KIRTI Telephone ([facility]) KOURTNEY NOVAK ([id number]) 1975 F Date Time Provider Department 10/10/24 ZEINAB WOOD During your visit today, we recorded the following information about you: Susy Escamilla LPN 10/10/2024 4:11 PM Addendum Received fax from [facility]. States that diagnosis code M19.9 ( inflammatory arthritis ) does not pass medical necessity for the [address]184 regarding CBC test. They needs a different order to be placed with another diagnosis code. Please fax to Jimbo Whitten at [phone]. Notice sent to scanning . Please route to [facility] nurse for follow up Susy Escamilla LPN 10/10/2024 5:01 PM Signed Faxed new order with updated diagnosis code . sent to [phone]. Allergies As of Date: 10/10/2024 (No Known Allergies) Date Reviewed: 05/30/2024 Reviewed by: Saritha Keith MA - Fully Assessed Reason for Visit: Meter Tester Polyphase - Other [3602] Cmt: Lab order problem Primary Visit Diagnosis:Encounter for medication monitoring [Z51.81] Order(s):ASPARTATE AMINOTRANSFERASE/SGOT [SQAST] Order #: [id number] STANDING ALANINE AMINOTRANSFERASE / SGPT [SQALT] Order #: [id number] STANDING COMPLETE BLOOD COUNT [SQCBC] Order #: [id number] STANDING SEDIMENTATION RATE, WESTERGREN [SQWSR] Order #: [id number] STANDING C-REACTIVE PROTEIN [SQCRP] Order #: [id number] STANDING Prescriptions as of 10/10/2024 - DULoxetine [...] Status:Closed by SUSY ESCAMILLA on 10/10/24 Normal [facility] Alanine Aminotransferaseon 0 - ALT [Catalytic activity/Vol] 21 U/L Normal 7-52 [facility] Comment on above: Order Comment: PIPER YANCEY Performed By: #### E SR, CBC, CRP, AST, ALT #### [facility] [address] Alanine aminotransferase [En zymatic activity/volume] in Serum or PlasmaOrdered By: Zeinab Wood on 09-20-2024 ALT [Catalytic activity/Vol] Alanine aminotransferase [Enzymatic activity/volume] in Serum or Plasma 7-52 [facility] Aspartate Amino Transferaseo n 09-20-2024 AST [Catalytic activity/Vol] 14 U/L Normal 13-39 [facility] Comment on above: Order Comment: PIPER YANCEY Performed By: #### E SR, CBC, CRP, AST, ALT #### [facility] [address] Aspartate aminotransferase [ Enzymatic activity/volume] in Serum or PlasmaOrdered By: Zeinab Wood on 09-20-2024 AST [Catalytic activity/Vol] Aspartate aminotransferase [Enzymatic activity/volume] in Serum or Plasma 13-39 [facility] Basophils Auto (Bld) [#/Vol] Ordered By: Zeinab Wood on 09-20-2024 Basophils (Bld) [#/Vol] Automated basoph il count 0.0-0.2 [facility] Basophils/100 WBC Auto (Bld) Ordered By: Zeinab Wood on 09-20-2024 Basophils/100 WBC (Bld) Automated basophil % . [facility] C reactive protein [Mass/vol ume] in Serum or PlasmaOrdered By: Zeinab Wood on 09-20-2024 CRP [Mass/Vol] C reactive protein [Mass/volume] in Serum or Plasma High 0.0-0.5 [facility] C-Reactive Proteinon 025 C-Reactive Protein 0.7 mg/dL High 0.0-0.5 [facility] Comment on above: Order Comment: PIPER YANCEY Result Comment: PERF ORMED BY: [facility] [address] [place] [address] PATHOLOGIST [employer] PAKO RAMACHANDRAN M.D. Performed By: #### E SR, CBC, CRP, AST, ALT #### [facility] [id number] [facility] Kathy 09-20-2024 KIRTI Telephone (MAGDALENAUAClaudette) KOURTNEY NOVAK ([id number]) 1975 F Date Time Provider Department 09/20/24 ZEINAB WOOD During your visit today, we recorded the following information about you: Susy Escamilla LPN 09/20/2024 5:47 PM Signed Lab results received from [facility] . Copy sent to scan, copy sent to provider folder for review. . Allergies As of Date: 09/20/2024 (No Known Allergies) Date Reviewed: 05/30/2024 Reviewed by: Saritha Keith MA - Fully Assessed Reason for Visit: Results [95] Cmt: Lab results from [facility] Prescriptions as of 09/21/2024 - etodolac (LODINE) [...] Status:Closed by SUSY ESCAMILLA on 09/21/24 Normal [facility] Complete Blood Count Auto Di ffon 09-20-2024 Basophils (Bld) [#/Vol] 0.0 10*3/uL Normal 0.0-0.2 [facility] Comment on above: Order Comment: PIPER YANCEY Performed By: #### E SR, CBC, CRP, AST, ALT #### [facility] [address] Basophils/100 WBC (Bld) 0.6 % Normal . [facility] Comment on above: Order Comment: PIPER YANCEY Performed By: #### E SR, CBC, CRP, AST, ALT #### [facility] [address] Eosinophils (Bld) [#/Vol] 0.1 10*3/uL Normal 0.0-0.45 [facility] Comment on above: Order Comment: [email or web address] [email or web address] Performed By: #### E SR, CBC, CRP, AST, ALT #### [address] Eosinophils/100 WBC (Bld) 1.2 % Normal . [facility] Comment on above: Order Comment: [email or web address] [email or web address] Performed By: #### E SR, CBC, CRP, AST, ALT #### [address] Erythrocyte distribution width (RBC) [Ratio] 13.0 % Normal 11.9-15.3 [facility] Comment on above: Order Comment: [email or web address] [email or web address] Performed By: #### E SR, CBC, CRP, AST, ALT #### [address] Hematocrit (Bld) [Volume fraction] 35.8 % Normal 34.0-46.4 [facility] Comment on above: Order Comment: [email or web address] [email or web address] Performed By: #### E SR, CBC, CRP, AST, ALT #### [address] Hemoglobin (Bld) [Mass/Vol] 12.0 g/dL Normal 11.8-15.4 [facility] Comment on above: Order Comment: [email or web address] [email or web address] Performed By: #### E SR, CBC, CRP, AST, ALT #### [address] Lymphocytes (Bld) [#/Vol] 2.1 10*3/uL Normal 1.00-4.8 [facility] Comment on above: Order Comment: [email or web address] [email or web address] Performed By: #### E SR, CBC, CRP, AST, ALT #### [address] Lymphocytes/100 WBC (Bld) 28.4 % Normal . [facility] Comment on above: Order Comment: [email or web address] [email or web address] Performed By: #### E SR, CBC, CRP, AST, ALT #### [address] MCH (RBC) [Entitic mass] 30.4 pg Normal 24.7-34.3 [facility] Comment on above: Order Comment: [email or web address] [email or web address] Performed By: #### E SR, CBC, CRP, AST, ALT #### [address] MCV (RBC) [Entitic vol] 90.8 fL Normal 80-100 [facility] Comment on above: Order Comment: [email or web address] [email or web address] Performed By: #### E SR, CBC, CRP, AST, ALT #### [address] Mean Corpuscular HGB Conc 33.5 g/dL Normal 32.0-35.0 [facility] Comment on above: Order Comment: [email or web address] [email or web address] Performed By: #### E SR, CBC, CRP, AST, ALT #### [address] Monocytes (Bld) [#/Vol] 1.0 10*3/uL High 0.0-0.8 [facility] Comment on above: Order Comment: [email or web address] [email or web address] Performed By: #### E SR, CBC, CRP, AST, ALT #### [address] Monocytes/100 WBC (Bld) 13.1 % Normal . [facility] Comment on above: Order Comment: [email or web address] [email or web address] Performed By: #### E SR, CBC, CRP, AST, ALT #### [address] Neutrophils (Bld) [#/Vol] 4.3 10*3/uL Normal 1.8-7.7 [facility] Comment on above: Order Comment: [email or web address] [email or web address] Performed By: #### E SR, CBC, CRP, AST, ALT #### [address] Neutrophils/100 WBC (Bld) 56.7 % Normal . [facility] Comment on above: Order Comment: [email or web address] [email or web address] Performed By: #### E SR, CBC, CRP, AST, ALT #### [address] NRBC% 0.0 /100{WBC} Normal 0-0.5 [facility] Comment on above: Order Comment: [email or web address] [email or web address] Performed By: #### E SR, CBC, CRP, AST, ALT #### [address] Platelet mean volume (Bld) [Entitic vol] 8.5 fL Normal 6.3-10.7 The [facility] Comment on above: Order Comment: [email or web address] [email or web address] Performed By: #### E SR, CBC, CRP, AST, ALT #### [address] Platelets (Bld) [#/Vol] 353 10*3/uL Normal 150-450 [facility] Comment on above: Order Comment: [email or web address] [email or web address] Performed By: #### E SR, CBC, CRP, AST, ALT #### [address] RBC (Bld) [#/Vol] 3.94 10*6/uL Normal 3.60-5.00 The [facility] Comment on above: Order Comment: [email or web address] [email or web address] Performed By: #### E SR, CBC, CRP, AST, ALT #### [address] WBC (Bld) [#/Vol] 7.5 10*3/uL Normal 3.8-11.6 [facility] Comment on above: Order Comment: [email or web address] [email or web address] Performed By: #### E SR, CBC, CRP, AST, ALT #### [address] Eosinophils Auto (Bld) [#/Vo l]Ordered By: Zeinab Wood on 09-20-2024 Eosinophils (Bld) [#/Vol] Automated eosinophil count 0.0-0.45 [facility] Eosinophils/100 WBC Auto (Bl d)Ordered By: Zeinab Wood on 09-20-2024 Eosinophils/100 WBC (Bld) Automated eosinophil % . [facility] Erythrocyte Sedimentation Ra gabriel 09-20-2024 ESR (Bld) [Velocity] 9 mm/h Normal 0-19 [facility] Comment on above: Order Comment: PIPER BOXJHARLEY Result Comment: PERF ORMED BY: [facility] [address] [facility] [place] [address] PATHOLOGIST [employer] PAKO RAMACHANDRAN M.D. Performed By: #### E SR, CBC, CRP, AST, ALT ####[facility] [id number] [id number] [facility] Erythrocyte distribution wid th Auto (RBC) [Ratio]Ordered By: Zeinab Wood on 09-20-2024 Erythrocyte distribution width (RBC) [Ratio] Erythrocyte distribution width [Ratio] by Automated count 11.9-15.3 [facility] Erythrocyte sedimentation ra te by Photometric methodOrdered By: Zeinab Wood on 09-20-2024 ESR Photometric method (Bld) [Velocity] Erythrocyte sedimentation rate by Photometric method 0-19 [facility] Hematocrit Auto (Bld) [Volum e fraction]Ordered By: Zeinab Wood on 09-20-2024 Hematocrit (Bld) [Volume fraction] Hematocrit [Volume Fraction] of Blood by Automated count 34.0-46.4 [facility] Hemoglobin [Mass/volume] in BloodOrdered By: Zeinab Wood on 09-20-2024 Hemoglobin (Bld) [Mass/Vol] Hemoglobin [Mass/volume] in Blood 11.8-15.4 [facility] Leukocytes [#/volume] correc jana for nucleated erythrocytes in Blood by Automated counOrdered By: Zeinab Wood on 09-20-2024 WBC corrected for nucl RBC Auto (Bld) [#/Vol] Leukocytes [#/volume] corrected for nucleated erythrocytes in Blood by Automated coun 3.8-11.6 [facility] Lymphocytes Auto (Bld) [#/Vo l]Ordered By: Zeinab Wood on 09-20-2024 Lymphocytes (Bld) [#/Vol] Lymphocytes [#/volume] in Blood by Automated count 1.00-4.8 [facility] Lymphocytes/100 WBC Auto (Bl d)Ordered By: Zeinab Wood on 09-20-2024 Lymphocytes/100 WBC (Bld) Lymphocytes/100 leukocytes in Blood by Automated count . [facility] MCH Auto (RBC) [Entitic mass ]Ordered By: Zeinab Wood on 09-20-2024 MCH (RBC) [Entitic mass] MCH [Entitic mass] by Automated count 24.7-34.3 [facility] MCHC Auto (RBC) [Mass/Vol]Or dered By: Zeinab Wood on 09-20-2024 MCHC (RBC) [Mass/Vol] MCHC [Mass/volume] by Automated count 32.0-35.0 [facility] MCV Auto (RBC) [Entitic vol] Ordered By: Zeinab Wood on 09-20-2024 MCV (RBC) [Entitic vol] MCV [Entitic vol ume] by Automated count 80-100 [facility] Monocytes Auto (Bld) [#/Vol] Ordered By: Zeinab Wood on 09-20-2024 Monocytes (Bld) [#/Vol] Automated blood monocyte count High 0.0-0.8 [facility] Monocytes/100 WBC Auto (Bld) Ordered By: Zeinab Wood on 09-20-2024 Monocytes/100 WBC (Bld) Automated monocyte % . [facility] Neutrophils Auto (Bld) [#/Vo l]Ordered By: Zeinab Wood on 09-20-2024 Neutrophils (Bld) [#/Vol] Neutrophils [#/volume] in Blood by Automated count 1.8-7.7 [facility] Neutrophils/100 WBC Auto (Bl d)Ordered By: Zeinab Wood on 09-20-2024 Neutrophils/100 WBC (Bld) Automated neutrophil % . [facility] Nucleated erythrocytes [Pres ence] in Blood by Automated countOrdered By: Zeinab Wood on 09-20-2024 Nucleated RBC Auto Ql (Bld) Nucleated erythrocytes [Presence] in Blood by Automated count 0-0.5 [facility] Platelet mean volume Auto (B ld) [Entitic vol]Ordered By: Zeinab Wood on 09-20-2024 Platelet mean volume (Bld) [Entitic vol] Platelet mean volume [Entitic volume] in Blood by Automated count 6.3-10.7 [facility] Platelets Auto (Bld) [#/Vol] Ordered By: Zeinab Wood on 09-20-2024 Platelets (Bld) [#/Vol] Platelets [#/vol ume] in Blood by Automated count 150-450 [facility] RBC Auto (Bld) [#/Vol]Ordere d By: Zeinab Wood on 09-20-2024 RBC (Bld) [#/Vol] Erythrocytes [#/volume] in Blood by Automated count 3.60-5.00 [facility] WBC Auto (Bld) [#/Vol]Ordere d By: Zeinab Wood on 09-20-2024 WBC (Bld) [#/Vol] Leukocytes [#/volume ] in Blood by Automated count 3.8-11.6 [facility] MM screening mammo BI w/CADo n 09-16-2024 MM screening mammo BI w/CAD [facility] [place] [address] Mammography Report Signed Patient: Kourtney Novak MR#: [id number] : 1975 Acct:[id number] Age/Sex: 48 / F ADM Date: 09/16/24 Loc: [place] Room: Type: [facility] Attending Dr: Referral Self Copies to: [...] Lincoln Hoffmann M.D.09/16/2024 2:40 PM Dictation Location: [facility] Transcribed By: GRACIE 09/16/24 1440 Dictated By: Lincoln Hoffmann MD 09/16/24 1437 Signed By: 09/16/24 1440 Normal [facility] Mammography reportOrdered By : Lincoln Hoffmann on 09-16-2024 Diagnostic imaging study [facility] [place] [address] Mammography Report Signed Patient: Kourtney Novak MR#: [id number] : 1975 Acct:[id number] Age/Sex: 48 / F ADM Date: 5 Loc: [place] Room: Type: [facility] Attending Dr: Referral Self Copies to: [...] Lincoln Hoffmann M.D.09/16/2024 2:40 PM Dictation Location: [facility] Transcribed By: GRACIE 09/16/24 1440 Dictated By: Lincoln Hoffmann MD 09/16/24 143 Signed By: 09/16/24 1440 [facility] Work Phone: Thyrotropin [Units/volume] i n Serum or PlasmaOrdered By: Sammie Gonzalez on 06-22-2024 TSH Qn 2.24 m[IU]/L Normal 0.45-5.33 [facility] Comment on above: Order Comment: PIPER ROBLERO Result Comment: PERF ORMED BY: [place] [address] PATHOLOGIST [employer] MONIK SILVESTRE M.D. Performed By: #### T SH3, T4T, T3F #### [facility] [address] [place] [address] Thyroxine (T4) [Mass/volume] in Serum or PlasmaOrdered By: Sammie Gonzalez on 06-22-2024 T4 [Mass/Vol] 11.23 ug/dL Normal 5.39-11.82 [facility] Comment on above: Order Comment: PIPER FoleyKW Performed By: #### T SH3, T4T, T3F #### [facility] [address] [place] [address] [place] Triiodothyronine (T3) Freeon 06-22-2024 Triiodothyronine (T3) Free 2.96 pg/mL Normal 2.50-3.90 [facility] Comment on above: Order Comment: PIPER STEWARTW Result Comment: PERF ORMED BY: [facility] [address] [place] [address] PATHOLOGIST [employer] MONIK SILVESTRE M.D. Performed By: #### T SH3, T4T, T3F #### [facility] [address] Triiodothyronine (T3) Free [ Mass/volume] in Serum or PlasmaOrdered By: Sammie Gonzalez on 06-22-2024 Free T3 [Mass/Vol] 2.96 pg/mL 2.50-3.90 [facility] CNOVon 05-30-2024 CNOV Office Visit (RHEUAV ) KOURTNEY NOVAK ([id number]) 1975 F Date Time Provider Department 05/30/24 [...] MEDS/THERAPIES TRIED: Plaquenil bid - started on 6/21 Prednisone- great response Savella for FM Gabapentin [...] are p (more content not included)... Normal [facility] Alanine aminotransferase [En zymatic activity/volume] in Serum or PlasmaOrdered By: Sammie Gonzalez on 05-12-2024 ALT [Catalytic activity/Vol] 17 U/L 7-52 [facility] Albumin [Mass/volume] in Ser um or Plasma by Bromocresol green (BCG) dye binding methoOrdered By: Sammie Gonzalez on 05-12-2024 Albumin BCG dye [Mass/Vol] 4.1 g/dL 3.5-5.7 [facility] Alkaline phosphatase [Enzyma tic activity/volume] in Serum or PlasmaOrdered By: Sammie Gonzalez on 05-12-2024 ALP [Catalytic activity/Vol] 42 U/L 34-104 [facility] Anisocytosis LM Ql (Bld)Orde red By: Sammie Gonzalez on 05-12-2024 Anisocytosis Ql (Bld) Slight Fir [facility] Aspartate aminotransferase [ Enzymatic activity/volume] in Serum or PlasmaOrdered By: Sammie Gonzalez on 05-12-2024 AST [Catalytic activity/Vol] 11 U/L Low 13-39 [facility] Band form neutrophils/100 WB C Manual cnt (Bld)Ordered By: Sammie Gonzalez on 05-12-2024 Band form neutrophils/100 WBC (Bld) 1 % 0-5 [facility] Basophils Auto (Bld) [#/Vol] Ordered By: Sammie Gonzalez on 05-12-2024 Basophils (Bld) [#/Vol] N/A F [facility] Basophils/100 WBC Auto (Bld) Ordered By: Sammie Gonzalez on 05-12-2024 Basophils/100 WBC (Bld) N/A F [facility] Basophils/100 WBC Manual cnt (Bld)Ordered By: Sammie Gonzalez on 05-12-2024 Basophils/100 WBC (Bld) 1 % 0-2 F [facility] Bilirubin.total [Mass/volume ] in Serum or PlasmaOrdered By: Sammie Gonzalez on 05-12-2024 Bilirubin [Mass/Vol] 0.4 mg/dL 0.3-1.0 [facility] Calcium [Mass/volume] in Ser um or PlasmaOrdered By: Sammie Gonzalez on 05-12-2024 Calcium [Mass/Vol] 9.4 mg/dL 8.6-10.3 [facility] Carbon dioxide, total [Moles /volume] in Serum or PlasmaOrdered By: Sammie Gonzalez on 05-12-2024 CO2 [Moles/Vol] 27.0 mmol/L 21.0-31.0 [facility] Chloride [Moles/volume] in S micki or PlasmaOrdered By: Sammie Gonzalez on 05-12-2024 Chloride [Moles/Vol] 101 mmol/L 98-107 [facility] Cholesterol [Mass/volume] in Serum or PlasmaOrdered By: Sammie Gonzalez on 05-12-2024 Cholesterol [Mass/Vol] 191 mg/dL 140-200 [facility] Comment on above: Chol less than 200 m g/dl low riskChol 201-239 mg/dl borderline riskChol 240 mg/dl and greater high risk Cholesterol in LDL Calc [Mas s/Vol]Ordered By: Sammie Gonzalez on 05-12-2024 Cholesterol in LDL [Mass/Vol] 76 mg/dL 0-100 [facility] Comment on above: LDL ATP III CLASSIFI CATIONLDL less than 100 mg/dL OptimalLDL 100-129 mg/dL Near or above optimalLDL 130-159 mg/dL Borderline highLDL 160-189 mg/dL HighLDL greater than 189 mg/dL Very high Cholesterol in VLDL Calc [Ma ss/Vol]Ordered By: Sammie Gonzalez on 05-12-2024 Cholesterol in VLDL [Mass/Vol] 29 mg/dL [facility] Creatinine [Mass/volume] in Serum or PlasmaOrdered By: Sammie Gonzalez on 05-12-2024 Creatinine [Mass/Vol] 1.05 mg/dL 0.60-1.20 [facility] Eosinophils Auto (Bld) [#/Vo l]Ordered By: Sammie Gonzalez on 05-12-2024 Eosinophils (Bld) [#/Vol] N/A [facility] Eosinophils/100 WBC Auto (Bl d)Ordered By: Sammie Gonzalez on 05-12-2024 Eosinophils/100 WBC (Bld) N/A [facility] Eosinophils/100 WBC Manual c nt (Bld)Ordered By: Sammie Gonzalez on 05-12-2024 Eosinophils/100 WBC (Bld) 2 % 1-3 [facility] Erythrocyte distribution wid th Auto (RBC) [Ratio]Ordered By: Sammie Gonzalez on 05-12-2024 Erythrocyte distribution width (RBC) [Ratio] 13.9 % 11.9-15.3 [facility] Folate [Mass/volume] in Seru m or PlasmaOrdered By: Sammie Gonzalez on 05-12-2024 Folate [Mass/Vol] 7.8 ng/mL >5.9 [facility] Comment on above: Folate reference ran ge: >5.9 ng/mlThe WHO technical consultation on folate and vitamin [id number] has determined that folate concentrations lessthan 4 ng/ml are considered deficient. Globulin Calc (S) [Mass/Vol] Ordered By: Sammie Gonzalez on 05-12-2024 Globulin (S) [Mass/Vol] 2.0 g/dL [facility] Glucose [Mass/volume] in Ser um or PlasmaOrdered By: Sammie Gonzalez on 05-12-2024 Glucose [Mass/Vol] 111 mg/dL High 70-100 [facility] Comment on above: ADA recommended refe rence [...] glycated hemoglobin (Bld) [Mass/Vol] 114 mg/dL [facility] Hematocrit Auto (Bld) [Volum e fraction]Ordered By: Sammie Gonzalez on 05-12-2024 Hematocrit (Bld) [Volume fraction] 39.1 % 34.0-46.4 [facility] Hemoglobin A1c percentageOrd ered By: Sammie Gonzalez on 05-12-2024 HbA1c (Bld) [Mass fraction] 5.6 % 4.3-5.6 [facility] Comment on above: Increased risk for d iabetes: 5.7 - 6.4diabetes: >6.4glycemic control for adults with diabetes: <7.0 Hemoglobin [Mass/volume] in BloodOrdered By: Sammie Gonzalez on 05-12-2024 Hemoglobin (Bld) [Mass/Vol] 12.9 g/dL 11.8-15.4 [facility] Iron [Mass/volume] in Serum or PlasmaOrdered By: Sammie Gonzalez on 05-12-2024 Iron [Mass/Vol] 80 ug/dL 50-212 [facility] Leukocytes [#/volume] correc jana for nucleated erythrocytes in Blood by Automated counOrdered By: Sammie Gonzalez on 05-12-2024 WBC corrected for nucl RBC Auto (Bld) [#/Vol] 11.8 10*3/uL High 3.8-11.6 [facility] Lymphocytes Auto (Bld) [#/Vo l]Ordered By: Sammie Gonzalez on 05-12-2024 Lymphocytes (Bld) [#/Vol] N/A [facility] Lymphocytes/100 WBC Auto (Bl d)Ordered By: Sammie Gonzalez on 05-12-2024 Lymphocytes/100 WBC (Bld) N/A [facility] Lymphocytes/100 WBC Manual c nt (Bld)Ordered By: Sammie Gonzalez on 05-12-2024 Lymphocytes/100 WBC (Bld) 28 % 18-42 [facility] MCH Auto (RBC) [Entitic mass ]Ordered By: Sammie Gonzalez on 05-12-2024 MCH (RBC) [Entitic mass] 29.9 pg 24.7-34.3 [facility] MCHC Auto (RBC) [Mass/Vol]Or dered By: Sammie Gonzalez on 05-12-2024 MCHC (RBC) [Mass/Vol] 33.0 g/dL 32.0-35.0 [facility] MCV Auto (RBC) [Entitic vol] Ordered By: Sammie Gonzalez on 05-12-2024 MCV (RBC) [Entitic vol] 90.8 fL 80-100 [facility] Metamyelocytes/100 WBC Manua l cnt (Bld)Ordered By: Sammie Gonzalez on 05-12-2024 Metamyelocytes/100 WBC (Bld) 2 % High 0-0 [facility] Microcytes LM Ql (Bld)Ordere d By: Sammie Gonzalez on 05-12-2024 Microcytes Ql (Bld) Slight [facility] Monocytes Auto (Bld) [#/Vol] Ordered By: Sammie Gonzalez on 05-12-2024 Monocytes (Bld) [#/Vol] N/A [facility] Monocytes/100 WBC Auto (Bld) Ordered By: Sammie Gonzalez on 05-12-2024 Monocytes/100 WBC (Bld) N/A [facility] Monocytes/100 WBC Manual cnt (Bld)Ordered By: Sammie Gonzalez on 05-12-2024 Monocytes/100 WBC (Bld) 12 % High 2-11 [facility] Neutrophils Auto (Bld) [#/Vo l]Ordered By: Sammie Gonzalez on 05-12-2024 Neutrophils (Bld) [#/Vol] N/A [facility] Neutrophils/100 WBC Auto (Bl d)Ordered By: Sammie Gonzalez on 05-12-2024 Neutrophils/100 WBC (Bld) N/A [facility] No Panel InformationOrdered By: Sammie Gonzalez on 05-12-2024 Estimated GFR (CKD-EPI) > 60.0 mL/Min [facility] Creatinine Clearance (Chem N/A [facility] Nucleated erythrocytes [Pres ence] in Blood by Automated countOrdered By: Sammie Gonzalez on 05-12-2024 Nucleated RBC Auto Ql (Bld) N/A [facility] Platelet adequacy [Presence] in Blood by Light microscopyOrdered By: Sammie Gonzalez on 05-12-2024 Platelets LM Ql (Bld) Normal Normal [facility] Platelet mean volume Auto (B ld) [Entitic vol]Ordered By: Sammie Gonzalez on 05-12-2024 Platelet mean volume (Bld) [Entitic vol] 8.1 fL 6.3-10.7 [facility] Platelet morphology finding [Identifier] in BloodOrdered By: Sammie Gonzalez on 05-12-2024 Platelet morphology finding Nom (Bld) Normal Normal [facility] Platelets Auto (Bld) [#/Vol] Ordered By: Sammie Gonzalez on 05-12-2024 Platelets (Bld) [#/Vol] 392 10*3/uL 150-450 [facility] Potassium [Moles/volume] in Serum or PlasmaOrdered By: Sammie Gonzalez on 05-12-2024 Potassium [Moles/Vol] 4.1 mmol/L 3.5-5.1 [facility] Protein [Mass/volume] in Ser um or PlasmaOrdered By: Sammie Gonzalez on 05-12-2024 Protein [Mass/Vol] 6.1 g/dL Low 6.4-8.9 [facility] RBC Auto (Bld) [#/Vol]Ordere d By: Sammie Gonzalez on 05-12-2024 RBC (Bld) [#/Vol] 4.30 10*6/uL 3.60-5.00 [facility] RBC morphologyOrdered By: Do erik Gonzalez on 05-12-2024 RBC morphology finding Nom (Bld) N/A [facility] Segmented neutrophils/100 WB C Manual cnt (Bld)Ordered By: Sammie Gonzalez on 05-12-2024 Segmented neutrophils/100 WBC (Bld) 54 % 50-70 [facility] Serum or plasma albumin/glob ulin mass ratioOrdered By: Sammie Gonzalez on 05-12-2024 Albumin/Globulin [Mass ratio] 2.1 {ratio} [facility] Serum or plasma anion gap de terminationOrdered By: Sammie Gonzalez on 05-12-2024 Anion gap [Moles/Vol] 12.1 mmol/L 6.0-15.0 [facility] Serum or plasma high density lipoprotein (HDL) cholesterol measurementOrdered By: Sammie Gonzalez on 05-12-2024 Cholesterol in HDL [Mass/Vol] 86 mg/dL 23-92 [facility] Comment on above: HDL CHOL ATP-III CLA SSIFICATION Cardiovascular RiskHDL > or equal to 60 mg/dL LOWHDL < 40 mg/dL HIGH Serum or plasma insulin kiara urement (units/volume)Ordered By: Sammie Gonzalez on 05-12-2024 Insulin Qn 38.1 u[iU]/mL High 2.6-24.9 [facility] Comment on above: Performed at: - [email or web address] [address] [id number] Director: Maxim Daniel PhD, Phone: [phone] Serum or plasma total choles terol/high density lipoprotein (HDL) cholesterol mass ratOrdered By: Sammie Gonzalez on 05-12-2024 Cholesterol.total/Tali sterol in HDL [Mass ratio] 2.2 {ratio} <5.0 [facility] Sodium [Moles/volume] in Ser um or PlasmaOrdered By: Sammie Gonzalez on 05-12-2024 Sodium [Moles/Vol] 136 mmol/L 136-145 [facility] Thyrotropin [Units/volume] i n Serum or PlasmaOrdered By: Sammie Gonzalez on 05-12-2024 TSH Qn 6.32 m[IU]/L High 0.45-5.33 [facility] Thyroxine (T4) [Mass/volume] in Serum or PlasmaOrdered By: Sammie Gonzalez on 05-12-2024 T4 [Mass/Vol] 11.59 ug/dL 5.39-11.82 [facility] Triglyceride [Mass/volume] i n Serum or PlasmaOrdered By: Sammie Gonzalez on 05-12-2024 Triglyceride [Mass/Vol] 146 mg/dL 0-149 [facility] Comment on above: TRIG ATP III CLASSIF ICATIONTRIG less than 150 mg/dL NormalTRIG 150-199 mg/dL Borderline highTRIG 200-500 mg/dL High TRIG greater than 500 mg/dL Very highStandard traceable to the Center for Disease Conrtrol and Prevention (CDC) test method. Triiodothyronine (T3) Free [ Mass/volume] in Serum or PlasmaOrdered By: Sammie Gonzalez on 05-12-2024 Free T3 [Mass/Vol] 3.61 pg/mL 2.50-3.90 [facility] Urea nitrogen [Mass/volume] in Serum or PlasmaOrdered By: Sammie Gonzalez on 05-12-2024 Urea nitrogen [Mass/Vol] 20 mg/dL 7-25 [facility] Vitamin B12 ser/plasOrdered By: Sammie Gonzalez on 05-12-2024 Cobalamin (Vitamin B12) [Mass/Vol] 306 pg/mL 180-914 [facility] Vitamin D+Metabolites [Mass/ volume] in Serum or PlasmaOrdered By: Sammie Gonzalez on 05-12-2024 Vitamin D+Metabolites [Mass/Vol] 39.9 ng/mL 30-100 [facility] Comment on above: VITAMIN D STATUS 25( [place])VITAMIN D RANGE (ng/mL) Deficient <20 Insufficient 20 to <30Sufficient 30 to 100Reference: Nain MF,Anum NC, Brynn APARICIO, et al. Evaluation,treatment, and prevention of vitamin D deficiency; an Endocrine Society clinical practice guideline. JCEM. 2010; 96(7):1911-30. WBC Auto (Bld) [#/Vol]Ordere d By: Sammie Gonzalez on 05-12-2024 WBC (Bld) [#/Vol] 11.8 10*3/uL High 3.8-11.[address] [facility] [address] BRAIN WO IVCONon 01-29-20 CT BRAIN WO IVCON * * *Final Report* * * DATE OF EXAM: Jan 29 2024 1:02PM [facility] 0504 - CT BRAIN WO IVCON / [...] soft tissue component identified in the orbit. Nub Card Tender: GUANACO Transcribe Date/Time: Jan 31 2024 3:33P Dictated by : NATIVIDAD PRIEST MD This examination was interpreted and the report reviewed and electronically signed by: NATIVIDAD PRIEST MD on Jan 31 2024 3:37PM EST [id number] N Normal [facility] MRI SKULL BASE WO/W IVCONon 01-29-2024 MRI SKULL BASE WO/W IVCON * * *Final Report* * * DATE OF EXAM: Jan 29 2024 1:56PM [facility] 0319 - MRI SKULL BASE WO/W [...] tissue mass extending into the of the rib puller or parapharyngeal spaces. The soft tissue planes of the, retropharyngeal, and prevertebral spaces are maintained. The visualized parotid glands are normal in appearance. Nasopharynx/Oropharyn x: The nasopharynx and oropharynx are normal in appearance. 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 Nub Card Tender: GUANACO Transcribe Date/Time: Jan 31 2024 5:10P Dictated by : WESTLEY IYER MD This examination was interpreted and the report reviewed and electronically signed by: WESTLEY IYER MD on Jan 31 2024 5:28PM EST [id number] N Normal [facility] Alanine aminotransferase [En zymatic activity/volume] in Serum or PlasmaOrdered By: Zeinab Wood on 01-08-2024 ALT [Catalytic activity/Vol] 22 U/L 7-52 [facility] Aspartate aminotransferase [ Enzymatic activity/volume] in Serum or PlasmaOrdered By: Zeinab Wood on 01-08-2024 AST [Catalytic activity/Vol] 16 U/L 13-39 [facility] Basophils Auto (Bld) [#/Vol] Ordered By: Zeinab Wood on 01-08-2024 Basophils (Bld) [#/Vol] 0.1 10*3/uL 0.0-0.2 [facility] Basophils/100 WBC Auto (Bld) Ordered By: Zeinab Wood on 01-08-2024 Basophils/100 WBC (Bld) 1.1 % . [facility] Creatinine [Mass/volume] in Serum or PlasmaOrdered By: Zeinab Wood on 01-08-2024 Creatinine [Mass/Vol] 1.00 mg/dL 0.60-1.20 [facility] Eosinophils Auto (Bld) [#/Vo l]Ordered By: Zeinab Wood on 01-08-2024 Eosinophils (Bld) [#/Vol] 0.1 10*3/uL 0.0-0.45 [facility] Eosinophils/100 WBC Auto (Bl d)Ordered By: Zeinab Wood on 01-08-2024 Eosinophils/100 WBC (Bld) 1.8 % . [facility] Erythrocyte distribution wid th Auto (RBC) [Ratio]Ordered By: Zeinab Wood on 01-08-2024 Erythrocyte distribution width (RBC) [Ratio] 13.1 % 11.9-15.3 [facility] Hematocrit Auto (Bld) [Volum e fraction]Ordered By: Zeinab Wood on 01-08-2024 Hematocrit (Bld) [Volume fraction] 39.2 % 34.0-46.4 [facility] Hemoglobin [Mass/volume] in BloodOrdered By: Zeinab Wood on 01-08-2024 Hemoglobin (Bld) [Mass/Vol] 13.1 g/dL 11.8-15.4 [facility] Leukocytes [#/volume] correc jana for nucleated erythrocytes in Blood by Automated counOrdered By: Zeinab Wood on 01-08-2024 WBC corrected for nucl RBC Auto (Bld) [#/Vol] 6.8 10*3/uL 3.8-11.6 [facility] Lymphocytes Auto (Bld) [#/Vo l]Ordered By: Zeinab Wood on 01-08-2024 Lymphocytes (Bld) [#/Vol] 2.0 10*3/uL 1.00-4.8 [facility] Lymphocytes/100 WBC Auto (Bl d)Ordered By: Zeinab Wood on 01-08-2024 Lymphocytes/100 WBC (Bld) 29.3 % . [facility] MCH Auto (RBC) [Entitic mass ]Ordered By: Zeinab Wood on 01-08-2024 MCH (RBC) [Entitic mass] 30.6 pg 24.7-34.3 [facility] MCHC Auto (RBC) [Mass/Vol]Or dered By: Zeinab Wood on 01-08-2024 MCHC (RBC) [Mass/Vol] 33.4 g/dL 32.0-35.0 [facility] MCV Auto (RBC) [Entitic vol] Ordered By: Zeinab Wood on 01-08-2024 MCV (RBC) [Entitic vol] 91.5 fL 80-100 [facility] Monocytes Auto (Bld) [#/Vol] Ordered By: Zeinab Wood on 01-08-2024 Monocytes (Bld) [#/Vol] 0.8 10*3/uL 0.0-0.8 [facility] Monocytes/100 WBC Auto (Bld) Ordered By: Zeinab Wood on 01-08-2024 Monocytes/100 WBC (Bld) 11.3 % . [facility] Neutrophils Auto (Bld) [#/Vo l]Ordered By: Zeinab Wood on 01-08-2024 Neutrophils (Bld) [#/Vol] 3.9 10*3/uL 1.8-7.7 [facility] Neutrophils/100 WBC Auto (Bl d)Ordered By: Zeinab Wood on 01-08-2024 Neutrophils/100 WBC (Bld) 56.5 % . [facility] No Panel InformationOrdered By: Zeinab Wood on 01-08-2024 Estimated GFR (CKD-EPI) > 60.0 mL/Min [facility] Creatinine Clearance (Chem N/A [facility] Nucleated erythrocytes [Pres ence] in Blood by Automated countOrdered By: Zeinab Wood on 01-08-2024 Nucleated RBC Auto Ql (Bld) 0.1 /100{WBC} 0-0.5 [facility] Platelet mean volume Auto (B ld) [Entitic vol]Ordered By: Zeinab Wood on 01-08-2024 Platelet mean volume (Bld) [Entitic vol] 8.4 fL 6.3-10.7 [facility] Platelets Auto (Bld) [#/Vol] Ordered By: Zeinab Wood on 01-08-2024 Platelets (Bld) [#/Vol] 284 10*3/uL 150-450 [facility] RBC Auto (Bld) [#/Vol]Ordere d By: Zeinab Wood on 01-08-2024 RBC (Bld) [#/Vol] 4.29 10*6/uL 3.60-5.00 [facility] WBC Auto (Bld) [#/Vol]Ordere d By: Zeinab Wood on 01-08-2024 WBC (Bld) [#/Vol] 6.8 10*3/uL 3.8-11.6 [facility] Basophils Auto (Bld) [#/Vol] Ordered By: Sammie Gonzalez on 11-11-2023 Basophils (Bld) [#/Vol] 0.1 10*3/uL 0.0-0.2 [facility] Basophils/100 WBC Auto (Bld) Ordered By: Sammie Gonzalez on 11-11-2023 Basophils/100 WBC (Bld) 1.0 % . [facility] Eosinophils Auto (Bld) [#/Vo l]Ordered By: Sammie Gonzalez on 11-11-2023 Eosinophils (Bld) [#/Vol] 0.1 10*3/uL 0.0-0.45 [facility] Eosinophils/100 WBC Auto (Bl d)Ordered By: Sammie Gonzalez on 11-11-2023 Eosinophils/100 WBC (Bld) 1.3 % . [facility] Erythrocyte distribution wid th Auto (RBC) [Ratio]Ordered By: Sammie Gonzalez on 11-11-2023 Erythrocyte distribution width (RBC) [Ratio] 13.3 % 11.9-15.3 [facility] Ferritin [Mass/volume] in Se rum or PlasmaOrdered By: Sammie Gonzalez on 11-11-2023 Ferritin [Mass/Vol] 88.4 ng/mL 11.0-306.8 [facility] Hematocrit Auto (Bld) [Volum e fraction]Ordered By: Sammie Gonzalez on 11-11-2023 Hematocrit (Bld) [Volume fraction] 39.9 % 34.0-46.4 [facility] Hemoglobin [Mass/volume] in BloodOrdered By: Sammie Gonzalez on 11-11-2023 Hemoglobin (Bld) [Mass/Vol] 13.0 g/dL 11.8-15.4 [facility] Iron [Mass/volume] in Serum or PlasmaOrdered By: Sammie Gonzalez on 11-11-2023 Iron [Mass/Vol] 93 ug/dL 50-212 [facility] Leukocytes [#/volume] correc jana for nucleated erythrocytes in Blood by Automated counOrdered By: Sammie Gonzalez on 11-11-2023 WBC corrected for nucl RBC Auto (Bld) [#/Vol] 8.7 10*3/uL 3.8-11.6 [facility] Lymphocytes Auto (Bld) [#/Vo l]Ordered By: Sammie Gonzalez on 11-11-2023 Lymphocytes (Bld) [#/Vol] 3.7 10*3/uL 1.00-4.8 [facility] Lymphocytes/100 WBC Auto (Bl d)Ordered By: Sammie Gonzalez on 11-11-2023 Lymphocytes/100 WBC (Bld) 42.6 % . [facility] MCH Auto (RBC) [Entitic mass ]Ordered By: Sammie Gonzalez on 11-11-2023 MCH (RBC) [Entitic mass] 30.0 pg 24.7-34.3 [facility] MCHC Auto (RBC) [Mass/Vol]Or dered By: Sammie Gonzalez on 11-11-2023 MCHC (RBC) [Mass/Vol] 32.6 g/dL 32.0-35.0 [facility] MCV Auto (RBC) [Entitic vol] Ordered By: Sammie Gonzalez on 11-11-2023 MCV (RBC) [Entitic vol] 92.1 fL 80-100 [facility] Monocytes Auto (Bld) [#/Vol] Ordered By: Sammie Gonzalez on 11-11-2023 Monocytes (Bld) [#/Vol] 0.9 10*3/uL 0.0-0.8 [facility] Monocytes/100 WBC Auto (Bld) Ordered By: Sammie Gnozalez on 11-11-2023 Monocytes/100 WBC (Bld) 9.8 % . [facility] Neutrophils Auto (Bld) [#/Vo l]Ordered By: Sammie Gonzalez on 11-11-2023 Neutrophils (Bld) [#/Vol] 4.0 10*3/uL 1.8-7.7 [facility] Neutrophils/100 WBC Auto (Bl d)Ordered By: Sammie Gonzalez on 11-11-2023 Neutrophils/100 WBC (Bld) 45.3 % . [facility] Nucleated erythrocytes [Pres ence] in Blood by Automated countOrdered By: Sammie Gonzalez on 11-11-2023 Nucleated RBC Auto Ql (Bld) 0.1 /100{WBC} 0-0.5 [facility] Platelet mean volume Auto (B ld) [Entitic vol]Ordered By: Sammie Gonzalez on 11-11-2023 Platelet mean volume (Bld) [Entitic vol] 9.0 fL 6.3-10.7 [facility] Platelets Auto (Bld) [#/Vol] Ordered By: Sammie Gonzalez on 11-11-2023 Platelets (Bld) [#/Vol] 363 10*3/uL 150-450 [facility] RBC Auto (Bld) [#/Vol]Ordere d By: Sammie Gonzalez on 11-11-2023 RBC (Bld) [#/Vol] 4.34 10*6/uL 3.60-5.00 [facility] WBC Auto (Bld) [#/Vol]Ordere d By: Sammie Gonzalez on 11-11-2023 WBC (Bld) [#/Vol] 8.7 10*3/uL 3.8-11.6 [facility] Alanine aminotransferase [En zymatic activity/volume] in Serum or PlasmaOrdered By: Sammie Gonzalez on 05-22-2023 ALT [Catalytic activity/Vol] 14 U/L 7-52 [facility] Albumin [Mass/volume] in Ser um or Plasma by Bromocresol green (BCG) dye binding methoOrdered By: Sammie Gonzalez on 05-22-2023 Albumin BCG dye [Mass/Vol] 4.1 g/dL 3.5-5.7 [facility] Alkaline phosphatase [Enzyma tic activity/volume] in Serum or PlasmaOrdered By: Sammie Gonzalez on 05-22-2023 ALP [Catalytic activity/Vol] 45 U/L 34-104 [facility] Aspartate aminotransferase [ Enzymatic activity/volume] in Serum or PlasmaOrdered By: Sammie Gonzalez on 05-22-2023 AST [Catalytic activity/Vol] 12 U/L 13-39 [facility] Basophils Auto (Bld) [#/Vol] Ordered By: Sammie Gonzalez on 05-22-2023 Basophils (Bld) [#/Vol] 0.1 10*3/uL 0.0-0.2 [facility] Basophils/100 WBC Auto (Bld) Ordered By: Sammie Gonzalez on 05-22-2023 Basophils/100 WBC (Bld) 0.9 % . [facility] Bilirubin.total [Mass/volume ] in Serum or PlasmaOrdered By: Sammie Gonzalez on 05-22-2023 Bilirubin [Mass/Vol] 0.3 mg/dL 0.3-1.0 [facility] Calcium [Mass/volume] in Ser um or PlasmaOrdered By: Sammie Gonzalez on 05-22-2023 Calcium [Mass/Vol] 9.5 mg/dL 8.6-10.3 [facility] Carbon dioxide, total [Moles /volume] in Serum or PlasmaOrdered By: Sammie Gonzalez on 05-22-2023 CO2 [Moles/Vol] 25.4 mmol/L 21.0-31.0 [facility] Chloride [Moles/volume] in S micki or PlasmaOrdered By: Sammie Gonzalez on 05-22-2023 Chloride [Moles/Vol] 106 mmol/L 98-107 [facility] Cholesterol [Mass/volume] in Serum or PlasmaOrdered By: Sammie Gonzalez on 05-22-2023 Cholesterol [Mass/Vol] 182 mg/dL 140-200 [facility] Comment on above: Chol less than 200 m g/dl low riskChol 201-239 mg/dl borderline riskChol 240 mg/dl and greater high risk Cholesterol in LDL Calc [Mas s/Vol]Ordered By: Sammie Gonzalez on 05-22-2023 Cholesterol in LDL [Mass/Vol] 58 mg/dL 0-100 [facility] Comment on above: LDL ATP III CLASSIFI CATIONLDL less than 100 mg/dL OptimalLDL 100-129 mg/dL Near or above optimalLDL 130-159 mg/dL Borderline highLDL 160-189 mg/dL HighLDL greater than 189 mg/dL Very high Cholesterol in VLDL Calc [Ma ss/Vol]Ordered By: Sammie Gonzalez on 05-22-2023 Cholesterol in VLDL [Mass/Vol] 44 mg/dL [facility] Creatinine [Mass/volume] in Serum or PlasmaOrdered By: Sammie Gonzalez on 05-22-2023 Creatinine [Mass/Vol] 0.89 mg/dL 0.60-1.20 [facility] Eosinophils Auto (Bld) [#/Vo l]Ordered By: Sammie Gonzalez on 05-22-2023 Eosinophils (Bld) [#/Vol] 0.1 10*3/uL 0.0-0.45 [facility] Eosinophils/100 WBC Auto (Bl d)Ordered By: Sammie Gonzalez on 05-22-2023 Eosinophils/100 WBC (Bld) 1.3 % . [facility] Erythrocyte distribution wid th Auto (RBC) [Ratio]Ordered By: Sammie Gonzalez on 05-22-2023 Erythrocyte distribution width (RBC) [Ratio] 20.4 % 11.9-15.3 [facility] Ferritin [Mass/volume] in Se rum or PlasmaOrdered By: Sammie Gonzalez on 05-22-2023 Ferritin [Mass/Vol] 147.2 ng/mL 11.0-306.8 [facility] Globulin Calc (S) [Mass/Vol] Ordered By: Sammie Gonzalez on 05-22-2023 Globulin (S) [Mass/Vol] 1.8 g/dL [facility] Glucose [Mass/volume] in Ser um or PlasmaOrdered By: Sammie Gonzalez on 05-22-2023 Glucose [Mass/Vol] 88 mg/dL 70-100 [facility] Comment on above: ADA recommended refe rence [...] glycated hemoglobin (Bld) [Mass/Vol] 105 mg/dL [facility] Hematocrit Auto (Bld) [Volum e fraction]Ordered By: Sammie Gonzalez on 05-22-2023 Hematocrit (Bld) [Volume fraction] 37.0 % 34.0-46.4 [facility] Hemoglobin A1c percentageOrd ered By: Sammie Gonzalez on 05-22-2023 HbA1c (Bld) [Mass fraction] 5.3 % 4.3-5.6 [facility] Comment on above: Increased risk for d iabetes: 5.7 - 6.4diabetes: >6.4glycemic control for adults with diabetes: <7.0 Hemoglobin [Mass/volume] in BloodOrdered By: Sammie Gonzalez on 05-22-2023 Hemoglobin (Bld) [Mass/Vol] 11.9 g/dL 11.8-15.4 [facility] Iron [Mass/volume] in Serum or PlasmaOrdered By: Sammie Gonzalez on 05-22-2023 Iron [Mass/Vol] 57 ug/dL 50-212 [facility] Leukocytes [#/volume] correc jana for nucleated erythrocytes in Blood by Automated counOrdered By: Sammie Gonzalez on 05-22-2023 WBC corrected for nucl RBC Auto (Bld) [#/Vol] 9.6 10*3/uL 3.8-11.6 [facility] Lymphocytes Auto (Bld) [#/Vo l]Ordered By: Sammie Gonzalez on 05-22-2023 Lymphocytes (Bld) [#/Vol] 2.2 10*3/uL 1.00-4.8 [facility] Lymphocytes/100 WBC Auto (Bl d)Ordered By: Sammie Gonzalez on 05-22-2023 Lymphocytes/100 WBC (Bld) 22.5 % . [facility] MCH Auto (RBC) [Entitic mass ]Ordered By: Sammie Gonzalez on 05-22-2023 MCH (RBC) [Entitic mass] 27.7 pg 24.7-34.3 [facility] MCHC Auto (RBC) [Mass/Vol]Or dered By: Sammie Gonzalez on 05-22-2023 MCHC (RBC) [Mass/Vol] 32.2 g/dL 32.0-35.0 [facility] MCV Auto (RBC) [Entitic vol] Ordered By: Sammie Gonzalez on 05-22-2023 MCV (RBC) [Entitic vol] 85.8 fL 80-100 [facility] Monocytes Auto (Bld) [#/Vol] Ordered By: Sammie Gonzalez on 05-22-2023 Monocytes (Bld) [#/Vol] 1.0 10*3/uL 0.0-0.8 [facility] Monocytes/100 WBC Auto (Bld) Ordered By: Sammie Gonzalez on 05-22-2023 Monocytes/100 WBC (Bld) 9.9 % . [facility] Neutrophils Auto (Bld) [#/Vo l]Ordered By: Sammie Gonzalez on 05-22-2023 Neutrophils (Bld) [#/Vol] 6.3 10*3/uL 1.8-7.7 [facility] Neutrophils/100 WBC Auto (Bl d)Ordered By: Sammie Gonzalez on 05-22-2023 Neutrophils/100 WBC (Bld) 65.4 % . [facility] No Panel InformationOrdered By: Sammie Gonzalez on 05-22-2023 Estimated GFR (CKD-EPI) > 60.0 mL/Min [facility] Creatinine Clearance (Chem N/A [facility] Nucleated erythrocytes [Pres ence] in Blood by Automated countOrdered By: Sammie Gonzalez on 05-22-2023 Nucleated RBC Auto Ql (Bld) 0.1 /100{WBC} 0-0.5 [facility] Platelet mean volume Auto (B ld) [Entitic vol]Ordered By: Sammie Gonzalez on 05-22-2023 Platelet mean volume (Bld) [Entitic vol] 9.0 fL 6.3-10.7 [facility] Platelets Auto (Bld) [#/Vol] Ordered By: Sammie Gonzalez on 05-22-2023 Platelets (Bld) [#/Vol] 339 10*3/uL 150-450 [facility] Potassium [Moles/volume] in Serum or PlasmaOrdered By: Sammie Gonzalez on 05-22-2023 Potassium [Moles/Vol] 3.9 mmol/L 3.5-5.1 [facility] Protein [Mass/volume] in Ser um or PlasmaOrdered By: Sammie Gonzalez on 05-22-2023 Protein [Mass/Vol] 5.9 g/dL 6.4-8.9 [facility] RBC Auto (Bld) [#/Vol]Ordere d By: Sammie Gonzalez on 05-22-2023 RBC (Bld) [#/Vol] 4.31 10*6/uL 3.60-5.00 [facility] Serum or plasma albumin/glob ulin mass ratioOrdered By: Sammie Gonzalez on 05-22-2023 Albumin/Globulin [Mass ratio] 2.3 {ratio} [facility] Serum or plasma anion gap de terminationOrdered By: Sammie Gonzalez on 05-22-2023 Anion gap [Moles/Vol] 10.5 mmol/L 6.0-15.0 [facility] Serum or plasma high density lipoprotein (HDL) cholesterol measurementOrdered By: Sammie Gonzalez on 05-22-2023 Cholesterol in HDL [Mass/Vol] 79 mg/dL 23-92 [facility] Comment on above: HDL CHOL ATP-III CLA SSIFICATION Cardiovascular RiskHDL > or equal to 60 mg/dL LOWHDL < 40 mg/dL HIGH Serum or plasma total choles terol/high density lipoprotein (HDL) cholesterol mass ratOrdered By: Sammie Gonzalez on 05-22-2023 Cholesterol.total/Tali sterol in HDL [Mass ratio] 2.3 {ratio} <5.0 [facility] Sodium [Moles/volume] in Ser um or PlasmaOrdered By: Sammie Gonzalez on 05-22-2023 Sodium [Moles/Vol] 138 mmol/L 136-145 [facility] Thyrotropin [Units/volume] i n Serum or PlasmaOrdered By: Sammie Gonzalez on 05-22-2023 TSH Qn 3.27 m[IU]/L 0.45-5.33 [facility] Thyroxine (T4) free [Mass/vo lume] in Serum or PlasmaOrdered By: Sammie Gonzalez on 05-22-2023 Free T4 [Mass/Vol] 0.91 ng/dL 0.61-1.12 [facility] Triglyceride [Mass/volume] i n Serum or PlasmaOrdered By: Sammie Gonzalez on 05-22-2023 Triglyceride [Mass/Vol] 223 mg/dL 0-149 [facility] Comment on above: TRIG ATP III CLASSIF ICATIONTRIG less than 150 mg/dL NormalTRIG 150-199 mg/dL Borderline highTRIG 200-500 mg/dL High TRIG greater than 500 mg/dL Very highStandard traceable to the Center for Disease Conrtrol and Prevention (CDC) test method. Urea nitrogen [Mass/volume] in Serum or PlasmaOrdered By: Sammie Gonzalez on 05-22-2023 Urea nitrogen [Mass/Vol] 10 mg/dL 7-25 [facility] WBC Auto (Bld) [#/Vol]Ordere d By: Sammie Gonzalez on 05-22-2023 WBC (Bld) [#/Vol] 9.6 10*3/uL 3.8-11.6 [facility] Basophils Auto (Bld) [#/Vol] Ordered By: Sammie Gonzalez on 04-15-2023 Basophils (Bld) [#/Vol] 0.1 10*3/uL 0.0-0.2 [facility] Basophils/100 WBC Auto (Bld) Ordered By: Sammie Gonzalez on 04-15-2023 Basophils/100 WBC (Bld) 0.8 % . [facility] Eosinophils Auto (Bld) [#/Vo l]Ordered By: Sammie Gonzalez on 04-15-2023 Eosinophils (Bld) [#/Vol] 0.1 10*3/uL 0.0-0.45 [facility] Eosinophils/100 WBC Auto (Bl d)Ordered By: Sammie Gonzalez on 04-15-2023 Eosinophils/100 WBC (Bld) 1.3 % . [facility] Erythrocyte distribution wid th Auto (RBC) [Ratio]Ordered By: Sammie Gonzalez on 04-15-2023 Erythrocyte distribution width (RBC) [Ratio] 15.8 % 11.9-15.3 [facility] Ferritin [Mass/volume] in Se rum or PlasmaOrdered By: Sammie Gonzalez on 04-15-2023 Ferritin [Mass/Vol] 5.1 ng/mL 11.0-306.8 [facility] Hematocrit Auto (Bld) [Volum e fraction]Ordered By: Sammie Gonzalez on 04-15-2023 Hematocrit (Bld) [Volume fraction] 35.0 % 34.0-46.4 [facility] Hemoglobin [Mass/volume] in BloodOrdered By: Sammie Gonzalez on 04-15-2023 Hemoglobin (Bld) [Mass/Vol] 11.2 g/dL 11.8-15.4 [facility] Iron [Mass/volume] in Serum or PlasmaOrdered By: Sammie Gonzalez on 04-15-2023 Iron [Mass/Vol] 18 ug/dL 50-212 [facility] Leukocytes [#/volume] correc jana for nucleated erythrocytes in Blood by Automated counOrdered By: Sammie Gonzalez on 04-15-2023 WBC corrected for nucl RBC Auto (Bld) [#/Vol] 9.6 10*3/uL 3.8-11.6 [facility] Lymphocytes Auto (Bld) [#/Vo l]Ordered By: Sammie Gonzalez on 04-15-2023 Lymphocytes (Bld) [#/Vol] 2.2 10*3/uL 1.00-4.8 [facility] Lymphocytes/100 WBC Auto (Bl d)Ordered By: Sammie Gonzalez on 04-15-2023 Lymphocytes/100 WBC (Bld) 23.3 % . [facility] MCH Auto (RBC) [Entitic mass ]Ordered By: Sammie Gonzalez on 04-15-2023 MCH (RBC) [Entitic mass] 26.0 pg 24.7-34.3 [facility] MCHC Auto (RBC) [Mass/Vol]Or dered By: Sammie Gonzalez on 04-15-2023 MCHC (RBC) [Mass/Vol] 32.0 g/dL 32.0-35.0 [facility] MCV Auto (RBC) [Entitic vol] Ordered By: Sammie Gonzalez on 04-15-2023 MCV (RBC) [Entitic vol] 81.2 fL 80-100 [facility] Monocytes Auto (Bld) [#/Vol] Ordered By: Sammie Gonzalez on 04-15-2023 Monocytes (Bld) [#/Vol] 0.7 10*3/uL 0.0-0.8 [facility] Monocytes/100 WBC Auto (Bld) Ordered By: Sammie Gonzalez on 04-15-2023 Monocytes/100 WBC (Bld) 7.7 % . [facility] Neutrophils Auto (Bld) [#/Vo l]Ordered By: Sammie Gonzalez on 04-15-2023 Neutrophils (Bld) [#/Vol] 6.4 10*3/uL 1.8-7.7 [facility] Neutrophils/100 WBC Auto (Bl d)Ordered By: Sammie Gonzalez on 04-15-2023 Neutrophils/100 WBC (Bld) 66.9 % . [facility] Nucleated erythrocytes [Pres ence] in Blood by Automated countOrdered By: Sammie Gonzalez on 04-15-2023 Nucleated RBC Auto Ql (Bld) 0.4 /100{WBC} 0-0.5 [facility] Platelet mean volume Auto (B ld) [Entitic vol]Ordered By: Sammie Gonzalez on 04-15-2023 Platelet mean volume (Bld) [Entitic vol] 9.1 fL 6.3-10.7 [facility] Platelets Auto (Bld) [#/Vol] Ordered By: Sammie Gonzalez on 04-15-2023 Platelets (Bld) [#/Vol] 427 10*3/uL 150-450 [facility] RBC Auto (Bld) [#/Vol]Ordere d By: Sammie Gonzalez on 04-15-2023 RBC (Bld) [#/Vol] 4.31 10*6/uL 3.60-5.00 [facility] WBC Auto (Bld) [#/Vol]Ordere d By: Sammie Gonzalez on 04-15-2023 WBC (Bld) [#/Vol] 9.6 10*3/uL 3.8-11.6 [facility] BNPon 10-11-2022 Natriuretic peptide B (Bld) [Mass/Vol] 173.0 pg/mL Normal <=450.0 [facility] Comment on above: Performed By: #### L ACT #### [facility] [address] [place] [address] Dr. Ko Durbin CBC W MANUAL DIFFon 10-11-19 23 ATYPICAL LYMPH # 0.18 103/ul Normal [facility] Comment on above: Performed By: #### C MARSHA #### [facility] [address] [place] [address] Dr. Ko Durbin ATYPICAL LYMPH % 2 % Normal [facility] Comment on above: Performed By: #### C MARSHA #### [facility] [address] [place] [address] Dr. Ko Durbin BAND # 0.0 103/ul Normal 0.0-0.3 [facility] Comment on above: Performed By: #### C MARSHA #### [facility] [address] [place] [address] Dr. Ko Durbin BAND % 0 % Normal 0-5 [facility] Comment on above: Performed By: #### C MARSHA #### [facility] [address] [place] [address] Dr. Ko Durbin BASOM # 0.00 103/ul Normal 0.00-0.10 [facility] Comment on above: Performed By: #### C MARSHA #### [facility] [address] [place] [address] Dr. Ko Durbin BASOM % 0.0 % Critically low 0.2-2.0 [facility] Comment on above: Performed By: #### C MARSHA #### [facility] [address] [place] [address] Dr. Ko Durbin BLAST # Normal [facility] Comment on above: Performed By: #### C MARSHA #### [facility] [address] [place] [address] Dr. Ko Durbin BLAST % Normal [facility] Comment on above: Performed By: #### C MARSHA #### [facility] [address] [place] [address] Dr. Ko Durbin CORRECTED WBC Normal 4.0-11.0 [facility] Comment on above: Performed By: #### C MARSHA #### [facility] [address] [place] [address] Dr. Ko Durbin EOS # 0.00 103/ul Normal 0.00-0.70 [facility] Comment on above: Performed By: #### C MARSHA #### [facility] [address] [address] [address] Ko Durbin EOS% 0.0 % Critically low 0.9-7.0 [facility] Comment on above: Performed By: #### C MARSHA #### [facility] [address] [address] [address] Ko Durbin HCT 32.8 % Critically low 36.0-48.0 [facility] Comment on above: Performed By: #### C MARSHA #### [facility] [address] [place] [address] Dr. Ko Durbin HGB 11.1 g/dl Critically low 12.0-16.0 [facility] Comment on above: Performed By: #### C MARSHA #### [facility] [address] [place] [address] Dr. Ko Durbin LYMPHM # 0.18 103/ul Critically low 1.20-3.80 [facility] Comment on above: Performed By: #### C MARSHA #### [facility] [address] [place] [address] Dr. Ko Durbin LYMPHM% 2.0 % Critically low 20.5-60.0 [facility] Comment on above: Performed By: #### Ryan LARSON #### [facility] [address] [place] [address] Dr. Ko Durbin MCH 27.7 pg Normal 26.7-34.0 [facility] Comment on above: Performed By: #### C MARSHA #### [facility] [address] [address] [address] Ko Durbin MCHC 33.8 g/dl Normal 29.9-35.2 [facility] Comment on above: Performed By: #### C MARSHA #### [facility] [address] [address] [address] Ko Durbin MCV 81.8 fL Normal 81.0-99.0 [facility] Comment on above: Performed By: #### C MARSHA #### [facility] [address] [address] [address] Ko Durbin METAMYELOCYTE # Normal [facility] Comment on above: Performed By: #### C MARSHA #### [facility] [address] [address] [address] Ko Durbin METAMYELOCYTE % Normal [facility] Comment on above: Performed By: #### C MARSHA #### [facility] [address] [address] [address] Ko Durbin MONOM# 0.09 103/ul Critically low 0.30-0.80 [facility] Comment on above: Performed By: #### C MARSHA #### [facility] [address] [place] [address] Dr. Ko Durbin MONOM% 1.0 % Critically low 1.7-12.0 [facility] Comment on above: Performed By: #### C MARSHA #### [facility] [address] [place] [address] Dr. Ko Durbin MPV 9.8 fL Normal 9.5-13.5 [facility] Comment on above: Performed By: #### C MARSHA #### [facility] [address] [place] [address] Dr. Ko Durbin MYELOCYTE # Normal [facility] Comment on above: Performed By: #### C MARSHA #### [facility] [address] [address] [address] Ko Durbin MYELOCYTE % Normal [facility] Comment on above: Performed By: #### C MARSHA #### [facility] [address] [address] [address] Ko Durbin NRBC Normal [facility] Comment on above: Performed By: #### C MARSHA #### [facility] [address] [address] [address] Ko Durbin PLT 375 103/ul Normal 150-450 [facility] Comment on above: Performed By: #### C MARSHA #### [facility] [address] [address] [address] Ko Durbin RBC 4.01 106/ul Critically low 4.20-5.40 [facility] Comment on above: Performed By: #### C MARSHA #### [facility] [address] [address] [address] Ko Durbin RDW 13.5 % Normal 11.0-15.0 [facility] Comment on above: Performed By: #### C MARSHA #### [facility] [address] [address] [address] Ko Durbin SEG # 8.55 103/ul Critically high 1.40-6.50 [facility] Comment on above: Performed By: #### C MARSHA #### [facility] [address] [place] [address] Dr. Ko Durbin SEG % 95.0 % Critically high 43.0-75.0 [facility] Comment on above: Performed By: #### C MARSHA #### [facility] [address] [address] [address] Ko Durbin WBC 9.0 103/ul Normal 4.0-11.0 [facility] Comment on above: Performed By: #### C MARSHA #### [facility] [address] [place] [address] Dr. Ko Durbin POINT OF CARE GLUCOSEon 09-15 Glucose [Mass/Vol] 98 mg/dL Normal 74-106 [facility] Comment on above: Performed By: #### L ACT #### [facility] [address] [address] [address] Ko Durbin Glucose [Mass/Vol] 158 mg/dL Critically high 74-106 [facility] Comment on above: Performed By: #### P OCGLUC #### [facility] [address] [address] [address] Ko Durbin PROF 14(COMP METB)on 023 Albumin [Mass/Vol] 3.7 g/dL Normal 3.4-5.0 [facility] Comment on above: Performed By: #### L ACT #### [facility] [address] [address] [address] Ko Durbin Albumin/Globulin [Mass ratio] 1.2 {ratio} Normal [facility] Comment on above: Performed By: #### L ACT #### [facility] [address] [address] [address] Ko Durbin ALP [Catalytic activity/Vol] 42 U/L Critically low 46-116 [facility] Comment on above: Performed By: #### L ACT #### [facility] [address] [place] [address] Dr. Ko Durbin ALT [Catalytic activity/Vol] 30 U/L Normal 14-59 [facility] Comment on above: Performed By: #### L ACT #### [facility] [address] [place] [address] Dr. Ko Durbin Anion gap [Moles/Vol] 17.1 mmol/L Normal [facility] Comment on above: Performed By: #### L ACT #### [facility] [address] [place] [address] Dr. Ko Durbin AST [Catalytic activity/Vol] 15 U/L Normal 15-37 [facility] Comment on above: Performed By: #### L ACT #### [facility] [address] [place] [address] Dr. Ko Durbin Bilirubin [Mass/Vol] 0.2 mg/dL Normal 0.2-1.0 [facility] Comment on above: Performed By: #### L ACT #### [facility] [address] [place] [address] Dr. Ko Durbin Calcium [Mass/Vol] 9.6 mg/dL Normal 8.5-10.1 [facility] Comment on above: Performed By: #### L ACT #### [facility] [address] [place] [address] Dr. Ko Durbin Chloride [Moles/Vol] 100 mmol/L Normal 98-107 [facility] Comment on above: Performed By: #### L ACT #### [facility] [address] [place] [address] Dr. Ko Durbin CO2 [Moles/Vol] 22.3 mmol/L Normal 21.0-32.0 [facility] Comment on above: Performed By: #### L ACT #### [facility] [address] [address] [address] Ko Durbin Creatinine [Mass/Vol] 1.10 mg/dL Critically high 0.55-1.02 [facility] Comment on above: Performed By: #### L ACT #### [facility] [address] [address] [address] Ko Durbin EGFR-AF MEXICAN >60 Normal >=60 [facility] Comment on above: Performed By: #### L ACT #### [facility] [address] [address] [address] Ko Durbin EGFR-NON AF MEXICAN 54 mL/min/1.73m2 Critically low >=60 [facility] Comment on above: Performed By: #### L ACT #### [facility] [address] [address] [address] Ko Durbin Globulin (S) [Mass/Vol] 3.1 g/dL Normal [facility] Comment on above: Performed By: #### L ACT #### [facility] [address] [place] [address] Dr. Ko Durbin Glucose [Mass/Vol] 180 mg/dL Critically high 74-106 [facility] Comment on above: Performed By: #### L ACT #### [facility] [address] [address] [address] Ko Durbin Potassium [Moles/Vol] 3.4 mmol/L Critically low 3.5-5.1 [facility] Comment on above: Performed By: #### L ACT #### [facility] [address] [address] [address] Ko Durbin Protein [Mass/Vol] 6.8 g/dL Normal 6.4-8.2 [facility] Comment on above: Performed By: #### L ACT #### [facility] [address] [address] [address] Ko Durbin Sodium [Moles/Vol] 136 mmol/L Normal 136-145 [facility] Comment on above: Performed By: #### L ACT #### [facility] [address] [place] [address] Dr. Ko Durbin Urea nitrogen [Mass/Vol] 19.0 mg/dL Critically high 7.0-18.0 [facility] Comment on above: Performed By: #### L ACT #### [facility] [address] [place] [address] Dr. Ko Durbin Urea nitrogen/Creatinine [Mass ratio] 17.3 mg/mg Normal [facility] Comment on above: Performed By: #### L ACT #### [facility] [address] [place] [address] Dr. Ko Durbin BNPon 10-10-2022 Natriuretic peptide B (Bld) [Mass/Vol] 291.0 pg/mL Normal <=450.0 [facility] Comment on above: Performed By: #### C MP, CMADM, BNP #### [facility] [address] [place] [address] Dr. Ko Durbin CARDIAC PERRY ADMITon 023 CK [Catalytic activity/Vol] 286 U/L Critically high 26-192 [facility] Comment on above: Performed By: #### C MP, CMADM, BNP #### [facility] [address] [place] [address] Dr. Ko Durbin CK.MB [Mass/Vol] 4.51 ng/mL Critically high <=3.60 [facility] Comment on above: Performed By: #### C MP, CMADM, BNP #### [facility] [address] [place] [address] Dr. Ko Durbin HSTROP 5.0 pg/mL Normal 4.0-51.3 [facility] Comment on above: Result Comment: CUT- OFF POINTS HAVE BEEN ESTABLISHED BASED ON THE FOURTH UNIVERSAL DEFINITIONS OF MYOCARDIAL INFARCTION. THE UPPER REFERENCE LIMIT (URL) OF TROPONIN, DEFINED THE 99TH PERCENTILE OF cTnI DISTRIBUTION IN A REFERENCE POPULATION, HAS BEEN CONFIRMED THE DECISION THRESHOLD FOR [place] DIAGNOSIS. Performed By: #### C MP, CMADM, BNP #### [facility] [address] [address] [address] Ko Durbin JAROD 184 ng/mL Critically high 9-82 [facility] Comment on above: Performed By: #### C MP, CMADM, BNP #### [facility] [address] [place] [address] Dr. Ko Durbin CBC AUTO DIFFon 10-10-2022 BASO # 0.0 103/ul Normal 0.0-0.1 [facility] Comment on above: Performed By: #### C BC #### [facility] [address] [place] [address] Dr. Ko Durbin Basophils/100 WBC (Bld) 0.2 % Normal 0.2-2.0 [facility] Comment on above: Performed By: #### C BC #### [facility] [address] [place] [address] Dr. Ko Durbin EO # 0.0 103/ul Normal 0.0-0.7 [facility] Comment on above: Performed By: #### C BC #### [facility] [address] [place] [address] Dr. Ko Durbin Eosinophils/100 WBC (Bld) 0.0 % Critically low 0.9-7.0 [facility] Comment on above: Performed By: #### C BC #### [facility] [address] [place] [address] Dr. Ko Durbin Erythrocyte distribution width (RBC) [Ratio] 13.7 % Normal 11.0-15.0 [facility] Comment on above: Performed By: #### C BC #### [facility] [address] [place] [address] Dr. Ko Durbin Hematocrit (Bld) [Volume fraction] 31.8 % Critically low 36.0-48.0 [facility] Comment on above: Performed By: #### C BC #### [facility] [address] [place] [address] Dr. Ko Durbin Hemoglobin (Bld) [Mass/Vol] 11.1 g/dL Critically low 12.0-16.0 [facility] Comment on above: Performed By: #### C BC #### [facility] [address] [place] [address] Dr. Ko Durbin IG # 0.11 10e3/ul Critically high 0.00-0.03 [facility] Comment on above: Performed By: #### C BC #### [facility] [address] [place] [address] Dr. Ko Durbin IG % 1.0 % Critically high 0.0-0.5 [facility] Comment on above: Performed By: #### C BC #### [facility] [address] [place] [address] Dr. oK Durbin LYMPH # 1.8 103/ul Normal 1.2-3.8 [facility] Comment on above: Performed By: #### C BC #### [facility] [address] [place] [address] Dr. Ko Durbin Lymphocytes/100 WBC (Bld) 16.2 % Critically low 20.5-60.0 [facility] Comment on above: Performed By: #### C BC #### [facility] [address] [place] [address] Dr. Ko Durbin MANUAL DIFF REQ NO Normal [facility] Comment on above: Performed By: #### C BC #### [facility] [address] [place] [address] Dr. Ko Durbin MCH (RBC) [Entitic mass] 28.2 pg Normal 26.7-34.0 [facility] Comment on above: Performed By: #### C BC #### [facility] [address] [place] [address] Dr. Ko Durbin MCHC (RBC) [Mass/Vol] 34.9 g/dL Normal 29.9-35.2 [facility] Comment on above: Performed By: #### C BC #### [facility] [address] [place] [address] Dr. Ko Durbin MCV (RBC) [Entitic vol] 80.7 fL Critically low 81.0-99. 0 [facility] Comment on above: Performed By: #### C BC #### [facility] [address] [place] [address] Dr. Ko Durbin MONO # 0.7 103/ul Normal 0.3-0.8 [facility] Comment on above: Performed By: #### C BC #### [facility] [address] [place] [address] Dr. Ko Durbin Monocytes/100 WBC (Bld) 6.3 % Normal 1.7-12.0 [facility] Comment on above: Performed By: #### C BC #### [facility] [address] [place] [address] Dr. Ko Durbin NEUT # 8.4 103/ul Critically high 1.4-6.5 [facility] Comment on above: Performed By: #### C BC #### [facility] [address] [place] [address] Dr. Ko Durbin Neutrophils/100 WBC (Bld) 76.3 % Critically high 43.0-75.0 [facility] Comment on above: Performed By: #### C BC #### [facility] [address] [place] [address] Dr. Ko Durbin Platelet mean volume (Bld) [Entitic vol] 9.5 fL Normal 9.5-13.5 [facility] Comment on above: Performed By: #### C BC #### [facility] [address] [place] [address] Dr. Ko Durbin PLT 384 103/ul Normal 150-450 [facility] Comment on above: Performed By: #### C BC #### [facility] [address] [place] [address] Dr. Ko Durbin RBC 3.94 106/ul Critically low 4.20-5.40 [facility] Comment on above: Performed By: #### C BC #### [facility] [address] [place] [address] Dr. Ko Durbin WBC 11.0 103/ul Normal 4.0-11.0 [facility] Comment on above: Performed By: #### C BC #### [facility] [address] [place] [address] Dr. Ko Durbin CULTURE URINEon 10-10-2022 CULTURE URINE Culture Observations : NO GROWTH. Normal [facility] Comment on above: Performed By: #### U RCX #### [facility] [address] [place] [address] Dr. Ko Durbin [facility]15 SARS-CoV-2 (COVID-19) RNA RADHA+probe Ql (Unsp spec) Not detected Normal NOT DETECTED [facility] Comment on above: Result Comment: When diagnostic [...] for this test is supported by the Supervisor [employer] Covering of Health and Human Service's declaration that [...] used). Performed By: #### C VDTBH #### [facility] [address] [place] [address] Dr. Ko Durbin LACTATE/LACTIC ACIDon 2022 Lactate [Moles/Vol] 1.7 mmol/L Normal 0.4-1.9 [facility] Comment on above: Performed By: #### L ACT #### [facility] [address] [place] [address] Dr. Ko Durbin POINT OF CARE GLUCOSEon 09-15 Glucose [Mass/Vol] 139 mg/dL Critically high 74-106 [facility] Comment on above: Performed By: #### P OCGLUC #### [facility] [address] [place] [address] Dr. Ko Durbin Glucose [Mass/Vol] 99 mg/dL Normal 74-106 [facility] Comment on above: Performed By: #### L ACT #### [facility] [address] [place] [address] Dr. Ko Durbin PROF 14(COMP METB)on 023 Albumin [Mass/Vol] 3.9 g/dL Normal 3.4-5.0 [facility] Comment on above: Performed By: #### C MP, CMADM, BNP #### [facility] [address] [place] [address] Dr. Ko Durbin Albumin/Globulin [Mass ratio] 1.3 {ratio} Normal [facility] Comment on above: Performed By: #### C MP, CMADM, BNP #### [facility] [address] [place] [address] Dr. Ko Durbin ALP [Catalytic activity/Vol] 43 U/L Critically low 46-116 [facility] Comment on above: Performed By: #### C MP, CMADM, BNP #### [facility] [address] [place] [address] Dr. Ko Durbin ALT [Catalytic activity/Vol] 34 U/L Normal 14-59 [facility] Comment on above: Performed By: #### C MP, CMADM, BNP #### [facility] [address] [place] [address] Dr. Ko Durbin Anion gap [Moles/Vol] 16.2 mmol/L Normal [facility] Comment on above: Performed By: #### C MP, CMADM, BNP #### [facility] [address] [place] [address] Dr. Ko Durbin AST [Catalytic activity/Vol] 18 U/L Normal 15-37 [facility] Comment on above: Performed By: #### C MP, CMADM, BNP #### [facility] [address] [place] [address] Dr. Ko Durbin Bilirubin [Mass/Vol] 0.2 mg/dL Normal 0.2-1.0 [facility] Comment on above: Performed By: #### C MP, CMADM, BNP #### [facility] [address] [address] [address] Ko Durbin Calcium [Mass/Vol] 9.4 mg/dL Normal 8.5-10.1 [facility] Comment on above: Performed By: #### C MP, CMADM, BNP #### [facility] [address] [address] [address] Ko Durbin Chloride [Moles/Vol] 99 mmol/L Normal 98-107 [facility] Comment on above: Performed By: #### C MP, CMADM, BNP #### [facility] [address] [address] [address] Ko Durbin CO2 [Moles/Vol] 25.7 mmol/L Normal 21.0-32.0 [facility] Comment on above: Performed By: #### C MP, CMADM, BNP #### [facility] [address] [address] [address] Ko Durbin Creatinine [Mass/Vol] 1.10 mg/dL Critically high 0.55-1.02 [facility] Comment on above: Performed By: #### C MP, CMADM, BNP #### [facility] [address] [address] [address] Ko Durbin EGFR-AF MEXICAN >60 Normal >=60 [facility] Comment on above: Performed By: #### C MP, CMADM, BNP #### [facility] [address] [address] [address] Ko Durbin EGFR-NON AF MEXICAN 54 mL/min/1.73m2 Critically low >=60 [facility] Comment on above: Performed By: #### C MP, CMADM, BNP #### [facility] [address] [address] [address] Ko Durbin Globulin (S) [Mass/Vol] 2.9 g/dL Normal [facility] Comment on above: Performed By: #### C MP, CMADM, BNP #### [facility] [address] [address] [address] Ko Durbin Glucose [Mass/Vol] 97 mg/dL Normal 74-106 [facility] Comment on above: Performed By: #### C MP, CMADM, BNP #### [facility] [address] [address] [address] Ko Durbin Potassium [Moles/Vol] 3.9 mmol/L Normal 3.5-5.1 [facility] Comment on above: Performed By: #### C MP, CMADM, BNP #### [facility] [address] [place] [address] Dr. Ko Durbin Protein [Mass/Vol] 6.8 g/dL Normal 6.4-8.2 [facility] Comment on above: Performed By: #### C MP, CMADM, BNP #### [facility] [address] [place] [address] Dr. Ko Durbin Sodium [Moles/Vol] 137 mmol/L Normal 136-145 [facility] Comment on above: Performed By: #### C MP, CMADM, BNP #### [facility] [address] [place] [address] Dr. Ko Durbin Urea nitrogen [Mass/Vol] 16.0 mg/dL Normal 7.0-18.0 [facility] Comment on above: Performed By: #### C MP, CMADM, BNP #### [facility] [address] [place] [address] Dr. Ko Durbin Urea nitrogen/Creatinine [Mass ratio] 14.5 mg/mg Normal [facility] Comment on above: Performed By: #### C MP, CMADM, BNP #### [facility] [address] [place] [address] Dr. Ko Durbin UA RANDOM W/MICROSCOPICon BACTERIA NONE SEEN Normal NONE SEEN [facility] Comment on above: Performed By: #### L ACT #### [facility] [address] [place] [address] Dr. Ko Durbin Bilirubin Ql (U) Negative Normal NEGATIVE [facility] Comment on above: Performed By: #### L ACT #### [facility] [address] [place] [address] Dr. Ko Durbin CAST NONE SEEN Normal NONE SEEN [facility] Comment on above: Performed By: #### L ACT #### [facility] [address] [place] [address] Dr. Ko Durbin Clarity (U) CLEAR Normal CLEAR [facility] Comment on above: Performed By: #### L ACT #### [facility] [address] [place] [address] Dr. Ko Durbin Color (U) LT. YELLOW Normal YELLOW [facility] Comment on above: Performed By: #### L ACT #### [facility] [address] [place] [address] Dr. Ko Durbin Crystals LM Nom (Urine sed) NONE SEEN Normal NONE SEEN [facility] Comment on above: Performed By: #### L ACT #### [facility] [address] [place] [address] Dr. Ko Durbin Epithelial cells LM Ql (Urine sed) NONE SEEN Normal NONE SEEN /RARE [facility] Comment on above: Performed By: #### L ACT #### [facility] [address] [place] [address] Dr. Ko Durbin Glucose Ql (U) 500 mg/dl Abnormal NEGATIVE [facility] Comment on above: Performed By: #### L ACT #### [facility] [address] [place] [address] Dr. Ko Durbin Hemoglobin Ql (U) TRACE-INTACT Abnormal NEGATIVE [facility] Comment on above: Performed By: #### L ACT #### [facility] [address] [place] [address] Dr. Ko Durbin Ketones Ql (U) Negative Normal NEGATIVE [facility] Comment on above: Performed By: #### L ACT #### [facility] [address] [place] [address] Dr. Ko Durbin LEUKOCYTES Negative Normal NEGATIVE [facility] Comment on above: Performed By: #### L ACT #### [facility] [address] [place] [address] Dr. Ko Durbin MUCOUS NONE SEEN Normal NONE SEEN [facility] Comment on above: Performed By: #### L ACT #### [facility] [address] [place] [address] Dr. Ko Durbin Nitrite Ql (U) Negative Normal NEGATIVE [facility] Comment on above: Performed By: #### L ACT #### [facility] [address] [place] [address] Dr. Ko Durbin pH (U) 5.5 [pH] Normal 5-9 [facility] Comment on above: Performed By: #### L ACT #### [facility] [address] [place] [address] Dr. Ko Durbin RBC 0-2 Normal 0-2 [facility] Comment on above: Performed By: #### L ACT #### [facility] [address] [place] [address] Dr. Ko Durbin SPEC GRAVITY <=1.005 Abnormal 1.005-<=1.0 25 [facility] Comment on above: Performed By: #### L ACT #### [facility] [address] [place] [address] Dr. Ko Durbin UA PROTEIN Negative Normal NEGATIVE/ TRACE [facility] Comment on above: Performed By: #### L ACT #### [facility] [address] [place] [address] Dr. Ko Durbin Urobilinogen Qn (U) 0.2 {Rich'U}/dL Normal 0.2 - 1. 0 [facility] Comment on above: Performed By: #### L ACT #### [facility] [address] [place] [address] Dr. Ko Durbin WBC NONE SEEN Normal NONE SEEN [facility] Comment on above: Performed By: #### L ACT #### [facility] [address] [place] [address] Dr. Ko Durbin XR CHEST 2 Von [...] by: LIAT MARISCAL Date: 2022-10-10 17:23 Normal [facility] XR wrist RT min 3V*on 2022 XR wrist RT min 3V* [facility] [employer] Other XR wrist RT min 3V* [facility] [employer] Other XR wrist RT min 3V* [address] [place] [address] [employer] Other XR wrist RT min 3V* [place] [address] [employer] Other XR wrist RT min 3V* XRay Report Nort [employer] Other XR wrist RT min 3V* Signed [employer] Other XR wrist RT min 3V* Patient: Kourtney Novak MR#: [id number] [employer] Other XR wrist RT min 3V* [id number] [employer] Other XR wrist RT min 3V* : 1975 Acct:[id number] [employer] Other XR wrist RT min 3V* Age/Sex: 46 / F ADM Date: 09/24/22 [employer] Other XR wrist RT min 3V* [place] [facility] [place]: Type : [facility] [employer] Other XR wrist RT min 3V* Attending Dr: Naz Gomes MD [employer] Other XR wrist RT min 3V* Copies to: Elyssa Gomes MD [employer] Other XR wrist RT min 3V* Ordering Provider: Elyssa Gomes MD [employer] Other XR wrist RT min 3V* Date of Service: 09/24/22 [employer] Other XR wrist RT min 3V* XR/XR wrist RT min 3V*: Osteochondrosis of lunate of right wrist [employer] Other XR wrist RT min 3V* RIGHT WRIST - 4 views [employer] Other XR wrist RT min 3V* CLINICAL HISTORY: Follow-up right wrist denervation and radial core decompression [employer] Other XR wrist RT min 3V* COMPARISON: None [employer] Other XR wrist RT min 3V* FINDINGS: [employer] Other XR wrist RT min 3V* No focal soft tissue abnormality. 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 Triquetral fracture is unchanged. Mild degenerative changes without bony erosion. [employer] Other XR wrist RT min 3V* XR/XR wrist RT min 3V* [employer] Other XR wrist RT min 3V* IMPRESSION: Nort [employer] Other XR wrist RT min 3V* NO SIGNIFICANT DURBIN E IN WRIST FINDINGS. [employer] Other XR wrist RT min 3V* Impression dictated by: Rainer Martinez Jr., DEstefanyOEstefany09/24/2022 4:36 PM [employer] Other XR wrist RT min 3V* Dictation Location: [place] [address] [employer] Other XR wrist RT min 3V* Transcribed By: PWS 09/24/22 1636 [employer] Other XR wrist RT min 3V* Dictated By: Rainer Martinez Jr DO 09/24/22 1634 [employer] Other XR wrist RT min 3V* Signed By: [employer] Other XR wrist RT min 3V* 09/24/22 1636 No rt [employer] Other Urine culture routineOrdered By: Sammie Gonzalez on 07-31-2022 Bacteria identified Cx Nom (U) 2 Days [facility] Automated erythrocytes count in urine sediment (number/area)Ordered By: Sammie Gonzalez on 07-29-2022 RBC Auto (Urine sed) [#/Area] 3-4 [HPF] 0-4 [facility] Automated leukocytes count i n urine sediment (number/area)Ordered By: Sammie Gonzalez on 07-29-2022 WBC Auto (Urine sed) [#/Area] None seen [HPF] 0-4 [facility] Bilirubin Test strip Ql (U)O rdered By: Sammie Gonzalez on 07-29-2022 Bilirubin Ql (U) Negative Negative [facility] Color Auto (U)Ordered By: Do erik Gonzalez on 07-29-2022 Color (U) Yellow Yellow [facility] Ketones Auto test strip (U) [Mass/Vol]Ordered By: Sammie Gonzalez on 07-29-2022 Ketones (U) [Mass/Vol] Negative Negative [facility] - UrinalysisOrder ed By: Sammie Gonzalez on 07-29-2022 Hyaline casts LM Ql (Urine sed) None seen [LPF] 0-8 [facility] Nitrite Test strip Ql (U)Ord ered By: Sammie Gonzalez on 07-29-2022 Nitrite Ql (U) Negative Negative [facility] Protein Auto test strip (U) [Mass/Vol]Ordered By: Sammie Gonzalez on 07-29-2022 Protein (U) [Mass/Vol] Negative Negative [facility] Specific gravity Auto test s trip (U) [Rel density]Ordered By: Sammie Gonzalez on 07-29-2022 Specific gravity (U) [Rel density] 1.013 1.001-1.030 [facility] Squamous epithelial cells de tection in urine sediment by light microscopyOrdered By: Sammie Gonzalez on 07-29-2022 Epithelial cells.squamous LM Ql (Urine sed) None seen [HPF] 0-2 [facility] Urine bacteria detection by automated methodOrdered By: Sammie Gonzalez on 07-29-2022 Bacteria Auto Ql (U) None seen None Seen [facility] Urine clarity by refractomet ry automatedOrdered By: Sammie Gonzalez on 07-29-2022 Clarity Refractometry automated (U) Clear Clear [facility] Urine culture routineOrdered By: Sammie Gonzalez on 07-29-2022 Bacteria identified Cx Nom (U) 2 Days [facility] Urine glucose measurement by automated test strip (mass/volume)Ordered By: Sammie Gonzalez on 07-29-2022 Glucose Auto test strip (U) [Mass/Vol] >=1000 mg/dL Normal [facility] Urine hemoglobin detection b y automated test stripOrdered By: Sammie Gonzalez on 07-29-2022 Hemoglobin Auto test strip Ql (U) Trace Negative [facility] Urine leukocyte esterase det ection by automated test stripOrdered By: Sammie Gonzalez on 07-29-2022 Leukocyte esterase Auto test strip Ql (U) Negative Negative [facility] Urobilinogen Auto test strip (U) [Mass/Vol]Ordered By: Sammie Gonzalez on 07-29-2022 Urobilinogen (U) [Mass/Vol] Normal mg/dL Normal [facility] pH Auto test strip (U)Ordere d By: Sammie Gonzalez on 07-29-2022 pH (U) 6.0 [pH] 5.0-9.0 [facility] Albumin [Mass/volume] in Ser um or PlasmaOrdered By: Sammie Gonzalez on 05-01-2022 Albumin [Mass/Vol] 4.0 g/dL 3.2-5.5 [facility] Basophils Auto (Bld) [#/Vol] Ordered By: Sammie Gonzalez on 05-01-2022 Basophils (Bld) [#/Vol] 0.0 10*3/uL 0.0-0.2 [facility] Basophils/100 WBC Auto (Bld) Ordered By: Sammie Gonzalez on 05-01-2022 Basophils/100 WBC (Bld) 0.8 % . [facility] Blood hemoglobin measurement (mass/volume)Ordered By: Sammie Gonzalez on 05-01-2022 Hemoglobin (Bld) [Mass/Vol] 12.4 g/dL 11.8-15.4 [facility] Blood leukocytes automated c ount (number/volume)Ordered By: Sammie Gonzalez on 05-01-2022 WBC (Bld) [#/Vol] 6.0 10*3/uL 4.5-11.0 [facility] Cholesterol [Mass/volume] in Serum or PlasmaOrdered By: Sammie Gonzalez on 05-01-2022 Cholesterol [Mass/Vol] 189 mg/dL 140-200 [facility] Comment on above: Chol less than 200 m g/dl low risk Chol 201-239 mg/dl borderline risk Chol 240 mg/dl and greater high risk Chol less than 200 m g/dl low riskChol 201-239 mg/dl borderline riskChol 240 mg/dl and greater high risk Cholesterol in LDL Calc [Mas s/Vol]Ordered By: Sammie Gonzalez on 05-01-2022 Cholesterol in LDL [Mass/Vol] 92 mg/dL 0-100 [facility] Comment on above: LDL ATP III [...] Cholesterol in VLDL [Mass/Vol] 19 mg/dL [facility] Creatinine and Glomerular fi ltration rate.predicted panel (S/P/Bld)Ordered By: Sammie Gonzalez on 05-01-2022 Creatinine [Mass/Vol] 1.06 mg/dL 0.44-1.03 [facility] Eosinophils Auto (Bld) [#/Vo l]Ordered By: Sammie Gonzalez on 05-01-2022 Eosinophils (Bld) [#/Vol] 0.1 10*3/uL 0.0-0.45 [facility] Eosinophils/100 WBC Auto (Bl d)Ordered By: Sammie Gonzalez on 05-01-2022 Eosinophils/100 WBC (Bld) 1.2 % . [facility] Erythrocyte distribution wid th Auto (RBC) [Ratio]Ordered By: Sammie Gonzalez on 05-01-2022 Erythrocyte distribution width (RBC) [Ratio] 13.7 % 11.9-15.3 [facility] Estimated glomerular filtrat ion rate (GFR) non- AmericanOrdered By: Sammie Gonzalez on 05-01-2022 GFR/1.73 sq M.predicted among non-blacks MDRD (S/P/Bld) [Vol rate/Area] 56 mL/Min [facility] Globulin Calc (S) [Mass/Vol] Ordered By: Sammie Gonzalez on 05-01-2022 Globulin (S) [Mass/Vol] 2.3 g/dL [facility] Glucose mean value [Mass/vol ume] in Blood Estimated from glycated hemoglobinOrdered By: Sammie Gonzalez on 05-01-2022 Average glucose Estimated from glycated hemoglobin (Bld) [Mass/Vol] 117 mg/dL [facility] Hematocrit Auto (Bld) [Volum e fraction]Ordered By: Sammie Gonzalez on 05-01-2022 Hematocrit (Bld) [Volume fraction] 38.4 % 34.0-46.4 [facility] Hemoglobin A1c percentageOrd ered By: Sammie Gonzalez on 05-01-2022 HbA1c (Bld) [Mass fraction] 5.7 % 4.3-5.6 [facility] Comment on above: Increased risk for d iabetes: 5.7 - 6.4 diabetes: >6.4 glycemic control for adults with diabetes: <7.0 Increased risk for d iabetes: 5.7 - 6.4diabetes: >6.4glycemic control for adults with diabetes: <7.0 Iron [Mass/volume] in Serum or PlasmaOrdered By: Sammie Gonzalez on 05-01-2022 Iron [Mass/Vol] 48 ug/dL 40-150 [facility] - Chemistry and C hemistry - challengeOrdered By: Sammie Gonzalez 05-01-2022 Natriuretic peptide B (Bld) [Mass/Vol] 7.0 pg/mL 5-100 [facility] - Hematology and Cell countsOrdered By: Sammie Gonzalez 2 Nucleated RBC/100 WBC (Bld) [Ratio] 0.0 % 0-0.5 [facility] Lymphocytes Auto (Bld) [#/Vo l]Ordered By: Sammie Gonzalez on 05-01-2022 Lymphocytes (Bld) [#/Vol] 1.4 10*3/uL 1.00-4.8 [facility] Lymphocytes/100 WBC Auto (Bl d)Ordered By: Sammie Gonzalez on 05-01-2022 Lymphocytes/100 WBC (Bld) 23.0 % . [facility] MCH Auto (RBC) [Entitic mass ]Ordered By: Sammie Gonzalez on 05-01-2022 MCH (RBC) [Entitic mass] 28.9 pg 24.7-34.3 [facility] MCHC Auto (RBC) [Mass/Vol]Or dered By: Sammie Gonzalez on 05-01-2022 MCHC (RBC) [Mass/Vol] 32.4 g/dL 32.0-35.0 [facility] MCV Auto (RBC) [Entitic vol] Ordered By: Sammie Gonzalez on 05-01-2022 MCV (RBC) [Entitic vol] 89.1 fL 80-100 [facility] Monocytes Auto (Bld) [#/Vol] Ordered By: Sammie Gonzalez on 05-01-2022 Monocytes (Bld) [#/Vol] 0.6 10*3/uL 0.0-0.8 [facility] Monocytes/100 WBC Auto (Bld) Ordered By: Sammie Gonzalez on 05-01-2022 Monocytes/100 WBC (Bld) 9.1 % . [facility] Neutrophils Auto (Bld) [#/Vo l]Ordered By: Sammie Gonzalez on 05-01-2022 Neutrophils (Bld) [#/Vol] 4.0 10*3/uL 1.8-7.7 [facility] Neutrophils/100 WBC Auto (Bl d)Ordered By: Sammie Gonzalez on 05-01-2022 Neutrophils/100 WBC (Bld) 65.9 % . [facility] No Panel InformationOrdered By: Sammie Gonzalez on 05-01-2022 Estimated GFR () > 60 mL/Min [facility] Comment on above: GFR estimated refere nce range: According to KDOQI guidelines, <60 ml/min/1.73m2 is sufficient to diagnose a patient with chronic kidney disease. Pharmacy Creatinine Clearance (Chem N/A [facility] Platelet mean volume Auto (B ld) [Entitic vol]Ordered By: Sammie Gonzalez on 05-01-2022 Platelet mean volume (Bld) [Entitic vol] 8.5 fL 6.3-10.7 [facility] Platelets Auto (Bld) [#/Vol] Ordered By: Sammie Gonzalez on 05-01-2022 Platelets (Bld) [#/Vol] 385 10*3/uL 150-450 [facility] Protein [Mass/volume] in Ser um or PlasmaOrdered By: Sammie Gonzalez on 05-01-2022 Protein [Mass/Vol] 6.3 g/dL 6.1-7.9 [facility] RBC Auto (Bld) [#/Vol]Ordere d By: Sammie Gonzalez on 05-01-2022 RBC (Bld) [#/Vol] 4.31 10*6/uL 3.60-5.00 [facility] Serum or plasma alanine bass otransferase measurement without P-5'-P (enzymatic activiOrdered By: Sammie Gonzalez on 05-01-2022 ALT No additional P-5'-P [Catalytic activity/Vol] 22 U/L 10-60 [facility] Serum or plasma albumin/glob ulin mass ratioOrdered By: Sammie Gonzalez on 05-01-2022 Albumin/Globulin [Mass ratio] 1.7 {ratio} [facility] Serum or plasma alkaline leela sphatase measurement (enzymatic activity/volume)Ordered By: Sammie Gonzalez on 05-01-2022 ALP [Catalytic activity/Vol] 52 U/L 32-92 [facility] Serum or plasma aspartate am inotransferase measurement (enzymatic activity/volume)Ordered By: Sammie Gonzalez on 05-01-2022 AST [Catalytic activity/Vol] 17 U/L 10-42 [facility] Serum or plasma calcium kiara urement (mass/volume)Ordered By: Sammie Gonzalez on 05-01-2022 Calcium [Mass/Vol] 9.5 mg/dL 8.2-10.2 [facility] Serum or plasma chloride aby surement (moles/volume)Ordered By: Sammie Gonzalez on 05-01-2022 Chloride [Moles/Vol] 100 mmol/L 95-114 [facility] Serum or plasma glucose kiara urement (mass/volume)Ordered By: Sammie Gonzalez on 05-01-2022 Glucose [Mass/Vol] 96 mg/dL 70-100 [facility] Comment on above: ADA recommended refe rence [...] in HDL [Mass/Vol] 78 mg/dL 35-85 [facility] Comment on above: HDL CHOL ATP-III CLA SSIFICATION Cardiovascular Risk HDL > or equal to 60 mg/dL LOW HDL < 40 mg/dL HIGH HDL CHOL ATP-III CLA SSIFICATION Cardiovascular RiskHDL > or equal to 60 mg/dL LOWHDL < 40 mg/dL HIGH Serum or plasma potassium me asurement (moles/volume)Ordered By: Sammie Gonzalez on 05-01-2022 Potassium [Moles/Vol] 4.2 mmol/L 3.5-5.1 [facility] Serum or plasma sodium measu rement (moles/volume)Ordered By: Sammie Gonzalez on 05-01-2022 Sodium [Moles/Vol] 134 mmol/L 136-146 [facility] Serum or plasma thyroxine (T 4) measurement (mass/volume)Ordered By: Sammie Gonzalez on 05-01-2022 T4 [Mass/Vol] 9.20 ug/dL 5.39-11.82 [facility] Serum or plasma total biliru bin measurement (mass/volume)Ordered By: Sammie Gonzalez on 05-01-2022 Bilirubin [Mass/Vol] 0.4 mg/dL 0.3-1.2 [facility] Serum or plasma total carbon dioxide measurement (moles/volume)Ordered By: Sammie Gonzalez on 05-01-2022 CO2 [Moles/Vol] 24.2 mmol/L 22.0-30.0 [facility] Serum or plasma total choles terol/high density lipoprotein (HDL) cholesterol mass ratOrdered By: Sammie Gonzalez on 05-01-2022 Cholesterol.total/Tali sterol in HDL [Mass ratio] 2.4 {ratio} <5.0 [facility] Serum or plasma urea nitroge n measurement (mass/volume)Ordered By: Sammie Gonzalez on 05-01-2022 Urea nitrogen [Mass/Vol] 14 mg/dL 9- [facility] TSH DL <= 0.005 mIU/L QnOrde red By: Sammie Gonzalez on 05-01-2022 TSH Qn 3.07 m[IU]/L 0.45-5.33 [facility] Triglyceride [Mass/volume] i n Serum or PlasmaOrdered By: Sammie Gonzalez on 05-01-2022 Triglyceride [Mass/Vol] 97 mg/dL 35-149 [facility] Comment on above: TRIG ATP III [...] on 05-01-2022 T3RU 25 % 24-39 [facility] Comment on above: Performed at: [facility] [email or web address] [address] [id number] Senior Medical Billing Specialist: Maxim Daniel PhD, Phone: [phone] Performed at: [facility] [email or web address] [place], [place] [id number] Director: Maxim Daniel PhD, Phone: [phone] XR wrist RT 2Von 01-24-2022 XR wrist RT 2V [facility] [employer] Other XR wrist RT 2V [facility] Main [facility] [employer] Other XR wrist RT 2V [address] [place] [address] [employer] Other XR wrist RT 2[place] [address] No rt [employer] Other XR wrist RT 2V XRay Report [employer] Other XR wrist RT 2V Signed [employer] Other XR wrist RT 2V Patient: Kourtney Novak MR#: [id number] [facility] [employer] Other XR wrist RT 2V [id number] [employer] Other XR wrist RT 2V : 1975 Acct:[id number] [employer] Other XR wrist RT 2V Age/Sex: 46 / F ADM Date: 01/24/22 [employer] Other XR wrist RT 2V [place] [facility] [place]: Type : [facility] [employer] Other XR wrist RT 2V Attending Dr: Naz Gomes MD [employer] Other XR wrist RT 2V Ordering Provider: Elyssa Gomes MD [facility] Other XR wrist RT 2V Date of Service: 01/24/22 [facility] Other XR wrist RT 2V XR/XR wrist RT 2V: Osteochondrosis of lunate of right wrist [employer] Other XR wrist RT 2V Copies to: Elyssa Gomes MD [employer] Other XR wrist RT 2V Right wrist 01/24/2022. [employer] Other XR wrist RT 2V CLINICAL DATA: Osteochondrosis of lunate of right wrist. [facility] Other XR wrist RT 2V FINDINGS: 2 views of the right wrist were obtained and are compared with a prior study 12/24/2021. [facility] Other XR wrist RT 2V No acute fracture or dislocation is identified. The lunate again appears sclerotic. This finding [facility] Other XR wrist RT 2V has not significantl y changed. No collapse is seen. No soft tissue swelling is visualized. [facility] Other XR wrist RT 2V XR/XR wrist RT 2V [facility] Other XR wrist RT 2V IMPRESSION: Scleroti c lunate, not significantly changed. [facility] Other XR wrist RT 2V Impression dictated by: Brody Marks Jr., M.D.01/24/2022 3:00 PM [facility] Other XR wrist RT 2V Dictation Location: [place] [address] [employer] Other XR wrist RT 2V Transcribed By: PWS 01/24/22 1500 [employer] Other XR wrist RT 2V Dictated By: Brody Marks Jr, MD 01/24/22 1454 [employer] Other XR wrist RT 2V Signed By: [employer] Other XR wrist RT 2V 01/24/22 1500 [place] Other XR wrist RT min 3V*on 2021 XR wrist RT min 3V* [facility] Other XR wrist RT min 3V* [facility] [place] [employer] Other XR wrist RT min 3V* [facility] [employer] Other XR wrist RT min 3V* VIVIEN Giron [address] [facility] Other XR wrist RT min 3V* XRay Report [place] [employer] Other XR wrist RT min 3V* Signed [facility] Other XR wrist RT min 3V* Patient: Kourtney Novak MR#: [id number] [employer] Other XR wrist RT min 3V* [id number] [employer] Other XR wrist RT min 3V* : 1975 Acct:[id number] [employer] Other XR wrist RT min 3V* Age/Sex: 46 / F ADM Date: 11/20/21 [facility] Other XR wrist RT min 3V* Loc: [facility] Room: Type : [facility] [employer] Other XR wrist RT min 3V* Attending Dr: Naz Gomes MD [employer] Other XR wrist RT min 3V* Ordering Provider: Elyssa Gomes MD [employer] Other XR wrist RT min 3V* Date of Service: 11/20/21 [employer] Other XR wrist RT min 3V* XR/XR wrist RT min 3V*: Other specified postprocedural [employer] Other XR wrist RT min 3V* states;Osteochondros i s of [facility] Other XR wrist RT min 3V* Copies to: Elyssa Gomes MD [employer] Other XR wrist RT min 3V* 4 viewsRIGHT wrist plain film [employer] Other XR wrist RT min 3V* COMPARISON:None [facility] Other XR wrist RT min 3V* HISTORY: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 No collapse identified. Calculi metacarpal bones [employer] Other XR wrist RT min 3V* identified. No soft tissue abnormality seen. [employer] Other XR wrist RT min 3V* XR/XR wrist RT min 3V* [employer] Other XR wrist RT min 3V* IMPRESSION:Sclerotic changes of the lunate. Adequate bony alignment. No collapse. [facility] Other XR wrist RT min 3V* Impression dictated by: George Gray M.D.11/20/2021 3:59 PM [facility] Other XR wrist RT min 3V* Dictation Location: [place] [address] [facility] Other XR wrist RT min 3V* Transcribed By: GRACIE 11/20/21 [facility]9 [facility] Other XR wrist RT min 3V* Dictated By: George Gray DO 11/20/21 [facility] [employer] Other XR wrist RT min 3V* Signed By: [employer] Other XR wrist RT min 3V* 11/20/21 1551 No [employer] Other XR wrist RT min 3V*on 2020 XR wrist RT min 3V* [facility] Other XR wrist RT min 3V* [facility] [place] [employer] Other XR wrist RT min 3V* [address] [place] [address] [employer] Other XR wrist RT min 3V* [place] [address] [employer] Other XR wrist RT min 3V* XRay Report [employer] Other XR wrist RT min 3V* Signed [facility] Other XR wrist RT min 3V* Patient: Kourtney Novak MR#: [id number] [facility] Other XR wrist RT min 3V* [id number] [facility] Other XR wrist RT min 3V* : 1975 Acct:[id number] [employer] Other XR wrist RT min 3V* Age/Sex: 45 / F ADM Date: 08/28/21 [facility] Other XR wrist RT min 3V* Loc: [facility] Room: Type : [facility] Other XR wrist RT min 3V* Attending Dr: Naz Gomes MD [facility] Other XR wrist RT min 3V* Ordering Provider: Elyssa Gomes MD [facility] Other XR wrist RT min 3V* Date of Service: 08/28/21 [employer] Other XR wrist RT min 3V* XR/XR wrist RT min 3V*: M92.211 [employer] Other XR wrist RT min 3V* Copies to: Elyssa Gomes MD [facility] Other XR wrist RT min 3V* RIGHT WRIST - 4 views [facility] Other XR wrist RT min 3V* CLINICAL DATA: Right wrist pain and decreased range of motion. No injury. [facility] Other XR wrist RT min 3V* COMPARISON: 11/15/2020 and MRI 11/15/2020 [employer] Other XR wrist RT min 3V* AP, lateral, oblique and ulnar deviation views were obtained. There is no acute fracture or [facility] Other XR wrist RT min 3V* dislocation. Minor sclerosis is again seen at the lunate where there is also subchondral cystic [facility] Other XR wrist RT min 3V* change medially. Thi s is similar to the prior. There is no developing joint space narrowing or [employer] Other XR wrist RT min 3V* hypertrophy. No prominent soft tissue swelling is noted. [facility] Other XR wrist RT min 3V* XR/XR wrist RT min 3V* [employer] Other XR wrist RT min 3V* IMPRESSION: Idalia [employer] Other XR wrist RT min 3V* BONY CHANGES AT THE LUNATE, SIMILAR TO THE COMPARISON. [facility] Other XR wrist RT min 3V* NO ACUTE FINDINGS. [facility] Other XR wrist RT min 3V* Impression dictated by: Trixie Irizarry M.D.08/28/2021 4:42 PM [facility] Other XR wrist RT min 3V* Dictation Location: [place] [address] [facility] Other XR wrist RT min 3V* Transcribed By: GRACIE 08/28/21 1642 [facility] Other XR wrist RT min 3V* Dictated By: Trixie Irizarry MD 08/28/21 1639 [facility] Other XR wrist RT min 3V* Signed By: [employer] Other XR wrist RT min 3V* 08/28/21 1642 No [employer] Other XR FOOT 3V AP/LAT/OBL BILon 03-04-2021 [...] No other significant abnormality. --- IMPRESSION: NORMAL Nub Card Tender: GUANACO Transcribe Date/Time: Mar 04 2021 2:52P Dictated by : TOBI HERRMANN MD This examination was interpreted and the report reviewed and electronically signed by: TOBI HERRMANN MD on Mar 04 2021 2:57PM EST [id number] N [facility] XR HAND 3V PA/LAT/OBL BILon 03-04-2021 XR [...] REMOTE FRACTURES OF THE LEFT WRIST DESCRIBED Nub Card Tender: GUANACO Transcribe Date/Time: Mar 04 2021 2:57P Dictated by : TOBI HERRMANN MD This examination was interpreted and the report reviewed and electronically signed by: TOBI HERRMANN MD on Mar 04 2021 2:59PM EST [id number] N [facility] Vital Signs Date Time Vital Sign Value Performing Clinician Facility 05-23-2025 13:21-0400 Body mass index (BMI) [Ratio] 41.27 kg/m2 Sharon Wilburn SOLAR INSTALLER TECHNICIAN Work Phone: [facility] 05-23-2025 13:21-0400 Body temperature 98.29 [degF] Sharon Wilburn SOLAR INSTALLER TECHNICIAN Work Phone: [facility] 05-23-2025 13:21-0400 Body weight 112.49 kg Sharon Wilburn SOLAR INSTALLER TECHNICIAN Work Phone: [facility] 05-23-2025 13:21-0400 Diastolic blood pressure 84 mm[Hg] Sharon Wilburn SOLAR INSTALLER TECHNICIAN Work Phone: [facility] 05-23-2025 13:21-0400 Heart rate 74 /min Sharon Wilburn SOLAR INSTALLER TECHNICIAN Work Phone: [facility] 05-23-2025 13:21-0400 SaO2% (BldA) [Mass fraction] 98 % Sharon Wilburn SOLAR INSTALLER TECHNICIAN Work Phone: [facility] 05-23-2025 13:21-0400 Systolic blood pressure 118 mm[Hg] Sharon Wilburn SOLAR INSTALLER TECHNICIAN Work Phone: [facility] 03-15-2025 12:03-0400 Body mass index (BMI) [Ratio] 40.83 kg/m2 Fellow Appointments Work Phone: [facility] 03-15-2025 12:03-0400 Body weight 111.3 kg Fellow Appointments Work Phone: [facility] Comment on above: with shoes 03-15-2025 12:03-0400 Diastolic blood pressure 79 mm[Hg] Fellow Appointments Work Phone: [facility] Comment on above: md notified 03-15-2025 12:03-0400 Heart rate 82 /min Fellow Appointments Work Phone: [facility] 03-15-2025 12:03-0400 Respiratory rate 18 /min Fellow Appointments Work Phone: [facility] 03-15-2025 12:03-0400 SaO2% (BldA) [Mass fraction] 99 % Fellow Appointments Work Phone: [facility] 03-15-2025 12:03-0400 Systolic blood pressure 156 mm[Hg] Fellow Appointments Work Phone: [facility] Comment on above: md notified 03-13-2025 13:17-0400 Body height 165.1 cm Zeinab Rice WHCNP Work Phone: [facility] 03-13-2025 13:17-0400 Body mass index (BMI) [Ratio] 40.77 kg/m2 Zeinab Rice WHCNP Work Phone: [facility] 03-13-2025 13:17-0400 Body weight 111.13 kg Zeinab Rice WHCNP Work Phone: [facility] 03-13-2025 13:17-0400 Diastolic blood pressure 74 mm[Hg] Zeinab Rice WHCNP Work Phone: [facility] 03-13-2025 13:17-0400 Heart rate 76 /min Zeinab Rice WHCNP Work Phone: [facility] 03-13-2025 13:17-0400 Respiratory rate 16 /min Zeinab Rice WHCNP Work Phone: [facility] 03-13-2025 13:17-0400 SaO2% (BldA) [Mass fraction] 97 % Zeinab Rice WHCNP Work Phone: [facility] 03-13-2025 13:17-0400 Systolic blood pressure 126 mm[Hg] Zeinab Mckinney CN Work Phone: [facility] 03-06-2025 10:11-0400 Body mass index (BMI) [Ratio] 39.95 kg/m2 Mario Alberto Phillips RN [facility] 03-06-2025 10:11-0400 Body temperature 99.19 [degF] Mario Alberto Phillips RN [facility] 03-06-2025 10:11-0400 Body weight 108.9 kg Mario Alberto Phillips RN [facility] 03-06-2025 10:11-0400 Diastolic blood pressure 64 mm[Hg] Mario Alberto Phillips RN [facility] 03-06-2025 10:11-0400 Heart rate 93 /min Mario Albertoes Phillips RN [facility] 03-06-2025 10:11-0400 Respiratory rate 18 /min Mario Alberto Phillips RN [facility] 03-06-2025 10:11-0400 SaO2% (BldA) [Mass fraction] 100 % Mario Alberto Phillips RN [facility] Comment on above: 03-06-2025 10:11-0400 Systolic blood pressure 149 mm[Hg] Mario Alberto Phillips RN [facility] 02-20-2025 15:51-0400 SaO2% (BldA) [Mass fraction] 98 % ERIK PINEDA [facility] Comment on above: Order Comment: Specimen Type: ARTERIAL B LOOD SPECIMENOrdering Facility: [facility] Address: [address] [place] [address] Performed By: #### A LLMG ####[facility] LABCLIA [id number] [address] [place] 02-20-2025 13:28-0400 SaO2% (BldA) [Mass fraction] 99 % ERIK PINEDA [facility] Comment on above: Order Comment: Specimen Type: ARTERIAL B LOOD SPECIMENOrdering Facility: [facility] Address: [address] [place] [address] Performed By: #### A LLMG ####[facility] LABCLIA [id number] [facility] [place] [address] [place] 02-14-2025 07:42-0400 Body height 163.8 cm Pacc 2 Work Phone: [facility] 02-14-2025 07:42-0400 Body mass index (BMI) [Ratio] 40.98 kg/m2 Pacc 2 Work Phone: [facility] 02-14-2025 07:42-0400 Body temperature 98.71 [degF] Pacc 2 Work Phone: [facility] 02-14-2025 07:42-0400 Body weight 110 kg Pacc 2 Work Phone: [facility] 02-14-2025 07:42-0400 Diastolic blood pressure 74 mm[Hg] Pacc 2 Work Phone: [facility] 02-14-2025 07:42-0400 Heart rate 80 /min Pacc 2 Work Phone: [facility] 02-14-2025 07:42-0400 Respiratory rate 16 /min Pacc 2 Work Phone: [facility] 02-14-2025 07:42-0400 SaO2% (BldA) [Mass fraction] 96 % Pacc 2 Work Phone: [facility] 02-14-2025 07:42-0400 Systolic blood pressure 114 mm[Hg] Pacc 2 Work Phone: [facility] 12-28-2024 09:34-0400 Body mass index (BMI) [Ratio] 41.06 kg/m2 Zeinab Wood MD Work Phone: [facility] 12-28-2024 09:34-0400 Body weight 110.2 kg Zeinab Wood MD Work Phone: [facility] 12-28-2024 09:34-0400 Diastolic blood pressure 65 mm[Hg] Zeinab Wood MD Work Phone: [facility] 12-28-2024 09:34-0400 Heart rate 109 /min Zeinab Wood MD Work Phone: [facility] 12-28-2024 09:34-0400 Systolic blood pressure 104 mm[Hg] Zeinab Wood MD Work Phone: [facility] 07-13-2024 17:34-0400 Body mass index (BMI) [Ratio] 40.77 kg/m2 Estevan Polanco SOLAR INSTALLER TECHNICIAN Work Phone: [facility] 07-13-2024 17:34-0400 Body temperature 98.71 [degF] Estevan Polanco SOLAR INSTALLER TECHNICIAN Work Phone: [facility] 07-13-2024 17:34-0400 Body weight 111.13 kg Estevan Polanco SOLAR INSTALLER TECHNICIAN Work Phone: [facility] 07-13-2024 17:34-0400 Diastolic blood pressure 88 mm[Hg] Estevan Polanco SOLAR INSTALLER TECHNICIAN Work Phone: [facility] 07-13-2024 17:34-0400 Heart rate 87 /min Estevan Polanco SOLAR INSTALLER TECHNICIAN Work Phone: [facility] 07-13-2024 17:34-0400 SaO2% (BldA) [Mass fraction] 99 % Estevan Polanco SOLAR INSTALLER TECHNICIAN Work Phone: [facility] 07-13-2024 17:34-0400 Systolic blood pressure 124 mm[Hg] Estevan Polanco SOLAR INSTALLER TECHNICIAN Work Phone: [facility] 05-30-2024 09:38-0400 Body mass index (BMI) [Ratio] 40.61 kg/m2 Zeinab Wood MD Work Phone: [facility] 05-30-2024 09:38-0400 Body weight 109 kg Zeinab Wood MD Work Phone: [facility] 05-30-2024 09:38-0400 Diastolic blood pressure 72 mm[Hg] Zeinab Wood MD Work Phone: [facility] 05-30-2024 09:38-0400 Heart rate 87 /min Zeinab Wood MD Work Phone: [facility] 05-30-2024 09:38-0400 Respiratory rate 18 /min Zeinab Wood MD Work Phone: [facility] 05-30-2024 09:38-0400 Systolic blood pressure 109 mm[Hg] Zeinab Wood MD Work Phone: [facility] 06-30-2023 10:52-0400 Body height 164 cm Erik Pineda MD Work Phone: [facility] 06-30-2023 10:52-0400 Body temperature 98.71 [degF] Erik Pineda MD Work Phone: [facility] 06-30-2023 10:52-0400 Body weight 101.88 kg Erik Pineda MD Work Phone: [facility] 06-30-2023 10:52-0400 Diastolic blood pressure 58 mm[Hg] Erik Pineda MD Work Phone: [facility] 06-30-2023 10:52-0400 Heart rate 103 /min Erik Pineda MD Work Phone: [facility] 06-30-2023 10:52-0400 Respiratory rate 18 /min Erik Pineda MD Work Phone: [facility] 06-30-2023 10:52-0400 SaO2% (BldA) [Mass fraction] 97 % Erik Pineda MD Work Phone: [facility] 06-30-2023 10:52-0400 Systolic blood pressure 117 mm[Hg] Erik Pineda MD Work Phone: [facility] 05-06-2023 07:10-0400 Body height 165.1 cm MD Sammie Gonzalez Work Phone: [facility] 05-06-2023 07:10-0400 Body weight 102.05 kg MD Sammie Gonzalez Work Phone: [facility] 03-31-2023 09:30-0400 Body height 165.1 cm Russell Shields Other [employer] Other 03-31-2023 09:30-0400 Body mass index (BMI) [Ratio] 36.94 kg/m2 Russell Shields Other [employer] Other 03-31-2023 09:30-0400 Body weight 100.7 kg Russell Shields Other [employer] Other 03-31-2023 09:30-0400 Diastolic blood pressure 68 mm[Hg] Russell Shields Other [employer] Other 03-31-2023 09:30-0400 Systolic blood pressure 109 mm[Hg] Russell Shields Other [employer] Other 09-29-2022 15:28-0500 Body weight 114.08 kg Zeinab Wood MD Work Phone: [facility] 09-29-2022 15:28-0500 Diastolic blood pressure 56 mm[Hg] Zeinab Wood MD Work Phone: [facility] 09-29-2022 15:28-0500 Heart rate 99 /min Zeinab Wood MD Work Phone: [facility] 09-29-2022 15:28-0500 Systolic blood pressure 115 mm[Hg] Zeinab Wood MD Work Phone: [facility] 07-17-2022 15:45-0400 Body height 165.1 cm Beti Bowles Other [employer] Other 03-31-2022 14:00-0400 Body height 165.1 cm Beti Bowles Other [employer] Other 03-31-2022 14:00-0400 Body mass index (BMI) [Ratio] 39.6 kg/m2 Beti Bowles Other [employer] Other 03-31-2022 14:00-0400 Body weight 107.96 kg Beti [facility] Other [employer] Other 01-27-2022 14:15-0400 Body height 165.1 cm Beti [facility] Other [employer] Other 01-27-2022 14:15-0400 Body mass index (BMI) [Ratio] 39.93 kg/m2 Beti [facility] Other [employer] Other 01-27-2022 14:15-0400 Body weight 108.86 kg Beti [facility] Other [employer] Other 01-20-2022 11:03-0400 Body height 165.1 cm Zeinab Wood MD Work Phone: [facility] 01-20-2022 11:03-0400 Body weight 104.06 kg Zeinab Wood MD Work Phone: [facility] 01-20-2022 11:03-0400 Diastolic blood pressure 67 mm[Hg] Zeinab Wood MD Work Phone: [facility] 01-20-2022 11:03-0400 Heart rate 108 /min Zeinab Wood MD Work Phone: [facility] 01-20-2022 11:03-0400 Systolic blood pressure 113 mm[Hg] Zeinab Wood MD Work Phone: [facility] 11-20-2021 16:15-0500 Body height 165.1 cm Elyssa Gomes Other [employer] Other 11-20-2021 16:15-0500 Body mass index (BMI) [Ratio] 39.93 kg/m2 Elyssa Gomes Other [employer] Other 11-20-2021 16:15-0500 Body weight 108.86 kg Elyssa Calvey Other [employer] Other 10-08-2021 15:15-0500 Body height 165.1 cm Elyssa Calvey Other [employer] Other 10-08-2021 15:15-0500 Body mass index (BMI) [Ratio] 39.43 kg/m2 Elyssa Calvey Other [employer] Other 10-08-2021 15:15-0500 Body weight 107.5 kg Elyssa Calvey Other [employer] Other 08-28-2021 16:15-0500 Body height 165.1 cm Elyssa Calvey Other [employer] Other 08-28-2021 16:15-0500 Body mass index (BMI) [Ratio] 38.77 kg/m2 Elyssa Calvey Other [employer] Other 08-28-2021 16:15-0500 Body weight 105.69 kg Elyssa Calvey Other [employer] Other Encounters Encounter Date Encounter Type Care Provider Facility Start: 05-26-2025 End: 05-26-2025 Patient encounter procedure Sammie Langston MD -[facility] Start: 05-26-2025 End: 05-26-2025 ambulatory Sammie Gonzalez MD Work Phone: [facility] Work Phone: Start: 05-24-2025 ambulatory Zeinab morley [facility] Start: 05-23-2025 End: 05-23-2025 Office outpatient visit 25 minutes Sharon Wilburn SOLAR INSTALLER TECHNICIAN Work Phone: [facility] Comment on above: Fibromyalgia Start: 05-23-2025 End: 05-23-2025 ambulatory SHARON WILBURN Not Available Start: 05-17-2025 End: 05-18-2025 Refill Rachele Mcknightdan SEPTIC TANK SERVICE TECHNICIAN.VARIETY LATHE OPERATOR Work Phone: Neurology [facility] Comment on above: Refill Request Start: 04-25-2025 End: 04-26-2025 Refill Zeinab Wood MD Work Phone: Rheumatology Comment on above: Refill Request Start: 04-24-2025 End: 04-24-2025 ambulatory Ridge Hollingsworth MD Facility:[facility] Start: 04-12-2025 End: 04-12-2025 Telemedicine consultation with patient Rachele Fenton SEPTIC TANK SERVICE TECHNICIAN.VARIETY LATHE OPERATOR Work Phone: Neurology Start: 04-12-2025 End: 04-12-2025 ambulatory Mohammad Hamdan SEPTIC TANK SERVICE TECHNICIAN.VARIETY LATHE OPERATOR Work Phone: Neurology Comment on above: Meningioma (HCC) (Pr imary Dx); Chronic daily headache Start: 03-29-2025 End: 03-29-2025 Telemedicine consultation with patient Erik Pineda MD Work Phone: [facility] Start: 03-29-2025 End: 03-29-2025 ambulatory Erik Pineda MD Work Phone: [facility] Comment on above: Intracranial meningi sera (HCC) (Primary Dx); Postprocedural state; Dizziness and giddiness Start: 03-26-2025 End: 03-27-2025 ambulatory Erik Pineda MD Work Phone: [facility] Comment on above: Incision Start: 03-22-2025 End: 03-22-2025 ambulatory Sammie Gonzalez MD Work Phone: [facility] Work Phone: Start: 03-22-2025 End: 03-22-2025 Patient encounter procedure Elyssa Gomes MD -[facility] Work Phone: Start: 03-20-2025 End: 03-20-2025 [...] Office outpatient visit 10 minutes Zeinab Mckinney [facility] Work Phone: [facility] Start: 03-12-2025 End: 03-13-2025 Refill Rachele Fenton APRN.VARIETY LATHE OPERATOR Work Phone: Neurology [facility] Comment on above: Refill Request Start: 03-08-2025 End: 03-08-2025 Telephone encounter Mario Alberto Phillips RN [facility] Comment on above: Surgical Followup Start: 03-06-2025 End: 03-06-2025 Refill Zeinab Wood MD Work Phone: Rheumatology Comment on above: Refill Request Start: 03-06-2025 End: 03-06-2025 Nursing evaluation of patient and report Mario Alberto Phillips RN [facility] Comment on above: S/P craniotomy (Prim kt Dx); Intracranial meningioma (HCC); Postop check Start: 03-06-2025 End: 03-06-2025 ambulatory SAMMIE M LUISPiedad Facility:[facility] Start: 03-02-2025 End: 03-02-2025 Admission to same day surgery center Heather Moy APRN.VARIETY LATHE OPERATOR Work Phone: Neurosurgery Comment on above: Benign neoplasm of m eninges (HCC) (Primary Dx) Start: 03-02-2025 End: 03-02-2025 Telemedicine consultation with patient Heather Moy VARIETY LATHE OPERATOR Work Phone: Neurosurgery Start: 03-02-2025 End: 03-02-2025 ambulatory SAMMIE GONZALEZ Facility:[facility] Start: 02-24-2025 End: 02-27-2025 Refill Zeinab Wood MD Work Phone: Rheumatology Comment on above: Refill Request Start: 02-23-2025 End: 02-23-2025 Telephone encounter [facility] Alber[facility] Phillips [facility] Comment on above: Surgical Followup Start: 02-20-2025 End: 02-22-2025 Evaluation and management of inpatient SAMMIE GONZALEZ Facility:[facility] Start: 02-17-2025 End: 02-17-2025 Telephone encounter Mario Alberto Phillips RN [facility] Comment on above: PreOp Call Start: 02-15-2025 End: 02-15-2025 Telemedicine consultation with patient Erik Pineda MD Work Phone: [facility] Start: 02-15-2025 End: 02-17-2025 ambulatory Erik Pindea MD Work Phone: [facility] Comment on above: Intracranial meningi sera (HCC) (Primary Dx) Consent Start: 02-15-2025 End: 02-15-2025 Telephone encounter Mehul Martin APRN.VARIETY LATHE OPERATOR Work Phone: Pre Anesthesia Comment on above: Patient Update Start: 02-15-2025 End: 02-15-2025 ambulatory SAMMIE Langston Piedad Facility:[facility] Start: 02-15-2025 Encounter for other preprocedural examination ERIK PINEDA [facility] Start: 02-14-2025 Encounter for other preprocedural examination ERIK PINEDA [facility] Start: 02-14-2025 End: 02-14-2025 Patient encounter status Mri (1.5t) Work Phone: [facility] Start: 02-14-2025 End: 02-14-2025 Subsequent hospital visit by physician Christine [facility] Alyssa (1.5t) Work Phone: Radiology Comment on above: Intracranial meningi sera (HCC) [D32.0] Start: 02-14-2025 End: 02-14-2025 [facility] Work Phone: [facility] Start: 02-14-2025 End: 02-14-2025 Anesthesia consultation [facility] 2 Work Phone: Pre Anesthesia Comment on above: Pre-op evaluation (P rimary Dx); Anxiety; Chronic obstructive pulmonary disease, unspecified COPD type ([facility]); Depression, unspecified depression type; Type 2 diabetes [...] Start: 02-14-2025 End: 02-14-2025 Patient encounter status [facility] 2 Work Phone: [facility] Start: 02-14-2025 End: 02-14-2025 Preprocedural examination done [facility] 2 Work Phone: [facility] Work Phone: Start: 02-14-2025 End: 02-14-2025 ambulatory ZEINAB WOOD Facility:[facility] Start: 02-10-2025 End: 02-10-2025 Patient encounter procedure Sammie Gonzalez MD Work Phone: [facility] [facility] [place] Work Phone: Start: 02-10-2025 End: 02-10-2025 ambulatory Sammie Gonzalez MD Work Phone: [facility] Work Phone: Start: 02-01-2025 End: 02-01-2025 Patient encounter procedure Sammie Gonzalez MD Work Phone: [facility] Work Phone: Start: 01-23-2025 End: 01-26-2025 Refill Mohammad Hamdan SEPTIC TANK SERVICE TECHNICIAN.VARIETY LATHE OPERATOR Work Phone: Neurology [facility] Comment on above: Med Change Request Start: 01-06-2025 End: 01-06-2025 ambulatory SAMMIE GONZALEZ Facility:[facility] Start: 12-29-2024 End: 12-29-2024 Refill Mohammad Hamdan SEPTIC TANK SERVICE TECHNICIAN.VARIETY LATHE OPERATOR Work Phone: Neurology [facility] Comment on above: Refill Request Start: 12-28-2024 End: 12-28-2024 Office outpatient visit 25 minutes Zeinab Wood MD Work Phone: Rheumatology Comment on above: Inflammatory arthrit is (Primary Dx); Fibromyalgia; Encounter for medication monitoring Start: 12-28-2024 End: 12-28-2024 ambulatory ZEINAB WOOD Facility:[facility] Start: 12-27-2024 End: 12-27-2024 ambulatory Sammie Gonzalez MD Work Phone: [facility] Work Phone: Start: 12-27-2024 End: 12-27-2024 Patient encounter procedure Sammie Gonzalez MD Work Phone: [facility] Work Phone: Start: 12-13-2024 End: 12-13-2024 Patient encounter procedure Sammie Gonzalez MD Work Phone: [facility] C[facility]-Lab [facility] Start: 12-13-2024 End: 12-13-2024 ambulatory Sammie Gonzalez MD Work Phone: [facility] Work Phone: Start: 12-05-2024 End: 12-05-2024 Telephone encounter Mario Alberto Phillips RN [facility] Comment on above: Care Coordination (M yChart Follow up - Surgery Planning ) Start: 11-03-2024 End: 11-03-2024 Patient encounter procedure Sammie Gonzalez MD Work Phone: [facility] Work Phone: Start: 11-03-2024 End: 11-03-2024 ambulatory Sammie Gonzalez MD Work Phone: [facility] Work Phone: Start: 10-10-2024 End: 10-10-2024 Telephone encounter Zeinab Wood MD Work Phone: Rheumatology Comment on above: Meter Tester Polyphase - O ther (Lab order problem/) Refill Request Start: 09-27-2024 End: 09-27-2024 ambulatory Sammie Gonzalez MD Work Phone: [facility] Work Phone: Start: 09-27-2024 End: 09-27-2024 Patient encounter procedure Sammie Gonzalez MD Work Phone: [facility] Work Phone: Start: 09-20-2024 End: 09-21-2024 Telephone encounter Zeinab Wood MD Work Phone: Rheumatology Comment on above: Results (Lab results from [facility]) Start: 09-20-2024 End: 09-20-2024 Patient encounter procedure Sammie Gonzalez MD Work Phone: [facility] Start: 09-20-2024 End: 09-20-2024 ambulatory Sammie Gonzalez MD Work Phone: [facility] Work Phone: Start: 09-16-2024 End: 09-16-2024 Patient encounter procedure Sammie Gonzalez MD Work Phone: [facility] Work Phone: Start: 09-16-2024 End: 09-16-2024 ambulatory Sammie Gonzalez MD Work Phone: [facility] Work Phone: Start: 09-09-2024 End: 09-15-2024 ambulatory Zeinab Wood MD Work Phone: Rheumatology Start: 09-09-2024 End: 09-15-2024 Patient encounter procedure Zeinab Wood MD Work Phone: Rheumatology Comment on above: Labs Start: 08-28-2024 End: 09-09-2024 Refill Zeinab Wood MD Work Phone: Rheumatology Comment on above: Refill Request Start: 08-01-2024 End: 08-01-2024 ambulatory Ridge Hollingsworth MD Facility:[facility] Start: 07-18-2024 End: 07-18-2024 ambulatory Ridge Hollingsworth MD Facility:[facility] Start: 07-13-2024 End: 07-13-2024 ambulatory ESTEVAN POLANCO Not Available Start: 07-13-2024 End: 07-13-2024 Office outpatient visit 25 minutes Estevan Polanco SOLAR INSTALLER TECHNICIAN Work Phone: [facility] Comment on above: Tooth infection (Ingrid cezar Dx) Start: 07-04-2024 End: 07-04-2024 ambulatory Ridge Hollingsworth MD Facility:[facility] Start: 06-22-2024 End: 06-22-2024 Patient encounter procedure MD Sammie Gonzalez Work Phone: [facility]Lab [facility] Start: 06-22-2024 End: 06-22-2024 ambulatory MD Sammie Gonzalez Work Phone: [facility] Work Phone: Start: 06-21-2024 End: 06-21-2024 ambulatory MD Sammie Gonzalez Work Phone: [facility] Work Phone: Start: 06-21-2024 End: 06-21-2024 Patient encounter procedure MD Sammie Gonzalez Work Phone: [facility] Work Phone: Start: 06-20-2024 End: 06-20-2024 ambulatory Ridge Hollingsworth MD Facility:[facility] Start: 05-30-2024 End: 05-30-2024 ambulatory ZEINAB WOOD Facility:[facility] Start: 05-30-2024 End: 05-30-2024 Patient encounter procedure Zeinab Wood MD Work Phone: Rheumatology Comment on above: Inflammatory arthrit is (Primary Dx); Fibromyalgia; Medication monitoring encounter Start: 05-25-2024 End: 05-26-2024 Refill Mohammamacrina Mcknightdan SEPTIC TANK SERVICE TECHNICIAN.VARIETY LATHE OPERATOR Work Phone: Neurology [facility] Comment on above: Refill Request Start: 05-12-2024 End: 05-12-2024 ambulatory MD Sammie Gonzalez Work Phone: [facility] Work Phone: Start: 05-12-2024 End: 05-12-2024 Patient encounter procedure MD Sammie Gonzalez Work Phone: [facility]Lab [facility] Start: 05-09-2024 End: 05-09-2024 ambulatory Ridge Hollingsworth MD Facility:[facility] Start: 03-25-2024 Refill Zeinab Wood MD Work Phone: Rheumatology Comment on above: Refill Request Start: 03-21-2024 ambulatory Mohammad Hamda n SEPTIC TANK SERVICE TECHNICIAN.VARIETY LATHE OPERATOR Work Phone: Neurology [facility] Comment on above: Robaxin Start: 03-18-2024 ambulatory Mohammad Hamda n SEPTIC TANK SERVICE TECHNICIAN.VARIETY LATHE OPERATOR Work Phone: [facility] Comment on above: Insurance Start: 03-08-2024 Telephone encounter Eirk martinez MD Work Phone: [facility] Comment on above: epidural steroid inj ection Start: 03-04-2024 End: 03-04-2024 ambulatory MD Sammie Gonzalez Work Phone: [facility] Work Phone: Start: 03-04-2024 End: 03-04-2024 Patient encounter procedure MD Sammie Gonzalez Work Phone: [facility] Work Phone: Start: 02-15-2024 End: 02-15-2024 ambulatory MD Sammie Gonzalez Work Phone: [facility] Work Phone: Start: 02-15-2024 End: 02-15-2024 Patient encounter procedure MD Sammie Gonzalez Work Phone: [facility]tr-Ultrasound Main [place] Work Phone: Start: 02-10-2024 Telephone encounter Rachele acevedo SEPTIC TANK SERVICE TECHNICIAN.VARIETY LATHE OPERATOR Work Phone: Neurology Comment on above: Insurance Authorizat ion; Aurelio PA - Medicare / [employer]. Start: 02-09-2024 End: 02-09-2024 ambulatory MD Sammie Gonzalez Work Phone: [facility] Work Phone: Start: 02-09-2024 End: 02-09-2024 Patient encounter procedure MD Sammie Gonzalez Work Phone: [facility]-MRI [address] Work Phone: Start: 02-05-2024 End: 02-05-2024 ambulatory Rachele Fenton SEPTIC TANK SERVICE TECHNICIAN.VARIETY LATHE OPERATOR Work Phone: Neurology Headache [facility] Comment on above: Meningioma (HCC) (Pr imary Dx); Chronic daily headache Start: 02-05-2024 End: 02-05-2024 Telemedicine consultation with patient Rachele Fenton APRN.VARIETY LATHE OPERATOR Work Phone: Neurology Headache [facility] Start: 02-02-2024 End: 02-02-2024 ambulatory Fellow Appointments Work Phone: [facility] Comment on above: Intracranial meningi sera (HCC) (Primary Dx) Start: 02-02-2024 End: 02-02-2024 Telemedicine consultation with patient Fellow Appointments Work Phone: [facility] Start: 02-02-2024 Telephone encounter Mario Alberto Phillips RN [facility] Comment on above: Appointment Start: 01-30-2024 Refill Fahad Corey MD Work Phone: Neurology Headache [facility] Comment on above: Refill Request Start: 01-29-2024 ambulatory ERIK F PINEDA Facilit y:[facility] Start: 01-29-2024 End: 01-29-2024 Subsequent hospital visit by physician [facility] Work Phone: [facility] Comment on above: 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 Work Phone: Start: 01-19-2024 Telephone encounter Mario Alberto Phillips RN [facility] Comment on above: Schedule Surgery ([place] rgery Planning ) Start: 01-08-2024 Telephone encounter Zeinab kenyon MD Work Phone: Rheumatology Comment on above: Results Start: 01-08-2024 End: 01-08-2024 ambulatory MD Sammie Gonzalez Work Phone: [facility] Work Phone: Start: 01-08-2024 End: 01-08-2024 Patient encounter procedure MD Sammie Gonzalez Work Phone: [facility]Lab [facility] Start: 01-05-2024 Telephone encounter Mario Alberto Phillips RN [facility] Comment on above: Schedule Surgery Start: 01-04-2024 Telephone encounter Zeinab kenyon MD Work Phone: Rheumatology Comment on above: Lab Orders/FAX Start: 11-29-2023 Refill Zeinab Wood MD Work Phone: Rheumatology Comment on above: Refill Request Start: 11-25-2023 End: 11-25-2023 Patient encounter procedure MD Sammie Gonzalez Work Phone: [facility] Work Phone: Start: 11-12-2023 Refill Zeinab Wood MD Work Phone: Rheumatology Comment on above: Refill Request Start: 11-11-2023 Telephone encounter Mario Alberto Phillips RN [facility] Comment on above: Care Coordination (f ollow up) Start: 11-11-2023 End: 11-11-2023 Patient encounter procedure MD Sammie Gonzalez Work Phone: [facility]Lab [facility] Start: 11-10-2023 Refill Zeinab Wood MD Work Phone: Rheumatology Comment on above: Refill Request Start: 11-09-2023 Refill Zeinab Wood MD Work Phone: Rheumatology Comment on above: Refill Request Start: 07-05-2023 Admission [facility] Erik Pineda MD Work Phone: [facility] Comment on above: Surgery Start: 07-05-2023 ambulatory Erik castañeda MD Work Phone: [facility] Start: 07-02-2023 Telephone encounter Erik martinez MD Work Phone: [facility] Comment on above: Patient Update (Disc uss Surgery March 2024) Start: 06-30-2023 End: 06-30-2023 Patient encounter procedure Erik Pineda MD Work Phone: [facility] Comment on above: Intracranial meningi sera (HCC) (Primary Dx) Start: 06-26-2023 End: 06-26-2023 Office outpatient new 45 minutes Fahad Corey MD Work Phone: Neurology Headache [facility] Comment on above: Medication overuse h eadache (Primary Dx); Brain mass; Meningioma (HCC); Chronic daily headache Start: 05-22-2023 End: 05-22-2023 ambulatory MD Sammie Gonzalez Work Phone: [facility] Work Phone: Start: 05-22-2023 End: 05-22-2023 Patient encounter procedure MD Sammie Gonzalez Work Phone: [facility]Lab [facility] Start: 05-13-2023 Telephone encounter Moira thayer SEPTIC TANK SERVICE TECHNICIAN.VARIETY LATHE OPERATOR Work Phone: [facility] Comment on above: TRIAGE Start: 05-06-2023 End: 05-06-2023 ambulatory MD Sammie Gonzalez Work Phone: [facility] Work Phone: Start: 05-06-2023 End: 05-06-2023 Patient encounter procedure MD Sammie Gonzalez Work Phone: [facility]-MRI Main [place] Work Phone: Start: 04-29-2023 End: 04-29-2023 ambulatory MD Sammie Gonzalez Work Phone: [facility] Work Phone: Start: 04-29-2023 End: 04-29-2023 Patient encounter procedure MD Sammie Gonzalez Work Phone: [facility] Work Phone: Start: 04-15-2023 End: 04-15-2023 ambulatory MD Sammie Gonzalez Work Phone: [facility] Work Phone: Start: 04-15-2023 End: 04-15-2023 Patient encounter procedure MD Sammie Gonzalez Work Phone: [facility]Lab [facility] Start: 04-13-2023 Refill Zeinab Wood MD Work Phone: Rheumatology Comment on above: Refill Request Start: 04-13-2023 Refill Zeinab Wood MD Work Phone: Rheumatology Comment on above: Refill Request Start: 04-06-2023 End: 04-06-2023 Patient encounter procedure MD Sammie Gonzalez Work Phone: [facility] Work Phone: Start: 03-31-2023 End: 03-31-2023 ambulatory Russell Shields Other [employer] Other Start: 03-31-2023 Patient encounter procedure Russell Shields [facility] G[facility] Start: 03-07-2023 Refill Zeinab Wood MD Work Phone: Rheumatology Comment on above: Refill Request Start: 01-18-2023 Refill Zeinab Wood MD Work Phone: Rheumatology Comment on above: Refill Request Start: 12-17-2022 End: 12-17-2022 ambulatory Elyssa Gomes Other [employer] Other Start: 12-17-2022 Office outpatient visit [address] [facility] Start: 12-11-2022 ambulatory Zeinab Wood MD [...] encounter procedure MD Sammie Gonzalez Work Phone: [facility] Start: 09-24-2022 End: 09-24-2022 ambulatory MD Sammie Gonzalez Work Phone: [facility] Work Phone: Start: 09-24-2022 Office outpatient visit 15 minutes [facility] Start: 08-05-2022 Office outpatient visit 15 minutes Elyssa [facility] Start: 08-05-2022 End: 08-05-2022 ambulatory MD Sammie Gonzalez Work Phone: [facility] Work Phone: Start: 08-05-2022 End: 08-05-2022 Patient encounter procedure MD Sammie Gonzalez Work Phone: [facility] Start: 07-29-2022 End: 07-29-2022 ambulatory MD Sammie Gonzalez Work Phone: [facility] Work Phone: Start: 07-29-2022 End: 07-29-2022 Patient encounter procedure MD Sammie Gonzalez Work Phone: [facility]-Lab [facility] [place] Start: 07-17-2022 End: 07-17-2022 ambulatory Beti Bowles Other [employer] Other Start: 07-17-2022 Office outpatient visit 15 minutes Beti Bowles [facility] Start: 06-25-2022 End: 06-25-2022 ambulatory Beti Bowles Other [employer] Other Start: 06-25-2022 Office outpatient visit 15 minutes Beti Bowles [facility] Start: 05-10-[address] SAMMIE GONZALEZ Facility :[facility] Start: 05-06-2022 End: 05-06-2022 Patient encounter procedure MD Sammie Gonzalez Work Phone: [facility] Start: 05-01-2022 End: 05-01-2022 Patient encounter procedure MD Sammie Gonzalez Work Phone: [facility] [place] Start: 03-31-2022 End: 03-31-2022 ambulatory Beti Bowles Other [employer] Other Start: 03-31-2022 Office outpatient visit 15 minutes Beti Bowles [facility] Start: 03-21-2022 End: 03-21-2022 Discharged Recurring MD Sammie Gonzalez Work Phone: [facility] Therapy [place] Start: 01-27-2022 End: 01-27-2022 ambulatory Beti Bowles Other [employer] Other Start: 01-27-2022 Office outpatient visit 15 minutes Beti Bowles [facility] Start: 01-24-2022 End: 01-24-2022 ambulatory Elyssa Gomes Other [employer] Other Start: 01-24-2022 Office outpatient visit 15 minutes Elyssa Gomes [facility] Start: 01-20-2022 End: 01-20-2022 ambulatory Beti Bowles Other [employer] Other Start: 01-20-2022 Office outpatient visit 15 minutes Beti Bowles [facility] Start: 01-20-2022 End: 01-20-2022 Patient encounter procedure Zeinab Wood MD Work Phone: Rheumatology Comment on above: Inflammatory arthrit is (Primary Dx); Myalgia Start: 12-24-2021 End: 12-24-2021 ambulatory Elyssa Calvey Other [employer] Other Start: 12-24-2021 Postop follow up vis it related to original px Elyssa Calvey [facility] Start: 12-19-2021 End: 12-19-2021 ambulatory Beti Bowles Other [employer] Other Start: 12-19-2021 Telephone encounter Beti Bowles [facility] Start: 12-02-2021 End: 12-02-2021 ambulatory Beti Bowles Other [employer] Other Start: 12-02-2021 Office outpatient visit 15 minutes Beti Bowles [facility] Start: 11-20-2021 End: 11-20-2021 ambulatory Elyssa Calvey Other [employer] Other Start: 11-20-2021 Postop follow up vis it related to original px Elyssa Calvey [facility] Start: 10-08-2021 End: 10-08-2021 ambulatory Elyssa Calvey Other [employer] Other Start: 10-08-2021 Office outpatient visit 25 minutes Elyssa Calvey [facility] Start: 08-28-2021 End: 08-28-2021 ambulatory Elyssa Calvey Other [employer] Other Start: 08-28-2021 Office outpatient visit 25 minutes Elyssa Calvey [facility] Start: 08-12-2021 End: 08-12-2021 ambulatory Elyssa Calvey Other [employer] Other Start: 08-12-2021 Telephone encounter Elyssa Calvey [facility] Start: 06-18-2021 Office outpatient visit 15 minutes Elyssa Calvey [facility] Start: 06-05-2021 Office outpatient visit [address] [facility] Start: 05-11-2017 End: 05-12-2017 Ambulatory DEFAULT PHYSICIAN Facility:[facility] Procedures Date Procedure Procedure [...] Comment: Speci men Type: BLOOD SPECIMENOrdering Facility: [facility] Address: [address] [place] [address] Performed By: #### T [id number] ####CC MAIN BLOOD BANKCLIA [id number] [place] [address] [place] Start: 02-10-2025 Ultrasonography of b ilateral kidneys Sammie Gonzalez MD Work Phone: Start: 12-27-2024 Plain X-ray of right wrist Sammie Gonzalez MD Work Phone: Start: 11-03-2024 Plain X-ray [...] Author Start: 08-17-2025 Hemoglobin A1c measurement HbA1C [facility] Start: 06-29-2025 End: 06-29-2025 Patient encounter procedure 06/29/2025 1:40 PM EDT Office Visit Rheumatology [address] [place] [address] Zeinab Wood MD [address] [place], [place] [id number] 6 month follow up Rheumatology Comment on above: 6 month follow up Start: 06-27-2025 [facility] Work Phone: Start: 06-22-2025 End: 06-22-2025 Patient encounter procedure 06/22/2025 2:20 PM EDT Office Visit Rheumatology [address] [place] [address] Zeinab Wood MD [address] [place] [address] 6 month follow up Rheumatology Comment on above: 6 month follow up Start: 05-24-2025 Kourtney Novak [facility] Work Phone: Start: 05-15-2025 Influenza vaccination [facility] Start: 04-12-2025 End: 04-12-2025 ambulatory 04/12/2025 7:00 AM EDT [facility] Neurology [address] [id number] Rachele Fetnon, SEPTIC TANK SERVICE TECHNICIAN.VARIETY LATHE OPERATOR [address] [id number] Tension headaches Neurology Comment on above: Tension headaches Start: 03-29-2025 End: 03-29-2025 ambulatory 03/29/2025 10:30 AM EDT [facility] [address] [id number] Erik Pineda MD [address] [id number] postop [facility] Comment on above: postop Start: 03-13-2025 [facility] Work Phone: Start: 03-06-2025 End: 03-06-2025 Nursing evaluation of patient and report 03/06/2025 10:30 AM EDT Nurse Visit [facility] [address] [id number] Mario Alberto Phillips, RN [address] [place] [address] postop [facility] Comment on above: postop Start: 03-02-2025 End: 03-02-2025 Admission to same day surgery center 03/02/2025 1:00 PM EDT [facility] Neurosurgery [address] [address] Heather Moy, SEPTIC TANK SERVICE TECHNICIAN.VARIETY LATHE OPERATOR [address] [place] [address] Surgical Pathology discussion Neurosurgery Comment on above: Surgical Pathology discussion Start: 02-20-2025 End: 02-20-2025 Admission to same day surgery center 02/20/2025 12:45 PM EDT - 02/20/2025 6:45 PM EDT Surgery Admitting [facility] [id number] Erik Pineda MD [facility] [phone] ORBITOCRANIAL TO ANT CRAN FOSSA W/ SUPRAORB [...] 12:45 PM EDT Hospital Encounter Admitting [address] [place] [address] Erik Pineda MD [address] [place] [address] Intracranial meningioma (HCC) [D32.0], Preop testing [Z01.818] Admitting Comment on above: Intracranial meningioma (HCC) [D32.0], P reop testing [Z01.818] Start: 02-20-2025 End: 02-20-2025 Admission to same day surgery center 02/20/2025 7:30 AM EDT - 02/20/2025 1:30 PM EDT Surgery Admitting [address] [place] [address] Erik Pineda MD [address] [place] [address] ORBITOCRANIAL TO ANT CRAN FOSSA W/ SUPRAORB [...] 7:30 AM EDT Hospital Encounter Admitting [address] [place] [address] Erik Pineda MD [address] [place] [address] Intracranial meningioma (HCC) [D32.0], Preop testing [Z01.818] Admitting Comment on above: Intracranial meningioma (HCC) [D32.0], P reop testing [Z01.818] Start: 02-15-2025 End: 02-15-2025 Admission to same day surgery center 02/15/2025 2:30 PM EDT [facility] [address] [place] [address] Erik Pineda MD [address] [place] [address] surgery discussion/ consent / MRI review [facility] Comment on above: surgery discussion/ consent / MRI review Start: 02-14-2025 End: 05-16-2025 CONFIRM BLOOD TYPE CONFIRM BLOOD TYPE Blood Bank Routine Pre-op evaluation Expected: 02/14/2025, Expires: 05/16/2025 [facility] Comment on above: Expected: 02/14/2025, Expires: Start: 02-14-2025 End: 05-16-2025 Hemoglobin A1c in Blood HEMOGLOBIN A1C Lab Routine Pre-op evaluation Type 2 diabetes mellitus without complication, without long-term current use of insulin (HCC) Expected: 02/14/2025, Expires: 05/16/2025 [facility] Work Phone: Comment on above: Expected: 02/14/2025, Expires: Start: 02-14-2025 End: 02-14-2025 Patient encounter procedure 02/14/2025 9:20 AM EDT Appointment Rad[facility] [address] [facility] [place] [address] MRI BRAIN WO/W IVCON Radiology Comment on above: MRI BRAIN WO/W IVCON Start: 02-14-2025 End: 02-14-2025 ambulatory 02/14/2025 8:30 AM EDT Results Only [place] [facility] [address] [facility] [place] [address] Labs [place] [facility] Comment on above: Labs Start: 02-14-2025 End: 02-14-2025 Anesthesia consultation 02/14/2025 7:40 AM EDT PAT Pre Anesthesia [address] [place] [address] 2, Pacc [place] [address] [facility] [place] [address] PRE OP CLEARANCE Pre Anesthesia Comment on above: PRE OP CLEARANCE Start: 01-06-2025 End: 01-06-2025 ambulatory 01/06/2025 8:45 AM EDT [facility] Neurology Headache [facility] [address] [place] [address] Rachele Fenton, SEPTIC TANK SERVICE TECHNICIAN.VARIETY LATHE OPERATOR [address] [place] [address] I want to stop taking my medicine Neurology [facility] Comment on above: I want to stop taking my medicine Start: 12-28-2024 End: 12-28-2024 Patient encounter procedure 12/28/2024 9:20 AM EDT Office Visit Rheumatology [address] [place] [address] Zeinab Wood MD [address] [place] [address] 6 month follow up Rheumatology Comment on above: 6 month follow up Start: 12-27-2024 Plain X-ray of right wrist XR wrist RT min 3V* [facility] Start: 12-27-2024 XR Wrist - right GE 3 Views [facility] Start: 11-03-2024 Plain X-ray of left shoulder XR shoulder LT min 2V* [facility] Start: 11-03-2024 XR Shoulder - left Views [facility] Start: 09-14-2024 Medicare Advantage Annual Wellness Visit Medicare Advantage Annual Wellness Visit [facility] Start: 05-30-2024 End: 05-30-2024 Patient encounter procedure 05/30/2024 9:40 AM EDT Office Visit Rheumatology [address] [place] [address] Zeinab Wood MD [address] [place] [address] Return in about 8 months (around 05/29/2024) for arthralgias, FM . Rheumatology Comment on above: Return in about 8 months (around 05/29/20) for arthralgias, FM . Start: 05-15-2024 Covid-19 Vaccine ( season) Covid-19 Vaccine ( season) [facility] Start: 05-15-2024 Covid-19 Vaccine ( season) Covid-19 Vaccine () [facility] Start: 05-15-2024 Influenza vaccination [facility] Start: 04-04-2024 End: 04-04-2024 Admission to same day surgery center 04/04/2024 7:30 AM EDT - 04/04/2024 2:30 PM EDT Surgery Admitting [address] [place] [address] Erik Pineda MD [address] [place] [address] ORBITOCRANIAL TO ANT CRAN FOSSA W/ SUPRAORB [...] 7:30 AM EDT Hospital Encounter Admitting [address] [place] [address] Erik Pineda MD [address] [place] [address] Intracranial meningioma (HCC) [D32.0] Admitting Comment on above: Intracranial meningioma (HCC) [D32.0] Start: 03-22-2024 End: 03-22-2024 Patient encounter procedure Pre Anesthesia Comment on above: Preop, ORBITOCRANIAL TO ANT CRAN FOSSA W / SUPRAORB RIDGE OSTEOTOMY & ELEV FRONT&TEMP LOBE Preop lab and nasal swab Start: 03-04-2024 DIABETES SCREEN DIABETES SCREEN [facility] Start: 03-04-2024 Diabetes Screening Diabetes Screening [facility] Start: 02-05-2024 End: 02-05-2024 ambulatory 02/05/2024 7:00 AM EDT [facility] Neurology Headache [facility] [address] [place] [address] Rachele Fenton APRN.VARIETY LATHE OPERATOR [address] [place] [address] f/u Neurology Headache [facility] Comment on above: f/u Start: 01-29-2024 End: 01-29-2024 Patient encounter procedure [facility] Comment on above: R Sphenoid Wing Meningioma Start: 01-21-2024 End: 01-21-2024 ambulatory 01/21/2024 2:30 PM EDT [facility] [address] [place] [address] Laron Lou DO, PhD [address] [facility] [address] [place] [address] Check up for headaches [facility] Comment on above: Check up for headaches Start: 09-14-2023 Behavioral Health Screening Behavioral Health Screening [facility] Start: 09-14-2023 Depression Assessment Depression Assessment [facility] Start: 05-15-2023 Covid-19 Vaccine ( season) Covid-19 Vaccine () [facility] Start: 05-15-2023 Influenza vaccination [facility] Start: 2022 COLOGUARD (FIT-DNA) COLOGUARD (FIT-DNA) [facility] Start: 2022 Colonoscopy COLONOSCOPY [facility] Start: 2022 COLORECTAL CANCER SCREENING COLORECTAL CANCER SCREENING [facility] Start: [address] COLONOGRAPHY [facility] Start: 2022 FECAL OCCULT BLOOD FECAL OCCULT BLOOD [facility] Start: 2022 Lipid 1996 panel - Serum or Plasma Lipid Screening [facility] Start: 2022 Lipid panel Lipid Screening [facility] Start: 2022 LIPID SCREEN LIPID SCREEN [facility] Start: 2022 Screening for malignant neoplasm of colon [facility] Start: 2022 SIGMOIDOSCOPY SIGMOIDOSCOPY [facility] Start: 09-14-2022 DEPRESSION ASSESSMENT DEPRESSION ASSESSMENT [facility] Start: 05-06-2022 Plain X-ray of right wrist XR wrist RT min 3V* [facility] Start: 05-06-2022 End: 05-06-2022 Patient encounter procedure Departed [facility] Start: 05-01-2022 End: 05-01-2022 Patient encounter procedure Departed [facility] [place] Start: 03-01-2022 Adult depression screening assessment DEPRESSION SCREENING [facility] Start: 07-04-2021 Urine microalbumin profile DTaP,Tdap,Td Vaccine (1 - Tdap) [facility] Start: 03-21-2021 COVID-19 VACCINE (3 - Booster for Pfizer series) COVID-19 VACCINE (3 - Booster for Pfizer series) [facility] Start: 03-21-2021 COVID-19 VACCINE (3 - Pfizer series) COVID-19 VACCINE (3 - Pfizer series) [facility] Start: 02-21-2021 COVID-19 VACCINE (3 - Pfizer risk 4-dose series) COVID-19 VACCINE (3 - Pfizer risk 4-dose series) [facility] Start: 02-21-2021 COVID-19 VACCINE (3 - Pfizer risk series) COVID-19 VACCINE (3 - Pfizer risk series) [facility] Start: 2017 Mammography [facility] Start: 2017 Screening for malignant neoplasm of breast [facility] Start: 2007 HPV TESTING HPV TESTING [facility] Start: 2007 Screening for malignant neoplasm of cervix [facility] Start: 1998 PAP TESTING PAP TESTING [facility] Start: 1998 Screening for malignant neoplasm of cervix [facility] Start: 1996 Hepatitis B Vaccine (1 of 3 - 19+ 3-dose series) Hepatitis B Vaccine (1 of 3 - 19+ 3-dose series) [facility] Start: 1996 Pneumococcal vaccination Pneumococcal Vaccine (1 of 2 - PCV) [facility] Start: 1996 SHINGRIX VACCINE (1 of 2) SHINGRIX VACCINE (1 of 2) [facility] Start: 1996 Urine microalbumin profile [facility] Start: 1995 Annual PCP Team Chronic Disease Visit Annual PCP Team Chronic Disease Visit [facility] Start: 1995 Anxiety Screening Anxiety Screening [facility] Start: 1995 Depression Screening Depression Screening [facility] Start: 1995 Hepatitis B surface antibody level LDL Cholesterol [facility] Start: 1987 Diabetic foot examination Diabetic Foot Exam [facility] Start: 1987 Glaucoma screening Dilated Retinal Exam [facility] Start: 1987 Hepatitis B screening Urine Albumin:Creatinine Ratio [facility] Start: 1983 PNEUMOCOCCAL (1 - PCV) PNEUMOCOCCAL (1 - PCV) [facility] Start: 1982 Hemoglobin A1c measurement HbA1C [facility] Start: 1977 HEPATITIS B (1 of 3 - 3-dose series) HEPATITIS B (1 of 3 - 3-dose series) [facility] Start: 1977 Hepatitis B Vaccine (1 of 3 - 3-dose series) Hepatitis B Vaccine (1 of 3 - 3-dose series) [facility] Start: 1977 Screening for malignant neoplasm of colon [facility] End: 09-06-2025 Alanine aminotransferase [Enzymatic activity/volume] in Serum or Plasma ALANINE AMINOTRANSFERASE / SGPT Lab Routine Inflammatory arthritis Every 3 months for 4 Occurrences starting 09/09/2024 until 09/06/2025 [facility] Comment on above: Every 3 months for 4 Occurrences startin g 09/09/2024 until 09/06/2025 End: 10-10-2025 Alanine aminotransferase [Enzymatic activity/volume] in Serum or Plasma ALANINE AMINOTRANSFERASE / SGPT Lab Routine Encounter for medication monitoring Every 3 months for 4 Occurrences starting 10/10/2024 until 10/10/2025 [facility] Comment on above: Every 3 months for 4 Occurrences startin g 10/10/2024 until 10/10/2025 End: 09-06-2025 Aspartate aminotransferase [Enzymatic activity/volume] in Serum or Plasma ASPARTATE AMINOTRANSFERASE/SGOT Lab Routine Inflammatory arthritis Every 3 months for 4 Occurrences starting 09/09/2024 until 09/06/2025 [facility] Work Phone: Comment on above: Every 3 months for 4 Occurrences startin g 09/09/2024 until 09/06/2025 End: 10-10-2025 Aspartate aminotransferase [Enzymatic activity/volume] in Serum or Plasma ASPARTATE AMINOTRANSFERASE/SGOT Lab Routine Encounter for medication monitoring Every 3 months for 4 Occurrences starting 10/10/2024 until 10/10/2025 [facility] Work Phone: Comment on above: Every 3 months for 4 Occurrences startin g 10/10/2024 until 10/10/2025 Bacteria identified in Urine by Culture Urine Culture [facility] End: 09-06-2025 C reactive protein [Mass/volume] in Serum or Plasma C-REACTIVE PROTEIN Lab Routine Inflammatory arthritis Every 3 months for 4 Occurrences starting 09/09/2024 until 09/06/2025 [facility] Comment on above: Every 3 months for 4 Occurrences startin g 09/09/2024 until 09/06/2025 End: 10-10-2025 C reactive protein [Mass/volume] in Serum or Plasma C-REACTIVE PROTEIN Lab Routine Encounter for medication monitoring Every 3 months for 4 Occurrences starting 10/10/2024 until 10/10/2025 [facility] Comment on above: Every 3 months for 4 Occurrences startin g 10/10/2024 until 10/10/2025 End: 09-06-2025 CBC panel - Blood by Automated count COMPLETE BLOOD COUNT Lab Routine Inflammatory arthritis Every 3 months for 4 Occurrences starting 09/09/2024 until 09/06/2025 [facility] Comment on above: Every 3 months for 4 Occurrences startin g 09/09/2024 until 09/06/2025 End: 10-10-2025 CBC panel - Blood by Automated count COMPLETE BLOOD COUNT Lab Routine Encounter for medication monitoring Every 3 months for 4 Occurrences starting 10/10/2024 until 10/10/2025 [facility] Comment on above: Every 3 months for 4 Occurrences startin g 10/10/2024 until 10/10/2025 End: 09-06-2025 Erythrocyte sedimentation rate SEDIMENTATION RATE, WESTERGREN Lab Routine Inflammatory arthritis Every 3 months for 4 Occurrences starting 09/09/2024 until 09/06/2025 [facility] Comment on above: Every 3 months for 4 Occurrences startin g 09/09/2024 until 09/06/2025 End: 10-10-2025 Erythrocyte sedimentation rate SEDIMENTATION RATE, WESTERGREN Lab Routine Encounter for medication monitoring Every 3 months for 4 Occurrences starting 10/10/2024 until 10/10/2025 [facility] Comment on above: Every 3 months for 4 Occurrences startin g 10/10/2024 until 10/10/2025 Insulin [Units/volum e] in Serum or Plasma [facility] Insulin [Units/volum e] in Serum or Plasma [facility] End: 04-01-2026 MR Brain WO and W contrast IV MRI BRAIN WO/W IVCON Radiology Routine Benign neoplasm of meninges (HCC) 1 Occurrences starting 03/02/2025 until 04/01/2026 [facility] Work Phone: Comment on above: 1 Occurrences starting 03/02/2025 until 04/01/2026 MR Skull base WO and W contrast IV MRI SKULL BASE WO/W IVCON Radiology Routine Benign neoplasm of meninges (HCC) 01/29/2024 1:56 PM EDT [facility] Work Phone: [facility] Immunizations Immunization Date Immunization Notes Care Provider [facility] 06-29-2023 influenza virus vaccine, unspecified formulation [facility] 2 Work Phone: [facility] 06-18-2022 Influenza, injectabl e, Madin Fatimah Canine Kidney, preservative free, quadrivalent Estevan Polanco SOLAR INSTALLER TECHNICIAN Work Phone: [facility] 06-18-2022 influenza virus vaccine, unspecified formulation Fahad Corey MD Work Phone: [facility] 07-12-2021 influenza, injectabl e, quadrivalent, preservative free Estevan Polanco SOLAR INSTALLER TECHNICIAN Work Phone: [facility] 07-03-2021 tetanus and diphther ia toxoids, adsorbed, preservative free, for adult use (5 Lf of tetanus toxoid and 2 Lf of diphtheria toxoid) Estevan Polanco SOLAR INSTALLER TECHNICIAN Work Phone: [facility] 05-15-2021 Kenalog -40 mg Beti rice Other [facility] Other 04-10-2021 Kenalog -40 mg Beti Estivenar dwayne Other [employer] Other 01-24-2021 COVID-19 mRNA Comirnatpiedad (Pfizer) MD Sammie Gonzalez Work Phone: [facility] 01-02-2021 COVID-19 mRNA Comrk (Pfizer) MD Sammie Gonzalez Work Phone: [facility] 11-15-2020 Kenalog -40 mg Beti Estivenar dwayne Other [employer] Other 07-04-2020 Influenza, injectabl e, Madin Esmont Canine Kidney, preservative free, quadrivalent Estevan Polanco SOLAR INSTALLER TECHNICIAN Work Phone: [facility] 03-08-2020 Gel-Syn Beti Nevane y Other [employer] Other 03-01-2020 Gel-Syn Beti Kearne y Other [employer] Other 02-16-2020 Gel-Syn Beti Estivenarne y Other [employer] Other 01-26-2020 Kenalog -40 mg Beti Neva irce Other [facility] Other 02-02-2019 hepatitis A vaccine, adult dosage Estevan Polanco SOLAR INSTALLER TECHNICIAN Work Phone: [facility] 08-11-2017 Theraputic Injection Robert Bowles Other [employer] Other 08-04-2017 Theraputic Injection Robert Bowles Other [facility] Other 07-07-2017 Kenalog -40 mg Beti Neva madrigaly Other [facility] Other 06-23-2017 influenza virus vaccine, unspecified formulation 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 2024 Medicare [id number] 2024 Medicaid [id number] 2023 Medicaid [id number] 2023 Unknown 2009 Medicare MEDICARE MEDICAR E A AND B [id number] 2009-Present [phone] [address] [address] [place] [address] Medicare [id number] 2009 Medicare MEDICARE MEDICAR E A AND B [id number] 2009-Present [phone] [address] [address] [place] [address] Medicare [id number] 1977 Unknown [id number] 2.16.840.1.683892.3.579.2.5 93 1977 Unknown [id number] 2.16.840.1.918487.3.579.2.5 93 1977 Unknown [id number] 2.16.840.1.802851.3.579.2.1 96 1977 Unknown [id number] 2.16.840.1.663808.3.579.2.1 96 1977 Unknown [id number] 2.16.840.1.251615.3.579.2.1 96 1977 Unknown [id number] 2.16.840.1.439456.3.579.2.1 96 1977 Unknown [id number] 2.16.840.1.398765.3.579.2.1 96 1977 Unknown [id number] 2.16.840.1.863057.3.579.2.1 96 1977 Unknown [id number] 2.16.840.1.080936.3.579.2.1 259 1977 Unknown [id number] 2.16.840.1.421462.3.579.2.1 259 1977 Unknown [id number] 2.16.840.1.289545.3.579.2.7 16 1959 Medicare [id number] 2.16.840.1.684706.19 1959 Unknown [id number] Unknown HCAP/HFA/FAP Active [id number] Unknown [id number] 2.16.840.1.645612.3.579.2.5 31 Unknown [id number] 2.16.840.1.238842.3.579.2.5 31 Unknown [id number] 2.16.840.1.943905.3.579.2.5 31 Unknown [id number] 2.16.840.1.263463.3.579.2.5 31 Unknown [id number] 2.16.840.1.952675.3.579.2.5 31 Unknown [id number] 2.16.840.1.325225.3.579.2.5 31 Unknown [id number] 2.16.840.1.200354.3.579.2.5 31 Unknown [id number] 2.16.840.1.538686.3.579.2.5 31 Social History Date Type Detail Facility Start: 03-04-2021 End: 03-25-2023 Tobacco smoking status NHIS Ex-smoker [facility] Start: 03-04-2021 End: 02-14-2025 Tobacco use and exposure Smokeless tobacco non-user [facility] Start: 1975 Sex Assigned At Female [facility] Start: 01-10-2022 End: 01-20-2022 Exposure to SARS-CoV-2 (event) Not sure [facility] Start: 09-22-2022 End: 05-23-2025 Sex Assigned At [facility] History of tobacco use Current smoker [facility] Start: 09-22-2022 End: 05-23-2025 History of Social function [facility] Start: 08-15-2012 Adult Depression Screening Assessment 1 [facility] Start: 04-16-2018 Gender identity Identifies as female gender (finding) [facility] Start: 02-25-2021 Sexual orientation Heterosexual (finding) [facility] Start: 06-01-2023 End: 05-23-2025 Alcohol intake Current drinker of alcohol (finding) [facility] History of tobacco use Cigarette Smoker [facility] Start: 03-25-2023 Tobacco Comment >10 years since last smoked [facility] Start: 03-25-2023 Alcohol Comment caffeine: shad [facility] Start: 1975 Sex assigned at Not on file [facility] Start: 09-17-2024 End: 02-11-2025 Sex Female (finding) [facility] Start: 02-14-2025 Tobacco Comment Started 1994. Quit 2010. 1 ppd [facility] Start: 02-14-2025 Alcohol Comment 3-4 drinks on occasion [facility] Start: 03-13-2025 Tobacco smoking status NHIS Unknown if ever smoked [facility] Start: 03-13-2025 Alcohol intake Alcohol Use Details [facility] Medical Equipment Procedure Code Equipment Code Equipment Origin al Text Equipment Identifier Dates Start: 03-10-2023 Patch Duramatrix -Onlay Plus Collagen 2x2in Dural Regeneration Membrane - [id number] Start: 02-20-2025 Plate Bone 8 Hol e Profile - [id number] Start: 02-20-2025 Plate 3d Large B ox Low Profile Titanium Bone 2x2 Hole 1.5mm Screw - [id number] Start: 02-20-2025 Plate Low Profil e Titanium 12mm Bone 2 Hole Bar 1.5mm Screw Nonsterile - [id number] Start: 02-20-2025 Cover 10mm Mediu m Titanium Aline Hole Low Profile Tab 1.5mm Screws - [id number] Start: 02-20-2025 Screw Bone Unive rsal Neuro 3 4mm 1.5mm Self Drill Axial Stability Latex - [id number] Start: 02-20-2025 Telferner Neuro Axs Neuro Screw Disc Pre-Loaded 1.5mm X 4mm [id number] Start: 02-20-2025 Clinical Notes 03-04-2021 to 05-23-2025 Sharon Wilburn, PANDA - 05/23/2025 1:20 PM ED[place]elephone [place] - 05/18/2025 3:47 PM EDTTelephone Encounter - [place] - 05/18/2025 3:47 PM EDT Note Date & Type Note Facility 05-23-2025 History of Present illness Narrative Images from the original note were not included. [address] , [address] [facility], [address] P: [phone] F: [phone] HPI Historian of HPI: patient Kourtney Novak [...] up with rheumatology this week for recheck. Consulted Dr Shi regarding pt and plan of care. - ketorolac (Toradol) injection 60 mg documented in this encounter [facility] 05-18-2025 Telephone encounter Note Physician: Eliceo Call from pharmacy requesting refill. Please E-Scribe Last OV: with Hamdan Future OV: Not Scheduled. Requested Prescriptions Pending Prescriptions Disp Refills methocarbamol (ROBAXIN) 500 mg tablet [Pharmacy Med Name: METHOCARBAMOL 500 MG TABLET] 45 tablet 2 Sig: TAKE 1 TABLET BY MOUTH TWICE A DAY NEEDED Pharmacy Name: [facility] 05-18-2025 Miscellaneous Notes Physician: Eliceo Call from pharmacy requesting refill. Please E-Scribe Last OV: with Hamdan Future OV: Not Scheduled. Requested Prescriptions Pending Prescriptions Disp Refills methocarbamol (ROBAXIN) 500 mg tablet [Pharmacy Med Name: METHOCARBAMOL 500 MG TABLET] 45 tablet 2 Sig: TAKE 1 TABLET BY MOUTH TWICE A DAY NEEDED Pharmacy Name: [facility] documented in this encounter [facility] 04-26-2025 Telephone encounter Note Eye exam was completed and received 12/20/2024. [facility] 04-26-2025 Miscellaneous Notes Eye exam was [...] Days Visit Type Date Time Department [facility] 06/22/2025 2:20 PM [facility] Last [...] eye exam 12/20/24 documented in this encounter [facility] 04-26-2025 Telephone encounter Note She needs an eye exam if she wants future refills. The following approved medication requests have been transmitted electronically. Requested Prescriptions Signed Prescriptions Disp Refills hydrOXYchloroQUINE (PLAQUENIL) 200 mg tablet 60 tablet 2 Sig: TAKE 1 TABLET BY MOUTH TWICE A DAY Authorizing Provider: ZEINAB WOOD MD [facility] 04-25-2025 Telephone encounter Note Images from [...] [facility] 06/22/2025 2:20 PM [facility] Last [...] Lab Orders None Last eye exam 12/20/24 [facility] 04-12-2025 History of Present illness Narrative [facility] - Follow up [...] visit. Either the patient or their legal tour sales representative has been informed of the [...] Prescription for 10 mg nortriptyline sent to [facility], 2-month supply provided to accommodate tapering [...] these with the patient: yes Rachele Fenton APRN.VARIETY LATHE OPERATOR HEADACHE SCORES: 02/01/2024 12/30/2024 04/10/2025 Headache Questions [...] soft tissue component identified in the orbit. Nub Card Tender: PSCB Transcribe Date/Time: Jan 31 2024 3:33P [...] and clear, coherent, and relevant. Short and terminal manager memory, cognition and general fund of knowledge [...] Service: Virtual Visit 20 minutes Recording using [employer] software for draft documentation of the visit was discussed with the patient/authorized tour sales representative; all questions welcomed and answered. Patient/authorized tour sales representative agreed to proceed Rachele Fenton APRN.JOSSIE Headache Section [facility] April 12, 2025 documented in this encounter [facility] 04-12-2025 Note HNO ID: [id number] Author: RACHELE FENTON APRN.JOSSIE Service: ? Author [...] visit. Either the patient or their legal tour sales representative has been informed of the [...] Prescription for 10 mg nortriptyline sent to [facility], 2-month supply provided to accommodate tapering [...] mouth twice daily. (more content not included)... [facility] 03-29-2025 History of Present illness Narrative Images from the original note were not included. SECTION OF SKULL BASE SURGERY MINIMALLY INVASIVE CRANIAL BASE & PITUITARY SURGERY PROGRAM [facility] [place], [facility] TELEMEDICINE FOLLOW-UP VISIT This is a virtual visit. It required patient-provider interaction for the medical decision making as documented below. Kourtney Novak has consented for this telemedicine encounter. I have communicated my name and active licensure. The patient's identity and physical location were verified at the time of this visit. Either the patient or their legal tour sales representative has been informed of the [...] WHO grade 1 documented in this encounter [facility] 03-29-2025 Note HNO ID: [id number] Author: ERIK PINEDA MD Service: ? Author Type: Physician Type: Progress Notes Filed: 03/29/2025 10:48 Note Text: SECTION OF SKULL BASE SURGERY MINIMALLY INVASIVE CRANIAL BASE AND PITUITARY SURGERY PROGRAM [facility] [place], [facility] TELEMEDICINE FOLLOW-UP VISIT This is a virtual visit. It required patient-provider interaction for the medical decision making as documented below. Kourtney Novak has consented for this telemedicine encounter. I have communicated my name and active licensure. The patient's identity and physical location were verified at the time of this visit. Either the patient or their legal tour sales representative has been informed of the [...] 50 mcg tablet (more content not included)... [facility] 03-27-2025 Telephone encounter Note Hospital Discharge Summary faxed to Dr. Hoy. Saenz [facility] 03-27-2025 Miscellaneous Notes Hospital Discharge Summary faxed to Dr. Hoy. 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 Wound is healing appropriately. Will complete the 10 days dose of Bactrim. Prescribed accordingly. [facility]07-07-2025 Miscellaneous Notes* Telephone Encounter - Izabela Patton MD - 03/20/2025 10:26 AM EDT Picture uploaded in SyncroPhi Systemshart reviewed. Wound is healing appropriately. Will complete the 10 days dose of Bactrim. Prescribed accordingly. [facility] in [facility]25 NoteHNO ID: [id number] Author: IZABELA PATTON MD Service: ? Author Type: Fellow Type: Progress Notes Filed: 03/15/2025 12:44 Note Text: SECTION OF SKULL BASE SURGERY MINIMALLY INVASIVE CRANIAL BASE AND PITUITARY SURGERY PROGRAM [facility], [facility] CC: Patient Care Team: Sammie Gonzalez MD [...] changes. PLAN: - Send a picture in [email or web address] on Thursday. - Bactrim DS x 5 [...] elevates symmetrically and uvul (more content not included)...[facility]07-02-2025 History of Present illness Narrative* Izabela Patton MD - 03/15/2025 12:31 PM EDT Images from the original note were not included. SECTION OF SKULL BASE SURGERY MINIMALLY INVASIVE CRANIAL BASE & PITUITARY SURGERY PROGRAM [facility], [facility] CC: Patient Care Team: Sammie Gonzalez MD [...] changes. PLAN: - Send a picture in Planet Sush[employer] on Thursday. - Bactrim DS x 5 [...] Take 1 tablet by mouth two times aday for 5 days. No current facility-administered medications [...] DATA REVIEW: Imaging: None for this visit. * Yuly Do MA - 03/15/2025 12:02 PM EDT Additional intake questions: Has the patient had fever, nausea, vomiting, diarrhea, constipation, fatigue for > 1 week? No Does the patient have a decreased appetite? No Does patient want to see a Supervisor Instrument Repair? No (yes to any of above refer patient to schedulers for dietitian appointment) ) Does patient have any new or increased numbness or tingling of extremities? No Is patient interested in fertility information? No Does patient need any prescription refills? No Does patient have an advanced directive in place? No, Patient referred to [facility] Telephone encounter Note * Telephone Encounter - Izabela Patton MD - 03/15/2025 12:17 PM EDT Ordered Bactrim. [facility]07-02-2025 Miscellaneous Notes* Telephone Encounter - Izabela Patton MD - 03/15/2025 12:17 PM EDT Ordered Bactrim. documented in this encounterMarymount Hospital07-02-2025 NoteHNO ID: [id number] Author: YULY DO MA Service: ? Author Type: Hand Rounder Type: Progress Notes Filed: 03/15/2025 12:44 Note Text: Additional intake questions: Has the patient had fever, nausea, vomiting, diarrhea, constipation, fatigue for > 1 week? No Does the patient have a decreased appetite? No Does patient want to see a Supervisor Instrument Repair? No (yes to any of above refer patient to schedulers for dietitian appointment) ) Does patient have any new or increased numbness or tingling of extremities? No Is patient interested in fertility information? No Does patient need any prescription refills? No Does patient have an advanced directive in place? No, Patient referred to [facility] Electronically Signed By: Yuly Do [facility] 03-13-2025 Telephone encounter Note* Telephone Encounter - Gifty Martinez - 03/13/2025 3:09 PM EDT Physician: Eliceo Call from pharmacy requesting refill. Please E-Scribe Last OV: 01/06/2025 with Eliceo Future OV: Not Scheduled. Requested Prescriptions Pending Prescriptions Disp Refills methocarbamol (ROBAXIN) 500 mg tablet [Pharmacy Med Name: METHOCARBAMOL 500 MG TABLET] 45 tablet 2 Sig: TAKE 1 TABLET BY MOUTH TWICE A DAY NEEDED Pharmacy Name: [facility]06-30-2025 Miscellaneous Notes* Telephone Encounter - Gifty Martinez - 03/13/2025 3:09 PM EDT Physician: Eliceo Call from pharmacy requesting refill. Please E-Scribe Last OV: 01/06/2025 with Eliceo Future OV: Not Scheduled. Requested Prescriptions Pending Prescriptions Disp Refills methocarbamol (ROBAXIN) 500 mg tablet [Pharmacy Med Name: METHOCARBAMOL 500 MG TABLET] 45 tablet 2 Sig: TAKE 1 TABLET BY MOUTH TWICE A DAY NEEDED Pharmacy Name: [facility] documented in [facility] encounterMary[facility]06[facility] Evaluation note* Type Assessment Date assessment Encounter for Depo-Provera contr aception [facility] Work Phone: [phone] Telephone encounter Note* Telephone Encounter - Mario Alberto Phillips RN - 03/08/2025 4:18 PM EDT Images from the original note were not included. [facility]06-25-2025 Miscellaneous Notes* Telephone Encounter - Mario Alberto Phillips RN - 03/08/2025 4:18 PM EDT Images from the original note were not included. documented in this encounterMarymount Hospital06-[facility]-2025 Telephone encounter Note * Telephone Encounter - Zeinab Wood MD - 03/06/2025 12:40 PM EDT The following approved medication requests have been transmitted electronically. Requested Prescriptions Pending Prescriptions Disp Refills DULoxetine (CYMBALTA) 60 mg capsule [Pharmacy Med Name: DULOXETINE HCL DR 60 MG CAP] 90 capsule 2 Sig: TAKE 1 CAPSULE BY MOUTH EVERY DAY Zeinab Wood MD [facility]06-23-2025 Miscellaneous Notes* Telephone Encounter - Zeinab Wood MD - 03/06/2025 12:40 PM EDT The following approved medication requests have been transmitted electronically. Requested Prescriptions Pending Prescriptions Disp Refills DULoxetine (CYMBALTA) 60 mg capsule [Pharmacy Med Name: DULOXETINE HCL DR 60 MG CAP] 90 capsule 2 Sig: TAKE 1 CAPSULE BY MOUTH EVERY DAY Zeinab Wood MD * Telephone Encounter - BetsymaxxChantal MA - 03/06/2025 10:30 AM EDT Images [...] Days Visit Type Date Time Department [facility] 06/22/2025 2:20 PM [facility] Last [...] meningioma (HCC), Preop testing documented in this encounterMary[facility] Hospital06-[facility]-2025 NoteHNO ID: [id number] Author: MARIO ALBERTO PHILLIPS RN Service: ? [...] request and reach out to her through [employer] with a reply. Mario Alberto Phillips RN, Care CoordinatorSum[facility] History of Present illness Narrative* Mario Alberto [...] request and reach out to her through [employer] with a reply. Mario Alberto Phillips RN, Meter Tester Polyphase * Britton Tamez LPN - 03/06/2025 10:07 AM EDT Additional intake questions: Has the patient had fever, nausea, vomiting, diarrhea, constipation, fatigue for > 1 week? No Does the patient have a decreased appetite? No Does patient want to see a Supervisor Instrument Repair? No (yes to any of above refer patient to schedulers for dietitian appointment) ) Does patient have any new or increased numbness or tingling of extremities? No Is patient interested in fertility information? NA Does patient need any prescription refills? No Does patient have an advanced directive in place? Yes, copies are in [facility] documented in this encounterMarymount Hospital06-23-2025 Telephone encounter Note * Telephone Encounter - Chantal ChanRAJENDRA - 03/06/2025 10:30 AM EDT Images from [...] Days Visit Type Date Time Department [facility] 06/22/2025 2:20 PM [facility] Last [...] Assoc. diagnoses: Intracranial meningioma (HCC), Preop testing [facility]06-23-2025 NoteHNO ID: [id number] Author: BRITTON TAMEZ LPN Service: ? Author Type: LICENSED NURSE Type: Progress Notes Filed: 03/06/2025 14:25 Note Text: Additional intake questions: Has the patient had fever, nausea, vomiting, diarrhea, constipation, fatigue for > 1 week? No Does the patient have a decreased appetite? No Does patient want to see a Supervisor Instrument Repair? No (yes to any of above refer patient to schedulers for dietitian appointment) ) Does patient have any new or increased numbness or tingling of extremities? No Is patient interested in fertility information? NA Does patient need any prescription refills? No Does patient have an advanced directive in place? Yes, copies are in Epic Electronically Signed By: Britton Tamez [facility] 03-02-2025 History of Present illness Narrative* Heather Moy APRN.VARIETY LATHE OPERATOR - 03/02/2025 1:00 PM EDT Images from the original note were not included. [facility] TELE-HEALTH VISIT PROGRESS NOTE This is a virtual visit using [email or web address] video visit. It required patient-provider interaction for themedical decision making as documented below. I have communicated my name and active licensure. The patient's identity and physical location wereverified at the time of this visit. Either the patient or their legal tour sales representative has been informed of the [...] which included preparing to see the patient, uhgi-wi-huyt patient care, completing clinical documentation, obtaining and/or reviewing separately obtained history, performing a medically appropriate examination, counseling and educating the pat ient/family/caregiver, ordering medications, tests, or procedures, communicating with other HCPs (not separately reported), independently interpreting results (not separately reported), communicatingresults to the patient/family/caregiver, and care coordination (not separately reported). Heather Moy APRN.VARIETY LATHE OPERATOR Certified Nurse Practitioner cc: Erik Pineda MD - [facility] HPI: Kourtney Novak is a pleasant [...] resection. No residual mass or pathologic enhancement. Nub Card Tender: PSCB Transcribe Date/Time: Feb 21 2025 11:17A [...] the tumor with antibodies to SSTR2a and CT was performed on block A1. The tumor [...] 2025 10:13 AM Gross examination performed at [facility], [address] [place] [address] Clinical History Pre-op diagnosis: Intracranial meningioma (HCC) [D32.0] Preop testing [Z01.818] Performing Lab Diagnostic interpretation performed at: [facility], [address] [place] [address], [address] [address] CLIA# [id number] Professional System Administrator: Charan Ryan MD Disclaimer Laboratory Developed Test (LDT) Disclaimer: Performance characteristics of immunohistochemical, immunofluorescent, and chromogenic in-situ hybridization tests have been determined by the performing laboratory within [facility]'s [facility] Pathology and Laboratory Medicine Department ([facility], [facility], [facility], [facility], [facility], [facility], or [facility]) in a manner consistent with CLIA requirements. One or more of these tests may not have been cleared or approved by the FDA. [facility] is regulated under CLIA as qualified to perform high- complexity testing. These tests are used for clinical purposes. These should not be regarded asinvestigational or for research. Positive and negative controls stain appropriately. KPS: 90 documented in this encounterMarymount Hospital06-19-2025 NoteHNO ID: [id number] Author: HEATHER MOY APRN.CNP Service: ? Author Type: Nurse Practitioner Type: Progress Notes Filed: 03/02/2025 13:22 Note Text: [facility] TELE-HEALTH VISIT PROGRESS NOTE This is a virtual visit using [email or web address] video visit. It required patient-provider interaction for the medical decision making as documented below. I have communicated my name and active licensure. The patient's identity and physical location were verified at the time of this visit. Either the patient or their legal tour sales representative has been informed of the [...] which included preparing to see the patient, uchs-xs-loli patient care, completing clinical documentation, obtaining and/or reviewing separately obtained history, performing a medically appropriate examination, counseling and educating the patient/family/caregiver, ordering medications, tests, or procedures, communicating with other HCPs (not separately reported), independently interpreting results (not separately reported), communicating results to the patient/family/caregiver, and care coordination (not separately reported). Heather Moy APRN.[facility] Certified Nurse Practitioner cc: Erik Pineda MD - [facility] HPI: Kourtney Novak is a pleasant [...] Face symmetric with smile (more content not included)...[facility]06-16-2025 Telephone encounter Note* Telephone Encounter - eZinab Wood MD - 02/27/2025 2:51 PM EDT [...] EVERY DAY Authorizing Provider: ZEINAB WOOD MD [facility]06-16-2025 Miscellaneous Notes* Telephone Encounter - Zeinab [...] Days Visit Type Date Time Department [facility] 06/22/2025 2:20 PM [facility] Last [...] BLOOD COUNT [SQCBC] 3/4 Every 3 months 0110/10/24 02/14/25 Auth. provider: Zeinab Wood MD Assoc. [...] [SQCBC] 01/13/25 04/14/25 01/13/25 Auth. provider: Erik iPneda MD Assoc. diagnoses: Intracranial meningioma (HCC), Preop testing HCG, QUALITATIVE, URINE [SQUHCG] 01/13/25 04/14/25 01/13/25 Auth. provider: Erik Pineda MD Assoc. diagnoses: Intracranial meningioma (HCC), Preop testing documented in this encounterMarymount Hospital06-13-2025 Telephone encounter Note * Telephone Encounter [...] 365 Days Visit Type Date Time Department [facility] 06/22/2025 2:20 PM [facility] Last Ophthalmology Check for Plaquenil (Hydroxychloroquine) [...] SGPT [SQALT] 3/4 Every 3 months 09/06/25 09/09/2402/14/25 Auth. provider: Zeinab Wood MD Assoc. diagnoses: [...] Assoc. diagnoses: Intracranial meningioma (HCC), Preop testing [facility]06-12-2025 Telephone encounter Note* Telephone Encounter - [...] Reviewed med list and sent patient a kiwi666 message for alternating Ibuprofen and Tylenol for headache/pain as needed Confirmed postop appointments Patient was made aware to reach out for questions/ concerns/updates. Mario Alberto Phillips RN, Meter Tester Polyphase T [facility]06-12-2025 Telephone encounter Note* Telephone Encounter - Mario Alberto Phillips RN - 02/23/2025 11:24 AM EDT General Call Caller : Pt Contact Reason for Call : Pt has question regards oxycodone meds. Patient requesting return call ? Yes [facility]06-12-2025 Miscellaneous Notes* Telephone Encounter - Mario [...] Reviewed med list and sent patient a SyncroPhi Systemshart message for alternating Ibuprofen and Tylenol for headache/pain as needed Confirmed postop appointments Patient was made aware to reach out for questions/ concerns/updates. Mario Alberto Phillips RN, Meter Tester Polyphase * Telephone Encounter - Mario Alberto Phillips [...] return call ? Yes documented in this encounterMarymount Hospital06-12-2025 Telephone encounter Note * Telephone Encounter - Kaci Maya - 02/23/2025 9:46 AM EDT General Call Caller : Pt Contact Reason for Call : Pt has question regards oxycodone meds. Patient requesting return call ? Yes [facility]06-11-2025 NoteHNO ID: [id number] Author: DAYANNA CLEMENTE, Mookie Service: Pharmacy Author Type: Plant Operations Engineer Type: Plan of Care Filed: 02/22/2025 12:08 Note Text: PHARMACY BEDSIDE DELIVERY SERVICE Patient Name: Kourtney Novak The marked outpatient medications were Filled at: [facility] and delivered to the patient's [...] Dayanna Clemente PAGER: February 22, 2025 10:56 [facility]06-11-2025 NoteHNO ID: [id number] Author: DAYANNA CLEMENTE ? Service: Pharmacy Author Type: Plant Operations Engineer Type: Plan of Care Filed: 02/22/2025 10:56 Note Text: Insurance investigation completed Patient has active prescription insurance: Yes - Patient's insurance is in-network with [facility] Insurance loaded into Victoria: Yes Test claim was completed to verify insurance is active: Successful Any questions, please reach out to your medication access lead.[facility]06-10-2025 NoteHNO ID: [id number] Author: HERSON OZUNA RN Service: Nursing Author Type: Registered Nurse Type: Progress Notes Filed: 02/21/2025 20:22 Note Text: At 16:15 PM, Received report from [facility] [place]. At 17:00 PM, Patient transferred to the nursing division.[facility]06-10-2025 NoteHNO ID: [id number] Author: JOVANNY CHRISTENSEN RN Service: Care Management Author Type: Registered Nurse Type: Care Mgt Initial Assessment Filed: 02/21/2025 15:16 Note Text: CARE MANAGEMENT: ASSESSMENT AND DISCHARGE PLAN SERVICE DATE: February 21, 2025 SERVICE TIME: 3:14 PM PCP: Sammie Gonzalez MD Primary Contact: Extended Emergency Contact Information Primary Emergency Contact: Christiano Saini Address: [address] [place] Relation: Son Secondary Emergency Contact: Laith Saini Address: [address] [place] Relation: Son Admission Status: Inpatient Insurance Provider: [facility] MEDICARE [facility] Discharge Planning requested by: Per Department Practice Potential Transition Plans Home Advance Directives Current Advance Directive: None Tasley of Choice Explained: Tasley of Choice Given: No Reason Not Given: [...] Novak DATE: February 21, 2025 TIME: 3:14 [facility]06-10-2025 NoteHNO ID: [id number] Author: GLORIA PEÑALOZA PA-C Service: Neurosurgery Author Type: Physician Business Director Type: Progress Notes Filed: 02/21/2025 12:40 Note Text: SERVICE DATE: 02/21/2025 SERVICE TIME: 8:19 AM NEUROSURGERY SKULL BASE INPATIENT PROGRESS NOTE [place] [phone] for questions/concerns about this patient from 3PM [...] Non-tender NEUROLOGY: Motor: UE BICEPS TRICEPS DELTS Steel Box Toe Inserter HI R 5/5 5/5 5/5 5/5 5/5 [...] 124/80 126/69 Pulse: 89 92 91 Resp: 24 22 16 Temp: 36.4 ?C (97.6 ?F) TempSrc: Oral SpO2: 100% 98% Weight: Height: Intake AND Output Intake/Output Summary (Last 24 hours) at 02/21/2025 1225 Last data filed at 02/21/2025 1100 Gross per 24 hour Intake 5640 ml Output 8585 ml Net -2945 ml Drains: Lines, Drains, and Airways Line Duration Peripheral 02/20/25 1142 Left Forearm 18 Gauge 1 day Peripheral 02/20/25 1245 [facility] Short Right Hand 18 Gauge <1 day Drain Duration Indwelling Urinary Catheter 02/20/25 1301 [facility] Nieves 16 Fr <1 day LABS: Na: Recent Labs 02/21/25 0437 02/20/25 1143 NA 138 137 1. Out of bed and ambulating: No Needs PT or OT Evaluation: No 2. Central line present? No 3. Continued need for urinary catheter? D/C Urinary Catheter 4. Nutrition: PO- Yes. 5. Restraints No. 6. 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 Assessment AND Plan Active Hospital Problems as [...] treating with decadron 8bid (SSI, PPI) with half-way taper plan off over 1 week At risk for seizures 02/21/2025 - Pre (more content not included)...[facility]06-10-2025 NoteHNO ID: [id number] Author: ERIK PINEDA MD Service: Neurosurgery Author [...] Erik Pineda MD Date: 02/21/2025 Time: 9:02 [facility]06-09-2025 NoteHNO ID: [id number] Author: TWYLA COOLEY MD Service: Neurosurgery Author Type: Resident Type: Progress Notes Filed: 02/20/2025 16:51 Note Text: Neurosurgery Post-op Check Note Subjective: POC Objective: EXAM: Awakening from anesthesia Following commands PERRL, EOMI FS, TM, facial sensation intact No drift RUE: 5/5 LUE: 5/5 RLE: 5/5 LLE: 5/5 Sensation intact globally Incision c/d/I: closed w/ demarcus A/P: 49 yo female, PMH of fibromyalgia, COPD, MRAEK, HLD, GERD, hypothyroidism, DM, anxiety, obesity, inflammatory [...] Pineda Signature: Twyla Cooley MD PGY4, Neurosurgery [facility] On-call pager: [phone] [facility]06-09-2025 NoteHNO ID: [id number] Author: PAULINO RAMACHANDRAN DO Service: ? Author [...] February 20, 2025 TIME: 2:16 PM CSN: [id number]. [facility]06-[facility]-2025 NoteHNO ID: [id number] Author: CLARISA GARZA MD Service: ? Author [...] Successful intubation technique: video laryngoscopy Devices used: [employer] System Endotracheal tube insertion site: oral Blade: Cora [...] February 20, 2025 TIME: 2:00 PM CSN: [id number]. Francis Hospital06-06-2025 Telephone encounter Note* Telephone Encounter - Mario Alberto Phillips RN - 02/17/2025 3:53 PM EDT Spoke with the patient - we discusses signing the consent after she checks in for her surgery on Thursday02/20/25. [facility]06-06-2025 Miscellaneous Notes* Telephone Encounter - Mario Alberto Phillips RN - 02/17/2025 3:53 PM EDT Spoke with the patient - we discusses signing the consent after she checks in for her surgery on Thursday02/20/25. documented in this encounterMarymount Hospital06-06-2025 Telephone encounter Note * Telephone Encounter - Mario Alberto Phillips RN - 02/17/2025 3:49 PM EDT Called the patient for pre-op instructions. Questions pertaining to hospital stay and after hospital discharge instructions were addressed. Shewas made aware to touch base after she gets discharged home for review of hospital discharge instructions and confirming postop follow up appts. Mario Alberto Phillips RN, Meter Tester Polyphase [facility]06-06-2025 Miscellaneous Notes* Telephone Encounter - Mario Alberto Phillips RN - 02/17/2025 3:49 PM EDT Called the patient for pre-op instructions. Questions pertaining to hospital stay and after hospital discharge instructions were addressed. Shewas made aware to touch base after she gets discharged home for review of hospital discharge instructions and confirming postop follow up appts. Mario Alberto Phillips RN, Meter Tester Polyphase documented in this encounterMarymount Hospital06-04-2025 History of Present illness Narrative* Erik Pineda MD - 02/15/2025 2:30 PM EDT SECTION OF SKULL BASE SURGERY MINIMALLY INVASIVE CRANIAL BASE & PITUITARY SURGERY PROGRAM [facility], [facility] TELEMEDICINE FOLLOW-UP VISIT This is a virtual visit. It required patient-provider interaction for the medical decision making as documented below. Kourtney Novak has consented for this telemedicine encounter. I have communicated my name and active licensure. The patient's identity and physical location were verified at the time of this visit. Either the patient or their legal tour sales representative has been informed of the [...] week postoperatively. - Consent form sent via [email or web address], including consent for blood transfusion if necessary. - Patient understands and agrees with the treatment plan. I spent a total of 30 minutes on the date of the service which included preparing to see the patient, ufma-ml-yjfw patient care, completing clinical documentation, performing a [...] OF EXAM: Feb 14 2025 10:37AM LN [id number] - MRI BRAIN WO/W IVCON / PROCEDURE [...] tissue mass extending into the of the rib puller or parapharyngeal spaces. The soft tissue planes of the, retropharyngeal, and prevertebral spaces are maintained. The visualized parotid glands are normal in appearance. Nasopharynx/Oropharynx: The nasopharynx and oropharynx are normal in appearance. 12/28/24 OPTH Exam ( see scanned) documented in this encounterMarymount Hospital06-04-2025 NoteHNO ID: [id number] Author: ERIK PINEDA MD Service: ? Author Type: Physician Type: Progress Notes Filed: 02/15/2025 14:59 Note Text: SECTION OF SKULL BASE SURGERY MINIMALLY INVASIVE CRANIAL BASE AND PITUITARY SURGERY PROGRAM [facility] AND [facility] [place], [facility] TELEMEDICINE FOLLOW-UP VISIT This is a virtual visit. It required patient-provider interaction for the medical decision making as documented below. Kourtney Novak has consented for this telemedicine encounter. I have communicated my name and active licensure. The patient's identity and physical location were verified at the time of this visit. Either the patient or their legal tour sales representative has been informed of the [...] week postoperatively. - Consent form sent via [email or web address], including consent for blood transfusion if necessary. - Patient understands and agrees with the treatment plan. I spent a total of 30 minutes on the date of the service which included preparing to see the patient, [id number] patient care, completing clinical documentation, performing a [...] daily. No current facility-administered (more content not included)...[facility]06-04-2025 Telephone encounter Note* Telephone Encounter - Barbara Rosenthal LPN - 02/15/2025 8:21 AM EDT I called and spoke with patient. Relayed below message; denies questions at this time. Will go to [facility]. Barbara Rosenthal LPN February 15, 2025 8:22 AM [facility]06-04-2025 Miscellaneous Notes* Telephone Encounter - Barbara Rosenthal LPN - 02/15/2025 8:21 AM EDT I called and spoke with patient. Relayed below message; denies questions at this time. Will go to [facility]. Barbara Rosenthal LPN February 15, 2025 8:22 AM * Telephone Encounter - Mehul Martin APRN.CNP - 02/15/2025 8:09 AM EDT Please call patient. Lab did not draw Conabo, A1C, or BMP. Please have her go to closest [facility] lab tohave them drawn. She can go to [facility] cancer urania in [place] if that is best for her thank you. Thank you, Mehul Martin APRN.JOSSIE documented in this encounterMarymount Hospital06-04-2025 Telephone encounter Note * Telephone Encounter - Mehul Martin APRN.JOSSIE - 02/15/2025 8:09 AM EDT Please call patient. Lab did not draw Conabo, A1C, or BMP. Please have her go to [facility] lab tohave them drawn. She can go to [facility] cancer urania in [place] if that is best for her thank you. Thank you, Mehul Martin APRN.VARIETY LATHE OPERATOR [facility]06-03-2025 History of Present illness Narrative* Jace [...] PATIENT PRESENTS WITH AN IMPLANTABLE OR ATTACHED JEWELRY ESTIMATOR: No RADIOLOGY DEPARTMENT: MR; Exam(s) Completed: Head: Routine Brain Localization PERIPHERAL IV DATA: Site assessment: Clean,Dry and Intact, Site disposition Discontinued SIGNED BY: RT Alma(Lc) February 14, 2025 9:16 AM documented in this encounterMarymount Hospital06-03-2025 NoteHNO ID: [id number] Author: JACE LAINEZ RT (R) Service: ? Author Type: Technologist Type: Progress [...] PATIENT PRESENTS WITH AN IMPLANTABLE OR ATTACHED JEWELRY ESTIMATOR: No RADIOLOGY DEPARTMENT: MR; Exam(s) Completed: Head: Routine Brain Localization PERIPHERAL IV DATA: Site assessment: Clean,Dry and Intact, Site disposition Discontinued SIGNED BY: TITO Marquez) February 14, 2025 9:16 [facility]06-03-2025 History and physical note* Mehul Martin APRN.VARIETY LATHE OPERATOR - 02/14/2025 7:40 AM EDT HISTORY AND [...] [facility] rheumatology COPD (chronic obstructive pulmonary disease) ([facility]) Assessment: Stable with nebulizer treatments Denies any SOB Denies any Home oxygen use Lungs clear on exam SpO2 in office today 96% Monitored by PCP MAREK (obstructive sleep apnea) Assessment: Does not use CPAP Mixed hyperlipidemia Assessment: Compliant with Statin GERD (gastroesophageal reflux disease) Assessment: Controlled with dexilant Hypothyroidism Assessment: Controlled with levothyroxine Diabetes mellitus ([facility]) Assessment: Complaint with oral medications [...] of breath with the above physical activity. [id number] Score: Age: <65 Sex: female CHF history: No Hypertension history: No Stroke/TIA/thromboembolism history: No Vascular disease history: No Diabetes history: Yes [id number] Score: 2 ARISCAT Score: Age: <=50 Preoperative [...] Immunization Dates Current Care Gaps Covid-19 Vaccine () Overdue since 05/15/2024 01/24/2021 Imm Admin: COVID-19 original vaccine, age 12+ yr, monovalent (PFIZER- BIONTECH - PURPLE TOP) 01/02/2021 Imm Admin: COVID-19 original vaccine, age 12+ yr, monovalent (PFIZER- BIONTECH - PURPLE TOP) REVIEW OF SYSTEMS: PAIN ASSESSMENT: General: No weight loss, malaise or fevers. Neuro: See HPI +Fibromyalgia Respiratory: Negative for Asthma, Dyspnea, Home O2 +COPD +MAREK Cardiovascular: Negative for Recent IL, Angina, Chest Pain, PVD, DVT/PE +HLD GI: Negative for Nausea, Vomiting, Abdominal pain +GERD : Negative for dysuria, incontinence, hematuria, and hesitancy CONGRESSIONAL ASSISTANT: Negative for abnormal vaginal bleeding, abnormal vaginal [...] 386 QTC Calculation (Bazett) 436 Calculated P Munford 36 Calculated R Munford 47 Calculated T Munford 47 Impression NORMAL SINUS RHYTHM NORMAL ECG Instructions Given to Patient: Instructions located in the after visit summary. Patient given verbal and written preop instructions and voices comprehension and compliance. SIGNATURE: Mehul Martin APRN.CNP PATIENT NAME: Kourtney Novak DATE: 02/14/2025 TIME: 7:58 AM [facility]06-03-2025 History and physical note* Mehul Martin APRN.JOSSIE - 02/14/2025 7:40 AM EDT HISTORY AND [...] [facility] rheumatology COPD (chronic obstructive pulmonary disease) ([facility]) Assessment: Stable with nebulizer treatments Denies any SOB Denies any Home oxygen use Lungs clear on exam SpO2 in office today 96% Monitored by PCP MAREK (obstructive sleep apnea) Assessment: Does not use CPAP Mixed hyperlipidemia Assessment: Compliant with Statin GERD (gastroesophageal reflux disease) Assessment: Controlled with dexilant Hypothyroidism Assessment: Controlled with levothyroxine Diabetes mellitus ([facility]) Assessment: Complaint with oral medications [...] of breath with the above physical activity. [id number] Score: Age: <65 Sex: female CHF history: No Hypertension history: No Stroke/TIA/thromboembolism history: No Vascular disease history: No Diabetes history: Yes [id number] Score: 2 ARISCAT Score: Age: <=50 Preoperative [...] COVID-19 original vaccine, age 12+ yr, monovalent (Frograms- Aptara - PURPLE [facility]) 01/02/2021 Imm Admin: COVID-19 original vaccine, age 12+ yr, monovalent (Frograms- BIONTThe Beauty of [employer]ence Fashions - PURPLE TOP) REVIEW OF SYSTEMS: PAIN ASSESSMENT: General: No weight loss, malaise or fevers. Neuro: See HPI +Fibromyalgia Respiratory: Negative for Asthma, Dyspnea, Home O2 +COPD +MAREK Cardiovascular: Negative for Recent IL, Angina, Chest Pain, PVD, DVT/PE +HLD GI: Negative for Nausea, Vomiting, Abdominal pain +GERD : Negative for dysuria, incontinence, hematuria, and hesitancy CONGRESSIONAL ASSISTANT: Negative for abnormal vaginal bleeding, abnormal vaginal [...] 386 QTC Calculation (Bazett) 436 Calculated P Munford 36 Calculated R Munford 47 Calculated T Munford 47 Impression NORMAL SINUS RHYTHM NORMAL ECG Instructions Given to Patient: Instructions located in the after visit summary. Patient given verbal and written preop instructions and voices comprehension and compliance. SIGNATURE: Mehul Martin APRN.CNP PATIENT NAME: Kourtney Novak DATE: 02/14/2025 TIME: 7:58 AM documented in this encounterMarymount Hospital06-02-2025 Instructions* Patient Instructions* Mehul Martin APRN.CNP - 02/13/2025 11:26 AM EDT PATIENT PREOPERATIVE INSTRUCTIONS You Surgeon has scheduled you for your procedure at this surgery center: [facility] [place] Scheduling Office: [phone] --[address] [place] [address]. Please read below carefully for your personalized [...] SURGERY If you are currently using a bgyz-xwb-hryz injectable or oral medication for diabetes or [...] Procedures: - YOU MUST HAVE A RESPONSIBLE ASSEMBLER INSTALLER GENERAL TAKE YOU HOME. A PLACEMENT ASSISTANT OR SENIOR GOVERNMENT PROGRAM ANALYST CANNOT BE MADE A RESPONSIBLE ASSEMBLER INSTALLER GENERAL. - We recommend that a responsible person [...] call the Thursday before. Your surgeon s museum service scheduler will tell you what time to call the office. - If you have not reached the departmental museum service scheduler by 5 P.M., call [phone] after 5 P.M. the day before your surgery. Please be aware that emergency situations arise, which may delay or change your surgical time. If this happens, we will notify you as soon as possible and regret any inconvenience. If you already have an Advance Directive, please fax a copy to [phone] or email to for it to be [...] into your chart that day. Mehul Martin APRN.CNP documented in this encounterMarymount Hospital05-30-2025 Radiology Diagnostic study noteSELECT [facility] [place] [address] [place], [place] [id number] Ultrasound Report Signed Patient: Kourtney Novak MR#: [id number] : 1975 Acct:[id number] Age/Sex: 49 / F ADM Date: 5 Loc: Room: Type: [facility] Attending Dr: Sammie Gonzalez MD Ordering [...] Gray M.D. 02/10/2025 4:44 PM Dictation Location: [place] [address] Tech: Vani Baker Transcribed By: [facility] 02/10/25 1644 Dictated By: George Gray DO 02/10/25 1643 Signed By: 02/10/25 1644 [facility]05-15-2025 Telephone encounter Note* Telephone Encounter - [...] WEEK THEN STOP Pharmacy Name: [facility]-15[facility] Miscellaneous Notes* Telephone Encounter - Gifty [...] Pharmacy Name: [facility] documented in this encounterMarymount Hospital04-25-2025 NoteHNO ID: [id number] Author: RACHELE FENTON APRN.JOSSIE Service: ? Author [...] visit. Either the patient or their legal tour sales representative has been informed of the [...] 15 mg tablet simvastatin (more content not included)...[facility]04-24-2025 NoteHNO ID: [id number] Author: LA NENA WATERMAN LPN Service: ? Author Type: LICENSED NURSE Type: Progress Notes Filed: 01/05/2025 12:51 Note Text: Eye exam for Plaquenil toxicity received from [facility]. Exam date was 12/20/2024. Exam shows no signs of Plaquenil toxicity. Forms sent for scanning.[facility]04-17-2025 Telephone encounter Note* Telephone Encounter - Gifty Martinez - 12/29/2024 8:19 AM EDT Physician: Eliceo Call from pharmacy requesting refill. Please E-Scribe Last OV: 02/05/2024 with Eliceo Future OV: 01/06/2025 with Eliceo Requested Prescriptions Pending Prescriptions Disp Refills methocarbamol (ROBAXIN) 500 mg tablet [Pharmacy Med Name: METHOCARBAMOL 500 MG TABLET] 45 tablet 2 Sig: TAKE 1 TABLET BY MOUTH TWICE A DAY NEEDED Pharmacy Name: [facility]04-17-2025 Miscellaneous Notes* Telephone Encounter - Gifty Martinez - 12/29/2024 8:19 AM EDT Physician: Eliceo Call from pharmacy requesting refill. Please E-Scribe Last OV: 02/05/2024 with Eliceo Future OV: 01/06/2025 with Eliceo Requested Prescriptions Pending Prescriptions Disp Refills methocarbamol (ROBAXIN) 500 mg tablet [Pharmacy Med Name: METHOCARBAMOL 500 MG TABLET] 45 tablet 2 Sig: TAKE 1 TABLET BY MOUTH TWICE A DAY NEEDED Pharmacy Name: [facility] documented in this encounterMarymount Hospital04-16-2025 NoteHNO ID: [id number] Author: ZEINAB WOOD MD Service: ? Author [...] extremities. GI: Bowel sound (more content not included)...[facility] 12-28-2024 History of Present illness Narrative* Zeinab [...] No Swollen Glands: No documented in this encounterMarymount Hospital04-15-2025 Evaluation note* Diagnosis Onset Date Resolution Status Admit Date Osteochondrosis of lunate of right wrist acute December 27, 2024 12:51pm Right wrist pain acute December 272024 12:51pm Osteochondrosis of lunate of right wrist acute February 01, 2025 1 :57pm Right wrist pain acute January 1:57pm [facility] Work Phone: 1(824) 505-544604-15-2025 Evaluation note* Diagnosis Onset Date Resolution Status Admit Date Osteochondrosis of lunate of right wrist acute December 27, 2024 12:51pm Right wrist pain acute December 272024 12:51pm Osteochondrosis of lunate of right wrist acute February 01, 2025 1 :57pm Right wrist pain acute January 1:57pm Osteochondrosis of lunate of right wrist acute March 22, 2025 3 :55pm Right wrist pain acute March 3:55pm [facility] Work Phone: 1(698) 986-332703-24-2025 Telephone encounter Note* Telephone Encounter - Mario [...] out for questions/concerns/updates. Mario Alberto Phillips RN, Meter Tester Polyphase [facility]03-24-2025 Miscellaneous Notes* Telephone Encounter - Mario [...] out for questions/concerns/updates. Mario Alberto Phillips RN, Meter Tester Polyphase * Telephone Encounter - Mario Alberto Phillips RN - 12/05/2024 10:04 AM EDT Left a detailed voice message for the patient requesting a call back to discuss her plan of care & scheduling surgery. Contact info provided. documented in this encounterMarymount Hospital03-24-2025 Telephone encounter Note * Telephone Encounter - Mario Alberto Phillips RN - 12/05/2024 10:04 AM EDT Left a detailed voice message for the patient requesting a call back to discuss her plan of care & scheduling surgery. Contact info provided. [facility]02-20-2025 Evaluation note* Diagnosis Onset Date Resolution Status Admit Date Bursitis of left shoulder acute November 03, 2024 9:12am Osteochondrosis of lunate of right wrist acute December 27, 2024 12:51pm Right wrist pain acute December 272024 12:51pm [facility] Work Phone: 1(672) 260-805301-27-2025 Telephone encounter Note* Telephone Encounter - Susy Escamilla LPN - 10/10/2024 4:59 PM EST Faxed new order with updated diagnosis code . sent to [phone]. [facility]01-27-2025 Miscellaneous Notes* Telephone Encounter - Susy Escamilla LPN - 10/10/2024 4:59 PM EST Faxed new order with updated diagnosis code . sent to [phone]. * Telephone Encounter - Susy Escamilla LPN - 10/10/2024 3:27 PM EST Received fax from [facility]. States that diagnosis code M19.9 ( inflammatory arthritis ) [place] [address] regarding CBC test. They needs a different order to be placed with another diagnosis code. Please fax to Jimbo Whitten at [phone]. Notice sent to scanning . Please route to [facility] nurse for follow up documented in this encounterMarymount Hospital01-27-2025 Telephone encounter Note * Telephone Encounter [...] equal 90mg po qd Zeinab Wood MD [facility]01-27-2025 Miscellaneous Notes* Telephone Encounter - Zeinab [...] Zeinab Wood MD * Telephone Encounter - WatermanLa Nena LPN - 10/10/2024 2:50 PM EST Most [...] Days Visit Type Date Time Department [facility] 12/28/2024 9:20 AM [facility] Last [...] diagnoses: Inflammatory arthritis COMPLETE BLOOD COUNT [SQCBC] / Every 3 months 09/06/25 09/09/24 Auth. provider: Zeinab Wood MD Assoc. diagnoses: Inflammatory arthritis SEDIMENTATION RATE, WESTERGREN [SQWSR] 12/16 Every 3 months 09/06/25 09/09/24 Auth. provider: Zeinab Wood MD Assoc. diagnoses: Inflammatory arthritis C-REACTIVE PROTEIN [SQCRP] / Every 3 months 09/06/25 09/09/24 Auth. provider: Zeinab Wood MD Assoc. diagnoses: Inflammatory arthritis Open Future (Single Instance) Lab Orders None documented in this encounterMarymount Hospital01-27-2025 Telephone encounter Note * Telephone Encounter - Susy Escamilla LPN - 10/10/2024 3:27 PM EST Received fax from [facility]. States that diagnosis code M19.9 ( inflammatory arthritis ) does not pass medical necessity for the 86407 regarding CBC test. They needs a different order to be placed with another diagnosis code. Please fax to Jimbo Whitten at [phone]. Notice sent to scanning . Please route to [facility] nurse for follow up [facility]01-27-2025 Telephone encounter Note* Telephone Encounter - [...] 365 Days Visit Type Date Time Department [facility] 12/28/2024 9:20 AM [facility] Last Ophthalmology Check for Plaquenil (Hydroxychloroquine) [...] Open Future (Single Instance) Lab Orders None [facility]01-14-2025 Evaluation note* Diagnosis Onset Date Resolution Status Admit Date Osteochondrosis of lunate of right wrist acute September 27 2:48pm Right wrist pain acute September 27, 2024 2:48pm Bursitis of left shoulder acute November 03, 2024 9:12am [facility] Work Phone: 1(113) 645-138601-07-2025 Telephone encounter Note* Telephone Encounter - Susy Escamilla LPN - 09/20/2024 5:15 PM EST Lab results received from [facility] . Copy sent to scan, copy sent to provider folder for review. . [facility]01-07-2025 Miscellaneous Notes* Telephone Encounter - Susy Escamilla LPN - 09/20/2024 5:15 PM EST Lab results received from [facility] . Copy sent to scan, copy sent to provider folder for review. . documented in this encounterMarymount Hospital01-02-2025 Telephone encounter Note * Telephone Encounter - Susy Escamilla LPN - 09/15/2024 3:42 PM EST Lab orders faxed to [phone]. Patient updated via [employer] [facility]01-02-2025 Miscellaneous Notes* Telephone Encounter - Susy Escamilla LPN - 09/15/2024 3:42 PM EST Lab orders faxed to [phone]. Patient updated via [employer]gorithmic[employer] * Telephone Encounter - Zeinab Wood MD - 09/15/2024 2:04 PM EST Please send lab orders to where patient would like. [facility] call patient to discuss. Zeinab Wood MD documented in this encounterMarymount Hospital01-02-2025 Telephone encounter Note * Telephone Encounter - Zeinab Wood MD - 09/15/2024 2:04 PM EST Please send lab orders to where patient would like. [facility] call patient to discuss. Zeinab Wood MD [facility]12-27-2024 Telephone encounter Note* Telephone Encounter - [...] EVERY DAY Authorizing Provider: ZEINAB WOOD MD [facility]12-27-2024 Telephone encounter Note* Telephone Encounter - [...] EVERY DAY Authorizing Provider: ZEINAB WOOD MD [facility]12-27-2024 Miscellaneous Notes* Telephone Encounter - Zeinab [...] advise if labs are appropriate. Route to [facility] Nurse in order to follow up with faxing Lab orders to [facility] [phone] . * Telephone Encounter - Alisha Paniagua [...] [facility] 12/28/2024 9:20 AM [facility] Last [...] Instance) Lab Orders None documented in this encounterMarymount Hospital12-24-2024 Telephone encounter Note * Telephone Encounter - Susy Escamilla LPN - 09/06/2024 11:11 AM EST No current labs ordered . Please advise if labs are appropriate. Route to [facility] Nurse in order to follow up with faxing Lab orders to [facility] [phone] . [facility]12-19-2024 Telephone encounter Note* Telephone Encounter - Alisha Paniagua RN - 09/01/2024 5:10 PM EST Please monitor for receipt of labs. No labs completed presently. [facility]12-18-2024 Telephone encounter Note* Telephone Encounter - Zeinab Wood MD - 08/31/2024 4:25 PM EST She needs labs before I can give her refill. Labs in epic. Zeinab Wood MD [facility]12-16-2024 Telephone encounter Note* Telephone Encounter - Tory Thomas LPN - 08/29/2024 11:22 AM EST Most recent Rheumatology visit: 05/30/2024 (with Zeinab Wood) Last Bone Density on file: None on file Rheumatology Care Team: None on file Recent Office Visits - This Specialty 05/30/2024 Inflammatory arthritis Rheumatology Zeinba Wood MD 09/28/2023 Inflammatory arthritis Rheumatology Zeinab Wood MD 09/29/2022 Inflammatory arthritis Rheumatology Zeinab Wood MD Upcoming Rheumatology Appointments - Next 365 Days Visit Type Date Time Department [facility] 12/28/2024 9:20 AM [facility] Last [...] Open Future (Single Instance) Lab Orders None [facility]10-30-2024 History of Present illness Narrative* Estevan Polanco NP - 07/13/2024 5:30 PM EDT Images from [...] [] Dental visit in past 12 months [facility] health [facility] Additional Comments: pt has not [...] 20 tablet; Refill: 0 documented in this encounterSaint Luke's [facility] Hospital[facility]Barry [id number] NoteHNO ID: [id number] Author: ZEINAB WOOD MD Service: ? Author [...] recent and remote event (more content not included)...[facility]09-16-2024 History of Present illness Narrative* Zeinab Wood [...] No Swollen Glands: No documented in this encounterMarymount Hospital09-12-2024 Telephone encounter Note * Telephone Encounter - Eun Stanford APRN.VARIETY LATHE OPERATOR - 05/26/2024 10:59 AM EDT The following approved medication requests have been transmitted electronically. Requested Prescriptions Signed Prescriptions Disp Refills methocarbamol (ROBAXIN) 500 mg tablet 45 tablet 2 Sig: Take 1 tablet by mouth two times a day as needed. Authorizing Provider: EUN STANFORD APRN.CNP [facility]09-12-2024 Miscellaneous Notes* Telephone Encounter - Eun [...] Pharmacy Name: [facility] documented in this encounterMarymount Hospital09-12-2024 Telephone encounter Note * Telephone Encounter - Tala [facility] - 05/26/2024 10:14 AM EDT Physician: Eliceo Call from patient requesting refill. Please E-Scribe Last office visit 02/05/24 with Juan Luisparisamarie virtual Next office visit N/A Patient Comment: [...] as needed. Pharmacy Name: [facility]07-12-2024 Telephone encounter Note* Telephone Encounter - Zeinab Wood MD - 03/25/2024 12:32 PM EDT The following approved medication requests have been transmitted electronically. Requested Prescriptions Pending Prescriptions Disp Refills predniSONE (DELTASONE) 5 mg tablet [Pharmacy Med Name: prednisone 5 mg tablet] 60 tablet 3 Sig: TAKE 1 TO 2 TABLETS BY MOUTH EVERY DAY Zeinab Wood MD [facility]07-12-2024 Miscellaneous Notes* Telephone Encounter - Zeinab Wood MD - 03/25/2024 12:32 PM EDT The following approved medication requests have been transmitted electronically. Requested Prescriptions Pending Prescriptions Disp Refills predniSONE (DELTASONE) 5 mg tablet [Pharmacy Med Name: prednisone 5 mg tablet] 60 tablet 3 Sig: TAKE 1 TO 2 TABLETS BY MOUTH EVERY DAY Zeinab Wood MD * Telephone Encounter - Susy Escamilla [...] 365 Days Visit Type Date Time Department [facility] 05/30[facility]2024 9:40 AM [facility] ([facility]), Preop testing TYPE AND SCREEN,30 DAY [[id number]] 02/03/24 05/04/24 02/03/24 Auth. provider: Erik Pineda MD Assoc. diagnoses: Intracranial meningioma (HCC), Preop testing documented in this encounterMarymount Hospital07-12-2024 Telephone encounter Note * Telephone Encounter [...] Visit Type Date Time Department [facility] 05/30/2024 9:40 AM [facility] [...] (HCC), Preop testing TYPE AND SCREEN,30 DAY [[id number]] 02/03/24 05/04/24 02/03/24 Auth. provider: Erik Pineda MD Assoc. diagnoses: Intracranial meningioma (HCC), Preop testing [facility]07-10-2024 Telephone encounter Note* Telephone Encounter - Emma Vargas - 03/23/2024 2:05 PM EDT Patient last seen 02/05/2024. [facility]07-10-2024 Miscellaneous Notes* Telephone Encounter - Emma Vargas - 03/23/2024 2:05 PM EDT Patient last seen 02/05/2024. documented in this encounterMarymount Hospital06-25-2024 Telephone encounter Note * Telephone Encounter - Mario Alberto Phillips RN - 03/08/2024 2:39 PM EDT ADDENDUM: March 08, 2024 2:39 PM Distance Health Visit on 02/02/2024 including the details for the patient's surgery was faxed to Moira DONOVAN ( Julio [facility]) . Mario Alberto Phillips RN, Meter Tester Polyphase [facility]06-25-2024 Miscellaneous Notes* Telephone Encounter - Mario Alberto Phillips RN - 03/08/2024 2:39 PM EDT ADDENDUM: March 08, 2024 2:39 PM Distance Health Visit on 02/02/2024 including the details for the patient's surgery was faxed to Moira DONOVAN ( [facility]) . Mario Alberto Phillips RN, Meter Tester Polyphase * Telephone Encounter - Mario Alberto Phillips RN - 03/08/2024 2:17 PM EDT Spoke with nurse Pizarro. We discussed that the patient's epidural steroid injection on 03/14/2024 for her neck pain (C7/T1) isfar out from her surgery for the craniotomy with Dr Erik Pineda (04/04/24). Mario Alberto Phillips RN, Meter Tester Polyphase * Telephone Encounter - Brain Ruth - 03/08/2024 1:46 PM EDT General Call Caller : Moira harrison at [facility] Contact Reason for Call : Nurse would like to confirm that pt is allowed to receive steroid injection priorto surgery-80mg of kenalog Patient requesting return call ? Yes documented in this encounterMarymount Hospital06-25-2024 Telephone encounter Note * Telephone Encounter - Mario Alberto Phillips RN - 03/08/2024 2:17 PM EDT Spoke with nurse Pizarro. We discussed that the patient's epidural steroid injection on 03/14/2024 for her neck pain (C7/T1) isfar out from her surgery for the craniotomy with Dr Erik Pineda (04/04/24). Mario Alberto Phillips RN, Meter Tester Polyphase [facility]06-25-2024 Telephone encounter Note* Telephone Encounter - Brain Ruth - 03/08/2024 1:46 PM EDT General Call Caller : Moira harrison at [facility] Contact Reason for Call : Nurse would like to confirm that pt is allowed to receive steroid injection priorto surgery-80mg of kenalog Patient requesting return call ? Yes [facility]05-29-2024 Telephone encounter Note* Telephone Encounter - [place] Gifty Rea - 02/10/2024 3:12 PM EDT Images from the original note were not included. Prior Authorization for Medications Requested by ([email or web address], Pharmacy, Patient Call, Fax) : [facility] Name: [facility] Phone # : [phone] Name of Medication : Robaxin Dose : 500 mg Tablet If renewal, auth date expiration: NA Prescribing Provider: Eliceo Last OV: 02/05/2024 with Hamdan Insurance Provider : Medicare / [employer]. Is insurance card scanned in, including Rx info? Medicare card scanned - no RX information Insurance Phone : CoverMyMeds [place]: NA E-PA? Yes [facility]05-29-2024 Miscellaneous Notes* Telephone Encounter - [place] Gifty Rea - 02/10/2024 3:12 PM EDT Images from the original note were not included. Prior Authorization for Medications Requested by ([email or web address], Pharmacy, Patient Call, Fax) : [facility] Name: [facility] Phone # : [phone] Name of Medication : Robaxin Dose : 500 mg Tablet If renewal, auth date expiration: NA Prescribing Provider: Eliceo Last OV: 02/05/2024 with Hamdan Insurance Provider : Medicare / [employer]. Is insurance card scanned in, including Rx info? Medicare card scanned - no RX information Insurance Phone : CoverMyMeds [place]: NA E-PA? Yes documented in this encounterMarymount Hospital05-24-2024 History of Present illness Narrative* Rachele Fenton APRN.CNP - 02/05/2024 7:00 AM EDT Images from [...] visit. Either the patient or their legal tour sales representative has been informed of the [...] these with the patient: yes Rachele Fenton APRN.VARIETY LATHE OPERATOR HEADACHE SCORES: 06/19/2023 02/01/2024 Headache Questions ID [...] soft tissue component identified in the orbit. Nub Card Tender: PSCB Transcribe Date/Time: Jan 31 2024 3:33P [...] articulation, and clear,coherent, and relevant. Short and half-way memory, cognition and general fund of knowledge [...] 30 minutes Rachele Fenton APRN.CNP Headache Section [facility] February 05, 2024 documented in this encounterMarymount Hospital05-21-2024 History of Present illness Narrative* Alexandria Bartholomew MD - 02/02/2024 7:36 PM EDT Images from the original note were not included. SECTION OF SKULL BASE SURGERY MINIMALLY INVASIVE CRANIAL BASE & PITUITARY SURGERY PROGRAM [facility], [facility] CC: Patient Care Team: Sammie Gonzalez MD [...] proceed with surgical resection as planned in that her tumor has shown growth since [...] which included preparing to see the patient, [id number] patient care, completing clinical documentation, performing a [...] sphenoid wing without significant change since 05/06/2023. Nub Card Tender[facility] Transcribe Date/Time: Jan 31 2024 5:10P Dictated by : WESTLEY IYER MD This examination was interpreted and the report reviewed and electronically signed by: WESTLEY IYER MD on Jan 31 2024 5:28PM EST Results-Findings * * *Final Report* * * DATE OF EXAM: Jan 29 2024 1:56PM [facility] 0319 - MRI SKULL BASE WO/W [...] tissue mass extending into the of the rib puller or parapharyngeal spaces. The soft tissue planes of the, retropharyngeal, and prevertebral spaces are maintained. The visualized parotid glands are normal in appearance. Nasopharynx/Oropharynx: The nasopharynx and oropharynx are normal in appearance. Result History documented in this encounterMarymount Hospital05-21-2024 Telephone encounter Note * Telephone Encounter - Mario Alberto Phillips RN - 02/02/2024 10:23 AM EDT Called the patient confirming virtual appointment today at [address] Alexandria Bartholomew ( Skull base fellow from Dr Pineda team). [facility]05-21-2024 Miscellaneous Notes* Telephone Encounter - Mario Alberto Phillips RN - 02/02/2024 10:23 AM EDT Called the patient confirming virtual appointment today at [address] Alexandria Bartholomew ( Skull base fellow from Dr Pineda team). documented in this encounterMarymount Hospital05-20-2024 Telephone encounter Note * Telephone Encounter - Jumana Zapien RN - 02/01/2024 10:39 AM EDT Pharmacy requesting refill via Mychart. Last OV: 06/26/2023 Future OV: 02/05/2024 with Rachele Fenton APRN.VARIETY LATHE OPERATOR Last prescribed: 06/26/2023 Requested Prescriptions Pending Prescriptions Disp Refills tiZANidine (ZANAFLEX) 4 mg tablet [Pharmacy Med Name: tizanidine 4 mg tablet] 60 tablet 3 Sig: take 1 tablet by mouth every 8 hours as needed [facility]05-20-2024 Miscellaneous Notes* Telephone Encounter - Jumana Zapien RN - 02/01/2024 10:39 AM EDT Pharmacy requesting refill via Mychart. Last OV: 06/26/2023 Future OV: 02/05/2024 with Rachele Fenton APRN.VARIETY LATHE OPERATOR Last prescribed: 06/26/2023 Requested Prescriptions Pending Prescriptions Disp Refills tiZANidine (ZANAFLEX) 4 mg tablet [Pharmacy Med Name: tizanidine 4 mg tablet] 60 tablet 3 Sig: take 1 tablet by mouth every 8 hours as needed documented in this encounterMarymount Hospital05-17-2024 NoteHNO ID: [id number] Author: KOFI LA[place] CT Service: Radiology Author [...] PATIENT PRESENTS WITH AN IMPLANTABLE OR ATTACHED JEWELRY ESTIMATOR: No RADIOLOGY DEPARTMENT: CT; Exam(s) Completed: Brain STERO PERIPHERAL IV DATA: Not applicable SIGNED BY: KAYLEEN Sharma January 29, 2024 12:53 [facility]05-17-2024 NoteHNO ID: [id number] Author: AILYN NEUMANN RT(R) Service: ? Author [...] PATIENT PRESENTS WITH AN IMPLANTABLE OR ATTACHED JEWELRY ESTIMATOR: No ALLERGIES: Reviewed and unchanged CONTRAST ALLERGY: NO. EXAM: MRI - CONTRAST TYPE: GROUP II PERIPHERAL IV DATA: Ambulatory: A peripheral IV was started in the Left antecubital site with a Angio cath: 22 gauge. RADIOLOGY DEPARTMENT: MR; Exam(s) Completed: Head: Routine Brain SIGNATURE: Ailyn Neumann RDMS, RVT- Sheila ([facility]) PATIENT NAME: Kourtney Novak DATE: January 29, 2024 TIME: 1:06 [facility]05-17-2024 History of Present illness Narrative* Kofi [...] PATIENT PRESENTS WITH AN IMPLANTABLE OR ATTACHED JEWELRY ESTIMATOR: No RADIOLOGY DEPARTMENT: CT; Exam(s) Completed: Brain STERO PERIPHERAL IV DATA: Not applicable SIGNED BY: KAYLEEN Sharma January 29, 2024 12:53 PM documented in this encounterMarymount Hospital05-17-2024 History of Present illness Narrative* Ailyn [...] PATIENT PRESENTS WITH AN IMPLANTABLE OR ATTACHED JEWELRY ESTIMATOR: No ALLERGIES: Reviewed and unchanged CONTRAST ALLERGY: NO. EXAM: MRI - CONTRAST TYPE: GROUP II PERIPHERAL IV DATA: Ambulatory: A peripheral IV was started in the Left antecubital site with a Angio cath: 22 gauge. RADIOLOGY DEPARTMENT: MR; Exam(s) Completed: Head: Routine Brain SIGNATURE: Ailyn Neumann RDMS, RVT- Eda ([facility]) PATIENT NAME: Kourtney Novak DATE: January 29, 2024 TIME: 1:06 PM documented in this encounterMarymount Hospital05-15-2024 Telephone encounter Note * Telephone Encounter - Zeinab Wood MD - 01/27/2024 3:29 PM EDT The following approved medication requests have been transmitted electronically. Requested Prescriptions Pending Prescriptions Disp Refills etodolac (LODINE) 400 mg tablet 60 tablet 3 Sig: One tab po bid prn Zeinab Wood MD [facility]05-15-2024 Miscellaneous Notes* Telephone Encounter - Zeinab [...] 365 Days Visit Type Date Time Department [facility] 05/30/2024 9:40 AM [facility] Instance) Lab Orders None documented in this encounterMarymount Hospital05-15-2024 Telephone encounter Note * Telephone Encounter [...] Days Visit Type Date Time Department [facility] 05/30/2024 9:40 AM [facility] Open Future (Single Instance) Lab Orders None [facility]05-07-2024 Telephone encounter Note* Telephone Encounter - [...] discussion and consent. Both appointments were confirmed. [facility]05-07-2024 Miscellaneous Notes* Telephone Encounter - Mario Alberto Phillips RN - 01/19/2024 10:39 AM EDT Spoke with Kourtney morales , after discussing surgery planning with Dr [...] home. Mario Alberto Phillips RN, Meter Tester Polyphase documented in this encounterMarymount Hospital05-07-2024 Telephone encounter Note * Telephone Encounter - Mario Alberto Phillips RN - 01/19/2024 9:30 AM EDT Spoke with Ms Kourtney Novak today confirming surgery on 04/11/[address] Erik Pineda. Right middle sphenoid wing Preoperative appointments will be scheduled ~ 2 weeks prior to surgery date at a [facility] facility closer to the patient's home. Mario Alberto Phillips RN, Meter Tester Polyphase [facility]04-26-2024 Telephone encounter Note* Telephone Encounter - Rohit Khan MA - 01/08/2024 3:14 PM EDT Lab results received from [facility]. Placed in dr Wood folder for review,copy sent to scanning. [facility]04-26-2024 Miscellaneous Notes* Telephone Encounter - Rohit Khan MA - 01/08/2024 3:14 PM EDT Lab results received from [facility]. Placed in dr Wood folder for review,copy sent to scanning. documented in this encounterMarymount Hospital04-23-2024 Telephone encounter Note * Telephone Encounter - Mario Alberto Phillips RN - 01/05/2024 1:04 PM EDT Spoke with Ms. Kourtney Novak today confirming surgery on Thu03/28/[address] Erik Pineda. Preoperative appointments to be scheduled at a [facility] facility near the patient's home. [facility]04-23-2024 Miscellaneous Notes* Telephone Encounter - Mario Alberto Phillips RN - 01/05/2024 1:04 PM EDT Spoke with Ms. Kourtney Novak today confirming surgery on Thu03/28/[address] Erik Pineda. Preoperative appointments to be scheduled at a [facility] facility near the patient's home. documented in this encounterMarymount Hospital04-22-2024 Telephone encounter Note * Telephone Encounter - Michelle Thompson MA - 01/04/2024 4:17 PM EDT Orders faxed. Confirmation received. [facility]04-22-2024 Miscellaneous Notes* Telephone Encounter - Michelle Thompson MA - 01/04/2024 4:17 PM EDT Orders faxed. Confirmation received. * Telephone Encounter - Michelle Thompson MA - 01/04/2024 2:43 PM EDT Printed labs. Sent msg to pt to clarify which [facility] to fax to. Labs/Fax sheet in Michelle'slime green folder. Please fax once clarification is received. * Telephone Encounter - Zeinab Wood MD - 01/04/2024 2:03 PM EDT Labs are ordered, please print and fax per patient request. Zeinab Wood MD * Telephone Encounter - Verenice Ga, RN - 01/04/2024 1:45 PM EDT Patient calling Needs 01/01/24 Lab Orders in [facility] please (pended) Also requesting to FAX 01/01/24 Lab Orders to [facility] She will send their FAX # in My Chart documented in this encounterMarymount Hospital04-22-2024 Telephone encounter Note * Telephone Encounter - Michelle Thompson MA - 01/04/2024 2:43 PM EDT Printed labs. Sent MC msg to pt to clarify which [facility] to fax to. Labs/Fax sheet in Michelle'kathyime green folder. Please fax once clarification is received. [facility]04-22-2024 Telephone encounter Note* Telephone Encounter - Zeinab Wood MD - 01/04/2024 2:03 PM EDT Labs are ordered, please print and fax per patient request. Zeinab Wood MD [facility]04-22-2024 Telephone encounter Note* Telephone Encounter - Verenice Ga RN - 01/04/2024 1:45 PM EDT Patient calling Needs 01/01/24 Lab Orders in [facility] please (pended) Also requesting to FAX 01/01/24 Lab Orders to [facility] She will send their FAX # in My Chart [facility]03-20-2024 Miscellaneous Notes* Telephone Encounter - Tory [...] if patient had any question please call [phone]. My Chart Message also sent. * Telephone [...] 365 Days Visit Type Date Time Department [facility] 05/30/2024 9:40 AM [facility] Instance) Lab Orders None documented in this encounterMarymount Hospital02-29-2024 Miscellaneous Notes* Telephone Encounter - Zeinab Wood MD - 11/12/2023 3:03 PM EST The following approved medication requests have been transmitted electronically. Requested Prescriptions Pending Prescriptions Disp Refills predniSONE (DELTASONE) 5 mg tablet 60 tablet 3 Si-2 tabs po qd eZinab Wood MD * Telephone Encounter - Tory [...] [facility] 05/30/2024 9:40 AM [facility] [...] Instance) Lab Orders None documented in this encounterMarymount Hospital02-28-2024 Miscellaneous Notes* Telephone Encounter - Zeinab [...] [facility] 05/30/2024 9:40 AM [facility] [...] Instance) Lab Orders None documented in this encounterMarymount Hospital02-28-2024 Miscellaneous Notes* Telephone Encounter - Mario Alberto Phillips RN - 11/11/2023 11:37 AM EST Spoke with Ms.Mandie Alex Novak today following up on the [email or web address] message from 10/08/2023. She sent a message about having symptoms of blurry vision and was advised to schedule an appointment with ophthalmology. Today the patient stated that the blurry vision was 1 incident and that she did not have any visionchanges since. She was made aware to send an update or call for any questions or concerns. Mario Alberto Phillips RN, Meter Tester Polyphase documented in this encounterMarymount Hospital02-27-2024 Miscellaneous Notes* Telephone Encounter - Nathaly [...] [facility] 05/30/2024 9:40 AM [facility] [...] Instance) Lab Orders None documented in this encounterMarymount Hospital10-23-2023 Miscellaneous Notes* Telephone Encounter - Mario [...] appointments. Mario Alberto Phillips RN, Meter Tester Polyphase * Telephone Encounter - Justine Pagan - 07/02/2023 3:04 PM EDT General Call Caller : Pt Contact Reason for Call : Pt would like to go forward w scheduling surgery. However, she would like surgeryto be scheduled in March 2024, pt would like to discuss further Patient requesting return call ? Yes documented in this encounterMarymount Hospital10-23-2023 Miscellaneous Notes* Telephone Encounter - Mario Alberto Phillips RN - 07/06/2023 3:21 PM EDT Spoke with . Kourtney Novak. We discussed that it is so far out to schedule surgery in March 2024. We discussed option of possible surgery dates. She will be contacted during late December- January 2024 toconfirm the date of surgery and schedule the preoperative appointments. Mario Alberto Phillips RN, Meter Tester Polyphase documented in this encounterMarymount Hospital10-17-2023 Instructions* Patient Instructions* Heather Moy APRN.CNP - [...] (due back Apr 2024). documented in this encounterMarymount Hospital10-17-2023 Nurse Note* Yuly Do Ma - 06/30/2023 10:52 AM EDT Additional intake questions: Has the patient had fever, nausea, vomiting, diarrhea, constipation, fatigue for > 1 week? No Does the patient have a decreased appetite? No Does patient want to see a Supervisor Instrument Repair? No (yes to any of above refer patient to schedulers for dietitian appointment) ) Does patient have any new or increased numbness or tingling of extremities? No Is patient interested in fertility information? No Does patient need any prescription refills? No Does patient have an advanced directive in place? No, Patient referred to [facility] documented in this encounterMarymount Hospital10-17-2023 History of Present illness Narrative* Erik Pineda MD - 06/30/2023 10:49 AM EDT Images from the original note were not included. SECTION OF SKULL BASE SURGERY MINIMALLY INVASIVE CRANIAL BASE & PITUITARY SURGERY PROGRAM [facility] CC: Patient Care Team: Sammie Gonzalez MD as PCP - General (Family Medicine) Laron Lou DO - [facility] ASSESSMENT: In summary, Kourtney Novak is [...] and follow-up via virtual visit. Heather Moy APRN.VARIETY LATHE OPERATOR I have reviewed the progess note obtained [...] which included preparing to see the patient, [id number] patient care, completing clinical documentation, performing a [...] to the prior exam. documented in this encounterMarymount Hospital10-13-2023 Instructions* Patient Instructions* Fahad Corey MD [...] 26, 2023 5:39 PM documented in this encounterMarymount Hospital10-13-2023 History of Present illness Narrative* Fahad Corey MD - 06/26/2023 5:06 PM EDT HEADACHE MEDICINE NEW EVALUATION June 26, 2023 5:00 PM I have communicated my name and active licensure. The patient's identity and physical location wereverified at the time of this visit. Either the patient or their legal tour sales representative has been informed of the [...] 26, 2023 5:36 PM documented in this encounterMarymount Hospital08-30-2023 Miscellaneous Notes* Telephone Encounter - Moira Goodrich APRN.VARIETY LATHE OPERATOR - 05/13/2023 1:13 PM EDT Time Frame: Next available Provider: Carmine (possible [facility]) Referring: self Please instruct patient to hand carry/ upload images prior to appt Images also requested via Electronically Dx: Multiple meningiomas with interval growth Multiple meningiomas with interval growth since 2016. MRI done for dizziness. [facility] [place] [address] [place] [address] MRI Report Signed Patient: Kourtney Novak MR#: [id number] : 1975 Acct:[id number] Age/Sex: 47 / F ADM Date: 05/06/23 Loc: MR Room: Type: [facility] Attending Dr: Sammie Gonzalez MD Copies [...] frontal subcortical white matter. documented in this encounterMarymount Hospital07-31-2023 Miscellaneous Notes* Telephone Encounter - Zeinab [...] Days Visit Type Date Time Department [facility] 09/28/2023 3:00 PM [facility] Instance) Lab Orders None documented in this encounterMarymount Hospital07-31-2023 Miscellaneous Notes* Telephone Encounter - Zeinab [...] 365 Days Visit Type Date Time Department [facility] 09/28/2023 3:00 PM [facility] Instance) Lab Orders None documented in this encounterMarymount Hospital07-18-2023 Evaluation note* Encounter Date Diagnosis Assessment [...] in 3 weeks Mar, Other Obtain labs angela m Dr. Gonzalez regarding diabetes [facility] Other 06-26-2023 Miscellaneous Notes* Telephone Encounter - Tory Thomas LPN - 03/09/2023 11:55 AM EDT Refill to soon refilled 01/19/2023 30 capsules with 3 refilles documented in this encounterMarymount Hospital05-08-2023 Miscellaneous Notes* Telephone Encounter - Zeinab [...] [facility] 06/26/2023 10:40 AM [facility] [...] Instance) Lab Orders None documented in this encounterMarymount Hospital04-05-2023 Evaluation note* Encounter Date Diagnosis Assessment Notes Treatment Notes Treatment Clinical Notes Dec, Osteochondrosis of lunate of right wrist (ICD-10 - 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 May repeat ulnar wrist cortisone injection when needed. Patient instructed on the use of Voltaren Gel in the meantime Dec, Right wrist pain (ICD-10 - M25.531) Dec, Other specified postprocedural states (ICD-10 - Z98.890) [facility] Other 03-30-2023 Miscellaneous Notes* Addendum Note - [...] qd Zeinab Wood MD documented in this encounterMarymount Hospital01-16-2023 Miscellaneous Notes* Telephone Encounter - Zeinab [...] check out. Thank you. documented in this encounterMarymount Hospital01-16-2023 History of Present illness Narrative* Zeinab [...] MEDS/THERAPIES TRIED: Plaquenil bid - started on 6/21 Prednisone- great response Savella for FM Gabapentin [...] FM- agree with diagnosis Currently on savella calvin feels it is not helping Tried lyrica [...] No Swollen Glands: No documented in this encounterMarymount Hospital01-11-2023 Evaluation note* Encounter Date Diagnosis Assessment Notes Treatment Notes Treatment Clinical Notes Sep, Osteochondrosis of lunate of right wrist (ICD-10 - M92.211) Sep, Right wrist pain (ICD-10 - M25.531) Right ulnar wrist joint/TFCC injected with cortisone under sterile technique, patient tolerated well Sep, Other specified postprocedural states (ICD-10 - Z98.890) [facility] Other 11-22-2022 Evaluation note* Encounter Date Diagnosis Assessment Notes Treatment Notes Treatment Clinical Notes Jul, Osteochondrosis of lunate of right wrist (ICD-10 - 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 Decrease to 81 mg Aspirin once per day x 3 months then begin to wean off. Jul, Other specified postprocedural states (ICD-10 - Z98.890) [facility] Other 11-03-2022 Evaluation note* Encounter Date Diagnosis [...] pain of right shoulder (ICD-10 - M25.511) [facility] Other 10-12-2022 Evaluation note* Encounter Date Diagnosis [...] pain of left shoulder (ICD-10 - M25.512) [facility] Other 07-18-2022 Evaluation note* Encounter Date Diagnosis [...] pain of right shoulder (ICD-10 - M25.511) [facility] Other 05-16-2022 Evaluation note* Encounter Date Diagnosis [...] will order an MRI for futher review. [facility] Other 05-13-2022 Evaluation note* Encounter Date Diagnosis Assessment Notes Treatment Notes Treatment Clinical Notes January, Osteochondrosis of lunate of right wrist (ICD-10 - M92.211) January, Right wrist pain (ICD-10 - M25.531) Right ulnar wrist injected with cortisone under sterile technique, patient tolerated well January, Other specified postprocedural states (ICD-10 - Z98.890) [facility] Other 05-09-2022 Evaluation note* Encounter Date Diagnosis [...] oral prednisone as prescribed by Neha ANDERSON. [facility] Other 05-09-2022 History of Present illness Narrative* [...] -none Zeinab Wood MD documented in this encounterMarymount Hospital04-12-2022 Evaluation note* Encounter Date Diagnosis Assessment [...] Other specified postprocedural states (ICD-10 - Z98.890) [facility] Other 03-21-2022 Evaluation note* Encounter Date Diagnosis [...] pain of right shoulder (ICD-10 - M25.511) [facility] Other 03-09-2022 Evaluation note* Encounter Date Diagnosis Assessment Notes Treatment Notes Treatment Clinical Notes Nov, Osteochondrosis of lunate of right wrist (ICD-10 - M92.211) Patient instructed on gentle ROM exercises. Continue Aspirin. Prescription given for edema glove Nov, Other specified postprocedural states (ICD-10 - Z98.890) [facility] Other 01-25-2022 Evaluation note* Encounter Date Diagnosis Assessment Notes Treatment Notes Treatment Clinical Notes Sep, Osteochondrosis of lunate of right wrist (ICD-10 - M92.211) Patient will proceed with surgery on the right wrist. Risks and benefits of procedure explained to patient; patient verbalizes understanding. [facility] Other 12-15-2021 Evaluation note* Encounter Date Diagnosis Assessment Notes Treatment Notes Treatment Clinical Notes Aug, Osteochondrosis of lunate of right wrist (ICD-10 - M92.211) Right wrist injected with cortisone under sterile technique, patient tolerated well. Patient would like to proceed with surgical treatment in October [facility] Other 11-29-2021 Evaluation note* Encounter Date Diagnosis Assessment Notes Treatment Notes Treatment Clinical Notes Jul, Carpal tunnel syndrome of right wrist (ICD-10 - G56.01) [facility] Other 10-05-2021 Evaluation note* Encounter Date Diagnosis [...] brace as needed for pain and support [facility] Other 09-22-2021 Evaluation note* Encounter Date Diagnosis [...] of right supraspinatus tendon (ICD-10 - M75.101) [facility] Other 06-21-2021 NoteHNO ID: [id number] Author: Hu Blankenship Service: Radiology Author Type: Grinder Hand Type: Progress Notes Filed: 03/04/2021 1:11 PM [...] BY: Hu Blankenship March 04, 2021 1:10 [facility] note* Clinical Note Date No Information [facility] Work Phone: Discharge summary* Clinical Note Date No Information [facility] Work Phone: Evaluation note* Diagnosis Inflammatory arthritis- Primary Unspecified inflammatory polyarthropathy Myalgia Mylagia and myositis, unspecified [facility] InformationNort [facility] Other Evaluygedd noteNo assessment information available [facility] Work Phone: evalusqwgx note* Diagnosis Inflammatory arthritis- Primary Unspecified inflammatory polyarthropathy Myalgia Mylagia and myositis, unspecified Fibromyalgia Mylagia and myositis, unspecified [facility]* Diagnosis Medication overuse headache- Primary Drug induced headache, not elsewhere classified Brain mass Unspecified condition of brain Meningioma (HCC) Benign neoplasm of cerebral meninges Chronic daily headache Headache [facility] Diagnosis Intracranial meningioma (HCC)- Primary Benign neoplasm of cerebral meninges documented in this encounter [facility] note* Diagnosis Onset Date Resolution Status Osteochondrosis of lunate of right wrist acute Right wrist pain acute [facility] Work Phone: evaluation note* Diagnosis 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) Benign neoplasm of cerebral meninges documented in this encounter [facility] note* Diagnosis Benign neoplasm of meninges (HCC) Benign neoplasm of cerebral meninges documented in this encounter [facility] note* Diagnosis Chronic daily headache Headache documented in this encounter [facility] note* Diagnosis Intracranial meningioma (HCC)- Primary Benign neoplasm of cerebral meninges documented in this encounter [facility] note* Diagnosis Meningioma (HCC)- Primary Benign neoplasm of cerebral meninges Chronic daily headache Headache Intracranial meningioma (HCC) Benign neoplasm of cerebral meninges Preop testing Preoperative examination, unspecified [facility]* Diagnosis Onset Date Resolution Status Osteochondrosis of lunate of right wrist acute Right wrist pain acute Acute pain of right shoulder acute Biceps tendonitis acute [facility] Work Phone: evaluation note* Diagnosis Onset Date Resolution Status Acute pain of right shoulder acute Biceps tendonitis acute Osteochondrosis of lunate of right wrist acute Right wrist pain acute [facility] Work Phone: evaluation note* Diagnosis Inflammatory arthritis- Primary Unspecified inflammatory polyarthropathy Fibromyalgia Mylagia and myositis, unspecified Medication monitoring encounter Encounter for therapeutic drug monitoring documented in this encounter [facility]* Diagnosis Tooth infection- Primary Acute apical periodontitis of pulpal origin documented in this encounter [facility] note* Diagnosis Inflammatory arthritis- Primary Unspecified inflammatory polyarthropathy documented in this encounter [facility] note* Diagnosis Onset Date Resolution Status Admit Date Osteochondrosis of lunate of right wrist acute September 27 2:48pm Right wrist pain acute September 27, 2024 2:48pm [facility] Work Phone: Evaluation note* Diagnosis Encounter for medication monitoring- Primary Encounter for therapeutic drug monitoring documented in this encounter [facility]* Diagnosis Fibromyalgia Mylagia and myositis, unspecified documented in this encounter [facility] note* Diagnosis Inflammatory arthritis- Primary Unspecified inflammatory polyarthropathy Fibromyalgia Mylagia and myositis, unspecified Encounter for medication monitoring Encounter for therapeutic drug monitoring documented in this encounter [facility]* Diagnosis Chronic daily headache Headache documented in this encounter [facility] note* Diagnosis Chronic daily headache Headache Intracranial meningioma (HCC) Benign neoplasm of cerebral meninges Preop testing Preoperative examination, unspecified documented in this encounter [facility] note* Diagnosis Pre-op evaluation- Primary Preoperative examination, [...] Preoperative examination, unspecified documented in this encounter [facility] note* Diagnosis Pre-op evaluation- Primary Preoperative examination, [...] Preoperative examination, unspecified documented in this encounter [facility] note* Diagnosis Pre-op evaluation- Primary Preoperative examination, [...] Fibromyalgia Assessment: Controlled with Cymbalta Monitored by [facility] documented in this encounter [facility]* Diagnosis Meningioma (HCC)- Primary Benign neoplasm [...] Unspecified inflammatory polyarthropathy documented in this encounter [facility]* Diagnosis Meningioma (HCC)- Primary Benign neoplasm [...] of cerebral meninges [facility] Diagnosis Meningioma (HCC)- Primary Benign [...] and myositis, unspecified [facility] Diagnosis Meningioma (HCC)- Primary Benign [...] following unspecified surgery [facility]* Diagnosis Meningioma (HCC)- Primary Benign neoplasm of cerebral meninges Intracranial meningioma (HCC) Benign neoplasm of cerebral meninges Preop testing Preoperative examination, unspecified Chronic daily headache Headache 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) COPD (chronic obstructive pulmonary disease) ([facility]) Chronic airway obstruction, not elsewhere classified Diabetes mellitus ([facility]) Type II or unspecified type [...] daily headache Headache [facility]* Diagnosis Meningioma (HCC)- Primary Benign neoplasm [...] Other postprocedural status [facility]* Diagnosis Meningioma (HCC)- Primary Benign neoplasm [...] (BMI) of 40.0 to 44.9 in adult ([facility]) Pre-op evaluation- Primary Preoperative examination, unspecified Anxiety Anxiety state, unspecified Chronic obstructive pulmonary disease, unspecified COPD type ([facility]) Depression, unspecified depression type Type [...] (BMI) of 40.0 to 44.9 in adult ([facility]) Inflammatory arthritis Unspecified inflammatory polyarthropathy Intracranial meningioma (HCC)- Primary Benign neoplasm of cerebral meninges Postprocedural state Other postprocedural status Dizziness and giddiness [facility]* Diagnosis Meningioma (HCC)- Primary Benign neoplasm of cerebral meninges Intracranial meningioma (HCC) Benign neoplasm of cerebral meninges Preop testing Preoperative examination, unspecified Chronic daily headache Headache Neoplasm causing mass effect and brain compression on adjacent structures ([facility]) COPD (chronic obstructive pulmonary disease) ([facility]) Chronic airway obstruction, not elsewhere classified Diabetes mellitus ([facility]) Type II or unspecified type [...] (BMI) of 40.0 to 44.9 in adult ([facility]) Pre-op evaluation- Primary Preoperative examination, unspecified Anxiety Anxiety state, unspecified Chronic obstructive pulmonary disease, unspecified COPD type ([facility]) Depression, unspecified depression type Type 2 diabetes mellitus without complication, without long-term current use of insulin ([facility]) Mixed hyperlipidemia Fibromyalgia Mylagia and myositis, unspecified Intracranial meningioma (HCC) Benign neoplasm of cerebral meninges Preop testing Preoperative examination, unspecified MAREK (obstructive sleep apnea) Obstructive sleep apnea (adult) (pediatric) Gastroesophageal reflux disease, unspecified whether esophagitis present Hypothyroidism, unspecified type Class 3 severe obesity due to excess calories with serious comorbidity and body mass index (BMI) of 40.0 to 44.9 in adult ([facility]) Inflammatory arthritis Unspecified inflammatory polyarthropathy Meningioma (HCC)- Primary Benign neoplasm of cerebral meninges Chronic daily headache Headache documented in this encounter [facility] note* Diagnosis Meningioma (HCC)- Primary Benign neoplasm of cerebral meninges Intracranial meningioma (HCC) Benign neoplasm of cerebral meninges Preop testing Preoperative examination, unspecified Chronic daily headache Headache Neoplasm causing mass effect and brain compression on adjacent structures ([facility]) COPD (chronic obstructive pulmonary disease) ([facility]) Chronic airway obstruction, not elsewhere classified Diabetes mellitus ([facility]) Type II or unspecified type [...] (BMI) of 40.0 to 44.9 in adult ([facility]) Pre-op evaluation- Primary Preoperative examination, unspecified Anxiety Anxiety state, unspecified Chronic obstructive pulmonary disease, unspecified COPD type ([facility]) Depression, unspecified depression type Type 2 diabetes mellitus without complication, without long-term current use of insulin ([facility]) Mixed hyperlipidemia Fibromyalgia Mylagia and myositis, unspecified Intracranial meningioma ([facility]) Benign neoplasm of cerebral meninges Preop testing Preoperative examination, unspecified MAREK (obstructive sleep apnea) Obstructive sleep apnea (adult) (pediatric) Gastroesophageal reflux disease, unspecified whether esophagitis present Hypothyroidism, unspecified type Class 3 severe obesity due to excess calories with serious comorbidity and body mass index (BMI) of 40.0 to 44.9 in adult ([facility]) Inflammatory arthritis Unspecified inflammatory polyarthropathy Chronic daily headache Headache documented in this encounter [facility] note* Diagnosis Fibromyalgia Unspecified myalgia and myositis [facility] Clinical Note Date No Information [facility] Work Phone: History general Narrative - Reported* Type Description Date Medical History GERD Medical History gastroparesis Medical History bipolar Medical History DM II Surgical History carpal tunnel Surgical History cystectomy-left breast Surgical History right neuroplasty, ulnar nerve at elbow 08/2020 Hospitalization History see above Hospitalization History COPD [facility] Other [facility] general Narrative - Reported* Type Description Date Medical History GERD Medical History gastroparesis Medical History bipolar Medical History DM II Medical History COPD Surgical History carpal tunnel Surgical History cystectomy-left breast Surgical History right neuroplasty, ulnar nerve at elbow 08/2020 Surgical History appendectomy 09/2021 Hospitalization History see above Hospitalization History COPD [facility] Other [facility] general Narrative - Reported* Type Description Date Medical History GERD Medical History gastroparesis Medical History bipolar Medical History DM II Medical History COPD Surgical History carpal tunnel Surgical History cystectomy-left breast Surgical History right neuroplasty, ulnar nerve at elbow 08/2020 Surgical History appendectomy 09/2021 Surgical History right wrist PIN/core decompress ion Hospitalization History see above Hospitalization History COPD [facility] Other [facility] general Narrative - Reported* Type Description Date Medical History GERD Medical History gastroparesis Medical History bipolar Medical History DM II Medical History COPD Surgical History carpal tunnel Surgical History cystectomy-left breast Surgical History right neuroplasty, ulnar nerve at elbow 08/2020 Surgical History appendectomy 09/2021 Surgical History right wrist PIN/core decompress ion Surgical History cubital tunnel Hospitalization History see above Hospitalization History COPD [facility] Other History of Past illness Narrative* Condition Effective Dates (start - stop) O utcome No Information [facility] Work Phone: History of Present illness Narrative* Encounter Date Complaint History Of Prese nt Illness No Information [facility] Work Phone: Instructions* Date Instruction Additional Infor mation No Information [facility] Work Phone: Progress note* Clinical Note Date No Information [facility] Work Phone: Reason for referral (narrative)No [facility] for [facility]: Reason for referral (narrative)* Reason For Referral No Information [facility] Work Phone: Reason for visit Narrative* MRI/CT (Routine) - Closed Specialty Diagnoses / Procedures Referred By Tati t Referred To Contact [facility] Diagnoses Intracranial meningioma (HCC) Preop testing Procedures MRI BRAIN WO/W IVCON MRI BRAIN BRAIN STEM W/O W/CONTRAST MATERIAL Erik Pineda MD [address] [place] [address] Phone: tel: fax: [place] [id number] Referral ID Status Reason Start Date Expiration Date V isits Requested Visits Authorized [id number] Closed Auto-Generate d Referral 02/10/2025 09/13/2025 1 1 [facility] systems Narrative - Reported* System Pos/Neg Findings No Information [facility] Work Phone: Summary Purpose Family History No Family History [...] Father Problem (finding) seizure disorder Advance Directives No Advanced Directives Records Found [...] 01pm m19.90 September 20, 2024 7: 06am Chief Complaint Admit [...] in left shoulder November 03, 2024 8:26am [employer] LT SHOULDER PAIN NX November 03 9:12am [...] in left shoulder November 03, 2024 8:26am [employer] LT SHOULDER PAIN NX November 03 9:12am d50.9 December 13, 2024 3:07 pm Chief Complaint Admit Date M25.512 - Pain in left shoulder November 03, 2024 8:26am [employer] LT SHOULDER PAIN NX November 03 9:12am [...] wrist pain February 01, 2025 1:57p m Chief Complaint Admit Date [...] wrist pain March 22, 2025 3:55p m Chief Complaint Admit Date 6-8 WEEKS March 22, 2025 3:55p m E78.5,R73.09,D64.9,E55.9,I10 Nica 2024 7:02am Reason for Visit Admit Date Osteochondrosis of lunate of right wrist March 22, 2025 3:55pm Right wrist pain March 22, 2025 3:55p m Additional Source Comments INFORMATION SOURCE (unrecogn ized section and content) DATE CREATED AUTHOR 03/10/2018 [facility] DATE CREATED AUTHOR AUTHOR'S ORGANIZ ATION 03/05/2021 [facility] DATE CREATED AUTHOR AUTHOR'S ORGANIZ ATION 10/13/2022 [facility] pital DATE CREATED AUTHOR AUTHOR'S ORGANIZ ATION 02/01/2024 [facility] DATE CREATED AUTHOR AUTHOR'S ORGANIZ ATION 04/13/2025 [facility] DATE CREATED AUTHOR AUTHOR'S ORGANIZ ATION 05/04/2025 [facility] DATE CREATED AUTHOR AUTHOR'S ORGANIZ ATION 05/25/2025 [facility] dical [facility] DATE CREATED AUTHOR AUTHOR'S ORGANIZ ATION 05/26/2025 [facility] DATE CREATED AUTHOR AUTHOR'S ORGANIZ ATION 05/28/2025 [facility] Source Comments (unrecognize d section and content) In the event this informatio n is protected by the Federal Confidentiality of Alcohol and Drug Abuse Patient Records regulations: The Federal rules restrict any use of the information to criminally investigate or prosecute any alcohol or drug abuse patient.[facility] the event this information is protected by the Federal Confidentiality of Alcohol and Drug Abuse Patient Records regulations: The Federal rules restrict any use of the information to criminally investigate or prosecute any alcohol or drug abuse patient.[facility] HospitalIn the event this information is protected by the Federal Confidentiality of Alcohol and Drug Abuse Patient Records regulations: The Federal rules restrict any use of the information to criminally investigate or prosecute any alcohol or drug abuse patient.[facility] HospitalIn the event this information is protected by the Federal Confidentiality of Alcohol and Drug Abuse Patient Records regulations: The Federal rules restrict any use of the information to criminally investigate or prosecute any alcohol or drug abuse patient.[facility] HospitalIn the event this information is protected by the Federal Confidentiality of Alcohol and Drug Abuse Patient Records regulations: The Federal rules restrict any use of the information to criminally investigate or prosecute any alcohol or drug abuse patient.[facility] HospitalIn the event this information is protected by the Federal Confidentiality of Alcohol and Drug Abuse Patient Records regulations: The Federal rules restrict any use of the information to criminally investigate or prosecute any alcohol or drug abuse patient.[facility] HospitalIn the event this information is protected by the Federal Confidentiality of Alcohol and Drug Abuse Patient Records regulations: The Federal rules restrict any use of the information to criminally investigate or prosecute any alcohol or drug abuse patient.[facility] HospitalIn the event this information is protected by the Federal Confidentiality of Alcohol and Drug Abuse Patient Records regulations: The Federal rules restrict any use of the information to criminally investigate or prosecute any alcohol or drug abuse patient.[facility] HospitalIn the event this information is protected by the Federal Confidentiality of Alcohol and Drug Abuse Patient Records regulations: The Federal rules restrict any use of the information to criminally investigate or prosecute any alcohol or drug abuse patient.[facility] HospitalIn the event this information is protected by the Federal Confidentiality of Alcohol and Drug Abuse Patient Records regulations: The Federal rules restrict any use of the information to criminally investigate or prosecute any alcohol or drug abuse patient.[facility] HospitalIn the event this information is protected by the Federal Confidentiality of Alcohol and Drug Abuse Patient Records regulations: The Federal rules restrict any use of the information to criminally investigate or prosecute any alcohol or drug abuse patient.[facility] HospitalIn the event this information is protected by the Federal Confidentiality of Alcohol and Drug Abuse Patient Records regulations: The Federal rules restrict any use of the information to criminally investigate or prosecute any alcohol or drug abuse patient.[facility] HospitalIn the event this information is protected by the Federal Confidentiality of Alcohol and Drug Abuse Patient Records regulations: The Federal rules restrict any use of the information to criminally investigate or prosecute any alcohol or drug abuse patient.[facility] HospitalIn the event this information is protected by the Federal Confidentiality of Alcohol and Drug Abuse Patient Records regulations: The Federal rules restrict any use of the information to criminally investigate or prosecute any alcohol or drug abuse patient.[facility] HospitalIn the event this information is protected by the Federal Confidentiality of Alcohol and Drug Abuse Patient Records regulations: The Federal rules restrict any use of the information to criminally investigate or prosecute any alcohol or drug abuse patient.[facility] HospitalIn the event this information is protected by the Federal Confidentiality of Alcohol and Drug Abuse Patient Records regulations: The Federal rules restrict any use of the information to criminally investigate or prosecute any alcohol or drug abuse patient.[facility] HospitalIn the event this information is protected by the Federal Confidentiality of Alcohol and Drug Abuse Patient Records regulations: The Federal rules restrict any use of the information to criminally investigate or prosecute any alcohol or drug abuse patient.[facility] HospitalIn the event this information is protected by the Federal Confidentiality of Alcohol and Drug Abuse Patient Records regulations: The Federal rules restrict any use of the information to criminally investigate or prosecute any alcohol or drug abuse patient.[facility] HospitalIn the event this information is protected by the Federal Confidentiality of Alcohol and Drug Abuse Patient Records regulations: The Federal rules restrict any use of the information to criminally investigate or prosecute any alcohol or drug abuse patient.[facility] HospitalIn the event this information is protected by the Federal Confidentiality of Alcohol and Drug Abuse Patient Records regulations: The Federal rules restrict any use of the information to criminally investigate or prosecute any alcohol or drug abuse patient.[facility] HospitalIn the event this information is protected by the Federal Confidentiality of Alcohol and Drug Abuse Patient Records regulations: The Federal rules restrict any use of the information to criminally investigate or prosecute any alcohol or drug abuse patient.[facility] HospitalIn the event this information is protected by the Federal Confidentiality of Alcohol and Drug Abuse Patient Records regulations: The Federal rules restrict any use of the information to criminally investigate or prosecute any alcohol or drug abuse patient.[facility] HospitalIn the event this information is protected by the Federal Confidentiality of Alcohol and Drug Abuse Patient Records regulations: The Federal rules restrict any use of the information to criminally investigate or prosecute any alcohol or drug abuse patient.[facility] HospitalIn the event this information is protected by the Federal Confidentiality of Alcohol and Drug Abuse Patient Records regulations: The Federal rules restrict any use of the information to criminally investigate or prosecute any alcohol or drug abuse patient.[facility] HospitalIn the event this information is protected by the Federal Confidentiality of Alcohol and Drug Abuse Patient Records regulations: The Federal rules restrict any use of the information to criminally investigate or prosecute any alcohol or drug abuse patient.[facility] HospitalIn the event this information is protected by the Federal Confidentiality of Alcohol and Drug Abuse Patient Records regulations: The Federal rules restrict any use of the information to criminally investigate or prosecute any alcohol or drug abuse patient.[facility] HospitalIn the event this information is protected by the Federal Confidentiality of Alcohol and Drug Abuse Patient Records regulations: The Federal rules restrict any use of the information to criminally investigate or prosecute any alcohol or drug abuse patient.[facility] HospitalIn the event this information is protected by the Federal Confidentiality of Alcohol and Drug Abuse Patient Records regulations: The Federal rules restrict any use of the information to criminally investigate or prosecute any alcohol or drug abuse patient.[facility] HospitalIn the event this information is protected by the Federal Confidentiality of Alcohol and Drug Abuse Patient Records regulations: The Federal rules restrict any use of the information to criminally investigate or prosecute any alcohol or drug abuse patient.[facility] HospitalIn the event this information is protected by the Federal Confidentiality of Alcohol and Drug Abuse Patient Records regulations: The Federal rules restrict any use of the information to criminally investigate or prosecute any alcohol or drug abuse patient.[facility] HospitalIn the event this information is protected by the Federal Confidentiality of Alcohol and Drug Abuse Patient Records regulations: The Federal rules restrict any use of the information to criminally investigate or prosecute any alcohol or drug abuse patient.[facility] HospitalIn the event this information is protected by the Federal Confidentiality of Alcohol and Drug Abuse Patient Records regulations: The Federal rules restrict any use of the information to criminally investigate or prosecute any alcohol or drug abuse patient.[facility] HospitalIn the event this information is protected by the Federal Confidentiality of Alcohol and Drug Abuse Patient Records regulations: The Federal rules restrict any use of the information to criminally investigate or prosecute any alcohol or drug abuse patient.[facility] HospitalIn the event this information is protected by the Federal Confidentiality of Alcohol and Drug Abuse Patient Records regulations: The Federal rules restrict any use of the information to criminally investigate or prosecute any alcohol or drug abuse patient.[facility] HospitalIn the event this information is protected by the Federal Confidentiality of Alcohol and Drug Abuse Patient Records regulations: The Federal rules restrict any use of the information to criminally investigate or prosecute any alcohol or drug abuse patient.[facility] HospitalIn the event this information is protected by the Federal Confidentiality of Alcohol and Drug Abuse Patient Records regulations: The Federal rules restrict any use of the information to criminally investigate or prosecute any alcohol or drug abuse patient.[facility] HospitalIn the event this information is protected by the Federal Confidentiality of Alcohol and Drug Abuse Patient Records regulations: The Federal rules restrict any use of the information to criminally investigate or prosecute any alcohol or drug abuse patient.[facility] HospitalIn the event this information is protected by the Federal Confidentiality of Alcohol and Drug Abuse Patient Records regulations: The Federal rules restrict any use of the information to criminally investigate or prosecute any alcohol or drug abuse patient.[facility] HospitalIn the event this information is protected by the Federal Confidentiality of Alcohol and Drug Abuse Patient Records regulations: The Federal rules restrict any use of the information to criminally investigate or prosecute any alcohol or drug abuse patient.[facility] HospitalIn the event this information is protected by the Federal Confidentiality of Alcohol and Drug Abuse Patient Records regulations: The Federal rules restrict any use of the information to criminally investigate or prosecute any alcohol or drug abuse patient.[facility] HospitalIn the event this information is protected by the Federal Confidentiality of Alcohol and Drug Abuse Patient Records regulations: The Federal rules restrict any use of the information to criminally investigate or prosecute any alcohol or drug abuse patient.[facility] HospitalIn the event this information is protected by the Federal Confidentiality of Alcohol and Drug Abuse Patient Records regulations: The Federal rules restrict any use of the information to criminally investigate or prosecute any alcohol or drug abuse patient.[facility] HospitalIn the event this information is protected by the Federal Confidentiality of Alcohol and Drug Abuse Patient Records regulations: The Federal rules restrict any use of the information to criminally investigate or prosecute any alcohol or drug abuse patient.[facility] HospitalIn the event this information is protected by the Federal Confidentiality of Alcohol and Drug Abuse Patient Records regulations: The Federal rules restrict any use of the information to criminally investigate or prosecute any alcohol or drug abuse patient.[facility] HospitalIn the event this information is protected by the Federal Confidentiality of Alcohol and Drug Abuse Patient Records regulations: The Federal rules restrict any use of the information to criminally investigate or prosecute any alcohol or drug abuse patient.[facility] HospitalIn the event this information is protected by the Federal Confidentiality of Alcohol and Drug Abuse Patient Records regulations: The Federal rules restrict any use of the information to criminally investigate or prosecute any alcohol or drug abuse patient.[facility] HospitalIn the event this information is protected by the Federal Confidentiality of Alcohol and Drug Abuse Patient Records regulations: The Federal rules restrict any use of the information to criminally investigate or prosecute any alcohol or drug abuse patient.[facility] HospitalIn the event this information is protected by the Federal Confidentiality of Alcohol and Drug Abuse Patient Records regulations: The Federal rules restrict any use of the information to criminally investigate or prosecute any alcohol or drug abuse patient.[facility] HospitalIn the event this information is protected by the Federal Confidentiality of Alcohol and Drug Abuse Patient Records regulations: The Federal rules restrict any use of the information to criminally investigate or prosecute any alcohol or drug abuse patient.[facility] HospitalIn the event this information is protected by the Federal Confidentiality of Alcohol and Drug Abuse Patient Records regulations: The Federal rules restrict any use of the information to criminally investigate or prosecute any alcohol or drug abuse patient.[facility] HospitalIn the event this information is protected by the Federal Confidentiality of Alcohol and Drug Abuse Patient Records regulations: The Federal rules restrict any use of the information to criminally investigate or prosecute any alcohol or drug abuse patient.[facility] HospitalIn the event this information is protected by the Federal Confidentiality of Alcohol and Drug Abuse Patient Records regulations: The Federal rules restrict any use of the information to criminally investigate or prosecute any alcohol or drug abuse patient.[facility] HospitalIn the event this information is protected by the Federal Confidentiality of Alcohol and Drug Abuse Patient Records regulations: The Federal rules restrict any use of the information to criminally investigate or prosecute any alcohol or drug abuse patient.[facility] HospitalIn the event this information is protected by the Federal Confidentiality of Alcohol and Drug Abuse Patient Records regulations: The Federal rules restrict any use of the information to criminally investigate or prosecute any alcohol or drug abuse patient.[facility] HospitalIn the event this information is protected by the Federal Confidentiality of Alcohol and Drug Abuse Patient Records regulations: The Federal rules restrict any use of the information to criminally investigate or prosecute any alcohol or drug abuse patient.[facility] HospitalIn the event this information is protected by the Federal Confidentiality of Alcohol and Drug Abuse Patient Records regulations: The Federal rules restrict any use of the information to criminally investigate or prosecute any alcohol or drug abuse patient.[facility] HospitalIn the event this information is protected by the Federal Confidentiality of Alcohol and Drug Abuse Patient Records regulations: The Federal rules restrict any use of the information to criminally investigate or prosecute any alcohol or drug abuse patient.[facility] HospitalIn the event this information is protected by the Federal Confidentiality of Alcohol and Drug Abuse Patient Records regulations: The Federal rules restrict any use of the information to criminally investigate or prosecute any alcohol or drug abuse patient.[facility] HospitalIn the event this information is protected by the Federal Confidentiality of Alcohol and Drug Abuse Patient Records regulations: The Federal rules restrict any use of the information to criminally investigate or prosecute any alcohol or drug abuse patient.[facility] HospitalIn the event this information is protected by the Federal Confidentiality of Alcohol and Drug Abuse Patient Records regulations: The Federal rules restrict any use of the information to criminally investigate or prosecute any alcohol or drug abuse patient.[facility] HospitalIn the event this information is protected by the Federal Confidentiality of Alcohol and Drug Abuse Patient Records regulations: The Federal rules restrict any use of the information to criminally investigate or prosecute any alcohol or drug abuse patient.[facility] HospitalIn the event this information is protected by the Federal Confidentiality of Alcohol and Drug Abuse Patient Records regulations: The Federal rules restrict any use of the information to criminally investigate or prosecute any alcohol or drug abuse patient.[facility] HospitalIn the event this information is protected by the Federal Confidentiality of Alcohol and Drug Abuse Patient Records regulations: The Federal rules restrict any use of the information to criminally investigate or prosecute any alcohol or drug abuse patient.[facility] HospitalIn the event this information is protected by the Federal Confidentiality of Alcohol and Drug Abuse Patient Records regulations: The Federal rules restrict any use of the information to criminally investigate or prosecute any alcohol or drug abuse patient.[facility] HospitalIn the event this information is protected by the Federal Confidentiality of Alcohol and Drug Abuse Patient Records regulations: The Federal rules restrict any use of the information to criminally investigate or prosecute any alcohol or drug abuse patient.[facility] HospitalIn the event this information is protected by the Federal Confidentiality of Alcohol and Drug Abuse Patient Records regulations: The Federal rules restrict any use of the information to criminally investigate or prosecute any alcohol or drug abuse patient.[facility] HospitalIn the event this information is protected by the Federal Confidentiality of Alcohol and Drug Abuse Patient Records regulations: The Federal rules restrict any use of the information to criminally investigate or prosecute any alcohol or drug abuse patient.[facility] Reason for Visit (unrecogniz ed section [...] 60-74 MINUTES Laron Lou DO, PhD [address] [place] [address] Referral ID Status Reason Start Date Expiration Date V isits Requested Visits Authorized [id number] Closed PCP Requested Referral 06/01/2023 05/31/2024 1 [...] GUIDANCE STEREOTACTIC LOCALIZATION Erik Pineda MD [address] [place] [address] Ct [facility] [place] [address] Referral ID Status Reason Start Date Expiration Date V isits Requested Visits Authorized [id number] Closed Auto-Generate d Referral 01/19/2024 02/17/2025 1 1 Specialty Diagnoses / Procedures Referred By Contac t Referred To Contact MR IMAGING Diagnoses Benign neoplasm of meninges (HCC) Procedures MRI SKULL BASE WO/W IVCON MRI BRAIN BRAIN STEM W/O W/CONTRAST MATERIAL Erik Pineda MD [address] [place] [address] Mr Imaging [place] [address] Referral ID Status Reason Start Date Expiration Date V isits Requested Visits Authorized [id number] Closed Auto-Generate d Referral 01/19/2024 02/17/2025 1 [...] 08/28/2024 Reason Comments Results Lab results from [facility] Reason Comments 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 Reason [...] FOR PERIOPERATIVE MEDICINE - PREOPERATIVE OPTIMIZATION OFFICE/OUTPATIENT FORMERLY [facility], [facility] MDM 60 MINUTES Erik Pineda MD [address] [place] [address] Phone: tel: fax: Referral ID Status Reason Start Date Expiration Date V isits Requested Visits Authorized [id number] Closed PCP Requested Referral 01/13/2025 01/13/2026 1 [...] Gonzalez MD Primary Care Provider, Attending Pr ovidbetty Active Rigger Relationship Specialty Start Date End Date Sammie Gonzalez MD [address] [place] [id number] Referring Family Practice 01/14/21 Team Status: Inactive Member Role Status Dates Sammie Gonzalez MD Primary Care Provider Active Elyssa Gomes MD Attending Provider Active Team Status: Inactive Member Role Status Dates Sammie Gonzalez MD Primary Care Provider Active Gunner Cummings DPM [place] Attending Provider Active Rigger Relationship Specialty Start Date End Date Sammie Gonzalez MD [address] [place] [id number] Referring Family Medicine 01/14/21 Rigger Relationship Specialty Start Date End Date Sammie Gonzalez MD [address] [facility] [place] [address] Referring Family Medicine 01/14/21 Rigger Relationship Specialty Start Date End Date Sammie Gonzalez MD Referring Family Medicine 01/14/21 Rigger Relationship Specialty Start Date End Date Sammie Gonzalez MD Referring Family Medicine 01/14/21 Rigger Relationship Specialty Start Date End Date Sammie Gonzalez MD Referring Family Medicine 01/14/21 Rigger Relationship Specialty Start Date End Date Sammie Gonzalez MD Referring Family Medicine 01/14/21 Rigger Relationship Specialty Start Date End Date Sammie Gonzalez MD Referring Family Medicine 01/14/21 Team Status: Inactive Member Role Status Dates Sammie Gonzalez MD Primary Care Provider Active Zeinab Mckinney ([facility]) , SEPTIC TANK SERVICE TECHNICIAN Attending Provider Active Rigger Relationship Specialty Start Date End Date Sammie Gonzalez MD [address] [facility] [place] [address] PCP - General Family Medicine 05/12/23 Sammie Gonzalez MD Referring Family Medicine 01/14/21 Sammie Gonzalez MD [address] [facility] [place] [address] Referring Family Medicine 05/12/23 Rigger Relationship Specialty Start Date End Date Sammie Gonzalez MD [address] [facility] [place] [address] PCP - General Family Medicine 05/12/23 Sammie Gonzalez MD Referring Family Medicine 01/14/21 Sammie Gonzalez MD [address] [facility] [place] [address] Referring Family Medicine 05/12/23 Rigger Relationship Specialty Start Date End Date Sammie Gonzalez MD [address] [facility] [place] [address] PCP - General Family Medicine 05/12/23 Sammie Gonzalez MD Referring Family Medicine 01/14/21 Sammie Gonzalez MD [address] [facility] [place] [address] Referring Family Medicine 05/12/23 Rigger Relationship Specialty Start Date End Date Sammie Gonzalez MD [address] [facility] [place] [address] PCP - General Family Medicine 05/12/23 Sammie Gonzalez MD Referring Family Medicine 01/14/21 Sammie Gonzalez MD [address] [facility] [place] [address] Referring Family Medicine 05/12/23 Rigger Relationship Specialty Start Date End Date Sammie Gonzalez MD [address] [facility] [place] [address] PCP - General Family Medicine 05/12/23 Sammie Gonzalez MD Referring Family Medicine 01/14/21 Sammie Gonzalez MD [address] [facility] [place] [address] Referring Family Medicine 05/12/23 Rigger Relationship Specialty Start Date End Date Sammie Gonzalez MD [address] [facility] [place] [address] PCP - General Family Medicine 05/12/23 Sammie Gonzalez MD Referring Family Medicine 01/14/21 Sammie Gonzalez MD [address] [facility] [place] [address] Referring Family Medicine 05/12/23 Rigger Relationship Specialty Start Date End Date Sammie Gonzalez MD [address] [facility] [place] [address] PCP - General Family Medicine 05/12/23 Sammie Gonzalez MD Referring Family Medicine 01/14/21 Sammie Gonzalez MD [address] [facility] [place] [address] Referring Family Medicine 05/12/23 Rigger Relationship Specialty Start Date End Date Sammie Gonzalez MD [address] [facility] [place] [address] PCP - General Family Medicine 05/12/23 Sammie Gonzalez MD Referring Family Medicine 01/14/21 Sammie Gonzalez MD [address] [place] [address] Referring Family Medicine 05/12/23 Rigger Relationship Specialty Start Date End Date Sammie Gonzalez MD [address] [place] [address] PCP - General Family Medicine 05/12/23 Sammie Gonzalez MD Referring Family Medicine 01/14/21 Sammie Gonzalez MD [address] [place] [address] Referring Family Medicine 05/12/23 Team Status: Inactive [...] January 08, 2024 End: January 08, 2024 Rigger Relationship Specialty Start Date End Date Sammie Gonzalez MD [address] [place] [address] PCP - General Family Medicine 05/12/23 Sammie Gonzalez MD Referring Family Medicine 01/14/21 Sammie Gonzalez MD [address] [facility] [place] [address] Referring Family Medicine 05/12/23 Rigger Relationship Specialty Start Date End Date Sammie Gonzalez MD [address] [facility] [place] [address] PCP - General Family Medicine 05/12/23 Sammie Gonzalez MD Referring Family Medicine 01/14/21 Sammie Gonzalez MD [address] [facility] [place] [address] Referring Family Medicine 05/12/23 Rigger Relationship Specialty Start Date End Date Samime Gonzalez MD [address] [facility] [place] [address] PCP - General Family Medicine 05/12/23 Sammie Gonzalez MD Referring Family Medicine 01/14/21 Sammie Gonzalez MD [address] [facility] [place] [address] Referring Family Medicine 05/12/23 Team Status: Inactive Member Role Status Dates Sammie Gonzalez MD Primary Care Provider Active Start: January 26, 2024 End: January 26, 2024 Beti Bowles , SOLAR INSTALLER TECHNICIAN-C Attending Provider Active Start: January 26, 2024 [...] March 04, 2024 End: March 04, 2024 Rigger Relationship Specialty Start Date End Date Sammie Gonzalez MD [address] [place] [address] PCP - General Family Medicine 05/12/23 Sammie Gonzalez MD Referring Family Medicine 01/14/21 Sammie Gonzalez MD [address] [place] [address] Referring Family Medicine 05/12/23 Rigger Relationship Specialty Start Date End Date Sammie Gonzalez MD [address] [place] [address] PCP - General Family Medicine 05/12/23 Sammie Gonzalez MD Referring Family Medicine 01/14/21 Sammie Gonzalez MD [address] [place] [address] Referring Family Medicine 05/12/23 Rigger Relationship Specialty Start Date End Date Sammie Gonzalez MD [address] [place] [address] PCP - General Family Medicine 05/12/23 Sammie Gonzalez MD Referring Family Medicine 01/14/21 Sammie Gonzalez MD [address] [facility] [place] [address] Referring Family Medicine 05/12/23 Team Status: Inactive Member Role Status Dates Sammie Gonzalez MD Primary Care Provide r, Attending Provider Active Start: May 12, 2024 End: May 12, 2024 Rigger Relationship Specialty Start Date End Date Sammie Gonzalez MD [address] [place] [address] PCP - General Family Medicine 05/12/23 Samime Gonzalez MD Referring Family Medicine 01/14/21 Sammie Gonzalez MD [address] [facility] [place] [address] Referring Family Medicine 05/12/23 Rigger Relationship Specialty Start Date End Date Sammie Gonzalez MD [address] [place] [address] PCP - General Family Medicine 05/12/23 Sammie Gonzalez MD Referring Family Medicine 01/14/21 Sammie Gonzalez MD [address] [place] [address] Referring Family Medicine 05/12/23 Team Status: Inactive [...] June 22, 2024 End: June 22, 2024 Rigger Relationship Specialty Start Date End Date Sammie Gonzalez MD [address] [place] [address] PCP - General Family Medicine 03/12/23 Rigger Relationship Specialty Start Date End Date Sammie Gonzalez MD [address] [place] [address] PCP - General Family Medicine 05/12/23 Sammie Gonzalez MD Referring Family Medicine 01/14/21 Sammie Gonzalez MD [address] [place] [address] Referring Family Medicine 05/12/23 Team Status: Inactive [...] September 27, 2024 End: September 27, 2024 Rigger Relationship Specialty Start Date End Date Sammie Gonzalez MD [address] [place] [address] PCP - General Family Medicine 05/12/23 Sammie Gonzalez MD Referring Family Medicine 01/14/21 Sammie Gonzalez MD [address] [facility] [place] [address] Referring Family Medicine 05/12/23 Rigger Relationship Specialty Start Date End Date Sammie Gonzalez MD [address] [place] [address] PCP - General Family Medicine 05/12/23 Sammie Gonzalez MD Referring Family Medicine 01/14/21 Sammie Gonzalez MD [address] [place] [address] Referring Family Medicine 05/12/23 Team Status: Active [...] Team Status: Inactive Member Role Status Dates Mk Broderick MD Attending Provider Active Star t: November 03, 2024 End: November 03, 2024 Sammie Gonzalez MD Primary Care Provider Active Start: November 03, 2024 End: November 03, 2024 Rigger Relationship Specialty Start Date End Date Sammie Gonzalez MD [address] [place] [address] PCP - General Family Medicine 05/12/23 Sammie Gonzalez MD Referring Family Medicine 01/14/21 Sammie Gonzalez MD [address] [place] [address] Referring Family Medicine 05/12/23 Team Status: Inactive [...] Attending Provider Active Start: December 27, 2024 Rigger Relationship Specialty Start Date End Date Sammie Gonzalez MD [address] [place] [address] PCP - General Family Medicine 05/12/23 Sammie Gonzalez MD Referring Family Medicine 01/14/21 Sammie Gonzalez MD [address] [place] [address] Referring Family Medicine 05/12/23 Team Status: Inactive [...] February 10, 2025 End: February 10, 2025 Rigger Relationship Specialty Start Date End Date Sammie Gonzalez MD [address] [facility] [place] [address] PCP - General Family Medicine 05/12/23 Sammie Gonzalez MD Referring Family Medicine 01/14/21 Sammie Gonzalez MD [address] [facility] [place] [address] Referring Family Medicine 05/12/23 Rigger Relationship Specialty Start Date End Date Sammie Gonzalez MD [address] [facility] [place] [address] PCP - General Family Medicine 05/12/23 Sammie Gonzalez MD Referring Family Medicine 01/14/21 Sammie Gonzalez MD [address] [facility] [place] [address] Referring Family Medicine 05/12/23 Rigger Relationship Specialty Start Date End Date Sammie Gonzalez MD [address] [facility] [place] [address] PCP - General Family Medicine 05/12/23 Sammie Gonzalez MD Referring Family Medicine 01/14/21 Sammie Gonzalez MD [address] [facility] [place] [address] Referring Family Medicine 05/12/23 Rigger Relationship Specialty Start Date End Date Sammie Gonzalez MD [address] [facility] [place] [address] PCP - General Family Medicine 05/12/23 Sammie Gonzalez MD Referring Family Medicine 01/14/21 Sammie Gonzalez MD [address] [facility] [place] [address] Referring Family Medicine 05/12/23 Rigger Relationship Specialty Start Date End Date Sammie Gonzalez MD [address] [facility] [place] [address] PCP - General Family Medicine 05/12/23 Sammie Gonzalez MD Referring Family Medicine 01/14/21 Sammie Gonzalez MD [address] [facility] [place] [address] Referring Family Medicine 05/12/23 Rigger Relationship Specialty Start Date End Date Smamie Gonzalez MD [address] [facility] [place] [address] PCP - General Family Medicine 05/12/23 Sammie Gonzalez MD Referring Family Medicine 01/14/21 Sammie Gonzalez MD [address] [facility] [place] [address] Referring Family Medicine 05/12/23 Rigger Relationship Specialty Start Date End Date Sammie Gonzalez MD [address] [place] [address] PCP - General Family Medicine 05/12/23 Sammie Gonzalez MD Referring Family Medicine 01/14/21 Sammie Gonzalez MD [address] [place] [address] Referring Family Medicine 05/12/23 Rigger Relationship Specialty Start Date End Date Sammie Gonzalez MD [address] [place] [address] PCP - General Family Medicine 05/12/23 Sammie Gonzalez MD Referring Family Medicine 01/14/21 Sammie Gonzalez MD [address] [place] [address] Referring Family Medicine 05/12/23 Rigger Relationship Specialty Start Date End Date Sammie Gonzalez MD [address] [place] [address] PCP - General Family Medicine 05/12/23 Sammie Gonzalez MD Referring Family Medicine 01/14/21 Sammie Gonzalez MD [address] [place] [address] Referring Family Medicine 05/12/23 Rigger Relationship Specialty Start Date End Date Sammie Gonzalez MD [address] [place] [address] PCP - General Family Medicine 05/12/23 Sammie Gonzalez MD Referring Family Medicine 01/14/21 Sammie Gonzalez MD [address] [facility] [place] [address] Referring Family Medicine 05/12/23 Rigger Relationship Specialty Start Date End Date Sammie Gonzalez MD [address] [place] [address] PCP - General Family Medicine 05/12/23 Sammie Gonzalez MD Referring Family Medicine 01/14/21 Sammie Gonzalez MD [address] [place] [address] Referring Family Medicine 05/12/23 Rigger Relationship Specialty Start Date End Date Sammie Gonzalez MD [address] [place] [address] PCP - General Family Medicine 05/12/23 aSmmie Gonzalez MD Referring Family Medicine 01/14/21 Sammie Gonzalez MD [address] [facility] [place] [address] Referring Family Medicine 05/12/23 Rigger Relationship Specialty Start Date End Date Sammie Gonzalez MD [address] [place] [address] PCP - General Family Medicine 05/12/23 Sammie Gonzalez MD Referring Family Medicine 01/14/21 Sammie Gonzalez MD [address] [place] [address] Referring Family Medicine 05/12/23 Team Status: Inactive Member Role Status Dates Sammie Gonzalze MD Primary Care Provider Active Start: February [...] March 22, 2025 End: March 22, 2025 Rigger Relationship Specialty Start Date End Date Sammie Gonzalez MD [address] [place] [id number] PCP - General Family Medicine 05/12/23 Sammie Gonzalez MD Referring Family Medicine 01/14/21 Sammie Gonzalez MD [address] [place] [address] Referring Family Medicine 05/12/23 Name Effective Dates (start - stop) Status Members No Information Rigger Relationship Specialty Start Date End Date Sammie Gonzalez MD [address] [place] [address] PCP - General Family Medicine 05/12/23 Sammie Gonzalez MD Referring Family Medicine 01/14/21 Sammie Gonzalez MD [address] [place] [address] Referring Family Medicine 05/12/23 Rigger Relationship Specialty Start Date End Date Sammie Gonzalez MD [address] [place] [address] PCP - General Family Medicine 05/12/23 Sammie Gonzalez MD Referring Family Medicine 01/14/21 Sammie Gonzalez MD [address] [place] [address] Referring Family Medicine 05/12/23 Rigger Relationship Specialty Start Date End Date Sammie Gonzalez MD [address] [place] [address] PCP - General Family Medicine 05/12/23 Sammie Gonzalez MD Referring Family Medicine 01/14/21 Sammie Gonzalez MD [address] [place] [id number] Referring Family Medicine 05/12/23 Team Status: Inactive Member Role Status Dates Sammie Gonzalez MD Primary Care Provider Active Start: May 26, 2025 End: May 26, 2025 Sammie Gonzalez MD Attending Provider Active Sta rt: May 26, 2025 End: May 26, 2025 Rigger Relationship Specialty Start Date End Date Sammie Gonzalez MD PCP - General Family Medicine 03/12/23 Goals [...] BE BASED ON THE PRIMARY CLINICAL RECORDS. [facility] [employer] [facility]. provides no warranty or guarantee of the accuracy or completeness of information in this document.
--- OUTSIDE RECORDS SUMMARY | 2025-05-29 07:01 | XMS_ITS | Encounter Summary ---
Author Organization [facility] Address [facility] [place] [address] Care Team Providers Care Interior Painter Name Role Phone Jesus Camacho MD Unavailable [phone] Jesus Camacho MD Unavailable [phone] Jesus Camacho MD Primary Care Provider [phone] Source Comments In the event this information is protected by the Federal Confidentiality of Alcohol and Drug AbusePatient Records regulations: The Federal rules restrict any use of the information to criminally investigate or prosecute any alcohol or drug abuse patient.[facility] Encounter Details Date Type Department Care Team (Late st Contact Info) Description 12/14/2024 Get Medical Advice [facility] [address] [place] [address] Jacky Pineda MD [address] [place] [address] MRI Social History Tobacco Use [...] is lower risk 8 06/01/2023 Data from: https://www.neighborhoodatlas.medicine.[facility]/. Last address used for calculation [...] 06/22/2025 2:20 PM EDT Office Visit Rheumatology [address] [place] [address] Zulema Mclean MD [address] [facility] [address] [place] [address] 6 month follow up documented as of this encounter Visit Diagnoses Not on filedocumented in this encounter Care Teams Interior Painter Relationship Specialty Start Date End Date Jesus Camacho MD [address] [place] [address] PCP - General Family Medicine 05/12/23 Jesus Camacho MD Referring Family Medicine 01/14/21 Jesus Camacho MD [address] [place] [address] Referring Family Medicine 05/12/23 documented as of this encounter
--- OUTSIDE RECORDS SUMMARY | 2025-05-29 07:01 | XMS_ITS | Encounter Summary ---
Author Organization [facility] Address [address] [place] [address] Care Team Providers Care Outside Sales Executive Name Role Phone Jesus Camacho MD Unavailable [phone] Jesus Camacho MD Unavailable [phone] Jesus Camacho MD Primary Care Provider [phone] Source Comments In the event this information is protected by the Federal Confidentiality of Alcohol and Drug AbusePatient Records regulations: The Federal rules restrict any use of the information to criminally investigate or prosecute any alcohol or drug abuse patient.[facility] Encounter Details Date Type Department Care Team (Late st Contact Info) Description 12/11/2024 Get Medical Advice Neurology Headache [facility] [address] [place] [address] Rachele Fenton, MARILEE.DISC PAD KNOCKOUT WORKER [address] [place] [address] Medicine Social History Tobacco Use [...] lower risk 8 06/01/2023 Data from: https://www.neighborhoodatlas.medicine.[facility]/. Last address used for calculation [address] [facility] 06/01/2023 Comments No Sex and Gender [...] 06/22/2025 2:20 PM EDT Office Visit Rheumatology [address] [place] [address] Zulema Mclean MD [address] [facility] [address] [place] [address] 6 month follow up documented as of this encounter Visit Diagnoses Not on filedocumented in this encounter Care Teams Outside Sales Executive Relationship Specialty Start Date End Date Jesus Camacho MD [address] [place] [address] PCP - General Family Medicine 05/12/23 Jesus Camacho MD Referring Family Medicine 01/14/21 Jesus Camacho MD [address] [place] [address] Referring Family Medicine 05/12/23 documented as of this encounter
--- OUTSIDE RECORDS SUMMARY | 2025-05-29 07:01 | XMS_ITS | Clinical Summary ---
Author Organization [facility] Address [address] [place], [place] [address] Care Team Providers Care Anesthesiology Resident Name Role Phone Jesus Camacho MD Unavailable [phone] Jesus Camacho MD Unavailable [phone] Jesus Camacho MD Primary Care Provider [phone] Allergies No known active allergies Medications benzonatate [...] mcg by mouth daily before breakfast. Active ondansetron orally disintegrating (ZOFRAN ODT) 4 [...] EVERY DAY 90 capsule 2 025 Active nortriptyline (PAMELOR) 10 mg capsuleIndicatio ns:Chronic daily headache Take 1 capsule by mouth daily at bedtime. 30 capsule 3 025 Active hydrOXYchloroQUI NE (PLAQUENIL) 200 mg tablet TAKE 1 TABLET BY MOUTH TWICE A DAY 60 tablet [address] (CYMBALTA) 30 mg capsuleIndicatio ns:Fibromyalgia TAKE 1 CAPSULE BY MOUTH EVERY DAY ALONG WITH THE 60MG CAPSULE TO EQUAL 90MG A DAY 90 capsule 2 025 Active methocarbamol (ROBAXIN) 500 mg tabletIndication s:Chronic daily headache TAKE 1 TABLET BY MOUTH TWICE A DAY NEEDED 45 tablet 2 025 Active DULoxetine (CYMBALTA) 30 mg capsuleIndicatio ns:Fibromyalgia Take one tab along with the 60mg tab to equal 90mg po qd 30 capsule 6 025 2024 Discontinued methocarbamol (ROBAXIN) 500 mg tabletIndication s:Chronic daily headache TAKE 1 TABLET BY MOUTH TWICE A DAY NEEDED 45 tablet 2 025 2024 Discontinued Active Problems Problem Noted Date [...] Assessment & Plan (02/21/2025 12:36 PM EDT): [facility] nutrition education Assessment & Plan (02/14/2025 8:19 [...] treating with decadron 8bid (SSI, PPI) with long-term taper plan off over 1 week At [...] Care Team Description 05/17/2025 Refill Neurology Headache [facility] [address] [place] [address] Rachele Fenton, LIQUOR GALLERY OPERATOR.INSTRUMENT TECHNICIAN HELPER Refill Request 05/15/2025 Refill Rheumatology [address] [place] [address] Zulema Mclaen MD Refill Request 04/25/2025 Refill Rheumatology [address] [place] [address] Zulema Mclean MD Refill Request 04/12/2025 7:00 AM EDT [facility] Neurology [address] [place] [address] Rachele Fenton, LIQUOR GALLERY OPERATOR.INSTRUMENT TECHNICIAN HELPER Meningioma (HCC) (Primary Dx); Chronic daily headache 04/01/2025 Get Medical Advice [facility] [address] [place] [address] Jacky Pineda MD Incision 03/29/2025 10:30 AM EDT [facility] [place] [address] Jacky Pineda MD Intracranial meningioma (HCC) (Primary Dx); Postprocedural state; Dizziness and giddiness 03/26/2025 Get Medical Advice [facility] [place] [address] Jacky Pineda MD Incision 03/20/2025 Get Medical Advice [facility] [place] [address] Jacky Pineda MD Antibiotic 03/20/2025 Refill [facility] [address] [place] [address] Donna Patton MD Refill Request 03/19/2025 [place] [address] Jacky Pineda MD Incision picture 03/15/2025 12:00 [place] [address] S/P craniotomy (Primary Dx) 03/15/2025 Refill [facility] [address] [place], [place] [id number] Donna Patton MD Refill Request 03/15/2025 Travel 03/13/2025 Results Follow-Up Rheumatology [address] [place] [address] Zulema Mclean MD 03/12/2025 Refill Neurology Headache [facility] [address] [place] [address] Rachele Fenton, MARILEE.INSTRUMENT TECHNICIAN HELPER Refill Request 03/08/2025 Telephone [facility] [place] [address] Shakila Phillips RN Surgical Followup 03/08/2025 Get Medical Advice Neurology Headache [facility] [address] [place] [address] Rachele Fenton, LIQUOR GALLERY OPERATOR.INSTRUMENT TECHNICIAN HELPER Nortriptalyne 03/06/2025 10:30 AM EDT Nurse Visit [facility] [address] [place] [address] Shakila Phillips RN S/P craniotomy (Primary Dx); Intracranial meningioma (HCC); Postop check 03/06/2025 Refill Rheumatology [address] [place] [address] Zulema Mclean MD Refill Request 03/02/2025 1:00 PM EDT [facility] Neurosurgery [address] [address] Heahter Moy APRN.INSTRUMENT TECHNICIAN HELPER Benign neoplasm of meninges (HCC) (Primary Dx) 02/27/2025 Patient Msg Neurology [address] [place] [address] Lisa Box RN from Last 3 Months Family History Medical [...] 8 06/01/2023 Data from: https://www.neighborhoodatlas.medicine.[facility].edu/. Last address used for calculation [address] 06/01/2023 Comments No Sex and [...] 06/22/2025 2:20 PM EDT Office Visit Rheumatology [address] [place] [address] Zulema Mclean MD [address] [facility] [address] [place] [address] 6 month follow up Health Maintenance Due [...] 03/04/2021, 006 Medical Devices Implanted Type Area Maintenance Groundman Device Identifier Shelf Expiration Date Model / Serial / Lot Patch Duramatrix-Onla y Plus Collagen 2x2in Dural Regeneration Membrane - [id number] Implanted:Qty: 1 on 02/20/2025 by Jacky Pineda MD at [facility] Patch Right: Head - Cranial JAYNE NEUR 01/11/2027 [id number] / / [id number] Plate Bone 8 Hole Profile - [id number] Implanted:Qty: 1 on 02/20/2025 at [facility] Plate Right: Head - Cranial STRY-HOWM CRANIOMAXILLOFACIAL [id number] / / Plate 3d Large Box Low Profile Titanium Bone 2x2 Hole 1.5mm Screw - [id number] Implanted:Qty: 1 on 02/20/2025 at [facility] Plate Right: Head - Cranial STRY-HOWM CRANIOMAXILLOFACIAL [id number] / / Plate Low Profile Titanium 12mm Bone 2 Hole Bar 1.5mm Screw Nonsterile - [id number] Implanted:Qty: 2 on 02/20/2025 at [facility] Plate Right: Head - Cranial STRY-HOWM CRANIOMAXILLOFACIAL [id number] / / Cover 10mm Medium Titanium [place] Hole Low Profile Tab 1.5mm Screws - [id number] Implanted:Qty: 1 on 02/20/2025 at [facility] Plate Right: Head - Cranial STRY-HOWM CRANIOMAXILLOFACIAL [id number] / / Screw Bone [place] Neuro 3 4mm 1.5mm Self Drill Axial Stability Latex - [id number] Implanted:Qty: 11 on 02/20/2025 at [facility] Screw Right: Head - Cranial STRY-HOWM CRANIOMAXILLOFACIAL [id number] / / [place] Neuro Axs Neuro Screw Disc Pre-Loaded 1.5mm X 4mm Implanted:Qty: 17 on 02/20/2025 at [facility] Screw Right: Head - Cranial JAYNE [id number] / / Procedures Procedure Name Priority Date/Time Associated Diagnosis Comments HEMOGLOBIN A1C Routine 02/15/2025 12:56 PM EDT Pre-op evaluation Type 2 diabetes mellitus without complication, without long-term current use of insulin (HCC) *HEP C AB Routine 03/04/2021 1:39 PM EDT Pain in joint, multiple sites HIV 1/2 COMBO WITH REFLEX TO DIFFERENTIATION 01/05/2006 3:17 PM EDT from Last 3 Months or Most Recently Relevant to Health Maintenance Results * HEMOGLOBIN A1C (02/15/2025 12:56 PM EDT) Hemoglobin A1C 5.4 4.3 - 5.6 % 02/16/2025 6:33 AM EDT [facility] Comment:[place] Diabetes As sociation guidelines indicate that patients with HgbA1c in the range 5.7-6.4% are at increased risk for development of diabetes, and intervention by lifestyle modification may be beneficial. HgbA1c greater or equal to 6.5% is considered diagnostic of diabetes. Estimated Average Glucose 108 mg/dL 02/16/2025 6:33 AM EDT [facility] Comment:eAG: (Estimated aver age glucose) is a calculated value from HgbA1c and is premium service representative of the average blood glucose level in the last 2-3 month period. Blood BLOOD SPECIMEN / Unknown Venipuncture / Unknown 02/15/2025 12:56 PM EDT 02/15/2025 12:56 PM EDT us Marli Martin LIQUOR GALLERY OPERATOR.INSTRUMENT TECHNICIAN HELPER LABORATORY Final Res ult [facility] [address] [address], * HEP REMOTE PANEL BL (03/04/2021 1:39 PM EDT) Hep B Core Ab, Total Negative Negative 03/04/2021 6:[address] [facility] Hep C Antibody IA Negative Negative 03/04/2021 6:[address] [facility] HBsAg Negative Negative 03/04/2021 6:54 PM EDT [facility] Hep B Surface Ab, Qual Negative Negative 03/04/2021 6:55 PM EDT [facility] Comment:NEGATIVE Blood 03/04/2021 1:39 PM EDT 03/04/2021 1:41 PM EDT us Zulema Mclean MD LABORATORY Final Result [facility] [address] [place] [address] [facility] [address] [place] [address] * HIV AB 1&2 SCREEN (01/05/2006 3:17 PM EDT) HIV 1 & 2 Ab (EIA) Non Reactive NR [facility] Comment: If results are indeterminate or otherwise inconsistent with an individual's clinical presentation or risk profile for HIV infection a repeat specimen is requested. A repeat specimen is also recommended for any individual identified positive for the first time. 01/05/2006 3:17 PM EDT us Wade Iqbal LABORATORY Final Result Performing Organization Address City/[facility]/ZIP Co de Phone Number [facility] [address] [place] [address] from Last 3 Months or Most Recently Relevant to Health Maintenance Insurance [place]ICAID [place] [employer] MEDICARE ADVANTAGE O Care Teams Anesthesiology Resident Relationship Specialty Start Date End Date Jesus Camacho MD [address] [place] [address] PCP - General Family Medicine 05/12/23 Jesus Camacho MD Referring Family Medicine 01/14/21 Jesus Camacho MD [address] [place] [address] Referring Family Medicine 05/12/23
--- OUTSIDE RECORDS SUMMARY | 2025-05-29 07:01 | XMS_ITS | Encounter Summary ---
Author Organization [facility] Address [facility] [place] [address] Care Team Providers Care Radiation Technician Name Role Phone Jesus Camacho MD Unavailable [phone] Jesus Camacho MD Unavailable [phone] Jesus Camacho MD Primary Care Provider [phone] Source Comments In the event this information is protected by the Federal Confidentiality of Alcohol and Drug AbusePatient Records regulations: The Federal rules restrict any use of the information to criminally investigate or prosecute any alcohol or drug abuse patient.[facility] Encounter Details Date Type Department Care Team (Late st Contact Info) Description 12/09/2024 Get Medical Advice [facility] [address] [place] [id number] Jacky Pineda MD [address] [place] [address] Kourtney Novak Social History Tobacco [...] lower risk 8 06/01/2023 Data from: https://www.neighborhoodatlas.medicine.[facility]/. Last address used for calculation [address] [facility] 06/01/2023 Comments No Sex and Gender Information [...] 06/22/2025 2:20 PM EDT Office Visit Rheumatology [address] [place] [address] Zulema Mclean MD [address] [facility] [address] [place] [address] 6 month follow up documented as of this encounter Visit Diagnoses Not on filedocumented in this encounter Care Teams Radiation Technician Relationship Specialty Start Date End Date Jesus Camacho MD [address] [place] [address] PCP - General Family Medicine 05/12/23 Jesus Camacho MD Referring Family Medicine 01/14/21 Jesus Camacho MD [address] [place] [address] Referring Family Medicine 05/12/23 documented as of this encounter
--- OUTSIDE RECORDS SUMMARY | 2025-05-29 07:01 | XMS_ITS | Encounter Summary ---
Author Organization [facility] Address [address] [place] [address] Care Team Providers Care Program Manager Name Role Phone Jesus Camacho MD Unavailable [phone] Jesus Camacho MD Unavailable [phone] Jesus Camacho MD Primary Care Provider [phone] Source Comments In the event this information is protected by the Federal Confidentiality of Alcohol and Drug AbusePatient Records regulations: The Federal rules restrict any use of the information to criminally investigate or prosecute any alcohol or drug abuse patient.[facility] Encounter Details Date Type Department Care Team (Late st Contact Info) Description 12/05/2024 Patient Msg [facility] [address] [place] [address] Provider, [facility] Today's Phone Call - Vision [...] is lower risk 8 06/01/2023 Data from: https://www.neighborhoodatlas.medicine.[facility]/. Last address [...] 06/22/2025 2:20 PM EDT Office Visit Rheumatology [address] [place] [address] Zulema Mclean MD [address] [facility] [address] [place] [address] 6 month follow up documented as of this encounter Visit Diagnoses Not on filedocumented in this encounter Care Teams Program Manager Relationship Specialty Start Date End Date Jesus Camacho MD [address] [place] [address] PCP - General Family Medicine 05/12/23 Jesus Camacho MD Referring Family Medicine 01/14/21 Jesus Camacho MD [address] [place] [address] Referring Family Medicine 05/12/23 documented as of this encounter
--- OUTSIDE RECORDS SUMMARY | 2025-05-29 07:02 | XMS_ITS | Encounter Summary ---
Author Organization [facility] Address [address] [place] [address] Care Team Providers Care Machine Cell Tuber Name Role Phone Jesus Camacho MD Unavailable [phone] Jesus Camacho MD Unavailable [phone] Jesus Camacho MD Primary Care Provider [phone] Source Comments In the event this information is protected by the Federal Confidentiality of Alcohol and Drug AbusePatient Records regulations: The Federal rules restrict any use of the information to criminally investigate or prosecute any alcohol or drug abuse patient.[facility] Encounter Details Date Type Department Care Team (Late st Contact Info) Description 03/12/2023 Patient Msg Rheumatology [address] [place] [address] Provider, [facility] Rheumatology Appointment Cancellation Social History Tobacco Use Types Packs/Day Years Used Date Smoking Tobacco: Former Smokeless Tobacco: Never PHQ-2 Answer Date Recorded PHQ-2 score 1 09/22/2022 Area Deprivation Index Answer Date Eliseo rded National Score (1-100), lower number is lower ri sk 90 09/29/2022 State Score (1-10), lower number is lower risk N ot on file 09/29/2022 Data from: https://www.neighborhoodatlas.medicine.[facility].edu/. Last address used for calculation [...] 06/22/2025 2:20 PM EDT Office Visit Rheumatology [address] [place] [address] Zulema Mclean MD [address] [facility] [address] [place], [place] [address] 6 month follow up documented as of this encounter Visit Diagnoses Not on filedocumented in this encounter Care Teams Machine Cell Tuber Relationship Specialty Start Date End Date Jesus Camacho MD [address] [place] [address] PCP - General Family Medicine 05/12/23 Jesus Camacho MD Referring Family Medicine 01/14/21 Jesus Camacho MD [address] [place] [address] Referring Family Medicine 05/12/23 documented as of this encounter
--- OUTSIDE RECORDS SUMMARY | 2025-05-29 07:02 | XMS_ITS | Encounter Summary ---
Author Organization [facility] Address [address] [place] [address] Care Team Providers Care Wrecking Crane Engine Operator Name Role Phone Jesus Camacho MD Unavailable [phone] Jesus Camacho MD Unavailable [phone] Jesus Camacho MD Primary Care Provider [phone] Source Comments In the event this information is protected by the Federal Confidentiality of Alcohol and Drug AbusePatient Records regulations: The Federal rules restrict any use of the information to criminally investigate or prosecute any alcohol or drug abuse patient.[facility] Encounter Details Date Type Department Care Team (Late st Contact Info) Description 12/31/2022 Patient Msg Hematology [address] [place] [address] Provider, Ccf Dr. Mclean Appointment [...] on file 09/29/2022 Data from: https://www.neighborhoodatlas.medicine.[facility].edu/. Last address used for calculation [address] 09/29/2022 Comments No Sex and Gender [...] 06/22/2025 2:20 PM EDT Office Visit Rheumatology [address] [place] [address] Zulema Mclean MD [address] [facility] [address] [place], [place] [id number] 6 month follow up documented as of this encounter Visit Diagnoses Not on filedocumented in this encounter Care Teams Wrecking Crane Engine Operator Relationship Specialty Start Date End Date Jesus Camacho MD [address] [place] [address] PCP - General Family Medicine 05/12/23 Jesus Camacho MD Referring Family Medicine 01/14/21 Jesus Camacho MD [address] [place] [address] Referring Family Medicine 05/12/23 documented as of this encounter
--- OUTSIDE RECORDS SUMMARY | 2025-05-29 07:02 | XMS_ITS | Encounter Summary ---
Author Organization [facility] Address [facility] [place] [address] Care Team Providers Care Composite Worker Name Role Phone Jesus Camacho MD Unavailable [phone] Jesus Camacho MD Unavailable [phone] Jesus Camacho MD Primary Care Provider [phone] Source Comments In the event this information is protected by the Federal Confidentiality of Alcohol and Drug AbusePatient Records regulations: The Federal rules restrict any use of the information to criminally investigate or prosecute any alcohol or drug abuse patient.[facility] Encounter Details Date Type Department Care Team (Late st Contact Info) Description 11/02/2022 Get Medical Advice Rheumatology [address] [place] [address] Zulema Mclean MD [address] [facility] [address] [place], [place] [id number] Fibromyalgia Social History Tobacco Use Types Packs/Day Years Used Date Smoking Tobacco: Former Smokeless Tobacco: Never PHQ-2 Answer Date Recorded PHQ-2 score 1 09/22/2022 Area Deprivation Index Answer Date Eliseo rded National Score (1-100), lower number is lower ri sk 90 09/29/2022 State Score (1-10), lower number is lower risk N ot on file 09/29/2022 Data from: https://www.neighborhoodatlas.medicine.[facility]/. Last address used for calculation [address] [...] 06/22/2025 2:20 PM EDT Office Visit Rheumatology [address] [place] [address] Zulema Mclean MD [address] [facility] [address] [place] [address] 6 month follow up documented as of this encounter Visit Diagnoses Not on filedocumented in this encounter Care Teams Composite Worker Relationship Specialty Start Date End Date Jesus Camacho MD [address] [place] [address] PCP - General Family Medicine 05/12/23 Jesus Camacho MD Referring Family Medicine 01/14/21 Jesus Camacho MD [address] [place] [address] Referring Family Medicine 05/12/23 documented as of this encounter
--- OUTSIDE RECORDS SUMMARY | 2025-05-29 07:02 | XMS_ITS | Encounter Summary ---
Author Organization [facility] Address [facility] [place] [address] Care Team Providers Care Event Sales Manager Name Role Phone Jesus Camacho MD Unavailable [phone] Jseus Camacho MD Unavailable [phone] Jesus Camacho MD Primary Care Provider [phone] Source Comments In the event this information is protected by the Federal Confidentiality of Alcohol and Drug AbusePatient Records regulations: The Federal rules restrict any use of the information to criminally investigate or prosecute any alcohol or drug abuse patient.[facility] Encounter Details Date Type Department Care Team (Late st Contact Info) Description 01/06/2023 Get Medical Advice Rheumatology [address] [place] [address] Zulema Mclean MD [address] [facility] [address] [place], [place] [id number] Fibromyalgia update Social History Tobacco Use Types Packs/Day Years Used Date Smoking Tobacco: Former Smokeless Tobacco: Never PHQ-2 Answer Date Recorded PHQ-2 score 1 09/22/2022 Area Deprivation Index Answer Date Eliseo rded National Score (1-100), lower number is lower ri sk 90 09/29/2022 State Score (1-10), lower number is lower risk N ot on file 09/29/2022 Data from: https://www.neighborhoodatlas.medicine.[facility]/. Last address used for calculation [...] 06/22/2025 2:20 PM EDT Office Visit Rheumatology [address] [place] [address] Zulema Mclean MD [address] [facility] [address] [place] [address] 6 month follow up documented as of this encounter Visit Diagnoses Not on filedocumented in this encounter Care Teams Event Sales Manager Relationship Specialty Start Date End Date Jesus Camacho MD [address] [place] [address] PCP - General Family Medicine 05/12/23 Jesus Camacho MD Referring Family Medicine 01/14/21 Jesus Camacho MD [address] [place] [address] Referring Family Medicine 05/12/23 documented as of this encounter
[2025-05-29 07:04] VITALS: BP 140/69; PULSE 85; TEMP 37; O2SAT 94
[2025-05-29 07:34] VITALS: BP 152/85; PULSE 82; O2SAT 96
[2025-05-29 07:35] VITALS: BP 151/82; PULSE 80; O2SAT 96
[2025-05-29] MEDS: BUPIVACAINE HCL 0.25% PF 25 MG/10 ML VIAL INJ (07:36)
[2025-05-29] MEDS: DEXAMETHASONE SOD PHOS 10 MG/ML VIAL INJ (07:36)
[2025-05-29] MEDS: IOHEXOL 240 MG/ML - 10 ML VIAL 24 MG INJ (07:37)
[2025-05-29] MEDS: LIDOCAINE HCL 2% 400 MG/20 ML MDV 3 ML INJ (07:38)
--- NOTE | 2025-05-29 07:40 | W.PM.PROCNOT ---
Date of procedure: 05/29/25 Pre-op diagnosis: M54.12 Post-op diagnosis: same as pre-op Procedure: Procedure: Bilateral C6-7 transforaminal epidural steroid injection Medications: Bupivacaine 0.25% 1cc, lidocaine 2% 1cc, dexamethasone 10mg The patient was seen and examined in the preoperative holding area.? Informed consent was obtained and placed on the chart.? Patient was brought to the medical procedure unit and placed in the prone position where a timeout was completed verifying the correct patient, procedure site, position, and planned special equipment using sterile aseptic technique.? Under direct fluoroscopic visualization a 25-gauge Quincke tipped spinal needle was advanced at level left C6-7 to the designated neural foramen where contrast dye was injected to show adequate spread.? There was no evidence of vascular or adverse uptake.? Epidural spread was appreciated.? The above-mentioned injectate was then placed in a 1.5 mL aliquot preceded by negative aspiration.? The needle was removed. The same procedure, at the same level, was completed on the opposite side. ? Patient was taken to the postprocedural recovery area and monitored for an appropriate length of time before found suitable for discharge in the accompaniment of a responsible adult. Anesthesia: Local Surgeon: Ridge Hollingsworth Pathology: none sent Condition: stable Disposition: no change
== END 2025-05-29 07:41 | disposition home or self-care (01) ==
LOC: SURGOUT 06:58
PROVIDERS: PCP Family Medicine; Visit Provider Anesthesiology
DX: M54.12 Radiculopathy, cervical region (principal); E11.8 Type 2 diabetes mellitus with unspecified complications; Z79.84 Long term (current) use of oral hypoglycemic drugs
CPT/HCPCS: 36415; 64479; 82948; J0665; J1100; Q9966

== ENCOUNTER 2025-06-07 13:03 | Outpatient (OUT) | payer MEDICARE, MEDICAID, SELFPAY ==
--- OUTSIDE RECORDS SUMMARY | 2025-05-24 08:53 | XMS_ITS | Continuity of Care Document ---
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 MEDICAID SPECIMEN HANDLING CRYOTHERAPY OF SKIN Medrxyprogester acetate inj FLU VACCINE, 3 YRS & >, IM OFFICE/OUTPATIENT VISIT, EST Medrxyprogester acetate inj Advance Directives Directive Yes / No Effective Date File Name No Information Encounters Encounter Description Practice Location Reason(s) For Visit Diagnoses Date Provider Providers Copied on Encounter OFFICE/OUTPA TIENT VISIT, [facility], [address] [place] [address], [id number] , [phone] [facility] Encounter for Depo-Provera contraception 5 [facility]. [address] [place] [address], [id number], [place]. tel:[phone] OFFICE/OUTPA TIENT VISIT, [facility], [address], [place], [id number] , [place] tel:[phone] [facility] Encounter for Depo-Provera contraception 5 [facility]. [address], [place], [id number], [place]. tel:[phone] OFFICE/OUTPA TIENT VISIT, [facility], [address] [place] [address], [id number] , [place] tel:[phone] [facility] contraception (chief complaint) Depo Provera injectionBody mass index [BMI]40.0-44.9 , adult Dec- 5 [facility]. [address], [place], [id number], [place]. tel:[phone] [facility], [address] [place] [address], [id number] , [place] tel: [phone] [facility] pa (chief complaint) Body mass index [BMI]40.0-44.9 , adultEncounter for screening for dental disorders 5 Jefe Castillo. [address] [place] [address], [id number], [place]. tel:[phone] OFFICE/OUTPA TIENT VISIT, EST [facility], [address] [place] [address], [id number] , [place] tel: [phone] [facility] Depo (chief complaint) Body mass index [BMI]40.0-44.9 , adultDepo Provera injection 5 [facility]. [address] [place] [address], [id number], [place]. tel:[phone] PREV VISIT, EST, AGE 40-64 [facility], [address] [place] [address], [id number] , [place] tel: [phone] [facility] annual exam (chief complaint)cont raception (chief complaint) Encounter for gynecological examination (general) (routine) without abnormal findingsBody mass index [BMI]40.0-44.9 , adultDepo Provera injectionEncou nter for screening mammogram for Ca of breast 4 [facility]. [address] [place] [address], [id number], [place]. tel:[phone] [facility], [address] [place] [address], [id number] , [place] tel: [phone] [facility] dn (chief complaint)dn (chief complaint) Encounter for screening for dental disorders 4 Jefe Castillo. [address] [place], [place], [id number], [place]. tel:[phone] OFFICE/OUTPA TIENT VISIT, [facility], [address], [place], [id number] , [place] tel:+ [phone] [facility] Depo (chief complaint) Depo Provera injectionBody mass index [BMI]40.0-44.9 , adult 4 [facility]. [address], [place], [id number], [place]. tel:[phone] OFFICE/OUTPA TIENT VISIT, [facility], [address], [place], [id number] , [place] tel:+ [phone] [facility] Depo (chief complaint) Body mass index [BMI]40.0-44.9 , adultEncounter for surveillance of injectable contraceptive 4 [facility]. [address], [place], [id number], [place]. tel:[phone] OFFICE/OUTPA TIENT VISIT, [facility], [address], [place], [id number] , [place] tel:[phone] [facility] Depo (chief complaint) Depo Provera injectionBody mass index [BMI]40.0-44.9 , adult 4 [facility]. [address], [place], [id number], [place]. tel:[phone] OFFICE/OUTPA TIENT VISIT, [facility], [address], [place], [id number] , [place] tel:+ [phone] [facility] contraception (chief complaint) Body mass index [BMI] 39.0-39.9, adultEncounter for surveillance of injectable contraceptive 4 [facility]. [address], [place], [id number], [place]. tel:[phone] OFFICE/OUTPA TIENT VISIT, [facility], [address], [place], [id number] , [place] tel: [phone] [facility] annual exam (chief complaint) Encounter for gynecological examination (general) (routine) without abnormal findingsEncoun ter for surveillance of injectable contraceptiveB francisca mass index [BMI] 37.0-37.9, adult 3 [facility]. [address], [place], [id number], [place]. tel:[phone] OFFICE/OUTPA TIENT VISIT, [facility], [address], [place], [id number] , [place] tel: [phone] [facility] contraception (chief complaint) Encounter for screening mammogram for Ca of breastEncounte r for surveillance of injectable contraceptive 3 [facility]. [address], [place], [id number], [place]. tel:[phone] OFFICE/OUTPA TIENT VISIT, [facility], [address], [place], [id number] , [place] tel: [phone] [facility] contraception (chief complaint) Encounter for surveillance of injectable contraceptiveB francisca mass index [BMI] 39.0-39.9, adult 3 [facility]. [address], [place], [id number], [place]. tel:[phone] OFFICE/OUTPA TIENT VISIT, [facility], [address], [place], [id number] , [place] tel: [phone] [facility] contraception (chief complaint) Encounter for surveillance of injectable contraceptiveB francisca mass index [BMI]40.0-44.9 , adult 3 [facility]. [address], [place], [id number], [place]. tel:[phone] OFFICE/OUTPA TIENT VISIT, [facility], [address], [place], [id number] , [place] tel:[phone] [facility] contraception (chief complaint) Encounter for surveillance of injectable contraceptiveB francisca mass index [BMI]40.0-44.9 , adult Aug- 2 [facility]. [address], [place], [id number], [place]. tel:[phone] OFFICE/OUTPA TIENT VISIT, [facility], [address], [place], [id number] , [place] tel: [phone] [facility] annual exam (chief complaint) Encounter for gynecological examination (general) (routine) without abnormal findingsBody mass index [BMI] 38.0-38.9, adultEncounter for STD screeningOther problem related to lifestyleEncou nter for surveillance of injectable contraceptiveE ncounter for screening mammogram for Ca of breast 2 [facility]. [address], [place], [id number], [place]. tel:[phone] OFFICE/OUTPA TIENT VISIT, [facility], [address], [place], [id number] , [place] tel: [phone] [facility] contraception (chief complaint) Encounter for surveillance of injectable contraceptiveB francisca mass index [BMI] 37.0-37.9, adult 2 [facility]. [address], [place], [id number], [place]. tel:[phone] OFFICE/OUTPA TIENT VISIT, [facility], [address], [place], [id number] , [place] tel:[phone] [facility] contraception (chief complaint) Encounter for surveillance of injectable contraceptiveB francisca mass index [BMI] 39.0-39.9, adult Dec- 2 [facility]. [address], [place], [id number], [place]. tel:[phone] OFFICE/OUTPA TIENT VISIT, [facility], [address], [place], [id number] , [place] tel: [phone] [facility] contraception (chief complaint) Body mass index [BMI] 39.0-39.9, adultEncounter for surveillance of injectable contraceptive 2 [facility]. [address], [place], [id number], [place]. tel:[phone] [facility], [address], [place], [id number] , [place] tel: [phone] [facility] No Information 1 Gera Melgoza. [address], [place], [id number], [place]. tel:[phone] OFFICE/OUTPA TIENT VISIT, [facility], [address], [place], [id number] , [place] tel: [phone] [facility] contraception (chief complaint) Encounter for surveillance of injectable contraceptiveB francisca mass index [BMI]40.0-44.9 , adult 1 [facility]. [address], [place], [id number], [place]. tel:[phone] OFFICE/OUTPA TIENT VISIT, [facility], [address], [place], [id number] , [place] tel: [phone] [facility] annual exam (chief complaint) Encounter for gynecological examination (general) (routine) without abnormal findingsEncoun ter for screening mammogram for cancer of breastEncounte r for surveillance of injectable contraceptiveB francisca mass index [BMI] 39.0-39.9, adult 1 [facility]. [address], [place], [id number], [place]. tel:[phone] OFFICE/OUTPA TIENT VISIT, [facility], [address], [place], [id number] , [place] tel: [phone] [facility] contraception (chief complaint) Encounter for surveillance of injectable contraceptiveB francisca mass index [BMI] 39.0-39.9, adult 1 [facility]. [address], [place], 6373599[address], [place]. tel:[phone] OFFICE/OUTPA TIENT VISIT, [facility], [address], [place], [id number] , [place] tel: [phone] [facility] contraception (chief complaint) Encounter for surveillance of injectable contraceptiveB francisca mass index [BMI]40.0-44.9 , adult Oct- 1 [facility]. [address], [place], [id number], [place]. tel:[phone] OFFICE/OUTPA TIENT VISIT, [facility], [address], [place], [id number] , [place] tel: [phone] [facility] contraception (chief complaint) Body mass index [BMI]40.0-44.9 , adultEncounter for surveillance of injectable contraceptive Jul- 0 0 [facility]. [address], [place], [id number], [place]. tel:[phone] OFFICE/OUTPA TIENT VISIT, [facility], [address], [place], [id number] , [place] tel: [phone] [facility] contraception (chief complaint) Body mass index (BMI) 40.0-44.9, adultEncounter for surveillance of injectable contraceptive May-0 0 [facility]. [address], [place], 797596960, [place]. 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 [address], [place], [id number], [place]. tel:[phone] [facility], [address], [place], [id number] , [place] tel:[phone] [facility] Body mass index (BMI) 39.0-39.9, adultEncounter for surveillance of injectable contraceptive 0 [facility]. [address], [place], [id number], [place]. tel:[phone] OFFICE/OUTPA TIENT VISIT, [facility], [address], [place], 317621082 , [place] tel:+ [phone] [facility] contraception (chief complaint) Encounter for surveillance of injectable contraceptiveB francisca mass index (BMI) 39.0-39.9, [facility] 0 [facility] [address], [id number], [place]. tel:[phone] OFFICE/OUTPA TIENT VISIT, [facility], [address], [place], [id number] , [place] tel:[phone] [facility] contraception (chief complaint) Encounter for surveillance of injectable contraceptiveB francisca mass index (BMI) 37.0-37.9, adult 9 [facility] [address], [address], [place]. tel:[phone] OFFICE/OUTPA TIENT VISIT, [facility], [address], [place], [id number] , [place] tel:[phone] [facility] contraception (chief complaint) Body mass index (BMI) 36.0-36.9, adultEncounter for surveillance of injectable contraceptive 9 [facility] [address], [place], [address]45[address], [place]. tel:[phone] OFFICE/OUTPA TIENT VISIT, [facility], [address], [place], [id number] , [place] tel:+ [phone] [facility] annual exam (chief complaint) Encntr for house builder exam (general) (routine) w/o abn findingsBody mass index (BMI) 35.0-35.9, adultEncounter for STD screeningEncou nter for surveillance of injectable contraceptiveO ther problem related to lifestyle [facility]. [address], [place], [id number], [place]. tel:[phone] OFFICE/OUTPA TIENT VISIT, [facility], [address], [place], [id number] , [place] tel: [phone] [facility] contraception (chief complaint) Body mass index (BMI) 34.0-34.9, adultEncounter for surveillance of injectable contraceptive Nov- 9 [facility]. [address] [place] [address], [id number], [place]. tel:[phone] OFFICE/OUTPA TIENT VISIT, [facility], [address], [place], [id number] , [place] tel:+ [phone] [facility] contraception (chief complaint) Encounter for surveillance of injectable contraceptiveB francisca mass index (BMI) 32.0-32.9, adult Aug-09 22- 8 [facility]. [address], [place], [id number], [place]. tel:[phone] OFFICE/OUTPA TIENT VISIT, [facility], [address] [place] [address], [id number] , [place] tel:+ [phone] [facility] contraception (chief complaint) Encounter for surveillance of injectable contraceptiveB francisca mass index (BMI) 30.0-30.9, adult Jun-- 8 [facility]. [address], [place], [id number], [place]. tel:[phone] [facility], [address], [place], 712163294 , [place] tel: [phone] [facility] contraception (chief complaint) Encounter for surveillance of injectable contraceptiveB francisca mass index (BMI) 30.0-30.9, adult 8 [facility]. [address], [place], [id number], [place]. tel:[phone] [facility], [address], [place], 559279334 , [place] tel: [phone] [facility] No Information 8 Corinai DO Brody. [address], [place], [id number], [place]. tel:[phone] OFFICE/OUTPA TIENT VISIT, EST [facility], [address], [place], 504141229 , [place] tel: [phone] [facility] contraception (chief complaint) No Information 8 [facility]. [address], [place], [id number], [place]. tel:[phone] PREV VISIT, EST, AGE 40-64 [facility], [address] [place] [address], [id number] , [place] tel: [phone] [facility] annual exam (chief complaint) Encntr for house builder exam (general) (routine) w/o abn findingsEncoun ter for screening mammogram for cancer of breastEncounte r for STD screeningOther problem related to lifestyleEncou nter for surveillance of injectable contraceptiveB francisca mass index (BMI) 30.0-30.9, adult Dec- 8 [facility]. [address], [place], 139228995, [place]. tel:[phone] OFFICE/OUTPA TIENT VISIT, EST [facility], [address], [place], [id number] , [place] tel:+ [phone] [facility] contraception (chief complaint) Encounter for surveillance of injectable contraceptive 8 [facility]. [address], [place], 928622583, [place]. tel:[phone] OFFICE/OUTPA TIENT VISIT, [facility], [address], [place], [id number] , [place] tel: [phone] [facility] contraception (chief complaint) Encounter for surveillance of injectable contraceptive 7 [facility]. [address], [place], 322010784, [place]. tel:[phone] OFFICE/OUTPA TIENT VISIT, [facility], [address], [place], [id number] , [place] tel: [phone] [facility] contraception (chief complaint) Encounter for surveillance of injectable contraceptive 7 [facility]. [address], [place], 198808691, [place]. tel:[phone] OFFICE/OUTPA TIENT VISIT, [facility], [address], [place], 647206754 , [place] tel: [phone] [facility] contraception (chief complaint) Encounter for surveillance of injectable contraceptive 7 [facility] [address], [place], 424100742, [place]. tel:[phone] OFFICE/OUTPA TIENT VISIT, [facility], [address], [place], 050767373 , [place] tel:+ [phone] [facility] Cryo follow-up (chief complaint) Condyloma acuminatum 7 Sandy Kim. [address], [place], [id number], [place]. tel:[phone] OFFICE/OUTPA TIENT VISIT, [facility], [address], [place], [id number] , [place] tel: [phone] [facility] cyrotherapy (chief complaint) Condyloma acuminatum Dec- 7 Sandy Kim. [address], [place], 255951403, [place]. tel:[phone] PREV VISIT, [facility], AGE 18-39 [facility], [address], [place], 416663266 , [place] tel: [phone] [facility] annual exam (chief complaint) Encounter for surveillance of injectable contraceptive- well woman with abnormal findingEncount er for STD screeningOther problem related to lifestyleCondy amy acuminatum Nov- 7 [facility]. [address], [place], [id number], [place]. tel:[phone] OFFICE/OUTPA TIENT VISIT, [facility], [address] [place] [address], [id number] , [place] tel: [phone] [facility] contraception (chief complaint) Encounter for surveillance of injectable contraceptive 7 [facility]. [address], [place], 910503296, [place]. tel:[phone] OFFICE/OUTPA TIENT VISIT, [facility], [address], [place], 346871695 , [place] tel: [phone] [facility] contraception (chief complaint) Encounter for surveillance of injectable contraceptive 6 [facility]. [address], [place], [id number], [place]. tel:[phone] OFFICE/OUTPA TIENT VISIT, [facility], [address], [place], 831866376 , [place] tel: [phone] [facility] contraception (chief complaint) Encounter for surveillance of injectable contraceptive 6 [facility]. [address], [place], 037857706, [place]. tel:[phone] OFFICE/OUTPA TIENT VISIT, [facility], [address], [place], 588900074 , [place] tel: [phone] [facility] contraception (chief complaint) Encounter for surveillance of injectable contraceptive 6 [facility]. [address], [place], 589023439, [place]. tel:[phone] PREV VISIT, EST, AGE 18-39 [facility], [address], [place], 889203406 , [place] tel: [phone] [facility] annual exam (chief complaint) Encounter for general house builder exam without abnormal findingEncount er for STD screeningOther problem related to lifestyleEncou nter for surveillance of injectable contraceptive 6 [facility]. [address], [place], 185601368, [place]. tel:[phone] OFFICE/OUTPA TIENT VISIT, [facility], [address], [place], 314503857 , [place] tel: [phone] [facility] contraception (chief complaint) Encounter for surveillance of injectable contraceptive 5 [facility]. [address], [place], 806961292, [place]. tel:[phone] OFFICE/OUTPA TIENT VISIT, [facility], [address], [place], 574743404 , [place] tel: [phone] [facility] contraception (chief complaint) Other specified contraceptive management 5 [facility]. [address], [place], 525268105, [place]. tel:[phone] OFFICE/OUTPA TIENT VISIT, [facility], [address], [place], 300305672 , [place] tel: [phone] [facility] Depo/supply (chief complaint) Other specified contraceptive management 5 [facility]. [address], [place], 141350301, [place]. tel:[phone] OFFICE/OUTPA TIENT VISIT, [facility], [address], [place], 434018620 , [place] tel: [phone] [facility] No Information 5 Hank Poole. [address], [place], 791939148, [place]. tel:[phone] OFFICE/OUTPA TIENT VISIT, [facility], [address], [place], 211236661 , [place] tel: [phone] [facility] Other specified contraceptive management 5 Hank [facility]. [address], [place], [id number], [place]. tel:[phone] OFFICE/OUTPA TIENT VISIT, [facility], [address], [place], 175262110 , [place] tel: [phone] [facility] annual visit (chief complaint)trevon h control--Depo (chief complaint) Influenza VaccineGynecol ogical ExaminationOth er specified contraceptive management 4 Hank [facility]. [address], [place], 623628545, [place]. tel:[phone] OFFICE/OUTPA TIENT VISIT, [facility], [address], [place], 792111184 , [place] tel: [phone] [facility] supply visit / depo (chief complaint) Other specified contraceptive management 4 [facility]. [address], [place], 291693872, [place]. tel:[phone] OFFICE/OUTPA TIENT VISIT, [facility], [address], [place], 041172523 , [place] tel: [phone] [facility] supply visit/ depo (chief complaint) Other specified contraceptive management 4 Hank [facility]. [address], [place], 875572650, [place]. tel:[phone] OFFICE/OUTPA TIENT VISIT, [facility], [address], [place], 049350073 , [place] tel:[phone] [facility] control-Depo (chief complaint) Other specified contraceptive management 4 Hank [facility]. [address], [place], 706105418, [place]. tel:[phone] OFFICE/OUTPA TIENT VISIT, [facility], [address], [place], 480759066 , [place] tel:[phone] [facility] supply visit / depo (chief complaint) Surveillance of other contraceptive method 4 Gera Melgoza. [address], [place], 663779885, [place]. tel:[phone] [facility], [address], [place], 217975162 , [place] tel:[phone] [facility] annual visit (chief complaint) Gynecological ExaminationGen eral counseling on initiation of other contraceptive measuresOther specified contraceptive management 3 Jairon Lopez. [address] [place], [address], [place]. tel:[phone] OFFICE/OUTPA TIENT VISIT, [facility], [address], [place], 383812908 , [place] tel:[phone] [facility] depo (chief complaint) Surveillance of other contraceptive method 3 Joshua Owen. [address], [place], 424043383, [place]. tel:[phone] OFFICE/OUTPA TIENT VISIT, [facility], [address], [place], 122809411 , [place] tel:+ [phone] [facility] depo (chief complaint) Surveillance of other contraceptive method 3 Joshua Owen. [address], [place], 313943656, [place]. tel:[phone] OFFICE/OUTPA TIENT VISIT, [facility], [address], [place], 479442467 , [place] tel: [phone] [facility] No Information 3 Lamp Lexie. [address], [place], 916273389, [place]. tel:[phone] OFFICE/OUTPA TIENT VISIT, [facility], [address], [place], 364797380 , [place] tel: [phone] [facility] No Information 2 Jessica Marcum. [address], [place], [id number], [place]. OFFICE/OUTPA TIENT VISIT, [facility], [address], [place], 896974578 , [place] tel: [phone] [facility] No Information 2201 2 Lamp Lexie. [address], [place], 898704287, [place]. tel:[phone] [facility], [address], [place], 886929403 , [place] tel: [phone] [facility] No Information 2 Lamp Lexie. [address], [place], 456573362, [place]. tel:[phone] OFFICE/OUTPA TIENT VISIT, [facility], [address], [place], 644638951 , [place] tel: [phone] [facility] No Information 0 2 Lamp Lexie. [address], [place], 897404259, [place]. tel:[phone] OFFICE/OUTPA TIENT VISIT, [facility], [address], [place], 849247250 , [place] tel: [phone] [facility] No Information 2 Lamp Lexie. [address] [place], [place], [id number], [place]. tel:[phone] OFFICE/OUTPA TIENT VISIT, [facility], [address] [place], [place], [id number] , [place] tel: [phone] [facility] No Information 1 Visci DO Skinner. [address] [place], [place], [id number], [place]. tel:[phone] OFFICE/OUTPA TIENT VISIT, [facility], [address] [place], [place], [id number] , [place] tel: [phone] [facility] No Information 0 1 Visci DO Skinner. [address] [place], [place], [id number], [place]. tel:[phone] PREV VISIT, NEW, AGE 18-39 [facility], [address], [place], [id number] , [place] tel: [phone] [facility] No Information 1 Lamp Lexie. [address] [place], [place], [id number], [place]. tel:[phone] OFFICE/OUTPA TIENT VISIT, [facility], [address], [place], [id number] , [place] tel: [phone] [facility] No Information 1 Visci DO Skinner. [address] [place], [place], [id number], [place]. tel:[phone] OFFICE/OUTPA TIENT VISIT, [facility], [address] [place], [place], [id number] , [place] tel: [phone] [facility] No Information 0 Visci DO Brody. [address] [place], [place], [id number], [place]. tel:[phone] OFFICE/OUTPA TIENT VISIT, [facility], [address] [place], [place], [id number] , [place] tel: [phone] [facility] No Information 3-201 0 Visci DO Brody. [address] [place], [place], [id number], [place]. tel:[phone] OFFICE/OUTPA TIENT VISIT, [facility], [address], [place], [id number] , [place] tel: [phone] [facility] No Information 0 1-201 0 Visci DO Brody. [address] [place], [place], [id number], [place]. tel:[phone] PREV VISIT, [facility], AGE 18-39 [facility], [address], [place], [id number] , [place] tel: [phone] [facility] No Information 0 6-201 0 Lamp Lexie. [address] [place], [place], [id number], [place]. tel:[phone] OFFICE/OUTPA TIENT VISIT, [facility], [address] [place], [place], [id number] , [place] tel: [phone] [facility] No Information 0 Visci DO Brody. [address] [place], [place], [id number], [place]. tel:[phone] [facility], [address] [place], [place], [id number] , [place] tel: [phone] [facility] No Information 4-201 0 Visci DO Brody. [address] [place], [place], [id number], [place]. tel:[phone] OFFICE/OUTPA TIENT VISIT, [facility], [address] [place], [place], [id number] , [place] tel: [phone] [facility] No Information 2-200 9 Leah Dozier. [address] [place], [place], [id number]. tel:[phone] [facility], [address] [place], [id number] , [place] tel: [phone] [facility] No Information 2 9 Visci DO Skinner. [address] [facility] [place] [id number], [place]. tel:[phone] OFFICE/OUTPA TIENT VISIT, [facility], [address] [place], [id number] , [place] tel: [phone] [facility] No Information 2 9 No Information OFFICE/OUTPA TIENT VISIT, [facility], [address] [facility]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
--- OUTSIDE RECORDS SUMMARY | 2025-06-05 17:40 | XMS_ITS | Encounter Summary ---
Author Organization [facility] Address [address] [place] [address] Care Team Providers Care Tack Cutter Name Role Phone Jesus Camacho MD Primary Care Provider [phone] Encounter Details Date Type Department Care Team (Late st Contact Info) Description 06/05/2025 5:40 PM EDT [facility] [address] [facility] [address] [place] [phone] Lamar Rose, REHABILITATION SPECIALIST [address] [place] [address] Rib pain on right side (Primary Dx); Sprain of costal cartilage, initial encounter Social History Tobacco Use Types Packs/Day Years [...] Sign Reading Time Taken Comments Blood Pressure 142/90 06/05/2025 5:46 PM EDT Pulse 88 06/05/2025 5:46 PM EDT Temperature 37.1 C (98.7 F) 06/05/2025 5:46 PM EDT Respiratory Rate 20 06/05/2025 5:46 PM EDT Oxygen Saturation 99% 06/05/2025 5:46 PM EDT Inhaled Oxygen Concentration - - Weight 115 kg (254 lb) 06/05/2025 5:46 PM EDT Height - - Body Mass Index 42.27 03/25/2023 10:35 AM EDT documented in this encounter Plan of Treatment Not on file documented as of this encounter Results * XR ribs 2 views right w chest anteroposterior (06/05/2025 6:23 PM EDT) Anatomical Region Laterality Modality Rib, Abdomen Right Radiographic Lauryn ging 06/06/2025 8:53 AM EDT Impressions 06/06/2025 8:55 AM EDT Chronic appearing right sixth and seventh rib deformities. No distinct acute displaced rib fracture. ELECTRONICALLY SIGNED BY: Sylvester Triplett MD Narrative 06/06/2025 8:55 AM EDT EXAMINATION/TECHNIQUE: XR RIBS 2 VIEWS RIGHT WITH CHEST ANTEROPOSTERIOR HISTORY: Right-sided rib pain. No injury. COMPARISON: None RESULT: No consolidation, pleural effusion, or pneumothorax. Normal cardiomediastinal silhouette. Chronic appearing right sixth and seventh rib deformities. No distinct acute displaced rib fracture. Degenerative changes. Mild S-shaped scoliosis in the spine. Surgical clips projecting over the right upper hemithorax. Procedure Note Sylvester Triplett MD - 06/06/2025 EXAMINATION/TECHNIQUE: XR RIBS 2 VIEWS RIGHT WITH CHEST ANTEROPOSTERIOR HISTORY: Right-sided rib pain. No injury. COMPARISON: None RESULT: No consolidation, pleural effusion, or pneumothorax. Normalcardiomediastinal silhouette. Chronic appearing right sixth and seventh rib deformities. No distinctacute displaced rib fracture. Degenerative changes. Mild S-shapedscoliosis in the spine. Surgical clips projecting over the right upperhemithorax. IMPRESSION: Chronic appearing right sixth and seventh rib deformities. No distinctacute displaced rib fracture. ELECTRONICALLY SIGNED BY: Sylvester Triplett MD Lamar Rose NP IMG XR PROCEDURES Final Resu lt documented in this encounter Visit Diagnoses Diagnosis Rib pain on right side- Primary Sprain of costal cartilage, initial encounter Rib pain on right side documented in this encounter Administered Medications Inactive Administered Medications - up to 3 most recent administrations Medication Order MAR Action Action Date Dose Rate Site ketorolac (Toradol) injection 60 mg 60 mg, Intramuscular, Once, On 06/05/25 at 1830, For 1 dose, Max daily dose: 120 mg. Max duration: 5 days totalIndications:Rib pain on right side Given 06/05/2025 6:19 PM EDT 60 mg Left Gluteal documented in this encounter Care Teams Tack Cutter Relationship Specialty Start Date End Date Jesus Camacho MD PCP - General Family Medicine 03/12/23 documented as of this encounter
--- OUTSIDE RECORDS SUMMARY | 2025-06-05 18:15 | XMS_ITS | Encounter Summary ---
Author Organization [facility] Address [address] [place] [address] Care Team Providers Care Mold Design Engineer Name Role Phone Jesus Camacho MD Primary Care Provider [phone] Encounter Details Date Type Department Care Team (Latest Contact Info) Description 06/05/2025 6:15 PM EDT Ancillary Procedure [facility] [address] [phone] Rib pain on right side Social History Tobacco Use Types Packs/Day Years [...] on file documented as of this encounter Procedures Procedure Name Priority Date/Time Associated Diagnosis Comments XR RIBS 2 VIEWS RIGHT WITH CHEST ANTEROPOSTERIOR STAT 06/05/2025 6:23 PM EDT Rib pain on right side documented in this encounter Results * XR ribs 2 [...] SIGNED BY: Sylvester Triplett MD Lamar Rose POLICY ADVISER IMG XR PROCEDURES Final Resu lt documented in this encounter Visit Diagnoses Diagnosis Rib pain on right side documented in this encounter Care Teams Mold Design Engineer Relationship Specialty Start Date End Date Jesus Camacho MD PCP - General Family Medicine 03/12/23 documented as of this encounter
--- OUTSIDE RECORDS SUMMARY | 2025-06-07 13:05 | XMS_ITS | Encounter Summary ---
Author Organization [facility] Address [facility] [place] [address] Care Team Providers Care Build Technician Name Role Phone Jesus Camacho MD Unavailable [phone] Jesus Camacho MD Unavailable [phone] Jesus Camacho MD Primary Care Provider [phone] Source Comments In the event this information is protected by the Federal Confidentiality of Alcohol and Drug AbusePatient Records regulations: The Federal rules restrict any use of the information to criminally investigate or prosecute any alcohol or drug abuse patient.[facility] Encounter Details Date Type Department Care Team (Late st Contact Info) Description 03/19/2025 Get Medical Advice [facility] [address] [place] [id number] Jacky Pineda MD [address] [place] [address] Incision picture Social History Tobacco [...] risk 8 06/01/2023 Data from: https://www.neighborhoodatlas.medicine.[facility]/. Last address used for [...] 06/22/2025 2:20 PM EDT Office Visit Rheumatology [address] [place] [address] Zulema Mclean MD [address] [facility] [address] [place] [address] 6 month follow up documented as of this encounter Visit Diagnoses Not on filedocumented in this encounter Care Teams Build Technician Relationship Specialty Start Date End Date Jesus Camacho MD [address] [place] [address] PCP - General Family Medicine 05/12/23 Jesus Camacho MD Referring Family Medicine 01/14/21 Jesus Camacho MD [address] [place] [address] Referring Family Medicine 05/12/23 documented as of this encounter
--- OUTSIDE RECORDS SUMMARY | 2025-06-07 13:05 | XMS_ITS | Encounter Summary ---
Author Organization [facility] Address [address] [place] [address] Care Team Providers Care Motor Vehicle Examiner Name Role Phone Jesus Camacho MD Unavailable [phone] Jesus Camacho MD Unavailable [phone] Jesus Camacho MD Primary Care Provider [phone] Source Comments In the event this information is protected by the Federal Confidentiality of Alcohol and Drug AbusePatient Records regulations: The Federal rules restrict any use of the information to criminally investigate or prosecute any alcohol or drug abuse patient.[facility] Encounter Details Date Type Department Care Team (Late st Contact Info) Description 05/23/2024 Patient [facility] [place] [address] Sabina Carrillo RPh At your next appointment, choose [facility]. Social History Tobacco Use Types [...] is lower risk 8 06/01/2023 Data from: https://www.neighborhoodatlas.medicine.[facility]/. Last address used for calculation [address] [...] 06/22/2025 2:20 PM EDT Office Visit Rheumatology [address] [place] [address] Zulema Mclean MD [address] [facility] [address] [place] [address] 6 month follow up documented as of this encounter Visit Diagnoses Not on filedocumented in this encounter Care Teams Motor Vehicle Examiner Relationship Specialty Start Date End Date Jesus Camacho MD [address] [place] [address] PCP - General Family Medicine 05/12/23 Jesus Camacho MD Referring Family Medicine 01/14/21 Jesus Camacho MD [address] [place] [address] Referring Family Medicine 05/12/23 documented as of this encounter
--- OUTSIDE RECORDS SUMMARY | 2025-06-07 13:06 | XMS_ITS | Encounter Summary ---
Author Organization [facility] Address [address] [place] [address] Care Team Providers Care Hole Digger Operator Name Role Phone Jesus Camacho MD Unavailable [phone] Jesus Camacho MD Unavailable [phone] Jesus Camacho MD Primary Care Provider [phone] Source Comments In the event this information is protected by the Federal Confidentiality of Alcohol and Drug AbusePatient Records regulations: The Federal rules restrict any use of the information to criminally investigate or prosecute any alcohol or drug abuse patient.[facility] Encounter Details Date Type Department Care Team (Late st Contact Info) Description 02/27/2025 Patient Msg Neurology [address] [place] [address] Lisa Box, VENUS Social History [...] is lower risk 8 06/01/2023 Data from: https://www.neighborhoodatlas.medicine.[facility]/. Last address used for calculation [address] [...] 06/22/2025 2:20 PM EDT Office Visit Rheumatology [address] [place] [address] Zulema Mclean MD [address] [facility] [address] [place] [address] 6 month follow up documented as of this encounter Visit Diagnoses Not on filedocumented in this encounter Care Teams Hole Digger Operator Relationship Specialty Start Date End Date Jesus Camacho MD [address] [place] [address] PCP - General Family Medicine 05/12/23 Jesus Camacho MD Referring Family Medicine 01/14/21 Jesus Camacho MD [address] [place] [address] Referring Family Medicine 05/12/23 documented as of this encounter
--- OUTSIDE RECORDS SUMMARY | 2025-06-07 13:06 | XMS_ITS | Encounter Summary ---
Author Organization [facility] Address [address] [place] [address] Care Team Providers Care Media Center Director School Name Role Phone Jesus Camacho MD Unavailable [phone] Jesus Camacho MD Unavailable [phone] Jesus Camacho MD Primary Care Provider [phone] Source Comments In the event this information is protected by the Federal Confidentiality of Alcohol and Drug AbusePatient Records regulations: The Federal rules restrict any use of the information to criminally investigate or prosecute any alcohol or drug abuse patient.[facility] Encounter Details Date Type Department Care Team (Late st Contact Info) Description 02/03/2024 Cure Form [facility] [address] [place] [phone] Shakila Phillips, RN [address] [place] [address] Intracranial meningioma (HCC) (Primary Dx); Preop testing [...] lower risk 8 06/01/2023 Data from: https://www.neighborhoodatlas.medicine.[facility]/. Last address used for [...] 06/22/2025 2:20 PM EDT Office Visit Rheumatology [address] [place] [address] Zulema Mclean MD [address] [facility] [address] [place] [address] 6 month follow up Scheduled Orders Name Type Priority Associated Diagnoses Orde r Schedule REFER FOR ADMIT INTERVIEW Procedures Routine Intracranial meningioma (HCC) Preop testing Ordered: 02/03/2024 documented as of this encounter Visit Diagnoses Diagnosis Intracranial meningioma (HCC)- Primary Benign neoplasm of cerebral meninges Preop testing Preoperative examination, unspecified documented in this encounter Care Teams Media Center Director School Relationship Specialty Start Date End Date Jesus Camacho MD [address] [place] [address] PCP - General Family Medicine 05/12/23 Jesus Camacho MD Referring Family Medicine 01/14/21 Jesus Camacho MD [address] [place] [address] Referring Family Medicine 05/12/23 documented as of this encounter
--- OUTSIDE RECORDS SUMMARY | 2025-06-07 13:06 | XMS_ITS | Encounter Summary ---
Author Organization [facility] Address [facility] [place] [address] Care Team Providers Care Coat Fitter Name Role Phone Jesus Camacho MD Unavailable [phone] Jesus Camacho MD Unavailable [phone] Jesus Camacho MD Primary Care Provider [phone] Source Comments In the event this information is protected by the Federal Confidentiality of Alcohol and Drug AbusePatient Records regulations: The Federal rules restrict any use of the information to criminally investigate or prosecute any alcohol or drug abuse patient.[facility] Encounter Details Date Type Department Care Team (Late st Contact Info) Description 03/14/2024 Get Medical Advice [facility] [address] [place] [address] Jacky Pineda MD [address] [place] [address] Need to cancel Social History [...] lower risk 8 06/01/2023 Data from: https://www.neighborhoodatlas.medicine.[facility]/. Last address used for calculation [address] [facility] 06/01/2023 Comments No Sex and Gender [...] 06/22/2025 2:20 PM EDT Office Visit Rheumatology [address] [place] [address] Zulema Mclean MD [address] [facility] [address] [place] [address] 6 month follow up documented as of this encounter Visit Diagnoses Not on filedocumented in this encounter Care Teams Coat Fitter Relationship Specialty Start Date End Date Jesus Camacho MD [address] [place] [address] PCP - General Family Medicine 05/12/23 Jesus Camacho MD Referring Family Medicine 01/14/21 Jesus Camacho MD [address] [place] [address] Referring Family Medicine 05/12/23 documented as of this encounter
--- OUTSIDE RECORDS SUMMARY | 2025-06-07 13:06 | XMS_ITS | Encounter Summary ---
Author Organization [facility] Address [address] [place] [address] Care Team Providers Care Cloth Burler Name Role Phone Jesus Camacho MD Unavailable [phone] Jesus Camacho MD Unavailable [phone] Jesus Camacho MD Primary Care Provider [phone] Source Comments In the event this information [...] Advice [facility] [address] [place] [id number] Jacky Pineda MD [address] [place] [address] Antibiotic Social History Tobacco Use [...] is lower risk 8 06/01/2023 Data from: https://www.neighborhoodatlas.medicine.[facility]/. Last address used for calculation [...] 06/22/2025 2:20 PM EDT Office Visit Rheumatology [address] [place] [address] Zulema Mclean MD [address] [facility] [address] [place] [address] 6 month follow up documented as of this encounter Visit Diagnoses Not on filedocumented in this encounter Care Teams Cloth Burler Relationship Specialty Start Date End Date Jesus Camacho MD [address] [place] [address] PCP - General Family Medicine 05/12/23 Jesus Camacho MD Referring Family Medicine 01/14/21 Jesus Camacho MD [address] [place] [address] Referring Family Medicine 05/12/23 documented as of this encounter
--- OUTSIDE RECORDS SUMMARY | 2025-06-07 13:06 | XMS_ITS | Encounter Summary ---
Author Organization [facility] Address [facility] [place] [address] Care Team Providers Care Licensed Midwife Name Role Phone Jesus Camacho MD Unavailable [phone] Jesus Camacho MD Unavailable Jesus Camacho MD Primary Care Provider [phone] Source Comments In the event this information is protected by the Federal Confidentiality of Alcohol and Drug AbusePatient Records regulations: The Federal rules restrict any use of the information to criminally investigate or prosecute any alcohol or drug abuse patient.[facility] Encounter Details Date Type Department Care Team (Late st Contact Info) Description 12/01/2024 Get Medical Advice [facility] [address] [place] [address] Jacky Pineda MD [address] [place] [address] Surgery Social History Tobacco Use [...] risk 8 06/01/2023 Data from: https://www.neighborhoodatlas.medicine.[facility]/. Last address used for calculation [...] 06/22/2025 2:20 PM EDT Office Visit Rheumatology [address] [place] [address] Zulema Mclean MD [address] [facility] [address] [place] [address] 6 month follow up documented as of this encounter Visit Diagnoses Not on filedocumented in this encounter Care Teams Licensed Midwife Relationship Specialty Start Date End Date Jesus Camacho MD [address] [place] [address] PCP - General Family Medicine 05/12/23 Jesus Camacho MD Referring Family Medicine 01/14/21 Jesus Camacho MD [address] [place] [address] Referring Family Medicine 05/12/23 documented as of this encounter
--- OUTSIDE RECORDS SUMMARY | 2025-06-07 13:06 | XMS_ITS | Encounter Summary ---
Author Organization [facility] Address [facility] [place] [address] Care Team Providers Care Engine Testing Supervisor Name Role Phone Jesus Camacho MD Unavailable [phone] Jesus Camacho MD Unavailable [phone] Jesus Camacho MD Primary Care Provider [phone] Source Comments In the event this information is protected by the Federal Confidentiality of Alcohol and Drug AbusePatient Records regulations: The Federal rules restrict any use of the information to criminally investigate or prosecute any alcohol or drug abuse patient.[facility] Encounter Details Date Type Department Care Team (Late st Contact Info) Description 12/14/2024 Get Medical Advice [facility] [address] [place] [address] Jacky Pineda MD [address] [place] [address] MRI Social History Tobacco Use [...] risk 8 06/01/2023 Data from: https://www.neighborhoodatlas.medicine.[facility]/. Last address used for [...] 06/22/2025 2:20 PM EDT Office Visit Rheumatology [address] [place] [address] Zulema Mclean MD [address] [facility] [place] [address] 6 month follow up documented as of this encounter Visit Diagnoses Not on filedocumented in this encounter Care Teams Engine Testing Supervisor Relationship Specialty Start Date End Date Jesus Camacho MD [address] [place] [address] PCP - General Family Medicine 05/12/23 Jesus Camacho MD Referring Family Medicine 01/14/21 Jesus Camacho MD [address] [place] [address] Referring Family Medicine 05/12/23 documented as of this encounter
--- OUTSIDE RECORDS SUMMARY | 2025-06-07 13:06 | XMS_ITS | Clinical Summary ---
Author Organization [facility] Address [address] [place] [address] Care Team Providers Care Medical Assembler Name Role Phone Jesus Camacho MD Primary Care Provider [phone] Allergies No known active allergies Medications Brexpiprazole [...] 4 TIMES A DAY 3 Active Drug [place] Unilet Lancets 33G misc USE ONCE DAILY [...] MOUTH EVERY DAY WITH FOOD 4 Active predniSONE (Deltasone) 20 MG tabletIndicatio ns:Rib pain on right side Take 3 tabs for 2 days, 2 tabs for 2 days, 1 tab for 2 days, 1/2 tab for 2 days then stop 13 tablet 5 Active Hospital, Clinic, or Other Facility Administered Medication Ordered Dose Route Frequency Start Date End Date Status ketorolac (Toradol) injection 60 mgIndications:Fibromyalgia 60 mg IM Once 05/23/2025 5 Ended ketorolac (Toradol) injection 60 mgIndications:Rib pain on right side 60 mg IM Once 06/05/2025 06/05/2025 Ended Active Problems Problem Noted Date Diagnosed Date Rib pain on right side 03/25/2023 Bloating 03/25/2023 DM type 2 without retinopathy 03/24/2023 Fibromyalgia 03/24/2023 Myopia of both eyes 03/24/2023 Nuclear senile cataract 03/24/2023 Open angle with borderline findings, low risk, b ilateral 03/24/2023 Otitis externa 03/24/2023 Presbyopia 03/24/2023 Encounters Date Type Department Care Team Description 06/06/2025 Telephone [facility] [address] [place] [address] Lamar Rose NP 06/05/2025 6:15 PM EDT Ancillary Procedure [facility] [address] [place] [address] Rib pain on right side 06/05/2025 5:40 PM EDT Office Visit [facility] [address] [place] [address] Lamar Rose, PANDA Rib pain on right side (Primary Dx); Sprain of costal cartilage, initial encounter 06/05/2025 Travel 05/23/2025 1:20 PM EDT Office Visit [facility] [address] [place] [address] Sharon Wilburn, [place] Fibromyalgia 05/23/2025 Travel from Last 3 Months [...] (254 lb) 06/05/2025 5:46 PM EDT Height 165.1 cm (5' 5 ) 03/25/2023 10:35 AM EDT Body Mass Index 42.27 03/25/2023 10:35 AM EDT Plan of Treatment Health Maintenance Due Date Last Done Comments CT Colonography 1977 Colonoscopy 1977 Colorectal Cancer Screening 1977 FIT-DNA 1977 FIT 1977 FOBT 1977 Sigmoidoscopy 1977 Pap Smear 1998 Cervical Cancer Screening 2007 HPV/Cotest 2007 Mammogram 2017 Influenza Vaccine (#1) 2025 , 07/12/2021, 07/04/2020, Additional history exists Procedures Procedure Name Priority Date/Time Associated Diagnosis Comments XR RIBS 2 VIEWS RIGHT WITH CHEST ANTEROPOSTERIOR STAT 06/05/2025 6:23 PM EDT Rib pain on right side from Last 3 Months Results * XR ribs 2 views right [...] SIGNED BY: Sylvester Triplett MD Lamar Rose [place] [place] [facility] XR PROCEDURES Final Resu lt from Last 3 Months Insurance MEDICARE [place] MEDICARE ADVANTAGE MEDICAID [place] Care Teams Medical Assembler Relationship Specialty Start Date End Date Jesus Camacho MD PCP - General Family Medicine 03/12/23
--- OUTSIDE RECORDS SUMMARY | 2025-06-07 13:06 | XMS_ITS | Encounter Summary ---
Author Organization [facility] Address [facility] [place] [address] Care Team Providers Care Pediatric Physical Therapy Assistant Name Role Phone Jesus Camacho MD Unavailable [phone] Jesus Camacho MD Unavailable [phone] Jesus Camacho MD Primary Care Provider [phone] Source Comments In the event this information is protected by the Federal Confidentiality of Alcohol and Drug AbusePatient Records regulations: The Federal rules restrict any use of the information to criminally investigate or prosecute any alcohol or drug abuse patient.[facility] Encounter Details Date Type Department Care Team (Late st Contact Info) Description 10/08/2023 Get Medical Advice [facility] [address] [place] [address] Jacky Pineda MD [address] [place] [address] Eye problems Social History Tobacco [...] risk 8 06/01/2023 Data from: https://www.neighborhoodatlas.medicine.[facility]/. Last address used for calculation [address] [...] 06/22/2025 2:20 PM EDT Office Visit Rheumatology [address] [place] [address] Zulema Mclean MD [address] [address] [facility] [place] [address] 6 month follow up documented as of this encounter Visit Diagnoses Not on filedocumented in this encounter Care Teams Pediatric Physical Therapy Assistant Relationship Specialty Start Date End Date Jesus Camacho MD [address] [place] [address] PCP - General Family Medicine 05/12/23 Jesus Camacho MD Referring Family Medicine 01/14/21 Jesus Camacho MD [address] [place] [address] Referring Family Medicine 05/12/23 documented as of this encounter
--- OUTSIDE RECORDS SUMMARY | 2025-06-07 13:06 | XMS_ITS | Encounter Summary ---
Author Organization [facility] Address [address] [place] [address] Care Team Providers Care Furniture Refinisher Name Role Phone Jesus Camacho MD Unavailable Jesus Camacho MD Unavailable [phone] Jesus Camacho MD Primary Care Provider [phone] Source Comments In the event this information is protected by the Federal Confidentiality of Alcohol and Drug AbusePatient Records regulations: The Federal rules restrict any use of the information to criminally investigate or prosecute any alcohol or drug abuse patient.[facility] Encounter Details Date Type Department Care Team (Late st Contact Info) Description 11/30/2023 Patient Msg Rheumatology [address] [place] [address] Provider, [facility] Eye exam Social [...] is lower risk 8 06/01/2023 Data from: https://www.neighborhoodatlas.medicine.[facility]/. Last address used for calculation [address] 06/01/2023 Comments No Sex and Gender [...] 06/22/2025 2:20 PM EDT Office Visit Rheumatology [address] [place] [address] Zulema Mclean MD [address] [facility] [address] [place] [address] 6 month follow up documented as of this encounter Visit Diagnoses Not on filedocumented in this encounter Care Teams Furniture Refinisher Relationship Specialty Start Date End Date Jesus Camacho MD [address] [place] [address] PCP - General Family Medicine 05/12/23 Jesus Camacho MD Referring Family Medicine 01/14/21 Jesus Camacho MD [address] [place] [address] Referring Family Medicine 05/12/23 documented as of this encounter
--- OUTSIDE RECORDS SUMMARY | 2025-06-07 13:06 | XMS_ITS | Encounter Summary ---
Author Organization [facility] Address [address] [place] [address] Care Team Providers Care Swimming Coach Name Role Phone Jesus Camacho MD Unavailable [phone] Jesus Camacho MD Unavailable [phone] Jesus Camacho MD Primary Care Provider [phone] Source Comments In the event this information is protected by the Federal Confidentiality of Alcohol and Drug AbusePatient Records regulations: The Federal rules restrict any use of the information to criminally investigate or prosecute any alcohol or drug abuse patient.[facility] Encounter Details Date Type Department Care Team (Late st Contact Info) Description 12/05/2024 Patient Msg [facility] [address] [place] [address] Provider, Ccf Today's Phone Call - Vision [...] is lower risk 8 06/01/2023 Data from: https://www.neighborhoodatlas.medicine.[facility]/. Last address used [...] 06/22/2025 2:20 PM EDT Office Visit Rheumatology [address] [place] [address] Zulema Mclean MD [address] [address] [place] [address] 6 month follow up documented as of this encounter Visit Diagnoses Not on filedocumented in this encounter Care Teams Swimming Coach Relationship Specialty Start Date End Date Jesus Camacho MD [address] [place] [address] PCP - General Family Medicine 05/12/23 Jesus Camacho MD Referring Family Medicine 01/14/21 Jesus Camacho MD [address] [place] [address] Referring Family Medicine 05/12/23 documented as of this encounter
--- OUTSIDE RECORDS SUMMARY | 2025-06-07 13:06 | XMS_ITS | Encounter Summary ---
Author Organization [facility] Address [address] [place] [address] Care Team Providers Care Stitchdown Thread Laster Name Role Phone Jesus Camacho MD Unavailable [phone] Jesus Camacho MD Unavailable [phone] Jesus Camacho MD Primary Care Provider [phone] Source Comments In the event this information is protected by the Federal Confidentiality of Alcohol and Drug AbusePatient Records regulations: The Federal rules restrict any use of the information to criminally investigate or prosecute any alcohol or drug abuse patient.[facility] Encounter Details Date Type Department Care Team (Late st Contact Info) Description 03/08/2025 Get Medical Advice Neurology Headache [facility] [address] [place] [address] Rachele Fenton, MARILEE.FLORIST SUPPLIES SALESPERSON [address] [place] [address] Nortriptalyne Social History Tobacco Use [...] lower risk 8 06/01/2023 Data from: https://www.neighborhoodatlas.medicine.[facility]/. Last address used [...] 06/22/2025 2:20 PM EDT Office Visit Rheumatology [address] [place] [address] Zulema Mclean MD [address] [place] [address] 6 month follow up documented as of this encounter Visit Diagnoses Not on filedocumented in this encounter Care Teams Stitchdown Thread Laster Relationship Specialty Start Date End Date Jesus Camacho MD [address] [place] [address] PCP - General Family Medicine 05/12/23 Jesus Camacho MD Referring Family Medicine 01/14/21 Jesus Camacho MD [address] [place] [address] Referring Family Medicine 05/12/23 documented as of this encounter
--- OUTSIDE RECORDS SUMMARY | 2025-06-07 13:06 | XMS_ITS | Encounter Summary ---
Author Organization [facility] Address [facility] [place] [address] Care Team Providers Care Diver Helper Name Role Phone Jesus Camacho MD Unavailable [phone] Jesus Camacho MD Unavailable [phone] Jesus Camacho MD Primary Care Provider [phone] Source Comments In the event this information is protected by the Federal Confidentiality of Alcohol and Drug AbusePatient Records regulations: The Federal rules restrict any use of the information to criminally investigate or prosecute any alcohol or drug abuse patient.[facility] Encounter Details Date Type Department Care Team (Late st Contact Info) Description 02/07/2024 Get Medical Advice [facility] [address] [place] [address] Jacky Pineda MD [address] [place] [address] Appointments Social History Tobacco Use [...] is lower risk 8 06/01/2023 Data from: https://www.neighborhoodatlas.medicine.[facility]/. Last address used for [...] 06/22/2025 2:20 PM EDT Office Visit Rheumatology [address] [place] [address] Zulema Mclean MD [address] [facility] [address] [place] [address] 6 month follow up documented as of this encounter Visit Diagnoses Not on filedocumented in this encounter Care Teams Diver Helper Relationship Specialty Start Date End Date Jesus Camacho MD [address] [place] [address] PCP - General Family Medicine 05/12/23 Jesus Camacho MD Referring Family Medicine 01/14/21 Jesus Camacho MD [address] [place] [address] Referring Family Medicine 05/12/23 documented as of this encounter
--- OUTSIDE RECORDS SUMMARY | 2025-06-07 13:06 | XMS_ITS | Encounter Summary ---
Author Organization [facility] Address [facility] [place] [address] Care Team Providers Care Professor Of Spanish Name Role Phone Jesus Camacho MD Unavailable [phone] Jesus Camacho MD Unavailable [phone] Jesus Camacho MD Primary Care Provider [phone] Source Comments In the event this information is protected by the Federal Confidentiality of Alcohol and Drug AbusePatient Records regulations: The Federal rules restrict any use of the information to criminally investigate or prosecute any alcohol or drug abuse patient.[facility] Encounter Details Date Type Department Care Team (Late st Contact Info) Description 12/09/2024 Get Medical Advice [facility] [address] [place] [id number] Jacky Pineda MD [address] [place] [address] Kourtney Novak Social History Tobacco [...] is lower risk 8 06/01/2023 Data from: https://www.neighborhoodatlas.medicine.[facility]/. Last address used for calculation [address] [facility] [address] [facility] 06/01/2023 Comments No Sex and Gender [...] 06/22/2025 2:20 PM EDT Office Visit Rheumatology [address] [place] [address] Zulema Mclean MD [address] [address] [facility] [place] [address] 6 month follow up documented as of this encounter Visit Diagnoses Not on filedocumented in this encounter Care Teams Professor Of Spanish Relationship Specialty Start Date End Date Jesus Camacho MD [address] [place] [address] PCP - General Family Medicine 05/12/23 Jesus Camacho MD Referring Family Medicine 01/14/21 Jesus Camacho MD [address] [place] [address] Referring Family Medicine 05/12/23 documented as of this encounter
--- OUTSIDE RECORDS SUMMARY | 2025-06-07 13:06 | XMS_ITS | Encounter Summary ---
Author Organization [facility] Address [address] [place] [address] Care Team Providers Care Metals Analyst Name Role Phone Jesus Camacho MD Unavailable [phone] Jesus Camacho MD Unavailable [phone] Jesus Camacho MD Primary Care Provider [phone] Source Comments In the event this information is protected by the Federal Confidentiality of Alcohol and Drug AbusePatient Records regulations: The Federal rules restrict any use of the information to criminally investigate or prosecute any alcohol or drug abuse patient.[facility] Encounter Details Date Type Department Care Team (Late st Contact Info) Description 01/13/2025 Get Medical Advice [facility] [address] [place] [address] Jacky Pineda MD [address] [place] [address] Surgery question Social History Tobacco [...] is lower risk 8 06/01/2023 Data from: https://www.neighborhoodatlas.medicine.[facility]/. Last [facility] used for calculation [address] [facility]/01/[facility] Comments No Sex and [...] 06/22/2025 2:20 PM EDT Office Visit Rheumatology [address] [place] [address] Zulema Mclean MD [address] [facility] [place] [address] 6 month follow up documented as of this encounter Visit Diagnoses Not on filedocumented in this encounter Care Teams Metals Analyst Relationship Specialty Start Date End Date Jesus Camacho MD [address] [place] [address] PCP - General Family Medicine 05/12/23 Jesus Camacho MD Referring Family Medicine 01/14/21 Jesus Camacho MD [address] [place] [address] Referring Family Medicine 05/12/23 documented as of this encounter
--- OUTSIDE RECORDS SUMMARY | 2025-06-07 13:06 | XMS_ITS | Encounter Summary ---
Author Organization [facility] Address [facility] [place] [address] Care Team Providers Care Sports Internship Name Role Phone Jesus Camacho MD Unavailable [phone] Jesus Camacho MD Unavailable [phone] Jesus Camacho MD Primary Care Provider [phone] Source Comments In the event this information is protected by the Federal Confidentiality of Alcohol and Drug AbusePatient Records regulations: The Federal rules restrict any use of the information to criminally investigate or prosecute any alcohol or drug abuse patient.[facility] Encounter Details Date Type Department Care Team (Late st Contact Info) Description 01/31/2024 Get Medical Advice [facility] [address] [place] [address] Jacky Pineda MD [address] [place] [address] MRI Social History Tobacco Use [...] risk 8 06/01/2023 Data from: https://www.neighborhoodatlas.medicine.[facility]/. Last address [...] 06/22/2025 2:20 PM EDT Office Visit Rheumatology [address] [place] [address] Zulema Mclean MD [address] [facility] [address] [place] [address] 6 month follow up documented as of this encounter Visit Diagnoses Not on filedocumented in this encounter Care Teams Sports Internship Relationship Specialty Start Date End Date Jesus Camacho MD [address] [place] [address] PCP - General Family Medicine 05/12/23 Jesus Camacho MD Referring Family Medicine 01/14/21 Jesus Camacho MD [address] [place] [address] Referring Family Medicine 05/12/23 documented as of this encounter
--- OUTSIDE RECORDS SUMMARY | 2025-06-07 13:06 | XMS_ITS | Encounter Summary ---
Author Organization [facility] Address [address] [place], [place] [address] Care Team Providers Care Wooden Frame Builder Name Role Phone Jesus Camacho MD Unavailable [phone] Jesus Camacho MD Unavailable [phone] Jesus Camacho MD Primary Care Provider [phone] Source Comments In the event this information is protected by the Federal Confidentiality of Alcohol and Drug AbusePatient Records regulations: The Federal rules restrict any use of the information to criminally investigate or prosecute any alcohol or drug abuse patient.[facility] Reason for Referral * Consult, Test, Treat (Routine) - Closed Specialty Diagnoses / Procedures Referred By Contrahul t Referred To Contact Diagnoses Intracranial meningioma (HCC) Preop testing Procedures OFFICE/OUTPATIENT NEW HIGH MDM 60 MINUTES Jacky Pineda MD [address] [place] [address] Phone: tel: fax: Referral ID Status Reason Start Date Expiration Date V isits Requested Visits Authorized [id number] Closed PCP Requested Referral 01/13/2025 01/13/2026 1 1 * MRI/CT (Routine) - Closed Specialty Diagnoses / Procedures Referred By Tati gonzalez Referred To Contact MR IMAGING Diagnoses Intracranial meningioma (HCC) Preop testing Procedures MRI BRAIN WO/W IVCON MRI BRAIN BRAIN STEM W/O W/CONTRAST MATERIAL Jacky Pineda MD [address] [place] [address] Phone: tel: fax: MR IMAGING [place] [address] Referral ID Status Reason Start Date Expiration Date V isits Requested Visits Authorized [id number] Closed Auto-Generate d Referral 02/10/2025 09/13/2025 1 1 Encounter Details Date Type Department Care Team (Late st Contact Info) Description 01/13/2025 Cure Form [facility] [address] [place] [id number] Shakila Phillips, RN [address] [place] [address] Intracranial meningioma (HCC) (Primary Dx); Preop testing [...] is lower risk 8 06/01/2023 Data from: https://www.neighborhoodatlas.medicine.[facility]/. Last address used for calculation [address] [...] 06/22/2025 2:20 PM EDT Office Visit Rheumatology [address] [place] [address] Zulema Mclean MD [address] [place] [address] 6 month follow up Scheduled Orders Name [...] exam in November 2015. No acute abnormalities. Labor Utilization Superintendent: PSCB Transcribe Date/Time: Feb 14 2025 10:01A Dictated by : SEAN BLOCK MD This examination was interpreted and the report reviewed and electronically signed by: SEAN BLOCK MD on Feb 14 2025 10:22AM EST Narrative 02/14/2025 10:37 AM EDT * * *Final Report* * * DATE OF EXAM: Feb 14 2025 10:37AM [facility] 0295 - MRI BRAIN WO/W IVCON / [...] tissue mass extending into the of the peoplesoft developer or parapharyngeal spaces. The soft tissue planes of the, retropharyngeal, and prevertebral spaces are maintained. The visualized parotid glands are normal in appearance. Nasopharynx/Oropharynx: The nasopharynx and oropharynx are normal in appearance. Procedure Note Provider, [facility] - 02/14/2025 * * *Final Report* * * DATE OF EXAM: Feb 14 2025 10:37AM [facility] 0295 - MRI BRAIN WO/W IVCON / [...] tissue mass extending into the of the peoplesoft developer or parapharyngeal spaces. The soft tissue planes [...] exam in November 2015. No acute abnormalities. Labor Utilization Superintendent: GUANACO Transcribe Date/Time: Feb 14 2025 10:01A [...] CEPHEID GENEXPERT COVID19 02/14/2025 10:17 PM EDT [facility] Swab POSTERIOR NARES / Unknown Non Blood / Unknown 02/14/2025 8:19 AM EDT 02/14/2025 8:20 AM EDT Jacky Pineda MD LABORATORY Final Result Performing Organization Address [facility] Co de Phone Number [facility] [address] [place] [address], * TYPE AND SCREEN,30 DAY (02/14/2025 8:19 [...] BLOOD BANK Final Result Performing Organization Address City/[facility] Co de Phone Number [facility]IN BLOOD [facility]ANK [address] [place] [address], [place] documented in this encounter Visit Diagnoses Diagnosis Intracranial meningioma (HCC)- Primary Benign neoplasm of cerebral meninges Preop testing Preoperative examination, unspecified Intracranial meningioma (HCC) Benign neoplasm of cerebral meninges Preop testing Preoperative examination, unspecified documented in this encounter Care Teams Wooden Frame Builder Relationship Specialty Start Date End Date Jesus Camacho MD [address] [place] [address] PCP - General Family Medicine 05/12/23 Jesus Camacho MD Referring Family Medicine 01/14/21 Jesus Camacho MD [address] [place] [address] Referring Family Medicine 05/12/23 documented as of this encounter
--- OUTSIDE RECORDS SUMMARY | 2025-06-07 13:06 | XMS_ITS | Encounter Summary ---
Author Organization [facility] Address [address] [place] [address] Care Team Providers Care Glaze Carrier Name Role Phone Jesus Camacho MD Primary Care Provider [phone] Encounter Details Date Type Department Care Team (Late st Contact Info) Description 06/06/2025 Telephone [facility] Medicine [address] [place] [id number] Lamar Rose NP [address] [place], [place] [id number] Social History Tobacco Use Types Packs/Day Years [...] on file documented as of this encounter Miscellaneous Notes * Telephone Encounter - Lamar Rose NP - 06/06/2025 9:25 AM EDT Please notify patient that x ray final read states chronic appearing right 6th and 7th rib deformities. Lungs are WNL. Follow up with PCP if not improving. Thanks. RESULT: No consolidation, pleural effusion, or pneumothorax. Normal cardiomediastinal silhouette. Chronic appearing right sixth and seventh rib deformities. No distinct acute displaced rib fracture. Degenerative changes. Mild S-shaped scoliosis in the spine. Surgical clips projecting over the right upper hemithorax. IMPRESSION: Chronic appearing right sixth and seventh rib deformities. No distinct acute displaced rib fracture. documented in this encounter Plan of Treatment Not on file documented as of this encounter Visit Diagnoses Not on filedocumented in this encounter Care Teams Glaze Carrier Relationship Specialty Start Date End Date Jesus Camacho MD PCP - General Family Medicine 03/12/23 documented as of this encounter
--- OUTSIDE RECORDS SUMMARY | 2025-06-07 13:06 | XMS_ITS | Encounter Summary ---
Author Organization [facility] Address [address] [place] [address] Care Team Providers Care Education Dean Name Role Phone Jesus Camacho MD Unavailable [phone] Jesus Camacho MD Unavailable [phone] Jesus Camacho MD Primary Care Provider [phone] Source Comments In the event this information is protected by the Federal Confidentiality of Alcohol and Drug AbusePatient Records regulations: The Federal rules restrict any use of the information to criminally investigate or prosecute any alcohol or drug abuse patient.[facility] Encounter Details Date Type Department Care Team (Late st Contact Info) Description 01/19/2025 Patient Msg Spine [place] [address] [place] [address] Provider, Ccf Pre Surgery appointments [...] is lower risk 8 06/01/2023 Data from: https://www.neighborhoodatlas.medicine.[facility].edu/. Last address used for calculation [...] 06/22/2025 2:20 PM EDT Office Visit Rheumatology [address] [place] [address] Zulema Mclean MD [address] [facility] [address] [place] [address] 6 month follow up documented as of this encounter Visit Diagnoses Not on filedocumented in this encounter Care Teams Education Dean Relationship Specialty Start Date End Date Jesus Camacho MD [address] [place] [address] PCP - General Family Medicine 05/12/23 Jesus Camacho MD Referring Family Medicine 01/14/21 Jesus Camacho MD [address] [place] [address] Referring Family Medicine 05/12/23 documented as of this encounter
--- OUTSIDE RECORDS SUMMARY | 2025-06-07 13:06 | XMS_ITS | Clinical Summary ---
Author Organization [facility] Address [address] [facility] [place] [address] Care Team Providers Care Bisque Placer Name Role Phone Unavailable Primary Care Provider Unavailabl e Source Comments The following information is NOT included in Care Everywhere downloads:Psychiatric notes, ECG results, Cardiac Rehab notes, Pulmonary Function notes, data from [employer] (includes but not limited toPregnancy data,audiograms, eye exams, pre-surgical evaluation notes, well-child exam data).[facility] Active Problems Problem Noted Date [...] patient's age to complete this topic Insurance [facility]
--- OUTSIDE RECORDS SUMMARY | 2025-06-07 13:06 | XMS_ITS | Encounter Summary ---
Author Organization [facility] Address [address] [place] [address] Care Team Providers Care Application Systems Architect Name Role Phone Jesus Camacho MD Unavailable Jesus Camacho MD Unavailable [phone] Jesus Camacho MD Primary Care Provider [phone] Source Comments In the event this information is protected by the Federal Confidentiality of Alcohol and Drug AbusePatient Records regulations: The Federal rules restrict any use of the information to criminally investigate or prosecute any alcohol or drug abuse patient.[facility] Reason for Visit * Reason Comments Refill Request Encounter Details Date Type Department Care Team (Late st Contact Info) Description 05/15/2025 Refill Rheumatology [address] [place] [address] Zulema Mclean MD [address] [facility] [address] [place] [address] Refill Request Social History Tobacco [...] risk 8 06/01/2023 Data from: https://www.neighborhoodatlas.medicine.[facility]/. Last address used [...] Visit Type Date Time Department [facility] MED[facility] 06/22/2025 2:20 PM RHEU [facility] Last Ophthalmology Check for Plaquenil (Hydroxychloroquine) [...] 3 months 10/10/25 10/10/24 02/14/25 Auth. provider: Zulmea Mclean MD Assoc. diagnoses: Encounter for medication monitoring Open Future (Single Instance) Lab Orders None documented in this encounter Plan of Treatment Upcoming Encounters Date Type Department Care Team (Late st Contact Info) Description 06/22/2025 2:20 PM EDT Office Visit Rheumatology [address] [place] [address] Zulema Mclean MD [address] [place] [address] 6 month follow up documented as of this encounter Visit Diagnoses Diagnosis Fibromyalgia Mylagia and myositis, unspecified documented in this encounter Care Teams Application Systems Architect Relationship Specialty Start Date End Date Jesus Camacho MD [address] [place] [address] PCP - General Family Medicine 05/12/23 Jesus Camacho MD Referring Family Medicine 01/14/21 Jesus Camacho MD [address] [place] [address] Referring Family Medicine 05/12/23 documented as of this encounter
--- OUTSIDE RECORDS SUMMARY | 2025-06-07 13:06 | XMS_ITS | Encounter Summary ---
Author Organization [facility] Address [address] [place] [address] Care Team Providers Care Dry Cell Sealer Name Role Phone Jesus Camacho MD Unavailable [phone] Jesus Camacho MD Unavailable [phone] Jesus Camacho MD Primary Care Provider [phone] Source Comments In the event this information is protected by the Federal Confidentiality of Alcohol and Drug AbusePatient Records regulations: The Federal rules restrict any use of the information to criminally investigate or prosecute any alcohol or drug abuse patient.[facility] Encounter Details Date Type Department Care Team (Late st Contact Info) Description 02/09/2024 Get Medical Advice Neurology Headache [facility] [address] [place] [address] Rachele Fenton, MARILEE.BASKETBALL COMMENTATOR [address] [place] [address] Medicine Social History Tobacco Use [...] Data from: https://www.neighborhoodatlas.medicine.[facility]/. Last address used for calculation [address] [facility] 06/01/2023 Comments No Sex and Gender [...] 06/22/2025 2:20 PM EDT Office Visit Rheumatology [address] [place] [address] Zulema Mclean MD [address] [facility] [address] [place] [address] 6 month follow up documented as of this encounter Visit Diagnoses Not on filedocumented in this encounter Care Teams Dry Cell Sealer Relationship Specialty Start Date End Date Jesus Camacho MD [address] [place] [address] PCP - General Family Medicine 05/12/23 Jesus Camacho MD Referring Family Medicine 01/14/21 Jesus Camacho MD [address] [place] [address] Referring Family Medicine 05/12/23 documented as of this encounter
--- OUTSIDE RECORDS SUMMARY | 2025-06-07 13:06 | XMS_ITS | Encounter Summary ---
Author Organization [facility] Address [address] [place] [address] Care Team Providers Care Photograph Editor Name Role Phone Jesus Camacho MD Primary Care Provider [phone] Encounter Details Date Type Department Care Team (Latest Contact Info) Description 06/05/2025 Travel Social History Tobacco Use Types Packs/Day [...] on filedocumented in this encounter Care Teams Photograph Editor Relationship Specialty Start Date End Date Jesus Camacho MD PCP - General Family Medicine 03/12/23 documented as of this encounter
--- OUTSIDE RECORDS SUMMARY | 2025-06-07 13:06 | XMS_ITS | Encounter Summary ---
Author Organization [facility] Address [address] [place] [address] Care Team Providers Care Casing Soaker Name Role Phone Jesus Camacho MD Unavailable [phone] Jesus Camacho MD Unavailable Jesus Camacho MD Primary Care Provider [phone] Source Comments In the event this information is protected by the Federal Confidentiality of Alcohol and Drug AbusePatient Records regulations: The Federal rules restrict any use of the information to criminally investigate or prosecute any alcohol or drug abuse patient.[facility] Encounter Details Date Type Department Care Team (Late st Contact Info) Description 11/30/2023 Patient Msg [facility] [address] [place] [address] Laron Lou DO, PhD [address] [facility] [address] [place] [address] Appointment Request Social History Tobacco [...] 06/01/2023 Data from: https://www.neighborhoodatlas.medicine.[facility]/. Last address used for calculation [address] [facility] 06/01/2023 Comments No Sex and [...] 06/22/2025 2:20 PM EDT Office Visit Rheumatology [address] [place] [address] Zulema Mlcean MD [address] [facility] [address] [place] [address] 6 month follow up documented as of this encounter Visit Diagnoses Not on filedocumented in this encounter Care Teams Casing Soaker Relationship Specialty Start Date End Date Jesus Camacho MD [address] [place] [address] PCP - General Family Medicine 05/12/23 Jesus Camacho MD Referring Family Medicine 01/14/21 Jesus Camacho MD [address] [place] [address] Referring Family Medicine 05/12/23 documented as of this encounter
--- OUTSIDE RECORDS SUMMARY | 2025-06-07 13:06 | XMS_ITS | Clinical Summary ---
Author Organization [facility] Address [address] [place], [place] [address] Care Team Providers Care Riffler Tender Name Role Phone Jesus Camacho MD Unavailable [phone] Jesus Camacho MD Unavailable [phone] Jesus Camacho MD Primary Care Provider [phone] Allergies No known active allergies Medications benzonatate [...] treating with decadron 8bid (SSI, PPI) with detention taper plan off over 1 week At [...] Care Team Description 05/17/2025 Refill Neurology Headache [facility] [address] [place] [address] Rachele Fenton, VEHICLE ASSEMBLY INSPECTOR.NUTRITION INSTRUCTOR Refill Request 05/15/2025 Refill Rheumatology [address] [place] [address] Zulema Mclean MD Refill Request 04/25/2025 Refill Rheumatology [address] [place] [address] Zulema Mclean MD Refill Request 04/12/2025 7:00 AM EDT [facility] Neurology [address] [place] [address] Rachele Fenton, VEHICLE ASSEMBLY INSPECTOR.NUTRITION INSTRUCTOR Meningioma (HCC) (Primary Dx); Chronic daily headache 04/01/2025 Get Medical Advice [facility] [address] [place] [address] Jacky Pineda MD Incision 03/29/2025 10:30 AM EDT [facility] [place] [address] Jacky Pineda MD Intracranial meningioma (HCC) (Primary Dx); Postprocedural state; Dizziness and giddiness 03/26/2025 Get Medical Advice [facility] [place] [address] Jacky Pineda MD Incision 03/20/2025 Get Medical Advice [facility] [place] [address] Jacky Pineda MD Antibiotic 03/20/2025 Refill [facility] [address] [place] [address] Donna Patton MD Refill Request 03/19/2025 [place] [address] Jacky Pineda MD Incision picture 03/15/2025 12:00 [place] [address] S/P craniotomy (Primary Dx) 03/15/2025 Refill [facility] [address] [place], [place] [address] Donna Patton MD Refill Request 03/15/2025 Travel 03/13/2025 Results Follow-Up Rheumatology [address] [place] [address] Zulema Mclean MD 03/12/2025 Refill Neurology Headache [facility] [address] [place] [address] Rachele Fenton, MARILEE.NUTRITION INSTRUCTOR Refill Request 03/08/2025 Telephone [facility] [place] [address] Shakila Phillips RN Surgical Followup 03/08/2025 Get Medical Advice Neurology Headache [facility] [address] [place] [address] Rachele Fenton APRN.NUTRITION INSTRUCTOR Nortriptalyne from Last 3 Months Family History Medical [...] 8 06/01/2023 Data from: https://www.neighborhoodatlas.medicine.[facility]/. Last address used for calculation [address] [facility] 06/01/2023 Comments No Sex and Gender Information [...] 06/22/2025 2:20 PM EDT Office Visit Rheumatology [address] [place] [address] Zulema Mclean MD [address] [place], [place] [address] 6 month follow up Health Maintenance Due [...] 03/04/2021, 006 Medical Devices Implanted Type Area Belt Loop Machine Operator Device Identifier Shelf Expiration Date Model / Serial / Lot Patch Duramatrix-Onla y Plus Collagen 2x2in Dural Regeneration Membrane - [id number] Implanted:Qty: 1 on 02/20/2025 by Jacky Pineda MD at [facility] Patch Right: Head - Cranial JAYNE NEUR 01/11/2027 [id number] / / [id number] 2 Plate Bone 8 Hole Profile - [id number] Implanted:Qty: 1 on 02/20/2025 at [facility] Plate Right: Head - Cranial STRY-HOWM CRANIOMAXILLOFACIAL [id number] / / Plate 3d Large Box Low Profile Titanium Bone 2x2 Hole 1.5mm Screw - [id number] Implanted:Qty: 1 on 02/20/2025 at [facility] Plate Right: Head - Cranial STRY-HOWM CRANIOMAXILLOFACIAL [id number] / / Plate Low Profile Titanium 12mm Bone 2 Hole Bar 1.5mm Screw Nonsterile - [id number] Implanted:Qty: 2 on 02/20/2025 at [facility] Plate Right: Head - Cranial STRY-HOWM CRANIOMAXILLOFACIAL [id number] / / Cover 10mm Medium Titanium Aline Hole Low Profile Tab 1.5mm Screws - [id number] Implanted:Qty: 1 on 02/20/2025 at [facility] Plate Right: Head - Cranial STRY-HOWM CRANIOMAXILLOFACIAL [id number] / / Screw Bone Bartlett [employer] 3 4mm 1.5mm Self Drill Axial Stability Latex - [id number] Implanted:Qty: 11 on 02/20/2025 at [facility] Screw Right: Head - Cranial STRY-HOWM CRANIOMAXILLOFACIAL [id number] / / Bartlett Neuro Axs Neuro Screw Disc Pre-Loaded 1.5mm X 4mm Implanted:Qty: 17 on 02/20/2025 at [facility] Screw Right: Head - Cranial JAYNE [id number] / / Procedures Procedure Name Priority Date/Time [...] % 02/16/2025 6:33 AM EDT [facility] Comment:[place] Diabetes As sociation guidelines indicate that patients with HgbA1c in the range 5.7-6.4% are at increased risk for development of diabetes, and intervention by lifestyle modification may be beneficial. HgbA1c greater or equal to 6.5% is considered diagnostic of diabetes. Estimated Average Glucose 108 mg/dL 02/16/2025 6:33 AM EDT [facility] Comment:eAG: (Estimated aver age glucose) is a calculated value from HgbA1c and is financial foundations representative of the average blood glucose level in the last 2-3 month period. Blood BLOOD SPECIMEN / Unknown Venipuncture / Unknown 02/15/2025 12:56 PM EDT 02/15/2025 12:56 PM EDT Marli Martin VEHICLE ASSEMBLY INSPECTOR.NUTRITION INSTRUCTOR LABORATORY Final Res ult Performing Organization Address City/[facility]/ZIP Co de Phone Number [facility] [address] [facility] [place] [address], * HEP REMOTE PANEL BL (03/04/2021 1:39 PM EDT) Pathologist [facility] Hep B Core Ab, Total Negative Negative 03/04/2021 6:54 PM EDT [facility] Hep C Antibody IA Negative Negative 03/04/2021 6:55 PM EDT [facility] HBsAg Negative Negative 03/04/2021 6:54 PM EDT [facility] Hep B Surface Ab, Qual Negative Negative 03/04/2021 6:55 PM EDT [facility] Comment:NEGATIVE Blood 03/04/2021 1:39 PM EDT 03/04/2021 1:41 PM EDT Zulema Mclean MD LABORATORY Final Result Performing Organization Address City/[facility]/ZIP Co de Phone Number [facility] [address] [place] [address] [facility] [address] [place] [address] * HIV AB 1&2 SCREEN (01/05/2006 3:17 PM EDT) HIV 1 & 2 Ab (EIA) Non Reactive NR [facility] Comment: If results are indeterminate or otherwise inconsistent with an individual's clinical presentation or risk profile for HIV infection a repeat specimen is requested. A repeat specimen is also recommended for any individual identified positive for the first time. 01/05/2006 3:17 PM EDT Wade Shauna Farida LABORATORY Final Result [facility] [address] [place] [address] from Last 3 Months or Most Recently Relevant to Health Maintenance Insurance [place]ICAID [place] [employer] MEDICARE ADVANTAGE O Care Teams Riffler Tender Relationship Specialty Start Date End Date Jesus Camacho MD [address] [place] [address] PCP - General Family Medicine 05/12/23 Jesus Camacho MD Referring Family Medicine 01/14/21 Jesus Camacho MD [address] [place] [address] Referring Family Medicine 05/12/23
--- OUTSIDE RECORDS SUMMARY | 2025-06-07 13:06 | XMS_ITS | Encounter Summary ---
Author Organization [facility] Address [address] [place] [address] Care Team Providers Care Tiler Name Role Phone Jesus Camacho MD Unavailable [phone] Jesus Camacho MD Unavailable [phone] Jesus Camacho MD Primary Care Provider [phone] Source Comments In the event this information is protected by the Federal Confidentiality of Alcohol and Drug AbusePatient Records regulations: The Federal rules restrict any use of the information to criminally investigate or prosecute any alcohol or drug abuse patient.[facility] Encounter Details Date Type Department Care Team (Late st Contact Info) Description 12/11/2024 Get Medical Advice Neurology Headache [facility] [address] [place] [address] Rachele Fenton, MARILEE.TRIMMING CASER [address] [place] [address] Medicine Social History Tobacco Use [...] is lower risk 8 06/01/2023 Data from: https://www.neighborhoodatlas.medicine.[facility]/. Last address used for calculation [address] [facility] 06/01/2023 Comments No Sex and Gender [...] 06/22/2025 2:20 PM EDT Office Visit Rheumatology [address] [place] [address] Zulema Mclean MD [address] [facility] [address] [place] [address] 6 month follow up documented as of this encounter Visit Diagnoses Not on filedocumented in this encounter Care Teams Tiler Relationship Specialty Start Date End Date Jesus Camacho MD [address] [place] [address] PCP - General Family Medicine 05/12/23 Jesus Camacho MD Referring Family Medicine 01/14/21 Jesus Camacho MD [address] [place] [address] Referring Family Medicine 05/12/23 documented as of this encounter
--- OUTSIDE RECORDS SUMMARY | 2025-06-07 13:06 | XMS_ITS | Encounter Summary ---
Author Organization [facility] Address [address] [place] [address] Care Team Providers Care Is Support Analyst Name Role Phone Jesus Camacho MD Unavailable [phone] Jesus Camacho MD Unavailable [phone] Jesus Camacho MD Primary Care Provider [phone] Source Comments In the event this information is protected by the Federal Confidentiality of Alcohol and Drug AbusePatient Records regulations: The Federal rules restrict any use of the information to criminally investigate or prosecute any alcohol or drug abuse patient.[facility] Reason for Visit * Reason Comments Refill Request Encounter Details Date Type Department Care Team (Late st Contact Info) Description 10/08/2024 Refill Rheumatology [address] [place] [address] Zulema Mclean MD [address] [facility] [address] [place] [address] Refill Request Social History Tobacco [...] is lower risk 8 06/01/2023 Data from: https://www.neighborhoodatlas.medicine.[facility]/. Last address used [...] 06/22/2025 2:20 PM EDT Office Visit Rheumatology [address] [place] [address] Zulema Mclean MD [address] [facility] [address] [place] [address] 6 month follow up documented as of this encounter Visit Diagnoses Not on filedocumented in this encounter Care Teams Is Support Analyst Relationship Specialty Start Date End Date Jesus Camacho MD [address] [place] [address] PCP - General Family Medicine 05/12/23 Jesus Camacho MD Referring Family Medicine 01/14/21 Jesus Camacho MD [address] [place] [id number] Referring Family Medicine 05/12/23 documented as of this encounter
--- OUTSIDE RECORDS SUMMARY | 2025-06-07 13:06 | XMS_ITS | Encounter Summary ---
Author Organization [facility] Address [address] [place] [address] Care Team Providers Care Tilting Head Band Sawyer Name Role Phone Jesus Camacho MD Unavailable [phone] Jesus Camacho MD Unavailable [phone] Jesus Camacho MD Primary Care Provider [phone] Source Comments In the event this information is protected by the Federal Confidentiality of Alcohol and Drug AbusePatient Records regulations: The Federal rules restrict any use of the information to criminally investigate or prosecute any alcohol or drug abuse patient.[facility] Encounter Details Date Type Department Care Team (Late st Contact Info) Description 01/27/2024 [place] [address] Provider, Ccf Questionnaire Submission Social History Tobacco [...] Data from: https://www.neighborhoodatlas.medicine.[facility].edu/. Last address used for calculation [...] 06/22/2025 2:20 PM EDT Office Visit Rheumatology [address] [place] [address] Zulema Mclean MD [address] [facility] [address] [place], [place] [id number] 6 month follow up documented as of this encounter Visit Diagnoses Not on filedocumented in this encounter Care Teams Tilting Head Band Sawyer Relationship Specialty Start Date End Date Jesus Camacho MD [address] [place] [address] PCP - General Family Medicine 05/12/23 Jesus Camacho MD Referring Family Medicine 01/14/21 Jesus Camacho MD [address] [place] [address] Referring Family Medicine 05/12/23 documented as of this encounter
--- OUTSIDE RECORDS SUMMARY | 2025-06-07 13:06 | XMS_ITS | Encounter Summary ---
Author Organization [facility] Address [address] [place] [address] Care Team Providers Care Field Map Editor Name Role Phone Jesus Camacho MD Unavailable [phone] Jesus Camacho MD Unavailable [phone] Jesus Camacho MD Primary Care Provider [phone] Source Comments In the event this information is protected by the Federal Confidentiality of Alcohol and Drug AbusePatient Records regulations: The Federal rules restrict any use of the information to criminally investigate or prosecute any alcohol or drug abuse patient.[facility] Encounter Details Date Type Department Care Team (Late st Contact Info) Description 04/01/2025 Get Medical Advice [facility] [address] [id number] Jacky Pineda MD [address] [place] [address] Incision Social History Tobacco Use [...] lower risk 8 06/01/2023 Data from: https://www.neighborhoodatlas.medicine.[facility]/. Last address used for calculation [...] 06/22/2025 2:20 PM EDT Office Visit Rheumatology [address] [place] [address] Zulema Mclean MD [address] [facility] [address] [place] [address] 6 month follow up documented as of this encounter Visit Diagnoses Not on filedocumented in this encounter Care Teams Field Map Editor Relationship Specialty Start Date End Date Jesus Camacho MD [address] [place] [address] PCP - General Family Medicine 05/12/23 Jesus Camacho MD Referring Family Medicine 01/14/21 Jesus Camacho MD [address] [place] [address] Referring Family Medicine 05/12/23 documented as of this encounter
--- OUTSIDE RECORDS SUMMARY | 2025-06-07 13:06 | XMS_ITS | Encounter Summary ---
Author Organization [facility] Address [facility] [place] [address] Care Team Providers Care Power Press Supervisor Name Role Phone Jesus Camacho MD Unavailable [phone] Jesus Camacho MD Unavailable [phone] Jesus Camacho MD Primary Care Provider [phone] Source Comments In the event this information is protected by the Federal Confidentiality of Alcohol and Drug AbusePatient Records regulations: The Federal rules restrict any use of the information to criminally investigate or prosecute any alcohol or drug abuse patient.[facility] Encounter Details Date Type Department Care Team (Late st Contact Info) Description 01/03/2025 Get Medical Advice [facility] [address] [place] [address] Jacky Pineda MD [address] [place] [address] Testing Social History Tobacco Use [...] risk 8 06/01/2023 Data from: https://www.neighborhoodatlas.medicine.[facility]/. Last address used for calculation [address] [...] 06/22/2025 2:20 PM EDT Office Visit Rheumatology [address] [place] [address] Zulema Mclean MD [address] [facility] [address] [place] [address] 6 month follow up documented as of this encounter Visit Diagnoses Not on filedocumented in this encounter Care Teams Power Press Supervisor Relationship Specialty Start Date End Date Jesus Camacho MD [address] [place] [address] PCP - General Family Medicine 05/12/23 Jesus Camacho MD Referring Family Medicine 01/14/21 Jesus Camacho MD [address] [place] [address] Referring Family Medicine 05/12/23 documented as of this encounter
--- OUTSIDE RECORDS SUMMARY | 2025-06-07 13:06 | XMS_ITS | Encounter Summary ---
Author Organization [facility] Address [facility] [place] [address] Care Team Providers Care Direct Support Professional Caregiver Name Role Phone Jesus Camacho MD Unavailable [phone] Jesus Camacho MD Unavailable [phone] Jesus Camacho MD Primary Care Provider [phone] Source Comments In the event this information [...] [facility] [address] [place] [address] Jacky Pineda MD [address] [place] [address] Eye test results Social History [...] is lower risk 8 06/01/2023 Data from: https://www.neighborhoodatlas.medicine.[facility]/. Last address used for calculation [...] 06/22/2025 2:20 PM EDT Office Visit Rheumatology [address] [place] [address] Zulema Mclean MD [address] [facility] [address] [place] [address] 6 month follow up documented as of this encounter Visit Diagnoses Not on filedocumented in this encounter Care Teams Direct Support Professional Caregiver Relationship Specialty Start Date End Date Jesus Camacho MD [address] [place] [address] PCP - General Family Medicine 05/12/23 Jesus Camacho MD Referring Family Medicine 01/14/21 Jesus Camacho MD [address] [id number] Referring Family Medicine 05/12/23 documented as of this encounter
--- OUTSIDE RECORDS SUMMARY | 2025-06-07 13:06 | XMS_ITS | Encounter Summary ---
Author Organization [facility] Address [facility] [place] [address] Care Team Providers Care Band Edger Name Role Phone Jesus Camacho MD Unavailable [phone] Jesus Camacho MD Unavailable [phone] Jesus Camacho MD Primary Care Provider [phone] Source Comments In the event this information is protected by the Federal Confidentiality of Alcohol and Drug AbusePatient Records regulations: The Federal rules restrict any use of the information to criminally investigate or prosecute any alcohol or drug abuse patient.[facility] Encounter Details Date Type Department Care Team (Late st Contact Info) Description 12/14/2024 Get Medical Advice [facility] [address] [place] [address] Jacky Pineda MD [address] [place] [address] Eye test Social History Tobacco [...] 8 06/01/2023 Data from: https://www.neighborhoodatlas.medicine.[facility]/. Last address used for calculation [address] [facility] 06/01/2023 Comments No Sex and Gender [...] 06/22/2025 2:20 PM EDT Office Visit Rheumatology [address] [place] [address] Zulema Mclean MD [address] [facility] [facility] [address] [place] [address] 6 month follow up documented as of this encounter Visit Diagnoses Not on filedocumented in this encounter Care Teams Band Edger Relationship Specialty Start Date End Date Jesus Camacho MD [address] [place] [address] PCP - General Family Medicine 05/12/23 Jesus Camacho MD Referring Family Medicine 01/14/21 Jesus Camacho MD [address] [place] [address] Referring Family Medicine 05/12/23 documented as of this encounter
--- OUTSIDE RECORDS SUMMARY | 2025-06-07 13:07 | XMS_ITS | Encounter Summary ---
Author Organization [facility] Address [facility] [place] [address] Care Team Providers Care Back Padder Name Role Phone Jesus Camacho MD Unavailable [phone] Jesus Camacho MD Unavailable [phone] Jesus Camacho MD Primary Care Provider [phone] Source Comments In the event this information is protected by the Federal Confidentiality of Alcohol and Drug AbusePatient Records regulations: The Federal rules restrict any use of the information to criminally investigate or prosecute any alcohol or drug abuse patient.[facility] Encounter Details Date Type Department Care Team (Late st Contact Info) Description 11/02/2022 Get Medical Advice Rheumatology [address] [place] [address] Zulema Mclean MD [address] [facility] [address] [place], [place] [id number] Fibromyalgia Social History Tobacco Use Types Packs/Day Years Used Date Smoking Tobacco: Former Smokeless Tobacco: Never PHQ-2 Answer Date Recorded PHQ-2 score 1 09/22/2022 Area Deprivation Index Answer Date Eliseo rded National Score (1-100), lower number is lower ri sk 90 09/29/2022 State Score (1-10), lower number is lower risk N ot on file 09/29/2022 Data from: https://www.neighborhoodatlas.medicine.[facility]/. Last address used for calculation [...] 06/22/2025 2:20 PM EDT Office Visit Rheumatology [address] [place] [address] Zulema Mclean MD [address] [facility] [address] [place] [address] 6 month follow up documented as of this encounter Visit Diagnoses Not on filedocumented in this encounter Care Teams Back Padder Relationship Specialty Start Date End Date Jesus Camacho MD [address] [place] [address] PCP - General Family Medicine 05/12/23 Jesus Camacho MD Referring Family Medicine 01/14/21 Jesus Camacho MD [address] [place] [address] Referring Family Medicine 05/12/23 documented as of this encounter
--- OUTSIDE RECORDS SUMMARY | 2025-06-07 13:07 | XMS_ITS | Encounter Summary ---
Author Organization [facility] Address [address] [place] [address] Care Team Providers Care Director Of Student Services Name Role Phone Jesus Camacho MD Unavailable Jesus Camacho MD Unavailable [phone] Jesus Camacho MD Primary Care Provider [phone] Source Comments In the event this information is protected by the Federal Confidentiality of Alcohol and Drug AbusePatient Records regulations: The Federal rules restrict any use of the information to criminally investigate or prosecute any alcohol or drug abuse patient.[facility] Encounter Details Date Type Department Care Team (Late st Contact Info) Description 03/12/2023 Patient Msg Rheumatology [address] [place] [address] Provider, [facility] Appointment Cancellation Social History Tobacco Use Types Packs/Day Years Used Date Smoking Tobacco: Former Smokeless Tobacco: Never PHQ-2 Answer Date Recorded PHQ-2 score 1 09/22/2022 Area Deprivation Index Answer Date Eliseo rded National Score (1-100), lower number is lower ri sk 90 09/29/2022 State Score (1-10), lower number is lower risk N ot on file 09/29/2022 Data from: https://www.neighborhoodatlas.medicine.[facility].edu/. Last address used for calculation [...] 06/22/2025 2:20 PM EDT Office Visit Rheumatology [address] [place] [address] Zulema Mclean MD [address] [facility] [address] [place], [place] [id number] 6 month follow up documented as of this encounter Visit Diagnoses Not on filedocumented in this encounter Care Teams Director Of Student Services Relationship Specialty Start Date End Date Jesus Camacho MD [address] [place] [address] PCP - General Family Medicine 05/12/23 Jesus Camacho MD Referring Family Medicine 01/14/21 Jesus Camacho MD [address] [place] [address] Referring Family Medicine 05/12/23 documented as of this encounter
--- OUTSIDE RECORDS SUMMARY | 2025-06-07 13:07 | XMS_ITS | Encounter Summary ---
Author Organization [facility] Address [facility] [place] [address] Care Team Providers Care Grinding And Polishing Laborer Name Role Phone Jesus Camacho MD Unavailable [phone] Jesus Camacho MD Unavailable [phone] Jesus Camacho MD Primary Care Provider [phone] Source Comments In the event this information is protected by the Federal Confidentiality of Alcohol and Drug AbusePatient Records regulations: The Federal rules restrict any use of the information to criminally investigate or prosecute any alcohol or drug abuse patient.[facility] Encounter Details Date Type Department Care Team (Late st Contact Info) Description 01/06/2023 Get Medical Advice Rheumatology [address] [place] [address] Zulema Mclean MD [address] [facility] [address] [place], [place] [id number] Fibromyalgia update Social History Tobacco Use Types Packs/Day Years Used Date Smoking Tobacco: Former Smokeless Tobacco: Never PHQ-2 Answer Date Recorded PHQ-2 score 1 09/22/2022 Area Deprivation Index Answer Date Eliseo rded National Score (1-100), lower number is lower ri sk 90 09/29/2022 State Score (1-10), lower number is lower risk N ot on file 09/29/2022 Data from: https://www.neighborhoodatlas.medicine.[facility]/. Last address used [...] 06/22/2025 2:20 PM EDT Office Visit Rheumatology [address] [place] [address] Zulema Mclean MD [address] [facility] [address] [place] [address] 6 month follow up documented as of this encounter Visit Diagnoses Not on filedocumented in this encounter Care Teams Grinding And Polishing Laborer Relationship Specialty Start Date End Date Jesus Camacho MD [address] [place] [address] PCP - General Family Medicine 05/12/23 Jesus Camacho MD Referring Family Medicine 01/14/21 Jesus Camacho MD [address] [place] [address] Referring Family Medicine 05/12/23 documented as of this encounter
--- OUTSIDE RECORDS SUMMARY | 2025-06-07 13:07 | XMS_ITS | Encounter Summary ---
Author Organization [facility] Address [address] [place] [address] Care Team Providers Care News Commentator Name Role Phone Jesus Camacho MD Unavailable [phone] Jesus Camacho MD Unavailable [phone] Jesus Camacho MD Primary Care Provider [phone] Source Comments In the event this information is protected by the Federal Confidentiality of Alcohol and Drug AbusePatient Records regulations: The Federal rules restrict any use of the information to criminally investigate or prosecute any alcohol or drug abuse patient.[facility] Encounter Details Date Type Department Care Team (Late st Contact Info) Description 12/31/2022 Patient Msg Hematology [address] [place] [address] Provider, [facility] Dr. Mclean Appointment Social History Tobacco Use Types Packs/Day Years Used Date Smoking Tobacco: Former Smokeless Tobacco: Never PHQ-2 Answer Date Recorded PHQ-2 score 1 09/22/2022 Area Deprivation Index Answer Date Eliseo rded National Score (1-100), lower number is lower ri sk 90 09/29/2022 State Score (1-10), lower number is lower risk N ot on file 09/29/2022 Data from: https://www.neighborhoodatlas.medicine.[facility].edu/. Last address used for calculation [...] 2:20 PM EDT Office Visit Rheumatology [address] [place] [address] Zulema Mclean MD [address] [facility] [address] [place], [place] [id number] 6 month follow up documented as of this encounter Visit Diagnoses Not on filedocumented in this encounter Care Teams News Commentator Relationship Specialty Start Date End Date Jesus Camacho MD [address] [place] [address] PCP - General Family Medicine 05/12/23 Jesus Camacho MD Referring Family Medicine 01/14/21 Jesus Camacho MD [address] [place] [address] Referring Family Medicine 05/12/23 documented as of this encounter
--- NOTE | 2025-06-07 13:09 | PM.CN ---
Consult Note: HPI Data of Consult Patient: known to practice within the last 3 years Requesting Physician: Chantal Ocampo NP Primary Care Provider: Jesus Camacho MD Consult Narrative Reason for consult: neck and upper back pain Narrative: Kourtney Novak a pleasant 49 year old female presents for evaluation and management of chronic neck and thoracic pain unresponsive to > 6 weeks of PT/HEP, heat, ice, tylenol, NSAIDs. Recently underwent Bilateral C6-7 transforaminal epidural steroid injection with >80% improvement ongoing. Pt noting persistent middle back pain, as well as acute severe right ribcage pain. Pt has been evaluated by urgent care and ER for her right rib cage pain, pending further evaluation with her PCP. denies injury. pain 5-8/10 in right chest wall and middle back, sharp pain. reports increased pain with lying down, position changes, bending, activity. utilize hydrocodone and oral steroids with mild relief. no benefit to robaxin 500mg BID. 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], unspecified hand (ICD-10) History of smoking ?Z87.891 - Personal history of nicotine dependence (ICD-10) Carpal tunnel syndrome ?G56.00 - Carpal tunnel syndrome, unspecified upper limb (ICD-10) Obesity ?E66.9 - Obesity, unspecified (ICD-10) Anemia ?D64.9 - Anemia, unspecified (ICD-10) Anxiety ?F41.9 - Anxiety disorder, unspecified (ICD-10) Acid reflux ?K21.9 - Gastro-esophageal reflux disease without esophagitis (ICD-10) Diabetes 1.5, managed as type 2 ?E13.9 - Other specified diabetes mellitus without complications (ICD-10) Hypertension ?I10 - Essential (primary) hypertension (ICD-10) High cholesterol ?E78.00 - Pure hypercholesterolemia, unspecified (ICD-10) Surgical History H/O resection of rib ?Z98.890 - Other specified postprocedural states (ICD-10) History of surgery on arm ?Z98.890 - Other specified postprocedural states (ICD-10) H/O breast biopsy ?Z98.890 - Other specified postprocedural states (ICD-10) History of carpal tunnel surgery ?Z98.890 - Other specified postprocedural states (ICD-10) History of appendectomy ?Z90.49 - Acquired absence of other specified parts of digestive tract (ICD-10) Meds Home Medications and Allergies Home Medications ?Medication ?Instructions ?Recorded ?Confirmed ?Type dapagliflozin propanediol 5 mg 5 mg PO DAILY 02/17/23 05/29/25 History tablet (Farxiga) duloxetine 30 mg capsule,delayed 30 mg PO DAILY 02/17/23 05/29/25 History release glycopyrrolate 1 mg tablet 1 mg PO Q8H PRN secretions 02/17/23 05/29/25 History ipratropium 0.5 mg-albuterol 3 mg 3 ml inhalation Q6H PRN shortness 02/17/23 05/29/25 History (2.5 mg base)/3 mL nebulization of breath soln lamotrigine 200 mg tablet 200 mg PO Q8H 02/17/23 05/29/25 History lubiprostone 24 mcg capsule 24 mcg PO BID 02/17/23 05/29/25 History metformin 500 mg tablet 1,000 mg PO BID 02/17/23 05/29/25 History ondansetron HCl 4 mg tablet 4 mg PO Q8H PRN nausea and vomiting 02/17/23 05/29/25 History pioglitazone 15 mg tablet 15 mg PO DAILY 02/17/23 05/29/25 History budesonide 1 mg/2 mL suspension 1 mg inhalation DAILY 03/08/24 05/29/25 History for nebulization (Pulmicort) dexlansoprazole 60 mg 60 mg PO DAILY 03/08/24 05/29/25 History capsule,biphase delayed release (Dexilant) etodolac 400 mg tablet (Lodine) 400 mg PO Q12H PRN pain 03/08/24 05/29/25 History methocarbamol 500 mg tablet mg 07/04/24 History mirabegron 25 mg tablet,extended mg PO 10/21/24 History release 24 hr (Myrbetriq) Allergies Allergy/AdvReac Type Severity Reaction Status Date / Time No Known Drug Allergies Allergy Verified 05/29/25 07:08 Exam Constitutional Documenting provider has reviewed patient's vital signs: yes Common normals: no apparent distress, oriented x3, healthy appearing, alert and well nourished General appearance: cooperative HENMT Common normals: normocephalic, hearing grossly normal bilaterally and moist oral mucous membranes Head and scalp: normocephalic Eye Common normals: PERRL Pupil: PERRL Neck & C-Spine Common normals: full ROM General: normal visual inspection Cervical spine: cervical ROM normal; no pain with cervical ROM Chest Common normals: inspection of chest normal Other: pt denies rash tenderness noted along right rib cage Respiratory Common normals: normal respiratory effort, no retractions and no use of accessory muscles Back & Pelvis Thoracic spine/upper back: ROM limited, pain with ROM and thoracic spinal tenderness T-spine tenderness location: T5, T6, T7 and T8 Other: intercostal pain noted following right T5,6,7 Neuro Common normals: oriented x3 Sensorium/orientation: alert Psych Common normals: mental status grossly normal, thought process normal, cooperative, affect normal, speech normal and activity/motor behavior normal Speech: normal speech Thought process: normal thought process Results Additional Findings Additional findings: If on a controlled substance or opioids, I have checked an [place]AR[place] report on this patient and there are no aberrancies noted in the prescribing history.??If on a controlled substance or opioid a drug screen was completed and reviewed within the last year, and if there has not been a drug screen completed we ordered one today to monitor higher risk, state monitored pain medication use. As part of providing excellent, safe, comprehensive care, the following was completed at our patient's visit: 1. A medication reconciliation and review to ensure accurate knowledge of current/active medications, including asking our patients to inform us about any swoa-cio-pfumuxx medications or herbal remedies/nutritional supplements/alternative remedies. 2. A review to specifically ensure our patients have had annual screening for screening for depression, screening for tobacco use, and screening for unhealthy alcohol use. For concerning screenings had a discussion with the patient, provided patient education, and recommended follow-up with primary care provider when appropriate. If patient noted with a risk of falling, they received education on strength, gait, and balance training to prevent future risk of falling. Portions of this note may have been carried over from the previous visit and updated as appropriate. Please note this office utilizes paper charting in addition to the electronic medical record. A list of current medications, vitals, and PMH is available there as the clinical staff outside of myself do not have access to [employer] charting during the clinic day operations. As part of providing quality comprehensive care the current medications, vitals, and PMH were reviewed in the paper chart. Assessment and Plan Assessment and Plan (1) Thoracic radiculopathy: Assessment and Plan: minimal degenerative changes noted on thoracic xray The patient has had over 3 months of moderate to severe thoracic pain with functional impairment and inadequate response to conservative care including NSAIDS (unless there are contraindication such as concurrent blood thinners), multiple oral or topical pain medications, and home exercise program/physical therapy.? Patient has completed >6 weeks of guided home exercise program and/or formal physical therapy program without relief of their symptoms.? (2) Thoracic back pain: (3) Cervical stenosis of spinal canal: Assessment and Plan: 05/29/25 bilateral C6/7 TFESI >80% improvement ongoing (4) Cervical spondylosis: (5) Intercostal neuralgia: Plan continue f/u with pcp for acute right chest wall/rib pain proceed with thoracic mri without contrast to assess chronic moderate to severe thoracic pain, thoracic radiculopathy, intercostal neuralgia increase robaxin 500-1000mg tid prn pain/spasms pt reports she trialed gabapentin in the past with side effects f/u after MRI
--- OUTSIDE RECORDS SUMMARY | 2025-06-07 13:10 | XMS_ITS | CCD ---
Author Organization [facility] CliniSyva Care Team Providers Care Machine I Cutter Name Role Phone PHYSICIAN, DEFAULT Unavailable Unavailable [...] Provider MD Sammie Gonzalez Attending Provider Hank ([facility])MARILEE Attending Provider Sammie Gonzalez MD Unavailable Sammie Gonzalez MD Primary Care Provider Sammie Gonzalez MD Unavailable Sammie Gonzalez MD Primary Care Provider Sammie Gonzalez MD Primary Care Provider MD Sammie Gonzalez Primary Care Provider MD Sammie Gonzalez Attending Provider MD Zeinab Wood Attending Provider [phone] PINEDA, ERIK F Referring Unavailable SAMMIE GONZALEZ Primary Care Unavailable PINEDA, ERIK F Referring Unavailable SAMMIE GONZALEZ Primary Care [...] Attending Provider Sammie Gonzalez MD Attending Provider [facility] Zeinab LANDEROS Unavailable Unavaila ble PINEDA, ERIK F Attending Unavailable HOY, SAMMIE [...] Unavailable HOY, SAMMIE M Primary Care Unavailable PINEDAERIK F Attending Unavailable HOY, SAMMIE M Primary Care Unavailable HOY, SAMMIE M Primary Care Unavailable HOY, SAMMIE M Primary Care Unavailable HEATHER MOY Attending Unavailable SHARON WILBURN Attending Unavailable ESTEVAN POLANCO Attending Unavailable [facility] UnavailSammie Ko MD Primary Care Unavailable Sammie Gonzalez MD Primary Care Provider Elyssa Gomes MD Attending Provider Sammie Gonzalez MD Attending Provider Sammie Gonzalez MD Primary Care Provider Krishan Nuñez DO Attending Provider Darrick MCGHEE, Ridge Garcia Attending Unavailable Darrick MCGHEE, Ridge Garcia Attending Unavailable Darrick MCGHEE, Ridge Garcia Attending Unavailable Darrick MCGHEE, Ridge Garcia Attending Unavailable Darrick MCGHEE, Ridge Garcia Attending Unavailable Darrick MCGHEE, Andnestor Garcia Attending Unavailable Saffle Mayda HUNT Emergency Provider Hoy, Sammie M Primary Care Unavailable Elyssa Gomes R Admitting Unavailable Elyssa Gomes R Attending Unavailable Hoy, Sammie M Attending Unavailable Hoy, Sammie M Admitting Unavailable Hoy, Sammie M Primary Care Unavailable Hoy, Sammie M Attending Unavailable Hoy, Sammie M Admitting Unavailable Hoy, Sammie M Primary Care Unavailable Hoy, Sammie M Primary Care Unavailable Krishan Nuñez Admitting Unavailable Krishan Nuñez Attending Unavailable Hoy, Sammie M Primary Care Unavailable Mayda Hendrix Admitting Unavailable Mayda Hendrix Attending Unavailable Hoy, Sammie M Primary Care Unavailable Hoy, Sammie M Attending Unavailable Hoy, Sammie M Admitting Unavailable Hoy, Sammie M Primary Care Unavailable Self, Referral Admitting Unavailable Self, Referral Attending Unavailable Hoy, Sammie M Primary Care Unavailable Zeinab Wood Admitting Unavailable Zeinab Wood Attending Unavailable Mk Broderick Admitting Unavailable Mk Broderick Attending Unavailable Hoy, Sammie M Primary Care Unavailable Hoy, Sammie M Primary Care Unavailable Hoy, Sammie M Attending Unavailable Hoy, Sammie M Admitting Unavailable Rice WHCNP WHCNP, Zeinab Unavailable Unavaila ble Medications Current Medications Medication Drug Class(es) Dates [...] four times daily as needed for headache kafcfkuogu-rqttiostuwhzp-npdvzjcn 50-325-40 MG tablet TAKE 1 TABLET BY [...] (20 sources) Penicillin-class Antibacterial Start: 07-13-2024 End: 11-09-2024 take 1 tablet by mouth in the [...] Monitoring Suppl (True Metrix Meter) w/Device kit (5 sources) Start: 03-10-2023 Blood Glucose Monitoring Suppl [...] (20 sources) Sodium-Glucose Cotransporter 2 Inhibitor Start: 019 End: take 1 tablet by mouth once [...] Comment on above: TAKE 1 TABLET BY [facility] EVERY DAY FOR 6 DAYS dexlansoprazole 60 mg delayed release oral capsule (20 sources) Proton Pump Inhibitor Start: 12-22-2019 End: 06-26-2023 take 1 capsule by mouth twice daily dexlansoprazole (Dexilant) [address] capsule 1 capsule 1 (one) time each day at the same time. Active Comment on above: Take 1 capsule by mo [facility] twice daily. Dexlansoprazole (Dexilant) 60 mg capsule,biphase delayed releas (20 sources) Start: 10-10-19 take 1 capsule by mouth twice daily Dexlansoprazole (Dexilant) 60 mg capsule,biphase delayed releas Active 60 MG PO Twice daily October 10, 2021 12:00am Start: 10-10-2021 take 1 capsule by [facility] twice daily Dexlansoprazole (Dexilant) 60 [...] daily. docusate sodium 50 mg / sennosides, long term 8.6 mg oral tablet (17 sources) Start: [...] needed for anxiety take 1 capsule by [facility] every twenty-four hours Doxepin HCl [...] above: Take 1 capsule by mo ut once daily. TAKE 1 CAPSULE BY MO UT EVERY DAY etodolac 400 mg oral tablet [...] by inhal ation every six hours Ipratropium [place] Active 0.5 MG INHALATION Q6H September 11, [...] 12, 2017 1:00am take 1 tablet by [facility] every twenty-four hours lamoTRIgine 200 MG 1 tablet on the tongue and allow to dissolve Orally Once a day Active Comment on above: TAKE 3 TABLETS EVERY DAY levothyroxine sodium 0.05 mg oral tablet (20 sources) l-Thyroxine Start: 05-17-20 levothyroxine (Synthroid, Levoxyl) 50 MCG tablet 1 [...] daily Start: 10-28-2018 take 1 capsule by [facility] twice daily Lubiprostone (Amitiza) 24 mcg capsule Active 24 MCG PO Twice daily October 28, 2018 12:00am Start: 10-28-2018 take 1 capsule by [facility] twice daily Lubiprostone (Amitiza) 24 mcg capsule Active 24 MCG PO Twice daily October 28, 2018 1:00am take 1 capsule by mo ut twice daily at mealtime Amitiza 24 MCG [...] oral tablet (20 sources) beta3-Adrenergic Agonist Start: 4 take 1 tablet by mouth once daily [...] on above: Take 1 capsule by mo [facility] daily at bedtime. ondansetron 4 mg oral tablet (20 sources) Serotonin-3 Receptor Antagonist Start: 3 take 1 tablet by mouth every six hours as needed for nausea and vomiting ondansetron (Zofran) 4 MG tablet TAKE 1 TABLET BY MOUTH EVERY 6 HOURS NEEDED FOR NAUSEA AND VOMITING 03/16/2023 Active Start: 10-02-2021 take 1 tablet by adrian every eight hours as needed for nausea [...] 2017 1:00am October 09, 2017 10:47pm predniSONE 20 mg oral tablet (20 sources) Start: 06-05-2025 predniSONE (De ltasone) 20 MG tablet Indications: Rib pain on right side Take 3 tabs for 2 days, 2 tabs for 2 days, 1 tab for 2 days, 1/2 tab for 2 days then stop 13 tablet 06/05/2025 Active Start: 09-09-2024 End: 02-27-2025 take 1-2 tablets [...] daily Prednisone Discontinued 40 MG PO Daily 06 18November 11, 2019 1:00am September 11, 2020 7:28am [...] po qd pregabalin 50 mg oral capsule (10 sources) Start: 06-19-2022 take 1 capsule by mouth in the morning pregabalin (Lyrica) 50 MG capsule Take 50 mg by mouth in the morning and 50 mg before bedtime. 06/19/2022 Active take 1 capsule by mo [facility] every twenty-four hours Lyrica 100 MG 1 capsule Orally Once a da y Not-Taking promethazine hydrochloride 25 mg oral tablet (5 sources) Phenothiazine Start: 02-17-2023 take 1 tablet [...] mouth once daily [facility] Daliresp 500 MCG [...] Start: 04-11-2022 take 2 tablets by mo [facility] once daily at bedtime tiZANidine (Zanaflex) 4 MG tablet TAKE 2 TABLETS BY MOUTH DAILY AT BEDTIME 04/11/2022 Active Comment on above: [facility] 8 hours as needed. topiramate 50 [...] sodium 500 mg delayed release oral tablet (5 sources) Mood Stabilizer, Anti-epileptic Agent Start: 2 [...] 18, 2021 October 02, 2021 4:22am amylase 164041 unt / lipase 72131 unt / protease 51386 unt delayed release oral capsule (20 sources) Start: 09-12-2017 End: 10-28-2018 take 53240-19004 capsules by mouth three times daily Exrukn-Dzqljkwf-Pv ylase (Creon) 24,000-76,000 -120,000 unit capsule,delayed release(DR/EC) Discontinued 1 TAB PO Three times daily September 12, 2017 1:00am October 28, 2018 12:18pm azithromycin 500 mg oral tablet (20 sources) Macrolide Antimicrobial Start: 10-11-2017 End: 10-16-2017 take 1 tablet by mouth once daily Azithromycin 500 mg tablet Discontinued 500 MG PO Daily 5 October 11, 2017 1:00am October 15, [...] sources) Anxiety; Translations: [Anxiety disorder, unspecified] Onset: 06-03-202 5 12-30-2017 Chronic Appendicitis and other appendiceal conditions (20 sources) Acute appendicitis; Translations: [Unspecified acute appendicitis] 09-17-2021 Episodic Cataract (5 sources) Nuclear senile cataract; Translations: [Age-related nuclear cataract, unspecified eye] Onset: 3 03-24-2023 Chronic Chronic obstructive pulmonary disease and bronchiectasis (20 sources) Acute exacerbation of chronic obstructive airways disease; Translations: [Chronic obstructive lung disease] Onset: 5 11-11-2019 Chronic Conditions associated with dizziness or vertigo (6 sources) Dizziness and giddiness; Translations: [Dizziness and giddiness] Onset: 5 03-29-2025 Episodic Contraceptive and procreative management (4 sources) Encounter for surveillance of injectable contraceptive; [...] of anus and rectum] 11-02-2018 Episodic Glaucoma (5 sources) Open angle with borderline findings, low [...] [de Quervain]] Episodic Other connective tissue disease (20 sources) Supraspinatus tear; Translations: [Unspecified rotator cuff tear or rupture of right shoulder, not specified as traumatic] 05-30-2025 Episodic Other connective tissue disease (6 sources) Unspecified rotator cuff tear or rupture of right shoulder, not specified as traumatic; Translations: [Tear of right supraspinatus tendon M75.101] Onset: 1 Resolved: 2 Episodic Other connective tissue disease (1 source) Bicipital tendinitis, left shoulder Episodic Other connective tissue disease (1 source) Other specified disorders of tendon, right shoulder Episodic Other connective tissue disease (20 sources) Biceps tendinitis; Translations: [Bicipital tendinitis, unspecified shoulder] 01-26-2024 Episodic Other connective tissue disease (3 sources) Bicipital tendinitis, unspecified shoulder; Translations: [Bicipital tenosynovitis] 01-26-2024 Episodic Other connective tissue disease (11 sources) Bursitis of left shoulder; Translations: [Bursitis [...] Episodic Other ear and sense organ disorders (5 sources) Otitis externa; Translations: [Unspecified otitis externa, unspecified ear] Onset: 3 03-24-2023 Chronic Other endocrine disorders (19 sources) Disorder of pancreatic internal secretion; 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, unspecified] Chronic Other fractures (1 source) Fracture of rib; Translations: [Fracture of one rib, unspecified side, initial encounter for closed fracture] 06-05-2025 Episodic Other fractures (1 source) Fracture of one rib, unspecified side, initial encounter for closed fracture; Translations: [Fracture of one rib, unspecified side, initial encounter for closed fracture] Onset: 5 Episodic Other gastrointestinal disorders (19 sources) Constipation; Translations: [...] Da te Episodic/Chronic Blindness and vision defects (10 sources) Bilateral myopia of eyes; Translations: [Myopia, [...] Resolved: 06-05-2021 Episodic Other connective tissue disease (20 sources) Fibromyalgia; Translations: [Fibromyalgia] Onset: 03-24-2023 Episodic Other diseases of kidney and ureters (1 source) Disorder of kidney and ureter, unspecified; Translations: [Disorder of kidney and ureter, unspecified] Onset: 02-10-2025 Episodic Other gastrointestinal disorders (5 sources) Abdominal bloating; Translations: [Abdominal distension (gaseous)] Onset: 03-25-2023 03-25-2023 Episodic Other lower respiratory disease (5 sources) Rib pain; Translations: [Pleurodynia] Onset: 03-25-2023 03-25-2023 Episodic Other nervous system disorders (16 sources) Cerebral edema; Translations: [Cerebral edema] Onset: 02-21-2025 Resolved: 03-29-2025 02-21-2025 Chronic Other nervous system disorders (16 sources) Postoperative pain ; Translations: [Other acute postprocedural pain] Onset: 02-22-2025 Resolved: 03-29-2025 02-22-2025 Episodic Other non-traumatic joint disorders (15 sources) Pain in left shoulder; Translations: [Acute [...] Test Name Value Interpretation Reference Range Facility X-ray reportOrdered By: Quirino Hoffmann on 06-05-2025 Study report [facility] Main [address] [address] XRay Report Signed Patient: Kourtney Novak MR#: [id number] : 1975 Acct:[id number] Age/Sex: 49 / F ADM Date: 5 Loc: ER Room: Type: [facility] ER Attending Dr: Copies to: Mayda Hendrix APRN~ Ordering Provider: Mayda Hendrix APRN Date of Service: 06/05/25 XR/XR ribs RT min 3V w CXR1V*: Back Pain/Injury PA CHEST WITH RIGHT RIBS: CLINICAL HISTORY: Right-sided anterolateral lower rib pain worse in past 2 weeks COMPARISON: No recent comparisons FINDINGS: Unremarkable cardiomediastinal. Lungs clear. No effusion or pneumothorax. Remote healed right-sided rib fractures noted. There are surgical clips projecting over the right shoulder/chest. XR/XR ribs RT min 3V w CXR1V* IMPRESSION: NEGATIVE ACUTE DISPLACED RIB FRACTURE. NO ACUTE PLEURAL-PARENCHYMAL DISEASE. Impression dictated by: Lincoln Hoffmann M.D. 06/05/2025 9:52 PM Dictation Location: [place] [address] Transcribed By: [facility] 06/05/252151 Dictated By: Lincoln Hoffmann MD 06/05/252147 Signed By: 06/05/252151 [facility] Work Phone: XR ribs RT min 3V w CXR1V*on 06-05-2025 XR ribs RT min 3V w CXR1V* [facility] Main [address] [address] XRay Report Signed Patient: Kourtney Novak MR#: [id number] : 1975 Acct:[id number] Age/Sex: 49 / F ADM Date: 06/05/25 Loc: ER Room: Type: [facility] ER Attending Dr: Copies to: Mayda Hendrix APRN Ordering Provider: Mayda Hendrix APRN Date of Service: 06/05/25 XR/XR ribs RT min 3V w CXR1V*: Back Pain/Injury PA CHEST WITH RIGHT RIBS: CLINICAL HISTORY: Right-sided anterolateral lower rib pain worse in past 2 weeks COMPARISON: No recent comparisons FINDINGS: Unremarkable cardiomediastinal. Lungs clear. No effusion or pneumothorax. Remote healed right- sided rib fractures noted. There are surgical clips projecting over the right shoulder/chest. XR/XR ribs RT min 3V w CXR1V* IMPRESSION: NEGATIVE ACUTE DISPLACED RIB FRACTURE. NO ACUTE PLEURAL-PARENCHYMAL DISEASE. Impression dictated by: Lincoln Hoffmann M.D. 06/05/2025 9:52 PM Dictation Location: [place] [address] Transcribed By: [facility] 06/05/252151 Dictated By: Lincoln Hoffmann MD 06/05/252147 Signed By: 06/05/252151 Normal [facility] X-ray reportOrdered By: Perry Milton on 05-30-2025 Study report [facility] [address] [place] [address] XRay Report Signed Patient: Kourtney Novak MR#: [id number] : 1975 Acct:[id number] Age/Sex: 49 / F ADM Date: [place] [facility] [place]: Type: [facility] CLI Attending Dr: Krishan Nuñez DO Copies to: Krishan Nuñez DO~ Ordering Provider: Krishan Nuñez DO Date of Service: 05/30/25 XR/XR shoulder RT min 2V*: M25.511 - Pain in right shoulder XR shoulder RT min 2V* 05/30/2025 1:31 PM SIGNS AND SYMPTOMS: Right shoulder pain laterally PROTOCOL: Frontal, Grashey, scapular Y, and axillary views of the right shoulder COMPARISON: None FINDINGS: Mild hypertrophic changes are noted in the acromioclavicular joint. The glenohumeral joint is preserved. There is no fracture or dislocation. Surgicalclips are noted in the axillary region/right chest wall. Remote healed or healing right-sided rib fractures are redemonstrated. XR/XR shoulder RT min 2V* IMPRESSION: No fracture or dislocation. Degenerative changes are noted predominantly in the acromioclavicular joint. Impression dictated by: Perry Milton M.D. 05/30/2025 8:02 PM Dictation Location: [id number]-17 Transcribed By: [facility] 05/30/252001 Dictated By: Perry Milton II, MD 05/30/251999 Signed By: 05/30/252001 [facility] Work Phone: XR shoulder RT min 2V*on XR shoulder RT min 2V* [facility] [address] [place] [address] XRay Report Signed Patient: Kourtney Novak MR#: [id number] : 1975 Acct:[id number] Age/Sex: 49 / F ADM Date: 05/30/25 Loc: [facility] Room: Type: [facility] Attending Dr: Krishan Nuñez DO Copies to: Krishan Nuñez DO Ordering Provider: Krishan Nuñez DO Date of Service: 05/30/25 XR/XR shoulder RT min 2V*: M25.511 - Pain in right shoulder XR shoulder RT min 2V* 05/30/2025 1:31 PM SIGNS AND SYMPTOMS: Right shoulder pain laterally PROTOCOL: Frontal, Grashey, scapular Y, and axillary views of the right shoulder COMPARISON: None FINDINGS: Mild hypertrophic changes are noted in the acromioclavicular joint. The glenohumeral joint is preserved. There is no fracture or dislocation. Surgical clips are noted in the axillary region/right chest wall. Remote healed or healing right-sided rib fractures are redemonstrated. XR/XR shoulder RT min 2V* IMPRESSION: No fracture or dislocation. Degenerative changes are noted predominantly in the acromioclavicular joint. Impression dictated by: Perry Milotn M.D. 05/30/2025 8:02 PM Dictation Location: [place] [address] Transcribed By: [facility] 05/30/252001 Dictated By: Perry Milton II, MD 05/30/251999 Signed By: 05/30/252001 Normal [facility] A1C with Estimated Average G tanesha 05-26-2025 Glucose [Mass/Vol] 117 mg/dL Normal [facility] Comment on above: Order Comment: [email or web address] [email or web address] Result Comment: PERF ORMED BY: [facility] [address] [place] [address] PATHOLOGIST MOTORCOACH OPERATOR BERNARDINO HAMILTON M.D. Performed By: #### L IPID, [id number], TSH3, T3F, FE PRO, [id number], T4T, MG, A1C WTH eA, CBC, PHOS ####[facility] [id number] [address]#### INSULIN ####[facility] , Alanine aminotransferase [En zymatic activity/volume] in Serum or PlasmaOrdered By: Sammie Gonzalez on 05-26-2025 ALT [Catalytic activity/Vol] 17 U/L Normal 7-52 [facility] Comment on above: Performed By: #### C MP ####[address] Albumin [Mass/volume] in Ser um or Plasma by Bromocresol green (BCG) dye binding methoOrdered By: Sammie Gonzalez on 05-26-2025 Albumin BCG dye [Mass/Vol] 4.2 g/dL 3.5-5.7 [facility] Alkaline phosphatase [Enzyma tic activity/volume] in Serum or PlasmaOrdered By: Sammie Gonzalez on 05-26-2025 ALP [Catalytic activity/Vol] 46 U/L Normal 34-104 [facility] Comment on above: Result Comment: PERF ORMED BY: [facility] [address] [place] [id number] PATHOLOGIST MOTORCOACH OPERATOR BERNARDINO HAMILTON M.D. Performed By: #### C MP ####[address] Aspartate aminotransferase [ Enzymatic activity/volume] in Serum or PlasmaOrdered By: Sammie Gonzalez on 05-26-2025 AST [Catalytic activity/Vol] 12 U/L Low 13-39 [facility] Comment on above: Performed By: #### C MP ####[address] Basophils [#/volume] in Bloo d by Automated countOrdered By: Sammie Gonzalez on 05-26-2025 Basophils (Bld) [#/Vol] 0.1 10*3/uL Normal 0.0-0.2 [facility] Comment on above: Order Comment: [email or web address] [email or web address] Result Comment: PERF ORMED BY: [facility] [address] [place] [address] PATHOLOGIST MOTORCOACH OPERATOR BERNARDINO HAMILTON M.D. Performed By: #### L IPID, [id number], TSH3, T3F, FE PRO, [id number], T4T, MG, A1C WTH eA, CBC, PHOS ####[address]#### INSULIN ####[facility] , Basophils/100 leukocytes in Blood by Automated countOrdered By: Sammie Gonzalez on 05-26-2025 Basophils/100 WBC (Bld) 0.7 % Normal . [facility] Comment on above: Order Comment: [email or web address] [email or web address] Performed By: #### L IPID, [id number], TSH3, T3F, FE PRO, [id number], T4T, MG, A1C WTH eA, CBC, PHOS ####[address]#### INSULIN ####[facility] , Bilirubin.total [Mass/volume ] in Serum or PlasmaOrdered By: Sammie Gonzalez on 05-26-2025 Bilirubin [Mass/Vol] 0.3 mg/dL Normal 0.3-1.0 [facility] Comment on above: Performed By: #### C MP ####[place] [address] [place] [id number] [facility] Blood estimated average gluc ose determination by estimation from glycated hemoglobinOrdered By: Sammie Gonzalez on 05-26-2025 Average glucose Estimated from glycated hemoglobin (Bld) [Mass/Vol] 117 mg/dL [facility] Calcium [Mass/volume] in Ser um or PlasmaOrdered By: Sammie Gonzalez on 05-26-2025 Calcium [Mass/Vol] 9.1 mg/dL Normal 8.6-10.3 [facility] Comment on above: Performed By: #### C MP ####[place] [id number] [facility] Carbon dioxide, total [Moles /volume] in Serum or PlasmaOrdered By: Sammie Gonzalez on 05-26-2025 CO2 [Moles/Vol] 26.4 mmol/L Normal 21.0-31.0 [facility] Comment on above: Performed By: #### C MP ####[place] [id number] [facility] Chloride [Moles/volume] in S micki or PlasmaOrdered By: Sammie Gonzalez on 05-26-2025 Chloride [Moles/Vol] 103 mmol/L Normal 98-107 [facility] Comment on above: Performed By: #### C MP ####[place] [id number] [facility] Cholesterol [Mass/volume] in Serum or PlasmaOrdered By: Sammie Gonzalez on 05-26-2025 Cholesterol [Mass/Vol] 206 mg/dL High 140-200 [facility] Comment on above: Chol less than 200 m g/dl low riskChol 201-239 mg/dl borderline riskChol 240 mg/dl and greater high risk Order Comment: PIPER BOXJKW Result Comment: Chol less than 200 mg/dl low risk Chol 201-239 mg/dl borderline risk Chol 240 mg/dl and greater high risk Performed By: #### L IPID, [id number], TSH3, T3F, FE PRO, [id number], T4T, MG, A1C WTH eA, CBC, PHOS ####[facility] [id number]#### INSULIN ####[facility] , Cholesterol in HDL [Mass/vol ume] in Serum or PlasmaOrdered By: Sammie Gonzalez on 05-26-2025 Cholesterol in HDL [Mass/Vol] 67 mg/dL Normal 23-92 [facility] Comment on above: HDL CHOL ATP-III CLA SSIFICATION Cardiovascular RiskHDL > or equal to 60 mg/dL LOWHDL < 40 mg/dL HIGH Order Comment: PIPER YANCEY Result Comment: HDL CHOL ATP-III CLASSIFICATION Cardiovascular Risk HDL > or equal to 60 mg/dL LOW HDL < 40 mg/dL HIGH Performed By: #### L IPID, [id number], TSH3, T3F, FE PRO, [id number], T4T, MG, A1C WTH eA, CBC, PHOS ####[facility] [facility]#### INSULIN ####[facility] , Cholesterol in LDL Calc [Mas s/Vol]Ordered By: Sammie Gonzalez on 05-26-2025 Cholesterol in LDL [Mass/Vol] 91 mg/dL 0-100 [facility] Comment on above: LDL ATP III CLASSIFI CATIONLDL less than 100 mg/dL OptimalLDL 100-129 mg/dL Near or above optimalLDL 130-159 mg/dL Borderline highLDL 160-189 mg/dL HighLDL greater than 189 mg/dL Very high Cholesterol in VLDL Calc [Ma ss/Vol]Ordered By: Sammie Gonzalez on 05-26-2025 Cholesterol in VLDL [Mass/Vol] 47 mg/dL [facility] Complete Blood Count Auto Di ffon 05-26-2025 Mean Corpuscular HGB Conc 33.0 g/dL Normal 32.0-35.0 [facility] Comment on above: Order Comment: PIPER YANCEY Performed By: #### L IPID, [id number], TSH3, T3F, FE PRO, [id number], T4T, MG, A1C WTH eA, CBC, PHOS ####[address]#### INSULIN ####[facility] , NRBC% 0.1 /100{WBC} Normal 0-0.5 [facility] Comment on above: Order Comment: FASTI NG.JKW Performed By: #### L IPID, [id number], TSH3, T3F, FE PRO, [id number], T4T, MG, A1C WTH eA, CBC, PHOS ####[address]#### INSULIN ####[facility] , White Blood Count 8.3 [CFU]/mL Normal 3.8-11.6 [facility] Comment on above: Order Comment: FASTI [email or web address].JKW Performed By: #### L IPID, [id number], TSH3, T3F, FE PRO, [id number], T4T, MG, A1C WTH eA, CBC, PHOS ####[address] [address]#### INSULIN ####[facility] , Comprehensive Metabolic Pane costa 05-26-2025 Albumin [Mass/Vol] 4.2 g/dL Normal 3.5-5.7 [facility] Comment on above: Performed By: #### C MP ####[address] GFR/1.73 sq M.predicted MDRD (S/P/Bld) [Vol rate/Area] mL/min/{1.73_m2} Normal [facility] Comment on above: Performed By: #### C MP ####[address] Creatinine [Mass/volume] in Serum or PlasmaOrdered By: Sammie Gonzalez on 09-12-2025 Creatinine [Mass/Vol] 0.85 mg/dL Normal 0.60-1.20 [facility] Comment on above: Performed By: #### C MP ####[address] Eosinophils [#/volume] in Bl ood by Automated countOrdered By: Sammie Gonzalez on 05-26-2025 Eosinophils (Bld) [#/Vol] 0.2 10*3/uL Normal 0.0-0.45 [facility] Comment on above: Order Comment: FASTI [email or web address] Performed By: #### L IPID, [id number], TSH3, T3F, FE PRO, [id number], T4T, MG, A1C WTH eA, CBC, PHOS ####[address]#### INSULIN ####[facility] , Eosinophils/100 leukocytes i n Blood by Automated countOrdered By: Sammie Gonzalez on 05-26-2025 Eosinophils/100 WBC (Bld) 3.0 % Normal . [facility] Comment on above: Order Comment: FASTI [email or web address] Performed By: #### L IPID, [id number], TSH3, T3F, FE PRO, [id number], T4T, MG, A1C WTH eA, CBC, PHOS ####[address]#### INSULIN ####[facility] , Erythrocyte distribution wid th [Ratio] by Automated countOrdered By: Sammie Gonzalez on 05-26-2025 Erythrocyte distribution width (RBC) [Ratio] 13.5 % Normal 11.9-15.3 [facility] Comment on above: Order Comment: FASTI [email or web address] Performed By: #### L IPID, [id number], TSH3, T3F, FE PRO, [id number], T4T, MG, A1C WTH eA, CBC, PHOS ####[address]#### INSULIN ####[facility] , Erythrocytes [#/volume] in B lood by Automated countOrdered By: Sammie Gonzalez on 05-26-2025 RBC (Bld) [#/Vol] 4.27 10*6/uL Normal 3.60-5.00 [facility] Comment on above: Order Comment: FASTI [email or web address] Performed By: #### L IPID, [id number], TSH3, T3F, FE PRO, [id number], T4T, MG, A1C WTH eA, CBC, PHOS ####[facility] [id number]#### INSULIN ####[facility] , FE PROon 05-26-2025 % Iron Saturation 10.2 % Low 20-50 [facility] Comment on above: Order Comment: FASTI [email or web address].JKW Performed By: #### L IPID, [id number], TSH3, T3F, FE PRO, [id number], T4T, MG, A1C WTH eA, CBC, PHOS ####[facility]#### INSULIN ####[facility] , Total Iron Binding Capacity 442 ug/dL Normal 255-450 [facility] Comment on above: Order Comment: FASTI [email or web address].JKW Performed By: #### L IPID, [id number], TSH3, T3F, FE PRO, [id number], T4T, MG, A1C WTH eA, CBC, PHOS ####[facility] [id number] [place] [id number] [place]#### INSULIN ####[facility] , Ferritin [Mass/volume] in Se rum or PlasmaOrdered By: Sammie Gonzalez on 05-26-2025 Ferritin [Mass/Vol] 8.1 ng/mL Low 11.0-306.8 [facility] Comment on above: Order Comment: FASTI [email or web address] Performed By: #### L IPID, [id number], TSH3, T3F, FE PRO, [id number], T4T, MG, A1C WTH eA, CBC, PHOS ####[facility] [id number] [address]#### INSULIN ####[facility] , Folate [Mass/volume] in Seru m or PlasmaOrdered By: Sammie Gonzalez on 05-26-2025 Folate [Mass/Vol] 30.0 ng/mL >5.9 [facility] Comment on above: Folate reference ran ge: >5.9 ng/mlThe WHO technical consultation on folate and vitamin [id number] has determined that folate concentrations lessthan 4 ng/ml are considered deficient. Glomerular filtration rate [ Volume Rate/Area] in Serum, Plasma or Blood by CreatinineOrdered By: Sammie Gonzalez on 05-26-2025 Glomerular filtration rate [Volume Rate/Area] in Serum, Plasma or Blood by Creatinine > 60.0 mL/Min [facility] Glucose [Mass/volume] in Ser um or PlasmaOrdered By: Sammie Gonzalez on 05-26-2025 Glucose [Mass/Vol] 88 mg/dL Normal 70-100 [facility] Comment on above: ADA recommended refe rence rangeRandom Glucose Reference Range is dependent on time and content of last meal. Glucose of more than 200 mg/dL in a nonstressed, ambulatory subject supports the diagnosis of Diabetes Mellitus. Result Comment: [place] om Glucose Reference Range is dependent on time and content of last meal. Glucose of more than 200 mg/dL in a nonstressed, ambulatory subject supports the diagnosis of Diabetes Mellitus. ADA recommended reference range Performed By: #### C MP ####[facility] [place] [id number] [facility] Hematocrit [Volume Fraction] of Blood by Automated countOrdered By: Sammie Gonzalez on 05-26-2025 Hematocrit (Bld) [Volume fraction] 37.8 % Normal 34.0-46.4 [facility] Comment on above: Order Comment: FASTI [email or web address] Performed By: #### L IPID, [id number], TSH3, T3F, FE PRO, [id number], T4T, MG, A1C WTH eA, CBC, PHOS ####[place] [address] [address]#### INSULIN ####[facility] , Hemoglobin A1c/Hemoglobin.to mike in BloodOrdered By: Sammie Smithpiedad on 05-26-2025 HbA1c (Bld) [Mass fraction] 5.7 % High 4.3-5.6 [facility] Comment on above: Increased risk for d iabetes: 5.7 - 6.4diabetes: >6.4glycemic control for adults with diabetes: <7.0 Order Comment: FASTI [email or web address] Result Comment: Incr eased risk for diabetes: 5.7 - 6.4 diabetes: >6.4 glycemic control for adults with diabetes: <7.0 Performed By: #### L IPID, [id number], TSH3, T3F, FE PRO, [id number], T4T, MG, A1C WTH eA, CBC, PHOS ####[address]#### INSULIN ####[facility] , Hemoglobin [Mass/volume] in BloodOrdered By: Sammie Gonzalez on 05-26-2025 Hemoglobin (Bld) [Mass/Vol] 12.5 g/dL Normal 11.8-15.4 [facility] Comment on above: Order Comment: FASTI [email or web address] Performed By: #### L IPID, [id number], TSH3, T3F, FE PRO, [id number], T4T, MG, A1C WTH eA, CBC, PHOS ####[address]#### INSULIN ####[facility] , Insulinon 05-26-2025 Insulin 15.6 u[iU]/mL Normal 2.6-24.9 [facility] Comment on above: Order Comment: FASTI [email or web address] Result Comment: Perf ormed at: - [facility] [address] [id number] Rug Clipper: Maxim Daniel PhD, Phone: [phone] PERFORMED BY: [facility] [address] [place] [address] PATHOLOGIST MOTORCOACH OPERATOR BERNARDINO HAMILTON M.D. Performed By: #### L IPID, [id number], TSH3, T3F, FE PRO, [id number], T4T, MG, A1C WTH eA, CBC, PHOS ####[place] [address] [address]#### INSULIN ####[facility] , Iron [Mass/volume] in Serum or PlasmaOrdered By: Sammie Gonzalez on 05-26-2025 Iron [Mass/Vol] 45 ug/dL Low 50-212 [facility] Comment on above: Order Comment: FASTI [email or web address] Performed By: #### L IPID, [id number], TSH3, T3F, FE PRO, [id number], T4T, MG, A1C WTH eA, CBC, PHOS ####[address]#### INSULIN ####[facility] , Leukocytes [#/volume] correc jana for nucleated erythrocytes in Blood by Automated counOrdered By: Sammie Gonzalez on 05-26-2025 WBC corrected for nucl RBC Auto (Bld) [#/Vol] 8.3 10*3/uL 3.8-11.6 [facility] Leukocytes [#/volume] in Blo od by Automated countOrdered By: Sammie Gonzalez on 05-26-2025 WBC (Bld) [#/Vol] 8.3 10*3/uL Normal 3.8-11.6 [facility] Comment on above: Order Comment: FASTI [email or web address] Performed By: #### L IPID, [id number], TSH3, T3F, FE PRO, [id number], T4T, MG, A1C WTH eA, CBC, PHOS ####[place] [address] [place]#### INSULIN ####[facility] , Lipid Panelon 05-26-2025 LDL Cholesterol,Calculated 91 mg/dL Normal 0-100 [facility] Comment on above: Order Comment: FASTI [email or web address] Result Comment: LDL ATP III CLASSIFICATION LDL less than 100 mg/dL Optimal LDL 100-129 mg/dL Near or above optimal LDL 130-159 mg/dL Borderline high LDL 160-189 mg/dL High LDL greater than 189 mg/dL Very high Performed By: #### L IPID, [id number], TSH3, T3F, FE PRO, [id number], T4T, MG, A1C WTH eA, CBC, PHOS ####[facility]#### INSULIN ####[facility] , Triglyceride w/Reflex 239 mg/dL High 0-149 [facility] Comment on above: Order Comment: FASTI [email or web address] Result Comment: TRIG ATP III CLASSIFICATION TRIG less than 150 mg/dL Normal TRIG 150-199 mg/dL Borderline high TRIG 200-500 mg/dL High TRIG greater than 500 mg/dL Very high Standard traceable to the Center for Disease Conrtrol and Prevention (CDC) test method. Performed By: #### L IPID, [id number], TSH3, T3F, FE PRO, [id number], T4T, MG, A1C WTH eA, CBC, PHOS ####[place] [address] [address]#### INSULIN ####[facility] , VLDL CHOLESTEROL 47 mg/dL Normal [facility] Comment on above: Order Comment: FASTI [email or web address] Performed By: #### L IPID, [id number], TSH3, T3F, FE PRO, [id number], T4T, MG, A1C WTH eA, CBC, PHOS ####[facility]#### INSULIN ####[facility] , Lymphocytes [#/volume] in Bl ood by Automated countOrdered By: Sammie Gonzalez on 05-26-2025 Lymphocytes (Bld) [#/Vol] 2.9 10*3/uL Normal 1.00-4.8 [facility] Comment on above: Order Comment: FASTI [email or web address] Performed By: #### L IPID, [id number], TSH3, T3F, FE PRO, [id number], T4T, MG, A1C WTH eA, CBC, PHOS ####[address]#### INSULIN ####[facility] , Lymphocytes/100 leukocytes i n Blood by Automated countOrdered By: Sammie Gonzalez on 05-26-2025 Lymphocytes/100 WBC (Bld) 34.8 % Normal . [facility] Comment on above: Order Comment: FASTI [email or web address] Performed By: #### L IPID, [id number], TSH3, T3F, FE PRO, [id number], T4T, MG, A1C WTH eA, CBC, PHOS ####[address]#### INSULIN ####[facility] , MCH [Entitic mass] by Automa jana countOrdered By: Sammie Gonzalez on 05-26-2025 MCH (RBC) [Entitic mass] 29.2 pg Normal 24.7-34.3 [facility] Comment on above: Order Comment: FASTI [email or web address] Performed By: #### L IPID, [id number], TSH3, T3F, FE PRO, [id number], T4T, MG, A1C WTH eA, CBC, PHOS ####[address]#### INSULIN ####[facility] , MCHC Auto (RBC) [Mass/Vol]Or dered By: Sammie Gonzalez on 05-26-2025 MCHC (RBC) [Mass/Vol] 33.0 g/dL 32.0-35.0 [facility] MCV [Entitic volume] by Auto mated countOrdered By: Sammie Gonzalez on 05-26-2025 MCV (RBC) [Entitic vol] 88.5 fL Normal 80-100 [facility] Comment on above: Order Comment: FASTI [email or web address] Performed By: #### L IPID, [id number], TSH3, T3F, FE PRO, [id number], T4T, MG, A1C WTH eA, CBC, PHOS ####[address]#### INSULIN ####[facility] , Magnesium [Mass/volume] in S micki or PlasmaOrdered By: Sammie Gonzalez on 05-26-2025 Magnesium [Mass/Vol] 1.8 mg/dL Low 1.9-2.7 [facility] Comment on above: Order Comment: FASTI [email or web address] Performed By: #### L IPID, [id number], TSH3, T3F, FE PRO, [id number], T4T, MG, A1C WTH eA, CBC, PHOS ####[address]#### INSULIN ####[facility] , Monocytes [#/volume] in Bloo d by Automated countOrdered By: Sammie Gonzalez on 05-26-2025 Monocytes (Bld) [#/Vol] 0.9 10*3/uL High 0.0-0.8 [facility] Comment on above: Order Comment: FASTI [email or web address] Performed By: #### L IPID, [id number], TSH3, T3F, FE PRO, [id number], T4T, MG, A1C WTH eA, CBC, PHOS ####[place] [address] [place]#### INSULIN ####[facility] , Monocytes/100 leukocytes in Blood by Automated countOrdered By: Sammie Gonzalez on 05-26-2025 Monocytes/100 WBC (Bld) 11.2 % Normal . [facility] Comment on above: Order Comment: FASTI [email or web address] Performed By: #### L IPID, [id number], TSH3, T3F, FE PRO, [id number], T4T, MG, A1C WTH eA, CBC, PHOS ####[place] [address] [address]#### INSULIN ####[facility] , Neutrophils [#/volume] in Bl ood by Automated countOrdered By: Sammie Gonzalez on 05-26-2025 Neutrophils (Bld) [#/Vol] 4.2 10*3/uL Normal 1.8-7.7 [facility] Comment on above: Order Comment: FASTI [email or web address] Performed By: #### L IPID, [id number], TSH3, T3F, FE PRO, [id number], T4T, MG, A1C WTH eA, CBC, PHOS ####[address]#### INSULIN ####[facility] , Neutrophils/100 leukocytes i n Blood by Automated countOrdered By: Sammie Gonzalez on 05-26-2025 Neutrophils/100 WBC (Bld) 50.3 % Normal . [facility] Comment on above: Order Comment: FASTI [email or web address] Performed By: #### L IPID, [id number], TSH3, T3F, FE PRO, [id number], T4T, MG, A1C WTH eA, CBC, PHOS ####[address]#### INSULIN ####[facility] , No Panel InformationOrdered By: Sammie Gonzalez on 05-26-2025 Pharmacy Creatinine Clearance (Chem N/A [facility] Nucleated erythrocytes [Pres ence] in Blood by Automated countOrdered By: Sammie Gonzalez on 05-26-2025 Nucleated RBC Auto Ql (Bld) 0.1 /100{WBC} 0-0.5 [facility] Phosphate [Mass/volume] in S micki or PlasmaOrdered By: Sammie Gonzalez on 05-26-2025 Phosphate [Mass/Vol] 3.8 mg/dL Normal 2.5-4.5 [facility] Comment on above: Order Comment: FASTI [email or web address] Performed By: #### L IPID, [id number], TSH3, T3F, FE PRO, [id number], T4T, MG, A1C WTH eA, CBC, PHOS ####[facility]#### INSULIN ####[facility] , Platelet mean volume [Entiti c volume] in Blood by Automated countOrdered By: Sammie Gonzalez on 05-26-2025 Platelet mean volume (Bld) [Entitic vol] 8.3 fL Normal 6.3-10.7 [facility] Comment on above: Order Comment: FASTI [email or web address] Performed By: #### L IPID, [id number], TSH3, T3F, FE PRO, [id number], T4T, MG, A1C WTH eA, CBC, PHOS ####[facility]#### INSULIN ####[facility] , Platelets [#/volume] in Bloo d by Automated countOrdered By: Sammie Gonzalez on 05-26-2025 Platelets (Bld) [#/Vol] 421 10*3/uL Normal 150-450 [facility] Comment on above: Order Comment: FASTI [email or web address] Performed By: #### L IPID, [id number], TSH3, T3F, FE PRO, [id number], T4T, MG, A1C WTH eA, CBC, PHOS ####[facility] [place] [address] [place]#### INSULIN ####[facility] , Potassium [Moles/volume] in Serum or PlasmaOrdered By: Sammie Gonzalez on 05-26-2025 Potassium [Moles/Vol] 4.6 mmol/L Normal 3.5-5.1 [facility] Comment on above: Performed By: #### C MP ####[address] Protein [Mass/volume] in Ser um or PlasmaOrdered By: Sammie Gonzalez on 05-26-2025 Protein [Mass/Vol] 6.5 g/dL Normal 6.4-8.9 [facility] Comment on above: Performed By: #### C MP ####[address] Serum globulin measurement b y calculation (mass/volume)Ordered By: Sammie Gonzalez on 05-26-2025 Globulin (S) [Mass/Vol] 2.3 g/dL Normal F [facility] Comment on above: Performed By: #### C MP ####[address] Serum or plasma albumin/glob ulin mass ratioOrdered By: Sammie Gonzalez on 05-26-2025 Albumin/Globulin [Mass ratio] 1.8 {ratio} Normal [facility] Comment on above: Performed By: #### C MP ####[address] Serum or plasma anion gap de terminationOrdered By: Sammie Gonzalez on 05-26-2025 Anion gap [Moles/Vol] 13.2 mmol/L Normal 6.0-15.0 [facility] Comment on above: Performed By: #### C MP ####[address] Serum or plasma insulin kiara urement (units/volume)Ordered By: Sammie Gonzalez on 05-26-2025 Insulin Qn 15.6 u[iU]/mL 2.6-24.9 [facility] Comment on above: Performed at: JAUN fraser [address] [id number] Director: Maxim Daniel PhD, Phone: [phone] Serum or plasma iron binding capacity measurement (mass/volume)Ordered By: Sammie Gonzalez on 05-26-2025 Iron binding capacity [Mass/Vol] 442 ug/dL 255-450 [facility] Serum or plasma iron saturat ion measurement (mass fraction)Ordered By: Sammie Gonzalez on 05-26-2025 Iron saturation [Mass fraction] 10.2 % Low 20-50 [facility] Serum or plasma total choles terol/high density lipoprotein (HDL) cholesterol mass ratOrdered By: Sammie Gonzalez on 05-26-2025 Cholesterol.total/Tali sterol in HDL [Mass ratio] 3.1 {ratio} Normal <5.0 [facility] Comment on above: Order Comment: PIPER FITZGERALDKW Performed By: #### L IPID, [id number], TSH3, T3F, FE PRO, [id number], T4T, MG, A1C WTH eA, CBC, PHOS ####[facility] [id number]#### INSULIN ####[facility] , Sodium [Moles/volume] in Ser um or PlasmaOrdered By: Sammie Gonzalez on 05-26-2025 Sodium [Moles/Vol] 138 mmol/L Normal 136-145 [facility] Comment on above: Performed By: #### C MP ####[address] Thyrotropin [Units/volume] i n Serum or PlasmaOrdered By: Sammie Gonzalez on 05-26-2025 TSH Qn 4.15 m[IU]/L Normal 0.45-5.33 [facility] Comment on above: Order Comment: PIPER [email or web address] Performed By: #### L IPID, [id number], TSH3, T3F, FE PRO, [id number], T4T, MG, A1C WTH eA, CBC, PHOS ####[facility] [id number] [address]#### INSULIN ####[facility] , Thyroxine (T4) [Mass/volume] in Serum or PlasmaOrdered By: Sammie Gonzalez on 05-26-2025 T4 [Mass/Vol] 11.24 ug/dL Normal 5.39-11.82 [facility] Comment on above: Order Comment: FASTI [email or web address] Performed By: #### L IPID, [id number], TSH3, T3F, FE PRO, [id number], T4T, MG, A1C WTH eA, CBC, PHOS ####[facility]#### INSULIN ####[facility] , Transferrin [Mass/volume] in Serum or PlasmaOrdered By: Sammie Gonzalez on 05-26-2025 Transferrin [Mass/Vol] 316 mg/dL Normal 203-362 [facility] Comment on above: Order Comment: FASTI [email or web address] Performed By: #### L IPID, [id number], TSH3, T3F, FE PRO, [id number], T4T, MG, A1C WTH eA, CBC, PHOS ####[place] [address] [address]#### INSULIN ####[facility] , Triglyceride [Mass/volume] i n Serum or PlasmaOrdered By: Sammie Gonzalez on 05-26-2025 Triglyceride [Mass/Vol] 239 mg/dL High 0-149 [facility] Comment on above: TRIG ATP III CLASSIF ICATIONTRIG less than 150 mg/dL NormalTRIG 150-199 mg/dL Borderline highTRIG 200-500 mg/dL High TRIG greater than 500 mg/dL Very highStandard traceable to the Center for Disease Conrtrol and Prevention (CDC) test method. Triiodothyronine (T3) Freeon 05-26-2025 Triiodothyronine (T3) Free 3.72 pg/mL Normal 2.50-3.90 [facility] Comment on above: Order Comment: [email or web address] [email or web address] Result Comment: PERF ORMED BY: [facility] [address] [place] [address] PATHOLOGIST MOTORCOACH OPERATOR BERNARDINO HAMILTON M.D. Performed By: #### L IPID, [id number], TSH3, T3F, FE PRO, [id number], T4T, MG, A1C WTH eA, CBC, PHOS ####[facility]#### INSULIN ####[facility] , Triiodothyronine (T3) Free [ Mass/volume] in Serum or PlasmaOrdered By: Sammie Janice on 05-26-2025 Free T3 [Mass/Vol] 3.72 pg/mL 2.50-3.90 [facility] Urea nitrogen [Mass/volume] in Serum or PlasmaOrdered By: Sammie Gonzalez on 05-26-2025 Urea nitrogen [Mass/Vol] 15 mg/dL Normal 7-25 [facility] Comment on above: Performed By: #### C MP ####[address] Vit. B12/Folate Profileon Folate 30.0 ng/mL Normal >5.9 [facility] Comment on above: Order Comment: PIPER MACHUCAW Result Comment: Jonna te reference range: >5.9 ng/ml The WHO technical consultation on folate and vitamin b12 deficiencies has determined that folate concentrations less than 4 ng/ml are considered deficient. Performed By: #### L IPID, [id number], TSH3, T3F, FE PRO, [id number], T4T, MG, A1C WTH eA, CBC, PHOS ####[address]#### INSULIN ####[facility] , Vitamin B12 ser/plasOrdered By: Sammie Gonzalez on 05-26-2025 Cobalamin (Vitamin B12) [Mass/Vol] 484 pg/mL Normal 180-914 [facility] Comment on above: Order Comment: PIPER MACHUCAW Performed By: #### L IPID, [id number], TSH3, T3F, FE PRO, [id number], T4T, MG, A1C WTH eA, CBC, PHOS ####[place] [address] [place]#### INSULIN ####[facility] , Vitamin D 25 Hydroxy Totalon 05-26-2025 Vitamin D 25 Hydroxy Total 31.9 ng/mL Normal 30-100 [facility] Comment on above: Order Comment: PIPER YANCEY Result Comment: THERESE MIN D STATUS 25(OH)VITAMIN D RANGE (ng/mL) Deficient <20 Insufficient 20 to <30 Sufficient 30 to 100 Reference: Anum Berry, Brynn APARICIO et al. Evaluation,treatment, and prevention of vitamin D deficiency; an Endocrine Society clinical practice guideline. JCEM. 2010; 96(7):1911-30. PERFORMED BY: [facility] [address] [place] [address] PATHOLOGIST MOTORCOACH OPERATOR BERNARDINO HAMILTON M.D. Performed By: #### L IPID, [id number], TSH3, T3F, FE PRO, [id number], T4T, MG, A1C WTH eA, CBC, PHOS ####[facility] [id number] [address]#### INSULIN ####[facility] , Vitamin D+Metabolites [Mass/ volume] in Serum or PlasmaOrdered By: Sammei Gonzalez on 05-26-2025 Vitamin D+Metabolites [Mass/Vol] 31.9 ng/mL 30-100 [facility] Comment on above: VITAMIN D STATUS 25( [place])VITAMIN D RANGE (ng/mL) Deficient <20 Insufficient 20 to <30Sufficient 30 to 100Reference: Anum Berry, Brynn APARICIO, et al. Evaluation,treatment, and prevention of vitamin D deficiency; an Endocrine Society clinical practice guideline. JCEM. 2010; 96(7):1911-30. CNOVon 03-15-2025 CNOV Office Visit ([facility] ) KOURTNEY NOVAK ([id number]) 1975 F Date Time Provider Department 03/15/25 [...] No Does patient want to see a Healthcare Administrator? No (yes to any of above refer [...] and [facility] AND [facility] [place], [facility] CC: Patient Care Team: Sammie [...] changes. PLAN: - Send a picture in MyChart on Thursday. - Bactrim DS x 5 [...] pioglitazone (A (more content not included)... Normal [facility] 03-08-[address] [facility] Telephone ([facility]) KOURTNEY NOVAK ([id number]) 1975 F Date Time Provider Department 03/08/25 MARIO ALBERTO PHILLIPS [facility] During your visit today, we recorded [...] Status:Closed by [facility] ([facility] KOURTNEY NOVAK ([id number]) 1975 Date Time Provider Department 03/06/25 10:30 AM [facility] During your visit today, we recorded the following information about you: Temperature Pulse Respiration Blood pressure 99.2 degrees 93/minute 18/minute 149/64 Weight 108.9 kg Britton Tamez LPN 03/06/2025 2:25 PM Signed Additional intake questions: Has the patient had fever, nausea, vomiting, diarrhea, constipation, fatigue for > 1 week? No Does the patient have a decreased appetite? No Does patient want to see a Healthcare Administrator? No (yes to any of above refer [...] request and reach out to her through [employer] with a reply. Mario Alberto Phillips RN, Principal Embedded Software Engineer Allergies As of Date: 03/06/2025 (No Known [...] 24 mcg (more content not included)... Normal [facility] Kathy 02-23-2025 JOSSIEN Telephone ([facility]) MARINOKOURTNEY ([id number]) 1975 F Date Time Provider Department 02/23/25 [place] AL[facility]ERT[place] PHILL[place] [facility] During your visit today, we recorded the [...] Reviewed med list and sent patient a Fluid-1 message for alternating Ibuprofen and Tylenol for headache/pain as needed Confirmed postop appointments Patient was made aware to reach out for questions/ concerns/updates. Mario Alberto Phillips RN, Principal Embedded Software Engineer Allergies As of Date: 02/23/2025 (No Known [...] Status:Closed by MARIO ALBERTO PHILLIPS on 02/23/25 [facility] ALLIED HEALTHon 02-22-2025 ALLIED HEALTH HNO ID: [id number] Author: ANNALISA ENRIQUEZ Chaplain Service: Spiritual Care Author Type: Cdl A Driver Type: Allied Health Filed: 02/22/2025 15:39 Note Text: SPIRITUALCARE Spiritual Care Visit- Brief Note Name: Kourtney Novak Date: February 22, 2025 Notes: The para operator met with the patient's family at the bedside, introducing himself and providing information about the availability of spiritual care services. The patient expressed gratitude for the visit but declined any support for the moment. Follow-up will be provided as circumstances allow. [place] further [place] [phone]. Cdl A Driver services are available 06/04. SIGNATURE: Chaplain Hiro PATIENT NAME: Kourtney Novak DATE: February 22, 2025 TIME: 3:39 PM This is an electronically created document. IF PRINTED, PLEASE DO NOT REMOVE FROM THE CHART OR MODIFY PRINTED COPY. Normal [facility] CNDSon 02-22-2025 [facility] HNO ID: [id number] Author: ERIK PINEDA MD Service: Neurosurgery Author [...] M.D. - Office PCP: Sammie Gonzalez MD [phone] Treatment Team: Attending Provider: Erik Pineda MD [...] The patient was electively admitted to the [facility]. After being optimized for surgery by [...] The patient was then transferred up to [place] [address]/[id number] hospital room for postoperative management. Patient was [...] Primary Emergency Contact: Christiano Saini Address: [address] [id number] [facility] Mobile Relation: Son Secondary Emergency Contact: Laith Saini Address: [address] [phone] [facility] Mobile Relation: Son ALLERGIES: ALLERGIES No Known Allergies HOME MEDICATIONS: Medication List START taking these medications acetaminophen 325 mg tablet Commonly known as: TYLENOL 2 tablets by ORAL/FEEDING TUBE rou (more content not included)... Normal [facility] THERAPY NTon 02-22-2025 THERAPY NT HNO ID: [id number] Author: OLIVIA WOLFF, PT Service: Physical Therapy Author Type: Physical Therapist Type: Therapy (PT/OT/Speech/Resp) Filed: 02/22/2025 13:12 Note Text: PHYSICAL THERAPY MISSED VISIT SERVICE DATE: 02/22/2025 SERVICE TIME: 1140 ROOM: [place] [address] Patient not seen due to Declined to Participate. Pt denies concerns for home going, declines stair training before d/c. No further acute PT needs, all concerns addressed. PT to sign off. 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 Denies falls. Lives with adult [...] (ADL) TREATMENT INTERVENTIONS Evaluation, Self Long-Term Management (89883) Timed Code Treatment (minutes): 8 Skilled Treatment Time (minutes): 23 TRAINING AND EDUCATION PROVIDED Activity Adaptation/Compensato ry Strategies, Benefits of In-Hospital Mobility, Disease Specific Education, Discharge Planning, Expected Functional Level, Functional Mobility Involving ADLs, Lower Extremity Dressing, Pain Management, Precautions/Restricti ons, Role of Occupational Therapy, Standing Balance to Improve [place] with ADLs/Self-Care, Transfer - Sit to Stand, [...] DATE: February 22, 2025 TIME: 11:36 AM [facility] 02-21-2025 [facility] HNO ID: [id number] Author: TIM ALTAMIRANO Student Service: Spiritual Care Author Type: Student Type: [facility] Filed: 02/21/2025 14:17 Note Text: SPIRITUALCARE Spiritual [...] FROM THE CHART OR MODIFY PRINTED COPY. [facility] HNO ID: [id number] Author: TRIPP DALLAS RT(R) Service: Radiology Author Type: Nurse Specialist Type: [facility] Filed: 02/21/2025 10:15 Note Text: Radiology Service [...] PATIENT PRESENTS WITH AN IMPLANTABLE OR ATTACHED UTILITY SYSTEMS REPAIRER OPERATOR: No RADIOLOGY DEPARTMENT: MR; Exam(s) Completed: Head: Routine Brain. Lavender Administered: Yes PERIPHERAL IV DATA: Inpatient: see LDA documentation SIGNED BY: RT Kenneth(R) February 21, 2025 9:22 AM Normal [facility] Basic metabolic 2000 panelon 02-21-2025 Anion gap [Moles/Vol] 13 mmol/L Normal 8-15 [facility] Comment on above: Order Comment: Speci men Type: BLOOD SPECIMENOrdering Facility: Address: [address] [place] [address] Performed By: #### 2 4321-2 ####[facility] LABCL[facility] [id number] [place] [address] [place] Calcium [Mass/Vol] 8.8 mg/dL Normal 8.5-10.2 [facility] Comment on above: Order Comment: Speci men Type: BLOOD SPECIMENOrdering Facility: Address: [address] [place] [address] Performed By: #### 2 4321-2 ####[facility] LABCL[facility] [id number] [place] [address] [place] Chloride [Moles/Vol] 105 mmol/L Normal 98-107 [facility] Comment on above: Order Comment: Speci men Type: BLOOD SPECIMENOrdering Facility: Address: [address] [place] [address] Performed By: #### 2 4321-2 ####[facility]CL[facility] [id number] [place] [id number] [place] CO2 [Moles/Vol] 20 mmol/L Low 22-30 [facility] Comment on above: Order Comment: Speci men Type: BLOOD SPECIMENOrdering Facility: Address: [address] [place] [address] Performed By: #### 2 4321-2 ####[facility]CL[facility] [id number] [address] [place] Creatinine [Mass/Vol] 0.75 mg/dL Normal 0.58-0.96 [facility] Comment on above: Order Comment: Adelaida casillas Type: BLOOD SPECIMENOrdering Facility: Address: [address] [place] [address] Performed By: #### 2 4321-2 ####[facility] LABIA [id number] [place] [address] [facility] Creatinine and Glomerular filtration rate.predicted panel (S/P/Bld) 99 mL/min/1.73m??? Normal >=60 [facility] Comment on above: Order Comment: Adelaida casillas Type: BLOOD SPECIMENOrdering Facility: Address: [address] [place] [address] Result Comment: Heather mated Glomerular Filtration Rate [...] actual GFR. Performed By: #### 2 4321-2 ####[facility]IA [id number] [place] [address] [place] Glucose [Mass/Vol] 131 mg/dL High 74-99 [facility] Comment on above: Order Comment: Adelaida casillas Type: BLOOD SPECIMENOrdering Facility: Address: [address] [place] [address] Result Comment: The [place] Diabetes [employer] (ADA) provides guidance for cutoff [...] Standards of Medical Care in Diabetes 2016, [place] [employer]. Diabetes Care. 2016.39(Suppl 1). Performed By: #### 2 4321-2 ####[facility] [id number] [place] [address] [place] Potassium [Moles/Vol] 4.2 mmol/L Normal 3.7-5.1 [facility] Comment on above: Order Comment: Speci men Type: BLOOD SPECIMENOrdering Facility: Address: [address] [place] [address] Performed By: #### 2 4321-2 ####[facility] LABIA [id number] [place] [address] [place] Sodium [Moles/Vol] 138 mmol/L Normal 136-144 [facility] Comment on above: Order Comment: Speci men Type: BLOOD SPECIMENOrdering Facility: Address: [address] [place] [address] Performed By: #### 2 4321-2 ####[facility] LABIA [id number] [place] [address] [place] Urea nitrogen [Mass/Vol] 8 mg/dL Normal 7-21 [facility] Comment on above: Order Comment: Speci men Type: BLOOD SPECIMENOrdering Facility: Address: [address] [place] [address] Performed By: #### 2 4321-2 ####[facility] LABIA [id number] [place] [address] [place] CBC W Auto Differential pane l (Bld)on 02-21-2025 Basophils (Bld) [#/Vol] 10*3/uL Normal <0.11 [facility] Comment on above: Order Comment: Speci men Type: BLOOD SPECIMENOrdering Facility: Address: [address] [place], [place] [address] Performed By: #### 5 7021-8 ####[facility] LABCL[facility] [id number] [address], [place] [address] [place] Basophils/100 WBC (Bld) 0.1 % Normal [facility] Comment on above: Order Comment: Speci men Type: BLOOD SPECIMENOrdering Facility: Address: [address] [place] [address] Performed By: #### 5 7021-8 ####[facility] LABCLIA [id number] [address], [place] [address] [place] Differential cell count method Nom (Bld) Auto Normal [facility] Comment on above: Order Comment: Speci men Type: BLOOD SPECIMENOrdering Facility: Address: [address] [place] [address] Performed By: #### 5 7021-8 ####[facility]CL[facility] [id number] [address], [place] [address] [place] Eosinophils (Bld) [#/Vol] 10*3/uL Normal <0.46 [facility] Comment on above: Order Comment: Speci men Type: BLOOD SPECIMENOrdering Facility: Address: [address] [place] [address] Performed By: #### 5 7021-8 ####[facility]CL[facility] [id number] [address] [place] Eosinophils/100 WBC (Bld) 0.0 % Normal [facility] Comment on above: Order Comment: Speci men Type: BLOOD SPECIMENOrdering Facility: Address: [address] [place] [address] Performed By: #### 5 7021-8 ####[facility] LABCLIA [id number] [address], [facility] [place] Erythrocyte distribution width (RBC) [Ratio] 13.2 % Normal 11.5-15.0 [facility] Comment on above: Order Comment: Speci men Type: BLOOD SPECIMENOrdering Facility: Address: [address] [place] [address] Performed By: #### 5 7021-8 ####[facility] LABIA [id number] [address] [address] [place] Hematocrit (Bld) [Volume fraction] 34.6 % Low 36.0-46.0 [facility] Comment on above: Order Comment: Speci men Type: BLOOD SPECIMENOrdering Facility: Address: [address] [place] [address] Performed By: #### 5 7021-8 ####[facility] LABIA [id number] [place] [address] [place] Hemoglobin (Bld) [Mass/Vol] 11.2 g/dL Low 11.5-15.5 [facility] Comment on above: Order Comment: Speci men Type: BLOOD SPECIMENOrdering Facility: Address: [address] [place] [address] Performed By: #### 5 7021-8 ####[facility] LABIA [id number] [place] [address] [place] Immature granulocytes (Bld) [#/Vol] 0.05 10*3/uL Normal <0.10 [facility] Comment on above: Order Comment: Speci men Type: BLOOD SPECIMENOrdering Facility: Address: [address] [place] [address] Performed By: #### 5 7021-8 ####[facility] LABIA [id number] [place] [address] [place] Immature granulocytes/100 WBC (Bld) 0.4 % Normal [facility] Comment on above: Order Comment: Speci men Type: BLOOD SPECIMENOrdering Facility: Address: [address] [place] [address] Performed By: #### 5 7021-8 ####[facility]CLIA [id number] [place] [address] [place] Lymphocytes (Bld) [#/Vol] 0.87 10*3/uL Low 1.00-4.00 [facility] Comment on above: Order Comment: Speci men Type: BLOOD SPECIMENOrdering Facility: Address: [address] [place] [address] Performed By: #### 5 7021-8 ####[facility]CL[facility] [id number] [place] [address] [place] Lymphocytes/100 WBC (Bld) 6.8 % Normal [facility] Comment on above: Order Comment: Speci men Type: BLOOD SPECIMENOrdering Facility: Address: [address] [place] [address] Performed By: #### 5 7021-8 ####[facility] LABIA [id number] [place] [address] [place] MCH (RBC) [Entitic mass] 29.7 pg Normal 26.0-34.0 [facility] Comment on above: Order Comment: Speci men Type: BLOOD SPECIMENOrdering Facility: Address: [address] [place] [address] Performed By: #### 5 7021-8 ####[facility]CLIA [id number] [place] [address] [place] MCHC (RBC) [Mass/Vol] 32.4 g/dL Normal 30.5-36.0 [facility] Comment on above: Order Comment: Speci men Type: BLOOD SPECIMENOrdering Facility: Address: [address] [place] [address] Performed By: #### 5 7021-8 ####[facility] LABIA [id number] [place] [address] [place] MCV (RBC) [Entitic vol] 91.8 fL Normal 80.0-100.0 [facility] Comment on above: Order Comment: Speci men Type: BLOOD SPECIMENOrdering Facility: Address: [address] [place] [address] Performed By: #### 5 7021-8 ####[facility] LABCLIA [id number] [facility] [place] [address] [place] Monocytes (Bld) [#/Vol] 0.94 10*3/uL High <0.87 [facility] Comment on above: Order Comment: Speci men Type: BLOOD SPECIMENOrdering Facility: Address: [address] [place] [address] Performed By: #### 5 7021-8 ####[facility] LABCLIA [id number] [facility] [place] [address] [place] Monocytes/100 WBC (Bld) 7.3 % Normal C [facility] Comment on above: Order Comment: Speci men Type: BLOOD SPECIMENOrdering Facility: Address: [address] [place] [address] Performed By: #### 5 7021-8 ####[facility] LABCLIA [id number] [place] [address] [place] Neutrophils (Bld) [#/Vol] 10.95 10*3/uL High 1.45-7.50 [facility] Comment on above: Order Comment: Speci men Type: BLOOD SPECIMENOrdering Facility: Address: [address] [place] [address] Performed By: #### 5 7021-8 ####[facility]CLIA [id number] [place] [address] [place] Neutrophils/100 WBC (Bld) 85.4 % Normal [facility] Comment on above: Order Comment: Speci men Type: BLOOD SPECIMENOrdering Facility: Address: [address] [place] [address] Performed By: #### 5 7021-8 ####[facility]CLIA [id number] [address], [place] [address] [place] Nucleated RBC (Bld) [#/Vol] 10*3/uL Normal <0.01 [facility] Comment on above: Order Comment: Speci men Type: BLOOD SPECIMENOrdering Facility: Address: [address] [place] [address] Performed By: #### 5 7021-8 ####[facility]CLIA [id number] [address], [place] [address] [place] Nucleated RBC/100 WBC (Bld) [Ratio] 0.0 /100 WBC Normal [facility] Comment on above: Order Comment: Speci men Type: BLOOD SPECIMENOrdering Facility: Address: [address] [place] [address] Performed By: #### 5 7021-8 ####[facility] LABIA [id number] [address], [place] [address] [place] Platelet mean volume (Bld) [Entitic vol] 10.5 fL Normal 9.0-12.7 [facility] Comment on above: Order Comment: Speci men Type: BLOOD SPECIMENOrdering Facility: Address: [address] [place] [address] Performed By: #### 5 7021-8 ####[facility] LABCLIA [id number] [address] [place] [address] [place] Platelets (Bld) [#/Vol] 309 10*3/uL Normal 150-400 [facility] Comment on above: Order Comment: Speci men Type: BLOOD SPECIMENOrdering Facility: Address: [address] [place] [address] Performed By: #### 5 7021-8 ####[facility]CLIA [id number] [address] [place] [address] [place] RBC (Bld) [#/Vol] 3.77 10*6/uL Low 3.90-5.20 [facility] Comment on above: Order Comment: Speci men Type: BLOOD SPECIMENOrdering Facility: Address: [address] [place] [address] Performed By: #### 5 7021-8 ####[facility]CLIA [id number] [place] [address] [place] WBC (Bld) [#/Vol] 12.82 10*3/uL High 3.70-11.00 [facility] Comment on above: Order Comment: Speci men Type: BLOOD SPECIMENOrdering Facility: Address: [address] [place] [address] Performed By: #### 5 7021-8 ####[facility] LABCLIA [id number] [address] [place] MRI BRAIN WO/W IVCONon 02-21 MRI BRAIN WO/W IVCON * * *Final Report* * * DATE OF EXAM: Feb 21 2025 11:17AM [facility] 0295 - MRI BRAIN WO/W IVCON / 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 No residual mass or pathologic enhancement. Director Financial Services: [employer] Transcribe Date/Time: Feb 21 2025 11:17A Dictated by : CHIKA RUBY MD This examination was interpreted and the report reviewed and electronically signed by: TOMAS TAMEZ MD on Feb 21 2025 11:58AM EST [id number] Normal [facility] NURSING PROGon 02-21-2025 NURSING PROG HNO ID: [id number] Author: MICHELLE BAEZ RN Service: Nursing Author [...] Neri PATIENT DISCHARGED TO: Patient transferred to [facility]. Report called to RN. SIGNED BY: Michelle Baez RN February 21, 2025 10:07 AM Normal [facility] NURSING PROG HNO ID: [id number] Author: MICHELLE BAEZ RN Service: Nursing Author [...] February 21, 2025 TIME: 9:09 AM Normal [facility] NUTRITIONon 02-21-2025 NUTRITION HNO ID: [id number] Author: ZEINAB SUMMERS RD Service: Nutrition Therapy Author Type: Registered Dietitian Type: Nutrition Filed: 02/21/2025 17:21 Note Text: NUTRITION THERAPY SCREEN NOTE SERVICE DATE: 02/21/2025 SERVICE TIME: Start Time: 1305 Care Plan: Continue current diet (carb controlled) Refer to: Game Tester to Follow Discharge Recommendations: Diet Diet: carb [...] (mins): 3 SIGNATURE:Zeinab Summers RDN, LD, MS, [facility] PATIENT NAME: Kourtney Novak DATE: February 21, 2025 TIME: 5:20 PM Normal [facility] THERAPY NTon 02-21-2025 THERAPY NT HNO ID: [id number] Author: OLIVIA WOLFF, PT Service: Physical Therapy Author Type: Physical Therapist Type: Therapy (PT/OT/Speech/Resp) Filed: 02/21/2025 12:40 Note Text: Physical Therapy Evaluation Summary SERVICE DATE: 02/21/2025 SERVICE TIME: 1145 to 1208 ROOM: [place] [address] PT 6 Clicks Score: 20 DISCHARGE RECOMMENDATIONS [...] 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 Denies falls. Lives with adult son and brother who both work and are IND in the home. SUBJECTIVE Agreeable to PT THERAPY DIAGNOSIS Reduced mobility-other TREATMENT INTERVENTIONS Evaluation, Gait Training (27886) Timed Code Treatment (minutes): 8 Skilled Treatment [...] February 21, 2025 TIME: 12:40 PM Normal [facility] ANES POSTPROC EVALon 025 ANES POSTPROC EVAL HNO ID: [id number] Author: PAULINO RAMACHANDRAN DO Service: ? Author Type: Anesthesiologist Type: Anesthesia Postprocedure Evaluation Filed: 02/20/2025 18:52 Note Text: POST ANESTHESIA EVALUATION NOTE : 1975 Procedure Summary Date: 02/20/25 Room / Location: [address] [facility] Anesthesia Start: 1221 Anesthesia [...] February 20, 2025 TIME: 6:17 PM CSN: [id number] Normal [facility] ANES PRE-OPon 02-20-2025 ANES PRE-OP HNO ID: [id number] Author: PAULINO RAMACHANDRAN DO Service: ? Author [...] and consent discussed: yes. Patient / Responsible Libertarian agrees to proceed: yes Patient / Surrogate [...] February 20, 2025 TIME: 12:10 PM CSN: [id number] Normal [facility] ARTERIAL BLOOD GASES WITH IO NIZED MAGNESIUMon 02-20-2025 Base deficit (BldA) [Moles/Vol] -4 mmol/L Low -2-0 [facility] Comment on above: Order Comment: Speci men Type: ARTERIAL BLOOD SPECIMENOrdering Facility: Address: [address] [place] [address] Performed By: #### A LLMG ####[facility] LABCLIA [id number] [place] [address] [place] Calcium.ionized (Bld) [Mass/Vol] 1.11 mmol/L Normal 1.08-1.30 [facility] Comment on above: Order Comment: Speci men Type: ARTERIAL BLOOD SPECIMENOrdering Facility: Address: [address] [place] [address] Performed By: #### A LLMG ####[facility]CLIA [id number] [place] [address] [place] Calcium.ionized adjusted to pH 7.4 (BldA) [Moles/Vol] 1.12 mmol/L Normal 1.08-1.30 [facility] Comment on above: Order Comment: Speci men Type: ARTERIAL BLOOD SPECIMENOrdering Facility: Address: [address] [place] [address] Performed By: #### A LLMG ####[facility]CL[facility] [id number] [place] [address] [place] Carboxyhemoglobin (BldA) [Mass fraction] 0.6 % Normal 0.0-2.0 [facility] Comment on above: Order Comment: Speci men Type: ARTERIAL BLOOD SPECIMENOrdering Facility: Address: [address] [place] [address] Result Comment: Carb oxyhemoglobin Reference Range for Smokers: 2.0-8.0% Performed By: #### A LLMG ####[facility]CL[facility] [id number] [place] [address] [place] CO2 (Bld) [Partial pressure] 33 mm Hg Low 36-46 [facility] Comment on above: Order Comment: Speci men Type: ARTERIAL BLOOD SPECIMENOrdering Facility: Address: [address] [place] [address] Performed By: #### A LLMG ####[facility]CL[facility] [id number] [place] [address] [place] CO2 adjusted to patient's actual temperature (Bld) [Partial pressure] 33 mmHg Low 36-46 [facility] Comment on above: Order Comment: Speci men Type: ARTERIAL BLOOD SPECIMENOrdering Facility: Address: [address] [place] [address] Performed By: #### A LLMG ####[facility]CL[facility] [id number] [place] [address] [place] Glucose [Mass/Vol] 113 mg/dL High 60-105 [facility] Comment on above: Order Comment: Speci men Type: ARTERIAL BLOOD SPECIMENOrdering Facility: Address: [address] [place] [address] Performed By: #### A LLMG ####[facility]CL[facility] [id number] [place] [address] [place] HCO3 (Bld) [Moles/Vol] 20 mmol/L Low 22-26 [facility] Comment on above: Order Comment: Speci men Type: ARTERIAL BLOOD SPECIMENOrdering Facility: Address: [address] [place] [address] Performed By: #### A LLMG ####[facility]CL[facility] [id number] [place] [address] [place] Hematocrit (Bld) [Volume fraction] 32.7 % Low 36.0-46.0 [facility] Comment on above: Order Comment: Speci men Type: ARTERIAL BLOOD SPECIMENOrdering Facility: Address: [address] [place] [address] Performed By: #### A LLMG ####[facility]CL[facility] [id number] [place] [address] [place] Hemoglobin (Bld) [Mass/Vol] 10.6 g/dL Low 11.5-15.5 [facility] Comment on above: Order Comment: Speci men Type: ARTERIAL BLOOD SPECIMENOrdering Facility: Address: [address] [place] [address] Performed By: #### A LLMG ####[facility]IA [id number] [place] [address] [place] Lactate [Moles/Vol] 1.0 mmol/L Normal 0.5-2.2 [facility] Comment on above: Order Comment: Speci men Type: ARTERIAL BLOOD SPECIMENOrdering Facility: Address: [address] [place] [address] Performed By: #### A LLMG ####[facility]IA [id number] [place] [address] [place] Magnesium [Moles/Vol] 0.42 mmol/L Low 0.45-0.60 [facility] Comment on above: Order Comment: Speci men Type: ARTERIAL BLOOD SPECIMENOrdering Facility: Address: [address] [place] [address] Performed By: #### A LLMG ####[facility]IA [id number] [place] [address] [place] Methemoglobin (Bld) [Mass fraction] 2.1 % High 0.0-1.5 [facility] Comment on above: Order Comment: Speci men Type: ARTERIAL BLOOD SPECIMENOrdering Facility: Address: [address] [place] [address] Performed By: #### A LLMG ####[facility] LABIA [id number] [place] [address] [place] Oxygen (Bld) [Partial pressure] 208 mm Hg High 85-95 [facility] Comment on above: Order Comment: Speci men Type: ARTERIAL BLOOD SPECIMENOrdering Facility: Address: [address] [place] [address] Performed By: #### A LLMG ####[facility] LABCLIA [id number] [address] [place] [address] [place] Oxygen adjusted to patient's actual temperature (Bld) [Partial pressure] 208 mmHg High 85-95 [facility] Comment on above: Order Comment: Speci men Type: ARTERIAL BLOOD SPECIMENOrdering Facility: Address: [address] [place], [place] [address] Performed By: #### A LLMG ####[facility] LABCLIA [id number] [address] [address] [place] Oxyhemoglobin (BldA) [Mass fraction] 96 % Normal 95-98 [facility] Comment on above: Order Comment: Speci men Type: ARTERIAL BLOOD SPECIMENOrdering Facility: Address: [address] [place], [place] [address] Performed By: #### A LLMG ####[facility]CLIA [id number] [address] [address] [place] pH (Bld) 7.41 [pH] Normal 7.35-7.45 [facility] Comment on above: Order Comment: Speci men Type: ARTERIAL BLOOD SPECIMENOrdering Facility: Address: [address] [place] [address] Performed By: #### A LLMG ####[facility]CLIA [id number] [address] [address] [place] pH adjusted to patient's actual temperature (Bld) 7.41 Normal 7.35-7.45 [facility] Comment on above: Order Comment: Speci men Type: ARTERIAL BLOOD SPECIMENOrdering Facility: Address: [address] [place] [address] Performed By: #### A LLMG ####[facility] LABCLIA [id number] [place] [address] [place] Potassium [Moles/Vol] 4.2 mmol/L Normal 3.5-5.0 [facility] Comment on above: Order Comment: Speci men Type: ARTERIAL BLOOD SPECIMENOrdering Facility: Address: [address] [place] [address] Performed By: #### A LLMG ####[facility] LABCLIA [id number] [place] [address] [place] Sodium [Moles/Vol] 137 mmol/L Normal 136-144 [facility] Comment on above: Order Comment: Speci men Type: ARTERIAL BLOOD SPECIMENOrdering Facility: Address: [address] [place] [address] Performed By: #### A LLMG ####[facility] LABIA [id number] [place] [address] [place] Base deficit (BldA) [Moles/Vol] -3 mmol/L Low -2-0 [facility] Comment on above: Order Comment: Speci men Type: ARTERIAL BLOOD SPECIMENOrdering Facility: Address: [address] [place] [address] Performed By: #### A LLMG ####[facility] LABCLIA [id number] [place] [address] [place] Calcium.ionized (Bld) [Mass/Vol] 1.20 mmol/L Normal 1.08-1.30 [facility] Comment on above: Order Comment: Speci men Type: ARTERIAL BLOOD SPECIMENOrdering Facility: Address: [address] [place] [address] Performed By: #### A LLMG ####[facility] LABIA [id number] [place] [address] [place] Calcium.ionized adjusted to pH 7.4 (BldA) [Moles/Vol] 1.19 mmol/L Normal 1.08-1.30 [facility] Comment on above: Order Comment: Speci men Type: ARTERIAL BLOOD SPECIMENOrdering Facility: Address: [address] [place] [address] Performed By: #### A LLMG ####[facility] LABCLIA [id number] [place] [address] [place] Carboxyhemoglobin (BldA) [Mass fraction] 1.0 % Normal 0.0-2.0 [facility] Comment on above: Order Comment: Speci men Type: ARTERIAL BLOOD SPECIMENOrdering Facility: Address: [address] [place] [address] Result Comment: Carb oxyhemoglobin Reference Range for Smokers: 2.0-8.0% Performed By: #### A LLMG ####[facility]CLIA [id number] [place] [address] [place] CO2 (Bld) [Partial pressure] 37 mm Hg Normal 36-46 [facility] Comment on above: Order Comment: Speci men Type: ARTERIAL BLOOD SPECIMENOrdering Facility: Address: [address] [place] [address] Performed By: #### A LLMG ####[facility]CLIA [id number] [place] [address] [place] CO2 adjusted to patient's actual temperature (Bld) [Partial pressure] 37 mmHg Normal 36-46 [facility] Comment on above: Order Comment: Speci men Type: ARTERIAL BLOOD SPECIMENOrdering Facility: Address: [address] [place] [address] Performed By: #### A LLMG ####[facility] LABCLIA [id number] [place] [id number] [place] Glucose [Mass/Vol] 114 mg/dL High 60-105 [facility] Comment on above: Order Comment: Speci men Type: ARTERIAL BLOOD SPECIMENOrdering Facility: Address: [address] [place] [address] Performed By: #### A LLMG ####[facility] LABCLIA [id number] [place] [address] [place] HCO3 (Bld) [Moles/Vol] 21 mmol/L Low 22-26 [facility] Comment on above: Order Comment: Speci men Type: ARTERIAL BLOOD SPECIMENOrdering Facility: Address: [address] [place] [address] Performed By: #### A LLMG ####[facility]CL[facility] [id number] [place] [address] [place] Hematocrit (Bld) [Volume fraction] 35.4 % Low 36.0-46.0 [facility] Comment on above: Order Comment: Speci men Type: ARTERIAL BLOOD SPECIMENOrdering Facility: Address: [address] [place] [address] Performed By: #### A LLMG ####[facility] LABCLIA [id number] [place] [address] [place] Hemoglobin (Bld) [Mass/Vol] 11.5 g/dL Normal 11.5-15.5 [facility] Comment on above: Order Comment: Speci men Type: ARTERIAL BLOOD SPECIMENOrdering Facility: Address: [address] [place] [address] Performed By: #### A LLMG ####[facility]CL[facility] [id number] [place] [address] [place] Lactate [Moles/Vol] 0.9 mmol/L Normal 0.5-2.2 [facility] Comment on above: Order Comment: Speci men Type: ARTERIAL BLOOD SPECIMENOrdering Facility: Address: [address] [place] [address] Performed By: #### A LLMG ####[facility]CLIA [id number] [address] [place] [address] [place] Magnesium [Moles/Vol] 0.72 mmol/L High 0.45-0.60 [facility] Comment on above: Order Comment: Speci men Type: ARTERIAL BLOOD SPECIMENOrdering Facility: Address: [address] [place] [address] Performed By: #### A LLMG ####[facility]CL[facility] [id number] [address] [address] [place] Methemoglobin (Bld) [Mass fraction] 1.6 % High 0.0-1.5 [facility] Comment on above: Order Comment: Speci men Type: ARTERIAL BLOOD SPECIMENOrdering Facility: Address: [address] [place] [address] Performed By: #### A LLMG ####[facility]CL[facility] [id number] [address] [address] [place] Oxygen (Bld) [Partial pressure] 299 mm Hg High 85-95 [facility] Comment on above: Order Comment: Speci men Type: ARTERIAL BLOOD SPECIMENOrdering Facility: Address: [address] [place], [place] [address] Performed By: #### A LLMG ####[facility] LABIA [id number] [address] [address] [place] Oxygen adjusted to patient's actual temperature (Bld) [Partial pressure] 299 mmHg High 85-95 [facility] Comment on above: Order Comment: Speci men Type: ARTERIAL BLOOD SPECIMENOrdering Facility: Address: [address] [place], [place] [address] Performed By: #### A LLMG ####[facility]CL[facility] [id number] [address] [address] [place] Oxyhemoglobin (BldA) [Mass fraction] 97 % Normal 95-98 [facility] Comment on above: Order Comment: Speci men Type: ARTERIAL BLOOD SPECIMENOrdering Facility: Address: [address] [place] [address] Performed By: #### A LLMG ####[facility]CLIA [id number] [place] [address] [place] pH (Bld) 7.38 [pH] Normal 7.35-7.45 [facility] Comment on above: Order Comment: Speci men Type: ARTERIAL BLOOD SPECIMENOrdering Facility: Address: [address] [place] [address] Performed By: #### A LLMG ####[facility]CL[facility] [id number] [place] [address] [place] pH adjusted to patient's actual temperature (Bld) 7.38 Normal 7.35-7.45 [facility] Comment on above: Order Comment: Speci men Type: ARTERIAL BLOOD SPECIMENOrdering Facility: Address: [address] [place] [address] Performed By: #### A LLMG ####[facility] LABIA [id number] [place] [address] [place] Potassium [Moles/Vol] 4.2 mmol/L Normal 3.5-5.0 [facility] Comment on above: Order Comment: Speci men Type: ARTERIAL BLOOD SPECIMENOrdering Facility: Address: [address] [place] [address] Performed By: #### A LLMG ####[facility]CLIA [id number] [place] [address] [place] Sodium [Moles/Vol] 139 mmol/L Normal 136-144 [facility] Comment on above: Order Comment: Speci men Type: ARTERIAL BLOOD SPECIMENOrdering Facility: Address: [address] [place] [address] Performed By: #### A LLMG ####[facility]CLIA [id number] [address] [address] [place] Basic metabolic 2000 panelon 02-20-2025 Anion gap [Moles/Vol] 12 mmol/L Normal 8-15 [facility] Comment on above: Order Comment: Speci men Type: BLOOD SPECIMENOrdering Facility: Address: [address] [place] [address] Performed By: #### 2 4321-2 ####[facility] LABCLIA [id number] [place] [address] [place] Calcium [Mass/Vol] 9.4 mg/dL Normal 8.5-10.2 [facility] Comment on above: Order Comment: Speci men Type: BLOOD SPECIMENOrdering Facility: Address: [address] [place] [address] Performed By: #### 2 4321-2 ####[facility] LABCLIA [id number] [place] [address] [place] Chloride [Moles/Vol] 105 mmol/L Normal 98-107 [facility] Comment on above: Order Comment: Speci men Type: BLOOD SPECIMENOrdering Facility: Address: [address] [place] [address] Performed By: #### 2 4321-2 ####[facility]CLIA [id number] [place] [address] [place] CO2 [Moles/Vol] 20 mmol/L Low 22-30 [facility] Comment on above: Order Comment: Speci men Type: BLOOD SPECIMENOrdering Facility: Address: [address] [place] [address] Performed By: #### 2 4321-2 ####[facility]CL[facility] [id number] [place] [address] [place] Creatinine [Mass/Vol] 0.90 mg/dL Normal 0.58-0.96 [facility] Comment on above: Order Comment: Adelaida casillas Type: BLOOD SPECIMENOrdering Facility: Address: [address] [place] [address] Performed By: #### 2 4321-2 ####[facility] LABCLIA [id number] [place] [address] [place] Creatinine and Glomerular filtration rate.predicted panel (S/P/Bld) 80 mL/min/1.73m??? Normal >=60 [facility] Comment on above: Order Comment: Adelaida casillas Type: BLOOD SPECIMENOrdering Facility: Address: [address] [place] [address] Result Comment: Heather mated Glomerular Filtration Rate [...] actual GFR. Performed By: #### 2 4321-2 ####[facility] LABCL[facility] [id number] [place] [address] [place] Glucose [Mass/Vol] 94 mg/dL Normal 74-99 [facility] Comment on above: Order Comment: Adelaida casillas Type: BLOOD SPECIMENOrdering Facility: Address: [address] [place] [address] Result Comment: The [place] Diabetes Association (ADA) provides guidance for cutoff [...] Standards of Medical Care in Diabetes 2016, [place] [employer] Association. Diabetes Care. 2016.39(Suppl 1). Performed By: #### 2 4321-2 ####[facility] LABCLIA [id number] [place] [address] [place] Potassium [Moles/Vol] 4.1 mmol/L Normal 3.7-5.1 [facility] Comment on above: Order Comment: Speci men Type: BLOOD SPECIMENOrdering Facility: Address: [address] [place] [address] Performed By: #### 2 4321-2 ####[facility] LABIA [id number] [place] [address] [place] Sodium [Moles/Vol] 137 mmol/L Normal 136-144 [facility] Comment on above: Order Comment: Speci men Type: BLOOD SPECIMENOrdering Facility: Address: [address] [place] [address] Performed By: #### 2 4321-2 ####[facility] LABIA [id number] [place] [address] [place] Urea nitrogen [Mass/Vol] 11 mg/dL Normal 7-21 [facility] Comment on above: Order Comment: Speci men Type: BLOOD SPECIMENOrdering Facility: Address: [address] [place] [address] Performed By: #### 2 4321-2 ####[facility] LABIA [id number] [address] [address] [place] OPERATIVE NOon 02-20-2025 OPERATIVE NO HNO ID: [id number] Author: ERIK PINEDA MD Service: Neurosurgery Author Type: Physician Type: Operative Report Filed: 02/21/2025 09:26 Note Text: OPERATIVE/PROCEDURE REPORT LOG ID: [id number] SURGERY/PROCEDURE DATE: 02/20/2025 INCISION/PROCEDURE START TIME: 1:29 PM INCISION CLOSE/PROCEDURE END TIME: 4:07 PM SURGEON(S)/PROCEDURAL IST(S) AND GLASSIE(S): Surgeons and Role: * Erik Pineda MD [...] the OR table. The neuronavigation system using CleanMyCRM was then registered and accuracy was confirmed using external anatomical landmarks and previous imaging in the PACS system. IV antibiotics, steroids, and Keppra were then administered. The patient was then prepped and draped in standard fashion for cranial surgery. A timeout was then performed in accordance with [facility] operative protocols. A right frontotemporal craniotomy [...] was then marked with a bone pencil. Aline holes were then placed in strategic places. Bony fragments were freed. The underlying dura was then stripped using a #3 [place]. Using a high speed air drill with [...] PM IMPLA (more content not included)... Normal [facility] Pathology biopsy report Alexis (Tiss)on 02-20-2025 AP DISCLAIMER Normal [facility] Comment on above: Order Comment: Speci men Type: TISSUE SPECIMENOrdering Facility: Address: [address] [place] [address] Result Comment: Leesa Hodge Test (LDT) Disclaimer: Performance characteristics of immunohistochemical, immunofluorescent, and chromogenic in-situ hybridization tests have been determined by the performing laboratory within [facility]'s [facility] Pathology and Laboratory Medicine Department ([facility], [facility], [facility], [facility], [facility], [facility], or [facility]) in a manner consistent with CLIA requirements. One or more of these tests may not have been cleared or approved by the FDA. RT-PLM is regulated under CLIA as qualified to perform high-complexity testing. These tests are used for clinical purposes. These should not be regarded as investigational or for research. Positive and negative controls stain appropriately. Performed By: #### 6 6121-5 ####[facility] LABIA [id number] [place] [id number] [place] CASE REPORT Normal [facility] Comment on above: Order Comment: Adelaida casillas Type: TISSUE SPECIMENOrdering Facility: Address: [address] [place] [address] Result Comment: Surg ica Pathology Report Case: [id number] Authorizing Provider: Erik Pineda MD Collected: 02/20/2025 03:13 PM Ordering Location: Admitting Received: 02/20/2025 04:45 PM Pathologist: Brody Olvera MD Specimen: Brain, Resection, right middle sphenoid wing tumor Performed By: #### 6 6121-5 ####[facility] LABCLIA [id number] [address] [address] [place] CLINICAL HISTORY [facility] Comment on above: Order Comment: Adelaida casillas Type: TISSUE SPECIMENOrdering Facility: Address: [address] [place] [address] Result Comment: Pre- op diagnosis: Intracranial meningioma (HCC) [D32.0] Preop testing [Z01.818] Performed By: #### 6 6121-5 ####[facility] LABCLIA [id number] [address] [place] [address] [place] DIAGNOSIS COMMENT Immunohistochemical staining of the tumor with antibodies to SSTR2a and DC was performed on block A1. The tumor shows positive staining with both antibodies, consistent with the diagnosis. A Ki-67 index of approximately 2-3% is focally noted. Normal [facility] Comment on above: Order Comment: Speci men Type: TISSUE SPECIMENOrdering Facility: Address: [address] [place] [address] Performed By: #### 6 6121-5 ####[facility] LABCLIA [id number] [address] [address] [facility] FINAL DIAGNOSIS Normal [facility] Comment on above: Order Comment: Speci men Type: TISSUE SPECIMENOrdering Facility: Address: [address] [place] [address] Result Comment: A. R ight middle sphenoid wing region, excision: - Morphologically consistent with meningothelial meningioma, WHO grade 1 at 1536 EDT Performed By: #### 6 6121-5 ####[facility] LABCLIA [id number] [address] [place] [address] [place] FINAL PERFORMING LAB Normal [facility] Comment on above: Order Comment: Speci men Type: TISSUE SPECIMENOrdering Facility: Address: [address] [place] [address] Result Comment: Diag nostic interpretation performed at: [facility], [address] [place] [address] CLIA# [id number] Cryogenic Transport Driver: Charan Ryan MD Performed By: #### 6 6121-5 ####[facility] LABCLIA [id number] [address] [place] [address] [place] GROSS DESCRIPTION Normal [facility] Comment on above: Order Comment: Speci men Type: TISSUE SPECIMENOrdering Facility: Address: [address] [place] [address] Result Comment: Angelito Iliana sharla, Resection Received in formalin, labeled as brain resection, right middle sphenoid wing tumor is a single bryant-brown irregular rubbery tissue measuring 2.1 x 1.3 x 0.5 cm. Sectioning reveals bryant-davidson homogenous cut surfaces. Totally submitted in cassettes A1-A2. CG February 21, 2025 10:13 AM Gross examination performed at [facility], [address] [place] [address] Performed By: #### 6 6121-5 ####[facility] LABCLIA [id number] [facility] [address] CNPHeather 02-17-2025 CNPN Telephone (NSCAMN) KOURTNEY NOVAK ([id number]) 1975 F Date Time Provider Department 02/17/25 MARIO ALBERTO PHILLIPS [facility] During your visit today, we recorded [...] follow up appts. Mario Alberto Phillips RN, Principal Embedded Software Engineer Allergies As of Date: 02/17/2025 (No Known Allergies) Date Reviewed: 02/14/2025 Reviewed by: Jace Lainez RT(R) - Fully Assessed Reason for Visit: PreOp Call [9514] Prescriptions as of 02/17/2025 - ondansetron orally [...] by MARIO ALBERTO PHILLIPS on 02/17/25 [facility] Kathy 02-15-2025 KIRTI Telephone (PALORA) KOURTNEY NOVAK ([id number]) 1975 F Date Time Provider Department 02/15/25 MEHLU MARTIN During your visit today, we recorded the following information about you: Mehul Martin APRN.CNP 02/15/2025 8:15 AM Signed Please call patient. Lab did not draw [place], A1C, or BMP. Please have her go to closest [facility] lab to have them drawn. She can go to [facility] cancer center in [place] if that is best for her thank [...] Known Allergies) Date Reviewed: 02/14/2025 Reviewed by: Bartlome, Jace, RT(R) - Fully Assessed Reason for Visit: [...] Status:Closed by BARBARA ROSENTHAL on 02/15/25 Normal [facility] CONFIRM BLOOD TYPEon 025 ABO A Normal [facility] Comment on above: Order Comment: Adelaida casillas Type: BLOOD SPECIMENOrdering Facility: Address: [address] [place] [address] Performed By: #### C ONABO ####[facility] BANKCLIA [id number] [place] [address] [place] Rh Nom (Bld) Negative Normal [facility] Comment on above: Order Comment: Adelaida casillas Type: BLOOD SPECIMENOrdering Facility: Address: [address] [place] [address] Performed By: #### C ONABO ####[facility] BLOOD BANKCLIA [id number] [place] [address] [place] HbA1c (Bld)on 02-15-2025 Average glucose Estimated from glycated hemoglobin (Bld) [Mass/Vol] 108 mg/dL Normal [facility] Comment on above: Order Comment: Adelaida casillas Type: BLOOD SPECIMENOrdering Facility: Address: [address] [place] [address] Result Comment: eAG: (Estimated average glucose) is a calculated value from HgbA1c and is bilingual sales representative of the average blood glucose level in the last 2-3 month period. Performed By: #### 5 5454-3 ####[facility] LABIA [id number] [place] [address] [place] HbA1c (Bld) [Mass fraction] 5.4 % Normal 4.3-5.6 [facility] Comment on above: Order Comment: Speci men Type: BLOOD SPECIMENOrdering Facility: Address: [address] [place] [address] Result Comment: [place] Diabetes Association guidelines indicate that patients with HgbA1c in the range 5.7-6.4% are at increased risk for development of diabetes, and intervention by lifestyle modification may be beneficial. HgbA1c greater or equal to 6.5% is considered diagnostic of diabetes. Performed By: #### 5 5454-3 ####[facility] [id number] [place] [address] [place] ALT SerPl-cCncon 02-14-2025 ALT [Catalytic activity/Vol] 27 U/L Normal 7-38 [facility] Comment on above: Order Comment: Adelaida casillas Type: BLOOD SPECIMENOrdering Facility: Address: [address] [place] [address] Performed By: #### 1 742-6, 1920-04, 1988-01 ####[facility] LABIA [id number] [place] [address] [place] AST SerPl-cCncon 02-14-2025 AST [Catalytic activity/Vol] 20 U/L Normal 13-35 [facility] Comment on above: Order Comment: Adelaida men Type: BLOOD SPECIMENOrdering Facility: Address: [address] [place] [address] Performed By: #### 1 742-6, 1920-04, 1988-01 ####[facility] LABIA [id number] [place] [id number] [address] [place] CBC panel Auto (Bld)on 02-14 Erythrocyte distribution width (RBC) [Ratio] 13.4 % Normal 11.5-15.0 [facility] Comment on above: Order Comment: Speci men Type: BLOOD SPECIMENOrdering Facility: Address: [address] [place] [address] Performed By: #### 5 8410-2, 4537-7 ####[facility] LABCLIA [id number] [address] Hematocrit (Bld) [Volume fraction] 39.2 % Normal 36.0-46.0 [facility] Comment on above: Order Comment: Speci men Type: BLOOD SPECIMENOrdering Facility: Address: [address] [place] [address] Performed By: #### 5 8410-2, 4537-7 ####[facility] LABCLIA [id number] [address] [place] Hemoglobin (Bld) [Mass/Vol] 12.6 g/dL Normal 11.5-15.5 [facility] Comment on above: Order Comment: Speci men Type: BLOOD SPECIMENOrdering Facility: Address: [address] [place] [address] Performed By: #### 5 8410-2, 4537-7 ####[facility] LABIA [id number] [place] [address] [place] MCH (RBC) [Entitic mass] 29.9 pg Normal 26.0-34.0 [facility] Comment on above: Order Comment: Speci men Type: BLOOD SPECIMENOrdering Facility: Address: [address] [place] [address] Performed By: #### 5 8410-2, 4537-7 ####[facility] LABCLIA [id number] [place] [address] [place] MCHC (RBC) [Mass/Vol] 32.1 g/dL Normal 30.5-36.0 [facility] Comment on above: Order Comment: Speci men Type: BLOOD SPECIMENOrdering Facility: Address: [address] [place] [address] Performed By: #### 5 8410-2, 4537-7 ####[facility] [facility] LABCLIA [id number] [facility] [place] [address] [place] MCV (RBC) [Entitic vol] 93.1 fL Normal 80.0-100.0 C [facility] Comment on above: Order Comment: Speci men Type: BLOOD SPECIMENOrdering Facility: Address: [address] [place] [address] Performed By: #### 5 8410-2, 4537-7 ####[facility] LABCLIA [id number] [place] [address] [place] Nucleated RBC (Bld) [#/Vol] 10*3/uL Normal <0.01 [facility] Comment on above: Order Comment: Speci men Type: BLOOD SPECIMENOrdering Facility: Address: [address] [place] [address] Performed By: #### 5 8410-2, 4537-7 ####[facility] LABIA [id number] [place] [address] [place] Platelet mean volume (Bld) [Entitic vol] 10.9 fL Normal 9.0-12.7 [facility] Comment on above: Order Comment: Speci men Type: BLOOD SPECIMENOrdering Facility: Address: [address] [place] [address] Performed By: #### 5 8410-2, 4537-7 ####[facility] LABCLIA [id number] [place] [address] [place] Platelets (Bld) [#/Vol] 329 10*3/uL Normal 150-400 [facility] Comment on above: Order Comment: Speci men Type: BLOOD SPECIMENOrdering Facility: Address: [address] [place] [address] Performed By: #### 5 8410-2, 4537-7 ####[facility] LABCLIA [id number] [address] [address] [place] RBC (Bld) [#/Vol] 4.21 10*6/uL Normal 3.90-5.20 [facility] Comment on above: Order Comment: Speci men Type: BLOOD SPECIMENOrdering Facility: Address: [address] [place] [address] Performed By: #### 5 8410-2, 4537-7 ####[facility] LABCLIA [id number] [place] [address] [place] WBC (Bld) [#/Vol] 7.27 10*3/uL Normal 3.70-11.00 [facility] Comment on above: Order Comment: Speci men Type: BLOOD SPECIMENOrdering Facility: Address: [address] [place] [address] Performed By: #### 5 8410-2, 4537-7 ####[facility] LABCLIA [id number] [place] [id number] [place] CRP SerPl-mCncon 02-14-2025 CRP [Mass/Vol] 0.6 mg/dL Normal <0.9 [facility] Comment on above: Order Comment: Speci men Type: BLOOD SPECIMENOrdering Facility: Address: [address] [place] [address] Performed By: #### 1 742-6, 8, 1988-01 ####[facility] LABCLIA [id number] [place] [id number] [place] TET15ds 02-14-2025 ECG01 Ventricular Rate : 7 7 BPM Atrial Rate : 77 BPM P-R Interval : 138 ms QRS Duration : 82 ms Q-T Interval : 386 ms QTC Calculation(Bazett) : 436 ms Calculated P [place] : 36 degrees Calculated R [place] : 47 degrees Calculated T [place] : 47 degrees NORMAL SINUS RHYTHM NORMAL ECG Confirmed by DI YORK M.D. ([id number]) on 02/14/2025 1:23:03 PM NAME : KOURTNEY NOVAK PID : [id number] : 1975 Gender : Female Race : [...] ERIK PINEDA Acquired by : am, Normal [facility] ESR Westergren method (Bld) [Velocity]on 02-14-2025 ESR (Bld) [Velocity] 2 mm/h Normal [facility]20 [facility] Comment on above: Order Comment: Speci men Type: BLOOD SPECIMENOrdering Facility: Address: [address] [place] [address] Performed By: #### 5 8410-2, 4537-7 ####[facility] LABCLIA [id number] [place] [address] [place] HISTORY PHYSICALon HISTORY PHYSICAL HNO ID: [id number] Author: MEHUL MARTIN APRN.GENERAL SURGERY PHYSICIAN ASSISTANT Service: ? Author Type: Nurse Practitioner Type: [...] [facility] rheumatology COPD (chronic obstructive pulmonary disease) ([facility]) Assessment: Stable with nebulizer treatments Denies any SOB Denies any Home oxygen use Lungs clear on exam SpO2 in office today 96% Monitored by PCP MAREK (obstructive sleep apnea) Assessment: Does not use CPAP Mixed hyperlipidemia Assessment: Compliant with Statin GERD (gastroesophageal reflux disease) Assessment: Controlled with dexilant Hypothyroidism Assessment: Controlled with levothyroxine Diabetes mellitus ([facility]) Assessment: Complaint with oral medications -A1C ordered today Instructions provided to patient on how long to hold diabetic medications prior to procedure Anxiety Assessment: Controlled with Lamictal Class 3 severe obesity due to excess calories with serious comorbidity and body mass index (BMI) of 40.0 to 44.9 in adult ([facility]) Assessment: Body mass index is 40.98 kg/m?. [...] of breath with the above physical activity. [id number] Score: Age: <65 Sex: female CHF history: No Hypertension history: No Stroke/TIA/thromboemb olism history: No Vascular disease history: No Diabetes history: Yes [id number] Score: 2 ARISCAT Score: Age: <=50 Preoperative [...] that was (more content not included)... 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 No acute abnormalities. Director Financial Services: GUANACO Transcribe Date/Time: Feb 14 2025 10:01A Dictated by : SEAN BLOCK MD This examination was interpreted and the report reviewed and electronically signed by: SEAN BLOCK MD on Feb 14 2025 10:22AM [facility] DIVISION OF RADIOLOGY * * *Final Report* * * DATE OF EXAM: Feb 14 2025 10:37AM [facility] 0295 - MRI BRAIN WO/W IVCON / [...] tissue mass extending into the of the spa manager/esthetician or parapharyngeal spaces. The soft tissue planes of the, retropharyngeal, and prevertebral spaces are maintained. The visualized parotid glands are normal in appearance. Nasopharynx/Oropharyn x: The nasopharynx and oropharynx are normal in appearance. DIVISION OF RADIOLOGY Provider, [facility] - 02/14/2025 * * *Final Report* * * DATE OF EXAM: Feb 14 2025 10:37AM [facility] 0295 - MRI BRAIN WO/W IVCON / [...] tissue mass extending into the of the spa manager/esthetician or parapharyngeal spaces. The soft tissue planes [...] exam in November 2015. No acute abnormalities. Director Financial Services: PSCB Transcribe Date/Time: Feb 14 2025 10:01A Dictated by : SEAN BLOCK MD This examination was interpreted and the report reviewed and electronically signed by: SEAN BLOCK MD on Feb 14 2025 10:22AM EST [facility] Radiology Study observation (narrative) [facility] MR Brain WO and W contrast I VOrdered By: [facility] Provider on 02-14-2025 [facility] MRI BRAIN WO/W IVCONon 02-14 MRI BRAIN WO/W IVCON * * *Final Report* * * DATE OF EXAM: Feb 14 2025 10:37AM [facility] 0295 - MRI BRAIN WO/W IVCON / [...] tissue mass extending into the of the spa manager/esthetician or parapharyngeal spaces. The soft tissue planes [...] exam in November 2015. No acute abnormalities. Director Financial Services: GUANACO Transcribe Date/Time: Feb 14 2025 10:01A Dictated by : SEAN BLOCK MD This examination was interpreted and the report reviewed and electronically signed by: SEAN BLOCK MD on Feb 14 2025 10:22AM EST [id number] N Normal [facility] STAPHYLOCOCCUS AUREUS AND MR SA SCREEN, PCR, NASALon 02-14-2025 S. aureus and MRSA panel RADHA+probe (Nose) Not detected Normal Not Detected [facility] Comment on above: Order Comment: Speci men Type: SWABOrdering Facility: Address: [address] [place] [address] Performed By: #### S APCR ####[facility] LABCLIA [id number] [place] [address] [place] TYPE AND SCREEN,30 DAYon ABO A Normal [facility] Comment on above: Order Comment: Speci men Type: BLOOD SPECIMENOrdering Facility: Address: [address] [place] [address] Performed By: #### T SCR30 ####[facility] BLOOD BANKCLIA [id number] [place] [address] [place] Rh Nom (Bld) Negative Normal [facility] Comment on above: Order Comment: Speci men Type: BLOOD SPECIMENOrdering Facility: Address: [address] [place] [address] Performed By: #### T SCR30 ####[facility] BLOOD BANKCLIA [id number] [place] [address] [place] US renal BIon 02-10-2025 US renal BI [facility] [address] Ultrasound Report Signed Patient: Kourtney Novak MR#: [id number] : 1975 Acct:[id number] Age/Sex: 49 / F ADM Date: 02/10/25 Loc: Room: Type: [facility] Attending Dr: Sammie Gonzalez MD Ordering [...] Gray M.D. 02/10/2025 4:44 PM Dictation Location: [place] [address] Tech: Vani Olivia Transcribed By: GRACIE 02/10/251643 Dictated By: George Gray DO 02/10/25 164 Signed By: 02/10/251643 Normal [facility] CNOVleyla 12-28-2024 CNOV Office Visit (ISSA ) KOURTNEY NOVAK ([id number]) 1975 F Date Time Provider Department 12/28/24 [...] air moveme (more content not included)... Normal [facility] X-ray reportOrdered By: Quirino Hoffmann on 12-27-2024 Study report [facility] [address] [place] [address] XRay Report Signed Patient: Kourtney Novak MR#: [id number] : 1975 Acct:[id number] Age/Sex: 49 / F ADM Date: 5 Loc: [facility] Room: Type: [facility] Attending Dr: Elyssa Gomes MD Copies [...] Lincoln Hoffmann M.D.12/27/2024 4:47 PM Dictation Location: [place] [address] Transcribed By: [facility] 12/27/241646 Dictated By: Lincoln Hoffmann MD 12/27/241642 Signed By: 12/27/241646 [facility] Work Phone: XR wrist RT min 3V*on 2024 XR wrist RT min 3V* [facility] [address] [place] [address] XRay Report Signed Patient: Kourtney Novak MR#: [id number] : 1975 Acct:[id number] Age/Sex: 49 / F ADM Date: 12/27/24 Loc: [facility] Room: Type: [facility] Attending Dr: Elyssa Gomes MD Copies [...] Lincoln Hoffmann M.D.12/27/2024 4:47 PM Dictation Location: [place] [address] Transcribed By: [facility] 12/27/24 4172 Dictated By: Lincoln Hoffmann MD 12/27/241642 Signed By: 12/27/241646 Normal [facility] Basophils Auto (Bld) [#/Vol] Ordered By: Sammie Gonzalez on 12-13-2024 Basophils (Bld) [#/Vol] Automated basoph il count 0.0-0.2 [facility] Basophils/100 WBC Auto (Bld) Ordered By: Sammie Gonzalez on 12-13-2024 Basophils/100 WBC (Bld) Automated basophil % . [facility] Complete Blood Count Auto Di ffon 12-13-2024 Basophils (Bld) [#/Vol] 0.1 10*3/uL Normal 0.0-0.2 [facility] Comment on above: Result Comment: PERF ORMED BY: [facility] [address] [place] [address] PATHOLOGIST MOTORCOACH OPERATOR PKAO RAMACHANDRAN M.D. Performed By: #### F E, MARIELLA, CBC ####[address] Basophils/100 WBC (Bld) 1.0 % Normal . T lizzy [facility] Comment on above: Performed By: #### F E, MARIELLA, CBC ####[address] Eosinophils (Bld) [#/Vol] 0.2 10*3/uL Normal 0.0-0.45 [facility] Comment on above: Performed By: #### F E, MARIELLA, CBC ####[address] Eosinophils/100 WBC (Bld) 2.7 % Normal . [facility] Comment on above: Performed By: #### F E, MARIELLA, CBC ####[address] Erythrocyte distribution width (RBC) [Ratio] 13.3 % Normal 11.9-15.3 [facility] Comment on above: Performed By: #### F E, MARIELLA, CBC ####[place] [id number] [facility] Hematocrit (Bld) [Volume fraction] 38.5 % Normal 34.0-46.4 [facility] Comment on above: Performed By: #### F E, MARIELLA, CBC ####[place] [id number] [facility] Hemoglobin (Bld) [Mass/Vol] 12.7 g/dL Normal 11.8-15.4 [facility] Comment on above: Performed By: #### F E, MARIELLA, CBC ####[address] Lymphocytes (Bld) [#/Vol] 2.6 10*3/uL Normal 1.00-4.8 [facility] Comment on above: Performed By: #### F E, MARIELLA, CBC ####[place] [id number] [facility] Lymphocytes/100 WBC (Bld) 30.8 % Normal . [facility] Comment on above: Performed By: #### F E, MARIELLA, CBC ####[address] MCH (RBC) [Entitic mass] 30.2 pg Normal 24.7-34.3 [facility] Comment on above: Performed By: #### F E, MARIELLA, CBC ####[address] MCV (RBC) [Entitic vol] 91.4 fL Normal 80-100 [facility] Comment on above: Performed By: #### F E, MARIELLA, CBC ####[address] Mean Corpuscular HGB Conc 33.1 g/dL Normal 32.0-35.0 [facility] Comment on above: Performed By: #### F E, MARIELLA, CBC ####[address] Monocytes (Bld) [#/Vol] 0.9 10*3/uL High 0.0-0.8 [facility] Comment on above: Performed By: #### F E, MARIELLA, CBC ####[address] Monocytes/100 WBC (Bld) 11.1 % Normal . [facility] Comment on above: Performed By: #### F E, MARIELLA, CBC ####[address] Neutrophils (Bld) [#/Vol] 4.6 10*3/uL Normal 1.8-7.7 [facility] Comment on above: Performed By: #### F E, MARIELLA, CBC ####[address] Neutrophils/100 WBC (Bld) 54.4 % Normal . [facility] Comment on above: Performed By: #### F E, MARIELLA, CBC ####[address] NRBC% 0.1 /100{WBC} Normal 0-0.5 [facility] Comment on above: Performed By: #### F E, MARIELLA, CBC ####[address] Platelet mean volume (Bld) [Entitic vol] 8.6 fL Normal 6.3-10.7 [facility] Comment on above: Performed By: #### F E, MARIELLA, CBC ####[address] Platelets (Bld) [#/Vol] 372 10*3/uL Normal 150-450 [facility] Comment on above: Performed By: #### F E, MARIELLA, CBC ####[address] RBC (Bld) [#/Vol] 4.22 10*6/uL Normal 3.60-5.00 [facility] Comment on above: Performed By: #### F E, MARIELLA, CBC ####[place] [id number] [facility] WBC (Bld) [#/Vol] 8.5 10*3/uL Normal 3.8-11.6 [facility] Comment on above: Performed By: #### F E, MARIELLA, CBC ####[place] [id number] [facility] Eosinophils Auto (Bld) [#/Vo l]Ordered By: Sammie Gonzalez on 12-13-2024 Eosinophils (Bld) [#/Vol] Automated eosinophil count 0.0-0.45 [facility] Eosinophils/100 WBC Auto (Bl d)Ordered By: Sammie Gonzalez on 12-13-2024 Eosinophils/100 WBC (Bld) Automated eosinophil % . [facility] Erythrocyte distribution wid th Auto (RBC) [Ratio]Ordered By: Sammie Gonzalez on 12-13-2024 Erythrocyte distribution width (RBC) [Ratio] Erythrocyte distribution width [Ratio] by Automated count 11.9-15.3 [facility] Ferritinon 12-13-2024 Ferritin [Mass/Vol] 56.2 ng/mL Normal 11.0-306.8 [facility] Comment on above: Result Comment: PERF ORMED BY: [facility] [address] [place] [id number] PATHOLOGIST MOTORCOACH OPERATOR PAKO RAMACHANDRAN M.D. Performed By: #### F E, MARIELLA, CBC ####[place] [address] [place] [id number] [facility] Ferritin [Mass/volume] in Se rum or PlasmaOrdered By: Sammie Gonzalez on 12-13-2024 Ferritin [Mass/Vol] Ferritin [Mass/volume] in Serum or Plasma 11.0-306.8 [facility] Hematocrit Auto (Bld) [Volum e fraction]Ordered By: Sammie Gonzalez on 12-13-2024 Hematocrit (Bld) [Volume fraction] Hematocrit [Volume Fraction] of Blood by Automated count 34.0-46.4 [facility] Hemoglobin [Mass/volume] in BloodOrdered By: Sammie Gonzalez on 12-13-2024 Hemoglobin (Bld) [Mass/Vol] Hemoglobin [Mass/volume] in Blood 11.8-15.4 [facility] Ironon 12-13-2024 Iron [Mass/Vol] 37 ug/dL Low 50-212 [facility] Comment on above: Performed By: #### F E, MARIELLA, CBC ####[place] [id number] [facility] Iron [Mass/volume] in Serum or PlasmaOrdered By: Sammie Gonzalez on 12-13-2024 Iron [Mass/Vol] Iron [Mass/volume] i n Serum or Plasma Low 50-212 [facility] Leukocytes [#/volume] correc jana for nucleated erythrocytes in Blood by Automated counOrdered By: Sammie Gonzalez on 12-13-2024 WBC corrected for nucl RBC Auto (Bld) [#/Vol] Leukocytes [#/volume] corrected for nucleated erythrocytes in Blood by Automated coun 3.8-11.6 [facility] Lymphocytes Auto (Bld) [#/Vo l]Ordered By: Sammie Gonzalez on 12-13-2024 Lymphocytes (Bld) [#/Vol] Lymphocytes [#/volume] in Blood by Automated count 1.00-4.8 [facility] Lymphocytes/100 WBC Auto (Bl d)Ordered By: Sammie Gonzalez on 12-13-2024 Lymphocytes/100 WBC (Bld) Lymphocytes/100 leukocytes in Blood by Automated count . [facility] MCH Auto (RBC) [Entitic mass ]Ordered By: Sammie Gonzalez on 12-13-2024 MCH (RBC) [Entitic mass] MCH [Entitic mass] by Automated count 24.7-34.3 [facility] MCHC Auto (RBC) [Mass/Vol]Or dered By: Sammie Gonzalez on 12-13-2024 MCHC (RBC) [Mass/Vol] MCHC [Mass/volume] by Automated count 32.0-35.0 [facility] MCV Auto (RBC) [Entitic vol] Ordered By: Sammie Gonzalez on 12-13-2024 MCV (RBC) [Entitic vol] MCV [Entitic vol ume] by Automated count 80-100 [facility] Monocytes Auto (Bld) [#/Vol] Ordered By: Sammie Gonzalez on 12-13-2024 Monocytes (Bld) [#/Vol] Automated blood monocyte count High 0.0-0.8 [facility] Monocytes/100 WBC Auto (Bld) Ordered By: Sammie Gonzalez on 12-13-2024 Monocytes/100 WBC (Bld) Automated monocyte % . [facility] Neutrophils Auto (Bld) [#/Vo l]Ordered By: Sammie Gonzalez on 12-13-2024 Neutrophils (Bld) [#/Vol] Neutrophils [#/volume] in Blood by Automated count 1.8-7.7 [facility] Neutrophils/100 WBC Auto (Bl d)Ordered By: Sammie Gonzalez on 12-13-2024 Neutrophils/100 WBC (Bld) Automated neutrophil % . [facility] Nucleated erythrocytes [Pres ence] in Blood by Automated countOrdered By: Sammie Gonzalez on 12-13-2024 Nucleated RBC Auto Ql (Bld) Nucleated erythrocytes [Presence] in Blood by Automated count 0-0.5 [facility] Platelet mean volume Auto (B ld) [Entitic vol]Ordered By: Sammie Gonzalez on 12-13-2024 Platelet mean volume (Bld) [Entitic vol] Platelet mean volume [Entitic volume] in Blood by Automated count 6.3-10.7 [facility] Platelets Auto (Bld) [#/Vol] Ordered By: Sammie Gonzalez on 12-13-2024 Platelets (Bld) [#/Vol] Platelets [#/vol ume] in Blood by Automated count 150-450 [facility] RBC Auto (Bld) [#/Vol]Ordere d By: Sammie Gonzalez on 12-13-2024 RBC (Bld) [#/Vol] Erythrocytes [#/volume] in Blood by Automated count 3.60-5.00 [facility] WBC Auto (Bld) [#/Vol]Ordere d By: Sammie Gonzalez on 12-13-2024 WBC (Bld) [#/Vol] Leukocytes [#/volume ] in Blood by Automated count 3.8-11.6 [facility] CNPNon 12-05-2024 CNPN Telephone [facility] KOURTNEY NOVAK ([id number]) 1975 F Date Time Provider Department 12/05/24 MARIO ALBERTO PHILLIPS [facility] During your visit today, we recorded [...] for questions/concerns/up dates. Mario Alberto Phillips RN, Principal Embedded Software Engineer Allergies As of Date: 12/05/2024 (No Known Allergies) Date Reviewed: 05/30/2024 Reviewed by: Saritha Keith MA - Fully Assessed Reason for Visit: Care Coordination [0056] Cmt: [facility] Follow up - Surgery Planning Prescriptions as [...] by MARIO ALBERTO PHILLIPS on 12/05/24 Normal [facility] X-ray reportOrdered By: Samuel Gray on 11-03-2024 Study report [facility] [address] [place] [id number] XRay Report Signed Patient: Kourtney Novak MR#: [id number] : 1975 Acct:[id number] Age/Sex: 48 / F ADM Date: 5 Loc: [facility] Room: Type: [facility] Attending Dr: Mk Broderick MD Copies [...] Gray DO 11/03/241617 Signed By: 11/03/24 161 [facility] XR shoulder LT min 2V*on XR shoulder LT min 2V* [facility] [address] [place] [address] XRay Report Signed Patient: Kourtney Novak MR#: [id number] : 1975 Acct:[id number] Age/Sex: 48 / F ADM Date: 11/03/24 Loc: [facility] Room: Type: [facility] Attending Dr: Mk Broderick MD Copies [...] By: George Gray DO 11/03/241617 Signed By: 11/03/241618 Normal [facility] Kathy 10-10-2024 KIRTI Telephone (RHEUAV) KOURTNEY NOVAK ([id number]) 1975 F Date Time Provider Department 10/10/24 ZEINAB WOOD During your visit today, we recorded the following information about you: Susy Escamilla LPN 10/10/2024 4:11 PM Addendum Received fax from [facility]. States that diagnosis code M19.9 ( inflammatory arthritis ) does not pass medical necessity for the [address] regarding CBC test. They needs a different order to be placed with another diagnosis code. Please fax to Jimbo Whitten at [phone]. Notice sent to scanning . Please route to [facility] nurse for follow up Susy Escamilla LPN 10/10/2024 5:01 PM Signed Faxed new order with updated diagnosis code . sent to [phone]. 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 [3602] Cmt: Lab order problem Primary Visit Diagnosis:Encounter for medication monitoring [Z51.81] Order(s):ASPARTATE AMINOTRANSFERASE/SGOT [SQAST] Order #: [id number] STANDING ALANINE AMINOTRANSFERASE / SGPT [SQALT] Order #: [id number] STANDING COMPLETE BLOOD COUNT [SQCBC] Order #: [id number] STANDING SEDIMENTATION RATE, WESTERGREN [SQWSR] Order #: [id number] STANDING C-REACTIVE PROTEIN [SQCRP] Order #: [id number] STANDING Prescriptions as of 10/10/2024 - DULoxetine [...] Status:Closed by SUSY ESCAMILLA on 10/10/24 [facility] Alanine Aminotransferaseon 0 09-20-2024 ALT [Catalytic activity/Vol] 21 U/L Normal [facility] Comment on above: Order Comment: PIPER FITZGERALDKW Performed By: #### E SR, CBC, CRP, AST, ALT #### [address] Alanine aminotransferase [En zymatic activity/volume] in Serum or PlasmaOrdered By: Zeinab Wood on 09-20-2024 ALT [Catalytic activity/Vol] Alanine aminotransferase [Enzymatic activity/volume] in Serum or Plasma [facility] Aspartate Amino Transferaseo n 09-20-2024 AST [Catalytic activity/Vol] 14 U/L Normal 13-39 [facility] Comment on above: Order Comment: PIPER YANCEY Performed By: #### E SR, CBC, CRP, AST, ALT #### [facility] [address] [place] [address] Aspartate aminotransferase [ Enzymatic activity/volume] in Serum or PlasmaOrdered By: Zeinab Wood on 09-20-2024 AST [Catalytic activity/Vol] Aspartate aminotransferase [Enzymatic activity/volume] in Serum or Plasma 13-39 [facility] [facility] Auto (Bld) [#/Vol] Ordered By: Zeinab Wood on 09-20-2024 Basophils (Bld) [#/Vol] Automated basoph il count 0.0-0.2 [facility] Basophils/100 WBC Auto (Bld) Ordered By: Zeinab Wood on 09-20-2024 Basophils/100 WBC (Bld) Automated basophil % . [facility] C reactive protein [Mass/vol ume] in Serum or PlasmaOrdered By: Zeinab Wood on 09-20-2024 CRP [Mass/Vol] C reactive protein [Mass/volume] in Serum or Plasma High 0.0-0.5 [facility] C-Reactive Proteinon 025 C-Reactive Protein 0.7 mg/dL High 0.0-0.5 [facility] Comment on above: Order Comment: PIPER YANCEY Result Comment: PERF ORMED BY: [address] [place] [address] PATHOLOGIST MOTORCOACH OPERATOR PAKO RAMACHANDRAN M.D. Performed By: #### E SR, CBC, CRP, AST, ALT #### [facility] [address] [place] [address] CNPNon 09-20-2024 CNPN Telephone (Madmagz) MARINOKOURTNEY ([id number]) 1975 F Date Time Provider Department 09/20/24 ZEINAB WOOD During your visit today, we recorded the following information about you: Susy Escamilla LPN 09/20/2024 5:47 PM Signed Lab results received from [facility] . Copy sent to scan, copy sent to provider folder for review. . Allergies As of Date: 09/20/2024 (No Known Allergies) Date Reviewed: 05/30/2024 Reviewed by: Saritha Keith MA - Fully Assessed Reason for Visit: Results [95] Cmt: Lab results from [facility] Prescriptions as of 09/21/2024 - [...] Status:Closed by SUSY ESCAMILLA on 09/21/24 Normal [facility] Complete Blood Count Auto Di ffon 09-20-2024 Basophils (Bld) [#/Vol] 0.0 10*3/uL Normal 0.0-0.2 [facility] Comment on above: Order Comment: [email or web address] Performed By: #### E SR, CBC, CRP, AST, ALT #### [address] Basophils/100 WBC (Bld) 0.6 % Normal . T lizzy [facility] Comment on above: Order Comment: [email or web address] Performed By: #### E SR, CBC, CRP, AST, ALT #### [address] Eosinophils (Bld) [#/Vol] 0.1 10*3/uL Normal 0.0-0.45 [facility] Comment on above: Order Comment: [email or web address] Performed By: #### E SR, CBC, CRP, AST, ALT #### [address] Eosinophils/100 WBC (Bld) 1.2 % Normal . [facility] Comment on above: Order Comment: [email or web address] Performed By: #### E SR, CBC, CRP, AST, ALT #### [address] Erythrocyte distribution width (RBC) [Ratio] 13.0 % Normal 11.9-15.3 [facility] Comment on above: Order Comment: [email or web address] Performed By: #### E SR, CBC, CRP, AST, ALT #### [address] Hematocrit (Bld) [Volume fraction] 35.8 % Normal 34.0-46.4 [facility] Comment on above: Order Comment: [email or web address] [email or web address] Performed By: #### E SR, CBC, CRP, AST, ALT #### [address] Hemoglobin (Bld) [Mass/Vol] 12.0 g/dL Normal 11.8-15.4 [facility] Comment on above: Order Comment: [email or web address] Performed By: #### E SR, CBC, CRP, AST, ALT #### [address] Lymphocytes (Bld) [#/Vol] 2.1 10*3/uL Normal 1.00-4.8 [facility] Comment on above: Order Comment: [email or web address] [email or web address] Performed By: #### E SR, CBC, CRP, AST, ALT #### [address] Lymphocytes/100 WBC (Bld) 28.4 % Normal . [facility] Comment on above: Order Comment: [email or web address] Performed By: #### E SR, CBC, CRP, AST, ALT #### [address] MCH (RBC) [Entitic mass] 30.4 pg Normal 24.7-34.3 [facility] Comment on above: Order Comment: [email or web address] Performed By: #### E SR, CBC, CRP, AST, ALT #### [address] MCV (RBC) [Entitic vol] 90.8 fL Normal 80-100 [facility] Comment on above: Order Comment: [email or web address] Performed By: #### E SR, CBC, CRP, AST, ALT #### [address] Mean Corpuscular HGB Conc 33.5 g/dL Normal 32.0-35.0 [facility] Comment on above: Order Comment: [email or web address] [email or web address] Performed By: #### E SR, CBC, CRP, AST, ALT #### [address] Monocytes (Bld) [#/Vol] 1.0 10*3/uL High 0.0-0.8 [facility] Comment on above: Order Comment: [email or web address] [email or web address] Performed By: #### E SR, CBC, CRP, AST, ALT #### [address] Monocytes/100 WBC (Bld) 13.1 % Normal . [facility] Comment on above: Order Comment: [email or web address] Performed By: #### E SR, CBC, CRP, AST, ALT #### [address] Neutrophils (Bld) [#/Vol] 4.3 10*3/uL Normal 1.8-7.7 [facility] Comment on above: Order Comment: [email or web address] [email or web address] Performed By: #### E SR, CBC, CRP, AST, ALT #### [address] Neutrophils/100 WBC (Bld) 56.7 % Normal . [facility] Comment on above: Order Comment: [email or web address] Performed By: #### E SR, CBC, CRP, AST, ALT #### [address] NRBC% 0.0 /100{WBC} Normal 0-0.5 [facility] Comment on above: Order Comment: [email or web address] Performed By: #### E SR, CBC, CRP, AST, ALT #### [facility] [address] Platelet mean volume (Bld) [Entitic vol] 8.5 fL Normal 6.3-10.7 [facility] Comment on above: Order Comment: [email or web address] [email or web address] Performed By: #### E SR, CBC, CRP, AST, ALT #### [facility] [address] Platelets (Bld) [#/Vol] 353 10*3/uL Normal 150-450 [facility] Comment on above: Order Comment: [email or web address] [email or web address] Performed By: #### E SR, CBC, CRP, AST, ALT #### [facility] [address] RBC (Bld) [#/Vol] 3.94 10*6/uL Normal 3.60-5.00 [facility] Comment on above: Order Comment: [email or web address] [email or web address] Performed By: #### E SR, CBC, CRP, AST, ALT #### [facility] [address] WBC (Bld) [#/Vol] 7.5 10*3/uL Normal 3.8-11.6 [facility] Comment on above: Order Comment: [email or web address] [email or web address] Performed By: #### E SR, CBC, CRP, AST, ALT #### [facility] [address] Eosinophils Auto (Bld) [#/Vo l]Ordered By: Zeinab Wood on 09-20-2024 Eosinophils (Bld) [#/Vol] Automated eosinophil count 0.0-0.45 [facility] Eosinophils/100 WBC Auto (Bl d)Ordered By: Zeinab Wood on 09-20-2024 Eosinophils/100 WBC (Bld) Automated eosinophil % . [facility] Erythrocyte Sedimentation Ra gabriel 09-20-2024 ESR (Bld) [Velocity] 9 mm/h Normal 0-19 [facility] Comment on above: Order Comment: [email or web address] Result Comment: PERF ORMED BY: [facility] [address] [place] [address] PATHOLOGIST MOTORCOACH OPERATOR PAKO RAMACHANDRAN M.D. Performed By: #### E SR, CBC, CRP, AST, ALT ####[facility] [id number] [place] [address] [facility] Erythrocyte distribution wid th Auto (RBC) [Ratio]Ordered By: Zeinab Wood on 09-20-2024 Erythrocyte distribution width (RBC) [Ratio] Erythrocyte distribution width [Ratio] by Automated count 11.9-15.3 [facility] Erythrocyte sedimentation ra te by Photometric methodOrdered By: Zeinab Wood on 09-20-2024 ESR Photometric method (Bld) [Velocity] Erythrocyte sedimentation rate by Photometric method 0-19 [facility] Hematocrit Auto (Bld) [Volum e fraction]Ordered By: Zeinab Wood on 09-20-2024 Hematocrit (Bld) [Volume fraction] Hematocrit [Volume Fraction] of Blood by Automated count 34.0-46.4 [facility] Hemoglobin [Mass/volume] in BloodOrdered By: Zeinab Wood on 09-20-2024 Hemoglobin (Bld) [Mass/Vol] Hemoglobin [Mass/volume] in Blood 11.8-15.4 [facility] Leukocytes [#/volume] correc jana for nucleated erythrocytes in Blood by Automated counOrdered By: Zeinab Wood on 09-20-2024 WBC corrected for nucl RBC Auto (Bld) [#/Vol] Leukocytes [#/volume] corrected for nucleated erythrocytes in Blood by Automated coun 3.8-11.6 [facility] Lymphocytes Auto (Bld) [#/Vo l]Ordered By: Zeinab Wood on 09-20-2024 Lymphocytes (Bld) [#/Vol] Lymphocytes [#/volume] in Blood by Automated count 1.00-4.8 [facility] Lymphocytes/100 WBC Auto (Bl d)Ordered By: Zeinab Wood on 09-20-2024 Lymphocytes/100 WBC (Bld) Lymphocytes/100 leukocytes in Blood by Automated count . [facility] MCH Auto (RBC) [Entitic mass ]Ordered By: Zeinab Wood on 09-20-2024 MCH (RBC) [Entitic mass] MCH [Entitic mass] by Automated count 24.7-34.3 [facility] MCHC Auto (RBC) [Mass/Vol]Or dered By: Zeinab Wood on 09-20-2024 MCHC (RBC) [Mass/Vol] MCHC [Mass/volume] by Automated count 32.0-35.0 [facility] MCV Auto (RBC) [Entitic vol] Ordered By: Zeinab Wood on 09-20-2024 MCV (RBC) [Entitic vol] MCV [Entitic vol ume] by Automated count 80-100 [facility] Monocytes Auto (Bld) [#/Vol] Ordered By: Zeinab Wood on 09-20-2024 Monocytes (Bld) [#/Vol] Automated blood monocyte count High 0.0-0.8 [facility] Monocytes/100 WBC Auto (Bld) Ordered By: Zeinab Wood on 09-20-2024 Monocytes/100 WBC (Bld) Automated monocyte % . [facility] Neutrophils Auto (Bld) [#/Vo l]Ordered By: Zeinab Wood on 09-20-2024 Neutrophils (Bld) [#/Vol] Neutrophils [#/volume] in Blood by Automated count 1.8-7.7 [facility] Neutrophils/100 WBC Auto (Bl d)Ordered By: Zeinab Wood on 09-20-2024 Neutrophils/100 WBC (Bld) Automated neutrophil % . [facility] Nucleated erythrocytes [Pres ence] in Blood by Automated countOrdered By: Zeinab Wood on 09-20-2024 Nucleated RBC Auto Ql (Bld) Nucleated erythrocytes [Presence] in Blood by Automated count 0-0.5 [facility] Platelet mean volume Auto (B ld) [Entitic vol]Ordered By: Zeinab Wood on 09-20-2024 Platelet mean volume (Bld) [Entitic vol] Platelet mean volume [Entitic volume] in Blood by Automated count 6.3-10.7 [facility] Platelets Auto (Bld) [#/Vol] Ordered By: Zeinab Wood on 09-20-2024 Platelets (Bld) [#/Vol] Platelets [#/vol ume] in Blood by Automated count 150-450 [facility] RBC Auto (Bld) [#/Vol]Ordere d By: Zeinab Wood on 09-20-2024 RBC (Bld) [#/Vol] Erythrocytes [#/volume] in Blood by Automated count 3.60-5.00 [facility] WBC Auto (Bld) [#/Vol]Ordere d By: Zeinab Wood on 09-20-2024 WBC (Bld) [#/Vol] Leukocytes [#/volume ] in Blood by Automated count 3.8-11.6 [facility] MM screening mammo BI w/CADo n 09-16-2024 MM screening mammo BI w/CAD [facility] [place] [address] Mammography Report Signed Patient: Kourtney Novak MR#: [id number] : 1975 Acct:[id number] Age/Sex: 48 / F ADM Date: 09/16/24 Loc: [place] Room: Type: [facility] Attending Dr: Referral Self Copies to: [...] Lincoln Hoffmann M.D.09/16/2024 2:40 PM Dictation Location: [facility] Transcribed By: GRACIE 09/16/24 1440 Dictated By: Lincoln Hoffmann MD 09/16/24 1437 Signed By: 09/16/24 1440 Normal [facility] Mammography reportOrdered By : Lincoln Hoffmann on 09-16-2024 Diagnostic imaging study [facility] [place] [address] [place] [address] Mammography Report Signed Patient: Kourtney Novak MR#: [id number] : 1975 Acct:[id number] Age/Sex: 48 / F ADM Date: 5 Loc: [place] Room: Type: [facility] Attending Dr: Referral Self Copies to: [...] Lincoln Hoffmann M.D.09/16/2024 2:40 PM Dictation Location: [facility] Transcribed By: [facility] 09/16/24 1440 Dictated By: Lincoln Hoffmann MD 09/16/24 143 Signed By: 09/16/24 1440 [facility] Work Phone: Thyrotropin [Units/volume] i n Serum or PlasmaOrdered By: Sammie Gonzalez on 06-22-2024 TSH Qn 2.24 m[IU]/L Normal 0.45-5.33 [facility] Comment on above: Order Comment: PIPER STEWARTW Result Comment: PERF ORMED BY: [address] [place] [address] PATHOLOGIST MOTORCOACH OPERATOR MONIK SILVESTRE M.D. Performed By: #### T SH3, T4T, T3F ####[place] [id number] [facility] Thyroxine (T4) [Mass/volume] in Serum or PlasmaOrdered By: Sammie Gonzalez on 06-22-2024 T4 [Mass/Vol] 11.23 ug/dL Normal 5.39-11.82 [facility] Comment on above: Order Comment: PIPER FoleyKW Performed By: #### T SH3, T4T, T3F ####[address] [address] [facility] Triiodothyronine (T3) Freeon 06-22-2024 Triiodothyronine (T3) Free 2.96 pg/mL Normal 2.50-3.90 [facility] Comment on above: Order Comment: PIPER FoleyKW Result Comment: PERF ORMED BY: [facility] [address] [place] [address] PATHOLOGIST MOTORCOACH OPERATOR MONIK SILVESTRE M.D. Performed By: #### T SH3, T4T, T3F ####[place] [id number] [place] [address] [facility] Triiodothyronine (T3) Free [ Mass/volume] in Serum or PlasmaOrdered By: Sammie Gonzalez on 06-22-2024 Free T3 [Mass/Vol] 2.96 pg/mL 2.50-3.90 [facility] CNOVon 05-30-2024 CNOV Office Visit (ISSA ) KOURTNEY NOVAK ([id number]) 1975 F Date Time Provider Department 05/30/24 [...] are p (more content not included)... Normal [facility] Alanine aminotransferase [En zymatic activity/volume] in Serum or PlasmaOrdered By: Sammie Gonzalez on 05-12-2024 ALT [Catalytic activity/Vol] 17 U/L 7-52 [facility] Albumin [Mass/volume] in Ser um or Plasma by Bromocresol green (BCG) dye binding methoOrdered By: Sammie Gonzalez on 05-12-2024 Albumin BCG dye [Mass/Vol] 4.1 g/dL 3.5-5.7 [facility] Alkaline phosphatase [Enzyma tic activity/volume] in Serum or PlasmaOrdered By: Sammie Gonzalez on 05-12-2024 ALP [Catalytic activity/Vol] 42 U/L 34-104 [facility] Anisocytosis LM Ql (Bld)Orde red By: Sammie Gonzalez on 05-12-2024 Anisocytosis Ql (Bld) Slight [facility] Aspartate aminotransferase [ Enzymatic activity/volume] in Serum or PlasmaOrdered By: Sammie Gonzalez on 05-12-2024 AST [Catalytic activity/Vol] 11 U/L Low 13-39 [facility] Band form neutrophils/100 WB C Manual cnt (Bld)Ordered By: Sammie Hoy on 05-12-2024 Band form neutrophils/100 WBC (Bld) 1 % 0-5 [facility] Basophils Auto (Bld) [#/Vol] Ordered By: Sammie Hoy on 05-12-2024 Basophils (Bld) [#/Vol] N/A [facility] Basophils/100 WBC Auto (Bld) Ordered By: Sammie Hoy on 05-12-2024 Basophils/100 WBC (Bld) N/A F [facility] Basophils/100 WBC Manual cnt (Bld)Ordered By: Sammie Hopiedad on 05-12-2024 Basophils/100 WBC (Bld) 1 % 0-2 F [facility] Bilirubin.total [Mass/volume ] in Serum or PlasmaOrdered By: Sammie Gonzalez on 05-12-2024 Bilirubin [Mass/Vol] 0.4 mg/dL 0.3-1.0 [facility] Calcium [Mass/volume] in Ser um or PlasmaOrdered By: Sammie Gonzalez on 05-12-2024 Calcium [Mass/Vol] 9.4 mg/dL 8.6-10.3 [facility] Carbon dioxide, total [Moles /volume] in Serum or PlasmaOrdered By: Sammie Gonzalez on 05-12-2024 CO2 [Moles/Vol] 27.0 mmol/L 21.0-31.0 [facility] Chloride [Moles/volume] in S micki or PlasmaOrdered By: Sammie Gonzalez on 05-12-2024 Chloride [Moles/Vol] 101 mmol/L 98-107 [facility] Cholesterol [Mass/volume] in Serum or PlasmaOrdered By: Sammie Gonzalez on 05-12-2024 Cholesterol [Mass/Vol] 191 mg/dL 140-200 [facility] Comment on above: Chol less than 200 m g/dl low riskChol 201-239 mg/dl borderline riskChol 240 mg/dl and greater high risk Cholesterol in LDL Calc [Mas s/Vol]Ordered By: Sammie Gonzalez on 05-12-2024 Cholesterol in LDL [Mass/Vol] 76 mg/dL 0-100 [facility] Comment on above: LDL ATP III CLASSIFI CATIONLDL less than 100 mg/dL OptimalLDL 100-129 mg/dL Near or above optimalLDL 130-159 mg/dL Borderline highLDL 160-189 mg/dL HighLDL greater than 189 mg/dL Very high Cholesterol in VLDL Calc [Ma ss/Vol]Ordered By: Sammie Gonzalez on 05-12-2024 Cholesterol in VLDL [Mass/Vol] 29 mg/dL [facility] Creatinine [Mass/volume] in Serum or PlasmaOrdered By: Sammie Gonzalez on 05-12-2024 Creatinine [Mass/Vol] 1.05 mg/dL 0.60-1.20 [facility] Eosinophils Auto (Bld) [#/Vo l]Ordered By: Sammie Gonzalez on 05-12-2024 Eosinophils (Bld) [#/Vol] N/A [facility] Eosinophils/100 WBC Auto (Bl d)Ordered By: Sammie Gonzalez on 05-12-2024 Eosinophils/100 WBC (Bld) N/A [facility] Eosinophils/100 WBC Manual c nt (Bld)Ordered By: Sammie Gonzalez on 05-12-2024 Eosinophils/100 WBC (Bld) 2 % 1-3 [facility] Erythrocyte distribution wid th Auto (RBC) [Ratio]Ordered By: Sammie Gonzalez on 05-12-2024 Erythrocyte distribution width (RBC) [Ratio] 13.9 % 11.9-15.3 [facility] Folate [Mass/volume] in Seru m or PlasmaOrdered By: Sammie Gonzalez on 05-12-2024 Folate [Mass/Vol] 7.8 ng/mL >5.9 [facility] Comment on above: Folate reference ran ge: >5.9 ng/mlThe WHO technical consultation on folate and vitamin [id number] has determined that folate concentrations lessthan 4 ng/ml are considered deficient. Globulin Calc (S) [Mass/Vol] Ordered By: Sammie Gonzalez on 05-12-2024 Globulin (S) [Mass/Vol] 2.0 g/dL F [facility] Glucose [Mass/volume] in Ser um or PlasmaOrdered By: Sammie Gonzalez on 05-12-2024 Glucose [Mass/Vol] 111 mg/dL High 70-100 [facility] Comment on above: ADA recommended refe [...] from glycated hemoglobin (Bld) [Mass/Vol] 114 mg/dL [facility] Hematocrit Auto (Bld) [Volum e fraction]Ordered By: Sammie Gonzalez on 05-12-2024 Hematocrit (Bld) [Volume fraction] 39.1 % 34.0-46.4 [facility] Hemoglobin A1c percentageOrd ered By: Sammie Gonzalez on 05-12-2024 HbA1c (Bld) [Mass fraction] 5.6 % 4.3-5.6 [facility] Comment on above: Increased risk for d iabetes: 5.7 - 6.4diabetes: >6.4glycemic control for adults with diabetes: <7.0 Hemoglobin [Mass/volume] in BloodOrdered By: Sammie Gonzalez on 05-12-2024 Hemoglobin (Bld) [Mass/Vol] 12.9 g/dL 11.8-15.4 [facility] Iron [Mass/volume] in Serum or PlasmaOrdered By: Sammie Gonzalez on 05-12-2024 Iron [Mass/Vol] 80 ug/dL 50-212 [facility] Leukocytes [#/volume] correc jana for nucleated erythrocytes in Blood by Automated counOrdered By: Sammie Gonzalez on 05-12-2024 WBC corrected for nucl RBC Auto (Bld) [#/Vol] 11.8 10*3/uL High 3.8-11.6 [facility] Lymphocytes Auto (Bld) [#/Vo l]Ordered By: Sammie Gonzalez on 05-12-2024 Lymphocytes (Bld) [#/Vol] N/A [facility] Lymphocytes/100 WBC Auto (Bl d)Ordered By: Sammie Gonzalez on 05-12-2024 Lymphocytes/100 WBC (Bld) N/A [facility] Lymphocytes/100 WBC Manual c nt (Bld)Ordered By: Sammie Gonzalez on 05-12-2024 Lymphocytes/100 WBC (Bld) 28 % 18-42 [facility] MCH Auto (RBC) [Entitic mass ]Ordered By: Sammie Gonzalez on 05-12-2024 MCH (RBC) [Entitic mass] 29.9 pg 24.7-34.3 [facility] MCHC Auto (RBC) [Mass/Vol]Or dered By: Sammie Gonzalez on 05-12-2024 MCHC (RBC) [Mass/Vol] 33.0 g/dL 32.0-35.0 [facility] MCV Auto (RBC) [Entitic vol] Ordered By: Sammie Gonzalez on 05-12-2024 MCV (RBC) [Entitic vol] 90.8 fL 80-100 F [facility] Metamyelocytes/100 WBC Manua l cnt (Bld)Ordered By: Sammie Gonzalez on 05-12-2024 Metamyelocytes/100 WBC (Bld) 2 % High 0-0 [facility] Microcytes LM Ql (Bld)Ordere d By: Sammie Gonzalez on 05-12-2024 Microcytes Ql (Bld) Slight [facility] Monocytes Auto (Bld) [#/Vol] Ordered By: Sammie Gonzalez on 05-12-2024 Monocytes (Bld) [#/Vol] N/A F [facility] Monocytes/100 WBC Auto (Bld) Ordered By: Sammie Hoy on 05-12-2024 Monocytes/100 WBC (Bld) N/A F [facility] Monocytes/100 WBC Manual cnt (Bld)Ordered By: Sammie Janice on 05-12-2024 Monocytes/100 WBC (Bld) 12 % High 2-11 [facility] Neutrophils Auto (Bld) [#/Vo l]Ordered By: Sammie Gonzalez on 05-12-2024 Neutrophils (Bld) [#/Vol] N/A [facility] Neutrophils/100 WBC Auto (Bl d)Ordered By: Sammie Gonzalez on 05-12-2024 Neutrophils/100 WBC (Bld) N/A [facility] No Panel InformationOrdered By: Sammie Gonzalez on 05-12-2024 Estimated GFR (CKD-EPI) > 60.0 mL/Min [facility] Creatinine Clearance (Chem N/A [facility] Nucleated erythrocytes [Pres ence] in Blood by Automated countOrdered By: Sammie Gonzalez on 05-12-2024 Nucleated RBC Auto Ql (Bld) N/A [facility] Platelet adequacy [Presence] in Blood by Light microscopyOrdered By: Sammie Gonzalez on 05-12-2024 Platelets LM Ql (Bld) Normal Normal [facility] Platelet mean volume Auto (B ld) [Entitic vol]Ordered By: Sammie Gonzalez on 05-12-2024 Platelet mean volume (Bld) [Entitic vol] 8.1 fL 6.3-10.7 [facility] Platelet morphology finding [Identifier] in BloodOrdered By: Sammie Gonzalez on 05-12-2024 Platelet morphology finding Nom (Bld) Normal Normal [facility] Platelets Auto (Bld) [#/Vol] Ordered By: Sammie Gonzalez on 05-12-2024 Platelets (Bld) [#/Vol] 392 10*3/uL 150-450 [facility] Potassium [Moles/volume] in Serum or PlasmaOrdered By: Sammie Gonzalez on 05-12-2024 Potassium [Moles/Vol] 4.1 mmol/L 3.5-5.1 [facility] Protein [Mass/volume] in Ser um or PlasmaOrdered By: Sammie Gonzalez on 05-12-2024 Protein [Mass/Vol] 6.1 g/dL Low 6.4-8.9 [facility] RBC Auto (Bld) [#/Vol]Ordere d By: Sammie Gonzalez on 05-12-2024 RBC (Bld) [#/Vol] 4.30 10*6/uL 3.60-5.00 [facility] RBC morphologyOrdered By: Do erik Gonzalez on 05-12-2024 RBC morphology finding Nom (Bld) N/A [facility] Segmented neutrophils/100 WB C Manual cnt (Bld)Ordered By: Sammie Gonzalez on 05-12-2024 Segmented neutrophils/100 WBC (Bld) 54 % 50-70 [facility] Serum or plasma albumin/glob ulin mass ratioOrdered By: Sammie Gonzalez on 05-12-2024 Albumin/Globulin [Mass ratio] 2.1 {ratio} [facility] Serum or plasma anion gap de terminationOrdered By: Sammie Gonzalez on 05-12-2024 Anion gap [Moles/Vol] 12.1 mmol/L 6.0-[facility] Serum or plasma high density lipoprotein (HDL) cholesterol measurementOrdered By: Sammie Gonzalez on 05-12-2024 Cholesterol in HDL [Mass/Vol] 86 mg/dL [facility] Comment on above: HDL CHOL ATP-III CLA SSIFICATION Cardiovascular RiskHDL > or equal to 60 mg/dL LOWHDL < 40 mg/dL HIGH Serum or plasma insulin kiara urement (units/volume)Ordered By: Sammie Gonzalez on 05-12-2024 Insulin Qn 38.1 u[iU]/mL High 2.6-24.9 [facility] Comment on above: Performed at: [place] [id number] Director: Maxim Daniel PhD, Phone: [phone] Serum or plasma total choles terol/high density lipoprotein (HDL) cholesterol mass ratOrdered By: Sammie Gonzalez on 05-12-2024 Cholesterol.total/Tali sterol in HDL [Mass ratio] 2.2 {ratio} <5.0 [facility] Sodium [Moles/volume] in Ser um or PlasmaOrdered By: Sammie Gonzalez on 05-12-2024 Sodium [Moles/Vol] 136 mmol/L 136-145 [facility] Thyrotropin [Units/volume] i n Serum or PlasmaOrdered By: Sammie Gonzalez on 05-12-2024 TSH Qn 6.32 m[IU]/L High 0.45-5.33 [facility] Thyroxine (T4) [Mass/volume] in Serum or PlasmaOrdered By: Sammie Gonzalez on 05-12-2024 T4 [Mass/Vol] 11.59 ug/dL 5.39-11.82 [facility] Triglyceride [Mass/volume] i n Serum or PlasmaOrdered By: Sammie Gonzalez on 05-12-2024 Triglyceride [Mass/Vol] 146 mg/dL 0-149 [facility] Comment on above: TRIG ATP III CLASSIF ICATIONTRIG less than 150 mg/dL NormalTRIG 150-199 mg/dL Borderline highTRIG 200-500 mg/dL High TRIG greater than 500 mg/dL Very highStandard traceable to the Center for Disease Conrtrol and Prevention (CDC) test method. Triiodothyronine (T3) Free [ Mass/volume] in Serum or PlasmaOrdered By: Sammie Gonzalez on 05-12-2024 Free T3 [Mass/Vol] 3.61 pg/mL 2.50-3.90 [facility] Urea nitrogen [Mass/volume] in Serum or PlasmaOrdered By: Sammie Gonzalez on 05-12-2024 Urea nitrogen [Mass/Vol] 20 mg/dL 7-25 [facility] Vitamin B12 ser/plasOrdered By: Sammie Gonzalez on 05-12-2024 Cobalamin (Vitamin B12) [Mass/Vol] 306 pg/mL 180-914 [facility] Vitamin D+Metabolites [Mass/ volume] in Serum or PlasmaOrdered By: Sammie Gonzalez on 05-12-2024 Vitamin D+Metabolites [Mass/Vol] 39.9 ng/mL 30-100 [facility] Comment on above: VITAMIN D STATUS 25( [place])VITAMIN D RANGE (ng/mL) Deficient <20 Insufficient 20 to <30Sufficient 30 to 100Reference: Nain MF,Anum NC, Brynn AAPRICIO, et al. Evaluation,treatment, and prevention of vitamin D deficiency; an Endocrine Society clinical practice guideline. JCEM. 2010; 96(7):1911-30. WBC Auto (Bld) [#/Vol]Ordere d By: Sammie Gonzalez on 05-12-2024 WBC (Bld) [#/Vol] 11.8 10*3/uL High 3.8-11.6 [facility] CT BRAIN WO IVCONon 01-29-[address] BRAIN WO IVCON * * *Final Report* * * DATE OF EXAM: Jan 29 2024 1:02PM [facility] 0504 - CT BRAIN WO IVCON / [...] tissue component identified in the orbit. Director Financial Services: PSC[employer] Transcribe Date/Time: Jan 31 2024 3:33P Dictated by : NATIVIDAD PRIEST MD This examination was interpreted and the report reviewed and electronically signed by: NATIVIDAD PRIEST MD on Jan 31 2024 3:37PM EST [id number] N Normal [facility] MRI SKULL BASE WO/W IVCONon 01-29-2024 MRI SKULL BASE WO/W IVCON * * *Final Report* * * DATE OF EXAM: Jan 29 2024 1:56PM [facility] 0319 - MRI SKULL BASE WO/W IVCON [...] tissue mass extending into the of the spa manager/esthetician or parapharyngeal spaces. The soft tissue planes of the, retropharyngeal, and prevertebral spaces are maintained. The visualized parotid glands are normal in appearance. Nasopharynx/Oropharyn x: The nasopharynx and oropharynx are normal in appearance. 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 Director Financial Services: PSCIliana Transcribe Date/Time: Jan 31 2024 5:10P Dictated by : WESTLEY IYER MD This examination was interpreted and the report reviewed and electronically signed by: WESTLEY IYER MD on Jan 31 2024 5:28PM EST [id number] Normal [facility] Alanine aminotransferase [En zymatic activity/volume] in Serum or PlasmaOrdered By: Zeinab Wood on 01-08-2024 ALT [Catalytic activity/Vol] 22 U/L 7-52 [facility] Aspartate aminotransferase [ Enzymatic activity/volume] in Serum or PlasmaOrdered By: Zeinab Wood on 01-08-2024 AST [Catalytic activity/Vol] 16 U/L 13-39 [facility] Basophils Auto (Bld) [#/Vol] Ordered By: Zeinab Wood on 01-08-2024 Basophils (Bld) [#/Vol] 0.1 10*3/uL 0.0-0.2 [facility] Basophils/100 WBC Auto (Bld) Ordered By: Zeinab Wood on 01-08-2024 Basophils/100 WBC (Bld) 1.1 % . [facility] Creatinine [Mass/volume] in Serum or PlasmaOrdered By: Zeinab Wood on 01-08-2024 Creatinine [Mass/Vol] 1.00 mg/dL 0.60-1.20 [facility] Eosinophils Auto (Bld) [#/Vo l]Ordered By: Zeinab Wood on 01-08-2024 Eosinophils (Bld) [#/Vol] 0.1 10*3/uL 0.0-0.45 [facility] Eosinophils/100 WBC Auto (Bl d)Ordered By: Zeinab Wood on 01-08-2024 Eosinophils/100 WBC (Bld) 1.8 % . [facility] Erythrocyte distribution wid th Auto (RBC) [Ratio]Ordered By: Zeinab Wood on 01-08-2024 Erythrocyte distribution width (RBC) [Ratio] 13.1 % 11.9-15.3 [facility] Hematocrit Auto (Bld) [Volum e fraction]Ordered By: Zeinab Wood on 01-08-2024 Hematocrit (Bld) [Volume fraction] 39.2 % 34.0-46.4 [facility] Hemoglobin [Mass/volume] in BloodOrdered By: Zeinab Wood on 01-08-2024 Hemoglobin (Bld) [Mass/Vol] 13.1 g/dL 11.8-15.4 [facility] Leukocytes [#/volume] correc jana for nucleated erythrocytes in Blood by Automated counOrdered By: Zeinab Wood on 01-08-2024 WBC corrected for nucl RBC Auto (Bld) [#/Vol] 6.8 10*3/uL 3.8-11.6 [facility] Lymphocytes Auto (Bld) [#/Vo l]Ordered By: Zeinab Wood on 01-08-2024 Lymphocytes (Bld) [#/Vol] 2.0 10*3/uL 1.00-4.8 [facility] Lymphocytes/100 WBC Auto (Bl d)Ordered By: Zeinab Wood on 01-08-2024 Lymphocytes/100 WBC (Bld) 29.3 % . [facility] MCH Auto (RBC) [Entitic mass ]Ordered By: Zeinab Wood on 01-08-2024 MCH (RBC) [Entitic mass] 30.6 pg 24.7-34.3 [facility] MCHC Auto (RBC) [Mass/Vol]Or dered By: Zeinab Wood on 01-08-2024 MCHC (RBC) [Mass/Vol] 33.4 g/dL 32.0-35.0 [facility] MCV Auto (RBC) [Entitic vol] Ordered By: Zeinab Wood on 01-08-2024 MCV (RBC) [Entitic vol] 91.5 fL 80-100 [facility] Monocytes Auto (Bld) [#/Vol] Ordered By: Zeinab Wood on 01-08-2024 Monocytes (Bld) [#/Vol] 0.8 10*3/uL 0.0-0.8 [facility] Monocytes/100 WBC Auto (Bld) Ordered By: Zeinab Wood on 01-08-2024 Monocytes/100 WBC (Bld) 11.3 % . [facility] Neutrophils Auto (Bld) [#/Vo l]Ordered By: Zeinab Wood on 01-08-2024 Neutrophils (Bld) [#/Vol] 3.9 10*3/uL 1.8-7.7 [facility] Neutrophils/100 WBC Auto (Bl d)Ordered By: Zeinab Wood on 01-08-2024 Neutrophils/100 WBC (Bld) 56.5 % . [facility] No Panel InformationOrdered By: Zeinab Wood on 01-08-2024 Estimated GFR (CKD-EPI) > 60.0 mL/Min [facility] Creatinine Clearance (Chem N/A [facility] Nucleated erythrocytes [Pres ence] in Blood by Automated countOrdered By: Zeinab Wood on 01-08-2024 Nucleated RBC Auto Ql (Bld) 0.1 /100{WBC} 0-0.5 [facility] Platelet mean volume Auto (B ld) [Entitic vol]Ordered By: Zeinab Wood on 01-08-2024 Platelet mean volume (Bld) [Entitic vol] 8.4 fL 6.3-10.7 [facility] Platelets Auto (Bld) [#/Vol] Ordered By: Zeinab Wood on 01-08-2024 Platelets (Bld) [#/Vol] 284 10*3/uL 150-450 [facility] RBC Auto (Bld) [#/Vol]Ordere d By: Zeinab Wood on 01-08-2024 RBC (Bld) [#/Vol] 4.29 10*6/uL 3.60-5.00 [facility] WBC Auto (Bld) [#/Vol]Ordere d By: Zeinab Wood on 01-08-2024 WBC (Bld) [#/Vol] 6.8 10*3/uL 3.8-11.6 [facility] Basophils Auto (Bld) [#/Vol] Ordered By: Sammie Gonzalez on 11-11-2023 Basophils (Bld) [#/Vol] 0.1 10*3/uL 0.0-0.2 [facility] Basophils/100 WBC Auto (Bld) Ordered By: Sammie Gonzalez on 11-11-2023 Basophils/100 WBC (Bld) 1.0 % . [facility] Eosinophils Auto (Bld) [#/Vo l]Ordered By: Sammie Gonzalez on 11-11-2023 Eosinophils (Bld) [#/Vol] 0.1 10*3/uL 0.0-0.45 [facility] Eosinophils/100 WBC Auto (Bl d)Ordered By: Sammie Gonzalez on 11-11-2023 Eosinophils/100 WBC (Bld) 1.3 % . [facility] Erythrocyte distribution wid th Auto (RBC) [Ratio]Ordered By: Sammie Gonzalez on 11-11-2023 Erythrocyte distribution width (RBC) [Ratio] 13.3 % 11.9-15.3 [facility] Ferritin [Mass/volume] in Se rum or PlasmaOrdered By: Sammie Gonzalez on 11-11-2023 Ferritin [Mass/Vol] 88.4 ng/mL 11.0-306.8 [facility] Hematocrit Auto (Bld) [Volum e fraction]Ordered By: Sammie Gonzalez on 11-11-2023 Hematocrit (Bld) [Volume fraction] 39.9 % 34.0-46.4 [facility] Hemoglobin [Mass/volume] in BloodOrdered By: Sammie Gonzalez on 11-11-2023 Hemoglobin (Bld) [Mass/Vol] 13.0 g/dL 11.8-15.4 [facility] Iron [Mass/volume] in Serum or PlasmaOrdered By: Sammie Gonzalez on 11-11-2023 Iron [Mass/Vol] 93 ug/dL 50-212 [facility] Leukocytes [#/volume] correc jana for nucleated erythrocytes in Blood by Automated counOrdered By: Sammie Gonzalez on 11-11-2023 WBC corrected for nucl RBC Auto (Bld) [#/Vol] 8.7 10*3/uL 3.8-11.6 [facility] Lymphocytes Auto (Bld) [#/Vo l]Ordered By: Sammie Gonzalez on 11-11-2023 Lymphocytes (Bld) [#/Vol] 3.7 10*3/uL 1.00-4.8 [facility] Lymphocytes/100 WBC Auto (Bl d)Ordered By: Sammie Gonzalez on 11-11-2023 Lymphocytes/100 WBC (Bld) 42.6 % . [facility] MCH Auto (RBC) [Entitic mass ]Ordered By: Sammie Gonzalez on 11-11-2023 MCH (RBC) [Entitic mass] 30.0 pg 24.7-34.3 [facility] MCHC Auto (RBC) [Mass/Vol]Or dered By: Sammie Gonzalez on 11-11-2023 MCHC (RBC) [Mass/Vol] 32.6 g/dL 32.0-35.0 [facility] MCV Auto (RBC) [Entitic vol] Ordered By: Sammie Gonzalez on 11-11-2023 MCV (RBC) [Entitic vol] 92.1 fL 80-100 [facility] Monocytes Auto (Bld) [#/Vol] Ordered By: Sammie Gonzalez on 11-11-2023 Monocytes (Bld) [#/Vol] 0.9 10*3/uL 0.0-0.8 [facility] Monocytes/100 WBC Auto (Bld) Ordered By: Sammie Gonzalez on 11-11-2023 Monocytes/100 WBC (Bld) 9.8 % . [facility] Neutrophils Auto (Bld) [#/Vo l]Ordered By: Sammie Gonzalez on 11-11-2023 Neutrophils (Bld) [#/Vol] 4.0 10*3/uL 1.8-7.7 [facility] Neutrophils/100 WBC Auto (Bl d)Ordered By: Sammie Gonzalez on 11-11-2023 Neutrophils/100 WBC (Bld) 45.3 % . [facility] Nucleated erythrocytes [Pres ence] in Blood by Automated countOrdered By: Sammie Gonzalez on 11-11-2023 Nucleated RBC Auto Ql (Bld) 0.1 /100{WBC} 0-0.5 [facility] Platelet mean volume Auto (B ld) [Entitic vol]Ordered By: Sammie Gonzalez on 11-11-2023 Platelet mean volume (Bld) [Entitic vol] 9.0 fL 6.3-10.7 [facility] Platelets Auto (Bld) [#/Vol] Ordered By: Sammie Gonzalez on 11-11-2023 Platelets (Bld) [#/Vol] 363 10*3/uL 150-450 [facility] RBC Auto (Bld) [#/Vol]Ordere d By: Sammie Gonzalez on 11-11-2023 RBC (Bld) [#/Vol] 4.34 10*6/uL 3.60-5.00 [facility] WBC Auto (Bld) [#/Vol]Ordere d By: Sammie Gonzalez on 11-11-2023 WBC (Bld) [#/Vol] 8.7 10*3/uL 3.8-11.6 [facility] Alanine aminotransferase [En zymatic activity/volume] in Serum or PlasmaOrdered By: Sammie Gonzalez on 05-22-2023 ALT [Catalytic activity/Vol] 14 U/L 7-52 [facility] Albumin [Mass/volume] in Ser um or Plasma by Bromocresol green (BCG) dye binding methoOrdered By: Sammie Gonzalez on 05-22-2023 Albumin BCG dye [Mass/Vol] 4.1 g/dL 3.5-5.7 [facility] Alkaline phosphatase [Enzyma tic activity/volume] in Serum or PlasmaOrdered By: Sammie Gonzalez on 05-22-2023 ALP [Catalytic activity/Vol] 45 U/L 34-104 [facility] Aspartate aminotransferase [ Enzymatic activity/volume] in Serum or PlasmaOrdered By: Sammie Gonzalez on 05-22-2023 AST [Catalytic activity/Vol] 12 U/L 13-39 [facility] Basophils Auto (Bld) [#/Vol] Ordered By: Sammie Gonzalez on 05-22-2023 Basophils (Bld) [#/Vol] 0.1 10*3/uL 0.0-0.2 [facility] Basophils/100 WBC Auto (Bld) Ordered By: Sammie Gonzalez on 05-22-2023 Basophils/100 WBC (Bld) 0.9 % . [facility] Bilirubin.total [Mass/volume ] in Serum or PlasmaOrdered By: Sammie Gonzalez on 05-22-2023 Bilirubin [Mass/Vol] 0.3 mg/dL 0.3-1.0 [facility] Calcium [Mass/volume] in Ser um or PlasmaOrdered By: Sammie Gonzalez on 05-22-2023 Calcium [Mass/Vol] 9.5 mg/dL 8.6-10.3 [facility] Carbon dioxide, total [Moles /volume] in Serum or PlasmaOrdered By: Sammie Gonzalez on 05-22-2023 CO2 [Moles/Vol] 25.4 mmol/L 21.0-31.0 [facility] Chloride [Moles/volume] in S micki or PlasmaOrdered By: Sammie Gonzalez on 05-22-2023 Chloride [Moles/Vol] 106 mmol/L 98-107 [facility] Cholesterol [Mass/volume] in Serum or PlasmaOrdered By: Sammie Gonzalez on 05-22-2023 Cholesterol [Mass/Vol] 182 mg/dL 140-200 [facility] Comment on above: Chol less than 200 m g/dl low riskChol 201-239 mg/dl borderline riskChol 240 mg/dl and greater high risk Cholesterol in LDL Calc [Mas s/Vol]Ordered By: Sammie Gonzalez on 05-22-2023 Cholesterol in LDL [Mass/Vol] 58 mg/dL 0-100 [facility] Comment on above: LDL ATP III CLASSIFI CATIONLDL less than 100 mg/dL OptimalLDL 100-129 mg/dL Near or above optimalLDL 130-159 mg/dL Borderline highLDL 160-189 mg/dL HighLDL greater than 189 mg/dL Very high Cholesterol in VLDL Calc [Ma ss/Vol]Ordered By: Sammie Gonzalez on 05-22-2023 Cholesterol in VLDL [Mass/Vol] 44 mg/dL [facility] Creatinine [Mass/volume] in Serum or PlasmaOrdered By: Sammie Gonzalez on 05-22-2023 Creatinine [Mass/Vol] 0.89 mg/dL 0.60-1.20 [facility] Eosinophils Auto (Bld) [#/Vo l]Ordered By: Sammie Gonzalez on 05-22-2023 Eosinophils (Bld) [#/Vol] 0.1 10*3/uL 0.0-0.45 [facility] Eosinophils/100 WBC Auto (Bl d)Ordered By: Sammie Gonzalez on 05-22-2023 Eosinophils/100 WBC (Bld) 1.3 % . [facility] Erythrocyte distribution wid th Auto (RBC) [Ratio]Ordered By: Sammie Gonzalez on 05-22-2023 Erythrocyte distribution width (RBC) [Ratio] 20.4 % 11.9-15.3 [facility] Ferritin [Mass/volume] in Se rum or PlasmaOrdered By: Sammie Gonzalez on 05-22-2023 Ferritin [Mass/Vol] 147.2 ng/mL 11.0-306.8 [facility] Globulin Calc (S) [Mass/Vol] Ordered By: Sammie Gonzalez on 05-22-2023 Globulin (S) [Mass/Vol] 1.8 g/dL [facility] Glucose [Mass/volume] in Ser um or PlasmaOrdered By: Sammie Gonzalez on 05-22-2023 Glucose [Mass/Vol] 88 mg/dL 70-100 [facility] Comment on above: ADA recommended refe [...] from glycated hemoglobin (Bld) [Mass/Vol] 105 mg/dL [facility] Hematocrit Auto (Bld) [Volum e fraction]Ordered By: Sammie Gonzalez on 05-22-2023 Hematocrit (Bld) [Volume fraction] 37.0 % 34.0-46.4 [facility] Hemoglobin A1c percentageOrd ered By: Sammie Gonzalez on 05-22-2023 HbA1c (Bld) [Mass fraction] 5.3 % 4.3-5.6 [facility] Comment on above: Increased risk for d iabetes: 5.7 - 6.4diabetes: >6.4glycemic control for adults with diabetes: <7.0 Hemoglobin [Mass/volume] in BloodOrdered By: Sammie Gonzalez on 05-22-2023 Hemoglobin (Bld) [Mass/Vol] 11.9 g/dL 11.8-15.4 [facility] Iron [Mass/volume] in Serum or PlasmaOrdered By: Sammie Gonzalez on 05-22-2023 Iron [Mass/Vol] 57 ug/dL 50-212 [facility] Leukocytes [#/volume] correc jana for nucleated erythrocytes in Blood by Automated counOrdered By: Sammie Gonzalez on 05-22-2023 WBC corrected for nucl RBC Auto (Bld) [#/Vol] 9.6 10*3/uL 3.8-11.6 [facility] Lymphocytes Auto (Bld) [#/Vo l]Ordered By: Sammie Gonzalez on 05-22-2023 Lymphocytes (Bld) [#/Vol] 2.2 10*3/uL 1.00-4.8 [facility] Lymphocytes/100 WBC Auto (Bl d)Ordered By: Sammie Gonzalez on 05-22-2023 Lymphocytes/100 WBC (Bld) 22.5 % . [facility] MCH Auto (RBC) [Entitic mass ]Ordered By: Sammie Gonzalez on 05-22-2023 MCH (RBC) [Entitic mass] 27.7 pg 24.7-34.3 [facility] MCHC Auto (RBC) [Mass/Vol]Or dered By: Sammie Gonzalez on 05-22-2023 MCHC (RBC) [Mass/Vol] 32.2 g/dL 32.0-35.0 [facility] MCV Auto (RBC) [Entitic vol] Ordered By: Sammie Gonzalez on 05-22-2023 MCV (RBC) [Entitic vol] 85.8 fL 80-100 [facility] Monocytes Auto (Bld) [#/Vol] Ordered By: Sammie Gonzalez on 05-22-2023 Monocytes (Bld) [#/Vol] 1.0 10*3/uL 0.0-0.8 [facility] Monocytes/100 WBC Auto (Bld) Ordered By: Sammie Gonzalez on 05-22-2023 Monocytes/100 WBC (Bld) 9.9 % . [facility] Neutrophils Auto (Bld) [#/Vo l]Ordered By: Sammie Gonzalez on 05-22-2023 Neutrophils (Bld) [#/Vol] 6.3 10*3/uL 1.8-7.7 [facility] Neutrophils/100 WBC Auto (Bl d)Ordered By: Sammie Gonzalez on 05-22-2023 Neutrophils/100 WBC (Bld) 65.4 % . [facility] No Panel InformationOrdered By: Sammie Gonzalez on 05-22-2023 Estimated GFR (CKD-EPI) > 60.0 mL/Min [facility] Creatinine Clearance (Chem N/A [facility] Nucleated erythrocytes [Pres ence] in Blood by Automated countOrdered By: Sammie Gonzalez on 05-22-2023 Nucleated RBC Auto Ql (Bld) 0.1 /100{WBC} 0-0.5 [facility] Platelet mean volume Auto (B ld) [Entitic vol]Ordered By: Sammie Gonzalez on 05-22-2023 Platelet mean volume (Bld) [Entitic vol] 9.0 fL 6.3-10.7 [facility] Platelets Auto (Bld) [#/Vol] Ordered By: Sammie Gonzalez on 05-22-2023 Platelets (Bld) [#/Vol] 339 10*3/uL 150-450 [facility] Potassium [Moles/volume] in Serum or PlasmaOrdered By: Sammie Gonzalez on 05-22-2023 Potassium [Moles/Vol] 3.9 mmol/L 3.5-5.1 [facility] Protein [Mass/volume] in Ser um or PlasmaOrdered By: Sammie Gonzalez on 05-22-2023 Protein [Mass/Vol] 5.9 g/dL 6.4-8.9 [facility] RBC Auto (Bld) [#/Vol]Ordere d By: Sammie Gonzalez on 05-22-2023 RBC (Bld) [#/Vol] 4.31 10*6/uL 3.60-5.00 [facility] Serum or plasma albumin/glob ulin mass ratioOrdered By: Sammie Gonzalez on 05-22-2023 Albumin/Globulin [Mass ratio] 2.3 {ratio} [facility] Serum or plasma anion gap de terminationOrdered By: Sammie Gonzalez on 05-22-2023 Anion gap [Moles/Vol] 10.5 mmol/L 6.0-15.0 [facility] Serum or plasma high density lipoprotein (HDL) cholesterol measurementOrdered By: Sammie Gonzalez on 05-22-2023 Cholesterol in HDL [Mass/Vol] 79 mg/dL 23-92 [facility] Comment on above: HDL CHOL ATP-III CLA SSIFICATION Cardiovascular RiskHDL > or equal to 60 mg/dL LOWHDL < 40 mg/dL HIGH Serum or plasma total choles terol/high density lipoprotein (HDL) cholesterol mass ratOrdered By: Sammie Gonzalez on 05-22-2023 Cholesterol.total/Tali sterol in HDL [Mass ratio] 2.3 {ratio} <5.0 [facility] Sodium [Moles/volume] in Ser um or PlasmaOrdered By: Sammie Gonzalez on 05-22-2023 Sodium [Moles/Vol] 138 mmol/L 136-145 [facility] Thyrotropin [Units/volume] i n Serum or PlasmaOrdered By: Sammie Gonzalez on 05-22-2023 TSH Qn 3.27 m[IU]/L 0.45-5.33 [facility] Thyroxine (T4) free [Mass/vo lume] in Serum or PlasmaOrdered By: Sammie Gonzalez on 05-22-2023 Free T4 [Mass/Vol] 0.91 ng/dL 0.61-1.12 [facility] Triglyceride [Mass/volume] i n Serum or PlasmaOrdered By: Sammie Gonzalez on 05-22-2023 Triglyceride [Mass/Vol] 223 mg/dL 0-149 [facility] Comment on above: TRIG ATP III CLASSIF ICATIONTRIG less than 150 mg/dL NormalTRIG 150-199 mg/dL Borderline highTRIG 200-500 mg/dL High TRIG greater than 500 mg/dL Very highStandard traceable to the Center for Disease Conrtrol and Prevention (CDC) test method. Urea nitrogen [Mass/volume] in Serum or PlasmaOrdered By: Sammie Gonzalez on 05-22-2023 Urea nitrogen [Mass/Vol] 10 mg/dL 7-25 [facility] WBC Auto (Bld) [#/Vol]Ordere d By: Sammie Gonzalez on 05-22-2023 WBC (Bld) [#/Vol] 9.6 10*3/uL 3.8-11.6 [facility] Basophils Auto (Bld) [#/Vol] Ordered By: Sammie Gonzalez on 04-15-2023 Basophils (Bld) [#/Vol] 0.1 10*3/uL 0.0-0.2 [facility] Basophils/100 WBC Auto (Bld) Ordered By: Sammie Gonzalez on 04-15-2023 Basophils/100 WBC (Bld) 0.8 % . [facility] Eosinophils Auto (Bld) [#/Vo l]Ordered By: Sammie Gonzalez on 04-15-2023 Eosinophils (Bld) [#/Vol] 0.1 10*3/uL 0.0-0.45 [facility] Eosinophils/100 WBC Auto (Bl d)Ordered By: Sammie Gonzalez on 04-15-2023 Eosinophils/100 WBC (Bld) 1.3 % . [facility] Erythrocyte distribution wid th Auto (RBC) [Ratio]Ordered By: Sammie Gonzalez on 04-15-2023 Erythrocyte distribution width (RBC) [Ratio] 15.8 % 11.9-15.3 [facility] Ferritin [Mass/volume] in Se rum or PlasmaOrdered By: Sammie Gonzalez on 04-15-2023 Ferritin [Mass/Vol] 5.1 ng/mL 11.0-306.8 [facility] Hematocrit Auto (Bld) [Volum e fraction]Ordered By: Sammie Gonzalez on 04-15-2023 Hematocrit (Bld) [Volume fraction] 35.0 % 34.0-46.4 [facility] Hemoglobin [Mass/volume] in BloodOrdered By: Sammie Gonzalez on 04-15-2023 Hemoglobin (Bld) [Mass/Vol] 11.2 g/dL 11.8-15.4 [facility] Iron [Mass/volume] in Serum or PlasmaOrdered By: Sammie Gonzalez on 04-15-2023 Iron [Mass/Vol] 18 ug/dL 50-212 [facility] Leukocytes [#/volume] correc jana for nucleated erythrocytes in Blood by Automated counOrdered By: Sammie Gonzalez on 04-15-2023 WBC corrected for nucl RBC Auto (Bld) [#/Vol] 9.6 10*3/uL 3.8-11.6 [facility] Lymphocytes Auto (Bld) [#/Vo l]Ordered By: Sammie Gonzalez on 04-15-2023 Lymphocytes (Bld) [#/Vol] 2.2 10*3/uL 1.00-4.8 [facility] Lymphocytes/100 WBC Auto (Bl d)Ordered By: Sammie Gonzalez on 04-15-2023 Lymphocytes/100 WBC (Bld) 23.3 % . [facility] MCH Auto (RBC) [Entitic mass ]Ordered By: Sammie Gonzalez on 04-15-2023 MCH (RBC) [Entitic mass] 26.0 pg 24.7-34.3 [facility] MCHC Auto (RBC) [Mass/Vol]Or dered By: Sammie Gonzalez on 04-15-2023 MCHC (RBC) [Mass/Vol] 32.0 g/dL 32.0-35.0 [facility] MCV Auto (RBC) [Entitic vol] Ordered By: Sammie Gonzalez on 04-15-2023 MCV (RBC) [Entitic vol] 81.2 fL 80-100 [facility] Monocytes Auto (Bld) [#/Vol] Ordered By: Sammie Gonzalez on 04-15-2023 Monocytes (Bld) [#/Vol] 0.7 10*3/uL 0.0-0.8 [facility] Monocytes/100 WBC Auto (Bld) Ordered By: Sammie Gonzalez on 04-15-2023 Monocytes/100 WBC (Bld) 7.7 % . [facility] Neutrophils Auto (Bld) [#/Vo l]Ordered By: Sammie Gonzalez on 04-15-2023 Neutrophils (Bld) [#/Vol] 6.4 10*3/uL 1.8-7.7 [facility] Neutrophils/100 WBC Auto (Bl d)Ordered By: Sammie Gonazlez on 04-15-2023 Neutrophils/100 WBC (Bld) 66.9 % . [facility] Nucleated erythrocytes [Pres ence] in Blood by Automated countOrdered By: Sammie Gonzalez on 04-15-2023 Nucleated RBC Auto Ql (Bld) 0.4 /100{WBC} 0-0.5 [facility] Platelet mean volume Auto (B ld) [Entitic vol]Ordered By: Sammie Gonzalez on 04-15-2023 Platelet mean volume (Bld) [Entitic vol] 9.1 fL 6.3-10.7 [facility] Platelets Auto (Bld) [#/Vol] Ordered By: Sammie Gonzalez on 04-15-2023 Platelets (Bld) [#/Vol] 427 10*3/uL 150-450 [facility] RBC Auto (Bld) [#/Vol]Ordere d By: Sammie Gonzalez on 04-15-2023 RBC (Bld) [#/Vol] 4.31 10*6/uL 3.60-5.00 [facility] WBC Auto (Bld) [#/Vol]Ordere d By: Sammie Gonzalez on 04-15-2023 WBC (Bld) [#/Vol] 9.6 10*3/uL 3.8-11.6 [facility] BNPon 10-11-2022 Natriuretic peptide B (Bld) [Mass/Vol] 173.0 pg/mL Normal <=450.0 [facility] Comment on above: Performed By: #### L ACT #### [facility] [facility] [address] [address] [address] Ko Durbin CBC W MANUAL DIFFon 10-11-19 23 ATYPICAL LYMPH # 0.18 103/ul Normal [facility] Comment on above: Performed By: #### C BCMAN #### [facility] [address] [place], [place] [address] Dr. Ko Durbin ATYPICAL LYMPH % 2 % Normal [facility] Comment on above: Performed By: #### C BCMAN #### [facility] [address] [place] [address] Dr. Ko Durbin BAND # 0.0 103/ul Normal 0.0-0.3 [facility] Comment on above: Performed By: #### C BCMAN #### [facility] [address] [place] [address] Dr. Ko Durbin BAND % 0 % Normal 0-5 [facility] Comment on above: Performed By: #### C BCMAN #### [facility] [address] [place] [address] Dr. Ko Durbin BASOM # 0.00 103/ul Normal 0.00-0.10 [facility] Comment on above: Performed By: #### C BCCHRISTIANO #### [facility] [address] [place] [address] Dr. Ko Durbin BASOM % 0.0 % Critically low 0.2-2.0 [facility] Comment on above: Performed By: #### C BCCHRISTIANO #### [facility] [address] [place] [address] Dr. Ko Durbin BLAST # Normal [facility] Comment on above: Performed By: #### C MARSHA #### [facility] [address] [place] [address] Dr. Ko Durbin BLAST % Normal [facility] Comment on above: Performed By: #### C MARSHA #### [facility] [address] [place] [address] Dr. Ko Durbin CORRECTED WBC Normal 4.0-11.0 [facility] Comment on above: Performed By: #### C BCCHRISTIANO #### [facility] [address] [place] [address] Dr. Ko Durbin EOS # 0.00 103/ul Normal 0.00-0.70 [facility] Comment on above: Performed By: #### C BCCHRISTIANO #### [facility] [address] [place] [address] Dr. Ko Durbin EOS% 0.0 % Critically low 0.9-7.0 [facility] Comment on above: Performed By: #### C MARSHA #### [facility] [address] [address] [address] Ko Durbin HCT 32.8 % Critically low 36.0-48.0 [facility] Comment on above: Performed By: #### C MARSHA #### [facility] [address] [address] [address] Ko Durbin HGB 11.1 g/dl Critically low 12.0-16.0 [facility] Comment on above: Performed By: #### C MARSHA #### [facility] [address] [address] [address] Ko Durbin LYMPHM # 0.18 103/ul Critically low 1.20-3.80 [facility] Comment on above: Performed By: #### C MARSHA #### [facility] [address] [place] [address] Dr. Ko Durbin LYMPHM% 2.0 % Critically low 20.5-60.0 [facility] Comment on above: Performed By: #### C MARSHA #### [facility] [address] [place] [address] Dr. Ko Durbin MCH 27.7 pg Normal 26.7-34.0 [facility] Comment on above: Performed By: #### C MARSHA #### [facility] [address] [place] [address] Dr. Ko Durbin MCHC 33.8 g/dl Normal 29.9-35.2 [facility] Comment on above: Performed By: #### C MARSHA #### [facility] [address] [place] [address] Dr. Ko Durbin MCV 81.8 fL Normal 81.0-99.0 [facility] Comment on above: Performed By: #### C MARSHA #### [facility] [address] [place] [address] Dr. Ko Durbin METAMYELOCYTE # Normal [facility] Comment on above: Performed By: #### Ryan LARSON #### [facility] [address] [place] [address] Dr. Ko Durbin METAMYELOCYTE % Normal [facility] Comment on above: Performed By: #### C MARSHA #### [facility] [address] [place] [address] Dr. Ko Dubrin MONOM# 0.09 103/ul Critically low 0.30-0.80 [facility] Comment on above: Performed By: #### C MARSHA #### [facility] [address] [place] [address] Dr. Ko Durbin MONOM% 1.0 % Critically low 1.7-12.0 [facility] Comment on above: Performed By: #### C MARSHA #### [facility] [address] [place] [address] Dr. Ko Durbin MPV 9.8 fL Normal 9.5-13.5 [facility] Comment on above: Performed By: #### C MARSHA #### [facility] [address] [place] [address] Dr. Ko Durbin MYELOCYTE # Normal [facility] Comment on above: Performed By: #### C MARSHA #### [facility] [address] [place] [address] Dr. Ko Durbin MYELOCYTE % Normal [facility] Comment on above: Performed By: #### C MARSHA #### [facility] [address] [place] [address] Dr. Ko Durbin NRBC Normal [facility] Comment on above: Performed By: #### C MARSHA #### [facility] [address] [place] [address] Dr. Ko Durbin PLT 375 103/ul Normal 150-450 [facility] Comment on above: Performed By: #### C MARSHA #### [facility] [address] [place] [address] Dr. Ko Durbin RBC 4.01 106/ul Critically low 4.20-5.40 [facility] Comment on above: Performed By: #### C MARSHA #### [facility] [address] [place] [address] Dr. Ko Durbin RDW 13.5 % Normal 11.0-15.0 [facility] Comment on above: Performed By: #### C BCMAN #### [facility] [address] [address] [address] Ko Durbin SEG # 8.55 103/ul Critically high 1.40-6.50 [facility] Comment on above: Performed By: #### C BCMAN #### [facility] [address] [address] [address] Ko Durbin SEG % 95.0 % Critically high 43.0-75.0 [facility] Comment on above: Performed By: #### C BCMAN #### [facility] [address] [address] [address] Ko Durbin WBC 9.0 103/ul Normal 4.0-11.0 [facility] Comment on above: Performed By: #### C BCMAN #### [facility] [address] [place] [address] Dr. Ko Durbin POINT OF CARE GLUCOSEon 09-15 Glucose [Mass/Vol] 98 mg/dL Normal 74-106 [facility] Comment on above: Performed By: #### L ACT #### [facility] [address] [place] [address] Dr. Ko Durbin Glucose [Mass/Vol] 158 mg/dL Critically high 74-106 [facility] Comment on above: Performed By: #### P OCGLUC #### [facility] [address] [address] [address] Ko Durbin PROF 14(COMP METB)on 023 Albumin [Mass/Vol] 3.7 g/dL Normal 3.4-5.0 [facility] Comment on above: Performed By: #### L ACT #### [facility] [address] [place] [address] Dr. Ko Durbin Albumin/Globulin [Mass ratio] 1.2 {ratio} Normal [facility] Comment on above: Performed By: #### L ACT #### [facility] [address] [address] [address] Ko Durbin ALP [Catalytic activity/Vol] 42 U/L Critically low 46-116 [facility] Comment on above: Performed By: #### L ACT #### [facility] [address] [address] [address] Ko Durbin ALT [Catalytic activity/Vol] 30 U/L Normal 14-59 [facility] Comment on above: Performed By: #### L ACT #### [facility] [address] [address] [address] Ko Durbin Anion gap [Moles/Vol] 17.1 mmol/L Normal [facility] Comment on above: Performed By: #### L ACT #### [facility] [address] [address] [address] Ko Durbin AST [Catalytic activity/Vol] 15 U/L Normal 15-37 [facility] Comment on above: Performed By: #### L ACT #### [facility] [address] [address] [address] Ko Durbin Bilirubin [Mass/Vol] 0.2 mg/dL Normal 0.2-1.0 [facility] Comment on above: Performed By: #### L ACT #### [facility] [address] [address] [address] Ko Durbin Calcium [Mass/Vol] 9.6 mg/dL Normal 8.5-10.1 [facility] Comment on above: Performed By: #### L ACT #### [facility] [address] [address] [address] Ko Durbin Chloride [Moles/Vol] 100 mmol/L Normal 98-107 [facility] Comment on above: Performed By: #### L ACT #### [facility] [address] [address] [address] Ko Durbin CO2 [Moles/Vol] 22.3 mmol/L Normal 21.0-32.0 [facility] Comment on above: Performed By: #### L ACT #### [facility] [address] [address] [address] Ko Durbin Creatinine [Mass/Vol] 1.10 mg/dL Critically high 0.55-1.02 [facility] Comment on above: Performed By: #### L ACT #### [facility] [address] [address] [address] Ko Durbin EGFR-AF CYMRO >60 Normal >=60 [facility] Comment on above: Performed By: #### L ACT #### [facility] [address] [address] [address] Ko Durbin EGFR-NON AF CYMRO 54 mL/min/1.73m2 Critically low >=60 [facility] Comment on above: Performed By: #### L ACT #### [facility] [address] [address] [address] Ko Durbin Globulin (S) [Mass/Vol] 3.1 g/dL Normal [facility] Comment on above: Performed By: #### L ACT #### [facility] [address] [address] [address] Ko Durbin Glucose [Mass/Vol] 180 mg/dL Critically high 74-106 [facility] Comment on above: Performed By: #### L ACT #### [facility] [address] [address] [address] Ko Durbin Potassium [Moles/Vol] 3.4 mmol/L Critically low 3.5-5.1 [facility] Comment on above: Performed By: #### L ACT #### [facility] [address] [address] [address] Ko Durbin Protein [Mass/Vol] 6.8 g/dL Normal 6.4-8.2 [facility] Comment on above: Performed By: #### L ACT #### [facility] [address] [address] [address] Ko Durbin Sodium [Moles/Vol] 136 mmol/L Normal 136-145 [facility] Comment on above: Performed By: #### L ACT #### [facility] [address] [address] [address] Ko Durbin Urea nitrogen [Mass/Vol] 19.0 mg/dL Critically high 7.0-18.0 [facility] Comment on above: Performed By: #### L ACT #### [facility] [address] [place] [address] Dr. Ko Durbin Urea nitrogen/Creatinine [Mass ratio] 17.3 mg/mg Normal [facility] Comment on above: Performed By: #### L ACT #### [facility] [address] [place] [address] Dr. Ko Durbin BNPon 10-10-2022 Natriuretic peptide B (Bld) [Mass/Vol] 291.0 pg/mL Normal <=450.0 [facility] Comment on above: Performed By: #### C MP, CMADM, BNP #### [facility] [address] [place] [address] Dr. Ko Durbin CARDIAC PERRY ADMITon 023 CK [Catalytic activity/Vol] 286 U/L Critically high 26-192 [facility] Comment on above: Performed By: #### C MP, CMADM, BNP #### [facility] [address] [place] [address] Dr. Ko Durbin CK.MB [Mass/Vol] 4.51 ng/mL Critically high <=3.60 [facility] Comment on above: Performed By: #### C MP, CMADM, BNP #### [facility] [address] [place] [address] Dr. Ko Durbin HSTROP 5.0 pg/mL Normal 4.0-51.3 [facility] Comment on above: Result Comment: CUT- OFF POINTS HAVE BEEN ESTABLISHED BASED ON THE FOURTH UNIVERSAL DEFINITIONS OF MYOCARDIAL INFARCTION. THE UPPER REFERENCE LIMIT (URL) OF TROPONIN, DEFINED THE 99TH PERCENTILE OF cTnI DISTRIBUTION IN A REFERENCE POPULATION, HAS BEEN CONFIRMED THE DECISION THRESHOLD FOR [place] DIAGNOSIS. Performed By: #### C MP, CMADM, BNP #### [facility] [address] [place] [address] Dr. Ko Durbin JAROD 184 ng/mL Critically high 9-82 [facility] Comment on above: Performed By: #### C MP, CMADM, BNP #### [facility] [address] [place] [address] Dr. Ko Durbin CBC AUTO DIFFon 10-10-2022 BASO # 0.0 103/ul Normal 0.0-0.1 [facility] Comment on above: Performed By: #### C BC #### [facility] [address] [place] [address] Dr. Ko Durbin Basophils/100 WBC (Bld) 0.2 % Normal 0.2-2.0 [facility] Comment on above: Performed By: #### C BC #### [facility] [address] [place] [address] Dr. Ko Durbin EO # 0.0 103/ul Normal 0.0-0.7 [facility] Comment on above: Performed By: #### C BC #### [facility] [address] [place] [address] Dr. Ko Durbin Eosinophils/100 WBC (Bld) 0.0 % Critically low 0.9-7.0 [facility] Comment on above: Performed By: #### C BC #### [facility] [address] [place] [address] Dr. Ko Durbin Erythrocyte distribution width (RBC) [Ratio] 13.7 % Normal 11.0-15.0 [facility] Comment on above: Performed By: #### C BC #### [facility] [address] [place] [address] Dr. Ko Durbin Hematocrit (Bld) [Volume fraction] 31.8 % Critically low 36.0-48.0 [facility] Comment on above: Performed By: #### C BC #### [facility] [address] [place] [address] Dr. Ko Durbin Hemoglobin (Bld) [Mass/Vol] 11.1 g/dL Critically low 12.0-16.0 [facility] Comment on above: Performed By: #### C BC #### [facility] [address] [place] [address] Dr. Ko Durbin IG # 0.11 10e3/ul Critically high 0.00-0.03 [facility] Comment on above: Performed By: #### C BC #### [facility] [address] [place] [address] Dr. Ko Durbin IG % 1.0 % Critically high 0.0-0.5 [facility] Comment on above: Performed By: #### C BC #### [facility] [address] [place] [address] Dr. Ko Durbin LYMPH # 1.8 103/ul Normal 1.2-3.8 [facility] Comment on above: Performed By: #### C BC #### [facility] [address] [place] [address] Dr. Ko Durbin Lymphocytes/100 WBC (Bld) 16.2 % Critically low 20.5-60.0 [facility] Comment on above: Performed By: #### C BC #### [facility] [address] [place] [address] Dr. Ko Durbin MANUAL DIFF REQ NO Normal [facility] Comment on above: Performed By: #### C BC #### [facility] [address] [place] [address] Dr. Ko Durbin MCH (RBC) [Entitic mass] 28.2 pg Normal 26.7-34.0 [facility] Comment on above: Performed By: #### C BC #### [facility] [address] [place] [address] Dr. Ko Durbin MCHC (RBC) [Mass/Vol] 34.9 g/dL Normal 29.9-35.2 [facility] Comment on above: Performed By: #### C BC #### [facility] [address] [place] [address] Dr. Ko Durbin MCV (RBC) [Entitic vol] 80.7 fL Critically low 81.0-99. 0 [facility] Comment on above: Performed By: #### C BC #### [facility] [address] [place] [address] Dr. Ko Durbin MONO # 0.7 103/ul Normal 0.3-0.8 [facility] Comment on above: Performed By: #### C BC #### [facility] [address] [place] [address] Dr. Ko Durbin Monocytes/100 WBC (Bld) 6.3 % Normal 1.7-12.0 [facility] Comment on above: Performed By: #### C BC #### [facility] [address] [place] [address] Dr. Ko Durbin NEUT # 8.4 103/ul Critically high 1.4-6.5 [facility] Comment on above: Performed By: #### C BC #### [facility] [address] [place] [address] Dr. Ko Durbin Neutrophils/100 WBC (Bld) 76.3 % Critically high 43.0-75.0 [facility] Comment on above: Performed By: #### C BC #### [facility] [address] [place] [address] Dr. Ko Durbin Platelet mean volume (Bld) [Entitic vol] 9.5 fL Normal 9.5-13.5 [facility] Comment on above: Performed By: #### C BC #### [facility] [address] [place] [address] Dr. Ko Durbin PLT 384 103/ul Normal 150-450 [facility] Comment on above: Performed By: #### C BC #### [facility] [address] [place] [address] Dr. Ko Durbin RBC 3.94 106/ul Critically low 4.20-5.40 [facility] Comment on above: Performed By: #### C BC #### [facility] [address] [place] [address] Dr. Ko Durbin WBC 11.0 103/ul Normal 4.0-11.0 [facility] Comment on above: Performed By: #### C BC #### [facility] [address] [place] [address] Dr. Ko Durbin CULTURE URINEon 10-10-2022 CULTURE URINE Culture Observations : NO GROWTH. Normal [facility] Comment on above: Performed By: #### U RCX #### [facility] [address] [place] [address] Dr. Ko Durbin [facility] SARS-CoV-2 (COVID-19) RNA RADHA+probe Ql (Unsp spec) Not detected Normal NOT DETECTED [facility] Comment on above: Result Comment: When diagnostic [...] for this test is supported by the [place] of [employer] and Human Service's declaration that [...] used). Performed By: #### C VDTBH #### [facility] [address] [place] [address] Dr. Ko Durbin LACTATE/LACTIC ACIDon 2022 Lactate [Moles/Vol] 1.7 mmol/L Normal 0.4-1.9 [facility] Comment on above: Performed By: #### L ACT #### [facility] [address] [place] [address] Dr. Ko Durbin POINT OF CARE GLUCOSEon 09-15 Glucose [Mass/Vol] 139 mg/dL Critically high 74-106 [facility] Comment on above: Performed By: #### P OCGLUC #### [facility] [address] [place] [address] Dr. Ko Durbin Glucose [Mass/Vol] 99 mg/dL Normal 74-106 [facility] Comment on above: Performed By: #### L ACT #### [facility] [address] [place] [address] Dr. Ko Durbin PROF 14(COMP METB)on 023 Albumin [Mass/Vol] 3.9 g/dL Normal 3.4-5.0 [facility] Comment on above: Performed By: #### C MP, CMADM, BNP #### [facility] [address] [address] [address] Ko Durbin Albumin/Globulin [Mass ratio] 1.3 {ratio} Normal [facility] Comment on above: Performed By: #### C MP, CMADM, BNP #### [facility] [address] [address] [address] Ko Durbin ALP [Catalytic activity/Vol] 43 U/L Critically low 46-116 [facility] Comment on above: Performed By: #### C MP, CMADM, BNP #### [facility] [address] [place] [address] Dr. Ko Durbin ALT [Catalytic activity/Vol] 34 U/L Normal 14-59 [facility] Comment on above: Performed By: #### C MP, CMADM, BNP #### [facility] [address] [place] [address] Dr. Ko Durbin Anion gap [Moles/Vol] 16.2 mmol/L Normal [facility] Comment on above: Performed By: #### C MP, CMADM, BNP #### [facility] [address] [place] [address] Dr. Ko Durbin AST [Catalytic activity/Vol] 18 U/L Normal 15-37 [facility] Comment on above: Performed By: #### C MP, CMADM, BNP #### [facility] [address] [place] [address] Dr. Ko Durbin Bilirubin [Mass/Vol] 0.2 mg/dL Normal 0.2-1.0 [facility] Comment on above: Performed By: #### C MP, CMADM, BNP #### [facility] [address] [place] [address] Dr. Ko Durbin Calcium [Mass/Vol] 9.4 mg/dL Normal 8.5-10.1 [facility] Comment on above: Performed By: #### C MP, CMADM, BNP #### [facility] [address] [place] [address] Dr. Ko Durbin Chloride [Moles/Vol] 99 mmol/L Normal 98-107 [facility] Comment on above: Performed By: #### C MPKAREEMDM, BNP #### [facility] [address] [address] [address] Ko Durbin CO2 [Moles/Vol] 25.7 mmol/L Normal 21.0-32.0 [facility] Comment on above: Performed By: #### C MP CMADM, BNP #### [facility] [address] [place] [address] Dr. Ko Durbin Creatinine [Mass/Vol] 1.10 mg/dL Critically high 0.55-1.02 [facility] Comment on above: Performed By: #### C MP CMADM, BNP #### [facility] [address] [place] [address] Dr. Ko Dubrin EGFR-AF CYMRO >60 Normal >=60 [facility] Comment on above: Performed By: #### C ARI CMADM, BNP #### [facility] [address] [place] [address] Dr. Ko Durbin EGFR-NON AF CYMRO 54 mL/min/1.73m2 Critically low >=60 [facility] Comment on above: Performed By: #### C MP CMADM, BNP #### [facility] [address] [place] [address] Dr. Ko Durbin Globulin (S) [Mass/Vol] 2.9 g/dL Normal T [facility] Comment on above: Performed By: #### C MP CMADM, BNP #### [facility] [address] [place] [address] Dr. Ko Durbin Glucose [Mass/Vol] 97 mg/dL Normal 74-106 [facility] Comment on above: Performed By: #### C MP CMADM, BNP #### [facility] [address] [place] [address] Dr. Ko Durbin Potassium [Moles/Vol] 3.9 mmol/L Normal 3.5-5.1 [facility] Comment on above: Performed By: #### C MP CMADM, BNP #### [facility] [address] [place] [address] Dr. Ko Durbin Protein [Mass/Vol] 6.8 g/dL Normal 6.4-8.2 [facility] Comment on above: Performed By: #### C MP, CMADM, BNP #### [facility] [address] [place] [address] Dr. Ko Durbin Sodium [Moles/Vol] 137 mmol/L Normal 136-145 [facility] Comment on above: Performed By: #### C MP, CMADM, BNP #### [facility] [address] [place] [address] Dr. Ko Durbin Urea nitrogen [Mass/Vol] 16.0 mg/dL Normal 7.0-18.0 [facility] Comment on above: Performed By: #### C MP, CMADM, BNP #### [facility] [address] [place] [address] Dr. Ko Durbin Urea nitrogen/Creatinine [Mass ratio] 14.5 mg/mg Normal [facility] Comment on above: Performed By: #### C MP, CMADM, BNP #### [facility] [address] [place] [address] Dr. Ko Durbin UA RANDOM W/MICROSCOPICon BACTERIA NONE SEEN Normal NONE SEEN [facility] Comment on above: Performed By: #### L ACT #### [facility] [address] [place] [address] Dr. Ko Durbin Bilirubin Ql (U) Negative Normal NEGATIVE [facility] Comment on above: Performed By: #### L ACT #### [facility] [address] [place] [address] Dr. Ko Durbin CAST NONE SEEN Normal NONE SEEN [facility] Comment on above: Performed By: #### L ACT #### [facility] [address] [place] [address] Dr. Ko Durbin Clarity (U) CLEAR Normal CLEAR [facility] Comment on above: Performed By: #### L ACT #### [facility] [address] [place] [address] Dr. Ko Durbin Color (U) LT. YELLOW Normal YELLOW [facility] Comment on above: Performed By: #### L ACT #### [facility] [address] [place] [address] Dr. Ko Durbin Crystals LM Nom (Urine sed) NONE SEEN Normal NONE SEEN [facility] Comment on above: Performed By: #### L ACT #### [facility] [address] [place] [address] Dr. Ko Durbin Epithelial cells LM Ql (Urine sed) NONE SEEN Normal NONE SEEN /RARE [facility] Comment on above: Performed By: #### L ACT #### [facility] [address] [place] [address] Dr. Ko Durbin Glucose Ql (U) 500 mg/dl Abnormal NEGATIVE [facility] Comment on above: Performed By: #### L ACT #### [facility] [address] [place] [address] Dr. Ko Durbin Hemoglobin Ql (U) TRACE-INTACT Abnormal NEGATIVE [facility] Comment on above: Performed By: #### L ACT #### [facility] [address] [place] [address] Dr. Ko Durbin Ketones Ql (U) Negative Normal NEGATIVE [facility] Comment on above: Performed By: #### L ACT #### [facility] [address] [place] [address] Dr. Ko Durbin LEUKOCYTES Negative Normal NEGATIVE [facility] Comment on above: Performed By: #### L ACT #### [facility] [address] [place] [address] Dr. Ko Durbin MUCOUS NONE SEEN Normal NONE SEEN [facility] Comment on above: Performed By: #### L ACT #### [facility] [address] [place] [address] Dr. Ko Durbin Nitrite Ql (U) Negative Normal NEGATIVE [facility] Comment on above: Performed By: #### L ACT #### [facility] [address] [place] [address] Dr. Ko Durbin pH (U) 5.5 [pH] Normal 5-9 [facility] Comment on above: Performed By: #### L ACT #### [facility] [address] [address] [address] Ko Durbin RBC 0-2 Normal 0-2 [facility] Comment on above: Performed By: #### L ACT #### [facility] [address] [address] [address] Ko Durbin SPEC GRAVITY <=1.005 Abnormal 1.005-<=1.0 25 [facility] Comment on above: Performed By: #### L ACT #### [facility] [address] [address] [address] Ko Durbin UA PROTEIN Negative Normal NEGATIVE/ TRACE [facility] Comment on above: Performed By: #### L ACT #### [facility] [address] [place] [address] Dr. Ko Durbin Urobilinogen Qn (U) 0.2 {Rich'U}/dL Normal 0.2 - 1. 0 [facility] Comment on above: Performed By: #### L ACT #### [facility] [address] [place] [address] Dr. Ko Durbin WBC NONE SEEN Normal NONE SEEN The [facility] Comment on above: Performed By: #### L ACT #### [facility] [address] [place] [address] Dr. Ko Durbin XR CHEST 2 Von [...] LIAT MARISCAL Date: 2022-10-10 17:23 Normal [facility] XR wrist RT min 3V*on 2022 XR wrist RT min 3V* [facility] [employer] Other XR wrist RT min 3V* [facility] [employer] Other XR wrist RT min 3V* [facility] [employer] Other XR wrist RT min 3V* [place] [id number] [employer] Other XR wrist RT min 3V* XRay Report [place] Other XR wrist RT min 3V* Signed [employer] Other XR wrist RT min 3V* Patient: Kourtney Novak MR#: [id number] [employer] Other XR wrist RT min 3V* [id number] [employer] Other XR wrist RT min 3V* : 1975 Acct:[id number] [employer] Other XR wrist RT min 3V* Age/Sex: 46 / F ADM Date: 09/24/22 [employer] Other XR wrist RT min 3V* Loc: [facility] Room: Type : [facility] [employer] Other XR wrist RT min 3V* Attending Dr: Naz Gomes MD [employer] Other XR wrist RT min 3V* Copies to: Elyssa Gomes MD [employer] Other XR wrist RT min 3V* Ordering Provider: Elyssa Gomes MD [employer] Other XR wrist RT min 3V* Date of Service: 09/24/22 [employer] Other XR wrist RT min 3V* XR/XR wrist RT min 3V*: Osteochondrosis of lunate of right wrist [employer] Other XR wrist RT min 3V* RIGHT WRIST - 4 views [employer] Other XR wrist RT min 3V* CLINICAL HISTORY: Follow-up right wrist denervation and radial core decompression [employer] Other XR wrist RT min 3V* COMPARISON: None [employer] Other XR wrist RT min 3V* FINDINGS: [employer] Other XR wrist RT min 3V* No focal soft tissue abnormality. 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 Triquetral fracture is unchanged. Mild degenerative changes without bony erosion. [employer] Other XR wrist RT min 3V* XR/XR wrist RT min 3V* [employer] Other XR wrist RT min 3V* IMPRESSION: [place] [employer] Other XR wrist RT min 3V* NO SIGNIFICANT DURBIN E IN WRIST FINDINGS. [employer] Other XR wrist RT min 3V* Impression dictated by: Rainer Martinez Jr., D.O.09/24/2022 4:36 PM [employer] Other XR wrist RT min 3V* Dictation Location: [place] [address] [employer] Other XR wrist RT min 3V* Transcribed By: PWS 09/24/22 [facility] [employer] Other XR wrist RT min 3V* Dictated By: Rainer Martinez Jr DO 09/24/22 1634 [employer] Other XR wrist RT min 3V* Signed By: [employer] Other XR wrist RT min 3V* 09/24/22 1636 No [employer] Other Urine culture routineOrdered By: Sammie Gonzalez on 07-31-2022 Bacteria identified Cx Nom (U) 2 Days [facility] Automated erythrocytes count in urine sediment (number/area)Ordered By: Sammie Gonzalez on 07-29-2022 RBC Auto (Urine sed) [#/Area] 3-4 [HPF] 0-4 [facility] Automated leukocytes count i n urine sediment (number/area)Ordered By: Sammie Gonzalez on 07-29-2022 WBC Auto (Urine sed) [#/Area] None seen [HPF] 0-4 [facility] Bilirubin Test strip Ql (U)O rdered By: Sammie Gonzalez on 07-29-2022 Bilirubin Ql (U) Negative Negative [facility] Color Auto (U)Ordered By: Do ugten Gonzalez on 07-29-2022 Color (U) Yellow Yellow [facility] Ketones Auto test strip (U) [Mass/Vol]Ordered By: Sammie Gonzalez on 07-29-2022 Ketones (U) [Mass/Vol] Negative Negative [facility] Laboratory - UrinalysisOrder ed By: Sammie Gonzalez on 07-29-2022 Hyaline casts LM Ql (Urine sed) None seen [LPF] 0-8 [facility] Nitrite Test strip Ql (U)Ord ered By: Sammie Gonzalez on 07-29-2022 Nitrite Ql (U) Negative Negative [facility] Protein Auto test strip (U) [Mass/Vol]Ordered By: Sammie Gonzalez on 07-29-2022 Protein (U) [Mass/Vol] Negative Negative [facility] Specific gravity Auto test s trip (U) [Rel density]Ordered By: Sammie Gonzalez on 07-29-2022 Specific gravity (U) [Rel density] 1.013 1.001-1.030 [facility] Squamous epithelial cells de tection in urine sediment by light microscopyOrdered By: Sammie Gonzalez on 07-29-2022 Epithelial cells.squamous LM Ql (Urine sed) None seen [HPF] 0-2 [facility] Urine bacteria detection by automated methodOrdered By: Sammie Gonzalez on 07-29-2022 Bacteria Auto Ql (U) None seen None Seen [facility] Urine clarity by refractomet ry automatedOrdered By: Sammie Gonzalez on 07-29-2022 Clarity Refractometry automated (U) Clear Clear [facility] Urine culture routineOrdered By: Sammie Gonzalez on 07-29-2022 Bacteria identified Cx Nom (U) 2 Days [facility] Urine glucose measurement by automated test strip (mass/volume)Ordered By: Sammie Gonzalez on 07-29-2022 Glucose Auto test strip (U) [Mass/Vol] >=1000 mg/dL Normal [facility] Urine hemoglobin detection b y automated test stripOrdered By: Sammie Gonzalez on 07-29-2022 Hemoglobin Auto test strip Ql (U) Trace Negative [facility] Urine leukocyte esterase det ection by automated test stripOrdered By: Sammie Gonzalez on 07-29-2022 Leukocyte esterase Auto test strip Ql (U) Negative Negative [facility] Urobilinogen Auto test strip (U) [Mass/Vol]Ordered By: Sammie Gonzalez on 07-29-2022 Urobilinogen (U) [Mass/Vol] Normal mg/dL Normal [facility] pH Auto test strip (U)Ordere d By: Sammie Gonzalez on 07-29-2022 pH (U) 6.0 [pH] 5.0-9.0 [facility] Albumin [Mass/volume] in Ser um or PlasmaOrdered By: Sammie Gonzalez on 05-01-2022 Albumin [Mass/Vol] 4.0 g/dL 3.2-5.5 [facility] Basophils Auto (Bld) [#/Vol] Ordered By: Sammie Gonzalez on 05-01-2022 Basophils (Bld) [#/Vol] 0.0 10*3/uL 0.0-0.2 [facility] Basophils/100 WBC Auto (Bld) Ordered By: Sammie Gonzalez on 05-01-2022 Basophils/100 WBC (Bld) 0.8 % . [facility] Blood hemoglobin measurement (mass/volume)Ordered By: Sammie Gonzalez on 05-01-2022 Hemoglobin (Bld) [Mass/Vol] 12.4 g/dL 11.8-15.4 [facility] Blood leukocytes automated c ount (number/volume)Ordered By: Sammie Gonzalez on 05-01-2022 WBC (Bld) [#/Vol] 6.0 10*3/uL 4.5-11.0 [facility] Cholesterol [Mass/volume] in Serum or PlasmaOrdered By: Sammie Gonzalez on 05-01-2022 Cholesterol [Mass/Vol] 189 mg/dL 140-200 [facility] Comment on above: Chol less than 200 m g/dl low risk Chol 201-239 mg/dl borderline risk Chol 240 mg/dl and greater high risk Chol less than 200 m g/dl low riskChol 201-239 mg/dl borderline riskChol 240 mg/dl and greater high risk Cholesterol in LDL Calc [Mas s/Vol]Ordered By: Sammie Gonzalez on 05-01-2022 Cholesterol in LDL [Mass/Vol] 92 mg/dL 0-100 [facility] Comment on above: LDL ATP III CLASSIFI [...] 05-01-2022 Cholesterol in VLDL [Mass/Vol] 19 mg/dL [facility] Creatinine and Glomerular fi ltration rate.predicted panel (S/P/Bld)Ordered By: Sammie Gonzalez on 05-01-2022 Creatinine [Mass/Vol] 1.06 mg/dL 0.44-1.03 [facility] Eosinophils Auto (Bld) [#/Vo l]Ordered By: Sammie Gonzalez on 05-01-2022 Eosinophils (Bld) [#/Vol] 0.1 10*3/uL 0.0-0.45 [facility] Eosinophils/100 WBC Auto (Bl d)Ordered By: Sammie Gonzalez on 05-01-2022 Eosinophils/100 WBC (Bld) 1.2 % . [facility] Erythrocyte distribution wid th Auto (RBC) [Ratio]Ordered By: Sammie Gonzalez on 05-01-2022 Erythrocyte distribution width (RBC) [Ratio] 13.7 % 11.9-15.3 [facility] Estimated glomerular filtrat ion rate (GFR) non- AmericanOrdered By: Sammie Gonzalez on 05-01-2022 GFR/1.73 sq M.predicted among non-blacks MDRD (S/P/Bld) [Vol rate/Area] 56 mL/Min [facility] Globulin Calc (S) [Mass/Vol] Ordered By: Sammie Gonzalez on 05-01-2022 Globulin (S) [Mass/Vol] 2.3 g/dL [facility] Glucose mean value [Mass/vol ume] in Blood Estimated from glycated hemoglobinOrdered By: Sammie Gonzalez on 05-01-2022 Average glucose Estimated from glycated hemoglobin (Bld) [Mass/Vol] 117 mg/dL [facility] Hematocrit Auto (Bld) [Volum e fraction]Ordered By: Sammie Gonzalez on 05-01-2022 Hematocrit (Bld) [Volume fraction] 38.4 % 34.0-46.4 [facility] Hemoglobin A1c percentageOrd ered By: Sammie Gonzalez on 05-01-2022 HbA1c (Bld) [Mass fraction] 5.7 % 4.3-5.6 [facility] Comment on above: Increased risk for d iabetes: 5.7 - 6.4 diabetes: >6.4 glycemic control for adults with diabetes: <7.0 Increased risk for d iabetes: 5.7 - 6.4diabetes: >6.4glycemic control for adults with diabetes: <7.0 Iron [Mass/volume] in Serum or PlasmaOrdered By: Sammie Gonzalez on 05-01-2022 Iron [Mass/Vol] 48 ug/dL 40-150 [facility] Laboratory - Chemistry and C hemistry - challengeOrdered By: Sammie Gonzalez on 05-01-2022 Natriuretic peptide B (Bld) [Mass/Vol] 7.0 pg/mL 5-100 [facility] Laboratory - Hematology and Cell countsOrdered By: Sammie Gonzalez on 05-01-2022 Nucleated RBC/100 WBC (Bld) [Ratio] 0.0 % 0-0.5 [facility] Lymphocytes Auto (Bld) [#/Vo l]Ordered By: Sammie Gonzalez on 05-01-2022 Lymphocytes (Bld) [#/Vol] 1.4 10*3/uL 1.00-4.8 [facility] Lymphocytes/100 WBC Auto (Bl d)Ordered By: Sammie Gonzalez on 05-01-2022 Lymphocytes/100 WBC (Bld) 23.0 % . [facility] MCH Auto (RBC) [Entitic mass ]Ordered By: Sammie Gonzalez on 05-01-2022 MCH (RBC) [Entitic mass] 28.9 pg 24.7-34.3 [facility] MCHC Auto (RBC) [Mass/Vol]Or dered By: Sammie Gonzalez on 05-01-2022 MCHC (RBC) [Mass/Vol] 32.4 g/dL 32.0-35.0 [facility] MCV Auto (RBC) [Entitic vol] Ordered By: Sammie Gonzalez on 05-01-2022 MCV (RBC) [Entitic vol] 89.1 fL 80-100 [facility] Monocytes Auto (Bld) [#/Vol] Ordered By: Sammie Gonzalez on 05-01-2022 Monocytes (Bld) [#/Vol] 0.6 10*3/uL 0.0-0.8 [facility] Monocytes/100 WBC Auto (Bld) Ordered By: Sammie Gonzalez on 05-01-2022 Monocytes/100 WBC (Bld) 9.1 % . [facility] Neutrophils Auto (Bld) [#/Vo l]Ordered By: Sammie Gonzalez on 05-01-2022 Neutrophils (Bld) [#/Vol] 4.0 10*3/uL 1.8-7.7 [facility] Neutrophils/100 WBC Auto (Bl d)Ordered By: Sammie Gonzalez on 05-01-2022 Neutrophils/100 WBC (Bld) 65.9 % . [facility] No Panel InformationOrdered By: Sammie Gonzalez on 05-01-2022 Estimated GFR () > 60 mL/Min [facility] Comment on above: GFR estimated refere nce range: According to KDOQI guidelines, <60 ml/min/1.73m2 is sufficient to diagnose a patient with chronic kidney disease. Pharmacy Creatinine Clearance (Chem N/A [facility] Platelet mean volume Auto (B ld) [Entitic vol]Ordered By: Sammie Gonzalez on 05-01-2022 Platelet mean volume (Bld) [Entitic vol] 8.5 fL 6.3-10.7 [facility] Platelets Auto (Bld) [#/Vol] Ordered By: Sammie Gonzalez on 05-01-2022 Platelets (Bld) [#/Vol] 385 10*3/uL 150-450 [facility] Protein [Mass/volume] in Ser um or PlasmaOrdered By: Sammie Gonzalez on 05-01-2022 Protein [Mass/Vol] 6.3 g/dL 6.1-7.9 [facility] RBC Auto (Bld) [#/Vol]Ordere d By: Sammie Gonzalez on 05-01-2022 RBC (Bld) [#/Vol] 4.31 10*6/uL 3.60-5.00 [facility] Serum or plasma alanine bass otransferase measurement without P-5'-P (enzymatic activiOrdered By: Sammie Gonzalez on 05-01-2022 ALT No additional P-5'-P [Catalytic activity/Vol] 22 U/L 10-60 [facility] Serum or plasma albumin/glob ulin mass ratioOrdered By: Sammie Gonzalez on 05-01-2022 Albumin/Globulin [Mass ratio] 1.7 {ratio} [facility] Serum or plasma alkaline leela sphatase measurement (enzymatic activity/volume)Ordered By: Sammie Gonzalez on 05-01-2022 ALP [Catalytic activity/Vol] 52 U/L 32-92 [facility] Serum or plasma aspartate am inotransferase measurement (enzymatic activity/volume)Ordered By: Sammie Gonzalez on 05-01-2022 AST [Catalytic activity/Vol] 17 U/L 10-42 [facility] Serum or plasma calcium kiara urement (mass/volume)Ordered By: Sammie Gonzalez on 05-01-2022 Calcium [Mass/Vol] 9.5 mg/dL 8.2-10.2 [facility] Serum or plasma chloride aby surement (moles/volume)Ordered By: Sammie Gonzalez on 05-01-2022 Chloride [Moles/Vol] 100 mmol/L 95-114 [facility] Serum or plasma glucose kiara urement (mass/volume)Ordered By: Sammie Gonzalez on 05-01-2022 Glucose [Mass/Vol] 96 mg/dL 70-100 [facility] Comment on above: ADA recommended refe [...] Cholesterol in HDL [Mass/Vol] 78 mg/dL 35-85 [facility] Comment on above: HDL CHOL ATP-III CLA SSIFICATION Cardiovascular Risk HDL > or equal to 60 mg/dL LOW HDL < 40 mg/dL HIGH HDL CHOL ATP-III CLA SSIFICATION Cardiovascular RiskHDL > or equal to 60 mg/dL LOWHDL < 40 mg/dL HIGH Serum or plasma potassium me asurement (moles/volume)Ordered By: Sammie Gonzalez on 05-01-2022 Potassium [Moles/Vol] 4.2 mmol/L 3.5-5.1 [facility] Serum or plasma sodium measu rement (moles/volume)Ordered By: Sammie Gonzalez on 05-01-2022 Sodium [Moles/Vol] 134 mmol/L 136-146 [facility] Serum or plasma thyroxine (T 4) measurement (mass/volume)Ordered By: Sammie Gonzalez on 05-01-2022 T4 [Mass/Vol] 9.20 ug/dL 5.39-11.82 [facility] Serum or plasma total biliru bin measurement (mass/volume)Ordered By: Sammie Gonzalez on 05-01-2022 Bilirubin [Mass/Vol] 0.4 mg/dL 0.3-1.2 [facility] Serum or plasma total carbon dioxide measurement (moles/volume)Ordered By: Sammei Gonzalez on 05-01-2022 CO2 [Moles/Vol] 24.2 mmol/L 22.0-30.0 [facility] Serum or plasma total choles terol/high density lipoprotein (HDL) cholesterol mass ratOrdered By: Sammie Gonzalez on 05-01-2022 Cholesterol.total/Tali sterol in HDL [Mass ratio] 2.4 {ratio} <5.0 [facility] Serum or plasma urea nitroge n measurement (mass/volume)Ordered By: Sammie Gonzalez on 05-01-2022 Urea nitrogen [Mass/Vol] 14 mg/dL 9-23 [facility] TSH DL <= 0.005 mIU/L QnOrde red By: Sammie Gonzalez on 05-01-2022 TSH Qn 3.07 m[IU]/L 0.45-5.33 [facility] Triglyceride [Mass/volume] i n Serum or PlasmaOrdered By: Sammie Gonzalez on 05-01-2022 Triglyceride [Mass/Vol] 97 mg/dL 35-149 [facility] Comment on above: TRIG ATP III [...] Gonzalez on 05-01-2022 T3RU 25 % 24-39 [facility] Comment on above: Performed at: [employer] [address] [place], [place] [id number] Rug Clipper: Maxim Daniel PhD, Phone: [phone] Performed at: [employer] [place] [id number] Director: Maxim Daniel PhD, Phone: [phone] XR wrist RT 2Von 01-24-2022 XR wrist RT 2V [facility] [employer] Other XR wrist RT 2V [facility] [place] Other XR wrist RT 2V 1111 [facility] [place] Other XR [place] [address] [address] No rt [place] Other XR wrist RT 2V XRay Report [employer] Other XR wrist RT 2V Signed [employer] Other XR wrist RT 2V Patient: Kourtney Novak MR#: [id number] [place] [employer] Other XR wrist RT 2V [id number] [employer] Other XR wrist RT 2V : 1975 Acct:[id number] [employer] Other XR wrist RT 2V Age/Sex: 46 / F ADM Date: 01/24/22 [employer] Other XR wrist RT 2V Loc: [facility]XD Room: Type : [facility] [employer] Other XR wrist RT 2V Attending Dr: Naz Gomes MD [employer] Other XR wrist RT 2V Ordering Provider: Elyssa Gomes MD [employer] Other XR wrist RT 2V Date of Service: 01/24/22 [employer] Other XR wrist RT 2V XR/XR wrist RT 2V: Osteochondrosis of lunate of right wrist [employer] Other XR wrist RT 2V Copies to: Elyssa Gomes MD [employer] Other XR wrist RT 2V Right wrist 01/24/2022. [employer] Other XR wrist RT 2V CLINICAL DATA: Osteochondrosis of lunate of right wrist. [employer] Other XR wrist RT 2V FINDINGS: 2 views of the right wrist were obtained and are compared with a prior study 12/24/2021. [employer] Other XR wrist RT 2V No acute fracture or dislocation is identified. The lunate again appears sclerotic. This finding [employer] Other XR wrist RT 2V has not significantl y changed. No collapse is seen. No soft tissue swelling is visualized. [employer] Other XR wrist RT 2V XR/XR wrist RT 2V [employer] Other XR wrist RT 2V IMPRESSION: Scleroti c lunate, not significantly changed. [employer] Other XR wrist RT 2V Impression dictated by: Brody Marks Jr., M.D.01/24/2022 3:00 PM [employer] Other XR wrist RT 2V Dictation Location: [place] [address] [employer] Other XR wrist RT 2V Transcribed By: GRACIE 01/24/22 1500 [employer] Other XR wrist RT 2V Dictated By: Brody Marks Jr, MD 01/24/22 1454 [employer] Other XR wrist RT 2V Signed By: [employer] Other XR wrist RT 2V 01/24/22 1500 [employer] Other XR wrist RT min 3V*on 2021 XR wrist RT min 3V* [facility] [employer] Other XR wrist RT min 3V* [facility] [place] [employer] Other XR wrist RT min 3V* [address] [place] [address] [employer] Other XR wrist RT min 3V* [place] [address] [employer] Other XR wrist RT min 3V* XRay Report [place] Other XR wrist RT min 3V* Signed [employer] Other XR wrist RT min 3V* Patient: Kourtney Novak MR#: [id number] [employer] Other XR wrist RT min 3V* [id number] [employer] Other XR wrist RT min 3V* : 1975 Acct:[id number] [employer] Other XR wrist RT min 3V* Age/Sex: 46 / F ADM Date: 11/20/21 [employer] Other XR wrist RT min 3V* Loc: [facility] Room: Type : [facility] [employer] Other XR wrist RT min 3V* Attending Dr: Naz Gomes MD [employer] Other XR wrist RT min 3V* Ordering Provider: Elyssa Gomes MD [employer] Other XR wrist RT min 3V* Date of Service: 11/20/21 [employer] Other XR wrist RT min 3V* XR/XR wrist RT min 3V*: Other specified postprocedural [employer] Other XR wrist RT min 3V* states;Osteochondros i s [facility] [employer] Other XR wrist RT min 3V* Copies to: Elyssa Gomes MD [employer] Other XR wrist RT min 3V* 4 viewsRIGHT wrist plain film [employer] Other XR wrist RT min 3V* COMPARISON:None [employer] Other XR wrist RT min 3V* HISTORY: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 No collapse identified. Calculi metacarpal bones [employer] Other XR wrist RT min 3V* identified. No soft tissue abnormality seen. [employer] Other XR wrist RT min 3V* XR/XR wrist RT min 3V* [employer] Other XR wrist RT min 3V* IMPRESSION:Sclerotic changes of the lunate. Adequate bony alignment. No collapse. [employer] Other XR wrist RT min 3V* Impression dictated by: George Gray M.D.11/20/2021 3:59 PM [employer] Other XR wrist RT min 3V* Dictation Location: [place] [address] [employer] Other XR wrist RT min 3V* Transcribed By: PWS 11/20/21 [facility]9 [employer] Other XR wrist RT min 3V* Dictated By: George Gray DO 11/20/21 155 [employer] Other XR wrist RT min 3V* Signed By: [employer] Other XR wrist RT min 3V* 11/20/21 1559 No rt [place]-8 Other XR wrist RT min 3V*on 2020 XR wrist RT min 3V* [facility] [employer] Other XR wrist RT min 3V* [facility] [place] [employer] Other XR wrist RT min 3V* [address] [place] [address] [employer] Other XR wrist RT min 3V* [place] [id number] [employer] Other XR wrist RT min 3V* XRay Report [place] Other XR wrist RT min 3V* Signed [employer] Other XR wrist RT min 3V* Patient: Kourtney Novak MR#: [id number] [employer] Other XR wrist RT min 3V* [id number] [employer] Other XR wrist RT min 3V* : 1975 Acct:[id number] [employer] Other XR wrist RT min 3V* Age/Sex: 45 / F ADM Date: 08/28/21 [employer] Other XR wrist RT min 3V* Loc: [facility] Room: Type : [facility] [employer] Other XR wrist RT min 3V* Attending Dr: Naz Gomes MD [employer] Other XR wrist RT min 3V* Ordering Provider: Elyssa Gomes MD [employer] Other XR wrist RT min 3V* Date of Service: 08/28/21 [employer] Other XR wrist RT min 3V* XR/XR wrist RT min 3V*: M92.211 [employer] Other XR wrist RT min 3V* Copies to: Elyssa Gomes MD [employer] Other XR wrist RT min 3V* RIGHT WRIST - 4 views [employer] Other XR wrist RT min 3V* CLINICAL DATA: Right wrist pain and decreased range of motion. No injury. [employer] Other XR wrist RT min 3V* COMPARISON: 11/15/2020 and MRI 11/15/2020 [employer] Other XR wrist RT min 3V* AP, lateral, oblique and ulnar deviation views were obtained. There is no acute fracture or [employer] Other XR wrist RT min 3V* dislocation. Minor sclerosis is again seen at the lunate where there is also subchondral cystic [employer] Other XR wrist RT min 3V* change medially. Thi s is similar to the prior. There is no developing joint space narrowing or [employer] Other XR wrist RT min 3V* hypertrophy. No prominent soft tissue swelling is noted. [employer] Other XR wrist RT min 3V* XR/XR wrist RT min 3V* [employer] Other XR wrist RT min 3V* IMPRESSION: [place]-8 Other XR wrist RT min 3V* BONY CHANGES AT THE LUNATE, SIMILAR TO THE COMPARISON. [employer] Other XR wrist RT min 3V* NO ACUTE FINDINGS. [employer] Other XR wrist RT min 3V* Impression dictated by: Trixie Irizarry M.D.08/28/2021 4:42 PM [employer] Other XR wrist RT min 3V* Dictation Location: [facility] [employer] Other XR wrist RT min 3V* Transcribed By: [facility] 08/28/21 1642 [employer] Other XR wrist RT min 3V* Dictated By: Trixie Irizarry MD 08/28/21 1639 [employer] Other XR wrist RT min 3V* Signed By: [employer] Other XR wrist RT min 3V* 08/28/21 1642 No rt [place]-8 Other XR FOOT 3V AP/LAT/OBL BILon 03-04-2021 [...] No other significant abnormality. 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: [facility] Transcribe Date/Time: Mar 04 2021 2:57P Dictated by : TOBI HERRMANN MD This examination was interpreted and the report reviewed and electronically signed by: TOBI HERRMANN MD on Mar 04 2021 2:59PM EST [id number] N [facility] Vital Signs Date Time Vital Sign Value Performing Clinician Facility 06-05-2025 22:31-0400 Diastolic blood pressure 82 mm[Hg] Sammie Gonzalez MD Work Phone: [facility] 06-05-2025 22:31-0400 Heart rate 74 /min Sammie Gonzalez MD Work Phone: [facility] 06-05-2025 22:31-0400 Respiratory rate 16 /min Sammie Gonzalez MD Work Phone: [facility] 06-05-2025 22:31-0400 SaO2% (BldA) [Mass fraction] 99 % Sammie Gonzalez MD Work Phone: [facility] 06-05-2025 22:31-0400 Systolic blood pressure 144 mm[Hg] Sammie Gonzalez MD Work Phone: [facility] 06-05-2025 20:19-0400 Body height 162.56 cm Sammie Gonzalez MD Work Phone: [facility] 06-05-2025 20:19-0400 Body temperature 98.3 [degF] Sammie Gonzalez MD Work Phone: [facility] 06-05-2025 20:19-0400 Body weight 113.39 kg Sammie Gonzalez MD Work Phone: [facility] 05-24-2025 14:51-0400 Body height 165.1 cm Zeinab LANDEROS [facility] 05-24-2025 14:51-0400 Body mass index (BMI) [Ratio] 40.77 kg/m2 Zeinab Rice HUYENCNPeggy Work Phone: [facility] 05-24-2025 14:51-0400 Body weight 111.13 kg Zeinab LANDEROS Work Phone: [facility] 05-24-2025 14:51-0400 Diastolic blood pressure 82 mm[Hg] Zeinab Rice WHCNP Work Phone: [facility] 05-24-2025 14:51-0400 Heart rate 88 /min Zeinab Rice WHCNP Work Phone: [facility] 05-24-2025 14:51-0400 Respiratory rate 18 /min Zeinab Rice WHCNP Work Phone: [facility] 05-24-2025 14:51-0400 SaO2% (BldA) [Mass fraction] 98 % Zeinab Rice WHCNP Work Phone: [facility] 05-24-2025 14:51-0400 Systolic blood pressure 126 mm[Hg] Zeinab Rice WHCNP Work Phone: [facility] 05-23-2025 13:21-0400 Body mass index (BMI) [Ratio] 41.27 kg/m2 Sharon Wilburn LYFT DRIVER Work Phone: [facility] 05-23-2025 13:21-0400 Body temperature 98.29 [degF] Sharon Wilburn LYFT DRIVER Work Phone: [facility] 05-23-2025 13:21-0400 Body weight 112.49 kg Sharon Wilburn LYFT DRIVER Work Phone: [facility] 05-23-2025 13:21-0400 Diastolic blood pressure 84 mm[Hg] Sharon Wilburn LYFT DRIVER Work Phone: [facility] 05-23-2025 13:21-0400 Heart rate 74 /min Sharon Wilburn LYFT DRIVER Work Phone: [facility] 05-23-2025 13:21-0400 SaO2% (BldA) [Mass fraction] 98 % Sharon Wilburn LYFT DRIVER Work Phone: [facility] 05-23-2025 13:21-0400 Systolic blood pressure 118 mm[Hg] Sharon Wilburn LYFT DRIVER Work Phone: [facility] 03-15-2025 12:03-0400 Body mass index (BMI) [Ratio] 40.83 kg/m2 Fellow Appointments Work Phone: [facility] 03-15-2025 12:03-0400 Body weight 111.3 kg Fellow Appointments Work Phone: [facility] Comment on above: with shoes 03-15-2025 12:03-0400 Diastolic blood pressure 79 mm[Hg] Fellow Appointments Work Phone: [facility] Comment on above: notified 03-15-2025 12:03-0400 Heart rate 82 /min Fellow Appointments Work Phone: [facility] 03-15-2025 12:03-0400 Respiratory rate 18 /min Fellow Appointments Work Phone: [facility] 03-15-2025 12:03-0400 SaO2% (BldA) [Mass fraction] 99 % Fellow Appointments Work Phone: [facility] 03-15-2025 12:03-0400 Systolic blood pressure 156 mm[Hg] Fellow Appointments Work Phone: [facility] Comment on above: notified 03-13-2025 13:17-0400 Body height 165.1 cm Zeinab Rice WHCNP Work Phone: [facility] 03-13-2025 13:17-0400 Body mass index (BMI) [Ratio] 40.77 kg/m2 Zeinab Rice WHCNP Work Phone: [facility] 03-13-2025 13:17-0400 Body weight 111.13 kg Zeinab Rice WHCNP Work Phone: [facility] 03-13-2025 13:17-0400 Diastolic blood pressure 74 mm[Hg] Zeinab Rice WHCNP Work Phone: [facility] 03-13-2025 13:17-0400 Heart rate 76 /min Zeinab Rice WHCNP Work Phone: [facility] 03-13-2025 13:17-0400 Respiratory rate 16 /min Zeinab Mckinney WHCNP Work Phone: [facility] 03-13-2025 13:17-0400 SaO2% (BldA) [Mass fraction] 97 % Zeinab Mckinney WHCNP Work Phone: [facility] 03-13-2025 13:17-0400 Systolic blood pressure 126 mm[Hg] Zeinab Mckinney WHCNP Work Phone: [facility] 03-06-2025 10:11-0400 Body mass index (BMI) [Ratio] 39.95 kg/m2 Mario Alberto Phillips RN [facility] 03-06-2025 10:11-0400 Body temperature 99.19 [degF] Mario Alberto Phillips RN [facility] 03-06-2025 10:11-0400 Body weight 108.9 kg Mario Alberto Phillips RN [facility] 03-06-2025 10:11-0400 Diastolic blood pressure 64 mm[Hg] Mario Alberto Phillips RN [facility] 03-06-2025 10:11-0400 Heart rate 93 /min Mario Alberto Phillips RN [facility] 03-06-2025 10:11-0400 Respiratory rate 18 /min Mario Alberto Phillips RN [facility] 03-06-2025 10:11-0400 SaO2% (BldA) [Mass fraction] 100 % Mario Alberto Phillips RN [facility] Comment on above: 03-06-2025 10:11-0400 Systolic blood pressure 149 mm[Hg] Mario Alberto Phillips RN [facility] 02-20-2025 15:51-0400 SaO2% (BldA) [Mass fraction] 98 % ERIK PINEDA [facility] Comment on above: Order Comment: Specimen Type: ARTERIAL B LOOD SPECIMENOrdering Facility: Address: [address] [place] [address] Performed By: #### A LLMG ####[facility] LABCLIA [id number] [place] [id number] [facility] 02-20-2025 13:28-0400 SaO2% (BldA) [Mass fraction] 99 % ERIK PINEDA [facility] Comment on above: Order Comment: Specimen Type: ARTERIAL B LOOD SPECIMENOrdering Facility: Address: [address] [place] [address] Performed By: #### A LLMG ####[facility] LABCLIA [id number] [place] [id number] [facility] 02-14-2025 07:42-0400 Body height 163.8 cm Pacc 2 Work Phone: [facility] 02-14-2025 07:42-0400 Body mass index (BMI) [Ratio] 40.98 kg/m2 Pacc 2 Work Phone: [facility] 02-14-2025 07:42-0400 Body temperature 98.71 [degF] Pacc 2 Work Phone: [facility] 02-14-2025 07:42-0400 Body weight 110 kg Pacc 2 Work Phone: [facility] 02-14-2025 07:42-0400 Diastolic blood pressure 74 mm[Hg] Pacc 2 Work Phone: [facility] 02-14-2025 07:42-0400 Heart rate 80 /min Pacc 2 Work Phone: [facility] 02-14-2025 07:42-0400 Respiratory rate 16 /min Pacc 2 Work Phone: [facility] 02-14-2025 07:42-0400 SaO2% (BldA) [Mass fraction] 96 % Pacc 2 Work Phone: [facility] 02-14-2025 07:42-0400 Systolic blood pressure 114 mm[Hg] Pacc 2 Work Phone: [facility] 12-28-2024 09:34-0400 Body mass index (BMI) [Ratio] 41.06 kg/m2 Zeinab Wood MD Work Phone: [facility] 12-28-2024 09:34-0400 Body weight 110.2 kg Zeinab Wood MD Work Phone: [facility] 12-28-2024 09:34-0400 Diastolic blood pressure 65 mm[Hg] Zeinab Wood MD Work Phone: [facility] 12-28-2024 09:34-0400 Heart rate 109 /min Zeinab Wood MD Work Phone: [facility] 12-28-2024 09:34-0400 Systolic blood pressure 104 mm[Hg] Zeinab Wood MD Work Phone: [facility] 07-13-2024 17:34-0400 Body mass index (BMI) [Ratio] 40.77 kg/m2 Estevan Polanco LYFT DRIVER Work Phone: [facility] 07-13-2024 17:34-0400 Body temperature 98.71 [degF] Estevan Polanco LYFT DRIVER Work Phone: [facility] 07-13-2024 17:34-0400 Body weight 111.13 kg Estevan Polanco LYFT DRIVER Work Phone: [facility] 07-13-2024 17:34-0400 Diastolic blood pressure 88 mm[Hg] Estevan Polanco LYFT DRIVER Work Phone: [facility] 07-13-2024 17:34-0400 Heart rate 87 /min Estevan Polanco LYFT DRIVER Work Phone: [facility] 07-13-2024 17:34-0400 SaO2% (BldA) [Mass fraction] 99 % Estevan Polanco LYFT DRIVER Work Phone: [facility] 07-13-2024 17:34-0400 Systolic blood pressure 124 mm[Hg] Estevan Polanco LYFT DRIVER Work Phone: [facility] 05-30-2024 09:38-0400 Body mass index (BMI) [Ratio] 40.61 kg/m2 Zeinab Wood MD Work Phone: [facility] 05-30-2024 09:38-0400 Body weight 109 kg Zeinab Wood MD Work Phone: [facility] 05-30-2024 09:38-0400 Diastolic blood pressure 72 mm[Hg] Zeinab Wood MD Work Phone: [facility] 05-30-2024 09:38-0400 Heart rate 87 /min Zeinab Wood MD Work Phone: [facility] 05-30-2024 09:38-0400 Respiratory rate 18 /min Zeinab Wood MD Work Phone: [facility] 05-30-2024 09:38-0400 Systolic blood pressure 109 mm[Hg] Zeinab Wood MD Work Phone: [facility] 06-30-2023 10:52-0400 Body height 164 cm Erik Pineda MD Work Phone: [facility] 06-30-2023 10:52-0400 Body temperature 98.71 [degF] Erik Pineda MD Work Phone: [facility] 06-30-2023 10:52-0400 Body weight 101.88 kg Erik Pineda MD Work Phone: [facility] 06-30-2023 10:52-0400 Diastolic blood pressure 58 mm[Hg] Erik Pineda MD Work Phone: [facility] 06-30-2023 10:52-0400 Heart rate 103 /min Erik Pineda MD Work Phone: [facility] 06-30-2023 10:52-0400 Respiratory rate 18 /min Erik Pineda MD Work Phone: [facility] 06-30-2023 10:52-0400 SaO2% (BldA) [Mass fraction] 97 % Erik Pineda MD Work Phone: [facility] 06-30-2023 10:52-0400 Systolic blood pressure 117 mm[Hg] Erik Pineda MD Work Phone: [facility] 05-06-2023 07:10-0400 Body height 165.1 cm MD Sammie Gonzalez Work Phone: [facility] 05-06-2023 07:10-0400 Body weight 102.05 kg MD Sammie Gonzalez Work Phone: [facility] 03-31-2023 09:30-0400 Body height 165.1 cm Russell Shields Other [employer] Other 03-31-2023 09:30-0400 Body mass index (BMI) [Ratio] 36.94 kg/m2 Russell Shields Other [employer] Other 03-31-2023 09:30-0400 Body weight 100.7 kg Russell Shields Other [employer] Other 03-31-2023 09:30-0400 Diastolic blood pressure 68 mm[Hg] Russell Shields Other [employer] Other 03-31-2023 09:30-0400 Systolic blood pressure 109 mm[Hg] Russell Shields Other [employer] Other 09-29-2022 15:28-0500 Body weight 114.08 kg Zeinab Wood MD Work Phone: [facility] 09-29-2022 15:28-0500 Diastolic blood pressure 56 mm[Hg] Zeinab Wood MD Work Phone: [facility] 09-29-2022 15:28-0500 Heart rate 99 /min Zeinab Wood MD Work Phone: [facility] 09-29-2022 15:28-0500 Systolic blood pressure 115 mm[Hg] Zeinab Wood MD Work Phone: [facility] 07-17-2022 15:45-0400 Body height 165.1 cm Beti Bowles Other [employer] Other 03-31-2022 14:00-0400 Body height 165.1 cm Beti [facility] Other [employer] Other 03-31-2022 14:00-0400 Body mass index (BMI) [Ratio] 39.6 kg/m2 Beti [facility] Other [employer] Other 03-31-2022 14:00-0400 Body weight 107.96 kg Beti [facility] Other [employer] Other 01-27-2022 14:15-0400 Body height 165.1 cm Beti [facility] Other [employer] Other 01-27-2022 14:15-0400 Body mass index (BMI) [Ratio] 39.93 kg/m2 Beti Jelena Other [employer] Other 01-27-2022 14:15-0400 Body weight 108.86 kg Beti [facility] Other [employer] Other 01-20-2022 11:03-0400 Body height 165.1 cm Zeinab Wood MD Work Phone: [facility] 01-20-2022 11:03-0400 Body weight 104.06 kg Zeinab Wood MD Work Phone: [facility] 01-20-2022 11:03-0400 Diastolic blood pressure 67 mm[Hg] Zeinab Wood MD Work Phone: [facility] 01-20-2022 11:03-0400 Heart rate 108 /min Zeinab Wood MD Work Phone: [facility] 01-20-2022 11:03-0400 Systolic blood pressure 113 mm[Hg] Zeinab Wood MD Work Phone: [facility] 11-20-2021 16:15-0500 Body height 165.1 cm Elyssa Calvey Other [employer] Other 11-20-2021 16:15-0500 Body mass index (BMI) [Ratio] 39.93 kg/m2 Elyssa Calvey Other [employer] Other 11-20-2021 16:15-0500 Body weight 108.86 kg Elyssa Calvey Other [employer] Other 10-08-2021 15:15-0500 Body height 165.1 cm Elyssa Calvey Other [employer] Other 10-08-2021 15:15-0500 Body mass index (BMI) [Ratio] 39.43 kg/m2 Elyssa Calvey Other [employer] Other 10-08-2021 15:15-0500 Body weight 107.5 kg Elyssa Calvey Other [employer] Other 08-28-2021 16:15-0500 Body height 165.1 cm Elyssa Calvey Other [employer] Other 08-28-2021 16:15-0500 Body mass index (BMI) [Ratio] 38.77 kg/m2 Elyssa Calvey Other [employer] Other 08-28-2021 16:15-0500 Body weight 105.69 kg Elyssa Calvey Other [employer] Other Encounters Encounter Date Encounter Type Care Provider Facility Start: 06-06-2025 End: 06-06-2025 Telephone encounter Lamar Rose NP Work Phone: [facility] Start: 06-05-2025 End: 06-05-2025 Emergency department patient visit Sammie Gonzalez MD Work Phone: -Emergency Room Work Phone: Start: 05-30-2025 End: 05-30-2025 ambulatory Sammie Gonzalez MD Work Phone: [facility] Work Phone: Start: 05-30-2025 End: 05-30-2025 Patient encounter procedure Krishan Nuñez DO [facility] Work Phone: Start: 05-30-2025 End: 05-30-2025 Patient encounter procedure Krishan Nuñez DO [facility] Start: 05-30-2025 End: 05-30-2025 ambulatory Sammie Gonzalez MD Work Phone: [facility] Work Phone: Start: 05-29-2025 End: 05-29-2025 ambulatory Ridge Hollingsworth MD Facility:[facility] Start: 05-26-2025 End: 05-26-2025 Patient encounter procedure Sammie Langston MD [facility] Start: 05-26-2025 End: 05-26-2025 ambulatory Sammie Gonzalez MD Work Phone: [facility] Work Phone: Start: 05-24-2025 End: 05-24-2025 Office outpatient visit 5 minutes Zeinab Mckinney [facility] Start: 05-24-2025 ambulatory Zeinab morley [facility] Start: 05-23-2025 End: 05-23-2025 Office outpatient visit 25 minutes Sharon Wilburn NP Work Phone: [facility] Comment on above: Fibromyalgia Start: 05-23-2025 End: 05-23-2025 ambulatory SHARON WILBURN Not Available Start: 05-17-2025 End: 05-18-2025 Refill Rachele Fenton [employer] SAL[employer] SPECIALIST.GENERAL SURGERY PHYSICIAN ASSISTANT Work Phone: Neurology [facility] Comment on above: Refill Request Start: 04-25-2025 End: 04-26-2025 Refill Zeinab Wood MD Work Phone: Rheumatology Comment on above: Refill Request Start: 04-24-2025 End: 04-24-2025 ambulatory Ridge Hollingsworth MD Facility:[facility] Start: 04-12-2025 End: 04-12-2025 Telemedicine consultation with patient Rachele Fenton [employer] SALES SPECIALIST.GENERAL SURGERY PHYSICIAN ASSISTANT Work Phone: Neurology Start: 04-12-2025 End: 04-12-2025 ambulatory Rachele Fenton [employer] SALES SPECIALIST.GENERAL SURGERY PHYSICIAN ASSISTANT Work Phone: Neurology Comment on above: Meningioma (HCC) (Pr imary Dx); Chronic daily headache Start: 03-29-2025 End: 03-29-2025 Telemedicine consultation with patient Erik Pineda MD Work Phone: [facility]] Start: 03-29-2025 End: 03-29-2025 ambulatory Erik Pineda MD Work Phone: [facility]3] Comment on above: Intracranial meningi sera (HCC) (Primary Dx); Postprocedural state; Dizziness and giddiness Start: 03-26-2025 End: 03-27-2025 ambulatory Erik Pineda MD Work Phone: [facility]3] Comment on above: Incision Start: 03-22-2025 End: 03-22-2025 ambulatory Sammie Gonzalez MD Work Phone: [facility] Work Phone: Start: 03-22-2025 End: 03-22-2025 Patient encounter procedure Elyssa Gomes MD -[facility] Work Phone: Start: 03-20-2025 End: 03-20-2025 [...] 03-13-2025 Office outpatient visit 10 minutes Zeinab Sharmila Hank [facility] Phone: [facility] Start: 03-12-2025 End: 03-13-2025 Refill Rachele Fenton APRN.GENERAL SURGERY PHYSICIAN ASSISTANT Work Phone: Neurology [facility] Comment on above: Refill Request Start: 03-08-2025 End: 03-08-2025 Telephone encounter Mario Alberto Phillips RN [facility] [place] Comment on above: Surgical Followup Start: 03-06-2025 End: 03-06-2025 Refill Zeinab Wood MD Work Phone: Rheumatology Comment on above: Refill Request Start: 03-06-2025 End: 03-06-2025 Nursing evaluation of patient and report Mario Alberto Phillips RN [facility] Comment on above: S/P craniotomy (Prim kt Dx); Intracranial meningioma (HCC); Postop check Start: 03-06-2025 End: 03-06-2025 ambulatory [facility] Facility:[facility] Start: 03-02-2025 End: 03-02-2025 Admission to same day surgery center Heather Moy APRN.GENERAL SURGERY PHYSICIAN ASSISTANT Work Phone: Neurosurgery Comment on above: Benign neoplasm of m eninges (HCC) (Primary Dx) Start: 03-02-2025 End: 03-02-2025 Telemedicine consultation with patient Heather Moy GENERAL SURGERY PHYSICIAN ASSISTANT Work Phone: Neurosurgery Start: 03-02-2025 End: 03-02-2025 ambulatory [facility] Facility:[facility] Start: 02-24-2025 End: 02-27-2025 Refill Zeinab Wood MD Work Phone: Rheumatology Comment on above: Refill Request Start: 02-23-2025 End: 02-23-2025 Telephone encounter Mario Alberto Phillips [facility] [place] Comment on above: Surgical Followup Start: 02-20-2025 End: 02-22-2025 Evaluation and management of inpatient [facility] Facility:[facility] Start: 02-17-2025 End: 02-17-2025 Telephone encounter Mario Alberto Phillips RN [facility] [place] Comment on above: PreOp Call Start: 02-15-2025 End: 02-15-2025 Telemedicine consultation with patient Erik Pineda MD Work Phone: [facility] [place] Start: 02-15-2025 End: 02-17-2025 ambulatory Erik Pineda MD Work Phone: [facility] [place] Comment on above: Intracranial meningi sera (HCC) (Primary Dx) Consent Start: 02-15-2025 End: 02-15-2025 Telephone encounter Mehul Martin APRN.CNP Work Phone: Pre Anesthesia Comment on above: Patient Update Start: 02-15-2025 End: 02-15-2025 ambulatory [facility] Facility:[facility] Start: 02-15-2025 Encounter for other preprocedural examination ERIK PINEDA [facility] Start: 02-14-2025 Encounter for other preprocedural examination ERIK PINEDA [facility] Start: 02-14-2025 End: 02-14-2025 Patient encounter status Mri (1.5t) Work Phone: [facility] Start: 02-14-2025 End: 02-14-2025 Subsequent hospital visit by physician Mri [facility] Alyssa (1.5t) Work Phone: Radiology Comment on above: Intracranial meningi sera (HCC) [D32.0] Start: 02-14-2025 End: 02-14-2025 Admission to establishment [facility] 2 Work Phone: Pre Anesthesia Start: 02-14-2025 End: 02-14-2025 Anesthesia consultation [place] [address] Work Phone: Pre Anesthesia Comment on above: Pre-op evaluation (P rimary Dx); Anxiety; Chronic obstructive pulmonary disease, unspecified COPD type ([facility]); Depression, unspecified depression type; Type 2 diabetes mellitus without complication, without long-term current use of insulin ([facility]); Mixed hyperlipidemia; Fibromyalgia; Intracranial meningioma ([facility]); Preop testing; MAREK (obstructive sleep apnea); Gastroesophageal reflux disease, unspecified whether esophagitis present; Hypothyroidism, unspecified type; Class 3 severe obesity due to excess calories with serious comorbidity and body mass index (BMI) of 40.0 to 44.9 in adult; Inflammatory arthritis Start: 02-14-2025 End: 02-14-2025 Patient encounter status [place] [id number] Work Phone: [facility] Start: 02-14-2025 End: 02-14-2025 Preprocedural examination done [place] [address] Work Phone: [facility] Work Phone: Start: 02-14-2025 End: 02-14-2025 ambulatory ZEINAB WOOD Facility:[facility] Start: 02-10-2025 End: 02-10-2025 Patient encounter procedure Sammie Gonzalez MD Work Phone: [facility] [place] Work Phone: Start: 02-10-2025 End: 02-10-2025 ambulatory Sammie Gonzalez MD Work Phone: [facility] Work Phone: Start: 02-01-2025 End: 02-01-2025 Patient encounter procedure Sammie Gonzalez MD Work Phone: [facility] Work Phone: Start: 01-23-2025 End: 01-26-2025 Refill Rachele Fenton APRN.CNP Work Phone: Neurology Headache [facility] Comment on above: Med Change Request Start: 01-06-2025 End: 01-06-2025 ambulatory SAMMIE GONZALEZ Facility:[facility] Start: 12-29-2024 End: 12-29-2024 Refill Rachele Mendesmarie CEDILLO Work Phone: Neurology [facility] Comment on above: Refill Request Start: 12-28-2024 End: 12-28-2024 Office outpatient visit 25 minutes Zeinab Wood MD Work Phone: Rheumatology Comment on above: Inflammatory arthrit is (Primary Dx); Fibromyalgia; Encounter for medication monitoring Start: 12-28-2024 End: 12-28-2024 ambulatory ZEINAB WOOD Facility:[facility] Start: 12-27-2024 End: 12-27-2024 ambulatory Sammie Gonzalez MD Work Phone: [facility] Work Phone: Start: 12-27-2024 End: 12-27-2024 Patient encounter procedure Sammie Gonzalez MD Work Phone: [facility] Work Phone: Start: 12-13-2024 End: 12-13-2024 Patient encounter procedure Sammie Gonzalez MD Work Phone: [facility] Start: 12-13-2024 End: 12-13-2024 ambulatory Sammie Gonzalez MD Work Phone: [facility] Work Phone: Start: 12-05-2024 End: 12-05-2024 Telephone encounter Mario Alberto Phillips RN [facility] Comment on above: Care Coordination (M yCvalentina Follow up - Surgery Planning ) Start: 11-03-2024 End: 11-03-2024 Patient encounter procedure Sammie Gonzalez MD Work Phone: [facility] Phys[facility] Work Phone: Start: 11-03-2024 End: 11-03-2024 ambulatory Sammie Gonzalez MD Work Phone: [facility] Work Phone: Start: 10-10-2024 End: 10-10-2024 Telephone encounter Zeinab Wood MD Work Phone: Rheumatology Comment on above: Principal Embedded Software Engineer - O ther (Lab order problem/) Refill Request Start: 09-27-2024 End: 09-27-2024 ambulatory Sammie Gonzalez MD Work Phone: [facility] Work Phone: Start: 09-27-2024 End: 09-27-2024 Patient encounter procedure Sammie Gonzalez MD Work Phone: [facility] Work Phone: Start: 09-20-2024 End: 09-21-2024 Telephone encounter Zeinab Wood MD Work Phone: Rheumatology Comment on above: Results (Lab results from [facility]) Start: 09-20-2024 End: 09-20-2024 Patient encounter procedure Sammie Gonzalez MD Work Phone: [facility] Start: 09-20-2024 End: 09-20-2024 ambulatory Sammie Gonzalez MD Work Phone: [facility] Work Phone: Start: 09-16-2024 End: 09-16-2024 Patient encounter procedure Sammie Gonzalez MD Work Phone: [facility] Work Phone: Start: 09-16-2024 End: 09-16-2024 ambulatory Sammie Gonzalez MD Work Phone: [facility] Work Phone: Start: 09-09-2024 End: 09-15-2024 ambulatory Zeinab Wood MD Work Phone: Rheumatology Start: 09-09-2024 End: 09-15-2024 Patient encounter procedure Zeinab Wood MD Work Phone: Rheumatology Comment on above: Labs Start: 08-28-2024 End: 09-09-2024 Refill Zeinab Wood MD Work Phone: Rheumatology Comment on above: Refill Request Start: 08-01-2024 End: 08-01-2024 ambulatory Ridge Hollingsworth MD Facility:[facility] Start: 07-18-2024 End: 07-18-2024 ambulatory Ridge Hollingsworth MD Facility:[facility] Start: 07-13-2024 End: 07-13-2024 ambulatory ESTEVAN POLANCO Not Available Start: 07-13-2024 End: 07-13-2024 Office outpatient visit 25 minutes Estevan Polanco LYFT DRIVER Work Phone: [facility] Comment on above: Tooth infection (Ingrid cezar Dx) Start: 07-04-2024 End: 07-04-2024 ambulatory Ridge Holl[facility]worth MD [facility] Start: 06-22-2024 End: 06-22-2024 Patient encounter procedure MD Sammie Gonzalez Work Phone: [facility] Start: 06-22-2024 End: 06-22-2024 ambulatory MD Sammie Gonzalez Work Phone: [facility] Work Phone: Start: 06-21-2024 End: 06-21-2024 ambulatory MD Sammie Gonzalez Work Phone: [facility] Work Phone: Start: 06-21-2024 End: 06-21-2024 Patient encounter procedure MD Sammie Gonzalez Work Phone: [facility] Work Phone: Start: 06-20-2024 End: 06-20-2024 ambulatory Ridge Hollingsworth MD Facility: [facility] Start: 05-30-2024 End: 05-30-2024 ambulatory ZEINAB WOOD Facility:[facility] Start: 05-30-2024 End: 05-30-2024 Patient encounter procedure Zeinab Wood MD Work Phone: Rheumatology Comment on above: Inflammatory arthrit is (Primary Dx); Fibromyalgia; Medication monitoring encounter Start: 05-25-2024 End: 05-26-2024 Refill Mohammad Hamdan SOLAR ENERGY SALES SPECIALIST.GENERAL SURGERY PHYSICIAN ASSISTANT Work Phone: Neurology [facility] Comment on above: Refill Request Start: 05-12-2024 End: 05-12-2024 ambulatory MD Sammie Gonzalez Work Phone: [facility] Work Phone: Start: 05-12-2024 End: 05-12-2024 Patient encounter procedure MD Sammie Gonzalez Work Phone: [facility] Start: 03-25-2024 Refill Zeinab Wood MD Work Phone: Rheumatology Comment on above: Refill Request Start: 03-21-2024 ambulatory Mohammad Hamda n SOLAR ENERGY SALES SPECIALIST.GENERAL SURGERY PHYSICIAN ASSISTANT Work Phone: [facility] Comment on above: Robax[place] Start: 03-18-2024 ambulatory Mohammad Hamda n SOLAR ENERGY SALES SPECIALIST.GENERAL SURGERY PHYSICIAN ASSISTANT Work Phone: [facility] Comment on above: Insurance Start: 03-08-2024 Telephone encounter Erik martinez MD Work Phone: [facility] [place] Comment on above: epidural steroid inj ection Start: 03-04-2024 End: 03-04-2024 ambulatory MD Sammie Gonzalez Work Phone: [facility] Work Phone: Start: 03-04-2024 End: 03-04-2024 Patient encounter procedure MD Sammie Gonzalez Work Phone: [facility] Work Phone: Start: 02-15-2024 End: 02-15-2024 ambulatory MD Sammie Gonzalez Work Phone: [facility] Work Phone: Start: 02-15-2024 End: 02-15-2024 Patient encounter procedure MD Sammie Gonzalez Work Phone: [facility] [place] Work Phone: Start: 02-10-2024 Telephone encounter Rachele acevedo APRN.GENERAL SURGERY PHYSICIAN ASSISTANT Work Phone: Neurology Comment on above: Insurance Authorizat ion; [place] - [place] / [employer]. Start: 02-09-2024 End: 02-09-2024 ambulatory MD Sammie Gonzalez Work Phone: [facility] Work Phone: Start: 02-09-2024 End: 02-09-2024 Patient encounter procedure MD Sammie Gonzalez Work Phone: [facility]-MRI [address] Work Phone: Start: 02-05-2024 End: 02-05-2024 ambulatory Rachele Fenton SOLAR ENERGY SALES SPECIALIST.GENERAL SURGERY PHYSICIAN ASSISTANT Work Phone: Neurology [facility] Comment on above: Meningioma (HCC) (Pr imary Dx); Chronic daily headache Start: 02-05-2024 End: 02-05-2024 Telemedicine consultation with patient Rachele Fenton APRN.GENERAL SURGERY PHYSICIAN ASSISTANT Work Phone: Neurology [facility] Start: 02-02-2024 End: 02-02-2024 ambulatory Fellow Appointments Work Phone: [facility]3] Comment on above: Intracranial meningi sera (HCC) (Primary Dx) Start: 02-02-2024 End: 02-02-2024 Telemedicine consultation with patient Fellow Appointments Work Phone: [facility] [place] Start: 02-02-2024 Telephone encounter Mario Alberto Phillips RN [facility] [place] Comment on above: Appointment Start: 01-30-2024 Rocio Corey MD Work Phone: Neurology [facility] Comment on above: Refill Request Start: 01-29-2024 ambulatory ERIK PINEDA Facilit y:[facility] 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 eninges (HCC) [D32.9] Start: 01-27-2024 Refill Zeinab Wood MD Work Phone: Rheumatology Comment on above: Refill Request Start: 01-26-2024 End: 01-26-2024 Patient encounter procedure MD Sammie Gonzalez Work Phone: [facility] Work Phone: Start: 01-19-2024 Telephone encounter Mario Alberto Phillips RN [facility] [place] Comment on above: Schedule Surgery ([place] rgery Planning ) Start: 01-08-2024 Telephone encounter Zeinab kenyon MD Work Phone: Rheumatology Comment on above: Results Start: 01-08-2024 End: 01-08-2024 ambulatory MD Sammie Gonzalez Work Phone: [facility] Work Phone: Start: 01-08-2024 End: 01-08-2024 Patient encounter procedure MD Sammie Gonzalez Work Phone: [facility] Start: 01-05-2024 Telephone encounter Mario Alberto Phillips RN [facility] [place] Comment on above: Schedule Surgery Start: 01-04-2024 Telephone encounter Zeinab kenyon MD Work Phone: Rheumatology Comment on above: Lab Orders/FAX Start: 11-29-2023 Refill Zeinab Wood MD Work Phone: Rheumatology Comment on above: Refill Request Start: 11-25-2023 End: 11-25-2023 Patient encounter procedure MD Sammie Gonzalez Work Phone: [facility] Work Phone: Start: 11-12-2023 Refill Zeinab Wood MD Work Phone: Rheumatology Comment on above: Refill Request Start: 11-11-2023 Telephone encounter Mario Alberto Phillips RN [facility] [place] Comment on above: Care Coordination (f ollow up) Start: 11-11-2023 End: 11-11-2023 Patient encounter procedure MD Sammie Gonzalez Work Phone: [facility] Start: 11-10-2023 Refill Zeinab Wood MD Work Phone: Rheumatology Comment on above: Refill Request Start: 11-09-2023 Refill Zeinab Wood MD Work Phone: Rheumatology Comment on above: Refill Request Start: 07-05-2023 Admission to [facility] surgery center Erik Pineda MD Work Phone: [facility]3] Comment on above: Surgery Start: 07-05-2023 ambulatory Erik castañeda MD Work Phone: [facility] Start: 07-02-2023 Telephone encounter Erik martinez MD Work Phone: [facility]3] Comment on above: Patient Update (Disc uss Surgery March 2024) Start: 06-30-2023 End: 06-30-2023 Patient encounter procedure Erik Pineda MD Work Phone: [facility]3] Comment on above: Intracranial meningi sera (HCC) (Primary Dx) Start: 06-26-2023 End: 06-26-2023 Office outpatient new 45 minutes Fahad Corey MD Work Phone: Neurology Headache [facility] Comment on above: Medication overuse h eadache (Primary Dx); Brain mass; Meningioma (HCC); Chronic daily headache Start: 05-22-2023 End: 05-22-2023 ambulatory MD Sammie Gonzalez Work Phone: [facility] Work Phone: Start: 05-22-2023 End: 05-22-2023 Patient encounter procedure MD Sammie Gonzalez Work Phone: [facility] Start: 05-13-2023 Telephone encounter Moira Ramos rs SOLAR ENERGY SALES SPECIALIST.GENERAL SURGERY PHYSICIAN ASSISTANT Work Phone: [facility] [place] Comment on above: TRIAGE Start: 05-06-2023 End: 05-06-2023 ambulatory MD Sammie Gonzalez Work Phone: [facility] Work Phone: Start: 05-06-2023 End: 05-06-2023 Patient encounter procedure MD Sammie Gonzalez Work Phone: [facility] [place] Work Phone: Start: 04-29-2023 End: 04-29-2023 ambulatory MD Sammie Gonzalez Work Phone: [facility] Work Phone: Start: 04-29-2023 End: 04-29-2023 Patient encounter procedure MD Sammie Gonzalez Work Phone: [facility] Work Phone: Start: 04-15-2023 End: 04-15-2023 ambulatory MD Sammie Gonzalez Work Phone: [facility] Work Phone: Start: 04-15-2023 End: 04-15-2023 Patient encounter procedure MD Sammie Gonzalez Work Phone: [facility] Start: 04-13-2023 Refill Zeinab Wood MD Work Phone: Rheumatology Comment on above: Refill Request Start: 04-13-2023 Refill Zeinab Wood MD Work Phone: Rheumatology Comment on above: Refill Request Start: 04-06-2023 End: 04-06-2023 Patient encounter procedure MD Sammie Gonzalez Work Phone: [facility]Nuc Med [facility] Work Phone: Start: 03-31-2023 End: 03-31-2023 ambulatory Russell Shields Other [employer] Other Start: 03-31-2023 Patient encounter procedure Russell Shields [facility] Start: 03-07-2023 Refill Zeinab Wood MD Work Phone: Rheumatology Comment on above: Refill Request Start: 01-18-2023 Refill Zeinab Wood MD Work Phone: Rheumatology Comment on above: Refill Request Start: 12-17-2022 End: 12-17-2022 ambulatory Elyssa Gomes Other [employer] Other Start: 12-17-2022 Office outpatient visit 15 [...] encounter procedure MD Sammie Gonzalez Work Phone: [facility] Start: 09-24-2022 End: 09-24-2022 ambulatory MD Sammie Gonzalez Work Phone: [facility] Work Phone: Start: 09-24-2022 Office outpatient visit 15 minutes Elyssa Mireya [facility] Start: 08-05-2022 Office outpatient visit 15 minutes Elyssa Mireya [facility] Start: 08-05-2022 End: 08-05-2022 ambulatory MD Sammie Gonzalez Work Phone: [facility] Work Phone: Start: 08-05-2022 End: 08-05-2022 Patient encounter procedure MD Sammie Gonzalez Work Phone: [facility] Start: 07-29-2022 End: 07-29-2022 ambulatory MD Sammie Gonzalez Work Phone: [facility] Work Phone: Start: 07-29-2022 End: 07-29-2022 Patient encounter procedure MD [facility]ammie Gonzalez [facility] Start: 07-17-2022 End: 07-17-2022 ambulatory Beti Bowles Other [employer] Other Start: 07-17-2022 Office outpatient visit 15 minutes Beti Bowles [facility] Start: 06-25-2022 End: 06-25-2022 ambulatory Beti Bowles Other [employer] Other Start: 06-25-2022 Office outpatient visit 15 minutes Beti Bowles [facility] Start: 05-10-[address] SAMMIE GONZALEZ Facility : Start: 05-06-2022 End: 05-06-2022 Patient encounter procedure MD Sammie Gonzalez Work Phone: [facility] Start: 05-01-2022 End: 05-01-2022 Patient encounter procedure MD Sammie Gonzalez [facility] Start: 03-31-2022 End: 03-31-2022 ambulatory Beti Bowles Other [employer] Other Start: 03-31-2022 Office outpatient visit 15 minutes Beti Bowles [facility] Start: 03-21-2022 End: 03-21-2022 Discharged Recurring MD Sammie Gonzalez Work Phone: [facility] Start: 01-27-2022 End: 01-27-2022 ambulatory Btei Bowles Other [employer] Other Start: 01-27-2022 Office outpatient visit 15 minutes Beti Bowles [facility] Start: 01-24-2022 End: 01-24-2022 ambulatory Elyssamaxine Gomes Other [employer] Other Start: 01-24-2022 Office outpatient visit 15 minutes Elyssa Calvey [facility] Start: 01-20-2022 End: 01-20-2022 ambulatory Beti Bowles Other [employer] Other Start: 01-20-2022 Office outpatient visit 15 minutes Beti Bowles [facility] Start: 01-20-2022 End: 01-20-2022 Patient encounter procedure Zeinab Wood MD Work Phone: Rheumatology Comment on above: Inflammatory arthrit is (Primary Dx); Myalgia Start: 12-24-2021 End: 12-24-2021 ambulatory Elyssa Calvey Other [employer] Other Start: 12-24-2021 Postop follow up vis it related to original px Elyssa Calvey [facility] Start: 12-19-2021 End: 12-19-2021 ambulatory Beti Bowles Other [employer] Other Start: 12-19-2021 Telephone encounter Beti Hooksney [facility] Start: 12-02-2021 End: 12-02-2021 ambulatory Beti Bowles Other [employer] Other Start: 12-02-2021 Office outpatient visit 15 minutes Beti Hooksney [facility] Start: 11-20-2021 End: 11-20-2021 ambulatory Elyssa Calvey Other [employer] Other Start: 11-20-2021 Postop follow up vis it related to original px Elyssa Calvey [facility] Start: 10-08-2021 End: 10-08-2021 ambulatory Elyssa Calvey Other [employer] Other Start: 10-08-2021 Office outpatient visit 25 minutes Elyssa Cesarey [facility] Start: 08-28-2021 End: 08-28-2021 ambulatory Elyssa Calvey Other [employer] Other Start: 08-28-2021 Office outpatient visit 25 minutes Elyssa Calvey [facility] Start: 08-12-2021 End: 08-12-2021 ambulatory Elyssa Calvey Other [employer] Other Start: 08-12-2021 Telephone encounter Elyssa Calvey [facility] Start: 06-18-2021 Office outpatient visit 15 minutes Elyssa Calvey [facility] Start: 06-05-2021 Office outpatient visit 15 minutes Beti Jelena [facility] Start: 05-11-2017 End: 05-12-2017 Ambulatory DEFAULT PHYSICIAN Facility:[facility] Procedures Date Procedure Procedure Detail Performing Clinician Start: 06-05-2025 Plain chest X-ray Roni Gonzalez MD Work Phone: Start: 05-30-2025 Plain X-ray of right shoulder Sammie Gonzalez MD Work Phone: Start: 05-24-2025 End: 05-24-2025 Medroxyprogesterone acetate Zeinab Jean-Baptiste HCNP Work Phone: Start: 03-13-2025 End: 03-13-2025 Documentation of current medications Zeinab Mckinney WHCNP Work Phone: Start: 03-13-2025 End: 03-13-2025 Medroxyprogesterone acetate Zeinab Jean-Baptiste HCNP Work Phone: Start: 02-14-2025 Mri brain brain stem w/o w/contrast material Erik Pineda MD Work Phone: Start: 02-14-2025 Antibody screen ERIK MCKEON Comment on above: Order Comment: Speci men Type: BLOOD SPECIMENOrdering Facility: Address: [address] [place] [address] Performed By: #### T [id number] ####CC MAIN BLOOD BANKCLIA [id number] [place] [address] [place] Start: 02-10-2025 Ultrasonography [...] Author Start: 08-17-2025 Hemoglobin A1c measurement HbA1C [facility] Start: 08-04-2025 [facility] Work Phone: Start: 08-02-2025 [facility] Work Phone: Start: 06-29-2025 End: 06-29-2025 Patient encounter procedure 06/29/2025 1:40 PM EDT Office Visit Rheumatology [address] [place] [address] Zeinab Wood MD [address] [facility] [address] [place] [address] 6 month follow up Rheumatology Comment on above: 6 month follow up Start: 06-27-2025 [facility] Work Phone: Start: 06-22-2025 End: 06-22-2025 Patient encounter procedure 06/22/2025 2:20 PM EDT Office Visit Rheumatology [address] [place] [address] Zeinab Wood MD [address] [facility] [place] [address] 6 month follow up Rheumatology Comment on above: 6 month follow up Start: 05-30-2025 Plain X-ray of right shoulder XR shoulder RT min 2V* [facility] Start: 05-30-2025 XR Shoulder - right Views [facility] Start: 05-24-2025 End: 05-24-2025 [facility] Work Phone: Start: 05-15-2025 Influenza vaccination [facility] Start: 04-12-2025 End: 04-12-2025 ambulatory 04/12/2025 7:00 AM EDT [facility] [address] [id number] Rachele Fenton, SOLAR ENERGY SALES SPECIALIST.GENERAL SURGERY PHYSICIAN ASSISTANT [address] [id number] Tension headaches Neurology Comment on above: Tension headaches Start: 03-29-2025 End: 03-29-2025 ambulatory 03/29/2025 10:30 AM EDT [facility] [address] [phone] Erik Pineda MD [address] [place] [address] postop [facility]3] Comment on above: postop Start: 03-13-2025 [facility] Work Phone: Start: 03-06-2025 End: 03-06-2025 Nursing evaluation of patient and report 03/06/2025 10:30 AM EDT Nurse Visit [facility] [address] [id number] Mario Alberto Phillips, VENUS [address] [place] [address] postop [facility] Comment on above: postop Start: 03-02-2025 End: 03-02-2025 Admission to same day surgery center 03/02/2025 1:00 PM EDT [facility] [place] [facility] [address] [id number] Heather Moy, [employer] SALES SPECIALIST.GENERAL SURGERY PHYSICIAN ASSISTANT [address] [id number] Surgical Pathology discussion Neurosurgery Comment on above: Surgical Pathology discussion Start: 02-20-2025 End: 02-20-2025 Admission to same day surgery center 02/20/2025 12:45 PM EDT - 02/20/2025 6:45 PM EDT Surgery Admitting [address] [place] [address] Erik Pineda MD [address] [id number] ORBITOCRANIAL TO ANT CRAN FOSSA W/ SUPRAORB [...] 12:45 PM EDT Hospital Encounter Admitting [address] [place] [address] Erik Pineda MD [address] [place] [address] Intracranial meningioma (HCC) [D32.0], Preop testing [Z01.818] Admitting Comment on above: Intracranial meningioma (HCC) [D32.0], P reop testing [Z01.818] Start: 02-20-2025 End: 02-20-2025 Admission to same day surgery center 02/20/2025 7:30 AM EDT - 02/20/2025 1:30 PM EDT Surgery Admitting [address] [place] [address] Erik Pineda MD [address] [place] [address] ORBITOCRANIAL TO ANT CRAN FOSSA W/ SUPRAORB [...] 7:30 AM EDT Hospital Encounter Admitting [address] [place] [address] Erik Pineda MD [address] [place] [address] Intracranial meningioma (HCC) [D32.0], Preop testing [Z01.818] Admitting Comment on above: Intracranial meningioma (HCC) [D32.0], P reop testing [Z01.818] Start: 02-15-2025 End: 02-15-2025 Admission to same day surgery center 02/15/2025 2:30 PM EDT [facility] [place] [address] [place] [address] Erik Pineda MD [address] [facility] [place] [address] surgery discussion/ consent / MRI review [facility] [place] Comment on above: surgery discussion/ consent / MRI review Start: 02-14-2025 End: 05-16-2025 CONFIRM BLOOD TYPE CONFIRM BLOOD TYPE Blood Bank Routine Pre-op evaluation Expected: 02/14/2025, Expires: 05/16/2025 [facility] Comment on above: Expected: 02/14/2025, Expires: Start: 02-14-2025 End: 05-16-2025 Hemoglobin A1c in Blood HEMOGLOBIN A1C Lab Routine Pre-op evaluation Type 2 diabetes mellitus without complication, without long-term current use of insulin (HCC) Expected: 02/14/2025, Expires: 05/16/2025 [facility] Work Phone: Comment on above: Expected: 02/14/2025, Expires: Start: 02-14-2025 End: 02-14-2025 Patient encounter procedure 02/14/2025 9:20 AM EDT Appointment Radiology [address] [place] [address] MRI BRAIN WO/W IVCON Radiology Comment on above: MRI BRAIN WO/W IVCON Start: 02-14-2025 End: 02-14-2025 ambulatory 02/14/2025 8:30 AM EDT Results Only [place] [facility] Laboratory [address] [place] [address] Labs [place] [facility] Laboratory Comment on above: Labs Start: 02-14-2025 End: 02-14-2025 Anesthesia consultation 02/14/2025 7:40 AM EDT PAT Pre Anesthesia [address] [place] [address] 2, Pacc [place] [address] [place] [address] PRE OP CLEARANCE Pre Anesthesia Comment on above: PRE OP CLEARANCE Start: 01-06-2025 End: 01-06-2025 ambulatory 01/06/2025 8:45 AM EDT [facility] [place] Neurology Headache [facility] [address] [place] [address] Rachele Fenton APRN.GENERAL SURGERY PHYSICIAN ASSISTANT [address] [place] [address] I want to stop taking my medicine Neurology Headache [facility] Comment on above: I want to stop taking my medicine Start: 12-28-2024 End: 12-28-2024 Patient encounter procedure 12/28/2024 9:20 AM EDT Office Visit Rheumatology [address] [place] [address] Zeinab Wood MD [address] [place] [address] 6 month follow up Rheumatology Comment on above: 6 month follow up Start: 12-27-2024 Plain X-ray of right wrist XR wrist RT min 3V* [facility] Start: 12-27-2024 XR Wrist - right GE 3 Views [facility] Start: 11-03-2024 Plain X-ray of left shoulder XR shoulder LT min 2V* [facility] Start: 11-03-2024 XR Shoulder - left Views [facility] Start: 09-14-2024 Medicare Advantage Annual Wellness Visit Medicare Advantage Annual Wellness Visit [facility] Start: 05-30-2024 End: 05-30-2024 Patient encounter procedure 05/30/2024 9:40 AM EDT Office Visit Rheumatology [address] [place] [address] Zeinab Wood MD [address] [place] [address] Return in about 8 months (around 05/29/2024) for arthralgias, FM . Rheumatology Comment on above: Return in about 8 months (around 05/29/20 24) for arthralgias, FM . Start: 05-15-2024 Covid-19 Vaccine ( season) Covid-19 Vaccine ( season) [facility] Start: 05-15-2024 Covid-19 Vaccine () Covid-19 Vaccine () [facility] Start: 05-15-2024 Influenza vaccination [facility] Start: 04-04-2024 End: 04-04-2024 Admission to same day surgery center 04/04/2024 7:30 AM EDT - 04/04/2024 2:30 PM EDT Surgery Admitting [address] [place] [address] Erik Pineda MD [address] [place] [address] ORBITOCRANIAL TO ANT CRAN FOSSA W/ SUPRAORB [...] AM EDT Hospital Encounter Admitting [address] [place] [address] Erik Pineda MD [address] [place] [address] Intracranial meningioma (HCC) [D32.0] Admitting Comment on above: Intracranial meningioma (HCC) [D32.0] Start: 03-22-2024 End: 03-22-2024 Patient encounter procedure Pre Anesthesia Comment on above: Preop, ORBITOCRANIAL TO ANT CRAN FOSSA W / SUPRAORB RIDGE OSTEOTOMY & ELEV FRONT&TEMP LOBE Preop lab and nasal swab Start: 03-04-2024 DIABETES SCREEN DIABETES SCREEN [facility] Start: 03-04-2024 Diabetes Screening Diabetes Screening [facility] Start: 02-05-2024 End: 02-05-2024 ambulatory 02/05/2024 7:00 AM EDT [facility] [place] [facility] Headache [facility] [address] [place] [address] Rachele Fenton, MARILEE.GENERAL SURGERY PHYSICIAN ASSISTANT [address] [place] [address] f/u Neurology Headache [facility] Comment on above: f/u Start: 01-29-2024 End: 01-29-2024 Patient encounter procedure [facility] Comment on above: R Sphenoid Wing Meningioma Start: 01-21-2024 End: 01-21-2024 ambulatory 01/21/2024 2:30 PM EDT [facility] [place] [address] [place] [address] Laron Lou DO, PhD [address] [place] [address] Check up for headaches [facility] [place] Comment on above: Check up for headaches Start: 09-14-2023 Behavioral Health Screening Behavioral Health Screening [facility] Start: 09-14-2023 Depression Assessment Depression Assessment [facility] Start: 05-15-2023 Covid-19 Vaccine () Covid-19 Vaccine () [facility] Start: 05-15-2023 Influenza vaccination [facility] Start: 2022 COLOGUARD (FIT-DNA) COLOGUARD (FIT-DNA) [facility] Start: 2022 Colonoscopy COLONOSCOPY [facility] Start: 2022 COLORECTAL CANCER SCREENING COLORECTAL CANCER SCREENING [facility] Start: [address] COLONOGRAPHY [facility] Start: 2022 FECAL OCCULT BLOOD FECAL OCCULT BLOOD [facility] Start: 2022 Lipid 1996 panel - Serum or Plasma Lipid Screening [facility] Start: 2022 Lipid panel Lipid Screening [facility] Start: 2022 LIPID SCREEN LIPID SCREEN [facility] Start: 2022 Screening for malignant neoplasm of colon [facility] Start: 2022 SIGMOIDOSCOPY SIGMOIDOSCOPY [facility] Start: 09-14-2022 DEPRESSION ASSESSMENT DEPRESSION ASSESSMENT [facility] Start: 05-06-2022 Plain X-ray of right wrist XR wrist RT min 3V* [facility] Start: 05-06-2022 End: 05-06-2022 Patient encounter procedure Departed [facility]-X[facility] [place] [facility] Start: 05-01-2022 End: 05-01-2022 Patient encounter procedure Departed [facility]-Lab [facility] [place] Start: 03-01-2022 Adult depression screening assessment DEPRESSION SCREENING [facility] Start: 07-04-2021 Urine microalbumin profile DTaP,Tdap,Td Vaccine (1 - Tdap) [facility] Start: 03-21-2021 COVID-19 VACCINE (3 - Booster for Pfizer series) COVID-19 VACCINE (3 - Booster for Pfizer series) [facility] Start: 03-21-2021 COVID-19 VACCINE (3 - Pfizer series) COVID-19 VACCINE (3 - Pfizer series) [facility] Start: 02-21-2021 COVID-19 VACCINE (3 - Pfizer risk 4-dose series) COVID-19 VACCINE (3 - Pfizer risk 4-dose series) [facility] Start: 02-21-2021 COVID-19 VACCINE (3 - Pfizer risk series) COVID-19 VACCINE (3 - Pfizer risk series) [facility] Start: 2017 Mammography [facility] Start: 2017 Screening for malignant neoplasm of breast [facility] Start: 2007 HPV TESTING HPV TESTING [facility] Start: 2007 Screening for malignant neoplasm of cervix [facility] Start: 1998 PAP TESTING PAP TESTING [facility] Start: 1998 Screening for malignant neoplasm of cervix [facility] Start: 1996 Hepatitis B Vaccine (1 of 3 - 19+ 3-dose series) Hepatitis B Vaccine (1 of 3 - 19+ 3-dose series) [facility] Start: 1996 Pneumococcal vaccination Pneumococcal Vaccine (1 of 2 - PCV) [facility] Start: 1996 SHINGRIX VACCINE (1 of 2) SHINGRIX VACCINE (1 of 2) [facility] Start: 1996 Urine microalbumin profile [facility] Start: 1995 Annual PCP Team Chronic Disease Visit Annual PCP Team Chronic Disease Visit [facility] Start: 1995 Anxiety Screening Anxiety Screening [facility] Start: 1995 Depression Screening Depression Screening [facility] Start: 1995 Hepatitis B surface antibody level LDL Cholesterol [facility] Start: 1987 Diabetic foot examination Diabetic Foot Exam [facility] Start: 1987 Glaucoma screening Dilated Retinal Exam [facility] Start: 1987 Hepatitis B screening Urine Albumin:Creatinine Ratio [facility] Start: 1983 PNEUMOCOCCAL (1 - PCV) PNEUMOCOCCAL (1 - PCV) [facility] Start: 1982 Hemoglobin A1c measurement HbA1C [facility] Start: 1977 HEPATITIS B (1 of 3 - 3-dose series) HEPATITIS B (1 of 3 - 3-dose series) [facility] Start: 1977 Hepatitis B Vaccine (1 of 3 - 3-dose series) Hepatitis B Vaccine (1 of 3 - 3-dose series) [facility] Start: 1977 Screening for malignant neoplasm of colon [facility] End: 09-06-2025 Alanine aminotransferase [Enzymatic activity/volume] in Serum or Plasma ALANINE AMINOTRANSFERASE / SGPT Lab Routine Inflammatory arthritis Every 3 months for 4 Occurrences starting 09/09/2024 until 09/06/2025 [facility] Comment on above: Every 3 months for 4 Occurrences startin g 09/09/2024 until 09/06/2025 End: 10-10-2025 Alanine aminotransferase [Enzymatic activity/volume] in Serum or Plasma ALANINE AMINOTRANSFERASE / SGPT Lab Routine Encounter for medication monitoring Every 3 months for 4 Occurrences starting 10/10/2024 until 10/10/2025 [facility] Comment on above: Every 3 months for 4 Occurrences startin g 10/10/2024 until 10/10/2025 End: 09-06-2025 Aspartate aminotransferase [Enzymatic activity/volume] in Serum or Plasma ASPARTATE AMINOTRANSFERASE/SGOT Lab Routine Inflammatory arthritis Every 3 months for 4 Occurrences starting 09/09/2024 until 09/06/2025 [facility] Work Phone: Comment on above: Every 3 months for 4 Occurrences startin g 09/09/2024 until 09/06/2025 End: 10-10-2025 Aspartate aminotransferase [Enzymatic activity/volume] in Serum or Plasma ASPARTATE AMINOTRANSFERASE/SGOT Lab Routine Encounter for medication monitoring Every 3 months for 4 Occurrences starting 10/10/2024 until 10/10/2025 [facility] Work Phone: Comment on above: Every 3 months for 4 Occurrences startin g 10/10/2024 until 10/10/2025 Bacteria identified in Urine by Culture Urine Culture [facility] End: 09-06-2025 C reactive protein [Mass/volume] in Serum or Plasma C-REACTIVE PROTEIN Lab Routine Inflammatory arthritis Every 3 months for 4 Occurrences starting 09/09/2024 until 09/06/2025 [facility] Comment on above: Every 3 months for 4 Occurrences startin g 09/09/2024 until 09/06/2025 End: 10-10-2025 C reactive protein [Mass/volume] in Serum or Plasma C-REACTIVE PROTEIN Lab Routine Encounter for medication monitoring Every 3 months for 4 Occurrences starting 10/10/2024 until 10/10/2025 [facility] Comment on above: Every 3 months for 4 Occurrences startin g 10/10/2024 until 10/10/2025 End: 09-06-2025 CBC panel - Blood by Automated count COMPLETE BLOOD COUNT Lab Routine Inflammatory arthritis Every 3 months for 4 Occurrences starting 09/09/2024 until 09/06/2025 [facility] Comment on above: Every 3 months for 4 Occurrences startin g 09/09/2024 until 09/06/2025 End: 10-10-2025 CBC panel - Blood by Automated count COMPLETE BLOOD COUNT Lab Routine Encounter for medication monitoring Every 3 months for 4 Occurrences starting 10/10/2024 until 10/10/2025 [facility] Comment on above: Every 3 months for 4 Occurrences startin g 10/10/2024 until 10/10/2025 End: 09-06-2025 Erythrocyte sedimentation rate SEDIMENTATION RATE, WESTERGREN Lab Routine Inflammatory arthritis Every 3 months for 4 Occurrences starting 09/09/2024 until 09/06/2025 [facility] Comment on above: Every 3 months for 4 Occurrences startin g 09/09/2024 until 09/06/2025 End: 10-10-2025 Erythrocyte sedimentation rate SEDIMENTATION RATE, WESTERGREN Lab Routine Encounter for medication monitoring Every 3 months for 4 Occurrences starting 10/10/2024 until 10/10/2025 [facility] Comment on above: Every 3 months for 4 Occurrences startin g 10/10/2024 until 10/10/2025 Insulin [Units/volum e] in Serum or Plasma [facility] Insulin [Units/volum e] in Serum or Plasma [facility] End: 04-01-2026 MR Brain WO and W contrast IV MRI BRAIN WO/W IVCON Radiology Routine Benign neoplasm of meninges (HCC) 1 Occurrences starting 03/02/2025 until 04/01/2026 [facility] Work Phone: Comment on above: 1 Occurrences starting 03/02/2025 until 04/01/2026 MR Skull base WO and W contrast IV MRI SKULL BASE WO/W IVCON Radiology Routine Benign neoplasm of meninges (HCC) 01/29/2024 1:56 PM EDT [facility] Work Phone: Patient Education Rib fracture o r bruised rib - ED discharge instructions [facility] Work Phone: Patient referral [facility] Work Phone: [facility] Immunizations Immunization Date Immunization Notes Care Provider Huseyin beard 06-29-2023 influenza virus vaccine, unspecified formulation [facility] Work Phone: [facility] 06-18-2022 Influenza, injectabl e, Madin [place]wood Canine Kidney, preservative free, quadrivalent Estevan Polanco NP Work Phone: [facility] 06-18-2022 influenza virus vaccine, unspecified formulation Fahad Corey MD Work Phone: [facility] 07-12-2021 influenza, injectabl e, quadrivalent, preservative free Estevan Polanco LYFT DRIVER Work Phone: [facility] 07-03-2021 tetanus and diphther ia toxoids, adsorbed, preservative free, for adult use (5 Lf of tetanus toxoid and 2 Lf of diphtheria toxoid) Estevan Polanco LYFT DRIVER Work Phone: [facility] 05-15-2021 Kenalog -40 mg Beti Neva rice Other [employer] Other 04-10-2021 Kenalog -40 mg Beti Neva rice Other [employer] [facility] Other 01-24-2021 COVID-19 mRNA Comirnatpiedad (Pfizer) MD Sammie Gonzalez Work Phone: [facility] 01-02-2021 COVID-19 mRNA Comirnatpiedad (Pfizer) MD Sammie Gonzalez Work Phone: [facility] 11-15-2020 Kenalog -40 mg Betimariella rice Other [employer] [facility] Other 07-04-2020 Influenza, injectabl e, Madin Fatimah Canine Kidney, preservative free, quadrivalent Estevan Polanco LYFT DRIVER Work Phone: [facility] 03-08-2020 Gel-Syn Beti Kearne y Other [employer] [facility] Other 03-01-2020 Gel-Syn Beti Kearne y Other [employer] [facility] Other 02-16-2020 Gel-Syn Beti Kearne y Other [employer] [facility] Other 01-26-2020 Kenalog -40 mg Beti Kear dwayne Other [employer] [facility] Other 02-02-2019 hepatitis A vaccine, adult dosage Estevan Polanco LYFT DRIVER Work Phone: [facility] 08-11-2017 Theraputic Injection Robert Bowles Other [employer] [facility] Other 08-04-2017 Theraputic Injection Shareefe r Jelena Other [facility] [employer] [facility] Other 07-07-2017 Kenalog -40 mg Beti Kear dwayne Other [employer] [facility] Other 06-23-2017 influenza virus vaccine, unspecified formulation Estevan Polanco LYFT DRIVER Work Phone: [facility] 04-09-2017 Kenalog -40 mg Beti Kear dwayne Other [employer] Other 12-11-2016 Kenalog -40 mg Beti Kear dwayne Other [employer] Other 09-29-2014 influenza, injectabl e, quadrivalent, contains preservative Beti Bowles Other [facility] 08-30-2014 influenza, injectabl e, quadrivalent, preservative free Estevan Polanco LYFT DRIVER Work Phone: [facility] Healthcare Payers Date Payer Category Payer Self-pay [id number] 2024 Medicare (Managed Care) [id number] 2024 Medicare [id number] 2024 Medicaid [id number] 2023 Medicaid [id number] 2023 Unknown 2009 Medicare MEDICARE MEDICAR E A AND B [id number] 2009-Present [phone] [place] [address] Medicare [id number] 2009 Medicare [id number] .[id number] 1977 Unknown [id number] 2.16.840.1.169735.3.579.2.5 93 1977 Unknown [id number] 2.16.840.1.470658.3.579.2.5 93 1977 Unknown [id number] 2.16.840.1.886101.3.579.2.1 259 1977 Unknown [id number] 2.16.840.1.449002.3.579.2.1 259 1977 Unknown [id number] 2.16.840.1.719688.3.579.2.7 16 1977 Unknown [id number] 2.16.840.1.512475.3.579.2.1 96 1977 Unknown [id number] 2.16.840.1.148268.3.579.2.1 96 1977 Unknown [id number] 2.16.840.1.665342.3.579.2.1 96 1977 Unknown [id number] 2.16.840.1.245569.3.579.2.1 96 1977 Unknown [id number] 2.16.840.1.936342.3.579.2.1 96 1977 Unknown [id number] 2.16.840.1.913292.3.579.2.1 1959 Medicare [id number] 2.16.840.1.454327.19 1959 Unknown [id number] Unknown HCAP/HFA/FAP Active [id number] Unknown [id number] 2.16.840.1.721415.3.579.2.5 31 Unknown [id number] 2.16.840.1.394430.3.579.2.5 31 Unknown [id number] 2.16.840.1.254761.3.579.2.5 31 Unknown [id number] 2.16.840.1.355423.3.579.2.5 31 Unknown [id number] 2.16.840.1.395854.3.579.2.5 31 Unknown [id number] 2.16.840.1.547430.3.579.2.5 31 Unknown [id number] 2.16.840.1.284049.3.579.2.5 31 Unknown [id number] 2.16.840.1.046123.3.579.2.5 31 Unknown [id number] 2.16.840.1.354586.3.579.2.5 31 Unknown [id number] 2.16.840.1.530990.3.579.2.5 31 Social History Date Type Detail Facility Start: 03-04-2021 End: 03-25-2023 Tobacco smoking status NHIS Ex-smoker [facility] Start: 03-04-2021 End: 02-14-2025 Tobacco use and exposure Smokeless tobacco non-user [facility] Start: 1975 Sex Assigned At Female [facility] Start: 01-10-2022 End: 01-20-2022 Exposure to SARS-CoV-2 (event) Not sure [facility] Start: 09-22-2022 End: 06-05-2025 Sex Assigned At [facility] History of tobacco use Current smoker [facility] Start: 09-22-2022 End: 06-05-2025 History of Social function [facility] Start: 08-15-2012 Adult Depression Screening Assessment 1 [facility] Start: 04-16-2018 Gender identity Identifies as female gender (finding) [facility] Start: 02-25-2021 Sexual orientation Heterosexual (fin ding) [facility] Start: 06-01-2023 End: 06-05-2025 Alcohol intake Current drinker of alcohol (finding) [facility] History of tobacco use Cigarette Smoker [facility] Start: 03-25-2023 Tobacco Comment >10 years sinc e last smoked [facility] Start: 03-25-2023 Alcohol Comment caffeine: stackers [facility] Start: 1975 Sex assigned at Not on file [facility] Start: 09-17-2024 End: 02-11-2025 Sex Female (finding) [facility] Start: 02-14-2025 Tobacco Comment Started 1994. Quit 2009. 1 ppd [facility] Start: 02-14-2025 Alcohol Comment 3-4 drinks on occasi on [facility] Start: 03-13-2025 End: 05-24-2025 Tobacco smoking status NHIS Unknown if ever smoked [facility] Start: 03-13-2025 Alcohol intake Alcohol Use Details E [facility] Start: 06-05-2025 Tobacco smoking status NHIS Never smoked tobacco (finding) [facility] NEGATED: Highlighted row N [facility] Medical Equipment Procedure Code Equipment Code Equipment Origin al Text Equipment Identifier Dates Start: 03-10-2023 Patch Duramatrix -Onlay Plus Collagen 2x2in Dural Regeneration Membrane - [id number] Start: 02-20-2025 Plate Bone 8 Hol e Profile - [id number] Start: 02-20-2025 Plate 3d Large B ox Low Profile Titanium Bone 2x2 Hole 1.5mm Screw - [id number] Start: 02-20-2025 Plate Low Profil e Titanium 12mm Bone 2 Hole Bar 1.5mm Screw Nonsterile - [id number] Start: 02-20-2025 Cover 10mm Mediu m Titanium Tippo Hole Low Profile Tab 1.5mm Screws - [id number] Start: 02-20-2025 Screw Bone Unive rsal Neuro 3 4mm 1.5mm Self Drill Axial Stability Latex - [id number] Start: 02-20-2025 [place] [facility] Neuro Screw Disc Pre-Loaded 1.5mm X 4mm [id number] Start: 02-20-2025 Clinical Notes 03-04-2021 to 06-06-2025 Telephone Encounter - Lamar Rose NP - 06/06/2025 9:25 AM EDTTelephone Encounter - Lamar Rose NP - 06/06/2025 9:25 AM EDT Note Date & Type Note Facility 06-06-2025 Telephone encount er Note Please notify patient that x ray final [...] deformities. No distinct acute displaced rib fracture. [facility] 06-06-2025 Miscellaneous Notes Formattin g of this note might be different from the original. Please notify patient that x ray final [...] displaced rib fracture. documented in this encounter [facility] 05-24-2025 Evaluation note Type assessment Encounter for Depo-Provera contr aception [facility] Work Phone: [phone]) 878-827409-09-2025 History of Present illness Narrative* Sharon Wilburn NP - 05/23/2025 1:20 PM EDT Images from the original note were not included. [address], [address] [facility], [address] P: [phone] F: [phone] HPI Historian of HPI: patient Kourtney Novak [...] (Toradol) injection 60 mg [id number] Telephone encounter Note* Telephone Encounter - Gifty Martinez - 05/18/2025 3:47 PM EDT Physician: Eliceo Call from pharmacy requesting refill. Please E-Scribe Last OV: with Hamdamarie Future OV: Not Scheduled. Requested Prescriptions Pending Prescriptions Disp Refills methocarbamol (ROBAXIN) 500 mg tablet [Pharmacy Med Name: METHOCARBAMOL 500 MG TABLET] 45 tablet 2 Sig: TAKE 1 TABLET BY MOUTH TWICE A DAY NEEDED Pharmacy Name: RIP Martinez [facility]09-04-2025 Miscellaneous Notes* Telephone Encounter - Gifty Martinez - 05/18/2025 3:47 PM EDT Physician: Eliceo Call from pharmacy requesting refill. Please E-Scribe Last OV: with Juan Luisdamarie Future OV: Not Scheduled. Requested Prescriptions Pending Prescriptions Disp Refills methocarbamol (ROBAXIN) 500 mg tablet [Pharmacy Med Name: METHOCARBAMOL 500 MG TABLET] 45 tablet 2 Sig: TAKE 1 TABLET BY MOUTH TWICE A DAY NEEDED Pharmacy Name: [facility] Telephone encounter Note * Telephone Encounter - La Nena Waterman LPN - 04/26/2025 9:34 AM EDT Eye exam was completed and received 12/20/2024. [facility]08-13-2025 Miscellaneous Notes* Telephone Encounter - La Nena Waterman LPN - 04/26/2025 9:34 AM EDT Eye exam was completed and received 12/20/2024. * Telephone Encounter - Zeinab Wood MD - 04/26/2025 8:38 AM EDT She needs an eye exam if she wants future refills. The following approved medication requests have been transmitted electronically. Requested Prescriptions Signed Prescriptions Disp Refills hydrOXYchloroQUINE (PLAQUENIL) 200 mg tablet 60 tablet 2 Sig: TAKE 1 TABLET BY MOUTH TWICE A DAY Authorizing Provider: ZEINAB WOOD MD * Telephone Encounter - Alisha Paniagua RN - 04/25/2025 9:15 AM EDT Images from the original note [...] Visit Type Date Time Department [facility] 2[facility] PM [facility] Last Ophthalmology Check for Plaquenil [...] months 10/10/25 10/10/24 02/14/25 Auth. provider: Zeinab oWod MD Assoc. diagnoses: Encounter for medication monitoring Open Future (Single Instance) Lab Orders None Last eye exam 12/20/24 documented in this encounterMer[facility]25 Telephone encounter Note * Telephone Encounter - Zeinab Wood MD - 04/26/2025 8:38 AM EDT She needs an eye exam if she wants future refills. The following approved medication requests have been transmitted electronically. Requested Prescriptions Signed Prescriptions Disp Refills hydrOXYchloroQUINE (PLAQUENIL) 200 mg tablet 60 tablet 2 Sig: TAKE 1 TABLET BY MOUTH TWICE A DAY Authorizing Provider: ZEINAB WOOD MD [facility]08-12-2025 Telephone encounter Note* Telephone Encounter - Alisha Paniagua, RN - 04/25/2025 9:15 AM EDT Images from the original note [...] Visit Type Date Time Department [facility] MEDICAL 06/22/2025 2:20 PM [facility] REJ Last Ophthalmology Check for Plaquenil [...] Zeianb Wood MD Assoc. diagnoses: Inflammatory arthritis SEDIMENTATION [...] for medication monitoring SEDIMENTATION RATE, WESTERGREN [SQWSR] 3/ Every 3 months 10/10/25 10/10/24 02/14/25 Auth. provider: Zeinab Wood MD Assoc. diagnoses: Encounter for medication monitoring C-REACTIVE PROTEIN [SQCRP] 3/ Every 3 months 10/10/25 10/10/24 02/14/25 Auth. provider: Zeinab Wood MD Assoc. diagnoses: Encounter for medication monitoring Open Future (Single Instance) Lab Orders None Last eye exam 12/20/24 [facility]07-30-2025 History of Present illness Narrative* Rachele Fenton APRN.GENERAL SURGERY PHYSICIAN ASSISTANT - 04/12/2025 7:00 AM EDT Headache Center [...] visit. Either the patient or their legal bilingual sales representative has been informed of the [...] Prescription for 10 mg nortriptyline sent to [facility], 2-month supply provided to accommodatetapering schedule. - [...] these with the patient: yes Rachele Fenton APRN.GENERAL SURGERY PHYSICIAN ASSISTANT HEADACHE SCORES: 02/01/2024 12/30/2024 04/10/2025 Headache Questions [...] tissue component identified in the orbit. Director Financial Services: GUANACO Transcribe Date/Time: Jan 31 2024 3:33P [...] articulation, and clear,coherent, and relevant. Short and watermelon inspector memory, cognition and general fund of knowledge [...] Service: Virtual Visit 20 minutes Recording using viseto software for draft documentation of the visit was discussed with the patient/authorized bilingual sales representative; all questions welcomed and answered. Patient/authorized bilingual sales representative agreed to proceed Rachele Fenton APRN.CNP Headache Section [facility] April 12, 2025 documented in this encounterMercy Health [facility]07-30-2025 NoteHNO ID: [id number] Author: RACHELE FENTON APRN.CNP Service: ? Author [...] visit. Either the patient or their legal bilingual sales representative has been informed of the [...] Prescription for 10 mg nortriptyline sent to [facility], 2-month supply provided to accommodate tapering [...] by mouth twice daily. (more content not included)...[facility]07-16-2025 History of Present illness Narrative* Erik Pineda MD - 03/29/2025 10:30 AM EDT Images from the original note were not included. SECTION OF SKULL BASE SURGERY MINIMALLY INVASIVE CRANIAL BASE & PITUITARY SURGERY PROGRAM [facility] [place] TELEMEDICINE FOLLOW-UP VISIT This is a virtual visit. It required patient-provider interaction for the medical decision making as documented below. Kourtney Novak has consented for this telemedicine encounter. I have communicated my name and active licensure. The patient's identity and physical location were verified at the time of this visit. Either the patient or their legal bilingual sales representative has been informed of the [...] intracranial meningioma; no recurrence of symptoms such asdiplopia or facial paresthesia. - Surgical site healing well; residual scab present, likely due to pressure from eyeglasses. - Advised continuation of gauze dressing until complete epithelialization occurs. - Discussed potential for hair regrowth along the incision line; some areas may remain alopecic dueto scarring. - Explained that residual edema and [...] meningioma, WHO grade 1 documented in this encounterMercy [facility] Hospital07-16-2025 NoteHNO ID: [id number] Author: ERIK PINEDA MD Service: ? Author Type: Physician Type: Progress Notes Filed: 03/29/2025 10:48 Note Text: SECTION OF SKULL BASE SURGERY MINIMALLY INVASIVE CRANIAL BASE AND PITUITARY SURGERY PROGRAM [facility] [place] TELEMEDICINE FOLLOW-UP VISIT This is a virtual visit. It required patient-provider interaction for the medical decision making as documented below. Kourtnye Novak has consented for this telemedicine encounter. I have communicated my name and active licensure. The patient's identity and physical location were verified at the time of this visit. Either the patient or their legal bilingual sales representative has been informed of the [...] (SYNTHROID) 50 mcg tablet (more content not included)...[facility]07-14-2025 Telephone encounter Note* Telephone Encounter - Chana Rose - 03/27/2025 9:35 AM EDT Hospital Discharge Summary faxed to Dr. Hoy. Saenz [facility]07-14-2025 Miscellaneous Notes* Telephone Encounter - Chana Rose - 03/27/2025 9:35 AM EDT Hospital Discharge Summary faxed to Dr. Hoy. 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 Wound is healing appropriately. Will complete the 10 days dose of Bactrim. Prescribed accordingly. [facility]07-07-2025 Miscellaneous Notes* Telephone Encounter - Izabela Patton MD - 03/20/2025 10:26 AM EDT Picture uploaded in Fluid-1 reviewed. Wound is healing appropriately. Will complete the 10 days dose of Bactrim. Prescribed accordingly. documented in this encounterMercy Health West Hospital07-02-2025 NoteHNO ID: [id number] Author: IZABELA PATTON MD Service: ? Author Type: Fellow Type: Progress Notes Filed: 03/15/2025 12:44 Note Text: SECTION OF SKULL BASE SURGERY MINIMALLY INVASIVE CRANIAL BASE AND PITUITARY SURGERY PROGRAM [facility] [place] CC: Patient Care Team: Sammie [...] changes. PLAN: - Send a picture in Fluid-1 on Thursday. - Bactrim DS x 5 [...] elevates symmetrically and uvul (more content not included)...[facility]07-02-2025 History of Present illness Narrative* Izabela Patton MD - 03/15/2025 12:31 PM EDT Images from the original note were not included. SECTION OF SKULL BASE SURGERY MINIMALLY INVASIVE CRANIAL BASE & PITUITARY SURGERY PROGRAM [facility] [place] CC: Patient Care Team: Sammie [...] changes. PLAN: - Send a picture in [employer] on Thursday. - Bactrim DS x 5 [...] REVIEW: Imaging: None for this visit. * Yuyl Do MA - 03/15/2025 12:02 PM EDT Additional intake questions: Has the patient had fever, nausea, vomiting, diarrhea, constipation, fatigue for > 1 week? No Does the patient have a decreased appetite? No Does patient want to see a Healthcare Administrator? No (yes to any of above refer patient to schedulers for dietitian appointment) ) Does patient have any new or increased numbness or tingling of extremities? No Is patient interested in fertility information? No Does patient need any prescription refills? No Does patient have an advanced directive in place? No, Patient referred to [facility] documented in this encounterMercy [facility]07-[facility]-2025 Telephone encounter Note * Telephone Encounter - Izabela Patton MD - 03/15/2025 12:17 PM EDT Ordered Bactrim. [facility]07-02-2025 Miscellaneous Notes* Telephone Encounter - Izabela Patton MD - 03/15/2025 12:17 PM EDT Ordered Bactrim. documented in this encounterMercy Health West Hospital07-02-2025 NoteHNO ID: [id number] Author: YULY DO MA Service: ? Author Type: Film Cutter Type: Progress Notes Filed: 03/15/2025 12:44 Note Text: Additional intake questions: Has the patient had fever, nausea, vomiting, diarrhea, constipation, fatigue for > 1 week? No Does the patient have a decreased appetite? No Does patient want to see a Healthcare Administrator? No (yes to any of above refer patient to schedulers for dietitian appointment) ) Does patient have any new or increased numbness or tingling of extremities? No Is patient interested in fertility information? No Does patient need any prescription refills? No Does patient have an advanced directive in place? No, Patient referred to [facility] Electronically Signed By: Yuly Do [facility] 03-13-2025 Telephone encounter Note* Telephone Encounter - [...] A DAY NEEDED Pharmacy Name: RIP Martinez [facility]06-30-2025 Miscellaneous Notes* Telephone Encounter - Gifty [...] Pharmacy Name: RIP [facility] documented in this encounterMercy Health [facility] Hospital06-30-2025 Evaluation note* Type Assessment Date assessment Encounter for [facility] Work Phone: [phone]) [phone] Telephone encounter Note* Telephone Encounter - Mario Alberto Phillips RN - 03/08/2025 4:18 PM EDT Images from the original note were not included. [facility]06-25-2025 Miscellaneous Notes* Telephone Encounter - Mario Alberto Phillips RN - 03/08/2025 4:18 PM EDT Images from the original note were not included. documented in this encounterMercy Health West Hospital06-23-2025 Telephone encounter Note * Telephone Encounter - Zeinab Wood MD - 03/06/2025 12:40 PM EDT The following approved medication requests have been transmitted electronically. Requested Prescriptions Pending Prescriptions Disp Refills DULoxetine (CYMBALTA) 60 mg capsule [Pharmacy Med Name: DULOXETINE HCL DR 60 MG CAP] 90 capsule 2 Sig: TAKE 1 CAPSULE BY MOUTH EVERY DAY Zeinab Wood MD [facility]06-23-2025 Miscellaneous Notes* Telephone Encounter - Zeinab [...] Visit Type Date Time Department [facility] 06/22/2025 2:20 PM [facility] REJ Last Ophthalmology Check for Plaquenil [...] meningioma (HCC), Preop testing documented in this encounterMercy Health West Hospital06-23-2025 NoteHNO ID: [id number] Author: MARIO ALBERTO PHILLIPS RN Service: ? [...] request and reach out to her through [employer] with a reply. Mario Alberto Phillips RN, Care CoordinatorK[facility]tering [facility]06-23-2025 History of Present illness Narrative* Mario Alberto [...] request and reach out to her through [employer] with a reply. Mario Alberto Phillips RN, Principal Embedded Software Engineer * Britton Tamez LPN - 03/06/2025 10:07 AM EDT Additional intake questions: Has the patient had fever, nausea, vomiting, diarrhea, constipation, fatigue for > 1 week? No Does the patient have a decreased appetite? No Does patient want to see a Healthcare Administrator? No (yes to any of above refer patient to schedulers for dietitian appointment) ) Does patient have any new or increased numbness or tingling of extremities? No Is patient interested in fertility information? NA Does patient need any prescription refills? No Does patient have an advanced directive in place? Yes, copies are in [facility] documented in this encounterMercy Health [facility] Hospital06-23-2025 Telephone encounter Note * Telephone Encounter [...] Visit Type Date Time Department [facility] MEDICAL 06/22/2025 2:20 PM [facility] REJ Last Ophthalmology Check for Plaquenil [...] Assoc. diagnoses: Intracranial meningioma (HCC), Preop testing [facility]06-23-2025 NoteHNO ID: [id number] Author: BRITTON TAMEZ LPN Service: ? Author Type: LICENSED NURSE Type: Progress Notes Filed: 03/06/2025 14:25 Note Text: Additional intake questions: Has the patient had fever, nausea, vomiting, diarrhea, constipation, fatigue for > 1 week? No Does the patient have a decreased appetite? No Does patient want to see a Healthcare Administrator? No (yes to any of above refer patient to schedulers for dietitian appointment) ) Does patient have any new or increased numbness or tingling of extremities? No Is patient interested in fertility information? NA Does patient need any prescription refills? No Does patient have an advanced directive in place? Yes, copies are in Epic Electronically Signed By: Britton [facility] History of Present illness Narrative* Heather Moy APRN.GENERAL SURGERY PHYSICIAN ASSISTANT - 03/02/2025 1:00 PM EDT Images from the original note were not included. [facility] [place] [facility] TELE-HEALTH VISIT PROGRESS NOTE This is a virtual visit using Fluid-1 video visit. It required patient-provider interaction for themedical decision making as documented below. I have communicated my name and active licensure. The patient's identity and physical location wereverified at the time of this visit. Either the patient or their legal bilingual sales representative has been informed of the [...] which included preparing to see the patient, [id number] patient care, completing clinical documentation, obtaining and/or reviewing separately obtained history, performing a medically appropriate examination, counseling and educating the pat ient/family/caregiver, ordering medications, tests, or procedures, communicating with other HCPs (not separately reported), independently interpreting results (not separately reported), communicatingresults to the patient/family/caregiver, and care coordination (not separately reported). Heather Moy APRN.GENERAL SURGERY PHYSICIAN ASSISTANT Certified Nurse Practitioner cc: Erik Pineda MD - [facility] HPI: Kourtney Novak is a pleasant is [...] resection. No residual mass or pathologic enhancement. Director Financial Services: PSCIliana Transcribe Date/Time: Feb 21 2025 11:17A Dictated [...] the tumor with antibodies to SSTR2a and DC was performed on block A1. The tumor [...] 2025 10:13 AM Gross examination performed at [facility], [address] [place] [address] Clinical History Pre-op diagnosis: Intracranial meningioma (HCC) [D32.0] Preop testing [Z01.818] Performing Lab Diagnostic interpretation performed at: [facility], [address] [place] [address], Desk [address]IA# [id number] Cryogenic Transport Driver: Charan Ryan MD Disclaimer Laboratory Developed Test (LDT) Disclaimer: Performance characteristics of immunohistochemical, immunofluorescent, and chromogenic in-situ hybridization tests have been determined by the performing laboratory within [facility]'garry [facility] Pathology and Laboratory Medicine Department ([facility], [facility], [facility], [facility], [facility], [facility], or [facility]) in a manner consistent with CLIA requirements. One or more of these tests may not have been cleared or approved by the FDA. [facility] is regulated under CLIA as qualified to perform high- complexity testing. These tests are used for clinical purposes. These should not be regarded asinvestigational or for research. Positive and negative controls stain appropriately. KPS: 90 documented in this encounterMercy Health West Hospital06-19-2025 NoteHNO ID: [id number] Author: HEATHER MOY APRN.CNP Service: ? Author Type: Nurse Practitioner Type: Progress Notes Filed: 03/02/2025 13:22 Note Text: [facility] TELE-HEALTH VISIT PROGRESS NOTE This is a virtual visit using Fluid-1 video visit. It required patient-provider interaction for the medical decision making as documented below. I have communicated my name and active licensure. The patient's identity and physical location were verified at the time of this visit. Either the patient or their legal bilingual sales representative has been informed of the [...] which included preparing to see the patient, [id number] patient care, completing clinical documentation, obtaining and/or [...] Practitioner cc: Erik Pineda MD - [facility] HPI: Kourtney Novak is a pleasant is [...] Face symmetric with smile (more content not included)...[facility]06-16-2025 Telephone encounter Note* Telephone Encounter - Zeinab [...] EVERY DAY Authorizing Provider: ZEINAB WOOD MD [facility]06-16-2025 Miscellaneous Notes* Telephone Encounter - Zeinba Wood MD - 02/27/2025 2:51 PM EDT [...] Visit Type Date Time Department [facility] 06/22/2025 2:20 PM [facility] REJ Last Ophthalmology Check for Plaquenil [...] meningioma (HCC), Preop testing documented in this encounterMercy [facility] Hospital06-13-2025 Telephone encounter Note * Telephone Encounter [...] Visit Type Date Time Department [facility] 06/22/2025 2:20 PM [facility] REJ Last Ophthalmology Check for Plaquenil [...] (HCC), Preop testing COMPLETE BLOOD COUNT [SQCBC] 0504/14/25 01/13/25 Auth. provider: Erik Pineda MD Assoc. diagnoses: Intracranial meningioma (HCC), Preop testing HCG, QUALITATIVE, URINE [SQUHCG] 01/13/25 04/14/25 01/13/25 Auth. provider: Erik Pineda MD Assoc. diagnoses: Intracranial meningioma (HCC), Preop testing [facility]06-12-2025 Telephone encounter Note* Telephone Encounter - [...] Reviewed med list and sent patient a Fluid-1 message for alternating Ibuprofen and Tylenol for headache/pain as needed Confirmed postop appointments Patient was made aware to reach out for questions/ concerns/updates. Mario Alberto Phillips RN, Principal Embedded Software Engineer [facility]06-12-2025 Telephone encounter Note* Telephone Encounter - Mario Alberto Phillips RN - 02/23/2025 11:24 AM EDT General Call Caller : Pt Contact Reason for Call : Pt has question regards oxycodone meds. Patient requesting return call ? Yes [facility]06-12-2025 Miscellaneous Notes* Telephone Encounter - Mario Alberto [...] Reviewed med list and sent patient a [employer] message for alternating Ibuprofen and Tylenol for headache/pain as needed Confirmed postop appointments Patient was made aware to reach out for questions/ concerns/updates. Mario Alberto Phillips RN, Principal Embedded Software Engineer * Telephone Encounter - Mario Alberto Phillips [...] return call ? Yes documented in this encounterMercy Health [facility] Hospital06-12-2025 Telephone encounter Note * Telephone Encounter - Kaci Maya - 02/23/2025 9:46 AM EDT General Call Caller : Pt Contact Reason for Call : Pt has question regards oxycodone meds. Patient requesting return call ? Yes [facility]06-11-2025 NoteHNO ID: [id number] Author: DAYANNA CLEMENTE, Mookie Service: Pharmacy Author Type: Tax Assistant Type: Plan of Care Filed: 02/22/2025 12:08 Note Text: PHARMACY BEDSIDE DELIVERY SERVICE Patient Name: Kourtney Novak The marked outpatient medications were Filled at: [facility] and delivered to the patient's bedside [...] glycopyrrolate 1 mg tablet Commonly known as: EMIINUL hydrOXYchloroQUINE 200 mg tablet Commonly known as: [...] Dayanna Clemente PAGER: February 22, 2025 10:56 [facility]06-11-2025 NoteHNO ID: [id number] Author: DAYANNA CLEMENTE ? Service: Pharmacy Author Type: Tax Assistant Type: Plan of Care Filed: 02/22/2025 10:56 Note Text: Insurance investigation completed Patient has active prescription insurance: Yes - Patient's insurance is in-network with [facility] Insurance loaded into [place]: Yes Test claim was completed to verify insurance is active: Successful Any questions, please reach out to your medication accessories repairer.[facility]06-10-2025 NoteHNO ID: [id number] Author: HERSON OZUNA RN Service: Nursing Author Type: Registered Nurse Type: Progress Notes Filed: 02/21/2025 20:22 Note Text: At 16:15 PM, Received report from [facility] [place]. At 17:00 PM, Patient transferred to the nursing division.[facility]06-10-2025 NoteHNO ID: [id number] Author: JOVANNY CHRISTENSEN RN Service: Care Management Author Type: Registered Nurse Type: Care Mgt Initial Assessment Filed: 02/21/2025 15:16 Note Text: CARE MANAGEMENT: ASSESSMENT AND DISCHARGE PLAN SERVICE DATE: February 21, 2025 SERVICE TIME: 3:14 PM PCP: Sammie Gonzalez MD Primary Contact: Extended Emergency Contact Information Primary Emergency Contact: Christiano Saini Address: [address] [place] Relation: Son Secondary Emergency Contact: Laith Saini Address: [address] Mobile Relation: Son Admission Status: Inpatient Insurance Provider: [facility] Discharge Planning requested by: Per Department Practice Potential Transition Plans Home Advance Directives Current Advance Directive: None [place] Explained: [place] Given: No Reason Not Given: [...] Novak DATE: February 21, 2025 TIME: 3:14 [facility]06-10-2025 NoteHNO ID: [id number] Author: GLORIA PEÑALOZA PA-C Service: Neurosurgery Author Type: Physician Transaction Manager Type: Progress Notes Filed: 02/21/2025 12:40 Note Text: SERVICE DATE: 02/21/2025 SERVICE TIME: 8:19 AM NEUROSURGERY SKULL BASE INPATIENT PROGRESS NOTE Please [place] [phone] for questions/concerns about this patient from 3PM [...] Non-tender NEUROLOGY: Motor: UE BICEPS TRICEPS DELTS Manager Strategy & Account HI R 5/5 5/5 5/5 5/5 5/5 [...] 18 Gauge 1 day Peripheral 02/20/25 1245 [facility] Short Right Hand 18 Gauge <1 day Drain Duration Indwelling Urinary Catheter 02/20/25 1301 [facility] Nieves 16 Fr <1 day LABS: Na: Recent Labs 02/21/25 0437 02/20/25 1143 NA 138 137 1. Out of bed and ambulating: No Needs PT or OT Evaluation: No 2. Central line present? No 3. Continued need for urinary catheter? D/C Urinary Catheter 4. Nutrition: PO- Yes. 5. Restraints No. 6. 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 Assessment AND Plan Active Hospital Problems as [...] treating with decadron 8bid (SSI, PPI) with assisted taper plan off over 1 week At risk for seizures 02/21/2025 - Pre (more content not included)...[facility]06-10-2025 NoteHNO ID: [id number] Author: ERIK PINEDA MD Service: Neurosurgery Author [...] Erik Pineda MD Date: 02/21/2025 Time: 9:02 [facility]06-09-2025 NoteHNO ID: [id number] Author: TWYLA COOLEY MD Service: Neurosurgery Author [...] Pineda Signature: Twyla Cooley MD PGY4, Neurosurgery [facility] On-call pager: [phone]06-09-2025 NoteHNO ID: [id number] Author: PAULINO RAMACHANDRAN DO Service: ? Author [...] February 20, 2025 TIME: 2:16 PM CSN: [id number] Nelsonville [facility]06-09-2025 NoteHNO ID: [id number] Author: CLARISA GARZA MD Service: ? Author [...] Successful intubation technique: video laryngoscopy Devices used: [employer] Endotracheal tube insertion site: oral Blade: Cora [...] February 20, 2025 TIME: 2:00 PM CSN: [id number] Nelsonville [facility]06-06-2025 Telephone encounter Note* Telephone Encounter - Mario Alberto Phillips RN - 02/17/2025 3:53 PM EDT Spoke with the patient - we discusses signing the consent after she checks in for her surgery on Thursday02/20/25. [facility]06-06-2025 Miscellaneous Notes* Telephone Encounter - Mario Alberto Phillips RN - 02/17/2025 3:53 PM EDT Spoke with the patient - we discusses signing the consent after she checks in for her surgery on Thursday02/20/25. documented in this encounterMercy Health West Hospital06-06-2025 Telephone encounter Note * Telephone Encounter - Mario Alberto Phillips RN - 02/17/2025 3:49 PM EDT Called the patient for pre-op instructions. Questions pertaining to hospital stay and after hospital discharge instructions were addressed. Shewas made aware to touch base after she gets discharged home for review of hospital discharge instructions and confirming postop follow up appts. Mario Alberto Phillips RN, Principal Embedded Software Engineer [facility]06-06-2025 Miscellaneous Notes* Telephone Encounter - Mario Alberto Phillips RN - 02/17/2025 3:49 PM EDT Called the patient for pre-op instructions. Questions pertaining to hospital stay and after hospital discharge instructions were addressed. Shewas made aware to touch base after she gets discharged home for review of hospital discharge instructions and confirming postop follow up appts. Mario Alberto Phillips RN, Principal Embedded Software Engineer documented in this encounterMercy Health West Hospital06-04-2025 History of Present illness Narrative* Erik Pineda MD - 02/15/2025 2:30 PM EDT SECTION OF SKULL BASE SURGERY MINIMALLY INVASIVE CRANIAL BASE & PITUITARY SURGERY PROGRAM [facility] [place] TELEMEDICINE FOLLOW-UP VISIT This is a virtual visit. It required patient-provider interaction for the medical decision making as documented below. Kourtney Novak has consented for this telemedicine encounter. I have communicated my name and active licensure. The patient's identity and physical location were verified at the time of this visit. Either the patient or their legal bilingual sales representative has been informed of the [...] week postoperatively. - Consent form sent via Fluid-1, including consent for blood transfusion if necessary. - Patient understands and agrees with the treatment plan. I spent a total of 30 minutes on the date of the service which included preparing to see the patient, czuz-nw-rtdo patient care, completing clinical documentation, performing a [...] DATE OF EXAM: Feb 14 2025 10:37AM [facility] 0295 - MRI BRAIN WO/W IVCON / [...] tissue mass extending into the of the spa manager/esthetician or parapharyngeal spaces. The soft tissue planes of the, retropharyngeal, and prevertebral spaces are maintained. The visualized parotid glands are normal in appearance. Nasopharynx/Oropharynx: The nasopharynx and oropharynx are normal in appearance. 12/28/24 OPTH Exam ( see scanned) documented in this encounterMercy Health West Hospital06-04-2025 NoteHNO ID: [id number] Author: ERIK PINEDA MD Service: ? Author Type: Physician Type: Progress Notes Filed: 02/15/2025 14:59 Note Text: SECTION OF SKULL BASE SURGERY MINIMALLY INVASIVE CRANIAL BASE AND PITUITARY SURGERY PROGRAM [facility] [place] TELEMEDICINE FOLLOW-UP VISIT This is a virtual visit. It required patient-provider interaction for the medical decision making as documented below. Kourtney Novak has consented for this telemedicine encounter. I have communicated my name and active licensure. The patient's identity and physical location were verified at the time of this visit. Either the patient or their legal bilingual sales representative has been informed of the [...] week postoperatively. - Consent form sent via Fluid-1, including consent for blood transfusion if necessary. - Patient understands and agrees with the treatment plan. I spent a total of 30 minutes on the date of the service which included preparing to see the patient, btnd-wr-wrre patient care, completing clinical documentation, performing a [...] daily. No current facility-administered (more content not included)...[facility]06-04-2025 Telephone encounter Note* Telephone Encounter - Barbara Rosenthal LPN - 02/15/2025 8:21 AM EDT I called and spoke with patient. Relayed below message; denies questions at this time. Will go to [facility]. Barbara Rosenthal LPN February 15, 2025 8:22 AM [facility]06-04-2025 Miscellaneous Notes* Telephone Encounter - Barbara [...] BMP. Please have her go to closest [facility] lab tohave them drawn. She can go to [facility] in [place] if that is best for her thank you. Thank you, Mehul Martin APRN.CNP documented in this encounterMercy Health West Hospital06-04-2025 Telephone encounter Note * Telephone Encounter - Mehul Martin APRN.JOSSIE - 02/15/2025 8:09 AM EDT Please call patient. Lab did not draw [place], A1C, or BMP. Please have her go to [facility] lab tohave them drawn. She can go to [facility] in [place] if that is best for her thank you. Thank you, Mehul Martin APRN.GENERAL SURGERY PHYSICIAN ASSISTANT [facility]06-03-2025 History of Present illness Narrative* Jace [...] PATIENT PRESENTS WITH AN IMPLANTABLE OR ATTACHED UTILITY SYSTEMS REPAIRER OPERATOR: No RADIOLOGY DEPARTMENT: MR; Exam(s) Completed: Head: Routine Brain Localization PERIPHERAL IV DATA: Site assessment: Clean,Dry and Intact, Site disposition Discontinued SIGNED BY: RT Alma(R) February 14, 2025 9:16 AM documented in this encounterMercy Health West Hospital06-03-2025 NoteHNO ID: [id number] Author: JACE LAINEZ RT(R) Service: ? Author [...] PATIENT PRESENTS WITH AN IMPLANTABLE OR ATTACHED UTILITY SYSTEMS REPAIRER OPERATOR: No RADIOLOGY DEPARTMENT: MR; Exam(s) Completed: Head: Routine Brain Localization PERIPHERAL IV DATA: Site assessment: Clean,Dry and Intact, Site disposition Discontinued SIGNED BY: RT Alma(Lc) February 14, 2025 9:16 [facility]06-03-2025 History and physical note* Mehul Martin APRN.GENERAL SURGERY PHYSICIAN ASSISTANT - 02/14/2025 7:40 AM EDT HISTORY AND [...] [facility] COPD (chronic obstructive pulmonary disease) ([facility]) Assessment: Stable with nebulizer treatments Denies any SOB Denies any Home oxygen use Lungs clear on exam SpO2 in office today 96% Monitored by PCP MAREK (obstructive sleep apnea) Assessment: Does not use CPAP Mixed hyperlipidemia Assessment: Compliant with Statin GERD (gastroesophageal reflux disease) Assessment: Controlled with dexilant Hypothyroidism Assessment: Controlled with levothyroxine Diabetes mellitus ([facility]) Assessment: Complaint with oral medications -A1C ordered [...] of breath with the above physical activity. [id number] Score: Age: <65 Sex: female CHF history: No Hypertension history: No Stroke/TIA/thromboembolism history: No Vascular disease history: No Diabetes history: Yes [id number] Score: 2 ARISCAT Score: Age: <=50 Preoperative [...] Negative for dysuria, incontinence, hematuria, and hesitancy ELECTROLYTIC ETCHER: Negative for abnormal vaginal bleeding, abnormal vaginal [...] 386 QTC Calculation (Bazett) 436 Calculated P [place] 36 Calculated R [place] 47 Calculated T [place] 47 Impression NORMAL SINUS RHYTHM NORMAL ECG Instructions Given to Patient: Instructions located in the after visit summary. Patient given verbal and written preop instructions and voices comprehension and compliance. SIGNATURE: Mehul Martin APRN.CNP PATIENT NAME: Kourtney Novak DATE: 02/14/2025 TIME: 7:58 AM [facility]06-03-2025 History and physical note* Mehul Martin [...] [facility] COPD (chronic obstructive pulmonary disease) ([facility]) Assessment: Stable with nebulizer treatments Denies any SOB Denies any Home oxygen use Lungs clear on exam SpO2 in office today 96% Monitored by PCP MAREK (obstructive sleep apnea) Assessment: Does not use CPAP Mixed hyperlipidemia Assessment: Compliant with Statin GERD (gastroesophageal reflux disease) Assessment: Controlled with dexilant Hypothyroidism Assessment: Controlled with levothyroxine Diabetes mellitus ([facility]) Assessment: Complaint with oral medications -A1C ordered [...] of breath with the above physical activity. [id number] Score: Age: <65 Sex: female CHF history: No Hypertension history: No Stroke/TIA/thromboembolism history: No Vascular disease history: No Diabetes history: Yes [id number] Score: 2 ARISCAT Score: Age: <=50 Preoperative [...] original vaccine, age 12+ yr, monovalent (PFIZER- [employer] Power system - PURPLE TOP) 01/02/2021 Imm Admin: COVID-19 [...] Negative for dysuria, incontinence, hematuria, and hesitancy ELECTROLYTIC ETCHER: Negative for abnormal vaginal bleeding, abnormal vaginal [...] 386 QTC Calculation (Bazett) 436 Calculated P [place] 36 Calculated R [place] 47 Calculated T [place] 47 Impression NORMAL SINUS RHYTHM NORMAL ECG Instructions Given to Patient: Instructions located in the after visit summary. Patient given verbal and written preop instructions and voices comprehension and compliance. SIGNATURE: Mehul Martin APRN.CNP PATIENT NAME: Kourtney Novak DATE: 02/14/2025 TIME: 7:58 AM documented in this encounterMercy Health West Hospital06-02-2025 Instructions* Patient Instructions* Mehul Martin APRN.CNP - 02/13/2025 11:26 AM EDT PATIENT PREOPERATIVE INSTRUCTIONS You Surgeon has scheduled you for your procedure at this surgery center: [facility] [place] Scheduling Office: [phone] --[address] [place] [address]. Please read below carefully for your personalized [...] SURGERY If you are currently using a rriv-xle-ojtg injectable or oral medication for diabetes or [...] Procedures: - YOU MUST HAVE A RESPONSIBLE ELECTRICAL PLUMBING SUPERVISOR TAKE YOU HOME. A WRITER TECHNICAL PUBLICATIONS OR SEAM FINISHER CANNOT BE MADE A RESPONSIBLE ELECTRICAL PLUMBING SUPERVISOR. - We recommend that a responsible person [...] call the Thursday before. Your surgeon s lvn lpn will tell you what time to call the office. - If you have not reached the departmental lvn lpn by 5 P.M., call [phone] after 5 P.M. the day before your surgery. Please be aware that emergency situations arise, which may delay or change your surgical time. If this happens, we will notify you as soon as possible and regret any inconvenience. If you already have an Advance Directive, please fax a copy to [phone] or email to for it to be [...] day. Mehul Martin APRN.JOSSIE documented in this encounterMercy Health West Hospital05-30-2025 Radiology [facility] [place] [id number] Ultrasound Report Signed Patient: Kourtney Novak MR#: [id number] : 1975 Acct:[id number] Age/Sex: 49 / F ADM Date: 5 Loc: Room: Type: [facility] Attending Dr: Sammie Gonzalez MD Ordering [...] Gray M.D. 02/10/2025 4:44 PM Dictation Location: [place] [address] Tech: Vani Baker Transcribed By: [facility] 02/10/25 1644 Dictated By: George Gray DO 02/10/25 1643 Signed By: 02/10/25 1644 [facility]05-15-2025 Telephone encounter Note* Telephone Encounter - Gifty [...] WEEK THEN STOP Pharmacy Name: [facility]05-15-2025 Miscellaneous Notes* Telephone Encounter - Gifty [...] Pharmacy Name: [facility] documented in this encounterMercy Health West Hospital04-25-2025 NoteHNO ID: [id number] Author: RACHELE FENTON APRN.JOSSIE Service: ? Author [...] visit. Either the patient or their legal bilingual sales representative has been informed of the [...] 15 mg tablet simvastatin (more content not included)...[facility]04-24-2025 NoteHNO ID: [id number] Author: LA NENA WATERMAN LPN Service: ? Author Type: LICENSED NURSE Type: Progress Notes Filed: 01/05/2025 12:51 Note Text: Eye exam for Plaquenil toxicity received from [facility]. Exam date was 12/20/2024. Exam shows no signs of Plaquenil toxicity. Forms sent for scanning.[facility]04-17-2025 Telephone encounter Note* Telephone Encounter - Gifty [...] A DAY NEEDED Pharmacy Name: [facility]04-17-2025 Miscellaneous Notes* Telephone Encounter - Gifty [...] Pharmacy Name: [facility] documented in this encounterMercy Health West Hospital04-16-2025 NoteHNO ID: [id number] Author: ZEINAB WOOD MD Service: ? Author [...] extremities. GI: Bowel sound (more content not included)...[facility] 12-28-2024 History of Present illness Narrative* Zeinab [...] No Swollen Glands: No documented in this encounterMercy Health West Hospital04-15-2025 Evaluation note* Diagnosis Onset Date Resolution Status Admit Date Osteochondrosis of lunate of right wrist acute December 27, 2024 12:51pm Right wrist pain acute December 272024 12:51pm Osteochondrosis of lunate of right wrist acute February 01, 2025 1 :57pm Right wrist pain acute January 1:57pm [facility] Work Phone: 1(354) 480-908704-15-2025 Evaluation note* Diagnosis Onset Date Resolution Status [...] wrist pain acute March 3:55pm [facility] Work Phone: 1(549) 180-143703-24-2025 Telephone encounter Note* Telephone Encounter - Mario [...] out for questions/concerns/updates. Mario Alberto Phillips RN, Principal Embedded Software Engineer [facility]03-24-2025 Miscellaneous Notes* Telephone Encounter - Mario [...] out for questions/concerns/updates. Mario Alberto Phillips RN, Principal Embedded Software Engineer * Telephone Encounter - Mario Alberto Phillips RN - 12/05/2024 10:04 AM EDT Left a detailed voice message for the patient requesting a call back to discuss her plan of care & scheduling surgery. Contact info provided. documented in this encounterMercy Health West Hospital03-24-2025 Telephone encounter Note * Telephone Encounter - Mario Alberto Phillips RN - 12/05/2024 10:04 AM EDT Left a detailed voice message for the patient requesting a call back to discuss her plan of care & scheduling surgery. Contact info provided. [facility]02-20-2025 Evaluation note* Diagnosis Onset Date Resolution Status Admit Date Bursitis of left shoulder acute November 03, 2024 9:12am Osteochondrosis of lunate of right wrist acute December 27, 2024 12:51pm Right wrist pain acute December 272024 12:51pm [facility] Work Phone: 1(640) 817-171801-27-2025 Telephone encounter Note* Telephone Encounter - Susy Escamilla LPN - 10/10/2024 4:59 PM EST Faxed new order with updated diagnosis code . sent to [phone]. [facility]01-27-2025 Miscellaneous Notes* Telephone Encounter - Susy Escamilla LPN - 10/10/2024 4:59 PM EST Faxed new order with updated diagnosis code . sent to [phone]. * Telephone Encounter - Susy Escamilla LPN - 10/10/2024 3:27 PM EST Received fax from [facility]. States that diagnosis code M19.9 ( inflammatory arthritis ) does not pass medical necessity for the 22388 regarding CBC test. They needs a different order to be placed with another diagnosis code. Please fax to Jimbo Whitten at [phone]. Notice sent to scanning . Please route to [facility] nurse for follow up documented in this encounterMercy Health West Hospital01-27-2025 Telephone encounter Note * Telephone Encounter [...] equal 90mg po qd Zeinab Wood MD [facility]01-27-2025 Miscellaneous Notes* Telephone Encounter - Zeinab [...] Zeinab Wood MD * Telephone Encounter - Guevara La NenaMARY ELLEN - 10/10/2024 2:50 PM EST Most recent [...] Days Visit Type Date Time Department [facility] 12/28/2024 9:20 AM [facility] REJ Last Ophthalmology Check for Plaquenil [...] Instance) Lab Orders None documented in this encounterMercy Health West Hospital01-27-2025 Telephone encounter Note * Telephone Encounter - Susy Escamilla LPN - 10/10/2024 3:27 PM EST Received fax from [facility]. States that diagnosis code M19.9 ( inflammatory arthritis ) does not pass medical necessity for the 57415 regarding CBC test. They needs a different order to be placed with another diagnosis code. Please fax to Jimbo Whitten at [phone]. Notice sent to scanning . Please route to [facility] nurse for follow up [facility]01-27-2025 Telephone encounter Note* Telephone Encounter - [...] Days Visit Type Date Time Department [facility] 12/28/2024 9:20 AM [facility] REJ Last Ophthalmology Check for Plaquenil [...] Open Future (Single Instance) Lab Orders None [facility]01-14-2025 Evaluation note* Diagnosis Onset Date Resolution Status Admit Date Osteochondrosis of lunate of right wrist acute September 27 2:48pm Right wrist pain acute September 27, 2024 2:48pm Bursitis of left shoulder acute November 03, 2024 9:12am [facility] Work Phone: 1(686) 360-749501-07-2025 Telephone encounter Note* Telephone Encounter - Susy Escamilla LPN - 09/20/2024 5:15 PM EST Lab results received from [facility] . Copy sent to scan, copy sent to provider folder for review. . [facility]01-07-2025 Miscellaneous Notes* Telephone Encounter - Susy Escamilla LPN - 09/20/2024 5:15 PM EST Lab results received from [facility] . Copy sent to scan, copy sent to provider folder for review. . documented in this encounterMercy Health West Hospital01-02-2025 Telephone encounter Note * Telephone Encounter - Susy Escamilla LPN - 09/15/2024 3:42 PM EST Lab orders faxed to [phone]. Patient updated via [employer] [facility]01-02-2025 Miscellaneous Notes* Telephone Encounter - Susy Escamilla LPN - 09/15/2024 3:42 PM EST Lab orders faxed to [phone]. Patient updated via [employer] * Telephone Encounter - Zeinab Wood MD - 09/15/2024 2:04 PM EST Please send lab orders to where patient would like. [facility] call patient to discuss. Zeinab Wood MD documented in this encounterMercy Health West Hospital01-02-2025 Telephone encounter Note * Telephone Encounter - Zeinab Wood MD - 09/15/2024 2:04 PM EST Please send lab orders to where patient would like. [facility] call patient to discuss. Zeinab Wood MD [facility]12-27-2024 Telephone encounter Note* Telephone Encounter - [...] EVERY DAY Authorizing Provider: ZEINAB WOOD MD [facility]12-27-2024 Telephone encounter Note* Telephone Encounter - [...] EVERY DAY Authorizing Provider: ZEINAB WOOD MD [facility]12-27-2024 Miscellaneous Notes* Telephone Encounter - Zeinab [...] if labs are appropriate. Route to [facility] Nurse in order to follow up with faxing Lab orders to [facility] [phone] . * Telephone Encounter - Alisha Paniagua [...] Visit Type Date Time Department [facility] 12/28/2024 9:20 AM [facility] REJ Last Ophthalmology Check for Plaquenil [...] Instance) Lab Orders None documented in this encounterMercy Health West Hospital12-24-2024 Telephone encounter Note * Telephone Encounter - Susy Escamilla LPN - 09/06/2024 11:11 AM EST No current labs ordered . Please advise if labs are appropriate. Route to [facility] Nurse in order to follow up with faxing Lab orders to [facility] [phone] . [facility]12-19-2024 Telephone encounter Note* Telephone Encounter - Alisha Paniagua RN - 09/01/2024 5:10 PM EST Please monitor for receipt of labs. No labs completed presently. [facility]12-18-2024 Telephone encounter Note* Telephone Encounter - Zeinab Wood MD - 08/31/2024 4:25 PM EST She needs labs before I can give her refill. Labs in epic. Zeinab Wood MD [facility]12-16-2024 Telephone encounter Note* Telephone Encounter - [...] Days Visit Type Date Time Department [facility] 12/28/2024 9:20 AM [facility] REJ Last Ophthalmology Check for Plaquenil [...] Open Future (Single Instance) Lab Orders None [facility]10-30-2024 History of Present illness Narrative* Estevan [...] 20 tablet; Refill: 0 documented in this encounterMetropolitan Saint Louis Psychiatric [id number] NoteHNO ID: [id number] Author: ZEINAB WOOD MD Service: ? Author [...] recent and remote event (more content not included)...[facility]09-16-2024 History of Present illness Narrative* Zeinab Wood [...] No Swollen Glands: No documented in this encounterMercy Health West Hospital09-12-2024 Telephone encounter Note * Telephone Encounter - Eun Stanford APRN.[facility] - 05/26/2024 10:59 AM EDT The following approved medication requests have been transmitted electronically. Requested Prescriptions Signed Prescriptions Disp Refills methocarbamol (ROBAXIN) 500 mg tablet 45 tablet 2 Sig: Take 1 tablet by mouth two times a day as needed. Authorizing Provider: EUN STANFORD APRN.CNP [facility]09-12-2024 Miscellaneous Notes* Telephone Encounter - Eun [...] Pharmacy Name: [facility] documented in this encounterMercy Health West Hospital09-12-2024 Telephone encounter Note * Telephone Encounter - Tala Summers - 05/26/2024 10:14 AM EDT Physician: Eliceo Call from patient requesting refill. Please E-Scribe Last office visit 02/05/24 with Eliceo sanchez Next office visit N/A Patient Comment: My [...] a day as needed. Pharmacy Name: [facility]07-12-2024 Telephone encounter Note* Telephone Encounter - Zeinab Wood MD - 03/25/2024 12:32 PM EDT The following approved medication requests have been transmitted electronically. Requested Prescriptions Pending Prescriptions Disp Refills predniSONE (DELTASONE) 5 mg tablet [Pharmacy Med Name: prednisone 5 mg tablet] 60 tablet 3 Sig: TAKE 1 TO 2 TABLETS BY MOUTH EVERY DAY Zeinab Wood MD [facility]07-12-2024 Miscellaneous Notes* Telephone Encounter - Zeinab [...] Visit Type Date Time Department [facility] 05/30/2024 9:40 AM [facility] RE[facility] Last Ophthalmology Check for Plaquenil [...] (HCC), Preop testing TYPE AND SCREEN,30 DAY [[id number]] 02/03/24 05/04/24 02/03/24 Auth. provider: Erik Pineda MD Assoc. diagnoses: Intracranial meningioma (HCC), Preop testing documented in this encounterMer[facility]07-[facility]24 Telephone encounter Note * Telephone Encounter [...] Days Visit Type Date Time Department [facility] 05/30/2024 9:40 AM [facility] Last Ophthalmology Check for Plaquenil [...] (HCC), Preop testing TYPE AND SCREEN,30 DAY [[id number]] 02/03/24 05/04/24 02/03/24 Auth. provider: Erik Pineda MD Assoc. diagnoses: Intracranial meningioma (HCC), Preop testing [facility]07-10-2024 Telephone encounter Note* Telephone Encounter - Emma Vargas - 03/23/2024 2:05 PM EDT Patient last seen 02/05/2024. [facility]07-10-2024 Miscellaneous Notes* Telephone Encounter - Emma Vargas - 03/23/2024 2:05 PM EDT Patient last seen 02/05/2024. documented in this encounterMercy Health [facility] Hospital06-25-2024 Telephone encounter Note * Telephone Encounter - Mario Alberto Phillips RN - 03/08/2024 2:39 PM EDT ADDENDUM: March 08, 2024 2:39 PM Distance Health Visit on 02/02/2024 including the details for the patient's surgery was faxed to Moira DONOVAN ( [facility]) . Mario Alberto Phillips RN, Principal Embedded Software Engineer [facility]06-25-2024 Miscellaneous Notes* Telephone Encounter - Mario Alberto Phillips RN - 03/08/2024 2:39 PM EDT ADDENDUM: March 08, 2024 2:39 PM Distance Health Visit on 02/02/2024 including the details for the patient's surgery was faxed to Moira DONOVAN ( [facility]) . Mario Alberto Phillips RN, Principal Embedded Software Engineer * Telephone Encounter - Mario Alberto Phillips RN - 03/08/2024 2:17 PM EDT Spoke with nurse Pizarro. We discussed that the patient's epidural steroid injection on 03/14/2024 for her neck pain (C7/T1) isfar out from her surgery for the craniotomy with Dr Erik Pineda (04/04/24). Mario Alberto Phillips RN, Principal Embedded Software Engineer * Telephone Encounter - Brain Ruth - 03/08/2024 1:46 PM EDT General Call Caller : Moira harrison at [facility] Contact Reason for Call : Nurse would like to confirm that pt is allowed to receive steroid injection priorto surgery-80mg of kenalog Patient requesting return call ? Yes documented in this encounterMercy Health [facility] Hospital06-25-2024 Telephone encounter Note * Telephone Encounter - Mario Alberto Phillips RN - 03/08/2024 2:17 PM EDT Spoke with nurse Pizarro. We discussed that the patient's epidural steroid injection on 03/14/2024 for her neck pain (C7/T1) isfar out from her surgery for the craniotomy with Dr Erik Pineda (04/04/24). Mario Alberto Phillips RN, Principal Embedded Software Engineer [facility]06-25-2024 Telephone encounter Note* Telephone Encounter - Brain Ruth - 03/08/2024 1:46 PM EDT General Call Caller : Moira harrison at [facility] Contact Reason for Call : Nurse would like to confirm that pt is allowed to receive steroid injection priorto surgery-80mg of kenalog Patient requesting return call ? Yes [facility]05-29-2024 Telephone encounter Note* Telephone Encounter - [place] Gifty Rea - 02/10/2024 3:12 PM EDT Images from the original note were not included. Prior Authorization for Medications Requested by (Fluid-1, Pharmacy, Patient Call, Fax) : [facility] Name: [facility] Phone # : [phone] Name of Medication : Robaxin Dose : 500 mg Tablet If renewal, auth date expiration: NA Prescribing Provider: Eliceo Last OV: 02/05/2024 with Hamdamarie Insurance Provider : Medicare / [employer]. Is insurance card scanned in, including Rx info? Medicare card scanned - no RX information Insurance Phone : [employer]eds [place]: NA E-PA? Yes [facility]05-29-2024 Miscellaneous Notes* Telephone Encounter - [place] Gifty Rea - 02/10/2024 3:12 PM EDT Images from the original note were not included. Prior Authorization for Medications Requested by (Fluid-1, Pharmacy, Patient Call, Fax) : [facility] Name: [facility] Phone # : [phone] Name of Medication : Robaxin Dose : 500 mg Tablet If renewal, auth date expiration: NA Prescribing Provider: Eliceo Last OV: 02/05/2024 with Hamdamarie Insurance Provider : Medicare / [employer]. Is insurance card scanned in, including Rx info? Medicare card scanned - no RX information Insurance Phone : CoverMyMeds [place]: NA E-PA? Yes documented in this encounterMercy Health [facility] Hospital05-24-2024 History of Present illness Narrative* Rachele [...] visit. Either the patient or their legal bilingual sales representative has been informed of the [...] these with the patient: yes Rachele Fenton APRN.GENERAL SURGERY PHYSICIAN ASSISTANT HEADACHE SCORES: 06/19/2023 02/01/2024 Headache Questions ID [...] tissue component identified in the orbit. Director Financial Services: PSCB Transcribe Date/Time: Jan 31 2024 3:33P [...] articulation, and clear,coherent, and relevant. Short and watermelon inspector memory, cognition and general fund of knowledge [...] 30 minutes Rachele Fenton APRN.JOSSIE Headache Section [facility] February 05, 2024 documented in this encounterMercy Health West Hospital05-21-2024 History of Present illness Narrative* Alexandria Bartholomew MD - 02/02/2024 7:36 PM EDT Images from the original note were not included. SECTION OF SKULL BASE SURGERY MINIMALLY INVASIVE CRANIAL BASE & PITUITARY SURGERY PROGRAM [facility] [place] CC: Patient Care Team: Sammie [...] which included preparing to see the patient, [id number] patient care, completing clinical documentation, performing a [...] sphenoid wing without significant change since 05/06/2023. Director Financial Services: GUANACO Transcribe Date/Time: Jan 31 2024 5:10P Dictated by : WESTLEY IYER MD This examination was interpreted and the report reviewed and electronically signed by: WESTLEY IYER MD on Jan 31 2024 5:28PM EST Results-Findings * * *Final Report* * * DATE OF EXAM: Jan 29 2024 1:56PM [facility] 0319 - MRI SKULL BASE WO/W IVCON [...] tissue mass extending into the of the spa manager/esthetician or parapharyngeal spaces. The soft tissue planes of the, retropharyngeal, and prevertebral spaces are maintained. The visualized parotid glands are normal in appearance. Nasopharynx/Oropharynx: The nasopharynx and oropharynx are normal in appearance. Result History documented in this encounterMercy Health [facility] Hospital05-21-2024 Telephone encounter Note * Telephone Encounter - Mario Alberto Phillips RN - 02/02/2024 10:23 AM EDT Called the patient confirming virtual appointment today at [address] Alexandria Bartholomew ( Skull base fellow from Dr Pineda team). [facility]05-21-2024 Miscellaneous Notes* Telephone Encounter - Mario Alberto Phillips RN - 02/02/2024 10:23 AM EDT Called the patient confirming virtual appointment today at [address] Alexandria Bartholomew ( Skull base fellow from Dr Pineda team). documented in this encounterMercy Health West Hospital05-20-2024 Telephone encounter Note * Telephone Encounter [...] by mouth every 8 hours as needed [facility]05-20-2024 Miscellaneous Notes* Telephone Encounter - Jumana [...] 8 hours as needed documented in this encounterMercy Health West Hospital05-17-2024 NoteHNO ID: [id number] Author: KOFI [place] CT Service: Radiology Author [...] PATIENT PRESENTS WITH AN IMPLANTABLE OR ATTACHED UTILITY SYSTEMS REPAIRER OPERATOR: No RADIOLOGY DEPARTMENT: CT; Exam(s) Completed: Brain STERO PERIPHERAL IV DATA: Not applicable SIGNED BY: KAYLEEN Sharma January 29, 2024 12:53 [facility]05-17-2024 NoteHNO ID: [id number] Author: AILYN NEUMANN RT(R) Service: ? Author [...] PATIENT PRESENTS WITH AN IMPLANTABLE OR ATTACHED UTILITY SYSTEMS REPAIRER OPERATOR: No ALLERGIES: Reviewed and unchanged CONTRAST ALLERGY: NO. EXAM: MRI - CONTRAST TYPE: GROUP II PERIPHERAL IV DATA: Ambulatory: A peripheral IV was started in the Left antecubital site with a Angio cath: 22 gauge. RADIOLOGY DEPARTMENT: MR; Exam(s) Completed: Head: Routine Brain SIGNATURE: Ailyn Neumann RDMS, RVT- Sheila ([facility]) PATIENT NAME: Kourtney Novak DATE: January 29, 2024 TIME: 1:06 [facility]05-17-2024 History of Present illness Narrative* Kofi [...] PATIENT PRESENTS WITH AN IMPLANTABLE OR ATTACHED UTILITY SYSTEMS REPAIRER OPERATOR: No RADIOLOGY DEPARTMENT: CT; Exam(s) Completed: Brain STERO PERIPHERAL IV DATA: Not applicable SIGNED BY: KAYLEEN Sharma January 29, 2024 12:53 PM documented in this encounterMercy Health West Hospital05-17-2024 History of Present illness Narrative* Ailyn [...] PATIENT PRESENTS WITH AN IMPLANTABLE OR ATTACHED UTILITY SYSTEMS REPAIRER OPERATOR: No ALLERGIES: Reviewed and unchanged CONTRAST ALLERGY: [...] 2024 TIME: 1:06 PM documented in this encounterMercy Health [facility] Hospital05-15-2024 Telephone encounter Note * Telephone Encounter - Zeinab Wood MD - 01/27/2024 3:29 PM EDT The following approved medication requests have been transmitted electronically. Requested Prescriptions Pending Prescriptions Disp Refills etodolac (LODINE) 400 mg tablet 60 tablet 3 Sig: One tab po bid prn Zeinab Wood MD [facility]05-15-2024 Miscellaneous Notes* Telephone Encounter - Zeinab Wood MD - 01/27/2024 3:29 PM EDT The following approved medication requests have been transmitted electronically. Requested Prescriptions Pending Prescriptions Disp Refills etodolac (LODINE) 400 mg tablet 60 tablet 3 Sig: One tab po bid prn eZinab Wood MD * Telephone Encounter - Rohit [...] Visit Type Date Time Department [facility] 05/30/2024 9:40 AM [facility] Last Ophthalmology Check for Plaquenil [...] Instance) Lab Orders None documented in this encounterMercy Health West Hospital05-15-2024 Telephone encounter Note * Telephone Encounter [...] Days Visit Type Date Time Department [facility] 05/30/2024 9:40 AM [facility] Last Ophthalmology Check for Plaquenil [...] Open Future (Single Instance) Lab Orders None [facility]05-07-2024 Telephone encounter Note* Telephone Encounter - [...] discussion and consent. Both appointments were confirmed. [facility]05-07-2024 Miscellaneous Notes* Telephone Encounter - Mario [...] the patient's home. Mario Alberto Phillips RN, Principal Embedded Software Engineer documented in this encounterMercy Health West Hospital05-07-2024 Telephone encounter Note * Telephone Encounter - Mario Alberto Phillips RN - 01/19/2024 9:30 AM EDT Spoke with Ms Kourtney Novak today confirming surgery on 04/11/[address] Erik Pineda. Right middle sphenoid wing Preoperative appointments will be scheduled ~ 2 weeks prior to surgery date at a [facility] facility closer to the patient's home. Mario Alberto Phillips RN, Principal Embedded Software Engineer [facility]04-26-2024 Telephone encounter Note* Telephone Encounter - Rohit Khan MA - 01/08/2024 3:14 PM EDT Lab results received from [facility]. Placed in dr Wood folder for review,copy sent to scanning. [facility]04-26-2024 Miscellaneous Notes* Telephone Encounter - Rohit Khan MA - 01/08/2024 3:14 PM EDT Lab results received from [facility]. Placed in dr Wood foldbetty for review,copy sent to scanning. documented in this encounterMercy Health West Hospital04-23-2024 Telephone encounter Note * Telephone Encounter - Mario Alberto Phillips RN - 01/05/2024 1:04 PM EDT Spoke with Ms. Kourtney Novak today confirming surgery on Thu03/28/[address] Erik Pineda. Preoperative appointments to be scheduled at a [facility] facility near the patient's home. [facility]04-23-2024 Miscellaneous Notes* Telephone Encounter - Mario Alberto Phillips RN - 01/05/2024 1:04 PM EDT Spoke with Ms. Kourtney Novak today confirming surgery on Thu03/28/[address] Erik Pineda. Preoperative appointments to be scheduled at a [facility] facility near the patient's home. documented in this encounterMercy Health West Hospital04-22-2024 Telephone encounter Note * Telephone Encounter - Michelle Thompson MA - 01/04/2024 4:17 PM EDT Orders faxed. Confirmation received. [facility]04-22-2024 Miscellaneous Notes* Telephone Encounter - Michelle Thompson MA - 01/04/2024 4:17 PM EDT Orders faxed. Confirmation received. * Telephone Encounter - Michelle Thompson MA - 01/04/2024 2:43 PM EDT Printed labs. Sent msg to pt to clarify which [facility] to fax to. Labs/Fax sheet in Michelle'slime green folder. Please fax once clarification is received. * Telephone Encounter - Zeinab Wood MD - 01/04/2024 2:03 PM EDT Labs are ordered, please print and fax per patient request. Zeinab Wood MD * Telephone Encounter - Verenice Ga, RN - 01/04/2024 1:45 PM EDT Patient calling Needs 01/01/24 Lab Orders in [facility] please (pended) Also requesting to FAX 01/01/24 Lab Orders to [facility] She will send their FAX # in My Chart documented in this encounterMercy Health [facility] Hospital04-22-2024 Telephone encounter Note * Telephone Encounter - Michelle Thompson MA - 01/04/2024 2:43 PM EDT Printed labs. Sent msg to pt to clarify which [facility] to fax to. Labs/Fax sheet in Michelle'ofelia green folder. Please fax once clarification is received. [facility]04-22-2024 Telephone encounter Note* Telephone Encounter - Zeinab Wood MD - 01/04/2024 2:03 PM EDT Labs are ordered, please print and fax per patient request. Zeinab Wood MD [facility]04-22-2024 Telephone encounter Note* Telephone Encounter - Verenice Ga RN - 01/04/2024 1:45 PM EDT Patient calling Needs 01/01/24 Lab Orders in [facility] please (pended) Also requesting to FAX 01/01/24 Lab Orders to [facility] She will send their FAX # in My Chart [facility]03-20-2024 Miscellaneous Notes* Telephone Encounter - Tory [...] if patient had any question please call [phone]. My Chart Message also sent. * Telephone [...] Visit Type Date Time Department [facility] 05/30/2024 9:40 AM [facility] Last Ophthalmology Check for Plaquenil [...] Instance) Lab Orders None documented in this encounterMercy Health West Hospital02-29-2024 Miscellaneous Notes* Telephone Encounter - Zeinab [...] Visit Type Date Time Department [facility] 05/30/2024 9:40 AM [facility] Last Ophthalmology Check for Plaquenil [...] Instance) Lab Orders None documented in this encounterMercy Health West Hospital02-28-2024 Miscellaneous Notes* Telephone Encounter - Zeinab [...] Visit Type Date Time Department [facility] 05/30/2024 9:40 AM [facility] Last Ophthalmology Check for Plaquenil [...] Instance) Lab Orders None documented in this encounterMercy Health West Hospital02-28-2024 Miscellaneous Notes* Telephone Encounter - Mario Alberto Phillips RN - 11/11/2023 11:37 AM EST Spoke with Ms.Mandie Alex Novak today following up on the Fluid-1 message from 10/08/2023. She sent a message about having symptoms of blurry vision and was advised to schedule an appointment with ophthalmology. Today the patient stated that the blurry vision was 1 incident and that she did not have any visionchanges since. She was made aware to send an update or call for any questions or concerns. Mario Alberto Phillips RN, Principal Embedded Software Engineer documented in this encounterMercy Health West Hospital02-27-2024 Miscellaneous Notes* Telephone Encounter - Nathaly [...] Visit Type Date Time Department [facility]/30[facility]24 9[facility] Last Ophthalmology Check for Plaquenil [...] Instance) Lab Orders None documented in this encounterMercy Health West Hospital10-23-2023 Miscellaneous Notes* Telephone Encounter - Mario [...] the preoperative appointments. Mario Alberto Phillips RN, Principal Embedded Software Engineer * Telephone Encounter - Jsutine Pagan - 07/02/2023 3:04 PM EDT General Call Caller : Pt Contact Reason for Call : Pt would like to go forward w scheduling surgery. However, she would like surgeryto be scheduled in March 2024, pt would like to discuss further Patient requesting return call ? Yes documented in this encounterMercy Health West Hospital10-23-2023 Miscellaneous Notes* Telephone Encounter - Mario [...] the preoperative appointments. Mario Alberto Phillips RN, Principal Embedded Software Engineer documented in this encounterMercy Health West Hospital10-17-2023 Instructions* Patient Instructions* Heather Moy APRN.CNP [...] (due back Apr 2024). documented in this encounterMercy Health West Hospital10-17-2023 Nurse Note* Yuly Do Ma - 06/30/2023 10:52 AM EDT Additional intake questions: Has the patient had fever, nausea, vomiting, diarrhea, constipation, fatigue for > 1 week? No Does the patient have a decreased appetite? No Does patient want to see a Healthcare Administrator? No (yes to any of above refer patient to schedulers for dietitian appointment) ) Does patient have any new or increased numbness or tingling of extremities? No Is patient interested in fertility information? No Does patient need any prescription refills? No Does patient have an advanced directive in place? No, Patient referred to Resource Center documented in this encounterMercy Health West Hospital10-17-2023 History of Present illness Narrative* Erik Pineda MD - 06/30/2023 10:49 AM EDT Images from the original note were not included. SECTION OF SKULL BASE SURGERY MINIMALLY INVASIVE CRANIAL BASE & PITUITARY SURGERY PROGRAM [facility] [place] CC: Patient Care Team: Sammie Gonzalez MD as PCP - General (Family Medicine) Laron Lou DO - [facility] ASSESSMENT: In summary, Kourtney Novak is a [...] and follow-up via virtual visit. Heather Moy APRN.GENERAL SURGERY PHYSICIAN ASSISTANT I have reviewed the progess note obtained [...] which included preparing to see the patient, [id number] patient care, completing clinical documentation, performing a [...] to the prior exam. documented in this encounterMercy Health West Hospital10-13-2023 Instructions* Patient Instructions* Fahad Corey MD [...] 26, 2023 5:39 PM documented in this encounterMercy Health West Hospital10-13-2023 History of Present illness Narrative* Fahad Corey MD - 06/26/2023 5:06 PM EDT [facility] NEW EVALUATION June 26, 2023 5:00 PM I have communicated my name and active licensure. The patient's identity and physical location wereverified at the time of this visit. Either the patient or their legal bilingual sales representative has been informed of the [...] 26, 2023 5:36 PM documented in this encounterMercy Health West Hospital08-30-2023 Miscellaneous Notes* Telephone Encounter - Moira Goodrich APRN.GENERAL SURGERY PHYSICIAN ASSISTANT - 05/13/2023 1:13 PM EDT Time Frame: Next available Provider: Carmine (possible [facility]) Referring: self Please instruct patient to hand carry/ upload images prior to appt Images also requested via Electronically Dx: Multiple meningiomas with interval growth Multiple meningiomas with interval growth since 2015. MRI done for dizziness. [facility] [place] [address] [place] [address] MRI Report Signed Patient: Kourtney Novak MR#: [id number] : 1975 Acct:[id number] Age/Sex: 47 / F ADM Date: 05/06/23 Loc: MR Room: Type: [facility] Attending Dr: Sammie Gonzalez MD Copies [...] frontal subcortical white matter. documented in this encounterMercy Health West Hospital07-31-2023 Miscellaneous Notes* Telephone Encounter - Zeinab [...] Days Visit Type Date Time Department [facility] 09/28/2023 3:00 PM [facility] RE[facility] Last Ophthalmology Check for Plaquenil [...] Instance) Lab Orders None documented in this encounterMercy Health West Hospital07-31-2023 Miscellaneous Notes* Telephone Encounter - Zeinab [...] Visit Type Date Time Department [facility] 09/28/2023 3:00 PM [facility] Last Ophthalmology Check for Plaquenil [...] Instance) Lab Orders None documented in this encounterMercy Health West Hospital07-18-2023 Evaluation note* Encounter Date Diagnosis Assessment [...] labs angela m Dr. Gonzalez regarding diabetes [facility] Other 06-26-2023 Miscellaneous Notes* Telephone Encounter - Tory Thomas LPN - 03/09/2023 11:55 AM EDT Refill to soon refilled 01/19/2023 30 capsules with 3 refilles documented in this encounterMercy Health West Hospital05-08-2023 Miscellaneous Notes* Telephone Encounter - Zeinab [...] Visit Type Date Time Department [facility] MED[facility] 06/26/2023 10:40 AM [facility] Last Ophthalmology Check for Plaquenil [...] Instance) Lab Orders None documented in this encounterMercy Health West Hospital04-05-2023 Evaluation note* Encounter Date Diagnosis Assessment Notes Treatment Notes Treatment Clinical Notes Dec, Osteochondrosis of lunate of right wrist (ICD-10 - 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 May repeat ulnar wrist cortisone injection when needed. Patient instructed on the use of Voltaren Gel in the meantime Dec, Right wrist pain (ICD-10 - M25.531) Dec, Other specified postprocedural states (ICD-10 - Z98.890) [facility] Other 03-30-2023 Miscellaneous Notes* Addendum Note - [...] qd Zeinab Wood MD documented in this encounterMercy Health West Hospital01-16-2023 Miscellaneous Notes* Telephone Encounter - Zeinab [...] check out. Thank you. documented in this encounterMercy Health West Hospital01-16-2023 History of Present illness Narrative* Zeinab [...] No Swollen Glands: No documented in this encounterMercy Health West Hospital01-11-2023 Evaluation note* Encounter Date Diagnosis Assessment Notes Treatment Notes Treatment Clinical Notes Sep, Osteochondrosis of lunate of right wrist (ICD-10 - M92.211) Sep, Right wrist pain (ICD-10 - M25.531) Right ulnar wrist joint/TFCC injected with cortisone under sterile technique, patient tolerated well Sep, Other specified postprocedural states (ICD-10 - Z98.890) [facility] Other 11-22-2022 Evaluation note* Encounter Date Diagnosis Assessment Notes Treatment Notes Treatment Clinical Notes Jul, Osteochondrosis of lunate of right wrist (ICD-10 - 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 Decrease to 81 mg Aspirin once per day x 3 months then begin to wean off. Jul, Other specified postprocedural states (ICD-10 - Z98.890) [facility] Other 11-03-2022 Evaluation note* Encounter Date Diagnosis [...] pain of right shoulder (ICD-10 - M25.511) [facility] Other 10-12-2022 Evaluation note* Encounter Date Diagnosis [...] pain of left shoulder (ICD-10 - M25.512) [facility] Other 07-18-2022 Evaluation note* Encounter Date Diagnosis [...] pain of right shoulder (ICD-10 - M25.511) [facility] Other 05-16-2022 Evaluation note* Encounter Date Diagnosis [...] will order an MRI for futher review. [facility] Other 05-13-2022 Evaluation note* Encounter Date Diagnosis Assessment Notes Treatment Notes Treatment Clinical Notes January, Osteochondrosis of lunate of right wrist (ICD-10 - M92.211) January, Right wrist pain (ICD-10 - M25.531) Right ulnar wrist injected with cortisone under sterile technique, patient tolerated well January, Other specified postprocedural states (ICD-10 - Z98.890) [facility] Other 05-09-2022 Evaluation note* Encounter Date Diagnosis [...] reaction. Contiue oral prednisone as prescribed by Kaylan ANDERSON. [facility] Other 05-09-2022 History of Present illness Narrative* [...] -none Zeinab Wood MD [facility]* Encounter Date Diagnosis Assessment [...] Other specified postprocedural states (ICD-10 - Z98.890) [facility] Other 03-21-2022 Evaluation note* Encounter Date Diagnosis [...] pain of right shoulder (ICD-10 - M25.511) [facility] Other 03-09-2022 Evaluation note* Encounter Date Diagnosis Assessment Notes Treatment Notes Treatment Clinical Notes Nov, Osteochondrosis of lunate of right wrist (ICD-10 - M92.211) Patient instructed on gentle ROM exercises. Continue Aspirin. 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 Risks and benefits of procedure explained to patient; patient verbalizes understanding. 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 Patient would like to proceed with surgical treatment in October [facility] Other 11-29-2021 Evaluation note* Encounter Date Diagnosis Assessment Notes Treatment Notes Treatment Clinical Notes Jul, Carpal tunnel syndrome of right wrist (ICD-10 - G56.01) [facility] Other 10-05-2021 Evaluation note* Encounter Date Diagnosis [...] brace as needed for pain and support [facility] Other 09-22-2021 Evaluation note* Encounter Date Diagnosis [...] of right supraspinatus tendon (ICD-10 - M75.101) [facility] Other 06-21-2021 NoteHNO ID: [id number] Author: Hu Blankenship Service: Radiology Author Type: Nurse Specialist Type: Progress Notes Filed: 03/04/2021 1:11 PM [...] BY: Hu Blankenship March 04, 2021 1:10 [facility] note* Clinical Note Date [facility] Discharge summary* Clinical Note Date No Information [facility] Work Phone: Evaluation note* Diagnosis Inflammatory arthritis- Primary Unspecified inflammatory polyarthropathy Myalgia Mylagia and myositis, unspecified [facility] [place] Other Evaluedrzn noteNo assessment information available [facility] Work Phone: evaluation note* Diagnosis Inflammatory arthritis- Primary Unspecified inflammatory polyarthropathy Myalgia Mylagia and myositis, unspecified Fibromyalgia Mylagia and myositis, unspecified [facility] Diagnosis Medication overuse headache- Primary Drug induced headache, not elsewhere classified Brain mass Unspecified condition of brain Meningioma (HCC) Benign neoplasm of cerebral meninges Chronic daily headache Headache [facility] Diagnosis Intracranial meningioma (HCC)- Primary Benign neoplasm of cerebral meninges [facility]* Diagnosis Onset Date Resolution Status Osteochondrosis of lunate of right wrist acute Right wrist pain acute [facility] Work Phone: evaluation note* Diagnosis 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) Benign neoplasm of cerebral meninges documented in this encounter [facility] note* Diagnosis Benign neoplasm of meninges (HCC) Benign neoplasm of cerebral meninges documented in this encounter [facility] note* Diagnosis Chronic daily headache Headache documented in this encounter [facility] note* Diagnosis Intracranial meningioma (HCC)- Primary Benign neoplasm of cerebral meninges documented in this encounter [facility] note* Diagnosis Meningioma (HCC)- Primary Benign neoplasm of cerebral meninges Chronic daily headache Headache Intracranial meningioma (HCC) Benign neoplasm of cerebral meninges Preop testing Preoperative examination, unspecified documented in this encounter [facility] note* Diagnosis Onset Date Resolution Status Osteochondrosis of lunate of right wrist acute Right wrist pain acute Acute pain of right shoulder acute Biceps tendonitis acute [facility] Work Phone: Evaluation note* Diagnosis Onset Date Resolution Status Acute pain of right shoulder acute Biceps tendonitis acute Osteochondrosis of lunate of right wrist acute Right wrist pain acute [facility] Work Phone: evaluation note* Diagnosis Inflammatory arthritis- Primary Unspecified inflammatory polyarthropathy Fibromyalgia Mylagia and myositis, unspecified Medication monitoring encounter Encounter for therapeutic drug monitoring documented in this encounter [facility] note* Diagnosis Tooth infection- Primary Acute apical periodontitis of pulpal origin documented in this encounter [facility] note* Diagnosis Inflammatory arthritis- Primary Unspecified inflammatory polyarthropathy documented in this encounter [facility] note* Diagnosis Onset Date Resolution Status Admit Date Osteochondrosis of lunate of right wrist acute September 27 2:48pm Right wrist pain acute September 27, 2024 2:48pm [facility] Work Phone: Evaluation note* Diagnosis Encounter for medication monitoring- Primary Encounter for therapeutic drug monitoring [facility] Diagnosis Fibromyalgia Mylagia and myositis, unspecified documented in this encounter [facility] note* Diagnosis Inflammatory arthritis- Primary Unspecified inflammatory polyarthropathy Fibromyalgia Mylagia and myositis, unspecified Encounter for medication monitoring Encounter for therapeutic drug monitoring documented in this encounter [facility] note* Diagnosis Chronic daily headache Headache documented in this encounter [facility] note* Diagnosis Chronic daily headache Headache Intracranial meningioma (HCC) Benign neoplasm of cerebral meninges Preop testing Preoperative examination, unspecified [facility]* Diagnosis Pre-op evaluation- Primary Preoperative examination, [...] Preoperative examination, unspecified documented in this encounter [facility] note* Diagnosis Pre-op evaluation- Primary Preoperative [...] Preoperative examination, unspecified documented in this encounter [facility] note* Diagnosis Pre-op evaluation- Primary Preoperative [...] Fibromyalgia Assessment: Controlled with Cymbalta Monitored by [facility] rheumatology [facility]* Diagnosis Meningioma (HCC)- Primary Benign neoplasm [...] Unspecified inflammatory polyarthropathy documented in this encounter [facility] note* Diagnosis Meningioma (HCC)- Primary Benign neoplasm [...] of cerebral meninges [facility] Diagnosis Meningioma (HCC)- Primary Benign [...] and myositis, unspecified [facility] Diagnosis Meningioma (HCC)- Primary Benign [...] following unspecified surgery [facility]* Diagnosis Meningioma (HCC)- Primary Benign neoplasm of cerebral meninges Intracranial meningioma (HCC) Benign neoplasm of cerebral meninges Preop testing Preoperative examination, unspecified Chronic daily headache Headache 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) COPD (chronic obstructive pulmonary disease) ([facility]) Chronic airway obstruction, not elsewhere classified Diabetes mellitus ([facility]) Type II or unspecified type diabetes mellitus [...] daily headache Headache [facility] Diagnosis Meningioma (HCC)- Primary Benign [...] Other postprocedural status [facility] Diagnosis Meningioma (HCC)- Primary Benign [...] (BMI) of 40.0 to 44.9 in adult ([facility]) Pre-op evaluation- Primary Preoperative examination, unspecified Anxiety [...] (BMI) of 40.0 to 44.9 in adult ([facility]) Inflammatory arthritis Unspecified inflammatory polyarthropathy Intracranial meningioma (HCC)- Primary Benign neoplasm of cerebral meninges Postprocedural state Other postprocedural status Dizziness and giddiness [facility]* Diagnosis Meningioma (HCC)- Primary Benign neoplasm of cerebral meninges Intracranial meningioma (HCC) Benign neoplasm of cerebral meninges Preop testing Preoperative examination, unspecified Chronic daily headache Headache Neoplasm causing mass effect and brain compression on adjacent structures ([facility]) COPD (chronic obstructive pulmonary disease) ([facility]) Chronic airway obstruction, not elsewhere classified Diabetes mellitus ([facility]) Type II or unspecified type diabetes mellitus [...] (BMI) of 40.0 to 44.9 in adult ([facility]) Pre-op evaluation- Primary Preoperative examination, unspecified Anxiety Anxiety state, unspecified Chronic obstructive pulmonary disease, unspecified COPD type ([facility]) Depression, unspecified depression type Type 2 diabetes mellitus without complication, without long-term current use of insulin ([facility]) Mixed hyperlipidemia Fibromyalgia Mylagia and myositis, unspecified Intracranial meningioma (HCC) Benign neoplasm of cerebral meninges Preop testing Preoperative examination, unspecified MAREK (obstructive sleep apnea) Obstructive sleep apnea (adult) (pediatric) Gastroesophageal reflux disease, unspecified whether esophagitis present Hypothyroidism, unspecified type Class 3 severe obesity due to excess calories with serious comorbidity and body mass index (BMI) of 40.0 to 44.9 in adult ([facility]) Inflammatory arthritis Unspecified inflammatory polyarthropathy Meningioma (HCC)- Primary Benign neoplasm of cerebral meninges Chronic daily headache Headache documented in this encounter [facility] note* Diagnosis Meningioma (HCC)- Primary Benign neoplasm of cerebral meninges Intracranial meningioma (HCC) Benign neoplasm of cerebral meninges Preop testing Preoperative examination, unspecified Chronic daily headache Headache 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) COPD (chronic obstructive pulmonary disease) ([facility]) Chronic airway obstruction, not elsewhere classified Diabetes mellitus ([facility]) Type II or unspecified type diabetes mellitus [...] (BMI) of 40.0 to 44.9 in adult ([facility]) Pre-op evaluation- Primary Preoperative examination, unspecified Anxiety Anxiety state, unspecified Chronic obstructive pulmonary disease, unspecified COPD type ([facility]) Depression, unspecified depression type Type 2 diabetes mellitus without complication, without long-term current use of insulin ([facility]) Mixed hyperlipidemia Fibromyalgia Mylagia and myositis, unspecified Intracranial meningioma (HCC) Benign neoplasm of cerebral meninges Preop testing Preoperative examination, unspecified MAREK (obstructive sleep apnea) Obstructive sleep apnea (adult) (pediatric) Gastroesophageal reflux disease, unspecified whether esophagitis present Hypothyroidism, unspecified type Class 3 severe obesity due to excess calories with serious comorbidity and body mass index (BMI) of 40.0 to 44.9 in adult ([facility]) Inflammatory arthritis Unspecified inflammatory polyarthropathy Chronic daily headache Headache documented in this encounter [facility] note* Diagnosis Fibromyalgia Unspecified myalgia and myositis [facility] Clinical [facility] Date No Information [facility] Work Phone: History general Narrative - Reported* Type Description Date Medical History GERD Medical History gastroparesis Medical History bipolar Medical History DM II Surgical History carpal tunnel Surgical History cystectomy-left breast Surgical History right neuroplasty, ulnar nerve at elbow 08/2020 Hospitalization History see above Hospitalization History COPD [facility] Other History general Narrative - Reported* Type Description Date Medical History GERD Medical History gastroparesis Medical History bipolar Medical History DM II Medical History COPD Surgical History carpal tunnel Surgical History cystectomy-left breast Surgical History right neuroplasty, ulnar nerve at elbow 08/2020 Surgical History appendectomy 09/2021 Hospitalization History see above Hospitalization History COPD [facility] Other [facility] general Narrative - Reported* Type Description Date Medical History GERD Medical History gastroparesis Medical History bipolar Medical History DM II Medical History COPD Surgical History carpal tunnel Surgical History cystectomy-left breast Surgical History right neuroplasty, ulnar nerve at elbow 08/2020 Surgical History appendectomy 09/2021 Surgical History right wrist PIN/core decompress ion Hospitalization History see above Hospitalization History COPD [facility] Other [place] general Narrative - Reported* Type Description Date Medical History GERD Medical History gastroparesis Medical History bipolar Medical History DM II Medical History COPD Surgical History carpal tunnel Surgical History cystectomy-left breast Surgical History right neuroplasty, ulnar nerve at elbow 08/2020 Surgical History appendectomy 09/2021 Surgical History right wrist PIN/core decompress ion Surgical History cubital tunnel Hospitalization History see above Hospitalization History COPD [facility] Other History of Past illness Narrative* Condition Effective Dates (start - stop) O utcome No Information [facility] Work Phone: History of Present illness Narrative* Encounter Date Complaint History Of Prese nt Illness No Information [facility] Work Phone: Hospital Discharge instructions Additional Instructions Apply ice for the next 24 hours and then rotate heat Monitor your blood pressure at home and take the readings to your PCP Take the steroids that you were prescribed [place] for severe pain You cannot work or drive when taking [place] Breathing exercises as may you discussed to prevent further complications Follow with your [facility] Phone: Instructions* Date Instruction Additional Infor mation No Information [facility] Work Phone: Progress note* Clinical Note Date No Information [facility] Work Phone: Reason for referral (narrative)[facility] reason for [facility]: Reason for referral (narrative)* Reason For Referral No Information [facility] Work Phone: Reason for visit Narrative* MRI/CT (Routine) - Closed Specialty Diagnoses / Procedures Referred By Contac t Referred To Contact [facility] Diagnoses Intracranial meningioma (HCC) Preop testing Procedures MRI BRAIN WO/W IVCON MRI BRAIN BRAIN STEM W/O W/CONTRAST MATERIAL Erik Pineda MD [address] [place] [address] Phone: tel: fax: [place] [phone] Referral ID Status Reason Start Date Expiration Date V isits Requested Visits Authorized [id number] Closed Auto-Generate d Referral 02/10/2025 09/13/2025 1 1 [facility] of systems Narrative - Reported* System Pos/Neg Findings No Information [facility] Work Phone: Summary Purpose Family History [...] in left shoulder November 03, 2024 8:26am 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 November 03 9:12am [...] in left shoulder November 03, 2024 8:26am 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 November 03 9:12am [id number] December 13, 2024 3:07 pm Chief Complaint Admit Date M25.512 - Pain in left shoulder November 03, 2024 8:26am 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 November 03 9:12am [...] WEEKS March 22, 2025 3:55p m E78.5,R73.09,D64.9,E55.9,I10 May 152024 7:02am Reason for Visit Admit Date Osteochondrosis of lunate of right wrist March 22, 2025 3:55pm Right wrist pain March 22, 2025 3:55p m Chief Complaint Admit Date 6-8 WEEKS March 22, 2025 3:55p m E78.5,R73.09,D64.9,E55.9,I10 May 152024 7:02am M25.511 - Pain in right shoulder Septemb er 2024 10:38am NEW RT BICEP PAIN NX May 30 1:21pm Reason for Visit Admit Date Osteochondrosis of lunate of right wrist March 22, 2025 3:55pm Right wrist pain March 22, 2025 3:55p m Tear of right supraspinatus tendon Septe er 2024 1:21pm Chief Complaint Admit Date 6-8 WEEKS March 22, 2025 3:55p m E78.5,R73.09,D64.9,E55.9,I10 May 152024 7:02am M25.511 - Pain in right shoulder Septemb er 2024 10:38am NEW RT BICEP PAIN NX May 30 1:21pm rt side rib area pain June 05 8:09pm Additional Source Comments INFORMATION SOURCE (unrecogn ized section and content) DATE CREATED AUTHOR 03/10/2018 [facility] DATE CREATED AUTHOR AUTHOR'S ORGANIZ ATION 03/05/2021 [facility] DATE CREATED AUTHOR AUTHOR'S ORGANIZ ATION 10/13/2022 [facility] DATE CREATED AUTHOR AUTHOR'S ORGANIZ ATION 02/01/2024 [facility] DATE CREATED AUTHOR AUTHOR'S ORGANIZ ATION 04/13/2025 [facility] DATE CREATED AUTHOR AUTHOR'S ORGANIZ ATION 05/25/2025 [facility] DATE CREATED AUTHOR AUTHOR'S ORGANIZ ATION 05/26/2025 [facility] DATE CREATED AUTHOR AUTHOR'S ORGANIZ ATION 05/31/2025 [facility] DATE CREATED AUTHOR AUTHOR'S ORGANIZ ATION 06/06/2025 [facility] Source Comments (unrecognize d section and content) In the event this informatio n is protected by the Federal Confidentiality of Alcohol and Drug Abuse Patient Records regulations: The Federal rules restrict any use of the information to criminally investigate or prosecute any alcohol or drug abuse patient.[facility] HospitalIn the event this information is protected by the Federal Confidentiality of Alcohol and Drug Abuse Patient Records regulations: The Federal rules restrict any use of the information to criminally investigate or prosecute any alcohol or drug abuse patient.[facility] HospitalIn the event this information is protected by the Federal Confidentiality of Alcohol and Drug Abuse Patient Records regulations: The Federal rules restrict any use of the information to criminally investigate or prosecute any alcohol or drug abuse patient.[facility] HospitalIn the event this information is protected by the Federal Confidentiality of Alcohol and Drug Abuse Patient Records regulations: The Federal rules restrict any use of the information to criminally investigate or prosecute any alcohol or drug abuse patient.[facility] HospitalIn the event this information is protected by the Federal Confidentiality of Alcohol and Drug Abuse Patient Records regulations: The Federal rules restrict any use of the information to criminally investigate or prosecute any alcohol or drug abuse patient.[facility] HospitalIn the event this information is protected by the Federal Confidentiality of Alcohol and Drug Abuse Patient Records regulations: The Federal rules restrict any use of the information to criminally investigate or prosecute any alcohol or drug abuse patient.[facility] HospitalIn the event this information is protected by the Federal Confidentiality of Alcohol and Drug Abuse Patient Records regulations: The Federal rules restrict any use of the information to criminally investigate or prosecute any alcohol or drug abuse patient.[facility] HospitalIn the event this information is protected by the Federal Confidentiality of Alcohol and Drug Abuse Patient Records regulations: The Federal rules restrict any use of the information to criminally investigate or prosecute any alcohol or drug abuse patient.[facility] HospitalIn the event this information is protected by the Federal Confidentiality of Alcohol and Drug Abuse Patient Records regulations: The Federal rules restrict any use of the information to criminally investigate or prosecute any alcohol or drug abuse patient.[facility] HospitalIn the event this information is protected by the Federal Confidentiality of Alcohol and Drug Abuse Patient Records regulations: The Federal rules restrict any use of the information to criminally investigate or prosecute any alcohol or drug abuse patient.[facility] HospitalIn the event this information is protected by the Federal Confidentiality of Alcohol and Drug Abuse Patient Records regulations: The Federal rules restrict any use of the information to criminally investigate or prosecute any alcohol or drug abuse patient.[facility] HospitalIn the event this information is protected by the Federal Confidentiality of Alcohol and Drug Abuse Patient Records regulations: The Federal rules restrict any use of the information to criminally investigate or prosecute any alcohol or drug abuse patient.[facility] HospitalIn the event this information is protected by the Federal Confidentiality of Alcohol and Drug Abuse Patient Records regulations: The Federal rules restrict any use of the information to criminally investigate or prosecute any alcohol or drug abuse patient.[facility] HospitalIn the event this information is protected by the Federal Confidentiality of Alcohol and Drug Abuse Patient Records regulations: The Federal rules restrict any use of the information to criminally investigate or prosecute any alcohol or drug abuse patient.[facility] HospitalIn the event this information is protected by the Federal Confidentiality of Alcohol and Drug Abuse Patient Records regulations: The Federal rules restrict any use of the information to criminally investigate or prosecute any alcohol or drug abuse patient.[facility] HospitalIn the event this information is protected by the Federal Confidentiality of Alcohol and Drug Abuse Patient Records regulations: The Federal rules restrict any use of the information to criminally investigate or prosecute any alcohol or drug abuse patient.[facility] HospitalIn the event this information is protected by the Federal Confidentiality of Alcohol and Drug Abuse Patient Records regulations: The Federal rules restrict any use of the information to criminally investigate or prosecute any alcohol or drug abuse patient.[facility] HospitalIn the event this information is protected by the Federal Confidentiality of Alcohol and Drug Abuse Patient Records regulations: The Federal rules restrict any use of the information to criminally investigate or prosecute any alcohol or drug abuse patient.[facility] HospitalIn the event this information is protected by the Federal Confidentiality of Alcohol and Drug Abuse Patient Records regulations: The Federal rules restrict any use of the information to criminally investigate or prosecute any alcohol or drug abuse patient.[facility] HospitalIn the event this information is protected by the Federal Confidentiality of Alcohol and Drug Abuse Patient Records regulations: The Federal rules restrict any use of the information to criminally investigate or prosecute any alcohol or drug abuse patient.[facility] HospitalIn the event this information is protected by the Federal Confidentiality of Alcohol and Drug Abuse Patient Records regulations: The Federal rules restrict any use of the information to criminally investigate or prosecute any alcohol or drug abuse patient.[facility] HospitalIn the event this information is protected by the Federal Confidentiality of Alcohol and Drug Abuse Patient Records regulations: The Federal rules restrict any use of the information to criminally investigate or prosecute any alcohol or drug abuse patient.[facility] HospitalIn the event this information is protected by the Federal Confidentiality of Alcohol and Drug Abuse Patient Records regulations: The Federal rules restrict any use of the information to criminally investigate or prosecute any alcohol or drug abuse patient.[facility] HospitalIn the event this information is protected by the Federal Confidentiality of Alcohol and Drug Abuse Patient Records regulations: The Federal rules restrict any use of the information to criminally investigate or prosecute any alcohol or drug abuse patient.[facility] HospitalIn the event this information is protected by the Federal Confidentiality of Alcohol and Drug Abuse Patient Records regulations: The Federal rules restrict any use of the information to criminally investigate or prosecute any alcohol or drug abuse patient.[facility] HospitalIn the event this information is protected by the Federal Confidentiality of Alcohol and Drug Abuse Patient Records regulations: The Federal rules restrict any use of the information to criminally investigate or prosecute any alcohol or drug abuse patient.[facility] HospitalIn the event this information is protected by the Federal Confidentiality of Alcohol and Drug Abuse Patient Records regulations: The Federal rules restrict any use of the information to criminally investigate or prosecute any alcohol or drug abuse patient.[facility] HospitalIn the event this information is protected by the Federal Confidentiality of Alcohol and Drug Abuse Patient Records regulations: The Federal rules restrict any use of the information to criminally investigate or prosecute any alcohol or drug abuse patient.[facility] HospitalIn the event this information is protected by the Federal Confidentiality of Alcohol and Drug Abuse Patient Records regulations: The Federal rules restrict any use of the information to criminally investigate or prosecute any alcohol or drug abuse patient.[facility] HospitalIn the event this information is protected by the Federal Confidentiality of Alcohol and Drug Abuse Patient Records regulations: The Federal rules restrict any use of the information to criminally investigate or prosecute any alcohol or drug abuse patient.[facility] HospitalIn the event this information is protected by the Federal Confidentiality of Alcohol and Drug Abuse Patient Records regulations: The Federal rules restrict any use of the information to criminally investigate or prosecute any alcohol or drug abuse patient.[facility] HospitalIn the event this information is protected by the Federal Confidentiality of Alcohol and Drug Abuse Patient Records regulations: The Federal rules restrict any use of the information to criminally investigate or prosecute any alcohol or drug abuse patient.[facility] HospitalIn the event this information is protected by the Federal Confidentiality of Alcohol and Drug Abuse Patient Records regulations: The Federal rules restrict any use of the information to criminally investigate or prosecute any alcohol or drug abuse patient.[facility] HospitalIn the event this information is protected by the Federal Confidentiality of Alcohol and Drug Abuse Patient Records regulations: The Federal rules restrict any use of the information to criminally investigate or prosecute any alcohol or drug abuse patient.[facility] HospitalIn the event this information is protected by the Federal Confidentiality of Alcohol and Drug Abuse Patient Records regulations: The Federal rules restrict any use of the information to criminally investigate or prosecute any alcohol or drug abuse patient.[facility] HospitalIn the event this information is protected by the Federal Confidentiality of Alcohol and Drug Abuse Patient Records regulations: The Federal rules restrict any use of the information to criminally investigate or prosecute any alcohol or drug abuse patient.[facility] HospitalIn the event this information is protected by the Federal Confidentiality of Alcohol and Drug Abuse Patient Records regulations: The Federal rules restrict any use of the information to criminally investigate or prosecute any alcohol or drug abuse patient.[facility] HospitalIn the event this information is protected by the Federal Confidentiality of Alcohol and Drug Abuse Patient Records regulations: The Federal rules restrict any use of the information to criminally investigate or prosecute any alcohol or drug abuse patient.[facility] HospitalIn the event this information is protected by the Federal Confidentiality of Alcohol and Drug Abuse Patient Records regulations: The Federal rules restrict any use of the information to criminally investigate or prosecute any alcohol or drug abuse patient.[facility] HospitalIn the event this information is protected by the Federal Confidentiality of Alcohol and Drug Abuse Patient Records regulations: The Federal rules restrict any use of the information to criminally investigate or prosecute any alcohol or drug abuse patient.[facility] HospitalIn the event this information is protected by the Federal Confidentiality of Alcohol and Drug Abuse Patient Records regulations: The Federal rules restrict any use of the information to criminally investigate or prosecute any alcohol or drug abuse patient.[facility] HospitalIn the event this information is protected by the Federal Confidentiality of Alcohol and Drug Abuse Patient Records regulations: The Federal rules restrict any use of the information to criminally investigate or prosecute any alcohol or drug abuse patient.[facility] HospitalIn the event this information is protected by the Federal Confidentiality of Alcohol and Drug Abuse Patient Records regulations: The Federal rules restrict any use of the information to criminally investigate or prosecute any alcohol or drug abuse patient.[facility] HospitalIn the event this information is protected by the Federal Confidentiality of Alcohol and Drug Abuse Patient Records regulations: The Federal rules restrict any use of the information to criminally investigate or prosecute any alcohol or drug abuse patient.[facility] HospitalIn the event this information is protected by the Federal Confidentiality of Alcohol and Drug Abuse Patient Records regulations: The Federal rules restrict any use of the information to criminally investigate or prosecute any alcohol or drug abuse patient.[facility] HospitalIn the event this information is protected by the Federal Confidentiality of Alcohol and Drug Abuse Patient Records regulations: The Federal rules restrict any use of the information to criminally investigate or prosecute any alcohol or drug abuse patient.[facility] HospitalIn the event this information is protected by the Federal Confidentiality of Alcohol and Drug Abuse Patient Records regulations: The Federal rules restrict any use of the information to criminally investigate or prosecute any alcohol or drug abuse patient.[facility] HospitalIn the event this information is protected by the Federal Confidentiality of Alcohol and Drug Abuse Patient Records regulations: The Federal rules restrict any use of the information to criminally investigate or prosecute any alcohol or drug abuse patient.[facility] HospitalIn the event this information is protected by the Federal Confidentiality of Alcohol and Drug Abuse Patient Records regulations: The Federal rules restrict any use of the information to criminally investigate or prosecute any alcohol or drug abuse patient.[facility] HospitalIn the event this information is protected by the Federal Confidentiality of Alcohol and Drug Abuse Patient Records regulations: The Federal rules restrict any use of the information to criminally investigate or prosecute any alcohol or drug abuse patient.[facility] HospitalIn the event this information is protected by the Federal Confidentiality of Alcohol and Drug Abuse Patient Records regulations: The Federal rules restrict any use of the information to criminally investigate or prosecute any alcohol or drug abuse patient.[facility] HospitalIn the event this information is protected by the Federal Confidentiality of Alcohol and Drug Abuse Patient Records regulations: The Federal rules restrict any use of the information to criminally investigate or prosecute any alcohol or drug abuse patient.[facility] HospitalIn the event this information is protected by the Federal Confidentiality of Alcohol and Drug Abuse Patient Records regulations: The Federal rules restrict any use of the information to criminally investigate or prosecute any alcohol or drug abuse patient.[facility] HospitalIn the event this information is protected by the Federal Confidentiality of Alcohol and Drug Abuse Patient Records regulations: The Federal rules restrict any use of the information to criminally investigate or prosecute any alcohol or drug abuse patient.[facility] HospitalIn the event this information is protected by the Federal Confidentiality of Alcohol and Drug Abuse Patient Records regulations: The Federal rules restrict any use of the information to criminally investigate or prosecute any alcohol or drug abuse patient.[facility] HospitalIn the event this information is protected by the Federal Confidentiality of Alcohol and Drug Abuse Patient Records regulations: The Federal rules restrict any use of the information to criminally investigate or prosecute any alcohol or drug abuse patient.[facility] HospitalIn the event this information is protected by the Federal Confidentiality of Alcohol and Drug Abuse Patient Records regulations: The Federal rules restrict any use of the information to criminally investigate or prosecute any alcohol or drug abuse patient.[facility] HospitalIn the event this information is protected by the Federal Confidentiality of Alcohol and Drug Abuse Patient Records regulations: The Federal rules restrict any use of the information to criminally investigate or prosecute any alcohol or drug abuse patient.[facility] HospitalIn the event this information is protected by the Federal Confidentiality of Alcohol and Drug Abuse Patient Records regulations: The Federal rules restrict any use of the information to criminally investigate or prosecute any alcohol or drug abuse patient.[facility] HospitalIn the event this information is protected by the Federal Confidentiality of Alcohol and Drug Abuse Patient Records regulations: The Federal rules restrict any use of the information to criminally investigate or prosecute any alcohol or drug abuse patient.[facility] HospitalIn the event this information is protected by the Federal Confidentiality of Alcohol and Drug Abuse Patient Records regulations: The Federal rules restrict any use of the information to criminally investigate or prosecute any alcohol or drug abuse patient.[facility] HospitalIn the event this information is protected by the Federal Confidentiality of Alcohol and Drug Abuse Patient Records regulations: The Federal rules restrict any use of the information to criminally investigate or prosecute any alcohol or drug abuse patient.[facility] HospitalIn the event this information is protected by the Federal Confidentiality of Alcohol and Drug Abuse Patient Records regulations: The Federal rules restrict any use of the information to criminally investigate or prosecute any alcohol or drug abuse patient.[facility] HospitalIn the event this information is protected by the Federal Confidentiality of Alcohol and Drug Abuse Patient Records regulations: The Federal rules restrict any use of the information to criminally investigate or prosecute any alcohol or drug abuse patient.[facility] HospitalIn the event this information is protected by the Federal Confidentiality of Alcohol and Drug Abuse Patient Records regulations: The Federal rules restrict any use of the information to criminally investigate or prosecute any alcohol or drug abuse patient.[facility] HospitalIn the event this information is protected by the Federal Confidentiality of Alcohol and Drug Abuse Patient Records regulations: The Federal rules restrict any use of the information to criminally investigate or prosecute any alcohol or drug abuse patient.[facility] HospitalIn the event this information is protected by the Federal Confidentiality of Alcohol and Drug Abuse Patient Records regulations: The Federal rules restrict any use of the information to criminally investigate or prosecute any alcohol or drug abuse patient.[facility] Reason for Visit (unrecogniz ed section [...] 60-74 MINUTES Laron Lou DO, PhD [address] [place] [address] Referral ID Status Reason Start Date Expiration Date V isits Requested Visits Authorized [id number] Closed PCP Requested Referral 06/01/2023 05/31/2024 1 [...] CT GUIDANCE STEREOTACTIC LOCALIZATION Erik Pineda MD [address] [place] [address] Ct [facility] [place] [address] Referral ID Status Reason Start Date Expiration Date V isits Requested Visits Authorized [id number] Closed Auto-Generate d Referral 01/19/2024 02/17/2025 1 1 Specialty Diagnoses / Procedures Referred By Tati gonzalez Referred To Contact MR IMAGING Diagnoses Benign neoplasm of meninges (HCC) Procedures MRI SKULL BASE WO/W IVCON MRI BRAIN BRAIN STEM W/O W/CONTRAST MATERIAL Erik Pineda MD [address] [place] [address] Mr Imaging [place] [address] Referral ID Status Reason Start Date Expiration Date V isits Requested Visits Authorized [id number] Closed Auto-Generate d Referral 01/19/2024 02/17/2025 1 1 Reason Comments Appointment Reason Comments Established Patient Pre op consent Reason Comments Daily Headache Reason Comments epidural steroid injection Reason Comments Insurance Authorization Aurelio DOYLE - Medicare / [employer]. 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 Reason Onset Date Comments Refill Request 10/10/2024 Reason Comments Care Coordination MyChart Follow up - Surgery Planning Reason Comments Med Change Request Reason Comments Established Patient Reason Comments PreOp Call Reason Comments Surgical Followup Reason Comments Patient Update Reason Comments Anesthesia Consult Specialty Diagnoses / Procedures Referred By Tati gonzalez Referred To Contact Diagnoses Intracranial meningioma (HCC) Preop testing Procedures REFER TO [facility] - PREOPERATIVE OPTIMIZATION OFFICE/OUTPATIENT [facility] MDM 60 MINUTES Erik Pineda MD [address] [place] [address] Phone: tel: fax: Referral ID Status Reason Start Date Expiration Date V isits Requested Visits Authorized [id number] Closed PCP Requested Referral 01/13/2025 01/13/2026 1 [...] Primary Care Provider, Attending Pr ovider Active Machine I Cutter Relationship Specialty Start Date End Date Sammie Gonzalez MD [address] [place] [id number] Referring Family Practice 01/14/21 Team Status: Inactive Member Role Status Dates Sammie Gonzalez MD Primary Care Provider Active Elyssa Gomes MD Attending Provider Active Team Status: Inactive Member Role Status Dates Sammie Gonzalez MD Primary Care Provider Active Gunner Cummings DPM MS Attending Provider Active Machine I Cutter Relationship Specialty Start Date End Date Sammie Gonzalez MD [address] [place] [id number] Referring Family Medicine 01/14/21 Machine I Cutter Relationship Specialty Start Date End Date Sammie Gonzalez MD [address] [place] [id number] Referring Family Medicine 01/14/21 Machine I Cutter Relationship Specialty Start Date End Date Sammie Gonzalez MD Referring Family Medicine 01/14/21 Machine I Cutter Relationship Specialty Start Date End Date Sammie Gonzalez MD Referring Family Medicine 01/14/21 Machine I Cutter Relationship Specialty Start Date End Date Sammie Gonzalez MD Referring Family Medicine 01/14/21 Machine I Cutter Relationship Specialty Start Date End Date Sammie Gonzalez MD Referring Family Medicine 01/14/21 Machine I Cutter Relationship Specialty Start Date End Date Sammie Gonzalez MD Referring Family Medicine 01/14/21 Team Status: Inactive Member Role Status Dates Sammie Gonzalez MD Primary Care Provider Active Zeinab Mckinney ([facility]) , [employer]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 Active Machine I Cutter Relationship Specialty Start Date End Date Sammie Gonzalez MD [address] [facility] [place] [address] PCP - General Family Medicine 05/12/23 Sammie Gonzalez MD Referring Family Medicine 01/14/21 Sammie Gonzalez MD [address] [facility] [place] [address] Referring Family Medicine 05/12/23 Machine I Cutter Relationship Specialty Start Date End Date Sammie Gonzalez MD [address] [facility] [place] [address] PCP - General Family Medicine 05/12/23 Sammie Gonzalez MD Referring Family Medicine 01/14/21 Sammie Gonzalez MD [address] [facility] [place] [address] Referring Family Medicine 05/12/23 Machine I Cutter Relationship Specialty Start Date End Date Sammie Gonzalez MD [address] [facility] [place] [address] PCP - General Family Medicine 05/12/23 Sammie Gonzalez MD Referring Family Medicine 01/14/21 Sammie Gonzalez MD [address] [facility] [place] [address] Referring Family Medicine 05/12/23 Machine I Cutter Relationship Specialty Start Date End Date Sammie Gonzalez MD [address] [facility] [place] [address] PCP - General Family Medicine 05/12/23 Sammie Gonzalez MD Referring Family Medicine 01/14/21 Sammie Gonzalez MD [address] [facility] [place] [address] Referring Family Medicine 05/12/23 Machine I Cutter Relationship Specialty Start Date End Date Sammie Gonzalez MD [address] [facility] [place] [address] PCP - General Family Medicine 05/12/23 Sammie Gonzalez MD Referring Family Medicine 01/14/21 Sammie Gonzalez MD [address] [facility] [place] [address] Referring Family Medicine 05/12/23 Machine I Cutter Relationship Specialty Start Date End Date Sammie Gonzalez MD [address] [place] [address] PCP - General Family Medicine 05/12/23 Sammie Gonzalez MD Referring Family Medicine 01/14/21 Sammie Gonzalez MD [address] [place] [address] Referring Family Medicine 05/12/23 Machine I Cutter Relationship Specialty Start Date End Date Sammie Gonzalez MD [address] [place] [address] PCP - General Family Medicine 05/12/23 Sammie Gonzalez MD Referring Family Medicine 01/14/21 Sammie Gonzalez MD [address] [place] [address] Referring Family Medicine 05/12/23 Machine I Cutter Relationship Specialty Start Date End Date Sammie Gonzalez MD [address] [place] [address] PCP - General Family Medicine 05/12/23 Sammie Gonzalez MD Referring Family Medicine 01/14/21 Sammie Gonzalez MD [address] [place] [address] Referring Family Medicine 05/12/23 Machine I Cutter Relationship Specialty Start Date End Date Sammie Gonzalez MD [address] [place] [address] PCP - General Family Medicine 05/12/23 Sammie Gonzalez MD Referring Family Medicine 01/14/21 Sammie Gonzalez MD [address] [place] [address] Referring Family Medicine 05/12/23 Team Status: Inactive [...] January 08, 2024 End: January 08, 2024 Machine I Cutter Relationship Specialty Start Date End Date Sammie Gonzalez MD [address] [place] [address] PCP - General Family Medicine 05/12/23 Sammie Gonzalez MD Referring Family Medicine 01/14/21 Sammie Gonzalez MD [address] [place] [address] Referring Family Medicine 05/12/23 Machine I Cutter Relationship Specialty Start Date End Date Sammie Gonzalez MD [address] [place] [address] PCP - General Family Medicine 05/12/23 Sammie Gonzalez MD Referring Family Medicine 01/14/21 Sammie Gonzalez MD [address] [place] [address] Referring Family Medicine 05/12/23 Machine I Cutter Relationship Specialty Start Date End Date Sammie Gonzalez MD [address] [place] [address] PCP - General Family Medicine 05/12/23 Sammie Gonzalez MD Referring Family Medicine 01/14/21 Sammie Gonzaelz MD [address] [place] [address] Referring Family Medicine 05/12/23 Team Status: Inactive Member Role Status Dates Sammie Gonzalez MD Primary Care Provider Active Start: January 26, 2024 End: January 26, 2024 Beti Bowles LYFT DRIVER-C Attending Provider Active Start: January 26, 2024 End: January 26, 2024 Team Status: Inactive Member Role Status Dates Sammie Gonzalze MD Primary Care Provide r, Attending Provider [...] March 04, 2024 End: March 04, 2024 Machine I Cutter Relationship Specialty Start Date End Date Sammie Gonzalez MD [address] [place] [address] PCP - General Family Medicine 05/12/23 Sammie Gonzalez MD Referring Family Medicine 01/14/21 Sammie Gonzalez MD [address] [place] [address] Referring Family Medicine 05/12/23 Machine I Cutter Relationship Specialty Start Date End Date Sammie Gonzalez MD [address] [place] [address] PCP - General Family Medicine 05/12/23 Sammie Gonzalez MD Referring Family Medicine 01/14/21 Sammie Gonzalez MD [address] [place] [id number] Referring Family Medicine 05/12/23 Machine I Cutter Relationship Specialty Start Date End Date Sammie Gonzalez MD [address] [place] [address] PCP - General Family Medicine 05/12/23 Sammie Gonzalez MD Referring Family Medicine 01/14/21 Sammie Gonzalez MD [address] [place] [address] Referring Family Medicine 05/12/23 Team Status: Inactive Member Role Status Dates Sammie Gonzalez MD Primary Care Provide r, Attending Provider Active Start: May 12, 2024 End: May 12, 2024 Machine I Cutter Relationship Specialty Start Date End Date Sammie Gonzalez MD [address] [place] [address] PCP - General Family Medicine 05/12/23 Sammie Gonzalez MD Referring Family Medicine 01/14/21 Sammie Gonzalez MD [address] [place] [address] Referring Family Medicine 05/12/23 Machine I Cutter Relationship Specialty Start Date End Date Sammie Gonzalez MD [address] [place] [address] PCP - General Family Medicine 05/12/23 Sammie Gonzalez MD Referring Family Medicine 01/14/21 Sammie Gonzalez MD [address] [place] [address] Referring Family Medicine 05/12/23 Team Status: Inactive [...] June 22, 2024 End: June 22, 2024 Machine I Cutter Relationship Specialty Start Date End Date Sammie Gonzalez MD [address] [place] [address] PCP - General Family Medicine 03/12/23 Machine I Cutter Relationship Specialty Start Date End Date Sammie Gonzalez MD [address] [place] [address] PCP - General Family Medicine 05/12/23 Sammie Gonzalez MD Referring Family Medicine 01/14/21 Sammie Gonzalez MD [address] [place] [address] Referring Family Medicine 05/12/23 Team Status: Inactive Member Role Status Dates Sammie Gonzalez MD Primary Care Provider Active Start: September 16, 2024 End: September 16, 2024 Referral Self Attending Provider Active Start: J 2024 End: September 16, 2024 Team Status: [...] September 27, 2024 End: September 27, 2024 Machine I Cutter Relationship Specialty Start Date End Date Sammie Gonzalez MD [address] [place] [address] PCP - General Family Medicine 05/12/23 Sammie Gonzalez MD Referring Family Medicine 01/14/21 Sammie Gonzalez MD [address] [place] [address] Referring Family Medicine 05/12/23 Machine I Cutter Relationship Specialty Start Date End Date Sammie Gonzalez MD [address] [place] [address] PCP - General Family Medicine 05/12/23 Sammie Gonzalez MD Referring Family Medicine 01/14/21 Sammie Gonzalez MD [address] [place] [address] Referring Family Medicine 05/12/23 Team Status: Active Member Role Status Dates Mk Broderick MD Attending Provider Active Star t: November 03, 2024 Sammie Gonzalez MD Primary Care Provider Active Start: November 03, 2024 Team Status: Inactive Member Role Status Dates Sammie Gonzalez MD Primary Care Provider Active Start: November 03, 2024 End: November 03, 2024 Mk Brodeirck MD Attending Provider Active Star t: November 03, 2024 End: November 03, 2024 Team Status: Inactive Member Role Status David Broderick MD Attending Provider Active Star t: November 03, 2024 End: November 03, 2024 Sammie Gonzalez MD Primary Care Provider Active Start: November 03, 2024 End: November 03, 2024 Machine I Cutter Relationship Specialty Start Date End Date Sammie Gonzalez MD [address] [place] [address] PCP - General Family Medicine 05/12/23 Sammie Gonzalez MD Referring Family Medicine 01/14/21 Sammie Gonzalez MD [address] [place] [address] Referring Family Medicine 05/12/23 Team Status: Inactive Member Role Status David [...] Attending Provider Active Start: December 27, 2024 Machine I Cutter Relationship Specialty Start Date End Date Sammie Gonzalez MD [address] [place] [address] PCP - General Family Medicine 05/12/23 Sammie Gonzalez MD Referring Family Medicine 01/14/21 Sammie Gonzalez MD [address] [place] [address] Referring Family Medicine 05/12/23 Team Status: Inactive [...] February 10, 2025 End: February 10, 2025 Machine I Cutter Relationship Specialty Start Date End Date Sammie Gonzalez MD [address] [place] [address] PCP - General Family Medicine 05/12/23 Sammie Gonzalez MD Referring Family Medicine 01/14/21 Sammie Gonzalez MD [address] [place] [address] Referring Family Medicine 05/12/23 Machine I Cutter Relationship Specialty Start Date End Date Sammie Gonzalez MD [address] [place] [address] PCP - General Family Medicine 05/12/23 Sammie Gonzalez MD Referring Family Medicine 01/14/21 Sammie Gonzalez MD [address] [place] [address] Referring Family Medicine 05/12/23 Machine I Cutter Relationship Specialty Start Date End Date Sammie Gonzalez MD [address] [place] [address] PCP - General Family Medicine 05/12/23 Sammie Gonzalez MD Referring Family Medicine 01/14/21 Sammie Gonzalez MD [address] [place] [address] Referring Family Medicine 05/12/23 Machine I Cutter Relationship Specialty Start Date End Date Sammie Gonzalez MD [address] [place] [address] PCP - General Family Medicine 05/12/23 Sammie Gonzalez MD Referring Family Medicine 01/14/21 Sammie Gonzalez MD [address] [place] [address] Referring Family Medicine 05/12/23 Machine I Cutter Relationship Specialty Start Date End Date Sammie Gonzalez MD [address] [place] [address] PCP - General Family Medicine 05/12/23 Sammie Gonzalez MD Referring Family Medicine 01/14/21 Sammie Gonzalez MD [address] [place] [address] Referring Family Medicine 05/12/23 Machine I Cutter Relationship Specialty Start Date End Date Sammie Gonzalez MD [address] [place] [address] PCP - General Family Medicine 05/12/23 Sammie Gonzalez MD Referring Family Medicine 01/14/21 Sammie Gonzalez MD [address] [place] [address] Referring Family Medicine 05/12/23 Machine I Cutter Relationship Specialty Start Date End Date Sammie Gonzalez MD [address] [place] [address] PCP - General Family Medicine 05/12/23 Sammie Gonzalez MD Referring Family Medicine 01/14/21 Sammie Gonzalez MD [address] [place] [address] Referring Family Medicine 05/12/23 Machine I Cutter Relationship Specialty Start Date End Date Sammie Gonzalez MD [address] [place] [address] PCP - General Family Medicine 05/12/23 Sammie Gonzalez MD Referring Family Medicine 01/14/21 Sammie Gonzalez MD [address] [place] [address] Referring Family Medicine 05/12/23 Machine I Cutter Relationship Specialty Start Date End Date Sammie Gonzalez MD [address] [place] [address] PCP - General Family Medicine 05/12/23 Sammie Gonzalez MD Referring Family Medicine 01/14/21 Sammie Gonzalez MD [address] [place] [address] Referring Family Medicine 05/12/23 Machine I Cutter Relationship Specialty Start Date End Date Sammie Gonzalez MD [address] [place] [address] PCP - General Family Medicine 05/12/23 Sammie Gonzalez MD Referring Family Medicine 01/14/21 Sammie Gonzalez MD [address] [place] [address] Referring Family Medicine 05/12/23 Machine I Cutter Relationship Specialty Start Date End Date Sammie Gonzalez MD [address] [place] [address] PCP - General Family Medicine 05/12/23 Sammie Gonzalez MD Referring Family Medicine 01/14/21 Sammie Gonzalez MD [address] [place] [address] Referring Family Medicine 05/12/23 Machine I Cutter Relationship Specialty Start Date End Date Sammie Gonzalez MD [address] [place] [address] PCP - General Family Medicine 05/12/23 Sammie Gonzalez MD Referring Family Medicine 01/14/21 Sammie Gonzalez MD [address] [place] [address] Referring Family Medicine 05/12/23 Machine I Cutter Relationship Specialty Start Date End Date Sammie Gonzalez MD [address] [place] [address] PCP - General Family Medicine 05/12/23 Sammie Gonzalez MD Referring Family Medicine 01/14/21 Sammie Gonzalez MD [address] [place] [address] Referring Family Medicine 05/12/23 Team Status: Inactive [...] March 22, 2025 End: March 22, 2025 Machine I Cutter Relationship Specialty Start Date End Date Sammie Gonzalez MD [address] [place] [address] PCP - General Family Medicine 05/12/23 Sammie Gonzalez MD Referring Family Medicine 01/14/21 Sammie Gonzalez MD [address] [place] [address] Referring Family Medicine 05/12/23 Name Effective Dates (start - stop) Status Members No Information Machine I Cutter Relationship Specialty Start Date End Date Sammie Gonzalez MD [address] [place] [address] PCP - General Family Medicine 05/12/23 Sammie Gonzalez MD Referring Family Medicine 01/14/21 Sammie Gonzalez MD [address] [place] [address] Referring Family Medicine 05/12/23 Machine I Cutter Relationship Specialty Start Date End Date Sammie Gonzalez MD [address] [place] [address] PCP - General Family Medicine 05/12/23 Sammie Gonzalez MD Referring Family Medicine 01/14/21 Sammie Gonzalez MD [address] [place] [address] Referring Family Medicine 05/12/23 Machine I Cutter Relationship Specialty Start Date End Date Sammie Gonzalez MD [address] [place] [address] PCP - General Family Medicine 05/12/23 Sammie Gonzalez MD Referring Family Medicine 01/14/21 Sammie Gonzalez MD [address] [place] [address] Referring Family Medicine 05/12/23 Team Status: Inactive Member Role Status Dates Sammie Gonzalez MD Primary Care Provider Active Start: May 26, 2025 End: May 26, 2025 Sammie Gonzalez MD Attending Provider Active Sta rt: May 26, 2025 End: May 26, 2025 Machine I Cutter Relationship Specialty Start Date End Date Sammie Gonzalez MD PCP - General Family Medicine 03/12/23 Team Status: Active Member Role Status Dates Sammie Gonzalez MD Primary Care Provider Active Start: May 30, 2025 Krishan Nuñez DO Attending Provider Active St art: May 30, 2025 Team Status: Inactive Member Role Status Dates Sammie Gonzalez MD Primary Care Provider Active Start: May 30, 2025 End: May 30, 2025 Krishan Nuñez DO Attending Provider Active St art: May 30, 2025 End: May 30, 2025 Team Status: Inactive Member Role Status David Gonzalez MD Primary Care Provider Active Start: June 05, 2025 End: June 05, 2025 Mayda Hendrix APRN Emergency Provider Active Start: June 05, 2025 End: June 05, 2025 Machine I Cutter Relationship Specialty Start Date End Date Sammie [...] BE BASED ON THE PRIMARY CLINICAL RECORDS. [email or web address] [facility]. provides no warranty or guarantee of the accuracy or completeness of information in this document.
== END 2025-06-07 13:04 | disposition home or self-care (01) ==
LOC: PM 13:03
PROVIDERS: PCP Family Medicine; Visit Provider Nurse Practitioner
DX: M54.14 Radiculopathy, thoracic region (principal); M54.6 Pain in thoracic spine; M48.02 Spinal stenosis, cervical region; M47.812 Spondylosis without myelopathy or radiculopathy, cervical region
CPT/HCPCS: G0463

== ENCOUNTER 2025-07-06 13:01 | Outpatient (OUT) | payer MEDICARE, MEDICAID, SELFPAY ==
--- OUTSIDE RECORDS SUMMARY | 2025-06-27 20:52 | XMS_ITS | Continuity of Care Document ---
Author Organization [facility] Address [address] [place] [address] Phone Care Team Providers Care Transportation Aid Name Role Phone Jesus Camacho MD Primary Care Provider Jesus Camacho MD Attending Provider Krishan Nuñez DO Attending Provider Mayda Hendrix APRN Emergency Provider Chantal Ocampo CLIENT ARCHITECT-C Attending Provider [phone] Care Teams Patient Care Team Team Status: Active Member Role Status David Camacho MD Primary Care Provider Active Visit Care Team Team Status: Inactive Member Role Status David Camacho MD Primary Care Provider Active Start: May 26, 2025 End: May 26, 2025DoSanchez Reyes ProviderActiveStart: May 26, 2025 End: May 26, 2025 Visit Care Team Team Status: Inactive Member Role Status David Camacho MD Primary Care Provider Active Start: May 30, 2025 End: May 30, 2025Renee Meier ProviderActiveStart: May 30, 2025 End: May 30, 2025 Visit Care Team Team Status: Inactive Member Role Status David Camacho MD Primary Care Provider Active Start: May 30, 2025 End: May 30, 2025Renee Meier ProviderActiveStart: May 30, 2025 End: May 30, 2025 Visit Care Team Team Status: Inactive Member Role Status Dates Jesus Camacho MD Primary Care Provider Active Start: June 05, 2025 End: June 05Alicia Renee ProviderActiveStart: June 05, 2025 End: June 05, 2025 Visit Care Team Team Status: Inactive Member Role Status David Camacho MD Primary Care Provider Active Start: June 13, 2025 End: June 13, 2025DoSanchez Reyes ProviderActiveStart: June 13, 2025 End: June 13, 2025 Visit Care Team Team Status: Inactive Member Role Status David Camacho MD Primary Care Provider Active Start: June 19, 2025 End: June 19, 2025Sanchez Booker ProviderActiveStart: June 19, 2025 End: June 19, 2025 Visit Care Team Team Status: Inactive Member Role Status David Camacho MD Primary Care Provider Active Start: June 26, 2025 End: June 26, 2025Sanchez Booker ProviderActiveStart: June 26, 2025 End: June 26, 2025 Visit Care Team Team Status: Inactive Member Role Status David Camacho MD Primary Care Provider Active Start: June 27, 2025 End: June 27rick Ocampo NP-CAttending ProviderActiveStart: June 27, 2025 End: June 27, 2025 Chief Complaint and Reason for Visit Chief Complaint Admit Date E78.5,R73.09,D64.9,E55.9,I10 May 152024 7:02am M25.511 - Pain in right shoulder Sept er 2024 10:38am NEW RT BICEP PAIN NX May 30 1:21pm rt side rib area pain June 05 8:09pm E04.1 June 13, 2025 2:50pm R07.89 June 19, 2025 3: 46pm E28.39 June 26, 2025 1 :55pm M54.14 June 27, 2025 5 :15pm Reason for Visit Admit Date Tear of right supraspinatus tendon Maye betty 2024 1:21pm Allergies, Adverse Reactions, Alerts Allergen Type Severity Reaction Last Updated Verified Status No Known Allergies Allergy Unknown June 05, 2025 8:21pmYesActive Social History Smoking Status Status Start Date End Date Date of Observa tion Never smoked tobacco (finding) June 05, 2025 8:19pm Observation Status Observation Response Date of Response Legal Sex Female (finding) Sex Assigned At BirthFemaleFebary 1975Pregnancy StatusNSeptember 2024 Family History Relationship Condition Age at Onset Recorded Date/T sarabjit grandparent Coronary artery disease Unknown fatherEpilepsyUnknownDiabetes mellitusUnknownHepatic cirrhosisUnknownHepatitis C virus infectionUnknownHypertensionUnknownHypercholesterolemiaUnknownmother Hepatitis C virus infectionUnknownHypertensionUnknownHypercholesterolemiaUnknown fatherDeceasedUnknown Problems Active Problems Medical Problem Onset Date Status Postoperative pain of extremity Unknown Active Acute exacerbation of chronic obstructive airway s disease Unknown Active Kienb ck's disease Unknown Active Osteochondrosis of lunate of right wrist Unknown Active Dyspepsia and disorder of function of stomach Un known Active Cellulitis of forearm Unknown Active Dog bite Unknown Active Anxiety Unknown Active Acute pain of right shoulder Unknown Act mary Tear of right supraspinatus tendon Unknown Active Acute pain of left shoulder Unknown Acti ve Gastritis Unknown Active Cat bite Unknown Active Epigastric pain Unknown Active Cat scratch Unknown Active Cat scratch Unknown Active Rectal bleeding Unknown Active Right wrist pain Unknown Active Acute appendicitis Unknown Active Biceps tendonitis Unknown Active Bursitis of left shoulder Unknown Active Inactive/Resolved Problems Medical Problem Onset Date Status Rib fracture Unknown Resolved Medications Medication Status Dose Units Route Directions Qty Days St art Date Stop Date End Date Instructions Adherence Oxycodone 30 mg Tablet Discontinued 30 MG PO Four times daily as needed for Pain October 09, 2017 1:00ambruary 2018 12:19pmAmoxicillin-Pot Clavulanate (Augmentin) 875-125 mg myolvvOkrqaiahzkuf9GTZNIEmhte ldlhv7551Zuqbgye2017 1:00amFebruary 2018 12:18pmAzithromycin 500 mg fyjadkUcuwvidpqsqa620JQRI Sltwk53Wuwhlpw 2018 1:00amFebruary 2017 1:00amFebruary 2017 1:04amAlbuterol Sulfate 2.5 mg /3 mL (0.083 %) Solution For NebulizationActive 2.5MGINHALATIONFour times daily as needed for Shortness Of BreathDeceer 2019 1:00amUnknownLisinopril 10 mg ybfhgaMptxmu71KBOVMghdrUtmsvvoh 2019 1:00amUnknownHydrochlorothiazide 25 mg rvrbvoZheiie59QZLPXcxexUlzcrlnk 2019 1:00amUnknownBudesonide (Pulmicort) 1 mg/2 mL suspension for nebulization Oqrxzn0WPNZMRSMCQNVLhbnd morningDe2019 1:00amUnknownMometasone- Formoterol (Dulera) 200-5 mcg/actuation HFA aerosol bwunjblCmfgin5DGVCIUTOVEONJK Twice dailySeptember 11, 2020 1:00amUnknownIpratropium [place] 0.02 % Solution Active0.5XAEROXQEYBEIJ3X as needed for Shortness Of BreathDeceer 2019 1:00amUnknownAspirin 325 mg FgljugLsagrg973FCZIZtsvc dailyJanuary 2021 1:00amUnknownHydroxychloroquine (Plaquenil) 200 mg FahtvsOcjxhw170DSBKNlwir dailyJanuary 2021 1:62ziItjedkoTbrzodtbyi-Szgfeybynocgr-Ksgs (Fioricet) 50-300-40 mg ZwvwhabTqratt5KSJPBDNFBH 4-6 HOURS as needed for migrainesSepuary 2021 1:00amUnknownIbuprofen 600 mg ksuvteHzdcqvbdsjcn918KLIROVLYZ 4-6 HOURS as needed for xqti163Xurhsjr 2021 1:00amJanuary 2021 12:49pmdo not exceed 4 doses in a 24 hour periodOxycodone-Acetaminophen (Percocet) 5-325 mg cdaltyAciqdaqqqzkg7MIBEWUIUUL 4-6 HOURS as needed for jyae560Ntotest 2021October 02, 2021 4:22amCephalexin 500 mg rkhajgIrtmwgjhzkfz845DYTKTaby times qdqqx58AsnuhynSeptember 18, 2021 1:002021 12:45pmSucralfate (Carafate) 1 gram isgrpdEuxmqfrxzqsf6JEBKLmxsdb meals and at anondtk53YamwclfOctober 02, 2021 1:002021 12:59pmOndansetron 4 mg tablet,pfdibdvrbydsoiIdrhyn7IN POQ8H as needed for nausea and kdjwdqbk20QqhxrpwOctober 02, 2021 1:00amUnknown Hydrocodone-Acetaminophen 5-325 mg ryvcljVpycqw9HEXZSFRZJP 4-6 HOURS as needed for zpfv873Vvwnsurjj 2024UnknownCarisoprodol 350 mg edabjwXlniddziixjv411 MGPOFour times daily as needed for PainDecemb2016 1:00am[facility] 2018 12:18pmPioglitazone 15 mg tabletDiscontinuedSeptember 12, 2017 1:00am October 09, 2017 10:47pmMetformin 500 mg nxjfejEukrap0873CDWCDiuee daily September 12, 2017 1:00amUnknownLamotrigine 200 mg sdlvfsMnivkp768DZFXHcqln September 12, 2017 1:00amUnknownRanitidine Hcl 300 mg oqdjksLosfdn201RKXUVqqdn as needed for Abdominal DiscomfortSeptember 12, 2017 1:00amUnknownPantoprazole 40 tablet,delayed release (DR/EC)Wxqantahzzsi81MNOMKuzem dailySeptember 12, 2017 1:00am[facility]2019 7:28amHydroxyzine Pamoate 25 mg capsule Regrvscdpwkz00MBFTSlai times daily as needed for AnxietySeptember 12, 2017 1:00am2019 7:26amMilnacipran (Savella) 50 mg djvuobWbachs958FUXD Twice dailySeptember 12, 2017 1:99yrEootofbItvjfa-Dowmutog-Lhabbqc (Pork) (Creon) 24,000-76,000 -120,000 unit capsule,delayed release(DR/EC)Discontinued1 TABPOThree times dailySeptember 12, 2017 1:00am[facility] 2018 12:18pm Roflumilast (Daliresp) 500 mcg lzwvmdAsagyi441BFQKPCjjhcEpecdjyb 2016 1:00amUnknownVilazodone (Viibryd) 40 mg ocrwljJkgeez65FRMPRyfahJholmfyh 30th, 2017 1:00amUnknownLurasidone (Latuda) 120 mg ncliglIwdbesnsqyzd947CCZGYcnjn September 12, 2017 1:00amFebruary 2018 12:18pmCanagliflozin 100 tablet Rrjlqmoemqwe434AXWAFjfovGpjjweyz 30th, 2017 1:00amApril 2018 1:46pm Oxycodone (Oxycontin) 40 mg tablet extended release 68mkXlhtyvfypvok14MAKIUhmun daily2016 1:00amFebruary 2018 12:19pmGlycopyrrolate 1 mg cmlvojEgvroq1TVKTWajfgWqubftfo 2018 1:00amUnknownPioglitazone (Actos) 15 mg hbijwqWskmgr33WVADByofoFcebiznx 2018 1:00amUnknownSucralfate 1 gram jdefgmTqotjjjputyh0TYQPRonn times dailyFebruary 2018 1:00am[facility] 7:28amDoxepin 10 mg luhjidzVrgeii88ERGPXkxjs times daily as needed for AnxietyFebruary 2018 1:00amUnknownSimvastatin 20 mg oomywwVnyswt62DTMQ DailyFebruary 2018 1:00amUnknownLubiprostone (Amitiza) 24 mcg capsule Rpkxww94NCZUTCnspw dailyFebruary 2018 1:00amUnknownBrexpiprazole (Rexulti) 2 mg gqflclQsvhsh4BDFJTiogbVsrskzuw 2018 1:00amUnknownDapagliflozin Propanediol 5 mg epnyriDfeque3WJOGCnpquZuzbv 2018 12:00amUnknownPrednisone 50 mg yqhrauXsfnapjruoqo29DMZPMafne16Joxgh 2018 12:00am[facility] 2019 7:28amadminister with food or milkIbuprofen 800 mg kgxjpuVdsbew895KYKAW9F as needed for bprw81Wtcrbkmzg 2nd, 2019 12:00amUnknownAmoxicillin-Pot Clavulanate (Augmentin) 875-125 mg rjwgucQxcgfehwtrkn1LUSBAUdgck xsism7109Hbivduqpr 2nd, 2019 12:00amDecember 2019 7:25amPrednisone 20 mg deamneLukvmvstaoxc57GDRS Gujab358Yrqqfluc 2019 1:00amDecember 2019 7:28amBenzonatate 100 mg GkicxfaOoknbc874MKOGQ6M as needed for CoughJanuary 2021 1:00amUnknown Sucralfate (Carafate) 1 gram hxymyvIrzqec3EYUUNdtjns meals and at bedtimeJanuary 2021 12:59pmUnknownDexlansoprazole (Dexilant) 60 mg capsule,biphase delayed duooncEsjpdv59QEOUSjram dailyJanuary 2021 1:00amUnknownTopiramate (Topamax) 50 mg TstlwnIlfosx83TQKYEjuruJiyxklzy 2021 1:00amUnknown Hydrocodone-Acetaminophen 5-325 mg tabletActive1 - 2TABPOEVERY 4-6 HOURS as needed for mkpb929Vqhetvbl 2021UnknownDoxycycline Hyclate 100 mg tablet Nfoghh337RBUDAtzth wlavo664Mlpktnwg 2021 1:00amUnknownDiclofenac Sodium (Voltaren Arthritis Pain) 1 % jkdLlbqxh6UBRDJJFIPRpop times iqzdy983Fvn 2024 12:00amapply to single knee, ankle, foot; for foot includes sole/toes/top of footUnknownNortriptyline 25 mg yaxnfxrFljdpr34TICOYddyk 2023 12:00am Unknown Immunizations Immunization Event Date Not Given Reason Dose Number Factorer Lot Number Vaccine Information Statement (VIS) Detail Administration Location COVID-19 Nika Bruno ([facility] [place]) January 02 [id number]trCOVID-19 Nika Bruno ([facility] [place])January [id number] [facility]trQuadrivalent Influenza (mdv)September 29, 2014 Procedures Procedure Date Performed Status XR dexa axial skeleton June 26, 2025 1:58pm completed US thyroid June 13, 2025 2:52pm comp leted XR shoulder RT min 2V* May 30, 2025 10:3 8am completed XR ribs RT min 3V w CXR1V* June 05, 2025 9:16pm completed MR thoracic spine wo con June 27, 2025 5:17 pm completed XR pre/post mri xray June 27, 2025 5:18pm c ompleted CT chest wo con June 19, 2025 3:49pm complet ed Relevant Diagnostic Tests and/or Laboratory Data Laboratory Results Test Collection Date/Time Result Date/Time Result Interpretation Reference Range Result Comment Performing Site Corrected White Blood Count May 26, 2025 7:07am May 26, 2025 10:01am 8.3 10*3/uL 3.8-11.6FOhio[facility] [id number] [address] [place] [address] 00852Sxxwlnwdawp WBC CountSeptember 2024 7:07amSeptember 2024 10:01am8.3 10*3/uL3.8-11.6FOhioHealth [facility]ering[facility] [id number] [address] [place] [address] 17659Qbh Blood CountSeptember 2024 7:07amSeptember 2024 10:01am4.27 10*6/uL3.60-5.00[facility] [id number] [address] [place] [address] 75437BnpqcahhawIphcwlyrm 2024 7:07amSeptember 2024 10:01am12.5 g/dL11.8-15.4FOhio[facility] [id number] [address] [place] [address] 00095AodxftimtlFgenujyvr 2024 7:07amSeptember 2024 10:01am37.8 %34.0-46.4FOhio[facility] [id number] [address] [place] [address] 47760Jkru Corpuscular VolumeSeptember 2024 7:07amSeptember 2024 10:01am88.5 aK01-930BnwwuohdsTrihealth [facility] [id number] [address] [facility] [address]Stey Corpuscular HemoglobinSeptember 2024 7:07amSeptember 2024 10:01am29.2 pg24.7-34.3FOhio[facility] [id number] [address] [facility] [address]Syly Corpuscular Hemoglobin ConcentSeptember 2024 7:07am May 26, 2025 10:01am33.0 g/dL32.0-35.0[facility] [id number] [address] [facility] 07654Xlp Cell Distribution WidthSeptember 2024 7:07amSeptember 2024 10:01am13.5 %11.9-15.3FOhio[facility] [id number] [address] [facility] 18338Ovxiqvch CountSeptember 2024 7:07amSeptember 2024 10:30qc986 10*3/kT360-358QrfwrixzdTrihealth [facility] [id number] [address] [facility] [address]38Uios Platelet VolumeSeptember 2024 7:07amSept2024 10:01am8.3 fL6.3-10.7FOhioHealth [facility] [id number] [address] [facility] 85691Ukuyijwztql (%) (Auto)May 26, 2025 7:07amSept2024 10:01am50.3 %.[facility] [id number] [address] [facility] [address]Gqnukgsppun (%) (Auto)May 26, 2025 7:07amSept2024 10:01am34.8 %.[facility] [id number] [address] [facility] [address]Igrasdxsr (%) (Auto)May 26, 2025 7:07amSept2024 10:01am11.2 %.[facility] [id number] [address] [facility] [address]Ntykpfwuxbe (%) (Auto)May 26, 2025 7:07amSept2024 10:01am3.0 %.[facility] [id number] [address] [facility] 607[address]Fyfpbddxg (%) (Auto)May 26, 2025 7:07amSept2024 10:01am0.7 %.[facility] [id number] [address] [facility] 20002Elihsijwh RBC Relative Count (auto)May 26, 2025 7:07am May 26, 2025 10:01am0.1 /100{WBC}0-0.5FOhioHealth [facility]ering[facility] [id number] [address] [place], [place] [address]Neutrophils # (Auto)May 26, 2025 7:07amSept2024 10:01am4.2 10*3/uL1.8-7.7FOhioHealth [facility]ering[facility] [id number] [address] [place], [place] [address]Lymphocytes # (Auto)May 26, 2025 7:07amSept2024 10:01am2.9 10*3/uL1.00-4.8[facility] [id number] [address] [place] [address] 65304Vhagxvvxs # (Auto)May 26, 2025 7:07amSept2024 10:01am0.9 10*3/uLAbove high normal0.0-0.8[facility] [id number] [address] [place], [place] [address]Eosinophils # (Auto)May 26, 2025 7:07amSept2024 10:01am0.2 10*3/uL0.0-0.45[facility] [id number] [address] [place], [place] [address]Basophils # (Auto)May 26, 2025 7:07amSept2024 10:01am0.1 10*3/uL0.0-0.2FOhioHealth [facility] [id number] [address] [place], [place] [address]Glucose LevelSept2024 7:11amSept2024 10:20am88 mg/oB23-071SAR recommended reference rangeRandom Glucose Reference Range is dependent on time and content of last meal. Glucose of more than 200 mg/dL in a nonstressed, ambulatory subject supports the diagnosisof Diabetes Mellitus.[facility] [id number] [address] [facility] [address]Apxls Urea NitrogenSeptember 2024 7:11amSeptember 2024 10:20am15 mg/dL7-25[facility] [id number] [address] [facility] 573[address]GrizplzhtcRfefjvftg 2024 7:11amSeptember 2024 10:20am0.85 mg/dL0.60-1.20[facility] [id number] [address] [facility] 16473Gqxpdxmiw GFR (CKD-EPI)May 26, 2025 7:11amSeptember 2024 10:20am> 60.0 mL/MinTrihealth Bethesda North Hospital [facility]tr [id number] [address] [facility] [address]Cpfgsc LevelSeptember 2024 7:11amSeptember 2024 10:60bh357 mmol/G830-063MrisbdddxTrihealth [facility] [id number] [address] [facility] [address]Ewdbtbvtg LevelSeptember 2024 7:11amSeptember 2024 10:20am4.6 mmol/L3.5-5.1FOhioHealth [facility]ering[facility] [id number] [address] [facility] 13[address]Tcjeosou LevelSeptember 2024 7:11amSeptember 2024 10:93xu914 mmol/P84-208VtpevrdkkTrihealth [facility] [id number] [address] [facility] 50607Gwjkus Dioxide LevelSeptember 2024 7:11amSeptember 2024 10:20am26.4 mmol/L21.0-31.0[facility] [id number] [address] [facility] [address]Uudkl GapSeptember 2024 7:11amSeptember 2024 10:20am13.2 mEq/L6.0-15.0[facility] [id number] [address] [facility] 06284Gklxazf LevelSeptember 2024 7:11amSeptember 2024 10:20am9.1 mg/dL8.6-10.3FOhio[facility] [id number] [address] [facility] [address]Lilsyuepwx LevelSeptember 2024 7:07amSeptember 2024 10:21am3.8 mg/dL2.5-4.5FOhioHealth [facility] [id number] [address] [facility] 12844Ozjvbtgff LevelSeptember 2024 7:07amSeptember 2024 10:21am1.8 mg/dLBelow low normal1.9-2.7FOhioHealth [facility]ering[facility] [id number] [address] [facility] 89176Reehh ProteinSeptember 2024 7:11amSeptember 2024 10:20am6.5 g/dL6.4-8.9[facility] [id number] [address] [facility] 97476RlbmtbpFxqlnluun 2024 7:11amSeptember 2024 10:20am 4.2 g/dL3.5-5.7FOhioHealth [facility] [id number] [address] [facility] 00500XtwcjndmClypfazsk 2024 7:11amSeptember 2024 10:20am 2.3 g/dLTrihealth Bethesda North Hospital Ctr [id number] [address] [facility] [address]Noimqpm/Globulin RatioSeptember 2024 7:11amSeptember 2024 10:20am1.8[facility] [id number] [address] [facility] 288[address]Agqym BilirubinSeptember 2024 7:11amSeptember 2024 10:20am0.3 mg/dL0.3-1.0[facility] [id number] [address] [facility] 04662Aoumkcoyj Amino Transf (AST/SGOT)May 26, 2025 7:11am May 26, 2025 10:20am12 U/LBelow low -95RwgnzhwauTrihealth Bethesda North Hospital Ctr [id number] [address] [facility] 74516Njigclx Aminotransferase (ALT/SGPT)May 26, 2025 7:11am May 26, 2025 10:20am17 U/L7-52[facility] [id number] [address] [facility] 867[address]Nwtizebd PhosphataseSeptember 2024 7:11amSeptember 2024 10:20am46 U/U98-958WffhetenmTrihealth Bethesda North Hospital [facility]tr [id number] [address] [facility] [address]Gzxo LevelSeptember 2024 7:07amSeptember 2024 10:21am45 ug/dLBelow low aedfux10-745VxjzuhjiqTrihealth Bethesda [facility] [id number] [address] [facility] 212[address]Bbwer Iron Binding CapacitySeptember 2024 7:07amSeptember 2024 10:97nb329 ug/zZ389-446LioelmricTrihealth [facility]hesda [facility] Hospital [facility]tr [id number] [address] [facility] 68698Jcpg SaturationSeptember 2024 7:07amSeptember 2024 10:21am10.2 %Below low oxbvpx92-70MqeogbvglTrihealth [facility]hes[facility] [id number] [address] [facility] [address]LpcmeqizdygEfspglycl 2024 7:07amSeptember 2024 10:19wt749 mg/bB934-631DlplhibdcTrihealth [facility]hesda [facility] [id number] [address] [facility] [address]IyywdzxwHosqhkvan 2024 7:07amSeptember 2024 10:43am 8.1 ng/mLBelow low shhrep07.0-306.8[facility] [id number] [address] [facility] 04007Krexkggynku LevelSeptember 2024 7:07amSeptember 2024 10:28kx880 mg/dLAbove high fewtbj433-803Tcvk less than 200 mg/dl low riskChol 201-239 mg/dl borderline riskChol 240 mg/dl and greater high risk [facility] [id number] [address] [facility] [address]FPT CholesterolSeptember 2024 7:07amSeptember 2024 10:21am67 mg/cP51-57TXU CHOL ATP-III CLASSIFICATION Cardiovascular RiskHDL > or equal to 60 mg/dL LOWHDL < 40 mg/dL [facility] [id number] [address] [facility] [address]7589Uirqicwcycpbf LevelSeptember 2024 7:07amSeptember 2024 10:54gf550 mg/dLAbove high normal0-149TRIG ATP III CLASSIFICATIONTRIG less than 150 mg/dL NormalTRIG 150-199 mg/dL Borderline highTRIG 200-500 mg/dL High TRIG greater than 500 mg/dL Very highStandard traceable to the Center for Disease Conrtrol and Prevention (CDC) test method.[facility] [id number] [address] [facility] [address]CQT Cholesterol, CalculatedSeptember 2024 7:07amSeptember 2024 10:21am91 mg/dL0-100LDL ATP III CLASSIFICATIONLDL less than 100 mg/dL OptimalLDL 100-129 mg/dL Near or above peelcepGTI717-054 mg/dL Borderline highLDL 160-189 mg/dL HighLDL greater than 189 mg/dL Very highTrihealth Bethesda North Hospital Ctr [id number] [address] [facility] 310[address]POAK CholesterolSeptember 2024 7:07amSeptember 2024 10:21am47 mg/dLTrihealth Bethesda North Hospital Ctr [id number] [address] [facility] 57498Kxnszflobwr/HDL RatioSeptember 2024 7:07amSept2024 10:21am3.1<5.0[facility] [id number] [address] [facility] 12821Uqkjndz B12 LevelSeptember 2024 7:07amSept2024 10:87gl312 pg/lL970-416XnxsrwullTrihealth [facility]da [facility] [id number] [address] [facility] 67702SarvceOvfrirccb 2024 7:07amSeptember 2024 11:28am 30.0 ng/mL>5.9Folate reference range: >5.9 ng/mlThe WHO technical consultation on folate and vitamin n85uiyeotiblxzl has determined that folate concentrations lessthan 4 ng/ml are considered deficient.[facility] [id number] [address] [facility] 28368Lzuzv ThyroxineSeptember 2024 7:07amSeptember 2024 2:51pm11.24 ug/dL5.39-11.82[facility] [id number] [address] [facility] [address]47[address]Uyyh TriiodothyronineSeptember 2024 7:07amSept2024 10:23am3.72 pg/mL2.50-3.90[facility] [id number] [address] [facility] 06224Ezefpyo Stimulating Hormone 3rd GenSeptember 2024 7:07am May 26, 2025 10:34am4.15 u[iU]/mL0.45-5.33[facility] [id number] [address] [facility] 4549469-Mwdnzcu Vitamin D TotalSeptember 2024 7:07amSept2024 10:49am31.9 ng/iX34-133SBFVCQP D STATUS 25(OH)VITAMIN D RANGE (ng/mL) Deficient <20 Insufficient 20 to <24Rxnxczxjhr58 to 100Reference: Nain MF,Anum LAURA, Brynn APARICIO, et al. Evaluation,treatment, and prevention of vitamin D deficiency; an Endocrine Society clinical practice guideline. JCEM. 2010; 96(7):1911-30.[facility] [id number] [address] [facility] [address]Goaebtst Creatinine Clearance (ChemSeptember 2024 7:11am May 26, 2025 10:20amN/[facility] [id number] [address] [facility] [address]Iytezkziie X4fUsesboqet 2024 7:07amSept2024 3:05pm5.7 %Above high normal4.3-5.6Increased risk for diabetes: 5.7 - 6.4diabetes: >6.4glycemic control for adults with diabetes: <7.0[facility] [id number] [address] [facility] 34807Gxfnqbvuv Average GlucoseSeptember 2024 7:07amSept2024 3:09wz472 mg/dLTrihealth Bethesda North [facility] [id number] [address] [facility] 63806Yvbmlyh LevelSeptember 2024 7:07amSeptember 2024 5:36am15.6 u[iU]/mL2.6-24.9Performed at: [facility] [place] [id number] [place], [place] [id number] Director: Maxim Daniel PhD, Phone: [phone] [facility] Reports Author Damion Milton [facility] HospitalReport Date/TimeOctober 2024 11:26pm [facility] Main [place] [address] [place], [place] [id number] MRI Report Signed Patient: Kourtney Novak MR#: [id number] : 1975 Acct:[id number] Age/Sex: 49 / F ADM Date: Loc: MR Room: Type: [facility] Attending Dr: Chantal LAMBERT Copies to: FAUSTO Salvador~ Ordering Provider: FAUSTO Salvador Date of Service: 06/27/25 MR/MR thoracic spine wo con: M54.14 ([id number]) XR/XR pre/post mri xray: M54.14 MR thoracic spine wo con, XR pre/post mri xray 06/27/2025 6:24 PM SIGNS AND SYMPTOMS: Worsening mid back pain PROTOCOL: Multiplanar multisequence MR images of the thoracic spine without IV contrast. Frontal and lateral radiographs of the thoracic spine. COMPARISON: 06/19/2025 FINDINGS: Radiographs of the thoracic spine: The bones of the thoracic spine are in anatomic alignment. There is preservationof vertebral body heights and intervertebral disc spaces. No fracture or subluxation. MRI thoracic spine: There is moderate disc height loss at C5-C6 and C6-C7. There is increased signal intensity within the cord at C5-C6 suggesting chronic myelomalacia. Thispreservation of vertebral body heights. The marrow signal is within normal limits. No epidural or paraspinous fluid collection is appreciated. The visualized paraspinous soft tissues are within normal limits. At T1-T2: There is a normal disc, central canal, and neural foramen. At T2-T3: There is a normal disc, central canal, and neural foramen. At T3-T4: There is a normal disc, central canal, and neural foramen. At T4-T5: There is a normal disc, central canal, and neural foramen. At T5-T6: There is a normal disc, central canal, and neural foramen. At T6-T7: There is a normal disc, central canal, and neural foramen. At T7-T8: There is a normal disc, central canal, and neural foramen. At T8-T9: There is a normal disc, central canal, and neural foramen. At T9-T10: There is a normal disc, central canal, and neural foramen. At T10-T11: Facet hypertrophy is present contributing to mild left neural foraminal narrowing without spinal canal narrowing. At T11-T12: Facet degenerative changes are present with mild to moderate left neural foraminal narrowing. No spinal canal narrowing. At T12-L1: There is a normal disc, central canal, and neural foramen. MR/MR thoracic spine wo con IMPRESSION: There is moderate disc height loss at C5-C6 and C6-C7. There is increased signal intensity within the cord at C5-C6 suggesting chronic myelomalacia. Thisis only partially evaluated. Follow-up with cervical spine MRI is recommended. The thoracic cord is normal in signal. At T10-T11: Facet hypertrophy is present contributing to mild left neural foraminal narrowing without spinal canal narrowing. At T11-T12: Facet degenerative changes are present with mild to moderate left neural foraminal narrowing. No spinal canal narrowing. Impression dictated by: Damion Milton M.D. 06/27/2025 11:26 PM Dictation Location: [place] [address] Transcribed By: [facility] 06/27/252325 Dictated By: Damion Milton II, MD 06/27/252320 Signed By: <Electronically signed by Damion Milton II, MD in OV> 06/27/252325 Vital Signs Vital Reading Result Reference Range Collection Date/Time Height 64 [in_i] June 05, 2025 8:88khGlugti480.39 kgSeptember 2024 8:19pmBody Tihymisrogb72.3 [degF]97.6-99.0September 2024 8:19pmHeart Rate74 /min 60-100September 2024 10:31pmRespiratory rate16 /tnx83-26Ivlhesxft 2024 10:31pmOxygen saturation by Pulse mdloyunc31 %95-100September 2024 10:31pmBP Fhfhoibu595 mm[Hg]100-140September 2024 10:31pmBP Rixmfhmqa93 mm[Hg]60-100September 2024 10:31pm Advance Directives Advance Directive Response Recorded Date/ Time Advance Directives Yes December 09 2:20pm Insurance Providers Guarantor Kourtney Johnson Kishore Address [address] [facility] [address]Wskndgu Info.Home Phone: Payer Policy Id Subscriber's Name Subscriber Id Effectiv e Date Expiration Date Medicaid [id number] Kourtney Johnson Kishore [id number] L [id number] Encounters Encounter Location(s) Arrival/Admit Date Discharge/Depart Date Provider(s) Departed Clinical -Lab [facility] May 26, 2025 7:02am May 26, 2025 7:03am Ivis Basurto [facility] 10:38am May 30, 2025 10:39am Krishan Nuñez DO Departed Physician/Prov ider Office Visit -[facility] May 30, 2025 1:21pm May 30, 2025 1:57pm Krishan Nuñez DO Departed Emergency -Emergency Room June 05, 2025 8:09pm June 05, 2025 10:35pm [facility]50pm[facility] 2:51pmIvis Basurtoeparted Clinical-CT [facility] 2024 3:47pmIvis Basurtoeparted Clinical[facility] 20[facility] 1:55pmOctober 2024 1:56pmIvis Basurtoarted Clinical-[facility] 20[facility] 5:[facility] 2024 5:16pmFAUSTO Salvador Recent Diagnosis Onset Date Admit Date Tear of right supraspinatus tendon Unknown May 30, 2025 1:21pm Assessments Diagnosis Onset Date Resolution Status Admit Date Tear of right supraspinatus tendon acuteSeptember 2024 1:21pm Plan of Treatment Author [place] [facility] 2:07pmImages were reviewed with the patient and possible pain etiologies were discussed. Many of the patient's symptoms are coming from injury to the rotator cuff musculature and tendons. Treatment modalities were discussed including oral anti-inflammatories, corticosteroid injections, physical therapy. We discussed that patient's symptoms will most likely resolve with conservative management. Physical therapy was emphasized to the patient and performing the exercises on their own in addition to formal therapy. Patient given order for physical therapy. A 4/1cc Marcaine / Kenalog cortisone injection was performed into the subacromial space under sterile technique. Patient tolerated the injection well with no adverse reaction. All questions answered and patient agreed with the treatment plan. Patient can follow up as needed. Note scribed by NAYELY Garrido, reviewed and amended by myself Krishan Nuñez D.O. Future Tests Future scheduled test information is unavailable Pending Tests Pending diagnostic test information is unavailable Future Visits Future appointment information is unavailable Referrals to Other Providers Reason for Referral Referral Start Date Provider Peggy kaur Contact Information Provider Address Ivis Basurto MDWork Phone: [phone] [facility] [address] Future Procedures Future procedure information is unavailable Future Medications Future medication information is unavailable Patient Instructions Instruction Admit Date Rib fracture or bruised rib - ED dischar ge instructions June 05, 2025 8:09pm
--- OUTSIDE RECORDS SUMMARY | 2025-07-06 13:06 | XMS_ITS | Encounter Summary ---
Author Organization [facility] Address [address] [place] [address] Care Team Providers Care Hydraulic Lift Driver Name Role Phone Jesus Camacho MD Primary Care Provider [phone] Encounter Details DateTypeDepartmentCare Team (Latest Contact Info)Adkxogiigyn80/21/2025Travel Social History Tobacco UseTypesPacks/DayYears UsedDateSmoking Tobacco: FormerCigarettes Comments:>10 years since las t smoked Alcohol UseStandard Drinks/WeekCommentsYes0 (1 standard drink = 0.6 oz pure alcohol)caffeine: stackersCommentsUnknownSex and Gender InformationValue Date RecordedSex Assigned at BirthNot on fileLegal QjiAobsmr52/15/2023 8:26 PM EDTGender IdentityNot on fileSexual OrientationNot on filedocumented as of this encounter Plan of Treatment DateTypeDepartmentCare Team (Latest Contact Info)Htaqghdxizx19/27/2025 2:20 PM EDTOffice Visit [facility] [address] [facility] [address] [place] [phone] Ash Greene MD [address] [facility] [address] [place] [address] documented as of this encounter Visit Diagnoses Not on filedocumented in this encounter Care Teams Team MemberRelationshipSpecialtyStart DateEnd Date Jesus Camacho MD PCP - GeneralFamily Medicine03/12/23documented as of this encounter
--- OUTSIDE RECORDS SUMMARY | 2025-07-06 13:06 | XMS_ITS | Clinical Summary ---
Author Organization [facility] Address [address] [facility] [place] [address] Care Team Providers Care Roller Inspector Name Role Phone Unavailable Primary Care Provider Unavailabl e Source Comments The following information is NOT included in Care Everywhere downloads:Psychiatric notes, ECG results, Cardiac Rehab notes, Pulmonary Function notes, data from SmartForms (includes but not limited toPregnancy data,audiograms, eye exams, pre-surgical evaluation notes, well-child exam data).[facility] Active Problems ProblemNoted DateDiagnosed DateCorneal edema due to wearing of contact lenses 11/18/2004 Social History Tobacco UseTypesPacks/DayYears UsedDateSmoking Tobacco: Never Assessed CommentsUnknownSex and Gender InformationValueDate RecordedSex Assigned at Not on fileLegal QzgPajiwg23/04/2012 12:01 PM ESTGender IdentityNot on file Sexual OrientationNot on file Plan of Treatment Health MaintenanceDue DateLast WzrfBokslofvOtdfdbpykgp90/22/1978HIV Test 1992Hepatitis C Gwpozjps71/22/1996Tdap Pkfskes4911/05/1995Hepatitis A (HAV) Vaccine (optional start 19+ years)1996Hepatitis B (HBV) Vaccine (1 of 3 - 19+ 3-dose series)1996Tetanus (Td or Tdap) Qfueoux5311/05/1996Pap Smear 11/05/19988296Lkoydzybrsk55/22/2018CRC Gargrqiij88/22/4682Vpyslorubat36/22/2023 Cologuard (Stool DNA)2022FIT2022OVID-19 Vaccine ( - 2024- season)2025Influenza Vaccine (#1)2025Shingles (RZV) Vaccine (1 of 2) 2027Pneumococcal Vaccine(s)Aged OutNo longer eligible based on patient's age to complete this topic Insurance
--- OUTSIDE RECORDS SUMMARY | 2025-07-06 13:06 | XMS_ITS | Clinical Summary ---
Author Organization [facility] Address [address] [place] [address] Care Team Providers Care Bull Gang Supervisor Name Role Phone Jesus Camacho MD Primary Care Provider [phone] Allergies No known active allergies Medications MedicationSigDispense QuantityRefillsLast FilledStart DateEnd DateStatus Brexpiprazole (Rexulti) 2 MG tablet TAKE 1 TABLET BY MOUTH ONCE DAILY Oral for 30Active covzhdslkf-wbhkdmpvzkzlk-zhbsnmjs 50-325-40 MG tablet TAKE 1 TABLET BY MOUTH FOUR TIMES DAILY NEEDED FOR HEADACHE Oral for 15Active dapagliflozin (Farxiga) 5 MG TAKE 1 TABLET BY MOUTH ONCE DAILY Oral for 30Active dexlansoprazole (Dexilant) [address] capsule 1 capsule 1 (one) time each day at the same time.Active glycopyrrolate (Robinul) 1 MG tablet TAKE 1 TABLET BY MOUTH EVERY DAY x2 weeks, then increase to 1 (ONE) tablet TWICE DAILY Oral for 30Active hydroxychloroquine (Plaquenil) 200 MG tablet as directed OrallyActive ibuprofen 800 MG tablet TAKE 1 TABLET FOUR TIMES DAILY Oral for 30Active lamoTRIgine (LaMICtal) 200 MG tablet TAKE 3 TABLETS BY MOUTH EVERY DAY Oral for 30Active lubiprostone (Amitiza) 24 MCG capsule TAKE 1 CAPSULE BY MOUTH TWICE DAILY Oral for 30Active metFORMIN (Glucophage) 500 MG tablet TAKE 2 TABLETS TWICE DAILY Oral for 30Active milnacipran (Savella) 100 mg tablet TAKE 1 TABLET BY MOUTH TWICE DAILY Oral for 30Active pioglitazone (Actos) 15 MG tablet TAKE 1 TABLET BY MOUTH EVERY DAY Oral for 30Active predniSONE (Deltasone) 10 MG tablet 1 tablet with food or milk Orally Three times a day for 5 days and twice a day for 3 days for 8 daysActive simvastatin (Zocor) 20 MG tablet TAKE 1 TABLET EVERY DAY Oral for 30Active sucralfate (Carafate) 1 g tablet TAKE 1 TABLET BY MOUTH FOUR TIMES DAILY Oral for 30Active Blood Glucose Monitoring Suppl (True Metrix Meter) w/Device kit USE TO TEST BLOOD SUGAR EVERY DAY03/10/2023ctive budesonide (Pulmicort) 1 MG/2ML nebulizer solution INHALE ONE VIAL ONCE DAILY PER PZKWGRMZI57/01/2023ctive diclofenac (Voltaren) 75 MG EC tablet Take 75 mg by mouth in the morning and 75 mg before bedtime.08/01/2022ctive divalproex (Depakote) 500 MG EC tablet Take 500 mg by mouth in the morning and 500 mg before bedtime.07/18/2022ctive True Metrix Blood Glucose Test test strip test BLOOD SUGAR DAILY03/10/2023ctive hydroCHLOROthiazide (HYDRODiuril) 25 MG tablet Take 25 mg by mouth in the morning.09/08/2022ctive ipratropium-albuterol (Duo-Neb) 0.5-2.5 mg/3 mL nebulizer solution USE 1 VIAL USING NEBULIZER 4 TIMES A DAY03/10/2023ctive Drug [place] Unilet Lancets 33G misc USE ONCE DAILY03/10/2023ctive lisinopril 10 MG tablet Take 10 mg by mouth in the morning.03/09/2023ctive ondansetron (Zofran) 4 MG tablet TAKE 1 TABLET BY MOUTH EVERY 6 HOURS NEEDED FOR NAUSEA AND EKDYYBXP51/03/2023 Active pregabalin (Lyrica) 50 MG capsule Take 50 mg by mouth in the morning and 50 mg before bedtime.06/19/2022ctive promethazine (Phenergan) 25 MG tablet Take 25 mg by mouth every 8 (eight) hours if needed.02/17/2023ctive tiZANidine (Zanaflex) 4 MG tablet TAKE 2 TABLETS BY MOUTH DAILY AT ZQWMFXF5304/11/2022ctive doxepin (SINEquan) 10 MG capsule Take 10 mg by mouth as needed at bedtime for sleep.Active DULoxetine (Cymbalta) [address] capsule Take 60 mg by mouth in the morning. Do not crush or chew. .Active etodolac (Lodine) 400 MG tablet Take 400 mg by mouth 2 (two) times a day as neededActive nortriptyline (Pamelor) 25 MG capsule TAKE 1 CAPSULE BY MOUTH DAILY AT BEDTIMEActive levothyroxine (Synthroid, Levoxyl) 50 MCG tablet 1 (one) time each day at the same time05/17/2024ctive methocarbamol (Robaxin) 500 MG tablet Take 500 mg by mouth every 12 (twelve) hours if xrppad8305/26/2024ctive Myrbetriq 25 MG 24 hr tablet TAKE 1 TABLET BY MOUTH EVERY DAY FOR 30 DAYS06/23/2024ctive vilazodone (Viibryd) 40 mg tablet TAKE 1 TABLET BY MOUTH EVERY DAY WITH FOOD06/19/2024ctive predniSONE (Deltasone) 20 MG tablet Indications:Rib pain on right sideTake 3 tabs for 2 days, 2 tabs for 2 days, 1 tab for 2 days, 1/2 tab for 2 days then stop 13 tablet 5Active Active Problems ProblemNoted DateDiagnosed DateRib pain on right side03/25/2023loating 03/25/2023M type 2 without gwbkraewwjm36/11/7044Sowfxmqtdxll60/11/2023Myopia of both eyes03/24/2023Nuclear senile fakgxizo60/11/2023Open angle with borderline findings, low risk, nuzgormvm76/11/2023Otitis agqrclo3103/24/2023resbyopia 03/24/2023 Encounters DateTypeDepartmentCare KfzwTcnclxhusak82/21/9965Uowtwk25/23/2025Telephone [facility] Medicine [address] [place] [address] Lamar Rose NP 06/05/2025 6:15 PM EDTAncillary Procedure [facility] [address] [facility] [facility] [place] [address] Rib pain on right side06/05/2025 5:40 PM EDTOffice Visit [facility] [address] [facility] [address] [place] [address] Lamar Rose NP Rib pain on right side (Primary Dx); Sprain of costal cartilage, initial vadzkuqrr60/22/2817Rgauvn22/09/2025 1:20 PM EDTOffice Visit [facility] [place] [facility] [address] [place] [phone] Sharon Wilburn, MANAGER DOCUMENT CONTROL Evdqkpfktnjw33/09/2025Travelfrom Last 3 Months Immunizations ImmunizationAdministration DatesNext DueHep A, Adult02/02/2019Influenza, Bggucsrzazk57/10/2017Influenza, injectable, MDCK, preservative free, uhmfbdefqgza19/05/2022,07/04/2020Influenza, injectable, quadrivalent, preservative free07/12/2021,08/30/2014Td (adult), 5 Lf tetanus toxoid, preservative free, hvozwlzc87/20/2021 Family History Medical HistoryRelationNameCommentsliver failureFatherRelationNameStatusComments BrotherAliveFatherDeceasedMotherAlive Social History Tobacco UseTypesPacks/DayYears UsedDateSmoking Tobacco: FormerCigarettes Tobacco Cessation:Counseling Given: Not Answered Comments:>10 years since last smoked Alcohol UseStandard Drinks/WeekCommentsYes0 (1 standard drink = 0.6 oz pure alcohol)caffeine: stackersCommentsUnknownSex and Gender InformationValue Date RecordedSex Assigned at BirthNot on fileLegal QboIufvhf17/15/2023 8:26 PM EDTGender IdentityNot on fileSexual OrientationNot on file Last Filed Vital Signs Vital SignReadingTime TakenCommentsBlood Lyabhrmf975/90006/05/2025 5:46 PM EDT Zcolk703506/05/2025 5:46 PM MUKPivusqqinni30.1 ??C (98.7 ??F)06/05/2025 5:46 PM EDTRespiratory Mnrw213606/05/2025 5:46 PM EDTOxygen Necloqfnlc92%06/05/2025 5:46 PM EDTInhaled Oxygen Concentration--Gniila519 kg (254 lb)06/05/2025 5:46 PM EDT Vhzpjn557.1 cm (5' 5 )03/25/2023 10:35 AM EDTBody Mass Index42.27003/25/2023 10:35 AM EDT Plan of Treatment DateTypeDepartmentCare Team (Latest Contact Info)Lsmcijiudie15/27/2025 2:20 PM EDTOffice Visit [facility] [place] [facility] [address] [place] [phone] Ash Greene MD [address] [place] [address] Health MaintenanceDue DateLast DoneCommentsCT Vvcpvdhmiacd61/22/1978Colonoscopy 1977Colorectal Cancer Oogzmawzp71/22/1978FIT-DNA1977FIT1977 FOBT1977 3885Pflfgsphxwtct03/22/1978Pap Smear1998Cervical Cancer Lgenzgyek57/22/2008HPV/Wzranf9811/05/20078887Gaqnbfkit91/22/2018Influenza Vaccine (#1) 510/01/2022, 07/12/2021, 07/04/2020, Additional history exists Procedures Procedure NamePriorityDate/TimeAssociated DiagnosisCommentsXR RIBS 2 VIEWS RIGHT WITH CHEST UGTGTRRCWUYIOHDMRPX01/22/2025 6:23 PM EDT Rib pain on right side from Last 3 Months Results * XR ribs 2 views right w chest anteroposterior (06/05/2025 6:23 PM EDT) Anatomical RegionLateralityModalityRib, AbdomenRightRadiographic Imaging Specimen (Source)Anatomical Location / LateralityCollection Method / Volume Collection TimeReceived Time06/06/2025 8:53 AM EDT Impressions 06/06/2025 8:55 AM EDT Chronic appearing right sixth and seventh rib deformities. No distinct acute displaced rib fracture. ELECTRONICALLY SIGNED BY: Sylvester Triplett MD Narrative 06/06/2025 8:55 AM EDT EXAMINATION/TECHNIQUE: XR RIBS 2 VIEWS RIGHT WITH CHEST ANTEROPOSTERIOR HISTORY: Right-sided rib pain. No injury. COMPARISON: None RESULT: No consolidation, pleural effusion, or pneumothorax. Normal cardiomediastinal silhouette. ?? Chronic appearing right sixth and seventh rib [...] fracture. ELECTRONICALLY SIGNED BY: Sylvester Triplett MD Authorizing ProviderResult TypeResult StatusLindsay N Milton NPIMG XR PROCEDURES Final Result from Last 3 Months Insurance Care Teams Team MemberRelationshipSpecialtyStart DateEnd Date Hoy, Jesus M, MD PCP - GeneralFamily Medicine03/12/23
--- OUTSIDE RECORDS SUMMARY | 2025-07-06 13:18 | XMS_ITS | CCD ---
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 Role Phone PHYSICIAN, DEFAULT Unavailable Unavailable PHYSICIAN, DEFAULT Unavailable Unavailable Jesus Gonzalez MD Unavailable Beti Bowles Unavailable Elyssa Gomes Unavailable MD Jesus Gonzalez Primary Care Provider [phone] HUMAIRA Cummings Attending Provider MD Jesus Gonzalez Attending Provider MD Elyssa Gomes Attending Provider [phone] MD Jesus Gonzalez Primary Care Provider [phone] MD Jesus Gonzalez Attending Provider MD Elyssa Gomes Attending Provider MD Jesus Gonzalez Primary Care Provider [phone] MD Jesus Gonzalez Attending Provider MD Elyssa Gomes Attending Provider Jesus Gonzalez MD Unavailable DR JESUS GONZALEZ Admitting Unavailable DR JESUS GONZALEZ Primary Care Unavailable DR JESUS GONZALEZ Consulting Unavailable DR JESUS GONZALEZ Attending Unavailable SHAIKH Shauna MENDOSA Consulting Unavailable LIAT MARISCAL Consulting Unavailable DR JESUS GONZALEZ Admitting Unavailable DR JESUS GONZALEZ Primary Care Unavailable DR JESUS GONZALEZ Attending Unavailable Jesus Gonzalez MD Unavailable Russell Shields Unavailable MD Jesus Gonzalez Primary Care Provider [phone] MD Russell Shields Attending Provider MD Jesus Gonzalez Attending Provider Hank ([facility]), MARILEE Platt Attending Provider [phone] Jesus Gonzalez MD Unavailable Jesus Gonzalez MD Primary Care Provider Jesus Gonzalez MD Unavailable Jesus Gonzalez MD Primary Care Provider Jesus Gonzalez MD Primary Care Provider MD Jesus Gonzalez Primary Care Provider MD Jesus Gonzalez Attending Provider MD Zulema Wood Attending Provider PINEDAFRANKLO F Referring Unavailable JESUS GONZALEZ Primary Care Unavailable PINEDAFRANKLO F Referring Unavailable JESUS GONZALEZ Primary Care Unavailable MD Jesus Gonzalez Primary Care Provider MD Jesus Gonzalez Attending Provider MD Jesus Gonzalez Primary Care Provider MD Jesus Gonzalez Attending Provider MD Jesus Gonzalez Primary Care Provider MD Jesus Gonzalez Attending Provider Jesus Gonzalez MD Primary Care Provider Jesus Gonzalez MD Primary Care Provider Self, Referral Attending Provider Unavailable Zulema Wood MD Attending Provider Alessia Broderick MD Attending Provider Jesus Gonzalez MD Primary Care Provider Self, Referral Attending Provider Unavailable Zulema Wood MD Attending Provider Alessia Broderick MD Attending Provider Jesus Gonzalez MD Attending Provider Jesus Gonzalez MD Primary Care Provider Elyssa Gomes MD Attending Provider [phone] Jesus Gonzalez MD Primary Care Provider Jesus Gonzalez MD Primary Care Provider Elyssa Gomes MD Attending Provider Jesus Gonzalez MD Attending Provider [place], Zulema Unavailable UnavailJesus Ko MD Primary Care Provider [phone] Elyssa Gomes MD Attending Provider Jesus Gonzalez MD Attending Provider Jesus Gonzalez MD Primary Care Provider Krishan Nuñez DO Attending Provider [phone] Darrick MCGHEE, Andrius Vytcarolee Attending Unavailable Giedraitis , Andrius Vytautviviane Attending Unavailable Giedraitis , Andrius Vytautviviane Attending Unavailable Giedraitis , Andrius Vytautas Attending Unavailable Giedraitis , Andrius Vytautas Attending Unavailable Giedraitis , Andrius Vytautas Attending Unavailable Mayda Hendrix APRN Emergency Provider [place], Zulema Unavailable UnavailYOLA Marsh Attending Unavailable LAMAR DORSEY Attending Unavailable ESTEVAN DE LA O Attending Unavailable LAMAR DORSEY Referring Unavailable PINEDAERIK Attending Unavailable HOY, JESUS M Primary Care Unavailable HOY, JESUS M Primary Care Unavailable STEPHANIE MOY Attending Unavailable ZULEMA WOOD Attending Unavailable HOY, JESUS M Primary Care Unavailable HOY, JESUS M Primary Care Unavailable RACHELE FENTON Attending Unavailable HOY, JESUS M Primary Care Unavailable PINEDA, ERIK F Admitting Unavailable PINEDA, ERIK F Attending Unavailable PINEDA, ERIK F Referring Unavailable HOY, JESUS M Primary Care Unavailable HOY, JESUS M Primary Care Unavailable ZULEMA WOOD Referring Unavailable PINEDA, ERIK F Referring Unavailable HOY, JESUS M Primary Care Unavailable MEHUL MARTIN Referring Unavailable HOY, JESUS M Primary Care Unavailable HOY, JESUS M Primary Care Unavailable PINEDA, ERIK F Attending Unavailable HOY, JESUS M Primary Care Unavailable RACHELE FENTON Attending Unavailable HOY, JESUS M Primary Care Unavailable HOY, JESUS M Primary Care Unavailable ZULEMA WOOD Attending Unavailable HOY, JESUS M Primary Care Unavailable Jesus Gonzalez MD Primary Care Provider Damaris MOSQUEDA-CChantal Attending Provider [phone] Hoy, Jesus M Admitting Unavailable Hoy, Jesus M Attending Unavailable Hoy, Jesus M Primary Care Unavailable Krishan Nuñez Admitting Unavailable Krishan Nuñez Attending Unavailable Hoy, Jesus M Primary Care Unavailable Hoy, Jesus M Admitting Unavailable HoyJesus M Attending Unavailable Hoy, Jesus M Primary Care Unavailable Hoy, Jesus M Admitting Unavailable HoJesus herbert M Attending Unavailable Carlos, Jesus M Primary Care Unavailable Elyssa Gomes Admitting Unavailable Elyssa Gomes Attending Unavailable Hoy, Jesus M Primary Care Unavailable Luisy, Jesus M Admitting Unavailable Jesus Gonzalez M Attending Unavailable Jesus Gonzalez M Primary Care Unavailable Alessia Broderick Admitting Unavailable Alessia Broderick Attending Unavailable Hoy, Jesus M Primary Care Unavailable Zulema Wood Admitting Unavailable Zulema Wood Attending Unavailable Hoy, Jesus M Primary Care Unavailable Self, Referral Admitting Unavailable Self, Referral Attending Unavailable Luisy, Jesus M Primary Care Unavailable Mayda Hendrix Admitting Unavailable Mayda Hendrix Attending Unavailable Hoy, Jesus M Primary Care Unavailable Chantal Ocampo Admitting Unavailable Chantal Ocampo Attending Unavailable Hoy, Jesus M Primary Care Unavailable Hoy, Jesus M Admitting Unavailable Hoy, Jesus M Attending Unavailable Hoy, Jesus M Primary Care Unavailable Hoy, Jesus M Admitting Unavailable Hoy, Jesus M Attending Unavailable Luisy, Jesus M Primary Care Unavailable Jesus Gonzalez MD Primary Care Unavailable Jonathan Mayberry DMD Attending Unavailable Medications Current Medications MedicationDrug Class(es)DatesSig (Normalized)Sig (Original)acetaminophen 325 mg oral tablet (16 sources)Start: 14-14-4538yfue 2 tablets enteral route every four hours as neededacetaminophen (TYLENOL) 325 mg tablet 2 tablets by ORAL/FEEDING TUBE route every 4 hours as needed for pain. 02/23/2025 Activeacetaminophen 300 mg / butalbital 50 mg / caffeine 40 mg oral capsule (20 sources)Barbiturate, Central Nervous System Stimulant, MethylxanthineStart: 88-58-3927scbm 1 capsule by mouth every four to six hours as neededStart: 02-18-2021 End: 93-13-9320ymbd 1 tablet by mouth every four hours as needed, then take 4 tablets by mouth once daily as neededacetaminophen 325 mg-caffeine 40 mg- butalbital 50 mg (FIORICET) per tablet Take 1 tablet by mouth every four hours as needed Max 4 per day 0 02/18/2021 06/30/2023 Discontinued (Course of therapy completed)take 1 tablet by mouth four times daily as needed for headache vsyyfjrnyx-wgazbvkmbmbfv-jgzqkbfq 50-325-40 MG tablet TAKE 1 TABLET BY MOUTH FOUR TIMES DAILY NEEDED FOR HEADACHE Oral for 15 Active End: 53-33-4773pxregsxutublu 325 mg-caffeine 40 mg-butalbital 50 mg (FIORICET) per 15 mL oral liquidtake 1 capsule by mouth every four hoursFioricet 50-300-40 MG 1 capsule as needed Orally every 4 hrs ActiveComment on above:Take 1 tablet by mouth every four hours as needed Max 4 per dayacetaminophen 325 mg / HYDROcodone bitartrate 5 mg oral tablet (20 sources)Opioid AgonistStart: 24-71-6462xlfz 1 tablet by mouth every four to six hours as needed for painalbuterol 0.83 mg/ml inhalation solution (20 sources)beta2-Adrenergic AgonistStart: 16-13-3684fwpb 2.5 mg by inhalation four times daily as neededtake 1 tablet by mouth every eight hoursAlbuterol Sulfate 4 MG 1 tablet Orally Three times a day Activealbuterol 0.833 mg/ml / ipratropium bromide 0.167 mg/ml inhalation solution (20 sources)Anticholinergic, beta2-Adrenergic AgonistStart: 03-10-2023 ipratropium-albuterol (Duo-Neb) 0.5-2.5 mg/3 mL nebulizer solution USE 1 VIAL USING NEBULIZER 4 TIMES A DAY 03/10/2023 Activeipratropium-albuterol (DUONEB) 0.5 mg-3 mg(2.5 mg base)/3 mL nebu Activetake 3 mL by inhalation every six hours as neededIpratropium-Albuterol 0.5-2.5 (3) MG/3ML 3 ml as needed Inhalation every 6 hrs Activeamoxicillin 875 mg / clavulanate 125 mg oral tablet (20 sources)Penicillin-class AntibacterialStart: 07-13-2024 End: 47-26-4030ndoj 1 tablet by mouth in the morningamoxicillin-clavulanate (Augmentin) 875-125 MG tablet Indications: Tooth infection Take 1 tablet (875 mg) by mouth in the morning and 1 tablet (875 mg) before bedtime. Do all this for 10 days. 20 tablet 07/13/2024 07/23/2024 ActiveStart: 05-16-2019 End: 99-55-0285gvlr 1 tablet by mouth twice dailyAmoxicillin-Pot Clavulanate (Augmentin) 875-125 mg tablet Discontinued 1 TAB PO Twice daily 03 07May 16, 2019 12:00am September 11, 2020 7:25amStart: 10-09-2017 End: 64-92-0382ippb 1 tablet by mouth twice dailyAmoxicillin-Pot Clavulanate (Augmentin) 875-125 mg tablet Discontinued 1 TAB PO Twice daily 03 07October 09, 2017 1:00am October 28, 2018 12:18pmaspirin 325 mg oral tablet (20 sources)Platelet Aggregation Inhibitor, Nonsteroidal Anti-inflammatory Drug Start: 90-34-0250efmr 1 tablet by mouth twice dailybenzonatate 100 mg oral capsule (20 sources)Non-narcotic AntitussiveStart: 76-48-3390pkfd 2 capsules by mouth every four hours as needed for coughStart: 71-04-4808knkm 200 mg by mouth every four hoursBenzonatate Active 200 MG PO Q4H October 10, 2021 1:00ambenzonatate (TESSALON PERLES ORAL) Activetake 1 capsule by mouth three times daily as needed Tessalon Perles 100 MG 1 capsule as needed Orally Three times a day Active benzonatate (TESSALON PERLES ORAL)Blood Glucose Monitoring Suppl (True Metrix Meter) w/Device kit (7 sources)Start: 34-43-9242Ltqap Glucose Monitoring Suppl (True Metrix Meter) w/Device kit USE TO TEST BLOOD SUGAR EVERY DAY 03/10/2023 Activebrexpiprazole 2 mg oral tablet (20 sources)Atypical AntipsychoticStart: 10-28-2018 End: 25-76-8238hvpi 1 tablet by mouth once dailyComment on above:Take 2 mg by mouth once daily.budesonide 0.5 mg/ml inhalation suspension (20 sources)CorticosteroidStart: 09-11-2020 End: 89-62-3289onmj 1 mg by inhalation once daily in the morningtake 4 mL by inhalation four times dailyPulmicort 1 MG/2ML 4 ml Inhalation Four times a day ActiveComment on above:INHALE 1 (ONE) vial via NEBULIZER ONCE DAILYdapagliflozin 5 mg oral tablet (20 sources)Sodium-Glucose Cotransporter 2 InhibitorStart: 12-18-2018 End: 01-85-6707ptxv 1 tablet by mouth once dailyComment on above:Take 5 mg by mouth once daily.dexamethasone 2 mg oral tablet (12 sources)CorticosteroidStart: 02-22-2025 End: 86-70-0380yczr 4 tablets by mouth twice daily at mealtime, then take 3 tablets by mouth twice daily at mealtime, then take 2 tablets by mouth twice daily at mealtime, then take 1 tablet by mouth twice daily atmealtime, then take 1 tablet by mouth once daily at breakfastdexAMETHasone (DECADRON) 2 mg tablet Take 4 tablets by mouth two times a day with meals for 1 day, THEN 3 tablets two times a day with meals for 2 days, THEN 2 tablets two times a day with meals for 2 days, THEN 1 tablet two times a day with meals for 1 day, THEN 1 tablet daily with breakfast for 1day. 31 tablet 02/22/2025 10:55 AM EDT 02/22/2025 03/01/2025 ActiveStart: 01-04-2021 End: 36-52-1235lmyp 1 tablet by mouth once dailydexAMETHasone (DECADRON) 6 mg tablet TAKE 1 TABLET BY MOUTH EVERY DAY FOR 6 DAYS 0 01/04/2021 06/26/2023 DiscontinuedComment on above:TAKE 1 TABLET BY MOUTH EVERY DAY FOR 6 DAYS dexlansoprazole 60 mg delayed release oral capsule (20 sources)Proton Pump InhibitorStart: 12-22-2019 End: 71-80-4982zazv 1 capsule by mouth twice dailydexlansoprazole (Dexilant) [address] capsule 1 capsule 1 (one) time each day at the same time. ActiveComment on above:Take 1 capsule by mouth twice daily.Dexlansoprazole (Dexilant) 60 mg capsule,biphase delayed releas (20 sources)Start: 35-41-6556fatt 1 capsule by mouth twice dailyDexlansoprazole (Dexilant) 60 mg capsule,biphase delayed releas Active 60 MG PO Twice daily 2021 12:00amStart: 08-31-4390hcon 1 capsule by mouth twice daily Dexlansoprazole (Dexilant) 60 mg capsule,biphase delayed releas Active 60 MG PO Twice daily 2021 1:00amdiclofenac sodium 0.01 mg/mg topical gel (20 sources)Nonsteroidal Anti-inflammatory DrugStart: 14-23-9951Favve: 72-22-7203Oldaxmijqc Sodium (Voltaren Arthritis Pain) 1 % gel Active 4 GM TOPICAL Four times daily February 01, 2025 12:00am apply to single knee, ankle, foot; for foot includes sole/toes/top of footStart: 01-27-2020 End: 90-45-8418rfak 1 tablet by mouth in the morningdiclofenac (Voltaren) 75 MG EC tablet Take 75 mg by mouth in the morning and 75 mg before bedtime. 1 10/01/2021 ActiveComment on above:Take 75 mg by mouth twice daily.docusate sodium 50 mg / sennosides, longterm 8.6 mg oral tablet (17 sources)Start: 97-86-8657hwyu 1 tablet by mouth every twelve hours as needed senna-docusate (SENNA-S) 8.6-50 mg per tablet Take 1 tablet by mouth two times a day as needed for constipation. 100 tablet 02/22/2025 10:55 AM EDT 02/22/2025 Activetake 1 tablet by mouth every twelve hoursSenokot S 8.6-50 MG 1 tablet as needed Orally Twice a day Activedoxepin hydrochloride 10 mg oral capsule (20 sources)Tricyclic AntidepressantStart: 74-43-9699kcsc 1 capsule by mouth three times daily as needed for anxietytake 1 capsule by mouth every twenty-four hoursDoxepin HCl 10 MG 1 capsule at bedtime Orally Once a day Activedoxycycline hyclate 100 mg oral tablet (20 sources)Tetracycline-class DrugStart: 20-36-3016cank 1 tablet by mouth twice dailyDULoxetine 30 mg delayed release oral capsule (20 sources)Serotonin and Norepinephrine Reuptake InhibitorStart: 91-83-6642qsbg 1 capsule by mouth once dailyDULoxetine DR (CYMBALTA) 30 mg capsule Indications: Fibromyalgia TAKE 1 CAPSULE BY MOUTH EVERY DAY ALONG WITH THE 60MG CAPSULE TO EQUAL 90MG A DAY 90 capsule 2 05/17/2025 ActiveStart: 05-30-2024 End: 21-50-9542eary 1 tablet by mouth once dailyDULoxetine (CYMBALTA) 30 mg capsule Indications: Fibromyalgia Take one tab along with the 60mg tab to equal 90mg po qd 30 capsule 6 10/10/2024 ActiveStart: 10-01-2023 End: 12-27-2032sfsc 1 capsule by mouth once dailyDULoxetine (CYMBALTA) 60 mg capsule Indications: Fibromyalgia TAKE 1 CAPSULE BY MOUTH EVERY DAY 90 capsule 2 03/06/2025 ActiveStart: 11-03-2022 End: 65-60-6641frbc 1 capsule by mouth once dailyDULoxetine (CYMBALTA) 60 mg capsule Take 1 capsule by mouth once daily. 30 capsule 3 04/13/2023 ActiveStart: 09-29-2022 End: 06-32-6723nzwj 1 capsule by mouth once dailyDULoxetine (CYMBALTA) 30 mg capsule Take 1 capsule by mouth once daily. 30 capsule 3 09/29/2022 06/26/2023 DiscontinuedComment on above:Take 1 capsule by mouth once daily.TAKE 1 CAPSULE BY MOUTH EVERY DAYetodolac 400 mg oral tablet (20 sources)Nonsteroidal Anti-inflammatory DrugStart: 09-09-2024 End: 96-63-3204jtrt 1 tablet by mouth every twelve hours for arthritis and arthritisetodolac (LODINE) 400 mg tablet Indications: Inflammatory arthritis TAKE 1 TABLET BY MOUTH TWICE A DAY NEEDED 60 tablet 3 02/27/2025 ActiveStart: 09-28-2023 End: 47-52-1223klfm 1 tablet by mouth twice daily as neededetodolac (LODINE) 400 mg tablet One tab po bid prn 60 tablet 3 01/27/2024 08/28/2024 Discontinued Comment on above:One tab po bid bhc431 actuat formoterol fumarate 0.005 mg/actuat / mometasone furoate 0.2 mg/actuat metered dose inhaler (20 sources)Corticosteroid, beta2-Adrenergic AgonistStart: 57-02-4109expm 1 puff(s) by inhalation twice daily End: 89-44-7032dtvbvrqxjv-formoterol (DULERA) 100-5 mcg/actuation inhaler glycopyrrolate 1 mg oral tablet (20 sources)Start: 13-12-4616vvdc 2 tablets by mouth twice dailyglycopyrrolate (ROBINUL) 1 mg tablet Take 2 mg by mouth twice daily. 02/16/2021 ActiveStart: 10-28-2018 End: 58-94-9856mnvo 1 tablet by mouth once dailyStart: 47-20-8314guct 3 mg by mouth once dailyGlycopyrrolate Active 3 MG PO Daily October 28, 2018 1:00am Comment on above:Take 2 mg by mouth twice daily.hydroCHLOROthiazide 25 mg oral tablet (20 sources)Thiazide DiureticStart: 09-11-2020 End: 58-56-0840jquh 1 tablet by mouth once dailyComment on above:Take 25 mg by mouth once daily.hydroxychloroquine sulfate 200 mg oral tablet (20 sources)Antimalarial, Antirheumatic AgentStart: 07-04-2021 End: 33-89-2158kryh 1 tablet by mouth twice dailyComment on above:Take 1 tablet by mouth twice daily.TAKE 1 TABLET BY MOUTH TWICE DAILYTake 1 tablet by mouth two times a day.ipratropium bromide 0.2 mg/ml inhalation solution (20 sources)AnticholinergicStart: 88-71-6913gvrs 0.5 mg by inhalation every six hours as neededStart: 95-57-6393mmqu 0.5 mg by inhalation every six hours Ipratropium [place] Active 0.5 MG INHALATION Q6H September 11, 2020 1:00amiv contrast (will be provided with radiology test) (2 sources)Start: 03-02-2025 End: 68-66-3139uregla 1 dose intravenously onceiv contrast (will be provided with radiology test) [...] administration guidelines link 1 each 03/02/2025 03/03/2025 ActiveStart: 01-19-2024 End: 01-72-5652ybrdlr 1 dose intravenously once, then inject 1 dose intravenously onceiv contrast (will be provided with radiology test) MRI Skull Base Inject, intravenously, once for 1dose. No IV access, insert saline lock prior [...] guidelines link. 1 Each 0 01/19/2024 01/20/2024 ActivelamoTRIgine 200 mg oral tablet (20 sources)Mood Stabilizer, Anti-epileptic AgentStart: 79-98-0185ivsn 3 tablets by mouth once dailyStart: 24-31-9810icqr 600 mg by mouth once dailyLamotrigine Active 600 MG PO Daily September 12, 2017 1:00amtake 1 tablet by mouth every twenty-four hourslamoTRIgine 200 MG 1 tablet on the tongue and allow to dissolve Orally Once a day ActiveComment on above:TAKE 3 TABLETS EVERY DAYlevothyroxine sodium 0.05 mg oral tablet (20 sources)l-ThyroxineStart: 68-56-3234hgqbcwifxdewm (Synthroid, Levoxyl) 50 MCG tablet 1 (one) time each day at the same time 05/17/2024 Activelisinopril 10 mg oral tablet (20 sources)Angiotensin Converting Enzyme InhibitorStart: 08-46-9769gsnw 1 tablet by mouth once dailylubiprostone 0.024 mg oral capsule (20 sources)Chloride Channel ActivatorStart: 88-95-6100jtpk 1 capsule by mouth twice dailyStart: 85-14-5966zedj 1 capsule by mouth twice dailyLubiprostone (Amitiza) 24 mcg capsule Active 24 MCG PO Twice daily October 28, 2018 12:00amStart: 23-28-4452qdyr 1 capsule by mouth twice dailyLubiprostone (Amitiza) 24 mcg capsule Active 24 MCG PO Twice daily October 28, 2018 1:00am take 1 capsule by mouth twice daily at mealtimeAmitiza 24 MCG 1 capsule with food and water Orally Twice a day ActiveComment on above:Take 24 mcg by mouth twice daily.1 ml medroxyPROGESTERone acetate 150 mg/ml injection (20 sources)ProgestinmedroxyPROGESTERone (DEPO-PROVERA) 150 mg/mL injection Inject 150 mg intramuscularly every 12 weeks. ActivemetFORMIN hydrochloride 500 mg oral tablet (20 sources)BiguanideStart: 51-60-6783lpzh 2 tablets by mouth twice dailyStart: 00-59-8365hvxi 1000 mg by mouth twice dailyMetformin Active 1000 MG PO Twice daily September 12, 2017 1:00ammetFORMIN (GLUCOPHAGE) 500 mg tablet Active methocarbamol 500 mg oral tablet (20 sources)Muscle RelaxantStart: 03-13-2025 End: 42-86-0002bfjq 1 tablet by mouth twice daily as neededmethocarbamol (ROBAXIN) 500 mg tablet Indications: Chronic daily headache TAKE 1 TABLET BY MOUTH TWICE A DAY NEEDED 45 tablet 2 05/18/2025 ActiveStart: 02-22-2025 End: 87-76-4344hhsm 1 tablet by mouth four times daily as needed for pain methocarbamol (ROBAXIN) 500 mg tablet Indications: Chronic daily headache Take 1 tablet by mouth four times a day as needed (muscle spasm, jaw pain). 02/22/2025 03/13/2025 DiscontinuedStart: 10-03-2024 End: 51-40-0597noic 1 tablet by mouth twice daily as neededmethocarbamol (ROBAXIN) 500 mg tablet Indications: Chronic daily headache TAKE 1 TABLET BY MOUTH TWICE A DAY NEEDED 45 tablet 2 12/29/2024 ActiveStart: 05-26-2024 methocarbamol (Robaxin) 500 MG tablet Take 500 mg by mouth every 12 (twelve) hours if needed 05/26/2024 ActiveStart: 02-05-2024 End: 96-24-3610qnnn 1 tablet by mouth twice daily as neededmethocarbamol (ROBAXIN) 500 mg tablet Indications: Chronic daily headache Take 1 tablet by mouth two times a day as needed. 45 tablet 2 05/26/2024 ActiveMetoprolol (14 sources)beta-Adrenergic BlockerToprol XL Sbwear98 hr mirabegron 25 mg extended release oral tablet (20 sources)beta3-Adrenergic AgonistStart: 97-11-8933igko 1 tablet by mouth once dailyMyrbetriq 25 MG 24 hr tablet TAKE 1 TABLET BY MOUTH EVERY DAY FOR 30 DAYS 06/23/2024 Activetake 50 mg by mouth once dailymirabegron (MYRBETRIQ) 50 mg Tb24 Take 50 mg by mouth once daily. Activemupirocin 0.02 mg/mg topical ointment (6 sources)RNA Synthetase Inhibitor AntibacterialStart: 02-14-2025 End: 79-04-8253qqzzkxfkn (BACTROBAN) 2 % ointment two times a day for 5 days. Apply 0.5 inch with cotton swab (Q-tip) to each nostril in the morning and evening for 5 days prior to and including day of surgery. 22 g 02/14/2025 02/19/2025 Activenortriptyline 10 mg oral capsule (20 sources)Tricyclic AntidepressantStart: 15-84-2985oqur 1 capsule by mouth once daily at bedtimenortriptyline (PAMELOR) 10 mg capsule Indications: Chronic daily headache Take 1 capsule by mouth daily at bedtime. 30 capsule 3 03/13/2025 ActiveStart: 01-06-2025 End: 36-30-5639cwmxcukxbhrqs (PAMELOR) 10 mg capsule Indications: Chronic daily headache TAKE 1 CAPSULE AT BEDTIMEFOR 2 WEEKS, THEN 1 CAPSULE EVERY OTHER DAY FOR 1 WEEK THEN STOP 90 capsule 1 01/26/2025 02/14/2025Discontinued (Course of therapy completed)Start: 43-96-0205Vzbzplxrcvrvv 25 mg capsule Active 25 MG PO November 25, 2023 12:00amStart: 06-26-2023 End: 63-94-9351Phxxitj on above:Take 1 capsule by mouth daily at bedtime. 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 3 tablet 02/22/2025 10:55 AM EDT 02/22/2025 02/28/2025 ActiveStart: 10-09-2017 End: 64-45-9245oexq 1 tablet by mouth four times daily as needed for pain Oxycodone 30 mg Tablet Discontinued 30 MG PO Four times daily as needed for Pain October 09, 20171:00am October 28, 2018 12:19pmStart: 09-12-2017 End: 25-70-2400ygdt 1 tablet by mouth twice daily, then take 1 tablet by mouth every twelve hoursOxycodone (Oxycontin) 40 mg tablet extended release 12hr Discontinued 40 MG PO Twice daily 2016 1:00am October 28, 2018 12:19pmpioglitazone 15 mg oral tablet (20 sources)Peroxisome Proliferator Receptor alpha Agonist, Peroxisome Proliferator Receptor gamma Agonist, ThiazolidinedioneStart: 40-66-5160hswv 1 tablet by mouth once dailyStart: 09-12-2017 End: 83-10-3781Gvknvxjdentm 15 mg tablet Discontinued September 12, 2017 1:00am October 09, 2017 10:47pmStart: 09-12-2017 End: 40-39-9030Fevdwmwcbgyt 15 mg tablet Discontinued TABLET September 12, 2017 1:00am October 09, 2017 10:47pmpredniSONE 20 mg oral tablet (20 sources)Start: 53-19-4431yshkjmUJJD (Deltasone) 20 MG tablet Indications: Rib pain on right side Take 3 tabs for 2 days, 2 tabs for 2 days, 1 tab for 2 days, 1/2 tab for 2 days then stop 13 tablet 06/05/2025 ActiveStart: 09-09-2024 End: 75-35-9382jlyy 1-2 tablets by mouth once dailypredniSONE (DELTASONE) 5 mg tablet Indications: Inflammatory arthritis TAKE 1 TO 2 TABLETS BY MOUTHEVERY DAY 60 tablet 3 02/27/2025 ActiveStart: 12-11-2022 End: 60-88-4493hljw 1-2 tablets by mouth once dailypredniSONE (DELTASONE) 5 mg tablet TAKE 1 TO 2 TABLETS BY MOUTH EVERY DAY 60 tablet 3 03/25/2024 08/28/2024 DiscontinuedStart: 11-11-2019 End: 98-25-9725hgbj 2 tablets by mouth once dailyPrednisone 20 mg tablet Discontinued 40 MG PO Daily 10 November 11, 2019 1:00am September 11, 2020 7:28amStart: 11-11-2019 End: 65-55-0843ahxf 40 mg by mouth once dailyPrednisone Discontinued 40 MG PO Daily 06 18November 11, 2019 1:00am September 11, 2020 7:28amStart: 12-18-2018 End: 65-17-6169nliy 1 tablet by mouth once daily at mealtimePrednisone 50 mg tablet Discontinued 50 MG PO Daily 01 16December 18, 2018 12:00am September 11, 20207:28am administer with food or milkpredniSONE (Deltasone) 10 MG tablet 1 tablet with food or milk Orally Three times a day for 5 days and twice a day for 3 days for 8 days ActiveComment on above:1-2 tabs po qdpregabalin 50 mg oral capsule (12 sources)Start: 21-22-8230qnst 1 capsule by mouth in the morningpregabalin (Lyrica) 50 MG capsule Take 50 mg by mouth in the morning and 50 mg before bedtime. 06/19/2022 Activetake 1 capsule by mouth every twenty-four hoursLyrica 100 MG 1 capsule Orally Once a day Not-Takingpromethazine hydrochloride 25 mg oral tablet (7 sources)PhenothiazineStart: 04-40-6099eyar 1 tablet by mouth every eight hours as neededpromethazine (Phenergan) 25 MG tablet Take 25 mg by mouth every 8 (eight) hours if needed. 02/17/2023 ActiveraNITIdine 300 mg oral tablet (20 sources)Histamine-2 Receptor AntagonistStart: 83-77-2140epuq 1 tablet by mouth once daily as neededroflumilast 0.5 mg oral tablet (20 sources)Phosphodiesterase 4 InhibitorStart: 09-12-2017 End: 02-78-8467wedt 1 tablet by mouth once dailytake 1 tablet by mouth every twenty-four hoursDaliresp 500 MCG 1 tablet Orally Once a day Activesimvastatin 20 mg oral tablet (20 sources)HMG-CoA Reductase InhibitorStart: 02-53-1859deks 1 tablet by mouth once dailyComment on above:Take 20 mg by mouth once daily.sulfamethoxazole 800 mg / trimethoprim 160 mg oral tablet (3 sources)Dihydrofolate Reductase Inhibitor Antibacterial, Sulfonamide AntimicrobialStart: 03-15-2025 End: 72-02-6819emqd 1 tablet by mouth twice dailysulfamethoxazole-trimethoprim (BACTRIM DS) 800-160 mg per tablet Take 1 tablet by mouth two times aday for 5 days. 10 tablet 03/20/2025 03/25/2025 ActivetiZANidine 4 mg oral tablet (20 sources)Central alpha-2 Adrenergic AgonistStart: 06-26-2023 End: 97-66-7978cbav 1 tablet by mouth every eight hours as neededtiZANidine (ZANAFLEX) 4 mg tablet Indications: Chronic daily headache take 1 tablet by mouth every 8 hours as needed 60 tablet 3 02/02/2024 02/05/2024 Discontinued (Side Effects)Start: 29-73-4286lmnq 2 tablets by mouth once daily at bedtime tiZANidine (Zanaflex) 4 MG tablet TAKE 2 TABLETS BY MOUTH DAILY AT BEDTIME 04/11/2022 ActiveComment on above:Take 1 tablet by mouth every 8 hours as needed.topiramate 50 mg oral tablet (20 sources)Start: 31-87-9027gmnp 1 tablet by mouth once dailytraMADol hydrochloride 50 mg oral tablet (5 sources)Opioid AgonistStart: 57-22-3246uruv 1 tablet by mouth every four to six hours as needed for paintraMADol HCl 50 MG 1 tablet as needed for pain Orally every 4-6 hours for 7 days prn Jul, Activedivalproex sodium 500 mg delayed release oral tablet (7 sources)Mood Stabilizer, Anti-epileptic AgentStart: 93-90-0973oqze 1 tablet by mouth in the morningdivalproex (Depakote) 500 MG EC tablet Take 500 mg by mouth in the morning and 500 mg before bedtime. 07/18/2022 Activevilazodone hydrochloride 40 mg oral tablet (20 sources)Start: 09-12-2017 End: 66-81-3713eupn 1 tablet by mouth once dailyComment on above:Take 40 mg by mouth once daily.Water Pills - (18 sources)Water Pills - as directed Orally Active Completed/Discontinued Medications MedicationDrug Class(es)DatesSig (Normalized)Sig (Original)acetaminophen 325 mg / oxyCODONE hydrochloride 5 mg oral tablet (20 sources)Opioid AgonistStart: 09-18-2021 End: 76-21-8056kavh 1 tablet by mouth every four to six hours as needed for pain Oxycodone-Acetaminophen (Percocet) 5-325 mg tablet Discontinued 1 TAB PO EVERY 4-6 HOURS as needed for pain 10 September 18, 2021 October 02, 2021 4:22am amylase 857408 unt / lipase 75279 unt / protease 50922 unt delayed release oral capsule (20 sources)Start: 09-12-2017 End: 74-45-2061vfab 99160-95012 capsules by mouth three times daily Sruxqq-Ltmhnptm-Ysmhqyo (Pork) (Creon) 24,000-76,000 -120,000 unit capsule,delayed release(DR/EC) Discontinued 1 TAB PO Three times daily September 12, 2017 1:00am October 28, 2018 12:18pmazithromycin 500 mg oral tablet (20 sources)Macrolide AntimicrobialStart: 10-11-2017 End: 02-01-4024rlws 1 tablet by mouth once dailyAzithromycin 500 mg tablet Discontinued 500 MG PO Daily 5 October 11, 2017 1:00am October 1:00am October 16, 2017 1:04amcanagliflozin 100 mg oral tablet (20 sources)Sodium-Glucose Cotransporter 2 InhibitorStart: 09-12-2017 End: 30-89-2417vsbm 1 tablet by mouth once dailyCanagliflozin 100 tablet Discontinued 100 MG PO Daily September 12, 2017 1:00am December 18, 2018 1:46pm carisoprodol 350 mg oral tablet (20 sources)Muscle RelaxantStart: 09-12-2017 End: 82-13-4863hxrm 1 tablet by mouth four times daily as needed for pain Carisoprodol 350 mg tablet Discontinued 350 MG PO Four times daily as needed for Pain September 12, 2017 1:00am October 28, 2018 12:18pmcephalexin 500 mg oral tablet (20 sources)Cephalosporin AntibacterialStart: 09-18-2021 End: 76-38-1696nrbq 1 tablet by mouth four times dailyCephalexin 500 mg tablet Discontinued 500 MG PO Four times daily September 18, 2021 1:00am October 10, 2021 12:45pmGel-Syn (20 sources)Start: 21-43-5611Ces-Syn Feb, 2 mLStart: 07-89-8653Rvj-Syn Feb, 2 mLStart: 96-28-3856Xze-Syn Feb, 2 mLhydrOXYzine pamoate 25 mg oral capsule (20 sources)AntihistamineStart: 09-12-2017 End: 79-94-4553vygn 1 capsule by mouth four times daily as needed for anxiety Hydroxyzine Pamoate 25 mg capsule Discontinued 25 MG PO Four times daily as needed for Anxiety September 12, 2017 1:00am September 11, 2020 7:26am ibuprofen 600 mg oral tablet (20 sources)Nonsteroidal Anti-inflammatory DrugStart: 09-18-2021 End: 45-93-6084vznc 4 tablets by mouth every twenty-four hours for painIbuprofen 600 mg tablet Discontinued 600 MG PO EVERY 4-6 HOURS as needed for pain 20 September 1:00am October 10, 2021 12:49pm do not exceed 4 doses in a 24 hour periodStart: 36-03-7376epiy 1 tablet by mouth every six hours as needed for paintake 1 tablet by mouth four times dailyibuprofen 800 MG tablet TAKE 1 TABLET FOUR TIMES DAILY Oral for 30 Active2 ml ketorolac tromethamine 30 mg/ml cartridge (8 sources)Nonsteroidal Anti-inflammatory Drug, Cyclooxygenase InhibitorStart: 06-05-2025 End: 80-75-757586 mg, Intramuscular, Once, On Thu06/05/25 at 1830, For 1 dose, Max daily dose: 120 mg. Max duration: 5 days totalStart: 06-05-2025 End: 93-61-246627 mg, Intramuscular, Once, On Thu06/05/25 at 1830, For 1 dose, Max daily dose: 120 mg. Max duration: 5 days totalStart: 06-05-2025 End: 80-24-4247qpkufjwmd (Toradol) injection 60 mgStart: 06-05-2025 End: 64-04-4906dixdsxwdq (Toradol) injection 60 mgStart: 05-23-2025 End: 65-01-246694 mg, Intramuscular, Once, On Thu05/23/25 at 1400, For 1 dose, Max daily dose: 120 mg. Max duration: 5 days totalStart: 05-23-2025 End: 87-60-7083ogmlzsosq (Toradol) injection 60 mgStart: 05-23-2025 End: 64-70-337523 mg, Intramuscular, Once, On Thu05/23/25 at 1400, For 1 dose, Max daily dose: 120 mg. Max duration: 5 days totalStart: 05-23-2025 End: 00-18-1933ajguvcvlk (Toradol) injection 60 mglevETIRAcetam 1000 mg oral tablet (3 sources)Start: 02-22-2025 End: 95-25-0436keay 1 tablet by mouth twice dailylevETIRAcetam (KEPPRA) 1,000 mg tablet Take 1 tablet by mouth two times a day for 12 doses. 12 tablet 02/22/2025 10:55 AM EDT 02/22/2025 03/02/2025 Discontinued (Course of therapy completed) levoFLOXacin 500 mg oral tablet (10 sources)Quinolone AntimicrobialStart: 01-04-2021 End: 41-81-1035jekr 1 tablet by mouth once dailylevoFLOXacin (LEVAQUIN) 500 mg tablet Take 500 mg by mouth once daily. 0 01/04/2021 06/26/2023 Discontinued Comment on above:Take 500 mg by mouth once daily.lurasidone hydrochloride 120 mg oral tablet (20 sources)Atypical AntipsychoticStart: 09-12-2017 End: 96-55-0944sgjl 1 tablet by mouth once dailyLurasidone (Latuda) 120 mg tablet Discontinued 120 MG PO Daily September 12, 2017 1:00am October 28, 2018 12:18pmmilnacipran hydrochloride 100 mg oral tablet (20 sources)Serotonin and Norepinephrine Reuptake InhibitorStart: 02-16-2021 End: 08-88-8817wgyw 1 tablet by mouth twice dailySAVELLA 100 mg tab Take 100 mg by mouth twice daily. 0 02/16/2021 06/30/2023 Discontinued (Course of therapy completed)Start: 53-66-9552yqnp 1 tablet by mouth twice dailyComment on above: Take 100 mg by mouth twice daily.pantoprazole 40 mg delayed release oral tablet (20 sources)Proton Pump InhibitorStart: 09-12-2017 End: 82-88-5541nhag 1 tablet by mouth twice dailyPantoprazole 40 tablet,delayed release (DR/EC) Discontinued 40 MG PO Twice daily September 12, 2017 1:00am September 11, 2020 7:28amphentermine hydrochloride 37.5 mg oral tablet (11 sources)Sympathomimetic Amine AnorecticStart: 01-25-2021 End: 76-93-6618zvpv 1 tablet by mouth once dailyPhentermine HCl 37.5 mg tablet Take 37.5 mg by mouth once daily. 0 01/25/2021 06/30/2023 Discontinued (Course of therapy completed)Comment on above:Take 37.5 mg by mouth once daily. sucralfate 1000 mg oral tablet (20 sources)Aluminum ComplexStart: 10-28-2018 End: 11-40-4054cpqc 1 tablet by mouth at bedtimeSucralfate (Carafate) 1 gram tablet Discontinued 1 GM PO Before meals and at bedtime 60 October 02, 2021 1:00am October 10, 2021 12:59pmCarafate 1 GM 1 tablet on an empty stomach Orally PRN ActiveTheraputic Injection (20 sources)Start: 00-92-6146Kdudjklibc Injection Jul, 168 UStart: 04-85-4183Fljdrvence Injection Jul, 380 mgtriamcinolone acetonide 40 mg/ml injectable suspension (20 sources)CorticosteroidStart: 81-76-3525Luypugw-40 January, 20 mgStart: 25-22-7475Fcgseve-40 Sep, 30 mgStart: 63-77-2421Zlberah-40 Mar, 40 mgStart: 87-33-8121Ukyqggm -40 mg Nov, 40 mgStart: 51-47-1243Urnqdtd -40 mg Aug, 20 mgStart: 40-22-9357Qotgtqd -40 mg Jul, 40 mg Start: 37-62-2313Ayccsek -40 mg May, 20 mgStart: 31-27-4922Lxtatfq -40 mg Mar, 40 mgStart: 96-12-3657Uontaxr -40 mg Nov, 40 mgStart: 78-75-6355Iiaxggz -40 mg January, 40 mgStart: 73-59-9642Igwsdxm -40 mg Jun, 40 mgStart: 01-45-4601Vkjashf -40 mg Mar, 40 mgStart: 37-48-0891Zqcozfh -40 mg Nov, Problems Active Problems Problem ClassificationProblemDateDocumented DateEpisodic/ChronicAbdominal pain (20 sources)Upper abdominal pain; Translations: [Upper abdominal pain, unspecified]67-72-0897IhfsitksRflqbbs disorders (20 sources)Anxiety; Translations: [Anxiety disorder, unspecified]Onset: 283707-24-6774AczparpGogaupqlquhy and other appendiceal conditions (20 sources)Acute appendicitis; Translations: [Unspecified acute appendicitis] 15-05-5247PytfdncsWdxdgets (7 sources)Nuclear senile cataract; Translations: [Age-related nuclear cataract, unspecified eye]Onset: 041694-54-9333IlzxlhxAakhxov obstructive pulmonary disease and bronchiectasis (20 sources)Acute exacerbation of chronic obstructive airways disease; Translations: [Chronic obstructive lung disease]Onset: ChronicConditions associated with dizziness or vertigo (6 sources)Dizziness and giddiness; Translations: [Dizziness and giddiness] Onset: 700594-10-9020HghlekxcDljditgnpjikf and procreative management (4 sources)Encounter for surveillance of injectable contraceptive; Translations: [Encounter for Depo-Provera contraception]EpisodicDiabetes mellitus with complications (20 sources)Secondary diabetes mellitus; Translations: [Other specified diabetes mellitus with diabetic autonomic (poly)neuropathy]ChronicDiabetes mellitus without complication (20 sources)Diabetes mellitus type 2 without retinopathy; Translations: [Type 2 diabetes mellitus without complications]Onset: hronic Disorders of lipid metabolism (20 sources)Mixed hyperlipidemia; Translations: [Mixed hyperlipidemia]Onset: 727163-45-3897CuebuijSpicktscc of teeth and jaw (2 sources)Infection of tooth; Translations: [Periapical abscess without sinus] 48-13-6573YijsznpsF Codes: Natural/environment (20 sources)Dog bite - wound; Translations: [Bitten by dog, initial encounter] 64-51-9294TvrnlfqgAtlmfpkedm disorders (20 sources)Gastroesophageal reflux disease; Translations: [Gastro-esophageal reflux disease without esophagitis]Onset: 066527-55-9865WtyxntyQdafdosfi and duodenitis (19 sources)Chronic superficial gastritis; Translations: [Chronic superficial gastritis without bleeding]ChronicGastritis and duodenitis (20 sources)Gastritis; Translations: [Gastritis, unspecified, without bleeding] 10-85-3229KywbvazoAuwhyisrnhmkulay hemorrhage (20 sources)Rectal hemorrhage; Translations: [Hemorrhage of anus and rectum] 70-30-2187KrqdmegmMvvtesif (7 sources)Open angle with borderline findings, low risk, bilateral; Translations: [Open angle with borderlinefindings, low risk]Onset: 03-24-2023 03-46-9377JfjvsznYkfgusfu; including migraine (20 sources)Intractable chronic tension headache; Translations: [Chronic tension-type headache, intractable]Onset: 571788-37-5218MwuvbrsRvrtoyfd; including migraine (11 sources)Medication overuse headache; Translations: [Drug-induced headache, not elsewhere classified, not intractable]72-75-9486LhgbleglHgakqodn; including migraine (1 source)Headache; including migraine; Translations: [Chronic daily headache] Onset: 35-09-5523Kony disorders (1 source)Mood disorders; Translations: [Depression, unspecified depression type]Onset: 50-22-5775Obiqlu and vomiting (20 sources)Nausea; Translations: [Nausea]EpisodicNonspecific chest pain (1 source)Other chest pain; Translations: [Other chest pain]Onset: 06-19-2025 EpisodicOsteoarthritis (20 sources)Arthritis; Translations: [Unspecified osteoarthritis, unspecified site]Onset: 06-05-2021 Resolved: 32-12-1874NbkjhjtVazft aftercare (3 sources)Patient encounter status; Translations: [Encounter for therapeutic drug level monitoring]43-21-6284XyxeizvmPdvbj aftercare (1 source)Surgical follow-up; Translations: [Encounter for follow-up examination after completed treatment for conditions other than malignant neoplasm] 10-86-2994PabpaihhZflrd and unspecified benign neoplasm (19 sources)Neoplasm of meninges; Translations: [Benign neoplasm of meninges, unspecified]Onset: 676559-22-9085KwplfsuXbtwx and unspecified benign neoplasm (20 sources)Intracranial meningioma; Translations: [Benign neoplasm of cerebral meninges]Onset: 173857-49-4991TxnybplGdpah and unspecified benign neoplasm (4 sources)Benign neoplasm of meninges; Translations: [Benign neoplasm of meninges, unspecified]96-48-5734BmtmbrhZukop and unspecified benign neoplasm (3 sources)Benign neoplasm of meninges, unspecified; Translations: [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)]Onset: 58-73-6782Oxlrqxa Other and unspecified benign neoplasm (1 source)Benign neoplasm of cerebral meninges; Translations: [Intracranial meningioma (HCC)]Onset: 44-17-9484KrcvhrjXbjyt bone disease and musculoskeletal deformities (19 sources)Aseptic necrosis of carpal bone; Translations: [Other osteonecrosis of right carpus]ChronicOther bone disease and musculoskeletal deformities (19 sources)Kienbock's disease of adults; 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]ChronicOther bone disease and musculoskeletal deformities (20 sources)Osteochondritis of the carpal lunate; Translations: [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], right hand]37-82-7637JlsliziTeugg bone disease and musculoskeletal deformities (19 sources)Progressive avascular necrosis of lunate; 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]ChronicOther bone disease and musculoskeletal deformities (20 sources)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], right hand; Translations: [Juvenile osteochondrosis of upper extremity]Onset: 06-18-2021 Resolved: 26-54-4482CupckxjEhpwa connective tissue disease (2 sources)Muscle pain; Translations: [Myalgia, unspecified site]EpisodicOther connective tissue disease (19 sources)Tendinitis of wrist; Translations: [Other enthesopathies, not elsewhere classified]EpisodicOther connective tissue disease (19 sources)Radial styloid tenosynovitis; Translations: [Radial styloid tenosynovitis [de [place]erv[place]]]EpisodicOther connective tissue disease (20 sources)Supraspinatus tear; Translations: [Unspecified rotator cuff tear or rupture of right shoulder, not specified as traumatic]62-13-8086WakiuejqXonwb connective tissue disease (6 sources)Unspecified rotator cuff tear or rupture of right shoulder, not specified as traumatic; Translations: [Tear of right supraspinatus tendon M75.101]Onset: 06-05-2021 Resolved: 60-56-8965FiozfhaqCcwyl connective tissue disease (1 source)Bicipital tendinitis, left shoulderEpisodicOther connective tissue disease (1 source)Other specified disorders of tendon, right shoulderEpisodicOther connective tissue disease (20 sources)Biceps tendinitis; Translations: [Bicipital tendinitis, unspecified shoulder]98-25-1535TxicuakkHycyt connective tissue disease (3 sources)Bicipital tendinitis, unspecified shoulder; Translations: [Bicipital tenosynovitis]22-01-9953BimaxfuuGequu connective tissue disease (15 sources)Bursitis of left shoulder; Translations: [Bursitis of left shoulder] 50-68-0549PlsmumqeHwsqf connective tissue disease (5 sources)Bursitis of left shoulder; Translations: [Disorders of bursae and tendons in shoulder region, unspecified]95-85-3465NmiwenchEpljm disorders of stomach and duodenum (20 sources)Disorder of function of stomach; Translations: [Disease of stomach and duodenum, unspecified]69-92-9240BbttbhfjDxgut ear and sense organ disorders (7 sources)Otitis externa; Translations: [Unspecified otitis externa, unspecified ear]Onset: 798266-17-3224HhrjyymVghig endocrine disorders (19 sources)Disorder of pancreatic internal secretion; 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, unspecified]ChronicOther fractures (5 sources)Fracture of rib; Translations: [Fracture of one rib, unspecified side, initial encounter for closedfracture]44-53-9116RvmyjlfaOfjzn fractures (1 source)Fracture of one rib, unspecified side, initial encounter for closed fracture; Translations: [Fracture of one rib, unspecified side, initial encounter for closed fracture]Onset: 60-69-0232IopwxdkvPnzkb gastrointestinal disorders (19 sources)Constipation; Translations: [Constipation, unspecified]EpisodicOther gastrointestinal disorders (1 source)Abdominal distension (gaseous)EpisodicOther gastrointestinal disorders (1 source)EructationEpisodicOther gastrointestinal disorders (1 source)Diarrhea, unspecifiedEpisodicOther gastrointestinal disorders (1 source)Constipation, unspecifiedEpisodicOther lower respiratory disease (9 sources)Rib pain; Translations: [Pleurodynia]Onset: 516551-55-7327 EpisodicOther lower respiratory disease (1 source)Pleurodynia; Translations: [Pleurodynia]Onset: 83-79-0542WteozariPzdsx nervous system disorders (19 sources)Carpal tunnel syndrome; Translations: [Carpal tunnel syndrome, right upper limb]ChronicOther nervous system disorders (19 sources)Cubital tunnel syndrome; Translations: [Lesion of ulnar nerve, right upper limb]ChronicOther nervous system disorders (19 sources)Bilateral carpal tunnel syndrome; Translations: [Carpal tunnel syndrome, bilateral upper limbs]ChronicOther nervous system disorders (1 source)Carpal tunnel syndrome, right upper limbOnset: 08-12-2021 Resolved: 94-87-2348BjgdbpyDrjzj nervous system disorders (1 source)Mass lesion of brain; Translations: [Other specified disorders of brain]04-33-4108WsvgutiLpbeb nervous system disorders (1 source)Compression of brain; Translations: [Neoplasm causing mass effect and brain compression on adjacentstructures (HCC)]Onset: 55-96-9814QjkncqvSyxzd nervous system disorders (20 sources)Pain in limb; Translations: [Other acute postprocedural pain] 71-00-7533FdbwnbfjIambd non-traumatic joint disorders (1 source)Other specified arthritis, unspecified site; Translations: [Inflammatory arthritis]Onset: 11-18-8841SbuyjstMllty non-traumatic joint disorders (20 sources)Pain of right wrist; Translations: [Pain in right wrist]03-22-2025 EpisodicOther non-traumatic joint disorders (20 sources)Pain in right shoulder; Translations: [Acute pain of right shoulder] Onset: 06-05-2021 Resolved: 13-60-0254EorrlhwaRaspo non-traumatic joint disorders (16 sources)Pain in wrist; Translations: [Pain in right wrist]07-88-2690Gmktkira Other nutritional; endocrine; and metabolic disorders (20 sources)Body mass index 30+ - obesity; Translations: [Body mass index (BMI) 33.0-33.9, adult]ChronicOther nutritional; endocrine; and metabolic disorders (20 sources)Severe obesity; Translations: [Class 3 severe obesity due to excess calories with serious comorbidity and body mass index (BMI) of 40.0 to 44.9 in adult]Onset: 861769-42-9302KabgnewUowws nutritional; endocrine; and metabolic disorders (2 sources)Body mass index (BMI) 40.0-44.9, adult; Translations: [Class 3 severe obesity due to excess calories with serious comorbidity and body mass index (BMI) of 40.0 to 44.9 in adult]Onset: 17-96-5968GeyxovtHxrua screening for suspected conditions (not mental disorders or infectious disease) (2 sources)Encounter for screening mammogram for malignant neoplasm of breast; Translations: [Encounter for screening for dental disorders]Onset: 09-16-2024 EpisodicResidual codes; unclassified (20 sources)Obstructive sleep apnea syndrome; Translations: [Obstructive sleep apnea (adult) (pediatric)]Onset: 326639-53-1567PnnprabRaitwjgw codes; unclassified (1 source)Obstructive sleep apnea (adult) (pediatric); Translations: [MAREK (obstructive sleep apnea)]Onset: 77-00-8023VfxqqyfEfqesehh codes; unclassified (2 sources)History of craniotomy; Translations: [Other specified postprocedural states]34-30-3046XatiqfvnLxcnerzv codes; unclassified (1 source)Postprocedural state finding; Translations: [Other specified postprocedural states]85-54-9651CsdyfqqpXonb and subcutaneous tissue infections (20 sources)Cellulitis of forearm; Translations: [Cellulitis of unspecified part of limb]22-66-7412IftaxmnvMstanhfgdav; intervertebral disc disorders; other back problems (1 source)Radiculopathy, thoracic region; Translations: [Radiculopathy, thoracic region]Onset: 63-94-3969QvolysxdVxaxfpm and strains (10 sources)Strain of muscle, fascia and tendon of other parts of biceps, right arm, initial encounter; Translations: [Strain of other muscles, fascia and tendons at shoulder and upper arm level, left arm, initial encounter]Onset: 06-05-2021 Resolved: 88-71-2058BlczihiwPrzkwbc disorders (20 sources)Hypothyroidism; Translations: [Hypothyroidism, unspecified]Onset: 421489-68-1625TjosoocZwnpaqhcxjuu (1 source)Class 3 severe obesity due to excess calories with serious comorbidity and body mass index (BMI) of40.0 to 44.9 in adult; Translations: [Class 3 severe obesity due to excess calories with serious comorbidity and body mass index (BMI) of 40.0 to 44.9 in adult]Onset: 02-14-2025 Past or Other Problems Problem ClassificationProblemDateDocumented DateEpisodic/ChronicBlindness and vision defects (14 sources)Bilateral myopia of eyes; Translations: [Myopia, bilateral]Onset: 905670-16-4778IaifbkslZnxjpuieas and other anemia (1 source)Iron deficiency anemia, unspecified; Translations: [Iron deficiency anemia, unspecified]Onset: 50-50-4561WylbnxlhKnpx disorders (20 sources)Depressive disorder; Translations: [Depression] Resolved: 084765-00-7600XfbauwkPgigwuwie of unspecified nature or uncertain behavior (17 sources)Neoplasm of brain; Translations: [Neoplasm of unspecified behavior of unspecified site]Onset: 02-21-2025 Resolved: 292756-53-6148OrzakuosGediz aftercare (1 source)Encounter for follow-up examination after completed treatment for conditions other than malignant neoplasm; Translations: [Postop check]Onset: 76-63-7989EabktbtmVqfis aftercare (1 source)Encounter for therapeutic drug level monitoring; Translations: [Encounter for medication monitoring]Onset: 87-47-9361LlyhchxiBhluv connective tissue disease (1 source)Enthesopathy, unspecified; Translations: [Tendonitis M77.9]Onset: 06-05-2021 Resolved: 29-31-5132XmeylpegAeesa connective tissue disease (2 sources)Radial styloid tenosynovitis [de Quervain]; Translations: [De Quervain's tenosynovitis, right M65.4]Onset: 06-05-2021 Resolved: 37-20-0502YytamkcgCkfpo connective tissue disease (1 source)Synovitis and tenosynovitis, unspecified; Translations: [Tenosynovitis M65.9]Onset: 06-05-2021 Resolved: 58-95-8432AjdcpdrxChbkt connective tissue disease (20 sources)Fibromyalgia; Translations: [Fibromyalgia]Onset: 19-67-6561Yjfzcxig Other connective tissue disease (1 source)Fibromyalgia; Translations: [Fibromyalgia]Onset: 54-01-0946Vlfzeajz Other diseases of kidney and ureters (1 source)Disorder of kidney and ureter, unspecified; Translations: [Disorder of kidney and ureter, unspecified]Onset: 13-72-0991YnxcjhnsQnsxc gastrointestinal disorders (7 sources)Abdominal bloating; Translations: [Abdominal distension (gaseous)] Onset: 716117-42-7817MpzzdgitBthap nervous system disorders (16 sources)Cerebral edema; Translations: [Cerebral edema]Onset: 02-21-2025 Resolved: 902033-62-7834RiijvjaVcume nervous system disorders (16 sources)Postoperative pain ; Translations: [Other acute postprocedural pain] Onset: 02-22-2025 Resolved: 663565-02-5114RrmgpvarQceem non-traumatic joint disorders (19 sources)Pain in left shoulder; Translations: [Acute pain of left shoulder] Onset: 01-20-2022 Resolved: 93-52-6428ErqvfvkdGiltz non-traumatic joint disorders (19 sources)Pain in right wrist; Translations: [Pain in joint, forearm]Onset: 01-24-2022 Resolved: 92-70-4175KfusxsihRbpwgzsw codes; unclassified (7 sources)Other specified postprocedural states; Translations: [S/P craniotomy] Onset: 11-20-2021 Resolved: 17-51-1753XuuwjehwNsynszce codes; unclassified (16 sources)At risk of epileptic fits; Translations: [Other specified personal risk factors, not elsewhere classified]Onset: 02-21-2025 Resolved: 379730-37-8604OibaghewYctdrlnczmts (1 source)Patient encounter -[id number] Results Test NameValueInterpretationReference RangeFacilityMagnetic resonance imaging reportOrdered By: Perry Milton on 17-83-5860Rnczi reportCHERRINGTON [place] [address] MRI Report Signed Patient: Kourtney Novak MR#: [id number] : 1975 Acct:[id number] Age/Sex: 49 / F ADM Date: 5 Loc: Room: Type: [facility] Attending Dr: Chantal LAMBERT Copies to: FAUSTO Salvador~ Ordering Provider: FAUSTO Salvador Date of Service: 06/27/25 MR/MR thoracic spine wo con: M54.14 ([id number]) XR/XR pre/post mri xray: M54.14 MR thoracic [...] No spinal canal narrowing. Impression dictated by: Perry Milton M.D. 06/27/2025 11:26 PM Dictation Location: [place] [address] Transcribed By: GRACIE 06/27/25 2374 Dictated By: Perry Milton II, MD 06/27/25 979 Signed By: 06/27/25 2326 [facility] Work Phone: xr pre/post mri xrayon 69-48-8017TH pre/post mri xray [facility] [place] [address] [place], [place] [address] MRI Report Signed Patient: Kourtney Novak MR#: [id number] : 1975 Acct:[id number] Age/Sex: 49 / F ADM Date: 06/27/25 Loc: MR Room: Type: [facility] Attending Dr: Chantal LAMBERT Copies to: FAUSTO Salvador Ordering Provider: FAUSTO Salvador Date of Service: 06/27/25 MR/MR thoracic spine wo con: M54.14 ([id number]) XR/XR pre/post mri xray: M54.14 MR thoracic [...] alignment. There is preservation of vertebral body heights and intervertebral disc spaces. No fracture or subluxation. MRI thoracic spine: There is moderate disc height loss at C5-C6 and C6-C7. There is increased signal intensity within the cord at C5-C6 suggesting chronic myelomalacia. This preservation of vertebral body heights. The marrow signal [...] the cord at C5-C6 suggesting chronic myelomalacia. This is only partially evaluated. Follow-up with cervical spine MRI is recommended. The thoracic cord is normal in signal. At T10-T11: Facet hypertrophy is present contributing to mild left neural foraminal narrowing without spinal canal narrowing. At T11-T12: Facet degenerative changes are present with mild to moderate left neural foraminal narrowing. No spinal canal narrowing. Impression dictated by: Perry Milton M.D. 06/27/2025 11:26 PM Dictation Location: [place] [address] Transcribed By: GRACIE 06/27/252325 Dictated By: Perry Milton II, MD 06/27/252320 Signed By: 06/27/252325[facility] Physician GroupCNOV 77-19-0729UGFOGkoptc Visit (ISSA) KOURTNEY NOVAK ([id number]) 1975 F Date Time Provider Department 06/22/25 2:20 PM ZULEMA WOOD During your visit today, we recorded the following information about you: Pulse Blood pressure Weight Height 86/minute 138/77 113.4 kg 1.651 m Zulema Wood MD 06/22/2025 2:38 PM Signed Kourtney Novak is a 47 year old female who presents for follow up: [facility] elevated crp Negative RF, CCP, DWAYNE PREVIOUS DIAG arthralgias, FM, COPD Meningioma- due to have surgery in future INTERVAL HISTORY since last visit, had few flare ups, went to Urgent care and given toradol injections which helped. Also took muscle relaxants and steroids Today achy all over Continues to be on plaquenil and feels [...] SURG Bilateral methocarbamol (ROBAXIN) 500 mg tablet TAKE 1 TABLET BY MOUTH TWICE A DAY NEEDED DULoxetine DR (CYMBALTA) 30 mg capsule TAKE 1 CAPSULE BY MOUTH EVERY DAY ALONG WITH THE 60MG CAPSULE TO EQUAL 90MG A DAY hydrOXYchloroQUINE (PLAQUENIL) 200 mg tablet TAKE 1 TABLET BY MOUTH TWICE A DAY DULoxetine (CYMBALTA) 60 mg capsule TAKE 1 CAPSULE BY MOUTH EVERY DAY etodolac (LODINE) 400 mg tablet TAKE 1 TABLET BY MOUTH TWICE A DAY NEEDED predniSONE (DELTASONE) 5 mg tablet TAKE 1 TO 2 TABLETS BY MOUTH EVERY DAY senna-docusate (SENNA-S) 8.6-50 mg per tablet Take 1 tablet by mouth two times a day as needed for constipation. mirabegron (MYRBETRIQ) 50 mg Tb24 Take 50 mg by mouth once daily. ondansetron orally disintegrating (ZOFRAN ODT) 4 mg disintegrating tablet Take 4 mg by mouth every 8 hours as needed. levothyroxine (SYNTHROID) 50 mcg tablet Take 50 mcg by mouth daily before breakfast. benzonatate (TESSALON PERLES ORAL) budesonide (PULMICORT) 1 [...] mg tablet pioglitazone (ACTOS) 15 mg tablet nortriptyline (PAMELOR) 10 mg capsule Take 1 capsule by mouth daily at bedtime. acetaminophen (TYLENOL) 325 mg tablet 2 tablets by ORAL/FEEDING TUBE route every 4 hours as needed for pain. medroxyPROGESTERone (DEPO-PROVERA) 150 mg/mL injection Inject 150 mg intramuscularly every 12 weeks. simvastatin (ZOCOR) 20 mg tablet Take 20 mg by mouth once daily. FAMILY HISTORY Problem Relation Age of Onset Seizures Brother Social History Tobacco Use Smoking status: Former Smokeless tobacco: Never Tobacco comments: Started 1994. Quit 2009. 1 ppd Vaping Use Vaping status: Never Used Substance Use Topics Alcohol use: Yes Comment: 3-4 drinks on occasion Drug use: Never BP 138/77 Pulse 86 Ht 165.1 cm (5' 5 ) Wt 113.4 kg (250 lb) BMI 41.60 kg/m? PE; Well built and nourished. Pleasant mood. In no acute distress. Examination of the skin: She has no rashes, ulcers, nodules or tightening of the skin. Eyes: Pupils are equal in size and reactive to light. Conjunctivae are noninjected. (more content not included)...[facility] wo conon 23-51-2950ZS chest wo [facility] [place] [address] [place] [address] CT Scan Report Signed Patient: Kourtney Novak MR#: [id number] : 1975 Acct:[id number] Age/Sex: 49 / F ADM Date: 06/19/25 Loc: CT Room: Type: [facility] Attending Dr: Jesus Gonzalez MD Copies to: Jesus Gonzalez MD Ordering Provider: Jesus Gonzalez MD Date of Service: 06/19/25 CT/CT chest wo con: R07.89 CT CHEST WITHOUT IV CONTRAST: CLINICAL HISTORY: Right-sided chest wall/rib pain for 3 weeks, no known injury COMPARISON: None TECHNIQUE: Spiral images were obtained through the chest without IV contrast. This CT exam was performed using one or more following dose reduction techniques: Automated exposure control, adjustment of the mA and/or kV according to patient size, or use of iterative reconstruction technique. FINDINGS: Mediastinum:No pericardial effusion. No adenopathy. Lungs:No focal opacity effusion or pneumothorax. Abd: Fatty infiltration liver. [] Soft tissues/Bones: [] Right eighth lateral rib fracture with callus formation subacute. CT/CT chest wo con IMPRESSION: Subacute healing right eighth rib fracture. Impression dictated by: Lincoln Hoffmann M.D. 06/19/2025 11:19 PM Dictation Location: [place] [address] Transcribed By: GRACIE 06/19/252318 Dictated By: Lincoln Hoffmann MD 06/19/252314 Signed By: 06/19/252318[facility] Physician GroupUS thyroidon 14-57-3849SC [facility] [place] [address] [place] [address] Ultrasound Report Signed Patient: Kourtney Novak MR#: [id number] : 1975 Acct:[id number] Age/Sex: 49 / F ADM Date: 06/13/25 Loc: Room: Type: [facility] Attending Dr: Jesus Gonzalez MD Ordering Provider: Jesus Gonzalez MD Date of Service: 06/13/25 US/US thyroid: E04.1 Copies to: Jesus Gonzalez MD Thyroid Ultrasound HISTORY: Nontoxic single thyroid nodule COMPARISON: 02/15/2024 The RIGHT lobe measures 3.4 x 1.4 x 1.6cm. LEFT lobe measures 3.5 x 1.5 x 1.6 cm. Isthmus has an AP dimension of 0.3cm. Left hypoechoic 11 mm nodule redemonstrated. Unchanged. No new nodule. Heterogeneous thyroid parenchyma.. No microcalcifications identified. Symmetric blood flow of the thyroid gland identified. US/US thyroid IMPRESSION: Stable 11 mm left thyroid nodule. No new or enlarging nodule. Impression dictated by: George Gray M.D. 06/13/2025 10:29 PM Dictation Location: [place] [address] Tech: Tana Chahal Transcribed By: [facility] 06/13/252228 Dictated By: George Gray DO 06/13/252225 Signed By: 06/13/252228[facility] Physician GroupXR Ribs Views and Chest PAon 06-06-2025 Chronic appearing right sixth and seventh rib deformities. No distinct acute displaced rib fracture. ELECTRONICALLY SIGNED BY: Sylvester Triplett MDIMAGINGEXAMINATION/TECHNIQUE: XR RIBS 2 VIEWS RIGHT WITH CHEST ANTEROPOSTERIOR HISTORY: Right-sided rib pain. No injury. COMPARISON: None RESULT: No consolidation, pleural effusion, or pneumothorax. Normal cardiomediastinal silhouette. Chronic appearing right sixth and seventh rib deformities. No distinct acute displaced rib fracture. Degenerative changes. Mild S-shaped scoliosis in the spine. Surgical clips projecting over the right upper hemithorax. IMAGINGPaSylvester bolden MD - 06/06/2025 EXAMINATION/TECHNIQUE: XR RIBS 2 [...] fracture. ELECTRONICALLY SIGNED BY: Sylvester Triplett MD NOMS HealthcareXR Ribs Views and Chest PAOrdered By: Sylvester Triplett on 53-67-1927[employer] Work Phone: ecg 12 lead ECGon 09-39-1579FOL 12 lead ECGCHERRINGTON [place] [address] Electrocardiograph Report Signed Patient: Kourtney Novak MR#: [id number] : 1975 Acct:[id number] Age/Sex: 49 / F ADM Date: 06/05/25 Loc: ER Room: Type: [facility] ER Attending Dr: Ordering Provider: Mayda Hendrix APRN Date of Service: 06/05/25 ECG/ECG 12 lead ECG: Back Pain/Injury Copies to: Test Reason : Blood Pressure : 194/93 mmHG Vent. Rate : 87 BPM Atrial Rate : 87 BPM P-R Int : 132 ms QRS Dur : 88 ms QT Int : 368 ms P-R-T Axes : 43 56 43 degrees QTcB Int : 442 ms Normal sinus rhythm Possible Inferior infarct , age undetermined Abnormal ECG When compared with ECG of 04-Sep-2020 07:08, No significant change was found Confirmed by ALESSIA ECHEVERRIA MD ([id number]) on 06/07/2025 4:43:01 AM Referred By: Electronically Signed By: ALESSIA ECHEVERRIA MD Transcribed By: MUS Signed By Alessia Echeverria Jr, MD [address] [place] [address] Physician [facility] MadisonX-ray reportOrdered By: Lincoln Hoffmann on 27-94-5137Aorfa reportKimberly Ville [address] [place] [address] XRay Report Signed Patient: Kourtney Novak MR#: [id number] : 1975 Acct:[id number] Age/Sex: 49 / F ADM Date: 5 Loc: ER Room: Type: [facility] ER Attending Dr: Copies to: Mayda Hendrix APRN~ Ordering Provider: Mayda Hendrix APRN Date of Service: 06/05/25 XR/XR ribs RT min 3V w CXR1V*: Back Pain/Injury PA CHEST WITH RIGHT RIBS: CLINICAL HISTORY: Right-sided anterolateral lower rib pain worse in past 2 weeks COMPARISON: No recent comparisons FINDINGS: Unremarkable cardiomediastinal. Lungs clear. No effusion or pneumothorax. Remote healed right-sidedrib fractures noted. There are surgical clips projecting over the right shoulder/chest. XR/XR ribs RT min 3V w CXR1V* IMPRESSION: NEGATIVE ACUTE DISPLACED RIB FRACTURE. NO ACUTE PLEURAL-PARENCHYMAL DISEASE. Impression dictated by: Lincoln Hoffmann M.D. 06/05/2025 9:52 PM Dictation Location: [place] [address] Transcribed By: [facility] 06/05/252151 Dictated By: Lincoln Hoffmann MD 06/05/252147 Signed By: 06/05/252151 [facility] Work Phone: XR RIBS 2 VIEWS RIGHT WITH CHEST ANTEROPOSTERIORon 45-76-6408FF RIBS 2 VIEWS RIGHT WITH CHEST ANTEROPOSTERIOREXAMINATION/TECHNIQUE: XR RIBS 2 VIEWS RIGHT WITH CHEST [...] rib fracture. ELECTRONICALLY SIGNED BY: Sylvester Triplett MDNormalNot AvailableXR Ribs Views and Chest PAon 88-41-4700Mtqcirnpk Study observation (narrative)[facility]OM[facility] HealthcareXR ribs RT min 3V w CXR1V*on 05-03-1639GN ribs RT min 3V w CXR1V*[facility] [place] [address] [place] [address] XRay Report Signed Patient: Kourtney Novak MR#: [id number] : 1975 Acct:[id number] Age/Sex: 49 / F ADM Date: 06/05/25 Loc: ER Room: Type: [facility] ER Attending Dr: Copies to: Mayda Hendrix [...] Hoffmann M.D. 06/05/2025 9:52 PM Dictation Location: [place] [address] Transcribed By: [facility] 06/05/252151 Dictated By: Lincoln Hoffmann MD 06/05/252147 Signed By: 06/05/[address] [facility]yCampbell[facility] Physician GroupX-ray reportOrdered By: Perry Milton on 39-57-9080Sfutw reportFIRWEXNER MEDICAL [facility] [address] [place] [address] XRay Report Signed Patient: Kourtney Novak MR#: [id number] : 1975 Acct:[id number] Age/Sex: 49 / F ADM Date: 5 Loc: SOXD Room: Type: REG CLI Attending Dr: Krishan Nuñez DO Copies [...] Milton M.D. 05/30/2025 8:02 PM Dictation Location: [facility]-- Transcribed By: [facility] 05/30/252001 Dictated By: Perry Milton II, MD 05/30/251999 Signed By: 05/30/252001 [facility] Work Phone: XR shoulder RT min 2V*on 87-92-0870IK shoulder RT min 2V*[facility] [address] [place] [address] XRay Report Signed Patient: Kourtney Novak MR#: [id number] : 1975 Acct:[id number] Age/Sex: 49 / F ADM Date: 05/30/25 Loc: [facility] Room: Type: [facility] Attending Dr: Krishan Nuñez DO Copies [...] Milton M.D. 05/30/2025 8:02 PM Dictation Location: [place] [address] Transcribed By: [facility] 05/30/252001 Dictated By: Perry Milton II, MD 05/30/251999 Signed By: 05/30/252001[facility] TggvuD8U with Estimated Average Gluon 74-43-5630Frcbamq [Mass/Vol]117 mg/dLCampbellton-Graceville Hospital Physician GroupComment on above:Order Comment: FASTING.JKWRyuri Comment: PERFORMED BY: [place] [address] PATHOLOGIST FASTENER SEWING MACHINE OPERATOR BERNARDINO HAMILTON M.D.Performed By: #### LIPID, [id number], TSH3, T3F, FE PRO, [id number], T4T, MG, A1C WTH eA, CBC, PHOS #### [facility] [address] [place] [address] #### INSULIN #### [facility] ,Alanine aminotransferase [Enzymatic activity/volume] in Serum or PlasmaOrdered By: Jesus Gonzalez on 62-49-5395AIT [Catalytic activity/Vol]17 U/LNormal7-52 [facility] CenterComment on above:Performed By: #### LIPID, [id number], TSH3, T3F, FE PRO, [id number], T4T, MG, A1C WTH eA, CBC, PHOS #### [facility] [address] [place] [address] [place] #### INSULIN #### [facility] ,Albumin [Mass/volume] in Serum or Plasma by Bromocresol green (BCG) dye binding methoOrdered By: Jesus Gonzalez on 85-98-7958Xyqpyzs BCG dye [Mass/Vol]4.2 g/dL 3.5-5.7FMarietta Osteopathic ClinicAlkaline phosphatase [Enzymatic activity/volume] in Serum or PlasmaOrdered By: Jesus Gonzalez on 70-41-2893WUM [Catalytic activity/Vol]46 U/NHfwvfg03-515YnidmhvywAdena [facility]ike [facility] Center Comment on above:Result Comment: PERFORMED BY: [place] [address] PATHOLOGIST FASTENER SEWING MACHINE OPERATOR BERNARDINO HAMILTON M.D.Performed By: #### LIPID, [id number], TSH3, T3F, FE PRO, TIEY94CWH, T4T, MG, A1C WTH eA, CBC, PHOS #### [address] #### INSULIN #### [facility] ,Aspartate aminotransferase [Enzymatic activity/volume] in Serum or Plasma Ordered By: Jesus Gonzalez on 96-71-3772KRM [Catalytic activity/Vol]12 U/FXth22-73 [facility] CenterComment on above:Performed By: #### LIPID, [id number], TSH3, T3F, FE PRO, [id number], T4T, MG, A1C WTH eA, CBC, PHOS #### [facility] [address] [place] [address] [place] #### INSULIN #### [facility] ,Basophils [#/volume] in Blood by Automated countOrdered By: Jesus Gonzalez on 37-77-9575Caaexohhs (Bld) [#/Vol]0.1 10*3/uLNormal0.0-0.2FMarietta Osteopathic ClinicComment on above:Order Comment: FASTING.JKWResult Comment: PERFORMED BY: [place] [address] PATHOLOGIST FASTENER SEWING MACHINE OPERATOR BERNARDINO HAMILTON M.D.Performed By: #### LIPID, [id number], TSH3, T3F, FE PRO, GPNY64EZP, T4T, MG, A1C WTH eA, CBC, PHOS #### [facility] [address] [place] [address] [place] #### INSULIN #### [facility] ,Basophils/100 leukocytes in Blood by Automated countOrdered By: Jesus Gonzalez on 33-81-1515Pvnxaiuvf/100 WBC (Bld)0.7 %Normal.[facility] Comment on above:Order Comment: FASTING.JKWPerformed By: #### LIPID, [id number], TSH3, T3F, FE PRO, [id number], T4T, MG, A1C WTH eA, CBC, PHOS #### [place] [address] [place] #### INSULIN #### [facility] ,Bilirubin.total [Mass/volume] in Serum or PlasmaOrdered By: Jesus Gonzalez on 05-01-3848Dnycpbfge [Mass/Vol]0.3 mg/dLNormal0.3-1.0[facility] Medical CenterComment on above:Performed By: #### LIPID, [id number], TSH3, T3F, FE PRO, ZPEA42ZPV, T4T, MG, A1C WTH eA, CBC, PHOS #### [address] #### INSULIN #### [facility] ,Blood estimated average glucose determination by estimation from glycated hemoglobinOrdered By: Jesus Gonzalez on 64-55-2527Lfzqwvp glucose Estimated from glycated hemoglobin (Bld) [Mass/Vol]117 mg/dLAdena Pike Medical Center Calcium [Mass/volume] in Serum or PlasmaOrdered By: Jesus Gonzalez on 05-26-2025 Calcium [Mass/Vol]9.1 mg/dLNormal8.6-10.3FMarietta Osteopathic Clinic Comment on above:Performed By: #### LIPID, [id number], TSH3, T3F, FE PRO, IFXC38DEN, T4T, MG, A1C WTH eA, CBC, PHOS #### [facility] [address] [place] [address] [place] #### INSULIN #### [facility] ,Carbon dioxide, total [Moles/volume] in Serum or PlasmaOrdered By: Jesus Smithpiedad on 92-61-3361XJ2 [Moles/Vol]26.4 mmol/QDovxaf05.0-31.0[facility] CenterComment on above:Performed By: #### LIPID, [id number], TSH3, T3F, FE PRO, PDLF84GDC, T4T, MG, A1C WTH eA, CBC, PHOS #### [facility] [address] [place] [address] [place] #### INSULIN #### [facility] ,Chloride [Moles/volume] in Serum or PlasmaOrdered By: Jesus Carlos on 05-26-2025 Chloride [Moles/Vol]103 mmol/DJqywyj42-635YrzylnsldAdena Pike Medical Center Comment on above:Performed By: #### LIPID, [id number], TSH3, T3F, FE PRO, RGOH19ORK, T4T, MG, A1C WTH eA, CBC, PHOS #### [facility] [address] [place] [address] [place] #### INSULIN #### [facility] ,Cholesterol [Mass/volume] in Serum or PlasmaOrdered By: Jesus Smithpiedad on 18-14-7351Hpaozqbkgzk [Mass/Vol]206 mg/uZViha713-366UjptkkflyAdena Pike Medical CenterComment on above:Chol less than 200 mg/dl low riskChol 201-239 mg/dl borderline riskChol 240 mg/dl and greater high riskOrder Comment: FASTING.JKW Result Comment: Chol less than 200 mg/dl low risk Chol 201-239 mg/dl borderline risk Chol 240 mg/dl and greater high riskPerformed By: #### LIPID, [id number], TSH3, T3F, FE PRO, [id number], T4T, MG, A1C WTH eA, CBC, PHOS #### [address] [address] [place] #### INSULIN #### [facility] ,Cholesterol in HDL [Mass/volume] in Serum or PlasmaOrdered By: Jesus Gonzalez on 98-53-3167Azzdfuroqvi in HDL [Mass/Vol]67 mg/eSTwmnqo62-67CmwfuajvyAdena Pike Medical CenterComment on above:HDL CHOL ATP-III CLASSIFICATION Cardiovascular RiskHDL > or equal to 60 mg/dL LOWHDL < 40 mg/dL HIGHOrder Comment: FASTING.JKW Result Comment: HDL CHOL ATP-III CLASSIFICATION Cardiovascular Risk HDL > or equal to 60 mg/dL LOW HDL < 40 mg/dL HIGHPerformed By: #### LIPID, [id number], TSH3, T3F, FE PRO, [id number], T4T, MG, A1C WTH eA, CBC, PHOS #### [facility] [address] [place] [address] #### INSULIN #### [facility] ,Cholesterol in LDL Calc [Mass/Vol]Ordered By: Jesus Gonzalez on 05-26-2025 Cholesterol in LDL [Mass/Vol]91 mg/dL0-100[facility] Comment on above:LDL ATP III CLASSIFICATIONLDL less than 100 mg/dL OptimalLDL 100-129 mg/dL Near or above ipeunipURY281-549 mg/dL Borderline highLDL 160-189 mg/dL HighLDL greater than 189 mg/dL Very highCholesterol in VLDL Calc [Mass/Vol]Ordered By: Jesus Gonzalez on 64-79-0862Jzufzztbgxu in VLDL [Mass/Vol]47 mg/dLAdena Pike Medical CenterComplete Blood Count Auto Diffon 60-79-7592Suta Corpuscular HGB Conc33.0 g/kWCuxvid46.0-35.0[facility] Physician GroupComment on above:Order Comment: FASTING.JKWPerformed By: #### LIPID, [id number], TSH3, T3F, FE PRO, [id number], T4T, MG, A1C WTH eA, CBC, PHOS #### [facility] [address] [place] [address] [place] #### INSULIN #### [facility] ,NRBC%0.1 /100{WBC}Normal0-0.5The [facility] Physician GroupComment on above: Order Comment: FASTING.JKWPerformed By: #### LIPID, [id number], TSH3, T3F, FE PRO, [id number], T4T, MG, A1C WTH eA, CBC, PHOS #### [place] [address] [place] #### INSULIN #### [facility] ,White Blood Count8.3 [CFU]/mLNormal3.8-11.6[facility] Physician GroupComment on above:Order Comment: FASTING.JKWPerformed By: #### LIPID, [id number], TSH3, T3F, FE PRO, [id number], T4T, MG, A1C WTH eA, CBC, PHOS #### [place] [address] [place] #### INSULIN #### [facility] ,Comprehensive Metabolic Panelon 16-96-9725Fiegqaa [Mass/Vol]4.2 g/dLNormal 3.5-5.7The [facility] Physician GroupComment on above:Performed By: #### LIPID, [id number], TSH3, T3F, FE PRO, UQZV59WLP, T4T, MG, A1C WTH eA, CBC, PHOS #### [place] [address] [place] #### INSULIN #### [facility] ,GFR/1.73 sq M.predicted MDRD (S/P/Bld) [Vol rate/Area]mL/min/{1.73_m2}NormalThe [facility] Physician GroupComment on above:Performed By: #### LIPID, [id number], TSH3, T3F, FE PRO, [id number], T4T, MG, A1C WTH eA, CBC, PHOS #### [place] [address] [place] #### INSULIN #### [facility] ,Creatinine [Mass/volume] in Serum or PlasmaOrdered By: Jesus Gonzalez on 10-03-1902Turhwlvyma [Mass/Vol]0.85 mg/dLNormal0.60-1.20[facility] CenterComment on above:Performed By: #### LIPID, [id number], TSH3, T3F, FE PRO, [id number], T4T, MG, A1C WTH eA, CBC, PHOS #### [facility] [address] [place] [address] [place] #### INSULIN #### [facility] ,Eosinophils [#/volume] in Blood by Automated countOrdered By: Jesus Gonzalez on 70-90-1801Vtoqmhavxcr (Bld) [#/Vol]0.2 10*3/uLNormal0.0-0.45[facility] CenterComment on above:Order Comment: FASTING.JKWPerformed By: #### LIPID, [id number], TSH3, T3F, FE PRO, [id number], T4T, MG, A1C WTH eA, CBC, PHOS #### [facility] [address] [place] [address] [place] #### INSULIN #### [facility] ,Eosinophils/100 leukocytes in Blood by Automated countOrdered By: Jesus Gonzalez on 55-30-5053Capphdkzfgk/100 WBC (Bld)3.0 %Normal.[facility] Medical CenterComment on above:Order Comment: FASTING.JKWPerformed By: #### LIPID, [id number], TSH3, T3F, FE PRO, [id number], T4T, MG, A1C WTH eA, CBC, PHOS #### [facility] [address] [place] [address] [place] #### INSULIN #### [facility] ,Erythrocyte distribution width [Ratio] by Automated countOrdered By: Jesus Gonzalez on 47-34-9056Wsibuzwkwtq distribution width (RBC) [Ratio]13.5 %Normal 11.9-15.3FMarietta Osteopathic ClinicComment on above:Order Comment: FASTING.JKWPerformed By: #### LIPID, [id number], TSH3, T3F, FE PRO, [id number], T4T, MG, A1C WTH eA, CBC, PHOS #### [place] [address] [place] #### INSULIN #### [facility] ,Erythrocytes [#/volume] in Blood by Automated countOrdered By: Jesus Gonzalez on 62-36-8436KWP (Bld) [#/Vol]4.27 10*6/uLNormal3.60-5.00Adena Pike Medical CenterComment on above:Order Comment: FASTING.JKWPerformed By: #### LIPID, [id number], TSH3, T3F, FE PRO, [id number], T4T, MG, A1C WTH eA, CBC, PHOS #### [place] [address] [place] #### INSULIN #### [facility] ,FE PROon 05-26-2025% Iron Gogkansleq62.2 %Vij65-37Pib [facility] Comment on above:Order Comment: FASTING.JKWPerformed By: #### LIPID, [id number], TSH3, T3F, FE PRO, [id number], T4T, MG, A1C WTH eA, CBC, PHOS #### [place] [address] [place] #### INSULIN #### [facility] ,Total Iron Binding Onxxeorb550 ug/xBXlhglt416-017Rkc [facility] Comment on above:Order Comment: FASTING.JKWPerformed By: #### LIPID, [id number], TSH3, T3F, FE PRO, [id number], T4T, MG, A1C WTH eA, CBC, PHOS #### [place] [address] [place] #### INSULIN #### [facility] ,Ferritin [Mass/volume] in Serum or PlasmaOrdered By: Jesus Gonzalez on 05-26-2025 Ferritin [Mass/Vol]8.1 ng/mLLow11.0-306.8[facility] Comment on above:Order Comment: FASTING.JKWPerformed By: #### LIPID, [id number], TSH3, T3F, FE PRO, [id number], T4T, MG, A1C WTH eA, CBC, PHOS #### [facility] [address] #### INSULIN #### [facility] ,Folate [Mass/volume] in Serum or PlasmaOrdered By: Jesus Gonzalez on 05-26-2025 Folate [Mass/Vol]30.0 ng/mL>5.9Adena Pike Medical CenterComment on above:Folate reference range: >5.9 ng/mlThe WHO technical consultation on folate and vitamin n52mcxubsfouiqm has determined that folate concentrations lessthan 4 ng/ml are considered deficient.Glomerular filtration rate [Volume Rate/Area] in Serum, Plasma or Blood by CreatinineOrdered By: Jesus Gonzalez on 05-26-2025 Glomerular filtration rate [Volume Rate/Area] in Serum, Plasma or Blood by Creatinine> 60.0 mL/MinAdena Pike Medical CenterGlucose [Mass/volume] in Serum or PlasmaOrdered By: Jesus Gonzalez on 11-01-1589Gsynbhe [Mass/Vol]88 mg/dL Tkzcnj36-813UqmbgbdkrAdena Pike Medical CenterComment on above:ADA recommended reference rangeRandom Glucose Reference Range is dependent on time and content of last meal. Glucose of more than 200 mg/dL in a nonstressed, ambulatory subject supports the diagnosisof Diabetes Mellitus.Result Comment: Random Glucose Reference Range is dependent on time and content of last meal. Glucose of more than 200 mg/dL in a nonstressed, ambulatory subject supports the diagnosis of Diabetes Mellitus. ADA recommended reference rangePerformed By: #### LIPID, [id number], TSH3, T3F, FE PRO, [id number], T4T, MG, A1C WTH eA, CBC, PHOS #### [facility] [address] [place] [address] #### INSULIN #### [facility] ,Hematocrit [Volume Fraction] of Blood by Automated countOrdered By: Jesus Gonzalez on 23-84-8869Zxlduffhvu (Bld) [Volume fraction]37.8 %Xuasnm94.0-46.4FMarietta Osteopathic ClinicComment on above:Order Comment: FASTING.JKWPerformed By: #### LIPID, [id number], TSH3, T3F, FE PRO, [id number], T4T, MG, A1C WTH eA, CBC, PHOS #### [facility] [address] [place] [address] #### INSULIN #### [facility] ,Hemoglobin A1c/Hemoglobin.total in BloodOrdered By: Jesus Carlos on 05-26-2025 HbA1c (Bld) [Mass fraction]5.7 %High4.3-5.6FMarietta Osteopathic Clinic Comment on above:Increased risk for diabetes: 5.7 - 6.4diabetes: >6.4glycemic control for adults with diabetes: <7.0Order Comment: FASTING.JKWResult Comment: Increased risk for diabetes: 5.7 - 6.4 diabetes: >6.4 glycemic control for adults with diabetes: <7.0Performed By: #### LIPID, [id number], TSH3, T3F, FE PRO, [id number], T4T, MG, A1C WTH eA, CBC, PHOS #### [facility] [address] [place] [address] #### INSULIN #### [facility] ,Hemoglobin [Mass/volume] in BloodOrdered By: Jesus Carlos on 05-26-2025 Hemoglobin (Bld) [Mass/Vol]12.5 g/yMJpyiki13.8-15.4FMarietta Osteopathic ClinicComment on above:Order Comment: FASTING.JKWPerformed By: #### LIPID, [id number], TSH3, T3F, FE PRO, [id number], T4T, MG, A1C WTH eA, CBC, PHOS #### [address] #### INSULIN #### [facility] ,Insulinon 91-14-8394Cquuswr71.6 u[iU]/mLNormal2.6-24.9The [facility] Physician GroupComment on above:Order Comment: FASTING.JKWResult Comment: Performed at: - [facility] [id number] Shower Attendant: Maxim Daniel PhD, Phone: [phone] PERFORMED BY: [place] [address] PATHOLOGIST FASTENER SEWING MACHINE OPERATOR BERNARDINO HAMILTON M.D.Performed By: #### LIPID, [id number], TSH3, T3F, FE PRO, [id number], T4T, MG, A1C WTH eA, CBC, PHOS #### [address] #### INSULIN #### [facility] ,Iron [Mass/volume] in Serum or PlasmaOrdered By: Jesus Gonzalez on 70-07-0883Feed [Mass/Vol]45 ug/rOCjb19-456XcwmpltvtAdena Pike Medical CenterComment on above: Order Comment: FASTING.JKWPerformed By: #### LIPID, [id number], TSH3, T3F, FE PRO, [id number], T4T, MG, A1C WTH eA, CBC, PHOS #### [facility] [address] [place] [address] [place] #### INSULIN #### [facility] ,Leukocytes [#/volume] corrected for nucleated erythrocytes in Blood by Automated counOrdered By: Jesus Gonzalez on 09-75-6195BKB corrected for nucl RBC Auto (Bld) [#/Vol]8.3 10*3/uL3.8-11.6FMarietta Osteopathic ClinicLeukocytes [#/volume] in Blood by Automated countOrdered By: Jesus Gonzalez on 63-77-6221TCK (Bld) [#/Vol]8.3 10*3/uLNormal3.8-11.6FMarietta Osteopathic ClinicComment on above:Order Comment: FASTING.JKWPerformed By: #### LIPID, [id number], TSH3, T3F, FE PRO, [id number], T4T, MG, A1C WTH eA, CBC, PHOS #### [facility] [address] #### INSULIN #### [facility] ,Lipid Panelon 32-39-2533CYR Cholesterol,Qaktgxjykq12 mg/dLNormal0-100The [facility] Physician GroupComment on above:Order Comment: FASTING.JKWResult Comment: LDL ATP III CLASSIFICATION LDL less than 100 mg/dL Optimal LDL 100-129 mg/dL Near or above optimal LDL 130-159 mg/dL Borderline high LDL 160-189 mg/dL High LDL greater than 189 mg/dL Very highPerformed By: #### LIPID, [id number], TSH3, T3F, FE PRO, [id number], T4T, MG, A1C WTH eA, CBC, PHOS #### [facility] [address] #### INSULIN #### [facility] ,Triglyceride w/Wuylxx084 mg/dLHigh0-149The [facility] Physician GroupComment on above:Order Comment: FASTING.JKWResult Comment: TRIG ATP III CLASSIFICATION TRIG less than 150 mg/dL Normal TRIG 150-199 mg/dL Borderline high TRIG 200-500 mg/dL High TRIG greater than 500 mg/dL Very high Standard traceable to the Center for Disease Conrtrol and Prevention (CDC) test method.Performed By: #### LIPID, [id number], TSH3, T3F, FE PRO, [id number], T4T, MG, A1C WTH eA, CBC, PHOS #### [facility] [address] [place] [address] [place] #### INSULIN #### [facility] ,VLDL JAMUIIRXMYS04 mg/dLNormalThe [facility] Physician GroupComment on above: Order Comment: FASTING.JKWPerformed By: #### LIPID, [id number], TSH3, T3F, FE PRO, [id number], T4T, MG, A1C WTH eA, CBC, PHOS #### [facility] [address] [place] [address] [place] #### INSULIN #### [facility] ,Lymphocytes [#/volume] in Blood by Automated countOrdered By: Jesus Gonzalez on 74-43-7960Vjoupjtbrah (Bld) [#/Vol]2.9 10*3/uLNormal1.00-4.8Adena Pike Medical CenterComment on above:Order Comment: FASTING.JKWPerformed By: #### LIPID, [id number], TSH3, T3F, FE PRO, [id number], T4T, MG, A1C WTH eA, CBC, PHOS #### [facility] [address] [place] [address] #### INSULIN #### [facility] ,Lymphocytes/100 leukocytes in Blood by Automated countOrdered By: Jesus Gonzalez on 20-84-0450Xwktbdgkbzf/100 WBC (Bld)34.8 %Normal.Adena Pike Medical CenterComment on above:Order Comment: FASTING.JKWPerformed By: #### LIPID, [id number], TSH3, T3F, FE PRO, [id number], T4T, MG, A1C WTH eA, CBC, PHOS #### [facility] [address] [place] [address] [place] #### INSULIN #### [facility] ,MCH [Entitic mass] by Automated countOrdered By: Jesus Gonzalez on 74-56-6776IAB (RBC) [Entitic mass]29.2 wfSxtkzd52.7-34.3FMarietta Osteopathic Clinic Comment on above:Order Comment: FASTING.JKWPerformed By: #### LIPID, [id number], TSH3, T3F, FE PRO, [id number], T4T, MG, A1C WTH eA, CBC, PHOS #### [place] [address] [place] #### INSULIN #### [facility] ,MCHC Auto (RBC) [Mass/Vol]Ordered By: Jesus Carlos on 49-95-0950HGBA (RBC) [Mass/Vol]33.0 g/dL32.0-35.0Adena Pike Medical CenterMCV [Entitic volume] by Automated countOrdered By: Jesus Gonzalez on 40-45-3067GEZ (RBC) [Entitic vol]88.5 hHQbxoio39-653NzivdpjnaAdena Pike Medical CenterComment on above:Order Comment: FASTING.JKWPerformed By: #### LIPID, [id number], TSH3, T3F, FE PRO, [id number], T4T, MG, A1C WTH eA, CBC, PHOS #### [address] #### INSULIN #### [facility] ,Magnesium [Mass/volume] in Serum or PlasmaOrdered By: Jesus Gonzalez on 05-26-2025 Magnesium [Mass/Vol]1.8 mg/dLLow1.9-2.7FMarietta Osteopathic ClinicComment on above:Order Comment: FASTING.JKWPerformed By: #### LIPID, [id number], TSH3, T3F, FE PRO, [id number], T4T, MG, A1C WTH eA, CBC, PHOS #### [place] [address] [place] #### INSULIN #### [facility] ,Monocytes [#/volume] in Blood by Automated countOrdered By: Jesus Gonzalez on 01-56-9082Yqgokphqt (Bld) [#/Vol]0.9 10*3/uLHigh0.0-0.8Adena Pike Medical CenterComment on above:Order Comment: FASTING.JKWPerformed By: #### LIPID, [id number], TSH3, T3F, FE PRO, [id number], T4T, MG, A1C WTH eA, CBC, PHOS #### [facility] [address] [place] [address] [place] #### INSULIN #### [facility] ,Monocytes/100 leukocytes in Blood by Automated countOrdered By: Jesus Gonzalez on 89-15-6444Juyqescbf/100 WBC (Bld)11.2 %Normal.[facility] Comment on above:Order Comment: FASTING.JKWPerformed By: #### LIPID, [id number], TSH3, T3F, FE PRO, [id number], T4T, MG, A1C WTH eA, CBC, PHOS #### [facility] [address] [place] [address] [place] #### INSULIN #### [facility] ,Neutrophils [#/volume] in Blood by Automated countOrdered By: Jesus Gonzalez on 81-66-4094Xfhdckfgmtu (Bld) [#/Vol]4.2 10*3/uLNormal1.8-7.7FMarietta Osteopathic ClinicComment on above:Order Comment: FASTING.JKWPerformed By: #### LIPID, [id number], TSH3, T3F, FE PRO, [id number], T4T, MG, A1C WTH eA, CBC, PHOS #### [address] #### INSULIN #### [facility] ,Neutrophils/100 leukocytes in Blood by Automated countOrdered By: Jesus Gonzalez on 87-25-2556Zixifzfoegc/100 WBC (Bld)50.3 %Normal.Adena Pike Medical CenterComment on above:Order Comment: FASTING.JKWPerformed By: #### LIPID, [id number], TSH3, T3F, FE PRO, [id number], T4T, MG, A1C WTH eA, CBC, PHOS #### [place] [address] [place] #### INSULIN #### [facility] ,No Panel InformationOrdered By: Jesus Gonzalez on 18-51-4824Egrmnedn Creatinine Clearance (ChemN/AFMarietta Osteopathic ClinicNucleated erythrocytes [Presence] in Blood by Automated countOrdered By: Jesus Gonzalez on 05-26-2025 Nucleated RBC Auto Ql (Bld)0.1 /100{WBC}0-0.5FMarietta Osteopathic Clinic Phosphate [Mass/volume] in Serum or PlasmaOrdered By: Jesus Gonzalez on 05-26-2025 Phosphate [Mass/Vol]3.8 mg/dLNormal2.5-4.5FMarietta Osteopathic Clinic Comment on above:Order Comment: FASTING.JKWPerformed By: #### LIPID, [id number], TSH3, T3F, FE PRO, [id number], T4T, MG, A1C WTH eA, CBC, PHOS #### [facility] [address] [place] [address] #### INSULIN #### [facility] ,Platelet mean volume [Entitic volume] in Blood by Automated countOrdered By: Jesus Gonzalez on 17-18-2404Hjyldptt mean volume (Bld) [Entitic vol]8.3 fLNormal 6.3-10.7FMarietta Osteopathic ClinicComment on above:Order Comment: FASTING.JKWPerformed By: #### LIPID, [id number], TSH3, T3F, FE PRO, [id number], T4T, MG, A1C WTH eA, CBC, PHOS #### [facility] [address] [place] [address] [place] #### INSULIN #### [facility] ,Platelets [#/volume] in Blood by Automated countOrdered By: Jesus Gonzalez on 82-35-5527Dxclwmogf (Bld) [#/Vol]421 10*3/aWFfmuiq795-113CdwctxenxAdena Pike Medical CenterComment on above:Order Comment: FASTING.JKWPerformed By: #### LIPID, [id number], TSH3, T3F, FE PRO, [id number], T4T, MG, A1C WTH eA, CBC, PHOS #### [facility] [address] [place] [address] [place] #### INSULIN #### [facility] ,Potassium [Moles/volume] in Serum or PlasmaOrdered By: Jesus Gonzalze on 09-45-3040Lershezdp [Moles/Vol]4.6 mmol/LNormal3.5-5.1FMarietta Osteopathic ClinicComment on above:Performed By: #### LIPID, [id number], TSH3, T3F, FE PRO, [id number], T4T, MG, A1C WTH eA, CBC, PHOS #### [facility] [address] [place] [address] [place] #### INSULIN #### [facility] ,Protein [Mass/volume] in Serum or PlasmaOrdered By: Jesus Gonzalez on 05-26-2025 Protein [Mass/Vol]6.5 g/dLNormal6.4-8.9Adena Pike Medical CenterComment on above:Performed By: #### LIPID, [id number], TSH3, T3F, FE PRO, [id number], T4T, MG, A1C WTH eA, CBC, PHOS #### [facility] [address] [place] [address] [place] #### INSULIN #### [facility] ,Serum globulin measurement by calculation (mass/volume)Ordered By: Jesus Gonzalez on 58-74-4659Whixmaep (S) [Mass/Vol]2.3 g/dLNormalAdena Pike Medical CenterComment on above:Performed By: #### LIPID, [id number], TSH3, T3F, FE PRO, [id number], T4T, MG, A1C WTH eA, CBC, PHOS #### [facility] [address] [place] [address] [place] #### INSULIN #### [facility] ,Serum or plasma albumin/globulin mass ratioOrdered By: Jesus Gonzalez on 03-97-1257Rfvzxgr/Globulin [Mass ratio]1.8 {ratio}[facility] HospitalComment on above:Performed By: #### LIPID, [id number], TSH3, T3F, FE PRO, [id number], T4T, MG, A1C WTH eA, CBC, PHOS #### [facility] [address] [place] [address] #### INSULIN #### [facility] ,Serum or plasma anion gap determinationOrdered By: Jesus Gonzalez on 05-26-2025 Anion gap [Moles/Vol]13.2 mmol/LNormal6.0-15.0[facility] Comment on above:Performed By: #### LIPID, [id number], TSH3, T3F, FE PRO, [id number], T4T, MG, A1C WTH eA, CBC, PHOS #### [facility] [address] [place] [address] #### INSULIN #### [facility] ,Serum or plasma insulin measurement (units/volume)Ordered By: Jesus Gonzalez on 74-34-6677Rjkbsjl Qn15.6 u[iU]/mL2.6-24.9[facility] Comment on above:Performed at: - [facility] [address] Director: Maxim Daniel PhD, Phone: [phone] or plasma iron binding capacity measurement (mass/volume)Ordered By: Jesus Gonzalez on 56-23-6293Cknm binding capacity [Mass/Vol]442 ug/kF373-417SpkfysfprOhioHealth Hardin Memorial Hospitalerum or plasma iron saturation measurement (mass fraction)Ordered By: Jesus Gonzalez on 88-84-3509Ugnu saturation [Mass fraction]10.2 %Vfu16-90 [facility] Hardin Memorial Hospitalerum or plasma total cholesterol/high density lipoprotein (HDL) cholesterol mass ratOrdered By: Jesus Gonzalez on 05-26-2025 Cholesterol.total/Cholesterol in HDL [Mass ratio]3.1 {ratio}Normal<5.0Adena Pike Medical CenterComment on above:Order Comment: FASTING.JKWPerformed By: #### LIPID, [id number], TSH3, T3F, FE PRO, [id number], T4T, MG, A1C WTH eA, CBC, PHOS #### [facility] [address] [place] [address] #### INSULIN #### [facility] ,Sodium [Moles/volume] in Serum or PlasmaOrdered By: Jesus Carlos on 05-26-2025 Sodium [Moles/Vol]138 mmol/DNimdne965-996PbpjvrbinAdena Pike Medical Center Comment on above:Performed By: #### LIPID, [id number], TSH3, T3F, FE PRO, [id number], T4T, MG, A1C WTH eA, CBC, PHOS #### [facility] [address] [place] [address] #### INSULIN #### [facility] ,Thyrotropin [Units/volume] in Serum or PlasmaOrdered By: Jesus Carlos on 25-74-6655RIC Qn4.15 m[IU]/LNormal0.45-5.33[facility] Comment on above:Order Comment: FASTING.JKWPerformed By: #### LIPID, [id number], TSH3, T3F, FE PRO, [id number], T4T, MG, A1C WTH eA, CBC, PHOS #### [facility] [address] [place] [address] #### INSULIN #### [facility] ,Thyroxine (T4) [Mass/volume] in Serum or PlasmaOrdered By: Jesus Carlos on 88-92-5825M2 [Mass/Vol]11.24 ug/dLNormal5.39-11.82Adena Pike Medical CenterComment on above:Order Comment: FASTING.JKWPerformed By: #### LIPID, [id number], TSH3, T3F, FE PRO, [id number], T4T, MG, A1C WTH eA, CBC, PHOS #### [facility] [address] [place] [address] #### INSULIN #### [facility] ,Transferrin [Mass/volume] in Serum or PlasmaOrdered By: Jesus Gonzalez on 54-30-2890Bmedfxdjvbj [Mass/Vol]316 mg/gJKufyzv131-616UrjhwiswdAdena Pike Medical CenterComment on above:Order Comment: FASTING.OgKWPerformed By: #### LIPID, [id number], TSH3, T3F, FE PRO, [id number], T4T, MG, A1C WTH eA, CBC, PHOS #### [facility] [address] [place] [address] #### INSULIN #### [facility] ,Triglyceride [Mass/volume] in Serum or PlasmaOrdered By: Jesus Gonzalez on 21-10-1391Bcloypewlxta [Mass/Vol]239 mg/dLHigh0-149Adena Pike Medical CenterComment on above:TRIG ATP III CLASSIFICATIONTRIG less than 150 mg/dL NormalTRIG 150-199 mg/dL Borderline highTRIG 200-500 mg/dL High TRIG greater than 500 mg/dL Very highStandard traceable to the Center for Disease Conrtrol and Prevention (CDC) test method.Triiodothyronine (T3) Freeon 05-26-2025 Triiodothyronine (T3) Free3.72 pg/mLNormal2.50-3.90[facility] Comment on above:Order Comment: FASTING.OgKAziza Comment: PERFORMED BY: [place] [address] PATHOLOGIST FASTENER SEWING MACHINE OPERATOR BERNARDINO HAMILTON M.D.Performed By: #### LIPID, [id number], TSH3, T3F, FE PRO, [id number], T4T, MG, A1C WTH eA, CBC, PHOS #### [facility] [address] [place] [address] #### INSULIN #### [facility] ,Triiodothyronine (T3) Free [Mass/volume] in Serum or PlasmaOrdered By: Jesus Gonzalez on 94-24-5946Dlez T3 [Mass/Vol]3.72 pg/mL2.50-3.90Adena Pike Medical CenterUrea nitrogen [Mass/volume] in Serum or PlasmaOrdered By: Jseus Gonzalez on 1977Nlce nitrogen [Mass/Vol]15 mg/dLNormal7-25Adena Pike Medical CenterComment on above:Performed By: #### LIPID, [id number], TSH3, T3F, FE PRO, [id number], T4T, MG, A1C WTH eA, CBC, PHOS #### [facility] [address] [place] [address] [place] #### INSULIN #### [facility] ,Vit. B12/Folate Profileon 55-48-3102Cwjlqn46.0 ng/mLNormal>5.9The [facility] Physician GroupComment on above:Order Comment: FASTING.[employer] Comment: Folate reference range: >5.9 ng/ml The WHO technical consultation on folate and vitamin b12 deficiencies has determined that folate concentrations less than 4 ng/ml are considered deficient.Performed By: #### LIPID, [id number], TSH3, T3F, FE PRO, [id number], T4T, MG, A1C WTH eA, CBC, PHOS #### [facility] [address] [place] [address] [place] #### INSULIN #### [facility] ,Vitamin B12 ser/plasOrdered By: Jesus Smithpiedad on 81-32-3745Otpxoetcc (Vitamin B12) [Mass/Vol]484 pg/kWFcirot680-960XgcyymtgcAdena Pike Medical CenterComment on above:Order Comment: FASTING.JKWPerformed By: #### LIPID, [id number], TSH3, T3F, FE PRO, [id number], T4T, MG, A1C WTH eA, CBC, PHOS #### [facility] [address] [place] [address] [place] #### INSULIN #### [facility] ,Vitamin D 25 Hydroxy Totalon 03-59-6819Ctnbakz D 25 Hydroxy Total31.9 ng/mL Wqbfcd91-176Sgi [facility] Physician GroupComment on above:Order Comment: FASTING.OgKAziza Comment: VITAMIN D STATUS 25(OH)VITAMIN D RANGE (ng/mL) Deficient <20 Insufficient 20 to <30 Sufficient 30 to 100 Reference: Anum Berry, Brynn APARICIO, et al. Evaluation,treatment, and prevention of vitamin D deficiency; an Endocrine Society clinical practice guideline. JCEM. 2010; 96(7):1911-30. PERFORMED BY: [facility] [address] [place] [address] PATHOLOGIST FASTENER SEWING MACHINE OPERATOR BERNARDINO HAMILTON M.D.Performed By: #### LIPID, [id number], TSH3, T3F, FE PRO, [id number], T4T, MG, A1C WTH eA, CBC, PHOS #### [facility] [address] #### INSULIN #### [facility] ,Vitamin D+Metabolites [Mass/volume] in Serum or PlasmaOrdered By: Jesus Gonzalez on 72-54-8663Bnsdchm D+Metabolites [Mass/Vol]31.9 ng/jT30-226ZxhzfryzbAdena Pike Medical CenterComment on above:VITAMIN D STATUS 25(OH)VITAMIN D RANGE (ng/mL) Deficient <20 Insufficient 20 to <99Chsmzdwefp41 to 100Reference: Anum Berry, Brynn APARICIO, et al. Evaluation,treatment, and prevention of vitamin D deficiency; an Endocrine Society clinical practice guideline. JCEM. 2010; 96(7):1911-30.CNOVon 79-17-0983POOFNnacxt Visit (NSCAMN) KOURTNEY NOVAK ([id number]) 1975 F Date Time Provider Department 03/15/25 12:[address] [facility] During your visit today, we recorded the following information about you: Pulse Respiration Blood pressure Weight 82/minute 18/minute 156/79 111.3 kg Bess Do MA 03/15/2025 12:44 PM Signed Additional intake questions: Has the patient had fever, nausea, vomiting, diarrhea, constipation, fatigue for > 1 week? No Does the patient have a decreased appetite? No Does patient want to see a Salesperson Floor Coverings? No (yes to any of above refer [...] and [facility] AND [facility] CC: Patient Care Team: Jesus Gonzalez MD as PCP - General (Family Medicine) Jesus Gonzalez MD as Referring (Family Medicine) Jesus Gonzalez MD as Referring (Family Medicine) ASSESSMENT: [...] changes. PLAN: - [facility]. - Bactrim DS x [...] mg tablet pioglitazone (A (more content not included)...[facility]St. [facility] 35-13-3589XEWGVckvznihe (NSCAMN) KOURTNEY NOVAK ([id number]) 1975 F Date Time Provider Department 03/08/[address] [facility] During your visit today, we recorded the following information about you: Shakila Phillips RN 03/08/2025 4:19 PM Signed Allergies [...] Post-op pain [G89.18] 02/22/2025 Encounter Status:Closed by SHAKILA PHILLIPS on 03/08/25[facility] 87-82-0590OJVBEGQWmnbt Visit (NSCAMN) KOURTNEY NOVAK ([id number]) 1975 F Date Time Provider Department 03/06/25 10:30 AM SHAKILA PHILLIPS [facility] During your visit today, we [...] No Does patient want to see a Salesperson Floor Coverings? No (yes to any of above refer [...] request and reach out to her through On[employer] with a reply. Shakila Phillips RN, Roll Forger Allergies As of Date: 03/06/2025 (No Known Allergies) Date Reviewed: 03/06/2025 Reviewed by: Britton Tamez LPN - Fully Assessed Reason for Visit: Post Op [174] Primary Visit Diagnosis:S/P craniotomy [Z98.890] Other Visit Diagnoses:Intracranial meningioma (HCC) [D32.0] Postop check [Z09] Prescriptions [...] capsule Take 24 mcg (more content not included)...[id number] ([facility]) KOURTNEY [id number]) 1975 F Date Time Provider Department 02/23/25 SHAKILA PHILLIPS [facility] During your visit today, we recorded the following information about you: Kaci Maya 02/23/2025 9:48 AM Signed General Call Caller : Pt Contact Reason for Call : Pt has question regards oxycodone meds. Patient requesting return call ? Yes Shakila Phillips RN 02/23/2025 11:30 AM Signed General Call Caller : Pt Contact Reason for Call : Pt has question regards oxycodone meds. Patient requesting return call ? 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 Reviewed med list and sent patient a [employer] message for alternating Ibuprofen and Tylenol for headache/pain as needed Confirmed postop appointments Patient was made aware to reach out for questions/ concerns/updates. Shakila Phillips RN, Roll Forger Allergies As of Date: 02/23/2025 (No Known Allergies) Date Reviewed: 02/22/2025 Reviewed by: Clarisa Mccurdy, VENUS - Fully Assessed Reason for Visit: Surgical [...] Post-op pain [G89.18] 02/22/2025 Encounter Status:Closed by SHAKILA PHILLIPS on 02/23/25[facility] [id number] HEALTHHNO ID: [id number] Author: ANNALISA ENRIQUEZ Chaplain Service: Spiritual Care Author Type: Recreation Specialist Type: Allied Health Filed: 02/22/2025 15:39 Note Text: SPIRITUALCARE Spiritual Care Visit- Brief Note Name: Kourtney Novak Date: February 22, 2025 Notes: The peer educator met with the patient's family at the bedside, introducing himself and providing information about the availability of spiritual care services. The patient expressed gratitude for the visit but declined any support for the moment. Follow-up will be provided as circumstances allow. [place] [phone]. Recreation Specialist services are available 06/04. SIGNATURE: Chaplain Hiro PATIENT NAME: Kourtney Novak DATE: February 22, 2025 TIME: 3:39 PM This is an electronically created document. IF PRINTED, PLEASE DO NOT REMOVE FROM THE CHART OR MODIFY PRINTED COPY.Normal [facility] [id number] ID: [id number] Author: ERIK PINEDA MD Service: Neurosurgery Author [...] Physician: Erik Pineda M.D. - Office PCP: Jesus Gonzalez MD [phone] Treatment Team: Attending Provider: Erik Pineda MD [...] The patient was electively admitted to the [facility]. After being optimized for surgery by [...] The patient was then transferred up to [facility]/H060-36 hospital room for postoperative management. Patient was [...] Information Primary Emergency Contact: Christiano Saini Address: [address] [place] [address] Mobile Relation: Son Secondary Emergency Contact: Laith Saini Address: [address] [place] [address] Mobile Relation: Son ALLERGIES: ALLERGIES No Known Allergies HOME MEDICATIONS: Medication List START taking these medications acetaminophen 325 mg tablet Commonly known as: TYLENOL 2 tablets by ORAL/FEEDING TUBE rou (more content not included)...NormalSt. Anthony'S HospitalTHERAPY NTon [id number] NTHNO ID: [id number] Author: OLIVIA WOLFF, PT Service: Physical Therapy Author Type: Physical Therapist Type: Therapy (PT/OT/Speech/Resp) Filed: 02/22/2025 13:12 Note Text: PHYSICAL THERAPY MISSED VISIT SERVICE DATE: 02/22/2025 SERVICE TIME: 1140 ROOM: [place] [address] Patient not seen due to Declined to Participate. Pt denies concerns for home going, declines stair training before d/c. No further acute PT needs, all concerns addressed. PT to sign off. SIGNATURE: Olivia Wolff PT PATIENT NAME: Kourtney Novak DATE: February 22, 2025 TIME: 1:11 PMNormalBarnesville Hospital NTHNO ID: [id number] Author: EUN HARP OT/L Service: Occupational Therapy Author Type: Occupational Therapist Type: Therapy (PT/OT/Speech/Resp) Filed: 02/22/2025 11:37 Note Text: Occupational Therapy Evaluation Summary SERVICE DATE: 02/22/2025 SERVICE TIME: 1059 to 1122 ROOM: [place] [address] OT 6 Clicks Score: 24 DISCHARGE RECOMMENDATIONS [...] as a result of the edema. 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 Denies falls. Lives with adult [...] daily living (ADL) TREATMENT INTERVENTIONS Evaluation, Self Half-Way Management (38161) Timed Code Treatment (minutes): 8 Skilled Treatment Time (minutes): 23 TRAINING AND EDUCATION PROVIDED Activity Adaptation/Compensatory Strategies, Benefits of In-Hospital Mobility, Disease Specific Education, Discharge Planning, Expected Functional Level, Functional Mobility Involving ADLs, Lower Extremity Dressing, Pain Management, Precautions/Restrictions, Role of Occupational Therapy, Standing Balance to Improve [place] with ADLs/Self-Care, Transfer - Sit to Stand, [...] Novak DATE: February 22, 2025 TIME: 11:36 [facility] [id number] HEALTHHNO ID: [id number] Author: TIM ALTAMIRANO Student Service: Spiritual Care [...] REMOVE FROM THE CHART OR MODIFY PRINTED COPY.Normal [facility] ID: [id number] Author: TRIPP DALLAS RT(R) Service: Radiology Author Type: Front End Manager Type: Allied Health Filed: 02/21/2025 10:15 Note [...] PATIENT PRESENTS WITH AN IMPLANTABLE OR ATTACHED RUBBER DOWN: No RADIOLOGY DEPARTMENT: MR; Exam(s) Completed: Head: Routine Brain. Lavender Administered: Yes PERIPHERAL IV DATA: Inpatient: see LDA documentation SIGNED BY: RT Kenneth(R) February 21, 2025 9:22 [facility] metabolic 2000 panel on 50-20-1708Byfkp gap [Moles/Vol]13 mmol/LNormal8-15[facility] Comment on above:Order Comment: Specimen Type: BLOOD SPECIMENOrdering Facility: [facility] Address:[address] [place] [address] Performed By: #### 61745-0 ####[facility] LABCLIA [id number] [facility] [place] [id number] [place] Calcium [Mass/Vol]8.8 mg/dLNormal8.5-10.2CBellevue HospitalComment on above:Order Comment: Specimen Type: BLOOD SPECIMENOrdering Facility: [facility] Address:[address] [place], [place] [address]Performed By: #### 51935-1 ####[facility] LABCLIA [id number] [place] [address] [place] AMERICAChloride [Moles/Vol] 105 mmol/KGivrzk69-120IkioidhfrSt. Anthony'S HospitalComment on above:Order Comment: Specimen Type: BLOOD SPECIMENOrdering Facility: [facility] Address:[address] [place], [place] [address]Performed By: #### 47163-5 ####[facility] LABCLIA [id number] [place] [address] [place] AMERICACO2 [Moles/Vol]20 mmol/AXic92-06 St[facility]'S HospitalComment on above:Order Comment: Specimen Type: BLOOD SPECIMENOrdering Facility: [facility] Address:[address] [place], [place] [address]Performed By: #### 84172-3 ####[facility] LABCLIA [id number] [place] [id number] [place] AMERICACreatinine [Mass/Vol]0.75 mg/dLNormal0.58-0.96[facility] Comment on above:Order Comment: Specimen Type: BLOOD SPECIMENOrdering Facility: [facility] Address:[address] [place] [address] Performed By: #### 16909-6 ####[facility] LABCLIA [id number] [place] [address] [place] Creatinine and Glomerular filtration rate.predicted panel (S/P/Bld)99 mL/min/1.73m???Normal>=60[facility] on above:Order Comment: Specimen Type: BLOOD SPECIMENOrdering Facility: [facility] Address:[address] [place], [place] [address]Result Comment: Estimated Glomerular Filtration Rate (eGFR) is calculated using the 2020 CKD-EPI cre atinine equation. This equation utilizes serum creatinine, sex, and age as parameters. The creatinine assay has traceable calibration to isotope dilution- mass spectrometry. Refer to KDIGO guidelines for clinical interpretation. In patients with unstable renal function, e.g. those with acute kidney injury, the eGFR may not accurately reflect actual GFR.Performed By: #### 74868-2 ####[facility] LABIA [id number] [place] [address] [place] AMERICAGlucose [Mass/Vol]131 mg/dLHigh 74-99[facility] on above:Order Comment: Specimen Type: BLOOD SPECIMENOrdering Facility: [facility] Address:[address] [place], [place] [address]Result Comment: The [place] Diabetes Association (ADA) provides guidance for cutoff [...] Standards of Medical Care in Diabetes 2016, [place] Diabetes Association. Diabetes Care. 2016.39(Suppl 1).Performed By: #### 96404-8 ####[facility] LABCLIA [id number] [address] [place] [address] [place] AMERICAPotassium [Moles/Vol]4.2 mmol/L Normal3.7-5.1ClevelSumma Health Barberton Campus on above:Order Comment: Specimen Type: BLOOD SPECIMENOrdering Facility: [facility] Address:[address] [place], [place] [address]Performed By: #### 10400-4 ####[facility] LABCLIA [id number] [place] [address] [place] [facility]ALSodium [Moles/Vol]138 mmol/PTukhki811-104QlkhladjfBellevue Hospital on above:Order Comment: Specimen Type: BLOOD SPECIMENOrdering Facility: [facility] Address:[address] [place], [place] [address]Performed By: #### 07586-2 ####[facility] LABCLIA [id number] [place] [address] [place] AMERICAUrea nitrogen [Mass/Vol]8 mg/dLNormal7-21[facility] Comment on above:Order Comment: Specimen Type: BLOOD SPECIMENOrdering Facility: [facility] Address:[address] [place] [address] Performed By: #### 79598-0 ####[facility] LABCLIA [id number] [place] [address] [place] CBC W Auto Differential panel (Bld)on 19-92-3457Olvwsxjix (Bld) [#/Vol]10*3/uL Normal<0.11ClevelSumma Health Barberton Campus on above:Order Comment: Specimen Type: BLOOD SPECIMENOrdering Facility: [facility] Address:[address] [place], [place] [address]Performed By: #### 63331-3 ####[facility] LABCLIA [id number] [place] [address] [place] AMERICABasophils/100 WBC (Bld)0.1 %NormalBellevue Hospital on above:Order Comment: Specimen Type: BLOOD SPECIMENOrdering Facility: [facility] Address:[address] [place], [place] [address]Performed By: #### 13159-7 ####[facility] LABCLIA [id number] [place] [address] [place] Differential cell count method Nom (Bld)AutoNormalClevelMaria Parham Health Comment on above:Order Comment: Specimen Type: BLOOD SPECIMENOrdering Facility: [facility] Address:[address] [place] [address] Performed By: #### 98571-8 ####[facility] LABCLIA [id number] [place] [address] [place] Eosinophils (Bld) [#/Vol]10*3/uLNormal<0.46[facility] on above:Order Comment: Specimen Type: BLOOD SPECIMENOrdering Facility: [facility] Address:[address] [place], [place] [address]Performed By: #### 97130-6 ####[facility] LABIA [id number] [place] [address] [place] AMERICAEosinophils/100 WBC (Bld)0.0 %NormalBellevue Hospital on above:Order Comment: Specimen Type: BLOOD SPECIMENOrdering Facility: [facility] Address:[address] [place], [place] [address]Performed By: #### 71614-2 ####[facility] LABCLIA [id number] [place] [address] [place] AMERICAErythrocyte distribution width (RBC) [Ratio]13.2 %Zbouhp31.5-15.0[facility] on above: Order Comment: Specimen Type: BLOOD SPECIMENOrdering Facility: [facility] Address:[address] [place], [place] [address]Performed By: #### 93498- 8 ####[facility] LABCLIA [id number] [place] [address] [place] AMERICAHematocrit (Bld) [Volume fraction]34.6 %Low36.0-46.0[facility] on above:Order Comment: Specimen Type: BLOOD SPECIMENOrdering Facility: [facility] Address:[address] [place], [place] [address]Performed By: #### 19833- 8 ####[facility] LABIA [id number] [place] [address] [place] AMERICAHemoglobin (Bld) [Mass/Vol]11.2 g/dLLow11.5-15.5COhioHealth Grady Memorial Hospital on above:Order Comment: Specimen Type: BLOOD SPECIMENOrdering Facility: [facility] Address:[address] [place], [place] [address]Performed By: #### 27072-9 ####[facility] LABIA [id number] [place] [address] [place] AMERICAImmature granulocytes (Bld) [#/Vol]0.05 10*3/uLNormal<0.10[facility] on above:Order Comment: Specimen Type: BLOOD SPECIMENOrdering Facility: [facility] Address:[address] [place], [place] [address]Performed By: #### 51467- 8 ####[facility] LABIA [id number] [place] [address] [place] AMERICAImmature granulocytes/100 WBC (Bld)0.4 %NormalBellevue Hospital on above:Order Comment: Specimen Type: BLOOD SPECIMENOrdering Facility: [facility] Address:[address] [place], [place] [address]Performed By: #### 78521-5 ####[facility] LABCLIA [id number] [place] [address] [place] AMERICALymphocytes (Bld) [#/Vol]0.87 10*3/uLLow1.00-4.00[facility] on above:Order Comment: Specimen Type: BLOOD SPECIMENOrdering Facility: [facility] Address:[address] [place], [place] [address]Performed By: #### 79576-0 ####[facility] LABIA [id number] [place] [address] [place] AMERICALymphocytes/100 WBC (Bld)6.8 % NormalBellevue Hospital on above:Order Comment: Specimen Type: BLOOD SPECIMENOrdering Facility: [facility] Address:[address] [place], [place] [address]Performed By: #### 44102-3 ####[facility] LABIA [id number] [place] [address] [place] AMERICAMCH (RBC) [Entitic mass]29.7 ydDrfmee53.0-34.0[facility] on above:Order Comment: Specimen Type: BLOOD SPECIMENOrdering Facility: [facility] Address:[address] [place], [place] [address]Performed By: #### 26784-2 ####[facility] LABIA [id number] [place] [address] [place] MCHC (RBC) [Mass/Vol]32.4 g/bSMxwnyx15.5-36.0[facility] on above:Order Comment: Specimen Type: BLOOD SPECIMENOrdering Facility: [facility] Address:[address] [place] [address] Performed By: #### 74603-5 ####[facility] LABIA [id number] [place] [address] [place] MCV (RBC) [Entitic vol]91.8 iGDfrdul89.0-100.0[facility] on above:Order Comment: Specimen Type: BLOOD SPECIMENOrdering Facility: [facility] Address:[address] [place] [address] Performed By: #### 46675-6 ####[facility] LABCLIA [id number] [place] [address] [place] Monocytes (Bld) [#/Vol]0.94 10*3/uLHigh<0.87[facility] on above:Order Comment: Specimen Type: BLOOD SPECIMENOrdering Facility: [facility] Address:[address] [place], [place] [address]Performed By: #### 74132-9 ####[facility] LABCLIA [id number] [place] [address] [place] AMERICAMonocytes/100 WBC (Bld)7.3 %NormalBellevue Hospital on above:Order Comment: Specimen Type: BLOOD SPECIMENOrdering Facility: [facility] Address:[address] [place], [place] [address]Performed By: #### 64276-0 ####[facility] LABIA [id number] [place] [address] [place] AMERICANeutrophils (Bld) [#/Vol]10.95 10*3/uLHigh1.45-7.50[facility] on above:Order Comment: Specimen Type: BLOOD SPECIMENOrdering Facility: [facility] Address:[address] [place], [place] [address]Performed By: #### 01446-6 ####[facility] LABCLIA [id number] [place] [address] [place] AMERICANeutrophils/100 WBC (Bld)85.4 % NormalBellevue Hospital on above:Order Comment: Specimen Type: BLOOD SPECIMENOrdering Facility: [facility] Address:[address] [place], [place] [address]Performed By: #### 01332-1 ####[facility] LABCLIA [id number] [place] [address] [place] AMERICANucleated RBC (Bld) [#/Vol]10*3/uLNormal<0.01[facility] on above:Order Comment: Specimen Type: BLOOD SPECIMENOrdering Facility: [facility] Address:[address] [place], [place] [address]Performed By: #### 41415-3 ####[facility] LABIA [id number] [place] [address] [place] Nucleated RBC/100 WBC (Bld) [Ratio]0.0 /100 WBCNormalCBellevue Hospital Comment on above:Order Comment: Specimen Type: BLOOD SPECIMENOrdering Facility: [facility] Address:[address] [place] [address] Performed By: #### 78269-0 ####[facility] LABIA [id number] [place] [address] [place] Platelet mean volume (Bld) [Entitic vol]10.5 fLNormal9.0-12.7COhioHealth Grady Memorial Hospital on above:Order Comment: Specimen Type: BLOOD SPECIMENOrdering Facility: [facility] Address:[address] [place], [place] [address]Performed By: #### 59696-4 ####[facility] LABIA [id number] [place] [address] [place] Platelets (Bld) [#/Vol]309 10*3/rWKpooez646-889SjkwjyzdfBellevue Hospital on above:Order Comment: Specimen Type: BLOOD SPECIMENOrdering Facility: [facility] Address:[address] [place] [address] Performed By: #### 82860-7 ####[facility] LABIA [id number] [place] [address] [place] RBC (Bld) [#/Vol]3.77 10*6/uLLow3.90-5.20[facility] on above:Order Comment: Specimen Type: BLOOD SPECIMENOrdering Facility: [facility] Address:[address] [place] [id number] By: #### 52863-9 ####[facility] LABIA [id number] [place] [address] [place] AMERICAWBC (Bld) [#/Vol]12.82 10*3/uLHigh3.70-11.00St. Anthony'S HospitalComment on above:Order Comment: Specimen Type: BLOOD SPECIMENOrdering Facility: [facility] Address:[address] [place], [place] [address]Performed By: #### 91826-8 ####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 No residual mass or pathologic enhancement. Client Relations Specialist: GUANACO Transcribe Date/Time: Feb 21 2025 11:17A Dictated by : CHIKA RUBY MD This examination was interpreted and the report reviewed and electronically signed by: TOMAS TAMEZ MD on Feb 21 2025 11:58AM EST [id number] Clinic PROGon [facility]-21-2025 NURSING PRONO ID: [id number] Author: MICHELLE BAEZ RN Service: Nursing Author [...] YES IV SITE: Inpatient - refer to [facility] documentation PERIPHERAL IV ACCESS: Inpatient see [facility] documentation ANXIOLYSIS/ANESTHESIA: Ativan 1 mg IV. Ok to give per radiologist Dr Neri PATIENT DISCHARGED TO: Patient transferred to [facility]. Report called to RN. SIGNED BY: Michelle Baez RN February 21, 2025 10:07 [facility] PRONO ID: [id number] Author: MICHELLE BAEZ RN Service: Nursing Author [...] IV SITE APPEARANCE: Clean,Dry and Intact SIGNATURE: Michlele Baez RN PATIENT NAME: Kourtney Novak DATE: February 21, 2025 TIME: 9:09 [facility] HospitalNUTRITIONon [id number] ID: [id number] Author: ZULEMA SUMMERS RD Service: Nutrition Therapy Author Type: Registered Dietitian Type: Nutrition Filed: 02/21/2025 17:21 Note Text: NUTRITION THERAPY SCREEN NOTE SERVICE DATE: 02/21/2025 SERVICE TIME: Start Time: 1305 Care Plan: Continue current diet (carb controlled) Refer to: [employer] Service Mechanic to Follow Discharge Recommendations: Diet Diet: carb [...] : 1 unit Time Spent (mins): 3 SIGNATURE:Zulema Summers RDN, LD, MS, 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 Denies falls. Lives with adult son and brother who both work and are IND in the home. SUBJECTIVE Agreeable to PT THERAPY DIAGNOSIS Reduced mobility-other TREATMENT INTERVENTIONS Evaluation, Gait Training (19866) Timed Code Treatment (minutes): 8 Skilled Treatment Time (minutes): 23 TRAINING AND EDUCATION PROVIDED Advanced Balance Activities, Assistive Device Use, Bed Mobility, Benefits of In-Hospital Mobility, Discharge Planning, Disease Specific Education, Energy Conservation, Equipment, Exercise Program, Expected Functional Level, Falls Prevention, Gait Pattern, Reduction of Deviations, Handout Issued, Home Safety, Home Set-up/Modifications, Pain Neuroscience, Patient Exercise/Therapy Program Support Needs, Positioning, Precautions/Restrictions, Role of Physical Therapy, Sitting Balance, Standing [...] Assistance Gait Device: Wheeled Walker, None General Deviations/Observations: Elizabeth decreased, Wide base of support, Step [...] Novak DATE: February 21, 2025 TIME: 12:40 PMNormalSt. Anthony'S HospitalANES POSTPROC EVALon 02-20-2025 ANES POSTPROC EVALHNO ID: [id number] Author: ZARA RAMACHANDRAN DO Service: ? Author Type: Anesthesiologist Type: Anesthesia Postprocedure Evaluation Filed: 02/20/2025 18:52 Note Text: POST ANESTHESIA EVALUATION NOTE : 1975 Procedure Summary Date: 02/20/25 Room / Location: [address] [facility] Anesthesia Start: 1221 Anesthesia Stop: 1641 Procedures: ORBITOCRANIAL TO ANT CRAN FOSSA W/ SUPRAORB RIDGE OSTEOTOMY AND ELEV FRONTANDTEMP LOBE (Right: Brain) RESECTION LESION BASE OF ANTERIOR CRANIAL FOSSA INTRADURAL W/ DURAL REPAIR (Right: Brain) Diagnosis: Intracranial meningioma (HCC) Preop testing (Intracranial meningioma (HCC) [D32.0]) (Preop testing [Z01.818]) Surgeons: Erik Pineda MD Responsible Provider: Zara Ramachandran DO Anesthesia Type: general ASA Status: [...] of care. Anesthesia Observations No Documentation SIGNATURE: Zara Ramachandran DO PATIENT NAME: Kourtney Novak DATE: February 20, 2025 TIME: 6:17 PM CSN: [id number] Hospital PRE-OPon [id number] PRE-OPHNO ID: [id number] Author: ZARA RAMACHANDRAN DO Service: ? Author Type: Anesthesiologist [...] and consent discussed: yes. Patient / Responsible Alliance Party agrees to proceed: yes Patient / [...] obtained within 48 hours of Surgery/Procedure. SIGNATURE: Zara Ramachandran DO PATIENT NAME: Kourtney Novak DATE: February 20, 2025 TIME: 12:10 PM CSN: [id number] HospitalARTERIAL BLOOD GASES WITH IONIZED MAGNESIUMon 21-72-6312Ehbr deficit (BldA) [Moles/Vol]-4 mmol/ZHak-3-4OqruncwhtSt. Anthony'S HospitalComment on above:Order Comment: Specimen Type: ARTERIAL BLOOD SPECIMENOrdering Facility: [facility] Address: [address] [place], [place] [address]Performed By: #### ALLMG ####[facility] LABCLIA [id number] [address] [facility] [address] [address] [place] AMERICACalcium.ionized (Bld) [Mass/Vol] 1.11 mmol/LNormal1.08-1.30St. Anthony'S HospitalComment on above:Order Comment: Specimen Type: ARTERIAL BLOOD SPECIMENOrdering Facility: [facility]ITALAddress: [address] [place], [place] [address]Performed By: #### ALLMG ####[facility] LABIA [id number] [place] [address] [place] AMERICACalcium.ionized adjusted to pH 7.4 (BldA) [Moles/Vol]1.12 mmol/LNormal1.08-1.30[facility] Comment on above:Order Comment: Specimen Type: ARTERIAL BLOOD SPECIMENOrdering Facility: [facility] HOSPITALAddress: [address] [place], [place] [address]Performed By: #### ALLMG ####[facility] LABIA [id number] [place] [address] [place] Carboxyhemoglobin (BldA) [Mass fraction]0.6 %Normal0.0-2.0[facility] HospitalComascension prov[facility] on above:Order Comment: Specimen Type: ARTERIAL BLOOD SPECIMENOrdering Facility: [facility]ITALAddress: [address] [place] [id number] Comment: Carboxyhemoglobin Reference Range for Smokers: 2.0-8.0%Performed By: #### ALLMG ####[facility] LABIA [id number] [place] [address] [place] AMERICACO2 (Bld) [Partial pressure]33 mm LoSww96-70UrjcfvzijSt. Anthony'S Hospital Comment on above:Order Comment: Specimen Type: ARTERIAL BLOOD SPECIMENOrdering Facility: [facility]Address: [address] [facility] [place] [id number] By: #### ALLMG ####[facility] LABCLIA [id number] [address] [place] [address] [place] CO2 adjusted to patient's actual temperature (Bld) [Partial pressure]33 mmHgLow 36-46St. Anthony'S HospitalComment on above:Order Comment: Specimen Type: ARTERIAL BLOOD SPECIMENOrdering Facility: [facility]ITALAddress: [address] [place], [place] [address]Performed By: #### ALLMG ####[facility] LABCLIA [id number] [address] [place] [address] [place] AMERICAGlucose [Mass/Vol]113 mg/lDPiwd97-141CpzvfxdbsWyandot Memorial HospitalComment on above:Order Comment: Specimen Type: ARTERIAL BLOOD SPECIMENOrdering Facility: [facility]ITALAddress: [address] [address]ENTER[place]ig[place], [place] [address]Performed By: #### ALLMG ####[facility] LABCLIA [id number] [address] [place] [address] [place] AMERICAHCO3 (Bld) [Moles/Vol]20 mmol/WUaz64-42SiroqcbpvSt. Anthony'S HospitalComment on above:Order Comment: Specimen Type: ARTERIAL BLOOD SPECIMENOrdering Facility: [facility]Address: [address] [place], [place] [address]Performed By: #### ALLMG ####[facility] LABCLIA [id number] [address] [place] [address] [place] Hematocrit (Bld) [Volume fraction]32.7 %Low36.0-46.0[facility] Comment on above:Order Comment: Specimen Type: ARTERIAL BLOOD SPECIMENOrdering Facility: [facility]Address: [address] [place] [id number] By: #### ALLMG ####[facility] LABCLIA [id number] [address] [place] [address] [place] Hemoglobin (Bld) [Mass/Vol]10.6 g/dLLow11.5-15.5CBellevue Hospital Comment on above:Order Comment: Specimen Type: ARTERIAL BLOOD SPECIMENOrdering Facility: [facility]ITALAddress: [address] [place], [place] [address]Jmbumpclz By: #### ALLMG ####[facility] LABCLIA [id number] [address] [address] [place] Lactate [Moles/Vol]1.0 mmol/LNormal0.5-2.2COhioHealth Grady Memorial Hospital on above:Order Comment: Specimen Type: ARTERIAL BLOOD SPECIMENOrdering Facility: [facility]Address: [address] [place] [address] Performed By: #### ALLMG ####[facility] LABIA [id number] [place] [id number] [place] AMERICAMagnesium [Moles/Vol]0.42 mmol/LLow0.45-0.60[facility] Hospitalment on above: Order Comment: Specimen Type: ARTERIAL BLOOD SPECIMENOrdering Facility: [facility]Address: [address] [place] [address] Performed By: #### ALLMG ####[facility] LABIA [id number] [place] [id number] [place] AMERICAMethemoglobin (Bld) [Mass fraction]2.1 %High0.0-1.5COhioHealth Grady Memorial Hospital on above: Order Comment: Specimen Type: ARTERIAL BLOOD SPECIMENOrdering Facility: [facility]Address: [address] [place] [address] Performed By: #### ALLMG ####[facility] LABIA [id number] [address] [address] [place] AMERICAOxygen (Bld) [Partial pressure]208 mm TgMloa17-44YvkqqznwpBellevue Hospital on above: Order Comment: Specimen Type: ARTERIAL BLOOD SPECIMENOrdering Facility: [facility]ITALAddress: [address] [place] [address] Performed By: #### ALLMG ####[facility] LABCLIA [id number] [address] [place] [address] [place] AMERICAOxygen adjusted to patient's actual temperature (Bld) [Partial pressure]208 llUxQvha11-97 [facility] on above:Order Comment: Specimen Type: ARTERIAL BLOOD SPECIMENOrdering Facility: [facility]ITALAddress: [address] [place], [place] [address]Performed By: #### ALLMG ####[facility] LABCLIA [id number] [address] [place] [address] [place] AMERICAOxyhemoglobin (BldA) [Mass fraction]96 %Normal 95-98[facility] on above:Order Comment: Specimen Type: ARTERIAL BLOOD SPECIMENOrdering Facility: [facility]ITALAddress: [address] [place], [place] [address]Performed By: #### ALLMG ####[facility] LABIA [id number] [address] [place] [address] [place] AMERICApH (Bld)7.41 [pH]Normal7.35-7.45[facility] on above:Order Comment: Specimen Type: ARTERIAL BLOOD SPECIMENOrdering Facility: [facility]ITALAddress: [address] [place] [id number] By: #### ALLMG ####[facility] LABIA [id number] [address] [place] [address] [place] AMERICApH adjusted to patient's actual temperature (Bld)7.86Ztbdua7.35-7.45 [facility] on above:Order Comment: Specimen Type: ARTERIAL BLOOD SPECIMENOrdering Facility: [facility]ITALAddress: [address] [place] [id number] By: #### ALLMG ####[facility] LABIA [id number] [address] [place] [address] [place] AMERICAPotassium [Moles/Vol]4.2 mmol/LNormal3.5-5.0 [facility] on above:Order Comment: Specimen Type: ARTERIAL BLOOD SPECIMENOrdering Facility: [facility]ITALAddress: [address] [place], [place] [address]Performed By: #### ALLMG ####[facility] LABCLIA [id number] [place] [id number] [place] AMERICASodium [Moles/Vol]137 mmol/WHztrsh978-257FedkcpslgBellevue Hospital on above:Order Comment: Specimen Type: ARTERIAL BLOOD SPECIMENOrdering Facility: [facility]ITALAddress: [address] [place], [place] [address]Performed By: #### ALLMG ####[facility] LABIA [id number] [place] [address] [place] AMERICABase deficit (BldA) [Moles/Vol]-3 mmol/NHyb-7-0IuphfmiyzBellevue Hospital on above:Order Comment: Specimen Type: ARTERIAL BLOOD SPECIMENOrdering Facility: [facility]ITALAddress: [address] [place], [place] [address]Performed By: #### ALLMG ####[facility] LABIA [id number] [place] [address] [place] AMERICACalcium.ionized (Bld) [Mass/Vol]1.20 mmol/LNormal1.08-1.30[facility] on above:Order Comment: Specimen Type: ARTERIAL BLOOD SPECIMENOrdering Facility: [facility]ITALAddress: [address] [place], [place] [address]Performed By: #### ALLMG ####[facility] LABIA [id number] [place] [id number] [place] AMERICACalcium.ionized adjusted to pH 7.4 (BldA) [Moles/Vol]1.19 mmol/LNormal 1.08-1.30[facility] on above:Order Comment: Specimen Type: ARTERIAL BLOOD SPECIMENOrdering Facility: [facility] Address: [address] [place], [place] [address]Performed By: #### ALLMG ####[facility] LABCLIA [id number] [address] STATES OF [facility] HOSPITALCarboxyhemoglobin (BldA) [Mass fraction]1.0 %Normal0.0-2.0[facility] HospitalComascension providence hospital on above:Order Comment: Specimen Type: ARTERIAL BLOOD SPECIMENOrdering Facility: [facility]ITALAddress: [address] [place], [place] [address]Result Comment: Carboxyhemoglobin Reference Range for Smokers: 2.0-8.0%Performed By: #### ALLMG ####[facility] LABCLIA [id number] [address] STATES OF [facility] HOSPITALCO2 (Bld) [Partial pressure]37 mm SeRzfzeb02-83SjwusvmolBellevue Hospital on above:Order Comment: Specimen Type: ARTERIAL BLOOD SPECIMENOrdering Facility: [facility] Address: [address] [place], [place] [address]Performed By: #### ALLMG ####[facility] LABCLIA [id number] [address] STATES OF AMERICACO2 adjusted to patient's actual temperature (Bld) [Partial pressure]37 xvRjZuzzna12-62JfoxyorqwSt. Anthony'S Hospital Comment on above:Order Comment: Specimen Type: ARTERIAL BLOOD SPECIMENOrdering Facility: [facility]ITALAddress: [address] [place], [place] [address]Performed By: #### ALLMG ####[facility] LABCLIA [id number] [place] [address] [place] Glucose [Mass/Vol]114 mg/vHWwru45-193VancwphweBellevue Hospital on above: Order Comment: Specimen Type: ARTERIAL BLOOD SPECIMENOrdering Facility: [facility]ITALAddress: [address] [place] [address] Performed By: #### ALLMG ####[facility] LABCLIA [id number] [place] [address] [place] AMERICAHCO3 (Bld) [Moles/Vol]21 mmol/AMud57-85PorsbsjahBellevue Hospital on above:Order Comment: Specimen Type: ARTERIAL BLOOD SPECIMENOrdering Facility: [facility]ITALAddress: [address] [place], [place] [address]Performed By: #### ALLMG ####[facility] LABCLIA [id number] [place] [address] [place] AMERICAHematocrit (Bld) [Volume fraction]35.4 %Low36.0-46.0[facility] on above:Order Comment: Specimen Type: ARTERIAL BLOOD SPECIMENOrdering Facility: [facility]ITALAddress: [address] [place], [place] [address]Performed By: #### ALLMG ####[facility] LABCLIA [id number] [place] [address] [place] AMERICAHemoglobin (Bld) [Mass/Vol]11.5 g/tUBpzvjc62.5-15.5COhioHealth Grady Memorial Hospital on above:Order Comment: Specimen Type: ARTERIAL BLOOD SPECIMENOrdering Facility: [facility]ITALAddress: [address]ENTER[facility]ig[facility] [place], [place] [address]Performed By: #### ALLMG ####[facility] LABCLIA [id number] [facility]D [facility] [place] [address] [place] AMERICALactate [Moles/Vol]0.9 mmol/L Normal0.5-2.2COhioHealth Grady Memorial Hospital on above:Order Comment: Specimen Type: ARTERIAL BLOOD SPECIMENOrdering Facility: [facility] Address: [address] [place], [place] [address]Performed By: #### ALLMG ####[facility] LABCLIA [id number] [facility] L [address] [place] [address] [place] AMERICAMagnesium [Moles/Vol]0.72 mmol/L High0.45-0.60[facility] on above:Order Comment: Specimen Type: ARTERIAL BLOOD SPECIMENOrdering Facility: [facility] Address: [address] [place], [place] [address]Gzoyfstgd By: #### ALLMG ####[facility] LABCLIA [id number] [facility] [address] [place] [address] [place] AMERICAMethemoglobin (Bld) [Mass fraction]1.6 %High0.0-1.5COhioHealth Grady Memorial Hospital on above:Order Comment: Specimen Type: ARTERIAL BLOOD SPECIMENOrdering Facility: [facility]ITALAddress: [address] [place] [id number] By: #### ALLMG ####[facility] LABCLIA [id number] [address] [address] [place] AMERICAOxygen (Bld) [Partial pressure] 299 mm TdEqte24-05HeqtnxjhmBellevue Hospital on above:Order Comment: Specimen Type: ARTERIAL BLOOD SPECIMENOrdering Facility: [facility]ITALAddress: [address] [place] [id number] By: #### ALLMG ####[facility] LABCLIA [id number] [facility] [address] [address] [place] AMERICAOxygen adjusted to patient's actual temperature (Bld) [Partial pressure]299 yeWoXhdc97-03HjydrablvBellevue Hospital on above:Order Comment: Specimen Type: ARTERIAL BLOOD SPECIMENOrdering Facility: [facility]ITALAddress: [address] [place] [id number] By: #### ALLMG ####[facility] LABCLIA [id number] [address] [address] [place] AMERICAOxyhemoglobin (BldA) [Mass fraction]97 %Hqgkaq38-68EhthhphymBellevue Hospital on above:Order Comment: Specimen Type: ARTERIAL BLOOD SPECIMENOrdering Facility: [facility]ITALAddress: [address] [place] [id number] By: #### ALLMG ####[facility] LABCLIA [id number] [address] [place] [address] [place] AMERICApH (Bld)7.38 [pH]Normal7.35-7.45[facility] on above:Order Comment: Specimen Type: ARTERIAL BLOOD SPECIMENOrdering Facility: [facility]ITALAddress: [address] [place] [address] Performed By: #### ALLMG ####[facility] LABCLIA [id number] [address] [place] [address] [place]ICApH adjusted to patient's actual temperature (Bld)7.92Ivmilr2.35-7.45[facility] Comment on above:Order Comment: Specimen Type: ARTERIAL BLOOD SPECIMENOrdering Facility: [facility]ITALAddress: [address] [place] [id number] By: #### ALLMG ####[facility] LABIA [id number] [address] [place] [address] [place] Potassium [Moles/Vol]4.2 mmol/LNormal3.5-5.0[facility] on above:Order Comment: Specimen Type: ARTERIAL BLOOD SPECIMENOrdering Facility: [facility]ITALAddress: [address] [place] [address] Performed By: #### ALLMG ####[facility] LABIA [id number] [address] [place] [address] [place]ICASodium [Moles/Vol]139 mmol/TQpjnvw868-884BpqefwdygBellevue Hospital on above: Order Comment: Specimen Type: ARTERIAL BLOOD SPECIMENOrdering Facility: [facility]ITALAddress: [address] [place] [address] Performed By: #### ALLMG ####[facility] LABCLIA [id number] [address] [place] [address] [place] AMERICABasic metabolic 2000 panelon 78-83-7432Sisqd gap [Moles/Vol]12 mmol/LNormal8-15 [facility] on above:Order Comment: Specimen Type: BLOOD SPECIMENOrdering Facility: [facility] Address:[address] [place], [place] [address]Performed By: #### 88280-5 ####[facility] LABCLIA [id number] [address] [address] [place] AMERICACalcium [Mass/Vol]9.4 mg/dLNormal8.5-10.2CBellevue Hospital Comment on above:Order Comment: Specimen Type: BLOOD SPECIMENOrdering Facility: [facility] Address:[address] [place] [address] Performed By: #### 92413-1 ####[facility] LABCLIA [id number] [address] [address] [place] Chloride [Moles/Vol]105 mmol/UTiiumv27-308NjclgomfiBellevue Hospital on above:Order Comment: Specimen Type: BLOOD SPECIMENOrdering Facility: [facility] Address:[address] [place], [place] [address]Performed By: #### 26333-5 ####[facility] LABCLIA [id number] [place] [id number] [place] AMERICACO2 [Moles/Vol]20 mmol/EQhs69-89OohrsdckkBellevue Hospital on above:Order Comment: Specimen Type: BLOOD SPECIMENOrdering Facility: [facility] Address:[address] [place], [place] [address]Performed By: #### 63839-6 ####[facility] LABCLIA [id number] [address] [address] [place] AMERICACreatinine [Mass/Vol]0.90 mg/dLNormal0.58-0.96[facility] on above:Order Comment: Specimen Type: BLOOD SPECIMENOrdering Facility: [facility] Address:[address] [place], [place] [address]Performed By: #### 95961-1 ####[facility] LABCLIA [id number] [place] [id number] [place] [facility] HOSPITALCreatinine and Glomerular filtration rate.predicted panel (S/P/Bld)80 mL/min/1.73m???Normal>=60[facility] on above:Order Comment: Specimen Type: BLOOD SPECIMENOrdering Facility: [facility] Address:[address] [place], [place] [address]Result Comment: Estimated Glomerular Filtration Rate (eGFR) is calculated using the 2020 CKD-EPI cre atinine equation. This equation utilizes serum creatinine, sex, and age as parameters. The creatinine assay has traceable calibration to isotope dilution- mass spectrometry. Refer to KDIGO guidelines for clinical interpretation. In patients with unstable renal function, e.g. those with acute kidney injury, the eGFR may not accurately reflect actual GFR.Performed By: #### 67736-2 ####[facility] LABNORTHWESTERN MEDICAL [facility] [id number] [place] [id number] [place] AMERICAGlucose [Mass/Vol]94 mg/dLNormal 74-99[facility] on above:Order Comment: Specimen Type: BLOOD SPECIMENOrdering Facility: [facility] Address:[address] [place] [address] Comment: The [place] Diabetes Association (ADA) provides guidance for cutoff [...] Standards of Medical Care in Diabetes 2016, [place] Diabetes Association. Diabetes Care. 2016.39(Suppl 1).Performed By: #### 19979-7 ####[facility] LABIA [id number] [address] [address] [place] AMERICAPotassium [Moles/Vol]4.1 mmol/L Normal3.7-5.1CBellevue HospitalComment on above:Order Comment: Specimen Type: BLOOD SPECIMENOrdering Facility: [facility] Address:[address] [place], [place] [address]Performed By: #### 35231-3 ####[facility] LABCLIA [id number] [place] [address] [place] AMERICASodium [Moles/Vol]137 mmol/LHebhfu545-239GsuwphkmpBellevue Hospital on above:Order Comment: Specimen Type: BLOOD SPECIMENOrdering Facility: [facility] Address:[address] [place], [place] [address]Performed By: #### 52353-3 ####[facility] LABIA [id number] [place] [address] [place] AMERICAUrea nitrogen [Mass/Vol]11 mg/dLNormal7-21[facility] Comment on above:Order Comment: Specimen Type: BLOOD SPECIMENOrdering Facility: [facility] Address:[address] [place] [address] Performed By: #### 95116-8 ####[facility] LABIA [id number] [place] [address] [place] OPERATIVE NOon [id number] NOHNO ID: [id number] Author: ERIK PINEDA MD Service: Neurosurgery Author Type: Physician Type: Operative Report Filed: 02/21/2025 09:26 Note Text: OPERATIVE/PROCEDURE REPORT LOG ID: [id number] SURGERY/PROCEDURE DATE: 02/20/2025 INCISION/PROCEDURE START TIME: 1:29 PM INCISION CLOSE/PROCEDURE END TIME: 4:07 PM SURGEON(S)/PROCEDURALIST(S) AND ASSISTANT UNIT FORESTER(S): Surgeons and Role: * Erik Pineda MD [...] placed by the anesthesia team and a Neives was placed. All the dependent portions of the patient were padded and double checked to minimize injury. The Holt head clamp was applied to the patient's head and affixed to the OR table. The neuronavigation system using Thinkspeed was then registered and accuracy was confirmed using external anatomical landmarks and previous imaging in the PACS system. IV antibiotics, steroids, and Keppra were then administered. The patient was then prepped and draped in standard fashion for cranial surgery. A timeout was then performed in accordance with [facility] operative protocols. A right frontotemporal craniotomy [...] was then marked with a bone pencil. [place] holes were then placed in strategic places. Bony fragments were freed. The underlying dura was then stripped using a #3 [place]. Using a high speed air drill with [...] condition. 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 Anthony'S HospitalPathology biopsy report Alexis (Tiss)on [id number] DISCLAIMERNormalCBellevue HospitalComment on above:Order Comment: Specimen Type: TISSUE SPECIMENOrdering Facility: [facility] Address: [address] [place], [place] [address]Msedep Comment: Laboratory Developed Test (LDT) Disclaimer: Performance characteristics of immunohistochemical, immunofluorescent, and chromogenic in-situ hybridization tests have been determined by the performing laboratory within [facility]'s [facility] Pathology and Laboratory Medicine Department ([facility], [facility], [facility], [facility], [facility], [facility], or [facility]) in a manner consistent with CLIA requirements. One or more of these tests may not have been cleared or approved by the FDA. [facility] is regulated under CLIA as qualified to perform high- complexity testing. These tests are used for clinical purposes. These should not be regarded asinvestigational or for research. Positive and negative controls stain appropriately.Performed By: #### 30230-6 ####[facility] LABNORTHWESTERN MEDICAL CENTER [id number] [address] [address] [facility] HOSPITALCASE REPORTNormCrystal Clinic [facility] on above:Order Comment: Specimen Type: TISSUE SPECIMENOrdering Facility: [facility] Address: [address] [place], [place] [address]Result Comment: Surgical Pathology Report Case: [id number] Authorizing Provider: Erik Pineda MD Collected: 02/20/2025 03:13 PM Ordering Location: Admitting Received: 02/20/2025 04:45 PM Pathologist: Brody Olvera MD Specimen: Brain, Resection, right middle sphenoid wing tumorPerformed By: #### 13509-8 ####[facility] [id number] [address] [address] [place] STATES OF [facility] HOSPITALCLINICAL HISTORYNormal [facility] on above:Order Comment: Specimen Type: TISSUE SPECIMENOrdering Facility: [facility] Address: [address] [place], [place] [address]Result Comment: Pre-op diagnosis: Intracranial meningioma (HCC) [D32.0] Preop testing [Z01.818]Performed By: #### 65466-5 ####[facility] LABNORTHWESTERN MEDICAL CENTER [id number] [address] [address] [facility] OF AMERICADIAGNOSIS COMMENTImmunohistochemical staining of the tumor with antibodies to SSTR2a and MS was performed on block A1. The tumor shows positive staining with both antibodies, consistent with the diagnosis. A Ki-67 index of approximately 2-3% is focally noted.NormalBellevue Hospital on above:Order Comment: Specimen Type: TISSUE SPECIMENOrdering Facility: [facility] Address: [address] [place], [place] [address]Performed By: #### 27999-0 ####[facility] LABCLIA [id number] [address] [address] [facility] OF [facility] HOSPITALFINAL DIAGNOSISNormal [facility] on above:Order Comment: Specimen Type: TISSUE SPECIMENOrdering Facility: [facility] Address: [address] [place], [place] [address]Result Comment: A. Right middle sphenoid wing region, excision: - Morphologically consistent with meningothelial meningioma, WHO grade 1 at 1536 EDT Performed By: #### 68429-4 ####[facility] LABCLIA [id number] [address] [address] [facility] FINAL [facility] on above:Order Comment: Specimen Type: TISSUE SPECIMENOrdering Facility: [facility] Address: [address] [place], [place] [address]Result Comment: Diagnostic interpretation performed at: [facility], [address] [place] [address] CLIA# [id number] Market Consultant: Frederick Bruceformed By: #### 02850-0 ####[facility] LABCLIA [id number] [address] [place] [address] [place] OF [facility]ITALGROSS DESCRIPTIONMercy Memorial Hospital Comment on above:Order Comment: Specimen Type: TISSUE SPECIMENOrdering Facility: [facility] Address: [address] [place], [place] [address]Result Comment: A. Brain, Resection Received in formalin, labeled as brain resection, right middle sphenoid wing tumor is a single bryant-brown irregular rubbery tissue measuring 2.1 x 1.3 x 0.5 cm. Sectioning reveals bryant-davidson homogenous cut surfaces. Totally submitted in cassettes A1-A2. February 21, 2025 10:13 AM Gross examination performed at [facility] [place], [place] [address]Performed By: #### 62972-7 ####[facility] LABCLIA [id number] [facility]ENTERDESK [id number] [place] [address] Kathy [id number] (NSCAMN) KOURTNEY NOVAK ([id number]) 1975 F Date Time Provider Department 02/17/[address] [facility] During your visit today, we recorded the following information about you: Shakila Phillips RN 02/17/2025 3:51 PM Signed Called the patient for pre-op instructions. Questions pertaining to hospital stay and after hospital discharge instructions were addressed. She was made aware to touch base after she gets discharged home for review of hospital discharge instructions and confirming postop follow up appts. Shakila Phillips RN, Roll Forger Allergies As of Date: 02/17/2025 (No Known Allergies) Date Reviewed: 02/14/2025 Reviewed by: Iwona Lainez RT(R) - Fully Assessed Reason for Visit: PreOp Call [[id number]] Prescriptions as of 02/17/2025 - ondansetron orally [...] Inflammatory arthritis [M19.90] 02/14/2025 Encounter Status:Closed by SHAKILA PHILLIPS on 02/17/25[facility] HospitalParis [id number] (PALORA) KOURTNEY NOVAK ([id number]) 1975 F Date Time Provider Department 02/15/25 MEHUL MARTIN During your visit today, we recorded the following information about you: Mehul Martin APRN.CNP 02/15/2025 8:15 AM Signed Please call patient. Lab did not draw [place], A1C, or BMP. Please have her go to closest [facility] lab to have them drawn. She can go to [facility] cancer center in [place] if that is best for her thank you. Thank you, Mehul Martin APRN.Barbara Sinclair LPN 02/15/2025 8:22 AM Signed I called and spoke with patient. Relayed below message; denies questions at this time. Will go to [facility]. Barbara Rosenthal LPN February 15, 2025 8:22 AM Mehul Martin APRN.CNP 02/17/2025 4:16 PM Signed Lab still did not draw BMP ordered by Dr. Pineda. Labs client services unable to add. Will place DOS BMP Allergies As of Date: 02/15/2025 (No Known Allergies) Date Reviewed: 02/14/2025 Reviewed by: Iwona Lainez, RT(R) - Fully Assessed Reason for [...] 02/14/2025 Encounter Status:Closed by BARBARA ROSENTHAL on 02/15/25NoMagruder Memorial HospitalCONFIRM BLOOD TYPEon 85-84-7802TJZAXuqjvuBtgzndywvMagruder Memorial Hospital Comment on above:Order Comment: Specimen Type: BLOOD SPECIMENOrdering Facility: [facility] Address:[address] [place] [address] Performed By: #### CONABO ####CC [facility] BLOOD BANKCLIA [id number] [place] [address] [place] OF AMERICARh Nom (Bld)Negative NormalSt. Anthony'S HospitalComascension providence hospital on above:Order Comment: Specimen Type: BLOOD SPECIMENOrdering Facility: [facility] Address:[address] [place], [place] [address]Performed By: #### CONABO ####CC [facility] BLOOD BANKCLIA [id number] [address] OF IEXJPVHBzJ9j (Bld)on 74-97-7559Lcdpepg glucose Estimated from glycated hemoglobin (Bld) [Mass/Vol]108 mg/dLNoMagruder Memorial HospitalComascension providence hospital on above:Order Comment: Specimen Type: BLOOD SPECIMENOrdering Facility: [facility] Address:[address] [place], [place] [address]Result Comment: eAG: (Estimated average glucose) is a calculated value from HgbA1c and is welding equipment sales representative of the average blood glucose level in the last 2-3 month period. Performed By: #### 11653-9 ####[facility] LABCLIA [id number] [place] [address] [facility] HbA1c (Bld) [Mass fraction]5.4 %Normal4.3-5.6COhioHealth Grady Memorial Hospital on above:Order Comment: Specimen Type: BLOOD SPECIMENOrdering Facility: [facility] Address:[address] [place], [place] [address]Result Comment: [place] Diabetes Association guidelines indicate that patients with HgbA1c in the range 5.7-6.4% are at increased risk for development of diabetes, and intervention by lifestyle modification may be beneficial. HgbA1c greater or equal to 6.5% is considered diagnostic of diabetes.Performed By: #### 28912-8 ####[facility] LABCLIA [id number] [place] [id number] [facility] SerPl-cCncon 03-79-0254AES [Catalytic activity/Vol]27 U/LNormal7-38[facility] on above:Order Comment: Specimen Type: BLOOD SPECIMENOrdering Facility: [facility] Address:[address] [place], [place] [address]Performed By: #### 1742-6, 1920-04, 1988-01 ####[facility] LABIA [id number] [place] [id number] [place] [facility]ENTERAST SerPl-cCnc on 47-82-8161YGU [Catalytic activity/Vol]20 U/GBijqkm02-31UntawfxeiBellevue Hospital on above:Order Comment: Specimen Type: BLOOD SPECIMENOrdering Facility: [facility] Address:[address] [place], [place] [address]Performed By: #### 1742-6, 1920-04, 1988-01 ####[facility] LABIA [id number] [place] [id number] [facility]OSPITALCB panel Auto (Bld)on 64-44-4903Hmunbpeswce distribution width (RBC) [Ratio]13.4 %Iajhxt49.5-15.0[facility] on above:Order Comment: Specimen Type: BLOOD SPECIMENOrdering Facility: [facility] Address:[address] [place], [place] [address]Performed By: #### 17381- 2, 4537-7 ####[facility] LABCLIA [id number] VICKEY RIOS ENUEDK [address] ALVARE[address] STREETHematocrit (Bld) [Volume fraction]39.2 %Fhuxrd50.0-46.0[facility] on above:Order Comment: Specimen Type: BLOOD SPECIMENOrdering Facility: [facility] Address:[address] [place], [place] [address]Performed By: #### 29925- 2, 4537-7 ####[facility] LABIA [id number] [facility]ABETHS MEDICAL CENTERMiguel EN[address] MCNE[address] STREETHemoglobin (Bld) [Mass/Vol]12.6 g/rFXoujoq24.5-15.5COhioHealth Grady Memorial Hospital on above: Order Comment: Specimen Type: BLOOD SPECIMENOrdering Facility: [facility] Address:[address] [place], [place] [address]Performed By: #### 22384- 2, 4537-7 ####[facility] LABIA [id number] [facility] CENTERERICK ENCARRAWAY METHODIST MEDICAL CENTERK [address] (RBC) [Entitic mass] 29.9 mjZacuom23.0-34.0[facility] on above:Order Comment: Specimen Type: BLOOD SPECIMENOrdering Facility: [facility] Address:[address] [place], [place] [address]Performed By: #### 50396-7, 4537-7 ####[facility] LABIA [id number] [address]ETHS MEDICAL CENTERMiguel [facility] ERK [address]ETMCHC (RBC) [Mass/Vol]32.1 g/dL Bscrlr73.5-36.0[facility] on above:Order Comment: Specimen Type: BLOOD SPECIMENOrdering Facility: [facility] Address:[address] [place], [place] [address]Performed By: #### 68006-9, 4537-03 ####[facility] LABIA [id number] [place] [address] [place] AMERICAMCV (RBC) [Entitic vol]93.1 fL Ppqqup20.0-100.0[facility] on above:Order Comment: Specimen Type: BLOOD SPECIMENOrdering Facility: [facility] Address:[address] [place], [place] [address]Performed By: #### 78427-1, 4537-03 ####[facility] LABIA [id number] [address]ucleated RBC (Bld) [#/Vol] 10*3/uLNormal<0.01[facility] on above:Order Comment: Specimen Type: BLOOD SPECIMENOrdering Facility: [facility] Address:[address] [place], [place] [address]Performed By: #### 54607-4, 4537-03 ####[facility] LABIA [id number] [place] [address] [place] AMERICAPlatelet mean volume (Bld) [Entitic vol]10.9 fLNormal9.0-12.7COhioHealth Grady Memorial Hospital on above: Order Comment: Specimen Type: BLOOD SPECIMENOrdering Facility: [facility] Address:[address] [place], [place] [address]Performed By: #### 84170- 2, 4537-03 ####[facility] LABIA [id number] [place] [address] [place] AMERICAPlatelets (Bld) [#/Vol] 329 10*3/pWVtgogk343-603VroehdjqiBellevue Hospital on above:Order Comment: Specimen Type: BLOOD SPECIMENOrdering Facility: [facility] Address:[address] [place], [place] [address]Performed By: #### 58802- 2, 4537-7 ####[facility] LABCLIA [id number] [facility]ON RAPIDSUED[address] (Bld) [#/Vol]4.21 10*6/uLNormal3.90-5.20[facility] on above:Order Comment: Specimen Type: BLOOD SPECIMENOrdering Facility: [facility] Address:[address] [place], [place] [address]Performed By: #### 21670-3, 4537-7 ####[facility] LABIA [id number] [address]W (Bld) [#/Vol]7.27 10*3/uL Normal3.70-11.00[facility] on above:Order Comment: Specimen Type: BLOOD SPECIMENOrdering Facility: [facility] Address:[address] [place], [place] [address]Performed By: #### 90633-4, 4537-7 ####MERCY HOSPITALIA [id number] [address] SerPl-[facility] 05-71-2307SNZ [Mass/Vol]0.6 mg/dLNormal<0.9COhioHealth Grady Memorial Hospital on above:Order Comment: Specimen Type: BLOOD SPECIMENOrdering Facility: [facility] Address:[address] [place], [place] [address]Performed By: #### 1742- 6, 1919-8, 1988-01 ####MERCY HOSPITALIA [id number] [place] [address] [facility] HOSPITALECG01on 02-14-2025 MSU88Yaiqgskjucp Rate : 77 BPM Atrial Rate : 77 BPM P-R Interval : 138 ms QRS Duration : 82 ms Q-T Interval : 386 ms QTC Calculation(Bazett) : 436 ms Calculated P [place] : 36 degrees Calculated R [place] : 47 degrees Calculated T [place] : 47 degrees NORMAL SINUS RHYTHM NORMAL ECG Confirmed by DI YORK M.D. ([id number]) on 02/14/2025 1:23:03 PM NAME : KOURTNEY NOVAK PID : [id number] : 1975 Gender : Female Race : [...] By : ERIK PINEDA Acquired by : heather,NormalSt. Anthony'S HospitalESR Westergren method (Bld) [Velocity]on 05-44-1578HBL (Bld) [Velocity]2 mm/hNormal0-20St. Anthony'S HospitalComment on above:Order Comment: Specimen Type: BLOOD SPECIMENOrdering Facility: [facility] Address:[address] [place], [place] [address]Performed By: #### 29645-8, 4537-7 ####[facility] LABCLIA [id number] [address] OF [facility] HOSPITALHISTORY PHYSICALon 01-92-2334XHSLIUH PHYSICALHNO ID: [id number] Author: MEHUL MARTIN APRN.ENGINE LATHE SET UP OPERATOR TOOL Service: ? Author Type: Nurse Practitioner Type: H&P Filed: 02/17/2025 16:23 Note Text: HISTORY AND PHYSICAL EXAMINATION SERVICE DATE: 02/14/2025 SERVICE TIME: 7:58 AM PRIMARY CARE PHYSICIAN: Jesus Gonzalez MD REASON FOR VISIT: Kourtney Novak [...] [facility] rheumatology COPD (chronic obstructive pulmonary disease) ([facility]) Assessment: Stable with nebulizer treatments Denies any SOB Denies any Home oxygen use Lungs clear on exam SpO2 in office today 96% Monitored by PCP MAREK (obstructive sleep apnea) Assessment: Does not use CPAP Mixed hyperlipidemia Assessment: Compliant with Statin GERD (gastroesophageal reflux disease) Assessment: Controlled with dexilant Hypothyroidism Assessment: Controlled with levothyroxine Diabetes mellitus ([facility]) Assessment: Complaint with oral medications -A1C ordered today Instructions provided to patient on how long to hold diabetic medications prior to procedure Anxiety Assessment: Controlled with Lamictal Class 3 severe obesity due to excess calories with serious comorbidity and body mass index (BMI) of 40.0 to 44.9 in adult ([facility]) Assessment: Body mass index is 40.98 kg/m?. [...] of breath with the above physical activity. 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 No acute abnormalities. Client Relations Specialist: GUANACO Transcribe Date/Time: Feb 14 2025 10:01A Dictated by : SEAN BLOCK MD This examination was interpreted and the report reviewed and electronically signed by: SEAN BLOCK MD on Feb 14 2025 10:22AM [facility] DIVISION OF RADIOLOGY* * *Final Report* * * DATE OF EXAM: Feb 14 2025 10:37AM [facility] - MRI BRAIN WO/W IVCON / [...] tissue mass extending into the of the milling general superintendent or parapharyngeal spaces. The soft tissue planes of the, retropharyngeal, and prevertebral spaces are maintained. The visualized parotid glands are normal in appearance. Nasopharynx/Oropharynx: The nasopharynx and oropharynx are normal in appearance. DIVISION OF RADIOLOGYProvider, [facility] - 02/14/2025 * * *Final Report* * * DATE OF EXAM: Feb 14 2025 10:37AM [facility] - MRI BRAIN WO/W IVCON / [...] tissue mass extending into the of the milling general superintendent or parapharyngeal spaces. The soft tissue planes [...] exam in November 2015. No acute abnormalities. Client Relations Specialist: PSCB Transcribe Date/Time: Feb 14 2025 10:01A Dictated by : SEAN BLOCK MD This examination was interpreted and the report reviewed and electronically signed by: SEAN BLOCK MD on Feb 14 2025 10:22AM [facility] observation (narrative)[facility] Brain WO and W contrast IVOrdered By: [facility] Provider on 40-28-5594Tuliobwxd ClinicMRI BRAIN WO/W IVCONon 38-45-7553ZIF BRAIN WO/W IVCON* * *Final Report* * * DATE OF EXAM: Feb 14 2025 10:37AM [facility] - MRI BRAIN WO/W IVCON / [...] tissue mass extending into the of the milling general superintendent or parapharyngeal spaces. The soft tissue planes [...] exam in November 2015. No acute abnormalities. Client Relations Specialist: PSCIliana Transcribe Date/Time: Feb 14 2025 10:01A Dictated by : SEAN BLOCK MD This examination was interpreted and the report reviewed and electronically signed by: SEAN BLOCK MD on Feb 14 2025 10:22AM EST [id number]. Anthony'S HospitalSTAPHYLOCOCCUS AUREUS AND MRSA SCREEN, PCR, NASALon 02-14-2025S. aureus and MRSA panel RADHA+probe (Nose)Not detectedNormalNot DetectedCleveland Clinic Lutheran Hospitalment on above:Order Comment: Specimen Type: SWABOrdering Facility: [facility] Address: [address] [place], [place] [address]Performed By: #### SAPCR ####[facility] LABCLIA [id number] [place] [address] [place] OF AMERICATYPE AND SCREEN,30 DAYon 10-97-1892MUWFCvzfehCagijambo Clinic ClevelandComment on above:Order Comment: Specimen Type: BLOOD SPECIMENOrdering Facility: [facility] Address:[address] [place], [place] [address]Performed By: #### TSCR30 ####CC [facility] BLOOD BANKCLIA [id number] [place] [address] [place] AMERICARh Nom (Bld)NegativeNormalCBellevue Hospital Comment on above:Order Comment: Specimen Type: BLOOD SPECIMENOrdering Facility: [facility] Address:[address] [place] [address] Performed By: #### TSCR30 ####CC [facility] BLOOD BANKCLIA [id number] [place] [address] [place] AMERICAUS renal BIon 06-55-3293LU renal [facility] Main [address] [address] Ultrasound Report Signed Patient: Kourtney Novak MR#: [id number] : 1975 Acct:[id number] Age/Sex: 49 / F ADM Date: 02/10/25 Loc: Room: Type: [facility] Attending Dr: Jesus Gonzalez MD Ordering Provider: Jesus Gonzalez MD Date of Service: 02/10/25 US/US renal BI: N28.9 Copies to: Jesus Gonzalez MD Bilateral Renal Ultrasound HISTORY: Abnormal [...] Gray M.D. 02/10/2025 4:44 PM Dictation Location: [place] [address] Tech: Vani Veliadez Transcribed By: [facility] 02/10/25 1644 Dictated By: George Gray DO 02/10/25 164 Signed By: 02/10/25 1644[facility] Physician GroupCNOV 24-69-2672ZCVECedayg Visit (ISSA) KOURTNEY NOVAK ([id number]) 1975 F Date Time Provider Department 12/28/24 9:20 AM ZULEMA WOOD During your visit today, we recorded the following information about you: Pulse Blood pressure Weight 109/minute 104/65 110.2 kg Zulema Wood MD 12/28/2024 10:08 AM Signed Kourtney [...] is good air moveme (more content not included)...Normal [facility] ClevelandX-ray reportOrdered By: Lincoln Hoffmann on 25-51-0621Pwvdm reportCHERRINGTON HOSPITAL [facility] [address] [place] [address] XRay Report Signed Patient: Kourtney Novak MR#: [id number] : 1975 Acct:[id number] Age/Sex: 49 / F ADM Date: 5 Loc: [facility] Room: Type: [facility] Attending Dr: Elyssa Gomes MD Copies [...] Progression areas of remodeling of the lunate withprogressive areas of sclerosis and subchondral cystic changes 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 Widening of the scapholunate interval. Mild [...] Lincoln Hoffmann M.D.12/27/2024 4:47 PM Dictation Location: [place] [address] Transcribed By: [facility] 12/27/241646 Dictated By: Lincoln Hoffmann MD 12/27/241642 Signed By: 12/27/241646 [facility] Work Phone: XR wrist RT min 3V*on 84-46-0041RI wrist RT min 3V* [facility] [address] [place] [address] XRay Report Signed Patient: Kourtney Novak MR#: [id number] : 1975 Acct:[id number] Age/Sex: 49 / F ADM Date: 12/27/24 Loc: [facility] Room: Type: [facility] Attending Dr: Elyssa Gomes MD Copies [...] Lincoln Hoffmann M.D.12/27/2024 4:47 PM Dictation Location: [place] [address] Transcribed By: [facility] 12/27/241646 Dictated By: Lincoln Hoffmann MD 12/27/241642 Signed By: 12/27/24 1647[facility] Physician GroupBasophils Auto (Bld) [#/Vol] Ordered By: Jesus Gonzalez on 18-70-3782Opajjuwnx (Bld) [#/Vol]Automated basophil count0.0-0.2FMarietta Osteopathic ClinicBasophils/100 WBC Auto (Bld)Ordered By: Jesus Gonzalez on 10-55-9800Gvmsvmbcl/100 WBC (Bld)Automated basophil %. [facility] CenterComplete Blood Count Auto Diffon 12-13-2024 Basophils (Bld) [#/Vol]0.1 10*3/uLNormal0.0-0.2[facility] Comment on above:Result Comment: PERFORMED BY: [place] [address] PATHOLOGIST FASTENER SEWING MACHINE OPERATOR PAKO RAMACHANDRAN M.D.Performed By: #### LIPID, [id number], TSH3, T3F, FE PRO, [id number], T4T, MG, A1C WTH eA, CBC, PHOS #### [address] #### INSULIN #### [facility] ,Basophils/100 WBC (Bld)1.0 %Normal.[facility] Physician GroupComment on above:Performed By: #### LIPID, [id number], TSH3, T3F, FE PRO, [id number], T4T, MG, A1C WTH eA, CBC, PHOS #### [place] [address] [place] #### INSULIN #### [facility] ,Eosinophils (Bld) [#/Vol]0.2 10*3/uLNormal0.0-0.45The [facility] Comment on above:Performed By: #### LIPID, [id number], TSH3, T3F, FE PRO, [id number], T4T, MG, A1C WTH eA, CBC, PHOS #### [place] [address] [place] #### INSULIN #### [facility] ,Eosinophils/100 WBC (Bld)2.7 %Normal.[facility] Physician GroupComment on above:Performed By: #### LIPID, [id number], TSH3, T3F, FE PRO, [id number], T4T, MG, A1C WTH eA, CBC, PHOS #### [place] [address] [place] #### INSULIN #### [facility] ,Erythrocyte distribution width (RBC) [Ratio]13.3 %Orvbhn00.9-15.3The [facility] Physician GroupComment on above:Performed By: #### LIPID, [id number], TSH3, T3F, FE PRO, [id number], T4T, MG, A1C WTH eA, CBC, PHOS #### [place] [address] [place] #### INSULIN #### [facility] ,Hematocrit (Bld) [Volume fraction]38.5 %Xrmvcc40.0-46.4The [facility] Physician GroupComment on above:Performed By: #### LIPID, [id number], TSH3, T3F, FE PRO, [id number], T4T, MG, A1C WTH eA, CBC, PHOS #### [address] #### INSULIN #### [facility] ,Hemoglobin (Bld) [Mass/Vol]12.7 g/aOIsqbeu49.8-15.4The [facility] Physician GroupComment on above:Performed By: #### LIPID, [id number], TSH3, T3F, FE PRO, [id number], T4T, MG, A1C WTH eA, CBC, PHOS #### [place] [address] [place] #### INSULIN #### [facility] ,Lymphocytes (Bld) [#/Vol]2.6 10*3/uLNormal1.00-4.8The [facility] Comment on above:Performed By: #### LIPID, [id number], TSH3, T3F, FE PRO, [id number], T4T, MG, A1C WTH eA, CBC, PHOS #### [place] [address] [place] #### INSULIN #### [facility] ,Lymphocytes/100 WBC (Bld)30.8 %Normal.[facility] Physician GroupComment on above:Performed By: #### LIPID, [id number], TSH3, T3F, FE PRO, [id number], T4T, MG, A1C WTH eA, CBC, PHOS #### [address] #### INSULIN #### [facility] ,MCH (RBC) [Entitic mass]30.2 ozKwonrd55.7-34.3The [facility] Comment on above:Performed By: #### LIPID, [id number], TSH3, T3F, FE PRO, [id number], T4T, MG, A1C WTH eA, CBC, PHOS #### [address] #### INSULIN #### [facility] ,MCV (RBC) [Entitic vol]91.4 oXIhvqbz41-058Bfh [facility] Physician GroupComment on above:Performed By: #### LIPID, [id number], TSH3, T3F, FE PRO, [id number], T4T, MG, A1C WTH eA, CBC, PHOS #### [address] #### INSULIN #### [facility] ,Mean Corpuscular HGB Conc33.1 g/xACvrosl02.0-35.0The [facility] Comment on above:Performed By: #### LIPID, [id number], TSH3, T3F, FE PRO, [id number], T4T, MG, A1C WTH eA, CBC, PHOS #### [address] #### INSULIN #### [facility] ,Monocytes (Bld) [#/Vol]0.9 10*3/uLHigh0.0-0.8The [facility] Comment on above:Performed By: #### LIPID, [id number], TSH3, T3F, FE PRO, [id number], T4T, MG, A1C WTH eA, CBC, PHOS #### [place] [address] [place] #### INSULIN #### [facility] ,Monocytes/100 WBC (Bld)11.1 %Normal.The [facility] Physician GroupComment on above:Performed By: #### LIPID, [id number], TSH3, T3F, FE PRO, [id number], T4T, MG, A1C WTH eA, CBC, PHOS #### [facility] [address] [place] [address] [place] #### INSULIN #### [facility] ,Neutrophils (Bld) [#/Vol]4.6 10*3/uLNormal1.8-7.7The [facility] Comment on above:Performed By: #### LIPID, [id number], TSH3, T3F, FE PRO, [id number], T4T, MG, A1C WTH eA, CBC, PHOS #### [place] [address] [place] #### INSULIN #### [facility] ,Neutrophils/100 WBC (Bld)54.4 %Normal.The [facility] Physician GroupComment on above:Performed By: #### LIPID, [id number], TSH3, T3F, FE PRO, [id number], T4T, MG, A1C WTH eA, CBC, PHOS #### [place] [address] [place] #### INSULIN #### [facility] ,NRBC%0.1 /100{WBC}Normal0-0.5The [facility] Physician GroupComment on above: Performed By: #### LIPID, [id number], TSH3, T3F, FE PRO, [id number], T4T, MG, A1C WTH eA, CBC, PHOS #### [place] [address] [place] #### INSULIN #### [facility] ,Platelet mean volume (Bld) [Entitic vol]8.6 fLNormal6.3-10.7The [facility] Physician GroupComment on above:Performed By: #### LIPID, [id number], TSH3, T3F, FE PRO, [id number], T4T, MG, A1C WTH eA, CBC, PHOS #### [place] [address] [place] #### INSULIN #### [facility] ,Platelets (Bld) [#/Vol]372 10*3/fYKzyjzk832-248Rgb [facility] Comment on above:Performed By: #### LIPID, [id number], TSH3, T3F, FE PRO, [id number], T4T, MG, A1C WTH eA, CBC, PHOS #### [address] #### INSULIN #### [facility] ,RBC (Bld) [#/Vol]4.22 10*6/uLNormal3.60-5.00[facility] Comment on above:Performed By: #### LIPID, [id number], TSH3, T3F, FE PRO, [id number], T4T, MG, A1C WTH eA, CBC, PHOS #### [address] #### INSULIN #### [facility] ,WBC (Bld) [#/Vol]8.5 10*3/uLNormal3.8-11.6[facility] Physician GroupComment on above:Performed By: #### LIPID, [id number], TSH3, T3F, FE PRO, [id number], T4T, MG, A1C WTH eA, CBC, PHOS #### [place] [address] [place] #### INSULIN #### [facility] ,Eosinophils Auto (Bld) [#/Vol]Ordered By: Jesus Gonzalez on 27-46-5534Dnnxdccaxob (Bld) [#/Vol]Automated eosinophil count0.0-0.45[facility] Eosinophils/100 WBC Auto (Bld)Ordered By: Jesus Gonzalez on 12-13-2024 Eosinophils/100 WBC (Bld)Automated eosinophil %.[facility] CenterErythrocyte distribution width Auto (RBC) [Ratio]Ordered By: Jesus Gonzalez on 20-34-0768Spqtvyimrto distribution width (RBC) [Ratio]Erythrocyte distribution width [Ratio] by Automated count11.9-15.3FMarietta Osteopathic ClinicFerritinon 53-64-0064Coajxsrw [Mass/Vol]56.2 ng/qCBfzdlg93.0-306.8The [facility] Physician GroupComment on above:Result Comment: PERFORMED BY: [place] [address] PATHOLOGIST FASTENER SEWING MACHINE OPERATOR PAKO RAMACHANDRAN M.D.Performed By: #### LIPID, [id number], TSH3, T3F, FE PRO, [id number], T4T, MG, A1C WTH eA, CBC, PHOS #### [facility] [address] [place] [address] #### INSULIN #### [facility] ,Ferritin [Mass/volume] in Serum or PlasmaOrdered By: Jesus Gonzalez on 12-13-2024 Ferritin [Mass/Vol]Ferritin [Mass/volume] in Serum or Qprnue46.0-306.8[facility] CenterHematocrit Auto (Bld) [Volume fraction]Ordered By: Jesus Gonzalez on 56-57-9312Wyyzyjkhnm (Bld) [Volume fraction]Hematocrit [Volume Fraction] of Blood by Automated count34.0-46.4FMarietta Osteopathic Clinic Hemoglobin [Mass/volume] in BloodOrdered By: Jesus Gonzalez on 86-00-9178Kavoxzltom (Bld) [Mass/Vol]Hemoglobin [Mass/volume] in Blood11.8-15.4FMarietta Osteopathic ClinicIronon 86-14-9209Kgrb [Mass/Vol]37 ug/bESsi87-080Lwk [facility] Physician GroupComment on above:Performed By: #### LIPID, [id number], TSH3, T3F, FE PRO, YFIN13NPB, T4T, MG, A1C WTH eA, CBC, PHOS #### [facility] [address] #### INSULIN #### [facility] ,Iron [Mass/volume] in Serum or PlasmaOrdered By: Jesus Gonzalez on 35-07-2930Axaj [Mass/Vol]Iron [Mass/volume] in Serum or ColkguLrt37-319HwzjpkpbmAdena Pike Medical CenterLeukocytes [#/volume] corrected for nucleated erythrocytes in Blood by Automated counOrdered By: Jesus Gonzalez on 27-41-5371LBO corrected for nucl RBC Auto (Bld) [#/Vol]Leukocytes [#/volume] corrected for nucleated erythrocytes in Blood by Automated coun3.8-11.6FMarietta Osteopathic Clinic Lymphocytes Auto (Bld) [#/Vol]Ordered By: Jesus Gonzalez on 79-28-8496Rrdzjlsgcmb (Bld) [#/Vol]Lymphocytes [#/volume] in Blood by Automated count1.00-4.8[facility] CenterLymphocytes/100 WBC Auto (Bld)Ordered By: Jesus Gonzalez on 00-51-7869Omfvzzoqbnp/100 WBC (Bld)Lymphocytes/100 leukocytes in Blood by Automated count.[facility] Auto (RBC) [Entitic mass] Ordered By: Jesus Gonzalez on 81-21-7978GWP (RBC) [Entitic mass]MCH [Entitic mass] by Automated count24.7-34.3FMarietta Osteopathic ClinicMCHC Auto (RBC) [Mass/Vol]Ordered By: Jesus Gonzalez on 31-54-7253QPGW (RBC) [Mass/Vol]MCHC [Mass/volume] by Automated count32.0-35.0[facility] CenterMCV Auto (RBC) [Entitic vol]Ordered By: Jesus Gonzalez on 05-72-2740FUY (RBC) [Entitic vol]MCV [Entitic volume] by Automated zdyif99-436ZudmkigpyAdena Pike Medical CenterMonocytes Auto (Bld) [#/Vol]Ordered By: Jesus Gonzalez on 94-21-6547Raxnwitkn (Bld) [#/Vol]Automated blood monocyte countHigh0.0-0.8[facility] CenterMonocytes/100 WBC Auto (Bld)Ordered By: Jesus Gonzalez on 12-13-2024 Monocytes/100 WBC (Bld)Automated monocyte %.[facility] Neutrophils Auto (Bld) [#/Vol]Ordered By: Jesus Gonzalez on 09-54-1027Hhlyrxaagqj (Bld) [#/Vol]Neutrophils [#/volume] in Blood by Automated count1.8-7.7FMarietta Osteopathic ClinicNeutrophils/100 WBC Auto (Bld)Ordered By: Jesus Gonzalez on 73-44-6784Znolomfpvgb/100 WBC (Bld)Automated neutrophil %.[facility] CenterNucleated erythrocytes [Presence] in Blood by Automated count Ordered By: Jesus Gonzalez on 37-45-5844Qzmqevmvm RBC Auto Ql (Bld)Nucleated erythrocytes [Presence] in Blood by Automated count0-0.5FMarietta Osteopathic ClinicPlatelet mean volume Auto (Bld) [Entitic vol]Ordered By: Jesus Gonzalez on 67-77-9959Jwfhysgc mean volume (Bld) [Entitic vol]Platelet mean volume [Entitic volume] in Blood by Automated count6.3-10.7FMarietta Osteopathic ClinicPlatelets Auto (Bld) [#/Vol]Ordered By: Jesus Gonzalez on 41-54-0760Rnikxsyww (Bld) [#/Vol]Platelets [#/volume] in Blood by Automated utfjw124-040JvqfshzmnAdena Pike Medical CenterRBC Auto (Bld) [#/Vol]Ordered By: Jesus Gonzalez on 39-98-6080WYV (Bld) [#/Vol]Erythrocytes [#/volume] in Blood by Automated count 3.60-5.00[facility] CenterWBC Auto (Bld) [#/Vol]Ordered By: Jesus Gonzalez on 60-28-4670BST (Bld) [#/Vol]Leukocytes [#/volume] in Blood by Automated count3.8-11.6FMarietta Osteopathic ClinicCNPNon 97-51-8995AWFY Telephone [facility] KOURTNEY NOVAK ([id number]) 1975 F Date Time Provider Department 12/05/[address] [facility] During your visit today, we recorded the following information about you: Shakila Phillips RN 12/05/2024 10:07 AM Signed Left a detailed voice message for the patient requesting a call back to discuss her plan of care AND scheduling surgery. Contact info provided. Shakila Phillips RN 12/05/2024 10:32 AM Signed Patient [...] made aware to reach out for questions/concerns/updates. Shakila Phillips RN, Roll Forger Allergies As of Date: 12/05/2024 (No Known Allergies) Date Reviewed: 05/30/2024 Reviewed by: Saritha Keith MA - Fully Assessed Reason for Visit: Care Coordination [2040] Cmt: Karthik Follow up - Surgery Planning [...] tension-type headache, intractable [G44*06/01/2023 Encounter Status:Closed by SHAKILA PHILLIPS on 12/05/24NoMagruder Memorial HospitalX-ray reportOrdered By: George Gray on 88-47-5613Mkfyj reportCHERRINGTON [facility] [address] [place] [address] XRay Report Signed Patient: Kourtney Novak MR#: [id number] : 1975 Acct:[id number] Age/Sex: 48 / F ADM Date: 5 [place]: [facility] [place]: Type: [facility] CLI Attending Dr: Alessia Broderick MD Copies to: Alessia Broderick MD~ Ordering Provider: Alessia Broderick MD Date of Service: 11/03/24 XR/XR [...] 4:19 PM Dictation Location: RADIO-PC-23 Transcribed By: [facility] 11/03/24 161 Dictated By: George Gray DO 11/03/241617 Signed By: 11/03/24 1619 [facility] CenterXR shoulder LT min 2V*on 97-90-9365SG shoulder LT min 2V*[facility] [address] [place] [address] XRay Report Signed Patient: Kourtney Novak MR#: [id number] : 1975 Acct:[id number] Age/Sex: 48 / F ADM Date: 11/03/24 [place]: [facility] [place]: Type: [facility] CLI Attending Dr: Alessia Broderick MD Copies to: Alessia Broderick MD Ordering Provider: Alessia Broderick MD Date of Service: 11/03/24 XR/XR [...] Dictation Location: RADIO-PC-23 Transcribed By: GRACIE 11/03/24 1619 Dictated By: George Gray DO 11/03/24 1618 Signed By: 11/03/24 1619[facility] Physician GroupCNPNon 65-49-2275UXUJEawwlkefh (ISSA) KOURTNEY NOVAK ([id number]) 1975 F Date Time Provider Department 10/10/24 ZULEMA WOOD During your visit today, we recorded the following information about you: Tere Escamilla LPN 10/10/2024 4:11 PM Addendum Received fax from [facility]. States that diagnosis code M19.9 ( inflammatory arthritis ) does not pass medical necessity for the [address]12 regarding CBC test. They needs a different order to be placed with another diagnosis code. Please fax to Jimbo Whitten at [phone]. Notice sent to scanning . Please route to [facility] nurse for follow up Tere Escamilla LPN 10/10/2024 5:01 PM Signed Faxed new order with updated diagnosis code . sent to [phone]. Allergies As of Date: 10/10/2024 (No Known Allergies) Date Reviewed: 05/30/2024 Reviewed by: Saritha Keith MA - Fully Assessed Reason for Visit: Roll Forger - Other [0241] Cmt: Lab order problem Primary Visit Diagnosis:Encounter for medication monitoring [Z51.81] Order(s):ASPARTATE AMINOTRANSFERASE/SGOT [SQAST] Order #: [id number] STANDING ALANINE AMINOTRANSFERASE / SGPT [SQALT] Order #: [id number] STANDING COMPLETE BLOOD COUNT [SQCBC] Order #: [id number] STANDING SEDIMENTATION RATE, WESTERGREN [SQWSR] Order #: [id number] STANDING C-REACTIVE PROTEIN [SQCRP] Order #: [id number] STANDING Prescriptions as of 10/10/2024 - DULoxetine [...] tension-type headache, intractable [G44*06/01/2023 Encounter Status:Closed by TERE ESCAMILLA on 10/10/24NoMagruder Memorial HospitalAlanine Aminotransferaseon 61-52-4471EZO [Catalytic activity/Vol]21 U/L NormalShorepoint Health Punta Gorda Physician GroupComment on above:Order Comment: FASTING.JKWPerformed By: #### LIPID, [id number], TSH3, T3F, FE PRO, [id number], T4T, MG, A1C WTH eA, CBC, PHOS #### [facility] [address] [place] [address] [place] #### INSULIN #### [facility] ,Alanine aminotransferase [Enzymatic activity/volume] in Serum or PlasmaOrdered By: Zulema Wood on 78-82-2426OYQ [Catalytic activity/Vol]Alanine aminotransferase [Enzymatic activity/volume] in Serum or PlasmaAdena Pike Medical CenterAspartate Amino Transferaseon 62-00-9721OYS [Catalytic activity/Vol]14 U/JYcwack16-09Nyw [facility] Physician GroupComment on above: Order Comment: FASTING.JKWPerformed By: #### LIPID, [id number], TSH3, T3F, FE PRO, [id number], T4T, MG, A1C WTH eA, CBC, PHOS #### [facility] [address] [place] [address] [place] #### INSULIN #### [facility] ,Aspartate aminotransferase [Enzymatic activity/volume] in Serum or Plasma Ordered By: Zulema Wood on 55-49-5738YNX [Catalytic activity/Vol]Aspartate aminotransferase [Enzymatic activity/volume] in Serum or Ewnwky13-46IcbyogwwxAdena Pike Medical CenterBasophils Auto (Bld) [#/Vol]Ordered By: Zulema Wood on 74-22-7695Eaegntska (Bld) [#/Vol]Automated basophil count0.0-0.2FMarietta Osteopathic ClinicBasophils/100 WBC Auto (Bld)Ordered By: Zulema Wood on 39-77-0613Uhrlpsjhq/100 WBC (Bld)Automated basophil %.[facility] CenterC reactive protein [Mass/volume] in Serum or PlasmaOrdered By: Zulema Wood on 32-66-9671HOO [Mass/Vol]C reactive protein [Mass/volume] in Serum or PlasmaHigh0.0-0.5FMarietta Osteopathic ClinicC-Reactive Proteinon 23-52-6989M-Reactive Protein0.7 mg/dLHigh0.0-0.5The [facility] Comment on above:Order Comment: FASTING.JKWResult Comment: PERFORMED BY: [place] [address] PATHOLOGIST FASTENER SEWING MACHINE OPERATOR PAKO RAMACHANDRAN M.D.Performed By: #### LIPID, [id number], TSH3, T3F, FE PRO, [id number], T4T, MG, A1C WTH eA, CBC, PHOS #### [address] #### INSULIN #### [facility] ,CNPHeather 34-16-1318JXICVfzmupitx (MAGDALENAUAV) KOURTNEY NOVAK ([id number]) 1975 F Date Time Provider Department 09/20/24 ZULEMA WOOD During your visit today, we recorded the following information about you: Tere Escamilla LPN 09/20/2024 5:47 PM Signed Lab results received from [facility] . Copy sent to scan, copy sent to provider folder for review. . Allergies As of Date: 09/20/2024 (No Known Allergies) Date Reviewed: 05/30/2024 Reviewed by: Saritha Keith MA - Fully Assessed Reason for Visit: Results [95] Cmt: Lab results from [facility] Prescriptions as of 09/21/2024 - etodolac [...] tension-type headache, intractable [G44*06/01/2023 Encounter Status:Closed by TERE ESCAMILLA on 09/21/24NoalCBellevue HospitalComplete Blood Count Auto Diffon 71-57-5418Xzqqbnnmm (Bld) [#/Vol]0.0 10*3/uLNormal0.0-0.2The [facility] Physician GroupComment on above:Order Comment: FASTING.JKWPerformed By: #### LIPID, [id number], TSH3, T3F, FE PRO, [id number], T4T, MG, A1C WTH eA, CBC, PHOS #### [address] #### INSULIN #### [facility] ,Basophils/100 WBC (Bld)0.6 %Normal.The [facility] Physician GroupComment on above:Order Comment: FASTING.JKWPerformed By: #### LIPID, [id number], TSH3, T3F, FE PRO, [id number], T4T, MG, A1C WTH eA, CBC, PHOS #### [place] [address] [place] #### INSULIN #### [facility] ,Eosinophils (Bld) [#/Vol]0.1 10*3/uLNormal0.0-0.45The [facility] Comment on above:Order Comment: FASTING.JKWPerformed By: #### LIPID, [id number], TSH3, T3F, FE PRO, [id number], T4T, MG, A1C WTH eA, CBC, PHOS #### [place] [address] [place] #### INSULIN #### [facility] ,Eosinophils/100 WBC (Bld)1.2 %Normal.The [facility] Physician GroupComment on above:Order Comment: FASTING.JKWPerformed By: #### LIPID, [id number], TSH3, T3F, FE PRO, [id number], T4T, MG, A1C WTH eA, CBC, PHOS #### [place] [address] [place] #### INSULIN #### [facility] ,Erythrocyte distribution width (RBC) [Ratio]13.0 %Lrjwjp18.9-15.3The [facility] Physician [facility] MadisonComment on above:Order Comment: FASTING.JKWPerformed By: #### LIPID, [id number], TSH3, T3F, FE PRO, [id number], T4T, MG, A1C WTH eA, CBC, PHOS #### [place] [address] [place] #### INSULIN #### [facility] ,Hematocrit (Bld) [Volume fraction]35.8 %Brnnem53.0-46.4The [facility] Physician GroupComment on above:Order Comment: FASTING.JKWPerformed By: #### LIPID, [id number], TSH3, T3F, FE PRO, [id number], T4T, MG, A1C WTH eA, CBC, PHOS #### [place] [address] [place] #### INSULIN #### [facility] ,Hemoglobin (Bld) [Mass/Vol]12.0 g/mGWwgvmc23.8-15.4The [facility] Physician GroupComment on above:Order Comment: FASTING.JKWPerformed By: #### LIPID, [id number], TSH3, T3F, FE PRO, [id number], T4T, MG, A1C WTH eA, CBC, PHOS #### [place] [address] [place] #### INSULIN #### [facility] ,Lymphocytes (Bld) [#/Vol]2.1 10*3/uLNormal1.00-4.8[facility] Comment on above:Order Comment: FASTING.JKWPerformed By: #### LIPID, [id number], TSH3, T3F, FE PRO, [id number], T4T, MG, A1C WTH eA, CBC, PHOS #### [place] [address] [place] #### INSULIN #### [facility] ,Lymphocytes/100 WBC (Bld)28.4 %Normal.The [facility] Physician GroupComment on above:Order Comment: FASTING.JKWPerformed By: #### LIPID, [id number], TSH3, T3F, FE PRO, [id number], T4T, MG, A1C WTH eA, CBC, PHOS #### [facility] [address] [place] [address] [place] #### INSULIN #### [facility] ,MCH (RBC) [Entitic mass]30.4 urKacqjf84.7-34.3The [facility] Comment on above:Order Comment: FASTING.JKWPerformed By: #### LIPID, [id number], TSH3, T3F, FE PRO, [id number], T4T, MG, A1C WTH eA, CBC, PHOS #### [place] [address] [place] #### INSULIN #### [facility] ,MCV (RBC) [Entitic vol]90.8 fKXauqez86-275Hjn [facility] Physician GroupComment on above:Order Comment: FASTING.JKWPerformed By: #### LIPID, [id number], TSH3, T3F, FE PRO, [id number], T4T, MG, A1C WTH eA, CBC, PHOS #### [place] [address] [place] #### INSULIN #### [facility] ,Mean Corpuscular HGB Conc33.5 g/cMWsvhvj10.0-35.0[facility] Comment on above:Order Comment: FASTING.JKWPerformed By: #### LIPID, [id number], TSH3, T3F, FE PRO, [id number], T4T, MG, A1C WTH eA, CBC, PHOS #### [place] [address] [place] #### INSULIN #### [facility] ,Monocytes (Bld) [#/Vol]1.0 10*3/uLHigh0.0-0.8[facility] Comment on above:Order Comment: FASTING.JKWPerformed By: #### LIPID, [id number], TSH3, T3F, FE PRO, [id number], T4T, MG, A1C WTH eA, CBC, PHOS #### [facility] [address] [place] [address] [place] #### INSULIN #### [facility] ,Monocytes/100 WBC (Bld)13.1 %Normal.The [facility] Physician GroupComment on above:Order Comment: FASTING.JKWPerformed By: #### LIPID, [id number], TSH3, T3F, FE PRO, [id number], T4T, MG, A1C WTH eA, CBC, PHOS #### [place] [address] [place] #### INSULIN #### [facility] ,Neutrophils (Bld) [#/Vol]4.3 10*3/uLNormal1.8-7.7The [facility] Comment on above:Order Comment: FASTING.JKWPerformed By: #### LIPID, [id number], TSH3, T3F, FE PRO, [id number], T4T, MG, A1C WTH eA, CBC, PHOS #### [place] [address] [place] #### INSULIN #### [facility] ,Neutrophils/100 WBC (Bld)56.7 %Normal.The [facility] Physician GroupComment on above:Order Comment: FASTING.JKWPerformed By: #### LIPID, [id number], TSH3, T3F, FE PRO, [id number], T4T, MG, A1C WTH eA, CBC, PHOS #### [place] [address] [place] #### INSULIN #### [facility] ,NRBC%0.0 /100{WBC}Normal0-0.5The [facility] Physician [facility] Health MadisonComment on above: Order Comment: FASTING.JKWPerformed By: #### LIPID, [id number], TSH3, T3F, FE PRO, [id number], T4T, MG, A1C WTH eA, CBC, PHOS #### [place] [address] [place] #### INSULIN #### [facility] ,Platelet mean volume (Bld) [Entitic vol]8.5 fLNormal6.3-10.7The [facility] Physician [facility] MadisonComment on above:Order Comment: FASTING.JKWPerformed By: #### LIPID, [id number], TSH3, T3F, FE PRO, [id number], T4T, MG, A1C WTH eA, CBC, PHOS #### [place] [address] [place] #### INSULIN #### [facility] ,Platelets (Bld) [#/Vol]353 10*3/bDDpofoy995-431Hsk [facility] Comment on above:Order Comment: FASTING.JKWPerformed By: #### LIPID, [id number], TSH3, T3F, FE PRO, [id number], T4T, MG, A1C WTH eA, CBC, PHOS #### [place] [address] [place] #### INSULIN #### [facility] ,RBC (Bld) [#/Vol]3.94 10*6/uLNormal3.60-5.00The [facility] Comment on above:Order Comment: FASTING.JKWPerformed By: #### LIPID, [id number], TSH3, T3F, FE PRO, [id number], T4T, MG, A1C WTH eA, CBC, PHOS #### [place] [address] [place] #### INSULIN #### [facility] ,WBC (Bld) [#/Vol]7.5 10*3/uLNormal3.8-11.6The [facility] Physician GroupComment on above:Order Comment: FASTING.JKWPerformed By: #### LIPID, [id number], TSH3, T3F, FE PRO, [id number], T4T, MG, A1C WTH eA, CBC, PHOS #### [facility] [address] [place] [address] #### INSULIN #### [facility] ,Eosinophils Auto (Bld) [#/Vol]Ordered By: Zulema Wood on 97-03-2526Ejvxvbruvcq (Bld) [#/Vol]Automated eosinophil count0.0-0.45[facility] CenterEosinophils/100 WBC Auto (Bld)Ordered By: Zulema Wood on 09-20-2024 Eosinophils/100 WBC (Bld)Automated eosinophil %.[facility] CenterErythrocyte Sedimentation Rateon 73-42-9393EYK (Bld) [Velocity]9 mm/h Normal0-19The [facility] Physician GroupComment on above:Order Comment: FASTING.JKWResult Comment: PERFORMED BY: [place] [address] PATHOLOGIST FASTENER SEWING MACHINE OPERATOR PAKO RAMACHANDRAN M.D.Performed By: #### LIPID, [id number], TSH3, T3F, FE PRO, [id number], T4T, MG, A1C WTH eA, CBC, PHOS #### [address] #### INSULIN #### [facility] ,Erythrocyte distribution width Auto (RBC) [Ratio]Ordered By: Zulema Wood on 75-81-2431Otsvyvszmkg distribution width (RBC) [Ratio]Erythrocyte distribution width [Ratio] by Automated count11.9-15.3FMarietta Osteopathic Clinic Erythrocyte sedimentation rate by Photometric methodOrdered By: Zulema Wood on 55-07-9383GQT Photometric method (Bld) [Velocity]Erythrocyte sedimentation rate by Photometric method0-19[facility] CenterHematocrit Auto (Bld) [Volume fraction]Ordered By: Zulema Wood on 58-31-4576Sedbojfpwh (Bld) [Volume fraction]Hematocrit [Volume Fraction] of Blood by Automated count34.0-46.4 [facility] CenterHemoglobin [Mass/volume] in BloodOrdered By: Zulema Wood on 13-50-4652Fpuodvhuxe (Bld) [Mass/Vol]Hemoglobin [Mass/volume] in Blood11.8-15.4FMarietta Osteopathic ClinicLeukocytes [#/volume] corrected for nucleated erythrocytes in Blood by Automated counOrdered By: Zulema Wood on 81-97-3085EWO corrected for nucl RBC Auto (Bld) [#/Vol]Leukocytes [#/volume] corrected for nucleated erythrocytes in Blood by Automated coun3.8-11.6FMarietta Osteopathic ClinicLymphocytes Auto (Bld) [#/Vol]Ordered By: Zulema Wood on 03-89-5764Rtpgbskrgjs (Bld) [#/Vol]Lymphocytes [#/volume] in Blood by Automated count1.00-4.8[facility] CenterLymphocytes/100 WBC Auto (Bld)Ordered By: Zulema Wood on 56-72-7500Qgcdsgfbrwf/100 WBC (Bld) Lymphocytes/100 leukocytes in Blood by Automated count.[facility]H Auto (RBC) [Entitic mass]Ordered By: Zulema Wood on 09-31-0292XXY (RBC) [Entitic mass]MCH [Entitic mass] by Automated count24.7-34.3 [facility] CenterMCHC Auto (RBC) [Mass/Vol]Ordered By: Zulema Wood on 78-35-3811MZAQ (RBC) [Mass/Vol]MCHC [Mass/volume] by Automated count 32.0-35.0[facility] CenterMCV Auto (RBC) [Entitic vol]Ordered By: Zulema Wood on 29-80-0202QVL (RBC) [Entitic vol]MCV [Entitic volume] by Automated izedz44-600NbyzwukvfAdena Pike Medical CenterMonocytes Auto (Bld) [#/Vol]Ordered By: Zulema Wood on 10-91-2307Zvzzielpv (Bld) [#/Vol]Automated blood monocyte countHigh0.0-0.8[facility] CenterMonocytes/100 WBC Auto (Bld)Ordered By: Zulema Wood on 65-15-2012Grnwkgzem/100 WBC (Bld) Automated monocyte %.[facility] CenterNeutrophils Auto (Bld) [#/Vol]Ordered By: Zulema Wood on 01-18-7586Snjwmillfhd (Bld) [#/Vol] Neutrophils [#/volume] in Blood by Automated count1.8-7.7FMarietta Osteopathic ClinicNeutrophils/100 WBC Auto (Bld)Ordered By: Zulema Wood on 77-78-3501Wodylpfzlum/100 WBC (Bld)Automated neutrophil %.[facility] CenterNucleated erythrocytes [Presence] in Blood by Automated count Ordered By: Zulema Wood on 66-81-7401Pzqngjpqq RBC Auto Ql (Bld)Nucleated erythrocytes [Presence] in Blood by Automated count0-0.5FMarietta Osteopathic ClinicPlatelet mean volume Auto (Bld) [Entitic vol]Ordered By: Zulema Wood on 77-81-2630Gyisqpdk mean volume (Bld) [Entitic vol]Platelet mean volume [Entitic volume] in Blood by Automated count6.3-10.7FMarietta Osteopathic ClinicPlatelets Auto (Bld) [#/Vol]Ordered By: Zulema Wood on 09-20-2024 Platelets (Bld) [#/Vol]Platelets [#/volume] in Blood by Automated -134 [facility] CenterRBC Auto (Bld) [#/Vol]Ordered By: Zulema Wood on 28-74-1216IOJ (Bld) [#/Vol]Erythrocytes [#/volume] in Blood by Automated count3.60-5.00[facility] CenterWBC Auto (Bld) [#/Vol]Ordered By: Zulema Wood on 53-33-9314AXM (Bld) [#/Vol]Leukocytes [#/volume] in Blood by Automated count3.8-11.6FMarietta Osteopathic ClinicMM screening mammo BI w/CADon 28-52-7581PA screening [facility] [place] [address] [place], [place] [address] Mammography Report Signed Patient: Kourtney Novak MR#: [id number] : 1975 Acct:[id number] Age/Sex: 48 / F ADM Date: 09/16/24 Loc: [place] Room: Type: [facility] Attending Dr: Referral Self Copies to: Jesus Gonzalez MD SELF,REFERRAL Ordering Provider: SELF,REFERRAL Date [...] Lincoln Hoffmann M.D.09/16/2024 2:40 PM Dictation Location: [facility] Transcribed By: GRACIE 09/16/24 1440 Dictated By: Lincoln Hoffmann MD 09/16/24 1437 Signed By: 09/16/24 1440[facility] Physician GroupMammography reportOrdered By: Lincoln Hoffmann on 26-34-4482Zwykcnsaxf imaging studyCHERRINGTON [facility] Main [place] [id number] Mammography Report Signed Patient: Kourtney Novak MR#: [id number] : 1975 Acct:[id number] Age/Sex: 48 / F ADM Date: 5 Loc: [place] Room: Type: [facility] Attending Dr: Referral Self Copies to: Jesus Gonzalez MD SELF,REFERRAL ~ Ordering Provider: SELF,REFERRAL [...] replaced by fat. Several scattered benign calcifications arenoted. There are no developing masses, typically malignant [...] Lincoln Hoffmann M.D.09/16/2024 2:40 PM Dictation Location: [facility] Transcribed By: GRACIE 09/16/24 1440 Dictated By: Lincoln Hoffmann MD 09/16/24 1437 Signed By: 09/16/24 1440 [facility] Work Phone: Thyrotropin [Units/volume] in Serum or PlasmaOrdered By: Jesus Gonzalez on 09-40-7812MCO Qn2.24 m[IU]/L0.45-5.33[facility] CenterThyroxine (T4) [Mass/volume] in Serum or PlasmaOrdered By: Jesus Gonzalez on 17-02-8805T1 [Mass/Vol]11.23 ug/dL5.39-11.82[facility] CenterTriiodothyronine (T3) Free [Mass/volume] in Serum or PlasmaOrdered By: Jesus Gonzalez on 73-79-3733Cmap T3 [Mass/Vol]2.96 pg/mL2.50-3.90[facility] CenterAlanine aminotransferase [Enzymatic activity/volume] in Serum or PlasmaOrdered By: Jesus Gonzalez on 48-11-3954ZKY [Catalytic activity/Vol]17 U/L 7-52[facility] CenterAlbumin [Mass/volume] in Serum or Plasma by Bromocresol green (BCG) dye binding methoOrdered By: Jesus Gonzalez on 05-12-2024 Albumin BCG dye [Mass/Vol]4.1 g/dL3.5-5.7FMarietta Osteopathic Clinic Alkaline phosphatase [Enzymatic activity/volume] in Serum or PlasmaOrdered By: Jesus Gonzalez on 69-42-9326CDW [Catalytic activity/Vol]42 U/N94-994VzctyopwyAdena Pike Medical CenterAnisocytosis LM Ql (Bld)Ordered By: Jesus Gonzalez on 51-90-6333Iyyayutzubxh Ql (Bld)SlightAdena Pike Medical CenterAspartate aminotransferase [Enzymatic activity/volume] in Serum or PlasmaOrdered By: Jesus Gonzalez on 87-51-3983BTR [Catalytic activity/Vol]11 U/SWvd00-05JklrtugfcAdena Pike Medical CenterBand form neutrophils/100 WBC Manual cnt (Bld)Ordered By: Jesus Gonzalez on 01-87-3042Iwno form neutrophils/100 WBC (Bld)1 %0-5FMarietta Osteopathic ClinicBasophils Auto (Bld) [#/Vol]Ordered By: Jesus Gonzalez on 48-62-1420Ammulcszv (Bld) [#/Vol]N/[facility] Basophils/100 WBC Auto (Bld)Ordered By: Jesus Gonzalez on 80-77-6997Nfcettbyw/100 WBC (Bld)N/[facility] DublinBasophils/100 WBC Manual cnt (Bld) Ordered By: Jesus Gonzalez on 74-80-0323Qmkjoippm/100 WBC (Bld)1 %0-2FMarietta Osteopathic ClinicBilirubin.total [Mass/volume] in Serum or PlasmaOrdered By: Jesus Gonzalez on 34-43-3951Rufqywvmb [Mass/Vol]0.4 mg/dL0.3-1.0[facility] CenterCalcium [Mass/volume] in Serum or PlasmaOrdered By: Jesus Gonzalez on 32-51-9693Tjvhqal [Mass/Vol]9.4 mg/dL8.6-10.3FMarietta Osteopathic ClinicCarbon dioxide, total [Moles/volume] in Serum or PlasmaOrdered By: Jesus Gonzalez on 98-29-4917TF9 [Moles/Vol]27.0 mmol/L21.0-31.0[facility] CenterChloride [Moles/volume] in Serum or PlasmaOrdered By: Jesus Gonzalez on 70-13-4392Sowmtcwo [Moles/Vol]101 mmol/X98-854IiwlsqvckAdena Pike Medical CenterCholesterol [Mass/volume] in Serum or PlasmaOrdered By: Jesus Gonzalez 85-20-2958Pemsdxhcjie [Mass/Vol]191 mg/xL579-191XfupfknvaAdena Pike Medical CenterComment on above:Chol less than 200 mg/dl low riskChol 201-239 mg/dl borderline riskChol 240 mg/dl and greater high riskCholesterol in LDL Calc [Mass/Vol]Ordered By: Jesus Gonzalez on 97-26-0386Audpanbzhrr in LDL [Mass/Vol]76 mg/dL0-100[facility] CenterComment on above:LDL ATP III CLASSIFICATIONLDL less than 100 mg/dL OptimalLDL 100-129 mg/dL Near or above wgjsswuXOP354-350 mg/dL Borderline highLDL 160-189 mg/dL HighLDL greater than 189 mg/dL Very highCholesterol in VLDL Calc [Mass/Vol]Ordered By: Jesus Gonzalez on 16-44-1617Rmelceqtomu in VLDL [Mass/Vol]29 mg/dLAdena Pike Medical CenterCreatinine [Mass/volume] in Serum or PlasmaOrdered By: Jesus Gonzalez on 63-60-5603Icfroggxvj [Mass/Vol]1.05 mg/dL0.60-1.20[facility] CenterEosinophils Auto (Bld) [#/Vol]Ordered By: Jesus Gonzalez on 05-12-2024 Eosinophils (Bld) [#/Vol]N/AFMarietta Osteopathic ClinicEosinophils/100 WBC Auto (Bld)Ordered By: Jesus Gonzalez on 93-15-8443Nhpnjexquxg/100 WBC (Bld)N/A [facility] CenterEosinophils/100 WBC Manual cnt (Bld)Ordered By: Jesus Gonzalez on 50-25-7849Bozwfjarmvm/100 WBC (Bld)2 %1-3FMarietta Osteopathic ClinicErythrocyte distribution width Auto (RBC) [Ratio]Ordered By: Jesus Gonzalez on 99-63-9611Hprfmpsfvca distribution width (RBC) [Ratio]13.9 % 11.9-15.3FMarietta Osteopathic ClinicFolate [Mass/volume] in Serum or PlasmaOrdered By: Jesus Gonzalez on 41-82-6724Mllccc [Mass/Vol]7.8 ng/mL>5.9 [facility] CenterComment on above:Folate reference range: >5.9 ng/mlThe WHO technical consultation on folate and vitamin e28kimievigajuu has determined that folate concentrations lessthan 4 ng/ml are considered deficient. Globulin Calc (S) [Mass/Vol]Ordered By: Jesus Gonzalez on 40-27-8050Eegwzzxz (S) [Mass/Vol]2.0 g/dLAdena Pike Medical CenterGlucose [Mass/volume] in Serum or PlasmaOrdered By: Jesus Gonzalez on 24-87-7218Veovmon [Mass/Vol]111 mg/dL Klnr71-746FcwipqbgfAdena Pike Medical CenterComment on above:ADA recommended reference rangeRandom Glucose Reference Range is dependent on time and content of last meal. Glucose of more than 200 mg/dL in a nonstressed, ambulatory subject supports the diagnosisof Diabetes Mellitus.Glucose mean value [Mass/volume] in Blood Estimated from glycated hemoglobinOrdered By: Jesus Gonzalez on 55-54-4323Lhtjyvj glucose Estimated from glycated hemoglobin (Bld) [Mass/Vol]114 mg/dLAdena Pike Medical CenterHematocrit Auto (Bld) [Volume fraction]Ordered By: Jesus Gonzalez on 16-33-9892Fmscuknfwn (Bld) [Volume fraction]39.1 %34.0-46.4FMarietta Osteopathic ClinicHemoglobin A1c percentageOrdered By: Jesus Gonzalez on 71-52-2524LpU9w (Bld) [Mass fraction]5.6 % 4.3-5.6FMarietta Osteopathic ClinicComment on above:Increased risk for diabetes: 5.7 - 6.4diabetes: >6.4glycemic control for adults with diabetes: &l t;7.0Hemoglobin [Mass/volume] in BloodOrdered By: Jesus Gonzalez on 05-12-2024 Hemoglobin (Bld) [Mass/Vol]12.9 g/dL11.8-15.4FMarietta Osteopathic Clinic Iron [Mass/volume] in Serum or PlasmaOrdered By: Jesus Gonzalez on 72-15-9810Pygy [Mass/Vol]80 ug/cR44-317KilderpvxAdena Pike Medical CenterLeukocytes [#/volume] corrected for nucleated erythrocytes in Blood by Automated counOrdered By: Jesus Gonzalez on 23-35-7617TLM corrected for nucl RBC Auto (Bld) [#/Vol]11.8 10*3/uLHigh3.8-11.6FMarietta Osteopathic ClinicLymphocytes Auto (Bld) [#/Vol]Ordered By: Jesus Gonzalez on 23-24-4668Tnnfvqxvqad (Bld) [#/Vol]N/A [facility] CenterLymphocytes/100 WBC Auto (Bld)Ordered By: Jesus Gonzalez on 20-47-7905Xfrpghlfzrc/100 WBC (Bld)N/AFMarietta Osteopathic ClinicLymphocytes/100 WBC Manual cnt (Bld)Ordered By: Jesus Gonzalez on 05-12-2024 Lymphocytes/100 WBC (Bld)28 %18-42[facility] CenterMCH Auto (RBC) [Entitic mass]Ordered By: Jesus Gonzalez on 54-01-5901HSJ (RBC) [Entitic mass]29.9 pg24.7-34.3FMarietta Osteopathic ClinicMCHC Auto (RBC) [Mass/Vol] Ordered By: Jesus Gonzalez on 29-89-5192KPFZ (RBC) [Mass/Vol]33.0 g/dL32.0-35.0 [facility] CenterMCV Auto (RBC) [Entitic vol]Ordered By: Jesus Gonzalez on 80-77-7042UXA (RBC) [Entitic vol]90.8 aM84-007TocrqdvltAdena Pike Medical CenterMetamyelocytes/100 WBC Manual cnt (Bld)Ordered By: Jesus Gonzalez on 69-74-1190Klbyrgbqzxllwb/100 WBC (Bld)2 %High0-0[facility] CenterMicrocytes LM Ql (Bld)Ordered By: Jesus Gonzalez on 35-25-2017Kkrmlfukfc Ql (Bld)SlightAdena Pike Medical CenterMonocytes Auto (Bld) [#/Vol]Ordered By: Jesus Gonzalez on 69-54-2474Ngfpbublo (Bld) [#/Vol]N/[facility]Monocytes/100 WBC Auto (Bld)Ordered By: Jesus Gonzalez on 05-12-2024 Monocytes/100 WBC (Bld)N/[facility] DublinMonocytes/100 WBC Manual cnt (Bld)Ordered By: Jesus Gonzalez on 92-32-0827Czvravbfk/100 WBC (Bld)12 % High2-11[facility] CenterNeutrophils Auto (Bld) [#/Vol]Ordered By: Jesus Gonzalez on 51-31-8876Vzdnppenjxf (Bld) [#/Vol]N/[facility] DublinNeutrophils/100 WBC Auto (Bld)Ordered By: Jesus Gonzalez on 66-83-3973Lvkpsovqohv/100 WBC (Bld)N/[facility] DublinNo Panel InformationOrdered By: Jesus Gonzalez on 93-02-9365Xfaqigqzt GFR (CKD-EPI)> 60.0 mL/MinAdena Pike Medical CenterPharmacy Creatinine Clearance (ChemN/A [facility] CenterNucleated erythrocytes [Presence] in Blood by Automated countOrdered By: Jesus Gonzalez on 21-95-9076Fnizfoich RBC Auto Ql (Bld) N/[facility] DublinPlatelet adequacy [Presence] in Blood by Light microscopyOrdered By: Jesus Gonzalez on 45-19-0587Lrjfciova LM Ql (Bld)Normal NormalAdena Pike Medical CenterPlatelet mean volume Auto (Bld) [Entitic vol]Ordered By: Jesus Gonzalez on 80-05-0073Hpblmwgw mean volume (Bld) [Entitic vol]8.1 fL6.3-10.7FMarietta Osteopathic ClinicPlatelet morphology finding [Identifier] in BloodOrdered By: Jesus Gonzalez on 35-57-9914Rsomepnn morphology finding Nom (Bld)NormalNormalAdena Pike Medical CenterPlatelets Auto (Bld) [#/Vol]Ordered By: Jesus Gonzalez on 23-82-2563Ocnuitneq (Bld) [#/Vol]392 10*3/oC171-726VeiyntnhbAdena Pike Medical CenterPotassium [Moles/volume] in Serum or PlasmaOrdered By: Jesus Gonzalez on 82-82-5935Zgxzmvqvi [Moles/Vol]4.1 mmol/L 3.5-5.1FMarietta Osteopathic ClinicProtein [Mass/volume] in Serum or Plasma Ordered By: Jesus Gonzalez on 27-44-8647Hgqqlwb [Mass/Vol]6.1 g/dLLow6.4-8.9 [facility] CenterRB Auto (Bld) [#/Vol]Ordered By: Jesus Gonzalez on 30-01-1601TSD (Bld) [#/Vol]4.30 10*6/uL3.60-5.00[facility] morphologyOrdered By: Jesus Gonzalez on 71-42-7060OIJ morphology finding Nom (Bld)N/[facility] Centeregmented neutrophils/100 WBC Manual cnt (Bld)Ordered By: Jesus Gonzalez on 41-33-0154Jemlwwnzi neutrophils/100 WBC (Bld)54 %50-70[facility] Hospitalerum or plasma albumin/globulin mass ratioOrdered By: Jesus Gonzalez on 01-07-6825Aomgzhr/Globulin [Mass ratio]2.1 {ratio}[facility] Hospitalerum or plasma anion gap determinationOrdered By: Jesus Gonzalez on 14-30-0322Puood gap [Moles/Vol]12.1 mmol/L6.0-15.0[facility] Hospitalerum or plasma high density lipoprotein (HDL) cholesterol measurementOrdered By: Jesus Gonzalez on 05-12-2024 Cholesterol in HDL [Mass/Vol]86 mg/pP98-46UderqvfwiAdena Pike Medical Center Comment on above:HDL CHOL ATP-III CLASSIFICATION Cardiovascular RiskHDL > or equal to 60 mg/dL LOWHDL < 40 mg/dL HIGHSerum or plasma insulin measurement (units/volume)Ordered By: Jesus Gonzalez on 48-34-1802Niqdatd Qn38.1 u[iU]/mLHigh 2.6-24.9[facility] CenterComment on above:Performed at: [place] [id number] Director: Maxim Daniel PhD, Phone: [phone] or plasma total cholesterol/high density lipoprotein (HDL) cholesterol mass ratOrdered By: Jesus Gonzalez on 05-12-2024 Cholesterol.total/Cholesterol in HDL [Mass ratio]2.2 {ratio}<5.0[facility] Hospitalodium [Moles/volume] in Serum or PlasmaOrdered By: Jesus Gonzalez on 71-68-3101Hfxntj [Moles/Vol]136 mmol/U716-936ArgwtnlraAdena Pike Medical CenterThyrotropin [Units/volume] in Serum or PlasmaOrdered By: Jesus Gonzalez on 49-61-6740HKX Qn6.32 m[IU]/LHigh0.45-5.33[facility] CenterThyroxine (T4) [Mass/volume] in Serum or PlasmaOrdered By: Jesus Gonzalez on 87-59-0828Q7 [Mass/Vol]11.59 ug/dL5.39-11.82[facility] Triglyceride [Mass/volume] in Serum or PlasmaOrdered By: Jesus Gonzalez on 93-42-2928Demtcspmspta [Mass/Vol]146 mg/dL0-149[facility] Comment on above:TRIG ATP III CLASSIFICATIONTRIG less than 150 mg/dL NormalTRIG 150-199 mg/dL Borderline highTRIG 200-500 mg/dL High TRIG greater than 500 mg/dL Very highStandard traceable to the Center for Disease Conrtrol and Prevention (CDC) test method.Triiodothyronine (T3) Free [Mass/volume] in Serum or Plasma Ordered By: Jesus Gonzalez on 45-25-5885Gphe T3 [Mass/Vol]3.61 pg/mL2.50-3.90 [facility] CenterUrea nitrogen [Mass/volume] in Serum or Plasma Ordered By: Jesus Gonzalez on 18-68-7528Fvhc nitrogen [Mass/Vol]20 mg/dL7-25 [facility] CenterVitamin B12 ser/plasOrdered By: Jesus Gonzalez on 97-02-2138Icssncgab (Vitamin B12) [Mass/Vol]306 pg/rL870-525GhfvefuehAdena Pike Medical CenterVitamin D+Metabolites [Mass/volume] in Serum or PlasmaOrdered By: Jesus Gonzalez on 66-76-7958Fwroqgy D+Metabolites [Mass/Vol]39.9 ng/aZ21-706 [facility] CenterComment on above:VITAMIN D STATUS 25(OH)VITAMIN D RANGE (ng/mL) Deficient <20 Insufficient 20 to <85Lkappxujvw39 to 100Reference: Nain MF,Anum NC, Brynn APARICIO, et al. Evaluation,treatment, and prevention of vitamin D deficiency; an Endocrine Society clinical practice guideline. JCEM. 2010; 96(7):1911-30.WBC Auto (Bld) [#/Vol]Ordered By: Jesus Gonzalez on 97-43-1047KXA (Bld) [#/Vol]11.8 10*3/uL High3.8-11.6FMarietta Osteopathic ClinicCT BRAIN WO IVCONon [id number] BRAIN WO IVCON* * *Final Report* * * DATE OF [...] soft tissue component identified in the orbit. Client Relations Specialist: GUANACO Transcribe Date/Time: Jan 31 2024 3:33P Dictated by : NATIVIDAD PRIEST MD This examination was interpreted and the report reviewed and electronically signed by: NATIVIDAD PRIEST MD on Jan 31 2024 3:37PM EST [id number] Coast HospitalMRI SKULL BASE WO/W IVCONon 86-72-7820IOS SKULL BASE WO/W IVCON* * *Final Report* * * DATE OF [...] tissue mass extending into the of the milling general superintendent or parapharyngeal spaces. The soft tissue planes of the, retropharyngeal, and prevertebral spaces are maintained. The visualized parotid glands are normal in appearance. Nasopharynx/Oropharynx: The nasopharynx and oropharynx are normal in appearance. 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 Client Relations Specialist: GUANACO Transcribe Date/Time: Jan 31 2024 5:10P Dictated by : WESTLEY IYER MD This examination was interpreted and the report reviewed and electronically signed by: WESTLEY IYER MD on Jan 31 2024 5:28PM EST [id number] Light C.A. Dean HospitalAlanine aminotransferase [Enzymatic activity/volume] in Serum or PlasmaOrdered By: Zulema Wood on 96-73-8811ICC [Catalytic activity/Vol]22 U/L7-52[facility] CenterAspartate aminotransferase [Enzymatic activity/volume] in Serum or Plasma Ordered By: Zulema Wood on 18-53-6039NEU [Catalytic activity/Vol]16 U/L13-39 [facility] CenterBasophils Auto (Bld) [#/Vol]Ordered By: Zulema Wood on 37-37-1235Kgwfyfldt (Bld) [#/Vol]0.1 10*3/uL0.0-0.2FMarietta Osteopathic ClinicBasophils/100 WBC Auto (Bld)Ordered By: Zulema Wood on 01-08-2024 Basophils/100 WBC (Bld)1.1 %.[facility] CenterCreatinine [Mass/volume] in Serum or PlasmaOrdered By: Zulema Wood on 90-85-8390Lxlwnznlgp [Mass/Vol]1.00 mg/dL0.60-1.20[facility] CenterEosinophils Auto (Bld) [#/Vol]Ordered By: Zulema Wood on 80-78-1441Wejdcsbhotj (Bld) [#/Vol]0.1 10*3/uL0.0-0.45[facility] CenterEosinophils/100 WBC Auto (Bld) Ordered By: Zulema Wood on 18-42-0113Ytcnbkwtepq/100 WBC (Bld)1.8 %.[facility] CenterErythrocyte distribution width Auto (RBC) [Ratio]Ordered By: Zulema Wood on 23-26-9230Rtdbggnxyjc distribution width (RBC) [Ratio]13.1 % 11.9-15.3FMarietta Osteopathic ClinicHematocrit Auto (Bld) [Volume fraction]Ordered By: Zulema Wood on 92-70-8231Vsyzcjdazy (Bld) [Volume fraction]39.2 %34.0-46.4FMarietta Osteopathic ClinicHemoglobin [Mass/volume] in BloodOrdered By: Zulema Wood on 77-16-8529Uiklxvetdz (Bld) [Mass/Vol]13.1 g/dL11.8-15.4FMarietta Osteopathic ClinicLeukocytes [#/volume] corrected for nucleated erythrocytes in Blood by Automated coun Ordered By: Zulema Wood on 64-30-9719BGJ corrected for nucl RBC Auto (Bld) [#/Vol]6.8 10*3/uL3.8-11.6FMarietta Osteopathic ClinicLymphocytes Auto (Bld) [#/Vol]Ordered By: Zulema Wood on 68-98-2956Cgzwurjfpmr (Bld) [#/Vol]2.0 10*3/uL1.00-4.8[facility] CenterLymphocytes/100 WBC Auto (Bld) Ordered By: Zulema Wood on 08-87-6905Ydnidvihmya/100 WBC (Bld)29.3 %.[facility] CenterMCH Auto (RBC) [Entitic mass]Ordered By: Zulema Wood on 73-62-5251JZV (RBC) [Entitic mass]30.6 pg24.7-34.3FMarietta Osteopathic ClinicMCHC Auto (RBC) [Mass/Vol]Ordered By: Zulema Wood on 17-94-9535QMQP (RBC) [Mass/Vol]33.4 g/dL32.0-35.0[facility] CenterMCV Auto (RBC) [Entitic vol]Ordered By: Zulema Wood on 60-75-0141CJK (RBC) [Entitic vol]91.5 nB00-650BrpfwbtvhAdena Pike Medical CenterMonocytes Auto (Bld) [#/Vol]Ordered By: Zulema Wood on 85-21-6232Lxjtibliv (Bld) [#/Vol]0.8 10*3/uL0.0-0.8[facility] CenterMonocytes/100 WBC Auto (Bld)Ordered By: Zulema Wood on 34-07-4024Rmkvevuuh/100 WBC (Bld)11.3 %.[facility] Neutrophils Auto (Bld) [#/Vol]Ordered By: Zulema Wood on 43-90-0243Kisujxsrgeu (Bld) [#/Vol]3.9 10*3/uL1.8-7.7FMarietta Osteopathic ClinicNeutrophils/100 WBC Auto (Bld)Ordered By: Zulema Wood on 49-92-5663Fedyxwhxfts/100 WBC (Bld) 56.5 %.[facility] CenterNo Panel InformationOrdered By: Zulema Wood on 23-60-5275Psdbfqgbi GFR (CKD-EPI)> 60.0 mL/MinAdena Pike Medical CenterPharmacy Creatinine Clearance (ChemN/[facility] DublinNucleated erythrocytes [Presence] in Blood by Automated countOrdered By: Zulema Wood on 76-30-5151Zcjiyeupi RBC Auto Ql (Bld)0.1 /100{WBC}0-0.5FMarietta Osteopathic ClinicPlatelet mean volume Auto (Bld) [Entitic vol]Ordered By: Zulema Wood on 55-91-6152Yckwlwuc mean volume (Bld) [Entitic vol]8.4 fL6.3-10.7 [facility] CenterPlatelets Auto (Bld) [#/Vol]Ordered By: Zulema Wood on 80-49-7819Gyauuiojp (Bld) [#/Vol]284 10*3/bD403-186WymbkapsuAdena Pike Medical CenterRBC Auto (Bld) [#/Vol]Ordered By: Zulema Wood on 10-79-7473GHX (Bld) [#/Vol]4.29 10*6/uL3.60-5.00[facility] CenterWBC Auto (Bld) [#/Vol]Ordered By: Zulema Wood on 43-28-4822FRA (Bld) [#/Vol]6.8 10*3/uL 3.8-11.6FMarietta Osteopathic ClinicBasophils Auto (Bld) [#/Vol]Ordered By: Jesus Gonzalez on 52-88-8579Jzysegjrw (Bld) [#/Vol]0.1 10*3/uL0.0-0.2FMarietta Osteopathic ClinicBasophils/100 WBC Auto (Bld)Ordered By: Jesus Gonzalez on 50-67-8039Azrvgmfda/100 WBC (Bld)1.0 %.[facility] Eosinophils Auto (Bld) [#/Vol]Ordered By: Jesus Gonzalez on 27-27-0500Vtsbvqiluje (Bld) [#/Vol]0.1 10*3/uL0.0-0.45[facility] CenterEosinophils/100 WBC Auto (Bld)Ordered By: Jesus Gonzalez on 56-50-9011Fprrjdrcorz/100 WBC (Bld)1.3 %.[facility] CenterErythrocyte distribution width Auto (RBC) [Ratio]Ordered By: Jesus Gonzalez on 35-53-9756Mzrgzwwvylk distribution width (RBC) [Ratio]13.3 %11.9-15.3FMarietta Osteopathic ClinicFerritin [Mass/volume] in Serum or PlasmaOrdered By: Jesus Gonzalez on 22-43-0298Ucydcrme [Mass/Vol]88.4 ng/mL11.0-306.8[facility] CenterHematocrit Auto (Bld) [Volume fraction]Ordered By: Jesus Gonzalez on 25-60-6812Igxnvqbogx (Bld) [Volume fraction] 39.9 %34.0-46.4FMarietta Osteopathic ClinicHemoglobin [Mass/volume] in BloodOrdered By: Jesus Gonzalez on 68-49-1885Qbecsagxco (Bld) [Mass/Vol]13.0 g/dL 11.8-15.4FMarietta Osteopathic ClinicIron [Mass/volume] in Serum or Plasma Ordered By: Jesus Gonzalez on 08-05-8438Aqll [Mass/Vol]93 ug/iE28-849AbqrtduxjAdena Pike Medical CenterLeukocytes [#/volume] corrected for nucleated erythrocytes in Blood by Automated counOrdered By: Jesus Gonzalez on 12-26-6239MWE corrected for nucl RBC Auto (Bld) [#/Vol]8.7 10*3/uL3.8-11.6FMarietta Osteopathic ClinicLymphocytes Auto (Bld) [#/Vol]Ordered By: Jesus Gonzalez on 62-93-7341Edbliglztjf (Bld) [#/Vol]3.7 10*3/uL1.00-4.8[facility] CenterLymphocytes/100 WBC Auto (Bld)Ordered By: Jesus Gonzalez on 11-11-2023 Lymphocytes/100 WBC (Bld)42.6 %.[facility] CenterMCH Auto (RBC) [Entitic mass]Ordered By: Jesus Gonzalez on 63-84-7850JPT (RBC) [Entitic mass]30.0 pg24.7-34.3FMarietta Osteopathic ClinicMCHC Auto (RBC) [Mass/Vol]Ordered By: Jesus Gonzalez on 58-31-8214PHVC (RBC) [Mass/Vol]32.6 g/dL32.0-35.0[facility] CenterMCV Auto (RBC) [Entitic vol]Ordered By: Jesus Gonzalez on 41-41-0263BSI (RBC) [Entitic vol]92.1 vP85-520AuaaksaceAdena Pike Medical Center Monocytes Auto (Bld) [#/Vol]Ordered By: Jesus Gonzalez on 33-19-2804Oswmkjurk (Bld) [#/Vol]0.9 10*3/uL0.0-0.8[facility] CenterMonocytes/100 WBC Auto (Bld)Ordered By: Jesus Gonzalez on 57-52-3063Cefwkeydg/100 WBC (Bld)9.8 %. [facility] CenterNeutrophils Auto (Bld) [#/Vol]Ordered By: Jesus Gonzalez on 89-81-6893Xkewcbdxxbv (Bld) [#/Vol]4.0 10*3/uL1.8-7.7FMarietta Osteopathic ClinicNeutrophils/100 WBC Auto (Bld)Ordered By: Jesus Gonzalez on 27-04-4687Eimkhxidybh/100 WBC (Bld)45.3 %.[facility] Nucleated erythrocytes [Presence] in Blood by Automated countOrdered By: Jesus Gonzalez on 03-83-7474Simsejiae RBC Auto Ql (Bld)0.1 /100{WBC}0-0.5FMarietta Osteopathic ClinicPlatelet mean volume Auto (Bld) [Entitic vol]Ordered By: Jesus Gonzalez on 39-10-6826Dzsaeyzf mean volume (Bld) [Entitic vol]9.0 fL6.3-10.7 [facility] CenterPlatelets Auto (Bld) [#/Vol]Ordered By: Jesus Gonzalez on 85-70-0487Wpndxcnse (Bld) [#/Vol]363 10*3/nX250-742WwbxffowgAdena Pike Medical CenterRBC Auto (Bld) [#/Vol]Ordered By: Jesus Gonzalez on 50-21-6018TBI (Bld) [#/Vol]4.34 10*6/uL3.60-5.00[facility] CenterWBC Auto (Bld) [#/Vol]Ordered By: Jesus Gonzalez on 60-30-9768QBC (Bld) [#/Vol]8.7 10*3/uL 3.8-11.6FMarietta Osteopathic ClinicAlanine aminotransferase [Enzymatic activity/volume] in Serum or PlasmaOrdered By: Jesus Gonzalez on 98-87-6757RIE [Catalytic activity/Vol]14 U/L7-52[facility] CenterAlbumin [Mass/volume] in Serum or Plasma by Bromocresol green (BCG) dye binding metho Ordered By: Jesus Gonzalez on 12-62-2206Ubmtrim BCG dye [Mass/Vol]4.1 g/dL3.5-5.7 [facility] CenterAlkaline phosphatase [Enzymatic activity/volume] in Serum or PlasmaOrdered By: Jesus Gonzalez on 66-13-8727QWQ [Catalytic activity/Vol]45 U/S03-216HyfzyvgkgAdena Pike Medical CenterAspartate aminotransferase [Enzymatic activity/volume] in Serum or PlasmaOrdered By: Jesus Gonzalez on 72-61-6392UXH [Catalytic activity/Vol]12 U/J04-96ObzvyxfzhAdena Pike Medical CenterBasophils Auto (Bld) [#/Vol]Ordered By: Jesus Gonzalez on 35-14-0576Wocjikqwl (Bld) [#/Vol]0.1 10*3/uL0.0-0.2FMarietta Osteopathic ClinicBasophils/100 WBC Auto (Bld)Ordered By: Jesus Gonzalez on 05-22-2023 Basophils/100 WBC (Bld)0.9 %.[facility] CenterBilirubin.total [Mass/volume] in Serum or PlasmaOrdered By: Jesus Gonzalez on 95-63-4936Djqauxtxq [Mass/Vol]0.3 mg/dL0.3-1.0[facility] CenterCalcium [Mass/volume] in Serum or PlasmaOrdered By: Jesus Gonzalez on 18-29-6247Delsijp [Mass/Vol]9.5 mg/dL8.6-10.3FMarietta Osteopathic ClinicCarbon dioxide, total [Moles/volume] in Serum or PlasmaOrdered By: Jesus Gonzalez on 93-70-2087PH5 [Moles/Vol]25.4 mmol/L21.0-31.0[facility] CenterChloride [Moles/volume] in Serum or PlasmaOrdered By: Jesus Gonzalez on 94-94-0658Cwutystm [Moles/Vol]106 mmol/T26-104AwrsoqqwtAdena Pike Medical CenterCholesterol [Mass/volume] in Serum or PlasmaOrdered By: Jesus Gonzalez on 79-51-7342Nrjhekjcucw [Mass/Vol]182 mg/zZ796-647SqepqsjarAdena Pike Medical CenterComment on above: Chol less than 200 mg/dl low riskChol 201-239 mg/dl borderline riskChol 240 mg/dl and greater high riskCholesterol in LDL Calc [Mass/Vol]Ordered By: Jesus Gonzalez on 13-42-2707Vqziqqidtol in LDL [Mass/Vol]58 mg/dL0-100A[facility]ike Medical CenterComment on above:LDL ATP III CLASSIFICATIONLDL less than 100 mg/dL OptimalLDL 100-129 mg/dL Near or above udcuqbiPWV563-524 mg/dL Borderline highLDL 160-189 mg/dL HighLDL greater than 189 mg/dL Very highCholesterol in VLDL Calc [Mass/Vol]Ordered By: Jesus Gonzalez on 88-92-9730Fsccgsdnpgy in VLDL [Mass/Vol]44 mg/dLAdena Pike Medical CenterCreatinine [Mass/volume] in Serum or PlasmaOrdered By: Jesus Gonzalez on 83-48-0038Tiiwfjuloj [Mass/Vol]0.89 mg/dL0.60-1.20A[facility] Medical CenterEosinophils Auto (Bld) [#/Vol] Ordered By: Jesus Gonzalez on 07-30-3539Nlxxgkxdego (Bld) [#/Vol]0.1 10*3/uL 0.0-0.45A[facility] Medical CenterEosinophils/100 WBC Auto (Bld)Ordered By: Jesus Gonzalez on 97-92-5497Ypwwiykxsht/100 WBC (Bld)1.3 %.[facility] Medical CenterErythrocyte distribution width Auto (RBC) [Ratio]Ordered By: Jesus Gonzalez on 83-78-4026Wpyvblfmnvp distribution width (RBC) [Ratio]20.4 % 11.9-15.3FMarietta Osteopathic ClinicFerritin [Mass/volume] in Serum or PlasmaOrdered By: Jesus Gonzalez on 91-31-5447Xycekraz [Mass/Vol]147.2 ng/mL 11.0-306.8A[facility] Medical CenterGlobulin Calc (S) [Mass/Vol]Ordered By: Jesus Gonzalez on 70-17-6013Qlrrhact (S) [Mass/Vol]1.8 g/dLAdena Pike Medical CenterGlucose [Mass/volume] in Serum or PlasmaOrdered By: Jesus Gonzalez on 82-37-3840Eurhnnd [Mass/Vol]88 mg/qT29-564YyfgvkxpmAdena Pike Medical Center Comment on above:ADA recommended reference rangeRandom Glucose Reference Range is dependent on time and content of last meal. Glucose of more than 200 mg/dL in a nonstressed, ambulatory subject supports the diagnosisof Diabetes Mellitus. Glucose mean value [Mass/volume] in Blood Estimated from glycated hemoglobin Ordered By: Jesus Gonzalez on 29-83-2388Jxlprni glucose Estimated from glycated hemoglobin (Bld) [Mass/Vol]105 mg/dLAdena Pike Medical CenterHematocrit Auto (Bld) [Volume fraction]Ordered By: Jesus Gonzalez on 62-34-8046Fyolnjwsmz (Bld) [Volume fraction]37.0 %34.0-46.4FMarietta Osteopathic Clinic Hemoglobin A1c percentageOrdered By: Jesus Gonzalez on 98-83-5878FmN3k (Bld) [Mass fraction]5.3 %4.3-5.6FMarietta Osteopathic ClinicComment on above:Increased risk for diabetes: 5.7 - 6.4diabetes: >6.4glycemic control for adults with diabetes: <7.0Hemoglobin [Mass/volume] in BloodOrdered By: Jesus Gonzalez on 07-83-0292Smgjdhxcpu (Bld) [Mass/Vol]11.9 g/dL11.8-15.4FMarietta Osteopathic ClinicIron [Mass/volume] in Serum or PlasmaOrdered By: Jesus Gonzalez on 59-35-5395Tdbi [Mass/Vol]57 ug/vN20-400BqvlrsvngAdena Pike Medical Center Leukocytes [#/volume] corrected for nucleated erythrocytes in Blood by Automated counOrdered By: Jesus Gonzalez on 81-57-0477XTS corrected for nucl RBC Auto (Bld) [#/Vol]9.6 10*3/uL3.8-11.6FMarietta Osteopathic ClinicLymphocytes Auto (Bld) [#/Vol]Ordered By: Jesus Gonzalez on 26-88-6211Klwepoakfcj (Bld) [#/Vol]2.2 10*3/uL1.00-4.8A[facility] Medical CenterLymphocytes/100 WBC Auto (Bld) Ordered By: Jesus Gonzalez on 13-34-8454Znxyucldzsb/100 WBC (Bld)22.5 %.[facility] Medical CenterMCH Auto (RBC) [Entitic mass]Ordered By: Jesus Gonzalez on 64-68-2059NDZ (RBC) [Entitic mass]27.7 pg24.7-34.3FMarietta Osteopathic ClinicMCHC Auto (RBC) [Mass/Vol]Ordered By: Jesus Gonzalez on 39-12-4458SLZN (RBC) [Mass/Vol]32.2 g/dL32.0-35.0A[facility] Medical CenterMCV Auto (RBC) [Entitic vol]Ordered By: Jesus Gonzalez on 56-43-4721ZXZ (RBC) [Entitic vol]85.8 fL 80-100A[facility] Medical CenterMonocytes Auto (Bld) [#/Vol]Ordered By: Jesus Gonzalez on 91-66-9087Vbeikcucz (Bld) [#/Vol]1.0 10*3/uL0.0-0.8A[facility] Medical CenterMonocytes/100 WBC Auto (Bld)Ordered By: Jesus Gonzalez on 37-72-9724Yhwudicqy/100 WBC (Bld)9.9 %.[facility] Neutrophils Auto (Bld) [#/Vol]Ordered By: Jesus Gonzalez on 05-75-4878Dxlbddhcdwg (Bld) [#/Vol]6.3 10*3/uL1.8-7.7FMarietta Osteopathic ClinicNeutrophils/100 WBC Auto (Bld)Ordered By: Jesus Gonzalez on 09-27-9924Ersizaicfit/100 WBC (Bld)65.4 %.[facility] CenterNo Panel InformationOrdered By: Jesus Gonzalez on 36-37-6864Nqqlgcwba GFR (CKD-EPI)> 60.0 mL/MinAdena Pike Medical CenterPharmacy Creatinine Clearance (ChemN/[facility] Nucleated erythrocytes [Presence] in Blood by Automated countOrdered By: Jesus Gonzalez on 05-15-0408Cscrqsvxm RBC Auto Ql (Bld)0.1 /100{WBC}0-0.5FMarietta Osteopathic ClinicPlatelet mean volume Auto (Bld) [Entitic vol]Ordered By: Jesus Gonzalez on 64-10-3503Tyxibazz mean volume (Bld) [Entitic vol]9.0 fL6.3-10.7 [facility] Medical CenterPlatelets Auto (Bld) [#/Vol]Ordered By: Jesus Gonzalez on 26-74-8088Zxduhunaj (Bld) [#/Vol]339 10*3/yN152-281CrtajiabcAdena Pike Medical CenterPotassium [Moles/volume] in Serum or PlasmaOrdered By: Jesus Gonzalez on 17-45-5319Bxlbuaxjp [Moles/Vol]3.9 mmol/L3.5-5.1FMarietta Osteopathic ClinicProtein [Mass/volume] in Serum or PlasmaOrdered By: Jesus Gonzalez on 93-73-1431Qhxhqgo [Mass/Vol]5.9 g/dL6.4-8.9A[facility]ike Medical CenterRBC Auto (Bld) [#/Vol]Ordered By: Jesus Gonzalez on 35-65-8424FJY (Bld) [#/Vol]4.31 10*6/uL3.60-5.00[facility] Hospitalerum or plasma albumin/globulin mass ratioOrdered By: Jesus Gonzalez on 01-17-5988Dawyjhv/Globulin [Mass ratio]2.3 {ratio}[facility] Hospitalerum or plasma anion gap determinationOrdered By: Jesus Gonzalez on 85-28-3380Wkege gap [Moles/Vol]10.5 mmol/L6.0-15.0[facility] Hospitalerum or plasma high density lipoprotein (HDL) cholesterol measurementOrdered By: Jesus Gonzalez on 05-22-2023 Cholesterol in HDL [Mass/Vol]79 mg/kV02-03HbgtjgnmaAdena Pike Medical Center Comment on above:HDL CHOL ATP-III CLASSIFICATION Cardiovascular RiskHDL > or equal to 60 mg/dL LOWHDL < 40 mg/dL HIGHSerum or plasma total cholesterol/high density lipoprotein (HDL) cholesterol mass ratOrdered By: Jesus Gonzalez on 54-34-7999Skvvmvmtlyj.total/Cholesterol in HDL [Mass ratio]2.3 {ratio}<5.0 [facility] Hospitalodium [Moles/volume] in Serum or PlasmaOrdered By: Jesus Gonzalez on 48-19-1506Viydjv [Moles/Vol]138 mmol/W912-384KtysbafiyAdena Pike Medical CenterThyrotropin [Units/volume] in Serum or PlasmaOrdered By: Jesus Gonzalez on 94-21-6963SME Qn3.27 m[IU]/L0.45-5.33A[facility] Medical CenterThyroxine (T4) free [Mass/volume] in Serum or PlasmaOrdered By: Jesus Gonzalez on 82-58-3270Jxsj T4 [Mass/Vol]0.91 ng/dL0.61-1.12A[facility] Medical CenterTriglyceride [Mass/volume] in Serum or PlasmaOrdered By: Jesus Gonzalez on 31-43-1773Wgxamnurhcld [Mass/Vol]223 mg/dL0-149[facility] Comment on above:TRIG ATP III CLASSIFICATIONTRIG less than 150 mg/dL NormalTRIG 150-199 mg/dL Borderline highTRIG 200-500 mg/dL High TRIG greater than 500 mg/dL Very highStandard traceable to the Center for Disease Conrtrol and Prevention (CDC) test method.Urea nitrogen [Mass/volume] in Serum or PlasmaOrdered By: Jesus Gonzalez on 65-37-2690Qggu nitrogen [Mass/Vol]10 mg/dL7-25A[facility]ike Medical CenterWBC Auto (Bld) [#/Vol]Ordered By: Jesus Gonzalez on 24-16-4067FMX (Bld) [#/Vol]9.6 10*3/uL3.8-11.6FMarietta Osteopathic ClinicBasophils Auto (Bld) [#/Vol]Ordered By: Jesus Gonzalez on 84-03-0693Ewrkpfgcl (Bld) [#/Vol]0.1 10*3/uL0.0-0.2FMarietta Osteopathic ClinicBasophils/100 WBC Auto (Bld) Ordered By: Jesus Gonzalez on 94-85-4261Ijrnqbclx/100 WBC (Bld)0.8 %.[facility] Medical CenterEosinophils Auto (Bld) [#/Vol]Ordered By: Jesus Gonzalez on 26-31-2272Oqckzuueijx (Bld) [#/Vol]0.1 10*3/uL0.0-0.45A[facility] Medical CenterEosinophils/100 WBC Auto (Bld)Ordered By: Jesus Gonzalez on 04-15-2023 Eosinophils/100 WBC (Bld)1.3 %.[facility] Medical CenterErythrocyte distribution width Auto (RBC) [Ratio]Ordered By: Jesus Gonzalez on 04-15-2023 Erythrocyte distribution width (RBC) [Ratio]15.8 %11.9-15.3FMarietta Osteopathic ClinicFerritin [Mass/volume] in Serum or PlasmaOrdered By: Jesus Gonzalez on 11-21-2128Gsbumiva [Mass/Vol]5.1 ng/mL11.0-306.8A[facility] Medical CenterHematocrit Auto (Bld) [Volume fraction]Ordered By: Jesus Gonzalez on 37-70-5758Ratvkxzdio (Bld) [Volume fraction]35.0 %34.0-46.4FMarietta Osteopathic ClinicHemoglobin [Mass/volume] in BloodOrdered By: Jesus Gonzalez on 58-89-4658Qrqjavexjj (Bld) [Mass/Vol]11.2 g/dL11.8-15.4FMarietta Osteopathic ClinicIron [Mass/volume] in Serum or PlasmaOrdered By: Jesus Gonzalez on 62-32-7595Dvew [Mass/Vol]18 ug/wX76-272LlfhifxikAdena Pike Medical Center Leukocytes [#/volume] corrected for nucleated erythrocytes in Blood by Automated counOrdered By: Jesus Gonzalez on 15-77-6926FKH corrected for nucl RBC Auto (Bld) [#/Vol]9.6 10*3/uL3.8-11.6FMarietta Osteopathic ClinicLymphocytes Auto (Bld) [#/Vol]Ordered By: Jesus Gonzalez on 72-87-3113Jbfpyzszuwm (Bld) [#/Vol]2.2 10*3/uL1.00-4.8A[facility] Medical CenterLymphocytes/100 WBC Auto (Bld) Ordered By: Jesus Gonzalez on 22-86-9724Xpjwszuflcm/100 WBC (Bld)23.3 %.[facility] Medical CenterMCH Auto (RBC) [Entitic mass]Ordered By: Jesus Gonzalez on 53-91-9154NFZ (RBC) [Entitic mass]26.0 pg24.7-34.3FMarietta Osteopathic ClinicMCHC Auto (RBC) [Mass/Vol]Ordered By: Jesus Gonzalez on 78-76-4710OUQT (RBC) [Mass/Vol]32.0 g/dL32.0-35.0A[facility] Medical CenterMCV Auto (RBC) [Entitic vol]Ordered By: Jesus Gonzalez on 61-03-1279PZC (RBC) [Entitic vol]81.2 fL 80-100A[facility] Medical CenterMonocytes Auto (Bld) [#/Vol]Ordered By: Jesus Gonzalez on 60-32-9183Pzktvcdow (Bld) [#/Vol]0.7 10*3/uL0.0-0.8A[facility] Medical CenterMonocytes/100 WBC Auto (Bld)Ordered By: Jesus Gonzalez on 81-73-8112Pfytpadlq/100 WBC (Bld)7.7 %.[facility] Neutrophils Auto (Bld) [#/Vol]Ordered By: Jesus Gonzalez on 18-99-0028Gplfdrjtoed (Bld) [#/Vol]6.4 10*3/uL1.8-7.7FMarietta Osteopathic ClinicNeutrophils/100 WBC Auto (Bld)Ordered By: Jesus Gonzalez on 83-90-3437Jiffcacxtjn/100 WBC (Bld)66.9 %.[facility] Medical CenterNucleated erythrocytes [Presence] in Blood by Automated countOrdered By: Jesus Gonzalez on 14-40-1631Kwwpnenhn RBC Auto Ql (Bld)0.4 /100{WBC}0-0.5FMarietta Osteopathic ClinicPlatelet mean volume Auto (Bld) [Entitic vol]Ordered By: Jesus Gonzalez on 43-16-7780Xlgmqlkh mean volume (Bld) [Entitic vol]9.1 fL6.3-10.7FMarietta Osteopathic Clinic Platelets Auto (Bld) [#/Vol]Ordered By: Jesus Gonzalez on 41-38-2166Kdhnrmryf (Bld) [#/Vol]427 10*3/wG686-755YsmfhxxoiAdena Pike Medical CenterRBC Auto (Bld) [#/Vol]Ordered By: Jesus Gonzalez on 53-16-2625ALM (Bld) [#/Vol]4.31 10*6/uL 3.60-5.00A[facility] Medical CenterWBC Auto (Bld) [#/Vol]Ordered By: Jesus Gonzalez on 89-19-8640DUW (Bld) [#/Vol]9.6 10*3/uL3.8-11.6FMarietta Osteopathic ClinicBNPon 17-13-2058Zgtaukxqoey peptide B (Bld) [Mass/Vol]173.0 pg/mL Normal<=450.0The [facility]ford HospitalComment on above:Performed By: #### LACT #### [facility] [address] [address] [address] Ko Blas W MANUAL DIFFon 79-49-7873WYNDNKGD LYMPH #0.18 103/ulNormal The [facility] - AkronComment on above:Performed By: #### NICOLETTE #### [facility] [address] [address] [address] Ko GardunoICAL LYMPH %2 %NormalThe Ashford HospitalComment on above: Performed By: #### NICOLETTE #### [facility] [address] [place] [address] Dr. Ko Gould #0.0 103/ulNormal0.0-0.3The [facility] HospitalComment on above:Performed By: #### NICOLETTE #### [facility] [address] [place] [address] Dr. Ko Gould %0 %Normal0-5The [facility] - AkronComment on above:Performed By: #### NICOLETTE #### [facility] [address] [place] [address] Dr. Ko Martinez #0.00 103/ulNormal0.00-0.10The [facility] - AkronComment on above:Performed By: #### NICOLETTE #### [facility] [address] [place] [address] Dr. Ko Martinez %0.0 %Critically low0.2-2.0The [facility] - AkronComment on above:Performed By: #### NIOCLETTE #### [facility] [address] [place] [address] Dr. Ko Whaley #NormalThe [facility]ford HospitalComment on above:Performed By: #### NICOLETTE #### [facility] [address] [place] [address] Dr. Ko StephenBLAST %NormalThe [facility] - AkronComment on above:Performed By: #### CBCCHRISTIANO #### [facility] [address] [address] [address] Ko StephenCORRECTED WBCNormal4.0-11.0[facility] Health CenterComment on above: Performed By: #### CBCCHRISTIANO #### [facility] [address] [address] [address] Ko Kim #0.00 103/ulNormal0.00-0.70The [facility] - AkronComment on above:Performed By: #### NICOLETTE #### [facility] [address] [address] [address] Ko Kim%0.0 %Critically low0.9-7.0The [facility] - AkronComment on above:Performed By: #### NICOLETTE #### [facility] [address] [place] [address] Dr. Ko StephenHCT32.8 %Critically low36.0-48.0The [facility] - AkronComment on above:Performed By: #### NICOLETTE #### [facility] [address] [place] [address] Dr. Ko StephenHGB11.1 g/dlCritically low12.0-16.0The [facility] - AkronComment on above:Performed By: #### CBCCHRISTIANO #### [facility] [address] [address] [address] Ko Palacios #0.18 103/ulCritically low1.20-3.80The [facility] Comment on above:Performed By: #### CBCCHRISTIANO #### [facility] [address] [address] [address] Ko Palacios%2.0 %Critically low20.5-60.0The [facility] - AkronComment on above:Performed By: #### CBCCHRISTIANO #### [facility] [address] [place] [address] Dr. Ko StephenMCH27.7 ehLctjsg66.7-34.0The [facility] - AkronComment on above: Performed By: #### NICOLETTE #### [facility] [address] [address] [address] Ko TinocoHC33.8 g/tuJalsqh35.9-35.2The [facility] - AkronComment on above:Performed By: #### NICOLETTE #### [facility] [address] [address] [address] Ko TinocoV81.8 fPFzqtod81.0-99.0The [facility] - AkronComment on above: Performed By: #### NICOLETTE #### [facility] [address] [address] [address] Ko Wells #NormalThe [facility] Hospital - AkronComment on above: Performed By: #### NICLOETTE #### [facility] [address] [place] [address] Dr. oK Wells %NormalThe [facility] - AkronComment on above: Performed By: #### NICOLETTE #### [facility] [address] [place] [address] Dr. Ko Connolly#0.09 103/ulCritically low0.30-0.80The [facility] on above:Performed By: #### NICOLETTE #### [facility] [address] [place] [address] Dr. Ko Connolly%1.0 %Critically low1.7-12.0The [facility] - AkronComment on above:Performed By: #### NICOLETTE #### [facility] [address] [place] [address] Dr. Ko Silverman9.8 fLNormal9.5-13.5The [facility] - AkronComment on above: Performed By: #### NICOLETTE #### [facility] [address] [place] [address] Dr. Ko Meadows #NormalThe [facility] - AkronComment on above:Performed By: #### NICOLETET #### [facility] [address] [place] [address] Dr. Ko Meadows %NormalThe [facility] - AkronComment on above:Performed By: #### NICOLETTE #### [facility] [address] [address] [address] Ko CarneyNoalThe [facility] - AkronComment on above:Performed By: #### NICOLETTE #### [facility] [address] [address] [address] Ko StephenPLT375 103/ilNatmlv458-024Gqm [facility] - AkronComment on above: Performed By: #### NICOLETTE #### [facility] [address] [address] [address] Ko StephenRBC4.01 106/ulCritically low4.20-5.40The [facility] - AkronComment on above:Performed By: #### NICOLETTE #### [facility] [address] [place] [address] Dr. Ko StephenRDW13.5 %Wzaxzs02.0-15.0The [facility] - AkronComment on above: Performed By: #### NICOLETTE #### [facility] [address] [place] [address] Dr. Ko Sepulveda #8.55 103/ulCritically high1.40-6.50The [facility] Comment on above:Performed By: #### NICOLETTE #### [facility] [address] [place] [address] Dr. Ko Sepulveda %95.0 %Critically high43.0-75.0The [facility] - AkronComment on above:Performed By: #### NICOLETTE #### [facility] [address] [place] [address] Dr. Ko BrittonBC9.0 103/ulNormal4.0-11.0The [facility] - AkronComment on above: Performed By: #### NICOLETTE #### [facility] [address] [place] [address] Dr. Ko [facility] GLUCOSEon 25-44-6243Dkrgwwd [Mass/Vol]98 mg/dL Dkxdde20-331Ohn [facility] AkronComment on above:Performed By: #### LACT #### [facility] [address] [address] [address] Ko StephenGlucose [Mass/Vol]158 mg/dLCritically fkez85-880Umb [facility] AkronComment on above:Performed By: #### POCGLUC #### [facility] [address] [place] [address] Dr. Ko StephenPROF 14(COMP METB)on 27-13-0218Pmapydk [Mass/Vol]3.7 g/dLNormal 3.4-5.0The [facility] AkronComment on above:Performed By: #### LACT #### [facility] [address] [place] [address] Dr. Ko StephenAlbumin/Globulin [Mass ratio]1.2 {ratio}NormalThe [facility] - AkronComment on above:Performed By: #### LACT #### [facility] [address] [place] [address] Dr. Ko GarcesP [Catalytic activity/Vol]42 U/LCritically hqt40-650Zfj [facility] AkronComment on above:Performed By: #### LACT #### [facility] [address] [place] [address] Dr. Ko GarcesT [Catalytic activity/Vol]30 U/TQzpmpc35-94Bpg [facility] AkronComment on above:Performed By: #### LACT #### [facility] [address] [place] [address] Dr. Ko Gatica gap [Moles/Vol]17.1 mmol/LNormalThe [facility] Comment on above:Performed By: #### LACT #### [facility] [address] [place] [address] Dr. Ko StephenAST [Catalytic activity/Vol]15 U/OOofsqq66-55Spj [facility] AkronComment on above:Performed By: #### LACT #### [facility] [address] [place] [address] Dr. Ko StephenBilirubin [Mass/Vol]0.2 mg/dLNormal0.2-1.0The [facility] Comment on above:Performed By: #### LACT #### [facility] [address] [address] [address] Ko StephenCalcium [Mass/Vol]9.6 mg/dLNormal8.5-10.1The [facility] Comment on above:Performed By: #### LACT #### [facility] [address] [address] [address] Ko StephenChloride [Moles/Vol]100 mmol/PGaftxv14-950Euv [facility] Comment on above:Performed By: #### LACT #### [facility] [address] [place] [address] Dr. Ko StephenCO2 [Moles/Vol]22.3 mmol/DAtwsgs81.0-32.0The [facility] Comment on above:Performed By: #### LACT #### [facility] [address] [place] [address] Dr. Ko StephenCreatinine [Mass/Vol]1.10 mg/dLCritically high0.55-1.02The [facility] AkronComment on above:Performed By: #### LACT #### [facility] [address] [place] [address] Dr. Ko HopsonGFR-AF LITHUANIAN>60Normal>=60The [facility] AkronComment on above:Performed By: #### LACT #### [facility] [address] [place] [address] Dr. Ko HopsonGFR-NON AF TIOAWAQT25 mL/min/1.04e6Jbnfvngbpc low>=60The [facility] AkronComment on above:Performed By: #### LACT #### [facility] [address] [place] [address] Dr. oK StephenGlobulin (S) [Mass/Vol]3.1 g/dLNormalThe [facility] AkronComment on above:Performed By: #### LACT #### [facility] [address] [place] [address] Dr. Ko StephenGlucose [Mass/Vol]180 mg/dLCritically lsrd12-814Lhg [facility] AkronComment on above:Performed By: #### LACT #### [facility] [address] [place] [address] Dr. Ko Vanessaassium [Moles/Vol]3.4 mmol/LCritically low3.5-5.1The [facility] AkronComment on above:Performed By: #### LACT #### [facility] [address] [place] [address] Dr. Ko StephenProtein [Mass/Vol]6.8 g/dLNormal6.4-8.2The [facility] Comment on above:Performed By: #### LACT #### [facility] [address] [address] [address] Ko StephenSodium [Moles/Vol]136 mmol/QMehbby821-105Lqi [facility] Comment on above:Performed By: #### LACT #### [facility] [address] [place] [address] Dr. Ko Villalba nitrogen [Mass/Vol]19.0 mg/dLCritically high7.0-18.0The [facility] AkronComment on above:Performed By: #### LACT #### [facility] [address] [place] [address] Dr. Ko Villalba nitrogen/Creatinine [Mass ratio]17.3 mg/mgNormalThe [facility] AkronComment on above:Performed By: #### LACT #### [facility] [address] [place] [address] Dr. Ko Jean 96-07-5440Tvlzyjdcqay peptide B (Bld) [Mass/Vol]291.0 pg/mL Normal<=450.0The [facility] AkronComment on above:Performed By: #### CMP, CMADM, BNP #### [facility] [address] [address] [address] Ko Vann PERRY ADMITon 28-66-7925UY [Catalytic activity/Vol]286 U/L Critically ezue11-749Ltf [facility] AkronComment on above:Performed By: #### CMP, CMADM, BNP #### [facility] [address] [place] [address] Dr. Ko Olivares.MB [Mass/Vol]4.51 ng/mLCritically high<=3.60Ohio[facility] Nelsonville Health CenterComment on above:Performed By: #### CMP, CMADM, BNP #### [facility] [address] [place] [address] Dr. Ko StephenHSTROP5.0 pg/mLNormal4.0-51.3The [facility] AkronComment on above:Result Comment: CUT-OFF POINTS HAVE BEEN ESTABLISHED BASED ON THE FOURTH UNIVERSAL DEFINITIONS OF MYOCARDIAL INFARCTION. THE UPPER REFERENCE LIMIT (URL) OF TROPONIN, DEFINED THE 99TH PERCENTILE OF cTnI DISTRIBUTION IN A REFERENCE POPULATION, HAS BEEN CONFIRMED THE DECISION THRESHOLD FOR PA DIAGNOSIS.Performed By: #### CMP, CMADM, BNP #### [facility] [address] [place] [address] Dr. Ko JohnsO184 ng/mLCritically high9-82St. [facility] Hospitalment on above:Performed By: #### CMP, CMADM, BNP #### [facility] [address] [place] [address] Dr. Ko Blas AUTO DIFFon 41-41-0588OBVQ #0.0 103/ulNormal0.0-0.1The [facility]ronComment on above:Performed By: #### CBC #### [facility] [address] [place] [address] Dr. Ko StephenBasophils/100 WBC (Bld)0.2 %Normal0.2-2.0[facility] Comment on above:Performed By: #### CBC #### [facility] [address] [place] [address] Dr. Ko Noble #0.0 103/ulNormal0.0-0.7The [facility]ronComment on above: Performed By: #### CBC #### [facility] [address] [place] [address] Dr. Ko Hopsonosinophils/100 WBC (Bld)0.0 %Critically low0.9-7.0The [facility] AkronComment on above:Performed By: #### CBC #### [facility] [address] [place] [address] Dr. Ko Hopsonrythrocyte distribution width (RBC) [Ratio]13.7 %Duyshn57.0-15.0 [facility]ment on above:Performed By: #### CBC #### [facility] [address] [place] [address] Dr. Ko StephenHematocrit (Bld) [Volume fraction]31.8 %Critically low36.0-48.0 The [facility] AkronComment on above:Performed By: #### CBC #### [facility] [address] [place] [address] Dr. Ko StephenHemoglobin (Bld) [Mass/Vol]11.1 g/dLCritically low12.0-16.0The [facility]ronComment on above:Performed By: #### CBC #### [facility] [address] [place] [address] Dr. Ko Mendoza #0.11 10e3/ulCritically high0.00-0.03The [facility] Comment on above:Performed By: #### CBC #### [facility] [address] [place] [address] Dr. Ko StephenIG %1.0 %Critically high0.0-0.5ThMemorial Health System Selby General HospitalComment on above:Performed By: #### CBC #### [facility] [address] [place] [address] Dr. Ko Chavira #1.8 103/ulNormal1.2-3.8The [facility]ronComment on above:Performed By: #### CBC #### [facility] [address] [place] [address] Dr. Ko Terrellhocytes/100 WBC (Bld)16.2 %Critically low20.5-60.0[facility]ment on above:Performed By: #### CBC #### [facility] [address] [place] [address] Dr. Ko GilesUAL DIFF REQNONormalThe [facility] AkronComment on above: Performed By: #### CBC #### [facility] [address] [place] [address] Dr. Ko Arango (RBC) [Entitic mass]28.2 vtWgvnup62.7-34.0The [facility] AkronComment on above:Performed By: #### CBC #### [facility] [address] [place] [address] Dr. Ko Tinoco (RBC) [Mass/Vol]34.9 g/bXCwwmwz48.9-35.2The [facility] AkronComment on above:Performed By: #### CBC #### [facility] [address] [place] [address] Dr. Ko Tinoco (RBC) [Entitic vol]80.7 fLCritically low81.0-99.0The [facility] AkronComment on above:Performed By: #### CBC #### [facility] [address] [place] [address] Dr. Ko Paredes #0.7 103/ulNormal0.3-0.8The [facility] AkronComment on above:Performed By: #### CBC #### [facility] [address] [place] [address] Dr. Ko Rennerocytes/100 WBC (Bld)6.3 %Normal1.7-12.0[facility] Comment on above:Performed By: #### CBC #### [facility] [address] [place] [address] Dr. Ko Hwang #8.4 103/ulCritically high1.4-6.5The [facility] Comment on above:Performed By: #### CBC #### [facility] [address] [place] [address] Dr. Ko Hernandezutrophils/100 WBC (Bld)76.3 %Critically high43.0-75.0The [facility] AkronComment on above:Performed By: #### CBC #### [facility] [address] [place] [address] Dr. Ko Kinseylet mean volume (Bld) [Entitic vol]9.5 fLNormal9.5-13.5The [facility] AkronComment on above:Performed By: #### CBC #### [facility] [address] [place] [address] Dr. Ko StephenPLT384 103/ydKzvlbj654-688Ksi [facility] AkronComment on above: Performed By: #### CBC #### [facility] [address] [place] [address] Dr. Ko StephenRBC3.94 106/ulCritically low4.20-5.40The [facility] AkronComment on above:Performed By: #### CBC #### [facility] [address] [place] [address] Dr. Ko StephenWBC11.0 103/ulNormal4.0-11.0The [facility] AkronComment on above:Performed By: #### CBC #### [facility] [address] [place] [address] Dr. Ko StephenCULTSCARLET URINEon 20-04-4856RJOUZWY URINECulture Observations: NO GROWTH.NormalThe [facility] AkronComment on above:Performed By: #### URCX #### [facility] [address] [place] [address] Dr. Ko StephenCocristal-19 PCR ([facility]VDHOMBERG [facility])on 03-98-9862WKRT-CoV-2 (COVID-19) RNA RADHA+probe Ql (Unsp spec)Not detectedNormalNOT DETECTEDThe [facility] Comment on above:Result Comment: When diagnostic testing is negative, the [...] for this test is supported by the [place] of Health and Human Service's declaration that circumstances exist to justify the emergency use of in vitro diagnostics for the detection and/or diagnosis of the virus that causes COVID-19. This EUA will remain in effect for the duration of the COVID-19 declaration justifying emergency of IVDs, unless it is terminated or revoked by the FDA (after which the test may no longer be used).Performed By: #### CVDTBH #### [facility] [address] [place] [address] Dr. Ko StephenLACTATE/LACTIC ACIDon 53-24-3173Hbpxqmz [Moles/Vol]1.7 mmol/L Normal0.4-1.9The [facility] AkronComment on above:Performed By: #### LACT #### [facility] [address] [place] [address] Dr. Ko StephenPOINT OF CARE GLUCOSEon 32-71-9457Hmuimhl [Mass/Vol]139 mg/dL Critically dtqz86-235Dpf [facility]ronComment on above:Performed By: #### POCGLUC #### [facility] [address] [place] [address] Dr. Ko StephenGlucose [Mass/Vol]99 mg/lNDmqlhg53-328Ulp [facility] Comment on above:Performed By: #### LACT #### [facility] [address] [place] [address] Dr. Ko StephenPROF 14(COMP METB)on 53-08-4775Xfwrvkm [Mass/Vol]3.9 g/dLNormal 3.4-5.0The [facility]ronComment on above:Performed By: #### CMP, CMADM, BNP #### [facility] [address] [place] [address] Dr. Ko StephenAlbumin/Globulin [Mass ratio]1.3 {ratio}NormalThe [facility] AkronComment on above:Performed By: #### CMP, CMADM, BNP #### [facility] [address] [place] [address] Dr. Ko GarcesP [Catalytic activity/Vol]43 U/LCritically bgd75-190Rwz [facility]ronComment on above:Performed By: #### CMP, CMADM, BNP #### [facility] [address] [place] [address] Dr. Ko GarcesT [Catalytic activity/Vol]34 U/PGxvlyr99-00Glw Julio C HospitalComment on above:Performed By: #### CMP, CMADM, BNP #### [facility] [address] [address] [address] Ko Alvarezon gap [Moles/Vol]16.2 mmol/LNormalThe [facility] Comment on above:Performed By: #### CMP, CMADM, BNP #### [facility] [address] [address] [address] Ko StephenAST [Catalytic activity/Vol]18 U/VVrzukm66-26Mql [facility]ronComment on above:Performed By: #### CMP, CMADM, BNP #### [facility] [address] [address] [address] Ko StephenBilirubin [Mass/Vol]0.2 mg/dLNormal0.2-1.0[facility] Comment on above:Performed By: #### CMP, CMADM, BNP #### [facility] [address] [address] [address] Ko StephenCalcium [Mass/Vol]9.4 mg/dLNormal8.5-10.1[facility] Comment on above:Performed By: #### CMP, CMADM, BNP #### [facility] [address] [place] [address] Dr. Ko StephenChloride [Moles/Vol]99 mmol/BGgxigm14-885HqiOhiohealth [facility] Center Comment on above:Performed By: #### CMP, CMADM, BNP #### [facility] [address] [address] [address] Ko StephenCO2 [Moles/Vol]25.7 mmol/EWcnmgl03.0-32.0The [facility] Comment on above:Performed By: #### CMP, CMADM, BNP #### [facility] [address] [place] [address] Dr. Ko StephenCreatinine [Mass/Vol]1.10 mg/dLCritically high0.55-1.02The [facility]ronComment on above:Performed By: #### CMP, CMADM, BNP #### [facility] [address] [place], [place] [address] Dr. Ko HopsonGFR-AF LITHUANIAN>60Normal>=60The [facility] AkronComment on above:Performed By: #### CMP, CMADM, BNP #### [facility] [address] [address] [address] Ko HopsonGFR-NON AF CFCMLYLL06 mL/min/1.17v8Ytcdkktvup low>=60The [facility]ronComment on above:Performed By: #### CMP, CMADM, BNP #### [facility] [address] [place] [address] Dr. Ko StephenGlobulin (S) [Mass/Vol]2.9 g/dLNormalThe [facility]ronComment on above:Performed By: #### CMP, CMADM, BNP #### [facility] [address] [place] [address] Dr. Ko StephenGlucose [Mass/Vol]97 mg/ySCzbumw62-211RkrOhiohealth [facility] Center Comment on above:Performed By: #### CMP, CMADM, BNP #### [facility] [address] [place] [address] Dr. Ko StephenPotassium [Moles/Vol]3.9 mmol/LNormal3.5-5.1The [facility] Comment on above:Performed By: #### CMP, CMADM, BNP #### [facility] [address] [place] [address] Dr. Ko StephenProtein [Mass/Vol]6.8 g/dLNormal6.4-8.2The [facility] Comment on above:Performed By: #### CMP, CMADM, BNP #### [facility] [address] [place] [address] Dr. Ko StephenSodium [Moles/Vol]137 mmol/MTzhvcb950-935Aed [facility] Comment on above:Performed By: #### CMP, CMADM, BNP #### [facility] [address] [place] [address] Dr. Ko StephenUrea nitrogen [Mass/Vol]16.0 mg/dLNormal7.0-18.0The [facility]ford HospitalComment on above:Performed By: #### CMP, CMADM, BNP #### [facility] [address] [address] [address] Ko StephenUrea nitrogen/Creatinine [Mass ratio]14.5 mg/mgNoalThMemorial Health System Selby General HospitalComascension [facility]idence [facility] on above:Performed By: #### CMP, CMADM, BNP #### [facility] [address] [address] [address] Ko Meadows RANDOM W/MICROSCOPICon 71-89-1898YSCTVWMWKRWH SEENNormalNONE SEENProvidence Hospital on above:Performed By: #### LACT #### [facility] [address] [address] [address] Ko Suárez Ql (U)NegativeNormalNEGATIVEOhiohealth [facility]ville Health Center Comment on above:Performed By: #### LACT #### [facility] [address] [address] [address] Ko Carney SEENNormalNONE SEENProvidence Hospital on above:Performed By: #### LACT #### [facility] [address] [address] [address] Ko Aiken (U)CLEARNormalCLEARProvidence Hospital on above: Performed By: #### LACT #### [facility] [address] [address] [address] Ko Jaramillo (U)LT. YELLOWNormalYELLOWProvidence Hospital on above:Performed By: #### LACT #### [facility] [address] [address] [address] Ko Irvin LM Nom (Urine sed)NONE SEENNormalNONE SEENProvidence Hospital on above:Performed By: #### LACT #### [facility] [address] [address] [address] Connell ChangEpithelial cells LM Ql (Urine sed)NONE SEENNormalNONE SEEN /RARE [facility] on above:Performed By: #### LACT #### [facility] [address] [address] [address] Ko StephenGlucose Ql (U)500 mg/dlAbnormalNEGKing's Daughters Medical Center [place] Comment on above:Performed By: #### LACT #### [facility] [address] [address] [address] Ko StephenHemoglobin Ql (U)TRACE-INTACTAbnormalNEGATIVEOhiohealth Nelsonville Health CenterComment on above:Performed By: #### LACT #### [facility] [address] [address] [address] Ko StephenKetones Ql (U)NegativeNormalNEGATIVEOhiohealth Nelsonville Health CenterComment on above:Performed By: #### LACT #### [facility] [address] [place] [address] Dr. Ko StephenLEUKOCYTESNegativeNormalNEGATIVEOhiohealth Nelsonville Health CenterComment on above:Performed By: #### LACT #### [facility] [address] [place] [address] Dr. Ko StephenMUCOUSNONE SEENNormalNONE SEENOhiohealth Nelsonville Health CenterComment on above:Performed By: #### LACT #### [facility] [address] [address] [address] Ko Haddadtrite Ql (U)NegativeNormalNEGATIVEOhiohealth Nelsonville Health CenterComment on above:Performed By: #### LACT #### [facility] [address] [place] [address] Dr. Ko StephenpH (U)5.5 [pH]Normal5-9[facility] Health CenterComment on above: Performed By: #### LACT #### [facility] [address] [address] [address] Ko StephenJrvsfWZG1-0Eavjta0-8Pmm Bellevue HospitalComment on above:Performed By: #### LACT #### [facility] [address] [place] [address] Dr. Ko StephenSPEC GRAVITY<=1.964Zlqulqss6.005-<=1.025[facility] Comment on above:Performed By: #### LACT #### [facility] [address] [address] [address] Ko Meadows PROTEINNegativeNormalNEGATIVE/ TRACEThe [facility] Comment on above:Performed By: #### LACT #### [facility] [address] [address] [address] Ko Bensonbilinogen Qn (U)0.2 {Rich'U}/dLNormal0.2 - 1.0The [facility] AkronComment on above:Performed By: #### LACT #### [facility] [address] [address] [address] Ko StephenWBCNONJason SEENNormalNONE SEENThe [facility] AkronComment on above: Performed By: #### LACT #### [facility] [address] [address] [address] Ko StephenXR CHEST 2 Von 28-12-3584KA CHEST 2 VEXAMINATION: XR CHEST 2 V HISTORY: Shortness of breath COMPARISON: Chest x-rays 11/14/2019 TECHNIQUE: PA and lateral chest x-rays FINDINGS: The lung parenchyma is free of consolidation or infiltrate. No pneumothorax or pleural effusion. The cardiac, mediastinal and hilar contours are normal. The visualized osseous structures exhibit no gross abnormality. IMPRESSION: No acute cardiopulmonary abnormality. Electronically authenticated by: LIAT MARISCAL Date: 2022-10-10 17:23[facility] HospitalXR wrist RT min 3V*on 73-38-4531UF wrist RT min 3V*[facility] [employer] Other XR wrist RT min 3V*[facility] [employer] Other XR wrist RT min 3V*[facility] [employer] Other XR wrist RT min 3V*[place] [address]Mtrhk [employer] Other XR wrist RT min 3V*XRay [facility] [employer] Other XR wrist RT min 3V*[facility] [employer] Other XR wrist RT min 3V*Patient: Kourtney Novak MR#: [id number] [employer] Other XR wrist RT min 3V*[id number] [employer] Other XR wrist RT min 3V*: 1975 Acct:[id number] [place] [employer] Other XR wrist RT min 3V*Age/Sex: 46 / F ADM Date: 09/24/22 [employer] Other XR wrist RT min 3V*[place] [facility] [place]: Type: [facility] [employer] Other XR wrist RT min 3V*Attending Dr: Elyssa Gomes MD [employer] Other XR wrist RT min 3V*Copies to: Elyssa Gomes MD [employer] Other XR wrist RT min 3V*Ordering Provider: Elyssa Gomes MDWashington [employer] Other XR wrist RT min 3V*Date of Service: 09/24/22[place] [employer] Other XR wrist RT min 3V* XR/XR wrist RT min 3V*: Osteochondrosis of lunate of right wristWashington [employer] Other XR wrist RT min 3V*RIGHT WRIST - 4 viewsWashington [employer] Other XR wrist RT min 3V*CLINICAL HISTORY: Follow-up right wrist denervation and radial core decompressionWashington [employer] Other XR wrist RT min 3V*[facility]: [facility] [employer] Other XR wrist RT min 3V*FINDINGS:[employer] Other XR wrist RT min 3V*No focal soft tissue abnormality. 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 Triquetral fracture is unchanged. Mild degenerative changes without bony erosion.[employer] Other XR wrist RT min 3V* XR/XR wrist RT min 3V*[employer] Other XR wrist RT min 3V*IMPRESSION:[employer] Other XR wrist RT min 3V*NO SIGNIFICANT CHANGE IN WRIST FINDINGS.[employer] Other XR wrist RT min 3V*Impression dictated by: Rainer Martinez Jr., D.O.09/24/2022 4:36 PMNsullivan county memorial hospital [employer] Other XR wrist RT min 3V*Dictation Location: [place] [address] [employer] Other XR wrist RT min 3V*Transcribed By: PWS 09/24/22 [facility] [employer] Other XR wrist RT min 3V*Dictated By: Rainer Martinez Jr, DO 09/24/[address] [place], [place] [address] Other XR wrist RT min 3V*Signed By:[employer] Other XR wrist RT min 3V*09/24/22 [facility] SystemsCiRBA Other Urine culture routineOrdered By: Jesus Gonzalez on 33-28-8505Ybyjcwjl identified Cx Nom (U)2 DaysAdena Pike Medical Center Automated erythrocytes count in urine sediment (number/area)Ordered By: Jesus Gonzalez on 38-54-2370ZPG Auto (Urine sed) [#/Area]3-4 [HPF]0-4FMarietta Osteopathic ClinicAutomated leukocytes count in urine sediment (number/area)Ordered By: Jesus Gonzalez on 61-20-5828SBT Auto (Urine sed) [#/Area]None seen [HPF]0-4 [facility] Medical CenterBilirubin Test strip Ql (U)Ordered By: Jesus Gonzalez on 95-01-9596Gowutlkwb Ql (U)NegativeNegativeAdena Pike Medical CenterColor Auto (U)Ordered By: Jesus Gonzalez on 49-59-7674Jimmn (U)YellowYellow [facility] Medical CenterKetones Auto test strip (U) [Mass/Vol]Ordered By: Jesus Gonzalez on 93-43-9178Naeeduo (U) [Mass/Vol]NegativeNegativeAdena Pike Medical CenterLaboratory - UrinalysisOrdered By: Jesus Gonzalez on 82-29-2919Tckhxar casts LM Ql (Urine sed)None seen [LPF]0-8A[facility] Medical CenterNitrite Test strip Ql (U)Ordered By: Jesus Gonzalez on 07-29-2022 Nitrite Ql (U)NegativeNegCincinnati Children's Hospital Medical CenterProtein Auto test strip (U) [Mass/Vol]Ordered By: Jesus Gonzalez on 57-76-0456Libipol (U) [Mass/Vol] NegativeNegOhioHealth Marion General Hospitalpecific gravity Auto test strip (U) [Rel density]Ordered By: Jesus Gonzalez on 29-86-8529Uiefxdkr gravity (U) [Rel density]1.0131.001-1.030Ohio[facility]in Memorial Hospitalquamous epithelial cells detection in urine sediment by light microscopyOrdered By: Jesus Gonzalez on 79-54-7576Qrgaikfdfs cells.squamous LM Ql (Urine sed)None seen [HPF]0-2FMarietta Osteopathic ClinicUrine bacteria detection by automated methodOrdered By: Jesus Gonzalez on 32-48-7419Zpmgqlek Auto Ql (U)None seenNone SeenAdena Pike Medical CenterUrine clarity by refractometry automated Ordered By: Jesus Gonzalez on 59-82-7392Svgivhz Refractometry automated (U)Clear ClearAdena Pike Medical CenterUrine culture routineOrdered By: Jesus Gonzalez on 16-85-4969Uorydkyb identified Cx Nom (U)2 DaysAdena Pike Medical CenterUrine glucose measurement by automated test strip (mass/volume)Ordered By: Jesus Gonzalez on 27-16-2535Xhoivcj Auto test strip (U) [Mass/Vol]>=1000 mg/dL NormalAdena Pike Medical CenterUrine hemoglobin detection by automated test stripOrdered By: Jesus Gonzalez on 13-43-8643Nqesvrfpdj Auto test strip Ql (U) TraceNegCincinnati Children's Hospital Medical CenterUrine leukocyte esterase detection by automated test stripOrdered By: Jesus Gonzalez on 25-25-0549Motcpuznp esterase Auto test strip Ql (U)NegativeNegativeAdena Pike Medical Center Urobilinogen Auto test strip (U) [Mass/Vol]Ordered By: Jesus Gonzalez on 07-29-2022 Urobilinogen (U) [Mass/Vol]Normal mg/dLNormalAdena Pike Medical CenterpH Auto test strip (U)Ordered By: Jesus Gonzalez on 35-21-4055pV (U)6.0 [pH]5.0-9.0 [facility] Medical CenterAlbumin [Mass/volume] in Serum or PlasmaOrdered By: Jesus Gonzalez on 26-46-7912Klkpimp [Mass/Vol]4.0 g/dL3.2-5.5FMarietta Osteopathic ClinicBasophils Auto (Bld) [#/Vol]Ordered By: Jesus Gonzalez on 58-55-4504Cyzvkhhlk (Bld) [#/Vol]0.0 10*3/uL0.0-0.2FMarietta Osteopathic ClinicBasophils/100 WBC Auto (Bld)Ordered By: Jesus Gonzalez on 05-01-2022 Basophils/100 WBC (Bld)0.8 %.A[facility] Medical CenterBlood hemoglobin measurement (mass/volume)Ordered By: Jesus Gonzalez on 61-66-9905Rfksndgaio (Bld) [Mass/Vol]12.4 g/dL11.8-15.4FMarietta Osteopathic ClinicBlood leukocytes automated count (number/volume)Ordered By: Jesus Gonzalez on 72-33-9516YMQ (Bld) [#/Vol]6.0 10*3/uL4.5-11.0A[facility] Medical CenterCholesterol [Mass/volume] in Serum or PlasmaOrdered By: Jesus Gonzalez on 01-30-2675Ghewjdsevdt [Mass/Vol]189 mg/dS478-525FqymsqqxtAdena Pike Medical CenterComment on above: Chol less than 200 mg/dl low risk Chol 201-239 mg/dl borderline risk Chol 240 mg/dl and greater high riskChol less than 200 mg/dl low riskChol 201- 239 mg/dl borderline riskChol 240 mg/dl and greater high riskCholesterol in LDL Calc [Mass/Vol]Ordered By: Jesus Gonzalez on 10-11-5477Tzkkbfycvem in LDL [Mass/Vol]92 mg/dL0-100A[facility] Pike Medical CenterComment on above:LDL ATP III CLASSIFICATION LDL less than 100 mg/dL Optimal LDL 100-129 mg/dL Near or above optimal LDL 130-159 mg/dL Borderline high LDL 160-189 mg/dL High LDL greater than 189 mg/dL Very highLDL ATP III CLASSIFICATIONLDL less than 100 mg/dL OptimalLDL 100-129 mg/dL Near or above dbqxlfsFIG472-870 mg/dL Borderline highLDL 160-189 mg/dL HighLDL greater than 189 mg/dL Very highCholesterol in VLDL Calc [Mass/Vol]Ordered By: Jesus Gonzalez on 13-78-7226Czzpgqglzdq in VLDL [Mass/Vol]19 mg/dLAdena Pike Medical CenterCreatinine and Glomerular filtration rate.predicted panel (S/P/Bld)Ordered By: Jesus Gonzalez on 05-01-2022 Creatinine [Mass/Vol]1.06 mg/dL0.44-1.03[facility] Eosinophils Auto (Bld) [#/Vol]Ordered By: Jesus Gonzalez on 35-63-4479Peshdkzxtrt (Bld) [#/Vol]0.1 10*3/uL0.0-0.45[facility] Medical CenterEosinophils/100 WBC Auto (Bld)Ordered By: Jesus Gonzalez on 60-67-6137Qefmfgauxxe/100 WBC (Bld)1.2 %.[facility] Medical CenterErythrocyte distribution width Auto (RBC) [Ratio]Ordered By: Jesus Gonzalez on 61-51-8190Fxyhhxclgvs distribution width (RBC) [Ratio]13.7 %11.9-15.3FMarietta Osteopathic ClinicEstimated glomerular filtration rate (GFR) non- AmericanOrdered By: Jesus Gonzalez on 05-01-2022 GFR/1.73 sq M.predicted among non-blacks MDRD (S/P/Bld) [Vol rate/Area]56 mL/Min [facility] Medical CenterGlobulin Calc (S) [Mass/Vol]Ordered By: Jesus Gonzalez on 00-52-6120Ajhqetaq (S) [Mass/Vol]2.3 g/dLAdena Pike Medical CenterGlucose mean value [Mass/volume] in Blood Estimated from glycated hemoglobinOrdered By: Jesus Gonzalez on 49-57-0405Isbyqij glucose Estimated from glycated hemoglobin (Bld) [Mass/Vol]117 mg/dLAdena Pike Medical Center Hematocrit Auto (Bld) [Volume fraction]Ordered By: Jesus Gonzalez on 05-01-2022 Hematocrit (Bld) [Volume fraction]38.4 %34.0-46.4FMarietta Osteopathic ClinicHemoglobin A1c percentageOrdered By: Jesus Gonzalez on 00-90-5865YwD8v (Bld) [Mass fraction]5.7 %4.3-5.6FMarietta Osteopathic ClinicComment on above: Increased risk for diabetes: 5.7 - 6.4 diabetes: >6.4 glycemic control for adults with diabetes: <7.0Increased risk for diabetes: 5.7 - 6.4diabetes: >6.4glycemic control for adults with diabetes: <7.0Iron [Mass/volume] in Serum or PlasmaOrdered By: Jesus Gonzalez on 99-09-8307Bxge [Mass/Vol]48 ug/lS53-397IqtygikurAdena Pike Medical CenterLaboratory - Chemistry and Chemistry - challengeOrdered By: Jesus Gonzalez on 23-55-4055Rhloodwunxf peptide B (Bld) [Mass/Vol]7.0 pg/mL5-100[facility] Laboratory - Hematology and Cell countsOrdered By: Jesus Gonzalez on 05-01-2022 Nucleated RBC/100 WBC (Bld) [Ratio]0.0 %0-0.5FMarietta Osteopathic Clinic Lymphocytes Auto (Bld) [#/Vol]Ordered By: Jesus Gonzalez on 57-18-0784Rmvhdjanqqg (Bld) [#/Vol]1.4 10*3/uL1.00-4.8A[facility] Medical CenterLymphocytes/100 WBC Auto (Bld)Ordered By: Jesus Gonzalez on 92-16-8800Ixifuvikayv/100 WBC (Bld) 23.0 %.[facility] HospitalH Auto (RBC) [Entitic mass]Ordered By: Jesus Gonzalez on 71-25-2615IMK (RBC) [Entitic mass]28.9 pg24.7-34.3FMarietta Osteopathic ClinicMCHC Auto (RBC) [Mass/Vol]Ordered By: Jesus Gonzalez on 93-97-0485GWWT (RBC) [Mass/Vol]32.4 g/dL32.0-35.0[facility] Medical CenterMCV Auto (RBC) [Entitic vol]Ordered By: Jesus Gonzalez on 93-64-3842RDR (RBC) [Entitic vol]89.1 sG45-400CeblaltlmAdena Pike Medical CenterMonocytes Auto (Bld) [#/Vol]Ordered By: Jesus Gonzalez on 09-90-6994Dbxliybji (Bld) [#/Vol]0.6 10*3/uL 0.0-0.8[facility] Medical CenterMonocytes/100 WBC Auto (Bld)Ordered By: Jesus Gonzalez on 82-31-3224Wvtclidoc/100 WBC (Bld)9.1 %.[facility] Medical CenterNeutrophils Auto (Bld) [#/Vol]Ordered By: Jesus Gonzalez on 05-01-2022 Neutrophils (Bld) [#/Vol]4.0 10*3/uL1.8-7.7FMarietta Osteopathic Clinic Neutrophils/100 WBC Auto (Bld)Ordered By: Jesus Gonzalez on 05-01-2022 Neutrophils/100 WBC (Bld)65.9 %.[facility] Medical CenterNo Panel InformationOrdered By: Jesus Gonzalez on 75-13-3192Dokjpwoid GFR () > 60 mL/MinAdena Pike Medical CenterComment on above:GFR estimated reference range: According to KDOQI guidelines, <60 ml/min/1.73m2 is sufficient todiagnose a patient with chronic kidney disease.Pharmacy Creatinine Clearance (ChemN/[facility] - DublinPlatelet mean volume Auto (Bld) [Entitic vol]Ordered By: Jesus Gonzalez on 67-73-1594Pkxwvtkc mean volume (Bld) [Entitic vol]8.5 fL6.3-10.7FMarietta Osteopathic ClinicPlatelets Auto (Bld) [#/Vol]Ordered By: Jesus Gonzalez on 74-20-2304Euildrxor (Bld) [#/Vol]385 10*3/uL 150-450[facility] Medical CenterProtein [Mass/volume] in Serum or Plasma Ordered By: Jesus Gonzalez on 80-14-2333Ogxmxtg [Mass/Vol]6.3 g/dL6.1-7.9A[facility] Medical CenterRBC Auto (Bld) [#/Vol]Ordered By: Jesus Gonzalez on 34-29-7945NKN (Bld) [#/Vol]4.31 10*6/uL3.60-5.00Ohio[facility] Hardin Memorial Hospitalerum or plasma alanine aminotransferase measurement without P-5'-P (enzymatic activiOrdered By: Jesus Gonzalez on 25-65-6307KWD No additional P-5'-P [Catalytic activity/Vol]22 U/I64-98WqwntcbjgOhioHealth Hardin Memorial Hospitalerum or plasma albumin/globulin mass ratioOrdered By: Jesus Gonzalez on 05-01-2022 Albumin/Globulin [Mass ratio]1.7 {ratio}[facility] Hospitalerum or plasma alkaline phosphatase measurement (enzymatic activity/volume)Ordered By: Jesus Gonzalez on 07-57-4301GWH [Catalytic activity/Vol]52 U/W52-88WezqpyauxOhioHealth Hardin Memorial Hospitalerum or plasma aspartate aminotransferase measurement (enzymatic activity/volume)Ordered By: Jesus Gonzalez on 46-09-8830VNX [Catalytic activity/Vol]17 U/A21-22ObkimamlyOhioHealth Hardin Memorial Hospitalerum or plasma calcium measurement (mass/volume)Ordered By: Jesus Gonzalez on 55-36-2885Recvlip [Mass/Vol] 9.5 mg/dL8.2-10.2FKindred Hospital Daytonerum or plasma chloride measurement (moles/volume)Ordered By: Jesus Gonzalez on 34-85-0052Hhusyteq [Moles/Vol]100 mmol/T28-785DmrerpzcaOhioHealth Hardin Memorial Hospitalerum or plasma glucose measurement (mass/volume)Ordered By: Jesus Gonzalez on 60-16-9889Zmgfhls [Mass/Vol]96 mg/qT17-451NjlyqewzrAdena Pike Medical CenterComment on above:ADA recommended reference range Random Glucose Reference Range is dependent on time and content of last meal. Glucose of more than 200 mg/dL in a nonstressed, ambulatory subject supports the diagnosis of Diabetes Mellitus.ADA recommended reference rangeRandom Glucose Reference Range is dependent on time and content of last meal. Glucose of more than 200 mg/dL in a nonstressed, ambulatory subject supports the diagnosisof Diabetes Mellitus.Serum or plasma high density lipoprotein (HDL) cholesterol measurementOrdered By: Jesus Gonzalez on 49-11-6879Ywlihwhgmoj in HDL [Mass/Vol]78 mg/dD53-58SiorwjfneAdena Pike Medical CenterComment on above:HDL CHOL ATP-III CLASSIFICATION Cardiovascular Risk HDL > or equal to 60 mg/dL LOW HDL < 40 mg/dL HIGHHDL CHOL ATP-III CLASSIFICATION Cardiovascular RiskHDL > or equal to 60 mg/dL LOWHDL < 40 mg/dL HIGHSerum or plasma potassium measurement (moles/volume)Ordered By: Jesus Gonzalez on 59-60-2108Ieflwxrdp [Moles/Vol]4.2 mmol/L3.5-5.1FKindred Hospital Daytonerum or plasma sodium measurement (moles/volume)Ordered By: Jesus Gonzalez on 83-82-8736Leimks [Moles/Vol]134 mmol/L 136-146OhioHealth Hardin Memorial Hospitalerum or plasma thyroxine (T4) measurement (mass/volume)Ordered By: Jesus Gonzalez on 13-13-4879X6 [Mass/Vol]9.20 ug/dL5.39-11.82Ohio[facility] Hardin Memorial Hospitalerum or plasma total bilirubin measurement (mass/volume)Ordered By: Jesus Gonzalez on 55-64-0614Kykaonskr [Mass/Vol]0.4 mg/dL0.3-1.2FKindred Hospital Daytonerum or plasma total carbon dioxide measurement (moles/volume)Ordered By: Jesus Gonzalez on 05-01-2022 CO2 [Moles/Vol]24.2 mmol/L22.0-30.0Ohio[facility] Hardin Memorial Hospitalerum or plasma total cholesterol/high density lipoprotein (HDL) cholesterol mass rat Ordered By: Jesus Gonzalez on 28-25-4928Lvzcilxmfjy.total/Cholesterol in HDL [Mass ratio]2.4 {ratio}<5.0Ohio[facility] Hardin Memorial Hospitalerum or plasma urea nitrogen measurement (mass/volume)Ordered By: Jesus Gonzalez on 54-88-0404Uptx nitrogen [Mass/Vol]14 mg/dL9-23A[facility] Medical CenterTS DL <= 0.005 mIU/L QnOrdered By: Jesus Gonzalez on 05-58-3777NFJ Qn3.07 m[IU]/L0.45-5.33 [facility] Medical CenterTriglyceride [Mass/volume] in Serum or Plasma Ordered By: Jesus Gonzalez on 18-05-3513Hptfmecxaben [Mass/Vol]97 mg/oF30-471 [facility] CenterComment on above:TRIG ATP III CLASSIFICATION TRIG less than 150 mg/dL Normal TRIG 150-199 mg/dL Borderline high TRIG 200-500 mg/dL High TRIG greater than 500 mg/dL Very high Standard traceable to the Center for Disease Conrtrol and Prevention (CDC) test method.TRIG ATP III CLASSIFICATIONTRIG less than 150 mg/dL NormalTRIG 150-199 mg/dL Borderline highTRIG 200-500 mg/dL High TRIG greater than 500 mg/dL Very highStandard traceable to the Center for Disease Conrtrol and Prevention (CDC) test method.Triiodothyronine (T3) resin uptake testOrdered By: Jesus Gonzalez on 41-03-1627C7GT05 %24-39Adena Pike Medical CenterComment on above: Performed at: [facility] [id number] Shower Attendant: Maxim Daniel PhD, Phone: [phone] at: [facility] [address] [id number] Director: Maxim Daniel PhD, Phone: [phone] wrist RT 2Von 00-24-9488VC wrist RT 2[facility] [employer] Other xr wrist RT 2[facility] [employer] Other XR wrist RT [id number] [employer] Other xr wrist RT [address] [employer] Other XR wrist RT 2VXRay ReportWashington [employer] Other XR wrist RT 2VSignedWashington [employer] Other XR wrist RT 2VPatient: Kourtney Novak MR#: [id number] [place] [employer] Other XR wrist RT [id number] [employer] Other XR wrist RT 2VDOB: 1975 Acct:[id number] [employer] Other XR wrist RT 2VAge/Sex: 46 / F ADM Date: 01/24/22[place] [employer] Other XR wrist RT 2VLoc: [place] Room: Type: [facility] [employer] Other XR wrist RT 2VAttending Dr: Elyssa Gomes MDWashington [employer]iu Other XR wrist RT 2VOrdering Provider: Elyssa Gomes MD [employer] Other XR wrist RT 2VDate of Service: 01/24/22[place] [employer] Other XR wrist RT 2VAccession #: [id number] XR/XR wrist RT 2V: Osteochondrosis of lunate of right wristWashington [employer] Other XR wrist RT 2VCopies to: Elyssa Gomes MDWashington [employer] Other XR wrist RT 2VRight wrist 01/24/2022.[employer] Other XR wrist RT 2VCLINICAL DATA: Osteochondrosis of lunate of right wrist.[employer] Other XR wrist RT 2VFINDINGS: 2 views of the right wrist were obtained and are compared with a prior study 12/24/2021.[employer] Other XR wrist RT 2VNo acute fracture or dislocation is identified. The lunate again appears sclerotic. This [facility] [employer] Other XR wrist RT 2Vhas not significantly changed. No collapse is seen. No soft tissue swelling is visualized.[place] [employer] Other XR wrist RT 2VORDER #: [id number] XR/XR wrist RT 2V [facility] [employer] Other XR wrist RT 2VIMPRESSION: Sclerotic lunate, not significantly changed.[facility] [employer] Other XR wrist RT 2VImpression dictated by: Brody Marks Jr., M.D.01/24/2022 3:00 [facility] [employer] Other XR wrist RT 2VDictation Location: [address] [employer] Other XR wrist RT 2VTranscribed By: GRACIE 01/24/[address] [place] [address] [employer] Other XR wrist RT 2VDictated By: Brody Marks Jr, MD 01/24/[address] [place] [address] [employer] Other XR wrist RT 2VSigned By:[place] [employer] Other XR wrist RT 2V01/24/[address] [place] [address] [employer] Other XR wrist RT min 3V*on 22-82-4404ZH wrist RT min 3V* [facility] [employer] Other XR wrist RT min 3V*[facility] [employer] Other XR wrist RT min 3V*1111 [facility] [employer] Other XR wrist RT min 3V*VIVIEN Giron [address]Cmogq [employer] Other XR wrist RT min 3V*[facility] [employer] Other XR wrist RT min 3V*SignedCiRBA Other XR wrist RT min 3V*Patient: Kourtney Novak MR#: [id number] [employer] Other XR wrist RT min 3V*[id number] [employer] Other XR wrist RT min 3V*: 1975 Acct:[id number] [place] [employer] Other XR wrist RT min 3V*Age/Sex: 46 / F ADM Date: 11/20/21 [place] [employer] Other XR wrist RT min 3V*[place]: [facility] [place]: Type: [facility] [employer] Other XR wrist RT min 3V*Attending Dr: Elyssa Gomes MD [employer] Other XR wrist RT min 3V*Ordering Provider: Elyssa Gomes MDWebLinc [employer] Other XR wrist RT min 3V*Date of Service: 11/20/21[place] [employer] Other XR wrist RT min 3V* XR/XR wrist RT min 3V*: Other specified postproceduralWebLinc [employer] Other XR wrist RT min 3V*states;Osteochondrosis of lunWashington [employer]iu Other XR wrist RT min 3V*Copies to: Elyssa Gomes MD [employer] Other XR wrist RT min 3V*4 viewsRIGHT wrist plain filmWebLinc [employer] Other XR wrist RT min 3V*COMPARISON:[facility] [employer] Other XR wrist RT min 3V*HISTORY:Status post RIGHT wrist degeneration with previous core decompressionWashington [employer]agiu Other XR wrist RT min 3V*Sclerotic changes of the lunate present. No collapse identified. Calculi metacarpal bonesWashington [employer]agiu Other XR wrist RT min 3V*identified. No soft tissue abnormality seen.[employer] Other XR wrist RT min 3V* XR/XR wrist RT min 3V*[employer] Other XR wrist RT min 3V*IMPRESSION:Sclerotic changes of the lunate. Adequate bony alignment. No collapse.[employer] Other XR wrist RT min 3V*Impression dictated by: George Gray M.D.11/20/2021 3:59 PMNBuffalo [facility] [employer] Other XR wrist RT min 3V*Dictation Location: [address] [employer] Other XR wrist RT min 3V*Transcribed By: [facility] 11/20/[address] [place] [address] [employer] Other XR wrist RT min 3V*Dictated By: George Gray DO 11/20/[address] [place] [address] [employer] Other XR wrist RT min 3V*Signed By:[employer] Other XR wrist RT min 3V*11/20/[address] [place] [address] [employer] Other XR wrist RT min 3V*on 83-31-0025EB wrist RT min 3V* [facility] [employer] Other XR wrist RT min 3V*[facility] [employer] Other XR wrist RT min 3V*1111 [facility] [employer] Other XR wrist RT min 3V*VIVIEN Giron [address]Yjqwl [employer] Other XR wrist RT min 3V*XRay ReportWashington [employer]iu Other XR wrist RT min 3V*SignedWashington [employer] Other XR wrist RT min 3V*Patient: Kourtney Novak MR#: [id number] [employer] Other XR wrist RT min 3V*[id number] [employer] Other XR wrist RT min 3V*: 1975 Acct:[id number] [employer] Other XR wrist RT min 3V*Age/Sex: 45 / F ADM Date: 08/28/21 [employer] Other XR wrist RT min 3V*[place] [facility] Room: Type: [facility] [employer] Other XR wrist RT min 3V*Attending Dr: Elyssa Gomes MD [employer] Other XR wrist RT min 3V*Ordering Provider: Elyssa Gomes MDWashington [employer]agiu Other XR wrist RT min 3V*Date of Service: 08/28/21[place] [employer] Other XR wrist RT min 3V* XR/XR wrist RT min 3V*: M92.211[place] [employer] Other XR wrist RT min 3V*Copies to: Elyssa Gomes MD [employer] Other XR wrist RT min 3V*RIGHT WRIST - [facility] [employer] Other XR wrist RT min 3V*CLINICAL DATA: Right wrist pain and decreased range of motion. No injury.[employer] Other XR wrist RT min 3V*COMPARISON: 11/15/2020 and MRI 11/15/2020Web[employer]inc [employer] Other XR wrist RT min 3V*AP, lateral, oblique and ulnar deviation views were obtained. There is no acute fracture [facility] [employer] Other XR wrist RT min 3V*dislocation. Minor sclerosis is again seen at the lunate where there is also subchondral cysticNortAnomaly Innovations Other XR wrist RT min 3V*change medially. This is similar to the prior. There is no developing joint space narrowing [facility] HospitalGood[facility] Other XR wrist RT min 3V*hypertrophy. No prominent soft tissue swelling is noted.[employer] Other XR wrist RT min 3V* XR/XR wrist RT min 3V*[employer] Other XR wrist RT min 3V*IMPRESSION:[employer] Other XR wrist RT min 3V*BONY CHANGES AT THE LUNATE, SIMILAR TO THE COMPARISON.[employer] Other XR wrist RT min 3V*NO ACUTE FINDINGS.[employer] Other XR wrist RT min 3V*Impression dictated by: Trixie Irizarry M.D.08/28/2021 4:42 PMNsullivan [facility] [employer] Other XR wrist RT min 3V*Dictation Location: [facility]-- [employer] Other XR wrist RT min 3V*Transcribed By: [facility] 08/28/21 1642 [employer] Other XR wrist RT min 3V*Dictated By: Trixie Irizarry MD 08/28/21 1639CiRBA Other XR wrist RT min 3V*Signed By:[employer] Other XR wrist RT min 3V*08/28/21 1642CiRBA Other XR FOOT 3V AP/LAT/OBL BILon 77-15-4103YC FOOT 3V AP/LAT/OBL TODD* * *Final Report* * * DATE OF [...] Normal soft tissues. No other significant abnormality. IMPRESSION: NORMAL Client Relations Specialist: GUANACO Transcribe Date/Time: Mar 04 2021 2:52P Dictated by : TOBI HERRMANN MD This examination was interpreted and the report reviewed and electronically signed by: TOBI HERRMANN MD on Mar 04 2021 2:57PM EST [id number] Choice Medical CenterXR HAND 3V PA/LAT/OBL BILon 03-04-2021 XR HAND 3V PA/LAT/OBL TODD* * *Final Report* * * DATE OF [...] Normal soft tissues. No other significant abnormality. IMPRESSION: NO ACUTE OSSEOUS ABNORMALITY REMOTE FRACTURES OF THE LEFT WRIST DESCRIBED Client Relations Specialist: GUANACO Transcribe Date/Time: Mar 04 2021 2:57P Dictated by : TOBI HERRMANN MD This examination was interpreted and the report reviewed and electronically signed by: TOBI HERRMANN MD on Mar 04 2021 2:59PM EST [id number]_[facility] Vital Signs Date TimeVital SignValuePerforming SajtyaxbzBezxweul81-19-3028 22:31-0400 Diastolic blood vgybpggu55 mm[Hg]Jesus Gonzalez MD Work Phone: [phone])[address]09-22-2025 22:31-0400 Heart rate74 /Beverly Gonzalez MD Work Phone: [phone] [place], [place] 3506309-22-2025 22:31-0400 Respiratory rate16 /Beverly Gonzalez MD Work Phone: [phone] [place], [place] 3506309-22-2025 22:31-0400 SaO2% (BldA) [Mass fraction]99 %Jesus Gonzalez MD Work Phone: [phone] [place], [place] 3506309-22-2025 22:31-0400 Systolic blood gabnqsab482 mm[Hg]Jesus Gonzalez MD Work Phone: [phone])[address] [place], [place] 3506309-22-2025 20:19-0400 Body noufow191.56 cmJesus Gonzalez MD Work Phone: [phone] [place], [place] 3506309-22-2025 20:19-0400 Body zpyobnkohyv67.3 [degF]Jesus Gonzalez MD Work Phone: [phone]09-22-2025 20:19-0400 Body revxdv878.39 kgJesus Gonzalez MD Work Phone: [phone] [place], [place] 3506309-22-2025 17:46-0400 Body mass index (BMI) [Ratio]42.27 kg/h0UfrexuwLamar Dorsey DISTRIBUTION CENTER ASSISTANT Work Phone: [facility] CareScxbazxhti12-60-9054 17:46-0400Body temperature 98.71 [degF]Lamar Dorsey DISTRIBUTION CENTER ASSISTANT Work Phone: noms Glfmfsovrw32-85-5624 17:46-0400Body xkjahv760.21 kgLamar Dorsey DISTRIBUTION CENTER ASSISTANT Work Phone: [facility] CareYiuofsepur56-82-9811 17:46-0400Diastolic blood sbhbiesr38 mm[Hg]Lamar Dorsey DISTRIBUTION CENTER ASSISTANT Work Phone: [facility] CareEvwazroqie39-28-1602 17:46-0400Heart rate88 /min Lamar Dorsey DISTRIBUTION CENTER ASSISTANT Work Phone: 1([phone])305-[address] [place] [address]-22-2025 17:46-0400Respiratory rate20 /minLamar Dorsey DISTRIBUTION CENTER ASSISTANT Work Phone: [phone] [place], [place] [address]Qygsivhcxc24-79-8703 17:46-9176LeH9% (BldA) [Mass fraction]99 %Lamar Dorsey DISTRIBUTION CENTER ASSISTANT Work Phone: [facility] CareRmnxfmklsk61-93-3994 17:46-0400Systolic blood yzwqxvbn358 mm[Hg]Lamar Dorsey DISTRIBUTION CENTER ASSISTANT Work Phone: [phone] [address]-10-2025 14:51-0400Body moenma679.1 cmSusan Rice WHCNP Work Phone: [phone] [place], [place] 5133109-10-2025 14:51-0400Body mass index (BMI) [Ratio]40.77 kg/b8Qlakr Rice WHCNP Work Phone: [phone] [place], [place] 5133109-10-2025 14:51-0400Body iniijs772.13 kgSusan Rice WHCNP Work Phone: [phone] [place], [place] 5133109-10-2025 14:51-0400Diastolic blood mm[Hg]Zulema Rice WHCNP Work Phone: [phone] [place], [place] 5133109-10-2025 14:51-0400Heart rate88 /minSusan Rice WHCNP Work Phone: [phone] [place], [place] 5133109-10-2025 14:51-0400Respiratory rate18 /minSusan Rice WHCNP Work Phone: [facility]09-10-2025 14:51-9800UtL5% (BldA) [Mass fraction]98 %Zulema Mckinney CNP Work Phone: [facility]09-10-2025 14:51-0400Systolic blood rvopxovm795 mm[Hg]Zulema Mckinney CNP Work Phone: [facility]09-09-2025 13:21-0400Body mass index (BMI) [Ratio]41.27 kg/g8HmdcxkhYola Wilburn DISTRIBUTION CENTER ASSISTANT Work Phone: [facility] CareDnjfaqbasr72-21-3084 13:21-0400Body temperature 98.29 [degF]Yola Wilburn DISTRIBUTION CENTER ASSISTANT Work Phone: [facility] CareKkaldutsos36-52-6165 13:21-0400Body .49 kgLinamrik Wilburn DISTRIBUTION CENTER ASSISTANT Work Phone: [facility] CareZjroiitpmb58-28-3031 13:21-0400Diastolic blood usfgynbj50 mm[Hg]Yola Wilburn DISTRIBUTION CENTER ASSISTANT Work Phone: [facility] CareNhcsgdtatf72-30-8853 13:21-0400Heart rate74 /min Yola Wilburn DISTRIBUTION CENTER ASSISTANT Work Phone: [facility] CareYshjprtnuq40-66-7651 13:21-8211JuY2% (BldA) [Mass fraction]98 %Yola Wilburn DISTRIBUTION CENTER ASSISTANT Work Phone: [facility] CareRrqezyabnk70-85-7103 13:21-0400Systolic blood wwwuxhga779 mm[Hg]Yola Wilburn DISTRIBUTION CENTER ASSISTANT Work Phone: [facility] CareFpdkwuvrcc61-58-1255 12:03-0400Body mass index (BMI) [Ratio]40.83 kg/g1Oxgzln Appointments Work Phone: [facility]07-02-2025 12:03-0400Body xwhalc217.3 kgFellow Appointments Work Phone: [facility] HospitalComment on above:with -96-1232 12:03-0400Diastolic blood hytncbhb99 mm[Hg]Fellow Appointments Work Phone: [facility] HospitalComment on above: ebyxnjcl18-04-0502 12:03-0400Heart rate82 /minFellow Appointments Work Phone: [facility]07-02-2025 12:03-0400Respiratory rate 18 /minFellow Appointments Work Phone: [facility]07-02-2025 12:03-0031RvS2% (BldA) [Mass fraction]99 %Fellow Appointments Work Phone: [facility]07-02-2025 12:03-0400Systolic blood msrecamn898 mm[Hg]Fellow Appointments Work Phone: [facility] HospitalComment on above: wogymnic68-08-6531 13:17-0400Body kfxgby518.1 cmSusan Rice WHCNP Work Phone: [phone] [place], [place] 5133106-30-2025 13:17-0400Body mass index (BMI) [Ratio]40.77 kg/m8Axgbm Rice WHCNP Work Phone: [phone])[address] [place], [place] 5133106-30-2025 13:17-0400Body tzdgiq075.13 kgSusan Rice WHCNP Work Phone: [phone] [place], [place] 5133106-30-2025 13:17-0400Diastolic blood jqnunsls21 mm[Hg]Zulema Rice WHCNP Work Phone: [phone] [place], [place] 5133106-30-2025 13:17-0400Heart rate76 /minSusan Rice WHCNP Work Phone: [phone] [place], [place] 5133106-30-2025 13:17-0400Respiratory rate16 /minSusan Rice WHCNP Work Phone: [phone] [place], [place] 5133106-30-2025 13:17-3330JtW1% (BldA) [Mass fraction]97 %Zulema Rice WHCNP Work Phone: [facility]06-30-2025 13:17-0400Systolic blood hujgwvda228 mm[Hg]Zulema Mckinney [facility] Work Phone: [facility]06-23-2025 10:11-0400Body mass index (BMI) [Ratio]39.95 kg/m2Shakila [facility] CenterdiPro[facility]06-23-2025 10:11-0400Body gpjotcpbovw77.19 [degF]Shakila [facility] CenterdiPro[facility]06-23-2025 10:11-0400Body .9 kges [facility] 03-06-2025 10:11-0400Diastolic blood bfugiiyu94 mm[Hg][facility]di[facility]06-23-2025 10:11-0400Heart rate93 /[facility] Centerdiac [facility] 03-06-2025 10:11-0400Respiratory rate18 /minSa [facility] CenterdiPro[facility] 03-06-2025 10:11-6615JgL7% (BldA) [Mass fraction]100 %[facility] HospitalComment on above:vn84-47-2378 10:11-0400Systolic blood fgczesjp396 mm[Hg] Shakila [facility]Paulding [facility]06-09-2025 15:51-3287YsZ7% (BldA) [Mass fraction] 98 %[facility] HospitalComasc[facility] prov[facility] on above:Order Comment: Specimen Type: ARTERIAL BLOOD SPECIMENOrdering Facility: [facility]Address: [address] [id number] By: #### ALLMG ####[facility] LABCLIA [id number] [address] STATES OF [id number] 13:28-2781FjY9% (BldA) [Mass fraction]99 %[facility] on above:Order Comment: Specimen Type: ARTERIAL BLOOD SPECIMENOrdering Facility: [facility]Address: [address] [id number] By: #### ALLMG ####[facility] LABCLIA [id number] [facility] [place] [address] [place] DFIIITN76-75-2236 07:42-0400Body height 163.8 cmPacc 2 Work Phone: [facility]06[facility] 07:42-0400Body mass index (BMI) [Ratio]40.98 kg/m2Pacc 2 Work Phone: [facility]06-03-2025 07:42-0400Body temperature 98.71 [degF]Pacc 2 Work Phone: [facility]06-03-2025 07:42-0400Body xuuwgp036 kg Pacc 2 Work Phone: [facility]06-03-2025 07:42-0400Diastolic blood wnqzwukd88 mm[Hg]Pacc 2 Work Phone: [facility]06-03-2025 07:42-0400Heart rate80 /min Pacc 2 Work Phone: [facility]06-03-2025 07:42-0400Respiratory rate 16 /minPacc 2 Work Phone: [facility]06-03-2025 07:42-0757ToA6% (BldA) [Mass fraction]96 %Pacc 2 Work Phone: [facility]06-03-2025 07:42-0400Systolic blood mwfndwev258 mm[Hg]Pacc 2 Work Phone: [facility]04-16-2025 09:34-0400Body mass index (BMI) [Ratio]41.06 kg/o7SinsbZulema Wood MD Work Phone: [facility]04-16-2025 09:34-0400Body sbncut063.2 kgZulema Wood MD Work Phone: [facility]04-16-2025 09:34-0400Diastolic blood lgwgljhu49 mm[Hg]Zulema Wood MD Work Phone: [facility]04-16-2025 09:34-0400Heart syms096 /minSusan Vinay MCGHEE Work Phone: [facility]04-16-2025 09:34-0400Systolic blood uyiqhkow533 mm[Hg]Zulema Wood MD Work Phone: [facility]10-30-2024 17:34-0400Body mass index (BMI) [Ratio]40.77 kg/m2Tacosrae Jairon DISTRIBUTION CENTER ASSISTANT Work Phone: [facility]Columb[facility] HospitalOswxjmevle64-68-7912 17:34-0400Body temperature 98.71 [degF]Estevan De La O DISTRIBUTION CENTER ASSISTANT Work Phone: [facility] CareAxvzucskna07-11-8042 17:34-0400Body cesvap633.13 kgEstevan Jairon DISTRIBUTION CENTER ASSISTANT Work Phone: [facility] CareHucydvpnnd04-03-2466 17:34-0400Diastolic blood dmrlgojv29 mm[Hg]Estevan De La O DISTRIBUTION CENTER ASSISTANT Work Phone: [facility] CareTfrzltxedk29-03-7614 17:34-0400Heart rate87 /min Estevan De La O DISTRIBUTION CENTER ASSISTANT Work Phone: [facility] CareGohwpbbqxe25-03-7283 17:34-4951NnP8% (BldA) [Mass fraction]99 %Estevan De La O DISTRIBUTION CENTER ASSISTANT Work Phone: NOColumb[facility] HospitalExitfuqimt36-43-3054 17:34-0400Systolic blood hlhxanbe504 mm[Hg]Estevan De La O DISTRIBUTION CENTER ASSISTANT Work Phone: [facility] CareWdqnbtydba41-25-0624 09:38-0400Body mass index (BMI) [Ratio]40.61 kg/v9GfvxsZulema Wood MD Work Phone: [facility]09-16-2024 09:38-0400Body zwegcm882 kg Zulema Wood MD Work Phone: [facility]09-16-2024 09:38-0400Diastolic blood iqmkqijf41 mm[Hg]Zulema Wood MD Work Phone: [facility]09-16-2024 09:38-0400Heart rate87 /min Zulema Wood MD Work Phone: [facility]09-16-2024 09:38-0400Respiratory rate 18 /minSandrew Wood MD Work Phone: [facility]09-16-2024 09:38-0400Systolic blood vyscioqe163 mm[Hg]Zulema Wood MD Work Phone: [facility]10-17-2023 10:52-0400Body cm Erik Pineda MD Work Phone: KDel[facility] HospitalXukait75-25-2151 10:52-0400Body temperature 98.71 [degF]Erik Pineda MD Work Phone: ZDel[facility] HospitalMpxbtb73-08-3941 10:52-0400Body .88 kgErik Pineda MD Work Phone: RDel[facility] HospitalUrrssb87-40-5439 10:52-0400Diastolic blood udghflcp53 mm[Hg]Erik Pineda MD Work Phone: MDelaware [facility] HospitalBbzyel81-12-7980 10:52-0400Heart hqxo477 /minErik Pineda MD Work Phone: CDelaware County HospitalPadyxx54-32-8526 10:52-0400Respiratory rate 18 /minErik Pineda MD Work Phone: C[facility] centerand Lshhtw00-51-4565 10:52-9222JvF9% (BldA) [Mass fraction]97 %Erik Pineda MD Work Phone: CDelaware County HospitalNmffeq57-26-7463 10:52-0400Systolic blood rrocelvf005 mm[Hg]Erik Pineda MD Work Phone: CDelaware County HospitalIcwebj03-32-7034 07:10-0400Body mmposm569.1 cmMD Jesus Carlos Work Phone: [facility]08-23-2023 07:10-0400 Body iezpod631.05 kgMD Jesus Gonzalez Work Phone: [facility]07-18-2023 09:30-0400 Body .1 Briana Shields Other noWebLinc [employer] Other 07-18-2023 09:30-0400Body mass index (BMI) [Ratio] 36.94 kg/k9RlzchmuRussell Shields Other [employer] Other 07-18-2023 09:30-0400Body .7 kgCamsrinivas Shields Other nossm [facility] [employer] Other 07-18-2023 09:30-0400Diastolic blood mm[Hg] Russell Shields Other noWebLinc [employer] Other 07-18-2023 09:30-0400Systolic blood uvnsppxa710 mm[Hg] Russell Sihelds Other [employer] [facility] [employer] Other 01-16-2023 15:28-0500Body smaajo704.08 kgZulema Wood MD Work Phone: [facility]01-16-2023 15:28-0500Diastolic blood inlarzod28 mm[Hg]Zulema Wood MD Work Phone: [facility]01-16-2023 15:28-0500Heart rate99 /min Zulema Wood MD Work Phone: [facility]01-16-2023 15:28-0500Systolic blood besgwmwl095 mm[Hg]Zulema Wood MD Work Phone: [facility]11-03-2022 15:45-0400Body pseoep563.1 cmBeti Bowles Other noWebLinc [employer] Other 07-18-2022 14:00-0400Body .1 cmJenntre Jean-[facility] Other noCiRBA Other 07-18-2022 14:00-0400Body mass index (BMI) [Ratio]39.6 kg/j8YhapdhotBeti Bowles Other [employer] Other 07-18-2022 14:00-0400Body hvcpeh411.96 kgBeti Bowles Other [employer] Other 05-16-2022 14:15-0400Body malpmc561.1 cmBeti Bowles Other [employer] Other 05-16-2022 14:15-0400Body mass index (BMI) [Ratio] 39.93 kg/f4TaftgoimBeti Bowles Other [employer] Other 05-16-2022 14:15-0400Body ttaolk088.86 kgBeti Bowles Other [employer] Other 05-09-2022 11:03-0400Body aefmpl232.1 Nabil Wood MD Work Phone: [facility]05-09-2022 11:03-0400Body kzdmvi153.06 kgZulema Wood MD Work Phone: [facility]05-09-2022 11:03-0400Diastolic blood rtozpwbw13 mm[Hg]Zulema Wood MD Work Phone: [facility]05-09-2022 11:03-0400Heart vnwb945 /Edgar Wood MD Work Phone: [facility]05-09-2022 11:03-0400Systolic blood tmorfnqw954 mm[Hg]Zulema Wood MD Work Phone: [facility]03-09-2022 16:15-0500Body pndaui996.1 cmColleen Calvey Other [employer] Other 03-09-2022 16:15-0500Body mass index (BMI) [Ratio] 39.93 kg/p3Daxidzm Calvey Other [employer] Other 03-09-2022 16:15-0500Body robhgw383.86 kgColleen Calvey Other [employer] Other 01-25-2022 15:15-0500Body bhaths557.1 cmColleen Calvey Other [employer] Other 01-25-2022 15:15-0500Body mass index (BMI) [Ratio] 39.43 kg/n6Dfpvbfq Calvey Other [employer] Other 01-25-2022 15:15-0500Body .5 kgColleen Calvey Other [employer] Other 12-15-2021 16:15-0500Body mkavfz216.1 cmColleen Calvey Other [employer] Other 12-15-2021 16:15-0500Body mass index (BMI) [Ratio] 38.77 kg/y5Vlurysq Calvey Other [employer] Other 12-15-2021 16:15-0500Body amkjme107.69 kgColleen Calvey Other [employer] Other Encounters Encounter DateEncounter TypeCare ProviderFacilityStart: 06-27-2025 End: 60-23-0715Rqopbcz encounter procedureAnna E Damaris DISTRIBUTION CENTER ASSISTANT-C-MRI [facility] Work Phone: Start: 06-27-2025 End: 18-65-2197yijvresdvzGxtabrm M Hoy MD Work Phone: [facility] Work Phone: Start: 22-89-0049lnnibuut oral evaluation - established patientJesus Gonzalez MDNIOBRARA VALLEY HOSPITALtart: 06-27-2025 ambulatoryDoerik Gonzalez MDNIOBRARA VALLEY HOSPITALtart: 06-26-2025 End: 68-40-0953Wwracdk encounter procedureJesus Langston MD-[facility] Work Phone: Start: 06-26-2025 End: 57-71-7858yrwpepzubpCpfynls M Hoy MD Work Phone: [facility] Work Phone: Start: 00-22-7388Cbeeokdtq for general adult medical examination without abnormal findingsJesus Bui [facility] Start: 06-22-2025 End: 32-66-5709tjtkojjcggEWNKI P MATHAIFacility:[facility] Hospitaltart: 06-19-2025 End: 07-32-3545Vasnsdn encounter Daniel Langston MD-CT Scan [facility] Work Phone: Start: 06-19-2025 End: 82-85-5014flzbpvcjrzPnttbpq M Hoy MD Work Phone: [facility] Work Phone: Start: 06-13-2025 End: 70-14-2875Sfgjqhe encounter Daniel Langston MD-Ultrasound [facility] Work Phone: Start: 06-13-2025 End: 83-99-4238jvahxvexfnGgpukmb M Hoy MD Work Phone: [facility] Work Phone: Start: 06-06-2025 End: 59-17-4972Dgtcasnit encounterLindsay N Milton DISTRIBUTION CENTER ASSISTANT Work Phone: [facility] MedicineStart: 06-05-2025 End: 11-79-7799Yiqaifcyb department patient visitJesus Gonzalez MD Work Phone: [phone]-Gfcsfelpg Room Work Phone: Start: 06-05-2025 End: 42-59-1332jfbbuvhtfwPFWPFYT N AUSTINNot AvailableStart: 06-05-2025 End: 82-20-8032Zujsrz outpatient visit 25 minutesLinmohamud Dorsey DISTRIBUTION CENTER ASSISTANT Work Phone: NO [facility] CareComment on above:Rib pain on right side (Primary Dx); Sprain of costal cartilage, initial encounterStart: 05-30-2025 End: 81-20-5743juuhsxotwuXwhaghh M Hoy MD Work Phone: [facility] Work Phone: Start: 05-30-2025 End: 71-90-0108Vwkrznq encounter procedureKrishan Curran [facility] Work Phone: Start: 05-30-2025 End: 53-02-1223Noalswb encounter procedureKrishan Curran [facility] Start: 05-30-2025 End: 82-28-6804mpsngqqnqoCvuxirt M Hoy MD Work Phone: [facility] Work Phone: Start: 05-29-2025 End: 67-47-4125rcicjvhlxeHpxsnozYamileth Hollingsworth MDFacility:[facility] Start: 05-26-2025 End: 81-41-2858Vhlwoth encounter procedureJesus Langston MD-[facility] CenterStart: 05-26-2025 End: 44-57-2748uiqtathwohVyzwrdu M Hoy MD Work Phone: [facility] Work Phone: Start: 05-24-2025 End: 10-64-9625Xrskdy outpatient visit 5 minutesZulema Mckinney WHCNP Work Phone: [facility]: 05-23-2025 End: 50-24-6541Spiopb outpatient visit 25 minutesYola Wilburn DISTRIBUTION CENTER ASSISTANT Work Phone: [facility] CareComment on above:Fibromyalgia Start: 05-23-2025 End: 82-23-5637jnifmyhwncIDZXLJN R LACONISNot AvailableStart: 05-17-2025 End: 84-90-1915LxkdrmPfwtqzvq Hamdan APRN.ENGINE LATHE SET UP OPERATOR TOOL Work Phone: Neurology [facility] FHCComment on above:Refill RequestStart: 04-25-2025 End: 32-83-8019PkysusXajho P Mathai MD Work Phone: RheumatologyComment on above:Refill RequestStart: 04-24-2025 End: 46-32-9340plqmlvjbcnEqmfoij Vytautas Darrick MCGHEEFacility:[facility] Start: 04-12-2025 End: 16-21-4698Uudmfbfytcbw consultation with Balbina Fenton APRN.CNP Work Phone: NeurologyStart: 04-12-2025 End: 60-33-8469wwnsnhsfktKrgvxxnl Hamdan APRN.ENGINE LATHE SET UP OPERATOR TOOL Work Phone: NeurologyComment on above:Meningioma (HCC) (Primary Dx); Chronic daily headacheStart: 03-29-2025 End: 88-89-6889Zqdkaykmwmhn consultation with Whitley Pineda MD Work Phone: [facility] CenterStart: 03-29-2025 End: 54-57-9474quwinqferhOjxkg F Recinos MD Work Phone: [facility] Tumor CenterComment on above: Intracranial meningioma (HCC) (Primary Dx); Postprocedural state; Dizziness and giddinessStart: 03-26-2025 End: 81-34-3060xybnuxnwtsAuvtg F Recinos MD Work Phone: [facility] Brain Tumor CenterComment on above:Incision Start: 03-22-2025 End: 87-08-9539ekptvytmpeFaeldwh M Hoy MD Work Phone: [facility] Work Phone: Start: 03-22-2025 End: 64-49-1805Znsthzh encounter procedureCojoe Gomes MD-[facility] Work Phone: Start: 03-20-2025 End: 99-80-1652EkzgukRsmbs Chotai MD Work Phone: Endovascular CenterComment on above:Refill Request Start: 03-15-2025 End: 47-05-4988GqgqdwOitlo Chotai MD Work Phone: Endovascular CenterComment on above:Refill RequestS/P craniotomy (Primary Dx)Start: 03-13-2025 End: 07-87-5593Ctlbcn-up Dulce Wood MD Work Phone: RheumatologyStart: 03-13-2025 End: 88-67-3374Ecetsz outpatient visit 10 minutesSusamarie Mckinney [facility] Work Phone: [facility] DistrictStart: 03-12-2025 End: 76-73-1634YsdvyaSlshtwbo Eliceo NICHOLSENGINE LATHE SET UP OPERATOR TOOL Work Phone: Neurology Headache [place] FHCComment on above:Refill RequestStart: 03-08-2025 End: 50-14-4265Fvqlunhkk encounterSgrant [facility] Comment on above:Surgical FollowupStart: 03-06-2025 End: 65-44-6810LatdycGwlqg P Mathai MD Work Phone: RheumatologyComment on above:Refill RequestStart: 03-06-2025 End: 57-74-4351Zmrbfud evaluation of patient and reportSmarilyn BranhamArbor Health Brain Tumor Fort WorthComment on above:S/P craniotomy (Primary Dx); Intracranial meningioma (HCC); Postop checkStart: 03-06-2025 End: 14-32-3765hlxrtascswEMISJMK M HOYFacility:[facility] HospitalStart: 03-02-2025 End: 46-82-2952Ihcmfphja to same day surgery centerStephanie Moy APRN.CNP Work Phone: NeurosurgeryComment on above:Benign neoplasm of meninges (HCC) (Primary Dx)Start: 03-02-2025 End: 47-65-7074Numklnqeiwht consultation with Lamont Moy APRN.ENGINE LATHE SET UP OPERATOR TOOL Work Phone: NeurosurgeryStart: 03-02-2025 End: 27-28-8473qdxowdbyhbKQNKYTZ M HOYFacility:[facility] HospitalStart: 02-24-2025 End: 08-64-4248WlpyvzHheky P Mathai MD Work Phone: RheumatologyComment on above:Refill RequestStart: 02-23-2025 End: 17-38-3229Bslrztkfy encounterSH[facility] [place] Comment on above:Surgical FollowupStart: 49-01-8653Xcainupha for other preprocedural examinationERIK PINEDASt. Anthony'S HospitalStart: 02-20-2025 End: 41-10-2315Gfpwrcxbrc and management of inpatientDOUGLAS M CARLOS Facility:[facility] Hospitaltart: 02-17-2025 End: 75-75-3970Uhrmrsube encounterSHCA [facility] [place] Comment on above:PreOp CallStart: 02-15-2025 End: 05-70-6362Liguiaicuwja consultation with Whitley Pineda MD Work Phone: [facility] Brain Tumor CenterStart: 02-15-2025 End: 17-38-6214qtymtrckgiYxqyy F Recinos MD Work Phone: [facility] Brain Tumor CenterComment on above: Intracranial meningioma (HCC) (Primary Dx)ConsentStart: 02-15-2025 End: 97-26-9240Jgacrfmkq encounterMehul aMrtin SEATING CAPTAINMICHAEL Work Phone: pre AnesthesiaComment on above:Patient UpdateStart: 02-15-2025 End: 36-31-4237yqqdipfbnlGCZRYRA DAVISFacility:[facility] Hospitaltart: 02-14-2025 End: 64-91-2781Tznfvki encounter statusMri (1.5t) Work Phone: [facility]tart: 02-14-2025 End: 74-59-1072Ftpityxanl hospital visit by physiciani [facility] Alyssa (1.5t) Work Phone: RadiologyComment on above:Intracranial meningioma (HCC) [D32.0]Start: 02-14-2025 End: 67-84-2798Jlmybhoqq to establishmentSt. [facility] [place] [facility] Work Phone: pre AnesthesiaStart: 02-14-2025 End: 74-75-1735Gdaulfavms consultationSt. [facility] [place] [facility] Work Phone: pre AnesthesiaComment on above:Pre-op evaluation (Primary Dx); Anxiety; Chronic obstructive pulmonary [...] mass index (BMI) of40.0 to 44.9 in adult; Inflammatory arthritisStart: 02-14-2025 End: 54-13-6658Sfommbq encounter statusNmcc [place] 2 Work Phone: [facility] Hospitaltart: 02-14-2025 End: 62-21-7502Kxkqssajovjhw examination donePacc [place] 2 Work Phone: [facility] Work Phone: Start: 02-14-2025 End: 88-28-9435eprhnauluiUHNHVVJ M HOYFacility:[facility] HospitalStart: 86-86-0053Rgzxiragy for other preprocedural examinationPABLO RECINOSDoctors Hospital ClevelandStart: 02-10-2025 End: 61-63-6468Qycngdx encounter procedureJesus Gonzalez MD Work Phone: [facility]-Ultrasound [facility] Work Phone: Start: 02-10-2025 End: 82-60-7678fypcvwkmtmMetwoom M Hoy MD Work Phone: [facility] Work Phone: Start: 02-01-2025 End: 78-97-5104Vbmncgn encounter Daniel Gonzalez MD Work Phone: [facility]At[facility] Work Phone: Start: 01-23-2025 End: 60-73-0333DgvdkgOmzxktly Hamdan SEATING CAPTAIN.ENGINE LATHE SET UP OPERATOR TOOL Work Phone: Neurology Headache [place] FHCComment on above:Med Change RequestStart: 01-06-2025 End: 71-49-2152mqixyprinyGMLZLGW M HOYFacility:[facility] HospitalStart: 12-29-2024 End: 95-26-0345MtepuhHfnghfqe Hamdan SEATING CAPTAIN.ENGINE LATHE SET UP OPERATOR TOOL Work Phone: Neurology Headache [place] FHCComment on above:Refill RequestStart: 12-28-2024 End: 68-16-7631Hryzsv outpatient visit 25 minutesZulema Wood MD Work Phone: RheumatologyComment on above:Inflammatory arthritis (Primary Dx); Fibromyalgia; Encounter for medication monitoringStart: 12-28-2024 End: 42-01-8483lalxqgqemmYTNKI P MATHAIFacility:[facility] Hospitaltart: 12-27-2024 End: 21-46-5434xrmntspcxxMqinndq M Hoy MD Work Phone: [facility] Work Phone: Start: 12-27-2024 End: 13-08-7370Rgdqkoz encounter Daniel Gonzalez MD Work Phone: [facility] Physician [facility] Work Phone: Start: 12-13-2024 End: 14-23-5460Wcgnfwb encounter Daniel Gonzalez MD Work Phone: [facility] Atascosatart: 12-13-2024 End: 69-27-4966cpvnojfsmgYsstxdf M Hoy MD Work Phone: [facility] Work Phone: Start: 12-05-2024 End: 38-53-1720Bxlmsmcil encounterSgrant [facility] Comment on above:Care Coordination (MyChart Follow up - Surgery Planning )Start: 11-03-2024 End: 08-94-4741Vwfivzn encounter Daniel Gonzalez MD Work Phone: [facility] Work Phone: Start: 11-03-2024 End: 30-41-8994kjnerfvsyjSmsfcol M Hoy MD Work Phone: [facility] Work Phone: Start: 10-10-2024 End: 47-82-2480Uwaxpkzbm encounterSandrew Wood MD Work Phone: RheumatologyComment on above:Roll Forger - Other (Lab order problem/)Refill RequestStart: 09-27-2024 End: 89-76-2686djaymdqrmxOegtfsj M Hoy MD Work Phone: [facility] Work Phone: Start: 09-27-2024 End: 66-09-0255Venjhus encounter Daniel Gonzalez MD Work Phone: [facility] Work Phone: Start: 09-20-2024 End: 94-59-6955Lfykpespj encounterSandrew Wood MD Work Phone: RheumatologyComment on above:Results (Lab results from [facility])Start: 09-20-2024 End: 98-16-4879Ousuizn encounter Daniel Gonzalez MD Work Phone: [facility] Pasotart: 09-20-2024 End: 84-37-5429qlpznyvbgqEygwgzt M Hoy MD Work Phone: [facility] Work Phone: Start: 09-16-2024 End: 62-28-0140Kccvnws encounter Daniel Gonzalez MD Work Phone: [facility] Work Phone: Start: 09-16-2024 End: 53-02-0008tjfvdzdabvTivwsfx M Hoy MD Work Phone: [facility] Work Phone: Start: 09-09-2024 End: 36-08-6407hxagieujupUulvu P Mathai MD Work Phone: RheumatologyStart: 09-09-2024 End: 65-63-0120Hckeptz encounter procedureSandrew Wood MD Work Phone: RheumatologyComment on above:LabsStart: 08-28-2024 End: 62-61-8843KrrgvkOmbsm P Mathai MD Work Phone: RheumatologyComment on above:Refill RequestStart: 08-01-2024 End: 13-68-7166rslmifhtkmBtbqkfa Vytautas Giedraitis MDFacility:[facility] Start: 07-18-2024 End: 86-20-7116vygittrszhTbaqkuf Vytautas Giedraitis MDFacility:[facility] Start: 07-13-2024 End: 81-97-2970ewqxbdcmfvYPF C MILLERNot AvailableStart: 07-13-2024 End: 28-31-9950Smxtku outpatient visit 25 minutesEstevan De La O DISTRIBUTION CENTER ASSISTANT Work Phone: NOJH SWS UCComment on above:Tooth infection (Primary Dx)Start: 07-04-2024 End: 02-52-2829wvxvxvnhklMqwcktg Vytautas Giedraitis MDFacility:[facility] Start: 06-22-2024 End: 01-98-2585rzetptebboER Jesus Gonzalez Work Phone: [facility] Work Phone: Start: 06-22-2024 End: 82-15-0429Eocgnra encounter procedureMD Jesus Gonzalez Work Phone: [facility] Pasotart: 06-21-2024 End: 43-85-1665tqdkgnxcgfTH Jesus Gonzalez Work Phone: [facility] Work Phone: Start: 06-21-2024 End: 32-11-5993Thrtfns encounter procedureMD Jesus Gonzalez Work Phone: [facility] Work Phone: Start: 06-20-2024 End: 65-62-8799nzgduvrnpeRglxmke Vytautas Giedraitis MDFacility:[facility] [place] Start: 05-30-2024 End: 82-09-9085Mulfhnt encounter procedureSandrew Wood MD Work Phone: RheumatologyComment on above:Inflammatory arthritis (Primary Dx); Fibromyalgia; Medication monitoring encounterStart: 05-25-2024 End: 56-34-7189JewzcrPfibixuq Hamdan SEATING CAPTAIN.ENGINE LATHE SET UP OPERATOR TOOL Work Phone: Neurology Headache [place] FHCComment on above:Refill RequestStart: 05-12-2024 End: 60-03-5290agjfglccbjQW Jesus M Hoy Work Phone: [facility] Work Phone: Start: 05-12-2024 End: 49-57-7187Gaflbtc encounter procedureMD Jesus Hoy Work Phone: [facility]otart: 07-34-0199CrbytxPiujs P Mathai MD Work Phone: RheumatologyComment on above:Refill RequestStart: 22-02-1415cgucssppkqLjweunsh Hamdan SEATING CAPTAIN.ENGINE LATHE SET UP OPERATOR TOOL Work Phone: Neurology Headache [place] FHCComment on above:RobaxinStart: 06-10-3345bzhyrxqqldThlizzqi Juan Luisdan SEATING CAPTAIN.ENGINE LATHE SET UP OPERATOR TOOL Work Phone: Neurology Headache [place] FHCComment on above:InsuranceStart: 76-49-7629Gnpmeurpb encounterPaama Pineda MD Work Phone: [facility] Brain Tumor CenterComment on above:epidural steroid injectionStart: 03-04-2024 End: 90-92-6419zaalvkjyofOQ Jesus Langston Hoy Work Phone: [facility] Work Phone: Start: 03-04-2024 End: 34-57-2974Uiudifv encounter procedureMD Jesus Hoy Work Phone: [facility] Work Phone: Start: 02-15-2024 End: 98-17-2561ndsahqrmslLB Jesus M Hoy Work Phone: [facility] Work Phone: Start: 02-15-2024 End: 50-41-3028Mvqartj encounter procedureMD Jeuss Gonzalez Work Phone: [facility]-Ultrasound [facility] Work Phone: Start: 77-16-2936Fhtwofexc encounterMonilesh Fenton SEATING CAPTAIN.ENGINE LATHE SET UP OPERATOR TOOL Work Phone: NeurologyComment on above:Insurance Authorization; Aurelio DOYLE - Medicare / [employer].Start: 02-09-2024 End: 07-93-6037rzqbomtaogNN Jesus Gonzalez Work Phone: [facility] Work Phone: Start: 02-09-2024 End: 40-48-8746Fmfwonk encounter procedureMD Jesus Gonzalez Work Phone: [facility]-MRI [address] Work Phone: Start: 02-05-2024 End: 64-36-0222fqegxpgsppZabyoljs Hamdan SEATING CAPTAIN.ENGINE LATHE SET UP OPERATOR TOOL Work Phone: Neurology Headache [place] FHCComment on above:Meningioma (HCC) (Primary Dx); Chronic daily headacheStart: 02-05-2024 End: 24-51-5196Dbqvuwtxgivi consultation with patientRachele Fenton SEATING CAPTAIN.ENGINE LATHE SET UP OPERATOR TOOL Work Phone: Neurology Headache [place] FHCStart: 02-02-2024 End: 02-29-2648dmktmbchjxPsngmf Appointments Work Phone: [facility] Brain Tumor CenterComment on above: Intracranial meningioma (HCC) (Primary Dx)Start: 02-02-2024 End: 73-39-9517Yhjueywsryyp consultation with patientFellow Appointments Work Phone: [place] [facility] Tumor CenterStart: 62-80-9080Hbxrahiuh encounterSgrant [facility] Brain Tumor CenterComment on above: AppointmentStart: 85-80-0276AhqfdaMpsfor Goforth MD Work Phone: Neurology Headache [place] FHCComment on above:Refill RequestStart: 91-97-3922yjodnstqwwJQXSZ F RECINOSFacility:[facility]Start: 01-29-2024 End: 36-66-8957Gybdzajaqu hospital visit by physicianCt [facility] Work Phone: RADIO CT SCAN LODI HOSPComment on above: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]Benign neoplasm of meninges (HCC) [D32.9]Start: 60-45-7932QxebjeAedoy P Mathai MD Work Phone: RheumatologyComment on above:Refill RequestStart: 01-26-2024 End: 24-49-3606Cihrvsd encounter procedureMD Jesus Gonzalez Work Phone: [facility] Work Phone: Start: 16-20-8234Qvrbjcdcl encounterSgrant Abel Brain Tumor CenterComment on above:Schedule Surgery (Surgery Planning )Start: 90-95-3556Tizittcxt Dulce Wood MD Work Phone: RheumatologyComment on above:ResultsStart: 01-08-2024 End: 20-47-3666embcxbhriuKZ Jesus Gonzalez Work Phone: [facility] Work Phone: Start: 01-08-2024 End: 32-49-8037Koatwmo encounter procedureMD Jesus Gonzalez Work Phone: [facility]-Lab [facility] CenterStart: 92-79-0047Ujxyvjzcg encounterSgrant Gross Brain Tumor CenterComment on above:Schedule SurgeryStart: 33-05-4789Wgypefpzi Dulce Wood MD Work Phone: RheumatologyComment on above:Lab Orders/FAXStart: 66-66-2436UpsuwrPmeaoRebecca Wood MD Work Phone: RheumatologyComment on above:Refill RequestStart: 11-25-2023 End: 30-12-2081Klphizk encounter procedureMD Jesus Gonzalez Work Phone: [facility] Work Phone: Start: 20-45-4898JqaxqeWkqlhRebecca Wood MD Work Phone: RheumatologyComment on above:Refill RequestStart: 59-67-3357Ggahmozqp encounterSmarilyn Phillips [facility] Brain Tumor CenterComment on above:Care Coordination (follow up)Start: 11-11-2023 End: 03-10-1935Sxwcuxa encounter procedureMD Jesus Gonzalez Work Phone: [facility]-Lab [facility] CenterStart: 39-47-7024EcnjldJadqdRebecca Wood MD Work Phone: RheumatologyComment on above:Refill RequestStart: 68-12-4261TddtkkSjccfRebecca Wood MD Work Phone: RheumatologyComment on above:Refill RequestStart: 37-02-6619Kqyxolfwq to same day surgery centerErik Pineda MD Work Phone: [facility] Brain Tumor CenterComment on above:Surgery Start: 62-51-0669kziiqfjxcuMtlub F Recinos MD Work Phone: [facility] MAINStart: 85-36-8928Ihoifghrz encounterErik Pineda MD Work Phone: [facility] Brain Tumor CenterComment on above:Patient Update (Discuss Surgery March 2024)Start: 06-30-2023 End: 28-04-2743Hxhdtdt encounter procedureErik Pineda MD Work Phone: [facility] Brain Tumor CenterComment on above: Intracranial meningioma (HCC) (Primary Dx)Start: 06-26-2023 End: 62-31-5783Miwngi outpatient new 45 Brittny Corey MD Work Phone: Neurology Headache [place] FHCComment on above:Medication overuse headache (Primary Dx); Brain mass; Meningioma (HCC); Chronic daily headacheStart: 05-22-2023 End: 87-55-2416femvgzjqtuBL Jesus M Hoy Work Phone: [facility] Work Phone: Start: 05-22-2023 End: 68-57-7594Fqlabqa encounter procedureMD Jesus Hoy Work Phone: [facility]-Lab [facility] Pasotart: 14-52-4538Jjkeaqrjw encounterMoira Goodrich APRN.CNP Work Phone: [facility] Brain Tumor Fort WorthComment on above:TRIAGE Start: 05-06-2023 End: 54-04-3153oktntnecraAK Jesus M Hoy Work Phone: [facility] Work Phone: Start: 05-06-2023 End: 91-98-9753Ynosgtr encounter procedureMD Jesus Hoy Work Phone: [facility]-MRI [facility] [place] Work Phone: Start: 04-29-2023 End: 26-89-7049ctinpunymfGS Jesus M Hoy Work Phone: [facility] Work Phone: Start: 04-29-2023 End: 42-03-4107Addqgwm encounter procedureMD Jesus Hoy Work Phone: [facility] Work Phone: Start: 04-15-2023 End: 15-20-7607rccqnrvjdaBD Jesus M Hoy Work Phone: [facility] Work Phone: Start: 04-15-2023 End: 10-99-7510Endztkm encounter procedureMD Jesus Gonzalez Work Phone: [facility]-Lab [facility] CenterStart: 76-38-7643PypsarEcjgt P Mathai MD Work Phone: RheumatologyComment on above:Refill RequestStart: 47-28-1295OlpqvgOerwb P Mathai MD Work Phone: RheumatologyComment on above:Refill RequestStart: 04-06-2023 End: 81-18-5037Qeqsjxs encounter procedureMD Jesus Gonzalez Work Phone: [facility] Work Phone: Start: 03-31-2023 End: 39-66-0237iqvihsroyoFxppena Ditty Other [facility] [place] Other Start: 40-35-6838Mlprfhq encounter procedureCamsrinivas PattenyAUSTING GastroenterologyStart: 41-09-2159LptlftLrvhl P Mathai MD Work Phone: RheumatologyComment on above:Refill RequestStart: 65-66-1227TugtrkVgcyv P Mathai MD Work Phone: RheumatologyComment on above:Refill RequestStart: 12-17-2022 End: 13-02-0692oafbbghtmnFdlyuus [place] Other [facility] [place] Other Start: 80-74-6416Gnpypd outpatient visit 15 minutes Elyssa GomesMethod[facility] OrthopedicsStart: 16-48-1291xdkmzlezizPrabf P Mathai MD Work Phone: RheumatologyComment on above:FibroStart: 10-10-2022 End: 06-26-0447jcrlucpuztYA JESUS GONZALEZFacility:V1Dddef: 09-29-2022 End: 47-14-9590Ofufdwz encounter procedureSandrew Wood MD Work Phone: RheumatologyComment on above:Inflammatory arthritis (Primary Dx); Myalgia; FibromyalgiaStart: 02-69-7382Erjvcvmvn encounterSandrew Wood MD Work Phone: RheumatologyComment on above:Orders (Plaquenil)Start: 09-24-2022 End: 41-48-4281Lkahmxv encounter procedureMD Jesus Hoy Work Phone: [facility] Start: 09-24-2022 End: 15-30-3847ubtvnhatyyIO Jesus M Hoy Work Phone: [facility] Work Phone: Start: 35-93-7020Moxsml outpatient visit 15 minutes Elyssa CalveyFPG [facility] OrthopedicsStart: 16-28-8346Yofzbk outpatient visit 15 minutesColleen CalveyFPG [facility]aden OrthopedicsStart: 08-05-2022 End: 01-92-3673zpabwkhpyoSW Jesus M Hoy Work Phone: [facility] Work Phone: Start: 08-05-2022 End: 98-76-7630Dhixgli encounter procedureMD Jesus Hoy Work Phone: [facility] Start: 07-29-2022 End: 48-71-7614bphsfgqiduYB Jesus M Hoy Work Phone: [facility] Work Phone: Start: 07-29-2022 End: 25-06-9712Lhiqcvh encounter procedureMD Jesus Hoy Work Phone: [facility]-Lab Main CampusStart: 07-17-2022 End: 69-93-8725zyljxlzkjlKapdyhvo [place] Other [place] Other Start: 92-32-1533Smupdh outpatient visit 15 minutes Beti Edgardo [facility] OrthopedicsStart: 06-25-2022 End: 14-58-4673tdvqsxycrmZekhsxyy [place] Other [place] Other Start: 63-80-0829Dbsdzm outpatient visit 15 minutes Beti LinneaOmari [facility] OrthopedicsStart: 64-31-7287esumxkxwztZA JESUS HOYFacility:U4Pzayp: 05-06-2022 End: 27-42-8772Kvawkwb encounter procedureMD Jesus Hoy Work Phone: [facility] Start: 05-01-2022 End: 54-42-5850Ugkadsx encounter procedureMD Jesus Hoy Work Phone: [facility]-Lab Main CampusStart: 03-31-2022 End: 30-55-8450ryijljsffsCsbndkrk [place] Other [facility] [place] Other Start: 83-45-5279Xzbzsg outpatient visit 15 minutes Beti Edgardo [facility] OrthopedicsStart: 03-21-2022 End: 52-37-5715Luqnmpzlnj RecurringMD Jesus Hoy Work Phone: [facility]-Physical Therapy Bone CreekStart: 01-27-2022 End: 31-12-1145hujhwjepkyQgxucfvz [place] Other [facility] [place] Other Start: 09-80-7021Wffpou outpatient visit 15 minutes Beti Edgardo [facility] OrthopedicsStart: 01-24-2022 End: 61-54-9792ghdcvztngiVuzdlbd [place] Other [facility] [place] Other Start: 13-01-9461Pthsjg outpatient visit 15 minutes Elyssa JenkinsG [facility] OrthopedicsStart: 01-20-2022 End: 53-90-8825savgdfcnowIydmmwqk [place] Other noCiRBA Other Start: 69-95-3879Atxbci outpatient visit 15 minutes Beti YarbroughG [facility]ree OrthopedicsStart: 01-20-2022 End: 57-87-3534Cmhomfk encounter Andres Wood MD Work Phone: RheumatologyComment on above:Inflammatory arthritis (Primary Dx); MyalgiaStart: 12-24-2021 End: 18-98-2612tjbecypznxKrmpsbv [place] Other noCiRBA Other Start: 48-85-4527Jzxkhb follow up visit related to original pxColleen CalveyFPG [facility]aden OrthopedicsStart: 12-19-2021 End: 58-40-8266jajxaakqcuSibpyobu [place] Other [place] Other Start: 65-79-8897Jhiangnvx encounterZaireharmony Bowles FPG [facility] OrthopedicsStart: 12-02-2021 End: 63-71-8827tlixjjpwkmPwxaohre [place] Other noCiRBA Other Start: 86-21-5577Qxjvtj outpatient visit 15 minutes Beti YarbroughG [facility]ree OrthopedicsStart: 11-20-2021 End: 83-61-2637axpmcrjlwtOuekagi [place] Other noCiRBA Other Start: 27-83-9151Hergnf follow up visit related to original pxColleen CalveyFPG [facility] OrthopedicsStart: 10-08-2021 End: 38-45-5966lteiihbxsyGgzapvi [place] Other [employer] Other Start: 60-07-6404Korjqk outpatient visit 25 minutes Elyssamaxine [facility] OrthopedicsStart: 08-28-2021 End: 08-39-6955qkvnrrmcnjKnyrfev [place] Other noCiRBA Other Start: 48-29-3545Kjdaaz outpatient visit 25 minutes Elyssa Ferny [facility] OrthopedicsStart: 08-12-2021 End: 68-72-1638mnyduevgfyFthvjol Calvmary Other noCiRBA Other Start: 31-39-0466Pxvnvusrt encounterCollbryant [facility] OrthopedicsStart: 47-41-0296Drhuzi outpatient visit 15 minutesCojoe [facility] OrthopedicsStart: 78-21-9586Rfzbpw outpatient visit 15 minutesJeharmony [facility]iron OrthopedicsStart: 05-11-2017 End: 08-32-5107KfulohtphqCRAGKVX PHYSICIANFacility:[facility] Procedures DateProcedureProcedure DetailPerforming ClinicianStart: 35-80-0606QS pre/post mri xrayJesus Gonzalez MD Work Phone: [phone]-art: 63-12-0979ZP thoracic spine wo Cheryl Gonzalez MD Work Phone: Start: 20-64-3701dzpqepaxh - four radiographic images Jesus Gonzalez MDStart: 41-63-2301ruxxhu risk assessment and documentation, with a finding of moderate riskJesus Gonzalez MDStart: 35-75-1340jigzgartmlj counseling for control of dental diseaseDouglviviane Gonzalez MDStart: 26-09-1662wlqt hygiene instructionsJesus Gonzalez MDStart: 99-72-1432njgeuobveea - adultJesus Gonzalez MD Start: 33-69-3622Gnxx energy X-ray absorptiometryJesus Gonzalez MD Work Phone: Start: 61-76-9001PI of chest without contrastJesus Gonzalez MD Work Phone: [phone]-art: 40-93-4419VA scan of thyroidJesus Gonzalez MD Work Phone: Start: 20-00-9818Hztyh chest X-rayJesus Gonzalez MD Work Phone: [phone]-art: 69-43-0429Vwxtf X-ray of right shoulderJesus Gonzalez MD Work Phone: Start: 05-24-2025 End: 43-02-2961Tnwicjttltjvxryvtth acetateSusan Rice CNP Work Phone: Start: 03-13-2025 End: 53-92-5887Vaexsogjqilhc of current medicationsSusan Rice WHCNP Work Phone: Start: 03-13-2025 End: 73-67-7184Luwffgszvhrpdjmoupu acetateSusan Rice CNP Work Phone: Start: 43-84-9880Dfs brain brain stem w/o w/contrast materialPaama Pineda MD Work Phone: start: 68-34-9097Kafmxeoy screenPABLO RECINOSComment on above:Order Comment: Specimen Type: BLOOD SPECIMENOrdering Facility: [facility] Address:[address] [place] [address] Performed By: #### [id number] ####CC [facility] BLOOD BANKCLIA [id number] [place] [address] [place] AMERICAStart: 02-10-2025 Ultrasonography of bilateral kidneysJesus Gonzalez MD Work Phone: Start: 93-97-9967Dsgtql-up visitFollow UpSANDREW WOODStart: 09-38-3996Lywcy X-ray of right wristJesus Gonzalez MD Work Phone: Start: 75-42-1137Ufnih X-ray of left shoulderJesus Gonzalez MD Work Phone: Start: 52-45-5234Ykkozqmrc mammography of bilateral breastsDouglas Carlos MCGHEE Work Phone: Start: 92-42-0471XM scan of thyroidMD Jesus Hoy Work Phone: Start: 58-08-3383ZW pre/post mri xrayMD Jesus Hoy Work Phone: [phone]-art: 11-00-0286MA lumbar spine wo conMD Jesus Hoy Work Phone: Start: 34-43-2288QUB of cervical spine without contrastMD Jesus Hoy Work Phone: [phone]-art: 98-19-3679FGO of headMD Jesus Hoy Work Phone: Start: 04-29-2023 End: 71-69-3840Eipmihhfl mammography of bilateral breastsMD Jesus Hoy Work Phone: Start: 23-19-3828Gifctkmnahty gastric emptying studyMD Jesus Hoy Work Phone: Start: 50-88-7551Cnzxl X-ray of right wristMD Jesus Hoy Work Phone: [phone]-art: 17-11-0789Ypyri X-ray of right wristMD Jesus Hoy Work Phone: Start: 65-29-9667Jpryk cultureMD Jesus Hoy Work Phone: Start: 46-72-5014Cxqnn X-ray of right wristMD Jesus Hoy Work Phone: Start: 42-27-4577Krare depression screening assessment Zulema Wood MD Work Phone: Urine cultureMD Jesus Hoy Work Phone: Plan of Treatment DateCare ActivityDetailAuthorStart: 75-77-3126Mstghvgthy A1c nnmvsduwlntGfM4O [facility] Hospitaltart: 51-22-9369Qbdszrpklh, MandieBanner Rehabilitation Hospital Westjason [facility] Work Phone: Start: 03-24-8918LvhuwdvygjSt. [facility] Work Phone: Start: 06-29-2025 End: 43-53-5483Pjanfbq encounter klqgawgbs51/16/2025 1:40 PM EDT Office Visit Rheumatology [address] [place] [address] Zulema Wood MD [address] [address] 6 month follow upRheumatologyComment on above:6 month follow upStart: 84-23-4803GywtbhjlxhSt. [facility] Work Phone: Start: 06-22-2025 End: 24-57-2491Pcxgtfk encounter wgqkyxeum49/09/2025 2:20 PM EDT Office Visit Rheumatology [address] [place] [address] Zulema Wood MD [address] [address] 6 month follow upRheumatologyComment on above:6 month follow upStart: 00-76-2004Muatb X-ray of right shoulderXR shoulder RT min 2V*[facility] Hospitaltart: 85-43-0682RN Shoulder - right ViewsOhioHealth Hardin Memorial Hospitaltart: 05-24-2025 End: 89-50-7373PbbaPeak View Behavioral [facility] Work Phone: Start: 36-54-9467Avjkjytfl vaccinationDoctors Hospital Start: 04-12-2025 End: 93-24-3251knvmqxwtzr39/30/2025 7:00 AM EDT [facility] Neurology [address] [place] [address] Rachele Fenton, MARILEE.ENGINE LATHE SET UP OPERATOR TOOL [address] [place] [address] Tension headachesNeurologyComment on above:Tension headachesStart: 03-29-2025 End: 60-50-3769onepxxextv32/16/2025 10:30 AM EDT [facility] [place] [address] [place] [address] Erik Pineda MD [address] [place] [address] [facility] Tumor [place] WorthComment on above:postopStart: 03-13-2025 [facility] Work Phone: Start: 03-06-2025 End: 90-96-8174Ekricjk evaluation of patient and pjwgyv3403/06/2025 10:30 AM EDT Nurse Visit [facility] [place] [address] [place] [address] Shakila Phillips RN [address] [place] [address] postop [facility] Brain Tumor [place] WorthComment on above:postopStart: 03-02-2025 End: 88-54-7129Izvhrwdds to same day surgery fhhkzb6603/02/2025 1:00 PM EDT [facility] Neurosurgery [address] [address] Stephanie Moy, SEATING CAPTAIN.ENGINE LATHE SET UP OPERATOR TOOL [address] [place] [address] Surgical Pathology discussionNeurosurgery Comment on above:Surgical Pathology discussionStart: 02-20-2025 End: 15-41-9351Sutvkxunh to same day surgery hfjukz6602/20/2025 12:45 PM EDT - 02/20/2025 6:45 PM EDT Surgery Admitting [address] [place] [address] Erik Pineda MD [address] [place] [address] ORBITOCRANIAL TO ANT CRAN FOSSA W/ SUPRAORB RIDGE OSTEOTOMY & ELEV FRONT&TEMP LOBEAdmittingComment on above:ORBITOCRANIAL TO ANT CRAN FOSSA W/ SUPRAORB RIDGE OSTEOTOMY & ELEV FRONT&TEMP LOBEStart: 02-20-2025 End: 78-77-5462Fhkjeocdaqqlf ant cranial fossa w/o orbit exntjORBITOCRANIAL TO ANT CRAN FOSSA W/ SUPRAORB RIDGE OSTEOTOMY & ELEV FRONT&TEMP LOBE Intracranial meningioma (HCC) Preop testing 02/20/2025 12:45 PM EDC MAIN PAVILIONStart: 02-20-2025 End: 59-38-0007Tajyg/exc les base ant crnl fossa indrl w/wo grfRESECTION LESION BASE OF ANTERIOR CRANIAL FOSSA INTRADURAL W/ DURAL REPAIR Intracranial meningioma (HCC) Preop testing 02/20/2025 12:45 PM [facility]IN PAVILIONStart: 76-95-3759Uwaglqbwlq hospital visit by izpppsios46/09/2025 12:45 PM EDT Hospital Encounter Admitting [address] [place] [address] Erik Pineda MD [address] [place] [id number] Intracranial meningioma (HCC) [D32.0], Preop testing [Z01.818]AdmittingComment on above:Intracranial meningioma (HCC) [D32.0], Preop testing [Z01.818]Start: 02-20-2025 End: 19-67-3566Aeyqnwssk to same day surgery maojyl5302/20/2025 7:30 AM EDT - 02/20/2025 1:30 PM EDT Surgery Admitting [address] [place] [address] Erik Pineda MD [address] [place] [address] ORBITOCRANIAL TO ANT CRAN FOSSA W/ SUPRAORB RIDGE OSTEOTOMY & ELEV FRONT&TEMP LOBEAdmittingComment on above:ORBITOCRANIAL TO ANT CRAN FOSSA W/ SUPRAORB RIDGE OSTEOTOMY & ELEV FRONT&TEMP LOBEStart: 02-20-2025 End: 96-44-7562Hzahuccgxgybd ant cranial fossa w/o orbit exntjORBITOCRANIAL TO ANT CRAN FOSSA W/ SUPRAORB RIDGE OSTEOTOMY & ELEV FRONT&TEMP LOBE Intracranial meningioma (HCC) Preop testing 02/20/2025 7:30 AM [facility]INTE[facility] MAIN PAVILIONStart: 02-20-2025 End: 56-26-9582Roioa/exc les base ant crnl fossa indrl w/wo grfRESECTION LESION BASE OF ANTERIOR CRANIAL FOSSA INTRADURAL W/ DURAL REPAIR Intracranial meningioma (HCC) Preop testing 02/20/2025 7:30 AM [facility] MAIN PAVILIONStart: 00-68-2418Efzedutomi hospital visit by ryblahbjr84/09/2025 7:30 AM EDT Hospital Encounter Admitting [address] [place] [address] Erik Pineda MD [address] [place] [address] Intracranial meningioma (HCC) [D32.0], Preop testing [Z01.818]AdmittingComment on above:Intracranial meningioma (HCC) [D32.0], Preop testing [Z01.818]Start: 02-15-2025 End: 96-11-6914Jbrinbuos to same day surgery dlqavo6702/15/2025 2:30 PM EDT [facility] [place] [address] [place] [address] Erik Pineda MD [address] [place] [address] surgery discussion/ consent / MRI review [facility] Brain Tumor [place] WorthComment on above:surgery discussion/ consent / MRI reviewStart: 02-14-2025 End: 80-61-3380BKQAICW BLOOD TYPECONFIRM BLOOD TYPE Blood Bank Routine Pre-op evaluation Expected: 02/14/2025, Expires: 05/16/2025leveland ClinicComment on above:Expected: 02/14/2025, Expires: 05/16/2025Start: 02-14-2025 End: 70-38-4662Xhplxnxgie A1c in BloodHEMOGLOBIN A1C Lab Routine Pre-op evaluation Type 2 diabetes mellitus without complication, withoutlong-term current use of insulin (HCC) Expected: 02/14/2025, Expires: 05/16/2025[facility] Work Phone: comment on above:Expected: 02/14/2025, Expires: 05/16/2025Start: 02-14-2025 End: 37-57-4877Ahlfjsy encounter bwzugpwgs37/03/2025 9:20 AM EDT Appointment Radiology [address] [place] [address] MRI BRAIN WO/W IVCONRadiologyComment on above:MRI BRAIN WO/W IVCONStart: 02-14-2025 End: 55-03-7530wkbqiniopw95/03/2025 8:30 AM EDT Results Only [place] [facility] [address] [place] [address] LabsLorain [facility] LaboratoryComment on above:LabsStart: 02-14-2025 End: 75-59-6672Ghagezgpyx sawyscffqbyx21/03/2025 7:40 AM EDT PAT Pre Anesthesia [address] [facility] [place] [address] 2, Pacc [place] [address] [facility] [address] PRE OP CLEARANCEPre Anesthesia Comment on above:PRE OP CLEARANCEStart: 01-06-2025 End: 86-06-1716ngehqfenwp25/25/2025 8:45 AM EDT [facility] Neurology Headache [facility] [address] [place] [address] Rachele Fenton, SEATING CAPTAIN.ENGINE LATHE SET UP OPERATOR TOOL [address] [place] [address] I want to stop taking my medicine Neurology Headache The Medical Centeromment on above:I want to stop taking my medicineStart: 12-28-2024 End: 28-10-2196Ysjcmqs encounter nxbkhpqat52/16/2025 9:20 AM EDT Office Visit Rheumatology [address] [place] [address] Zulema Wood MD [address] [place] [address] 6 month follow upRheumatologyComment on above:6 month follow upStart: 49-53-0132Lqtvx X-ray of right wristXR wrist RT min 3V*[facility] Hospitaltart: 35-12-1548YW Wrist - right GE 3 ViewsOhioHealth Hardin Memorial Hospitaltart: 29-14-8274Mekyd X-ray of left shoulderXR shoulder LT min 2V*[facility] Hospitaltart: 09-30-8837FC Shoulder - left ViewsOhioHealth Hardin Memorial Hospitaltart: 01-01-2025Medicare Advantage Annual Wellness VisitMedicare Advantage Annual Wellness VisitOhio State Harding Hospitaltart: 05-30-2024 End: 93-22-8415Sgvwudp encounter /16/2024 9:40 AM EDT Office Visit Rheumatology [address] [place] [address] Zulema Wood MD [address] [facility]ENTERMiguel [facility]W[facility] [place] [address] Return in about 8 months (around 05/29/2024) for arthralgias, FM .RheumatologyComment on above:Return in about 8 months (around 05/29/2024) for arthralgias, FM .Start: 19-32-6711Fcpvv-19 Vaccine ( season)Covid-19 Vaccine ( season)[facility] Hospitaltart: 36-41-5283Fkscp-19 Vaccine ( season)Covid-19 Vaccine ( season)[facility] Hospitaltart: 24-61-8270Uosftrixj vaccinationOhio State Harding Hospitaltart: 04-04-2024 End: 13-58-7849Bvtpklptu to same day surgery ympfht3504/04/2024 7:30 AM EDT - 04/04/2024 2:30 PM EDT Surgery Admitting [address] [place] [address] Erik Pineda MD [address] [place] [address] ORBITOCRANIAL TO ANT CRAN FOSSA W/ SUPRAORB RIDGE OSTEOTOMY & ELEV FRONT&TEMP LOBEAdmittingComment on above:ORBITOCRANIAL TO ANT CRAN FOSSA W/ SUPRAORB RIDGE OSTEOTOMY & ELEV FRONT&TEMP LOBEStart: 04-04-2024 End: 99-19-2457Brhncjxwjdyme ant cranial fossa w/o orbit exntjORBITOCRANIAL TO ANT CRAN FOSSA W/ SUPRAORB RIDGE OSTEOTOMY & ELEV FRONT&TEMP LOBE Intracranial meningioma (HCC) Preop testing 04/04/2024 7:30 AM [facility]IN PAVILIONStart: 04-04-2024 End: 35-99-4266Yrswv/exc les base ant crnl fossa indrl w/wo grfRESECTION LESION BASE OF ANTERIOR CRANIAL FOSSA INTRADURAL W/ DURAL REPAIR Intracranial meningioma (HCC) Preop testing 04/04/2024 7:30 AM EDINTE[facility] MAIN PAVILIONStart: 25-11-6191Ttblrdmhjm hospital visit by ymacawuti82/22/2024 7:30 AM EDT Hospital Encounter Admitting [address] [place] [address] Erik Pineda MD [address] [place] [address] Intracranial meningioma (HCC) [D32.0]AdmittingComment on above:Intracranial meningioma (HCC) [D32.0]Start: 03-22-2024 End: 72-30-1168Qvcgkiy encounter procedurePre AnesthesiaComment on above:Preop, ORBITOCRANIAL TO ANT CRAN FOSSA W/ SUPRAORB RIDGE OSTEOTOMY & ELEV FRONT&TEMP LOBEPreop lab and nasal swabStart: 82-16-2226NMXLCCDH SCREENDIABETES SCREEN [facility] Hospitaltart: 20-47-8587Djkgyqii ScreeningDiabetes ScreeningOhio State Harding Hospitaltart: 02-05-2024 End: 38-77-3892gdsvpjvxmx05/24/2024 7:00 AM EDT [facility] Neurology Headache [facility] [address] [place] [address] Rachele Fenton, SEATING CAPTAIN.ENGINE LATHE SET UP OPERATOR TOOL [address] [place] [address] f/uNeurology Headache [place] FHCComment on above:f/uStart: 01-29-2024 End: 35-04-3833Tgoxbhg encounter procedureRADIO MRI LODI HOSPComment on above:R Sphenoid Wing MeningiomaStart: 01-21-2024 End: 17-84-0475asicxdbfyt88/09/2024 2:30 PM EDT [facility] [place] [address] [place] [address] Laron Lou DO, PhD [address] [facility] [address] [place] [address] Check up for headachesDuke [facility] Hospital Brain Tumor CenterComment on above:Check up for headachesStart: 01-06-6263Lrqdtdsrqj Health ScreeningBehavioral Health ScreeningOhio State Harding Hospitaltart: 13-45-0494Udissagdpx AssessmentDepression AssessmentCleOhioHealth Grady Memorial Hospitaltart: 80-56-3580Kxeoz-19 Vaccine () Covid-19 Vaccine ()[facility] Hospital[facility]: 13-36-5692Ruucfhymj vaccinationOhio State Harding Hospitaltart: 81-31-3331RDKZOGNWO (FIT-DNA)COLOGUARD (FIT-DNA)[facility] Hospitaltart: 49-05-2360HmkjdhleonsSPCJKWMQHHEOadrcngzy Clinic Start: 92-80-8192OKROQZRGHE CANCER SCREENINGCOLORECTAL CANCER SCREENINGCleOhioHealth Grady Memorial [facility]: 00-13-0056JJ COLONOGRAPHYCT COLONOGRAPHYCleOhioHealth Grady Memorial Hospitaltart: 75-04-9596ZYNHP OCCULT BLOODFECAL OCCULT BLOODOhio State Harding Hospitaltart: 2022 Lipid 1996 panel - Serum or PlasmaLipid ScreeningOhio State Harding Hospitaltart: 80-33-0056Pmowf panelLipid ScreeningOhio State Harding Hospitaltart: 13-27-8527JMZQJ SCREENLIPID SCREENCleOhioHealth Grady Memorial Hospitaltart: 61-29-0657Plqtkuqei for malignant neoplasm of colonOhio State Harding Hospitaltart: 35-39-1703XCNDIZGHRSHOBAVTVUGKMWBDLO [facility]: 81-55-0567NUETYMTRAQ ASSESSMENTDEPRESSION ASSESSMENT [facility]: 22-03-5802Fzfsm X-ray of right wristXR wrist RT min 3V* [facility]: 05-06-2022 End: 60-43-3036Sttcoay encounter procedureDeparted [facility] OrthoStart: 05-01-2022 End: 18-17-5657Axetqdg encounter procedureDepartSelect Medical Specialty [facility]tr-Lab Main CampusStart: 31-35-9484Moxqm depression screening assessmentDEPRESSION SCREENINGOhio State Harding Hospitaltart: 70-72-5028Awlgk microalbumin profileDTaP,Tdap,Td Vaccine (1 - Tdap)[facility]: 10-17-0042TDLQA-19 VACCINE (3 - Booster for Pfizer series)COVID-19 VACCINE (3 - Booster for Pfizer series)[facility]: 60-31-3763DBBBU-19 VACCINE (3 - Pfizer series)COVID-19 VACCINE (3 - Pfizer series)[facility]: 42-56-9627NVLFG-19 VACCINE (3 - Pfizer risk 4-dose series)COVID-19 VACCINE (3 - Pfizer risk 4-dose series)[facility]: 06-84-6617LMLHM-19 VACCINE (3 - Pfizer risk series)COVID-19 VACCINE (3 - Pfizer risk series)[facility] Start: 46-52-2370WwmdbzddablNbxamldvw ClinicStart: 74-23-5124Tmcovtlir for malignant neoplasm of breastOhio State Harding Hospitaltart: 10-37-4251JQS TESTINGHPV TESTINGOhio State Harding Hospitaltart: 91-74-4437Tnyysquhc for malignant neoplasm of cervixOhio State Harding Hospitaltart: 89-69-3162FDS TESTINGPAP TESTINGDoctors Hospital Start: 75-66-2980Xeospnnlp for malignant neoplasm of cervixDoctors Hospital Start: 97-50-6897Nkpjecfsw B Vaccine (1 of 3 - 19+ 3-dose series)Hepatitis B Vaccine (1 of 3 - 19+ 3-dose series)[facility] 1994 Pneumococcal vaccinationPneumococcal Vaccine (1 of 2 - PCV)[facility] Start: 46-43-7833SYZLTRVO VACCINE (1 of 2)SHINGRIX VACCINE (1 of 2)[facility]: 82-09-0372Qcofz microalbumin profileOhio State Harding Hospitaltart: 24-72-1680Uxijcq PCP Team Chronic Disease VisitAnnual PCP Team Chronic Disease VisitOhio State Harding Hospitaltart: 32-04-3724Eomezxr ScreeningAnxiety Screening [facility]: 46-12-8396Ypuezevlsc ScreeningDepression Screening [facility]: 92-65-7094Tpaoldhfw B surface antibody levelLDL CholesterolOhio State Harding Hospitaltart: 75-92-5601Vgeoxjwy foot examinationDiabetic Foot ExamOhio State Harding Hospitaltart: 71-51-0876Pozmtvhc screeningDilated Retinal Exam [facility]: 20-41-8148Uudzflxjr B screeningUrine Albumin:Creatinine RatioOhio State Harding Hospitaltart: 73-16-6741KFXWDICEBZFM (1 - PCV)PNEUMOCOCCAL (1 - PCV)[facility]: 10-14-6245Xgkgvtenwk A1c dwcwukjyhylGnM7MErndsuiiz ClinicStart: 86-29-3183YFUAYFEMY B (1 of 3 - 3-dose series)HEPATITIS B (1 of 3 - 3-dose series)[facility]: 93-39-0926Ulrczemmt B Vaccine (1 of 3 - 3- dose series)Hepatitis B Vaccine (1 of 3 - 3-dose series)[facility]: 66-27-7303Hqchhrors for malignant neoplasm of colonUniversity of Missouri Health Care End: 85-30-4845Kdzjsyz aminotransferase [Enzymatic activity/volume] in Serum or PlasmaALANINE AMINOTRANSFERASE / SGPT Lab Routine Inflammatory arthritis Every 3 months for 4 Occurrencesstarting 09/09/2024 until 09/[facility] Comment on above:Every 3 months for 4 Occurrences starting 09/09/2024 until 09/06/2025 End: 30-23-3123Gollpai aminotransferase [Enzymatic activity/volume] in Serum or PlasmaALANINE AMINOTRANSFERASE / SGPT Lab Routine Encounter for medication monitoring Every 3 months for 4 Occurrences starting 10/10/2024 until 10/10/2025 Doctors HospitalComment on above:Every 3 months for 4 Occurrences starting 10/10/2024 until 10/10/2025 End: 80-31-8289Plhjfflby aminotransferase [Enzymatic activity/volume] in Serum or PlasmaASPARTATE AMINOTRANSFERASE/SGOT Lab Routine Inflammatory arthritis Every 3 months for 4 Occurrencesstarting 09/09/2024 until 09/06/2025[facility] Work Phone: Comment on above:Every 3 months for 4 Occurrences starting 09/09/2024 until 09/06/2025 End: 84-65-8807Zucgzlynq aminotransferase [Enzymatic activity/volume] in Serum or PlasmaASPARTATE AMINOTRANSFERASE/SGOT Lab Routine Encounter for medication monitoring Every 3 months for 4 Occurrences starting 10/10/2024 until 10/10/2025 [facility] Work Phone: Comment on above:Every 3 months for 4 Occurrences starting 10/10/2024 until 10/10/2025acteria identified in Urine by CultureUrine [facility] End: 09-06-2025 reactive protein [Mass/volume] in Serum or PlasmaC-REACTIVE PROTEIN Lab Routine Inflammatory arthritis Every 3 months for 4 Occurrences starting 09/09/2024 until 09/06/2025leveland ClinicComment on above:Every 3 months for 4 Occurrences starting 09/09/2024 until 09/06/2025 End: 10-10-2025 reactive protein [Mass/volume] in Serum or PlasmaC-REACTIVE PROTEIN Lab Routine Encounter for medication monitoring Every 3 months for 4 Occurrencesstarting 10/10/2024 until 10/10/2025leveland ClinicComment on above: Every 3 months for 4 Occurrences starting 10/10/2024 until 10/10/2025 End: 69-50-9248JYS panel - Blood by Automated countCOMPLETE BLOOD COUNT Lab Routine Inflammatory arthritis Every 3 months for 4 Occurrences starting until 09/06/2025[facility] ClinicComment on above:Every 3 months for 4 Occurrences starting 09/09/2024 until 09/06/2025 End: 07-23-0973RNA panel - Blood by Automated countCOMPLETE BLOOD COUNT Lab Routine Encounter for medication monitoring Every 3 months for 4 Occurrences starting 10/10/2024 until 10/10/2025leveland ClinicComment on above:Every 3 months for 4 Occurrences starting 10/10/2024 until 10/10/2025 End: 88-50-0554Gutsqzcvsnl sedimentation rateSEDIMENTATION RATE, WESTERGREN Lab Routine Inflammatory arthritis Every 3 months for 4 Occurrences starting 09/09/2024 until 5C[facility] ClinicComment on above:Every 3 months for 4 Occurrences starting 09/09/2024 until 09/06/2025 End: 93-17-6586Tsduxrktblw sedimentation rateSEDIMENTATION RATE, WESTERGREN Lab Routine Encounter for medication monitoring Every 3 months for 4Occurrences starting 10/10/2024 until 6[facility] ClinicComment on above:Every 3 months for 4 Occurrences starting 10/10/2024 until 10/10/2025Insulin [Units/volume] in Serum or [facility] HospitalInsulin [Units/volume] in Serum or [facility] End: 45-92-0609BI Brain WO and W contrast IVMRI BRAIN WO/W IVCON Radiology Routine Benign neoplasm of meninges (HCC) 1 Occurrences starting 03/02/2025 until 04/01/2026[facility] Work Phone: Comment on above:1 Occurrences starting 03/02/2025 until 04/01/2026MR Skull base WO and W contrast IVMRI SKULL BASE WO/W IVCON Radiology Routine Benign neoplasm of meninges (HCC) 01/29/2024 1:56 PM EDT [facility] Work Phone: patient EducationRib fracture or bruised rib - ED discharge instructionsC[facility] Clinic [facility] Work Phone: Patient [facility] Work Phone: [facility] Immunizations Immunization DateImmunizationNotesCare DyrfoqcvTxokphpn39-37-5625wojciqgwt virus vaccine, unspecified formulationSt. [facility] 2 Work Phone: [facility] HospitalAtlwqz37-54-1176Wtivwaaup, injectable, Madin [place] Canine Kidney, preservative free, quadrivalentEstevan De La O NP Work Phone: [facility] CareKofjvmrdaw63-25-1696wnvlzqdwu virus vaccine, unspecified formulationFahad Corey MD Work Phone: [facility] HospitalTcexuq70-47-8433bloovjreo, injectable, quadrivalent, preservative freeEstevan De La O DISTRIBUTION CENTER ASSISTANT Work Phone: [facility] CareTymxlmmmqn73-27-4796euqysll and diphtheria toxoids, adsorbed, preservative free, for adult use (5 Lf of tetanus toxoid and 2 Lf of diphtheria toxoid)Estevan De La O DISTRIBUTION CENTER ASSISTANT Work Phone: [facility] CareMbdzexcmpn61-07-2247Tjracvu -40 mgBeti Bowles Other [employer] Other [id number] -40 mgBeti Bowles Other [employer] Other [id number]-67 mRNANika (IQzone)MD Jesus Gonzalez Work Phone: [facility]04-21-2021COVID-19 mRNANika (IQzone)MD Jesus Gonzalez Work Phone: [facility]03-04-2021Kenalog -40 mgBeti Bowles Other [employer] Other 10763033-08-5704Ublbqgndu, injectable, Madin [place] Canine Kidney, preservative free, quadrivalentEstevan De La O DISTRIBUTION CENTER ASSISTANT Work Phone: [facility] CareLtgzdfvlyp46-73-5009Gdf-XqlScprjnze [place] Other [employer] Other 06-589639-17-8459Weq-VndKkhruubz [place] Other [employer] Other 06-061098-67-8374Lyx-BlcUixkivfd [place] Other [employer] Other 05-401903-33-7073Scxnovo -40 mgJennifer [place] Other [employer] Other 05337801-60-5003nnsfjflki A vaccine, adult dosageEstevan De La O DISTRIBUTION CENTER ASSISTANT Work Phone: [facility] CareJrwllcxocg06-57-2327Klecteynkf InjectionJennifer [place] Other [employer] Other 11347164-60-5799Edrursvjuk InjectionJennifer Jelena Other [employer] Other 10-249568-06-9573Sqixdvk -40 mgJennifer [place] Other noCiRBA Other 10973857-96-3639npcqggkrt virus vaccine, unspecified formulationEstevan De La O DISTRIBUTION CENTER ASSISTANT Work Phone: [facility] CareTqzobuchwj53-62-9181Cyoqbce -40 mgJennifer [place] Other noWebLinc Tiragiu Other 03-221579-01-5709Xapygro -40 mgJennifer [place] Other noCiRBA Other 01691233-87-3148qhxnuztuz, injectable, quadrivalent, contains preservativeBeti Bowles Other [facility]12-17-2014influenza, injectable, quadrivalent, preservative Frederick De LaO DISTRIBUTION CENTER ASSISTANT Work Phone: [facility] [employer] Payers DatePayer CategoryPayerPolicy [id number] ([facility]) [id number] [id number] [id number] [id number] 2024Unknown2010Medicare MEDICARE MEDICARE A AND B [id number] 2009-Present [phone] [address] [address] [place] [address] [id number] 2010Medicare 1.2.840.33[id number] 2.0.1.911025.3.57[id number] 2.0.1.949060.3.57[id number] 2.840.1.526281.3.57[id number] 2.0.1.274485.3.57[id number] 2.0.1.866242.3.57[id number] 2.0.1.550294.3.57[id number] 2.0.1.923027.3.57[id number] 2.0.1.126283.3.579.[id number] 2.16.840.1.396957.3.579.2.390741-44-9185Ywvrtkg18044929 2..1.077823.3.579.2.286329-12-4678Hjjtwxk62637188 2..1.714764.3.579.2.137806-55-6601Dogtxhn6548017 2..1.228768.3.579.2.757907-75-9198Tkgckyo01507938 2..1.194625.3.579.2.716 [id number] 2..1.726036.19 [id number] [id number]/HFA/FAP [id number] 2..1.8[id number] 2..1.567207.3.579.2.531 Fflnqjg31125386 2..1.818371.3.579.2.199Qxfqwhl04314161 2..1.221801.3.579.2.034Omykavj41454509 2..1.202265.3.579.2.531 [id number] 2..1.065442.3.579.2.678Ilkengs77598293 2..1.701397.3.579.2.470Zwnzuor11477769 2..1.556686.3.579.2.531 [id number] 2.16.840.1.322424.3.579.2.989Ltnxfji08739509 2.16.840.1.699800.3.579.2.781Wuheooq91200423 2.16.840.1.029022.3.579.2.531 [id number] 2.16.840.1.212918.3.579.2.597Krsklov32321057 2.16.840.1.050548.3.579.2.531 Social History DateTypeDetailFacilityStart: 03-04-2021 End: 76-83-3419Fhewqyt smoking status NHISEx-smokerOhio State Harding Hospitaltart: 03-04-2021 End: 11-70-9454Zysqaai use and exposureSmokeless tobacco non-userOhio State Harding Hospitaltart: 73-59-9390Afw Assigned At BirthFemaleCMartin Memorial Hospitaltart: 01-10-2022 End: 58-90-9117Ycxgeyqg to SARS-CoV-2 (event)Not sureOhio State Harding Hospitaltart: 09-22-2022 End: 40-74-0419Xvh Assigned At BirthDoctors HospitalHistory of tobacco use Current smokerOhio State Harding Hospitaltart: 09-22-2022 End: 43-41-7062Xhbuech of Social functionOhio State Harding Hospitaltart: 61-91-2871Vktfd Depression Screening Oztsnsuztb1Dpfmpebve ClinicStart: 08-57-6780Vnlihk identity Identifies as female gender (finding)[facility]: 89-83-5402Onpywe orientationHeterosexual (finding)[facility]: 06-01-2023 End: 37-96-3680Ayshwkt intakeCurrent drinker of alcohol (finding)Doctors HospitalHistory of tobacco useCigarette SmokerNOKY HealthcareStart: 03-25-2023 Tobacco Comment>10 years since last smokedNOMS HealthcareStart: 03-25-2023 Alcohol Commentcaffeine: stackersNOMS HealthcareStart: 19-67-2396Qlj assigned at birthNot on fileNOMS HealthcareStart: 09-17-2024 End: 78-99-5754HfsMrbxej (finding)[facility] Hospitaltart: 34-41-9938Thcnleb CommentStarted 1994. Quit 2009. 1 ppdOhio State Harding Hospitaltart: 90-44-1515Lfalbnb Comment3-4 drinks on occasionOhio State Harding Hospitaltart: 03-13-2025 End: 54-26-6713Eccdxrs smoking status NHISUnknown if ever smokedBoys Town National Research Hospitaltart: 14-99-2955Gfzdsik intakeAlcohol Use [facility] Campustart: 13-65-8344Dprpvjn smoking status NHISNever smoked tobacco (finding)[facility] CenterNEGATED: Highlighted rowCleveland Clinic Foundation Medical Equipment Procedure CodeEquipment CodeEquipment Original TextEquipment IdentifierDates Start: 06-45-6615Iojay Duramatrix-[place]lay Plus Collagen 2x2in Dural Regeneration Membrane - [id number]_grfVpide: 21-41-2358Irpdo Bone 8 Hole Profile - [id number]: 09-04-1071Npdyq 3d Large Box Low Profile Titanium Bone 2x2 Hole 1.5mm Screw - [id number]: 57-42-3261Qojut Low Profile Titanium 12mm Bone 2 Hole Bar 1.5mm Screw Nonsterile - [id number]: 03-63-7596Czywf 10mm Medium Titanium [place] Hole Low Profile Tab 1.5mm Screws - [id number]: 05-46-9905Ekqxj Bone Buckner Neuro 3 4mm 1.5mm Self Drill Axial Stability Latex - [id number]: 80-30-1241Ejstngwze Neuro Axs Neuro Screw Disc Pre-Loaded 1.5mm X [id number] Start: 02-20-2025 Clinical Notes 03-04-2021 to 06-22-2025 Note Date & WpdeToodEqslggmw03-60-7009 NoteHNO ID: [id number] Author: ZULEMA WOOD MD Service: ? Author Type: Physician Type: Progress Notes Filed: 06/22/2025 14:38 Note Text: Kourtney Novak is a 47 year old female who presents for follow up: [facility] elevated crp Negative RF, CCP, DWAYNE PREVIOUS DIAG arthralgias, FM, COPD Meningioma- due to have surgery in future INTERVAL HISTORY since last visit, had few flare ups, went to Urgent care and given toradol injections which helped. Also took muscle relaxants and steroids Today achy all over Continues to be on plaquenil and feels [...] SURG Bilateral methocarbamol (ROBAXIN) 500 mg tablet TAKE 1 TABLET BY MOUTH TWICE A DAY NEEDED DULoxetine DR (CYMBALTA) 30 mg capsule TAKE 1 CAPSULE BY MOUTH EVERY DAY ALONG WITH THE 60MG CAPSULE TO EQUAL 90MG A DAY hydrOXYchloroQUINE (PLAQUENIL) 200 mg tablet TAKE 1 TABLET BY MOUTH TWICE A DAY DULoxetine (CYMBALTA) 60 mg capsule TAKE 1 CAPSULE BY MOUTH EVERY DAY etodolac (LODINE) 400 mg tablet TAKE 1 TABLET BY MOUTH TWICE A DAY NEEDED predniSONE (DELTASONE) 5 mg tablet TAKE 1 TO 2 TABLETS BY MOUTH EVERY DAY senna-docusate (SENNA-S) 8.6-50 mg per tablet Take 1 tablet by mouth two times a day as needed for constipation. mirabegron (MYRBETRIQ) 50 mg Tb24 Take 50 mg by mouth once daily. ondansetron orally disintegrating (ZOFRAN ODT) 4 mg disintegrating tablet Take 4 mg by mouth every 8 hours as needed. levothyroxine (SYNTHROID) 50 mcg tablet Take 50 mcg by mouth daily before breakfast. benzonatate (TESSALON PERLES ORAL) budesonide (PULMICORT) 1 [...] mg tablet pioglitazone (ACTOS) 15 mg tablet nortriptyline (PAMELOR) 10 mg capsule Take 1 capsule by mouth daily at bedtime. acetaminophen (TYLENOL) 325 mg tablet 2 tablets by ORAL/FEEDING TUBE route every 4 hours as needed for pain. medroxyPROGESTERone (DEPO-PROVERA) 150 mg/mL injection Inject 150 mg intramuscularly every 12 weeks. simvastatin (ZOCOR) 20 mg tablet Take 20 mg by mouth once daily. FAMILY HISTORY Problem Relation Age of Onset Seizures Brother Social History Tobacco Use Smoking status: Former Smokeless tobacco: Never Tobacco comments: Started 1994. Quit 2009. 1 ppd Vaping Use Vaping status: Never Used Substance Use Topics Alcohol use: Yes Comment: 3-4 drinks on occasion Drug use: Never BP 138/77 Pulse 86 Ht 165.1 cm (5' 5 ) Wt 113.4 kg (250 lb) BMI 41.60 kg/m? PE; Well built and nourished. Pleasant [...] is in the midline. There are no (more content not included)...[facility]10-06-2025 [facility] [address] [place] [address] CT Scan Report Signed Patient: Kourtney Novak MR#: [id number] : 1975 Acct:[id number] Age/Sex: 49 / F ADM Date: 5 Loc: CT Room: Type: [facility] Attending Dr: Jesus Gonzalez MD Copies to: Jesus Gonzalez MD~ Ordering Provider: Jesus Gonzalez MD Date of Service: 06/19/25 CT/CT chest wo con: R07.89 CT CHEST WITHOUT IV CONTRAST: CLINICAL HISTORY: Right-sided chest wall/rib pain for 3 weeks, no known injury COMPARISON: None TECHNIQUE: Spiral images were obtained through the chest without IV contrast. This CT exam was performed using one or more following dose reduction techniques: Automated exposure control, adjustment of the mA and/or kV accordingto patient size, or use of iterative reconstruction technique. FINDINGS: Mediastinum:No pericardial effusion. No adenopathy. Lungs:No focal opacity effusion or pneumothorax. Abd: Fatty infiltration liver. [] Soft tissues/Bones: [] Right eighth lateral rib fracture with callus formation subacute. CT/CT chest wo con IMPRESSION: Subacute healing right eighth rib fracture. Impression dictated by: Lincoln Hoffmann M.D. 06/19/2025 11:19 PM Dictation Location: [place] [address] Transcribed By: [facility] 06/19/25 4244 Dictated By: Lincoln Hoffmann MD 06/19/252314 Signed By: 06/19/252318 [facility] Work Phone: [phone] 800-531609-30-2025 Radiology Diagnostic [facility] [address] [place], [place] [address] Ultrasound Report Signed Patient: Kourtney Novak MR#: [id number] : 1975 Acct:[id number] Age/Sex: 49 / F ADM Date: 5 Loc: Room: Type: [facility] Attending Dr: Jesus Gonzalez MD Ordering Provider: Jesus Gonazlez MD Date of Service: 06/13/25 US/US thyroid: E04.1 Copies to: Jesus Gonzalez MD~ Thyroid Ultrasound HISTORY: Nontoxic single thyroid nodule COMPARISON: 02/15/2024 The RIGHT lobe measures 3.4 x 1.4 x 1.6cm. LEFT lobe measures 3.5 x 1.5 x 1.6 cm. Isthmus has an AP dimension of 0.3cm. Left hypoechoic 11 mm nodule redemonstrated. Unchanged. No new nodule. Heterogeneous thyroid parenchyma.. No microcalcifications identified. Symmetric blood flow of the thyroid gland identified. US/US thyroid IMPRESSION: Stable 11 mm left thyroid nodule. No new or enlarging nodule. Impression dictated by: George Gray M.D. 06/13/2025 10:29 PM Dictation Location: [place] [address] Tech: Tana Fela Transcribed By: GRACIE 06/13/252228 Dictated By: George Gray DO 06/13/252225 Signed By: 06/13/252228 [facility]09-23-2025 Telephone encounter Note* Telephone Encounter - Lamar Dorsey NP - 06/06/2025 9:25 AM EDT Please [...] deformities. No distinct acute displaced rib fracture. [facility] CareBpadtggppl89-95-1909 Miscellaneous Notes* Telephone Encounter - Lamar Dorsey NP - 06/06/2025 9:25 AM EDT Please [...] acute displaced rib fracture. documented in this encounterUniversity of Missouri Health CareRpzmrkfbif34-90-9254 History of Present illness Narrative* Lamar Dorsey NP - 06/05/2025 5:40 PM EDT Images from the original note were not included. [address] [facility], [address] [facility], [address] P: [phone] F: [phone] HPI Historian of HPI: patient Kourtney Novak is a 49 y.o. female who presents today to the Urgent Care with the following complaints and denials due right rib pain which has been present for 2 week(s). Pt states she thought she pulled a muscle on the right side of her ribs. Pt denies any falls or injuries to the right side of ribs. Pt rates pain an 8/10 today. C/O Denies Symptom Comments [] [x] swelling [x] [] tenderness [] [x] erythema [] [x] tingling [] [x] numbness [x] [] Pain radiation [x] [] Weakness [x] [] Decreased ROM [] [x] Trauma Additional Comments: pt has taken robaxin OTC medication with relief Pt admits to cold application to the affected area ROS A complete system ROS was performed and negative aside from the pertinent positives noted in the HPI and PE. Visit Vitals BP 142/90 (BP Location: Left arm, Patient Position: Sitting, BP Cuff Size: Large adult) Pulse 88 Temp 98.7 F (Oral) Resp 20 Wt 254 lb SpO2 99% BMI 42.27 kg/m Smoking Status Former BSA 2.3 m PHYSICAL EXAM Physical Exam Vitals reviewed. Constitutional: General: She is not in acute distress. Appearance: Normal appearance. HENT: Head: Normocephalic and atraumatic. Nose: Nose normal. Mouth/Throat: Mouth: Mucous membranes are moist. Pharynx: Oropharynx is clear. Eyes: Extraocular Movements: Extraocular movements intact. Conjunctiva/sclera: Conjunctivae normal. Pupils: Pupils are equal, round, and reactive to light. Cardiovascular: Rate and Rhythm: Normal rate and regular rhythm. Pulses: Normal pulses. Heart sounds: Normal heart sounds. Pulmonary: Effort: Pulmonary effort is normal. No respiratory distress. Breath sounds: Normal breath sounds. No wheezing, rhonchi or rales. Chest: Chest wall: Tenderness present. Musculoskeletal: General: Normal range of motion. Cervical back: Normal range of motion and neck supple. Skin: General: Skin is warm and dry. Capillary Refill: Capillary refill takes less than 2 seconds. Findings: No rash. Neurological: General: No focal deficit present. Mental Status: She is alert and oriented to person, place, and time. Psychiatric: Mood and Affect: Mood normal. Behavior: Behavior normal. Thought Content: Thought content normal. Judgment: Judgment normal. TREATMENT PLAN 1. Rib pain on right side (Primary) Pt here today for evaluation of rib cage pain on right that has been present for 2 weeks. She states she thought she pulled a muscle on the right side of her ribs after cleaning and scrubbing out hercupboards. Pt denies any falls or injuries to the right side of ribs. Pt rates pain an 8/10 today. She feels the pain is getting worse and not better . She is unsure if this is related to her fibromyalgia or a pulled muscle in her ribs . Reports pain is worse with movement and taking a deep breath. She is in no acute distress. LS clear, diminished on exam. Sp02 99% on room air. She is agreeableto x ray today. - XR ribs 2 views right w chest anteroposterior; Future - predniSONE (Deltasone) 20 MG tablet; Take 3 tabs for 2 days, 2 tabs for 2 days, 1 tab for 2 days,1/2 tab for 2 days then stop Dispense: 13 tablet; Refill: 0 - ketorolac (Toradol) injection 60 mg 2. Sprain of costal cartilage, initial encounter Pre-still interp negative for acute rib fractures. Signs/symptoms and red flags of when to seek emergent medical attention were discussed. She expressed an understanding. XR RESULT: No consolidation, pleural effusion, or pneumothorax. Normal cardiomediastinal silhouette. Chronic appearing right sixth and seventh rib deformities. No distinct acute displaced rib fracture. Degenerative changes. Mild S-shaped scoliosis in the spine. Surgical clips projecting over the right upper hemithorax. IMPRESSION: Chronic appearing right sixth and seventh rib deformities. No distinct acute displaced rib fracture. See telephone encounter documented in this encounterUniversity of Missouri Health [id number] Evaluation note* Diagnosis Onset Date Resolution Status Admit Date Tear of right supraspinatus tendon acuteSeptember 2024 1:21pm [facility] Work Phone: [phone]) 568-737009-10-2025 Evaluation note* Type Assessment Date assessment Encounter for Depo-Provera contr aception [facility] Work Phone: [phone] 675-487709-09-2025 History of Present illness Narrative* Yola Wilburn NP - 05/23/2025 1:20 PM EDT Images from the original note were not included. [address], [address] [facility], [address] P: [phone] F: [phone] HPI Historian of HPI: patient Kourtney Novak [...] (Toradol) injection 60 mg documented in this encounterUniversity of Missouri Health [id number] Telephone encounter Note* Telephone Encounter - Michelle Gifty - 05/18/2025 3:47 PM EDT Physician: Eliceo Call from pharmacy requesting refill. Please E-Scribe Last OV: with Eliceo Future OV: Not Scheduled. Requested Prescriptions Pending Prescriptions Disp Refills methocarbamol (ROBAXIN) 500 mg tablet [Pharmacy Med Name: METHOCARBAMOL 500 MG TABLET] 45 tablet 2 Sig: TAKE 1 TABLET BY MOUTH TWICE A DAY NEEDED Pharmacy Name: [facility]09-04-2025 Miscellaneous Notes* Telephone Encounter - Gifty [...] [facility]acy [facility]: [facility] in this encounterDo[facility] Telephone encounter Note * Telephone Encounter - La Nena Waterman LPN - 04/26/2025 9:34 AM EDT Eye exam was completed and received 12/20/2024. [facility] Miscellaneous Notes* Telephone Encounter - La Nena Waterman LPN - 04/26/2025 9:34 AM EDT Eye exam was completed and received 12/20/2024. * Telephone Encounter - Zulema Wood MD - 04/26/2025 8:38 AM EDT She needs an eye exam if she wants future refills. The following approved medication requests have been transmitted electronically. Requested Prescriptions Signed Prescriptions Disp Refills hydrOXYchloroQUINE (PLAQUENIL) 200 mg tablet 60 tablet 2 Sig: TAKE 1 TABLET BY MOUTH TWICE A DAY Authorizing Provider: ZULMEA WOOD MD * Telephone Encounter - Alisha Paniagua RN - 04/25/2025 9:15 AM EDT Images from the original note were not included. Most recent Rheumatology visit: 12/28/2024 (with Zulema Wood) Last Bone Density on file: None on file Rheumatology Care Team: None on file Recent Office Visits - This Specialty 12/28/2024 Inflammatory arthritis Rheumatology Zulema Wood MD 05/30/2024 Inflammatory arthritis Rheumatology Zulema Wood MD 09/28/2023 Inflammatory arthritis Rheumatology Zulema Wood MD Upcoming Rheumatology Appointments - Next 365 Days Visit Type Date Time Department [facility] 06/22/2025 2:20 PM [facility] Last Ophthalmology Check for Plaquenil (Hydroxychloroquine) [...] months 09/06/25 09/09/24 02/14/25 Auth. provider: Zulema Wood MD Assoc. diagnoses: Inflammatory arthritis ALANINE AMINOTRANSFERASE / SGPT [SQALT] 3/4 Every 3 months 09/06/25 09/09/24 02/14/25 Auth. provider: Zulema Wood MD Assoc. diagnoses: Inflammatory arthritis COMPLETE BLOOD COUNT [SQCBC] 3/4 Every 3 months 09/06/25 09/09/24 02/14/25 Auth. provider: Zulema Wood MD Assoc. diagnoses: Inflammatory arthritis SEDIMENTATION RATE, WESTERGREN [SQWSR] 3/4 Every 3 months 09/06/25 09/09/24 02/14/25 Auth. provider: Zulema Wood MD Assoc. diagnoses: Inflammatory arthritis C-REACTIVE PROTEIN [SQCRP] 3/4 Every 3 months 09/06/25 09/09/24 02/14/25 Auth. provider: Zulema Wood MD Assoc. diagnoses: Inflammatory arthritis ASPARTATE AMINOTRANSFERASE/SGOT [SQAST] 3/4 Every 3 months 10/10/25 10/10/24 02/14/25 Auth. provider: Zulema Wood MD Assoc. diagnoses: Encounter for medication monitoring ALANINE AMINOTRANSFERASE / SGPT [SQALT] 3/4 Every 3 months 10/10/25 10/10/24 02/14/25 Auth. provider: Zulema Wood MD Assoc. diagnoses: Encounter for medication monitoring COMPLETE BLOOD COUNT [SQCBC] 3/4 Every 3 months 10/10/25 10/10/24 02/14/25 Auth. provider: Zulema Wood MD Assoc. diagnoses: Encounter for medication monitoring SEDIMENTATION RATE, WESTERGREN [SQWSR] 3/ Every 3 months 10/10/25 10/10/24 02/14/25 Auth. provider: Zulema Wood MD Assoc. diagnoses: Encounter for medication monitoring C-REACTIVE PROTEIN [SQCRP] 3/ Every 3 months 10/10/25 10/10/24 02/14/25 Auth. provider: Zulema Wood MD Assoc. diagnoses: Encounter for medication monitoring Open Future (Single Instance) Lab Orders None Last eye exam 12/20/24 documented in this encounterDoctors Hospital08-13-2025 Telephone encounter Note * Telephone Encounter - Zulema Wood MD - 04/26/2025 8:38 AM EDT She needs an eye exam if she wants future refills. The following approved medication requests have been transmitted electronically. Requested Prescriptions Signed Prescriptions Disp Refills hydrOXYchloroQUINE (PLAQUENIL) 200 mg tablet 60 tablet 2 Sig: TAKE 1 TABLET BY MOUTH TWICE A DAY Authorizing Provider: ZULEMA WOOD MD [facility]08-12-2025 Telephone encounter Note* Telephone Encounter - Alisha Paniagua RN - 04/25/2025 9:15 AM EDT Images from the original note were not included. Most recent Rheumatology visit: 12/28/2024 (with Zulema Wood) Last Bone Density on file: None on file Rheumatology Care Team: None on file Recent Office Visits - This Specialty 12/28/2024 Inflammatory arthritis Rheumatology Zulema Wood MD 05/30/2024 Inflammatory arthritis Rheumatology Zulema Wood MD 09/28/2023 Inflammatory arthritis Rheumatology Zulema Wood MD Upcoming Rheumatology Appointments - Next 365 Days Visit Type Date Time Department [facility] MED[facility] 06/22/2025 2:20 PM [facility] Last Ophthalmology Check for Plaquenil (Hydroxychloroquine) [...] months 09/06/25 09/09/24 02/14/25 Auth. provider: Zulema Wood MD Assoc. diagnoses: Inflammatory arthritis ALANINE AMINOTRANSFERASE / SGPT [SQALT] 3/4 Every 3 months 09/06/25 09/09/24 02/14/25 Auth. provider: Zulema Wood MD Assoc. diagnoses: Inflammatory arthritis COMPLETE BLOOD COUNT [SQCBC] 3/4 Every 3 months 09/06/25 09/09/24 02/14/25 Auth. provider: Zulema Wood MD Assoc. diagnoses: Inflammatory arthritis SEDIMENTATION RATE, WESTERGREN [SQWSR] 3/4 Every 3 months 09/06/25 09/09/24 02/14/25 Auth. provider: Zulema Wood MD Assoc. diagnoses: Inflammatory arthritis C-REACTIVE PROTEIN [SQCRP] 3/4 Every 3 months 09/06/25 09/09/24 02/14/25 Auth. provider: Zulema Wood MD Assoc. diagnoses: Inflammatory arthritis ASPARTATE AMINOTRANSFERASE/SGOT [SQAST] 3/4 Every 3 months 10/10/25 10/10/24 02/14/25 Auth. provider: Zulema Wood MD Assoc. diagnoses: Encounter for medication monitoring ALANINE AMINOTRANSFERASE / SGPT [SQALT] 3/4 Every 3 months 10/10/25 10/10/24 02/14/25 Auth. provider: Zulema Wood MD Assoc. diagnoses: Encounter for medication monitoring COMPLETE BLOOD COUNT [SQCBC] 3/4 Every 3 months 10/10/25 10/10/24 02/14/25 Auth. provider: Zulema Wood MD Assoc. diagnoses: Encounter for medication monitoring SEDIMENTATION RATE, WESTERGREN [SQWSR] 3/4 Every 3 months 10/10/25 10/10/24 02/14/25 Auth. provider: Zulema Wood MD Assoc. diagnoses: Encounter for medication monitoring C-REACTIVE PROTEIN [SQCRP] 3/4 Every 3 months 10/10/25 10/10/24 02/14/25 Auth. provider: Zulema Wood MD Assoc. diagnoses: Encounter for medication monitoring Open Future (Single Instance) Lab Orders None Last eye exam 12/20/24 [facility]07-30[facility] History of Present illness Narrative* Rachele Fenton APRN.ENGINE LATHE SET UP OPERATOR TOOL - 04/12/2025 7:00 AM EDT Headache Center [...] visit. Either the patient or their legal welding equipment sales representative has been informed of the [...] Prescription for 10 mg nortriptyline sent to [facility], 2-month supply provided to accommodatetapering [...] these with the patient: yes Rachele Fenton APRN.ENGINE LATHE SET UP OPERATOR TOOL HEADACHE SCORES: 02/01/2024 12/30/2024 04/10/2025 Headache Questions [...] soft tissue component identified in the orbit. Client Relations Specialist: GUANACO Transcribe Date/Time: Jan 31 2024 3:33P [...] articulation, and clear,coherent, and relevant. Short and snf memory, cognition and general fund of knowledge [...] Service: Virtual Visit 20 minutes Recording using ambient Cmed software for draft documentation of the visit was discussed with the patient/authorized welding equipment sales representative; all questions welcomed and answered. Patient/authorized welding equipment sales representative agreed to proceed Rachele Fenton APRN.[facility] Headache Section [facility] April 12, 2025 documented in this encounterDoctors Hospital07-30-2025 NoteHNO ID: [id number] Author: RACHELE FENTON APRN.[facility] Service: ? Author Type: Nurse Practitioner Type: [...] visit. Either the patient or their legal welding equipment sales representative has been informed of the [...] Prescription for 10 mg nortriptyline sent to [facility], 2-month supply provided to accommodate [...] by mouth twice daily. (more content not included)...[facility]07-16-2025 History of Present illness Narrative* Erik Pineda MD - 03/29/2025 10:30 AM EDT Images from the original note were not included. SECTION OF SKULL BASE SURGERY MINIMALLY INVASIVE CRANIAL BASE & PITUITARY SURGERY PROGRAM [facility] TELEMEDICINE FOLLOW-UP VISIT This is a virtual visit. It required patient-provider interaction for the medical decision making as documented below. Kourtney Novak has consented for this telemedicine encounter. I have communicated my name and active licensure. The patient's identity and physical location were verified at the time of this visit. Either the patient or their legal welding equipment sales representative has been informed of the risks and benefits of -- and alternatives to -- treatment through a remote evaluation and consents to proceed with the evaluation remotely. CC: Jesus Gonzalez MD, Stephanie Moy CNP Assessment: In summary, Kourtney Novak [...] dyeing. - Follow-up in 6 months with Stephanie Moy CNP to monitor for recurrence; discussed [...] meningioma, WHO grade 1 documented in this encounterDoctors Hospital07-16-2025 NoteHNO ID: [id number] Author: ERIK PINEDA MD Service: ? Author Type: Physician Type: Progress Notes Filed: 03/29/2025 10:48 Note Text: SECTION OF SKULL BASE SURGERY MINIMALLY INVASIVE CRANIAL BASE AND PITUITARY SURGERY PROGRAM [facility] TELEMEDICINE FOLLOW-UP VISIT This is a virtual visit. It required patient-provider interaction for the medical decision making as documented below. Kourtney Novak has consented for this telemedicine encounter. I have communicated my name and active licensure. The patient's identity and physical location were verified at the time of this visit. Either the patient or their legal welding equipment sales representative has been informed of the risks and benefits of -- and alternatives to -- treatment through a remote evaluation and consents to proceed with the evaluation remotely. CC: Jesus Gonzalez MD, Stephanie Moy CNP Assessment: In summary, Kourtney Novak [...] dyeing. - Follow-up in 6 months with Stephanie Moy CNP to monitor for recurrence; discussed [...] (SYNTHROID) 50 mcg tablet (more content not included)...[facility]07-14-2025 Telephone encounter Note* Telephone Encounter - Chana Rose - 03/27/2025 9:35 AM EDT Hospital Discharge Summary faxed to Dr. Hoy. Saenz [facility]07-14-2025 Miscellaneous Notes* Telephone Encounter - Chana Rose - 03/27/2025 9:35 AM EDT Hospital Discharge Summary faxed to Dr. Hoy. Saenz documented in this encounterDoctors Hospital07-09-2025 Evaluation note* Diagnosis Onset Date Resolution Status Admit Date Osteochondrosis of lunate of right wrist acuteJuly 2024 3:55pmRight wrist painacuteJuly 2024 3:55pm [facility] Work Phone: 1(472) 343-872907-09-2025 Evaluation note* Diagnosis Onset Date Resolution Status Admit Date Osteochondrosis of lunate of right wrist acuteJuly 2024 3:55pmRight wrist painacuteJuly 2024 3:55pmTear of right supraspinatus tendonacuteSeptember 2024 1:21pm [facility] Work Phone: 1(948) 595-624207-07-2025 Telephone encounter Note* Telephone Encounter - Izabela Patton MD - 03/20/2025 10:26 AM EDT Picture uploaded in [employer] reviewed. Wound is healing appropriately. Will complete the 10 days dose of Bactrim. Prescribed accordingly. [facility]07-07-2025 Miscellaneous Notes* Telephone Encounter - Izabela Patton MD - 03/20/2025 10:26 AM EDT Picture uploaded in [employer] reviewed. Wound is healing appropriately. Will complete the 10 days dose of Bactrim. Prescribed accordingly. documented in this encounterDoctors Hospital07-02-2025 NoteHNO ID: [id number] Author: IZABELA PATTON MD Service: ? Author Type: Fellow Type: Progress Notes Filed: 03/15/2025 12:44 Note Text: SECTION OF SKULL BASE SURGERY MINIMALLY INVASIVE CRANIAL BASE AND PITUITARY SURGERY PROGRAM [facility] CC: Patient Care Team: Jesus Gonzalez MD as PCP - General (Family Medicine) Jesus Gonzalez MD as Referring (Family Medicine) Jesus Gonzalez MD as Referring (Family Medicine) ASSESSMENT: [...] changes. PLAN: - Send a picture in [employer] on Thursday. - Bactrim DS x 5 [...] elevates symmetrically and uvul (more content not included)...[facility]07-02-2025 History of Present illness Narrative* Izabela Patton MD - 03/15/2025 12:31 PM EDT Images from the original note were not included. SECTION OF SKULL BASE SURGERY MINIMALLY INVASIVE CRANIAL BASE & PITUITARY SURGERY PROGRAM [facility] CC: Patient Care Team: Jesus Gonzalez MD as PCP - General (Family Medicine) Jesus Gonzalez MD as Referring (Family Medicine) Jesus Gonzalez MD as Referring (Family Medicine) ASSESSMENT: [...] changes. PLAN: - Send a picture in [employer] on Thursday. - Bactrim DS x 5 [...] REVIEW: Imaging: None for this visit. * Bess Do MA - 03/15/2025 12:02 PM EDT Additional intake questions: Has the patient had fever, nausea, vomiting, diarrhea, constipation, fatigue for > 1 week? No Does the patient have a decreased appetite? No Does patient want to see a Salesperson Floor Coverings? No (yes to any of above refer patient to schedulers for dietitian appointment) ) Does patient have any new or increased numbness or tingling of extremities? No Is patient interested in fertility information? No Does patient need any prescription refills? No Does patient have an advanced directive in place? No, Patient referred to Resource Center documented in this encounterDoctors Hospital07-02-2025 Telephone encounter Note * Telephone Encounter - Izabela Patton MD - 03/15/2025 12:17 PM EDT Ordered Bactrim. [facility]07-02-2025 Miscellaneous Notes* Telephone Encounter - Izabela Patton MD - 03/15/2025 12:17 PM EDT Ordered Bactrim. documented in this encounterDoctors Hospital07-02-2025 NoteHNO ID: [id number] Author: BESS DO MA Service: ? Author Type: Tutor Coordinator Type: Progress Notes Filed: 03/15/2025 12:44 Note Text: Additional intake questions: Has the patient had fever, nausea, vomiting, diarrhea, constipation, fatigue for > 1 week? No Does the patient have a decreased appetite? No Does patient want to see a Salesperson Floor Coverings? No (yes to any of above refer patient to schedulers for dietitian appointment) ) Does patient have any new or increased numbness or tingling of extremities? No Is patient interested in fertility information? No Does patient need any prescription refills? No Does patient have an advanced directive in place? No, Patient referred to Resource Center Electronically Signed By: Bess Do [facility] 03-13-2025 Telephone encounter Note* Telephone Encounter [...] A DAY NEEDED Pharmacy Name: [facility]06-30-2025 Miscellaneous Notes* Telephone Encounter - Gifty Martinez - 03/13/2025 3:09 PM EDT Physician: Eliceo Call from pharmacy requesting refill. Please E-Scribe Last OV: 01/06/2025 with Hamdan Future OV: Not Scheduled. Requested Prescriptions Pending Prescriptions Disp Refills methocarbamol (ROBAXIN) 500 mg tablet [Pharmacy Med Name: METHOCARBAMOL 500 MG TABLET] 45 tablet 2 Sig: TAKE 1 TABLET BY MOUTH TWICE A DAY NEEDED [facility]: [facility] documented in this encounterDoctors Hospital06-30-2025 Evaluation note* Type Assessment Date assessment Encounter for Depo-Provera contr aception [facility] Work Phone: [phone] Telephone encounter Note* Telephone Encounter - Shakila Phillips RN - 03/08/2025 4:18 PM EDT Images from the original note were not included. [facility]06-[facility] Miscellaneous Notes* Telephone Encounter - Shakila Phillips RN - 03/08/2025 4:18 PM EDT Images from the original note were not included. documented in this encounterDoctors Hospital06-23-2025 Telephone encounter Note * Telephone Encounter - Zulema Wood MD - 03/06/2025 12:40 PM EDT The following approved medication requests have been transmitted electronically. Requested Prescriptions Pending Prescriptions Disp Refills DULoxetine (CYMBALTA) 60 mg capsule [Pharmacy Med Name: DULOXETINE HCL DR 60 MG CAP] 90 capsule 2 Sig: TAKE 1 CAPSULE BY MOUTH EVERY DAY Zulema Wood MD [facility]06-23-2025 Miscellaneous Notes* Telephone Encounter - Zulema Wood MD - 03/06/2025 12:40 PM EDT The following approved medication requests have been transmitted electronically. Requested Prescriptions Pending Prescriptions Disp Refills DULoxetine (CYMBALTA) 60 mg capsule [Pharmacy Med Name: DULOXETINE HCL DR 60 MG CAP] 90 capsule 2 Sig: TAKE 1 CAPSULE BY MOUTH EVERY DAY Zulema Wood MD * Telephone Encounter - Chantal Chan MA - 03/06/2025 10:30 AM EDT Images from the original note were not included. Most recent Rheumatology visit: 12/28/2024 (with Zulema Wood) Last Bone Density on file: None on file Rheumatology Care Team: None on file Recent Office Visits - This Specialty 12/28/2024 Inflammatory arthritis Rheumatology Zulema Wood MD 05/30/2024 Inflammatory arthritis Rheumatology Zulema Wood MD 09/28/2023 Inflammatory arthritis Rheumatology Zulema Wood MD Upcoming Rheumatology Appointments - Next 365 Days Visit Type Date Time Department [facility] MED[facility] 06/22/2025 2:20 PM [facility] Last Ophthalmology Check for Plaquenil (Hydroxychloroquine) [...] months 09/06/25 09/09/24 02/14/25 Auth. provider: Zulema Wood MD Assoc. diagnoses: Inflammatory arthritis ALANINE AMINOTRANSFERASE / SGPT [SQALT] 3/4 Every 3 months 09/06/25 09/09/24 02/14/25 Auth. provider: Zulema Wood MD Assoc. diagnoses: Inflammatory arthritis COMPLETE BLOOD COUNT [SQCBC] 3/4 Every 3 months 09/06/25 09/09/24 02/14/25 Auth. provider: Zulema Wood MD Assoc. diagnoses: Inflammatory arthritis SEDIMENTATION RATE, WESTERGREN [SQWSR] 3/4 Every 3 months 09/06/25 09/09/24 02/14/25 Auth. provider: Zulema Wood MD Assoc. diagnoses: Inflammatory arthritis C-REACTIVE PROTEIN [SQCRP] 3/4 Every 3 months 09/06/25 09/09/24 02/14/25 Auth. provider: Zulema Wood MD Assoc. diagnoses: Inflammatory arthritis ASPARTATE AMINOTRANSFERASE/SGOT [SQAST] 3/4 Every 3 months 10/10/25 10/10/24 02/14/25 Auth. provider: Zulema Wood MD Assoc. diagnoses: Encounter for medication monitoring ALANINE AMINOTRANSFERASE / SGPT [SQALT] 3/4 Every 3 months 10/10/25 10/10/24 02/14/25 Auth. provider: Zulema Wood MD Assoc. diagnoses: Encounter for medication monitoring COMPLETE BLOOD COUNT [SQCBC] 3/4 Every 3 months 10/10/25 10/10/24 02/14/25 Auth. provider: Zulema Wood MD Assoc. diagnoses: Encounter for medication monitoring SEDIMENTATION RATE, WESTERGREN [SQWSR] 3/4 Every 3 months 10/10/25 10/10/24 02/14/25 Auth. provider: Zulema Wood MD Assoc. diagnoses: Encounter for medication monitoring C-REACTIVE PROTEIN [SQCRP] 3/4 Every 3 months 10/10/25 10/10/24 02/14/25 Auth. provider: Zulema Wood MD Assoc. diagnoses: Encounter for medication [...] meningioma (HCC), Preop testing documented in this encounterDoctors Hospital06-23-2025 NoteHNO ID: [id number] Author: SHAKILA PHILLIPS RN Service: ? Author Type: Registered [...] request and reach out to her through [employer] with a reply. Shakila Phillips RN, Care CoordinatorSt. Anthony'S Hospital06-23-2025 History of Present illness Narrative* Shakila Phillips RN - 03/06/2025 12:25 PM EDT [...] request and reach out to her through [employer] with a reply. Shakila Phillips RN, Roll Forger * Britton Tamez LPN - 03/06/2025 10:07 AM EDT Additional intake questions: Has the patient had fever, nausea, vomiting, diarrhea, constipation, fatigue for > 1 week? No Does the patient have a decreased appetite? No Does patient want to see a Salesperson Floor Coverings? No (yes to any of above refer patient to schedulers for dietitian appointment) ) Does patient have any new or increased numbness or tingling of extremities? No Is patient interested in fertility information? NA Does patient need any prescription refills? No Does patient have an advanced directive in place? Yes, copies are in Epic documented in this encounterDoctors Hospital06-23-2025 Telephone encounter Note * Telephone Encounter - Chantal Chan MA - 03/06/2025 10:30 AM EDT Images from the original note were not included. Most recent Rheumatology visit: 12/28/2024 (with Zulema Wood) Last Bone Density on file: None on file Rheumatology Care Team: None on file Recent Office Visits - This Specialty 12/28/2024 Inflammatory arthritis Rheumatology Zulema Wood MD 05/30/2024 Inflammatory arthritis Rheumatology Zulema Wood MD 09/28/2023 Inflammatory arthritis Rheumatology Zulema Wood MD Upcoming Rheumatology Appointments - Next 365 Days Visit Type Date Time Department [facility] Last Ophthalmology Check for Plaquenil (Hydroxychloroquine) [...] months 09/06/25 09/09/24 02/14/25 Auth. provider: Zulema Wood MD Assoc. diagnoses: Inflammatory arthritis ALANINE AMINOTRANSFERASE / SGPT [SQALT] 3/4 Every 3 months 09/06/25 09/09/24 02/14/25 Auth. provider: Zulema Wood MD Assoc. diagnoses: Inflammatory arthritis COMPLETE BLOOD COUNT [SQCBC] 3/4 Every 3 months 09/06/25 09/09/24 02/14/25 Auth. provider: Zulema Wood MD Assoc. diagnoses: Inflammatory arthritis SEDIMENTATION RATE, WESTERGREN [SQWSR] 3/4 Every 3 months 09/06/25 09/09/24 02/14/25 Auth. provider: Zulema Wood MD Assoc. diagnoses: Inflammatory arthritis C-REACTIVE PROTEIN [SQCRP] 3/4 Every 3 months 09/06/25 09/09/24 02/14/25 Auth. provider: Zulema Wood MD Assoc. diagnoses: Inflammatory arthritis ASPARTATE AMINOTRANSFERASE/SGOT [SQAST] 3/4 Every 3 months 10/10/25 10/10/24 02/14/25 Auth. provider: Zulema Wood MD Assoc. diagnoses: Encounter for medication monitoring ALANINE AMINOTRANSFERASE / SGPT [SQALT] 3/4 Every 3 months 10/10/25 10/10/24 02/14/25 Auth. provider: Zulema Wood MD Assoc. diagnoses: Encounter for medication monitoring COMPLETE BLOOD COUNT [SQCBC] 3/4 Every 3 months 10/10/25 10/10/24 02/14/25 Auth. provider: Zulema Wood MD Assoc. diagnoses: Encounter for medication monitoring SEDIMENTATION RATE, WESTERGREN [SQWSR] 3/4 Every 3 months 10/10/25 10/10/24 02/14/25 Auth. provider: Zulema Wood MD Assoc. diagnoses: Encounter for medication monitoring C-REACTIVE PROTEIN [SQCRP] 3/4 Every 3 months 10/10/25 10/10/24 02/14/25 Auth. provider: Zulema Wood MD Assoc. diagnoses: Encounter for medication monitoring Open Future (Single Instance) Lab Orders Expected Expires Ordered BASIC METABOLIC PANEL [SQBMP] 01/13/25 04/14/2525 Auth. provider: Erik Pineda MD Assoc. diagnoses: Intracranial meningioma (HCC), Preop testing COMPLETE BLOOD COUNT [SQCBC] 01/13/25 04/14/25 01/13/25 Auth. provider: Erik Pineda MD Assoc. diagnoses: Intracranial meningioma (HCC), Preop testing HCG, QUALITATIVE, URINE [SQUHCG] 01/13/25 04/14/25 01/13/25 Auth. provider: Erik Pineda MD Assoc. diagnoses: Intracranial meningioma (HCC), Preop testing [facility]2025 NoteHNO ID: [id number] Author: BRITTON TAMEZ LPN Service: ? Author Type: LICENSED NURSE Type: Progress Notes Filed: 03/06/2025 14:25 Note Text: Additional intake questions: Has the patient had fever, nausea, vomiting, diarrhea, constipation, fatigue for > 1 week? No Does the patient have a decreased appetite? No Does patient want to see a Salesperson Floor Coverings? No (yes to any of above refer patient to schedulers for dietitian appointment) ) Does patient have any new or increased numbness or tingling of extremities? No Is patient interested in fertility information? NA Does patient need any prescription refills? No Does patient have an advanced directive in place? Yes, copies are in Epic Electronically Signed By: [facility] History of Present illness Narrative* Stephanie Moy APRN.ENGINE LATHE SET UP OPERATOR TOOL - 03/02/2025 1:00 PM EDT Images from the original note were not included. [facility] TELE-HEALTH VISIT PROGRESS NOTE This is a virtual visit using [employer] video visit. It required patient-provider interaction for themedical decision making as documented below. I have communicated my name and active licensure. The patient's identity and physical location wereverified at the time of this visit. Either the patient or their legal welding equipment sales representative has been informed of the [...] which included preparing to see the patient, [id number] patient care, completing clinical documentation, obtaining and/or reviewing separately obtained history, performing a medically appropriate examination, counseling and educating the pat ient/family/caregiver, ordering medications, tests, or procedures, communicating with other HCPs (not separately reported), independently interpreting results (not separately reported), communicatingresults to the patient/family/caregiver, and care coordination (not separately reported). Stephanie Moy APRN.ENGINE LATHE SET UP OPERATOR TOOL Certified Nurse Practitioner cc: Erik Pineda MD - [facility] HPI: Kourtney Novak is a pleasant [...] resection. No residual mass or pathologic enhancement. Client Relations Specialist: GUANACO Transcribe Date/Time: Feb 21 2025 11:17A [...] the tumor with antibodies to SSTR2a and MS was performed on block A1. The tumor [...] 2025 10:13 AM Gross examination performed at [facility], [address] [place] [address] Clinical History Pre-op diagnosis: Intracranial meningioma (HCC) [D32.0] Preop testing [Z01.818] Performing Lab Diagnostic interpretation performed at: [facility], [address] [place] [address], [facility] [place] [address] CLIA# [id number] Market Consultant: Charan Ryan MD Disclaimer Laboratory Developed Test (LDT) Disclaimer: Performance characteristics of immunohistochemical, immunofluorescent, and chromogenic in-situ hybridization tests have been determined by the performing laboratory within [facility]'s [facility] Pathology and Laboratory Medicine Department ([facility], [facility], [facility], [facility], [facility], [facility], or [facility]) in a manner consistent with [...] stain appropriately. KPS: 90 documented in this encounterDoctors Hospital06-19-2025 NoteHNO ID: [id number] Author: STEPHANIE MOY APRN.CNP Service: ? Author Type: Nurse Practitioner Type: Progress Notes Filed: 03/02/2025 13:22 Note Text: [facility] TELE-HEALTH VISIT PROGRESS NOTE This is a virtual visit using [employer] video visit. It required patient-provider interaction for the medical decision making as documented below. I have communicated my name and active licensure. The patient's identity and physical location were verified at the time of this visit. Either the patient or their legal welding equipment sales representative has been informed of the [...] which included preparing to see the patient, [id number]-[id number] patient care, completing clinical documentation, obtaining and/or reviewing separately obtained history, performing a medically appropriate examination, counseling and educating the patient/family/caregiver, ordering medications, tests, or procedures, communicating with other HCPs (not separately reported), independently interpreting results (not separately reported), communicating results to the patient/family/caregiver, and care coordination (not separately reported). Stephanie Moy APRN.ENGINE LATHE SET UP OPERATOR TOOL Certified Nurse Practitioner cc: Erik Pineda MD - [facility] HPI: Kourtney Novak is a pleasant [...] Face symmetric with smile (more content not included)...[facility]06-16-2025 Telephone encounter Note* Telephone Encounter - Zulema Wood MD - 02/27/2025 2:51 PM EDT The following approved medication requests have been transmitted electronically. Requested Prescriptions Signed Prescriptions Disp Refills etodolac (LODINE) 400 mg tablet 60 tablet 3 Sig: TAKE 1 TABLET BY MOUTH TWICE A DAY NEEDED Authorizing Provider: ZULEMA WOOD predniSONE (DELTASONE) 5 mg tablet 60 tablet 3 Sig: TAKE 1 TO 2 TABLETS BY MOUTH EVERY DAY Authorizing Provider: ZULEMA WOOD MD [facility]06-16-2025 Miscellaneous Notes* Telephone Encounter - Zulema Wood MD - 02/27/2025 2:51 PM EDT The following approved medication requests have been transmitted electronically. Requested Prescriptions Signed Prescriptions Disp Refills etodolac (LODINE) 400 mg tablet 60 tablet 3 Sig: TAKE 1 TABLET BY MOUTH TWICE A DAY NEEDED Authorizing Provider: ZULEMA WOOD predniSONE (DELTASONE) 5 mg tablet 60 tablet 3 Sig: TAKE 1 TO 2 TABLETS BY MOUTH EVERY DAY Authorizing Provider: ZULEMA WOOD MD * Telephone Encounter - Michelle Thompson MA - 02/24/2025 12:08 PM EDT Images from the original note were not included. Most recent Rheumatology visit: 12/28/2024 (with Zulema Wood) Last Bone Density on file: None on file Rheumatology Care Team: None on file Recent Office Visits - This Specialty 12/28/2024 Inflammatory arthritis Rheumatology Zulema Wood MD 05/30/2024 Inflammatory arthritis Rheumatology Zulema Wood MD 09/28/2023 Inflammatory arthritis Rheumatology Zulema Wood MD Upcoming Rheumatology Appointments - Next 365 Days Visit Type Date Time Department [facility] Last Ophthalmology Check for Plaquenil (Hydroxychloroquine) [...] months 09/06/25 09/09/24 02/14/25 Auth. provider: Zulema Wood MD Assoc. diagnoses: Inflammatory arthritis ALANINE AMINOTRANSFERASE / SGPT [SQALT] 3/4 Every 3 months 09/06/25 09/09/24 02/14/25 Auth. provider: Zulema Wood MD Assoc. diagnoses: Inflammatory arthritis COMPLETE BLOOD COUNT [SQCBC] 3/4 Every 3 months 09/06/25 09/09/24 02/14/25 Auth. provider: Zulema Wood MD Assoc. diagnoses: Inflammatory arthritis SEDIMENTATION RATE, WESTERGREN [SQWSR] 3/4 Every 3 months 09/06/25 09/09/24 02/14/25 Auth. provider: Zulema Wood MD Assoc. diagnoses: Inflammatory arthritis C-REACTIVE PROTEIN [SQCRP] 3/4 Every 3 months 09/06/25 09/09/24 02/14/25 Auth. provider: Zulema Wood MD Assoc. diagnoses: Inflammatory arthritis ASPARTATE AMINOTRANSFERASE/SGOT [SQAST] 3/4 Every 3 months 10/10/25 10/10/24 02/14/25 Auth. provider: Zulema Wood MD Assoc. diagnoses: Encounter for medication monitoring ALANINE AMINOTRANSFERASE / SGPT [SQALT] 3/4 Every 3 months 10/10/25 10/10/24 02/14/25 Auth. provider: Zulema Wood MD Assoc. diagnoses: Encounter for medication monitoring COMPLETE BLOOD COUNT [SQCBC] 3/4 Every 3 months 10/10/25 10/10/24 02/14/25 Auth. provider: Zulema Wood MD Assoc. diagnoses: Encounter for medication monitoring SEDIMENTATION RATE, WESTERGREN [SQWSR] 3/4 Every 3 months 10/10/25 10/10/24 02/14/25 Auth. provider: Zulema Wood MD Assoc. diagnoses: Encounter for medication monitoring C-REACTIVE PROTEIN [SQCRP] 3/4 Every 3 months 10/10/25 10/10/24 02/14/25 Auth. provider: Zulema Wood MD Assoc. diagnoses: Encounter for medication [...] meningioma (HCC), Preop testing documented in [facility] encounterDo[facility] Telephone encounter Note * Telephone Encounter - Michelle Thompson MA - 02/24/2025 12:08 PM EDT Images from the original note were not included. Most recent Rheumatology visit: 12/28/2024 (with Zulema Wood) Last Bone Density on file: None on file Rheumatology Care Team: None on file Recent Office Visits - This Specialty 12/28/2024 Inflammatory arthritis Rheumatology Zulema Wood MD 05/30/2024 Inflammatory arthritis Rheumatology Zulema Wood MD 09/28/2023 Inflammatory arthritis Rheumatology Zulema Wood MD Upcoming Rheumatology Appointments - Next 365 Days Visit Type Date Time Department [facility] 06/22/2025 2:20 PM [facility] Last Ophthalmology Check for Plaquenil (Hydroxychloroquine) [...] months 09/06/25 09/09/24 02/14/25 Auth. provider: Zulema Wood MD Assoc. diagnoses: Inflammatory arthritis ALANINE AMINOTRANSFERASE / SGPT [SQALT] 3/4 Every 3 months 09/06/25 09/09/24 02/14/25 Auth. provider: Zulema Wood MD Assoc. diagnoses: Inflammatory arthritis COMPLETE BLOOD COUNT [SQCBC] 3/4 Every 3 months 09/06/25 09/09/24 02/14/25 Auth. provider: Zulema Wood MD Assoc. diagnoses: Inflammatory arthritis SEDIMENTATION RATE, WESTERGREN [SQWSR] 3/4 Every 3 months 09/06/25 09/09/24 02/14/25 Auth. provider: Zulema Wood MD Assoc. diagnoses: Inflammatory arthritis C-REACTIVE PROTEIN [SQCRP] 3/4 Every 3 months 09/06/25 09/09/24 02/14/25 Auth. provider: Zulema Wood MD Assoc. diagnoses: Inflammatory arthritis ASPARTATE AMINOTRANSFERASE/SGOT [SQAST] 3/4 Every 3 months 0110/10/24 02/14/25 Auth. provider: Zulema Wood MD Assoc. diagnoses: Encounter for medication monitoring ALANINE AMINOTRANSFERASE / SGPT [SQALT] 3/4 Every 3 months 10/10/25 10/10/24 02/14/25 Auth. provider: Zulema Wood MD Assoc. diagnoses: Encounter for medication monitoring COMPLETE BLOOD COUNT [SQCBC] 3/4 Every 3 months 10/10/25 10/10/24 02/14/25 Auth. provider: Zulema Wood MD Assoc. diagnoses: Encounter for medication monitoring SEDIMENTATION RATE, WESTERGREN [SQWSR] 3/4 Every 3 months 10/10/25 10/10/24 02/14/25 Auth. provider: Zulema Wood MD Assoc. diagnoses: Encounter for medication monitoring C-REACTIVE PROTEIN [SQCRP] 3/4 Every 3 months 10/10/25 10/10/24 02/14/25 Auth. provider: Zulema Wood MD Assoc. diagnoses: Encounter for medication [...] Assoc. diagnoses: Intracranial meningioma (HCC), Preop testing [facility]06-12-2025 Telephone encounter Note* Telephone Encounter - Shakila Phillips RN - 02/23/2025 11:24 AM EDT Images from the original note were not included. 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 Reviewed med list and sent patient a MyChart message for alternating Ibuprofen and Tylenol for headache/pain as needed Confirmed postop appointments Patient was made aware to reach out for questions/ concerns/updates. Shakila Phillips RN, Roll Forger [facility]06-12-2025 Telephone encounter Note* Telephone Encounter - Shakila Phillips RN - 02/23/2025 11:24 AM EDT General Call Caller : Pt Contact Reason for Call : Pt has question regards oxycodone meds. Patient requesting return call ? Yes [facility]06-12-2025 Miscellaneous Notes* Telephone Encounter - Shakila Phillips RN - 02/23/2025 11:24 AM EDT Images from the original note were not included. 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 Reviewed med list and sent patient a MyChart message for alternating Ibuprofen and Tylenol for headache/pain as needed Confirmed postop appointments Patient was made aware to reach out for questions/ concerns/updates. Shakila Phillips RN, Roll Forger * Telephone Encounter - Shakila Phillips RN - 02/23/2025 11:24 AM EDT [...] return call ? Yes documented in this encounterDoctors Hospital06-12-2025 Telephone encounter Note * Telephone Encounter - Kaci Maya - 02/23/2025 9:46 AM EDT General Call Caller : Pt Contact Reason for Call : Pt has question regards oxycodone meds. Patient requesting return call ? Yes [facility]06-11-2025 NoteHNO ID: [id number] Author: DAYANNA CLEMENTE ? Service: Pharmacy Author Type: Dietary Services Manager Type: Plan of Care Filed: 02/22/2025 12:08 Note Text: PHARMACY BEDSIDE DELIVERY SERVICE Patient Name: Kourtney Novak The marked outpatient medications were Filled at: [facility] and delivered to the patient's [...] Dayanna Clemente PAGER: February 22, 2025 10:56 [facility]06-11-2025 NoteHNO ID: [id number] Author: DAYANNA CLEMENTE ? Service: Pharmacy Author Type: Dietary Services Manager Type: Plan of Care Filed: 02/22/2025 10:56 Note Text: Insurance investigation completed Patient has active prescription insurance: Yes - Patient's insurance is in-network with [facility] Insurance loaded into [place]: Yes Test claim was completed to verify insurance is active: Successful Any questions, please reach out to your medication brand coordinator.[facility]06-10-2025 NoteHNO ID: [id number] Author: HERSON OZUNA RN Service: Nursing Author Type: Registered Nurse Type: Progress Notes Filed: 02/21/2025 20:22 Note Text: At 16:15 PM, Received report from [facility] [place]. At 17:00 PM, Patient transferred to the nursing division.[facility]06-10-2025 NoteHNO ID: [id number] Author: JOVANNY CHRISTENSEN RN Service: Care Management Author Type: Registered Nurse Type: Care Mgt Initial Assessment Filed: 02/21/2025 15:16 Note Text: CARE MANAGEMENT: ASSESSMENT AND DISCHARGE PLAN SERVICE DATE: February 21, 2025 SERVICE TIME: 3:14 PM PCP: Jesus Gonzalez MD Primary Contact: Extended Emergency Contact Information Primary Emergency Contact: Christiano Saini Address: [address] [place] [address] Mobile Relation: Son Secondary Emergency Contact: Laith Saini Address: [address] [place] Relation: Son Admission Status: Inpatient Insurance Provider: [employer] HMO Discharge Planning requested by: Per Department Practice Potential Transition Plans Home Advance Directives Current Advance Directive: None [place] of Choice Explained: [place] of Choice Given: No Reason Not Given: [...] DATE: February 21, 2025 TIME: 3:14 [facility]06-10-2025 NoteHNO ID: [id number] Author: GLORIA PEÑALOZA PA-C Service: Neurosurgery Author Type: Physician Digital Media Producer Type: Progress Notes Filed: 02/21/2025 12:40 Note Text: SERVICE DATE: 02/21/2025 SERVICE TIME: 8:19 AM NEUROSURGERY SKULL BASE INPATIENT PROGRESS NOTE [place] [phone] for questions/concerns about this patient from 3PM [...] Non-tender NEUROLOGY: Motor: UE BICEPS TRICEPS DELTS Physician Office Assistant HI R 5/5 5/5 5/5 5/5 5/5 [...] 126/69 Pulse: 89 92 91 Resp: 24 16 Temp: 36.4 ?C (97.6 ?F) TempSrc: [...] 1 day Peripheral 02/20/25 1245 [facility] Short Right Hand 18 Gauge <1 day Drain Duration Indwelling Urinary Catheter 02/20/25 1301 [facility] Nieves 16 Fr <1 day LABS: Na: Recent Labs 02/21/25 0437 02/20/25 1143 NA 138 137 1. Out of bed and ambulating: No Needs PT or OT Evaluation: No 2. Central line present? No 3. Continued need for urinary catheter? D/C Urinary Catheter 4. Nutrition: PO- Yes. 5. Restraints No. 6. Last BM C APPLICATION DEVELOPER Assessment AND Plan Active Hospital Problems as [...] treating with decadron 8bid (SSI, PPI) with snf taper plan off over 1 week At risk for seizures 02/21/2025 - Pre (more content not included)...[facility]06-10-2025 NoteHNO ID: [id number] Author: ERIK PINEDA MD Service: Neurosurgery Author [...] Erik Pineda MD Date: 02/21/2025 Time: 9:02 [facility]06-09-2025 NoteHNO ID: [id number] Author: TWYLA COOLEY MD Service: Neurosurgery Author [...] Pineda Signature: Twyla Cooley MD PGY4, Neurosurgery [facility] On-call pager: [phone]. Anthony'S Hospital06-09-2025 NoteHNO ID: [id number] Author: ZARA RAMACHANDRAN, Service: ? Author Type: Anesthesiologist Type: Anesthesia Procedure Notes Filed: 02/20/2025 16:12 Note Text: ANESTHESIOLOGY PROCEDURE NOTE A-Line General Information Procedure Start Time/Medication Administration: 02/20/2025 12:47 PM Procedure End Time: 02/20/2025 12:50 PM Patient location during procedure: OR Timeout Performed Pre-procedure: timeout performed Consent Obtained: Yes Patient identity confirmed: arm band Indications: continuous blood pressure monitoring Staffing Anesthesiologist: Zara Ramachandran DO Resident: Clarisa Garza MD Performed [...] the procedure. Zara Ramachandran DO, Staff Anesthesiologist SIGNATURE: Clarisa Garza MD PATIENT NAME: Kourtney Novak DATE: February 20, 2025 TIME: 2:16 PM CSN: [id number]06-09-2025 NoteHNO ID: [id number] Author: CLARISA GARZA MD Service: ? Author [...] February 20, 2025 TIME: 2:00 PM CSN: [id number] Hospital06-06-2025 Telephone encounter Note* Telephone Encounter - Shakila Phillips RN - 02/17/2025 3:53 PM EDT Spoke with the patient - we discusses signing the consent after she checks in for her surgery on Thursday02/20/25. [facility]06-06-2025 Miscellaneous Notes* Telephone Encounter - Shakila Phillips RN - 02/17/2025 3:53 PM EDT Spoke with the patient - we discusses signing the consent after she checks in for her surgery on Thursday02/20/25. documented in this encounterDoctors Hospital06-06-2025 Telephone encounter Note * Telephone Encounter - Shakila hPillips RN - 02/17/2025 3:49 PM EDT Called the patient for pre-op instructions. Questions pertaining to hospital stay and after hospital discharge instructions were addressed. Shewas made aware to touch base after she gets discharged home for review of hospital discharge instructions and confirming postop follow up appts. Shakila Phillips RN, Roll Forger [facility]06-06-2025 Miscellaneous Notes* Telephone Encounter - Shakila Phillips RN - 02/17/2025 3:49 PM EDT Called the patient for pre-op instructions. Questions pertaining to hospital stay and after hospital discharge instructions were addressed. Shewas made aware to touch base after she gets discharged home for review of hospital discharge instructions and confirming postop follow up appts. Shakila Phillips RN, Roll Forger documented in this encounterDoctors Hospital06-04-2025 History of Present illness Narrative* Erik Pineda MD - 02/15/2025 2:30 PM EDT SECTION OF SKULL BASE SURGERY MINIMALLY INVASIVE CRANIAL BASE & PITUITARY SURGERY PROGRAM [facility] TELEMEDICINE FOLLOW-UP VISIT This is a virtual visit. It required patient-provider interaction for the medical decision making as documented below. Kourtney Novak has consented for this telemedicine encounter. I have communicated my name and active licensure. The patient's identity and physical location were verified at the time of this visit. Either the patient or their legal welding equipment sales representative has been informed of the risks and benefits of -- and alternatives to -- treatment through a remote evaluation and consents to proceed with the evaluation remotely. CC: Jesus Gonzalez MD Assessment: In summary, Kourtney Novak [...] week postoperatively. - Consent form sent via [employer], including consent for blood transfusion if necessary. - Patient understands and agrees with the treatment plan. I spent a total of 30 minutes on the date of the service which included preparing to see the patient, [id number] patient care, completing clinical documentation, performing a [...] DATE OF EXAM: Feb 14 2025 10:37AM [facility] 0295 - MRI BRAIN WO/W IVCON / [...] tissue mass extending into the of the milling general superintendent or parapharyngeal spaces. The soft tissue planes of the, retropharyngeal, and prevertebral spaces are maintained. The visualized parotid glands are normal in appearance. Nasopharynx/Oropharynx: The nasopharynx and oropharynx are normal in appearance. 12/28/24 OPTH Exam ( see scanned) documented in this encounterDoctors Hospital06-04-2025 NoteHNO ID: [id number] Author: ERIK PINEDA MD Service: ? Author Type: Physician Type: Progress Notes Filed: 02/15/2025 14:59 Note Text: SECTION OF SKULL BASE SURGERY MINIMALLY INVASIVE CRANIAL BASE AND PITUITARY SURGERY PROGRAM [facility] TELEMEDICINE FOLLOW-UP VISIT This is a virtual visit. It required patient-provider interaction for the medical decision making as documented below. Kourtney Novak has consented for this telemedicine encounter. I have communicated my name and active licensure. The patient's identity and physical location were verified at the time of this visit. Either the patient or their legal welding equipment sales representative has been informed of the risks and benefits of -- and alternatives to -- treatment through a remote evaluation and consents to proceed with the evaluation remotely. CC: Jesus Gonzalez MD Assessment: In summary, Kourtney Novak [...] week postoperatively. - Consent form sent via [employer], including consent for blood transfusion if necessary. - Patient understands and agrees with the treatment plan. I spent a total of 30 minutes on the date of the service which included preparing to see the patient, [id number] patient care, completing clinical documentation, performing a [...] daily. No current facility-administered (more content not included)...[facility]06-04[facility]25 Telephone encounter Note* Telephone Encounter - Barbara Rosenthal LPN - 02/15/2025 8:21 AM EDT I called and spoke with patient. Relayed below message; denies questions at this time. Will go to [facility]. Barbara Rosenthal LPN February 15, 2025 8:22 AM [facility]06-04-2025 Miscellaneous Notes* Telephone Encounter - Barbara Rosenthal LPN - 02/15/2025 8:21 AM EDT I called and spoke with patient. Relayed below message; denies questions at this time. Will go to [facility]. Barbara Rosenthal LPN February 15, 2025 8:22 AM * Telephone Encounter - Mehul Martin APRN.JOSSIE - 02/15/2025 8:09 AM EDT Please call patient. Lab did not draw [place], A1C, or BMP. Please have her go to closest [facility] lab tohave them drawn. She can go to [facility] cancer center in [place] if that is best for her thank you. Thank you, Mehul Martin APRN.CNP documented in this encounterDoctors Hospital06-04-2025 Telephone encounter Note * Telephone Encounter - Mehul Martin APRN.CNP - 02/15/2025 8:09 AM EDT Please call patient. Lab did not draw [place], A1C, or BMP. Please have her go to closest [facility] lab tohave them drawn. She can go to [facility] cancer center in [place] if that is best for her thank you. Thank you, Mehul aMrtin APRN.CNP [facility]06-03-2025 History of Present illness Narrative* Iwona Lainez RT(Lc) - 02/14/2025 9:20 AM EDT Radiology Service [...] PATIENT PRESENTS WITH AN IMPLANTABLE OR ATTACHED RUBBER DOWN: No RADIOLOGY DEPARTMENT: MR; Exam(s) Completed: Head: Routine Brain Localization PERIPHERAL IV DATA: Site assessment: Clean,Dry and Intact, Site disposition Discontinued SIGNED BY: RT Alma(Lc) February 14, 2025 9:16 AM documented in this encounterDoctors Hospital06-03-2025 NoteHNO ID: [id number] Author: IWONA LAINEZ RT(R) Service: ? Author Type: Technologist [...] PATIENT PRESENTS WITH AN IMPLANTABLE OR ATTACHED RUBBER DOWN: No RADIOLOGY DEPARTMENT: MR; Exam(s) Completed: Head: Routine Brain Localization PERIPHERAL IV DATA: Site assessment: Clean,Dry and Intact, Site disposition Discontinued SIGNED BY: RT Alma(R) February 14, 2025 9:16 [facility]06-03-2025 History and physical note* Mehul Martin APRN.ENGINE LATHE SET UP OPERATOR TOOL - 02/14/2025 7:40 AM EDT HISTORY AND PHYSICAL EXAMINATION SERVICE DATE: 02/14/2025 SERVICE TIME: 7:58 AM PRIMARY CARE PHYSICIAN: Jesus Gonzalez MD REASON FOR VISIT: Kourtney Novak [...] of breath with the above physical activity. [id number] Score: Age: <65 Sex: female CHF history: No Hypertension history: No Stroke/TIA/thromboembolism history: No Vascular disease history: No Diabetes history: Yes [id number] Score: 2 ARISCAT Score: Age: <=50 Preoperative [...] COVID-19 original vaccine, age 12+ yr, monovalent (Blowtorch - PURPLE TOP) 01/02/2021 Imm Admin: COVID-19 original vaccine, age 12+ yr, monovalent (Blowtorch - PURPLE TOP) REVIEW OF SYSTEMS: PAIN ASSESSMENT: General: No weight loss, malaise or fevers. Neuro: See HPI +Fibromyalgia Respiratory: Negative for Asthma, Dyspnea, Home O2 +COPD +MAREK Cardiovascular: Negative for Recent PA, Angina, Chest Pain, PVD, DVT/PE +HLD GI: Negative for Nausea, Vomiting, Abdominal pain +GERD : Negative for dysuria, incontinence, hematuria, and hesitancy RETAIL PHARMACIST: Negative for abnormal vaginal bleeding, abnormal vaginal [...] 386 QTC Calculation (Bazett) 436 Calculated P [place] 36 Calculated R [place] 47 Calculated T [place] 47 Impression NORMAL SINUS RHYTHM NORMAL ECG Instructions Given to Patient: Instructions located in the after visit summary. Patient given verbal and written preop instructions and voices comprehension and compliance. SIGNATURE: Mehul Martin APRN.CNP PATIENT NAME: Kourtney Novak DATE: 02/14/2025 TIME: 7:58 AM [facility] History and physical note* Mehul Martin APRN.CNP - 02/14/2025 7:40 AM EDT HISTORY AND PHYSICAL EXAMINATION SERVICE DATE: 02/14/2025 SERVICE TIME: 7:58 AM PRIMARY CARE PHYSICIAN: Jesus Gonzalez MD REASON FOR VISIT: Kourtney Novak [...] [facility]ology COPD (chronic obstructive pulmonary disease) ([facility]) Assessment: Stable with nebulizer treatments Denies any [...] of breath with the above physical activity. [id number] Score: Age: <65 Sex: female CHF history: No Hypertension history: No Stroke/TIA/thromboembolism history: No Vascular disease history: No Diabetes history: Yes [id number] Score: 2 ARISCAT Score: Age: <=50 Preoperative [...] COVID-19 original vaccine, age 12+ yr, monovalent (Blowtorch - [facility]) 01/02/2021 Imm Admin: COVID-19 original vaccine, age 12+ yr, monovalent (Blowtorch [facility]) REVIEW OF SYSTEMS: PAIN ASSESSMENT: General: No weight loss, malaise or fevers. Neuro: See HPI +Fibromyalgia Respiratory: Negative for Asthma, Dyspnea, Home O2 +COPD +MAREK Cardiovascular: Negative for Recent PA, Angina, Chest Pain, PVD, DVT/PE +HLD GI: Negative for Nausea, Vomiting, Abdominal pain +GERD : Negative for dysuria, incontinence, hematuria, and hesitancy RETAIL PHARMACIST: Negative for abnormal vaginal bleeding, abnormal vaginal [...] 386 QTC Calculation (Bazett) 436 Calculated P [place] 36 Calculated R [place] 47 Calculated T [place] 47 Impression NORMAL SINUS RHYTHM NORMAL ECG Instructions Given to Patient: Instructions located in the after visit summary. Patient given verbal and written preop instructions and voices comprehension and compliance. SIGNATURE: Mehul Martin APRN.CNP PATIENT NAME: Kourtney Novak DATE: 02/14/2025 TIME: 7:58 AM documented in this encounterDoctors Hospital06-02-2025 Instructions* Patient Instructions* Mehul Martin APRN.CNP - 02/13/2025 11:26 AM EDT PATIENT PREOPERATIVE INSTRUCTIONS You Surgeon has scheduled you for your procedure at this surgery center: [facility] Scheduling Office: [phone] --[address] [place] [address]. Please read below carefully for your personalized [...] SURGERY If you are currently using a whgq-aww-bzwi injectable or oral medication for diabetes or weight loss such as Dulaglutide (Trulicmarielena), Exenatide (Byetta, Bydureon), Liraglutide (Victoza, Saxenda), Semaglutide [...] Procedures: - YOU MUST HAVE A RESPONSIBLE [facility] RADIO OPERATOR TAKE YOU HOME. A ASSOCIATE PROFESSOR OF KINESIOLOGY OR AUTOMATION TEST ENGINEER CANNOT BE MADE A RESPONSIBLE [facility] RADIO OPERATOR. - We recommend that a responsible person [...] call the Thursday before. Your surgeon s rice field worker will tell you what time to call the office. - If you have not reached the departmental rice field worker by 5 P.M., call [phone] after 5 P.M. the day before your surgery. Please be aware that emergency situations arise, which may delay or change your surgical time. If this happens, we will notify you as soon as possible and regret any inconvenience. If you already have an Advance Directive, please fax a copy to [phone] or email to for it to be [...] into your chart that day. Mehul Martin APRN.ENGINE LATHE SET UP OPERATOR TOOL documented in this encounterDoctors Hospital05-30-2025 Radiology Diagnostic study [facility] [place] [address] Ultrasound Report Signed Patient: Kourtney Novak MR#: [id number] : 1975 Acct:[id number] Age/Sex: 49 / F ADM Date: 5 Loc: Room: Type: [facility] Attending Dr: Jesus Gonzalez MD Ordering Provider: Jesus Gonzalez MD Date of Service: 02/10/25 US/US renal BI: N28.9 Copies to: Jesus Gonzalez MD~ Bilateral Renal Ultrasound HISTORY: Abnormal [...] Gray M.D. 02/10/2025 4:44 PM Dictation Location: [place] [address] Tech: Vani Baker Transcribed By: GRACIE 02/10/25 164 Dictated By: George Gray DO 02/10/25 1643 Signed By: 02/10/25 1644 [facility]05-15-2025 Telephone encounter Note* Telephone Encounter [...] WEEK THEN STOP Pharmacy Name: [facility]05[facility]15[facility] Miscellaneous Notes* Telephone Encounter - Gifty [...] FOR 1 WEEK THEN STOP [facility] documented in this encounterDoctors Hospital04-25-2025 NoteHNO ID: [id number] Author: RACHELE FENTON APRN.JOSSIE Service: ? Author [...] visit. Either the patient or their legal welding equipment sales representative has been informed of the [...] 15 mg tablet simvastatin (more content not included)...[facility]04-24-2025 NoteHNO ID: [id number] Author: LA NENA WATERMAN LPN Service: ? Author Type: LICENSED NURSE Type: Progress Notes Filed: 01/05/2025 12:51 Note Text: Eye exam for Plaquenil toxicity received from [facility]. Exam date was 12/20/2024. Exam shows no signs of Plaquenil toxicity. Forms sent for scanning.[facility]04-17-2025 Telephone encounter Note* Telephone Encounter - [...] A DAY NEEDED Pharmacy Name: [facility]04-17-2025 Miscellaneous Notes* Telephone Encounter - Gifty [...] TWICE A DAY NEEDED Pharmacy Name: [facility] documented in this encounterDoctors Hospital04-16-2025 NoteHNO ID: [id number] Author: ZULEMA WOOD MD Service: ? Author Type: Physician [...] extremities. GI: Bowel sound (more content not included)...[facility] 12-28-2024 History of Present illness Narrative* Zulema Wood MD - 12/28/2024 9:49 AM EDT [...] gym- recently started. F/U:6m Check following: -none Zulema Wood MD Answers submitted by the patient [...] No Swollen Glands: No documented in this encounterDoctors Hospital04-15-2025 Evaluation note* Diagnosis Onset Date Resolution Status Admit Date Osteochondrosis of lunate of right wrist acuteApril 2024 12:51pmRight wrist painacuteApril 2024 12:51pm Osteochondrosis of lunate of right wristacuteMay 2024 1:57pmRight wrist painacuteMay 2024 1:57pm [facility] Work Phone: 1(341) 465-652804-15-2025 Evaluation note* Diagnosis Onset Date Resolution Status Admit Date Osteochondrosis of lunate of right wrist acuteApril 2024 12:51pmRight wrist painacuteApril 2024 12:51pm Osteochondrosis of lunate of right wristacuteMay 2024 1:57pmRight wrist painacuteMay 2024 1:57pmOsteochondrosis of lunate of right wristacuteJuly 2024 3:55pmRight wrist painacuteJuly 2024 3:55pm [facility] Work Phone: 1(882) 111-626903-24-2025 Telephone encounter Note* Telephone Encounter - Shakila Phillips RN - 12/05/2024 10:27 AM EDT [...] made aware to reach out for questions/concerns/updates. Shakila Phillips RN, Roll Forger [facility]03-24-2025 Miscellaneous Notes* Telephone Encounter - Shakila Phillips RN - 12/05/2024 10:27 AM EDT [...] made aware to reach out for questions/concerns/updates. Shakila Phillips RN, Roll Forger * Telephone Encounter - Shakila Phillips RN - 12/05/2024 10:04 AM EDT Left a detailed voice message for the patient requesting a call back to discuss her plan of care & scheduling surgery. Contact info provided. documented in this encounterDoctors Hospital03-24-2025 Telephone encounter Note * Telephone Encounter - Shakila Phillips RN - 12/05/2024 10:04 AM EDT Left a detailed voice message for the patient requesting a call back to discuss her plan of care & scheduling surgery. Contact info provided. [facility] Evaluation note* Diagnosis Onset Date Resolution Status Admit Date Bursitis of left shoulder acuteFebruary 2024 9:12amOsteochondrosis of lunate of right wristacute December 27, 2024 12:51pmRight wrist painacuteApr2024 12:51pm [facility] Work Phone: 1(681) 959-165401-27-2025 Telephone encounter Note* Telephone Encounter - Tere Escamilla LPN - 10/10/2024 4:59 PM EST Faxed new order with updated diagnosis code . sent to [phone]. [facility]01-[facility] Miscellaneous Notes* Telephone Encounter - Tere Escamilla LPN - 10/10/2024 4:59 PM EST Faxed new order with updated diagnosis code . sent to [phone]. * Telephone Encounter - Tere Escamilla LPN - 10/10/2024 3:27 PM EST Received fax from [facility]. States that diagnosis code M19.9 ( inflammatory arthritis ) does not pass medical necessity for the 02217 regarding CBC test. They needs a different order to be placed with another diagnosis code. Please fax to Jimbo Whitten at [phone]. Notice sent to scanning . Please route to [facility] nurse for follow up documented in this encounterDoctors Hospital01-27-2025 Telephone encounter Note * Telephone Encounter - Zulema Wood MD - 10/10/2024 4:34 PM EST The following approved medication requests have been transmitted electronically. Requested Prescriptions Pending Prescriptions Disp Refills DULoxetine (CYMBALTA) 60 mg capsule 30 capsule 6 Sig: Take 1 capsule by mouth once daily. DULoxetine (CYMBALTA) 30 mg capsule 30 capsule 6 Sig: Take one tab along with the 60mg tab to equal 90mg po qd Zulema Wood MD [facility]01-27-2025 Miscellaneous Notes* Telephone Encounter - Zulema Wood MD - 10/10/2024 4:34 PM EST The following approved medication requests have been transmitted electronically. Requested Prescriptions Pending Prescriptions Disp Refills DULoxetine (CYMBALTA) 60 mg capsule 30 capsule 6 Sig: Take 1 capsule by mouth once daily. DULoxetine (CYMBALTA) 30 mg capsule 30 capsule 6 Sig: Take one tab along with the 60mg tab to equal 90mg po qd Zulema Wood MD * Telephone Encounter - La Nena Waterman LPN - 10/10/2024 2:50 PM EST Most recent Rheumatology visit: 05/30/2024 (with Zulema Wood) Last Bone Density on file: None on file Rheumatology Care Team: None on file Recent Office Visits - This Specialty 05/30/2024 Inflammatory arthritis Rheumatology Zulema Wood MD 09/28/2023 Inflammatory arthritis Rheumatology Zulema Wood MD 09/29/2022 Inflammatory arthritis Rheumatology Zulema Wood MD Upcoming Rheumatology Appointments - Next 365 Days Visit Type Date Time Department [facility] MEDICAL 12/28/2024 9:20 AM [facility] Last Ophthalmology Check for Plaquenil (Hydroxychloroquine) [...] Every 3 months 09/06/25 09/09/24 Auth. provider: Zulema Wood MD Assoc. diagnoses: Inflammatory arthritis ALANINE AMINOTRANSFERASE / SGPT [SQALT] 4/4 Every 3 months 09/06/25 09/09/24 Auth. provider: Zulema Wood MD Assoc. diagnoses: Inflammatory arthritis COMPLETE BLOOD COUNT [SQCBC] 4/4 Every 3 months 09/06/25 09/09/24 Auth. provider: Zulema Wood MD Assoc. diagnoses: Inflammatory arthritis SEDIMENTATION RATE, WESTERGREN [SQWSR] 4/4 Every 3 months 09/06/25 09/09/24 Auth. provider: Zulema Wood MD Assoc. diagnoses: Inflammatory arthritis C-REACTIVE PROTEIN [SQCRP] 4/4 Every 3 months 09/06/25 09/09/24 Auth. provider: Zulema Wood MD Assoc. diagnoses: Inflammatory arthritis Open Future (Single Instance) Lab Orders None documented in this encounterDoctors Hospital01-27-2025 Telephone encounter Note * Telephone Encounter - Tere Escamilla LPN - 10/10/2024 3:27 PM EST Received fax from [facility]. States that diagnosis code M19.9 ( inflammatory arthritis ) does not pass medical necessity for the 05705 regarding CBC test. They needs a different order to be placed with another diagnosis code. Please fax to Jimbo Whitten at [phone]. Notice sent to scanning . Please route to [facility] nurse for follow up [facility] Telephone encounter Note* Telephone Encounter - La Nena Waterman LPN - 10/10/2024 2:50 PM EST Most recent Rheumatology visit: 05/30/2024 (with Zulema Wood) Last Bone Density on file: None on file Rheumatology Care Team: None on file Recent Office Visits - This Specialty 05/30/2024 Inflammatory arthritis Rheumatology Zulema Wood MD 09/28/2023 Inflammatory arthritis Rheumatology Zulema Wood MD 09/29/2022 Inflammatory arthritis Rheumatology Zulema Wood MD Upcoming Rheumatology Appointments - Next 365 Days Visit Type Date Time Department [facility] 12/28/2024 9:20 AM [facility] Last Ophthalmology Check for Plaquenil (Hydroxychloroquine) [...] Every 3 months 09/06/25 09/09/24 Auth. provider: Zulema Wood MD Assoc. diagnoses: Inflammatory arthritis ALANINE AMINOTRANSFERASE / SGPT [SQALT] 4 Every 3 months 09/06/25 09/09/24 Auth. provider: Zulema Wood MD Assoc. diagnoses: Inflammatory arthritis COMPLETE BLOOD COUNT [SQCBC] 4/4 Every 3 months 09/06/25 09/09/24 Auth. provider: Zulema Wood MD Assoc. diagnoses: Inflammatory arthritis SEDIMENTATION RATE, WESTERGREN [SQWSR] 4/4 Every 3 months 09/06/25 09/09/24 Auth. provider: Zulema Wood MD Assoc. diagnoses: Inflammatory arthritis C-REACTIVE PROTEIN [SQCRP] 4/4 Every 3 months 09/06/25 09/09/24 Auth. provider: Zulema Wood MD Assoc. diagnoses: Inflammatory arthritis Open Future (Single Instance) Lab Orders None [facility]01[facility] Evaluation note* Diagnosis Onset Date Resolution Status Admit Date Osteochondrosis of lunate of right wrist acuteJanuary 2024 2:48pmRight wrist painacuteJanuary 2024 2:48pm Bursitis of left shoulderacuteFebruary 2024 9:12am [facility] Work Phone: 1(216) 381-473101-07-2025 Telephone encounter Note* Telephone Encounter - Tere Escamilla LPN - 09/20/2024 5:15 PM EST Lab results received from [facility] . Copy sent to scan, copy sent to provider folder for review. . [facility]01-07[facility] Miscellaneous Notes* Telephone Encounter - Tere Escamilla LPN - 09/20/2024 5:15 PM EST Lab results received from [facility] . Copy sent to scan, copy sent to provider folder for review. . documented in this encounterDoctors Hospital01-02-2025 Telephone encounter Note * Telephone Encounter - Tere Escamilla LPN - 09/15/2024 3:42 PM EST Lab orders faxed to [phone]. Patient updated via [employer] [facility]01-02-2025 Miscellaneous Notes* Telephone Encounter - Tere Escamilla LPN - 09/15/2024 3:42 PM EST Lab orders faxed to [phone]. Patient updated via [employer] * Telephone Encounter - Zulema Wood MD - 09/15/2024 2:04 PM EST Please send lab orders to where patient would like. [facility] call patient to discuss. Zulema Wood MD documented in this encounterDoctors Hospital01-02-2025 Telephone encounter Note * Telephone Encounter - Zulema Wood MD - 09/15/2024 2:04 PM EST Please send lab orders to where patient would like. [facility] call patient to discuss. Zulema Wood MD [facility]12-27-2024 Telephone encounter Note* Telephone Encounter - Zulema Wood MD - 09/09/2024 12:52 PM EST Yes , she needs labs. The following approved medication requests have been transmitted electronically. Requested Prescriptions Signed Prescriptions Disp Refills etodolac (LODINE) 400 mg tablet 60 tablet 3 Sig: One tab po bid prn Authorizing Provider: ZULEMA WOOD predniSONE (DELTASONE) 5 mg tablet 60 tablet 3 Sig: TAKE 1 TO 2 TABLETS BY MOUTH EVERY DAY Authorizing Provider: ZULEMA WOOD MD [facility]12-27-2024 Telephone encounter Note* Telephone Encounter - Zulema Wood MD - 09/09/2024 12:52 PM EST The following approved medication requests have been transmitted electronically. Requested Prescriptions Signed Prescriptions Disp Refills etodolac (LODINE) 400 mg tablet 60 tablet 3 Sig: One tab po bid prn Authorizing Provider: ZULEMA WOOD predniSONE (DELTASONE) 5 mg tablet 60 tablet 3 Sig: TAKE 1 TO 2 TABLETS BY MOUTH EVERY DAY Authorizing Provider: ZULEMA WOOD MD [facility]12-27-2024 Miscellaneous Notes* Telephone Encounter - Zulema Wood MD - 09/09/2024 12:52 PM EST Yes , she needs labs. The following approved medication requests have been transmitted electronically. Requested Prescriptions Signed Prescriptions Disp Refills etodolac (LODINE) 400 mg tablet 60 tablet 3 Sig: One tab po bid prn Authorizing Provider: ZULEMA WOOD predniSONE (DELTASONE) 5 mg tablet 60 tablet 3 Sig: TAKE 1 TO 2 TABLETS BY MOUTH EVERY DAY Authorizing Provider: ZULEMA WOOD MD * Telephone Encounter - Zulema Wood MD - 09/09/2024 12:52 PM EST The following approved medication requests have been transmitted electronically. Requested Prescriptions Signed Prescriptions Disp Refills etodolac (LODINE) 400 mg tablet 60 tablet 3 Sig: One tab po bid prn Authorizing Provider: ZULEMA WOOD predniSONE (DELTASONE) 5 mg tablet 60 tablet 3 Sig: TAKE 1 TO 2 TABLETS BY MOUTH EVERY DAY Authorizing Provider: ZULEMA WOOD MD * Telephone Encounter - Tere Escamilla LPN - 09/06/2024 11:11 AM EST No current labs ordered . Please advise if labs are appropriate. Route to [facility] Nurse in order to follow up with faxing Lab orders to [place] [phone] . * Telephone Encounter - Alisha Paniagua RN - 09/01/2024 5:10 PM EST Please monitor for receipt of labs. No labs completed presently. * Telephone Encounter - Zulema Wood MD - 08/31/2024 4:25 PM EST She needs labs before I can give her refill. Labs in epic. Zulema Wood MD * Telephone Encounter - Tory Thomas LPN - 08/29/2024 11:22 AM EST Most recent Rheumatology visit: 05/30/2024 (with Zulema Wood) Last Bone Density on file: None on file Rheumatology Care Team: None on file Recent Office Visits - This Specialty 05/30/2024 Inflammatory arthritis Rheumatology Zulema Wood MD 09/28/2023 Inflammatory arthritis Rheumatology Zulema Wood MD 09/29/2022 Inflammatory arthritis Rheumatology Zulema Wood MD Upcoming Rheumatology Appointments - Next 365 Days Visit Type Date Time Department [facility] MEDICAL 12/28/2024 9:20 AM [facility] Last Ophthalmology Check for Plaquenil (Hydroxychloroquine) [...] Instance) Lab Orders None documented in this encounterDoctors Hospital12-24-2024 Telephone encounter Note * Telephone Encounter - Tere Escamilla LPN - 09/06/2024 11:11 AM EST No current labs ordered . Please advise if labs are appropriate. Route to [facility] Nurse in order to follow up with faxing Lab orders to [place] [phone] . [facility]12-19-[facility] Telephone encounter Note* Telephone Encounter - Alisha Paniagua RN - 09/01/2024 5:10 PM EST Please monitor for receipt of labs. No labs completed presently. [facility]12-18-2024 Telephone encounter Note* Telephone Encounter - Zulema Wood MD - 08/31/2024 4:25 PM EST She needs labs before I can give her refill. Labs in epic. Zulema Wood MD [facility]12-16-2024 Telephone encounter Note* Telephone Encounter - Tory Thomas LPN - 08/29/2024 11:22 AM EST Most recent Rheumatology visit: 05/30/2024 (with Zulema Wood) Last Bone Density on file: None on file Rheumatology Care Team: None on file Recent Office Visits - This Specialty 05/30/2024 Inflammatory arthritis Rheumatology Zulema Wood MD 09/28/2023 Inflammatory arthritis Rheumatology Zulema Wood MD 09/29/2022 Inflammatory arthritis Rheumatology Zulema Wood MD Upcoming Rheumatology Appointments - Next 365 Days Visit Type Date Time Department [facility] 12/28/2024 9:20 AM [facility] Last Ophthalmology Check for Plaquenil (Hydroxychloroquine) [...] Open Future (Single Instance) Lab Orders None [facility]10-30-2024 History of Present illness Narrative* Estevan De La O NP - 07/13/2024 5:30 PM EDT Images [...] 20 tablet; Refill: 0 documented in this encounterUniversity of Missouri Health [id number] History of Present illness Narrative* Zulema Wood MD - 05/30/2024 9:52 AM EDT [...] gym- recently started. F/U:6m Check following: -none Zulema Wood MD Answers submitted by the patient [...] No Swollen Glands: No documented in this encounterDoctors Hospital09-12-2024 Telephone encounter Note * Telephone Encounter - Eun Stanford APRN.CNP - 05/26/2024 10:59 AM EDT The following approved medication requests have been transmitted electronically. Requested Prescriptions Signed Prescriptions Disp Refills methocarbamol (ROBAXIN) 500 mg tablet 45 tablet 2 Sig: Take 1 tablet by mouth two times a day as needed. Authorizing Provider: EUN STANFORD APRN.CNP [facility]09-12-2024 Miscellaneous Notes* Telephone Encounter - Eun [...] [facility]acy [facility]: [facility] documented in this encounterDoctors Hospital09-12-2024 Telephone encounter Note * Telephone Encounter - SummersTala - 05/26/2024 10:14 AM EDT Physician: Eliceo [...] day as needed. Pharmacy Name: [facility]07-12-2024 Telephone encounter Note* Telephone Encounter - Zulema Wood MD - 03/25/2024 12:32 PM EDT The following approved medication requests have been transmitted electronically. Requested Prescriptions Pending Prescriptions Disp Refills predniSONE (DELTASONE) 5 mg tablet [Pharmacy Med Name: prednisone 5 mg tablet] 60 tablet 3 Sig: TAKE 1 TO 2 TABLETS BY MOUTH EVERY DAY Zulema Wood MD [facility]07-12-2024 Miscellaneous Notes* Telephone Encounter - Zulema Wood MD - 03/25/2024 12:32 PM EDT The following approved medication requests have been transmitted electronically. Requested Prescriptions Pending Prescriptions Disp Refills predniSONE (DELTASONE) 5 mg tablet [Pharmacy Med Name: prednisone 5 mg tablet] 60 tablet 3 Sig: TAKE 1 TO 2 TABLETS BY MOUTH EVERY DAY Zulema Wood MD * Telephone Encounter - Tere Escamilla LPN - 03/25/2024 11:25 AM EDT No standing orders on file Most recent Rheumatology visit: 09/28/2023 (with Zulema Wood) Rheumatology Care Team: None on file Recent Office Visits - This Specialty 09/28/2023 Inflammatory arthritis Rheumatology Zulema Wood MD 09/29/2022 Inflammatory arthritis Rheumatology Zulema Wood MD 01/20/2022 Inflammatory arthritis Rheumatology Zulema Wood MD Upcoming Rheumatology Appointments - Next 365 Days Visit Type Date Time Department [facility] 05/30/2024 9:40 AM [facility] Last Ophthalmology Check for Plaquenil (Hydroxychloroquine) [...] (HCC), Preop testing TYPE AND SCREEN,30 DAY [[id number]] 02/03/24 05/04/24 02/03/24 Auth. provider: Erik Pineda MD Assoc. diagnoses: Intracranial meningioma (HCC), Preop testing documented in this encounterDoctors [facility]07-12-[facility]24 Telephone encounter Note * Telephone Encounter - Tere Escamilla LPN - 03/25/2024 11:25 AM EDT No standing orders on file Most recent Rheumatology visit: 09/28/2023 (with Zulema Wood) Rheumatology Care Team: None on file Recent Office Visits - This Specialty 09/28/2023 Inflammatory arthritis Rheumatology Zulema Wood MD 09/29/2022 Inflammatory arthritis Rheumatology Zulema Wood MD 01/20/2022 Inflammatory arthritis Rheumatology Zulema Wood MD Upcoming Rheumatology Appointments - Next 365 Days Visit Type Date Time Department [facility] 05/30/2024 9:40 AM [facility] Last Ophthalmology Check for Plaquenil (Hydroxychloroquine) [...] (HCC), Preop testing TYPE AND SCREEN,30 DAY [[id number]] 02/03/24 05/04/24 02/03/24 Auth. provider: Erik Pineda MD Assoc. diagnoses: Intracranial meningioma (HCC), Preop testing [facility] Telephone encounter Note* Telephone Encounter - Emma Vargas - 03/23/2024 2:05 PM EDT Patient last seen 02/05/2024. [facility] Miscellaneous Notes* Telephone Encounter - Emma Vargas - 03/23/2024 2:05 PM EDT Patient last seen 02/05/2024. documented in this encounterDoctors Hospital06-25-2024 Telephone encounter Note * Telephone Encounter - Shakila Phillips RN - 03/08/2024 2:39 PM EDT ADDENDUM: March 08, 2024 2:39 PM Distance Health Visit on 02/02/2024 including the details for the patient's surgery was faxed to Moira DONOVAN ( [facility]) . Shakila Phillips RN, Roll Forger [facility]06-25-[facility]24 Miscellaneous Notes* Telephone Encounter - Shakila Phillips RN - 03/08/2024 2:39 PM EDT ADDENDUM: March 08, 2024 2:39 PM Distance Health Visit on 02/02/2024 including the details for the patient's surgery was faxed to Moira DONOVAN ( [facility]) . Shakila Phillips RN, Roll Forger * Telephone Encounter - Shakila Phillips RN - 03/08/2024 2:17 PM EDT Spoke with nurse Pizarro. We discussed that the patient's epidural steroid injection on 03/14/2024 for her neck pain (C7/T1) isfar out from her surgery for the craniotomy with Dr Erik Pineda (04/04/24). Shakila Phillips RN, Roll Forger * Telephone Encounter - Brain Ruth - 03/08/2024 1:46 PM EDT General Call Caller : Moira harrison at [facility] Contact Reason for Call : Nurse would like to confirm that pt is allowed to receive steroid injection priorto surgery-80mg of kenalog Patient requesting return call ? Yes documented in this encounterDoctors Hospital06-25-2024 Telephone encounter Note * Telephone Encounter - Shakila Phillips RN - 03/08/2024 2:17 PM EDT Spoke with nurse Pizarro. We discussed that the patient's epidural steroid injection on 03/14/2024 for her neck pain (C7/T1) isfar out from her surgery for the craniotomy with Dr Erik Pineda (04/04/24). Shakila Phillips RN, Roll Forger [facility] Telephone encounter Note* Telephone Encounter - Brain Ruth - 03/08/2024 1:46 PM EDT General Call Caller : Moira Ortiz nurse at [facility] Contact Reason for Call : Nurse would like to confirm that pt is allowed to receive steroid injection priorto surgery-80mg of kenalog Patient requesting return call ? Yes [facility]-29[facility] Telephone encounter Note* Telephone Encounter - Marana Gifty Rea - 02/10/2024 3:12 PM EDT Images from the original note were not included. Prior Authorization for Medications Requested by ([employer], Pharmacy, Patient Call, Fax) : [facility] Name: [facility] Phone # : [phone] Name of Medication : Robaxin Dose : 500 mg Tablet If renewal, auth date expiration: NA Prescribing Provider: Eliceo Last OV: 02/05/2024 with Eliceo Insurance Provider : Medicare / [employer]. Is insurance card scanned in, including Rx info? Medicare card scanned - no RX information Insurance Phone : CoverMyMeds [place]: NA E-PA? Yes [facility] Miscellaneous Notes* Telephone Encounter - Marana Gifty Rea - 02/10/2024 3:12 PM EDT Images from the original note were not included. Prior Authorization for Medications Requested by ([employer], Pharmacy, Patient Call, Fax) : [facility] Name: [facility] Phone # : [phone] Name of Medication : Robaxin Dose : 500 mg Tablet If renewal, auth date expiration: NA Prescribing Provider: Eliceo Last OV: 02/05/2024 with Eliceo Insurance Provider : Medicare / [employer]. Is insurance card scanned in, including Rx info? Medicare card scanned - no RX information Insurance Phone : CoverMyMeds [place]: NA E-PA? Yes documented in this encounterDoctors Hospital05-24-2024 History of Present illness Narrative* Rachele Fenton APRN.ENGINE LATHE SET UP OPERATOR TOOL - 02/05/2024 7:00 AM EDT Images from [...] visit. Either the patient or their legal welding equipment sales representative has been informed of the [...] these with the patient: yes Rachele Fenton APRN.ENGINE LATHE SET UP OPERATOR TOOL HEADACHE SCORES: 06/19/2023 02/01/2024 Headache Questions ID [...] soft tissue component identified in the orbit. Client Relations Specialist: GUANACO Transcribe Date/Time: Jan 31 2024 3:33P [...] articulation, and clear,coherent, and relevant. Short and snf memory, cognition and general fund of knowledge [...] 30 minutes Rachele Fenton APRN.JOSSIE Headache Section [facility] February 05, 2024 documented in this encounterDoctors Hospital05-21-2024 History of Present illness Narrative* Alexandria Bartholomew MD - 02/02/2024 7:36 PM EDT Images from the original note were not included. SECTION OF SKULL BASE SURGERY MINIMALLY INVASIVE CRANIAL BASE & PITUITARY SURGERY PROGRAM [facility] CC: Patient Care Team: Jesus Gonzalez MD as PCP - General (Family Medicine) Jesus Gonzalez MD as Referring (Family Medicine) Jesus Gonzalez MD as Referring (Family Medicine) Assessment: [...] which included preparing to see the patient, [id number] patient care, completing clinical documentation, performing a [...] sphenoid wing without significant change since 05/06/2023. Client Relations Specialist: PSCB Transcribe Date/Time: Jan 31 2024 5:10P [...] tissue mass extending into the of the milling general superintendent or parapharyngeal spaces. The soft tissue planes of the, retropharyngeal, and prevertebral spaces are maintained. The visualized parotid glands are normal in appearance. Nasopharynx/Oropharynx: The nasopharynx and oropharynx are normal in appearance. Result History documented in this encounterDoctors Hospital05-21-2024 Telephone encounter Note * Telephone Encounter - Shakila Phillips RN - 02/02/2024 10:23 AM EDT Called the patient confirming virtual appointment today at [address] Alexandria Bartholomew ( Skull base fellow from Dr Pineda team). [facility] Miscellaneous Notes* Telephone Encounter - Shakila Phillips RN - 02/02/2024 10:23 AM EDT Called the patient confirming virtual appointment today at [address] Alexandria Bartholomew ( Skull base fellow from Dr Pineda team). documented in this encounterDoctors Hospital05-20-2024 Telephone encounter Note * Telephone Encounter - Jumana Zapien RN - 02/01/2024 10:39 AM EDT Pharmacy requesting refill via [employer]. Last OV: 06/26/2023 Future OV: 02/05/2024 with Rachele Fenton APRN.ENGINE LATHE SET UP OPERATOR TOOL Last prescribed: 06/26/2023 Requested Prescriptions Pending Prescriptions Disp Refills tiZANidine (ZANAFLEX) 4 mg tablet [Pharmacy Med Name: tizanidine 4 mg tablet] 60 tablet 3 Sig: take 1 tablet by mouth every 8 hours as needed [facility]-20[facility] Miscellaneous Notes* Telephone Encounter - Jumana Zapien RN - 02/01/2024 10:39 AM EDT Pharmacy requesting refill via [employer]. Last OV: 06/26/2023 Future OV: 02/05/2024 with Rachele Fenton APRN.ENGINE LATHE SET UP OPERATOR TOOL Last prescribed: 06/26/2023 Requested Prescriptions Pending Prescriptions Disp Refills tiZANidine (ZANAFLEX) 4 mg tablet [Pharmacy Med Name: tizanidine 4 mg tablet] 60 tablet 3 Sig: take 1 tablet by mouth every 8 hours as needed documented in this encounterDoctors Hospital05-17-2024 NoteHNO ID: [id number] Author: KOFI [place] CT Service: Radiology Author [...] PATIENT PRESENTS WITH AN IMPLANTABLE OR ATTACHED RUBBER DOWN: No RADIOLOGY DEPARTMENT: CT; Exam(s) Completed: Brain STERO PERIPHERAL IV DATA: Not applicable SIGNED BY: KAYLEEN Sharma January 29, 2024 12:53 [facility]05-17-2024 NoteHNO ID: [id number] Author: AILYN NEUMANN RT(R) Service: ? Author [...] PATIENT PRESENTS WITH AN IMPLANTABLE OR ATTACHED RUBBER DOWN: No ALLERGIES: Reviewed and unchanged CONTRAST ALLERGY: [...] PATIENT PRESENTS WITH AN IMPLANTABLE OR ATTACHED RUBBER DOWN: No RADIOLOGY DEPARTMENT: CT; Exam(s) Completed: Brain STERO PERIPHERAL IV DATA: Not applicable SIGNED BY: KAYLEEN Sharma January 29, 2024 12:53 PM documented in this encounterDoctors Hospital05-17-2024 History of Present illness Narrative* Ailyn Neumann, RT(R) - 01/29/2024 12:45 PM EDT Radiology [...] PATIENT PRESENTS WITH AN IMPLANTABLE OR ATTACHED RUBBER DOWN: No ALLERGIES: Reviewed and unchanged CONTRAST ALLERGY: NO. EXAM: MRI - CONTRAST TYPE: GROUP II PERIPHERAL IV DATA: Ambulatory: A peripheral IV was started in the Left antecubital site with a Angio cath: 22 gauge. RADIOLOGY DEPARTMENT: MR; Exam(s) Completed: Head: Routine Brain SIGNATURE: Ailyn Neumann RDMS, RVT- Sheila ([facility]) PATIENT NAME: Kourtney Novak DATE: January 29, 2024 TIME: 1:06 PM documented in this encounterDoctors Hospital05-15-2024 Telephone encounter Note * Telephone Encounter - Zulema Wood MD - 01/27/2024 3:29 PM EDT The following approved medication requests have been transmitted electronically. Requested Prescriptions Pending Prescriptions Disp Refills etodolac (LODINE) 400 mg tablet 60 tablet 3 Sig: One tab po bid prn Zulema Wood MD [facility]05-15-2024 Miscellaneous Notes* Telephone Encounter - Zulema Wood MD - 01/27/2024 3:29 PM EDT The following approved medication requests have been transmitted electronically. Requested Prescriptions Pending Prescriptions Disp Refills etodolac (LODINE) 400 mg tablet 60 tablet 3 Sig: One tab po bid prn Zulema Wood MD * Telephone Encounter - Rohit Khan MA - 01/27/2024 2:26 PM EDT Most recent Rheumatology visit: 09/28/2023 (with Zulema Wood) Rheumatology Care Team: None on file Recent Office Visits - This Specialty 09/28/2023 Inflammatory arthritis Rheumatology Zulema Wood MD 09/29/2022 Inflammatory arthritis Rheumatology Zulema Wood MD 01/20/2022 Inflammatory arthritis Rheumatology Zulema Wood MD Upcoming Rheumatology Appointments - Next 365 Days Visit Type Date Time Department [facility] 05/30/2024 9:40 AM [facility] Last Ophthalmology Check for Plaquenil (Hydroxychloroquine) [...] Instance) Lab Orders None documented in this encounterDoctors Hospital05-15-2024 Telephone encounter Note * Telephone Encounter - Rohit Khan MA - 01/27/2024 2:26 PM EDT Most recent Rheumatology visit: 09/28/2023 (with Zulema Wood) Rheumatology Care Team: None on file Recent Office Visits - This Specialty 09/28/2023 Inflammatory arthritis Rheumatology Zulema Wood MD 09/29/2022 Inflammatory arthritis Rheumatology Zulema Wood MD 01/20/2022 Inflammatory arthritis Rheumatology Zulema Wood MD Upcoming Rheumatology Appointments - Next 365 Days Visit Type Date Time Department [facility] 05/30/2024 9:40 AM [facility] Last Ophthalmology Check for Plaquenil (Hydroxychloroquine) [...] Open Future (Single Instance) Lab Orders None [facility] Telephone encounter Note* Telephone Encounter - Shakila Phillips RN - 01/19/2024 10:39 AM EDT [...] discussion and consent. Both appointments were confirmed. [facility] Miscellaneous Notes* Telephone Encounter - Shakila Phillips RN - 01/19/2024 10:39 AM EDT [...] appointments were confirmed. * Telephone Encounter - Shakila Phillips RN - 01/19/2024 9:30 AM EDT Spoke with Ms Kourtney Novak today confirming surgery on 04/11/[address] Erik Pineda. Right middle sphenoid wing Preoperative appointments will be scheduled ~ 2 weeks prior to surgery date at a [facility] facility closer to the patient's home. Shakila Phillips RN, Roll Forger documented in this encounterDoctors Hospital05-07-2024 Telephone encounter Note * Telephone Encounter - Shakila Phillips RN - 01/19/2024 9:30 AM EDT Spoke with Ms Kourtney Novak today confirming surgery on 04/11/[address] Erik Pineda. Right middle sphenoid wing Preoperative appointments will be scheduled ~ 2 weeks prior to surgery date at a [facility] facility closer to the patient's home. Shakila Phillips RN, Roll Forger [facility]04-26-[facility]24 Telephone encounter Note* Telephone Encounter - Rohit Khan MA - 01/08/2024 3:14 PM EDT Lab results received from [facility]. Placed in dr Wood folder for review,copy sent to scanning. [facility] Miscellaneous Notes* Telephone Encounter - Rohit Khan MA - 01/08/2024 3:14 PM EDT Lab results received from [facility]. Placed in dr Wood foldbetty for review,copy sent to scanning. documented in this encounterDoctors Hospital04-23-2024 Telephone encounter Note * Telephone Encounter - Shakila Phillips RN - 01/05/2024 1:04 PM EDT Spoke with Ms. Kourtney Novak today confirming surgery on 03/28/[address] Erik Pineda. Preoperative appointments to be scheduled at a [facility] facility near the patient's home. [facility] Miscellaneous Notes* Telephone Encounter - Shakila Phillips RN - 01/05/2024 1:04 PM EDT Spoke with Ms. Kourtney Novak today confirming surgery on Thu03/28/[address] Erik Pineda. Preoperative appointments to be scheduled at a [facility] facility near the patient's home. documented in this encounterDoctors Hospital04-22-2024 Telephone encounter Note * Telephone Encounter - Michelle Thompson MA - 01/04/2024 4:17 PM EDT Orders faxed. Confirmation received. [facility] Miscellaneous Notes* Telephone Encounter - Michelle Thompson MA - 01/04/2024 4:17 PM EDT Orders faxed. Confirmation received. * Telephone Encounter - Michelle Thompson MA - 01/04/2024 2:43 PM EDT Printed labs. Sent msg to pt to clarify which [facility] to fax to. Labs/Fax sheet in Michelle'slime green folder. Please fax once clarification is received. * Telephone Encounter - Zulema Wood MD - 01/04/2024 2:03 PM EDT Labs are ordered, please print and fax per patient request. Zulema Wood MD * Telephone Encounter - Verenice Ga RN - 01/04/2024 1:45 PM EDT Patient calling Needs 01/01/24 Lab Orders in [facility] please (pended) Also requesting to FAX 01/01/24 Lab Orders to [facility] She will send their FAX # in My Chart documented in this encounterDoctors Hospital04-22-2024 Telephone encounter Note * Telephone Encounter - Michelle Thompson MA - 01/04/2024 2:43 PM EDT Printed labs. Sent MC msg to pt to clarify which [facility] to fax to. Labs/Fax sheet in Michelle'slime green folder. Please fax once clarification is received. [facility] Telephone encounter Note* Telephone Encounter - Zulema Wood MD - 01/04/2024 2:03 PM EDT Labs are ordered, please print and fax per patient request. Zulema Wood MD [facility] Telephone encounter Note* Telephone Encounter - Verenice Ga RN - 01/04/2024 1:45 PM EDT Patient calling Needs 01/01/24 Lab Orders in [facility] please (pended) Also requesting to FAX 01/01/24 Lab Orders to [facility] She will send their FAX # in My Chart [facility]03-[facility] Miscellaneous Notes* Telephone Encounter - Tory [...] if patient had any question please call [phone]. My Chart Message also sent. * Telephone Encounter - Zulema Wood MD - 11/30/2023 10:21 AM EDT She needs her eyes examined yearly. The following approved medication requests have been transmitted electronically. Requested Prescriptions Signed Prescriptions Disp Refills hydrOXYchloroQUINE (PLAQUENIL) 200 mg tablet 60 tablet 3 Sig: take 1 tablet by mouth twice daily Authorizing Provider: ZULEMA WOOD MD * Telephone Encounter - Stephane Gamboa OCCA - 11/30/2023 8:45 AM EDT Most recent Rheumatology visit: 09/28/2023 (with Zulema Wood) Rheumatology Care Team: None on file Recent Office Visits - This Specialty 09/28/2023 Inflammatory arthritis Rheumatology Zulema Wood MD 09/29/2022 Inflammatory arthritis Rheumatology Zulema Wood MD 01/20/2022 Inflammatory arthritis Rheumatology Zulema Wood MD Upcoming Rheumatology Appointments - Next 365 Days Visit Type Date Time Department [facility] 05/30/2024 9:40 AM [facility] Last Ophthalmology Check for Plaquenil (Hydroxychloroquine) [...] Instance) Lab Orders None documented in this encounterDoctors Hospital02-29-2024 Miscellaneous Notes* Telephone Encounter - Zulema Wood MD - 11/12/2023 3:03 PM EST The following approved medication requests have been transmitted electronically. Requested Prescriptions Pending Prescriptions Disp Refills predniSONE (DELTASONE) 5 mg tablet 60 tablet 3 Si-2 tabs po qd Zulema Wood MD * Telephone Encounter - Tory Thomas LPN - 11/12/2023 2:18 PM EST Most recent Rheumatology visit: 09/28/2023 (with Zulema Wood) Rheumatology Care Team: None on file Recent Office Visits - This Specialty 09/28/2023 Inflammatory arthritis Rheumatology Zulema Wood MD 09/29/2022 Inflammatory arthritis Rheumatology Zulema Wood MD 01/20/2022 Inflammatory arthritis Rheumatology Zulema Wood MD Upcoming Rheumatology Appointments - Next 365 Days Visit Type Date Time Department [facility] 05/30/2024 9:40 AM [facility] Last Ophthalmology Check for Plaquenil (Hydroxychloroquine) [...] Instance) Lab Orders None documented in this encounterDoctors Hospital02-28-2024 Miscellaneous Notes* Telephone Encounter - Zulema Wood MD - 11/11/2023 3:11 PM EST The following approved medication requests have been transmitted electronically. Requested Prescriptions Pending Prescriptions Disp Refills hydrOXYchloroQUINE (PLAQUENIL) 200 mg tablet 60 tablet 6 Sig: Take 1 tablet by mouth two times a day. Zulema Wood MD * Telephone Encounter - Tory Thomas LPN - 11/11/2023 12:42 PM EST Scan on 07/15/2022 1:08 PM by Provider, External, [id number]: Consultation - Ophthalmology Most recent Rheumatology visit: 09/28/2023 (with Zulema Wood) Rheumatology Care Team: None on file Recent Office Visits - This Specialty 09/28/2023 Inflammatory arthritis Rheumatology Zulema Wood MD 09/29/2022 Inflammatory arthritis Rheumatology Zulema Wood MD 01/20/2022 Inflammatory arthritis Rheumatology Zulema Wood MD Upcoming Rheumatology Appointments - Next 365 Days Visit Type Date Time Department [facility] 05/30/2024 9:40 AM [facility] Last Ophthalmology Check for Plaquenil (Hydroxychloroquine) [...] Instance) Lab Orders None documented in this encounterDoctors Hospital02-28-2024 Miscellaneous Notes* Telephone Encounter - Shakila Phillips RN - 11/11/2023 11:37 AM EST Spoke with EstefanyKourtney Johnson Edwarderic today following up on the [employer] message from 10/08/2023. She sent a message about having symptoms of blurry vision and was advised to schedule an appointment with ophthalmology. Today the patient stated that the blurry vision was 1 incident and that she did not have any visionchanges since. She was made aware to send an update or call for any questions or concerns. Shakila Phillips RN, Roll Forger documented in this encounterDoctors Hospital02-27-2024 Miscellaneous Notes* Telephone Encounter - Natahly Kaplan MA - 11/10/2023 9:56 AM EST Most recent Rheumatology visit: 09/28/2023 (with Zulema Wood) Rheumatology Care Team: None on file Recent Office Visits - This Specialty 09/28/2023 Inflammatory arthritis Rheumatology Zulema Wood MD 09/29/2022 Inflammatory arthritis Rheumatology Zulema Wood MD 01/20/2022 Inflammatory arthritis Rheumatology Zulema Wood MD Upcoming Rheumatology Appointments - Next 365 Days Visit Type Date Time Department [facility] 05/30/2024 9:40 AM [facility] Last Ophthalmology Check for Plaquenil (Hydroxychloroquine) [...] Instance) Lab Orders None documented in this encounterDoctors Hospital10-23-2023 Miscellaneous Notes* Telephone Encounter - Shakila Phillips RN - 07/06/2023 3:23 PM EDT Spoke with Ms. Kourtney Novak. We discussed that it is so far out to schedule surgery in March 2024. We discussed option of possible surgery dates. She will be contacted during late December- January 2024 toconfirm the date of surgery and schedule the preoperative appointments. Shakila Phillips RN, Roll Forger * Telephone Encounter - Justine Pagan - 07/02/2023 3:04 PM EDT General Call Caller : Pt Contact Reason for Call : Pt would like to go forward w scheduling surgery. However, she would like surgeryto be scheduled in March 2024, pt would like to discuss further Patient requesting return call ? Yes documented in this encounterDoctors Hospital10-23-2023 Miscellaneous Notes* Telephone Encounter - Shakila Phillips RN - 07/06/2023 3:21 PM EDT Spoke with Ms. Kourtney Novak. We discussed that it is so far out to schedule surgery in March 2024. We discussed option of possible surgery dates. She will be contacted during late December- January 2024 toconfirm the date of surgery and schedule the preoperative appointments. Shakila Phillips RN, Roll Forger documented in this encounterDoctors Hospital10-17-2023 Instructions* Patient Instructions* Stephanie Moy APRN.CNP - 06/30/2023 11:30 AM EDT [...] (due back Apr 2024). documented in this encounterDoctors Hospital10-17-2023 Nurse Note* Bess Do Ma - 06/30/2023 10:52 AM EDT Additional intake questions: Has the patient had fever, nausea, vomiting, diarrhea, constipation, fatigue for > 1 week? No Does the patient have a decreased appetite? No Does patient want to see a Salesperson Floor Coverings? No (yes to any of above refer patient to schedulers for dietitian appointment) ) Does patient have any new or increased numbness or tingling of extremities? No Is patient interested in fertility information? No Does patient need any prescription refills? No Does patient have an advanced directive in place? No, Patient referred to Resource Center documented in this encounterDoctors Hospital10-17-2023 History of Present illness Narrative* Erik Pineda MD - 06/30/2023 10:49 AM EDT Images from the original note were not included. SECTION OF SKULL BASE SURGERY MINIMALLY INVASIVE CRANIAL BASE & PITUITARY SURGERY PROGRAM [facility] CC: Patient Care Team: Jesus Gonzalez MD as PCP - General (Family Medicine) Laron Lou DO - [facility] ASSESSMENT: In summary, Kourtney Novak [...] done locally and follow-up via virtual visit. Stephanie Moy APRN.ENGINE LATHE SET UP OPERATOR TOOL I have reviewed the progess note obtained [...] which included preparing to see the patient, [id number] patient care, completing clinical documentation, performing a [...] to the prior exam. documented in this encounterDoctors Hospital10-13-2023 Instructions* Patient Instructions* Fahad Corey MD [...] 26, 2023 5:39 PM documented in this encounterDoctors Hospital10-13-2023 History of Present illness Narrative* Fahad Corey MD - 06/26/2023 5:06 PM EDT [facility] NEW EVALUATION June 26, 2023 5:00 PM I have communicated my name and active licensure. The patient's identity and physical location wereverified at the time of this visit. Either the patient or their legal welding equipment sales representative has been informed of the [...] 26, 2023 5:36 PM documented in this encounterDoctors Hospital08-30-2023 Miscellaneous Notes* Telephone Encounter - Moira Goodrich APRN.ENGINE LATHE SET UP OPERATOR TOOL - 05/13/2023 1:13 PM EDT Time Frame: Next available Provider: Carmine (possible GKRS) Referring: self Please instruct patient to hand carry/ upload images prior to appt Images also requested via Electronically Dx: Multiple meningiomas with interval growth Multiple meningiomas with interval growth since 2015. MRI done for dizziness. [facility] [place] [address] [place] [address] MRI Report Signed Patient: Kourtney Novak MR#: [id number] : 1975 Acct:[id number] Age/Sex: 47 / F ADM Date: 05/06/23 Loc: MR Room: Type: [facility] Attending Dr: Jesus Gonzalez MD Copies to: Jesus Gonzalez MD Ordering Provider: Jesus Gonzalez MD Date of Service: 05/06/23 MR/MR [...] frontal subcortical white matter. documented in this encounterDoctors Hospital07-31-2023 Miscellaneous Notes* Telephone Encounter - Zulema Wood MD - 04/13/2023 3:08 PM EDT The following approved medication requests have been transmitted electronically. Requested Prescriptions Pending Prescriptions Disp Refills DULoxetine (CYMBALTA) 60 mg capsule 30 capsule 3 Sig: Take 1 capsule by mouth once daily. Zulema Wood MD * Telephone Encounter - Beti Monk LPN - 04/13/2023 11:37 AM EDT Most recent Rheumatology visit: 09/29/2022 (with Zulema Wood) Recent Office Visits - This Specialty 09/29/2022 Inflammatory arthritis Rheumatology Zulema Wood MD 01/20/2022 Inflammatory arthritis Rheumatology Zulema Wood MD 07/04/2021 Pain in joint, multiple sites Rheumatology Zulema Wood MD Upcoming Rheumatology Appointments - Next 365 Days Visit Type Date Time Department [facility] 09/28/2023 3:00 PM [facility] Last Ophthalmology Check for Plaquenil (Hydroxychloroquine) [...] Instance) Lab Orders None documented in this encounterDoctors Hospital07-31-2023 Miscellaneous Notes* Telephone Encounter - Zulema Wood MD - 04/13/2023 3:08 PM EDT The following approved medication requests have been transmitted electronically. Requested Prescriptions Pending Prescriptions Disp Refills hydrOXYchloroQUINE (PLAQUENIL) 200 mg tablet [Pharmacy Med Name: hydroxychloroquine 200 mg tablet] 60 tablet 6 Sig: TAKE 1 TABLET BY MOUTH TWICE DAILY Zulema Wood MD * Telephone Encounter - Tory Thomas LPN - 04/13/2023 10:58 AM EDT Scan on 07/15/2022 1:08 PM by Provider, External, PAMackC: Consultation - Ophthalmology Most recent Rheumatology visit: 09/29/2022 (with Zulema Wood) Recent Office Visits - This Specialty 09/29/2022 Inflammatory arthritis Rheumatology Zulema oWod MD 01/20/2022 Inflammatory arthritis Rheumatology Zulema Wood MD 07/04/2021 Pain in joint, multiple sites Rheumatology Zulema Wood MD Upcoming Rheumatology Appointments - Next 365 Days Visit Type Date Time Department [facility] 09/28[facility]2023 3:00 PM [facility] Last Ophthalmology Check for Plaquenil (Hydroxychloroquine) [...] Instance) Lab Orders None documented in this encounterDoctors Hospital07-18-2023 Evaluation note* Encounter Date Diagnosis Assessment Notes Treatment Notes Treatment Clinical Notes Mar, Nausea & vomiting (ICD-10 - R11. 2) Mar,astroparesis due to secondary diabetes (ICD-10 - E13.43) Mar,loating (ICD-10 - R14.0) Mar,elching (ICD-10 - R14.2) Mar,Overflow diarrhea (ICD-10 - R19.7) Mar,onstipation (ICD-10 - K59.00)Continue amitiza 24 mcg twice a day Continue senokot 2 tablets daily Pt to do bowel prep today-miralax f/u with Alexsander in 3 weeks Mar,OtherObtain labs from Dr. Gonzalez regarding diabetes [facility] Other 06-26-2023 Miscellaneous Notes* Telephone Encounter - Tory Thomas LPN - 03/09/2023 11:55 AM EDT Refill to soon refilled 01/19/2023 30 capsules with 3 refilles documented in this encounterDoctors Hospital05-08-2023 Miscellaneous Notes* Telephone Encounter - Zulema Wood MD - 01/19/2023 4:37 PM EDT The following approved medication requests have been transmitted electronically. Requested Prescriptions Pending Prescriptions Disp Refills DULoxetine (CYMBALTA) 60 mg capsule [Pharmacy Med Name: duloxetine 60 mg capsule,delayed release] 30 capsule 3 Sig: TAKE 1 CAPSULE BY MOUTH EVERY DAY Zulema Wood MD * Telephone Encounter - Xin Kim RN - 01/19/2023 2:47 PM EDT Pt to have follow up in March, we cancelled the OV and rescheduled for Jun 2023. Pt will need refillto hold her until then Most recent Rheumatology visit: 09/29/2022 (with Zulema Wood) Recent Office Visits - This Specialty 09/29/2022 Inflammatory arthritis Rheumatology Zulema Wood MD 01/20/2022 Inflammatory arthritis Rheumatology Zulema Wood MD 07/04/2021 Pain in joint, multiple sites Rheumatology Zulema Wood MD Upcoming Rheumatology Appointments - Next 365 Days Visit Type Date Time Department [facility] 06/26/2023 10:40 AM [facility] Last Ophthalmology Check for Plaquenil (Hydroxychloroquine) [...] Instance) Lab Orders None documented in this encounterDoctors Hospital04-05-2023 Evaluation note* Encounter Date Diagnosis Assessment Notes Treatment Notes Treatment Clinical Notes Dec, 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 May repeat ulnar wrist cortisone injection when needed. Patient instructed on the use of Voltaren Gel in the meantime Dec,Right wrist pain (ICD-10 - M25.531) Dec,Other specified postprocedural states (ICD-10 - Z98.890) [facility] Other 03-30-2023 Miscellaneous Notes* Addendum Note - Zulema Wood MD - 12/11/2022 12:52 PM EDTAddended by: ZULEMA WOOD on: 12/11/2022 12:52 PM Modules accepted: Orders * Telephone Encounter - Zulema Wood MD - 12/11/2022 12:51 PM EDT The following approved medication requests have been transmitted electronically. Requested Prescriptions Signed Prescriptions Disp Refills predniSONE (DELTASONE) 5 mg tablet 60 tablet 3 Si-2 tabs po qd Zulema Wood MD documented in this encounterDoctors Hospital01-16-2023 Miscellaneous Notes* Telephone Encounter - Zulema Wood MD - 09/29/2022 4:00 PM EST The following approved medication requests have been transmitted electronically. Requested Prescriptions Signed Prescriptions Disp Refills hydrOXYchloroQUINE (PLAQUENIL) 200 mg tablet 60 tablet 6 Sig: Take 1 tablet by mouth twice daily. Authorizing Provider: ZULEMA WOOD MD * Telephone Encounter - Zoie Morales - 09/29/2022 3:49 PM EST Patient said she needed a refill for plaquenil when she was at check out. Thank you. 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 Decrease to 81 mg Aspirin once per day x 3 months then begin to wean off. Jul,ther specified postprocedural states (ICD-10 - Z98.890) [facility] Other 11-03-2022 Evaluation note* Encounter Date Diagnosis Assessment Notes Treatment Notes Treatment Clinical Notes Jul, Biceps tendonosis of right shoul karen (ICD-10 - M67.813) Physical exam was preformed today, we feel the best treatment for the patient will be a cortisone injection today. We performed a 2/1cc Marcaine / Kenalog cortisone injection into the bicep tendon under sterile technique. Patient tolerated the injection well without adverse reaction. We will f/u with the patient on a PRN basis. Jul,Traumatic partial tear of right biceps tendon, initial encounter (ICD-10 - S46.211A) Jul,rthritis of right acromioclavicular joint (ICD-10 - M19.011) Jul,Tear of right supraspinatus tendon (ICD-10 - M75.101) Jul,cute pain of right shoulder (ICD-10 - M25.511) [facility] Other 10-12-2022 Evaluation note* Encounter Date Diagnosis Assessment Notes Treatment Notes Treatment Clinical Notes Jun, Biceps tendinitis of left should er (ICD-10 - M75.22) Extensive discussion about current [...] tolerated the injection well without adverse reaction. Jun,cute pain of left shoulder (ICD-10 - M25.512) [facility] Other 07-18-2022 Evaluation note* Encounter Date Diagnosis [...] come in as needed for an injection. Mar,rthritis of right acromioclavicular joint (ICD-10 - M19.011) Mar,Tear of right supraspinatus tendon (ICD-10 - M75.101) Mar,cute pain of right shoulder (ICD-10 - M25.511) [facility] Other 05-16-2022 Evaluation note* Encounter Date Diagnosis Assessment Notes Treatment Notes Treatment Clinical Notes January, Arthritis of right acromioclavic ular joint (ICD-10 - M19.011) January,Traumatic partial tear of right biceps tendon, initial encounter (ICD-10 - S46.211A) January,Tear of right supraspinatus tendon (ICD-10 - M75.101) January,cute pain of right shoulder (ICD-10 - M25.511) January,cute pain of left shoulder (ICD-10 - M25.512) January,2Strain of left trapezius muscle, initial encounter (ICD-10 - S46.812A) We performed a 7/3cc marcaine / kenalog cortisone injection into the bicep of the left arm under sterile technique. Patient tolerated the injection well without adverse reaction. Patient will call ifinjection did not work well, in that case we will order an MRI for futher review. 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) January,ight wrist pain (ICD-10 - M25.531)Right ulnar wrist injected with cortisone under sterile technique, patient tolerated well January,ther specified postprocedural states (ICD-10 - Z98.890) [facility] Other 05-09-2022 Evaluation note* Encounter Date Diagnosis Assessment Notes Treatment Notes Treatment Clinical Notes January, Arthritis of right acromioclavic ular joint (ICD-10 - M19.011) January,Traumatic partial tear of right biceps tendon, initial encounter (ICD-10 - S46.211A) January,Tear of right supraspinatus tendon (ICD-10 - M75.101) January,cute pain of right shoulder (ICD-10 - M25.511) January,cute pain of left shoulder (ICD-10 - M25.512) January,train of left trapezius muscle, initial encounter (ICD-10 - S46.812A)A 1/1cc marcaine / kenalog cortisone injection was performed into the upper trazepious musculature under sterile technique. Patient tolerated the injection well with no adverse reaction. Contiue oralprednisone as prescribed by Neha ANDERSON. [facility] Other 05-09-2022 History of Present illness Narrative* Zulema Wood MD - 01/20/2022 11:05 AM EDT [...] to side effects F/U:6m Check following: -none Zulema Wood MD documented in this encounterDoctors Hospital04-12-2022 Evaluation note* Encounter Date Diagnosis Assessment Notes Treatment Notes Treatment Clinical Notes Dec, Osteochondrosis of lunate of rig ht wrist (ICD-10 - M92.211) Radiographs reviewed with patient. Discussed with patient she is progressing well from surgery. Discussed with patient to continue to progress with motion and strength exercises. Instructed patient to continue with aspirin to help with blood flow. Dec,ther specified postprocedural states (ICD-10 - Z98.890) [facility] Other 03-21-2022 Evaluation note* Encounter Date Diagnosis Assessment Notes Treatment Notes Treatment Clinical Notes Nov, Arthritis of right acromioclavic ular joint (ICD-10 - M19.011) Nov,Traumatic partial tear of right biceps tendon, initial encounter (ICD-10 - S46.211A) Extensive discussion about current condition and treatment options available. A 2/1cc marcaine/kenalog cortisone injection was performed into the region of the intertubercular groove and proximal biceps tendon. Patient tolerated the injection well without adverse reaction. Maintain motion and strength with daily exercise Nov,Tear of right supraspinatus tendon (ICD-10 - M75.101) Nov,cute pain of right shoulder (ICD-10 - M25.511) [facility] Other 03-09-2022 Evaluation note* Encounter Date Diagnosis Assessment Notes Treatment Notes Treatment Clinical Notes Nov, Osteochondrosis of lunate of rig ht wrist (ICD-10 - M92.211) Patient instructed on gentle ROM exercises. Continue Aspirin. Prescription given for edema glove Nov,ther specified postprocedural states (ICD-10 - Z98.890) [facility] Other 01-25-2022 Evaluation note* Encounter Date Diagnosis Assessment Notes Treatment Notes Treatment Clinical Notes Sep, Osteochondrosis of lunate of rig ht wrist (ICD-10 - M92.211) Patient will proceed with surgery on the right wrist. Risks and benefits of procedure explained to patient; patient verbalizes understanding. [facility] Other 12-15-2021 Evaluation note* Encounter Date Diagnosis Assessment Notes Treatment Notes Treatment Clinical Notes Aug, Osteochondrosis of lunate of rig ht wrist (ICD-10 - M92.211) Right wrist injected with cortisone under sterile technique, patient tolerated well. Patient would like to proceed with surgical treatment in October [facility] Other 11-29-2021 Evaluation note* Encounter Date Diagnosis Assessment Notes Treatment Notes Treatment Clinical Notes Jul, Carpal tunnel syndrome of right wrist (ICD-10 - G56.01) [facility] Other 10-05-2021 Evaluation note* Encounter Date Diagnosis Assessment Notes Treatment Notes Treatment Clinical Notes Jun, De Quervain's tenosynovitis, rig ht (ICD-10 - M65.4) Jun,Osteochondrosis of lunate of right wrist (ICD-10 - M92.211) Discussed with patient surgical treatment options. Patient states she would like to wait until nextyear to have surgery. Instructed patient to continue with aspirin. Instructed patient to continue to wear brace as needed for pain and support [facility] Other 09-22-2021 Evaluation note* Encounter Date Diagnosis Assessment Notes Treatment Notes Treatment Clinical Notes May, Tendonitis (ICD-10 - M77.9) May,Traumatic partial tear of right biceps tendon, initial encounter (ICD-10 - S46.211A) Extensive discussion was had about the current condition and treatment options available. Allow 7-10 days for bicep pain to settle down. Once arm is starting to feel better patient instructed to workon strengthening and motion. We discussed ordering an MRI patient declined. We can inject in the future as needed May,rthritis of right acromioclavicular joint (ICD-10 - M19.011) May,cute pain of right shoulder (ICD-10 - M25.511) May,e Quervain's tenosynovitis, right (ICD-10 - M65.4) May,Tenosynovitis (ICD-10 - M65.9) May,Tear of right supraspinatus tendon (ICD-10 - M75.101) [facility] Other 06-21-2021 NoteHNO ID: [id number] Author: Hu Blankenship Service: Radiology Author Type: Front End Manager Type: Progress Notes Filed: 03/04/2021 1:11 PM [...] BY: Hu Blankenship March 04, 2021 1:10 [facility]* Clinical Note Date No Information [facility] Work Phone: Discharge summary* Clinical Note Date No Information [facility] Work Phone: Evaluation note* Diagnosis Inflammatory arthritis- Primary Unspecified inflammatory polyarthropathy Myalgia Mylagia and myositis, unspecified documented in this encounter [facility] HospitalEvaluation noteNo InformationNortEn[facility] Other Evaluation noteNo assessment information available [facility] Work Phone: Evaluation note* Diagnosis Inflammatory arthritis- Primary Unspecified inflammatory polyarthropathy Myalgia Mylagia and myositis, unspecified Fibromyalgia Mylagia and myositis, unspecified documented in this encounter [facility] note* Diagnosis Medication overuse headache- Primary Drug induced headache, not elsewhere classified Brain mass Unspecified condition of brain Meningioma (HCC) Benign neoplasm of cerebral meninges Chronic daily headache Headache documented in this encounter [facility] note* Diagnosis Intracranial meningioma (HCC)- Primary Benign neoplasm of cerebral meninges documented in this encounter [facility] note* Diagnosis Onset Date Resolution Status Osteochondrosis of lunate of right wrist acuteRight wrist painacute [facility] Work Phone: Evaluation note* Diagnosis 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) Benign neoplasm of cerebral meninges documented in this encounter [facility] note* Diagnosis Benign neoplasm of meninges (HCC) Benign neoplasm of cerebral meninges documented in this encounter [facility] note* Diagnosis Chronic daily headache Headache documented in this encounter [facility] note* Diagnosis Intracranial meningioma (HCC)- Primary Benign neoplasm of cerebral meninges documented in this encounter [facility] note* Diagnosis Meningioma (HCC)- Primary Benign neoplasm of cerebral meninges Chronic daily headache Headache Intracranial meningioma (HCC) Benign neoplasm of cerebral meninges Preop testing Preoperative examination, unspecified documented in this encounter [facility] note* Diagnosis Onset Date Resolution Status Osteochondrosis of lunate of right wrist acuteRight wrist painacuteAcute pain of right shoulderacuteBiceps tendonitis acute [facility] Work Phone: Evaluation note* Diagnosis Onset Date Resolution Status Acute pain of right shoulder acuteBiceps tendonitisacuteOsteochondrosis of lunate of right wristacuteRight wrist painacute [facility] Work Phone: evaluation note* Diagnosis Inflammatory arthritis- Primary Unspecified inflammatory polyarthropathy Fibromyalgia Mylagia and myositis, unspecified Medication monitoring encounter Encounter for therapeutic drug monitoring documented in this encounter [facility] note* Diagnosis Tooth infection- Primary Acute apical periodontitis of pulpal origin documented in this encounter [facility] [place], operated by [facility] note* Diagnosis Inflammatory arthritis- Primary Unspecified inflammatory polyarthropathy documented in this encounter [facility] note* Diagnosis Onset Date Resolution Status Admit Date Osteochondrosis of lunate of right wrist acuteJanuary 2024 2:48pmRight wrist painacuteJanuary 2024 2:48pm [facility] Work Phone: Evaluation note* Diagnosis Encounter for medication monitoring- Primary Encounter for therapeutic drug monitoring documented in this encounter [facility] note* Diagnosis Fibromyalgia Mylagia and myositis, unspecified documented in this encounter [facility] note* Diagnosis Inflammatory arthritis- Primary Unspecified inflammatory polyarthropathy Fibromyalgia Mylagia and myositis, unspecified Encounter for medication monitoring Encounter for therapeutic drug monitoring documented in this encounter [facility] note* Diagnosis Chronic daily headache Headache documented in this encounter [facility] note* Diagnosis Chronic daily headache Headache Intracranial meningioma (HCC) Benign neoplasm of cerebral meninges Preop testing Preoperative examination, unspecified documented in this encounter [facility] note* Diagnosis Pre-op evaluation- Primary Preoperative [...] index (BMI) of40.0 to 44.9 in adult Inflammatory arthritis Unspecified inflammatory polyarthropathy Intracranial meningioma (HCC)- Primary Benign neoplasm of cerebral meninges Intracranial meningioma (HCC) Benign neoplasm of cerebral meninges Preop testing Preoperative examination, unspecified documented in this encounter [facility] note* Diagnosis Pre-op evaluation- Primary Preoperative [...] index (BMI) of40.0 to 44.9 in adult Inflammatory arthritis Unspecified inflammatory polyarthropathy Intracranial meningioma (HCC) Benign neoplasm of cerebral meninges Preop testing Preoperative examination, unspecified Intracranial meningioma (HCC) Benign neoplasm of cerebral meninges Preop testing Preoperative examination, unspecified documented in this encounter [facility] Hospital[facility]* Diagnosis Pre-op evaluation- Primary Preoperative examination, [...] index (BMI) of40.0 to 44.9 in adult Inflammatory arthritis Unspecified [...] Associated Problem(s): COPD (chronic obstructive pulmonary disease) ([facility]) Assessment: Stable with nebulizer treatments Denies any SOB Denies any Home oxygen use Lungs clear on exam SpO2 in office today 96% Monitored by PCP * Assessment & Plan Note - Mehul Martin APRN.CNP - 02/14/2025 8:00 AM EDT Associated Problem(s): Fibromyalgia Assessment: Controlled with Cymbalta Monitored by [facility] rheumatology documented in this encounter [facility] HospitalEvaluation [facility]* Diagnosis Meningioma (HCC)- Primary Benign [...] index (BMI) of40.0 to 44.9 in adult (HCC) Cerebral edema [...] index (BMI) of40.0 to 44.9 in adult (HCC) Inflammatory arthritis Unspecified inflammatory polyarthropathy Inflammatory arthritis Unspecified inflammatory polyarthropathy [facility]* Diagnosis Meningioma (HCC)- Primary Benign neoplasm of cerebral meninges Intracranial meningioma (HCC) Benign neoplasm of cerebral meninges Preop testing Preoperative examination, unspecified Chronic daily headache Headache 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) COPD (chronic obstructive pulmonary disease) ([facility]) Chronic airway obstruction, not elsewhere classified Diabetes mellitus ([facility]) Type II or unspecified type diabetes mellitus [...] index (BMI) of40.0 to 44.9 in adult (HCC) Cerebral edema [...] index (BMI) of40.0 to 44.9 in adult (HCC) Inflammatory arthritis Unspecified inflammatory polyarthropathy Benign neoplasm of meninges (HCC)- Primary Benign neoplasm of cerebral meninges documented [facility] this encounter [facility]* Diagnosis Meningioma (HCC)- Primary Benign neoplasm [...] index (BMI) of40.0 to 44.9 in adult (HCC) Cerebral edema [...] index (BMI) of40.0 to 44.9 in adult (HCC) Inflammatory arthritis Unspecified inflammatory polyarthropathy Fibromyalgia Mylagia and myositis, unspecified documented [facility] this encounter [facility]* Diagnosis Meningioma (HCC)- Primary Benign neoplasm of cerebral meninges Intracranial meningioma (HCC) Benign neoplasm of cerebral meninges Preop testing Preoperative examination, unspecified Chronic daily headache Headache 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) COPD (chronic obstructive pulmonary disease) (HCC) Chronic airway obstruction, not elsewhere classified Diabetes mellitus ([facility]) Type II or unspecified type diabetes mellitus [...] index (BMI) of40.0 to 44.9 in adult (HCC) Cerebral edema [...] index (BMI) of40.0 to 44.9 in adult (HCC) Inflammatory arthritis Unspecified inflammatory polyarthropathy S/P craniotomy- Primary Other postprocedural status Intracranial meningioma (HCC) Benign neoplasm of cerebral meninges Postop check Follow-up examination, following unspecified surgery documented in this encounter [facility]* Diagnosis Meningioma (HCC)- Primary Benign [...] index (BMI) of40.0 to 44.9 in adult (HCC) Cerebral edema [...] index (BMI) of40.0 to 44.9 in adult (HCC) Inflammatory arthritis Unspecified inflammatory polyarthropathy Chronic daily headache Headache documented in this encounter [facility]* Diagnosis Meningioma (HCC)- Primary Benign [...] index (BMI) of40.0 to 44.9 in adult (HCC) Cerebral edema [...] index (BMI) of40.0 to 44.9 in adult (HCC) Inflammatory arthritis Unspecified inflammatory polyarthropathy S/P craniotomy- Primary Other postprocedural status [facility] Diagnosis Meningioma (HCC)- Primary Benign [...] index (BMI) of40.0 to 44.9 in adult ([facility]) Pre-op evaluation- Primary Preoperative examination, unspecified Anxiety [...] index (BMI) of40.0 to 44.9 in adult ([facility]) Inflammatory arthritis Unspecified inflammatory polyarthropathy Intracranial meningioma (HCC)- Primary Benign neoplasm of cerebral meninges Postprocedural state Other postprocedural status Dizziness and giddiness [facility]* Diagnosis Meningioma (HCC)- Primary Benign neoplasm [...] index (BMI) of40.0 to 44.9 in adult ([facility]) Pre-op evaluation- Primary Preoperative examination, unspecified Anxiety Anxiety state, unspecified Chronic obstructive pulmonary disease, unspecified COPD type ([facility]) Depression, unspecified depression type Type 2 diabetes mellitus without complication, without long-term current use of insulin ([facility]) Mixed hyperlipidemia Fibromyalgia Mylagia and myositis, unspecified Intracranial meningioma ([facility]) Benign neoplasm of cerebral meninges Preop testing Preoperative examination, unspecified MAREK (obstructive sleep apnea) Obstructive sleep apnea (adult) (pediatric) Gastroesophageal reflux disease, unspecified whether esophagitis present Hypothyroidism, unspecified type Class 3 severe obesity due to excess calories with serious comorbidity and body mass index (BMI) of40.0 to 44.9 in adult ([facility]) Inflammatory arthritis Unspecified inflammatory polyarthropathy Meningioma (HCC)- Primary Benign neoplasm of cerebral meninges Chronic daily headache Headache [facility] Diagnosis Meningioma (HCC)- Primary Benign neoplasm of cerebral meninges Intracranial meningioma ([facility]) Benign neoplasm of cerebral meninges Preop testing Preoperative examination, unspecified Chronic daily headache Headache Neoplasm causing mass effect and brain compression on adjacent structures ([facility]) COPD (chronic obstructive pulmonary disease) ([facility]) Chronic airway obstruction, not elsewhere classified Diabetes mellitus ([facility]) Type II or unspecified type diabetes mellitus [...] index (BMI) of40.0 to 44.9 in adult ([facility]) Pre-op evaluation- Primary Preoperative examination, unspecified Anxiety Anxiety state, unspecified Chronic obstructive pulmonary disease, unspecified COPD type ([facility]) Depression, unspecified depression type Type 2 diabetes mellitus without complication, without long-term current use of insulin ([facility]) Mixed hyperlipidemia Fibromyalgia Mylagia and myositis, unspecified Intracranial meningioma (HCC) Benign neoplasm of cerebral meninges Preop testing Preoperative examination, unspecified MAREK (obstructive sleep apnea) Obstructive sleep apnea (adult) (pediatric) Gastroesophageal reflux disease, unspecified whether esophagitis present Hypothyroidism, unspecified type Class 3 severe obesity due to excess calories with serious comorbidity and body mass index (BMI) of40.0 to 44.9 in adult (HCC) Inflammatory arthritis Unspecified inflammatory polyarthropathy Chronic daily headache Headache [facility] Diagnosis Fibromyalgia Unspecified myalgia and myositis documented in this encounter [facility] HealthcareEvaluation note* Diagnosis Rib pain on right side- Primary Sprain of costal cartilage, initial encounter Rib pain on right side documented in this encounter [facility] HealthcareHistory and physical note* Clinical Note Date No Information [facility] Work Phone: History general Narrative - Reported* Type Description Date Medical History GERD Medical HistorygastroparesisMedical HistorybipolarMedical HistoryDM IISurgical Historycarpal tunnelSurgical Historycystectomy-left breastSurgical Historyright neuroplasty, ulnar nerve at elbow08/2020Hospitalization Historysee above Hospitalization HistoryCOPD [place] Other Hisdpyw general Narrative - Reported* Type Description Date Medical History GERD Medical HistorygastroparesisMedical HistorybipolarMedical HistoryDM IIMedical HistoryCOPDSurgical Historycarpal tunnelSurgical Historycystectomy-left breast Surgical Historyright neuroplasty, ulnar nerve at elbow08/2020Surgical History appendectomy09/2021Hospitalization Historysee aboveHospitalization HistoryCOPD [place] Other Hisanzl general Narrative - Reported* Type Description Date Medical History GERD Medical HistorygastroparesisMedical HistorybipolarMedical HistoryDM IIMedical HistoryCOPDSurgical Historycarpal tunnelSurgical Historycystectomy-left breast Surgical Historyright neuroplasty, ulnar nerve at elbow08/2020Surgical History appendectomyurgical Historyright wrist PIN/core decompression Hospitalization Historysee aboveHospitalization HistoryCOPD [place] Other History general Narrative - Reported* Type Description Date Medical History GERD Medical HistorygastroparesisMedical HistorybipolarMedical HistoryDM IIMedical HistoryCOPDSurgical Historycarpal tunnelSurgical Historycystectomy-left breast Surgical Historyright neuroplasty, ulnar nerve at elbow08/2020Surgical History appendectomyurgical Historyright wrist PIN/core decompressionSurgical Historycubital tunnelHospitalization Historysee aboveHospitalization HistoryCOPD [place] Other History of Past illness Narrative* Condition Effective Dates (start - stop) O utcome No Information [facility] Work Phone: History of Present illness Narrative* Encounter Date Complaint History Of Prese nt Illness No Information [facility] Work Phone: Hospital Discharge instructions Additional Instructions Apply ice for the next 24 hours and then rotate heat Monitor your blood pressure at home and take the readings to your PCP Take the steroids that you were prescribed [place] for severe pain You cannot work or drive when taking [place] Breathing exercises as may you discussed to prevent further complications Follow with your [facility] Instructions* Date Instruction Additional Infor mation No Information [facility] Work Phone: Progress note* Clinical Note Date No Information [facility] Work Phone: Reason for referral (narrative)No reason for referral information availableOhiohealth [facility] Work Phone: Reason for referral (narrative)* Reason For Referral No Information [facility] Work Phone: Reason for visit Narrative* MRI/CT (Routine) - Closed SpecialtyDiagnoses / ProceduresReferred By ContactReferred To ContactMR IMAGING Diagnoses Intracranial meningioma (HCC) Preop testing Procedures MRI BRAIN WO/W IVCON MRI BRAIN BRAIN STEM W/O W/CONTRAST MATERIAL Erik Pineda MD [address] [place] [address] Phone: tel: fax: [place] [id number] Referral IDStatusReasonStkhoi DateExpiration DateVisits RequestedVisits [id number] Auto-Generated Referral [facility] of systems Narrative - Reported* System Pos/Neg Findings No Information [facility] Work Phone: Summary Purpose Family History No Family History Records Found Relationship Condition Age at Onset Recorded Date/T sarabjit grandparent Coronary artery disease Unknown fatherEpilepsyUnknownDiabetes mellitusUnknownHepatic cirrhosisUnknownHepatitis C virus infectionUnknownHypertensionUnknownHypercholesterolemiaUnknownNot SpecifiedHepatitis C virus infectionUnknown Relationship Condition Age at Onset Recorded Date/T sarabjit grandparent Coronary artery disease Unknown fatherEpilepsyUnknownDiabetes mellitusUnknownHepatic cirrhosisUnknownHepatitis C virus infectionUnknownHypertensionUnknownHypercholesterolemiaUnknownNot SpecifiedHepatitis C virus infectionUnknownfatherDeceasedUnknown Relationship Condition Age at Onset Recorded Date/T sarabjit grandparent Coronary artery disease Unknown fatherEpilepsyUnknownDiabetes mellitusUnknownHepatic cirrhosisUnknownHepatitis C virus infectionUnknownHypertensionUnknownHypercholesterolemiaUnknownmother Hepatitis C virus infectionUnknownfatherDeceasedUnknown Family Member Type Diagnosis Age At Onset Problem (finding)Family history of heart diseaseBrotherProblem (finding)Alive and wellFatherProblem (finding)hypercholesterolemiaProblem (finding)Family history of hypertensionBrotherProblem (finding)depressionFatherProblem (finding) alcoholismBrotherProblem (finding)hypercholesterolemiaFatherProblem (finding) Hepatitis CFatherProblem (finding)depressionProblem (finding)Family history of psychiatric problemsFatherProblem (finding)epilepsyProblem (finding)Family history of Diabetes mellitusFatherProblem (finding)Diabetes mellitusBrother Problem (finding)Irritable bowel syndromeMotherProblem (finding)hypertension MotherProblem (finding)Alive and wellBrotherProblem (finding)hypertensionFather Problem (finding)congestive heart failureProblem (finding)Family history of strokeFatherProblem (finding)hypertensionBrotherProblem (finding)asthmaBrother Problem (finding)alcoholismFatherProblem (finding)seizure disorder Advance Directives No Advanced Directives Records [...] op sp rt wrist pain requested injection M79.7Reason for VisitOsteochondrosis of lunate of right wrist Right wrist pain Chief Complaint op sp rt wrist pain requested injection M79.7 OP SP RT SHOULDER PAIN R20.2Reason for VisitOsteochondrosis of lunate of right wrist Right wrist pain Acute pain of right shoulder Biceps tendonitis Chief Complaint op sp rt wrist pain requested injection M79.7 OP SP RT SHOULDER PAIN R20.2 e04.1Reason for VisitOsteochondrosis of lunate of right wrist Right wrist pain Acute pain of right shoulder Biceps tendonitis Chief Complaint M79.7 OP SP RT SHOULDER PAIN R20.2 e04.1 OP SP RT WRIST PAINReason for VisitAcute pain of right shoulder Biceps tendonitis Osteochondrosis of lunate of right wrist Right wrist pain Chief Complaint e04.1 OP SP RT WRIST PAIN e78.5 z00.00 r73.09 d64.9 e55.9Reason for VisitOsteochondrosis of lunate of right wrist Right wrist pain Chief Complaint e78.5 z00.00 r73.09 d64.9 e55.9 3 MONTHSReason for VisitOsteochondrosis of lunate of right wrist Right wrist pain Chief Complaint e78.5 z00.00 r73.09 d64.9 e55.9 3 MONTHS e03.9Reason for VisitOsteochondrosis of lunate of right wrist Right wrist [...] in left shoulder November 03, 2024 8:26am [employer] ASSIST[employer] LT SHOULDER PAIN NX November 03 9:12am [...] in left shoulder November 03, 2024 8:26am [employer] ASSISTANT LT SHOULDER PAIN NX November 03 9:12am d50.9 December 13, 2024 3:07 pm Chief Complaint Admit Date M25.512 - Pain in left shoulder November 03, 2024 8:26am [employer] ASSISTANT LT SHOULDER PAIN NX November 03 9:12am [...] 7:02am M25.511 - Pain in right shoulder [facility] 2024 10:38am NEW RT BICEP PAIN NX May 30 1:21pm Reason for Visit Admit Date Osteochondrosis of lunate of right wrist March 22, 2025 3:55pm Right wrist pain March 22, 2025 3:55p m Tear of right supraspinatus tendon [facility] 2024 1:21pm Chief Complaint Admit Date 6-8 WEEKS March 22, 2025 3:55p m E78.5,R73.09,D64.9,E55.9,I10 May 152024 7:02am M25.511 - Pain in right shoulder [facility] 2024 10:38am NEW RT BICEP PAIN NX May 30 1:21pm rt side rib area pain June 05 8:09pm Chief Complaint Admit Date 6-8 WEEKS March 22, 2025 3:55p m E78.5,R73.09,D64.9,E55.9,I10 May 152024 7:02am M25.511 - Pain in right shoulder [facility] 2024 10:38am NEW RT BICEP PAIN NX May 30 1:21pm rt side rib area pain June 05 8:09pm E04.1 June 13, 2025 2:50pm Chief Complaint Admit Date 6-8 WEEKS March 22, 2025 3:55p m E78.5,R73.09,D64.9,E55.9,I10 May 152024 7:02am M25.511 - Pain in right shoulder [facility] 2024 10:38am NEW RT BICEP PAIN NX May 30 1:21pm rt side rib area pain June 05 8:09pm E04.1 June 13, 2025 2:50pm R07.89 June 19, 2025 3: 46pm Chief Complaint Admit Date E78.5,R73.09,D64.9,E55.9,I10 May 152024 7:02am M25.511 - Pain in right shoulder [facility] 2024 10:38am NEW RT BICEP PAIN NX May 30 1:21pm rt side rib area pain June 05 8:09pm E04.1 June 13, 2025 2:50pm R07.89 June 19, 2025 3: 46pm E28.39 June 26, 2025 1 :55pm Reason for Visit Admit Date Tear of right supraspinatus tendon [facility] 2024 1:21pm Chief Complaint Admit Date E78.5,R73.09,D64.9,E55.9,I10 May 152024 7:02am M25.511 - Pain in right shoulder [facility] 2024 10:38am NEW RT BICEP PAIN NX May 30 1:21pm rt side rib area pain June 05 8:09pm E04.1 June 13, 2025 2:50pm R07.89 June 19, 2025 3: 46pm E28.39 June 26, 2025 1 :55pm M54.14 June 27, 2025 5 :15pm Additional Source Comments INFORMATION SOURCE (unrecogn ized section and content) DATE CREATED AUTHOR 03/10/2018 [facility] DATE CREATED AUTHOR AUTHOR'S ORGANIZ ATION 03/05/2021 [facility] DATE CREATED AUTHOR AUTHOR'S ORGANIZ ATION 10/13/2022 [facility] DATE CREATED AUTHOR AUTHOR'S ORGANIZ ATION 02/01/2024 [facility] DATE CREATED AUTHOR AUTHOR'S ORGANIZ ATION 05/31/2025 [facility] DATE CREATED AUTHOR AUTHOR'S ORGANIZ ATION 06/16/2025 [facility] DATE CREATED AUTHOR AUTHOR'S ORGANIZ ATION 06/24/2025 [facility] DATE CREATED AUTHOR AUTHOR'S ORGANIZ ATION 07/02/2025 [facility] DATE CREATED AUTHOR AUTHOR'S ORGANIZ ATION 07/03/2025 [facility] Source Comments (unrecognize d section and content) In the event this informatio n is protected by the Federal Confidentiality of Alcohol and Drug Abuse Patient Records regulations: The Federal rules restrict any use of the information to criminally investigate or prosecute any alcohol or drug abuse patient.[facility] HospitalIn the event this information is protected by the Federal Confidentiality of Alcohol and Drug Abuse Patient Records regulations: The Federal rules restrict any use of the information to criminally investigate or prosecute any alcohol or drug abuse patient.[facility] HospitalIn the event this information is protected by the Federal Confidentiality of Alcohol and Drug Abuse Patient Records regulations: The Federal rules restrict any use of the information to criminally investigate or prosecute any alcohol or drug abuse patient.[facility] HospitalIn the event this information is protected by the Federal Confidentiality of Alcohol and Drug Abuse Patient Records regulations: The Federal rules restrict any use of the information to criminally investigate or prosecute any alcohol or drug abuse patient.[facility] HospitalIn the event this information is protected by the Federal Confidentiality of Alcohol and Drug Abuse Patient Records regulations: The Federal rules restrict any use of the information to criminally investigate or prosecute any alcohol or drug abuse patient.[facility] HospitalIn the event this information is protected by the Federal Confidentiality of Alcohol and Drug Abuse Patient Records regulations: The Federal rules restrict any use of the information to criminally investigate or prosecute any alcohol or drug abuse patient.[facility] HospitalIn the event this information is protected by the Federal Confidentiality of Alcohol and Drug Abuse Patient Records regulations: The Federal rules restrict any use of the information to criminally investigate or prosecute any alcohol or drug abuse patient.[facility] HospitalIn the event this information is protected by the Federal Confidentiality of Alcohol and Drug Abuse Patient Records regulations: The Federal rules restrict any use of the information to criminally investigate or prosecute any alcohol or drug abuse patient.[facility] HospitalIn the event this information is protected by the Federal Confidentiality of Alcohol and Drug Abuse Patient Records regulations: The Federal rules restrict any use of the information to criminally investigate or prosecute any alcohol or drug abuse patient.[facility] HospitalIn the event this information is protected by the Federal Confidentiality of Alcohol and Drug Abuse Patient Records regulations: The Federal rules restrict any use of the information to criminally investigate or prosecute any alcohol or drug abuse patient.[facility] HospitalIn the event this information is protected by the Federal Confidentiality of Alcohol and Drug Abuse Patient Records regulations: The Federal rules restrict any use of the information to criminally investigate or prosecute any alcohol or drug abuse patient.[facility] HospitalIn the event this information is protected by the Federal Confidentiality of Alcohol and Drug Abuse Patient Records regulations: The Federal rules restrict any use of the information to criminally investigate or prosecute any alcohol or drug abuse patient.[facility] HospitalIn the event this information is protected by the Federal Confidentiality of Alcohol and Drug Abuse Patient Records regulations: The Federal rules restrict any use of the information to criminally investigate or prosecute any alcohol or drug abuse patient.[facility] HospitalIn the event this information is protected by the Federal Confidentiality of Alcohol and Drug Abuse Patient Records regulations: The Federal rules restrict any use of the information to criminally investigate or prosecute any alcohol or drug abuse patient.[facility] HospitalIn the event this information is protected by the Federal Confidentiality of Alcohol and Drug Abuse Patient Records regulations: The Federal rules restrict any use of the information to criminally investigate or prosecute any alcohol or drug abuse patient.[facility] HospitalIn the event this information is protected by the Federal Confidentiality of Alcohol and Drug Abuse Patient Records regulations: The Federal rules restrict any use of the information to criminally investigate or prosecute any alcohol or drug abuse patient.[facility] HospitalIn the event this information is protected by the Federal Confidentiality of Alcohol and Drug Abuse Patient Records regulations: The Federal rules restrict any use of the information to criminally investigate or prosecute any alcohol or drug abuse patient.[facility] HospitalIn the event this information is protected by the Federal Confidentiality of Alcohol and Drug Abuse Patient Records regulations: The Federal rules restrict any use of the information to criminally investigate or prosecute any alcohol or drug abuse patient.[facility] HospitalIn the event this information is protected by the Federal Confidentiality of Alcohol and Drug Abuse Patient Records regulations: The Federal rules restrict any use of the information to criminally investigate or prosecute any alcohol or drug abuse patient.[facility] HospitalIn the event this information is protected by the Federal Confidentiality of Alcohol and Drug Abuse Patient Records regulations: The Federal rules restrict any use of the information to criminally investigate or prosecute any alcohol or drug abuse patient.[facility] HospitalIn the event this information is protected by the Federal Confidentiality of Alcohol and Drug Abuse Patient Records regulations: The Federal rules restrict any use of the information to criminally investigate or prosecute any alcohol or drug abuse patient.[facility] HospitalIn the event this information is protected by the Federal Confidentiality of Alcohol and Drug Abuse Patient Records regulations: The Federal rules restrict any use of the information to criminally investigate or prosecute any alcohol or drug abuse patient.[facility] HospitalIn the event this information is protected by the Federal Confidentiality of Alcohol and Drug Abuse Patient Records regulations: The Federal rules restrict any use of the information to criminally investigate or prosecute any alcohol or drug abuse patient.[facility] HospitalIn the event this information is protected by the Federal Confidentiality of Alcohol and Drug Abuse Patient Records regulations: The Federal rules restrict any use of the information to criminally investigate or prosecute any alcohol or drug abuse patient.[facility] HospitalIn the event this information is protected by the Federal Confidentiality of Alcohol and Drug Abuse Patient Records regulations: The Federal rules restrict any use of the information to criminally investigate or prosecute any alcohol or drug abuse patient.[facility] HospitalIn the event this information is protected by the Federal Confidentiality of Alcohol and Drug Abuse Patient Records regulations: The Federal rules restrict any use of the information to criminally investigate or prosecute any alcohol or drug abuse patient.[facility] HospitalIn the event this information is protected by the Federal Confidentiality of Alcohol and Drug Abuse Patient Records regulations: The Federal rules restrict any use of the information to criminally investigate or prosecute any alcohol or drug abuse patient.[facility] HospitalIn the event this information is protected by the Federal Confidentiality of Alcohol and Drug Abuse Patient Records regulations: The Federal rules restrict any use of the information to criminally investigate or prosecute any alcohol or drug abuse patient.[facility] HospitalIn the event this information is protected by the Federal Confidentiality of Alcohol and Drug Abuse Patient Records regulations: The Federal rules restrict any use of the information to criminally investigate or prosecute any alcohol or drug abuse patient.[facility] HospitalIn the event this information is protected by the Federal Confidentiality of Alcohol and Drug Abuse Patient Records regulations: The Federal rules restrict any use of the information to criminally investigate or prosecute any alcohol or drug abuse patient.[facility] HospitalIn the event this information is protected by the Federal Confidentiality of Alcohol and Drug Abuse Patient Records regulations: The Federal rules restrict any use of the information to criminally investigate or prosecute any alcohol or drug abuse patient.[facility] HospitalIn the event this information is protected by the Federal Confidentiality of Alcohol and Drug Abuse Patient Records regulations: The Federal rules restrict any use of the information to criminally investigate or prosecute any alcohol or drug abuse patient.[facility] HospitalIn the event this information is protected by the Federal Confidentiality of Alcohol and Drug Abuse Patient Records regulations: The Federal rules restrict any use of the information to criminally investigate or prosecute any alcohol or drug abuse patient.[facility] HospitalIn the event this information is protected by the Federal Confidentiality of Alcohol and Drug Abuse Patient Records regulations: The Federal rules restrict any use of the information to criminally investigate or prosecute any alcohol or drug abuse patient.[facility] HospitalIn the event this information is protected by the Federal Confidentiality of Alcohol and Drug Abuse Patient Records regulations: The Federal rules restrict any use of the information to criminally investigate or prosecute any alcohol or drug abuse patient.[facility] HospitalIn the event this information is protected by the Federal Confidentiality of Alcohol and Drug Abuse Patient Records regulations: The Federal rules restrict any use of the information to criminally investigate or prosecute any alcohol or drug abuse patient.[facility] HospitalIn the event this information is protected by the Federal Confidentiality of Alcohol and Drug Abuse Patient Records regulations: The Federal rules restrict any use of the information to criminally investigate or prosecute any alcohol or drug abuse patient.Doctors HospitalIn the event this information is protected by the Federal Confidentiality of Alcohol and Drug Abuse Patient Records regulations: The Federal rules restrict any use of the information to criminally investigate or prosecute any alcohol or drug abuse patient.[facility] HospitalIn the event this information is protected by the Federal Confidentiality of Alcohol and Drug Abuse Patient Records regulations: The Federal rules restrict any use of the information to criminally investigate or prosecute any alcohol or drug abuse patient.[facility] HospitalIn the event this information is protected by the Federal Confidentiality of Alcohol and Drug Abuse Patient Records regulations: The Federal rules restrict any use of the information to criminally investigate or prosecute any alcohol or drug abuse patient.[facility] HospitalIn the event this information is protected by the Federal Confidentiality of Alcohol and Drug Abuse Patient Records regulations: The Federal rules restrict any use of the information to criminally investigate or prosecute any alcohol or drug abuse patient.[facility] HospitalIn the event this information is protected by the Federal Confidentiality of Alcohol and Drug Abuse Patient Records regulations: The Federal rules restrict any use of the information to criminally investigate or prosecute any alcohol or drug abuse patient.[facility] HospitalIn the event this information is protected by the Federal Confidentiality of Alcohol and Drug Abuse Patient Records regulations: The Federal rules restrict any use of the information to criminally investigate or prosecute any alcohol or drug abuse patient.[facility] HospitalIn the event this information is protected by the Federal Confidentiality of Alcohol and Drug Abuse Patient Records regulations: The Federal rules restrict any use of the information to criminally investigate or prosecute any alcohol or drug abuse patient.[facility] HospitalIn the event this information is protected by the Federal Confidentiality of Alcohol and Drug Abuse Patient Records regulations: The Federal rules restrict any use of the information to criminally investigate or prosecute any alcohol or drug abuse patient.[facility] HospitalIn the event this information is protected by the Federal Confidentiality of Alcohol and Drug Abuse Patient Records regulations: The Federal rules restrict any use of the information to criminally investigate or prosecute any alcohol or drug abuse patient.[facility] HospitalIn the event this information is protected by the Federal Confidentiality of Alcohol and Drug Abuse Patient Records regulations: The Federal rules restrict any use of the information to criminally investigate or prosecute any alcohol or drug abuse patient.[facility] HospitalIn the event this information is protected by the Federal Confidentiality of Alcohol and Drug Abuse Patient Records regulations: The Federal rules restrict any use of the information to criminally investigate or prosecute any alcohol or drug abuse patient.[facility] HospitalIn the event this information is protected by the Federal Confidentiality of Alcohol and Drug Abuse Patient Records regulations: The Federal rules restrict any use of the information to criminally investigate or prosecute any alcohol or drug abuse patient.[facility] HospitalIn the event this information is protected by the Federal Confidentiality of Alcohol and Drug Abuse Patient Records regulations: The Federal rules restrict any use of the information to criminally investigate or prosecute any alcohol or drug abuse patient.[facility] HospitalIn the event this information is protected by the Federal Confidentiality of Alcohol and Drug Abuse Patient Records regulations: The Federal rules restrict any use of the information to criminally investigate or prosecute any alcohol or drug abuse patient.[facility] HospitalIn the event this information is protected by the Federal Confidentiality of Alcohol and Drug Abuse Patient Records regulations: The Federal rules restrict any use of the information to criminally investigate or prosecute any alcohol or drug abuse patient.[facility] HospitalIn the event this information is protected by the Federal Confidentiality of Alcohol and Drug Abuse Patient Records regulations: The Federal rules restrict any use of the information to criminally investigate or prosecute any alcohol or drug abuse patient.[facility] HospitalIn the event this information is protected by the Federal Confidentiality of Alcohol and Drug Abuse Patient Records regulations: The Federal rules restrict any use of the information to criminally investigate or prosecute any alcohol or drug abuse patient.[facility] HospitalIn the event this information is protected by the Federal Confidentiality of Alcohol and Drug Abuse Patient Records regulations: The Federal rules restrict any use of the information to criminally investigate or prosecute any alcohol or drug abuse patient.[facility] HospitalIn the event this information is protected by the Federal Confidentiality of Alcohol and Drug Abuse Patient Records regulations: The Federal rules restrict any use of the information to criminally investigate or prosecute any alcohol or drug abuse patient.[facility] HospitalIn the event this information is protected by the Federal Confidentiality of Alcohol and Drug Abuse Patient Records regulations: The Federal rules restrict any use of the information to criminally investigate or prosecute any alcohol or drug abuse patient.[facility] HospitalIn the event this information is protected by the Federal Confidentiality of Alcohol and Drug Abuse Patient Records regulations: The Federal rules restrict any use of the information to criminally investigate or prosecute any alcohol or drug abuse patient.[facility] HospitalIn the event this information is protected by the Federal Confidentiality of Alcohol and Drug Abuse Patient Records regulations: The Federal rules restrict any use of the information to criminally investigate or prosecute any alcohol or drug abuse patient.[facility] HospitalIn the event this information is protected by the Federal Confidentiality of Alcohol and Drug Abuse Patient Records regulations: The Federal rules restrict any use of the information to criminally investigate or prosecute any alcohol or drug abuse patient.[facility] HospitalIn the event this information is protected by the Federal Confidentiality of Alcohol and Drug Abuse Patient Records regulations: The Federal rules restrict any use of the information to criminally investigate or prosecute any alcohol or drug abuse patient.[facility] HospitalIn the event this information is protected by the Federal Confidentiality of Alcohol and Drug Abuse Patient Records regulations: The Federal rules restrict any use of the information to criminally investigate or prosecute any alcohol or drug abuse patient.[facility] HospitalIn the event this information is protected by the Federal Confidentiality of Alcohol and Drug Abuse Patient Records regulations: The Federal rules restrict any use of the information to criminally investigate or prosecute any alcohol or drug abuse patient.[facility] HospitalIn the event this information is protected by the Federal Confidentiality of Alcohol and Drug Abuse Patient Records regulations: The Federal rules restrict any use of the information to criminally investigate or prosecute any alcohol or drug abuse patient.[facility] HospitalIn the event this information is protected by the Federal Confidentiality of Alcohol and Drug Abuse Patient Records regulations: The Federal rules restrict any use of the information to criminally investigate or prosecute any alcohol or drug abuse patient.[facility] HospitalIn the event this information is protected by the Federal Confidentiality of Alcohol and Drug Abuse Patient Records regulations: The Federal rules restrict any use of the information to criminally investigate or prosecute any alcohol or drug abuse patient.[facility] HospitalIn the event this information is protected by the Federal Confidentiality of Alcohol and Drug Abuse Patient Records regulations: The Federal rules restrict any use of the information to criminally investigate or prosecute any alcohol or drug abuse patient.[facility] Reason for Visit (unrecogniz ed section and content) ReasonCommentsNew PatientReasonCommentsFollow UpReasonCommentsOrdersPlaquenil ReasonCommentsRefill RequestReasonOnset DateCommentsRefill Gruzrux4303/07/2023 ReasonOnset DateCommentsRefill Tstjhwq3604/13/2023ReasonCommentsTRIAGEReason CommentsHeadacheSpecialtyDiagnoses / ProceduresReferred By ContactReferred To Contact Diagnoses Brain mass Procedures CONSULT TO HEADACHE CLINIC OFFICE/OUTPATIENT [facility] 60-74 MINUTES Laron Lou DO, PhD [address] [place] [address] Referral IDStatusReasonStart DateExpiration DateVisits RequestedVisits [id number] PCP Requested Referral 9/18/807025CdhatwKcchylfpSaingsf UpdateDiscuss Surgery March4Reason CommentsConsultReasonCommentsCare Coordinationfollow upReasonOnset DateComments Refill Wjsfwkg47/27/2024ReasonOnset DateCommentsRefill Fpomqyb64/29/2024Reason CommentsLab Orders/FAXReasonCommentsSchedule SurgeryReasonCommentsSchedule SurgerySurgery PlanningReasonOnset DateCommentsRefill Jbbdvpe8701/27/2024Specialty Diagnoses / ProceduresReferred By ContactReferred To ContactCT IMAGING Diagnoses 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) Procedures CT BRAIN STEREOLOCAL WO IVCON CT GUIDANCE STEREOTACTIC LOCALIZATION Erik Pineda MD [address] [place] [address] [facility] [place] [address] Referral IDStatusReasonStart DateExpiration DateVisits RequestedVisits [id number] Auto-Generated Referral [id number] / ProceduresReferred By ContactReferred To ContactMR IMAGING Diagnoses Benign neoplasm of meninges (HCC) Procedures MRI SKULL BASE WO/W IVCON MRI BRAIN BRAIN STEM W/O W/CONTRAST MATERIAL Erik Pineda MD [address] [place] [address] [facility] [place] [address] Referral IDStatusReasonStart DateExpiration DateVisits RequestedVisits [id number] Auto-Generated Referral [id number]ySfjvcfOrwnbjrlZxgsubffwwz PatientPre op consentReasonCommentsDaily HeadacheReasonCommentsepidural steroid injection ReasonCommentsInsurance AuthorizationRobaxin PA - Medicare / [employer]. ReasonOnset DateCommentsRefill Hzmyghn09/11/2024ReasonCommentsJoint PainReason CommentsResultsReasonOnset DateCommentsRefill Zgqsbrj82/15/2024ReasonComments ResultsLab results from [facility]asonCommentsCare Coordinator - OtherLab order problemReasonOnset DateCommentsRefill Request 10/10/2024ReasonCommentsCare CoordinationMyChart Follow up - Surgery Planning ReasonCommentsMed Change RequestReasonCommentsEstablished PatientReasonComments PreOp CallReasonCommentsSurgical FollowupReasonCommentsPatient UpdateReason CommentsAnesthesia ConsultSpecialtyDiagnoses / ProceduresReferred By Contact Referred To Contact Diagnoses Intracranial meningioma (HCC) Preop testing Procedures REFER TO [facility] - PREOPERATIVE OPTIMIZATION OFFICE/OUTPATIENT [facility] 60 MINUTES Erik Pineda MD [address] [place] [address] Phone: tel: fax: Referral IDStatusReasonStart DateExpiration DateVisits RequestedVisits [id number] PCP Requested Referral [id number] PatientReasonCommentsPost OpReason Onset DateCommentsRefill Ztpldrl7703/15/2025ReasonOnset DateCommentsRefill Request 03/20/2025ReasonCommentsHeadache Care Teams (unrecognized sec tion and content) Team Status: Active Member Role Status David Gonzalez MD Primary Care Provider Active Team Status: Inactive Member Role Status David Gonzalez MD Primary Care Provider Active Sanchez Gibson ProviderActive Team Status: Inactive Member Role Status David Gonzalez MD Primary Care Provider, Attending Pr luis Active Team MemberRelationshipSpecialtyStart DateEnd Jesus Gonzalez MD [address] [place] [address] ReferringFaColorado Mental Health [facility]01/14/21 Team Status: Inactive Member Role Status David Gonzalez MD Primary Care Provider Active Sanchez Clarke ProviderActive Team Status: Inactive Member Role Status David Gonzalez MD Primary Care Provider Active Gunner Cummings DPM MSAttending ProviderActiveTeam MemberRelationship SpecialtyStart DateEnd Date Jesus Gonzalez MD [address] [place] [address] ReferringFamily Medicine01/14/21Team MemberRelationshipSpecialtyStart DateEnd Date Jesus Gonzalez MD [address] [place] [address] ReferringFamily Medicine01/14/21Team MemberRelationshipSpecialtyStart DateEnd Date Jesus Gonzalez MD ReferringFamily Medicine01/14/21Team MemberRelationshipSpecialtyStart DateEnd Date Jesus Gonzalez MD ReferringFamily Medicine01/14/21Team MemberRelationshipSpecialtyStart DateEnd Date Jesus Gonzalez MD ReferringFamily Medicine01/14/21Team MemberRelationshipSpecialtyStart DateEnd Date Jesus Gonzalez MD ReferringFamily Medicine01/14/21Team MemberRelationshipSpecialtyStart DateEnd Date Jesus Gonzalez MD ReferringFamily Medicine01/14/21 Team Status: Inactive Member Role Status Jesus Gonzalez MD Primary Care Provider Active Zulema Mckinney ([facility]) , APRNAttending ProviderActiveTeam MemberRelationship SpecialtyStart DateEnd Jesus Gonzalez MD [address] [place] [address] PCP - GeneralFamily Medicine05/12/23 Jesus Gonzalez MD ReferringFamily Medicine01/14/21 Jesus Gonzalez MD [address] [facility] [place] [place] [address] ReferringFamily Medicine05/12/23Team MemberRelationshipSpecialtyStart DateEnd Jesus Gonzalez MD [address] [facility] [place] [address] PCP - GeneralFamily Medicine05/12/23 Jesus Gonzalez MD ReferringFamily Medicine01/14/21 Jesus Gonzalez MD [address] [facility] [place] [address] ReferringFami Medicine05/12/23Team MemberRelationshipSpecialtyStart End Jesus Gonzalez MD [address] [facility] [place] [address] PCP - GeneralFamily Medicine05/12/23 Jesus Gonzalez MD ReferringFamily Medicine01/14/21 Jesus Gonzalez MD [address] [facility] [place] [place] [address] ReferringFami Medicine05/12/23Team MemberRelationshipSpecialtyStart End Jesus Gonzalez MD [address] [facility] [place] [place] [address] PCP - GeneralFamily Medicine05/12/23 Jesus Gonzalez MD ReferringFamily Medicine01/14/21 Jesus Gonzalez MD [address] [facility] [place] [place] [address] ReferringFamily Medicine05/12/23Team MemberRelationshipSpecialtyStart DateEnd Date Jesus Gonzalez MD [address] [facility] [place] [place] [address] PCP - GeneralFamily Medicine05/12/23 Jesus Gonzalez MD ReferringFamily Medicine01/14/21 Jesus Gonzalez MD [address] [facility] [place] [place] [address] ReferringFamily Medicine05/12/23Team MemberRelationshipSpecialtyStart DateEnd Jesus Gonzalez MD [address] [facility]], [place] [address] PCP - GeneralFamily Medicine05/12/23 Jesus Gonzalez MD ReferringFamily Medicine01/14/21 Jesus Gonzalez MD [address] [facility]], [place] [address] ReferringFamily Medicine05/12/23Team MemberRelationshipSpecialtyStart DateEnd Date Jesus Gonzalez MD [address] [facility]], [place] [address] PCP - GeneralFamily Medicine05/12/23 Jesus Gonzalez MD ReferringFamily Medicine01/14/21 Jesus Gonzalez MD [address] [place] [address] ReferringFami Medicine05/12/23Team MemberRelationshipSpecialtyStart DateEnd Date Jesus Gonzalez MD [address] [facility]], [place] [address] PCP - Generalmily Medicine05/12/23 Jesus Gonzalez MD Referringmi Medicine01/14/21 Jesus Gonzalez MD [address] [place] [address] [facility]erring[facility]05/12/23Team MemberRelationshipSpecialtyStart End Jesus Gonzalez MD [address] [facility]], [place] [address] PCP - Generalmily Medicine05/12/23 Jesus Gonzalez MD Referringmi Medicine01/14/21 Jesus Gonzalez MD [address] [facility]], [place] [address] ReferringAt[facility]05/12/23 Team Status: Inactive Member Role Status David Gonzalez MD Primary Care Provide r, Attending Provider Active Start: November 11, 2023 End: November 11, 2023 Team Status: Inactive Member Role Status David Gonzalez MD Primary Care Provider Active Start: November 25, 2023 End: November 24abeba Lc Gomes Sanchez ProviderActiveStart: November 25, 2023 End: November 25, 2023 Team Status: Inactive Member Role Status Dates Jesus Gonzalez MD Primary Care Provider Active Start: January 08, 2024 End: January 08, 2024SuSanchez Davila ProviderActiveStart: January 08, 2024 End: January 08, 2024Team MemberRelationshipSpecialtyStart DateEnd Date Jesus Gonzalez MD [address] [place] [address] [facility]/12/23 Jesus Gonzalez MD ReferringS[facility] Medicine01/14/21 Jesus Gonzalez MD [address] [place] [address] ReferringAt[facility]05/12/23Team MemberRelationshipSpecialtyStart End Date Jesus Gonzalez MD [address] [facility]], [place] [address] PCP - Generalmily Medicine05/12/23 Jesus Gonzalez MD Referringmi Medicine01/14/21 Jesus Gonzalez MD [address] [facility]], [place] [address] ReferringAt[facility]05/12/23Team MemberRelationshipSpecialtyStart DateEnd Date Jesus Gonzalez MD [address] [place] [address] [facility] - [facility] Medicine05/12/23 Jesus Gonzalez MD ReferringFami Medicine01/14/21 Jesus Gonzalez MD [address] [place] [address] ReferringAt[facility]05/12/23 Team Status: Inactive Member Role Status Dates Jesus Gonzalez MD Primary Care Provider Active Start: January 26, 2024 End: January 26, 2024Beti Bowles NP-Mona ProviderActiveStart: January 26, 2024 End: January 26, 2024 Team Status: Inactive Member Role Status Dates Jesus Gonzalez MD Primary Care Provide r, Attending Provider Active Start: February 09, 2024 End: February 09, 2024 Team Status: Inactive Member Role Status Dates Jesus Gonzalez MD Primary Care Provide r, Attending Provider Active Start: February 15, 2024 End: February 15, 2024 Team Status: Inactive Member Role Status Dates Jesus Gonzalez MD Primary Care Provider Active Start: March 04, 2024 End: March 04Sanchez Horn ProviderActiveStart: March 04, 2024 End: March 04, 2024Team MemberRelationshipSpecialtyStart DateEnd Jesus Gonzalez MD [address] [place] [address] PCP - [facility] Medicine05/12/23 Jesus Gonzalez MD ReferringAt[facility]01/14/21 Jesus Gonzalez MD [address] [place] [address] ReferringFaCandler County Hospital05/12/23Team MemberRelationshipSpecialtyStart DateEnd Jesus Gonzalez MD [address] [facility]], [place] [address] PCP - [facility]05/12/23 Jesus Gonzalez MD ReferringAt[facility]01/14/21 Jesus Gonzalez MD [address] [facility]], [place] [address] [facility]05/12/23Team MemberRelationshipSpecialtyStart End Jesus Gonzalez MD [address] [facility]], [place] [address] PCP - [facility]05/12/23 Jesus Gonzalez MD [facility]01/14/21 Jesus Gonzalez MD [address] [facility] [place] [address] [facility]05/12/23 Team Status: Inactive Member Role Status Dates Jesus Gonzalez MD Primary Care Provide r, Attending Provider Active Start: May 12, 2024 End: May 12, 2024Team MemberRelationshipSpecialtyStart DateEnd Jesus Gonzalez MD [address] [facility]], [place] [address] PCP - [facility]05/12/23 Jesus Gonzalez MD Referring[facility]01/14/21 Jesus Gonzalez MD [address] [facility]], [place] [address] Referring[facility]05/12/23Team MemberRelationshipSpecialtyStart DateEnd Date Jesus Gonzalez MD [address] [facility]], [place] [address] PCP - [facility]05/12/23 Jesus Gonzalez MD ReferringAt[facility]01/14/21 Jesus Gonzalez MD [address] [facility]], [place] [address] ReferringAt[facility]05/12/23 Team Status: Inactive Member Role Status Dates Jesus Gonzalez MD Primary Care Provider Active Start: June 21, 2024 End: June 21Sanchez Horn ProviderActiveStart: June 21, 2024 End: June 21, 2024 Team Status: Inactive Member Role Status David Gonzalez MD Primary Care Provide r, Attending Provider Active Start: June 22, 2024 End: June 22, 2024Team MemberRelationshipSpecialtyStart DateEnd Date Jesus Gonzalez MD [address] [place] [address] PCP - [facility]03/12/23Team MemberRelationshipSpecialtyStart DateEnd Date Jesus Gonzalez MD [address] [place] [address] PCP - [facility]05/12/23 Jesus Gonzalez MD ReferringFamily Medicine01/14/21 Jesus Gonzalez MD [address] [place] [address] ReferringFaCandler [facility]05/12/23 Team Status: Inactive Member Role Status Dates Jesus Gonzalez MD Primary Care Provider Active Start: September 16, 2024 End: September 16, 2024Referral SelfAttending ProviderActiveStart: September 16, 2024 End: September 16, 2024 Team Status: Inactive Member Role Status Dates Jesus Gonzalez MD Primary Care Provider Active Start: September 20, 2024 End: September 20, 2024Susamarie Wood MDAttending ProviderActiveStart: September 20, 2024 End: September 20, 2024 Team Status: Inactive Member Role Status Dates Jesus Gonzalez MD Primary Care Provider Active Start: September 27, 2024 End: September 27abeba Gomes MDAttending ProviderActiveStart: September 27, 2024 End: September 27, 2024Team MemberRelationshipSpecialtyStart DateEnd Date Jesus Gonzalez MD [address] [place] [id number] PCP - GeneralFamily Medicine05/12/23 Jesus Gonzalez MD [facility]erringS[facility] Medicine01/14/21 Jesus Gonzalez MD [address] [place] [address] ReferringAt[facility]05/12/23Team MemberRelationshipSpecialtyStart DateEnd Date Jesus Gonzalez MD [address] [place] [address] PCP - GeneralFamily Medicine05/12/23 Jesus Gonzalez MD [facility]01/14/21 Jesus Gonzalez MD [address] [place] [id number] [facility]05/12/23 Team Status: Active Member Role Status Dates Alessia Broderick MD Attending Provider Active Star t: November 03, 2024 Wei Booker Care ProviderActiveStart: November 03, 2024 Team Status: Inactive Member Role Status Dates Jesus Gonzalez MD Primary Care Provider Active Start: November 03, 2024 End: November 03, 2024ThSanchez Farmer ProviderActiveStart: November 03, 2024 End: November 03, 2024 Team Status: Inactive Member Role Status Dates Alessia Broderick MD Attending Provider Active Star t: November 03, 2024 End: November 03, 2024DoWei Reyes Care ProviderActiveStart: November 03, 2024 End: November 03, 2024Team MemberRelationshipSpecialtyStart DateEnd Date Jesus Gonzalez MD [address] [place] [id number] PCP - [facility]05/12/23 Jesus Gonzalez MD [facility]01/14/21 Jesus Gonzalez MD [address] [place] [address] [facility]05/12/23 Team Status: Inactive Member Role Status Dates Jesus Gonzalez MD Primary Care Provide r, Attending Provider Active Start: December 13, 2024 End: December 13, 2024 Team Status: Inactive Member Role Status Dates Jesus Gonzalez MD Primary Care Provider Active Start: December 27, 2024 End: December 27Sanchez Horn ProviderActiveStart: December 27, 2024 End: December 27, 2024 Team Status: Active Member Role Status Dates Jesus Gonzalez MD Primary Care Provider Active Start: December 27, 2024 Sanchez Clarke ProviderActiveStart: December 27, 2024 Team MemberRelationshipSpecialtyStart DateEnd Date Jesus Gonzalez MD [address] [facility]], [place] [address] PCP - [facility]05/12/23 Jesus Gonzalez MD [facility]01/14/21 Jesus Gonzalez MD [address] [place] [address] [facility]05/12/23 Team Status: Inactive Member Role Status Dates Jesus Gonzalez MD Primary Care Provider Active Start: February 01, 2025 End: February 01Sanchez Horn ProviderActiveStart: February 01, 2025 End: February 01, 2025 Team Status: Inactive Member Role Status Dates Jesus Gonzalez MD Primary Care Provide r, Attending Provider Active Start: February 10, 2025 End: February 10, 2025Team MemberRelationshipSpecialtyStart DateEnd Date Jesus Gonzalez MD [address] [facility]], [place] [address] PCP - [facility]05/12/23 Jesus Gonzalez MD [facility]01/14/21 Jesus Gonzalez MD [address] [place] [address] ReferringFamily Medicine05/12/23Team MemberRelationshipSpecialtyStart DateEnd Date Jesus Gonzalez MD [address] [facility]], [place] [address] PCP - GeneralFamily Medicine05/12/23 Jesus Gonzalez MD ReferringFamily Medicine01/14/21 Jesus Gonzalez MD [address] [facility]], [place] [address] [facility]05/12/23Team MemberRelationshipSpecialtyStart DateEnd Jesus Gonzalez MD [address] [facility]], [place] [address] PCP - Generalmi Medicine05/12/23 Jesus Gonzalez MD ReferringFamily Medicine01/14/21 Jesus Gonzalez MD [address] [facility]], [place] [address] ReferringFami Medicine05/12/23Team MemberRelationshipSpecialtyStart DateEnd Date Jesus Gonzalez MD [address] [facility]], [place] [address] PCP - Generalmily Medicine05/12/23 Jesus Gonzalez MD ReferringFamily Medicine01/14/21 Jesus Gonzalez MD [address] [place] [place] [address] ReferringFamily Medicine05/12/23Team MemberRelationshipSpecialtyStart DateEnd Jesus Gonzalez MD [address] [place] [address] PCP - GeneralFamily Medicine05/12/23 Jesus Gonzalez MD ReferringFamily Medicine01/14/21 Jesus Gonzalez MD [address] [place] [address] ReferringFamily Medicine05/12/23Team MemberRelationshipSpecialtyStart DateEnd [facility] Jesus Gonzalez MD [address] [place] [address] PCP - GeneralFamily Medicine05/12/23 Jesus Gonzalez MD ReferringFamily Medicine01/14/21 Jesus Gonzalez MD [address] [place] [address] ReferringFamily Medicine05/12/23Team MemberRelationshipSpecialtyStart End Date Jesus Gonzalez MD [address] [place] [address] PCP - GeneralFamily Medicine05/12/23 Jesus Gonzalez MD ReferringFamily Medicine01/14/21 Jesus Gonzalez MD [address] [facility]], [place] [address] ReferringFamily Medicine05/12/23Team MemberRelationshipSpecialtyStart DateEnd Date Jesus Gonzalez MD [address] [facility]], [place] [address] PCP - GeneralFamily Medicine05/12/23 Jesus Gonzalez MD ReferringFamily Medicine01/14/21 Jesus Gonzalez MD [address] [facility]], [place] [address] ReferringFami Medicine05/12/23Team MemberRelationshipSpecialtyStart DateEnd Date Jesus Gonzalez MD [address] [facility]], [place] [address] PCP - Generalmily Medicine05/12/23 Jesus Gonzalez MD ReferringFamily Medicine01/14/21 Jesus Gonzalez MD [address] [facility]], [place] [address] ReferringFami Medicine05/12/23Team MemberRelationshipSpecialtyStart DateEnd Date Jesus Gonzalez MD [address] [facility]], [place] [address] PCP - GeneralFamily Medicine05/12/23 Jesus Gonzalez MD ReferringFamily Medicine01/14/21 Jesus Gonzalez MD [address] [facility]], [place] [address] ReferringFamily Medicine05/12/23Team MemberRelationshipSpecialtyStart DateEnd Date Jesus Gonzalez MD [address] [facility]], [place] [address] PCP - GeneralFamily Medicine05/12/23 Jesus Gonzalez MD [facility]01/14/21 Jesus Gonzalez MD [address] [facility]], [place] [address] ReferringF[facility]05/12/23Team MemberRelationshipSpecialtyStart DateEnd Date Jesus Gonzalez MD [address] [facility]], [place] [address] [facility] - [facility]23 Jesus Gonzalez MD ReferringFamily Medicine01/14/21 Jesus Gonzalez MD [address] [facility]], [place] [address] ReferringFami Medicine05/12/23Team MemberRelationshipSpecialtyStart DateEnd Date Jesus Gonzalez MD [address] [facility]], [place] [address] PCP - GeneralFamily Medicine05/12/23 Jesus Gonzalez MD ReferringFamily Medicine01/14/21 Jesus Gonzalez MD [address] [place] [address] ReferringFami Medicine05/12/23 Team Status: Inactive Member Role Status Dates Jesus Gonzalez MD Primary Care Provider Active Start: February 10, 2025 End: February 10, 2025DoSanchez Reyes ProviderActiveStart: February 10, 2025 End: February 10, 2025 Team Status: Inactive Member Role Status Dates Jesus Gonzalez MD Primary Care Provider Active Start: March 22, 2025 End: March 22ollSanchez Moreau ProviderActiveStart: March 22, 2025 End: March 22, 2025Team MemberRelationshipSpecialtyStart DateEnd Date Jesus Gonzalez MD [address] [place], [place] [id number] [facility] - [facility]/12/23 Jesus Gonzalez MD ReferringFami Medicine01/14/21 Jesus Gonzalez MD [address] [place] [address] [facility]05[facility]23 Name Effective Dates (start - stop) Status Members No Information Team MemberRelationshipSpecialtyStart DateEnd Date Jesus Gonzalez MD [address] [place] [address] PCP - Generalmi Medicine05/12/23 Jesus Gonzalez MD ReferringFamily Medicine01/14/21 Jesus Gonzalez MD [address] [place] [address] [facility]05/12/23Team MemberRelationshipSpecialtyStart DateEnd Date Jesus Gonzalez MD [address] [facility]], [place] [address] PCP - [facility]05/12/23 Jesus Gonzalez MD [facility]01/14/21 Jesus Gonzalez MD [address] [facility]], [place] [address] [facility]05/12/23Team MemberRelationshipSpecialtyStart DateEnd Jesus Gonzalez MD [address] [place] [address] PCP - [facility]05/12/23 Jesus Gonzalez MD [facility]erring[facility]01/14/21 Jesus Gonzalez MD [address] [place] [address] [facility]05/12/23 Team Status: Inactive Member Role Status Dates Jesus Gonzalez MD Primary Care Provider Active Start: May 26, 2025 End: May 26, 2025Jesus Gonzalez MDAttending ProviderActiveStart: May 26, 2025 End: May 26, 2025Team MemberRelationshipSpecialtyStart DateEnd Date Jesus Gonzalez MD PCP - [facility]03/12/23 Team Status: Active Member Role Status David Gonzalez MD Primary Care Provider Active Start: May 30, 2025 Renee Meier ProviderActiveStart: May 30, 2025 Team Status: Inactive Member Role Status David Gonzalez MD Primary Care Provider Active Start: May 30, 2025 End: May 30, 2025Renee Meier ProviderActiveStart: May 30, 2025 End: May 30, 2025 Team Status: Inactive Member Role Status David Gonzalez MD Primary Care Provider Active Start: June 05, 2025 End: June 05Alicia Renee ProviderActiveStart: June 05, 2025 End: June 05, 2025Team MemberRelationshipSpecialtyStart DateEnd Date Jesus Gonzalez MD PCP - [facility]03/12/23Team MemberRelationshipSpecialtyStart DateEnd Date Jesus Gonzalez MD [facility] - [facility]03/12/23 Team Status: Inactive Member Role Status David Gonzalez MD Primary Care Provider Active Start: June 13, 2025 End: June 13, 2025Sanchez Booker ProviderActiveStart: June 13, 2025 End: June 13, 2025 Team Status: Inactive Member Role Status David Gonzalez MD Primary Care Provider Active Start: June 19, 2025 End: June 19, 2025Sanchez Booker ProviderActiveStart: June 19, 2025 End: June 19, 2025 Team Status: Inactive Member Role Status David Gonzalez MD Primary Care Provider Active Start: June 26, 2025 End: June 26, 2025Sanchez Booker ProviderActiveStart: June 26, 2025 End: June 26, 2025 Team Status: Inactive Member Role Status Dates Jesus Gonzalez MD Primary Care Provider Active Start: June 27, 2025 End: June 27rick Oacmpo NP-CAttending ProviderActiveStart: June 27, 2025 End: June 27, 2025 Goals (unrecognized section and content) Goals may [...] BE BASED ON THE PRIMARY CLINICAL RECORDS. [facility]. provides no warranty or guarantee of the accuracy or completeness of information in this document.
--- NOTE | 2025-07-06 13:32 | PM.CN ---
Consult Note: HPI Data of Consult Patient: known to practice within the last 3 years Requesting Physician: Chantal Ocampo NP Primary Care Provider: Jesus Camacho MD Consult Narrative Reason for consult: neck and upper back pain Narrative: Kourtney Novak a pleasant 49 year old female presents for evaluation and management of chronic neck and thoracic pain unresponsive to > 6 weeks of PT/HEP, heat, ice, tylenol, NSAIDs. pain 3/10 neck and upper back. reports increased pain with lying down, position changes, bending, activity. utilizing robaxin 500-1000mg tid prn pain/spasms with benefit and lodine through rheumatology with benefit. recently underwent thoracic MRI which did not reveal disc bulge or stenosis. cc:: CC: Chantal Ocampo NP Review of Systems ROS Musculoskeletal Reports: back pain and neck pain PFSH PFSH Medical History Kienb?ck's disease ?M92.219 - 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], unspecified hand (ICD-10) History of smoking ?Z87.891 - Personal history of nicotine dependence (ICD-10) Carpal tunnel syndrome ?G56.00 - Carpal tunnel syndrome, unspecified upper limb (ICD-10) Obesity ?E66.9 - Obesity, unspecified (ICD-10) Anemia ?D64.9 - Anemia, unspecified (ICD-10) Anxiety ?F41.9 - Anxiety disorder, unspecified (ICD-10) Acid reflux ?K21.9 - Gastro-esophageal reflux disease without esophagitis (ICD-10) Diabetes 1.5, managed as type 2 ?E13.9 - Other specified diabetes mellitus without complications (ICD-10) Hypertension ?I10 - Essential (primary) hypertension (ICD-10) High cholesterol ?E78.00 - Pure hypercholesterolemia, unspecified (ICD-10) Surgical History H/O resection of rib ?Z98.890 - Other specified postprocedural states (ICD-10) History of surgery on arm ?Z98.890 - Other specified postprocedural states (ICD-10) H/O breast biopsy ?Z98.890 - Other specified postprocedural states (ICD-10) History of carpal tunnel surgery ?Z98.890 - Other specified postprocedural states (ICD-10) History of appendectomy ?Z90.49 - Acquired absence of other specified parts of digestive tract (ICD-10) Meds Home Medications and Allergies Home Medications ?Medication ?Instructions ?Recorded ?Confirmed ?Type dapagliflozin propanediol 5 mg 5 mg PO DAILY 02/17/23 05/29/25 History tablet (Farxiga) duloxetine 30 mg capsule,delayed 30 mg PO DAILY 02/17/23 05/29/25 History release glycopyrrolate 1 mg tablet 1 mg PO Q8H PRN secretions 02/17/23 05/29/25 History ipratropium 0.5 mg-albuterol 3 mg 3 ml inhalation Q6H PRN shortness 02/17/23 05/29/25 History (2.5 mg base)/3 mL nebulization of breath soln lamotrigine 200 mg tablet 200 mg PO Q8H 02/17/23 05/29/25 History lubiprostone 24 mcg capsule 24 mcg PO BID 02/17/23 05/29/25 History metformin 500 mg tablet 1,000 mg PO BID 02/17/23 05/29/25 History ondansetron HCl 4 mg tablet 4 mg PO Q8H PRN nausea and vomiting 02/17/23 05/29/25 History pioglitazone 15 mg tablet 15 mg PO DAILY 02/17/23 05/29/25 History budesonide 1 mg/2 mL suspension 1 mg inhalation DAILY 03/08/24 05/29/25 History for nebulization (Pulmicort) dexlansoprazole 60 mg 60 mg PO DAILY 03/08/24 05/29/25 History capsule,biphase delayed release (Dexilant) etodolac 400 mg tablet (Lodine) 400 mg PO Q12H PRN pain 03/08/24 05/29/25 History methocarbamol 500 mg tablet 500 mg PO TID 07/04/24 06/07/25 History mirabegron 25 mg tablet,extended mg PO 07/04/24 History release 24 hr (Myrbetriq) Allergies Allergy/AdvReac Type Severity Reaction Status Date / Time No Known Drug Allergies Allergy Verified 05/29/25 07:08 Exam Constitutional Documenting provider has reviewed patient's vital signs: yes Common normals: no apparent distress, oriented x3, healthy appearing, alert and well nourished General appearance: cooperative HENMT Common normals: normocephalic, hearing grossly normal bilaterally and moist oral mucous membranes Head and scalp: normocephalic Eye Common normals: PERRL Pupil: PERRL Neck & C-Spine General: normal visual inspection Cervical spine: cervical ROM abnormal lateral flexion to the right decreased and lateral flexion to the left decreased, pain with cervical ROM and cervical spine tenderness Other: strength 5/5 in BUE sensation intact BUE positive facet loading Chest Common normals: inspection of chest normal Other: pt denies rash tenderness noted along right rib cage Respiratory Common normals: normal respiratory effort, no retractions and no use of accessory muscles Back & Pelvis Thoracic spine/upper back: paraspinal muscle tenderness Neuro Common normals: oriented x3 Sensorium/orientation: alert Psych Common normals: mental status grossly normal, thought process normal, cooperative, affect normal, speech normal and activity/motor behavior normal Speech: normal speech Thought process: normal thought process Results Additional Findings Additional findings: If on a controlled substance or opioids, I have checked an [place] report on this patient and there are no aberrancies noted in the prescribing history.??If on a controlled substance or opioid a drug screen was completed and reviewed within the last year, and if there has not been a drug screen completed we ordered one today to monitor higher risk, state monitored pain medication use. As part of providing excellent, safe, comprehensive care, the following was completed at our patient's visit: 1. A medication reconciliation and review to ensure accurate knowledge of current/active medications, including asking our patients to inform us about any vywh-dwy-uazrndj medications or herbal remedies/nutritional supplements/alternative remedies. 2. A review to specifically ensure our patients have had annual screening for screening for depression, screening for tobacco use, and screening for unhealthy alcohol use. For concerning screenings had a discussion with the patient, provided patient education, and recommended follow-up with primary care provider when appropriate. If patient noted with a risk of falling, they received education on strength, gait, and balance training to prevent future risk of falling. Portions of this note may have been carried over from the previous visit and updated as appropriate. Please note this office utilizes paper charting in addition to the electronic medical record. A list of current medications, vitals, and PMH is available there as the clinical staff outside of myself do not have access to [employer] charting during the clinic day operations. As part of providing quality comprehensive care the current medications, vitals, and PMH were reviewed in the paper chart. Assessment and Plan Assessment and Plan (1) Cervical spondylosis: Assessment and Plan: The patient has had over 3 months of moderate to severe neck pain with functional impairment and inadequate response to conservative care including NSAIDS (unless there are contraindication such as concurrent blood thinners), multiple oral or topical pain medications, and home exercise program/physical therapy.? Patient has completed >6 weeks of guided home exercise program and/or formal physical therapy program without relief of their symptoms.? The Oswestry Disability Index was completed, and the patient scored a 36%.? (2) Cervical stenosis of spinal canal: Assessment and Plan: 05/29/25 bilateral C6/7 TFESI >50% improvement ongoing (3) Thoracic spondylosis: Plan repeat right then left C4-5 C5-6 facet RFA under fluoroscopy, prior RFAs provided at least 50% improvement greater than 6 months in facet mediated pain pt declining ns consultation/intervention increase robaxin 500-1000mg Qid prn pain/spasms continue HEP as tolerated f/u after RFAs complete
== END 2025-07-06 13:02 | disposition home or self-care (01) ==
LOC: PM 13:02
PROVIDERS: PCP Family Medicine; Visit Provider Nurse Practitioner
DX: M47.812 Spondylosis without myelopathy or radiculopathy, cervical region (principal)
CPT/HCPCS: G0463

== ENCOUNTER 2025-07-24 06:50 | Day surgery (SDC) | payer MEDICARE, MEDICAID, SELFPAY ==
--- OUTSIDE RECORDS SUMMARY | 2024-02-19 06:10 | XMS_ITS ---
Author Organization [facility] Address [address] [place] [place] [address] Care Team Providers Care Technology Applications Teacher Name Role Phone Jesus Camacho Primary Care Provider UnavailEtienne Stevenson Unavailable [phone] Haylie Lee Unavailable [phone] Reason For Referral Reason REFERRAL TO [facility] Diagnosis 1 Neck pain (M54.2) Referral Organization [facility] Referring Provider First Name Etienne Referring Provider Last Name [facility] Referring Provider Speciality Orthopedic Surgery Referred Organization Pain clinic General Notes Marielos Giron 2023 12:50:46 PM >, Marielos Giron 03/02/2024 08:51:27 AM >FAXED TO [facility] Referral Priority Routine REASON FOR VISIT Neck/low Back Pain Problems Problem Type SNOMED Code ICD Code Onset Dates Problem Status W/U Status Risk Notes Problem 69437300 Other interverte bral disc displacement, 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) [id number] intervertebral disc degeneration, lumbosacral region (M51.37)[id number] stenosis, lumbosacral region (M48.07)XziztjgyiipvpyuOhdbgsi67030886Ibyjku stenosis, cervical region (M48.02)VyudxmdwnooomzdChxqkcy064756317Fxcqt cervical disc displacement at C5-C6 level (M50.222)QtopcwivjftffyhLqbwyco816705139Yrefp cervical disc displacement at C6-C7 level (M50.223)ActiveconfirmedProblem 42950579Pyukjnkymcpqu, cervical region (M54.12)Activeconfirmed Encounters Encounter Location Date Provider Diagnosis [facility] Office [address] [place] [address] [place] [address] 02/19/2024 [facility] Other intervertebral disc displacement, lumbosacral region M51.27 ; Other intervertebral disc degeneration, lumbosacral region M51.37 ; Spinal stenosis, lumbosacral region M48.07 ; Spinal stenosis, cervical region M48.02 ; Other cervical disc displacement at C5-C6 level M50.222 ; Other cervical disc displacement at C6-C7 level M50.223 and Radiculopathy, cervical region M54.12 Assessments Encounter Date Diagnosis (ICD Code) Assessment Notes Treatment Notes Treatment Clinical Notes Section Notes 02/19/2024 Other intervertebral disc displacement, lumbosacral region (ICD-10 - M51.27) 1. L5-S1 HNP/DDD/NFS/stenosis 2. C5-7 stenosis/HNP/radiculopathy 02/19/2024Other intervertebral disc degeneration, lumbosacral region (ICD-10 - M51.37) 1. L5-S1 HNP/DDD/NFS/stenosis 2. C5-7 stenosis/HNP/radiculopathy 02/19/2024Spinal stenosis, lumbosacral region (ICD-10 - M48.07) 1. L5-S1 HNP/DDD/NFS/stenosis 2. C5-7 stenosis/HNP/radiculopathy 02/19/2024Spinal stenosis, cervical region (ICD-10 - M48.02) 1. L5-S1 HNP/DDD/NFS/stenosis 2. C5-7 stenosis/HNP/radiculopathy 02/19/2024Other cervical disc displacement at C5-C6 level (ICD-10 - M50.222) 1. L5-S1 HNP/DDD/NFS/stenosis 2. C5-7 stenosis/HNP/radiculopathy 02/19/2024Other cervical disc displacement at C6-C7 level (ICD-10 - M50.223) 1. L5-S1 HNP/DDD/NFS/stenosis 2. C5-7 stenosis/HNP/radiculopathy 02/19/2024adiculopathy, cervical region (ICD-10 - M54.12) 1. L5-S1 HNP/DDD/NFS/stenosis 2. C5-7 stenosis/HNP/radiculopathy 02/19/2024Other Patient evaluated and plan established by Dr. Byrne. Dr. Byrne reviewed patient's cervical and lumbar MRIs with patient. We will refer her to [facility] for NAKIA of C7/T1 and L5/S1. We have also given her a prescription for physical therapy for cervical and lumbar spine. We will see her back on an as-needed basis. The patient is very much in agreement with the treatment and/or diagnostic plan set forth and all questions were answered to the patient's satisfaction. Thanks once again. If we can be of further service to your patients with disorders of the spine, cervical, thoracic, or lumbar, please do not hesitate to contact Dr. Byrne. Best regards, 1. L5-S1 HNP/DDD/NFS/stenosis 2. C5-7 stenosis/HNP/radiculopathy Plan Of Treatment Treatment Notes Assessment Notes Other Patient evaluated and plan established by Dr. Byrne. Dr. Byrne reviewed patient's cervical and lumbar MRIs with patient. We will refer her to [facility] for NAKIA of C7/T1 and L5/S1. We have also given her a prescription for physical therapy for cervical and lumbar spine. We will see her back on an as-needed basis. The patient is very much in agreement with the treatment and/or diagnostic plan set forth and all questions were answered to the patient's satisfaction. Thanks once again. If we can be of further service to your patients with disorders of the spine, cervical, thoracic, or lumbar, please do not hesitate to contact Dr. Byrne. Best regards, Pending Test Test Name Order Date Lumbar spine, 4v flex ext - 78250 2023 Cervical spine,ap,lat,flex,ext - 97236 0 02/19/2024 SFS - Lumbar Spine PT Order, Isometrics & Strenghening w/Modalities as needed, 2-3 times per week for 6 weeks 02/19/2024 SFS - Cervical Spine PT Orde r, Isometrics & Strenghening w/Modalities as needed. 2-3 x Week for 4-6 Weeks 02/19/2024 Epidural injection - lumbar 02/19/2024 Referrals Referral Date Details 02/19/2024 02/19/2024, REFERRAL TO [facility] FOR [facility] Next Appt Details Follow Up: prn, Reason: Progress Notes * DEON PICHARDO LDOB:[birth year] (49 yo F)Acc No.[id number]:02/19/2024 Patient:?DEON PICHARDO :?Haylie Seymour PADOB:1975???Age:48 Y???Sex:FemaleDate:02/19/2024hone:[phone]:[address], [facility]Ybo:Jesus Camacho Subjective: * Chief Complaints: * 1 . Neck/low Back Pain. * HPI: ???General Follow Up Information:? Dictated by Haylie Seymour PA-C Thank you for referring your patient to see Dr. Byrne in surgical spine consultation at the [facility]. 48-year-old female presents with 20+ years of neck and low back pain. She states that at this pointher neck has been more bothersome for her. She does report that she has headaches a lot. She sometimes will have tingling that refers down to her hand and her right upper extremity. She does report some intermittent balance issues as well. For her low back pain she reports that she will have left leg anterior/posterior pain that stops at the knee, and sometimes pain to her right lower extremity. She has done physical therapy and had an RFA that provided no relief for her pain. Current VAS scoreof 6 out of 10. She reports 90% back pain and 10% leg pain and 90% neck pain and 10% arm pain. Factors that aggravate her pain are standing, walking, bending forward, lying on her stomach, rising from sitting, and changing positions. Sitting provides relief of her symptoms. She has tried anti-inflammatories, narcotic pain medications physical therapy, and chiropractor visits that have offered relief. ???General Info per Patient Report:?Side affected is?Bilateral?.?Joint or body part affected is?Neck, upper back, lower back, leg.?Date of Injury:?2007.?Start of Pain/Cause of Injury?many years.?Pain occurred?not sure - except middle/upper back I pressed down a lid on a box (up higher).?Work related:?no.?Motor vehicle accident:?no.?Third green party responsibility:?no.?What activities make your symptoms worse??standing, walking, bending forward, lying on your stomach, rising from sitting, changing positions. Quality of pain is?Neck, upper, middle, lower back almost at all times?.?Which ofthe following treatments have you tried??Anti-Inflammatory medications, Narcotic pain medication, hot packs, TENS unit/Muscle stim, Back,Neck exercises, medicare interviewer?.?What activities help the pain??sitting.? * ROS: ???Musculoskeletal:?Admits?Back Pain.?Admits?Neck Pain.? * Medical History: * Family History: N o Family History documented.. * Medications: N one Objective: * Vitals: P ain Scale (NRS): 6. * Examination: ???General examination: ???On examination, the patient is well-developed, well-nourished, well-groomed, alert and oriented x3, normal mood. Limited cervical ROM. Midline cervical tenderness to palpation. 5/5 muscle strength bilateral upperextremities. Sensation intact bilateral upper extremities. Negative Geovany sign bilaterally. Positive Spurling sign on the right, negative on the left. 2+ deep tendon reflexes bilateral upper extrem ities. Limited lumbar ROM. Midline tender over the lumbar spine. 5/5 muscle strength bilateral lower extremities. Sensory intact lower extremities. Negative clonus and SLR bilaterally. 2+ deep tendon reflexes bilateral lower extremities. ???X-ray Imaging Studies: ???4 view x-rays of the lumbar spine were taken in office today and reviewed interpreted by myself as L5-S1 degenerative disc disease. 2 view x-rays of the cervical spine flex/ext were taken in the office today and reviewed interpreted by myself as lower cervical degenerative disc disease. . ???MRI Imaging Studies: ???MRI cervical spine without contrast was reviewed from [facility] from 02/09/2024; Impression:C5-6 broad-based disc bulge with facet hypertrophy and uncovertebral joint spurring right greater than left. There is severe right and moderate left neuroforaminal narrowing with moderate spinal canal stenosis. C6-C7 there is circumferential disc bulge with facet and operative joint degenerative change. There is moderate to severe bilateral neuroforaminal narrowing with moderate spinalcanal narrowing. MRI lumbar spine without contrast was reviewed from [facility] from 02/09/2024; Impression:At L5-S1 there is a circumferential disc bulge with facet hypertrophy. There is mild spinal canal stenosis with mild to moderate right and moderate to severe left neural foraminal narrowing. This is slightly worse when compared to the prior exam. No significant spinal canal or neural foraminal narrowing is noted, otherwise. . ??? Assessment: * Assessment: 1.?Other intervertebral disc displacement, lumbosacral region - M51.27 (Primary)?? 2.?Other intervertebral disc degeneration, lumbosacral region - M51.37???3. Spinal stenosis, lumbosacral region - M48.07???4.?Spinal stenosis, cervicalregion - M48.02???5.?Other cervical disc displacement at C5-C6 level - M50.222 ??6.?Other cervical disc displacement at C6-C7 level - M50.223???7.?Radiculopathy, cervical region - M54.12???1. L5-S1 HNP/DDD/NFS/stenosis 2. C5-7 stenosis/HNP/radiculopathy. Plan: * Treatment: ?LAB: SFS - Lumbar Spine PT Order, Isometrics & Strenghening w/Modalities as needed, 2-3 times per week for 6 weeks ?LAB: SFS - Cervical Spine PT Order, Isometrics & Strenghening w/Modalities as needed. 2-3 x Week for 4-6 Weeks ?LAB: Epidural injection - lumbar ?Imaging: Lumbar spine, 4v flex ext - 38911 ?Imaging: Cervical spine,ap,lat,flex,ext - 04084 Notes: Patient evaluated and plan established by Dr. Byrne. Dr. Byrne reviewed patient's cervical and lumbar MRIs with patient. We will refer her to [facility] for NAKIA of C7/T1 and L5/S1. We have also given her a prescription for physical therapy for cervical and lumbar spine.We will see her back on an as-needed basis. The patient is very much in agreement with the treatment and/or diagnostic plan set forth and all questions were answered to the patient's satisfaction. Thanks once again. If we can be of further service to your patients with disorders of the spine, cervical, thoracic, or lumbar, please do not hesitate to contact Dr. Byrne. Best regards, ? Referral To: ?Reason:[facility]ERRAL[facility] * Follow Up: p rn Forms: * Images: * Electronic signature of Haylie Lee PA-C on 07/24/2025 at 06:55 AM ESTSign off status: Pending * Provider: VIVEK Mckenzie Date: 0 02/19/2024 Generated for Printing/Faxing/eTransmitting on:?07/24/2025 06:55 AM EST History and Physical Notes * HPI (History of Present Illness) CategorySub-CategoryDetailNotesCategory NotesGeneral Follow Up Information Dictated by Haylie Seymour PA-C Thank you for referring your patient to see Dr. Byrne in surgical spine consultation at the [facility]. 48-year-old female presents with 20+ years of neck and low back pain. She states that at this pointher neck has been more bothersome for her. She does report that she has headaches a lot. She sometimes will have tingling that refers down to her hand and her right upper extremity. She does report some intermittent balance issues as well. For her low back pain she reports that she will have left leg anterior/posterior pain that stops at the knee, and sometimes pain to her right lower extremity.She has done physical therapy and had an RFA that provided no relief for her pain. Current VAS score of 6 out of 10. She reports 90% back pain and 10% leg pain and 90% neck pain and 10% arm pain. Factors that aggravate her pain are standing, walking, bending forward, lying on her stomach, rising from sitting, and changing positions. Sitting provides relief of her symptoms. She has tried anti-inflammatories, narcotic pain medications physical therapy, and chiropractor visits that have offered relief. General Info per Patient ReportSide affected isBilateralJoint or body part affected isNeck, upper back, lower back, legPain occurrednot sure - except middle/upper back I pressed down a lid on a box (up higher)Work related:noMotor vehicle accident:noQuality of pain isNeck, upper, middle, lower back almost at all timesDate of Injury:2008Start of Pain/Cause of Injurymany yearsThird green party responsibility:noWhat activities make your symptoms worse?standing, walking, bending forward, lying on your stomach, rising from sitting, changing positions Which of the following treatments have you tried?Anti-Inflammatory medications, Narcotic pain medication, hot packs, TENS unit/Muscle stim, Back,Neck exercises, chiropractic careWhat activities help the pain?sitting Examination CategorySub-CategoryDetailNotesCategory NotesGeneral examination On examination, the patient is well-developed, well-nourished, well-groomed, alert and oriented x3,normal mood. Limited cervical ROM. Midline cervical tenderness to palpation. 5/5 muscle strength bilateral upperextremities. Sensation intact bilateral upper extremities. Negative Geovany sign bilaterally. Positive Spurling sign on the right, negative on the left. 2+ deep tendon reflexes bilateral upper extrem ities. Limited lumbar ROM. Midline tender over the lumbar spine. 5/5 muscle strength bilateral lower extremities. Sensory intact lower extremities. Negative clonus and SLR bilaterally. 2+ deep tendon reflexes bilateral lower extremities. X-ray Imaging Studies 4 view x-rays of the lumbar spine were taken in office today and reviewed interpreted by myself as L5-S1 degenerative disc disease. 2 view x-rays of the cervical spine flex/ext were taken in the office today and reviewed interpreted by myself as lower cervical degenerative disc disease. MRI Imaging Studies MRI cervical spine without contrast was reviewed from [facility] from 02/09/2024; Impression:C5-6 broad-based disc bulge with facet hypertrophy and uncovertebral joint spurring right greater than left. There is severe right and moderate left neuroforaminal narrowing with moderate spinal canal stenosis. C6-C7 there is circumferential disc bulge with facet and operative joint degenerative change. There is moderate to severe bilateral neuroforaminal narrowing with moderate spinalcanal narrowing. MRI lumbar spine without contrast was reviewed from [facility] from 02/09/2024; Impression:At L5-S1 there is a circumferential disc bulge with facet hypertrophy. There is mild spinal canal stenosis with mild to moderate right and moderate to severe left neural foraminal narrowing. This is slightly worse when compared to the prior exam. No significant spinal canal or neural foraminal narrowing is noted, otherwise. Consultation Request Notes Referral Date Referring Provider Referred Provider Not es 02/19/2024 Etienne Scott , REFERRAL TO [facility]
--- OUTSIDE RECORDS SUMMARY | 2025-06-27 08:27 | XMS_ITS | Continuity of Care Document ---
Author Organization [facility] Address [address] [place] [address] Phone Care Team Providers Care Roguer Name Role Phone Jonathan Mayberry DMD Unavailable Unavailable Allergies, Adverse Reactions, Alerts Substance Reaction Status Criticality No Known Allergies Active No Inform ation Medications Medication Instructions Dosage Effective Dates (start - stop) Status Comments Depo-Provera 150 mg/mL intramuscular syringe inject 1 milliliter by intramuscular route every 3 months 150 MG - Active Farxiga 5 mg tablet [...] day at bedtime 100 MG - Active Robinul 1 mg tablet [...] route every day 500 MCG - Active lisinopril 10 mg tablet take 1 tablet by oral route every day 10 MG - No Longer Active simvastatin 20 mg tablet take 1 tablet by oral route every day in the evening 20 MG - No Longer Active Problems Condition Type Effective Dates (start - stop) Clini [facility] Status Comments No Known Problems Procedures Procedure Date Bitew[employer] Prophylaxis Adult Moderate Risk [facility] [place] Dis Jun Oral Hygiene Instruction Periodic Oral Eval Estab Patient 2024 Depo Provera 1 Ml OFFICE/OUTPATIENT VISIT, EST Depo Provera 1 Ml OFFICE/OUTPATIENT VISIT, EST OFFICE/OUTPATIENT VISIT, EST Bp scrn perf rec interval DIAST BP < 80 MM HG SYST BP < 130 MM HG MED LIST DOCD IN RD RVW MEDS BY RX/DR IN [facility] Pt inelig neg scrn depres Moderate Risk Prophylaxis Adult [employer] [facility] [place] Dis Nov Oral Hygiene Instruction Depo Provera [...] 130 MM HG MED LIST DOCD IN [facility] RVW MEDS BY RX/DR IN [facility] Pt inelig neg scrn depres Obtaining screen [...] 09-27 OFFICE/OUTPATIENT VISIT, EST DESTRUCT B9 LESION, 1-14 PREV VISIT, EST, AGE 18-39 Depo Provera [...] Diagnoses Date Provider Providers Copied on Encounter [facility], [address] [place] [address], [id number] , [place] tel:[phone] [facility] pa (chief complaint) Body mass index [BMI]40.0-44.9 , adultEncounter for screening for dental disorders 5 Jefe Castillo. [address] [place] [address], [id number], [place]. tel:[phone] OFFICE/OUTPA TIENT VISIT, EST [facility], [address] [place] [address], [id number] , [place] tel:[phone] [facility] Encounter for Depo-Provera contraception 5 [facility]. [address], [place], [id number], [place]. tel:[phone] OFFICE/OUTPA TIENT VISIT, [facility], [address], [place], [id number] , [place] tel: [phone] [facility] Encounter for Depo-Provera contraception 5 [facility]. [address], [place], [id number], [place]. tel:[phone] OFFICE/OUTPA TIENT VISIT, [facility], [address], [place], [id number] , [place] tel: [phone] [facility] contraception (chief complaint) Depo Provera injectionBody mass index [BMI]40.0-44.9 , adult Dec- 5 [facility]. [address], [place], [id number], [place]. tel:[phone] [facility], [address], [place], [id number] , [place] tel: [phone] [facility] Clinic pa (chief complaint) Body mass index [BMI]40.0-44.9 , adultEncounter for screening for dental disorders 5 Jefe Castillo. [address] [place], [place], [id number], [place]. tel:[phone] OFFICE/OUTPA TIENT VISIT, [facility], [address], [place], [id number] , [place] tel:[phone] [facility] Depo (chief complaint) Body mass index [BMI]40.0-44.9 , adultDepo Provera injection 5 [facility]. [address], [place], [id number], [place]. tel:[phone] PREV VISIT, EST, AGE 40-64 [facility], [address], [place], [id number] , [place] tel:[phone] [facility] annual exam (chief complaint)cont raception (chief complaint) Encounter for gynecological examination (general) (routine) without abnormal findingsBody mass index [BMI]40.0-44.9 , adultDepo Provera injectionEncou nter for screening mammogram for Ca of breast 4 [facility]. [address], [place], [id number], [place]. tel:[phone] [facility], [address], [place], [id number] , [place] tel: [phone] [facility] Clinic dn (chief complaint)dn (chief complaint) Encounter for screening for dental disorders 4 Jefe Castillo. [address] [place], [place], [id number], [place]. tel:[phone] OFFICE/OUTPA TIENT VISIT, [facility], [address], [place], 397[address]4508 , [place] tel: [phone] [facility] Depo (chief complaint) Depo Provera injectionBody mass index [BMI]40.0-44.9 , adult 4 [facility]. [address], [place], [address]679[address], [place]. tel:[phone] OFFICE/OUTPA TIENT VISIT, [facility], [address], [place], 047[address] , [place] tel: [phone] [facility] Depo (chief complaint) Body mass index [BMI]40.0-44.9 , adultEncounter for surveillance of injectable contraceptive 4 [facility]. [address], [place], 296388435, [place]. tel:[phone] OFFICE/OUTPA TIENT VISIT, [facility], [address], [place], 672[address]58[address] , [place] tel: [phone] [facility] Depo (chief complaint) Depo Provera injectionBody mass index [BMI]40.0-44.9 , adult Nov-2 4 [facility]. [address], [place], 745[address], [place]. tel:[phone] OFFICE/OUTPA TIENT VISIT, [facility], [address], [place], 828[address] , [place] tel:[phone] [facility] contraception (chief complaint) Body mass index [BMI] 39.0-39.9, adultEncounter for surveillance of injectable contraceptive 4 [facility]. [address], [place], [id number], [place]. tel:[phone] OFFICE/OUTPA TIENT VISIT, [facility], [address], [place], [address] , [place] tel:[phone] [facility] annual exam (chief complaint) Encounter for gynecological examination (general) (routine) without abnormal findingsEncoun ter for surveillance of injectable contraceptiveB francisca mass index [BMI] 37.0-37.9, adult 3 [facility] [address], [address], [place]. tel:[phone] OFFICE/OUTPA TIENT VISIT, [facility], [address], [place], [id number] , [place] tel:[phone] [facility] contraception (chief complaint) Encounter for screening mammogram for Ca of breastEncounte r for surveillance of injectable contraceptive 3 [facility]. [address], [place], [address]605[address], [place]. tel:[phone] OFFICE/OUTPA TIENT VISIT, [facility], [address], [place], 164791745 , [place] tel:[phone] [facility] contraception (chief complaint) Encounter for surveillance of injectable contraceptiveB francisca mass index [BMI] 39.0-39.9, adult 3 [facility] [address], [id number], [place]. tel:[phone] OFFICE/OUTPA TIENT VISIT, [facility], [address], [place], [address] , [place] tel:[phone] [facility] contraception (chief complaint) Encounter for surveillance of injectable contraceptiveB francisca mass index [BMI]40.0-44.9 , adult Oct- 3 [facility]. [address], [place], 24825[address], [place]. tel:[phone] OFFICE/OUTPA TIENT VISIT, [facility], [address] [place] [address], [id number] , [place] tel:+ [phone] [facility] contraception (chief complaint) Encounter for surveillance of injectable contraceptiveB francisca mass index [BMI]40.0-44.9 , adult 2 [facility]. [address] [place] [address], [id number], [place]. tel:[phone] OFFICE/OUTPA TIENT VISIT, [facility], [address] [place] [address], [id number] , [place] tel:[phone] [facility] annual exam (chief complaint) Encounter for gynecological examination (general) (routine) without abnormal findingsBody mass index [BMI] 38.0-38.9, adultEncounter for STD screeningOther problem related to lifestyleEncou nter for surveillance of injectable contraceptiveE ncounter for screening mammogram for Ca of breast 2 [facility]. [address] [place] [address], [id number], [place]. tel:[phone] OFFICE/OUTPA TIENT VISIT, [facility], [address] [place] [address], [id number] , [place] tel:[phone] [facility] contraception (chief complaint) Encounter for surveillance of injectable contraceptiveB francisca mass index [BMI] 37.0-37.9, adult 2 [facility]. [address], [place], [id number], [place]. tel:[phone] OFFICE/OUTPA TIENT VISIT, [facility], [address], [place], [id number] , [place] tel:[phone] [facility] contraception (chief complaint) Encounter for surveillance of injectable contraceptiveB francisca mass index [BMI] 39.0-39.9, adult 2 [facility]. [address], [place], [id number], [place]. tel:[phone] OFFICE/OUTPA TIENT VISIT, [facility], [address], [place], 704[address]337 , [place] tel:[phone] [facility] contraception (chief complaint) Body mass index [BMI] 39.0-39.9, adultEncounter for surveillance of injectable contraceptive 2 [facility]. [address], [place], [id number], [place]. tel:[phone] [facility], [address], [place], [id number] , [place] tel:[phone] [facility] No Information 1 Gera Melgoza. [address], [place], [id number], [place]. tel:[phone] OFFICE/OUTPA TIENT VISIT, [facility], [address], [place], 138[address]40 , [place] tel:[phone] [facility] contraception (chief complaint) Encounter for surveillance of injectable contraceptiveB francisca mass index [BMI]40.0-44.9 , adult 1 [facility]. [address], [place], 498789[address], [place]. tel:[phone] OFFICE/OUTPA TIENT VISIT, [facility], [address], [place], 600824854 , [place] tel:[phone] [facility] annual exam (chief complaint) Encounter for gynecological examination (general) (routine) without abnormal findingsEncoun ter for screening mammogram for cancer of breastEncounte r for surveillance of injectable contraceptiveB francisca mass index [BMI] 39.0-39.9, adult 1 [facility]. [address], [place], 499004981, [place]. tel:[phone] OFFICE/OUTPA TIENT VISIT, [facility], [address], [place], [id number] , [place] tel: [phone] [facility] contraception (chief complaint) Encounter for surveillance of injectable contraceptiveB francisca mass index [BMI] 39.0-39.9, adult 1 [facility]. [address], [place], 161827727, [place]. tel:[phone] OFFICE/OUTPA TIENT VISIT, [facility], [address], [place], 645329061 , [place] tel: [phone] [facility] contraception (chief complaint) Encounter for surveillance of injectable contraceptiveB francisca mass index [BMI]40.0-44.9 , adult 1 [facility]. [address], [place], 740587372, [place]. tel:[phone] OFFICE/OUTPA TIENT VISIT, [facility], [address], [place], 460742710 , [place] tel:[phone] [facility] contraception (chief complaint) Body mass index [BMI]40.0-44.9 , adultEncounter for surveillance of injectable contraceptive 0 [facility]. [address], [place], [id number], [place]. tel:[phone] OFFICE/OUTPA TIENT VISIT, [facility], [address], [place], [id number] , [place] tel:[phone] [facility] contraception (chief complaint) Body mass index (BMI) 40.0-44.9, adultEncounter for surveillance of injectable contraceptive May- 0 [facility]. [address], [place], [id number], [place]. 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 [address], [place], [id number], [place]. tel:[phone] [facility], [address], [place], [id number] , [place] tel: [phone] [facility] Body mass index (BMI) 39.0-39.9, adultEncounter for surveillance of injectable contraceptive Dec-0 0 [facility]. [address], [place], [id number], [place]. tel:[phone] OFFICE/OUTPA TIENT VISIT, [facility], [address], [place], [id number] , [place] tel:[phone] [facility] contraception (chief complaint) Encounter for surveillance of injectable contraceptiveB francisca mass index (BMI) 39.0-39.9, adult 0 [facility]. [address] [place] [address], [id number], [place]. tel:[phone] OFFICE/OUTPA TIENT VISIT, [facility], [address] [place] [address], [id number] , [place] tel:[phone] [facility] contraception (chief complaint) Encounter for surveillance of injectable contraceptiveB francisca mass index (BMI) 37.0-37.9, adult [facility]. [address], [place], 391593931, [place]. tel:[phone] OFFICE/OUTPA TIENT VISIT, [facility], [address], [place], 357004977 , [place] tel: [phone] [facility] contraception (chief complaint) Body mass index (BMI) 36.0-36.9, adultEncounter for surveillance of injectable contraceptive [facility]. [address], [place], [id number], [place]. tel:[phone] OFFICE/OUTPA TIENT VISIT, [facility], [address] [place] [address], [id number] , [place] tel: [phone] [facility] annual exam (chief complaint) Encntr for telephone plant power operator exam (general) (routine) w/o abn findingsBody mass index (BMI) 35.0-35.9, adultEncounter for STD screeningEncou nter for surveillance of injectable contraceptiveO ther problem related to lifestyle [facility]. [address] [place] [address], [id number], . tel:[phone] OFFICE/OUTPA TIENT VISIT, [facility], [address], [place], 955966262 , [place] tel: [phone] [facility] contraception (chief complaint) Body mass index (BMI) 34.0-34.9, adultEncounter for surveillance of injectable contraceptive [facility]. [address] [place] [address], [id number], [place]. tel:[phone] OFFICE/OUTPA TIENT VISIT, [facility], [address] [place] [address], [id number] , [place] tel: [phone] [facility] contraception (chief complaint) Encounter for surveillance of injectable contraceptiveB francisca mass index (BMI) 32.0-32.9, adult 8 [facility]. [address], [place], [id number], [place]. tel: [phone] OFFICE/OUTPA TIENT VISIT, EST [facility], [address], [place], 945371134 , [place] tel: [phone] [facility] contraception (chief complaint) Encounter for surveillance of injectable contraceptiveB francisca mass index (BMI) 30.0-30.9, adult Jun- 8 [facility]. [address], [place], 666580965, [place]. tel: [phone] [facility], [address], [place], [id number] , [place] tel: [phone] [facility] contraception (chief complaint) Encounter for surveillance of injectable contraceptiveB francisca mass index (BMI) 30.0-30.9, adult 8 [facility]. [address], [place], [id number], [place]. tel: [phone] [facility], [address], [place], [id number] , [place] tel: [phone] [facility] No Information 8 Corinai DO Brody. [address], [place], [id number], [place]. tel: [phone] OFFICE/OUTPA TIENT VISIT, EST [facility], [address], [place], 919183097 , [place] tel: [phone] [facility] contraception (chief complaint) No Information 8 [facility]. [address], [place], 403253383, [place]. 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 [address], [place], [id number], [place]. tel:[phone] OFFICE/OUTPA TIENT VISIT, [facility], [address] [place] [address], [id number] , [place] tel: [phone] [facility] contraception (chief complaint) Encounter for surveillance of injectable contraceptive 8 [facility]. [address] [place] [address], [id number], [place]. tel:[phone] OFFICE/OUTPA TIENT VISIT, [facility], [address], [place], 881419255 , [place] tel: [phone] [facility] contraception (chief complaint) Encounter for surveillance of injectable contraceptive 7 [facility]. [address], [place], 244458007, [place]. tel:[phone] OFFICE/OUTPA TIENT VISIT, [facility], [address] [place] [address], [id number] , [place] tel: [phone] [facility] contraception (chief complaint) Encounter for surveillance of injectable contraceptive 7 [facility]. [address], [place], [id number], [place]. tel:[phone] OFFICE/OUTPA TIENT VISIT, [facility], [address] [place] [address], [id number] , [place] tel: [phone] [facility] contraception (chief complaint) Encounter for surveillance of injectable contraceptive 7 [facility]. [address], [place], 804720176, [place]. tel:[phone] OFFICE/OUTPA TIENT VISIT, [facility], [address], [place], 632927843 , [place] tel: [phone] [facility] Cryo follow-up (chief complaint) Condyloma acuminatum Dec- 7 Sandy Kim. [address], [place], [id number], [place]. tel:[phone] OFFICE/OUTPA TIENT VISIT, [facility], [address], [place], 792693314 , [place] tel: [phone] [facility] cyrotherapy (chief complaint) Condyloma acuminatum Dec- 7 Sandy Kim. [address], [place], [id number], [place]. tel:[phone] PREV VISIT, EST, AGE 18-39 [facility], [address], [place], [id number] , [place] tel: [phone] [facility] annual exam (chief complaint) Encounter for surveillance of injectable contraceptive- well woman with abnormal findingEncount er for STD screeningOther problem related to lifestyleCondy amy acuminatum 7 [facility]. [address], [place], 246353729, [place]. tel:[phone] OFFICE/OUTPA TIENT VISIT, [facility], [address], [place], 394987200 , [place] tel: [phone] [facility] contraception (chief complaint) Encounter for surveillance of injectable contraceptive [facility]. [address], [place], [id number], [place]. tel:[phone] OFFICE/OUTPA TIENT VISIT, [facility], [address], [place], 129245611 , [place] tel:[phone] [facility] contraception (chief complaint) Encounter for surveillance of injectable contraceptive 2 6 [facility]. [address], [place], 766864981, [place]. tel:[phone] OFFICE/OUTPA TIENT VISIT, [facility], [address], [place], 428354859 , [place] tel: [phone] [facility] contraception (chief complaint) Encounter for surveillance of injectable contraceptive 6 [facility]. [address], [place], 611646398, [place]. tel:[phone] OFFICE/OUTPA TIENT VISIT, [facility], [address], [place], 625608455 , [place] tel: [phone] [facility] contraception (chief complaint) Encounter for surveillance of injectable contraceptive 6 [facility]. [address], [place], 091407032, [place]. tel:[phone] PREV VISIT, EST, AGE 18-39 [facility], [address], [place], [id number] , [place] tel: [phone] [facility] annual exam (chief complaint) Encounter for general telephone plant power operator exam without abnormal findingEncount er for STD screeningOther problem related to lifestyleEncou nter for surveillance of injectable contraceptive 6 [facility]. [address], [place], 284218786, [place]. tel:[phone] OFFICE/OUTPA TIENT VISIT, [facility], [address], [place], 217389395 , [place] tel:[phone] [facility] contraception (chief complaint) Encounter for surveillance of injectable contraceptive 5 [facility]. [address], [place], 005268356, [place]. tel:[phone] OFFICE/OUTPA TIENT VISIT, [facility], [address], [place], 959498667 , [place] tel: [phone] [facility] contraception (chief complaint) Other specified contraceptive management 5 [facility]. [address], [place], 614245327, [place]. tel:[phone] OFFICE/OUTPA TIENT VISIT, [facility], [address], [place], 241333200 , [place] tel: [phone] [facility] Depo/supply (chief complaint) Other specified contraceptive management 5 [facility]. [address], [place], 535483654, [place]. tel:[phone] OFFICE/OUTPA TIENT VISIT, [facility], [address], [place], 355064963 , [place] tel: [phone] [facility] No Information 5 [facility]. [address], [place], 213047308, [place]. tel:[phone] OFFICE/OUTPA TIENT VISIT, [facility], [address], [place], 588275659 , [place] tel: [phone] [facility] Other specified contraceptive management 0 5 [facility]. [address], [place], 660058714, [place]. tel:[phone] OFFICE/OUTPA TIENT VISIT, [facility], [address], [place], 663738502 , [place] tel:[phone] [facility] annual visit (chief complaint)trevon h control--Depo (chief complaint) Influenza VaccineGynecol ogical ExaminationOth er specified contraceptive management 4 [facility]. [address], [place], [id number], [place]. tel:[phone] OFFICE/OUTPA TIENT VISIT, [facility], [address], [place], 676343000 , [place] tel: [phone] [facility] supply visit / depo (chief complaint) Other specified contraceptive management 4 [facility]. [address], [place], 117604191, [place]. tel:[phone] OFFICE/OUTPA TIENT VISIT, [facility], [address], [place], 101810057 , [place] tel: [phone] [facility] supply visit/ depo (chief complaint) Other specified contraceptive management 4 [facility]. [address], [place], 568529873, [place]. tel:[phone] OFFICE/OUTPA TIENT VISIT, [facility], [address], [place], 904455636 , [place] tel: [phone] [facility] control-Depo (chief complaint) Other specified contraceptive management 4 [facility]. [address], [place], 330775116, [place]. tel:[phone] OFFICE/OUTPA TIENT VISIT, [facility], [address], [place], 239048700 , [place] tel: [phone] [facility] supply visit / depo (chief complaint) Surveillance of other contraceptive method 4 Gera Melgoza. [address], [place], [id number], [place]. tel:[phone] [facility], [address], [place], 352866950 , [place] tel: [phone] [facility] annual visit (chief complaint) Gynecological ExaminationGen eral counseling on initiation of other contraceptive measuresOther specified contraceptive management 3 Jairon Lopez. [address] [place], [address], [place]. tel:[phone] OFFICE/OUTPA TIENT VISIT, [facility], [address], [place], 297882978 , [place] tel: [phone] [facility] depo (chief complaint) Surveillance of other contraceptive method 3 Joshua Owen. [address], [place], [id number], [place]. tel:[phone] OFFICE/OUTPA TIENT VISIT, [facility], [address], [place], [address] , [place] tel: [phone] [facility] depo (chief complaint) Surveillance of other contraceptive method 3 Joshua Owen. [address], [place], [id number], [place]. tel:[phone] OFFICE/OUTPA TIENT VISIT, [facility], [address], [place], [address] , [place] tel: [phone] [facility] No Information 3 Joshua Owen. [address], [place], [address], [place]. tel:[phone] OFFICE/OUTPA TIENT VISIT, [facility], [address], [place], [address] , [place] tel: [phone] [facility] No Information - 2 Jessica Trixie. [address], [place], [id number], [place]. OFFICE/OUTPA TIENT VISIT, [facility], [address], [place], [id number] , [place] tel: [phone] [facility] No Information 2 Joshua Owen. [address], [place], [id number], [place]. tel:[phone] [facility], [address], [place], [id number] , [place] tel:[phone] [facility] No Information - 2 Joshua Owen. [address], [place], [id number], [place]. tel:[phone] OFFICE/OUTPA TIENT VISIT, [facility], [address], [place], [address] , [place] tel: [phone] [facility] No Information 0 2 Joshua Owen. [address], [place], [id number], [place]. tel:[phone] OFFICE/OUTPA TIENT VISIT, [facility], [address], [place], [address] , [place] tel: [phone] [facility] No Information 2 Joshua Owen. [address], [place], [id number], [place]. tel:[phone] OFFICE/OUTPA TIENT VISIT, [facility], [address], [place], [address] , [place] tel: [phone] [facility] No Information 2 1 Visci DO Brody. [address], [place], [id number], [place]. tel: [phone] OFFICE/OUTPA TIENT VISIT, [facility], [address], [place], [address] , [place] tel: [phone] [facility] No Information 1 Visci DO Brody. [address], [place], [address], [place]. tel:[phone] PREV VISIT, NEW, AGE 18-39 [facility], [address], [place], [address] , [place] tel: [phone] [facility] No Information Margarito-0 1 Joshua Owen. [address], [place], [id number], [place]. tel:[phone] OFFICE/OUTPA TIENT VISIT, [facility], [address], [place], [address] , [place] tel: [phone] [facility] No Information 1 Visci DO Brody. [address], [place], [id number], [place]. tel: [phone] OFFICE/OUTPA TIENT VISIT, [facility], [address], [place], [address] , [place] tel: [phone] [facility] No Information 3 0 Visci DO Brody. [address], [place], [id number], [place]. tel: [phone] OFFICE/OUTPA TIENT VISIT, [facility], [address], [place], [address] , [place] tel: [phone] [facility] No Information 3- 0 Visci DO Brody. [address], [place], [address], [place]. tel: [phone] OFFICE/OUTPA TIENT VISIT, [facility], [address], [place], [address] , [place] tel: [phone] [facility] No Information 1-201 0 Visci DO Brody. [address], [place], [address], [place]. tel:[phone] PREV VISIT, [facility], AGE 18-39 [facility], [address], [place], [address] , [place] tel: [phone] [facility] No Information 0 6-201 0 Lamp Lexie. [address], [place], [id number], [place]. tel:[phone] OFFICE/OUTPA TIENT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
--- OUTSIDE RECORDS SUMMARY | 2025-07-10 13:20 | XMS_ITS | Encounter Summary ---
Author Organization [facility] Address [address] [place] [address] Care Team Providers Care [place] Pilot Name Role Phone Jesus Camacho MD Primary Care Provider [phone] Reason for Visit * ReasonCommentsReferralCOPD and chronic fatigue and inflammation elevation in blood work thinks she has immune issues Encounter Details DateTypeDepartmentCare Team (Latest Contact Info)Xxuczulaoti66/27/2025 2:20 PM EDTOffice Visit [facility] [address] [id number] Ash Greene MD [facility] [address] [address] Recurrent sinus infections (Primary Dx); Obstructive sleep apnea Social History Tobacco UseTypesPacks/DayYears UsedDateSmoking Tobacco: FormerCigarettes Tobacco Cessation:Counseling Given: Not Answered Comments:>10 years since last smoked Alcohol UseStandard Drinks/WeekCommentsYes0 (1 standard drink = 0.6 oz pure alcohol)caffeine: stackersCommentsUnknownSex and Gender InformationValue Date RecordedSex Assigned at BirthNot on fileLegal ExsHgdzga06/15/2023 8:26 PM EDTGender IdentityNot on fileSexual OrientationNot on filedocumented as of this encounter Last Filed Vital Signs Vital SignReadingTime TakenCommentsBlood Pressure--Pulse--Temperature-- Respiratory Rate--Oxygen Saturation--Inhaled Oxygen Concentration--Ocprgf016 kg (245 lb)07/10/2025 2:11 PM EDTHeight--Body Mass Index40.7707 10:35 AM EDTdocumented in this encounter Progress Notes * Ash Greene MD - 07/10/2025 2:20 PM EDT Kourtney Novak is a very pleasant 49 y.o. year old female who comes to the office today with the chief complaint of fatigue. She sees the shipping weigher because she was having tendinitis. 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 She was placed on plaquenil which was helpful for her lungs. She saw a media relations manager and was told she might have SLE. She does not feel that she has allergies as a cause of hersymptoms. She has had fatigue for about 12 months. She will often fall asleep. She has MAREK that is not treated. She has a history of recurrent bronchitis with symptoms of cough wheeze and burning in her lungs. She had PFT which was normal. She has recurrent episodes of sinus infections with symptoms of nasal airway obstruction and rhinorrhea with facial pressure. EXAM The patient appears comfortable in the office today. Lungs are clear to auscultation bilaterally. The oral mucosa is pink and healthy without any lesions or ulcers. The palate elevates in the midline. The nasal mucosa is pink and healthy. There is no epistaxis mucopus or nasal polyposis noted. The nasal septum is approximately in the midline. The skin is clear of any lesions, excoriations, or erythema. IMPRESSION: Recurrent sinus infections - given her recurrent infections we agreed to obtain humoralimmune survey HIV and have her follow up in 4 weeks to discuss the results. MAREK - I explained that untreated sleep apnea can contribute to fatigue and suggested she discuss either using CPAP or consider referral for the inspire device if he does not tolerate CPAP. I discussed with her potential complications of untreated sleep apnea including heart disease and motor vehicle accident and she understands. documented in this encounter Plan of Treatment DateTypeDepartmentCare Team (Latest Contact Info)Rhcvqyvxshd07/24/2025 2:40 PM ESTOffice Visit [facility] [place] [facility] [address] [place] [address] Ash Greene MD [address] [place] [address] NameTypePriorityAssociated DiagnosesOrder ScheduleIgGLabRoutine Recurrent sinus infections Expected: 07/10/2025 (Approximate), Expires: 07/10/2026IgELabRoutine Recurrent sinus infections Expected: 07/10/2025 (Approximate), Expires: 07/10/2026IgALabRoutine Recurrent sinus infections Expected: 07/10/2025 (Approximate), Expires: 07/10/2026STREPTOCOCCUS PNEUMONIA AB (IGG) (23 SEROTYPES)LabRoutine Recurrent sinus infections Ordered: 07/10/2025Tetanus toxoid, IgGLabRoutine Recurrent sinus infections Expected: 07/10/2025 (Approximate), Expires: 07/10/2026BC and differentialLab Routine Recurrent sinus infections Expected: 07/10/2025 (Approximate), Expires: 07/10/2026IgMLabRoutine Recurrent sinus infections Expected: 07/10/2025 (Approximate), Expires: 07/10/2026Diphtheria / Tetanus Antibody PanelLabRoutine Recurrent sinus infections Expected: 07/10/2025 (Approximate), Expires: 07/10/2026HIV-1 and HIV-2 antibodiesLabRoutine Recurrent sinus infections Expected: 07/10/2025 (Approximate), Expires: 07/10/2026documented as of this encounter Visit Diagnoses Diagnosis Recurrent sinus infections- Primary Unspecified sinusitis (chronic) Obstructive sleep apnea Obstructive sleep apnea (adult) (pediatric) documented in this encounter Care Teams Team MemberRelationshipSpecialtyStart DateEnd Date Jesus Camacho MD PCP - GeneralFamily Medicine03/12/23documented as of this encounter
--- OUTSIDE RECORDS SUMMARY | 2025-07-17 19:08 | XMS_ITS | Continuity of Care Document ---
Author Organization [facility] Address [address] [place] [address] Phone Care Team Providers Care Storage Management Architect Name Role Phone Jesus Camacho MD Primary Care Provider [phone] Jesus Camacho MD Attending Provider Krishan Nuñez DO Attending Provider [phone] Mayda Hendrix APRN Emergency Provider Chantal Ocampo ABALONE DIVER-C Attending Provider Elyssa Gomes MD Attending Provider Care Teams Patient Care Team Team Status: Active Member Role/Relationship Status David Camacho MD Primary Care Provider Active Visit Care Team Team Status: Inactive Member Role/Relationship Status David Camacho MD Primary Care Provider Active Start: May 26, 2025 End: May 26, 2025Jesus Camacho MDAttrebecca ProviderActiveStart: May 26, 2025 End: May 26, 2025 Visit Care Team Team Status: Inactive Member Role/Relationship Status David Camacho MD Primary Care Provider Active Start: May 30, 2025 End: May 30, 2025Krishan Nuñez DOAttrebecca ProviderActiveStart: May 30, 2025 End: May 30, 2025 Visit Care Team Team Status: Inactive Member Role/Relationship Status David Camacho MD Primary Care Provider Active Start: May 30, 2025 End: May 30, 2025Krishan Nuñez DOAttending ProviderActiveStart: May 30, 2025 End: May 30, 2025 Visit Care Team Team Status: Inactive Member Role/Relationship Status David Camacho MD Primary Care Provider Active Start: June 05, 2025 End: June 05Alicia Renee ProviderActiveStart: June 05, 2025 End: June 05, 2025 Visit Care Team Team Status: Inactive Member Role/Relationship Status David Camacho MD Primary Care Provider Active Start: June 13, 2025 End: June 13, 2025Sanchez Booker ProviderActiveStart: June 13, 2025 End: June 13, 2025 Visit Care Team Team Status: Inactive Member Role/Relationship Status David Camacho MD Primary Care Provider Active Start: June 19, 2025 End: June 19, 2025DoSanchez Reyes ProviderActiveStart: June 19, 2025 End: June 19, 2025 Visit Care Team Team Status: Inactive Member Role/Relationship Status David Camacho MD Primary Care Provider Active Start: June 26, 2025 End: June 26, 2025Sanchez Booker ProviderActiveStart: June 26, 2025 End: June 26, 2025 Visit Care Team Team Status: Inactive Member Role/Relationship Status David Camacho MD Primary Care Provider Active Start: June 27, 2025 End: June 27rick Ocampo NP-CAttending ProviderActiveStart: June 27, 2025 End: June 27, 2025 Visit Care Team Team Status: Inactive Member Role/Relationship Status David Camacho MD Primary Care Provider Active Start: July 12, 2025 End: July 12Sanchez Horn ProviderActiveStart: July 12, 2025 End: July 12, 2025 Visit Care Team Team Status: Inactive Member Role/Relationship Status David Camacho MD Primary Care Provider Active Start: July 12, 2025 End: July 12Sanchez Horn ProviderActiveStart: July 12, 2025 End: July 12, 2025 Patient Care Team Team Status: Inactive Member Role/Relationship Status Dates Jesus Camacho MD Primary Care Provider Active Start: July 17, 2025 End: July 17, 2025DoSanchez Reyes ProviderActiveStart: July 17, 2025 End: July 17, 2025 Chief Complaint and Reason for Visit [...] :55pm M54.14 June 27, 2025 5 :15pm 3 MONTHS July 12, 2025 3 :22pm 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 July 12, 2025 3:45pm R01.1 July 17, 2025 1 :33pm Reason for Visit Admit Date Tear of right supraspinatus tendon Septe mber 2024 1:21pm Osteochondrosis of lunate of right wrist July 12, 2025 3:22pm Right wrist pain July 12, 2025 3 :22pm Allergies, Adverse Reactions, Alerts Allergen Type Severity Reaction Last Updated Verified Status No Known Allergies Allergy Unknown July 12, 2025 2:31pmYesActive Social History Smoking Status Status Start Date End Date Date of Observa tion Never smoked tobacco (finding) June 05, 2025 9:49pm Observation Status Observation Response Date of Response Legal Sex Female (finding) Sex Assigned At BirthFemaleFebruary 1975Pregnancy StatusNSeptember 2024 Family History Relationship Condition Age at Onset Recorded Date/T sarabjit grandparent Coronary artery disease Unknown fatherEpilepsyUnknownDiabetes mellitusUnknownHepatic cirrhosisUnknownHepatitis C virus infectionUnknownHypertensionUnknownHypercholesterolemiaUnknownmother Hepatitis C virus infectionUnknownHypertensionUnknownHypercholesterolemiaUnknown fatherDeceasedUnknown Problems Active Problems Problem Diagnosis/Recorded Date Onset Date Stat us Postoperative pain of extremity October 24, 2021 7: 36am Unknown Active Acute exacerbation of chroni c obstructive airways disease November 11, 2019 11:44pm Unknown Acti ve Kienb ck's disease September 17, 2021 8:41am Unknown Active Osteochondrosis of lunate of right wrist November 24, 2023 3:42pm Unknown Active Dyspepsia and disorder of fu nction of stomach November 02, 2018 7:32am Unknown Active Cellulitis of forearm October 11, 2017 12:48am Unkno wn Active Dog bite May 16, 2019 5:05pm Unknown A ctive Anxiety September 12, 2017 3:39pm Unknown A ctive Acute pain of right shoulder January 26, 2024 1:12pm Unk nown Active Tear of right supraspinatus tendon November 24, 2023 3: 42pm Unknown Active Acute pain of left shoulder November 02, 2024 4:57pm Unknown Active Gastritis October 02, 2021 4:02am Unknown Ac tive Cat bite October 11, 2017 12:48am Unknown A ctive Epigastric pain November 02, 2018 7:32am Unknown Active Cat scratch October 09, 2017 10:05pm Unknown A ctive Cat scratch October 11, 2017 12:48am Unknown A ctive Rectal bleeding November 02, 2018 7:32am Unknown Active Right wrist pain November 24, 2023 3:42pm Unknown Active Acute appendicitis September 17, 2021 5:54am Unknown Active Biceps tendonitis January 26, 2024 2:40pm Unknown A ctive Bursitis of left shoulder November 03, 2024 9:29am U nknown Active Inactive/Resolved Problems Problem Diagnosis/Recorded Date Onset Date Stat us Rib fracture June 05, 2025 9:14pm Unknown Resolved Medications Medication Status Dose Units Route Directions Qty Days Refills S tart Date Stop Date End Date Reason(s) Instructions Adherence Oxycodone 30 mg Tablet Discontinued 30 MG PO Four times daily as needed for Pain October 09, 2017 12:00amFebruary 2018 11:19amAmoxicillin-Pot Clavulanate (Augmentin) 875-125 mg jcgfclBajozxwgwqnb8OYCGFXookg juuas87063Trugevk 2017 12:00amFebruary 2018 11:18amAzithromycin 500 mg hinjtqMmpzujxzblip183 RTNCIezjx389Dvzxlws 2017 12:00amFebruary 2017 12:00amFebruary 2017 12:04amAlbuterol Sulfate 2.5 mg /3 mL (0.083 %) Solution For Nebulization Active2.5MGINHALATIONFour times daily as needed for Shortness Of BreathDeceer 2019 12:00amUnknownLisinopril 10 mg uqkqebJbfvya46BULSJmvskXtgnhcbs 29th, 2020 12:00amkidney perfusionUnknownHydrochlorothiazide 25 mg jxrpjrLwnqhi08QBSS DailySeptember 11, 2020 12:00amUnknownBudesonide (Pulmicort) 1 mg/2 mL suspension for panfbgxucuzuKmezgb0PVMRUISQUDWJOtymg morningSeptember 11, 2020 12:00amUnknownMometasone-Formoterol (Dulera) 200-5 mcg/actuation HFA aerosol wwhqftqRebedf0LQBXMAGSTAZWKGWwaei dailySeptember 11, 2020 12:00amUnknown Ipratropium [place] 0.02 % SolutionActive0.5QQSOFQFKHLUJE3S as needed for Shortness Of Breathce2019 12:00amUnknownAspirin 325 mg TabletActive 325MGPOTwice dailyJanuary 2021 12:00amUnknownHydroxychloroquine (Plaquenil) 200 mg RnsvpbZmpiri472WJKXTcdle dailyJanuary 2021 12:00amUnknown Htawouprlm-Kdbcutstgdfqr-Akxi (Fioricet) 50-300-40 mg ElagmtkYainqh8ZOHENDNBJZ 4-6 HOURS as needed for migrainesJanuary 2021 12:00amUnknownIbuprofen 600 mg oennooDzjwzehytskc801BKZGPUSEC 4-6 HOURS as needed for gwhi2770Krufxzd 2021 12:00amJanuary 2021 11:49amdo not exceed 4 doses in a 24 hour period Oxycodone-Acetaminophen (Percocet) 5-325 mg vuuaspQiowmcxzgnal2OHKVLOTJIF 4-6 HOURS as needed for cizv7072Lpjfdcj 2021January 2021 3:22amAcute appendicitis Unspecified acute appendicitisCephalexin 500 mg dprqfgCoglokhirsaq961NSNNYoju times kwtor447Dlxalok 2021 12:00amJanuary 2021 11:45amSucralfate (Carafate) 1 gram gjrixnCembfoiskrzo5FPJJCphzjq meals and at tyqfyfl889Bboznvk 2021 12:00amJanuary 2021 11:59amOndansetron 4 mg tablet,kqgeybcxckguizZigiio5HPNJO8Z as needed for nausea and vkqfahza479Rectmhn 2021 12:00amUnknownHydrocodone-Acetaminophen 5-325 mg lrjdjkYntdjo5JKYKZ EVERY 4-6 HOURS as needed for pghq6081Ghqbodglb 2024Fracture of rib Fracture of one rib, unspecified side, initial encounter for closed fracture UnknownCarisoprodol 350 mg zsjecpPrzzjaazmrxm157JKDVCdgp times daily as needed for PainDecember 2016 12:00amFebruary 2018 11:18amPioglitazone 15 mg tabletDiscontinuedDecember 2016 12:00amJanuary 2017 9:47pmMetformin 500 mg pkdnarNmlphv7943FCDDLyglr dailyer 2016 12:00amUnknown Lamotrigine 200 mg jihpynDguses468THXQLdlmbBkwuotec 2016 12:00amanxiety UnknownRanitidine Hcl 300 mg klenkeJmyaab496SNKSAgrnx as needed for Abdominal DiscomfortSeptember 12, 2017 12:00amUnknownPantoprazole 40 tablet,delayed release (DR/EC)Rdgoqnyfnfhy16QGQNKrugv dailycemb2016 12:00amDemcl[facility] 2019 6:28amHydroxyzine Pamoate 25 mg qfsiusyVafiwzchqhwj11FQYAYhnc times daily as needed for AnxietyDecember 2016 12:00amDecember 2019 6:26am Milnacipran (Savella) 50 mg vxnkdsGqkpfw183VQEDGqkxg dailySeptember 12, 2017 12:78wmurhuqqglgsuhErffdqzUpemwy-Fahoxbuu-Xpdlrsc (Pork) (Creon) 24,000-76,000 - 120,000 unit capsule,delayed release(DR/EC)Zeytmabbjdip5KJGOXYjwfp times daily September 12, 2017 12:00amFebruary 2018 11:18amRoflumilast (Daliresp) 500 mcg jxyrjeYxatev813BVIHHBziivPbzfsspf 30th, 2017 12:00amUnknownVilazodone (Viibryd) 40 mg dwedywMnbtpx21QWUVHdkrcGwmpoftj 30th, 2017 12:00amdepression UnknownLurasidone (Latuda) 120 mg gtqfhfUtueugcvjnib147QBPUAikhkAmsbxqke 30th, 2017 12:00amFebruary 2018 11:18amCanagliflozin 100 qjxhxiYxigjohcjdyx481TG PODailyDece2016 12:00amApril 2018 12:46pmOxycodone (Oxycontin) 40 mg tablet extended release 46ihYrhpnxfdkqkc19AXIMBwsky dailySeptember 12, 2017 12:00amFebruary 2018 11:19amGlycopyrrolate 1 mg hcqexxOhpxhr3GCAG Dailybruary 2018 12:00amprofuse sweatingUnknownPioglitazone (Actos) 15 mg qugnwpYrkhfw41YNCFMeftjEwebrmdu 2018 12:00amUnknownSucralfate 1 gram stojujIxzdcocvknno9SNVCPecj times dailyFebruary 2018 12:00amDecember 2019 6:28amDoxepin 10 mg pubxhheQaicbg85CTHEGdkrf times daily as needed for AnxietyFebruary 2018 12:00amUnknownSimvastatin 20 mg pvcmduXdhuoi52FTOK DailyFebruary 2018 12:00amUnknownLubiprostone (Amitiza) 24 mcg capsule Sipsro13DMOUYZyqkk dailyFebruary 2018 12:00amchronic constipationUnknown Brexpiprazole (Rexulti) 2 mg ufovsoAubnjo1EQAHNrypxJaoxeosy 2018 12:00am anxiety/depressionUnknownDapagliflozin Propanediol 5 mg qknmmlTrpoce2CLXHDvpbm December 17, 2018 11:00pmUnknownPrednisone 50 mg ebmexgVqgtubgekzbn81GCVZYatui557 December 17, 2018 11:[facility]pm[facility] 6:28amadminister with food or milk Ibuprofen 800 mg xndfurKazrrx638IXODY7L as needed for nrcx178Vjcbqzyds2018 11:00pmUnknownAmoxicillin-Pot Clavulanate (Augmentin) 875-125 mg tablet Bjhuejvwwzlr6YFOEARqepk rynlv73986Zmbviboij2018 11:00pmDemclaren [facility] [place] 2019 6:25amPrednisone 20 mg phajzdIxgsgdgzzrry85JIMIQtwtx0710Hcwtgdxp 2019 12:00amDereunion [facility] [place] 2019 6:28amBenzonatate 100 mg AndlzsgFmiiuz336QQRSQ0S as needed for CoughJanuary 2021 12:00amUnknownSucralfate (Carafate) 1 gram toidauRzqrjt2BBNKRvdvwy meals and at bedtimeJanuary 2021 11:59amupset stomachUnknownDexlansoprazole (Dexilant) 60 mg capsule,biphase delayed releas Libijb60RDVHKsjzl dailyJanuary 2021 12:00amgerdUnknownTopiramate (Topamax) 50 mg FiltioUmoqts40BERAXbveoBzztobjl 2021 12:00amUnknownHydrocodone- Acetaminophen 5-325 mg tabletActive1 - 2TABPOEVERY 4-6 HOURS as needed for pain 5070February ostoperative pain of extremity Osteochondrosis of lunate Other acute postprocedural pain Pain in unspecified limb 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], unspecified handUnknown Doxycycline Hyclate 100 mg miypyiHnxipr607PGMXAkvgo qyojg6889Sjehpfco 2021 12:00amUnknownDiclofenac Sodium (Voltaren Arthritis Pain) 1 % yvxLsvada1QJ TOPICALFour times fcomc8002Mxm 20th, 2025 11:00pmRight wrist pain Osteochondrosis of lunate of right wrist Pain in right wrist 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], right handapply to single knee, ankle, foot; for foot includes sole/toes/top of footUnknown Nortriptyline 25 mg fjbzywxBdrqia32VUOUHbxis 2023 11:00pmUnknown Immunizations Immunization Event Date Not Given Reason 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 Number Reason(s) Given Vaccine Information Statement (VIS) Detail Administration Location COVID-19 Nika Bruno ([employer]) January 02 [id number] CtrCOVID-19 mRNANika ([employer])January [id number] [facility] CtrQuadrivalent Influenza (mdv)September 29, 2014 Procedures Procedure Date Performed Status XR dexa axial skeleton June 26, 2025 12:58p m completed US thyroid June 13, 2025 1:52pm comp leted XR shoulder RT min 2V* May 30, 2025 9:38 am completed XR ribs RT min 3V w CXR1V* June 05, 2025 8:16pm completed MR thoracic spine wo con June 27, 2025 4:17 pm completed XR pre/post mri xray June 27, 2025 4:18pm c ompleted CT chest wo con June 19, 2025 2:49pm complet ed XR wrist RT min 3V* July 12, 2025 2:45pm co mpleted Relevant Diagnostic Tests and/or Laboratory Data Laboratory Results Test Collection Date/Time Result Date/Time Result Interpretation Reference Range Result Comment Performing Site Corrected White Blood Count May 26, 2025 6:07am May 26, 2025 9:01am 8.3 10*3/uL 3.8-11.6[facility] [id number] [address] [place] [address] 48445Rxxajpnqtwn WBC CountSept2024 6:07amSeptember 2024 9:01am8.3 10*3/uL3.8-11.6[facility] [id number] [address] [facility] 10[address]Uop Blood CountSeptember 2024 6:07amSeptember 2024 9:01am4.27 10*6/uL3.60-5.00[facility] [id number] [address] [facility] 70393JvypxitzukTjdrecfmr 2024 6:07amSeptember 2024 9:01am12.5 g/dL11.8-15.4[facility] [id number] [address] [place] [address] 46826NaihkmodtgHrjyzlwvf 2024 6:07amSeptember 2024 9:01am37.8 %34.0-46.4[facility] [id number] [address] [place] [address] 06292Dlvx Corpuscular VolumeSeptember 2024 6:07amSeptember 2024 9:01am88.5 uW36-398ZutswnlnbTrihealth [facility] [id number] [address] [place] [address] 74828Zmye Corpuscular HemoglobinSeptember 2024 6:07amSeptember 2024 9:01am29.2 pg24.7-34.3[facility] [id number] [address] [place] [address] 40858Ptwa Corpuscular Hemoglobin ConcentSeptember 2024 6:07am Nica 2024 9:01am33.0 g/dL32.0-35.0[facility] [id number] [address] [place] [address] 94966Bor Cell Distribution WidthSeptember 2024 6:07amSeptember 2024 9:01am13.5 %11.9-15.3[facility] [id number] [address] [facility] 11079Snxxrknq CountSeptember 2024 6:07amSeptember 2024 9:29kv332 10*3/fC051-943KxmwgwwczTrihealth [facility] [id number] [address] [facility] 33470Becy Platelet VolumeSeptember 2024 6:07amSeptember 2024 9:01am8.3 fL6.3-10.7[facility] [id number] [address] [facility] 41616Pcprjxarwew (%) (Auto)May 26, 2025 6:07amSept2024 9:01am50.3 %.[facility] [id number] [address] [facility] 49161Oczzwpqspco (%) (Auto)May 26, 2025 6:07amSept2024 9:01am34.8 %.[facility] [id number] [address] [facility] [address]44Catguloig (%) (Auto)May 26, 2025 6:07amSept2024 9:01am11.2 %.[facility] [id number] [address] [facility] 30430Ihcxqjzamet (%) (Auto)May 26, 2025 6:07amSept2024 9:01am3.0 %.[facility] [id number] [address] [facility] 26702Bivwmmbag (%) (Auto)May 26, 2025 6:07amSept2024 9:01am0.7 %.[facility] [id number] [address] [facility] 35121Ixncvsoet RBC Relative Count (auto)May 26, 2025 6:07am May 26, 2025 9:01am0.1 /100{WBC}0-0.5[facility] [id number] [address] [facility] 49847Soyjaonrrzb # (Auto)May 26, 2025 6:07amSept2024 9:01am4.2 10*3/uL1.8-7.7[facility] [id number] [address] [facility] 478[address]Sfrjrnhdanp # (Auto)May 26, 2025 6:07amSept2024 9:01am2.9 10*3/uL1.00-4.8[facility] [id number] [address] [facility] 16092Kkqnbibnv # (Auto)May 26, 2025 6:07amSept2024 9:01am0.9 10*3/uLAbove high normal0.0-0.8[facility] [id number] [address] [facility] 21327Xuwoafolbnh # (Auto)May 26, 2025 6:07amSeptember 2024 9:01am0.2 10*3/uL0.0-0.45[facility] [id number] [address] [facility] 65445Oxrqsodpm # (Auto)May 26, 2025 6:07amSeptember 2024 9:01am0.1 10*3/uL0.0-0.2[facility] [id number] [address] [facility] 07916Qeakhyu LevelSeptember 2024 6:11amSeptember 2024 9:20am88 mg/uB61-924BYX recommended reference rangeRandom Glucose Reference Range is dependent on time and content of last meal. Glucose of more than 200 mg/dL in a nonstressed, ambulatory subject supports the diagnosisof Diabetes Mellitus.[facility] [id number] [address] [facility] 956[address]Nuqjy Urea NitrogenSeptember 2024 6:11amSept2024 9:20am15 mg/dL7-25[facility] [id number] [address] [facility] 90439DbwuzbrbatSdnodcloj 2024 6:11amSept2024 9:20am0.85 mg/dL0.60-1.20[facility] [id number] [address] [facility] 24286Wljdfqcac GFR (CKD-EPI)May 26, 2025 6:11amSept2024 9:20am> 60.0 mL/MinTrihealth [facility]hes[facility]tr [id number] [address] [facility] 02542Tmtzek LevelSeptember 2024 6:11amSeptember 2024 9:40ay579 mmol/Q618-118KxouorzwdTrihealth Bethesda [facility] [id number] [address] [facility] 74967Hkebckgkh LevelSeptember 2024 6:11amSeptember 2024 9:20am4.6 mmol/L3.5-5.1[facility] [id number] [address] [facility] 67902Agflrrgo LevelSeptember 2024 6:11amSeptember 2024 9:48cw561 mmol/L93-167WzulknqeoTrihealth [facility]hes[facility] [id number] [address] [facility] 52753Rqhcsq Dioxide LevelSeptember 2024 6:11amSeptember 2024 9:20am26.4 mmol/L21.0-31.0[facility] [id number] [address] [facility] 59283Zhjwc GapSeptember 2024 6:11amSeptember 2024 9:20am 13.2 mEq/L6.0-15.0[facility] [id number] [address] [facility] 06881Uuqesde LevelSeptember 2024 6:11amSeptember 2024 9:20am9.1 mg/dL8.6-10.3[facility] [id number] [address] [facility] 18557Ypwurnzvnd LevelSeptember 2024 6:07amSeptember 2024 9:21am3.8 mg/dL2.5-4.5[facility] [id number] [address] [facility] 40307Crnnoyqbt LevelSeptember 2024 6:07amSeptember 2024 9:21am1.8 mg/dLBelow low normal1.9-2.7[facility] [id number] [address] [facility] 30069Bkhaq ProteinSeptember 2024 6:11amSeptember 2024 9:20am6.5 g/dL6.4-8.9[facility] [id number] [address] [facility] 80841XqszsgwQgcbanzny 2024 6:11amSeptember 2024 9:20am 4.2 g/dL3.5-5.7[facility] [id number] [address] [facility] 54151InnjonyrInehyqnhr 2024 6:11amSeptember 2024 9:20am 2.3 g/dLTrihealth Bethesda North Hospital [facility]tr [id number] [address] [facility] 89985Srqxjcy/Globulin RatioSeptember 2024 6:11amSeptember 2024 9:20am1.8[facility] [id number] [address] [facility] 30281Nqtdh BilirubinSeptember 2024 6:11amSeptember 2024 9:20am0.3 mg/dL0.3-1.0[facility] [id number] [address] [facility] 38691Wfazdmtyy Amino Transf (AST/SGOT)May 26, 2025 6:11am May 26, 2025 9:20am12 U/LBelow low oblthd91-17LitmazdosTrihealth Bethesda North Hospital [facility]tr [id number] [address] [facility] 64108Dgyfmxq Aminotransferase (ALT/SGPT)May 26, 2025 6:11am May 26, 2025 9:20am17 U/L7-52[facility] [id number] [address] [facility] 94173Jpvhwswm PhosphataseSeptember 2024 6:11amSeptember 2024 9:20am46 U/K75-662JmqemnfgsTrihealth Bethesda North [facility] [id number] [address] [facility] 51651Zizb LevelSeptember 2024 6:07amSeptember 2024 9:21am45 ug/dLBelow low -495QfpzownofTrihealth [facility] [id number] [address] [facility] 99722Lvxfc Iron Binding CapacitySeptember 2024 6:07amSeptember 2024 9:08ha790 ug/pM806-456CtnbdbqayTrihealth Bethesda North [facility]tr [id number] [address] [place] [address] 10712Kfro SaturationSeptember 2024 6:07amSeptember 2024 9:21am10.2 %Below low owrtrl80-25NjpwaxvzoTrihealth [facility]hes[facility] [id number] [address] [facility] 12219KmvkatsvyzyWqoxttpzb 2024 6:07amSeptember 2024 9:90zq009 mg/tY733-299YcatndmyrTrihealth Bethesda [facility] [id number] [address] [facility] 32006ZapfhixiVahdcmwtr 2024 6:07amSept2024 9:43am 8.1 ng/mLBelow low chupgq61.0-306.8[facility] [id number] [address] [facility] 20432Beeldwnhsth LevelSeptember 2024 6:07amSeptember 2024 9:80kf249 mg/dLAbove high ofidcq078-276Tkwz less than 200 mg/dl low riskChol 201-239 mg/dl borderline riskChol 240 mg/dl and greater high risk [facility] [id number] [address] [facility] [address]15[address]JEJ CholesterolSeptember 2024 6:07amSeptember 2024 9:21am67 mg/uF48-78XQG CHOL ATP-III CLASSIFICATION Cardiovascular RiskHDL > or equal to 60 mg/dL LOWHDL < 40 mg/dL [facility] [id number] [address] [facility] 46524Iaeasfkiwebtn LevelSeptember 2024 6:07amSeptember 2024 9:48yb754 mg/dLAbove high normal0-149TRIG ATP III CLASSIFICATIONTRIG less than 150 mg/dL NormalTRIG 150-199 mg/dL Borderline highTRIG 200-500 mg/dL High TRIG greater than 500 mg/dL Very highStandard traceable to the Center for Disease Conrtrol and Prevention (CDC) test method.[facility] [id number] [address] [facility] 71002NAU Cholesterol, CalculatedSeptember 2024 6:07amSept2024 9:21am91 mg/dL0-100LDL ATP III CLASSIFICATIONLDL less than 100 mg/dL OptimalLDL 100-129 mg/dL Near or above eztrydnHXR108-073 mg/dL Borderline highLDL 160-189 mg/dL HighLDL greater than 189 mg/dL Very highTrihealth Bethesda [facility]tr [id number] [address] [facility] 78935UORU CholesterolSeptember 2024 6:07amSept2024 9:21am47 mg/dLTrihealth Bethesda North Hospital [facility]tr [id number] [address] [facility] 04652Sgqqpjtgmtc/HDL RatioSeptember 2024 6:07amSept2024 9:21am3.1<5.0[facility] [id number] [address] [facility] 14888Wluyroc B12 LevelSeptember 2024 6:07amSept2024 9:73gi650 pg/tS053-762NvmnpgjekTrihealth Bethesda [facility] [id number] [address] [facility] 69120FpskucLshkjdzqp 2024 6:07amSept2024 10:28am 30.0 ng/mL>5.9Folate reference range: >5.9 ng/mlThe WHO technical consultation on folate and vitamin o13irthvaxhaomp has determined that folate concentrations lessthan 4 ng/ml are considered deficient.[facility] [id number] [address] [facility] 51923Ylqjr ThyroxineSept2024 6:07amSept2024 1:51pm11.24 ug/dL5.39-11.82[facility] [id number] [address] [place] [address] 67345Tdyd TriiodothyronineSeptember 2024 6:07amSept2024 9:23am3.72 pg/mL2.50-3.90[facility] [id number] [address] [facility] 73708Afaxzjc Stimulating Hormone 3rd GenSeptember 2024 6:07am May 26, 2025 9:34am4.15 u[iU]/mL0.45-5.33[facility] [id number] [address] [facility] [facility] [id number] Vitamin D TotalSeptember 2024 6:07amSept2024 9:49am31.9 ng/lJ17-711EYBPEII D STATUS 25(OH)VITAMIN D RANGE (ng/mL) Deficient <20 Insufficient 20 to <34Tqppmficvn46 to 100Reference: Nain MF,Anum NC, Brynn APARICIO, et al. Evaluation,treatment, and prevention of vitamin D deficiency; an Endocrine Society clinical practice guideline. JCEM. 2011 Mar; 96(7):1911-30.[facility] [id number] [address] [facility] [address]Geroqpda Creatinine Clearance (ChemSeptember 2024 6:11am May 26, 2025 9:20amN/[facility] [id number] [address] [facility] [id number] E8cEslhkeicl 2024 6:07amSept2024 2:05pm5.7 %Above high normal4.3-5.6Increased risk for diabetes: 5.7 - 6.4diabetes: >6.4glycemic control for adults with diabetes: <7.0[facility] [id number] [address] [facility] [address]Oqsmaatnu Average GlucoseSeptember 2024 6:07amSept2024 2:14zy548 mg/dLTrihealth [facility] [id number] [address] [facility] [address]Fjmqrsd LevelSept2024 6:07amSeptember 2024 4:36am15.6 u[iU]/mL2.6-24.9Performed at: - [facility] [id number] Director: Maxim Daniel PhD, Phone: [phone] [facility] Reports Author Damion Milton Kindred HealthcareAuthoredSeptember 2024 8:00pmReport Dictated Date/TimeDictated ByStatusRadiology ReportSeptember 2024 8:00pm Damion Milton II MDcompleteF[facility] [address] [place] [address] XRay Report Signed Patient: Kourtney Novak MR#: [id number] : 1975 Acct:[id number] Age/Sex: 49 / F ADM Date: 5 Loc: [facility] Room: Type: [facility] Attending Dr: Krishan Nuñez DO Copies [...] in the acromioclavicular joint. Impression dictated by: Damion Milton M.D. 05/30/2025 8:02 PM Dictation Location: [place] [address] Transcribed By: [facility] 05/30/252001 Dictated By: Damion Milton II, MD 05/30/251999 Signed By: <Electronically signed by Damion Milton II, MD in OV> 05/30/252001 Author Lincoln Hoffmann Kindred HealthcareAuthoredSeptember 2024 9:48pmReport Dictated Date/TimeDictated ByStatusRadiology ReportSeptember 2024 9:48pm Lincoln Hoffmann [facility] [place] [address] [place] [address] XRay Report Signed Patient: Kourtney Novak MR#: [id number] : 1975 Acct:[id number] Age/Sex: 49 / F ADM Date: 5 Loc: ER Room: Type: [facility] ER Attending Dr: Copies to: Mayda [...] Hoffmann M.D. 06/05/2025 9:52 PM Dictation Location: [facility]-- Transcribed By: [facility] 06/05/252151 Dictated By: Lincoln Hoffmann MD 06/05/252147 Signed By: <Electronically signed by Lincoln Hoffmann MD in OV> 06/05/252151 Author George Gray Kindred HealthcareAuthoredSeptember 2024 10:26pmReport Dictated Date/TimeDictated ByStatusRadiology ReportSeptember 2024 10:26pm [facility]neyF[facility] [place] [address] [place] [address] Ultrasound Report Signed Patient: Kourtney Novak MR#: [id number] : 1975 Acct:[id number] Age/Sex: 49 / F ADM Date: 5 Loc: Room: Type: [facility] Attending Dr: Jesus Camacho MD Ordering Provider: Jesus Camacho MD Date of Service: 06/13/25 US/US thyroid: E04.1 Copies to: Jesus Camacho MD~ Thyroid Ultrasound HISTORY: Nontoxic single thyroid [...] Gray M.D. 06/13/2025 10:29 PM Dictation Location: [facility]--20 Tech: Tana Chahal Transcribed By: GRACIE 06/13/252228 Dictated By: George Gray DO 06/13/252225 Signed By: <Electronically signed by George Gray DO in OV> 06/13/252228 Author Lincoln Hoffmann Kindred HealthcareAuthoredOctober 2024 11:15pmReportDictated Date/TimeDictated ByStatusRadiology ReportOctober 2024 11:15pmLincoln Hoffmann [facility] [place] [address] [place] [address] CT Scan Report Signed Patient: Kourtney Novak MR#: [id number] : 1975 Acct:[id number] Age/Sex: 49 / F ADM Date: 5 Loc: CT Room: Type: [facility] Attending Dr: Jesus Camacho MD Copies to: Jesus Camacho MD~ Ordering Provider: Jesus Camacho MD Date of Service: 06/19/25 CT/CT chest [...] Hoffmann M.D. 06/19/2025 11:19 PM Dictation Location: [facility] Transcribed By: GRACIE 06/19/252318 Dictated By: Lincoln Hoffmann MD 06/19/252314 Signed By: <Electronically signed by Lincoln Hoffmann MD in OV> 06/19/259 Author Damion Milton Kindred HealthcareAuthoredOctcumberland hall hospital 2024 11:21pmReport Dictated Date/TimeDictated ByStatusRadiology ReportOctober 2024 11:21pm Damion Milton II [facility] [place] [address] [place] [address] MRI Report Signed Patient: Kourtney Novak MR#: [id number] : 1975 Acct:[id number] Age/Sex: 49 / F ADM Date: 5 Loc: Room: Type: [facility] Attending Dr: Chantal LAMBERT Copies to: FAUSTO Salvador~ Ordering Provider: FAUSTO Salvador Date of Service: 06/27/25 MR/MR thoracic spine wo con: M54.14 ([id number]) XR/XR pre/post mri xray: M54.14 MR thoracic [...] heights. The marrow signal is within normal limi ts. No epidural or paraspinous fluid collection is [...] Milton M.D. 06/27/2025 11:26 PM Dictation Location: [place] [address] Transcribed By: [facility] 06/27/252325 Dictated By: Damion Milton II, MD 06/27/252320 Signed By: <Electronically signed by Damion Milton II, MD in OV> 06/27/252325 Author George Gray Kindred HealthcareAuthoredOctober 2024 4:55pmReportDictated Date/TimeDictated ByStatusRadiology ReportOctober 2024 4:55pmLani KinneyFlower [facility] [address] [place] [address] XRay Report Signed Patient: Kourtney Novak MR#: [id number] : 1975 Acct:[id number] Age/Sex: 49 / F ADM Date: 5 Loc: [facility] Room: Type: [facility] Attending Dr: Elyssa Gomes MD Copies to: Elyssa Gomes MD~ Ordering Provider: Elyssa Gomes MD Date of Service: 07/12/25 XR/XR wrist RT min 3V*: 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 5 views right wrist HISTORY: Status post right ulnar wrist pain. Tfcc pain. COMPARISON: 12/27/2024 Increased sclerosis of lunate consistent with Progressive avascular necrosis of the lunate. Ulnar minus variance. Continued Posterior bony fragmentation. Cystic changes of the sigmoid notch of the radius consistent with renal core decompression.. 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 Stable postsurgical changes Impression dictated by: George Gray M.D. 07/12/2025 4:59 PM Dictation Location: [place] [address] Transcribed By: [facility] 07/12/251658 Dictated By: George Gray DO 07/12/251654 Signed By: <Electronically signed by George Gray DO in OV> 07/12/251658 Vital Signs Vital Reading Result Reference Range Collection Date/Time Height 64 [in_i] June 05, 2025 7:63kuCzzhyc681.39 kgSept2024 7:19pmBody Hddversaqdh22.3 [degF]97.6-99.0Sept2024 7:19pmHeart Rate74 /min 60-100Sept2024 9:31pmRespiratory rate16 /tfv24-38Psccbzrxv 22nd, 2025 9:31pmOxygen saturation by Pulse womdxcim53 %95-100Sept2024 9:31pmBP Owavtvjh927 mm[Hg]100-140September 2024 9:31pmBP Fnfdxglfo82 mm[Hg]60-100Sept2024 9:31pm Advance Directives Advance Directive Response Recorded Date/ Time Advance Directives Yes December 09 019 1:20pm Insurance Providers Guarantor Kourtney Novak Address [address] [facility] [address]Utjvrxv Info.Home Phone: Payer Group Member ID Coverage Type Subscriber Relationship to Subscriber Effective Date Expiration Date Medicaid Citizen [place] [id number] L [place] Id: [id number] [address] [facility] [address] Home Phone: Email: [email or web address] Health[employer]icare Id: [id number] L [place] Id: [id number] [address] [facility] [address] Home Phone: Email: [email or web address] Encounters Encounter Location(s) Arrival/Admit Date Discharge/Departure Date Discharge/Departure Disposition Provider(s) Departed [facility] May 26, 2025 7:02am May 26, 2025 7:03am Discharged to home care or self care (routine discharge) Ivis Basurto MD Departed [facility] May 30, 2025 10:38am May 30, 2025 10:39am Discharged to home care or self care (routine discharge) Krishan Nuñez DO Departed Physician/ Provider Office Visit -[facility] May 30, 2025 1:21pm May 30, 2025 1:57pm Discharged to home care or self care (routine discharge) Krishan Nuñez DO Departed Emergency -Emergency Room June 05, 2025 8:09pm June 05, 2025 10:35pm Discharged to home care or self care (routine discharge) [facility]ed [facility] 2:50pmSept2024 2:51pmDischarged to home care or self care (routine discharge)[facility]-CT Scan [facility]Oct[facility] 2024 3:46pmOctober 2024 3:47pmDischarged to home care or self care (routine discharge)Ivis Basurto MDDeparted [facility] 1:55pm June 26, 2025 1:56pmDischarged to home care or self care (routine discharge)Ivis Basurto MDDeparted Clinical-MRI [place] 20[place] 5:15pmOct2024 5:16pmDischarged to home care or self care (routine discharge)Chantal Ocampo , PANDA-CDeparted Physician/Provider [facility] 3:22pmOctober 2024 4:12pmDischarged to home care or self care (routine discharge)RAMON Clarkeeparted Clinical-XRay [facility] 2024 3:45pmOctober 2024 3:46pm Discharged to home care or self care (routine discharge)Elyssa Gomes MD [facility] 20[facility] 1:33pmNovember 2024 1:34pmDischarged to home care or self care (routine discharge)Ivis Basurto MD Recent Diagnosis Onset Date Admit Date Tear of right supraspinatus tendon Unknown May 30, 2025 1:21pm Osteochondrosis of lunate of right wrist Unknown July 12, 2025 3:22pm Right wrist pain Unknown July 12, 2 025 3:22pm Assessments Diagnosis Onset Date Resolution Status Admit Date Tear of right supraspinatus tendon acuteSeptember 2024 1:21pmOsteochondrosis of lunate of right wristacute July 12, 2025 3:22pmRight wrist painacuteOctober 2024 3:22pm Plan of Treatment Author Elyssa Gomes [facility] 2024 8:48pmImages were reviewed in detail with the patient. We will continue to treat this conservatively. We discussed an injection at this time and patient wishes to proceed. Under sterile condition, 0.75 cc of Kenalog/ 0.75 cc bupivacaine were injected into the right ulnar wrist/TFCC. Patient tolerated the procedure well. All questions were answered. She will follow up in 3 months. 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) - Overall patient had previosuly recovered well from her previous wrist denervation surgery and lunate revascularization procedure with resolution of preoperative pain and but recently has begun to develop recurrence of wrist radiocarpal joint pain - Edema reduction - Scar management - Pain control - Continue to advance weight bearing and activities as pain tolerance, motion, and strength allow - May discontinue wrist brace or use as needed - Home finger range of motion exercises but avoid stretching of wrist for now - Trial of topical voltaren gel - Trial of topical lidocaine patch - 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 We have discussed further potential treatment options including cortisone injection and nonoperative treatment supportive options along with operative treatment such as hydrocarbon lunate versus wrist radiocarpal joint fusion. Overall given the arthritic changes and joint space narrowing, the most predictable outcome and prognosis would be with a wrist radiocarpal joint fusion as with the pirate carbon lunate there would still be continued arthritic changes at the distal radius. - Regarding volar wrist swelling and potential ganglion cyst versus FCR tendinitis, discussion held with patient regarding diagnosis and treatment options. At this time we have discussed nonoperative versus operative treatment options. Ganglion cysts are a common and benign finding often arising from a breach in the capsule of a joint or from a tendon sheath/ normal structure. Occasionally, they may undergo spontaneous resolution. In general, nonoperative measures would include simple observation plus/ minus compression wrapping and braces for activities versus trial of office based aspiration/ injection. Though potentially successful, nonoperative treatment (primarily aspiration/ injection) is associated with a 90% chance of recurrence and a 10% chance of permanent resolution. In general, operative treatment would include excision of the cyst. Surgical treatment is often associated with 10% chance of recurrence and a 90% chance of permanent resolution. Surgical treatment carries known and unknown risks including but not limited to: pain, swelling, infection (superficial or deep), blood loss, injury to normal structures, and recurrence of the cyst. - At this time, the patient has elected for trial of topical voltaren gel - Pain control with NSAIDs as needed in the interim - Compression wrapping as needed in the interim - Hand OT referral for iontophoresis/ phonophoresis or potential small cortisone injection trial as needed in future - Xrays reviewed with patient - Follow up 3 months versus as needed for reevaluation and potential repeat injection versus surgical planning INJECTION ADMINISTERED: - Patient was given an injection of the right ulnar wrist and TFCC with: 0.75 cc Kenalog (40 mg/ 1 cc concentration) + 0.75 cc 1% Lidocaine plain without epinephrine - Patient was counseled that there may be some swelling, inflammation, and mild pain in the area of injection for the first few days following treatment, which may be controlled with anti-inflammatory pain medication as needed. Patient was counseled that it may take time to note full resolution of pain and symptoms following the injection, and occasionally a series of injections is necessary for full or lasting relief of pain and symptoms. Patient was counseled that some individuals may experience skin hypopigmentation changes or fat atrophy in the area of steroid application following injection. Patient was counseled that if they are diabetic, there may be temporary changes in their blood sugar levels which may require more frequent blood sugar changes or temporary adjustment in their insulin coverage. - Patient was instructed to notify a physician if they note any concerning signs of infection including but not limited to fever, warmth, erythema, or ascending cellulitis in the area of steroid injection. Author Africa Unger Kindred HealthcareAuthoredSeptember 2024 1:07pmImages were reviewed with the patient and possible [...] given order for physical therapy. A 4/1cc Nando / Kenalog cortisone injection was performed into [...] Future Visits Future appointment information is unavailable Future Procedures Future procedure information is unavailable Future Medications Future medication information is unavailable Patient Instructions Instruction Admit Date Rib fracture or bruised rib - ED dischar ge instructions June 05, 2025 8:09pm
--- OUTSIDE RECORDS SUMMARY | 2025-07-24 06:56 | XMS_ITS | CCD ---
Author Organization [facility] Care Team Providers Care Media Planner Name Role Phone PHYSICIAN, DEFAULT Unavailable Unavailable [...] Provider MD Jesus Gonzalez Attending Provider Hank ([facility]), MARILEE Platt Attending Provider [phone] Jesus Gonzalez MD Unavailable Jesus Gonzalez MD Primary Care Provider Jesus Gonzalez MD Unavailable Jesus Gonzalez MD Primary Care Provider Jesus Gonzalez MD Primary Care Provider MD Jesus Gonzalez Primary Care Provider MD Jeuss Gonzalez Attending Provider MD Zulema Wood Attending [...] Gomes MD Attending Provider Jesus Gonzalez MD Primary Care Provider Jesus Gonzalez MD Primary Care Provider Elyssa Gomes MD Attending Provider Jesus Gonzalez MD Attending Provider [phone] [facility], Zulema Unavailable UnavailJesus Ko MD Primary Care Provider [phone] Elyssa Gomes MD Attending Provider Jesus Gonzalez MD Attending Provider Jesus Gonzalez MD Primary Care Provider Krishan Nuñez DO Attending Provider [phone] Darrick MCGHEE, Andrius Vytautviviane Attending Unavailable Giedraitis , Andrius Vytautas Attending Unavailable Giedraitis , Andrius Vytautas Attending Unavailable Giedraitis , Andrius Vytautas Attending Unavailable Giedraitis , Andrius Vytautas Attending Unavailable Giedraitis , Andrius Vytautas Attending Unavailable Mayda Hendrix APRN Emergency Provider [phone] [facility], Zulema Unavailable Unavaila ERIK Loya Attending Unavailable HOY, JESUS M Primary Care Unavailable HOY, JESUS M Primary Care Unavailable STEPHANIE MOY Attending Unavailable ZULEMA WOOD Attending Unavailable HOY, JESUS M Primary Care Unavailable HOY, JESUS M Primary Care Unavailable RACHELE FENTON Attending Unavailable HOY, JESUS M Primary Care Unavailable PINEDAFRANKLO F Admitting Unavailable PINEDA, ERIK F Attending Unavailable PINEDA, ERIK F Referring Unavailable HOY, JESUS M Primary Care Unavailable HOY, JESUS M Primary Care Unavailable ZULEMA WOOD Referring Unavailable PINEDAERIK F Referring Unavailable HOY, JESUS M Primary Care Unavailable MEHUL MARTIN Referring Unavailable HOY, JESUS M Primary Care Unavailable HOY, JESUS M Primary Care Unavailable PINEDAERIK F Attending Unavailable HOY, JESUS M Primary Care Unavailable HAMDAN, MOHAMMAD Attending Unavailable HOY, JESUS M Primary Care Unavailable HOY, JESUS M Primary Care Unavailable ZULEMA WOOD Attending Unavailable HOY, JESUS M Primary Care Unavailable Jesus Gonzalez MD Primary Care Provider Damaris MOSQUEDA-CChantal Attending Provider Jesus Gonzalez MD Primary Care Unavailable Kanani DMD, Jonathan Attending Unavailable YOLA WILBURN Attending Unavailable LAMAR DORSEY Attending Unavailable ESTEVAN POLANCO Attending Unavailable LAMAR DORSEY Referring Unavailable SEAN GREENE Attending Unavailable Kanani DMD, Jonathan Unavailable Unavailable Elyssa Gomes MD Attending Provider Jesus Gonzalez MD Primary Care Provider Jesus Gonzalez MD Attending Provider [phone] Krishan Nuñez DO Attending Provider Mayda Hendrix APRN Emergency Provider Damaris REGULATOR OPERATOR-CChantal Attending Provider [phone] Elyssa Gomes MD Attending Provider Hoy, Jesus M Admitting Unavailable Hoy, Jesus M Primary Care Unavailable Hoy, Jesus M Attending Unavailable Hoy, Jesus M Primary Care Unavailable Krishan Nuñez Attending Unavailable Krishan Nuñez Admitting Unavailable Hoy, Jesus M Primary Care Unavailable Hoy, Jesus M Admitting Unavailable Hoy, Jesus M Attending Unavailable Hoy, Jesus M Primary Care Unavailable Hoy, Jesus M Admitting Unavailable Hoy, Jesus M Attending Unavailable Hoy, Jesus M Primary Care Unavailable Mayda Hendrix Attending Unavailable Mayda Hendrix Admitting Unavailable Hoy, Jesus M Primary Care Unavailable Hoy, Jesus M Admitting Unavailable Hoy, Jesus M Attending Unavailable Hoy, Jesus M Primary Care Unavailable Chantal Ocampo Attending Unavailable Chantal Ocampo Admitting Unavailable Hoy, Jesus M Primary Care Unavailable Elyssa Gomes Attending Unavailable Elyssa Gomes Admitting Unavailable Hoy, Jesus M Primary Care Unavailable Hoy, Jesus M Admitting Unavailable Hoy, Jesus M Attending Unavailable Self, Referral Attending Unavailable Self, Referral Admitting Unavailable Jesus Gonzalez M Primary Care Unavailable Jesus Gonzalez M Primary Care Unavailable Zulema Wood Attending Unavailable Zulema Wood Admitting Unavailable Jesus Gonzalez M Primary Care Unavailable Alessia Broderick Attending Unavailable Alessia Broderick Admitting Unavailable Jesus Gonzalez M Attending Unavailable Jesus Gonzalez M Admitting Unavailable HoJesus herbert M Primary Care Unavailable Luispiedad, Jesus M Primary Care Unavailable Elyssa Gomes Admitting Unavailable Elyssa Gomes Attending Unavailable Jesus Gonzalez M Attending Unavailable Jesus Gonzalez M Admitting Unavailable Eric Gonzalezlas M Primary Care Unavailable Medications Current Medications MedicationDrug Class(es)DatesSig (Normalized)Sig (Original)acetaminophen 325 mg oral tablet (16 sources)Start: 22-25-0050bbrc 2 tablets enteral route every four hours as neededacetaminophen (TYLENOL) 325 mg tablet 2 tablets by ORAL/FEEDING TUBE route every 4 hours as needed for pain. 02/23/2025 Activeacetaminophen 300 mg / butalbital 50 mg / caffeine 40 mg oral capsule (20 sources)Barbiturate, Central Nervous System Stimulant, MethylxanthineStart: 92-74-8232lldq 1 capsule by mouth every four to six hours as neededStart: 02-18-2021 End: 12-90-1681ahjh 1 tablet by mouth every four hours as needed, then take 4 tablets by mouth once daily as neededacetaminophen 325 mg-caffeine 40 mg- butalbital 50 mg (FIORICET) per tablet Take 1 tablet by mouth every four hours as needed Max 4 per day 0 02/18/2021 06/30/2023 Discontinued (Course of therapy completed)take 1 tablet by mouth four times daily as needed for headache ggypyzohsk-jlkmtffbagxuk-erhktqkd 50-325-40 MG tablet TAKE 1 TABLET BY MOUTH FOUR TIMES DAILY NEEDED FOR HEADACHE Oral for 15 Active End: 40-85-5798hemrgjmzzardy 325 mg-caffeine 40 mg-butalbital 50 mg (FIORICET) per 15 mL oral liquidtake 1 capsule by mouth every four hoursFioricet 50-300-40 MG 1 capsule as needed Orally every 4 hrs ActiveComment on above:Take 1 tablet by mouth every four hours as needed Max 4 per dayacetaminophen 325 mg / HYDROcodone bitartrate 5 mg oral tablet (20 sources)Opioid AgonistStart: 06-43-6947fmrd 1 tablet by mouth every four to six hours as needed for painalbuterol 0.83 mg/ml inhalation solution (20 sources)beta2-Adrenergic AgonistStart: 20-54-7493zlju 2.5 mg by inhalation four times daily [...] oral tablet (20 sources)Penicillin-class AntibacterialStart: 07-13-2024 End: 46-12-1552cxau 1 tablet by mouth in the morningamoxicillin-clavulanate (Augmentin) 875-125 MG tablet Indications: Tooth infection Take 1 tablet (875 mg) by mouth in the morning and 1 tablet (875 mg) before bedtime. Do all this for 10 days. 20 tablet 07/13/2024 07/23/2024 ActiveStart: 05-16-2019 End: 38-61-7348tgfr 1 tablet by mouth twice dailyAmoxicillin-Pot Clavulanate (Augmentin) 875-125 mg tablet Discontinued 1 TAB PO Twice daily 20 10 0September 2018 11:00pm September 11, 2020 6:25amStart: 10-09-2017 End: 07-43-6767hvhz 1 tablet by mouth twice dailyAmoxicillin-Pot Clavulanate (Augmentin) 875-125 mg tablet Discontinued 1 TAB PO Twice daily 20 10 0January 2017 12:00am October 28, 2018 11:18amaspirin 325 mg oral tablet (20 sources)Platelet Aggregation Inhibitor, Nonsteroidal Anti-inflammatory Drug Start: 48-01-6641pcok 1 tablet by mouth twice dailybenzonatate 100 mg oral capsule (20 sources)Non-narcotic AntitussiveStart: 81-69-0499eirh 2 capsules by mouth every four hours as needed for coughStart: 87-03-5538kqtt 200 mg by mouth every four hoursBenzonatate Active 200 MG PO Q4H October 10, 2021 1:00ambenzonatate (TESSALON PERLES ORAL) Activetake 1 capsule by mouth three times daily as needed Tessalon Perles 100 MG 1 capsule as needed Orally Three times a day Active benzonatate (TESSALON PERLES ORAL)Blood Glucose Monitoring Suppl (True Metrix Meter) w/Device kit (11 sources)Start: 72-85-7483Nuoei Glucose Monitoring Suppl (True Metrix Meter) w/Device kit USE TO TEST BLOOD SUGAR EVERY DAY 03/10/2023 Activebrexpiprazole 2 mg oral tablet (20 sources)Atypical AntipsychoticStart: 10-28-2018 End: 90-32-7852elcb 1 tablet by mouth once dailyComment on above:Take 2 mg by mouth once daily.budesonide 0.5 mg/ml inhalation suspension (20 sources)CorticosteroidStart: 09-11-2020 End: 39-58-6101wssl 1 mg by inhalation once daily in the morningtake 4 mL by inhalation four times dailyPulmicort 1 MG/2ML 4 ml Inhalation Four times a day ActiveComment on above:INHALE 1 (ONE) vial via NEBULIZER ONCE DAILYdapagliflozin 5 mg oral tablet (20 sources)Sodium-Glucose Cotransporter 2 InhibitorStart: 12-18-2018 End: 21-65-4355rfuk 1 tablet by mouth once dailyComment on above:Take 5 mg by mouth once daily.dexamethasone 2 mg oral tablet (12 sources)CorticosteroidStart: 02-22-2025 End: 67-39-5349udfc 4 tablets by mouth twice daily at [...] AM EDT 02/22/2025 03/01/2025 ActiveStart: 01-04-2021 End: 84-43-5768avqk 1 tablet by mouth once dailydexAMETHasone (DECADRON) 6 mg tablet TAKE 1 TABLET BY MOUTH EVERY DAY FOR 6 DAYS 0 01/04/2021 06/26/2023 DiscontinuedComment on above:TAKE 1 TABLET BY MOUTH EVERY DAY FOR 6 DAYS dexlansoprazole 60 mg delayed release oral capsule (20 sources)Proton Pump InhibitorStart: 12-22-2019 End: 35-13-7263vkrj 1 capsule by mouth twice dailydexlansoprazole (Dexilant) [address] capsule 1 capsule 1 (one) time each day at the same time. ActiveComment on above:Take 1 capsule by mouth twice daily.Dexlansoprazole (Dexilant) 60 mg capsule,biphase delayed releas (20 sources)Start: 40-69-0170jntv 1 capsule by mouth twice dailyDexlansoprazole (Dexilant) 60 mg capsule,biphase delayed releas Active 60 MG PO Twice daily 2021 12:00amStart: 94-66-4363tpjw 1 capsule by mouth twice daily Dexlansoprazole (Dexilant) 60 mg capsule,biphase delayed releas Active 60 MG PO Twice daily 2021 1:00amdiclofenac sodium 0.01 mg/mg topical gel (20 sources)Nonsteroidal Anti-inflammatory DrugStart: 02-13-2206Whiaw: 38-83-3567Gsdgdhnhrz Sodium (Voltaren Arthritis Pain) 1 % gel Active 4 GM TOPICAL Four times daily February 01, 2025 12:00am apply to single knee, ankle, foot; for foot includes sole/toes/top of footStart: 01-27-2020 End: 22-51-2283xymp 1 tablet by mouth in the morningdiclofenac (Voltaren) 75 MG EC tablet Take 75 mg by mouth in the morning and 75 mg before bedtime. 1 10/01/2021 ActiveComment on above:Take 75 mg by mouth twice daily.docusate sodium 50 mg / sennosides, chcf 8.6 mg oral tablet (17 sources)Start: 86-64-5956whfh 1 tablet by mouth every twelve hours as needed senna-docusate (SENNA-S) 8.6-50 mg per tablet Take 1 tablet by mouth two times a day as needed for constipation. 100 tablet 02/22/2025 10:55 AM EDT 02/22/2025 Activetake 1 tablet by mouth every twelve hoursSenokot S 8.6-50 MG 1 tablet as needed Orally Twice a day Activedoxepin hydrochloride 10 mg oral capsule (20 sources)Tricyclic AntidepressantStart: 97-10-5353twdb 1 capsule by mouth three times daily as needed for anxietytake 1 capsule by mouth every twenty-four hoursDoxepin HCl 10 MG 1 capsule at bedtime Orally Once a day Activedoxycycline hyclate 100 mg oral tablet (20 sources)Tetracycline-class DrugStart: 35-62-3385hnaj 1 tablet by mouth twice dailyDULoxetine 30 mg delayed release oral capsule (20 sources)Serotonin and Norepinephrine Reuptake InhibitorStart: 00-58-1079pumm 1 capsule by mouth once dailyDULoxetine DR (CYMBALTA) 30 mg capsule Indications: Fibromyalgia TAKE 1 CAPSULE BY MOUTH EVERY DAY ALONG WITH THE 60MG CAPSULE TO EQUAL 90MG A DAY 90 capsule 2 05/17/2025 ActiveStart: 05-30-2024 End: 10-31-3834aevr 1 tablet by mouth once dailyDULoxetine (CYMBALTA) 30 mg capsule Indications: Fibromyalgia Take one tab along with the 60mg tab to equal 90mg po qd 30 capsule 6 10/10/2024 ActiveStart: 10-01-2023 End: 18-44-2781cceo 1 capsule by mouth once dailyDULoxetine (CYMBALTA) 60 mg capsule Indications: Fibromyalgia TAKE 1 CAPSULE BY MOUTH EVERY DAY 90 capsule 2 03/06/2025 ActiveStart: 11-03-2022 End: 37-67-8591lifm 1 capsule by mouth once dailyDULoxetine (CYMBALTA) 60 mg capsule Take 1 capsule by mouth once daily. 30 capsule 3 04/13/2023 ActiveStart: 09-29-2022 End: 99-31-1819fqeo 1 capsule by mouth once dailyDULoxetine (CYMBALTA) 30 mg capsule Take 1 capsule by mouth once daily. 30 capsule 3 09/29/2022 06/26/2023 DiscontinuedComment on above:Take 1 capsule by mouth once daily.TAKE 1 CAPSULE BY MOUTH EVERY DAYetodolac 400 mg oral tablet (20 sources)Nonsteroidal Anti-inflammatory DrugStart: 09-09-2024 End: 26-32-4148rbae 1 tablet by mouth every twelve hours for arthritis and arthritisetodolac (LODINE) 400 mg tablet Indications: Inflammatory arthritis TAKE 1 TABLET BY MOUTH TWICE A DAY NEEDED 60 tablet 3 02/27/2025 ActiveStart: 09-28-2023 End: 75-38-8867qsyt 1 tablet by mouth twice daily as neededetodolac (LODINE) 400 mg tablet One tab po bid prn 60 tablet 3 01/27/2024 08/28/2024 Discontinued Comment on above:One tab po bid ysy635 actuat formoterol fumarate 0.005 mg/actuat / mometasone furoate 0.2 mg/actuat metered dose inhaler (20 sources)Corticosteroid, beta2-Adrenergic AgonistStart: 13-50-0792pxba 1 puff(s) by inhalation twice daily End: 50-36-0342ihzatcffgk-formoterol (DULERA) 100-5 mcg/actuation inhaler glycopyrrolate 1 mg oral tablet (20 sources)Start: 90-00-3635kkwe 2 tablets by mouth twice dailyglycopyrrolate (ROBINUL) 1 mg tablet Take 2 mg by mouth twice daily. 02/16/2021 ActiveStart: 10-28-2018 End: 80-36-5777kluz 1 tablet by mouth once dailyStart: 15-92-4984uyxk 3 mg by mouth once dailyGlycopyrrolate Active 3 MG PO Daily October 28, 2018 1:00am Comment on above:Take 2 mg by mouth twice daily.hydroCHLOROthiazide 25 mg oral tablet (20 sources)Thiazide DiureticStart: 09-11-2020 End: 68-25-3833bjrh 1 tablet by mouth once dailyComment on above:Take 25 mg by mouth once daily.hydroxychloroquine sulfate 200 mg oral tablet (20 sources)Antimalarial, Antirheumatic AgentStart: 07-04-2021 End: 12-54-0673efgw 1 tablet by mouth twice dailyComment on above:Take 1 tablet by mouth twice daily.TAKE 1 TABLET BY MOUTH TWICE DAILYTake 1 tablet by mouth two times a day.ipratropium bromide 0.2 mg/ml inhalation solution (20 sources)AnticholinergicStart: 49-90-4456aosk 0.5 mg by inhalation every six hours as neededStart: 39-13-0409xxsq 0.5 mg by inhalation every six hours Ipratropium [place] Active 0.5 MG INHALATION Q6H September 11, 2020 1:00amiv contrast (will be provided with radiology test) (2 sources)Start: 03-02-2025 End: 05-65-4558ttaueu 1 dose intravenously onceiv contrast (will be [...] 1 each 03/02/2025 03/03/2025 ActiveStart: 01-19-2024 End: 05-19-0242xvrcop 1 dose intravenously once, then inject 1 [...] oral tablet (20 sources)Mood Stabilizer, Anti-epileptic AgentStart: 56-98-0631zqmf 3 tablets by mouth once dailyStart: 03-37-2729ljxv 600 mg by mouth once dailyLamotrigine Active 600 MG PO Daily September 12, 2017 1:00amtake 1 tablet by mouth every twenty-four hourslamoTRIgine 200 MG 1 tablet on the tongue and allow to dissolve Orally Once a day ActiveComment on above:TAKE 3 TABLETS EVERY DAYlevothyroxine sodium 0.05 mg oral tablet (20 sources)l-ThyroxineStart: 85-90-5444qacqvrtsbbodb (Synthroid, Levoxyl) 50 MCG tablet 1 (one) time each day at the same time 05/17/2024 Activelisinopril 10 mg oral tablet (20 sources)Angiotensin Converting Enzyme InhibitorStart: 62-98-8090gdff 1 tablet by mouth once dailylubiprostone 0.024 mg oral capsule (20 sources)Chloride Channel ActivatorStart: 35-96-8728rezj 1 capsule by mouth twice dailyStart: 94-83-7561cocp 1 capsule by mouth twice dailyLubiprostone (Amitiza) 24 mcg capsule Active 24 MCG PO Twice daily October 28, 2018 12:00amStart: 25-04-0416zucq 1 capsule by mouth twice dailyLubiprostone (Amitiza) [...] hydrochloride 500 mg oral tablet (20 sources)BiguanideStart: 15-51-2004vvna 2 tablets by mouth twice dailyStart: 67-68-3086ofxf 1000 mg by mouth twice dailyMetformin Active 1000 MG PO Twice daily September 12, 2017 1:00ammetFORMIN (GLUCOPHAGE) 500 mg tablet Active methocarbamol 500 mg oral tablet (20 sources)Muscle RelaxantStart: 03-13-2025 End: 95-71-8883lzto 1 tablet by mouth twice daily as neededmethocarbamol (ROBAXIN) 500 mg tablet Indications: Chronic daily headache TAKE 1 TABLET BY MOUTH TWICE A DAY NEEDED 45 tablet 2 05/18/2025 ActiveStart: 02-22-2025 End: 38-31-3663lkbp 1 tablet by mouth four times daily as needed for pain methocarbamol (ROBAXIN) 500 mg tablet Indications: Chronic daily headache Take 1 tablet by mouth four times a day as needed (muscle spasm, jaw pain). 02/22/2025 03/13/2025 DiscontinuedStart: 10-03-2024 End: 82-88-5702dxow 1 tablet by mouth twice daily as neededmethocarbamol (ROBAXIN) 500 mg tablet Indications: Chronic daily headache TAKE 1 TABLET BY MOUTH TWICE A DAY NEEDED 45 tablet 2 12/29/2024 ActiveStart: 05-26-2024 methocarbamol (Robaxin) 500 MG tablet Take 500 mg by mouth every 12 (twelve) hours if needed 05/26/2024 ActiveStart: 02-05-2024 End: 90-98-8724palb 1 tablet by mouth twice daily as neededmethocarbamol (ROBAXIN) 500 mg tablet Indications: Chronic daily headache Take 1 tablet by mouth two times a day as needed. 45 tablet 2 05/26/2024 ActiveMetoprolol (14 sources)beta-Adrenergic BlockerToprol XL Ljeulx65 hr mirabegron 25 mg extended release oral tablet (20 sources)beta3-Adrenergic AgonistStart: 01-95-9787ojfk 1 tablet by mouth once dailyMyrbetriq 25 MG 24 hr tablet TAKE 1 TABLET BY MOUTH EVERY DAY FOR 30 DAYS 06/23/2024 Activetake 50 mg by mouth once dailymirabegron (MYRBETRIQ) 50 mg Tb24 Take 50 mg by mouth once daily. Activemupirocin 0.02 mg/mg topical ointment (6 sources)RNA Synthetase Inhibitor AntibacterialStart: 02-14-2025 End: 11-54-4208wvmmoxxdp (BACTROBAN) 2 % ointment two times a day for 5 days. Apply 0.5 inch with cotton swab (Q-tip) to each nostril in the morning and evening for 5 days prior to and including day of surgery. 22 g 02/14/2025 02/19/2025 Activenortriptyline 10 mg oral capsule (20 sources)Tricyclic AntidepressantStart: 53-70-3644kmtd 1 capsule by mouth once daily at bedtimenortriptyline (PAMELOR) 10 mg capsule Indications: Chronic daily headache Take 1 capsule by mouth daily at bedtime. 30 capsule 3 03/13/2025 ActiveStart: 01-06-2025 End: 27-05-4489ywjtrdbejcbxr (PAMELOR) 10 mg capsule Indications: Chronic daily headache TAKE 1 CAPSULE AT BEDTIMEFOR 2 WEEKS, THEN 1 CAPSULE EVERY OTHER DAY FOR 1 WEEK THEN STOP 90 capsule 1 01/26/2025 02/14/2025Discontinued (Course of therapy completed)Start: 39-18-6698Rixdlqxtqtrqq 25 mg capsule Active 25 MG PO November 25, 2023 12:00amStart: 06-26-2023 End: 08-64-5752Miofxum on above:Take 1 capsule by mouth daily at bedtime. 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 3 tablet 02/22/2025 10:55 AM EDT 02/22/2025 02/28/2025 ActiveStart: 10-09-2017 End: 10-46-1198ixrs 1 tablet by mouth four times daily as needed for pain Oxycodone 30 mg Tablet Discontinued 30 MG PO Four times daily as needed for Pain October 09, 201712:00am October 28, 2018 11:19amStart: 09-12-2017 End: 89-96-4404muse 1 tablet by mouth twice daily, then take 1 tablet by mouth every twelve hoursOxycodone (Oxycontin) 40 mg tablet extended release 12hr Discontinued 40 MG PO Twice daily 2016 12:00am October 28, 2018 11:19ampioglitazone 15 mg oral tablet (20 sources)Peroxisome Proliferator Receptor alpha Agonist, Peroxisome Proliferator Receptor gamma Agonist, ThiazolidinedioneStart: 41-87-9286ivvl 1 tablet by mouth once dailyStart: 09-12-2017 End: 28-61-9104Viwmldreprmn 15 mg tablet Discontinued September 12, 2017 12:00am October 09, 2017 9:47pmStart: 09-12-2017 End: 16-45-2165Elnokpqdtxkf 15 mg tablet Discontinued TABLET September 12, 2017 1:00am October 09, 2017 10:47pmpredniSONE 20 mg oral tablet (20 sources)Start: 82-76-9763wskovgXBSG (Deltasone) 20 MG tablet Indications: Rib pain on right side Take 3 tabs for 2 days, 2 tabs for 2 days, 1 tab for 2 days, 1/2 tab for 2 days then stop 13 tablet 06/05/2025 ActiveStart: 09-09-2024 End: 97-80-7323ytac 1-2 tablets by mouth once dailypredniSONE (DELTASONE) 5 mg tablet Indications: Inflammatory arthritis TAKE 1 TO 2 TABLETS BY MOUTHEVERY DAY 60 tablet 3 02/27/2025 ActiveStart: 12-11-2022 End: 89-54-5280fgek 1-2 tablets by mouth once dailypredniSONE (DELTASONE) 5 mg tablet TAKE 1 TO 2 TABLETS BY MOUTH EVERY DAY 60 tablet 3 03/25/2024 08/28/2024 DiscontinuedStart: 11-11-2019 End: 55-48-4455chca 2 tablets by mouth once dailyPrednisone 20 mg tablet Discontinued 40 MG PO Daily 10 5 0 November 11, 2019 12:00am September 11, 2020 6:28amStart: 11-11-2019 End: 74-63-1870rqkb 40 mg by mouth once dailyPrednisone Discontinued 40 MG PO Daily 10 5 November 11, 2019 1:00am September 11, 2020 7:28amStart: 12-18-2018 End: 57-75-0178mmyv 1 tablet by mouth once daily at mealtimePrednisone 50 mg tablet Discontinued 50 MG PO Daily 5 5 0 December 17, 2018 11:00pm September 11, 2020 6:28am administer with food or milkpredniSONE (Deltasone) 10 MG tablet 1 tablet with food or milk Orally Three times a day for 5 days and twice a day for 3 days for 8 days ActiveComment on above:1-2 tabs po qdpregabalin 50 mg oral capsule (16 sources)Start: 73-68-5402detf 1 capsule by mouth in the morningpregabalin (Lyrica) 50 MG capsule Take 50 mg by mouth in the morning and 50 mg before bedtime. 06/19/2022 Activetake 1 capsule by mouth every twenty-four hoursLyrica 100 MG 1 capsule Orally Once a day Not-Takingpromethazine hydrochloride 25 mg oral tablet (11 sources)PhenothiazineStart: 56-33-2689nqdh 1 tablet by mouth every eight hours as neededpromethazine (Phenergan) 25 MG tablet Take 25 mg by mouth every 8 (eight) hours if needed. 02/17/2023 ActiveraNITIdine 300 mg oral tablet (20 sources)Histamine-2 Receptor AntagonistStart: 88-24-7929ygwq 1 tablet by mouth once daily as neededroflumilast 0.5 mg oral tablet (20 sources)Phosphodiesterase 4 InhibitorStart: 09-12-2017 End: 50-84-1640ijxl 1 tablet by mouth once dailytake 1 tablet by mouth every twenty-four hoursDaliresp 500 MCG 1 tablet Orally Once a day Activesimvastatin 20 mg oral tablet (20 sources)HMG-CoA Reductase InhibitorStart: 93-86-2583ybwk 1 tablet by mouth once dailyComment on above:Take 20 mg by mouth once daily.sulfamethoxazole 800 mg / trimethoprim 160 mg oral tablet (3 sources)Dihydrofolate Reductase Inhibitor Antibacterial, Sulfonamide AntimicrobialStart: 03-15-2025 End: 54-34-1490xroq 1 tablet by mouth twice dailysulfamethoxazole-trimethoprim (BACTRIM DS) 800-160 mg per tablet Take 1 tablet by mouth two times aday for 5 days. 10 tablet 03/20/2025 03/25/2025 ActivetiZANidine 4 mg oral tablet (20 sources)Central alpha-2 Adrenergic AgonistStart: 06-26-2023 End: 63-75-2319fywg 1 tablet by mouth every eight hours as neededtiZANidine (ZANAFLEX) 4 mg tablet Indications: Chronic daily headache take 1 tablet by mouth every 8 hours as needed 60 tablet 3 02/02/2024 02/05/2024 Discontinued (Side Effects)Start: 28-47-3468ggpz 2 tablets by mouth once daily at bedtime tiZANidine (Zanaflex) 4 MG tablet TAKE 2 TABLETS BY MOUTH DAILY AT BEDTIME 04/11/2022 ActiveComment on above:Take 1 tablet by mouth every 8 hours as needed.topiramate 50 mg oral tablet (20 sources)Start: 73-50-1354guxl 1 tablet by mouth once dailytraMADol hydrochloride 50 mg oral tablet (5 sources)Opioid AgonistStart: 25-81-2948aizt 1 tablet by mouth every four to six hours as needed for paintraMADol HCl 50 MG 1 tablet as needed for pain Orally every 4-6 hours for 7 days prn Jul, Activedivalproex sodium 500 mg delayed release oral tablet (11 sources)Mood Stabilizer, Anti-epileptic AgentStart: 32-14-3770uktd 1 tablet by mouth in the morningdivalproex (Depakote) 500 MG EC tablet Take 500 mg by mouth in the morning and 500 mg before bedtime. 07/18/2022 Activevilazodone hydrochloride 40 mg oral tablet (20 sources)Start: 09-12-2017 End: 97-30-9052quds 1 tablet by mouth once dailyComment on above:Take 40 mg by mouth once daily.Water Pills - (18 sources)Water Pills - as directed Orally Active Completed/Discontinued Medications MedicationDrug Class(es)DatesSig (Normalized)Sig (Original)acetaminophen 325 mg / oxyCODONE hydrochloride 5 mg oral tablet (20 sources)Opioid AgonistStart: 09-18-2021 End: 03-89-1005apcp 1 tablet by mouth every four to six hours as needed for pain Oxycodone-Acetaminophen (Percocet) 5-325 mg tablet Discontinued 1 TAB PO EVERY 4-6 HOURS as needed for pain 10 3 0 September 18, 2021 October 02, 2021 3:22am Acute appendicitis Unspecified acute appendicitisamylase 342698 unt / lipase 48962 unt / protease 89339 unt delayed release oral capsule (20 sources)Start: 09-12-2017 End: 96-28-3743alwg 24691-28681 capsules by mouth three times daily Pdtnsz-Hvlodkcy-Quuezmq (Pork) (Creon) 24,000-76,000 -120,000 unit capsule,delayed release(DR/EC) Discontinued 1 TAB PO Three times daily September 12, 2017 12:00am October 28, 2018 11:18amazithromycin 500 mg oral tablet (20 sources)Macrolide AntimicrobialStart: 10-11-2017 End: 02-15-1259ulti 1 tablet by mouth once dailyAzithromycin 500 mg tablet Discontinued 500 MG PO Daily 5 5 0 October 11, 2017 12:00am October 15, 2017 12:00am October 16, 2017 12:04amcanagliflozin 100 mg oral tablet (20 sources)Sodium-Glucose Cotransporter 2 InhibitorStart: 09-12-2017 End: 12-91-7512wfdt 1 tablet by mouth once dailyCanagliflozin 100 tablet Discontinued 100 MG PO Daily September 12, 2017 12:00am December 18, 2018 12:46pm carisoprodol 350 mg oral tablet (20 sources)Muscle RelaxantStart: 09-12-2017 End: 44-20-2334dfdu 1 tablet by mouth four times daily as needed for pain Carisoprodol 350 mg tablet Discontinued 350 MG PO Four times daily as needed for Pain September 12, 2017 12:00am October 28, 2018 11:18amcephalexin 500 mg oral tablet (20 sources)Cephalosporin AntibacterialStart: 09-18-2021 End: 87-86-4461gmez 1 tablet by mouth four times dailyCephalexin 500 mg tablet Discontinued 500 MG PO Four times daily 40 0 September 18, 2021 12:00am October 10, 2021 11:45amGel-Syn (20 sources)Start: 87-66-7028Kzd-Syn Feb, 2 mLStart: 29-53-1326Fmv-Syn Feb, 2 mLStart: 74-55-4414Rpa-Syn Feb, 2 mLhydrOXYzine pamoate 25 mg oral capsule (20 sources)AntihistamineStart: 09-12-2017 End: 99-42-5123udkl 1 capsule by mouth four times daily as needed for anxiety Hydroxyzine Pamoate 25 mg capsule Discontinued 25 MG PO Four times daily as needed for Anxiety September 12, 2017 12:00am September 11, 2020 6:26am ibuprofen 600 mg oral tablet (20 sources)Nonsteroidal Anti-inflammatory DrugStart: 09-18-2021 End: 35-55-9188mszp 4 tablets by mouth every twenty-four hours for painIbuprofen 600 mg tablet Discontinued 600 MG PO EVERY 4-6 HOURS as needed for pain 20 7 1 September 18, 2021 12:00am October 10, 2021 11:49am do not exceed 4 doses in a 24 hour periodStart: 91-47-3357xxpe 1 tablet by mouth every six hours as needed for paintake 1 tablet by mouth four times dailyibuprofen 800 MG tablet TAKE 1 TABLET FOUR TIMES DAILY Oral for 30 Active2 ml ketorolac tromethamine 30 mg/ml cartridge (8 sources)Nonsteroidal Anti-inflammatory Drug, Cyclooxygenase InhibitorStart: 06-05-2025 End: 79-37-938335 mg, Intramuscular, Once, On Thu06/05/25 at 1830, For 1 dose, Max daily dose: 120 mg. Max duration: 5 days totalStart: 06-05-2025 End: 34-88-688099 mg, Intramuscular, Once, On Thu06/05/25 at 1830, For 1 dose, Max daily dose: 120 mg. Max duration: 5 days totalStart: 06-05-2025 End: 62-70-9076ccxyhxwqg (Toradol) injection 60 mgStart: 06-05-2025 End: 80-10-6430npubnygfg (Toradol) injection 60 mgStart: 05-23-2025 End: 22-11-549671 mg, Intramuscular, Once, On Thu05/23/25 at 1400, For 1 dose, Max daily dose: 120 mg. Max duration: 5 days totalStart: 05-23-2025 End: 79-96-8971rvsrquwts (Toradol) injection 60 mgStart: 05-23-2025 End: 59-67-893631 mg, Intramuscular, Once, On Thu05/23/25 at 1400, For 1 dose, Max daily dose: 120 mg. Max duration: 5 days totalStart: 05-23-2025 End: 20-74-6297ugxnuhqig (Toradol) injection 60 mglevETIRAcetam 1000 mg oral tablet (3 sources)Start: 02-22-2025 End: 90-75-8200nrmf 1 tablet by mouth twice dailylevETIRAcetam (KEPPRA) 1,000 mg tablet Take 1 tablet by mouth two times a day for 12 doses. 12 tablet 02/22/2025 10:55 AM EDT 02/22/2025 03/02/2025 Discontinued (Course of therapy completed) levoFLOXacin 500 mg oral tablet (10 sources)Quinolone AntimicrobialStart: 01-04-2021 End: 51-53-1859bagi 1 tablet by mouth once dailylevoFLOXacin (LEVAQUIN) 500 mg tablet Take 500 mg by mouth once daily. 0 01/04/2021 06/26/2023 Discontinued Comment on above:Take 500 mg by mouth once daily.lurasidone hydrochloride 120 mg oral tablet (20 sources)Atypical AntipsychoticStart: 09-12-2017 End: 60-70-4257gxge 1 tablet by mouth once dailyLurasidone (Latuda) 120 mg tablet Discontinued 120 MG PO Daily September 12, 2017 12:00am 2018 11:18ammilnacipran hydrochloride 100 mg oral tablet (20 sources)Serotonin and Norepinephrine Reuptake InhibitorStart: 02-16-2021 End: 73-00-0557arrl 1 tablet by mouth twice dailySAVELLA 100 mg tab Take 100 mg by mouth twice daily. 0 02/16/2021 06/30/2023 Discontinued (Course of therapy completed)Start: 79-01-1076tbyh 1 tablet by mouth twice dailyComment on above: Take 100 mg by mouth twice daily.pantoprazole 40 mg delayed release oral tablet (20 sources)Proton Pump InhibitorStart: 09-12-2017 End: 16-35-1109ymgv 1 tablet by mouth twice dailyPantoprazole 40 tablet,delayed release (DR/EC) Discontinued 40 MG PO Twice daily September 12, 2017 12:00am September 11, 2020 6:28amphentermine hydrochloride 37.5 mg oral tablet (11 sources)Sympathomimetic Amine AnorecticStart: 01-25-2021 End: 97-98-6584nvky 1 tablet by mouth once dailyPhentermine HCl 37.5 mg tablet Take 37.5 mg by mouth once daily. 0 01/25/2021 06/30/2023 Discontinued (Course of therapy completed)Comment on above:Take 37.5 mg by mouth once daily. sucralfate 1000 mg oral tablet (20 sources)Aluminum ComplexStart: 10-28-2018 End: 84-86-9843agpe 1 tablet by mouth at bedtimeSucralfate (Carafate) 1 gram tablet Discontinued 1 GM PO Before meals and at bedtime 60 0 October 02, 2021 12:00am October 10, 2021 11:59amCarafate 1 GM 1 tablet on an empty stomach Orally PRN ActiveTheraputic Injection (20 sources)Start: 03-80-7253Fddclbenxw Injection Jul, 168 UStart: 17-68-3859Tfxitapxls Injection Jul, 380 mgtriamcinolone acetonide 40 mg/ml injectable suspension (20 sources)CorticosteroidStart: 27-09-3298Jugbeex-40 January, 20 mgStart: 28-40-5297Jhlqvyu-40 Sep, 30 mgStart: 84-56-4557Uioozjz-40 Mar, 40 mgStart: 69-03-2783Mmhxjuj -40 mg Nov, 40 mgStart: 78-06-4111Ghaoiul -40 mg Aug, 20 mgStart: 66-40-5707Dynavai -40 mg Jul, 40 mg Start: 27-47-7487Qskorpt -40 mg May, 20 mgStart: 04-33-9282Yyaxdwf -40 mg Mar, 40 mgStart: 62-44-9902Kyhkoxu -40 mg Nov, 40 mgStart: 53-12-7847Wilksdw -40 mg January, 40 mgStart: 12-28-2089Mdzsafb -40 mg Jun, 40 mgStart: 39-71-3348Agqwvei -40 mg Mar, 40 mgStart: 95-02-7500Xwefdrr -40 mg Nov, Problems Active Problems Problem ClassificationProblemDateDocumented DateEpisodic/ChronicAbdominal pain (20 sources)Upper abdominal pain; Translations: [Upper abdominal pain, unspecified]52-90-9485IsqmzdetEtjmsgk disorders (20 sources)Anxiety; Translations: [Anxiety disorder, unspecified]Onset: 775990-44-5207ReocjnlIlkvletiyaln and other appendiceal conditions (20 sources)Acute appendicitis; Translations: [Unspecified acute appendicitis] 59-21-5288SrzrxrzoOzdvbtoy (11 sources)Nuclear senile cataract; Translations: [Age-related nuclear cataract, unspecified eye]Onset: 026582-13-9729VqvlclvUerhlse obstructive pulmonary disease and bronchiectasis (20 sources)Acute exacerbation of chronic obstructive airways disease; Translations: [Chronic obstructive lung disease]Onset: ChronicConditions associated with dizziness or vertigo (6 sources)Dizziness and giddiness; Translations: [Dizziness and giddiness] Onset: 365735-71-7270DwhnrvkmZnlmojbmcakcu and procreative management (4 sources)Encounter for surveillance of injectable contraceptive; Translations: [Encounter for Depo-Provera contraception]EpisodicDiabetes mellitus with complications (20 sources)Secondary diabetes mellitus; Translations: [Other specified diabetes mellitus with diabetic autonomic (poly)neuropathy]ChronicDiabetes mellitus without complication (20 sources)Diabetes mellitus type 2 without retinopathy; Translations: [Type 2 diabetes mellitus without complications]Onset: hronic Disorders of lipid metabolism (20 sources)Mixed hyperlipidemia; Translations: [Mixed hyperlipidemia]Onset: 558246-97-6286WuaurarFlbdqjuod of teeth and jaw (2 sources)Infection of tooth; Translations: [Periapical abscess without sinus] 58-29-4560CcadpltkW Codes: Natural/environment (20 sources)Dog bite - wound; Translations: [Bitten by dog, initial encounter] 86-61-3993KwdlcgobHbbykvsjed disorders (20 sources)Gastroesophageal reflux disease; Translations: [Gastro-esophageal reflux disease without esophagitis]Onset: 224531-44-4395WxgdyjpMcpsodoed and duodenitis (19 sources)Chronic superficial gastritis; Translations: [Chronic superficial gastritis without bleeding]ChronicGastritis and duodenitis (20 sources)Gastritis; Translations: [Gastritis, unspecified, without bleeding] 87-72-1769AvrlfjthJucxvfbspluskccz hemorrhage (20 sources)Rectal hemorrhage; Translations: [Hemorrhage of anus and rectum] 52-65-3958PfvuxknwJrjixmge (11 sources)Open angle with borderline findings, low risk, bilateral; Translations: [Open angle with borderlinefindings, low risk]Onset: 03-24-2023 90-16-5116QzkcxqbBlokwncd; including migraine (20 sources)Intractable chronic tension headache; Translations: [Chronic tension-type headache, intractable]Onset: 948751-69-8621VtpfffmIpeqgrhi; including migraine (11 sources)Medication overuse headache; Translations: [Drug-induced headache, not elsewhere classified, not intractable]05-08-1365MtohgmwpRfttgcga; including migraine (1 source)Headache; including migraine; Translations: [Chronic daily headache] Onset: 01-94-3626Afqyk valve disorders (1 source)Cardiac murmur, unspecified; Translations: [Cardiac murmur, unspecified]Onset: 42-92-4220CynhfubtEqbe disorders (1 source)Mood disorders; Translations: [Depression, unspecified depression type]Onset: 69-06-0745Devkhx and vomiting (20 sources)Nausea; Translations: [Nausea]EpisodicNonspecific chest pain (1 source)Other chest pain; Translations: [Other chest pain]Onset: 06-19-2025 EpisodicOsteoarthritis (20 sources)Arthritis; Translations: [Unspecified osteoarthritis, unspecified site]Onset: 06-05-2021 Resolved: 74-64-3321FwyjdueRtdji aftercare (3 sources)Patient encounter status; Translations: [Encounter for therapeutic drug level monitoring]69-56-7642JspxryooPmfta aftercare (1 source)Surgical follow-up; Translations: [Encounter for follow-up examination after completed treatment for conditions other than malignant neoplasm] 39-83-2525AiproskeVwbjy and unspecified benign neoplasm (19 sources)Neoplasm of meninges; Translations: [Benign neoplasm of meninges, unspecified]Onset: 873109-95-1880VpnfxsbFhqfz and unspecified benign neoplasm (20 sources)Intracranial meningioma; Translations: [Benign neoplasm of cerebral meninges]Onset: 896132-18-0977EbcukmzJlbpz and unspecified benign neoplasm (4 sources)Benign neoplasm of meninges; Translations: [Benign neoplasm of meninges, unspecified]55-66-1567BrbkjztAgtzw and unspecified benign neoplasm (3 sources)Benign neoplasm of meninges, unspecified; Translations: [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)]Onset: 04-48-6081Uptajlv Other and unspecified benign neoplasm (1 source)Benign neoplasm of cerebral meninges; Translations: [Intracranial meningioma (HCC)]Onset: 50-40-1342UkdaokuYhohi bone disease and musculoskeletal deformities (19 sources)Aseptic necrosis of carpal bone; Translations: [Other osteonecrosis of right carpus]ChronicOther bone disease and musculoskeletal deformities (19 sources)Kienbock's disease of adults; 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]ChronicOther bone disease and musculoskeletal deformities (20 sources)Osteochondritis of the carpal lunate; Translations: [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], right hand]03-29-1254LtxolavSgekj bone disease and musculoskeletal deformities (19 sources)Progressive avascular necrosis of lunate; 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]ChronicOther bone disease and musculoskeletal deformities (20 sources)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], right hand; Translations: [Juvenile osteochondrosis of upper extremity]Onset: 06-18-2021 Resolved: 37-18-4613BhrpwshCyjro connective tissue disease (2 sources)Muscle pain; Translations: [Myalgia, unspecified site]EpisodicOther connective tissue disease (19 sources)Tendinitis of wrist; Translations: [Other enthesopathies, not elsewhere classified]EpisodicOther connective tissue disease (19 sources)Radial styloid tenosynovitis; Translations: [Radial styloid tenosynovitis [de Quervain]]EpisodicOther connective tissue disease (20 sources)Supraspinatus tear; Translations: [Unspecified rotator cuff tear or rupture of right shoulder, not specified as traumatic]69-82-7830VftnfyutFgyvi connective tissue disease (6 sources)Unspecified rotator cuff tear or rupture of right shoulder, not specified as traumatic; Translations: [Tear of right supraspinatus tendon M75.101]Onset: 09-22-2021 Resolved: 28-86-0795BfznvrsdFaqio connective tissue disease (1 source)Bicipital tendinitis, left shoulderEpisodicOther connective tissue disease (1 source)Other specified disorders of tendon, right shoulderEpisodicOther connective tissue disease (20 sources)Biceps tendinitis; Translations: [Bicipital tendinitis, unspecified shoulder]15-54-2961VegszrvyWehpl connective tissue disease (3 sources)Bicipital tendinitis, unspecified shoulder; Translations: [Bicipital tenosynovitis]77-97-3591RhsorifeBjrpv connective tissue disease (18 sources)Bursitis of left shoulder; Translations: [Bursitis of left shoulder] 03-83-6519LtlkbbxfJkcna connective tissue disease (5 sources)Bursitis of left shoulder; Translations: [Disorders of bursae and tendons in shoulder region, unspecified]40-00-6990DavxgwiiVvtdz disorders of stomach and duodenum (20 sources)Disorder of function of stomach; Translations: [Disease of stomach and duodenum, unspecified]91-78-3125PaxvvrpbWregn ear and sense organ disorders (11 sources)Otitis externa; Translations: [Unspecified otitis externa, unspecified ear]Onset: 830291-54-7241JtzlsiyCegre endocrine disorders (19 sources)Disorder of pancreatic internal secretion; 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, unspecified]ChronicOther fractures (8 sources)Fracture of rib; Translations: [Fracture of one rib, unspecified side, initial encounter for closedfracture]61-03-7488YlbqoepxDqxev fractures (1 source)Fracture of one rib, unspecified side, initial encounter for closed fracture; Translations: [Fracture of one rib, unspecified side, initial encounter for closed fracture]Onset: 10-09-9258ZtgaaedaUvlpn gastrointestinal disorders (19 sources)Constipation; Translations: [Constipation, unspecified]EpisodicOther gastrointestinal disorders (1 source)Abdominal distension (gaseous)EpisodicOther gastrointestinal disorders (1 source)EructationEpisodicOther gastrointestinal disorders (1 source)Diarrhea, unspecifiedEpisodicOther gastrointestinal disorders (1 source)Constipation, unspecifiedEpisodicOther lower respiratory disease (1 source)Pleurodynia; Translations: [Pleurodynia]Onset: 08-23-4831UjegjgovMrxny nervous system disorders (19 sources)Carpal tunnel syndrome; Translations: [Carpal tunnel syndrome, right upper limb]ChronicOther nervous system disorders (19 sources)Cubital tunnel syndrome; Translations: [Lesion of ulnar nerve, right upper limb]ChronicOther nervous system disorders (19 sources)Bilateral carpal tunnel syndrome; Translations: [Carpal tunnel syndrome, bilateral upper limbs]ChronicOther nervous system disorders (1 source)Carpal tunnel syndrome, right upper limbOnset: 08-12-2021 Resolved: 83-08-6762WekihdrYlbnz nervous system disorders (1 source)Mass lesion of brain; Translations: [Other specified disorders of brain]97-24-9078BsbhcznVbykk nervous system disorders (1 source)Compression of brain; Translations: [Neoplasm causing mass effect and brain compression on adjacentstructures (HCC)]Onset: 28-71-1574KhxlhdmUkygx nervous system disorders (20 sources)Pain in limb; Translations: [Other acute postprocedural pain] 54-28-9906EazgeeiyTnusq non-traumatic joint disorders (1 source)Other specified arthritis, unspecified site; Translations: [Inflammatory arthritis]Onset: 70-75-4866VkgezaqCkmkc non-traumatic joint disorders (20 sources)Pain of right wrist; Translations: [Pain in right wrist]03-22-2025 EpisodicOther non-traumatic joint disorders (20 sources)Pain in right shoulder; Translations: [Acute pain of right shoulder] Onset: 06-05-2021 Resolved: 98-96-8434LzvimhmkAxmmx non-traumatic joint disorders (16 sources)Pain in wrist; Translations: [Pain in right wrist]53-54-3538Loortkgz Other nutritional; endocrine; and metabolic disorders (20 sources)Body mass index 30+ - obesity; Translations: [Body mass index (BMI) 33.0-33.9, adult]ChronicOther nutritional; endocrine; and metabolic disorders (20 sources)Severe obesity; Translations: [Class 3 severe obesity due to excess calories with serious comorbidity and body mass index (BMI) of 40.0 to 44.9 in adult]Onset: 881695-86-9918GigkweeFoxyt nutritional; endocrine; and metabolic disorders (4 sources)Body mass index (BMI) 40.0-44.9, adult; Translations: [Class 3 severe obesity due to excess calories with serious comorbidity and body mass index (BMI) of 40.0 to 44.9 in adult]Onset: 977882-95-0847TpwzfxeDpzvs upper respiratory infections (2 sources)Recurrent sinusitis; Translations: [Chronic sinusitis, unspecified] 81-02-2841OgqjrnyRosofkil codes; unclassified (20 sources)Obstructive sleep apnea syndrome; Translations: [Obstructive sleep apnea (adult) (pediatric)]Onset: 342324-65-6796GskporxIaxofmqt codes; unclassified (1 source)Obstructive sleep apnea (adult) (pediatric); Translations: [MAREK (obstructive sleep apnea)]Onset: 65-29-6025LozwcenFmlidolw codes; unclassified (2 sources)History of craniotomy; Translations: [Other specified postprocedural states]76-26-2978NwmibvvwQsqhfpqy codes; unclassified (1 source)Postprocedural state finding; Translations: [Other specified postprocedural states]91-50-0974NafqneoxQjfw and subcutaneous tissue infections (20 sources)Cellulitis of forearm; Translations: [Cellulitis of unspecified part of limb]77-01-0099VzllxykfIofziikezbz; intervertebral disc disorders; other back problems (1 source)Radiculopathy, thoracic region; Translations: [Radiculopathy, thoracic region]Onset: 01-36-1408AkynedffWhxgyxl and strains (10 sources)Strain of muscle, fascia and tendon of other parts of biceps, right arm, initial encounter; Translations: [Strain of other muscles, fascia and tendons at shoulder and upper arm level, left arm, initial encounter]Onset: 06-05-2021 Resolved: 17-45-7976LhtyqsfaMnpykpv disorders (20 sources)Hypothyroidism; Translations: [Hypothyroidism, unspecified]Onset: 402765-28-2277PsddrzzVsplrydgkdvh (1 source)Class 3 severe obesity due to excess calories with serious comorbidity and body mass index (BMI) of40.0 to 44.9 in adult; Translations: [Class 3 severe obesity due to excess calories with serious comorbidity and body mass index (BMI) of 40.0 to 44.9 in adult]Onset: 02-14-2025 Past or Other Problems Problem ClassificationProblemDateDocumented DateEpisodic/ChronicBlindness and vision defects (20 sources)Bilateral myopia of eyes; Translations: [Myopia, bilateral]Onset: 815831-11-6043InigirvgNgvnseswuy and other anemia (1 source)Iron deficiency anemia, unspecified; Translations: [Iron deficiency anemia, unspecified]Onset: 87-09-1722PuvnqmotBmxh disorders (20 sources)Depressive disorder; Translations: [Depression] Resolved: 000674-76-8430RtrvnupYqjasamqe of unspecified nature or uncertain behavior (17 sources)Neoplasm of brain; Translations: [Neoplasm of unspecified behavior of unspecified site]Onset: 02-21-2025 Resolved: 049192-12-0430KcuhjcxmNdjpj aftercare (1 source)Encounter for follow-up examination after completed treatment for conditions other than malignant neoplasm; Translations: [Postop check]Onset: 68-51-8295QqgljcbdYzaup aftercare (1 source)Encounter for therapeutic drug level monitoring; Translations: [Encounter for medication monitoring]Onset: 84-36-3815ZfzmhwbxXtnvc connective tissue disease (1 source)Enthesopathy, unspecified; Translations: [Tendonitis M77.9]Onset: 06-05-2021 Resolved: 32-54-0563BmwjliqgHdgws connective tissue disease (2 sources)Radial styloid tenosynovitis [de Quervain]; Translations: [De Quervain's tenosynovitis, right M65.4]Onset: 06-05-2021 Resolved: 53-60-5135WjlxnexhTrdah connective tissue disease (1 source)Synovitis and tenosynovitis, unspecified; Translations: [Tenosynovitis M65.9]Onset: 06-05-2021 Resolved: 38-33-4092LublvolqXisng connective tissue disease (20 sources)Fibromyalgia; Translations: [Fibromyalgia]Onset: 96-65-5369Mnhzpqhs Other connective tissue disease (1 source)Fibromyalgia; Translations: [Fibromyalgia]Onset: 86-41-8164Lwiubezg Other diseases of kidney and ureters (1 source)Disorder of kidney and ureter, unspecified; Translations: [Disorder of kidney and ureter, unspecified]Onset: 16-98-7438CzghuxlxIekrz gastrointestinal disorders (11 sources)Abdominal bloating; Translations: [Abdominal distension (gaseous)] Onset: 221933-46-8861DnmwgswmJwuap lower respiratory disease (13 sources)Rib pain; Translations: [Pleurodynia]Onset: 130631-83-8970 EpisodicOther nervous system disorders (16 sources)Cerebral edema; Translations: [Cerebral edema]Onset: 02-21-2025 Resolved: 405719-32-8011JctdzmdLoyqf nervous system disorders (16 sources)Postoperative pain ; Translations: [Other acute postprocedural pain] Onset: 02-22-2025 Resolved: 762001-40-8525CqafdielVoqxq non-traumatic joint disorders (20 sources)Pain in left shoulder; Translations: [Acute pain of left shoulder] Onset: 01-20-2022 Resolved: 04-62-8500MhmapvlzKgzzs non-traumatic joint disorders (19 sources)Pain in right wrist; Translations: [Pain in joint, forearm]Onset: 01-24-2022 Resolved: 11-82-9610TnbcimtzMzowz screening for suspected conditions (not mental disorders or infectious disease) (4 sources)Encounter for screening for dental disorders; Translations: [Encounter for screening mammogram for malignant neoplasm of breast]Onset: 221031-65-2225HgupshlxHlttrpcu codes; unclassified (7 sources)Other specified postprocedural states; Translations: [S/P craniotomy] Onset: 11-20-2021 Resolved: 00-80-2508RvqrfjgqGusyraqo codes; unclassified (16 sources)At risk of epileptic fits; Translations: [Other specified personal risk factors, not elsewhere classified]Onset: 02-21-2025 Resolved: 986582-72-7863FvbndavwHvcvauiowwaa (1 source)Patient encounter uwkllz93-69-6208Eskxsztgorml (1 source)pa (chief complaint)Onset: 06-27-2025 Results Test NameValueInterpretationReference RangeFacilityECH echo transthoracicon 70-13-9575LFM echo transthoracicC[facility] [place] [address] [place] [address] Echocardiogram Signed Patient: Kourtney Novak MR#: [id number] : 1975 Acct:[id number] Age/Sex: 49 / F ADM Date: 07/17/25 Loc: Room: Type: [facility] Attending Dr: Jesus Gonzalez MD Ordering Provider: Jesus Gonzalez MD Date of Service: 07/17/25/ ECH/ECH echo transthoracic: MURMUR Copies to: MD Kierra Booker MD Weight: 250 lb Performed By: JAME Victor BSA: 2.2 m2 BP: 146/79 mmHg HR: 80 Reason For Study: MURMUR History: DM,Murmur Interpretation Summary Ejection Fraction = 60-65%. Mild concentric left ventricular hypertrophy. A variety of Doppler measurements indicate impaired left ventricular relaxation, which is associated with grade I/IV or mild diastolic dysfunction. Mild valvular aortic stenosis. The aortic valve maximum pressure gradient is 23 mmHg. The aortic valve mean gradient is 12 mmHg. There is trace mitral regurgitation. There is trace tricuspid regurgitation. Right ventricular systolic pressure is elevated at 30-40mmHg. Right ventricular systolic pressure is consistent with mild pulmonary hypertension. There is no comparison study available. Procedure/Quality: A two-dimensional transthoracic echocardiogram with color flow and Doppler was performed. The study was technically good in quality. Left Ventricle: The left ventricular size is normal. Mild concentric left ventricular hypertrophy. Ejection Fraction = 60-65%. A variety of Doppler measurements indicate impaired left ventricular relaxation, which is associated with grade I/IV or mild diastolic dysfunction. The left ventricular wall motion is normal. Left Atrium: The left atrium appears normal in size. The atrial septum appears normal. Right Atrium: The right atrium appears normal in size. Right Ventricle: The right ventricular size, thickness and function are normal. Aortic Valve: The aortic valve is mildly calcified. Mild valvular aortic stenosis. The aortic valve maximum pressure gradient is 23 mmHg. The aortic valve mean gradient is 12 mmHg. No aortic regurgitation is present. Mitral Valve: The mitral valve is mildly sclerotic. There is trace mitral regurgitation. Tricuspid Valve: The tricuspid valve is normal in structure and function. There is trace tricuspid regurgitation. Right ventricular systolic pressure is elevated at 30-40mmHg. Right ventricular systolic pressure is consistent with mild pulmonary hypertension. Pulmonic Valve: The pulmonic valve is normal in structure and function. Arteries: The aortic root is normal size. Pericardium/Pleura: No pericardial effusion seen. There is no pleural effusion. IVC/Hepatic Veins: The inferior vena cava is normal in size, with a normal collapsibility index. Measurements with Normals IVSd: 1.3 cm (0.7-1.1 cm)LVIDd: 4.5 cm (3.7-5.4 cm) LVPWd: 1.3 cm (0.7-1.1 cm)LVIDs: 3.1 cm (2.3-3.6 cm) LA dimension: 3.5 cm (2.3-4.0 cm)Ao root diam: 2.8 cm(2.0-3.6 cm) asc Aorta Diam: 2.8 cm(2.1-3.4cm) Doppler with Normals RVSP(TR): 34.8 mmHg (18-35mmHg) LV V1 max: 123.0 cm/sec (0.7-1.7m/s)MV E max tana: 117.0 cm/sec(0.8-1.3m/s) MV A max tana: 113.8 cm/sec(0.0-0.0m/s) MV E/A: 1.0 (<1.5) MMode/2D Measurements Calculations TAPSE: 3.0 cm FS: 30.2 % Ao root area: LVOT diam: 1.8 cm RV S Tana: EDV(Teich): 6.2 cm2 LVOT area: 2.4 cm2 10.6 cm/sec 92.6 ml ESV(Teich): 39.2 ml EF(Teich): 57.7 % __ LVLd ap4: 7.3 cm SV(MOD-sp4): LAV(MOD-sp4): LA A2 area: 19.5 cm2 EDV(MOD-sp4): 45.8 ml 48.8 ml 71.0 ml LAV(MOD-sp2): LA A4 area: 18.0 cm2 LVLs ap4: 6.3 cm 62.1 ml LA length (vol): ESV(MOD-sp4): 5.2 cm 25.2 ml LA vol: 57.6 ml EF(MOD-sp4): 64.5 % LA vol index: 26.8 ml/m2 Doppler Measurements Calculations MV dec time: MV V2 max: E/E' lat: 8.8 MV dec slope: 0.28 sec 118.7 cm/sec E/E' med: 14.3 MV max P.6 mmHg 413.7 cm/sec2 MV V2 mean: 77.2 cm/sec MV mean P.7 mmHg MV V2 VTI: 34.2 cm MVA(VTI): 1.9 cm2 __ Ao V2 max: LV V1 max PG: TV max PG: TR max tana: 244.3 cm/sec 6.1 mmHg 30.0 mmHg 272.8 cm/sec Ao max PG: LV V1 mean PG: TR max P.8 mmHg 23.9 mmHg 3.2 mmHg RAP systole: 5.0 mmHg Ao mean PG: LV V1 mean: 12.9 mmHg 82.6 cm/sec Ao V2 mean: LV V1 VTI: 27.5 cm 169.3 cm/sec Ao V2 VTI: 53.2 cm AISHWARYA(I,D): 1.2 cm2 AISHWARYA(V,D): 1.2 cm2 Transcribed By: MYRIAM Performed At: 07/17/25 1353 Signed By: Kierra Waldrop MD 07/17/25 1505[facility] Physician [facility] MadisonX-ray reportOrdered By: George Gray on 18-88-8143Wuulw reportC[facility] [address] [place] [address] XRay Report Signed Patient: Kourtney Novak MR#: [id number] : 1975 Acct:[id number] Age/Sex: 49 / F ADM Date: 5 [place] [facility] [place]: Type: [facility] Attending Dr: Elyssa Gomes MD Copies [...] Gray M.D. 07/12/2025 4:59 PM Dictation Location: [place] [address] Transcribed By: [facility] 07/12/251658 Dictated By: Geroge Gray DO 07/12/251654 Signed By: 07/12/251658 [facility] RehabilitationXR wrist RT min 3V*on 72-15-2720ZW wrist RT min 3V*[facility] [address] [place] [address] XRay Report Signed Patient: Kourtney Novak MR#: [id number] : 1975 Acct:[id number] Age/Sex: 49 / F ADM Date: 07/12/25 [place] [facility] [place]: Type: [facility] CLI Attending Dr: Elyssa Gomes MD Copies to: [...] Gray M.D. 07/12/2025 4:59 PM Dictation Location: [place] [address] Transcribed By: [facility] 07/12/251658 Dictated By: George Gray DO 07/12/251654 Signed By: 07/12/251658[facility] Physician GroupSAINT ELIZABETH FLORENCE W Auto Differential panel (Bld)on 67-55-8516Hzjsqsbna (Bld) [#/Vol]0.1 10*3/uLNOMS HealthcareBasophils/100 WBC (Bld)1 %Not Estab.NOMS HealthcareEosinophils (Bld) [#/Vol]0.0 10*3/uLNOMS HealthcareEosinophils/100 WBC (Bld)0 %Not Estab.NOM HealthcareErythrocyte distribution width (RBC) [Ratio]13.3 %11.7 - 15.4 %NOMS HealthcareHematocrit (Bld) [Volume fraction]38.7 %34.0 - 46.6 %NOM HealthcareHemoglobin (Bld) [Mass/Vol]12.7 g/dL11.1 - 15.9 g/dLNOAR HealthcareImmature granulocytes (Bld) [#/Vol]0.1 10*3/uLNOMS HealthcareImmature granulocytes/100 WBC (Bld)1 %Not Estab.NOM HealthcareInterpretation and review of laboratory resultsAbnormalNOAR HealthcareLymphocytes (Bld) [#/Vol]1.8 10*3/uLNOMS HealthcareLymphocytes/100 WBC (Bld)19 %Not Estab.NOMWashington County Memorial HospitalH (RBC) [Entitic mass]28.6 pg26.6 - 33.0 pgNOAR HealthcareHC (RBC) [Mass/Vol]32.8 g/dL31.5 - 35.7 g/dLNOAR Healthcare MCV (RBC) [Entitic vol]87 fL79 - 97 fLNOAR HealthcareMonocytes (Bld) [#/Vol]0.6 10*3/uLNOMS HealthcareMonocytes/100 WBC (Bld)6 %Not Estab.[facility] Neutrophils (Bld) [#/Vol]7.2 10*3/uLHighNOMS HealthcareNeutrophils/100 WBC (Bld) 73 %Not Estab.NOM HealthcarePlatelets (Bld) [#/Vol]514 10*3/uLHighNOMS HealthcareRBC (Bld) [#/Vol]4.44 10*6/uLNOMS HealthcareWBC (Bld) [#/Vol]9.7 10*3/uLNOMS HealthcareHIV-2 antigenon 26-41-9327HHO 1+2 Ab+HIV1 p24 Ag IA Ql Non-ReactiveNon ReactiveNOAR HealthcareComment on above:HIV-1/HIV-2 antibodies and HIV-1 p24 antigen were NOT detected. There is no laboratory evidence of HIV infection. HIV Negative IgAon 21-78-8159YvJ [Mass/Vol]232 mg/dL87 - 352 mg/dLNOAR HealthcareIgGon 02-44-9841RfY [Mass/Vol]594 mg/dL586 - 1602 mg/dLNOAR HealthcareIgMon 07-11-2025 IgM [Mass/Vol]108 mg/dL26 - 217 mg/dLParkland Health CenterNo Panel Informationon 80-20-3031Rxbuwpwtr at: [address] [place] [id number] Boat Tender: Maxim Daniel PhD, Phone: [phone] Healthcare Magnetic resonance imaging reportOrdered By: Perry Milton on 05-66-7878Selps reportCLEVELAND CLIN[facility] [place] [address] [place], [place] [address] MRI Report Signed Patient: Kourtney Novak MR#: [id number] : 1975 Acct:[id number] Age/Sex: 49 / F ADM Date: 5 Loc: MR Room: Type: [facility] CLI Attending Dr: Chantal LAMBERT Copies to: FAUSTO Salvador~ Ordering Provider: FAUSTO Salvador Date of Service: 06/27/25 MR/MR thoracic spine wo con: M54.14 ([id number]) XR/XR pre/post mri xray: M54.14 MR thoracic [...] No spinal canal narrowing. Impression dictated by: Prery Milton M.D. 06/27/2025 11:26 PM Dictation Location: [place] [address] Transcribed By: [facility] 06/27/252325 Dictated By: Perry Milton II, MD 06/27/252320 Signed By: 06/27/252325 [facility] Work Phone: xr pre/post mri xrayon 68-92-9324MO pre/post mri xray [facility] [place] [address] MRI Report Signed Patient: Kourtney Novak MR#: [id number] : 1975 Acct:[id number] Age/Sex: 49 / F ADM Date: 06/27/25 Loc: Room: Type: [facility] Attending Dr: Chantal LAMBERT Copies to: FAUSTO Salvador Ordering Provider: FAUSTO Salvador Date of Service: 06/27/25 MR/MR thoracic spine wo con: M54.14 ([id number]) XR/XR pre/post mri xray: M54.14 MR thoracic [...] Milton M.D. 06/27/2025 11:26 PM Dictation Location: [place] [address] Transcribed By: [facility] 06/27/25 6780 Dictated By: Perry Milton II, MD 06/27/252320 Signed By: 06/27/25 232[facility] Physician GroupCNOVleyla 97-78-5752HTPQWbqyad Visit (ISSA) MARINOKOURTNEY ([id number]) 1975 F Date Time Provider Department 06/22/25 2:20 PM ZULEMA WOOD During your visit today, we recorded the following information about you: Pulse Blood pressure Weight Height 86/minute 138/77 113.4 kg 1.651 m Zulema Wood MD 06/22/2025 2:38 PM Signed Kourtney Leoneric is a 47 year [...] light. Conjunctivae are noninjected. (more content not included)...NormalSy[facility] chest wo [facility] careon 97-40-5652IK chest wo [facility] [place] [address] CT Scan Report Signed Patient: Kourtney Noavk MR#: [id number] : 1975 Acct:[id number] Age/Sex: 49 / F ADM Date: 06/19/25 Loc: CT Room: Type: [facility] Attending Dr: Jesus Gonzalez MD Copies [...] Hoffmann M.D. 06/19/2025 11:19 PM Dictation Location: [place] [address] Transcribed By: GRACIE 06/19/252318 Dictated By: Lincoln Hoffmann MD 06/19/252314 Signed By: 06/19/252318[facility] Physician GroupUS thyroidon 36-35-6741KV [facility] [place] [address] [place] [address] Ultrasound Report Signed Patient: Kourtney Novak MR#: [id number] : 1975 Acct:[id number] Age/Sex: 49 / F ADM Date: 06/13/25 Loc: Room: Type: [facility] Attending Dr: Jesus Gonzalez MD Ordering [...] Gray M.D. 06/13/2025 10:29 PM Dictation Location: [place] [address] Tech: Tana Chahal Transcribed By: GRACIE 06/13/252228 Dictated By: George Gray DO 06/13/252225 Signed By: 06/13/252228[facility] Physician GroupXR Ribs Views and Chest [...] clips projecting over the right upper hemithorax. Sylvester Goodman MD - 06/06/2025 EXAMINATION/TECHNIQUE: XR RIBS 2 [...] fracture. ELECTRONICALLY SIGNED BY: Sylvester Triplett MD [facility] CenterXR Ribs Views and Chest PAOrdered By: Sylvester Triplett on 71-86-7315ACZSParkland Health Center Work Phone: ecg 12 lead ECGon 60-41-4426BST 12 lead ECGCLEVELAND CLINIC [facility] [place] [address] [place] [address] Electrocardiograph Report Signed Patient: Kourtney Novak MR#: [id number] : 1975 Acct:[id number] Age/Sex: 49 / F ADM Date: 06/05/25 Loc: ER Room: Type: [facility] ER Attending Dr: Ordering Provider: Mayda Hendrix [...] was found Confirmed by ALESSIA ECHEVERRIA MD ([id number]) on 06/07/2025 4:43:01 AM Referred By: Electronically Signed By: ALESSIA ECHEVERRIA MD Transcribed By: MUS [place] [address] [place] [address] Physician GroupX-ray reportOrdered By: Lincoln Hoffmann on 51-82-2108Vikea reportCLEVELAND CLIN[facility] [place] [address] [place] [address] XRay Report Signed Patient: Kourtney Novak MR#: [id number] : 1975 Acct:[id number] Age/Sex: 49 / F ADM Date: 5 Loc: ER Room: Type: [facility] ER Attending Dr: Copies to: Mayda [...] NO ACUTE PLEURAL-PARENCHYMAL DISEASE. Impression dictated by: Lnicoln Hoffmann M.D. 06/05/2025 9:52 PM Dictation Location: [facility] Transcribed By: [facility] 06/05/252151 Dictated By: Lincoln Hoffmann MD 06/05/252147 Signed By: 06/05/252151 [facility] Work Phone: XR RIBS 2 VIEWS RIGHT WITH CHEST ANTEROPOSTERIORon 62-58-2445CP RIBS 2 VIEWS RIGHT WITH CHEST ANTEROPOSTERIOREXAMINATION/TECHNIQUE: [...] acute displaced rib fracture. ELECTRONICALLY SIGNED BY: Josselin HernándezNot AvailableXR Ribs Views and Chest PAon 20-89-8056Qnsotxqzp Study observation (narrative)NOMS HealthcareXR ribs RT min 3V w CXR1V*on 85-48-0181VS ribs RT min 3V w CXR1V*[facility] [place] [address] [place] [address] XRay Report Signed Patient: Kourtney Novak MR#: [id number] : 1975 Acct:[id number] Age/Sex: 49 / F ADM Date: 06/05/25 Loc: ER Room: Type: [facility] ER Attending Dr: Copies to: Mayda [...] Hoffmann M.D. 06/05/2025 9:52 PM Dictation Location: [facility]-29 Transcribed By: GRACIE 06/05/252151 Dictated By: Lincoln Hoffmann MD 06/05/252147 Signed By: 06/05/252151[facility] Physician GroupX-ray reportOrdered By: Perry Milton on 26-23-1414Yycwg reportCLEVELAND CLIN[facility] [address] [place] [address] XRay Report Signed Patient: Kourtney Novak MR#: [id number] : 1975 Acct:[id number] Age/Sex: 49 / F ADM Date: 5 [place] [facility] [place]: Type: [facility] Attending Dr: Krishan Nuñez DO Copies [...] 8:02 PM Dictation Location: [facility]17 Transcribed By: GRACIE 05/30/252001 Dictated By: Perry Milton II, MD 05/30/251999 Signed By: 05/30/252001 [facility] Work Phone: XR shoulder RT min 2V*on 14-27-5004XV shoulder RT min 2V*[facility] [address] [place] [address] XRay Report Signed Patient: Kourtney Novak MR#: [id number] : 1975 Acct:[id number] Age/Sex: 49 / F ADM Date: 05/30/25 [place] [facility] [place]: Type: [facility] Attending Dr: Krishan Nuñez DO Copies [...] Milton M.D. 05/30/2025 8:02 PM Dictation Location: [place] [address] Transcribed By: [facility] 05/30/252001 Dictated By: Perry Milton II, MD 05/30/251999 Signed By: 05/30/25 [facility]NoAt[facility] Physician SpzjzT1V with Estimated Average Gluon 64-13-9338Xtrudko [Mass/Vol]117 mg/dLUF Health [facility]® Hospital Physician GroupComment on above:Order Comment: FASTING.JKWRyuri Comment: PERFORMED BY: [facility] [address] [place] [address] PATHOLOGIST [employer] DEPARTMENT OPERATOR BERNARDINO HAMILTON M.D.Performed By: #### LIPID, [id number], TSH3, T3F, FE PRO, [id number], T4T, MG, A1C WTH eA, CBC, PHOS #### [facility] [address] [place] [address] #### INSULIN #### [facility] ,Alanine aminotransferase [Enzymatic activity/volume] in Serum or PlasmaOrdered By: Jesus Gonzalez on 51-85-2503JZY [Catalytic activity/Vol]17 U/LNormal7-52 [facility] RehabilitationComment on above:Performed By: #### LIPID, [id number], TSH3, T3F, FE PRO, [id number], T4T, MG, A1C WTH eA, CBC, PHOS #### [facility] [address] [place] [address] [place] #### INSULIN #### [facility] ,Albumin [Mass/volume] in Serum or Plasma by Bromocresol green (BCG) dye binding methoOrdered By: Jesus Gonzalez on 32-07-9256Dqesxbv BCG dye [Mass/Vol]4.2 g/dL 3.5-5.7FProMedica Defiance Regional HospitalAlkaline phosphatase [Enzymatic activity/volume] in Serum or PlasmaOrdered By: Jesus Gonzalez on 43-04-3794JAV [Catalytic activity/Vol]46 U/DRqlwcb29-742RlxvafasjC[facility] Comment on above:Result Comment: PERFORMED BY: [place] [address] PATHOLOGIST WHEY DEPARTMENT OPERATOR BERNARDINO HAMILTON M.D.Performed By: #### LIPID, [id number], TSH3, T3F, FE PRO, [id number], T4T, MG, A1C WTH eA, CBC, PHOS #### [facility] [address] [place] [address] #### INSULIN #### [facility] ,Aspartate aminotransferase [Enzymatic activity/volume] in Serum or Plasma Ordered By: Jesus Gonzalez on 66-55-0813MRO [Catalytic activity/Vol]12 U/WSpp60-24 [facility] For RehabilitationComment on above:Performed By: #### LIPID, [id number], TSH3, T3F, FE PRO, [id number], T4T, MG, A1C WTH eA, CBC, PHOS #### [facility] [address] [place] [address] #### INSULIN #### [facility] ,Basophils [#/volume] in Blood by Automated countOrdered By: Jesus Gonzalez on 82-98-2152Tcnqohmxk (Bld) [#/Vol]0.1 10*3/uLNormal0.0-0.2FProMedica Defiance Regional HospitalComment on above:Order Comment: FASTING.JKWResult Comment: PERFORMED BY: [place] [address] PATHOLOGIST WHEY DEPARTMENT OPERATOR BERNARDINO HAMILTON M.D.Performed By: #### LIPID, [id number], TSH3, T3F, FE PRO, [id number], T4T, MG, A1C WTH eA, CBC, PHOS #### [address] #### INSULIN #### [facility] ,Basophils/100 leukocytes in Blood by Automated countOrdered By: Jesus Gonzalez on 87-26-1393Lndcscasm/100 WBC (Bld)0.7 %Normal.[facility] Comment on above:Order Comment: FASTING.JKWPerformed By: #### LIPID, [id number], TSH3, T3F, FE PRO, [id number], T4T, MG, A1C WTH eA, CBC, PHOS #### [address] #### INSULIN #### [facility] ,Bilirubin.total [Mass/volume] in Serum or PlasmaOrdered By: Jesus Gonzalez on 16-71-1597Atlhmyzin [Mass/Vol]0.3 mg/dLNormal0.3-1.0[facility] For RehabilitationComment on above:Performed By: #### LIPID, [id number], TSH3, T3F, FE PRO, EPLJ19VXN, T4T, MG, A1C WTH eA, CBC, PHOS #### [facility] [address] [place] [address] [place] #### INSULIN #### [facility] ,Blood estimated average glucose determination by estimation from glycated hemoglobinOrdered By: Jesus Carlos on 43-92-4810Ytpzrmh glucose Estimated from glycated hemoglobin (Bld) [Mass/Vol]117 mg/dLCleveland Clinic Children'S Hospital For Rehabilitation Calcium [Mass/volume] in Serum or PlasmaOrdered By: Jesus Gonzalez on 05-26-2025 Calcium [Mass/Vol]9.1 mg/dLNormal8.6-10.3FProMedica Defiance Regional Hospital Comment on above:Performed By: #### LIPID, [id number], TSH3, T3F, FE PRO, [id number], T4T, MG, A1C WTH eA, CBC, PHOS #### [place] [address] [place] #### INSULIN #### [facility] ,Carbon dioxide, total [Moles/volume] in Serum or PlasmaOrdered By: Jesus Gonzalez on 02-35-2786VN5 [Moles/Vol]26.4 mmol/IAvmwgi39.0-31.0[facility] For RehabilitationComment on above:Performed By: #### LIPID, [id number], TSH3, T3F, FE PRO, [id number], T4T, MG, A1C WTH eA, CBC, PHOS #### [facility] [address] [place] [address] [place] #### INSULIN #### [facility] ,Chloride [Moles/volume] in Serum or PlasmaOrdered By: Jesus Gonzalez on 05-26-2025 Chloride [Moles/Vol]103 mmol/UPzcsdw72-067NqqozwbhbC[facility] Comment on above:Performed By: #### LIPID, [id number], TSH3, T3F, FE PRO, [id number], T4T, MG, A1C WTH eA, CBC, PHOS #### [place] [address] [place] #### INSULIN #### [facility] ,Cholesterol [Mass/volume] in Serum or PlasmaOrdered By: Jesus Gonzalez on 43-01-5281Wxgmbmlxbpv [Mass/Vol]206 mg/wRNbxc114-690TeyfvmwiyCleveland Clinic Children'S Hospital For RehabilitationComment on above:Chol less than 200 mg/dl low riskChol 201-239 mg/dl borderline riskChol 240 mg/dl and greater high riskOrder Comment: FASTING.JKW Result Comment: Chol less than 200 mg/dl low risk Chol 201-239 mg/dl borderline risk Chol 240 mg/dl and greater high riskPerformed By: #### LIPID, [id number], TSH3, T3F, FE PRO, [id number], T4T, MG, A1C WTH eA, CBC, PHOS #### [facility] [address] [place] [address] [place] #### INSULIN #### [facility] ,Cholesterol in HDL [Mass/volume] in Serum or PlasmaOrdered By: Jesus Carlos on 33-61-9299Dfogrogtcig in HDL [Mass/Vol]67 mg/qQInmeey10-46MtdmegypkCleveland Clinic Children'S Hospital For RehabilitationComment on above:HDL CHOL ATP-III CLASSIFICATION Cardiovascular RiskHDL > or equal to 60 mg/dL LOWHDL < 40 mg/dL HIGHOrder Comment: FASTING.JKW Result Comment: HDL CHOL ATP-III CLASSIFICATION Cardiovascular Risk HDL > or equal to 60 mg/dL LOW HDL < 40 mg/dL HIGHPerformed By: #### LIPID, [id number], TSH3, T3F, FE PRO, [id number], T4T, MG, A1C WTH eA, CBC, PHOS #### [facility] [address] [place] [address] [place] #### INSULIN #### [facility] ,Cholesterol in LDL Calc [Mass/Vol]Ordered By: Jesus Carlos on 05-26-2025 Cholesterol in LDL [Mass/Vol]91 mg/dL0-100[facility] Comment on above:LDL ATP III CLASSIFICATIONLDL less than 100 mg/dL OptimalLDL 100-129 mg/dL Near or above evfvkuqWYA639-171 mg/dL Borderline highLDL 160-189 mg/dL HighLDL greater than 189 mg/dL Very highCholesterol in VLDL Calc [Mass/Vol]Ordered By: Jesus Gonzalez on 85-69-7300Pfiesrodmgp in VLDL [Mass/Vol]47 mg/dLCleveland Clinic Children'S Hospital For RehabilitationComplete Blood Count Auto Diffon 56-11-7300Bejt Corpuscular HGB Conc33.0 g/eWByyarr51.0-35.0The [facility] Physician GroupComment on above:Order Comment: FASTING.JKWPerformed By: #### LIPID, [id number], TSH3, T3F, FE PRO, [id number], T4T, MG, A1C WTH eA, CBC, PHOS #### [facility] [address] [place] [address] #### INSULIN #### [facility] ,NRBC%0.1 /100{WBC}Normal0-0.5The [facility] Physician GroupComment on above: Order Comment: FASTING.JKWPerformed By: #### LIPID, [id number], TSH3, T3F, FE PRO, [id number], T4T, MG, A1C WTH eA, CBC, PHOS #### [facility] [address] [place] [address] #### INSULIN #### [facility] ,White Blood Count8.3 [CFU]/mLNormal3.8-11.6The [facility] Physician GroupComment on above:Order Comment: FASTING.JKWPerformed By: #### LIPID, [id number], TSH3, T3F, FE PRO, [id number], T4T, MG, A1C WTH eA, CBC, PHOS #### [facility] [address] [place] [address] [place] #### INSULIN #### [facility] ,Comprehensive Metabolic Panelon 57-96-6322Emjtilh [Mass/Vol]4.2 g/dLNormal 3.5-5.7The [facility] Physician GroupComment on above:Performed By: #### LIPID, [id number], TSH3, T3F, FE PRO, [id number], T4T, MG, A1C WTH eA, CBC, PHOS #### [place] [address] [place] #### INSULIN #### [facility] ,GFR/1.73 sq M.predicted MDRD (S/P/Bld) [Vol rate/Area]mL/min/{1.73_m2}NormalThe [facility] Physician GroupComment on above:Performed By: #### LIPID, [id number], TSH3, T3F, FE PRO, [id number], T4T, MG, A1C WTH eA, CBC, PHOS #### [place] [address] [place] #### INSULIN #### [facility] ,Creatinine [Mass/volume] in Serum or PlasmaOrdered By: Jesus Gonzalez on 26-62-7601Hjuqqylazt [Mass/Vol]0.85 mg/dLNormal0.60-1.20[facility] RehabilitationComment on above:Performed By: #### LIPID, [id number], TSH3, T3F, FE PRO, [id number], T4T, MG, A1C WTH eA, CBC, PHOS #### [address] #### INSULIN #### [facility] ,Eosinophils [#/volume] in Blood by Automated countOrdered By: Jesus Gonzalez on 10-85-5867Etjnkxbdgnp (Bld) [#/Vol]0.2 10*3/uLNormal0.0-0.45[facility] RehabilitationComment on above:Order Comment: FASTING.JKWPerformed By: #### LIPID, [id number], TSH3, T3F, FE PRO, [id number], T4T, MG, A1C WTH eA, CBC, PHOS #### [place] [address] [place] #### INSULIN #### [facility] ,Eosinophils/100 leukocytes in Blood by Automated countOrdered By: Jesus Smithpiedad on 96-52-7350Wwvmwwknont/100 WBC (Bld)3.0 %Normal.[facility] For RehabilitationComment on above:Order Comment: FASTING.JKWPerformed By: #### LIPID, [id number], TSH3, T3F, FE PRO, [id number], T4T, MG, A1C WTH eA, CBC, PHOS #### [facility] [address] [place] [address] #### INSULIN #### [facility] ,Erythrocyte distribution width [Ratio] by Automated countOrdered By: Jesus Carlos on [id number] distribution width (RBC) [Ratio]13.5 %Normal 11.9-15.3FProMedica Defiance Regional HospitalComment on above:Order Comment: FASTING.JKWPerformed By: #### LIPID, [id number], TSH3, T3F, FE PRO, [id number], T4T, MG, A1C WTH eA, CBC, PHOS #### [facility] [address] [place] [address] #### INSULIN #### [facility] ,Erythrocytes [#/volume] in Blood by Automated countOrdered By: Jesus Carlos on 42-55-0498QAE (Bld) [#/Vol]4.27 10*6/uLNormal3.60-5.00[facility] Hospital For RehabilitationComment on above:Order Comment: FASTING.JKWPerformed By: #### LIPID, [id number], TSH3, T3F, FE PRO, [id number], T4T, MG, A1C WTH eA, CBC, PHOS #### [facility] [address] [place] [address] [place] #### INSULIN #### [facility] ,FE PROon 05-26-2025% Iron Ymikekomqr30.2 %Jar55-25Nwg [facility] Comment on above:Order Comment: FASTING.JKWPerformed By: #### LIPID, [id number], TSH3, T3F, FE PRO, [id number], T4T, MG, A1C WTH eA, CBC, PHOS #### [facility] [address] [place] [address] [place] #### INSULIN #### [facility] ,Total Iron Binding Nptruysa617 ug/sYOeooxx705-900Sxk [facility] Comment on above:Order Comment: FASTING.JKWPerformed By: #### LIPID, [id number], TSH3, T3F, FE PRO, [id number], T4T, MG, A1C WTH eA, CBC, PHOS #### [facility] [address] [place] [address] [place] #### INSULIN #### [facility] ,Ferritin [Mass/volume] in Serum or PlasmaOrdered By: Jesus Gonzalez on 05-26-2025 Ferritin [Mass/Vol]8.1 ng/mLLow11.0-306.8[facility] Comment on above:Order Comment: FASTING.JKWPerformed By: #### LIPID, [id number], TSH3, T3F, FE PRO, [id number], T4T, MG, A1C WTH eA, CBC, PHOS #### [place] [address] [place] #### INSULIN #### [facility] ,Folate [Mass/volume] in Serum or PlasmaOrdered By: Jesus Gonzalez on 05-26-2025 Folate [Mass/Vol]30.0 ng/mL>5.9[facility] For RehabilitationComment on above:Folate reference range: >5.9 ng/mlThe WHO technical consultation on folate and vitamin z37urfxcqyygtik has determined that folate concentrations lessthan 4 ng/ml are considered deficient.Glomerular filtration rate [Volume Rate/Area] in Serum, Plasma or Blood by CreatinineOrdered By: Jesus Gonzalez on 05-26-2025 Glomerular filtration rate [Volume Rate/Area] in Serum, Plasma or Blood by Creatinine> 60.0 mL/MinCleveland Clinic Children'S Hospital For RehabilitationGlucose [Mass/volume] in Serum or PlasmaOrdered By: Jesus Carlos on 99-58-0465Lqtjyvx [Mass/Vol]88 mg/dL Bygrvg60-994BulsywssxCleveland Clinic Children'S Hospital For RehabilitationComment on above:ADA recommended reference rangeRandom Glucose Reference [...] ADA recommended reference rangePerformed By: #### LIPID, [id number], TSH3, T3F, FE PRO, [id number], T4T, MG, A1C WTH eA, CBC, PHOS #### [facility] [address] [place] [address] #### INSULIN #### [facility] ,Hematocrit [Volume Fraction] of Blood by Automated countOrdered By: Jesus Gonzalez on 69-35-4853Owgmaexgic (Bld) [Volume fraction]37.8 %Nqpahk07.0-46.4FProMedica Defiance Regional HospitalComment on above:Order Comment: FASTING.JKWPerformed By: #### LIPID, [id number], TSH3, T3F, FE PRO, [id number], T4T, MG, A1C WTH eA, CBC, PHOS #### [facility] [address] [place] [address] [place] #### INSULIN #### [facility] ,Hemoglobin A1c/Hemoglobin.total in BloodOrdered By: Jesus Gonzalez on 05-26-2025 HbA1c (Bld) [Mass fraction]5.7 %High4.3-5.6FProMedica Defiance Regional Hospital Comment on above:Increased risk for diabetes: 5.7 - 6.4diabetes: >6.4glycemic control for adults with diabetes: <7.0Order Comment: FASTING.JKWResult Comment: Increased risk for diabetes: 5.7 - 6.4 diabetes: >6.4 glycemic control for adults with diabetes: <7.0Performed By: #### LIPID, [id number], TSH3, T3F, FE PRO, [id number], T4T, MG, A1C WTH eA, CBC, PHOS #### [address] #### INSULIN #### [facility] ,Hemoglobin [Mass/volume] in BloodOrdered By: Jesus Gonzalez on 05-26-2025 Hemoglobin (Bld) [Mass/Vol]12.5 g/lAKuuetr02.8-15.4FProMedica Defiance Regional HospitalComment on above:Order Comment: FASTING.JKWPerformed By: #### LIPID, [id number], TSH3, T3F, FE PRO, [id number], T4T, MG, A1C WTH eA, CBC, PHOS #### [address] #### INSULIN #### [facility] ,Insulinon 76-91-0488Qzmvipx33.6 u[iU]/mLNormal2.6-24.9The [facility] Physician GroupComment on above:Order Comment: FASTING.[employer] Comment: Performed at: - [address] [id number] Boat Tender: Maxim Daniel PhD, Phone: [phone] PERFORMED BY: [place] [address] PATHOLOGIST WHEY DEPARTMENT OPERATOR BERNARDINO HAMILTON M.D.Performed By: #### LIPID, [id number], TSH3, T3F, FE PRO, [id number], T4T, MG, A1C WTH eA, CBC, PHOS #### [address] #### INSULIN #### [facility] ,Iron [Mass/volume] in Serum or PlasmaOrdered By: Jesus Gonzalez on 21-43-1408Epoe [Mass/Vol]45 ug/dXGpo32-040JldnrfvfqCleveland Clinic Children'S Hospital For RehabilitationComment on above: Order Comment: FASTING.JKWPerformed By: #### LIPID, [id number], TSH3, T3F, FE PRO, [id number], T4T, MG, A1C WTH eA, CBC, PHOS #### [facility] [address] [place] [address] [place] #### INSULIN #### [facility] ,Leukocytes [#/volume] corrected for nucleated erythrocytes in Blood by Automated counOrdered By: Jesus Gonzalez on 24-85-3660HXE corrected for nucl RBC Auto (Bld) [#/Vol]8.3 10*3/uL3.8-11.6FProMedica Defiance Regional HospitalLeukocytes [#/volume] in Blood by Automated countOrdered By: Jesus Gonzalez on 60-52-8920TOT (Bld) [#/Vol]8.3 10*3/uLNormal3.8-11.6FProMedica Defiance Regional HospitalComment on above:Order Comment: FASTING.JKWPerformed By: #### LIPID, [id number], TSH3, T3F, FE PRO, [id number], T4T, MG, A1C WTH eA, CBC, PHOS #### [facility] [address] [place] [address] [place] #### INSULIN #### [facility] ,Lipid Panelon 05-41-0057FYE Cholesterol,Knplpjcvqr37 mg/dLNormal0-100The [facility] Physician GroupComment on above:Order Comment: FASTING.JKWResult Comment: LDL ATP III CLASSIFICATION LDL less than 100 mg/dL Optimal LDL 100-129 mg/dL Near or above optimal LDL 130-159 mg/dL Borderline high LDL 160-189 mg/dL High LDL greater than 189 mg/dL Very highPerformed By: #### LIPID, [id number], TSH3, T3F, FE PRO, [id number], T4T, MG, A1C WTH eA, CBC, PHOS #### [place] [address] [place] #### INSULIN #### [facility] ,Triglyceride w/Umdqao686 mg/dLHigh0-149[facility] Physician GroupComment on above:Order Comment: FASTING.JKWResult Comment: TRIG ATP III CLASSIFICATION TRIG less than 150 mg/dL Normal TRIG 150-199 mg/dL Borderline high TRIG 200-500 mg/dL High TRIG greater than 500 mg/dL Very high Standard traceable to the Center for Disease Conrtrol and Prevention (CDC) test method.Performed By: #### LIPID, [id number], TSH3, T3F, FE PRO, [id number], T4T, MG, A1C WTH eA, CBC, PHOS #### [address] #### INSULIN #### [facility] ,VLDL VULZOWNNEZD25 mg/dLUF Health The Villages® Hospital Physician GroupComment on above: Order Comment: FASTING.JKWPerformed By: #### LIPID, [id number], TSH3, T3F, FE PRO, [id number], T4T, MG, A1C WTH eA, CBC, PHOS #### [address] #### INSULIN #### [facility] ,Lymphocytes [#/volume] in Blood by Automated countOrdered By: Jesus Gonzalez on 30-76-9259Xrhhwmlxmmp (Bld) [#/Vol]2.9 10*3/uLNormal1.00-4.8[facility] For RehabilitationComment on above:Order Comment: FASTING.JKWPerformed By: #### LIPID, [id number], TSH3, T3F, FE PRO, [id number], T4T, MG, A1C WTH eA, CBC, PHOS #### [place] [address] [place] #### INSULIN #### [facility] ,Lymphocytes/100 leukocytes in Blood by Automated countOrdered By: Jesus Gonzalez on 46-76-8984Zgihnnewdbv/100 WBC (Bld)34.8 %Normal.[facility] Hospital For RehabilitationComment on above:Order Comment: FASTING.JKWPerformed By: #### LIPID, [id number], TSH3, T3F, FE PRO, [id number], T4T, MG, A1C WTH eA, CBC, PHOS #### [facility] [address] [place] [address] [place] #### INSULIN #### [facility] ,MCH [Entitic mass] by Automated countOrdered By: Jesus Gonzalez on 45-53-9956CSD (RBC) [Entitic mass]29.2 xyOdnlop28.7-34.3FProMedica Defiance Regional Hospital Comment on above:Order Comment: FASTING.JKWPerformed By: #### LIPID, [id number], TSH3, T3F, FE PRO, [id number], T4T, MG, A1C WTH eA, CBC, PHOS #### [facility] [address] [place] [address] #### INSULIN #### [facility] ,MCHC Auto (RBC) [Mass/Vol]Ordered By: Jesus Gonzalez on 26-18-7362YVMG (RBC) [Mass/Vol]33.0 g/dL32.0-35.0[facility] For RehabilitationMCV [Entitic volume] by Automated countOrdered By: Jesus Gonzalez on 68-22-8885RFI (RBC) [Entitic vol]88.5 lDZakeyr93-453KkdvnvmexCleveland Clinic Children'S Hospital For RehabilitationComment on above:Order Comment: FASTING.JKWPerformed By: #### LIPID, [id number], TSH3, T3F, FE PRO, [id number], T4T, MG, A1C WTH eA, CBC, PHOS #### [facility] [address] [place] [address] [place] #### INSULIN #### [facility] ,Magnesium [Mass/volume] in Serum or PlasmaOrdered By: Jesus Gonzalez on 05-26-2025 Magnesium [Mass/Vol]1.8 mg/dLLow1.9-2.7FProMedica Defiance Regional HospitalComment on above:Order Comment: FASTING.JKWPerformed By: #### LIPID, [id number], TSH3, T3F, FE PRO, [id number], T4T, MG, A1C WTH eA, CBC, PHOS #### [facility] [address] [place] [address] [place] #### INSULIN #### [facility] ,Monocytes [#/volume] in Blood by Automated countOrdered By: Jesus Gonzalez on 15-55-0415Hmncyxdfh (Bld) [#/Vol]0.9 10*3/uLHigh0.0-0.8[facility] For RehabilitationComment on above:Order Comment: FASTING.JKWPerformed By: #### LIPID, [id number], TSH3, T3F, FE PRO, [id number], T4T, MG, A1C WTH eA, CBC, PHOS #### [address] #### INSULIN #### [facility] ,Monocytes/100 leukocytes in Blood by Automated countOrdered By: Jesus Gonzalez on 89-60-3472Zzltjzgbj/100 WBC (Bld)11.2 %Normal.[facility] Comment on above:Order Comment: FASTING.JKWPerformed By: #### LIPID, [id number], TSH3, T3F, FE PRO, [id number], T4T, MG, A1C WTH eA, CBC, PHOS #### [facility] [address] [place] [address] [place] #### INSULIN #### [facility] ,Neutrophils [#/volume] in Blood by Automated countOrdered By: Jesus Gonzalez on 73-38-8611Lymnlwxnrce (Bld) [#/Vol]4.2 10*3/uLNormal1.8-7.7FProMedica Defiance Regional HospitalComment on above:Order Comment: FASTING.JKWPerformed By: #### LIPID, [id number], TSH3, T3F, FE PRO, [id number], T4T, MG, A1C WTH eA, CBC, PHOS #### [facility] [address] [place] [address] [place] #### INSULIN #### [facility] ,Neutrophils/100 leukocytes in Blood by Automated countOrdered By: Jesus Gonzalez on 37-14-1259Zqfokdnuogy/100 WBC (Bld)50.3 %Normal.[facility] For RehabilitationComment on above:Order Comment: FASTING.JKWPerformed By: #### LIPID, [id number], TSH3, T3F, FE PRO, [id number], T4T, MG, A1C WTH eA, CBC, PHOS #### [facility] [address] [place] [address] [place] #### INSULIN #### [facility] ,No Panel InformationOrdered By: Jesus Gonzalez on 98-82-5975Vytfdbln Creatinine Clearance (ChemN/[facility]pelier HospitalNucleated erythrocytes [Presence] in Blood by Automated countOrdered By: Jesus Gonzalez on 05-26-2025 Nucleated RBC Auto Ql (Bld)0.1 /100{WBC}0-0.5FProMedica Defiance Regional Hospital Phosphate [Mass/volume] in Serum or PlasmaOrdered By: Jesus Gonzalez on 05-26-2025 Phosphate [Mass/Vol]3.8 mg/dLNormal2.5-4.5FProMedica Defiance Regional Hospital Comment on above:Order Comment: FASTING.JKWPerformed By: #### LIPID, [id number], TSH3, T3F, FE PRO, [id number], T4T, MG, A1C WTH eA, CBC, PHOS #### [facility] [address] [place] [address] [place] #### INSULIN #### [facility] ,Platelet mean volume [Entitic volume] in Blood by Automated countOrdered By: Jesus Gonzalez on 71-62-4595Utzaefcw mean volume (Bld) [Entitic vol]8.3 fLNormal 6.3-10.7FProMedica Defiance Regional HospitalComment on above:Order Comment: FASTING.JKWPerformed By: #### LIPID, [id number], TSH3, T3F, FE PRO, [id number], T4T, MG, A1C WTH eA, CBC, PHOS #### [facility] [address] [place] [address] [place] #### INSULIN #### [facility] ,Platelets [#/volume] in Blood by Automated countOrdered By: Jesus Gonzalez on 83-77-0637Ewxykhqua (Bld) [#/Vol]421 10*3/kHPqsxen160-713ZbxsncytdCleveland Clinic Children'S Hospital For RehabilitationComment on above:Order Comment: FASTING.JKWPerformed By: #### LIPID, [id number], TSH3, T3F, FE PRO, [id number], T4T, MG, A1C WTH eA, CBC, PHOS #### [address] #### INSULIN #### [facility] ,Potassium [Moles/volume] in Serum or PlasmaOrdered By: Jesus Gonzalez on 82-67-7033Rvlxeffho [Moles/Vol]4.6 mmol/LNormal3.5-5.1FProMedica Defiance Regional HospitalComment on above:Performed By: #### LIPID, [id number], TSH3, T3F, FE PRO, [id number], T4T, MG, A1C WTH eA, CBC, PHOS #### [address] #### INSULIN #### [facility] ,Protein [Mass/volume] in Serum or PlasmaOrdered By: Jesus Gonzalez on 05-26-2025 Protein [Mass/Vol]6.5 g/dLNormal6.4-8.9[facility] For RehabilitationComment on above:Performed By: #### LIPID, [id number], TSH3, T3F, FE PRO, [id number], T4T, MG, A1C WTH eA, CBC, PHOS #### [place] [address] [place] #### INSULIN #### [facility] ,Serum globulin measurement by calculation (mass/volume)Ordered By: Jesus Gonzalez on 67-04-5610Dfonndjm (S) [Mass/Vol]2.3 g/dLNormUniversity Hospitals St. John Medical CenterComment on above:Performed By: #### LIPID, [id number], TSH3, T3F, FE PRO, [id number], T4T, MG, A1C WTH eA, CBC, PHOS #### [facility] [address] [place] [address] [place] #### INSULIN #### [facility] ,Serum or plasma albumin/globulin mass ratioOrdered By: Jesus Gonzalez on 73-42-6952Jqztoew/Globulin [Mass ratio]1.8 {ratio}[facility]ettering Health TroyComment on above:Performed By: #### LIPID, [id number], TSH3, T3F, FE PRO, [id number], T4T, MG, A1C WTH eA, CBC, PHOS #### [place] [address] [place] #### INSULIN #### [facility] ,Serum or plasma anion gap determinationOrdered By: Jesus Gonzalez on 05-26-2025 Anion gap [Moles/Vol]13.2 mmol/LNormal6.0-15.0[facility] Comment on above:Performed By: #### LIPID, [id number], TSH3, T3F, FE PRO, [id number], T4T, MG, A1C WTH eA, CBC, PHOS #### [place] [address] [place] #### INSULIN #### [facility] ,Serum or plasma insulin measurement (units/volume)Ordered By: Jesus Gonzalez on 26-92-8336Yyjhmfo Qn15.6 u[iU]/mL2.6-24.9[facility] Comment on above:Performed at: [facility] Lab[address] [id number] Director: Maxim Daniel PhD, Phone: [phone] or plasma iron binding capacity measurement (mass/volume)Ordered By: Jesus Gonzalez on 99-21-9988Mols binding capacity [Mass/Vol]442 ug/jM054-234DhmcsekreWright-Patterson Medical Centererum or plasma iron saturation measurement (mass fraction)Ordered By: Jesus Gonzalez on 67-88-1858Lmzz saturation [Mass fraction]10.2 %Jel25-66 Wright-Patterson Medical Centererum or plasma total cholesterol/high density lipoprotein (HDL) cholesterol mass ratOrdered By: Jesus Gonzalez on 05-26-2025 Cholesterol.total/Cholesterol in HDL [Mass ratio]3.1 {ratio}Normal<5.0[facility] For RehabilitationComment on above:Order Comment: FASTING.JKWPerformed By: #### LIPID, [id number], TSH3, T3F, FE PRO, [id number], T4T, MG, A1C WTH eA, CBC, PHOS #### [facility] [address] [place] [address] [place] #### INSULIN #### [facility] ,Sodium [Moles/volume] in Serum or PlasmaOrdered By: Jesus Gonzalez on 05-26-2025 Sodium [Moles/Vol]138 mmol/HSrtcnm276-687NgwjclvirCleveland Clinic Children'S Hospital For Rehabilitation Comment on above:Performed By: #### LIPID, [id number], TSH3, T3F, FE PRO, [id number], T4T, MG, A1C WTH eA, CBC, PHOS #### [facility] [address] [place] [address] [place] #### INSULIN #### [facility] ,Thyrotropin [Units/volume] in Serum or PlasmaOrdered By: Jesus Gonzalez on 10-40-5963MQD Qn4.15 m[IU]/LNormal0.45-5.33[facility] Comment on above:Order Comment: FASTING.JKWPerformed By: #### LIPID, [id number], TSH3, T3F, FE PRO, [id number], T4T, MG, A1C WTH eA, CBC, PHOS #### [facility] [address] [place] [address] #### INSULIN #### [facility] ,Thyroxine (T4) [Mass/volume] in Serum or PlasmaOrdered By: Jesus Gonzalez on 15-58-5939P2 [Mass/Vol]11.24 ug/dLNormal5.39-11.82[facility] For RehabilitationComment on above:Order Comment: FASTING.JKWPerformed By: #### LIPID, [id number], TSH3, T3F, FE PRO, [id number], T4T, MG, A1C WTH eA, CBC, PHOS #### [address] #### INSULIN #### [facility] ,Transferrin [Mass/volume] in Serum or PlasmaOrdered By: Jesus Carlos on 21-08-1001Iaoknrvzbra [Mass/Vol]316 mg/cTUwmmpm673-589SyrckblzvCleveland Clinic Children'S Hospital For RehabilitationComment on above:Order Comment: FASTING.JKWPerformed By: #### LIPID, [id number], TSH3, T3F, FE PRO, [id number], T4T, MG, A1C WTH eA, CBC, PHOS #### [address] #### INSULIN #### [facility] ,Triglyceride [Mass/volume] in Serum or PlasmaOrdered By: Jesus Carlos on 27-45-8048Tpvmgsbiceiv [Mass/Vol]239 mg/dLHigh0-149[facility] For RehabilitationComment on above:TRIG ATP III CLASSIFICATIONTRIG less than 150 mg/dL NormalTRIG 150-199 mg/dL Borderline highTRIG 200-500 mg/dL High TRIG greater than 500 mg/dL Very highStandard traceable to the Center for Disease Conrtrol and Prevention (CDC) test method.Triiodothyronine (T3) Freeon 05-26-2025 Triiodothyronine (T3) Free3.72 pg/mLNormal2.50-3.90[facility] Comment on above:Order Comment: FASTING.JKWResult Comment: PERFORMED BY: [place] [address] PATHOLOGIST WHEY DEPARTMENT OPERATOR BERNARDINO HAMILTON M.D.Performed By: #### LIPID, [id number], TSH3, T3F, FE PRO, [id number], T4T, MG, A1C WTH eA, CBC, PHOS #### [address] #### INSULIN #### [facility] ,Triiodothyronine (T3) Free [Mass/volume] in Serum or PlasmaOrdered By: Jesus Gonzalez on 00-82-4190Vbbb T3 [Mass/Vol]3.72 pg/mL2.50-3.90[facility] For RehabilitationUrea nitrogen [Mass/volume] in Serum or PlasmaOrdered By: Jesus Gonzalez on 43-62-4862Htwm nitrogen [Mass/Vol]15 mg/dLNormal7-25[facility] For RehabilitationComment on above:Performed By: #### LIPID, [id number], TSH3, T3F, FE PRO, [id number], T4T, MG, A1C WTH eA, CBC, PHOS #### [address] #### INSULIN #### [facility] ,Vit. B12/Folate Profileon 00-31-8178Zqgoru45.0 ng/mLNormal>5.9The [facility] Physician GroupComment on above:Order Comment: FASTING.[employer] Comment: Folate reference range: >5.9 ng/ml The WHO technical consultation on folate and vitamin b12 deficiencies has determined that folate concentrations less than 4 ng/ml are considered deficient.Performed By: #### LIPID, [id number], TSH3, T3F, FE PRO, [id number], T4T, MG, A1C WTH eA, CBC, PHOS #### [address] #### INSULIN #### [facility] ,Vitamin B12 ser/plasOrdered By: Jesus Gonzalez on 26-83-7294Wfnttarko (Vitamin B12) [Mass/Vol]484 pg/eERwqxfy311-596BuibbkoalCleveland Clinic Children'S Hospital For RehabilitationComment on above:Order Comment: FASTING.JKWPerformed By: #### LIPID, [id number], TSH3, T3F, FE PRO, [id number], T4T, MG, A1C WTH eA, CBC, PHOS #### [address] #### INSULIN #### [facility] ,Vitamin D 25 Hydroxy Totalon 48-73-5969Fdyiysu D 25 Hydroxy Total31.9 ng/mL Eioarq08-062Vrv [facility] Physician GroupComment on above:Order Comment: FASTING.JKWResult Comment: VITAMIN D STATUS 25(OH)VITAMIN D RANGE (ng/mL) Deficient <20 Insufficient 20 to <30 Sufficient 30 to 100 Reference: Anum Berry, Brynn APARICIO, et al. Evaluation,treatment, and prevention of vitamin D deficiency; an Endocrine Society clinical practice guideline. JCEM. 2010; 96(7):1911-30. PERFORMED BY: [place] [address] PATHOLOGIST WHEY DEPARTMENT OPERATOR BERNARDINO HAMILTON M.D.Performed By: #### LIPID, [id number], TSH3, T3F, FE PRO, [id number], T4T, MG, A1C WTH eA, CBC, PHOS #### [address] #### INSULIN #### [facility] ,Vitamin D+Metabolites [Mass/volume] in Serum or PlasmaOrdered By: Jesus Smithpiedad on 92-23-8364Kmnljup D+Metabolites [Mass/Vol]31.9 ng/dK53-512DkepclokjCleveland Clinic Children'S Hospital For RehabilitationComment on above:VITAMIN D STATUS 25(OH)VITAMIN D RANGE (ng/mL) Deficient <20 Insufficient 20 to <52Hudgndldks52 to 100Reference: Anum Berry, Brynn APARICIO, et al. Evaluation,treatment, and prevention of vitamin D deficiency; an Endocrine Society clinical practice guideline. JCEM. 2010; 96(7):1911-30.LILIAOVon 78-07-0935UEKHNnnild Visit (NSCAMN) KOURTNEY NOVAK ([id number]) 1975 F Date Time Provider Department 03/15/25 [...] No Does patient want to see a Networking Specialist? No (yes to any of above refer [...] and [facility] [place], [facility] CC: Patient Care Team: Jesus Gonzalez [...] changes. PLAN: - Send a picture in [place] on Thursday. - Bactrim DS x 5 [...] mg tablet pioglitazone (A (more content not included)...[facility] 12-37-5482DTEALuhcdvwwc (NSCAMN) KOURTNEY NOVAK ([id number]) 1975 F Date Time Provider Department 03/08/25 SHAKILA PHILLIPS [facility] During your visit today, we recorded [...] 02/22/2025 Encounter Status:Closed by SHAKILA PHILLIPS on 03/08/25[facility] 12-14-8594LFKLMGNSxoga Visit (NSCAMN) KOURTNEY NOVAK ([id number]) 1975 F Date Time Provider Department 03/06/25 10:30 AM SHAKILA PHILLIPS [facility] During your visit today, we recorded [...] No Does patient want to see a Networking Specialist? No (yes to any of above refer [...] request and reach out to her through [employer] with a reply. Shakila Phillips RN, Assembler Metal Furniture Allergies As of Date: 03/06/2025 (No Known [...] capsule Take 24 mcg (more content not included)...NormalSt. Elizabeth HospitalPNon 90-46-9935SBYAAoqkurolz (NSCAMN) KOURTNEY NOVAK ([id number]) 1975 F Date Time Provider Department 02/23/25 SHAKILA PHILLIPS [facility] During your visit today, we recorded [...] Reviewed med list and sent patient a [employer]ra[employer] message for alternating Ibuprofen and Tylenol for headache/pain as needed Confirmed postop appointments Patient was made aware to reach out for questions/ concerns/updates. Shakila Phillips RN, Assembler Metal Furniture Allergies As of Date: 02/23/2025 (No Known [...] 02/22/2025 Encounter Status:Closed by SHAKILA PHILLIPS on 02/23/25[facility] 48-89-7069QDBTSS HEALTHHNO ID: [id number] Author: ANNALISA ENRIQUEZ Chaplain Service: Spiritual Care Author Type: Mechanical Developer [employer] Type: Allied Health Filed: 02/22/2025 15:39 Note Text: SPIRITUALCARE Spiritual Care Visit- Brief Note Name: Kourtney Novak Date: February 22, 2025 Notes: The fuel agent met with the patient's family at the bedside, introducing himself and providing information about the availability of spiritual care services. The patient expressed gratitude for the visit but declined any support for the moment. Follow-up will be provided as circumstances allow. [place] further [place] [phone]. Mechanical Developer [employer] services are available 06/04. SIGNATURE: Chaplain Hiro PATIENT NAME: Kourtney Novak DATE: February 22, 2025 TIME: 3:39 PM This is an electronically created document. IF PRINTED, PLEASE DO NOT REMOVE FROM THE CHART OR MODIFY PRINTED COPY.Normal [facility] [id number] ID: [id number] Author: ERIK PINEDA MD Service: Neurosurgery Author [...] M.D. - Office PCP: Jesus Gonzalez MD [phone] Treatment Team: Attending Provider: Erik Pineda MD [...] The patient was electively admitted to the [facility]. After being optimized for surgery by [...] The patient was then transferred up to [place] [address]/[id number] hospital room for postoperative management. Patient was [...] Primary Emergency Contact: Christiano Saini Address: [address] [id number] [facility] Mobile Relation: Son Secondary Emergency Contact: Laith Saini Address: [address] Mobile Relation: Son ALLERGIES: ALLERGIES No Known Allergies HOME MEDICATIONS: Medication List START taking these medications acetaminophen 325 mg tablet Commonly known as: TYLENOL 2 tablets by ORAL/FEEDING TUBE rou (more content not included)...[facility] NTon 39-39-5786HNSRHFL NTHNO ID: [id number] Author: OLIVIA WOLFF, PT Service: Physical Therapy Author Type: Physical Therapist Type: Therapy (PT/OT/Speech/Resp) Filed: 02/22/2025 13:12 Note Text: PHYSICAL THERAPY MISSED VISIT SERVICE DATE: 02/22/2025 SERVICE TIME: 1140 ROOM: [place] [address] Patient not seen due to Declined to Participate. Pt denies concerns for home going, declines stair training before d/c. No further acute PT needs, all concerns addressed. PT to sign off. 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 Denies falls. Lives with adult [...] (ADL) TREATMENT INTERVENTIONS Evaluation, Self Long-Term Management (88216) Timed Code Treatment (minutes): 8 Skilled Treatment Time (minutes): 23 TRAINING AND EDUCATION PROVIDED Activity Adaptation/Compensatory Strategies, Benefits of In-Hospital Mobility, Disease Specific Education, Discharge Planning, Expected Functional Level, Functional Mobility Involving ADLs, Lower Extremity Dressing, Pain Management, Precautions/Restrictions, Role of Occupational Therapy, Standing Balance to Improve School[employer] with ADLs/Self-Care, Transfer - Sit to Stand, [...] Novak DATE: February 22, 2025 TIME: 11:36 AMNormalWyandot Memorial Hospital 85-85-4191NYCREL HEALTHHNO ID: [id number] Author: TIM ALTAMIRANO Student Service: Spiritual Care [...] FROM THE CHART OR MODIFY PRINTED COPY.Normal [facility] CenterHNO ID: [id number] Author: TRIPP DALLAS RT(R) Service: Radiology Author Type: Spring Bender Type: Allied Health Filed: 02/21/2025 10:15 Note [...] PATIENT PRESENTS WITH AN IMPLANTABLE OR ATTACHED ELECTRIC MOTOR AND GENERATOR ASSEMBLER: No RADIOLOGY DEPARTMENT: MR; Exam(s) Completed: Head: Routine Brain. Lavender Administered: Yes PERIPHERAL IV DATA: Inpatient: see [facility] documentation SIGNED BY: RT Kenneth(R) February 21, 2025 9:22 AMNormalAvita Health System [facility] metabolic 2000 panel on 56-92-1723Unocx gap [Moles/Vol]13 mmol/LNormal8-15[facility] Comment on above:Order Comment: Specimen Type: BLOOD SPECIMENOrdering Facility: [facility] Address:[address] [place] [address] Performed By: #### 31770-1 ####[facility] LABCLIA [id number] [place] [address] [place] Calcium [Mass/Vol]8.8 mg/dLNormal8.5-10.2CFirelands Regional Medical Center on above:Order Comment: Specimen Type: BLOOD SPECIMENOrdering Facility: [facility] Address:[address] [place], [place] [address]Performed By: #### 51410-7 ####[facility] LABCLIA [id number] [place] [address] [place] AMERICAChloride [Moles/Vol] 105 mmol/DJzweos56-027RukiwlukhMartins Ferry Hospital on above:Order Comment: Specimen Type: BLOOD SPECIMENOrdering Facility: [facility] Address:[address] [place], [place] [address]Performed By: #### 72506-3 ####[facility]ANEZNCH [facility] [id number] [place] [address] [place] AMERICACO2 [Moles/Vol]20 mmol/YYzu88-25 [facility] on above:Order Comment: Specimen Type: BLOOD SPECIMENOrdering Facility: [facility] Address:[address] [place], [place] [address]Performed By: #### 62419-4 ####[facility] [id number] [place] [address] [place] [facility] HOSPITALCreatinine [Mass/Vol]0.75 mg/dLNormal0.58-0.96[facility] Comment on above:Order Comment: Specimen Type: BLOOD SPECIMENOrdering Facility: [facility] Address:[address] [place] [address] Performed By: #### 99507-2 ####[facility] [id number] [place] [address] [place] Creatinine and Glomerular filtration rate.predicted panel (S/P/Bld)99 mL/min/1.73m???Normal>=60[facility] on above:Order Comment: Specimen Type: BLOOD SPECIMENOrdering Facility: [facility] Address:[address] [place], [place] [address]Result Comment: Estimated Glomerular Filtration Rate (eGFR) is [...] not accurately reflect actual GFR.Performed By: #### 86796-3 ####[facility] [id number] [place] [address] [place] AMERICAGlucose [Mass/Vol]131 mg/dLHigh 74-99[facility] on above:Order Comment: Specimen Type: BLOOD SPECIMENOrdering Facility: [facility] Address:[address] [place] [id number] Comment: The [place] Diabetes [employer] (ADA) provides guidance for cutoff [...] Standards of Medical Care in Diabetes 2016, [place] [employer]. Diabetes Care. 2016.39(Suppl 1).Performed By: #### 35024-5 ####[facility] LABIA [id number] [place] [address] [place] AMERICAPotassium [Moles/Vol]4.2 mmol/L Normal3.7-5.1CProtestant HospitalComment on above:Order Comment: Specimen Type: BLOOD SPECIMENOrdering Facility: [facility] Address:[address] [place], [place] [address]Performed By: #### 90430-7 ####[facility] LABIA [id number] [place] [address] [place] AMERICASodium [Moles/Vol]138 mmol/HCqjakb886-224ScdnbhazuCleveland Clinic FoundationComment on above:Order Comment: Specimen Type: BLOOD SPECIMENOrdering Facility: [facility] Address:[address] [place], [place] [address]Performed By: #### 26161-9 ####[facility] LABIA [id number] [place] [address] [place] AMERICAUrea nitrogen [Mass/Vol]8 mg/dLNormal7-21[facility] Comment on above:Order Comment: Specimen Type: BLOOD SPECIMENOrdering Facility: [facility] Address:[address] [place] [address] Performed By: #### 05814-8 ####[facility] LABCLIA [id number] [place] [address] [place] CBC W Auto Differential panel (Bld)on 99-68-4469Hhbgsphbu (Bld) [#/Vol]10*3/uL Normal<0.11CFirelands Regional Medical Center on above:Order Comment: Specimen Type: BLOOD SPECIMENOrdering Facility: [facility] Address:[address] [place], [place] [address]Performed By: #### 18225-1 ####[facility] LABCLIA [id number] [place] [address] [place] AMERICABasophils/100 WBC (Bld)0.1 %NormalMartins Ferry Hospital on above:Order Comment: Specimen Type: BLOOD SPECIMENOrdering Facility: [facility] Address:[address] [place], [place] [address]Performed By: #### 66021-0 ####[facility] LABCLIA [id number] [place] [address] [place] Differential cell count method Nom (Bld)AutoNormalClevelAtrium Health Stanly Comment on above:Order Comment: Specimen Type: BLOOD SPECIMENOrdering Facility: [facility] Address:[address] [place] [address] Performed By: #### 56807-0 ####[facility] LABCLIA [id number] [place] [address] [place] Eosinophils (Bld) [#/Vol]10*3/uLNormal<0.46[facility] on above:Order Comment: Specimen Type: BLOOD SPECIMENOrdering Facility: [facility] Address:[address] [place], [place] [address]Performed By: #### 01798-6 ####[facility] LABCLIA [id number] [place] [address] [place] AMERICAEosinophils/100 WBC (Bld)0.0 %NormalMartins Ferry Hospital on above:Order Comment: Specimen Type: BLOOD SPECIMENOrdering Facility: [facility] Address:[address] [place], [place] [address]Performed By: #### 55699-6 ####[facility]ALTHIA [id number] [place] [address] [place] AMERICAErythrocyte distribution width (RBC) [Ratio]13.2 %Pbqcpm92.5-15.0[facility] on above: Order Comment: Specimen Type: BLOOD SPECIMENOrdering Facility: [facility] Address:[address] [place], [place] [address]Performed By: #### 57947- 8 ####[facility] [id number] [address], [place] [address] [place] AMERICAHematocrit (Bld) [Volume fraction]34.6 %Low36.0-46.0[facility] on above:Order Comment: Specimen Type: BLOOD SPECIMENOrdering Facility: [facility] Address:[address] [place], [place] [address]Performed By: #### 19322- 8 ####[facility]ALTHIA [id number] [address] STATES OF AMERICAHemoglobin (Bld) [Mass/Vol]11.2 g/dLLow11.5-15.5CFirelands Regional Medical Center on above:Order Comment: Specimen Type: BLOOD SPECIMENOrdering Facility: [facility] Address:[address] [place], [place] [address]Performed By: #### 06961-8 ####[facility] [id number] [place] [address] [place] AMERICAImmature granulocytes (Bld) [#/Vol]0.05 10*3/uLNormal<0.10[facility] on above:Order Comment: Specimen Type: BLOOD SPECIMENOrdering Facility: [facility] Address:[address] [place], [place] [address]Performed By: #### 16562- 8 ####[facility] LABCLIA [id number] [place] [address] [place] AMERICAImmature granulocytes/100 WBC (Bld)0.4 %NormalMartins Ferry Hospital on above:Order Comment: Specimen Type: BLOOD SPECIMENOrdering Facility: [facility] Address:[address] [place], [place] [address]Performed By: #### 97816-1 ####[facility] LABIA [id number] [place] [address] [place] AMERICALymphocytes (Bld) [#/Vol]0.87 10*3/uLLow1.00-4.00[facility] on above:Order Comment: Specimen Type: BLOOD SPECIMENOrdering Facility: [facility] Address:[address] [place], [place] [address]Performed By: #### 18663-4 ####[facility] LABIA [id number] [place] [address] [place] AMERICALymphocytes/100 WBC (Bld)6.8 % NormalMartins Ferry Hospital on above:Order Comment: Specimen Type: BLOOD SPECIMENOrdering Facility: [facility] Address:[address] [place], [place] [address]Performed By: #### 80834-2 ####[facility] LABIA [id number] [place] [address] [place] AMERICAMC (RBC) [Entitic mass]29.7 ysWrousy64.0-34.0[facility] on above:Order Comment: Specimen Type: BLOOD SPECIMENOrdering Facility: [facility] Address:[address] [place], [place] [address]Performed By: #### 95835-8 ####[facility] LABIA [id number] [place] [address] [place] MCHC (RBC) [Mass/Vol]32.4 g/eHCcceik69.5-36.0[facility] on above:Order Comment: Specimen Type: BLOOD SPECIMENOrdering Facility: [facility] Address:[address] [place] [address] Performed By: #### 04202-2 ####[facility] LABIA [id number] [place] [address] [place] MCV (RBC) [Entitic vol]91.8 iHHcpfon23.0-100.0[facility] on above:Order Comment: Specimen Type: BLOOD SPECIMENOrdering Facility: [facility] Address:[address] [place] [address] Performed By: #### 56577-8 ####[facility] LABIA [id number] [place] [address] [place] Monocytes (Bld) [#/Vol]0.94 10*3/uLHigh<0.87[facility] on above:Order Comment: Specimen Type: BLOOD SPECIMENOrdering Facility: [facility] Address:[address] [place], [place] [address]Performed By: #### 44375-5 ####[facility] LABIA [id number] [place] [address] [place] AMERICAMonocytes/100 WBC (Bld)7.3 %NormalMartins Ferry Hospital on above:Order Comment: Specimen Type: BLOOD SPECIMENOrdering Facility: [facility] Address:[address] [place], [place] [address]Performed By: #### 52039-5 ####[facility] LABIA [id number] [place] [address] [place] AMERICANeutrophils (Bld) [#/Vol]10.95 10*3/uLHigh1.45-7.50[facility] on above:Order Comment: Specimen Type: BLOOD SPECIMENOrdering Facility: [facility] Address:[address] [place], [place] [address]Performed By: #### 39277-1 ####[facility] LABCLIA [id number] [place] [address] [place] AMERICANeutrophils/100 WBC (Bld)85.4 % NormalOhio State University Wexner Medical Centerment on above:Order Comment: Specimen Type: BLOOD SPECIMENOrdering Facility: [facility] Address:[address] [place], [place] [address]Performed By: #### 46025-4 ####[facility] LABCLIA [id number] [place] [address] [place] AMERICANucleated RBC (Bld) [#/Vol]10*3/uLNormal<0.01[facility] on above:Order Comment: Specimen Type: BLOOD SPECIMENOrdering Facility: [facility] Address:[address] [place], [place] [address]Performed By: #### 90978-6 ####[facility] LABCLIA [id number] [place] [address] [place] Nucleated RBC/100 WBC (Bld) [Ratio]0.0 /100 WBCNormalClevelAtrium Health Stanly Comment on above:Order Comment: Specimen Type: BLOOD SPECIMENOrdering Facility: [facility] Address:[address] [place] [address] Performed By: #### 62382-3 ####[facility] LABCLIA [id number] [place] [address] [place] Platelet mean volume (Bld) [Entitic vol]10.5 fLNormal9.0-12.7ClevelOhioHealth Berger Hospital on above:Order Comment: Specimen Type: BLOOD SPECIMENOrdering Facility: [facility] Address:[address] [place], [place] [address]Performed By: #### 32753-5 ####[facility] LABCLIA [id number] [place] [address] [place] Platelets (Bld) [#/Vol]309 10*3/tFFfldpq700-931ZrbvfiaqyMartins Ferry Hospital on above:Order Comment: Specimen Type: BLOOD SPECIMENOrdering Facility: [facility] Address:[address] [place] [address] Performed By: #### 90579-2 ####[facility] [id number] [place] [address] [place] RBC (Bld) [#/Vol]3.77 10*6/uLLow3.90-5.20[facility] on above:Order Comment: Specimen Type: BLOOD SPECIMENOrdering Facility: [facility] Address:[address] [place], [place] [address]Performed By: #### 88643-1 ####[facility] [id number] [address] STATES OF MER[facility] TIFFIN HOSPITALWBC (Bld) [#/Vol]12.82 10*3/uLHigh3.70-11.00[facility] on above:Order Comment: Specimen Type: BLOOD SPECIMENOrdering Facility: [facility] Address:[address] [place], [place] [address]Performed By: #### 32092-9 ####[facility] [id number] [place] [address] [facility] OF AMERICAMRI BRAIN WO/W IVCONon 02-21-2025 MRI BRAIN WO/W IVCON* * *Final Report* * * DATE OF EXAM: Feb 21 2025 11:17AM QBM 0295 - MRI BRAIN WO/W IVCON / 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 No residual mass or pathologic enhancement. Company Doctor: [employer] Transcribe Date/Time: Feb 21 2025 11:17A Dictated by : CHIKA RUBY MD This examination was interpreted and the report reviewed and electronically signed by: TOMAS TAMEZ MD on Feb 21 2025 11:58AM EST [id number] Memorial Hospital PROGon 02-21-2025 NURSING PROGHNO ID: [id number] Author: MICHELLE BAEZ RN Service: Nursing Author [...] PERIPHERAL IV ACCESS: Inpatient see LDA documentation ANXIOLYSIS/ANESTHESIA: Ativan 1 mg IV. Ok to give per radiologist Dr Neri PATIENT DISCHARGED TO: Patient transferred to 3. Report called to RN. SIGNED BY: Michelle Baez RN February 21, 2025 10:07 [facility] HospitalNALBAING PROGHNO ID: [id number] Author: MICHELLE BAEZ RN Service: Nursing Author [...] Novak DATE: February 21, 2025 TIME: 9:09 [facility] HospitalNUTRITIONon [id number] ID: [id number] Author: ZULEMA SUMMERS RD Service: Nutrition Therapy Author Type: Registered Dietitian Type: Nutrition Filed: 02/21/2025 17:21 Note Text: NUTRITION THERAPY SCREEN NOTE SERVICE DATE: 02/21/2025 SERVICE TIME: Start Time: 1305 Care Plan: Continue current diet (carb controlled) Refer to: Bond Clerk to Follow Discharge Recommendations: Diet Diet: carb [...] Question: Carbohydrate Control Answer: CONSISTENT CARBOHYDRATE 02/20/25 7342 Anthropometrics: Height: 165.1 cm (5' 5 ) [...] (mins): 3 SIGNATURE:Zulema Summers RDN, LD, MS, [facility] PATIENT NAME: Kourtney Novak DATE: February 21, 2025 TIME: 5:20 PMNormalCleveland Clinic FoundationTHERAPY NTon [id number] NT HNO ID: [id number] Author: OLIVIA WOLFF, PT Service: Physical Therapy Author Type: Physical Therapist Type: Therapy (PT/OT/Speech/Resp) Filed: 02/21/2025 12:40 Note Text: Physical Therapy Evaluation Summary SERVICE DATE: 02/21/2025 SERVICE TIME: 1145 to 1208 ROOM: [place] [address] PT 6 Clicks Score: 20 DISCHARGE RECOMMENDATIONS [...] 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 Denies falls. Lives with adult son and brother who both work and are IND in the home. SUBJECTIVE Agreeable to PT THERAPY DIAGNOSIS Reduced mobility-other TREATMENT INTERVENTIONS Evaluation, Gait Training (51025) Timed Code Treatment (minutes): 8 Skilled Treatment [...] DATE: February 21, 2025 TIME: 12:40 PMNormalSt. Charles Hospital POSTPROC EVALon 02-20-2025 ANES POSTPROC EVALHNO ID: [id number] Author: ZARA RAMACHANDRAN DO Service: ? Author Type: Anesthesiologist Type: Anesthesia Postprocedure Evaluation Filed: 02/20/2025 18:52 Note Text: POST ANESTHESIA EVALUATION NOTE : 1975 Procedure Summary Date: 02/20/25 Room / Location: [address] [facility] Anesthesia Start: 1221 Anesthesia Stop: 1641 [...] February 20, 2025 TIME: 6:17 PM CSN: [id number] Medical Specialty [facility], Inc PRE-OPon [id number] PRE-OPHNO ID: [id number] Author: ZARA RAMACHANDRAN DO Service: ? Author Type: Anesthesiologist Type: Anesthesia Preprocedure Evaluation Filed: 02/20/2025 12:11 Note Text: ANESTHESIOLOGY DAY OF SURGERY NOTE : 1975 Procedure Information Date/Time: 02/20/25 1245 Procedures: ORBITOCRANIAL TO ANT CRAN FOSSA W/ SUPRAORB RIDGE OSTEOTOMY AND ELEV FRONTANDTEMP LOBE (Right: Brain) RESECTION LESION BASE OF ANTERIOR CRANIAL FOSSA INTRADURAL W/ DURAL REPAIR (Right: Brain) Location: [facility] Surgeons: Erik Pineda MD [...] February 20, 2025 TIME: 12:10 PM CSN: [id number]t HospitalARTERIAL BLOOD GASES WITH IONIZED MAGNESIUMon 84-16-4134Vkdj deficit (BldA) [Moles/Vol]-4 mmol/XVgm-0-3YghduxnvbCleveland Clinic FoundationComment on above:Order Comment: Specimen Type: ARTERIAL BLOOD SPECIMENOrdering Facility: [facility] Address: [address] [place], [place] [address]Performed By: #### ALLMG ####[facility] LABIA [id number] [address] STATES OF AMERICACalcium.ionized (Bld) [Mass/Vol] 1.11 mmol/LNormal1.08-1.30[facility] FoundationComment on above:Order Comment: Specimen Type: ARTERIAL BLOOD SPECIMENOrdering Facility: [facility]Address: [address] [place], [place] [address]Performed By: #### ALLMG ####[facility] LABIA [id number] [address] STATES OF AMERICACalcium.ionized adjusted to pH 7.4 (BldA) [Moles/Vol]1.12 mmol/LNormal1.08-1.30[facility] Comment on above:Order Comment: Specimen Type: ARTERIAL BLOOD SPECIMENOrdering Facility: [facility]Address: [address] [place], [place] [address]Performed By: #### ALLMG ####[facility] LABIA [id number] [place] [address] [place] Carboxyhemoglobin (BldA) [Mass fraction]0.6 %Normal0.0-2.0[facility] on above:Order Comment: Specimen Type: ARTERIAL BLOOD SPECIMENOrdering Facility: [facility]Address: [address] [place], [place] [address]Ywfvav Comment: Carboxyhemoglobin Reference Range for Smokers: 2.0-8.0%Performed By: #### ALLMG ####[facility] LABCLIA [id number] [address] [address] [place] AMERICACO2 (Bld) [Partial pressure]33 mm MbCjz82-38MaqkobtfjCleveland Clinic Foundation Comment on above:Order Comment: Specimen Type: ARTERIAL BLOOD SPECIMENOrdering Facility: [facility]Address: [address] [place], [place] [address]Performed By: #### ALLMG ####[facility] LABCLIA [id number] [address] [place] [address] [place] CO2 adjusted to patient's actual temperature (Bld) [Partial pressure]33 mmHgLow 36-46[facility] on above:Order Comment: Specimen Type: ARTERIAL BLOOD SPECIMENOrdering Facility: [facility]Address: [address] [facility]ENTERMig[address] [place] [id number] By: #### ALLMG ####[facility] LABCLIA [id number] [address] [place] [address] [place] AMERICAGlucose [Mass/Vol]113 mg/dLOwra51-597PaasrsdlzMartins Ferry Hospital on above:Order Comment: Specimen Type: ARTERIAL BLOOD SPECIMENOrdering Facility: [facility]Address: [address] [place], [place] [address]Ienwxzuxn By: #### ALLMG ####[facility] LABIA [id number] [address] [place] [address] [place] AMERICAHCO3 (Bld) [Moles/Vol]20 mmol/KShf13-39EnnoetrocMartins Ferry Hospital on above:Order Comment: Specimen Type: ARTERIAL BLOOD SPECIMENOrdering Facility: [facility]Address: [address] [place], [place] [address]Performed By: #### ALLMG ####[facility] LABIA [id number] [place] [address] [place] Hematocrit (Bld) [Volume fraction]32.7 %Low36.0-46.0[facility] Comment on above:Order Comment: Specimen Type: ARTERIAL BLOOD SPECIMENOrdering Facility: [facility]Address: [address] [place] [id number] By: #### ALLMG ####[facility] LABIA [id number] [place] [address] [place] Hemoglobin (Bld) [Mass/Vol]10.6 g/dLLow11.5-15.5CProtestant Hospital Comment on above:Order Comment: Specimen Type: ARTERIAL BLOOD SPECIMENOrdering Facility: [facility]Address: [address] [place], [place] [address]Performed By: #### ALLMG ####[facility] LABIA [id number] [place] [id number] [place] Lactate [Moles/Vol]1.0 mmol/LNormal0.5-2.2ClevelAtrium Health StanlyComment on above:Order Comment: Specimen Type: ARTERIAL BLOOD SPECIMENOrdering Facility: [facility]Address: [address] [place] [address] Performed By: #### ALLMG ####[facility] LABIA [id number] [place] [address] [place] AMERICAMagnesium [Moles/Vol]0.42 mmol/LLow0.45-0.60[facility] Clinic FoundationComment on above: Order Comment: Specimen Type: ARTERIAL BLOOD SPECIMENOrdering Facility: [facility]Address: [address] [facility]ENTERMig[address] [place] [id number] Performed By: #### ALLMG ####[facility] LABIA [id number] [address] [address] [place] AMERICAMethemoglobin (Bld) [Mass fraction]2.1 %High0.0-1.5CFirelands Regional Medical Center on above: Order Comment: Specimen Type: ARTERIAL BLOOD SPECIMENOrdering Facility: [facility]Address: [address] [place] [address] Performed By: #### ALLMG ####[facility] LABCLIA [id number] [address] [address] [place] AMERICAOxygen (Bld) [Partial pressure]208 mm NhVker44-79MehqtuftqMartins Ferry Hospital on above: Order Comment: Specimen Type: ARTERIAL BLOOD SPECIMENOrdering Facility: [facility]Address: [address] [place] [id number] Performed By: #### ALLMG ####[facility] LABCLIA [id number] [address] [address] [place] AMERICAOxygen adjusted to patient's actual temperature (Bld) [Partial pressure]208 lkWvAmxq85-34 [facility] on above:Order Comment: Specimen Type: ARTERIAL BLOOD SPECIMENOrdering Facility: [facility]Address: [address] [place] [id number] By: #### ALLMG ####[facility] LABCLIA [id number] [address] [address] [place] STATES OF AMERICAOxyhemoglobin (BldA) [Mass fraction]96 %Normal 95-98[facility] on above:Order Comment: Specimen Type: ARTERIAL BLOOD SPECIMENOrdering Facility: [facility]Address: [address] [place] [id number] By: #### ALLMG ####[facility] LABCLIA [id number] [address] [address] [place] AMERICApH (Bld)7.41 [pH]Normal7.35-7.45[facility] on above:Order Comment: Specimen Type: ARTERIAL BLOOD SPECIMENOrdering Facility: [facility]Address: [address] [place], [place] [address]Performed By: #### ALLMG ####[facility] LABCLIA [id number] [address] [place] [address] [place] AMERICApH adjusted to patient's actual temperature (Bld)7.86Qhhtvw0.35-7.45 [facility] on above:Order Comment: Specimen Type: ARTERIAL BLOOD SPECIMENOrdering Facility: [facility]Address: [address] [facility] CENTERMiguel [place], [place] [address]Performed By: #### ALLMG ####[facility] LABCLIA [id number] [address] [place] [address] [place] AMERICAPotassium [Moles/Vol]4.2 mmol/LNormal3.5-5.0 [facility] on above:Order Comment: Specimen Type: ARTERIAL BLOOD SPECIMENOrdering Facility: [facility]Address: [address] [place] [id number] By: #### ALLMG ####[facility] LABCLIA [id number] [address] [place] [address] [place] AMERICASodium [Moles/Vol]137 mmol/RFrrotz391-200SsxntbfcxMartins Ferry Hospital on above:Order Comment: Specimen Type: ARTERIAL BLOOD SPECIMENOrdering Facility: [facility]Address: [address] [place], [place] [address]Ngfdbunxc By: #### ALLMG ####[facility] LABCLIA [id number] [address] [place] [address] [place] AMERICABase deficit (BldA) [Moles/Vol]-3 mmol/PItc-7-0LwbnjulofMartins Ferry Hospital on above:Order Comment: Specimen Type: ARTERIAL BLOOD SPECIMENOrdering Facility: [facility]Address: [address] [place] [id number] By: #### ALLMG ####[facility] LABCLIA [id number] [address] [place] [address] [place] AMERICACalcium.ionized (Bld) [Mass/Vol]1.20 mmol/LNormal1.08-1.30[facility] on above:Order Comment: Specimen Type: ARTERIAL BLOOD SPECIMENOrdering Facility: [facility]Address: [facility] [place], [place] [address]Performed By: #### ALLMG ####[facility] LABCLIA [id number] [address] AMERICACalcium.ionized adjusted to pH 7.4 (BldA) [Moles/Vol]1.19 mmol/LNormal 1.08-1.30[facility] on above:Order Comment: Specimen Type: ARTERIAL BLOOD SPECIMENOrdering Facility: [facility] Address: [address] [place], [place] [address]Performed By: #### ALLMG ####[facility] LABCLIA [id number] [facility]D [facility]OSPITALK [address]ETCarboxyhemoglobin (BldA) [Mass fraction]1.0 %Normal0.0-2.0[facility] on above:Order Comment: Specimen Type: ARTERIAL BLOOD SPECIMENOrdering Facility: [facility]Address: [address] [place], [place] [address]Result Comment: Carboxyhemoglobin Reference Range for Smokers: 2.0-8.0%Performed By: #### ALLMG ####[facility] LABCLIA [id number] [facility]D AVENUESUTTER [facility], SACRAMENTOK L [address] [place] [address] STATES OF AMERICACO2 (Bld) [Partial pressure]37 mm RdRzrfuu25-42JkfbqdpryMartins Ferry Hospital on above:Order Comment: Specimen Type: ARTERIAL BLOOD SPECIMENOrdering Facility: [facility] Address: [address] [place], [place] [address]Performed By: #### ALLMG ####[facility] LABCLIA [id number] [facility]ENTERD AVENUEDESK L [address] [place] [address] [place] AMERICACO2 adjusted to patient's actual temperature (Bld) [Partial pressure]37 kqHlRoiygw58-40HnftzvkcaCleveland Clinic Foundation Comment on above:Order Comment: Specimen Type: ARTERIAL BLOOD SPECIMENOrdering Facility: [facility]Address: [address] [place], [place] [address]Jsczzhguj By: #### ALLMG ####[facility] LABCLIA [id number] [address] [place] [address] [place] Glucose [Mass/Vol]114 mg/bHZhki35-148CjwofigmhBlanchard Valley Health System Bl[facility] Valley HospitalCommymichigan medical center west branch on above: Order Comment: Specimen Type: ARTERIAL BLOOD SPECIMENOrdering Facility: [facility]Address: [address] [place] [address] Performed By: #### ALLMG ####[facility] LABCLIA [id number] [address] [address] [place] OF AMERICAHCO3 (Bld) [Moles/Vol]21 mmol/AEpp94-44LivtclltaCleveland Clinic FoundationComment on above:Order Comment: Specimen Type: ARTERIAL BLOOD SPECIMENOrdering Facility: [facility]Address: [address] [place], [place] [address]Ymrctkeey By: #### ALLMG ####[facility] LABCLIA [id number] [address] [address] [place] OF AMERICAHematocrit (Bld) [Volume fraction]35.4 %Low36.0-46.0Cleveland Clinic FoundationCommymichigan medical center west branch on above:Order Comment: Specimen Type: ARTERIAL BLOOD SPECIMENOrdering Facility: [facility]Address: [address] [place], [place] [address]Pihbbiwql By: #### ALLMG ####[facility] LABCLIA [id number] [address] [address] [place] AMERICAHemoglobin (Bld) [Mass/Vol]11.5 g/zJBezany62.5-15.5CProtestant HospitalCommymichigan medical center west branch on above:Order Comment: Specimen Type: ARTERIAL BLOOD SPECIMENOrdering Facility: [facility]Address: [address] [place], [place] [address]Performed By: #### ALLMG ####[facility] LABCLIA [id number] [place] [address] [place] OF AMERICALactate [Moles/Vol]0.9 mmol/L Normal0.5-2.2CFirelands Regional Medical Center on above:Order Comment: Specimen Type: ARTERIAL BLOOD SPECIMENOrdering Facility: [facility] Address: [address] [place], [place] [address]Performed By: #### ALLMG ####[facility] LABCLIA [id number] [place] [address] [place] AMERICAMagnesium [Moles/Vol]0.72 mmol/L High0.45-0.60[facility] on above:Order Comment: Specimen Type: ARTERIAL BLOOD SPECIMENOrdering Facility: [facility] Address: [address] [place], [place] [address]Performed By: #### ALLMG ####[facility] LABCLIA [id number] [place] [address] [place] AMERICAMethemoglobin (Bld) [Mass fraction]1.6 %High0.0-1.5CFirelands Regional Medical Center on above:Order Comment: Specimen Type: ARTERIAL BLOOD SPECIMENOrdering Facility: [facility]Address: [address] [place], [place] [address]Performed By: #### ALLMG ####[facility] LABCLIA [id number] [facility] [place] [address] [place] AMERICAOxygen (Bld) [Partial pressure] 299 mm JwHier25-99GmzxinikbMartins Ferry Hospital on above:Order Comment: Specimen Type: ARTERIAL BLOOD SPECIMENOrdering Facility: [facility]Address: [facility] [place], [place] [address]Performed By: #### ALLMG ####[facility] LABCLIA [id number] [place] [address] [place] AMERICAOxygen adjusted to patient's actual temperature (Bld) [Partial pressure]299 xsEbHhru19-58YphwmdjfdMartins Ferry Hospital on above:Order Comment: Specimen Type: ARTERIAL BLOOD SPECIMENOrdering Facility: [facility]Address: [address] [place], [place] [address]Kiojdsfgu By: #### ALLMG ####[facility] LABCLIA [id number] [address] [place] [address] [place] AMERICAOxyhemoglobin (BldA) [Mass fraction]97 %Mlnjmk83-83EfqktgrasMartins Ferry Hospital on above:Order Comment: Specimen Type: ARTERIAL BLOOD SPECIMENOrdering Facility: [facility]Address: [address] [place] [id number] By: #### ALLMG ####[facility] LABCLIA [id number] [address] [place] [address] [place] AMERICApH (Bld)7.38 [pH]Normal7.35-7.45[facility] on above:Order Comment: Specimen Type: ARTERIAL BLOOD SPECIMENOrdering Facility: [facility]Address: [address] [place] [address] Performed By: #### ALLMG ####[facility] LABCLIA [id number] [address] [place] [address] [place] AMERICApH adjusted to patient's actual temperature (Bld)7.46Dwidsv1.35-7.45[facility] Comment on above:Order Comment: Specimen Type: ARTERIAL BLOOD SPECIMENOrdering Facility: [facility]Address: [address] [place], [place] [address]Bworjahsg By: #### ALLMG ####[facility] LABCLIA [id number] [address] [place] [address] [place] Potassium [Moles/Vol]4.2 mmol/LNormal3.5-5.0[facility] on above:Order Comment: Specimen Type: ARTERIAL BLOOD SPECIMENOrdering Facility: [facility]Address: [address] [place] [address] Performed By: #### ALLMG ####[facility] LABCLIA [id number] [address] [address] [place] AMERICASodium [Moles/Vol]139 mmol/UJoibry494-900KyftuxrfhCleveland Clinic FoundationComment on above: Order Comment: Specimen Type: ARTERIAL BLOOD SPECIMENOrdering Facility: [facility]Address: [address] [place] [address] Performed By: #### ALLMG ####[facility] LABCLIA [id number] [address] [address] [place] OF AMERICABasic metabolic 2000 panelon 30-43-3638Knkfe gap [Moles/Vol]12 mmol/LNormal8-15 [facility] on above:Order Comment: Specimen Type: BLOOD SPECIMENOrdering Facility: [facility] Address:[address] [place], [place] [address]Performed By: #### 70104-4 ####[facility] LABCLIA [id number] [address] [address] [place] AMERICACalcium [Mass/Vol]9.4 mg/dLNormal8.5-10.2CProtestant Hospital Comment on above:Order Comment: Specimen Type: BLOOD SPECIMENOrdering Facility: [facility] Address:[address] [place] [address] Performed By: #### 25084-9 ####[facility] LABCLIA [id number] [address] [address] [place] Chloride [Moles/Vol]105 mmol/IXibvrt74-333NephpsmuoMartins Ferry Hospital on above:Order Comment: Specimen Type: BLOOD SPECIMENOrdering Facility: [facility] Address:[address] [place], [place] [address]Performed By: #### 84650-0 ####[facility] LABCLIA [id number] [address] [address] [place] AMERICACO2 [Moles/Vol]20 mmol/GCme81-78RdovqynmcMartins Ferry Hospital on above:Order Comment: Specimen Type: BLOOD SPECIMENOrdering Facility: [facility] Address:[address] [place], [place] [address]Performed By: #### 11526-6 ####[facility] LABIA [id number] [place] [address] [place] AMERICACreatinine [Mass/Vol]0.90 mg/dLNormal0.58-0.96[facility] on above:Order Comment: Specimen Type: BLOOD SPECIMENOrdering Facility: [facility] Address:[address] [place], [place] [address]Performed By: #### 96843-3 ####[facility] LABIA [id number] [address] OF AMERICACreatinine and Glomerular filtration rate.predicted panel (S/P/Bld)80 mL/min/1.73m???Normal>=60[facility] on above:Order Comment: Specimen Type: BLOOD SPECIMENOrdering Facility: [facility] Address:[address] [place], [place] [address]Result Comment: Estimated Glomerular Filtration Rate (eGFR) is [...] not accurately reflect actual GFR.Performed By: #### 50612-1 ####[facility] LABIA [id number] [place] [address] [place] AMERICAGlucose [Mass/Vol]94 mg/dLNormal 74-99[facility] on above:Order Comment: Specimen Type: BLOOD SPECIMENOrdering Facility: [facility] Address:[address] [place], [place] [address]Result Comment: The [place] Diabetes Association (ADA) provides guidance for cutoff [...] Standards of Medical Care in Diabetes 2016, [place] Diabetes Association. Diabetes Care. 2016.39(Suppl 1).Performed By: #### 34377-6 ####[facility] LABCLIA [id number] [place] [address] [place] AMERICAPotassium [Moles/Vol]4.1 mmol/L Normal3.7-5.1CProtestant HospitalComment on above:Order Comment: Specimen Type: BLOOD SPECIMENOrdering Facility: [facility] Address:[address] [place], [place] [address]Performed By: #### 95052-2 ####[facility] LABIA [id number] [place] [address] [place] AMERICASodium [Moles/Vol]137 mmol/YAgfzsi204-738KlqohtbwgCleveland Clinic FoundationComment on above:Order Comment: Specimen Type: BLOOD SPECIMENOrdering Facility: [facility] Address:[address] [place], [place] [address]Performed By: #### 20878-9 ####[facility] LABIA [id number] [place] [address] [place] AMERICAUrea nitrogen [Mass/Vol]11 mg/dLNormal7-21[facility] Comment on above:Order Comment: Specimen Type: BLOOD SPECIMENOrdering Facility: [facility] Address:[address] [place] [address] Performed By: #### 25486-0 ####[facility] LABCLIA [id number] [address] OF [facility] OPERATIVE NOon 32-28-7205RVGTDJBYG NOHNO ID: [id number] Author: ERIK PINEDA MD Service: Neurosurgery Author Type: Physician Type: Operative Report Filed: 02/21/2025 09:26 Note Text: OPERATIVE/PROCEDURE REPORT LOG ID: [id number] SURGERY/PROCEDURE DATE: 02/20/2025 INCISION/PROCEDURE START TIME: 1:29 PM INCISION CLOSE/PROCEDURE END TIME: 4:07 PM SURGEON(S)/PROCEDURALIST(S) AND AGRICULTURAL INSPECTOR(S): Surgeons and Role: * Erik Pineda MD [...] the OR table. The neuronavigation system using [employer] was then registered and accuracy was confirmed using external anatomical landmarks and previous imaging in the PACS system. IV antibiotics, steroids, and Keppra were then administered. The patient was then prepped and draped in standard fashion for cranial surgery. A timeout was then performed in accordance with [facility] operative protocols. A right frontotemporal craniotomy [...] was then marked with a bone pencil. Winn holes were then placed in strategic places. Bony fragments were freed. The underlying dura was then stripped using a #3 [place]. Using a high speed air drill with [...] 02/20/2025 3:13 PM IMPLA (more content not included)...NormalCleveland Clinic FoundationPathology biopsy report Alexis (Tiss)on 69-30-3941GL DISCLAIMERNormTrumbull Regional Medical Centerment on above:Order Comment: Specimen Type: TISSUE SPECIMENOrdering Facility: [facility] Address: [address] [place], [place] [address]Result Comment: Laboratory Developed Test (LDT) Disclaimer: Performance characteristics of immunohistochemical, immunofluorescent, and chromogenic in-situ hybridization tests have been determined by the performing laboratory within [facility]'s [facility] Pathology and Laboratory Medicine Department ([facility], [facility][1], [facility], [facility], [facility], [facility], or [facility]) in a manner consistent with CLIA requirements. One or more of these tests may not have been cleared or approved by the FDA. [facility] is regulated under CLIA as qualified to perform high- complexity testing. These tests are used for clinical purposes. These should not be regarded asinvestigational or for research. Positive and negative controls stain appropriately.Performed By: #### 10166-0 ####[facility] LABCLIA [id number] [address]CASE REPORTNormHenry County Hospital on above:Order Comment: Specimen Type: TISSUE SPECIMENOrdering Facility: [facility] Address: [address] [place] [address]Aiidmb Comment: Surgical Pathology Report Case: [id number] Authorizing Provider: Erik Pineda MD Collected: 02/20/2025 03:13 PM Ordering Location: Admitting Received: 02/20/2025 04:45 PM Pathologist: Brody Olvera MD Specimen: Brain, Resection, right middle sphenoid wing tumorPerformed By: #### 55907-7 ####[facility] LABCLIA [id number] [address] [place] [address] [facility]FF[facility] HOSPITALCLINICAL HISTORYNormal [facility] on above:Order Comment: Specimen Type: TISSUE SPECIMENOrdering Facility: [facility] Address: [address] [place], [place] [address]Result Comment: Pre-op diagnosis: Intracranial meningioma (HCC) [D32.0] Preop testing [Z01.818]Performed By: #### 38463-2 ####[facility] LABIA [id number] [address] [place] [address] [facility]FF[facility] HOSPITALDIAGNOSIS COMMENTImmunohistochemical staining of the tumor with antibodies to SSTR2a and DE was performed on block A1. The tumor shows positive staining with both antibodies, consistent with the diagnosis. A Ki-67 index of approximately 2-3% is focally noted.NormalMartins Ferry Hospital on above:Order Comment: Specimen Type: TISSUE SPECIMENOrdering Facility: [facility] Address: [address] [place], [place] [address]Performed By: #### 45927-8 ####[facility] LABIA [id number] [address] [place] [address] [place] [facility] CAMPUSFINAL DIAGNOSISNormal [facility] on above:Order Comment: Specimen Type: TISSUE SPECIMENOrdering Facility: [facility] Address: [address] [place], [place] [address]Result Comment: A. Right middle sphenoid wing region, excision: - Morphologically consistent with meningothelial meningioma, WHO grade 1 at 1536 EDT Performed By: #### 52600-5 ####[facility] LABIA [id number] [address] [place] [address] [place] FINAL PERFORMING LABNormHenry County Hospital on above:Order Comment: Specimen Type: TISSUE SPECIMENOrdering Facility: [facility] Address: [address] [place], [place] [address]Result Comment: Diagnostic interpretation performed at: [facility], [address] [place] [address], [facility] Centerk [place] [address] CLIA# [id number] Dental Treatment Coordinator: JOANIE Bruceerformed By: #### 92259-4 ####[facility] LABIA [id number] [address] OF [facility] HOSPITALGROSS DESCRIPTIONNormalCProtestant Hospital Comment on above:Order Comment: Specimen Type: TISSUE SPECIMENOrdering Facility: [facility] Address: [address] [place], [place] [address]Result Comment: A. Brain, Resection Received in formalin, labeled as brain resection, right middle sphenoid wing tumor is a single bryant-brown irregular rubbery tissue measuring 2.1 x 1.3 x 0.5 cm. Sectioning reveals bryant-davidson homogenous cut surfaces. Totally submitted in cassettes A1-A2. CG February 21, 2025 10:13 AM Gross examination performed at [facility], [address] [place], [place] [address]Performed By: #### 45110-2 ####[facility] LABIA [id number] [address] Kathy [id number] (NSCAMN) KOURTNEY NOVAK ([id number]) 1975 F Date Time Provider Department 02/17/25 SHAKILA PHILLIPS [facility] During your visit today, we recorded the following information about you: Shakila Phillips, VENUS 02/17/2025 3:51 PM Signed Called the patient for pre-op instructions. Questions pertaining to hospital stay and after hospital discharge instructions were addressed. She was made aware to touch base after she gets discharged home for review of hospital discharge instructions and confirming postop follow up appts. Shakila Phillips RN, [employer] Allergies As of Date: 02/17/2025 (No Known [...] 02/14/2025 Encounter Status:Closed by SHAKILA PHILLIPS on 02/17/25NoLakeHealth Beachwood Medical CenterParis [id number] (PALORA) KOURTNEY NOVAK ([id number]) 1975 F Date Time Provider Department 02/15/25 MEHUL MARTIN During your visit today, we recorded the following information about you: Mehul Martin APRN.CNP 02/15/2025 8:15 AM Signed Please call patient. Lab did not draw Conabo, A1C, or BMP. Please have her go to closest [facility] lab to have them drawn. She can go to [facility] in [place] if that is best for her thank you. Thank you, MAMADOU Boyer Autumn, LPN 02/15/2025 8:22 AM Signed I called and spoke with patient. Relayed below message; denies questions at this time. Will go to [facility]. Barbara Rosenthal LPN February 15, 2025 8:22 AM Mehul Martin APRN.RELASTER 02/17/2025 4:16 PM Signed Lab still did [...] 02/14/2025 Encounter Status:Closed by BARBARA ROSENTHAL on 02/15/25NoCincinnati Children's Hospital Medical CenterCONFIR BLOOD TYPEon 12-85-3256TSZTOliwnjTnsupytbkGood Samaritan Hospital Comment on above:Order Comment: Specimen Type: BLOOD SPECIMENOrdering Facility: [facility] Address:[address] [place] [address] Performed By: #### CONABO ####CC MAIN BLOOD BANKCLIA [id number] [place] [address] [place] AMERICARh Nom (Bld)Negative NormalCleveland Clinic FoundationComment on above:Order Comment: Specimen Type: BLOOD SPECIMENOrdering Facility: [facility] Address:[address] [place], [place] [address]Performed By: #### CONABO ####[facility] BLOOD BANKIA [id number] [address] OF HMFQMQQXhK6w (Bld)on 67-69-6045Dnpyvck glucose Estimated from glycated hemoglobin (Bld) [Mass/Vol]108 mg/dLNormalCFirelands Regional Medical Center on above:Order Comment: Specimen Type: BLOOD SPECIMENOrdering Facility: [facility] Address:[address] [place], [place] [address]Result Comment: eAG: (Estimated average glucose) is a calculated value from HgbA1c and is publications sales representative of the average blood glucose level in the last 2-3 month period. Performed By: #### 31992-0 ####[facility] [id number] [address] STATES [facility] HbA1c (Bld) [Mass fraction]5.4 %Normal4.3-5.6CFirelands Regional Medical Center on above:Order Comment: Specimen Type: BLOOD SPECIMENOrdering Facility: [facility] Address:[address] [place], [place] [address]Result Comment: [place] Diabetes Association guidelines indicate that patients with HgbA1c in the range 5.7-6.4% are at increased risk for development of diabetes, and intervention by lifestyle modification may be beneficial. HgbA1c greater or equal to 6.5% is considered diagnostic of diabetes.Performed By: #### 28830-0 ####[facility] LABIA [id number] [place] [address] [facility] SYSTEMT SerPl-cCncon 27-74-8065VAY [Catalytic activity/Vol]27 U/LNormal7-38[facility] on above:Order Comment: Specimen Type: BLOOD SPECIMENOrdering Facility: [facility] Address:[address] [place], [place] [address]Performed By: #### 1742-6, 1919-8, 1987- ####[facility] LABIA [id number] [address] STATES [facility] HOSPITALAST SerPl-cCnc on 38-77-2315IRR [Catalytic activity/Vol]20 U/AXfhndl77-76WhexpnutzMartins Ferry Hospital on above:Order Comment: Specimen Type: BLOOD SPECIMENOrdering Facility: [facility] Address:[address] [place], [place] [address]Performed By: #### 1742-6, 1920-8, 1987- ####[facility] LABCLIA [id number] [facility]ENTERD AVENUEDESK [address]CBC panel Auto (Bld)on 63-70-7010Aseajdquktw distribution width (RBC) [Ratio]13.4 %Jdagmf83.5-15.0[facility] on above:Order Comment: Specimen Type: BLOOD SPECIMENOrdering Facility: [facility] Address:[address] [place], [place] [address]Performed By: #### 48662- 2, 4537-7 ####[facility] LABCLIA [id number] [facility] CENTERD AV ENUEDESK [address]LE[address] STREETHematocrit (Bld) [Volume fraction]39.2 %Kqvnkr31.0-46.0[facility] on above:Order Comment: Specimen Type: BLOOD SPECIMENOrdering Facility: [facility] Address:[address] [place], [place] [address]Performed By: #### 58946- 2, 4537-7 ####[facility] LABCLIA [id number] [facility] HOSPITALLID AV ENUEDESK [address]ETHemoglobin (Bld) [Mass/Vol]12.6 g/zGGobxhx20.5-15.5CFirelands Regional Medical Center on above: Order Comment: Specimen Type: BLOOD SPECIMENOrdering Facility: [facility] Address:[address] [place], [place] [address]Performed By: #### 03407- 2, 4537-7 ####[facility] LABCLIA [id number] (RBC) [Entitic mass] 29.9 ocLtqxaa69.0-34.0[facility] on above:Order Comment: Specimen Type: BLOOD SPECIMENOrdering Facility: [facility] Address:[address] [place], [place] [address]Performed By: #### 44924-8, 4536-7 ####[facility] LABIA [id number] [address] (RBC) [Mass/Vol]32.1 g/dL Rlewjj47.5-36.0[facility] on above:Order Comment: Specimen Type: BLOOD SPECIMENOrdering Facility: [facility] Address:[address] [place], [place] [address]Performed By: #### 83228-7, 7 ####[facility] LABIA [id number] [address] STREETV (RBC) [Entitic vol]93.1 fL Zwhmqa81.0-100.0[facility] on above:Order Comment: Specimen Type: BLOOD SPECIMENOrdering Facility: [facility] Address:[address] [place], [place] [address]Performed By: #### 15718-0, 4537-03 ####[facility] LABIA [id number] [address] RBC (Bld) [#/Vol] 10*3/uLNormal<0.01[facility] on above:Order Comment: Specimen Type: BLOOD SPECIMENOrdering Facility: [facility] Address:[address] [place], [place] [address]Performed By: #### 08417-8, 4537-03 ####[facility] LABIA [id number] [address] [place], [place] [address] [place] OF AMERICAPlatelet mean volume (Bld) [Entitic vol]10.9 fLNormal9.0-12.7CFirelands Regional Medical Center on above: Order Comment: Specimen Type: BLOOD SPECIMENOrdering Facility: [facility] Address:[address] [place], [place] [address]Performed By: #### 74076- 2, 4537-7 ####[facility] LABCLIA [id number] [facility] [place] [address] [place] AMERICAPlatelets (Bld) [#/Vol] 329 10*3/sYJhydzq244-092QhppjyuvwMartins Ferry Hospital on above:Order Comment: Specimen Type: BLOOD SPECIMENOrdering Facility: [facility] Address:[address] [place], [place] [address]Performed By: #### 01512- 2, 4537-7 ####[facility] LABCLIA [id number] [place] [address] [facility]ARE OF AMERICARBC (Bld) [#/Vol]4.21 10*6/uLNormal3.90-5.20[facility] on above:Order Comment: Specimen Type: BLOOD SPECIMENOrdering Facility: [facility] Address:[address] [place], [place] [address]Performed By: #### 83515-9, 4537-7 ####[facility] LABCLIA [id number] [place] [address] [place] AMERICAWBC (Bld) [#/Vol]7.27 10*3/uL Normal3.70-11.00[facility] on above:Order Comment: Specimen Type: BLOOD SPECIMENOrdering Facility: [facility] Address:[address] [place], [place] [address]Performed By: #### 97164-9, 4537-7 ####[facility] LABCLIA [id number] [place] [address] [facility] 31-28-7947UVF [Mass/Vol]0.6 mg/dLNormal<0.9CFirelands Regional Medical Center on above:Order Comment: Specimen Type: BLOOD SPECIMENOrdering Facility: [facility] Address:[address] [place], [place] [address]Performed By: #### 1742- 6, 192-8, 1988-01 ####[facility] [id number] [address]ECG01on 02-14-2025 DZH59Kcgrkfpqxam Rate : 77 BPM Atrial Rate : 77 BPM P-R Interval : 138 ms QRS Duration : 82 ms Q-T Interval : 386 ms QTC Calculation(Bazett) : 436 ms Calculated P [place] : 36 degrees Calculated R [place] : 47 degrees Calculated T [place] : 47 degrees NORMAL SINUS RHYTHM NORMAL ECG Confirmed by DI YORK M.D. ([id number]) on 02/14/2025 1:23:03 PM NAME : KOURTNEY NOVAK PID : [id number] : 1975 Gender : Female Race : ORD : Procedure Date : Feb 14 2025 07:00:27 Edit Date : Feb 14 2025 13:23:06 Diagnosis: NORMAL SINUS RHYTHM NORMAL ECG Confirmed by DI YORK M.D. ([id number]) on 02/14/2025 1:23:03 PM Test Reason : Location : 145 : [facility] Overread By : DI YORK M.D. Edited By : DI YORK M.D. Referred By : ERIK PINEDA Acquired by : Carlos romeroCleveland Clinic FoundationESR Westergren method (Bld) [Velocity]on 77-17-8498PYR (Bld) [Velocity]2 mm/hNormal0-20[facility] on above:Order Comment: Specimen Type: BLOOD SPECIMENOrdering Facility: [facility] Address:[address] [place], [place] [address]Performed By: #### 20687-9, 4537-7 ####[facility] [id number] [address] AMERICAHISTORY PHYSICALon 81-37-5108IWGZZFB PHYSICALHNO ID: [id number] Author: MEHUL MARTIN APRN.CNP Service: ? Author [...] [facility] rheumatology COPD (chronic obstructive pulmonary disease) ([facility]) Assessment: Stable with nebulizer treatments Denies any SOB Denies any Home oxygen use Lungs clear on exam SpO2 in office today 96% Monitored by PCP MAREK (obstructive sleep apnea) Assessment: Does not use CPAP Mixed hyperlipidemia Assessment: Compliant with Statin GERD (gastroesophageal reflux disease) Assessment: Controlled with dexilant Hypothyroidism Assessment: Controlled with levothyroxine Diabetes mellitus ([facility]) Assessment: Complaint with oral medications -A1C ordered today Instructions provided to patient on how long to hold diabetic medications prior to procedure Anxiety Assessment: Controlled with Lamictal Class 3 severe obesity due to excess calories with serious comorbidity and body mass index (BMI) of 40.0 to 44.9 in adult ([facility]) Assessment: Body mass index is [...] of breath with the above physical activity. DSU6LF3-JHRw Score: Age: <65 Sex: female CHF history: No Hypertension history: No Stroke/TIA/thromboembolism history: No Vascular disease history: No Diabetes history: Yes [id number]-RLEm Score: 2 ARISCAT Score: Age: <=50 Preoperative [...] has meningioma that was (more content not included)...NormalOhio[facility] Brain WO and W contrast Lasha 93-50-9452FMMULWEFVT: Findings across multiple examinations suggesting an intraosseous meningioma centered in the right sphenoid buttress and slow progressive enlargement of the contiguous protuberant anterior right temporal extra-axial nodule looking back to the exam in November 2015. No acute abnormalities. Company Doctor: PSCB Transcribe Date/Time: Feb 14 2025 10:01A Dictated by : SEAN BLOCK MD This examination was interpreted and the report reviewed and electronically signed by: SEAN BLOCK MD on Feb 14 2025 10:22AM [facility] DIVISION OF RADIOLOGY* * *Final Report* * * DATE OF EXAM: Feb 14 2025 10:37AM [facility] 0295 - MRI BRAIN WO/W [...] tissue mass extending into the of the marker machine or parapharyngeal spaces. The soft tissue planes of the, retropharyngeal, and prevertebral spaces are maintained. The visualized parotid glands are normal in appearance. Nasopharynx/Oropharynx: The nasopharynx and oropharynx are normal in appearance. DIVISION OF RADIOLOGYProvider, [facility] [place] - 02/14/2025 * * *Final Report* * * DATE OF EXAM: Feb 14 2025 10:37AM M 0295 - MRI BRAIN WO/W IVCON / [...] tissue mass extending into the of the marker machine or parapharyngeal spaces. The soft tissue planes [...] exam in November 2015. No acute abnormalities. Company Doctor: GUANACO Transcribe Date/Time: Feb 14 2025 10:01A Dictated by : SEAN BLOCK MD This examination was interpreted and the report reviewed and electronically signed by: SEAN BLOCK MD on Feb 14 2025 10:22AM EST [facility] HospitalRad[facility] observation (narrative)[facility] Brain WO and W contrast IVOrdered By: [facility] Provider on 60-23-3065Xbmqxmlhk ClinicMRI BRAIN WO/W IVCONon 70-98-0843NHJ BRAIN WO/W IVCON* * *Final Report* * * DATE OF EXAM: Feb 14 2025 10:37AM [facility] 0295 - MRI BRAIN WO/W [...] tissue mass extending into the of the marker machine or parapharyngeal spaces. The soft tissue planes [...] exam in November 2015. No acute abnormalities. [facility] Trans[facility] Date/Time: Feb 14 2025 10:01A Dictated by : SEAN BLOCK MD This examination was interpreted and the report reviewed and electronically signed by: SEAN BLOCK MD on Feb 14 2025 10:22AM EST [id number] Clinic FoundationSTAPHYLOCOCCUS AUREUS AND MRSA SCREEN, PCR, NASALon 02-14-2025S. aureus and MRSA panel RADHA+probe (Nose)Not detectedNormalNot DetectedMartins Ferry Hospital on above:Order Comment: Specimen Type: SWABOrdering Facility: [facility] Address: [address] [place], [place] [address]Performed By: #### SAPCR ####[facility] LABCLIA [id number] [place] [address] [place] OF AMERICATYPE AND SCREEN,30 DAYon 01-55-3566ZYTCJaegdhKbxowpnfyFirelands Regional Medical Center on above:Order Comment: Specimen Type: BLOOD SPECIMENOrdering Facility: [facility] Address:[address] [place], [place] [address]Performed By: #### TSCR30 ####[facility] BLOOD BANKCLIA [id number] [place] [address] [place] AMERICARh Nom (Bld)NegativeNormalCProtestant Hospital Comment on above:Order Comment: Specimen Type: BLOOD SPECIMENOrdering Facility: [facility] Address:[address] [place] [address] Performed By: #### TSCR30 ####CC MAIN BLOOD BANKCLIA [id number] [place] [address] [place] AMERICAUS renal BIon 75-21-0378KJ renal [facility] Main [place] [address] [place] [address] Ultrasound Report Signed Patient: Kourtney Novak MR#: [id number] : 1975 Acct:[id number] Age/Sex: 49 / F ADM Date: 02/10/25 Loc: Room: Type: [facility] Attending Dr: Jesus Gonzalez MD Ordering Provider: Jesus Gonzaelz MD Date of Service: 02/10/25 US/US renal [...] Gray M.D. 02/10/2025 4:44 PM Dictation Location: [place] [address] Tech: Vani Olivia Transcribed By: [facility] 02/10/25 1644 Dictated By: George Gray DO 02/10/25 164 Signed By: 02/10/25 1644[facility] Physician GroupCNOVleyla 62-85-9329NAEXSjxinp Visit (RHEUAV) KOURTNEY NOVKA ([id number]) 1975 F Date Time Provider Department 12/28/24 [...] Date Anxiety COPD (chronic obstructive pulmonary disease) ([facility]) Depression Diabetes mellitus ([facility]) Fibromyalgia Mixed hyperlipidemia PAST SURGICAL HISTORY Procedure [...] good air moveme (more content not included)...Normal [facility] Clinic FoundationX-ray reportOrdered By: Lincoln Hoffmann on 50-00-7167Yvdpc reportCLEVELAND [facility] [address] [place] [id number] XRay Report Signed Patient: Kourtney Novak MR#: [id number] : 1975 Acct:[id number] Age/Sex: 49 / F ADM Date: 5 [place] [facility] [place]: Type: [facility] Attending Dr: Elyssa Gomes MD Copies [...] Lincoln Hoffmann M.D.12/27/2024 4:47 PM Dictation Location: [place] [address] Transcribed By: [facility] 12/27/241646 Dictated By: Lincoln Hoffmann MD 12/27/241642 Signed By: 12/27/241646 [facility] Work Phone: XR wrist RT min 3V*on 14-28-8300VK wrist RT min 3V* [facility] [address] [place] [address] XRay Report Signed Patient: Kourtney Novak MR#: [id number] : 1975 Acct:[id number] Age/Sex: 49 / F ADM Date: 12/27/24 [place] [facility] [place]: Type: [facility] Attending Dr: Elyssa Gomes MD Copies [...] Lincoln Hoffmann M.D.12/27/2024 4:47 PM Dictation Location: [place] [address] Transcribed By: [facility] 12/27/241646 Dictated By: Lincoln Hoffmann MD 12/27/241642 Signed By: 12/27/24 164[facility] Physician GroupBasophils Auto (Bld) [#/Vol] Ordered By: Jesus Gonzalez on 98-95-9309Qntfoteqn (Bld) [#/Vol]Automated basophil count0.0-0.2FProMedica Defiance Regional HospitalBasophils/100 WBC Auto (Bld)Ordered By: Jesus Gonzalez on 61-28-8601Rvceehlax/100 WBC (Bld)Automated basophil %. [facility] For RehabilitationComplete Blood Count Auto Diffon 12-13-2024 Basophils (Bld) [#/Vol]0.1 10*3/uLNormal0.0-0.2The [facility] Physician Group Comment on above:Result Comment: PERFORMED BY: [address] [place] [address] PATHOLOGIST WHEY DEPARTMENT OPERATOR PAKO RAMACHANDRAN M.D.Performed By: #### LIPID, [id number], TSH3, T3F, FE PRO, [id number], T4T, MG, A1C WTH eA, CBC, PHOS #### [facility] [address] [place] [address] #### INSULIN #### [facility] ,Basophils/100 WBC (Bld)1.0 %Normal.The [facility] Physician [facility] MadisonComment on above:Performed By: #### LIPID, [id number], TSH3, T3F, FE PRO, [id number], T4T, MG, A1C WTH eA, CBC, PHOS #### [facility] [address] [place] [address] [place] #### INSULIN #### [facility] ,Eosinophils (Bld) [#/Vol]0.2 10*3/uLNormal0.0-0.45[facility] Physician Group Comment on above:Performed By: #### LIPID, [id number], TSH3, T3F, FE PRO, [id number], T4T, MG, A1C WTH eA, CBC, PHOS #### [address] #### INSULIN #### [facility] ,Eosinophils/100 WBC (Bld)2.7 %Normal.The [facility] Physician GroupComment on above:Performed By: #### LIPID, [id number], TSH3, T3F, FE PRO, [id number], T4T, MG, A1C WTH eA, CBC, PHOS #### [address] #### INSULIN #### [facility] ,Erythrocyte distribution width (RBC) [Ratio]13.3 %Fdnhpc74.9-15.3The [facility] Physician GroupComment on above:Performed By: #### LIPID, [id number], TSH3, T3F, FE PRO, [id number], T4T, MG, A1C WTH eA, CBC, PHOS #### [address] #### INSULIN #### [facility] ,Hematocrit (Bld) [Volume fraction]38.5 %Ucltvy67.0-46.4The [facility] Physician GroupComment on above:Performed By: #### LIPID, [id number], TSH3, T3F, FE PRO, [id number], T4T, MG, A1C WTH eA, CBC, PHOS #### [place] [address] [place] #### INSULIN #### [facility] ,Hemoglobin (Bld) [Mass/Vol]12.7 g/kRUkpyna46.8-15.4The [facility] Physician GroupComment on above:Performed By: #### LIPID, [id number], TSH3, T3F, FE PRO, [id number], T4T, MG, A1C WTH eA, CBC, PHOS #### [place] [address] [place] #### INSULIN #### [facility] ,Lymphocytes (Bld) [#/Vol]2.6 10*3/uLNormal1.00-4.8The [facility] Physician Group Comment on above:Performed By: #### LIPID, [id number], TSH3, T3F, FE PRO, [id number], T4T, MG, A1C WTH eA, CBC, PHOS #### [place] [address] [place] #### INSULIN #### [facility] ,Lymphocytes/100 WBC (Bld)30.8 %Normal.The [facility] Physician GroupComment on above:Performed By: #### LIPID, [id number], TSH3, T3F, FE PRO, [id number], T4T, MG, A1C WTH eA, CBC, PHOS #### [address] #### INSULIN #### [facility] ,MCH (RBC) [Entitic mass]30.2 wcOytvli63.7-34.3The [facility] Physician Group Comment on above:Performed By: #### LIPID, [id number], TSH3, T3F, FE PRO, [id number], T4T, MG, A1C WTH eA, CBC, PHOS #### [place] [address] [place] #### INSULIN #### [facility] ,MCV (RBC) [Entitic vol]91.4 oCOpesfm34-449Mns [facility] Physician GroupComment on above:Performed By: #### LIPID, [id number], TSH3, T3F, FE PRO, [id number], T4T, MG, A1C WTH eA, CBC, PHOS #### [place] [address] [place] #### INSULIN #### [facility] ,Mean Corpuscular HGB Conc33.1 g/tDDlbbsj15.0-35.0The [facility] Physician Group Comment on above:Performed By: #### LIPID, [id number], TSH3, T3F, FE PRO, [id number], T4T, MG, A1C WTH eA, CBC, PHOS #### [facility] [address] [place] [address] [place] #### INSULIN #### [facility] ,Monocytes (Bld) [#/Vol]0.9 10*3/uLHigh0.0-0.8The [facility] Physician Group Comment on above:Performed By: #### LIPID, [id number], TSH3, T3F, FE PRO, [id number], T4T, MG, A1C WTH eA, CBC, PHOS #### [address] #### INSULIN #### [facility] ,Monocytes/100 WBC (Bld)11.1 %Normal.The [facility] Physician GroupComment on above:Performed By: #### LIPID, [id number], TSH3, T3F, FE PRO, [id number], T4T, MG, A1C WTH eA, CBC, PHOS #### [place] [address] [place] #### INSULIN #### [facility] ,Neutrophils (Bld) [#/Vol]4.6 10*3/uLNormal1.8-7.7The [facility] Physician Group Comment on above:Performed By: #### LIPID, [id number], TSH3, T3F, FE PRO, [id number], T4T, MG, A1C WTH eA, CBC, PHOS #### [facility] [address] [place] [address] [place] #### INSULIN #### [facility] ,Neutrophils/100 WBC (Bld)54.4 %Normal.The [facility] Physician GroupComment on above:Performed By: #### LIPID, [id number], TSH3, T3F, FE PRO, [id number], T4T, MG, A1C WTH eA, CBC, PHOS #### [facility] [address] [place] [address] #### INSULIN #### [facility] ,NRBC%0.1 /100{WBC}Normal0-0.5The [facility] Physician GroupComment on above: Performed By: #### LIPID, [id number], TSH3, T3F, FE PRO, [id number], T4T, MG, A1C WTH eA, CBC, PHOS #### [facility] [address] [place] [address] [place] #### INSULIN #### [facility] ,Platelet mean volume (Bld) [Entitic vol]8.6 fLNormal6.3-10.7The [facility] Physician GroupComment on above:Performed By: #### LIPID, [id number], TSH3, T3F, FE PRO, [id number], T4T, MG, A1C WTH eA, CBC, PHOS #### [place] [address] [place] #### INSULIN #### [facility] ,Platelets (Bld) [#/Vol]372 10*3/oNLubioo898-022Lkp [facility] Physician Group Comment on above:Performed By: #### LIPID, [id number], TSH3, T3F, FE PRO, [id number], T4T, MG, A1C WTH eA, CBC, PHOS #### [place] [address] [place] #### INSULIN #### [facility] ,RBC (Bld) [#/Vol]4.22 10*6/uLNormal3.60-5.00The [facility] Physician Group Comment on above:Performed By: #### LIPID, [id number], TSH3, T3F, FE PRO, [id number], T4T, MG, A1C WTH eA, CBC, PHOS #### [address] #### INSULIN #### [facility] ,WBC (Bld) [#/Vol]8.5 10*3/uLNormal3.8-11.6The [facility] Physician GroupComment on above:Performed By: #### LIPID, [id number], TSH3, T3F, FE PRO, [id number], T4T, MG, A1C WTH eA, CBC, PHOS #### [address] #### INSULIN #### [facility] ,Eosinophils Auto (Bld) [#/Vol]Ordered By: Jesus Gonzalez on 75-48-5701Rdgcdnubzzr (Bld) [#/Vol]Automated eosinophil count0.0-0.45[facility] Eosinophils/100 WBC Auto (Bld)Ordered By: Jesus Gonzalez on 12-13-2024 Eosinophils/100 WBC (Bld)Automated eosinophil %.[facility] Hospital For RehabilitationErythrocyte distribution width Auto (RBC) [Ratio]Ordered By: Jesus Gonzalez on 42-14-1147Wmcnyhxsqea distribution width (RBC) [Ratio]Erythrocyte distribution width [Ratio] by Automated count11.9-15.3FProMedica Defiance Regional HospitalFerritinon 88-80-7051Bupydiws [Mass/Vol]56.2 ng/hWLmcysf52.0-306.8The [facility] Physician GroupComment on above:Result Comment: PERFORMED BY: [place] [address] PATHOLOGIST WHEY DEPARTMENT OPERATOR PAKO RAMACHANDRAN M.D.Performed By: #### LIPID, [id number], TSH3, T3F, FE PRO, [id number], T4T, MG, A1C WTH eA, CBC, PHOS #### [address] #### INSULIN #### [facility] ,Ferritin [Mass/volume] in Serum or PlasmaOrdered By: Jesus Gonzalez on 12-13-2024 Ferritin [Mass/Vol]Ferritin [Mass/volume] in Serum or Irisjw75.0-306.8[facility] Hospital For RehabilitationHematocrit Auto (Bld) [Volume fraction]Ordered By: Jesus Gonzalez on 87-19-1815Djrrvgmkhe (Bld) [Volume fraction]Hematocrit [Volume Fraction] of Blood by Automated count34.0-46.4FProMedica Defiance Regional Hospital Hemoglobin [Mass/volume] in BloodOrdered By: Jesus Gonzalez on 14-48-2366Qfllkabnab (Bld) [Mass/Vol]Hemoglobin [Mass/volume] in Blood11.8-15.4FProMedica Defiance Regional HospitalIronon 68-22-4697Yiqf [Mass/Vol]37 ug/lBZti09-592Snc [facility] Physician GroupComment on above:Performed By: #### LIPID, [id number], TSH3, T3F, FE PRO, MULV63AKP, T4T, MG, A1C WTH eA, CBC, PHOS #### [address] #### INSULIN #### [facility] ,Iron [Mass/volume] in Serum or PlasmaOrdered By: Jesus Gonzalez on 91-74-8436Fjgh [Mass/Vol]Iron [Mass/volume] in Serum or SqvtjxUfa53-093ApkdgilvtCleveland Clinic Children'S Hospital For RehabilitationLeukocytes [#/volume] corrected for nucleated erythrocytes in Blood by Automated counOrdered By: Jesus Gonzalez on 46-87-1548RUX corrected for nucl RBC Auto (Bld) [#/Vol]Leukocytes [#/volume] corrected for nucleated erythrocytes in Blood by Automated coun3.8-11.6FProMedica Defiance Regional Hospital Lymphocytes Auto (Bld) [#/Vol]Ordered By: Jesus Gonzalez on 31-20-1374Lzfqogeltik (Bld) [#/Vol]Lymphocytes [#/volume] in Blood by Automated count1.00-4.8[facility] Hospital For RehabilitationLymphocytes/100 WBC Auto (Bld)Ordered By: Jesus Gonzalez on 61-09-1829Bwzqlpfsmzj/100 WBC (Bld)Lymphocytes/100 leukocytes in Blood by Automated count.WVUMedicine Harrison Community HospitalH Auto (RBC) [Entitic mass] Ordered By: Jesus Gonzalez on 27-02-3946GNF (RBC) [Entitic mass]MCH [Entitic mass] by Automated count24.7-34.3FProMedica Defiance Regional HospitalMCHC Auto (RBC) [Mass/Vol]Ordered By: Jesus Gonzalez on 69-57-5578CIKZ (RBC) [Mass/Vol]MCHC [Mass/volume] by Automated count32.0-35.0[facility] For RehabilitationMCV Auto (RBC) [Entitic vol]Ordered By: Jesus Gonzalez on 38-37-8487PKC (RBC) [Entitic vol]MCV [Entitic volume] by Automated rwjja89-585RvcfvnedhCleveland Clinic Children'S Hospital For RehabilitationMonocytes Auto (Bld) [#/Vol]Ordered By: Jesus Gonzalez on 00-37-3856Imtmsxsxf (Bld) [#/Vol]Automated blood monocyte countHigh0.0-0.8[facility] For RehabilitationMonocytes/100 WBC Auto (Bld)Ordered By: Jesus Gonzalez on 12-13-2024 Monocytes/100 WBC (Bld)Automated monocyte %.[facility] Neutrophils Auto (Bld) [#/Vol]Ordered By: Jesus Gonzalez on 05-31-1985Sncephzalip (Bld) [#/Vol]Neutrophils [#/volume] in Blood by Automated count1.8-7.7FProMedica Defiance Regional HospitalNeutrophils/100 WBC Auto (Bld)Ordered By: Jesus Gonzalez on 63-48-8144Jmzlnaefvzr/100 WBC (Bld)Automated neutrophil %.[facility] For RehabilitationNucleated erythrocytes [Presence] in Blood by Automated count Ordered By: Jesus Gonzalez on 86-36-7936Yckvylfgx RBC Auto Ql (Bld)Nucleated erythrocytes [Presence] in Blood by Automated count0-0.5FProMedica Defiance Regional HospitalPlatelet mean volume Auto (Bld) [Entitic vol]Ordered By: Jesus Gonzalez on 98-40-1620Qzimggph mean volume (Bld) [Entitic vol]Platelet mean volume [Entitic volume] in Blood by Automated count6.3-10.7FProMedica Defiance Regional HospitalPlatelets Auto (Bld) [#/Vol]Ordered By: Jesus Gonzalez on 81-28-8212Acswmhcvr (Bld) [#/Vol]Platelets [#/volume] in Blood by Automated kjaoz691-420FsqgyqkxrCleveland Clinic Children'S Hospital For RehabilitationRBC Auto (Bld) [#/Vol]Ordered By: Jesus Gonzalez on 02-39-4682FLJ (Bld) [#/Vol]Erythrocytes [#/volume] in Blood by Automated count 3.60-5.00[facility] Hospital For RehabilitationWBC Auto (Bld) [#/Vol]Ordered By: Jesus Gonzalez on 92-36-4469KME (Bld) [#/Vol]Leukocytes [#/volume] in Blood by Automated count3.8-11.6FProMedica Defiance Regional HospitalCNPNon 72-47-2640PXKA Telephone (NSCAMN) KOURTNEY NOVAK ([id number]) 1975 F Date Time Provider Department 12/05/24 SHAKILA PHILLIPS [facility] During your visit today, we recorded [...] reach out for questions/concerns/updates. Shakila Phillips RN, Assembler [employer] Furn[employer] Allergies As of Date: 12/05/2024 (No Known [...] [G44*06/01/2023 Encounter Status:Closed by SHAKILA PHILLIPS on 12/05/24[facility] CenterX-ray reportOrdered By: George Gray on [id number] reportFIRMERCY [facility] [address] [place] [address] XRay Report Signed Patient: Kourtney Novak MR#: [id number] : 1975 Acct:[id number] Age/Sex: 48 / F ADM Date: 5 [place] [facility] [place] Type: [facility] Attending Dr: Alessia Broderick MD Copies to: [...] George Gray M.D.11/03/2024 4:19 PM Dictation Location: [place] [address] Transcribed By: [facility] 11/03/24 1619 Dictated By: George Gray DO 11/03/24 1618 Signed By: 11/03/24 1619 [facility] RehabilitationXR shoulder LT min 2V*on 05-56-3399RS shoulder LT min 2V*[facility] [address] [place] [address] XRay Report Signed Patient: Kourtney Novak MR#: [id number] : 1975 Acct:[id number] Age/Sex: 48 / F ADM Date: 11/03/24 Loc: SOXD Room: Type: [facility] Attending Dr: Alessia Broderick MD Copies to: [...] George Gray M.D.11/03/2024 4:19 PM Dictation Location: [place] [address] Transcribed By: [facility] 11/03/24 1619 Dictated By: George Gray DO 11/03/24 1618 Signed By: 11/03/24 1619[facility] Physician GroupCNPNon [id number] (MAGDALENAUAV) KOURTNEY NOVAK ([id number]) 1975 F Date Time Provider Department 10/10/24 ZULEMA WOOD During your visit today, we recorded the following information about you: Tere Escamilla LPN 10/10/2024 4:11 PM Addendum Received fax from [facility]. States that diagnosis code M19.9 ( inflammatory arthritis ) does not pass medical necessity for the 16460 regarding CBC test. They needs a different order to be placed with another diagnosis code. Please fax to Jimbo Whitten at [phone]. Notice sent to scanning . Please route to [facility] nurse for follow up Tere Escamilla LPN 10/10/2024 5:01 PM Signed Faxed new order with updated diagnosis code . sent to [phone]. Allergies As of Date: 10/10/2024 (No Known Allergies) Date Reviewed: 05/30/2024 Reviewed by: Saritha Keith MA - Fully Assessed Reason for Visit: [employer] - Other [3602] Cmt: Lab order problem Primary Visit Diagnosis:Encounter for medication monitoring [Z51.81] Order(s):ASPARTATE AMINOTRANSFERASE/SGOT [SQAST] Order #: [id number] STANDING ALANINE AMINOTRANSFERASE / SGPT [SQALT] Order #: [id number] STANDING COMPLETE BLOOD COUNT [SQCBC] Order #: [id number] STANDING SEDIMENTATION RATE, WESTERGREN [SQWSR] Order #: [id number] STANDING C-REACTIVE PROTEIN [SQCRP] Order #: [id number] STANDING Prescriptions as of 10/10/2024 - DULoxetine [...] [G44*06/01/2023 Encounter Status:Closed by TERE ESCAMILLA on 10/10/24[facility] CenterAlanine Aminotransferaseon 73-16-1768RTU [Catalytic activity/Vol]21 U/L Normal7-The [facility] Physician GroupComment on above:Order Comment: FASTING.JKWPerformed By: #### LIPID, [id number], TSH3, T3F, FE PRO, [id number], T4T, MG, A1C WTH eA, CBC, PHOS #### [facility] [address] [place] [address] #### INSULIN #### [facility] ,Alanine aminotransferase [Enzymatic activity/volume] in Serum or PlasmaOrdered By: Zulema Wood on 97-97-3201JHQ [Catalytic activity/Vol]Alanine aminotransferase [Enzymatic activity/volume] in Serum or PlasmaCleveland Clinic Children'S Hospital For RehabilitationAspartate Amino Transferaseon 42-18-3248LOO [Catalytic activity/Vol]14 U/JZrbgpx91-38Ujg [facility] Physician GroupComment on above: Order Comment: FASTING.JKWPerformed By: #### LIPID, [id number], TSH3, T3F, FE PRO, [id number], T4T, MG, A1C WTH eA, CBC, PHOS #### [facility] [address] #### INSULIN #### [facility] ,Aspartate aminotransferase [Enzymatic activity/volume] in Serum or Plasma Ordered By: Zulema Wood on 92-92-7429KKI [Catalytic activity/Vol]Aspartate aminotransferase [Enzymatic activity/volume] in Serum or Fzmtfv21-31KyjecqwacCleveland Clinic Children'S Hospital For RehabilitationBasophils Auto (Bld) [#/Vol]Ordered By: Zulema Wood on 35-97-3539Aqgcdbkym (Bld) [#/Vol]Automated basophil count0.0-0.2FProMedica Defiance Regional HospitalBasophils/100 WBC Auto (Bld)Ordered By: Zulema Wood on 52-06-5370Myhtjarke/100 WBC (Bld)Automated basophil %.[facility] For RehabilitationC reactive protein [Mass/volume] in Serum or PlasmaOrdered By: Zulema Wood on 28-62-5885XRA [Mass/Vol]C reactive protein [Mass/volume] in Serum or PlasmaHigh0.0-0.5FProMedica Defiance Regional HospitalC-Reactive Proteinon 60-51-5541F-Reactive Protein0.7 mg/dLHigh0.0-0.5The [facility] Physician Group Comment on above:Order Comment: FASTING.[employer] Comment: PERFORMED BY: [place] [address] PATHOLOGIST WHEY DEPARTMENT OPERATOR PAKO RAMACHANDRAN M.D.Performed By: #### LIPID, [id number], TSH3, T3F, FE PRO, [id number], T4T, MG, A1C WTH eA, CBC, PHOS #### [facility] [address] [place] [address] #### INSULIN #### [facility] ,CNPNon [id number] (RHEUAV) KOURTNEY NOVAK ([id number]) 1975 F Date Time Provider Department 09/20/24 ZULEMA WOOD During your visit today, we recorded the following information about you: Tere Escamilla LPN 09/20/2024 5:47 PM Signed Lab results received from [facility] . Copy sent to scan, copy sent [...] [G44*06/01/2023 Encounter Status:Closed by TERE ESCAMILLA on 09/21/24[facility] CenterComplete Blood Count Auto Diffon 51-57-9606Seteklawk (Bld) [#/Vol]0.0 10*3/uLNormal0.0-0.2The [facility] Physician GroupComment on above:Order Comment: FASTING.JKWPerformed By: #### LIPID, [id number], TSH3, T3F, FE PRO, [id number], T4T, MG, A1C WTH eA, CBC, PHOS #### [place] [address] [place] #### INSULIN #### [facility] ,Basophils/100 WBC (Bld)0.6 %Normal.The [facility] Physician GroupComment on above:Order Comment: FASTING.JKWPerformed By: #### LIPID, [id number], TSH3, T3F, FE PRO, [id number], T4T, MG, A1C WTH eA, CBC, PHOS #### [facility] [address] [place] [address] [place] #### INSULIN #### [facility] ,Eosinophils (Bld) [#/Vol]0.1 10*3/uLNormal0.0-0.45The [facility] Physician Group Comment on above:Order Comment: FASTING.JKWPerformed By: #### LIPID, [id number], TSH3, T3F, FE PRO, [id number], T4T, MG, A1C WTH eA, CBC, PHOS #### [place] [address] [place] #### INSULIN #### [facility] ,Eosinophils/100 WBC (Bld)1.2 %Normal.The [facility] Physician GroupComment on above:Order Comment: FASTING.JKWPerformed By: #### LIPID, [id number], TSH3, T3F, FE PRO, [id number], T4T, MG, A1C WTH eA, CBC, PHOS #### [address] #### INSULIN #### [facility] ,Erythrocyte distribution width (RBC) [Ratio]13.0 %Cjuglp28.9-15.3The [facility] Physician GroupComment on above:Order Comment: FASTING.JKWPerformed By: #### LIPID, [id number], TSH3, T3F, FE PRO, [id number], T4T, MG, A1C WTH eA, CBC, PHOS #### [address] #### INSULIN #### [facility] ,Hematocrit (Bld) [Volume fraction]35.8 %Augdhn15.0-46.4The [facility] Physician GroupComment on above:Order Comment: FASTING.JKWPerformed By: #### LIPID, [id number], TSH3, T3F, FE PRO, [id number], T4T, MG, A1C WTH eA, CBC, PHOS #### [place] [address] [place] #### INSULIN #### [facility] ,Hemoglobin (Bld) [Mass/Vol]12.0 g/cJFegixp23.8-15.4The [facility] Physician GroupComment on above:Order Comment: FASTING.JKWPerformed By: #### LIPID, [id number], TSH3, T3F, FE PRO, [id number], T4T, MG, A1C WTH eA, CBC, PHOS #### [place] [address] [place] #### INSULIN #### [facility] ,Lymphocytes (Bld) [#/Vol]2.1 10*3/uLNormal1.00-4.8The [facility] Physician Group Comment on above:Order Comment: FASTING.JKWPerformed By: #### LIPID, [id number], TSH3, T3F, FE PRO, [id number], T4T, MG, A1C WTH eA, CBC, PHOS #### [address] #### INSULIN #### [facility] ,Lymphocytes/100 WBC (Bld)28.4 %Normal.The [facility] Physician GroupComment on above:Order Comment: FASTING.JKWPerformed By: #### LIPID, [id number], TSH3, T3F, FE PRO, [id number], T4T, MG, A1C WTH eA, CBC, PHOS #### [address] #### INSULIN #### [facility] ,MCH (RBC) [Entitic mass]30.4 suWwgkya92.7-34.3The [facility] Physician Group Comment on above:Order Comment: FASTING.JKWPerformed By: #### LIPID, [id number], TSH3, T3F, FE PRO, [id number], T4T, MG, A1C WTH eA, CBC, PHOS #### [place] [address] [place] #### INSULIN #### [facility] ,MCV (RBC) [Entitic vol]90.8 qGBtyybn96-146Poz [facility] Physician GroupComment on above:Order Comment: FASTING.JKWPerformed By: #### LIPID, [id number], TSH3, T3F, FE PRO, [id number], T4T, MG, A1C WTH eA, CBC, PHOS #### [place] [address] [place] #### INSULIN #### [facility] ,Mean Corpuscular HGB Conc33.5 g/vSJuhtul00.0-35.0The [facility] Physician Group Comment on above:Order Comment: FASTING.JKWPerformed By: #### LIPID, [id number], TSH3, T3F, FE PRO, [id number], T4T, MG, A1C WTH eA, CBC, PHOS #### [address] #### INSULIN #### [facility] ,Monocytes (Bld) [#/Vol]1.0 10*3/uLHigh0.0-0.8The [facility]ician Group Comment on above:Order Comment: FASTING.JKWPerformed By: #### LIPID, [id number], TSH3, T3F, FE PRO, [id number], T4T, MG, A1C WTH eA, CBC, PHOS #### [place] [address] [place] #### INSULIN #### [facility] ,Monocytes/100 WBC (Bld)13.1 %Normal.The [facility] Physician GroupComment on above:Order Comment: FASTING.JKWPerformed By: #### LIPID, [id number], TSH3, T3F, FE PRO, [id number], T4T, MG, A1C WTH eA, CBC, PHOS #### [place] [address] [place] #### INSULIN #### [facility] ,Neutrophils (Bld) [#/Vol]4.3 10*3/uLNormal1.8-7.7The [facility]ician Group Comment on above:Order Comment: FASTING.JKWPerformed By: #### LIPID, [id number], TSH3, T3F, FE PRO, [id number], T4T, MG, A1C WTH eA, CBC, PHOS #### [facility] [address] [place] [address] [place] #### INSULIN #### [facility] ,Neutrophils/100 WBC (Bld)56.7 %Normal.The [facility] Physician GroupComment on above:Order Comment: FASTING.JKWPerformed By: #### LIPID, [id number], TSH3, T3F, FE PRO, [id number], T4T, MG, A1C WTH eA, CBC, PHOS #### [facility] [address] [place] [address] [place] #### INSULIN #### [facility] ,NRBC%0.0 /100{WBC}Normal0-0.5The [facility] Physician GroupComment on above: Order Comment: FASTING.JKWPerformed By: #### LIPID, [id number], TSH3, T3F, FE PRO, [id number], T4T, MG, A1C WTH eA, CBC, PHOS #### [facility] [address] [place] [address] [place] #### INSULIN #### [facility] ,Platelet mean volume (Bld) [Entitic vol]8.5 fLNormal6.3-10.7The [facility] Physician GroupComment on above:Order Comment: FASTING.JKWPerformed By: #### LIPID, [id number], TSH3, T3F, FE PRO, [id number], T4T, MG, A1C WTH eA, CBC, PHOS #### [facility] [address] [place] [address] [place] #### INSULIN #### [facility] ,Platelets (Bld) [#/Vol]353 10*3/kCYqfqww076-778Cgj [facility] Physician Group Comment on above:Order Comment: FASTING.JKWPerformed By: #### LIPID, [id number], TSH3, T3F, FE PRO, [id number], T4T, MG, A1C WTH eA, CBC, PHOS #### [place] [address] [place] #### INSULIN #### [facility] ,RBC (Bld) [#/Vol]3.94 10*6/uLNormal3.60-5.00The [facility]ician Group Comment on above:Order Comment: FASTING.JKWPerformed By: #### LIPID, [id number], TSH3, T3F, FE PRO, [id number], T4T, MG, A1C WTH eA, CBC, PHOS #### [address] #### INSULIN #### [facility] ,WBC (Bld) [#/Vol]7.5 10*3/uLNormal3.8-11.6The [facility] Physician GroupComment on above:Order Comment: FASTING.JKWPerformed By: #### LIPID, [id number], TSH3, T3F, FE PRO, [id number], T4T, MG, A1C WTH eA, CBC, PHOS #### [address] #### INSULIN #### [facility] ,Eosinophils Auto (Bld) [#/Vol]Ordered By: Zulema Wood on 94-60-3871Lnrdjrrpptj (Bld) [#/Vol]Automated eosinophil count0.0-0.45[facility] RehabilitationEosinophils/100 WBC Auto (Bld)Ordered By: Zulema Wood on 09-20-2024 Eosinophils/100 WBC (Bld)Automated eosinophil %.[facility] RehabilitationErythrocyte Sedimentation Rateon 49-07-3865RUI (Bld) [Velocity]9 mm/h Normal0-19The [facility] Physician GroupComment on above:Order Comment: FASTING.JKWResult Comment: PERFORMED BY: [address] [place] [address] PATHOLOGIST WHEY DEPARTMENT OPERATOR PAKO RAMACHANDRAN M.D.Performed By: #### LIPID, [id number], TSH3, T3F, FE PRO, [id number], T4T, MG, A1C WTH eA, CBC, PHOS #### [facility] [address] #### INSULIN #### [facility] ,Erythrocyte distribution width Auto (RBC) [Ratio]Ordered By: Zulema Wood on 85-14-4559Lwkcygehkdu distribution width (RBC) [Ratio]Erythrocyte distribution width [Ratio] by Automated count11.9-15.3FProMedica Defiance Regional Hospital Erythrocyte sedimentation rate by Photometric methodOrdered By: Zulema Wood on 23-67-3690SVX Photometric method (Bld) [Velocity]Erythrocyte sedimentation rate by Photometric method0-19[facility] RehabilitationHematocrit Auto (Bld) [Volume fraction]Ordered By: Zulema Wood on 19-45-0397Nmqihxaclw (Bld) [Volume fraction]Hematocrit [Volume Fraction] of Blood by Automated count34.0-46.4 [facility] RehabilitationHemoglobin [Mass/volume] in BloodOrdered By: Zulema Wood on 14-82-4889Rcqwxpbqul (Bld) [Mass/Vol]Hemoglobin [Mass/volume] in Blood11.8-15.4FProMedica Defiance Regional HospitalLeukocytes [#/volume] corrected for nucleated erythrocytes in Blood by Automated counOrdered By: Zulema Wood on 45-41-4634EFI corrected for nucl RBC Auto (Bld) [#/Vol]Leukocytes [#/volume] corrected for nucleated erythrocytes in Blood by Automated coun3.8-11.6FProMedica Defiance Regional HospitalLymphocytes Auto (Bld) [#/Vol]Ordered By: Zulema Wood on 85-55-5192Bjtxxjhwwhz (Bld) [#/Vol]Lymphocytes [#/volume] in Blood by Automated count1.00-4.8[facility] RehabilitationLymphocytes/100 WBC Auto (Bld)Ordered By: Zulema Wood on 43-73-6607Jzurmmvoqgt/100 WBC (Bld) Lymphocytes/100 leukocytes in Blood by Automated count.[facility] For RehabilitationMCH Auto (RBC) [Entitic mass]Ordered By: Zulema Wood on 28-21-8159RPD (RBC) [Entitic mass]MCH [Entitic mass] by Automated count24.7-34.3 [facility] For RehabilitationMCHC Auto (RBC) [Mass/Vol]Ordered By: Zulema Wood on 11-08-5559BCYF (RBC) [Mass/Vol]MCHC [Mass/volume] by Automated count 32.0-35.0[facility] RehabilitationMCV Auto (RBC) [Entitic vol]Ordered By: Zulema Wood on 51-57-8333JAH (RBC) [Entitic vol]MCV [Entitic volume] by Automated rkash34-150GnuoxuurqCleveland Clinic Children'S Hospital For RehabilitationMonocytes Auto (Bld) [#/Vol]Ordered By: Zulema Wood on 59-59-9413Wkmcesnlh (Bld) [#/Vol]Automated blood monocyte countHigh0.0-0.8[facility] RehabilitationMonocytes/100 WBC Auto (Bld)Ordered By: Zulema Wood on 85-44-2513Fsphzioju/100 WBC (Bld) Automated monocyte %.[facility] RehabilitationNeutrophils Auto (Bld) [#/Vol]Ordered By: Zulema Wood on 43-80-3108Fgbqxbetnem (Bld) [#/Vol] Neutrophils [#/volume] in Blood by Automated count1.8-7.7FProMedica Defiance Regional HospitalNeutrophils/100 WBC Auto (Bld)Ordered By: Zulema Wood on 35-43-4034Bbhfatjgteg/100 WBC (Bld)Automated neutrophil %.[facility] RehabilitationNucleated erythrocytes [Presence] in Blood by Automated count Ordered By: Zulema Wood on 25-69-0455Zcbjjnvkj RBC Auto Ql (Bld)Nucleated erythrocytes [Presence] in Blood by Automated count0-0.5FProMedica Defiance Regional HospitalPlatelet mean volume Auto (Bld) [Entitic vol]Ordered By: Zulema Wood on 64-88-2509Vninsdqs mean volume (Bld) [Entitic vol]Platelet mean volume [Entitic volume] in Blood by Automated count6.3-10.7FProMedica Defiance Regional HospitalPlatelets Auto (Bld) [#/Vol]Ordered By: Zulema Wood on 09-20-2024 Platelets (Bld) [#/Vol]Platelets [#/volume] in Blood by Automated jiwpa217-176 [facility] RehabilitationRBC Auto (Bld) [#/Vol]Ordered By: Zulema Wood on 34-89-2126QRE (Bld) [#/Vol]Erythrocytes [#/volume] in Blood by Automated count3.60-5.00[facility] RehabilitationWBC Auto (Bld) [#/Vol]Ordered By: Zulema Wood on 71-50-8528BIR (Bld) [#/Vol]Leukocytes [#/volume] in Blood by Automated count3.8-11.6FProMedica Defiance Regional HospitalMM screening mammo BI w/CADon 67-92-5125UP screening mammo BI w/[facility]ADCLEVEL[facility] [place] [address] Mammography Report Signed Patient: Kourtney Novak MR#: [id number] : 1975 Acct:[id number] Age/Sex: 48 / F ADM Date: 09/16/24 Loc: [place] Room: Type: [facility] Attending Dr: Referral Self Copies to: [...] Location: [facility] Transcribed By: GRACIE 09/16/24 1440 Dictated By: Lincoln Hoffmann MD 09/16/24 1437 Signed By: 09/16/24 1440[facility] Physician GroupMammography reportOrdered By: Lincoln Hoffmann on 45-84-4734Xmthrwrekg imaging [facility] [place] [address] [place] [address] Mammography Report Signed Patient: Kourtney Novak MR#: [id number] : 1975 Acct:[id number] Age/Sex: 48 / F ADM Date: 5 Loc: [place] Room: Type: [facility] Attending Dr: Referral Self Copies to: [...] Location: [facility] Transcribed By: GRACIE 09/16/24 1440 Dictated By: Lincoln Hoffmann MD 09/16/24 1437 Signed By: 09/16/24 1440 [facility] Work Phone: Thyrotropin [Units/volume] in Serum or PlasmaOrdered By: Jesus Gonzalez on 09-25-4974VHI Qn2.24 m[IU]/L0.45-5.33[facility] RehabilitationThyroxine (T4) [Mass/volume] in Serum or PlasmaOrdered By: Jesus Gonzalez on 81-82-4272I7 [Mass/Vol]11.23 ug/dL5.39-11.82[facility] For RehabilitationTriiodothyronine (T3) Free [Mass/volume] in Serum or PlasmaOrdered By: Jesus Gonzalez on 59-08-5983Mdbf T3 [Mass/Vol]2.96 pg/mL2.50-3.90[facility] RehabilitationAlanine aminotransferase [Enzymatic activity/volume] in Serum or PlasmaOrdered By: Jesus Gonzalez on 04-18-6053IWF [Catalytic activity/Vol]17 U/L 7-52[facility] RehabilitationAlbumin [Mass/volume] in Serum or Plasma by Bromocresol green (BCG) dye binding methoOrdered By: Jesus Gonzalez on 05-12-2024 Albumin BCG dye [Mass/Vol]4.1 g/dL3.5-5.7FProMedica Defiance Regional Hospital Alkaline phosphatase [Enzymatic activity/volume] in Serum or PlasmaOrdered By: Jesus Gonzalez on 85-95-8406TON [Catalytic activity/Vol]42 U/C53-574VwiepdclaCleveland Clinic Children'S Hospital For RehabilitationAnisocytosis LM Ql (Bld)Ordered By: Jesus Gonzalez on 45-45-1663Euqcgekptzql Ql (Bld)SlightCleveland Clinic Children'S Hospital For RehabilitationAspartate aminotransferase [Enzymatic activity/volume] in Serum or PlasmaOrdered By: Jesus Gonzalez on 27-26-3013INA [Catalytic activity/Vol]11 U/VKep82-85WhnqjypafCleveland Clinic [facility]'S Hospital For RehabilitationBand form neutrophils/100 WBC Manual cnt (Bld)Ordered By: Jesus Gonzalez on 73-34-6125Jctq form neutrophils/100 WBC (Bld)1 %0-5FProMedica Defiance Regional HospitalBasophils Auto (Bld) [#/Vol]Ordered By: Jesus Hoy on 14-33-8037Yhykujvua (Bld) [#/Vol]N/[facility] Basophils/100 WBC Auto (Bld)Ordered By: Jesus Gonzalez on 50-94-0965Oxiteapue/100 WBC (Bld)N/[facility] HospitalBasophils/100 WBC Manual cnt (Bld) Ordered By: Jesus Gonzalez on 71-66-6067Kcrlwdwuw/100 WBC (Bld)1 %0-2FProMedica Defiance Regional HospitalBilirubin.total [Mass/volume] in Serum or PlasmaOrdered By: Jesus Gonzalez on 67-17-3954Nczpleokk [Mass/Vol]0.4 mg/dL0.3-1.0[facility] RehabilitationCalcium [Mass/volume] in Serum or PlasmaOrdered By: Jesus Gonzalez on 81-37-4362Ncrytjd [Mass/Vol]9.4 mg/dL8.6-10.3FProMedica Defiance Regional HospitalCarbon dioxide, total [Moles/volume] in Serum or PlasmaOrdered By: Jesus Gonzalez on 87-20-2452DB0 [Moles/Vol]27.0 mmol/L21.0-31.0[facility] For RehabilitationChloride [Moles/volume] in Serum or PlasmaOrdered By: Jesus Gonzalez on 43-36-1984Tgqyxukx [Moles/Vol]101 mmol/H19-678JcwadlhrlCleveland Clinic Children'S Hospital For RehabilitationCholesterol [Mass/volume] in Serum or PlasmaOrdered By: Jesus Gonzalez on 82-73-3840Cdkfjddjszp [Mass/Vol]191 mg/yD852-684OxluqynouCleveland Clinic Children'S Hospital For RehabilitationComment on above:Chol less than 200 mg/dl low riskChol 201-239 mg/dl borderline riskChol 240 mg/dl and greater high riskCholesterol in LDL Calc [Mass/Vol]Ordered By: Jesus Gonzalez on 51-68-4301Xredgzdqxcp in LDL [Mass/Vol]76 mg/dL0-100[facility] For RehabilitationComment on above:LDL ATP III CLASSIFICATIONLDL less than 100 mg/dL OptimalLDL 100-129 mg/dL Near or above xtyrhvxPPR454-469 mg/dL Borderline highLDL 160-189 mg/dL HighLDL greater than 189 mg/dL Very highCholesterol in VLDL Calc [Mass/Vol]Ordered By: Jesus Gonzalez on 16-60-1596Bcyhflfnfwo in VLDL [Mass/Vol]29 mg/dLCleveland Clinic Children'S Hospital For RehabilitationCreatinine [Mass/volume] in Serum or PlasmaOrdered By: Jesus Gonzalez on 11-75-6769Qbozggqthy [Mass/Vol]1.05 mg/dL0.60-1.20[facility] RehabilitationEosinophils Auto (Bld) [#/Vol]Ordered By: Jesus Gonzalez on 05-12-2024 Eosinophils (Bld) [#/Vol]N/AFProMedica Defiance Regional HospitalEosinophils/100 WBC Auto (Bld)Ordered By: Jesus Gonzalez on 11-79-2959Fqovgrzztjp/100 WBC (Bld)N/A [facility] For RehabilitationEosinophils/100 WBC Manual cnt (Bld)Ordered By: Jesus Gonzalez on 14-05-6204Jsmqjiligjb/100 WBC (Bld)2 %1-3FProMedica Defiance Regional HospitalErythrocyte distribution width Auto (RBC) [Ratio]Ordered By: Jesus Gonzalez on 20-49-2886Vxazglaints distribution width (RBC) [Ratio]13.9 % 11.9-15.3FProMedica Defiance Regional HospitalFolate [Mass/volume] in Serum or PlasmaOrdered By: Jesus Gonzalez on 79-74-8129Fuzixn [Mass/Vol]7.8 ng/mL>5.9 [facility] RehabilitationComment on above:Folate reference range: >5.9 ng/mlThe WHO technical consultation on folate and vitamin i22cqugcnletcfs has determined that folate concentrations lessthan 4 ng/ml are considered deficient. Globulin Calc (S) [Mass/Vol]Ordered By: Jesus Gonzalez on 16-82-2387Ovebmoji (S) [Mass/Vol]2.0 g/dLCleveland Clinic Children'S Hospital For RehabilitationGlucose [Mass/volume] in Serum or PlasmaOrdered By: Jesus Gonzalez on 28-06-3186Sewnzwd [Mass/Vol]111 mg/dL Wlnt55-255NkhephslgCleveland Clinic Children'S Hospital For RehabilitationComment on above:ADA recommended reference rangeRandom Glucose Reference Range is dependent on time and content of last meal. Glucose of more than 200 mg/dL in a nonstressed, ambulatory subject supports the diagnosisof Diabetes Mellitus.Glucose mean value [Mass/volume] in Blood Estimated from glycated hemoglobinOrdered By: Jesus Gonzalez on 53-01-9175Kkbnshe glucose Estimated from glycated hemoglobin (Bld) [Mass/Vol]114 mg/dLCleveland Clinic Children'S Hospital For RehabilitationHematocrit Auto (Bld) [Volume fraction]Ordered By: Jesus Gonzalez on 98-35-3857Iyznvtgaod (Bld) [Volume fraction]39.1 %34.0-46.4FProMedica Defiance Regional HospitalHemoglobin A1c percentageOrdered By: Jesus Gonzalez 79-71-4891NlQ2x (Bld) [Mass fraction]5.6 % 4.3-5.6FProMedica Defiance Regional HospitalComment on above:Increased risk for diabetes: 5.7 - 6.4diabetes: >6.4glycemic control for adults with diabetes: &l t;7.0Hemoglobin [Mass/volume] in BloodOrdered By: Jesus Gonzalez on 05-12-2024 Hemoglobin (Bld) [Mass/Vol]12.9 g/dL11.8-15.4FProMedica Defiance Regional Hospital Iron [Mass/volume] in Serum or PlasmaOrdered By: Jesus Gonzalez on 61-16-9923Zbim [Mass/Vol]80 ug/vC20-235YkbolcafzCleveland Clinic Children'[facility] Hospital For RehabilitationLeukocytes [#/volume] corrected for nucleated erythrocytes in Blood by Automated counOrdered By: Jesus Gonzalez on [id number] corrected for nucl RBC Auto (Bld) [#/Vol]11.8 10*3/uLHigh3.8-11.6FProMedica Defiance Regional HospitalLymphocytes Auto (Bld) [#/Vol]Ordered By: Jesus Gonzalez on 24-80-0240Fyzcmqtqtms (Bld) [#/Vol]N/A [facility] [facility] For RehabilitationLymphocytes/100 WBC Auto (Bld)Ordered By: Jesus Gonzalez on 11-11-6657Uynscauxuns/100 WBC (Bld)N/[facility] HospitalLymphocytes/100 WBC Manual cnt (Bld)Ordered By: Jesus Gonzalez on 05-12-2024 Lymphocytes/100 WBC (Bld)28 %18-42[facility] RehabilitationMCH Auto (RBC) [Entitic mass]Ordered By: Jesus Gonzalez on 08-58-4749VWG (RBC) [Entitic mass]29.9 pg24.7-34.3FProMedica Defiance Regional HospitalMCHC Auto (RBC) [Mass/Vol] Ordered By: Jesus Gonzalez on 69-73-0571KAWV (RBC) [Mass/Vol]33.0 g/dL32.0-35.0 [facility] RehabilitationMCV Auto (RBC) [Entitic vol]Ordered By: Jesus Gonzalez on 76-58-9014SQT (RBC) [Entitic vol]90.8 hE27-792IavkbapguCleveland Clinic [facility]S Hospital For RehabilitationMetamyelocytes/100 WBC Manual cnt (Bld)Ordered By: Jesus Gonzalez on 80-87-4073Cslmbzirvwijwl/100 WBC (Bld)2 %High0-0[facility] RehabilitationMicrocytes LM Ql (Bld)Ordered By: Jesus Gonzalez on 25-60-0650Oxspfpfqet Ql (Bld)SlightCleveland Clinic Children'S Hospital For RehabilitationMonocytes Auto (Bld) [#/Vol]Ordered By: Jesus Gonzalez on 53-05-1717Izlttddmm (Bld) [#/Vol]N/[facility] HospitalMonocytes/100 WBC Auto (Bld)Ordered By: Jesus Gonzalez on 05-12-2024 Monocytes/100 WBC (Bld)N/[facility] HospitalMonocytes/100 WBC Manual cnt (Bld)Ordered By: Jesus Gonzalez on 90-33-1730Uqnrqlbhv/100 WBC (Bld)12 % High2-11[facility] RehabilitationNeutrophils Auto (Bld) [#/Vol]Ordered By: Jesus Gonzalez on 12-75-9377Gtsvagzpgsk (Bld) [#/Vol]N/[facility] HospitalNeutrophils/100 WBC Auto (Bld)Ordered By: Jesus Gonzalez on 38-21-3919Ivendvizukd/100 WBC (Bld)N/[facility] HospitalNo Panel InformationOrdered By: Jesus Gonzalez on 43-30-4184Oyghgsblr GFR (CKD-EPI)> 60.0 mL/MinCleveland Clinic Children'S Hospital For RehabilitationPharmacy Creatinine Clearance (ChemN/A [facility] RehabilitationNucleated erythrocytes [Presence] in Blood by Automated countOrdered By: Jesus Gonzalez on 42-00-1534Njrgspjgq RBC Auto Ql (Bld) N/[facility] HospitalPlatelet adequacy [Presence] in Blood by Light microscopyOrdered By: Jesus Gonzalez on 77-80-3946Dgbhfpbib LM Ql (Bld)Normal NormalCleveland Clinic Children'S Hospital For RehabilitationPlatelet mean volume Auto (Bld) [Entitic vol]Ordered By: Jesus Gonzalez on 95-08-7584Cnohbbgu mean volume (Bld) [Entitic vol]8.1 fL6.3-10.7FProMedica Defiance Regional HospitalPlatelet morphology finding [Identifier] in BloodOrdered By: Jesus Gonzalez on 22-42-7614Fweksnxq morphology finding Nom (Bld)NormalNormalCleveland Clinic [facility] Hospital For RehabilitationPlatelets Auto (Bld) [#/Vol]Ordered By: Jesus Gonzalez on 39-46-4641Lbnridrqw (Bld) [#/Vol]392 10*3/iK526-771PumgfpzpfCleveland Clinic [facility] Hospital For RehabilitationPotassium [Moles/volume] in Serum or PlasmaOrdered By: Jesus Gonzalez on 05-48-2739Npgawbhmu [Moles/Vol]4.1 mmol/L 3.5-5.1FProMedica Defiance Regional HospitalProtein [Mass/volume] in Serum or Plasma Ordered By: Jesus Gonzalez on 51-49-0529Mvbzxds [Mass/Vol]6.1 g/dLLow6.4-8.9 [facility] For RehabilitationRBC Auto (Bld) [#/Vol]Ordered By: Jesus Gonzalez on 34-06-8921NOJ (Bld) [#/Vol]4.30 10*6/uL3.60-5.00[facility] RehabilitationRB morphologyOrdered By: Jesus Gonzalez on 45-58-1168OWE morphology finding Nom (Bld)N/AFBerger Hospitalegmented neutrophils/100 WBC Manual cnt (Bld)Ordered By: Jesus Gonzalez on 50-06-3299Pyfmdnwoz neutrophils/100 WBC (Bld)54 %50-70[facility] Medical Centererum or plasma albumin/globulin mass ratioOrdered By: Jesus Gonzalez on 97-09-0795Nichrho/Globulin [Mass ratio]2.1 {ratio}[facility] Medical Centererum or plasma anion gap determinationOrdered By: Jesus Gnozalez on 93-49-4971Yzdxt gap [Moles/Vol]12.1 mmol/L6.0-15.0[facility] Medical Centererum or plasma high density lipoprotein (HDL) cholesterol measurementOrdered By: Jesus Gonzalez on 05-12-2024 Cholesterol in HDL [Mass/Vol]86 mg/bT88-83ZcjrisgabCleveland Clinic [facility] Comment on above:HDL CHOL ATP-III CLASSIFICATION Cardiovascular RiskHDL > or equal to 60 mg/dL LOWHDL < 40 mg/dL HIGHSerum or plasma insulin measurement (units/volume)Ordered By: Jesus Gonzalez on 96-59-0732Auopmjj Qn38.1 u[iU]/mLHigh 2.6-24.9[facility] RehabilitationComment on above:Performed at: - [facility] [address] [id number] Director: Maxim Daniel PhD, Phone: [phone] or plasma total cholesterol/high density lipoprotein (HDL) cholesterol mass ratOrdered By: Jesus Gonzalez on 05-12-2024 Cholesterol.total/Cholesterol in HDL [Mass ratio]2.2 {ratio}<5.0[facility] Medical Centerodium [Moles/volume] in Serum or PlasmaOrdered By: Jesus Gonzalez on 37-74-1938Hldsiu [Moles/Vol]136 mmol/Y024-305XvhbpbmwoCleveland Clinic [facility]S Hospital For RehabilitationThyrotropin [Units/volume] in Serum or PlasmaOrdered By: Jesus Gonzalez on 52-76-8167XAH Qn6.32 m[IU]/LHigh0.45-5.33[facility] RehabilitationThyroxine (T4) [Mass/volume] in Serum or PlasmaOrdered By: Jesus Gonzalez on 58-00-9316K2 [Mass/Vol]11.59 ug/dL5.39-11.82[facility] Triglyceride [Mass/volume] in Serum or PlasmaOrdered By: Jesus Gonzalez on 67-95-1940Ttjqjhvsovwn [Mass/Vol]146 mg/dL0-149[facility] Comment on above:TRIG ATP III CLASSIFICATIONTRIG less than 150 mg/dL NormalTRIG 150-199 mg/dL Borderline highTRIG 200-500 mg/dL High TRIG greater than 500 mg/dL Very highStandard traceable to the Center for Disease Conrtrol and Prevention (CDC) test method.Triiodothyronine (T3) Free [Mass/volume] in Serum or Plasma Ordered By: Jesus Gonzalez on 39-70-8305Yfbh T3 [Mass/Vol]3.61 pg/mL2.50-3.90 [facility] RehabilitationUrea nitrogen [Mass/volume] in Serum or Plasma Ordered By: Jesus Gonzalez on 38-50-4817Oqhb nitrogen [Mass/Vol]20 mg/dL7-25 [facility] RehabilitationVitamin B12 ser/plasOrdered By: Jesus Gonzalez on 39-75-5483Agypqxszq (Vitamin B12) [Mass/Vol]306 pg/wW558-461ZkucqxeywCleveland Clinic Children'S Hospital For RehabilitationVitamin D+Metabolites [Mass/volume] in Serum or PlasmaOrdered By: Jesus Gonzalez on 37-71-1452Flyllge D+Metabolites [Mass/Vol]39.9 ng/dP01-051 [facility] RehabilitationComment on above:VITAMIN D STATUS 25(OH)VITAMIN D RANGE (ng/mL) Deficient <20 Insufficient 20 to <94Mslzxiwgwn43 to 100Reference: Nain MF,nAum LAURA, Brynn APARICIO et al. Evaluation,treatment, and prevention of vitamin D deficiency; an Endocrine Society clinical practice guideline. JCEM. 2010; 96(7):1911-30.WBC Auto (Bld) [#/Vol]Ordered By: Jesus Smithpiedad on 94-62-5934CNC (Bld) [#/Vol]11.8 10*3/uL High3.8-11.6FProMedica Defiance Regional HospitalCT BRAIN WO IVCONon 97-80-1601BG BRAIN WO IVCON* * *Final Report* * * DATE OF EXAM: Jan 29 2024 1:02PM [facility] 0504 - CT BRAIN WO IVCON / [...] soft tissue component identified in the orbit. Company Doctor: GUANACO Transcribe Date/Time: Jan 31 2024 3:33P Dictated by : NATIVIDAD PRIEST MD This examination was interpreted and the report reviewed and electronically signed by: NATIVIDAD PRIEST MD on Jan 31 2024 3:37PM EST [id number] Psychiatric CenterMRI SKULL BASE WO/W IVCONon [id number] SKULL BASE WO/W IVCON* * *Final Report* * * DATE OF EXAM: Jan 29 2024 1:56PM [facility] 0319 - MRI SKULL BASE WO/W IVCON [...] tissue mass extending into the of the marker machine or parapharyngeal spaces. The soft tissue planes of the, retropharyngeal, and prevertebral spaces are maintained. The visualized parotid glands are normal in appearance. Nasopharynx/Oropharynx: The nasopharynx and oropharynx are normal in appearance. 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 Company Doctor: GUANACO Transcribe Date/Time: Jan 31 2024 5:10P Dictated by : WESTLEY IYER MD This examination was interpreted and the report reviewed and electronically signed by: WESTLEY IYER MD on Jan 31 2024 5:28PM EST [id number] Psychiatric CenterAlanine aminotransferase [Enzymatic activity/volume] in Serum or PlasmaOrdered By: Zulema Wood on 37-49-6938VDF [Catalytic activity/Vol]22 U/L7-52[facility] RehabilitationAspartate aminotransferase [Enzymatic activity/volume] in Serum or Plasma Ordered By: Zulema Wood on 65-88-0933UWR [Catalytic activity/Vol]16 U/L13-39 [facility] RehabilitationBasophils Auto (Bld) [#/Vol]Ordered By: Zulema Wood on 16-18-8293Qwjzzmsfp (Bld) [#/Vol]0.1 10*3/uL0.0-0.2FProMedica Defiance Regional HospitalBasophils/100 WBC Auto (Bld)Ordered By: Zulema Wood on 01-08-2024 Basophils/100 WBC (Bld)1.1 %.[facility] RehabilitationCreatinine [Mass/volume] in Serum or PlasmaOrdered By: Zulema Wood on 17-75-0447Rdzwujmbaf [Mass/Vol]1.00 mg/dL0.60-1.20[facility] RehabilitationEosinophils Auto (Bld) [#/Vol]Ordered By: Zulema Wood on 20-62-8921Zsrcubrtmhx (Bld) [#/Vol]0.1 10*3/uL0.0-0.45[facility] RehabilitationEosinophils/100 WBC Auto (Bld) Ordered By: Zulema Wood on 26-82-6215Cbnhdhgzron/100 WBC (Bld)1.8 %.[facility] RehabilitationErythrocyte distribution width Auto (RBC) [Ratio]Ordered By: Zulema Wood on 59-24-6632Bhzqfkwbmdu distribution width (RBC) [Ratio]13.1 % 11.9-15.3FProMedica Defiance Regional HospitalHematocrit Auto (Bld) [Volume fraction]Ordered By: Zulema Wood on 16-37-7609Dwygnicsxq (Bld) [Volume fraction]39.2 %34.0-46.4FProMedica Defiance Regional HospitalHemoglobin [Mass/volume] in BloodOrdered By: Zulema Wood on 13-41-9832Ntzbtgrxbh (Bld) [Mass/Vol]13.1 g/dL11.8-15.4FProMedica Defiance Regional HospitalLeukocytes [#/volume] corrected for nucleated erythrocytes in Blood by Automated coun Ordered By: Zulema Wood on 28-58-9156WTN corrected for nucl RBC Auto (Bld) [#/Vol]6.8 10*3/uL3.8-11.6FProMedica Defiance Regional HospitalLymphocytes Auto (Bld) [#/Vol]Ordered By: Zulema Wood on 33-16-4972Wmzmoyfukbt (Bld) [#/Vol]2.0 10*3/uL1.00-4.8[facility] RehabilitationLymphocytes/100 WBC Auto (Bld) Ordered By: Zulema Wood on 83-84-5823Kfdhaqihrjc/100 WBC (Bld)29.3 %.[facility] For RehabilitationMCH Auto (RBC) [Entitic mass]Ordered By: Zulema Wood on 11-13-6977VAI (RBC) [Entitic mass]30.6 pg24.7-34.3FProMedica Defiance Regional HospitalMCHC Auto (RBC) [Mass/Vol]Ordered By: Zulema Wood on 16-38-4629HATK (RBC) [Mass/Vol]33.4 g/dL32.0-35.0[facility] RehabilitationMCV Auto (RBC) [Entitic vol]Ordered By: Zulema Wood on 74-33-0365AYI (RBC) [Entitic vol]91.5 iZ66-797XritfqujqCleveland Clinic [facility] For RehabilitationMonocytes Auto (Bld) [#/Vol]Ordered By: Zulema Wood on 89-71-5810Dvqkwwyms (Bld) [#/Vol]0.8 10*3/uL0.0-0.8[facility] RehabilitationMonocytes/100 WBC Auto (Bld)Ordered By: Zulema Wood on 72-77-7838Bichtxkwp/100 WBC (Bld)11.3 %.[facility] Neutrophils Auto (Bld) [#/Vol]Ordered By: Zulema Wood on 47-76-8287Vbopceujjhf (Bld) [#/Vol]3.9 10*3/uL1.8-7.7FProMedica Defiance Regional HospitalNeutrophils/100 WBC Auto (Bld)Ordered By: Zulema oWod on 90-66-9882Bcqegjehjgi/100 WBC (Bld) 56.5 %.[facility] RehabilitationNo Panel InformationOrdered By: Zulema Wood on 81-42-6365Gxogiyqng GFR (CKD-EPI)> 60.0 mL/MinCleveland Clinic Children'S Hospital For RehabilitationPharmacy Creatinine Clearance (ChemN/AFProMedica Defiance Regional HospitalNucleated erythrocytes [Presence] in Blood by Automated countOrdered By: Zulema Wood on 90-85-5083Lbkdzsuhh RBC Auto Ql (Bld)0.1 /100{WBC}0-0.5FProMedica Defiance Regional HospitalPlatelet mean volume Auto (Bld) [Entitic vol]Ordered By: Zulema Wood on 70-66-0704Yaiirwpz mean volume (Bld) [Entitic vol]8.4 fL6.3-10.7 [facility] RehabilitationPlatelets Auto (Bld) [#/Vol]Ordered By: Zulema Wood on 40-53-7433Jidbcffqs (Bld) [#/Vol]284 10*3/oZ606-564JobioupcfCleveland Clinic Children'S Hospital For RehabilitationRBC Auto (Bld) [#/Vol]Ordered By: Zulema Wood on 95-62-2277BVT (Bld) [#/Vol]4.29 10*6/uL3.60-5.00[facility] RehabilitationWBC Auto (Bld) [#/Vol]Ordered By: Zulema Wood on 96-92-8129CFA (Bld) [#/Vol]6.8 10*3/uL 3.8-11.6FProMedica Defiance Regional HospitalBasophils Auto (Bld) [#/Vol]Ordered By: Jesus Gonzalez on 35-70-0521Viwtyxwok (Bld) [#/Vol]0.1 10*3/uL0.0-0.2FProMedica Defiance Regional HospitalBasophils/100 WBC Auto (Bld)Ordered By: Jesus Gonzalez on 68-47-5673Pdwqjwggp/100 WBC (Bld)1.0 %.[facility] Eosinophils Auto (Bld) [#/Vol]Ordered By: Jesus Gonzalez on 42-06-7960Orzayjgwmer (Bld) [#/Vol]0.1 10*3/uL0.0-0.45[facility] RehabilitationEosinophils/100 WBC Auto (Bld)Ordered By: Jesus Gonzalez on 97-72-9336Juzrmecubah/100 WBC (Bld)1.3 %.[facility] For RehabilitationErythrocyte distribution width Auto (RBC) [Ratio]Ordered By: Jesus Gonzalez on 30-99-3368Qynzqqohkdk distribution width (RBC) [Ratio]13.3 %11.9-15.3FProMedica Defiance Regional HospitalFerritin [Mass/volume] in Serum or PlasmaOrdered By: Jesus Gonzalez on 39-72-6281Wfcdvqwg [Mass/Vol]88.4 ng/mL11.0-306.8[facility] For RehabilitationHematocrit Auto (Bld) [Volume fraction]Ordered By: Jesus Gonzalez on 81-24-0469Nalphcvevy (Bld) [Volume fraction] 39.9 %34.0-46.4FProMedica Defiance Regional HospitalHemoglobin [Mass/volume] in BloodOrdered By: Jesus Gonzalez on 85-53-8370Pafkinupdr (Bld) [Mass/Vol]13.0 g/dL 11.8-15.4FProMedica Defiance Regional HospitalIron [Mass/volume] in Serum or Plasma Ordered By: Jesus Gonzalez on 85-12-3575Urxr [Mass/Vol]93 ug/wY01-295LmrbzbpuvCleveland Clinic Children'S Hospital For RehabilitationLeukocytes [#/volume] corrected for nucleated erythrocytes in Blood by Automated counOrdered By: Jesus Gonzalez on 89-59-1822RJI corrected for nucl RBC Auto (Bld) [#/Vol]8.7 10*3/uL3.8-11.6FProMedica Defiance Regional HospitalLymphocytes Auto (Bld) [#/Vol]Ordered By: Jesus Gonzalez on 39-78-7858Dombiszvopj (Bld) [#/Vol]3.7 10*3/uL1.00-4.8[facility] For RehabilitationLymphocytes/100 WBC Auto (Bld)Ordered By: Jesus Gonzalez on 11-11-2023 Lymphocytes/100 WBC (Bld)42.6 %.[facility] HospitalH Auto (RBC) [Entitic mass]Ordered By: Jesus Gonzalez on 78-11-1803AAK (RBC) [Entitic mass]30.0 pg24.7-34.3FProMedica Defiance Regional HospitalMCHC Auto (RBC) [Mass/Vol]Ordered By: Jesus Gonzalez on 82-78-2061ORBC (RBC) [Mass/Vol]32.6 g/dL32.0-35.0[facility] For RehabilitationMCV Auto (RBC) [Entitic vol]Ordered By: Jesus Gonzalez on 31-72-5428HQY (RBC) [Entitic vol]92.1 zN51-404DktmxdlcfC[facility] Clinic [facility] Monocytes Auto (Bld) [#/Vol]Ordered By: Jesus Gonzalez on 49-37-7657Lesbtzxrj (Bld) [#/Vol]0.9 10*3/uL0.0-0.8[facility] RehabilitationMonocytes/100 WBC Auto (Bld)Ordered By: Jesus Gonzalez on 00-97-4902Lvppaemtt/100 WBC (Bld)9.8 %. [facility] RehabilitationNeutrophils Auto (Bld) [#/Vol]Ordered By: Jesus Gonzalez on 19-72-6990Eznivcvitch (Bld) [#/Vol]4.0 10*3/uL1.8-7.7FProMedica Defiance Regional HospitalNeutrophils/100 WBC Auto (Bld)Ordered By: Jesus Gonzalez on 23-49-4626Ogznljimjfp/100 WBC (Bld)45.3 %.[facility] Nucleated erythrocytes [Presence] in Blood by Automated countOrdered By: Jesus Gonzalez on 10-87-6370Mkobidxsu RBC Auto Ql (Bld)0.1 /100{WBC}0-0.5FProMedica Defiance Regional HospitalPlatelet mean volume Auto (Bld) [Entitic vol]Ordered By: Jesus Gonzalez on 84-03-7175Eardjwna mean volume (Bld) [Entitic vol]9.0 fL6.3-10.7 [facility] RehabilitationPlatelets Auto (Bld) [#/Vol]Ordered By: Jesus Gonzalez on 03-27-0559Ktaatqrho (Bld) [#/Vol]363 10*3/bS221-070HrncowvqnCleveland Clinic Children'S Hospital For RehabilitationRBC Auto (Bld) [#/Vol]Ordered By: Jesus Gonzalez on 45-90-8648RKQ (Bld) [#/Vol]4.34 10*6/uL3.60-5.00[facility] RehabilitationWBC Auto (Bld) [#/Vol]Ordered By: Jesus Gonzalez on 65-52-8435VSV (Bld) [#/Vol]8.7 10*3/uL 3.8-11.6FProMedica Defiance Regional HospitalAlanine aminotransferase [Enzymatic activity/volume] in Serum or PlasmaOrdered By: Jesus Gonzalez on 03-30-1894PJJ [Catalytic activity/Vol]14 U/L7-52[facility] RehabilitationAlbumin [Mass/volume] in Serum or Plasma by Bromocresol green (BCG) dye binding metho Ordered By: Jesus Gonzalez on 05-68-8035Ipgpcxz BCG dye [Mass/Vol]4.1 g/dL3.5-5.7 [facility] For RehabilitationAlkaline phosphatase [Enzymatic activity/volume] in Serum or PlasmaOrdered By: eJsus Gonzalez on 42-69-3650GIC [Catalytic activity/Vol]45 U/W82-074FkmgdkobtCleveland Clinic [facility] Hospital For RehabilitationAspartate aminotransferase [Enzymatic activity/volume] in Serum or PlasmaOrdered By: Jesus Gonzalez on 69-15-0260VDZ [Catalytic activity/Vol]12 U/Y01-57TkjfnubvtCleveland Clinic [facility] Hospital For RehabilitationBasophils Auto (Bld) [#/Vol]Ordered By: Jesus Gonzalez on 89-26-5230Kqrtmivuf (Bld) [#/Vol]0.1 10*3/uL0.0-0.2FProMedica Defiance Regional HospitalBasophils/100 WBC Auto (Bld)Ordered By: Jesus Gonzalez on 05-22-2023 Basophils/100 WBC (Bld)0.9 %.[facility] RehabilitationBilirubin.total [Mass/volume] in Serum or PlasmaOrdered By: Jesus Gonzalez on 66-03-8377Czidrvnzx [Mass/Vol]0.3 mg/dL0.3-1.0[facility] RehabilitationCalcium [Mass/volume] in Serum or PlasmaOrdered By: Jesus Gonzalez 82-43-6567Zdsujek [Mass/Vol]9.5 mg/dL8.6-10.3FProMedica Defiance Regional HospitalCarbon dioxide, total [Moles/volume] in Serum or PlasmaOrdered By: Jesus Gonzalez on 12-75-0278XU6 [Moles/Vol]25.4 mmol/L21.0-31.0[facility] RehabilitationChloride [Moles/volume] in Serum or PlasmaOrdered By: Jesus Gonzalez on 62-01-3855Ptqaaebi [Moles/Vol]106 mmol/T13-829JxktchhktCleveland Clinic [facility] Hospital For RehabilitationCholesterol [Mass/volume] in Serum or PlasmaOrdered By: Jesus Gonzalez on 55-23-8471Vmtwuciuuvq [Mass/Vol]182 mg/fF338-933NymzvwdthCleveland Clinic Children'S Hospital For RehabilitationComment on above: Chol less than 200 mg/dl low riskChol 201-239 mg/dl borderline riskChol 240 mg/dl and greater high riskCholesterol in LDL Calc [Mass/Vol]Ordered By: Jesus Gonzalez on 83-02-2003Lrvwpzrgsys in LDL [Mass/Vol]58 mg/dL0-100[facility] RehabilitationComment on above:LDL ATP III CLASSIFICATIONLDL less than 100 mg/dL OptimalLDL 100-129 mg/dL Near or above yewzzarGUI568-075 mg/dL Borderline highLDL 160-189 mg/dL HighLDL greater than 189 mg/dL Very highCholesterol in VLDL Calc [Mass/Vol]Ordered By: Jesus Gonzalez on 74-72-5283Dsefmihqpxy in VLDL [Mass/Vol]44 mg/dLCleveland Clinic Children'S Hospital For RehabilitationCreatinine [Mass/volume] in Serum or PlasmaOrdered By: Jesus Gonzalez on 49-83-0423Uclfymvnzc [Mass/Vol]0.89 mg/dL0.60-1.20[facility] RehabilitationEosinophils Auto (Bld) [#/Vol] Ordered By: Jesus Gonzalez on 68-32-0324Zddaiqestzx (Bld) [#/Vol]0.1 10*3/uL 0.0-0.45[facility] RehabilitationEosinophils/100 WBC Auto (Bld)Ordered By: Jesus Gonzalez on 31-49-6174Vekgjygafpp/100 WBC (Bld)1.3 %.[facility] RehabilitationErythrocyte distribution width Auto (RBC) [Ratio]Ordered By: Jesus Gonzalez on 04-10-8735Owtwlgltdjn distribution width (RBC) [Ratio]20.4 % 11.9-15.3FProMedica Defiance Regional HospitalFerritin [Mass/volume] in Serum or PlasmaOrdered By: Jesus Gonzalez on 44-49-6190Ozhatzvo [Mass/Vol]147.2 ng/mL 11.0-306.8[facility] For RehabilitationGlobulin Calc (S) [Mass/Vol]Ordered By: Jesus Gonzalez on 13-38-3886Zrplphyr (S) [Mass/Vol]1.8 g/dLCleveland Clinic Children'S Hospital For RehabilitationGlucose [Mass/volume] in Serum or PlasmaOrdered By: Jesus Gonzalez on 09-44-9784Rsdzhme [Mass/Vol]88 mg/mX08-294VegnyyqveCleveland Clinic [facility] Comment on above:ADA recommended reference rangeRandom Glucose Reference Range is dependent on time and content of last meal. Glucose of more than 200 mg/dL in a nonstressed, ambulatory subject supports the diagnosisof Diabetes Mellitus. Glucose mean value [Mass/volume] in Blood Estimated from glycated hemoglobin Ordered By: Jesus Gonzalez on 58-08-7875Sawqotu glucose Estimated from glycated hemoglobin (Bld) [Mass/Vol]105 mg/dLCleveland Clinic Children'S Hospital For RehabilitationHematocrit Auto (Bld) [Volume fraction]Ordered By: Jesus Gonzalez on 67-28-5216Utyyqjnpdd (Bld) [Volume fraction]37.0 %34.0-46.4FProMedica Defiance Regional Hospital Hemoglobin A1c percentageOrdered By: Jesus Gonzalez on 67-68-6824KmT2b (Bld) [Mass fraction]5.3 %4.3-5.6FProMedica Defiance Regional HospitalComment on above:Increased risk for diabetes: 5.7 - 6.4diabetes: >6.4glycemic control for adults with diabetes: <7.0Hemoglobin [Mass/volume] in BloodOrdered By: Jesus Gonzalez on 24-73-8780Bywfikerhi (Bld) [Mass/Vol]11.9 g/dL11.8-15.4FProMedica Defiance Regional HospitalIron [Mass/volume] in Serum or PlasmaOrdered By: Jesus Gonzalez on 38-19-3821Qrwd [Mass/Vol]57 ug/bQ35-168ZqtvdbxvoC[facility] Clinic [facility] Leukocytes [#/volume] corrected for nucleated erythrocytes in Blood by Automated counOrdered By: Jesus Gonzalez on 27-58-2723FBM corrected for nucl RBC Auto (Bld) [#/Vol]9.6 10*3/uL3.8-11.6FProMedica Defiance Regional HospitalLymphocytes Auto (Bld) [#/Vol]Ordered By: Jesus Gonzalez on 49-68-2572Dcltpndgwmj (Bld) [#/Vol]2.2 10*3/uL1.00-4.8[facility] RehabilitationLymphocytes/100 WBC Auto (Bld) Ordered By: Jesus Gonzalez on 69-44-8665Bfbudardpmn/100 WBC (Bld)22.5 %.[facility] HospitalH Auto (RBC) [Entitic mass]Ordered By: Jesus Gonzalez on 72-48-9202XTA (RBC) [Entitic mass]27.7 pg24.7-34.3FProMedica Defiance Regional HospitalMCHC Auto (RBC) [Mass/Vol]Ordered By: Jesus Gonzalez on 41-31-4163VTNP (RBC) [Mass/Vol]32.2 g/dL32.0-35.0[facility] RehabilitationMCV Auto (RBC) [Entitic vol]Ordered By: Jesus Gonzalez on 84-85-1998QPW (RBC) [Entitic vol]85.8 fL 80-100[facility] RehabilitationMonocytes Auto (Bld) [#/Vol]Ordered By: Jesus Gonzalez on 41-94-2328Qypjyvqxb (Bld) [#/Vol]1.0 10*3/uL0.0-0.8[facility] RehabilitationMonocytes/100 WBC Auto (Bld)Ordered By: Jesus Gonzalez on 79-50-1287Cwefhzyoc/100 WBC (Bld)9.9 %.[facility] Neutrophils Auto (Bld) [#/Vol]Ordered By: Jesus Gonzalez on 63-71-3031Irzrvdsbfnk (Bld) [#/Vol]6.3 10*3/uL1.8-7.7FProMedica Defiance Regional HospitalNeutrophils/100 WBC Auto (Bld)Ordered By: Jesus Gonzalez on 45-22-7821Eiscmhsimdj/100 WBC (Bld)65.4 %.[facility] RehabilitationNo Panel InformationOrdered By: Jesus Gonzalez on 88-14-8071Jgybajnlp GFR (CKD-EPI)> 60.0 mL/MinCleveland Clinic Children'S Hospital For RehabilitationPharmacy Creatinine Clearance (ChemN/AFProMedica Defiance Regional Hospital Nucleated erythrocytes [Presence] in Blood by Automated countOrdered By: Jesus Gonzalez on 23-33-7991Kxqmeaoqi RBC Auto Ql (Bld)0.1 /100{WBC}0-0.5FProMedica Defiance Regional HospitalPlatelet mean volume Auto (Bld) [Entitic vol]Ordered By: Jesus Gonzalez on 42-93-4003Aozpbbck mean volume (Bld) [Entitic vol]9.0 fL6.3-10.7 [facility] For RehabilitationPlatelets Auto (Bld) [#/Vol]Ordered By: Jesus Gonzalez on 77-76-4057Ergqosufo (Bld) [#/Vol]339 10*3/pN136-106ZpnhkzlfmCleveland Clinic Children'S Hospital For RehabilitationPotassium [Moles/volume] in Serum or PlasmaOrdered By: Jesus Gonzalez on 57-98-5752Odcprgohk [Moles/Vol]3.9 mmol/L3.5-5.1FProMedica Defiance Regional HospitalProtein [Mass/volume] in Serum or PlasmaOrdered By: Jesus Gonzalez on 44-82-0443Fxdmlkf [Mass/Vol]5.9 g/dL6.4-8.9[facility] RehabilitationRBC Auto (Bld) [#/Vol]Ordered By: Jesus Gonzalez on 17-90-4802ERW (Bld) [#/Vol]4.31 10*6/uL3.60-5.00[facility] Centererum or plasma albumin/globulin mass ratioOrdered By: Jesus Gonzalez on 51-63-5957Mlustrr/Globulin [Mass ratio]2.3 {ratio}[facility] Centererum or plasma anion gap determinationOrdered By: Jesus Gonzalez on 72-27-3857Hwyoz gap [Moles/Vol]10.5 mmol/L6.0-15.0[facility] Centererum or plasma high density lipoprotein (HDL) cholesterol measurementOrdered By: Jesus Gnozalez on 05-22-2023 Cholesterol in HDL [Mass/Vol]79 mg/aY32-23RgwtnxjgkCleveland Clinic [facility] Comment on above:HDL CHOL ATP-III CLASSIFICATION Cardiovascular RiskHDL > or equal to 60 mg/dL LOWHDL < 40 mg/dL HIGHSerum or plasma total cholesterol/high density lipoprotein (HDL) cholesterol mass ratOrdered By: Jesus Gonzalez on 49-22-0499Ztccvcgqxeb.total/Cholesterol in HDL [Mass ratio]2.3 {ratio}<5.0 [facility] Centerodium [Moles/volume] in Serum or PlasmaOrdered By: Jesus Gonzalez on 21-85-8044Gnofwl [Moles/Vol]138 mmol/U920-503HskjqvmcpCleveland Clinic Children'S Hospital For RehabilitationThyrotropin [Units/volume] in Serum or PlasmaOrdered By: Jesus Gonzalez on 75-60-5686IQH Qn3.27 m[IU]/L0.45-5.33[facility] For RehabilitationThyroxine (T4) free [Mass/volume] in Serum or PlasmaOrdered By: Jesus Gonzalez on 25-61-6045Nbtj T4 [Mass/Vol]0.91 ng/dL0.61-1.12[facility] For RehabilitationTriglyceride [Mass/volume] in Serum or PlasmaOrdered By: Jesus Gonzalez on 06-23-1943Ospvmdirncih [Mass/Vol]223 mg/dL0-149[facility] Comment on above:TRIG ATP III CLASSIFICATIONTRIG less than 150 mg/dL NormalTRIG 150-199 mg/dL Borderline highTRIG 200-500 mg/dL High TRIG greater than 500 mg/dL Very highStandard traceable to the Center for Disease Conrtrol and Prevention (CDC) test method.Urea nitrogen [Mass/volume] in Serum or PlasmaOrdered By: Jesus Gonzalez on 52-07-8997Pcoj nitrogen [Mass/Vol]10 mg/dL7-25[facility] RehabilitationWBC Auto (Bld) [#/Vol]Ordered By: Jesus Gonzalez on 50-53-4007PXC (Bld) [#/Vol]9.6 10*3/uL3.8-11.6FProMedica Defiance Regional HospitalBasophils Auto (Bld) [#/Vol]Ordered By: Jesus Gonzalez on 16-02-3596Reypqeier (Bld) [#/Vol]0.1 10*3/uL0.0-0.2FProMedica Defiance Regional HospitalBasophils/100 WBC Auto (Bld) Ordered By: Jesus Gonzalez on 75-40-5818Nhyacpfot/100 WBC (Bld)0.8 %.[facility] For RehabilitationEosinophils Auto (Bld) [#/Vol]Ordered By: Jesus Gonzalez on 14-65-6794Rymvrgwimyb (Bld) [#/Vol]0.1 10*3/uL0.0-0.45[facility] RehabilitationEosinophils/100 WBC Auto (Bld)Ordered By: Jesus Gonzalez on 04-15-2023 Eosinophils/100 WBC (Bld)1.3 %.[facility] RehabilitationErythrocyte distribution width Auto (RBC) [Ratio]Ordered By: Jesus Gonzalez on 04-15-2023 Erythrocyte distribution width (RBC) [Ratio]15.8 %11.9-15.3FProMedica Defiance Regional HospitalFerritin [Mass/volume] in Serum or PlasmaOrdered By: Jesus Gonzalez on 57-22-7287Xahiuany [Mass/Vol]5.1 ng/mL11.0-306.8[facility] RehabilitationHematocrit Auto (Bld) [Volume fraction]Ordered By: Jesus Gonzalez on 69-45-6581Gekchqxkmj (Bld) [Volume fraction]35.0 %34.0-46.4FProMedica Defiance Regional HospitalHemoglobin [Mass/volume] in BloodOrdered By: Jesus Gonzalez on 83-83-8540Qwibzwgejm (Bld) [Mass/Vol]11.2 g/dL11.8-15.4FProMedica Defiance Regional HospitalIron [Mass/volume] in Serum or PlasmaOrdered By: Jesus Gonzalez on 56-46-3938Ypfl [Mass/Vol]18 ug/mS72-361FpkgozrmkCleveland Clinic [facility]S [facility] Rehabilitation Leukocytes [#/volume] corrected for nucleated erythrocytes in Blood by Automated counOrdered By: Jesus Gonzalez on 29-46-2444NKN corrected for nucl RBC Auto (Bld) [#/Vol]9.6 10*3/uL3.8-11.6FProMedica Defiance Regional HospitalLymphocytes Auto (Bld) [#/Vol]Ordered By: Jesus Gonzalez on 95-50-6836Eaobqmnnuhe (Bld) [#/Vol]2.2 10*3/uL1.00-4.8[facility] RehabilitationLymphocytes/100 WBC Auto (Bld) Ordered By: Jesus Gonzalez on 78-48-2994Unzmykbzgcp/100 WBC (Bld)23.3 %.[facility] HospitalH Auto (RBC) [Entitic mass]Ordered By: Jesus Gonzalez on 73-83-6319MVN (RBC) [Entitic mass]26.0 pg24.7-34.3FProMedica Defiance Regional HospitalMCHC Auto (RBC) [Mass/Vol]Ordered By: Jesus Gonzalez on 29-74-8959SXTM (RBC) [Mass/Vol]32.0 g/dL32.0-35.0[facility] RehabilitationMCV Auto (RBC) [Entitic vol]Ordered By: Jesus Gonzalez on 34-06-0264ONK (RBC) [Entitic vol]81.2 fL 80-100[facility] RehabilitationMonocytes Auto (Bld) [#/Vol]Ordered By: Jesus Gonzalez on 25-50-4696Joiamblmt (Bld) [#/Vol]0.7 10*3/uL0.0-0.8[facility] RehabilitationMonocytes/100 WBC Auto (Bld)Ordered By: Jesus Gonzalez on 15-07-5041Jskxvympk/100 WBC (Bld)7.7 %.[facility] Neutrophils Auto (Bld) [#/Vol]Ordered By: Jesus Gonzalez on 25-79-9777Sgqjovznlqe (Bld) [#/Vol]6.4 10*3/uL1.8-7.7FProMedica Defiance Regional HospitalNeutrophils/100 WBC Auto (Bld)Ordered By: Jesus Gonzalez on 12-32-0772Bhcixgjnbtz/100 WBC (Bld)66.9 %.[facility] RehabilitationNucleated erythrocytes [Presence] in Blood by Automated countOrdered By: Jesus Gonzalez on 54-79-0943Qvvoiaclg RBC Auto Ql (Bld)0.4 /100{WBC}0-0.5FProMedica Defiance Regional HospitalPlatelet mean volume Auto (Bld) [Entitic vol]Ordered By: Jesus Carlos on 60-26-2839Ovlqnzqa mean volume (Bld) [Entitic vol]9.1 fL6.3-10.7FProMedica Defiance Regional Hospital Platelets Auto (Bld) [#/Vol]Ordered By: Jesus Carlos on 34-53-9388Pxnedhcqr (Bld) [#/Vol]427 10*3/qT268-921EpwqaozrpCleveland Clinic Children'S Hospital For RehabilitationRBC Auto (Bld) [#/Vol]Ordered By: Jesus Carlos on 32-68-2496XDL (Bld) [#/Vol]4.31 10*6/uL 3.60-5.00[facility] RehabilitationWBC Auto (Bld) [#/Vol]Ordered By: Jesus Gonzalez on 36-47-1037TQY (Bld) [#/Vol]9.6 10*3/uL3.8-11.6FProMedica Defiance Regional HospitalBNPon 42-27-0350Flbhairyfhl peptide B (Bld) [Mass/Vol]173.0 pg/mL Normal<=450.0The [facility] HospitalComment on above:Performed By: #### LACT #### [facility] [address] [place] [address] Dr. Ko Blas W MANUAL DIFFon 11-40-9658PCZNCAWO LYMPH #0.18 103/ulNormal The [facility] HospitalComment on above:Performed By: #### ISAIAHMAN #### [facility] [address] [place] [address] Dr. Ko RogerYPICAL LYMPH %2 %NormalThe [facility]rington HospitalComment on above: Performed By: #### CBCMAN #### [facility] [address] [place] [address] Dr. Ko Gould #0.0 103/ulNormal0.0-0.3The [facility] HospitalComment on above:Performed By: #### CBCMAN #### [facility] [address] [place] [address] Dr. Ko Gould %0 %Normal0-5The [facility] HospitalComment on above:Performed By: #### CBCCHRISTIANO #### [facility] [address] [address] [address] Ko Martinez #0.00 103/ulNormal0.00-0.10The [facility] HospitalComment on above:Performed By: #### CBCCHRISTIANO #### [facility] [address] [place] [address] Dr. Ko Martinez %0.0 %Critically low0.2-2.0The [facility] HospitalComment on above:Performed By: #### CBCCHRISTIANO #### [facility] [address] [place] [address] Dr. Ko Whaley #NormalThe [facility]tona HospitalComment on above:Performed By: #### NICOLETTE #### [facility] [address] [place] [address] Dr. Ko Whaley %NormalThe [facility] HospitalComment on above:Performed By: #### NICOLETTE #### [facility] [address] [place] [address] Dr. Ko StephenCORRECTED WBCNormal4.0-11.0The [facility] HospitalComment on above: Performed By: #### NICOLETTE #### [facility] [address] [place] [address] Dr. Ko Kim #0.00 103/ulNormal0.00-0.70The [facility] HospitalComment on above:Performed By: #### CBCCHRISTIANO #### [facility] [address] [place] [address] Dr. Ko Kim%0.0 %Critically low0.9-7.0The [facility]a HospitalComment on above:Performed By: #### NICOLETTE #### [facility] [address] [place] [address] Dr. Ko StephenHCT32.8 %Critically low36.0-48.0The [facility] HospitalComment on above:Performed By: #### CBCCHRISTIANO #### [facility] [address] [place] [address] Dr. Ko StephenHGB11.1 g/dlCritically low12.0-16.0[facility] HospitalComment on above:Performed By: #### NICOLETTE #### [facility] [address] [address] [address] Ko Palacios #0.18 103/ulCritically low1.20-3.80[facility] Comment on above:Performed By: #### NICOLETTE #### [facility] [address] [address] [address] Ko Palacios%2.0 %Critically low20.5-60.0The [facility] HospitalComment on above:Performed By: #### NICOLETTE #### [facility] [address] [place] [address] Dr. Ko TinocoH27.7 idRgwgym86.7-34.0The [facility] HospitalComment on above: Performed By: #### NICOLETTE #### [facility] [address] [place] [address] Dr. Ko TinocoHC33.8 g/knGvqkeq93.9-35.2The [facility] HospitalComment on above:Performed By: #### NICOLETTE #### [facility] [address] [place] [address] Dr. Ko TinocoV81.8 bKTsaxjt53.0-99.0The [facility] HospitalComment on above: Performed By: #### NICOLETTE #### [facility] [address] [place] [address] Dr. Ko OsborneOCYTE #NormalThe [facility] HospitalComment on above: Performed By: #### NICOLETTE #### [facility] [address] [place] [address] Dr. Ko OsborneOCYTE %NormalThe [facility] HospitalComment on above: Performed By: #### NICOLETTE #### [facility] [address] [place] [address] Dr. Ko Connolly#0.09 103/ulCritically low0.30-0.80[facility] Comment on above:Performed By: #### NICOLETTE #### [facility] [address] [address] [address] Ko Connolly%1.0 %Critically low1.7-12.0The [facility] HospitalComment on above:Performed By: #### NICOLETTE #### [facility] [address] [address] [address] Ko OsullivanV9.8 fLNormal9.5-13.5The [facility] HospitalComment on above: Performed By: #### NICOLETTE #### [facility] [address] [address] [address] Ko MijaresOCYTE #NormalHarrison Community HospitalComment on above:Performed By: #### NICOLETTE #### [facility] [address] [address] [address] Ko Meadows %NormalThe [facility]a HospitalComment on above:Performed By: #### NICOLETTE #### [facility] [address] [address] [address] Ko StephenNRBCNormalThMcCullough-Hyde Memorial HospitalComment on above:Performed By: #### NICOLETTE #### [facility] [address] [address] [address] Ko BoldenT375 103/etBkarsi385-650Zwt [facility] HospitalComment on above: Performed By: #### NICOLETTE #### [facility] [address] [place] [address] Dr. Ko StephenRBC4.01 106/ulCritically low4.20-5.40The [facility] HospitalComment on above:Performed By: #### NICOLETTE #### [facility] [address] [place] [address] Dr. Ko StephenRDW13.5 %Idssha01.0-15.0The [facility] HospitalComment on above: Performed By: #### NICOLETTE #### [facility] [address] [place] [address] Dr. Ko Sepulveda #8.55 103/ulCritically high1.40-6.50The [facility] on above:Performed By: #### NICOLETTE #### [facility] [address] [address] [address] Ko StephenSEG %95.0 %Critically high43.0-75.0The [facility] on above:Performed By: #### CBCMAN #### [facility] [address] [address] [address] Ko StephenWBC9.0 103/ulNormal4.0-11.0The [facility] Hospitalment on above: Performed By: #### CBCMAN #### [facility] [address] [place] [address] Dr. Ko StephenPOINT OF CARE GLUCOSEon 84-31-7946Kuigudq [Mass/Vol]98 mg/dL Yizufp85-320Ptx [facility] on above:Performed By: #### LACT #### [facility] [address] [place] [address] Dr. Ko StephenGlucose [Mass/Vol]158 mg/dLCritically vkrs92-439Llo [facility] on above:Performed By: #### POCGLUC #### [facility] [address] [place] [address] Dr. Ko StephenPROF 14(COMP METB)on 30-82-1014Omvighr [Mass/Vol]3.7 g/dLNormal 3.4-5.0The [facility] on above:Performed By: #### LACT #### [facility] [address] [place] [address] Dr. Ko StephenAlbumin/Globulin [Mass ratio]1.2 {ratio}NormalThe [facility] on above:Performed By: #### LACT #### [facility] [address] [place] [address] Dr. Ko GarcesP [Catalytic activity/Vol]42 U/LCritically iyf35-865Rdw [facility] on above:Performed By: #### LACT #### [facility] [address] [place] [address] Dr. Ko GarcesT [Catalytic activity/Vol]30 U/FRrqwzf50-58Ian Julio C HospitalComment on above:Performed By: #### LACT #### [facility] [address] [address] [address] Ko Gatica gap [Moles/Vol]17.1 mmol/LNormalThe [facility] Comment on above:Performed By: #### LACT #### [facility] [address] [address] [address] Ko StephenAST [Catalytic activity/Vol]15 U/RNbrnuk99-35Jiw [facility] HospitalComment on above:Performed By: #### LACT #### [facility] [address] [address] [address] Ko StephenBilirubin [Mass/Vol]0.2 mg/dLNormal0.2-1.0[facility] Comment on above:Performed By: #### LACT #### [facility] [address] [address] [address] Ko StephenCalcium [Mass/Vol]9.6 mg/dLNormal8.5-10.1[facility] Comment on above:Performed By: #### LACT #### [facility] [address] [address] [address] Ko StephenChloride [Moles/Vol]100 mmol/HTwirfk09-626AkoHarrison Community Hospital Comment on above:Performed By: #### LACT #### [facility] [address] [address] [address] Ko StephenCO2 [Moles/Vol]22.3 mmol/CVafufm08.0-32.0[facility] Comment on above:Performed By: #### LACT #### [facility] [address] [address] [address] Ko StephenCreatinine [Mass/Vol]1.10 mg/dLCritically high0.55-1.02The [facility] HospitalComment on above:Performed By: #### LACT #### [facility] [address] [address] [address] Connell ChangEGFR-AF JAMAICAN>60Normal>=60The [facility] HospitalComment on above:Performed By: #### LACT #### [facility] [address] [address] [address] Ko HopsonGFR-NON AF ZYKTVGOC57 mL/min/1.42u0Rurstancid low>=60The [facility] HospitalComment on above:Performed By: #### LACT #### [facility] [address] [address] [address] Ko StephenGlobulin (S) [Mass/Vol]3.1 g/dLNoMansfield HospitalComment on above:Performed By: #### LACT #### [facility] [address] [address] [address] Ko StephenGlucose [Mass/Vol]180 mg/dLCritically wlap68-024Rik [facility] HospitalComment on above:Performed By: #### LACT #### [facility] [address] [address] [address] Ko StephenPotassium [Moles/Vol]3.4 mmol/LCritically low3.5-5.1The [facility] HospitalComment on above:Performed By: #### LACT #### [facility] [address] [address] [address] Ko StephenProtein [Mass/Vol]6.8 g/dLNormal6.4-8.2The [facility] Comment on above:Performed By: #### LACT #### [facility] [address] [address] [address] Ko StephenSodium [Moles/Vol]136 mmol/NMqjctm488-064Pse [facility] Comment on above:Performed By: #### LACT #### [facility] [address] [address] [address] Ko StephenUrea nitrogen [Mass/Vol]19.0 mg/dLCritically high7.0-18.0The [facility] HospitalComment on above:Performed By: #### LACT #### [facility] [address] [address] [address] Ko StephenUrea nitrogen/Creatinine [Mass ratio]17.3 mg/mgNoMansfield HospitalComment on above:Performed By: #### LACT #### [facility] [address] [place] [address] Dr. Ko Jean 89-91-2271Qpkcdkpivke peptide B (Bld) [Mass/Vol]291.0 pg/mL Normal<=450.0The [facility] Hospitalment on above:Performed By: #### CMP, CMADM, BNP #### [facility] [address] [place] [address] Dr. Ko Vann PERRY ADMITon 52-49-9165QI [Catalytic activity/Vol]286 U/L Critically yjqe61-170Uhs [facility] Hospitalment on above:Performed By: #### CMP, CMADM, BNP #### [facility] [address] [place] [address] Dr. Ko Olivares.MB [Mass/Vol]4.51 ng/mLCritically high<=3.60The [facility] Hospitalment on above:Performed By: #### CMP, CMADM, BNP #### [facility] [address] [place] [address] Dr. Ko ValderramaTROP5.0 pg/mLNormal4.0-51.3The [facility] Hospitalment on above:Result Comment: CUT-OFF POINTS HAVE BEEN ESTABLISHED BASED ON THE FOURTH UNIVERSAL DEFINITIONS OF MYOCARDIAL INFARCTION. THE UPPER REFERENCE LIMIT (URL) OF TROPONIN, DEFINED THE 99TH PERCENTILE OF cTnI DISTRIBUTION IN A REFERENCE POPULATION, HAS BEEN CONFIRMED THE DECISION THRESHOLD FOR [place] DIAGNOSIS.Performed By: #### CMP, CMADM, BNP #### [facility] [address] [place] [address] Dr. Ko JohnsO184 ng/mLCritically high9-82The [facility] Hospitalment on above:Performed By: #### CMP, CMADM, BNP #### [facility] [address] [place] [address] Dr. Ko Blas AUTO DIFFon 06-92-9711HVXL #0.0 103/ulNormal0.0-0.1The [facility] Hospitalment on above:Performed By: #### CBC #### [facility] [address] [place] [address] Dr. Yilan ChangBasophils/100 WBC (Bld)0.2 %Normal0.2-2.0[facility] Comment on above:Performed By: #### CBC #### [facility] [address] [place] [address] Dr. Ko Noble #0.0 103/ulNormal0.0-0.7The [facility] HospitalComment on above: Performed By: #### CBC #### [facility] [address] [place] [address] Dr. Ko Hopsonosinophils/100 WBC (Bld)0.0 %Critically low0.9-7.0The [facility] HospitalComment on above:Performed By: #### CBC #### [facility] [address] [place] [address] Dr. Ko Hopsonrythrocyte distribution width (RBC) [Ratio]13.7 %Ksjcid24.0-15.0 The [facility] HospitalComment on above:Performed By: #### CBC #### [facility] [address] [place] [address] Dr. Ko StephenHematocrit (Bld) [Volume fraction]31.8 %Critically low36.0-48.0 The [facility] HospitalComment on above:Performed By: #### CBC #### [facility] [address] [place] [address] Dr. Ko StephenHemoglobin (Bld) [Mass/Vol]11.1 g/dLCritically low12.0-16.0The [facility] HospitalComment on above:Performed By: #### CBC #### [facility] [address] [place] [address] Dr. Ko Mendoza #0.11 10e3/ulCritically high0.00-0.03The [facility] Comment on above:Performed By: #### CBC #### [facility] [address] [place] [address] Dr. Ko Mendoza %1.0 %Critically high0.0-0.5The [facility] HospitalComment on above:Performed By: #### CBC #### [facility] [address] [address] [address] Ko Chavira #1.8 103/ulNormal1.2-3.8The [facility] HospitalComment on above:Performed By: #### CBC #### [facility] [address] [address] [address] Ko Daiglemphocytes/100 WBC (Bld)16.2 %Critically low20.5-60.0The [facility] HospitalComment on above:Performed By: #### CBC #### [facility] [address] [address] [address] Ko GilesUAL DIFF REQNONormalThe [facility] HospitalComment on above: Performed By: #### CBC #### [facility] [address] [place] [address] Dr. Ko Tinoco (RBC) [Entitic mass]28.2 qaOneanp39.7-34.0The [facility] HospitalComment on above:Performed By: #### CBC #### [facility] [address] [place] [address] Dr. Ko Tinoco (RBC) [Mass/Vol]34.9 g/qXKdtdlp17.9-35.2The [facility] Hospitalment on above:Performed By: #### CBC #### [facility] [address] [place] [address] Dr. Ko Tinoco (RBC) [Entitic vol]80.7 fLCritically low81.0-99.0The [facility] Hospitalment on above:Performed By: #### CBC #### [facility] [address] [place] [address] Dr. Ko Paredes #0.7 103/ulNormal0.3-0.8The [facility] HospitalComment on above:Performed By: #### CBC #### [facility] [address] [place] [address] Dr. Ko Rennerocytes/100 WBC (Bld)6.3 %Normal1.7-12.0[facility] Comment on above:Performed By: #### CBC #### [facility] [address] [address] [address] Ko Hwang #8.4 103/ulCritically high1.4-6.5The [facility] Comment on above:Performed By: #### CBC #### [facility] [address] [place] [address] Dr. Ko Hernandezutrophils/100 WBC (Bld)76.3 %Critically high43.0-75.0The [facility] HospitalComment on above:Performed By: #### CBC #### [facility] [address] [place] [address] Dr. Ko StephenPlatelet mean volume (Bld) [Entitic vol]9.5 fLNormal9.5-13.5The [facility] HospitalComment on above:Performed By: #### CBC #### [facility] [address] [place] [address] Dr. Ko StephenPLT384 103/guWmxanu528-534Ktq [facility] HospitalComment on above: Performed By: #### CBC #### [facility] [address] [place] [address] Dr. Ko StephenRBC3.94 106/ulCritically low4.20-5.40The [facility] HospitalComment on above:Performed By: #### CBC #### [facility] [address] [place] [address] Dr. Ko StephenWBC11.0 103/ulNormal4.0-11.0The [facility] HospitalComment on above:Performed By: #### CBC #### [facility] [address] [place] [address] Dr. Ko StephenCULTURE URINEon 58-13-4839PLCXJKF URINECulture Observations: NO GROWTH.NormalThe [facility] HospitalComment on above:Performed By: #### URCX #### [facility] [address] [place] [address] Dr. Ko StephenCovid-19 PCR (CVDTBH)on 93-36-0348CIAS-CoV-2 (COVID-19) RNA RADHA+probe Ql (Unsp spec)Not detectedNormalNOT DETECTEDThe [facility] Comment on above:Result Comment: When diagnostic testing [...] this test is supported by the Supervisor [employer] of Health and Human Service's declaration that [...] longer be used).Performed By: #### CVDTBH #### [facility] [address] [place] [address] Dr. Ko StephenLACTATE/LACTIC ACIDon 85-70-7621Zttjjfi [Moles/Vol]1.7 mmol/L Normal0.4-1.9The [facility] HospitalComment on above:Performed By: #### LACT #### [facility] [address] [place] [address] Dr. Ko StephenPOINT OF CARE GLUCOSEon 81-75-5000Whvolyi [Mass/Vol]139 mg/dL Critically cvpv10-611EnbHarrison Community HospitalComment on above:Performed By: #### POCGLUC #### [facility] [address] [place] [address] Dr. Ko StephenGlucose [Mass/Vol]99 mg/rZGmjbzl15-313PxiHarrison Community Hospital Comment on above:Performed By: #### LACT #### [facility] [address] [place] [address] Dr. Ko StephenPROF 14(COMP METB)on 21-97-5541Ixznrjo [Mass/Vol]3.9 g/dLNormal 3.4-5.0The Julio C HospitalComment on above:Performed By: #### CMP, CMADM, BNP #### [facility] [address] [address] [address] Ko StephenAlbumin/Globulin [Mass ratio]1.3 {ratio}NormalThe [facility]rington HospitalComment on above:Performed By: #### CMP, CMADM, BNP #### [facility] [address] [place] [address] Dr. Ko Aguilar [Catalytic activity/Vol]43 U/LCritically ave00-895Yja [facility] HospitalComment on above:Performed By: #### CMP, CMADM, BNP #### [facility] [address] [place] [address] Dr. Ko Diggs [Catalytic activity/Vol]34 U/UJrucfx84-19Esh [facility] HospitalComment on above:Performed By: #### CMP, CMADM, BNP #### [facility] [address] [place] [address] Dr. Ko Gatica gap [Moles/Vol]16.2 mmol/LNormalThe [facility] Comment on above:Performed By: #### CMP, CMADM, BNP #### [facility] [address] [place] [address] Dr. Ko Cortez [Catalytic activity/Vol]18 U/CFgwebw72-99Gjg [facility] on above:Performed By: #### CMP, CMADM, BNP #### [facility] [address] [place] [address] Dr. Ko StephenBilirubin [Mass/Vol]0.2 mg/dLNormal0.2-1.0[facility] Comment on above:Performed By: #### CMP, CMADM, BNP #### [facility] [address] [place] [address] Dr. Ko StephenCalcium [Mass/Vol]9.4 mg/dLNormal8.5-10.1[facility] Comment on above:Performed By: #### CMP, CMADM, BNP #### [facility] [address] [place] [address] Dr. Yilan ChangChloride [Moles/Vol]99 mmol/XNhcgky58-884IhsHarrison Community Hospital Comment on above:Performed By: #### CMP, CMADM, BNP #### [facility] [address] [address] [address] Ko StephenCO2 [Moles/Vol]25.7 mmol/REtxfsd62.0-32.0[facility] Comment on above:Performed By: #### CMP, CMADM, BNP #### [facility] [address] [address] [address] Ko StephenCreatinine [Mass/Vol]1.10 mg/dLCritically high0.55-1.02[facility] HospitalComment on above:Performed By: #### CMP, CMADM, BNP #### [facility] [address] [address] [address] Connell ChangEGFR-AF JAMAICAN>60Normal>=60The [facility] HospitalComment on above:Performed By: #### CMP, CMADM, BNP #### [facility] [address] [address] [address] Ko HopsonGFR-NON AF SPZWKPTX57 mL/min/1.66d9Nsawvvbiuq low>=60The [facility] HospitalComment on above:Performed By: #### CMP, CMADM, BNP #### [facility] [address] [address] [address] Ko StephenGlobulin (S) [Mass/Vol]2.9 g/dLNormalThe [facility] HospitalComment on above:Performed By: #### CMP, CMADM, BNP #### [facility] [address] [address] [address] Ko StephenGlucose [Mass/Vol]97 mg/aSHggrwx57-290ZlsHarrison Community Hospital Comment on above:Performed By: #### CMP, CMADM, BNP #### [facility] [address] [address] [address] Ko StephenPotassium [Moles/Vol]3.9 mmol/LNormal3.5-5.1[facility] Comment on above:Performed By: #### CMP, CMADM, BNP #### [facility] [address] [address] [address] Ko StephenProtein [Mass/Vol]6.8 g/dLNormal6.4-8.2[facility] Comment on above:Performed By: #### CMP, CMADM, BNP #### [facility] [address] [address] [address] Ko Mirandaum [Moles/Vol]137 mmol/HZgvvzx482-307Tce [facility] Comment on above:Performed By: #### CMP, CMADM, BNP #### [facility] [address] [address] [address] Ko Villalba nitrogen [Mass/Vol]16.0 mg/dLNormal7.0-18.0The [facility] HospitalComment on above:Performed By: #### CMP, CMADM, BNP #### [facility] [address] [place] [address] Dr. Ko Villalba nitrogen/Creatinine [Mass ratio]14.5 mg/mgNormalThe [facility] HospitalComment on above:Performed By: #### CMP, CMADM, BNP #### [facility] [address] [place] [address] Dr. Ko Meadows RANDOM W/MICROSCOPICon 45-18-2978PKRFIVICXBTA SEENNormalNONE SEENHarrison Community HospitalComment on above:Performed By: #### LACT #### [facility] [address] [place] [address] Dr. Ko Wayneirubin Ql (U)NegativeNormalNEGATIVEThe [facility] Comment on above:Performed By: #### LACT #### [facility] [address] [place] [address] Dr. Ko Carney SEENNormalNONE SEENHarrison Community HospitalComment on above:Performed By: #### LACT #### [facility] [address] [place] [address] Dr. Ko Raglandarity (U)CLEARNormalCLEARThe [facility] HospitalComment on above: Performed By: #### LACT #### [facility] [address] [address] [address] Ko Hernandezlor (U)LT. YELLOWNormalYELLOWHarrison Community HospitalComment on above:Performed By: #### LACT #### [facility] [address] [address] [address] oK StephenCrystals LM Nom (Urine sed)NONE SEENNormalNONE SEENHarrison Community HospitalComment on above:Performed By: #### LACT #### [facility] [address] [address] [address] Connell ChangEpithelial cells LM Ql (Urine sed)NONE SEENNormalNONE SEEN /RARE The [facility] HospitalCommymichigan medical center west branch on above:Performed By: #### LACT #### [facility] [address] [place] [address] Dr. Ko StephenGlucose Ql (U)500 mg/dlAbssm saint [facility] health centeralNEGDetwiler Memorial Hospital on above:Performed By: #### LACT #### [facility] [address] [address] [address] Ko StephenHemoglobin Ql (U)TRACE-INTACTAbnormalNEGSt. Charles HospitalCommymichigan medical center west branch on above:Performed By: #### LACT #### [facility] [address] [address] [address] Ko StephenKetones Ql (U)NegativeNormalNEGATIVEHarrison Community HospitalCommymichigan medical center west branch on above:Performed By: #### LACT #### [facility] [address] [address] [address] Ko StephenLEUKOCYTESNegativeNormalNEGATIVEHarrison Community HospitalCommymichigan medical center west branch on above:Performed By: #### LACT #### [facility] [address] [address] [address] Ko StephenMUCOUSNONE SEENNormalNONE SEENHarrison Community HospitalComment on above:Performed By: #### LACT #### [facility] [address] [address] [address] Ko StephenNitrite Ql (U)NegativeNormalNEGATIVEHarrison Community HospitalComment on above:Performed By: #### LACT #### [facility] [address] [place] [address] Dr. Ko StephenpH (U)5.5 [pH]Normal5-9The [facility] HospitalComment on above: Performed By: #### LACT #### [facility] [address] [place] [address] Dr. Ko StephenGmzbxXMS4-2Wmpnwi5-4Rcv [facility] HospitalComment on above:Performed By: #### LACT #### [facility] [address] [place] [address] Dr. Ko StephenSPEC GRAVITY<=1.488Krqwjdoj3.005-<=1.025[facility] Comment on above:Performed By: #### LACT #### [facility] [address] [place] [address] Dr. Ko StephenUA PROTEINNegativeNormalNEGATIVE/ TRACEThe [facility] Comment on above:Performed By: #### LACT #### [facility] [address] [place] [address] Dr. Ko Bensonbilinogen Qn (U)0.2 {Rich'U}/dLNormal0.2 - 1.0The [facility] on above:Performed By: #### LACT #### [facility] [address] [place] [address] Dr. Ko StephenWBCNONE SEENNormalNONE SEENThe [facility] HospitalComment on above: Performed By: #### LACT #### [facility] [address] [place] [address] Dr. Ko StephenXR CHEST 2 Von 53-38-2481KN CHEST 2 VEXAMINATION: XR CHEST 2 V [...] Electronically authenticated by: LIAT MARISCAL Date: 2022-10-10 17:23[facility] TownshipXR wrist RT min 3V*on 75-98-2180BQ wrist RT min 3V*[facility] Other XR wrist RT min 3V*[facility] Other XR wrist RT min 3V*April Lemons [facility] Other XR wrist RT min 3V*VIVIEN Giron [address]Hdhyj [employer] Other XR wrist RT min 3V*XRay ReportSan [place] [facility] Other XR wrist RT min 3V*SignedSan [place] [employer] Other XR wrist RT min 3V*Patient: Kourtney Novak MR#: [id number] [employer] Other XR wrist RT min 3V*[id number] [employer] Other XR wrist RT min 3V*: 1975 Acct:[id number] [place] [employer] Other XR wrist RT min 3V*Age/Sex: 46 / F ADM Date: 09/24/22 [place] [employer] Other XR wrist RT min 3V*[place] [facility] [place]: Type: [facility] [employer] Other XR wrist RT min 3V*Attending Dr: Elyssa Gomes MD [place] [employer] Other XR wrist RT min 3V*Copies to: Elyssa Gomes MD [employer] Other XR wrist RT min 3V*Ordering Provider: Elyssa Gomes MDSan Jose [employer] Other XR wrist RT min 3V*Date of Service: 09/24/22[place] [employer] Other XR wrist RT min 3V* XR/XR wrist RT min 3V*: Osteochondrosis of lunate of right wristSan [place] [employer] Other XR wrist RT min 3V*RIGHT WRIST - 4 viewsSan [place] [employer] Other XR wrist RT min 3V*CLINICAL HISTORY: Follow-up right wrist denervation and radial core decompressionSan Jose [employer] Other XR wrist RT min 3V*COMPARISON: None[employer] Other XR wrist RT min 3V*FINDINGS:[employer] Other XR wrist RT min 3V*No focal soft tissue abnormality. 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 Triquetral fracture is unchanged. Mild degenerative changes without bony erosion.[employer] Other XR wrist RT min 3V* XR/XR wrist RT min 3V*[employer] Other XR wrist RT min 3V*IMPRESSION:[employer] Other XR wrist RT min 3V*NO SIGNIFICANT CHANGE IN WRIST FINDINGS.[employer] Other XR wrist RT min 3V*Impression dictated by: Rainer Martinez Jr., D.OEstefany09/24/2022 4:36 [facility] Other XR wrist RT min 3V*Dictation Location: [place] [address] [employer] Other XR wrist RT min 3V*Transcribed By: PWS 09/24/22 [facility] [employer] Other XR wrist RT min 3V*Dictated By: Rainer Martinez Jr, DO 09/24/22 [facility] CenterGenSight [facility]olog[facility] Other XR wrist RT min 3V*Signed By:[employer] Other XR wrist RT min 3V*09/24/22 [facility] Other Urine culture routineOrdered By: Jesus Gonzalez on 84-96-1114Zwegmrrl identified Cx Nom (U)2 DaysCleveland Clinic [facility] Automated erythrocytes count in urine sediment (number/area)Ordered By: Jesus Gonzalez on 93-01-5656WTX Auto (Urine sed) [#/Area]3-4 [HPF]0-4FProMedica Defiance Regional HospitalAutomated leukocytes count in urine sediment (number/area)Ordered By: Jesus Gonzalez on 49-95-8163FMT Auto (Urine sed) [#/Area]None seen [HPF]0-4 [facility] For RehabilitationBilirubin Test strip Ql (U)Ordered By: Jesus Gonzalez on 25-88-3546Xlhndjvgv Ql (U)NegativeNegativeCleveland Clinic Children'S Hospital For RehabilitationColor Auto (U)Ordered By: Jesus Gonzalez on 68-18-1463Zcrdq (U)YellowYellow [facility] For RehabilitationKetones Auto test strip (U) [Mass/Vol]Ordered By: Jesus Gonzalez on 66-64-7743Oskcsyr (U) [Mass/Vol]NegativeNegativeCleveland Clinic Children'S Hospital For RehabilitationLaboratory - UrinalysisOrdered By: Jesus Gonzalez on 20-72-5993Rqrkhbq casts LM Ql (Urine sed)None seen [LPF]0-8[facility] For RehabilitationNitrite Test strip Ql (U)Ordered By: Jseus Gonzalez on 07-29-2022 Nitrite Ql (U)NegativeNegAshtabula County Medical CenterProtein Auto test strip (U) [Mass/Vol]Ordered By: Jesus Gonzalez on 09-58-4190Kejlcex (U) [Mass/Vol] NegativeNegativeWright-Patterson Medical Centerpecific gravity Auto test strip (U) [Rel density]Ordered By: Jesus Gonzalez on 12-48-5001Exgoleuq gravity (U) [Rel density]1.0131.001-1.030Wright-Patterson Medical Centerquamous epithelial cells detection in urine sediment by light microscopyOrdered By: Jesus Gonzalez on 62-84-7809Usdkxfcvmv cells.squamous LM Ql (Urine sed)None seen [HPF]0-2FProMedica Defiance Regional HospitalUrine bacteria detection by automated methodOrdered By: Jesus Gonzalez on 90-54-6333Ljcrrohg Auto Ql (U)None seenNone SeenCleveland Clinic Children'S Hospital For RehabilitationUrine clarity by refractometry automated Ordered By: Jesus Gonzalez on 27-02-4068Fiblhxv Refractometry automated (U)Clear ClearCleveland Clinic Children'S Hospital For RehabilitationUrine culture routineOrdered By: Jesus Gonzalez on 87-45-4474Kokbrfth identified Cx Nom (U)2 DaysCleveland Clinic Children'S Hospital For RehabilitationUrine glucose measurement by automated test strip (mass/volume)Ordered By: Jesus Gonzalez on 58-78-6816Nxcdejo Auto test strip (U) [Mass/Vol]>=1000 mg/dL NormalCleveland Clinic Children'S Hospital For RehabilitationUrine hemoglobin detection by automated test stripOrdered By: Jesus Gonzalez on 66-96-0758Knyyhnatrd Auto test strip Ql (U) TraceNegativeCleveland Clinic Children'S Hospital For RehabilitationUrine leukocyte esterase detection by automated test stripOrdered By: Jesus Gonzalez on 06-67-7990Vtqgtgaui esterase Auto test strip Ql (U)NegativeNegativeCleveland Clinic Children'S [facility] For Rehabilitation Urobilinogen Auto test strip (U) [Mass/Vol]Ordered By: Jesus Gonzalez on 07-29-2022 Urobilinogen (U) [Mass/Vol]Normal mg/dLNormalCleveland Clinic Children'S Hospital For RehabilitationpH Auto test strip (U)Ordered By: Jesus Gonzalez on 35-82-8633cP (U)6.0 [pH]5.0-9.0 [facility] For RehabilitationAlbumin [Mass/volume] in Serum or PlasmaOrdered By: Jesus Gonzalez on 03-51-5003Lbgncxz [Mass/Vol]4.0 g/dL3.2-5.5FProMedica Defiance Regional HospitalBasophils Auto (Bld) [#/Vol]Ordered By: Jesus Gonzalez on 56-84-8814Vnygyotcy (Bld) [#/Vol]0.0 10*3/uL0.0-0.2FProMedica Defiance Regional HospitalBasophils/100 WBC Auto (Bld)Ordered By: Jesus Gonzalez on 05-01-2022 Basophils/100 WBC (Bld)0.8 %.[facility] RehabilitationBlood hemoglobin measurement (mass/volume)Ordered By: Jesus Gonzalez on 79-22-1260Jafsnckwvu (Bld) [Mass/Vol]12.4 g/dL11.8-15.4FProMedica Defiance Regional HospitalBlood leukocytes automated count (number/volume)Ordered By: Jesus Gonzalez on 91-03-5934RYQ (Bld) [#/Vol]6.0 10*3/uL4.5-11.0[facility] For RehabilitationCholesterol [Mass/volume] in Serum or PlasmaOrdered By: Jesus Gonzalez on 31-16-2675Xckvrfiqjoa [Mass/Vol]189 mg/xH110-910KaqaqpbhcCleveland Clinic Children'S Hospital For RehabilitationComment on above: Chol less than 200 mg/dl low risk Chol 201-239 mg/dl borderline risk Chol 240 mg/dl and greater high riskChol less than 200 mg/dl low riskChol 201- 239 mg/dl borderline riskChol 240 mg/dl and greater high riskCholesterol in LDL Calc [Mass/Vol]Ordered By: Jesus Gonzalez on 53-72-9537Hvfcpehfnek in LDL [Mass/Vol]92 mg/dL0-100[facility] For RehabilitationComment on above:LDL ATP III CLASSIFICATION LDL less than 100 mg/dL Optimal LDL 100-129 mg/dL Near or above optimal LDL 130-159 mg/dL Borderline high LDL 160-189 mg/dL High LDL greater than 189 mg/dL Very highLDL ATP III CLASSIFICATIONLDL less than 100 mg/dL OptimalLDL 100-129 mg/dL Near or above fwekjedXRL511-443 mg/dL Borderline highLDL 160-189 mg/dL HighLDL greater than 189 mg/dL Very highCholesterol in VLDL Calc [Mass/Vol]Ordered By: Jesus Gonzalez on 24-32-6118Vfmynmcubun in VLDL [Mass/Vol]19 mg/dLCleveland Clinic Children'S Hospital For RehabilitationCreatinine and Glomerular filtration rate.predicted panel (S/P/Bld)Ordered By: Jesus Gonzalez on 05-01-2022 Creatinine [Mass/Vol]1.06 mg/dL0.44-1.03[facility] Eosinophils Auto (Bld) [#/Vol]Ordered By: Jesus Gonzalez on 86-51-4188Jbhrwsctgkd (Bld) [#/Vol]0.1 10*3/uL0.0-0.45[facility] For RehabilitationEosinophils/100 WBC Auto (Bld)Ordered By: Jesus Gonzalez on 19-87-3954Qejhddnsjxt/100 WBC (Bld)1.2 %.[facility] For RehabilitationErythrocyte distribution width Auto (RBC) [Ratio]Ordered By: Jesus Gonzalez on 35-90-2582Domreeswahw distribution width (RBC) [Ratio]13.7 %11.9-15.3FProMedica Defiance Regional HospitalEstimated glomerular filtration rate (GFR) non- AmericanOrdered By: Jesus Gonzalez on 05-01-2022 GFR/1.73 sq M.predicted among non-blacks MDRD (S/P/Bld) [Vol rate/Area]56 mL/Min [facility] For RehabilitationGlobulin Calc (S) [Mass/Vol]Ordered By: Jesus Gonzalez on 42-73-3616Jmqnayul (S) [Mass/Vol]2.3 g/dLCleveland Clinic Children'S Hospital For RehabilitationGlucose mean value [Mass/volume] in Blood Estimated from glycated hemoglobinOrdered By: Jesus Gonzalez on 02-40-8267Ucynwdg glucose Estimated from glycated hemoglobin (Bld) [Mass/Vol]117 mg/dLCleveland Clinic Children'S Hospital For Rehabilitation Hematocrit Auto (Bld) [Volume fraction]Ordered By: Jesus Gonzalez on 05-01-2022 Hematocrit (Bld) [Volume fraction]38.4 %34.0-46.4FProMedica Defiance Regional HospitalHemoglobin A1c percentageOrdered By: Jesus Gonzalez on 30-54-5777NhU4e (Bld) [Mass fraction]5.7 %4.3-5.6FProMedica Defiance Regional HospitalComment on above: Increased risk for diabetes: 5.7 - 6.4 diabetes: >6.4 glycemic control for adults with diabetes: <7.0Increased risk for diabetes: 5.7 - 6.4diabetes: >6.4glycemic control for adults with diabetes: <7.0Iron [Mass/volume] in Serum or PlasmaOrdered By: Jesus Gonzalez on 99-65-3790Efxb [Mass/Vol]48 ug/sD13-382GmogcfyabCleveland Clinic Children'S Hospital For RehabilitationLaboratory - Chemistry and Chemistry - challengeOrdered By: Jesus Gonzalez on 51-33-9656Cwfabgnlqox peptide B (Bld) [Mass/Vol]7.0 pg/mL5-100[facility] Laboratory - Hematology and Cell countsOrdered By: Jesus Gonzalez on 05-01-2022 Nucleated RBC/100 WBC (Bld) [Ratio]0.0 %0-0.5FProMedica Defiance Regional Hospital Lymphocytes Auto (Bld) [#/Vol]Ordered By: Jesus Gonzalez on 23-30-6516Qudjuvkcopr (Bld) [#/Vol]1.4 10*3/uL1.00-4.8[facility] For RehabilitationLymphocytes/100 WBC Auto (Bld)Ordered By: Jesus Gonzalez on 75-40-4572Zddxxhnraop/100 WBC (Bld) 23.0 %.[facility] HospitalH Auto (RBC) [Entitic mass]Ordered By: Jesus Gonzalez on 43-11-0754SJE (RBC) [Entitic mass]28.9 pg24.7-34.3FProMedica Defiance Regional HospitalMCHC Auto (RBC) [Mass/Vol]Ordered By: Jesus Gonzalez on 58-89-8251DRER (RBC) [Mass/Vol]32.4 g/dL32.0-35.0[facility] For RehabilitationMCV Auto (RBC) [Entitic vol]Ordered By: Jeuss Gonzalez on 33-43-1400BGA (RBC) [Entitic vol]89.1 zU04-205ZmaqsxvtuCleveland Clinic Children'S Hospital For RehabilitationMonocytes Auto (Bld) [#/Vol]Ordered By: Jesus Gonzalez on 15-04-8281Btqpzyqie (Bld) [#/Vol]0.6 10*3/uL 0.0-0.8[facility] For RehabilitationMonocytes/100 WBC Auto (Bld)Ordered By: Jesus Gonzalez on 54-10-0762Uzonsnkdo/100 WBC (Bld)9.1 %.[facility] For RehabilitationNeutrophils Auto (Bld) [#/Vol]Ordered By: Jesus Gonzalez on 05-01-2022 Neutrophils (Bld) [#/Vol]4.0 10*3/uL1.8-7.7FProMedica Defiance Regional Hospital Neutrophils/100 WBC Auto (Bld)Ordered By: Jesus Gonzalez on 05-01-2022 Neutrophils/100 WBC (Bld)65.9 %.[facility] For RehabilitationNo Panel InformationOrdered By: Jesus Gonzalez on 15-94-5437Mobqgdoiq GFR () > 60 mL/MinCleveland Clinic Children'S Hospital For RehabilitationComment on above:GFR estimated reference range: According to KDOQI guidelines, <60 ml/min/1.73m2 is sufficient todiagnose a patient with chronic kidney disease.Pharmacy Creatinine Clearance (ChemN/[facility] HospitalPlatelet mean volume Auto (Bld) [Entitic vol]Ordered By: Jesus Gonzalez on 55-26-1834Ctrclito mean volume (Bld) [Entitic vol]8.5 fL6.3-10.7FProMedica Defiance Regional HospitalPlatelets Auto (Bld) [#/Vol]Ordered By: Jesus Gonzalez on 93-35-9506Zqlgsvdmg (Bld) [#/Vol]385 10*3/uL 150-450[facility] RehabilitationProtein [Mass/volume] in Serum or Plasma Ordered By: Jesus Gonzalez on 56-93-6560Fctkqrg [Mass/Vol]6.3 g/dL6.1-7.9[facility] For RehabilitationRBC Auto (Bld) [#/Vol]Ordered By: Jesus Gonzalez on 63-84-3617MML (Bld) [#/Vol]4.31 10*6/uL3.60-5.00W[facility]-Patterson Medical Centererum or plasma alanine aminotransferase measurement without P-5'-P (enzymatic activiOrdered By: Jesus Gonzalez on 10-47-1007FGU No additional P-5'-P [Catalytic activity/Vol]22 U/Y41-16McffaxtpmWright-Patterson Medical Centererum or plasma albumin/globulin mass ratioOrdered By: Jesus Gonzalez on 05-01-2022 Albumin/Globulin [Mass ratio]1.7 {ratio}[facility]-Patterson Medical Centererum or plasma alkaline phosphatase measurement (enzymatic activity/volume)Ordered By: Jesus Gonzalez on 88-54-6423CTP [Catalytic activity/Vol]52 U/G67-88JgogabfrdWright-Patterson Medical Centererum or plasma aspartate aminotransferase measurement (enzymatic activity/volume)Ordered By: Jesus Gonzalez on 54-27-9361EEW [Catalytic activity/Vol]17 U/N15-01HztbxzcouWright-Patterson Medical Centererum or plasma calcium measurement (mass/volume)Ordered By: Jesus Gonzalez on 23-61-1309Rydtxmh [Mass/Vol] 9.5 mg/dL8.2-10.2FBerger Hospitalerum or plasma chloride measurement (moles/volume)Ordered By: Jesus Gonzalez on 96-85-2565Vkcxtsqr [Moles/Vol]100 mmol/O76-885CfoqmqmljWright-Patterson Medical Centererum or plasma glucose measurement (mass/volume)Ordered By: Jesus Gonzalez on 54-39-4569Ddbhvwr [Mass/Vol]96 mg/pF18-278NmholwswqCleveland Clinic Children'S Hospital For RehabilitationComment on above:ADA recommended reference range Random Glucose [...] (HDL) cholesterol measurementOrdered By: Jesus Gonzalez on 79-32-4623Lqrjoephtzq in HDL [Mass/Vol]78 mg/iH83-24BotlkyaqcCleveland Clinic Children'S Hospital For RehabilitationComment on above:HDL CHOL ATP-III CLASSIFICATION Cardiovascular Risk HDL > or equal to 60 mg/dL LOW HDL < 40 mg/dL HIGHHDL CHOL ATP-III CLASSIFICATION Cardiovascular RiskHDL > or equal to 60 mg/dL LOWHDL < 40 mg/dL HIGHSerum or plasma potassium measurement (moles/volume)Ordered By: Jseus Gonzalez on 76-06-2743Irtpynunh [Moles/Vol]4.2 mmol/L3.5-5.1FBerger Hospitalerum or plasma sodium measurement (moles/volume)Ordered By: Jesus Gonzalez on 15-30-4023Pxtisp [Moles/Vol]134 mmol/L 136-146W[facility]-Patterson Medical Centererum or plasma thyroxine (T4) measurement (mass/volume)Ordered By: Jesus Gonzalez on 19-10-4482B9 [Mass/Vol]9.20 ug/dL5.39-11.82W[facility]-Patterson Medical Centererum or plasma total bilirubin measurement (mass/volume)Ordered By: Jesus Gonzalez on 98-34-3019Uyehoefmg [Mass/Vol]0.4 mg/dL0.3-1.2FBerger Hospitalerum or plasma total carbon dioxide measurement (moles/volume)Ordered By: Jesus Gonzalez on 05-01-2022 CO2 [Moles/Vol]24.2 mmol/L22.0-30.0W[facility]-Patterson Medical Centererum or plasma total cholesterol/high density lipoprotein (HDL) cholesterol mass rat Ordered By: Jesus Gonzalez on 48-33-0980Fjdxbpdaumd.total/Cholesterol in HDL [Mass ratio]2.4 {ratio}<5.0W[facility]-Patterson Medical Centererum or plasma urea nitrogen measurement (mass/volume)Ordered By: Jesus Gonzalez on 11-62-8786Ivnn nitrogen [Mass/Vol]14 mg/dL9-23[facility] For RehabilitationTSH DL <= 0.005 mIU/L QnOrdered By: Jesus Gonzalez on 61-97-6294GBS Qn3.07 m[IU]/L0.45-5.33 [facility] For RehabilitationTriglyceride [Mass/volume] in Serum or Plasma Ordered By: Jesus Gonzalez on 50-37-1334Xhdabzumrjpl [Mass/Vol]97 mg/eI74-806 [facility] For RehabilitationComment on above:TRIG ATP III CLASSIFICATION TRIG less [...] resin uptake testOrdered By: Jesus Gonzalez on 68-15-4761O0FH41 %24-39[facility] For RehabilitationComment on above: Performed at: - [facility] [address] [place], [place] [id number] Boat Tender: Maxim Daniel PhD, Phone: [phone] at: [facility] LabcoTheresa [place] [id number] [place], [place] [id number] Director: Maxim Daniel PhD, Phone: [phone] wrist RT 2Von [id number] wrist RT 2VC[facility] Other XR wrist RT 2VFRDesert [facility] Hospital [facility]a Other XR wrist RT [id number] [place] [address] Chrom[employer] Other XR wrist RT 2VSWill[place], [place] [address]Uktug [employer] Other XR wrist RT 2VXRHCA [facility] Other XR wrist RT 2VSCrittenton Behavioral Health Chroma Other XR wrist RT 2VPatient: Kourtney Novak MR#: [id number] [facility] [employer] Other XR wrist RT [id number] [employer] Other XR wrist RT 2VDOB: 1975 Acct:[id number] [employer] Other XR wrist RT 2VAge/Sex: 46 / F ADM Date: 01/24/22[place] [facility] Other XR wrist RT 2VLoc: SOXD Room: Type: [facility] [employer] Other XR wrist RT 2VAttending Dr: Elyssa Gomes MDSan Jose [employer] Other XR wrist RT 2VOrdering Provider: Elyssa Gomes MD [place] [employer] Other XR wrist RT 2VDate of Service: 01/24/22[place] [employer] Other XR wrist RT 2VAccession #: ([id number] XR/XR wrist RT 2V: Osteochondrosis of lunate of right wristSan Jose [facility] Other XR wrist RT 2VCopies to: Elyssa Gomes MDSan [place] [employer] Other XR wrist RT 2VRight wrist 01/24/2022.[employer] Other xr wrist RT 2VCLINICAL DATA: Osteochondrosis of lunate of right wrist.[employer] Other xr wrist RT 2VFINDINGS: 2 views of the right wrist were obtained and are compared with a prior study 12/24/2021.[employer] Other xr wrist RT 2VNo acute fracture or dislocation is identified. The lunate again appears sclerotic. This findingSan [place] [employer] Other xr wrist RT 2Vhas not significantly changed. No collapse is seen. No soft tissue swelling is visualized.[employer] Other xr wrist RT 2VORDER #: [id number] XR/XR wrist RT 2V [employer] Other xr wrist RT 2VIMPRESSION: Sclerotic lunate, not significantly changed.[employer] Other xr wrist RT 2VImpression dictated by: Brody Marks Jr., M.D.01/24/2022 3:00 [facility] Other xr wrist RT 2VDictation Location: ZCHEN-BK-40Auyou [employer] Other xr wrist RT 2VTranscribed By: GRACIE 01/24/22 1500[place] [facility] Other xr wrist RT 2VDictated By: Brody Marks Jr, MD 01/24/22 1454[place] [employer] Other xr wrist RT 2VSigned By:[employer] Other XR wrist RT 2V01/24/[address] [place] [address] [employer] Other XR wrist RT min 3V*on 16-75-3929HQ wrist RT min 3V* [facility] Other XR wrist RT min 3V*[facility] Chrom[employer] Other XR wrist RT min 3V*April Lemons [facility] [employer] Other XR wrist RT min 3V*[place] [address]Qicrn Chroma Other XR wrist RT min 3V*[facility] [employer] Other XR wrist RT min 3V*[facility] Other XR wrist RT min 3V*Patient: Kourtney Novak MR#: [id number] [employer] Other XR wrist RT min 3V*[id number] [employer] Other XR wrist RT min 3V*: 1975 Acct:[id number] [place] [employer] Other XR wrist RT min 3V*Age/Sex: 46 / F ADM Date: 11/20/21 [employer] Other XR wrist RT min 3V*Loc: SOXD Room: Type: [facility] [employer] Other XR wrist RT min 3V*Attending Dr: Elyssa Gomes MD [employer] Other XR wrist RT min 3V*Ordering Provider: Elyssa Gomes MDSan Jose [employer] Other XR wrist RT min 3V*Date of Service: 11/20/21[employer] Other XR wrist RT min 3V* XR/XR wrist RT min 3V*: Other specified postproceduralSan Jose Chroma Other XR wrist RT min 3V*states;Osteochondrosis of lunSan [place] [employer] Other XR wrist RT min 3V*Copies to: Elyssa Gomes MD [employer] Other XR wrist RT min 3V*4 viewsRIGHT wrist plain filmSan Jose Chroma Other XR wrist RT min 3V*COMPARISON:NoneSan [place] [facility] Other XR wrist RT min 3V*HISTORY:Status post RIGHT wrist degeneration with previous core decompressionSan Jose [employer]a Other XR wrist RT min 3V*Sclerotic changes of the lunate present. No collapse identified. Calculi metacarpal bonesSan Jose [employer] Other XR wrist RT min 3V*identified. No soft tissue abnormality seen.[employer] Other XR wrist RT min 3V* XR/XR wrist RT min 3V*[employer] Other XR wrist RT min 3V*IMPRESSION:Sclerotic changes of the lunate. Adequate bony alignment. No collapse.[employer] Other XR wrist RT min 3V*Impression dictated by: George Gray M.D.11/20/2021 3:59 [facility] Other XR wrist RT min 3V*Dictation Location: [facility]--11 [employer] Other XR wrist RT min 3V*Transcribed By: GRACIE 11/20/21 [facility] [employer] Other XR wrist RT min 3V*Dictated By: George Gray DO 11/20/[address] [place] [address] [employer] Other XR wrist RT min 3V*Signed By:[employer] Other XR wrist RT min 3V*11/20/21 [facility] Other XR wrist RT min 3V*on 60-65-4114OA wrist RT min 3V* [facility] Other XR wrist RT min 3V*[facility] Other XR wrist RT min 3V*[facility] Chroma Other XR wrist RT min 3V*[place] [address]Toeff Chrom[employer] Other XR wrist RT min 3V*XRay [facility] [employer] Other XR wrist RT min 3V*[facility] Other XR wrist RT min 3V*Patient: Kourtney Novak MR#: [id number] [employer] Other XR wrist RT min 3V*[id number] [employer] Other XR wrist RT min 3V*: 1975 Acct:[id number] [place] [employer] Other XR wrist RT min 3V*Age/Sex: 45 / F ADM Date: 08/28/21 [place] [employer] Other XR wrist RT min 3V*[place] [facility] [place]: Type: [facility] [employer] Other XR wrist RT min 3V*Attending Dr: Elyssa Gomes MD [place] [employer] Other XR wrist RT min 3V*Ordering Provider: Elyssa Gomes MDSan [place] [employer] Other XR wrist RT min 3V*Date of Service: 08/28/21[place] [employer] Other XR wrist RT min 3V* XR/XR wrist RT min 3V*: M92.211[place] [employer] Other XR wrist RT min 3V*Copies to: Elyssa Gomes MD [employer] Other XR wrist RT min 3V*RIGHT WRIST - 4 viewsNomineral area regional [facility] Other XR wrist RT min 3V*CLINICAL DATA: Right wrist pain and decreased range of motion. No injury.[employer] Other XR wrist RT min 3V*COMPARISON: 11/15/2020 and MRI 11/15/2020[facility] [employer] Other XR wrist RT min 3V*AP, lateral, oblique and ulnar deviation views were obtained. There is no acute fracture [facility] CenterBilibot Other XR wrist RT min 3V*dislocation. Minor sclerosis is again seen at the lunate where there is also subchondral cysticNomineral area regional medical center [employer] Other XR wrist RT min 3V*change medially. This is similar to the prior. There is no developing joint space narrowing [facility] CenterBilibot Other XR wrist RT min 3V*hypertrophy. No prominent soft tissue swelling is noted.[employer] Other XR wrist RT min 3V* XR/XR wrist RT min 3V*[employer] Other XR wrist RT min 3V*IMPRESSION:[employer] Other XR wrist RT min 3V*BONY CHANGES AT THE LUNATE, SIMILAR TO THE COMPARISON.[employer] Other XR wrist RT min 3V*NO ACUTE FINDINGS.[employer] Other XR wrist RT min 3V*Impression dictated by: Trixie Irizarry M.D.08/28/2021 4:42 [facility] CAMDENBilibot Other XR wrist RT min 3V*Dictation Location: [place] [address] [employer] Other XR wrist RT min 3V*Transcribed By: GRACIE 08/28/21 1642 [employer] Other XR wrist RT min 3V*Dictated By: Trixie Irizarry MD 08/28/21 1639[employer] Other XR wrist RT min 3V*Signed By:[employer] Other xr wrist RT min 3V*08/28/21 1644[employer] Other XR FOOT 3V AP/LAT/OBL BILon 07-26-4397XH FOOT 3V AP/LAT/OBL TODD* * *Final Report* [...] tissues. No other significant abnormality. IMPRESSION: NORMAL Company Doctor: GUANACO Transcribe Date/Time: Mar 04 2021 2:52P Dictated by : TOBI HERRMANN MD This examination was interpreted and the report reviewed and electronically signed by: TOBI HERRMANN MD on Mar 04 2021 2:57PM EST [id number] of [place] HealthXR HAND 3V PA/LAT/OBL BILon 03-04-2021 XR HAND [...] REMOTE FRACTURES OF THE LEFT WRIST DESCRIBED Company Doctor: GUANACO Transcribe Date/Time: Mar 04 2021 2:57P Dictated by : TOBI HERRMANN MD This examination was interpreted and the report reviewed and electronically signed by: TOBI HERRMANN MD on Mar 04 2021 2:59PM EST [id number]_[facility] Vital Signs Date TimeVital SignValuePerforming HhpgbcnnaEwbvvqyq17-47-7087 14:11-0400Body mass index (BMI) [Ratio]40.77 kg/m2Sean Greene MD Work Phone: [facility] CenterAeovoowdew63-55-5429 14:11-0400Body iywyds698.13 kgSean Greene MD Work Phone: [facility] CenterOnvbhvnblj71-47-9443 13:49-0400Body tetcry968.1 cmKgirish Mayberry DMD Work Phone: [facility]10-14-2025 13:49-0400Body mass index (BMI) [Ratio]40.77 kg/t0DhgvwJonathan Mayberry DMD Work Phone: [facility]10-14-2025 13:49-0400Body surface area Derived from formula2.26 u9Bqiasgirish Mayberry DMD Work Phone: 1(419)[address]10-14-2025 13:49-0400Body yusbdwlmvka58.2 [degF]Jonathan Mayberry DMD Work Phone: 1(967)[address] [place], [place] 0105710-14-2025 13:49-0400Body aybgei787.13 kgJonathan Mayberry DMD Work Phone: 1(885)[address] [place], [place] 0105710-14-2025 13:49-0400Diastolic blood oqjetnjf26 mm[Hg]Jonathan Mayberry DMD Work Phone: 1(157)[address] [place], [place] 0105710-14-2025 13:49-0400Heart rate88 /Heather Mayberry DMD Work Phone: 1(481)[address] [place], [place] 0105710-14-2025 13:49-0400Systolic blood geegcgee805 mm[Hg]Jonathan Mayberry DMD Work Phone: 1(817)[address] [place], [place] 0105709-22-2025 22:31-0400Diastolic blood bvwqkkef09 mm[Hg]Jesus Gonzalez MD Work Phone: 1(499)098-[address] [place], [place] 1666609-22-2025 22:31-0400 Heart rate74 /Beverly Gonzalez MD Work Phone: 1(813)[address]09-22-2025 22:31-0400 Respiratory rate16 /Beverly Gonzalez MD Work Phone: 1(855)168-[address] [place], [place] 1666609-22-2025 22:31-0400 SaO2% (BldA) [Mass fraction]99 %Jesus Gonzalez MD Work Phone: 1(085)168-[address] [place], [place] 1666609-22-2025 22:31-0400 Systolic blood wajtiicb963 mm[Hg]Jesus Gonzalez MD Work Phone: 1(459)316-[address] [place], [place] 1666609-22-2025 20:19-0400 Body gnadgi564.56 cmDoerik Gonzalez MD Work Phone: 1(586)[address]09-22-2025 20:19-0400 Body jppcoxectzh45.3 [degF]Jesus Gonzalez MD Work Phone: [facility]09-22-2025 20:19-0400 Body qlgwyb501.39 kgJesus Gonzalez MD Work Phone: [facility]09-22-2025 17:46-0400 Body mass index (BMI) [Ratio]42.27 kg/z7RyucvjrLamar Dorsey REGULATOR OPERATOR Work Phone: [phone] CenterCmtcybykaq55-98-9388 17:46-0400Body temperature 98.71 [degF]Lamar Dorsey REGULATOR OPERATOR Work Phone: [phone])[address] [place], [place] [address]Kszvdrmmmh19-87-2287 17:46-0400Body .21 kgLamar Dorsey REGULATOR OPERATOR Work Phone: 1(231)[address] [place], [place] [address]Ehpbyhlgyk72-90-2727 17:46-0400Diastolic blood lbpykclt27 mm[Hg]Lamar Dorsey REGULATOR OPERATOR Work Phone: 1(002)[address] [place], [place] [address]Zkqdaesuji47-53-0111 17:46-0400Heart rate88 /min Lamar Dorsey REGULATOR OPERATOR Work Phone: 1(218)[address] [place] [address]-22-2025 17:46-0400Respiratory rate20 /minLamar Dorsey REGULATOR OPERATOR Work Phone: 1(355)878-[address] [place], [place] [address]Zxmikttwof08-31-2484 17:46-1269QcB5% (BldA) [Mass fraction]99 %Lamar Dorsey REGULATOR OPERATOR Work Phone: [facility] CenterCvrgrigjil68-24-2564 17:46-0400Systolic blood fcpiohzw575 mm[Hg]Lamar Dorsey REGULATOR OPERATOR Work Phone: 1(463)003-[address] [place] [address]-10-2025 14:51-0400Body ylnlgo898.1 cmSusan Rice WHCNP Work Phone: [facility]09-10-2025 14:51-0400Body mass index (BMI) [Ratio]40.77 kg/z3Fzshf Rice WHCNP Work Phone: [facility]09-10-2025 14:51-0400Body klnhin289.13 kgSusan Rice WHCNP Work Phone: 1(698)263-[address] [place], [place] 9512509-10-2025 14:51-0400Diastolic blood mm[Hg]Zulema MATSONCNP Work Phone: 1(138)[address]09-10-2025 14:51-0400Heart rate88 /Edgar MATSONCNP Work Phone: 1(654)[address] [place], [place] 0105709-10-2025 14:51-0400Respiratory rate18 /Edgar MATSONCNP Work Phone: 1(083)[address] [place], [place] 0105709-10-2025 14:51-5811KcQ1% (BldA) [Mass fraction]98 %Zulema MATSONCNP Work Phone: 1(389)[address] [place], [place] 0105709-10-2025 14:51-0400Systolic blood ttrbours129 mm[Hg]Zulema EDWARDSP Work Phone: 1(318)[address] [place], [place] 0105709-09-2025 13:21-0400Body mass index (BMI) [Ratio]41.27 kg/j9Lowihmg Cosmo REGULATOR OPERATOR Work Phone: [facility] CenterEchboogkhs67-98-1366 13:21-0400Body temperature 98.29 [degF]Yola Wilburn REGULATOR OPERATOR Work Phone: [facility] CenterRxyyhradix72-00-3968 13:21-0400Body pucmcz147.49 kgLinsherrymary Cosmo REGULATOR OPERATOR Work Phone: [phone] CenterMidzsupksj10-82-5879 13:21-0400Diastolic blood mm[Hg]Yola Wilburn REGULATOR OPERATOR Work Phone: [facility] CenterUnbhcnoqoq38-26-3240 13:21-0400Heart rate74 /min Yola Wilburn REGULATOR OPERATOR Work Phone: [facility] CenterYqdxlgizmf18-83-3307 13:21-7228GdU9% (BldA) [Mass fraction]98 %Yola Wilburn REGULATOR OPERATOR Work Phone: [facility] CenterZkwjemfqyy87-20-1381 13:21-0400Systolic blood huvevyts703 mm[Hg]Yola Wilburn REGULATOR OPERATOR Work Phone: [facility] CenterZhcqjovgzu62-26-1109 12:03-0400Body mass index (BMI) [Ratio]40.83 kg/h6Hvslvt Appointments Work Phone: [facility]07-02-2025 12:03-0400Body aoknjq856.3 kgFellow Appointments Work Phone: [facility] HospitalComment on above:with clrym64-97-5246 12:03-0400Diastolic blood sggoszvj55 mm[Hg]Fellow Appointments Work Phone: [facility] HospitalComment on above: daqgeinm31-91-1335 12:03-0400Heart rate82 /minFellow Appointments Work Phone: [facility]07-02-2025 12:03-0400Respiratory rate 18 /minFellow Appointments Work Phone: [facility]07-02-2025 12:03-5067KlC2% (BldA) [Mass fraction]99 %Fellow Appointments Work Phone: [facility]07-02-2025 12:03-0400Systolic blood ckuwyhgr349 mm[Hg]Fellow Appointments Work Phone: [facility] HospitalComment on above: ifuvtlhm19-28-4188 13:17-0400Body uojnyv017.1 cmSusan Rice CNP Work Phone: [facility]06-30-2025 13:17-0400Body mass index (BMI) [Ratio]40.77 kg/y1Puaov Rice WHCNP Work Phone: [phone])[address]06-30-2025 13:17-0400Body tdgnar731.13 kgSusan Rice WHCNP Work Phone: [phone]06-30-2025 13:17-0400Diastolic blood mm[Hg]Zulema EDWARDSP Work Phone: [facility]06-30-2025 13:17-0400Heart rate76 /Edgar EDWARDSP Work Phone: 1(474)[address]06-30-2025 13:17-0400Respiratory rate16 /Edgar EDWARDSP Work Phone: 1(373)[address]06-30-2025 13:17-7000QlF5% (BldA) [Mass fraction]97 %Zulema EDWARDSP Work Phone: 1(600)[address] [place], [place] 0105706-30-2025 13:17-0400Systolic blood ujkvkgkg330 mm[Hg]Zulema EDWARDSP Work Phone: 1(893)[address] [place], [place] 0105706-23-2025 10:11-0400Body mass index (BMI) [Ratio]39.95 kg/m2[facility]06-23-2025 10:11-0400Body qorzqxcdvzp47.19 [degF][facility]06-23-2025 10:11-0400Body evogee491.9 kgGreen [facility] 03-06-2025 10:11-0400Diastolic blood gsmixjon66 mm[Hg][facility]06-23-2025 10:11-0400Heart rate93 /[facility] Hospitalmarilyn [facility] 03-06-2025 10:11-0400Respiratory rate18 /Rachanamarilyn [facility]inaThe [facility] 03-06-2025 10:11-3040OxB3% (BldA) [Mass fraction]100 %[facility] HospitalComment on above:yh67-65-3988 10:11-0400Systolic blood gkfyemfm691 mm[Hg] [facility]06-09-2025 15:51-1755KmW3% (BldA) [Mass fraction] 98 %ERIK [facility] HospitalComment on above:Order Comment: Specimen Type: ARTERIAL BLOOD SPECIMENOrdering Facility: [facility]Address: [address] [place] [id number] By: #### ALLMG ####[facility] LABIA [id number] [facility] [address] [place], [place] [address]6-09-2025 13:28-5080XqS7% (BldA) [Mass fraction]99 %ERIK RECINOSCleveland Clinic FoundationComment on above:Order Comment: Specimen Type: ARTERIAL BLOOD SPECIMENOrdering Facility: [facility]ITALAddress: [address] [place], [place] [address]Performed By: #### ALLMG ####[facility] [id number] [facility] [id number] [place], [place] 1945306-03-2025 07:42-0400Body height 163.8 cmPacc 2 Work Phone: [facility]06-03-2025 07:42-0400Body mass index (BMI) [Ratio]40.98 kg/m2Pacc 2 Work Phone: [facility]06-03-2025 07:42-0400Body temperature 98.71 [degF]Pacc 2 Work Phone: [facility]06-03-2025 07:42-0400Body gfghdo308 kg Pacc 2 Work Phone: [facility]06-03-2025 07:42-0400Diastolic blood mm[Hg]Pacc 2 Work Phone: [facility]06-03-2025 07:42-0400Heart rate80 /min Pacc 2 Work Phone: [facility]06-03-2025 07:42-0400Respiratory rate 16 /minPacc 2 Work Phone: [facility]06-03-2025 07:42-0659MiJ9% (BldA) [Mass fraction]96 %Pacc 2 Work Phone: [facility]06-03-2025 07:42-0400Systolic blood tmzwblka991 mm[Hg]Pacc 2 Work Phone: [facility]04-16-2025 09:34-0400Body mass index (BMI) [Ratio]41.06 kg/t5WheguZulema Wood MD Work Phone: [facility]04-16-2025 09:34-0400Body igqsow506.2 kgZulema Wood MD Work Phone: [facility]04-16-2025 09:34-0400Diastolic blood aqrtxzlm59 mm[Hg]Zulema Wood MD Work Phone: [facility]04-16-2025 09:34-0400Heart aprk247 /minSandrew Wood MD Work Phone: [facility]04-16-2025 09:34-0400Systolic blood bhkpreds863 mm[Hg]Zulema Wood MD Work Phone: [facility]10-30-2024 17:34-0400Body mass index (BMI) [Ratio]40.77 kg/m2Estevan Polanco REGULATOR OPERATOR Work Phone: [facility] DivisionTtbjyygwcm71-78-4573 17:34-0400Body temperature 98.71 [degF]Estevan Polanco REGULATOR OPERATOR Work Phone: [facility] DivisionLilfdywjdj39-44-3581 17:34-0400Body .13 kgEstevan Polanco REGULATOR OPERATOR Work Phone: [facility] DivisionYjwhohbhtc23-11-3104 17:34-0400Diastolic blood cqaqvrne07 mm[Hg]Estevan Polanco REGULATOR OPERATOR Work Phone: [facility] DivisionToedtijdih96-26-8035 17:34-0400Heart rate87 /min Estevan Polanco REGULATOR OPERATOR Work Phone: [facility] DivisionQthzpgwmpu23-29-1226 17:34-9055DkL9% (BldA) [Mass fraction]99 %Estevan Polanco REGULATOR OPERATOR Work Phone: [facility] DivisionGlnmvmwhpm13-38-8953 17:34-0400Systolic blood fbsxpdnu373 mm[Hg]Estevan Polanco REGULATOR OPERATOR Work Phone: [facility] CenterHognrwrkux18-69-5503 09:38-0400Body mass index (BMI) [Ratio]40.61 kg/z9DzaobZulema Wood MD Work Phone: [facility]09-16-2024 09:38-0400Body wjique410 kg Zulema Wood MD Work Phone: [facility]09-16-2024 09:38-0400Diastolic blood mm[Hg]Zulema Wood MD Work Phone: [facility]09-16-2024 09:38-0400Heart rate87 /min Zulema Wood MD Work Phone: [facility]09-16-2024 09:38-0400Respiratory rate 18 /minSandrew Wood MD Work Phone: [facility]09-16-2024 09:38-0400Systolic blood stykeekg205 mm[Hg]Zulema Wood MD Work Phone: [facility]10-17-2023 10:52-0400Body hzeewj198 cm Erik Pineda MD Work Phone: LMer[facility] CenterWfmyez83-13-7972 10:52-0400Body temperature 98.71 [degF]Erik Pineda MD Work Phone: QMer[facility] Medical CenterVspszb17-09-8044 10:52-0400Body ppxudp001.88 kgErik Pineda MD Work Phone: 1([phone] Health [facility] Regional Medical CenterZhglxq86-19-9342 10:52-0400Diastolic blood eaeimoky74 mm[Hg]Erik Pineda MD Work Phone: 1(216)4452901ClevelOhioHealth Doctors HospitalQvhxuo41-87-5155 10:52-0400Heart rqce623 /minErik Pineda MD Work Phone: [place] Aaarwe80-69-6851 10:52-0400Respiratory rate 18 /minErik Pineda MD Work Phone: [place] Btcrbc04-80-8211 10:52-9675FdQ0% (BldA) [Mass fraction]97 %Erik Pineda MD Work Phone: cMer[facility] Medical CenterAgoriz48-46-7477 10:52-0400Systolic blood enqhhpfg417 mm[Hg]Erik Pineda MD Work Phone: cMer[facility] Medical CenterYbwzrp38-12-6476 07:10-0400Body noeeoy491.1 cmMD Jesus Gonzalez Work Phone: [facility]08-23-2023 07:10-0400 Body vvnycg722.05 kgMD Jesus Gonzalez Work Phone: [facility]07-18-2023 09:30-0400 Body qtecll018.1 cmCjoni Adiafede Other [employer] Other 07-18-2023 09:30-0400Body mass index (BMI) [Ratio] 36.94 kg/p0Nibuwiu Earlinepiedad Other [employer] Other 07-18-2023 09:30-0400Body ubgapk172.7 kgCamseemamarie Adiatty Other [employer] Other 07-18-2023 09:30-0400Diastolic blood linwowom12 mm[Hg] Russell Shields Other [employer] Other 07-18-2023 09:30-0400Systolic blood zwktviok030 mm[Hg] Russell Difede Other [employer] Other 01-16-2023 15:28-0500Body cugmiu442.08 kgZulema Wood MD Work Phone: [facility]01-16-2023 15:28-0500Diastolic blood lohdnkbk86 mm[Hg]Zulema Wood MD Work Phone: [facility]01-16-2023 15:28-0500Heart rate99 /min Zulema Wood MD Work Phone: [facility]01-16-2023 15:28-0500Systolic blood lsuokzxv790 mm[Hg]Zulema Wood MD Work Phone: [facility]11-03-2022 15:45-0400Body evhqkn150.1 cmJeharmony Bowles Other [employer] Other 07-18-2022 14:00-0400Body gdpynb925.1 cmJeharmony Bowles Other [employer] Other 07-18-2022 14:00-0400Body mass index (BMI) [Ratio]39.6 kg/c4Xzsquwshharmony Bowles Other [employer] Other 07-18-2022 14:00-0400Body .96 kgJenntre Bowles Other [employer] Other 05-16-2022 14:15-0400Body wiustq558.1 cmBeti Bowles Other [employer] Other 05-16-2022 14:15-0400Body mass index (BMI) [Ratio] 39.93 kg/x2Kroxyydhtre Bowles Other [employer] Other 05-16-2022 14:15-0400Body ovbigq834.86 kgJeharmony Bowles Other [employer] Other 05-09-2022 11:03-0400Body fzlibi696.1 Nabil Wood MD Work Phone: [facility]05-09-2022 11:03-0400Body .06 kgZulema Wood MD Work Phone: [facility]05-09-2022 11:03-0400Diastolic blood kpucvqtz88 mm[Hg]Zulema Wood MD Work Phone: [facility]05-09-2022 11:03-0400Heart nhdi905 /minSandrew Wood MD Work Phone: [facility]05-09-2022 11:03-0400Systolic blood yvglgxgb023 mm[Hg]Zulema Wood MD Work Phone: [facility]03-09-2022 16:15-0500Body .1 Raphael Gomes Other [employer] Other 03-09-2022 16:15-0500Body mass index (BMI) [Ratio] 39.93 kg/a2Tpoawrybryant Gomes Other [employer] Other 03-09-2022 16:15-0500Body oqpwyw372.86 kgCollbryant Gomes Other [employer] Other 01-25-2022 15:15-0500Body .1 Ulissesollbryant Gomes Other [employer] Other 01-25-2022 15:15-0500Body mass index (BMI) [Ratio] 39.43 kg/y8Jhviwhu Calvmary Other [employer] Other 01-25-2022 15:15-0500Body ygntum161.5 kgCollbryant Gomes Other [employer] Other 12-15-2021 16:15-0500Body .1 Ulissesollbryant Gomes Other [employer] Other 12-15-2021 16:15-0500Body mass index (BMI) [Ratio] 38.77 kg/z6BmsblcyElyssa Gomes Other [employer] Other 12-15-2021 16:15-0500Body qgodlj846.69 kgCojoe Gomes Other [facility] [employer] Other Encounters Encounter DateEncounter TypeCare ProviderFacilityStart: 07-17-2025 End: 28-70-5567Vvqybqx encounter procedureJesus Langston MD-Electrodiagnostics Work Phone: Start: 07-17-2025 End: 75-88-6302gxodifrcrwGodmnto M Hoy MD Work Phone: [phone]-RgxmjdmpzprepwhmjwKovhl: 07-12-2025 End: 26-84-3551xsazttaemwRfppidg M Hoy MD Work Phone: [phone]-Dyfiwqpiy Health OrthopedicsStart: 07-12-2025 End: 14-59-1449Vgchuhl encounter procedureCojoe Gomes MD-[facility] Work Phone: Start: 07-10-2025 End: 25-63-5904Qvfkkp outpatient new 30 minutesToanais Greene MD Work Phone: [facility] [place] AllergyComment on above:Recurrent sinus infections (Primary Dx); Obstructive sleep apneaStart: 07-10-2025 End: 68-33-3319lawdkpbfvkUBBE E CESARBASEKNot AvailableStart: 07-10-2025 End: 36-26-8034Ylbpth flowsheetSean Greene MD Work Phone: [facility] [place] AllergyStart: 07-10-2025 End: 67-67-3199Olnzab flowsheetSean Greene MD Work Phone: [facility] [place] AllergyStart: 07-10-2025 End: 91-05-2158Wnwtqc OnlySean Greene MD Work Phone: NOQD External Department UnsolicitedStart: 06-27-2025 End: 12-32-0473Kaposcg encounter Isa Ocampo REGULATOR OPERATOR-C-MRI [facility] [place] Work Phone: Start: 06-27-2025 End: 68-03-3355iddpczldeaRgkofiu M Hoy MD Work Phone: [facility] Work Phone: Start: 06-27-2025 End: 59-58-0298Hnfqxokjf Mary Anne Mayberry DMD Work Phone: Dental ClinicStart: 06-27-2025 End: 25-33-6730datoazio oral evaluation - established patientJesus Gonzalez MDCatskill [facility] DistrictStart: 83-99-3915bcrganxblsTeffsgl Hoy [facility] DEPARTMENTStart: 06-26-2025 End: 01-55-9780Kynqwga encounter procedureJseus Langston MD-[facility] Work Phone: Start: 06-26-2025 End: 36-64-5651tvvdpmpknlZsuyhrg M Hoy MD Work Phone: [facility] Work Phone: Start: 40-26-8380Obyprpcjb for general adult medical examination without abnormal findingsJesus Bui [facility] Start: 06-22-2025 End: 95-09-7777qnximnsijyFQWIA P MATHAIFacility:[facility] Campustart: 06-19-2025 End: 98-25-2452Yderrcd encounter procedureJesus Langston MD-CT Scan [facility] [place] Work Phone: Start: 06-19-2025 End: 31-11-9116kyjqxibeeqAjwteuj M Hoy MD Work Phone: [facility] Work Phone: Start: 06-13-2025 End: 88-41-0254Yfrcupz encounter procedureJesus Langston MD-Ultrasound [facility] [place] Work Phone: Start: 06-13-2025 End: 28-41-9882ptiujdpcigRsjkkpl M Hoy MD Work Phone: [facility] Work Phone: Start: 06-06-2025 End: 07-38-2939Unalyyncm encounterLinmohamud Dorsey REGULATOR OPERATOR Work Phone: [facility] MedicineStart: 06-05-2025 End: 38-32-7502Rbheuozgb department patient visitJesus Gonzalez MD Work Phone: [phone]-Rnrndwezk Room Work Phone: Start: 06-05-2025 End: 42-92-9607gyziuddmswGBORCQH N AUSTINNot AvailableStart: 06-05-2025 End: 02-92-2304Oxgqzp outpatient visit 25 minutesLinmohamud Dorsey REGULATOR OPERATOR Work Phone: [facility] Urgent CareComment on above:Rib pain on right side (Primary Dx); Sprain of costal cartilage, initial encounterStart: 05-30-2025 End: 52-18-7163tlddjohvkbOffsyqe M Hoy MD Work Phone: [facility] Work Phone: Start: 05-30-2025 End: 43-71-6925Rrmhtmf encounter procedureKenalini Nuñez [facility] Work Phone: Start: 05-30-2025 End: 62-96-2586Xdwtbzw encounter procedureKrishan Nuñez [facility] Start: 05-30-2025 End: 17-95-8135onlnnpxtfcLxhhmph M Hoy MD Work Phone: [facility] Work Phone: Start: 05-29-2025 End: 18-17-4813bkqcvgfulvZhyopqbJericho Hollingsworth MDFacility:[facility] [place] Start: 05-26-2025 End: 91-98-2987Rpaoipg encounter procedureJesus Langston [facility] Hospitaltart: 05-26-2025 End: 73-53-0139gpadncdgqgWcvesgg M Hoy MD Work Phone: [facility] Work Phone: Start: 05-24-2025 End: 08-59-6492Psclou outpatient visit 5 minutesSunavin Mckinney [facility] Work Phone: [facility]: 05-23-2025 End: 28-22-9794Frljik outpatient visit 25 minutesYola Wilburn NP Work Phone: [facility] Urgent CareComment on above:Fibromyalgia Start: 05-23-2025 End: 78-65-3298gpjappvxmuLAYCVRC R LACONISNot AvailableStart: 05-17-2025 End: 13-53-4897FzisctLpfstdcd Hamdan APRN.RELASTER Work Phone: Neurology Headache [facility] FHCComment on above:Refill RequestStart: 04-25-2025 End: 17-40-5482CabowtPdyhp P Mathai MD Work Phone: RheumatologyComment on above:Refill RequestStart: 04-24-2025 End: 28-00-7363vesafrftxeZrkxxnfJericho Hollingsworth MDFacility:[facility] [place] Start: 04-12-2025 End: 96-10-1477Hptwmooabncm consultation with Balbina Fenton APRN.RELASTER Work Phone: NeurologyStart: 04-12-2025 End: 92-73-2854qptrjaygjxYacopdry Hamdan APRN.RELASTER Work Phone: NeurologyComment on above:Meningioma (HCC) (Primary Dx); Chronic daily headacheStart: 03-29-2025 End: 39-31-8501Yttvyhqyckpk consultation with Whitley Pineda MD Work Phone: [facility] CenterStart: 03-29-2025 End: 01-91-4874icaoyogvdzPsede F Recinos MD Work Phone: [facility] Brain Tumor CenterComment on above: Intracranial meningioma (HCC) (Primary Dx); Postprocedural state; Dizziness and giddinessStart: 03-26-2025 End: 33-18-3389ejhntgvpllFiezwRegi Pineda MD Work Phone: [facility] Brain Tumor CenterComment on above:Incision Start: 03-22-2025 End: 91-42-9786nxwwsbpirpCayqwvm M Hoy MD Work Phone: [facility] Work Phone: Start: 03-22-2025 End: 67-91-8479Xehdosb encounter procedureCojoe Gomes MD-[facility] Work Phone: Start: 03-20-2025 End: 84-66-5636UfrowdVvvez Chotai MD Work Phone: Endovascular CenterComment on above:Refill Request Start: 03-15-2025 End: 34-46-1031TjnhfgUakrn Chotai MD Work Phone: Endovascular CenterComment on above:Refill RequestS/P craniotomy (Primary Dx)Start: 03-13-2025 End: 10-52-5035Dvjlnl-up encounterSusamarie Wood MD Work Phone: RheumatologyStart: 03-13-2025 End: 56-59-2454Fcswbx outpatient visit 10 minutesSusamarie Mckinney [facility]-PONTIACPeggy Work Phone: [facility] Hospitaltart: 03-12-2025 End: 90-08-8680FfcsvpTkfyzfdn Hamdan APRN.CNP Work Phone: Neurology [facility] FHCComment on above:Refill RequestStart: 03-08-2025 End: 46-44-8248Xrvdomzgx encounterSmarilyn Phillips [facility] [place] Comment on above:Surgical FollowupStart: 03-06-2025 End: 07-67-3289GnyssjYhcgt P Mathai MD Work Phone: RheumatologyComment on above:Refill RequestStart: 03-06-2025 End: 56-11-5641Ntyhvcb evaluation of patient and reportSmarilyn BranhamSt. Elizabeth Hospital Brain Tumor [place]Comment on above:S/P craniotomy (Primary Dx); Intracranial meningioma (HCC); Postop checkStart: 03-06-2025 End: 71-25-0993xtiscaiuluXIWIHTT Rae CARLOSFacility:[facility] HospitalStart: 03-02-2025 End: 41-54-4473Yqdmmcihe to same day surgery Massiel Moy APRN.CNP Work Phone: NeurosurgeryComment on above:Benign neoplasm of meninges (HCC) (Primary Dx)Start: 03-02-2025 End: 38-79-0415Tlozgshltkti consultation with Lamont Moy APRN.RELASTER Work Phone: NeurosurgeryStart: 03-02-2025 End: 21-15-9852rkaysespvgLQSFOEV Rae CARLOSFacility:[facility] Campustart: 02-24-2025 End: 08-56-7102ZvqawjSzvrc P Mathai MD Work Phone: RheumatologyComment on above:Refill RequestStart: 02-23-2025 End: 34-07-9481Vbemdiguo encounterSmarilyn BranhamSt. Elizabeth Hospital [facility] [place] Comment on above:Surgical FollowupStart: 27-72-4648Swvejsenq for other preprocedural examinationPABLO F RECINOSCleBlanchard Valley Health System [facility] HospitalStart: 02-20-2025 End: 72-61-2207Qvclqticxd and management of inpatientJESUS GONZALEZ Facility:[facility] HospitalStart: 02-17-2025 End: 72-62-4113Twyzrcsid encounterSgrant Phillips [facility] Comment on above:PreOp CallStart: 02-15-2025 End: 28-53-6753Uxklzvbexatm consultation with Whitley Pineda MD Work Phone: [facility] Brain Tumor CenterStart: 02-15-2025 End: 81-27-1579bmiodaxralTevfe F Recinos MD Work Phone: [facility] Brain Tumor CenterComment on above: Intracranial meningioma (HCC) (Primary Dx)ConsentStart: 02-15-2025 End: 99-77-9701Gikgkhvby encounterMehul Martin APRN.CNP Work Phone: pre AnesthesiaComment on above:Patient UpdateStart: 02-15-2025 End: 19-44-0329agdajrrkxdUAMLXXP DAVISFacility:[facility] Campustart: 02-14-2025 End: 81-59-2182Ezgyzhm encounter statusMri (1.5t) Work Phone: [facility] Hospitaltart: 02-14-2025 End: 23-07-5218Dtfilwlwij hospital visit by physiciandamien [facility] Alyssa (1.5t) Work Phone: RadiologyComment on above:Intracranial meningioma (HCC) [D32.0]Start: 02-14-2025 End: 41-04-9501Dgedipymr to [facility] 2 Work Phone: pre AnesthesiaStart: 02-14-2025 End: 09-99-6706Gqtrvmdnuj consultationDesoto Memorial Hospitalain 2 Work Phone: pre AnesthesiaComment on above:Pre-op [...] 44.9 in adult; Inflammatory arthritisStart: 02-14-2025 End: 61-97-2081Ocwgdcg encounter statusB[facility] 2 Work Phone: [facility] Hospitaltart: 02-14-2025 End: 25-66-4903Euowemctzfcgz examination doneMatthew [place] [address] Work Phone: [facility] Work Phone: Start: 02-14-2025 End: 78-92-0640blluwuobrlJGNYGBP M HOYFacility:[facility] Campustart: 07-91-0147Ogxikwwlr for other preprocedural examinationPABLO RECINOSCleBlanchard Valley Health System [facility] HospitalStart: 02-10-2025 End: 88-70-2036Yjvqlpr encounter procedureJesus Gonzalez MD Work Phone: [facility]-Ultrasound [facility] [place] Work Phone: Start: 02-10-2025 End: 88-35-9647ybvrsnppdiJemngjb M Hoy MD Work Phone: [facility] Work Phone: Start: 02-01-2025 End: 79-77-4814Aoffgmm encounter procedureJesus Gonzalez MD Work Phone: [facility] GroupUn[facility] Work Phone: Start: 01-23-2025 End: 76-54-1244XazpjtUbfbpghg Hamdan SCIENTIFIC ADVISOREstefanyRELASTER Work Phone: Neurology Headache [facility] HospitalCComment on above:Med Change RequestStart: 01-06-2025 End: 26-74-9520vqleoreudrDTOYQUJ M HOYFacility:[facility]ustart: 12-29-2024 End: 91-52-4065LcwwjtMxmkiorp Hamdan SCIENTIFIC ADVISOREstefanyRELASTER Work Phone: Neurology Headache [facility] FHCComment on above:Refill RequestStart: 12-28-2024 End: 54-50-6174Wrxbvy outpatient visit 25 minutesZulema Wood MD Work Phone: RheumatologyComment on above:Inflammatory arthritis (Primary Dx); Fibromyalgia; Encounter for medication monitoringStart: 12-28-2024 End: 56-87-7667xanpgdqxnnOBFXJ P MATHAIFacility:[facility] Campustart: 12-27-2024 End: 55-89-9608zgynrguqdnDjgczgw M Hoy MD Work Phone: [facility] Work Phone: Start: 12-27-2024 End: 79-26-7109Aghkyos encounter Daniel Gonzalez MD Work Phone: [facility] Work Phone: Start: 12-13-2024 End: 95-25-1847Ogozcqb encounter Daniel Gonzalez MD Work Phone: [facility] Hospitaltart: 12-13-2024 End: 93-68-0551azaksfxbhqUkcjboq M Hoy MD Work Phone: [facility] Work Phone: Start: 12-05-2024 End: 50-18-1347Hpqcwlnjd encounterSgrant Phillips [facility] Comment on above:Care Coordination (MyChart Follow up - Surgery Planning )Start: 11-03-2024 End: 70-96-4175Yhuqmrh encounter Daniel Gonzalez MD Work Phone: [facility] Physician [facility] Work Phone: Start: 11-03-2024 End: 78-30-3903bmvfytmgxrHyudqzv M Hoy MD Work Phone: [facility] Work Phone: Start: 10-10-2024 End: 31-42-1618Fccgfrovg encounterSandrew Wood MD Work Phone: rheumatologyComment on above:[employer] - Other (Lab order problem/)Refill RequestStart: 09-27-2024 End: 01-66-2964stkktyncnmJjwnhsq M Hoy MD Work Phone: [facility] Work Phone: Start: 09-27-2024 End: 95-83-5314Cncvllo encounter Daniel Gonzalez MD Work Phone: [facility] Physician [facility] Work Phone: Start: 09-20-2024 End: 71-11-5164Jhjhefxxs encounterSandrew Wood MD Work Phone: rheumatologyComment on above:Results (Lab results from [facility])Start: 09-20-2024 End: 19-16-5405Hmrccfj encounter Daniel Gonzalez MD Work Phone: [phone] [place] [address] Ctr-Lab [facility] Hospitaltart: 09-20-2024 End: 16-45-0789shybmhynhtAkjhsnt M Hoy MD Work Phone: [facility] Work Phone: Start: 09-16-2024 End: 56-49-1222Jrrfhgs encounter Daniel Gonzalez MD Work Phone: [phone] [place] [address] Ctr-[facility] Work Phone: Start: 09-16-2024 End: 50-66-8515azrdcbatbnXxkmwqw M Hoy MD Work Phone: [facility] Work Phone: Start: 09-09-2024 End: 56-35-8405kmvlmpgaphAxrrbSharron Wood MD Work Phone: rheumatologyStart: 09-09-2024 End: 30-67-1700Ysjpbnn encounter Andres Wood MD Work Phone: RheumatologyComment on above:LabsStart: 08-28-2024 End: 96-44-2548DioviuNnulb P Mathai MD Work Phone: RheumatologyComment on above:Refill RequestStart: 08-01-2024 End: 02-75-5632tafkzpawkhFqouhif Vytautas Giedraitis MDFacility:PM Julio C Start: 07-18-2024 End: 58-70-3178mgqhqmomuuAoesdlv Vytautas Giedraitis MDFacility:[facility] [place] Start: 07-13-2024 End: 22-98-8502osmxyzqrehYZX C MILLERNot AvailableStart: 07-13-2024 End: 68-06-2942Fpesvo outpatient visit 25 minutesKirae Polanco REGULATOR OPERATOR Work Phone: [facility] S[facility] UCComment on above:Tooth infection (Primary Dx)Start: 07-04-2024 End: 77-20-0634gmmhmaogeqVzgyngg Vytautas Giedraitis MDFacility:PM Juli Oc Start: 06-22-2024 End: 31-78-6476dzsgkgatzxAA Jesus M Hoy Work Phone: [facility] Work Phone: Start: 06-22-2024 End: 46-04-5546Koxdqzo encounter procedureMD Jesus Hoy Work Phone: [facility] CenterStart: 06-21-2024 End: 42-08-4079axawsuendmVL Jesus M Hoy Work Phone: [facility] Work Phone: Start: 06-21-2024 End: 92-78-3679Hdapyol encounter procedureMD Jesus Hoy Work Phone: [facility] Physician Group-[facility] Work Phone: Start: 06-20-2024 End: 15-49-7777dkhcahrlsmBhzgphy Vytautas Giedraitis MDFacility:PM Julio C Start: 05-30-2024 End: 70-93-2454Zofyqru encounter procedureSandrew Wood MD Work Phone: RheumatologyComment on above:Inflammatory arthritis (Primary Dx); Fibromyalgia; Medication monitoring encounterStart: 05-25-2024 End: 24-47-3323JnpeipLxvxwtki Juan Luisdamarie SCIENTIFIC ADVISOR.RELASTER Work Phone: [facility] FHCComment on above:Refill RequestStart: 05-12-2024 End: 52-82-0855vdhjlhnuddCT Jesus Langston Luispiedad Work Phone: [facility] Work Phone: Start: 05-12-2024 End: 02-19-1955Qpurrmv encounter procedure Jesus Smithpiedad Work Phone: [facility]-Lab [facility] CenterStart: 41-77-7847TqpblcEzqom P Mathai MD Work Phone: RheumatologyComment on above:Refill RequestStart: 50-56-2119sekadgimugMnhrljnf Juan Luisdamarie SCIENTIFIC ADVISOR.RELASTER Work Phone: [facility] FHCComment on above:RobaxinStart: 56-79-0541mpdlryazrbVhbsegai Juan Luisdamarie SCIENTIFIC ADVISOR.RELASTER Work Phone: [facility] FHCComment on above:InsuranceStart: 71-99-0030Ucxxmucdo encounterPajorge Pineda MD Work Phone: [facility] Brain Tumor CenterComment on above:epidural steroid injectionStart: 03-04-2024 End: 96-70-3655natvefegvyRC Jesus Langston Luispiedad Work Phone: [facility] Work Phone: Start: 03-04-2024 End: 36-16-2667Vldxffp encounter procedure Jesus Hoy Work Phone: [facility] Physician Group-[facility] Work Phone: Start: 02-15-2024 End: 51-74-3178eeydlarsecYS Jesus Langston Hopiedad Work Phone: [facility] Work Phone: Start: 02-15-2024 End: 31-82-3208Fodzwua encounter procedureMD Jesus Gonzalez Work Phone: [facility]-Ultrasound [facility] [place] Work Phone: Start: 76-27-5622Vzejwtczo encounterMonilesh Fenton SCIENTIFIC ADVISOR.RELASTER Work Phone: NeurologyComment on above:Insurance Authorization; Aurelio DOYLE - Medicare / [employer].Start: 02-09-2024 End: 09-90-8073ykjzyenavbAI Douglas M Hopiedad Work Phone: [facility] Work Phone: Start: 02-09-2024 End: 52-38-4634Pptekfq encounter procedureMD Jesus Gonzalez Work Phone: [facility]-MRI [address] Work Phone: Start: 02-05-2024 End: 64-72-0540qnghyncgxdGkbhsweo Hamdan SCIENTIFIC ADVISOR.RELASTER Work Phone: Neurology Headache [facility] FHCComment on above:Meningioma (HCC) (Primary Dx); Chronic daily headacheStart: 02-05-2024 End: 31-01-1931Fltjxaepztxx consultation with Balbina Fenton APRN.RELASTER Work Phone: Neurology Headache [facility] FHCStart: 02-02-2024 End: 14-29-3453bitnhlvdzpUxzohc Appointments Work Phone: [facility] Brain Tumor CenterComment on above: Intracranial meningioma (HCC) (Primary Dx)Start: 02-02-2024 End: 95-99-2679Nxjuiwyvcaxc consultation with patientFellow Appointments Work Phone: [facility] Brain Tumor CenterStart: 22-93-3127Mfmbstaus encounterSgrant Phillips RNFormerly [facility] Brain Tumor CenterComment on above: AppointmentStart: 23-80-9225YdgbyzJnfpzg Goforth MD Work Phone: Neurology Headache [facility] FHCComment on above:Refill RequestStart: 45-48-4141ezjxuvkbnzXOVXQ F RECINOSFacility:[facility]Start: 01-29-2024 End: 62-22-1852Pwuwupeyel hospital visit by physicianCt [facility] Work Phone: RADIO CT SCAN LODI HOSPComment on above: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 Work Phone: Start: 75-23-5305Tvphjshxc Rachel Phillips RN [facility] Brain Tumor CenterComment on above:Schedule Surgery (Surgery Planning )Start: 65-99-7617Ijzdnixly Dulce Wood MD Work Phone: RheumatologyComment on above:ResultsStart: 01-08-2024 End: 52-94-3149knyeiwruapDV Jesus Gonzalez Work Phone: [facility] Work Phone: Start: 01-08-2024 End: 78-80-1338Ytvaofz encounter procedureMD Jesus Gonzalez Work Phone: [facility]tart: 12-91-3097Uqfovgdqf encounterSgrant Phillips RNBurkaet Brain Tumor CenterComment on above:Schedule SurgeryStart: 95-48-0261Yfzxgydnk encounterSandrew Wood MD Work Phone: RheumatologyComment on above:Lab Orders/FAXStart: 26-70-6157HlrqojFdkerRebecca Wood MD Work Phone: RheumatologyComment on above:Refill RequestStart: 11-25-2023 End: 38-12-2519Tsgsinr encounter procedureMD Jesus Gonzalez Work Phone: [facility] Physician [facility] Work Phone: Start: 67-08-0334CcsfisCsobuRebecca Wood MD Work Phone: RheumatologyComment on above:Refill RequestStart: 89-69-0935Ievodhsuc encounterSmarilyn Phillips RNPage Brain Tumor CenterComment on above:Care Coordination (follow up)Start: 11-11-2023 End: 72-92-7915Shngyos encounter procedureMD Jesus Gonzalez Work Phone: [facility]-Lab [facility] CenterStart: 39-89-1318GsbxhkSbjwxRebecca Wood MD Work Phone: RheumatologyComment on above:Refill RequestStart: 25-95-4072EvidjaNqlrmRebecca Wood MD Work Phone: RheumatologyComment on above:Refill RequestStart: 33-46-8689Lbwqrwicl to same day surgery Curly Pineda MD Work Phone: [facility] Brain Tumor CenterComment on above:Surgery Start: 11-63-3163cqmxicxsnaTctrq F Recinos MD Work Phone: [facility] MAINStart: 04-80-2942Kaodzopay encounterErik Pineda MD Work Phone: [facility] Brain Tumor CenterComment on above:Patient Update (Discuss Surgery March 2024)Start: 06-30-2023 End: 37-32-1520Qlbkvks encounter procedureErik Pineda MD Work Phone: [facility] Brain Tumor CenterComment on above: Intracranial meningioma (HCC) (Primary Dx)Start: 06-26-2023 End: 17-94-9780Znehpb outpatient new 45 minutesFahad Corey MD Work Phone: Neurology Headache [facility] FHCComment on above:Medication overuse headache (Primary Dx); Brain mass; Meningioma (HCC); Chronic daily headacheStart: 05-22-2023 End: 81-90-8240kumfpkoxsiMN Jesus M Hoy Work Phone: [facility] Work Phone: Start: 05-22-2023 End: 99-45-7989Felfojx encounter procedureMD Jesus Hoy Work Phone: [facility] Hospitaltart: 86-99-1073Uszbiabdy encounterMoira Goodrich APRN.CNP Work Phone: [facility] Brain Tumor CenterComment on above:TRIAGE Start: 05-06-2023 End: 33-04-5552xivsuphougQH Jesus M Hoy Work Phone: [facility] Work Phone: Start: 05-06-2023 End: 82-45-8772Hxipcbl encounter procedureMD Jesus Hoy Work Phone: [facility]-MRI [facility] [place] Work Phone: Start: 04-29-2023 End: 09-49-4048tgwqhjwvuaSO Jesus M Hoy Work Phone: [facility] Work Phone: Start: 04-29-2023 End: 30-88-0579Nwdetgt encounter procedureMD Jesus Hoy Work Phone: [facility] Work Phone: Start: 04-15-2023 End: 34-37-4236bkxtezcydeVI Jesus Gonzalez Work Phone: [facility] Work Phone: Start: 04-15-2023 End: 28-06-0385Tbhpqgb encounter procedureMD Jesus Gonzalez Work Phone: [facility] Hospitaltart: 48-40-3561GrlvzzWaipz P Mathai MD Work Phone: RheumatologyComment on above:Refill RequestStart: 26-35-3142AivlomHojzu P Mathai MD Work Phone: RheumatologyComment on above:Refill RequestStart: 04-06-2023 End: 48-83-5210Ewwrobl encounter procedureMD Jesus Gonzalez Work Phone: [facility] Work Phone: Start: 03-31-2023 End: 71-29-7966quxutaqoynRnvbori Disophiay Other [facility] [employer] Other Start: 56-21-2975Oovlqav encounter procedureCameromarie PattenyFPG GastroenterologyStart: 22-48-6850VoxxxcXrkif P Mathai MD Work Phone: RheumatologyComment on above:Refill RequestStart: 12-92-7248FjgldwGprqu P Mathai MD Work Phone: RheumatologyComment on above:Refill RequestStart: 12-17-2022 End: 51-86-2515vskxvdobjqOtrxwfe Calvey Other [facility] [employer] Other Start: 00-00-6395Jtallz outpatient visit 15 minutes Elyssa CalveyFPG [facility] OrthopedicsStart: 99-00-5290wymjwcbhorMpvjt P Mathai MD Work Phone: RheumatologyComment on above:FibroStart: 10-10-2022 End: 30-15-9760hbxxrbfmaoEW JESUS HOYFacility:E6Jshdg: 09-29-2022 End: 62-75-3141Iahelyi encounter procedureSandrew Wood MD Work Phone: RheumatologyComment on above:Inflammatory arthritis (Primary Dx); Myalgia; FibromyalgiaStart: 63-42-8977Pnwnfmgkw encounterSandrew Wood MD Work Phone: RheumatologyComment on above:Orders (Plaquenil)Start: 09-24-2022 End: 39-00-7993Hrttlix encounter procedureMD Jesus Hoy Work Phone: [facility] Start: 09-24-2022 End: 45-09-5768hbkwaikmftZU Jesus M Hoy Work Phone: [facility] Work Phone: Start: 32-32-2203Luuawx outpatient visit 15 minutes Elyssa CalveyFPG [facility] OrthopedicsStart: 49-89-5679Xvbmma outpatient visit 15 minutesColleen CalveyFPG [facility] OrthopedicsStart: 08-05-2022 End: 01-37-9992jgzgjmottoNR Jesus M Hoy Work Phone: [facility] Work Phone: Start: 08-05-2022 End: 62-64-8136Fiqnunk encounter procedureMD Jesus Hoy Work Phone: [facility] Start: 07-29-2022 End: 69-50-5668servmipnalNN Jesus M Hoy Work Phone: [facility] Work Phone: Start: 07-29-2022 End: 35-77-0208Bitllum encounter procedureMD Jesus Hoy Work Phone: [facility] CampusStart: 07-17-2022 End: 92-81-2829payrzfozunUclujkjy [place] Other [employer] Other Start: 91-41-5397Fzgequ outpatient visit 15 minutes Beti Reynoso [facility] OrthopedicsStart: 06-25-2022 End: 44-93-3455gykxjigknjPtrdkild [place] Other nomineral [facility] Other Start: 53-76-8188Yxcjhy outpatient visit 15 minutes Beti Reynoso [facility]Start: 03-21-9266fiuaznsoopFW JESUS HOYFacility:H2Egsyu: 05-06-2022 End: 68-70-5363Rqfrjkg encounter procedureMD Jesus Hoy Work Phone: [facility] Start: 05-01-2022 End: 82-08-8802Ytppojc encounter procedureMD Jesus Hoy Work Phone: [facility] CampusStart: 03-31-2022 End: 33-99-4899hjfusbzndtPpfrsapm [place] Other [place] [employer] Other Start: 88-64-5953Zwfglc outpatient visit 15 minutes Beti Reynoso [facility]icsStart: 03-21-2022 End: 14-44-6223Hwdvophqbj RecurringMD Jesus Hoy Work Phone: [facility] [place] CreekStart: 01-27-2022 End: 52-80-3777wvhsyydtmxZtgevgoa [place] Other [employer] [facility] Other Start: 52-27-2976Lsfqsv outpatient visit 15 minutes Beti [facility]icsStart: 01-24-2022 End: 40-98-5386loewifwgtrWlekmwv [place] Other [employer] Other Start: 68-38-9553Lnhdqj outpatient visit 15 minutes Elyssa MireyaFPG [facility]Start: 01-20-2022 End: 95-72-8231beznjexjhdBiqbecqr [place] Other [employer] Other Start: 33-41-2035Eljkja outpatient visit 15 minutes Beti [facility] OrthopedicsStart: 01-20-2022 End: 65-61-4617Launvpq encounter Andres Wood MD Work Phone: RheumatologyComment on above:Inflammatory arthritis (Primary Dx); MyalgiaStart: 12-24-2021 End: 95-78-2398bgbpiwdxosLmhwymq [place] Other [facility] Other Start: 08-51-8125Pkmsul follow up visit related to original pxCollbryant JenkinsG [facility]icsStart: 12-19-2021 End: 33-89-6242mprrproeqrIqlzxrnv [place] Other [employer] Other Start: 56-41-9086Ygdwobick encounterBeti Bowles FPG [facility]icsStart: 12-02-2021 End: 99-29-9995ysiusidrucKmgnppmw [place] Other [employer] Other Start: 64-27-2925Ztktmy outpatient visit 15 minutes Beti [facility] OrthopedicsStart: 11-20-2021 End: 55-11-0304chebuopbbuIcueobq [place] Other [employer] Other Start: 05-35-1209Gcxcuy follow up visit related to original pxCollbryant [facility] OrthopedicsStart: 10-08-2021 End: 00-69-5921cadxfdzfvhIukvnaz [place] Other [employer] Other Start: 65-48-3295Uskmne outpatient visit 25 minutes Elyssa Ferny [facility]icsStart: 08-28-2021 End: 86-00-8757jynotyvffdMasmdwk [place] Other [employer] Other Start: 11-89-9572Kebdbw outpatient visit 25 minutes Elyssa Ferny [facility]icsStart: 08-12-2021 End: 06-36-8130wcujpkvfqiExgefzb [place] Other [employer] Other Start: 10-31-2920Iwrvipxic encounterColleen Ferny [facility]icsStart: 49-53-3367Dztwqd outpatient visit 15 minutesColleen Ferny [facility]icsStart: 45-46-3769Wufhtf outpatient visit 15 minutesJennifer Edgardo [facility] OrthopedicsStart: 05-11-2017 End: 82-75-7183IurpfbacioHFISRTL PHYSICIANFacility:[facility] Procedures DateProcedureProcedure DetailPerforming ClinicianStart: 62-77-0200Esuer X-ray of right wristJesus Gonzalez MD Work Phone: Start: 02-43-6753Tqpqr of gammaglobulin iga igd igg igm eachSean Greene MD Work Phone: Start: 37-34-4081Visleqsl blood count with white cell differential, automatedSean Greene MD Work Phone: Start: 20-55-4557Ctof ia hiv-2Todd E Jc MCGHEE Work Phone: Start: 32-37-7616HX pre/post mri xrayJesus Gonzalez MD Work Phone: Start: 64-64-9061MS thoracic spine wo conDserjio Gonzalez MD Work Phone: Start: 06-27-2025 End: 85-35-7780xhyhobqht - four radiographic imagesDoerik Gonzalez MDStart: 06-27-2025 End: 00-87-4741hofumb risk assessment and documentation, with a finding of moderate riskDoerik Gonzalez MDStart: 06-27-2025 End: 81-20-0663Bvembugnvhtca of current medicationsAtrium Health Jefe DMD Work Phone: Start: 06-27-2025 End: 69-97-9648Grccgxj of Tobacco use NarrativeAtrium Health Andreasan [facility] DMD Work Phone: Start: 06-27-2025 End: 86-61-3727qezgcrachmy counseling for control of dental diseaseDouglas Carlos MDStart: 06-27-2025 End: 32-87-4406kecq hygiene instructionsDoerik Gonzalez MDStart: 06-27-2025 End: 69-64-1043fswgtticiqr - adultDoerik Gonzalez MDStart: 18-43-5941Znqj energy X- ray absorptiometryJesus Gonzalez MD Work Phone: Start: 54-76-9224DL of chest without contrastJesus Gonzalez MD Work Phone: Start: 87-70-5009BF scan of thyroidJesus Gonzalez MD Work Phone: [phone]-art: 93-96-9499Zievs chest X-rayJesus Gonzalez MD Work Phone: Start: 60-70-5230Uxvyn X-ray of right shoulderJesus Gonzalez MD Work Phone: [phone]-art: 05-24-2025 End: 41-59-3419Csqlmibvyivrdlfqfpr acetateSusan Rice WHCNP Work Phone: Start: 03-13-2025 End: 68-57-2055Jebalsvyibjie of current medicationsSusan [facility] Work Phone: Start: 03-13-2025 End: 90-68-7684Wpwavzvpawwmhlepgot acetateSusan [facility] Work Phone: Start: 88-15-5812Hpr brain brain stem w/o w/contrast materialErik Pineda MD Work Phone: start: 21-59-1825Fmdzahvf screenPAJORGE PINEDAComment on above:Order Comment: Specimen Type: BLOOD SPECIMENOrdering Facility: [facility] [place] [facility] Address:[address] [place] [address] Performed By: #### [id number] ####CC MAIN BLOOD BANKCLIA [id number] [place] [address] [place] AMERICAStart: 02-10-2025 Ultrasonography of bilateral kidneysJesus Gonzalez MD Work Phone: Start: 57-73-9502Ibnuhn-up visitFollow UpSANDREW MUELLERStart: 52-26-7509Loany X-ray of right wristJesus Gonzalez MD Work Phone: Start: 93-63-9622Tqkae X-ray of left shoulderJesus Gonzalez MD Work Phone: Start: 58-44-4423Wdkvsfzbc mammography of bilateral breastsDouglas Carlos MCGHEE Work Phone: Start: 35-37-4283BV scan of thyroidMD Jesus Gonzalez Work Phone: [phone]-art: 35-49-6892IN pre/post mri xrayMD Jesus Gonzalez Work Phone: Start: 00-03-0612JP lumbar spine wo conMD Jesus Gonzalez Work Phone: [phone]-art: 97-21-8295SGU of cervical spine without contrastMD Jesus Hoy Work Phone: Start: 55-16-6680OYD of headMD Jesus Hoy Work Phone: Start: 04-29-2023 End: 39-82-9886Mowuqqhzs mammography of bilateral breastsMD Jesus Hoy Work Phone: Start: 80-25-8777Vhxgotlaxale gastric emptying studyMD Jesus Hoy Work Phone: Start: 48-09-0168Fycuz X-ray of right wristMD Jesus Hoy Work Phone: Start: 48-56-8741Urowl X-ray of right wristMD Jesus Hoy Work Phone: Start: 89-09-0959Nvcaw cultureMD Jesus Hoy Work Phone: [phone]-art: 89-26-2421Flgst X-ray of right wristMD Jesus Hoy Work Phone: Start: 16-19-1892Pzdbb depression screening assessment Zulema Wood MD Work Phone: Urine cultureMD Jesus Hoy Work Phone: Plan of Treatment DateCare ActivityDetailAuthorStart: 60-79-6251BrouvnijetSt. Anthony Hospital Work Phone: Start: 92-49-4854Drfhtwtejv A1c xtjvitqneqvExM8H [facility] Hospitaltart: 08-07-2025 End: 98-84-8316Oqwwpbd encounter gsjxbeflq02/24/2025 2:40 PM EST Office Visit [facility] [address] [place] [phone] Sean Greene MD [address] [place] [address] [facility]ergyStart: 08-04-2025 [facility]Franc[facility] Work Phone: Start: 99-98-0953Knwiairlhq, [facility] Work Phone: Start: 56-47-7499Znezn X-ray of right wristXR wrist RT min 3V*[facility] Centertart: 34-91-4991YL Wrist - right GE 3 ViewsWright-Patterson Medical Centertart: 07-10-2025 End: 78-19-5187Zvnzgrh encounter hsowigrfm70/27/2025 2:20 PM EDT Office Visit [facility] [address] [place] [phone] Sean Greene MD [address] [place] [address] ArrivedNOMS Giron AllergyComment on above:ArrivedStart: 07-10-2025 End: 86-31-5443WAC W Auto Differential panel - BloodCBC and differential Lab Routine Recurrent sinus infections Expected: 07/10/2025 (Approximate), Expires: 07/10/2026NOAR HealthcareComment on above:Expected: 07/10/2025 (Approximate), Expires: 07/10/2026Start: 07-10-2025 End: 45-27-5245Lqstpjzhec / Tetanus Antibody PanelDiphtheria / Tetanus Antibody Panel Lab Routine Recurrent sinus infections Expected: 07/10/2025 (Approximate), Expires: 07/10/2026NOAR HealthcareComment on above:Expected: 07/10/2025 (Approximate), Expires: 07/10/2026Start: 07-10-2025 End: 93-88-3624LEA-1/HIV-2 antigen/antibody combination immunoassayHIV-1 and HIV-2 antibodies Lab Routine Recurrent sinus infections Expected: 07/10/2025 (Approximate), Expires: 07/10/2026NOAR HealthcareComment on above:Expected: 07/10/2025 (Approximate), Expires: 07/10/2026Start: 07-10-2025 End: 54-94-8678KvY [Mass/volume] in Serum or PlasmaIgA Lab Routine Recurrent sinus infections Expected: 07/10/2025 (Approximate), Expires: 07/10/2026NOAR HealthcareComment on above:Expected: 07/10/2025 (Approximate), Expires: 07/10/2026Start: 07-10-2025 End: 14-50-4845DlC [Units/volume] in Serum or PlasmaIgE Lab Routine Recurrent sinus infections Expected: 07/10/2025 (Approximate), Expires: 07/10/2026NOAR HealthcareComment on above:Expected: 07/10/2025 (Approximate), Expires: 07/10/2026Start: 07-10-2025 End: 16-17-9740KsA [Mass/volume] in Serum or PlasmaIgG Lab Routine Recurrent sinus infections Expected: 07/10/2025 (Approximate), Expires: 07/10/2026[facility] Work Phone: Comment on above:Expected: 07/10/2025 (Approximate), Expires: 07/10/2026Start: 07-10-2025 End: 93-59-7358WmP [Mass/volume] in Serum or PlasmaIgM Lab Routine Recurrent sinus infections Expected: 07/10/2025 (Approximate), Expires: 07/10/2026NOAR HealthcareComment on above:Expected: 07/10/2025 (Approximate), Expires: 07/10/2026Start: 07-10-2025 End: 87-01-6676Jdsszpw toxoid, IgGTetanus toxoid, IgG Lab Routine Recurrent sinus infections Expected: 07/10/2025 (Approximate), Expires: 07/10/2026NOAR HealthcareComment on above:Expected: 07/10/2025 (Approximate), Expires: 07/10/2026Start: 06-29-2025 End: 17-55-5846Psufqeo encounter bmbwrqjaw05/16/2025 1:40 PM EDT Office Visit Rheumatology [address] [place] [address] Zulema Wood MD [address] [place] [address] 6 month follow upRheumatologyComment on above:6 month follow upStart: 04-65-4686Bzcpldelbp, [facility] Work Phone: Start: 45-71-7517Hgguxcw management education, guidance, and counselingDietary management education, guidance, and counseling [facility]tart: 67-97-5312Jswuxct referralDoerik Gonzalez MD timeframe: 6 Months. (related to Body mass index [BMI] 40.0-44.9, adult)[facility] Hospitaltart: 22-17-7861BschMckee Medical Center Work Phone: Start: 06-22-2025 End: 73-34-1570Xljpwii encounter /09/2025 2:20 PM EDT Office Visit Rheumatology [address] [place], [place] [id number] Zulema Wood MD [address] [facility] [place] [address] 6 month follow upRheumatologyComment on above:6 month follow upStart: 92-89-5486Ottwp X-ray of right shoulderXR shoulder RT min 2V*[facility]ertart: 90-65-0675AR Shoulder - right ViewsWright-Patterson Medical Centertart: 05-24-2025 End: 21-39-1639SqfuMckee Medical Center Work Phone: Start: 38-42-3348NIRRL-19 Vaccine ( season) COVID-19 Vaccine ( season)[facility] HealthcareStart: 03-66-2805Myodhjxyy vaccinationAvita Health System Bucyrus Hospitaltart: 04-12-2025 End: 56-33-7853jkxgqbfsej55/30/2025 7:00 AM EDT [facility] Neurology [address] [place] [address] Rachele Fenton APRN.RELASTER [address] [place], [place] [id number] Tension headachesNeurologyComment on above:Tension headachesStart: 03-29-2025 End: 36-76-2901oarjhzzugz61/16/2025 10:30 AM EDT [facility] [place] [address] [place] [address] Erik Pineda MD [address] [place] [address] postopFormerly [facility] Brain Tumor ViennaComment on above:postopStart: 03-13-2025 [facility] Work Phone: Start: 03-06-2025 End: 73-87-0301Ohjtoqp evaluation of patient and jnwccz2103/06/2025 10:30 AM EDT Nurse Visit [facility] Tumor [place] [address] [place] [phone] Shakila Phillips RN [address] [place] [address] postop [facility]ly [facility] Brain Tumor ViennaComment on above:postopStart: 03-02-2025 End: 41-34-7371Wtpabuqts to same day surgery ssqiss9003/02/2025 1:00 PM EDT [facility] Neurosurgery [facility] [address] [address] Stephanie Moy, SCIENTIFIC ADVISOR.RELASTER [address] [place] [phone] Surgical Pathology discussionNeurosurgery Comment on above:Surgical Pathology discussionStart: 02-20-2025 End: 52-09-4207Tgxbhubaa to same day surgery kjdeat9002/20/2025 12:45 PM EDT - 02/20/2025 6:45 PM EDT Surgery Admitting [address] [place] [address] Erik Pineda MD [address] [place] [address] ORBITOCRANIAL TO ANT CRAN FOSSA W/ SUPRAORB RIDGE OSTEOTOMY & ELEV FRONT&TEMP LOBEAdmittingComment on above:ORBITOCRANIAL TO ANT CRAN FOSSA W/ SUPRAORB RIDGE OSTEOTOMY & ELEV FRONT&TEMP LOBEStart: 02-20-2025 End: 16-99-3420Gniroosdidaqh ant cranial fossa w/o orbit exntjORBITOCRANIAL TO ANT CRAN FOSSA W/ SUPRAORB RIDGE OSTEOTOMY & ELEV FRONT&TEMP LOBE Intracranial meningioma (HCC) Preop testing 02/20/2025 12:45 PM [facility]AVILIONStart: 02-20-2025 End: 61-98-4583Yhctv/exc les base ant crnl fossa indrl w/wo grfRESECTION LESION BASE OF ANTERIOR CRANIAL FOSSA INTRADURAL W/ DURAL REPAIR Intracranial meningioma (HCC) Preop testing 02/20/2025 12:45 PM EDHILLCRE[facility]IN PAVILIONStart: 26-11-9320Tzzlyxwrle hospital visit by teblygfci80/09/2025 12:45 PM EDT Hospital Encounter Admitting [address] [place] [phone] Erik Pineda MD [address] [place], [place] [id number] Intracranial meningioma (HCC) [D32.0], Preop testing [Z01.818]AdmittingComment on above:Intracranial meningioma (HCC) [D32.0], Preop testing [Z01.818]Start: 02-20-2025 End: 82-93-2552Ouevmyrov to same day surgery eeycsb7402/20/2025 7:30 AM EDT - 02/20/2025 1:30 PM EDT Surgery Admitting [address] [place] [address] Erik Pineda MD [address] [place] [address] ORBITOCRANIAL TO ANT CRAN FOSSA W/ SUPRAORB RIDGE OSTEOTOMY & ELEV FRONT&TEMP LOBEAdmittingComment on above:ORBITOCRANIAL TO ANT CRAN FOSSA W/ SUPRAORB RIDGE OSTEOTOMY & ELEV FRONT&TEMP LOBEStart: 02-20-2025 End: 69-56-8928Pmzvnzlbppawq ant cranial fossa w/o orbit exntjORBITOCRANIAL TO ANT CRAN FOSSA W/ SUPRAORB RIDGE OSTEOTOMY & ELEV FRONT&TEMP LOBE Intracranial meningioma (HCC) Preop testing 02/20/2025 7:30 AM [facility]IN PAVILIONStart: 02-20-2025 End: 43-69-6509Lbvly/exc les base ant crnl fossa indrl w/wo grfRESECTION LESION BASE OF ANTERIOR CRANIAL FOSSA INTRADURAL W/ DURAL REPAIR Intracranial meningioma (HCC) Preop testing 02/20/2025 7:30 AM [facility] MAIN PAVILIONStart: 35-28-4096Ouuqhylnau hospital visit by mknadvsex21/09/2025 7:30 AM EDT Hospital Encounter Admitting [address] [place] [address] Erik Pineda MD [address] [place] [address] Intracranial meningioma (HCC) [D32.0], Preop testing [Z01.818]AdmittingComment on above:Intracranial meningioma (HCC) [D32.0], Preop testing [Z01.818]Start: 02-15-2025 End: 54-58-5334Dypuxvbxf to same day surgery oypjwp5102/15/2025 2:30 PM EDT [facility] [address] [place] [address] Erik Pineda MD [address] [place] [address] surgery discussion/ consent / MRI review [facility] Brain Tumor ViennaComment on above:surgery discussion/ consent / MRI reviewStart: 02-14-2025 End: 59-55-9015XVAYUET BLOOD TYPECONFIRM BLOOD TYPE Blood Bank Routine Pre-op evaluation Expected: 02/14/2025, Expires: 05/16/2025leveland ClinicComment on above:Expected: 02/14/2025, Expires: 05/16/2025Start: 02-14-2025 End: 14-25-4421Srqyawlyhr A1c in BloodHEMOGLOBIN A1C Lab Routine Pre-op evaluation Type 2 diabetes mellitus without complication, withoutlong-term current use of insulin (HCC) Expected: 02/14/2025, Expires: 05/16/2025[facility] Work Phone: comment on above:Expected: 02/14/2025, Expires: 05/16/2025Start: 02-14-2025 End: 54-97-3969Aopgbqc encounter okdfxmmal90/03/2025 9:20 AM EDT Appointment Radiology [address] [place] [address] MRI BRAIN WO/W IVCONRadiologyComment on above:MRI BRAIN WO/W IVCONStart: 02-14-2025 End: 09-67-1850qvxvkzvhla33/03/2025 8:30 AM EDT Results Only [facility] [address] [place] [address] LabsLorain [facility] LaboratoryComment on above:LabsStart: 02-14-2025 End: 62-87-5764Laucomkllx bsotgfkcxxsh68/03/2025 7:40 AM EDT PAT Pre Anesthesia [address] [facility] [place] [place] [address] 2, Pacc [place] [address] [facility] [place] [address] PRE OP CLEARANCEPre Anesthesia Comment on above:PRE OP CLEARANCEStart: 01-06-2025 End: 33-94-1653xkeovuqurk82/25/2025 8:45 AM EDT [facility] Neurology Headache [facility] [address] [place] [address] Rachele Fenton, SCIENTIFIC ADVISOR.RELASTER [address] [place] [address] I want to stop taking my medicine Neurology Headache [facility] Hospitalomment on above:I want to stop taking my medicineStart: 12-28-2024 End: 40-82-9711Qkmmrsv encounter hxmicfito81/16/2025 9:20 AM EDT Office Visit Rheumatology [address] [place] [address] Zulema Wood MD [address] [place] [address] 6 month follow upRheumatologyComment on above:6 month follow upStart: 35-03-8370Qqfub X-ray of right wristXR wrist RT min 3V*[facility] Centertart: 63-61-7812ZB Wrist - right GE 3 ViewsWright-Patterson Medical Centertart: 35-42-2368Ttqcw X-ray of left shoulderXR shoulder LT min 2V*[facility] Centertart: 83-40-7723EM Shoulder - left ViewsWright-Patterson Medical Centertart: 01-01-2025Medicare [facility] Annual Wellness VisitMedicare Advantage Annual Wellness VisitAvita Health System Bucyrus Hospitaltart: 05-30-2024 End: 94-63-7347Lwzvepb encounter gqfuqfzgy15/16/2024 9:40 AM EDT Office Visit Rheumatology [address] [place] [address] Zulema Wood MD [address] [facility] [place] [address] Return in about 8 months (around 05/29/2024) for arthralgias, FM .RheumatologyComment on above:Return in about 8 months (around 05/29/2024) for arthralgias, FM .Start: 36-69-6871Ocvcr-19 Vaccine ( season)Covid-19 Vaccine ( season)[facility] Hospitaltart: 80-52-0374Ybrjo-19 Vaccine ( season)Covid-19 Vaccine ( season)[facility] Hospitaltart: 77-17-4752Kyergdidm vaccinationAvita Health System Bucyrus Hospitaltart: 04-04-2024 End: 37-25-6505Udogryzke to same day surgery hzxlie8704/04/2024 7:30 AM EDT - 04/04/2024 2:30 PM EDT Surgery Admitting [address] [place] [address] Erik Pineda MD [address] [place] [address] ORBITOCRANIAL TO ANT CRAN FOSSA W/ SUPRAORB RIDGE OSTEOTOMY & ELEV FRONT&TEMP LOBEAdmittingComment on above:ORBITOCRANIAL TO ANT CRAN FOSSA W/ SUPRAORB RIDGE OSTEOTOMY & ELEV FRONT&TEMP LOBEStart: 04-04-2024 End: 76-08-9526Klevrxnzrkipq ant cranial fossa w/o orbit exntjORBITOCRANIAL TO ANT CRAN FOSSA W/ SUPRAORB RIDGE OSTEOTOMY & ELEV FRONT&TEMP LOBE Intracranial meningioma (HCC) Preop testing 04/04/2024 7:30 AM EDTMC MAIN PAVILIONStart: 04-04-2024 End: 11-73-5267Qlrjf/exc les base ant crnl fossa indrl w/wo grfRESECTION LESION BASE OF ANTERIOR CRANIAL FOSSA INTRADURAL W/ DURAL REPAIR Intracranial meningioma (HCC) Preop testing 04/04/2024 7:30 AM EDTMC MAIN PAVILIONStart: 79-93-6228Yfdrdgnord hospital visit by iinnriull22/22/2024 7:30 AM EDT Hospital Encounter Admitting [address] [place] [address] Erik Pineda MD [address] [place] [address] Intracranial meningioma (HCC) [D32.0]AdmittingComment on above:Intracranial meningioma (HCC) [D32.0]Start: 03-22-2024 End: 72-68-2476Lsudbvc encounter procedurePre AnesthesiaComment on above:Preop, ORBITOCRANIAL TO ANT CRAN FOSSA W/ SUPRAORB RIDGE OSTEOTOMY & ELEV FRONT&TEMP LOBEPreop lab and nasal swabStart: 60-97-2518SLZKGZSL SCREENDIABETES SCREEN [facility] ClinicStart: 09-34-7814Saldforl ScreeningDiabetes ScreeningAvita Health System Bucyrus Hospitaltart: 02-05-2024 End: 66-01-7298urjbuschid10/24/2024 7:00 AM EDT [facility] Neurology Headache [facility] [address] [place] [address] Rachele Fenton, SCIENTIFIC ADVISOR.RELASTER [address] [place] [address] f/uNeurology Headache [facility] FHCComment on above:f/uStart: 01-29-2024 End: 88-80-4265Mxxgbyt encounter procedureRADIO MRI LODI HOSPComment on above:R Sphenoid Wing MeningiomaStart: 01-21-2024 End: 69-11-8349tbjepdjwdr54/09/2024 2:30 PM EDT [facility] [place] [address] [place] [address] Laron Lou DO, PhD [address] [facility] [address] [place] [address] Check up for headachesFormerly [facility] Brain Tumor ViennaComment on above:Check up for headachesStart: 85-12-9258Kefywjuclu Health ScreeningBehavioral Health ScreeningCleMercy Healthtart: 34-19-2710Dzwixyuhds AssessmentDepression AssessmentCleMercy Healthtart: 48-57-8263Gxdpb-19 Vaccine () Covid-19 Vaccine ()[facility] Hospitaltart: 57-34-1222Lnyjktupg vaccinationAvita Health System Bucyrus Hospitaltart: 10-60-3748SUQWZDDDX (FIT-DNA)COLOGUARD (FIT-DNA)[facility] Hospitaltart: 00-87-6160YpusmihhuoiKCOCDZMGZXHPvzkxjyen Clinic Start: 85-97-6219ONKYWUONUP CANCER SCREENINGCOLORECTAL CANCER SCREENINGCleMercy Healthtart: 37-95-4275YU COLONOGRAPHYCT COLONOGRAPHYCleMercy Healthtart: 46-64-4328XCCKA OCCULT BLOODFECAL OCCULT BLOODAvita Health System Bucyrus Hospitaltart: 2022 Lipid 1996 panel - Serum or PlasmaLipid ScreeningAvita Health System Bucyrus Hospitaltart: 05-66-5684Crrmq panelLipid ScreeningAvita Health System Bucyrus Hospitaltart: 02-68-4093JESUG SCREENLIPID SCREENCleMercy Healthtart: 58-33-4554Siehjxlmo for malignant neoplasm of colonCleMercy Healthtart: 78-08-4797SFWFRHGTINWIWIUUIAIWRFTAJQ [facility] Hospitaltart: 03-43-0344AYPLGWTFAD ASSESSMENTDEPRESSION ASSESSMENT [facility] Hospitaltart: 93-00-4681Ifeiq X-ray of right wristXR wrist RT min 3V* [facility]art: 05-06-2022 End: 23-50-4519Yvktgnu encounter procedureDeparted [facility] C[facility]-XRay Bree OrthoStart: 05-01-2022 End: 65-27-2990Nvhuidy encounter procedureDeparted [facility]-Lab Main CampusStart: 42-75-6028Dcstf depression screening assessmentDEPRESSION SCREENINGAvita Health System Bucyrus Hospitaltart: 44-04-2739WQyG/Tdap/Td Vaccines (2 - Tdap)DTaP/Tdap/Td Vaccines (2 - Tdap)[facility] HealthcareStart: 21-49-5072Eixza microalbumin profileDTaP,Tdap,Td Vaccine (1 - Tdap)[facility] Hospitaltart: 94-66-3359LZWTA-19 VACCINE (3 - Booster for Pfizer series)COVID-19 VACCINE (3 - Booster for Pfizer series)[facility] Hospitaltart: 39-48-4801ZDUPE-19 VACCINE (3 - Pfizer series)COVID-19 VACCINE (3 - Pfizer series)[facility] Start: 94-79-2129KXAKL-19 VACCINE (3 - Pfizer risk 4-dose series)COVID-19 VACCINE (3 - Pfizer risk 4-dose series)[facility]: [id number]-19 VACCINE (3 - Pfizer risk series)COVID-19 VACCINE (3 - Pfizer risk series) [facility]: [phone] ClinicStart: 2017 Screening for malignant neoplasm of breastAv[facility]: [id number] TESTINGHPV TESTINGAvita Health System Bu[facility] Hospital[facility]: [phone] for malignant neoplasm of cervixAvita Health System Bu[facility]: 31-38-0112QDR TESTINGPAP TESTING [facility]: 37-03-6986Hqhqenikx for malignant neoplasm of cervix [facility]: 62-88-3515Hofllpaqw B Vaccine (1 of 3 - 19+ 3-dose series)Hepatitis B Vaccine (1 of 3 - 19+ 3-dose series)[facility]: 50-03-1314Hdomqrozm B Vaccines (1 of 3 - 19+ 3-dose series)Hepatitis B Vaccines (1 of 3 - 19+ 3-dose series)[facility]: 73-53-0168Itskhwzpxmxw vaccinationPneumococcal Vaccine (1 of 2 - PCV)[facility] 1994 SHINGRIX VACCINE (1 of 2)SHINGRIX VACCINE (1 of 2)[facility]: 56-68-5536Jxxdy microalbumin profileAvita Health System Bucyrus Hospitaltart: 79-64-0217Zzoqup PCP Team Chronic Disease VisitAnnual PCP Team Chronic Disease VisitWilson [facility] Start: 68-27-7105Zbybilj ScreeningAnxiety ScreeningAvita Health System Bucyrus Hospitaltart: 82-66-9842Qgkbieytpx ScreeningDepression ScreeningAvita Health System Bucy[facility] Hospitaltart: 56-92-7954Yureqswpo B surface antibody levelLDL CholesterolWilson Street Hospital Start: 60-09-0621Ysnhicmg foot examinationDiabetic Foot ExamWilson Street Hospital Start: 90-06-9079Jytjzlsi screeningDilated Retinal ExamAvita Health System Bu[facility] Hospitaltart: 12-09-5259Rwudcwrob B screeningUrine Albumin:Creatinine RatioWilson Street Hospital Start: 26-75-0793MUNVZJYQJIMM (1 - PCV)PNEUMOCOCCAL (1 - PCV)[facility] Start: 05-24-0307Zcvehseaej A1c jnyvjbisxwoXgQ4RAjxmvbdks ClinicStart: 28-30-4046QCL Vaccines (1 of 1 - Standard series)MMR Vaccines (1 of 1 - Standard series)[facility]: 32-65-0028PRRIQWLEM B (1 of 3 - 3-dose series) HEPATITIS B (1 of 3 - 3-dose series)[facility]: 03-08-8664Twfetlufu B Vaccine (1 of 3 - 3-dose series)Hepatitis B Vaccine (1 of 3 - 3-dose series) [facility]: 62-73-5077Kpndhtdjc for malignant neoplasm of colonNOAR Healthcare End: 29-15-0622Crlpnpi aminotransferase [Enzymatic activity/volume] in Serum or PlasmaALANINE AMINOTRANSFERASE / SGPT Lab Routine Inflammatory arthritis Every 3 months for 4 Occurrencesstarting 09/09/2024 until 09/06/2025[facility] on above:Every 3 months for 4 Occurrences starting 09/09/2024 until 09/06/2025 End: 61-57-3240Xswpdxv aminotransferase [Enzymatic activity/volume] in Serum or PlasmaALANINE AMINOTRANSFERASE / SGPT Lab Routine Encounter for medication monitoring Every 3 months for 4 Occurrences starting 10/10/2024 until 10/10/[address]Comment on above:Every 3 months for 4 Occurrences starting 10/10/2024 until 10/10/2025 End: 33-28-4162Wgvtjoukp aminotransferase [Enzymatic activity/volume] in Serum or PlasmaASPARTATE AMINOTRANSFERASE/SGOT Lab Routine Inflammatory arthritis Every 3 months for 4 Occurrencesstarting 09/09/2024 until 09/06/2025[facility] Work Phone: Comment on above:Every 3 months for 4 Occurrences starting 09/09/2024 until 09/06/2025 End: 37-57-9876Ctyvystlc aminotransferase [Enzymatic activity/volume] in Serum or PlasmaASPARTATE AMINOTRANSFERASE/SGOT Lab Routine Encounter for medication monitoring Every 3 months for 4 Occurrences starting 10/10/2024 until 10/10/2025 [facility] Work Phone: Comment on above:Every 3 months for 4 Occurrences starting 10/10/2024 until 10/10/2025acteria identified in Urine by CultureUrine [facility] End: 09-06-2025 reactive protein [Mass/volume] in Serum or PlasmaC-REACTIVE PROTEIN Lab Routine Inflammatory arthritis Every 3 months for 4 Occurrences starting 09/09/2024 until 09/06/2025[facility] ClinicComment on above:Every 3 months for 4 Occurrences starting 09/09/2024 until 09/06/2025 End: 10-10-2025 reactive protein [Mass/volume] in Serum or PlasmaC-REACTIVE PROTEIN Lab Routine Encounter for medication monitoring Every 3 months for 4 Occurrencesstarting 10/10/2024 until 10/10/2025[facility] CenterComment on above: Every 3 months for 4 Occurrences starting 10/10/2024 until 10/10/2025 End: 17-14-4338SHY panel - Blood by Automated countCOMPLETE BLOOD COUNT Lab Routine Inflammatory arthritis Every 3 months for 4 Occurrences starting until 09/06/2025[facility] ClinicComment on above:Every 3 months for 4 Occurrences starting 09/09/2024 until 09/06/2025 End: 91-28-5306FBF panel - Blood by Automated countCOMPLETE BLOOD COUNT Lab Routine Encounter for medication monitoring Every 3 months for 4 Occurrences starting 10/10/2024 until 10/10/2025[facility] ClinicComment on above:Every 3 months for 4 Occurrences starting 10/10/2024 until 10/10/2025 End: 32-35-5021Zfvliplhged sedimentation rateSEDIMENTATION RATE, WESTERGREN Lab Routine Inflammatory arthritis Every 3 months for 4 Occurrences starting 09/09/2024 until 09/06/2025[facility] ClinicComment on above:Every 3 months for 4 Occurrences starting 09/09/2024 until 09/06/2025 End: 71-67-9310Neokprkbhpc sedimentation rateSEDIMENTATION RATE, WESTERGREN Lab Routine Encounter for medication monitoring Every 3 months for 4Occurrences starting 10/10/2024 until 10/10/2025[facility] ClinicComment on above:Every 3 months for 4 Occurrences starting 10/10/2024 until 10/10/2025Insulin [Units/volume] in Serum or PlasmaCleveland Clinic Children'S Hospital For RehabilitationInsulin [Units/volume] in Serum or PlasmaCleveland Clinic Children'S Hospital [facility] Rehabilitation End: 08-86-1829QO Brain WO and W contrast IVMRI BRAIN WO/W IVCON Radiology Routine Benign neoplasm of meninges (HCC) 1 Occurrences starting 03/02/2025 until 04/01/2026[facility] Work Phone: Comment on above:1 Occurrences starting 03/02/2025 until 04/01/2026MR Skull base WO and W contrast IVMRI SKULL BASE WO/W IVCON Radiology Routine Benign neoplasm of meninges (HCC) 01/29/2024 1:56 PM EDT [facility] Work Phone: patient EducationRib fracture or bruised rib - ED discharge [facility] Work Phone: [facility] Work Phone: STREPTOCOCCUS PNEUMONIA AB (IGG) (23 SEROTYPES) STREPTOCOCCUS PNEUMONIA AB (IGG) (23 SEROTYPES) Lab Routine Recurrent sinus infections Ordered: 07/10/2025[facility] HealthcareComment on above:Ordered: [address] [place] [address] Immunizations Immunization DateImmunizationNotesCare PsvhngdxEudxsvqg70-79-9123dczeqwkzc virus vaccine, unspecified formulationPa 2 Work Phone: [address] HospitalXcvtcb50-90-1001Kplfsxhcw, injectable, Madin Fatimah Canine Kidney, preservative free, quadrivalentKirae Polanco REGULATOR OPERATOR Work Phone: [facility] CenterQwjwszupdi78-65-3698pachdmfmx virus vaccine, unspecified formulationFahad Corey MD Work Phone: [facility] [address] HospitalPtfpmy95-44-3063phhtmdany, injectable, quadrivalent, preservative freeEstevan Polanco REGULATOR OPERATOR Work Phone: [facility] CenterZqdcpnuscg44-27-8403xrheugh and diphtheria toxoids, adsorbed, preservative free, for adult use (5 Lf of tetanus toxoid and 2 Lf of diphtheria toxoid)Estevan Polanco REGULATOR OPERATOR Work Phone: [facility] CenterNvcmxuyxma56-97-4838Ivqodtj -40 Christiano Bowles Other [employer] Other 07-847272-30-2063Aouktpe -40 Christiano Bowles Other [employer] Other 05-051359-58-2234IGPRL-65 mRNA Comrk (Pfizer)MD Jesus Gonzalez Work Phone: [facility]04-21-2021COVID-19 mRNA Comrk (Pfizer)MD Jesus Gonzalez Work Phone: [facility]03-04-2021Kenalog -40 Christiano Bowles Other [employer] Other [id number], injectable, Madin Fatimah Canine Kidney, preservative free, quadrivalentEstevan Polanco REGULATOR OPERATOR Work Phone: noHCA Midwest DivisionGwvydjthci88-27-1781Pyx-LnzHrlvqbwy [place] Other [employer] Other 06057600-41-4338Zby-YxlOhjlqoxt [place] Other [employer] Other 07-04529797-06-4242Nhc-NsiAyavfzjf [place] Other [employer] Other 05-803554-01-7121Vzdviaq -40 mgJennifer [place] Other [employer] Other 05751752-21-3753kbpmpxuks A vaccine, adult dosageEstevan Jairon REGULATOR OPERATOR Work Phone: ClickabilityHCA Midwest DivisionCugezhxzay84-17-5846Ajypmoyzsv InjectionJennifer Jelena Other [employer] Other 11043846-24-1826Tvqcxxsvze InjectionJennifer Jelena Other [employer] Other 10-810081-61-6966Zqxdbvr -40 mgJennifer [place] Other [employer] Other 10276994-20-7353wxrkzwzaa virus vaccine, unspecified formulationEstevan Polanco REGULATOR OPERATOR Work Phone: noHCA [facility] DivisionZxothtusnr60-04-0561Ztcmmdf -40 mgJennifer [place] Other [employer] Other 03614963-33-5485Fenpqpp -40 mgJennifer Jelena Other [employer] Other 01756627-91-9755oxxhkypbz, injectable, quadrivalent, contains preservativeBeti Bowles Other [facility]12-17-2014influenza, injectable, quadrivalent, preservative Frederick Jairon REGULATOR OPERATOR Work Phone: NOHCA [facility] Division Payers DatePayer CategoryPayerPolicy [id number] (Managed Care) [id number] [id number] [id number] [id number] 2024Unknown2010Medicare MEDICARE MEDICARE A AND B [id number] 2009-[facility] [phone] [address] [address] [place] [address] [id number] 2010Medicare [id number] 2..0.1.808049.3.579.[id number] 2.16.840.1.366533.3.57[id number] 2.160.1.944598.3.579.[id number] 2.840.1.088647.3.579.2.21212-53-9593Molokuz002561406 2.840.1.179735.3.579.2.66040-61-7667Dzfzjbg899824327 2.0.1.235758.3.579.2.42113-26-2470Pamirdb035824264 2.0.1.090010.3.579.2.287 [id number] 2.0.1.373320.3.579.2.50889-37-6606Zefpdww90080144 2.840.1.786423.3.579.2.58219-39-7421Tpmxxsa91615869 2.0.1.001484.3.579.2.667899-00-0067Uxwmjcq75884066 2.0.1.047425.3.579.2.353925-80-7097Qiiikzi33788265 2..1.574673.3.579.2.569837-26-8636Zsnlzkq26673192 2..1.652276.3.579.2.549250-79-4701Lfdrltm5954212 2..1.536339.3.579.2.1259 [id number] 2.840.1.322012.19 [id number] [id number]/HFA/FAP VgbdazX382690 d2o0w494-31m3-1659-[id number] 2.840.1.575999.3.579.2.027Oejgeow10992164 2.16.840.1.061906.3.579.2.531 Htbekqv88375364 2.16.840.1.281076.3.579.2.437Dqixbot73372950 2.16.840.1.700164.3.579.2.482Vibannh43713058 2.16.840.1.586234.3.579.2.531 Qzhiyhl33218255 2.16.840.1.230856.3.579.2.830Rxeuakc57586270 2.16.840.1.040656.3.579.2.141Zqpawox76854080 2.16.840.1.724886.3.579.2.531 Uthvpui67071275 2.16840.1.354668.3.579.2.829Jyovsqy28868986 2.16.840.1.730420.3.579.2.774Ebdelsp04659847 2.16.840.1.734619.3.579.2.531 Vbkdyox58341494 2.16.840.1.339717.3.579.2.687Ljcuhsr02923379 2.16840.1.424164.3.579.2.674Wqyolva14114884 2.840.1.809729.3.579.2.531 Iohfeop98750869 2.840.1.503632.3.579.2.531 Social History DateTypeDetailFacilityStart: 03-04-2021 End: 74-49-1504Qffefvl smoking status NHISEx-smokerAvita Health System [facility] Hospitaltart: 03-04-2021 End: 71-48-7637Oonthjt use and exposureSmokeless tobacco non-userAvita Health System Bucyrus Hospitaltart: 64-28-7457Lkg Assigned At BirthFemaleCSt. Charles Hospital: 01-10-2022 End: 20-17-2843Yggfczcb to SARS-CoV-2 (event)Not sureAvita Health System Bucyrus Hospitaltart: 09-22-2022 End: 89-58-3070Vog Assigned At BirthWilson Street HospitalHistory of tobacco use Current smokerAvita Health System Bucyrus Hospitaltart: 09-22-2022 End: 15-94-5242Xbhhuwn of Social functionAvita Health System Bucyrus Hospitaltart: 08-15-2012 End: 51-55-3935Nmtku Depression Screening Ghufcfdgpr7Pzxdvibsm ClinicStart: 59-78-8892Upylou identityIdentifies as female gender (finding)[facility] Start: 93-69-9480Qohzcu orientationHeterosexual (finding)[facility]: 06-01-2023 End: 49-14-4537Yupjwnf intakeCurrent drinker of alcohol (finding)[address] HospitalHistory of tobacco useCigarette SmokerJORDAN [facility] HealthcareStart: 03-25-2023 Tobacco Comment>10 years since last smokedJORDAN VALLEY [facility] HealthcareStart: 03-25-2023 Alcohol Commentcaffeine: stackersJORDAN VALLEY [facility] HealthcareStart: 46-43-9471Ecu assigned at birthNot on fileJORDAN [facility]LEY [facility] HealthcareStart: 09-17-2024 End: 48-55-3538HzaOsmrmg (finding)[facility]: 13-23-7971Zcbdcdb CommentStarted 1994. Quit 2010. 1 ppdAvita Health System Bucyrus Hospitaltart: 85-05-8005Ildfvbs Comment3-4 drinks on occasionAvita Health System Bucyrus Hospitaltart: 03-13-2025 End: 46-16-7249Mutpmrr smoking status NHISUnknown if ever smokedCatskill Regional Medical Center DistrictStart: 85-45-4431Cyidfpi intakeAlcohol Use [facility]: 06-05-2025 End: 36-67-6263Zfjpizn smoking status NHISNever smoked tobacco (finding) [facility] Centertart: 17-68-3947Qfdoiik intake (observable entity)Alcohol Use [facility] [place]Start: 06-27-2025 Tobacco use and exposureSmoking Tobacco Use [facility]NE[facility]ATED: Highlighted [facility] HospitalNEGATED: Highlighted rowStart: 47-45-7680Sfbxuae of tobacco useEx-cigarette smokerMckee Medical CenterNEGATED: Highlighted rowStart: 44-70-5407Ukkbjc-related BehaviorCaffeine Use DetailsMckee Medical Center Medical Equipment Procedure CodeEquipment CodeEquipment Original TextEquipment IdentifierDates Start: 31-93-5744Ezjzy Duramatrix-Onlay Plus Collagen 2x2in Dural Regeneration Membrane - [id number]: 96-21-8113Unmgv Bone 8 Hole Profile - [id number]: 41-51-4525Rmcgl 3d Large Box Low Profile Titanium Bone 2x2 Hole 1.5mm Screw - [id number]: 05-32-9459Ravwt Low Profile Titanium 12mm Bone 2 Hole Bar 1.5mm Screw Nonsterile - [id number]_impStart: 86-75-2718Usern 10mm Medium Titanium Winn Hole Low Profile Tab 1.5mm Screws - [id number]: 81-02-0061Pvnft Bone [place] Neuro 3 4mm 1.5mm Self Drill Axial Stability Latex - [id number]: 79-18-3941Ubipcvnvk Neuro Axs Neuro Screw Disc Pre-Loaded 1.5mm X [id number]_imp Start: 02-20-2025 Clinical Notes 03-04-2021 to 07-10-2025 Note Date & OxdmTqivVrcdkgbb27-51-8132 History of Present illness Narrative* Sean Greene MD - 07/10/2025 2:20 PM EDT Kourtney Novak is a very pleasant 49 y.o. year old female who comes to the office today with the chief complaint of fatigue. She sees the nickel plater because she was having tendinitis. 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 She was placed on plaquenil which was helpful for her lungs. She saw a offal trimmer and was told she might have SLE. She does not feel that she has allergies as a cause of hersymptoms. She has had fatigue for about 12 months. She will often fall asleep. She has MAREK that is n ot treated. She has a history of recurrent [...] accident and she understands. documented in this encounterParkland Health CenterOijlntzimn00-34-3577 Evaluation note* Type Assessment Date assessment Body mass index [BMI] 40.0-44.9, adult [facility] Work Phone: 1(365) 713-564510-14-2025 History of Present illness Narrative* Encounter Date Complaint History Of Prese nt Illness quinton doyle [facility] Work Phone: 1(162) 704-519510-14-2025 Instructions* Date Instruction Additional Infor mation Giving encouragement to exercise Related to Body mass index [BMI] 40.0-44.9, adult Dietary management e ducation, guidance, and counseling Related to Body mass index [BMI] 40.0-44.9, adult [facility] Work Phone: 1(339) 957-996610-09-2025 NoteHNO ID: [id number] Author: ZULEMA WOOD MD Service: ? Author [...] midline. There are no (more content not included)...[facility]10-06-2025 Radiology Diagnostic study [facility] [place] [address] [place] [address] CT Scan Report Signed Patient: Kourtney Novak MR#: [id number] : 1975 Acct:[id number] Age/Sex: 49 / F ADM Date: 5 Loc: CT Room: Type: [facility] Attending Dr: Jesus Gonzalez MD Copies [...] Hoffmann M.D. 06/19/2025 11:19 PM Dictation Location: RADIO-PC-29 Transcribed By: GRACIE 06/19/252318 Dictated By: Lincoln Hoffmann MD 06/19/252314 Signed By: 06/19/252318 [facility] Work Phone: 1(583) 479-1622228076-68-1464 Radiology Diagnostic study noteC[facility]AND [facility] [place] [address] [place] [address] Ultrasound Report Signed Patient: Kourtney Novak MR#: [id number] : 1975 Acct:[id number] Age/Sex: 49 / F ADM Date: 5 Loc: Room: Type: [facility] Attending Dr: Jesus Gonzalez MD Ordering [...] Gray M.D. 06/13/2025 10:29 PM Dictation Location: [place] [address] Tech: Tana Chahal Transcribed By: GRACIE 06/13/252228 Dictated By: George Gray DO 06/13/252225 Signed By: 06/13/252228 [facility]09-23-2025 Telephone encounter Note* Telephone Encounter - Lamar [...] deformities. No distinct acute displaced rib fracture. [facility] Acnmlnyavy88-13-0627 Miscellaneous Notes* Telephone Encounter - Lamar Dorsey [...] acute displaced rib fracture. documented in this encounterParkland Health CenterLiisfysnpb43-24-7453 History of Present illness Narrative* Lamar Dorsey NP - 06/05/2025 5:40 PM EDT Images from the original note were not included. [address] , [address] [facility], [address] P: [phone] F: [phone] [facility] Historian of [facility]: patient Kourtney Novak is a 49 y.o. [...] fracture. See telephone encounter documented in this encounterParkland Health CenterUbrbikmooi50-94-5010 Evaluation note* Diagnosis Onset Date Resolution Status Admit Date Tear of right supraspinatus tendon acuteSeptember 2024 1:21pm [facility] Work Phone: 1(101) 481-705709-16-2025 Evaluation note* Diagnosis Onset Date Resolution Status Admit Date Tear of right supraspinatus tendon acuteSeptember 2024 1:21pmOsteochondrosis of lunate of right wristacute July 12, 2025 3:22pmRight wrist painacuteOct2024 3:22pm [facility] Work Phone: 1(920) 107-599709-10-2025 Evaluation note* Type Assessment Date assessment Encounter for Depo-Provera contr aception [facility] Work Phone: [phone] 533-2750094292-41-3832 History of Present illness Narrative* Yola Wilburn NP - 05/23/2025 1:20 PM EDT Images from the original note were not included. [address] , [address] [facility], [address] P: [phone] F: [phone] HPI Historian of HPI: patient Kourtney Novak [...] (Toradol) injection 60 mg documented in this encounterParkland Health CenterZqxvdpspiy27-01-5526 Telephone encounter Note* Telephone Encounter - Gifty [...] A DAY NEEDED Pharmacy [facility]: [facility]09-04-2025 Miscellaneous Notes* Telephone Encounter - Gifty [...] [facility] [address] [facility] [address] [facility]08-[facility] Telephone encounter Note * Telephone Encounter - La Nena Waterman LPN - 04/26/2025 9:34 AM EDT Eye exam was completed and received 12/20/2024. [facility]08-13-2025 Miscellaneous Notes* Telephone Encounter - La [...] A DAY Authorizing Provider: ZULEMA WOOD MD * Telephone Encounter - Alisha [...] 365 Days Visit Type Date Time Department [facility] 06/22/2025 2:20 PM [facility] Last Ophthalmology Check for Plaquenil [...] Last eye exam 12/20/[address] [facility]08-13-2025 Telephone encounter Note * Telephone Encounter - Zulema Wood MD - 04/26/2025 8:38 AM EDT She needs an eye exam if she wants future refills. The following approved medication requests have been transmitted electronically. Requested Prescriptions Signed Prescriptions Disp Refills hydrOXYchloroQUINE (PLAQUENIL) 200 mg tablet 60 tablet 2 Sig: TAKE 1 TABLET BY MOUTH TWICE A DAY Authorizing Provider: ZULEMA WOOD MD [facility]08-12-2025 Telephone encounter Note* Telephone Encounter - [...] Visit Type Date Time Department [facility] 06/22/2025 2:20 PM [facility] Last Ophthalmology Check for Plaquenil [...] Encounter for medication monitoring C-REACTIVE PROTEIN [SQCRP] 11/15 Every 3 months 10/10/25 10/10/24 02/14/25 Auth. provider: Zulema Wood MD Assoc. diagnoses: Encounter for medication monitoring Open Future (Single Instance) Lab Orders None Last eye exam 12/20/[address] [facility]07-30-2025 History of Present illness Narrative* Rachele Fenton, MARILEE.RELASTER - 04/12/2025 7:00 AM EDT Headache Center [...] visit. Either the patient or their legal publications sales representative has been informed of the [...] Prescription for 10 mg nortriptyline sent to [facility], 2-month supply provided to accommodatetapering schedule. - [...] these with the patient: yes Rachele Fenton APRN.RELASTER HEADACHE SCORES: 02/01/2024 12/30/2024 04/10/2025 Headache Questions [...] soft tissue component identified in the orbit. Company Doctor: [employer] Transcribe Date/Time: Jan 31 2024 3:33P Dictated by : NATIVIDAD PRIEST MD This examination was interpreted and the report reviewed and electronically signed by: NATIVIDAD PRIETS MD on Jan 31 2024 3:37PM EST [...] articulation, and clear,coherent, and relevant. Short and terminal clerk memory, cognition and general fund of knowledge [...] Virtual Visit 20 minutes Recording using ambient AI software for draft documentation of the visit was discussed with the patient/authorized publications sales representative; all questions welcomed and answered. Patient/authorized publications sales representative agreed to proceed Rachele Fenton APRN.CNP Headache Section [facility] April 12, [address] Hospital07-30-2025 NoteHNO ID: [id number] Author: RACHELE FENTON APRN.CNP Service: ? Author [...] visit. Either the patient or their legal publications sales representative has been informed of the [...] Prescription for 10 mg nortriptyline sent to [facility], 2-month supply provided to accommodate tapering schedule. [...] by mouth twice daily. (more content not included)...[facility]07-16-2025 History of Present illness Narrative* Erik Pineda MD - 03/29/2025 10:30 AM EDT Images from the original note were not included. SECTION OF SKULL BASE SURGERY MINIMALLY INVASIVE CRANIAL BASE & PITUITARY SURGERY PROGRAM [facility] [place], [facility] TELEMEDICINE FOLLOW-UP VISIT This is a virtual visit. It required patient-provider interaction for the medical decision making as documented below. Kourtney Novak has consented for this telemedicine encounter. I have communicated my name and active licensure. The patient's identity and physical location were verified at the time of this visit. Either the patient or their legal publications sales representative has been informed of the risks and benefits of -- and alternatives to -- treatment through a remote evaluation and consents to proceed with the evaluation remotely. CC: Jesus Gonzalez MD, Stephanie Moy, JOSSIE Assessment: In summary, Kourtney Novak [...] meningioma, WHO grade [address] Hospital07-16-2025 NoteHNO ID: [id number] Author: ERIK PINEDA MD Service: ? Author Type: Physician Type: Progress Notes Filed: 03/29/2025 10:48 Note Text: SECTION OF SKULL BASE SURGERY MINIMALLY INVASIVE CRANIAL BASE AND PITUITARY SURGERY PROGRAM [facility] [place] TELEMEDICINE FOLLOW-UP VISIT This is a virtual visit. It required patient-provider interaction for the medical decision making as documented below. Kourtney Novak has consented for this telemedicine encounter. I have communicated my name and active licensure. The patient's identity and physical location were verified at the time of this visit. Either the patient or their legal publications sales representative has been informed of the [...] (SYNTHROID) 50 mcg tablet (more content not included)...[facility]07-14-2025 Telephone encounter Note* Telephone Encounter - Chana Rose - 03/27/2025 9:35 AM EDT Hospital Discharge Summary faxed to Dr. Hoy. Saenz [facility]07-14-2025 Miscellaneous Notes* Telephone Encounter - Chana Rose - 03/27/2025 9:35 AM EDT Hospital Discharge Summary faxed to Dr. Hoy. Saenz [facility] Evaluation note* Diagnosis Onset Date Resolution Status Admit Date Osteochondrosis of lunate of right wrist acuteJuly 2024 3:55pmRight wrist painacuteJuly 2024 3:55pm [facility] Work Phone: 1(407) 235-400907-09-2025 Evaluation note* Diagnosis Onset Date Resolution Status Admit Date Osteochondrosis of lunate of right wrist acuteJuly 2024 3:55pmRight wrist painacuteJuly 2024 3:55pmTear of right supraspinatus tendonacuteSeptember 2024 1:21pm [facility] Work Phone: [phone] Telephone encounter Note* Telephone Encounter - Izabela Patton MD - 03/20/2025 10:26 AM EDT Picture uploaded in [employer] reviewed. Wound is healing appropriately. Will complete the 10 days dose of Bactrim. Prescribed accordingly. [facility]07-07-2025 Miscellaneous Notes* Telephone Encounter - Izabela Patton MD - 03/20/2025 10:26 AM EDT Picture uploaded in [employer] reviewed. Wound is healing appropriately. Will complete the 10 days dose of Bactrim. Prescribed accordingly. [facility]25 NoteHNO ID: [id number] Author: IZABELA PATTON MD Service: ? Author Type: Fellow Type: Progress Notes Filed: 03/15/2025 12:44 Note Text: SECTION OF SKULL BASE SURGERY MINIMALLY INVASIVE CRANIAL BASE AND PITUITARY SURGERY PROGRAM [facility] [place] CC: Patient Care Team: Jesus Gonzalez [...] changes. PLAN: - Send a picture in [facility] on Thursday. - Bactrim DS x 5 [...] elevates symmetrically and uvul (more content not included)...[facility]07-02-2025 History of Present illness Narrative* Izabela Patton MD - 03/15/2025 12:31 PM EDT Images from the original note were not included. SECTION OF SKULL BASE SURGERY MINIMALLY INVASIVE CRANIAL BASE & PITUITARY SURGERY PROGRAM [facility] CC: Patient Care Team: Jesus Gonzalez [...] changes. PLAN: - Send a picture in [employer] on Thursday. - Bactrim DS x [...] No Does patient want to see a Networking Specialist? No (yes to any of above refer patient to schedulers for dietitian appointment) ) Does patient have any new or increased numbness or tingling of extremities? No Is patient interested in fertility information? No Does patient need any prescription refills? No Does patient have an advanced directive in place? No, Patient referred to [facility] Telephone encounter Note * Telephone Encounter - Izabela Patton MD - 03/15/2025 12:17 PM EDT Ordered Bactrim. [facility]07-02-2025 Miscellaneous Notes* Telephone Encounter - Izabela Patton MD - 03/15/2025 12:17 PM EDT Ordered Bactrim. [facility]07-[facility]-2025 NoteHNO ID: [id number] Author: BESS DO MA Service: ? Author Type: Audit Intern Type: Progress Notes Filed: 03/15/2025 12:44 Note Text: Additional intake questions: Has the patient had fever, nausea, vomiting, diarrhea, constipation, fatigue for > 1 week? No Does the patient have a decreased appetite? No Does patient want to see a Networking Specialist? No (yes to any of above refer patient to schedulers for dietitian appointment) ) Does patient have any new or increased numbness or tingling of extremities? No Is patient interested in fertility information? No Does patient need any prescription refills? No Does patient have an advanced directive in place? No, Patient referred to [facility] Electronically Signed By: Bess Do [facility] 03-13-2025 Telephone encounter Note* Telephone Encounter - [...] A DAY NEEDED Pharmacy Name: [facility]06-30-2025 Miscellaneous Notes* Telephone Encounter - Gifty Martinez - 03/13/2025 3:09 PM EDT Physician: Eliceo Call from pharmacy requesting refill. Please E-Scribe Last OV: 01/06/2025 with Eliceo Subramanian OV: Not Scheduled. Requested Prescriptions Pending Prescriptions Disp Refills methocarbamol (ROBAXIN) 500 mg tablet [Pharmacy Med Name: METHOCARBAMOL 500 MG TABLET] 45 tablet 2 Sig: TAKE 1 TABLET BY MOUTH TWICE A DAY NEEDED Pharmacy Name: [facility] Evaluation note* Type Assessment Date assessment Encounter for Depo-Provera contr aception [facility] Work Phone: [phone] Telephone encounter Note* Telephone Encounter - Shakila Phillips RN - 03/08/2025 4:18 PM EDT Images from the original note were not included. [facility]06-25-2025 Miscellaneous Notes* Telephone Encounter - Shakila Phillips RN - 03/08/2025 4:18 PM EDT Images from the original note were not included. documented in [facility]06-23[facility]2025 Telephone encounter Note * Telephone Encounter - Zulema Wood MD - 03/06/2025 12:40 PM EDT The following approved medication requests have been transmitted electronically. Requested Prescriptions Pending Prescriptions Disp Refills DULoxetine (CYMBALTA) 60 mg capsule [Pharmacy Med Name: DULOXETINE HCL DR 60 MG CAP] 90 capsule 2 Sig: TAKE 1 CAPSULE BY MOUTH EVERY DAY Zulema Wood MD [facility]06-23-2025 Miscellaneous Notes* Telephone Encounter - Zulema Wood MD - 03/06/2025 12:40 PM EDT The following approved medication requests have been transmitted electronically. Requested Prescriptions Pending Prescriptions Disp Refills DULoxetine (CYMBALTA) 60 mg capsule [Pharmacy Med Name: DULOXETINE HCL DR 60 MG CAP] 90 capsule 2 Sig: TAKE 1 CAPSULE BY MOUTH EVERY DAY Zulema Wood MD * Telephone Encounter - Chantal ChanRAJENDRA - [...] Days Visit Type Date Time Department [facility] MED[facility] 06/22/2025 2:20 PM [facility] Last Ophthalmology Check for Plaquenil [...] meningioma (HCC), Preop testing documented in [facility]06-23-2025 NoteHNO ID: [id number] Author: SHAKILA PHILLIPS RN Service: ? Author [...] request and reach out to her through [employer] with a reply. Shakila Phillips RN, [facility] CoordinatorC[facility]06[facility] History of Present illness Narrative* Shakila Phillips, [facility] - 03/06/2025 12:25 PM EDT Images from [...] request and reach out to her through [employer] with a reply. Shakila Phillips RN, [employer] * Britton Tamez LPN - 03/06/2025 10:07 AM EDT Additional intake questions: Has the patient had fever, nausea, vomiting, diarrhea, constipation, fatigue for > 1 week? No Does the patient have a decreased appetite? No Does patient want to see a Networking Specialist? No (yes to any of above refer patient to schedulers for dietitian appointment) ) Does patient have any new or increased numbness or tingling of extremities? No Is patient interested in fertility information? NA Does patient need any prescription refills? No Does patient have an advanced directive in place? Yes, copies are in [facility] documented in [facility]06-23-2025 Telephone encounter Note * Telephone Encounter [...] Visit Type Date Time Department [facility] MEDICAL 06/22/2025 2:20 PM [facility] Last Ophthalmology Check for Plaquenil [...] months 09/06/25 09/09/24 02/14/25 Auth. provider: Zulema Wodo MD Assoc. diagnoses: Inflammatory arthritis ASPARTATE AMINOTRANSFERASE/SGOT [...] Assoc. diagnoses: Intracranial meningioma (HCC), Preop testing [facility]06-23-2025 NoteHNO ID: [id number] Author: BRITTON TAMEZ LPN Service: ? Author Type: LICENSED NURSE Type: Progress Notes Filed: 03/06/2025 14:25 Note Text: Additional intake questions: Has the patient had fever, nausea, vomiting, diarrhea, constipation, fatigue for > 1 week? No Does the patient have a decreased appetite? No Does patient want to see a Networking Specialist? No (yes to any of above refer patient to schedulers for dietitian appointment) ) Does patient have any new or increased numbness or tingling of extremities? No Is patient interested in fertility information? NA Does patient need any prescription refills? No Does patient have an advanced directive in place? Yes, copies are in Epic Electronically Signed By: [facility]BASTIAN [facility] History of Present illness Narrative* Stephanie Moy APRN.RELASTER - 03/02/2025 1:00 PM EDT Images from the original note were not included. [facility] TELE-HEALTH VISIT PROGRESS NOTE This is a virtual visit using [employer] video visit. It required patient-provider interaction for themedical decision making as documented below. I have communicated my name and active licensure. The patient's identity and physical location wereverified at the time of this visit. Either the patient or their legal publications sales representative has been informed of the [...] which included preparing to see the patient, pmje-va-doay patient care, completing clinical documentation, obtaining and/or reviewing separately obtained history, performing a medically appropriate examination, counseling and educating the pat ient/family/caregiver, ordering medications, tests, or procedures, communicating with other HCPs (not separately reported), independently interpreting results (not separately reported), communicatingresults to the patient/family/caregiver, and care coordination (not separately reported). Stephanie Moy APRN.RELASTER Certified Nurse Practitioner cc: Erik Pineda MD [...] resection. No residual mass or pathologic enhancement. Company Doctor: PSCB Transcribe Date/Time: Feb 21 2025 11:17A [...] 2025 10:13 AM Gross examination performed at [facility], [address] [place] [address] Clinical History Pre-op diagnosis: Intracranial meningioma (HCC) [D32.0] Preop testing [Z01.818] Performing Lab Diagnostic interpretation performed at: [facility], [address] [place] [address], [facility] [place] [address] CLIA# [id number] Dental Treatment Coordinator: Charan Ryan MD Disclaimer Laboratory Developed Test (LDT) Disclaimer: Performance characteristics of immunohistochemical, immunofluorescent, and chromogenic in-situ hybridization tests have been determined by the performing laboratory within [facility]'s Andrzej Mckeon Pathology and Laboratory Medicine Department ([facility], [facility][1], [facility], [facility], [facility], [facility], or [facility]) in a manner consistent with CLIA requirements. One or more of these tests may not have been cleared or approved by the FDA. [facility] is regulated under CLIA as qualified to perform high- complexity testing. These tests are used for clinical purposes. These should not be regarded asinvestigational or for research. Positive and negative controls stain appropriately. KPS: 90 [address] [facility]06-19-2025 NoteHNO ID: [id number] Author: STEPHANIE MOY APRN.CNP Service: ? Author Type: Nurse Practitioner Type: Progress Notes Filed: 03/02/2025 13:22 Note Text: [facility] TELE-HEALTH VISIT PROGRESS NOTE This is a virtual visit using [employer] video visit. It required patient-provider interaction for the medical decision making as documented below. I have communicated my name and active licensure. The patient's identity and physical location were verified at the time of this visit. Either the patient or their legal publications sales representative has been informed of the [...] which included preparing to see the patient, riew-nv-xici patient care, completing clinical documentation, obtaining and/or reviewing separately obtained history, performing a medically appropriate examination, counseling and educating the patient/family/caregiver, ordering medications, tests, or procedures, communicating with other HCPs (not separately reported), independently interpreting results (not separately reported), communicating results to the patient/family/caregiver, and care coordination (not separately reported). Stephanie Moy APRN.RELASTER Certified Nurse Practitioner cc: Erik Pineda MD [...] Face symmetric with smile (more content not included)...[facility]06-16-2025 Telephone encounter Note* Telephone Encounter - Zulema [...] EVERY DAY Authorizing Provider: ZULEMA WOOD MD [facility]06-16-2025 Miscellaneous Notes* Telephone Encounter - Zulema [...] Days Visit Type Date Time Department [facility] MED[facility] 06/22/2025 2:20 PM [facility] Last Ophthalmology Check for Plaquenil [...] meningioma (HCC), Preop testing [facility]06-13[facility]2025 Telephone encounter Note * Telephone Encounter [...] Visit Type Date Time Department [facility] MEDICAL 06/22/2025 2:20 PM [facility] Last Ophthalmology Check for Plaquenil [...] Assoc. diagnoses: Intracranial meningioma (HCC), Preop testing [facility]06-12-2025 Telephone encounter Note* Telephone Encounter - [...] out for questions/ concerns/updates. Shakila Phillips RN, As[employer] T [facility]06-12-2025 Telephone encounter Note* Telephone Encounter - Shakila Phillips RN - 02/23/2025 11:24 AM EDT General Call Caller : Pt Contact Reason for Call : Pt has question regards oxycodone meds. Patient requesting return call ? Yes [facility]06-12-2025 Miscellaneous Notes* Telephone Encounter - Shakila Phillips [...] to reach out for questions/ concerns/updates. Shakila Shidiac RN, [employer] * Telephone Encounter - Shakila Phillips RN [...] return call ? Yes documented in [facility] [address] [facility]06-12-2025 Telephone encounter Note * Telephone Encounter - Kaci Maya - 02/23/2025 9:46 AM EDT General Call Caller : Pt Contact Reason for Call : Pt has question regards oxycodone meds. Patient requesting return call ? Yes [facility]06-11-2025 NoteHNO ID: [id number] Author: DAYANNA CLEMENTE ? Service: Pharmacy Author Type: Bulk Sealer Operator Type: Plan of Care Filed: 02/22/2025 12:08 Note Text: PHARMACY BEDSIDE DELIVERY SERVICE Patient Name: Kourtney Novak The marked outpatient medications were Filled at: [facility] and delivered to the patient's [...] glycopyrrolate 1 mg tablet Commonly known as: ROBINDIEUDONNE hydrOXYchloroQUINE 200 mg tablet Commonly known as: [...] Dayanna Clemente PAGER: February 22, 2025 10:56 [facility]06-11-2025 NoteHNO ID: [id number] Author: DAYANNA CLEMENTE, Mookie Service: Pharmacy Author Type: Bulk Sealer Operator Type: Plan of Care Filed: 02/22/2025 10:56 Note Text: Insurance investigation completed Patient has active prescription insurance: Yes - Patient's insurance is in-network with [facility] Insurance loaded into [employer]: Yes Test claim was completed to verify insurance is active: Successful Any questions, please reach out to your medication access rn.[facility]06-10-2025 NoteHNO ID: [id number] Author: HERSON OZUNA RN Service: Nursing Author Type: Registered Nurse Type: Progress Notes Filed: 02/21/2025 20:22 Note Text: At 16:15 PM, Received report from [facility] [place]. At 17:00 PM, Patient transferred to the nursing division.[facility]06-10-2025 NoteHNO ID: [id number] Author: JOVANNY CHRISTENSEN RN Service: Care Management Author Type: Registered Nurse Type: Care Mgt Initial Assessment Filed: 02/21/2025 15:16 Note Text: CARE MANAGEMENT: ASSESSMENT AND DISCHARGE PLAN SERVICE DATE: February 21, 2025 SERVICE TIME: 3:14 PM PCP: Jesus Gonzalez MD Primary Contact: Extended Emergency Contact Information Primary Emergency Contact: Christiano Saini Address: [address] [place] [id number] [facility] Mobile Relation: Son Secondary Emergency Contact: Laith Saini Address: [address] [place] [id number] [facility] Mobile Relation: Son Admission Status: Inpatient Insurance Provider: [employer] HMO Discharge Planning requested by: Per Department Practice Potential Transition Plans Home Advance Directives Current Advance Directive: None [place] of Choice Explained: [place] of Choice Given: No Reason Not Given: [...] Novak DATE: February 21, 2025 TIME: 3:14 [facility]06-10-2025 NoteHNO ID: [id number] Author: GLORIA PEÑALOZA PA-C Service: Neurosurgery Author Type: Physician Balloon Pilot Type: Progress Notes Filed: 02/21/2025 12:40 Note Text: SERVICE DATE: 02/21/2025 SERVICE TIME: 8:19 AM NEUROSURGERY SKULL BASE INPATIENT PROGRESS NOTE Please [place] [phone] for questions/concerns about this patient from 3PM [...] Non-tender NEUROLOGY: Motor: UE BICEPS TRICEPS DELTS Vending Route Driver HI R 5/5 5/5 5/5 5/5 5/5 L 5/5 5/5 5/5 5/5 5/5 LE Hip Flex Knee Flex Knee Extend Plantarflex Dorsiflex EHL R 5/ 5/5 5/5 5/5 5/5 5/5 L 5/5 [...] 18 Gauge 1 day Peripheral 02/20/25 1245 [facility] Short Right Hand 18 Gauge <1 day Drain Duration Indwelling Urinary Catheter 02/20/25 1301 [facility] Nieves 16 Fr <1 day LABS: Na: Recent Labs 02/21/25 0437 02/20/25 1143 NA 138 137 1. Out of bed and ambulating: No Needs PT or OT Evaluation: No 2. Central line present? No 3. Continued need for urinary catheter? D/C Urinary Catheter 4. Nutrition: PO- Yes. 5. Restraints No. 6. Last BM PLANNING OFFICIAL Assessment AND Plan Active Hospital Problems as [...] seizures 02/21/2025 - Pre (more content not included)...[facility]06-10-2025 NoteHNO ID: [id number] Author: ERIK PINEDA MD Service: Neurosurgery Author [...] Erik Pineda MD Date: 02/21/2025 Time: 9:02 [facility]06-09-2025 NoteHNO ID: [id number] Author: TWYLA COOLEY MD Service: Neurosurgery Author [...] Pineda Signature: Twyla Cooley MD PGY4, Neurosurgery [facility] On-call pager: [phone] Clinic [facility]06-09-2025 NoteHNO ID: [id number] Author: ZARA RAMACHANDRAN DO Service: ? Author [...] February 20, 2025 TIME: 2:16 PM CSN: [id number] Hospital06-09-2025 NoteHNO ID: [id number] Author: CLARISA GARZA MD Service: ? Author [...] Successful intubation technique: video laryngoscopy Devices used: MyVerse Endotracheal tube insertion site: oral Blade: Cora [...] February 20, 2025 TIME: 2:00 PM CSN: [id number] Hospital06-06-2025 Telephone encounter Note* Telephone Encounter - Shakila Phillips RN - 02/17/2025 3:53 PM EDT Spoke with the patient - we discusses signing the consent after she checks in for her surgery on Thursday02/20/25. [facility]06-06-2025 Miscellaneous Notes* Telephone Encounter - Shakila Phillips RN - 02/17/2025 3:53 PM EDT Spoke with the patient - we discusses signing the consent after she checks in for her surgery on Thursday02/20/25. documented [facility] [address] [facility]06-06-2025 Telephone encounter Note * Telephone Encounter - Shakila Phillips RN - 02/17/2025 3:49 PM EDT Called the patient for pre-op instructions. Questions pertaining to hospital stay and after hospital discharge instructions were addressed. Shewas made aware to touch base after she gets discharged home for review of hospital discharge instructions and confirming postop follow up appts. Shakila Phillips RN, Assembler Metal Furniture [facility]06-06-2025 Miscellaneous Notes* Telephone Encounter - Shakila Phillips RN - 02/17/2025 3:49 PM EDT Called the patient for pre-op instructions. Questions pertaining to hospital stay and after hospital discharge instructions were addressed. Shewas made aware to touch base after she gets discharged home for review of hospital discharge instructions and confirming postop follow up appts. Shakila Phillips RN, Assembler [employer] Furniture documented [facility]06-04-2025 History of Present illness Narrative* Erik Pineda MD - 02/15/2025 2:30 PM EDT SECTION OF SKULL BASE SURGERY MINIMALLY INVASIVE CRANIAL BASE & PITUITARY SURGERY PROGRAM [facility] [place] TELEMEDICINE FOLLOW-UP VISIT This is a virtual visit. It required patient-provider interaction for the medical decision making as documented below. Kourtney Novak has consented for this telemedicine encounter. I have communicated my name and active licensure. The patient's identity and physical location were verified at the time of this visit. Either the patient or their legal publications sales representative has been informed of the [...] week postoperatively. - Consent form sent via [employer], including consent for blood transfusion if necessary. - Patient understands and agrees with the treatment plan. I spent a total of 30 minutes on the date of the service which included preparing to see the patient, jtuw-cf-mqxe patient care, completing clinical documentation, performing a medically appropriate examination, and counseling and educating the patient/family/caregiver. Erik Pineda MD Subjective: Patient is accompanied by her son Christiano Oconnell is a 49-year-old female with a history [...] tissue mass extending into the of the marker machine or parapharyngeal spaces. The soft tissue planes of the, retropharyngeal, and prevertebral spaces are maintained. The visualized parotid glands are normal in appearance. Nasopharynx/Oropharynx: The nasopharynx and oropharynx are normal in appearance. 12/28/24 OPTH Exam ( see scanned) documented in [facility]Wilson [facility]06-04-2025 NoteHNO ID: [id number] Author: ERIK PINEDA MD Service: ? Author Type: Physician Type: Progress Notes Filed: 02/15/2025 14:59 Note Text: SECTION OF SKULL BASE SURGERY MINIMALLY INVASIVE CRANIAL BASE AND PITUITARY SURGERY PROGRAM [facility] [place] TELEMEDICINE FOLLOW-UP VISIT This is a virtual visit. It required patient-provider interaction for the medical decision making as documented below. Kourtney Novak has consented for this telemedicine encounter. I have communicated my name and active licensure. The patient's identity and physical location were verified at the time of this visit. Either the patient or their legal publications sales representative has been informed of the [...] week postoperatively. - Consent form sent via [employer], including consent for blood transfusion if necessary. - Patient understands and agrees with the treatment plan. I spent a total of 30 minutes on the date of the service which included preparing to see the patient, cjdz-kn-kzmt patient care, completing clinical documentation, performing a [...] daily. No current facility-administered (more content not included)...[facility]06-04-2025 Telephone encounter Note* Telephone Encounter - Barbara Rosenthal LPN - 02/15/2025 8:21 AM EDT I called and spoke with patient. Relayed below message; denies questions at this time. Will go to [facility]. Barbara Rosenthal LPN February 15, 2025 8:[address] [facility]06-04-2025 Miscellaneous Notes* Telephone Encounter - Barbara Rosenthal LPN - 02/15/2025 8:21 AM EDT I called and spoke with patient. Relayed below message; denies questions at this time. Will go to Bree Rosenthal LPN February 15, 2025 8:22 AM * Telephone Encounter - Mehul Martin APRN.JOSSIE - 02/15/2025 8:09 AM EDT Please call patient. Lab did not draw Con[place], A1C, or BMP. Please have her go to closest [facility] lab tohave them drawn. She can go to [facility] in [place] if that is best for her thank you. Thank you, Mehul Martin APRN.JOSSIE documented in [facility]06-[facility] Telephone encounter Note * Telephone Encounter - Mehul Martin APRN.CNP - 02/15/2025 8:09 AM EDT Please call patient. Lab did not draw Conabo, A1C, or BMP. Please have her go to closest [facility] lab tohave them drawn. She can go to [facility] in [place] if that is best for her thank you. Thank you, Mehul Martin APRN.JOSSIE [facility]06-03-2025 History of Present illness Narrative* Iwona Lainez RT(R) - 02/14/2025 9:20 AM EDT [...] PATIENT PRESENTS WITH AN IMPLANTABLE OR ATTACHED ELECTRIC MOTOR AND GENERATOR ASSEMBLER: No RADIOLOGY DEPARTMENT: MR; Exam(s) Completed: Head: Routine Brain Localization PERIPHERAL IV DATA: Site assessment: Clean,Dry and Intact, Site disposition Discontinued SIGNED BY: TITO Marquez) February 14, 2025 9:16 AM documented in this encounterWilson [address] Hospital06-03-2025 NoteHNO ID: [id number] Author: IWONA LAINEZ RT(R) Service: ? Author [...] PATIENT PRESENTS WITH AN IMPLANTABLE OR ATTACHED ELECTRIC MOTOR AND GENERATOR ASSEMBLER: No RADIOLOGY DEPARTMENT: MR; Exam(s) Completed: Head: Routine Brain Localization PERIPHERAL IV DATA: Site assessment: Clean,Dry and Intact, Site disposition Discontinued SIGNED BY: TITO Marquez) February 14, 2025 9:16 [facility]06-03-2025 History and physical note* Mehul Martin, MARILEE.RELASTER - 02/14/2025 7:40 AM EDT HISTORY AND [...] [facility] COPD (chronic obstructive pulmonary disease) ([facility]) Assessment: Stable with nebulizer treatments Denies any SOB Denies any Home oxygen use Lungs clear on exam SpO2 in office today 96% Monitored by PCP MAREK (obstructive sleep apnea) Assessment: Does not use CPAP Mixed hyperlipidemia Assessment: Compliant with Statin GERD (gastroesophageal reflux disease) Assessment: Controlled with dexilant Hypothyroidism Assessment: Controlled with levothyroxine Diabetes mellitus ([facility]) Assessment: Complaint with oral medications [...] of breath with the above physical activity. [id number] Score: Age: <65 Sex: female CHF history: No Hypertension history: No Stroke/TIA/thromboembolism history: No Vascular disease history: No Diabetes history: Yes [id number] Score: 2 ARISCAT Score: Age: <=50 Preoperative [...] original vaccine, age 12+ yr, monovalent (PFIZER- BIONTHulafrog - [facility]) 01/02/2021 Imm Admin: COVID-19 original vaccine, age 12+ yr, monovalent (PFIZER- BIONTECH - [facility]) REVIEW OF SYSTEMS: PAIN ASSESSMENT: General: No weight loss, malaise or fevers. Neuro: See HPI +Fibromyalgia Respiratory: Negative for Asthma, Dyspnea, Home O2 +COPD +MAREK Cardiovascular: Negative for Recent FL, Angina, Chest Pain, PVD, DVT/PE +HLD GI: Negative for Nausea, Vomiting, Abdominal pain +GERD : Negative for dysuria, incontinence, hematuria, and hesitancy SITE HEAD: Negative for abnormal vaginal bleeding, abnormal vaginal [...] 386 QTC Calculation (Bazett) 436 Calculated P [place] 36 Calculated R [place] 47 Calculated T [place] 47 Impression NORMAL SINUS RHYTHM NORMAL ECG Instructions Given to Patient: Instructions located in the after visit summary. Patient given verbal and written preop instructions and voices comprehension and compliance. SIGNATURE: Mehul Martin APRN.CNP PATIENT NAME: Kourtney Novak DATE: 02/14/2025 TIME: 7:[address] [facility]06-03-2025 History and physical note* Mehul Martin [...] [facility] COPD (chronic obstructive pulmonary disease) ([facility]) Assessment: Stable with nebulizer treatments Denies any SOB Denies any Home oxygen use Lungs clear on exam SpO2 in office today 96% Monitored by PCP MAREK (obstructive sleep apnea) Assessment: Does not use CPAP Mixed hyperlipidemia Assessment: Compliant with Statin GERD (gastroesophageal reflux disease) Assessment: Controlled with dexilant Hypothyroidism Assessment: Controlled with levothyroxine Diabetes mellitus ([facility]) Assessment: Complaint with oral medications [...] of breath with the above physical activity. [id number] Score: Age: <65 Sex: female CHF history: No Hypertension history: No Stroke/TIA/thromboembolism history: No Vascular disease history: No Diabetes history: Yes [id number] Score: 2 ARISCAT Score: Age: <=50 Preoperative [...] 12+ yr, monovalent (PFIZER- BIONTECH - [facility]) REVIEW OF SYSTEMS: PAIN ASSESSMENT: General: No weight loss, malaise or fevers. Neuro: See HPI +Fibromyalgia Respiratory: Negative for Asthma, Dyspnea, Home O2 +COPD +MAREK Cardiovascular: Negative for Recent FL, Angina, Chest Pain, PVD, DVT/PE +HLD GI: Negative for Nausea, Vomiting, Abdominal pain +GERD : Negative for dysuria, incontinence, hematuria, and hesitancy SITE HEAD: Negative for abnormal vaginal bleeding, abnormal vaginal [...] 386 QTC Calculation (Bazett) 436 Calculated P [place] 36 Calculated R [place] 47 Calculated T [place] 47 Impression NORMAL SINUS RHYTHM NORMAL ECG Instructions Given to Patient: Instructions located in the after visit summary. Patient given verbal and written preop instructions and voices comprehension and compliance. SIGNATURE: Mehul Martin APRN.CNP PATIENT NAME: Kourtney Novak DATE: 02/14/2025 TIME: 7:58 AM documented in [address]Wilson [address] Hospital06-02-2025 Instructions* Patient Instructions* Mehul Martin APRN.CNP - 02/13/2025 11:26 AM EDT PATIENT PREOPERATIVE INSTRUCTIONS You Surgeon has scheduled you for your procedure at this surgery center: [facility] [place] Scheduling Office: [phone] --[address] [place] [address]. Please read below carefully for your personalized [...] SURGERY If you are currently using a [id number]-muam injectable or oral medication for diabetes or [...] Procedures: - YOU MUST HAVE A RESPONSIBLE OFFICE EQUIPMENT MECHANIC TAKE YOU HOME. A CLEAN UP SUPERVISOR OR FINGERPRINT CLERK CANNOT BE MADE A RESPONSIBLE OFFICE EQUIPMENT MECHANIC. - We recommend that a responsible person [...] call the Thursday before. Your surgeon s energy scheduler will tell you what time to call the office. - If you have not reached the departmental energy scheduler by 5 P.M., call [phone] after 5 P.M. the day before your surgery. Please be aware that emergency situations arise, which may delay or change your surgical time. If this happens, we will notify you as soon as possible and regret any inconvenience. If you already have an Advance Directive, please fax a copy to [phone] or email to for it to be [...] day. Mehul Martin APRN.JOSSIE documented in this encounterWilson [address] Hospital05-30-2025 Radiology Diagnostic [facility] [place] [address] Ultrasound Report Signed Patient: Kourtney Novak MR#: [id number] : 1975 Acct:[id number] Age/Sex: 49 / F ADM Date: 5 Loc: Room: Type: [facility] Attending Dr: Jesus Gonzalez MD Ordering [...] Gray M.D. 02/10/2025 4:44 PM Dictation Location: [place] [address] Tech: Vani Baker Transcribed By: GRACIE 02/10/25 1644 Dictated By: George Gray DO 02/10/25 1643 Signed By: 02/10/25 1644 [facility]05-15-2025 Telephone encounter Note* Telephone Encounter - Gifty [...] WEEK THEN STOP Pharmacy Name: [facility]05-15-2025 Miscellaneous Notes* Telephone Encounter - Gifty [...] 1 WEEK THEN STOP [facility]acy [facility]: [facility] [place] documented in [address] Hospital04-25-2025 NoteHNO ID: [id number] Author: RACHELE FENTON APRN.JOSSIE Service: ? Author [...] visit. Either the patient or their legal publications sales representative has been informed of the [...] 15 mg tablet simvastatin (more content not included)...[facility]04-24-2025 NoteHNO ID: [id number] Author: LA NENA WATERMAN LPN Service: ? Author Type: LICENSED NURSE Type: Progress Notes Filed: 01/05/2025 12:51 Note Text: Eye exam for Plaquenil toxicity received from [facility]. Exam date was 12/20/2024. Exam shows no signs of Plaquenil toxicity. Forms sent for scanning.[facility]04-17-2025 Telephone encounter Note* Telephone Encounter - Gifty [...] A DAY NEEDED Pharmacy Name: [facility]04-17-2025 Miscellaneous Notes* Telephone Encounter - Gifty [...] A DAY NEEDED Pharmacy Name: [facility] [place] documented in [address] Hospital04-16-2025 NoteHNO ID: [id number] Author: ZULEMA WOOD MD Service: ? Author [...] extremities. GI: Bowel sound (more content not included)...[facility] 12-28-2024 History of Present illness Narrative* Zulema [...] No Swollen Glands: No documented in this encounterWilson [address] Hospital04-15-2025 Evaluation note* Diagnosis Onset Date Resolution Status Admit Date Osteochondrosis of lunate of right wrist acuteApril 2024 12:51pmRight wrist painacuteApril 2024 12:51pm Osteochondrosis of lunate of right wristacuteMay 2024 1:57pmRight wrist painacuteMay 2024 1:57pm [facility] Work Phone: 1(965) 806-162804-15-2025 Evaluation note* Diagnosis Onset Date Resolution Status Admit Date Osteochondrosis of lunate of right wrist acuteApril 2024 12:51pmRight wrist painacuteApril 2024 12:51pm Osteochondrosis of lunate of right wristacuteMay 2024 1:57pmRight wrist painacuteMay 2024 1:57pmOsteochondrosis of lunate of right wristacuteJuly 2024 3:55pmRight wrist painacuteJuly 2024 3:55pm [facility] Work Phone: 1(272) 288-959003-24-2025 Telephone encounter Note* Telephone Encounter - Shakila [...] reach out for questions/concerns/updates. Shakila Phillips RN, Assembler Metal Furniture [facility]03-24-2025 Miscellaneous Notes* Telephone Encounter - Shakila [...] reach out for questions/concerns/updates. Shakila Phillips RN, Assembler Metal Furniture * Telephone Encounter - Shakila Phillips RN - 12/05/2024 10:04 AM EDT Left a detailed voice message for the patient requesting a call back to discuss her plan of care & scheduling surgery. Contact info provided. documented in this encounterWilson [address] Hospital03-24-2025 Telephone encounter Note * Telephone Encounter - Shakila Phillips RN - 12/05/2024 10:04 AM EDT Left a detailed voice message for the patient requesting a call back to discuss her plan of care & scheduling surgery. Contact info provided. [facility]02-20-2025 Evaluation note* Diagnosis Onset Date Resolution Status Admit Date Bursitis of left shoulder acuteFebruary 2024 9:12amOsteochondrosis of lunate of right wristacute December 27, 2024 12:51pmRight wrist painacuteApr2024 12:51pm [facility] Work Phone: 1(622) 872-148001-27-2025 Telephone encounter Note* Telephone Encounter - Tere Escamilla LPN - 10/10/2024 4:59 PM EST Faxed new order with updated diagnosis code . sent to [phone]. [facility]01-27-2025 Miscellaneous Notes* Telephone Encounter - Tere Escamilla LPN - 10/10/2024 4:59 PM EST Faxed new order with updated diagnosis code . sent to [phone]. * Telephone Encounter - Tere Escamilla LPN - 10/10/2024 3:27 PM EST Received fax from [facility]. States that diagnosis code M19.9 ( inflammatory arthritis ) does not pass medical necessity for the [address] regarding CBC test. They needs a different order to be placed with another diagnosis code. Please fax to Jimbo Whitten at [phone]. Notice sent to scanning . Please route to [facility] nurse for follow up documented in this encounterWilson [address] Hospital01-27-2025 Telephone encounter Note * Telephone Encounter [...] equal 90mg po qd Zulema Wood MD [facility]01-27-2025 Miscellaneous Notes* Telephone Encounter - Zulema [...] Days Visit Type Date Time Department [facility] 12/28/2024 9:20 AM [facility] Last Ophthalmology Check for Plaquenil [...] Assoc. diagnoses: Inflammatory arthritis C-REACTIVE PROTEIN [SQCRP] 12/16 Every 3 months 09/06/25 09/09/24 Auth. provider: Zulema Wood MD Assoc. diagnoses: Inflammatory arthritis Open Future (Single Instance) Lab Orders None documented in this encounterWilson [address] Hospital01-27-2025 Telephone encounter Note * Telephone Encounter - Tere Escamilla LPN - 10/10/2024 3:27 PM EST Received fax from [facility]. States that diagnosis code M19.9 ( inflammatory arthritis ) does not pass medical necessity for the 61192 regarding CBC test. They needs a different order to be placed with another diagnosis code. Please fax to Jimbo Whitten at [phone]. Notice sent to scanning . Please route to [facility] nurse for follow up [facility]01-27-2025 Telephone encounter Note* Telephone Encounter - [...] Days Visit Type Date Time Department [facility] 12/28/2024 9:20 AM [facility] RE[facility] Last Ophthalmology Check for Plaquenil [...] Open Future (Single Instance) Lab Orders None [facility]01-14-2025 Evaluation note* Diagnosis Onset Date Resolution Status Admit Date Osteochondrosis of lunate of right wrist acuteJanuary 2024 2:48pmRight wrist painacuteJanuary 2024 2:48pm Bursitis of left shoulderacuteFebruary 2024 9:12am [facility] Work Phone: 1(266) 829-667901-07-2025 Telephone encounter Note* Telephone Encounter - Tere Escamilla LPN - 09/20/2024 5:15 PM EST Lab results received from [facility] . Copy sent to scan, copy sent to provider folder for review. . [facility]01-07-2025 Miscellaneous Notes* Telephone Encounter - Tere Escamilla LPN - 09/20/2024 5:15 PM EST Lab results received from [facility] . Copy sent to scan, copy sent to provider folder for review. . documented in this encounterWilson [address] Hospital01-02-2025 Telephone encounter Note * Telephone Encounter - Tere Escamilla LPN - 09/15/2024 3:42 PM EST Lab orders faxed to [phone]. Patient updated via [facility]01-02-2025 Miscellaneous Notes* Telephone Encounter - Tere Escamilla LPN - 09/15/2024 3:42 PM EST Lab orders faxed to [phone]. Patient updated via [facility] * Telephone Encounter - Zulema Wood MD - 09/15/2024 2:04 PM EST Please send lab orders to where patient would like. [facility] call patient to discuss. Zulema Wood MD documented in this encounterWilson [address] Hospital01-02-2025 Telephone encounter Note * Telephone Encounter - Zulema Wood MD - 09/15/2024 2:04 PM EST Please send lab orders to where patient would like. [facility] call patient to discuss. Zulema Wood MD [facility]12-27-2024 Telephone encounter Note* Telephone Encounter - [...] EVERY DAY Authorizing Provider: ZULEMA WOOD MD [facility]12-27-2024 Telephone encounter Note* Telephone Encounter - [...] EVERY DAY Authorizing Provider: ZULEMA WOOD MD [facility]12-27-2024 Miscellaneous Notes* Telephone Encounter - Zulema [...] advise if labs are appropriate. Route to [facility] Nurse in order to follow up with faxing Lab orders to [facility] [phone] . * Telephone Encounter - Alisha Paniagua [...] Days Visit Type Date Time Department [facility] 12/28/2024 9:20 AM [facility] Last Ophthalmology Check for Plaquenil [...] Instance) Lab Orders None documented in this encounterWilson [address] Hospital12-24-2024 Telephone encounter Note * Telephone Encounter - Tere Escamilla LPN - 09/06/2024 11:11 AM EST No current labs ordered . Please advise if labs are appropriate. Route to [facility] Nurse in order to follow up with faxing Lab orders to [facility] [phone] . [facility]12-19-2024 Telephone encounter Note* Telephone Encounter - Alisha Paniagua RN - 09/01/2024 5:10 PM EST Please monitor for receipt of labs. No labs completed presently. [facility]12-18-2024 Telephone encounter Note* Telephone Encounter - Zulema Wood MD - 08/31/2024 4:25 PM EST She needs labs before I can give her refill. Labs in epic. Zulema Wood MD [facility]12-16-2024 Telephone encounter Note* Telephone Encounter - [...] Days Visit Type Date Time Department [facility] 12/28/2024 9:20 AM [facility] RE[facility] Last Ophthalmology Check for Plaquenil [...] Open Future (Single Instance) Lab Orders None [facility]10-30-2024 History of Present illness Narrative* Estevan [...] 20 tablet; Refill: 0 documented in this encounterParkland Health [id number] History of Present illness Narrative* Zulema Wood [...] No Swollen Glands: No documented in this encounterWilson [address] Hospital09-12-2024 Telephone encounter Note * Telephone Encounter - Eun Stanford APRN.CNP - 05/26/2024 10:59 AM EDT The following approved medication requests have been transmitted electronically. Requested Prescriptions Signed Prescriptions Disp Refills methocarbamol (ROBAXIN) 500 mg tablet 45 tablet 2 Sig: Take 1 tablet by mouth two times a day as needed. Authorizing Provider: EUN STANFORD APRN.CNP [facility]09-12-2024 Miscellaneous Notes* Telephone Encounter - Eun [...] Please E-Scribe Last office visit 02/05/24 with [facility] virtual Next office visit N/A Patient Comment: [...] Pharmacy Name: [facility] documented in [address] [facility] [facility]09-12-2024 Telephone encounter Note * Telephone Encounter [...] day as needed. Pharmacy Name: [facility]07-12-2024 Telephone encounter Note* Telephone Encounter - Zulema Wood MD - 03/25/2024 12:32 PM EDT The following approved medication requests have been transmitted electronically. Requested Prescriptions Pending Prescriptions Disp Refills predniSONE (DELTASONE) 5 mg tablet [Pharmacy Med Name: prednisone 5 mg tablet] 60 tablet 3 Sig: TAKE 1 TO 2 TABLETS BY MOUTH EVERY DAY Zulema Wood MD [facility]07-12-2024 Miscellaneous Notes* Telephone Encounter - Zulema [...] 365 Days Visit Type Date Time Department [facility] 05/30/2024 9:40 AM [facility] RE[facility] Last Ophthalmology Check for Plaquenil [...] (HCC), Preop testing TYPE AND SCREEN,30 DAY [[id number]] 02/03/24 05/04/24 02/03/24 Auth. provider: Erik Pineda MD Assoc. diagnoses: Intracranial meningioma (HCC), Preop testing documented in this encounterWilson [address] Hospital07-12-2024 Telephone encounter Note * Telephone Encounter [...] Days Visit Type Date Time Department [facility] 05/30/2024 9:40 AM [facility] Last Ophthalmology Check for Plaquenil [...] (HCC), Preop testing TYPE AND SCREEN,30 DAY [[id number]] 02/03/24 05/04/24 02/03/24 Auth. provider: Erik Pineda MD Assoc. diagnoses: Intracranial meningioma (HCC), Preop testing [facility]07-10-2024 Telephone encounter Note* Telephone Encounter - Emma Vargas - 03/23/2024 2:05 PM EDT Patient last seen 02/05/2024. [facility]07-10-2024 Miscellaneous Notes* Telephone Encounter - Emma Vargas - 03/23/2024 2:05 PM EDT Patient last seen 02/05/2024. documented in this encounterWilson [address] Hospital06-25-2024 Telephone encounter Note * Telephone Encounter - Shakila Phillips RN - 03/08/2024 2:39 PM EDT ADDENDUM: March 08, 2024 2:39 PM Distance Health Visit on 02/02/2024 including the details for the patient's surgery was faxed to Moira DONOVAN ( [facility]) . Shakila Phillips RN, Assembler [employer] Furniture [facility]06-25-2024 Miscellaneous Notes* Telephone Encounter - Shakila Phillips RN - 03/08/2024 2:39 PM EDT ADDENDUM: March 08, 2024 2:39 PM Distance Health Visit on 02/02/2024 including the details for the patient's surgery was faxed to Moira DONOVAN ( [facility]) . Shakila Phillips RN, Assembler [employer] * Telephone Encounter - Shakila Phillips RN - 03/08/2024 2:17 PM EDT Spoke with nurse Pizarro. We discussed that the patient's epidural steroid injection on 03/14/2024 for her neck pain (C7/T1) isfar out from her surgery for the craniotomy with Dr Erik Pineda (04/04/24). Shakila Phillips RN, Assembler [employer] Furn[employer] * Telephone Encounter - Brain Ruth - 03/08/2024 1:46 PM EDT General Call Caller : Moira Ortiz nurse at [facility] Contact Reason for Call : Nurse would like to confirm that pt is allowed to receive steroid injection priorto surgery-80mg of kenalog Patient requesting return call ? Yes documented in this encounterWilson [address] Hospital06-25-2024 Telephone encounter Note * Telephone Encounter - Shakila Phillips RN - 03/08/2024 2:17 PM EDT Spoke with nurse Pizarro. We discussed that the patient's epidural steroid injection on 03/14/2024 for her neck pain (C7/T1) isfar out from her surgery for the craniotomy with Dr Erik Pineda (04/04/24). Shakila Phillips RN, Assembler [employer] Furniture [facility]06-25-2024 Telephone encounter Note* Telephone Encounter - Brain Ruth - 03/08/2024 1:46 PM EDT General Call Caller : Moira Ortiz nurse at [facility] Contact Reason for Call : Nurse would like to confirm that pt is allowed to receive steroid injection priorto surgery-80mg of kenalog Patient requesting return call ? Yes [facility]05-29-2024 Telephone encounter Note* Telephone Encounter - Gifty Dash - 02/10/2024 3:12 PM EDT Images from the original note were not included. Prior Authorization for Medications Requested by ([employer], Pharmacy, Patient Call, Fax) : [facility] Pharmacy Name: [facility] Phone # : [phone] Name of Medication : Robaxin Dose : 500 mg Tablet If renewal, auth date expiration: NA Prescribing Provider: Eliceo Last OV: 02/05/2024 with Eliceo Insurance Provider : Medicare / [employer]. Is insurance card scanned in, including Rx info? Medicare card scanned - no RX information Insurance Phone : CoverMyMeds [place]: NA E-PA? Yes [facility]05-29-2024 Miscellaneous Notes* Telephone Encounter - [place] Gifty Rea - 02/10/2024 3:12 PM EDT Images from the original note were not included. Prior Authorization for Medications Requested by (Karthik, Pharmacy, Patient Call, Fax) : [facility] Pharmacy Name: [facility] Phone # : [phone] Name of Medication : Robaxin Dose : 500 mg Tablet If renewal, auth date expiration: NA Prescribing Provider: Eliceo Last OV: 02/05/2024 with Eliceo Insurance Provider : Medicare / [employer]. Is insurance card scanned in, including Rx info? Medicare card scanned - no RX information Insurance Phone : CoverMyMeds [place]: NA E-PA? Yes documented in [address] [facility] [facility]05-24-2024 History of Present illness Narrative* Rachele Fenton APRN.JOSSIE - 02/05/2024 7:00 AM EDT Images from [...] visit. Either the patient or their legal publications sales representative has been informed of the [...] these with the patient: yes Rachele Fenton APRN.RELASTER HEADACHE SCORES: 06/19/2023 02/01/2024 Headache Questions ID [...] soft tissue component identified in the orbit. Company Doctor: PSCIliana Transcribe Date/Time: Jan 31 2024 3:33P Dictated [...] 30 minutes Rachele Fenton APRN.CNP Headache Section [facility] February 05, [address] [facility]05-21-2024 History of Present illness Narrative* Alexandria Bartholomew MD - 02/02/2024 7:36 PM EDT Images from the original note were not included. SECTION OF SKULL BASE SURGERY MINIMALLY INVASIVE CRANIAL BASE & PITUITARY SURGERY PROGRAM [facility] [place] CC: Patient Care Team: Jesus Gonzalez [...] which included preparing to see the patient, [id number] patient care, completing clinical documentation, performing a medically appropriate examination, counseling and educating the patient/family/caregiver, communicating with other HCPs, independently interpreting resultsand care coordination. Alexandria Bartholomew MD PhD Subjective: Patient is unaccompanied. Ms Kohlenberg informs me that her meningioma was found [...] sphenoid wing without significant change since 05/06/2023. Company Doctor: [employer] Transcribe Date/Time: Jan 31 2024 5:10P Dictated by : WESTLEY IYER MD This examination was interpreted and the report reviewed and electronically signed by: WESTLEY IYER MD on Jan 31 2024 5:28PM EST Results-Findings * * *Final Report* * * DATE OF EXAM: Jan 29 2024 1:56PM [facility] 0319 - MRI SKULL BASE WO/W IVCON [...] tissue mass extending into the of the marker machine or parapharyngeal spaces. The soft tissue planes of the, retropharyngeal, and prevertebral spaces are maintained. The visualized parotid glands are normal in appearance. Nasopharynx/Oropharynx: The nasopharynx and oropharynx are normal in appearance. Result History [facility] Telephone encounter Note * Telephone Encounter - Shakila Phillips RN - 02/02/2024 10:23 AM EDT Called the patient confirming virtual appointment today at [address] Alexandria Bartholomew ( Skull base fellow from Dr Pineda team). [facility]05-21-2024 Miscellaneous Notes* Telephone Encounter - Shakila Phillips RN - 02/02/2024 10:23 AM EDT Called the patient confirming virtual appointment today at [address] Alexandria Bartholomew ( Skull base fellow from Dr Pineda team). documented in [facility]-20-[facility]24 Telephone encounter Note * Telephone Encounter - Jumana Zapien RN - 02/01/2024 10:39 AM EDT Pharmacy requesting refill via [employer]. Last OV: 06/26/2023 Future OV: 02/05/2024 with Rachele Fenton APRN.RELASTER Last prescribed: 06/26/2023 Requested Prescriptions Pending Prescriptions Disp Refills tiZANidine (ZANAFLEX) 4 mg tablet [Pharmacy Med Name: tizanidine 4 mg tablet] 60 tablet 3 Sig: take 1 tablet by mouth every 8 hours as needed [facility]05-20-2024 Miscellaneous Notes* Telephone Encounter - Jumana Zapien RN - 02/01/2024 10:39 AM EDT Pharmacy requesting refill via [employer]. Last OV: 06/26/2023 Future OV: 02/05/2024 with Rachele Fenton APRN.RELASTER Last prescribed: 06/26/2023 Requested Prescriptions Pending Prescriptions Disp Refills tiZANidine (ZANAFLEX) 4 mg tablet [Pharmacy Med Name: tizanidine 4 mg tablet] 60 tablet 3 Sig: take 1 tablet by mouth every 8 hours as needed documented in this encounterWilson [facility] Hospital05-17-2024 NoteHNO ID: [id number] Author: KOFI [place] Service: Radiology Author [...] PATIENT PRESENTS WITH AN IMPLANTABLE OR ATTACHED ELECTRIC MOTOR AND GENERATOR ASSEMBLER: No RADIOLOGY DEPARTMENT: CT; Exam(s) Completed: Brain STERO PERIPHERAL IV DATA: Not applicable SIGNED BY: KAYLEEN Sharma January 29, 2024 12:53 [facility]05-17-2024 NoteHNO ID: [id number] Author: AILYN NEUMANN RT(R) Service: ? Author [...] PATIENT PRESENTS WITH AN IMPLANTABLE OR ATTACHED ELECTRIC MOTOR AND GENERATOR ASSEMBLER: No ALLERGIES: Reviewed and unchanged CONTRAST ALLERGY: NO. EXAM: MRI - CONTRAST TYPE: GROUP II PERIPHERAL IV DATA: Ambulatory: A peripheral IV was started in the Left antecubital site with a Angio cath: 22 gauge. RADIOLOGY DEPARTMENT: MR; Exam(s) Completed: Head: Routine Brain SIGNATURE: Ailyn Neumann RDMS, RVT- Sheila ([facility]) PATIENT NAME: Kourtney Novak DATE: January 29, 2024 TIME: 1:06 [facility]05-17-2024 History of Present illness Narrative* [place] [...] PATIENT PRESENTS WITH AN IMPLANTABLE OR ATTACHED ELECTRIC MOTOR AND GENERATOR ASSEMBLER: No RADIOLOGY DEPARTMENT: CT; Exam(s) Completed: Brain STERO PERIPHERAL IV DATA: Not applicable SIGNED BY: KAYLEEN Sharma January 29, 2024 12:53 PM documented in [address] [facility]Wilson [address] Hospital05-17-2024 History of Present illness Narrative* Ailyn [...] PATIENT PRESENTS WITH AN IMPLANTABLE OR ATTACHED ELECTRIC MOTOR AND GENERATOR ASSEMBLER: No ALLERGIES: Reviewed and unchanged CONTRAST ALLERGY: NO. EXAM: MRI - CONTRAST TYPE: GROUP II PERIPHERAL IV DATA: Ambulatory: A peripheral IV was started in the Left antecubital site with a Angio cath: 22 gauge. RADIOLOGY DEPARTMENT: MR; Exam(s) Completed: Head: Routine Brain SIGNATURE: Ailyn Neumann RDMS, RVTMack Veras ([facility]) PATIENT NAME: Kourtney Novak DATE: January 29, 2024 TIME: 1:06 PM documented in [address] [facility]05-15-2024 Telephone encounter Note * Telephone Encounter - Zulema Wood MD - 01/27/2024 3:29 PM EDT The following approved medication requests have been transmitted electronically. Requested Prescriptions Pending Prescriptions Disp Refills etodolac (LODINE) 400 mg tablet 60 tablet 3 Sig: One tab po bid prn Zulema Wood MD [facility]05-15-2024 Miscellaneous Notes* Telephone Encounter - Zulema [...] Days Visit Type Date Time Department [facility] 05/30/2024 9:40 AM [facility] Last Ophthalmology Check for Plaquenil [...] Instance) Lab Orders None documented in this [facility]Wilson [facility]05-15-2024 Telephone encounter Note * Telephone Encounter [...] Days Visit Type Date Time Department [facility] 05/30/2024 9:40 AM [facility] Last Ophthalmology Check for Plaquenil [...] Open Future (Single Instance) Lab Orders None [facility]05-07-2024 Telephone encounter Note* Telephone Encounter - [...] discussion and consent. Both appointments were confirmed. [facility]05-07-2024 Miscellaneous Notes* Telephone Encounter - Shakila [...] 9:30 AM EDT Spoke with Ms Kourtney Noavk today confirming surgery on 04/11/[address] Erik Pineda. Right middle sphenoid wing Preoperative appointments will be scheduled ~ 2 weeks prior to surgery date at a [facility] facility closer to the patient's home. Shakila Phillips RN, Assembler Metal Furniture documented in this encounterWilson [facility] Hospital05-07-2024 Telephone encounter Note * Telephone Encounter - Shakila Phillips RN - 01/19/2024 9:30 AM EDT Spoke with Ms Kourtney Novak today confirming surgery on 04/11/[address] Erik Pineda. Right middle sphenoid wing Preoperative appointments will be scheduled ~ 2 weeks prior to surgery date at a [facility] facility closer to the patient's home. Shakila Phillips RN, Assembler Metal Furniture [facility]04-26-2024 Telephone encounter Note* Telephone Encounter - Rohit Khan MA - 01/08/2024 3:14 PM EDT Lab results received from [facility]. Placed in dr Vinay griggs for review,copy sent to scanning. [facility]04-26-2024 Miscellaneous Notes* Telephone Encounter - Rohit Khan MA - 01/08/2024 3:14 PM EDT Lab results received from [facility]. Placed in dr Vinay griggs for review,copy sent to scanning. documented in this encounterWilson [address] Hospital04-23-2024 Telephone encounter Note * Telephone Encounter - Shakila Phillips RN - 01/05/2024 1:04 PM EDT Spoke with Estefany Kourtney Johnson Marino today confirming surgery on Thu03/28/[address] Erik Pineda. Preoperative appointments to be scheduled at a [facility] facility near the patient's home. [facility]04-23-2024 Miscellaneous Notes* Telephone Encounter - Shakila Phillips RN - 01/05/2024 1:04 PM EDT Spoke with Estefany Kourtney Johnson Marino today confirming surgery on Thu03/28/[address] Erik Pineda. Preoperative appointments to be scheduled at a [facility] facility near the patient's home. documented in this [facility] [facility]04-22-2024 Telephone encounter Note * Telephone Encounter - Michelle Thompson MA - 01/04/2024 4:17 PM EDT Orders faxed. Confirmation received. [facility]04-22-2024 Miscellaneous Notes* Telephone Encounter - Michelle Thompson MA - 01/04/2024 4:17 PM EDT Orders faxed. Confirmation received. * Telephone Encounter - Michelle Thompson MA - 01/04/2024 2:43 PM EDT Printed labs. Sent msg to pt to clarify which [facility] Lab to fax to. Labs/Fax [...] requesting to FAX 01/01/24 [facility] She will send their FAX # in My Chart documented in this encounterWilson [address] Hospital04-22-2024 Telephone encounter Note * Telephone Encounter - Michelle Thompson MA - 01/04/2024 2:43 PM EDT Printed labs. Sent msg to pt to clarify which [facility] Lab to fax to. Labs/Fax sheet in Michelle'slime green folder. Please fax once clarification is received. [facility]04-22-2024 Telephone encounter Note* Telephone Encounter - Zulema Wood MD - 01/04/2024 2:03 PM EDT Labs are ordered, please print and fax per patient request. Zulema Wood MD [facility]04-22-2024 Telephone encounter Note* Telephone Encounter - Verenice Ga RN - 01/04/2024 1:45 PM EDT Patient calling Needs 01/01/24 Lab Orders in Epic please (pended) Also requesting to FAX 01/01/24 Lab Orders to [facility] She will send their FAX # in My Chart [facility]03-20-2024 Miscellaneous Notes* Telephone Encounter - Tory [...] if patient had any question please call [phone]. My Chart Message also sent. * Telephone [...] 365 Days Visit Type Date Time Department [facility] 05/30/2024 9:40 AM [facility] Last Ophthalmology Check for Plaquenil [...] Instance) Lab Orders None documented in this encounterWilson [address] Hospital02-29-2024 Miscellaneous Notes* Telephone Encounter - Zulema [...] Days Visit Type Date Time Department [facility] 05/30/2024 9:40 AM [facility] Last Ophthalmology Check for Plaquenil [...] Instance) Lab Orders None documented in this encounterWilson [address] Hospital02-28-2024 Miscellaneous Notes* Telephone Encounter - Zulema [...] 365 Days Visit Type Date Time Department [facility] 05/30/2024 9:40 AM [facility] Last Ophthalmology Check for Plaquenil [...] Instance) Lab Orders None documented in this encounterWilson [address] Hospital02-28-2024 Miscellaneous Notes* Telephone Encounter - Shakila Phillips RN - 11/11/2023 11:37 AM EST Spoke with Ms.Mandie Alex Novak today following up on the [employer] message from 10/08/2023. She sent a message about having symptoms of blurry vision and was advised to schedule an appointment with ophthalmology. Today the patient stated that the blurry vision was 1 incident and that she did not have any visionchanges since. She was made aware to send an update or call for any questions or concerns. Shakila Phillips RN, Assembler Metal Furniture documented in this [address] [facility]02-27-2024 Miscellaneous Notes* Telephone Encounter - Nathaly [...] Visit Type Date Time Department [facility] 05/30/2024 9:40 AM [facility] Last Ophthalmology Check for Plaquenil [...] Instance) Lab Orders None documented in this encounterCleveland [id number] Miscellaneous Notes* Telephone Encounter - Shakila Phillips RN - 07/06/2023 3:23 PM EDT Spoke with Ms. Kourtney Novak. We discussed that it is so far out to schedule surgery in March 2024. We discussed option of possible surgery dates. She will be contacted during late December- January 2024 toconfirm the date of surgery and schedule the preoperative appointments. Shakila Phillips RN, Assembler Metal Furniture * Telephone Encounter - Justine Pagan - 07/02/2023 3:04 PM EDT General Call Caller : Pt Contact Reason for Call : Pt would like to go forward w scheduling surgery. However, she would like surgeryto be scheduled in March 2024, pt would like to discuss further Patient requesting return call ? Yes documented in [address] Hospital10-23-2023 Miscellaneous Notes* Telephone Encounter - Shakila Phillips RN - 07/06/2023 3:21 PM EDT Spoke with Estefany Kourtney Johnson Edwarderic. We discussed that it is so far out to schedule surgery in March 2024. We discussed option of possible surgery dates. She will be contacted during late December- January 2024 toconfirm the date of surgery and schedule the preoperative appointments. Shakila Phillips RN, Assembler Metal Furniture documented in this [facility]10-17-2023 Instructions* Patient Instructions* Stephanie Moy APRN.RELASTER - 06/30/2023 11:30 AM EDT I believe [...] (due back Apr 2024). documented in [address] [facility]10-17-2023 Nurse Note* Bess Do Ma - 06/30/2023 10:52 AM EDT Additional intake questions: Has the patient had fever, nausea, vomiting, diarrhea, constipation, fatigue for > 1 week? No Does the patient have a decreased appetite? No Does patient want to see a Networking Specialist? No (yes to any of above refer patient to schedulers for dietitian appointment) ) Does patient have any new or increased numbness or tingling of extremities? No Is patient interested in fertility information? No Does patient need any prescription refills? No Does patient have an advanced directive in place? No, Patient referred to Resource [facility] documented in this [address] [facility]10-17-2023 History of Present illness Narrative* Erik Pineda MD - 06/30/2023 10:49 AM EDT Images from the original note were not included. SECTION OF SKULL BASE SURGERY MINIMALLY INVASIVE CRANIAL BASE & PITUITARY SURGERY PROGRAM [facility] [place] CC: Patient Care Team: Jesus Gonzalez [...] and follow-up via virtual visit. Stephanie Moy APRN.RELASTER I have reviewed the progess note obtained [...] which included preparing to see the patient, [id number] patient care, completing clinical documentation, performing a [...] to the prior exam. documented in this encounterCleveland [id number] Instructions* Patient Instructions* Fahad Corey MD - [...] 26, 2023 5:39 PM documented in [address] Hospital10-13-2023 History of Present illness Narrative* Fahad Corey MD - 06/26/2023 5:06 PM EDT [facility] NEW EVALUATION June 26, 2023 5:00 PM I have communicated my name and active licensure. The patient's identity and physical location wereverified at the time of this visit. Either the patient or their legal publications sales representative has been informed of the [...] 26, 2023 5:36 PM documented in [address] [facility]08-30-2023 Miscellaneous Notes* Telephone Encounter - Moira Goodrich APRN.RELASTER - 05/13/2023 1:13 PM EDT Time Frame: Next available Provider: Carmine (possible [facility]) Referring: self Please instruct patient to hand carry/ upload images prior to appt Images also requested via Electronically Dx: Multiple meningiomas with interval growth Multiple meningiomas with interval growth since 2015. MRI done for dizziness. [facility] [address] [place] [address] [place] [address] MRI Report Signed Patient: Kourtney Novak MR#: [id number] : 1975 Acct:[id number] Age/Sex: 47 / F ADM Date: 05/06/23 Loc: Room: Type: [facility] Attending Dr: Jesus Gonzalez MD Copies [...] frontal subcortical white matter. documented in this encounterWilson [address] Hospital07-31-2023 Miscellaneous Notes* Telephone Encounter - Zulema [...] 365 Days Visit Type Date Time Department [facility] 09/28/2023 3:00 PM [facility] Last Ophthalmology Check for Plaquenil [...] Instance) Lab Orders None documented in this encounterWilson [address] Hospital07-31-2023 Miscellaneous Notes* Telephone Encounter - Zulema [...] Visit Type Date Time Department [facility] 09/28/2023 3:00 PM [facility] Last Ophthalmology Check for Plaquenil [...] Instance) Lab Orders None documented in this encounterWilson [address] Hospital07-18-2023 Evaluation note* Encounter Date Diagnosis Assessment [...] Mar,OtherObtain labs from Dr. Gonzalez regarding diabetes [employer] Other 06-26-2023 Miscellaneous Notes* Telephone Encounter - Tory Thomas LPN - 03/09/2023 11:55 AM EDT Refill to soon refilled 01/19/2023 30 capsules with 3 refilles documented [address] [facility]05-08-2023 Miscellaneous Notes* Telephone Encounter - Zulema [...] 365 Days Visit Type Date Time Department [facility] 06/26/2023 10:40 AM [facility] Last Ophthalmology Check for Plaquenil [...] Instance) Lab Orders None documented in this [address] [facility]04-05-2023 Evaluation note* Encounter Date Diagnosis Assessment Notes Treatment Notes Treatment Clinical Notes Dec, 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 May repeat ulnar wrist cortisone injection when needed. Patient instructed on the use of Voltaren Gel in the meantime Dec,Right wrist pain (ICD-10 - M25.531) Dec,Other specified postprocedural states (ICD-10 - Z98.890) [facility] Other 03-30-2023 Miscellaneous Notes* Addendum Note - [...] qd Zulema Wood MD documented in this encounterWilson [address] Hospital01-16-2023 Miscellaneous Notes* Telephone Encounter - Zulema [...] check out. Thank you. 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 Decrease to 81 mg Aspirin once per day x 3 months then begin to wean off. Jul,ther specified postprocedural states (ICD-10 - Z98.890) [facility] Other 11-03-2022 Evaluation note* Encounter Date Diagnosis [...] pain of right shoulder (ICD-10 - M25.511) [facility] Other 10-12-2022 Evaluation note* Encounter Date Diagnosis [...] tolerated the injection well without adverse reaction. Jun,2Acute pain of left shoulder (ICD-10 - M25.512) [facility] Other 07-18-2022 Evaluation note* Encounter Date Diagnosis [...] pain of right shoulder (ICD-10 - M25.511) [facility] Other 05-16-2022 Evaluation note* Encounter Date Diagnosis [...] will order an MRI for futher review. 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 Contiue oralprednisone as prescribed by NOMs MONICA. 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 Continue Aspirin. 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 Risks and benefits of procedure explained to patient; patient verbalizes understanding. 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 Patient would like to proceed with surgical treatment in October [facility] Other 11-29-2021 Evaluation note* Encounter Date Diagnosis Assessment Notes Treatment Notes Treatment Clinical Notes Jul, Carpal tunnel syndrome of right wrist (ICD-10 - G56.01) [facility] Other 10-05-2021 Evaluation note* Encounter Date Diagnosis [...] brace as needed for pain and support [facility] Other 09-22-2021 Evaluation note* Encounter Date Diagnosis [...] of right shoulder (ICD-10 - M25.511) May, e Quervain's tenosynovitis, right (ICD-10 - M65.4) May,Tenosynovitis (ICD-10 - M65.9) May,Tear of right supraspinatus tendon (ICD-10 - M75.101) [facility] Other 06-21-2021 NoteHNO ID: [id number] Author: Hu Blankenship Service: Radiology Author Type: [place] Type: Progress Notes Filed: 03/04/2021 1:11 PM [...] BY: Hu Blankenship March 04, 2021 1:10 PMAvon HospitalConsult note* Clinical Note Date No Information [facility] Work Phone: Discharge summary* Clinical Note Date No Information [facility] Work Phone: Evalugeoer note* Diagnosis Inflammatory arthritis- Primary Unspecified inflammatory polyarthropathy Myalgia Mylagia and myositis, unspecified documented in this encounter [facility] Hospital[facility] noteNo InformationNort Chroma Other evaluausxv noteNo assessment information available [facility] Work Phone: evaludejew note* Diagnosis Inflammatory arthritis- Primary Unspecified inflammatory polyarthropathy Myalgia Mylagia and myositis, unspecified Fibromyalgia Mylagia and myositis, unspecified documented in this encounter [facility]* Diagnosis Medication overuse headache- Primary Drug induced headache, not elsewhere classified Brain mass Unspecified condition of brain Meningioma (HCC) Benign neoplasm of cerebral meninges Chronic daily headache Headache documented in this encounter [facility]* Diagnosis Intracranial meningioma (HCC)- Primary Benign neoplasm of cerebral meninges [facility] Diagnosis Onset Date Resolution Status Osteochondrosis of lunate of right wrist acuteRight wrist painacute [facility] Work Phone: evaluation note* Diagnosis 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) Benign neoplasm of cerebral meninges [facility] Diagnosis Benign neoplasm of meninges (HCC) Benign neoplasm of cerebral meninges [facility] Diagnosis Chronic daily headache Headache [facility] Diagnosis Intracranial meningioma (HCC)- Primary Benign neoplasm of cerebral meninges [facility] Diagnosis Meningioma (HCC)- Primary Benign neoplasm of cerebral meninges Chronic daily headache Headache Intracranial meningioma (HCC) Benign neoplasm of cerebral meninges Preop testing Preoperative examination, unspecified [facility] Diagnosis Onset Date Resolution Status Osteochondrosis of lunate of right wrist acuteRight wrist painacuteAcute pain of right shoulderacuteBiceps tendonitis acute [facility] Work Phone: Evaluation note* Diagnosis Onset Date Resolution Status Acute pain of right shoulder acuteBiceps tendonitisacuteOsteochondrosis of lunate of right wristacuteRight wrist painacute [facility] Work Phone: Evaluation note* Diagnosis Inflammatory arthritis- Primary Unspecified inflammatory polyarthropathy Fibromyalgia Mylagia and myositis, unspecified Medication monitoring encounter Encounter for therapeutic drug monitoring documented in this encounter [facility] note* Diagnosis Tooth infection- Primary Acute apical periodontitis of pulpal origin documented in this encounter [facility] note* Diagnosis Inflammatory arthritis- Primary Unspecified inflammatory polyarthropathy documented in this encounter [facility] note* Diagnosis Onset Date Resolution Status Admit Date Osteochondrosis of lunate of right wrist acuteJanuary 2024 2:48pmRight wrist painacuteJanuary 2024 2:48pm [facility] Work Phone: Evaluation note* Diagnosis Encounter for medication monitoring- Primary Encounter for therapeutic drug monitoring documented in this encounter [facility] note* Diagnosis Fibromyalgia Mylagia and myositis, unspecified documented in this encounter [facility] note* Diagnosis Inflammatory arthritis- Primary Unspecified inflammatory polyarthropathy Fibromyalgia Mylagia and myositis, unspecified Encounter for medication monitoring Encounter for therapeutic drug monitoring documented in this encounter [facility] note* Diagnosis Chronic daily headache Headache documented in this encounter [facility] note* Diagnosis Chronic daily headache Headache Intracranial meningioma (HCC) Benign neoplasm of cerebral meninges Preop testing Preoperative examination, unspecified documented in this encounter [facility] note* Diagnosis Pre-op evaluation- Primary Preoperative [...] Preoperative examination, unspecified documented in this encounter [facility] note* Diagnosis Pre-op evaluation- Primary Preoperative [...] Preoperative examination, unspecified documented in this encounter [facility] note* Diagnosis Pre-op evaluation- Primary Preoperative [...] Associated Problem(s): COPD (chronic obstructive pulmonary disease) ([facility]) Assessment: Stable with nebulizer treatments Denies any SOB Denies any Home oxygen use Lungs clear on exam SpO2 in office today 96% Monitored by PCP * Assessment & Plan Note - Mehul Martin APRN.CNP - 02/14/2025 8:00 AM EDT Associated Problem(s): Fibromyalgia Assessment: Controlled with Cymbalta Monitored by [facility] Diagnosis Meningioma (HCC)- Primary Benign [...] Unspecified inflammatory polyarthropathy [facility] Diagnosis Meningioma (HCC)- Primary Benign [...] of cerebral meninges documented [facility] this encounter [facility]* Diagnosis Meningioma (HCC)- Primary Benign neoplasm of cerebral meninges Intracranial meningioma (HCC) Benign neoplasm of cerebral meninges Preop testing Preoperative examination, unspecified Chronic daily headache Headache 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) COPD (chronic obstructive pulmonary disease) ([facility]) Chronic airway obstruction, not elsewhere classified Diabetes mellitus ([facility]) Type II or unspecified type [...] and myositis, unspecified [facility] Diagnosis Meningioma (HCC)- Primary Benign [...] following unspecified surgery [facility] this [facility] Diagnosis Meningioma (HCC)- Primary Benign [...] daily headache Headache [facility] this [facility]* Diagnosis Meningioma (HCC)- Primary Benign neoplasm of cerebral meninges Intracranial meningioma (HCC) Benign neoplasm of cerebral meninges Preop testing Preoperative examination, unspecified Chronic daily headache Headache 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) COPD (chronic obstructive pulmonary disease) (HCC) Chronic airway obstruction, not elsewhere classified Diabetes mellitus ([facility]) Type II or unspecified type [...] Chronic obstructive pulmonary disease, unspecified COPD type ([facility]) Depression, unspecified depression type Type 2 diabetes mellitus without complication, without long-term current use of insulin ([facility]) Mixed hyperlipidemia Fibromyalgia Mylagia and myositis, unspecified Intracranial meningioma (HCC) Benign neoplasm of cerebral meninges Preop testing Preoperative examination, unspecified MAREK (obstructive sleep apnea) Obstructive sleep apnea (adult) (pediatric) Gastroesophageal reflux disease, unspecified whether esophagitis present Hypothyroidism, unspecified type Class 3 severe obesity due to excess calories with serious comorbidity and body mass index (BMI) of40.0 to 44.9 in adult ([facility]) Inflammatory arthritis Unspecified inflammatory polyarthropathy S/P craniotomy- Primary Other postprocedural status documented [facility] this encounter [facility]* Diagnosis Meningioma (HCC)- Primary Benign neoplasm of cerebral meninges Intracranial meningioma (HCC) Benign neoplasm of cerebral meninges Preop testing Preoperative examination, unspecified Chronic daily headache Headache Neoplasm causing mass effect and brain compression on adjacent structures ([facility]) COPD (chronic obstructive pulmonary disease) ([facility]) Chronic airway obstruction, not elsewhere classified Diabetes mellitus ([facility]) Type II or unspecified type [...] index (BMI) of40.0 to 44.9 in adult ([facility]) Pre-op evaluation- Primary Preoperative examination, unspecified Anxiety Anxiety state, unspecified Chronic obstructive pulmonary disease, unspecified COPD type ([facility]) Depression, unspecified depression type Type 2 diabetes mellitus without complication, without long-term current use of insulin ([facility]) Mixed hyperlipidemia Fibromyalgia Mylagia and myositis, unspecified Intracranial meningioma (HCC) Benign neoplasm of cerebral meninges Preop testing Preoperative examination, unspecified MAREK (obstructive sleep apnea) Obstructive sleep apnea (adult) (pediatric) Gastroesophageal reflux disease, unspecified whether esophagitis present Hypothyroidism, unspecified type Class 3 severe obesity due to excess calories with serious comorbidity and body mass index (BMI) of40.0 to 44.9 in adult ([facility]) Inflammatory arthritis Unspecified inflammatory polyarthropathy Intracranial meningioma (HCC)- Primary Benign neoplasm of cerebral meninges Postprocedural state Other postprocedural status Dizziness and giddiness documented in this encounter [facility]* Diagnosis Meningioma (HCC)- Primary Benign neoplasm [...] index (BMI) of40.0 to 44.9 in adult ([facility]) Pre-op evaluation- Primary Preoperative examination, unspecified Anxiety Anxiety state, unspecified Chronic obstructive pulmonary disease, unspecified COPD type ([facility]) Depression, unspecified depression type Type 2 diabetes mellitus without complication, without long-term current use of insulin ([facility]) Mixed hyperlipidemia Fibromyalgia Mylagia and myositis, unspecified Intracranial meningioma (HCC) Benign neoplasm of cerebral meninges Preop testing Preoperative examination, unspecified MAREK (obstructive sleep apnea) Obstructive sleep apnea (adult) (pediatric) Gastroesophageal reflux disease, unspecified whether esophagitis present Hypothyroidism, unspecified type Class 3 severe obesity due to excess calories with serious comorbidity and body mass index (BMI) of40.0 to 44.9 in adult ([facility]) Inflammatory arthritis Unspecified inflammatory polyarthropathy Meningioma (HCC)- Primary Benign neoplasm of cerebral meninges Chronic daily headache Headache documented in this encounter [facility]* Diagnosis Meningioma (HCC)- Primary Benign neoplasm of cerebral meninges Intracranial meningioma (HCC) Benign neoplasm of cerebral meninges Preop testing Preoperative examination, unspecified Chronic daily headache Headache 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) COPD (chronic obstructive pulmonary disease) ([facility]) Chronic airway obstruction, not elsewhere [...] index (BMI) of40.0 to 44.9 in adult ([facility]) Pre-op evaluation- Primary Preoperative examination, unspecified Anxiety Anxiety state, unspecified Chronic obstructive pulmonary disease, unspecified COPD type ([facility]) Depression, unspecified depression type Type 2 diabetes mellitus without complication, without long-term current use of insulin ([facility]) Mixed hyperlipidemia Fibromyalgia Mylagia and myositis, unspecified Intracranial meningioma ([facility]) Benign neoplasm of cerebral meninges Preop testing Preoperative examination, unspecified MAREK (obstructive sleep apnea) Obstructive sleep apnea (adult) (pediatric) Gastroesophageal reflux disease, unspecified whether esophagitis present Hypothyroidism, unspecified type Class 3 severe obesity due to excess calories with serious comorbidity and body mass index (BMI) of40.0 to 44.9 in adult ([facility]) Inflammatory arthritis Unspecified inflammatory polyarthropathy Chronic daily headache Headache [facility] this encounter [facility]* Diagnosis Fibromyalgia Unspecified myalgia and myositis documented in this encounter [facility]* Diagnosis Rib pain on right side- Primary Sprain of costal cartilage, initial encounter Rib pain on right side documented in this encounter [facility] HealthcareEvaluation note* Diagnosis Recurrent sinus infections- Primary Unspecified sinusitis (chronic) Obstructive sleep apnea Obstructive sleep apnea (adult) (pediatric) documented in this encounter [facility] HealthcareHistory and physical note* Clinical Note Date No Information [facility] Work Phone: Hishzst general Narrative - Reported* Type Description Date Medical History GERD Medical HistorygastroparesisMedical HistorybipolarMedical HistoryDM IISurgical Historycarpal tunnelSurgical Historycystectomy-left breastSurgical Historyright neuroplasty, ulnar nerve at elbow08/2020[facility] Other History general Narrative - Reported* Type Description Date Medical History GERD Medical HistorygastroparesisMedical HistorybipolarMedical HistoryDM IIMedical HistoryCOPDSurgical Historycarpal tunnelSurgical Historycystectomy-left breast Surgical Historyright neuroplasty, ulnar nerve at elbow08/2020Surgical History appendectomy09/2021Hospitalization Historysee aboveH[facility]ization [facility] Other History general Narrative - Reported* Type Description Date Medical History GERD Medical HistorygastroparesisMedical HistorybipolarMedical HistoryDM IIMedical HistoryCOPDSurgical Historycarpal tunnelSurgical Historycystectomy-left breast Surgical Historyright neuroplasty, ulnar nerve at elbow08/2020Surgical History appendectomy1/2Surgical Historyright wrist PIN/core decompression Hospitalization Historysee aboveHospitalization [facility] Other Hisndtl general Narrative - Reported* Type Description Date Medical History GERD Medical HistorygastroparesisMedical HistorybipolarMedical HistoryDM IIMedical HistoryCOPDSurgical Historycarpal tunnelSurgical Historycystectomy-left breast Surgical Historyright neuroplasty, ulnar nerve at elbow08/2020Surgical History appendectomy1/2Surgical Historyright wrist PIN/core decompressionSurgical Historycubital tunnelHospitalization Historysee aboveHospitalization HistoryCOP[facility] Other History of Past illness Narrative* Condition Effective Dates (start - stop) O utcome No Information [facility] Work Phone: History of Present illness Narrative* Encounter Date Complaint History Of Prese nt Illness No Information [facility] Work Phone: Hospital Discharge instructions Additional Instructions Apply ice for the next 24 hours and then rotate heat Monitor your blood pressure at home and take the readings to your PCP Take the steroids that you were prescribed [place] for severe pain You cannot work or drive when taking [place] Breathing exercises as may you discussed to prevent further complications Follow with your [facility]CP [facility] Work Phone: Instructions* Date Instruction Additional Infor mation No Information [facility] Work Phone: Progress note* Clinical Note Date No Information [facility] Work Phone: Reason for referral (narrative)No reason for referral information availableL[facility] Work Phone: Reason for referral (narrative)* Reason For Referral No Information [facility] Work Phone: Reason for visit Narrative* MRI/CT (Routine) - Closed SpecialtyDiagnoses / ProceduresReferred By ContactReferred To ContactMR IMAGING Diagnoses Intracranial meningioma (HCC) Preop testing Procedures MRI BRAIN WO/W IVCON MRI BRAIN BRAIN STEM W/O W/CONTRAST MATERIAL Erik Pineda MD [address] [place] [address] Phone: tel: fax: [facility] [place] [id number] Referral IDStatusReasonStart DateExpiration DateVisits RequestedVisits [id number] Auto-Generated Referral / [facility] Narrative - Reported* System Pos/Neg Findings No Information [facility] Work Phone: Summary Purpose Family History No [...] in left shoulder November 03, 2024 8:26am 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 November 03 9:12am [...] in left shoulder November 03, 2024 8:26am 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5,R73.09,D64.9,E55.9,I10 May 152024 7:02am M25.511 - Pain in right shoulder [facility] 2024 10:38am NEW RT BICEP PAIN NX May 30 1:21pm rt side rib area pain June 05 8:09pm Chief Complaint Admit Date 6-8 WEEKS March 22, 2025 3:55p m E78.5,R73.09,D64.9,E55.9,I10 May 152024 7:02am M25.511 - Pain in right shoulder [facility] 2024 10:38am NEW RT BICEP PAIN NX May 30 1:21pm rt side rib area pain June 05 8:09pm E04.1 June 13, 2025 2:50pm Chief Complaint Admit Date 6-8 WEEKS March 22, 2025 3:55p m E78.5,R73.09,D64.9,E55.9,I10 May 152024 7:02am M25.511 - Pain in right shoulder [facility] 2024 10:38am NEW RT BICEP PAIN NX May 30 1:21pm rt side rib area pain June 05 8:09pm E04.1 June 13, 2025 2:50pm R07.89 June 19, 2025 3: 46pm Chief Complaint Admit Date E78.5,R73.09,D64.9,E55.9,I10 May 152024 7:02am M25.511 - Pain in right shoulder [facility] 2024 10:38am NEW RT BICEP PAIN NX May 30 1:21pm rt side rib area pain June 05 8:09pm E04.1 June 13, 2025 2:50pm R07.89 June 19, 2025 3: 46pm E28.39 June 26, 2025 1 :55pm Reason for Visit Admit Date Tear of right supraspinatus tendon [facility] 2024 1:21pm Chief Complaint Admit Date E78.5,R73.09,D64.9,E55.9,I10 May 152024 7:02am M25.511 - Pain in right shoulder [facility] 2024 10:38am NEW RT BICEP PAIN NX May 30 1:21pm rt side rib area pain June 05 8:09pm E04.1 June 13, 2025 2:50pm R07.89 June 19, 2025 3: 46pm E28.39 June 26, 2025 1 :55pm M54.14 June 27, 2025 5 :15pm Chief Complaint Admit Date E78.5,R73.09,D64.9,E55.9,I10 May 152024 7:02am M25.511 - [facility] NEW RT BICEP PAIN NX May 30 1:21pm rt side rib area pain June 05 8:09pm E04.1 June 13, 2025 2:50pm R07.89 June 19, 2025 3: 46pm E28.39 June 26, 2025 1 :55pm M54.14 June 27, 2025 5 :15pm 3 MONTHS July 12, 2025 3 :22pm 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 July 12, 2025 3:45pm Reason for Visit Admit Date Tear of right supraspinatus tendon [facility] 2024 1:21pm Osteochondrosis of lunate of right wrist July 12, 2025 3:22pm Right wrist pain July 12, 2025 3 :22pm Chief Complaint Admit Date E78.5,R73.09,D64.9,E55.9,I10 May 152024 7:02am M25.511 - [facility] 10:38am NEW RT BICEP PAIN [...] 3:45pm R01.1 July 17, 2025 1 :33pm Additional Source Comments INFORMATION SOURCE (unrecogn ized section and content) DATE CREATED AUTHOR 03/10/2018 [facility] DATE CREATED AUTHOR AUTHOR'S ORGANIZ ATION 03/05/2021 [facility] DATE CREATED AUTHOR AUTHOR'S ORGANIZ ATION 10/13/2022 [facility] DATE CREATED AUTHOR AUTHOR'S ORGANIZ ATION 02/01/2024 [facility] DATE CREATED AUTHOR AUTHOR'S ORGANIZ ATION 05/31/2025 [facility] DATE CREATED AUTHOR AUTHOR'S ORGANIZ ATION 06/24/2025 [facility] DATE CREATED AUTHOR AUTHOR'S ORGANIZ ATION 07/03/2025 [facility] DATE CREATED AUTHOR AUTHOR'S ORGANIZ ATION 07/11/2025 [facility] [address] DATE CREATED AUTHOR AUTHOR'S ORGANIZ ATION 07/20/2025 [facility] Source Comments (unrecognize d section and content) In the event this informatio n is protected by the Federal Confidentiality of Alcohol and Drug Abuse Patient Records regulations: The Federal rules restrict any use of the information to criminally investigate or prosecute any alcohol or drug abuse patient.[facility] HospitalIn the event this information is protected by the Federal Confidentiality of Alcohol and Drug Abuse Patient Records regulations: The Federal rules restrict any use of the information to criminally investigate or prosecute any alcohol or drug abuse patient.[facility] [address] HospitalIn the event this information is protected by the Federal Confidentiality of Alcohol and Drug Abuse Patient Records regulations: The Federal rules restrict any use of the information to criminally investigate or prosecute any alcohol or drug abuse patient.[facility] HospitalIn the event this information is protected by the Federal Confidentiality of Alcohol and Drug Abuse Patient Records regulations: The Federal rules restrict any use of the information to criminally investigate or prosecute any alcohol or drug abuse patient.[facility] HospitalIn the event this information is protected by the Federal Confidentiality of Alcohol and Drug Abuse Patient Records regulations: The Federal rules restrict any use of the information to criminally investigate or prosecute any alcohol or drug abuse patient.[facility] HospitalIn the event this information is protected by the Federal Confidentiality of Alcohol and Drug Abuse Patient Records regulations: The Federal rules restrict any use of the information to criminally investigate or prosecute any alcohol or drug abuse patient.[facility] HospitalIn the event this information is protected by the Federal Confidentiality of Alcohol and Drug Abuse Patient Records regulations: The Federal rules restrict any use of the information to criminally investigate or prosecute any alcohol or drug abuse patient.[facility] HospitalIn the event this information is protected by the Federal Confidentiality of Alcohol and Drug Abuse Patient Records regulations: The Federal rules restrict any use of the information to criminally investigate or prosecute any alcohol or drug abuse patient.[facility] HospitalIn the event this information is protected by the Federal Confidentiality of Alcohol and Drug Abuse Patient Records regulations: The Federal rules restrict any use of the information to criminally investigate or prosecute any alcohol or drug abuse patient.[facility] HospitalIn the event this information is protected by the Federal Confidentiality of Alcohol and Drug Abuse Patient Records regulations: The Federal rules restrict any use of the information to criminally investigate or prosecute any alcohol or drug abuse patient.[facility] HospitalIn the event this information is protected by the Federal Confidentiality of Alcohol and Drug Abuse Patient Records regulations: The Federal rules restrict any use of the information to criminally investigate or prosecute any alcohol or drug abuse patient.[facility] HospitalIn the event this information is protected by the Federal Confidentiality of Alcohol and Drug Abuse Patient Records regulations: The Federal rules restrict any use of the information to criminally investigate or prosecute any alcohol or drug abuse patient.[facility] HospitalIn the event this information is protected by the Federal Confidentiality of Alcohol and Drug Abuse Patient Records regulations: The Federal rules restrict any use of the information to criminally investigate or prosecute any alcohol or drug abuse patient.[facility] HospitalIn the event this information is protected by the Federal Confidentiality of Alcohol and Drug Abuse Patient Records regulations: The Federal rules restrict any use of the information to criminally investigate or prosecute any alcohol or drug abuse patient.[facility] HospitalIn the event this information is protected by the Federal Confidentiality of Alcohol and Drug Abuse Patient Records regulations: The Federal rules restrict any use of the information to criminally investigate or prosecute any alcohol or drug abuse patient.[facility] HospitalIn the event this information is protected by the Federal Confidentiality of Alcohol and Drug Abuse Patient Records regulations: The Federal rules restrict any use of the information to criminally investigate or prosecute any alcohol or drug abuse patient.[facility] HospitalIn the event this information is protected by the Federal Confidentiality of Alcohol and Drug Abuse Patient Records regulations: The Federal rules restrict any use of the information to criminally investigate or prosecute any alcohol or drug abuse patient.[facility] HospitalIn the event this information is protected by the Federal Confidentiality of Alcohol and Drug Abuse Patient Records regulations: The Federal rules restrict any use of the information to criminally investigate or prosecute any alcohol or drug abuse patient.[facility] HospitalIn the event this information is protected by the Federal Confidentiality of Alcohol and Drug Abuse Patient Records regulations: The Federal rules restrict any use of the information to criminally investigate or prosecute any alcohol or drug abuse patient.[facility] HospitalIn the event this information is protected by the Federal Confidentiality of Alcohol and Drug Abuse Patient Records regulations: The Federal rules restrict any use of the information to criminally investigate or prosecute any alcohol or drug abuse patient.[facility] [address] HospitalIn the event this information is protected by the Federal Confidentiality of Alcohol and Drug Abuse Patient Records regulations: The Federal rules restrict any use of the information to criminally investigate or prosecute any alcohol or drug abuse patient.[facility] HospitalIn the event this information is protected by the Federal Confidentiality of Alcohol and Drug Abuse Patient Records regulations: The Federal rules restrict any use of the information to criminally investigate or prosecute any alcohol or drug abuse patient.[facility] HospitalIn the event this information is protected by the Federal Confidentiality of Alcohol and Drug Abuse Patient Records regulations: The Federal rules restrict any use of the information to criminally investigate or prosecute any alcohol or drug abuse patient.[facility] HospitalIn the event this information is protected by the Federal Confidentiality of Alcohol and Drug Abuse Patient Records regulations: The Federal rules restrict any use of the information to criminally investigate or prosecute any alcohol or drug abuse patient.[facility] HospitalIn the event this information is protected by the Federal Confidentiality of Alcohol and Drug Abuse Patient Records regulations: The Federal rules restrict any use of the information to criminally investigate or prosecute any alcohol or drug abuse patient.[facility] HospitalIn the event this information is protected by the Federal Confidentiality of Alcohol and Drug Abuse Patient Records regulations: The Federal rules restrict any use of the information to criminally investigate or prosecute any alcohol or drug abuse patient.[facility] HospitalIn the event this information is protected by the Federal Confidentiality of Alcohol and Drug Abuse Patient Records regulations: The Federal rules restrict any use of the information to criminally investigate or prosecute any alcohol or drug abuse patient.[facility] HospitalIn the event this information is protected by the Federal Confidentiality of Alcohol and Drug Abuse Patient Records regulations: The Federal rules restrict any use of the information to criminally investigate or prosecute any alcohol or drug abuse patient.[facility] HospitalIn the event this information is protected by the Federal Confidentiality of Alcohol and Drug Abuse Patient Records regulations: The Federal rules restrict any use of the information to criminally investigate or prosecute any alcohol or drug abuse patient.[facility] HospitalIn the event this information is protected by the Federal Confidentiality of Alcohol and Drug Abuse Patient Records regulations: The Federal rules restrict any use of the information to criminally investigate or prosecute any alcohol or drug abuse patient.[facility] HospitalIn the event this information is protected by the Federal Confidentiality of Alcohol and Drug Abuse Patient Records regulations: The Federal rules restrict any use of the information to criminally investigate or prosecute any alcohol or drug abuse patient.[facility] HospitalIn the event this information is protected by the Federal Confidentiality of Alcohol and Drug Abuse Patient Records regulations: The Federal rules restrict any use of the information to criminally investigate or prosecute any alcohol or drug abuse patient.[facility] HospitalIn the event this information is protected by the Federal Confidentiality of Alcohol and Drug Abuse Patient Records regulations: The Federal rules restrict any use of the information to criminally investigate or prosecute any alcohol or drug abuse patient.[facility] HospitalIn the event this information is protected by the Federal Confidentiality of Alcohol and Drug Abuse Patient Records regulations: The Federal rules restrict any use of the information to criminally investigate or prosecute any alcohol or drug abuse patient.[facility] HospitalIn the event this information is protected by the Federal Confidentiality of Alcohol and Drug Abuse Patient Records regulations: The Federal rules restrict any use of the information to criminally investigate or prosecute any alcohol or drug abuse patient.[facility] HospitalIn the event this information is protected by the Federal Confidentiality of Alcohol and Drug Abuse Patient Records regulations: The Federal rules restrict any use of the information to criminally investigate or prosecute any alcohol or drug abuse patient.[facility] HospitalIn the event this information is protected by the Federal Confidentiality of Alcohol and Drug Abuse Patient Records regulations: The Federal rules restrict any use of the information to criminally investigate or prosecute any alcohol or drug abuse patient.[facility] HospitalIn the event this information is protected by the Federal Confidentiality of Alcohol and Drug Abuse Patient Records regulations: The Federal rules restrict any use of the information to criminally investigate or prosecute any alcohol or drug abuse patient.[facility] HospitalIn the event this information is protected by the Federal Confidentiality of Alcohol and Drug Abuse Patient Records regulations: The Federal rules restrict any use of the information to criminally investigate or prosecute any alcohol or drug abuse patient.[facility] HospitalIn the event this information is protected by the Federal Confidentiality of Alcohol and Drug Abuse Patient Records regulations: The Federal rules restrict any use of the information to criminally investigate or prosecute any alcohol or drug abuse patient.[facility] HospitalIn the event this information is protected by the Federal Confidentiality of Alcohol and Drug Abuse Patient Records regulations: The Federal rules restrict any use of the information to criminally investigate or prosecute any alcohol or drug abuse patient.[facility] HospitalIn the event this information is protected by the Federal Confidentiality of Alcohol and Drug Abuse Patient Records regulations: The Federal rules restrict any use of the information to criminally investigate or prosecute any alcohol or drug abuse patient.[facility] HospitalIn the event this information is protected by the Federal Confidentiality of Alcohol and Drug Abuse Patient Records regulations: The Federal rules restrict any use of the information to criminally investigate or prosecute any alcohol or drug abuse patient.[facility] HospitalIn the event this information is protected by the Federal Confidentiality of Alcohol and Drug Abuse Patient Records regulations: The Federal rules restrict any use of the information to criminally investigate or prosecute any alcohol or drug abuse patient.[facility] HospitalIn the event this information is protected by the Federal Confidentiality of Alcohol and Drug Abuse Patient Records regulations: The Federal rules restrict any use of the information to criminally investigate or prosecute any alcohol or drug abuse patient.[facility] HospitalIn the event this information is protected by the Federal Confidentiality of Alcohol and Drug Abuse Patient Records regulations: The Federal rules restrict any use of the information to criminally investigate or prosecute any alcohol or drug abuse patient.[facility] HospitalIn the event this information is protected by the Federal Confidentiality of Alcohol and Drug Abuse Patient Records regulations: The Federal rules restrict any use of the information to criminally investigate or prosecute any alcohol or drug abuse patient.[facility] HospitalIn the event this information is protected by the Federal Confidentiality of Alcohol and Drug Abuse Patient Records regulations: The Federal rules restrict any use of the information to criminally investigate or prosecute any alcohol or drug abuse patient.[facility] HospitalIn the event this information is protected by the Federal Confidentiality of Alcohol and Drug Abuse Patient Records regulations: The Federal rules restrict any use of the information to criminally investigate or prosecute any alcohol or drug abuse patient.[facility] HospitalIn the event this information is protected by the Federal Confidentiality of Alcohol and Drug Abuse Patient Records regulations: The Federal rules restrict any use of the information to criminally investigate or prosecute any alcohol or drug abuse patient.[facility] HospitalIn the event this information is protected by the Federal Confidentiality of Alcohol and Drug Abuse Patient Records regulations: The Federal rules restrict any use of the information to criminally investigate or prosecute any alcohol or drug abuse patient.[facility] HospitalIn the event this information is protected by the Federal Confidentiality of Alcohol and Drug Abuse Patient Records regulations: The Federal rules restrict any use of the information to criminally investigate or prosecute any alcohol or drug abuse patient.[facility] HospitalIn the event this information is protected by the Federal Confidentiality of Alcohol and Drug Abuse Patient Records regulations: The Federal rules restrict any use of the information to criminally investigate or prosecute any alcohol or drug abuse patient.[facility] HospitalIn the event this information is protected by the Federal Confidentiality of Alcohol and Drug Abuse Patient Records regulations: The Federal rules restrict any use of the information to criminally investigate or prosecute any alcohol or drug abuse patient.[facility] HospitalIn the event this information is protected by the Federal Confidentiality of Alcohol and Drug Abuse Patient Records regulations: The Federal rules restrict any use of the information to criminally investigate or prosecute any alcohol or drug abuse patient.[facility] HospitalIn the event this information is protected by the Federal Confidentiality of Alcohol and Drug Abuse Patient Records regulations: The Federal rules restrict any use of the information to criminally investigate or prosecute any alcohol or drug abuse patient.[facility] HospitalIn the event this information is protected by the Federal Confidentiality of Alcohol and Drug Abuse Patient Records regulations: The Federal rules restrict any use of the information to criminally investigate or prosecute any alcohol or drug abuse patient.[facility] HospitalIn the event this information is protected by the Federal Confidentiality of Alcohol and Drug Abuse Patient Records regulations: The Federal rules restrict any use of the information to criminally investigate or prosecute any alcohol or drug abuse patient.[facility] HospitalIn the event this information is protected by the Federal Confidentiality of Alcohol and Drug Abuse Patient Records regulations: The Federal rules restrict any use of the information to criminally investigate or prosecute any alcohol or drug abuse patient.[facility] HospitalIn the event this information is protected by the Federal Confidentiality of Alcohol and Drug Abuse Patient Records regulations: The Federal rules restrict any use of the information to criminally investigate or prosecute any alcohol or drug abuse patient.[facility] HospitalIn the event this information is protected by the Federal Confidentiality of Alcohol and Drug Abuse Patient Records regulations: The Federal rules restrict any use of the information to criminally investigate or prosecute any alcohol or drug abuse patient.[facility] HospitalIn the event this information is protected by the Federal Confidentiality of Alcohol and Drug Abuse Patient Records regulations: The Federal rules restrict any use of the information to criminally investigate or prosecute any alcohol or drug abuse patient.[facility] HospitalIn the event this information is protected by the Federal Confidentiality of Alcohol and Drug Abuse Patient Records regulations: The Federal rules restrict any use of the information to criminally investigate or prosecute any alcohol or drug abuse patient.[facility] HospitalIn the event this information is protected by the Federal Confidentiality of Alcohol and Drug Abuse Patient Records regulations: The Federal rules restrict any use of the information to criminally investigate or prosecute any alcohol or drug abuse patient.[facility] HospitalIn the event this information is protected by the Federal Confidentiality of Alcohol and Drug Abuse Patient Records regulations: The Federal rules restrict any use of the information to criminally investigate or prosecute any alcohol or drug abuse patient.[facility] HospitalIn the event this information is protected by the Federal Confidentiality of Alcohol and Drug Abuse Patient Records regulations: The Federal rules restrict any use of the information to criminally investigate or prosecute any alcohol or drug abuse patient.[facility] HospitalIn the event this information is protected by the Federal Confidentiality of Alcohol and Drug Abuse Patient Records regulations: The Federal rules restrict any use of the information to criminally investigate or prosecute any alcohol or drug abuse patient.[facility] Reason for Visit (unrecogniz ed section and content) ReasonCommentsNew PatientReasonCommentsFollow UpReasonCommentsOrdersPlaquenil ReasonCommentsRefill RequestReasonOnset DateCommentsRefill Bpkcyaa3603/07/2023 ReasonOnset DateCommentsRefill Jprhjda4904/13/2023ReasonCommentsTRIAGEReason CommentsHeadacheSpecialtyDiagnoses / ProceduresReferred By ContactReferred To Contact Diagnoses Brain mass Procedures CONSULT TO HEADACHE CLINIC OFFICE/OUTPATIENT [facility] 60-74 MINUTES Laron Lou DO, PhD [address] [facility] [address] [place] [address] Referral IDStatusReasonStart DateExpiration DateVisits RequestedVisits [id number] PCP Requested Referral /[id number] UpdateDiscuss Surgery Marcheason CommentsConsultReasonCommentsCare Coordinationfollow upReasonOnset DateComments Refill Fwnqiox04/27/2024ReasonOnset DateCommentsRefill Yroqzbw29/29/2024Reason CommentsLab Orders/FAXReasonCommentsSchedule SurgeryReasonCommentsSchedule SurgerySurgery PlanningReasonOnset DateCommentsRefill Pqdncve0601/27/2024Specialty Diagnoses / ProceduresReferred By ContactReferred To ContactCT IMAGING Diagnoses 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) Procedures CT BRAIN STEREOLOCAL WO IVCON CT GUIDANCE STEREOTACTIC LOCALIZATION Erik Pineda MD [address] [place] [address] Ct Imaging [place] [address] Referral IDStatusReSt DateExpiration DateVisits RequestedVisits [id number] Auto-Generated Referral [id number] / ProceduresReferred By ContactReferred To ContactMR IMAGING Diagnoses Benign neoplasm of meninges (HCC) Procedures MRI SKULL BASE WO/W IVCON MRI BRAIN BRAIN STEM W/O W/CONTRAST MATERIAL Erik Pineda MD [address] [place] [address] Mr [facility] [place] [address] Referral IDStatusReasonSt DateExpiration DateVisits RequestedVisits [id number] Auto-Generated Referral [id number]ePmdcfgDwjsiyobSqrjpcanelm PatientPre op consentReasonCommentsDaily HeadacheReasonCommentsepidural steroid injection ReasonCommentsInsurance AuthorizationRobaxin [place] - Medicare / [employer]. ReasonOnset DateCommentsRefill Myuihoq56/11/2024ReasonCommentsJoint PainReason CommentsResultsReasonOnset DateCommentsRefill Wlaqrvi49/15/2024ReasonComments ResultsLab results from [facility] CenterasonCommentsCare Coordinator - OtherLab order problemReasonOnset DateCommentsRefill Request 10/10/2024ReasonCommentsCare CoordinationMyChart Follow up - Surgery Planning ReasonCommentsMed Change RequestReasonCommentsEstablished PatientReasonComments PreOp CallReasonCommentsSurgical FollowupReasonCommentsPatient UpdateReason CommentsAnesthesia ConsultSpecialtyDiagnoses / ProceduresReferred By Contact Referred To Contact Diagnoses Intracranial meningioma (HCC) Preop testing Procedures REFER TO [facility] - PREOPERATIVE OPTIMIZATION OFFICE/OUTPATIENT [facility] 60 MINUTES Erik Pineda MD [address] [place] [address] Phone: tel: fax: Referral IDStatusReasonStart DateExpiration DateVisits RequestedVisits [id number] PCP Requested Referral [id number]m PatientReasonCommentsPost OpReason Onset DateCommentsRefill Bbcpbqu5403/15/2025ReasonOnset DateCommentsRefill Request 03/20/2025ReasonCommentsHeadacheReasonCommentsReferralCOPD and chronic fatigue and inflammation elevation in blood work thinks she has immune issues Care Teams (unrecognized sec tion and content) Team Status: Active Member Role Status David Gonzalez MD Primary Care Provider Active Team Status: Inactive Member Role Status David Gonzalez MD Primary Care Provider Active Marcos Gibsonatrium health stanly ProviderActive Team Status: Inactive Member Role Status David Gonzalez MD Primary Care Provider, Attending Pr luis Active Team MemberRelationshipSpecialtyStart DateEnd Jesus Gonzalez MD [address] [place] [address] [facility]01/14/21 Team Status: Inactive Member Role Status Dates Jesus Gonzalez MD Primary Care Provider Active Elyssa Gomes MDAttrebecca ProviderActive Team Status: Inactive Member Role Status Dates Jesus Gonzalez MD Primary Care Provider Active Gunner Cummings DPM MSAttending ProviderActiveTeam MemberRelationship SpecialtyStart DateEnd Date Jesus Gonzalez MD [address] [place] [address] ReferringFamily Medicine01/14/21Team MemberRelationshipSpecialtyStart DateEnd Date Jesus Gonzalez MD [address] [place] [address] ReferringFamily Medicine01/14/21Team MemberRelationshipSpecialtyStart DateEnd Date Jesus Gonzalez MD ReferringFamily Medicine01/14/21Team MemberRelationshipSpecialtyStart DateEnd Date Jesus Gonzalez MD ReferringFamily Medicine01/14/21Team MemberRelationshipSpecialtyStart DateEnd Date Jesus Gonzalez MD ReferringFamily Medicine01/14/21Team MemberRelationshipSpecialtyStart DateEnd Date Jesus Gonzalez MD ReferringFamily Medicine01/14/21Team MemberRelationshipSpecialtyStart DateEnd Date Jesus Gonzalez MD ReferringFamily Medicine01/14/21 Team Status: Inactive Member Role Status David Gonzalez MD Primary Care Provider Active Zulema Mckinney ([facility]) , APRNAttending ProviderActiveTeam MemberRelationship SpecialtyStart DateEnd Date Jesus Gonzalez MD [address] [place] [facility] [place] [address] PCP - GeneralFamily Medicine05/12/23 Jesus Gonzalez MD ReferringFamily Medicine01/14/21 Jesus Gonzalez MD [address] [facility] [place] [address] ReferringFamily Medicine05/12/23Team MemberRelationshipSpecialtyStart DateEnd Date Jesus Gonzalez MD [address] [facility] [place] [address] PCP - GeneralFamily Medicine05/12/23 Jesus Gonzalez MD ReferringFamily Medicine01/14/21 Jesus Gonzalez MD [address] [facility] [place] [address] ReferringFamily Medicine05/12/23Team MemberRelationshipSpecialtyStart DateEnd Date Jesus Gonzalez MD [address] [facility] [place] [address] PCP - GeneralFamily Medicine05/12/23 Jesus Gonzalez MD ReferringFamily Medicine01/14/21 Jseus Gonzalez MD [address] [facility] [place] [address] ReferringFamily Medicine05/12/23Team MemberRelationshipSpecialtyStart DateEnd Date Jesus Gonzalez MD [address] [place] [facility] [place] [address] PCP - Generalmily Medicine05/12/23 Jesus Gonzalez MD ReferringFamily Medicine01/14/21 Jesus Gonzalez MD [address] [place] [facility] [place] [address] [facility]05/[facility]/23Te MemberRelationshipSpecialtyStart DateEnd Jesus Gonzalez MD [address] [place] [facility] [place] [address] PCP - Generalmi Medicine05/12/23 Jesus Gonzalez MD ReferringFamily Medicine01/14/21 Jesus Gonzalez MD [address] [place] [facility] [place] [address] ReferringFamily Medicine05/12/23Team MemberRelationshipSpecialtyStart DateEnd Date Jesus Gonzalez MD [address] [facility] [place] [address] PCP - Generalmi Medicine05/12/23 Jesus Gonzalez MD ReferringFamily Medicine01/14/21 Jesus Gonzalez MD [address] [facility] [place] [address] ReferringFamily Medicine05/12/23Team MemberRelationshipSpecialtyStart DateEnd Jesus Gonzalez MD [address] [place] [address] PCP - GeneralFamily Medicine05/12/23 Jesus Gonzalez MD ReferringFamily Medicine01/14/21 Jesus Gonzalez MD [address] [place] [address] ReferringFamily Medicine05/12/23Team MemberRelationshipSpecialtyStart DateEnd [facility] Jesus Gonzalez MD [address] [place] [address] PCP - GeneralFamily Medicine05/12/23 Jesus Gonzalez MD ReferringFamily Medicine01/14/21 Jesus Gonzalez MD [address] [place] [address] ReferringFamily Medicine05/12/23Team MemberRelationshipSpecialtyStart End Date Jesus Gonzalez MD [address] [facility] [place] [address] PCP - GeneralFamily Medicine05/12/23 Jesus Gonzalez MD ReferringFamily Medicine01/14/21 Jesus Gonzalez MD [address] [place] [address] [facility]05/12/23 Team Status: Inactive Member Role Status David Gonzalez MD Primary Care Provide r, Attending Provider Active Start: November 11, 2023 End: November 11, 2023 Team Status: Inactive Member Role Status Dates Jesus Gonzalez MD Primary Care Provider Active Start: November 25, 2023 End: November 24Sanchez Horn ProviderActiveStart: November 25, 2023 End: November 25, 2023 Team Status: Inactive Member Role Status David Gonzalez MD Primary Care Provider Active Start: January 08, 2024 End: January 08, 2024SuSanchez Davila ProviderActiveStart: January 08, 2024 End: January 08, 2024Team MemberRelationshipSpecialtyStart DateEnd Date Jesus Gonzalez MD [address] [place] [address] PCP - Generalmily Medicine05/12/23 Jesus Gonzalez MD [facility]erring[facility]01/14/21 Jesus Gonzalez MD [address] [place] [address] [facility]erring[facility]05/12/23Team MemberRelationshipSpecialtyStart DateEnd Date Jesus Gonzalez MD [address] [place] [address] PCP - GeneralFamily Medicine05/12/23 Jesus Gonzalez MD [facility]01/14/21 Jesus Gonzalez MD [address] [facility] [place] [address] [facility]05/12/23Team MemberRelationshipSpecialtyStart DateEnd Date Jesus Gonzalez MD [address] [place] [address] PCP - [facility]05/12/23 Jesus Gonzalez MD [facility]01/14/21 Jesus Gonzalez MD [address] [facility] [place] [address] [facility]05/12/23 Team Status: Inactive Member Role Status [...] 2024 End: March 04, 2024Team MemberRelationshipSpecialtyStart DateEnd Date Jesus Gonzalez MD [address] [facility] [place] [address] PCP - GeneralFamily Medicine05/12/23 Jesus Gonzalez MD ReferringFamily Medicine01/14/21 Jesus Gonzalez MD [address] [facility] [place] [address] [facility]05/12/23Team MemberRelationshipSpecialtyStart DateEnd Date Jesus Gonzalez MD [address] [facility] [place] [address] [facility] - [facility] Medicine05/12/23 Jesus Gonzalez MD [facility]01/14/21 Jesus Gonzalez MD [address] [facility] [place] [address] [facility]erring[facility]05/12/23Team MemberRelationshipSpecialtyStart End Jesus Gonzalez MD [address] [facility] [place] [address] [facility] - [facility] Medicine05/12/23 Jesus Gonzalez MD [facility]01/14/21 Jesus Gonzalez MD [address] [facility] [place] [address] [facility]erring[facility]05/12/23 Team Status: Inactive Member Role Status Dates Jesus Gonzalez MD Primary Care Provide r, Attending Provider Active Start: May 12, 2024 End: May 12, 2024Team MemberRelationshipSpecialtyStart DateEnd Date Jesus Gonzalez MD [address] [facility] [place] [address] PCP - GeneralFamily Medicine05/12/23 Jesus Gonzalez MD ReferringFamily Medicine01/14/21 Jesus Gonzalez MD [address] [facility] [place] [address] Referringmi Medicine05/12/23Team MemberRelationshipSpecialtyStart DateEnd Jesus Gonzalez MD [address] [facility] [place] [address] PCP - GeneralFamily Medicine05/12/23 Jesus Gonzalez MD ReferringFami Medicine01/14/21 Jesus Gonzalez MD [address] [facility] [place] [address] [facility]erringFaSouth[facility]05/12/23 Team Status: Inactive Member Role Status Dates Jesus Gonzalez MD Primary Care Provider Active Start: June 21, 2024 End: June 21Sanchez Horn ProviderActiveStart: June 21, 2024 End: June 21, 2024 Team Status: Inactive Member Role Status Dates Jesus Gonzalez MD Primary Care Provide rSkylar Provider Active Start: June 22, 2024 End: June 22, 2024Team MemberRelationshipSpecialtyStart DateEnd Date Jesus Gonzalez MD [address] [place] [address] PCP - GeneralFamily Medicine03/12/23Team MemberRelationshipSpecialtyStart DateEnd Date Jesus Gonzalez MD [address] [place] [address] PCP - [facility]05/12/23 Jesus Gonzalez MD [facility]/21 Jesus Gonzalez MD [address] [place] [address] [facility]05/12/23 Team Status: Inactive Member Role Status David Gonzalez MD Primary Care Provider Active Start: September 16, 2024 End: September 16, 2024Referral SelfAttending ProviderActiveStart: September 16, 2024 End: September 16, 2024 Team Status: Inactive Member Role Status David Gonzalez MD Primary Care Provider Active Start: September 20, 2024 End: September 20, 2024SusaMarcos Welchending ProviderActiveStart: September 20, 2024 End: September 20, 2024 Team Status: Inactive Member Role Status David Gonzalez MD Primary Care Provider Active Start: September 27, 2024 End: September 27ollMarcos Moreauending ProviderActiveStart: September 27, 2024 End: September 27, 2024Team MemberRelationshipSpecialtyStart DateEnd Date Jesus Gonzalez MD [address] [place] [address] PCP - [facility]05/12/23 Jesus Gonzalez MD [facility]01/14/21 Jesus Gonzalez MD [address] [place] [address] [facility]05/[facility]/23Team MemberRelationshipSpecialtyStart DateEnd Jesus Gonzalez MD [address] [place] [address] PCP - [facility]05/12/23 Jesus Gonzalez MD [facility]01/14/21 Jesus Gonzalez MD [address] [place] [address] [facility]05/12/23 Team Status: Active Member Role Status David Broderick MD Attending [...] 2024 End: November 03, 2024Team MemberRelationshipSpecialtyStart DateEnd Jesus Gonzalez MD [address] [facility] [place] [address] PCP - [facility]05/12/23 Jesus Gonzalez MD [facility]01[facility]/21 Jesus Gonzalez MD [address] [place] [address] [facility]/23 Team Status: Inactive Member Role Status [...] DateEnd Date Jesus Gonzalez MD [address] [place] [address] [facility]/12/23 Jesus Gonzalez MD [facility]01/14/21 Jesus Gonzalez MD [address] [place] [address] [facility]05/[facility]/23 Team Status: Inactive Member Role Status [...] DateEnd Date Jesus Gonzalez MD [address] [place] [address] PCP - GeneralFamily Medicine05/12/23 Jesus Gonzalez MD ReferringFamily Medicine01/14/21 Jesus Gonzalez MD [address] [facility] [place] [address] ReferringFamily Medicine05/12/23Team MemberRelationshipSpecialtyStart DateEnd Date Jesus Gonzalez MD [address] [facility] [place] [address] [facility] - [facility]/12/23 Jesus Gonzalez MD ReferringFamily Medicine01/14/21 Jesus Gonzalez MD [address] [facility] [place] [address] [facility]erringF[facility]Way[facility]05/12/23Team MemberRelationshipSpecialtyStart End Jesus Gonzalez MD [address] [facility] [place] [address] PCP - Generalmily Medicine05/12/23 Jesus Gonzalez MD ReferringFami Medicine01/14/21 Jesus Gonzalez MD [address] [facility] [place] [address] ReferringFami Medicine05/12/23Team MemberRelationshipSpecialtyStart DateEnd Date Jesus Gonzalez MD [address] [facility] [place] [address] PCP - GeneralFamily Medicine05/12/23 Jesus Gonzalez MD ReferringFamily Medicine01/14/21 Jesus Gonzalez MD [address] [facility] [place] [address] ReferringFamily Medicine05/12/23Team MemberRelationshipSpecialtyStart DateEnd Date Jesus Gonzalez MD [address] [facility] [place] [address] PCP - GeneralFami Medicine05/12/23 Jesus Gonzalez MD ReferringFamily Medicine01/14/21 Jesus Gonzalez MD [address] [facility] [address] ReferringFami Medicine05/12/23Team MemberRelationshipSpecialtyStart DateEnd Date Jesus Gonzalez MD [address] [facility] [place] [address] PCP - Generalmily Medicine05/12/23 Jesus Gonzalez MD ReferringFamily Medicine01/14/21 Jesus Gonzalez MD [address] [facility] [place] [address] ReferringFamily Medicine05/12/23Team MemberRelationshipSpecialtyStart DateEnd Date Jesus Gonzalez MD [address] [facility] [place] [address] PCP - GeneralFamily Medicine05/12/23 Jesus Gonzalez MD ReferringFamily Medicine01/14/21 Jesus Gonzalez MD [address] [facility] [address] ReferringFamily Medicine05/12/23Te MemberRelationshipSpecialtyStart End Jesus Gonzalez MD [address] [facility] [place] [address] PCP - Generalmily Medicine05/12/23 Jesus Gonzalez MD ReferringFamily Medicine01/14/21 Jesus Gonzalez MD [address] [facility] [place] [address] ReferringFamily Medicine05/12/23Te MemberRelationshipSpecialtyStart End Jesus Gonzalez MD [address] [facility] [place] [address] PCP - GeneralFamily Medicine05/12/23 Jesus Gonzalez MD ReferringFamily Medicine01/14/21 Jesus Gonzalez MD [address] [facility] [address] ReferringFamily Medicine05/12/23Team MemberRelationshipSpecialtyStart DateEnd Date Jesus Gonzalez MD [address] [facility] [place] [address] PCP - Generalmily Medicine05/12/23 Jesus Gonzalez MD ReferringFamily Medicine01/14/21 Jesus Gonzalez MD [address] [facility] [place] [address] [facility]05/12/23Team MemberRelationshipSpecialtyStart DateEnd Date Jesus Gonzalez MD [address] [facility] [place] [address] PCP - Generalmily Medicine05/12/23 Jesus Gonzalez MD Referringmi Medicine01/14/21 Jesus Gonzalez MD [address] [facility] [address] [facility]miWay[facility]05/12/23Team MemberRelationshipSpecialtyStart DateEnd Date Jeuss Gonzalez MD [address] [facility] [address] PCP - Generalmily Medicine05/12/23 Jesus Gonzalez MD ReferringFami Medicine01/14/21 Jesus Gonzalez MD [address] [facility] [address] [facility]erring[facility]05/12/23Team MemberRelationshipSpecialtyStart DateEnd Date Jesus Gonzalez MD [address] [place] [address] PCP - [facility]05/12/23 Jesus Gonzalez MD [facility]01/14/21 Jesus Gonzalez MD [address] [place] [address] [facility]05/12/23 Team Status: Inactive Member Role Status Dates Jesus Gonzalez MD Primary Care Provider Active Start: February 10, 2025 End: February 10, 2025DoSanchez Reyes ProviderActiveStart: February 10, 2025 End: February 10, 2025 Team Status: Inactive Member Role Status Dates Jesus Gonzalez MD Primary Care Provider Active Start: March 22, 2025 End: March 22Sanchez Horn ProviderActiveStart: March 22, 2025 End: March 22, 2025Team MemberRelationshipSpecialtyStart DateEnd Date Jesus Gonzalez MD [address] [place] [address] PCP - [facility]05/12/23 Jesus Gonzalez MD [facility]01/14/21 Jesus Gonzalez MD [address] [place] [address] [facility]05/12/23 Name Effective Dates (start - stop) Status Members No Information Team MemberRelationshipSpecialtyStart DateEnd Jesus Gonzalez MD [address] [facility] [place] [address] PCP - Generalmily Medicine05/12/23 Jesus Gonzalez MD ReferringFamily Medicine01/14/21 Jesus Gonzalez MD [address] [facility] [place] [address] [facility]erring[facility]05/12/23Team MemberRelationshipSpecialtyStart End Jesus Gonzalez MD [address] [facility] [place] [address] PCP - Generalmi Medicine05/12/23 Jesus Gonzalez MD ReferringF[facility]01/14/21 Jesus Gonzalez MD [address] [facility] [address] ReferringF[facility] Medicine05/12/23Team MemberRelationshipSpecialtyStart DateEnd Jesus Gonzalez MD [address] [facility] [address] PCP - Generalmily Medicine05/12/23 Jesus Gonzalez MD ReferringF[facility] Medicine01/14/21 Jesus Gonzalez MD [address] [facility] [place] [address] [facility]05/12/23 Team Status: Inactive Member Role Status Dates Jesus Gonzalez MD Primary Care Provider Active Start: May 26, 2025 End: May 26, 2025DoSanchez Reyes ProviderActiveStart: May 26, 2025 End: May 26, 2025Team MemberRelationshipSpecialtyStart DateEnd Date Jesus Gonzalez MD [facility] - [facility]03/12/23 Team Status: Active Member Role [...] 2025Team MemberRelationshipSpecialtyStart DateEnd Date Jesus Gonzalez MD [facility] - [facility]03/12/23Team MemberRelationshipSpecialtyStart DateEnd Date Jesus Gonzalez MD [facility]03/12/23 Team Status: Inactive Member Role Status David [...] Start: June 26, 2025 End: June 26, 2025DoSnachez Reyes ProviderActiveStart: June 26, 2025 End: June 26, 2025 Team Status: Inactive Member Role Status David Gonzalez MD Primary Care Provider Active Start: June 27, 2025 End: June 27rick Ocampo NP-[place] ProviderActiveStart: June 27, 2025 End: June 27, 2025Team MemberRelationshipSpecialtyStart DateEnd Jesus Carmona MD PCP - [facility]03/12/23Team MemberRelationshipSpecialtyStart DateEnd Jesus Carmona MD PCP - [facility]03/12/23Team MemberRelationshipSpecialtyStart DateEnd Jesus Carmona MD PCP - [facility]03/12/23 Team Status: Active Member Role/Relationship Status David Gonzalez MD Primary Care Provider Active Team Status: Inactive Member Role/Relationship Status David Gonzalez MD Primary Care Provider Active Start: May 26, 2025 End: May 26, 2025Sanchez Booker ProviderActiveStart: May 26, 2025 End: May 26, 2025 Team Status: Inactive Member Role/Relationship Status David Gonzalez MD Primary Care Provider Active Start: May 30, 2025 End: May 30, 2025Renee Meier ProviderActiveStart: May 30, 2025 End: May 30, 2025 Team Status: Inactive Member Role/Relationship Status David Gonzalez MD Primary Care Provider Active Start: May 30, 2025 End: May 30, 2025Renee Meier ProviderActiveStart: May 30, 2025 End: May 30, 2025 Team Status: Inactive Member Role/Relationship Status David Gonzalez MD Primary Care Provider Active Start: June 05, 2025 End: June 05Alicia Renee ProviderActiveStart: June 05, 2025 End: June 05, 2025 Team Status: Inactive Member Role/Relationship Status David Gonzalez MD Primary Care Provider Active Start: June 13, 2025 End: June 13, 2025DoSanchez Reyes ProviderActiveStart: June 13, 2025 End: June 13, 2025 Team Status: Inactive Member Role/Relationship Status David Gonzalez MD Primary Care Provider Active Start: June 19, 2025 End: June 19, 2025DoSanchez Reyes ProviderActiveStart: June 19, 2025 End: June 19, 2025 Team Status: Inactive Member Role/Relationship Status David Gonzalez MD Primary Care Provider Active Start: June 26, 2025 End: June 26, 2025Sanchez Booker ProviderActiveStart: June 26, 2025 End: June 26, 2025 Team Status: Inactive Member Role/Relationship Status David Gonzalez MD Primary Care Provider Active Start: June 27, 2025 End: June 27rick Ocampo NP-CAttensergey ProviderActiveStart: June 27, 2025 End: June 27, 2025 Team Status: Inactive Member Role/Relationship Status David Gonzalez MD Primary Care Provider Active Start: July 12, 2025 End: July 12Sanchez Horn ProviderActiveStart: July 12, 2025 End: July 12, 2025 Team Status: Active Member Role/Relationship Status David Gonzalez MD Primary Care Provider Active Start: July 12, 2025 Sanchez Clarke ProviderActiveStart: July 12, 2025 Team Status: Inactive Member Role/Relationship Status Dates Jesus Gonzalez MD Primary Care Provider Active Start: July 12, 2025 End: July 12abeba Gomes Sanchez ProviderActiveStart: July 12, 2025 End: July 12, 2025 Team Status: Inactive Member Role/Relationship Status Dates Jesus Gonzalez MD Primary Care Provider Active Start: July 17, 2025 End: July 17, 2025DoSanchez Reyes ProviderActiveStart: July 17, 2025 End: July 17, 2025 Goals (unrecognized section and content) Goals [...] BE BASED ON THE PRIMARY CLINICAL RECORDS. [facility] [employer] provides no warranty or guarantee of the accuracy or completeness of information in this document.
--- OUTSIDE RECORDS SUMMARY | 2025-07-24 06:56 | XMS_ITS | Clinical Summary ---
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 Name Role Phone Jesus Camacho MD Primary Care Provider [phone] Allergies No known active allergies Medications MedicationSigDispense QuantityRefillsLast FilledStart DateEnd DateStatus Brexpiprazole (Rexulti) 2 MG tablet TAKE 1 TABLET BY MOUTH ONCE DAILY Oral for 30Active prmphmavee-ehenaudmfgalt-eksvwgso 50-325-40 MG tablet TAKE 1 TABLET BY [...] solution INHALE ONE VIAL ONCE DAILY PER IZFPIXYZK10/01/2023ctive diclofenac (Voltaren) 75 MG EC tablet Take [...] USING NEBULIZER 4 TIMES A DAY03/10/2023ctive Drug [place] Unilet Lancets 33G misc USE ONCE DAILY03/10/2023ctive lisinopril 10 MG tablet Take 10 mg by mouth in the morning.03/09/2023ctive ondansetron (Zofran) 4 MG tablet TAKE 1 TABLET BY MOUTH EVERY 6 HOURS NEEDED FOR NAUSEA AND BSLQPBYV48/03/2023 Active pregabalin (Lyrica) 50 MG capsule Take 50 mg by mouth in the morning and 50 mg before bedtime.06/19/2022ctive promethazine (Phenergan) 25 MG tablet Take 25 mg by mouth every 8 (eight) hours if needed.02/17/2023ctive tiZANidine (Zanaflex) 4 MG tablet TAKE 2 TABLETS BY MOUTH DAILY AT FLOJSXI5404/11/2022ctive doxepin (SINEquan) 10 MG capsule Take 10 [...] by mouth every 12 (twelve) hours if zzyaho6305/26/2024ctive Myrbetriq 25 MG 24 hr tablet TAKE [...] ProblemNoted DateDiagnosed DateRib pain on right side03/25/2023loating 3DM type 2 without kwypyioemiy35/11/6327Beqlyqmgbeps72/11/2023Myopia of both eyes03/24/2023Nuclear senile fqibeqbl29/11/2023Open angle with borderline findings, low risk, oebqinkcf95/11/2023Otitis kjkller5203/24/2023resbyopia 03/24/2023 Encounters DateTypeDepartmentCare UuvvDseguzmkmys88/27/2025 2:20 PM EDTOffice Visit [facility] [place] [facility] [address] [place] [address] Ash Greene MD Recurrent sinus infections (Primary Dx); Obstructive sleep apnea07/10/2025Orders Only [facility] Unsolicited Ash Greene MD 07/10/2025amboo flowsheet [facility] [address] [place] [phone] Ash Greene MD 07/10/20250569Eolzrs78/21/8414Rdhcby62/23/2025Telephone [facility] [address] [place] [place] [address] Lamar Rose NP 06/05/2025 6:15 PM EDTAncillary Procedure [facility] [place] [facility] [address] [place] [phone] Rib pain on right side06/05/2025 5:40 PM EDTOffice Visit [facility] [place] [address] [place] [address] Lamar Rose, PANDA Rib pain on right side (Primary Dx); Sprain of costal cartilage, initial iepespnuv15/22/9226Aqpbfs88/09/2025 1:20 PM EDTOffice Visit [facility] [address] [place] [phone] Sharon Wilburn NP Adydvblgtxoi60/09/2025Travelfrom Last 3 Months Immunizations ImmunizationAdministration DatesNext DueHep A, Adult02/02/2019Influenza, Nquplpzogeb37/10/2017Influenza, injectable, MDCK, preservative free, gceoywrzizml98/05/2022,07/04/2020Influenza, injectable, quadrivalent, preservative free07/12/2021,08/30/2014Td (adult), 5 Lf tetanus toxoid, preservative free, /20/2021 Family History Medical HistoryRelationNameCommentsliver failureFatherRelationNameStatusComments BrotherAliveFatherDeceasedMotherAlive Social History Tobacco UseTypesPacks/DayYears UsedDateSmoking Tobacco: FormerCigarettes Tobacco Cessation:Counseling Given: Not Answered Comments:>10 years since last smoked Alcohol UseStandard Drinks/WeekCommentsYes0 (1 standard drink = 0.6 oz pure alcohol)caffeine: stackersCommentsUnknownSex and Gender InformationValue Date RecordedSex Assigned at BirthNot on fileLegal IhvYlensv60/15/2023 8:26 PM EDTGender IdentityNot on fileSexual OrientationNot on file Last Filed Vital Signs Vital SignReadingTime TakenCommentsBlood Bbraptij252/90006/05/2025 5:46 PM EDT Vdrwy813406/05/2025 5:46 PM BGDTivseqgkyur68.1 ??C (98.7 ??F)06/05/2025 5:46 PM EDTRespiratory Sdis972406/05/2025 5:46 PM EDTOxygen Bdyrswkbpj33%06/05/2025 5:46 PM EDTInhaled Oxygen Concentration--Bnoyyi399 kg (245 lb)07/10/2025 2:11 PM EDT Sfyhhl791.1 cm (5' 5 )03/25/2023 10:35 AM EDTBody Mass Index40.77003/25/2023 10:35 AM EDT Plan of Treatment DateTypeDepartmentCare Team (Latest Contact Info)Fcnjvpxisan40/24/2025 2:40 PM ESTOffice Visit [facility] [place] [address] [place] [phone] Ash Greene MD [address] [place] [address] Health MaintenanceDue DateLast DoneCommentsCT Jkohshzqadmj42/22/1978Colonoscopy 1977Colorectal Cancer Rxmknlwln74/22/1978FIT-DNA1977FIT1977 FOBT1977 8881Vwgwmoibpvltn75/22/1978Pap Smear1998Cervical Cancer Ldayfkgiy50/22/2008HPV/Yhwjse1811/05/20078868Ewpahhnkm30/22/2018COVID-19 Vaccine ( season)/, 01/02/2021Influenza Vaccine (#1)2025 06/18/2022, 07/12/2021, 07/04/2020, Additional history existsPneumococcal Vaccine: Pediatrics (0 to 5 Years) and At-Risk Patients (6 to 64 Years)Aged Out No longer eligible based on patient's age to complete this topic Procedures Procedure NamePriorityDate/TimeAssociated DiagnosisCommentsIMMUNOGLOBULIN E Amygmnh4307/10/2025 3:43 PM EDT DIPHTHERIA / TETANUS ANTIBODY ZHTVSRpvdweu93/27/2025 3:43 PM EDT PNEUMOCOCCAL AB (23 SEROTYPE)Gqzzruk5207/10/2025 3:43 PM EDT IMMUNOGLOBULIN ZAmwvnjf43/27/2025 3:43 PM EDT IMMUNOGLOBULIN DQpwekvg86/27/2025 3:43 PM EDT IMMUNOGLOBULIN DKyeqsyk50/27/2025 3:43 PM EDT HYPERCOAG PANEL NWLFZPEmxzjoy99/27/2025 3:43 PM EDT CBC (INCLUDES DIFF/PLT)Swcavfh1207/10/2025 3:43 PM EDT XR RIBS 2 VIEWS RIGHT WITH CHEST LJGEZPXQAFHJRGTVPVT54/22/2025 6:23 PM EDT Rib pain on right side from Last 3 Months Results * (ABNORMAL) PNEUMOCOCCAL AB (23 SEROTYPE) (07/10/2025 3:43 PM EDT)Component ValueRef RangeTest MethodAnalysis TimePerformed AtPathologist SignaturePNEUMO AB TYPE 1*<0.1(L)>1.3 ug/mLLABCORPPNEUMO AB TYPE 3*<0.1(L)>1.3 ug/m[facility] PNEUMO AB TYPE 4*<0.1(L)>1.3 ug/mLLABCORPPNEUMO AB TYPE 8*<0.3(L)>1.3 ug/mL [facility]ABC[facility]PPNEUMO AB TYPE 9 (9N)*1.5>1.3 ug/mLLABCORPPNEUMO AB TYPE 12 (12F)*<0.1 (L)>1.3 ug/mLLABCORPPNEUMO AB TYPE 14*0.2(L)>1.3 ug/mLLABCORPPNEUMO AB TYPE 17 (17F)*2.2>1.3 ug/mLLABCORPPNEUMO AB TYPE 19 (19F)*0.2(L)>1.3 ug/m[facility] PNEUMO AB TYPE 2*<0.2(L)>1.3 ug/mLLABCORPPNEUMO AB TYPE 20*<0.2(L)>1.3 ug/mL [facility]ABC[facility]PPNEUMO AB TYPE 22 (22F)*<0.1(L)>1.3 ug/mLLABCORPPNEUMO AB TYPE 23 (23F)*0.2(L)>1.3 ug/mLLABCORPPNEUMO AB TYPE 26 (6B)*<0.1(L)>1.3 ug/m[facility] PNEUMO AB TYPE 34 (10A)*<0.1(L)>1.3 ug/mLLABCORPPNEUMO AB TYPE 43 (11A)*<0.1 (L)>1.3 ug/mLLABCORPPNEUMO AB TYPE 5*<0.1(L)>1.3 ug/mLLABCORPPNEUMO AB TYPE 51 (7F)*<0.1(L)>1.3 ug/mLLABCORPPNEUMO AB TYPE 54 (15B)*<0.2(L)>1.3 ug/m[facility] PNEUMO AB TYPE 56 (18C)*<0.1(L)>1.3 ug/mLLABCORPPNEUMO AB TYPE 57 (19A)*0.1(L) >1.3 ug/mLLABCORPPNEUMO AB TYPE 68 (9V)*<0.1(L)>1.3 ug/mLLABCORPPNEUMO AB TYPE 70 (33F)*<0.1(L)>1.3 ug/mLLABCORPComment: *This test was developed and its performance characteristics determined by [employer]. It has not been cleared or approved by the U.S. Food and Drug Administration. FLAG Interpretation: A = Abnormal, H = High, L = Low Specimen (Source)Anatomical Location / LateralityCollection Method / Volume Collection TimeReceived Time07/10/2025 3:43 PM EDT1 Narrative [facility] - 07/13/2025 8:35 AM EDT Performed at: 01 - [facility] [facility] [address], [place] ??[id number] Rn Perinatal: DENICE Voss, Phone: ??[phone] Authorizing ProviderResult TypeResult StatusTodd E Rambasek [facility] BLOOD ORDERABLESFinal ResultPerforming OrganizationAddressCity/State/ZIP CodePhone Number [facility] * (ABNORMAL) Diphtheria / Tetanus Antibody Panel (07/10/2025 3:43 PM EDT) ComponentValueRef RangeTest MethodAnalysis TimePerformed AtPathologist SignatureTETANUS ANTITOXOID IGG AB1.19<0.10 IU/mLLABCORPComment: ? Interpretation: Non-Protective <0.10 Protective >=0.10 Results for this test are for research purposes only by the assay's luncheonette operator. ??The performance characteristics of this product have not been established. ??Results should not be used as a diagnostic procedure without confirmation of the diagnosis by another medically established diagnostic product or procedure. DIPHTHERIA ANTITOXOID AB<0.10(L)<0.10 IU/mLLABCORPComment: ? Interpretation: Non-Protective <0.10 Protective >=0.10 For research use only. Specimen (Source)Anatomical Location / LateralityCollection Method / Volume Collection TimeReceived Time07/10/2025 3:43 PM EDT1 Narrative [facility] - 07/13/2025 8:35 AM EDT Performed at: 02 - [facility] ??[id number] Rn Perinatal: Lila Cadena MD, Phone: ??[phone] Authorizing ProviderResult TypeResult StatusTodd E Rambasek [facility] BLOOD ORDERABLESFinal ResultPerforming OrganizationAddressCity/State/ZIP CodePhone Number [facility] * HIV-2 antigen (07/10/2025 3:43 PM EDT)ComponentValueRef RangeTest Method Analysis TimePerformed AtPathologist SignatureHIV Scr 4th GenNon ReactiveNon ReactiveLABCORPComment: HIV-1/HIV-2 antibodies and HIV-1 p24 antigen were NOT detected. There is no laboratory evidence of HIV infection. HIV Negative Specimen (Source)Anatomical Location / LateralityCollection Method / Volume Collection TimeReceived Time07/10/2025 3:43 PM EDT1 Narrative [facility] - 07/11/2025 8:35 AM EDT Performed at: 01 - [address] ??[id number] Rn Perinatal: Maxim Daniel PhD, Phone: ??[phone] Authorizing ProviderResult TypeResult StatusTodd E Rambasek [facility] BLOOD ORDERABLESFinal ResultPerforming OrganizationAddressCity/State/ZIP CodePhone Number [facility] * (ABNORMAL) CBC and differential (07/10/2025 3:43 PM EDT)ComponentValueRef RangeTest MethodAnalysis TimePerformed AtPathologist SignatureWBC9.73.4 - 10.8 x10E3/uLLABCORPRBC4.443.77 - 5.28 x10E6/vUIQRVSFNTgm11.711.1 - 15.9 g/dL PHUHHIBKzc62.734.0 - 46.6 %FMKCNMSYGU6289 - 97 zMVJFWMPSXKZ99.626.6 - 33.0 pg KFMZSTGWDHN30.831.5 - 35.7 g/qREXSOMITNBK59.311.7 - 15.4 %PWUNYUFHbfzkfwit640 (H)150 - 450 x10E3/sZCUPGBIHNojssnictex87Oqk Estab. %XTPJNQKZptlye12Wam Estab. %YJJICIELdxnxckxv2Bfs Estab. %SJLEWVIYrw4Fcq Estab. %ILVETSTIhkjd5Dsj Estab. % [facility]ORPNeutrophils Abs7.2(H)1.4 - 7.0 x10E3/uLLABCORPLymphs Abs1.80.7 - 3.1 x10E3/uLLABCORPMonocytesAbs0.60.1 - 0.9 x10E3/uLLABCORPEos Abs0.00.0 - 0.4 x10E3/uLLABCORPBaso Abs0.10.0 - 0.2 x10E3/uLLABCORPImmature Deesuukjishu9Hgw Estab. %LABCORPImmature Grans Abs0.10.0 - 0.1 x10E3/uLLABCORPSpecimen (Source) Anatomical Location / LateralityCollection Method / VolumeCollection Time Received Time07/10/2025 3:43 PM EDT1 Narrative [facility] - 07/11/2025 8:35 AM EDT Performed at: - [facility] ??[id number] Rn Perinatal: Maxim Daniel PhD, Phone: ??[phone] Authorizing ProviderResult TypeResult StatusTodd E Kirkbride CenterpeerTransferk AltierreLAB BLOOD ORDERABLESFinal ResultPerforming OrganizationAddressCity/State/ZIP CodePhone Number [facility] * IgE (07/10/2025 3:43 PM EDT)ComponentValueRef RangeTest MethodAnalysis Time Performed AtPathologist SignatureIMMUNOGLOBULIN E, TFTKZ518 - 495 IU/mLL[facility] Specimen (Source)Anatomical Location / LateralityCollection Method / Volume Collection TimeReceived Time07/10/2025 3:43 PM EDT1 Narrative [facility] - 07/13/2025 8:35 AM EDT Performed at: - [facility] ??[id number] Rn Perinatal: Lila Cadena MD, Phone: ??[phone] Authorizing ProviderResult TypeResult StatusTodd E Ramhaleigh [employer] BLOOD ORDERABLESFinal ResultPerforming OrganizationAddressty/State/ZIP CodePhone Number [facility] * IgA (07/10/2025 3:43 PM EDT)ComponentValueRef RangeTest MethodAnalysis Time Performed AtPathologist SignatureIMMUNOGLOBULIN A, QN, [id number] - 352 mg/dL [facility]PSpecimen (Source)Anatomical Location / LateralityCollection Method / VolumeCollection TimeReceived Time07/10/2025 3:43 PM EDT1 Narrative [facility] - 07/11/2025 8:35 AM EDT Performed at: - [address] ??[id number] Rn Perinatal: Maxim Daniel PhD, Phone: ??[phone] Authorizing ProviderResult TypeResult StatusTodd E Rambasek MDLAB BLOOD ORDERABLESFinal ResultPerforming OrganizationAddressCity/State/ZIP CodePhone Number [facility] * IgM (07/10/2025 3:43 PM EDT)ComponentValueRef RangeTest MethodAnalysis Time Performed AtPathologist SignatureIMMUNOGLOBULIN M, QN, [id number] - 217 mg/dL [facility]PSpecimen (Source)Anatomical Location / LateralityCollection Method / VolumeCollection TimeReceived Time07/10/2025 3:43 PM EDT1 Narrative [facility] - 07/11/2025 8:35 AM EDT Performed at: - [address] ??[id number] Rn Perinatal: Maxim Daniel PhD, Phone: ??[phone] Authorizing ProviderResult TypeResult StatusTodd E Rambasek [facility] BLOOD ORDERABLESFinal ResultPerforming OrganizationAddressCity/State/ZIP CodePhone Number [facility] * IgG (07/10/2025 3:43 PM EDT)ComponentValueRef RangeTest MethodAnalysis Time Performed AtPathologist SignatureIMMUNOGLOBULIN G, QN, [id number] - 1,602 mg/dLLABCORPSpecimen (Source)Anatomical Location / LateralityCollection Method / VolumeCollection TimeReceived Time07/10/2025 3:43 PM EDT1 Narrative [facility] - 07/11/2025 8:35 AM EDT Performed at: [address] ??[id number] Rn Perinatal: Maxim Daniel PhD, Phone: ??[phone] Authorizing ProviderResult TypeResult StatusTodd E Rambasek [facility] BLOOD ORDERABLESFinal ResultPerforming OrganizationAddressCity/State/ZIP CodePhone Number [facility] * XR ribs 2 views right w [...] BY: Sylvester Triplett MD Authorizing ProviderResult TypeResult StatusLindsCherrington HospitalG XR PROCEDURES Final Result from Last 3 Months Insurance Care Teams Team MemberRelationshipSpecialtyStart Date Jesus Camacho MD PCP - GeneralFamily Medicine03/12/23
--- OUTSIDE RECORDS SUMMARY | 2025-07-24 06:56 | XMS_ITS | Patient Health Record ---
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 Etienne Urbina Unavailable [phone] Reason For Referral No Information Problems Problem Type SNOMED Code ICD Code Onset Dates Problem Status W/U Status Risk Notes Problem 64944123 Radiculopathy, cervical beena on (M54.12) CntarapkuzxboicGuclefw74353413Crfpdq stenosis, cervical region (M48.02)Active ijzuvddudBnefeao818189726Rertpn stenosis, lumbosacral region (M48.07)Active xogkvbqvmYimkggz91960943Gdlbz intervertebral disc displacement, 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)KowpkdrypozehhlHwcukef40686879Dljhz intervertebral disc degeneration, lumbosacral region (M51.37)UmgmjnvdzxrivslBnbgswy064219229Apbxw cervical disc displacement at C5-C6 level (M50.222)ActiveconfirmedProblem 598754498Auiht cervical disc displacement at C6-C7 level (M50.223)Active confirmed Plan Of Treatment Pending Test Test Name Order Date Lumbar spine, 4v flex ext - 16523 2023 Cervical spine,ap,lat,flex,ext - 37943 0 02/19/2024 SFS - Lumbar Spine PT [...] Date Coverage End [place] [address] [place] [address] [id number] Juanita PICHARDO - patient is the insuredOhio Dept of MedicaidP [address] [place] [id number], MANDIESelf - patient is the [id number] 2024
--- OUTSIDE RECORDS SUMMARY | 2025-07-24 06:56 | XMS_ITS | Clinical Summary ---
Author Organization [facility] Address [address] [place], [place] [id number] Care Team Providers Care Chief Specialist Leed Name Role Phone Jesus Camacho MD Unavailable [phone] Jesus Camacho MD Unavailable [phone] Jesus Camacho MD Primary Care Provider [phone] Allergies No known active allergies Medications MedicationSigDispense QuantityRefillsLast FilledStart DateEnd DateStatus benzonatate (TESSALON PERLES ORAL) Active budesonide (PULMICORT) 1 mg/2 mL nebulizer solution INHALE 1 (ONE) vial via NEBULIZER ONCE DAILY02/09/2021ctive dapagliflozin (FARXIGA) 5 mg tablet Active DEXILANT 60 mg CpDM Take 1 capsule by mouth twice daily.02/16/2021ctive doxepin capsule 10 mg Active glycopyrrolate (ROBINUL) 1 mg tablet Take 2 mg by mouth twice daily.02/16/2021ctive ipratropium-albuterol (DUONEB) 0.5 mg-3 mg(2.5 mg base)/3 mL nebu Active lamoTRIgine (LAMICTAL) 200 mg tablet TAKE 3 TABLETS EVERY DAY02/16/2021ctive AMITIZA 24 mcg capsule Take 24 mcg by mouth twice daily.02/16/2021ctive metFORMIN (GLUCOPHAGE) 500 mg tablet Active pioglitazone (ACTOS) 15 mg tablet Active simvastatin (ZOCOR) 20 mg tablet Take 20 mg by mouth once daily.02/16/2021ctive levothyroxine (SYNTHROID) 50 mcg tablet Take 50 mcg by mouth daily before breakfast.Active ondansetron orally disintegrating (ZOFRAN ODT) 4 mg disintegrating tablet Take 4 mg by mouth every 8 hours as needed.10/02/2021ctive medroxyPROGESTERone (DEPO-PROVERA) 150 mg/mL injection Inject 150 mg intramuscularly every 12 weeks.Active mirabegron (MYRBETRIQ) 50 mg Tb24 Take 50 mg by mouth once daily.Active acetaminophen (TYLENOL) 325 mg tablet 2 tablets by ORAL/FEEDING TUBE route every 4 hours as needed for pain.02/23/2025 Active senna-docusate (SENNA-S) 8.6-50 mg per tablet Take 1 tablet by mouth two times a day as needed for constipation. 100 tablet 02/22/2025 10:55 AM EDT5Active DULoxetine (CYMBALTA) 60 mg capsule Indications:FibromyalgiaTAKE 1 CAPSULE BY MOUTH EVERY DAY 90 capsule 5Active nortriptyline (PAMELOR) 10 mg capsule Indications:Chronic daily headacheTake 1 capsule by mouth daily at bedtime. 30 capsule 5Active hydrOXYchloroQUINE (PLAQUENIL) 200 mg tablet TAKE 1 TABLET BY MOUTH TWICE A DAY [address] (CYMBALTA) 30 mg capsule Indications:FibromyalgiaTAKE 1 CAPSULE BY MOUTH EVERY DAY ALONG WITH THE 60MG CAPSULE TO EQUAL 90MG A DAY 90 capsule 5Active methocarbamol (ROBAXIN) 500 mg tablet Indications:Chronic daily headacheTAKE 1 TABLET BY MOUTH TWICE A DAY NEEDED 45 tablet 5Active etodolac (LODINE) 400 mg tablet Indications:Inflammatory arthritisTAKE 1 TABLET BY MOUTH TWICE A DAY NEEDED 60 tablet 5Active predniSONE (DELTASONE) 5 mg tablet Indications:Inflammatory arthritisTAKE 1 TO 2 TABLETS BY MOUTH EVERY DAY 60 tablet 5Active etodolac (LODINE) 400 mg tablet Indications:Inflammatory arthritisTAKE 1 TABLET BY MOUTH TWICE A DAY NEEDED 60 tablet Discontinued predniSONE (DELTASONE) 5 mg tablet Indications:Inflammatory arthritisTAKE 1 TO 2 TABLETS BY MOUTH EVERY DAY 60 tablet Discontinued methylPREDNISolone (MEDROL, BOUBACAR,) 4 mg Dose-Pack As instructed per package 1 tablet Expired Active Problems ProblemNoted DateDiagnosed DateDizziness and kqmyohagt77/16/2025Meningioma 02/20/2025 Assessment & Plan (02/21/2025 12:31 PM EDT): 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 Evaluating with posotp MRI Pain control: ATC APAP x48h, robaxin Mobilize, OOB for meals MAREK (obstructive sleep apnea)02/14/2025 Assessment & Plan (02/21/2025 12:36 PM EDT): Monitoring pulse ox Not on home CPAP Assessment & Plan (02/14/2025 8:02 AM EDT): Assessment: Does not use CPAP GERD (gastroesophageal reflux disease)02/14/2025 Assessment & Plan (02/21/2025 12:35 PM EDT): Treating with PPI Assessment & Plan (02/14/2025 8:03 AM EDT): Assessment: Controlled with dexilant Gddonzyonmohpb44/03/2025 Assessment & Plan (02/21/2025 12:34 PM EDT): Treating with home synthroid 50mcg qday Assessment & Plan (02/14/2025 8:03 AM EDT): Assessment: Controlled with levothyroxine Class 3 severe obesity due to excess calories with serious comorbidity and body mass index (BMI) of40.0 to 44.9 in adult02/14/2025 Assessment & Plan (02/21/2025 12:36 PM EDT): [facility] nutrition education Assessment & Plan (02/14/2025 8:19 AM EDT): Assessment: Body mass index is 40.98 kg/m??. Inflammatory valxrfury64/03/2025 Assessment & Plan (02/14/2025 8:21 AM EDT): Assessment: Stable ON Plaquenil and prednisone as needed Follows with Dr. Villegas Rheumatology Intracranial tspsxewfny19/18/2023hronic tension-type headache, intractable 3Anxiety Assessment & Plan (02/21/2025 12:36 PM EDT): [...] Cymbalta Monitored by [facility] rheumatology Resolved Problems ProblemNoted DateDiagnosed DateResolved DatePost-op pain Cerebral edema Assessment & Plan (02/21/2025 12:37 PM EDT): Clinically significant cerebral edema treating with decadron 8bid (SSI, PPI) with mcfp taper plan off over 1 week At risk for shputapq01 Assessment & Plan (02/21/2025 12:38 PM EDT): Treating with periop keppra x 1 week Neoplasm causing mass effect and brain compression on adjacent structures Assessment & Plan (02/21/2025 12:39 PM EDT): R/t meningioma, noted on preop MRI See meningioma POC Aozkwxjbeo54/03/2025 Encounters DateTypeDepartmentCare PqeqLuytxmnmetl34/09/2025Refill Rheumatology [id number] [place] [address] Zulema Mclean MD Refill Basdfkv2007/06/2025 Get Medical Advice Rheumatology [address] [place] [address] Zulema Mclean MD Ttvdiliep89/11/2025Refill Rheumatology [address] [place] [address] Zulema Mclean MD Refill Deobtwk4506/22/2025 2:20 PM EDTOffice Visit Rheumatology [address] [place] [address] Zulema Mclean MD Fibromyalgia (Primary Dx); Inflammatory arthritis; Encounter for medication lzummtimfa12/07/3014Oqxmib82/03/2025Refill Neurology Headache [facility] [address] [place] [address] Rachele Fenton APRN.SURVEY RESEARCH PROFESSOR Refill Irbpeym7605/15/2025Refill Rheumatology [address] [place] [address] Zulema Mclean MD Refill Zbgywko5904/25/2025Refill Rheumatology [address] [place] [address] Zulema Mclean MD Refill Requestfrom Last 3 Months Family History Medical HistoryRelationCommentsSeizuresBrotherRelationStatusCommentsBrotherAlive MotherAliveSon 1AliveSon 2Alive Social History Tobacco UseTypesPacks/DayYears UsedDateSmoking Tobacco: FormerSmokeless Tobacco: Never Tobacco Cessation:Counseling Given: Not Answered Comments:Started 1994. Quit 2009. 1 ppd Alcohol UseStandard Drinks/WeekCommentsYes0 (1 standard drink = 0.6 oz pure alcohol)3-4 drinks on occasionPHQ-2AnswerDate RecordedPHQ-2 evjlq6055Area Deprivation IndexAnswerDate RecordedNational Score (1-100), lower number is lower fcbz225806/01/2023State Score (1-10), lower number is lower gaxx72106/01/2023 Data from: https://www.neighborhoodatlas.medicine.[facility].edu/. Last address used for lanydysmeah[address]06/01/2023CommentsNoSex and Gender InformationValueDate RecordedSex Assigned at JqcigRcxsds74/14/2021 11:09 PM EDT Legal CgvDzlvqb45/02/2012 8:01 AM ESTGender NxleasyhFpyqdo62/14/2021 11:09 PM EDTSexual JocszqolirzZonrfffn89/14/2021 11:09 PM EDT Last Filed Vital Signs Vital SignReadingTime TakenCommentsBlood Zsjwughk123/7710 2:23 PM EDT Modha1072 2:23 PM CFTNffukubdhfo57.3 ??C (99.2 ??F)03/06/2025 10:11 AM EDTRespiratory Wufv558403/15/2025 12:03 PM EDTOxygen Wxcorladse51%03/15/2025 12:03 PM EDTInhaled Oxygen Concentration--Evsrnv926.4 kg (250 lb)06/22/2025 2:23 PM HQDKbtcnp264.1 cm (5' 5 )06/22/2025 2:23 PM EDTBody Mass Index41. 2:23 PM EDT Plan of Treatment DateTypeDepartmentCare Team (Latest Contact Info)Kanfkgcrqzt35/22/2025 10:20 AM [facility] [place] [address] [place] [address] Benign neoplasm of meninges (HCC) [D32.9]09/05/2025 11:00 AM [facility] [address] [place] [address] Renée De La O APRN.SURVEY RESEARCH PROFESSOR [address] [facility] [address] [place] [address] 6 Month Follow Up12/21/2025 2:20 PM EDTOffice Visit Rheumatology [address] [place] [address] Zulema Mclean MD [address] [facility] [address] [place] [address] 6 mo follow upHealth MaintenanceDue DateLast DoneCommentsDiabetic Foot Exam 1987Dilated Retinal Exam1987Urine Albumin:Creatinine Ratio1987 Annual PCP Team Chronic Disease Visit1995Depression Wesjleeij23/22/1996LDL Nropxrzfzul89/22/1996Hepatitis B Vaccine (1 of 3 - 19+ 3-dose series)1996 Pneumococcal Vaccine (1 of 2 - PCV)1996Cervical Cancer Rcaisuppe97/22/1999 Mammogram Xkesqnpdo85/22/2018DTaP,Tdap,Td Vaccine (1 - Tdap)/ CT Qchyrwrsuvjc02/22/2023ologuard (FIT-DNA)11/05/20223003Llysdxlhrtq77/22/2023 Colorectal Cancer Ynkzejivx00/22/2023Fecal Occult Blood2022Sigmoidoscopy 2022Medicare Advantage Annual Wellness Visit09/14/2024ovid-19 Vaccine ( season)/, 01/02/2021Influenza Vaccine (#1) /, 06/18/2022, 07/12/2021, Additional history gaioshRcF9W /12/2024HIV AtyxcvzrgStnrrchkf33/24/2006Hepatitis C Screening Hbkyrloqp07/21/2021, 01/05/2006 Medical Devices ImplantedTypeAreaManufacturerDevice IdentifierShelf Expiration DateModel / Serial / LotPatch Duramatrix-Onlay Plus Collagen 2x2in Dural Regeneration Membrane - [id number] Implanted:Qty: 1 on 02/20/2025 [facility] Right: Head - CranialSTRYKER NEUR01/11/2027DMOP22 / / [id number] Bone 8 Hole Profile - [id number] Implanted:Qty: 1 on 02/20/2025 [facility]: Head - Cranial STRY-HOWM [id number] / / Plate 3d Large Box Low Profile Titanium Bone 2x2 Hole 1.5mm Screw - [id number] Implanted:Qty: 1 on 02/20/20[facility] Head - Cranial STRY-HOWM [id number] / / Plate Low Profile Titanium 12mm Bone 2 Hole Bar 1.5mm Screw Nonsterile - [id number] Implanted:Qty: 2 on 02/20/20[facility] Head - Cranial STRY-HOWM [id number] / / Cover 10mm Medium Titanium Aline Hole Low Profile Tab 1.5mm Screws - [id number] Implanted:Qty: 1 on 02/20/20[facility] Head - Cranial STRY-HOWM [id number] / / Screw Bone [place] [employer] 3 4mm 1.5mm Self Drill Axial Stability Latex - [id number] Implanted:Qty: 11 [facility]/20[facility] Head - Cranial STRY-HOWM [id number] / / [place] [employer] Axs Neuro Screw Disc Pre-Loaded 1.5mm X 4mm Implanted:Qty: 17 on 02/20/2025 [facility] Head - Cranial [id number] / / Procedures Procedure NamePriorityDate/TimeAssociated DiagnosisCommentsHEMOGLOBIN J9RTqbfmdj 02/15/2025 12:56 PM EDT Pre-op evaluation Type 2 diabetes mellitus without complication, without long-term current use of insulin (HCC) *HEP C EYHjvyyse05/21/2021 1:39 PM EDT Pain in joint, multiple sites HIV 1/2 COMBO WITH REFLEX TO UFFPPUMPHNSFTLK70/24/2006 3:17 PM EDT from Last 3 Months or Most Recently Relevant to Health Maintenance Results * HEMOGLOBIN A1C (02/15/2025 12:56 PM EDT)ComponentValueRef RangeTest Method Analysis TimePerformed AtPathologist SignatureHemoglobin A1C5.44.3 - 5.6 % 02/16/2025 6:33 AM [facility]Comment:[place] Diabetes Association guidelines indicate that patients with HgbA1c in the range 5.7-6.4% are at increased risk for development of diabetes, and intervention by lifestyle modification may be beneficial. HgbA1c greater or equal to 6.5% is considered diagnostic of diabetes.Estimated Average Glucose 108mg/dL02/16/2025 6:33 AM [facility] LABComment:eAG: (Estimated average glucose) is a calculated value from HgbA1c and is sales representative malt liquors of the average blood glucose level in the last 2-3 month period.Specimen (Source)Anatomical Location / LateralityCollection Method / VolumeCollection TimeReceived TimeBloodBLOOD SPECIMEN / UnknownVenipuncture / Ukolzog2702/15/2025 12:56 PM EDT02/15/2025 12:56 PM EDT Narrative Authorizing ProviderResult TypeResult StatusKajustin Martin APRNEstefanyCNPLABORATORY Final ResultPerforming OrganizationAddressCity/State/ZIP CodePhone Number [facility] [address] [facility] [address] [place] [address], * HEP REMOTE PANEL BL (03/04/2021 1:39 PM EDT)ComponentValueRef RangeTest Method Analysis TimePerformed AtPathologist SignatureHep B Core Ab, TotalNegative Qkabdvxa39/21/2021 6:54 PM EDTCleveland Clinic LaboratoriesHep C Antibody IA GhkexrjiIibltyek92/21/2021 6:55 PM EDTCleveland Clinic LaboratoriesHBsAg IojyfnrwDnwoyeze98/21/2021 6:54 PM EDTCleveland [facility] LaboratoriesHep B Surface Ab, JbzaIsfmmjpjQuurvxsg08/21/2021 6:55 PM EDTCleveland [facility] LaboratoriesComment:NEGATIVESpecimen (Source)Anatomical Location / Laterality Collection Method / VolumeCollection TimeReceived WebkUrsqy62/21/2021 1:39 PM EDT03/04/2021 1:41 PM EDT Narrative Authorizing ProviderResult TypeResult StatusZulema Mclean MDLABORATORYFinal ResultPerforming OrganizationAddressCity/State/ZIP CodePhone Number [facility] [address] [facility] [place] [address] [facility] [address] [place] [address] * HIV AB 1&2 SCREEN (01/05/2006 3:17 PM EDT)ComponentValueRef RangeTest Method Analysis TimePerformed AtPathologist SignatureHIV 1 & 2 Ab (EIA)Non ReactiveNR [facility] LABComment: If results are indeterminate or otherwise inconsistent with an individual's clinical presentation or risk profile for HIV infection a repeat specimen is requested. A repeat specimen is also recommended for any individual identified positive for the first time. Specimen (Source)Anatomical Location / LateralityCollection Method / Volume Collection TimeReceived Time01/05/2006 3:17 PM EDT Narrative Authorizing ProviderResult TypeResult StatusWade CardORATORYFinal Result Performing OrganizationAddressCity/State/ZIP CodePhone Number [facility] [address] [place] [address] from Last 3 Months or Most Recently Relevant to Health Maintenance Insurance Care Teams Team MemberRelationshipSpecialtyStart DateEnd Jesus Camacho MD [address] [place] [address] PCP - GeneralFamily Medicine05/12/23 Jesus Camacho MD ReferringFamily Medicine01/14/21 Jesus Camacho MD [address] [place] [address] Referringmily Medicine05/12/23
--- OUTSIDE RECORDS SUMMARY | 2025-07-24 06:56 | XMS_ITS | Patient Health Record ---
Author Organization [facility] in [place] Address [address] [place] [address] Care Team Providers Care Airport Sales Agent Name Role Phone Eric Camacho Primary Care Provider [phone] Allergies No Known Allergies Results Component Value Reference Range Notes CBC AUTO DIFF Reviewed date:02/02/2025 08:06:47 PM Interpretation: Performing Lab: Notes/Report: [facility] , White Blood Count 8.3 4.0-11.0 10 3/uL Red Blood Count4.294.20-5.40 10 6/jMIvgbmkxzob89.912.0-16.0 g/sSZbllvanrwz21.6 36.0-48.0 %Mean Corpuscular Lqjilt50.381.0-99.0 fLMean Corpuscular Hemoglobin 30.126.7-34.0 pgMean Corpuscular HGB Conc32.629.9-35.2 g/dLRed Cell Distribution Width13.011.0-15.0 %Platelet Mtvup386187-126 10 3/uLMean Platelet Jfczud07.09.5- 13.5 fLNeutrophils Percent Auto55.743.0-75.0 %Lymphocytes Percent Auto32.220.5- 60.0 %Monocytes Percent Auto9.71.7-12.0 %Eosinophils Percent Auto1.30.9-7.0 % Basophils Percent Auto0.70.2-2.0 %Immature Granulocytes Pct Auto0.40.0-0.5 % Neutrophils Absolute Auto4.61.4-6.5 10 3/uLLymphocytes Absolute Auto2.71.2-3.8 10 3/uLMonocytes Absolute Auto0.80.3-0.8 10 3/uLEosinophils Absolute Auto0.10.0- 0.7 10 3/uLBasophils Absolute Auto0.10.0-0.1 10 3/uLImmature Granulocytes Abs Auto0.030.00-0.03 10 3/uLPerforming Lab:see noteML - [place] FREE T3 Reviewed date:02/02/2025 08:06:47 PM Interpretation: Performing Lab: Notes/Report: [facility] ,Free T33.022.18-3.98 pg/mLPerforming Lab:see note - [place] IRON Reviewed date:02/02/2025 08:06:47 PM Interpretation: Performing Lab: Notes/Report: [facility] ,Iron43.050.0-170.0 ug/dLPerforming Lab:see note - [place] PROF 14(COMP METB) Reviewed date:02/02/2025 08:06:47 PM Interpretation: Performing Lab: Notes/Report: [facility] ,[place]87169-887 mmol/LPotassium4.53.5-5.1 mmol/MYpdxcbxr79992-132 mmol/LCarbon Tsoynvg21.321.0-32.0 mmol/LAnion Gap16.2Loxeqdh50474-949 mg/dLBlood Urea Xqgjpkqp14.07.0-18.0 mg/dLCreatinine1.360.55-1.02 mg/dLEstimated GFR ( Ouiylnf84>=60 mL/min/1.73m 2Estimated GFR (Non- Ame42>=60 mL/min/1.73m 2 BUN Creatinine Ratio13.7Bbyptpj6.98.5-10.1 mg/dLBilirubin Total0.30.2-1.0 mg/dL Aspartate Amino Mpnehgrwgqu7890-37 U/LAlanine Qdtoumwoqsbfkdns6439-98 U/L Alkaline Knqmnhoxkve5363-592 U/LTotal Protein6.86.4-8.2 g/dLAlbumin Level3.83.4- 5.0 g/dLGlobulin3.0Albumin Globulin Ratio1.3Performing Lab:see noteML - [facility] LBT4 Reviewed date:02/02/2025 08:06:47 PM Interpretation: Performing Lab: Notes/Report: [facility] ,T4 Thyroxine9.204.80-13.90 ug/dLPerforming Lab:see noteML - [facility] LBTSH Reviewed date:02/02/2025 08:06:48 PM Interpretation: Performing Lab: Notes/Report: [facility] ,Thyroid Stimulating Hormone2.6190.358-3.740 uIU/mLPerforming Lab:see noteML - [facility] LBXR thoracic spine 2V Reviewed date:05/17/2025 06:08:33 PM Interpretation: Performing Lab: Notes/Report: Source Facility: [place] [address] XRay Report Signed Patient: DEON PICHARDO MR#: [id number] : 1975 Acct:[id number] Age/Sex: 49 / F ADM Date: 05/17/25 Loc: RAD Attending Dr: Chantal Starr NP Ordering Physician: Chantal Starr NP Date of Service: 05/17/25 Procedure(s): XR thoracic spine 2V Accession Number(s): [id number] cc: Chantal Starr NP; Jesus Camacho M.D. [place] [address] Patient Name: DEON PICHARDO MRN: [facility]:[id number] date: 1975 Sex: F Assigned Patient Location: [facility] Current Patient Location: RAD Accession/Order Number: [id number] Exam Date: 05/17/2025 14:05 Report Date: 05/17/2025 15:07 At the request of: CHANTAL STARR NP Procedure: XR thoracic spine 2V THORACIC SPINE - - 2 views CLINICAL HISTORY: Thoracic Radiculopathy COMPARISON: None FINDINGS: Bones are grossly demineralized. Vertebral body heights appear maintained. Endplate degenerative changes. Mild scoliosis. Pedicles appear intact. XR/XR thoracic spine 2V IMPRESSION: MILD SCOLIOSIS WITH DEGENERATIVE CHANGE. NO ACUTE BONY PROCESS IS SEEN. Impression dictated by: Rainer Martinez Jr., D.O. 05/17/2025 3:07 PM Dictation Location: [place] [address] Electronically authenticated by: [id number] Y Date: 05/17/2025 15:07 Dictated By: Rainer Martinez M.D. Signed By: 05/17/25 1510 DD/ 1507 TD/TT: Cold Type Composing Machine Operator:Mammogram Reviewed date:09/16/2024 02:53:56 PM Interpretation:undefined Performing Lab: Notes/Report: undefinedCOVID-19, Flu A+B IH Reviewed date:02/02/2025 08:06:48 PM Interpretation: Performing Lab: Notes/Report: COVIDPOSITIVEFLU AnegFLU BnegControlpresentPROF CHEM 8 (BAS METB) Reviewed date:02/08/2025 07:39:28 PM Interpretation: Performing Lab: Notes/Report: [facility] ,Agpzwd740968-833 mmol/LPotassium4.33.5-5.1 mmol/GEcnwhrpf19316-019 mmol/LCarbon Qkjcehn65.921.0-32.0 mmol/LAnion Gap13.2Mnwqggv0450-450 mg/dLBlood Urea Nitrogen 17.07.0-18.0 mg/dLCreatinine0.850.55-1.02 mg/dLEstimated GFR ( Vera>60 >=60 mL/min/1.73m 2Estimated GFR (Non- Kylah>60>=60 mL/min/1.73m 2BUN Creatinine Ratio20.8Xyjiybb3.28.5-10.1 mg/dLPerforming Lab:see noteML - [facility] LBVITAMIN D 25 [place] Reviewed date:02/02/2025 08:06:48 PM Interpretation: Performing Lab: Notes/Report: [facility] ,Vitamin D32.7 >100 ng/mL Potential Toxicity 30-100 ng/mL Vit D sufficient <20 ng/mL Vit D deficient 20-<30 ng/mL Vit D insufficient Performing Lab:see noteML - [facility] LB Reason For Referral No Information Medications Medication SIG (Take, Route, Frequency, Duration) Notes Start Date End Date Status levoFLOXacin 750 MG 1 tablet Orally Once a day; Duration: 10 days 06/08/2025tiveGlycopyrrolate 1 MG1 tablet Orally Once a dayActiveIbuprofen 800 MG1 tablet with food or milk as needed Orally every 8 hrs; Duration: 25 days ActiveIpratropium-Albuterol 0.5-2.5 (3) MG/3MLUSE 1 VIAL INHALATION EVERY 6 HOURS NEEDED; Duration: 30ActiveLactulose 20 GM/30ML30 ml Orally Once a day - up to bid; Duration: 30 daysActiveLancets 33G -Use 1 lancet to check glucose once daily; Duration: 90 03/06/2023ctiveHYDROcodone-Acetaminophen 5-325 MG1 tablet as needed Orally every 6 hrs; Duration: 7 days06/07/2025tive Levothyroxine Sodium 50 MCGTAKE 1 TABLET BY MOUTH EVERY DAY IN THE MORNING ON EMPTY STOMACH FOR 30 DAYS; Duration: 90ActiveLodine 400 MG1 tablet with food Orally Twice a dayActiveFarxiga 5 MGTAKE 1 TABLET BY MOUTH EVERY DAY; Duration: 90ActivelamoTRIgine 200 MGTAKE 3 TABLETS BY MOUTH ONCE DAILY; Duration: 90Active Lubiprostone 24 MCGTAKE 1 CAPSULE BY MOUTH TWICE A DAY; Duration: 90Active metFORMIN HCl 500 mgTAKE 2 TABLETS BY MOUTH TWICE DAILY; Duration: 30Active Myrbetriq 50 MG1 tablet Orally Once a day; Duration: 30 days06/22/2024ctive Albuterol Sulfate (2.5 MG/3ML) 0.083%3 mL as needed Inhalation every 6 hrs; Duration: 30 daysActiveNebulizer Mask and Tubing-Adult - use daily with neb solution; Duration: 365 days DX j44.9 DX:j44.909ctiveBlood Glucose Monitor System w/DeviceUse Device to check glucose every day; Duration: 03/06/2023ctiveOndansetron HCl 4 MGTAKE 1 TABLET BY MOUTH EVERY 6 HOURS NEEDED FOR NAUSEA/VOMITING 30 DAYS; Duration: 30ActiveBlood Glucose Test -Use 1 strip In Vitro daily; Duration: 90 days 03/06/2023ctivePioglitazone HCl 15 MGTAKE 1 TABLET BY MOUTH EVERY DAY FOR 30 DAYS; Duration: 90ActiveBudesonide 1 MG/2ML1 mL Inhalation Once a day DX J44.9; Duration: 90 daysActivePlaquenil 200 MGas directed Orally bidActiveCetirizine HCl 10 MG1 tablet Orally Once a day; Duration: 30 days05/04/2024ctive Dexlansoprazole 60 MGTAKE 1 CAPSULE BY MOUTH TWICE A DAY; Duration: 90Active Doxepin HCl 10 MGTAKE 1 CAPSULE BY MOUTH THREE TIMES A DAY FOR 30 DAYS; Duration: 90ActiveDULoxetine HCl 60 MGTAKE 1 CAPSULE BY MOUTH EVERY DAY Oral; Duration: 30 DaysActive Immunizations Vaccine Route Administration Date Status Comme nts Flu, Flucelvax (9493-1898) (08993) 6 mos +, single-dose syringe IM Intramuscular 06/29/2023 Administered Social History Tobacco Use: Social History Observation Description Date Details (start date - stop date) Former Smoker 09/14/1993 - 09/14/2009 Tobacco Use/Smoking Question Answer Notes Patient is a former smoker When did you start smoking?09/14/1993When did you stop smoking?09/14/2009lcohol Screen (Audit-C) Question Answer Notes Did you have a drink containing alcohol in the p ast year? No Apkjyp0QpflbyonrecemqPmgsqwgyWPOBX-Q (Standard) Question Answer Notes Did you have a drink containing alcohol in the p ast year? No Uqvhdr5UkpivtqipjgguqRnkupsmi Problems Problem Type SNOMED Code ICD Code Onset Dates Problem Status W/U Status Risk Notes Problem Iron deficiency anemia (37990845 ) Iron deficiency anemia, unspecified (D50.9) ActiveconfirmedProblemHypothyroidism (69269255)Hypothyroidism, unspecified (E03.9)ActiveconfirmedProblemChronic obstructive pulmonary disease (84044313) Chronic obstructive pulmonary disease, unspecified (J44.9)ActiveconfirmedProblem Benign neoplasm of meninges (893366520)Benign neoplasm of meninges, unspecified (D32.9)ActiveconfirmedProblemNon-toxic single thyroid nodule (716231373)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)ActiveconfirmedProblemBrachial plexus disorder (6430822)Brachial plexus disorders (G54.0)ActiveconfirmedProblemDegeneration of cervical intervertebral disc (68657488)Other cervical disc degeneration, unspecified cervical region (M50.30)ActiveconfirmedProblemDegeneration of lumbar intervertebral disc (39831077)Other intervertebral disc degeneration, lumbar region (M51.36)ActiveconfirmedProblemFibromyalgia (495677189)Fibromyalgia (M79.7)ActiveconfirmedProblemRight upper quadrant pain (505450716)Right upper quadrant pain (R10.11)ActiveconfirmedProblemNausea (054208057)Nausea (R11.0) ActiveconfirmedProblemVomiting (722040437)Vomiting, unspecified (R11.10)Active confirmedProblemFatigue (72421508)Fatigue (R53.83)ActiveconfirmedProblem Hypertension (11098254)Hypertension (I10)ActiveconfirmedProblemCOPD - Chronic obstructive pulmonary disease (86604707)COPD (chronic obstructive pulmonary disease) (J44.9)ActiveconfirmedProblemGastroesophageal reflux disease (477027018)GERD (gastroesophageal reflux disease) (K21.9)ActiveconfirmedProblem Obstructive sleep apnea syndrome (22584654)MAREK (obstructive sleep apnea) (G47.33)ActiveconfirmedProblemEczema (53130388)Eczema (L30.9)Activeconfirmed ProblemEpigastric pain (41980358)Epigastric abdominal pain (R10.13)Active confirmedProblemVitamin D deficiency (77654610)Vitamin D deficiency (E55.9) ActiveconfirmedProblemDisorder of lumbar disc (839638279)Lumbar disc disease (M51.9)ActiveconfirmedProblemConstipation (11084802)Constipation (K59.00)Active confirmedProblemWell adult (174351598)Well adult (Z00.00)ActiveconfirmedProblem Solitary nodule of lung (030049543)Lung nodule (R91.1)ActiveconfirmedProblem Paresthesia (86571681)Paresthesia (R20.2)ActiveconfirmedProblemBenign neoplasm of cerebral meninges (02824928)Meningioma (D32.9)ActiveconfirmedProblemChest wall pain (234908158)Chest wall pain (R07.89)ActiveconfirmedProblemFibromyalgia (706960533)Fibromyalgia (M79.7)ActiveconfirmedProblemTension headache (471642678)Tension headache (G44.209)ActiveconfirmedProblemBursitis of left shoulder (974742015161125)Bursitis of shoulder, left (M75.52)Activeconfirmed ProblemExcessive sweating (45023249)Excessive sweating (R61)Activeconfirmed ProblemChronic obstructive pulmonary disease (14792148)Advanced COPD (J44.9) ActiveconfirmedProblemMixed anxiety and depressive disorder (622401595)Anxiety and depression (F41.9)ActiveconfirmedProblemAnkle edema (43156772)Ankle edema (M25.473)ActiveconfirmedProblemAbnormal PFTs (R94.2)ActiveconfirmedProblem Irritable bowel syndrome (05046294)Irritable bowel syndrome (IBS) (K58.9)Active confirmedProblemType II diabetes mellitus without complication (518689766) Controlled type 2 diabetes mellitus (E11.9)ActiveconfirmedProblemObese class III (finding) (661321688)Obesity, class 3 (E66.813)Activeconfirmed Vital Signs Heart Rate 83 /min 03/20/2025 Eotobytzvnh21.5 degrees Njjebuvkck12/23/0585Glpvwgsd00 %03/20/2025lood pressure alyrxqvdz66 mm Hg06/07/20252158Hvomvw53.5 in06/07/2025lood pressure jewfgmuj861 mm Hg06/07/20250144Vxytut384.0 lbs06/07/2025BMI40.96 kg/m206/07/2025 Procedures Procedure Date Ordered Date Performed Result Body Sit e CARDIO Echocardiogram 05/25/2025 N/A Encounters Encounter Location Date Provider Diagnosis [facility] [address] [place] [address] 05/28/2025 Eric Camacho Iron deficiency anem ia, unspecified D50.9 [facility] [address] [place] [address] 06/08/2025 Eric Camacho [facility] [place] [address] 06/23/2025Doug [facility] [place] [address]/Doug [facility] [place] [address]/Doug [facility] [place] [address]/03/2025Doug [facility] [place] [address]/11/2024Doug [facility] [place] [address]/01/2025 Eric [facility] [place] [address]/01/2025Doug [facility] [place] [address]/03/2025Doug [facility] [place] [address]/04/2025Doug [facility] [place] [address]/Doug [facility] [facility] [place] [address]/11/2024 Eric [facility] [place] [address] 12/12/2024Doug HoyIron deficiency anemia, unspecified D50.9B[facility] [place] [address]/10/2024Doug [facility] [place] [address]/ Eric HoyAbnormal renal function N28.9B[facility] [place] [address]/Doug [facility] [facility] [place] [address]/[facility] [facility] [place] [address]/01/2024 [facility] [facility] [place] [address]/oug [facility] [facility] [place] [address]/oug [facility] [facility] [place] [address]/02/2025Doug [facility] [facility] [place] [address]/Doug HoyBenign neoplasm of meninges, unspecified D32.9 ; Obesity, class 3 E66.813 ; Chronic obstructive pulmonary disease, unspecified J44.9 ; Advanced COPD J44.9 and COPD (chronic obstructive pulmonary disease) J44.9B[facility] [facility] [place] [address]/03/2025Doug HoyChronic obstructive pulmonary disease, unspecified J44.9BMichel[place] [address] [facility] [place] [address]/07/2025Doug HoyWell adult Z00.00 ; Vitamin D deficiency E55.9 ; Nontoxic single thyroid nodule E04.1 and Murmur R01.1BWe[facility]bro[facility] [facility] [place] [address]/ Eric HoyCOPD (chronic obstructive pulmonary disease) J44.9B[facility] [facility] [place] [address]/oug HoyAcute bronchitis, unspecified organism J20.9BMichelle [place] [address] [facility] [place] [address]/Doug HoyChest wall pain R07.89Bu[facility] [address] [place] [address] Eric HoyHypotension I95.9 Assessments Encounter Date Diagnosis (ICD Code) Assessment Notes Treatment Notes Treatment Clinical Notes Section Notes 08/10/2024 COPD (chronic obstructive pulmon kt disease) (ICD-10 - J44.9) 4Acute bronchitis, unspecified organism (ICD-10 - J20.9)Rest and drink more liquids, especially water. You may use a humidifier or vaporizer to help keep the drainage moist. Xhfp-cxx-mejqsnx Nasal Saline may help the stuffy and runny nose. Use Ibuprofen and or Tylenol as needed for fever, chills, body aches or pain. Children 5 years old should not be given dhrj-ucz-yubiirm cough and cold medications such as guaifenesin and dextromethorphan. If you're over age 5, you may try ryqw-uwx-kzjuxcj cold medications such as guaifenesin and dextromethorphan, or multi-symptom cold reliever such as Dayquil to help reduce the symptoms. Antibiotics have been prescribed. You should take these until completed and follow the directions. Antibiotics can sometimescause upset stomach, and in rare cases, serious [...] go to the emergency room or call [phone] neoplasm of meninges, unspecified (ICD-10 - D32.9)02/02/2025Obesity, class 3 (ICD-10 - E66.813)02/08/2025Hypotension (ICD-10 - I95.9)5Chronic obstructive pulmonary disease, unspecified (ICD-10 - J44.9)05/25/2025Well adult (ICD-10 - Z00.00)5Chest wall pain (ICD-10 - R07.89)12/12/2024Iron deficiency anemia, unspecified (ICD-10 - D50.9)02/02/2025bnormal renal function (ICD-10 - N28.9)05/28/2025Iron deficiency anemia, unspecified (ICD-10 - D50.9) 05/25/2025Vitamin D deficiency (ICD-10 - E55.9)05/25/2025Nontoxic single thyroid nodule (ICD-10 - E04.1)02/02/2025hronic obstructive pulmonary disease, unspecified (ICD-10 - J44.9)02/02/2025dvanced COPD (ICD-10 - J44.9)02/02/2025 COPD (chronic obstructive pulmonary disease) (ICD-10 - J44.9)05/25/2025Murmur (ICD-10 - R01.1) Plan Of Treatment Pending Test Test Name Order Date GLUCOSE - IN OFFICE 02/12/2023 CMP (COMPLETE METABOLIC PANEL) 4 CMP (COMPLETE METABOLIC PANEL) 3 HEMOGLOBIN A1C (GLYCO) 05/15/2023 HEMOGLOBIN A1C (GLYCO) 04/14/2024 HEMOGLOBIN A1C (GLYCO) 05/25/2025 IRON, TOTAL 05/25/2025 IRON, TOTAL 02/02/2025 IRON, TOTAL 04/14/2024 LIPID PANEL (CHOL/TRIG/HDL/LDL) 04/14/20 24 LIPID PANEL (CHOL/TRIG/HDL/LDL) 05/25/20 25 LIPID PANEL (CHOL/TRIG/HDL/LDL) 05/15/20 23 CBC WITH DIFF 05/15/2023 CBC WITH DIFF 04/14/2024 VITAMIN D, 25 LEVEL (TOTAL) 04/14/2024 VITAMIN D, 25 LEVEL (TOTAL) 05/25/2025 VITAMIN D, 25 LEVEL (TOTAL) 02/02/2025 MRI Brain w/wo contrast * 04/10/2023 NUC MED [place]ida with Ejection Fraction * CARDIO Echocardiogram 05/25/2025 Insulin Level 04/14/2024 Insulin Level 05/25/2025 BMP - Basic Metabolic Panel 02/02/2025 CBC W/AUTO DIFF 05/28/2025 CBC W/AUTO DIFF 11/09/2023 STOOL OCCULT BLOOD 05/15/2023 US Renal and Bladder 02/02/2025 CBC AUTO DIFF 12/12/2024 CBC AUTO DIFF 04/10/2023 FERRITIN 04/10/2023 FERRITIN 05/28/2025 FERRITIN 11/09/2023 FERRITIN 05/20/2023 FERRITIN 12/12/2024 IRON 12/12/2024 IRON 05/20/2023 IRON 11/09/2023 IRON 05/28/2025 IRON 04/10/2023 MAGNESIUM 05/25/2025 PHOSPHORUS 05/25/2025 VIT B12 AND FOLATE 05/25/2025 VIT B12 AND FOLATE 04/14/2024 VITAMIN D 25 [place] 05/25/2025 CT CHEST WO CON 06/07/2025 MRI CSPINE WO CON 01/15/2024 MRI LSPINE [...] MEDIBLUE DUAL ADV PRIMARY MEDICARE [address] [place] [address] [id number] Malick Pichardoelf - patient is the insuredMEDICAGEORGE [facility] [address] OFF[place] OF [place], [place] [phone], MandieSelf - patient is the insuredMEDICARE [facility] [address] [address] [place] [id number], MandieSelf - patient is the insured 2009 Medications Administered Medication Instructions Date of Administration Dosage Notes Dexamethasone, 4mg/mL mgDexamethasone, 4mg/mL mgKenalog-400 mg80 Ketorolac Wusxdhnxgfgd18/03/914372 ul56Twdfzxtum Zdlyrhbraybf44/24/091982 mg Orphenadrine Njijjrm55 fu99Jtcvrgduyore Yzjfzyx110 mg Promethazine, 25 mg5 mg25 Medical (General) History Medical History History ICD Code Tension headache G44.209 Abnormal PFTs R94.2 Ankle edema M25.473 Fibromyalgia M79.7 Epigastric abdominal pain R10.13 MAREK (obstructive sleep apnea) G47.33 Lung nodule R91.1 rectal bleeding Excessive ijokswqdK88PdrzctqJ13Xikprzlctg type 2 diabetes ubjjbbiwQ95.9Lumbar disc ipsxgqrK99.9Acid fmgtsvU21.9Brachial plexus vsuznnftqB13.0Chronic obstructive pulmonary disease, vzseyavnihsV57.3StglhmmqekimB91Xrjseabyb bowel syndrome (IBS)K58.7HndlcnD00.9YgodhmxrjuiL01.2Anxiety and qrnyumusnjR29.9 Surgical History Surgery Date(Month/Year) C5-C6 transforaminal epidural steroid in jection 04/24/2025 craniotomy 02/20/25 Left C4-5, 5-6 radiofrequency ablation 1 09/17/2023 Repair of bones in left arm d/t fracture Right rib removalRt Radius core Decompression with Dr. Jimenez Tunnel x2 on right, x1 leftCubital Tunnel, sssjv3330Zsadhdbpptah
--- OUTSIDE RECORDS SUMMARY | 2025-07-24 06:56 | XMS_ITS | Clinical Summary ---
Author Organization [facility] Address [address] [place] [address] Phone Care Team Providers Care Ceo Name Role Phone Unavailable Primary Care Provider Unavailabl e Encounters DateTypeDepartmentCare QubyIxmeogybcnz62/03/2025Scanned Document [facility] [address] [place] [address] Scanning, Generic Provider from Last 3 Months Social History Tobacco UseTypesPacks/DayYears UsedDateSmoking Tobacco: Never Assessed CommentsUnknownSex and Gender InformationValueDate RecordedSex Assigned at Not on fileLegal QqbSdsfzg56/25/2022 4:19 PM ESTGender IdentityNot on fileSexual OrientationNot on file Plan of Treatment Not on file Procedures Procedure NamePriorityDate/TimeAssociated DiagnosisCommentsECHOCARDIOGRAM 07/17/2025 from Last 3 Months Results * Echocardiogram (07/17/2025) Narrative 07/17/2025 Ordered by an unspecified provider. Authorizing ProviderResult TypeResult StatusGeneric Provider ScanningCV ECHO PROCEDURESFinal Result from Last 3 Months
--- OUTSIDE RECORDS SUMMARY | 2025-07-24 06:56 | XMS_ITS | Encounter Summary ---
Author Organization [facility] Address [address] [facility] [place] [address] Care Team Providers Care Coating Supervisor Name Role Phone Jesus Camacho MD Primary Care Provider [phone] Encounter Details DateTypeDepartmentCare Team (Latest Contact Info)Snpskvxydmi44/27/2025amboo flowsheet [facility] [address] [address] Ash Greene MD [address] [address] Social History Tobacco UseTypesPacks/DayYears UsedDateSmoking Tobacco: FormerCigarettes Comments:>10 years since las t smoked Alcohol UseStandard Drinks/WeekCommentsYes0 (1 standard drink = 0.6 oz pure alcohol)caffeine: stackersCommentsUnknownSex and Gender InformationValue Date RecordedSex Assigned at BirthNot on fileLegal AkaTbdrmk65/15/2023 8:26 PM EDTGender IdentityNot on fileSexual OrientationNot on filedocumented as of this encounter Plan of Treatment DateTypeDepartmentCare Team (Latest Contact Info)Lmecskflpag19/24/2025 2:40 PM ESTOffice Visit [facility] [address] [place] [address] [place] [address] Ash Greene MD [address] [address] documented as of this encounter Visit Diagnoses Not on filedocumented in this encounter Care Teams Team MemberRelationshipSpecialtyStart DateEnd Date Jesus Camacho MD PCP - GeneralFamily Medicine03/12/23documented as of this encounter
--- OUTSIDE RECORDS SUMMARY | 2025-07-24 06:56 | XMS_ITS | Encounter Summary ---
Author Organization [facility] Address [address] [place] [address] Phone Care Team Providers Care Knowledge Architect Name Role Phone Unavailable Primary Care Provider Unavailabl e Encounter Details DateTypeDepartmentCare Team (Latest Contact Info)Crdedwfpkzz69/03/2025Scanned Document [facility] [address] [place] [phone] Scanning, Generic Provider Social History Tobacco UseTypesPacks/DayYears UsedDateSmoking Tobacco: Never Assessed CommentsUnknownSex and Gender InformationValueDate RecordedSex Assigned at Not on fileLegal DbsCronhe88/25/2022 4:19 PM ESTGender IdentityNot on fileSexual OrientationNot on filedocumented as of this encounter Plan of Treatment Not on file documented as of this encounter Procedures Procedure NamePriorityDate/TimeAssociated DiagnosisCommentsECHOCARDIOGRAM 07/17/2025 documented in this encounter Results * Echocardiogram (07/17/2025) Narrative 07/17/2025 Ordered by an unspecified provider. Authorizing ProviderResult TypeResult StatusGeneric Provider ScanningCV ECHO PROCEDURESFinal Result documented in this encounter Visit Diagnoses Not on filedocumented in this encounter
--- OUTSIDE RECORDS SUMMARY | 2025-07-24 06:56 | XMS_ITS | Encounter Summary ---
Author Organization [facility] Address [address] [place] [address] Care Team Providers Care Cafeteria Cook Name Role Phone Jesus Camacho MD Unavailable [phone] Jesus Camacho MD Unavailable [phone] Jesus Camacho MD Primary Care Provider [phone] Source Comments In the event this information is protected by the Federal Confidentiality of Alcohol and Drug AbusePatient Records regulations: The Federal rules restrict any use of the information to criminally investigate or prosecute any alcohol or drug abuse patient.[facility] Reason for Visit * ReasonCommentsRefill Request Encounter Details DateTypeDepartmentCare Team (Latest Contact Info)Gqfkflpizup78/09/2025Refill Rheumatology [address] [place], [place] [phone] Zulema Mclean MD [address] [facility] [address] [place] [address] Refill Request Social History Tobacco UseTypesPacks/DayYears UsedDateSmoking Tobacco: FormerSmokeless Tobacco: Never Comments:Started 1994. Quit 2009. 1 ppd Alcohol UseStandard Drinks/WeekCommentsYes0 (1 standard drink = 0.6 oz pure alcohol)3-4 drinks on occasionPHQ-2AnswerDate RecordedPHQ-2 rpexn7685Area Deprivation IndexAnswerDate RecordedNational Score (1-100), lower number is lower arph272006/01/2023State Score (1-10), lower number is lower uifd54206/01/2023 Data from: https://www.neighborhoodatlas.[facility].edu/. 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]09/05/2025 11:00 AM [facility] [address] [place] [address] Renée De La O, LIBRARY HELPER.MARINE PIPEFITTER HELPER [address] [facility] [address] [place] [address] 6 Month Follow Up12/21/2025 2:20 PM EDTOffice Visit Rheumatology [address] [place] [address] Zulema Mclean MD [address] [facility] [address] [place], [place] [phone] 6 mo follow updocumented as of this encounter Visit Diagnoses Not on filedocumented in this encounter Care Teams Team MemberRelationshipSpecialtyStart DateEnd Date Jesus Camacho MD [address] [place] [address] [facility] - [facility]23 Jesus Camacho MD [facility]erring[facility] Medicine01/14/21 Jesus Camacho MD [address] [place] [address] [facility]05/12/23documented as of this encounter
--- OUTSIDE RECORDS SUMMARY | 2025-07-24 06:56 | XMS_ITS | Encounter Summary ---
Author Organization [facility] Address [address] [place] [address] Care Team Providers Care Glass Unloading Equipment Tender Name Role Phone Jesus Camacho MD Primary Care Provider [phone] Encounter Details DateTypeDepartmentCare Team (Latest Contact Info)Jqfizxtktmq64/27/2025Orders Only [facility] External Department Unsolicited Ash Greene MD [address] [address] Social History Tobacco UseTypesPacks/DayYears UsedDateSmoking Tobacco: FormerCigarettes Comments:>10 years since las t smoked Alcohol UseStandard Drinks/WeekCommentsYes0 (1 standard drink = 0.6 oz pure alcohol)caffeine: stackersCommentsUnknownSex and Gender InformationValue Date RecordedSex Assigned at BirthNot on fileLegal UhoVmehzy06/15/2023 8:26 PM EDTGender IdentityNot on fileSexual OrientationNot on filedocumented as of this encounter Plan of Treatment DateTypeDepartmentCare Team (Latest Contact Info)Bjyxlspndzm69/24/2025 2:40 PM ESTOffice Visit [facility] [address] [phone] Ash Greene MD [address] [address] documented as of this encounter Procedures Procedure NamePriorityDate/TimeAssociated DiagnosisCommentsPNEUMOCOCCAL AB (23 SEROTYPE)Jtzzdcb6207/10/2025 3:43 PM EDT DIPHTHERIA / TETANUS ANTIBODY RPYBEWyygpbm35/27/2025 3:43 PM EDT HYPERCOAG PANEL IRCSFUSjxjsgb00/27/2025 3:43 PM EDT CBC (INCLUDES DIFF/PLT)Lixujbu1707/10/2025 3:43 PM EDT IMMUNOGLOBULIN KSnnuqpp44/27/2025 3:43 PM EDT IMMUNOGLOBULIN GSgqhttl67/27/2025 3:43 PM EDT IMMUNOGLOBULIN JOewxzgi82/27/2025 3:43 PM EDT IMMUNOGLOBULIN REnqigtz95/27/2025 3:43 PM EDT documented in this encounter Results * IgE (07/10/2025 3:43 PM EDT)ComponentValueRef RangeTest MethodAnalysis Time Performed AtPathologist SignatureIMMUNOGLOBULIN E, QBCHD619 - 495 IU/mLL[facility]P Specimen (Source)Anatomical Location / LateralityCollection Method / Volume Collection TimeReceived Time07/10/2025 3:43 PM EDT1 Narrative [facility] - 07/13/2025 8:35 AM EDT Performed at: 02 - [facility] ??[id number] Color Grinder: Lila Cadena MD, Phone: ??[phone] Authorizing ProviderResult TypeResult StatusToanais VAN BLOOD ORDERABLESFinal ResultPerforming OrganizationAddressCity/State/ZIP CodePhone Number [facility] * (ABNORMAL) Diphtheria / Tetanus Antibody Panel (07/10/2025 3:43 PM EDT) ComponentValueRef RangeTest MethodAnalysis TimePerformed AtPathologist SignatureTETANUS ANTITOXOID IGG AB1.19<0.10 IU/mLLABCORPComment: ? Interpretation: Non-Protective <0.10 Protective >=0.10 Results for this test are for research purposes only by the assay's banking attorney. ??The performance characteristics of this product have [...] 8:35 AM EDT Performed at: 02 - [address] ??[id number] Color Grinder: Lila Cadena MD, Phone: ??[phone] Authorizing ProviderResult TypeResult StatusTodd E Rambasek [facility] BLOOD ORDERABLESFinal ResultPerforming OrganizationAddressCity/State/[facility] CodePhone Number [facility] * (ABNORMAL) PNEUMOCOCCAL AB (23 SEROTYPE) (07/10/2025 [...] developed and its performance characteristics determined by [employer]. It has not been cleared or approved by the U.S. Food and Drug Administration. FLAG Interpretation: A = Abnormal, H = High, L = Low Specimen (Source)Anatomical Location / LateralityCollection Method / Volume Collection TimeReceived Time07/10/2025 3:43 PM EDT1 Narrative [facility] - 07/13/2025 8:35 AM EDT Performed at: - [facility] [address] ??[id number] Color Grinder: DENICE Witt PhDBC, Phone: ??[phone] Authorizing ProviderResult TypeResult StatusTodd E Rambasek MDLAB BLOOD ORDERABLESFinal ResultPerforming OrganizationAddressCity/State/ZIP CodePhone Number [facility] * IgM (07/10/2025 3:43 PM EDT)ComponentValueRef RangeTest MethodAnalysis Time Performed AtPathologist SignatureIMMUNOGLOBULIN M, QN, [id number] - 217 mg/dL [facility]PSpecimen (Source)Anatomical Location / LateralityCollection Method / VolumeCollection TimeReceived Time07/10/2025 3:43 PM EDT1 Narrative [facility] - 07/11/2025 8:35 AM EDT Performed at: 01 - [address] ??[id number] Color Grinder: Maxim Daniel PhD, Phone: ??[phone] Authorizing ProviderResult TypeResult StatusTodd E Rambasek MDLAB BLOOD ORDERABLESFinal ResultPerforming OrganizationAddressCity/State/ZIP CodePhone Number [facility] * IgA (07/10/2025 3:43 PM EDT)ComponentValueRef RangeTest MethodAnalysis Time Performed AtPathologist SignatureIMMUNOGLOBULIN A, QN, [id number] - 352 mg/dL [facility]PSpecimen (Source)Anatomical Location / LateralityCollection Method / VolumeCollection TimeReceived Time07/10/2025 3:43 PM EDT1 Narrative [facility] - 07/11/2025 8:35 AM EDT Performed at: 01 - [address] ??[id number] Color Grinder: Maxim Daniel PhD, Phone: ??[phone] Authorizing ProviderResult TypeResult StatusTodd E Rambasek MDLAB BLOOD ORDERABLESFinal ResultPerforming OrganizationAddressCity/State/ZIP CodePhone Number [facility] * IgG (07/10/2025 3:43 PM EDT)ComponentValueRef RangeTest MethodAnalysis Time Performed AtPathologist SignatureIMMUNOGLOBULIN G, QN, [id number] - 1,602 mg/dLLABCORPSpecimen (Source)Anatomical Location / LateralityCollection Method / VolumeCollection TimeReceived Time07/10/2025 3:43 PM EDT1 Narrative [facility] - 07/11/2025 8:35 AM EDT Performed at: [address] ??[id number] Color Grinder: Maxim Daniel PhD, Phone: ??[phone] Authorizing ProviderResult TypeResult StatusTodd E [employer] BLOOD ORDERABLESFinal ResultPerforming OrganizationAddressCity/State/ZIP CodePhone Number [facility] [...] - 07/11/2025 8:35 AM EDT Performed at: [address] ??[id number] Color Grinder: Maxim Daniel PhD, Phone: ??[phone] Authorizing ProviderResult TypeResult StatusTodd E RamIconic Therapeuticsk PinnattaLAB BLOOD ORDERABLESFinal ResultPerforming OrganizationAddressCity/State/ZIP CodePhone Number [facility] * (ABNORMAL) CBC and differential (07/10/2025 3:43 PM EDT)ComponentValueRef RangeTest MethodAnalysis TimePerformed AtPathologist SignatureWBC9.73.4 - 10.8 x10E3/uLLABCORPRBC4.443.77 - 5.28 x10E6/fNAIGSMMNHun87.711.1 - 15.9 g/dL GPAJGJTSny95.734.0 - 46.6 %VDXXCMJBZY7293 - 97 pBPTQIZXPXLU00.626.6 - 33.0 pg IGRMYAGFTKW23.831.5 - 35.7 g/gSXGSGZFJRXD47.311.7 - 15.4 %DECPKRSEefwvkwfu919 (H)150 - 450 x10E3/tATHVKENZNduaziafyld48Abu Estab. %BXAQEQFRrcjyd54Myh Estab. %BGHORJEOtmjiroaw1Ysw Estab. %ZGBMKCXFis9Ajo Estab. %INVVHYVXcvvm9Dse Estab. % [facility]ABC[facility]PNeutrophils Abs7.2(H)1.4 - 7.0 x10E3/uLLABCORPLymphs Abs1.80.7 - 3.1 x10E3/uLLABCORPMonocytesAbs0.60.1 - 0.9 x10E3/uLLABCORPEos Abs0.00.0 - 0.4 x10E3/uLLABCORPBaso Abs0.10.0 - 0.2 x10E3/uLLABCORPImmature Iwjfyystcyev5Fel Estab. %LABCORPImmature Grans Abs0.10.0 - 0.1 x10E3/uLLABCORPSpecimen (Source) Anatomical Location / LateralityCollection Method / VolumeCollection Time Received Time07/10/2025 3:43 PM EDT1 Narrative [facility] - 07/11/2025 8:35 AM EDT Performed at: - [facility] [address] ??[id number] Color Grinder: Maxim Daniel PhD, Phone: ??[phone] Authorizing ProviderResult TypeResult StatusToanais E Jc MCGHEELAB BLOOD ORDERABLESFinal ResultPerforming OrganizationAddressCity/State/ZIP CodePhone Number [facility] documented in this encounter Visit Diagnoses Not on filedocumented in this encounter Care Teams Team MemberRelationshipSpecialtyStart DateEnd Date Jesus Camacho MD PCP - GeneralFamily Medicine03/12/23documented as of this encounter
--- OUTSIDE RECORDS SUMMARY | 2025-07-24 06:56 | XMS_ITS | Clinical Summary ---
Author Organization [facility] Address [address] [facility] [place] [address] Care Team Providers Care Bistro Server Name Role Phone Unavailable Primary Care Provider Unavailabl e Source Comments The following information is NOT included in Care Everywhere downloads:Psychiatric notes, ECG results, Cardiac Rehab notes, Pulmonary Function notes, data from SmartForms (includes but not limited toPregnancy data,audiograms, eye exams, pre-surgical evaluation notes, well-child exam data).[facility] Active Problems ProblemNoted DateDiagnosed DateCorneal edema due to wearing of contact lenses 11/18/2004 Social History Tobacco UseTypesPacks/DayYears UsedDateSmoking Tobacco: Never Assessed CommentsUnknownSex and Gender InformationValueDate RecordedSex Assigned at Not on fileLegal VekYkfaqe10/04/2012 12:01 PM ESTGender IdentityNot on file Sexual OrientationNot on file Plan of Treatment Health MaintenanceDue DateLast OodmIorcbbygWwkenaldunh32/22/1978HIV Test 1992Hepatitis C Vcclfxxv06/22/1996Tdap Owiydvv7611/05/1995Hepatitis A (HAV) Vaccine (optional start 19+ years)1996Hepatitis B (HBV) Vaccine (1 of 3 - 19+ 3-dose series)1996Tetanus (Td or Tdap) Ughqisb4611/05/1996Pap Smear 11/05/19984030Uctqaltbwkz72/22/2018CRC Zxlcdofwz50/22/0150Dxqieoxkwgk75/22/2023 Cologuard (Stool DNA)2022FIT2022OVID-19 Vaccine ( - 2024- season)2025Influenza Vaccine (#1)2025Shingles (RZV) Vaccine (1 of 2) 2027Pneumococcal Vaccine(s)Aged OutNo longer eligible based on patient's age to complete this topic Insurance
--- OUTSIDE RECORDS SUMMARY | 2025-07-24 06:56 | XMS_ITS | Encounter Summary ---
Author Organization [facility] Address [address] [place] [address] Care Team Providers Care Homoeopath Name Role Phone Jesus Camacho MD Primary Care Provider [phone] Encounter Details DateTypeDepartmentCare Team (Latest Contact Info)Unpfinydyvr28/27/2025Travel Social History Tobacco UseTypesPacks/DayYears UsedDateSmoking Tobacco: FormerCigarettes Comments:>10 years since las t smoked Alcohol UseStandard Drinks/WeekCommentsYes0 (1 standard drink = 0.6 oz pure alcohol)caffeine: stackersCommentsUnknownSex and Gender InformationValue Date RecordedSex Assigned at BirthNot on fileLegal IckMklhve15/15/2023 8:26 PM EDTGender IdentityNot on fileSexual OrientationNot on filedocumented as of this encounter Plan of Treatment DateTypeDepartmentCare Team (Latest Contact Info)Jnvsoezgvfi41/24/2025 2:40 PM ESTOffice Visit [facility] [address] [place] [phone] Ash Greene MD [address] [address] documented as of this encounter Visit Diagnoses Not on filedocumented in this encounter Care Teams Team MemberRelationshipSpecialtyStart DateEnd Date Jesus Camacho MD PCP - GeneralFamily Medicine03/12/23documented as of this encounter
[2025-07-24 07:08] VITALS: BP 153/84; PULSE 90; TEMP 36.3; O2SAT 99
[2025-07-24 07:46] VITALS: BP 135/86; PULSE 92; PULSE 98; O2SAT 100
[2025-07-24 07:47] VITALS: BP 140/78
[2025-07-24] MEDS: LIDOCAINE HCL 2% 400 MG/20 ML MDV 4 ML INJ (07:51)
[2025-07-24] MEDS: BUPIVACAINE HCL 0.25% PF 25 MG/10 ML VIAL 2 ML INJ (07:52)
[2025-07-24] MEDS: DEXAMETHASONE SOD PHOS 10 MG/ML VIAL INJ (07:52)
--- NOTE | 2025-07-24 07:56 | P.ON_ITS ---
Date of procedure: 07/24/25 Pre-op diagnosis: Pain due to cervical spondylosis without myelopathy Post-op diagnosis: same as pre-op Procedure: Procedure: Left C4-5, 5-6 radiofrequency ablation Medications: Bupivacaine 0.25% 2cc, lidocaine 2% 3cc, dexamethasone 10mg The patient was seen and examined in the preoperative holding area.? The site was marked.? Written informed consent was obtained and placed on the chart.? The patient was brought to the medical procedure unit and placed in the prone position.? A timeout was completed verifying correct patient, procedure, positioning, and special requirements.? The skin overlying the target points, the designated medial branch, was prepped and draped in the usual sterile fashion.? The target point was achieved with a 20-gauge 15 cm with a 10 mm curved active tip radiofrequency cannula under direct fluoroscopic visualization.? The needle was inserted at level C4 on the left side. Needle tip position was confirmed with lateral fluoroscopic position.? Motor stimulation was carried out at 2 Hz up to 5 volts with the absence of extremity activity.? This was repeated at level C5, 6 on left side.?? Sensory stimulation was carried out.? Concordant pain was realized at the above- mentioned sites.? Then radiofrequency lesioning was carried out times 90 seconds at 80 degrees times 2 lesions at each level.? The radiofrequency probe was removed prior to cannula removal.? The above-mentioned injectate was placed in 1 mL increments.? The needle was removed.? Insertion sites were covered.? The patient was taken to the postoperative recovery area and monitored for an appropriate length of time before being found suitable for discharge in the company of a responsible adult. Anesthesia: Local Surgeon: Ridge Hollingsworth Pathology: none sent Condition: stable Disposition: no change
== END 2025-07-24 08:00 | disposition home or self-care (01) ==
PROVIDERS: PCP Family Medicine; Visit Provider Anesthesiology
DX: M47.812 Spondylosis without myelopathy or radiculopathy, cervical region (principal); M54.2 Cervicalgia; E11.8 Type 2 diabetes mellitus with unspecified complications; Z79.84 Long term (current) use of oral hypoglycemic drugs
CPT/HCPCS: 36415; 64633; 64634; J0665; J1100

== ENCOUNTER 2025-08-07 06:49 | Day surgery (SDC) | payer MEDICARE, MEDICAID, SELFPAY ==
--- OUTSIDE RECORDS SUMMARY | 2024-02-19 06:10 | XMS_ITS ---
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 Name Role Phone Jesus Camacho Primary Care Provider UnavailEtienne Stevenson Unavailable [phone] Haylie Lee Unavailable Reason For Referral Reason REFERRAL TO [facility] Diagnosis 1 Neck pain (M54.2) Referral Organization [facility] Referring Provider First Name Etienne Referring Provider Last Name [facility] Referring Provider Speciality Orthopedic Surgery Referred Organization Pain clinic General Notes Marielos Giron 2023 12:50:46 PM >, Marielos Giron 03/02/2024 08:51:27 AM >[facility]XED TO [facility] Referral Priority Routine REASON FOR VISIT Neck/low Back Pain Problems Problem Type SNOMED Code ICD Code Onset Dates Problem Status W/U Status Risk Notes Problem Displacement of lumb ar intervertebral disc without myelopathy (85965472) Other intervertebral disc displacement, 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) ActiveconfirmedProblemDegeneration of lumbosacral intervertebral disc (70613545) Other intervertebral disc degeneration, lumbosacral region (M51.37)Active confirmedProblemSpinal stenosis of lumbar region (04194749)Spinal stenosis, lumbosacral region (M48.07)ActiveconfirmedProblemSpinal stenosis in cervical region (25740754)Spinal stenosis, cervical region (M48.02)ActiveconfirmedProblem Displacement of cervical intervertebral disc without myelopathy (60562689)Other cervical disc displacement at C5-C6 level (M50.222)ActiveconfirmedProblem Displacement of cervical intervertebral disc without myelopathy (30544845)Other cervical disc displacement at C6-C7 level (M50.223)ActiveconfirmedProblem Cervical radiculopathy (45825630)Radiculopathy, cervical region (M54.12)Active confirmed Encounters Encounter Location Date Provider Diagnosis [address] [place] [address] 02/19/2024 [facility] Other intervertebral disc displacement, lumbosacral region [...] with patient. We will refer her to [facility] for NAKIA of C7/T1 and L5/S1. We [...] with patient. We will refer her to [facility] for NAKIA of C7/T1 and L5/S1. We [...] Date Lumbar spine, 4v flex ext - 81399 2023 Cervical spine,ap,lat,flex,ext - 25145 0 02/19/2024 SFS - Lumbar Spine PT Order, Isometrics & Strenghening w/Modalities as needed, 2-3 times per week for 6 weeks 02/19/2024 SFS - Cervical Spine PT Orde r, Isometrics & Strenghening w/Modalities as needed. 2-3 x Week for 4-6 Weeks 02/19/2024 Epidural injection - lumbar 02/19/2024 Referrals Referral Date Details 02/19/2024 02/19/2024, REFERRAL TO [facility] Next Appt Details Follow Up: prn, Reason: Progress Notes * DEON PICHARDO LDOB:[birth year] (49 yo F)Acc No.[id number]:02/19/2024 Patient:?DEON PICHARDO :?CRUZITO GibsonOB:1975???Age:48 Y???Sex:FemaleDate:02/19/2024hone:[phone]:[address] [facility] [facility]Uud:Jesus Camacho Subjective: * Chief Complaints: * 1 . Neck/low Back Pain. * HPI: ???General Follow Up Information:? Dictated by Haylie Seymour PA-C Thank you for referring your patient to see Dr. Byrne in surgical spine consultation at the [facility] [place]. 48-year-old female presents with [...] hot packs, TENS unit/Muscle stim, Back,Neck exercises, clinical care coordinator?.?What activities help the pain??sitting.? * ROS: ???Musculoskeletal:?Admits?Back Pain.?Admits?Neck Pain.? * Medical History: * Family History: N o Family History documented.. * Medications: N one Objective: * Vitals: P ain Scale (NRS): 6. * Examination: ???General examination: ???On examination, the patient is well-developed, well-nourished, well-groomed, alert and oriented x3, normal mood. Limited cervical ROM. Midline cervical tenderness to palpation. 5/5 muscle strength bilateral upper extremities. Sensation intact bilateral upper extremities. Negative Geovany sign bilaterally. Positive Spurling sign on the right, negative on the left. 2+ deep tendon reflexes bilateral upper extre mities. Limited lumbar ROM. Midline tender over the [...] cervical spine without contrast was reviewed from [facility] from 02/09/2024; Impression:C5-6 broad-based disc bulge with [...] lumbar spine without contrast was reviewed from [facility] from 02/09/2024; Impression:At L5-S1 there is a [...] ?Imaging: Lumbar spine, 4v flex ext - 29528 ?Imaging: Cervical spine,ap,lat,flex,ext - 77537 Notes: Patient evaluated and plan established by Dr. Byrne. Dr. Byrne reviewed patient's cervical and lumbar MRIs with patient. We will refer her to [facility] for NAKIA of C7/T1 and [...] Byrne. Best regards, ? Referral To: ?Reason:[facility] * Follow Up: p rn Forms: * Images: * Electronic signature of Haylie Lee PA-C on 08/07/2025 at 06:52 AM ESTSign off status: Pending * Provider: VIVEK Mckenzie Date: 0 02/19/2024 Generated for Printing/Faxing/eTransmitting on:?08/07/2025 06:52 AM EST History and Physical Notes * HPI (History of Present Illness) CategorySub-CategoryDetailNotesCategory NotesGeneral Follow Up Information Dictated by Haylie Seymour PA-C Thank you for referring your patient to see Dr. Byrne in surgical spine consultation at the [facility]. 48-year-old female presents with 20+ years of [...] cervical spine without contrast was reviewed from [facility] from 02/09/2024; Impression:C5-6 broad-based disc bulge with [...] lumbar spine without contrast was reviewed from [facility] from 02/09/2024; Impression:At L5-S1 there is a [...]
--- OUTSIDE RECORDS SUMMARY | 2025-08-04 09:05 | XMS_ITS | Continuity of Care Document ---
Author Organization 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 Name Role Phone Corinadamien DO PEREZBrody Unavailable Unavailable Allergies, Adverse Reactions, Alerts Substance Reaction Status Criticality No Known Allergies Active No Inform ation Medications Medication Instructions Dosage Effective Dates (start - stop) Status Comments Farxiga 5 mg tablet take 1 tablet [...] route every day 500 MCG - Active Depo-Provera 150 mg/mL intramuscular syringe inject 1 milliliter by intramuscular route every 3 months 150 MG - No Longer Active Problems Condition Type Effective Dates (start - stop) Clini [facility] Status Comments No Known Problems Procedures Procedure Date Levonorgestrel iu 52mg Vera 25 INSERT INTRAUTERINE DEVICE Levonorgestrel iu 52mg Vera 25 INSERT INTRAUTERINE DEVICE Levonorgestrel iu 52mg Vera 25 PREV VISIT, EST, AGE 40-64 DIAST BP 80-89 MM HG SYST BP> = 140 MM HG6 IT MED LIST DOCD IN [facility] RVW MEDS BY RX/DR IN [facility] Admin influenza virus vac FLU VACCINE NO PRESERV 3 & > Bitewings Four Films Prophylaxis Adult Moderate Risk [facility] [place] Dis Jun Oral Hygiene Instruction Periodic Oral Eval Estab Patient 2024 Depo Provera 1 Ml OFFICE/OUTPATIENT VISIT, EST Depo Provera 1 Ml OFFICE/OUTPATIENT VISIT, EST OFFICE/OUTPATIENT VISIT, EST Bp scrn perf rec interval DIAST BP < 80 MM HG SYST BP < 130 MM HG MED LIST DOCD IN [facility] RVW MEDS BY RX/DR IN [facility] Pt inelig neg scrn depres Moderate Risk Prophylaxis Adult [facility] [place] Dis Nov Oral Hygiene Instruction Depo Provera [...] IN RD RVW MEDS BY RX/DR IN [facility] Pt inelig neg scrn depres Obtaining [...] Diagnoses Date Provider Providers Copied on Encounter [facility], [address] [place] [address], [place], [place], [id number] , [place] tel:[phone] [facility] IUD insertion (chief complaint) Body mass index [BMI]40.0-44.9 , adultEncounter for insertion of intrauterine contraceptive device 5 Gera Melgoza. [address], [place], [id number], [place]. tel:[phone] PREV VISIT, EST, AGE 40-66 [facility], [address], [place], [id number] , [place] tel:[phone] [facility] annual exam (chief complaint) Encounter for gynecological examination (general) (routine) without abnormal findingsBody mass index [BMI]40.0-44.9 , adult- STD screen- STD High risk heterosexual behavior 5 [facility]. [address], [place], [id number], [place]. tel:[phone] [facility], [address] [place] [address], [id number] , [place] tel:[phone] [facility] pa (chief complaint) Body mass index [BMI]40.0-44.9 , adultEncounter for screening for dental disorders 5 Jefe Castillo. [address], [place], [id number], [place]. tel:[phone] OFFICE/OUTPA TIENT VISIT, [facility], [address], [place], [id number] , [place] tel: [phone] [facility] Encounter for Depo-Provera contraception 5 [facility]. [address], [place], [id number], [place]. tel:[phone] OFFICE/OUTPA TIENT VISIT, [facility], [address], [place], [id number] , [place] tel:[phone] [facility] Encounter for Depo-Provera contraception 5 [facility]. [address], [place], [id number], [place]. tel:[phone] OFFICE/OUTPA TIENT VISIT, [facility], [address], [place], [id number] , [place] tel: [phone] [facility] contraception (chief complaint) Depo Provera injectionBody mass index [BMI]40.0-44.9 , adult 5 [facility]. [address], [place], [id number], [place]. tel:[phone] [facility], [address] [place] [address], [id number] , [place] tel: [phone] [facility] pa (chief complaint) Body mass index [BMI]40.0-44.9 , adultEncounter for screening for dental disorders 5 Jefe Castillo. [address], [place], [id number], [place]. tel:[phone] OFFICE/OUTPA TIENT VISIT, [facility], [address], [place], [id number] , [place] tel: [phone] [facility] Depo (chief complaint) Body mass index [BMI]40.0-44.9 , adultDepo Provera injection 5 [facility] [place]. [address] [place] [address], [id number], [place]. tel:[phone] PREV VISIT, [facility], AGE 40-66 [facility], [address] [place] [address], [id number] , [place] tel: [phone] [facility] annual exam (chief complaint)cont raception (chief complaint) Encounter for gynecological examination (general) (routine) without abnormal findingsBody mass index [BMI]40.0-44.9 , adultDepo Provera injectionEncou nter for screening mammogram for Ca of breast 4 [facility]. [address] [place] [address], [id number], [place]. tel:[phone] [facility], [address] [place] [address], [id number] , [place] tel: [phone] [facility] dn (chief complaint)dn (chief complaint) Encounter for screening for dental disorders 4 Jefe Castillo. [address], [place], [address], [place]. tel:[phone] OFFICE/OUTPA TIENT VISIT, [facility], [address], [place], [address] , [place] tel: [phone] [facility] Depo (chief complaint) Depo Provera injectionBody mass index [BMI]40.0-44.9 , adult 4 [facility]. [address], [place], [id number], [place]. tel:[phone] OFFICE/OUTPA TIENT VISIT, [facility], [address], [place], [id number] , [place] tel: [phone] [facility] Depo (chief complaint) Body mass index [BMI]40.0-44.9 , adultEncounter for surveillance of injectable contraceptive 4 [facility]. [address], [place], [address], [place]. tel:[phone] OFFICE/OUTPA TIENT VISIT, [facility], [address], [place], [id number] , [place] tel: [phone] [facility] Depo (chief complaint) Depo Provera injectionBody mass index [BMI]40.0-44.9 , adult Nov- 4 [facility]. [address], [place], [id number], [place]. tel:[phone] OFFICE/OUTPA TIENT VISIT, [facility], [address], [place], [address] , [place] tel: [phone] [facility] contraception (chief complaint) Body mass index [BMI] 39.0-39.9, adultEncounter for surveillance of injectable contraceptive 4 [facility]. [address], [place], [address], [place]. tel:[phone] OFFICE/OUTPA TIENT VISIT, [facility], [address], [place], [id number] , [place] tel:[phone] [facility] annual exam (chief complaint) Encounter for gynecological examination (general) (routine) without abnormal findingsEncoun ter for surveillance of injectable contraceptiveB francisca mass index [BMI] 37.0-37.9, adult 3 [facility]. [address] [place] [address], [id number], [place]. tel:[phone] OFFICE/OUTPA TIENT VISIT, [facility], [address] [place] [address], [id number] , [place] tel:[phone] [facility] contraception (chief complaint) Encounter for screening mammogram for Ca of breastEncounte r for surveillance of injectable contraceptive 3 [facility]. [address] [place] [address], [id number], [place]. tel:[phone] OFFICE/OUTPA TIENT VISIT, [facility], [address] [place] [address], [id number] , [place] tel:[phone] [facility] contraception (chief complaint) Encounter for surveillance of injectable contraceptiveB francisca mass index [BMI] 39.0-39.9, adult 3 [facility]. [address], [place], [address], [place]. tel:[phone] OFFICE/OUTPA TIENT VISIT, [facility], [address] [place] [address], [id number] , [place] tel:[phone] [facility] contraception (chief complaint) Encounter for surveillance of injectable contraceptiveB francisca mass index [BMI]40.0-44.9 , adult Oct- 3 [facility]. [address] [place] [address], [id number], [place]. tel:[phone] OFFICE/OUTPA TIENT VISIT, [facility], [address], [place], [address] , [place] tel: [phone] [facility] contraception (chief complaint) Encounter for surveillance of injectable contraceptiveB francisca mass index [BMI]40.0-44.9 , adult Dec-0 2 [facility]. [address], [place], [id number], [place]. tel:[phone] OFFICE/OUTPA TIENT VISIT, [facility], [address], [place], [id number] , [place] tel: [phone] [facility] annual exam (chief complaint) Encounter for gynecological examination (general) (routine) without abnormal findingsBody mass index [BMI] 38.0-38.9, adultEncounter for STD screeningOther problem related to lifestyleEncou nter for surveillance of injectable contraceptiveE ncounter for screening mammogram for Ca of breast 2 [facility]. [address], [place], [id number], [place]. tel:[phone] OFFICE/OUTPA TIENT VISIT, [facility], [address], [place], [address] , [place] tel: [phone] [facility] contraception (chief complaint) Encounter for surveillance of injectable contraceptiveB francisca mass index [BMI] 37.0-37.9, adult 2 [facility]. [address], [place], [address], [place]. tel:[phone] OFFICE/OUTPA TIENT VISIT, [facility], [address], [place], [address] , [place] tel: [phone] [facility] contraception (chief complaint) Encounter for surveillance of injectable contraceptiveB francisca mass index [BMI] 39.0-39.9, adult Dec- 2 [facility]. [address], [place], [id number], [place]. tel:[phone] OFFICE/OUTPA TIENT VISIT, [facility], [address], [place], [address] , [place] tel: [phone] [facility] contraception (chief complaint) Body mass index [BMI] 39.0-39.9, adultEncounter for surveillance of injectable contraceptive 2 [facility]. [address], [place], [address], [place]. tel:[phone] [facility], [address], [place], [address] , [place] tel: [phone] [facility] No Information 1 Gera Melgoza. [address], [place], [id number], [place]. tel:[phone] OFFICE/OUTPA TIENT VISIT, [facility], [address], [place], [address] , [place] tel: [phone] [facility] contraception (chief complaint) Encounter for surveillance of injectable contraceptiveB francisca mass index [BMI]40.0-44.9 , adult 1 [facility]. [address], [place], [address], [place]. tel:[phone] OFFICE/OUTPA TIENT VISIT, [facility], [address], [place], [id number] , [place] tel: [phone] [facility] annual exam (chief complaint) Encounter for gynecological examination (general) (routine) without abnormal findingsEncoun ter for screening mammogram for cancer of breastEncounte r for surveillance of injectable contraceptiveB francisca mass index [BMI] 39.0-39.9, adult 1 [facility]. [address], [place], [address], [place]. tel:[phone] OFFICE/OUTPA TIENT VISIT, [facility], [address], [place], [id number] , [place] tel:[phone] [facility] contraception (chief complaint) Encounter for surveillance of injectable contraceptiveB francisca mass index [BMI] 39.0-39.9, adult 1 [facility]. [address], [place], [id number], [place]. tel:[phone] OFFICE/OUTPA TIENT VISIT, [facility], [address], [place], [address] , [place] tel: [phone] [facility] contraception (chief complaint) Encounter for surveillance of injectable contraceptiveB francisca mass index [BMI]40.0-44.9 , adult 1 [facility]. [address], [place], [address], [place]. tel:[phone] OFFICE/OUTPA TIENT VISIT, [facility], [address] [place] [address], [id number] , [place] tel: [phone] [facility] contraception (chief complaint) Body mass index [BMI]40.0-44.9 , adultEncounter for surveillance of injectable contraceptive 0 [facility]. [address], [place], [address], [place]. tel:[phone] OFFICE/OUTPA TIENT VISIT, [facility], [address], [place], [id number] , [place] tel: [phone] [facility] contraception (chief complaint) Body mass index (BMI) 40.0-44.9, adultEncounter for surveillance of injectable contraceptive 0 [facility]. [address] [place] [address], [id number], [place]. tel:[phone] OFFICE/OUTPA TIENT VISIT, [facility], [address] [place] [address], [id number] , [place] tel: [phone] 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 [address], [place], [id number], [place]. tel:[phone] [facility], [address], [place], [address] , [place] tel: [phone] [facility] Body mass index (BMI) 39.0-39.9, adultEncounter for surveillance of injectable contraceptive Dec-0 - 0 [facility]. [address], [place], [id number], [place]. tel:[phone] OFFICE/OUTPA TIENT VISIT, [facility], [address] [place] [address], [id number] , [place] tel: [phone] [facility] contraception (chief complaint) Encounter for surveillance of injectable contraceptiveB francisca mass index (BMI) 39.0-39.9, adult - 0 [facility]. [address], [place], [address], [place]. tel:[phone] OFFICE/OUTPA TIENT VISIT, [facility], [address] [place] [address], [id number] , [place] tel: [phone] [facility] contraception (chief complaint) Encounter for surveillance of injectable contraceptiveB francisca mass index (BMI) 37.0-37.9, adult Jul-0 -201 9 [facility]. [address], [place], [id number], [place]. tel:[phone] OFFICE/OUTPA TIENT VISIT, [facility], [address], [place], [address] , [place] tel: [phone] [facility] contraception (chief complaint) Body mass index (BMI) 36.0-36.9, adultEncounter for surveillance of injectable contraceptive [facility]. [address], [place], [id number], [place]. tel:[phone] OFFICE/OUTPA TIENT VISIT, [facility], [address], [place], [address] , [place] tel: [phone] [facility] annual exam (chief complaint) Encntr for marketing assistant exam (general) (routine) w/o abn findingsBody mass index (BMI) 35.0-35.9, adultEncounter for STD screeningEncou nter for surveillance of injectable contraceptiveO ther problem related to lifestyle [facility]. [address], [place], [id number], [place]. tel:[phone] OFFICE/OUTPA TIENT VISIT, [facility], [address], [place], [address] , [place] tel: [phone] [facility] contraception (chief complaint) Body mass index (BMI) 34.0-34.9, adultEncounter for surveillance of injectable contraceptive [facility]. [address], [place], [address], [place]. tel:[phone] OFFICE/OUTPA TIENT VISIT, [facility], [address], [place], [address] , [place] tel: [phone] [facility] contraception (chief complaint) Encounter for surveillance of injectable contraceptiveB francisca mass index (BMI) 32.0-32.9, adult 8 [facility]. [address], [place], [address], [place]. tel:[phone] OFFICE/OUTPA TIENT VISIT, [facility], [address], [place], [id number] , [place] tel: [phone] [facility] contraception (chief complaint) Encounter for surveillance of injectable contraceptiveB francisca mass index (BMI) 30.0-30.9, adult Jun-0 8 [facility]. [address], [place], [address], [place]. tel:[phone] [facility], [address], [place], [address] , [place] tel: [phone] [facility] contraception (chief complaint) Encounter for surveillance of injectable contraceptiveB francisca mass index (BMI) 30.0-30.9, adult 8 [facility]. [address], [place], [address], [place]. tel:[phone] [facility], [address], [place], [address] , [place] tel: [phone] [facility] No Information 8 Gera DO Brody. [address], [place], [id number], [place]. tel:[phone] OFFICE/OUTPA TIENT VISIT, EST [facility], [address], [place], [address] , [place] tel: [phone] [facility] contraception (chief complaint) No Information 8 [facility]. [address], [place], [address], [place]. tel:[phone] PREV VISIT, EST, AGE [age] [facility], [address], [place], [id number] , [place] tel: [phone] 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 [address], [place], [address], [place]. tel:[phone] OFFICE/OUTPA TIENT VISIT, [facility], [address], [place], [address] , [place] tel:[phone] [facility] contraception (chief complaint) Encounter for surveillance of injectable contraceptive 8 [facility]. [address], [place], [address], [place]. tel:[phone] OFFICE/OUTPA TIENT VISIT, [facility], [address], [place], [address] , [place] tel:[phone] [facility] contraception (chief complaint) Encounter for surveillance of injectable contraceptive 7 [facility] [address], [address], [place]. tel:[phone] OFFICE/OUTPA TIENT VISIT, [facility], [address], [place], [address] , [place] tel: [phone] [facility] contraception (chief complaint) Encounter for surveillance of injectable contraceptive 7 [facility]. [address], [place], [address], [place]. tel:[phone] OFFICE/OUTPA TIENT VISIT, [facility], [address], [place], [address] , [place] tel: [phone] [facility] contraception (chief complaint) Encounter for surveillance of injectable contraceptive 7 [facility] [address], [address], [place]. tel:[phone] OFFICE/OUTPA TIENT VISIT, [facility], [address], [place], [id number] , [place] tel:[phone] [facility] Cryo follow-up (chief complaint) Condyloma acuminatum 7 Sandy Kim. [address], [place], [id number], [place]. tel:[phone] OFFICE/OUTPA TIENT VISIT, [facility], [address], [place], [address] , [place] tel: [phone] [facility] cyrotherapy (chief complaint) Condyloma acuminatum Dec-0 7 Sandy Kim. [address], [place], [address], [place]. tel:[phone] PREV VISIT, EST, AGE [age] [facility], [address], [place], [id number] , [place] tel: [phone] [facility] annual exam (chief complaint) Encounter for surveillance of injectable contraceptive- well woman with abnormal findingEncount er for STD screeningOther problem related to lifestyleCondy amy acuminatum Nov- 7 [facility]. [address], [place], [address], [place]. tel:[phone] OFFICE/OUTPA TIENT VISIT, [facility], [address], [place], [address] , [place] tel: [phone] [facility] contraception (chief complaint) Encounter for surveillance of injectable contraceptive 7 [facility]. [address], [place], [address], [place]. tel:[phone] OFFICE/OUTPA TIENT VISIT, [facility], [address], [place], [address] , [place] tel: [phone] [facility] contraception (chief complaint) Encounter for surveillance of injectable contraceptive 2 6 [facility]. [address], [place], [address], [place]. tel:[phone] OFFICE/OUTPA TIENT VISIT, [facility], [address], [place], [address] , [place] tel: [phone] [facility] contraception (chief complaint) Encounter for surveillance of injectable contraceptive 8 6 [facility]. [address], [place], [address], [place]. tel:[phone] OFFICE/OUTPA TIENT VISIT, [facility], [address], [place], [address] , [place] tel: [phone] [facility] contraception (chief complaint) Encounter for surveillance of injectable contraceptive - 6 [facility]. [address], [place], [address], [place]. tel:[phone] PREV VISIT, EST, AGE [age] [facility], [address], [place], [address] , [place] tel: [phone] [facility] annual exam (chief complaint) Encounter for general marketing assistant exam without abnormal findingEncount er for STD screeningOther problem related to lifestyleEncou nter for surveillance of injectable contraceptive 6 [facility]. [address], [place], [address], [place]. tel:[phone] OFFICE/OUTPA TIENT VISIT, [facility], [address], [place], [address] , [place] tel: [phone] [facility] contraception (chief complaint) Encounter for surveillance of injectable contraceptive 5 [facility]. [address], [place], [address]47, [place]. tel:[phone] OFFICE/OUTPA TIENT VISIT, [facility], [address], [place], [address] , [place] tel: [phone] [facility] contraception (chief complaint) Other specified contraceptive management 5 [facility]. [address], [place], [address], [place]. tel:[phone] OFFICE/OUTPA TIENT VISIT, [facility], [address], [place], [address] , [place] tel:[phone] [facility] Depo/supply (chief complaint) Other specified contraceptive management 5 [facility]. [address], [place], [address], [place]. tel:[phone] OFFICE/OUTPA TIENT VISIT, [facility], [address], [place], [address] , [place] tel: [phone] [facility] No Information 5 [facility]. [address], [place], 829[address], [place]. tel:[phone] OFFICE/OUTPA TIENT VISIT, [facility], [address], [place], [address] , [place] tel: [phone] [facility] Other specified contraceptive management 5 [facility]. [address], [place], [address], [place]. tel:[phone] OFFICE/OUTPA TIENT VISIT, [facility], [address], [place], [address] , [place] tel: [phone] [facility] annual visit (chief complaint)trevon h control--Depo (chief complaint) Influenza VaccineGynecol ogical ExaminationOth er specified contraceptive management 4 [facility]. [address], [place], [address], [place]. tel:[phone] OFFICE/OUTPA TIENT VISIT, [facility], [address], [place], [address] , [place] tel: [phone] [facility] supply visit / depo (chief complaint) Other specified contraceptive management 4 [facility]. [address], [place], [address], [place]. tel:[phone] OFFICE/OUTPA TIENT VISIT, [facility], [address], [place], [address] , [place] tel: [phone] [facility] supply visit/ depo (chief complaint) Other specified contraceptive management 4 [facility]. [address], [place], [address], [place]. tel:[phone] OFFICE/OUTPA TIENT VISIT, [facility], [address], [place], [address] , [place] tel: [phone] [facility] control-Depo (chief complaint) Other specified contraceptive management 4 [facility]. [address], [place], [address], [place]. tel:[phone] OFFICE/OUTPA TIENT VISIT, [facility], [address], [place], [address] , [place] tel:[phone] [facility] supply visit / depo (chief complaint) Surveillance of other contraceptive method 4 Gera Melgoza. [address], [place], [address], [place]. tel:[phone] [facility], [address], [place], [address] , [place] tel:[phone] [facility] annual visit (chief complaint) Gynecological ExaminationGen eral counseling on initiation of other contraceptive measuresOther specified contraceptive management 3 Jairon Lopez. [address] [place], [address], [place]. tel:[phone] OFFICE/OUTPA TIENT VISIT, [facility], [address], [place], [id number] , [place] tel:[phone] [facility] depo (chief complaint) Surveillance of other contraceptive method 3 Joshua Owen. [address], [place], [id number], [place]. tel:[phone] OFFICE/OUTPA TIENT VISIT, [facility], [address], [place], [address] , [place] tel:[phone] [facility] depo (chief complaint) Surveillance of other contraceptive method 3 Lamp Lexie. [address], [place], [id number], [place]. tel:[phone] OFFICE/OUTPA TIENT VISIT, [facility], [address], [place], [address] , [place] tel: [phone] [facility] No Information 3 Joshua Owen. [address], [place], [address], [place]. tel:[phone] OFFICE/OUTPA TIENT VISIT, [facility], [address], [place], [address] , [place] tel: [phone] [facility] No Information 1-201 2 Jessica Marcum. [address], [place], [id number], [place]. OFFICE/OUTPA TIENT VISIT, [facility], [address], [place], [address] , [place] tel: [phone] [facility] No Information 0 2-201 2 Joshua Owen. [address], [place], [id number], [place]. tel:[phone] [facility], [address], [place], [address] , [place] tel: [phone] [facility] No Information 2 Joshua Owen. [address], [place], [address], [place]. tel:[phone] OFFICE/OUTPA TIENT VISIT, [facility], [address], [place], [address] , [place] tel: [phone] [facility] No Information 0-201 2 Joshua Owen. [address], [place], [address], [place]. tel:[phone] OFFICE/OUTPA TIENT VISIT, [facility], [address], [place], [address] , [place] tel: [phone] [facility] No Information 2 Joshua Owen. [address], [place], [address], [place]. tel:[phone] OFFICE/OUTPA TIENT VISIT, [facility], [address], [place], [address] , [place] tel: [phone] [facility] No Information 1 Visci DO Brody. [address], [place], [address], [place]. tel:[phone] OFFICE/OUTPA TIENT VISIT, [facility], [address], [place], [address] , [place] tel: [phone] [facility] No Information 1 Visci DO Brody. [address], [place], [address], [place]. tel:[phone] PREV VISIT, NEW, AGE 18-39 [facility], [address], [place], [address] , [place] tel: [phone] [facility] No Information 1 Joshua Owen. [address], [place], [address], [place]. tel:[phone] OFFICE/OUTPA TIENT VISIT, [facility], [address], [place], [address] , [place] tel: [phone] [facility] No Information 1 Visci DO Brody. [address], [place], [id number], [place]. tel:[phone] OFFICE/OUTPA TIENT VISIT, [facility], [address], [place], [address] , [place] tel: [phone] [facility] No Information 0 Visci DO Brody. [address], [place], [address], [place]. tel:[phone] OFFICE/OUTPA TIENT VISIT, [facility], [address], [place],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
--- OUTSIDE RECORDS SUMMARY | 2025-08-07 06:53 | XMS_ITS | Clinical Summary ---
Author Organization [facility] Address [address] [place] [address] Phone Care Team Providers Care Doughnut Icer Machine Name Role Phone Unavailable Primary Care Provider Unavailabl e Encounters DateTypeDepartmentCare HrrmVicjzwsaqeh83/03/2025Scanned Document [facility] [address] [place] [id number] Scanning, Generic Provider from Last 3 Months Social History Tobacco UseTypesPacks/DayYears UsedDateSmoking Tobacco: Never Assessed CommentsUnknownSex and Gender InformationValueDate RecordedSex Assigned at Not on fileLegal NdjLgqfqo05/25/2022 4:19 PM ESTGender IdentityNot on fileSexual OrientationNot on file Plan of Treatment Not on file Procedures Procedure NamePriorityDate/TimeAssociated DiagnosisCommentsECHOCARDIOGRAM 07/17/2025 from Last 3 Months Results * Echocardiogram (07/17/2025) Narrative 07/17/2025 Ordered by an unspecified provider. Authorizing ProviderResult TypeResult StatusGeneric Provider ScanningCV ECHO PROCEDURESFinal Result from Last 3 Months
--- OUTSIDE RECORDS SUMMARY | 2025-08-07 06:53 | XMS_ITS | Clinical Summary ---
Author Organization [facility] Address [address] [facility] [place] [address] Care Team Providers Care Pigskin Trimmer Name Role Phone Unavailable Primary Care Provider Unavailabl e Source Comments The following information is NOT included in Care Everywhere downloads:Psychiatric notes, ECG results, Cardiac Rehab notes, Pulmonary Function notes, data from SmartForms (includes but not limited toPregnancy data,audiograms, eye exams, pre-surgical evaluation notes, well-child exam data).[facility] Active Problems ProblemNoted DateDiagnosed DateCorneal edema due to wearing of contact lenses 11/18/2004 Social History Tobacco UseTypesPacks/DayYears UsedDateSmoking Tobacco: Never Assessed CommentsUnknownSex and Gender InformationValueDate RecordedSex Assigned at Not on fileLegal NnnLsnvjz69/04/2012 12:01 PM ESTGender IdentityNot on file Sexual OrientationNot on file Plan of Treatment Health MaintenanceDue DateLast ZsagHbdqfiuaMtxrrvqpkxl68/22/1978HIV Test 1992Hepatitis C Dtluotza84/22/1996Tdap Kfvjqwx2311/05/1995Hepatitis A (HAV) Vaccine (optional start 19+ years)1996Hepatitis B (HBV) Vaccine (1 of 3 - 19+ 3-dose series)1996Tetanus (Td or Tdap) Rfbbuox7311/05/1996Pap Smear 11/05/19982462Dtkcnnhlnqb23/22/2018CRC Peskyisnw69/22/9065Nejaifjpaex09/22/2023 Cologuard (Stool DNA)2022FIT2022OVID-19 Vaccine ( - 2024- season)2025Influenza Vaccine (#1)2025Shingles (RZV) Vaccine (1 of 2) 2027Pneumococcal Vaccine(s)Aged OutNo longer eligible based on patient's age to complete this topic Insurance
--- OUTSIDE RECORDS SUMMARY | 2025-08-07 06:53 | XMS_ITS | Patient Health Record ---
Author Organization [facility] in [place] Address [address] [place] [address] Care Team Providers Care Diving Fisher Name Role Phone Eric Camacho Primary Care Provider [phone] Allergies No Known Allergies Results Component Value Reference Range Notes FREE T3 Reviewed date:02/02/2025 08:06:47 PM Interpretation: Performing Lab: Notes/Report: [facility] , Free T3 3.02 2.18-3.98 pg/mL Performing Lab:see noteML - [facility] LBIRON Reviewed date:02/02/2025 08:06:47 PM Interpretation: Performing Lab: Notes/Report: [facility] ,Iron43.050.0-170.0 ug/dLPerforming Lab:see noteML - [facility] LB PROF 14(COMP METB) Reviewed date:02/02/2025 08:06:47 PM Interpretation: Performing Lab: Notes/Report: [facility] ,Mbdkvh318611-776 mmol/LPotassium4.53.5-5.1 mmol/JEwojdtmu13025-659 mmol/LCarbon Jqmrqeb13.321.0-32.0 mmol/LAnion Gap16.1Zjfftkc86452-387 mg/dLBlood Urea Jsboezpu38.07.0-18.0 mg/dLCreatinine1.360.55-1.02 mg/dLEstimated GFR ( Zraybka10>=60 mL/min/1.73m 2Estimated GFR (Non- Ame42>=60 mL/min/1.73m 2 BUN Creatinine Ratio13.4Zvrdcmy0.98.5-10.1 mg/dLBilirubin Total0.30.2-1.0 mg/dL Aspartate Amino Tbduhiuxyeo9774-05 U/LAlanine Fsiewjzhbrtgwdqj7629-44 U/L Alkaline Hvvaiferfch1134-068 U/LTotal Protein6.86.4-8.2 g/dLAlbumin Level3.83.4- 5.0 g/dLGlobulin3.0Albumin Globulin Ratio1.3Performing Lab:see noteML - [facility] LBT4 Reviewed date:02/02/2025 08:06:47 PM Interpretation: Performing Lab: Notes/Report: [facility] ,T4 Thyroxine9.204.80-13.90 ug/dLPerforming Lab:see note - [facility] LBTSH Reviewed date:02/02/2025 08:06:48 PM Interpretation: Performing Lab: Notes/Report: [facility] ,Thyroid Stimulating Hormone2.6190.358-3.740 uIU/mLPerforming Lab:see note - [facility] LBXR thoracic spine 2V Reviewed date:05/17/2025 06:08:33 PM Interpretation: Performing Lab: Notes/Report: Source Facility: [place] [address] XRay Report Signed Patient: DEON PICHARDO MR#: [id number] : 1975 Acct:[id number] Age/Sex: 49 / F ADM Date: 05/17/25 Loc: RAD Attending Dr: Chantal Starr ASSISTANT PROFESSOR OF PHILOSOPHY Ordering Physician: Chantal Starr NP Date of Service: 05/17/25 Procedure(s): XR thoracic spine 2V Accession Number(s): [id number] cc: Chantal Starr NP; Jesus Camacho M.D. [place] [id number] Patient Name: DEON PICHARDO MRN: [id number] date: 1975 Sex: F Assigned Patient Location: RAD Current Patient Location: RAD Accession/Order Number: [id number] Exam Date: 05/17/2025 14:05 Report Date: 05/17/2025 [...] Jr., D.O. 05/17/2025 3:07 PM Dictation Location: [place] [address] Electronically authenticated by: [id number] Y Date: 05/17/2025 15:07 Dictated By: Rainer Martinez M.D. Signed By: 05/17/25 1510 DD/ 1507 TD/TT: Coronary Clinical Specialist:VITAMIN D 25 [place] Reviewed date:02/02/2025 08:06:48 PM Interpretation: Performing Lab: Notes/Report: [facility] ,Vitamin D32.7 >100 ng/mL Potential Toxicity 30-100 ng/mL Vit D sufficient <20 ng/mL Vit D deficient 20-<30 ng/mL Vit D insufficient Performing Lab:see noteML - [facility] LBCBC AUTO DIFF Reviewed date:02/02/2025 08:06:47 PM Interpretation: Performing Lab: Notes/Report: [facility] ,White Blood Count8.34.0-11.0 10 3/uLRed Blood Count4.294.20-5.40 10 6/uL Jowfaxvjnr52.912.0-16.0 g/vSXsvmrmtmqm18.636.0-48.0 %Mean Corpuscular Fmmtvg49.3 81.0-99.0 fLMean Corpuscular Adsrtdjmid72.126.7-34.0 pgMean Corpuscular HGB Conc 32.629.9-35.2 g/dLRed Cell Distribution Width13.011.0-15.0 %Platelet Gwcvl098 150-450 10 3/uLMean Platelet Xirpmr67.09.5-13.5 fLNeutrophils Percent Auto55.7 43.0-75.0 %Lymphocytes Percent Auto32.220.5-60.0 %Monocytes Percent Auto9.71.7- 12.0 %Eosinophils Percent Auto1.30.9-7.0 %Basophils Percent Auto0.70.2-2.0 % Immature Granulocytes Pct Auto0.40.0-0.5 %Neutrophils Absolute Auto4.61.4-6.5 10 3/uLLymphocytes Absolute Auto2.71.2-3.8 10 3/uLMonocytes Absolute Auto0.80.3-0.8 10 3/uLEosinophils Absolute Auto0.10.0-0.7 10 3/uLBasophils Absolute Auto0.10.0- 0.1 10 3/uLImmature Granulocytes Abs Auto0.030.00-0.03 10 3/uLPerforming Lab:see noteML - [facility] LBMammogram Reviewed date:09/16/2024 02:53:56 PM Interpretation:undefined Performing Lab: Notes/Report: undefinedCOVID-19, Flu A+B IH Reviewed date:02/02/2025 08:06:48 PM Interpretation: Performing Lab: Notes/Report: COVIDPOSITIVEFLU AnegFLU BnegControlpresentPROF CHEM 8 (BAS METB) Reviewed date:02/08/2025 07:39:28 PM Interpretation: Performing Lab: Notes/Report: [facility] ,Rhbice259165-711 mmol/LPotassium4.33.5-5.1 mmol/VYpkdxmsk67716-075 mmol/LCarbon Qmiqfwn32.921.0-32.0 mmol/LAnion Gap13.0Uovklib1184-770 mg/dLBlood Urea Nitrogen 17.07.0-18.0 mg/dLCreatinine0.850.55-1.02 mg/dLEstimated GFR ( Vera>60 >=60 mL/min/1.73m 2Estimated GFR (Non- Kylah>60>=60 mL/min/1.73m 2BUN Creatinine Ratio20.9Tymzdet6.28.5-10.1 mg/dLPerforming Lab:see noteML - [facility] LB Reason For Referral No Information Medications [...] Administration Date Status Comme nts Flu, Flucelvax (6305-9620) (45110) 6 mos +, single-dose syringe IM Intramuscular [...] alcohol in the p ast year? No Zrstrd5OxqnddldqpupjwPjvhxyveCCUXI-K (Standard) Question Answer Notes Did you have a drink containing alcohol in the p ast year? No Vqmvhw1RarfhxjgnkkqjoLxhezwvv Problems Problem Type SNOMED Code ICD Code Onset Dates Problem Status W/U Status Risk Notes Problem Iron deficiency anemia (38720745 ) Iron deficiency anemia, unspecified (D50.9) ActiveconfirmedProblemHypothyroidism (86560827)Hypothyroidism, unspecified (E03.9)ActiveconfirmedProblemChronic obstructive pulmonary disease (66909754) Chronic obstructive pulmonary disease, unspecified (J44.9)ActiveconfirmedProblem Benign neoplasm of meninges (738427279)Benign neoplasm of meninges, unspecified (D32.9)ActiveconfirmedProblemNon-toxic single thyroid nodule (875670564)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)ActiveconfirmedProblemBrachial plexus disorder (8034752)Brachial plexus disorders (G54.0)ActiveconfirmedProblemDegeneration of cervical intervertebral disc (68811868)Other cervical disc degeneration, unspecified cervical region (M50.30)ActiveconfirmedProblemDegeneration of lumbar intervertebral disc (80051432)Other intervertebral disc degeneration, lumbar region (M51.36)ActiveconfirmedProblemFibromyalgia (510848730)Fibromyalgia (M79.7)ActiveconfirmedProblemRight upper quadrant pain (953926287)Right upper quadrant pain (R10.11)ActiveconfirmedProblemNausea (258213104)Nausea (R11.0) ActiveconfirmedProblemVomiting (497607857)Vomiting, unspecified (R11.10)Active confirmedProblemFatigue (64389793)Fatigue (R53.83)ActiveconfirmedProblem Hypertension (46203665)Hypertension (I10)ActiveconfirmedProblemCOPD - Chronic obstructive pulmonary disease (99490054)COPD (chronic obstructive pulmonary disease) (J44.9)ActiveconfirmedProblemGastroesophageal reflux disease (310800255)GERD (gastroesophageal reflux disease) (K21.9)ActiveconfirmedProblem Obstructive sleep apnea syndrome (84328003)MAREK (obstructive sleep apnea) (G47.33)ActiveconfirmedProblemEczema (84610421)Eczema (L30.9)Activeconfirmed ProblemEpigastric pain (58924448)Epigastric abdominal pain (R10.13)Active confirmedProblemVitamin D deficiency (92703169)Vitamin D deficiency (E55.9) ActiveconfirmedProblemDisorder of lumbar disc (050609378)Lumbar disc disease (M51.9)ActiveconfirmedProblemConstipation (96848393)Constipation (K59.00)Active confirmedProblemWell adult (118242501)Well adult (Z00.00)ActiveconfirmedProblem Solitary nodule of lung (256614323)Lung nodule (R91.1)ActiveconfirmedProblem Paresthesia (85911726)Paresthesia (R20.2)ActiveconfirmedProblemBenign neoplasm of cerebral meninges (57016131)Meningioma (D32.9)ActiveconfirmedProblemChest wall pain (627651158)Chest wall pain (R07.89)ActiveconfirmedProblemFibromyalgia (162115364)Fibromyalgia (M79.7)ActiveconfirmedProblemTension headache (230286531)Tension headache (G44.209)ActiveconfirmedProblemBursitis of left shoulder (653878575628418)Bursitis of shoulder, left (M75.52)Activeconfirmed ProblemExcessive sweating (12168076)Excessive sweating (R61)Activeconfirmed ProblemChronic obstructive pulmonary disease (64411832)Advanced COPD (J44.9) ActiveconfirmedProblemMixed anxiety and depressive disorder (522622825)Anxiety and depression (F41.9)ActiveconfirmedProblemAnkle edema (24467872)Ankle edema (M25.473)ActiveconfirmedProblemAbnormal PFTs (R94.2)ActiveconfirmedProblem Irritable bowel syndrome (94294432)Irritable bowel syndrome (IBS) (K58.9)Active confirmedProblemType II diabetes mellitus without complication (432659314) Controlled type 2 diabetes mellitus (E11.9)ActiveconfirmedProblemObese class III (finding) (723991518)Obesity, class 3 (E66.813)Activeconfirmed Vital Signs Heart Rate 83 /min 03/20/2025 Idjfcmfhswb99.5 degrees Zfwzchxfps03/23/5287Dmghfrgb06 %03/20/2025lood pressure yfkrgxqsc17 mm Hg06/07/20258140Mgnmln48.5 in06/07/2025lood pressure yptyunzw210 mm Hg06/07/20254306Bwigpb920.0 lbs06/07/2025BMI40.96 kg/m206/07/2025 Procedures Procedure Date Ordered Date Performed Result Body Sit e CARDIO Echocardiogram 05/25/2025 N/A Encounters Encounter Location Date Provider Diagnosis [facility] [address] [place] [address] 08/18/2024 Eric Camacho [facility] [place] [address] 09/01/2024[facility] [place] [address]/23/2024[facility] [place] [address]/02/2025[facility] [place] [address]/11/2024[facility] [place] [address]/Doug HoyIron deficiency anemia, unspecified D50.9[facility] [place] [address]/10/2024[facility] [address] [place] [address]/Doug HoyAbnormal renal function N28.9[facility] [place] [address]/[facility] [place] [address]/[facility] [place] [address]/11/2024[facility] [place] [address]/01/2025[facility] [place] [address]/01/2025 [facility] [place] [address]/03/2025[facility] [place] [address]/04/2025[facility] [place] [address]/[facility] [place] [address]/Doug HoyIron deficiency anemia, unspecified D50.9[facility] [place] [address]/[facility] [place] [address]/06/2025[facility] [place] [address]/ [facility]BV[facility] [place] [place] [address] 07/04/2025[facility] [place] [address]/03/2025[facility] [place] [address]/Doug HoyChest wall pain R07.89[facility] [place] [address]/oug Hoy COPD (chronic obstructive pulmonary disease) J44.9[facility] [place] [address]/oug HoyAcute bronchitis, unspecified organism J20.9[facility] [place] [address]/03/2025Doug HoyChronic obstructive pulmonary disease, unspecified J44.9BKendra [place] [address] [place] [address]/07/2025Doug HoyWell adult Z00.00 ; Vitamin D deficiency E55.9 ; Nontoxic single thyroid nodule E04.1 and Murmur R01.1[facility] [place] [address]/ Eric HoyBenign neoplasm of meninges, unspecified D32.9 ; Obesity, class 3 E66.813 ; Chronic obstructive pulmonary disease, unspecified J44.9 ; Advanced COPD J44.9 and COPD (chronic obstructive pulmonary disease) J44.9[facility] [place] [address]Doug Hoy Hypotension I95.9 Assessments Encounter Date Diagnosis (ICD Code) Assessment Notes Treatment Notes Treatment Clinical Notes Section Notes 08/10/2024 COPD (chronic obstructive pulmon kt disease) (ICD-10 - J44.9) 4Acute bronchitis, unspecified organism (ICD-10 - J20.9)Rest and drink more liquids, especially water. You may use a humidifier or vaporizer to help keep the drainage moist. Rvbe-fkr-yiimxes Nasal Saline may help the stuffy and runny nose. Use Ibuprofen and or Tylenol as needed for fever, chills, body aches or pain. Children 5 years old should not be given ufhn-wxz-ctiubhl cough and cold medications such as guaifenesin and dextromethorphan. If you're over age 5, you may try vprt-vmt-xciknei cold medications such as guaifenesin and dextromethorphan, [...] go to the emergency room or call [phone] neoplasm of meninges, unspecified (ICD-10 - D32.9)02/02/2025Obesity, [...] IN OFFICE 02/12/2023 CMP (COMPLETE METABOLIC PANEL) 3 CMP (COMPLETE METABOLIC PANEL) 4 HEMOGLOBIN A1C (GLYCO) 05/15/2023 HEMOGLOBIN A1C (GLYCO) [...] DIFF 04/10/2023 FERRITIN 04/10/2023 FERRITIN 05/20/2023 FERRITIN 12/12/2024 FERRITIN 11/09/2023 FERRITIN 05/28/2025 IRON 05/28/2025 IRON 11/09/2023 IRON 12/12/2024 IRON 05/20/2023 IRON 04/10/2023 MAGNESIUM 05/25/2025 PHOSPHORUS 05/25/2025 VIT B12 AND FOLATE 05/25/2025 VIT B12 AND FOLATE 04/14/2024 VITAMIN D 25 [place] 05/25/2025 CT CHEST WO CON 06/07/2025 MRI CSPINE WO CON 01/15/2024 MRI LSPINE WO CON 01/15/2024 US ABD 02/16/2023 US THYROID 05/25/2025 US THYROID 02/09/2024 XR DEXA BONE DENSITY 05/25/2025 THYROID PANEL (T4/TSH/FREE T3) 3 THYROID PANEL (T4/TSH/FREE T3) 5 THYROID PANEL (T4/TSH/FREE T3) 5 THYROID PANEL (T4/TSH/FREE T3) 4 THYROID PANEL (T4/TSH/FREE T3) 4 MM screening mammo BI 05/25/2025 CMP (COMP MET PICKETT) w/eGFR CKD-EPI 2024 CMP (COMP MET PICKETT) w/eGFR CKD-EPI 2024 CBC WITH DIFF 02/02/2025 CBC WITH DIFF 05/25/2025 Insurance Providers Payer Name Payer Address Payer Phone Subscriber Number Group Number Insured Name Patient Relationship to Insured Coverage Start Date Coverage End Date [employer]V PRIMARY MEDICARE [address] [place] [address] [id number] Malick Pichardoelf - patient is the [facility] [address] [address] OFF[place] OF [place], [place] [id number], MandieSelf - patient is the insuredMEDICARE [facility] [address] [address] [place] [id number], MandieSelf - patient is the insured 2009 Medications Administered Medication Instructions Date of Administration Dosage Notes Dexamethasone, 4mg/mL mgDexamethasone, 4mg/mL mgKenalog-400 mg80 Ketorolac Qwdpbjqaijvy27/03/007827 rg25Virvzduvm Lajsrnmncrtw53/24/292251 mg Orphenadrine Wwgsfxo24 re37Iughytyugtfe Xuqonje050 mg Promethazine, 25 mg5 mg25 Medical (General) History Medical History History ICD Code Tension headache G44.209 Abnormal PFTs R94.2 Ankle edema M25.473 Fibromyalgia M79.7 Epigastric abdominal pain R10.13 MAREK (obstructive sleep apnea) G47.33 Lung nodule R91.1 rectal bleeding Excessive vlpljjicF25QwdayriY23Kcebtdzgro type 2 diabetes rcpcktyvP94.9Lumbar disc otozpcaN89.9Acid btliftI82.9Brachial plexus kpqdptkfrJ52.0Chronic obstructive pulmonary disease, ececxygrojiM59.9ZnxwovjzfnamV94Zjxwggtuk bowel syndrome (IBS)K58.1GkqgphG78.4JbxgsmfuywwI45.2Anxiety and dxmmwcpwdkA18.9 Surgical History Surgery Date(Month/Year) Left C4-5, 5-6 radiofrequency ablation 1 09/23/24 C5-C6 transforaminal epidural steroid in jection 04/24/2025 craniotomy 02/20/25 Left C4-5, 5-6 radiofrequency ablation 1 09/17/2023 Repair of bones in left arm d/t fracture Right rib removalRt Radius core Decompression with Dr. GomesCarpal Tunnel x2 on right, x1 leftCubital Tunnel, dwaev6150Crmwaajibwki
--- OUTSIDE RECORDS SUMMARY | 2025-08-07 06:53 | XMS_ITS | Encounter Summary ---
Author Organization [facility] Address [address] [place] [address] Care Team Providers Care Track Repair Laborer Name Role Phone Jesus Camacho MD Primary Care Provider [phone] Encounter Details DateTypeDepartmentCare Team (Latest Contact Info)Jbiiunctolj94/21/2025Travel Social History Tobacco UseTypesPacks/DayYears UsedDateSmoking Tobacco: FormerCigarettes Comments:>10 years since las t smoked Alcohol UseStandard Drinks/WeekCommentsYes0 (1 standard drink = 0.6 oz pure alcohol)caffeine: stackersCommentsUnknownSex and Gender InformationValue Date RecordedSex Assigned at BirthNot on fileLegal DdsDfxjlu21/15/2023 8:26 PM EDTGender IdentityNot on fileSexual OrientationNot on filedocumented as of this encounter Plan of Treatment DateTypeDepartmentCare Team (Latest Contact Info)Ujayglekrrt51/24/2025 2:40 PM ESTOffice Visit [facility] [address] [phone] Ash Greene MD [address] [phone] documented as of this encounter Visit Diagnoses Not on filedocumented in this encounter Care Teams Team MemberRelationshipSpecialtyStart DateEnd Date Jesus Camacho MD [address] [place] [address] PCP - GeneralFamily Medicine03/12/23documented as of this encounter
--- OUTSIDE RECORDS SUMMARY | 2025-08-07 06:53 | XMS_ITS | Clinical Summary ---
Author Organization [facility] Address [address] [place] [address] Care Team Providers Care Pastry Cook Name Role Phone Jesus Camacho MD Primary Care Provider [phone] Allergies No known active allergies Medications MedicationSigDispense QuantityRefillsLast FilledStart DateEnd DateStatus Brexpiprazole (Rexulti) 2 MG tablet TAKE 1 TABLET BY MOUTH ONCE DAILY Oral for 30Active cafdqqoebt-ptwrqxaytnpwo-dfmzgigj 50-325-40 MG tablet TAKE 1 TABLET BY [...] solution INHALE ONE VIAL ONCE DAILY PER MGOYWLIBX80/01/2023ctive diclofenac (Voltaren) 75 MG EC tablet Take [...] USING NEBULIZER 4 TIMES A DAY03/10/2023ctive Drug [place] Unilet Lancets 33G misc USE ONCE DAILY03/10/2023ctive lisinopril 10 MG tablet Take 10 mg by mouth in the morning.03/09/2023ctive ondansetron (Zofran) 4 MG tablet TAKE 1 TABLET BY MOUTH EVERY 6 HOURS NEEDED FOR NAUSEA AND OZNCUVUZ00/03/2023 Active pregabalin (Lyrica) 50 MG capsule Take 50 mg by mouth in the morning and 50 mg before bedtime.06/19/2022ctive promethazine (Phenergan) 25 MG tablet Take 25 mg by mouth every 8 (eight) hours if needed.02/17/2023ctive tiZANidine (Zanaflex) 4 MG tablet TAKE 2 TABLETS BY MOUTH DAILY AT VZJZQMY0004/11/2022ctive doxepin (SINEquan) 10 MG capsule Take 10 [...] by mouth every 12 (twelve) hours if xfzays8705/26/2024ctive Myrbetriq 25 MG 24 hr tablet TAKE [...] on right side03/25/2023loating 3DM type 2 without zrxgwudyqvs65/11/5160Dqgonqjkelxh25/11/2023Myopia of both eyes03/24/2023Nuclear senile oktmsdlq20/11/2023Open angle with borderline findings, low risk, tnxarqelo23/11/2023Otitis mdozpny6703/24/2023resbyopia 03/24/2023 Encounters DateTypeDepartmentCare EcfkWtrxbcpiiwl87/21/6458Rroewn66/27/2025 2:20 PM EDT Office Visit [facility] [address] [place] [phone] Ash Greene MD Recurrent sinus infections (Primary Dx); Obstructive sleep apnea07/10/2025Orders Only [facility] External Department Unsolicited Ash Greene MD 07/10/2025amboo flowsheet [facility] [address] [place] [phone] Ash Greene MD 07/10/20259257Ehxaup99/21/4063Cjzvic01/23/2025Telephone [facility] [address] [place] [facility] [phone] Lamar Rose NP 06/05/2025 6:15 PM EDTAncillary Procedure [facility] [address] [place] [phone] Rib pain on right side06/05/2025 5:40 PM EDTOffice Visit [facility] [address] [place] [phone] Lamar Rose NP Rib pain on right side (Primary Dx); Sprain of costal cartilage, initial opplxbozl44/22/0269Tjumhq51/09/2025 1:20 PM EDTOffice Visit [facility] [address] [place] [phone] Sharon Wilburn NP Ddlfvserztbf65/09/2025Travelfrom Last 3 Months Immunizations ImmunizationAdministration DatesNext DueHep A, Adult02/02/2019Influenza, Dzremftjqmx33/10/2017Influenza, injectable, MDCK, preservative free, hfzjggzdmpbu2022,07/04/2020Influenza, injectable, quadrivalent, preservative free07/12/2021,08/30/2014Td (adult), 5 Lf tetanus toxoid, preservative free, eyixjgws30/20/2021 Family History Medical HistoryRelationNameCommentsliver failureFatherRelationNameStatusComments BrotherAliveFatherDeceasedMotherAlive Social History Tobacco UseTypesPacks/DayYears UsedDateSmoking Tobacco: FormerCigarettes Tobacco Cessation:Counseling Given: Not Answered Comments:>10 years since last smoked Alcohol UseStandard Drinks/WeekCommentsYes0 (1 standard drink = 0.6 oz pure alcohol)caffeine: stackersCommentsUnknownSex and Gender InformationValue Date RecordedSex Assigned at BirthNot on fileLegal GufNlumio44/15/2023 8:26 PM EDTGender IdentityNot on fileSexual OrientationNot on file Last Filed Vital Signs Vital SignReadingTime TakenCommentsBlood Ygyzorbd979/90006/05/2025 5:46 PM EDT Tbfcl173306/05/2025 5:46 PM FPVKjlcasuquza85.1 ??C (98.7 ??F)06/05/2025 5:46 PM EDTRespiratory Klgd797606/05/2025 5:46 PM EDTOxygen Fwgoklxmde98%06/05/2025 5:46 PM EDTInhaled Oxygen Concentration--Kibfho907 kg (245 lb)07/10/2025 2:11 PM EDT Qjebzr165.1 cm (5' 5 )03/25/2023 10:35 AM EDTBody Mass Index40.77003/25/2023 10:35 AM EDT Plan of Treatment DateTypeDepartmentCare Team (Latest Contact Info)Bvsykrmptrn42/24/2025 2:40 PM ESTOffice Visit [facility] [address] [place] [address] Ash Greene MD [address] [facility] [address] [place] [address] Health MaintenanceDue DateLast DoneCommentsCT Spxelcvfauok09/22/1978Colonoscopy 1977Colorectal Cancer Nsyuaahpv75/22/1978FIT-DNA1977FIT1977 FOBT1977 1434Ngdxpesyfzfby14/22/1978Pap Smear1998Cervical Cancer Qgiczwpzw94/22/2008HPV/Byhqme0111/05/20070066Purdsysmv45/22/2018COVID-19 Vaccine ( season)/, 01/02/2021Influenza Vaccine (#1)2025 06/18/2022, 07/12/2021, 07/04/2020, Additional history existsPneumococcal Vaccine: Pediatrics (0 to 5 Years) and At-Risk Patients (6 to 64 Years)Aged Out No longer eligible based on patient's age to complete this topic Procedures Procedure NamePriorityDate/TimeAssociated DiagnosisCommentsIMMUNOGLOBULIN E Xopnhde6607/10/2025 3:43 PM EDT DIPHTHERIA / TETANUS ANTIBODY YKPMIRugriyz98/27/2025 3:43 PM EDT PNEUMOCOCCAL AB (23 SEROTYPE)Sdapjuq8307/10/2025 3:43 PM EDT IMMUNOGLOBULIN HXfloctw10/27/2025 3:43 PM EDT IMMUNOGLOBULIN XMbzooyj98/27/2025 3:43 PM EDT IMMUNOGLOBULIN LAgcgctc34/27/2025 3:43 PM EDT HYPERCOAG PANEL NSFUPEPoolozu23/27/2025 3:43 PM EDT CBC (INCLUDES DIFF/PLT)Djylsqn7007/10/2025 3:43 PM EDT XR RIBS 2 VIEWS RIGHT WITH CHEST TGCQJLEVQNPUIFODSQG92/22/2025 6:23 PM EDT Rib pain on right [...] developed and its performance characteristics determined by [employer]. It has not been cleared or approved by the U.S. Food and Drug Administration. FLAG Interpretation: A = Abnormal, H = High, L = Low Specimen (Source)Anatomical Location / LateralityCollection Method / Volume Collection TimeReceived Time07/10/2025 3:43 PM EDT1 Narrative [facility] - 07/13/2025 8:35 AM EDT Performed at: - [facility] [address], [facility] [address], [place], [place] ??[id number] Claims Director: DENICE Voss, Phone: ??[phone] Authorizing ProviderResult TypeResult StatusTodd E Rambasek NHLAB BLOOD ORDERABLESFinal ResultPerforming OrganizationAddressCity/State/[facility] CodePhone Number [facility] * (ABNORMAL) Diphtheria / Tetanus Antibody Panel (07/10/2025 3:43 PM EDT) ComponentValueRef RangeTest MethodAnalysis TimePerformed AtPathologist SignatureTETANUS ANTITOXOID IGG AB1.19<0.10 IU/mLLABCORPComment: ? Interpretation: Non-Protective <0.10 Protective >=0.10 Results for this test are for research purposes only by the assay's marine transport professionals. ??The performance characteristics of this product have [...] AM EDT Performed at: 02 - [address] ??[id number] Claims Director: Lila Cadena MD, Phone: ??[phone] Authorizing ProviderResult TypeResult StatusTodd E Rambasek MDLAB [...] 8:35 AM EDT Performed at: 01 - [address] ??[id number] Claims Director: Maxim Daniel PhD, Phone: ??[phone] Authorizing ProviderResult TypeResult StatusTodd E Rambasek NHLAB BLOOD ORDERABLESFinal ResultPerforming OrganizationAddressCity/State/ZIP CodePhone Number [facility] * (ABNORMAL) CBC and differential (07/10/2025 3:43 PM EDT)ComponentValueRef RangeTest MethodAnalysis TimePerformed AtPathologist SignatureWBC9.73.4 - 10.8 x10E3/uLLABCORPRBC4.443.77 - 5.28 x10E6/gPWGJZFHBEcu77.711.1 - 15.9 g/dL BZEEHJFGgv92.734.0 - 46.6 %PWDBBIVVVT5968 - 97 nJESKSMWOQAH54.626.6 - 33.0 pg NVATSJOPBNK33.831.5 - 35.7 g/fERIRDKHAVQK94.311.7 - 15.4 %UUYLFCGOdbioujkt421 (H)150 - 450 x10E3/aHYTMIPGGAssssxeoiqj80Yzb Estab. %UCHATYUBqqdlf89Xna Estab. %LYXTQXQKxgmbbrwf2Jqm Estab. %ZDIPNFNRqd5Oro Estab. %HLHBORYYfilk0Ywx Estab. % [facility]PNeutrophils Abs7.2(H)1.4 - 7.0 x10E3/uLLABCORPLymphs Abs1.80.7 - 3.1 x10E3/uLLABCORPMonocytesAbs0.60.1 - 0.9 x10E3/uLLABCORPEos Abs0.00.0 - 0.4 x10E3/uLLABCORPBaso Abs0.10.0 - 0.2 x10E3/uLLABCORPImmature Ielnwmeelkjx2Ogo Estab. %[facility]ABCORPImmature Grans Abs0.10.0 - 0.1 x10E3/uLLABCORPSpecimen (Source) Anatomical Location / LateralityCollection Method / VolumeCollection Time Received Time07/10/2025 3:43 PM EDT1 Narrative [facility] - 07/11/2025 8:35 AM EDT Performed at: - [address] ??[id number] Claims Director: Maxim Daniel PhD, Phone: ??[phone] Authorizing ProviderResult TypeResult StatusTodd E Ramseverinok NHLAB BLOOD ORDERABLESFinal ResultPerforming OrganizationAddressCity/State/ZIP CodePhone Number [facility] * IgE (07/10/2025 3:43 PM EDT)ComponentValueRef RangeTest MethodAnalysis Time Performed AtPathologist SignatureIMMUNOGLOBULIN E, QLIRU295 - 495 IU/mLL[facility] Specimen (Source)Anatomical Location / LateralityCollection Method / Volume Collection TimeReceived Time07/10/2025 3:43 PM EDT1 Narrative [facility] - 07/13/2025 8:35 AM EDT Performed at: - [address] ??[id number] Claims Director: Lila Cadena MD, Phone: ??[phone] Authorizing ProviderResult TypeResult StatusTodd E Anjumk MDCHEYENNE COUNTY [facility] BLOOD ORDERABLESFinal ResultPerforming OrganizationAddressCity/State/ZIP CodePhone Number [facility] * IgA (07/10/2025 3:43 PM EDT)ComponentValueRef RangeTest MethodAnalysis Time Performed AtPathologist SignatureIMMUNOGLOBULIN A, QN, [id number] - 352 mg/dL [facility]pecimen (Source)Anatomical Location / LateralityCollection Method / VolumeCollection TimeReceived Time07/10/2025 3:43 PM EDT1 Narrative [facility] - 07/11/2025 8:35 AM EDT Performed at: [address] ??[id number] Claims Director: Maxim Daniel PhD, Phone: ??[phone] Authorizing ProviderResult TypeResult StatusTodd E Rambasek MDLAB BLOOD ORDERABLESFinal ResultPerforming OrganizationAddressCity/State/ZIP CodePhone Number [facility] * IgM (07/10/2025 3:43 PM EDT)ComponentValueRef RangeTest MethodAnalysis Time Performed AtPathologist SignatureIMMUNOGLOBULIN M, QN, [id number] - 217 mg/dL [facility]pecimen (Source)Anatomical Location / LateralityCollection Method / VolumeCollection TimeReceived Time07/10/2025 3:43 PM EDT1 Narrative [facility] - 07/11/2025 8:35 AM EDT Performed at: - [address] ??[id number] Claims Director: Maxim Daniel PhD, Phone: ??[phone] Authorizing ProviderResult TypeResult StatusTodd E Rambasek MDLAB BLOOD ORDERABLESFinal ResultPerforming OrganizationAddressCity/State/ZIP CodePhone Number [facility] * IgG (07/10/2025 3:43 PM EDT)ComponentValueRef RangeTest MethodAnalysis Time Performed AtPathologist SignatureIMMUNOGLOBULIN G, QN, [id number] - 1,602 mg/dLLABCORPSpecimen (Source)Anatomical Location / LateralityCollection Method / VolumeCollection TimeReceived Time07/10/2025 3:43 PM EDT1 Narrative [facility] - 07/11/2025 8:35 AM EDT Performed at: [address] ??[id number] Claims Director: Maxim Daniel PhD, Phone: ??[phone] Authorizing ProviderResult TypeResult StatusTodd E Rambasek MDLAB [...] BY: Sylvester Triplett MD Authorizing ProviderResult TypeResult StatusLinds N Lansing NPIMG XR PROCEDURES Final Result from Last 3 Months Insurance Care Teams Team MemberRelationshipSpecialtyStart Date Jesus Camacho MD [address] [place] [address] PCP - GeneralFamily Medicine03/12/23
--- OUTSIDE RECORDS SUMMARY | 2025-08-07 06:54 | XMS_ITS | Patient Health Record ---
Author Organization [facility] Address [address] [place] [address] Care Team Providers Care Column Precaster Name Role Phone Jesus Camacho Primary Care Provider [facility] Etienne Urbina Unavailable [phone] Reason For Referral No Information Problems Problem Type SNOMED Code ICD Code Onset Dates Problem Status W/U Status Risk Notes Problem Cervical radiculopathy (86947001 ) Radiculopathy, cervical region (M54.12) ActiveconfirmedProblemSpinal stenosis in cervical region (38475986)Spinal stenosis, cervical region (M48.02)ActiveconfirmedProblemSpinal stenosis of lumbar region (44849370)Spinal stenosis, lumbosacral region (M48.07)Active confirmedProblemDisplacement of lumbar intervertebral disc without myelopathy (57306974)Other intervertebral disc displacement, 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) ActiveconfirmedProblemDegeneration of lumbosacral intervertebral disc (14285631) Other intervertebral disc degeneration, lumbosacral region (M51.37)Active confirmedProblemDisplacement of cervical intervertebral disc without myelopathy (02597779)Other cervical disc displacement at C5-C6 level (M50.222)Active confirmedProblemDisplacement of cervical intervertebral disc without myelopathy (55557645)Other cervical disc displacement at C6-C7 level (M50.223)Active confirmed Plan Of Treatment Pending Test Test Name Order Date Lumbar spine, 4v flex ext - 55586 2023 Cervical spine,ap,lat,flex,ext - 85748 0 02/19/2024 SFS - Lumbar Spine PT [...] Date Coverage End [place] [address] [place] [address] [id number] Juanita PICHARDO - patient is the insuredOhio Dept of MedicaidP [address] [place] [id number], MANDIESelf - patient is the [id number] 2024
--- OUTSIDE RECORDS SUMMARY | 2025-08-07 06:54 | XMS_ITS | CCD ---
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 Name Role Phone PHYSICIAN, DEFAULT Unavailable Unavailable PHYSICIAN, DEFAULT Unavailable Unavailable Jesus Gonzalez MD Unavailable Beti Bowles Unavailable Elyssa Gomes Unavailable MD Jesus Gonzalze Primary Care Provider [phone] HUMAIRA Cummings Attending Provider [phone] MD Jesus Gonzalez Attending Provider MD Elyssa [...] [phone] MD Russell Shields Attending Provider [phone] MD Jesus Gonzalez Attending Provider Hank ([facility]), MARILEE Platt Attending Provider [phone] Jesus Gonzalez MD Unavailable Jesus Gonzalez MD Primary Care Provider Jesus Gonzalez MD Unavailable Jesus Gonzalez MD Primary Care Provider Jesus Gonzalez MD Primary Care Provider MD Jesus Gonzalez Primary Care Provider MD Jesus Gonzalez Attending Provider MD Zulema Wood Attending Provider [phone] PINEDAFRANKLO F Referring Unavailable JESUS GONZALEZ Primary [...] Attending Provider Jesus Gonzalez MD Attending Provider [facility], [place]ulema Unavailable UnavailJesus Ko MD Primary Care Provider [phone] Elyssa Gomes MD Attending Provider Jesus Gonzalez MD Attending Provider [phone] Jesus Gonzalez MD Primary Care Provider Krishan Nuñez DO Attending Provider Darrick MCGHEE, Andrius Vytautviviane Attending Unavailable Giedraitis , Andrius Vytautas Attending Unavailable Giedraitis , Andrius Vytautas Attending Unavailable Giedraitis , Andrius Vytautas Attending Unavailable Giedraitis , Andrius Vytautas Attending Unavailable Giedraitis , Andrius Vytautas Attending Unavailable Mayda Hendrix APRN Emergency Provider [phone] [facility], [place]ma Unavailable Unavaila ERIK Loya Attending Unavailable HOY, JESUS M Primary Care Unavailable HOY, JESUS M Primary Care Unavailable STEPHANIE MYO Attending Unavailable ZULEMA WOOD Attending Unavailable HOY, [...] Care Provider Jesus Gonzalez MD Attending Provider Krishna Nuñez DO Attending Provider [phone] Mayda Hendrix APRN Emergency Provider Damaris BROWN STOCK WASHER-CChantal Attending Provider [phone] Elyssa Gomes MD Attending Provider [phone] Hoy, Jesus M Admitting Unavailable Hoy, Jesus [...] (Original)acetaminophen 325 mg oral tablet (16 sources)Start: 05-76-5478xcmq 2 tablets enteral route every four hours as neededacetaminophen (TYLENOL) 325 mg tablet 2 tablets by ORAL/FEEDING TUBE route every 4 hours as needed for pain. 02/23/2025 Activeacetaminophen 300 mg / butalbital 50 mg / caffeine 40 mg oral capsule (20 sources)Barbiturate, Central Nervous System Stimulant, MethylxanthineStart: 70-04-1559iewh 1 capsule by mouth every four to six hours as neededStart: 02-18-2021 End: 41-39-3971yfvm 1 tablet by mouth every four hours as needed, then take 4 tablets by mouth once daily as neededacetaminophen 325 mg-caffeine 40 mg- butalbital 50 mg (FIORICET) per tablet Take 1 tablet by mouth every four hours as needed Max 4 per day 0 02/18/2021 06/30/2023 Discontinued (Course of therapy completed)take 1 tablet by mouth four times daily as needed for headache zaitmrjxrt-pbyooyjkwnset-ejgytkdm 50-325-40 MG tablet TAKE 1 TABLET BY MOUTH FOUR TIMES DAILY NEEDED FOR HEADACHE Oral for 15 Active End: 28-53-1224zcrywzakcmads 325 mg-caffeine 40 mg-butalbital 50 mg (FIORICET) per 15 mL oral liquidtake 1 capsule by mouth every four hoursFioricet 50-300-40 MG 1 capsule as needed Orally every 4 hrs ActiveComment on above:Take 1 tablet by mouth every four hours as needed Max 4 per dayacetaminophen 325 mg / HYDROcodone bitartrate 5 mg oral tablet (20 sources)Opioid AgonistStart: 71-79-0832iykb 1 tablet by mouth every four to six hours as needed for painalbuterol 0.83 mg/ml inhalation solution (20 sources)beta2-Adrenergic AgonistStart: 93-78-0385lkjv 2.5 mg by inhalation four times daily [...] oral tablet (20 sources)Penicillin-class AntibacterialStart: 07-13-2024 End: 77-04-9853zuqr 1 tablet by mouth in the morningamoxicillin-clavulanate (Augmentin) 875-125 MG tablet Indications: Tooth infection Take 1 tablet (875 mg) by mouth in the morning and 1 tablet (875 mg) before bedtime. Do all this for 10 days. 20 tablet 07/13/2024 07/23/2024 ActiveStart: 05-16-2019 End: 68-85-0287hgrq 1 tablet by mouth twice dailyAmoxicillin-Pot Clavulanate (Augmentin) 875-125 mg tablet Discontinued 1 TAB PO Twice daily 20 10 0September 2018 11:00pm September 11, 2020 6:25amStart: 10-09-2017 End: 47-89-7150rtpa 1 tablet by mouth twice dailyAmoxicillin-Pot Clavulanate (Augmentin) 875-125 mg tablet Discontinued 1 TAB PO Twice daily 20 10 0January 2017 12:00am October 28, 2018 11:18amaspirin 325 mg oral tablet (20 sources)Platelet Aggregation Inhibitor, Nonsteroidal Anti-inflammatory Drug Start: 37-06-0735jzjq 1 tablet by mouth twice dailybenzonatate 100 mg oral capsule (20 sources)Non-narcotic AntitussiveStart: 72-77-3358juwz 2 capsules by mouth every four hours as needed for coughStart: 40-00-6443barh 200 mg by mouth every four hoursBenzonatate Active 200 MG PO Q4H October 10, 2021 1:00ambenzonatate (TESSALON PERLES ORAL) Activetake 1 capsule by mouth three times daily as needed Tessalon Perles 100 MG 1 capsule as needed Orally Three times a day Active benzonatate (TESSALON PERLES ORAL)Blood Glucose Monitoring Suppl (True Metrix Meter) w/Device kit (11 sources)Start: 31-17-4677Eapkm Glucose Monitoring Suppl (True Metrix Meter) w/Device kit USE TO TEST BLOOD SUGAR EVERY DAY 03/10/2023 Activebrexpiprazole 2 mg oral tablet (20 sources)Atypical AntipsychoticStart: 10-28-2018 End: 34-03-3441miju 1 tablet by mouth once dailyComment on above:Take 2 mg by mouth once daily.budesonide 0.5 mg/ml inhalation suspension (20 sources)CorticosteroidStart: 09-11-2020 End: 01-62-8486hpfb 1 mg by inhalation once daily in the morningtake 4 mL by inhalation four times dailyPulmicort 1 MG/2ML 4 ml Inhalation Four times a day ActiveComment on above:INHALE 1 (ONE) vial via NEBULIZER ONCE DAILYdapagliflozin 5 mg oral tablet (20 sources)Sodium-Glucose Cotransporter 2 InhibitorStart: 12-18-2018 End: 92-67-8729tiln 1 tablet by mouth once dailyComment on above:Take 5 mg by mouth once daily.dexamethasone 2 mg oral tablet (12 sources)CorticosteroidStart: 02-22-2025 End: 84-00-9077bixp 4 tablets by mouth twice daily at [...] AM EDT 02/22/2025 03/01/2025 ActiveStart: 01-04-2021 End: 95-12-3380djjc 1 tablet by mouth once dailydexAMETHasone (DECADRON) 6 mg tablet TAKE 1 TABLET BY MOUTH EVERY DAY FOR 6 DAYS 0 01/04/2021 06/26/2023 DiscontinuedComment on above:TAKE 1 TABLET BY MOUTH EVERY DAY FOR 6 DAYS dexlansoprazole 60 mg delayed release oral capsule (20 sources)Proton Pump InhibitorStart: 12-22-2019 End: 45-22-1342mopl 1 capsule by mouth twice dailydexlansoprazole (Dexilant) [address] capsule 1 capsule 1 (one) time each day at the same time. ActiveComment on above:Take 1 capsule by mouth twice daily.Dexlansoprazole (Dexilant) 60 mg capsule,biphase delayed releas (20 sources)Start: 66-97-4104pxcf 1 capsule by mouth twice dailyDexlansoprazole (Dexilant) 60 mg capsule,biphase delayed releas Active 60 MG PO Twice daily 2021 12:00amStart: 25-46-0031uqxy 1 capsule by mouth twice daily Dexlansoprazole (Dexilant) 60 mg capsule,biphase delayed releas Active 60 MG PO Twice daily 2021 1:00amdiclofenac sodium 0.01 mg/mg topical gel (20 sources)Nonsteroidal Anti-inflammatory DrugStart: 42-73-8788Fsyzn: 51-52-1598Wwvmglqigc Sodium (Voltaren Arthritis Pain) 1 % gel Active 4 GM TOPICAL Four times daily February 01, 2025 12:00am apply to single knee, ankle, foot; for foot includes sole/toes/top of footStart: 01-27-2020 End: 79-69-3090vgaa 1 tablet by mouth in the morningdiclofenac (Voltaren) 75 MG EC tablet Take 75 mg by mouth in the morning and 75 mg before bedtime. 1 10/01/2021 ActiveComment on above:Take 75 mg by mouth twice daily.docusate sodium 50 mg / sennosides, skilled nursing 8.6 mg oral tablet (17 sources)Start: 07-41-0663pish 1 tablet by mouth every twelve hours as needed senna-docusate (SENNA-S) 8.6-50 mg per tablet Take 1 tablet by mouth two times a day as needed for constipation. 100 tablet 02/22/2025 10:55 AM EDT 02/22/2025 Activetake 1 tablet by mouth every twelve hoursSenokot S 8.6-50 MG 1 tablet as needed Orally Twice a day Activedoxepin hydrochloride 10 mg oral capsule (20 sources)Tricyclic AntidepressantStart: 86-12-8462pcbc 1 capsule by mouth three times daily as needed for anxietytake 1 capsule by mouth every twenty-four hoursDoxepin HCl 10 MG 1 capsule at bedtime Orally Once a day Activedoxycycline hyclate 100 mg oral tablet (20 sources)Tetracycline-class DrugStart: 58-55-0124ckfr 1 tablet by mouth twice dailyDULoxetine 30 mg delayed release oral capsule (20 sources)Serotonin and Norepinephrine Reuptake InhibitorStart: 56-58-3713fqmy 1 capsule by mouth once dailyDULoxetine DR (CYMBALTA) 30 mg capsule Indications: Fibromyalgia TAKE 1 CAPSULE BY MOUTH EVERY DAY ALONG WITH THE 60MG CAPSULE TO EQUAL 90MG A DAY 90 capsule 2 05/17/2025 ActiveStart: 05-30-2024 End: 88-47-4180qxfd 1 tablet by mouth once dailyDULoxetine (CYMBALTA) 30 mg capsule Indications: Fibromyalgia Take one tab along with the 60mg tab to equal 90mg po qd 30 capsule 6 10/10/2024 ActiveStart: 10-01-2023 End: 72-60-1649phos 1 capsule by mouth once dailyDULoxetine (CYMBALTA) 60 mg capsule Indications: Fibromyalgia TAKE 1 CAPSULE BY MOUTH EVERY DAY 90 capsule 2 03/06/2025 ActiveStart: 11-03-2022 End: 23-66-5860itqe 1 capsule by mouth once dailyDULoxetine (CYMBALTA) 60 mg capsule Take 1 capsule by mouth once daily. 30 capsule 3 04/13/2023 ActiveStart: 09-29-2022 End: 09-38-1633bzwv 1 capsule by mouth once dailyDULoxetine (CYMBALTA) 30 mg capsule Take 1 capsule by mouth once daily. 30 capsule 3 09/29/2022 06/26/2023 DiscontinuedComment on above:Take 1 capsule by mouth once daily.TAKE 1 CAPSULE BY MOUTH EVERY DAYetodolac 400 mg oral tablet (20 sources)Nonsteroidal Anti-inflammatory DrugStart: 09-09-2024 End: 55-30-4963urvd 1 tablet by mouth every twelve hours for arthritis and arthritisetodolac (LODINE) 400 mg tablet Indications: Inflammatory arthritis TAKE 1 TABLET BY MOUTH TWICE A DAY NEEDED 60 tablet 3 02/27/2025 ActiveStart: 09-28-2023 End: 77-48-1683mlfc 1 tablet by mouth twice daily as neededetodolac (LODINE) 400 mg tablet One tab po bid prn 60 tablet 3 01/27/2024 08/28/2024 Discontinued Comment on above:One tab po bid [id number] actuat formoterol fumarate 0.005 mg/actuat / mometasone furoate 0.2 mg/actuat metered dose inhaler (20 sources)Corticosteroid, beta2-Adrenergic AgonistStart: 28-53-8358zhqr 1 puff(s) by inhalation twice daily End: 92-33-4158cjlkcsjyfj-formoterol (DULERA) 100-5 mcg/actuation inhaler glycopyrrolate 1 mg oral tablet (20 sources)Start: 40-85-3603qtrh 2 tablets by mouth twice dailyglycopyrrolate (ROBINUL) 1 mg tablet Take 2 mg by mouth twice daily. 02/16/2021 ActiveStart: 10-28-2018 End: 67-30-3394uvzm 1 tablet by mouth once dailyStart: 52-00-4141gitz 3 mg by mouth once dailyGlycopyrrolate Active 3 MG PO Daily October 28, 2018 1:00am Comment on above:Take 2 mg by mouth twice daily.hydroCHLOROthiazide 25 mg oral tablet (20 sources)Thiazide DiureticStart: 09-11-2020 End: 83-19-9339dawr 1 tablet by mouth once dailyComment on above:Take 25 mg by mouth once daily.hydroxychloroquine sulfate 200 mg oral tablet (20 sources)Antimalarial, Antirheumatic AgentStart: 07-04-2021 End: 07-40-8994fqhn 1 tablet by mouth twice dailyComment on above:Take 1 tablet by mouth twice daily.TAKE 1 TABLET BY MOUTH TWICE DAILYTake 1 tablet by mouth two times a day.ipratropium bromide 0.2 mg/ml inhalation solution (20 sources)AnticholinergicStart: 92-71-7856izyg 0.5 mg by inhalation every six hours as neededStart: 96-42-7059edsq 0.5 mg by inhalation every six hours Ipratropium [place] Active 0.5 MG INHALATION Q6H September 11, 2020 1:00amiv contrast (will be provided with radiology test) (2 sources)Start: 03-02-2025 End: 24-42-1639zpjuxm 1 dose intravenously onceiv contrast (will be [...] 1 each 03/02/2025 03/03/2025 ActiveStart: 01-19-2024 End: 31-75-4984aaavrw 1 dose intravenously once, then inject 1 [...] oral tablet (20 sources)Mood Stabilizer, Anti-epileptic AgentStart: 53-36-7646vkgp 3 tablets by mouth once dailyStart: 15-07-2559ucxp 600 mg by mouth once dailyLamotrigine Active 600 MG PO Daily September 12, 2017 1:00amtake 1 tablet by mouth every twenty-four hourslamoTRIgine 200 MG 1 tablet on the tongue and allow to dissolve Orally Once a day ActiveComment on above:TAKE 3 TABLETS EVERY DAYlevothyroxine sodium 0.05 mg oral tablet (20 sources)l-ThyroxineStart: 65-67-4798fezzmvolhsjwi (Synthroid, Levoxyl) 50 MCG tablet 1 (one) time each day at the same time 05/17/2024 Activelisinopril 10 mg oral tablet (20 sources)Angiotensin Converting Enzyme InhibitorStart: 05-85-1035iblr 1 tablet by mouth once dailylubiprostone 0.024 mg oral capsule (20 sources)Chloride Channel ActivatorStart: 83-81-6499ltwg 1 capsule by mouth twice dailyStart: 32-54-3112zzek 1 capsule by mouth twice dailyLubiprostone (Amitiza) 24 mcg capsule Active 24 MCG PO Twice daily October 28, 2018 12:00amStart: 08-49-6844zwrg 1 capsule by mouth twice dailyLubiprostone (Amitiza) [...] hydrochloride 500 mg oral tablet (20 sources)BiguanideStart: 82-38-2636bzfm 2 tablets by mouth twice dailyStart: 89-60-2866dvup 1000 mg by mouth twice dailyMetformin Active 1000 MG PO Twice daily September 12, 2017 1:00ammetFORMIN (GLUCOPHAGE) 500 mg tablet Active methocarbamol 500 mg oral tablet (20 sources)Muscle RelaxantStart: 03-13-2025 End: 92-46-7739qhnn 1 tablet by mouth twice daily as neededmethocarbamol (ROBAXIN) 500 mg tablet Indications: Chronic daily headache TAKE 1 TABLET BY MOUTH TWICE A DAY NEEDED 45 tablet 2 05/18/2025 ActiveStart: 02-22-2025 End: 87-40-0873opue 1 tablet by mouth four times daily as needed for pain methocarbamol (ROBAXIN) 500 mg tablet Indications: Chronic daily headache Take 1 tablet by mouth four times a day as needed (muscle spasm, jaw pain). 02/22/2025 03/13/2025 DiscontinuedStart: 10-03-2024 End: 55-61-8410tprr 1 tablet by mouth twice daily as neededmethocarbamol (ROBAXIN) 500 mg tablet Indications: Chronic daily headache TAKE 1 TABLET BY MOUTH TWICE A DAY NEEDED 45 tablet 2 12/29/2024 ActiveStart: 05-26-2024 methocarbamol (Robaxin) 500 MG tablet Take 500 mg by mouth every 12 (twelve) hours if needed 05/26/2024 ActiveStart: 02-05-2024 End: 60-79-1360ezqq 1 tablet by mouth twice daily as neededmethocarbamol (ROBAXIN) 500 mg tablet Indications: Chronic daily headache Take 1 tablet by mouth two times a day as needed. 45 tablet 2 05/26/2024 ActiveMetoprolol (14 sources)beta-Adrenergic BlockerToprol XL Nflgjq85 hr mirabegron 25 mg extended release oral tablet (20 sources)beta3-Adrenergic AgonistStart: 19-73-8690gdwu 1 tablet by mouth once dailyMyrbetriq 25 MG 24 hr tablet TAKE 1 TABLET BY MOUTH EVERY DAY FOR 30 DAYS 06/23/2024 Activetake 50 mg by mouth once dailymirabegron (MYRBETRIQ) 50 mg Tb24 Take 50 mg by mouth once daily. Activemupirocin 0.02 mg/mg topical ointment (6 sources)RNA Synthetase Inhibitor AntibacterialStart: 02-14-2025 End: 48-11-2092wppytrqiu (BACTROBAN) 2 % ointment two times a day for 5 days. Apply 0.5 inch with cotton swab (Q-tip) to each nostril in the morning and evening for 5 days prior to and including day of surgery. 22 g 02/14/2025 02/19/2025 Activenortriptyline 10 mg oral capsule (20 sources)Tricyclic AntidepressantStart: 64-94-5342lwpp 1 capsule by mouth once daily at bedtimenortriptyline (PAMELOR) 10 mg capsule Indications: Chronic daily headache Take 1 capsule by mouth daily at bedtime. 30 capsule 3 03/13/2025 ActiveStart: 01-06-2025 End: 47-11-9984hxydrdznjskkd (PAMELOR) 10 mg capsule Indications: Chronic daily headache TAKE 1 CAPSULE AT BEDTIMEFOR 2 WEEKS, THEN 1 CAPSULE EVERY OTHER DAY FOR 1 WEEK THEN STOP 90 capsule 1 01/26/2025 02/14/2025Discontinued (Course of therapy completed)Start: 54-83-8779Ewssiwemjtvxs 25 mg capsule Active 25 MG PO November 25, 2023 12:00amStart: 06-26-2023 End: 86-64-2078Rakujep on above:Take 1 capsule by mouth daily at bedtime. 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 3 tablet 02/22/2025 10:55 AM EDT 02/22/2025 02/28/2025 ActiveStart: 10-09-2017 End: 95-35-3365mqfu 1 tablet by mouth four times daily as needed for pain Oxycodone 30 mg Tablet Discontinued 30 MG PO Four times daily as needed for Pain October 09, 201712:00am October 28, 2018 11:19amStart: 09-12-2017 End: 28-16-4821plch 1 tablet by mouth twice daily, then take 1 tablet by mouth every twelve hoursOxycodone (Oxycontin) 40 mg tablet extended release 12hr Discontinued 40 MG PO Twice daily 2016 12:00am October 28, 2018 11:19ampioglitazone 15 mg oral tablet (20 sources)Peroxisome Proliferator Receptor alpha Agonist, Peroxisome Proliferator Receptor gamma Agonist, ThiazolidinedioneStart: 96-22-0461pkpi 1 tablet by mouth once dailyStart: 09-12-2017 End: 29-42-7278Ieclnrghjhzb 15 mg tablet Discontinued September 12, 2017 12:00am October 09, 2017 9:47pmStart: 09-12-2017 End: 69-38-8510Egjirbrzwjdo 15 mg tablet Discontinued TABLET September 12, 2017 1:00am October 09, 2017 10:47pmpredniSONE 20 mg oral tablet (20 sources)Start: 53-98-6446ltwiwwQWNO (Deltasone) 20 MG tablet Indications: Rib pain on right side Take 3 tabs for 2 days, 2 tabs for 2 days, 1 tab for 2 days, 1/2 tab for 2 days then stop 13 tablet 06/05/2025 ActiveStart: 09-09-2024 End: 92-69-1199cmts 1-2 tablets by mouth once dailypredniSONE (DELTASONE) 5 mg tablet Indications: Inflammatory arthritis TAKE 1 TO 2 TABLETS BY MOUTHEVERY DAY 60 tablet 3 02/27/2025 ActiveStart: 12-11-2022 End: 46-23-8782lisk 1-2 tablets by mouth once dailypredniSONE (DELTASONE) 5 mg tablet TAKE 1 TO 2 TABLETS BY MOUTH EVERY DAY 60 tablet 3 03/25/2024 08/28/2024 DiscontinuedStart: 11-11-2019 End: 43-21-6782yixi 2 tablets by mouth once dailyPrednisone 20 mg tablet Discontinued 40 MG PO Daily 10 5 0 November 11, 2019 12:00am September 11, 2020 6:28amStart: 11-11-2019 End: 93-51-0532rscq 40 mg by mouth once dailyPrednisone Discontinued 40 MG PO Daily 10 5 November 11, 2019 1:00am September 11, 2020 7:28amStart: 12-18-2018 End: 44-28-5594xfaz 1 tablet by mouth once daily at [...] qdpregabalin 50 mg oral capsule (16 sources)Start: 85-39-4580srnn 1 capsule by mouth in the morningpregabalin (Lyrica) 50 MG capsule Take 50 mg by mouth in the morning and 50 mg before bedtime. 06/19/2022 Activetake 1 capsule by mouth every twenty-four hoursLyrica 100 MG 1 capsule Orally Once a day Not-Takingpromethazine hydrochloride 25 mg oral tablet (11 sources)PhenothiazineStart: 98-31-7121xutq 1 tablet by mouth every eight hours as neededpromethazine (Phenergan) 25 MG tablet Take 25 mg by mouth every 8 (eight) hours if needed. 02/17/2023 ActiveraNITIdine 300 mg oral tablet (20 sources)Histamine-2 Receptor AntagonistStart: 21-39-4540yeao 1 tablet by mouth once daily as neededroflumilast 0.5 mg oral tablet (20 sources)Phosphodiesterase 4 InhibitorStart: 09-12-2017 End: 65-66-7321bnja 1 tablet by mouth once dailytake 1 tablet by mouth every twenty-four hoursDaliresp 500 MCG 1 tablet Orally Once a day Activesimvastatin 20 mg oral tablet (20 sources)HMG-CoA Reductase InhibitorStart: 73-32-1537oqpk 1 tablet by mouth once dailyComment on above:Take 20 mg by mouth once daily.sulfamethoxazole 800 mg / trimethoprim 160 mg oral tablet (3 sources)Dihydrofolate Reductase Inhibitor Antibacterial, Sulfonamide AntimicrobialStart: 03-15-2025 End: 31-74-5426jyzn 1 tablet by mouth twice dailysulfamethoxazole-trimethoprim (BACTRIM DS) 800-160 mg per tablet Take 1 tablet by mouth two times aday for 5 days. 10 tablet 03/20/2025 03/25/2025 ActivetiZANidine 4 mg oral tablet (20 sources)Central alpha-2 Adrenergic AgonistStart: 06-26-2023 End: 43-19-4650edtv 1 tablet by mouth every eight hours as neededtiZANidine (ZANAFLEX) 4 mg tablet Indications: Chronic daily headache take 1 tablet by mouth every 8 hours as needed 60 tablet 3 02/02/2024 02/05/2024 Discontinued (Side Effects)Start: 73-36-7243hfiu 2 tablets by mouth once daily at bedtime tiZANidine (Zanaflex) 4 MG tablet TAKE 2 TABLETS BY MOUTH DAILY AT BEDTIME 04/11/2022 ActiveComment on above:Take 1 tablet by mouth every 8 hours as needed.topiramate 50 mg oral tablet (20 sources)Start: 01-01-8362vjom 1 tablet by mouth once dailytraMADol hydrochloride 50 mg oral tablet (5 sources)Opioid AgonistStart: 11-32-0717rcwq 1 tablet by mouth every four to six hours as needed for paintraMADol HCl 50 MG 1 tablet as needed for pain Orally every 4-6 hours for 7 days prn Jul, Activedivalproex sodium 500 mg delayed release oral tablet (11 sources)Mood Stabilizer, Anti-epileptic AgentStart: 51-55-8122rwkd 1 tablet by mouth in the morningdivalproex (Depakote) 500 MG EC tablet Take 500 mg by mouth in the morning and 500 mg before bedtime. 07/18/2022 Activevilazodone hydrochloride 40 mg oral tablet (20 sources)Start: 09-12-2017 End: 00-58-0147krpg 1 tablet by mouth once dailyComment on above:Take 40 mg by mouth once daily.Water Pills - (18 sources)Water Pills - as directed Orally Active Completed/Discontinued Medications MedicationDrug Class(es)DatesSig (Normalized)Sig (Original)acetaminophen 325 mg / oxyCODONE hydrochloride 5 mg oral tablet (20 sources)Opioid AgonistStart: 09-18-2021 End: 91-37-7578wyje 1 tablet by mouth every four to six hours as needed for pain Oxycodone-Acetaminophen (Percocet) 5-325 mg tablet Discontinued 1 TAB PO EVERY 4-6 HOURS as needed for pain 10 3 0 September 18, 2021 October 02, 2021 3:22am Acute appendicitis Unspecified acute appendicitisamylase 284339 unt / lipase 11612 unt / protease 81328 unt delayed release oral capsule (20 sources)Start: 09-12-2017 End: 15-34-5189suiq 12871-32896 capsules by mouth three times daily Fmegsk-Mknygoqd-Cixzzce (Pork) (Creon) 24,000-76,000 -120,000 unit capsule,delayed release(DR/EC) Discontinued 1 TAB PO Three times daily September 12, 2017 12:00am October 28, 2018 11:18amazithromycin 500 mg oral tablet (20 sources)Macrolide AntimicrobialStart: 10-11-2017 End: 61-69-8991uswq 1 tablet by mouth once dailyAzithromycin 500 mg tablet Discontinued 500 MG PO Daily 5 5 0 October 11, 2017 12:00am October 15, 2017 12:00am October 16, 2017 12:04amcanagliflozin 100 mg oral tablet (20 sources)Sodium-Glucose Cotransporter 2 InhibitorStart: 09-12-2017 End: 06-73-5136pido 1 tablet by mouth once dailyCanagliflozin 100 tablet Discontinued 100 MG PO Daily September 12, 2017 12:00am December 18, 2018 12:46pm carisoprodol 350 mg oral tablet (20 sources)Muscle RelaxantStart: 09-12-2017 End: 87-19-4605yvpi 1 tablet by mouth four times daily as needed for pain Carisoprodol 350 mg tablet Discontinued 350 MG PO Four times daily as needed for Pain September 12, 2017 12:00am October 28, 2018 11:18amcephalexin 500 mg oral tablet (20 sources)Cephalosporin AntibacterialStart: 09-18-2021 End: 61-67-0882lllu 1 tablet by mouth four times dailyCephalexin 500 mg tablet Discontinued 500 MG PO Four times daily 40 0 September 18, 2021 12:00am October 10, 2021 11:45amGel-Syn (20 sources)Start: 98-93-4594Pfn-Syn Feb, 2 mLStart: 93-25-7135Rli-Syn Feb, 2 mLStart: 63-25-4016Gdr-Syn Feb, 2 mLhydrOXYzine pamoate 25 mg oral capsule (20 sources)AntihistamineStart: 09-12-2017 End: 22-41-4943oita 1 capsule by mouth four times daily as needed for anxiety Hydroxyzine Pamoate 25 mg capsule Discontinued 25 MG PO Four times daily as needed for Anxiety September 12, 2017 12:00am September 11, 2020 6:26am ibuprofen 600 mg oral tablet (20 sources)Nonsteroidal Anti-inflammatory DrugStart: 09-18-2021 End: 29-11-1563maog 4 tablets by mouth every twenty-four hours for painIbuprofen 600 mg tablet Discontinued 600 MG PO EVERY 4-6 HOURS as needed for pain 20 7 1 September 18, 2021 12:00am October 10, 2021 11:49am do not exceed 4 doses in a 24 hour periodStart: 23-73-9596opsk 1 tablet by mouth every six hours as needed for paintake 1 tablet by mouth four times dailyibuprofen 800 MG tablet TAKE 1 TABLET FOUR TIMES DAILY Oral for 30 Active2 ml ketorolac tromethamine 30 mg/ml cartridge (8 sources)Nonsteroidal Anti-inflammatory Drug, Cyclooxygenase InhibitorStart: 06-05-2025 End: 41-14-230127 mg, Intramuscular, Once, On Thu06/05/25 at 1830, For 1 dose, Max daily dose: 120 mg. Max duration: 5 days totalStart: 06-05-2025 End: 82-34-832228 mg, Intramuscular, Once, On Thu06/05/25 at 1830, For 1 dose, Max daily dose: 120 mg. Max duration: 5 days totalStart: 06-05-2025 End: 94-00-6640cuceowjlg (Toradol) injection 60 mgStart: 06-05-2025 End: 15-82-4218qyibejswf (Toradol) injection 60 mgStart: 05-23-2025 End: 28-73-121524 mg, Intramuscular, Once, On Thu05/23/25 at 1400, For 1 dose, Max daily dose: 120 mg. Max duration: 5 days totalStart: 05-23-2025 End: 52-76-8482fksoquqfo (Toradol) injection 60 mgStart: 05-23-2025 End: 92-39-365454 mg, Intramuscular, Once, On Thu05/23/25 at 1400, For 1 dose, Max daily dose: 120 mg. Max duration: 5 days totalStart: 05-23-2025 End: 81-04-8830wxovaijbj (Toradol) injection 60 mglevETIRAcetam 1000 mg oral tablet (3 sources)Start: 02-22-2025 End: 45-95-9324chlf 1 tablet by mouth twice dailylevETIRAcetam (KEPPRA) 1,000 mg tablet Take 1 tablet by mouth two times a day for 12 doses. 12 tablet 02/22/2025 10:55 AM EDT 02/22/2025 03/02/2025 Discontinued (Course of therapy completed) levoFLOXacin 500 mg oral tablet (10 sources)Quinolone AntimicrobialStart: 01-04-2021 End: 97-78-6010pbyz 1 tablet by mouth once dailylevoFLOXacin (LEVAQUIN) 500 mg tablet Take 500 mg by mouth once daily. 0 01/04/2021 06/26/2023 Discontinued Comment on above:Take 500 mg by mouth once daily.lurasidone hydrochloride 120 mg oral tablet (20 sources)Atypical AntipsychoticStart: 09-12-2017 End: 55-26-6688giry 1 tablet by mouth once dailyLurasidone (Latuda) 120 mg tablet Discontinued 120 MG PO Daily September 12, 2017 12:00am 2018 11:18ammilnacipran hydrochloride 100 mg oral tablet (20 sources)Serotonin and Norepinephrine Reuptake InhibitorStart: 02-16-2021 End: 08-28-3188wmga 1 tablet by mouth twice dailySAVELLA 100 mg tab Take 100 mg by mouth twice daily. 0 02/16/2021 06/30/2023 Discontinued (Course of therapy completed)Start: 13-07-0529gtem 1 tablet by mouth twice dailyComment on above: Take 100 mg by mouth twice daily.pantoprazole 40 mg delayed release oral tablet (20 sources)Proton Pump InhibitorStart: 09-12-2017 End: 54-44-0573ahiy 1 tablet by mouth twice dailyPantoprazole 40 tablet,delayed release (DR/EC) Discontinued 40 MG PO Twice daily September 12, 2017 12:00am September 11, 2020 6:28amphentermine hydrochloride 37.5 mg oral tablet (11 sources)Sympathomimetic Amine AnorecticStart: 01-25-2021 End: 04-32-5252luve 1 tablet by mouth once dailyPhentermine HCl 37.5 mg tablet Take 37.5 mg by mouth once daily. 0 01/25/2021 06/30/2023 Discontinued (Course of therapy completed)Comment on above:Take 37.5 mg by mouth once daily. sucralfate 1000 mg oral tablet (20 sources)Aluminum ComplexStart: 10-28-2018 End: 68-76-8090isry 1 tablet by mouth at bedtimeSucralfate (Carafate) 1 gram tablet Discontinued 1 GM PO Before meals and at bedtime 60 0 October 02, 2021 12:00am October 10, 2021 11:59amCarafate 1 GM 1 tablet on an empty stomach Orally PRN ActiveTheraputic Injection (20 sources)Start: 28-89-9451Qojulmwisg Injection Jul, 168 UStart: 53-62-9276Tqprrqujtr Injection Jul, 380 mgtriamcinolone acetonide 40 mg/ml injectable suspension (20 sources)CorticosteroidStart: 58-53-3680Ungyjtw-40 January, 20 mgStart: 26-62-1447Bqdrprb-40 Sep, 30 mgStart: 60-67-2268Pwvktig-40 Mar, 40 mgStart: 67-50-5840Mtriyjf -40 mg Nov, 40 mgStart: 22-06-6811Rqwejcp -40 mg Aug, 20 mgStart: 05-94-5347Tgxqxrg -40 mg Jul, 40 mg Start: 52-57-4845Grwjedc -40 mg May, 20 mgStart: 75-91-6814Lvrigru -40 mg Mar, 40 mgStart: 52-98-0715Qlxeitx -40 mg Nov, 40 mgStart: 63-78-0574Rpqceyq -40 mg January, 40 mgStart: 34-26-9161Riwqmmo -40 mg Jun, 40 mgStart: 78-54-4789Emavcte -40 mg Mar, 40 mgStart: 17-09-5757Umzvzqq -40 mg Nov, Problems Active Problems Problem ClassificationProblemDateDocumented DateEpisodic/ChronicAbdominal pain (20 sources)Upper abdominal pain; Translations: [Upper abdominal pain, unspecified]05-54-9517JqzwmzsaLalhean disorders (20 sources)Anxiety; Translations: [Anxiety disorder, unspecified]Onset: 069678-44-7880GgwskpdAkglenyoamuk and other appendiceal conditions (20 sources)Acute appendicitis; Translations: [Unspecified acute appendicitis] 23-42-2826RhwaebejRnzumtfa (11 sources)Nuclear senile cataract; Translations: [Age-related nuclear cataract, unspecified eye]Onset: 198249-22-8646XzgimtlTvkjwrt obstructive pulmonary disease and bronchiectasis (20 sources)Acute exacerbation of chronic obstructive airways disease; Translations: [Chronic obstructive lung disease]Onset: ChronicConditions associated with dizziness or vertigo (6 sources)Dizziness and giddiness; Translations: [Dizziness and giddiness] Onset: 324822-06-4456NzopmfcjExnylbqbgwvmc and procreative management (4 sources)Encounter for surveillance of injectable contraceptive; Translations: [Encounter for Depo-Provera contraception]EpisodicDiabetes mellitus with complications (20 sources)Secondary diabetes mellitus; Translations: [Other specified diabetes mellitus with diabetic autonomic (poly)neuropathy]ChronicDiabetes mellitus without complication (20 sources)Diabetes mellitus type 2 without retinopathy; Translations: [Type 2 diabetes mellitus without complications]Onset: hronic Disorders of lipid metabolism (20 sources)Mixed hyperlipidemia; Translations: [Mixed hyperlipidemia]Onset: 284826-46-5189RohmqoyXvdlxxyrv of teeth and jaw (2 sources)Infection of tooth; Translations: [Periapical abscess without sinus] 38-96-6433EzdvasztD Codes: Natural/environment (20 sources)Dog bite - wound; Translations: [Bitten by dog, initial encounter] 82-44-0433RrhagfuuAxuqylwffn disorders (20 sources)Gastroesophageal reflux disease; Translations: [Gastro-esophageal reflux disease without esophagitis]Onset: 107296-09-4482TgoefphCjqqfdzri and duodenitis (19 sources)Chronic superficial gastritis; Translations: [Chronic superficial gastritis without bleeding]ChronicGastritis and duodenitis (20 sources)Gastritis; Translations: [Gastritis, unspecified, without bleeding] 52-47-8078YqkenjebLfexdtkgmzamglci hemorrhage (20 sources)Rectal hemorrhage; Translations: [Hemorrhage of anus and rectum] 81-29-9716FqmcyfkaIgvchokw (11 sources)Open angle with borderline findings, low risk, bilateral; Translations: [Open angle with borderlinefindings, low risk]Onset: 03-24-2023 72-91-4114BzpsrpmWlsneiss; including migraine (20 sources)Intractable chronic tension headache; Translations: [Chronic tension-type headache, intractable]Onset: 479470-52-8793IxklrdkTmgwmbzx; including migraine (11 sources)Medication overuse headache; Translations: [Drug-induced headache, not elsewhere classified, not intractable]73-99-7224UvnfcclgKyjyokdf; including migraine (1 source)Headache; including migraine; Translations: [Chronic daily headache] Onset: 09-67-0376Ymdtn valve disorders (1 source)Cardiac murmur, unspecified; Translations: [Cardiac murmur, unspecified]Onset: 03-71-7518TcwhmjdlYxoe disorders (1 source)Mood disorders; Translations: [Depression, unspecified depression type]Onset: 01-27-9897Fnvahw and vomiting (20 sources)Nausea; Translations: [Nausea]EpisodicNonspecific chest pain (1 source)Other chest pain; Translations: [Other chest pain]Onset: 06-19-2025 EpisodicOsteoarthritis (20 sources)Arthritis; Translations: [Unspecified osteoarthritis, unspecified site]Onset: 06-05-2021 Resolved: 97-54-3082PcsncmjWkcvy aftercare (3 sources)Patient encounter status; Translations: [Encounter for therapeutic drug level monitoring]20-59-6341MsgtmosmSutnb aftercare (1 source)Surgical follow-up; Translations: [Encounter for follow-up examination after completed treatment for conditions other than malignant neoplasm] 58-24-4111DunfnssbFfstb and unspecified benign neoplasm (19 sources)Neoplasm of meninges; Translations: [Benign neoplasm of meninges, unspecified]Onset: 353029-62-4402DpexsauEemfn and unspecified benign neoplasm (20 sources)Intracranial meningioma; Translations: [Benign neoplasm of cerebral meninges]Onset: 729542-65-2190LpzbjceRbxmn and unspecified benign neoplasm (4 sources)Benign neoplasm of meninges; Translations: [Benign neoplasm of meninges, unspecified]23-57-9907FjagrevIpgwf and unspecified benign neoplasm (3 sources)Benign neoplasm of meninges, unspecified; Translations: [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)]Onset: 05-01-5408Zsgiidi Other and unspecified benign neoplasm (1 source)Benign neoplasm of cerebral meninges; Translations: [Intracranial meningioma (HCC)]Onset: 21-77-6510JgoxsrsRjfmz bone disease and musculoskeletal deformities (19 sources)Aseptic necrosis of carpal bone; Translations: [Other osteonecrosis of right carpus]ChronicOther bone disease and musculoskeletal deformities (19 sources)Kienbock's disease of adults; 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]ChronicOther bone disease and musculoskeletal deformities (20 sources)Osteochondritis of the carpal lunate; Translations: [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], right hand]64-18-8918QqwlmqhSjkzq bone disease and musculoskeletal deformities (19 sources)Progressive avascular necrosis of lunate; 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]ChronicOther bone disease and musculoskeletal deformities (20 sources)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], right hand; Translations: [Juvenile osteochondrosis of upper extremity]Onset: 06-18-2021 Resolved: 56-80-4969HyevwxlCxant connective tissue disease (2 sources)Muscle pain; Translations: [Myalgia, unspecified site]EpisodicOther connective tissue disease (19 sources)Tendinitis of wrist; Translations: [Other enthesopathies, not elsewhere classified]EpisodicOther connective tissue disease (19 sources)Radial styloid tenosynovitis; Translations: [Radial styloid tenosynovitis [de Quervain]]EpisodicOther connective tissue disease (20 sources)Supraspinatus tear; Translations: [Unspecified rotator cuff tear or rupture of right shoulder, not specified as traumatic]56-75-6305PyyjhgynEnmqy connective tissue disease (6 sources)Unspecified rotator cuff tear or rupture of right shoulder, not specified as traumatic; Translations: [Tear of right supraspinatus tendon M75.101]Onset: 09-22-2021 Resolved: 74-24-4354GibeztvbUxywj connective tissue disease (1 source)Bicipital tendinitis, left shoulderEpisodicOther connective tissue disease (1 source)Other specified disorders of tendon, right shoulderEpisodicOther connective tissue disease (20 sources)Biceps tendinitis; Translations: [Bicipital tendinitis, unspecified shoulder]37-94-1801LhulxymyRnkca connective tissue disease (3 sources)Bicipital tendinitis, unspecified shoulder; Translations: [Bicipital tenosynovitis]04-36-8284CyqqvlkcKxbhp connective tissue disease (18 sources)Bursitis of left shoulder; Translations: [Bursitis of left shoulder] 48-77-0129CmsffwasLecsk connective tissue disease (5 sources)Bursitis of left shoulder; Translations: [Disorders of bursae and tendons in shoulder region, unspecified]58-43-8631XyxofalcTuprc disorders of stomach and duodenum (20 sources)Disorder of function of stomach; Translations: [Disease of stomach and duodenum, unspecified]75-30-6068BxrsfnzoQcrsb ear and sense organ disorders (11 sources)Otitis externa; Translations: [Unspecified otitis externa, unspecified ear]Onset: 134135-76-7177EvhextkYmzgb endocrine disorders (19 sources)Disorder of pancreatic internal secretion; 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, unspecified]ChronicOther fractures (8 sources)Fracture of rib; Translations: [Fracture of one rib, unspecified side, initial encounter for closedfracture]63-00-1091KpqapfvnElgze fractures (1 source)Fracture of one rib, unspecified side, initial encounter for closed fracture; Translations: [Fracture of one rib, unspecified side, initial encounter for closed fracture]Onset: 78-19-1154RtsxqnwiHvyno gastrointestinal disorders (19 sources)Constipation; Translations: [Constipation, unspecified]EpisodicOther gastrointestinal disorders (1 source)Abdominal distension (gaseous)EpisodicOther gastrointestinal disorders (1 source)EructationEpisodicOther gastrointestinal disorders (1 source)Diarrhea, unspecifiedEpisodicOther gastrointestinal disorders (1 source)Constipation, unspecifiedEpisodicOther lower respiratory disease (1 source)Pleurodynia; Translations: [Pleurodynia]Onset: 69-06-2380BvjypdttWnaed nervous system disorders (19 sources)Carpal tunnel syndrome; Translations: [Carpal tunnel syndrome, right upper limb]ChronicOther nervous system disorders (19 sources)Cubital tunnel syndrome; Translations: [Lesion of ulnar nerve, right upper limb]ChronicOther nervous system disorders (19 sources)Bilateral carpal tunnel syndrome; Translations: [Carpal tunnel syndrome, bilateral upper limbs]ChronicOther nervous system disorders (1 source)Carpal tunnel syndrome, right upper limbOnset: 08-12-2021 Resolved: 94-34-0986JurdklwRpqzy nervous system disorders (1 source)Mass lesion of brain; Translations: [Other specified disorders of brain]87-32-6977LiqaosiBgvoe nervous system disorders (1 source)Compression of brain; Translations: [Neoplasm causing mass effect and brain compression on adjacentstructures (HCC)]Onset: 48-55-0602BlqgdyfOycop nervous system disorders (20 sources)Pain in limb; Translations: [Other acute postprocedural pain] 37-81-6406GvpcfyvrFyiit non-traumatic joint disorders (1 source)Other specified arthritis, unspecified site; Translations: [Inflammatory arthritis]Onset: 41-50-4621SwlhjavVqtip non-traumatic joint disorders (20 sources)Pain of right wrist; Translations: [Pain in right wrist]03-22-2025 EpisodicOther non-traumatic joint disorders (20 sources)Pain in right shoulder; Translations: [Acute pain of right shoulder] Onset: 06-05-2021 Resolved: 63-72-4624JzxssqgzXgwfz non-traumatic joint disorders (16 sources)Pain in wrist; Translations: [Pain in right wrist]12-16-0775Iwcpkkrh Other nutritional; endocrine; and metabolic disorders (20 sources)Body mass index 30+ - obesity; Translations: [Body mass index (BMI) 33.0-33.9, adult]ChronicOther nutritional; endocrine; and metabolic disorders (20 sources)Severe obesity; Translations: [Class 3 severe obesity due to excess calories with serious comorbidity and body mass index (BMI) of 40.0 to 44.9 in adult]Onset: 014271-33-1598SfirnrqUjejs nutritional; endocrine; and metabolic disorders (4 sources)Body mass index (BMI) 40.0-44.9, adult; Translations: [Class 3 severe obesity due to excess calories with serious comorbidity and body mass index (BMI) of 40.0 to 44.9 in adult]Onset: 194039-73-5849PctbebiBuuao upper respiratory infections (2 sources)Recurrent sinusitis; Translations: [Chronic sinusitis, unspecified] 45-86-5860RfywiusIrgrcuil codes; unclassified (20 sources)Obstructive sleep apnea syndrome; Translations: [Obstructive sleep apnea (adult) (pediatric)]Onset: 021765-40-9232QimvyznTetgrueb codes; unclassified (1 source)Obstructive sleep apnea (adult) (pediatric); Translations: [MAREK (obstructive sleep apnea)]Onset: 16-11-8078BxvjtcqLqkfaxvz codes; unclassified (2 sources)History of craniotomy; Translations: [Other specified postprocedural states]36-22-2619HhrhnpehIuyfeybk codes; unclassified (1 source)Postprocedural state finding; Translations: [Other specified postprocedural states]81-32-8327XxpbzugmLxld and subcutaneous tissue infections (20 sources)Cellulitis of forearm; Translations: [Cellulitis of unspecified part of limb]57-35-4268SmngczymHstreyixzhu; intervertebral disc disorders; other back problems (1 source)Radiculopathy, thoracic region; Translations: [Radiculopathy, thoracic region]Onset: 28-04-0442JyodeenwAeiwbuu and strains (10 sources)Strain of muscle, fascia and tendon of other parts of biceps, right arm, initial encounter; Translations: [Strain of other muscles, fascia and tendons at shoulder and upper arm level, left arm, initial encounter]Onset: 06-05-2021 Resolved: 06-03-7585XhfkithuApxwkox disorders (20 sources)Hypothyroidism; Translations: [Hypothyroidism, unspecified]Onset: 091293-16-1605UottxzpBwrlbjdnarsy (1 source)Class 3 severe obesity due to [...] sources)Bilateral myopia of eyes; Translations: [Myopia, bilateral]Onset: 546551-57-8683YcwgydooInjbflhofj and other anemia (1 source)Iron deficiency anemia, unspecified; Translations: [Iron deficiency anemia, unspecified]Onset: 04-70-5179CwcyalifPkxs disorders (20 sources)Depressive disorder; Translations: [Depression] Resolved: 181534-47-4377BmxfkasFzoijuhcr of unspecified nature or uncertain behavior (17 sources)Neoplasm of brain; Translations: [Neoplasm of unspecified behavior of unspecified site]Onset: 02-21-2025 Resolved: 749760-05-5916DhoxgzkoTskgw aftercare (1 source)Encounter for follow-up examination after completed treatment for conditions other than malignant neoplasm; Translations: [Postop check]Onset: 37-61-7504ZkmderayOzast aftercare (1 source)Encounter for therapeutic drug level monitoring; Translations: [Encounter for medication monitoring]Onset: 85-76-5485XmvamdbuTzxas connective tissue disease (1 source)Enthesopathy, unspecified; Translations: [Tendonitis M77.9]Onset: 06-05-2021 Resolved: 53-11-2211FksuoqaaZjpqx connective tissue disease (2 sources)Radial styloid tenosynovitis [de Quervain]; Translations: [De Quervain's tenosynovitis, right M65.4]Onset: 06-05-2021 Resolved: 54-48-8782UgvdguhpOmuen connective tissue disease (1 source)Synovitis and tenosynovitis, unspecified; Translations: [Tenosynovitis M65.9]Onset: 06-05-2021 Resolved: 99-68-6882VmdzshlbBgqrq connective tissue disease (20 sources)Fibromyalgia; Translations: [Fibromyalgia]Onset: 05-45-5395Epjlmwbu Other connective tissue disease (1 source)Fibromyalgia; Translations: [Fibromyalgia]Onset: 51-45-6030Xqkijyct Other diseases of kidney and ureters (1 source)Disorder of kidney and ureter, unspecified; Translations: [Disorder of kidney and ureter, unspecified]Onset: 16-90-2197HeypkwffTjylt gastrointestinal disorders (11 sources)Abdominal bloating; Translations: [Abdominal distension (gaseous)] Onset: 413606-60-3802BmjxbtziXepwn lower respiratory disease (13 sources)Rib pain; Translations: [Pleurodynia]Onset: 625250-34-5009 EpisodicOther nervous system disorders (16 sources)Cerebral edema; Translations: [Cerebral edema]Onset: 02-21-2025 Resolved: 793738-31-6593QmyqhogEydvj nervous system disorders (16 sources)Postoperative pain ; Translations: [Other acute postprocedural pain] Onset: 02-22-2025 Resolved: 102010-20-1763AumjhhjfIjlgh non-traumatic joint disorders (20 sources)Pain in left shoulder; Translations: [Acute pain of left shoulder] Onset: 01-20-2022 Resolved: 10-13-6530DxlibpwaMdxnt non-traumatic joint disorders (19 sources)Pain in right wrist; Translations: [Pain in joint, forearm]Onset: 01-24-2022 Resolved: 66-09-0938IzokxycxSnjzp screening for suspected conditions (not mental disorders or infectious disease) (4 sources)Encounter for screening for dental disorders; Translations: [Encounter for screening mammogram for malignant neoplasm of breast]Onset: 037096-13-2552SzuhgiceJzudevew codes; unclassified (7 sources)Other specified postprocedural states; Translations: [S/P craniotomy] Onset: 11-20-2021 Resolved: 11-41-5734LjndyisuVabxsbhi codes; unclassified (16 sources)At risk of epileptic fits; Translations: [Other specified personal risk factors, not elsewhere classified]Onset: 02-21-2025 Resolved: 951064-39-1264BxxyjxhlGipxwyyxfbxx (1 source)Patient encounter yndrjr13-89-0875Ndlfqzoedcmf (1 source)pa (chief complaint)Onset: 06-27-2025 Results Test NameValueInterpretationReference RangeFacilityECH echo transthoracicon 34-81-7660PNZ echo transthoracicBLANCHARD VALLEY [facility] [place] [address] [place] [address] Echocardiogram Signed Patient: Kourtney Novak MR#: [id number] : 1975 Acct:[id number] Age/Sex: 49 / F ADM Date: 07/17/25 Loc: Room: Type: [facility] Attending Dr: Jesus Gonzalez MD Ordering Provider: [...] [id number] Signed By: Kierra Waldrop MD 07/17/25 1505[facility] CentralX-ray reportOrdered By: George Gray on 46-89-0732Cwmmy reportBLANCHARD VALLEY [facility] [address] [address] XRay Report Signed Patient: Kourtney Novak MR#: [id number] : 1975 Acct:[id number] Age/Sex: 49 / F ADM Date: 5 Loc: [facility] Room: Type: [facility] Attending Dr: Elyssa Gomes MD Copies to: Elyssa Gomes MD~ Ordering Provider: Elysas Gomes MD Date of Service: 07/12/25 XR/XR [...] 07/12/2025 4:59 PM Dictation Location: [place] [address] Transcribed By: [facility] 07/12/251658 Dictated By: George Gray DO 07/12/251654 Signed By: 07/12/251658 [facility] min 3V*on 35-85-4944ZY wrist RT min 3V*[facility] [address] [address] XRay Report Signed Patient: Kourtney Novak MR#: [id number] : 1975 Acct:[id number] Age/Sex: 49 / F ADM Date: 07/12/25 Loc: [facility] Room: Type: [facility] CLI Attending Dr: Elyssa Gomes MD Copies [...] 07/12/2025 4:59 PM Dictation Location: [place] [address] Transcribed By: [facility] 07/12/251658 Dictated By: George Gray DO 07/12/251654 Signed By: 07/12/251658[facility] Physician GroupSAINT [facility] Auto Differential panel (Bld)on 94-65-8590Hiqunbwvy (Bld) [#/Vol]0.1 10*3/uLNOMS HealthcareBasophils/100 WBC (Bld)1 %Not Estab.NOMS HealthcareEosinophils (Bld) [#/Vol]0.0 10*3/uLNOMS HealthcareEosinophils/100 WBC (Bld)0 %Not Estab.NOM HealthcareErythrocyte distribution width (RBC) [Ratio]13.3 %11.7 - 15.4 %NOMS HealthcareHematocrit (Bld) [Volume fraction]38.7 %34.0 - 46.6 %NOM HealthcareHemoglobin (Bld) [Mass/Vol]12.7 g/dL11.1 - 15.9 g/dLNOMD HealthcareImmature granulocytes (Bld) [#/Vol]0.1 10*3/uLNOMS HealthcareImmature granulocytes/100 WBC (Bld)1 %Not Estab.NOM HealthcareInterpretation and review of laboratory resultsAbnormalNOMD HealthcareLymphocytes (Bld) [#/Vol]1.8 10*3/uLNOMS HealthcareLymphocytes/100 WBC (Bld)19 %Not Estab.NOMMetropolitan Saint Louis Psychiatric CenterH (RBC) [Entitic mass]28.6 pg26.6 - 33.0 pgNOMD HealthcareHC (RBC) [Mass/Vol]32.8 g/dL31.5 - 35.7 g/dLNOMD Healthcare MCV (RBC) [Entitic vol]87 fL79 - 97 fLNOMD HealthcareMonocytes (Bld) [#/Vol]0.6 10*3/uLNOMS HealthcareMonocytes/100 WBC (Bld)6 %Not Estab.[facility] Neutrophils (Bld) [#/Vol]7.2 10*3/uLHighNOMS HealthcareNeutrophils/100 WBC (Bld) 73 %Not Estab.NOM HealthcarePlatelets (Bld) [#/Vol]514 10*3/uLHighNOMS HealthcareRBC (Bld) [#/Vol]4.44 10*6/uLNOMS HealthcareWBC (Bld) [#/Vol]9.7 10*3/uLNOMS HealthcareHIV-2 antigenon 02-60-9646YZZ 1+2 Ab+HIV1 p24 Ag IA Ql Non-ReactiveNon ReactiveNOMD HealthcareComment on above:HIV-1/HIV-2 antibodies and HIV-1 p24 antigen were NOT detected. There is no laboratory evidence of HIV infection. HIV Negative IgAon 41-15-2247VsM [Mass/Vol]232 mg/dL87 - 352 mg/dLNOMD HealthcareIgGon 12-14-7627GjV [Mass/Vol]594 mg/dL586 - 1602 mg/dLNOMD HealthcareIgMon 07-11-2025 IgM [Mass/Vol]108 mg/dL26 - 217 mg/dLSaint Luke's North Hospital–Barry RoadNo Panel Informationon 87-19-2251Cotfejczg at: [address] [place] [address] [id number] Billing Manager: Maxim Daniel PhD, Phone: [id number] Magnetic resonance imaging reportOrdered By: Perry Milton on 27-63-4612Ujgii reportBLANCHARD [facility] [place] [address] [place], [place] [address] MRI Report Signed Patient: Kourtney Novak MR#: [id number] : 1975 Acct:[id number] Age/Sex: 49 / F ADM Date: 5 Loc: MR Room: Type: [facility] CLI Attending Dr: Chantal LAMBERT Copies to: FAUSTO Salvador~ Ordering Provider: FAUSTO Salvador Date of Service: 06/27/25 MR/MR thoracic spine wo con: M54.14 ([id number]) XR/XR pre/post mri xray: M54.14 MR thoracic [...] Milton M.D. 06/27/2025 11:26 PM Dictation Location: [place] [address] Transcribed By: [facility] 06/27/252325 Dictated By: Perry Milton II, MD 06/27/252320 Signed By: 06/27/252325 [facility] Work Phone: xr pre/post mri xrayon 67-30-6263MX pre/post mri xray [facility] [place] [address] MRI Report Signed Patient: Kourtney Novka MR#: [id number] : 1975 Acct:[id number] Age/Sex: 49 / F ADM Date: 06/27/25 Loc: Room: Type: [facility] Attending Dr: Chantal LAMBERT Copies to: FAUSTO Salvador Ordering Provider: FAUSTO Salvador Date of Service: 06/27/25 MR/MR thoracic spine wo con: M54.14 ([id number]) XR/XR pre/post mri xray: M54.14 MR thoracic [...] Milton M.D. 06/27/2025 11:26 PM Dictation Location: [place] [address] Transcribed By: [facility] 06/27/25 8428 Dictated By: Perry Milton II, MD 06/27/252320 Signed By: 06/27/25 232[facility] Physician GroupCNOVleyla 26-16-8029UPUPKnvvmg Visit (ISSA) MARINOKOURTNEY ([id number]) 1975 F Date Time Provider Department 06/22/25 [...] light. Conjunctivae are noninjected. (more content not included)...NormalUniversity [facility]als [facility] 18-96-3353XP chest wo [facility] [place] [address] CT Scan Report Signed Patient: Kourtney Novak MR#: [id number] : 1975 Acct:[id number] Age/Sex: 49 / F ADM Date: 06/19/25 Loc: CT Room: Type: [facility] Attending Dr: Jesus Gonzalez MD Copies to: [...] Hoffmann M.D. 06/19/2025 11:19 PM Dictation Location: [place] [address] Transcribed By: GRACIE 06/19/252318 Dictated By: Lincoln Hoffmann MD 06/19/252314 Signed By: 06/19/252318[facility] Physician GroupUS thyroidon 18-32-5446TN [facility] [place] [address] [place] [address] Ultrasound Report Signed Patient: Kourtney Novak MR#: [id number] : 1975 Acct:[id number] Age/Sex: 49 / F ADM Date: 06/13/25 Loc: Room: Type: [facility] Attending Dr: Jesus Gonzalez MD Ordering Provider: [...] Gray M.D. 06/13/2025 10:29 PM Dictation Location: [place] [address] Tech: Tana Chahal Transcribed By: GRACIE 06/13/252228 Dictated By: George Gray DO 06/13/252225 Signed By: 06/13/252228[facility] Physician GroupXR Ribs Views and Chest PAon [...] fracture. ELECTRONICALLY SIGNED BY: Sylvester Triplett MD [facility] RoadXR Ribs Views and Chest PAOrdered By: Sylvester Triplett on 90-65-8446GOZPSaint [facility]'s [facility] Road Work Phone: ecg 12 lead ECGon 57-05-1171QCT 12 lead ECGBLANCHARD VALLEY [facility] [place] [address] [place] [address] Electrocardiograph Report Signed Patient: Kourtney Novak MR#: [id number] : 1975 Acct:[id number] Age/Sex: 49 / F ADM Date: 06/05/25 Loc: ER Room: Type: [facility] ER Attending Dr: Ordering Provider: Mayda [...] was found Confirmed by ALESSIA ECHEVERRIA MD ([id number]) on 06/07/2025 4:43:01 AM Referred By: Electronically Signed By: ALESSIA ECHEVERRIA MD Transcribed By: MUS [place] [address] [place] [address] Physician GroupX-ray reportOrdered By: Lincoln Hoffmann on 71-30-4508Prwps reportBLANCHARD VALLEY [facility] [place] [address] [place] [address] XRay Report Signed Patient: Kourtney Novak MR#: [id number] : 1975 Acct:[id number] Age/Sex: 49 / F ADM Date: 5 Loc: ER Room: Type: [facility] ER Attending Dr: Copies to: Mayda [...] Hoffmann M.D. 06/05/2025 9:52 PM Dictation Location: [facility] Transcribed By: [facility] 06/05/252151 Dictated By: Lincoln Hoffmann MD 06/05/252147 Signed By: 06/05/252151 [facility] Work Phone: XR RIBS 2 VIEWS RIGHT WITH CHEST ANTEROPOSTERIORon 15-18-1686JM RIBS 2 VIEWS RIGHT WITH CHEST ANTEROPOSTERIOREXAMINATION/TECHNIQUE: [...] HernándezNot AvailableXR Ribs Views and Chest PAon 81-14-5588Qhklbmifm Study observation (narrative)[facility]OMS HealthcareXR ribs RT min 3V w CXR1V*on 29-21-2712FY ribs RT min 3V w CXR1V*[facility] [place] [address] [place] [address] XRay Report Signed Patient: Kourtney Novak MR#: [id number] : 1975 Acct:[id number] Age/Sex: 49 / F ADM Date: 06/05/25 Loc: ER Room: Type: [facility] ER Attending Dr: Copies to: Mayda [...] By: Lincoln Hoffmann MD 06/05/252147 Signed By: 06/05/252151[facility] Physician GroupX-ray reportOrdered By: Perry Milton on 13-75-7572Gxisl reportBLANCHARD VALLEY [facility] [address] [address] XRay Report Signed Patient: Kourtney Novak MR#: [id number] : 1975 Acct:[id number] Age/Sex: 49 / F ADM Date: 5 Loc: [facility] Room: Type: [facility] Attending Dr: Krishan Nuñez DO Copies to: [...] Milton II, MD 05/30/251999 Signed By: 05/30/252001 [facility] Work Phone: XR shoulder RT min 2V*on 30-26-6914MB shoulder RT min 2V*[facility] [address] [address] XRay Report Signed Patient: Kourtney Novak MR#: [id number] : 1975 Acct:[id number] Age/Sex: 49 / F ADM Date: 05/30/25 Loc: [facility] Room: Type: [facility] Attending Dr: Krishan Nuñez DO Copies to: [...] Milton M.D. 05/30/2025 8:02 PM Dictation Location: [place] [address] Transcribed By: [facility] 05/30/252001 Dictated By: Perry Milton II, MD 05/30/251999 Signed By: 05/30/25 [facility]No[facility] Physician AthiaG5A with Estimated Average Gluon 07-08-7794Gbldeem [Mass/Vol]117 mg/dLBaptist Health [facility] Physician GroupComment on above:Order Comment: FASTING.JKWRyuri Comment: PERFORMED BY: [facility] [address] [place] [address] PATHOLOGIST ENAMEL PULVERIZER BERNARDINO HAMILTON M.D.Performed By: #### LIPID, [id number], TSH3, T3F, FE PRO, [id number], T4T, MG, A1C WTH eA, CBC, PHOS #### [facility] [address] [place] [address] #### INSULIN #### [facility] ,Alanine aminotransferase [Enzymatic activity/volume] in Serum or PlasmaOrdered By: Jesus Gonzalez on 28-94-2061IKH [Catalytic activity/Vol]17 U/LNormal7-52 [facility] HospitalComment on above:Performed By: #### LIPID, [id number], TSH3, T3F, FE PRO, RWSW74ZLY, T4T, MG, A1C WTH eA, CBC, PHOS #### [facility] [address] [place] [address] [place] #### INSULIN #### [facility] ,Albumin [Mass/volume] in Serum or Plasma by Bromocresol green (BCG) dye binding methoOrdered By: Jesus Gonzalez on 04-25-1462Ydwqrvj BCG dye [Mass/Vol]4.2 g/dL 3.5-5.7FFostoria City HospitalAlkaline phosphatase [Enzymatic activity/volume] in Serum or PlasmaOrdered By: Jesus Gonzalez on 83-52-7062XLM [Catalytic activity/Vol]46 U/GSsuqhr84-972TmbtkbdilMercy Health [facility] Hospital Comment on above:Result Comment: PERFORMED BY: [place] [address] PATHOLOGIST ENAMEL PULVERIZER BERNARDINO HAMILTON M.D.Performed By: #### LIPID, [id number], TSH3, T3F, FE PRO, SNAE24ZBV, T4T, MG, A1C WTH eA, CBC, PHOS #### [facility] [address] [place] [address] #### INSULIN #### [facility] ,Aspartate aminotransferase [Enzymatic activity/volume] in Serum or Plasma Ordered By: Jesus Gonzalez on 95-19-4012WUX [Catalytic activity/Vol]12 U/QKml72-98 [facility] HospitalComment on above:Performed By: #### LIPID, [id number], TSH3, T3F, FE PRO, HMLR91ZCQ, T4T, MG, A1C WTH eA, CBC, PHOS #### [facility] [address] [place] [address] #### INSULIN #### [facility] ,Basophils [#/volume] in Blood by Automated countOrdered By: Jesus Gonzalez on 83-68-4486Zhxqeojcy (Bld) [#/Vol]0.1 10*3/uLNormal0.0-0.2FFostoria City HospitalComment on above:Order Comment: FASTING.JKWResult Comment: PERFORMED BY: [place] [address] PATHOLOGIST ENAMEL PULVERIZER BERNARDINO HAMILTON M.D.Performed By: #### LIPID, [id number], TSH3, T3F, FE PRO, [id number], T4T, MG, A1C WTH eA, CBC, PHOS #### [address] #### INSULIN #### [facility] ,Basophils/100 leukocytes in Blood by Automated countOrdered By: Jesus Gonzalez on 02-71-0297Zxgxtzqas/100 WBC (Bld)0.7 %Normal.[facility] Comment on above:Order Comment: FASTING.JKWPerformed By: #### LIPID, [id number], TSH3, T3F, FE PRO, [id number], T4T, MG, A1C WTH eA, CBC, PHOS #### [address] #### INSULIN #### [facility] ,Bilirubin.total [Mass/volume] in Serum or PlasmaOrdered By: Jesus Gonzalez on 80-88-5306Fksxfshbd [Mass/Vol]0.3 mg/dLNormal0.3-1.0[facility] HospitalComment on above:Performed By: #### LIPID, [id number], TSH3, T3F, FE PRO, [id number], T4T, MG, A1C WTH eA, CBC, PHOS #### [facility] [address] [place] [address] [place] #### INSULIN #### [facility] ,Blood estimated average glucose determination by estimation from glycated hemoglobinOrdered By: Jesus Carlos on 86-14-5651Oheuvkt glucose Estimated from glycated hemoglobin (Bld) [Mass/Vol]117 mg/dLMercy Health Urbana Hospital Calcium [Mass/volume] in Serum or PlasmaOrdered By: Jesus Gonzalez on 05-26-2025 Calcium [Mass/Vol]9.1 mg/dLNormal8.6-10.3FFostoria City Hospital Comment on above:Performed By: #### LIPID, [id number], TSH3, T3F, FE PRO, SHDI39VOQ, T4T, MG, A1C WTH eA, CBC, PHOS #### [place] [address] [place] #### INSULIN #### [facility] ,Carbon dioxide, total [Moles/volume] in Serum or PlasmaOrdered By: Jesus Gonzalez on 07-61-2063MO1 [Moles/Vol]26.4 mmol/FGctxlr07.0-31.0[facility] HospitalComment on above:Performed By: #### LIPID, [id number], TSH3, T3F, FE PRO, [id number], T4T, MG, A1C WTH eA, CBC, PHOS #### [facility] [address] [place] [address] [place] #### INSULIN #### [facility] ,Chloride [Moles/volume] in Serum or PlasmaOrdered By: Jesus Gonzalez on 05-26-2025 Chloride [Moles/Vol]103 mmol/DZsaehg85-743QkqrzalwxMercy Health [facility] Hospital Comment on above:Performed By: #### LIPID, [id number], TSH3, T3F, FE PRO, SQCY84CGM, T4T, MG, A1C WTH eA, CBC, PHOS #### [place] [address] [place] #### INSULIN #### [facility] ,Cholesterol [Mass/volume] in Serum or PlasmaOrdered By: Jesus Gonzalez on 83-04-1989Kdmkbwoglbx [Mass/Vol]206 mg/dYJpdq341-166NvdcepketMercy Health Urbana HospitalComment on above:Chol less than 200 mg/dl low riskChol 201-239 mg/dl borderline riskChol 240 mg/dl and greater high riskOrder Comment: FASTING.JKW Result Comment: Chol less than 200 mg/dl low risk Chol 201-239 mg/dl borderline risk Chol 240 mg/dl and greater high riskPerformed By: #### LIPID, [id number], TSH3, T3F, FE PRO, [id number], T4T, MG, A1C WTH eA, CBC, PHOS #### [facility] [address] [place] [address] [place] #### INSULIN #### [facility] ,Cholesterol in HDL [Mass/volume] in Serum or PlasmaOrdered By: Jesus Carlos on 49-60-9348Ebjtgxojlzg in HDL [Mass/Vol]67 mg/eVWgclch47-77CpnswrbfuMercy Health Urbana HospitalComment on above:HDL CHOL ATP-III CLASSIFICATION Cardiovascular RiskHDL > or equal to 60 mg/dL LOWHDL < 40 mg/dL HIGHOrder Comment: FASTING.JKW Result Comment: HDL CHOL ATP-III CLASSIFICATION Cardiovascular Risk HDL > or equal to 60 mg/dL LOW HDL < 40 mg/dL HIGHPerformed By: #### LIPID, [id number], TSH3, T3F, FE PRO, [id number], T4T, MG, A1C WTH eA, CBC, PHOS #### [facility] [address] [place] [address] [place] #### INSULIN #### [facility] ,Cholesterol in LDL Calc [Mass/Vol]Ordered By: Jesus Carlos on 05-26-2025 Cholesterol in LDL [Mass/Vol]91 mg/dL0-100[facility] Comment on above:LDL ATP III CLASSIFICATIONLDL less than 100 mg/dL OptimalLDL 100-129 mg/dL Near or above xjeyfbiRTD650-651 mg/dL Borderline highLDL 160-189 mg/dL HighLDL greater than 189 mg/dL Very highCholesterol in VLDL Calc [Mass/Vol]Ordered By: Jesus Gonzalez on 54-27-5251Tqhoiphyaqj in VLDL [Mass/Vol]47 mg/dLMercy Health Urbana HospitalComplete Blood Count Auto Diffon 40-95-6021Ivfg Corpuscular HGB Conc33.0 g/pZGdechb41.0-35.0The [facility] Physician GroupComment on above:Order Comment: FASTING.JKWPerformed By: #### LIPID, [id number], TSH3, T3F, FE PRO, [id number], T4T, MG, A1C WTH eA, CBC, PHOS #### [facility] [address] [place] [address] #### INSULIN #### [facility] ,NRBC%0.1 /100{WBC}Normal0-0.5The [facility] Physician GroupComment on above: Order Comment: FASTING.JKWPerformed By: #### LIPID, [id number], TSH3, T3F, FE PRO, [id number], T4T, MG, A1C WTH eA, CBC, PHOS #### [facility] [address] [place] [address] #### INSULIN #### [facility] ,White Blood Count8.3 [CFU]/mLNormal3.8-11.6The [facility] Physician GroupComment on above:Order Comment: FASTING.JKWPerformed By: #### LIPID, [id number], TSH3, T3F, FE PRO, [id number], T4T, MG, A1C WTH eA, CBC, PHOS #### [facility] [address] [place] [address] [place] #### INSULIN #### [facility] ,Comprehensive Metabolic Panelon 80-41-6746Qccrjto [Mass/Vol]4.2 g/dLNormal 3.5-5.7The [facility] Physician GroupComment on above:Performed By: #### LIPID, [id number], TSH3, T3F, FE PRO, [id number], T4T, MG, A1C WTH eA, CBC, PHOS #### [place] [address] [place] #### INSULIN #### [facility] ,GFR/1.73 sq M.predicted MDRD (S/P/Bld) [Vol rate/Area]mL/min/{1.73_m2}NormalThe [facility] Health Physician GroupComment on above:Performed By: #### LIPID, [id number], TSH3, T3F, FE PRO, [id number], T4T, MG, A1C WTH eA, CBC, PHOS #### [place] [address] [place] #### INSULIN #### [facility] ,Creatinine [Mass/volume] in Serum or PlasmaOrdered By: Jesus Gonzalez on 92-28-4652Yislzapnhl [Mass/Vol]0.85 mg/dLNormal0.60-1.20[facility] HospitalComment on above:Performed By: #### LIPID, [id number], TSH3, T3F, FE PRO, [id number], T4T, MG, A1C WTH eA, CBC, PHOS #### [address] #### INSULIN #### [facility] ,Eosinophils [#/volume] in Blood by Automated countOrdered By: Jesus Gonzalez on 49-95-6583Ccdhudlisxg (Bld) [#/Vol]0.2 10*3/uLNormal0.0-0.45[facility] HospitalComment on above:Order Comment: FASTING.JKWPerformed By: #### LIPID, [id number], TSH3, T3F, FE PRO, [id number], T4T, MG, A1C WTH eA, CBC, PHOS #### [place] [address] [place] #### INSULIN #### [facility] ,Eosinophils/100 leukocytes in Blood by Automated countOrdered By: Jesus Smithpiedad on 83-58-4574Uzdmngarotv/100 WBC (Bld)3.0 %Normal.[facility] HospitalComment on above:Order Comment: FASTING.JKWPerformed By: #### LIPID, [id number], TSH3, T3F, FE PRO, [id number], T4T, MG, A1C WTH eA, CBC, PHOS #### [facility] [address] [place] [address] #### INSULIN #### [facility] ,Erythrocyte distribution width [Ratio] by Automated countOrdered By: Jesus Carlos on 14-74-9335Adfqnfubdvz distribution width (RBC) [Ratio]13.5 %Normal 11.9-15.3FFostoria City HospitalComment on above:Order Comment: FASTING.JKWPerformed By: #### LIPID, [id number], TSH3, T3F, FE PRO, [id number], T4T, MG, A1C WTH eA, CBC, PHOS #### [facility] [address] [place] [address] #### INSULIN #### [facility] ,Erythrocytes [#/volume] in Blood by Automated countOrdered By: Jesus Carlos on 40-84-1475IRO (Bld) [#/Vol]4.27 10*6/uLNormal3.60-5.00[facility] HospitalComment on above:Order Comment: FASTING.JKWPerformed By: #### LIPID, [id number], TSH3, T3F, FE PRO, [id number], T4T, MG, A1C WTH eA, CBC, PHOS #### [facility] [address] [place] [address] [place] #### INSULIN #### [facility] ,FE PROon 05-26-2025% Iron Bxufuaeufa44.2 %Det26-74Ryt [facility] Comment on above:Order Comment: FASTING.JKWPerformed By: #### LIPID, [id number], TSH3, T3F, FE PRO, [id number], T4T, MG, A1C WTH eA, CBC, PHOS #### [facility] [address] [place] [address] [place] #### INSULIN #### [facility] ,Total Iron Binding Osidnthj241 ug/tEEgqews175-436Cko [facility] Comment on above:Order Comment: FASTING.JKWPerformed By: #### LIPID, [id number], TSH3, T3F, FE PRO, [id number], T4T, MG, A1C WTH eA, CBC, PHOS #### [facility] [address] [place] [address] [place] #### INSULIN #### [facility] ,Ferritin [Mass/volume] in Serum or PlasmaOrdered By: Jesus Gonzalez on 05-26-2025 Ferritin [Mass/Vol]8.1 ng/mLLow11.0-306.8[facility] Comment on above:Order Comment: FASTING.JKWPerformed By: #### LIPID, [id number], TSH3, T3F, FE PRO, [id number], T4T, MG, A1C WTH eA, CBC, PHOS #### [place] [address] [place] #### INSULIN #### [facility] ,Folate [Mass/volume] in Serum or PlasmaOrdered By: Jesus Gonzalez on 05-26-2025 Folate [Mass/Vol]30.0 ng/mL>5.9[facility] HospitalComment on above:Folate reference range: >5.9 ng/mlThe WHO technical consultation on folate and vitamin f98nwronnhejsnf has determined that folate concentrations lessthan 4 ng/ml are considered deficient.Glomerular filtration rate [Volume Rate/Area] in Serum, Plasma or Blood by CreatinineOrdered By: Jesus Gonzalez on 05-26-2025 Glomerular filtration rate [Volume Rate/Area] in Serum, Plasma or Blood by Creatinine> 60.0 mL/MinMercy Health Urbana HospitalGlucose [Mass/volume] in Serum or PlasmaOrdered By: Jesus Carlos on 45-37-6722Cfwfpet [Mass/Vol]88 mg/dL Ytwpsi25-038YiepbitrzMercy Health Urbana HospitalComment on above:ADA recommended reference rangeRandom Glucose Reference [...] ADA recommended reference rangePerformed By: #### LIPID, [id number], TSH3, T3F, FE PRO, JFFN37SBB, T4T, MG, A1C WTH eA, CBC, PHOS #### [facility] [address] [place] [address] #### INSULIN #### [facility] ,Hematocrit [Volume Fraction] of Blood by Automated countOrdered By: Jesus Gonzalez on 69-11-7636Nnmfxvxtwp (Bld) [Volume fraction]37.8 %Ujatms58.0-46.4FFostoria City HospitalComment on above:Order Comment: FASTING.JKWPerformed By: #### LIPID, [id number], TSH3, T3F, FE PRO, WTZE79VTG, T4T, MG, A1C WTH eA, CBC, PHOS #### [facility] [address] [place] [address] [place] #### INSULIN #### [facility] ,Hemoglobin A1c/Hemoglobin.total in BloodOrdered By: Jesus Gonzalez on 05-26-2025 HbA1c (Bld) [Mass fraction]5.7 %High4.3-5.6FFostoria City Hospital Comment on above:Increased risk for diabetes: 5.7 - 6.4diabetes: >6.4glycemic control for adults with diabetes: <7.0Order Comment: FASTING.JKWResult Comment: Increased risk for diabetes: 5.7 - 6.4 diabetes: >6.4 glycemic control for adults with diabetes: <7.0Performed By: #### LIPID, [id number], TSH3, T3F, FE PRO, OFOK75MEV, T4T, MG, A1C WTH eA, CBC, PHOS #### [address] #### INSULIN #### [facility] ,Hemoglobin [Mass/volume] in BloodOrdered By: Jesus Gonzalez on 05-26-2025 Hemoglobin (Bld) [Mass/Vol]12.5 g/wJJscome95.8-15.4FFostoria City HospitalComment on above:Order Comment: FASTING.JKWPerformed By: #### LIPID, [id number], TSH3, T3F, FE PRO, [id number], T4T, MG, A1C WTH eA, CBC, PHOS #### [address] #### INSULIN #### [facility] ,Insulinon 36-22-1613Vxdvhdm04.6 u[iU]/mLNormal2.6-24.9The [facility] Physician GroupComment on above:Order Comment: FASTING.[employer] Comment: Performed at: - Lab[address] [id number] Billing Manager: Maxim Daniel PhD, Phone: [phone] PERFORMED BY: [place] [address] PATHOLOGIST ENAMEL PULVERIZER BERNARDINO HAMILTON M.D.Performed By: #### LIPID, [id number], TSH3, T3F, FE PRO, [id number], T4T, MG, A1C WTH eA, CBC, PHOS #### [address] #### INSULIN #### [facility] ,Iron [Mass/volume] in Serum or PlasmaOrdered By: Jesus Gonzalez on 48-74-4705Nmih [Mass/Vol]45 ug/hPKhk58-214NeokwkvqqMercy Health Urbana HospitalComment on above: Order Comment: FASTING.JKWPerformed By: #### LIPID, [id number], TSH3, T3F, FE PRO, [id number], T4T, MG, A1C WTH eA, CBC, PHOS #### [facility] [address] [place] [address] [place] #### INSULIN #### [facility] ,Leukocytes [#/volume] corrected for nucleated erythrocytes in Blood by Automated counOrdered By: Jesus Gonzalez on 28-91-9378KPH corrected for nucl RBC Auto (Bld) [#/Vol]8.3 10*3/uL3.8-11.6FFostoria City HospitalLeukocytes [#/volume] in Blood by Automated countOrdered By: Jesus Gonzalez on 96-95-9147RBX (Bld) [#/Vol]8.3 10*3/uLNormal3.8-11.6FFostoria City HospitalComment on above:Order Comment: FASTING.JKWPerformed By: #### LIPID, [id number], TSH3, T3F, FE PRO, LUUT11OQB, T4T, MG, A1C WTH eA, CBC, PHOS #### [facility] [address] [place] [address] [place] #### INSULIN #### [facility] ,Lipid Panelon 92-83-6931MOC Cholesterol,Dgwnokhbpf22 mg/dLNormal0-100The [facility] Physician GroupComment on above:Order Comment: FASTING.JKWResult Comment: LDL ATP III CLASSIFICATION LDL less than 100 mg/dL Optimal LDL 100-129 mg/dL Near or above optimal LDL 130-159 mg/dL Borderline high LDL 160-189 mg/dL High LDL greater than 189 mg/dL Very highPerformed By: #### LIPID, [id number], TSH3, T3F, FE PRO, TOPF16IRS, T4T, MG, A1C WTH eA, CBC, PHOS #### [place] [address] [place] #### INSULIN #### [facility] ,Triglyceride w/Uwsdcv919 mg/dLHigh0-149[facility] Physician GroupComment on above:Order Comment: FASTING.JKWResult Comment: TRIG ATP III CLASSIFICATION TRIG less than 150 mg/dL Normal TRIG 150-199 mg/dL Borderline high TRIG 200-500 mg/dL High TRIG greater than 500 mg/dL Very high Standard traceable to the Center for Disease Conrtrol and Prevention (CDC) test method.Performed By: #### LIPID, [id number], TSH3, T3F, FE PRO, [id number], T4T, MG, A1C WTH eA, CBC, PHOS #### [address] #### INSULIN #### [facility] ,VLDL VPOZVKHHNTV01 mg/dLBaptist Health Baptist Hospital of Miami Physician GroupComment on above: Order Comment: FASTING.JKWPerformed By: #### LIPID, [id number], TSH3, T3F, FE PRO, [id number], T4T, MG, A1C WTH eA, CBC, PHOS #### [address] #### INSULIN #### [facility] ,Lymphocytes [#/volume] in Blood by Automated countOrdered By: Jesus Gonzalez on 24-50-7064Tzpiwfpoxnu (Bld) [#/Vol]2.9 10*3/uLNormal1.00-4.8[facility] HospitalComment on above:Order Comment: FASTING.JKWPerformed By: #### LIPID, [id number], TSH3, T3F, FE PRO, [id number], T4T, MG, A1C WTH eA, CBC, PHOS #### [place] [address] [place] #### INSULIN #### [facility] ,Lymphocytes/100 leukocytes in Blood by Automated countOrdered By: Jesus Gonzalez on 91-62-9589Tfbkevkdbnb/100 WBC (Bld)34.8 %Normal.[facility] HospitalComment on above:Order Comment: FASTING.JKWPerformed By: #### LIPID, [id number], TSH3, T3F, FE PRO, [id number], T4T, MG, A1C WTH eA, CBC, PHOS #### [facility] [address] [place] [address] [place] #### INSULIN #### [facility] ,MCH [Entitic mass] by Automated countOrdered By: Jesus Gonzalez on 12-66-5392JWJ (RBC) [Entitic mass]29.2 spNwjigz20.7-34.3FFostoria City Hospital Comment on above:Order Comment: FASTING.JKWPerformed By: #### LIPID, [id number], TSH3, T3F, FE PRO, [id number], T4T, MG, A1C WTH eA, CBC, PHOS #### [facility] [address] [place] [address] #### INSULIN #### [facility] ,MCHC Auto (RBC) [Mass/Vol]Ordered By: Jesus Gonzalez on 91-40-3920GWUP (RBC) [Mass/Vol]33.0 g/dL32.0-35.0[facility] HospitalMCV [Entitic volume] by Automated countOrdered By: Jesus Gonzalez on 12-96-9490QEI (RBC) [Entitic vol]88.5 uHBjvpqj51-890DkrszbimtMercy Health Urbana HospitalComment on above:Order Comment: FASTING.JKWPerformed By: #### LIPID, [id number], TSH3, T3F, FE PRO, [id number], T4T, MG, A1C WTH eA, CBC, PHOS #### [facility] [address] [place] [address] [place] #### INSULIN #### [facility] ,Magnesium [Mass/volume] in Serum or PlasmaOrdered By: Jesus Gonzalez on 05-26-2025 Magnesium [Mass/Vol]1.8 mg/dLLow1.9-2.7FFostoria City HospitalComment on above:Order Comment: FASTING.JKWPerformed By: #### LIPID, [id number], TSH3, T3F, FE PRO, [id number], T4T, MG, A1C WTH eA, CBC, PHOS #### [facility] [address] [place] [address] [place] #### INSULIN #### [facility] ,Monocytes [#/volume] in Blood by Automated countOrdered By: Jesus Gonzalez on 79-49-4593Imzihytev (Bld) [#/Vol]0.9 10*3/uLHigh0.0-0.8Mer[facility] Health Urbana HospitalComment on above:Order Comment: FASTING.JKWPerformed By: #### LIPID, [id number], TSH3, T3F, FE PRO, [id number], T4T, MG, A1C WTH eA, CBC, PHOS #### [address] #### INSULIN #### [facility] ,Monocytes/100 leukocytes in Blood by Automated countOrdered By: Jesus Gonzalez on 06-87-4965Myafexzbi/100 WBC (Bld)11.2 %Normal.[facility] Comment on above:Order Comment: FASTING.JKWPerformed By: #### LIPID, [id number], TSH3, T3F, FE PRO, [id number], T4T, MG, A1C WTH eA, CBC, PHOS #### [facility] [address] [place] [address] [place] #### INSULIN #### [facility] ,Neutrophils [#/volume] in Blood by Automated countOrdered By: Jesus Gonzalez on 89-12-0229Hyldwidowan (Bld) [#/Vol]4.2 10*3/uLNormal1.8-7.7FFostoria City HospitalComment on above:Order Comment: FASTING.JKWPerformed By: #### LIPID, [id number], TSH3, T3F, FE PRO, [id number], T4T, MG, A1C WTH eA, CBC, PHOS #### [facility] [address] [place] [address] [place] #### INSULIN #### [facility] ,Neutrophils/100 leukocytes in Blood by Automated countOrdered By: Jesus Gonzalez on 24-27-3409Xyghwlqsjdf/100 WBC (Bld)50.3 %Normal.[facility] Urbana HospitalComment on above:Order Comment: FASTING.JKWPerformed By: #### LIPID, [id number], TSH3, T3F, FE PRO, [id number], T4T, MG, A1C WTH eA, CBC, PHOS #### [facility] [address] [place] [address] [place] #### INSULIN #### [facility] ,No Panel InformationOrdered By: Jesus Gonzalez on 95-74-2420Jjfoncbh Creatinine Clearance (ChemN/[facility] Tiffin HospitalNucleated erythrocytes [Presence] in Blood by Automated countOrdered By: Jesus Gonzalez on 05-26-2025 Nucleated RBC Auto Ql (Bld)0.1 /100{WBC}0-0.5FFostoria City Hospital Phosphate [Mass/volume] in Serum or PlasmaOrdered By: Jesus Gonzalez on 05-26-2025 Phosphate [Mass/Vol]3.8 mg/dLNormal2.5-4.5FFostoria City Hospital Comment on above:Order Comment: FASTING.JKWPerformed By: #### LIPID, [id number], TSH3, T3F, FE PRO, [id number], T4T, MG, A1C WTH eA, CBC, PHOS #### [facility] [address] [place] [address] [place] #### INSULIN #### [facility] ,Platelet mean volume [Entitic volume] in Blood by Automated countOrdered By: Jesus Gonzalez on 44-71-8290Rtkbzvxk mean volume (Bld) [Entitic vol]8.3 fLNormal 6.3-10.7FFostoria City HospitalComment on above:Order Comment: FASTING.JKWPerformed By: #### LIPID, [id number], TSH3, T3F, FE PRO, [id number], T4T, MG, A1C WTH eA, CBC, PHOS #### [facility] [address] [place] [address] [place] #### INSULIN #### [facility] ,Platelets [#/volume] in Blood by Automated countOrdered By: Jesus Gonzalez on 46-00-2023Logmwevvo (Bld) [#/Vol]421 10*3/jWJzxips189-248TexdmfffsMercy Health Urbana HospitalComment on above:Order Comment: FASTING.JKWPerformed By: #### LIPID, [id number], TSH3, T3F, FE PRO, [id number], T4T, MG, A1C WTH eA, CBC, PHOS #### [address] #### INSULIN #### [facility] ,Potassium [Moles/volume] in Serum or PlasmaOrdered By: Jesus Gonzalez on 38-69-2229Hfdildyse [Moles/Vol]4.6 mmol/LNormal3.5-5.1FFostoria City HospitalComment on above:Performed By: #### LIPID, [id number], TSH3, T3F, FE PRO, [id number], T4T, MG, A1C WTH eA, CBC, PHOS #### [address] #### INSULIN #### [facility] ,Protein [Mass/volume] in Serum or PlasmaOrdered By: Jesus Gonzalez on 05-26-2025 Protein [Mass/Vol]6.5 g/dLNormal6.4-8.9Mer[facility] Urbana HospitalComment on above:Performed By: #### LIPID, [id number], TSH3, T3F, FE PRO, [id number], T4T, MG, A1C WTH eA, CBC, PHOS #### [place] [address] [place] #### INSULIN #### [facility] ,Serum globulin measurement by calculation (mass/volume)Ordered By: Jesus Gonzalez on 42-29-6262Flgeozvm (S) [Mass/Vol]2.3 g/dLNormGreen Cross HospitalComment on above:Performed By: #### LIPID, [id number], TSH3, T3F, FE PRO, [id number], T4T, MG, A1C WTH eA, CBC, PHOS #### [facility] [address] [place] [address] [place] #### INSULIN #### [facility] ,Serum or plasma albumin/globulin mass ratioOrdered By: Jesus Gonzalez on 24-97-1344Hcepwnz/Globulin [Mass ratio]1.8 {ratio}[facility]orrow County HospitalComment on above:Performed By: #### LIPID, [id number], TSH3, T3F, FE PRO, [id number], T4T, MG, A1C WTH eA, CBC, PHOS #### [place] [address] [place] #### INSULIN #### [facility] ,Serum or plasma anion gap determinationOrdered By: Jesus Gonzalez on 05-26-2025 Anion gap [Moles/Vol]13.2 mmol/LNormal6.0-15.0[facility] Comment on above:Performed By: #### LIPID, [id number], TSH3, T3F, FE PRO, [id number], T4T, MG, A1C WTH eA, CBC, PHOS #### [place] [address] [place] #### INSULIN #### [facility] ,Serum or plasma insulin measurement (units/volume)Ordered By: Jesus Gonzalez on 09-21-9512Xbcgylm Qn15.6 u[iU]/mL2.6-24.9[facility] Comment on above:Performed at: [facility] Lab[address] [id number] Director: Maxim Daniel PhD, Phone: [phone] or plasma iron binding capacity measurement (mass/volume)Ordered By: Jesus Gonzalez on 42-60-3597Fnju binding capacity [Mass/Vol]442 ug/nY636-959KgxrhgltfDunlap Memorial Hospitalerum or plasma iron saturation measurement (mass fraction)Ordered By: Jesus Gonzalez on 62-60-6742Tloe saturation [Mass fraction]10.2 %Fxb78-77 Dunlap Memorial Hospitalerum or plasma total cholesterol/high density lipoprotein (HDL) cholesterol mass ratOrdered By: Jesus Gonzalez on 05-26-2025 Cholesterol.total/Cholesterol in HDL [Mass ratio]3.1 {ratio}Normal<5.0Mer[facility] Urbana HospitalComment on above:Order Comment: FASTING.JKWPerformed By: #### LIPID, [id number], TSH3, T3F, FE PRO, TYHT43OER, T4T, MG, A1C WTH eA, CBC, PHOS #### [facility] [address] [place] [address] [place] #### INSULIN #### [facility] ,Sodium [Moles/volume] in Serum or PlasmaOrdered By: Jesus Gonzalez on 05-26-2025 Sodium [Moles/Vol]138 mmol/XJofvrp307-100YnyqbbrepMercy Health Urbana Hospital Comment on above:Performed By: #### LIPID, [id number], TSH3, T3F, FE PRO, [id number], T4T, MG, A1C WTH eA, CBC, PHOS #### [facility] [address] [place] [address] [place] #### INSULIN #### [facility] ,Thyrotropin [Units/volume] in Serum or PlasmaOrdered By: Jesus Gonzalez on 22-29-2448MRJ Qn4.15 m[IU]/LNormal0.45-5.33[facility] Comment on above:Order Comment: FASTING.JKWPerformed By: #### LIPID, [id number], TSH3, T3F, FE PRO, [id number], T4T, MG, A1C WTH eA, CBC, PHOS #### [facility] [address] [place] [address] #### INSULIN #### [facility] ,Thyroxine (T4) [Mass/volume] in Serum or PlasmaOrdered By: Jesus Gonzalez on 94-39-7694I2 [Mass/Vol]11.24 ug/dLNormal5.39-11.82Mer[facility] Urbana HospitalComment on above:Order Comment: FASTING.JKWPerformed By: #### LIPID, [id number], TSH3, T3F, FE PRO, [id number], T4T, MG, A1C WTH eA, CBC, PHOS #### [address] #### INSULIN #### [facility] ,Transferrin [Mass/volume] in Serum or PlasmaOrdered By: Jesus Carlos on 19-34-1784Aqykksvtfef [Mass/Vol]316 mg/kWZsloql419-207ZgsrxandrMercy Health Urbana HospitalComment on above:Order Comment: FASTING.JKWPerformed By: #### LIPID, [id number], TSH3, T3F, FE PRO, [id number], T4T, MG, A1C WTH eA, CBC, PHOS #### [address] #### INSULIN #### [facility] ,Triglyceride [Mass/volume] in Serum or PlasmaOrdered By: Jesus Carlos on 00-67-5142Jjomgkksaxmv [Mass/Vol]239 mg/dLHigh0-149Mer[facility] Health Urbana HospitalComment on above:TRIG ATP III CLASSIFICATIONTRIG less than 150 mg/dL NormalTRIG 150-199 mg/dL Borderline highTRIG 200-500 mg/dL High TRIG greater than 500 mg/dL Very highStandard traceable to the Center for Disease Conrtrol and Prevention (CDC) test method.Triiodothyronine (T3) Freeon 05-26-2025 Triiodothyronine (T3) Free3.72 pg/mLNormal2.50-3.90[facility] Comment on above:Order Comment: FASTING.JKWResult Comment: PERFORMED BY: [place] [address] PATHOLOGIST ENAMEL PULVERIZER BERNARDINO HAMILTON M.D.Performed By: #### LIPID, [id number], TSH3, T3F, FE PRO, VGFU78LQV, T4T, MG, A1C WTH eA, CBC, PHOS #### [address] #### INSULIN #### [facility] ,Triiodothyronine (T3) Free [Mass/volume] in Serum or PlasmaOrdered By: Jesus Gonzalez on 73-76-2871Pwil T3 [Mass/Vol]3.72 pg/mL2.50-3.90Mer[facility]rbana HospitalUrea nitrogen [Mass/volume] in Serum or PlasmaOrdered By: Jesus Gonzalez on 61-55-4836Khxo nitrogen [Mass/Vol]15 mg/dLNormal7-25Mer[facility]rbana HospitalComment on above:Performed By: #### LIPID, [id number], TSH3, T3F, FE PRO, [id number], T4T, MG, A1C WTH eA, CBC, PHOS #### [address] #### INSULIN #### [facility] ,Vit. B12/Folate Profileon 46-79-7812Cdgosr26.0 ng/mLNormal>5.9The [facility] Physician GroupComment on above:Order Comment: FASTING.[employer] Comment: Folate reference range: >5.9 ng/ml The WHO technical consultation on folate and vitamin b12 deficiencies has determined that folate concentrations less than 4 ng/ml are considered deficient.Performed By: #### LIPID, [id number], TSH3, T3F, FE PRO, [id number], T4T, MG, A1C WTH eA, CBC, PHOS #### [address] #### INSULIN #### [facility] ,Vitamin B12 ser/plasOrdered By: Jesus Gonzalez on 40-66-7247Armtmhutu (Vitamin B12) [Mass/Vol]484 pg/vDCruqsy691-132SeftrftjyMercy Health Urbana HospitalComment on above:Order Comment: FASTING.JKWPerformed By: #### LIPID, [id number], TSH3, T3F, FE PRO, VVJZ68MKL, T4T, MG, A1C WTH eA, CBC, PHOS #### [address] #### INSULIN #### [facility] ,Vitamin D 25 Hydroxy Totalon 34-96-7405Tgzeprm D 25 Hydroxy Total31.9 ng/mL Hxdmqg95-686Ewo [facility] Physician GroupComment on above:Order Comment: FASTING.JKWResult Comment: VITAMIN D STATUS 25(OH)VITAMIN D RANGE (ng/mL) Deficient <20 Insufficient 20 to <30 Sufficient 30 to 100 Reference: Anum Berry, Brynn APARICIO, et al. Evaluation,treatment, and prevention of vitamin D deficiency; an Endocrine Society clinical practice guideline. JCEM. 2010; 96(7):1911-30. PERFORMED BY: [place] [address] PATHOLOGIST ENAMEL PULVERIZER BERNARDINO HAMILTON M.D.Performed By: #### LIPID, [id number], TSH3, T3F, FE PRO, GXMQ26VLK, T4T, MG, A1C WTH eA, CBC, PHOS #### [address] #### INSULIN #### [facility] ,Vitamin D+Metabolites [Mass/volume] in Serum or PlasmaOrdered By: Jesus Smithpiedad on 39-29-3511Gdwshpm D+Metabolites [Mass/Vol]31.9 ng/pE10-725VyyygacobMercy Health Urbana HospitalComment on above:VITAMIN D STATUS 25(OH)VITAMIN D RANGE (ng/mL) Deficient <20 Insufficient 20 to <72Msmdjievpo14 to 100Reference: Anum Berry, Brynn APARICIO, et al. Evaluation,treatment, and prevention of vitamin D deficiency; an Endocrine Society clinical practice guideline. JCEM. 2010; 96(7):1911-30.LILIAOVon 63-76-8291HQKUOlehrs Visit (NSCAMN) KOURTNEY NOVAK ([id number]) 1975 F Date Time Provider Department 03/15/25 [...] No Does patient want to see a Manager Specialty? No (yes to any of above refer [...] and [facility] AND [facility] [place], [facility] CC: Patient Care Team: Jesus Gonzalez MD [...] changes. PLAN: - Send a picture in Qritiqrgonzales on Thursday. - Bactrim DS x 5 [...] mg tablet pioglitazone (A (more content not included)...[facility] 81-13-8491FNZEEmttgexfq (NSCAMN) KOURTNEY NOVAK ([id number]) 1975 F Date Time Provider Department 03/08/25 SHAKILA PHILLIPS [facility] During your visit today, we [...] 02/22/2025 Encounter Status:Closed by SHAKILA PHILLIPS on 03/08/25[facility] 84-76-3100ODGJMARUshdm Visit (NSCAMN) KOURTNEY NOVAK ([id number]) 1975 F Date Time Provider Department 03/06/25 10:30 AM SHAKILA PHILLIPS [facility] During your visit today, we [...] No Does patient want to see a Manager Specialty? No (yes to any of above refer [...] request and reach out to her through [employer] with a reply. Shakila Phillips RN, Aircraft Manager Allergies As of Date: 03/06/2025 (No Known [...] capsule Take 24 mcg (more content not included)...NormalCleveland Clinic Hillcrest HospitalPNon 46-50-6517GGWQDaxebvsfv (NSCAMN) KOURTNEY NOVAK ([id number]) 1975 F Date Time Provider Department 02/23/25 SHAKILA PHILLIPS [facility] During your visit today, we [...] Reviewed med list and sent patient a [employer] message for alternating Ibuprofen and Tylenol for headache/pain as needed Confirmed postop appointments Patient was made aware to reach out for questions/ concerns/updates. Shakila Phillips RN, Aircraft Manager Allergies As of Date: 02/23/2025 (No Known [...] 02/22/2025 Encounter Status:Closed by SHAKILA PHILLIPS on 02/23/25[facility] 66-75-4384JDVEIH HEALTHHNO ID: [id number] Author: ANNALISA ENRIQUEZ Chaplain Service: Spiritual Care Author Type: Account Executive Key Accounts Type: Allied Health Filed: 02/22/2025 15:39 Note Text: SPIRITUALCARE Spiritual Care Visit- Brief Note Name: Kourtney Novak Date: February 22, 2025 Notes: The entertainment centre manager met with the patient's family at the bedside, introducing himself and providing information about the availability of spiritual care services. The patient expressed gratitude for the visit but declined any support for the moment. Follow-up will be provided as circumstances allow. [place] [phone]. Account Executive Key Accounts services are available 06/04. SIGNATURE: Chaplain Hiro PATIENT NAME: Kourtney Novak DATE: February 22, 2025 TIME: 3:39 PM This is an electronically created document. IF PRINTED, PLEASE DO NOT REMOVE FROM THE CHART OR MODIFY PRINTED COPY.Normal [facility] 64-19-6476LJCZNOG ID: [id number] Author: ERIK PINEDA MD Service: Neurosurgery Author [...] M.D. - Office PCP: Jesus Gonzalez MD [phone] Treatment Team: Attending Provider: Erik Pineda MD [...] The patient was electively admitted to the [facility]. After being optimized for surgery by [...] The patient was then transferred up to [place] [address]/H060-36 hospital room for postoperative management. Patient was [...] Primary Emergency Contact: Christiano Saini Address: [address] [id number] [facility] Mobile Relation: Son Secondary Emergency Contact: Laith Saini Address: [address] Mobile Relation: Son ALLERGIES: ALLERGIES No Known Allergies HOME MEDICATIONS: Medication List START taking these medications acetaminophen 325 mg tablet Commonly known as: TYLENOL 2 tablets by ORAL/FEEDING TUBE rou (more content not included)...[facility] NTon 43-80-3379DNAUZTH NTHNO ID: [id number] Author: OLIVIA WOLFF, PT Service: Physical Therapy Author Type: Physical Therapist Type: Therapy (PT/OT/Speech/Resp) Filed: 02/22/2025 13:12 Note Text: PHYSICAL THERAPY MISSED VISIT SERVICE DATE: 02/22/2025 SERVICE TIME: 1140 ROOM: [place] [address] Patient not seen due to Declined to Participate. Pt denies concerns for home going, declines stair training before d/c. No further acute PT needs, all concerns addressed. PT to sign off. 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 Denies falls. Lives with adult [...] (ADL) TREATMENT INTERVENTIONS Evaluation, Self Snf Management (24568) Timed Code Treatment (minutes): 8 Skilled Treatment Time (minutes): 23 TRAINING AND EDUCATION PROVIDED Activity Adaptation/Compensatory Strategies, Benefits of In-Hospital Mobility, Disease Specific Education, Discharge Planning, Expected Functional Level, Functional Mobility Involving ADLs, Lower Extremity Dressing, Pain Management, Precautions/Restrictions, Role of Occupational Therapy, Standing Balance to Improve [place] with ADLs/Self-Care, Transfer - Sit to Stand, [...] Novak DATE: February 22, 2025 TIME: 11:36 AMNormalWayne HealthCare Main Campus 97-52-4145OCXPAU HEALTHHNO ID: [id number] Author: TIM ALTAMIRANO Student Service: Spiritual Care [...] FROM THE CHART OR MODIFY PRINTED COPY.Normal [facility] HospitalHNO ID: [id number] Author: TRIPP DALLAS RT(R) Service: Radiology Author Type: Ict Account Manager Type: Allied Health Filed: 02/21/2025 10:15 [...] PATIENT PRESENTS WITH AN IMPLANTABLE OR ATTACHED COUNTER CONTROL OPERATOR: No RADIOLOGY DEPARTMENT: MR; Exam(s) Completed: Head: Routine Brain. Lavender Administered: Yes PERIPHERAL IV DATA: Inpatient: see [facility] documentation SIGNED BY: RT Kenneth(R) February 21, 2025 9:22 AMNormalGood Samaritan Hospital metabolic 2000 panel on 21-52-4334Fcirh gap [Moles/Vol]13 mmol/LNormal8-15[facility] Comment on above:Order Comment: Specimen Type: BLOOD SPECIMENOrdering Facility: [facility] Address:[address] [place] [address] Performed By: #### 48307-0 ####[facility] LABCLIA [id number] [place] [address] [place] Calcium [Mass/Vol]8.8 mg/dLNormal8.5-10.2CUniversity Hospitals [facility] on above:Order Comment: Specimen Type: BLOOD SPECIMENOrdering Facility: [facility] Address:[address] [place], [place] [address]Performed By: #### 37907-8 ####[facility] LABCLIA [id number] [place] [address] [place] AMERICAChloride [Moles/Vol] 105 mmol/EMjyufa81-246OdxvvibtbOhio State University [facility] on above:Order Comment: Specimen Type: BLOOD SPECIMENOrdering Facility: [facility] Address:[address] [place], [place] [address]Performed By: #### 55983-2 ####[facility] [id number] [place] [address] [place] AMERICACO2 [Moles/Vol]20 mmol/DLod40-42 [facility] on above:Order Comment: Specimen Type: BLOOD SPECIMENOrdering Facility: [facility] Address:[address] [place], [place] [address]Performed By: #### 30526-0 ####[facility] [id number] [place] [address] [place] [facility] HOSPITALCreatinine [Mass/Vol]0.75 mg/dLNormal0.58-0.96[facility] Comment on above:Order Comment: Specimen Type: BLOOD SPECIMENOrdering Facility: [facility] Address:[address] [place] [address] Performed By: #### 71980-4 ####[facility] [id number] [place] [address] [place] Creatinine and Glomerular filtration rate.predicted panel (S/P/Bld)99 mL/min/1.73m???Normal>=60[facility] on above:Order Comment: Specimen Type: BLOOD SPECIMENOrdering Facility: [facility] Address:[address] [place], [place] [address]Result Comment: Estimated Glomerular Filtration Rate (eGFR) is [...] not accurately reflect actual GFR.Performed By: #### 38456-7 ####[facility] [id number] [place] [id number] [place] AMERICAGlucose [Mass/Vol]131 mg/dLHigh 74-99[facility] on above:Order Comment: Specimen Type: BLOOD SPECIMENOrdering Facility: [facility] Address:[address] [place] [id number] Comment: The [place] Diabetes Association (ADA) provides guidance for cutoff [...] Standards of Medical Care in Diabetes 2016, [place] Diabetes Association. Diabetes Care. 2016.39(Suppl 1).Performed By: #### 95855-0 ####[facility] LABIA [id number] [place] [address] [place] AMERICAPotassium [Moles/Vol]4.2 mmol/L Normal3.7-5.1CAccess Hospital DaytonComment on above:Order Comment: Specimen Type: BLOOD SPECIMENOrdering Facility: [facility] Address:[address] [place], [place] [address]Performed By: #### 35331-8 ####[facility] LABIA [id number] [place] [address] [place] AMERICASodium [Moles/Vol]138 mmol/TRqcjsd670-468PyucqoltqGreen Cross HospitalComment on above:Order Comment: Specimen Type: BLOOD SPECIMENOrdering Facility: [facility] Address:[address] [place], [place] [address]Performed By: #### 51692-5 ####[facility] LABIA [id number] [place] [address] [place] AMERICAUrea nitrogen [Mass/Vol]8 mg/dLNormal7-21[facility] Comment on above:Order Comment: Specimen Type: BLOOD SPECIMENOrdering Facility: [facility] Address:[address] [place] [address] Performed By: #### 98605-9 ####[facility] LABCLIA [id number] [place] [address] [place] CBC W Auto Differential panel (Bld)on 12-25-8885Wlvgejrzi (Bld) [#/Vol]10*3/uL Normal<0.11CUniversity Hospitals E[facility]ria [facility] on above:Order Comment: Specimen Type: BLOOD SPECIMENOrdering Facility: [facility] Address:[address] [place], [place] [address]Performed By: #### 25531-1 ####[facility] LABCLIA [id number] [place] [address] [place] AMERICABasophils/100 WBC (Bld)0.1 %NormalOhio State University Wex[facility] on above:Order Comment: Specimen Type: BLOOD SPECIMENOrdering Facility: [facility] Address:[address] [place], [place] [address]Performed By: #### 69269-5 ####[facility] LABCLIA [id number] [place] [address] [place] Differential cell count method Nom (Bld)AutoNormalClevelDavis Regional Medical Center Comment on above:Order Comment: Specimen Type: BLOOD SPECIMENOrdering Facility: [facility] Address:[address] [place] [address] Performed By: #### 94845-6 ####[facility] LABCLIA [id number] [place] [address] [place] Eosinophils (Bld) [#/Vol]10*3/uLNormal<0.46[facility] on above:Order Comment: Specimen Type: BLOOD SPECIMENOrdering Facility: [facility] Address:[address] [place], [place] [address]Performed By: #### 22084-3 ####[facility] LABCLIA [id number] [place] [address] [place] AMERICAEosinophils/100 WBC (Bld)0.0 %NormalOhio State University Wex[facility] Medical [facility] on above:Order Comment: Specimen Type: BLOOD SPECIMENOrdering Facility: [facility] Address:[address] [place], [place] [address]Performed By: #### 56429-2 ####[facility]FAIRHILLIA [id number] [place] [address] [place] AMERICAErythrocyte distribution width (RBC) [Ratio]13.2 %Vrurxh12.5-15.0[facility] on above: Order Comment: Specimen Type: BLOOD SPECIMENOrdering Facility: [facility] Address:[address] [place], [place] [address]Performed By: #### 54633- 8 ####[facility] [id number] [address], [place] [address] [place] AMERICAHematocrit (Bld) [Volume fraction]34.6 %Low36.0-46.0[facility] [facility] on above:Order Comment: Specimen Type: BLOOD SPECIMENOrdering Facility: [facility] Address:[address] [place], [place] [address]Performed By: #### 30880- 8 ####[facility] [id number] [address] STATES OF AMERICAHemoglobin (Bld) [Mass/Vol]11.2 g/dLLow11.5-15.5CUniversity Hospitals [facility] on above:Order Comment: Specimen Type: BLOOD SPECIMENOrdering Facility: [facility] Address:[address] [place], [place] [address]Performed By: #### 52459-5 ####[facility] [id number] [place] [address] [place] OF AMERICAImmature granulocytes (Bld) [#/Vol]0.05 10*3/uLNormal<0.10[facility] on above:Order Comment: Specimen Type: BLOOD SPECIMENOrdering Facility: [facility] Address:[address] [place], [place] [address]Performed By: #### 43578- 8 ####[facility] LABCLIA [id number] [place] [address] [place] OF AMERICAImmature granulocytes/100 WBC (Bld)0.4 %NormalOhio State University [facility] on above:Order Comment: Specimen Type: BLOOD SPECIMENOrdering Facility: [facility] Address:[address] [place], [place] [address]Performed By: #### 95668-3 ####[facility] LABIA [id number] [place] [address] [place] OF AMERICALymphocytes (Bld) [#/Vol]0.87 10*3/uLLow1.00-4.00[facility] on above:Order Comment: Specimen Type: BLOOD SPECIMENOrdering Facility: [facility] Address:[address] [place], [place] [address]Performed By: #### 52075-4 ####[facility] LABIA [id number] [place] [address] [place] OF AMERICALymphocytes/100 WBC (Bld)6.8 % NormalOhio State University [facility] on above:Order Comment: Specimen Type: BLOOD SPECIMENOrdering Facility: [facility] Address:[address] [place], [place] [address]Performed By: #### 55608-8 ####[facility] LABIA [id number] [place] [address] [place] OF AMERICAMC (RBC) [Entitic mass]29.7 loOukdms41.0-34.0[facility] on above:Order Comment: Specimen Type: BLOOD SPECIMENOrdering Facility: [facility] Address:[address] [place], [place] [address]Performed By: #### 88152-3 ####[facility] LABIA [id number] [place] [address] [place] JUSTUS MCHC (RBC) [Mass/Vol]32.4 g/jLPlkijj61.5-36.0[facility] on above:Order Comment: Specimen Type: BLOOD SPECIMENOrdering Facility: [facility] Address:[address] [place] [address] Performed By: #### 30516-8 ####[facility] LABIA [id number] [place] [address] [place] MCV (RBC) [Entitic vol]91.8 gDYxvitf62.0-100.0[facility] on above:Order Comment: Specimen Type: BLOOD SPECIMENOrdering Facility: [facility] Address:[address] [place] [address] Performed By: #### 04179-7 ####[facility] LABIA [id number] [place] [address] [place] Monocytes (Bld) [#/Vol]0.94 10*3/uLHigh<0.87[facility] on above:Order Comment: Specimen Type: BLOOD SPECIMENOrdering Facility: [facility] Address:[address] [place], [place] [address]Performed By: #### 07178-2 ####[facility] LABIA [id number] [place] [address] [place] AMERICAMonocytes/100 WBC (Bld)7.3 %NormalOhio State University [facility] on above:Order Comment: Specimen Type: BLOOD SPECIMENOrdering Facility: [facility] Address:[address] [place], [place] [address]Performed By: #### 51156-4 ####[facility] LABIA [id number] [place] [address] [place] AMERICANeutrophils (Bld) [#/Vol]10.95 10*3/uLHigh1.45-7.50[facility] on above:Order Comment: Specimen Type: BLOOD SPECIMENOrdering Facility: [facility] Address:[address] [place], [place] [address]Performed By: #### 93642-2 ####[facility] LABCLIA [id number] [place] [address] [place] AMERICANeutrophils/100 WBC (Bld)85.4 % NormalEast Liverpool City Hospitalment on above:Order Comment: Specimen Type: BLOOD SPECIMENOrdering Facility: [facility] Address:[address] [place], [place] [address]Performed By: #### 16808-8 ####[facility] LABCLIA [id number] [place] [address] [place] AMERICANucleated RBC (Bld) [#/Vol]10*3/uLNormal<0.01[facility] on above:Order Comment: Specimen Type: BLOOD SPECIMENOrdering Facility: [facility] Address:[address] [place], [place] [address]Performed By: #### 53601-5 ####[facility] LABCLIA [id number] [place] [address] [place] Nucleated RBC/100 WBC (Bld) [Ratio]0.0 /100 WBCNormalClevelDavis Regional Medical Center Comment on above:Order Comment: Specimen Type: BLOOD SPECIMENOrdering Facility: [facility] Address:[address] [place] [address] Performed By: #### 09565-7 ####[facility] LABCLIA [id number] [place] [id number] [place] Platelet mean volume (Bld) [Entitic vol]10.5 fLNormal9.0-12.7ClevelSelect Medical Specialty Hospital - [facility] on above:Order Comment: Specimen Type: BLOOD SPECIMENOrdering Facility: [facility] Address:[address] [place], [place] [address]Performed By: #### 27458-2 ####[facility] LABCLIA [id number] [place] [address] [place] Platelets (Bld) [#/Vol]309 10*3/pYQcztsd978-401KbvfrzedoOhio State University [facility] on above:Order Comment: Specimen Type: BLOOD SPECIMENOrdering Facility: [facility] Address:[address] [place] [address] Performed By: #### 54859-4 ####[facility] [id number] [place] [address] [place] RBC (Bld) [#/Vol]3.77 10*6/uLLow3.90-5.20[facility] on above:Order Comment: Specimen Type: BLOOD SPECIMENOrdering Facility: [facility] Address:[address] [place], [place] [address]Performed By: #### 56046-6 ####[facility] [id number] [address] STATES OF [facility] MARYMOUNT HOSPITALWBC (Bld) [#/Vol]12.82 10*3/uLHigh3.70-11.00[facility] on above:Order Comment: Specimen Type: BLOOD SPECIMENOrdering Facility: 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 No residual mass or pathologic enhancement. Claims Processor: GUANACO Transcribe Date/Time: Feb 21 2025 11:17A Dictated by : CHIKA RUBY MD This examination was interpreted and the report reviewed and electronically signed by: TOMAS TAMEZ MD on Feb 21 2025 11:58AM EST [id number] Memorial Hospital PROGon 02-21-2025 NURSING PROGHNO ID: [id number] Author: MICHELLE BAEZ RN Service: Nursing Author [...] Michelle Baez RN February 21, 2025 10:07 [facility]NAL[facility]NO ID: [id number] Author: MICHELLE BAEZ RN Service: Nursing Author [...] Novak DATE: February 21, 2025 TIME: 9:09 [facility] HospitalNUTRITIONon [id number] ID: [id number] Author: ZULEMA SUMMERS RD Service: Nutrition Therapy Author Type: Registered Dietitian Type: Nutrition Filed: 02/21/2025 17:21 Note Text: NUTRITION THERAPY SCREEN NOTE SERVICE DATE: 02/21/2025 SERVICE TIME: Start Time: 1305 Care Plan: Continue current diet (carb controlled) Refer to: [employer] to Follow Discharge Recommendations: Diet Diet: carb [...] Question: Carbohydrate Control Answer: CONSISTENT CARBOHYDRATE 02/20/25 2743 Anthropometrics: Height: 165.1 cm (5' 5 ) [...] (mins): 3 SIGNATURE:Zulema Summers RDN, LD, MS, [facility] PATIENT NAME: Kourtney Novak DATE: February 21, 2025 TIME: 5:20 PMNormalGreen Cross HospitalTHERAPY NTon [id number] NT HNO ID: [id number] Author: OLIVIA WOLFF, PT Service: Physical Therapy Author Type: Physical Therapist Type: Therapy (PT/OT/Speech/Resp) Filed: 02/21/2025 12:40 Note Text: Physical Therapy Evaluation Summary SERVICE DATE: 02/21/2025 SERVICE TIME: 1145 to 1208 ROOM: [place] [address] PT 6 Clicks Score: 20 DISCHARGE RECOMMENDATIONS [...] 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 Denies falls. Lives with adult son and brother who both work and are IND in the home. SUBJECTIVE Agreeable to PT THERAPY DIAGNOSIS Reduced mobility-other TREATMENT INTERVENTIONS Evaluation, Gait Training (54447) Timed Code Treatment (minutes): 8 Skilled Treatment [...] Novak DATE: February 21, 2025 TIME: 12:40 PMNormalKettering Health [facility] POSTPROC EVALon 02-20-2025 ANES POSTPROC EVALHNO ID: [id number] Author: ZARA RAMACHANDRAN DO Service: ? Author Type: Anesthesiologist Type: Anesthesia Postprocedure Evaluation Filed: 02/20/2025 18:52 Note Text: POST ANESTHESIA EVALUATION NOTE : 1975 Procedure Summary Date: 02/20/25 Room / Location: [address] [facility] Anesthesia Start: 1221 Anesthesia Stop: [...] February 20, 2025 TIME: 6:17 PM CSN: [id number]h [facility] PRE-OPon [id number] PRE-OPHNO ID: [id number] Author: ZARA RAMACHANDRAN DO Service: ? Author Type: Anesthesiologist Type: Anesthesia Preprocedure Evaluation Filed: 02/20/2025 12:11 Note Text: ANESTHESIOLOGY DAY OF SURGERY NOTE : 1975 Procedure Information Date/Time: 02/20/25 1245 Procedures: ORBITOCRANIAL TO ANT CRAN FOSSA W/ SUPRAORB RIDGE OSTEOTOMY AND ELEV FRONTANDTEMP LOBE (Right: Brain) RESECTION LESION BASE OF ANTERIOR CRANIAL FOSSA INTRADURAL W/ DURAL REPAIR (Right: Brain) Location: [facility]IN [facility] Surgeons: Erik Pineda [...] and consent discussed: yes. Patient / Responsible Green Party agrees to proceed: yes Patient / [...] February 20, 2025 TIME: 12:10 PM CSN: [id number] Hospital DaytonARTERIAL BLOOD GASES WITH IONIZED MAGNESIUMon 17-91-0048Qiow deficit (BldA) [Moles/Vol]-4 mmol/KWja-9-9PmeahqxsfGreen Cross HospitalComment on above:Order Comment: Specimen Type: ARTERIAL BLOOD SPECIMENOrdering Facility: [facility] Address: [address] [place], [place] [address]Performed By: #### ALLMG ####[facility] LABIA [id number] [address] STATES OF AMERICACalcium.ionized (Bld) [Mass/Vol] 1.11 mmol/LNormal1.08-1.30Green Cross HospitalComment on above:Order Comment: Specimen Type: ARTERIAL BLOOD SPECIMENOrdering Facility: [facility]Address: [address] [place], [place] [address]Performed By: #### ALLMG ####[facility] LABIA [id number] [address] STATES OF AMERICACalcium.ionized adjusted to pH 7.4 (BldA) [Moles/Vol]1.12 mmol/LNormal1.08-1.30[facility] Comment on above:Order Comment: Specimen Type: ARTERIAL BLOOD SPECIMENOrdering Facility: [facility]Address: [address] [place], [place] [address]Performed By: #### ALLMG ####[facility] LABIA [id number] [place] [address] [place] Carboxyhemoglobin (BldA) [Mass fraction]0.6 %Normal0.0-2.0[facility] on above:Order Comment: Specimen Type: ARTERIAL BLOOD SPECIMENOrdering Facility: [facility]Address: [address] [place], [place] [address]Fljkrx Comment: Carboxyhemoglobin Reference Range for Smokers: 2.0-8.0%Performed By: #### ALLMG ####[facility] LABCLIA [id number] [address] [address] [place] OF AMERICACO2 (Bld) [Partial pressure]33 mm VsOlt08-23PbirsfvprGreen Cross Hospital Comment on above:Order Comment: Specimen Type: ARTERIAL BLOOD SPECIMENOrdering Facility: [facility]Address: [address] [place], [place] [address]Performed By: #### ALLMG ####[facility] LABCLIA [id number] [address] [place] [address] [place] CO2 adjusted to patient's actual temperature (Bld) [Partial pressure]33 mmHgLow 36-46[facility] on above:Order Comment: Specimen Type: ARTERIAL BLOOD SPECIMENOrdering Facility: [facility]Address: [address] [facility]PITALMiguel [place] [id number] By: #### ALLMG ####[facility] LABCLIA [id number] [address] [place] [address] [place] AMERICAGlucose [Mass/Vol]113 mg/ySKqfd64-987GfiseavxwOhio State University [facility] on above:Order Comment: Specimen Type: ARTERIAL BLOOD SPECIMENOrdering Facility: [facility]Address: [address] [place], [place] [address]Psqhdzqxm By: #### ALLMG ####[facility] LABIA [id number] [address] [place] [address] [place] AMERICAHCO3 (Bld) [Moles/Vol]20 mmol/FQou92-80LuflrrxyqOhio State University [facility] on above:Order Comment: Specimen Type: ARTERIAL BLOOD SPECIMENOrdering Facility: [facility]Address: [address] [place], [place] [address]Performed By: #### ALLMG ####[facility] LABIA [id number] [place] [address] [place] Hematocrit (Bld) [Volume fraction]32.7 %Low36.0-46.0[facility] Comment on above:Order Comment: Specimen Type: ARTERIAL BLOOD SPECIMENOrdering Facility: [facility]Address: [address] [place] [id number] By: #### ALLMG ####[facility] LABIA [id number] [place] [address] [place] Hemoglobin (Bld) [Mass/Vol]10.6 g/dLLow11.5-15.5CAccess Hospital Dayton Comment on above:Order Comment: Specimen Type: ARTERIAL BLOOD SPECIMENOrdering Facility: [facility]Address: [address] [place], [place] [address]Performed By: #### ALLMG ####[facility] LABIA [id number] [place] [address] [place] Lactate [Moles/Vol]1.0 mmol/LNormal0.5-2.2ClevelDavis Regional Medical CenterComment on above:Order Comment: Specimen Type: ARTERIAL BLOOD SPECIMENOrdering Facility: [facility]Address: [address] [place] [address] Performed By: #### ALLMG ####[facility] LABIA [id number] [place] [address] [place] AMERICAMagnesium [Moles/Vol]0.42 mmol/LLow0.45-0.60Green Cross HospitalComment on above: Order Comment: Specimen Type: ARTERIAL BLOOD SPECIMENOrdering Facility: [facility]Address: [address] [facility]ITALMiguel [place] [id number] Performed By: #### ALLMG ####[facility] LABIA [id number] [address] [address] [place] AMERICAMethemoglobin (Bld) [Mass fraction]2.1 %High0.0-1.5CUniversity Hospitals Elyria Medical Center on above: Order Comment: Specimen Type: ARTERIAL BLOOD SPECIMENOrdering Facility: [facility]Address: [address] [place] [address] Performed By: #### ALLMG ####[facility] LABCLIA [id number] [address] [address] [place] AMERICAOxygen (Bld) [Partial pressure]208 mm OiAygw16-73WnfldekozOhio State University [facility] on above: Order Comment: Specimen Type: ARTERIAL BLOOD SPECIMENOrdering Facility: [facility]Address: [address] [place] [id number] Performed By: #### ALLMG ####[facility] LABCLIA [id number] [address] [address] [place] AMERICAOxygen adjusted to patient's actual temperature (Bld) [Partial pressure]208 quVbJewo94-25 [facility] on above:Order Comment: Specimen Type: ARTERIAL BLOOD SPECIMENOrdering Facility: [facility]Address: [address] [place] [id number] By: #### ALLMG ####[facility] LABCLIA [id number] [address] [address] [place] OF AMERICAOxyhemoglobin (BldA) [Mass fraction]96 %Normal 95-98[facility] on above:Order Comment: Specimen Type: ARTERIAL BLOOD SPECIMENOrdering Facility: [facility]Address: [address] [place] [place] [id number] By: #### ALLMG ####[facility] LABCLIA [id number] [address] [address] [place] AMERICApH (Bld)7.41 [pH]Normal7.35-7.45[facility] on above:Order Comment: Specimen Type: ARTERIAL BLOOD SPECIMENOrdering Facility: [facility]Address: [address] [place], [place] [address]Performed By: #### ALLMG ####[facility] LABCLIA [id number] [address] [place] [address] [place] AMERICApH adjusted to patient's actual temperature (Bld)7.97Uifnpa7.35-7.45 [facility] on above:Order Comment: Specimen Type: ARTERIAL BLOOD SPECIMENOrdering Facility: [facility]Address: [address] [facility] HOSPITALMiguel [place], [place] [address]Performed By: #### ALLMG ####[facility] LABCLIA [id number] [address] [place] [address] [place] AMERICAPotassium [Moles/Vol]4.2 mmol/LNormal3.5-5.0 [facility] on above:Order Comment: Specimen Type: ARTERIAL BLOOD SPECIMENOrdering Facility: [facility]Address: [address] [place] [id number] By: #### ALLMG ####[facility] LABCLIA [id number] [address] [place] [address] [place] AMERICASodium [Moles/Vol]137 mmol/WJtlntp340-618EbufufgvmOhio State University [facility] on above:Order Comment: Specimen Type: ARTERIAL BLOOD SPECIMENOrdering Facility: [facility]Address: [address] [place] [place], [place] [address]Ewvvjtfdv By: #### ALLMG ####[facility] LABCLIA [id number] [address] [place] [address] [place] AMERICABase deficit (BldA) [Moles/Vol]-3 mmol/QFcw-9-3CrfdtxynrOhio State University [facility] on above:Order Comment: Specimen Type: ARTERIAL BLOOD SPECIMENOrdering Facility: [facility]Address: [address] [place] [place] [id number] By: #### ALLMG ####[facility] LABCLIA [id number] [address], [place] [address] [place] AMERICACalcium.ionized (Bld) [Mass/Vol]1.20 mmol/LNormal1.08-1.30[facility] on above:Order Comment: Specimen Type: ARTERIAL BLOOD SPECIMENOrdering Facility: [facility]Address: [facility] [place], [place] [address]Performed By: #### ALLMG ####[facility] LABCLIA [id number] [address] AMERICACalcium.ionized adjusted to pH 7.4 (BldA) [Moles/Vol]1.19 mmol/LNormal 1.08-1.30[facility] on above:Order Comment: Specimen Type: ARTERIAL BLOOD SPECIMENOrdering Facility: [facility] Address: [address] [place], [place] [address]Performed By: #### ALLMG ####[facility] LABCLIA [id number] [facility]ITALD [facility] DELTONA ERK [address]ETCarboxyhemoglobin (BldA) [Mass fraction]1.0 %Normal0.0-2.0[facility] on above:Order Comment: Specimen Type: ARTERIAL BLOOD SPECIMENOrdering Facility: [facility]Address: [address] [place], [place] [address]Result Comment: Carboxyhemoglobin Reference Range for Smokers: 2.0-8.0%Performed By: #### ALLMG ####[facility] LABCLIA [id number] [facility]OSPITALD AVENUENAPA STATE HOSPITALK L [address] [place] [address] STATES OF AMERICACO2 (Bld) [Partial pressure]37 mm UyBvmubh69-82EsuxjzlglOhio State University [facility] on above:Order Comment: Specimen Type: ARTERIAL BLOOD SPECIMENOrdering Facility: [facility] Address: [address] [place], [place] [address]Performed By: #### ALLMG ####[facility] LABCLIA [id number] [facility]OSPITALD AVENUEDESK L [address] [place] [address] [place] AMERICACO2 adjusted to patient's actual temperature (Bld) [Partial pressure]37 iwDrBeqllh85-08YajxxfzpbGreen Cross Hospital Comment on above:Order Comment: Specimen Type: ARTERIAL BLOOD SPECIMENOrdering Facility: [facility]Address: [address] [place], [place] [address]Xfdtmpojn By: #### ALLMG ####[facility] LABCLIA [id number] [address] [place] [address] [place] Glucose [Mass/Vol]114 mg/tTRvai61-699BlwsysrsbMercy Health St. Elizabeth Boardman HospitalCommclaren lapeer region on above: Order Comment: Specimen Type: ARTERIAL BLOOD SPECIMENOrdering Facility: [facility]Address: [address] [place] [address] Performed By: #### ALLMG ####[facility] LABCLIA [id number] [address] [address] [place] OF AMERICAHCO3 (Bld) [Moles/Vol]21 mmol/FClc26-30SeizhavnlGreen Cross HospitalComment on above:Order Comment: Specimen Type: ARTERIAL BLOOD SPECIMENOrdering Facility: [facility]Address: [address] [place], [place] [address]Cuzksnnzv By: #### ALLMG ####[facility] LABCLIA [id number] [address] [address] [place] AMERICAHematocrit (Bld) [Volume fraction]35.4 %Low36.0-46.0Green Cross HospitalCommclaren lapeer region on above:Order Comment: Specimen Type: ARTERIAL BLOOD SPECIMENOrdering Facility: [facility]Address: [address] [place] [place], [place] [address]Pylclqvan By: #### ALLMG ####[facility] LABCLIA [id number] [address] [address] [place] AMERICAHemoglobin (Bld) [Mass/Vol]11.5 g/hTMummfd06.5-15.5CAccess Hospital DaytonCommclaren lapeer region on above:Order Comment: Specimen Type: ARTERIAL BLOOD SPECIMENOrdering Facility: [facility]Address: [address] [place], [place] [address]Performed By: #### ALLMG ####[facility] LABCLIA [id number] [place] [address] [place] AMERICALactate [Moles/Vol]0.9 mmol/L Normal0.5-2.2CUniversity Hospitals [facility] on above:Order Comment: Specimen Type: ARTERIAL BLOOD SPECIMENOrdering Facility: [facility] Address: [address] [place], [place] [address]Performed By: #### ALLMG ####[facility] LABCLIA [id number] [place] [address] [place] AMERICAMagnesium [Moles/Vol]0.72 mmol/L High0.45-0.60[facility] on above:Order Comment: Specimen Type: ARTERIAL BLOOD SPECIMENOrdering Facility: [facility] Address: [address] [place], [place] [address]Performed By: #### ALLMG ####[facility] LABCLIA [id number] [place] [address] [place] AMERICAMethemoglobin (Bld) [Mass fraction]1.6 %High0.0-1.5CUniversity [facility] on above:Order Comment: Specimen Type: ARTERIAL BLOOD SPECIMENOrdering Facility: [facility]Address: [address] [place], [place] [address]Performed By: #### ALLMG ####[facility] LABCLIA [id number] [facility] [place] [address] [place] STATES OF AMERICAOxygen (Bld) [Partial pressure] 299 mm QfXsdc41-02JixecqegbOhio State University [facility] on above:Order Comment: Specimen Type: ARTERIAL BLOOD SPECIMENOrdering Facility: [facility]Address: [facility] [place], [place] [address]Performed By: #### ALLMG ####[facility] LABCLIA [id number] [place] [address] [place] AMERICAOxygen adjusted to patient's actual temperature (Bld) [Partial pressure]299 srSqEffj45-12PakzgauumOhio State University [facility] on above:Order Comment: Specimen Type: ARTERIAL BLOOD SPECIMENOrdering Facility: [facility]Address: [address] [place], [place] [address]Aaqkmmwnm By: #### ALLMG ####[facility] LABCLIA [id number] [address] [place] [address] [place] AMERICAOxyhemoglobin (BldA) [Mass fraction]97 %Dzojtm23-38PvmqjcckuOhio State University [facility] Center on above:Order Comment: Specimen Type: ARTERIAL BLOOD SPECIMENOrdering Facility: [facility]Address: [address] [address]Performed By: #### ALLMG ####[facility] LABCLIA [id number] [address] [place] [address] [place] OF AMERICApH (Bld)7.38 [pH]Normal7.35-7.45[facility] on above:Order Comment: Specimen Type: ARTERIAL BLOOD SPECIMENOrdering Facility: [facility]Address: [address] [place] [address] Performed By: #### ALLMG ####[facility] LABCLIA [id number] [address] [place] [address] [place] OF AMERICApH adjusted to patient's actual temperature (Bld)7.48Mxxeth2.35-7.45[facility] Comment on above:Order Comment: Specimen Type: ARTERIAL BLOOD SPECIMENOrdering Facility: [facility]Address: [address] [place], [place] [address]Fdftbwzsx By: #### ALLMG ####[facility] LABCLIA [id number] [address] [place] [address] [place] Potassium [Moles/Vol]4.2 mmol/LNormal3.5-5.0[facility] on above:Order Comment: Specimen Type: ARTERIAL BLOOD SPECIMENOrdering Facility: [facility]Address: [address] [place] [address] Performed By: #### ALLMG ####[facility] LABCLIA [id number] [address] [address] [place] OF AMERICASodium [Moles/Vol]139 mmol/EBkjijg305-658EreygbwazGreen Cross HospitalComment on above: Order Comment: Specimen Type: ARTERIAL BLOOD SPECIMENOrdering Facility: [facility]Address: [address] [place] [address] Performed By: #### ALLMG ####[facility] LABCLIA [id number] [address] [address] [place] OF AMERICABasic metabolic 2000 panelon 82-72-2350Yyrbn gap [Moles/Vol]12 mmol/LNormal8-15 [facility] on above:Order Comment: Specimen Type: BLOOD SPECIMENOrdering Facility: [facility] Address:[address] [place], [place] [address]Performed By: #### 10768-5 ####[facility] LABCLIA [id number] [address] [address] [place] OF AMERICACalcium [Mass/Vol]9.4 mg/dLNormal8.5-10.2CAccess Hospital [facility] Comment on above:Order Comment: Specimen Type: BLOOD SPECIMENOrdering Facility: [facility] Address:[address] [place] [address] Performed By: #### 08089-9 ####[facility] LABCLIA [id number] [address] [address] [place] Chloride [Moles/Vol]105 mmol/WEarjua60-965WdpjradheOhio State University [facility] on above:Order Comment: Specimen Type: BLOOD SPECIMENOrdering Facility: [facility] Address:[address] [place], [place] [address]Performed By: #### 27250-3 ####[facility] LABCLIA [id number] [address] [address] [place] OF AMERICACO2 [Moles/Vol]20 mmol/PIgf16-28StkeilpcrOhio State University [facility]xner Medical [facility] on above:Order Comment: Specimen Type: BLOOD SPECIMENOrdering Facility: [facility] Address:[address] [place], [place] [address]Performed By: #### 40612-5 ####[facility] LABIA [id number] [place] [address] [place] OF AMERICACreatinine [Mass/Vol]0.90 mg/dLNormal0.58-0.96[facility] on above:Order Comment: Specimen Type: BLOOD SPECIMENOrdering Facility: [facility] Address:[address] [place], [place] [address]Performed By: #### 17344-4 ####[facility] LABIA [id number] [address] OF AMERICACreatinine and Glomerular filtration rate.predicted panel (S/P/Bld)80 mL/min/1.73m???Normal>=60[facility] on above:Order Comment: Specimen Type: BLOOD SPECIMENOrdering Facility: [facility] Address:[address] [place], [place] [address]Result Comment: Estimated Glomerular Filtration Rate (eGFR) is [...] not accurately reflect actual GFR.Performed By: #### 92149-3 ####[facility] LABIA [id number] [place] [address] [place] OF AMERICAGlucose [Mass/Vol]94 mg/dLNormal 74-99[facility] on above:Order Comment: Specimen Type: BLOOD SPECIMENOrdering Facility: [facility] Address:[address] [place], [place] [address]Result Comment: The [place] Diabetes Association (ADA) provides guidance for cutoff [...] Standards of Medical Care in Diabetes 2016, [place] Diabetes Association. Diabetes Care. 2016.39(Suppl 1).Performed By: #### 88557-9 ####[facility] LABCLIA [id number] [place] [address] [place] AMERICAPotassium [Moles/Vol]4.1 mmol/L Normal3.7-5.1CAccess Hospital DaytonComment on above:Order Comment: Specimen Type: BLOOD SPECIMENOrdering Facility: [facility] Address:[address] [place], [place] [address]Performed By: #### 51822-8 ####[facility] LABIA [id number] [place] [address] [place] AMERICASodium [Moles/Vol]137 mmol/WLmnrmr847-042AflhgpbtyGreen Cross HospitalComment on above:Order Comment: Specimen Type: BLOOD SPECIMENOrdering Facility: [facility] Address:[address] [place], [place] [address]Performed By: #### 35529-4 ####[facility] LABIA [id number] [place] [address] [place] AMERICAUrea nitrogen [Mass/Vol]11 mg/dLNormal7-21[facility] Comment on above:Order Comment: Specimen Type: BLOOD SPECIMENOrdering Facility: [facility] Address:[address] [place] [address] Performed By: #### 82603-3 ####[facility] LABCLIA [id number] [address] OF [facility] OPERATIVE NOon 62-73-9775OJWMMAGTV NOHNO ID: [id number] Author: ERIK PINEDA MD Service: Neurosurgery Author Type: Physician Type: Operative Report Filed: 02/21/2025 09:26 Note Text: OPERATIVE/PROCEDURE REPORT LOG ID: [id number] SURGERY/PROCEDURE DATE: 02/20/2025 INCISION/PROCEDURE START TIME: 1:29 PM INCISION CLOSE/PROCEDURE END TIME: 4:07 PM SURGEON(S)/PROCEDURALIST(S) AND MEDICAL ADMINISTRATIVE(S): Surgeons and Role: * Erik Pineda MD [...] the OR table. The neuronavigation system using [employer] was then registered and accuracy was confirmed using external anatomical landmarks and previous imaging in the PACS system. IV antibiotics, steroids, and Keppra were then administered. The patient was then prepped and draped in standard fashion for cranial surgery. A timeout was then performed in accordance with [facility] operative protocols. A right frontotemporal craniotomy [...] was then marked with a bone pencil. Waverly holes were then placed in strategic places. Bony fragments were freed. The underlying dura was then stripped using a #3 [place]. Using a high speed air drill with [...] 02/20/2025 3:13 PM IMPLA (more content not included)...NormalGreen Cross HospitalPathology biopsy report Alexis (Tiss)on 49-80-9152OI DISCLAIMERNormBellevue Hospitalment on above:Order Comment: Specimen Type: TISSUE SPECIMENOrdering Facility: [facility] Address: [address] [place], [place] [address]Result Comment: Laboratory Developed Test (LDT) Disclaimer: Performance characteristics of immunohistochemical, immunofluorescent, and chromogenic in-situ hybridization tests have been determined by the performing laboratory within [facility]'s [facility] Pathology and Laboratory Medicine Department ([facility], [facility], [facility], [facility], [facility], [facility], or [facility]) in a manner consistent with CLIA requirements. One or more of these tests may not have been cleared or approved by the FDA. [facility] is regulated under CLIA as qualified to perform high- complexity testing. These tests are used for clinical purposes. These should not be regarded asinvestigational or for research. Positive and negative controls stain appropriately.Performed By: #### 17961-8 ####[facility] LABCLIA [id number] [address]ETCASE REPORTNormZanesville City Hospital on above:Order Comment: Specimen Type: TISSUE SPECIMENOrdering Facility: [facility] Address: [address] [place] [address]Ymslcf Comment: Surgical Pathology Report Case: [id number] Authorizing Provider: Erik Pineda MD Collected: 02/20/2025 03:13 PM Ordering Location: Admitting Received: 02/20/2025 04:45 PM Pathologist: Brody Olvera MD Specimen: Brain, Resection, right middle sphenoid wing tumorPerformed By: #### 95490-6 ####[facility] LABCLIA [id number] [address] [place] [address] [facility] HOSPITALCLINICAL HISTORYNormal [facility] on above:Order Comment: Specimen Type: TISSUE SPECIMENOrdering Facility: [facility] Address: [address] [place], [place] [address]Result Comment: Pre-op diagnosis: Intracranial meningioma (HCC) [D32.0] Preop testing [Z01.818]Performed By: #### 42310-7 ####[facility] LABIA [id number] [address] [place] [address] [facility] HOSPITALDIAGNOSIS COMMENTImmunohistochemical staining of the tumor with antibodies to SSTR2a and [place] was performed on block A1. The tumor shows positive staining with both antibodies, consistent with the diagnosis. A Ki-67 index of approximately 2-3% is focally noted.NormalOhio State University [facility] on above:Order Comment: Specimen Type: TISSUE SPECIMENOrdering Facility: [facility] Address: [address] [place], [place] [address]Performed By: #### 47511-7 ####[facility] LABIA [id number] [address] [place] [address] [facility] MEDICAL CENTERFINAL DIAGNOSISNormal [facility] on above:Order Comment: Specimen Type: TISSUE SPECIMENOrdering Facility: [facility] Address: [address] [place], [place] [address]Result Comment: A. Right middle sphenoid wing region, excision: - Morphologically consistent with meningothelial meningioma, WHO grade 1 at 1536 EDT Performed By: #### 73742-8 ####[facility] LABIA [id number] [address] [place] [address] [place] FINAL PERFORMING LABNormZanesville City Hospital on above:Order Comment: Specimen Type: TISSUE SPECIMENOrdering Facility: [facility] Address: [address] [place], [place] [address]Result Comment: Diagnostic interpretation performed at: [facility], [address] [place] [address], [facility] Centerk [place] [address] CLIA# [id number] [employer] Glass: JOANIE Bruceerformed By: #### 56532-0 ####[facility] LABIA [id number] [address] OF [facility] HOSPITALGROSS DESCRIPTIONNormalCAccess Hospital Dayton Comment on above:Order Comment: Specimen Type: TISSUE SPECIMENOrdering Facility: [facility] Address: [address] [place], [place] [address]Result Comment: A. Brain, Resection Received in formalin, labeled as brain resection, right middle sphenoid wing tumor is a single bryant-brown irregular rubbery tissue measuring 2.1 x 1.3 x 0.5 cm. Sectioning reveals bryant-davidson homogenous cut surfaces. Totally submitted in cassettes A1-A2. CG February 21, 2025 10:13 AM Gross examination performed at [facility], [address] [place], [place] [address]Performed By: #### 50539-5 ####[facility] LABIA [id number] [address] Kathy 90-06-2138BWOVAxizdfzrd (NSCAMN) KOURTNEY NOVAK ([id number]) 1975 F Date Time Provider Department 02/17/25 SHAKILA PHILLIPS [facility] During your visit today, we [...] postop follow up appts. Shakila Phillips RN, Aircraft Manager Allergies As of Date: 02/17/2025 (No Known [...] 02/14/2025 Encounter Status:Closed by SHAKILA PHILLIPS on 02/17/25NoOhioHealth Berger HospitalParis [id number] (PALORA) KOURTNEY NOVAK ([id number]) 1975 F Date Time Provider Department 02/15/25 MEHUL MARTIN During your visit today, we recorded the following information about you: Mehul Martin APRN.CNP 02/15/2025 8:15 AM Signed Please call patient. Lab did not draw Con[place], A1C, or BMP. Please have her go to closest [facility] lab to have them drawn. She can go to [facility] cancer center in [place] if that is best for her thank you. Thank you, MAMADOU Boyer Autumn, LPN 02/15/2025 8:22 AM Signed I called and spoke with patient. Relayed below message; denies questions at this time. Will go to [facility] CHRISTENSEN. Barbara Rosenthal LPN February 15, 2025 8:22 AM Mehul Martin APRN.CLINICAL GENETICIST 02/17/2025 4:16 PM Signed Lab still did [...] 02/14/2025 Encounter Status:Closed by BARBARA ROSENTHAL on 02/15/25NoWilson [address] HospitalCONFIR BLOOD TYPEon 51-44-8198VCOQZidortUwypyijvkC[facility] Comment on above:Order Comment: Specimen Type: BLOOD SPECIMENOrdering Facility: [facility] Address:[address] [place] [address] Performed By: #### CONABO ####CC MAIN BLOOD BANKCLIA [id number] [place] [address] [place] AMERICARh Nom (Bld)Negative NormalGreen Cross HospitalComment on above:Order Comment: Specimen Type: BLOOD SPECIMENOrdering Facility: [facility] Address:[address] [place], [place] [address]Performed By: #### CONABO ####[facility] BLOOD BANKIA [id number] [address] OF GGXKJLXVxX5j (Bld)on 28-65-6652Bvyeqek glucose Estimated from glycated hemoglobin (Bld) [Mass/Vol]108 mg/dLNormalCUniversity Hospitals Elyria Medical Center on above:Order Comment: Specimen Type: BLOOD SPECIMENOrdering Facility: [facility] Address:[address] [place], [place] [address]Result Comment: eAG: (Estimated average glucose) is a calculated value from HgbA1c and is corporate sales representative of the average blood glucose level in the last 2-3 month period. Performed By: #### 46353-6 ####[facility] [id number] [address] STATES [facility] HbA1c (Bld) [Mass fraction]5.4 %Normal4.3-5.6CUniversity Hospitals Elyria Medical Center on above:Order Comment: Specimen Type: BLOOD SPECIMENOrdering Facility: [facility] Address:[address] [place], [place] [address]Result Comment: [place] Diabetes Association guidelines indicate that patients with HgbA1c in the range 5.7-6.4% are at increased risk for development of diabetes, and intervention by lifestyle modification may be beneficial. HgbA1c greater or equal to 6.5% is considered diagnostic of diabetes.Performed By: #### 09890-9 ####[facility] LABIA [id number] [place] [address] [facility] SerPl-cCncon 22-14-3259AJC [Catalytic activity/Vol]27 U/LNormal7-38[facility] on above:Order Comment: Specimen Type: BLOOD SPECIMENOrdering Facility: [facility] Address:[address] [place], [place] [address]Performed By: #### 1742-6, 1919-8, 1987- ####[facility] LABIA [id number] [address] STATES [facility] CENTERAST SerPl-cCnc on 60-93-3834BTH [Catalytic activity/Vol]20 U/CWqelsg08-34YirnoanvgOhio State University [facility] on above:Order Comment: Specimen Type: BLOOD SPECIMENOrdering Facility: [facility] Address:[address] [place], [place] [address]Performed By: #### 1742-6, 1920-8, 1987- ####[facility] LABCLIA [id number] [facility]PITALD AVENUEDESK [address]CBC panel Auto (Bld)on 26-69-7031Zzxtchtefko distribution width (RBC) [Ratio]13.4 %Mfxubw04.5-15.0[facility] on above:Order Comment: Specimen Type: BLOOD SPECIMENOrdering Facility: [facility] Address:[address] [place], [place] [address]Performed By: #### 54793- 2, 4537-7 ####[facility] LABCLIA [id number] [facility]ITALD AV ENUEDESK [address] WOL[address] STREETHematocrit (Bld) [Volume fraction]39.2 %Ktdsjo34.0-46.0[facility] on above:Order Comment: Specimen Type: BLOOD SPECIMENOrdering Facility: [facility] Address:[address] [place], [place] [address]Performed By: #### 11612- 2, 4537-7 ####[facility] LABCLIA [id number] [facility] MEDICAL CENTERLID AV ENUEDESK [address] STREETHemoglobin (Bld) [Mass/Vol]12.6 g/mXVvlwwq62.5-15.5CUniversity Hospitals Elyria Medical Center on above: Order Comment: Specimen Type: BLOOD SPECIMENOrdering Facility: [facility] Address:[address] [place], [place] [address]Performed By: #### 09710- 2, 4537-7 ####[facility] LABCLIA [id number] [address] (RBC) [Entitic mass] 29.9 onHqapde52.0-34.0[facility] on above:Order Comment: Specimen Type: BLOOD SPECIMENOrdering Facility: [facility] Address:[address] [place], [place] [address]Performed By: #### 49388-5, 4536-7 ####[facility] LABIA [id number] [address] (RBC) [Mass/Vol]32.1 g/dL Ooipvo58.5-36.0[facility] on above:Order Comment: Specimen Type: BLOOD SPECIMENOrdering Facility: [facility] Address:[address] [place], [place] [address]Performed By: #### 90618-2, 7 ####[facility] LABIA [id number] [address]V (RBC) [Entitic vol]93.1 fL Ycgtoe79.0-100.0[facility] on above:Order Comment: Specimen Type: BLOOD SPECIMENOrdering Facility: [facility] Address:[address] [place], [place] [address]Performed By: #### 56641-1, 4537-03 ####[facility] LABIA [id number] [address] RBC (Bld) [#/Vol] 10*3/uLNormal<0.01[facility] on above:Order Comment: Specimen Type: BLOOD SPECIMENOrdering Facility: [facility] Address:[address] [place], [place] [address]Performed By: #### 14015-4, 4537-03 ####[facility] LABIA [id number] [place] AVENUED[place] [address] [place] AMERICAPlatelet mean volume (Bld) [Entitic vol]10.9 fLNormal9.0-12.7CUniversity Hospitals Ely[facility] Center on above: Order Comment: Specimen Type: BLOOD SPECIMENOrdering Facility: [facility] Address:[address] [place], [place] [address]Performed By: #### 45768- 2, 4537-7 ####[facility] LABCLIA [id number] [facility] [place] [address] [place] AMERICAPlatelets (Bld) [#/Vol] 329 10*3/xRDpgyrv974-209EosxpgkksOhio State University [facility] on above:Order Comment: Specimen Type: BLOOD SPECIMENOrdering Facility: [facility] Address:[address] [place], [place] [address]Performed By: #### 12478- 2, 4537-7 ####[facility] LABCLIA [id number] [facility] [place] [address] [facility] OF AMERICARBC (Bld) [#/Vol]4.21 10*6/uLNormal3.90-5.20[facility] on above:Order Comment: Specimen Type: BLOOD SPECIMENOrdering Facility: [facility] Address:[address] [place], [place] [address]Performed By: #### 23056-0, 4537-7 ####[facility] LABCLIA [id number] [place] [address] [place] AMERICAWBC (Bld) [#/Vol]7.27 10*3/uL Normal3.70-11.00[facility] on above:Order Comment: Specimen Type: BLOOD SPECIMENOrdering Facility: [facility] Address:[address] [place], [place] [address]Performed By: #### 86603-7, 4537-7 ####[facility] LABCLIA [id number] [place] [address] [facility] Centerl-[facility] 49-87-4366WYV [Mass/Vol]0.6 mg/dLNormal<0.9CUniversity Hospitals Elyria [facility] Center on above:Order Comment: Specimen Type: BLOOD SPECIMENOrdering Facility: [facility] Address:[address] [place], [place] [address]Performed By: #### 1742- 6, 192-8, 1988-01 ####[facility] [id number] [address]ETECG01on 02-14-2025 NNZ74Dtzqeoknhve Rate : 77 BPM Atrial Rate : 77 BPM P-R Interval : 138 ms QRS Duration : 82 ms Q-T Interval : 386 ms QTC Calculation(Bazett) : 436 ms Calculated P [place]asha : 36 degrees Calculated R Menasha : 47 degrees Calculated T [place]asha : 47 degrees NORMAL SINUS RHYTHM NORMAL ECG Confirmed by DI YORK M.D. ([id number]) on 02/14/2025 1:23:03 PM NAME : KOURTNEY NOVAK PID : [id number] : 1975 Gender : Female Race : ORD : Procedure Date : Feb 14 2025 07:00:27 Edit Date : Feb 14 2025 13:23:06 Diagnosis: NORMAL SINUS RHYTHM NORMAL ECG Confirmed by DI YORK M.D. ([id number]) on 02/14/2025 1:23:03 PM Test Reason : Location : 145 : [facility] Overread By : DI YORK M.D. Edited By : DI YORK M.D. Referred By : ERIK PINEDA Acquired by : Carlos romeroGreen Cross HospitalESR Westergren method (Bld) [Velocity]on 08-63-8448HYE (Bld) [Velocity]2 mm/hNormal0-20[facility] on above:Order Comment: Specimen Type: BLOOD SPECIMENOrdering Facility: [facility] Address:[address] [place], [place] [address]Performed By: #### 38808-4, 4537-7 ####[facility] [id number] [address] AMERICAHISTORY PHYSICALon 85-83-0347UGIQZBR PHYSICALHNO ID: [id number] Author: MEHUL MARTIN APRN.CNP Service: ? Author [...] [facility] rheumatology COPD (chronic obstructive pulmonary disease) ([facility]) Assessment: Stable with nebulizer treatments Denies any SOB Denies any Home oxygen use Lungs clear on exam SpO2 in office today 96% Monitored by PCP MAREK (obstructive sleep apnea) Assessment: Does not use CPAP Mixed hyperlipidemia Assessment: Compliant with Statin GERD (gastroesophageal reflux disease) Assessment: Controlled with dexilant Hypothyroidism Assessment: Controlled with levothyroxine Diabetes mellitus ([facility]) Assessment: Complaint with oral medications -A1C ordered today Instructions provided to patient on how long to hold diabetic medications prior to procedure Anxiety Assessment: Controlled with Lamictal Class 3 severe obesity due to excess calories with serious comorbidity and body mass index (BMI) of 40.0 to 44.9 in adult ([facility]) Assessment: Body mass index is [...] of breath with the above physical activity. RRX1CO8-VJNj Score: Age: <65 Sex: female CHF history: No Hypertension history: No Stroke/TIA/thromboembolism history: No Vascular disease history: No Diabetes history: Yes AOR2GU8-IGZm Score: 2 ARISCAT Score: Age: <=50 Preoperative [...] has meningioma that was (more content not included)...[facility] Brain WO and W contrast Lasha 80-85-3326JNACLIVDMP: Findings across multiple examinations suggesting an intraosseous meningioma centered in the right sphenoid buttress and slow progressive enlargement of the contiguous protuberant anterior right temporal extra-axial nodule looking back to the exam in November 2015. No acute abnormalities. Claims Processor: PSCB Transcribe Date/Time: Feb 14 2025 10:01A Dictated by : SEAN BLOCK MD This examination was interpreted and the report reviewed and electronically signed by: SEAN BLOCK MD on Feb 14 2025 10:22AM [facility] DIVISION OF RADIOLOGY* * *Final Report* [...] tissue mass extending into the of the rehabilitation director or parapharyngeal spaces. The soft tissue planes of the, retropharyngeal, and prevertebral spaces are maintained. The visualized parotid glands are normal in appearance. Nasopharynx/Oropharynx: The nasopharynx and oropharynx are normal in appearance. DIVISION OF RADIOLOGYProvider, [facility] [place] - 02/14/2025 * * *Final Report* * [...] tissue mass extending into the of the rehabilitation director or parapharyngeal spaces. The soft tissue planes [...] exam in November 2015. No acute abnormalities. Claims Processor: GUANACO Transcribe Date/Time: Feb 14 2025 10:01A Dictated by : SEAN BLOCK MD This examination was interpreted and the report reviewed and electronically signed by: SEAN BLOCK MD on Feb 14 2025 10:22AM EST [facility] HospitalRad[facility] observation (narrative)[facility] Brain WO and W contrast IVOrdered By: Ccf Provider on 29-41-4709Jlurjhfnu ClinicMRI BRAIN WO/W IVCONon 39-45-2007SLM BRAIN WO/W IVCON* * *Final Report* * [...] tissue mass extending into the of the rehabilitation director or parapharyngeal spaces. The soft tissue planes [...] exam in November 2015. No acute abnormalities. Claims Processor: [facility] Transcribe Date/Time: Feb 14 2025 10:01A Dictated by : SEAN BLOCK MD This examination was interpreted and the report reviewed and electronically signed by: SEAN BLOCK MD on Feb 14 2025 10:22AM EST [id number] Cross HospitalSTAPHYLOCOCCUS AUREUS AND MRSA SCREEN, PCR, NASALon 02-14-2025S. aureus and MRSA panel RADHA+probe (Nose)Not detectedNormalNot DetectedOhio State University Wexner Medical Center on above:Order Comment: Specimen Type: SWABOrdering Facility: [facility] Address: [address] [place], [place] [address]Performed By: #### SAPCR ####[facility] LABCLIA [id number] [place] [address] [place] OF AMERICATYPE AND SCREEN,30 DAYon 54-87-4684NCOYKiicmePeuoekhpiUniversity Hospitals Elyria Medical Center on above:Order Comment: Specimen Type: BLOOD SPECIMENOrdering Facility: [facility] Address:[address] [place], [place] [address]Performed By: #### TSCR30 ####[facility] BLOOD BANKCLIA [id number] [place] [address] [place] OF AMERICARh Nom (Bld)NegativeNormalCAccess Hospital Dayton Comment on above:Order Comment: Specimen Type: BLOOD SPECIMENOrdering Facility: [facility] Address:[address] [place] [address] Performed By: #### TSCR30 ####CC MAIN BLOOD BANKCLIA [id number] [place] [address] [place] OF AMERICAUS renal BIon 41-14-7607AT renal [facility] Main [place] [address] [place] [address] Ultrasound Report Signed Patient: Kourtney Novak MR#: [id number] : 1975 Acct:[id number] Age/Sex: 49 / F ADM Date: 02/10/25 Loc: Room: Type: [facility] Attending Dr: Jesus Gonzalez MD Ordering Provider: [...] Gray M.D. 02/10/2025 4:44 PM Dictation Location: [place] [address] Tech: Vani Olivia Transcribed By: [facility] 02/10/25 1644 Dictated By: George Gray DO 02/10/25 164 Signed By: 02/10/25 1644[facility] Physician GroupCNOVleyla 02-40-2367DAKPLncrit Visit (RHEUAV) KOURTNEY NOVAK ([id number]) 1975 F Date Time Provider Department 12/28/24 [...] Date Anxiety COPD (chronic obstructive pulmonary disease) ([facility]) Depression Diabetes mellitus ([facility]) Fibromyalgia Mixed hyperlipidemia PAST SURGICAL [...] good air moveme (more content not included)...Normal [facility] Cross HospitalX-ray reportOrdered By: Lincoln Hoffmann on 83-23-4669Yampu reportBLANCHARD [facility] [address] [place] [id number] XRay Report Signed Patient: Kourtney Novak MR#: [id number] : 1975 Acct:[id number] Age/Sex: 49 / F ADM Date: 5 Loc: [facility] Room: Type: [facility] Attending Dr: Elyssa Gomes MD Copies to: [...] Lincoln Hoffmann M.D.12/27/2024 4:47 PM Dictation Location: [place] [address] Transcribed By: [facility] 12/27/241646 Dictated By: Lincoln Hoffmann MD 12/27/241642 Signed By: 12/27/241646 [facility] Work Phone: XR wrist RT min 3V*on 58-06-0768MJ wrist RT min 3V* [facility] [address] [address] XRay Report Signed Patient: Kourtney Novak MR#: [id number] : 1975 Acct:[id number] Age/Sex: 49 / F ADM Date: 12/27/24 Loc: [facility] Room: Type: [facility] Attending Dr: Elyssa Gomes MD Copies to: [...] Lincoln Hoffmann M.D.12/27/2024 4:47 PM Dictation Location: [place] [address] Transcribed By: [facility] 12/27/241646 Dictated By: Lincoln Hoffmann MD 12/27/241642 Signed By: 12/27/24 164[facility] Physician GroupBasophils Auto (Bld) [#/Vol] Ordered By: Jesus Gonzalez on 89-37-6879Jmluubdee (Bld) [#/Vol]Automated basophil count0.0-0.2FFostoria City HospitalBasophils/100 WBC Auto (Bld)Ordered By: Jesus Gonzalez on 80-83-5504Rzpmbwvfe/100 WBC (Bld)Automated basophil %. [facility] HospitalComplete Blood Count Auto Diffon 12-13-2024 Basophils (Bld) [#/Vol]0.1 10*3/uLNormal0.0-0.2[facility] Comment on above:Result Comment: PERFORMED BY: [address] [place] [address] PATHOLOGIST ENAMEL PULVERIZER PAKO RAMACHANDRAN M.D.Performed By: #### LIPID, [id number], TSH3, T3F, FE PRO, [id number], T4T, MG, A1C WTH eA, CBC, PHOS #### [facility] [address] [place] [address] #### INSULIN #### [facility] ,Basophils/100 WBC (Bld)1.0 %Normal.The [facility] CentralComment on above:Performed By: #### LIPID, [id number], TSH3, T3F, FE PRO, [id number], T4T, MG, A1C WTH eA, CBC, PHOS #### [facility] [address] [place] [address] [place] #### INSULIN #### [facility] ,Eosinophils (Bld) [#/Vol]0.2 10*3/uLNormal0.0-0.45[facility] Comment on above:Performed By: #### LIPID, [id number], TSH3, T3F, FE PRO, [id number], T4T, MG, A1C WTH eA, CBC, PHOS #### [address] #### INSULIN #### [facility] ,Eosinophils/100 WBC (Bld)2.7 %Normal.The [facility] Physician GroupComment on above:Performed By: #### LIPID, [id number], TSH3, T3F, FE PRO, [id number], T4T, MG, A1C WTH eA, CBC, PHOS #### [address] #### INSULIN #### [facility] ,Erythrocyte distribution width (RBC) [Ratio]13.3 %Yotehe88.9-15.3The [facility] Physician GroupComment on above:Performed By: #### LIPID, [id number], TSH3, T3F, FE PRO, [id number], T4T, MG, A1C WTH eA, CBC, PHOS #### [address] #### INSULIN #### [facility] ,Hematocrit (Bld) [Volume fraction]38.5 %Rnkrzj11.0-46.4The [facility] Physician GroupComment on above:Performed By: #### LIPID, [id number], TSH3, T3F, FE PRO, [id number], T4T, MG, A1C WTH eA, CBC, PHOS #### [place] [address] [place] #### INSULIN #### [facility] ,Hemoglobin (Bld) [Mass/Vol]12.7 g/mGTwxijd36.8-15.4The [facility] Physician GroupComment on above:Performed By: #### LIPID, [id number], TSH3, T3F, FE PRO, [id number], T4T, MG, A1C WTH eA, CBC, PHOS #### [place] [address] [place] #### INSULIN #### [facility] ,Lymphocytes (Bld) [#/Vol]2.6 10*3/uLNormal1.00-4.8[facility] Comment on above:Performed By: #### LIPID, [id number], TSH3, T3F, FE PRO, [id number], T4T, MG, A1C WTH eA, CBC, PHOS #### [place] [address] [place] #### INSULIN #### [facility] ,Lymphocytes/100 WBC (Bld)30.8 %Normal.The [facility] Physician GroupComment on above:Performed By: #### LIPID, [id number], TSH3, T3F, FE PRO, [id number], T4T, MG, A1C WTH eA, CBC, PHOS #### [address] #### INSULIN #### [facility] ,MCH (RBC) [Entitic mass]30.2 lyJphirr40.7-34.3The [facility] Comment on above:Performed By: #### LIPID, [id number], TSH3, T3F, FE PRO, [id number], T4T, MG, A1C WTH eA, CBC, PHOS #### [place] [address] [place] #### INSULIN #### [facility] ,MCV (RBC) [Entitic vol]91.4 sIGbmknm85-999Rsx [facility] GroupComment on above:Performed By: #### LIPID, [id number], TSH3, T3F, FE PRO, [id number], T4T, MG, A1C WTH eA, CBC, PHOS #### [place] [address] [place] #### INSULIN #### [facility] ,Mean Corpuscular HGB Conc33.1 g/pZCqsqhn24.0-35.0[facility] Comment on above:Performed By: #### LIPID, [id number], TSH3, T3F, FE PRO, [id number], T4T, MG, A1C WTH eA, CBC, PHOS #### [facility] [address] [place] [address] [place] #### INSULIN #### [facility] ,Monocytes (Bld) [#/Vol]0.9 10*3/uLHigh0.0-0.8[facility] Comment on above:Performed By: #### LIPID, [id number], TSH3, T3F, FE PRO, [id number], T4T, MG, A1C WTH eA, CBC, PHOS #### [address] #### INSULIN #### [facility] ,Monocytes/100 WBC (Bld)11.1 %Normal.The [facility] Physician GroupComment on above:Performed By: #### LIPID, [id number], TSH3, T3F, FE PRO, [id number], T4T, MG, A1C WTH eA, CBC, PHOS #### [place] [address] [place] #### INSULIN #### [facility] ,Neutrophils (Bld) [#/Vol]4.6 10*3/uLNormal1.8-7.7[facility] Comment on above:Performed By: #### LIPID, [id number], TSH3, T3F, FE PRO, [id number], T4T, MG, A1C WTH eA, CBC, PHOS #### [facility] [address] [place] [address] [place] #### INSULIN #### [facility] ,Neutrophils/100 WBC (Bld)54.4 %Normal.The [facility] Physician GroupComment on above:Performed By: #### LIPID, [id number], TSH3, T3F, FE PRO, [id number], T4T, MG, A1C WTH eA, CBC, PHOS #### [facility] [address] [place] [address] #### INSULIN #### [facility] ,NRBC%0.1 /100{WBC}Normal0-0.5The [facility] Physician GroupComment on above: Performed By: #### LIPID, [id number], TSH3, T3F, FE PRO, [id number], T4T, MG, A1C WTH eA, CBC, PHOS #### [facility] [address] [place] [address] [place] #### INSULIN #### [facility] ,Platelet mean volume (Bld) [Entitic vol]8.6 fLNormal6.3-10.7The [facility] Physician GroupComment on above:Performed By: #### LIPID, [id number], TSH3, T3F, FE PRO, [id number], T4T, MG, A1C WTH eA, CBC, PHOS #### [place] [address] [place] #### INSULIN #### [facility] ,Platelets (Bld) [#/Vol]372 10*3/nYDykedp068-116Hju [facility] Comment on above:Performed By: #### LIPID, [id number], TSH3, T3F, FE PRO, [id number], T4T, MG, A1C WTH eA, CBC, PHOS #### [place] [address] [place] #### INSULIN #### [facility] ,RBC (Bld) [#/Vol]4.22 10*6/uLNormal3.60-5.00[facility] Comment on above:Performed By: #### LIPID, [id number], TSH3, T3F, FE PRO, [id number], T4T, MG, A1C WTH eA, CBC, PHOS #### [address] #### INSULIN #### [facility] ,WBC (Bld) [#/Vol]8.5 10*3/uLNormal3.8-11.6The [facility] Physician GroupComment on above:Performed By: #### LIPID, [id number], TSH3, T3F, FE PRO, [id number], T4T, MG, A1C WTH eA, CBC, PHOS #### [address] #### INSULIN #### [facility] ,Eosinophils Auto (Bld) [#/Vol]Ordered By: eJsus Gonzalez on 94-69-9098Lbjlcgtmbul (Bld) [#/Vol]Automated eosinophil count0.0-0.45[facility] Eosinophils/100 WBC Auto (Bld)Ordered By: Jesus Gonzalez on 12-13-2024 Eosinophils/100 WBC (Bld)Automated eosinophil %.[facility]rbana HospitalErythrocyte distribution width Auto (RBC) [Ratio]Ordered By: Jesus Gonzalez on 20-98-5748Izrhqkmyhwd distribution width (RBC) [Ratio]Erythrocyte distribution width [Ratio] by Automated count11.9-15.3FFostoria City HospitalFerritinon 63-25-6886Gacgdsoi [Mass/Vol]56.2 ng/mMMsqotk52.0-306.8The [facility] Physician GroupComment on above:Result Comment: PERFORMED BY: [place] [address] PATHOLOGIST ENAMEL PULVERIZER PAKO RAMACHANDRAN M.D.Performed By: #### LIPID, [id number], TSH3, T3F, FE PRO, [id number], T4T, MG, A1C WTH eA, CBC, PHOS #### [address] #### INSULIN #### [facility] ,Ferritin [Mass/volume] in Serum or PlasmaOrdered By: Jesus Gonzalez on 12-13-2024 Ferritin [Mass/Vol]Ferritin [Mass/volume] in Serum or Yisffp61.0-306.8[facility]ana HospitalHematocrit Auto (Bld) [Volume fraction]Ordered By: Jesus Gonzalez on 61-07-1983Yzrwqbxafr (Bld) [Volume fraction]Hematocrit [Volume Fraction] of Blood by Automated count34.0-46.4FFostoria City Hospital Hemoglobin [Mass/volume] in BloodOrdered By: Jesus Gonzalez on 30-38-6716Rzwalcrsvh (Bld) [Mass/Vol]Hemoglobin [Mass/volume] in Blood11.8-15.4FFostoria City HospitalIronon 93-79-8410Isog [Mass/Vol]37 ug/tBDuw04-201Gmt [facility]ician GroupComment on above:Performed By: #### LIPID, [id number], TSH3, T3F, FE PRO, [id number], T4T, MG, A1C WTH eA, CBC, PHOS #### [address] #### INSULIN #### [facility] ,Iron [Mass/volume] in Serum or PlasmaOrdered By: Jesus Gonzalez on 27-56-3586Kefp [Mass/Vol]Iron [Mass/volume] in Serum or SxehnnWvd15-384OdvairwnvMercy Health Urbana HospitalLeukocytes [#/volume] corrected for nucleated erythrocytes in Blood by Automated counOrdered By: Jesus Gonzalez on 45-22-3176RSF corrected for nucl RBC Auto (Bld) [#/Vol]Leukocytes [#/volume] corrected for nucleated erythrocytes in Blood by Automated coun3.8-11.6FFostoria City Hospital Lymphocytes Auto (Bld) [#/Vol]Ordered By: Jesus Gonzalez on 48-45-0479Yiwuotceeqg (Bld) [#/Vol]Lymphocytes [#/volume] in Blood by Automated count1.00-4.8[facility]rbana HospitalLymphocytes/100 WBC Auto (Bld)Ordered By: Jesus Gonzalez on 16-35-0748Ifvpkytutit/100 WBC (Bld)Lymphocytes/100 leukocytes in Blood by Automated count.[facility] HospitalH Auto (RBC) [Entitic mass] Ordered By: Jesus Gonzalez on 82-53-2145GGM (RBC) [Entitic mass]MCH [Entitic mass] by Automated count24.7-34.3FFostoria City HospitalMCHC Auto (RBC) [Mass/Vol]Ordered By: Jesus Gonzalez on 78-20-6901JTDF (RBC) [Mass/Vol]MCHC [Mass/volume] by Automated count32.0-35.0[facility] HospitalMCV Auto (RBC) [Entitic vol]Ordered By: Jesus Gonzalez on 88-60-5443KKO (RBC) [Entitic vol]MCV [Entitic volume] by Automated jnynx21-626NhpiyffunMercy Health Urbana HospitalMonocytes Auto (Bld) [#/Vol]Ordered By: Jesus Gonzalez on 78-16-1598Ccbjeohky (Bld) [#/Vol]Automated blood monocyte countHigh0.0-0.8[facility]ana HospitalMonocytes/100 WBC Auto (Bld)Ordered By: Jesus Gonzalez on 12-13-2024 Monocytes/100 WBC (Bld)Automated monocyte %.[facility] Neutrophils Auto (Bld) [#/Vol]Ordered By: Jesus Gonzalez on 31-59-2320Aypugnsxbeu (Bld) [#/Vol]Neutrophils [#/volume] in Blood by Automated count1.8-7.7FFostoria City HospitalNeutrophils/100 WBC Auto (Bld)Ordered By: Jesus Gonzalez on 52-25-3293Xshuchomxoa/100 WBC (Bld)Automated neutrophil %.[facility]rbana HospitalNucleated erythrocytes [Presence] in Blood by Automated count Ordered By: Jesus Gonzalez on 51-14-8463Jtobfdawq RBC Auto Ql (Bld)Nucleated erythrocytes [Presence] in Blood by Automated count0-0.5FFostoria City HospitalPlatelet mean volume Auto (Bld) [Entitic vol]Ordered By: Jesus Gonzalez on 96-64-7390Hfgnpxbc mean volume (Bld) [Entitic vol]Platelet mean volume [Entitic volume] in Blood by Automated count6.3-10.7FFostoria City HospitalPlatelets Auto (Bld) [#/Vol]Ordered By: Jesus Gonzalez on 74-54-9620Pjuhkedwv (Bld) [#/Vol]Platelets [#/volume] in Blood by Automated yoxfm129-671MvidimzqlMercy Health Urbana HospitalRBC Auto (Bld) [#/Vol]Ordered By: Jesus Gonzalez on 95-94-2252ATL (Bld) [#/Vol]Erythrocytes [#/volume] in Blood by Automated count 3.60-5.00Mer[facility] Urbana HospitalWBC Auto (Bld) [#/Vol]Ordered By: Jesus Gonzalez on 46-53-0894BXO (Bld) [#/Vol]Leukocytes [#/volume] in Blood by Automated count3.8-11.6FFostoria City HospitalCNPNon 78-59-5614KVDZ Telephone (NSCAMN) KOURTNEY NOVAK ([id number]) 1975 F Date Time Provider Department 12/05/24 SHAKILA PHILLIPS [facility] During your visit today, we [...] reach out for questions/concerns/updates. Shakila Phillips RN, Aircraft Manager Allergies As of Date: 12/05/2024 (No Known [...] [G44*06/01/2023 Encounter Status:Closed by SHAKILA PHILLIPS on 12/05/24[facility] HospitalX-ray reportOrdered By: George Gray on 50-50-0553Vduux reportFIRMERCER COUNTY COMMUNITY HOSPITAL [facility] [address] [address] XRay Report Signed Patient: Kourtney Novak MR#: [id number] : 1975 Acct:[id number] Age/Sex: 48 / F ADM Date: 5 Loc: [facility] Room: Type: [facility] Attending Dr: Alessia Broderick MD Copies to: [...] M.D.11/03/2024 4:19 PM Dictation Location: [place] [address] Transcribed By: [facility] 11/03/24 1619 Dictated By: George Gray DO 11/03/24 1618 Signed By: 11/03/24 1619 [facility]rbana HospitalXR shoulder LT min 2V*on 66-46-7672LQ shoulder LT min 2V*[facility] [address] [address] XRay Report Signed Patient: Kourtney Novak MR#: [id number] : 1975 Acct:[id number] Age/Sex: 48 / F ADM Date: 11/03/24 Loc: [facility] Room: Type: [facility] Attending Dr: Alessia Broderick MD Copies to: [...] M.D.11/03/2024 4:19 PM Dictation Location: [place] [address] Transcribed By: [facility] 11/03/24 1619 Dictated By: George Gray DO 11/03/24 1618 Signed By: 11/03/24 1619[facility] Physician GroupCNPNon 63-74-3576FFSVMffprjein (MAGDALENAUAV) KOURTNEY NOVAK ([id number]) 1975 F Date Time Provider Department 10/10/24 ZULEMA WOOD During your visit today, we recorded the following information about you: Tere Escamilla LPN 10/10/2024 4:11 PM Addendum Received fax from [facility]. States that diagnosis code M19.9 ( inflammatory arthritis ) does not pass medical necessity for the [address] regarding CBC test. They needs a different order to be placed with another diagnosis code. Please fax to Jimbo Whitten at [phone]. Notice sent to scanning . Please route to [facility] nurse for follow up Tere Escamilla LPN 10/10/2024 5:01 PM Signed Faxed new order with updated diagnosis code . sent to [phone]. 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 [3602] Cmt: Lab order problem Primary Visit Diagnosis:Encounter for medication monitoring [Z51.81] Order(s):ASPARTATE AMINOTRANSFERASE/SGOT [SQAST] Order #: [id number] STANDING ALANINE AMINOTRANSFERASE / SGPT [SQALT] Order #: [id number] STANDING COMPLETE BLOOD COUNT [SQCBC] Order #: [id number] STANDING SEDIMENTATION RATE, WESTERGREN [SQWSR] Order #: [id number] STANDING C-REACTIVE PROTEIN [SQCRP] Order #: [id number] STANDING Prescriptions as of 10/10/2024 - DULoxetine [...] [G44*06/01/2023 Encounter Status:Closed by TERE ESCAMILLA on 10/10/24[facility] HospitalAlanine Aminotransferaseon 92-52-7455ZJH [Catalytic activity/Vol]21 U/L Normal7-The [facility] Physician GroupComment on above:Order Comment: FASTING.JKWPerformed By: #### LIPID, [id number], TSH3, T3F, FE PRO, OPCM82YFD, T4T, MG, A1C WTH eA, CBC, PHOS #### [facility] [address] [place] [address] #### INSULIN #### [facility] ,Alanine aminotransferase [Enzymatic activity/volume] in Serum or PlasmaOrdered By: Zulema Wood on 97-11-3678WJB [Catalytic activity/Vol]Alanine aminotransferase [Enzymatic activity/volume] in Serum or PlasmaMercy Health Urbana HospitalAspartate Amino Transferaseon 20-58-4318MMD [Catalytic activity/Vol]14 U/PKklqsr28-75Tas [facility] Physician GroupComment on above: Order Comment: FASTING.JKWPerformed By: #### LIPID, [id number], TSH3, T3F, FE PRO, GZLI38ZWL, T4T, MG, A1C WTH eA, CBC, PHOS #### [facility] [address] #### INSULIN #### [facility] ,Aspartate aminotransferase [Enzymatic activity/volume] in Serum or Plasma Ordered By: Zulema Wood on 84-16-1073SNC [Catalytic activity/Vol]Aspartate aminotransferase [Enzymatic activity/volume] in Serum or Zrgeub48-76SljamtlwvMercy Health Urbana HospitalBasophils Auto (Bld) [#/Vol]Ordered By: Zulema Wood on 30-42-3894Owpgoinka (Bld) [#/Vol]Automated basophil count0.0-0.2FFostoria City HospitalBasophils/100 WBC Auto (Bld)Ordered By: Zulema Wood on 97-57-9953Pksylwxez/100 WBC (Bld)Automated basophil %.[facility]ana HospitalC reactive protein [Mass/volume] in Serum or PlasmaOrdered By: Zulema Wood on 18-96-5027FRB [Mass/Vol]C reactive protein [Mass/volume] in Serum or PlasmaHigh0.0-0.5FFostoria City HospitalC-Reactive Proteinon 54-25-6406E-Reactive Protein0.7 mg/dLHigh0.0-0.5[facility] Comment on above:Order Comment: FASTING.[employer] Comment: PERFORMED BY: [place] [address] PATHOLOGIST ENAMEL PULVERIZER PAKO RAMACHANDRAN M.D.Performed By: #### LIPID, [id number], TSH3, T3F, FE PRO, JSJV81WOW, T4T, MG, A1C WTH eA, CBC, PHOS #### [facility] [address] [place] [address] #### INSULIN #### [facility] ,CNPNon 12-80-8554NTBCLrqmblpnn (RHEUAV) KOURTNEY NOVAK ([id number]) 1975 F Date Time Provider Department 09/20/24 ZULEMA WOOD During your visit today, we recorded the following information about you: Tere Escamilla LPN 09/20/2024 5:47 PM Signed Lab results received from [facility] . Copy sent to scan, copy sent to provider folder for review. . Allergies As of Date: 09/20/2024 (No Known Allergies) Date Reviewed: 05/30/2024 Reviewed by: Saritha Keith MA - Fully Assessed Reason for Visit: Results [95] Cmt: Lab results from [facility] Prescriptions as of 09/21/2024 - etodolac [...] [G44*06/01/2023 Encounter Status:Closed by TERE ESCAMILLA on 09/21/24[facility] HospitalComplete Blood Count Auto Diffon 54-71-1185Dfmpcfrds (Bld) [#/Vol]0.0 10*3/uLNormal0.0-0.2The [facility] Physician GroupComment on above:Order Comment: [email or web address] By: #### LIPID, [id number], TSH3, T3F, FE PRO, [id number], T4T, MG, A1C WTH eA, CBC, PHOS #### [place] [address] [place] #### INSULIN #### [facility] ,Basophils/100 WBC (Bld)0.6 %Normal.The [facility] Physician GroupComment on above:Order Comment: [email or web address] By: #### LIPID, [id number], TSH3, T3F, FE PRO, [id number], T4T, MG, A1C WTH eA, CBC, PHOS #### [facility] [address] [place] [address] [place] #### INSULIN #### [facility] ,Eosinophils (Bld) [#/Vol]0.1 10*3/uLNormal0.0-0.45[facility] Comment on above:Order Comment: [email or web address] By: #### LIPID, [id number], TSH3, T3F, FE PRO, [id number], T4T, MG, A1C WTH eA, CBC, PHOS #### [place] [address] [place] #### INSULIN #### [facility] ,Eosinophils/100 WBC (Bld)1.2 %Normal.[facility] GroupComment on above:Order Comment: FASTING.JKWPerformed By: #### LIPID, [id number], TSH3, T3F, FE PRO, [id number], T4T, MG, A1C WTH eA, CBC, PHOS #### [address] #### INSULIN #### [facility] ,Erythrocyte distribution width (RBC) [Ratio]13.0 %Mdtmys56.9-15.3The [facility] Physician GroupComment on above:Order Comment: FASTING.JKWPerformed By: #### LIPID, [id number], TSH3, T3F, FE PRO, [id number], T4T, MG, A1C WTH eA, CBC, PHOS #### [address] #### INSULIN #### [facility] ,Hematocrit (Bld) [Volume fraction]35.8 %Xeyucw51.0-46.4The [facility] Physician GroupComment on above:Order Comment: FASTING.JKWPerformed By: #### LIPID, [id number], TSH3, T3F, FE PRO, [id number], T4T, MG, A1C WTH eA, CBC, PHOS #### [place] [address] [place] #### INSULIN #### [facility] ,Hemoglobin (Bld) [Mass/Vol]12.0 g/tJGkrwnc46.8-15.4The [facility] Physician GroupComment on above:Order Comment: FASTING.JKWPerformed By: #### LIPID, [id number], TSH3, T3F, FE PRO, [id number], T4T, MG, A1C WTH eA, CBC, PHOS #### [place] [address] [place] #### INSULIN #### [facility] ,Lymphocytes (Bld) [#/Vol]2.1 10*3/uLNormal1.00-4.8[facility] Comment on above:Order Comment: FASTING.JKWPerformed By: #### LIPID, [id number], TSH3, T3F, FE PRO, [id number], T4T, MG, A1C WTH eA, CBC, PHOS #### [address] #### INSULIN #### [facility] ,Lymphocytes/100 WBC (Bld)28.4 %Normal.The [facility] Physician GroupComment on above:Order Comment: FASTING.JKWPerformed By: #### LIPID, [id number], TSH3, T3F, FE PRO, [id number], T4T, MG, A1C WTH eA, CBC, PHOS #### [address] #### INSULIN #### [facility] ,MCH (RBC) [Entitic mass]30.4 ptQfrzxg91.7-34.3[facility] Comment on above:Order Comment: FASTING.JKWPerformed By: #### LIPID, [id number], TSH3, T3F, FE PRO, [id number], T4T, MG, A1C WTH eA, CBC, PHOS #### [place] [address] [place] #### INSULIN #### [facility] ,MCV (RBC) [Entitic vol]90.8 bGWqzkcq35-888Xvf [facility] Physician GroupComment on above:Order Comment: FASTING.JKWPerformed By: #### LIPID, [id number], TSH3, T3F, FE PRO, [id number], T4T, MG, A1C WTH eA, CBC, PHOS #### [place] [address] [place] #### INSULIN #### [facility] ,Mean Corpuscular HGB Conc33.5 g/xVHdikxs36.0-35.0[facility] Comment on above:Order Comment: FASTING.JKWPerformed By: #### LIPID, [id number], TSH3, T3F, FE PRO, [id number], T4T, MG, A1C WTH eA, CBC, PHOS #### [address] #### INSULIN #### [facility] ,Monocytes (Bld) [#/Vol]1.0 10*3/uLHigh0.0-0.8[facility] Comment on above:Order Comment: FASTING.JKWPerformed By: #### LIPID, [id number], TSH3, T3F, FE PRO, [id number], T4T, MG, A1C WTH eA, CBC, PHOS #### [place] [address] [place] #### INSULIN #### [facility] ,Monocytes/100 WBC (Bld)13.1 %Normal.The [facility] Physician GroupComment on above:Order Comment: FASTING.JKWPerformed By: #### LIPID, [id number], TSH3, T3F, FE PRO, [id number], T4T, MG, A1C WTH eA, CBC, PHOS #### [place] [address] [place] #### INSULIN #### [facility] ,Neutrophils (Bld) [#/Vol]4.3 10*3/uLNormal1.8-7.7[facility] Comment on above:Order Comment: FASTING.JKWPerformed By: #### LIPID, [id number], TSH3, T3F, FE PRO, [id number], T4T, MG, A1C WTH eA, CBC, PHOS #### [facility] [address] [place] [address] [place] #### INSULIN #### [facility] ,Neutrophils/100 WBC (Bld)56.7 %Normal.The [facility] Health Physician GroupComment on above:Order Comment: FASTING.JKWPerformed By: #### LIPID, [id number], TSH3, T3F, FE PRO, [id number], T4T, MG, A1C WTH eA, CBC, PHOS #### [facility] [address] [place] [address] [place] #### INSULIN #### [facility] ,NRBC%0.0 /100{WBC}Normal0-0.5The [facility] Health Physician GroupComment on above: Order Comment: FASTING.JKWPerformed By: #### LIPID, [id number], TSH3, T3F, FE PRO, [id number], T4T, MG, A1C WTH eA, CBC, PHOS #### [facility] [address] [place] [address] [place] #### INSULIN #### [facility] ,Platelet mean volume (Bld) [Entitic vol]8.5 fLNormal6.3-10.7The [facility] Health Physician GroupComment on above:Order Comment: FASTING.JKWPerformed By: #### LIPID, [id number], TSH3, T3F, FE PRO, [id number], T4T, MG, A1C WTH eA, CBC, PHOS #### [facility] [address] [place] [address] [place] #### INSULIN #### [facility] ,Platelets (Bld) [#/Vol]353 10*3/oSTvxlox325-165Bnq [facility] Comment on above:Order Comment: FASTING.JKWPerformed By: #### LIPID, [id number], TSH3, T3F, FE PRO, [id number], T4T, MG, A1C WTH eA, CBC, PHOS #### [place] [address] [place] #### INSULIN #### [facility] ,RBC (Bld) [#/Vol]3.94 10*6/uLNormal3.60-5.00[facility] Comment on above:Order Comment: FASTING.JKWPerformed By: #### LIPID, [id number], TSH3, T3F, FE PRO, [id number], T4T, MG, A1C WTH eA, CBC, PHOS #### [address] #### INSULIN #### [facility] ,WBC (Bld) [#/Vol]7.5 10*3/uLNormal3.8-11.6The [facility] Health Physician GroupComment on above:Order Comment: FASTING.JKWPerformed By: #### LIPID, [id number], TSH3, T3F, FE PRO, [id number], T4T, MG, A1C WTH eA, CBC, PHOS #### [address] #### INSULIN #### [facility] ,Eosinophils Auto (Bld) [#/Vol]Ordered By: Zulema Wood on 42-95-2770Sgwjyglblwq (Bld) [#/Vol]Automated eosinophil count0.0-0.45[facility] HospitalEosinophils/100 WBC Auto (Bld)Ordered By: Zulema Wood on 09-20-2024 Eosinophils/100 WBC (Bld)Automated eosinophil %.[facility] HospitalErythrocyte Sedimentation Rateon 99-68-3116RKI (Bld) [Velocity]9 mm/h Normal0-19The [facility] Health Physician GroupComment on above:Order Comment: FASTING.JKWResult Comment: PERFORMED BY: [address] [place] [address] PATHOLOGIST ENAMEL PULVERIZER PAKO RAMACHANDRAN M.D.Performed By: #### LIPID, [id number], TSH3, T3F, FE PRO, [id number], T4T, MG, A1C WTH eA, CBC, PHOS #### [facility] [address] #### INSULIN #### [facility] ,Erythrocyte distribution width Auto (RBC) [Ratio]Ordered By: Zulema Wood on 70-78-0786Eazfzmxkwrz distribution width (RBC) [Ratio]Erythrocyte distribution width [Ratio] by Automated count11.9-15.3FFostoria City Hospital Erythrocyte sedimentation rate by Photometric methodOrdered By: Zulema Wood on 82-80-4826GQH Photometric method (Bld) [Velocity]Erythrocyte sedimentation rate by Photometric method0-19[facility] HospitalHematocrit Auto (Bld) [Volume fraction]Ordered By: Zulema Wood on 41-79-4219Ffcsrkrroh (Bld) [Volume fraction]Hematocrit [Volume Fraction] of Blood by Automated count34.0-46.4 [facility] HospitalHemoglobin [Mass/volume] in BloodOrdered By: Zulema Wood on 97-65-7564Srcjqobckt (Bld) [Mass/Vol]Hemoglobin [Mass/volume] in Blood11.8-15.4FFostoria City HospitalLeukocytes [#/volume] corrected for nucleated erythrocytes in Blood by Automated counOrdered By: Zulema Wood on 05-61-1753WTN corrected for nucl RBC Auto (Bld) [#/Vol]Leukocytes [#/volume] corrected for nucleated erythrocytes in Blood by Automated coun3.8-11.6FFostoria City HospitalLymphocytes Auto (Bld) [#/Vol]Ordered By: Zulema Wood on 13-12-5836Yxmtwgbsqbm (Bld) [#/Vol]Lymphocytes [#/volume] in Blood by Automated count1.00-4.8[facility] HospitalLymphocytes/100 WBC Auto (Bld)Ordered By: Zulema Wood on 68-69-7750Ocstlbpjwga/100 WBC (Bld) Lymphocytes/100 leukocytes in Blood by Automated count.[facility] HospitalMCH Auto (RBC) [Entitic mass]Ordered By: Zulema Wood on 62-94-9914HCA (RBC) [Entitic mass]MCH [Entitic mass] by Automated count24.7-34.3 [facility] HospitalMCHC Auto (RBC) [Mass/Vol]Ordered By: Zulema Wood on 41-19-5347HCIS (RBC) [Mass/Vol]MCHC [Mass/volume] by Automated count 32.0-35.0[facility] HospitalMCV Auto (RBC) [Entitic vol]Ordered By: Zulema Wood on 86-63-5761IIN (RBC) [Entitic vol]MCV [Entitic volume] by Automated awplc11-593TbtfvcdevMercy Health Urbana HospitalMonocytes Auto (Bld) [#/Vol]Ordered By: Zulema Wood on 92-17-5893Pwbjhcvhk (Bld) [#/Vol]Automated blood monocyte countHigh0.0-0.8[facility] HospitalMonocytes/100 WBC Auto (Bld)Ordered By: Zulema Wood on 75-34-6364Mbwcgiyfa/100 WBC (Bld) Automated monocyte %.[facility] HospitalNeutrophils Auto (Bld) [#/Vol]Ordered By: Zulema Wood on 82-88-2480Lbumepntvlc (Bld) [#/Vol] Neutrophils [#/volume] in Blood by Automated count1.8-7.7FFostoria City HospitalNeutrophils/100 WBC Auto (Bld)Ordered By: Zulema Wood on 15-55-1263Fwqxggorrqb/100 WBC (Bld)Automated neutrophil %.[facility] HospitalNucleated erythrocytes [Presence] in Blood by Automated count Ordered By: Zulema Wood on 16-39-3275Asooecoyi RBC Auto Ql (Bld)Nucleated erythrocytes [Presence] in Blood by Automated count0-0.5FFostoria City HospitalPlatelet mean volume Auto (Bld) [Entitic vol]Ordered By: Zulema Wood on 47-96-4083Lajrkniy mean volume (Bld) [Entitic vol]Platelet mean volume [Entitic volume] in Blood by Automated count6.3-10.7FFostoria City HospitalPlatelets Auto (Bld) [#/Vol]Ordered By: Zulema Wood on 09-20-2024 Platelets (Bld) [#/Vol]Platelets [#/volume] in Blood by Automated adgml687-646 [facility] HospitalRBC Auto (Bld) [#/Vol]Ordered By: Zulema Wood on 26-13-5108GHH (Bld) [#/Vol]Erythrocytes [#/volume] in Blood by Automated count3.60-5.00[facility] HospitalWBC Auto (Bld) [#/Vol]Ordered By: Zulema Wood on 12-11-4914AZG (Bld) [#/Vol]Leukocytes [#/volume] in Blood by Automated count3.8-11.6FFostoria City HospitalMM screening mammo BI w/CADon 15-08-1539EU screening mammo BI w/[facility]BL[facility] [place] [address] Mammography Report Signed Patient: Kourtney Novak MR#: [id number] : 1975 Acct:[id number] Age/Sex: 48 / F ADM Date: 09/16/24 Loc: [place] Room: Type: [facility] Attending Dr: Referral Self Copies to: Jesus [...] Lincoln Hoffmann M.D.09/16/2024 2:40 PM Dictation Location: [facility] Transcribed By: GRACIE 09/16/24 1440 Dictated By: Lincoln Hoffmann MD 09/16/24 1437 Signed By: 09/16/24 1440[facility] GroupMammography reportOrdered By: Lincoln Hoffmann on 06-20-2308Icuulhrjrs imaging [facility] [place] [address] [place] [address] Mammography Report Signed Patient: Kourtney Novak MR#: [id number] : 1975 Acct:[id number] Age/Sex: 48 / F ADM Date: 5 Loc: [place] Room: Type: [facility] Attending Dr: Referral Self Copies to: Jesus [...] Lincoln Hoffmann M.D.09/16/2024 2:40 PM Dictation Location: [facility] Transcribed By: GRACIE 09/16/24 1440 Dictated By: Lincoln Hoffmann MD 09/16/24 1437 Signed By: 09/16/24 1440 [facility] Work Phone: Thyrotropin [Units/volume] in Serum or PlasmaOrdered By: Jesus Gonzalez on 60-67-2413NBF Qn2.24 m[IU]/L0.45-5.33[facility] HospitalThyroxine (T4) [Mass/volume] in Serum or PlasmaOrdered By: Jesus Gonzalez on 98-52-7896W6 [Mass/Vol]11.23 ug/dL5.39-11.82[facility] HospitalTriiodothyronine (T3) Free [Mass/volume] in Serum or PlasmaOrdered By: Jesus Gonzalez on 76-38-1684Dlxh T3 [Mass/Vol]2.96 pg/mL2.50-3.90[facility] HospitalAlanine aminotransferase [Enzymatic activity/volume] in Serum or PlasmaOrdered By: Jesus Gonzalez on 19-28-0967ZBM [Catalytic activity/Vol]17 U/L 7-52[facility] HospitalAlbumin [Mass/volume] in Serum or Plasma by Bromocresol green (BCG) dye binding methoOrdered By: Jesus Gonzalez on 05-12-2024 Albumin BCG dye [Mass/Vol]4.1 g/dL3.5-5.7FFostoria City Hospital Alkaline phosphatase [Enzymatic activity/volume] in Serum or PlasmaOrdered By: Jesus Gonzalez on 62-36-1162DVX [Catalytic activity/Vol]42 U/J08-689XlrvxbnbiMercy Health Urbana HospitalAnisocytosis LM Ql (Bld)Ordered By: Jesus Gonzalez on 83-25-0705Ysbuxjlbojkf Ql (Bld)SlightMercy Health Urbana HospitalAspartate aminotransferase [Enzymatic activity/volume] in Serum or PlasmaOrdered By: Jesus Gonzalez on 83-19-6019FIS [Catalytic activity/Vol]11 U/XXfw86-85VyppebhbxMercy Health Urbana HospitalBand form neutrophils/100 WBC Manual cnt (Bld)Ordered By: Jesus Gonzalez on 37-30-8183Ichu form neutrophils/100 WBC (Bld)1 %0-5FFostoria City HospitalBasophils Auto (Bld) [#/Vol]Ordered By: Jesus Hoy on 95-02-4894Svvuakauf (Bld) [#/Vol]N/[facility] Basophils/100 WBC Auto (Bld)Ordered By: Jesus Gonzalez on 54-75-6032Pvvzuclcu/100 WBC (Bld)N/[facility] HospitalBasophils/100 WBC Manual cnt (Bld) Ordered By: Jesus Gonzalez on 56-10-9936Bmcuuvwgh/100 WBC (Bld)1 %0-2FFostoria City HospitalBilirubin.total [Mass/volume] in Serum or PlasmaOrdered By: Jesus Gonzalez on 16-86-5808Njfjsjnzb [Mass/Vol]0.4 mg/dL0.3-1.0[facility] HospitalCalcium [Mass/volume] in Serum or PlasmaOrdered By: Jesus Gonzalez on 31-90-1509Cwvzdty [Mass/Vol]9.4 mg/dL8.6-10.3FFostoria City HospitalCarbon dioxide, total [Moles/volume] in Serum or PlasmaOrdered By: Jesus Gonzalez on 49-39-9914BV9 [Moles/Vol]27.0 mmol/L21.0-31.0[facility] HospitalChloride [Moles/volume] in Serum or PlasmaOrdered By: Jesus Gonzalez on 72-59-0051Nirynsqi [Moles/Vol]101 mmol/H21-485KzgzuqlubMercy Health Urbana HospitalCholesterol [Mass/volume] in Serum or PlasmaOrdered By: Jesus Gonzalez on 17-31-6195Sobgtnznkes [Mass/Vol]191 mg/zC518-627FqvgqfgatMercy Health Urbana HospitalComment on above:Chol less than 200 mg/dl low riskChol 201-239 mg/dl borderline riskChol 240 mg/dl and greater high riskCholesterol in LDL Calc [Mass/Vol]Ordered By: Jesus Gonzalez on 54-14-5905Bwxixxnszje in LDL [Mass/Vol]76 mg/dL0-100Mer[facility]rbana HospitalComment on above:LDL ATP III CLASSIFICATIONLDL less than 100 mg/dL OptimalLDL 100-129 mg/dL Near or above leklydbGQO644-645 mg/dL Borderline highLDL 160-189 mg/dL HighLDL greater than 189 mg/dL Very highCholesterol in VLDL Calc [Mass/Vol]Ordered By: Jesus Gonzalez on 29-09-2020Qmnymxhvfhs in VLDL [Mass/Vol]29 mg/dLMercy Health Urbana HospitalCreatinine [Mass/volume] in Serum or PlasmaOrdered By: Jesus Gonzalez on 24-84-9872Mfmwsrrqzw [Mass/Vol]1.05 mg/dL0.60-1.20[facility] HospitalEosinophils Auto (Bld) [#/Vol]Ordered By: Jesus Gonzalez on 05-12-2024 Eosinophils (Bld) [#/Vol]N/AFFostoria City HospitalEosinophils/100 WBC Auto (Bld)Ordered By: Jesus Gonzalez on 40-68-9461Buglwkpfufx/100 WBC (Bld)N/A [facility] HospitalEosinophils/100 WBC Manual cnt (Bld)Ordered By: Jesus Gonzalez on 23-94-7002Oitxewvokgw/100 WBC (Bld)2 %1-3FFostoria City HospitalErythrocyte distribution width Auto (RBC) [Ratio]Ordered By: Jesus Gonzalez on 84-94-2053Bjvktkubzkn distribution width (RBC) [Ratio]13.9 % 11.9-15.3FFostoria City HospitalFolate [Mass/volume] in Serum or PlasmaOrdered By: Jesus Gonzalez on 96-00-9470Tihypj [Mass/Vol]7.8 ng/mL>5.9 [facility] HospitalComment on above:Folate reference range: >5.9 ng/mlThe WHO technical consultation on folate and vitamin e11oknrhjpmujcy has determined that folate concentrations lessthan 4 ng/ml are considered deficient. Globulin Calc (S) [Mass/Vol]Ordered By: Jesus Gonzalez on 58-39-7933Tfmsxsjk (S) [Mass/Vol]2.0 g/dLMercy Health Urbana HospitalGlucose [Mass/volume] in Serum or PlasmaOrdered By: Jesus Gonzalez on 57-02-9495Hfvziun [Mass/Vol]111 mg/dL Ddqx93-043SvazotlyyMercy Health Urbana HospitalComment on above:ADA recommended reference rangeRandom Glucose Reference Range is dependent on time and content of last meal. Glucose of more than 200 mg/dL in a nonstressed, ambulatory subject supports the diagnosisof Diabetes Mellitus.Glucose mean value [Mass/volume] in Blood Estimated from glycated hemoglobinOrdered By: Jesus Gonzalez on 32-53-6631Yckeroh glucose Estimated from glycated hemoglobin (Bld) [Mass/Vol]114 mg/dLMercy Health Urbana HospitalHematocrit Auto (Bld) [Volume fraction]Ordered By: Jesus Gonzalez on 03-38-9493Mgrlugbjyz (Bld) [Volume fraction]39.1 %34.0-46.4FFostoria City HospitalHemoglobin A1c percentageOrdered By: Jesus Gonzalez 03-02-1424RdA2i (Bld) [Mass fraction]5.6 % 4.3-5.6FFostoria City HospitalComment on above:Increased risk for diabetes: 5.7 - 6.4diabetes: >6.4glycemic control for adults with diabetes: &l t;7.0Hemoglobin [Mass/volume] in BloodOrdered By: Jesus Gonzalez on 05-12-2024 Hemoglobin (Bld) [Mass/Vol]12.9 g/dL11.8-15.4FFostoria City Hospital Iron [Mass/volume] in Serum or PlasmaOrdered By: Jesus Gonzalez on 52-63-1636Vhnr [Mass/Vol]80 ug/zO04-439EjhfgfzeuMercy Health Urbana HospitalLeukocytes [#/volume] corrected for nucleated erythrocytes in Blood by Automated counOrdered By: Jesus Gonzalez on 93-48-0502CPY corrected for nucl RBC Auto (Bld) [#/Vol]11.8 10*3/uLHigh3.8-11.6FFostoria City HospitalLymphocytes Auto (Bld) [#/Vol]Ordered By: Jesus Gonzalez on 18-34-6634Rcuaqkvgdlj (Bld) [#/Vol]N/A [facility] HospitalLymphocytes/100 WBC Auto (Bld)Ordered By: Jesus Gonzalez on 71-94-2457Yyvtaxxximv/100 WBC (Bld)N/[facility] HospitalLymphocytes/100 WBC Manual cnt (Bld)Ordered By: Jesus Gonzalez on 05-12-2024 Lymphocytes/100 WBC (Bld)28 %18-42Mer[facility]ana HospitalMCH Auto (RBC) [Entitic mass]Ordered By: Jesus Gonzalez on 80-84-9350KEF (RBC) [Entitic mass]29.9 pg24.7-34.3FFostoria City HospitalMCHC Auto (RBC) [Mass/Vol] Ordered By: Jesus Gonzalez on 90-01-1565PVTT (RBC) [Mass/Vol]33.0 g/dL32.0-35.0 [facility] HospitalMCV Auto (RBC) [Entitic vol]Ordered By: Jesus Gonzalez on 52-04-5105XBP (RBC) [Entitic vol]90.8 kL33-585TwtjbaogyMercy Health Urbana HospitalMetamyelocytes/100 WBC Manual cnt (Bld)Ordered By: Jesus Gonzalez on 55-35-9998Npwyhpytghlvvt/100 WBC (Bld)2 %High0-0[facility] HospitalMicrocytes LM Ql (Bld)Ordered By: Jesus Gonzalez on 50-13-1481Fcuwsvzdum Ql (Bld)SlightMercy Health Urbana HospitalMonocytes Auto (Bld) [#/Vol]Ordered By: Jesus Gonzalez on 74-71-5045Chbtlenyk (Bld) [#/Vol]N/[facility] HospitalMonocytes/100 WBC Auto (Bld)Ordered By: Jesus Gonzalez on 05-12-2024 Monocytes/100 WBC (Bld)N/[facility] HospitalMonocytes/100 WBC Manual cnt (Bld)Ordered By: Jesus Gonzalez on 24-45-3579Dkbijlugm/100 WBC (Bld)12 % High2-11[facility] HospitalNeutrophils Auto (Bld) [#/Vol]Ordered By: Jesus Gonzalez on 51-61-2067Fehsitmvigj (Bld) [#/Vol]N/[facility] HospitalNeutrophils/100 WBC Auto (Bld)Ordered By: Jesus Gonzalez on 80-62-1280Dqtutzlphkv/100 WBC (Bld)N/[facility] HospitalNo Panel InformationOrdered By: Jesus Gonzalez on 15-96-0346Gquheyxkk GFR (CKD-EPI)> 60.0 mL/MinMercy Health Urbana HospitalPharmacy Creatinine Clearance (ChemN/A [facility] HospitalNucleated erythrocytes [Presence] in Blood by Automated countOrdered By: Jesus Gonzalez on 26-89-2784Anmezyblp RBC Auto Ql (Bld) N/[facility] HospitalPlatelet adequacy [Presence] in Blood by Light microscopyOrdered By: Jesus Gonzalez on 03-28-7841Ebwptahbm LM Ql (Bld)Normal NormalMercy Health Urbana HospitalPlatelet mean volume Auto (Bld) [Entitic vol]Ordered By: Jesus Gonzalez on 10-49-8929Qhycbkxc mean volume (Bld) [Entitic vol]8.1 fL6.3-10.7FFostoria City HospitalPlatelet morphology finding [Identifier] in BloodOrdered By: Jesus Gonzalez on 28-65-9627Etocenfy morphology finding Nom (Bld)NormalNormalMercy Health Urbana HospitalPlatelets Auto (Bld) [#/Vol]Ordered By: Jesus Gonzalez on 52-07-5302Xzedlvwyy (Bld) [#/Vol]392 10*3/dV193-793EvvoxxkguMercy Health Urbana HospitalPotassium [Moles/volume] in Serum or PlasmaOrdered By: Jesus Gonzalez on 05-31-2330Ywkctcjkt [Moles/Vol]4.1 mmol/L 3.5-5.1FFostoria City HospitalProtein [Mass/volume] in Serum or Plasma Ordered By: Jesus Gonzalez on 63-48-4159Ctarihr [Mass/Vol]6.1 g/dLLow6.4-8.9 [facility]ana HospitalRBC Auto (Bld) [#/Vol]Ordered By: Jesus Gonzalez on 63-25-1021JPN (Bld) [#/Vol]4.30 10*6/uL3.60-5.00[facility] HospitalRB morphologyOrdered By: Jesus Gonzalez on 76-71-5430ZOW morphology finding Nom (Bld)N/AFUC West Chester Hospitalegmented neutrophils/100 WBC Manual cnt (Bld)Ordered By: Jesus Gonzalez on 38-69-3816Lntcutavg neutrophils/100 WBC (Bld)54 %50-70Dunlap Memorial Hospitalerum or plasma albumin/globulin mass ratioOrdered By: Jesus Gonzalez on 57-76-4365Xqupfsm/Globulin [Mass ratio]2.1 {ratio}[facility] Hospitalerum or plasma anion gap determinationOrdered By: Jesus Gonzalez on 01-70-0969Lwvyr gap [Moles/Vol]12.1 mmol/L6.0-15.0[facility] Hospitalerum or plasma high density lipoprotein (HDL) cholesterol measurementOrdered By: Jesus Gonzalez on 05-12-2024 Cholesterol in HDL [Mass/Vol]86 mg/vP02-19JxajrkedqMercy Health Urbana Hospital Comment on above:HDL CHOL ATP-III CLASSIFICATION Cardiovascular RiskHDL > or equal to 60 mg/dL LOWHDL < 40 mg/dL HIGHSerum or plasma insulin measurement (units/volume)Ordered By: Jesus Gonzalez on 48-53-7666Pvdetnx Qn38.1 u[iU]/mLHigh 2.6-24.9[facility]ana HospitalComment on above:Performed at: - [facility] [address] [id number] Director: Maxim Daniel PhD, Phone: [phone] or plasma total cholesterol/high density lipoprotein (HDL) cholesterol mass ratOrdered By: Jesus Gonzalez on 05-12-2024 Cholesterol.total/Cholesterol in HDL [Mass ratio]2.2 {ratio}<5.0[facility] Hospitalodium [Moles/volume] in Serum or PlasmaOrdered By: Jesus Gonzalez on 29-94-0852Igggrd [Moles/Vol]136 mmol/J097-854MjiyyermcMercy Health Urbana HospitalThyrotropin [Units/volume] in Serum or PlasmaOrdered By: Jesus Gonzalez on 49-29-4279CCX Qn6.32 m[IU]/LHigh0.45-5.33[facility] HospitalThyroxine (T4) [Mass/volume] in Serum or PlasmaOrdered By: Jesus Gonzalez on 82-63-2507N5 [Mass/Vol]11.59 ug/dL5.39-11.82[facility] Triglyceride [Mass/volume] in Serum or PlasmaOrdered By: Jesus Gonzalez on 83-12-4493Vjrpebthsipi [Mass/Vol]146 mg/dL0-149[facility] Comment on above:TRIG ATP III CLASSIFICATIONTRIG less than 150 mg/dL NormalTRIG 150-199 mg/dL Borderline highTRIG 200-500 mg/dL High TRIG greater than 500 mg/dL Very highStandard traceable to the Center for Disease Conrtrol and Prevention (CDC) test method.Triiodothyronine (T3) Free [Mass/volume] in Serum or Plasma Ordered By: Jesus Gonzalez on 70-47-7118Fgag T3 [Mass/Vol]3.61 pg/mL2.50-3.90 [facility] HospitalUrea nitrogen [Mass/volume] in Serum or Plasma Ordered By: Jesus Gonzalez on 11-99-9916Cfys nitrogen [Mass/Vol]20 mg/dL7-25 [facility] HospitalVitamin B12 ser/plasOrdered By: Jesus Gonzalez on 95-84-3336Uusxtjink (Vitamin B12) [Mass/Vol]306 pg/oB457-839FgzxrjdofMercy Health Urbana HospitalVitamin D+Metabolites [Mass/volume] in Serum or PlasmaOrdered By: Jesus Gonzalez on 03-87-5536Rajzaef D+Metabolites [Mass/Vol]39.9 ng/uP15-001 [facility] HospitalComment on above:VITAMIN D STATUS 25(OH)VITAMIN D RANGE (ng/mL) Deficient <20 Insufficient 20 to <98Vynxosjqvl24 to 100Reference: Nain MF,Anum LAURA, Brynn APARICIO et al. Evaluation,treatment, and prevention of vitamin D deficiency; an Endocrine Society clinical practice guideline. JCEM. 2010; 96(7):1911-30.WBC Auto (Bld) [#/Vol]Ordered By: Jesus Smithpiedad on 27-47-1203UML (Bld) [#/Vol]11.8 10*3/uL High3.8-11.6FFostoria City HospitalCT BRAIN WO IVCONon 04-78-0105IE BRAIN WO IVCON* * *Final Report* * * DATE OF EXAM: Jan 29 2024 1:02PM [facility] 0504 - CT BRAIN WO [...] soft tissue component identified in the orbit. Claims Processor: GUANACO Transcribe Date/Time: Jan 31 2024 3:33P Dictated by : NATIVIDAD PRIEST MD This examination was interpreted and the report reviewed and electronically signed by: NATIVIDAD PRIEST MD on Jan 31 2024 3:37PM EST [id number]-Fairview General HospitalMRI SKULL BASE WO/W IVCONon [id number] SKULL BASE WO/W IVCON* * *Final Report* [...] tissue mass extending into the of the rehabilitation director or parapharyngeal spaces. The soft tissue planes of the, retropharyngeal, and prevertebral spaces are maintained. The visualized parotid glands are normal in appearance. Nasopharynx/Oropharynx: The nasopharynx and oropharynx are normal in appearance. 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 Claims Processor: GUANACO Transcribe Date/Time: Jan 31 2024 5:10P Dictated by : WESTLEY IYER MD This examination was interpreted and the report reviewed and electronically signed by: WESTLEY IYER MD on Jan 31 2024 5:28PM EST [id number]-Fairview General HospitalAlanine aminotransferase [Enzymatic activity/volume] in Serum or PlasmaOrdered By: Zulema Wood on 31-51-3288WKL [Catalytic activity/Vol]22 U/L7-52[facility] HospitalAspartate aminotransferase [Enzymatic activity/volume] in Serum or Plasma Ordered By: Zulema Wood on 20-55-3955DWM [Catalytic activity/Vol]16 U/L13-39 [facility] HospitalBasophils Auto (Bld) [#/Vol]Ordered By: Zulema Wood on 63-62-7531Rnxnpkjht (Bld) [#/Vol]0.1 10*3/uL0.0-0.2FFostoria City HospitalBasophils/100 WBC Auto (Bld)Ordered By: Zulema Wood on 01-08-2024 Basophils/100 WBC (Bld)1.1 %.[facility] HospitalCreatinine [Mass/volume] in Serum or PlasmaOrdered By: Zulema Wood on 92-31-6670Ujrcqanqos [Mass/Vol]1.00 mg/dL0.60-1.20[facility] HospitalEosinophils Auto (Bld) [#/Vol]Ordered By: Zulema Wood on 43-92-8030Ipxcvayrvll (Bld) [#/Vol]0.1 10*3/uL0.0-0.45[facility] HospitalEosinophils/100 WBC Auto (Bld) Ordered By: Zulema Wood on 56-94-4891Ocmtsogbbqw/100 WBC (Bld)1.8 %.[facility] HospitalErythrocyte distribution width Auto (RBC) [Ratio]Ordered By: Zulema Wood on 22-20-3656Sfuzfijdkdz distribution width (RBC) [Ratio]13.1 % 11.9-15.3FFostoria City HospitalHematocrit Auto (Bld) [Volume fraction]Ordered By: Zulema Wood on 46-32-2294Eoztrxqfuv (Bld) [Volume fraction]39.2 %34.0-46.4FFostoria City HospitalHemoglobin [Mass/volume] in BloodOrdered By: Zulema Wood on 75-91-9351Exyhwekmms (Bld) [Mass/Vol]13.1 g/dL11.8-15.4FFostoria City HospitalLeukocytes [#/volume] corrected for nucleated erythrocytes in Blood by Automated coun Ordered By: Zulema Wood on 89-54-1443WCS corrected for nucl RBC Auto (Bld) [#/Vol]6.8 10*3/uL3.8-11.6FFostoria City HospitalLymphocytes Auto (Bld) [#/Vol]Ordered By: Zulema Wood on 49-27-9913Ikhtcmldjju (Bld) [#/Vol]2.0 10*3/uL1.00-4.8[facility] HospitalLymphocytes/100 WBC Auto (Bld) Ordered By: Zulema Wood on 40-62-9815Rnkachywzac/100 WBC (Bld)29.3 %.[facility] HospitalMCH Auto (RBC) [Entitic mass]Ordered By: Zulema Wood on 44-28-1282AXQ (RBC) [Entitic mass]30.6 pg24.7-34.3FFostoria City HospitalMCHC Auto (RBC) [Mass/Vol]Ordered By: Zulema Wood on 77-42-3559YAYZ (RBC) [Mass/Vol]33.4 g/dL32.0-35.0[facility] HospitalMCV Auto (RBC) [Entitic vol]Ordered By: Zulema Wood on 72-83-1140DBP (RBC) [Entitic vol]91.5 gX27-118DgsxgkbctMercy Health Urbana HospitalMonocytes Auto (Bld) [#/Vol]Ordered By: Zulema Wood on 04-60-1221Jllpvbbja (Bld) [#/Vol]0.8 10*3/uL0.0-0.8[facility] HospitalMonocytes/100 WBC Auto (Bld)Ordered By: Zulema Wood on 18-24-1043Aqohimgeg/100 WBC (Bld)11.3 %.[facility] Neutrophils Auto (Bld) [#/Vol]Ordered By: Zulema Wood on 55-92-0097Ngczeqnaewy (Bld) [#/Vol]3.9 10*3/uL1.8-7.7FFostoria City HospitalNeutrophils/100 WBC Auto (Bld)Ordered By: Zulema Wood on 06-45-1334Hlxyultcnoh/100 WBC (Bld) 56.5 %.[facility] HospitalNo Panel InformationOrdered By: Zulema Wood on 14-29-7283Pzwjglzah GFR (CKD-EPI)> 60.0 mL/MinMercy Health Urbana HospitalPharmacy Creatinine Clearance (ChemN/AFFostoria City HospitalNucleated erythrocytes [Presence] in Blood by Automated countOrdered By: Zulema Wood on 14-34-2110Fqsdlukqa RBC Auto Ql (Bld)0.1 /100{WBC}0-0.5FFostoria City HospitalPlatelet mean volume Auto (Bld) [Entitic vol]Ordered By: Zulema Wood on 86-65-4917Irvrerkt mean volume (Bld) [Entitic vol]8.4 fL6.3-10.7 [facility] HospitalPlatelets Auto (Bld) [#/Vol]Ordered By: Zulema Wood on 57-09-8219Gilozxvop (Bld) [#/Vol]284 10*3/mB132-014CqinasfsrMercy Health Urbana HospitalRBC Auto (Bld) [#/Vol]Ordered By: Zulema Wood on 41-66-3495SBA (Bld) [#/Vol]4.29 10*6/uL3.60-5.00[facility] HospitalWBC Auto (Bld) [#/Vol]Ordered By: Zulema Wood on 78-74-9215YZN (Bld) [#/Vol]6.8 10*3/uL 3.8-11.6FFostoria City HospitalBasophils Auto (Bld) [#/Vol]Ordered By: Jesus Gonzalez on 77-58-8324Wrqcinyhg (Bld) [#/Vol]0.1 10*3/uL0.0-0.2FFostoria City HospitalBasophils/100 WBC Auto (Bld)Ordered By: Jesus Gonzalez on 12-97-6714Uwmeulvts/100 WBC (Bld)1.0 %.[facility] Eosinophils Auto (Bld) [#/Vol]Ordered By: Jesus Gonzalez on 92-95-9726Rnpmsxzumnn (Bld) [#/Vol]0.1 10*3/uL0.0-0.45[facility] HospitalEosinophils/100 WBC Auto (Bld)Ordered By: Jesus Gonzalez on 31-05-5407Tucoyxgobud/100 WBC (Bld)1.3 %.[facility] HospitalErythrocyte distribution width Auto (RBC) [Ratio]Ordered By: Jesus Gonzalez on 28-81-0590Foyeozroyru distribution width (RBC) [Ratio]13.3 %11.9-15.3FFostoria City HospitalFerritin [Mass/volume] in Serum or PlasmaOrdered By: Jesus Gonzalez on 12-27-3516Ubaistai [Mass/Vol]88.4 ng/mL11.0-306.8[facility] HospitalHematocrit Auto (Bld) [Volume fraction]Ordered By: Jesus Gonzalez on 02-65-8987Zfgshjjeew (Bld) [Volume fraction] 39.9 %34.0-46.4FFostoria City HospitalHemoglobin [Mass/volume] in BloodOrdered By: Jesus Gonzalez on 48-87-5373Vdkblzbcze (Bld) [Mass/Vol]13.0 g/dL 11.8-15.4FFostoria City HospitalIron [Mass/volume] in Serum or Plasma Ordered By: Jesus Gonzalez on 73-48-2387Ztkk [Mass/Vol]93 ug/dK47-849QbtlwulkjMercy Health Urbana HospitalLeukocytes [#/volume] corrected for nucleated erythrocytes in Blood by Automated counOrdered By: Jesus Gonzalez on 26-51-3546NKJ corrected for nucl RBC Auto (Bld) [#/Vol]8.7 10*3/uL3.8-11.6FFostoria City HospitalLymphocytes Auto (Bld) [#/Vol]Ordered By: Jesus Gonzalez on 74-79-8410Dzexqjewina (Bld) [#/Vol]3.7 10*3/uL1.00-4.8[facility] HospitalLymphocytes/100 WBC Auto (Bld)Ordered By: Jesus Gonzalez on 11-11-2023 Lymphocytes/100 WBC (Bld)42.6 %.[facility] HospitalH Auto (RBC) [Entitic mass]Ordered By: Jesus Gonzalez on 71-15-1087IRN (RBC) [Entitic mass]30.0 pg24.7-34.3FFostoria City HospitalMCHC Auto (RBC) [Mass/Vol]Ordered By: Jesus Gonzalez on 42-83-5241NAOG (RBC) [Mass/Vol]32.6 g/dL32.0-35.0[facility] HospitalMCV Auto (RBC) [Entitic vol]Ordered By: Jesus Gonzalez on 13-88-7550KMP (RBC) [Entitic vol]92.1 oQ51-886AjfnccpioMercy Health Urbana Hospital Monocytes Auto (Bld) [#/Vol]Ordered By: Jesus Gonzalez on 95-96-2870Jmgwtgqjs (Bld) [#/Vol]0.9 10*3/uL0.0-0.8[facility] HospitalMonocytes/100 WBC Auto (Bld)Ordered By: Jesus Gonzalez on 37-43-4992Tjtqfszta/100 WBC (Bld)9.8 %. [facility] HospitalNeutrophils Auto (Bld) [#/Vol]Ordered By: Jesus Gonzalez on 67-23-8007Ajoxemdlqhd (Bld) [#/Vol]4.0 10*3/uL1.8-7.7FFostoria City HospitalNeutrophils/100 WBC Auto (Bld)Ordered By: Jesus Gonzalez on 88-06-8361Nugnpnwrahq/100 WBC (Bld)45.3 %.[facility] Nucleated erythrocytes [Presence] in Blood by Automated countOrdered By: Jesus Gonzalez on 74-58-7116Mjoicearo RBC Auto Ql (Bld)0.1 /100{WBC}0-0.5FFostoria City HospitalPlatelet mean volume Auto (Bld) [Entitic vol]Ordered By: Jesus Gonzalez on 81-86-2327Hirdcolm mean volume (Bld) [Entitic vol]9.0 fL6.3-10.7 [facility] HospitalPlatelets Auto (Bld) [#/Vol]Ordered By: Jesus Gonzalez on 24-67-7430Ptyrejgoi (Bld) [#/Vol]363 10*3/yE312-841CalcnnuylMercy Health Urbana HospitalRBC Auto (Bld) [#/Vol]Ordered By: Jesus Gonzalez on 39-33-2265EOV (Bld) [#/Vol]4.34 10*6/uL3.60-5.00[facility] HospitalWBC Auto (Bld) [#/Vol]Ordered By: Jesus Gonzalez on 80-50-8345ITY (Bld) [#/Vol]8.7 10*3/uL 3.8-11.6FFostoria City HospitalAlanine aminotransferase [Enzymatic activity/volume] in Serum or PlasmaOrdered By: Jesus Gonzalez on 21-57-2080NQC [Catalytic activity/Vol]14 U/L7-52[facility] HospitalAlbumin [Mass/volume] in Serum or Plasma by Bromocresol green (BCG) dye binding metho Ordered By: Jesus Gonzalez on 84-55-5432Eabslki BCG dye [Mass/Vol]4.1 g/dL3.5-5.7 [facility] HospitalAlkaline phosphatase [Enzymatic activity/volume] in Serum or PlasmaOrdered By: Jesus Gonzalez on 52-91-2566IGP [Catalytic activity/Vol]45 U/D99-106YzmyumhtoMercy Health Urbana HospitalAspartate aminotransferase [Enzymatic activity/volume] in Serum or PlasmaOrdered By: Jesus Gonzalez on 14-62-7771LPD [Catalytic activity/Vol]12 U/T07-92NyhfqnsguMercy Health Urbana HospitalBasophils Auto (Bld) [#/Vol]Ordered By: Jesus Gonzalez on 55-98-0176Zawndlpxd (Bld) [#/Vol]0.1 10*3/uL0.0-0.2FFostoria City HospitalBasophils/100 WBC Auto (Bld)Ordered By: Jesus Gonzalez on 05-22-2023 Basophils/100 WBC (Bld)0.9 %.[facility] HospitalBilirubin.total [Mass/volume] in Serum or PlasmaOrdered By: Jesus Gonzalez on 95-01-4550Obhowrbov [Mass/Vol]0.3 mg/dL0.3-1.0[facility] HospitalCalcium [Mass/volume] in Serum or PlasmaOrdered By: Jesus Gonzalez 71-07-1286Suroqgk [Mass/Vol]9.5 mg/dL8.6-10.3FFostoria City HospitalCarbon dioxide, total [Moles/volume] in Serum or PlasmaOrdered By: Jesus Gonzalez on 85-88-4658FW3 [Moles/Vol]25.4 mmol/L21.0-31.0[facility] HospitalChloride [Moles/volume] in Serum or PlasmaOrdered By: Jesus Gonzalez on 09-78-6066Zwawmabe [Moles/Vol]106 mmol/H91-530XyxmrcztvMercy Health Urbana HospitalCholesterol [Mass/volume] in Serum or PlasmaOrdered By: Jesus Gonzalez on 83-25-6651Bpwcnbexhej [Mass/Vol]182 mg/wE721-210LxwglwbqsMercy Health Urbana HospitalComment on above: Chol less than 200 mg/dl low riskChol 201-239 mg/dl borderline riskChol 240 mg/dl and greater high riskCholesterol in LDL Calc [Mass/Vol]Ordered By: Jesus Gonzalez on 02-31-7409Zmwlkqgxpzf in LDL [Mass/Vol]58 mg/dL0-100[facility] HospitalComment on above:LDL ATP III CLASSIFICATIONLDL less than 100 mg/dL OptimalLDL 100-129 mg/dL Near or above sekpwmvYVD439-663 mg/dL Borderline highLDL 160-189 mg/dL HighLDL greater than 189 mg/dL Very highCholesterol in VLDL Calc [Mass/Vol]Ordered By: Jesus Gonzalez on 98-25-5419Tbumrecwmfp in VLDL [Mass/Vol]44 mg/dLMercy Health Urbana HospitalCreatinine [Mass/volume] in Serum or PlasmaOrdered By: Jesus Gonzalez on 87-21-7103Doiphwcbnc [Mass/Vol]0.89 mg/dL0.60-1.20[facility] HospitalEosinophils Auto (Bld) [#/Vol] Ordered By: Jesus Gonzalez on 95-14-9361Jufwiuxdwmd (Bld) [#/Vol]0.1 10*3/uL 0.0-0.45[facility] HospitalEosinophils/100 WBC Auto (Bld)Ordered By: Jesus Gonzalez on 71-23-9218Etannfyhoqh/100 WBC (Bld)1.3 %.[facility] HospitalErythrocyte distribution width Auto (RBC) [Ratio]Ordered By: Jesus Gonzalez on 67-35-2105Jwihxczacdl distribution width (RBC) [Ratio]20.4 % 11.9-15.3FFostoria City HospitalFerritin [Mass/volume] in Serum or PlasmaOrdered By: Jesus Gonzalez on 58-59-9814Bodafvhs [Mass/Vol]147.2 ng/mL 11.0-306.8[facility] HospitalGlobulin Calc (S) [Mass/Vol]Ordered By: Jesus Gonzalez on 74-80-0535Ouqgzubh (S) [Mass/Vol]1.8 g/dLMercy Health Urbana HospitalGlucose [Mass/volume] in Serum or PlasmaOrdered By: Jesus Gonzalez on 06-09-2847Kdblywk [Mass/Vol]88 mg/oJ58-664UyemhmmppMercy Health Urbana Hospital Comment on above:ADA recommended reference rangeRandom Glucose Reference Range is dependent on time and content of last meal. Glucose of more than 200 mg/dL in a nonstressed, ambulatory subject supports the diagnosisof Diabetes Mellitus. Glucose mean value [Mass/volume] in Blood Estimated from glycated hemoglobin Ordered By: Jesus Gonzalez on 88-58-0764Gtnehgd glucose Estimated from glycated hemoglobin (Bld) [Mass/Vol]105 mg/dLMercy Health Urbana HospitalHematocrit Auto (Bld) [Volume fraction]Ordered By: Jesus Gonzalez on 74-67-1057Dagbqwldqu (Bld) [Volume fraction]37.0 %34.0-46.4FFostoria City Hospital Hemoglobin A1c percentageOrdered By: Jesus Gonzalez on 92-16-5081FkY0q (Bld) [Mass fraction]5.3 %4.3-5.6FFostoria City HospitalComment on above:Increased risk for diabetes: 5.7 - 6.4diabetes: >6.4glycemic control for adults with diabetes: <7.0Hemoglobin [Mass/volume] in BloodOrdered By: Jesus Gonzalez on 75-47-1581Zqjsdveqjv (Bld) [Mass/Vol]11.9 g/dL11.8-15.4FFostoria City HospitalIron [Mass/volume] in Serum or PlasmaOrdered By: Jesus Gonzalez on 59-40-5617Huhn [Mass/Vol]57 ug/fU17-848YiufybauxMercy Health Urbana Hospital Leukocytes [#/volume] corrected for nucleated erythrocytes in Blood by Automated counOrdered By: Jesus Gonzalez on 98-56-9339FLT corrected for nucl RBC Auto (Bld) [#/Vol]9.6 10*3/uL3.8-11.6FFostoria City HospitalLymphocytes Auto (Bld) [#/Vol]Ordered By: Jesus Gonzalez on 39-56-1974Dnuyqaacuao (Bld) [#/Vol]2.2 10*3/uL1.00-4.8[facility] HospitalLymphocytes/100 WBC Auto (Bld) Ordered By: Jesus Gonzalez on 06-39-9876Hijuatqzfvw/100 WBC (Bld)22.5 %.[facility] HospitalH Auto (RBC) [Entitic mass]Ordered By: eJsus Gonzalez on 67-36-1640SMV (RBC) [Entitic mass]27.7 pg24.7-34.3FFostoria City HospitalMCHC Auto (RBC) [Mass/Vol]Ordered By: Jesus Gonzalez on 98-24-7882NNYU (RBC) [Mass/Vol]32.2 g/dL32.0-35.0[facility] HospitalMCV Auto (RBC) [Entitic vol]Ordered By: Jesus Gonzalez on 20-21-7821LBC (RBC) [Entitic vol]85.8 fL 80-100Mer[facility] HospitalMonocytes Auto (Bld) [#/Vol]Ordered By: Jesus Gonzalez on 51-02-7336Qrvaqkfuu (Bld) [#/Vol]1.0 10*3/uL0.0-0.8[facility] HospitalMonocytes/100 WBC Auto (Bld)Ordered By: Jesus Gonzalez on 61-12-1632Arpoecxrg/100 WBC (Bld)9.9 %.[facility] Neutrophils Auto (Bld) [#/Vol]Ordered By: Jesus Gonzalez on 59-58-2590Xqiwvykngze (Bld) [#/Vol]6.3 10*3/uL1.8-7.7FFostoria City HospitalNeutrophils/100 WBC Auto (Bld)Ordered By: Jesus Gonzalez on 74-88-4502Tqogfqhvyxv/100 WBC (Bld)65.4 %.[facility] HospitalNo Panel InformationOrdered By: Jesus Gonzalez on 50-65-1372Bdmzqdsrx GFR (CKD-EPI)> 60.0 mL/MinMercy Health Urbana HospitalPharmacy Creatinine Clearance (ChemN/AFFostoria City Hospital Nucleated erythrocytes [Presence] in Blood by Automated countOrdered By: Jesus Gonzalez on 00-35-2856Ipnosiqlw RBC Auto Ql (Bld)0.1 /100{WBC}0-0.5FFostoria City HospitalPlatelet mean volume Auto (Bld) [Entitic vol]Ordered By: Jesus Gonzalez on 60-59-8307Rquvbdew mean volume (Bld) [Entitic vol]9.0 fL6.3-10.7 [facility] HospitalPlatelets Auto (Bld) [#/Vol]Ordered By: Jesus Gonzalez on 56-21-5663Miswepkru (Bld) [#/Vol]339 10*3/jX193-739ArrwadujaMercy Health Urbana HospitalPotassium [Moles/volume] in Serum or PlasmaOrdered By: Jesus Gonzalez on 32-06-6516Zzjfrukcg [Moles/Vol]3.9 mmol/L3.5-5.1FFostoria City HospitalProtein [Mass/volume] in Serum or PlasmaOrdered By: Jesus Gonzalez on 14-67-1595Mqutjdt [Mass/Vol]5.9 g/dL6.4-8.9[facility] HospitalRBC Auto (Bld) [#/Vol]Ordered By: Jesus Gonzalez on 13-30-0202BSV (Bld) [#/Vol]4.31 10*6/uL3.60-5.00[facility] Hospitalerum or plasma albumin/globulin mass ratioOrdered By: Jesus Gonzalez on 63-26-8389Axhgenh/Globulin [Mass ratio]2.3 {ratio}[facility] Hospitalerum or plasma anion gap determinationOrdered By: Jesus Gonzalez on 56-03-6978Qhhir gap [Moles/Vol]10.5 mmol/L6.0-15.0[facility] Hospitalerum or plasma high density lipoprotein (HDL) cholesterol measurementOrdered By: Jesus Gonzalez on 05-22-2023 Cholesterol in HDL [Mass/Vol]79 mg/oZ73-89BdkddgqynMercy Health Urbana Hospital Comment on above:HDL CHOL ATP-III CLASSIFICATION Cardiovascular RiskHDL > or equal to 60 mg/dL LOWHDL < 40 mg/dL HIGHSerum or plasma total cholesterol/high density lipoprotein (HDL) cholesterol mass ratOrdered By: Jesus Gonzalez on 79-39-8475Aoirbckqrop.total/Cholesterol in HDL [Mass ratio]2.3 {ratio}<5.0 [facility] Hospitalodium [Moles/volume] in Serum or PlasmaOrdered By: Jesus Gonzalez on 40-04-2370Ozsrkl [Moles/Vol]138 mmol/Q569-120NnlraanokMercy Health Urbana HospitalThyrotropin [Units/volume] in Serum or PlasmaOrdered By: Jesus Gonzalez on 55-37-8160ZBF Qn3.27 m[IU]/L0.45-5.33[facility] HospitalThyroxine (T4) free [Mass/volume] in Serum or PlasmaOrdered By: Jesus Gonzalez on 43-49-6899Stnn T4 [Mass/Vol]0.91 ng/dL0.61-1.12[facility] HospitalTriglyceride [Mass/volume] in Serum or PlasmaOrdered By: Jesus Gonzalez on 27-72-9479Utauroliaxcj [Mass/Vol]223 mg/dL0-149[facility] Comment on above:TRIG ATP III CLASSIFICATIONTRIG less than 150 mg/dL NormalTRIG 150-199 mg/dL Borderline highTRIG 200-500 mg/dL High TRIG greater than 500 mg/dL Very highStandard traceable to the Center for Disease Conrtrol and Prevention (CDC) test method.Urea nitrogen [Mass/volume] in Serum or PlasmaOrdered By: Jesus Gonzalez on 37-11-7127Cbcz nitrogen [Mass/Vol]10 mg/dL7-25Mer[facility] HospitalWBC Auto (Bld) [#/Vol]Ordered By: Jesus Gonzalez on 14-09-9632EEX (Bld) [#/Vol]9.6 10*3/uL3.8-11.6FFostoria City HospitalBasophils Auto (Bld) [#/Vol]Ordered By: Jesus Gonzalez on 28-49-4758Zuhvxwxcy (Bld) [#/Vol]0.1 10*3/uL0.0-0.2FFostoria City HospitalBasophils/100 WBC Auto (Bld) Ordered By: Jesus Gonzalez on 64-33-1131Kjrsjgufs/100 WBC (Bld)0.8 %.[facility] HospitalEosinophils Auto (Bld) [#/Vol]Ordered By: Jesus Gonzalez on 13-56-2544Uhyfusaxepo (Bld) [#/Vol]0.1 10*3/uL0.0-0.45[facility] HospitalEosinophils/100 WBC Auto (Bld)Ordered By: Jesus Gonzalez on 04-15-2023 Eosinophils/100 WBC (Bld)1.3 %.[facility] HospitalErythrocyte distribution width Auto (RBC) [Ratio]Ordered By: Jesus Gonzalez on 04-15-2023 Erythrocyte distribution width (RBC) [Ratio]15.8 %11.9-15.3FFostoria City HospitalFerritin [Mass/volume] in Serum or PlasmaOrdered By: Jesus Gonzalez on 67-35-3481Iyaptuhm [Mass/Vol]5.1 ng/mL11.0-306.8[facility] HospitalHematocrit Auto (Bld) [Volume fraction]Ordered By: Jesus Gonzalez on 55-91-1161Cyefahvqha (Bld) [Volume fraction]35.0 %34.0-46.4FFostoria City HospitalHemoglobin [Mass/volume] in BloodOrdered By: Jesus Gonzalez on 27-72-9199Bxjeseubao (Bld) [Mass/Vol]11.2 g/dL11.8-15.4FFostoria City HospitalIron [Mass/volume] in Serum or PlasmaOrdered By: Jesus Gonzalez on 98-97-2940Uufu [Mass/Vol]18 ug/oH51-717ReydjlcqaMercy Health Urbana Hospital Leukocytes [#/volume] corrected for nucleated erythrocytes in Blood by Automated counOrdered By: Jesus Gonzalez on 50-97-5846MPK corrected for nucl RBC Auto (Bld) [#/Vol]9.6 10*3/uL3.8-11.6FFostoria City HospitalLymphocytes Auto (Bld) [#/Vol]Ordered By: Jesus Gonzalez on 23-15-3151Ckvzkouqyii (Bld) [#/Vol]2.2 10*3/uL1.00-4.8[facility] HospitalLymphocytes/100 WBC Auto (Bld) Ordered By: Jesus Gonzalez on 58-56-0917Vxbgsyphdkb/100 WBC (Bld)23.3 %.[facility] HospitalH Auto (RBC) [Entitic mass]Ordered By: Jesus Gonzalez on 72-40-7590WTX (RBC) [Entitic mass]26.0 pg24.7-34.3FFostoria City HospitalMCHC Auto (RBC) [Mass/Vol]Ordered By: Jesus Gonzalez on 63-62-8351HPWS (RBC) [Mass/Vol]32.0 g/dL32.0-35.0[facility] HospitalMCV Auto (RBC) [Entitic vol]Ordered By: Jesus Gonzalez on 07-54-9263RFU (RBC) [Entitic vol]81.2 fL 80-100Mer[facility] HospitalMonocytes Auto (Bld) [#/Vol]Ordered By: Jesus Gonzalez on 34-33-1476Tfcbwkkhm (Bld) [#/Vol]0.7 10*3/uL0.0-0.8[facility] HospitalMonocytes/100 WBC Auto (Bld)Ordered By: Jesus Gonzalez on 30-47-7689Griemvjdb/100 WBC (Bld)7.7 %.[facility] Neutrophils Auto (Bld) [#/Vol]Ordered By: Jesus Gonzalez on 89-99-6690Pccijapgizu (Bld) [#/Vol]6.4 10*3/uL1.8-7.7FFostoria City HospitalNeutrophils/100 WBC Auto (Bld)Ordered By: Jesus Gonzalez on 91-11-9989Tazlhiorjng/100 WBC (Bld)66.9 %.[facility] HospitalNucleated erythrocytes [Presence] in Blood by Automated countOrdered By: Jesus Gonzalez on 25-31-8561Nvlkvaoaj RBC Auto Ql (Bld)0.4 /100{WBC}0-0.5FFostoria City HospitalPlatelet mean volume Auto (Bld) [Entitic vol]Ordered By: Jesus Carlos on 84-88-3492Evsyxiow mean volume (Bld) [Entitic vol]9.1 fL6.3-10.7FFostoria City Hospital Platelets Auto (Bld) [#/Vol]Ordered By: Jesus Carlos on 04-15-8902Ggqxhrucp (Bld) [#/Vol]427 10*3/mD597-885CudsefwhhMercy Health Urbana HospitalRBC Auto (Bld) [#/Vol]Ordered By: Jesus Carlos on 25-65-2499RCY (Bld) [#/Vol]4.31 10*6/uL 3.60-5.00Mer[facility] HospitalWBC Auto (Bld) [#/Vol]Ordered By: Jesus Gonzalez on 52-52-6253GXK (Bld) [#/Vol]9.6 10*3/uL3.8-11.6FFostoria City HospitalBNPon 05-08-8888Ktbllnsuigb peptide B (Bld) [Mass/Vol]173.0 pg/mL Normal<=450.0The [facility] CenterComment on above:Performed By: #### LACT #### [facility] [address] [place] [address] Dr. Ko Blas W MANUAL DIFFon 20-60-7939ZYKASDYY LYMPH #0.18 103/ulNormal The [facility] CenterComment on above:Performed By: #### ISAIAHMAN #### [facility] [address] [place] [address] Dr. Ko RogerYPICAL LYMPH %2 %NormalThe [facility]htabula County Medical CenterComment on above: Performed By: #### CBCMAN #### [facility] [address] [place] [address] Dr. Ko Gould #0.0 103/ulNormal0.0-0.3The [facility] CenterComment on above:Performed By: #### CBCMAN #### [facility] [address] [place] [address] Dr. Ko Gould %0 %Normal0-5The [facility] CenterComment on above:Performed By: #### CBCCHRISTIANO #### [facility] [address] [address] [address] Ko Martinez #0.00 103/ulNormal0.00-0.10The [facility] CenterComment on above:Performed By: #### CBCCHRISTIANO #### [facility] [address] [place] [address] Dr. Ko Martinez %0.0 %Critically low0.2-2.0The [facility] HospitalComment on above:Performed By: #### CBCCHRISTIANO #### [facility] [address] [place] [address] Dr. Ko Whaley #NormalThe [facility] HospitalComment on above:Performed By: #### NICOLETTE #### [facility] [address] [place] [address] Dr. Ko Whaley %NormalThe [facility] Medical CenterComment on above:Performed By: #### NICOLETTE #### [facility] [address] [place] [address] Dr. Ko StephenCORRECTED WBCNormal4.0-11.0The [facility] CenterComment on above: Performed By: #### NICOLETTE #### [facility] [address] [place] [address] Dr. Ko Kim #0.00 103/ulNormal0.00-0.70The [facility] CenterComment on above:Performed By: #### CBCCHRISTIANO #### [facility] [address] [place] [address] Dr. Ko Kim%0.0 %Critically low0.9-7.0The [facility] HospitalComment on above:Performed By: #### NICOLETTE #### [facility] [address] [place] [address] Dr. Ko StephenHCT32.8 %Critically low36.0-48.0The [facility] CenterComment on above:Performed By: #### CBCCHRISTIANO #### [facility] [address] [place] [address] Dr. Ko StephenHGB11.1 g/dlCritically low12.0-16.0[facility] HospitalComment on above:Performed By: #### NICOLETTE #### [facility] [address] [address] [address] Ko Palacios #0.18 103/ulCritically low1.20-3.80The [facility] Comment on above:Performed By: #### NICOLETTE #### [facility] [address] [address] [address] Ko Palacios%2.0 %Critically low20.5-60.0The [facility] CenterComment on above:Performed By: #### NICOLETTE #### [facility] [address] [place] [address] Dr. Ko TinocoH27.7 ckWvurxv43.7-34.0The [facility] CenterComment on above: Performed By: #### NICOLETTE #### [facility] [address] [place] [address] Dr. Ko TinocoHC33.8 g/boZdqayg53.9-35.2The [facility] CenterComment on above:Performed By: #### NICOLETTE #### [facility] [address] [place] [address] Dr. Ko TinocoV81.8 fMYbqxrl04.0-99.0The [facility] CenterComment on above: Performed By: #### NICOLETTE #### [facility] [address] [place] [address] Dr. Ko OsborneOCYTE #NormalThe [facility] Medical CenterComment on above: Performed By: #### NICOLETTE #### [facility] [address] [place] [address] Dr. Ko OsborneOCYTE %NormalThe [facility] Medical CenterComment on above: Performed By: #### NICOLETTE #### [facility] [address] [place] [address] Dr. Ko Connolly#0.09 103/ulCritically low0.30-0.80The [facility] Comment on above:Performed By: #### NICOLETTE #### [facility] [address] [address] [address] Ko Connolly%1.0 %Critically low1.7-12.0The [facility] CenterComment on above:Performed By: #### NICOLETTE #### [facility] [address] [address] [address] Ko OsullivanV9.8 fLNormal9.5-13.5The [facility] CenterComment on above: Performed By: #### NICOLETTE #### [facility] [address] [address] [address] Ko MijaresOCYTE #NormalSt. Francis HospitalComment on above:Performed By: #### NICOLETTE #### [facility] [address] [address] [address] Ko Meadows %NormalThe [facility]ville HospitalComment on above:Performed By: #### NICOLETTE #### [facility] [address] [address] [address] Ko StephenNRBCNormalThOhioHealth Southeastern Medical CenterComment on above:Performed By: #### NICOLETTE #### [facility] [address] [address] [address] Ko BoldenT375 103/gtMjvybu642-978Zkm [facility] CenterComment on above: Performed By: #### NICOLETTE #### [facility] [address] [place] [address] Dr. Ko StephenRBC4.01 106/ulCritically low4.20-5.40The [facility] CenterComment on above:Performed By: #### NICOLETTE #### [facility] [address] [place] [address] Dr. Ko StephenRDW13.5 %Fpefqr99.0-15.0The [facility] CenterComment on above: Performed By: #### NICOLETTE #### [facility] [address] [place] [address] Dr. Ko Sepulveda #8.55 103/ulCritically high1.40-6.50The [facility] on above:Performed By: #### NICOLETTE #### [facility] [address] [address] [address] Ko StephenSEG %95.0 %Critically high43.0-75.0The [facility] on above:Performed By: #### CBCMAN #### [facility] [address] [address] [address] Ko StephenWBC9.0 103/ulNormal4.0-11.0The [facility] Centerment on above: Performed By: #### CBCMAN #### [facility] [address] [place] [address] Dr. Ko StephenPOINT OF CARE GLUCOSEon 16-56-1510Qlzpolg [Mass/Vol]98 mg/dL Mmsxlj12-461Prd [facility] on above:Performed By: #### LACT #### [facility] [address] [place] [address] Dr. Ko StephenGlucose [Mass/Vol]158 mg/dLCritically wiqi29-428Xlk [facility] on above:Performed By: #### POCGLUC #### [facility] [address] [place] [address] Dr. Ko StephenPROF 14(COMP METB)on 73-41-8125Skjkrtu [Mass/Vol]3.7 g/dLNormal 3.4-5.0The [facility] on above:Performed By: #### LACT #### [facility] [address] [place] [address] Dr. Ko StephenAlbumin/Globulin [Mass ratio]1.2 {ratio}NormalThe [facility] on above:Performed By: #### LACT #### [facility] [address] [place] [address] Dr. Ko GarcesP [Catalytic activity/Vol]42 U/LCritically pvt21-263Miy [facility] on above:Performed By: #### LACT #### [facility] [address] [place] [address] Dr. Ko GarcesT [Catalytic activity/Vol]30 U/CJpnhkz22-64Kuw Julio C HospitalComment on above:Performed By: #### LACT #### [facility] [address] [address] [address] Ko Gatica gap [Moles/Vol]17.1 mmol/LNormalThe [facility] Comment on above:Performed By: #### LACT #### [facility] [address] [address] [address] Ko StephenAST [Catalytic activity/Vol]15 U/ZEerrwi49-90Mol [facility] CenterComment on above:Performed By: #### LACT #### [facility] [address] [address] [address] Ko StephenBilirubin [Mass/Vol]0.2 mg/dLNormal0.2-1.0The [facility] Comment on above:Performed By: #### LACT #### [facility] [address] [address] [address] Ko StephenCalcium [Mass/Vol]9.6 mg/dLNormal8.5-10.1[facility] Comment on above:Performed By: #### LACT #### [facility] [address] [address] [address] Ko StephenChloride [Moles/Vol]100 mmol/QIdsfxw32-379GuaSt. Francis Hospital Comment on above:Performed By: #### LACT #### [facility] [address] [address] [address] Ko StephenCO2 [Moles/Vol]22.3 mmol/QVyoohl24.0-32.0[facility] Comment on above:Performed By: #### LACT #### [facility] [address] [address] [address] Ko StephenCreatinine [Mass/Vol]1.10 mg/dLCritically high0.55-1.02The [facility] CenterComment on above:Performed By: #### LACT #### [facility] [address] [address] [address] Connell ChangEGFR-AF INDONESIAN>60Normal>=60The [facility] CenterComment on above:Performed By: #### LACT #### [facility] [address] [address] [address] Ko HopsonGFR-NON AF ITFOITZQ02 mL/min/1.62a0Glqlqwozjw low>=60The [facility] CenterComment on above:Performed By: #### LACT #### [facility] [address] [address] [address] Ko StephenGlobulin (S) [Mass/Vol]3.1 g/dLNoPomerene HospitalComment on above:Performed By: #### LACT #### [facility] [address] [address] [address] Ko StephenGlucose [Mass/Vol]180 mg/dLCritically eiwn84-425Pxx [facility] CenterComment on above:Performed By: #### LACT #### [facility] [address] [address] [address] Ko StephenPotassium [Moles/Vol]3.4 mmol/LCritically low3.5-5.1The [facility] CenterComment on above:Performed By: #### LACT #### [facility] [address] [address] [address] Ko StephenProtein [Mass/Vol]6.8 g/dLNormal6.4-8.2The [facility] Comment on above:Performed By: #### LACT #### [facility] [address] [address] [address] Ko StephenSodium [Moles/Vol]136 mmol/ASxyyeu408-885Vbz [facility] Comment on above:Performed By: #### LACT #### [facility] [address] [address] [address] Ko StephenUrea nitrogen [Mass/Vol]19.0 mg/dLCritically high7.0-18.0The [facility] CenterComment on above:Performed By: #### LACT #### [facility] [address] [address] [address] Ko StephenUrea nitrogen/Creatinine [Mass ratio]17.3 mg/mgNoPomerene HospitalComment on above:Performed By: #### LACT #### [facility] [address] [place] [address] Dr. Ko Jean 04-64-0968Trxpcjxuwgh peptide B (Bld) [Mass/Vol]291.0 pg/mL Normal<=450.0The [facility] Centerment on above:Performed By: #### CMP, CMADM, BNP #### [facility] [address] [place] [address] Dr. oK Vann PERRY ADMITon 09-73-6130UP [Catalytic activity/Vol]286 U/L Critically obie22-904Blc [facility] Centerment on above:Performed By: #### CMP, CMADM, BNP #### [facility] [address] [place] [address] Dr. Ko Olivares.MB [Mass/Vol]4.51 ng/mLCritically high<=3.60The [facility] Centerment on above:Performed By: #### CMP, CMADM, BNP #### [facility] [address] [place] [address] Dr. Ko ValderramaTROP5.0 pg/mLNormal4.0-51.3The [facility] Centerment on above:Result Comment: CUT-OFF POINTS HAVE BEEN ESTABLISHED BASED ON THE FOURTH UNIVERSAL DEFINITIONS OF MYOCARDIAL INFARCTION. THE UPPER REFERENCE LIMIT (URL) OF TROPONIN, DEFINED THE 99TH PERCENTILE OF cTnI DISTRIBUTION IN A REFERENCE POPULATION, HAS BEEN CONFIRMED THE DECISION THRESHOLD FOR AL DIAGNOSIS.Performed By: #### CMP, CMADM, BNP #### [facility] [address] [place] [address] Dr. Ko JohnsO184 ng/mLCritically high9-82The [facility] Centerment on above:Performed By: #### CMP, CMADM, BNP #### [facility] [address] [place] [address] Dr. Ko Blas AUTO DIFFon 52-85-2270TRBK #0.0 103/ulNormal0.0-0.1The [facility] Centerment on above:Performed By: #### CBC #### [facility] [address] [place] [address] Dr. Yilan ChangBasophils/100 WBC (Bld)0.2 %Normal0.2-2.0The [facility] Comment on above:Performed By: #### CBC #### [facility] [address] [place] [address] Dr. Ko Noble #0.0 103/ulNormal0.0-0.7The [facility] CenterComment on above: Performed By: #### CBC #### [facility] [address] [place] [address] Dr. Ko Hopsonosinophils/100 WBC (Bld)0.0 %Critically low0.9-7.0The [facility] CenterComment on above:Performed By: #### CBC #### [facility] [address] [place] [address] Dr. Ko Hopsonrythrocyte distribution width (RBC) [Ratio]13.7 %Sfkvbv78.0-15.0 The [facility] CenterComment on above:Performed By: #### CBC #### [facility] [address] [place] [address] Dr. Ko StephenHematocrit (Bld) [Volume fraction]31.8 %Critically low36.0-48.0 The [facility] CenterComment on above:Performed By: #### CBC #### [facility] [address] [place] [address] Dr. Ko StephenHemoglobin (Bld) [Mass/Vol]11.1 g/dLCritically low12.0-16.0The [facility] CenterComment on above:Performed By: #### CBC #### [facility] [address] [place] [address] Dr. Ko Mendoza #0.11 10e3/ulCritically high0.00-0.03The [facility] Comment on above:Performed By: #### CBC #### [facility] [address] [place] [address] Dr. Ko Mendoza %1.0 %Critically high0.0-0.5The [facility] CenterComment on above:Performed By: #### CBC #### [facility] [address] [address] [address] Ko Chavira #1.8 103/ulNormal1.2-3.8The [facility] CenterComment on above:Performed By: #### CBC #### [facility] [address] [address] [address] Ko Daiglemphocytes/100 WBC (Bld)16.2 %Critically low20.5-60.0The [facility] CenterComment on above:Performed By: #### CBC #### [facility] [address] [address] [address] Ko GilesUAL DIFF REQNONormalThe [facility] CenterComment on above: Performed By: #### CBC #### [facility] [address] [place] [address] Dr. Ko Tinoco (RBC) [Entitic mass]28.2 bzFigoiv15.7-34.0The [facility] CenterComment on above:Performed By: #### CBC #### [facility] [address] [place] [address] Dr. Ko Tinoco (RBC) [Mass/Vol]34.9 g/nZRpdvei47.9-35.2The [facility] Centerment on above:Performed By: #### CBC #### [facility] [address] [place] [address] Dr. Ko Tinoco (RBC) [Entitic vol]80.7 fLCritically low81.0-99.0The [facility] Centerment on above:Performed By: #### CBC #### [facility] [address] [place] [address] Dr. Ko Paredes #0.7 103/ulNormal0.3-0.8The [facility] CenterComment on above:Performed By: #### CBC #### [facility] [address] [place] [address] Dr. Ko Rennerocytes/100 WBC (Bld)6.3 %Normal1.7-12.0The [facility] Comment on above:Performed By: #### CBC #### [facility] [address] [address] [address] Ko Hwang #8.4 103/ulCritically high1.4-6.5The [facility] Comment on above:Performed By: #### CBC #### [facility] [address] [place] [address] Dr. Ko Hernandezutrophils/100 WBC (Bld)76.3 %Critically high43.0-75.0The [facility] CenterComment on above:Performed By: #### CBC #### [facility] [address] [place] [address] Dr. Ko StephenPlatelet mean volume (Bld) [Entitic vol]9.5 fLNormal9.5-13.5The [facility] CenterComment on above:Performed By: #### CBC #### [facility] [address] [place] [address] Dr. Ko StephenPLT384 103/tgJkscel022-367Djx [facility] CenterComment on above: Performed By: #### CBC #### [facility] [address] [place] [address] Dr. Ko StephenRBC3.94 106/ulCritically low4.20-5.40The [facility] CenterComment on above:Performed By: #### CBC #### [facility] [address] [place] [address] Dr. Ko StephenWBC11.0 103/ulNormal4.0-11.0The [facility] CenterComment on above:Performed By: #### CBC #### [facility] [address] [place] [address] Dr. Ko StephenCULTURE URINEon 21-60-8885QEGWOSA URINECulture Observations: NO GROWTH.NormalThe [facility] CenterComment on above:Performed By: #### URCX #### [facility] [address] [place] [address] Dr. Ko StephenCovid-19 PCR (CVDTBH)on 69-95-7669RDHH-CoV-2 (COVID-19) RNA RADHA+probe Ql (Unsp spec)Not detectedNormalNOT DETECTEDThe [facility] Comment on above:Result Comment: When diagnostic testing [...] for this test is supported by the Director [employer] of Health and Human Service's declaration that [...] longer be used).Performed By: #### CVDTBH #### [facility] [address] [place] [address] Dr. Ko StephenLACTATE/LACTIC ACIDon 99-72-4728Rjcnbzb [Moles/Vol]1.7 mmol/L Normal0.4-1.9The [facility] CenterComment on above:Performed By: #### LACT #### [facility] [address] [place] [address] Dr. Ko StephenPOINT OF CARE GLUCOSEon 43-48-3845Jvefnsf [Mass/Vol]139 mg/dL Critically metu78-958VsuSt. Francis HospitalComment on above:Performed By: #### POCGLUC #### [facility] [address] [place] [address] Dr. Ko StephenGlucose [Mass/Vol]99 mg/qBOkowle47-637VfzSt. Francis Hospital Comment on above:Performed By: #### LACT #### [facility] [address] [place] [address] Dr. Ko StephenPROF 14(COMP METB)on 70-11-5538Ehssqbp [Mass/Vol]3.9 g/dLNormal 3.4-5.0The Julio C HospitalComment on above:Performed By: #### CMP, CMADM, BNP #### [facility] [address] [address] [address] Ko StephenAlbumin/Globulin [Mass ratio]1.3 {ratio}NormalThe [facility] CenterComment on above:Performed By: #### CMP, CMADM, BNP #### [facility] [address] [place] [address] Dr. Ko Aguilar [Catalytic activity/Vol]43 U/LCritically gsk42-068Lqh [facility] CenterComment on above:Performed By: #### CMP, CMADM, BNP #### [facility] [address] [place] [address] Dr. Ko Diggs [Catalytic activity/Vol]34 U/MFxclcj70-28Gzv [facility] CenterComment on above:Performed By: #### CMP, CMADM, BNP #### [facility] [address] [place] [address] Dr. Ko Gatica gap [Moles/Vol]16.2 mmol/LNormalThe [facility] Comment on above:Performed By: #### CMP, CMADM, BNP #### [facility] [address] [place] [address] Dr. Ko Cortez [Catalytic activity/Vol]18 U/EGdmgjs63-10Ktn [facility] on above:Performed By: #### CMP, CMADM, BNP #### [facility] [address] [place] [address] Dr. Ko StephenBilirubin [Mass/Vol]0.2 mg/dLNormal0.2-1.0The [facility] Comment on above:Performed By: #### CMP, CMADM, BNP #### [facility] [address] [place] [address] Dr. Ko StephenCalcium [Mass/Vol]9.4 mg/dLNormal8.5-10.1[facility] Comment on above:Performed By: #### CMP, CMADM, BNP #### [facility] [address] [place] [address] Dr. Yilan ChangChloride [Moles/Vol]99 mmol/JRsjogg01-361DslSt. Francis Hospital Comment on above:Performed By: #### CMP, CMADM, BNP #### [facility] [address] [address] [address] Ko StephenCO2 [Moles/Vol]25.7 mmol/RHpjxcb55.0-32.0The [facility] Comment on above:Performed By: #### CMP, CMADM, BNP #### [facility] [address] [address] [address] Ko StpehenCreatinine [Mass/Vol]1.10 mg/dLCritically high0.55-1.02St. Francis HospitalComment on above:Performed By: #### CMP, CMADM, BNP #### [facility] [address] [address] [address] Connell ChangEGFR-AF INDONESIAN>60Normal>=60The [facility] CenterComment on above:Performed By: #### CMP, CMADM, BNP #### [facility] [address] [address] [address] Ko HopsonGFR-NON AF ZGOGQVJJ20 mL/min/1.57r1Zccpcynotn low>=60The [facility] CenterComment on above:Performed By: #### CMP, CMADM, BNP #### [facility] [address] [address] [address] Ko StephenGlobulin (S) [Mass/Vol]2.9 g/dLNormalThe [facility] CenterComment on above:Performed By: #### CMP, CMADM, BNP #### [facility] [address] [address] [address] Ko StephenGlucose [Mass/Vol]97 mg/mVYeospz65-339MbuSt. Francis Hospital Comment on above:Performed By: #### CMP, CMADM, BNP #### [facility] [address] [address] [address] Ko StephenPotassium [Moles/Vol]3.9 mmol/LNormal3.5-5.1The [facility] Comment on above:Performed By: #### CMP, CMADM, BNP #### [facility] [address] [address] [address] Ko StephenProtein [Mass/Vol]6.8 g/dLNormal6.4-8.2The [facility] Comment on above:Performed By: #### CMP, CMADM, BNP #### [facility] [address] [address] [address] Ko Mirandaum [Moles/Vol]137 mmol/FXfzogk199-679Mbb [facility] Comment on above:Performed By: #### CMP, CMADM, BNP #### [facility] [address] [address] [address] Ko Villalba nitrogen [Mass/Vol]16.0 mg/dLNormal7.0-18.0The [facility] CenterComment on above:Performed By: #### CMP, CMADM, BNP #### [facility] [address] [place] [address] Dr. Ko Villalba nitrogen/Creatinine [Mass ratio]14.5 mg/mgNormalThe [facility] CenterComment on above:Performed By: #### CMP, CMADM, BNP #### [facility] [address] [place] [address] Dr. Ko Meadows RANDOM W/MICROSCOPICon 90-50-7413QGMQERGIFJRX SEENNormalNONE SEENSt. Francis HospitalComment on above:Performed By: #### LACT #### [facility] [address] [place] [address] Dr. Ko Wayneirubin Ql (U)NegativeNormalNEGATIVEThe [facility] Comment on above:Performed By: #### LACT #### [facility] [address] [place] [address] Dr. Ko Carney SEENNormalNONE SEENSt. Francis HospitalComment on above:Performed By: #### LACT #### [facility] [address] [place] [address] Dr. Ko Raglandarity (U)CLEARNormalCLEARThe [facility] CenterComment on above: Performed By: #### LACT #### [facility] [address] [address] [address] Ko Hernandezlor (U)LT. YELLOWNormalYELLOWSt. Francis HospitalComment on above:Performed By: #### LACT #### [facility] [address] [address] [address] Ko StephenCrystals LM Nom (Urine sed)NONE SEENNormalNONE SEENSt. Francis HospitalComment on above:Performed By: #### LACT #### [facility] [address] [address] [address] Connell ChangEpithelial cells LM Ql (Urine sed)NONE SEENNormalNONE SEEN /RARE The [facility] CenterCommclaren lapeer region on above:Performed By: #### LACT #### [facility] [address] [place] [address] Dr. Ko StephenGlucose Ql (U)500 mg/dlAbuniversity health lakewood medical centeralNEGSelect Medical [facility] on above:Performed By: #### LACT #### [facility] [address] [address] [address] Ko StephenHemoglobin Ql (U)TRACE-INTACTAbnormalNEGParkview Health Montpelier HospitalCommclaren lapeer region on above:Performed By: #### LACT #### [facility] [address] [address] [address] Ko StephenKetones Ql (U)NegativeNormalNEGATIVESt. Francis HospitalCommclaren lapeer region on above:Performed By: #### LACT #### [facility] [address] [address] [address] Ko StephenLEUKOCYTESNegativeNormalNEGATIVESt. Francis HospitalCommclaren lapeer region on above:Performed By: #### LACT #### [facility] [address] [address] [address] Ko StephenMUCOUSNONE SEENNormalNONE SEENSt. Francis HospitalComment on above:Performed By: #### LACT #### [facility] [address] [address] [address] Ko StephenNitrite Ql (U)NegativeNormalNEGATIVESt. Francis HospitalComment on above:Performed By: #### LACT #### [facility] [address] [place] [address] Dr. Ko StephenpH (U)5.5 [pH]Normal5-9The [facility] CenterComment on above: Performed By: #### LACT #### [facility] [address] [place] [address] Dr. Ko StephenVadldAOZ8-8Owupno8-8Swf [facility] CenterComment on above:Performed By: #### LACT #### [facility] [address] [place] [address] Dr. Ko StephenSPEC GRAVITY<=1.787Gvzbugca9.005-<=1.025The [facility] Comment on above:Performed By: #### LACT #### [facility] [address] [place] [address] Dr. oK StephenUA PROTEINNegativeNormalNEGATIVE/ TRACEThe [facility] Comment on above:Performed By: #### LACT #### [facility] [address] [place] [address] Dr. Ko Bensonbilinogen Qn (U)0.2 {Rich'U}/dLNormal0.2 - 1.0The [facility] on above:Performed By: #### LACT #### [facility] [address] [place] [address] Dr. Ko StephenWBCNONE SEENNormalNONE SEENThe [facility] CenterComment on above: Performed By: #### LACT #### [facility] [address] [place] [address] Dr. Ko StephenXR CHEST 2 Von 40-80-7999SV CHEST 2 VEXAMINATION: XR CHEST 2 V [...] Electronically authenticated by: LIAT MARISCAL Date: 2022-10-10 17:23[facility] HospitalXR wrist RT min 3V*on 80-57-2348CI wrist RT min 3V*[facility] [employer] Other XR wrist RT min 3V*[facility] [employer] Other XR wrist RT min 3V*April Lemons [facility] [employer] Other XR wrist RT min 3V*VIVIEN Giron [address]Kazgw [employer] [facility] Other XR wrist RT min 3V*[place] [employer] [facility] Other XR wrist RT min 3V*SignedM[place] [employer] [facility] Other XR wrist RT min 3V*Patient: Kourtney Novak MR#: [id number] [employer] [facility] Other XR wrist RT min 3V*[id number] [employer] [facility] Other XR wrist RT min 3V*: 1975 Acct:[id number] [place] [employer] [facility] Other XR wrist RT min 3V*Age/Sex: 46 / F ADM Date: 09/24/22 [place] [employer] [facility] Other XR wrist RT min 3V*Loc: [facility] Room: Type: [facility] [employer] Other XR wrist RT min 3V*Attending Dr: Elyssa Gomes MD [place] [employer] Other XR wrist RT min 3V*Copies to: Elyssa Gomes MD [employer] Other XR wrist RT min 3V*Ordering Provider: Elyssa Gomes MDMills River [facility] Other XR wrist RT min 3V*Date of Service: 09/24/22[place] [employer] Other XR wrist RT min 3V* XR/XR wrist RT min 3V*: Osteochondrosis of lunate of right wristMills River [facility] Other XR wrist RT min 3V*RIGHT WRIST - 4 viewsMills River [facility] Other XR wrist RT min 3V*CLINICAL HISTORY: Follow-up right wrist denervation and radial core decompressionMills River [facility] Other XR wrist RT min 3V*COMPARISON: None[employer] Other XR wrist RT min 3V*FINDINGS:[employer] Other XR wrist RT min 3V*No focal soft tissue abnormality. 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 Triquetral fracture is unchanged. Mild degenerative changes without bony erosion.[employer] Other XR wrist RT min 3V* XR/XR wrist RT min 3V*[employer] Other XR wrist RT min 3V*IMPRESSION:[employer] Other XR wrist RT min 3V*NO SIGNIFICANT CHANGE IN WRIST FINDINGS.[employer] Other XR wrist RT min 3V*Impression dictated by: Rainer Martinez Jr., D.OEstefany09/24/2022 4:36 [facility] [employer] Other XR wrist RT min 3V*Dictation Location: [place] [address] [employer] Other XR wrist RT min 3V*Transcribed By: PWS 09/24/22 [facility] [employer] Other XR wrist RT min 3V*Dictated By: Rainer Martinez Jr, DO 09/24/22 [facility] Other [facility] RT min 3V*Signed By:[employer] Other XR wrist RT min 3V*09/24/22 [facility] [employer] Other Urine culture routineOrdered By: Jesus Gonzalez on 50-27-5631Dpjuusdt identified Cx Nom (U)2 DaysMercy Health Urbana Hospital Automated erythrocytes count in urine sediment (number/area)Ordered By: Jesus Gonzalez on 55-98-1082PGX Auto (Urine sed) [#/Area]3-4 [HPF]0-4FFostoria City HospitalAutomated leukocytes count in urine sediment (number/area)Ordered By: Jesus Gonzalez on 14-16-3800WKA Auto (Urine sed) [#/Area]None seen [HPF]0-4 [facility] HospitalBilirubin Test strip Ql (U)Ordered By: Jesus Gonzalez on 37-98-6659Oroxsbmhn Ql (U)NegativeNegativeMercy Health Urbana HospitalColor Auto (U)Ordered By: Jesus Gonzalez on 29-83-3416Uakvv (U)YellowYellow [facility]ana HospitalKetones Auto test strip (U) [Mass/Vol]Ordered By: Jesus Gonzalez on 46-98-1788Yxpwxtc (U) [Mass/Vol]NegativeNegativeMercy Health Urbana HospitalLaboratory - UrinalysisOrdered By: Jesus Gonzalez on 98-76-3889Donjmou casts LM Ql (Urine sed)None seen [LPF]0-8Mer[facility] Urbana HospitalNitrite Test strip Ql (U)Ordered By: Jesus Gonzalez on 07-29-2022 Nitrite Ql (U)NegativeNegThe Surgical Hospital at SouthwoodsProtein Auto test strip (U) [Mass/Vol]Ordered By: Jesus Gonzalez on 02-61-8161Qzdrecu (U) [Mass/Vol] NegativeNegativeDunlap Memorial Hospitalpecific gravity Auto test strip (U) [Rel density]Ordered By: Jesus Gonzalez on 53-94-5421Nnpmptrg gravity (U) [Rel density]1.0131.001-1.030Dunlap Memorial Hospitalquamous epithelial cells detection in urine sediment by light microscopyOrdered By: Jesus Gonzalez on 25-21-3822Vuheqbfhjt cells.squamous LM Ql (Urine sed)None seen [HPF]0-2FFostoria City HospitalUrine bacteria detection by automated methodOrdered By: Jesus Gonzalez on 04-52-0690Ibjshqxb Auto Ql (U)None seenNone SeenMercy Health Urbana HospitalUrine clarity by refractometry automated Ordered By: Jesus Gonzalez on 29-66-8181Xpomymr Refractometry automated (U)Clear ClearMercy Health Urbana HospitalUrine culture routineOrdered By: Jesus Gonzalez on 36-37-9382Yvzrzccf identified Cx Nom (U)2 DaysMercy Health Urbana HospitalUrine glucose measurement by automated test strip (mass/volume)Ordered By: Jesus Gonzalez on 99-51-2479Lxdqsby Auto test strip (U) [Mass/Vol]>=1000 mg/dL NormalMercy Health Urbana HospitalUrine hemoglobin detection by automated test stripOrdered By: Jesus Gonzalez on 45-43-3347Zpnrnrvrzq Auto test strip Ql (U) TraceNegativeMercy Health Urbana HospitalUrine leukocyte esterase detection by automated test stripOrdered By: Jesus Gonzalez on 15-93-7200Zvvxxvijb esterase Auto test strip Ql (U)NegativeNegativeMercy Health Urbana Hospital Urobilinogen Auto test strip (U) [Mass/Vol]Ordered By: Jesus Gonzalez on 07-29-2022 Urobilinogen (U) [Mass/Vol]Normal mg/dLNormalMercy Health Urbana HospitalpH Auto test strip (U)Ordered By: Jesus Gonzalez on 25-22-2133tU (U)6.0 [pH]5.0-9.0 [facility] HospitalAlbumin [Mass/volume] in Serum or PlasmaOrdered By: Jesus Gonzalez on 96-59-7669Ygoxmnx [Mass/Vol]4.0 g/dL3.2-5.5FFostoria City HospitalBasophils Auto (Bld) [#/Vol]Ordered By: Jesus Gonzalez on 28-17-5435Beoamhjer (Bld) [#/Vol]0.0 10*3/uL0.0-0.2FFostoria City HospitalBasophils/100 WBC Auto (Bld)Ordered By: Jesus Gonzalez on 05-01-2022 Basophils/100 WBC (Bld)0.8 %.[facility]ana HospitalBlood hemoglobin measurement (mass/volume)Ordered By: Jesus Gonzalez on 81-90-5542Vfrykagdhx (Bld) [Mass/Vol]12.4 g/dL11.8-15.4FFostoria City HospitalBlood leukocytes automated count (number/volume)Ordered By: Jesus Gonzalez on 08-68-8481XRQ (Bld) [#/Vol]6.0 10*3/uL4.5-11.0Mer[facility] Health Urbana HospitalCholesterol [Mass/volume] in Serum or PlasmaOrdered By: Jesus Gonzalez on 10-57-4218Dwluiqmoyki [Mass/Vol]189 mg/nI702-256LrrcvmymhMercy Health Urbana HospitalComment on above: Chol less than 200 mg/dl low risk Chol 201-239 mg/dl borderline risk Chol 240 mg/dl and greater high riskChol less than 200 mg/dl low riskChol 201- 239 mg/dl borderline riskChol 240 mg/dl and greater high riskCholesterol in LDL Calc [Mass/Vol]Ordered By: Jesus Gonzalez on 77-56-6792Dxnldlbmtey in LDL [Mass/Vol]92 mg/dL0-100Mer[facility] Health Urbana HospitalComment on above:LDL ATP III CLASSIFICATION LDL less than 100 mg/dL Optimal LDL 100-129 mg/dL Near or above optimal LDL 130-159 mg/dL Borderline high LDL 160-189 mg/dL High LDL greater than 189 mg/dL Very highLDL ATP III CLASSIFICATIONLDL less than 100 mg/dL OptimalLDL 100-129 mg/dL Near or above ecyrdpuOPN746-687 mg/dL Borderline highLDL 160-189 mg/dL HighLDL greater than 189 mg/dL Very highCholesterol in VLDL Calc [Mass/Vol]Ordered By: Jesus Gonzalez on 39-87-8360Bgknatwezjo in VLDL [Mass/Vol]19 mg/dLMercy Health Urbana HospitalCreatinine and Glomerular filtration rate.predicted panel (S/P/Bld)Ordered By: Jesus Gonzalez on 05-01-2022 Creatinine [Mass/Vol]1.06 mg/dL0.44-1.03[facility] Eosinophils Auto (Bld) [#/Vol]Ordered By: Jesus Gonzalez on 97-28-2199Ddsoldbhdxu (Bld) [#/Vol]0.1 10*3/uL0.0-0.45Mer[facility] Health Urbana HospitalEosinophils/100 WBC Auto (Bld)Ordered By: Jesus Gonzalez on 58-57-7635Rsctkjsebbq/100 WBC (Bld)1.2 %.[facility]rbana HospitalErythrocyte distribution width Auto (RBC) [Ratio]Ordered By: Jesus Gonzalez on 44-51-1555Parphlfdbus distribution width (RBC) [Ratio]13.7 %11.9-15.3FFostoria City HospitalEstimated glomerular filtration rate (GFR) non- AmericanOrdered By: Jesus Gonzalez on 05-01-2022 GFR/1.73 sq M.predicted among non-blacks MDRD (S/P/Bld) [Vol rate/Area]56 mL/Min [facility]rbana HospitalGlobulin Calc (S) [Mass/Vol]Ordered By: Jesus Gonzalez on 90-27-0968Yhkysija (S) [Mass/Vol]2.3 g/dLMercy Health Urbana HospitalGlucose mean value [Mass/volume] in Blood Estimated from glycated hemoglobinOrdered By: Jesus Gonzalez on 42-22-8914Badtuvi glucose Estimated from glycated hemoglobin (Bld) [Mass/Vol]117 mg/dLMercy Health Urbana Hospital Hematocrit Auto (Bld) [Volume fraction]Ordered By: Jesus Gonzalez on 05-01-2022 Hematocrit (Bld) [Volume fraction]38.4 %34.0-46.4FFostoria City HospitalHemoglobin A1c percentageOrdered By: Jesus Gonzalez on 81-15-6708WuD2h (Bld) [Mass fraction]5.7 %4.3-5.6FFostoria City HospitalComment on above: Increased risk for diabetes: 5.7 - 6.4 diabetes: >6.4 glycemic control for adults with diabetes: <7.0Increased risk for diabetes: 5.7 - 6.4diabetes: >6.4glycemic control for adults with diabetes: <7.0Iron [Mass/volume] in Serum or PlasmaOrdered By: Jesus Gonzalez on 64-52-8711Kzlf [Mass/Vol]48 ug/wA54-436SqwvhbcpqMercy Health Urbana HospitalLaboratory - Chemistry and Chemistry - challengeOrdered By: Jesus Gonzalez on 09-69-5113Ubihbuycwcx peptide B (Bld) [Mass/Vol]7.0 pg/mL5-100[facility] Laboratory - Hematology and Cell countsOrdered By: Jesus Gonzalez on 05-01-2022 Nucleated RBC/100 WBC (Bld) [Ratio]0.0 %0-0.5FFostoria City Hospital Lymphocytes Auto (Bld) [#/Vol]Ordered By: Jesus Gonzalez on 72-68-2031Qqcsbsgpuus (Bld) [#/Vol]1.4 10*3/uL1.00-4.8Mer[facility] Health Urbana HospitalLymphocytes/100 WBC Auto (Bld)Ordered By: Jesus Gonzalez on 27-35-6306Xtlncwercgk/100 WBC (Bld) 23.0 %.[facility] HospitalH Auto (RBC) [Entitic mass]Ordered By: Jesus Gonzalez on 26-89-4766FOL (RBC) [Entitic mass]28.9 pg24.7-34.3FFostoria City HospitalMCHC Auto (RBC) [Mass/Vol]Ordered By: Jesus Gonzalez on 33-59-1871SRXP (RBC) [Mass/Vol]32.4 g/dL32.0-35.0Mer[facility] Health Urbana HospitalMCV Auto (RBC) [Entitic vol]Ordered By: Jesus Gonzalez on 77-93-1818ZXQ (RBC) [Entitic vol]89.1 lU31-770AmvdcjwglMercy Health Urbana HospitalMonocytes Auto (Bld) [#/Vol]Ordered By: Jesus Gonzalez on 07-24-2063Lnykewzni (Bld) [#/Vol]0.6 10*3/uL 0.0-0.8Mer[facility]ana HospitalMonocytes/100 WBC Auto (Bld)Ordered By: Jesus Gonzalez on 27-55-1501Oldeicrwd/100 WBC (Bld)9.1 %.[facility]rbana HospitalNeutrophils Auto (Bld) [#/Vol]Ordered By: Jesus Gonzalez on 05-01-2022 Neutrophils (Bld) [#/Vol]4.0 10*3/uL1.8-7.7FFostoria City Hospital Neutrophils/100 WBC Auto (Bld)Ordered By: Jesus Gonzalez on 05-01-2022 Neutrophils/100 WBC (Bld)65.9 %.[facility]ana HospitalNo Panel InformationOrdered By: Jesus Gonzalez on 09-45-7006Hyjzprqoc GFR () > 60 mL/MinMercy Health Urbana HospitalComment on above:GFR estimated reference range: According to KDOQI guidelines, <60 ml/min/1.73m2 is sufficient todiagnose a patient with chronic kidney disease.Pharmacy Creatinine Clearance (ChemN/[facility] HospitalPlatelet mean volume Auto (Bld) [Entitic vol]Ordered By: Jesus Gonzalez on 85-93-1686Ccolvkhi mean volume (Bld) [Entitic vol]8.5 fL6.3-10.7FFostoria City HospitalPlatelets Auto (Bld) [#/Vol]Ordered By: Jesus Gonzalez on 64-49-1634Cetmsnsbc (Bld) [#/Vol]385 10*3/uL 150-450Mer[facility] Urbana HospitalProtein [Mass/volume] in Serum or Plasma Ordered By: Jesus Gonzalez on 11-13-5801Steaezq [Mass/Vol]6.3 g/dL6.1-7.9Mer[facility] Urbana HospitalRBC Auto (Bld) [#/Vol]Ordered By: Jesus Gonzalez on 20-73-8515YQV (Bld) [#/Vol]4.31 10*6/uL3.60-5.00Dunlap Memorial Hospitalerum or plasma alanine aminotransferase measurement without P-5'-P (enzymatic activiOrdered By: Jesus Gonzalez on 51-46-7443RFM No additional P-5'-P [Catalytic activity/Vol]22 U/M61-71OxyoolfilDunlap Memorial Hospitalerum or plasma albumin/globulin mass ratioOrdered By: Jesus Gonzalez on 05-01-2022 Albumin/Globulin [Mass ratio]1.7 {ratio}Dunlap Memorial Hospitalerum or plasma alkaline phosphatase measurement (enzymatic activity/volume)Ordered By: Jesus Gonzalez on 78-84-0151VOV [Catalytic activity/Vol]52 U/Y87-97JvqjjaxylDunlap Memorial Hospitalerum or plasma aspartate aminotransferase measurement (enzymatic activity/volume)Ordered By: Jesus Gonzalez on 29-02-5196ZVB [Catalytic activity/Vol]17 U/K32-45BulfnmbsqDunlap Memorial Hospitalerum or plasma calcium measurement (mass/volume)Ordered By: Jesus Gonzalez on 80-42-7533Agdscih [Mass/Vol] 9.5 mg/dL8.2-10.2FUC [facility] Chester Hospitalerum or plasma chloride measurement (moles/volume)Ordered By: Jesus Gonzalez on 87-31-0345Kwjioaiw [Moles/Vol]100 mmol/Y09-471UhnmngtahDunlap Memorial Hospitalerum or plasma glucose measurement (mass/volume)Ordered By: Jesus Gonzalez on 37-76-1157Pjzonuu [Mass/Vol]96 mg/vL18-289CjhlkmtadMercy Health Urbana HospitalComment on above:ADA recommended reference range Random Glucose [...] (HDL) cholesterol measurementOrdered By: Jesus Gonzalez on 46-38-1604Ckggcbvxqcu in HDL [Mass/Vol]78 mg/pV09-63EciqgjqoxMercy Health Urbana HospitalComment on above:HDL CHOL ATP-III CLASSIFICATION Cardiovascular Risk HDL > or equal to 60 mg/dL LOW HDL < 40 mg/dL HIGHHDL CHOL ATP-III CLASSIFICATION Cardiovascular RiskHDL > or equal to 60 mg/dL LOWHDL < 40 mg/dL HIGHSerum or plasma potassium measurement (moles/volume)Ordered By: Jesus Gonzalez on 31-95-8933Wozkxdoiq [Moles/Vol]4.2 mmol/L3.5-5.1FUC West Chester Hospitalerum or plasma sodium measurement (moles/volume)Ordered By: Jesus Gonzalez on 94-12-2558Rllyfz [Moles/Vol]134 mmol/L 136-146Dunlap Memorial Hospitalerum or plasma thyroxine (T4) measurement (mass/volume)Ordered By: Jesus Gonzalez on 93-00-2240U0 [Mass/Vol]9.20 ug/dL5.39-11.82Dunlap Memorial Hospitalerum or plasma total bilirubin measurement (mass/volume)Ordered By: Jesus Gonzalez on 54-22-2817Bxbzpaaap [Mass/Vol]0.4 mg/dL0.3-1.2FUC [facility] Chester Hospitalerum or plasma total carbon dioxide measurement (moles/volume)Ordered By: Jesus Gonzalez on 05-01-2022 CO2 [Moles/Vol]24.2 mmol/L22.0-30.0Dunlap Memorial Hospitalerum or plasma total cholesterol/high density lipoprotein (HDL) cholesterol mass rat Ordered By: Jesus Gonzalez on 99-31-5890Owwmcynptxg.total/Cholesterol in HDL [Mass ratio]2.4 {ratio}<5.0Dunlap Memorial Hospitalerum or plasma urea nitrogen measurement (mass/volume)Ordered By: Jesus Gonzalez on 46-46-0324Yfii nitrogen [Mass/Vol]14 mg/dL9-23Mer[facility] Health Urbana HospitalTSH DL <= 0.005 mIU/L QnOrdered By: Jesus Gonzalez on 66-37-1782JBD Qn3.07 m[IU]/L0.45-5.33 [facility] HospitalTriglyceride [Mass/volume] in Serum or Plasma Ordered By: Jesus Gonzalez on 17-34-2788Flnwggomqvde [Mass/Vol]97 mg/qO32-270 [facility] HospitalComment on above:TRIG ATP III CLASSIFICATION TRIG less [...] resin uptake testOrdered By: Jesus Gonzalez on 57-32-0996V5RU65 %24-39Mer[facility] Urbana HospitalComment on above: Performed at: - [facility] [address] [place], [place] [id number] Billing Manager: Maxim Daniel PhD, Phone: [phone] at: [facility]co[place] [id number] [place], [place] [id number] Director: Maxim Daniel PhD, Phone: [phone] wrist RT 2Von 62-33-9600MY wrist RT 2V[facility] [employer] Other XR wrist RT 2VFRSanta Marta Hospital [employer] Other XR wrist RT [id number] [place] [address] [employer] Other XR wrist RT 2VSMiami, [place] [address]Jlxya [employer] Other XR wrist RT 2VXRAdventHealth Connerton [employer] Other XR wrist RT 2VSSSM Rehab [employer] Other XR wrist RT 2VPatient: Kourtney Novak MR#: [id number] [facility] [employer] Other XR wrist RT [id number] [employer] Other XR wrist RT 2VDOB: 1975 Acct:[id number] [employer] Other XR wrist RT 2VAge/Sex: 46 / F ADM Date: 01/24/22[place] [employer] Other XR wrist RT 2VLoc: SOXD Room: Type: [facility] [employer] Other XR wrist RT 2VAttending Dr: Elyssa Gomes MDM[place] [employer] Other XR wrist RT 2VOrdering Provider: Elyssa Gomes MD [place] [employer] Other XR wrist RT 2VDate of Service: 01/24/22[place] [employer] Other XR wrist RT 2VAccession #: ([id number] XR/XR wrist RT 2V: Osteochondrosis of lunate of right wristMills River [employer] Other XR wrist RT 2VCopies to: Elyssa Gomes MDMills [place] [employer] Other XR wrist RT 2VRight wrist 01/24/2022.[employer] Other xr wrist RT 2VCLINICAL DATA: Osteochondrosis of lunate of right wrist.[employer] Other xr wrist RT 2VFINDINGS: 2 views of the right wrist were obtained and are compared with a prior study 12/24/2021.[employer] Other xr wrist RT 2VNo acute fracture or dislocation is identified. The lunate again appears sclerotic. This findingMills River [employer] [facility] Other xr wrist RT 2Vhas not significantly changed. No collapse is seen. No soft tissue swelling is visualized.[employer] Other xr wrist RT 2VORDER #: [id number] XR/XR wrist RT 2V [employer] Other xr wrist RT 2VIMPRESSION: Sclerotic lunate, not significantly changed.[employer] Other xr wrist RT 2VImpression dictated by: Brody Marks Jr., M.D.01/24/2022 3:00 [facility] [employer] Other xr wrist RT 2VDictation Location: [id number] [employer] Other xr wrist RT 2VTranscribed By: GRACIE 01/24/22 1500[place] [employer] Other xr wrist RT 2VDictated By: Brody Marks Jr, MD 01/24/22 1454[place] [employer] Other xr wrist RT 2VSigned By:[employer] Other XR wrist RT 2V01/24/[address] [place] [address] [employer] Other XR wrist RT min 3V*on 94-39-1038PU wrist RT min 3V* [facility] [employer] Other XR wrist RT min 3V*[facility] [employer] Other XR wrist RT min 3V*April Lemons [facility] [employer] Other XR wrist RT min 3V*[place] [address]Yopxy [employer] Other XR wrist RT min 3V*XRay [facility] [employer] Other XR wrist RT min 3V*Critical access hospital [employer] Other XR wrist RT min 3V*Patient: Kourtney Novak MR#: [id number] [employer] Other XR wrist RT min 3V*[id number] [employer] Other XR wrist RT min 3V*: 1975 Acct:[id number] [place] [employer] Other XR wrist RT min 3V*Age/Sex: 46 / F ADM Date: 11/20/21 [employer] Other XR wrist RT min 3V*Loc: SOXD Room: Type: [facility] [employer] Other XR wrist RT min 3V*Attending Dr: Elyssa Gomes MD [employer] Other XR wrist RT min 3V*Ordering Provider: Elyssa Gomes MDM[place] [employer] Other XR wrist RT min 3V*Date of Service: 11/20/21[employer] Other XR wrist RT min 3V* XR/XR wrist RT min 3V*: Other specified postproceduralMills River [employer] Other XR wrist RT min 3V*states;Osteochondrosis of lunMills River [employer] Other XR wrist RT min 3V*Copies to: Elyssa Gomes MD [employer] Other XR wrist RT min 3V*4 viewsRIGHT wrist plain filmMills River [employer] Other XR wrist RT min 3V*COMPARISON:NoneM[place] [employer] Other XR wrist RT min 3V*HISTORY:Status post RIGHT wrist degeneration with previous core decompressionMills River [employer] Other XR wrist RT min 3V*Sclerotic changes of the lunate present. No collapse identified. Calculi metacarpal bonesMills River [employer] Other XR wrist RT min 3V*identified. No soft tissue abnormality seen.[employer] Other XR wrist RT min 3V* XR/XR wrist RT min 3V*[employer] Other XR wrist RT min 3V*IMPRESSION:Sclerotic changes of the lunate. Adequate bony alignment. No collapse.[employer] Other XR wrist RT min 3V*Impression dictated by: George Gray M.D.11/20/2021 3:59 PMNpemiscot memorial [facility] systems [employer] Other XR wrist RT min 3V*Dictation Location: [facility]11 [employer] Other XR wrist RT min 3V*Transcribed By: GRACIE 11/20/21 [facility] [employer] Other XR wrist RT min 3V*Dictated By: George Gray DO 11/20/[address] [place] [address] [employer] Other XR wrist RT min 3V*Signed By:[employer] Other XR wrist RT min 3V*11/20/21 [facility] [employer] Other XR wrist RT min 3V*on 41-50-9675EI wrist RT min 3V* [facility] [employer] Other XR wrist RT min 3V*[facility] [employer] Other XR wrist RT min 3V*[address] [facility] [employer] Other XR wrist RT min 3V*[place] [address]Ckeqx [employer] Other XR wrist RT min 3V*XRay [facility] [employer] Other XR wrist RT min 3V*Critical access hospital [employer] Other XR wrist RT min 3V*Patient: Kourtney Novak MR#: [id number] [employer] Other XR wrist RT min 3V*[id number] [employer] Other XR wrist RT min 3V*: 1975 Acct:[id number] [place] [employer] Other XR wrist RT min 3V*Age/Sex: 45 / F ADM Date: 08/28/21 [place] [employer] Other XR wrist RT min 3V*Loc: [facility] Room: Type: [facility] [employer] Other XR wrist RT min 3V*Attending Dr: Elyssa Gomes MD [place] [employer] Other XR wrist RT min 3V*Ordering Provider: Elyssa Gomes MDMills [place] [employer] Other XR wrist RT min 3V*Date of Service: 08/28/21[place] [employer] Other XR wrist RT min 3V* XR/XR wrist RT min 3V*: M92.211[place] [employer] Other XR wrist RT min 3V*Copies to: Elyssa Gomes MD [employer] Other XR wrist RT min 3V*RIGHT WRIST - 4 viewsNoresearch [facility] center [employer] Other XR wrist RT min 3V*CLINICAL DATA: Right wrist pain and decreased range of motion. No injury.[employer] Other XR wrist RT min 3V*COMPARISON: 11/15/2020 and [facility]2020[facility] [employer] Other XR wrist RT min 3V*AP, lateral, oblique and ulnar deviation views were obtained. There is no acute fracture [facility] Other XR wrist RT min 3V*dislocation. Minor sclerosis is again seen at the lunate where there is also subchondral cysticNoresearch psychiatric center [employer] Other XR wrist RT min 3V*change medially. This is similar to the prior. There is no developing joint space narrowing [facility] Other XR wrist RT min 3V*hypertrophy. No prominent soft tissue swelling is noted.[employer] Other XR wrist RT min 3V* XR/XR wrist RT min 3V*[employer] Other XR wrist RT min 3V*IMPRESSION:[employer] Other XR wrist RT min 3V*BONY CHANGES AT THE LUNATE, SIMILAR TO THE COMPARISON.[employer] Other XR wrist RT min 3V*NO ACUTE FINDINGS.[employer] Other XR wrist RT min 3V*Impression dictated by: Trixie Irizarry M.D.08/28/2021 4:42 [facility] Other XR wrist RT min 3V*Dictation Location: [place] [address] [employer] Other XR wrist RT min 3V*Transcribed By: GRACIE 08/28/21 1642 [employer] Other XR wrist RT min 3V*Dictated By: Trixie Irizarry MD 08/28/21 1639[employer] Other XR wrist RT min 3V*Signed By:[employer] Other xr wrist RT min 3V*08/28/21 1648[employer] Other XR FOOT 3V AP/LAT/OBL BILon 09-95-0121AZ FOOT 3V AP/LAT/OBL TODD* * *Final Report* [...] tissues. No other significant abnormality. IMPRESSION: NORMAL Claims Processor: GUANACO Transcribe Date/Time: Mar 04 2021 2:52P [...] REMOTE FRACTURES OF THE LEFT WRIST DESCRIBED Claims Processor: GUANACO Transcribe Date/Time: Mar 04 2021 2:57P Dictated by : TOBI HERRMANN MD This examination was interpreted and the report reviewed and electronically signed by: TOBI HERRMANN MD on Mar 04 2021 2:59PM EST [id number]_[facility] Vital Signs Date TimeVital SignValuePerforming UvbeofactWyzxjhxc65-88-0734 14:11-0400Body mass index (BMI) [Ratio]40.77 kg/m2Sean Greene MD Work Phone: [facility]Bar[facility] RoadTdgxafdhuo04-67-5336 14:11-0400Body bfluez185.13 kgSean Greene MD Work Phone: [facility]Barry RoadAddiwuvgem05-25-6744 13:49-0400Body tzakep471.1 cmKgirish Mayberry DMD Work Phone: [facility]10-14-2025 13:49-0400Body mass index (BMI) [Ratio]40.77 kg/r3ReiroJonathan Mayberry DMD Work Phone: [facility]10-14-2025 13:49-0400Body surface area Derived from formula2.26 j3Lslrxgirish Mayberry DMD Work Phone: [phone]10-14-2025 13:49-0400Body fpudvpjphxq06.2 [degF]Jonathan Mayberry DMD Work Phone: [phone])[address] [place], [place] 1255010-14-2025 13:49-0400Body ojvcel514.13 kgJonathan Mayberry DMD Work Phone: 1(938)[address] [place], [place] 1255010-14-2025 13:49-0400Diastolic blood nvgkjlba86 mm[Hg]Jonathan Mayberry DMD Work Phone: 1(895)[address] [place], [place] 1255010-14-2025 13:49-0400Heart rate88 /Heather Mayberry DMD Work Phone: 1(777)[address] [place], [place] 1255010-14-2025 13:49-0400Systolic blood qtqfioyz424 mm[Hg]Jonathan Mayberry DMD Work Phone: 1(705)[address] [place], [place] 1255009-22-2025 22:31-0400Diastolic blood qshiqzgd11 mm[Hg]Jesus Gonzalez MD Work Phone: 1(216)126-[address] [place], [place] 3355909-22-2025 22:31-0400 Heart rate74 /Beverly Gonzalez MD Work Phone: [phone])[address]09-22-2025 22:31-0400 Respiratory rate16 /Beverly Gonzalez MD Work Phone: 1(915)210-[address] [place], [place] 3355909-22-2025 22:31-0400 SaO2% (BldA) [Mass fraction]99 %Jesus Gonzalez MD Work Phone: 1(758)951-[address] [place], [place] 3355909-22-2025 22:31-0400 Systolic blood bnxplitt719 mm[Hg]Jesus Gonzalez MD Work Phone: 1(104)104-[address] [place], [place] 3355909-22-2025 20:19-0400 Body hogusk306.56 cmDoerik Gonzalez MD Work Phone: [phone])[address]09-22-2025 20:19-0400 Body ikogepecotd62.3 [degF]Jesus Gonzalez MD Work Phone: [facility]09-22-2025 20:19-0400 Body fiyqjx991.39 kgJesus Gonzalez MD Work Phone: [facility]09-22-2025 17:46-0400 Body mass index (BMI) [Ratio]42.27 kg/n2OjncexeLamar Dorsey [employer] STOCK WASHER Work Phone: [phone] RoadTjvezigbpg84-58-5307 17:46-0400Body temperature 98.71 [degF]Lamar Dorsey [employer] STOCK W[employer]ER Work Phone: [phone] [place], [place] [address]Zmdwaowiht54-82-2669 17:46-0400Body ecnqmn379.21 kgLamar Dorsey [employer] STOCK WASHER Work Phone: [phone])[address] [place], [place] [address]Iqcuivzxbu52-30-0829 17:46-0400Diastolic blood htbwjyqp20 mm[Hg]Lamar Dorsey [employer] ST[employer] W[employer]ER Work Phone: [phone] [place], [place] [address]Jkyhdhgbri28-22-7096 17:46-0400Heart rate88 /min Lamar Dorsey [employer] STOCK W[employer]ER Work Phone: 1(937)[address] [place] [address]-22-2025 17:46-0400Respiratory rate20 /minLamar Dorsey [employer] STOCK W[employer]ER Work Phone: 1(392)774-[address] [place], [place] [address]Irhkkhsemx35-89-9991 17:46-5077GiD3% (BldA) [Mass fraction]99 %Lamar Dorsey [employer] STOCK WASHER Work Phone: [facility] RoadQokrewakpn40-51-9396 17:46-0400Systolic blood xgarevhk806 mm[Hg]Lamar Dorsey [employer] STOCK WASHER Work Phone: 1(274)565-[address] [place] [address]-10-2025 14:51-0400Body mpaquu913.1 cmSusan Rice WHCNP Work Phone: [facility]09-10-2025 14:51-0400Body mass index (BMI) [Ratio]40.77 kg/m0Xzscz Rice WHCNP Work Phone: [facility]09-10-2025 14:51-0400Body .13 kgSusan Rice WHCNP Work Phone: 1(478)434-[address] [place], [place] 6170409-10-2025 14:51-0400Diastolic blood zojcdnfc48 mm[Hg]Zulema MATSONCNP Work Phone: 1(823)[address]09-10-2025 14:51-0400Heart rate88 /Edgar MATSONCNP Work Phone: 1(872)[address] [place], [place] 1255009-10-2025 14:51-0400Respiratory rate18 /Edgar MATSONCNP Work Phone: 1(959)[address] [place], [place] 1255009-10-2025 14:51-6869ElO9% (BldA) [Mass fraction]98 %Zulema MATSONCNP Work Phone: 1(358)[address] [place], [place] 1255009-10-2025 14:51-0400Systolic blood mm[Hg]Zulema EDWARDSP Work Phone: 1(587)[address] [place], [place] 1255009-09-2025 13:21-0400Body mass index (BMI) [Ratio]41.27 kg/o3Hggpvqk Cosmo [employer] STOCK WASHER Work Phone: [facility] RoadBngsdwxtqs53-05-0796 13:21-0400Body temperature 98.29 [degF]Yola Wilburn [employer] STOCK WASHER Work Phone: [facility] RoadUfadcukwzy18-86-7250 13:21-0400Body qlmidj892.49 kgLinsherrymary Cosmo [employer] STOCK WASHER Work Phone: [phone] RoadZyfuzuiiig80-95-8057 13:21-0400Diastolic blood kcfecrmh02 mm[Hg]Yola Wilburn [employer]OWN STOCK WASHER Work Phone: [facility] RoadXefdteldmn48-12-3877 13:21-0400Heart rate74 /min Yoal Wilburn [employer] STOCK WASHER Work Phone: [facility] RoadDhgzbesjot94-67-2534 13:21-3542YaR0% (BldA) [Mass fraction]98 %Yola Wilburn [employer] STOCK WASHER Work Phone: [facility] RoadZospnfgeeo41-08-5670 13:21-0400Systolic blood waljdisc096 mm[Hg]Yola Wilburn [employer]OWN STOCK WASHER Work Phone: [facility] RoadVkgqkwwels37-07-8730 12:03-0400Body mass index (BMI) [Ratio]40.83 kg/k9Wlkewb Appointments Work Phone: [facility]07-02-2025 12:03-0400Body wnkbyc223.3 kgFellow Appointments Work Phone: [facility] HospitalComment on above:with ziulw00-43-5222 12:03-0400Diastolic blood elrnpano40 mm[Hg]Fellow Appointments Work Phone: [facility] HospitalComment on above: -21-4930 12:03-0400Heart rate82 /minFellow Appointments Work Phone: [facility]07-02-2025 12:03-0400Respiratory rate 18 /minFellow Appointments Work Phone: [facility]07-02-2025 12:03-9959HmE9% (BldA) [Mass fraction]99 %Fellow Appointments Work Phone: [facility]07-02-2025 12:03-0400Systolic blood mrhamqsp915 mm[Hg]Fellow Appointments Work Phone: [facility] HospitalComment on above: jyfoqtuf22-03-7481 13:17-0400Body dpmobo170.1 cmSusan Rice CNP Work Phone: [facility]06-30-2025 13:17-0400Body mass index (BMI) [Ratio]40.77 kg/d6Zepsd Rice WHCNP Work Phone: 1(970)[address]06-30-2025 13:17-0400Body jestfw450.13 kgSusan Rice WHCNP Work Phone: [phone]06-30-2025 13:17-0400Diastolic blood xtuowrpf19 mm[Hg]Zulema EDWARDSP Work Phone: [facility]06-30-2025 13:17-0400Heart rate76 /Edgar EDWARDSP Work Phone: 1(215)[address]06-30-2025 13:17-0400Respiratory rate16 /Edgar EDWARDSP Work Phone: 1(881)[address]06-30-2025 13:17-6107WnX6% (BldA) [Mass fraction]97 %Zulema EDWARDSP Work Phone: 1(143)[address] [place], [place] 1255006-30-2025 13:17-0400Systolic blood vqehbuav702 mm[Hg]Zulema EDWARDSP Work Phone: 1(120)[address] [place], [place] 1255006-23-2025 10:11-0400Body mass index (BMI) [Ratio]39.95 kg/m2[facility]06-23-2025 10:11-0400Body ohtyjqakftn71.19 [degF][facility]06-23-2025 10:11-0400Body ygimja765.9 kg[facility] 03-06-2025 10:11-0400Diastolic blood ftlyzusm62 mm[Hg][facility]06-23-2025 10:11-0400Heart rate93 /[facility] 03-06-2025 10:11-0400Respiratory rate18 /Rachanamarilyn [facility] 03-06-2025 10:11-3583DdF0% (BldA) [Mass fraction]100 %[facility] HealthcareComment on above:hj42-45-8095 10:11-0400Systolic blood mm[Hg] [facility]06-09-2025 15:51-9019TuS8% (BldA) [Mass fraction] 98 %ERIK [facility] Ahuja Medical CenterComment on above:Order Comment: Specimen Type: ARTERIAL BLOOD SPECIMENOrdering Facility: [facility]Address: [address] [id number] By: #### ALLMG ####[facility] LABIA [id number] [facility] L [address] [place], [place] [address]153406-09-2025 13:28-1262NjT1% (BldA) [Mass fraction]99 %ERIK RECINOSGreen Cross HospitalComment on above:Order Comment: Specimen Type: ARTERIAL BLOOD SPECIMENOrdering Facility: [facility]USAddress: [address] [place], [place] [address]Performed By: #### ALLMG ####[facility]-FAIRHILLIA [id number] [facility] [id number] [place], [place] 7146506-03-2025 07:42-0400Body height 163.8 cmPacc 2 Work Phone: [facility]06-03-2025 07:42-0400Body mass index (BMI) [Ratio]40.98 kg/m2Pacc 2 Work Phone: [facility]06-03-2025 07:42-0400Body temperature 98.71 [degF]Pacc 2 Work Phone: [facility]06-03-2025 07:42-0400Body ivsnbj571 kg Pacc 2 Work Phone: [facility]06-03-2025 07:42-0400Diastolic blood eciricak09 mm[Hg]Pacc 2 Work Phone: [facility]06-03-2025 07:42-0400Heart rate80 /min Pacc 2 Work Phone: [facility]06-03-2025 07:42-0400Respiratory rate 16 /minPacc 2 Work Phone: [facility]06-03-2025 07:42-5434JzP2% (BldA) [Mass fraction]96 %Pacc 2 Work Phone: [facility]06-03-2025 07:42-0400Systolic blood ggznnvla163 mm[Hg]Pacc 2 Work Phone: [facility]04-16-2025 09:34-0400Body mass index (BMI) [Ratio]41.06 kg/u2KveekZulema Wood MD Work Phone: [facility]04-16-2025 09:34-0400Body oqcpuy327.2 kgZulema Wood MD Work Phone: [facility]04-16-2025 09:34-0400Diastolic blood xgyswlou39 mm[Hg]Zulema Wood MD Work Phone: [facility]04-16-2025 09:34-0400Heart atus680 /minSandrew Wood MD Work Phone: [facility]04-16-2025 09:34-0400Systolic blood mm[Hg]Zulema Wood MD Work Phone: [facility]10-30-2024 17:34-0400Body mass index (BMI) [Ratio]40.77 kg/m2Estevan Polanco [employer] STOCK WASHER Work Phone: [facility]OCoxHealthBlfjkhnsge29-52-8335 17:34-0400Body temperature 98.71 [degF]Estevan Polanco [employer] STOCK WASHER Work Phone: [facility]OCoxHealthTgbgqkjuxk60-01-9683 17:34-0400Body elwhgw019.13 kgEstevan Polanco [employer] STOCK WASHER Work Phone: NOCoxHealthBovqsgnxeg65-46-0543 17:34-0400Diastolic blood mestvhjo60 mm[Hg]Estevan Polanco BR[employer] STOCK WASHER Work Phone: NOCoxHealthNlfjxsrixv05-31-1881 17:34-0400Heart rate87 /min Estevan Polanco [employer] STOCK WASHER Work Phone: NOCoxHealthHlmbsslpyy54-17-6712 17:34-5438WlZ8% (BldA) [Mass fraction]99 %Estevan Polanco BR[employer] STOCK WASHER Work Phone: NOCoxHealthVqepxxuozj89-81-9394 17:34-0400Systolic blood kmtcybfl226 mm[Hg]Estevan Polanco [employer] STOCK WASHER Work Phone: [facility] RoadBdgqgtynge46-15-7804 09:38-0400Body mass index (BMI) [Ratio]40.61 kg/w4GvpvpZulema Wood MD Work Phone: [facility]09-16-2024 09:38-0400Body vksofh483 kg Zulema Wood MD Work Phone: [facility]09-16-2024 09:38-0400Diastolic blood eehnxzre78 mm[Hg]Zulema Wood MD Work Phone: [facility]09-16-2024 09:38-0400Heart rate87 /min Zulema Wood MD Work Phone: [facility]09-16-2024 09:38-0400Respiratory rate 18 /minSandrew Wood MD Work Phone: [facility]09-16-2024 09:38-0400Systolic blood nzelhvjl796 mm[Hg]Zulema Wood MD Work Phone: [facility]10-17-2023 10:52-0400Body cm Erik Pineda MD Work Phone: [facility] HealthGdvwvu00-08-6864 10:52-0400Body temperature 98.71 [degF]Erik Pineda MD Work Phone: [facility]UC HealthJaiscb41-21-7093 10:52-0400Body juouev431.88 kgErik Pineda MD Work Phone: [phone] HealthGmzamz01-06-1105 10:52-0400Diastolic blood itchqpms78 mm[Hg]Erik Pineda MD Work Phone: [phone] HospitalZamozj40-18-2803 10:52-0400Heart oesg124 /minErik Pineda MD Work Phone: [place] Ijbjzb10-10-2488 10:52-0400Respiratory rate 18 /minErik Pineda MD Work Phone: [place] Ehtqlb83-07-6191 10:52-5183NiP9% (BldA) [Mass fraction]97 %Erik Pineda MD Work Phone: cUC HealthXtaqro54-83-5932 10:52-0400Systolic blood mm[Hg]Erik Pineda MD Work Phone: cUC HealthErrqfg58-19-4335 07:10-0400Body .1 cmMD Jesus Gonzalez Work Phone: [facility]08-23-2023 07:10-0400 Body mazmjx712.05 kgMD Jesus Gonzalez Work Phone: [facility]07-18-2023 09:30-0400 Body ihueko967.1 cmCjoni Adiafede Other [employer] Other 07-18-2023 09:30-0400Body mass index (BMI) [Ratio] 36.94 kg/o7Sjkwsoc Earlinepiedad Other [employer] Other 07-18-2023 09:30-0400Body jaljcq456.7 kgCamseemamarie Adiatty Other [employer] Other 07-18-2023 09:30-0400Diastolic blood rqcciayr74 mm[Hg] Russell Shields Other [employer] Other 07-18-2023 09:30-0400Systolic blood ycqcqdqw139 mm[Hg] Russell Difede Other [employer] Other 01-16-2023 15:28-0500Body eztnxu272.08 kgZulema Wood MD Work Phone: [facility]01-16-2023 15:28-0500Diastolic blood mm[Hg]Zulema Wood MD Work Phone: [facility]01-16-2023 15:28-0500Heart rate99 /min Zulema Wood MD Work Phone: [facility]01-16-2023 15:28-0500Systolic blood mm[Hg]Zulema Wood MD Work Phone: [facility]11-03-2022 15:45-0400Body kaafub910.1 cmJeharmony Bowles Other [employer] Other 07-18-2022 14:00-0400Body hqchbi073.1 cmJeharmony Bowles Other [employer] Other 07-18-2022 14:00-0400Body mass index (BMI) [Ratio]39.6 kg/s0Abmyspciharmony Bowles Other [employer] Other 07-18-2022 14:00-0400Body lrmtit692.96 kgJenntre Bowles Other [employer] Other 05-16-2022 14:15-0400Body ossdpf887.1 cmBeti Bowles Other [employer] Other 05-16-2022 14:15-0400Body mass index (BMI) [Ratio] 39.93 kg/d2Kufbgfwgtre Bowles Other [employer] Other 05-16-2022 14:15-0400Body mqeres142.86 kgJeharmony Bowles Other [employer] Other 05-09-2022 11:03-0400Body onvphk771.1 Nabil Wood MD Work Phone: [facility]05-09-2022 11:03-0400Body dguivo300.06 kgZulema Wood MD Work Phone: [facility]05-09-2022 11:03-0400Diastolic blood einbxegt12 mm[Hg]Zulema Wood MD Work Phone: [facility]05-09-2022 11:03-0400Heart hfld069 /minSandrew Wood MD Work Phone: [facility]05-09-2022 11:03-0400Systolic blood rgzkuvpt663 mm[Hg]Zulema Wood MD Work Phone: [facility]03-09-2022 16:15-0500Body jvpzof037.1 Raphael Gomes Other [employer] Other 03-09-2022 16:15-0500Body mass index (BMI) [Ratio] 39.93 kg/i0Lyhrutvbryant Gomes Other [employer] Other 03-09-2022 16:15-0500Body napjuq177.86 kgCollbryant Gomes Other [employer] Other 01-25-2022 15:15-0500Body .1 Ulissesollbryant Gomes Other [employer] Other 01-25-2022 15:15-0500Body mass index (BMI) [Ratio] 39.43 kg/g9Dbreybi Calvmary Other [employer] Other 01-25-2022 15:15-0500Body .5 kgCollbryant Gomes Other [employer] Other 12-15-2021 16:15-0500Body .1 Ulissesollbryant Gomes Other [employer] Other 12-15-2021 16:15-0500Body mass index (BMI) [Ratio] 38.77 kg/v6UzglvgsElyssa Gomes Other [employer] Other 12-15-2021 16:15-0500Body .69 kgCojoe Gomes Other [facility] [employer] Other Encounters Encounter DateEncounter TypeCare ProviderFacilityStart: 07-17-2025 End: 59-17-6301Fdznfzm encounter procedureJesus Langston MD-Electrodiagnostics Work Phone: Start: 07-17-2025 End: 43-58-9411glgnfdsvhwTvtvlro M Hoy MD Work Phone: [phone]-LpqgwlfnsxgeuofqrbSnvba: 07-12-2025 End: 60-76-5113zcryeifiqiCwgiokh M Hoy MD Work Phone: [phone]-Opgtuiapk Health OrthopedicsStart: 07-12-2025 End: 64-61-7112Yyjkvbm encounter procedureCojoe Gomes MD-[facility] Work Phone: Start: 07-10-2025 End: 89-53-5558Vmkqqd outpatient new 30 minutesToanais Greene MD Work Phone: [facility] [place] AllergyComment on above:Recurrent sinus infections (Primary Dx); Obstructive sleep apneaStart: 07-10-2025 End: 72-03-3992jwhusjvmjoOZVT E CESARBASEKNot AvailableStart: 07-10-2025 End: 85-66-7155Gqnfka flowsheetSean Greene MD Work Phone: [facility] [place] AllergyStart: 07-10-2025 End: 82-77-7112Nsgxql flowsheetSean Greene MD Work Phone: [facility] [place] AllergyStart: 07-10-2025 End: 12-41-8451Xqicgg OnlySean Greene MD Work Phone: [facility] External Department UnsolicitedStart: 06-27-2025 End: 00-43-6159Nhgzqar encounter Isa Ocampo [employer] STOCK W[employer]ER-C-MRI [facility] [place] Work Phone: Start: 06-27-2025 End: 66-80-2877xcxemoprbyOpolfob M Hoy MD Work Phone: [facility] Work Phone: Start: 06-27-2025 End: 44-08-4237Wfecfmxcw Mary Anne Mayberry DMD Work Phone: Dental ClinicStart: 06-27-2025 End: 78-48-8310orbfjfff oral evaluation - established patientJesus Gonzalez MDCity Hospital DistrictStart: 40-13-1875dnxohuzcmpDdpipsf Hoy [facility] DEPARTMENTStart: 06-26-2025 End: 24-37-9024Okdaish encounter procedureJesus Langston MD-[facility] Work Phone: Start: 06-26-2025 End: 54-51-8881njxamsjvsySwjnlve M Hoy MD Work Phone: [facility] Work Phone: Start: 75-32-5290Ehlqblgid for general adult medical examination without abnormal findingsJesus Bui [facility] Start: 06-22-2025 End: 44-24-0440flnfyvyhjrTNJLR P MATHAIFacility:[facility] Troytart: 06-19-2025 End: 09-24-1929Eyhnxpy encounter procedureJesus Langston MD-CT Scan [facility] [place] Work Phone: Start: 06-19-2025 End: 78-67-8984tmfxaufybtGsiljfo M Hoy MD Work Phone: [facility] Work Phone: Start: 06-13-2025 End: 95-68-7057Hsxguga encounter procedureJesus Langston MD-Ultrasound [facility] [place] Work Phone: Start: 06-13-2025 End: 89-28-4077hfigqfwjnmHiflvxv M Hoy MD Work Phone: [facility] Work Phone: Start: 06-06-2025 End: 18-54-6503Xxazcvvda encounterLinmohamud Dorsey [employer] WASHER Work Phone: [facility] MedicineStart: 06-05-2025 End: 80-39-8622Aacobytgk department patient visitJesus Gonzalez MD Work Phone: [phone]-Lzdpntutg Room Work Phone: Start: 06-05-2025 End: 98-13-0700wxhzxfscpsPAUNIFN N AUSTINNot AvailableStart: 06-05-2025 End: 34-08-9057Tviqcb outpatient visit 25 minutesLinmohamud Dorsey [employer]OCK WASHER Work Phone: [facility] Urgent CareComment on above:Rib pain on right side (Primary Dx); Sprain of costal cartilage, initial encounterStart: 05-30-2025 End: 09-51-2314tqysgbsatcWkglrza M Hoy MD Work Phone: [facility] Work Phone: Start: 05-30-2025 End: 95-51-8961Amrrtnw encounter procedureKenalini Nuñez [facility] Work Phone: Start: 05-30-2025 End: 33-99-9425Jvbpfnz encounter procedureKrishan Nuñez [facility] Start: 05-30-2025 End: 82-16-1884bfryvqbgnzIsztpyi M Hoy MD Work Phone: [facility] Work Phone: Start: 05-29-2025 End: 59-58-9196neqohdzsokFukolomJericho Hollingsworth MDFacility:[facility] [place] Start: 05-26-2025 End: 56-60-5292Blfzjkg encounter procedureJesus Langston MD-Lab [facility] Centertart: 05-26-2025 End: 71-26-1669kahzooyzttLblkjox M Hoy MD Work Phone: [facility] Work Phone: Start: 05-24-2025 End: 02-21-5477Itmgtt outpatient visit 5 minutesSunavin Mckinney [facility] Work Phone: [facility] Hospitaltart: 05-23-2025 End: 62-64-9049Wlnjyc outpatient visit 25 minutesYola Wilburn NP Work Phone: [facility] Urgent CareComment on above:Fibromyalgia Start: 05-23-2025 End: 11-84-3302fgawakftitCKRJBYG R LACONISNot AvailableStart: 05-17-2025 End: 63-86-3124BsimewBahcijpn Hamdan APRN.CLINICAL GENETICIST Work Phone: Neurology Headache [place] FHCComment on above:Refill RequestStart: 04-25-2025 End: 16-74-5441HxmtytOcmiz P Mathai MD Work Phone: RheumatologyComment on above:Refill RequestStart: 04-24-2025 End: 38-00-6623phyfxcnyjkUiwupeuJericho Hollingsworth MDFacility:[facility] [place] Start: 04-12-2025 End: 61-85-3799Eccvklxjewbx consultation with Balbina Fenton APRN.CLINICAL GENETICIST Work Phone: NeurologyStart: 04-12-2025 End: 06-17-3059ehudcxvjpzZzurodun Hamdan APRN.CLINICAL GENETICIST Work Phone: NeurologyComment on above:Meningioma (HCC) (Primary Dx); Chronic daily headacheStart: 03-29-2025 End: 34-18-8047Qfsenfntsoyj consultation with Whitley Pineda MD Work Phone: [facility] Tumor CenterStart: 03-29-2025 End: 66-90-4274wvomdktjklCrpgo F Recinos MD Work Phone: [facility] Brain Tumor CenterComment on above: Intracranial meningioma (HCC) (Primary Dx); Postprocedural state; Dizziness and giddinessStart: 03-26-2025 End: 60-33-6295cawbafmrfaOxdxbRegi Pineda MD Work Phone: [facility] Brain Tumor CenterComment on above:Incision Start: 03-22-2025 End: 23-22-3472ovhxselrloShngwin M Hoy MD Work Phone: [facility] Work Phone: Start: 03-22-2025 End: 30-67-2919Xfvegun encounter procedureCojoe Gomes MD-[facility] Orthoped[facility] Work Phone: Start: 03-20-2025 End: 68-74-1289XvrcuoFccbh Chotai MD Work Phone: Endovascular CenterComment on above:Refill Request Start: 03-15-2025 End: 06-29-7335RqompzJxozj Chotai MD Work Phone: Endovascular CenterComment on above:Refill RequestS/P craniotomy (Primary Dx)Start: 03-13-2025 End: 45-62-1095Tfouwx-up encounterSusamarie Wood MD Work Phone: RheumatologyStart: 03-13-2025 End: 27-00-2710Agdlli outpatient visit 10 minutesSusamarie Mckinney [facility] HOSPITALPeggy Work Phone: [facility] Hospitaltart: 03-12-2025 End: 89-81-1466LtdfaaBhgzyaxj Hamdan APRN.CNP Work Phone: Neurology [facility] [place] FHCComment on above:Refill RequestStart: 03-08-2025 End: 07-69-5310Hhikvzwgn encounterSmarilyn Phillips [facility] [place] Comment on above:Surgical FollowupStart: 03-06-2025 End: 71-17-9049BkhvlrLskjx P Mathai MD Work Phone: RheumatologyComment on above:Refill RequestStart: 03-06-2025 End: 40-22-5765Qnopuwb evaluation of patient and reportSmarilyn BranhamSamaritan Healthcare Brain Tumor [place]Comment on above:S/P craniotomy (Primary Dx); Intracranial meningioma (HCC); Postop checkStart: 03-06-2025 End: 09-10-9191iwlmekerjuKCSCOII Rae CARLOSFacility:[facility] HospitalStart: 03-02-2025 End: 82-71-8968Vnppwhect to same day surgery Massiel Moy APRN.CNP Work Phone: NeurosurgeryComment on above:Benign neoplasm of meninges (HCC) (Primary Dx)Start: 03-02-2025 End: 79-87-5995Ikkeyszprzsh consultation with Lamont Moy APRN.CLINICAL GENETICIST Work Phone: NeurosurgeryStart: 03-02-2025 End: 20-39-2408kikigpbnmzDNKUOQF Rae CARLOSFacility:[facility] Troytart: 02-24-2025 End: 97-36-1119IuayirRzpzx P Mathai MD Work Phone: RheumatologyComment on above:Refill RequestStart: 02-23-2025 End: 38-78-3961Ymiwrlaut encounterSmarilyn BranhamSamaritan Healthcare [facility] [place] Comment on above:Surgical FollowupStart: 24-11-7933Ekxoipzvx for other preprocedural examinationPABLO F RECINOSCleMercy Health St. Elizabeth Boardman HospitalStart: 02-20-2025 End: 79-76-7048Sezltnonho and management of inpatientJESUS GONZALEZ [facility] 02-17-2025 End: 78-56-4774Qwaxneqhz encounterSgrant Phillips [facility] Comment on above:PreOp CallStart: 02-15-2025 End: 43-96-9941Bcbasxcatiul consultation with Whitley Pineda MD Work Phone: [facility] CenterStart: 02-15-2025 End: 73-76-8966hbfiljtxobEeadg F Recinos MD Work Phone: [facility] Tumor CenterComment on above: Intracranial meningioma (HCC) (Primary Dx)ConsentStart: 02-15-2025 End: 86-51-8835Invprvxaa encounterMehul Martin APRN.CNP Work Phone: pre AnesthesiaComment on above:Patient UpdateStart: 02-15-2025 End: 28-34-9201tkfttbqfevRISHGRA DAVISFacility:[facility]art: 02-14-2025 End: 89-27-2230Chpkaza encounter statusMri (1.5t) [facility] 02-[facility]25 End: 19-53-7096Kfmjfsuirw hospital visit by physiciandamien [facility] Alyssa (1.5t) Work Phone: RadiologyComment on above:Intracranial meningioma (HCC) [D32.0]Start: 02-14-2025 End: 08-38-8696Pcakzgntk to [facility] Work Phone: pre AnesthesiaStart: 02-14-2025 End: 42-75-0220Mlhgpxkuei consultationHca [facility] Hospitalain 2 Work Phone: pre AnesthesiaComment on [...] 44.9 in adult; Inflammatory arthritisStart: 02-14-2025 End: 76-92-4051Vropuol encounter statusJay [facility] 2 Work Phone[facility] [facility]tart[facility]-2025 End: 88-95-9771Nbwjotgymzqhd examination doneJoshua Ville [address] Work Phone: [facility] Work Phone: Start: 02-14-2025 End: 77-63-7989snzvinohhxHKBOJBV M HOYFacility:[facility] Troytart: 53-32-7513Ddjgpgznu for other preprocedural examinationPABLO RECINOSCleMercy Health St. Elizabeth Boardman HospitalStart: 02-10-2025 End: 47-73-5051Sidmqay encounter procedureJesus Gonzalez MD Work Phone: [facility] Ctr-Ultrasound Main [place] Work Phone: Start: 02-10-2025 End: 58-83-5374eocftfvmeqHrwhsvs M Hoy MD Work Phone: [facility] Work Phone: Start: 02-01-2025 End: 48-77-9752Fikouea encounter procedureJesus Gonzalez MD Work Phone: [facility] Work Phone: Start: 01-23-2025 End: 37-90-2258UdrgvqXcangxyi Hamdan ALLIGATOR HUNTEREstefanyCLINICAL GENETICIST Work Phone: [facility]ache [facility] FlorenceCComment on above:Med Change RequestStart: 01-06-2025 End: 95-80-3839iwflohgoeeBPCJLPN M HOYFacility:[facility] Troytart: 12-29-2024 End: 94-23-5906EvxgjqIezngfjq Hamdan ALLIGATOR HUNTEREstefanyCLINICAL GENETICIST Work Phone: Neurology Headache [place] FHCComment on above:Refill RequestStart: 12-28-2024 End: 22-95-5936Wjxqhs outpatient visit 25 minutesZulema Wood MD Work Phone: RheumatologyComment on above:Inflammatory arthritis (Primary Dx); Fibromyalgia; Encounter for medication monitoringStart: 12-28-2024 End: 64-09-0350xxxycuqzbgVZCTJ P MATHAIFacility:[facility] Troytart: 12-27-2024 End: 03-24-7515uiuhguhiibVqqrzzb M Hoy MD Work Phone: [facility] Work Phone: Start: 12-27-2024 End: 50-46-8874Otqoome encounter Daniel Gonzalez MD Work Phone: [facility] Work Phone: Start: 12-13-2024 End: 56-27-7665Wkgyfsx encounter Daniel Gonzalez MD Work Phone: [facility]: 12-13-2024 End: 29-89-0427tdahjkeedjCrqbpqu M Hoy MD Work Phone: [facility] Work Phone: Start: 12-05-2024 End: 71-42-4360Lqpqkzwoa encounterSgrant Phillips [facility] Comment on above:Care Coordination (MyChart Follow up - Surgery Planning )Start: 11-03-2024 End: 01-07-0162Wqenkqe encounter Daniel Gonzalez MD Work Phone: [facility] Work Phone: Start: 11-03-2024 End: 32-49-9929hgpqbfmqnoSoopkjv M Hoy MD Work Phone: [facility] Work Phone: Start: 10-10-2024 End: 97-59-1355Beujzzyrv encounterSandrew Wood MD Work Phone: rheumatologyComment on above:Aircraft Manager - Other (Lab order problem/)Refill RequestStart: 09-27-2024 End: 77-58-1607ndjrmywafgIpsqyvv M Hoy MD Work Phone: [facility] Work Phone: Start: 09-27-2024 End: 30-08-1332Bakfkyk encounter Daniel Gonzalez MD Work Phone: [facility] Work Phone: Start: 09-20-2024 End: 73-03-6455Zsnpvaqjz encounterSandrew Wood MD Work Phone: rheumatologyComment on above:Results (Lab results from [facility])Start: 09-20-2024 End: 08-00-9369Prjxond encounter Daniel Gonzalez MD Work Phone: [phone] [place] [address] Ctr-Lab [facility]ertart: 09-20-2024 End: 26-60-8854mgkhatzphqCerxwoe M Hoy MD Work Phone: [facility] Work Phone: Start: 09-16-2024 End: 98-32-5364Ozffvrt encounter Daniel Gonzalez MD Work Phone: [phone] [place] [address] Ctr-[facility] Work Phone: Start: 09-16-2024 End: 24-27-8894ldnchjkluaDekxsyp M Hoy MD Work Phone: [facility] Work Phone: Start: 09-09-2024 End: 10-78-5669zvsqwakgnsDjqokSharron Wood MD Work Phone: rheumatologyStart: 09-09-2024 End: 55-71-0821Dpmkphd encounter Andres Wood MD Work Phone: RheumatologyComment on above:LabsStart: 08-28-2024 End: 94-85-5442MdblizKokdo P Mathai MD Work Phone: RheumatologyComment on above:Refill RequestStart: 08-01-2024 End: 44-95-8019jjbreflubsKcccrpe Vytautas Giedraitis MDFacility:PM Julio C Start: 07-18-2024 End: 89-49-1278gkxqigxxdbKczbdhe Vytautas Giedraitis MDFacility:PM [place] Start: 07-13-2024 End: 05-39-4823luojoehsalWVQ C MILLERNot AvailableStart: 07-13-2024 End: 96-85-9347Yvnldq outpatient visit 25 minutesKirae Polanco BROWN STOCK WASHER Work Phone: [facility] UCComment on above:Tooth infection (Primary Dx)Start: 07-04-2024 End: 67-94-4632dkruirxnqnJzxmzka Vytautas Giedraitis MDFacility:PM Julio C Start: 06-22-2024 End: 46-51-6761larauimwaaIW Jesus M Hoy Work Phone: [facility] Work Phone: Start: 06-22-2024 End: 98-13-1697Zljjmxu encounter procedureMD Jesus Hoy Work Phone: [facility] CenterStart: 06-21-2024 End: 01-98-2965rblkaigwsySQ Jesus M Hoy Work Phone: [facility] Work Phone: Start: 06-21-2024 End: 99-30-6051Dmqoxci encounter procedureMD Jesus Hoy Work Phone: [facility] Work Phone: Start: 06-20-2024 End: 80-47-7697gobnrljlfmWrkpbdf Vytautas Giedraitis MDFacility:PM Julio C Start: 05-30-2024 End: 57-20-4406Swlsgzf encounter procedureSandrew Wood MD Work Phone: RheumatologyComment on above:Inflammatory arthritis (Primary Dx); Fibromyalgia; Medication monitoring encounterStart: 05-25-2024 End: 70-25-8182IddeuuDoqsztei Jaun Luisdamarie ALLIGATOR HUNTER.CLINICAL GENETICIST Work Phone: [facility] [place] FHCComment on above:Refill RequestStart: 05-12-2024 End: 20-00-9266bbjkwfwmrrQG Jesus Langston Luispiedad Work Phone: [facility] Work Phone: Start: 05-12-2024 End: 18-04-9245Qifrezl encounter procedure Jesus Smithpiedad Work Phone: [facility] C[facility]-Lab [facility] CenterStart: 07-97-7279TekzwaMyahs P Mathai MD Work Phone: RheumatologyComment on above:Refill RequestStart: 82-99-1865gnxkwgseqtGipwvhnm Juan Luisdamarie ALLIGATOR HUNTER.CLINICAL GENETICIST Work Phone: [facility] FHCComment on above:RobaxinStart: 31-88-7759mvkrijfsixCizwmwwb Juan Luisdamarie ALLIGATOR HUNTER.CLINICAL GENETICIST Work Phone: [facility] FHCComment on above:InsuranceStart: 16-10-7938Uxconmrvw encounterPajorge Pineda MD Work Phone: [facility] Tumor CenterComment on above:epidural steroid injectionStart: 03-04-2024 End: 81-02-4623efuhpibugcOO Jesus Langston Luispiedad Work Phone: [facility] Work Phone: Start: 03-04-2024 End: 18-49-3779Kejwopo encounter procedure Jesus Hoy Work Phone: [facility] [place] [facility] Work Phone: Start: 02-15-2024 End: 19-61-3805smhodvzleeIN Jesus Langston Hopiedad Work Phone: [facility] Work Phone: Start: 02-15-2024 End: 35-49-3673Ososrmn encounter procedureMD Jesus Gonzalez Work Phone: [facility] Ctr-Ultrasound Main [place] Work Phone: Start: 48-98-8522Fyzyvivwb encounterMonilesh Fenton ALLIGATOR HUNTER.CLINICAL GENETICIST Work Phone: NeurologyComment on above:Insurance Authorization; Aurelio DOYLE - Medicare / [employer].Start: 02-09-2024 End: 04-57-9566xeeypryzcuLF Douglas M Hopiedad Work Phone: [facility] Work Phone: Start: 02-09-2024 End: 21-96-5864Gehfsmc encounter procedureMD Jesus Gonzalez Work Phone: [facility]-MRI [address] Work Phone: Start: 02-05-2024 End: 90-44-3143jqbyeokarwNqgmysgn Hamdan ALLIGATOR HUNTER.CLINICAL GENETICIST Work Phone: Neurology Headache [place] FHCComment on above:Meningioma (HCC) (Primary Dx); Chronic daily headacheStart: 02-05-2024 End: 32-32-8337Frpkvlrnqjwy consultation with Balbina Fenton APRN.CLINICAL GENETICIST Work Phone: Neurology Headache [place] FHCStart: 02-02-2024 End: 61-38-0563hrbvfhwuqbPblzxj Appointments Work Phone: [facility] Brain Tumor CenterComment on above: Intracranial meningioma (HCC) (Primary Dx)Start: 02-02-2024 End: 39-52-3447Fbtibpifewod consultation with patientFellow Appointments Work Phone: [facility] Brain Tumor CenterStart: 54-49-0866Bpadbtnky encounterSgrant Phillips RNEcu Health [facility]-Chow[facility] Brain Tumor CenterComment on above: AppointmentStart: 08-62-6517NenyvoLsobyj Goforth MD Work Phone: Neurology Headache [place] FHCComment on above:Refill RequestStart: 02-87-9293eiagnutzciLJPRD F RECINOSFacility:[facility] HospitalStart: 01-29-2024 End: 84-61-4352Zqcjpcggwr hospital visit by physicianCt [facility] Work Phone: [facility] LODI HOSPComment on above: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]Benign neoplasm of meninges (HCC) [D32.9]Start: 95-69-8664WrbaulSxjqt P Mathai MD Work Phone: RheumatologyComment on above:Refill RequestStart: 01-26-2024 End: 98-61-3514Ytqmepu encounter procedureMD Jesus Gonzalez Work Phone: [facility] Work Phone: Start: 74-05-2276Bczpijxbr Rachel Phillips RN [facility] Brain Tumor CenterComment on above:Schedule Surgery (Surgery Planning )Start: 44-62-3483Kreyiyawt Dulce Wood MD Work Phone: RheumatologyComment on above:ResultsStart: 01-08-2024 End: 22-45-0904ergxjgxdsuSM Jesus Gonzalez Work Phone: [facility] Work Phone: Start: 01-08-2024 End: 36-71-9864Alafrnk encounter procedureMD Jesus Gonzalez Work Phone: [facility]-Lab [facility]ertart: 29-60-0065Qzddtoqtb encounterSgrant Phillips RNBurkaet Brain Tumor CenterComment on above:Schedule SurgeryStart: 86-01-4204Lehtieogb encounterSandrew Wood MD Work Phone: RheumatologyComment on above:Lab Orders/FAXStart: 43-35-7098QiufxvYfxijRebecca Wood MD Work Phone: RheumatologyComment on above:Refill RequestStart: 11-25-2023 End: 96-53-9872Yhthyyc encounter procedureMD Jesus Gonzalez Work Phone: [facility] Work Phone: Start: 33-71-9210GkbjbdQqfjgRebecca Wood MD Work Phone: RheumatologyComment on above:Refill RequestStart: 73-05-1864Yghxghlwq encounterSmarilyn Phillips RNPage Brain Tumor CenterComment on above:Care Coordination (follow up)Start: 11-11-2023 End: 17-08-6044Cjasxfp encounter procedureMD Jesus Gonzalez Work Phone: [facility] C[facility]-Lab [facility] CenterStart: 67-27-1871SzsyaoHbraiRebecca Wood MD Work Phone: RheumatologyComment on above:Refill RequestStart: 72-34-6375GgutqlOvvknRebecca Wood MD Work Phone: RheumatologyComment on above:Refill RequestStart: 07-97-8012Cvuhuswma to same day surgery Curly Pineda MD Work Phone: [facility] Brain Tumor CenterComment on above:Surgery Start: 65-31-4866jqyzgzkwekWyiaw F Recinos MD Work Phone: [facility] MAINStart: 60-09-9622Fpjlatakl encounterErik Pineda MD Work Phone: [facility] Brain Tumor CenterComment on above:Patient Update (Discuss Surgery March 2024)Start: 06-30-2023 End: 59-02-7162Tjcmsio encounter procedureErik Pineda MD Work Phone: [facility] Brain Tumor CenterComment on above: Intracranial meningioma (HCC) (Primary Dx)Start: 06-26-2023 End: 29-62-3241Apgzzq outpatient new 45 minutesFahad Corey MD Work Phone: Neurology Headache [place] FHCComment on above:Medication overuse headache (Primary Dx); Brain mass; Meningioma (HCC); Chronic daily headacheStart: 05-22-2023 End: 42-70-1705yafwebcnvnEX Jesus M Hoy Work Phone: [facility] Work Phone: Start: 05-22-2023 End: 49-13-3290Opmlhvn encounter procedureMD Jesus Hoy Work Phone: [facility]-Lab [facility] Centertart: 81-05-0774Iyqxiiele encounterMoira Goodrich APRN.CNP Work Phone: [facility] Brain Tumor CenterComment on above:TRIAGE Start: 05-06-2023 End: 94-20-8333sniccfjccyKT Jesus M Hoy Work Phone: [facility] Work Phone: Start: 05-06-2023 End: 76-50-8745Bgvjzku encounter procedureMD Jesus Hoy Work Phone: [facility] Ctr-MRI Main [place] Work Phone: Start: 04-29-2023 End: 66-36-8682kormafxwwhGK Jesus M Hoy Work Phone: [facility] Work Phone: Start: 04-29-2023 End: 17-24-4735Upnnnzc encounter procedureMD Jesus Hoy Work Phone: [facility] Work Phone: Start: 04-15-2023 End: 88-91-6369zkppqjonkkUQ Jesus Gonzalez Work Phone: [facility] Work Phone: Start: 04-15-2023 End: 90-48-7500Auikknc encounter procedureMD Jesus Gonzalez Work Phone: [facility]-Lab [facility] Centertart: 53-13-5037CnbpqsLsvhy P Mathai MD Work Phone: RheumatologyComment on above:Refill RequestStart: 22-81-3267NrahdoKayjj P Mathai MD Work Phone: RheumatologyComment on above:Refill RequestStart: 04-06-2023 End: 67-74-5781Conpbjz encounter procedureMD Jesus Gonzalez Work Phone: [facility] Work Phone: Start: 03-31-2023 End: 27-46-8187fcumyapjaiUdkypys Disophiay Other [facility] [employer] Other Start: 97-73-6219Dtbqtrv encounter procedureCameromarie PattenyFPG GastroenterologyStart: 83-36-8972JqvivmYzjrm P Mathai MD Work Phone: RheumatologyComment on above:Refill RequestStart: 57-13-0305GafandLexcr P Mathai MD Work Phone: RheumatologyComment on above:Refill RequestStart: 12-17-2022 End: 92-56-0485nxmdxtrlxcPgrkneo [place] Other [facility] [employer] Other Start: 47-89-4302Iwnkcj outpatient visit 15 minutes Elyssa CalveyFPG [facility] OrthopedicsStart: 99-28-0091ootftkldolSavgl P Mathai MD Work Phone: RheumatologyComment on above:FibroStart: 10-10-2022 End: 56-31-5412aqyqjomacfLE JESUS HOYFacility:O6Fiihy: 09-29-2022 End: 61-87-0043Rhufnep encounter procedureSandrew Wood MD Work Phone: RheumatologyComment on above:Inflammatory arthritis (Primary Dx); Myalgia; FibromyalgiaStart: 00-17-2946Vyezkyrpg encounterSandrew Wood MD Work Phone: RheumatologyComment on above:Orders ([place])Start: 09-24-2022 End: 11-30-4548Urazvhc encounter procedureMD Jesus Hoy Work Phone: [facility] [place] [facility] Start: 09-24-2022 End: 61-98-1812xyhdsvkwbjHQ Jesus M Hoy Work Phone: [facility] Work Phone: Start: 52-08-3335Sgvfvg outpatient visit 15 minutes Elyssa CalveyFPG [place] OrthopedicsStart: 02-08-3758Cvcnst outpatient visit 15 minutesColleen CalveyFPG [place] OrthopedicsStart: 08-05-2022 End: 42-29-1773eoyzmrmwqkVM Jesus M Hoy Work Phone: [facility] Work Phone: Start: 08-05-2022 End: 90-38-4851Hdnbjzx encounter procedureMD Jesus Hoy Work Phone: [facility] [place] [facility] Start: 07-29-2022 End: 64-22-5395rzgmzezzvhVZ Jesus M Hoy Work Phone: [facility] Work Phone: Start: 07-29-2022 End: 32-34-9566Lkoyyms encounter procedureMD Jesus Hoy Work Phone: [facility]-Lab Main CampusStart: 07-17-2022 End: 52-29-1594wiwepgiragMcesefao [place] Other [employer] Other Start: 34-93-0810Mjmwji outpatient visit 15 minutes Beti Reynoso [facility] [facility]opedicsStart: 06-25-2022 End: 90-81-6468jrybivlwvsGsyhumqq [place] Other [facility] [employer] Other Start: 07-70-3246Csernx outpatient visit 15 minutes Beti Reynoso [place] OrthopedicsStart: 66-16-9469duajtcxmjcJE JESUS HOYFacility:M4Pluil: 05-06-2022 End: 74-98-7047Khjimqm encounter procedureMD Jesus Hoy Work Phone: [facility] Start: 05-01-2022 End: 04-58-7830Howpksf encounter procedureMD Jesus Hoy Work Phone: [facility] C[facility]-Lab Main CampusStart: 03-31-2022 End: 07-61-6463qpavcuyyvdIooirjre [place] Other [place] [employer] Other Start: 04-38-4097Gidwed outpatient visit 15 minutes Beti Reynoso [facility] OrthopedicsStart: 03-21-2022 End: 37-48-4557Fwvibvlfms RecurringMD Jesus Hoy Work Phone: [facility]-Physical Therapy [place] CreekStart: 01-27-2022 End: 94-20-7965xqkqsfiutdPeqrccwv [place] Other [facility] [employer] Other Start: 95-26-4421Rjzltl outpatient visit 15 minutes Beti [facility] OrthopedicsStart: 01-24-2022 End: 02-60-6642jqhbcsbzqnIxggggu [place] Other [employer] Other Start: 98-62-9495Hlfbyo outpatient visit 15 minutes Elyssa MireyaFPG [facility] OrthopedicsStart: 01-20-2022 End: 19-19-7481vzhbvgilwtIgvaaxry [place] Other [employer] Other Start: 34-66-2603Oeibcn outpatient visit 15 minutes Beti [facility] OrthopedicsStart: 01-20-2022 End: 38-10-0315Xuaqguo encounter Andres Wood MD Work Phone: RheumatologyComment on above:Inflammatory arthritis (Primary Dx); MyalgiaStart: 12-24-2021 End: 01-66-6827kyowkxgdiyKxefcmy [place] Other [facility] [employer] Other Start: 91-26-6506Wfsfiu follow up visit related to original pxCollbryant JenkinsG [facility] OrthopedicsStart: 12-19-2021 End: 43-97-8129ihlkgxqubbXnuwqsfo [place] Other [employer] Other Start: 32-00-5196Fbmcipzet encounterBeti Bowles FPG [facility] OrthopedicsStart: 12-02-2021 End: 60-52-4598jaufeazhycMqodksbl [place] Other [employer] Other Start: 22-56-2157Vfogki outpatient visit 15 minutes Beti [facility] OrthopedicsStart: 11-20-2021 End: 41-12-9732ygevxkhwajEpjjpcn [place] Other [employer] Other Start: 25-22-5927Lynikr follow up visit related to original pxCollbryant [facility] OrthopedicsStart: 10-08-2021 End: 65-62-1243ztriygckenXhmmnym [place] Other [employer] Other Start: 68-77-7658Jampjb outpatient visit 25 minutes Elyssa Ferny [facility] OrthopedicsStart: 08-28-2021 End: 40-12-1577bxgxczvksuPzjsygg [place] Other [employer] Other Start: 40-30-3430Zpzikp outpatient visit 25 minutes Elyssa Ferny [facility]opedicsStart: 08-12-2021 End: 80-71-2487lsvpvfnzgdUrxkdle [place] Other [employer] Other Start: 73-45-1216Uubfaiikc encounterColleen Ferny [facility]opedicsStart: 09-55-4268Kvpfwk outpatient visit 15 minutesColleen Ferny [facility] OrthopedicsStart: 05-37-6569Vourwy outpatient visit 15 minutesJennifer Edgardo [facility] OrthopedicsStart: 05-11-2017 End: 69-48-4182WtynmtailzFVWZNUA PHYSICIANFacility:[facility] Procedures DateProcedureProcedure DetailPerforming ClinicianStart: 97-68-3447Npnxt X-ray of right wristJesus Gonzalez MD Work Phone: Start: 70-31-3430Neixq of gammaglobulin iga igd igg igm eachSean Greene MD Work Phone: Start: 38-49-7648Fcahtkrr blood count with white cell differential, automatedSean Greene MD Work Phone: Start: 91-42-8940Hgnj ia hiv-2Todd E Jc MCGHEE Work Phone: Start: 38-54-3728YF pre/post mri xrayJesus Gonzalez MD Work Phone: Start: 01-65-4416YI thoracic spine wo conDserjio Gonzalez MD Work Phone: Start: 06-27-2025 End: 55-07-6435zdrmcozhm - four radiographic imagesDoerik Gonzalez MDStart: 06-27-2025 End: 95-45-4276vhospg risk assessment and documentation, with a finding of moderate riskDoerik Gonzalez MDStart: 06-27-2025 End: 07-63-0416Hyrqwxqnpigne of current medicationsCentral [facility] Hospital Jefe DMD Work Phone: Start: 06-27-2025 End: 71-97-1823Jkviacp of Tobacco use NarrativeCentral Carolina Hospital Andreamethodist hospital [facility] DMD Work Phone: Start: 06-27-2025 End: 79-37-6051kgeqkeluecx counseling for control of dental diseaseDouglas Carlos MDStart: 06-27-2025 End: 13-20-9721eiwa hygiene instructionsDoerik Gonzalez MDStart: 06-27-2025 End: 80-11-1961kfzgtvsoymm - adultDoerik Gonzalez MDStart: 74-57-0639Xnjg energy X- ray absorptiometryJesus Gonzalez MD Work Phone: Start: 35-99-5753MT of chest without contrastJesus Gonzalez MD Work Phone: Start: 90-04-6826RL scan of thyroidJesus Gonzalez MD Work Phone: [phone]-art: 89-56-2012Kvime chest X-rayJesus Gonzalez MD Work Phone: Start: 46-19-8207Vumhk X-ray of right shoulderJesus Gonzalez MD Work Phone: [phone]-art: 05-24-2025 End: 02-69-9314Denscclxrusemxupsxw acetateSusan Rice WHCNP Work Phone: Start: 03-13-2025 End: 63-70-9739Mkjnvtxyffbwe of current medicationsSusan [facility] Work Phone: Start: 03-13-2025 End: 67-74-4072Kkpiydcjqsrrxeuxoxp acetateSusan [facility] Work Phone: Start: 44-14-3472Bga brain brain stem w/o w/contrast materialErik Pineda MD Work Phone: start: 99-47-6189Wxatzhky screenPAJORGE PINEDAComment on above:Order Comment: Specimen Type: BLOOD SPECIMENOrdering Facility: [facility] Address:[address] [place] [address] Performed By: #### [id number] ####CC MAIN BLOOD BANKCLIA [id number] [place] [address] [place] AMERICAStart: 02-10-2025 Ultrasonography of bilateral kidneysJesus Gonzalez MD Work Phone: Start: 70-68-6047Riwiaq-up visitFollow UpSANDREW MUELLERStart: 80-46-1123Vrbae X-ray of right wristJesus Gonzalez MD Work Phone: Start: 22-95-8037Lvbyr X-ray of left shoulderJesus Gonzalez MD Work Phone: Start: 08-37-2764Ambzatqca mammography of bilateral breastsDouglas Carlos MCGHEE Work Phone: Start: 63-66-5851CV scan of thyroidMD Jesus Gonzaelz Work Phone: [phone]-art: 70-93-8717RI pre/post mri xrayMD Jesus Gonzalez Work Phone: Start: 83-56-1734VD lumbar spine wo conMD Jesus Gonzalez Work Phone: [phone]-art: 20-67-4702AYR of cervical spine without contrastMD Jesus Hoy Work Phone: Start: 28-17-2665JCK of headMD Jesus Hoy Work Phone: Start: 04-29-2023 End: 32-36-0421Ooqdcbwls mammography of bilateral breastsMD Jesus Hoy Work Phone: Start: 72-66-5890Mvzfimsghfwx gastric emptying studyMD Jesus Hoy Work Phone: Start: 24-53-0250Issuz X-ray of right wristMD Jesus Hoy Work Phone: Start: 98-83-8745Gqynl X-ray of right wristMD Jesus Hoy Work Phone: Start: 68-12-7729Fwriw cultureMD Jesus Hoy Work Phone: [phone]-art: 33-42-9358Ltprn X-ray of right wristMD Jesus Hoy Work Phone: Start: 30-46-6345Kxcob depression screening assessment Zulema Wood MD Work Phone: Urine cultureMD Jesus Hoy Work Phone: Plan of Treatment DateCare ActivityDetailAuthorStart: 04-28-5671NgkhfenezcWray [facility] Work Phone: Start: 14-87-2906Utktkcxsyx A1c bpllbubimtnYiW5L [facility] Hospitaltart: 08-07-2025 End: 74-33-2371Zvskjeu encounter xbxhezayc08/24/2025 2:40 PM EST Office Visit [facility] [address] [place] [phone] Sean Greene MD [address] [place] [address] [facility]Start: 08-04-2025 [facility] Work Phone: Start: 65-75-9185Bqhutjymeu, [facility] Work Phone: Start: 61-29-4806Eooqo X-ray of right wristXR wrist RT min 3V*[facility] Hospitaltart: 79-28-4566PF Wrist - right GE 3 ViewsDunlap Memorial Hospitaltart: 07-10-2025 End: 68-58-9778Qpjsijn encounter /27/2025 2:20 PM EDT Office Visit [facility] [address] [place] [id number] Sean Greene MD [address] [place] [address] ArrivedNOMS Giron AllergyComment on above:ArrivedStart: 07-10-2025 End: 70-49-8975LIG W Auto Differential panel - BloodCBC and differential Lab Routine Recurrent sinus infections Expected: 07/10/2025 (Approximate), Expires: 07/10/2026NOMD HealthcareComment on above:Expected: 07/10/2025 (Approximate), Expires: 07/10/2026Start: 07-10-2025 End: 93-82-5972Utruuwuytx / Tetanus Antibody PanelDiphtheria / Tetanus Antibody Panel Lab Routine Recurrent sinus infections Expected: 07/10/2025 (Approximate), Expires: 07/10/2026NOMD HealthcareComment on above:Expected: 07/10/2025 (Approximate), Expires: 07/10/2026Start: 07-10-2025 End: 08-09-2485CUB-1/HIV-2 antigen/antibody combination immunoassayHIV-1 and HIV-2 antibodies Lab Routine Recurrent sinus infections Expected: 07/10/2025 (Approximate), Expires: 07/10/2026NOMD HealthcareComment on above:Expected: 07/10/2025 (Approximate), Expires: 07/10/2026Start: 07-10-2025 End: 97-50-1974IxY [Mass/volume] in Serum or PlasmaIgA Lab Routine Recurrent sinus infections Expected: 07/10/2025 (Approximate), Expires: 07/10/2026NOMD HealthcareComment on above:Expected: 07/10/2025 (Approximate), Expires: 07/10/2026Start: 07-10-2025 End: 97-92-2408ApZ [Units/volume] in Serum or PlasmaIgE Lab Routine Recurrent sinus infections Expected: 07/10/2025 (Approximate), Expires: 07/10/2026NOMD HealthcareComment on above:Expected: 07/10/2025 (Approximate), Expires: 07/10/2026Start: 07-10-2025 End: 23-13-9214VvD [Mass/volume] in Serum or PlasmaIgG Lab Routine Recurrent sinus infections Expected: 07/10/2025 (Approximate), Expires: 07/10/2026[facility] Work Phone: Comment on above:Expected: 07/10/2025 (Approximate), Expires: 07/10/2026Start: 07-10-2025 End: 53-28-8199VrO [Mass/volume] in Serum or PlasmaIgM Lab Routine Recurrent sinus infections Expected: 07/10/2025 (Approximate), Expires: 07/10/2026NOMD HealthcareComment on above:Expected: 07/10/2025 (Approximate), Expires: 07/10/2026Start: 07-10-2025 End: 63-38-3132Mcxexpq toxoid, IgGTetanus toxoid, IgG Lab Routine Recurrent sinus infections Expected: 07/10/2025 (Approximate), Expires: 07/10/2026NOMD HealthcareComment on above:Expected: 07/10/2025 (Approximate), Expires: 07/10/2026Start: 06-29-2025 End: 77-54-3895Opxxpsr encounter /16/2025 1:40 PM EDT Office Visit Rheumatology [address] [place] [address] Zulema Wood MD [address] [place] [address] 6 month follow upRheumatologyComment on above:6 month follow upStart: 21-06-5120Fksejoiixn, MandieHealthsouth [facility] Work Phone: Start: 74-47-0527Heeqwnm management education, guidance, and counselingDietary management education, guidance, and counseling [facility]tart: 74-24-9683Skqxmaf referralDoerik Gonzalez MD timeframe: 6 Months. (related to Body mass index [BMI] 40.0-44.9, adult)[facility] Hospitaltart: 50-82-7904VstmHealthsouth Rehabilitation Hospital [facility] Work Phone: Start: 06-22-2025 End: 11-26-5427Etxpqlf encounter ysdomnnyq89/09/2025 2:20 PM EDT Office Visit Rheumatology [address] [place], [place] [id number] Zulema Wood MD [address] [facility] [address] [place] [address] 6 month follow upRheumatologyComment on above:6 month follow upStart: 59-30-5117Xtadz X-ray of right shoulderXR shoulder RT min 2V*[facility] Hospitaltart: 64-17-7455UL Shoulder - right ViewsDunlap Memorial Hospitaltart: 05-24-2025 End: 83-56-5198XnqlHealthsouth Rehabilitation Hospital [facility] Work Phone: Start: 29-38-8617LQZRL-19 Vaccine ( season) COVID-19 Vaccine ( season)[facility] HealthcareStart: 91-44-0709Ulawqxoqb vaccinationMercy Health St. Joseph Warren Hospitaltart: 04-12-2025 End: 42-58-8953kxxdbucucz43/30/2025 7:00 AM EDT [facility] Neurology [address] [place] [address] Rachele Fenton APRN.CLINICAL GENETICIST [address] [place], [place] [id number] Tension headachesNeurologyComment on above:Tension headachesStart: 03-29-2025 End: 40-48-1837qiuokmgjpe20/16/2025 10:30 AM EDT [facility] [place] [address] [place] [address] Erik Pineda MD [address] [place] [address] [facility] Brain Tumor [place]intoComment on above:postopStart: 03-13-2025 [facility] Work Phone: Start: 03-06-2025 End: 73-00-2305Lqtdbcj evaluation of patient and beibfe9603/06/2025 10:30 AM EDT Nurse Visit [employer] [facility] [place] [address] [id number] Shakila Phillips RN [address] [place] [address] postop [facility] Brain Tumor [place]intoComment on above:postopStart: 03-02-2025 End: 86-18-0044Dbgfhbwzm to same day surgery ruppfd9703/02/2025 1:00 PM EDT [facility] Neurosurgery [facility] [address] [address] Stephanie Moy, ALLIGATOR HUNTER.CLINICAL GENETICIST [address] [place] [id number] Surgical Pathology discussionNeurosurgery Comment on above:Surgical Pathology discussionStart: 02-20-2025 End: 01-36-5550Yhcgvoyjr to same day surgery emklje3102/20/2025 12:45 PM EDT - 02/20/2025 6:45 PM EDT Surgery Admitting [address] [place] [address] Erik Pineda MD [address] [place] [address] ORBITOCRANIAL TO ANT CRAN FOSSA W/ SUPRAORB RIDGE OSTEOTOMY & ELEV FRONT&TEMP LOBEAdmittingComment on above:ORBITOCRANIAL TO ANT CRAN FOSSA W/ SUPRAORB RIDGE OSTEOTOMY & ELEV FRONT&TEMP LOBEStart: 02-20-2025 End: 97-38-3489Ufhkqjmpilcvv ant cranial fossa w/o orbit exntjORBITOCRANIAL TO ANT CRAN FOSSA W/ SUPRAORB RIDGE OSTEOTOMY & ELEV FRONT&TEMP LOBE Intracranial meningioma (HCC) Preop testing 02/20/2025 12:45 PM [facility] PAVILIONStart: 02-20-2025 End: 70-88-9560Hxvwh/exc les base ant crnl fossa indrl w/wo grfRESECTION LESION BASE OF ANTERIOR CRANIAL FOSSA INTRADURAL W/ DURAL REPAIR Intracranial meningioma (HCC) Preop testing 02/20/2025 12:45 PM [facility] MAIN PAVILIONStart: 45-81-7335Qsfqmmajku hospital visit by bavcljqno47/09/2025 12:45 PM EDT Hospital Encounter Admitting [address] [place] [id number] Erik Pineda MD [address] [place], [place] [id number] Intracranial meningioma (HCC) [D32.0], Preop testing [Z01.818]AdmittingComment on above:Intracranial meningioma (HCC) [D32.0], Preop testing [Z01.818]Start: 02-20-2025 End: 31-78-4287Dlspwutul to same day surgery btukzz3202/20/2025 7:30 AM EDT - 02/20/2025 1:30 PM EDT Surgery Admitting [address] [place] [address] Erik Pineda MD [address] [place] [address] ORBITOCRANIAL TO ANT CRAN FOSSA W/ SUPRAORB RIDGE OSTEOTOMY & ELEV FRONT&TEMP LOBEAdmittingComment on above:ORBITOCRANIAL TO ANT CRAN FOSSA W/ SUPRAORB RIDGE OSTEOTOMY & ELEV FRONT&TEMP LOBEStart: 02-20-2025 End: 48-96-6716Nutygyxbpcgzs ant cranial fossa w/o orbit exntjORBITOCRANIAL TO ANT CRAN FOSSA W/ SUPRAORB RIDGE OSTEOTOMY & ELEV FRONT&TEMP LOBE Intracranial meningioma (HCC) Preop testing 02/20/2025 7:30 AM [facility] MAIN PAVILIONStart: 02-20-2025 End: 09-27-5256Dqixg/exc les base ant crnl fossa indrl w/wo grfRESECTION LESION BASE OF ANTERIOR CRANIAL FOSSA INTRADURAL W/ DURAL REPAIR Intracranial meningioma (HCC) Preop testing 02/20/2025 7:30 AM [facility] MAIN PAVILIONStart: 15-46-5453Yeqgokotwa hospital visit by nrhelkdtk44/09/2025 7:30 AM EDT Hospital Encounter Admitting [address] [place] [address] Erik Pineda MD [address] [place] [address] Intracranial meningioma (HCC) [D32.0], Preop testing [Z01.818]AdmittingComment on above:Intracranial meningioma (HCC) [D32.0], Preop testing [Z01.818]Start: 02-15-2025 End: 80-23-4216Grghemvtc to same day surgery ficjtx5102/15/2025 2:30 PM EDT [facility] [address] [place] [address] Erik Pineda MD [address] [place] [address] surgery discussion/ consent / MRI review [facility] Brain Tumor [place]intoComment on above:surgery discussion/ consent / MRI reviewStart: 02-14-2025 End: 51-21-8769DFSJKJK BLOOD TYPECONFIRM BLOOD TYPE Blood Bank Routine Pre-op evaluation Expected: 02/14/2025, Expires: 05/16/2025leveland ClinicComment on above:Expected: 02/14/2025, Expires: 05/16/2025Start: 02-14-2025 End: 34-19-7449Biklhlzkik A1c in BloodHEMOGLOBIN A1C Lab Routine Pre-op evaluation Type 2 diabetes mellitus without complication, withoutlong-term current use of insulin (HCC) Expected: 02/14/2025, Expires: 05/16/2025[facility] Work Phone: comment on above:Expected: 02/14/2025, Expires: 05/16/2025Start: 02-14-2025 End: 74-92-9760Ndujhfp encounter fqaytinkr80/03/2025 9:20 AM EDT Appointment Radiology [address] [place] [address] MRI BRAIN WO/W IVCONRadiologyComment on above:MRI BRAIN WO/W IVCONStart: 02-14-2025 End: 76-55-4173zuvrqigdty16/03/2025 8:30 AM EDT Results Only [facility] Laboratory [address] [place] [address] LabsLorain [facility] LaboratoryComment on above:LabsStart: 02-14-2025 End: 94-58-1357Moxwxqtiob wedsaxjzhkae43/03/2025 7:40 AM EDT PAT Pre Anesthesia [address] [facility] [place] [address] 2, Pacc [place] [address] [facility] [place] [address] PRE OP CLEARANCEPre Anesthesia Comment on above:PRE OP CLEARANCEStart: 01-06-2025 End: 54-92-5403dpxxrbezwr09/25/2025 8:45 AM EDT [facility] Neurology Headache [facility] [address] [place] [address] Rachele Fenton, ALLIGATOR HUNTER.CLINICAL GENETICIST [address] [place] [address] I want to stop taking my medicine Neurology Headache [facility] Hospitalomment on above:I want to stop taking my medicineStart: 12-28-2024 End: 40-97-1855Gczwiio encounter dlyzzpkrv22/16/2025 9:20 AM EDT Office Visit Rheumatology [address] [place] [address] Zulema Wood MD [address] [place] [place] [address] 6 month follow upRheumatologyComment on above:6 month follow upStart: 18-46-8701Scaib X-ray of right wristXR wrist RT min 3V*[facility] Hospitaltart: 03-52-6465CY Wrist - right GE 3 ViewsDunlap Memorial Hospitaltart: 81-50-3690Ifokl X-ray of left shoulderXR shoulder LT min 2V*[facility] Hospitaltart: 44-88-5969OB Shoulder - left ViewsDunlap Memorial Hospitaltart: 01-01-2025Medicare [facility] Annual Wellness VisitMedicare Advantage Annual Wellness VisitMercy Health St. Joseph Warren Hospitaltart: 05-30-2024 End: 80-56-0838Csezfos encounter wlzzozxqo26/16/2024 9:40 AM EDT Office Visit Rheumatology [address] [place] [address] Zulema Wood MD [address] [facility] [place] [address] Return in about 8 months (around 05/29/2024) for arthralgias, FM .RheumatologyComment on above:Return in about 8 months (around 05/29/2024) for arthralgias, FM .Start: 30-65-3012Rwjvv-19 Vaccine ( season)Covid-19 Vaccine ( season)[facility] Hospitaltart: 16-40-0260Mpvrh-19 Vaccine ( season)Covid-19 Vaccine ( season)[facility]tart: 12-20-5194Cylqiuxqf vaccinationMercy Health St. Joseph Warren Hospitaltart: 04-04-2024 End: 39-13-1177Clthyzdjg to same day surgery iosrdi5504/04/2024 7:30 AM EDT - 04/04/2024 2:30 PM EDT Surgery Admitting [address] [place] [address] Erik Pineda MD [address] [place] [address] ORBITOCRANIAL TO ANT CRAN FOSSA W/ SUPRAORB RIDGE OSTEOTOMY & ELEV FRONT&TEMP LOBEAdmittingComment on above:ORBITOCRANIAL TO ANT CRAN FOSSA W/ SUPRAORB RIDGE OSTEOTOMY & ELEV FRONT&TEMP LOBEStart: 04-04-2024 End: 27-43-8023Cmqbzkkxxqoye ant cranial fossa w/o orbit exntjORBITOCRANIAL TO ANT CRAN FOSSA W/ SUPRAORB RIDGE OSTEOTOMY & ELEV FRONT&TEMP LOBE Intracranial meningioma (HCC) Preop testing 04/04/2024 7:30 AM EDTMC MAIN PAVILIONStart: 04-04-2024 End: 45-35-6681Ndkiw/exc les base ant crnl fossa indrl w/wo grfRESECTION LESION BASE OF ANTERIOR CRANIAL FOSSA INTRADURAL W/ DURAL REPAIR Intracranial meningioma (HCC) Preop testing 04/04/2024 7:30 AM EDTMC MAIN PAVILIONStart: 40-94-7020Dnjsytnvgv hospital visit by wsblhmqwy47/22/2024 7:30 AM EDT Hospital Encounter Admitting [address] [place] [address] Erik Pineda MD [address] [place] [address] Intracranial meningioma (HCC) [D32.0]AdmittingComment on above:Intracranial meningioma (HCC) [D32.0]Start: 03-22-2024 End: 36-05-1567Jctcuqs encounter procedurePre AnesthesiaComment on above:Preop, ORBITOCRANIAL TO ANT CRAN FOSSA W/ SUPRAORB RIDGE OSTEOTOMY & ELEV FRONT&TEMP LOBEPreop lab and nasal swabStart: 98-71-1251ZXABGNXY SCREENDIABETES SCREEN [place] ClinicStart: 46-01-9751Msoakhme ScreeningDiabetes ScreeningMercy Health St. Joseph Warren Hospitaltart: 02-05-2024 End: 33-52-8307alsxmfmsgj14/24/2024 7:00 AM EDT [facility] Neurology Headache [facility] [address] [place] [address] Rachele Fenton, ALLIGATOR HUNTER.CLINICAL GENETICIST [address] [place] [address] f/uNeurology Headache Istachatta FHCComment on above:f/uStart: 01-29-2024 End: 62-65-5607Aczprmo encounter procedureRADIO MRI LODI HOSPComment on above:R Sphenoid Wing MeningiomaStart: 01-21-2024 End: 50-51-7307mammkaqhab78/09/2024 2:30 PM EDT [facility] [place] [address] [place] [address] Laron Lou DO, PhD [address] [facility] [address] [place] [address] Check up for headachesE[facility] Health [facility] Brain Tumor [place]intoComment on above:Check up for headachesStart: 72-87-9447Wzhvwvprdy Health ScreeningBehavioral Health ScreeningCleSumma Health Akron Campustart: 27-04-3332Jsdlnwpanx AssessmentDepression AssessmentCleSumma Health Akron Campustart: 08-49-0892Uflib-19 Vaccine () Covid-19 Vaccine ()[facility] Hospitaltart: 35-78-2405Undowobpk vaccinationMercy Health St. Joseph Warren Hospitaltart: 92-56-7003BAUYZFDMM (FIT-DNA)COLOGUARD (FIT-DNA)[facility] Hospitaltart: 36-18-1194IhyevvienseFYZJQBBZMEPTqwroilxz Clinic Start: 89-30-4329YWPEHUNOVQ CANCER SCREENINGCOLORECTAL CANCER SCREENINGCleSumma Health Akron Campustart: 35-78-7658UD COLONOGRAPHYCT COLONOGRAPHYCleSumma Health Akron Campustart: 77-56-7786QGRTG OCCULT BLOODFECAL OCCULT BLOODMercy Health St. Joseph Warren Hospitaltart: 2022 Lipid 1996 panel - Serum or PlasmaLipid ScreeningMercy Health St. Joseph Warren Hospitaltart: 01-86-3405Eqegh panelLipid ScreeningMercy Health St. Joseph Warren Hospitaltart: 03-85-0617FFSUH SCREENLIPID SCREENCleSumma Health Akron Campustart: 84-44-3838Bdzhiueeo for malignant neoplasm of colonCleSumma Health Akron Campustart: 78-80-8421OSPTNOBQXKDZZLWEBXSWFDYDQP [facility] Hospitaltart: 47-36-0950YGHDUMTLVN ASSESSMENTDEPRESSION ASSESSMENT [facility] Hospitaltart: 74-85-6380Xperv X-ray of right wristXR wrist RT min 3V* [facility]tart: 05-06-2022 End: 52-15-6538Lrmnxul encounter procedureDeparted [facility]-XRay [facility] OrthoStart: 05-01-2022 End: 61-94-0089Ljxqgya encounter procedureDeparted [facility]-Lab Main CampusStart: 99-77-0801Amgcz depression screening assessmentDEPRESSION SCREENINGMercy Health St. Joseph Warren Hospitaltart: 82-47-6956MIfO/Tdap/Td Vaccines (2 - Tdap)DTaP/Tdap/Td Vaccines (2 - Tdap)[facility] HealthcareStart: 62-02-7825Edfms microalbumin profileDTaP,Tdap,Td Vaccine (1 - Tdap)[facility] Hospitaltart: 05-53-1801GWCDE-19 VACCINE (3 - Booster for Pfizer series)COVID-19 VACCINE (3 - Booster for Pfizer series)[facility] Hospitaltart: 27-28-0255HCURS-19 VACCINE (3 - Pfizer series)COVID-19 VACCINE (3 - Pfizer series)[facility] Start: 98-18-9206GFMWN-19 VACCINE (3 - Pfizer risk 4-dose series)COVID-19 VACCINE (3 - Pfizer risk 4-dose series)[facility]: 13-09-6144JRVBL-19 VACCINE (3 - Pfizer risk series)COVID-19 VACCINE (3 - Pfizer risk series) [facility] Hospitaltart: 34-74-4923CmctrlcsqdlJnkwwbzon ClinicStart: 2017 Screening for malignant neoplasm of breastMercy Health St. Joseph Warren Hospitaltart: 49-47-1013BCU TESTINGHPV TESTINGMercy Health St. Joseph Warren Hospitaltart: 46-78-5826Rlfavxxub for malignant neoplasm of cervixMercy Health St. Joseph Warren Hospitaltart: 63-58-7798YTN TESTINGPAP TESTING [facility]tart: 54-08-7129Myabnqwdp for malignant neoplasm of cervix [facility]tart: 77-57-6096Mjcmrblhz B Vaccine (1 of 3 - 19+ 3-dose series)Hepatitis B Vaccine (1 of 3 - 19+ 3-dose series)[facility]tart: 26-52-7442Yeaxpdymg B Vaccines (1 of 3 - 19+ 3-dose series)Hepatitis B Vaccines (1 of 3 - 19+ 3-dose series)[facility] RoadStart: 85-90-3771Rsbzcziyyylb vaccinationPneumococcal Vaccine (1 of 2 - PCV)[facility] Hospitaltart: 1994 SHINGRIX VACCINE (1 of 2)SHINGRIX VACCINE (1 of 2)[facility] Hospitaltart: 18-92-8205Skdhs microalbumin profileMercy Health St. Joseph Warren Hospitaltart: 48-56-7050Umjpfb PCP Team Chronic Disease VisitAnnual PCP Team Chronic Disease VisitDetwiler Memorial Hospital Start: 75-17-4966Eivyshx ScreeningAnxiety ScreeningMercy Health St. Joseph Warren Hospitaltart: 27-09-9707Bdyxpoqnxo ScreeningDepression ScreeningMercy Health St. Joseph Warren Hospitaltart: 95-21-1953Frlqbipjw B surface antibody levelLDL CholesterolDetwiler Memorial Hospital Start: 44-58-5725Ykmucpnj foot examinationDiabetic Foot ExamDetwiler Memorial Hospital Start: 12-67-7361Oermholo screeningDilated Retinal ExamMercy Health St. Joseph Warren Hospitaltart: 50-49-8879Agdfdcrqp B screeningUrine Albumin:Creatinine RatioDetwiler Memorial Hospital Start: 24-52-5790IODZVNNVDLQW (1 - PCV)PNEUMOCOCCAL (1 - PCV)[facility] Start: 47-33-5893Coqjteaoyc A1c javufpqzahtMkA3CVsyqdodkb ClinicStart: 82-76-4871VHU Vaccines (1 of 1 - Standard series)MMR Vaccines (1 of 1 - Standard series)[facility] RoadStart: 61-87-9036XWLNLIZBP B (1 of 3 - 3-dose series) HEPATITIS B (1 of 3 - 3-dose series)[facility] Hospitaltart: 85-08-9792Ilbvuqhpr B Vaccine (1 of 3 - 3-dose series)Hepatitis B Vaccine (1 of 3 - 3-dose series) [facility] Hospitaltart: 37-90-7755Iogaoifep for malignant neoplasm of colonNOMD Healthcare End: 14-09-0180Ncmgwun aminotransferase [Enzymatic activity/volume] in Serum or PlasmaALANINE AMINOTRANSFERASE / SGPT Lab Routine Inflammatory arthritis Every 3 months for 4 Occurrencesstarting 09/09/2024 until 09/06/2025[facility] on above:Every 3 months for 4 Occurrences starting 09/09/2024 until 09/06/2025 End: 99-38-9327Jpoehbx aminotransferase [Enzymatic activity/volume] in Serum or PlasmaALANINE AMINOTRANSFERASE / SGPT Lab Routine Encounter for medication monitoring Every 3 months for 4 Occurrences starting 10/10/2024 until 10/10/2025 [facility] HospitalComment on above:Every 3 months for 4 Occurrences starting 10/10/2024 until 10/10/2025 End: 36-22-3217Jxcqccibi aminotransferase [Enzymatic activity/volume] in Serum or PlasmaASPARTATE AMINOTRANSFERASE/SGOT Lab Routine Inflammatory arthritis Every 3 months for 4 Occurrencesstarting 09/09/2024 until 09/06/2025[facility] Work Phone: Comment on above:Every 3 months for 4 Occurrences starting 09/09/2024 until 09/06/2025 End: 47-04-2070Mywtxnkku aminotransferase [Enzymatic activity/volume] in Serum or PlasmaASPARTATE AMINOTRANSFERASE/SGOT Lab Routine Encounter for medication monitoring Every 3 months for 4 Occurrences starting 10/10/2024 until 10/10/2025 [facility] Work Phone: Comment on above:Every 3 months for 4 Occurrences starting 10/10/2024 until 10/10/2025acteria identified in Urine by CultureUrine [facility] End: 09-06-2025 reactive protein [Mass/volume] in Serum or PlasmaC-REACTIVE PROTEIN Lab Routine Inflammatory arthritis Every 3 months for 4 Occurrences starting 09/09/2024 until 09/06/2025[facility] ClinicComment on above:Every 3 months for 4 Occurrences starting 09/09/2024 until 09/06/2025 End: 10-10-2025 reactive protein [Mass/volume] in Serum or PlasmaC-REACTIVE PROTEIN Lab Routine Encounter for medication monitoring Every 3 months for 4 Occurrencesstarting 10/10/2024 until 10/10/2025UC HealthComment on above: Every 3 months for 4 Occurrences starting 10/10/2024 until 10/10/2025 End: 59-32-3125HQT panel - Blood by Automated countCOMPLETE BLOOD COUNT Lab Routine Inflammatory arthritis Every 3 months for 4 Occurrences starting until 09/06/2025[facility] ClinicComment on above:Every 3 months for 4 Occurrences starting 09/09/2024 until 09/06/2025 End: 54-32-9805TIT panel - Blood by Automated countCOMPLETE BLOOD COUNT Lab Routine Encounter for medication monitoring Every 3 months for 4 Occurrences starting 10/10/2024 until 10/10/2025leveland ClinicComment on above:Every 3 months for 4 Occurrences starting 10/10/2024 until 10/10/2025 End: 92-66-1140Eqnpuvxbuyx sedimentation rateSEDIMENTATION RATE, WESTERGREN Lab Routine Inflammatory arthritis Every 3 months for 4 Occurrences starting 09/09/2024 until 09/06/2025[facility] ClinicComment on above:Every 3 months for 4 Occurrences starting 09/09/2024 until 09/06/2025 End: 24-47-1746Fagqzgnvixw sedimentation rateSEDIMENTATION RATE, WESTERGREN Lab Routine Encounter for medication monitoring Every 3 months for 4Occurrences starting 10/10/2024 until 10/10/2025[facility] ClinicComment on above:Every 3 months for 4 Occurrences starting 10/10/2024 until 10/10/2025Insulin [Units/volume] in Serum or PlasmaMercy Health Urbana HospitalInsulin [Units/volume] in Serum or PlasmaMercy Health Urbana Hospital End: 68-10-2915HC Brain WO and W contrast IVMRI BRAIN WO/W IVCON Radiology Routine Benign neoplasm of meninges (HCC) 1 Occurrences starting 03/02/2025 until 04/01/2026[facility] Work Phone: Comment on above:1 Occurrences starting 03/02/2025 until 04/01/2026MR Skull base WO and W contrast IVMRI SKULL BASE WO/W IVCON Radiology Routine Benign neoplasm of meninges (HCC) 01/29/2024 1:56 PM EDT [facility] Work Phone: patient EducationRib fracture or bruised rib - ED discharge [facility] Work Phone: [facility] referralAs[facility]ab[facility] Work Phone: STREPTOCOCCUS PNEUMONIA AB (IGG) (23 SEROTYPES) STREPTOCOCCUS PNEUMONIA AB (IGG) (23 SEROTYPES) Lab Routine Recurrent sinus infections Ordered: 07/10/2025[facility] HealthcareComment on above:Ordered: [address] [place] [address] Immunizations Immunization DateImmunizationNotesCare LojydmlbQpsipuzf49-87-6324gruftrjrn virus vaccine, unspecified formulationPa 2 Work Phone: [facility] HospitalKzbhqv42-02-5156Lwrzwpaxa, injectable, Madin Fatimah Canine Kidney, preservative free, quadrivalentKirae Polanco [employer]OCK [employer] Work Phone: [facility] RoadBmmlkgjpci60-26-1558vztwijpzo virus vaccine, unspecified formulationFahad Corey MD Work Phone: [facility] HospitalRbodau61-33-6636bribxtigh, injectable, quadrivalent, preservative freeEstevan Polanco [employer] STOCK W[employer]ER Work Phone: [facility] RoadMbvalxwecq44-76-1044bfbitlx and diphtheria toxoids, adsorbed, preservative free, for adult use (5 Lf of tetanus toxoid and 2 Lf of diphtheria toxoid)Estevan Polanco [employer] STOCK W[employer]ER Work Phone: [facility]Barry RoadKeocadhihd96-24-9399Acdfesk -40 Christiano Bowles Other [employer] Other [id number] -40 Christiano Bowles Other [employer] Other [id number]-57 mRNA Comrk (Pfizer)MD Jesus Gonzalez Work Phone: [facility]04-21-2021COVID-19 mRNA Comrk (Pfizer)MD Jesus Gonzalez Work Phone: [facility]03-04-2021Kenalog -40 Christiano Bowles Other [employer] Other [id number], injectable, Madin Fatimah Canine Kidney, preservative free, quadrivalentEstevan Polanco [employer] W[employer]ER Work Phone: noCoxHealthTzuglbnewt91-61-0683Hws-EgpNndmxcta [place] Other [employer] Other [id number]-QajBufdakmb [place] Other [employer] Other [id number]-EkmPrsglfqa [place] Other [employer] Other [id number] -40 mgJennifer [place] Other noMengero Other [id number] A vaccine, adult dosageEstevan Jairon [employer] ST[employer] W[employer]ER Work Phone: [employer] FoodsCoxHealthIjhhwcjgnt24-17-6086Qoswhthhps InjectionJennifer Jelena Other [employer] Other [id number] InjectionJennifer Jelena Other [employer] Other [id number] -40 mgJennifer [place] Other [employer] Other [id number] virus vaccine, unspecified formulationEstevan Polanco [employer] ST[employer] W[employer]ER Work Phone: noCoxHealthTmnkwueofp24-92-0017Qskelkf -40 mgJennifer [place] Other [employer] Other [id number] -40 mgJennifer Jelena Other [employer] Other [id number], injectable, quadrivalent, contains preservativeBeti Bowles Other [facility]12-17-2014influenza, injectable, quadrivalent, preservative Frederick Jairon [employer] Work Phone: [facility] Payers DatePayer CategoryPayerPolicy [id number]-[id number] [id number] (Managed Care) [id number] [id number] [id number] [id number] 2024Unknown2010Medicare MEDICARE MEDICARE A AND B [id number] 2009-[facility] [phone] [address] [address] [place] [address] [id number] [id number] 2010Medicare 1.2.840.196168.1.13.159.2.7.3.910[id number] 2..0.1.080848.3.57[id number] 2.16.840.1.991495.3.57[id number] 2.160.1.627866.3.57[id number] 2.840.1.308293.3.57[id number] 2.840.1.378207.3.57[id number] 2.0.1.125184.3.57[id number] 2.0.1.161888.3.579.[id number] 2.0.1.743059.3.579.2.[id number] 2.840.1.786672.3.57[id number] 2.0.1.685444.3.579.2.379459-91-2230Ckcwojr77329174 2.0.1.904320.3.579.2.[id number] 2..1.095559.3.579.2.397964-11-7291Nhgrigl18106539 2..1.091490.3.579.2.654194-62-4386Pdbzxxf7346998 2..1.923839.3.579.2.1259 [id number] 2.840.1.295853.19 [id number] [id number]/HFA/FAP [id number] s8n3s096-03e1-2687-6108-948qkz0m0rf0Zzfrbtk36346539 2.840.1.171987.3.579.2.341Ychqyri93958837 2.16.840.1.297347.3.579.2.531 [id number] 2.16.840.1.2[id number] 2.16.840.1.6[id number] 2.16.840.1.207230.3.579.2.531 [id number] 2.16.840.1.223726.3.579.2.099Bduyziy27522369 2.16.840.1.885268.3.579.2.833Hgwmlpk07191987 2.16.840.1.735235.3.579.2.531 Anrcixh48741631 2.16840.1.393893.3.579.2.045Sxgibzh53341713 2.16.840.1.879933.3.579.2.441Scqlcfy38962229 2.16.840.1.457369.3.579.2.531 Qbazhzs77647619 2.16.840.1.517299.3.579.2.376Gymxyuf60389253 2.16840.1.875223.3.579.2.655Caevzez26619610 2.840.1.648235.3.579.2.531 Nvmvdqb05967945 2.840.1.363352.3.579.2.531 Social History DateTypeDetailFacilityStart: 03-04-2021 End: 13-96-0826Iubrpju smoking status NHISEx-smokerMercy Health St. [facility] Hospitaltart: 03-04-2021 End: 19-50-6492Jkwfqck use and exposureSmokeless tobacco non-userMercy Health St. Joseph Warren Hospitaltart: 46-94-0827Eyc Assigned At BirthFemaleCHolmes County [facility]: 01-10-2022 End: 40-96-6661Emdaxwzc to SARS-CoV-2 (event)Not sureMer[address] Health [address] Joseph Warren Hospitaltart: 09-22-2022 End: 63-16-6765Efe Assigned At BirthDetwiler Memorial HospitalHistory of tobacco use Current smokerMercy Health St. Joseph Warren Hospitaltart: 09-22-2022 End: 45-14-1301Coqfdux of Social functionMercy Health St. Joseph Warren Hospitaltart: 08-15-2012 End: 31-24-2290Bcwjw Depression Screening Cfywxnunwh3Zwzdiheaj ClinicStart: 09-90-5978Dwrwwh identityIdentifies as female gender (finding)[facility] Start: 93-17-3691Hpqwga orientationHeterosexual (finding)[facility]: 06-01-2023 End: 17-11-0181Qzllvze intakeCurrent drinker of alcohol (finding)[facility] HospitalHistory of tobacco useCigarette SmokerMOUNTAIN VIEW [facility]ITAL HealthcareStart: 03-25-2023 Tobacco Comment>10 years since last smokedMOUNTAIN VIEW HOSPITAL HealthcareStart: 03-25-2023 Alcohol Commentcaffeine: stackersMOUNTAIN VIEW HOSPITAL HealthcareStart: 96-58-1558Ycp assigned at birthNot on fileMOUNTAIN VIEW HOSPITAL HealthcareStart: 09-17-2024 End: 55-06-6032SbgDitbxx (finding)[facility] Hospitaltart: 13-47-0375Dbihsvi CommentStarted 1994. Quit 2010. [address] Warren Hospitaltart: 37-24-7473Qdnkzky Comment3-[address] Joseph Warren Hospitaltart: 03-13-2025 End: 74-91-8491Xfpwsfv smoking status NHISUnknown if ever smokedCity Hospital DistrictStart: 00-32-9125Jyskpyy intakeAlcohol Use [facility] Pueblotart: 06-05-2025 End: 68-73-1057Fmlivwg smoking status NHISNever smoked tobacco (finding) [facility] Hospitaltart: 62-02-9654Oayrysn intake (observable entity)Alcohol Use [facility] DistrictStart: 06-27-2025 Tobacco use and exposureSmoking Tobacco Use [facility] SystemNEGATED: Highlighted [facility], IncNEGATED: Highlighted rowStart: 82-08-6288Tdjmrct of tobacco useEx-cigarette smokerHealthsouth Rehabilitation Hospital Of Colorado SpringsNEGATED: Highlighted rowStart: 77-69-8576Allabo-related BehaviorCaffeine Use DetailsHealthsouth Rehabilitation Hospital Of [facility] Springs Medical Equipment Procedure CodeEquipment CodeEquipment Original TextEquipment IdentifierDates Start: 44-12-1568Lzbyz Duramatrix-Onlay Plus Collagen 2x2in Dural Regeneration Membrane - [id number]: 45-36-7565Oadhg Bone 8 Hole Profile - [id number]: 41-09-9029Hkqrw 3d Large Box Low Profile Titanium Bone 2x2 Hole 1.5mm Screw - [id number]: 44-58-8927Adcgz Low Profile Titanium 12mm Bone 2 Hole Bar 1.5mm Screw Nonsterile - [id number]: 84-04-5139Hvyrq 10mm Medium Titanium [place] Hole Low Profile Tab 1.5mm Screws - [id number]: 84-59-2438Bitph Bone Bonesteel Neuro 3 4mm 1.5mm Self Drill Axial Stability Latex - [id number]: 59-28-7936Mawtmqras Neuro Axs Neuro Screw Disc Pre-Loaded 1.5mm X [id number] Start: 02-20-2025 Clinical Notes 03-04-2021 to 07-10-2025 Note Date & QywlRcfwZlzfrcvy96-96-4635 History of Present illness Narrative* Sean Greene MD - 07/10/2025 2:20 PM EDT Kourtney Novak is a very pleasant 49 y.o. year old female who comes to the office today with the chief complaint of fatigue. She sees the hyperbaric nurse because she was having tendinitis. 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 She was placed on plaquenil which was helpful for her lungs. She saw a court messenger and was told she might have SLE. [...] accident and she understands. documented in this encounterSaint Luke's North Hospital–Barry RoadVmddykvgvw86-09-0653 Evaluation note* Type Assessment Date assessment Body mass index [BMI] 40.0-44.9, adult [facility] Work Phone: 1(337) 959-475010-14-2025 History of Present illness Narrative* Encounter Date Complaint History Of Prese nt Illness quinton doyle [facility] Work Phone: 1(821) 133-713710-14-2025 Instructions* Date Instruction Additional Infor mation Giving encouragement to exercise Related to Body mass index [BMI] 40.0-44.9, adult Dietary management e ducation, guidance, and counseling Related to Body mass index [BMI] 40.0-44.9, adult [facility] Work Phone: 1(797) 147-302910-09-2025 NoteHNO ID: [id number] Author: ZULEMA WOOD MD Service: ? Author [...] midline. There are no (more content not included)...[facility]10-06-2025 Radiology Diagnostic [facility]BL[facility] Main [place] [address] [place] [address] CT Scan Report Signed Patient: Kourtney Novak MR#: [id number] : 1975 Acct:[id number] Age/Sex: 49 / F ADM Date: 5 Loc: CT Room: Type: [facility] Attending Dr: Jesus Gonzalez MD Copies to: [...] Lincoln Hoffmann MD 06/19/252314 Signed By: 06/19/252318 [facility] Work Phone: 1(958) 715-6049206327-67-2659 Radiology Diagnostic study noteBLANCH[facility] Main [place] [address] [place] [address] Ultrasound Report Signed Patient: Kourtney Novak MR#: [id number] : 1975 Acct:[id number] Age/Sex: 49 / F ADM Date: 5 Loc: Room: Type: [facility] Attending Dr: Jesus Gonzalez MD Ordering Provider: [...] Gray M.D. 06/13/2025 10:29 PM Dictation Location: [place] [address] Tech: Tana Chahal Transcribed By: GRACIE 06/13/252228 Dictated By: George Gray DO 06/13/252225 Signed By: 06/13/252228 [facility]09-23-2025 Telephone encounter Note* Telephone Encounter - Lamar [...] deformities. No distinct acute displaced rib fracture. [facility] Ecfpjgzdtu67-34-5399 Miscellaneous Notes* Telephone Encounter - Lamar Dorsey [...] acute displaced rib fracture. documented in this encounterSaint Luke's North Hospital–Barry RoadRiopbisyjo16-06-9863 History of Present illness Narrative* Lamar Dorsey NP - 06/05/2025 5:40 PM EDT Images from the original note were not included. [address] , [address] [facility], [address] P: [phone] F: [phone] [facility] Historian of [facility]: patient Kourtney Novak is a 49 [...] fracture. See telephone encounter documented in this encounterSaint Luke's North Hospital–Barry RoadWzxsmspxsl40-55-4959 Evaluation note* Diagnosis Onset Date Resolution Status Admit Date Tear of right supraspinatus tendon acuteSeptember 2024 1:21pm [facility] Work Phone: 1(703) 162-295809-16-2025 Evaluation note* Diagnosis Onset Date Resolution Status Admit Date Tear of right supraspinatus tendon acuteSeptember 2024 1:21pmOsteochondrosis of lunate of right wristacute July 12, 2025 3:22pmRight wrist painacuteOct2024 3:22pm [facility] Work Phone: 1(688) 277-245009-10-2025 Evaluation note* Type Assessment Date assessment Encounter for Depo-Provera contr aception [facility] Work Phone: 1(869) 981-2218862805-75-0209 History of Present illness Narrative* Yola Wilburn NP - 05/23/2025 1:20 PM EDT Images from the original note were not included. [address] , [address] [facility], [address] P: [phone] F: [phone] HPI Historian of HPI: patient Kourtney Novak [...] (Toradol) injection 60 mg documented in this encounterSaint Luke's North Hospital–Barry RoadZibbnbvywm39-10-1554 Telephone encounter Note* Telephone Encounter - Gifty [...] A DAY NEEDED Pharmacy Name: [facility]09-04-2025 Miscellaneous Notes* Telephone Encounter - Gifty [...] Pharmacy Name: [facility] documented in this encounterDetwiler Memorial Hospital08-13-2025 Telephone encounter Note * Telephone Encounter - La Nena Waterman LPN - 04/26/2025 9:34 AM EDT Eye exam was completed and received 12/20/2024. [facility]08-13-2025 Miscellaneous Notes* Telephone Encounter - La [...] Visit Type Date Time Department [facility] 06/22/2025 2:20 PM [facility] [...] Last eye exam 12/20/24 documented in this encounterDetwiler Memorial Hospital08-13-2025 Telephone encounter Note * Telephone Encounter - Zulema Wood MD - 04/26/2025 8:38 AM EDT She needs an eye exam if she wants future refills. The following approved medication requests have been transmitted electronically. Requested Prescriptions Signed Prescriptions Disp Refills hydrOXYchloroQUINE (PLAQUENIL) 200 mg tablet 60 tablet 2 Sig: TAKE 1 TABLET BY MOUTH TWICE A DAY Authorizing Provider: ZULEMA WOOD MD [facility]08-12-2025 Telephone encounter Note* Telephone Encounter - [...] Visit Type Date Time Department [facility] 06/22/2025 2:20 PM [facility] [...] Lab Orders None Last eye exam 12/20/24 [facility]07-30-2025 History of Present illness Narrative* aRchele Fenton, MARILEE.CLINICAL GENETICIST - 04/12/2025 7:00 AM EDT Headache Center [...] visit. Either the patient or their legal corporate sales representative has been informed of the [...] Prescription for 10 mg nortriptyline sent to [facility], 2-month supply provided to accommodatetapering schedule. [...] with the patient: yes Rachele Fenton APRN.CLINICAL GENETICIST HEADACHE SCORES: 02/01/2024 12/30/2024 04/10/2025 Headache Questions [...] soft tissue component identified in the orbit. Claims Processor: PSCB Transcribe Date/Time: Jan 31 2024 3:33P [...] articulation, and clear,coherent, and relevant. Short and shoe coverer memory, cognition and general fund of knowledge [...] the visit was discussed with the patient/authorized corporate sales representative; all questions welcomed and answered. Patient/authorized corporate sales representative agreed to proceed Rachele Fenton APRN.CNP Headache Section [facility] April 12, 2025 documented in this encounterDetwiler Memorial Hospital07-30-2025 NoteHNO ID: [id number] Author: RACHELE FENTON APRN.CNP Service: ? Author [...] visit. Either the patient or their legal corporate sales representative has been informed of the [...] Prescription for 10 mg nortriptyline sent to [facility], 2-month supply provided to accommodate tapering [...] by mouth twice daily. (more content not included)...[facility]07-16-2025 History of Present illness Narrative* Erik Pineda MD - 03/29/2025 10:30 AM EDT Images from the original note were not included. SECTION OF SKULL BASE SURGERY MINIMALLY INVASIVE CRANIAL BASE & PITUITARY SURGERY PROGRAM [facility] [place], [facility] TELEMEDICINE FOLLOW-UP VISIT This is a virtual visit. It required patient-provider interaction for the medical decision making as documented below. Kourtney Novak has consented for this telemedicine encounter. I have communicated my name and active licensure. The patient's identity and physical location were verified at the time of this visit. Either the patient or their legal corporate sales representative has been informed of the [...] meningioma, WHO grade 1 documented in this encounterDetwiler Memorial Hospital07-16-2025 NoteHNO ID: [id number] Author: ERIK PINEDA MD Service: ? Author Type: Physician Type: Progress Notes Filed: 03/29/2025 10:48 Note Text: SECTION OF SKULL BASE SURGERY MINIMALLY INVASIVE CRANIAL BASE AND PITUITARY SURGERY PROGRAM [facility] [place], [facility] TELEMEDICINE FOLLOW-UP VISIT This is a virtual visit. It required patient-provider interaction for the medical decision making as documented below. Kourtney Novak has consented for this telemedicine encounter. I have communicated my name and active licensure. The patient's identity and physical location were verified at the time of this visit. Either the patient or their legal corporate sales representative has been informed of the [...] (SYNTHROID) 50 mcg tablet (more content not included)...[facility]07-14-2025 Telephone encounter Note* Telephone Encounter - Chana Rose - 03/27/2025 9:35 AM EDT Hospital Discharge Summary faxed to Dr. Hoy. Saenz [facility]07-14-2025 Miscellaneous Notes* Telephone Encounter - Chana Rose - 03/27/2025 9:35 AM EDT Hospital Discharge Summary faxed to Dr. Hoy. Saenz documented in this encounterDetwiler Memorial Hospital07-09-2025 Evaluation note* Diagnosis Onset Date Resolution Status Admit Date Osteochondrosis of lunate of right wrist acuteJuly 2024 3:55pmRight wrist painacuteJuly 2024 3:55pm [facility] Work Phone: 1(362) 924-893507-09-2025 Evaluation note* Diagnosis Onset Date Resolution Status Admit Date Osteochondrosis of lunate of right wrist acuteJuly 2024 3:55pmRight wrist painacuteJuly 2024 3:55pmTear of right supraspinatus tendonacuteSeptember 2024 1:21pm [facility] Work Phone: 1(163) 493-686207-07-2025 Telephone encounter Note* Telephone Encounter - Izabela Patton MD - 03/20/2025 10:26 AM EDT Picture uploaded in [employer] reviewed. Wound is healing appropriately. Will complete the 10 days dose of Bactrim. Prescribed accordingly. [facility]07-07-2025 Miscellaneous Notes* Telephone Encounter - Izabela Patton MD - 03/20/2025 10:26 AM EDT Picture uploaded in [employer] reviewed. Wound is healing appropriately. Will complete the 10 days dose of Bactrim. Prescribed accordingly. documented in this encounterDetwiler Memorial Hospital07-02-2025 NoteHNO ID: [id number] Author: IZABELA PATTON MD Service: ? Author Type: Fellow Type: Progress Notes Filed: 03/15/2025 12:44 Note Text: SECTION OF SKULL BASE SURGERY MINIMALLY INVASIVE CRANIAL BASE AND PITUITARY SURGERY PROGRAM [facility] [place], [facility] CC: Patient Care Team: Jesus Gonzalez MD [...] changes. PLAN: - Send a picture in [facility] on Thursday. - Bactrim DS x [...] elevates symmetrically and uvul (more content not included)...[facility]07-02-2025 History of Present illness Narrative* Izabela Patton MD - 03/15/2025 12:31 PM EDT Images from the original note were not included. SECTION OF SKULL BASE SURGERY MINIMALLY INVASIVE CRANIAL BASE & PITUITARY SURGERY PROGRAM [facility] [place], [facility] CC: Patient Care Team: Jesus Gonzalez MD [...] changes. PLAN: - Send a picture in [employer] on Thursday. - Bactrim DS x 5 [...] No Does patient want to see a Manager Specialty? No (yes to any of above refer patient to schedulers for dietitian appointment) ) Does patient have any new or increased numbness or tingling of extremities? No Is patient interested in fertility information? No Does patient need any prescription refills? No Does patient have an advanced directive in place? No, Patient referred to Resource Center documented in this encounterDetwiler Memorial Hospital07-02-2025 Telephone encounter Note * Telephone Encounter - Izabela Patton MD - 03/15/2025 12:17 PM EDT Ordered Bactrim. [facility]07-02-2025 Miscellaneous Notes* Telephone Encounter - Izabela Patton MD - 03/15/2025 12:17 PM EDT Ordered Bactrim. documented in this encounterDetwiler Memorial Hospital07-02-2025 NoteHNO ID: [id number] Author: BESS DO MA Service: ? Author Type: Tripoler Type: Progress Notes Filed: 03/15/2025 12:44 Note Text: Additional intake questions: Has the patient had fever, nausea, vomiting, diarrhea, constipation, fatigue for > 1 week? No Does the patient have a decreased appetite? No Does patient want to see a Manager Specialty? No (yes to any of above refer patient to schedulers for dietitian appointment) ) Does patient have any new or increased numbness or tingling of extremities? No Is patient interested in fertility information? No Does patient need any prescription refills? No Does patient have an advanced directive in place? No, Patient referred to Resource Center Electronically Signed By: Bess Do [facility] 03-13-2025 Telephone encounter Note* Telephone Encounter - [...] A DAY NEEDED Pharmacy Name: [facility]06-30-2025 Miscellaneous Notes* Telephone Encounter - Gifty [...] Name: RIP Durbin Michelle documented in this encounterDetwiler Memorial Hospital06-30-2025 Evaluation note* Type Assessment Date assessment Encounter for Depo-Provera contr aception [facility] Work Phone: [phone]) [phone] Telephone encounter Note* Telephone Encounter - Shakila Phillips RN - 03/08/2025 4:18 PM EDT Images from the original note were not included. [facility]06-25-2025 Miscellaneous Notes* Telephone Encounter - Shakila Phillips RN - 03/08/2025 4:18 PM EDT Images from the original note were not included. documented in this encounterDetwiler Memorial Hospital06-23-2025 Telephone encounter Note * Telephone Encounter - Zulema Wood MD - 03/06/2025 12:40 PM EDT The following approved medication requests have been transmitted electronically. Requested Prescriptions Pending Prescriptions Disp Refills DULoxetine (CYMBALTA) 60 mg capsule [Pharmacy Med Name: DULOXETINE HCL DR 60 MG CAP] 90 capsule 2 Sig: TAKE 1 CAPSULE BY MOUTH EVERY DAY Zulema Wood MD [facility]06-23-2025 Miscellaneous Notes* Telephone Encounter - Zulema [...] Visit Type Date Time Department [facility] 06/22/2025 2:20 PM [facility] [...] meningioma (HCC), Preop testing documented in this encounterDetwiler Memorial Hospital06-23-2025 NoteHNO ID: [id number] Author: SHAKILA PHILLIPS RN Service: ? Author [...] request and reach out to her through [employer] with a reply. Shakila Phillips RN, Care CoordinatorGreen [facility]06-23-2025 History of Present illness Narrative* Shakila Phillips, [...] request and reach out to her through [employer] with a reply. Shakila Phillips RN, Aircraft Manager * Britton Tamez LPN - 03/06/2025 10:07 AM EDT Additional intake questions: Has the patient had fever, nausea, vomiting, diarrhea, constipation, fatigue for > 1 week? No Does the patient have a decreased appetite? No Does patient want to see a Manager Specialty? No (yes to any of above refer patient to schedulers for dietitian appointment) ) Does patient have any new or increased numbness or tingling of extremities? No Is patient interested in fertility information? NA Does patient need any prescription refills? No Does patient have an advanced directive in place? Yes, copies are in [facility] documented in this encounterDetwiler Memorial Hospital06-23-2025 Telephone encounter Note * Telephone Encounter [...] Visit Type Date Time Department [facility] 06/22/2025 2:20 PM [facility] [...] Assoc. diagnoses: Intracranial meningioma (HCC), Preop testing [facility]06-23-2025 NoteHNO ID: [id number] Author: BRITTON TAMEZ LPN Service: ? Author Type: LICENSED NURSE Type: Progress Notes Filed: 03/06/2025 14:25 Note Text: Additional intake questions: Has the patient had fever, nausea, vomiting, diarrhea, constipation, fatigue for > 1 week? No Does the patient have a decreased appetite? No Does patient want to see a Manager Specialty? No (yes to any of above refer patient to schedulers for dietitian appointment) ) Does patient have any new or increased numbness or tingling of extremities? No Is patient interested in fertility information? NA Does patient need any prescription refills? No Does patient have an advanced directive in place? Yes, copies are in Epic Electronically Signed By: SEBASTIAN [facility]Access [facility] History of Present illness Narrative* Stephanie Moy APRN.CLINICAL GENETICIST - 03/02/2025 1:00 PM EDT Images from the original note were not included. [facility] [place] [facility] TELE-HEALTH VISIT PROGRESS NOTE This is a virtual visit using [employer] video visit. It required patient-provider interaction for themedical decision making as documented below. I have communicated my name and active licensure. The patient's identity and physical location wereverified at the time of this visit. Either the patient or their legal corporate sales representative has been informed of the [...] which included preparing to see the patient, gndc-dp-wexy patient care, completing clinical documentation, obtaining and/or reviewing separately obtained history, performing a medically appropriate examination, counseling and educating the pat ient/family/caregiver, ordering medications, tests, or procedures, communicating with other HCPs (not separately reported), independently interpreting results (not separately reported), communicatingresults to the patient/family/caregiver, and care coordination (not separately reported). Stephanie Moy APRN.CLINICAL GENETICIST Certified Nurse Practitioner cc: Erik Pineda MD - [facility] HPI: Kourtney Novak is a pleasant is [...] resection. No residual mass or pathologic enhancement. Claims Processor: PSCB Transcribe Date/Time: Feb 21 2025 11:17A [...] the tumor with antibodies to SSTR2a and [place] was performed on block A1. The tumor [...] 2025 10:13 AM Gross examination performed at [facility], [address] [place] [address] Clinical History Pre-op diagnosis: Intracranial meningioma (HCC) [D32.0] Preop testing [Z01.818] Performing Lab Diagnostic interpretation performed at: [facility] [facility], [address] [place] [address], [facility] [place] [address] CLIA# [id number] Sandblaster Glass: Charan Ryan MD Disclaimer Laboratory Developed Test (LDT) Disclaimer: Performance characteristics of immunohistochemical, immunofluorescent, and chromogenic in-situ hybridization tests have been determined by the performing laboratory within [facility]'s Andrzej Mckeon Pathology and Laboratory Medicine Department ([facility], [facility], [facility], [facility], [facility], [facility], or [facility]) in a manner consistent with CLIA requirements. One or more of these tests may not have been cleared or approved by the FDA. [facility] is regulated under CLIA as qualified to perform high- complexity testing. These tests are used for clinical purposes. These should not be regarded asinvestigational or for research. Positive and negative controls stain appropriately. KPS: 90 documented in this encounterDetwiler [facility] Hospital06-19-2025 NoteHNO ID: [id number] Author: STEPHANIE MOY APRN.CNP Service: ? Author Type: Nurse Practitioner Type: Progress Notes Filed: 03/02/2025 13:22 Note Text: [facility] [place] [facility] TELE-HEALTH VISIT PROGRESS NOTE This is a virtual visit using [employer] video visit. It required patient-provider interaction for the medical decision making as documented below. I have communicated my name and active licensure. The patient's identity and physical location were verified at the time of this visit. Either the patient or their legal corporate sales representative has been informed of the [...] which included preparing to see the patient, oawo-vr-flcw patient care, completing clinical documentation, obtaining and/or reviewing separately obtained history, performing a medically appropriate examination, counseling and educating the patient/family/caregiver, ordering medications, tests, or procedures, communicating with other HCPs (not separately reported), independently interpreting results (not separately reported), communicating results to the patient/family/caregiver, and care coordination (not separately reported). Stephanie Moy APRN.CLINICAL GENETICIST Certified Nurse Practitioner cc: Erik Pineda MD - [facility] HPI: Kourtney Novak is a pleasant is [...] Face symmetric with smile (more content not included)...[facility]06-16-2025 Telephone encounter Note* Telephone Encounter - [...] EVERY DAY Authorizing Provider: ZULEMA WOOD MD [facility]06-16-2025 Miscellaneous Notes* Telephone Encounter - Zulema [...] Visit Type Date Time Department ASHLEY [facility] MEDICAL 06/22/2025 2:20 PM [facility] [...] meningioma (HCC), Preop testing documented in this encounterDetwiler [facility]06-13-2025 Telephone encounter Note * Telephone Encounter [...] Visit Type Date Time Department ASHLEY [facility] MEDICAL 06/22/2025 2:20 PM [facility] [...] Assoc. diagnoses: Intracranial meningioma (HCC), Preop testing [facility]06-12-2025 Telephone encounter Note* Telephone Encounter - [...] out for questions/ concerns/updates. Shakila Phillips RN, Aircraft Manager T [facility]06-12-2025 Telephone encounter Note* Telephone Encounter - Shakila Phillips RN - 02/23/2025 11:24 AM EDT General Call Caller : Pt Contact Reason for Call : Pt has question regards oxycodone meds. Patient requesting return call ? Yes [facility]06-12-2025 Miscellaneous Notes* Telephone Encounter - Shakila Phillips [...] out for questions/ concerns/updates. Shakila Shidiac RN, Aircraft Manager * Telephone Encounter - Shakila Phillips RN [...] return call ? Yes documented in this encounterDetwiler [facility] Hospital06-12-2025 Telephone encounter Note * Telephone Encounter - Kaci Maya - 02/23/2025 9:46 AM EDT General Call Caller : Pt Contact Reason for Call : Pt has question regards oxycodone meds. Patient requesting return call ? Yes [facility]06-11-2025 NoteHNO ID: [id number] Author: DAYANNA CLEMENTE ? Service: Pharmacy Author Type: Chairlift Operator Type: Plan of Care Filed: 02/22/2025 12:08 Note Text: PHARMACY BEDSIDE DELIVERY SERVICE Patient Name: Kourtney Novak The marked outpatient medications were Filled at: [facility] and delivered to the patient's [...] Dayanna Clemente PAGER: February 22, 2025 10:56 [facility]06-11-2025 NoteHNO ID: [id number] Author: DAYANNA CLEMENTE, Mookie Service: Pharmacy Author Type: Chairlift Operator Type: Plan of Care Filed: 02/22/2025 10:56 Note Text: Insurance investigation completed Patient has active prescription insurance: Yes - Patient's insurance is in-network with [facility] Insurance loaded into [place]: Yes Test claim was completed to verify insurance is active: Successful Any questions, please reach out to your medication access specialist.[facility]06-10-2025 NoteHNO ID: [id number] Author: HERSON OZUNA RN Service: Nursing Author Type: Registered Nurse Type: Progress Notes Filed: 02/21/2025 20:22 Note Text: At 16:15 PM, Received report from [facility] [place]. At 17:00 PM, Patient transferred to the nursing division.[facility]06-10-2025 NoteHNO ID: [id number] Author: JOVANNY CHRISTENSEN RN Service: Care Management Author Type: Registered Nurse Type: Care Mgt Initial Assessment Filed: 02/21/2025 15:16 Note Text: CARE MANAGEMENT: ASSESSMENT AND DISCHARGE PLAN SERVICE DATE: February 21, 2025 SERVICE TIME: 3:14 PM PCP: Jesus Gonzalez MD Primary Contact: Extended Emergency Contact Information Primary Emergency Contact: Christiano Saini Address: [address] [place] [id number] [facility] Mobile Relation: Son Secondary Emergency Contact: Laith Saini Address: [address] [place] [id number] [facility] Mobile Relation: Son Admission Status: Inpatient Insurance Provider: [employer] HMO Discharge Planning requested by: Per Department Practice Potential Transition Plans Home Advance Directives Current Advance Directive: None [place] Explained: [place] Given: No Reason Not Given: [...] Novak DATE: February 21, 2025 TIME: 3:14 [facility]06-10-2025 NoteHNO ID: [id number] Author: GLORIA PEÑALOZA PA-C Service: Neurosurgery Author Type: Physician Investment Officer Type: Progress Notes Filed: 02/21/2025 12:40 Note Text: SERVICE DATE: 02/21/2025 SERVICE TIME: 8:19 AM NEUROSURGERY SKULL BASE INPATIENT PROGRESS NOTE Please contact NSGY business solutions [place] [phone] for questions/concerns about this patient from 3PM [...] Non-tender NEUROLOGY: Motor: UE BICEPS TRICEPS DELTS Video Production Intern HI R 5/5 5/5 5/5 5/5 5/5 [...] 18 Gauge 1 day Peripheral 02/20/25 1245 [facility] Short Right Hand 18 Gauge <1 day Drain Duration Indwelling Urinary Catheter 02/20/25 1301 [facility] Nieves 16 Fr <1 day LABS: Na: Recent Labs 02/21/25 0437 02/20/25 1143 NA 138 137 1. Out of bed and ambulating: No Needs PT or OT Evaluation: No 2. Central line present? No 3. Continued need for urinary catheter? D/C Urinary Catheter 4. Nutrition: PO- Yes. 5. Restraints No. 6. Last BM ACCOUNT GENERAL MANAGER Assessment AND Plan Active Hospital Problems as [...] treating with decadron 8bid (SSI, PPI) with fdc taper plan off over 1 week At risk for seizures 02/21/2025 - Pre (more content not included)...[facility]06-10-2025 NoteHNO ID: [id number] Author: ERIK PINEDA MD Service: Neurosurgery Author [...] Erik Pineda MD Date: 02/21/2025 Time: 9:02 [facility]06-09-2025 NoteHNO ID: [id number] Author: TWYLA COOLEY MD Service: Neurosurgery Author [...] Pineda Signature: Twyla Cooley MD PGY4, Neurosurgery [facility] On-call pager: [phone] [facility]06-09-2025 NoteHNO ID: [id number] Author: ZARA RAMACHANDRAN DO Service: ? Author [...] February 20, 2025 TIME: 2:16 PM CSN: [id number] NoteHNO ID: [id number] Author: CLARISA GARZA MD Service: ? Author [...] Successful intubation technique: video laryngoscopy Devices used: Test.tv Endotracheal tube insertion site: oral Blade: Cora [...] February 20, 2025 TIME: 2:00 PM CSN: [id number] [facility] Telephone encounter Note* Telephone Encounter - Shakila Phillips RN - 02/17/2025 3:53 PM EDT Spoke with the patient - we discusses signing the consent after she checks in for her surgery on Thursday02/20/25. [facility]06-06-2025 Miscellaneous Notes* Telephone Encounter - Shakila Phillips RN - 02/17/2025 3:53 PM EDT Spoke with the patient - we discusses signing the consent after she checks in for her surgery on Thursday02/20/25. documented in this encounterDetwiler Memorial Hospital06-06-2025 Telephone encounter Note * Telephone Encounter - Shakila Phillips RN - 02/17/2025 3:49 PM EDT Called the patient for pre-op instructions. Questions pertaining to hospital stay and after hospital discharge instructions were addressed. Shewas made aware to touch base after she gets discharged home for review of hospital discharge instructions and confirming postop follow up appts. Shakila Phillips RN, Aircraft Manager [facility]06-06-2025 Miscellaneous Notes* Telephone Encounter - Shakila Phillips RN - 02/17/2025 3:49 PM EDT Called the patient for pre-op instructions. Questions pertaining to hospital stay and after hospital discharge instructions were addressed. Shewas made aware to touch base after she gets discharged home for review of hospital discharge instructions and confirming postop follow up appts. Shakila Phillips RN, Aircraft Manager documented in this encounterDetwiler Memorial Hospital06-04-2025 History of Present illness Narrative* Erik Pineda MD - 02/15/2025 2:30 PM EDT SECTION OF SKULL BASE SURGERY MINIMALLY INVASIVE CRANIAL BASE & PITUITARY SURGERY PROGRAM [facility] [place] TELEMEDICINE FOLLOW-UP VISIT This is a virtual visit. It required patient-provider interaction for the medical decision making as documented below. Kourtney Novak has consented for this telemedicine encounter. I have communicated my name and active licensure. The patient's identity and physical location were verified at the time of this visit. Either the patient or their legal corporate sales representative has been informed of the [...] week postoperatively. - Consent form sent via [employer], including consent for blood transfusion if necessary. - Patient understands and agrees with the treatment plan. I spent a total of 30 minutes on the date of the service which included preparing to see the patient, ygvy-av-yseg patient care, completing clinical documentation, performing a [...] tissue mass extending into the of the rehabilitation director or parapharyngeal spaces. The soft tissue planes of the, retropharyngeal, and prevertebral spaces are maintained. The visualized parotid glands are normal in appearance. Nasopharynx/Oropharynx: The nasopharynx and oropharynx are normal in appearance. 12/28/24 OPTH Exam ( see scanned) documented in this encounterDetwiler Memorial Hospital06-04-2025 NoteHNO ID: [id number] Author: ERIK PINEDA MD Service: ? Author Type: Physician Type: Progress Notes Filed: 02/15/2025 14:59 Note Text: SECTION OF SKULL BASE SURGERY MINIMALLY INVASIVE CRANIAL BASE AND PITUITARY SURGERY PROGRAM [facility] [place] TELEMEDICINE FOLLOW-UP VISIT This is a virtual visit. It required patient-provider interaction for the medical decision making as documented below. Kourtney Novak has consented for this telemedicine encounter. I have communicated my name and active licensure. The patient's identity and physical location were verified at the time of this visit. Either the patient or their legal corporate sales representative has been informed of the [...] week postoperatively. - Consent form sent via [employer], including consent for blood transfusion if necessary. - Patient understands and agrees with the treatment plan. I spent a total of 30 minutes on the date of the service which included preparing to see the patient, sxkb-vm-ltqy patient care, completing clinical documentation, performing a [...] daily. No current facility-administered (more content not included)...[facility]06-04-2025 Telephone encounter Note* Telephone Encounter - Barbara Rosenthal LPN - 02/15/2025 8:21 AM EDT I called and spoke with patient. Relayed below message; denies questions at this time. Will go to [facility]. Barbara Rosenthal LPN February 15, 2025 8:22 AM [facility]06-04-2025 Miscellaneous Notes* Telephone Encounter - Barbara [...] BMP. Please have her go to closest [facility] lab tohave them drawn. She can go to [facility] in [place] if that is best for her thank you. Thank you, Mehul Martin APRN.JOSSIE documented in this encounterDetwiler Memorial Hospital06-04-2025 Telephone encounter Note * Telephone Encounter - Mehul Martin APRN.CNP - 02/15/2025 8:09 AM EDT Please call patient. Lab did not draw [place], A1C, or BMP. Please have her go to closest [facility] lab tohave them drawn. She can go to [facility] in [place] if that is best for her thank you. Thank you, Mehul Martin APRN.JOSSIE [facility]06-03-2025 History of Present illness Narrative* Iwona [...] PATIENT PRESENTS WITH AN IMPLANTABLE OR ATTACHED COUNTER CONTROL OPERATOR: No RADIOLOGY DEPARTMENT: MR; Exam(s) Completed: Head: Routine Brain Localization PERIPHERAL IV DATA: Site assessment: Clean,Dry and Intact, Site disposition Discontinued SIGNED BY: TITO Marquez) February 14, 2025 9:16 AM documented in this encounterDetwiler Memorial Hospital06-03-2025 NoteHNO ID: [id number] Author: IWONA LAINEZ RT(R) Service: ? Author [...] PATIENT PRESENTS WITH AN IMPLANTABLE OR ATTACHED COUNTER CONTROL OPERATOR: No RADIOLOGY DEPARTMENT: MR; Exam(s) Completed: Head: Routine Brain Localization PERIPHERAL IV DATA: Site assessment: Clean,Dry and Intact, Site disposition Discontinued SIGNED BY: TITO Marquez) February 14, 2025 9:16 [facility]06-03-2025 History and physical note* Mehul Martin, MARILEE.CLINICAL GENETICIST - 02/14/2025 7:40 AM EDT HISTORY AND [...] [facility] COPD (chronic obstructive pulmonary disease) ([facility]) Assessment: Stable with nebulizer treatments Denies any SOB Denies any Home oxygen use Lungs clear on exam SpO2 in office today 96% Monitored by PCP MAREK (obstructive sleep apnea) Assessment: Does not use CPAP Mixed hyperlipidemia Assessment: Compliant with Statin GERD (gastroesophageal reflux disease) Assessment: Controlled with dexilant Hypothyroidism Assessment: Controlled with levothyroxine Diabetes mellitus ([facility]) Assessment: Complaint with oral medications [...] of breath with the above physical activity. [id number] Score: Age: <65 Sex: female CHF history: No Hypertension history: No Stroke/TIA/thromboembolism history: No Vascular disease history: No Diabetes history: Yes [id number] Score: 2 ARISCAT Score: Age: <=50 Preoperative [...] original vaccine, age 12+ yr, monovalent (PFIZER- [email or web address] - [facility]) 01/02/2021 Imm Admin: COVID-19 original vaccine, age 12+ yr, monovalent (PFIZER- BIONTECH - [facility]) REVIEW OF SYSTEMS: PAIN ASSESSMENT: General: No weight loss, malaise or fevers. Neuro: See HPI +Fibromyalgia Respiratory: Negative for Asthma, Dyspnea, Home O2 +COPD +MAREK Cardiovascular: Negative for Recent AL, Angina, Chest Pain, PVD, DVT/PE +HLD GI: Negative for Nausea, Vomiting, Abdominal pain +GERD : Negative for dysuria, incontinence, hematuria, and hesitancy INSIDE OUTSIDE SALES REPRESENTATIVE: Negative for abnormal vaginal bleeding, abnormal vaginal [...] 386 QTC Calculation (Bazett) 436 Calculated P [place] 36 Calculated R [place] 47 Calculated T [place] 47 Impression NORMAL SINUS RHYTHM NORMAL ECG Instructions Given to Patient: Instructions located in the after visit summary. Patient given verbal and written preop instructions and voices comprehension and compliance. SIGNATURE: Mehul Martin APRN.CNP PATIENT NAME: Kourtney Novak DATE: 02/14/2025 TIME: 7:58 AM [facility]06-03-2025 History and physical note* Mehul Martin [...] [facility] COPD (chronic obstructive pulmonary disease) ([facility]) Assessment: Stable with nebulizer treatments Denies any SOB Denies any Home oxygen use Lungs clear on exam SpO2 in office today 96% Monitored by PCP MAREK (obstructive sleep apnea) Assessment: Does not use CPAP Mixed hyperlipidemia Assessment: Compliant with Statin GERD (gastroesophageal reflux disease) Assessment: Controlled with dexilant Hypothyroidism Assessment: Controlled with levothyroxine Diabetes mellitus ([facility]) Assessment: Complaint with oral medications [...] of breath with the above physical activity. [id number] Score: Age: <65 Sex: female CHF history: No Hypertension history: No Stroke/TIA/thromboembolism history: No Vascular disease history: No Diabetes history: Yes [id number] Score: 2 ARISCAT Score: Age: <=50 Preoperative [...] 12+ yr, monovalent (PFIZER- BIONTECH - [facility]) REVIEW OF SYSTEMS: PAIN ASSESSMENT: General: No weight loss, malaise or fevers. Neuro: See HPI +Fibromyalgia Respiratory: Negative for Asthma, Dyspnea, Home O2 +COPD +MAREK Cardiovascular: Negative for Recent AL, Angina, Chest Pain, PVD, DVT/PE +HLD GI: Negative for Nausea, Vomiting, Abdominal pain +GERD : Negative for dysuria, incontinence, hematuria, and hesitancy INSIDE OUTSIDE SALES REPRESENTATIVE: Negative for abnormal vaginal bleeding, abnormal vaginal [...] 386 QTC Calculation (Bazett) 436 Calculated P [place] 36 Calculated R [place] 47 Calculated T [place] 47 Impression NORMAL SINUS RHYTHM NORMAL ECG Instructions Given to Patient: Instructions located in the after visit summary. Patient given verbal and written preop instructions and voices comprehension and compliance. SIGNATURE: Mehul Martin APRN.CNP PATIENT NAME: Kourtney Novak DATE: 02/14/2025 TIME: 7:58 AM documented in this encounterDetwiler Memorial Hospital06-02-2025 Instructions* Patient Instructions* Mehul Martin APRN.CNP - 02/13/2025 11:26 AM EDT PATIENT PREOPERATIVE INSTRUCTIONS You Surgeon has scheduled you for your procedure at this surgery center: [facility] [place] Scheduling Office: [phone] --[address] [place] [address]. Please read below carefully for your personalized [...] SURGERY If you are currently using a osvw-tbp-wtoq injectable or oral medication for diabetes or [...] Procedures: - YOU MUST HAVE A RESPONSIBLE BIOMEDICAL MANAGER TAKE YOU HOME. A ONLINE MERCHANDISING SPECIALIST OR TRAVERTINE INSTALLER CANNOT BE MADE A RESPONSIBLE BIOMEDICAL MANAGER. - We recommend that a responsible person [...] call the Thursday before. Your surgeon s wholesale agronomist will tell you what time to call the office. - If you have not reached the departmental wholesale agronomist by 5 P.M., call [phone] after 5 P.M. the day before your surgery. Please be aware that emergency situations arise, which may delay or change your surgical time. If this happens, we will notify you as soon as possible and regret any inconvenience. If you already have an Advance Directive, please fax a copy to [phone] or email to for it to be [...] day. Mehul Martin APRN.JOSSIE documented in this encounterDetwiler Memorial Hospital05-30-2025 Radiology Diagnostic [facility]BL[facility] [place] [address] Ultrasound Report Signed Patient: Kourtney Novak MR#: [id number] : 1975 Acct:[id number] Age/Sex: 49 / F ADM Date: 5 Loc: Room: Type: [facility] Attending Dr: Jesus Gonzalez MD Ordering Provider: [...] Gray M.D. 02/10/2025 4:44 PM Dictation Location: [place] [address] Tech: Vani Baker Transcribed By: GRACIE 02/10/25 1644 Dictated By: George Gray DO 02/10/25 1643 Signed By: 02/10/25 1644 [facility]05-15-2025 Telephone encounter Note* Telephone Encounter - [...] WEEK THEN STOP Pharmacy Name: [facility]05-15-2025 Miscellaneous Notes* Telephone Encounter - Gifty [...] WEEK THEN STOP Pharmacy Name: [facility] documented in this encounterDetwiler Memorial Hospital04-25-2025 NoteHNO ID: [id number] Author: RACHELE FENTON APRN.JOSSIE Service: ? Author [...] visit. Either the patient or their legal corporate sales representative has been informed of the [...] 15 mg tablet simvastatin (more content not included)...[facility]04-24-2025 NoteHNO ID: [id number] Author: LA NENA WATERMAN LPN Service: ? Author Type: LICENSED NURSE Type: Progress Notes Filed: 01/05/2025 12:51 Note Text: Eye exam for Plaquenil toxicity received from [facility]. Exam date was 12/20/2024. Exam shows no signs of Plaquenil toxicity. Forms sent for scanning.[facility]04-17-2025 Telephone encounter Note* Telephone Encounter - [...] A DAY NEEDED Pharmacy Name: [facility]04-17-2025 Miscellaneous Notes* Telephone Encounter - Gifty [...] A DAY NEEDED Pharmacy Name: [facility] documented in this encounterDetwiler Memorial Hospital04-16-2025 NoteHNO ID: [id number] Author: ZULEMA WOOD MD Service: ? Author [...] extremities. GI: Bowel sound (more content not included)...[facility] 12-28-2024 History of Present illness Narrative* [...] No Swollen Glands: No documented in this encounterDetwiler Memorial Hospital04-15-2025 Evaluation note* Diagnosis Onset Date Resolution Status Admit Date Osteochondrosis of lunate of right wrist acuteApril 2024 12:51pmRight wrist painacuteApril 2024 12:51pm Osteochondrosis of lunate of right wristacuteMay 2024 1:57pmRight wrist painacuteMay 2024 1:57pm [facility] Work Phone: 1(471) 397-897204-15-2025 Evaluation note* Diagnosis Onset Date Resolution Status Admit Date Osteochondrosis of lunate of right wrist acuteApril 2024 12:51pmRight wrist painacuteApril 2024 12:51pm Osteochondrosis of lunate of right wristacuteMay 2024 1:57pmRight wrist painacuteMay 2024 1:57pmOsteochondrosis of lunate of right wristacuteJuly 2024 3:55pmRight wrist painacuteJuly 2024 3:55pm [facility] Work Phone: 1(821) 544-887503-24-2025 Telephone encounter Note* Telephone Encounter - Shakila [...] reach out for questions/concerns/updates. Shakila Phillips RN, Aircraft Manager [facility]03-24-2025 Miscellaneous Notes* Telephone Encounter - Shakila [...] reach out for questions/concerns/updates. Shakila Phillips RN, Aircraft Manager * Telephone Encounter - Shakila Phillips RN - 12/05/2024 10:04 AM EDT Left a detailed voice message for the patient requesting a call back to discuss her plan of care & scheduling surgery. Contact info provided. documented in this encounterDetwiler Memorial Hospital03-24-2025 Telephone encounter Note * Telephone Encounter - Shakila Phillips RN - 12/05/2024 10:04 AM EDT Left a detailed voice message for the patient requesting a call back to discuss her plan of care & scheduling surgery. Contact info provided. [facility]02-20-2025 Evaluation note* Diagnosis Onset Date Resolution Status Admit Date Bursitis of left shoulder acuteFebruary 2024 9:12amOsteochondrosis of lunate of right wristacute December 27, 2024 12:51pmRight wrist painacuteApr2024 12:51pm [facility] [facility] Phone: 1(289) 907-456901-27-2025 Telephone encounter Note* Telephone Encounter - Tere Escamilla LPN - 10/10/2024 4:59 PM EST Faxed new order with updated diagnosis code . sent to [phone]. [facility]01-27-2025 Miscellaneous Notes* Telephone Encounter - Tere Escamilla LPN - 10/10/2024 4:59 PM EST Faxed new order with updated diagnosis code . sent to [phone]. * Telephone Encounter - Tere Escamilla LPN - 10/10/2024 3:27 PM EST Received fax from [facility]. States that diagnosis code M19.9 ( inflammatory arthritis ) does not pass medical necessity for the 65278 regarding CBC test. They needs a different order to be placed with another diagnosis code. Please fax to Jimbo Whitten at [phone]. Notice sent to scanning . Please route to [facility] nurse for follow up documented in this encounterDetwiler [facility]01-27-2025 Telephone encounter Note * Telephone Encounter [...] equal 90mg po qd Zulema Wood MD [facility]01-27-2025 Miscellaneous Notes* Telephone Encounter - Zulema [...] Days Visit Type Date Time Department [facility] 12/28/2024 9:20 AM [facility] [...] Instance) Lab Orders None documented in this encounterDetwiler [facility] Hospital01-27-2025 Telephone encounter Note * Telephone Encounter - Tere Escamilla LPN - 10/10/2024 3:27 PM EST Received fax from [facility]. States that diagnosis code M19.9 ( inflammatory arthritis ) does not pass medical necessity for the 04382 regarding CBC test. They needs a different order to be placed with another diagnosis code. Please fax to Jimbo Whitten at [phone]. Notice sent to scanning . Please route to [facility] nurse for follow up [facility]01-27-2025 Telephone encounter Note* Telephone Encounter - [...] Days Visit Type Date Time Department [facility] 12/28/2024 9:20 AM [facility] [...] Open Future (Single Instance) Lab Orders None [facility]01-14-2025 Evaluation note* Diagnosis Onset Date Resolution Status Admit Date Osteochondrosis of lunate of right wrist acuteJanuary 2024 2:48pmRight wrist painacuteJanuary 2024 2:48pm Bursitis of left shoulderacuteFebruary 2024 9:12am [facility] Work Phone: [phone] 157-476601-07-2025 Telephone encounter Note* Telephone Encounter - Tere Escamilla LPN - 09/20/2024 5:15 PM EST Lab results received from [facility] . Copy sent to scan, copy sent to provider folder for review. . [facility]01-07-2025 Miscellaneous Notes* Telephone Encounter - Tere Escamilla LPN - 09/20/2024 5:15 PM EST Lab results received from [facility] . Copy sent to scan, copy sent to provider folder for review. . documented in this encounterDetwiler Memorial Hospital01-02-2025 Telephone encounter Note * Telephone Encounter - Tere Escamilla LPN - 09/15/2024 3:42 PM EST Lab orders faxed to [phone]. Patient updated via [facility]01-02-2025 Miscellaneous Notes* Telephone Encounter - Tere Escamilla LPN - 09/15/2024 3:42 PM EST Lab orders faxed to [phone]. Patient updated via [employer] * Telephone Encounter - Zulema Wood MD - 09/15/2024 2:04 PM EST Please send lab orders to where patient would like. [facility] call patient to discuss. Zulema Wood MD documented in this encounterDetwiler Memorial Hospital01-02-2025 Telephone encounter Note * Telephone Encounter - Zulema Wood MD - 09/15/2024 2:04 PM EST Please send lab orders to where patient would like. [facility] call patient to discuss. Zulema Wood MD [facility]12-27-2024 Telephone encounter Note* Telephone Encounter - [...] EVERY DAY Authorizing Provider: ZULEMA WOOD MD [facility]12-27-2024 Telephone encounter Note* Telephone Encounter - [...] EVERY DAY Authorizing Provider: ZULEMA WOOD MD [facility]12-27-2024 Miscellaneous Notes* Telephone Encounter - Zulema [...] advise if labs are appropriate. Route to [facility] Nurse in order to follow up with faxing Lab orders to [facility] [phone] . * Telephone Encounter - Alisha Paniagua [...] Visit Type Date Time Department [facility] 12/28/2024 9:20 AM [facility] [...] Instance) Lab Orders None documented in this encounterDetwiler Memorial Hospital12-24-2024 Telephone encounter Note * Telephone Encounter - Tere Escamilla LPN - 09/06/2024 11:11 AM EST No current labs ordered . Please advise if labs are appropriate. Route to [facility] Nurse in order to follow up with faxing Lab orders to [facility] [phone] . [facility]12-19-2024 Telephone encounter Note* Telephone Encounter - Alisha Paniagua RN - 09/01/2024 5:10 PM EST Please monitor for receipt of labs. No labs completed presently. [facility]12-18-2024 Telephone encounter Note* Telephone Encounter - Zulema Wood MD - 08/31/2024 4:25 PM EST She needs labs before I can give her refill. Labs in epic. Zulema Wood MD [facility]12-16-2024 Telephone encounter Note* Telephone Encounter - [...] Days Visit Type Date Time Department [facility] 12/28/2024 9:20 AM [facility] [...] Open Future (Single Instance) Lab Orders None [facility]10-30-2024 History of Present illness Narrative* Estevan [...] documented in this encounterSaint [facility]ry [id number] History of Present illness Narrative* Zulema Wood [...] No Swollen Glands: No documented in this encounterDetwiler Memorial Hospital09-12-2024 Telephone encounter Note * Telephone Encounter - Eun Stanford APRN.CNP - 05/26/2024 10:59 AM EDT The following approved medication requests have been transmitted electronically. Requested Prescriptions Signed Prescriptions Disp Refills methocarbamol (ROBAXIN) 500 mg tablet 45 tablet 2 Sig: Take 1 tablet by mouth two times a day as needed. Authorizing Provider: EUN STANFORD APRN.CNP [facility]09-12-2024 Miscellaneous Notes* Telephone Encounter - Eun [...] Please E-Scribe Last office visit 02/05/24 with IPM Francedamarie virtual Next office visit N/A Patient Comment: [...] [facility] documented in this encounterDetwiler [facility] Hospital09-12-2024 Telephone encounter Note * Telephone Encounter - Tlaa Summers - 05/26/2024 10:14 AM EDT Physician: [...] day as needed. [facility] Name: [facility]07-12-2024 Telephone encounter Note* Telephone Encounter - Zulema Wood MD - 03/25/2024 12:32 PM EDT The following approved medication requests have been transmitted electronically. Requested Prescriptions Pending Prescriptions Disp Refills predniSONE (DELTASONE) 5 mg tablet [Pharmacy Med Name: prednisone 5 mg tablet] 60 tablet 3 Sig: TAKE 1 TO 2 TABLETS BY MOUTH EVERY DAY Zulema Wood MD [facility]07-12-2024 Miscellaneous Notes* Telephone Encounter - Zulema [...] Visit Type Date Time Department [facility] 05/30/2024 9:40 AM [facility] [SQCBC] 02/03/24 05/04/24 02/03/24 Auth. provider: Erik Pindea MD Assoc. diagnoses: Intracranial meningioma (HCC), Preop testing CONFIRM BLOOD TYPE [SQCONABO] 02/03/24 05/04/24 02/03/24 Auth. provider: Erik Pineda MD Assoc. diagnoses: Intracranial meningioma (HCC), Preop testing STAPHYLOCOCCUS AUREUS & MRSA SCREEN, PCR, NASAL [SQSAPCR] 02/03/24 05/04/24 02/03/24 Auth. provider: Erik Pineda MD Assoc. diagnoses: Intracranial meningioma (HCC), Preop testing TYPE AND SCREEN,30 DAY [[id number]] 02/03/24 05/04/24 02/03/24 Auth. provider: Erik Pineda MD Assoc. diagnoses: Intracranial meningioma (HCC), Preop testing documented in this encounterDetwiler [facility] Hospital07-12-2024 Telephone encounter Note * Telephone Encounter [...] Days Visit Type Date Time Department [facility] 05/30/2024 9:40 AM [facility] [...] (HCC), Preop testing TYPE AND SCREEN,30 DAY [[id number]] 02/03/24 05/04/24 02/03/24 Auth. provider: Erik Pineda MD Assoc. diagnoses: Intracranial meningioma (HCC), Preop testing [facility]07-10-2024 Telephone encounter Note* Telephone Encounter - Emma Vargas - 03/23/2024 2:05 PM EDT Patient last seen 02/05/2024. [facility]07-10-2024 Miscellaneous Notes* Telephone Encounter - Emma Vargas - 03/23/2024 2:05 PM EDT Patient last seen 02/05/2024. documented in this encounterDetwiler Memorial Hospital06-25-2024 Telephone encounter Note * Telephone Encounter - Shakila Phillips RN - 03/08/2024 2:39 PM EDT ADDENDUM: March 08, 2024 2:39 PM Distance Health Visit on 02/02/2024 including the details for the patient's surgery was faxed to Moira DONOVAN ( [facility]) . Shakila Phillips RN, Aircraft Manager [facility]06-25-2024 Miscellaneous Notes* Telephone Encounter - Shakila Phillips RN - 03/08/2024 2:39 PM EDT ADDENDUM: March 08, 2024 2:39 PM Distance Health Visit on 02/02/2024 including the details for the patient's surgery was faxed to Moira DONOVAN ( [facility]) . Shakila Phillips RN, Aircraft Manager * Telephone Encounter - Shakila Phillips RN - 03/08/2024 2:17 PM EDT Spoke with nurse Pizarro. We discussed that the patient's epidural steroid injection on 03/14/2024 for her neck pain (C7/T1) isfar out from her surgery for the craniotomy with Dr Erik Pineda (04/04/24). Shakila Phillips RN, Aircraft Manager * Telephone Encounter - Brain Ruth - 03/08/2024 1:46 PM EDT General Call Caller : Moira Ortiz nurse at [facility] Contact Reason for Call : Nurse would like to confirm that pt is allowed to receive steroid injection priorto surgery-80mg of kenalog Patient requesting return call ? Yes documented in this encounterDetwiler Memorial Hospital06-25-2024 Telephone encounter Note * Telephone Encounter - Shakila Phillips RN - 03/08/2024 2:17 PM EDT Spoke with nurse Pizarro. We discussed that the patient's epidural steroid injection on 03/14/2024 for her neck pain (C7/T1) isfar out from her surgery for the craniotomy with Dr Erik Pineda (04/04/24). Shakila Phillips RN, Aircraft Manager [facility]06-25-2024 Telephone encounter Note* Telephone Encounter - Brain Ruth - 03/08/2024 1:46 PM EDT General Call Caller : Moira Ortiz nurse at [facility] Contact Reason for Call : Nurse would like to confirm that pt is allowed to receive steroid injection priorto surgery-80mg of kenalog Patient requesting return call ? Yes [facility]05-29-2024 Telephone encounter Note* Telephone Encounter - Gifty Dash - 02/10/2024 3:12 PM EDT Images from the original note were not included. Prior Authorization for Medications Requested by ([employer], Pharmacy, Patient Call, Fax) : [facility] Name: [facility] Phone # : [phone] Name of Medication : Robaxin Dose : 500 mg Tablet If renewal, auth date expiration: NA Prescribing Provider: Eliceo Last OV: 02/05/2024 with Eliceo Insurance Provider : Medicare / [employer]. Is insurance card scanned in, including Rx info? Medicare card scanned - no RX information Insurance Phone : CoverMyMeds [place]: NA E-PA? Yes [facility]05-29-2024 Miscellaneous Notes* Telephone Encounter - Chimayo Gifty Rea - 02/10/2024 3:12 PM EDT Images from the original note were not included. Prior Authorization for Medications Requested by (Karthik, Pharmacy, Patient Call, Fax) : [facility] Name[facility] Phone # : [phone] Name of Medication : Robaxin Dose : 500 mg Tablet If renewal, auth date expiration: NA Prescribing Provider: Eliceo Last OV: 02/05/2024 with Eliceo Insurance Provider : Medicare / [employer]. Is insurance card scanned in, including Rx info? Medicare card scanned - no RX information Insurance Phone : CoverMyMeds [place]: NA E-PA? Yes documented in this encounterDetwiler Memorial Hospital05-24-2024 History of Present illness Narrative* Rachele [...] visit. Either the patient or their legal corporate sales representative has been informed of the [...] with the patient: yes Rachele Fenton APRN.CLINICAL GENETICIST HEADACHE SCORES: 06/19/2023 02/01/2024 Headache Questions ID [...] soft tissue component identified in the orbit. Claims Processor: PSCIliana Transcribe Date/Time: Jan 31 2024 3:33P [...] articulation, and clear,coherent, and relevant. Short and fdc memory, cognition and general fund of knowledge [...] 30 minutes Rachele Fenton APRN.CNP Headache Section [facility] February 05, 2024 documented in this encounterDetwiler Memorial Hospital05-21-2024 History of Present illness Narrative* Alexandria Bartholomew MD - 02/02/2024 7:36 PM EDT Images from the original note were not included. SECTION OF SKULL BASE SURGERY MINIMALLY INVASIVE CRANIAL BASE & PITUITARY SURGERY PROGRAM [facility] [place], [facility] CC: Patient Care Team: Jesus Gonzalez MD [...] which included preparing to see the patient, [id number] patient care, completing clinical documentation, performing a [...] sphenoid wing without significant change since 05/06/2023. Claims Processor: PSCB Transcribe Date/Time: Jan 31 2024 5:10P [...] tissue mass extending into the of the rehabilitation director or parapharyngeal spaces. The soft tissue planes of the, retropharyngeal, and prevertebral spaces are maintained. The visualized parotid glands are normal in appearance. Nasopharynx/Oropharynx: The nasopharynx and oropharynx are normal in appearance. Result History documented in this encounterDetwiler [facility] Hospital05-21-2024 Telephone encounter Note * Telephone Encounter - Shakila Phillips RN - 02/02/2024 10:23 AM EDT Called the patient confirming virtual appointment today at [address] Alexandria Bartholomew ( Skull base fellow from Dr Pineda team). [facility]05-21-2024 Miscellaneous Notes* Telephone Encounter - Shakila Phillips RN - 02/02/2024 10:23 AM EDT Called the patient confirming virtual appointment today at [address] Alexandria Bartholomew ( Skull base fellow from Dr Pineda team). documented in this encounterDetwiler Memorial Hospital05-20-2024 Telephone encounter Note * Telephone Encounter - Jumana Zapien RN - 02/01/2024 10:39 AM EDT Pharmacy requesting refill via [facility]. Last OV: 06/26/2023 Future OV: 02/05/2024 with Rachele Fenton APRN.CLINICAL GENETICIST Last prescribed: 06/26/2023 Requested Prescriptions Pending Prescriptions Disp Refills tiZANidine (ZANAFLEX) 4 mg tablet [Pharmacy Med Name: tizanidine 4 mg tablet] 60 tablet 3 Sig: take 1 tablet by mouth every 8 hours as needed [facility]05-20-2024 Miscellaneous Notes* Telephone Encounter - Jumana Zapien RN - 02/01/2024 10:39 AM EDT Pharmacy requesting refill via [facility]. Last OV: 06/26/2023 Future OV: 02/05/2024 with Rachele Fenton APRN.CLINICAL GENETICIST Last prescribed: 06/26/2023 Requested Prescriptions Pending Prescriptions Disp Refills tiZANidine (ZANAFLEX) 4 mg tablet [Pharmacy Med Name: tizanidine 4 mg tablet] 60 tablet 3 Sig: take 1 tablet by mouth every 8 hours as needed documented in this encounterDetwiler Memorial Hospital05-17-2024 NoteHNO ID: [id number] Author: KOFI [place] CT Service: Radiology Author [...] PATIENT PRESENTS WITH AN IMPLANTABLE OR ATTACHED COUNTER CONTROL OPERATOR: No RADIOLOGY DEPARTMENT: CT; Exam(s) Completed: Brain STERO PERIPHERAL IV DATA: Not applicable SIGNED BY: KAYLEEN Sharma January 29, 2024 12:53 [facility]05-17-2024 NoteHNO ID: [id number] Author: AILYN NEUMANN RT(R) Service: ? Author [...] PATIENT PRESENTS WITH AN IMPLANTABLE OR ATTACHED COUNTER CONTROL OPERATOR: No ALLERGIES: Reviewed and unchanged CONTRAST ALLERGY: NO. EXAM: MRI - CONTRAST TYPE: GROUP II PERIPHERAL IV DATA: Ambulatory: A peripheral IV was started in the Left antecubital site with a Angio cath: 22 gauge. RADIOLOGY DEPARTMENT: MR; Exam(s) Completed: Head: Routine Brain SIGNATURE: Ailyn Neumann RDMS, RVT- Sheila ([facility]) PATIENT NAME: Kourtney Novak DATE: January 29, 2024 TIME: 1:06 [facility]05-17-2024 History of Present illness Narrative* [...] PATIENT PRESENTS WITH AN IMPLANTABLE OR ATTACHED COUNTER CONTROL OPERATOR: No RADIOLOGY DEPARTMENT: CT; Exam(s) Completed: Brain STERO PERIPHERAL IV DATA: Not applicable SIGNED BY: KAYLEEN Sharma January 29, 2024 12:53 PM documented in this encounterDetwiler Memorial Hospital05-17-2024 History of Present illness Narrative* Ailyn [...] PATIENT PRESENTS WITH AN IMPLANTABLE OR ATTACHED COUNTER CONTROL OPERATOR: No ALLERGIES: Reviewed and unchanged CONTRAST ALLERGY: NO. EXAM: MRI - CONTRAST TYPE: GROUP II PERIPHERAL IV DATA: Ambulatory: A peripheral IV was started in the Left antecubital site with a Angio cath: 22 gauge. RADIOLOGY DEPARTMENT: MR; Exam(s) Completed: Head: Routine Brain SIGNATURE: Ailyn Neumann RDMS, RVTMack Veras ([facility]) PATIENT NAME: Kourtney Novak DATE: January 29, 2024 TIME: 1:06 PM documented in this encounterDetwiler Memorial Hospital05-15-2024 Telephone encounter Note * Telephone Encounter - Zulema Wood MD - 01/27/2024 3:29 PM EDT The following approved medication requests have been transmitted electronically. Requested Prescriptions Pending Prescriptions Disp Refills etodolac (LODINE) 400 mg tablet 60 tablet 3 Sig: One tab po bid prn Zulema Wood MD [facility]05-15-2024 Miscellaneous Notes* Telephone Encounter - Zulema [...] Days Visit Type Date Time Department [facility] 05/30/2024 9:40 AM [facility] Instance) Lab Orders None documented in this encounterDetwiler Memorial Hospital05-15-2024 Telephone encounter Note * Telephone Encounter [...] Visit Type Date Time Department [facility] 05/30/2024 9:40 AM [facility] [...] Open Future (Single Instance) Lab Orders None [facility]05-07-2024 Telephone encounter Note* Telephone Encounter - [...] discussion and consent. Both appointments were confirmed. [facility]05-07-2024 Miscellaneous Notes* Telephone Encounter - Shakila [...] to the patient's home. Shakila Phillips RN, Aircraft Manager documented in this encounterDetwiler Memorial Hospital05-07-2024 Telephone encounter Note * Telephone Encounter - Shakila Phillips RN - 01/19/2024 9:30 AM EDT Spoke with Ms Kourtney Novak today confirming surgery on 04/11/[address] Erik Pineda. Right middle sphenoid wing Preoperative appointments will be scheduled ~ 2 weeks prior to surgery date at a [facility] facility closer to the patient's home. Shakila Phillips RN, Aircraft Manager [facility]04-26-2024 Telephone encounter Note* Telephone Encounter - Rohit Khan MA - 01/08/2024 3:14 PM EDT Lab results received from [facility]. Placed in dr Vinay griggs for review,copy sent to scanning. [facility]04-26-2024 Miscellaneous Notes* Telephone Encounter - Rohit Khan MA - 01/08/2024 3:14 PM EDT Lab results received from [facility]. Placed in dr Vinay griggs for review,copy sent to scanning. documented in this encounterDetwiler Memorial Hospital04-23-2024 Telephone encounter Note * Telephone Encounter - Shakila Phillips RN - 01/05/2024 1:04 PM EDT Spoke with Estefany Kourtney Johnson Marino today confirming surgery on Thu03/28/[address] Erik Pineda. Preoperative appointments to be scheduled at a [facility] facility near the patient's home. [facility]04-23-2024 Miscellaneous Notes* Telephone Encounter - Shakila Phillips RN - 01/05/2024 1:04 PM EDT Spoke with Estefany Kourtney Johnson Marino today confirming surgery on Thu03/28/[address] Erik Pineda. Preoperative appointments to be scheduled at a [facility] facility near the patient's home. documented in this encounterDetwiler Memorial Hospital04-22-2024 Telephone encounter Note * Telephone Encounter - Michelle Thompson MA - 01/04/2024 4:17 PM EDT Orders faxed. Confirmation received. [facility]04-22-2024 Miscellaneous Notes* Telephone Encounter - Michelle Thompson MA - 01/04/2024 4:17 PM EDT Orders faxed. Confirmation received. * Telephone Encounter - Michelle Thompson MA - 01/04/2024 2:43 PM EDT Printed labs. Sent msg to pt to clarify which [facility] to fax to. Labs/Fax sheet in [...] requesting to FAX 01/01/24 [facility] She will send their FAX # in My Chart documented in this encounterDetwiler Memorial Hospital04-22-2024 Telephone encounter Note * Telephone Encounter - Michelle Thompson MA - 01/04/2024 2:43 PM EDT Printed labs. Sent msg to pt to clarify which [facility] to fax to. Labs/Fax sheet in Michelle'slime green folder. Please fax once clarification is received. [facility]04-22-2024 Telephone encounter Note* Telephone Encounter - Zulema Wood MD - 01/04/2024 2:03 PM EDT Labs are ordered, please print and fax per patient request. Zulema Wood MD [facility]04-22-2024 Telephone encounter Note* Telephone Encounter - Verenice Ga RN - 01/04/2024 1:45 PM EDT Patient calling Needs 01/01/24 Lab Orders in Epic please (pended) Also requesting to FAX 01/01/24 Lab Orders to [facility] She will send their FAX # in My Chart [facility]03-20-2024 Miscellaneous Notes* Telephone Encounter - Tory [...] if patient had any question please call [phone]. My Chart Message also sent. * Telephone [...] Visit Type Date Time Department [facility] 05/30/2024 9:40 AM [facility] [...] Instance) Lab Orders None documented in this encounterDetwiler Memorial Hospital02-29-2024 Miscellaneous Notes* Telephone Encounter - Zulema [...] Visit Type Date Time Department [facility] 05/30/2024 9:40 AM [facility] [...] Instance) Lab Orders None documented in this encounterDetwiler Memorial Hospital02-28-2024 Miscellaneous Notes* Telephone Encounter - Zulema [...] Visit Type Date Time Department [facility] 05/30/2024 9:40 AM [facility] [...] Instance) Lab Orders None documented in this encounterDetwiler Memorial Hospital02-28-2024 Miscellaneous Notes* Telephone Encounter - Shakila Phillips RN - 11/11/2023 11:37 AM EST Spoke with Ms.Mandie Alex Novak today following up on the [employer] message from 10/08/2023. She sent a message about having symptoms of blurry vision and was advised to schedule an appointment with ophthalmology. Today the patient stated that the blurry vision was 1 incident and that she did not have any visionchanges since. She was made aware to send an update or call for any questions or concerns. Shakila Phillips RN, Aircraft Manager documented in this encounterDetwiler Memorial Hospital02-27-2024 Miscellaneous Notes* Telephone Encounter - Nathaly [...] Visit Type Date Time Department [facility] Lab Orders None documented in this encounterCleveland [id number] Miscellaneous Notes* Telephone Encounter - Shakila Phillips RN - 07/06/2023 3:23 PM EDT Spoke with Ms. Kourtney Novak. We discussed that it is so far out to schedule surgery in March 2024. We discussed option of possible surgery dates. She will be contacted during late December- January 2024 toconfirm the date of surgery and schedule the preoperative appointments. Shakila Phillips RN, Aircraft Manager * Telephone Encounter - Justine Pagan - 07/02/2023 3:04 PM EDT General Call Caller : Pt Contact Reason for Call : Pt would like to go forward w scheduling surgery. However, she would like surgeryto be scheduled in March 2024, pt would like to discuss further Patient requesting return call ? Yes documented in this encounterDet[facility]10-23-2023 Miscellaneous Notes* Telephone Encounter - Shakila Phillips RN - 07/06/2023 3:21 PM EDT Spoke with Estefany Kourtney Johnson Edwarderic. We discussed that it is so far out to schedule surgery in March 2024. We discussed option of possible surgery dates. She will be contacted during late December- January 2024 toconfirm the date of surgery and schedule the preoperative appointments. Shakila Phillips RN, Aircraft Manager documented in this [facility]10-17-2023 Instructions* Patient Instructions* Stephanie Moy APRN.CLINICAL GENETICIST - 06/30/2023 11:30 AM EDT I believe [...] (due back Apr 2024). documented in this encounterDetw[facility]10-17-2023 Nurse Note* Bess Do Ma - 06/30/2023 10:52 AM EDT Additional intake questions: Has the patient had fever, nausea, vomiting, diarrhea, constipation, fatigue for > 1 week? No Does the patient have a decreased appetite? No Does patient want to see a Manager Specialty? No (yes to any of above refer patient to schedulers for dietitian appointment) ) Does patient have any new or increased numbness or tingling of extremities? No Is patient interested in fertility information? No Does patient need any prescription refills? No Does patient have an advanced directive in place? No, Patient referred to [facility] documented in this encounterDet[facility]10-17-[facility]23 History of Present illness Narrative* Erik Pineda MD - 06/30/2023 10:49 AM EDT Images from the original note were not included. SECTION OF SKULL BASE SURGERY MINIMALLY INVASIVE CRANIAL BASE & PITUITARY SURGERY PROGRAM [facility] [place], [facility] CC: Patient Care Team: Jesus Gonzalez MD as PCP - General (Family Medicine) Laron Lou DO - [facility] ASSESSMENT: In summary, Kourtney Novak is a [...] and follow-up via virtual visit. Stephanie Moy APRN.CLINICAL GENETICIST I have reviewed the progess note obtained [...] which included preparing to see the patient, [id number] patient care, completing clinical documentation, performing a [...] the prior exam. documented in this encounterCleveland [id number] Instructions* Patient Instructions* Fahad Corey MD - [...] 26, 2023 5:39 PM documented in this encounterDetwiler [facility]10-13-2023 History of Present illness Narrative* Fahad Corey MD - 06/26/2023 5:06 PM EDT [facility] NEW EVALUATION June 26, 2023 5:00 PM I have communicated my name and active licensure. The patient's identity and physical location wereverified at the time of this visit. Either the patient or their legal corporate sales representative has been informed of the [...] 26, 2023 5:36 PM documented in this encounterDetwiler [facility] Hospital08-30-2023 Miscellaneous Notes* Telephone Encounter - Moira Goodrich APRN.CLINICAL GENETICIST - 05/13/2023 1:13 PM EDT Time Frame: Next available Provider: Carmine (possible [facility]) Referring: self Please instruct patient to hand carry/ upload images prior to appt Images also requested via Electronically Dx: Multiple meningiomas with interval growth Multiple meningiomas with interval growth since 2015. MRI done for dizziness. [facility] [place] [address] [place] [address] MRI Report Signed Patient: Kourtney Novak MR#: [id number] : 1975 Acct:[id number] Age/Sex: 47 / F ADM Date: 05/06/23 Loc: Room: Type: [facility] Attending Dr: Jesus Gonzalez MD Copies to: [...] frontal subcortical white matter. documented in this encounterDetwiler [facility] Hospital07-31-2023 Miscellaneous Notes* Telephone Encounter - Zulema [...] Visit Type Date Time Department [facility] 09/28/2023 3:00 PM [facility] [...] Instance) Lab Orders None documented in this encounterDetwiler Memorial Hospital07-31-2023 Miscellaneous Notes* Telephone Encounter - Zulema [...] Visit Type Date Time Department [facility] 09/28/2023 3:00 PM [facility] [...] Instance) Lab Orders None documented in this encounterDetwiler Memorial Hospital07-18-2023 Evaluation note* Encounter Date Diagnosis Assessment [...] Mar,OtherObtain labs from Dr. Gonzalez regarding diabetes [facility] Other 06-26-2023 Miscellaneous Notes* Telephone Encounter - Tory Thomas LPN - 03/09/2023 11:55 AM EDT Refill to soon refilled 01/19/2023 30 capsules with 3 refilles documented in this encounterDetwiler [facility] Hospital05-08-2023 Miscellaneous Notes* Telephone Encounter - Zulema [...] Visit Type Date Time Department [facility] 06/26/2023 10:40 AM [facility] [...] Instance) Lab Orders None documented in this encounterDetwiler [facility] Hospital04-05-2023 Evaluation note* Encounter Date Diagnosis Assessment Notes Treatment Notes Treatment Clinical Notes Dec, 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 May repeat ulnar wrist cortisone injection when needed. Patient instructed on the use of Voltaren Gel in the meantime Dec,Right wrist pain (ICD-10 - M25.531) Dec,Other specified postprocedural states (ICD-10 - Z98.890) [facility] Other 03-30-2023 Miscellaneous Notes* Addendum Note - [...] qd Zulema Wood MD documented in this encounterDetwiler [facility] Hospital01-16-2023 Miscellaneous Notes* Telephone Encounter - Zulema [...] check out. Thank you. 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 Decrease to 81 mg Aspirin once per day x 3 months then begin to wean off. Jul,ther specified postprocedural states (ICD-10 - Z98.890) [facility] Other 11-03-2022 Evaluation note* Encounter Date Diagnosis [...] pain of right shoulder (ICD-10 - M25.511) [facility] Other 10-12-2022 Evaluation note* Encounter Date Diagnosis [...] pain of left shoulder (ICD-10 - M25.512) [facility] Other 07-18-2022 Evaluation note* Encounter Date Diagnosis [...] pain of right shoulder (ICD-10 - M25.511) [facility] Other 05-16-2022 Evaluation note* Encounter Date Diagnosis [...] will order an MRI for futher review. 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 Continue Aspirin. 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 Risks and benefits of procedure explained to patient; patient verbalizes understanding. 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 Patient would like to proceed with surgical treatment in October [facility] Other 11-29-2021 Evaluation note* Encounter Date Diagnosis Assessment Notes Treatment Notes Treatment Clinical Notes Jul, Carpal tunnel syndrome of right wrist (ICD-10 - G56.01) [facility] Other 10-05-2021 Evaluation note* Encounter Date Diagnosis [...] brace as needed for pain and support [facility] Other 09-22-2021 Evaluation note* Encounter Date Diagnosis [...] of right supraspinatus tendon (ICD-10 - M75.101) [facility] Other 06-21-2021 NoteHNO ID: [id number] Author: Hu Blankenship Service: Radiology Author Type: Ict Account Manager Type: Progress Notes Filed: 03/04/2021 1:11 PM Note Text: Radiology Service Progress Note PATIENT NAME: Kourntey Novak DATE OF SERVICE: March 04, 2021 [...] HospitalConsult note* Clinical Note Date No Information [facility] Work Phone: Discharge summary* Clinical Note Date No Information [facility] Work Phone: Evalucnrlr note* Diagnosis Inflammatory arthritis- Primary Unspecified inflammatory polyarthropathy Myalgia Mylagia and myositis, unspecified documented in this encounter [facility] HospitalEvaluation noteNo InformationNort [facility] Other evalubqxms noteNo assessment information available [facility] Work Phone: [email or web address] note* Diagnosis Inflammatory arthritis- Primary Unspecified inflammatory polyarthropathy Myalgia Mylagia and myositis, unspecified Fibromyalgia Mylagia and myositis, unspecified documented in this encounter [facility]* Diagnosis Medication overuse headache- Primary Drug induced headache, not elsewhere classified Brain mass Unspecified condition of brain Meningioma (HCC) Benign neoplasm of cerebral meninges Chronic daily headache Headache documented in this encounter [facility]* Diagnosis Intracranial meningioma (HCC)- Primary Benign neoplasm of cerebral meninges [facility] Diagnosis Onset Date Resolution Status Osteochondrosis of lunate of right wrist acuteRight wrist painacute [facility] Work Phone: evaluation note* Diagnosis 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) Benign neoplasm of cerebral meninges [facility]* Diagnosis Benign neoplasm of meninges (HCC) Benign neoplasm of cerebral meninges [facility]* Diagnosis Chronic daily headache Headache [facility]* Diagnosis Intracranial meningioma (HCC)- Primary Benign neoplasm of cerebral meninges [facility]* Diagnosis Meningioma (HCC)- Primary Benign neoplasm of cerebral meninges Chronic daily headache Headache Intracranial meningioma (HCC) Benign neoplasm of cerebral meninges Preop testing Preoperative examination, unspecified documented in this encounter [facility]* Diagnosis Onset Date Resolution Status Osteochondrosis of lunate of right wrist acuteRight wrist painacuteAcute pain of right shoulderacuteBiceps tendonitis acute [facility] Work Phone: Evaluation note* Diagnosis Onset Date Resolution Status Acute pain of right shoulder acuteBiceps tendonitisacuteOsteochondrosis of lunate of right wristacuteRight wrist painacute [facility] Work Phone: Evaluation note* Diagnosis Inflammatory arthritis- Primary Unspecified inflammatory polyarthropathy Fibromyalgia Mylagia and myositis, unspecified Medication monitoring encounter Encounter for therapeutic drug monitoring documented in this encounter [facility] note* Diagnosis Tooth infection- Primary Acute apical periodontitis of pulpal origin documented in this encounter [facility] note* Diagnosis Inflammatory arthritis- Primary Unspecified inflammatory polyarthropathy documented in this encounter [facility] note* Diagnosis Onset Date Resolution Status Admit Date Osteochondrosis of lunate of right wrist acuteJanuary 2024 2:48pmRight wrist painacuteJanuary 2024 2:48pm [facility] Work Phone: Evaluation note* Diagnosis Encounter for medication monitoring- Primary Encounter for therapeutic drug monitoring documented in this encounter [facility] note* Diagnosis Fibromyalgia Mylagia and myositis, unspecified documented in this encounter [facility] note* Diagnosis Inflammatory arthritis- Primary Unspecified inflammatory polyarthropathy Fibromyalgia Mylagia and myositis, unspecified Encounter for medication monitoring Encounter for therapeutic drug monitoring documented in this encounter [facility] note* Diagnosis Chronic daily headache Headache documented in this encounter [facility] note* Diagnosis Chronic daily headache Headache Intracranial meningioma (HCC) Benign neoplasm of cerebral meninges Preop testing Preoperative examination, unspecified documented in this encounter [facility] note* Diagnosis Pre-op evaluation- Primary Preoperative examination, [...] unspecified documented in this encounter [facility] note* Diagnosis Pre-op evaluation- Primary Preoperative examination, [...] unspecified documented in this encounter [facility] note* Diagnosis Pre-op evaluation- Primary Preoperative examination, [...] Associated Problem(s): COPD (chronic obstructive pulmonary disease) ([facility]) Assessment: Stable with nebulizer treatments Denies any SOB Denies any Home oxygen use Lungs clear on exam SpO2 in office today 96% Monitored by PCP * Assessment & Plan Note - Mehul Martin APRN.CNP - 02/14/2025 8:00 AM EDT Associated Problem(s): Fibromyalgia Assessment: Controlled with Cymbalta Monitored by [facility]ology documented in this encounter [facility]* Diagnosis Meningioma (HCC)- Primary Benign [...] Unspecified inflammatory polyarthropathy documented in this encounter [facility]* Diagnosis Meningioma (HCC)- Primary Benign [...] of cerebral meninges documented in this encounter [facility]* Diagnosis Meningioma (HCC)- Primary Benign neoplasm of cerebral meninges Intracranial meningioma (HCC) Benign neoplasm of cerebral meninges Preop testing Preoperative examination, unspecified Chronic daily headache Headache 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) COPD (chronic obstructive pulmonary disease) ([facility]) Chronic airway obstruction, not elsewhere classified Diabetes mellitus ([facility]) Type II or unspecified type [...] and myositis, unspecified documented in this encounter [facility]* Diagnosis Meningioma (HCC)- Primary Benign [...] following unspecified surgery documented [facility] this encounter [facility]* Diagnosis Meningioma (HCC)- Primary Benign [...] daily headache Headache documented in this encounter [facility]* Diagnosis Meningioma (HCC)- Primary Benign neoplasm of cerebral meninges Intracranial meningioma (HCC) Benign neoplasm of cerebral meninges Preop testing Preoperative examination, unspecified Chronic daily headache Headache 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) COPD (chronic obstructive pulmonary disease) (HCC) Chronic airway obstruction, not elsewhere classified Diabetes mellitus ([facility]) Type II or unspecified type [...] Chronic obstructive pulmonary disease, unspecified COPD type ([facility]) Depression, unspecified depression type Type 2 diabetes mellitus without complication, without long-term current use of insulin ([facility]) Mixed hyperlipidemia Fibromyalgia Mylagia and myositis, unspecified Intracranial meningioma (HCC) Benign neoplasm of cerebral meninges Preop testing Preoperative examination, unspecified MAREK (obstructive sleep apnea) Obstructive sleep apnea (adult) (pediatric) Gastroesophageal reflux disease, unspecified whether esophagitis present Hypothyroidism, unspecified type Class 3 severe obesity due to excess calories with serious comorbidity and body mass index (BMI) of40.0 to 44.9 in adult ([facility]) Inflammatory arthritis Unspecified inflammatory polyarthropathy S/P craniotomy- Primary Other postprocedural status documented in this encounter [facility]* Diagnosis Meningioma (HCC)- Primary Benign neoplasm of cerebral meninges Intracranial meningioma (HCC) Benign neoplasm of cerebral meninges Preop testing Preoperative examination, unspecified Chronic daily headache Headache Neoplasm causing mass effect and brain compression on adjacent structures ([facility]) COPD (chronic obstructive pulmonary disease) ([facility]) Chronic airway obstruction, not elsewhere classified Diabetes mellitus ([facility]) Type II or unspecified type [...] index (BMI) of40.0 to 44.9 in adult ([facility]) Pre-op evaluation- Primary Preoperative examination, unspecified Anxiety Anxiety state, unspecified Chronic obstructive pulmonary disease, unspecified COPD type ([facility]) Depression, unspecified depression type Type 2 diabetes mellitus without complication, without long-term current use of insulin ([facility]) Mixed hyperlipidemia Fibromyalgia Mylagia and myositis, unspecified Intracranial meningioma (HCC) Benign neoplasm of cerebral meninges Preop testing Preoperative examination, unspecified MAREK (obstructive sleep apnea) Obstructive sleep apnea (adult) (pediatric) Gastroesophageal reflux disease, unspecified whether esophagitis present Hypothyroidism, unspecified type Class 3 severe obesity due to excess calories with serious comorbidity and body mass index (BMI) of40.0 to 44.9 in adult ([facility]) Inflammatory arthritis Unspecified inflammatory polyarthropathy Intracranial meningioma (HCC)- Primary Benign neoplasm of cerebral meninges Postprocedural state Other postprocedural status Dizziness and giddiness documented in this encounter [facility]* Diagnosis Meningioma (HCC)- Primary Benign neoplasm [...] index (BMI) of40.0 to 44.9 in adult ([facility]) Pre-op evaluation- Primary Preoperative examination, unspecified Anxiety Anxiety state, unspecified Chronic obstructive pulmonary disease, unspecified COPD type ([facility]) Depression, unspecified depression type Type 2 diabetes mellitus without complication, without long-term current use of insulin ([facility]) Mixed hyperlipidemia Fibromyalgia Mylagia and myositis, unspecified Intracranial meningioma (HCC) Benign neoplasm of cerebral meninges Preop testing Preoperative examination, unspecified MAREK (obstructive sleep apnea) Obstructive sleep apnea (adult) (pediatric) Gastroesophageal reflux disease, unspecified whether esophagitis present Hypothyroidism, unspecified type Class 3 severe obesity due to excess calories with serious comorbidity and body mass index (BMI) of40.0 to 44.9 in adult ([facility]) Inflammatory arthritis Unspecified inflammatory polyarthropathy Meningioma (HCC)- Primary Benign neoplasm of cerebral meninges Chronic daily headache Headache documented in this encounter [facility]* Diagnosis Meningioma (HCC)- Primary Benign neoplasm of cerebral meninges Intracranial meningioma (HCC) Benign neoplasm of cerebral meninges Preop testing Preoperative examination, unspecified Chronic daily headache Headache 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) COPD (chronic obstructive pulmonary disease) ([facility]) Chronic airway obstruction, not elsewhere [...] index (BMI) of40.0 to 44.9 in adult ([facility]) Pre-op evaluation- Primary Preoperative examination, unspecified Anxiety Anxiety state, unspecified Chronic obstructive pulmonary disease, unspecified COPD type ([facility]) Depression, unspecified depression type Type 2 diabetes mellitus without complication, without long-term current use of insulin ([facility]) Mixed hyperlipidemia Fibromyalgia Mylagia and myositis, unspecified Intracranial meningioma ([facility]) Benign neoplasm of cerebral meninges Preop testing Preoperative examination, unspecified MAREK (obstructive sleep apnea) Obstructive sleep apnea (adult) (pediatric) Gastroesophageal reflux disease, unspecified whether esophagitis present Hypothyroidism, unspecified type Class 3 severe obesity due to excess calories with serious comorbidity and body mass index (BMI) of40.0 to 44.9 in adult ([facility]) Inflammatory arthritis Unspecified inflammatory polyarthropathy Chronic daily headache Headache documented in this encounter [facility]* Diagnosis Fibromyalgia Unspecified myalgia and myositis documented in this encounter [facility]* Diagnosis Rib pain on right side- Primary Sprain of costal cartilage, initial encounter Rib pain on right side documented in this encounter [facility] HealthcareEvaluation note* Diagnosis Recurrent sinus infections- Primary Unspecified sinusitis (chronic) Obstructive sleep apnea Obstructive sleep apnea (adult) (pediatric) documented in this encounter [facility] HealthcareHistory and physical note* Clinical Note Date No Information [facility] Work Phone: Hisksnv general Narrative - Reported* Type Description Date Medical History GERD Medical HistorygastroparesisMedical HistorybipolarMedical HistoryDM IISurgical Historycarpal tunnelSurgical Historycystectomy-left breastSurgical Historyright neuroplasty, ulnar nerve at elbow08/2020Hospitalization Historysee above Hospitalization HistoryCOPD [facility] Other History general Narrative - Reported* Type Description Date Medical History GERD Medical HistorygastroparesisMedical HistorybipolarMedical HistoryDM IIMedical HistoryCOPDSurgical Historycarpal tunnelSurgical Historycystectomy-left breast Surgical Historyright neuroplasty, ulnar nerve at elbow08/2020Surgical History appendectomy09/2021Hospitalization Historysee aboveHospitalization HistoryCOPD [facility] Other History general Narrative - Reported* Type Description Date Medical History GERD Medical HistorygastroparesisMedical HistorybipolarMedical HistoryDM IIMedical HistoryCOPDSurgical Historycarpal tunnelSurgical Historycystectomy-left breast Surgical Historyright neuroplasty, ulnar nerve at elbow08/2020Surgical History appendectomy1/2Surgical Historyright wrist PIN/core decompression Hospitalization Historysee aboveHospitalization HistoryCOPD IPS Group Other Histmhl general Narrative - Reported* Type Description Date Medical History GERD Medical HistorygastroparesisMedical HistorybipolarMedical HistoryDM IIMedical HistoryCOPDSurgical Historycarpal tunnelSurgical Historycystectomy-left breast Surgical Historyright neuroplasty, ulnar nerve at elbow08/2020Surgical History appendectomy1/2Surgical Historyright wrist PIN/core decompressionSurgical Historycubital tunnelHospitalization Historysee aboveHospitalization HistoryCOPD IPS Group Other History of Past illness Narrative* Condition Effective Dates (start - stop) O utcome No Information [facility] Work Phone: History of Present illness Narrative* Encounter Date Complaint History Of Prese nt Illness No Information [facility] Work Phone: Hospital Discharge instructions Additional Instructions Apply ice for the next 24 hours and then rotate heat Monitor your blood pressure at home and take the readings to your PCP Take the steroids that you were prescribed [place] for severe pain You cannot work or drive when taking [place] Breathing exercises as may you discussed to prevent further complications Follow with your [facility] Instructions* Date Instruction Additional Infor mation No Information [facility] Work Phone: Progress note* Clinical Note Date No Information [facility] Work Phone: Reason for referral (narrative)No reason for referral information availableM[facility] Work Phone: Reason for referral (narrative)* Reason For Referral No Information [facility] Work Phone: Reason for visit Narrative* MRI/CT (Routine) - Closed SpecialtyDiagnoses / ProceduresReferred By ContactReferred To ContactMR IMAGING Diagnoses Intracranial meningioma (HCC) Preop testing Procedures MRI BRAIN WO/W IVCON MRI BRAIN BRAIN STEM W/O W/CONTRAST MATERIAL Erik Pineda MD [address] [place] [address] Phone: tel: fax: [facility] [place] [address] Referral IDStatusReasonStart DateExpiration DateVisits RequestedVisits [id number] Auto-Generated Referral / [facility] HospitalReview of systems Narrative - Reported* System Pos/Neg Findings No Information [facility] Work Phone: Summary Purpose Family History No [...] in left shoulder November 03, 2024 8:26am [employer] LT SHOULDER PAIN NX November 03 9:12am [...] in left shoulder November 03, 2024 8:26am [employer] SHOULDER PAIN NX November 03 9:12am d50.9 December 13, 2024 3:07 pm Chief Complaint Admit Date M25.512 - Pain in left shoulder November 03, 2024 8:26am [employer] LT SHOULDER PAIN NX November 03 9:12am [...] 7:02am M25.511 - Pain in right shoulder [facility] [place] [facility] 2024 10:38am NEW RT BICEP PAIN NX May 30 1:21pm Reason for Visit Admit Date Osteochondrosis of lunate of right wrist March 22, 2025 3:55pm Right wrist pain March 22, 2025 3:55p m Tear of right supraspinatus tendon [facility] 2024 1:21pm Chief Complaint Admit Date 6-8 WEEKS March 22, 2025 3:55p m E78.5,R73.09,D64.9,E55.9,I10 May 152024 7:02am M25.511 - Pain in right shoulder [facility] [place] 2024 10:38am NEW RT BICEP PAIN NX May 30 1:21pm rt side rib area pain June 05 8:09pm Chief Complaint Admit Date 6-8 WEEKS March 22, 2025 3:55p m E78.5,R73.09,D64.9,E55.9,I10 May 152024 7:02am M25.511 - Pain in right shoulder [facility] 2024 10:38am NEW RT BICEP PAIN NX May 30 1:21pm rt side rib area pain June 05 8:09pm E04.1 June 13, 2025 2:50pm Chief Complaint Admit Date 6-8 WEEKS March 22, 2025 3:55p m E78.5,R73.09,D64.9,E55.9,I10 May 152024 7:02am M25.511 - Pain in right shoulder [facility] 2024 10:38am NEW RT BICEP PAIN NX May 30 1:21pm rt side rib area pain June 05 8:09pm E04.1 June 13, 2025 2:50pm R07.89 June 19, 2025 3: 46pm Chief Complaint Admit Date E78.5,R73.09,D64.9,E55.9,I10 May 152024 7:02am M25.511 - Pain in right shoulder [facility] 2024 10:38am NEW RT BICEP PAIN NX May 30 1:21pm rt side rib area pain June 05 8:09pm E04.1 June 13, 2025 2:50pm R07.89 June 19, 2025 3: 46pm E28.39 June 26, 2025 1 :55pm Reason for Visit Admit Date Tear of right supraspinatus tendon [facility] 2024 1:21pm Chief Complaint Admit Date E78.5,R73.09,D64.9,E55.9,I10 May 152024 7:02am M25.511 - Pain in right shoulder [facility] 2024 10:38am NEW RT BICEP PAIN NX May 30 1:21pm rt side rib area pain June 05 8:09pm E04.1 June 13, 2025 2:50pm R07.89 June 19, 2025 3: 46pm E28.39 June 26, 2025 1 :55pm M54.14 June 27, 2025 5 :15pm Chief Complaint Admit Date E78.5,R73.09,D64.9,E55.9,I10 May 152024 7:02am M25.511 - Pain in right shoulder [facility] 2024 10:38am NEW RT BICEP PAIN [...] Date Tear of right supraspinatus tendon [facility] 2024 1:21pm Osteochondrosis of lunate of right wrist July 12, 2025 3:22pm Right wrist pain July 12, 2025 3 :22pm Chief Complaint Admit Date E78.5,R73.09,D64.9,E55.9,I10 May 152024 7:02am M25.511 - Pain in [facility] 2024 10:38am NEW RT BICEP PAIN [...] and content) DATE CREATED AUTHOR 03/10/2018 [facility] DATE CREATED AUTHOR AUTHOR'S ORGANIZ ATION 03/05/2021 [facility] DATE CREATED AUTHOR AUTHOR'S ORGANIZ ATION 10/13/2022 [facility] DATE CREATED AUTHOR AUTHOR'S ORGANIZ ATION 02/01/2024 [facility] DATE CREATED AUTHOR AUTHOR'S ORGANIZ ATION 05/31/2025 [facility] DATE CREATED AUTHOR AUTHOR'S ORGANIZ ATION 06/24/2025 [facility] DATE CREATED AUTHOR AUTHOR'S ORGANIZ ATION 07/03/2025 [facility] DATE CREATED AUTHOR AUTHOR'S ORGANIZ ATION 07/11/2025 [facility] DATE CREATED AUTHOR AUTHOR'S ORGANIZ ATION 07/20/2025 [facility] Source Comments (unrecognize d section and content) In the event this informatio n is protected by the Federal Confidentiality of Alcohol and Drug Abuse Patient Records regulations: The Federal rules restrict any use of the information to criminally investigate or prosecute any alcohol or drug abuse patient.[facility] HospitalIn the event this information is protected by the Federal Confidentiality of Alcohol and Drug Abuse Patient Records regulations: The Federal rules restrict any use of the information to criminally investigate or prosecute any alcohol or drug abuse patient.[facility] HospitalIn the event this information is protected by the Federal Confidentiality of Alcohol and Drug Abuse Patient Records regulations: The Federal rules restrict any use of the information to criminally investigate or prosecute any alcohol or drug abuse patient.[facility] HospitalIn the event this information is protected by the Federal Confidentiality of Alcohol and Drug Abuse Patient Records regulations: The Federal rules restrict any use of the information to criminally investigate or prosecute any alcohol or drug abuse patient.[facility] HospitalIn the event this information is protected by the Federal Confidentiality of Alcohol and Drug Abuse Patient Records regulations: The Federal rules restrict any use of the information to criminally investigate or prosecute any alcohol or drug abuse patient.[facility] HospitalIn the event this information is protected by the Federal Confidentiality of Alcohol and Drug Abuse Patient Records regulations: The Federal rules restrict any use of the information to criminally investigate or prosecute any alcohol or drug abuse patient.[facility] HospitalIn the event this information is protected by the Federal Confidentiality of Alcohol and Drug Abuse Patient Records regulations: The Federal rules restrict any use of the information to criminally investigate or prosecute any alcohol or drug abuse patient.[facility] HospitalIn the event this information is protected by the Federal Confidentiality of Alcohol and Drug Abuse Patient Records regulations: The Federal rules restrict any use of the information to criminally investigate or prosecute any alcohol or drug abuse patient.[facility] HospitalIn the event this information is protected by the Federal Confidentiality of Alcohol and Drug Abuse Patient Records regulations: The Federal rules restrict any use of the information to criminally investigate or prosecute any alcohol or drug abuse patient.[facility] HospitalIn the event this information is protected by the Federal Confidentiality of Alcohol and Drug Abuse Patient Records regulations: The Federal rules restrict any use of the information to criminally investigate or prosecute any alcohol or drug abuse patient.[facility] HospitalIn the event this information is protected by the Federal Confidentiality of Alcohol and Drug Abuse Patient Records regulations: The Federal rules restrict any use of the information to criminally investigate or prosecute any alcohol or drug abuse patient.[facility] HospitalIn the event this information is protected by the Federal Confidentiality of Alcohol and Drug Abuse Patient Records regulations: The Federal rules restrict any use of the information to criminally investigate or prosecute any alcohol or drug abuse patient.[facility] HospitalIn the event this information is protected by the Federal Confidentiality of Alcohol and Drug Abuse Patient Records regulations: The Federal rules restrict any use of the information to criminally investigate or prosecute any alcohol or drug abuse patient.[facility] HospitalIn the event this information is protected by the Federal Confidentiality of Alcohol and Drug Abuse Patient Records regulations: The Federal rules restrict any use of the information to criminally investigate or prosecute any alcohol or drug abuse patient.[facility] HospitalIn the event this information is protected by the Federal Confidentiality of Alcohol and Drug Abuse Patient Records regulations: The Federal rules restrict any use of the information to criminally investigate or prosecute any alcohol or drug abuse patient.[facility] HospitalIn the event this information is protected by the Federal Confidentiality of Alcohol and Drug Abuse Patient Records regulations: The Federal rules restrict any use of the information to criminally investigate or prosecute any alcohol or drug abuse patient.[facility] HospitalIn the event this information is protected by the Federal Confidentiality of Alcohol and Drug Abuse Patient Records regulations: The Federal rules restrict any use of the information to criminally investigate or prosecute any alcohol or drug abuse patient.[facility] HospitalIn the event this information is protected by the Federal Confidentiality of Alcohol and Drug Abuse Patient Records regulations: The Federal rules restrict any use of the information to criminally investigate or prosecute any alcohol or drug abuse patient.[facility] HospitalIn the event this information is protected by the Federal Confidentiality of Alcohol and Drug Abuse Patient Records regulations: The Federal rules restrict any use of the information to criminally investigate or prosecute any alcohol or drug abuse patient.[facility] HospitalIn the event this information is protected by the Federal Confidentiality of Alcohol and Drug Abuse Patient Records regulations: The Federal rules restrict any use of the information to criminally investigate or prosecute any alcohol or drug abuse patient.[facility] HospitalIn the event this information is protected by the Federal Confidentiality of Alcohol and Drug Abuse Patient Records regulations: The Federal rules restrict any use of the information to criminally investigate or prosecute any alcohol or drug abuse patient.[facility] HospitalIn the event this information is protected by the Federal Confidentiality of Alcohol and Drug Abuse Patient Records regulations: The Federal rules restrict any use of the information to criminally investigate or prosecute any alcohol or drug abuse patient.[facility] HospitalIn the event this information is protected by the Federal Confidentiality of Alcohol and Drug Abuse Patient Records regulations: The Federal rules restrict any use of the information to criminally investigate or prosecute any alcohol or drug abuse patient.[facility] HospitalIn the event this information is protected by the Federal Confidentiality of Alcohol and Drug Abuse Patient Records regulations: The Federal rules restrict any use of the information to criminally investigate or prosecute any alcohol or drug abuse patient.[facility] HospitalIn the event this information is protected by the Federal Confidentiality of Alcohol and Drug Abuse Patient Records regulations: The Federal rules restrict any use of the information to criminally investigate or prosecute any alcohol or drug abuse patient.[facility] HospitalIn the event this information is protected by the Federal Confidentiality of Alcohol and Drug Abuse Patient Records regulations: The Federal rules restrict any use of the information to criminally investigate or prosecute any alcohol or drug abuse patient.[facility] HospitalIn the event this information is protected by the Federal Confidentiality of Alcohol and Drug Abuse Patient Records regulations: The Federal rules restrict any use of the information to criminally investigate or prosecute any alcohol or drug abuse patient.[facility] HospitalIn the event this information is protected by the Federal Confidentiality of Alcohol and Drug Abuse Patient Records regulations: The Federal rules restrict any use of the information to criminally investigate or prosecute any alcohol or drug abuse patient.[facility] HospitalIn the event this information is protected by the Federal Confidentiality of Alcohol and Drug Abuse Patient Records regulations: The Federal rules restrict any use of the information to criminally investigate or prosecute any alcohol or drug abuse patient.[facility] HospitalIn the event this information is protected by the Federal Confidentiality of Alcohol and Drug Abuse Patient Records regulations: The Federal rules restrict any use of the information to criminally investigate or prosecute any alcohol or drug abuse patient.[facility] HospitalIn the event this information is protected by the Federal Confidentiality of Alcohol and Drug Abuse Patient Records regulations: The Federal rules restrict any use of the information to criminally investigate or prosecute any alcohol or drug abuse patient.[facility] HospitalIn the event this information is protected by the Federal Confidentiality of Alcohol and Drug Abuse Patient Records regulations: The Federal rules restrict any use of the information to criminally investigate or prosecute any alcohol or drug abuse patient.[facility] HospitalIn the event this information is protected by the Federal Confidentiality of Alcohol and Drug Abuse Patient Records regulations: The Federal rules restrict any use of the information to criminally investigate or prosecute any alcohol or drug abuse patient.[facility] HospitalIn the event this information is protected by the Federal Confidentiality of Alcohol and Drug Abuse Patient Records regulations: The Federal rules restrict any use of the information to criminally investigate or prosecute any alcohol or drug abuse patient.[facility] HospitalIn the event this information is protected by the Federal Confidentiality of Alcohol and Drug Abuse Patient Records regulations: The Federal rules restrict any use of the information to criminally investigate or prosecute any alcohol or drug abuse patient.[facility] HospitalIn the event this information is protected by the Federal Confidentiality of Alcohol and Drug Abuse Patient Records regulations: The Federal rules restrict any use of the information to criminally investigate or prosecute any alcohol or drug abuse patient.[facility] HospitalIn the event this information is protected by the Federal Confidentiality of Alcohol and Drug Abuse Patient Records regulations: The Federal rules restrict any use of the information to criminally investigate or prosecute any alcohol or drug abuse patient.[facility] HospitalIn the event this information is protected by the Federal Confidentiality of Alcohol and Drug Abuse Patient Records regulations: The Federal rules restrict any use of the information to criminally investigate or prosecute any alcohol or drug abuse patient.[facility] HospitalIn the event this information is protected by the Federal Confidentiality of Alcohol and Drug Abuse Patient Records regulations: The Federal rules restrict any use of the information to criminally investigate or prosecute any alcohol or drug abuse patient.[facility] HospitalIn the event this information is protected by the Federal Confidentiality of Alcohol and Drug Abuse Patient Records regulations: The Federal rules restrict any use of the information to criminally investigate or prosecute any alcohol or drug abuse patient.[facility] HospitalIn the event this information is protected by the Federal Confidentiality of Alcohol and Drug Abuse Patient Records regulations: The Federal rules restrict any use of the information to criminally investigate or prosecute any alcohol or drug abuse patient.[facility] HospitalIn the event this information is protected by the Federal Confidentiality of Alcohol and Drug Abuse Patient Records regulations: The Federal rules restrict any use of the information to criminally investigate or prosecute any alcohol or drug abuse patient.[facility] HospitalIn the event this information is protected by the Federal Confidentiality of Alcohol and Drug Abuse Patient Records regulations: The Federal rules restrict any use of the information to criminally investigate or prosecute any alcohol or drug abuse patient.[facility] HospitalIn the event this information is protected by the Federal Confidentiality of Alcohol and Drug Abuse Patient Records regulations: The Federal rules restrict any use of the information to criminally investigate or prosecute any alcohol or drug abuse patient.[facility] HospitalIn the event this information is protected by the Federal Confidentiality of Alcohol and Drug Abuse Patient Records regulations: The Federal rules restrict any use of the information to criminally investigate or prosecute any alcohol or drug abuse patient.[facility] HospitalIn the event this information is protected by the Federal Confidentiality of Alcohol and Drug Abuse Patient Records regulations: The Federal rules restrict any use of the information to criminally investigate or prosecute any alcohol or drug abuse patient.[facility] HospitalIn the event this information is protected by the Federal Confidentiality of Alcohol and Drug Abuse Patient Records regulations: The Federal rules restrict any use of the information to criminally investigate or prosecute any alcohol or drug abuse patient.[facility] HospitalIn the event this information is protected by the Federal Confidentiality of Alcohol and Drug Abuse Patient Records regulations: The Federal rules restrict any use of the information to criminally investigate or prosecute any alcohol or drug abuse patient.[facility] HospitalIn the event this information is protected by the Federal Confidentiality of Alcohol and Drug Abuse Patient Records regulations: The Federal rules restrict any use of the information to criminally investigate or prosecute any alcohol or drug abuse patient.[facility] HospitalIn the event this information is protected by the Federal Confidentiality of Alcohol and Drug Abuse Patient Records regulations: The Federal rules restrict any use of the information to criminally investigate or prosecute any alcohol or drug abuse patient.[facility] HospitalIn the event this information is protected by the Federal Confidentiality of Alcohol and Drug Abuse Patient Records regulations: The Federal rules restrict any use of the information to criminally investigate or prosecute any alcohol or drug abuse patient.[facility] HospitalIn the event this information is protected by the Federal Confidentiality of Alcohol and Drug Abuse Patient Records regulations: The Federal rules restrict any use of the information to criminally investigate or prosecute any alcohol or drug abuse patient.[facility] HospitalIn the event this information is protected by the Federal Confidentiality of Alcohol and Drug Abuse Patient Records regulations: The Federal rules restrict any use of the information to criminally investigate or prosecute any alcohol or drug abuse patient.[facility] HospitalIn the event this information is protected by the Federal Confidentiality of Alcohol and Drug Abuse Patient Records regulations: The Federal rules restrict any use of the information to criminally investigate or prosecute any alcohol or drug abuse patient.[facility] HospitalIn the event this information is protected by the Federal Confidentiality of Alcohol and Drug Abuse Patient Records regulations: The Federal rules restrict any use of the information to criminally investigate or prosecute any alcohol or drug abuse patient.[facility] HospitalIn the event this information is protected by the Federal Confidentiality of Alcohol and Drug Abuse Patient Records regulations: The Federal rules restrict any use of the information to criminally investigate or prosecute any alcohol or drug abuse patient.[facility] HospitalIn the event this information is protected by the Federal Confidentiality of Alcohol and Drug Abuse Patient Records regulations: The Federal rules restrict any use of the information to criminally investigate or prosecute any alcohol or drug abuse patient.[facility] HospitalIn the event this information is protected by the Federal Confidentiality of Alcohol and Drug Abuse Patient Records regulations: The Federal rules restrict any use of the information to criminally investigate or prosecute any alcohol or drug abuse patient.[facility] HospitalIn the event this information is protected by the Federal Confidentiality of Alcohol and Drug Abuse Patient Records regulations: The Federal rules restrict any use of the information to criminally investigate or prosecute any alcohol or drug abuse patient.[facility] HospitalIn the event this information is protected by the Federal Confidentiality of Alcohol and Drug Abuse Patient Records regulations: The Federal rules restrict any use of the information to criminally investigate or prosecute any alcohol or drug abuse patient.[facility] HospitalIn the event this information is protected by the Federal Confidentiality of Alcohol and Drug Abuse Patient Records regulations: The Federal rules restrict any use of the information to criminally investigate or prosecute any alcohol or drug abuse patient.[facility] HospitalIn the event this information is protected by the Federal Confidentiality of Alcohol and Drug Abuse Patient Records regulations: The Federal rules restrict any use of the information to criminally investigate or prosecute any alcohol or drug abuse patient.[facility] HospitalIn the event this information is protected by the Federal Confidentiality of Alcohol and Drug Abuse Patient Records regulations: The Federal rules restrict any use of the information to criminally investigate or prosecute any alcohol or drug abuse patient.[facility] HospitalIn the event this information is protected by the Federal Confidentiality of Alcohol and Drug Abuse Patient Records regulations: The Federal rules restrict any use of the information to criminally investigate or prosecute any alcohol or drug abuse patient.[facility] HospitalIn the event this information is protected by the Federal Confidentiality of Alcohol and Drug Abuse Patient Records regulations: The Federal rules restrict any use of the information to criminally investigate or prosecute any alcohol or drug abuse patient.[facility] HospitalIn the event this information is protected by the Federal Confidentiality of Alcohol and Drug Abuse Patient Records regulations: The Federal rules restrict any use of the information to criminally investigate or prosecute any alcohol or drug abuse patient.[facility] HospitalIn the event this information is protected by the Federal Confidentiality of Alcohol and Drug Abuse Patient Records regulations: The Federal rules restrict any use of the information to criminally investigate or prosecute any alcohol or drug abuse patient.[facility] Reason for Visit (unrecogniz ed section and content) ReasonCommentsNew PatientReasonCommentsFollow UpReasonCommentsOrdersPlaquenil ReasonCommentsRefill RequestReasonOnset DateCommentsRefill Dylsgsl2603/07/2023 ReasonOnset DateCommentsRefill Vamaqle7504/13/2023ReasonCommentsTRIAGEReason CommentsHeadacheSpecialtyDiagnoses / ProceduresReferred By ContactReferred To Contact Diagnoses Brain mass Procedures CONSULT TO HEADACHE CLINIC OFFICE/OUTPATIENT [facility] 60-74 MINUTES Laron Lou DO, PhD [address] [place] [address] Referral IDStatusReasonStart DateExpiration DateVisits RequestedVisits [id number] PCP Requested Referral /[id number] UpdateDiscuss Surgery Marcheason CommentsConsultReasonCommentsCare Coordinationfollow upReasonOnset DateComments Refill Jkpmpcg88/27/2024ReasonOnset DateCommentsRefill Rutkydk32/29/2024Reason CommentsLab Orders/FAXReasonCommentsSchedule SurgeryReasonCommentsSchedule SurgerySurgery PlanningReasonOnset DateCommentsRefill Dbndgnr7301/27/2024Specialty Diagnoses / ProceduresReferred By ContactReferred To ContactCT IMAGING Diagnoses 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) Procedures CT BRAIN STEREOLOCAL WO IVCON CT GUIDANCE STEREOTACTIC LOCALIZATION Erik Pineda MD [address] [place] [address] Ct Imaging [place] [address] Referral IDStatusReSt DateExpiration DateVisits RequestedVisits [id number] Auto-Generated Referral [id number] / ProceduresReferred By ContactReferred To ContactMR IMAGING Diagnoses Benign neoplasm of meninges (HCC) Procedures MRI SKULL BASE WO/W IVCON MRI BRAIN BRAIN STEM W/O W/CONTRAST MATERIAL Erik Pineda MD [address] [place] [address] Mr Imaging [place] [address] Referral IDStatusReasonSt DateExpiration DateVisits RequestedVisits [id number] Auto-Generated Referral [id number]seygrfjll PatientPre op consentReasonCommentsDaily HeadacheReasonCommentsepidural steroid injection ReasonCommentsInsurance AuthorizationRobaxin MA - Medicare / [employer]. ReasonOnset DateCommentsRefill Jpompab12/11/2024ReasonCommentsJoint PainReason CommentsResultsReasonOnset DateCommentsRefill Lnawzpn09/15/2024ReasonComments ResultsLab results from [facility] HospitalasonCommentsCare Coordinator - OtherLab order problemReasonOnset DateCommentsRefill Request 10/10/2024ReasonCommentsCare CoordinationMyChart Follow up - Surgery Planning ReasonCommentsMed Change RequestReasonCommentsEstablished PatientReasonComments PreOp CallReasonCommentsSurgical FollowupReasonCommentsPatient UpdateReason CommentsAnesthesia ConsultSpecialtyDiagnoses / ProceduresReferred By Contact Referred To Contact Diagnoses Intracranial meningioma (HCC) Preop testing Procedures REFER TO [facility] - PREOPERATIVE OPTIMIZATION OFFICE/OUTPATIENT [facility] 60 MINUTES Erik Pineda MD [address] [place] [address] Phone: tel: fax: Referral IDStatusReasonStart DateExpiration DateVisits RequestedVisits [id number] PCP Requested Referral [id number] PatientReasonCommentsPost OpReason Onset DateCommentsRefill Zvmdobl6703/15/2025ReasonOnset DateCommentsRefill Request 03/20/2025ReasonCommentsHeadacheReasonCommentsReferralCOPD and chronic fatigue and [...] MemberRelationshipSpecialtyStart DateEnd Jesus Gonzalez MD [address] [place] [address] [facility]01/14/21 Team Status: Inactive Member Role Status Dates Jesus Gonzalez MD Primary Care Provider Active Elyssa Gomes MDAttrebecca ProviderActive Team Status: Inactive Member Role Status Dates Jesus Gonzalez MD Primary Care Provider Active Gunner Cummings DPM MSAttending ProviderActiveTeam MemberRelationship SpecialtyStart DateEnd Date Jesus Gonzalez MD [address] [place] [address] ReferringFamily Medicine01/14/21Team MemberRelationshipSpecialtyStart DateEnd Date Jesus Gonzalez MD [address] [place] [address] ReferringFamily Medicine01/14/21Team MemberRelationshipSpecialtyStart DateEnd Date Jesus Gonzalez MD ReferringFamily Medicine01/14/21Team MemberRelationshipSpecialtyStart DateEnd Date Jesus Gonzalez MD ReferringFamily Medicine01/14/21Team MemberRelationshipSpecialtyStart DateEnd Date Jesus Gonzalez MD ReferringFamily Medicine01/14/21Team MemberRelationshipSpecialtyStart DateEnd Date Jesus Gonzalez MD ReferringFamily Medicine01/14/21Team MemberRelationshipSpecialtyStart DateEnd Date Jesus Gonzalez MD ReferringFamily Medicine01/14/21 Team Status: Inactive Member Role Status David Gonzalez MD Primary Care Provider Active Zulema Mckinney ([facility]) , APRNAttending ProviderActiveTeam MemberRelationship SpecialtyStart DateEnd Date Jesus Gonzalez MD [address] [place] [facility] [address] PCP - GeneralFamily Medicine05/12/23 Jesus Gonzalez MD ReferringFamily Medicine01/14/21 Jesus Gonzalez MD [address] [facility] [place] [address] ReferringFamily Medicine05/12/23Team MemberRelationshipSpecialtyStart DateEnd Date Jesus Gonzalez MD [address] [facility] [place] [address] PCP - GeneralFamily Medicine05/12/23 Jesus Gonzalez MD ReferringFamily Medicine01/14/21 Jesus Gonzalez MD [address] [facility] [place] [address] ReferringFamily Medicine05/12/23Team MemberRelationshipSpecialtyStart DateEnd Date Jesus Gonzalez MD [address] [facility] [place] [address] PCP - GeneralFamily Medicine05/12/23 Jesus Gonzalez MD ReferringFamily Medicine01/14/21 Jesus Gonzalez MD [address] [facility] [place] [address] ReferringFamily Medicine05/12/23Team MemberRelationshipSpecialtyStart DateEnd Date Jesus Gonzalez MD [address] [place] [facility] [address] PCP - Generalmily Medicine05/12/23 Jesus Gonzalez MD ReferringFamily Medicine01/14/21 Jesus Gonzalez MD [address] [place] [facility] [address] [facility]/12/23Te MemberRelationshipSpecialtyStart DateEnd Jesus Gonzalez MD [address] [place] [facility] [address] PCP - Generalmi Medicine05/12/23 Jesus Gonzalez MD ReferringFamily Medicine01/14/21 Jesus Gonzalez MD [address] [place] [facility] [address] ReferringFamily Medicine05/12/23Team MemberRelationshipSpecialtyStart DateEnd Date Jseus Gonzalez MD [address] [facility] [place] [address] PCP - Generalmi Medicine05/12/23 Jesus Gonzalez MD ReferringFamily Medicine01/14/21 Jesus Gonzalez MD [address] [facility] [place] [address] ReferringFamily Medicine05/12/23Team MemberRelationshipSpecialtyStart DateEnd Jesus Gonzalez MD [address] [place] [address] PCP - GeneralFamily Medicine05/12/23 Jesus Gonzalez MD ReferringFamily Medicine01/14/21 Jesus Gonzalez MD [address] [place] [address] ReferringFamily Medicine05/12/23Team MemberRelationshipSpecialtyStart DateEnd [facility] Jesus Gonzalez MD [address] [place] [address] PCP - GeneralFamily Medicine05/12/23 Jesus Gonzalez MD ReferringFamily Medicine01/14/21 Jesus Gonzalez MD [address] [place] [address] ReferringFamily Medicine05/12/23Team MemberRelationshipSpecialtyStart End Date Jesus Gonzalez MD [address] [facility] [place] [address] PCP - GeneralFamily Medicine05/12/23 Jesus Gonzalez MD ReferringFamily Medicine01/14/21 Jesus Gonzalez MD [address] [place] [address] [facility]05/12/23 Team Status: Inactive Member Role Status David [...] MemberRelationshipSpecialtyStart DateEnd Date Jesus Gonzalez MD [address] [place] [address] PCP - Generalmily Medicine05/12/23 Jesus Gonzalez MD [facility]01/14/21 Jesus Gonzalez MD [address] [place] [address] Referring[facility]05/12/23Team MemberRelationshipSpecialtyStart DateEnd Date Jesus Gonzalez MD [address] [place] [address] PCP - GeneralFamily Medicine05/12/23 Jesus Gonzalez MD [facility]01/14/21 Jesus Gonzalez MD [address] [facility] [place] [address] [facility]05/12/23Team MemberRelationshipSpecialtyStart DateEnd Date Jesus Gonzalez MD [address] [place] [address] PCP - [facility]05/12/23 Jesus Gonzalez MD [facility]01/14/21 Jesus Gonzalez MD [address] [facility] [place] [address] [facility]05/12/23 Team Status: Inactive Member Role Status Dates [...] DateEnd Date Jesus Gonzalez MD [address] [facility] [place] [address] PCP - GeneralFamily Medicine05/12/23 Jesus Gonzalez MD ReferringFamily Medicine01/14/21 Jesus Gonzalez MD [address] [facility] [place] [address] [facility]05/12/23Team MemberRelationshipSpecialtyStart DateEnd Date Jesus Gonzalez MD [address] [facility] [place] [address] PCP - [facility] Medicine05/12/23 Jesus Gonzalez MD [facility]01/14/21 Jesus Gonzalez MD [address] [facility] [place] [address] Referring[facility]05/12/23Team MemberRelationshipSpecialtyStart End Jesus Gonzalez MD [address] [facility] [place] [address] PCP - [facility]05/12/23 Jesus Gonzalez MD [facility]01/14/21 Jesus Gonzalez MD [address] [facility] [place] [address] [facility]erring[facility]05/12/23 Team Status: Inactive Member Role Status Dates Jesus Gonzalez MD Primary Care Provide r, Attending Provider Active Start: May 12, 2024 End: May 12, 2024Team MemberRelationshipSpecialtyStart DateEnd Date Jesus Gonazlez MD [address] [facility] [place] [address] PCP - GeneralFamily Medicine05/12/23 Jesus Gonzalez MD ReferringFamily Medicine01/14/21 Jesus Gonzalez MD [address] [facility] [place] [address] Referringmi Medicine05/12/23Team MemberRelationshipSpecialtyStart DateEnd Jesus Gonzalez MD [address] [facility] [place] [address] PCP - GeneralFamily Medicine05/12/23 Jesus Gonzalez MD ReferringFami Medicine01/14/21 Jesus Gonzalez MD [address] [facility] [place] [address] [facility]erringFaP[facility]05/12/23 Team Status: Inactive Member Role Status Dates Jesus Gonzalez MD Primary Care Provider Active Start: June 21, 2024 End: June 21Sanchez Horn ProviderActiveStart: June 21, 2024 End: June 21, 2024 Team Status: Inactive Member Role Status Dates Jesus Gonzalez MD Primary Care Provide rSkylar Provider Active Start: June 22, 2024 End: June 22, 2024Team MemberRelationshipSpecialtyStart DateEnd Date Jeuss Gonzalez MD [address] [place] [facility] [place] [address] PCP - GeneralFamily Medicine03/12/23Team MemberRelationshipSpecialtyStart DateEnd Date Jesus Gonzalez MD [address] [place] [address] PCP - [facility]05/12/23 Jesus Gonzalez MD [facility]01/14/21 Jesus Gonzalez MD [address] [place] [address] [facility]05/12/23 Team Status: Inactive Member Role Status David [...] DateEnd Date Jesus Gonzalez MD [address] [place] [address] PCP - [facility]05/12/23 Jesus Gonzalez MD [facility]01/14/21 Jesus Gonzalez MD [address] [place] [address] [facility]erring[facility]05/12/23Team MemberRelationshipSpecialtyStart DateEnd Jesus Gonzalez MD [address] [place] [address] PCP - [facility]05/12/23 Jesus Gonzalez MD [facility]01/14/21 Jesus Gonzalez MD [address] [place] [address] [facility]05/12/23 Team Status: Active Member Role Status David [...] MemberRelationshipSpecialtyStart DateEnd Jesus Gonzalez MD [address] [facility] [place] [address] PCP - [facility]05/12/23 Jesus Gonzalez MD [facility]01/14/21 Jesus Gonzalez MD [address] [place] [address] [facility]erring[facility]05/12/23 Team Status: Inactive Member Role Status Dates [...] DateEnd Date Jesus Gonzalez MD [address] [place] [address] [facility]/12/23 Jesus Gonzalez MD [facility]erring[facility] Medicine01/14/21 Jesus Gonzalez MD [address] [place] [address] [facility]05/12/23 Team Status: Inactive Member Role Status Dates Jesus Gonzalez MD Primary Care Provider Active Start: February 01, 2025 End: February 01Sanchez Horn ProviderActiveStart: February 01, 2025 End: February 01, 2025 Team Status: Inactive Member Role Status Dates Jesus Gonzalez MD Primary Care Provide r, Attending Provider Active Start: February 10, 2025 End: February 10, 2025Team MemberRelationshipSpecialtyStart DateEnd Date Jesus Gonzalez MD [address] [place] [address] PCP - GeneralFamily Medicine05/12/23 Jesus Gonzalez MD ReferringFamily Medicine01/14/21 Jesus Gonzalez MD [address] [facility] [place] [address] ReferringFamily Medicine05/12/23Team MemberRelationshipSpecialtyStart DateEnd Date Jesus Gonzalez MD [address] [facility] [place] [address] PCP - GeneralP[facility]05/12/23 Jesus Gonzalez MD ReferringFamily Medicine01/14/21 Jesus Gonzalez MD [address] [facility] [place] [address] ReferringFamiFair[facility]05/12/23Team MemberRelationshipSpecialtyStart End Jesus Gonzalez MD [address] [facility] [place] [address] PCP - Generalmily Medicine05/12/23 Jesus Gonzalez MD ReferringFami Medicine01/14/21 Jesus Gonzalez MD [address] [facility] [place] [address] ReferringFami Medicine05/12/23Team MemberRelationshipSpecialtyStart DateEnd Date Jesus Gonzalez MD [address] [facility] [place] [address] PCP - GeneralFamily Medicine05/12/23 Jesus Gonzalez MD ReferringFamily Medicine01/14/21 Jesus Gonzalez MD [address] [facility] [place] [address] ReferringFamily Medicine05/12/23Team MemberRelationshipSpecialtyStart DateEnd Date Jesus Gonzalez MD [address] [facility] [place] [address] PCP - GeneralFami Medicine05/12/23 Jesus Gonzalez MD ReferringFamily Medicine01/14/21 Jesus Gonzalez MD [address] [facility] [place] [address] ReferringFami Medicine05/12/23Team MemberRelationshipSpecialtyStart DateEnd Date Jesus Gonzalez MD [address] [facility] [place] [address] PCP - Generalmily Medicine05/12/23 Jesus Gonzalez MD ReferringFamily Medicine01/14/21 Jesus Gonzalez MD [address] [facility] [place] [address] ReferringFamily Medicine05/12/23Team MemberRelationshipSpecialtyStart DateEnd Date Jesus Gonzalez MD [address] [facility] [place] [address] PCP - GeneralFamily Medicine05/12/23 Jesus Gonzalez MD ReferringFamily Medicine01/14/21 Jesus Gonzalez MD [address] [facility] [place] [address] ReferringFamily Medicine05/12/23Te MemberRelationshipSpecialtyStart End Jesus Gonzalez MD [address] [facility] [place] [address] PCP - Generalmily Medicine05/12/23 Jesus Gonzalez MD ReferringFamily Medicine01/14/21 Jesus Gonzalez MD [address] [facility] [place] [address] ReferringFamily Medicine05/12/23Te MemberRelationshipSpecialtyStart End Jesus Gonzalez MD [address] [facility] [place] [address] PCP - GeneralFamily Medicine05/12/23 Jesus Gonzalez MD ReferringFamily Medicine01/14/21 Jesus Gonzalez MD [address] [facility] [place] [address] ReferringFamily Medicine05/12/23Team MemberRelationshipSpecialtyStart DateEnd Date Jesus Gonzalez MD [address] [facility] [place] [address] PCP - Generalmily Medicine05/12/23 Jesus Gonzalez MD ReferringFamily Medicine01/14/21 Jesus Gonzalez MD [address] [facility] [place] [address] [facility]erring[facility]05/12/23Team MemberRelationshipSpecialtyStart DateEnd Date Jesus Gonzalez MD [address] [facility] [place] [address] PCP - Generalmily Medicine05/12/23 Jesus Gonzalez MD Referringmi Medicine01/14/21 Jesus Gonzalez MD [address] [facility] [place] [address] ReferringmiFairview Park Hospital05/12/23Team MemberRelationshipSpecialtyStart DateEnd Date Jesus Gonzalez MD [address] [facility] [place] [address] PCP - Generalmily Medicine05/12/23 Jesus Gonzalez MD ReferringFami Medicine01/14/21 Jesus Gonzalez MD [address] [facility] [place] [address] Referring[facility]05/12/23Team MemberRelationshipSpecialtyStart DateEnd Date Jesus Gonzalez MD [address] [place] [address] PCP - [facility]05/12/23 Jesus Gonzalez MD [facility]01/14/21 Jesus Gonzalez MD [address] [place] [address] [facility]05/12/23 Team Status: Inactive Member Role Status Dates [...] DateEnd Date Jesus Gonzalez MD [address] [place] [address] PCP - [facility]05/12/23 Jesus Gonzalez MD [facility]01/14/21 Jesus Gonzalez MD [address] [place] [address] [facility]05/12/23 Name Effective Dates (start - stop) Status Members No Information Team MemberRelationshipSpecialtyStart DateEnd Jesus Gonzalez MD [address] [facility] [place] [address] PCP - Generalmily Medicine05/12/23 Jesus Gonzalez MD ReferringFamily Medicine01/14/21 Jesus Gonzalez MD [address] [facility] [place] [address] ReferringFamiFairview Park [facility]05/12/23Team MemberRelationshipSpecialtyStart End Jesus Gonzalez MD [address] [facility] [place] [address] PCP - Generalmi Medicine05/12/23 Jesus Gonzalez MD ReferringFami Medicine01/14/21 Jesus Gonzalez MD [address] [facility] [place] [address] ReferringFami Medicine05/12/23Team MemberRelationshipSpecialtyStart DateEnd Jesus Gonzalez MD [address] [facility] [place] [address] PCP - Generalmily Medicine05/12/23 Jesus Gonzalez MD ReferringFami Medicine01/14/21 Jesus Gonzalez MD [address] [facility] [place] [address] [facility]05/12/23 Team Status: Inactive Member Role Status Dates Jesus Gonzalez MD Primary Care Provider Active Start: May 26, 2025 End: May 26, 2025DoSanchez Reyes ProviderActiveStart: May 26, 2025 End: May 26, 2025Team MemberRelationshipSpecialtyStart DateEnd Date Jesus Gonzalez MD [facility] - [facility]03/12/23 Team Status: Active Member Role [...] 2025Team MemberRelationshipSpecialtyStart DateEnd Date Jesus Gonzalez MD [facility] - [facility]03/12/23Team MemberRelationshipSpecialtyStart DateEnd Date Jesus Gonzalez MD [facility]03/12/23 Team Status: Inactive Member Role Status [...] Start: June 26, 2025 End: June 26, 2025DoSanchez Reyes ProviderActiveStart: June 26, 2025 End: June 26, 2025 Team Status: Inactive Member Role Status David Gonzalez MD Primary Care Provider Active Start: June 27, 2025 End: June 27rick Ocampo NP-Mona ProviderActiveStart: June 27, 2025 End: June 27, 2025Team MemberRelationshipSpecialtyStart DateEnd Jesus Carmona MD PCP - [facility]03/12/23Team MemberRelationshipSpecialtyStart DateEnd Jesus Carmona MD PCP - [facility]03/12/23Team MemberRelationshipSpecialtyStart DateEnd Jesus Carmona MD PCP - [facility]03/12/23 Team Status: Active Member Role/Relationship [...] BE BASED ON THE PRIMARY CLINICAL RECORDS. [facility] [employer] provides no warranty or guarantee of the accuracy or completeness of information in this document.
--- OUTSIDE RECORDS SUMMARY | 2025-08-07 06:54 | XMS_ITS | Clinical Summary ---
Author Organization [facility] Address [address] [place], [place] [address] Care Team Providers Care Hotel Receptionist Name Role Phone Jesus Camacho MD Unavailable Jesus Camacho MD Unavailable [phone] Jesus Camacho MD Primary Care Provider [phone] Allergies No known active allergies Medications MedicationSigDispense [...] mouth daily at bedtime. [address] (CYMBALTA) 30 mg capsule [...] BY MOUTH EVERY DAY 60 tablet 5Active hydrOXYchloroQUINE (PLAQUENIL) 200 mg tablet Indications:Inflammatory arthritisTAKE 1 TABLET BY MOUTH TWICE A DAY 60 tablet 5Active hydrOXYchloroQUINE (PLAQUENIL) 200 mg tablet TAKE 1 TABLET BY MOUTH TWICE A DAY 60 tablet 5109/23/2024Discontinued methylPREDNISolone (MEDROL, BOUBACAR,) 4 mg Dose-Pack As instructed per package 1 tablet Expired Active Problems ProblemNoted DateDiagnosed DateDizziness and tkvcunpcj18/16/2025Meningioma 02/20/2025 Assessment & Plan (02/21/2025 12:31 PM [...] 8:03 AM EDT): Assessment: Controlled with dexilant Jsbylbqwqvbbqw28/03/2025 Assessment & Plan (02/21/2025 12:34 PM EDT): Treating with home synthroid 50mcg qday Assessment & Plan (02/14/2025 8:03 AM EDT): Assessment: Controlled with levothyroxine Class 3 severe obesity due to excess calories with serious comorbidity and body mass index (BMI) of40.0 to 44.9 in adult02/14/2025 Assessment & Plan (02/21/2025 12:36 PM EDT): [facility] nutrition education Assessment & Plan (02/14/2025 8:19 AM EDT): Assessment: Body mass index is 40.98 kg/m??. Inflammatory tqlwqepti34/11/2024 Assessment & Plan (02/14/2025 8:21 AM EDT): Assessment: Stable ON Plaquenil and prednisone as needed Follows with Dr. Villegas Rheumatology Intracranial /18/2023hronic tension-type headache, intractable 3Anxiety Assessment & Plan [...] treating with decadron 8bid (SSI, PPI) with shelter taper plan off over 1 week At risk for ngyclzzd66 Assessment & Plan (02/21/2025 12:38 PM EDT): Treating with periop keppra x 1 week Neoplasm causing mass effect and brain compression on adjacent structures Assessment & Plan (02/21/2025 12:39 PM EDT): R/t meningioma, noted on preop MRI See meningioma POC Gnhwpaanvj72/03/2025 Encounters DateTypeDepartmentCare HsjyMbkddzhuyss40/18/2025 Patient Msg [facility] [address] [place] [address] Renée De La O, MARILEE.ATTENDANT HONOR BAR Appointment Bgkvmzojplj10/09/2025Refill Rheumatology [address] [place] [address] Zulema Mclean MD Refill Wmdhlif2207/06/2025 Get Medical Advice Rheumatology [address] [place] [address] Zulema Mclean MD Nchwqyxks33/11/2025Refill Rheumatology [address] [place] [address] Zulema Mclean MD Refill Iaalimk3706/22/2025 2:20 PM EDTOffice Visit Rheumatology [address] [place] [address] Zulema Mclean MD Fibromyalgia (Primary Dx); Inflammatory arthritis; Encounter for medication fjhigjssmk03/07/1250Uuosny88/03/2025Refill Neurology [facility] [address] [place] [address] Rachele Fenton APRN.ATTENDANT HONOR BAR Refill Yijsica2205/15/2025Refill Rheumatology [address] [place] [address] Zulema Mclean MD Refill Requestfrom Last 3 Months Family History Medical HistoryRelationCommentsSeizuresBrotherRelationStatusCommentsBrotherAlive MotherAliveSon 1AliveSon 2Alive Social History Tobacco UseTypesPacks/DayYears UsedDateSmoking Tobacco: FormerSmokeless Tobacco: Never Tobacco Cessation:Counseling Given: Not Answered Comments:Started 1994. Quit 2009. 1 ppd Alcohol UseStandard Drinks/WeekCommentsYes0 (1 standard drink = 0.6 oz pure alcohol)3-4 drinks on occasionPHQ-2AnswerDate RecordedPHQ-2 bekgw556rea Deprivation IndexAnswerDate RecordedNational Score (1-100), lower number is lower ybmp657906/01/2023State Score (1-10), lower number is lower muwh40506/01/2023 Data from: https://www.neighborhoodatlas.[facility].edu/. Last address used for fbmlbcmlern[address]06/01/2023CommentsNoSex and Gender InformationValueDate RecordedSex Assigned at HuxwdVlgigf68/14/2021 11:09 PM EDT Legal AbfDhdotv44/02/2012 8:01 AM ESTGender ThuipurnXcygyy71/14/2021 11:09 PM EDTSexual QherbzkydusEbilqopf15/14/2021 11:09 PM EDT Last Filed Vital Signs Vital SignReadingTime TakenCommentsBlood Ejbiwqgy992/7710 2:23 PM EDT Rjnae4983 2:23 PM AOYFqbrpbetwpg43.3 ??C (99.2 ??F)03/06/2025 10:11 AM EDTRespiratory Khrw010603/15/2025 12:03 PM EDTOxygen Qjgvekhgjm19%03/15/2025 12:03 PM EDTInhaled Oxygen Concentration--Xrbdhf189.4 kg (250 lb)06/22/2025 2:23 PM TIJSycvrt712.1 cm (5' 5 )06/22/2025 2:23 PM EDTBody Mass Index41. 2:23 PM EDT Plan of Treatment DateTypeDepartmentCare Team (Latest Contact Info)Akhcxvjhjjo96/13/2026 1:20 PM [facility] [place] [address] [place] [address] Benign neoplasm of meninges (HCC) [D32.9]10/09/2025 1:00 PM [facility] [address] [place] [address] Renée De La O, MARILEE.ATTENDANT HONOR BAR [address] [facility] [address] [place] [address] 6 Month Follow Up12/21/2025 2:20 PM EDTOffice Visit Rheumatology [address] [place] [address] Zulema Mclean MD [address] [facility] [address] [place] [address] 6 mo follow upHealth MaintenanceDue DateLast DoneCommentsDiabetic Foot Exam 1987Dilated Retinal Exam1987Urine Albumin:Creatinine Ratio1987 Annual PCP Team Chronic Disease Visit1995Depression Ungltkakt82/22/1996LDL Fkrinsbyffa00/22/1996Hepatitis B Vaccine (1 of 3 - 19+ 3-dose series)1996 Pneumococcal Vaccine (1 of 2 - PCV)1996Cervical Cancer Wndwnflfy23/22/1999 Mammogram Wifvbmsmw66/22/2018DTaP,Tdap,Td Vaccine (1 - Tdap) CT Liyzwujrhkey64/22/2023ologuard (FIT-DNA)11/05/20225656Qkswcrdovti26/22/2023 Colorectal Cancer Psuxhrzaz38/22/2023Fecal Occult Blood2022Sigmoidoscopy 2022Medicare Advantage Annual Wellness Visit09/14/2024ovid-19 Vaccine ( season)505/, 01/02/2021Influenza Vaccine (#1) /, 06/18/2022, 07/12/2021, Additional history umwwqbPnA2T /12/2024HIV SczbpitgzKpbwhcsmy05/24/2006Hepatitis C Screening Lzpeyrucg82/21/2021, 01/05/2006 Medical Devices ImplantedTypeAreaManufacturerDevice IdentifierShelf Expiration DateModel / Serial / LotPatch Duramatrix-Onlay Plus Collagen 2x2in Dural Regeneration Membrane - [id number] Implanted:Qty: 1 on 02/20/2025 by Jacky Pineda MD at [facility] Right: Head - CranialSTRYKER NEUR01/11/2027DMOP22 / / [id number] Bone 8 Hole Profile - [id number] Implanted:Qty: 1 [facility] - Cranial STRY-HOWM [id number] / / Plate 3d Large Box Low Profile Titanium Bone 2x2 Hole 1.5mm Screw - [id number] Implanted:Qty: 1 on 02/20/2025 [facility] Head - Cranial STRY-HOWM [id number] / / Plate Low Profile Titanium 12mm Bone 2 Hole Bar 1.5mm Screw Nonsterile - [id number] Implanted:Qty: 2 on 02/20/2025 [facility] Head - Cranial STRY-HOWM [id number] / / Cover 10mm Medium Titanium Aline Hole Low Profile Tab 1.5mm Screws - [id number] Implanted:Qty: 1 on 02/20/2025 [facility] Head - Cranial STRY-HOWM [id number] / / Screw Bone Madison Neuro 3 4mm 1.5mm Self Drill Axial Stability Latex - [id number] Implanted:Qty: 11 on [facility]20[facility] - Cranial STRY-HOWM [id number] / / Madison Neuro Axs Neuro Screw Disc Pre-Loaded 1.5mm X 4mm Implanted:Qty: 17 on 02/20/2025 [facility] Head - Cranial [id number] / / Procedures Procedure NamePriorityDate/TimeAssociated DiagnosisCommentsHEMOGLOBIN G6EQgffdtd 02/15/2025 12:56 PM EDT Pre-op evaluation Type 2 diabetes mellitus without complication, without long-term current use of insulin (HCC) *HEP C WPGxufzka27/21/2021 1:39 PM EDT Pain in joint, multiple sites HIV 1/2 COMBO WITH REFLEX TO DZWFDSOGLCCNRLN12/24/2006 3:17 PM EDT from Last 3 Months or Most Recently Relevant to Health Maintenance Results * HEMOGLOBIN A1C (02/15/2025 12:56 PM EDT)ComponentValueRef RangeTest Method Analysis TimePerformed AtPathologist SignatureHemoglobin A1C5.44.3 - 5.6 % 02/16/2025 6:33 AM [facility] LABComment:[place] Diabetes Association guidelines indicate that patients with HgbA1c in the range 5.7-6.4% are at increased risk for development of diabetes, and intervention by lifestyle modification may be beneficial. HgbA1c greater or equal to 6.5% is considered diagnostic of diabetes.Estimated Average Glucose 108mg/dL02/16/2025 6:33 AM [facility] LABComment:eAG: (Estimated average glucose) is a calculated value from HgbA1c and is advertising representative of the average blood glucose level in the last 2-3 month period.Specimen (Source)Anatomical Location / LateralityCollection Method / VolumeCollection TimeReceived TimeBloodBLOOD SPECIMEN / UnknownVenipuncture / Lmbmipw0002/15/2025 12:56 PM EDT02/15/2025 12:56 PM EDT Narrative Authorizing ProviderResult TypeResult StatusMarli Martin APRN.CNPLABORATORY Final ResultPerforming OrganizationAddressCity/State/ZIP CodePhone Number [facility] [address] [address], * HEP REMOTE PANEL BL (03/04/2021 1:39 PM EDT)ComponentValueRef RangeTest Method Analysis TimePerformed AtPathologist SignatureHep B Core Ab, TotalNegative Htpvtxqa06/21/2021 6:54 PM EDTCleveland Clinic LaboratoriesHep C Antibody IA YiyiisewSlvfprhb88/21/2021 6:55 PM EDTCleveland Clinic LaboratoriesHBsAg YkggpattUnfkiiwa20/21/2021 6:54 PM EDTCleveland Clinic LaboratoriesHep B Surface Ab, UbmvNarhizpuAyrofnpd88/21/2021 6:55 PM EDTCleveland Clinic LaboratoriesComment:NEGATIVESpecimen (Source)Anatomical Location / Laterality Collection Method / VolumeCollection TimeReceived BljoEltkg80/21/2021 1:39 PM EDT03/04/2021 1:41 PM EDT Narrative Authorizing ProviderResult TypeResult StatusSunavin Mclean MDLABORATORYFinal ResultPerforming OrganizationAddressCity/State/ZIP CodePhone Number [facility] [address] [facility] [place] [place] [address] [facility] [address] [place] [phone] * HIV AB 1&2 SCREEN (01/05/2006 3:17 PM EDT)ComponentValueRef RangeTest Method Analysis TimePerformed AtPathologist SignatureHIV 1 & 2 Ab (EIA)Non ReactiveNR [facility] LABComment: If results are indeterminate or otherwise inconsistent with an individual's clinical presentation or risk profile for HIV infection a repeat specimen is requested. A repeat specimen is also recommended for any individual identified positive for the first time. Specimen (Source)Anatomical Location / LateralityCollection Method / Volume Collection TimeReceived Time01/05/2006 3:17 PM EDT Narrative Authorizing ProviderResult TypeResult StatusBecolby CasarezABORATORYFinal Result Performing OrganizationAddressCity/State/ZIP CodePhone Number [facility] [address] [place] [address] from Last 3 Months or Most Recently Relevant to Health Maintenance Insurance Care Teams Team MemberRelationshipSpecialtyStart Date Jesus Camacho MD [address] [place] [address] PCP - GeneralFamily Medicine05/12/23 Jesus Camacho MD ReferringFamily Medicine01/14/21 Jesus Camacho MD [address] [place] [address] ReferringFamily Medicine05/12/23
--- OUTSIDE RECORDS SUMMARY | 2025-08-07 06:54 | XMS_ITS | Encounter Summary ---
Author Organization [facility] Address [address] [place] [address] Care Team Providers Care Procurement Director Name Role Phone Jesus Camacho MD Unavailable [phone] Jesus Camacho MD Unavailable [phone] Jesus Camacho MD Primary Care Provider [phone] Source Comments In the event this information is protected by the Federal Confidentiality of Alcohol and Drug AbusePatient Records regulations: The Federal rules restrict any use of the information to criminally investigate or prosecute any alcohol or drug abuse patient.[facility] Reason for Visit * ReasonCommentsRefill Request Encounter Details DateTypeDepartmentCare Team (Latest Contact Info)Zmlnmqoniwu33/09/2025Refill Rheumatology [address] [place], [place] [id number] Zulema Mclean MD [address] [facility] [address] [place] [address] Refill Request Social History Tobacco UseTypesPacks/DayYears UsedDateSmoking Tobacco: FormerSmokeless Tobacco: Never Comments:Started 1994. Quit 2009. 1 ppd Alcohol UseStandard Drinks/WeekCommentsYes0 (1 standard drink = 0.6 oz pure alcohol)3-4 drinks on occasionPHQ-2AnswerDate RecordedPHQ-2 rasqp7745Area Deprivation IndexAnswerDate RecordedNational Score (1-100), lower number is lower oeur104906/01/2023State Score (1-10), lower number is lower pzuq38306/01/2023 Data from: https://www.neighborhoodatlas.[facility].edu/. Last address used for sapxstsmwcp[address]06/01/[address]23CommentsNoSex and Gender InformationValueDate RecordedSex Assigned at ZmamuXeoghz77/14/2021 11:09 PM EDT Legal YzlOkvwpd97/02/2012 8:01 AM ESTGender QenfuibwVmozmu48/14/2021 11:09 PM EDTSexual PctpjlomsrpUigiytcw84/14/2021 11:09 PM EDTdocumented as of this encounter Miscellaneous Notes * Telephone Encounter - La Nena Waterman LPN - 07/25/2025 3:04 PM EST Eye exam done 12/20/2024. * Telephone Encounter - Zulema Mclean MD - 07/24/2025 4:42 PM EST She needs yearly eye exam. The following approved medication requests have been transmitted electronically. Requested Prescriptions Signed Prescriptions Disp Refills hydrOXYchloroQUINE (PLAQUENIL) 200 mg tablet 60 tablet 2 Sig: TAKE 1 TABLET BY MOUTH TWICE A DAY Authorizing Provider: ZULEMA MCLEAN MD * Telephone Encounter - La Nena Waterman LPN - 07/24/2025 4:23 PM EST Images from the original note were not included. Most recent Rheumatology visit: 06/22/2025 (with Zulema Mclean) Last Bone Density on file: None on file Rheumatology Care Team: None on file Recent Office Visits - This Specialty 06/22/2025 Fibromyalgia Rheumatology Zulema Mclean MD 12/28/2024 Inflammatory arthritis Rheumatology Zulema Mclean MD 05/30/2024 Inflammatory arthritis Rheumatology Zulema Mclean MD Upcoming Rheumatology Appointments - Next 365 Days Visit Type Date Time Department [facility] 12/21/2025 2:20 PM [facility] Last Ophthalmology Check for Plaquenil [...] Plan of Treatment DateTypeDepartmentCare Team (Latest Contact Info)Ujropyjbcbf86/13/2026 1:20 PM [facility]AppHal[facility] [place] [address] [place] [address] Benign neoplasm of meninges (HCC) [D32.9]10/09/2025 1:00 PM [facility] [address] [place] [address] Renée De La O, MARILEE.FIRE LIEUTENANT [address] [facility] [address] [place] [address] 6 Month Follow Up12/21/2025 2:20 PM EDTOffice Visit Rheumatology [address] [place] [address] Zulema Mclean MD [address] [facility] [address] [place] [address] 6 mo follow updocumented as of this encounter Visit Diagnoses Diagnosis Inflammatory arthritis- Primary Unspecified inflammatory polyarthropathy documented in this encounter Care Teams Team MemberRelationshipSpecialtyStart DateEnd Date Jesus Camacho MD [address] [place] [address] PCP - GeneralFamily Medicine05/12/23 Jesus Camacho MD ReferringFamily Medicine01/14/21 Jesus Camacho MD [address] [place] [address] ReferringFamily Medicine05/12/23documented as of this encounter
--- OUTSIDE RECORDS SUMMARY | 2025-08-07 06:54 | XMS_ITS | Encounter Summary ---
Author Organization [facility] Address [facility] [place] [address] Care Team Providers Care Computer Information Systems Instructor Name Role Phone eJsus Camacho MD Unavailable [phone] Jesus Camacho MD Unavailable [phone] Jesus Camacho MD Primary Care Provider [phone] Source Comments In the event this information is protected by the Federal Confidentiality of Alcohol and Drug AbusePatient Records regulations: The Federal rules restrict any use of the information to criminally investigate or prosecute any alcohol or drug abuse patient.[facility] Encounter Details DateTypeDepartmentCare Team (Latest Contact Info)Tqfypkhrgoe01/18/2025 Patient Msg [facility] [address] [place] [address] Renée De La O, MARILEE.SALES OFFICE ASSISTANT [address] [facility] [address] [place] [address] Appointment Rescheduled Social History Tobacco UseTypesPacks/DayYears UsedDateSmoking Tobacco: FormerSmokeless Tobacco: Never Comments:Started 1994. Quit 2009. 1 ppd Alcohol UseStandard Drinks/WeekCommentsYes0 (1 standard drink = 0.6 oz pure alcohol)3-4 drinks on occasionPHQ-2AnswerDate RecordedPHQ-2 kgatc6735Area Deprivation IndexAnswerDate RecordedNational Score (1-100), lower number is lower bvlv254806/01/2023State Score (1-10), lower number is lower howq31406/01/2023 Data from: https://www.neighborhoodatlas.[facility].edu/. Last address used for slwsllzlugm[address]06/01/[address]23CommentsNoSex and Gender InformationValueDate RecordedSex Assigned at UlezlOaircy73/14/2021 11:09 PM EDT Legal OcvDjonjh11/02/2012 8:01 AM ESTGender NylcbwtnYmsjau10/14/2021 11:09 PM EDTSexual FvbmetupjzoMujjgwvb03/14/2021 11:09 PM EDTdocumented as of this encounter Plan of Treatment DateTypeDepartmentCare Team (Latest Contact Info)Zgkckmyoxiu42/13/2026 1:20 PM [facility] [address] [place] [address] Benign neoplasm of meninges (HCC) [D32.9]10/09/2025 1:00 PM [facility] [address] [place] [address] Renée De La O, QUARTER DOPER.SALES OFFICE ASSISTANT [address] [facility] [address] [place] [address] 6 Month Follow Up12/21/2025 2:20 PM EDTOffice Visit Rheumatology [address] [place] [address] Zulema Mclean MD [address] [facility] [address] [place], [place] [address] 6 mo follow updocumented as of this encounter Visit Diagnoses Not on filedocumented in this encounter Care Teams Team MemberRelationshipSpecialtyStart DateEnd Date Jesus Camacho MD [address] [place] [address] [facility] - [facility]/12/23 Jesus Camacho MD [facility]erring[facility] Medicine01/14/21 Jesus Camacho MD [address] [place] [address] [facility]erringNorth[facility]05/12/23documented as of this encounter
[2025-08-07 07:12] VITALS: BP 112/64; PULSE 82; TEMP 36.5; O2SAT 98
[2025-08-07 07:53] VITALS: BP 159/83; BP 162/86; PULSE 70; PULSE 89; O2SAT 100; O2SAT 99
[2025-08-07] MEDS: LIDOCAINE HCL 2% 400 MG/20 ML MDV 6 ML INJ (08:02)
[2025-08-07] MEDS: DEXAMETHASONE SOD PHOS 10 MG/ML VIAL INJ (08:03)
[2025-08-07] MEDS: BUPIVACAINE HCL 0.25% PF 25 MG/10 ML VIAL 2 ML INJ (08:03)
--- NOTE | 2025-08-07 08:09 | P.ON_ITS ---
Date of procedure: 08/07/25 Pre-op diagnosis: Pain due to cervical spondylosis without myelopathy Post-op diagnosis: same as pre-op Procedure: Procedure: Right C4-5, 5-6 radiofrequency ablation Medications: Bupivacaine 0.25% 2cc, lidocaine 2% 4cc, dexamethasone 10mg The patient was seen and examined in the preoperative holding area.? The site was marked.? Written informed consent was obtained and placed on the chart.? The patient was brought to the medical procedure unit and placed in the prone position.? A timeout was completed verifying correct patient, procedure, positioning, and special requirements.? The skin overlying the target points, the designated medial branch, was prepped and draped in the usual sterile fashion.? The target point was achieved with a 20-gauge 15 cm with a 10 mm curved active tip radiofrequency cannula under direct fluoroscopic visualization .? The needle was inserted at level C4 on the right side. Needle tip position was confirmed with lateral fluoroscopic position.? Motor stimulation was carried out at 2 Hz up to 5 volts with the absence of extremity activity.? This was repeated at level C5, 6 on right side.?? Sensory stimulation was carried out.? Concordant pain was realized at the above- mentioned sites.? Then radiofrequency lesioning was carried out times 90 seconds at 80 degrees times 2 lesions at each level.? The radiofrequency probe was removed prior to cannula removal.? The above-mentioned injectate was placed in 1 mL increments.? The needle was removed.? Insertion sites were covered.? The patient was taken to the postoperative recovery area and monitored for an appropriate length of time before being found suitable for discharge in the company of a responsible adult. Anesthesia: Local Surgeon: Ridge Hollingsworth Pathology: none sent Condition: stable Disposition: no change
== END 2025-08-07 08:07 | disposition home or self-care (01) ==
PROVIDERS: PCP Family Medicine; Visit Provider Anesthesiology
DX: M47.812 Spondylosis without myelopathy or radiculopathy, cervical region (principal); M54.2 Cervicalgia; G89.29 Other chronic pain; E11.8 Type 2 diabetes mellitus with unspecified complications; Z79.84 Long term (current) use of oral hypoglycemic drugs
CPT/HCPCS: 36415; 64633; 64634; 82948; J0665; J1100

== ENCOUNTER 2025-09-11 16:50 | Outpatient (OUT) | payer MEDICARE, MEDICAID, SELFPAY ==
--- OUTSIDE RECORDS SUMMARY | 2025-08-30 04:10 | XMS_ITS ---
Author Organization [facility] [place] Address [address] [place] [address] Care Team Providers Care Credit Resolution Representative Name Role Phone Eric Camacho Primary Care Provider [phone] Problems Problem Type SNOMED Code ICD Code Onset Dates Problem Status W/U Status Risk Notes Problem Anemia (593240081) Anemia (D64.9) Activeconfirmed Encounters Encounter Location Date Provider Diagnosis [facility] [address] [place] [address] 08/30/2025 Eric Camacho Anemia D64.9 Assessments Encounter Date Diagnosis (ICD Code) Assessment Notes Treatment Notes Treatment Clinical Notes Section Notes 08/30/2025 Anemia (ICD-10 - D64.9) Plan Of Treatment Pending Test Test Name Order Date CBC AUTO DIFF 08/30/2025 FERRITIN 08/30/2025 IRON 08/30/2025 Progress Notes * Kourtney NOVAK LDOB:[birth year] (49 yo F)Acc No.[id number]:08/30/2025 Patient:?Kourtney NOVAK :1975???Age:49 Y???Sex:FemalePhone:[phone] Address:[address] [place] [address], [id number] Subjective: * Chief Complaints: * * Medical History: * Surgical History: * Hospitalization/Major Diagno stic Procedure: * Medications: Objective: * Vitals: * Physical Examination: ??? Assessment: * Assessment: 1.?Anemia - D64.9 (Primary)??? Plan: * Treatment: ?LAB: CBC AUTO DIFF ?LAB: FERRITIN ?LAB: IRON * Procedure Codes: * true * Date:?Generated for Printing/Faxing/eTransmitting on:?09/11/2025 07:58 AM EST
--- OUTSIDE RECORDS SUMMARY | 2025-09-11 16:53 | XMS_ITS | Encounter Summary ---
Author Organization [facility] Address [address] [place] [address] Care Team Providers Care Trench Digger Helper Name Role Phone Jesus Camacho MD Primary Care Provider [phone] Encounter Details DateTypeDepartmentCare Team (Latest Contact Info)Bkxocxklqzm93/26/2025Orders Only [facility] External Department Unsolicited Ash Greene MD [address] [address] Social History Tobacco UseTypesPacks/DayYears UsedDateSmoking Tobacco: FormerCigarettes Comments:>10 years since las t smoked Alcohol UseStandard Drinks/WeekCommentsYes0 (1 standard drink = 0.6 oz pure alcohol)caffeine: stackersCommentsUnknownSex and Gender InformationValue Date RecordedSex Assigned at BirthNot on fileLegal ZbhExnuvl46/15/2023 8:26 PM EDTGender IdentityNot on fileSexual OrientationNot on filedocumented as of this encounter Plan of Treatment DateTypeDepartmentCare Team (Latest Contact Info)Iqoypywhctq11/26/2026 2:40 PM ESTOffice Visit [facility] [address] [phone] Ash Greene MD [address] [address] documented as of this encounter Procedures Procedure NamePriorityDate/TimeAssociated DiagnosisCommentsCBC (INCLUDES DIFF/PLT)Jygrggk1509/08/2025 12:49 PM EST IMMUNOGLOBULIN PQvsyzcs54/26/2025 12:49 PM EST IMMUNOGLOBULIN TIxbpnak16/26/2025 12:49 PM EST IMMUNOGLOBULIN DZiqettn02/26/2025 12:49 PM EST documented in this encounter Results * IgM (09/08/2025 12:49 PM EST)ComponentValueRef RangeTest MethodAnalysis Time Performed AtPathologist SignatureIMMUNOGLOBULIN M, QN, [id number] - 217 mg/dL [facility]PSpecimen (Source)Anatomical Location / LateralityCollection Method / VolumeCollection TimeReceived Time09/08/2025 12:49 PM EST09/08/2025 Narrative [facility] - 09/09/2025 8:35 AM EST Performed at: [address] [place] [address] ??[id number] Field Marketing Representative: Maxim Daniel PhD, Phone: ??[phone] Authorizing ProviderResult TypeResult StatusTodd E [employer] BLOOD ORDERABLESFinal ResultPerforming OrganizationAddressCity/State/ZIP CodePhone Number [facility] * IgA (09/08/2025 12:49 PM EST)ComponentValueRef RangeTest MethodAnalysis Time Performed AtPathologist SignatureIMMUNOGLOBULIN A, QN, [id number] - 352 mg/dL [facility]pecimen (Source)Anatomical Location / LateralityCollection Method / VolumeCollection TimeReceived Time09/08/2025 12:49 PM EST09/08/2025 Narrative [facility] - 09/09/2025 8:35 AM EST Performed at: [address] ??[id number] Field Marketing Representative: Maxim Daniel PhD, Phone: ??[phone] Authorizing ProviderResult TypeResult StatusTodd E Rambasek MDLAB BLOOD ORDERABLESFinal ResultPerforming OrganizationAddressCity/State/ZIP CodePhone Number [facility] * IgG (09/08/2025 12:49 PM EST)ComponentValueRef RangeTest MethodAnalysis Time Performed AtPathologist SignatureIMMUNOGLOBULIN G, QN, [id number] - 1,602 mg/dLLABCORPSpecimen (Source)Anatomical Location / LateralityCollection Method / VolumeCollection TimeReceived Time09/08/2025 12:49 PM EST09/08/2025 Narrative [facility] - 09/09/2025 8:35 AM EST Performed at: 01 - [facility] [address] ??[id number] Field Marketing Representative: Maxim Daniel PhD, Phone: ??[phone] Authorizing ProviderResult TypeResult StatusTodd E Rambasek MDLAB BLOOD ORDERABLESFinal ResultPerforming OrganizationAddressCity/State/ZIP CodePhone Number [facility] * CBC and differential (09/08/2025 12:49 PM EST)ComponentValueRef RangeTest MethodAnalysis TimePerformed AtPathologist SignatureWBC8.13.4 - 10.8 x10E3/uL [facility]ABCORPRBC4.453.77 - 5.28 x10E6/rDIIJIWZBWhq95.911.1 - 15.9 g/qORHONXVDOus35.3 34.0 - 46.6 %NGADUFOMRG3650 - 97 fVBTCAOCZQEE24.026.6 - 33.0 yhKQLPYWUCECY54.0 31.5 - 35.7 g/rYOAYCTHXCNV91.211.7 - 15.4 %WGHJHMLMlfvqsbyx966115 - 450 x10E3/wKJVYZJULDuvwyljozjp48Uny Estab. %TKQUWPYDsoand83Hlm Estab. %[facility] Awwfmnema1Frj Estab. %VWPYHSYQfx8Xyr Estab. %TEXTDFPLmndg2Ubd Estab. %[facility] Neutrophils Abs4.61.4 - 7.0 x10E3/uLLABCORPLymphs Abs2.60.7 - 3.1 x10E3/uL [facility]PMonocytesAbs0.80.1 - 0.9 x10E3/uLLABC[facility]PEos Abs0.10.0 - 0.4 x10E3/uL [facility]PBaso Abs0.00.0 - 0.2 x10E3/uLLABCORPImmature Hhwgpkymqkcp6Die Estab. % [facility]PImmature Grans Abs0.00.0 - 0.1 x10E3/uLL[facility]PSpecimen (Source) Anatomical Location / LateralityCollection Method / VolumeCollection Time Received Time09/08/2025 12:49 PM EST09/08/2025 Narrative [facility] - 09/08/2025 6:07 PM EST Performed at: 01 - [facility] [address], [place], [place] ??[id number] Field Marketing Representative: Angelito Andres MD, Phone: ??[phone] Authorizing ProviderResult TypeResult StatusTodd E Rambasek MDLAB BLOOD ORDERABLESFinal ResultPerforming OrganizationAddressCity/State/ZIP CodePhone Number [facility] documented in this encounter Visit Diagnoses Not on filedocumented in this encounter Care Teams Team MemberRelationshipSpecialtyStart DateEnd Jesus Camacho MD [address] [place] [address] PCP - GeneralFamily Medicine03/12/23documented as of this encounter
--- OUTSIDE RECORDS SUMMARY | 2025-09-11 16:53 | XMS_ITS | Clinical Summary ---
Author Organization [facility] Address [address] [facility] [place] [address] Care Team Providers Care Phy Therapist Name Role Phone Unavailable Primary Care Provider Unavailabl e Source Comments The following information is NOT included in Care Everywhere downloads:Psychiatric notes, ECG results, Cardiac Rehab notes, Pulmonary Function notes, data from SmartForms (includes but not limited toPregnancy data,audiograms, eye exams, pre-surgical evaluation notes, well-child exam data).[facility] Active Problems ProblemNoted DateDiagnosed DateCorneal edema due to wearing of contact lenses 11/18/2004 Social History Tobacco UseTypesPacks/DayYears UsedDateSmoking Tobacco: Never Assessed CommentsUnknownSex and Gender InformationValueDate RecordedSex Assigned at Not on fileLegal NmwSwvupd60/04/2012 12:01 PM ESTGender IdentityNot on file Sexual OrientationNot on file Plan of Treatment Health MaintenanceDue DateLast HmwqCquwebqlFkbxnuhpcmf77/22/1978HIV Test 1992Hepatitis C Ecdcsmal56/22/1996Tdap Pfpkaas2011/05/1995Hepatitis A (HAV) Vaccine (optional start 19+ years)1996Hepatitis B (HBV) Vaccine (1 of 3 - 19+ 3-dose series)1996Tetanus (Td or Tdap) Muwfsne7011/05/1996Pap Smear 11/05/19981868Wujlvbtdtwu96/22/2018CRC Xtiqzhvhm81/22/4466Rutcbkmrpgp63/22/2023 Cologuard (Stool DNA)2022FIT2022OVID-19 Vaccine ( - 2024- season)2025Influenza Vaccine (#1)2025Shingles (RZV) Vaccine (1 of 2) 2027Pneumococcal Vaccine(s)Aged OutNo longer eligible based on patient's age to complete this topic Insurance
--- OUTSIDE RECORDS SUMMARY | 2025-09-11 16:53 | XMS_ITS | Clinical Summary ---
Author Organization [facility] Address [address] [place] [address] Phone Care Team Providers Care Package Delivery Driver Name Role Phone Unavailable Primary Care Provider Unavailabl e Encounters DateTypeDepartmentCare AzqlBqtdwfqicnp96/03/2025Scanned Document [facility] [address] [place] [phone] Scanning, Generic Provider from Last 3 Months Social History Tobacco UseTypesPacks/DayYears UsedDateSmoking Tobacco: Never Assessed CommentsUnknownSex and Gender InformationValueDate RecordedSex Assigned at Not on fileLegal XamYylvxa73/25/2022 4:19 PM ESTGender IdentityNot on fileSexual OrientationNot on file Plan of Treatment Health MaintenanceDue DateLast DoneCommentsCT Jqgkdzvkwyda23/22/1978Colonoscopy 1977Colorectal Cancer Xwvpyffvz95/22/1978FIT-DNA (Cologuard)1977FIT 1977HIV Gmeclnxmh81/22/1978Lipid Panel1977 7627Mfzmkzpuuhmdv08/22/1978 Welcome to Medicare Visit1977MMR Vaccines (1 of 1 - Standard series) 1978Hepatitis C Rejbpfsuz80/22/1996Hepatitis B Vaccines (1 of 3 - 19+ 3- dose series)1996Cervical Cancer Nqttplykx21/22/1999HPV/Afzmnb7911/05/1998Pap Smear1998DTaP/Tdap/Td Vaccines (1 - Tdap)11/05/19990975Dzizmmrlp48/22/2018 COVID-19 Vaccine (1 - 2024- season)2025Influenza Vaccine (#1)2025 Zoster Vaccines (1 of 2)2027HIB VaccinesAged OutNo longer eligible based on patient's age to complete this topicHPV VaccinesAged OutNo longer eligible based on patient's age to complete this topicHepatitis A VaccinesAged OutNo longer eligible based on patient's age to complete this topicIPV VaccinesAged OutNo longer eligible based on patient's age to complete this topicMeningococcal VaccineAged OutNo longer eligible based on patient's age to complete this topic Pneumococcal Vaccine: Pediatrics and At-Risk Adult PatientsAged OutNo longer eligible based on patient's age to complete this topicRotavirus VaccinesAged Out No longer eligible based on patient's age to complete this topic Procedures Procedure NamePriorityDate/TimeAssociated DiagnosisCommentsECHOCARDIOGRAM 07/17/2025 from Last 3 Months Results * Echocardiogram (07/17/2025) Narrative 07/17/2025 Ordered by an unspecified provider. Authorizing ProviderResult TypeResult StatusGeneric Provider ScanningCV ECHO PROCEDURESFinal Result from Last 3 Months Insurance
--- OUTSIDE RECORDS SUMMARY | 2025-09-11 16:53 | XMS_ITS | Patient Health Record ---
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 (18110807) Other cervical disc displacement at C6-C7 level (M50.223) ActiveconfirmedProblemDisplacement of cervical intervertebral disc without myelopathy (95118592)Other cervical disc displacement at C5-C6 level (M50.222) ActiveconfirmedProblemDegeneration of lumbosacral intervertebral disc (53634283) Other intervertebral disc degeneration, lumbosacral region (M51.37)Active confirmedProblemDisplacement of lumbar intervertebral disc without myelopathy (62280305)Other intervertebral disc displacement, 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) ActiveconfirmedProblemSpinal stenosis of lumbar region (65256412)Spinal stenosis, lumbosacral region (M48.07)ActiveconfirmedProblemSpinal stenosis in cervical region (56444754)Spinal stenosis, cervical region (M48.02)Active confirmedProblemCervical radiculopathy (08297348)Radiculopathy, cervical region (M54.12)Activeconfirmed Plan Of Treatment Pending Test Test Name Order Date Lumbar spine, 4v flex ext - 68311 2023 Cervical spine,ap,lat,flex,ext - 24205 0 02/19/2024 SFS - Lumbar Spine PT [...] Date Coverage End Date [place] [address] [place] [place] [address] [id number] ARON PICHARDOelf - patient is the insuredIll[place] Dept of MedicaidP [address] [place] [id number], MANDIESelf - patient is the [id number] 2024
--- OUTSIDE RECORDS SUMMARY | 2025-09-11 16:53 | XMS_ITS | Clinical Summary ---
Author Organization [facility] Address [address] [place] [address] Care Team Providers Care Biztalk Administrator Name Role Phone Jesus Camacho MD Primary Care Provider [phone] Allergies No known active allergies Medications MedicationSigDispense QuantityRefillsLast FilledStart DateEnd DateStatus Brexpiprazole (Rexulti) 2 MG tablet TAKE 1 TABLET BY MOUTH ONCE DAILY Oral for 30Active nezjpceqev-dnbbuqrcgesjr-yimiqggh 50-325-40 MG tablet TAKE 1 TABLET BY [...] solution INHALE ONE VIAL ONCE DAILY PER KDJFYLACC41/01/2023ctive diclofenac (Voltaren) 75 MG EC tablet Take [...] USING NEBULIZER 4 TIMES A DAY03/10/2023ctive Drug [employer] Unilet Lancets 33G misc USE ONCE DAILY03/10/2023ctive lisinopril 10 MG tablet Take 10 mg by mouth in the morning.03/09/2023ctive ondansetron (Zofran) 4 MG tablet TAKE 1 TABLET BY MOUTH EVERY 6 HOURS NEEDED FOR NAUSEA AND ZQAHMUYN74/03/2023 Active pregabalin (Lyrica) 50 MG capsule Take 50 mg by mouth in the morning and 50 mg before bedtime.06/19/2022ctive promethazine (Phenergan) 25 MG tablet Take 25 mg by mouth every 8 (eight) hours if needed.02/17/2023ctive tiZANidine (Zanaflex) 4 MG tablet TAKE 2 TABLETS BY MOUTH DAILY AT ZHFYEFV6104/11/2022ctive doxepin (SINEquan) 10 MG capsule Take 10 [...] by mouth every 12 (twelve) hours if zzgpqq1405/26/2024ctive Myrbetriq 25 MG 24 hr tablet TAKE [...] on right side03/25/2023loating 3DM type 2 without nienvjtdgzq34/11/5860Wxpxcgpmuslt76/11/2023Myopia of both eyes03/24/2023Nuclear senile tneebcrw12/11/2023Open angle with borderline findings, low risk, evhbsmpxw27/11/2023Otitis umbyjan5403/24/2023resbyopia 03/24/2023 Encounters DateTypeDepartmentCare TyibEttfllogduj24/26/2025Orders Only [facility] External Department Unsolicited Ash Greene MD 08/07/2025 2:40 PM ESTOffice Visit [facility] [address] [place] [address] Ash Greene MD Recurrent sinus infections (Primary Dx)08/07/2025amboo flowsheet [facility] [address] [place] [phone] Ash Greene MD 08/07/20251113Nzlaos22/21/8309Bixgax30/27/2025 2:20 PM EDTOffice Visit [facility] [address] [place] [address] Ash Greene MD Recurrent sinus infections (Primary Dx); Obstructive sleep apnea07/10/2025Orders Only [facility] External Department Unsolicited Ash Greene MD 07/10/2025amboo flowsheet [facility] [address] [place] [address] Ash Greene MD 07/10/20252154Jgdmkf95/21/2025Travelfrom Last 3 Months Immunizations ImmunizationAdministration DatesNext DueHep A, Adult02/02/2019Influenza, Yizzhoeppuw90/10/2017Influenza, injectable, MDCK, preservative free, eqqsjtxiivoc67/05/2022,07/04/2020Influenza, injectable, quadrivalent, preservative free07/12/2021,08/30/2014Pneumococcal Polysaccharide PPSV23 08/07/2025Td (adult), 5 Lf tetanus toxoid, preservative free, ynexwupb90/20/2021 Tdap110/07/2024 Family History Medical HistoryRelationNameCommentsliver failureFatherRelationNameStatusComments BrotherAliveFatherDeceasedMotherAlive Social History Tobacco UseTypesPacks/DayYears UsedDateSmoking Tobacco: FormerCigarettes Tobacco Cessation:Counseling Given: Not Answered Comments:>10 years since last smoked Alcohol UseStandard Drinks/WeekCommentsYes0 (1 standard drink = 0.6 oz pure alcohol)caffeine: stackersCommentsUnknownSex and Gender InformationValue Date RecordedSex Assigned at BirthNot on fileLegal IzjWbkjtf33/15/2023 8:26 PM EDTGender IdentityNot on fileSexual OrientationNot on file Last Filed Vital Signs Vital SignReadingTime TakenCommentsBlood Nqtslrqb545/9009 5:46 PM EDT Ikbaq2957 5:46 PM FMGDlvbzclgrxo87.1 ??C (98.7 ??F)06/05/2025 5:46 PM EDTRespiratory Cbga311006/05/2025 5:46 PM EDTOxygen Qjfeepcvod51%06/05/2025 5:46 PM EDTInhaled Oxygen Concentration--Svjomx215 kg (236 lb)08/07/2025 2:41 PM EST Sszwko294.1 cm (5' 5 )03/25/2023 10:35 AM EDTBody Mass Index39.27003/25/2023 10:35 AM EDT Plan of Treatment DateTypeDepartmentCare Team (Latest Contact Info)Cnhyrapwvqa92/26/2026 2:40 PM ESTOffice Visit [facility] [address] [place] [phone] Ash Greene MD [address] [place] [address] Health MaintenanceDue DateLast DoneCommentsCT Jxdzuowmzwqq62/22/1978Colonoscopy 1977Colorectal Cancer Vuqdgmzwi44/22/1978FIT-DNA1977FIT1977 FOBT1977 2877Ufqrqgixiuywt30/22/1978Pap Smear1998Cervical Cancer Lkxddrobq81/22/2008HPV/Kwxzoo9111/05/20075843Cqkicelsm92/22/2018Diabetes: Hemoglobin J9OZhwxkstberlt54/04/2025Influenza QghqeajMbhwxjdpc09/19/2025, 06/18/2022, 07/12/2021, Additional history existsPneumococcal Vaccine: Pediatrics (0 to 5 Years) and At-Risk Patients (6 to 64 Years)Aged Out08/07/2025No longer eligible based on patient's age to complete this topic Procedures Procedure NamePriorityDate/TimeAssociated DiagnosisCommentsIMMUNOGLOBULIN M Ihpjfup0309/08/2025 12:49 PM EST IMMUNOGLOBULIN QVszkoni38/26/2025 12:49 PM EST IMMUNOGLOBULIN GLvrpkmw04/26/2025 12:49 PM EST CBC (INCLUDES DIFF/PLT)Tqdibpa3209/08/2025 12:49 PM EST IMMUNOGLOBULIN YBirskbp88/27/2025 3:43 PM EDT DIPHTHERIA / TETANUS ANTIBODY HUVBJJxguhxl25/27/2025 3:43 PM EDT PNEUMOCOCCAL AB (23 SEROTYPE)Ysetrsr9407/10/2025 3:43 PM EDT IMMUNOGLOBULIN MUyogysi31/27/2025 3:43 PM EDT IMMUNOGLOBULIN LPsvzrio63/27/2025 3:43 PM EDT IMMUNOGLOBULIN PMmppwqx47/27/2025 3:43 PM EDT HYPERCOAG PANEL ZCWEBETvfiatp64/27/2025 3:43 PM EDT CBC (INCLUDES DIFF/PLT)Nmxftap8607/10/2025 3:43 PM EDT from Last 3 Months Results * CBC and differential (09/08/2025 12:49 PM EST) Only the most recent of2 resultswithin the time period is included. ComponentValueRef RangeTest MethodAnalysis TimePerformed AtPathologist Signature WBC8.13.4 - 10.8 x10E3/uLLABCORPRBC4.453.77 - 5.28 x10E6/rCZYLKWPEHrz15.911.1 - 15.9 g/sQELOFZFWYob65.334.0 - 46.6 %RYQYZPYOJC4583 - 97 eCSEKGEXJKWR30.026.6 - 33.0 vuXCWZEAKHQJG77.031.5 - 35.7 g/cUTQAEDVXXTP02.211.7 - 15.4 %[facility] Pgoxhpnmj935230 - 450 x10E3/sDPKZOMVARrcxgylgypw75Mfp Estab. %WARPCMPOdpumz11Ozr Estab. %DQTQCDNHzfwwfpfs9Ucn Estab. %TBADSMHKkh3Keb Estab. %FCBKKXPYfslu7Slk Estab. %[facility]ORPNeutrophils Abs4.61.4 - 7.0 x10E3/uLLABCORPLymphs Abs2.60.7 - 3.1 x10E3/uLLABCORPMonocytesAbs0.80.1 - 0.9 x10E3/uLLABCORPEos Abs0.10.0 - 0.4 x10E3/uLLABC[facility]PBaso Abs0.00.0 - 0.2 x10E3/uLLABCORPImmature Ciyjedjaxamt2Yet Estab. %[facility]PImmature Grans Abs0.00.0 - 0.1 x10E3/u[facility]PSpecimen (Source) Anatomical Location / LateralityCollection Method / VolumeCollection Time Received Time09/08/2025 12:49 PM EST09/08/2025 Narrative [facility] - 09/08/2025 6:07 PM EST Performed at: [address], [address] ??[id number] Medical Psychotherapist: Angelito Andres MD, Phone: ??[phone] Authorizing ProviderResult TypeResult StatusTodd E Ramhaleigh VAN BLOOD ORDERABLESFinal ResultPerforming OrganizationAddressCity/State/[facility] CodePhone Number [facility] * IgA (09/08/2025 12:49 PM EST) Only the most recent of2 resultswithin the time period is included. ComponentValueRef RangeTest MethodAnalysis TimePerformed AtPathologist Signature IMMUNOGLOBULIN A, QN, [id number] - 352 mg/dLLABCORPSpecimen (Source)Anatomical Location / LateralityCollection Method / VolumeCollection TimeReceived Time 09/08/2025 12:49 PM EST09/08/2025 Narrative [facility] - 09/09/2025 8:35 AM EST Performed at: [address] ??[id number] Medical Psychotherapist: Maxim Daniel PhD, Phone: ??[phone] Authorizing ProviderResult TypeResult StatusTodd E Rambasek LAB BLOOD ORDERABLESFinal ResultPerforming OrganizationAddressCity/State/ZIP CodePhone Number [facility] * IgM (09/08/2025 12:49 PM EST) Only the most recent of2 resultswithin the time period is included. ComponentValueRef RangeTest MethodAnalysis TimePerformed AtPathologist Signature IMMUNOGLOBULIN M, QN, [id number] - 217 mg/dLLABCORPSpecimen (Source)Anatomical Location / LateralityCollection Method / VolumeCollection TimeReceived Time 09/08/2025 12:49 PM EST09/08/2025 Narrative [facility] - 09/09/2025 8:35 AM EST Performed at: [address] [place] [address] ??[id number] Medical Psychotherapist: Maxim Daniel PhD, Phone: ??[phone] Authorizing ProviderResult TypeResult StatusTodd E Almondy BLOOD ORDERABLESFinal ResultPerforming OrganizationAddressty/State/ZIP CodePhone Number [facility] * IgG (09/08/2025 12:49 PM EST) Only the most recent of2 resultswithin the time period is included. ComponentValueRef RangeTest MethodAnalysis TimePerformed AtPathologist Signature IMMUNOGLOBULIN G, QN, [id number] - 1,602 mg/dLLABCORPSpecimen (Source) Anatomical Location / LateralityCollection Method / VolumeCollection Time Received Time09/08/2025 12:49 PM EST09/08/2025 Narrative [facility] - 09/09/2025 8:35 AM EST Performed at: [address] ??[id number] Medical Psychotherapist: Maxim Daniel PhD, Phone: ??[phone] Authorizing ProviderResult TypeResult StatusTodd E RamConsolidated Credit Acquisitions BLOOD ORDERABLESFinal ResultPerforming OrganizationAddHaven Behavioral Hospital of Eastern Pennsylvaniaty/State/ZIP CodePhone Number [facility] * (ABNORMAL) PNEUMOCOCCAL AB [...] developed and its performance characteristics determined by [employer]. It has not been cleared or approved by the U.S. Food and Drug Administration. FLAG Interpretation: A = Abnormal, H = High, L = Low Specimen (Source)Anatomical Location / LateralityCollection Method / Volume Collection TimeReceived Time07/10/2025 3:43 PM EDT1 Narrative [facility] - 07/13/2025 8:35 AM EDT Performed at: 01 - [facility] [address] [place] [address], [facility] [address], [place] ??[id number] Medical Psychotherapist: DENICE Witt PhDBC, Phone: ??[phone] Authorizing ProviderResult TypeResult StatusTodd E Rambasek MDLAB BLOOD ORDERABLESFinal ResultPerforming OrganizationAddressCity/State/[facility] CodePhone Number [facility] * (ABNORMAL) Diphtheria / Tetanus Antibody Panel (07/10/2025 3:43 PM EDT) ComponentValueRef RangeTest MethodAnalysis TimePerformed AtPathologist SignatureTETANUS ANTITOXOID IGG AB1.19<0.10 IU/mLLABCORPComment: ? Interpretation: Non-Protective <0.10 Protective >=0.10 Results for this test are for research purposes only by the assay's plush weaver. ??The performance characteristics of this product have [...] 07/13/2025 8:35 AM EDT Performed at: - [facility] ??[id number] Medical Psychotherapist: Lila Cadena MD, Phone: ??[phone] Authorizing ProviderResult TypeResult StatusTodd E Rambasek MDLAB [...] 07/11/2025 8:35 AM EDT Performed at: - [facility] ??[id number] Medical Psychotherapist: Maxim Daniel PhD, Phone: ??[phone] Authorizing ProviderResult TypeResult StatusTodd E Rambasek MDLAB BLOOD ORDERABLESFinal ResultPerforming OrganizationAddressCity/State/ZIP CodePhone Number [facility] * IgE (07/10/2025 3:43 PM EDT)ComponentValueRef RangeTest MethodAnalysis Time Performed AtPathologist SignatureIMMUNOGLOBULIN E, [id number] - 495 IU/mLLABC[facility]P Specimen (Source)Anatomical Location / LateralityCollection Method / Volume Collection TimeReceived Time07/10/2025 3:43 PM EDT1 Narrative [facility] - 07/13/2025 8:35 AM EDT Performed at: - [facility] ??[id number] Medical Psychotherapist: Lila Cadena MD, Phone: ??[phone] Authorizing ProviderResult TypeResult StatusTodd E Rambasek MDLAB BLOOD ORDERABLESFinal ResultPerforming OrganizationAddressCity/State/ZIP CodePhone Number [facility] from Last 3 Months Insurance Care Teams Team MemberRelationshipSpecialtyStart Jesus Camacho MD [address] [place] [address] PCP - GeneralFamily Medicine03/12/23
--- OUTSIDE RECORDS SUMMARY | 2025-09-11 16:53 | XMS_ITS | Clinical Summary ---
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 Name Role Phone Jesus Camacho MD Unavailable [phone] Jesus Camacho MD Unavailable [phone] Jesus Camacho MD Primary Care Provider [phone] Allergies No known active allergies Medications MedicationSigDispense [...] MOUTH TWICE A DAY 60 tablet 5Active Active Problems ProblemNoted DateDiagnosed DateDizziness and ijeqwtfsq08/16/2025Meningioma 02/20/2025 Assessment & Plan (02/21/2025 12:31 PM [...] 8:03 AM EDT): Assessment: Controlled with dexilant Mlpxypqynfpdgi91/03/2025 Assessment & Plan (02/21/2025 12:34 PM EDT): Treating with home synthroid 50mcg qday Assessment & Plan (02/14/2025 8:03 AM EDT): Assessment: Controlled with levothyroxine Class 3 severe obesity due to excess calories with serious comorbidity and body mass index (BMI) of40.0 to 44.9 in adult02/14/2025 Assessment & Plan (02/21/2025 12:36 PM EDT): [facility] nutrition education Assessment & Plan (02/14/2025 8:19 AM EDT): Assessment: Body mass index is 40.98 kg/m??. Inflammatory tqxraqcdd27/03/2025 Assessment & Plan (02/14/2025 8:21 AM EDT): Assessment: Stable ON Plaquenil and prednisone as needed Follows with Dr. Villegas Rheumatology Intracranial xhgngdgsci01/18/2023hronic tension-type headache, intractable 3Anxiety Assessment & Plan [...] 15mg qday, resume metformin 500mg qday POD2 2/ MRI contrast CCD, SSI Assessment & Plan [...] rheumatology Resolved Problems ProblemNoted DateDiagnosed DateResolved DatePost-op pain/ Cerebral edema Assessment & Plan (02/21/2025 12:37 PM EDT): Clinically significant cerebral edema treating with decadron 8bid (SSI, PPI) with terminal operations supervisor taper plan off over 1 week At risk for Assessment & Plan (02/21/2025 12:38 PM EDT): Treating with periop keppra x 1 week Neoplasm causing mass effect and brain compression on adjacent structures Assessment & Plan (02/21/2025 12:39 PM EDT): R/t meningioma, noted on preop MRI See meningioma POC Ipqinycoxo64/03/2025 Encounters DateTypeDepartmentCare NqadXzohxwcinkb51/18/2025 Patient Msg [facility] [address] [id number] Renée De La O, TECHNICAL PRODUCT MANAGER.SPECIAL ED ASSISTANT Appointment Jfsmyqwmtwd63/09/2025Refill Rheumatology [address] [place] [address] Zulema Mclean MD Refill Lnnhcgb7007/06/2025 Get Medical Advice Rheumatology [id number] [place] [address] Zulema Mclean MD Ncqbpsbaf97/11/2025Refill Rheumatology [id number] [place] [address] Zulema Mclean MD Refill Ajpjyre7406/22/2025 2:20 PM EDTOffice Visit Rheumatology [address] [place] [address] Zulema Mclean MD Fibromyalgia (Primary Dx); Inflammatory arthritis; Encounter for medication vgckmpyale43/07/2025Travelfrom Last 3 Months Family History Medical HistoryRelationCommentsSeizuresBrotherRelationStatusCommentsBrotherAlive MotherAliveSon 1AliveSon 2Alive Social History Tobacco UseTypesPacks/DayYears UsedDateSmoking Tobacco: FormerSmokeless Tobacco: Never Tobacco Cessation:Counseling Given: Not Answered Comments:Started 1994. Quit 2009. 1 ppd Alcohol UseStandard Drinks/WeekCommentsYes0 (1 standard drink = 0.6 oz pure alcohol)3-4 drinks on occasionPHQ-2AnswerDate RecordedPHQ-2 oelyc4745Area Deprivation IndexAnswerDate RecordedNational Score (1-100), lower number is lower szab639406/01/2023State Score (1-10), lower number is lower djaq15006/01/2023 Data from: https://www.neighborhoodatlas.[facility].edu/. Last address used for eypfdlzruhw[address]CommentsNoSex and Gender InformationValueDate RecordedSex Assigned at KwuqrKmqgpa62/14/2021 11:09 PM EDT Legal VcvKzjnvk27/02/2012 8:01 AM ESTGender KugikfrxAtcntd55/14/2021 11:09 PM EDTSexual OyrejbefzyoPvrjvetc12/14/2021 11:09 PM EDT Last Filed Vital Signs Vital SignReadingTime TakenCommentsBlood Mzvwkkyg233/7710 2:23 PM EDT Tziya1771 2:23 PM PFWZdvvcttqpvc47.3 ??C (99.2 ??F)03/06/2025 10:11 AM EDTRespiratory Dnmh9786 12:03 PM EDTOxygen Dzcpanbtab87%03/15/2025 12:03 PM EDTInhaled Oxygen Concentration--Cageod531.4 kg (250 lb)06/22/2025 2:23 PM HMLCggbyq095.1 cm (5' 5 )06/22/2025 2:23 PM EDTBody Mass Index41.610 2:23 PM EDT Plan of Treatment DateTypeDepartmentCare Team (Latest Contact Info)Zgibnjjelpp71/13/2026 1:20 PM [facility]App[facility] [address] [place] [address] Benign neoplasm of meninges (HCC) [D32.9]10/09/2025 1:00 PM [facility] [address] [place] [address] Renée De La O APRN.SPECIAL ED ASSISTANT [address] [place] [address] 6 Month Follow Up12/21/2025 2:20 PM EDTOffice Visit Rheumatology [address] [place] [address] Zulema Mclean MD [address] [place], [place] [id number] 6 mo follow upHealth MaintenanceDue DateLast DoneCommentsDiabetic Foot Exam 1987Dilated Retinal Exam1987Urine Albumin:Creatinine Ratio1987 Annual PCP Team Chronic Disease Visit1995Depression Xkqflwjgk84/22/1996LDL Jozftqciqeu25/22/1996Hepatitis B Vaccine (1 of 3 - 19+ 3-dose series)1996 Pneumococcal Vaccine (1 of 2 - PCV)1996Cervical Cancer Ibkwceczk97/22/1999 Mammogram Votnslswc64/22/2018DTaP,Tdap,Td Vaccine (1 - Tdap)/ CT Rmmwgyvbhlfu78/22/2023ologuard (FIT-DNA)11/05/20229480Btgzbjzjsdh86/22/2023 Colorectal Cancer Udcbwxdue91/22/2023Fecal Occult Blood2022Sigmoidoscopy 2022Medicare Advantage Annual Wellness Visit5Covid-19 Vaccine ( season)505/, 01/02/2021Influenza Vaccine (#1) 510/, 06/18/2022, 07/12/2021, Additional history qriiwyFjW4A /12/2024HIV VommdertqHrlzhldnh92/24/2006Hepatitis C Screening Mwotfjeoq77/21/2021, 01/05/2006 Medical Devices ImplantedTypeAreaManufacturerDevice IdentifierShelf Expiration DateModel / Serial / LotPatch Duramatrix-Onlay Plus Collagen 2x2in Dural Regeneration Membrane - [id number] Implanted:Qty: 1 on 02/20/2025 by [facility]Patch Right: Head - CranialSTRYKER NEUR01/11/2027DMOP22 / / [id number] Bone 8 Hole Profile - [id number] Implanted:Qty: 1 on [facility]20/20[facility] CenterPlateRight: Head - Cranial STRY-HOWM [id number] / / Plate 3d Large Box Low Profile Titanium Bone 2x2 Hole 1.5mm Screw - [id number] Implanted:Qty: 1 on [facility]20/20[facility]Right: Head - Cranial STRY-HOWM [id number] / / Plate Low Profile Titanium 12mm Bone 2 Hole Bar 1.5mm Screw Nonsterile - [id number] Implanted:Qty: 2 on [facility]20/20[facility]Right: Head - Cranial STRY-HOWM [id number] / / Cover 10mm Medium Titanium Kathleen Hole Low Profile Tab 1.5mm Screws - [id number] Implanted:Qty: 1 on 02/20/2025 [facility] Center[facility]ateRight: Head - Cranial STRY-HOWM [id number] / / Screw Bone Cleves Neuro 3 4mm 1.5mm Self Drill Axial Stability Latex - [id number] Implanted:Qty: 11 [facility] - Cranial STRY-HOWM [id number] / / Cleves Neuro Axs Neuro Screw Disc Pre-Loaded 1.5mm X 4mm Implanted:Qty: 17 [facility]20/20[facility] Head - Cranial [id number] / / Procedures Procedure NamePriorityDate/TimeAssociated DiagnosisCommentsHEMOGLOBIN H8OLteltgm 02/15/2025 12:56 PM EDT Pre-op evaluation Type 2 diabetes mellitus without complication, without long-term current use of insulin (HCC) *HEP C FQWfylyhq16/21/2021 1:39 PM EDT Pain in joint, multiple sites HIV 1/2 COMBO WITH REFLEX TO OKQPRELMTYYBYYW63/24/2006 3:17 PM EDT from Last 3 Months or Most Recently Relevant to Health Maintenance Results * HEMOGLOBIN A1C (02/15/2025 12:56 PM EDT)ComponentValueRef RangeTest Method Analysis TimePerformed AtPathologist SignatureHemoglobin A1C5.44.3 - 5.6 % 02/16/2025 6:33 AM [facility] LABComment:[place] Diabetes Association guidelines indicate that patients with HgbA1c in the range 5.7-6.4% are at increased risk for development of diabetes, and intervention by lifestyle modification may be beneficial. HgbA1c greater or equal to 6.5% is considered diagnostic of diabetes.Estimated Average Glucose 108mg/dL02/16/2025 6:33 AM [facility] LABComment:eAG: (Estimated average glucose) is a calculated value from HgbA1c and is apprenticeship representative of the average blood glucose level in the last 2-3 month period.Specimen (Source)Anatomical Location / LateralityCollection Method / VolumeCollection TimeReceived TimeBloodBLOOD SPECIMEN / UnknownVenipuncture / Hohlnmr4202/15/2025 12:56 PM EDT02/15/2025 12:56 PM EDT Narrative Authorizing ProviderResult TypeResult StatusKajustin Martin APRN.CNPLABORATORY Final ResultPerforming OrganizationAddressCity/State/ZIP CodePhone Number [facility] [address] [place] [address], * HEP REMOTE PANEL BL (03/04/2021 1:39 PM EDT)ComponentValueRef RangeTest Method Analysis TimePerformed AtPathologist SignatureHep B Core Ab, TotalNegative Mzxyikoj73/21/2021 6:54 PM EDTCleveland Clinic LaboratoriesHep C Antibody IA OvuredbcJfzpefbg30/21/2021 6:55 PM EDTCleveland Clinic LaboratoriesHBsAg TeirxwziJafszgdp43/21/2021 6:54 PM EDTCleveland Clinic LaboratoriesHep B Surface Ab, XoatAqkuqehrLjeansav49/21/2021 6:55 PM EDTCHolzer Hospital LaboratoriesComment:NEGATIVESpecimen (Source)Anatomical Location / Laterality Collection Method / VolumeCollection TimeReceived XawjHxime07/21/2021 1:39 PM EDT03/04/2021 1:41 PM EDT Narrative Authorizing ProviderResult TypeResult StatusZulema Mclean MDLABORATORYFinal ResultPerforming OrganizationAddressCity/State/ZIP CodePhone Number [facility] [address] [place] [address] [facility] [address] [place] [address] * HIV AB 1&2 SCREEN (01/05/2006 3:17 PM EDT)ComponentValueRef RangeTest Method Analysis TimePerformed AtPathologist SignatureHIV 1 & 2 Ab (EIA)Non ReactiveNR [facility] LABComment: If results are indeterminate or [...] StatusWade CardORATORYFinal Result Performing OrganizationAddressCity/State/ZIP CodePhone Number [facility] [address] [place] [address] from Last 3 Months or Most Recently Relevant to Health Maintenance Insurance Care Teams Team MemberRelationshipSpecialtyStart DateEnd Jesus Camacho MD [address] [place] [address] PCP - GeneralFamily Medicine05/12/23 Jesus Camacho MD ReferringFamily Medicine01/14/21 Jesus Camacho MD [address] [place] [address] [facility]erring[facility]05/12/23
--- OUTSIDE RECORDS SUMMARY | 2025-09-11 16:53 | XMS_ITS | Patient Health Record ---
Author Organization [facility] in [place] Address [address] [place] [address] Care Team Providers Care Rapid Outsole Stitcher Name Role Phone Eric Camacho Primary Care Provider Allergies No Known Allergies Results Component Value Reference Range Notes VITAMIN D 25 [place] Reviewed date:02/02/2025 08:06:48 PM Interpretation: Performing Lab: Notes/Report: [facility] , Vitamin D 32.7 >100 ng/mL Potential Toxicity 30-100 ng/mL Vit D sufficient <20 ng/mL Vit D deficient 20-<30 ng/mL Vit D insufficient Performing Lab:see noteML - [facility] LBTSH Reviewed date:02/02/2025 08:06:48 PM Interpretation: Performing Lab: Notes/Report: [facility] ,Thyroid Stimulating Hormone2.6190.358-3.740 uIU/mLPerforming Lab:see noteML - [facility] LBT4 Reviewed date:02/02/2025 08:06:47 PM Interpretation: Performing Lab: Notes/Report: [facility] ,T4 Thyroxine9.204.80-13.90 ug/dLPerforming Lab:see noteML - [facility] LBPROF 14(COMP METB) Reviewed date:02/02/2025 08:06:47 PM Interpretation: Performing Lab: Notes/Report: [facility] ,Eyfuai737617-631 mmol/LPotassium4.53.5-5.1 mmol/JRmxiobcg24801-480 mmol/LCarbon Wggzuql53.321.0-32.0 mmol/LAnion Gap16.2Cxglmxo23430-818 mg/dLBlood Urea Zgjjycvt85.07.0-18.0 mg/dLCreatinine1.360.55-1.02 mg/dLEstimated GFR ( Tldxhmn65>=60 mL/min/1.73m 2Estimated GFR (Non- Ame42>=60 mL/min/1.73m 2 BUN Creatinine Ratio13.7Cgntukl5.98.5-10.1 mg/dLBilirubin Total0.30.2-1.0 mg/dL Aspartate Amino Rvtstiatqxt1954-61 U/LAlanine Sxebnltwzxnaidag6818-18 U/L Alkaline Hvayhcfkysq4359-302 U/LTotal Protein6.86.4-8.2 g/dLAlbumin Level3.83.4- 5.0 g/dLGlobulin3.0Albumin Globulin Ratio1.3Performing Lab:see noteML - [facility] LBIRON Reviewed date:02/02/2025 08:06:47 PM Interpretation: Performing Lab: Notes/Report: [facility] ,Iron43.050.0-170.0 ug/dLPerforming Lab:see noteML - [facility] LB FREE T3 Reviewed date:02/02/2025 08:06:47 PM Interpretation: Performing Lab: Notes/Report: [facility] ,Free T33.022.18-3.98 pg/mLPerforming Lab:see noteML - [facility] LB CBC AUTO DIFF Reviewed date:02/02/2025 08:06:47 PM Interpretation: Performing Lab: Notes/Report: [facility] ,White Blood Count8.34.0-11.0 10 3/uLRed Blood Count4.294.20-5.40 10 6/uL Idhcvdstsx11.912.0-16.0 g/hWMpowuuhjrh17.636.0-48.0 %Mean Corpuscular Uhastz35.3 81.0-99.0 fLMean Corpuscular Rccxylktbj59.126.7-34.0 pgMean Corpuscular HGB Conc 32.629.9-35.2 g/dLRed Cell Distribution Width13.011.0-15.0 %Platelet Fbddl856 150-450 10 3/uLMean Platelet Xpusbc85.09.5-13.5 fLNeutrophils Percent Auto55.7 43.0-75.0 %Lymphocytes Percent Auto32.220.5-60.0 %Monocytes Percent Auto9.71.7- 12.0 %Eosinophils Percent Auto1.30.9-7.0 %Basophils Percent Auto0.70.2-2.0 % Immature Granulocytes Pct Auto0.40.0-0.5 %Neutrophils Absolute Auto4.61.4-6.5 10 3/uLLymphocytes Absolute Auto2.71.2-3.8 10 3/uLMonocytes Absolute Auto0.80.3-0.8 10 3/uLEosinophils Absolute Auto0.10.0-0.7 10 3/uLBasophils Absolute Auto0.10.0- 0.1 10 3/uLImmature Granulocytes Abs Auto0.030.00-0.03 10 3/uLPerforming Lab:see noteML - [facility] LBMammogram Reviewed date:09/16/2024 02:53:56 PM Interpretation:undefined Performing Lab: Notes/Report: undefinedXR thoracic spine 2V Reviewed date:05/17/2025 06:08:33 PM Interpretation: Performing Lab: Notes/Report: Source Facility: [place] [address] XRay Report Signed Patient: DEON PICHARDO MR#: [id number] : 1975 Acct:[id number] Age/Sex: 49 / F ADM Date: 05/17/25 Loc: RAD Attending Dr: Chantal Starr NP Ordering Physician: Chantal Starr NP Date of Service: 05/17/25 Procedure(s): XR thoracic spine 2V Accession Number(s): [id number] cc: Chantal Starr NP; Jesus Camacho M.D. [place] [address] Patient Name: DEON PICHARDO MRN: [id number] date: 1975 Sex: F Assigned Patient Location: RAD Current Patient Location: RAD Accession/Order Number: [id number] Exam Date: 05/17/2025 14:05 Report Date: 05/17/2025 15:07 At the request of: CHANTAL TSARR NP Procedure: XR thoracic spine 2V THORACIC SPINE - - 2 views CLINICAL HISTORY: Thoracic Radiculopathy COMPARISON: None FINDINGS: Bones are grossly demineralized. Vertebral body heights appear maintained. Endplate degenerative changes. Mild scoliosis. Pedicles appear intact. XR/XR thoracic spine 2V IMPRESSION: MILD SCOLIOSIS WITH DEGENERATIVE CHANGE. NO ACUTE BONY PROCESS IS SEEN. Impression dictated by: Rainer Martinez Jr., D.OEstefany 05/17/2025 3:07 PM Dictation Location: [place] [address] Electronically authenticated by: [id number] Y Date: 05/17/2025 15:07 Dictated By: Rainer Martinez M.D. Signed By: 05/17/25 1510 DD/ 1507 TD/TT: Sales And Leasing Consultant:PROF LAURA Elias ([facility] [facility]) Reviewed date:02/08/2025 07:39:28 PM Interpretation: Performing Lab: Notes/Report: [facility] ,Qjwpwd770293-916 mmol/LPotassium4.33.5-5.1 mmol/TRfuyuoxd14773-125 mmol/LCarbon Qbhltfp70.921.0-32.0 mmol/LAnion Gap13.7Zddmbip9211-330 mg/dLBlood Urea Nitrogen 17.07.0-18.0 mg/dLCreatinine0.850.55-1.02 mg/dLEstimated GFR ( Vera>60 >=60 mL/min/1.73m 2Estimated GFR (Non- Kylah>60>=60 mL/min/1.73m 2BUN Creatinine Ratio20.8Pscuohm8.28.5-10.1 mg/dLPerforming Lab:see noteML - [facility] LB Reason For Referral No Information Medications Medication SIG (Take, Route, Frequency, Duration) Notes Start Date End Date Status levoFLOXacin 750 MG 1 tablet Orally Once a day; Duration: 10 days 5ActiveLubiprostone 24 MCGTAKE 1 CAPSULE BY MOUTH TWICE A DAY; Duration: 90ActiveGlycopyrrolate 1 MG1 tablet Orally Once a dayActiveIbuprofen 800 MG1 tablet with food or milk as needed Orally every 8 hrs; Duration: 25 days ActiveIpratropium-Albuterol 0.5-2.5 (3) MG/3MLUSE 1 VIAL INHALATION EVERY 6 HOURS NEEDED; Duration: 30ActiveLancets 33G -Use 1 lancet to check glucose once daily; Duration: 03/06/2023ctiveHYDROcodone-Acetaminophen 5-325 MG1 tablet as needed Orally every 6 hrs; Duration: 06/07/2025tive Levothyroxine Sodium 50 MCGTAKE 1 TABLET BY MOUTH EVERY DAY IN THE MORNING ON EMPTY STOMACH FOR 30 DAYS; Duration: ActiveLodine 400 MG1 tablet with food Orally Twice a dayActiveFarxiga 5 MGTAKE 1 TABLET BY MOUTH EVERY DAY; Duration: 54YccavzEnjnhweaxe-UNFZ-Ytkhyfti 50-325-40 MG1 capsule as needed Orally every 4 hrs; Duration: 7 08/28/2025tiveTamiflu 75 MG1 capsule Orally Twice a day; Duration: 08/31/2025tivelamoTRIgine 200 MGTAKE 3 TABLETS BY MOUTH ONCE DAILY; Duration: ActiveNebulizer Mask and Tubing-Adult - use daily with neb solution; Duration: 365 days DX j44.9 DX:j44.909ctiveLactulose 20 GM/30ML30 ml Orally Once a day - up to bid; Duration: 30 daysActivemetFORMIN HCl 500 mgTAKE 2 TABLETS BY MOUTH TWICE DAILY; Duration: 30ActiveMyrbetriq 50 MG1 tablet Orally Once a day; Duration: 30 days 06/22/2024ctiveAlbuterol Sulfate (2.5 MG/3ML) 0.083%3 mL as needed Inhalation every 6 hrs; Duration: 30 daysActiveBlood Glucose Monitor System w/DeviceUse Device to check glucose every day; Duration: 03/06/2023ctiveOndansetron HCl 4 MGTAKE 1 TABLET BY MOUTH EVERY 6 HOURS NEEDED FOR NAUSEA/VOMITING 30 DAYS; Duration: 30ActiveBlood Glucose Test -Use 1 strip In Vitro daily; Duration: 03/06/2023ctivePioglitazone HCl 15 MGTAKE 1 TABLET BY MOUTH EVERY DAY FOR 30 DAYS; Duration: 90ActiveBudesonide 1 MG/2ML1 mL Inhalation Once a day DX J44.9; Duration: 90 daysActivePlaquenil 200 MGas directed Orally bid ActiveCetirizine HCl 10 MG1 tablet Orally Once a day; Duration: 30 days 4ActiveDexlansoprazole 60 MGTAKE 1 CAPSULE BY MOUTH TWICE A DAY; Duration: 90ActiveDoxepin HCl 10 MGTAKE 1 CAPSULE BY MOUTH THREE TIMES A DAY FOR 30 DAYS; Duration: 90ActiveDULoxetine HCl 60 MGTAKE 1 CAPSULE BY MOUTH EVERY DAY Oral; Duration: 30 DaysActive Immunizations Vaccine Route Administration Date Status Comme nts Flu, Flucelvax (8347-7247) (39440) 6 mos +, single-dose syringe IM Intramuscular [...] alcohol in the p ast year? No Ivuzhi8BbadqqnqqjsglxAyxpigxvEPWKA-S (Standard) Question Answer Notes Did you have a drink containing alcohol in the p ast year? No Nmmkgn2CeumzyrluhkntqUndyupjj Problems Problem Type SNOMED Code ICD Code Onset Dates Problem Status W/U Status Risk Notes Problem Iron deficiency anemia (74626749 ) Iron deficiency anemia, unspecified (D50.9) ActiveconfirmedProblemHypothyroidism (58114658)Hypothyroidism, unspecified (E03.9)ActiveconfirmedProblemChronic obstructive pulmonary disease (37779549) Chronic obstructive pulmonary disease, unspecified (J44.9)ActiveconfirmedProblem Benign neoplasm of meninges (594282827)Benign neoplasm of meninges, unspecified (D32.9)ActiveconfirmedProblemNon-toxic single thyroid nodule (236593818)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)ActiveconfirmedProblemBrachial plexus disorder (7495048)Brachial plexus disorders (G54.0)ActiveconfirmedProblemDegeneration of cervical intervertebral disc (40720706)Other cervical disc degeneration, unspecified cervical region (M50.30)ActiveconfirmedProblemDegeneration of lumbar intervertebral disc (20295227)Other intervertebral disc degeneration, lumbar region (M51.36)ActiveconfirmedProblemFibromyalgia (633143744)Fibromyalgia (M79.7)ActiveconfirmedProblemRight upper quadrant pain (327575625)Right upper quadrant pain (R10.11)ActiveconfirmedProblemNausea (991757686)Nausea (R11.0) ActiveconfirmedProblemVomiting (872453105)Vomiting, unspecified (R11.10)Active confirmedProblemFatigue (47406665)Fatigue (R53.83)ActiveconfirmedProblem Hypertension (69028876)Hypertension (I10)ActiveconfirmedProblemCOPD - Chronic obstructive pulmonary disease (34929922)COPD (chronic obstructive pulmonary disease) (J44.9)ActiveconfirmedProblemGastroesophageal reflux disease (295306195)GERD (gastroesophageal reflux disease) (K21.9)ActiveconfirmedProblem Anemia (241506252)Anemia (D64.9)ActiveconfirmedProblemObstructive sleep apnea syndrome (17334765)MAREK (obstructive sleep apnea) (G47.33)ActiveconfirmedProblem Eczema (43736073)Eczema (L30.9)ActiveconfirmedProblemEpigastric pain (08991298) Epigastric abdominal pain (R10.13)ActiveconfirmedProblemVitamin D deficiency (25602551)Vitamin D deficiency (E55.9)ActiveconfirmedProblemDisorder of lumbar disc (894239511)Lumbar disc disease (M51.9)ActiveconfirmedProblemConstipation (74109153)Constipation (K59.00)ActiveconfirmedProblemWell adult (845361726)Well adult (Z00.00)ActiveconfirmedProblemSolitary nodule of lung (835987420)Lung nodule (R91.1)ActiveconfirmedProblemParesthesia (85513665)Paresthesia (R20.2) ActiveconfirmedProblemBenign neoplasm of cerebral meninges (87648383)Meningioma (D32.9)ActiveconfirmedProblemChest wall pain (761563475)Chest wall pain (R07.89) ActiveconfirmedProblemFibromyalgia (992287528)Fibromyalgia (M79.7)Active confirmedProblemTension headache (590690012)Tension headache (G44.209)Active confirmedProblemBursitis of left shoulder (713116094853292)Bursitis of shoulder, left (M75.52)ActiveconfirmedProblemExcessive sweating (02167251)Excessive sweating (R61)ActiveconfirmedProblemChronic obstructive pulmonary disease (36609192)Advanced COPD (J44.9)ActiveconfirmedProblemMixed anxiety and depressive disorder (959250658)Anxiety and depression (F41.9)Activeconfirmed ProblemAnkle edema (47453551)Ankle edema (M25.473)ActiveconfirmedProblemAbnormal PFTs (R94.2)ActiveconfirmedProblemIrritable bowel syndrome (33977807)Irritable bowel syndrome (IBS) (K58.9)ActiveconfirmedProblemType II diabetes mellitus without complication (507096804)Controlled type 2 diabetes mellitus (E11.9) ActiveconfirmedProblemObese class III (finding) (486751087)Obesity, class 3 (E66.813)Activeconfirmed Vital Signs Heart Rate 83 /min 03/20/2025 Zcpfzpur30 %03/20/2025lood pressure oqibvvthv92 mm Hg06/07/20251714Coajrt91.5 in 06/07/2025lood pressure hyktvjnx674 mm Hg06/07/20254355Tflfqj133.0 lbs06/07/2025MI 40.96 kg/m206/07/2025 Procedures Procedure Date Ordered Date Performed Result Body Sit e CARDIO Echocardiogram 05/25/2025 N/A Encounters Encounter Location Date Provider Diagnosis [facility] [address] [place] [address] 06/07/2025 Eric Hoy Chest wall pain R07. 89 [facility] [address] [place] [address] 03/20/2025 Eric Camacho Chronic obstructive pulmonary disease, unspecified J44.9 [facility] [address] [facility] [place] [address] 05/25/2025 Eric Camacho Well adult Z00.00 ; Vitamin D deficiency E55.9 ; Nontoxic single thyroid nodule E04.1 and Murmur R01.1 [facility] [address] [facility] [place] [address] 02/02/2025 Eric Camacho Benign neoplasm of meninges, unspecified D32.9 ; Obesity, class 3 E66.813 ; Chronic obstructive pulmonary disease, unspecified J44.9 ; Advanced COPD J44.9 and COPD (chronic obstructive pulmonary disease) J44.9 [facility] [address] [facility] [place] [address] 09/19/2024 Eric Camacho [facility] [facility] [place] [address] 11/14/2024Doug [facility] [place] [address]/31/2025Doug [facility]oyIron deficiency anemia, unspecified D50.[facility] [facility] [place] [address] Eric [facility] [facility] [place] [address] 02/02/2025Doug HoyAbnormal renal function N28.9[facility] [address] [facility] [place] [address]Doug [facility] [facility] [place] [address]Doug [facility] [facility] [place] [address] 02/14/2025Doug [facility] [place] [address]/01/2025Doug [facility] [place] [address]/01/2025Doug [facility] [facility] [place] [address]/03/2025Doug [facility] [facility] [place] [address]/04/2025Doug [facility] [facility] [place] [address]/ [facility] [facility] [place] [address]/Doug HoyIron deficiency anemia, unspecified D50.9[facility] [facility] [place] [address]/ [facility] [facility] [place] [address]/06/2025Doug [facility] [facility] [place] [address]/Doug [facility] [facility] [place] [address]/Doug [facility] [facility] [place] [address]/03/2025Doug [facility] [facility] [place] [address]/09/2024 [facility] [facility] [place] [address]/10/2024Doug HoyConstipation K59.00[facility] [address] [facility] [place] [address]/11/2024Doug [facility] [facility] [place] [address]/Doug Hoy Anemia D64.9[facility] [facility] [place] [address]/Doug [facility] [place] [address]/Doug HoyHypotension I95.9 Assessments Encounter Date Diagnosis (ICD Code) Assessment Notes Treatment Notes Treatment Clinical Notes Section Notes 02/02/2025 Benign neoplasm of meninges, uns pecified (ICD-10 - D32.9) 02/02/2025Obesity, class 3 (ICD-10 - E66.813)02/08/2025Hypotension (ICD-10 - I95.9)03/20/2025hronic obstructive pulmonary disease, unspecified (ICD-10 - J44.9)05/25/2025Well adult (ICD-10 - Z00.00)06/07/2025hest wall pain (ICD-10 - R07.89)12/12/2024Iron deficiency anemia, unspecified (ICD-10 - D50.9)02/02/2025 Abnormal renal function (ICD-10 - N28.9)05/28/2025Iron deficiency anemia, unspecified (ICD-10 - D50.9)08/15/2025onstipation (ICD-10 - K59.00)08/30/2025 Anemia (ICD-10 - D64.9)05/25/2025Vitamin D deficiency (ICD-10 - E55.9)05/25/2025 Nontoxic single thyroid nodule (ICD-10 - E04.1)02/02/2025hronic obstructive pulmonary disease, unspecified (ICD-10 - J44.9)5Advanced COPD (ICD-10 - J44.9)02/02/2025OPD (chronic obstructive pulmonary disease) (ICD-10 - J44.9) 05/25/2025Murmur (ICD-10 - R01.1) Plan Of Treatment Pending Test Test Name Order Date GLUCOSE - IN OFFICE 02/12/2023 CMP (COMPLETE METABOLIC PANEL) CMP (COMPLETE METABOLIC PANEL) HEMOGLOBIN A1C (GLYCO) 05/15/2023 HEMOGLOBIN A1C (GLYCO) 04/14/2024 HEMOGLOBIN A1C (GLYCO) 05/25/2025 IRON, TOTAL 05/25/2025 IRON, TOTAL 02/02/2025 IRON, TOTAL 04/14/2024 LIPID PANEL (CHOL/TRIG/HDL/LDL) 04/14/20 24 LIPID PANEL (CHOL/TRIG/HDL/LDL) 05/25/20 25 LIPID PANEL (CHOL/TRIG/HDL/LDL) 05/15/20 23 CBC WITH DIFF (EXP 07/2025) 05/15/2023 CBC WITH DIFF (EXP 07/2025) 04/14/2024 VITAMIN D, 25 LEVEL (TOTAL) 04/14/2024 [...] CBC AUTO DIFF 12/12/2024 CBC AUTO DIFF 08/30/2025 CBC AUTO DIFF 04/10/2023 FERRITIN 04/10/2023 FERRITIN 05/28/2025 FERRITIN 08/30/2025 FERRITIN 11/09/2023 FERRITIN 05/20/2023 FERRITIN 12/12/2024 IRON 12/12/2024 IRON 05/20/2023 IRON 11/09/2023 IRON 05/28/2025 IRON 08/30/2025 IRON 04/10/2023 MAGNESIUM 05/25/2025 PHOSPHORUS 05/25/2025 VIT B12 AND FOLATE 05/25/2025 VIT B12 AND FOLATE 04/14/2024 VITAMIN D 25 [place] 05/25/2025 CT CHEST WO CON 06/07/2025 MRI CSPINE WO CON 01/15/2024 MRI LSPINE WO CON 01/15/2024 US ABD 02/16/2023 US THYROID 05/25/2025 US THYROID 02/09/2024 XR DEXA BONE DENSITY 05/25/2025 THYROID PANEL (T4/TSH/FREE T3) 09/11/202 5 THYROID PANEL (T4/TSH/FREE T3) 5 THYROID [...] MEDIBLUE DUAL ADV PRIMARY MEDICARE [address] [place] [address] [id number] Malick Pichardoelf - patient is the [facility] [address] [place], [place] [id number], MandieSelf - patient is the insuredMED[facility] [address] [address] [place] [id number], MandieSelf - patient is the insured 2009 Medications Administered Medication Instructions Date of Administration Dosage Notes Dexamethasone, 4mg/mL mgDexamethasone, 4mg/mL mgKenalog-400 mg80 Ketorolac Dndimsobixwr63/03/672863 zi86Yoypkzhgb Sbukgkylxqnl79/24/022012 mg Orphenadrine Ngmgbcz67/03/175936 qu77Oiijjqacfxyu Lrhslzz74/24/911802 mg Promethazine, 25 mg5 mg25 Medical (General) History Medical History History ICD Code Tension headache G44.209 Abnormal PFTs R94.2 Ankle edema M25.473 Fibromyalgia M79.7 Epigastric abdominal pain R10.13 MAREK (obstructive sleep apnea) G47.33 Lung nodule R91.1 rectal bleeding Excessive fhicamkdA94XnabijvQ89Smqshychmk type 2 diabetes mehkmsxyQ43.9Lumbar disc hjjefleJ99.9Acid eiptcaS45.9Brachial plexus gfuesqjsyB30.0Chronic obstructive pulmonary disease, aeoigkxnrcbD11.8SrkzxowztvwcE12Oharnoztx bowel syndrome (IBS)K58.5UqeqteG82.7NxkzufwixkmJ76.2Anxiety and yapxfridlwM83.9 Surgical History Surgery Date(Month/Year) Appendectomy Cubital Tunnel, unwns3580Nblnum Tunnel x2 on right, x1 leftRt Radius core Decompression with Dr. Black rib removalRepair of bones in left arm d/t fractureLeft C4-5, 5-6 radiofrequency hxzviayw27/4/1923rssujkewhs70/09/38L9-H8 transforaminal epidural steroid injection04/24/2025Left C4-5, 5-6 radiofrequency mnbpsseo87/10/25
--- OUTSIDE RECORDS SUMMARY | 2025-09-11 16:59 | XMS_ITS | CCD ---
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 Analytics Name Role Phone PHYSICIAN, DEFAULT Unavailable Unavailable PHYSICIAN, DEFAULT Unavailable Unavailable Jesus Gonzalez MD Unavailable Beti Bowles Unavailable Elyssa Gomes Unavailable MD Jesus Gonzalez Primary Care Provider [phone] HUMAIRA Cummings Attending Provider [phone] MD Jesus Gonzalez Attending Provider MD Elyssa [...] DR JESUS GONZALEZ Consulting Unavailable DR JESUS GONZALZE Attending Unavailable SHAIKH Shauna MENDOSA Consulting Unavailable LIAT MARISCAL Consulting Unavailable DR JESUS GONZALEZ Admitting Unavailable DR JESUS GONZALEZ Primary Care Unavailable DR JESUS GONZALEZ Attending Unavailable Jesus Gonzalez MD Unavailable Russell Shields Unavailable MD Jesus Gonzalez Primary Care Provider [phone] MD Russell Shields Attending Provider MD Jesus Gonzalez Attending Provider Hank ([facility] MARILEE Platt Attending Provider Jesus Gonzalez MD Unavailable Jesus Gonzalez MD Primary Care Provider Jesus Gonzalez MD Unavailable Jesus Gonzalez MD Primary Care Provider Jesus Gonzalez MD Primary Care Provider MD Jesus Gonzalez Primary Care Provider MD Jesus Gonzalez Attending Provider MD Zulema Wood Attending Provider PINEDAFRANKLO F Referring Unavailable JESUS GONZLAEZ Primary Care Unavailable PINEDAFRANKLO F Referring Unavailable [...] Provider Unavailable Zulema Wood MD Attending Provider [phone] Alessia Broderick MD Attending Provider Jesus Gonzalez MD Attending Provider Jesus Gonzalez MD Primary Care Provider Elyssa Gomes MD Attending Provider Jesus Gonzalez MD Primary Care Provider Jesus Gonzalez MD Primary Care Provider Elyssa Gomes MD Attending Provider Jesus Gonzalez MD Attending Provider [facility] [place] [facility] [place] Unavailable UnavailJesus Ko MD Primary Care [...] Attending Unavailable Mayda Hendrix APRN Emergency Provider [facility] [place] [facility] [place] Unavailable Unavaila ERIK Loya Attending Unavailable [...] Care Provider Jesus Gonzalez MD Attending Provider Krishan Nuñez DO Attending Provider [phone] Mayda Hendrix APRN Emergency Provider Damaris RENAL TECHNICIAN-CChantal Attending Provider Elyssa Gomes MD Attending Provider [phone] Hoy, Jesus M Admitting Unavailable Hoy, Jesus [...] (Original)acetaminophen 325 mg oral tablet (16 sources)Start: 23-46-7248nhmb 2 tablets enteral route every four hours as neededacetaminophen (TYLENOL) 325 mg tablet 2 tablets by ORAL/FEEDING TUBE route every 4 hours as needed for pain. 02/23/2025 Activeacetaminophen 300 mg / butalbital 50 mg / caffeine 40 mg oral capsule (20 sources)Barbiturate, Central Nervous System Stimulant, MethylxanthineStart: 55-32-3096kewx 1 capsule by mouth every four to six hours as neededStart: 02-18-2021 End: 98-46-0231begy 1 tablet by mouth every four hours as needed, then take 4 tablets by mouth once daily as neededacetaminophen 325 mg-caffeine 40 mg- butalbital 50 mg (FIORICET) per tablet Take 1 tablet by mouth every four hours as needed Max 4 per day 0 02/18/2021 06/30/2023 Discontinued (Course of therapy completed)take 1 tablet by mouth four times daily as needed for headache cwirdtbodr-hjjjimffewtxq-iiowunyl 50-325-40 MG tablet TAKE 1 TABLET BY MOUTH FOUR TIMES DAILY NEEDED FOR HEADACHE Oral for 15 Active End: 61-50-4396aopylgrvrvpym 325 mg-caffeine 40 mg-butalbital 50 mg (FIORICET) per 15 mL oral liquidtake 1 capsule by mouth every four hoursFioricet 50-300-40 MG 1 capsule as needed Orally every 4 hrs ActiveComment on above:Take 1 tablet by mouth every four hours as needed Max 4 per dayacetaminophen 325 mg / HYDROcodone bitartrate 5 mg oral tablet (20 sources)Opioid AgonistStart: 46-96-2100iehr 1 tablet by mouth every four to six hours as needed for painalbuterol 0.83 mg/ml inhalation solution (20 sources)beta2-Adrenergic AgonistStart: 18-39-5524xoys 2.5 mg by inhalation four times daily [...] oral tablet (20 sources)Penicillin-class AntibacterialStart: 07-13-2024 End: 49-24-5968hfwg 1 tablet by mouth in the morningamoxicillin-clavulanate (Augmentin) 875-125 MG tablet Indications: Tooth infection Take 1 tablet (875 mg) by mouth in the morning and 1 tablet (875 mg) before bedtime. Do all this for 10 days. 20 tablet 07/13/2024 07/23/2024 ActiveStart: 05-16-2019 End: 21-96-6590nyax 1 tablet by mouth twice dailyAmoxicillin-Pot Clavulanate (Augmentin) 875-125 mg tablet Discontinued 1 TAB PO Twice daily 20 10 0September 2018 11:00pm September 11, 2020 6:25amStart: 10-09-2017 End: 08-70-3588sskt 1 tablet by mouth twice dailyAmoxicillin-Pot Clavulanate (Augmentin) 875-125 mg tablet Discontinued 1 TAB PO Twice daily 20 10 0January 2017 12:00am October 28, 2018 11:18amaspirin 325 mg oral tablet (20 sources)Platelet Aggregation Inhibitor, Nonsteroidal Anti-inflammatory Drug Start: 59-03-1326orne 1 tablet by mouth twice dailybenzonatate 100 mg oral capsule (20 sources)Non-narcotic AntitussiveStart: 99-30-3245rxlc 2 capsules by mouth every four hours as needed for coughStart: 39-86-7218umcl 200 mg by mouth every four hoursBenzonatate Active 200 MG PO Q4H October 10, 2021 1:00ambenzonatate (TESSALON PERLES ORAL) Activetake 1 capsule by mouth three times daily as needed Tessalon Perles 100 MG 1 capsule as needed Orally Three times a day Active benzonatate (TESSALON PERLES ORAL)Blood Glucose Monitoring Suppl (True Metrix Meter) w/Device kit (11 sources)Start: 28-97-8956Rgpyt Glucose Monitoring Suppl (True Metrix Meter) w/Device kit USE TO TEST BLOOD SUGAR EVERY DAY 03/10/2023 Activebrexpiprazole 2 mg oral tablet (20 sources)Atypical AntipsychoticStart: 10-28-2018 End: 64-65-6821zybu 1 tablet by mouth once dailyComment on above:Take 2 mg by mouth once daily.budesonide 0.5 mg/ml inhalation suspension (20 sources)CorticosteroidStart: 09-11-2020 End: 86-20-9941qpnt 1 mg by inhalation once daily in the morningtake 4 mL by inhalation four times dailyPulmicort 1 MG/2ML 4 ml Inhalation Four times a day ActiveComment on above:INHALE 1 (ONE) vial via NEBULIZER ONCE DAILYdapagliflozin 5 mg oral tablet (20 sources)Sodium-Glucose Cotransporter 2 InhibitorStart: 12-18-2018 End: 91-41-3658akav 1 tablet by mouth once dailyComment on above:Take 5 mg by mouth once daily.dexamethasone 2 mg oral tablet (12 sources)CorticosteroidStart: 02-22-2025 End: 28-77-3801ctbo 4 tablets by mouth twice daily at [...] AM EDT 02/22/2025 03/01/2025 ActiveStart: 01-04-2021 End: 37-41-6885rqas 1 tablet by mouth once dailydexAMETHasone (DECADRON) 6 mg tablet TAKE 1 TABLET BY MOUTH EVERY DAY FOR 6 DAYS 0 01/04/2021 06/26/2023 DiscontinuedComment on above:TAKE 1 TABLET BY MOUTH EVERY DAY FOR 6 DAYS dexlansoprazole 60 mg delayed release oral capsule (20 sources)Proton Pump InhibitorStart: 12-22-2019 End: 78-24-4039dsvc 1 capsule by mouth twice dailydexlansoprazole (Dexilant) [address] capsule 1 capsule 1 (one) time each day at the same time. ActiveComment on above:Take 1 capsule by mouth twice daily.Dexlansoprazole (Dexilant) 60 mg capsule,biphase delayed releas (20 sources)Start: 62-53-1425ycmv 1 capsule by mouth twice dailyDexlansoprazole (Dexilant) 60 mg capsule,biphase delayed releas Active 60 MG PO Twice daily 2021 12:00amStart: 08-59-1864tsqi 1 capsule by mouth twice daily Dexlansoprazole (Dexilant) 60 mg capsule,biphase delayed releas Active 60 MG PO Twice daily 2021 1:00amdiclofenac sodium 0.01 mg/mg topical gel (20 sources)Nonsteroidal Anti-inflammatory DrugStart: 60-70-6389Rpawr: 34-33-8328Sbjgmayfuu Sodium (Voltaren Arthritis Pain) 1 % gel Active 4 GM TOPICAL Four times daily February 01, 2025 12:00am apply to single knee, ankle, foot; for foot includes sole/toes/top of footStart: 01-27-2020 End: 76-18-4127kcwf 1 tablet by mouth in the morningdiclofenac (Voltaren) 75 MG EC tablet Take 75 mg by mouth in the morning and 75 mg before bedtime. 1 10/01/2021 ActiveComment on above:Take 75 mg by mouth twice daily.docusate sodium 50 mg / sennosides, skilled nursing 8.6 mg oral tablet (17 sources)Start: 32-56-9215fksu 1 tablet by mouth every twelve hours as needed senna-docusate (SENNA-S) 8.6-50 mg per tablet Take 1 tablet by mouth two times a day as needed for constipation. 100 tablet 02/22/2025 10:55 AM EDT 02/22/2025 Activetake 1 tablet by mouth every twelve hoursSenokot S 8.6-50 MG 1 tablet as needed Orally Twice a day Activedoxepin hydrochloride 10 mg oral capsule (20 sources)Tricyclic AntidepressantStart: 11-60-5291gkky 1 capsule by mouth three times daily as needed for anxietytake 1 capsule by mouth every twenty-four hoursDoxepin HCl 10 MG 1 capsule at bedtime Orally Once a day Activedoxycycline hyclate 100 mg oral tablet (20 sources)Tetracycline-class DrugStart: 63-96-3766vpnh 1 tablet by mouth twice dailyDULoxetine 30 mg delayed release oral capsule (20 sources)Serotonin and Norepinephrine Reuptake InhibitorStart: 32-53-2359kohb 1 capsule by mouth once dailyDULoxetine DR (CYMBALTA) 30 mg capsule Indications: Fibromyalgia TAKE 1 CAPSULE BY MOUTH EVERY DAY ALONG WITH THE 60MG CAPSULE TO EQUAL 90MG A DAY 90 capsule 2 05/17/2025 ActiveStart: 05-30-2024 End: 89-83-7858eayl 1 tablet by mouth once dailyDULoxetine (CYMBALTA) 30 mg capsule Indications: Fibromyalgia Take one tab along with the 60mg tab to equal 90mg po qd 30 capsule 6 10/10/2024 ActiveStart: 10-01-2023 End: 89-12-7760awzd 1 capsule by mouth once dailyDULoxetine (CYMBALTA) 60 mg capsule Indications: Fibromyalgia TAKE 1 CAPSULE BY MOUTH EVERY DAY 90 capsule 2 03/06/2025 ActiveStart: 11-03-2022 End: 94-71-1428cauw 1 capsule by mouth once dailyDULoxetine (CYMBALTA) 60 mg capsule Take 1 capsule by mouth once daily. 30 capsule 3 04/13/2023 ActiveStart: 09-29-2022 End: 44-78-0153jxid 1 capsule by mouth once dailyDULoxetine (CYMBALTA) 30 mg capsule Take 1 capsule by mouth once daily. 30 capsule 3 09/29/2022 06/26/2023 DiscontinuedComment on above:Take 1 capsule by mouth once daily.TAKE 1 CAPSULE BY MOUTH EVERY DAYetodolac 400 mg oral tablet (20 sources)Nonsteroidal Anti-inflammatory DrugStart: 09-09-2024 End: 68-79-7220zpan 1 tablet by mouth every twelve hours for arthritis and arthritisetodolac (LODINE) 400 mg tablet Indications: Inflammatory arthritis TAKE 1 TABLET BY MOUTH TWICE A DAY NEEDED 60 tablet 3 02/27/2025 ActiveStart: 09-28-2023 End: 37-62-5115qsuf 1 tablet by mouth twice daily as neededetodolac (LODINE) 400 mg tablet One tab po bid prn 60 tablet 3 01/27/2024 08/28/2024 Discontinued Comment on above:One tab po bid goa807 actuat formoterol fumarate 0.005 mg/actuat / mometasone furoate 0.2 mg/actuat metered dose inhaler (20 sources)Corticosteroid, beta2-Adrenergic AgonistStart: 45-55-1479clii 1 puff(s) by inhalation twice daily End: 33-45-2861kjroqwwlif-formoterol (DULERA) 100-5 mcg/actuation inhaler glycopyrrolate 1 mg oral tablet (20 sources)Start: 26-27-4145hdcw 2 tablets by mouth twice dailyglycopyrrolate (ROBINUL) 1 mg tablet Take 2 mg by mouth twice daily. 02/16/2021 ActiveStart: 10-28-2018 End: 60-99-8478kchq 1 tablet by mouth once dailyStart: 20-18-8132vbin 3 mg by mouth once dailyGlycopyrrolate Active 3 MG PO Daily October 28, 2018 1:00am Comment on above:Take 2 mg by mouth twice daily.hydroCHLOROthiazide 25 mg oral tablet (20 sources)Thiazide DiureticStart: 09-11-2020 End: 69-69-8077ordw 1 tablet by mouth once dailyComment on above:Take 25 mg by mouth once daily.hydroxychloroquine sulfate 200 mg oral tablet (20 sources)Antimalarial, Antirheumatic AgentStart: 07-04-2021 End: 36-83-8163ngfd 1 tablet by mouth twice dailyComment on above:Take 1 tablet by mouth twice daily.TAKE 1 TABLET BY MOUTH TWICE DAILYTake 1 tablet by mouth two times a day.ipratropium bromide 0.2 mg/ml inhalation solution (20 sources)AnticholinergicStart: 17-98-7014fcec 0.5 mg by inhalation every six hours as neededStart: 94-94-6130szba 0.5 mg by inhalation every six hours Ipratropium Tiona Active 0.5 MG INHALATION Q6H September 11, 2020 1:00amiv contrast (will be provided with radiology test) (2 sources)Start: 03-02-2025 End: 40-78-7685nvjfcz 1 dose intravenously onceiv contrast (will be [...] 1 each 03/02/2025 03/03/2025 ActiveStart: 01-19-2024 End: 23-81-5283bqvuph 1 dose intravenously once, then inject 1 [...] oral tablet (20 sources)Mood Stabilizer, Anti-epileptic AgentStart: 27-97-6693pghv 3 tablets by mouth once dailyStart: 15-73-7650rwyf 600 mg by mouth once dailyLamotrigine Active 600 MG PO Daily September 12, 2017 1:00amtake 1 tablet by mouth every twenty-four hourslamoTRIgine 200 MG 1 tablet on the tongue and allow to dissolve Orally Once a day ActiveComment on above:TAKE 3 TABLETS EVERY DAYlevothyroxine sodium 0.05 mg oral tablet (20 sources)l-ThyroxineStart: 65-45-2105iojbddzxldisc (Synthroid, Levoxyl) 50 MCG tablet 1 (one) time each day at the same time 05/17/2024 Activelisinopril 10 mg oral tablet (20 sources)Angiotensin Converting Enzyme InhibitorStart: 00-78-0912alpy 1 tablet by mouth once dailylubiprostone 0.024 mg oral capsule (20 sources)Chloride Channel ActivatorStart: 14-67-4987tdjf 1 capsule by mouth twice dailyStart: 24-24-3936jshz 1 capsule by mouth twice dailyLubiprostone (Amitiza) 24 mcg capsule Active 24 MCG PO Twice daily October 28, 2018 12:00amStart: 66-90-7670xkpp 1 capsule by mouth twice dailyLubiprostone (Amitiza) [...] hydrochloride 500 mg oral tablet (20 sources)BiguanideStart: 02-15-0593ftxw 2 tablets by mouth twice dailyStart: 57-50-8434htcu 1000 mg by mouth twice dailyMetformin Active 1000 MG PO Twice daily September 12, 2017 1:00ammetFORMIN (GLUCOPHAGE) 500 mg tablet Active methocarbamol 500 mg oral tablet (20 sources)Muscle RelaxantStart: 03-13-2025 End: 64-89-4939duet 1 tablet by mouth twice daily as neededmethocarbamol (ROBAXIN) 500 mg tablet Indications: Chronic daily headache TAKE 1 TABLET BY MOUTH TWICE A DAY NEEDED 45 tablet 2 05/18/2025 ActiveStart: 02-22-2025 End: 85-16-5054rneu 1 tablet by mouth four times daily as needed for pain methocarbamol (ROBAXIN) 500 mg tablet Indications: Chronic daily headache Take 1 tablet by mouth four times a day as needed (muscle spasm, jaw pain). 02/22/2025 03/13/2025 DiscontinuedStart: 10-03-2024 End: 88-37-8399xloi 1 tablet by mouth twice daily as neededmethocarbamol (ROBAXIN) 500 mg tablet Indications: Chronic daily headache TAKE 1 TABLET BY MOUTH TWICE A DAY NEEDED 45 tablet 2 12/29/2024 ActiveStart: 05-26-2024 methocarbamol (Robaxin) 500 MG tablet Take 500 mg by mouth every 12 (twelve) hours if needed 05/26/2024 ActiveStart: 02-05-2024 End: 59-81-9914mnrw 1 tablet by mouth twice daily as neededmethocarbamol (ROBAXIN) 500 mg tablet Indications: Chronic daily headache Take 1 tablet by mouth two times a day as needed. 45 tablet 2 05/26/2024 ActiveMetoprolol (14 sources)beta-Adrenergic BlockerToprol XL Gglvqr49 hr mirabegron 25 mg extended release oral tablet (20 sources)beta3-Adrenergic AgonistStart: 06-82-3109owbh 1 tablet by mouth once dailyMyrbetriq 25 MG 24 hr tablet TAKE 1 TABLET BY MOUTH EVERY DAY FOR 30 DAYS 06/23/2024 Activetake 50 mg by mouth once dailymirabegron (MYRBETRIQ) 50 mg Tb24 Take 50 mg by mouth once daily. Activemupirocin 0.02 mg/mg topical ointment (6 sources)RNA Synthetase Inhibitor AntibacterialStart: 02-14-2025 End: 34-94-1446yytxogjos (BACTROBAN) 2 % ointment two times a day for 5 days. Apply 0.5 inch with cotton swab (Q-tip) to each nostril in the morning and evening for 5 days prior to and including day of surgery. 22 g 02/14/2025 02/19/2025 Activenortriptyline 10 mg oral capsule (20 sources)Tricyclic AntidepressantStart: 45-76-8046ggdh 1 capsule by mouth once daily at bedtimenortriptyline (PAMELOR) 10 mg capsule Indications: Chronic daily headache Take 1 capsule by mouth daily at bedtime. 30 capsule 3 03/13/2025 ActiveStart: 01-06-2025 End: 50-98-4610orhwpomctytrv (PAMELOR) 10 mg capsule Indications: Chronic daily headache TAKE 1 CAPSULE AT BEDTIMEFOR 2 WEEKS, THEN 1 CAPSULE EVERY OTHER DAY FOR 1 WEEK THEN STOP 90 capsule 1 01/26/2025 02/14/2025Discontinued (Course of therapy completed)Start: 26-80-9370Bnoaebafauczo 25 mg capsule Active 25 MG PO November 25, 2023 12:00amStart: 06-26-2023 End: 05-81-2947Bujxmqb on above:Take 1 capsule by mouth daily at bedtime. 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 3 tablet 02/22/2025 10:55 AM EDT 02/22/2025 02/28/2025 ActiveStart: 10-09-2017 End: 73-39-8251xdwf 1 tablet by mouth four times daily as needed for pain Oxycodone 30 mg Tablet Discontinued 30 MG PO Four times daily as needed for Pain October 09, 201712:00am October 28, 2018 11:19amStart: 09-12-2017 End: 27-53-8133rqtt 1 tablet by mouth twice daily, then take 1 tablet by mouth every twelve hoursOxycodone (Oxycontin) 40 mg tablet extended release 12hr Discontinued 40 MG PO Twice daily 2016 12:00am October 28, 2018 11:19ampioglitazone 15 mg oral tablet (20 sources)Peroxisome Proliferator Receptor alpha Agonist, Peroxisome Proliferator Receptor gamma Agonist, ThiazolidinedioneStart: 60-13-9041lytb 1 tablet by mouth once dailyStart: 09-12-2017 End: 25-50-3781Mptbkxpwsmkj 15 mg tablet Discontinued September 12, 2017 12:00am October 09, 2017 9:47pmStart: 09-12-2017 End: 91-11-9976Rmqbgfzbrxvu 15 mg tablet Discontinued TABLET September 12, 2017 1:00am October 09, 2017 10:47pmpredniSONE 20 mg oral tablet (20 sources)Start: 03-19-9196ynxwvnIZZP (Deltasone) 20 MG tablet Indications: Rib pain on right side Take 3 tabs for 2 days, 2 tabs for 2 days, 1 tab for 2 days, 1/2 tab for 2 days then stop 13 tablet 06/05/2025 ActiveStart: 09-09-2024 End: 07-01-7890pmla 1-2 tablets by mouth once dailypredniSONE (DELTASONE) 5 mg tablet Indications: Inflammatory arthritis TAKE 1 TO 2 TABLETS BY MOUTHEVERY DAY 60 tablet 3 02/27/2025 ActiveStart: 12-11-2022 End: 91-39-7111pzra 1-2 tablets by mouth once dailypredniSONE (DELTASONE) 5 mg tablet TAKE 1 TO 2 TABLETS BY MOUTH EVERY DAY 60 tablet 3 03/25/2024 08/28/2024 DiscontinuedStart: 11-11-2019 End: 97-72-0191nfpr 2 tablets by mouth once dailyPrednisone 20 mg tablet Discontinued 40 MG PO Daily 10 5 0 November 11, 2019 12:00am September 11, 2020 6:28amStart: 11-11-2019 End: 99-73-8647ojyf 40 mg by mouth once dailyPrednisone Discontinued 40 MG PO Daily 10 5 November 11, 2019 1:00am September 11, 2020 7:28amStart: 12-18-2018 End: 37-15-4360zlpv 1 tablet by mouth once daily at [...] qdpregabalin 50 mg oral capsule (16 sources)Start: 44-39-9391ripm 1 capsule by mouth in the morningpregabalin (Lyrica) 50 MG capsule Take 50 mg by mouth in the morning and 50 mg before bedtime. 06/19/2022 Activetake 1 capsule by mouth every twenty-four hoursLyrica 100 MG 1 capsule Orally Once a day Not-Takingpromethazine hydrochloride 25 mg oral tablet (11 sources)PhenothiazineStart: 91-38-1942abri 1 tablet by mouth every eight hours as neededpromethazine (Phenergan) 25 MG tablet Take 25 mg by mouth every 8 (eight) hours if needed. 02/17/2023 ActiveraNITIdine 300 mg oral tablet (20 sources)Histamine-2 Receptor AntagonistStart: 88-70-3406xube 1 tablet by mouth once daily as neededroflumilast 0.5 mg oral tablet (20 sources)Phosphodiesterase 4 InhibitorStart: 09-12-2017 End: 14-59-1262rwwf 1 tablet by mouth once dailytake 1 tablet by mouth every twenty-four hoursDaliresp 500 MCG 1 tablet Orally Once a day Activesimvastatin 20 mg oral tablet (20 sources)HMG-CoA Reductase InhibitorStart: 34-22-4360oapr 1 tablet by mouth once dailyComment on above:Take 20 mg by mouth once daily.sulfamethoxazole 800 mg / trimethoprim 160 mg oral tablet (3 sources)Dihydrofolate Reductase Inhibitor Antibacterial, Sulfonamide AntimicrobialStart: 03-15-2025 End: 79-49-6601ettk 1 tablet by mouth twice dailysulfamethoxazole-trimethoprim (BACTRIM DS) 800-160 mg per tablet Take 1 tablet by mouth two times aday for 5 days. 10 tablet 03/20/2025 03/25/2025 ActivetiZANidine 4 mg oral tablet (20 sources)Central alpha-2 Adrenergic AgonistStart: 06-26-2023 End: 66-32-2501ljpu 1 tablet by mouth every eight hours as neededtiZANidine (ZANAFLEX) 4 mg tablet Indications: Chronic daily headache take 1 tablet by mouth every 8 hours as needed 60 tablet 3 02/02/2024 02/05/2024 Discontinued (Side Effects)Start: 91-42-0991oncd 2 tablets by mouth once daily at bedtime tiZANidine (Zanaflex) 4 MG tablet TAKE 2 TABLETS BY MOUTH DAILY AT BEDTIME 04/11/2022 ActiveComment on above:Take 1 tablet by mouth every 8 hours as needed.topiramate 50 mg oral tablet (20 sources)Start: 26-05-2810hgmn 1 tablet by mouth once dailytraMADol hydrochloride 50 mg oral tablet (5 sources)Opioid AgonistStart: 63-85-2928kuuw 1 tablet by mouth every four to six hours as needed for paintraMADol HCl 50 MG 1 tablet as needed for pain Orally every 4-6 hours for 7 days prn Jul, Activedivalproex sodium 500 mg delayed release oral tablet (11 sources)Mood Stabilizer, Anti-epileptic AgentStart: 55-25-0217ouoz 1 tablet by mouth in the morningdivalproex (Depakote) 500 MG EC tablet Take 500 mg by mouth in the morning and 500 mg before bedtime. 07/18/2022 Activevilazodone hydrochloride 40 mg oral tablet (20 sources)Start: 09-12-2017 End: 56-67-6936jpbv 1 tablet by mouth once dailyComment on above:Take 40 mg by mouth once daily.Water Pills - (18 sources)Water Pills - as directed Orally Active Completed/Discontinued Medications MedicationDrug Class(es)DatesSig (Normalized)Sig (Original)acetaminophen 325 mg / oxyCODONE hydrochloride 5 mg oral tablet (20 sources)Opioid AgonistStart: 09-18-2021 End: 13-22-3081wzjt 1 tablet by mouth every four to six hours as needed for pain Oxycodone-Acetaminophen (Percocet) 5-325 mg tablet Discontinued 1 TAB PO EVERY 4-6 HOURS as needed for pain 10 3 0 September 18, 2021 October 02, 2021 3:22am Acute appendicitis Unspecified acute appendicitisamylase 114351 unt / lipase 11981 unt / protease 60091 unt delayed release oral capsule (20 sources)Start: 09-12-2017 End: 16-61-7472vlka 84226-11007 capsules by mouth three times daily Btfbom-Sxvyepeq-Tjppvgu (Pork) (Creon) 24,000-76,000 -120,000 unit capsule,delayed release(DR/EC) Discontinued 1 TAB PO Three times daily September 12, 2017 12:00am October 28, 2018 11:18amazithromycin 500 mg oral tablet (20 sources)Macrolide AntimicrobialStart: 10-11-2017 End: 18-37-4230kkdv 1 tablet by mouth once dailyAzithromycin 500 mg tablet Discontinued 500 MG PO Daily 5 5 0 October 11, 2017 12:00am October 15, 2017 12:00am October 16, 2017 12:04amcanagliflozin 100 mg oral tablet (20 sources)Sodium-Glucose Cotransporter 2 InhibitorStart: 09-12-2017 End: 90-71-4527fvpo 1 tablet by mouth once dailyCanagliflozin 100 tablet Discontinued 100 MG PO Daily September 12, 2017 12:00am December 18, 2018 12:46pm carisoprodol 350 mg oral tablet (20 sources)Muscle RelaxantStart: 09-12-2017 End: 57-45-1438ywcm 1 tablet by mouth four times daily as needed for pain Carisoprodol 350 mg tablet Discontinued 350 MG PO Four times daily as needed for Pain September 12, 2017 12:00am October 28, 2018 11:18amcephalexin 500 mg oral tablet (20 sources)Cephalosporin AntibacterialStart: 09-18-2021 End: 47-49-6182vqli 1 tablet by mouth four times dailyCephalexin 500 mg tablet Discontinued 500 MG PO Four times daily 40 0 September 18, 2021 12:00am October 10, 2021 11:45amGel-Syn (20 sources)Start: 41-60-2826Ubw-Syn Feb, 2 mLStart: 79-70-9302Cwm-Syn Feb, 2 mLStart: 63-72-1640Lib-Syn Feb, 2 mLhydrOXYzine pamoate 25 mg oral capsule (20 sources)AntihistamineStart: 09-12-2017 End: 13-96-3425ofuc 1 capsule by mouth four times daily as needed for anxiety Hydroxyzine Pamoate 25 mg capsule Discontinued 25 MG PO Four times daily as needed for Anxiety September 12, 2017 12:00am September 11, 2020 6:26am ibuprofen 600 mg oral tablet (20 sources)Nonsteroidal Anti-inflammatory DrugStart: 09-18-2021 End: 75-40-0427adbw 4 tablets by mouth every twenty-four hours for painIbuprofen 600 mg tablet Discontinued 600 MG PO EVERY 4-6 HOURS as needed for pain 20 7 1 September 18, 2021 12:00am October 10, 2021 11:49am do not exceed 4 doses in a 24 hour periodStart: 20-80-8462nmfm 1 tablet by mouth every six hours as needed for paintake 1 tablet by mouth four times dailyibuprofen 800 MG tablet TAKE 1 TABLET FOUR TIMES DAILY Oral for 30 Active2 ml ketorolac tromethamine 30 mg/ml cartridge (8 sources)Nonsteroidal Anti-inflammatory Drug, Cyclooxygenase InhibitorStart: 06-05-2025 End: 75-85-681147 mg, Intramuscular, Once, On Thu06/05/25 at 1830, For 1 dose, Max daily dose: 120 mg. Max duration: 5 days totalStart: 06-05-2025 End: 78-08-858304 mg, Intramuscular, Once, On Thu06/05/25 at 1830, For 1 dose, Max daily dose: 120 mg. Max duration: 5 days totalStart: 06-05-2025 End: 14-08-7623bxvanblsn (Toradol) injection 60 mgStart: 06-05-2025 End: 57-63-7070qqouefodv (Toradol) injection 60 mgStart: 05-23-2025 End: 95-54-242460 mg, Intramuscular, Once, On Thu05/23/25 at 1400, For 1 dose, Max daily dose: 120 mg. Max duration: 5 days totalStart: 05-23-2025 End: 87-60-1560cksricrip (Toradol) injection 60 mgStart: 05-23-2025 End: 87-32-922250 mg, Intramuscular, Once, On Thu05/23/25 at 1400, For 1 dose, Max daily dose: 120 mg. Max duration: 5 days totalStart: 05-23-2025 End: 26-42-2172hgtmzgady (Toradol) injection 60 mglevETIRAcetam 1000 mg oral tablet (3 sources)Start: 02-22-2025 End: 68-55-0357ybjl 1 tablet by mouth twice dailylevETIRAcetam (KEPPRA) 1,000 mg tablet Take 1 tablet by mouth two times a day for 12 doses. 12 tablet 02/22/2025 10:55 AM EDT 02/22/2025 03/02/2025 Discontinued (Course of therapy completed) levoFLOXacin 500 mg oral tablet (10 sources)Quinolone AntimicrobialStart: 01-04-2021 End: 90-76-1777cfde 1 tablet by mouth once dailylevoFLOXacin (LEVAQUIN) 500 mg tablet Take 500 mg by mouth once daily. 0 01/04/2021 06/26/2023 Discontinued Comment on above:Take 500 mg by mouth once daily.lurasidone hydrochloride 120 mg oral tablet (20 sources)Atypical AntipsychoticStart: 09-12-2017 End: 31-59-2251zwsg 1 tablet by mouth once dailyLurasidone (Latuda) 120 mg tablet Discontinued 120 MG PO Daily September 12, 2017 12:00am 2018 11:18ammilnacipran hydrochloride 100 mg oral tablet (20 sources)Serotonin and Norepinephrine Reuptake InhibitorStart: 02-16-2021 End: 50-36-2307vgkb 1 tablet by mouth twice dailySAVELLA 100 mg tab Take 100 mg by mouth twice daily. 0 02/16/2021 06/30/2023 Discontinued (Course of therapy completed)Start: 62-78-3955pjll 1 tablet by mouth twice dailyComment on above: Take 100 mg by mouth twice daily.pantoprazole 40 mg delayed release oral tablet (20 sources)Proton Pump InhibitorStart: 09-12-2017 End: 88-14-0821jqvw 1 tablet by mouth twice dailyPantoprazole 40 tablet,delayed release (DR/EC) Discontinued 40 MG PO Twice daily September 12, 2017 12:00am September 11, 2020 6:28amphentermine hydrochloride 37.5 mg oral tablet (11 sources)Sympathomimetic Amine AnorecticStart: 01-25-2021 End: 95-88-7232gzdn 1 tablet by mouth once dailyPhentermine HCl 37.5 mg tablet Take 37.5 mg by mouth once daily. 0 01/25/2021 06/30/2023 Discontinued (Course of therapy completed)Comment on above:Take 37.5 mg by mouth once daily. sucralfate 1000 mg oral tablet (20 sources)Aluminum ComplexStart: 10-28-2018 End: 11-92-2648eqav 1 tablet by mouth at bedtimeSucralfate (Carafate) 1 gram tablet Discontinued 1 GM PO Before meals and at bedtime 60 0 October 02, 2021 12:00am October 10, 2021 11:59amCarafate 1 GM 1 tablet on an empty stomach Orally PRN ActiveTheraputic Injection (20 sources)Start: 43-25-6413Odvchkgutt Injection Jul, 168 UStart: 00-86-0138Dejrrwxjku Injection Jul, 380 mgtriamcinolone acetonide 40 mg/ml injectable suspension (20 sources)CorticosteroidStart: 46-09-7864Vndidba-40 January, 20 mgStart: 14-62-4864Nsrzfql-40 Sep, 30 mgStart: 71-05-1298Rgcjtri-40 Mar, 40 mgStart: 09-76-1290Cokemth -40 mg Nov, 40 mgStart: 75-81-3034Etvxfbu -40 mg Aug, 20 mgStart: 83-67-1445Puduvzy -40 mg Jul, 40 mg Start: 17-47-4655Uavtxfs -40 mg May, 20 mgStart: 51-91-1566Ysvvbzj -40 mg Mar, 40 mgStart: 97-06-0811Hliazeh -40 mg Nov, 40 mgStart: 24-50-0183Tojvjon -40 mg January, 40 mgStart: 25-69-3536Vdtsuca -40 mg Jun, 40 mgStart: 18-88-3716Gvatijp -40 mg Mar, 40 mgStart: 11-92-9038Enozrko -40 mg Nov, Problems Active Problems Problem ClassificationProblemDateDocumented DateEpisodic/ChronicAbdominal pain (20 sources)Upper abdominal pain; Translations: [Upper abdominal pain, unspecified]11-26-2337GwgyncfnYxrkysk disorders (20 sources)Anxiety; Translations: [Anxiety disorder, unspecified]Onset: 395066-86-3888UpuuaeoHyzeivzbbyqd and other appendiceal conditions (20 sources)Acute appendicitis; Translations: [Unspecified acute appendicitis] 58-67-3786WqvwtwbpKqhwkpdb (11 sources)Nuclear senile cataract; Translations: [Age-related nuclear cataract, unspecified eye]Onset: 135818-73-6949CsakbvmKvnitaz obstructive pulmonary disease and bronchiectasis (20 sources)Acute exacerbation of chronic obstructive airways disease; Translations: [Chronic obstructive lung disease]Onset: ChronicConditions associated with dizziness or vertigo (6 sources)Dizziness and giddiness; Translations: [Dizziness and giddiness] Onset: 931818-97-7110PdawkbftFajfxgifgloea and procreative management (4 sources)Encounter for surveillance of injectable contraceptive; Translations: [Encounter for Depo-Provera contraception]EpisodicDiabetes mellitus with complications (20 sources)Secondary diabetes mellitus; Translations: [Other specified diabetes mellitus with diabetic autonomic (poly)neuropathy]ChronicDiabetes mellitus without complication (20 sources)Diabetes mellitus type 2 without retinopathy; Translations: [Type 2 diabetes mellitus without complications]Onset: hronic Disorders of lipid metabolism (20 sources)Mixed hyperlipidemia; Translations: [Mixed hyperlipidemia]Onset: 582964-02-0926AwkkhvpFvkczcawf of teeth and jaw (2 sources)Infection of tooth; Translations: [Periapical abscess without sinus] 23-22-9099FuzcxnkfN Codes: Natural/environment (20 sources)Dog bite - wound; Translations: [Bitten by dog, initial encounter] 47-11-5010VondzsxgVsgtowqbea disorders (20 sources)Gastroesophageal reflux disease; Translations: [Gastro-esophageal reflux disease without esophagitis]Onset: 497522-00-4207NyhdyoiIkbcslcfb and duodenitis (19 sources)Chronic superficial gastritis; Translations: [Chronic superficial gastritis without bleeding]ChronicGastritis and duodenitis (20 sources)Gastritis; Translations: [Gastritis, unspecified, without bleeding] 91-12-1272NslmkhdyXjvmkohkmdnuhwzr hemorrhage (20 sources)Rectal hemorrhage; Translations: [Hemorrhage of anus and rectum] 30-44-8747NlcmigekBgdimtau (11 sources)Open angle with borderline findings, low risk, bilateral; Translations: [Open angle with borderlinefindings, low risk]Onset: 03-24-2023 12-91-1492DwfhbstBiipsenu; including migraine (20 sources)Intractable chronic tension headache; Translations: [Chronic tension-type headache, intractable]Onset: 422462-43-7645JpzamopDvbpimmy; including migraine (11 sources)Medication overuse headache; Translations: [Drug-induced headache, not elsewhere classified, not intractable]63-64-2691CxxrhtomErzykotc; including migraine (1 source)Headache; including migraine; Translations: [Chronic daily headache] Onset: 84-44-0786Sgeft valve disorders (1 source)Cardiac murmur, unspecified; Translations: [Cardiac murmur, unspecified]Onset: 39-62-3666MjbtwoeaEkwr disorders (1 source)Mood disorders; Translations: [Depression, unspecified depression type]Onset: 03-08-4491Mbrnie and vomiting (20 sources)Nausea; Translations: [Nausea]EpisodicNonspecific chest pain (1 source)Other chest pain; Translations: [Other chest pain]Onset: 06-19-2025 EpisodicOsteoarthritis (20 sources)Arthritis; Translations: [Unspecified osteoarthritis, unspecified site]Onset: 06-05-2021 Resolved: 97-88-2156RwrjnvoCnjyo aftercare (3 sources)Patient encounter status; Translations: [Encounter for therapeutic drug level monitoring]60-50-4886FwkbsyqrDdtpr aftercare (1 source)Surgical follow-up; Translations: [Encounter for follow-up examination after completed treatment for conditions other than malignant neoplasm] 64-81-2803KaykhckcVfboo and unspecified benign neoplasm (19 sources)Neoplasm of meninges; Translations: [Benign neoplasm of meninges, unspecified]Onset: 303253-99-5098RvnmjrzWathn and unspecified benign neoplasm (20 sources)Intracranial meningioma; Translations: [Benign neoplasm of cerebral meninges]Onset: 342771-26-8492JoaozewWwsdm and unspecified benign neoplasm (4 sources)Benign neoplasm of meninges; Translations: [Benign neoplasm of meninges, unspecified]61-17-1055JlycqozTabfh and unspecified benign neoplasm (3 sources)Benign neoplasm of meninges, unspecified; Translations: [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)]Onset: 95-87-1087Bigtuyz Other and unspecified benign neoplasm (1 source)Benign neoplasm of cerebral meninges; Translations: [Intracranial meningioma (HCC)]Onset: 71-29-3597RylytlzRzabe bone disease and musculoskeletal deformities (19 sources)Aseptic necrosis of carpal bone; Translations: [Other osteonecrosis of right carpus]ChronicOther bone disease and musculoskeletal deformities (19 sources)Kienbock's disease of adults; 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]ChronicOther bone disease and musculoskeletal deformities (20 sources)Osteochondritis of the carpal lunate; Translations: [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], right hand]56-81-5259BtaydldQblib bone disease and musculoskeletal deformities (19 sources)Progressive avascular necrosis of lunate; 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]ChronicOther bone disease and musculoskeletal deformities (20 sources)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], right hand; Translations: [Juvenile osteochondrosis of upper extremity]Onset: 06-18-2021 Resolved: 80-65-1225YruqvcoQuuau connective tissue disease (2 sources)Muscle pain; Translations: [Myalgia, unspecified site]EpisodicOther connective tissue disease (19 sources)Tendinitis of wrist; Translations: [Other enthesopathies, not elsewhere classified]EpisodicOther connective tissue disease (19 sources)Radial styloid tenosynovitis; Translations: [Radial styloid tenosynovitis [de Quervain]]EpisodicOther connective tissue disease (20 sources)Supraspinatus tear; Translations: [Unspecified rotator cuff tear or rupture of right shoulder, not specified as traumatic]77-78-2448QbvjekobHrxpx connective tissue disease (6 sources)Unspecified rotator cuff tear or rupture of right shoulder, not specified as traumatic; Translations: [Tear of right supraspinatus tendon M75.101]Onset: 09-22-2021 Resolved: 47-18-2456MoslxtlaUosnw connective tissue disease (1 source)Bicipital tendinitis, left shoulderEpisodicOther connective tissue disease (1 source)Other specified disorders of tendon, right shoulderEpisodicOther connective tissue disease (20 sources)Biceps tendinitis; Translations: [Bicipital tendinitis, unspecified shoulder]33-88-1395ZkblklykOvuxq connective tissue disease (3 sources)Bicipital tendinitis, unspecified shoulder; Translations: [Bicipital tenosynovitis]47-25-8003OowirsgzPakfg connective tissue disease (18 sources)Bursitis of left shoulder; Translations: [Bursitis of left shoulder] 38-83-0301PfwwxrgvFygjn connective tissue disease (5 sources)Bursitis of left shoulder; Translations: [Disorders of bursae and tendons in shoulder region, unspecified]58-32-7689JntwzcxgXcqei disorders of stomach and duodenum (20 sources)Disorder of function of stomach; Translations: [Disease of stomach and duodenum, unspecified]68-50-5267AuugwpqcIiuyj ear and sense organ disorders (11 sources)Otitis externa; Translations: [Unspecified otitis externa, unspecified ear]Onset: 750986-64-1204WqnlpowUpjkw endocrine disorders (19 sources)Disorder of pancreatic internal secretion; 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, unspecified]ChronicOther fractures (8 sources)Fracture of rib; Translations: [Fracture of one rib, unspecified side, initial encounter for closedfracture]97-86-5610BldgbvupCstqw fractures (1 source)Fracture of one rib, unspecified side, initial encounter for closed fracture; Translations: [Fracture of one rib, unspecified side, initial encounter for closed fracture]Onset: 47-09-1150TrhyrsiqUczzq gastrointestinal disorders (19 sources)Constipation; Translations: [Constipation, unspecified]EpisodicOther gastrointestinal disorders (1 source)Abdominal distension (gaseous)EpisodicOther gastrointestinal disorders (1 source)EructationEpisodicOther gastrointestinal disorders (1 source)Diarrhea, unspecifiedEpisodicOther gastrointestinal disorders (1 source)Constipation, unspecifiedEpisodicOther lower respiratory disease (1 source)Pleurodynia; Translations: [Pleurodynia]Onset: 07-62-9727MmvbeyjkToytv nervous system disorders (19 sources)Carpal tunnel syndrome; Translations: [Carpal tunnel syndrome, right upper limb]ChronicOther nervous system disorders (19 sources)Cubital tunnel syndrome; Translations: [Lesion of ulnar nerve, right upper limb]ChronicOther nervous system disorders (19 sources)Bilateral carpal tunnel syndrome; Translations: [Carpal tunnel syndrome, bilateral upper limbs]ChronicOther nervous system disorders (1 source)Carpal tunnel syndrome, right upper limbOnset: 08-12-2021 Resolved: 83-71-0505RjzvstmBqmat nervous system disorders (1 source)Mass lesion of brain; Translations: [Other specified disorders of brain]86-70-3774BqktqjzUnbqz nervous system disorders (1 source)Compression of brain; Translations: [Neoplasm causing mass effect and brain compression on adjacentstructures (HCC)]Onset: 75-75-7216HptamldYzwbe nervous system disorders (20 sources)Pain in limb; Translations: [Other acute postprocedural pain] 54-36-7541JwesdmtxDubnl non-traumatic joint disorders (1 source)Other specified arthritis, unspecified site; Translations: [Inflammatory arthritis]Onset: 61-98-3056ZscmorqJvkrx non-traumatic joint disorders (20 sources)Pain of right wrist; Translations: [Pain in right wrist]03-22-2025 EpisodicOther non-traumatic joint disorders (20 sources)Pain in right shoulder; Translations: [Acute pain of right shoulder] Onset: 06-05-2021 Resolved: 36-44-7352OphbliziRlnem non-traumatic joint disorders (16 sources)Pain in wrist; Translations: [Pain in right wrist]15-22-3310Cdsprlxn Other nutritional; endocrine; and metabolic disorders (20 sources)Body mass index 30+ - obesity; Translations: [Body mass index (BMI) 33.0-33.9, adult]ChronicOther nutritional; endocrine; and metabolic disorders (20 sources)Severe obesity; Translations: [Class 3 severe obesity due to excess calories with serious comorbidity and body mass index (BMI) of 40.0 to 44.9 in adult]Onset: 499509-59-3605FqnbcobKopht nutritional; endocrine; and metabolic disorders (4 sources)Body mass index (BMI) 40.0-44.9, adult; Translations: [Class 3 severe obesity due to excess calories with serious comorbidity and body mass index (BMI) of 40.0 to 44.9 in adult]Onset: 506754-34-7469RzmzpnpTfzxg upper respiratory infections (2 sources)Recurrent sinusitis; Translations: [Chronic sinusitis, unspecified] 78-65-4461HbndijvWpmomubn codes; unclassified (20 sources)Obstructive sleep apnea syndrome; Translations: [Obstructive sleep apnea (adult) (pediatric)]Onset: 539309-90-9963VhrstnmBfmvnopl codes; unclassified (1 source)Obstructive sleep apnea (adult) (pediatric); Translations: [MAREK (obstructive sleep apnea)]Onset: 29-20-9561JsvahubGgztcnnx codes; unclassified (2 sources)History of craniotomy; Translations: [Other specified postprocedural states]17-46-8061AgeioxruBvwqovdb codes; unclassified (1 source)Postprocedural state finding; Translations: [Other specified postprocedural states]21-24-2837GjnzbshyFxeu and subcutaneous tissue infections (20 sources)Cellulitis of forearm; Translations: [Cellulitis of unspecified part of limb]00-96-0738JihrfkfjYladajqldrm; intervertebral disc disorders; other back problems (1 source)Radiculopathy, thoracic region; Translations: [Radiculopathy, thoracic region]Onset: 73-46-5392OgqkbytzRnoiibu and strains (10 sources)Strain of muscle, fascia and tendon of other parts of biceps, right arm, initial encounter; Translations: [Strain of other muscles, fascia and tendons at shoulder and upper arm level, left arm, initial encounter]Onset: 06-05-2021 Resolved: 71-91-8087OvxixonyNegqpjt disorders (20 sources)Hypothyroidism; Translations: [Hypothyroidism, unspecified]Onset: 411555-97-9710SgvqlrkYjoutgfbhgah (1 source)Class 3 severe obesity due to [...] sources)Bilateral myopia of eyes; Translations: [Myopia, bilateral]Onset: 203044-76-3582BceyminrLmrcrlgnou and other anemia (1 source)Iron deficiency anemia, unspecified; Translations: [Iron deficiency anemia, unspecified]Onset: 88-61-0566BhaojvwuDfxm disorders (20 sources)Depressive disorder; Translations: [Depression] Resolved: 048127-95-5046ScvwrkjPqroqtzln of unspecified nature or uncertain behavior (17 sources)Neoplasm of brain; Translations: [Neoplasm of unspecified behavior of unspecified site]Onset: 02-21-2025 Resolved: 616809-86-2764KrcswwkpCcvfy aftercare (1 source)Encounter for follow-up examination after completed treatment for conditions other than malignant neoplasm; Translations: [Postop check]Onset: 06-04-0457JatfafldKrnuw aftercare (1 source)Encounter for therapeutic drug level monitoring; Translations: [Encounter for medication monitoring]Onset: 31-27-3517ZemptcpzCygdl connective tissue disease (1 source)Enthesopathy, unspecified; Translations: [Tendonitis M77.9]Onset: 06-05-2021 Resolved: 75-45-6415ImbwwkxoWqlvs connective tissue disease (2 sources)Radial styloid tenosynovitis [de Quervain]; Translations: [De Quervain's tenosynovitis, right M65.4]Onset: 06-05-2021 Resolved: 92-08-4590SsvqkigzAwqzr connective tissue disease (1 source)Synovitis and tenosynovitis, unspecified; Translations: [Tenosynovitis M65.9]Onset: 06-05-2021 Resolved: 78-39-2798InnxdfuxGhemw connective tissue disease (20 sources)Fibromyalgia; Translations: [Fibromyalgia]Onset: 59-48-5200Ynjyujyv Other connective tissue disease (1 source)Fibromyalgia; Translations: [Fibromyalgia]Onset: 69-08-3550Psrqthoz Other diseases of kidney and ureters (1 source)Disorder of kidney and ureter, unspecified; Translations: [Disorder of kidney and ureter, unspecified]Onset: 56-53-2434DyvmpfcoRsdvz gastrointestinal disorders (11 sources)Abdominal bloating; Translations: [Abdominal distension (gaseous)] Onset: 314373-54-1485VnmndrcaNktoj lower respiratory disease (13 sources)Rib pain; Translations: [Pleurodynia]Onset: 506218-54-0589 EpisodicOther nervous system disorders (16 sources)Cerebral edema; Translations: [Cerebral edema]Onset: 02-21-2025 Resolved: 134580-05-7532RsuptwaYqegx nervous system disorders (16 sources)Postoperative pain ; Translations: [Other acute postprocedural pain] Onset: 02-22-2025 Resolved: 818863-32-0662JkrtgqbbGygsr non-traumatic joint disorders (20 sources)Pain in left shoulder; Translations: [Acute pain of left shoulder] Onset: 01-20-2022 Resolved: 41-78-3498IccghohnGrtcb non-traumatic joint disorders (19 sources)Pain in right wrist; Translations: [Pain in joint, forearm]Onset: 01-24-2022 Resolved: 61-38-3370RlxymaxkDazom screening for suspected conditions (not mental disorders or infectious disease) (4 sources)Encounter for screening for dental disorders; Translations: [Encounter for screening mammogram for malignant neoplasm of breast]Onset: 405711-46-0060CzhvayyoOmoigmhw codes; unclassified (7 sources)Other specified postprocedural states; Translations: [S/P craniotomy] Onset: 11-20-2021 Resolved: 64-81-3064WcitairtTzvusgry codes; unclassified (16 sources)At risk of epileptic fits; Translations: [Other specified personal risk factors, not elsewhere classified]Onset: 02-21-2025 Resolved: 051408-94-0184LdpeiukuBagnnvnppdnt (1 source)Patient encounter agxukr81-18-3451Bomajdttaxhh (1 source)pa (chief complaint)Onset: 06-27-2025 Results Test NameValueInterpretationReference RangeFacilityECH echo transthoracicon 91-58-3523QXE echo transthoracicKETTERING HEALTH PRE[facility] [place] [address] [place] [address] Echocardiogram Signed Patient: Kourtney Novak MR#: [id number] : 1975 Acct:[id number] Age/Sex: 49 / F ADM Date: 07/17/25 Loc: Room: Type: [facility] Attending Dr: Jesus Gonzalez MD Ordering Provider: [...] [id number] Signed By: Kierra Waldrop MD 07/17/25 1505[facility] HospitalX-ray reportOrdered By: George Gray on 94-19-8840Uhnam reportKETTERING HEALTH [facility]BLE [facility] [address] [place] [address] XRay Report Signed Patient: Kourtney Novak MR#: [id number] : 1975 Acct:[id number] Age/Sex: 49 / F ADM Date: 5 [place]: [facility] [place]: Type: [facility] Attending Dr: Elyssa Gomes MD Copies to: [...] Gray M.D. 07/12/2025 4:59 PM Dictation Location: [place] [address] Transcribed By: [facility] 07/12/251658 Dictated By: George Gray DO 07/12/251654 Signed By: 07/12/251658 [facility]XR [facility] RT min 3V*on 18-92-9566OB wrist RT min 3V*[facility] [address] [place] [address] XRay Report Signed Patient: Kourtney Novak MR#: [id number] : 1975 Acct:[id number] Age/Sex: 49 / F ADM Date: 07/12/25 Loc: [facility] [place]: Type: [facility] Attending Dr: Elyssa Gmoes MD Copies to: Elyssa Gomes MD Ordering [...] Gray M.D. 07/12/2025 4:59 PM Dictation Location: [place] [address] Transcribed By: [facility] 07/12/251658 Dictated By: George Gray DO 07/12/251654 Signed By: 07/12/251658[facility] GroupUN[facility] Auto Differential panel (Bld)on 06-66-0798Qpamnioco (Bld) [#/Vol]0.1 10*3/uLNOMS HealthcareBasophils/100 WBC (Bld)1 %Not Estab.NOMS HealthcareEosinophils (Bld) [#/Vol]0.0 10*3/uLNOMS HealthcareEosinophils/100 WBC (Bld)0 %Not Estab.NOM HealthcareErythrocyte distribution width (RBC) [Ratio]13.3 %11.7 - 15.4 %NOMS HealthcareHematocrit (Bld) [Volume fraction]38.7 %34.0 - 46.6 %NOM HealthcareHemoglobin (Bld) [Mass/Vol]12.7 g/dL11.1 - 15.9 g/dLNOPR HealthcareImmature granulocytes (Bld) [#/Vol]0.1 10*3/uLNOMS HealthcareImmature granulocytes/100 WBC (Bld)1 %Not Estab.NOM HealthcareInterpretation and review of laboratory resultsAbnormalNOPR HealthcareLymphocytes (Bld) [#/Vol]1.8 10*3/uLNOMS HealthcareLymphocytes/100 WBC (Bld)19 %Not Estab.NOMSaint Alexius HospitalH (RBC) [Entitic mass]28.6 pg26.6 - 33.0 pgNOPR HealthcareHC (RBC) [Mass/Vol]32.8 g/dL31.5 - 35.7 g/dLNOPR Healthcare MCV (RBC) [Entitic vol]87 fL79 - 97 fLNOPR HealthcareMonocytes (Bld) [#/Vol]0.6 10*3/uLNOMS HealthcareMonocytes/100 WBC (Bld)6 %Not Estab.[facility] Healthcare Neutrophils (Bld) [#/Vol]7.2 10*3/uLHighNOMS HealthcareNeutrophils/100 WBC (Bld) 73 %Not Estab.NOM HealthcarePlatelets (Bld) [#/Vol]514 10*3/uLHighNOMS HealthcareRBC (Bld) [#/Vol]4.44 10*6/uLNOMS HealthcareWBC (Bld) [#/Vol]9.7 10*3/uLNOMS HealthcareHIV-2 antigenon 62-46-8462FLC 1+2 Ab+HIV1 p24 Ag IA Ql Non-ReactiveNon ReactiveNOPR HealthcareComment on above:HIV-1/HIV-2 antibodies and HIV-1 p24 antigen were NOT detected. There is no laboratory evidence of HIV infection. HIV Negative IgAon 75-02-4430AhA [Mass/Vol]232 mg/dL87 - 352 mg/dLNOPR HealthcareIgGon 59-22-2619TiN [Mass/Vol]594 mg/dL586 - 1602 mg/dLNOPR HealthcareIgMon 07-11-2025 IgM [Mass/Vol]108 mg/dL26 - 217 mg/dLCooper County Memorial HospitalNo Panel Informationon 59-54-4044Iwzsaudgg at: [address] [place] [phone] [employer]: Maxim Daniel PhD, Phone: [phone] Healthcare Magnetic resonance imaging reportOrdered By: Perry Milton on 70-20-5121Hhsmx reportKETTERING [facility] [place] [address] [place], [place] [id number] MRI Report Signed Patient: Kourtney Novak MR#: [id number] : 1975 Acct:[id number] Age/Sex: 49 / F ADM Date: 5 Loc: MR Room: Type: [facility] CLI Attending Dr: Chantal LAMBERT Copies to: FAUSTO Salvador~ Ordering Provider: FAUSTO Salvador Date of Service: 06/27/25 MR/MR thoracic spine wo con: M54.14 ([id number]) XR/XR pre/post mri xray: M54.14 MR thoracic [...] Milton M.D. 06/27/2025 11:26 PM Dictation Location: [place] [address] Transcribed By: [facility] 06/27/252325 Dictated By: Perry Milton II, MD 06/27/252320 Signed By: 06/27/252325 [facility] Work Phone: xr pre/post mri xrayon 83-88-7542NH pre/post mri xray [facility] [place] [address] MRI Report Signed Patient: Kourtney Novak MR#: [id number] : 1975 Acct:[id number] Age/Sex: 49 / F ADM Date: 06/27/25 Loc: Room: Type: [facility] Attending Dr: Chantal LAMBERT Copies to: FAUSTO Salvador Ordering Provider: FAUSTO Salvador Date of Service: 06/27/25 MR/MR thoracic spine wo con: M54.14 ([id number]) XR/XR pre/post mri xray: M54.14 MR thoracic [...] Milton M.D. 06/27/2025 11:26 PM Dictation Location: [place] [address] Transcribed By: [facility] 06/27/25 4263 Dictated By: Perry Milton II, MD 06/27/252320 Signed By: 06/27/25 232[facility] Physician GroupCNOVleyla 13-06-5854VONAGjheek Visit (ISSA) MARINOKOURTNEY ([id number]) 1975 F Date Time Provider Department 06/22/25 [...] light. Conjunctivae are noninjected. (more content not included)...[facility] 37-[facility]-7424DI chest wo [facility] [place] [address] CT Scan Report Signed Patient: Kourtney Novak MR#: [id number] : 1975 Acct:[id number] Age/Sex: 49 / F ADM Date: 06/19/25 Loc: CT Room: Type: [facility] Attending Dr: Jesus Gonzalez MD Copies to: [...] Hoffmann M.D. 06/19/2025 11:19 PM Dictation Location: [place] [address] Transcribed By: GRACIE 06/19/252318 Dictated By: Lincoln Hoffmann MD 06/19/252314 Signed By: 06/19/252318[facility] Physician GroupUS thyroidon 00-55-0875YK [facility] [place] [address] [place] [address] Ultrasound Report Signed Patient: Kourtney Novak MR#: [id number] : 1975 Acct:[id number] Age/Sex: 49 / F ADM Date: 06/13/25 Loc: Room: Type: [facility] Attending Dr: Jesus Gonzalez MD Ordering Provider: [...] Gray M.D. 06/13/2025 10:29 PM Dictation Location: [place] [address] Tech: Tana Chahal Transcribed By: GRACIE 06/13/252228 Dictated By: George Gray DO 06/13/252225 Signed By: 06/13/252228[facility] Physician GroupXR Ribs Views and Chest PAon [...] fracture. ELECTRONICALLY SIGNED BY: Sylvester Triplett MD [facility] HospitalXR Ribs Views and Chest PAOrdered By: Sylvester Triplett on 61-07-7126QCZPCooper County Memorial Hospital Work Phone: ecg 12 lead ECGon 66-05-7907TFD 12 lead ECGKETTERING [facility] [place] [address] [place] [address] Electrocardiograph Report Signed Patient: Kourtney Novak MR#: [id number] : 1975 Acct:[id number] Age/Sex: 49 / F ADM Date: 06/05/25 Loc: ER Room: Type: [facility] ER Attending Dr: Ordering Provider: Mayda Hendrix [...] was found Confirmed by ALESSIA ECHEVERRIA MD ([id number]) on 06/07/2025 4:43:01 AM Referred By: Electronically Signed By: ALESSIA ECHEVERRIA MD Transcribed By: MUS [place] [address] [place] [address] Physician GroupX-ray reportOrdered By: Lincoln Hoffmann on 01-80-3475Csejl reportKETTERING HEALTH [facility] [place] [address] [place] [address] XRay Report Signed Patient: Kourtney Novak MR#: [id number] : 1975 Acct:[id number] Age/Sex: 49 / F ADM Date: 5 Loc: ER Room: Type: [facility] ER Attending Dr: Copies to: Mayda [...] Hoffmann M.D. 06/05/2025 9:52 PM Dictation Location: [facility] Transcribed By: [facility] 06/05/252151 Dictated By: Lincoln Hoffmann MD 06/05/252147 Signed By: 06/05/252151 [facility] Work Phone: XR RIBS 2 VIEWS RIGHT WITH CHEST ANTEROPOSTERIORon 89-89-3032OZ RIBS 2 VIEWS RIGHT WITH CHEST ANTEROPOSTERIOREXAMINATION/TECHNIQUE: [...] HernándezNot AvailableXR Ribs Views and Chest PAon 27-99-3270Evxvtvxwn Study observation (narrative)NOMS HealthcareXR ribs RT min 3V w CXR1V*on 09-96-6777CC ribs RT min 3V w CXR1V*[facility] [place] [address] [place] [address] XRay Report Signed Patient: Kourtney Novak MR#: [id number] : 1975 Acct:[id number] Age/Sex: 49 / F ADM Date: 06/05/25 Loc: ER Room: Type: [facility] ER Attending Dr: Copies to: Mayda [...] By: Lincoln Hoffmann MD 06/05/252147 Signed By: 06/05/252151[facility] Physician GroupX-ray reportOrdered By: Perry Milton on 65-51-8163Kctyi reportKETTERING HEALTH [facility]BLE [facility] [address] [place] [address] XRay Report Signed Patient: Kourtney Novak MR#: [id number] : 1975 Acct:[id number] Age/Sex: 49 / F ADM Date: 5 [facility]: [facility] Room: Type: [facility] Attending Dr: Krishan Nuñez DO Copies to: [...] Milton II, MD 05/30/251999 Signed By: 05/30/252001 [facility] Work Phone: XR shoulder RT min 2V*on 68-50-6498CR shoulder RT min 2V*[facility] [address] [place] [address] XRay Report Signed Patient: Kourtney Novak MR#: [id number] : 1975 Acct:[id number] Age/Sex: 49 / F ADM Date: 05/30/25 Loc: [facility] Room: Type: [facility] Attending Dr: Krishan Nuñez DO Copies to: [...] Milton M.D. 05/30/2025 8:02 PM Dictation Location: [place] [address] Transcribed By: [facility] 05/30/252001 Dictated By: Perry Milton II, MD 05/30/251999 Signed By: 05/30/25 [facility] ClinicsNoNovant Health, [facility] Physician GhxscE1C with Estimated Average Gluon 34-83-3988Dfdtkbg [Mass/Vol]117 mg/dLAdventHealth Zephyrhills Physician GroupComment on above:Order Comment: FASTING.JKWRyuri Comment: PERFORMED BY: [facility] [address] [place] [address] PATHOLOGIST SPIN INSTRUCTOR BERNARDINO HAMILTON M.D.Performed By: #### LIPID, [id number], TSH3, T3F, FE PRO, HZRF86ZKG, T4T, MG, A1C WTH eA, CBC, PHOS #### [facility] [address] [place] [address] #### INSULIN #### [facility] ,Alanine aminotransferase [Enzymatic activity/volume] in Serum or PlasmaOrdered By: Jesus Gonzalez on 42-50-4838UQA [Catalytic activity/Vol]17 U/LNormal7-52 [facility] HamiltonComment on above:Performed By: #### LIPID, [id number], TSH3, T3F, FE PRO, YIPV27CWG, T4T, MG, A1C WTH eA, CBC, PHOS #### [facility] [address] [place] [address] [place] #### INSULIN #### [facility] ,Albumin [Mass/volume] in Serum or Plasma by Bromocresol green (BCG) dye binding methoOrdered By: Jesus Gonzalez on 55-86-1257Gyjbokg BCG dye [Mass/Vol]4.2 g/dL 3.5-5.7FJ.W. Ruby Memorial HospitalAlkaline phosphatase [Enzymatic activity/volume] in Serum or PlasmaOrdered By: Jesus Gonzalez on 72-62-5523JEA [Catalytic activity/Vol]46 U/TTtguzc66-982GukgevmfbKettering Health Hamilton Comment on above:Result Comment: PERFORMED BY: [place] [address] PATHOLOGIST SPIN INSTRUCTOR BERNARDINO HAMILTON M.D.Performed By: #### LIPID, SUGG39YJ, TSH3, T3F, FE PRO, [id number], T4T, MG, A1C WTH eA, CBC, PHOS #### [facility] [address] [place] [address] #### INSULIN #### [facility] ,Aspartate aminotransferase [Enzymatic activity/volume] in Serum or Plasma Ordered By: Jesus Gonzalez on 54-23-5998JIG [Catalytic activity/Vol]12 U/FRdl39-44 [facility] HamiltonComment on above:Performed By: #### LIPID, [id number], TSH3, T3F, FE PRO, YJVQ99ZHC, T4T, MG, A1C WTH eA, CBC, PHOS #### [facility] [address] [place] [address] #### INSULIN #### [facility] ,Basophils [#/volume] in Blood by Automated countOrdered By: Jesus Gonzalez on 19-91-4241Vtjougbvc (Bld) [#/Vol]0.1 10*3/uLNormal0.0-0.2FJ.W. Ruby Memorial HospitalComment on above:Order Comment: FASTING.JKWResult Comment: PERFORMED BY: [place] [address] PATHOLOGIST SPIN INSTRUCTOR BERNARDINO HAMILTON M.D.Performed By: #### LIPID, XOMQ55II, TSH3, T3F, FE PRO, KFOH34YRP, T4T, MG, A1C WTH eA, CBC, PHOS #### [address] #### INSULIN #### [facility] ,Basophils/100 leukocytes in Blood by Automated countOrdered By: Jesus Gonzalez on 12-98-1947Rufgzdqxj/100 WBC (Bld)0.7 %Normal.[facility] Comment on above:Order Comment: FASTING.JKWPerformed By: #### LIPID, [id number], TSH3, T3F, FE PRO, OKWT75OSF, T4T, MG, A1C WTH eA, CBC, PHOS #### [address] #### INSULIN #### [facility] ,Bilirubin.total [Mass/volume] in Serum or PlasmaOrdered By: Jesus Gonzalez on 82-99-8158Kpjmfgfeh [Mass/Vol]0.3 mg/dLNormal0.3-1.0[facility] HamiltonComment on above:Performed By: #### LIPID, OEPC61SM, TSH3, T3F, FE PRO, JVRW19SRL, T4T, MG, A1C WTH eA, CBC, PHOS #### [facility] [address] [place] [address] [place] #### INSULIN #### [facility] ,Blood estimated average glucose determination by estimation from glycated hemoglobinOrdered By: Jesus Carlos on 97-61-1553Qtqwjlt glucose Estimated from glycated hemoglobin (Bld) [Mass/Vol]117 mg/dLKettering Health Hamilton Calcium [Mass/volume] in Serum or PlasmaOrdered By: Jesus Gonzalez on 05-26-2025 Calcium [Mass/Vol]9.1 mg/dLNormal8.6-10.3FJ.W. [facility] Hospital Comment on above:Performed By: #### LIPID, [id number], TSH3, T3F, FE PRO, XJZC75RND, T4T, MG, A1C WTH eA, CBC, PHOS #### [place] [address] [place] #### INSULIN #### [facility] ,Carbon dioxide, total [Moles/volume] in Serum or PlasmaOrdered By: Jesus Gonzalez on 52-48-6892XV4 [Moles/Vol]26.4 mmol/NQioaxr81.0-31.0[facility] HamiltonComment on above:Performed By: #### LIPID, [id number], TSH3, T3F, FE PRO, ECQK83RJG, T4T, MG, A1C WTH eA, CBC, PHOS #### [facility] [address] [place] [address] [place] #### INSULIN #### [facility] ,Chloride [Moles/volume] in Serum or PlasmaOrdered By: Jesus Gonzalez on 05-26-2025 Chloride [Moles/Vol]103 mmol/SCgunau41-507LlfvgkiqzKettering Health Hamilton Comment on above:Performed By: #### LIPID, UQHT71JC, TSH3, T3F, FE PRO, ZZKZ34QKX, T4T, MG, A1C WTH eA, CBC, PHOS #### [place] [address] [place] #### INSULIN #### [facility] ,Cholesterol [Mass/volume] in Serum or PlasmaOrdered By: Jesus Gonzalez on 26-87-8798Blsspzcywvj [Mass/Vol]206 mg/kYXsmc087-419XndiowcspKettering Health HamiltonComment on above:Chol less than 200 mg/dl low riskChol 201-239 mg/dl borderline riskChol 240 mg/dl and greater high riskOrder Comment: FASTING.JKW Result Comment: Chol less than 200 mg/dl low risk Chol 201-239 mg/dl borderline risk Chol 240 mg/dl and greater high riskPerformed By: #### LIPID, [id number], TSH3, T3F, FE PRO, IYXO87FUD, T4T, MG, A1C WTH eA, CBC, PHOS #### [facility] [address] [place] [address] [place] #### INSULIN #### [facility] ,Cholesterol in HDL [Mass/volume] in Serum or PlasmaOrdered By: Jesus Carlos on 92-04-0674Dtmmvobrsan in HDL [Mass/Vol]67 mg/cDGslnmt81-92BybcokrnaKettering Health HamiltonComment on above:HDL CHOL ATP-III CLASSIFICATION Cardiovascular RiskHDL > or equal to 60 mg/dL LOWHDL < 40 mg/dL HIGHOrder Comment: FASTING.JKW Result Comment: HDL CHOL ATP-III CLASSIFICATION Cardiovascular Risk HDL > or equal to 60 mg/dL LOW HDL < 40 mg/dL HIGHPerformed By: #### LIPID, [id number], TSH3, T3F, FE PRO, CXTR42AEC, T4T, MG, A1C WTH eA, CBC, PHOS #### [facility] [address] [place] [address] [place] #### INSULIN #### [facility] ,Cholesterol in LDL Calc [Mass/Vol]Ordered By: Jesus Carlos on 05-26-2025 Cholesterol in LDL [Mass/Vol]91 mg/dL0-100[facility] Comment on above:LDL ATP III CLASSIFICATIONLDL less than 100 mg/dL OptimalLDL 100-129 mg/dL Near or above hgwgwznJRB378-004 mg/dL Borderline highLDL 160-189 mg/dL HighLDL greater than 189 mg/dL Very highCholesterol in VLDL Calc [Mass/Vol]Ordered By: Jesus Gonzalez on 94-28-9983Esoauzpxava in VLDL [Mass/Vol]47 mg/dLKettering Health HamiltonComplete Blood Count Auto Diffon 39-42-5690Twyq Corpuscular HGB Conc33.0 g/pRYpxcvk09.0-35.0The [facility] Physician GroupComment on above:Order Comment: FASTING.JKWPerformed By: #### LIPID, IMZV75PN, TSH3, T3F, FE PRO, [id number], T4T, MG, A1C WTH eA, CBC, PHOS #### [facility] [address] [place] [address] #### INSULIN #### [facility] ,NRBC%0.1 /100{WBC}Normal0-0.5The [facility] Physician GroupComment on above: Order Comment: FASTING.JKWPerformed By: #### LIPID, [id number], TSH3, T3F, FE PRO, [id number], T4T, MG, A1C WTH eA, CBC, PHOS #### [facility] [address] [place] [address] #### INSULIN #### [facility] ,White Blood Count8.3 [CFU]/mLNormal3.8-11.6The [facility] Physician GroupComment on above:Order Comment: FASTING.JKWPerformed By: #### LIPID, [id number], TSH3, T3F, FE PRO, [id number], T4T, MG, A1C WTH eA, CBC, PHOS #### [facility] [address] [place] [address] [place] #### INSULIN #### [facility] ,Comprehensive Metabolic Panelon 47-98-1460Uetkkiy [Mass/Vol]4.2 g/dLNormal 3.5-5.7The [facility] Physician GroupComment on above:Performed By: #### LIPID, [id number], TSH3, T3F, FE PRO, QMIR26VBU, T4T, MG, A1C WTH eA, CBC, PHOS #### [place] [address] [place] #### INSULIN #### [facility] ,GFR/1.73 sq M.predicted MDRD (S/P/Bld) [Vol rate/Area]mL/min/{1.73_m2}NormalThe [facility] Physician GroupComment on above:Performed By: #### LIPID, [id number], TSH3, T3F, FE PRO, IHGN73ZCL, T4T, MG, A1C WTH eA, CBC, PHOS #### [place] [address] [place] #### INSULIN #### [facility] ,Creatinine [Mass/volume] in Serum or PlasmaOrdered By: Jesus Gonzalez on 00-74-3791Hglazcsudh [Mass/Vol]0.85 mg/dLNormal0.60-1.20[facility] HamiltonComment on above:Performed By: #### LIPID, [id number], TSH3, T3F, FE PRO, [id number], T4T, MG, A1C WTH eA, CBC, PHOS #### [address] #### INSULIN #### [facility] ,Eosinophils [#/volume] in Blood by Automated countOrdered By: Jesus Gonzalez on 16-98-0020Iquzqmpgnxq (Bld) [#/Vol]0.2 10*3/uLNormal0.0-0.45[facility] HamiltonComment on above:Order Comment: FASTING.JKWPerformed By: #### LIPID, [id number], TSH3, T3F, FE PRO, HITU75MUF, T4T, MG, A1C WTH eA, CBC, PHOS #### [place] [address] [place] #### INSULIN #### [facility] ,Eosinophils/100 leukocytes in Blood by Automated countOrdered By: Jesus Smithpiedad on 59-01-7795Vcijahphjgr/100 WBC (Bld)3.0 %Normal.[facility] HamiltonComment on above:Order Comment: FASTING.JKWPerformed By: #### LIPID, RIRK82JT, TSH3, T3F, FE PRO, PHDV90HOT, T4T, MG, A1C WTH eA, CBC, PHOS #### [facility] [address] [place] [address] #### INSULIN #### [facility] ,Erythrocyte distribution width [Ratio] by Automated countOrdered By: Jesus Carlos on 78-55-5745Uymxeddsyie distribution width (RBC) [Ratio]13.5 %Normal 11.9-15.3FJ.W. Ruby Memorial HospitalComment on above:Order Comment: FASTING.JKWPerformed By: #### LIPID, NNQX90US, TSH3, T3F, FE PRO, [id number], T4T, MG, A1C WTH eA, CBC, PHOS #### [facility] [address] [place] [address] #### INSULIN #### [facility] ,Erythrocytes [#/volume] in Blood by Automated countOrdered By: Jesus Carlos on 88-83-6522MJO (Bld) [#/Vol]4.27 10*6/uLNormal3.60-5.00[facility] HamiltonComment on above:Order Comment: FASTING.JKWPerformed By: #### LIPID, [id number], TSH3, T3F, FE PRO, BPYW86CPG, T4T, MG, A1C WTH eA, CBC, PHOS #### [facility] [address] [place] [address] [place] #### INSULIN #### [facility] ,FE PROon 05-26-2025% Iron Vetgjuqqpt30.2 %Kbt00-62Dby [facility] Comment on above:Order Comment: FASTING.JKWPerformed By: #### LIPID, VLUV28LG, TSH3, T3F, FE PRO, [id number], T4T, MG, A1C WTH eA, CBC, PHOS #### [facility] [address] [place] [address] [place] #### INSULIN #### [facility] ,Total Iron Binding Nmoloeio404 ug/mOAsbxci198-893Rdb [facility] Comment on above:Order Comment: FASTING.JKWPerformed By: #### LIPID, [id number], TSH3, T3F, FE PRO, [id number], T4T, MG, A1C WTH eA, CBC, PHOS #### [facility] [address] [place] [address] [place] #### INSULIN #### [facility] ,Ferritin [Mass/volume] in Serum or PlasmaOrdered By: Jesus Gonzalez on 05-26-2025 Ferritin [Mass/Vol]8.1 ng/mLLow11.0-306.8[facility] Comment on above:Order Comment: FASTING.JKWPerformed By: #### LIPID, OMTK84NI, TSH3, T3F, FE PRO, RAWV54GYA, T4T, MG, A1C WTH eA, CBC, PHOS #### [place] [address] [place] #### INSULIN #### [facility] ,Folate [Mass/volume] in Serum or PlasmaOrdered By: Jesus Gonzalez on 05-26-2025 Folate [Mass/Vol]30.0 ng/mL>5.9[facility] HamiltonComment on above:Folate reference range: >5.9 ng/mlThe WHO technical consultation on folate and vitamin h77gohgzbqrbmni has determined that folate concentrations lessthan 4 ng/ml are considered deficient.Glomerular filtration rate [Volume Rate/Area] in Serum, Plasma or Blood by CreatinineOrdered By: Jesus Gonzalez on 05-26-2025 Glomerular filtration rate [Volume Rate/Area] in Serum, Plasma or Blood by Creatinine> 60.0 mL/MinKettering Health HamiltonGlucose [Mass/volume] in Serum or PlasmaOrdered By: Jesus Carlos on 03-03-0223Qlynksr [Mass/Vol]88 mg/dL Pzmpxy41-912FzuebaupzKettering Health HamiltonComment on above:ADA recommended reference rangeRandom Glucose Reference [...] ADA recommended reference rangePerformed By: #### LIPID, [id number], TSH3, T3F, FE PRO, [id number], T4T, MG, A1C WTH eA, CBC, PHOS #### [facility] [address] [place] [address] #### INSULIN #### [facility] ,Hematocrit [Volume Fraction] of Blood by Automated countOrdered By: Jesus Gonzalez on 40-86-2985Gtdnzsjcyk (Bld) [Volume fraction]37.8 %Jhdfvs70.0-46.4FJ.W. Ruby Memorial HospitalComment on above:Order Comment: FASTING.JKWPerformed By: #### LIPID, HAYQ33CP, TSH3, T3F, FE PRO, PSTT47KFS, T4T, MG, A1C WTH eA, CBC, PHOS #### [facility] [address] [place] [address] [place] #### INSULIN #### [facility] ,Hemoglobin A1c/Hemoglobin.total in BloodOrdered By: Jesus Gonzalez on 05-26-2025 HbA1c (Bld) [Mass fraction]5.7 %High4.3-5.6FJ.W. [facility] Comment on above:Increased risk for diabetes: 5.7 - 6.4diabetes: >6.4glycemic control for adults with diabetes: <7.0Order Comment: FASTING.JKWResult Comment: Increased risk for diabetes: 5.7 - 6.4 diabetes: >6.4 glycemic control for adults with diabetes: <7.0Performed By: #### LIPID, AAGT75VD, TSH3, T3F, FE PRO, OLYF29IHB, T4T, MG, A1C WTH eA, CBC, PHOS #### [address] #### INSULIN #### [facility] ,Hemoglobin [Mass/volume] in BloodOrdered By: Jesus Gonzalez on 05-26-2025 Hemoglobin (Bld) [Mass/Vol]12.5 g/yCYqcmtx84.8-15.4FJ.W. Ruby Memorial HospitalComment on above:Order Comment: FASTING.JKWPerformed By: #### LIPID, [id number], TSH3, T3F, FE PRO, XGQV55PEC, T4T, MG, A1C WTH eA, CBC, PHOS #### [address] #### INSULIN #### [facility] ,Insulinon 92-49-5354Utxzqgh80.6 u[iU]/mLNormal2.6-24.9The [facility] Physician GroupComment on above:Order Comment: FASTING.C[employer] Comment: Performed at: - [address] [id number] [employer]: Maxim Daniel PhD, Phone: [phone] PERFORMED BY: [place] [address] PATHOLOGIST SPIN INSTRUCTOR BERNARDINO HAMILTON M.D.Performed By: #### LIPID, [id number], TSH3, T3F, FE PRO, TNWX14ICF, T4T, MG, A1C WTH eA, CBC, PHOS #### [address] #### INSULIN #### [facility] ,Iron [Mass/volume] in Serum or PlasmaOrdered By: Jesus Gonzalez on 13-59-9540Eedd [Mass/Vol]45 ug/wOFvr13-477LsrokiuquKettering Health HamiltonComment on above: Order Comment: FASTING.JKWPerformed By: #### LIPID, [id number], TSH3, T3F, FE PRO, [id number], T4T, MG, A1C WTH eA, CBC, PHOS #### [facility] [address] [place] [address] [place] #### INSULIN #### [facility] ,Leukocytes [#/volume] corrected for nucleated erythrocytes in Blood by Automated counOrdered By: Jesus Gonzalez on 53-87-6135KDX corrected for nucl RBC Auto (Bld) [#/Vol]8.3 10*3/uL3.8-11.6FJ.W. Ruby Memorial HospitalLeukocytes [#/volume] in Blood by Automated countOrdered By: Jesus Gonzalez on 00-58-5444YEJ (Bld) [#/Vol]8.3 10*3/uLNormal3.8-11.6FJ.W. Ruby Memorial HospitalComment on above:Order Comment: FASTING.JKWPerformed By: #### LIPID, [id number], TSH3, T3F, FE PRO, OPXY42WOM, T4T, MG, A1C WTH eA, CBC, PHOS #### [facility] [address] [place] [address] [place] #### INSULIN #### [facility] ,Lipid Panelon 95-81-6706MFZ Cholesterol,Ffxpjypdfc84 mg/dLNormal0-100The [facility] Physician GroupComment on above:Order Comment: FASTING.JKWResult Comment: LDL ATP III CLASSIFICATION LDL less than 100 mg/dL Optimal LDL 100-129 mg/dL Near or above optimal LDL 130-159 mg/dL Borderline high LDL 160-189 mg/dL High LDL greater than 189 mg/dL Very highPerformed By: #### LIPID, HRUI33SY, TSH3, T3F, FE PRO, GJBN76UTP, T4T, MG, A1C WTH eA, CBC, PHOS #### [place] [address] [place] #### INSULIN #### [facility] ,Triglyceride w/Ramiko167 mg/dLHigh0-149[facility] Physician GroupComment on above:Order Comment: FASTING.JKWResult Comment: TRIG ATP III CLASSIFICATION TRIG less than 150 mg/dL Normal TRIG 150-199 mg/dL Borderline high TRIG 200-500 mg/dL High TRIG greater than 500 mg/dL Very high Standard traceable to the Center for Disease Conrtrol and Prevention (CDC) test method.Performed By: #### LIPID, [id number], TSH3, T3F, FE PRO, [id number], T4T, MG, A1C WTH eA, CBC, PHOS #### [address] #### INSULIN #### [facility] ,VLDL FVXEOJIPUMZ33 mg/dLAdventHealth Zephyrhills Physician GroupComment on above: Order Comment: FASTING.JKWPerformed By: #### LIPID, [id number], TSH3, T3F, FE PRO, JNGH23PMV, T4T, MG, A1C WTH eA, CBC, PHOS #### [address] #### INSULIN #### [facility] ,Lymphocytes [#/volume] in Blood by Automated countOrdered By: Jesus Gonzalez on 99-21-0625Ggmzbeyhbck (Bld) [#/Vol]2.9 10*3/uLNormal1.00-4.8[facility] HamiltonComment on above:Order Comment: FASTING.JKWPerformed By: #### LIPID, ANHB30UE, TSH3, T3F, FE PRO, NTFQ98VZD, T4T, MG, A1C WTH eA, CBC, PHOS #### [place] [address] [place] #### INSULIN #### [facility] ,Lymphocytes/100 leukocytes in Blood by Automated countOrdered By: Jesus Gonzalez on 23-03-0973Mnlcdqpuxjn/100 WBC (Bld)34.8 %Normal.[facility] HamiltonComment on above:Order Comment: FASTING.JKWPerformed By: #### LIPID, COAX48EM, TSH3, T3F, FE PRO, WIIR51LOR, T4T, MG, A1C WTH eA, CBC, PHOS #### [facility] [address] [place] [address] [place] #### INSULIN #### [facility] ,[facility] [Entitic mass] by Automated countOrdered By: Jesus Gonzalez on 75-78-9388JFR (RBC) [Entitic mass]29.2 zcTbojtj05.7-34.3FJ.[facility] Comment on above:Order Comment: FASTING.JKWPerformed By: #### LIPID, [id number], TSH3, T3F, FE PRO, [id number], T4T, MG, A1C WTH eA, CBC, PHOS #### [facility] [address] [place] [address] #### INSULIN #### [facility] ,[facility] Auto (RBC) [Mass/Vol]Ordered By: Jesus Gonzalez on [id number] (RBC) [Mass/Vol]33.0 g/dL32.0-35.0[facility] HamiltonMCV [Entitic volume] by Automated countOrdered By: Jesus Gonzalez on 67-77-9599RCC (RBC) [Entitic vol]88.5 tZCltult73-255UzgwzjobrKettering Health HamiltonComment on above:Order Comment: FASTING.JKWPerformed By: #### LIPID, [id number], TSH3, T3F, FE PRO, [id number], T4T, MG, A1C WTH eA, CBC, PHOS #### [facility] [address] [place] [address] [place] #### INSULIN #### [facility] ,Magnesium [Mass/volume] in Serum or PlasmaOrdered By: Jesus Gonzalez on 05-26-2025 Magnesium [Mass/Vol]1.8 mg/dLLow1.9-2.7FJ.W. Ruby Memorial HospitalComment on above:Order Comment: FASTING.JKWPerformed By: #### LIPID, [id number], TSH3, T3F, FE PRO, [id number], T4T, MG, A1C WTH eA, CBC, PHOS #### [facility] [address] [place] [address] [place] #### INSULIN #### [facility] ,Monocytes [#/volume] in Blood by Automated countOrdered By: Jesus Gonzalez on 59-21-3393Qlbhxrkkv (Bld) [#/Vol]0.9 10*3/uLHigh0.0-0.8[facility] HamiltonComment on above:Order Comment: FASTING.JKWPerformed By: #### LIPID, [id number], TSH3, T3F, FE PRO, [id number], T4T, MG, A1C WTH eA, CBC, PHOS #### [address] #### INSULIN #### [facility] ,Monocytes/100 leukocytes in Blood by Automated countOrdered By: Jesus Gonzalez on 40-23-3786Ezdkvpehw/100 WBC (Bld)11.2 %Normal.[facility] Comment on above:Order Comment: FASTING.JKWPerformed By: #### LIPID, [id number], TSH3, T3F, FE PRO, [id number], T4T, MG, A1C WTH eA, CBC, PHOS #### [facility] [address] [place] [address] [place] #### INSULIN #### [facility] ,Neutrophils [#/volume] in Blood by Automated countOrdered By: Jesus Gonzalez on 81-59-5591Xurnivfundk (Bld) [#/Vol]4.2 10*3/uLNormal1.8-7.7FJ.W. Ruby Memorial HospitalComment on above:Order Comment: FASTING.JKWPerformed By: #### LIPID, [id number], TSH3, T3F, FE PRO, [id number], T4T, MG, A1C WTH eA, CBC, PHOS #### [facility] [address] [place] [address] [place] #### INSULIN #### [facility] ,Neutrophils/100 leukocytes in Blood by Automated countOrdered By: Jesus Gonzalez on 74-13-9299Jxirurrxaoh/100 WBC (Bld)50.3 %Normal.[facility] HamiltonComment on above:Order Comment: FASTING.JKWPerformed By: #### LIPID, [id number], TSH3, T3F, FE PRO, [id number], T4T, MG, A1C WTH eA, CBC, PHOS #### [facility] [address] [place] [address] [place] #### INSULIN #### [facility] ,No Panel InformationOrdered By: Jesus Gonzalez on 05-99-4169Rfqwprqs Creatinine Clearance (ChemN/Galion HospitalNucleated erythrocytes [Presence] in Blood by Automated countOrdered By: Jesus Gonzalez on 05-26-2025 Nucleated RBC Auto Ql (Bld)0.1 /100{WBC}0-0.5FJ.W. [facility] Phosphate [Mass/volume] in Serum or PlasmaOrdered By: Jesus Gonzalez on 05-26-2025 Phosphate [Mass/Vol]3.8 mg/dLNormal2.5-4.5FJ.[facility]. [facility] Comment on above:Order Comment: FASTING.JKWPerformed By: #### LIPID, [id number], TSH3, T3F, FE PRO, [id number], T4T, MG, A1C WTH eA, CBC, PHOS #### [facility] [address] [place] [address] [place] #### INSULIN #### [facility] ,Platelet mean volume [Entitic volume] in Blood by Automated countOrdered By: Jesus Gonzalez on 95-87-5959Yttsyokw mean volume (Bld) [Entitic vol]8.3 fLNormal 6.3-10.7FJ.W. Ruby Memorial HospitalComment on above:Order Comment: FASTING.JKWPerformed By: #### LIPID, [id number], TSH3, T3F, FE PRO, [id number], T4T, MG, A1C WTH eA, CBC, PHOS #### [facility] [address] [place] [address] [place] #### INSULIN #### [facility] ,Platelets [#/volume] in Blood by Automated countOrdered By: Jesus Gonzalez on 44-27-6234Ectoyuhkt (Bld) [#/Vol]421 10*3/kOZnwsth523-785IkigmrduzKettering Health HamiltonComment on above:Order Comment: FASTING.JKWPerformed By: #### LIPID, [id number], TSH3, T3F, FE PRO, [id number], T4T, MG, A1C WTH eA, CBC, PHOS #### [address] #### INSULIN #### [facility] ,Potassium [Moles/volume] in Serum or PlasmaOrdered By: Jesus Gonzalez on 81-42-9850Nwqgujihl [Moles/Vol]4.6 mmol/LNormal3.5-5.1FJ.W. Ruby Memorial HospitalComment on above:Performed By: #### LIPID, [id number], TSH3, T3F, FE PRO, [id number], T4T, MG, A1C WTH eA, CBC, PHOS #### [address] #### INSULIN #### [facility] ,Protein [Mass/volume] in Serum or PlasmaOrdered By: Jesus Gonzalez on 05-26-2025 Protein [Mass/Vol]6.5 g/dLNormal6.4-8.9[facility] HamiltonComment on above:Performed By: #### LIPID, [id number], TSH3, T3F, FE PRO, [id number], T4T, MG, A1C WTH eA, CBC, PHOS #### [place] [address] [place] #### INSULIN #### [facility] ,Serum globulin measurement by calculation (mass/volume)Ordered By: Jesus Gonzalez on 15-04-2274Xikoevzi (S) [Mass/Vol]2.3 g/dLNormMetroHealth Main Campus Medical CenterComment on above:Performed By: #### LIPID, [id number], TSH3, T3F, FE PRO, [id number], T4T, MG, A1C WTH eA, CBC, PHOS #### [facility] [address] [place] [address] [place] #### INSULIN #### [facility] ,Serum or plasma albumin/globulin mass ratioOrdered By: Jesus Gonzalez on 48-60-4451Mdstznt/Globulin [Mass ratio]1.8 {ratio}[facility] MiamisburgComment on above:Performed By: #### LIPID, [id number], TSH3, T3F, FE PRO, [id number], T4T, MG, A1C WTH eA, CBC, PHOS #### [place] [address] [place] #### INSULIN #### [facility] ,Serum or plasma anion gap determinationOrdered By: Jesus Gonzalez on 05-26-2025 Anion gap [Moles/Vol]13.2 mmol/LNormal6.0-15.0[facility] Comment on above:Performed By: #### LIPID, [id number], TSH3, T3F, FE PRO, [id number], T4T, MG, A1C WTH eA, CBC, PHOS #### [place] [address] [place] #### INSULIN #### [facility] ,Serum or plasma insulin measurement (units/volume)Ordered By: Jesus Gonzalez on 14-02-7240Cssgoxo Qn15.6 u[iU]/mL2.6-24.9[facility] Comment on above:Performed at: [facility] Lab[address] [id number] Director: Maxim Daniel PhD, Phone: [phone] or plasma iron binding capacity measurement (mass/volume)Ordered By: Jesus Gonzalez on 21-59-5786Kpzl binding capacity [Mass/Vol]442 ug/bN812-143NmmwzcposUniversity Hospitals Ahuja Medical Centererum or plasma iron saturation measurement (mass fraction)Ordered By: Jesus Gonzalez on 70-58-0163Pobu saturation [Mass fraction]10.2 %Ibq51-32 [facility] Hospitals Ahuja Medical Centererum or plasma total cholesterol/high density lipoprotein (HDL) cholesterol mass ratOrdered By: Jesus Gonzalez on 05-26-2025 Cholesterol.total/Cholesterol in HDL [Mass ratio]3.1 {ratio}Normal<5.0[facility] HamiltonComment on above:Order Comment: FASTING.JKWPerformed By: #### LIPID, [id number], TSH3, T3F, FE PRO, [id number], T4T, MG, A1C WTH eA, CBC, PHOS #### [facility] [address] [place] [address] [place] #### INSULIN #### [facility] ,Sodium [Moles/volume] in Serum or PlasmaOrdered By: Jesus Gonzalez on 05-26-2025 Sodium [Moles/Vol]138 mmol/NPxigcz819-161SmxhbfgvvKettering Health [facility] Comment on above:Performed By: #### LIPID, [id number], TSH3, T3F, FE PRO, [id number], T4T, MG, A1C WTH eA, CBC, PHOS #### [facility] [address] [place] [address] [place] #### INSULIN #### [facility] ,Thyrotropin [Units/volume] in Serum or PlasmaOrdered By: Jesus Gonzalez on 81-98-6790JNP Qn4.15 m[IU]/LNormal0.45-5.33[facility] Comment on above:Order Comment: FASTING.JKWPerformed By: #### LIPID, [id number], TSH3, T3F, FE PRO, [id number], T4T, MG, A1C WTH eA, CBC, PHOS #### [facility] [address] [place] [address] #### INSULIN #### [facility] ,Thyroxine (T4) [Mass/volume] in Serum or PlasmaOrdered By: Jesus Gonzalez on 60-42-4371I0 [Mass/Vol]11.24 ug/dLNormal5.39-11.82[facility] HamiltonComment on above:Order Comment: FASTING.JKWPerformed By: #### LIPID, [id number], TSH3, T3F, FE PRO, [id number], T4T, MG, A1C WTH eA, CBC, PHOS #### [address] #### INSULIN #### [facility] ,Transferrin [Mass/volume] in Serum or PlasmaOrdered By: Jesus Carlos on 02-90-9036Iisczdfdnek [Mass/Vol]316 mg/eAHwhdfg311-344LmwarpmwmKettering Health HamiltonComment on above:Order Comment: FASTING.JKWPerformed By: #### LIPID, [id number], TSH3, T3F, FE PRO, [id number], T4T, MG, A1C WTH eA, CBC, PHOS #### [address] #### INSULIN #### [facility] ,Triglyceride [Mass/volume] in Serum or PlasmaOrdered By: Jesus Carlos on 40-03-4413Cquexonpetob [Mass/Vol]239 mg/dLHigh0-149[facility] HamiltonComment on above:TRIG ATP III CLASSIFICATIONTRIG less than 150 mg/dL NormalTRIG 150-199 mg/dL Borderline highTRIG 200-500 mg/dL High TRIG greater than 500 mg/dL Very highStandard traceable to the Center for Disease Conrtrol and Prevention (CDC) test method.Triiodothyronine (T3) Freeon 05-26-2025 Triiodothyronine (T3) Free3.72 pg/mLNormal2.50-3.90[facility] Comment on above:Order Comment: FASTING.JKWResult Comment: PERFORMED BY: [place] [address] PATHOLOGIST SPIN INSTRUCTOR BERNARDINO HAMILTON M.D.Performed By: #### LIPID, [id number], TSH3, T3F, FE PRO, [id number], T4T, MG, A1C WTH eA, CBC, PHOS #### [address] #### INSULIN #### [facility] ,Triiodothyronine (T3) Free [Mass/volume] in Serum or PlasmaOrdered By: Jesus Gonzalez on 60-37-8240Utcw T3 [Mass/Vol]3.72 pg/mL2.50-3.90[facility] HamiltonUrea nitrogen [Mass/volume] in Serum or PlasmaOrdered By: Jesus Gonzalez on 09-91-9207Vbpx nitrogen [Mass/Vol]15 mg/dLNormal7-25[facility] HamiltonComment on above:Performed By: #### LIPID, [id number], TSH3, T3F, FE PRO, [id number], T4T, MG, A1C WTH eA, CBC, PHOS #### [address] #### INSULIN #### [facility] ,Vit. B12/Folate Profileon 43-18-7448Gpzoxg92.0 ng/mLNormal>5.9The [facility]arr[facility] Physician GroupComment on above:Order Comment: FASTING.[employer] Comment: Folate reference range: >5.9 ng/ml The WHO technical consultation on folate and vitamin b12 deficiencies has determined that folate concentrations less than 4 ng/ml are considered deficient.Performed By: #### LIPID, [id number], TSH3, T3F, FE PRO, [id number], T4T, MG, A1C WTH eA, CBC, PHOS #### [address] #### INSULIN #### [facility] ,Vitamin B12 ser/plasOrdered By: Jesus Gonzalez on 26-61-4583Algudrvel (Vitamin B12) [Mass/Vol]484 pg/kRMdfpix715-191GublmrnseKettering Health HamiltonComment on above:Order Comment: FASTING.JKWPerformed By: #### LIPID, [id number], TSH3, T3F, FE PRO, [id number], T4T, MG, A1C WTH eA, CBC, PHOS #### [address] #### INSULIN #### [facility] ,Vitamin D 25 Hydroxy Totalon 16-27-3972Gvdgdzo D 25 Hydroxy Total31.9 ng/mL Elleoy63-959Ttu [facility] Physician GroupComment on above:Order Comment: FASTING.JKWResult Comment: VITAMIN D STATUS 25(OH)VITAMIN D RANGE (ng/mL) Deficient <20 Insufficient 20 to <30 Sufficient 30 to 100 Reference: Anum Berry, Brynn APARICIO, et al. Evaluation,treatment, and prevention of vitamin D deficiency; an Endocrine Society clinical practice guideline. JCEM. 2010; 96(7):1911-30. PERFORMED BY: [place] [address] PATHOLOGIST SPIN INSTRUCTOR BERNARDINO HAMILTON M.D.Performed By: #### LIPID, [id number], TSH3, T3F, FE PRO, [id number], T4T, MG, A1C WTH eA, CBC, PHOS #### [address] #### INSULIN #### [facility] ,Vitamin D+Metabolites [Mass/volume] in Serum or PlasmaOrdered By: Jesus Smithpiedad on 48-10-6944Befntmj D+Metabolites [Mass/Vol]31.9 ng/bL41-389NjuiabkpkKettering Health HamiltonComment on above:VITAMIN D STATUS 25(OH)VITAMIN D RANGE (ng/mL) Deficient <20 Insufficient 20 to <12Esgjjktxzi63 to 100Reference: Anum Berry, Brynn APARICIO, et al. Evaluation,treatment, and prevention of vitamin D deficiency; an Endocrine Society clinical practice guideline. JCEM. 2010; 96(7):1911-30.LILIAOVon 67-54-3670YNVRTnmyxx Visit (NSCAMN) KOURTNEY NOVAK ([id number]) 1975 F Date Time Provider Department 03/15/25 [...] No Does patient want to see a Cooling Pipe Inspector? No (yes to any of above refer [...] and [facility] AND [facility] [place], [facility] CC: Patient Care Team: Jesus Gonzalez [...] changes. PLAN: - Send a picture in Kyn[employer]monterey on Thursday. - Bactrim DS x 5 [...] mg tablet pioglitazone (A (more content not included)...[facility] 95-09-2957VYICZqysvkmwt (NSCAMN) KOURTNEY NOVAK ([id number]) 1975 F Date Time Provider Department 03/08/25 SHAKILA PHILLIPS [facility] During your visit today, we recorded [...] 02/22/2025 Encounter Status:Closed by SHAKILA PHILLIPS on 03/08/25[facility] 22-08-8848OVHAZQTBmqcm Visit (NSCAMN) KOURTNEY NOVAK ([id number]) 1975 F Date Time Provider Department 03/06/25 10:30 AM SHAKILA PHILLIPS [facility] During your visit today, we recorded [...] No Does patient want to see a Cooling Pipe Inspector? No (yes to any of above refer [...] request and reach out to her through [employer] with a reply. Shakila Phillips RN, [place] Allergies As of Date: 03/06/2025 (No Known [...] capsule Take 24 mcg (more content not included)...NormalWadsworth-Rittman HospitalPNon 44-20-3031SOBAYubzocwek (NSCAMN) KOURTNEY NOVAK ([id number]) 1975 F Date Time Provider Department 02/23/25 SHAKILA PHILLIPS [facility] During your visit today, we recorded [...] Reviewed med list and sent patient a Playspacet message for alternating Ibuprofen and Tylenol for headache/pain as needed Confirmed postop appointments Patient was made aware to reach out for questions/ concerns/updates. Shakila Phillips RN, [place] Allergies As of Date: 02/23/2025 (No Known [...] 02/22/2025 Encounter Status:Closed by SHAKILA PHILLIPS on 02/23/25[facility] 06-27-3803MTFFEC HEALTHHNO ID: [id number] Author: ANNALISA ENRIQUEZ Chaplain Service: Spiritual Care Author Type: Cheese Wrapper Type: Allied Health Filed: 02/22/2025 15:39 Note Text: SPIRITUALCARE Spiritual Care Visit- Brief Note Name: Kourtney Novak Date: February 22, 2025 Notes: The bagging machine operator met with the patient's family at the bedside, introducing himself and providing information about the availability of spiritual care services. The patient expressed gratitude for the visit but declined any support for the moment. Follow-up will be provided as circumstances allow. [place] [phone]. Cheese Wrapper services are available 06/04. SIGNATURE: Chaplain Hiro PATIENT NAME: Kourtney Novak DATE: February 22, 2025 TIME: 3:39 PM This is an electronically created document. IF PRINTED, PLEASE DO NOT REMOVE FROM THE CHART OR MODIFY PRINTED COPY.Normal [facility] 57-14-6216ALMWNLC ID: [id number] Author: ERIK PINEDA MD Service: Neurosurgery Author [...] M.D. - Office PCP: Jesus Gonzalez MD [phone] Treatment Team: Attending Provider: Erik Pineda MD [...] The patient was electively admitted to the [facility]. After being optimized for surgery [...] The patient was then transferred up to [place] [address]/H060-36 hospital room for postoperative management. Patient was [...] Primary Emergency Contact: Christiano Saini Address: [address] [id number] [facility] Mobile Relation: Son Secondary Emergency Contact: Laith Saini Address: [address] Mobile Relation: Son ALLERGIES: ALLERGIES No Known Allergies HOME MEDICATIONS: Medication List START taking these medications acetaminophen 325 mg tablet Commonly known as: TYLENOL 2 tablets by ORAL/FEEDING TUBE rou (more content not included)...[facility] NTon 96-14-7332QCUWPFM NTHNO ID: [id number] Author: OLIVIA WOLFF, PT Service: Physical Therapy Author Type: Physical Therapist Type: Therapy (PT/OT/Speech/Resp) Filed: 02/22/2025 13:12 Note Text: PHYSICAL THERAPY MISSED VISIT SERVICE DATE: 02/22/2025 SERVICE TIME: 1140 ROOM: [place] [address] Patient not seen due to Declined to Participate. Pt denies concerns for home going, declines stair training before d/c. No further acute PT needs, all concerns addressed. PT to sign off. 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 Denies falls. Lives with adult [...] daily living (ADL) TREATMENT INTERVENTIONS Evaluation, Self Fci Management (13453) Timed Code Treatment (minutes): 8 Skilled Treatment Time (minutes): 23 TRAINING AND EDUCATION PROVIDED Activity Adaptation/Compensatory Strategies, Benefits of In-Hospital Mobility, Disease Specific Education, Discharge Planning, Expected Functional Level, Functional Mobility Involving ADLs, Lower Extremity Dressing, Pain Management, Precautions/Restrictions, Role of Occupational Therapy, Standing Balance to Improve [place] with ADLs/Self-Care, Transfer - Sit to Stand, [...] Novak DATE: February 22, 2025 TIME: 11:36 AMNormalHenry County Hospital 18-17-2229INLWFK HEALTHHNO ID: [id number] Author: TIM ALTAMIRANO Student Service: Spiritual Care [...] CHART OR MODIFY PRINTED COPY.Normal [facility] SystemHNO ID: [id number] Author: TRIPP DALLAS RT(R) Service: Radiology Author Type: Channel Account Manager Type: Allied Health Filed: 02/21/2025 [...] PATIENT PRESENTS WITH AN IMPLANTABLE OR ATTACHED TIN POURER: No RADIOLOGY DEPARTMENT: MR; Exam(s) Completed: Head: Routine Brain. Lavender Administered: Yes PERIPHERAL IV DATA: Inpatient: see [facility] documentation SIGNED BY: RT Kenneth(R) February 21, 2025 9:22 AMNormalBethesda North Hospital metabolic 2000 panel on 48-40-9700Czubv gap [Moles/Vol]13 mmol/LNormal8-15[facility] Comment on above:Order Comment: Specimen Type: BLOOD SPECIMENOrdering Facility: [facility] Address:[address] [place] [address] Performed By: #### 23989-9 ####[facility] LABCLIA [id number] [place] [address] [place] Calcium [Mass/Vol]8.8 mg/dLNormal8.5-10.2CSalem City Hospital on above:Order Comment: Specimen Type: BLOOD SPECIMENOrdering Facility: [facility] Address:[address] [place], [place] [address]Performed By: #### 96333-5 ####[facility] LABCLIA [id number] [place] [address] [place] AMERICAChloride [Moles/Vol] 105 mmol/XZzxmye49-892SppauhzxkSalem Regional Medical Center on above:Order Comment: Specimen Type: BLOOD SPECIMENOrdering Facility: [facility] Address:[address] [place], [place] [address]Performed By: #### 13528-9 ####[facility] [id number] [place] [address] [place] AMERICACO2 [Moles/Vol]20 mmol/LVpp96-87 [facility] on above:Order Comment: Specimen Type: BLOOD SPECIMENOrdering Facility: [facility] Address:[address] [place], [place] [address]Performed By: #### 88768-7 ####[facility] [id number] [place] [address] [place] [facility] HOSPITALCreatinine [Mass/Vol]0.75 mg/dLNormal0.58-0.96[facility] Comment on above:Order Comment: Specimen Type: BLOOD SPECIMENOrdering Facility: [facility] Address:[address] [place] [address] Performed By: #### 28797-3 ####[facility] [id number] [place] [address] [place] Creatinine and Glomerular filtration rate.predicted panel (S/P/Bld)99 mL/min/1.73m???Normal>=60[facility] on above:Order Comment: Specimen Type: BLOOD SPECIMENOrdering Facility: [facility] Address:[address] [place], [place] [address]Result Comment: Estimated Glomerular Filtration Rate (eGFR) is [...] not accurately reflect actual GFR.Performed By: #### 64847-9 ####[facility] [id number] [place] [id number] [place] AMERICAGlucose [Mass/Vol]131 mg/dLHigh 74-99[facility] on above:Order Comment: Specimen Type: BLOOD SPECIMENOrdering Facility: [facility] Address:[address] [place] [id number] Comment: The [place] Diabetes Association (ADA) provides guidance for cutoff [...] Standards of Medical Care in Diabetes 2016, [place] Diabetes Association. Diabetes Care. 2016.39(Suppl 1).Performed By: #### 47137-2 ####[facility] LABIA [id number] [place] [address] [place] AMERICAPotassium [Moles/Vol]4.2 mmol/L Normal3.7-5.1CMercy Health Perrysburg HospitalComment on above:Order Comment: Specimen Type: BLOOD SPECIMENOrdering Facility: [facility] Address:[address] [place], [place] [address]Performed By: #### 18058-9 ####[facility] LABIA [id number] [place] [address] [place] AMERICASodium [Moles/Vol]138 mmol/NLosufa185-779RsphrfkkvMercy Health Perrysburg HospitalComment on above:Order Comment: Specimen Type: BLOOD SPECIMENOrdering Facility: [facility] Address:[address] [place], [place] [address]Performed By: #### 48963-9 ####[facility] LABIA [id number] [place] [address] [place] AMERICAUrea nitrogen [Mass/Vol]8 mg/dLNormal7-21[facility] Comment on above:Order Comment: Specimen Type: BLOOD SPECIMENOrdering Facility: [facility] Address:[address] [place] [address] Performed By: #### 17038-0 ####[facility] LABCLIA [id number] [place] [address] [place] CBC W Auto Differential panel (Bld)on 50-27-1693Yltpvhcjw (Bld) [#/Vol]10*3/uL Normal<0.11CSalem City Hospital on above:Order Comment: Specimen Type: BLOOD SPECIMENOrdering Facility: [facility] Address:[address] [place], [place] [address]Performed By: #### 15374-5 ####[facility] LABCLIA [id number] [place] [address] [place] AMERICABasophils/100 WBC (Bld)0.1 %NormalSalem Regional Medical Center on above:Order Comment: Specimen Type: BLOOD SPECIMENOrdering Facility: [facility] Address:[address] [place], [place] [address]Performed By: #### 49429-0 ####[facility] LABCLIA [id number] [place] [address] [place] Differential cell count method Nom (Bld)AutoNormalClevelCape Fear/Harnett Health Comment on above:Order Comment: Specimen Type: BLOOD SPECIMENOrdering Facility: [facility] Address:[address] [place] [address] Performed By: #### 22176-4 ####[facility] LABCLIA [id number] [place] [address] [place] Eosinophils (Bld) [#/Vol]10*3/uLNormal<0.46[facility] on above:Order Comment: Specimen Type: BLOOD SPECIMENOrdering Facility: [facility] Address:[address] [place], [place] [address]Performed By: #### 16995-6 ####[facility] LABCLIA [id number] [place] [address] [place] AMERICAEosinophils/100 WBC (Bld)0.0 %NormalSalem Regional Medical Center on above:Order Comment: Specimen Type: BLOOD SPECIMENOrdering Facility: [facility] Address:[address] [place], [place] [address]Performed By: #### 29964-5 ####[facility]OSPITALIA [id number] [place] [address] [place] AMERICAErythrocyte distribution width (RBC) [Ratio]13.2 %Ftkuhs57.5-15.0[facility] on above: Order Comment: Specimen Type: BLOOD SPECIMENOrdering Facility: [facility] Address:[address] [place], [place] [address]Performed By: #### 48785- 8 ####[facility] [id number] [address], [place] [address] [place] AMERICAHematocrit (Bld) [Volume fraction]34.6 %Low36.0-46.0[facility] on above:Order Comment: Specimen Type: BLOOD SPECIMENOrdering Facility: [facility] Address:[address] [place], [place] [address]Performed By: #### 97266- 8 ####[facility] HOSPITALIA [id number] [address] STATES OF AMERICAHemoglobin (Bld) [Mass/Vol]11.2 g/dLLow11.5-15.5CSalem City Hospital on above:Order Comment: Specimen Type: BLOOD SPECIMENOrdering Facility: [facility] Address:[address] [place], [place] [address]Performed By: #### 92530-3 ####[facility] [id number] [place] [address] [place] AMERICAImmature granulocytes (Bld) [#/Vol]0.05 10*3/uLNormal<0.10[facility] on above:Order Comment: Specimen Type: BLOOD SPECIMENOrdering Facility: [facility] Address:[address] [place], [place] [address]Performed By: #### 71736- 8 ####[facility] LABCLIA [id number] [place] [address] [place] AMERICAImmature granulocytes/100 WBC (Bld)0.4 %NormalSalem Regional Medical Center on above:Order Comment: Specimen Type: BLOOD SPECIMENOrdering Facility: [facility] Address:[address] [place], [place] [address]Performed By: #### 13162-0 ####[facility] LABIA [id number] [place] [address] [place] AMERICALymphocytes (Bld) [#/Vol]0.87 10*3/uLLow1.00-4.00[facility] on above:Order Comment: Specimen Type: BLOOD SPECIMENOrdering Facility: [facility] Address:[address] [place], [place] [address]Performed By: #### 97152-4 ####[facility] LABIA [id number] [place] [address] [place] OF AMERICALymphocytes/100 WBC (Bld)6.8 % NormalSalem Regional Medical Center on above:Order Comment: Specimen Type: BLOOD SPECIMENOrdering Facility: [facility] Address:[address] [place], [place] [address]Performed By: #### 13373-6 ####[facility] LABIA [id number] [place] [id number] [place] OF AMERICAMC (RBC) [Entitic mass]29.7 voYteaaq97.0-34.0[facility] on above:Order Comment: Specimen Type: BLOOD SPECIMENOrdering Facility: [facility] Address:[address] [place], [place] [address]Performed By: #### 94096-7 ####[facility] LABIA [id number] [place] [address] [place] MCHC (RBC) [Mass/Vol]32.4 g/gPHmbwok37.5-36.0[facility] on above:Order Comment: Specimen Type: BLOOD SPECIMENOrdering Facility: [facility] Address:[address] [place] [address] Performed By: #### 58284-5 ####[facility] LABIA [id number] [place] [address] [place] MCV (RBC) [Entitic vol]91.8 tUXfufvy37.0-100.0[facility] on above:Order Comment: Specimen Type: BLOOD SPECIMENOrdering Facility: [facility] Address:[address] [place] [address] Performed By: #### 43145-7 ####[facility] LABIA [id number] [place] [address] [place] Monocytes (Bld) [#/Vol]0.94 10*3/uLHigh<0.87[facility] on above:Order Comment: Specimen Type: BLOOD SPECIMENOrdering Facility: [facility] Address:[address] [place], [place] [address]Performed By: #### 77411-1 ####[facility] LABIA [id number] [place] [address] [place] AMERICAMonocytes/100 WBC (Bld)7.3 %NormalSalem Regional Medical Center on above:Order Comment: Specimen Type: BLOOD SPECIMENOrdering Facility: [facility] Address:[address] [place], [place] [address]Performed By: #### 87139-1 ####[facility] LABIA [id number] [place] [address] [place] AMERICANeutrophils (Bld) [#/Vol]10.95 10*3/uLHigh1.45-7.50[facility] on above:Order Comment: Specimen Type: BLOOD SPECIMENOrdering Facility: [facility] Address:[address] [place], [place] [address]Performed By: #### 36582-4 ####[facility] LABCLIA [id number] [place] [address] [place] AMERICANeutrophils/100 WBC (Bld)85.4 % NormalSelect Medical Specialty Hospital - Columbus Southment on above:Order Comment: Specimen Type: BLOOD SPECIMENOrdering Facility: [facility] Address:[address] [place], [place] [address]Performed By: #### 56331-6 ####[facility] LABCLIA [id number] [place] [address] [place] AMERICANucleated RBC (Bld) [#/Vol]10*3/uLNormal<0.01[facility] on above:Order Comment: Specimen Type: BLOOD SPECIMENOrdering Facility: [facility] Address:[address] [place], [place] [address]Performed By: #### 92314-4 ####[facility] LABCLIA [id number] [place] [address] [place] Nucleated RBC/100 WBC (Bld) [Ratio]0.0 /100 WBCNormalClevelCape Fear/Harnett Health Comment on above:Order Comment: Specimen Type: BLOOD SPECIMENOrdering Facility: [facility] Address:[address] [place] [address] Performed By: #### 90146-3 ####[facility] LABCLIA [id number] [place] [id number] [place] Platelet mean volume (Bld) [Entitic vol]10.5 fLNormal9.0-12.7ClevelKeenan Private Hospital on above:Order Comment: Specimen Type: BLOOD SPECIMENOrdering Facility: [facility] Address:[address] [place], [place] [address]Performed By: #### 00316-0 ####[facility] LABCLIA [id number] [place] [id number] [place] Platelets (Bld) [#/Vol]309 10*3/uKIsfjtk961-910YdusjzwpsSalem Regional Medical Center on above:Order Comment: Specimen Type: BLOOD SPECIMENOrdering Facility: [facility] Address:[address] [place] [address] Performed By: #### 26225-5 ####[facility]ITAL[facility] [id number] [place] [address] [place] RBC (Bld) [#/Vol]3.77 10*6/uLLow3.90-5.20[facility] on above:Order Comment: Specimen Type: BLOOD SPECIMENOrdering Facility: [facility] Address:[address] [place], [place] [address]Performed By: #### 63256-1 ####[facility] [id number] [address] STATES OF WADSWORTH-RITTMAN HOSPITALWBC (Bld) [#/Vol]12.82 10*3/uLHigh3.70-11.00[facility] on above:Order Comment: Specimen Type: BLOOD SPECIMENOrdering Facility: [facility] Address:[address] [place], [place] [address]Performed By: #### 77787-3 ####[facility] [id number] [place] [id number] [facility] OF AMERICAMRI BRAIN WO/W IVCONon 02-21-2025 MRI BRAIN WO/W IVCON* * *Final Report* * * DATE OF EXAM: Feb 21 2025 11:17AM QBM 0295 - MRI BRAIN WO/W IVCON / PROCEDURE REASON: Brain/PROGRAM DIRECTOR SUBSTANCE ABUSE neoplasm, monitor * * * * Physician [...] resection. No residual mass or pathologic enhancement. Solvent Process Extractor Operator: GUANACO Transcribe Date/Time: Feb 21 2025 11:17A Dictated by : CHIKA RUBY MD This examination was interpreted and the report reviewed and electronically signed by: TOMAS TAMEZ MD on Feb 21 2025 11:58AM EST [id number] Hospital PROGon 02-21-2025 NURSING PROGHNO ID: [id number] Author: MICHELLE BAEZ RN Service: Nursing Author [...] Michelle Baez RN February 21, 2025 10:07 [facility] OhioNALBAING PROGHNO ID: [id number] Author: MICHELLE BAEZ RN Service: Nursing Author [...] Novak DATE: February 21, 2025 TIME: 9:09 [facility] OhioNUTRITIONon [id number] ID: [id number] Author: ZULEMA SUMMERS RD Service: Nutrition Therapy Author Type: Registered Dietitian Type: Nutrition Filed: 02/21/2025 17:21 Note Text: NUTRITION THERAPY SCREEN NOTE SERVICE DATE: 02/21/2025 SERVICE TIME: Start Time: 1305 Care Plan: Continue current diet (carb controlled) Refer to: Detective Sergeant to Follow Discharge Recommendations: Diet Diet: carb [...] Question: Carbohydrate Control Answer: CONSISTENT CARBOHYDRATE 02/20/25 1785 Anthropometrics: Height: 165.1 cm (5' 5 ) [...] (mins): 3 SIGNATURE:Zulema Summers RDN, LD, MS, [facility] PATIENT NAME: Kourtney Novak DATE: February 21, 2025 TIME: 5:20 PMNormalMercy Health Perrysburg HospitalTHERAPY NTon [id number] NT HNO ID: [id number] Author: OLIVIA WOLFF, PT Service: Physical Therapy Author Type: Physical Therapist Type: Therapy (PT/OT/Speech/Resp) Filed: 02/21/2025 12:40 Note Text: Physical Therapy Evaluation Summary SERVICE DATE: 02/21/2025 SERVICE TIME: 1145 to 1208 ROOM: [place] [address] PT 6 Clicks Score: 20 DISCHARGE RECOMMENDATIONS [...] 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 Denies falls. Lives with adult son and brother who both work and are IND in the home. SUBJECTIVE Agreeable to PT THERAPY DIAGNOSIS Reduced mobility-other TREATMENT INTERVENTIONS Evaluation, Gait Training (77151) Timed Code Treatment (minutes): 8 Skilled Treatment [...] Novak DATE: February 21, 2025 TIME: 12:40 PMNormalUniversity Hospitals [facility] POSTPROC EVALon 02-20-2025 ANES POSTPROC EVALHNO ID: [id number] Author: ZARA RAMACHANDRAN DO Service: ? Author Type: Anesthesiologist Type: Anesthesia Postprocedure Evaluation Filed: 02/20/2025 18:52 Note Text: POST ANESTHESIA EVALUATION NOTE : 1975 Procedure Summary Date: 02/20/25 Room / Location: [address] [facility] Anesthesia Start: 1221 Anesthesia Stop: [...] February 20, 2025 TIME: 6:17 PM CSN: [id number] Hospital [facility] PRE-OPon 03-47-9962IEFM PRE-OPHNO ID: [id number] Author: ZARA RAMACHANDRAN DO Service: ? Author Type: Anesthesiologist Type: Anesthesia Preprocedure Evaluation Filed: 02/20/2025 12:11 Note Text: ANESTHESIOLOGY DAY OF SURGERY NOTE : 1975 Procedure Information Date/Time: 02/20/25 1245 Procedures: ORBITOCRANIAL TO ANT CRAN FOSSA W/ SUPRAORB RIDGE OSTEOTOMY AND ELEV FRONTANDTEMP LOBE (Right: Brain) RESECTION LESION BASE OF ANTERIOR CRANIAL FOSSA INTRADURAL W/ DURAL REPAIR (Right: Brain) Location: MAIN [facility] Surgeons: Eirk Pineda MD Estimated body mass index is [...] and consent discussed: yes. Patient / Responsible Republican agrees to proceed: yes Patient / Surrogate [...] February 20, 2025 TIME: 12:10 PM CSN: [id number] Health Perrysburg HospitalARTERIAL BLOOD GASES WITH IONIZED MAGNESIUMon 35-74-0822Jmyk deficit (BldA) [Moles/Vol]-4 mmol/SPiv-9-2HihzdxwunMercy Health Perrysburg HospitalComment on above:Order Comment: Specimen Type: ARTERIAL BLOOD SPECIMENOrdering Facility: [facility] Address: [address] [place], [place] [address]Performed By: #### ALLMG ####[facility] LABIA [id number] [address] STATES OF AMERICACalcium.ionized (Bld) [Mass/Vol] 1.11 mmol/LNormal1.08-1.30Mer[facility] Perrysburg HospitalComment on above:Order Comment: Specimen Type: ARTERIAL BLOOD SPECIMENOrdering Facility: [facility]Address: [address] [place], [place] [address]Performed By: #### ALLMG ####[facility] LABIA [id number] [address] STATES OF AMERICACalcium.ionized adjusted to pH 7.4 (BldA) [Moles/Vol]1.12 mmol/LNormal1.08-1.30[facility] Comment on above:Order Comment: Specimen Type: ARTERIAL BLOOD SPECIMENOrdering Facility: [facility]Address: [address] [place], [place] [address]Performed By: #### ALLMG ####[facility] LABIA [id number] [place] [address] [place] Carboxyhemoglobin (BldA) [Mass fraction]0.6 %Normal0.0-2.0[facility] on above:Order Comment: Specimen Type: ARTERIAL BLOOD SPECIMENOrdering Facility: [facility]Address: [address] [place], [place] [address]Weovux Comment: Carboxyhemoglobin Reference Range for Smokers: 2.0-8.0%Performed By: #### ALLMG ####[facility] LABCLIA [id number] [address] [address] [place] AMERICACO2 (Bld) [Partial pressure]33 mm NySvh99-54FkxjqxthfMercy Health Perrysburg Hospital Comment on above:Order Comment: Specimen Type: ARTERIAL BLOOD SPECIMENOrdering Facility: [facility]Address: [address] [place], [place] [address]Performed By: #### ALLMG ####[facility] LABCLIA [id number] [address] [place] [address] [place] CO2 adjusted to patient's actual temperature (Bld) [Partial pressure]33 mmHgLow 36-46[facility] on above:Order Comment: Specimen Type: ARTERIAL BLOOD SPECIMENOrdering Facility: [facility]Address: [address] [facility] HOSPITALMiguel [place] [id number] By: #### ALLMG ####[facility] LABCLIA [id number] [address] [place] [address] [place] AMERICAGlucose [Mass/Vol]113 mg/cBEiia47-091UywpznojsSalem Regional Medical Center on above:Order Comment: Specimen Type: ARTERIAL BLOOD SPECIMENOrdering Facility: [facility]Address: [address] [place], [place] [address]Nlthhbfhz By: #### ALLMG ####[facility] LABIA [id number] [address] [place] [address] [place] AMERICAHCO3 (Bld) [Moles/Vol]20 mmol/RIza60-61CzrdjyulfSalem Regional Medical Center on above:Order Comment: Specimen Type: ARTERIAL BLOOD SPECIMENOrdering Facility: [facility]Address: [address] [place], [place] [address]Performed By: #### ALLMG ####[facility] LABIA [id number] [place] [address] [place] Hematocrit (Bld) [Volume fraction]32.7 %Low36.0-46.0[facility] Comment on above:Order Comment: Specimen Type: ARTERIAL BLOOD SPECIMENOrdering Facility: [facility]Address: [address] [place] [id number] By: #### ALLMG ####[facility] LABIA [id number] [place] [address] [place] Hemoglobin (Bld) [Mass/Vol]10.6 g/dLLow11.5-15.5CMercy Health Perrysburg Hospital Comment on above:Order Comment: Specimen Type: ARTERIAL BLOOD SPECIMENOrdering Facility: [facility]Address: [address] [place], [place] [address]Performed By: #### ALLMG ####[facility] LABIA [id number] [place] [id number] [place] Lactate [Moles/Vol]1.0 mmol/LNormal0.5-2.2ClevelCape Fear/Harnett HealthComment on above:Order Comment: Specimen Type: ARTERIAL BLOOD SPECIMENOrdering Facility: [facility]Address: [address] [place] [address] Performed By: #### ALLMG ####[facility] LABIA [id number] [place] [id number] [place] AMERICAMagnesium [Moles/Vol]0.42 mmol/LLow0.45-0.60Mer[facility] Perry[facility] HospitalComment on above: Order Comment: Specimen Type: ARTERIAL BLOOD SPECIMENOrdering Facility: [facility]Address: [address] [facility] HOSPITALMiguel [place] [id number] Performed By: #### ALLMG ####[facility] LABIA [id number] [address] [address] [place] AMERICAMethemoglobin (Bld) [Mass fraction]2.1 %High0.0-1.5CSalem City Hospital on above: Order Comment: Specimen Type: ARTERIAL BLOOD SPECIMENOrdering Facility: [facility]Address: [address] [place] [address] Performed By: #### ALLMG ####[facility] LABCLIA [id number] [address] [address] [place] AMERICAOxygen (Bld) [Partial pressure]208 mm KnRlbk43-31SgsnubfquSalem Regional Medical Center on above: Order Comment: Specimen Type: ARTERIAL BLOOD SPECIMENOrdering Facility: [facility]Address: [address] [place] [id number] Performed By: #### ALLMG ####[facility] LABCLIA [id number] [address] [address] [place] AMERICAOxygen adjusted to patient's actual temperature (Bld) [Partial pressure]208 rgQjDhut25-69 [facility] on above:Order Comment: Specimen Type: ARTERIAL BLOOD SPECIMENOrdering Facility: [facility]Address: [address] [place] [id number] By: #### ALLMG ####[facility] LABCLIA [id number] [address] [address] [place] STATES OF AMERICAOxyhemoglobin (BldA) [Mass fraction]96 %Normal 95-98[facility] on above:Order Comment: Specimen Type: ARTERIAL BLOOD SPECIMENOrdering Facility: [facility]Address: [address] [place] [id number] By: #### ALLMG ####[facility] LABCLIA [id number] [address] [address] [place] AMERICApH (Bld)7.41 [pH]Normal7.35-7.45[facility] on above:Order Comment: Specimen Type: ARTERIAL BLOOD SPECIMENOrdering Facility: [facility]Address: [address] [place], [place] [address]Performed By: #### ALLMG ####[facility] LABCLIA [id number] [address] [place] [address] [place] AMERICApH adjusted to patient's actual temperature (Bld)7.68Hbulii7.35-7.45 [facility] on above:Order Comment: Specimen Type: ARTERIAL BLOOD SPECIMENOrdering Facility: [facility]Address: [address] [facility] HOSPITALMiguel [place], [place] [address]Performed By: #### ALLMG ####[facility] LABCLIA [id number] [address] [place] [address] [place] AMERICAPotassium [Moles/Vol]4.2 mmol/LNormal3.5-5.0 [facility] on above:Order Comment: Specimen Type: ARTERIAL BLOOD SPECIMENOrdering Facility: [facility]Address: [address] [place] [id number] By: #### ALLMG ####[facility] LABCLIA [id number] [address] [place] [address] [place] AMERICASodium [Moles/Vol]137 mmol/MUcvoip077-239BbwduyftiSalem Regional Medical Center on above:Order Comment: Specimen Type: ARTERIAL BLOOD SPECIMENOrdering Facility: [facility]Address: [address], [place] [address]Jdnxturfs By: #### ALLMG ####[facility] LABCLIA [id number] [address] [place] [address] [place] AMERICABase deficit (BldA) [Moles/Vol]-3 mmol/OHxv-0-5PkaievuyfSalem Regional Medical Center on above:Order Comment: Specimen Type: ARTERIAL BLOOD SPECIMENOrdering Facility: [facility]Address: [address] [place] [id number] By: #### ALLMG ####[facility] LABCLIA [id number] [address], [place] [address] [place] AMERICACalcium.ionized (Bld) [Mass/Vol]1.20 mmol/LNormal1.08-1.30[facility] on above:Order Comment: Specimen Type: ARTERIAL BLOOD SPECIMENOrdering Facility: [facility]Address: [facility] [place], [place] [address]Performed By: #### ALLMG ####[facility] LABCLIA [id number] [address] AMERICACalcium.ionized adjusted to pH 7.4 (BldA) [Moles/Vol]1.19 mmol/LNormal 1.08-1.30[facility] on above:Order Comment: Specimen Type: ARTERIAL BLOOD SPECIMENOrdering Facility: [facility] Address: [address] [place], [place] [address]Performed By: #### ALLMG ####[facility] LABCLIA [id number] [facility] HOS[facility]ITALD [facility] FLORIDAK [address]ETCarboxyhemoglobin (BldA) [Mass fraction]1.0 %Normal0.0-2.0[facility] on above:Order Comment: Specimen Type: ARTERIAL BLOOD SPECIMENOrdering Facility: [facility]Address: [address] [place], [place] [address]Result Comment: Carboxyhemoglobin Reference Range for Smokers: 2.0-8.0%Performed By: #### ALLMG ####[facility] LABCLIA [id number] [facility] HOSPITALD AVENUECHILDREN'S HOSPITAL LOS ANGELESK L [address] [place] [address] STATES OF AMERICACO2 (Bld) [Partial pressure]37 mm GgQwoyzx12-71JwvtkqazoSalem Regional Medical Center on above:Order Comment: Specimen Type: ARTERIAL BLOOD SPECIMENOrdering Facility: [facility] Address: [address] [place], [place] [address]Performed By: #### ALLMG ####[facility] LABCLIA [id number] [facility]OSPITALD AVENUEDESK L [address] [place] [address] [place] AMERICACO2 adjusted to patient's actual temperature (Bld) [Partial pressure]37 gxMxWrxrcm26-42RgxlbruffMercy Health Perrysburg Hospital Comment on above:Order Comment: Specimen Type: ARTERIAL BLOOD SPECIMENOrdering Facility: [facility]Address: [address] [place], [place] [address]Hakyfcumi By: #### ALLMG ####[facility] LABCLIA [id number] [address] [place] [address] [place] Glucose [Mass/Vol]114 mg/iJFqgp20-674NdqpnxdbaEast [place] Regional HospitalCommclaren lapeer region on above: Order Comment: Specimen Type: ARTERIAL BLOOD SPECIMENOrdering Facility: [facility]Address: [address] [place] [address] Performed By: #### ALLMG ####[facility] LABCLIA [id number] [address] [address] [place] AMERICAHCO3 (Bld) [Moles/Vol]21 mmol/QBag05-12AhkglsuwaMercy Health Perrysburg HospitalComment on above:Order Comment: Specimen Type: ARTERIAL BLOOD SPECIMENOrdering Facility: [facility]Address: [address] [place], [place] [address]Zbkhftpys By: #### ALLMG ####[facility] LABCLIA [id number] [address] [address] [place] AMERICAHematocrit (Bld) [Volume fraction]35.4 %Low36.0-46.0Mer[facility] Health Perrysburg HospitalCommclaren lapeer region on above:Order Comment: Specimen Type: ARTERIAL BLOOD SPECIMENOrdering Facility: [facility]Address: [address] [place], [place] [address]Pukefshxt By: #### ALLMG ####[facility] LABCLIA [id number] [address] [address] [place] AMERICAHemoglobin (Bld) [Mass/Vol]11.5 g/eBQdbidg71.5-15.5CMercy Health Perrysburg HospitalCommclaren lapeer region on above:Order Comment: Specimen Type: ARTERIAL BLOOD SPECIMENOrdering Facility: [facility]Address: [address] [place], [place] [address]Performed By: #### ALLMG ####[facility] LABCLIA [id number] [place] [address] [place] AMERICALactate [Moles/Vol]0.9 mmol/L Normal0.5-2.2CSalem City Hospital on above:Order Comment: Specimen Type: ARTERIAL BLOOD SPECIMENOrdering Facility: [facility] Address: [address] [place], [place] [address]Performed By: #### ALLMG ####[facility] LABCLIA [id number] [place] [address] [place] AMERICAMagnesium [Moles/Vol]0.72 mmol/L High0.45-0.60[facility] on above:Order Comment: Specimen Type: ARTERIAL BLOOD SPECIMENOrdering Facility: [facility] Address: [address] [place], [place] [address]Performed By: #### ALLMG ####[facility] LABCLIA [id number] [place] [address] [place] AMERICAMethemoglobin (Bld) [Mass fraction]1.6 %High0.0-1.5CSalem City Hospital on above:Order Comment: Specimen Type: ARTERIAL BLOOD SPECIMENOrdering Facility: [facility]Address: [address] [place], [place] [address]Performed By: #### ALLMG ####[facility] LABCLIA [id number] [facility] [place] [address] [place] AMERICAOxygen (Bld) [Partial pressure] 299 mm WpSmrs58-90DgbwuebyhSalem Regional Medical Center on above:Order Comment: Specimen Type: ARTERIAL BLOOD SPECIMENOrdering Facility: [facility]Address: [facility] [place], [place] [address]Performed By: #### ALLMG ####[facility] LABCLIA [id number] [place] [address] [place] AMERICAOxygen adjusted to patient's actual temperature (Bld) [Partial pressure]299 jjKgFike00-07DyygrrahrSalem Regional Medical Center on above:Order Comment: Specimen Type: ARTERIAL BLOOD SPECIMENOrdering Facility: [facility]Address: [address] [place], [place] [address]Decedvlnk By: #### ALLMG ####[facility] LABCLIA [id number] [address] [place] [address] [place] AMERICAOxyhemoglobin (BldA) [Mass fraction]97 %Psvnjb23-31TnoxuaninSalem Regional Medical Center on above:Order Comment: Specimen Type: ARTERIAL BLOOD SPECIMENOrdering Facility: [facility]Address: [address] [place] [id number] By: #### ALLMG ####[facility] LABCLIA [id number] [address] [place] [address] [place] AMERICApH (Bld)7.38 [pH]Normal7.35-7.45[facility] on above:Order Comment: Specimen Type: ARTERIAL BLOOD SPECIMENOrdering Facility: [facility]Address: [address] [place] [address] Performed By: #### ALLMG ####[facility] LABCLIA [id number] [address] [place] [address] [place] AMERICApH adjusted to patient's actual temperature (Bld)7.19Bygnwl4.35-7.45[facility] Comment on above:Order Comment: Specimen Type: ARTERIAL BLOOD SPECIMENOrdering Facility: [facility]Address: [address] [place], [place] [address]Kgfrwslks By: #### ALLMG ####[facility] LABCLIA [id number] [address] [place] [address] [place] Potassium [Moles/Vol]4.2 mmol/LNormal3.5-5.0[facility] on above:Order Comment: Specimen Type: ARTERIAL BLOOD SPECIMENOrdering Facility: [facility]Address: [address] [place] [address] Performed By: #### ALLMG ####[facility] LABCLIA [id number] [address] [address] [place] OF AMERICASodium [Moles/Vol]139 mmol/IYudgss678-953UougiygkpMercy Health Perrysburg HospitalComment on above: Order Comment: Specimen Type: ARTERIAL BLOOD SPECIMENOrdering Facility: [facility]Address: [address] [place] [address] Performed By: #### ALLMG ####[facility] LABCLIA [id number] [address] [address] [place] OF AMERICABasic metabolic 2000 panelon 29-11-6748Jpsqz gap [Moles/Vol]12 mmol/LNormal8-15 [facility] on above:Order Comment: Specimen Type: BLOOD SPECIMENOrdering Facility: [facility] Address:[address] [place], [place] [address]Performed By: #### 12955-6 ####[facility] LABCLIA [id number] [address] [address] [place] OF AMERICACalcium [Mass/Vol]9.4 mg/dLNormal8.5-10.2CMercy Health Perrysburg Hospital Comment on above:Order Comment: Specimen Type: BLOOD SPECIMENOrdering Facility: [facility] Address:[address] [place] [address] Performed By: #### 13444-3 ####[facility] LABCLIA [id number] [address] [address] [place] Chloride [Moles/Vol]105 mmol/RAuyvye15-494EvvrnwywcSalem Regional Medical Center on above:Order Comment: Specimen Type: BLOOD SPECIMENOrdering Facility: [facility] Address:[address] [place], [place] [address]Performed By: #### 52239-4 ####[facility] LABCLIA [id number] [address] [address] [place] OF AMERICACO2 [Moles/Vol]20 mmol/BOvk10-33UxycvsmlrSalem Regional Medical Center on above:Order Comment: Specimen Type: BLOOD SPECIMENOrdering Facility: [facility] Address:[address] [place], [place] [address]Performed By: #### 59483-9 ####[facility] LABIA [id number] [place] [address] [place] AMERICACreatinine [Mass/Vol]0.90 mg/dLNormal0.58-0.96[facility] on above:Order Comment: Specimen Type: BLOOD SPECIMENOrdering Facility: [facility] Address:[address] [place], [place] [address]Performed By: #### 20203-0 ####[facility] LABIA [id number] [address] OF AMERICACreatinine and Glomerular filtration rate.predicted panel (S/P/Bld)80 mL/min/1.73m???Normal>=60[facility] on above:Order Comment: Specimen Type: BLOOD SPECIMENOrdering Facility: [facility] Address:[address] [place], [place] [address]Result Comment: Estimated Glomerular Filtration Rate (eGFR) is [...] not accurately reflect actual GFR.Performed By: #### 06169-5 ####[facility] LABIA [id number] [place] [address] [place] AMERICAGlucose [Mass/Vol]94 mg/dLNormal 74-99[facility] on above:Order Comment: Specimen Type: BLOOD SPECIMENOrdering Facility: [facility] Address:[address] [place], [place] [address]Result Comment: The [place] Diabetes Association (ADA) provides guidance for cutoff [...] Standards of Medical Care in Diabetes 2016, [place] Diabetes Association. Diabetes Care. 2016.39(Suppl 1).Performed By: #### 09996-6 ####[facility] LABCLIA [id number] [place] [address] [place] AMERICAPotassium [Moles/Vol]4.1 mmol/L Normal3.7-5.1CMercy Health Perrysburg HospitalComment on above:Order Comment: Specimen Type: BLOOD SPECIMENOrdering Facility: [facility] Address:[address] [place], [place] [address]Performed By: #### 32369-6 ####[facility] LABIA [id number] [place] [address] [place] AMERICASodium [Moles/Vol]137 mmol/OYnumle974-736OgixcnbogMercy Health Perrysburg HospitalComment on above:Order Comment: Specimen Type: BLOOD SPECIMENOrdering Facility: [facility] Address:[address] [place], [place] [address]Performed By: #### 77876-4 ####[facility] LABIA [id number] [place] [address] [place] AMERICAUrea nitrogen [Mass/Vol]11 mg/dLNormal7-21[facility] Comment on above:Order Comment: Specimen Type: BLOOD SPECIMENOrdering Facility: [facility] Address:[address] [place] [address] Performed By: #### 01874-6 ####[facility] LABCLIA [id number] [address] OF [facility] OPERATIVE NOon 87-24-2355QJPFIPQSY NOHNO ID: [id number] Author: ERIK PINEDA MD Service: Neurosurgery Author Type: Physician Type: Operative Report Filed: 02/21/2025 09:26 Note Text: OPERATIVE/PROCEDURE REPORT LOG ID: [id number] SURGERY/PROCEDURE DATE: 02/20/2025 INCISION/PROCEDURE START TIME: 1:29 PM INCISION CLOSE/PROCEDURE END TIME: 4:07 PM SURGEON(S)/PROCEDURALIST(S) AND ACTUARIAL TRAINEE(S): Surgeons and Role: * Erik Pineda MD [...] the OR table. The neuronavigation system using [employer] was then registered and accuracy was confirmed using external anatomical landmarks and previous imaging in the PACS system. IV antibiotics, steroids, and Keppra were then administered. The patient was then prepped and draped in standard fashion for cranial surgery. A timeout was then performed in accordance with [facility] operative protocols. A right frontotemporal craniotomy for [...] was then marked with a bone pencil. Conesus holes were then placed in strategic places. Bony fragments were freed. The underlying dura was then stripped using a #3 [place]. Using a high speed air drill with [...] 02/20/2025 3:13 PM IMPLA (more content not included)...NormalMercy Health Perrysburg HospitalPathology biopsy report Alexis (Tiss)on [id number] DISCLAIMERNormACMC Healthcare System Glenbeighment on above:Order Comment: Specimen Type: TISSUE SPECIMENOrdering Facility: [facility] Address: [address] [place], [place] [address]Result Comment: Laboratory Developed Test (LDT) Disclaimer: Performance characteristics of immunohistochemical, immunofluorescent, and chromogenic in-situ hybridization tests have been determined by the performing laboratory within [facility]'s [facility] Pathology and Laboratory Medicine Department ([facility], [facility], [facility], [facility], [facility], [facility], [facility], or [facility][1]) in a manner consistent with CLIA requirements. One or more of these tests may not have been cleared or approved by the FDA. RT-PLM is regulated under CLIA as qualified to perform high- complexity testing. These tests are used for clinical purposes. These should not be regarded asinvestigational or for research. Positive and negative controls stain appropriately.Performed By: #### 03975-5 ####[facility] LABCLIA [id number] [address]CASE REPORTNormVeterans Health Administration on above:Order Comment: Specimen Type: TISSUE SPECIMENOrdering Facility: [facility] Address: [address] [place] [address]Lvwplc Comment: Surgical Pathology Report Case: [id number] Authorizing Provider: Erik Pineda MD Collected: 02/20/2025 03:13 PM Ordering Location: Admitting Received: 02/20/2025 04:45 PM Pathologist: Brody Olvera MD Specimen: Brain, Resection, right middle sphenoid wing tumorPerformed By: #### 27292-4 ####[facility] LABCLIA [id number] [address] [place] [address] [facility] OF [facility]ITTMAN HOSPITALCLINICAL HISTORYNormal [facility] on above:Order Comment: Specimen Type: TISSUE SPECIMENOrdering Facility: [facility] Address: [address] [place], [place] [address]Result Comment: Pre-op diagnosis: Intracranial meningioma (HCC) [D32.0] Preop testing [Z01.818]Performed By: #### 08807-7 ####[facility] LABIA [id number] [address] [place] [address] [facility] OF [facility]IT[facility]AN HOSPITALDIAGNOSIS COMMENTImmunohistochemical staining of the tumor with antibodies to SSTR2a and MO was performed on block A1. The tumor shows positive staining with both antibodies, consistent with the diagnosis. A Ki-67 index of approximately 2-3% is focally noted.NormalSalem Regional Medical Center on above:Order Comment: Specimen Type: TISSUE SPECIMENOrdering Facility: [facility] Address: [address] [place], [place] [address]Performed By: #### 06863-3 ####[facility] LABIA [id number] [address] [place] [address] [facility] HOSPITALFINAL DIAGNOSISNormal [facility] on above:Order Comment: Specimen Type: TISSUE SPECIMENOrdering Facility: [facility] Address: [address] [place], [place] [address]Result Comment: A. Right middle sphenoid wing region, excision: - Morphologically consistent with meningothelial meningioma, WHO grade 1 at 1536 EDT Performed By: #### 14546-0 ####[facility] LABIA [id number] [address] [place] [address] [place] FINAL PERFORMING LABNormVeterans Health Administration on above:Order Comment: Specimen Type: TISSUE SPECIMENOrdering Facility: [facility] Address: [address] [place], [place] [address]Result Comment: Diagnostic interpretation performed at: [facility], [address] [place] [address], [facility] [place] [address] CLIA# [id number] Transmission Line Engineer: JOANIE Bruceerformed By: #### 83491-2 ####[facility] LABIA [id number] [address] OF [facility]RITTMAN HOSPITALGROSS DESCRIPTIONNormalCMercy Health Perrysburg Hospital Comment on above:Order Comment: Specimen Type: TISSUE SPECIMENOrdering Facility: [facility] Address: [address] [place], [place] [address]Result Comment: A. Brain, Resection Received in formalin, labeled as brain resection, right middle sphenoid wing tumor is a single bryant-brown irregular rubbery tissue measuring 2.1 x 1.3 x 0.5 cm. Sectioning reveals bryant-davidson homogenous cut surfaces. Totally submitted in cassettes A1-A2. CG February 21, 2025 10:13 AM Gross examination performed at [facility], [address] [place], [place] [address]Performed By: #### 02575-9 ####[facility] LABIA [id number] [address] Kathy 08-14-9141MBUGJipyzuewq (NSCAMN) KOURTNEY NOVAK ([id number]) 1975 F Date Time Provider Department 02/17/25 SHAKILA PHILLIPS [facility] During your visit today, we recorded [...] postop follow up appts. Shakila Phillips RN, [place] Allergies As of Date: 02/17/2025 (No Known [...] 02/14/2025 Encounter Status:Closed by SHAKILA PHILLIPS on 02/17/25NoLouis Stokes Cleveland VA Medical CenterParis [id number] (PALORA) KOURTNEY NOVAK ([id number]) 1975 F Date Time Provider Department 02/15/25 MEHUL MATRIN During your visit today, we recorded the following information about you: Mehul Martin APRN.CNP 02/15/2025 8:15 AM Signed Please call patient. Lab did not draw Conabo, A1C, or BMP. Please have her go to closest [facility] lab to have them drawn. She can go to [facility] cancer center in [place] if that is best for her thank you. Thank you, MAMADOU Boyer Autumn, LPN 02/15/2025 8:22 AM Signed I called and spoke with patient. Relayed below message; denies questions at this time. Will go to [facility] CHRISTENSEN. Barbara Rosenthal LPN February 15, 2025 8:22 AM Mehul Martin APRN.SEAT INSTALLER 02/17/2025 4:16 PM Signed Lab still did [...] 02/14/2025 Encounter Status:Closed by BARBARA ROSENTHAL on 02/15/25NoSt. Elizabeth HospitalCONFIR BLOOD TYPEon 37-44-7386PDBFDeaetfJezzhywsgChildren's Hospital for Rehabilitation Comment on above:Order Comment: Specimen Type: BLOOD SPECIMENOrdering Facility: [facility] Address:[address] [place] [address] Performed By: #### CONABO ####CC MAIN BLOOD BANKCLIA [id number] [place] [address] [place] AMERICARh Nom (Bld)Negative NormalMercy Health Perrysburg HospitalComment on above:Order Comment: Specimen Type: BLOOD SPECIMENOrdering Facility: [facility] Address:[address] [place], [place] [address]Performed By: #### CONABO ####CC [facility] BLOOD BANKIA [id number] [address] OF MQWPOKHShU5s (Bld)on 78-51-3642Niyjjbd glucose Estimated from glycated hemoglobin (Bld) [Mass/Vol]108 mg/dLNormalCSalem City Hospital on above:Order Comment: Specimen Type: BLOOD SPECIMENOrdering Facility: [facility] Address:[address] [place], [place] [address]Result Comment: eAG: (Estimated average glucose) is a calculated value from HgbA1c and is professional healthcare representative of the average blood glucose level in the last 2-3 month period. Performed By: #### 09821-6 ####[facility] [id number] [address] STATES [facility] HbA1c (Bld) [Mass fraction]5.4 %Normal4.3-5.6CSalem City Hospital on above:Order Comment: Specimen Type: BLOOD SPECIMENOrdering Facility: [facility] Address:[address] [place], [place] [address]Result Comment: [place] Diabetes Association guidelines indicate that patients with HgbA1c in the range 5.7-6.4% are at increased risk for development of diabetes, and intervention by lifestyle modification may be beneficial. HgbA1c greater or equal to 6.5% is considered diagnostic of diabetes.Performed By: #### 71248-5 ####[facility] LABIA [id number] [place] [id number] [facility]ENTERT SerPl-cCncon 33-72-8182FLN [Catalytic activity/Vol]27 U/LNormal7-38[facility] on above:Order Comment: Specimen Type: BLOOD SPECIMENOrdering Facility: [facility] Address:[address] [place], [place] [address]Performed By: #### 1742-6, 1919-8, 1987- ####[facility] LABIA [id number] [address] STATES [facility] CENTERAST SerPl-cCnc on 00-62-4550MSZ [Catalytic activity/Vol]20 U/BLxkgfd17-19YgvpcjgmmSalem Regional Medical Center on above:Order Comment: Specimen Type: BLOOD SPECIMENOrdering Facility: [facility] Address:[address] [place], [place] [address]Performed By: #### 1742-6, 1920-8, 1987- ####[facility] LABCLIA [id number] [facility]IA HOSPITALD AVENUEDESK [address]CBC panel Auto (Bld)on 28-27-5043Eluycziqxcf distribution width (RBC) [Ratio]13.4 %Ulfeff81.5-15.0[facility] on above:Order Comment: Specimen Type: BLOOD SPECIMENOrdering Facility: [facility] Address:[address] [place], [place] [address]Performed By: #### 77499- 2, 4537-7 ####[facility] LABCLIA [id number] [facility] HOSPITALD AV ENUEDESK [address] ST[address]ETHematocrit (Bld) [Volume fraction]39.2 %Fwklda70.0-46.0[facility] on above:Order Comment: Specimen Type: BLOOD SPECIMENOrdering Facility: [facility] Address:[address] [place], [place] [address]Performed By: #### 26740- 2, 4537-7 ####[facility] LABCLIA [id number] [facility]IAL HOSPITALLID AV ENUEDESK [address] ST[address]ETHemoglobin (Bld) [Mass/Vol]12.6 g/cWEfxvmm26.5-15.5CSalem City Hospital on above: Order Comment: Specimen Type: BLOOD SPECIMENOrdering Facility: [facility] Address:[address] [place], [place] [address]Performed By: #### 71889- 2, 4537-7 ####[facility] LABCLIA [id number] [address] (RBC) [Entitic mass] 29.9 qxOjzowe98.0-34.0[facility] on above:Order Comment: Specimen Type: BLOOD SPECIMENOrdering Facility: [facility] Address:[address] [place], [place] [address]Performed By: #### 45261-9, 4536-7 ####[facility] LABIA [id number] [address] (RBC) [Mass/Vol]32.1 g/dL Cpkrcl59.5-36.0[facility] on above:Order Comment: Specimen Type: BLOOD SPECIMENOrdering Facility: [facility] Address:[address] [place], [place] [address]Performed By: #### 66681-2, 7 ####[facility] LABIA [id number] [address]V (RBC) [Entitic vol]93.1 fL Jlqfhh31.0-100.0[facility] on above:Order Comment: Specimen Type: BLOOD SPECIMENOrdering Facility: [facility] Address:[address] [place], [place] [address]Performed By: #### 26119-2, 4537-03 ####[facility] LABIA [id number] [address] RBC (Bld) [#/Vol] 10*3/uLNormal<0.01[facility] on above:Order Comment: Specimen Type: BLOOD SPECIMENOrdering Facility: [facility] Address:[address] [place], [place] [address]Performed By: #### 15701-2, 4537-03 ####[facility] LABIA [id number] [place] AVENUEDES[id number], [place] [address] [place] AMERICAPlatelet mean volume (Bld) [Entitic vol]10.9 fLNormal9.0-12.7CSalem City Hospital on above: Order Comment: Specimen Type: BLOOD SPECIMENOrdering Facility: [facility] Address:[address] [place], [place] [address]Performed By: #### 22588- 2, 4537-7 ####[facility] LABCLIA [id number] [facility] [place] [address] [place] AMERICAPlatelets (Bld) [#/Vol] 329 10*3/rSMsepib053-843DtbakfhkgSalem Regional Medical Center on above:Order Comment: Specimen Type: BLOOD SPECIMENOrdering Facility: [facility] Address:[address] [place], [place] [address]Performed By: #### 53525- 2, 4537-7 ####[facility] LABCLIA [id number] [facility] [place] [address] [facility] OF AMERICARBC (Bld) [#/Vol]4.21 10*6/uLNormal3.90-5.20[facility] on above:Order Comment: Specimen Type: BLOOD SPECIMENOrdering Facility: [facility] Address:[address] [place], [place] [address]Performed By: #### 85491-6, 4537-7 ####[facility] LABCLIA [id number] [place] [address] [place] AMERICAWBC (Bld) [#/Vol]7.27 10*3/uL Normal3.70-11.00[facility] on above:Order Comment: Specimen Type: BLOOD SPECIMENOrdering Facility: [facility] Address:[address] [place], [place] [address]Performed By: #### 71392-8, 4537-7 ####[facility] LABCLIA [id number] [place] [id number] [facility] 87-06-4385RVS [Mass/Vol]0.6 mg/dLNormal<0.9CSalem City Hospital on above:Order Comment: Specimen Type: BLOOD SPECIMENOrdering Facility: [facility] Address:[address] [place], [place] [address]Performed By: #### 1742- 6, 192-8, 1988-01 ####[facility] [id number] [address]ETECG01on 02-14-2025 RSS51Aceoayvzrxy Rate : 77 BPM Atrial Rate : 77 BPM P-R Interval : 138 ms QRS Duration : 82 ms Q-T Interval : 386 ms QTC Calculation(Bazett) : 436 ms Calculated P Linden : 36 degrees Calculated R Linden : 47 degrees Calculated T Linden : 47 degrees NORMAL SINUS RHYTHM NORMAL ECG Confirmed by DI YORK M.D. ([id number]) on 02/14/2025 1:23:03 PM NAME : KOURTNEY NOVAK PID : [id number] : 1975 Gender : Female Race : ORD : Procedure Date : Feb 14 2025 07:00:27 Edit Date : Feb 14 2025 13:23:06 Diagnosis: NORMAL SINUS RHYTHM NORMAL ECG Confirmed by DI YORK M.D. ([id number]) on 02/14/2025 1:23:03 PM Test Reason : Location : 145 : [facility] Overread By : DI YORK M.D. Edited By : DI YORK M.D. Referred By : ERIK PINEDA Acquired by : Carlos romeroMercy Health Perrysburg HospitalESR Westergren method (Bld) [Velocity]on 50-67-2286BBR (Bld) [Velocity]2 mm/hNormal0-20[facility] on above:Order Comment: Specimen Type: BLOOD SPECIMENOrdering Facility: [facility] Address:[address] [place], [place] [address]Performed By: #### 73181-3, 4537-7 ####[facility] [id number] [address] AMERICAHISTORY PHYSICALon 80-43-8320EZCNROX PHYSICALHNO ID: [id number] Author: MEHUL MARTIN APRN.CNP Service: ? Author [...] of breath with the above physical activity. NOQ9OA8-XCQh Score: Age: <65 Sex: female CHF history: No Hypertension history: No Stroke/TIA/thromboembolism history: No Vascular disease history: No Diabetes history: Yes YWM7CU2-HFJw Score: 2 ARISCAT Score: Age: <=50 Preoperative [...] has meningioma that was (more content not included)...NormalMount St. [facility] Brain WO and W contrast Lasha 76-77-3458PEFTEHNTZQ: Findings across multiple examinations suggesting an intraosseous meningioma centered in the right sphenoid buttress and slow progressive enlargement of the contiguous protuberant anterior right temporal extra-axial nodule looking back to the exam in November 2015. No acute abnormalities. Solvent Process Extractor Operator: PSCB Transcribe Date/Time: Feb 14 2025 10:01A Dictated by : SEAN BLOCK MD This examination was interpreted and the report reviewed and electronically signed by: SEAN BLOCK MD on Feb 14 2025 10:22AM [facility] DIVISION OF RADIOLOGY* * *Final Report* * * DATE OF EXAM: Feb 14 2025 10:37AM [facility] - MRI BRAIN WO/W IVCON / [...] tissue mass extending into the of the district medical examiner or parapharyngeal spaces. The soft tissue planes of the, retropharyngeal, and prevertebral spaces are maintained. The visualized parotid glands are normal in appearance. Nasopharynx/Oropharynx: The nasopharynx and oropharynx are normal in appearance. DIVISION OF RADIOLOGYProvider, [facility] [place] - 02/14/2025 * * *Final Report* * [...] tissue mass extending into the of the district medical examiner or parapharyngeal spaces. The soft tissue planes [...] exam in November 2015. No acute abnormalities. Solvent Process Extractor Operator: GUANACO Transcribe Date/Time: Feb 14 2025 10:01A Dictated by : SEAN BLOCK MD This examination was interpreted and the report reviewed and electronically signed by: SEAN BLOCK MD on Feb 14 2025 10:22AM EST [facility] SystemRad[facility] Study observation (narrative)[facility] Brain WO and W contrast IVOrdered By: Ccf Provider on 91-03-3717Irieatysp ClinicMRI BRAIN WO/W IVCONon 54-22-0943XQE BRAIN WO/W IVCON* * *Final Report* * * DATE OF EXAM: Feb 14 2025 10:37AM [facility] 0[facility] - MRI BRAIN WO/W IVCON / [...] tissue mass extending into the of the district medical examiner or parapharyngeal spaces. The soft tissue planes [...] exam in November 2015. No acute abnormalities. Solvent Process Extractor Operator: [facility]B Transcribe Date/Time: Feb 14 2025 10:01A Dictated by : SEAN BLOCK MD This examination was interpreted and the report reviewed and electronically signed by: SEAN BLOCK MD on Feb 14 2025 10:22AM EST [id number] Health Perrysburg HospitalSTAPHYLOCOCCUS AUREUS AND MRSA SCREEN, PCR, NASALon 02-14-2025S. aureus and MRSA panel RADHA+probe (Nose)Not detectedNormalNot DetectedSalem Regional Medical Center on above:Order Comment: Specimen Type: SWABOrdering Facility: [facility] Address: [address] [place], [place] [address]Performed By: #### SAPCR ####[facility] LABCLIA [id number] [place] [address] [place] AMERICATYPE AND SCREEN,30 DAYon 33-50-8535UTGCRxwltyBkfdhqaxbSalem City Hospital on above:Order Comment: Specimen Type: BLOOD SPECIMENOrdering Facility: [facility] Address:[address] [place], [place] [address]Performed By: #### [id number] ####CC [facility] BLOOD BANKCLIA [id number] [place] [address] [place] OF AMERICARh Nom (Bld)NegativeNormalCMercy Health Perrysburg Hospital Comment on above:Order Comment: Specimen Type: BLOOD SPECIMENOrdering Facility: [facility] Address:[address] [place] [address] Performed By: #### TSCR30 ####CC MAIN BLOOD BANKCLIA [id number] [place] [address] [place] AMERICAUS renal BIon 05-36-6586BL renal [facility] [place] [address] [place] [address] Ultrasound Report Signed Patient: Kourtney Novak MR#: [id number] : 1975 Acct:[id number] Age/Sex: 49 / F ADM Date: 02/10/25 Loc: Room: Type: [facility] Attending Dr: Jesus Gonzalez MD Ordering Provider: [...] Gray M.D. 02/10/2025 4:44 PM Dictation Location: [place] [address] Tech: Vani Olivia Transcribed By: [facility] 02/10/25 1644 Dictated By: George Gray DO 02/10/25 164 Signed By: 02/10/25 1644[facility] Physician GroupCNOVleyla 41-04-0939ZSOSOymhjp Visit (RHEUAV) KOURTNEY NOVAK ([id number]) 1975 F Date Time Provider Department 12/28/24 [...] good air moveme (more content not included)...Normal [facility] HospitalX-ray reportOrdered By: Lincoln Hoffmann on 50-43-0404Gujry reportKETTERING HEALTH PRE[facility] [address] [place] [id number] XRay Report Signed Patient: Kourtney Novak MR#: [id number] : 1975 Acct:[id number] Age/Sex: 49 / F ADM Date: 5 [place] [facility] [place]: Type: [facility] Attending Dr: Elyssa Gomes MD Copies to: [...] Lincoln Hoffmann M.D.12/27/2024 4:47 PM Dictation Location: [place] [address] Transcribed By: [facility] 12/27/241646 Dictated By: Lincoln Hoffmann MD 12/27/241642 Signed By: 12/27/241646 [facility] Work Phone: XR wrist RT min 3V*on 47-40-2714QY wrist RT min 3V* [facility] [address] [place] [address] XRay Report Signed Patient: Kourtney Novak MR#: [id number] : 1975 Acct:[id number] Age/Sex: 49 / F ADM Date: 12/27/24 [place]: [facility] [place]: Type: [facility] Attending Dr: Elyssa Gomes MD Copies to: [...] Lincoln Hoffmann M.D.12/27/2024 4:47 PM Dictation Location: [place] [address] Transcribed By: [facility] 12/27/241646 Dictated By: Lincoln Hoffmann MD 12/27/241642 Signed By: 12/27/24 164[facility] Physician GroupBasophils Auto (Bld) [#/Vol] Ordered By: Jesus Gonzalez on 06-87-9856Tcgejymyc (Bld) [#/Vol]Automated basophil count0.0-0.2FJ.W. Ruby Memorial HospitalBasophils/100 WBC Auto (Bld)Ordered By: Jesus Gonzalez on 07-23-8573Ykvghskiy/100 WBC (Bld)Automated basophil %. [facility]Complete Blood Count Auto Diffon 12-13-2024 Basophils (Bld) [#/Vol]0.1 10*3/uLNormal0.0-0.2[facility] Comment on above:Result Comment: PERFORMED BY: [address] [place] [address] PATHOLOGIST SPIN INSTRUCTOR PAKO RAMACHANDRAN M.D.Performed By: #### LIPID, [id number], TSH3, T3F, FE PRO, [id number], T4T, MG, A1C WTH eA, CBC, PHOS #### [facility] [address] [place] [address] #### INSULIN #### [facility] ,Basophils/100 WBC (Bld)1.0 %Normal.[facility]ician [facility] HospitalComment on above:Performed By: #### LIPID, [id number], TSH3, T3F, FE PRO, [id number], T4T, MG, A1C WTH eA, CBC, PHOS #### [facility] [address] [place] [address] [place] #### INSULIN #### [facility] ,Eosinophils (Bld) [#/Vol]0.2 10*3/uLNormal0.0-0.45[facility] Comment on above:Performed By: #### LIPID, [id number], TSH3, T3F, FE PRO, [id number], T4T, MG, A1C WTH eA, CBC, PHOS #### [address] #### INSULIN #### [facility] ,Eosinophils/100 WBC (Bld)2.7 %Normal.[facility] Physician GroupComment on above:Performed By: #### LIPID, [id number], TSH3, T3F, FE PRO, [id number], T4T, MG, A1C WTH eA, CBC, PHOS #### [address] #### INSULIN #### [facility] ,Erythrocyte distribution width (RBC) [Ratio]13.3 %Uktdty09.9-15.3[facility] Physician GroupComment on above:Performed By: #### LIPID, [id number], TSH3, T3F, FE PRO, [id number], T4T, MG, A1C WTH eA, CBC, PHOS #### [address] #### INSULIN #### [facility] ,Hematocrit (Bld) [Volume fraction]38.5 %Krbvmh99.0-46.4The [facility] Physician GroupComment on above:Performed By: #### LIPID, [id number], TSH3, T3F, FE PRO, [id number], T4T, MG, A1C WTH eA, CBC, PHOS #### [place] [address] [place] #### INSULIN #### [facility] ,Hemoglobin (Bld) [Mass/Vol]12.7 g/lNQepwsc04.8-15.4The [facility] Physician GroupComment on above:Performed By: #### LIPID, [id number], TSH3, T3F, FE PRO, [id number], T4T, MG, A1C WTH eA, CBC, PHOS #### [place] [address] [place] #### INSULIN #### [facility] ,Lymphocytes (Bld) [#/Vol]2.6 10*3/uLNormal1.00-4.8[facility] Comment on above:Performed By: #### LIPID, [id number], TSH3, T3F, FE PRO, [id number], T4T, MG, A1C WTH eA, CBC, PHOS #### [place] [address] [place] #### INSULIN #### [facility] ,Lymphocytes/100 WBC (Bld)30.8 %Normal.[facility] Physician GroupComment on above:Performed By: #### LIPID, [id number], TSH3, T3F, FE PRO, [id number], T4T, MG, A1C WTH eA, CBC, PHOS #### [address] #### INSULIN #### [facility] ,MCH (RBC) [Entitic mass]30.2 heMpqfxg71.7-34.3[facility] Comment on above:Performed By: #### LIPID, [id number], TSH3, T3F, FE PRO, [id number], T4T, MG, A1C WTH eA, CBC, PHOS #### [place] [address] [place] #### INSULIN #### [facility] ,MCV (RBC) [Entitic vol]91.4 oNEgyijm42-770Pli [facility] Physician GroupComment on above:Performed By: #### LIPID, [id number], TSH3, T3F, FE PRO, [id number], T4T, MG, A1C WTH eA, CBC, PHOS #### [place] [address] [place] #### INSULIN #### [facility] ,Mean Corpuscular HGB Conc33.1 g/qTPmfhlp39.0-35.0[facility] Comment on above:Performed By: #### LIPID, [id number], TSH3, T3F, FE PRO, [id number], T4T, MG, A1C WTH eA, CBC, PHOS #### [facility] [address] [place] [address] [place] #### INSULIN #### [facility] ,Monocytes (Bld) [#/Vol]0.9 10*3/uLHigh0.0-0.8[facility] Comment on above:Performed By: #### LIPID, [id number], TSH3, T3F, FE PRO, [id number], T4T, MG, A1C WTH eA, CBC, PHOS #### [address] #### INSULIN #### [facility] ,Monocytes/100 WBC (Bld)11.1 %Normal.[facility] Physician GroupComment on above:Performed By: #### LIPID, [id number], TSH3, T3F, FE PRO, [id number], T4T, MG, A1C WTH eA, CBC, PHOS #### [place] [address] [place] #### INSULIN #### [facility] ,Neutrophils (Bld) [#/Vol]4.6 10*3/uLNormal1.8-7.7[facility] Comment on above:Performed By: #### LIPID, [id number], TSH3, T3F, FE PRO, [id number], T4T, MG, A1C WTH eA, CBC, PHOS #### [facility] [address] [place] [address] [place] #### INSULIN #### [facility] ,Neutrophils/100 WBC (Bld)54.4 %Normal.The [facility] Physician GroupComment on above:Performed By: #### LIPID, [id number], TSH3, T3F, FE PRO, [id number], T4T, MG, A1C WTH eA, CBC, PHOS #### [facility] [address] [place] [address] #### INSULIN #### [facility] ,NRBC%0.1 /100{WBC}Normal0-0.5The [facility] Physician GroupComment on above: Performed By: #### LIPID, [id number], TSH3, T3F, FE PRO, [id number], T4T, MG, A1C WTH eA, CBC, PHOS #### [facility] [address] [place] [address] [place] #### INSULIN #### [facility] ,Platelet mean volume (Bld) [Entitic vol]8.6 fLNormal6.3-10.7The [facility] Physician GroupComment on above:Performed By: #### LIPID, [id number], TSH3, T3F, FE PRO, [id number], T4T, MG, A1C WTH eA, CBC, PHOS #### [place] [address] [place] #### INSULIN #### [facility] ,Platelets (Bld) [#/Vol]372 10*3/qLXhdgyb096-810Ctr [facility] Comment on above:Performed By: #### LIPID, [id number], TSH3, T3F, FE PRO, [id number], T4T, MG, A1C WTH eA, CBC, PHOS #### [place] [address] [place] #### INSULIN #### [facility] ,RBC (Bld) [#/Vol]4.22 10*6/uLNormal3.60-5.00[facility] Comment on above:Performed By: #### LIPID, [id number], TSH3, T3F, FE PRO, [id number], T4T, MG, A1C WTH eA, CBC, PHOS #### [address] #### INSULIN #### [facility] ,WBC (Bld) [#/Vol]8.5 10*3/uLNormal3.8-11.6The [facility] Physician GroupComment on above:Performed By: #### LIPID, [id number], TSH3, T3F, FE PRO, [id number], T4T, MG, A1C WTH eA, CBC, PHOS #### [address] #### INSULIN #### [facility] ,Eosinophils Auto (Bld) [#/Vol]Ordered By: Jesus Gonzalez on 09-90-0300Wdnwewykpdz (Bld) [#/Vol]Automated eosinophil count0.0-0.45[facility] Eosinophils/100 WBC Auto (Bld)Ordered By: Jesus Gonzalez on 12-13-2024 Eosinophils/100 WBC (Bld)Automated eosinophil %.[facility] HamiltonErythrocyte distribution width Auto (RBC) [Ratio]Ordered By: Jesus Gonzalez on 95-16-8998Pkqyjylwpjm distribution width (RBC) [Ratio]Erythrocyte distribution width [Ratio] by Automated count11.9-15.3FJ.W. Ruby Memorial HospitalFerritinon 89-28-9261Vabwuzlm [Mass/Vol]56.2 ng/nOVyiuoz92.0-306.8The [facility] Physician GroupComment on above:Result Comment: PERFORMED BY: [place] [address] PATHOLOGIST SPIN INSTRUCTOR PAKO RAMACHANDRAN M.D.Performed By: #### LIPID, [id number], TSH3, T3F, FE PRO, [id number], T4T, MG, A1C WTH eA, CBC, PHOS #### [address] #### INSULIN #### [facility] ,Ferritin [Mass/volume] in Serum or PlasmaOrdered By: Jesus Gonzalez on 12-13-2024 Ferritin [Mass/Vol]Ferritin [Mass/volume] in Serum or Tbgzrr88.0-306.8[facility] HamiltonHematocrit Auto (Bld) [Volume fraction]Ordered By: Jesus Gonzalez on 41-67-1285Lihqusetkt (Bld) [Volume fraction]Hematocrit [Volume Fraction] of Blood by Automated count34.0-46.4FJ.W. [facility] Memorial Hospital Hemoglobin [Mass/volume] in BloodOrdered By: Jseus Gonzalez on 83-72-9585Oikceobmsv (Bld) [Mass/Vol]Hemoglobin [Mass/volume] in Blood11.8-15.4FJ.W. Ruby Memorial HospitalIronon 66-96-8323Uspf [Mass/Vol]37 ug/eYJes20-535Tjj [facility] Physician GroupComment on above:Performed By: #### LIPID, [id number], TSH3, T3F, FE PRO, [id number], T4T, MG, A1C WTH eA, CBC, PHOS #### [address] #### INSULIN #### [facility] ,Iron [Mass/volume] in Serum or PlasmaOrdered By: Jesus Gonzalez on 21-51-9439Cuhm [Mass/Vol]Iron [Mass/volume] in Serum or WioofsPaw54-005HjvdxinbxKettering Health HamiltonLeukocytes [#/volume] corrected for nucleated erythrocytes in Blood by Automated counOrdered By: Jesus Gonzalez on 66-25-0827PAW corrected for nucl RBC Auto (Bld) [#/Vol]Leukocytes [#/volume] corrected for nucleated erythrocytes in Blood by Automated coun3.8-11.6FJ.W. [facility] Memorial Hospital Lymphocytes Auto (Bld) [#/Vol]Ordered By: Jesus Gonzalez on 03-89-9875Cvuxblgrpft (Bld) [#/Vol]Lymphocytes [#/volume] in Blood by Automated count1.00-4.8[facility] HamiltonLymphocytes/100 WBC Auto (Bld)Ordered By: Jesus Gonzalez on 07-65-7467Rodysfzbwqy/100 WBC (Bld)Lymphocytes/100 leukocytes in Blood by Automated count.[facility] HospitalH Auto (RBC) [Entitic mass] Ordered By: Jesus Gonzalez on 37-04-9877FBX (RBC) [Entitic mass]MCH [Entitic mass] by Automated count24.7-34.3FJ.W. Ruby Memorial HospitalMCHC Auto (RBC) [Mass/Vol]Ordered By: Jesus Gonzalez on 59-92-7658FXTS (RBC) [Mass/Vol]MCHC [Mass/volume] by Automated count32.0-35.0[facility] HamiltonMCV Auto (RBC) [Entitic vol]Ordered By: Jesus Gonzalez on 49-51-4348HYR (RBC) [Entitic vol]MCV [Entitic volume] by Automated -133TmvwcsncfKettering Health HamiltonMonocytes Auto (Bld) [#/Vol]Ordered By: Jesus Gonzalez on 33-41-5060Saobrtmhm (Bld) [#/Vol]Automated blood monocyte countHigh0.0-0.8[facility] HamiltonMonocytes/100 WBC Auto (Bld)Ordered By: Jesus Gonzalez on 12-13-2024 Monocytes/100 WBC (Bld)Automated monocyte %.[facility] Neutrophils Auto (Bld) [#/Vol]Ordered By: Jesus Gonzalez on 85-64-6145Xkjmlbvcgzq (Bld) [#/Vol]Neutrophils [#/volume] in Blood by Automated count1.8-7.7FJ.W. Ruby Memorial HospitalNeutrophils/100 WBC Auto (Bld)Ordered By: Jesus Gonzalez on 63-71-6591Nnggimjohsb/100 WBC (Bld)Automated neutrophil %.[facility] HamiltonNucleated erythrocytes [Presence] in Blood by Automated count Ordered By: Jesus Gonzalez on 49-07-8528Biictwfsq RBC Auto Ql (Bld)Nucleated erythrocytes [Presence] in Blood by Automated count0-0.5FJ.W. Ruby Memorial HospitalPlatelet mean volume Auto (Bld) [Entitic vol]Ordered By: Jesus Gonzalez on 34-10-8076Inisvywf mean volume (Bld) [Entitic vol]Platelet mean volume [Entitic volume] in Blood by Automated count6.3-10.7FJ.W. Ruby Memorial HospitalPlatelets Auto (Bld) [#/Vol]Ordered By: Jesus Gonzalez on 16-50-0457Rjzwivrvq (Bld) [#/Vol]Platelets [#/volume] in Blood by Automated uawkz019-423IcforemoiKettering Health HamiltonRBC Auto (Bld) [#/Vol]Ordered By: Jesus Gonzalez on 87-81-5431SBO (Bld) [#/Vol]Erythrocytes [#/volume] in Blood by Automated count 3.60-5.00[facility] HamiltonWBC Auto (Bld) [#/Vol]Ordered By: Jesus Gonzalez on 26-41-0353YGF (Bld) [#/Vol]Leukocytes [#/volume] in Blood by Automated count3.8-11.6FJ.W. Ruby Memorial HospitalCNPNon 26-85-8741YRPE Telephone (NSCAMN) KOURTNEY NOVAK ([id number]) 1975 F Date Time Provider Department 12/05/24 SHAKILA PHILLIPS [facility] During your visit today, we recorded [...] reach out for questions/concerns/updates. Shakila Phillips RN, [place] Allergies As of Date: 12/05/2024 (No Known [...] [G44*06/01/2023 Encounter Status:Closed by SHAKILA PHILLIPS on 12/05/24[facility]X-ray reportOrdered By: George Gray on 04-24-1996Ovotk reportFIRPROMEDICA DEFIANCE REGIONAL [facility] [address] [place] [address] XRay Report Signed Patient: Kourtney Novak MR#: [id number] : 1975 Acct:[id number] Age/Sex: 48 / F ADM Date: 5 [place]: [facility] [place]: Type: [facility] Attending Dr: Alessia Broderick MD Copies to: [...] George Gray M.D.11/03/2024 4:19 PM Dictation Location: [place] [address] Transcribed By: [facility] 11/03/24 1619 Dictated By: George Gray DO 11/03/24 1618 Signed By: 11/03/24 1619 [facility] HamiltonXR shoulder LT min 2V*on 51-51-7508SS shoulder LT min 2V*[facility] [address] [place] [address] XRay Report Signed Patient: Kourtney Novak MR#: [id number] : 1975 Acct:[id number] Age/Sex: 48 / F ADM Date: 11/03/24 Loc: SOXD Room: Type: [facility] Attending Dr: Alessia Broderick MD Copies to: [...] George Gray M.D.11/03/2024 4:19 PM Dictation Location: [place] [address] Transcribed By: [facility] 11/03/24 1619 Dictated By: George Gray DO 11/03/24 1618 Signed By: 11/03/24 1619[facility] Physician GroupCNPNon 39-47-7754FVGWIcnuapogx (MAGDALENAUAV) KOURTNEY NOVAK ([id number]) 1975 F Date Time Provider Department 10/10/24 ZULEMA WOOD During your visit today, we recorded the following information about you: Tere Escamilla LPN 10/10/2024 4:11 PM Addendum Received fax from [facility]. States that diagnosis code M19.9 ( inflammatory arthritis ) does not pass medical necessity for the [address]41 regarding CBC test. They needs a different order to be placed with another diagnosis code. Please fax to Jimbo Whitten at [phone]. Notice sent to scanning . Please route to [facility] nurse for follow up Tere Escamilla LPN 10/10/2024 5:01 PM Signed Faxed new order with updated diagnosis code . sent to [phone]. Allergies As of Date: 10/10/2024 (No Known Allergies) Date Reviewed: 05/30/2024 Reviewed by: Saritha Keith MA - Fully Assessed Reason for Visit: [place] - Other [3602] Cmt: Lab order problem Primary Visit Diagnosis:Encounter for medication monitoring [Z51.81] Order(s):ASPARTATE AMINOTRANSFERASE/SGOT [SQAST] Order #: [id number] STANDING ALANINE AMINOTRANSFERASE / SGPT [SQALT] Order #: [id number] STANDING COMPLETE BLOOD COUNT [SQCBC] Order #: [id number] STANDING SEDIMENTATION RATE, WESTERGREN [SQWSR] Order #: [id number] STANDING C-REACTIVE PROTEIN [SQCRP] Order #: [id number] STANDING Prescriptions as of 10/10/2024 - DULoxetine [...] [G44*06/01/2023 Encounter Status:Closed by TERE ESCAMILLA on 10/10/24[facility] CampusAlanine Aminotransferaseon 95-20-9352HFZ [Catalytic activity/Vol]21 U/L Normal7-The [facility] Cabarrus Physician GroupComment on above:Order Comment: FASTING.JKWPerformed By: #### LIPID, [id number], TSH3, T3F, FE PRO, [id number], T4T, MG, A1C WTH eA, CBC, PHOS #### [facility] [address] [place] [address] #### INSULIN #### [facility] ,Alanine aminotransferase [Enzymatic activity/volume] in Serum or PlasmaOrdered By: Zulema Wood on 55-14-2157FZO [Catalytic activity/Vol]Alanine aminotransferase [Enzymatic activity/volume] in Serum or PlasmaKettering Health HamiltonAspartate Amino Transferaseon 61-56-9291SBE [Catalytic activity/Vol]14 U/EUynztz08-63Tvr [facility] Cabarrus Physician GroupComment on above: Order Comment: FASTING.JKWPerformed By: #### LIPID, [id number], TSH3, T3F, FE PRO, [id number], T4T, MG, A1C WTH eA, CBC, PHOS #### [facility] [address] #### INSULIN #### [facility] ,Aspartate aminotransferase [Enzymatic activity/volume] in Serum or Plasma Ordered By: Zulema Wood on 22-93-4067NBZ [Catalytic activity/Vol]Aspartate aminotransferase [Enzymatic activity/volume] in Serum or Figqgg12-92TdpywivlvKettering Health HamiltonBasophils Auto (Bld) [#/Vol]Ordered By: Zulema Wood on 48-92-0378Wthlapfmj (Bld) [#/Vol]Automated basophil count0.0-0.2FJ.W. Ruby Memorial HospitalBasophils/100 WBC Auto (Bld)Ordered By: Zulema Wood on 49-95-2450Pdnilfnng/100 WBC (Bld)Automated basophil %.[facility] HamiltonC reactive protein [Mass/volume] in Serum or PlasmaOrdered By: Zulema Wood on 64-51-9830QDE [Mass/Vol]C reactive protein [Mass/volume] in Serum or PlasmaHigh0.0-0.5FJ.W. Ruby Memorial HospitalC-Reactive Proteinon 20-63-6883I-Reactive Protein0.7 mg/dLHigh0.0-0.5[facility] Comment on above:Order Comment: FASTING.[employer] Comment: PERFORMED BY: [place] [address] PATHOLOGIST SPIN INSTRUCTOR PAKO RAMACHANDRAN M.D.Performed By: #### LIPID, [id number], TSH3, T3F, FE PRO, [id number], T4T, MG, A1C WTH eA, CBC, PHOS #### [facility] [address] [place] [address] #### INSULIN #### [facility] ,CNPNon 64-73-6834VSQQWogcnluxk (RHEUAV) KOURTNEY NOVAK ([id number]) 1975 F Date Time Provider Department 09/20/24 ZULEMA WOOD During your visit today, we recorded the following information about you: Tere Escamilla LPN 09/20/2024 5:47 PM Signed Lab results received from [facility] . Copy sent to scan, copy sent to provider folder for review. . Allergies As of Date: 09/20/2024 (No Known Allergies) Date Reviewed: 05/30/2024 Reviewed by: Saritha Keith MA - Fully Assessed Reason for Visit: Results [95] Cmt: Lab results from [facility] Prescriptions as of 09/21/2024 - etodolac (LODINE) [...] [G44*06/01/2023 Encounter Status:Closed by TERE ESCAMILLA on 09/21/24[facility] CampusComplete Blood Count Auto Diffon 09-47-2045Ycfdworfm (Bld) [#/Vol]0.0 10*3/uLNormal0.0-0.2The [facility] Cabarrus Physician GroupComment on above:Order Comment: FASTING.JKWPerformed By: #### LIPID, [id number], TSH3, T3F, FE PRO, [id number], T4T, MG, A1C WTH eA, CBC, PHOS #### [place] [address] [place] #### INSULIN #### [facility] ,Basophils/100 WBC (Bld)0.6 %Normal.The [facility] Cabarr[facility] Physician GroupComment on above:Order Comment: FASTING.JKWPerformed By: #### LIPID, [id number], TSH3, T3F, FE PRO, [id number], T4T, MG, A1C WTH eA, CBC, PHOS #### [facility] [address] [place] [address] [place] #### INSULIN #### [facility] ,Eosinophils (Bld) [#/Vol]0.1 10*3/uLNormal0.0-0.45[facility] Comment on above:Order Comment: FASTING.JKWPerformed By: #### LIPID, [id number], TSH3, T3F, FE PRO, RHGQ90SXY, T4T, MG, A1C WTH eA, CBC, PHOS #### [place] [address] [place] #### INSULIN #### [facility] ,Eosinophils/100 WBC (Bld)1.2 %Normal.The [facility]arr[facility] Physician GroupComment on above:Order Comment: FASTING.JKWPerformed By: #### LIPID, [id number], TSH3, T3F, FE PRO, UZYQ45AHC, T4T, MG, A1C WTH eA, CBC, PHOS #### [address] #### INSULIN #### [facility] ,Erythrocyte distribution width (RBC) [Ratio]13.0 %Oehcdc76.9-15.3The [facility] Cabarrus Physician GroupComment on above:Order Comment: FASTING.JKWPerformed By: #### LIPID, [id number], TSH3, T3F, FE PRO, [id number], T4T, MG, A1C WTH eA, CBC, PHOS #### [address] #### INSULIN #### [facility] ,Hematocrit (Bld) [Volume fraction]35.8 %Iqzolj69.0-46.4The [facility] Cabarrus Physician GroupComment on above:Order Comment: FASTING.JKWPerformed By: #### LIPID, [id number], TSH3, T3F, FE PRO, ECTQ66ENR, T4T, MG, A1C WTH eA, CBC, PHOS #### [place] [address] [place] #### INSULIN #### [facility] ,Hemoglobin (Bld) [Mass/Vol]12.0 g/uEEummeg67.8-15.4The [facility] Cabarrus Physician GroupComment on above:Order Comment: FASTING.JKWPerformed By: #### LIPID, [id number], TSH3, T3F, FE PRO, [id number], T4T, MG, A1C WTH eA, CBC, PHOS #### [place] [address] [place] #### INSULIN #### [facility] ,Lymphocytes (Bld) [#/Vol]2.1 10*3/uLNormal1.00-4.8[facility] Comment on above:Order Comment: FASTING.JKWPerformed By: #### LIPID, [id number], TSH3, T3F, FE PRO, [id number], T4T, MG, A1C WTH eA, CBC, PHOS #### [address] #### INSULIN #### [facility] ,Lymphocytes/100 WBC (Bld)28.4 %Normal.The [facility] Cabarr[facility] Physician GroupComment on above:Order Comment: FASTING.JKWPerformed By: #### LIPID, [id number], TSH3, T3F, FE PRO, [id number], T4T, MG, A1C WTH eA, CBC, PHOS #### [address] #### INSULIN #### [facility] ,MCH (RBC) [Entitic mass]30.4 blAxtzrw09.7-34.3[facility] Comment on above:Order Comment: FASTING.JKWPerformed By: #### LIPID, [id number], TSH3, T3F, FE PRO, [id number], T4T, MG, A1C WTH eA, CBC, PHOS #### [place] [address] [place] #### INSULIN #### [facility] ,MCV (RBC) [Entitic vol]90.8 [id number] [facility] Physician GroupComment on above:Order Comment: FASTING.JKWPerformed By: #### LIPID, [id number], TSH3, T3F, FE PRO, [id number], T4T, MG, A1C WTH eA, CBC, PHOS #### [place] [address] [place] #### INSULIN #### [facility] ,Mean Corpuscular HGB Conc33.5 g/uJUmsdcy08.0-35.0[facility] Comment on above:Order Comment: FASTING.JKWPerformed By: #### LIPID, [id number], TSH3, T3F, FE PRO, [id number], T4T, MG, A1C WTH eA, CBC, PHOS #### [address] #### INSULIN #### [facility] ,Monocytes (Bld) [#/Vol]1.0 10*3/uLHigh0.0-0.8[facility] Comment on above:Order Comment: FASTING.JKWPerformed By: #### LIPID, [id number], TSH3, T3F, FE PRO, [id number], T4T, MG, A1C WTH eA, CBC, PHOS #### [place] [address] [place] #### INSULIN #### [facility] ,Monocytes/100 WBC (Bld)13.1 %Normal.[facility] GroupComment on above:Order Comment: FASTING.JKWPerformed By: #### LIPID, [id number], TSH3, T3F, FE PRO, [id number], T4T, MG, A1C WTH eA, CBC, PHOS #### [place] [address] [place] #### INSULIN #### [facility] ,Neutrophils (Bld) [#/Vol]4.3 10*3/uLNormal1.8-7.7[facility] Comment on above:Order Comment: FASTING.JKWPerformed By: #### LIPID, [id number], TSH3, T3F, FE PRO, [id number], T4T, MG, A1C WTH eA, CBC, PHOS #### [facility] [address] [place] [address] [place] #### INSULIN #### [facility] ,Neutrophils/100 WBC (Bld)56.7 %Normal.The [facility] Physician GroupComment on above:Order Comment: FASTING.JKWPerformed By: #### LIPID, [id number], TSH3, T3F, FE PRO, [id number], T4T, MG, A1C WTH eA, CBC, PHOS #### [facility] [address] [place] [address] [place] #### INSULIN #### [facility] ,NRBC%0.0 /100{WBC}Normal0-0.5The [facility]arrus Physician GroupComment on above: Order Comment: FASTING.JKWPerformed By: #### LIPID, [id number], TSH3, T3F, FE PRO, [id number], T4T, MG, A1C WTH eA, CBC, PHOS #### [facility] [address] [place] [address] [place] #### INSULIN #### [facility] ,Platelet mean volume (Bld) [Entitic vol]8.5 fLNormal6.3-10.7The [facility] Physician GroupComment on above:Order Comment: FASTING.JKWPerformed By: #### LIPID, [id number], TSH3, T3F, FE PRO, [id number], T4T, MG, A1C WTH eA, CBC, PHOS #### [facility] [address] [place] [address] [place] #### INSULIN #### [facility] ,Platelets (Bld) [#/Vol]353 10*3/oABaqxlc452-078Lpz [facility] Comment on above:Order Comment: FASTING.JKWPerformed By: #### LIPID, [id number], TSH3, T3F, FE PRO, [id number], T4T, MG, A1C WTH eA, CBC, PHOS #### [place] [address] [place] #### INSULIN #### [facility] ,RBC (Bld) [#/Vol]3.94 10*6/uLNormal3.60-5.00[facility] Comment on above:Order Comment: FASTING.JKWPerformed By: #### LIPID, [id number], TSH3, T3F, FE PRO, [id number], T4T, MG, A1C WTH eA, CBC, PHOS #### [address] #### INSULIN #### [facility] ,WBC (Bld) [#/Vol]7.5 10*3/uLNormal3.8-11.6The [facility] Physician GroupComment on above:Order Comment: FASTING.JKWPerformed By: #### LIPID, [id number], TSH3, T3F, FE PRO, [id number], T4T, MG, A1C WTH eA, CBC, PHOS #### [address] #### INSULIN #### [facility] ,Eosinophils Auto (Bld) [#/Vol]Ordered By: Zulema Wood on 87-63-6023Xyucxulmbwv (Bld) [#/Vol]Automated eosinophil count0.0-0.45[facility] HamiltonEosinophils/100 WBC Auto (Bld)Ordered By: Zulema Wood on 09-20-2024 Eosinophils/100 WBC (Bld)Automated eosinophil %.[facility] HamiltonErythrocyte Sedimentation Rateon 16-14-8275KWU (Bld) [Velocity]9 mm/h Normal0-19The [facility] Physician GroupComment on above:Order Comment: FASTING.JKWResult Comment: PERFORMED BY: [address] [place] [address] PATHOLOGIST SPIN INSTRUCTOR PAKO RAMACHANDRAN M.D.Performed By: #### LIPID, XSNV10XK, TSH3, T3F, FE PRO, [id number], T4T, MG, A1C WTH eA, CBC, PHOS #### [facility] [address] #### INSULIN #### [facility] ,Erythrocyte distribution width Auto (RBC) [Ratio]Ordered By: Zulema Wood on 52-47-6006Siztdgkvwpd distribution width (RBC) [Ratio]Erythrocyte distribution width [Ratio] by Automated count11.9-15.3FJ.[facility]. [facility] Erythrocyte sedimentation rate by Photometric methodOrdered By: Zulema Wood on 29-73-2344YTE Photometric method (Bld) [Velocity]Erythrocyte sedimentation rate by Photometric method0-19[facility] HamiltonHematocrit Auto (Bld) [Volume fraction]Ordered By: Zulema Wood on 31-83-0784Wdgysipuug (Bld) [Volume fraction]Hematocrit [Volume Fraction] of Blood by Automated count34.0-46.4 [facility] HamiltonHemoglobin [Mass/volume] in BloodOrdered By: Zulema Wood on 68-10-5723Ksixrrmief (Bld) [Mass/Vol]Hemoglobin [Mass/volume] in Blood11.8-15.4FJ.W. Ruby Memorial HospitalLeukocytes [#/volume] corrected for nucleated erythrocytes in Blood by Automated counOrdered By: Zulema Wood on 67-34-8374NDD corrected for nucl RBC Auto (Bld) [#/Vol]Leukocytes [#/volume] corrected for nucleated erythrocytes in Blood by Automated coun3.8-11.6FJ.W. Ruby Memorial HospitalLymphocytes Auto (Bld) [#/Vol]Ordered By: Zulema Wood on 83-32-2397Foghcswxwax (Bld) [#/Vol]Lymphocytes [#/volume] in Blood by Automated count1.00-4.8[facility] HamiltonLymphocytes/100 WBC Auto (Bld)Ordered By: Zulema Wood on 79-21-9345Tjzvpxwbegi/100 WBC (Bld) Lymphocytes/100 leukocytes in Blood by Automated count.[facility] HamiltonMCH Auto (RBC) [Entitic mass]Ordered By: Zulema Wood on 26-38-0056TBH (RBC) [Entitic mass]MCH [Entitic mass] by Automated count24.7-34.3 [facility] HamiltonMCHC Auto (RBC) [Mass/Vol]Ordered By: Zulema Wood on 48-04-8069EGHL (RBC) [Mass/Vol]MCHC [Mass/volume] by Automated count 32.0-35.0[facility] HamiltonMCV Auto (RBC) [Entitic vol]Ordered By: Zulema Wood on 49-63-4453FUT (RBC) [Entitic vol]MCV [Entitic volume] by Automated mdyqj99-432JirsnbhqkKettering Health HamiltonMonocytes Auto (Bld) [#/Vol]Ordered By: Zulema Wood on 01-03-1705Jgcbamolt (Bld) [#/Vol]Automated blood monocyte countHigh0.0-0.8[facility] HamiltonMonocytes/100 WBC Auto (Bld)Ordered By: Zulema Wood on 75-36-4576Vbxgetpam/100 WBC (Bld) Automated monocyte %.[facility] HamiltonNeutrophils Auto (Bld) [#/Vol]Ordered By: Zulema Wood on 22-41-3852Lztcviladjb (Bld) [#/Vol] Neutrophils [#/volume] in Blood by Automated count1.8-7.7FJ.W. Ruby Memorial HospitalNeutrophils/100 WBC Auto (Bld)Ordered By: Zulema Wood on 41-24-7052Krsdgggvjhw/100 WBC (Bld)Automated neutrophil %.[facility] HamiltonNucleated erythrocytes [Presence] in Blood by Automated count Ordered By: Zulema Wood on 34-51-9853Wnsjexwpn RBC Auto Ql (Bld)Nucleated erythrocytes [Presence] in Blood by Automated count0-0.5FJ.W. Ruby Memorial HospitalPlatelet mean volume Auto (Bld) [Entitic vol]Ordered By: Zulema Wood on 06-29-7793Htvpczzk mean volume (Bld) [Entitic vol]Platelet mean volume [Entitic volume] in Blood by Automated count6.3-10.7FJ.W. Ruby Memorial HospitalPlatelets Auto (Bld) [#/Vol]Ordered By: Zulema Wood on 09-20-2024 Platelets (Bld) [#/Vol]Platelets [#/volume] in Blood by Automated -818 [facility] HamiltonRBC Auto (Bld) [#/Vol]Ordered By: Zulema Wood on 85-93-5551TZH (Bld) [#/Vol]Erythrocytes [#/volume] in Blood by Automated count3.60-5.00[facility] HamiltonWBC Auto (Bld) [#/Vol]Ordered By: Zulema Wood on 50-34-0348BYG (Bld) [#/Vol]Leukocytes [#/volume] in Blood by Automated count3.8-11.6FJ.W. Ruby Memorial HospitalMM screening mammo BI w/CADon 20-87-9111LV screening mammo BI w/[facility] [place] [address] Mammography Report Signed Patient: Kourtney Novak MR#: [id number] : 1975 Acct:[id number] Age/Sex: 48 / F ADM Date: 09/16/24 Loc: [place] Room: Type: [facility] Attending Dr: Referral Self Copies to: Jesus [...] Lincoln Hoffmann M.D.09/16/2024 2:40 PM Dictation Location: [facility] Transcribed By: GRACIE 09/16/24 1440 Dictated By: Lincoln Hoffmann MD 09/16/24 1437 Signed By: 09/16/24 1440[facility] Physician GroupMammography reportOrdered By: Lincoln Hoffmann on 95-24-5222Crpsiilrsp imaging [facility] [place] [address] [place] [address] Mammography Report Signed Patient: Kourtney Novak MR#: [id number] : 1975 Acct:[id number] Age/Sex: 48 / F ADM Date: 5 Loc: [place] Room: Type: [facility] Attending Dr: Referral Self Copies to: Jesus [...] Lincoln Hoffmann M.D.09/16/2024 2:40 PM Dictation Location: [facility] Transcribed By: GRACIE 09/16/24 1440 Dictated By: Lincoln Hoffmann MD 09/16/24 1437 Signed By: 09/16/24 1440 [facility] Work Phone: Thyrotropin [Units/volume] in Serum or PlasmaOrdered By: Jesus Gonzalez on 79-10-3824IUL Qn2.24 m[IU]/L0.45-5.33[facility] HamiltonThyroxine (T4) [Mass/volume] in Serum or PlasmaOrdered By: Jesus Gonzalez on 93-98-9867J9 [Mass/Vol]11.23 ug/dL5.39-11.82[facility] HamiltonTriiodothyronine (T3) Free [Mass/volume] in Serum or PlasmaOrdered By: Jesus Gonzalez on 31-88-7518Xegy T3 [Mass/Vol]2.96 pg/mL2.50-3.90[facility] HamiltonAlanine aminotransferase [Enzymatic activity/volume] in Serum or PlasmaOrdered By: Jesus Gonzalez on 82-49-9328HNG [Catalytic activity/Vol]17 U/L 7-52[facility] HamiltonAlbumin [Mass/volume] in Serum or Plasma by Bromocresol green (BCG) dye binding methoOrdered By: Jesus Gonzalez on 05-12-2024 Albumin BCG dye [Mass/Vol]4.1 g/dL3.5-5.7FJ.W. [facility] Alkaline phosphatase [Enzymatic activity/volume] in Serum or PlasmaOrdered By: Jesus Gonzalez on 44-67-8223OYY [Catalytic activity/Vol]42 U/M50-886ZkbmpqgwdKettering Health HamiltonAnisocytosis LM Ql (Bld)Ordered By: Jesus Gonzalez on 60-11-9009Bgeesbcjuoqm Ql (Bld)SlightKettering Health HamiltonAspartate aminotransferase [Enzymatic activity/volume] in Serum or PlasmaOrdered By: Jesus Gonzalez on 01-04-2420RRO [Catalytic activity/Vol]11 U/PThr29-25FggdwxypnKettering Health HamiltonBand form neutrophils/100 WBC Manual cnt (Bld)Ordered By: Jesus Gonzalez on 67-75-0917Elas form neutrophils/100 WBC (Bld)1 %0-5FJ.W. Ruby Memorial HospitalBasophils Auto (Bld) [#/Vol]Ordered By: Jesus Hoy on 93-12-6768Pcygjlher (Bld) [#/Vol]N/[facility] Basophils/100 WBC Auto (Bld)Ordered By: Jesus Gonzalez on 99-68-0548Sudzwtczr/100 WBC (Bld)N/[facility] HospitalBasophils/100 WBC Manual cnt (Bld) Ordered By: Jesus Gonzalez on 27-98-4874Ltcbiuxyp/100 WBC (Bld)1 %0-2FJ.W. Ruby Memorial HospitalBilirubin.total [Mass/volume] in Serum or PlasmaOrdered By: Jesus Gonzalez on 87-50-2291Bposcngaf [Mass/Vol]0.4 mg/dL0.3-1.0[facility] HamiltonCalcium [Mass/volume] in Serum or PlasmaOrdered By: Jesus Gonzalez on 71-55-2130Attyszy [Mass/Vol]9.4 mg/dL8.6-10.3FJ.W. Ruby Memorial HospitalCarbon dioxide, total [Moles/volume] in Serum or PlasmaOrdered By: Jesus Gonzalez on 15-80-5165ZC1 [Moles/Vol]27.0 mmol/L21.0-31.0[facility] HamiltonChloride [Moles/volume] in Serum or PlasmaOrdered By: Jesus Gonzalez on 00-31-1146Rksxkqiz [Moles/Vol]101 mmol/X45-226KzxedlbsrKettering Health HamiltonCholesterol [Mass/volume] in Serum or PlasmaOrdered By: Jesus Gonzalez on 80-14-1332Yfsydcijgnb [Mass/Vol]191 mg/yC292-984XefxgfrruKettering Health HamiltonComment on above:Chol less than 200 mg/dl low riskChol 201-239 mg/dl borderline riskChol 240 mg/dl and greater high riskCholesterol in LDL Calc [Mass/Vol]Ordered By: Jesus Gonzalez on 98-22-3432Hirmoudyxsi in LDL [Mass/Vol]76 mg/dL0-100[facility] HamiltonComment on above:LDL ATP III CLASSIFICATIONLDL less than 100 mg/dL OptimalLDL 100-129 mg/dL Near or above ajfzffcLQU858-298 mg/dL Borderline highLDL 160-189 mg/dL HighLDL greater than 189 mg/dL Very highCholesterol in VLDL Calc [Mass/Vol]Ordered By: Jesus Gonzalez on 05-69-8710Chnuytpbbig in VLDL [Mass/Vol]29 mg/dLKettering Health HamiltonCreatinine [Mass/volume] in Serum or PlasmaOrdered By: Jesus Gonzalez on 91-46-2982Ethgfcvful [Mass/Vol]1.05 mg/dL0.60-1.20[facility] HamiltonEosinophils Auto (Bld) [#/Vol]Ordered By: Jesus Gonzalez on 05-12-2024 Eosinophils (Bld) [#/Vol]N/AFJ.W. Ruby Memorial HospitalEosinophils/100 WBC Auto (Bld)Ordered By: Jesus Gonzalez on 37-51-3200Msubbdqzsmd/100 WBC (Bld)N/A [facility] HamiltonEosinophils/100 WBC Manual cnt (Bld)Ordered By: Jesus Gonzalez on 90-04-8458Ckjowtpkuhr/100 WBC (Bld)2 %1-3FJ.W. Ruby Memorial HospitalErythrocyte distribution width Auto (RBC) [Ratio]Ordered By: Jesus Gonzalez on 51-37-6647Uqtreuifcbw distribution width (RBC) [Ratio]13.9 % 11.9-15.3FJ.W. Ruby Memorial HospitalFolate [Mass/volume] in Serum or PlasmaOrdered By: Jesus Gonzalez on 04-29-9868Wctxko [Mass/Vol]7.8 ng/mL>5.9 [facility] HamiltonComment on above:Folate reference range: >5.9 ng/mlThe WHO technical consultation on folate and vitamin g48lnjcswytbgme has determined that folate concentrations lessthan 4 ng/ml are considered deficient. Globulin Calc (S) [Mass/Vol]Ordered By: Jesus Gonzalez on 94-52-1471Flxbwnzo (S) [Mass/Vol]2.0 g/dLKettering Health HamiltonGlucose [Mass/volume] in Serum or PlasmaOrdered By: Jesus Gonzalez on 42-33-1235Dwlzseu [Mass/Vol]111 mg/dL Eqvk37-455NkjeajgnwKettering Health HamiltonComment on above:ADA recommended reference rangeRandom Glucose Reference Range is dependent on time and content of last meal. Glucose of more than 200 mg/dL in a nonstressed, ambulatory subject supports the diagnosisof Diabetes Mellitus.Glucose mean value [Mass/volume] in Blood Estimated from glycated hemoglobinOrdered By: Jesus Gonzalez on 43-55-5793Lkzwdyc glucose Estimated from glycated hemoglobin (Bld) [Mass/Vol]114 mg/dLKettering Health HamiltonHematocrit Auto (Bld) [Volume fraction]Ordered By: Jesus Gonzalez on 31-81-0464Duyogfpznv (Bld) [Volume fraction]39.1 %34.0-46.4FJ.W. Ruby Memorial HospitalHemoglobin A1c percentageOrdered By: Jesus Gonzalez 71-86-2437OcK3w (Bld) [Mass fraction]5.6 % 4.3-5.6FJ.W. Ruby Memorial HospitalComment on above:Increased risk for diabetes: 5.7 - 6.4diabetes: >6.4glycemic control for adults with diabetes: &l t;7.0Hemoglobin [Mass/volume] in BloodOrdered By: Jesus Gonzalez on 05-12-2024 Hemoglobin (Bld) [Mass/Vol]12.9 g/dL11.8-15.4FJ.[facility]. [facility] Iron [Mass/volume] in Serum or PlasmaOrdered By: Jesus Gonzalez on 04-23-5593Lvqs [Mass/Vol]80 ug/oV53-496QnnknkvqzKettering Health HamiltonLeukocytes [#/volume] corrected for nucleated erythrocytes in Blood by Automated counOrdered By: Jesus Gonzalez on 09-86-8301CVC corrected for nucl RBC Auto (Bld) [#/Vol]11.8 10*3/uLHigh3.8-11.6FJ.W. Ruby Memorial HospitalLymphocytes Auto (Bld) [#/Vol]Ordered By: Jesus Gonzalez on 26-67-5390Wlcwgozwfol (Bld) [#/Vol]N/A [facility] HamiltonLymphocytes/100 WBC Auto (Bld)Ordered By: Jesus Gonzalez on 21-80-8164Epnknhnotjw/100 WBC (Bld)N/[facility] HospitalLymphocytes/100 WBC Manual cnt (Bld)Ordered By: Jesus Gonzalez on 05-12-2024 Lymphocytes/100 WBC (Bld)28 %18-42[facility] HamiltonMCH Auto (RBC) [Entitic mass]Ordered By: Jesus Gonzalez on 21-89-7931QCE (RBC) [Entitic mass]29.9 pg24.7-34.3FJ.W. Ruby Memorial HospitalMCHC Auto (RBC) [Mass/Vol] Ordered By: Jesus Gonzalez on 16-27-8792ZYNN (RBC) [Mass/Vol]33.0 g/dL32.0-35.0 [facility] HamiltonMCV Auto (RBC) [Entitic vol]Ordered By: Jesus Gonzalez on 24-92-9745TUK (RBC) [Entitic vol]90.8 sH02-675EqyzoyhwoKettering Health HamiltonMetamyelocytes/100 WBC Manual cnt (Bld)Ordered By: Jesus Gonzalez on 42-98-8069Eubinmzptvtoai/100 WBC (Bld)2 %High0-0[facility] HamiltonMicrocytes LM Ql (Bld)Ordered By: Jesus Gonzalez on 57-76-8534Rgnrammxvl Ql (Bld)SlightKettering Health HamiltonMonocytes Auto (Bld) [#/Vol]Ordered By: Jesus Gonzalez on 65-20-0953Ryfgaiczs (Bld) [#/Vol]N/[facility] HospitalMonocytes/100 WBC Auto (Bld)Ordered By: Jesus Gonzalez on 05-12-2024 Monocytes/100 WBC (Bld)N/[facility] HospitalMonocytes/100 WBC Manual cnt (Bld)Ordered By: Jesus Gonzalez on 61-64-3850Agtiemjos/100 WBC (Bld)12 % High2-11[facility] HamiltonNeutrophils Auto (Bld) [#/Vol]Ordered By: Jesus Gonzalez on 86-30-0477Snsacwfhhqw (Bld) [#/Vol]N/[facility] HospitalNeutrophils/100 WBC Auto (Bld)Ordered By: Jesus Gonzalez on 69-90-3471Ylzlorzmcld/100 WBC (Bld)N/[facility] HospitalNo Panel InformationOrdered By: Jesus Gonzalez on 23-92-1763Eszdvjeiy GFR (CKD-EPI)> 60.0 mL/MinKettering Health HamiltonPharmacy Creatinine Clearance (ChemN/A [facility] HamiltonNucleated erythrocytes [Presence] in Blood by Automated countOrdered By: Jesus Gonzalez on 37-24-9050Ywnxmkmjx RBC Auto Ql (Bld) N/[facility] HospitalPlatelet adequacy [Presence] in Blood by Light microscopyOrdered By: Jesus Gonzalez on 62-34-1362Zfgpxnqha LM Ql (Bld)Normal NormalKettering Health HamiltonPlatelet mean volume Auto (Bld) [Entitic vol]Ordered By: Jesus Gonzalez on 82-36-9094Wplkgzpd mean volume (Bld) [Entitic vol]8.1 fL6.3-10.7FJ.W. Ruby Memorial HospitalPlatelet morphology finding [Identifier] in BloodOrdered By: Jesus Gonzalez on 19-60-4977Lmujjhzn morphology finding Nom (Bld)NormalNormalKettering Health HamiltonPlatelets Auto (Bld) [#/Vol]Ordered By: Jesus Gonzalez on 30-72-9224Nfxjwofqm (Bld) [#/Vol]392 10*3/xD444-648LwcnzsbdhKettering Health HamiltonPotassium [Moles/volume] in Serum or PlasmaOrdered By: Jesus Gonzalez on 54-30-0968Zdeqvfnef [Moles/Vol]4.1 mmol/L 3.5-5.1FJ.W. Ruby Memorial HospitalProtein [Mass/volume] in Serum or Plasma Ordered By: Jesus Gonzalez on 32-54-6143Fpwbpdc [Mass/Vol]6.1 g/dLLow6.4-8.9 [facility] HamiltonRBC Auto (Bld) [#/Vol]Ordered By: Jesus Gonzalez on 16-88-1390TSG (Bld) [#/Vol]4.30 10*6/uL3.60-5.00[facility] HamiltonRB morphologyOrdered By: Jesus Gonzalez on 53-03-2594GNB morphology finding Nom (Bld)N/AFKettering Health Miamisburgegmented neutrophils/100 WBC Manual cnt (Bld)Ordered By: Jesus Gonzalez on 70-66-6501Ctiuaaxri neutrophils/100 WBC (Bld)54 %50-70[facility]ja Medical Centererum or plasma albumin/globulin mass ratioOrdered By: Jesus Gonzalez on 95-86-6508Bhhqrwz/Globulin [Mass ratio]2.1 {ratio}[facility] Medical Centererum or plasma anion gap determinationOrdered By: Jesus Gonzalez on 70-98-6965Kubjw gap [Moles/Vol]12.1 mmol/L6.0-15.0[facility] Medical Centererum or plasma high density lipoprotein (HDL) cholesterol measurementOrdered By: Jesus Gonzalez on 05-12-2024 Cholesterol in HDL [Mass/Vol]86 mg/hU85-03WlrmcnqxlK[facility]tering Health Hamilton Comment on above:HDL CHOL ATP-III CLASSIFICATION Cardiovascular RiskHDL > or equal to 60 mg/dL LOWHDL < 40 mg/dL HIGHSerum or plasma insulin measurement (units/volume)Ordered By: Jesus Gonzalez on 29-95-3659Mbsufoh Qn38.1 u[iU]/mLHigh 2.6-24.9[facility] HamiltonComment on above:Performed at: - [facility] [address] [id number] Director: Maxim Daniel PhD, Phone: [phone] or plasma total cholesterol/high density lipoprotein (HDL) cholesterol mass ratOrdered By: Jesus Gonzalez on 05-12-2024 Cholesterol.total/Cholesterol in HDL [Mass ratio]2.2 {ratio}<5.0[facility] Medical Centerodium [Moles/volume] in Serum or PlasmaOrdered By: Jesus Gonzalez on 99-68-3578Lvomne [Moles/Vol]136 mmol/X076-693GivnueniwKettering Health HamiltonThyrotropin [Units/volume] in Serum or PlasmaOrdered By: Jesus Gonzalez on 89-26-6034EDT Qn6.32 m[IU]/LHigh0.45-5.33[facility] HamiltonThyroxine (T4) [Mass/volume] in Serum or PlasmaOrdered By: Jesus Gonzalez on 08-11-4800R1 [Mass/Vol]11.59 ug/dL5.39-11.82[facility] Triglyceride [Mass/volume] in Serum or PlasmaOrdered By: Jesus Gonzalez on 57-27-0215Jyonuvraynlw [Mass/Vol]146 mg/dL0-149[facility] Comment on above:TRIG ATP III CLASSIFICATIONTRIG less than 150 mg/dL NormalTRIG 150-199 mg/dL Borderline highTRIG 200-500 mg/dL High TRIG greater than 500 mg/dL Very highStandard traceable to the Center for Disease Conrtrol and Prevention (CDC) test method.Triiodothyronine (T3) Free [Mass/volume] in Serum or Plasma Ordered By: Jesus Gonzalez on 67-46-7068Gqiw T3 [Mass/Vol]3.61 pg/mL2.50-3.90 [facility] HamiltonUrea nitrogen [Mass/volume] in Serum or Plasma Ordered By: Jesus Gonzalez on 13-63-9693Qmqn nitrogen [Mass/Vol]20 mg/dL7-25 [facility] HamiltonVitamin B12 ser/plasOrdered By: Jesus Gonzalez on 96-61-5498Qppwgjmex (Vitamin B12) [Mass/Vol]306 pg/rI025-011TwqnwvjjaKettering Health HamiltonVitamin D+Metabolites [Mass/volume] in Serum or PlasmaOrdered By: Jesus Gonzalez on 88-97-4305Boxsrxo D+Metabolites [Mass/Vol]39.9 ng/xG28-344 [facility] HamiltonComment on above:VITAMIN D STATUS 25(OH)VITAMIN D RANGE (ng/mL) Deficient <20 Insufficient 20 to <66Hddwhfwvih34 to 100Reference: Nain MF,Anum LAURA, Brynn APARICIO et al. Evaluation,treatment, and prevention of vitamin D deficiency; an Endocrine Society clinical practice guideline. JCEM. 2010; 96(7):1911-30.WBC Auto (Bld) [#/Vol]Ordered By: Jesus Smithpiedad on 39-91-1617LPO (Bld) [#/Vol]11.8 10*3/uL High3.8-11.6FJ.W. Ruby Memorial HospitalCT BRAIN WO IVCONon 66-99-2612UV BRAIN WO IVCON* * *Final Report* * * DATE OF EXAM: Jan 29 2024 1:02PM [facility] BRAIN WO IVCON / [...] soft tissue component identified in the orbit. Solvent Process Extractor Operator: GUANACO Transcribe Date/Time: Jan 31 2024 3:33P Dictated by : NATIVIDAD PRIEST MD This examination was interpreted and the report reviewed and electronically signed by: NATIVIDAD PRIEST MD on Jan 31 2024 3:37PM EST [id number] Valley HospitalMRI SKULL BASE WO/W IVCONon [id number] SKULL BASE WO/W IVCON* * *Final Report* * * DATE OF EXAM: Jan 29 2024 1:56PM [facility] 0319 - MRI SKULL BASE WO/W [...] tissue mass extending into the of the district medical examiner or parapharyngeal spaces. The soft tissue planes of the, retropharyngeal, and prevertebral spaces are maintained. The visualized parotid glands are normal in appearance. Nasopharynx/Oropharynx: The nasopharynx and oropharynx are normal in appearance. 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 Solvent Process Extractor Operator: GUANACO Transcribe Date/Time: Jan 31 2024 5:10P Dictated by : WESTLEY IYER MD This examination was interpreted and the report reviewed and electronically signed by: WESTLEY IYER MD on Jan 31 2024 5:28PM EST [id number] Valley HospitalAlanine aminotransferase [Enzymatic activity/volume] in Serum or PlasmaOrdered By: Zulema Wood on 02-29-6584QZS [Catalytic activity/Vol]22 U/L7-52[facility] HamiltonAspartate aminotransferase [Enzymatic activity/volume] in Serum or Plasma Ordered By: Zulema Wood on 43-97-1629XBN [Catalytic activity/Vol]16 U/L13-39 [facility] HamiltonBasophils Auto (Bld) [#/Vol]Ordered By: Zulema Wood on 17-37-2289Mnwijmmjm (Bld) [#/Vol]0.1 10*3/uL0.0-0.2FJ.W. Ruby Memorial HospitalBasophils/100 WBC Auto (Bld)Ordered By: Zulema Wood on 01-08-2024 Basophils/100 WBC (Bld)1.1 %.[facility] HamiltonCreatinine [Mass/volume] in Serum or PlasmaOrdered By: Zulema Wood on 04-32-9710Kuqujxtwfa [Mass/Vol]1.00 mg/dL0.60-1.20[facility] HamiltonEosinophils Auto (Bld) [#/Vol]Ordered By: Zulema Wood on 56-61-9086Frxtptykcre (Bld) [#/Vol]0.1 10*3/uL0.0-0.45[facility] HamiltonEosinophils/100 WBC Auto (Bld) Ordered By: Zulema Wood on 37-09-5590Kyvdkhoqzls/100 WBC (Bld)1.8 %.[facility] HamiltonErythrocyte distribution width Auto (RBC) [Ratio]Ordered By: Zulema Wood on 26-68-6277Xqbodzmesvm distribution width (RBC) [Ratio]13.1 % 11.9-15.3FJ.W. Ruby Memorial HospitalHematocrit Auto (Bld) [Volume fraction]Ordered By: Zulema Wood on 57-23-1975Xmaaqbiadm (Bld) [Volume fraction]39.2 %34.0-46.4FJ.W. Ruby Memorial HospitalHemoglobin [Mass/volume] in BloodOrdered By: Zulema Wood on 83-40-5254Wgdmlhfdlm (Bld) [Mass/Vol]13.1 g/dL11.8-15.4FJ.W. Ruby Memorial HospitalLeukocytes [#/volume] corrected for nucleated erythrocytes in Blood by Automated coun Ordered By: Zulema Wood on 18-32-2026XFZ corrected for nucl RBC Auto (Bld) [#/Vol]6.8 10*3/uL3.8-11.6FJ.W. Ruby Memorial HospitalLymphocytes Auto (Bld) [#/Vol]Ordered By: Zulema Wood on 79-19-5570Qpxsgxzxzqz (Bld) [#/Vol]2.0 10*3/uL1.00-4.8[facility] HamiltonLymphocytes/100 WBC Auto (Bld) Ordered By: Zulema Wood on 70-56-5222Nvhduhiveim/100 WBC (Bld)29.3 %.[facility] HamiltonMCH Auto (RBC) [Entitic mass]Ordered By: Zulema Wood on 95-14-2877JOO (RBC) [Entitic mass]30.6 pg24.7-34.3FJ.W. Ruby Memorial HospitalMCHC Auto (RBC) [Mass/Vol]Ordered By: Zulema Wood on 33-70-1384BSQC (RBC) [Mass/Vol]33.4 g/dL32.0-35.0[facility] HamiltonMCV Auto (RBC) [Entitic vol]Ordered By: Zulema Wood on 80-32-3351IJU (RBC) [Entitic vol]91.5 cU98-456FaubsabvwKettering Health HamiltonMonocytes Auto (Bld) [#/Vol]Ordered By: Zulema Wood on 37-00-6226Jvhvxtmcy (Bld) [#/Vol]0.8 10*3/uL0.0-0.8[facility] HamiltonMonocytes/100 WBC Auto (Bld)Ordered By: Zulema Wood on 49-93-3122Rgdzdtgfx/100 WBC (Bld)11.3 %.[facility] Neutrophils Auto (Bld) [#/Vol]Ordered By: Zulema Wood on 97-01-0243Czzjygxnnxb (Bld) [#/Vol]3.9 10*3/uL1.8-7.7FJ.W. Ruby Memorial HospitalNeutrophils/100 WBC Auto (Bld)Ordered By: Zulema Wood on 35-32-4188Zilfyfpthzy/100 WBC (Bld) 56.5 %.[facility] HamiltonNo Panel InformationOrdered By: Zulema Wood on 69-16-3758Yvxnfxvnv GFR (CKD-EPI)> 60.0 mL/MinKettering Health HamiltonPharmacy Creatinine Clearance (ChemN/AFJ.W. Ruby Memorial HospitalNucleated erythrocytes [Presence] in Blood by Automated countOrdered By: Zulema Wood on 26-94-8004Ksxnfvopv RBC Auto Ql (Bld)0.1 /100{WBC}0-0.5FJ.W. Ruby Memorial HospitalPlatelet mean volume Auto (Bld) [Entitic vol]Ordered By: Zulema Wood on 23-73-5653Wssmugsh mean volume (Bld) [Entitic vol]8.4 fL6.3-10.7 [facility] HamiltonPlatelets Auto (Bld) [#/Vol]Ordered By: Zulema Wood on 22-65-1222Rxhwsfcif (Bld) [#/Vol]284 10*3/iT178-153YsrofeuzpKettering Health HamiltonRBC Auto (Bld) [#/Vol]Ordered By: Zulema Wood on 66-42-5789INC (Bld) [#/Vol]4.29 10*6/uL3.60-5.00[facility] HamiltonWBC Auto (Bld) [#/Vol]Ordered By: Zulema Wood on 80-23-4999NZS (Bld) [#/Vol]6.8 10*3/uL 3.8-11.6FJ.W. Ruby Memorial HospitalBasophils Auto (Bld) [#/Vol]Ordered By: Jesus Gonzalez on 94-66-3253Zkkytxhbw (Bld) [#/Vol]0.1 10*3/uL0.0-0.2FJ.W. Ruby Memorial HospitalBasophils/100 WBC Auto (Bld)Ordered By: Jesus Gonzalez on 57-99-2338Xfgcxrhrl/100 WBC (Bld)1.0 %.[facility] Eosinophils Auto (Bld) [#/Vol]Ordered By: Jesus Gonzalez on 27-32-2008Wubxojbnggi (Bld) [#/Vol]0.1 10*3/uL0.0-0.45[facility] HamiltonEosinophils/100 WBC Auto (Bld)Ordered By: Jesus Gonzalez on 67-02-7224Snuowmysjcw/100 WBC (Bld)1.3 %.[facility] HamiltonErythrocyte distribution width Auto (RBC) [Ratio]Ordered By: Jesus Gonzalez on 19-25-0682Nazrsbahtja distribution width (RBC) [Ratio]13.3 %11.9-15.3FJ.W. Ruby Memorial HospitalFerritin [Mass/volume] in Serum or PlasmaOrdered By: Jesus Gonzalez on 41-03-0575Cgpuelnh [Mass/Vol]88.4 ng/mL11.0-306.8[facility] HamiltonHematocrit Auto (Bld) [Volume fraction]Ordered By: Jesus Gonzalez on 01-80-4637Gqlxxqjkjr (Bld) [Volume fraction] 39.9 %34.0-46.4FJ.W. Ruby Memorial HospitalHemoglobin [Mass/volume] in BloodOrdered By: Jesus Gonzalez on 27-20-6648Bhkdbfsvzg (Bld) [Mass/Vol]13.0 g/dL 11.8-15.4FJ.W. Ruby Memorial HospitalIron [Mass/volume] in Serum or Plasma Ordered By: Jesus Gonzalez on 19-91-7315Swty [Mass/Vol]93 ug/rQ43-543AcnrzsxefKettering Health HamiltonLeukocytes [#/volume] corrected for nucleated erythrocytes in Blood by Automated counOrdered By: Jesus Gonzalez on 28-92-6186FEW corrected for nucl RBC Auto (Bld) [#/Vol]8.7 10*3/uL3.8-11.6FJ.W. Ruby Memorial HospitalLymphocytes Auto (Bld) [#/Vol]Ordered By: Jesus Gonzalez on 29-89-7385Ulawnyagwaq (Bld) [#/Vol]3.7 10*3/uL1.00-4.8[facility] HamiltonLymphocytes/100 WBC Auto (Bld)Ordered By: Jesus Gonzalez on 11-11-2023 Lymphocytes/100 WBC (Bld)42.6 %.[facility] (RBC) [Entitic mass]Ordered By: Jesus Gonzalez on 88-66-2221QGZ (RBC) [Entitic mass]30.0 pg24.7-34.3FJ.W. Ruby Memorial HospitalMCHC Auto (RBC) [Mass/Vol]Ordered By: Jesus Gonzalez on 32-57-0077MKCV (RBC) [Mass/Vol]32.6 g/dL32.0-35.0[facility] HamiltonMCV Auto (RBC) [Entitic vol]Ordered By: Jesus Gonzalez on 25-62-3429VGT (RBC) [Entitic vol]92.1 pP73-844MiykgosokKettering Health Hamilton Monocytes Auto (Bld) [#/Vol]Ordered By: Jesus Gonzalez on 24-94-9107Qazozumks (Bld) [#/Vol]0.9 10*3/uL0.0-0.8[facility] HamiltonMonocytes/100 WBC Auto (Bld)Ordered By: Jesus Gonzalez on 97-01-1192Kzkgahzki/100 WBC (Bld)9.8 %. [facility] HamiltonNeutrophils Auto (Bld) [#/Vol]Ordered By: Jesus Gonzalez on 78-35-9081Lxkvvmewqnf (Bld) [#/Vol]4.0 10*3/uL1.8-7.7FJ.W. Ruby Memorial HospitalNeutrophils/100 WBC Auto (Bld)Ordered By: Jesus Gonzalez on 65-52-3950Mwqvbrxtzpm/100 WBC (Bld)45.3 %.[facility] Nucleated erythrocytes [Presence] in Blood by Automated countOrdered By: Jesus Gonzalez on 73-28-1444Ajaxtyccf RBC Auto Ql (Bld)0.1 /100{WBC}0-0.5FJ.W. Ruby Memorial HospitalPlatelet mean volume Auto (Bld) [Entitic vol]Ordered By: Jesus Gonzalez on 31-34-9960Gdzszooy mean volume (Bld) [Entitic vol]9.0 fL6.3-10.7 [facility] HamiltonPlatelets Auto (Bld) [#/Vol]Ordered By: Jesus Gonzalez on 73-57-2958Oolmagqim (Bld) [#/Vol]363 10*3/lK757-586PjqoszmmqKettering Health HamiltonRBC Auto (Bld) [#/Vol]Ordered By: Jesus Gonzalez on 15-71-6615CJS (Bld) [#/Vol]4.34 10*6/uL3.60-5.00[facility] HamiltonWBC Auto (Bld) [#/Vol]Ordered By: Jesus Gonzalez on 81-45-3526AVQ (Bld) [#/Vol]8.7 10*3/uL 3.8-11.6FJ.W. Ruby Memorial HospitalAlanine aminotransferase [Enzymatic activity/volume] in Serum or PlasmaOrdered By: Jesus Gonzalez on 39-62-9810IQC [Catalytic activity/Vol]14 U/L7-52[facility] HamiltonAlbumin [Mass/volume] in Serum or Plasma by Bromocresol green (BCG) dye binding metho Ordered By: Jesus Gonzalez on 65-16-5294Rkkgxvm BCG dye [Mass/Vol]4.1 g/dL3.5-5.7 [facility] HamiltonAlkaline phosphatase [Enzymatic activity/volume] in Serum or PlasmaOrdered By: Jesus Gonzalez on 15-09-2996MRU [Catalytic activity/Vol]45 U/I01-427NvwcsqqsrKettering Health HamiltonAspartate aminotransferase [Enzymatic activity/volume] in Serum or PlasmaOrdered By: Jesus oGnzalez on 48-11-9160TFW [Catalytic activity/Vol]12 U/X90-92VdlyagqnxKettering Health HamiltonBasophils Auto (Bld) [#/Vol]Ordered By: Jesus Gonzalez on 79-51-9072Ryhgxvikc (Bld) [#/Vol]0.1 10*3/uL0.0-0.2FJ.W. Ruby Memorial HospitalBasophils/100 WBC Auto (Bld)Ordered By: Jesus Gonzalez on 05-22-2023 Basophils/100 WBC (Bld)0.9 %.[facility] HamiltonBilirubin.total [Mass/volume] in Serum or PlasmaOrdered By: Jesus Gonzalez on 32-79-2500Creiwchdc [Mass/Vol]0.3 mg/dL0.3-1.0[facility] HamiltonCalcium [Mass/volume] in Serum or PlasmaOrdered By: Jesus Gonzalez 27-93-2187Jfhjhny [Mass/Vol]9.5 mg/dL8.6-10.3FJ.W. Ruby Memorial HospitalCarbon dioxide, total [Moles/volume] in Serum or PlasmaOrdered By: Jesus Gonzalez on 86-39-8680WG1 [Moles/Vol]25.4 mmol/L21.0-31.0[facility] HamiltonChloride [Moles/volume] in Serum or PlasmaOrdered By: Jesus Gonzalez on 70-07-9145Xstemrec [Moles/Vol]106 mmol/M40-328IfqipefpwKettering Health HamiltonCholesterol [Mass/volume] in Serum or PlasmaOrdered By: Jesus Gonzalez on 77-17-1647Tpwyvpcjmny [Mass/Vol]182 mg/cZ584-017BifrrzspiKettering Health HamiltonComment on above: Chol less than 200 mg/dl low riskChol 201-239 mg/dl borderline riskChol 240 mg/dl and greater high riskCholesterol in LDL Calc [Mass/Vol]Ordered By: Jesus Gonzalez on 71-95-8500Ngbrpwcmmrj in LDL [Mass/Vol]58 mg/dL0-100[facility] HamiltonComment on above:LDL ATP III CLASSIFICATIONLDL less than 100 mg/dL OptimalLDL 100-129 mg/dL Near or above zvwahogKUQ565-284 mg/dL Borderline highLDL 160-189 mg/dL HighLDL greater than 189 mg/dL Very highCholesterol in VLDL Calc [Mass/Vol]Ordered By: Jesus Gonzalez on 74-73-9416Nofwuecyhcz in VLDL [Mass/Vol]44 mg/dLKettering Health HamiltonCreatinine [Mass/volume] in Serum or PlasmaOrdered By: Jesus Gonzalez on 57-50-7600Jdfyylzkyj [Mass/Vol]0.89 mg/dL0.60-1.20[facility] HamiltonEosinophils Auto (Bld) [#/Vol] Ordered By: Jesus Gonzalez on 59-78-3734Sgseldjifts (Bld) [#/Vol]0.1 10*3/uL 0.0-0.45[facility] HamiltonEosinophils/100 WBC Auto (Bld)Ordered By: Jesus Gonzalez on 64-91-9806Nwdhmrimzph/100 WBC (Bld)1.3 %.[facility] HamiltonErythrocyte distribution width Auto (RBC) [Ratio]Ordered By: Jesus Gonzalez on 86-95-7083Jcfuuczmgtp distribution width (RBC) [Ratio]20.4 % 11.9-15.3FJ.W. Ruby Memorial HospitalFerritin [Mass/volume] in Serum or PlasmaOrdered By: Jesus Gonzalez on 25-93-3777Zqkotqba [Mass/Vol]147.2 ng/mL 11.0-306.8[facility] HamiltonGlobulin Calc (S) [Mass/Vol]Ordered By: Jesus Gonzalez on 31-77-5860Fadzgnak (S) [Mass/Vol]1.8 g/dLKettering Health HamiltonGlucose [Mass/volume] in Serum or PlasmaOrdered By: Jesus Gonzalez on 98-28-4874Gfilmep [Mass/Vol]88 mg/eQ03-287HefzxzcleKettering Health Hamilton Comment on above:ADA recommended reference rangeRandom Glucose Reference Range is dependent on time and content of last meal. Glucose of more than 200 mg/dL in a nonstressed, ambulatory subject supports the diagnosisof Diabetes Mellitus. Glucose mean value [Mass/volume] in Blood Estimated from glycated hemoglobin Ordered By: Jesus Gonzalez on 66-12-3834Wnnpwwm glucose Estimated from glycated hemoglobin (Bld) [Mass/Vol]105 mg/dLKettering Health HamiltonHematocrit Auto (Bld) [Volume fraction]Ordered By: Jesus Gonzalez on 82-33-1898Msqhukvafa (Bld) [Volume fraction]37.0 %34.0-46.4FJ.[facility]. [facility] Hemoglobin A1c percentageOrdered By: Jesus Gonzalez on 91-13-5195VrI4a (Bld) [Mass fraction]5.3 %4.3-5.6FJ.W. Ruby Memorial HospitalComment on above:Increased risk for diabetes: 5.7 - 6.4diabetes: >6.4glycemic control for adults with diabetes: <7.0Hemoglobin [Mass/volume] in BloodOrdered By: Jesus Gonzalez on 54-77-8840Lfvpcjkijl (Bld) [Mass/Vol]11.9 g/dL11.8-15.4FJ.W. Ruby Memorial HospitalIron [Mass/volume] in Serum or PlasmaOrdered By: Jesus Gonzalez on 24-52-5127Dudd [Mass/Vol]57 ug/nQ13-795HbfaolvehKettering Health Hamilton Leukocytes [#/volume] corrected for nucleated erythrocytes in Blood by Automated counOrdered By: Jesus Gonzalez on 54-47-1555UNT corrected for nucl RBC Auto (Bld) [#/Vol]9.6 10*3/uL3.8-11.6FJ.W. Ruby Memorial HospitalLymphocytes Auto (Bld) [#/Vol]Ordered By: Jesus Gonzalez on 58-87-4395Muerowkbxdc (Bld) [#/Vol]2.2 10*3/uL1.00-4.8[facility] HamiltonLymphocytes/100 WBC Auto (Bld) Ordered By: Jesus Gonzalez on 58-86-5331Ceppitxkpvl/100 WBC (Bld)22.5 %.[facility] HospitalH Auto (RBC) [Entitic mass]Ordered By: Jesus Gonzalez on 66-11-1527HLB (RBC) [Entitic mass]27.7 pg24.7-34.3FJ.W. Ruby Memorial HospitalMCHC Auto (RBC) [Mass/Vol]Ordered By: Jesus Gonzalez on 31-57-7810ATYW (RBC) [Mass/Vol]32.2 g/dL32.0-35.0[facility] HamiltonMCV Auto (RBC) [Entitic vol]Ordered By: Jesus Gonzalez on 56-10-8139EAW (RBC) [Entitic vol]85.8 fL 80-100[facility] HamiltonMonocytes Auto (Bld) [#/Vol]Ordered By: Jesus Gonzalez on 42-18-7936Tjtdtzqcx (Bld) [#/Vol]1.0 10*3/uL0.0-0.8[facility] HamiltonMonocytes/100 WBC Auto (Bld)Ordered By: Jesus Gonzalez on 97-89-5795Uguqjsktu/100 WBC (Bld)9.9 %.[facility] Neutrophils Auto (Bld) [#/Vol]Ordered By: Jesus Gonzalez on 55-95-0642Jlfekpvggen (Bld) [#/Vol]6.3 10*3/uL1.8-7.7FJ.W. Ruby Memorial HospitalNeutrophils/100 WBC Auto (Bld)Ordered By: Jesus Gonzalez on 18-81-9218Sdfdxnfaieu/100 WBC (Bld)65.4 %.[facility] HamiltonNo Panel InformationOrdered By: Jesus Gonzalez on 89-46-6529Pqloreifb GFR (CKD-EPI)> 60.0 mL/MinKettering Health HamiltonPharmacy Creatinine Clearance (ChemN/AFJ.W. Ruby [facility] Hospital Nucleated erythrocytes [Presence] in Blood by Automated countOrdered By: Jesus Gonzalez on 82-73-9995Dlbyuglrb RBC Auto Ql (Bld)0.1 /100{WBC}0-0.5FJ.W. Ruby Memorial HospitalPlatelet mean volume Auto (Bld) [Entitic vol]Ordered By: Jesus Gonzalez on 73-56-9638Lpbitvfq mean volume (Bld) [Entitic vol]9.0 fL6.3-10.7 [facility] HamiltonPlatelets Auto (Bld) [#/Vol]Ordered By: Jesus Gonzalez on 42-03-5444Rknlfiypf (Bld) [#/Vol]339 10*3/lB624-986GqcvbxwwcKettering Health HamiltonPotassium [Moles/volume] in Serum or PlasmaOrdered By: Jesus Gonzalez on 21-10-5168Oaqvlregp [Moles/Vol]3.9 mmol/L3.5-5.1FJ.W. Ruby Memorial HospitalProtein [Mass/volume] in Serum or PlasmaOrdered By: Jesus Gonzalez on 78-34-8511Mslybhk [Mass/Vol]5.9 g/dL6.4-8.9[facility] HamiltonRBC Auto (Bld) [#/Vol]Ordered By: Jesus Gonzalez on 91-06-8793LBK (Bld) [#/Vol]4.31 10*6/uL3.60-5.00[facility] Medical Centererum or plasma albumin/globulin mass ratioOrdered By: Jesus Gonzalez on 50-75-6911Vefzcea/Globulin [Mass ratio]2.3 {ratio}[facility] Centererum or plasma anion gap determinationOrdered By: Jesus Gonzalez on 34-20-0158Guhaj gap [Moles/Vol]10.5 mmol/L6.0-15.0[facility] Centererum or plasma high density lipoprotein (HDL) cholesterol measurementOrdered By: Jesus Gonzalez on 05-22-2023 Cholesterol in HDL [Mass/Vol]79 mg/iN66-59RdksmihxgKettering Health Hamilton Comment on above:HDL CHOL ATP-III CLASSIFICATION Cardiovascular RiskHDL > or equal to 60 mg/dL LOWHDL < 40 mg/dL HIGHSerum or plasma total cholesterol/high density lipoprotein (HDL) cholesterol mass ratOrdered By: Jesus Gonzalez on 71-76-4632Btpouduwnoh.total/Cholesterol in HDL [Mass ratio]2.3 {ratio}<5.0 [facility] Centerodium [Moles/volume] in Serum or PlasmaOrdered By: Jesus Gonzalez on 11-26-5063Agfzxp [Moles/Vol]138 mmol/F703-725VvbtyukirKettering Health HamiltonThyrotropin [Units/volume] in Serum or PlasmaOrdered By: Jesus Gonzalez on 51-83-5469QSL Qn3.27 m[IU]/L0.45-5.33[facility] HamiltonThyroxine (T4) free [Mass/volume] in Serum or PlasmaOrdered By: Jesus Gonzalez on 82-25-7674Xryd T4 [Mass/Vol]0.91 ng/dL0.61-1.12[facility] HamiltonTriglyceride [Mass/volume] in Serum or PlasmaOrdered By: Jesus Gonzalez on 10-98-2560Rvqcbxmkarem [Mass/Vol]223 mg/dL0-149[facility] Comment on above:TRIG ATP III CLASSIFICATIONTRIG less than 150 mg/dL NormalTRIG 150-199 mg/dL Borderline highTRIG 200-500 mg/dL High TRIG greater than 500 mg/dL Very highStandard traceable to the Center for Disease Conrtrol and Prevention (CDC) test method.Urea nitrogen [Mass/volume] in Serum or PlasmaOrdered By: Jesus Gonzalez on 31-72-5829Azyh nitrogen [Mass/Vol]10 mg/dL7-25[facility] HamiltonWBC Auto (Bld) [#/Vol]Ordered By: Jesus Gonzalez on 66-65-1602EWN (Bld) [#/Vol]9.6 10*3/uL3.8-11.6FJ.W. Ruby Memorial HospitalBasophils Auto (Bld) [#/Vol]Ordered By: Jeuss Gonzalez on 33-38-1242Zqsavgzgi (Bld) [#/Vol]0.1 10*3/uL0.0-0.2FJ.W. Ruby Memorial HospitalBasophils/100 WBC Auto (Bld) Ordered By: Jesus Gonzalez on 69-15-0483Hfanagmgl/100 WBC (Bld)0.8 %.[facility] HamiltonEosinophils Auto (Bld) [#/Vol]Ordered By: Jesus Gonzalez on 48-36-4876Jgkfpijdaqo (Bld) [#/Vol]0.1 10*3/uL0.0-0.45[facility] HamiltonEosinophils/100 WBC Auto (Bld)Ordered By: Jesus Gonzalez on 04-15-2023 Eosinophils/100 WBC (Bld)1.3 %.[facility] HamiltonErythrocyte distribution width Auto (RBC) [Ratio]Ordered By: Jesus Gonzalez on 04-15-2023 Erythrocyte distribution width (RBC) [Ratio]15.8 %11.9-15.3FJ.W. Ruby Memorial HospitalFerritin [Mass/volume] in Serum or PlasmaOrdered By: Jesus Gonzalze on 83-56-5956Xwpdocdh [Mass/Vol]5.1 ng/mL11.0-306.8[facility] HamiltonHematocrit Auto (Bld) [Volume fraction]Ordered By: Jesus Gonzalez on 05-46-9268Esupvlckfi (Bld) [Volume fraction]35.0 %34.0-46.4FJ.W. Ruby Memorial HospitalHemoglobin [Mass/volume] in BloodOrdered By: Jesus Gonzalez on 18-63-6105Rfeawuxxqm (Bld) [Mass/Vol]11.2 g/dL11.8-15.4FJ.W. Ruby Memorial HospitalIron [Mass/volume] in Serum or PlasmaOrdered By: Jesus Gonzalez on 80-99-9679Oiyh [Mass/Vol]18 ug/oY58-402WrnjegbnuK[facility]tering Health Hamilton Leukocytes [#/volume] corrected for nucleated erythrocytes in Blood by Automated counOrdered By: Jesus Gonzalez on 93-38-8747IJE corrected for nucl RBC Auto (Bld) [#/Vol]9.6 10*3/uL3.8-11.6FJ.W. Ruby Memorial HospitalLymphocytes Auto (Bld) [#/Vol]Ordered By: Jesus Gonzalez on 47-14-9126Kmfkwbromse (Bld) [#/Vol]2.2 10*3/uL1.00-4.8[facility] HamiltonLymphocytes/100 WBC Auto (Bld) Ordered By: Jesus Gonzalez on 45-20-0842Wcjvipeglks/100 WBC (Bld)23.3 %.[facility] HospitalH Auto (RBC) [Entitic mass]Ordered By: Jesus Gonzalez on 98-03-3374BNY (RBC) [Entitic mass]26.0 pg24.7-34.3FJ.W. Ruby Memorial HospitalMCHC Auto (RBC) [Mass/Vol]Ordered By: Jesus Gonzalez on 14-65-4444PIHR (RBC) [Mass/Vol]32.0 g/dL32.0-35.0[facility] HamiltonMCV Auto (RBC) [Entitic vol]Ordered By: Jesus Gonzalez on 18-28-6571XOR (RBC) [Entitic vol]81.2 fL 80-100[facility] HamiltonMonocytes Auto (Bld) [#/Vol]Ordered By: Jesus Gonzalez on 05-34-3649Qbmuwxsjb (Bld) [#/Vol]0.7 10*3/uL0.0-0.8[facility] HamiltonMonocytes/100 WBC Auto (Bld)Ordered By: Jesus Gonzalez on 78-21-0708Zwmbysozs/100 WBC (Bld)7.7 %.[facility] Neutrophils Auto (Bld) [#/Vol]Ordered By: Jesus Gonzalez on 50-37-2929Nneprlbzpva (Bld) [#/Vol]6.4 10*3/uL1.8-7.7FJ.W. Ruby Memorial HospitalNeutrophils/100 WBC Auto (Bld)Ordered By: Jesus Gonzalez on 96-57-3609Imsjeczsvvv/100 WBC (Bld)66.9 %.[facility] HamiltonNucleated erythrocytes [Presence] in Blood by Automated countOrdered By: Jesus Gonzalez on 84-10-1217Zbnnihbgm RBC Auto Ql (Bld)0.4 /100{WBC}0-0.5FJ.W. Ruby Memorial HospitalPlatelet mean volume Auto (Bld) [Entitic vol]Ordered By: Jesus Carlos on 75-96-9974Ydnadrni mean volume (Bld) [Entitic vol]9.1 fL6.3-10.7FJ.[facility]. [facility] Platelets Auto (Bld) [#/Vol]Ordered By: Jesus Carlos on 17-84-3388Odxvbmfyc (Bld) [#/Vol]427 10*3/fP129-778OomltrphcKettering Health HamiltonRBC Auto (Bld) [#/Vol]Ordered By: Jesus Carlos on 03-55-5103DVK (Bld) [#/Vol]4.31 10*6/uL 3.60-5.00[facility] HamiltonWBC Auto (Bld) [#/Vol]Ordered By: Jesus Gonzalez on 53-72-5970DJY (Bld) [#/Vol]9.6 10*3/uL3.8-11.6FJ.W. Ruby Memorial HospitalBNPon 09-49-5909Jjjyanwrxvn peptide B (Bld) [Mass/Vol]173.0 pg/mL Normal<=450.0The [facility] HospitalComment on above:Performed By: #### LACT #### [facility] [address] [place] [address] Dr. Ko Blas W MANUAL DIFFon 05-22-3090JYRONFXY LYMPH #0.18 103/ulNormal The [facility] HospitalComment on above:Performed By: #### ISAIAHMAN #### [facility] [address] [place] [address] Dr. Ko RogerYPICAL LYMPH %2 %NormalThe [facility] HospitalComment on above: Performed By: #### CBCMAN #### [facility] [address] [place] [address] Dr. Ko Gould #0.0 103/ulNormal0.0-0.3The [facility] HospitalComment on above:Performed By: #### CBCMAN #### [facility] [address] [place] [address] Dr. Ko Gould %0 %Normal0-5The [facility] HospitalComment on above:Performed By: #### CBCCHRISTIANO #### [facility] [address] [address] [address] Ko Martinez #0.00 103/ulNormal0.00-0.10The [facility] HospitalComment on above:Performed By: #### CBCCHRISTIANO #### [facility] [address] [place] [address] Dr. Ko Martinez %0.0 %Critically low0.2-2.0The [facility] HospitalComment on above:Performed By: #### CBCCHRISTIANO #### [facility] [address] [place] [address] Dr. Ko Whaley #NormalThe [facility] HospitalComment on above:Performed By: #### NICOLETTE #### [facility] [address] [place] [address] Dr. Ko Whaley %NormalThe [facility] HospitalComment on above:Performed By: #### NICOLETTE #### [facility] [address] [place] [address] Dr. Ko StephenCORRECTED WBCNormal4.0-11.0The [facility] HospitalComment on above: Performed By: #### NICOLETTE #### [facility] [address] [place] [address] Dr. Ko Kim #0.00 103/ulNormal0.00-0.70The [facility] HospitalComment on above:Performed By: #### CBCCHRISTIANO #### [facility] [address] [place] [address] Dr. Ko Kim%0.0 %Critically low0.9-7.0The [facility] HospitalComment on above:Performed By: #### NICOLETTE #### [facility] [address] [place] [address] Dr. Ko StephenHCT32.8 %Critically low36.0-48.0The [facility] HospitalComment on above:Performed By: #### CBCCHRISTIANO #### [facility] [address] [place] [address] Dr. Ko StephenHGB11.1 g/dlCritically low12.0-16.0[facility] HospitalComment on above:Performed By: #### NICOLETTE #### [facility] [address] [address] [address] Ko Palacios #0.18 103/ulCritically low1.20-3.80The [facility] Comment on above:Performed By: #### NICOLETTE #### [facility] [address] [address] [address] Ko Palacios%2.0 %Critically low20.5-60.0The [facility] HospitalComment on above:Performed By: #### NICOLETTE #### [facility] [address] [place] [address] Dr. Ko TinocoH27.7 rsFamonh92.7-34.0The [facility] HospitalComment on above: Performed By: #### NICOLETTE #### [facility] [address] [place] [address] Dr. Ko TinocoHC33.8 g/mhBljcrk10.9-35.2The [facility] HospitalComment on above:Performed By: #### NICOLETTE #### [facility] [address] [place] [address] Dr. Ko TinocoV81.8 rAPeqixs65.0-99.0The [facility] HospitalComment on above: Performed By: #### NICOLETTE #### [facility] [address] [place] [address] Dr. Ko OsborneOCYTE #NormalThe [facility] HospitalComment on above: Performed By: #### NICOLETTE #### [facility] [address] [place] [address] Dr. Ko OsborneOCYTE %NormalThe [facility] HospitalComment on above: Performed By: #### NICOLETTE #### [facility] [address] [place] [address] Dr. Ko Connolly#0.09 103/ulCritically low0.30-0.80The [facility] Comment on above:Performed By: #### NICOLETTE #### [facility] [address] [address] [address] Ko Connolly%1.0 %Critically low1.7-12.0The [facility] HospitalComment on above:Performed By: #### NICOLETTE #### [facility] [address] [address] [address] Ko OslulivanV9.8 fLNormal9.5-13.5The [facility] HospitalComment on above: Performed By: #### NICOLETTE #### [facility] [address] [address] [address] Ko MijaresOCYTE #NormalTwin City HospitalComment on above:Performed By: #### NICOLETTE #### [facility] [address] [address] [address] Ko Meadows %NormalThe [facility] HospitalComment on above:Performed By: #### NICOLETTE #### [facility] [address] [address] [address] Ko StephenNRBCNormalThChildren's Hospital of ColumbusComment on above:Performed By: #### NICOLETTE #### [facility] [address] [address] [address] Ko BoldenT375 103/sxPywwln097-888Ibj [facility] HospitalComment on above: Performed By: #### NICOLETTE #### [facility] [address] [place] [address] Dr. Ko StephenRBC4.01 106/ulCritically low4.20-5.40The [facility] HospitalComment on above:Performed By: #### NICOLETTE #### [facility] [address] [place] [address] Dr. Ko StephenRDW13.5 %Oltoly35.0-15.0The [facility] HospitalComment on above: Performed By: #### NICOLETTE #### [facility] [address] [place] [address] Dr. Ko Sepulveda #8.55 103/ulCritically high1.40-6.50The [facility] on above:Performed By: #### NICOLETTE #### [facility] [address] [address] [address] Ko StephenSEG %95.0 %Critically high43.0-75.0The [facility] on above:Performed By: #### CBCMAN #### [facility] [address] [address] [address] Ko StephenWBC9.0 103/ulNormal4.0-11.0The [facility] Hospitalment on above: Performed By: #### CBCMAN #### [facility] [address] [place] [address] Dr. Ko StephenPOINT OF CARE GLUCOSEon 30-06-8600Jisgpjc [Mass/Vol]98 mg/dL Gapmft23-723Erq [facility] on above:Performed By: #### LACT #### [facility] [address] [place] [address] Dr. Ko StephenGlucose [Mass/Vol]158 mg/dLCritically cgvx26-455Juq [facility] on above:Performed By: #### POCGLUC #### [facility] [address] [place] [address] Dr. Ko StephenPROF 14(COMP METB)on 24-92-3374Ohoepmv [Mass/Vol]3.7 g/dLNormal 3.4-5.0The [facility] on above:Performed By: #### LACT #### [facility] [address] [place] [address] Dr. Ko StephenAlbumin/Globulin [Mass ratio]1.2 {ratio}NormalThe [facility] on above:Performed By: #### LACT #### [facility] [address] [place] [address] Dr. Ko GarcesP [Catalytic activity/Vol]42 U/LCritically lhf77-584Fnm [facility] on above:Performed By: #### LACT #### [facility] [address] [place] [address] Dr. Ko GarcesT [Catalytic activity/Vol]30 U/[id number] Julio C HospitalComment on above:Performed By: #### LACT #### [facility] [address] [address] [address] Ko Gatiac gap [Moles/Vol]17.1 mmol/LNormalThe [facility] Comment on above:Performed By: #### LACT #### [facility] [address] [address] [address] Ko StephenAST [Catalytic activity/Vol]15 U/[id number] [facility] Hospital[facility] on above:Performed By: #### LACT #### [facility] [address] [place] [address] Dr. Ko StephenBilirubin [Mass/Vol]0.2 mg/dLNormal0.2-1.0The [facility] Comment on above:Performed By: #### LACT #### [facility] [address] [address] [address] Ko StephenCalcium [Mass/Vol]9.6 mg/dLNormal8.5-10.1[facility] Comment on above:Performed By: #### LACT #### [facility] [address] [address] [address] Ko StephenChloride [Moles/Vol]100 mmol/PDhxaqp15-633FluTwin City Hospital Comment on above:Performed By: #### LACT #### [facility] [address] [address] [address] Ko StephenCO2 [Moles/Vol]22.3 mmol/LTelnns32.0-32.0[facility] Comment on above:Performed By: #### LACT #### [facility] [address] [address] [address] Ko StephenCreatinine [Mass/Vol]1.10 mg/dLCritically high0.55-1.02The [facility] HospitalComment on above:Performed By: #### LACT #### [facility] [address] [address] [address] Connell ChangEGFR-AF PRYDEINIG>60Normal>=60The [facility] HospitalComment on above:Performed By: #### LACT #### [facility] [address] [address] [address] Ko HopsonGFR-NON AF HZWKENJR81 mL/min/1.11t5Aqfwmzocpg low>=60The [facility] HospitalComment on above:Performed By: #### LACT #### [facility] [address] [address] [address] Ko StephenGlobulin (S) [Mass/Vol]3.1 g/dLNoSelect Medical TriHealth Rehabilitation HospitalComment on above:Performed By: #### LACT #### [facility] [address] [address] [address] Ko StephenGlucose [Mass/Vol]180 mg/dLCritically esdk83-370Boc [facility] HospitalComment on above:Performed By: #### LACT #### [facility] [address] [address] [address] Ko StephenPotassium [Moles/Vol]3.4 mmol/LCritically low3.5-5.1The [facility] HospitalComment on above:Performed By: #### LACT #### [facility] [address] [address] [address] Ko StephenProtein [Mass/Vol]6.8 g/dLNormal6.4-8.2The [facility] Comment on above:Performed By: #### LACT #### [facility] [address] [address] [address] Ko StephenSodium [Moles/Vol]136 mmol/NQfgafp606-490Uym [facility] Comment on above:Performed By: #### LACT #### [facility] [address] [address] [address] Ko StephenUrea nitrogen [Mass/Vol]19.0 mg/dLCritically high7.0-18.0The [facility] HospitalComment on above:Performed By: #### LACT #### [facility] [address] [address] [address] Ko StephenUrea nitrogen/Creatinine [Mass ratio]17.3 mg/mgNoSelect Medical TriHealth Rehabilitation HospitalComment on above:Performed By: #### LACT #### [facility] [address] [place] [address] Dr. Ko Jean 06-98-3969Fogpwtgmivf peptide B (Bld) [Mass/Vol]291.0 pg/mL Normal<=450.0The [facility] Hospitalment on above:Performed By: #### CMP, CMADM, BNP #### [facility] [address] [place] [address] Dr. Ko Vann PERRY ADMITon 67-08-6298IW [Catalytic activity/Vol]286 U/L Critically skeu06-046Upq [facility] Hospitalment on above:Performed By: #### CMP, CMADM, BNP #### [facility] [address] [place] [address] Dr. Ko Olivares.MB [Mass/Vol]4.51 ng/mLCritically high<=3.60The [facility] Hospitalment on above:Performed By: #### CMP, CMADM, BNP #### [facility] [address] [place] [address] Dr. Ko ValderramaTROP5.0 pg/mLNormal4.0-51.3The [facility] Hospitalment on above:Result Comment: CUT-OFF POINTS HAVE BEEN ESTABLISHED BASED ON THE FOURTH UNIVERSAL DEFINITIONS OF MYOCARDIAL INFARCTION. THE UPPER REFERENCE LIMIT (URL) OF TROPONIN, DEFINED THE 99TH PERCENTILE OF cTnI DISTRIBUTION IN A REFERENCE POPULATION, HAS BEEN CONFIRMED THE DECISION THRESHOLD FOR NE DIAGNOSIS.Performed By: #### CMP, CMADM, BNP #### [facility] [address] [place] [address] Dr. Ko JohnsO184 ng/mLCritically high9-82The [facility] Hospitalment on above:Performed By: #### CMP, CMADM, BNP #### [facility] [address] [place] [address] Dr. Ko Blas AUTO DIFFon 83-50-4239BPPQ #0.0 103/ulNormal0.0-0.1The [facility] Hospitalment on above:Performed By: #### CBC #### [facility] [address] [place] [address] Dr. Yilan ChangBasophils/100 WBC (Bld)0.2 %Normal0.2-2.0The [facility] Comment on above:Performed By: #### CBC #### [facility] [address] [place] [address] Dr. Ko Noble #0.0 103/ulNormal0.0-0.7The [facility] HospitalComment on above: Performed By: #### CBC #### [facility] [address] [place] [address] Dr. Ko Hopsonosinophils/100 WBC (Bld)0.0 %Critically low0.9-7.0The [facility] HospitalComment on above:Performed By: #### CBC #### [facility] [address] [place] [address] Dr. Ko Hopsonrythrocyte distribution width (RBC) [Ratio]13.7 %Nsfhah62.0-15.0 The [facility] HospitalComment on above:Performed By: #### CBC #### [facility] [address] [place] [address] Dr. Ko StephenHematocrit (Bld) [Volume fraction]31.8 %Critically low36.0-48.0 The [facility] HospitalComment on above:Performed By: #### CBC #### [facility] [address] [place] [address] Dr. Ko StephenHemoglobin (Bld) [Mass/Vol]11.1 g/dLCritically low12.0-16.0The [facility] HospitalComment on above:Performed By: #### CBC #### [facility] [address] [place] [address] Dr. Ko Mendoza #0.11 10e3/ulCritically high0.00-0.03The [facility] Comment on above:Performed By: #### CBC #### [facility] [address] [place] [address] Dr. Ko Mendoza %1.0 %Critically high0.0-0.5The [facility] HospitalComment on above:Performed By: #### CBC #### [facility] [address] [address] [address] Ko Chavira #1.8 103/ulNormal1.2-3.8The [facility] HospitalComment on above:Performed By: #### CBC #### [facility] [address] [address] [address] Ko Daiglemphocytes/100 WBC (Bld)16.2 %Critically low20.5-60.0The [facility] HospitalComment on above:Performed By: #### CBC #### [facility] [address] [address] [address] Ko GilesUAL DIFF REQNONormalThe [facility] HospitalComment on above: Performed By: #### CBC #### [facility] [address] [place] [address] Dr. Ko Tinoco (RBC) [Entitic mass]28.2 ogMlpsgx34.7-34.0The [facility] HospitalComment on above:Performed By: #### CBC #### [facility] [address] [place] [address] Dr. Ko Tinoco (RBC) [Mass/Vol]34.9 g/yXOpvabq93.9-35.2The [facility] Hospitalment on above:Performed By: #### CBC #### [facility] [address] [place] [address] Dr. Ko Tinoco (RBC) [Entitic vol]80.7 fLCritically low81.0-99.0The [facility] Hospitalment on above:Performed By: #### CBC #### [facility] [address] [place] [address] Dr. Ko Paredes #0.7 103/ulNormal0.3-0.8The [facility] HospitalComment on above:Performed By: #### CBC #### [facility] [address] [place] [address] Dr. Ko Rennerocytes/100 WBC (Bld)6.3 %Normal1.7-12.0The [facility] Comment on above:Performed By: #### CBC #### [facility] [address] [address] [address] Ko Hwang #8.4 103/ulCritically high1.4-6.5The [facility] Comment on above:Performed By: #### CBC #### [facility] [address] [place] [address] Dr. Ko Hernandezutrophils/100 WBC (Bld)76.3 %Critically high43.0-75.0The [facility] HospitalComment on above:Performed By: #### CBC #### [facility] [address] [place] [address] Dr. Ko StephenPlatelet mean volume (Bld) [Entitic vol]9.5 fLNormal9.5-13.5The [facility] HospitalComment on above:Performed By: #### CBC #### [facility] [address] [place] [address] Dr. Ko StephenPLT384 103/gqJhvgno187-478Jud [facility] HospitalComment on above: Performed By: #### CBC #### [facility] [address] [place] [address] Dr. Ko StephenRBC3.94 106/ulCritically low4.20-5.40The [facility] HospitalComment on above:Performed By: #### CBC #### [facility] [address] [place] [address] Dr. Ko StephenWBC11.0 103/ulNormal4.0-11.0The [facility] HospitalComment on above:Performed By: #### CBC #### [facility] [address] [place] [address] Dr. Ko StephenCULTURE URINEon 94-78-8388PVHKAVL URINECulture Observations: NO GROWTH.NormalThe [facility] HospitalComment on above:Performed By: #### URCX #### [facility] [address] [place] [address] Dr. Ko StephenCovid-19 PCR (CVDTBH)on 20-05-3150STOC-CoV-2 (COVID-19) RNA RADHA+probe Ql (Unsp spec)Not detectedNormalNOT DETECTEDThe [facility] Comment on above:Result Comment: When diagnostic [...] for this test is supported by the Bottle Label Inspector of Health and Human Service's declaration that [...] longer be used).Performed By: #### CVDTBH #### [facility] [address] [place] [address] Dr. Ko StephenLACTATE/LACTIC ACIDon 48-17-9624Xlzhqoh [Moles/Vol]1.7 mmol/L Normal0.4-1.9The [facility] HospitalComment on above:Performed By: #### LACT #### [facility] [address] [place] [address] Dr. Ko StephenPOINT OF CARE GLUCOSEon 83-50-2038Rvsuxal [Mass/Vol]139 mg/dL Critically uvph53-791RfsTwin City HospitalComment on above:Performed By: #### POCGLUC #### [facility] [address] [place] [address] Dr. Ko StephenGlucose [Mass/Vol]99 mg/nHVguowr22-878KbmTwin City Hospital Comment on above:Performed By: #### LACT #### [facility] [address] [place] [address] Dr. Ko StephenPROF 14(COMP METB)on 96-70-8530Fcmkrgb [Mass/Vol]3.9 g/dLNormal 3.4-5.0The [facility] C HospitalComment on above:Performed By: #### CMP, CMADM, BNP #### [facility] [address] [address] [address] Ko StephenAlbumin/Globulin [Mass ratio]1.3 {ratio}NormalThe [facility] HospitalComment on above:Performed By: #### CMP, CMADM, BNP #### [facility] [address] [place] [address] Dr. Ko Aguilar [Catalytic activity/Vol]43 U/LCritically lpw42-852Xjx [facility] HospitalComment on above:Performed By: #### CMP, CMADM, BNP #### [facility] [address] [place] [address] Dr. Ko Diggs [Catalytic activity/Vol]34 U/SSywjva03-49Vvm [facility] HospitalComment on above:Performed By: #### CMP, CMADM, BNP #### [facility] [address] [place] [address] Dr. Ko Gatica gap [Moles/Vol]16.2 mmol/LNormalThe [facility] Comment on above:Performed By: #### CMP, CMADM, BNP #### [facility] [address] [place] [address] Dr. Ko Cortez [Catalytic activity/Vol]18 U/ZDheyfs06-39Fcx [facility] on above:Performed By: #### CMP, CMADM, BNP #### [facility] [address] [place] [address] Dr. Ko StephenBilirubin [Mass/Vol]0.2 mg/dLNormal0.2-1.0The [facility] Comment on above:Performed By: #### CMP, CMADM, BNP #### [facility] [address] [place] [address] Dr. Ko StephenCalcium [Mass/Vol]9.4 mg/dLNormal8.5-10.1[facility] Comment on above:Performed By: #### CMP, CMADM, BNP #### [facility] [address] [place] [address] Dr. Yilan ChangChloride [Moles/Vol]99 mmol/COvxgas57-778PhgTwin City Hospital Comment on above:Performed By: #### CMP, CMADM, BNP #### [facility] [address] [address] [address] Ko StephenCO2 [Moles/Vol]25.7 mmol/ANyzskz37.0-32.0The [facility] Comment on above:Performed By: #### CMP, CMADM, BNP #### [facility] [address] [address] [address] Ko StephenCreatinine [Mass/Vol]1.10 mg/dLCritically high0.55-1.02[facility] HospitalComment on above:Performed By: #### CMP, CMADM, BNP #### [facility] [address] [address] [address] Connell ChangEGFR-AF PRYDEINIG>60Normal>=60The [facility] HospitalComment on above:Performed By: #### CMP, CMADM, BNP #### [facility] [address] [address] [address] Ko HopsonGFR-NON AF XMOMPBWX52 mL/min/1.23l7Kvxqqcuoug low>=60The [facility] HospitalComment on above:Performed By: #### CMP, CMADM, BNP #### [facility] [address] [address] [address] Ko StephenGlobulin (S) [Mass/Vol]2.9 g/dLNormalThe [facility] HospitalComment on above:Performed By: #### CMP, CMADM, BNP #### [facility] [address] [address] [address] Ko StephenGlucose [Mass/Vol]97 mg/wECzlgss74-012JwnTwin City Hospital Comment on above:Performed By: #### CMP, CMADM, BNP #### [facility] [address] [address] [address] Ko StephenPotassium [Moles/Vol]3.9 mmol/LNormal3.5-5.1The [facility] Comment on above:Performed By: #### CMP, CMADM, BNP #### [facility] [address] [address] [address] Ko StephenProtein [Mass/Vol]6.8 g/dLNormal6.4-8.2The [facility] Comment on above:Performed By: #### CMP, CMADM, BNP #### [facility] [address] [address] [address] Ko Mirandaum [Moles/Vol]137 mmol/AXqmyev400-301Rtx [facility] Comment on above:Performed By: #### CMP, CMADM, BNP #### [facility] [address] [address] [address] Ko Villalba nitrogen [Mass/Vol]16.0 mg/dLNormal7.0-18.0The [facility] HospitalComment on above:Performed By: #### CMP, CMADM, BNP #### [facility] [address] [place] [address] Dr. Ko Villalba nitrogen/Creatinine [Mass ratio]14.5 mg/mgNormalThe [facility] HospitalComment on above:Performed By: #### CMP, CMADM, BNP #### [facility] [address] [place] [address] Dr. Ko Meadows RANDOM W/MICROSCOPICon 28-74-3205WQUKBMDHKAPN SEENNormalNONE SEENTwin City HospitalComment on above:Performed By: #### LACT #### [facility] [address] [place] [address] Dr. Ko Wayneirubin Ql (U)NegativeNormalNEGATIVEThe [facility] Comment on above:Performed By: #### LACT #### [facility] [address] [place] [address] Dr. Ko Carney SEENNormalNONE SEENTwin City HospitalComment on above:Performed By: #### LACT #### [facility] [address] [place] [address] Dr. Ko Raglandarity (U)CLEARNormalCLEARThe [facility] HospitalComment on above: Performed By: #### LACT #### [facility] [address] [address] [address] Ko Hernandezlor (U)LT. YELLOWNormalYELLOWTwin City HospitalComment on above:Performed By: #### LACT #### [facility] [address] [address] [address] Ko StephenCrystals LM Nom (Urine sed)NONE SEENNormalNONE SEENTwin City HospitalComment on above:Performed By: #### LACT #### [facility] [address] [address] [address] Connell ChangEpithelial cells LM Ql (Urine sed)NONE SEENNormalNONE SEEN /RARE The [facility] HospitalCommclaren lapeer region on above:Performed By: #### LACT #### [facility] [address] [place] [address] Dr. Ko StephenGlucose Ql (U)500 mg/dlAbwestern missouri mental health centeralNEGKing's Daughters Medical Center [place] on above:Performed By: #### LACT #### [facility] [address] [address] [address] Ko StephenHemoglobin Ql (U)TRACE-INTACTAbnormalNEGHolmes County Joel Pomerene Memorial HospitalCommclaren lapeer region on above:Performed By: #### LACT #### [facility] [address] [address] [address] Ko StephenKetones Ql (U)NegativeNormalNEGATIVETwin City HospitalCommclaren lapeer region on above:Performed By: #### LACT #### [facility] [address] [address] [address] Ko StephenLEUKOCYTESNegativeNormalNEGATIVETwin City HospitalCommclaren lapeer region on above:Performed By: #### LACT #### [facility] [address] [address] [address] Ko StephenMUCOUSNONE SEENNormalNONE SEENTwin City HospitalComment on above:Performed By: #### LACT #### [facility] [address] [address] [address] Ko StephenNitrite Ql (U)NegativeNormalNEGATIVETwin City HospitalComment on above:Performed By: #### LACT #### [facility] [address] [place] [address] Dr. Ko StephenpH (U)5.5 [pH]Normal5-9The [facility] HospitalComment on above: Performed By: #### LACT #### [facility] [address] [place] [address] Dr. Ko StephenZwmdaXWU2-5Chgwjc4-2Elx [facility] HospitalComment on above:Performed By: #### LACT #### [facility] [address] [place] [address] Dr. Ko StephenSPEC GRAVITY<=1.694Kmpwvmhb6.005-<=1.025The [facility] Comment on above:Performed By: #### LACT #### [facility] [address] [place] [address] Dr. Ko StephenUA PROTEINNegativeNormalNEGATIVE/ TRACEThe [facility] Comment on above:Performed By: #### LACT #### [facility] [address] [place] [address] Dr. Ko Bensonbilinogen Qn (U)0.2 {Rich'U}/dLNormal0.2 - 1.0The [facility] on above:Performed By: #### LACT #### [facility] [address] [place] [address] Dr. Ko StephenWBCNONE SEENNormalNONE SEENThe [facility] HospitalComment on above: Performed By: #### LACT #### [facility] [address] [place] [address] Dr. Ko StephenXR CHEST 2 Von 98-66-3404VH CHEST 2 VEXAMINATION: XR CHEST 2 V [...] Electronically authenticated by: LIAT MARISCAL Date: 2022-10-10 17:23[facility] HospitalXR wrist RT min 3V*on 27-53-8400BH wrist RT min 3V*[facility] embraase Other XR wrist RT min 3V*[facility] embraase Other XR wrist RT min 3V*April Lemons [facility] embraase Other XR wrist RT min 3V*VIVIEN Giron [address]Sjqft embraase Other XR wrist RT min 3V*XRay ReportLetart embraase Other XR wrist RT min 3V*SignedLetart embraase Other XR wrist RT min 3V*Patient: Kourtney Novak MR#: [id number] embraase Other XR wrist RT min 3V*[id number] embraase Other XR wrist RT min 3V*: 1975 Acct:[id number] [facility] Other XR wrist RT min 3V*Age/Sex: 46 / F ADM Date: 09/24/22 [facility] emb[employer] Other XR wrist RT min 3V*[place] [facility] [place]: Type: [facility] Other XR wrist RT min 3V*Attending Dr: Elyssa Gomes MD [facility] [employer] Other XR wrist RT min 3V*Copies to: Elyssa Gomes MD [employer] Other XR wrist RT min 3V*Ordering Provider: Elyssa Gomes MDLetart embraase Other XR wrist RT min 3V*Date of Service: 09/24/22Let[facility]raase Other XR wrist RT min 3V* XR/XR wrist RT min 3V*: Osteochondrosis of lunate of right wristLetart embraase Other XR wrist RT min 3V*RIGHT WRIST - 4 viewsLetart embraase Other XR wrist RT min 3V*CLINICAL HISTORY: Follow-up right wrist denervation and radial core decompressionLetart embraase Other XR wrist RT min 3V*COMPARISON: NoneDweho embraase Other XR wrist RT min 3V*FINDINGS:[employer] Other XR wrist RT min 3V*No focal soft tissue abnormality. 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 Triquetral fracture is unchanged. Mild degenerative changes without bony erosion.[employer] Other XR wrist RT min 3V* XR/XR wrist RT min 3V*[employer] Other XR wrist RT min 3V*IMPRESSION:[employer] Other XR wrist RT min 3V*NO SIGNIFICANT CHANGE IN WRIST FINDINGS.[employer] Other XR wrist RT min 3V*Impression dictated by: Rainer Martinez Jr., D.OEstefany09/24/2022 4:36 [facility] embraase Other XR wrist RT min 3V*Dictation Location: [place] [address] [employer] Other XR wrist RT min 3V*Transcribed By: PWS 09/24/22 [facility] [employer] Other XR wrist RT min 3V*Dictated By: Rainer Martinez Jr, DO 09/24/22 [facility] CenterZimplistic Other XR wrist RT min 3V*Signed By:[employer] Other XR wrist RT min 3V*09/24/22 [facility] HospitalNorth embraase Other Urine culture routineOrdered By: Jesus Gonzalez on 98-21-6098Ctnbhnpp identified Cx Nom (U)2 DaysKettering Health Hamilton Automated erythrocytes count in urine sediment (number/area)Ordered By: Jesus Gonzalez on 73-33-1807YGX Auto (Urine sed) [#/Area]3-4 [HPF]0-4FJ.W. Ruby Memorial HospitalAutomated leukocytes count in urine sediment (number/area)Ordered By: Jesus Gonzalez on 83-17-2666QAW Auto (Urine sed) [#/Area]None seen [HPF]0-4 [facility] HamiltonBilirubin Test strip Ql (U)Ordered By: Jesus Gonzalez on 01-18-4656Zcpljyjat Ql (U)NegativeNegativeKettering Health HamiltonColor Auto (U)Ordered By: Jesus Gonzalez on 75-56-3129Ychlf (U)YellowYellow [facility] HamiltonKetones Auto test strip (U) [Mass/Vol]Ordered By: Jesus Gonzalez on 28-22-9712Rqooyms (U) [Mass/Vol]NegativeNegativeKettering Health HamiltonLaboratory - UrinalysisOrdered By: Jesus Gonzalez on 71-66-1239Batexkb casts LM Ql (Urine sed)None seen [LPF]0-8[facility] Health HamiltonNitrite Test strip Ql (U)Ordered By: Jesus Gonzalez on 07-29-2022 Nitrite Ql (U)NegativeNegWVUMedicine Harrison Community HospitalProtein Auto test strip (U) [Mass/Vol]Ordered By: Jesus Gonzalez on 11-37-1445Hbkgfru (U) [Mass/Vol] NegativeNegativeUniversity Hospitals Ahuja Medical Centerpecific gravity Auto test strip (U) [Rel density]Ordered By: Jesus Gonzalez on 34-83-2110Mikdzsxv gravity (U) [Rel density]1.0131.001-1.030[facility] Ahuja Medical Centerquamous epithelial cells detection in urine sediment by light microscopyOrdered By: Jesus Gonzalez on 04-40-2280Goiuatflje cells.squamous LM Ql (Urine sed)None seen [HPF]0-2FJ.W. Ruby Memorial HospitalUrine bacteria detection by automated methodOrdered By: Jesus Gonzalez on 70-03-1556Ykbnuwyi Auto Ql (U)None seenNone SeenKettering Health HamiltonUrine clarity by refractometry automated Ordered By: Jesus Gonzalez on 12-09-5655Jsxrrdg Refractometry automated (U)Clear ClearKettering Health HamiltonUrine culture routineOrdered By: Jesus Gonzalez on 21-75-1909Omqbgkdf identified Cx Nom (U)2 DaysKettering Health HamiltonUrine glucose measurement by automated test strip (mass/volume)Ordered By: Jesus Gonzalez on 03-35-7997Afmhjeo Auto test strip (U) [Mass/Vol]>=1000 mg/dL NormalKettering Health HamiltonUrine hemoglobin detection by automated test stripOrdered By: Jesus Gonzalez on 53-97-4485Pawyafznju Auto test strip Ql (U) TraceNegativeKettering Health HamiltonUrine leukocyte esterase detection by automated test stripOrdered By: Jesus Gonzalez on 66-16-8070Npphownni esterase Auto test strip Ql (U)NegativeNegativeKettering Health Hamilton Urobilinogen Auto test strip (U) [Mass/Vol]Ordered By: Jesus Gonzalez on 07-29-2022 Urobilinogen (U) [Mass/Vol]Normal mg/dLNormalKettering Health HamiltonpH Auto test strip (U)Ordered By: Jesus Gonzalez on 02-15-8085rP (U)6.0 [pH]5.0-9.0 [facility] HamiltonAlbumin [Mass/volume] in Serum or PlasmaOrdered By: Jesus Gonzalez on 65-54-5223Nkykssy [Mass/Vol]4.0 g/dL3.2-5.5FJ.W. Ruby Memorial HospitalBasophils Auto (Bld) [#/Vol]Ordered By: Jesus Gonzalez on 50-48-2300Wkldxqsid (Bld) [#/Vol]0.0 10*3/uL0.0-0.2FJ.W. Ruby Memorial HospitalBasophils/100 WBC Auto (Bld)Ordered By: Jesus Gonzalez on 05-01-2022 Basophils/100 WBC (Bld)0.8 %.[facility] HamiltonBlood hemoglobin measurement (mass/volume)Ordered By: Jesus Gonzalez on 05-54-0144Auftbxvzai (Bld) [Mass/Vol]12.4 g/dL11.8-15.4FJ.W. Ruby Memorial HospitalBlood leukocytes automated count (number/volume)Ordered By: Jesus Gonzalez on 67-00-4470ZCL (Bld) [#/Vol]6.0 10*3/uL4.5-11.0[facility] HamiltonCholesterol [Mass/volume] in Serum or PlasmaOrdered By: Jesus Gonzalez on 65-66-4341Nqbulmlrbya [Mass/Vol]189 mg/kG880-788BbxyjfaqnKettering Health HamiltonComment on above: Chol less than 200 mg/dl low risk Chol 201-239 mg/dl borderline risk Chol 240 mg/dl and greater high riskChol less than 200 mg/dl low riskChol 201- 239 mg/dl borderline riskChol 240 mg/dl and greater high riskCholesterol in LDL Calc [Mass/Vol]Ordered By: Jesus Gonzalez on 52-42-1258Zbfiucrjrci in LDL [Mass/Vol]92 mg/dL0-100[facility] HamiltonComment on above:LDL ATP III CLASSIFICATION LDL less than 100 mg/dL Optimal LDL 100-129 mg/dL Near or above optimal LDL 130-159 mg/dL Borderline high LDL 160-189 mg/dL High LDL greater than 189 mg/dL Very highLDL ATP III CLASSIFICATIONLDL less than 100 mg/dL OptimalLDL 100-129 mg/dL Near or above wwqqpxjKYP975-202 mg/dL Borderline highLDL 160-189 mg/dL HighLDL greater than 189 mg/dL Very highCholesterol in VLDL Calc [Mass/Vol]Ordered By: Jesus Gonzalez on 61-87-3084Knzcynnqgzv in VLDL [Mass/Vol]19 mg/dLKettering Health HamiltonCreatinine and Glomerular filtration rate.predicted panel (S/P/Bld)Ordered By: Jesus Gonzalez on 05-01-2022 Creatinine [Mass/Vol]1.06 mg/dL0.44-1.03[facility] Eosinophils Auto (Bld) [#/Vol]Ordered By: Jesus Gonzalez on 53-74-6500Blgkbtafxgw (Bld) [#/Vol]0.1 10*3/uL0.0-0.45[facility] HamiltonEosinophils/100 WBC Auto (Bld)Ordered By: Jesus Gonzalez on 81-91-7684Lczsjlsormp/100 WBC (Bld)1.2 %.[facility] HamiltonErythrocyte distribution width Auto (RBC) [Ratio]Ordered By: Jesus Gonzalez on 45-62-0165Pvjvbifpycv distribution width (RBC) [Ratio]13.7 %11.9-15.3FJ.W. Ruby Memorial HospitalEstimated glomerular filtration rate (GFR) non- AmericanOrdered By: Jesus Gonzalez on 05-01-2022 GFR/1.73 sq M.predicted among non-blacks MDRD (S/P/Bld) [Vol rate/Area]56 mL/Min [facility] HamiltonGlobulin Calc (S) [Mass/Vol]Ordered By: Jesus Gonzalez on 51-46-4474Etvhhalk (S) [Mass/Vol]2.3 g/dLKettering Health HamiltonGlucose mean value [Mass/volume] in Blood Estimated from glycated hemoglobinOrdered By: Jesus Gonzalez on 24-66-7476Pcfkemh glucose Estimated from glycated hemoglobin (Bld) [Mass/Vol]117 mg/dLKettering Health Hamilton Hematocrit Auto (Bld) [Volume fraction]Ordered By: Jesus Gonzalez on 05-01-2022 Hematocrit (Bld) [Volume fraction]38.4 %34.0-46.4FJ.W. Ruby Memorial HospitalHemoglobin A1c percentageOrdered By: Jesus Gonzalez on 38-71-5830GxL8p (Bld) [Mass fraction]5.7 %4.3-5.6FJ.W. Ruby Memorial HospitalComment on above: Increased risk for diabetes: 5.7 - 6.4 diabetes: >6.4 glycemic control for adults with diabetes: <7.0Increased risk for diabetes: 5.7 - 6.4diabetes: >6.4glycemic control for adults with diabetes: <7.0Iron [Mass/volume] in Serum or PlasmaOrdered By: Jesus Gonzalez on 99-00-5614Uodk [Mass/Vol]48 ug/tX78-118DzjsaeoonKettering Health HamiltonLaboratory - Chemistry and Chemistry - challengeOrdered By: Jesus Gonzalez on 06-77-8201Tnjikibagcm peptide B (Bld) [Mass/Vol]7.0 pg/mL5-100[facility] - Hematology and Cell countsOrdered By: Jesus Gonzalez on 05-01-2022 Nucleated RBC/100 WBC (Bld) [Ratio]0.0 %0-0.5F[facility] Lymphocytes Auto (Bld) [#/Vol]Ordered By: Jesus Gonzalez on 08-61-1835Tiboyaxpxyl (Bld) [#/Vol]1.4 10*3/uL1.00-4.8[facility] HamiltonLymphocytes/100 WBC Auto (Bld)Ordered By: Jesus Gonzalez on 53-79-0414Thdtbackifz/100 WBC (Bld) 23.0 %.[facility]H Auto (RBC) [Entitic mass]Ordered By: Jesus Gonzalez on 34-06-4618ONM (RBC) [Entitic mass]28.9 pg24.7-34.3FJ.W. Ruby Memorial HospitalMCHC Auto (RBC) [Mass/Vol]Ordered By: Jesus Gonzalez on 92-31-6847UKGP (RBC) [Mass/Vol]32.4 g/dL32.0-35.0[facility] HamiltonMCV Auto (RBC) [Entitic vol]Ordered By: Jesus Gonzalez on 98-36-1322ASI (RBC) [Entitic vol]89.1 uE76-932XzhfclxrhKettering Health HamiltonMonocytes Auto (Bld) [#/Vol]Ordered By: Jesus Gonzalez on 67-64-9044Eofrhiimr (Bld) [#/Vol]0.6 10*3/uL 0.0-0.8[facility] HamiltonMonocytes/100 WBC Auto (Bld)Ordered By: Jesus Gonzalez on 67-73-2480Aaduvaftf/100 WBC (Bld)9.1 %.[facility] HamiltonNeutrophils Auto (Bld) [#/Vol]Ordered By: Jesus Gonzalez on 05-01-2022 Neutrophils (Bld) [#/Vol]4.0 10*3/uL1.8-7.7FJ.[facility]. [facility] Neutrophils/100 WBC Auto (Bld)Ordered By: Jesus Gonzalez on 05-01-2022 Neutrophils/100 WBC (Bld)65.9 %.[facility] HamiltonNo Panel InformationOrdered By: Jesus Gonzalez on 36-41-0046Eggeyybzd GFR () > 60 mL/MinKettering Health HamiltonComment on above:GFR estimated reference range: According to KDOQI guidelines, <60 ml/min/1.73m2 is sufficient todiagnose a patient with chronic kidney disease.Pharmacy Creatinine Clearance (ChemN/[facility] HospitalPlatelet mean volume Auto (Bld) [Entitic vol]Ordered By: Jesus Gonzalez on 11-77-6059Aybyqcmr mean volume (Bld) [Entitic vol]8.5 fL6.3-10.7FJ.W. Ruby Memorial HospitalPlatelets Auto (Bld) [#/Vol]Ordered By: Jesus Gonzalez on 91-86-0257Lhjvtsbky (Bld) [#/Vol]385 10*3/uL 150-450[facility] HamiltonProtein [Mass/volume] in Serum or Plasma Ordered By: Jesus Gonzalez on 11-34-6540Nerqlja [Mass/Vol]6.3 g/dL6.1-7.9[facility] HamiltonRBC Auto (Bld) [#/Vol]Ordered By: Jesus Gonzalez on 66-32-7648LIB (Bld) [#/Vol]4.31 10*6/uL3.60-5.00[facility]ja Medical Centererum or plasma alanine aminotransferase measurement without P-5'-P (enzymatic activiOrdered By: Jesus Gonzalez on 75-36-5363KXS No additional P-5'-P [Catalytic activity/Vol]22 U/B30-35XygtdzketUniversity Hospitals Ahuja Medical Centererum or plasma albumin/globulin mass ratioOrdered By: Jesus Gonzalez on 05-01-2022 Albumin/Globulin [Mass ratio]1.7 {ratio}[facility] Centererum or plasma alkaline phosphatase measurement (enzymatic activity/volume)Ordered By: Jesus Gonzalez on 70-40-9345AZZ [Catalytic activity/Vol]52 U/J10-77MgpxywqhsUniversity Hospitals Ahuja Medical Centererum or plasma aspartate aminotransferase measurement (enzymatic activity/volume)Ordered By: Jesus Gonzalez on 46-10-8381RIO [Catalytic activity/Vol]17 U/B69-69MdqmfgxppUniversity Hospitals Ahuja Medical Centererum or plasma calcium measurement (mass/volume)Ordered By: Jesus Gonzalez on 31-58-8252Cokbrun [Mass/Vol] 9.5 mg/dL8.2-10.2FKettering Health Miamisburgerum or plasma chloride measurement (moles/volume)Ordered By: Jesus Gonzalez on 49-61-5196Rwiuqxpe [Moles/Vol]100 mmol/J55-825LczarqppyUniversity Hospitals Ahuja Medical Centererum or plasma glucose measurement (mass/volume)Ordered By: Jesus Gonzalez on 33-92-7325Fcqghow [Mass/Vol]96 mg/kQ54-352BwxjlcvgqKettering Health HamiltonComment on above:ADA recommended reference range Random Glucose [...] (HDL) cholesterol measurementOrdered By: Jesus Gonzalez on 99-80-5793Tfltypngqrz in HDL [Mass/Vol]78 mg/nX85-01WiidkgtmoKettering Health HamiltonComment on above:HDL CHOL ATP-III CLASSIFICATION Cardiovascular Risk HDL > or equal to 60 mg/dL LOW HDL < 40 mg/dL HIGHHDL CHOL ATP-III CLASSIFICATION Cardiovascular RiskHDL > or equal to 60 mg/dL LOWHDL < 40 mg/dL HIGHSerum or plasma potassium measurement (moles/volume)Ordered By: Jesus Gonzalez on 30-11-8135Dpaxqhscu [Moles/Vol]4.2 mmol/L3.5-5.1FKettering Health Miamisburgerum or plasma sodium measurement (moles/volume)Ordered By: Jesus Gonzalez on 69-40-7848Tmzinz [Moles/Vol]134 mmol/L 136-146[facility] Medical Centererum or plasma thyroxine (T4) measurement (mass/volume)Ordered By: Jesus Gonzalez on 06-37-3358E2 [Mass/Vol]9.20 ug/dL5.39-11.82[facility] Medical Centererum or plasma total bilirubin measurement (mass/volume)Ordered By: Jesus Gonzalez on 32-85-1461Swdnhvxeh [Mass/Vol]0.4 mg/dL0.3-1.2FKettering Health Miamisburgerum or plasma total carbon dioxide measurement (moles/volume)Ordered By: Jesus Gonzalez on 05-01-2022 CO2 [Moles/Vol]24.2 mmol/L22.0-30.0[facility] Medical Centererum or plasma total cholesterol/high density lipoprotein (HDL) cholesterol mass rat Ordered By: Jesus Gonzalez on 15-55-4756Ozfbexrzsio.total/Cholesterol in HDL [Mass ratio]2.4 {ratio}<5.0[facility] Medical Centererum or plasma urea nitrogen measurement (mass/volume)Ordered By: Jesus Gonzalez on 61-71-7380Zezu nitrogen [Mass/Vol]14 mg/dL9-23[facility] HamiltonTSH DL <= 0.005 mIU/L QnOrdered By: Jesus Gonzalez on 66-70-1847QKK Qn3.07 m[IU]/L0.45-5.33 [facility] HamiltonTriglyceride [Mass/volume] in Serum or Plasma Ordered By: Jesus Gonzalez on 41-30-0709Cxiesurowpin [Mass/Vol]97 mg/qC24-082 [facility] HamiltonComment on above:TRIG ATP III CLASSIFICATION TRIG less [...] method.Triiodothyronine (T3) resin uptake testOrdered By: Jesus Gonzlaez on 46-83-2254A2IH97 %24-39[facility] HamiltonComment on above: Performed at: - [facility] [address] [place], [place] [address] [employer]: Maxim Daniel PhD, Phone: [phone] at: [facility] [id number] [place], [place] [id number] Director: Maxim Daniel PhD, Phone: [phone] wrist RT 2Von 92-78-3908HO wrist RT 2V[facility] embraase Other XR wrist RT 2VFRChapman [facility] Center embraase Other XR wrist RT [address] [place] [address] embraase Other XR wrist RT 2[place]SMilligan, [place] [address]Lrcyz embraase Other XR wrist RT [facility]XRBapt[facility] emb[facility] Other XR wrist [facility] 2[facility]SS[facility] Other XR wrist RT 2VPatient: Kourtney Novak MR#: [id number] [facility] Cliq Other XR wrist RT [id number] embraase Other XR wrist RT 2VDOB: 1975 Acct:[id number] embraase Other XR wrist RT 2VAge/Sex: 46 / F ADM Date: 01/24/22Letart embraase Other XR wrist RT 2VLoc: SOXD Room: Type: [facility] embraase Other XR wrist RT 2VAttending Dr: Elyssa Gomes MDLetart embraase Other XR wrist RT 2VOrdering Provider: Elyssa Gomes MD [facility] [employer] Other XR wrist RT 2VDate of Service: 01/24/22[facility] emb[employer]ase Other XR wrist RT 2VAccession #: ([id number] XR/XR wrist RT 2V: Osteochondrosis of lunate of right wristLetart embraase Other XR wrist RT 2VCopies to: Elyssa Gomes MDLetart embraase Other XR wrist RT 2VRight wrist 01/24/2022.[employer] Other xr wrist RT 2VCLINICAL DATA: Osteochondrosis of lunate of right wrist.[employer] [facility] [employer] Other xr wrist RT 2VFINDINGS: 2 views of the right wrist were obtained and are compared with a prior study 12/24/2021.[employer] [facility] [employer] Other xr wrist RT 2VNo acute fracture or dislocation is identified. The lunate again appears sclerotic. This findingLetart embraase Other xr wrist RT 2Vhas not significantly changed. No collapse is seen. No soft tissue swelling is visualized.[facility] Other xr wrist RT 2VORDER #: [id number] XR/XR wrist RT 2V [facility] Other xr wrist RT 2VIMPRESSION: Sclerotic lunate, not significantly changed.[facility] Other xr wrist RT 2VImpression dictated by: Brody Marks Jr., M.D.01/24/2022 3:00 [facility] embraase Other xr wrist RT 2VDictation Location: [id number] embraase Other xr wrist RT 2VTranscribed By: GRACIE 01/24/22 1500[place] [employer] Other xr wrist RT 2VDictated By: Brody Marks Jr, MD 01/24/22 1454[place] [employer] Other xr wrist RT 2VSigned By:[employer] [facility] [employer] Other XR wrist RT 2V01/24/[address] [place] [address] embraase Other XR wrist RT min 3V*on 91-16-1551YW wrist RT min 3V* [facility] embraase Other XR wrist RT min 3V*[facility] embraase Other XR wrist RT min 3V*April Lemons [facility] Cliq Other XR wrist RT min 3V*[place] [address]Rlfsx embraase Other XR wrist RT min 3V*XRay [facility] Cliq Other XR wrist RT min 3V*[facility] embraase Other XR wrist RT min 3V*Patient: Kourtney Novak MR#: [id number] embraase Other XR wrist RT min 3V*[id number] embraase Other XR wrist RT min 3V*: 1975 Acct:[id number] [facility] [employer] Other XR wrist RT min 3V*Age/Sex: 46 / F ADM Date: 11/20/21 [employer] [facility] [employer] Other XR wrist RT min 3V*Loc: SOXD Room: Type: [facility] embraase Other XR wrist RT min 3V*Attending Dr: Elyssa Gomes MD [employer] [facility] [employer] Other XR wrist RT min 3V*Ordering Provider: Elyssa Gomes MDLetart embraase Other XR wrist RT min 3V*Date of Service: 11/20/21Dweho embraase Other XR wrist RT min 3V* XR/XR wrist RT min 3V*: Other specified postproceduralLetart embraase Other XR wrist RT min 3V*states;Osteochondrosis of lunLetart embraase Other XR wrist RT min 3V*Copies to: Elyssa Gomes MD [employer] Other XR wrist RT min 3V*4 viewsRIGHT wrist plain filmLetart embraase Other XR wrist RT min 3V*COMPARISON:NoneLetart embraase Other XR wrist RT min 3V*HISTORY:Status post RIGHT wrist degeneration with previous core decompressionLetart embraase Other XR wrist RT min 3V*Sclerotic changes of the lunate present. No collapse identified. Calculi metacarpal bonesLetart embraase Other XR wrist RT min 3V*identified. No soft tissue abnormality seen.[employer] [facility] [employer] Other XR wrist RT min 3V* XR/XR wrist RT min 3V*[employer] [facility] [employer] Other XR wrist RT min 3V*IMPRESSION:Sclerotic changes of the lunate. Adequate bony alignment. No collapse.[employer] [facility] [employer] Other XR wrist RT min 3V*Impression dictated by: George Gray M.D.11/20/2021 3:59 [facility]Ncapital [facility] embra[facility] Other XR wrist RT min 3V*Dictation Location: [facility]--11 [employer] [facility] [employer] Other XR wrist RT min 3V*Transcribed By: GRACIE 11/20/21 [facility] [employer] Other XR wrist RT min 3V*Dictated By: George Gray DO 11/20/[address] [place] [address] embraase Other XR wrist RT min 3V*Signed By:[employer] Other XR wrist RT min 3V*11/20/21 [facility] CenterLetart embraase Other XR wrist RT min 3V*on 83-24-9738FY wrist RT min 3V* [facility] embraase Other XR wrist RT min 3V*[facility] embraase Other XR wrist RT min 3V*[address] [facility] embraase Other XR wrist RT min 3V*[place] [address]Auvrm embraase Other XR wrist RT min 3V*XRay [facility] embraase Other XR wrist RT min 3V*[facility] embraase Other XR wrist RT min 3V*Patient: Kourtney Novak MR#: [id number] embraase Other XR wrist RT min 3V*[id number] embraase Other XR wrist RT min 3V*: 1975 Acct:[id number] [facility] [employer] Other XR wrist RT min 3V*Age/Sex: 45 / F ADM Date: 08/28/21 [facility] Other XR wrist RT min 3V*[place] [facility] [place]: Type: [facility] embraase Other XR wrist RT min 3V*Attending Dr: Elyssa Gomes MD [facility] [employer] Other XR wrist RT min 3V*Ordering Provider: Elyssa Gomes MDLetart embraase Other XR wrist RT min 3V*Date of Service: 08/28/21[facility] Other XR wrist RT min 3V* XR/XR wrist RT min 3V*: M92.211[place] Other XR wrist RT min 3V*Copies to: Elyssa Gomes MD [employer] Other XR wrist RT min 3V*RIGHT WRIST - 4 viewsNowashington [facility] Other XR wrist RT min 3V*CLINICAL DATA: Right wrist pain and decreased range of motion. No injury.[employer] Other XR wrist RT min 3V*COMPARISON: 11/15/2020 and MRI 11/15/2020[facility] Other XR wrist RT min 3V*AP, lateral, oblique and ulnar deviation views were obtained. There is no acute fracture [facility] HospitalQuofore Other XR wrist RT min 3V*dislocation. Minor sclerosis is again seen at the lunate where there is also subchondral cysticNowashington university medical center embraase Other XR wrist RT min 3V*change medially. This is similar to the prior. There is no developing joint space narrowing [facility] HospitalQuofore Other XR wrist RT min 3V*hypertrophy. No prominent soft tissue swelling is noted.[employer] [facility] [employer] Other XR wrist RT min 3V* XR/XR wrist RT min 3V*[employer] [facility] [employer] Other XR wrist RT min 3V*IMPRESSION:[employer] [facility] [employer] Other XR wrist RT min 3V*BONY CHANGES AT THE LUNATE, SIMILAR TO THE COMPARISON.[facility] [employer] Other XR wrist RT min 3V*NO ACUTE FINDINGS.[facility] [employer] Other XR wrist RT min 3V*Impression dictated by: Trixie Irizarry M.D.08/28/2021 4:42 [facility]ITALQuofore Other XR wrist RT min 3V*Dictation Location: [place] [address] [employer] [facility] [employer] Other XR wrist RT min 3V*Transcribed By: GRACIE 08/28/21 1642 [facility] [employer] Other XR wrist RT min 3V*Dictated By: Trixie Irizarry MD 08/28/21 1639[employer] Other XR wrist RT min 3V*Signed By:[employer] [facility] [employer] Other xr wrist RT min 3V*08/28/21 1648Zimplistic Other XR FOOT 3V AP/LAT/OBL BILon 00-29-8058SP FOOT 3V AP/LAT/OBL TODD* * *Final Report* [...] tissues. No other significant abnormality. IMPRESSION: NORMAL Solvent Process Extractor Operator: GUANACO Transcribe Date/Time: Mar 04 2021 2:52P Dictated by : TOBI HERRMANN MD This examination was interpreted and the report reviewed and electronically signed by: TOBI HERRMANN MD on Mar 04 2021 2:57PM EST [id number] [facility] HospitalXR HAND 3V PA/LAT/OBL BILon 03-04-2021 XR HAND [...] REMOTE FRACTURES OF THE LEFT WRIST DESCRIBED Solvent Process Extractor Operator: GUANACO Transcribe Date/Time: Mar 04 2021 2:57P Dictated by : TOBI HERRMANN MD This examination was interpreted and the report reviewed and electronically signed by: TOBI HERRMANN MD on Mar 04 2021 2:59PM EST [id number] Vital Signs Date TimeVital SignValuePerforming MdsrvejcfHbnbokuc10-77-7681 14:11-0400Body mass index (BMI) [Ratio]40.77 kg/m2Sean Greene MD Work Phone: [facility] HospitalFwpziwjzva40-73-2030 14:11-0400Body .13 kgSean Greene MD Work Phone: [facility] HospitalXexeoazemo78-79-2083 13:49-0400Body .1 cmKgirish Mayberry DMD Work Phone: [facility]10-14-2025 13:49-0400Body mass index (BMI) [Ratio]40.77 kg/s2ZvkiaJonathan Mayberry DMD Work Phone: [facility]10-14-2025 13:49-0400Body surface area Derived from formula2.26 k6Htivegirish Mayberry DMD Work Phone: [phone])[address]10-14-2025 13:49-0400Body nskhqbicdzx77.2 [degF]Jonathan Mayberry DMD Work Phone: [phone] [place], [place] [address]10-14-2025 13:49-0400Body qniooi489.13 kgJonathan aMyberry DMD Work Phone: [phone])[address] [place], [place] [address]10-14-2025 13:49-0400Diastolic blood dthrqywz98 mm[Hg]Jonathan Mayberry DMD Work Phone: [phone])[address] [place], [place] [address]10-14-2025 13:49-0400Heart rate88 /Heatehr Mayberry DMD Work Phone: [phone])[address] [place], [place] [address]10-14-2025 13:49-0400Systolic blood mm[Hg]Jonathan Mayberry DMD Work Phone: [phone])[address] [place], [place] 8409409-22-2025 22:31-0400Diastolic blood slcbofrj28 mm[Hg]Jesus Gonzalez MD Work Phone: 1(883)817-[address] [place], [place] 7556309-22-2025 22:31-0400 Heart rate74 /Beverly Gonzalez MD Work Phone: [phone])[address]09-22-2025 22:31-0400 Respiratory rate16 /Beverly Gonzalez MD Work Phone: 1(480)250-[address] [place], [place] 7556309-22-2025 22:31-0400 SaO2% (BldA) [Mass fraction]99 %Jesus Gonzalez MD Work Phone: 1([phone])369-[address] [place], [place] 7556309-22-2025 22:31-0400 Systolic blood aoryfvea123 mm[Hg]Jesus Gonzalez MD Work Phone: 1(434)737-[address] [place], [place] 7556309-22-2025 20:19-0400 Body bpabgv960.56 cmDoerik Gonzalez MD Work Phone: [phone])[address]09-22-2025 20:19-0400 Body mqmbmowtvzz61.3 [degF]Jesus Gonzalez MD Work Phone: [facility]09-22-2025 20:19-0400 Body ucufey067.39 kgJesus Gonzalez MD Work Phone: [facility]09-22-2025 17:46-0400 Body mass index (BMI) [Ratio]42.27 kg/j9LqcyrhtLamar Dorsey RENAL TECHNICIAN Work Phone: [phone] HospitalBrmqidhvjs75-89-0628 17:46-0400Body temperature 98.71 [degF]Lamar Dorsey RENAL TECHNICIAN Work Phone: [phone] [place], [place] [address]Oxawutdzqw19-74-2476 17:46-0400Body klqqbi288.21 kgLamar Dorsey RENAL TECHNICIAN Work Phone: [phone] [place], [place] [address]Okafbrtchg59-61-4646 17:46-0400Diastolic blood gtboljxf38 mm[Hg]Lamar Dorsey RENAL TECHNICIAN Work Phone: [phone] [place], [place] [address]Ahkghyzagn67-33-3617 17:46-0400Heart rate88 /min Lamar Dorsey RENAL TECHNICIAN Work Phone: [phone] [place] [address]-22-2025 17:46-0400Respiratory rate20 /minLamar Dorsey RENAL TECHNICIAN Work Phone: 1(114)025-[address] [place], [place] [address]Aqsbsgrbmo35-85-4983 17:46-5633YeN1% (BldA) [Mass fraction]99 %Lamar Dorsey RENAL TECHNICIAN Work Phone: [facility] HospitalGjjwiftzxw63-71-8967 17:46-0400Systolic blood kkuobszm564 mm[Hg]Lamar Dorsey RENAL TECHNICIAN Work Phone: 1([phone])683-[address] [place] [address]-10-2025 14:51-0400Body ldpmuy732.1 cmSusan Rice WHCNP Work Phone: [facility]09-10-2025 14:51-0400Body mass index (BMI) [Ratio]40.77 kg/c6Glelv Rice WHCNP Work Phone: [facility]09-10-2025 14:51-0400Body tiyyfp957.13 kgSusan Rice WHCNP Work Phone: 1(109)774-[address] [place], [place] 54[address]309-10-2025 14:51-0400Diastolic blood ibyuydad35 mm[Hg]Zulema MATSONCNP Work Phone: 1(384)[address]09-10-2025 14:51-0400Heart rate88 /Edgar MATSONCNP Work Phone: 1(333)[address] [place], [place] 8[address]409-10-2025 14:51-0400Respiratory rate18 /Edgar MATSONCNP Work Phone: 1(391)[address] [place], [place] 8409409-10-2025 14:51-9670JoD1% (BldA) [Mass fraction]98 %Zulema MATSONCNP Work Phone: 1(878)[address] [place], [place] 8409409-10-2025 14:51-0400Systolic blood jxqpiynx056 mm[Hg]Zulema EDWARDSP Work Phone: [phone])[address] [place], [place] 8[address]-09-2025 13:21-0400Body mass index (BMI) [Ratio]41.27 kg/y1Algkyxq Cosmo RENAL TECHNICIAN Work Phone: [facility] HospitalMsmgyuxboh01-90-1349 13:21-0400Body temperature 98.29 [degF]Yola Wilburn RENAL TECHNICIAN Work Phone: [facility] HospitalJftzknbnfo72-95-7882 13:21-0400Body gnyjts556.49 kgLinsherrymary Cosmo RENAL TECHNICIAN Work Phone: [phone] HospitalFwtnhegxgs46-94-0640 13:21-0400Diastolic blood ijcxrvzt06 mm[Hg]Yola Wilburn RENAL TECHNICIAN Work Phone: [facility] HospitalEdvvdnghfe10-94-6651 13:21-0400Heart rate74 /min Yola Wilburn RENAL TECHNICIAN Work Phone: [facility] HospitalAxvemfwteb68-62-7045 13:21-4566ThN7% (BldA) [Mass fraction]98 %Yola Wilburn RENAL TECHNICIAN Work Phone: [facility] HospitalAzbkurlvsj15-04-8573 13:21-0400Systolic blood ubizefdi527 mm[Hg]Yola Wilburn RENAL TECHNICIAN Work Phone: [facility] HospitalLbpxyeikza03-04-6520 12:03-0400Body mass index (BMI) [Ratio]40.83 kg/b7Ldvkjw Appointments Work Phone: [facility]07-02-2025 12:03-0400Body .3 kgFellow Appointments Work Phone: [facility] SystemComment on above:with -99-2847 12:03-0400Diastolic blood mm[Hg]Fellow Appointments Work Phone: [facility] SystemComment on above: jkfymxxp89-91-2435 12:03-0400Heart rate82 /minFellow Appointments Work Phone: [facility]07-02-2025 12:03-0400Respiratory rate 18 /minFellow Appointments Work Phone: [facility]07-02-2025 12:03-7400WlX5% (BldA) [Mass fraction]99 %Fellow Appointments Work Phone: [facility]07-02-2025 12:03-0400Systolic blood dvtxpbol276 mm[Hg]Fellow Appointments Work Phone: [facility] SystemComment on above: hfrnjyhu20-42-9287 13:17-0400Body npabrp113.1 cmSusan Rice CNP Work Phone: [facility]06-30-2025 13:17-0400Body mass index (BMI) [Ratio]40.77 kg/u1Acdaq Rice WHCNP Work Phone: [phone]06-30-2025 13:17-0400Body dhbiuj713.13 kgSusan Rice WHCNP Work Phone: [phone]06-30-2025 13:17-0400Diastolic blood uauouhbm53 mm[Hg]Zulema EDWARDSP Work Phone: [facility]06-30-2025 13:17-0400Heart rate76 /Edgar EDWARDSP Work Phone: [phone])[address]06-30-2025 13:17-0400Respiratory rate16 /Edgar EDWARDSP Work Phone: [phone])[address]06-30-2025 13:17-1076KyV7% (BldA) [Mass fraction]97 %Zulema EDWARDSP Work Phone: [phone] [place], [place] 8409406-30-2025 13:17-0400Systolic blood birmukvy631 mm[Hg]Zulema EDWARDSP Work Phone: [phone] [place], [place] 8409406-23-2025 10:11-0400Body mass index (BMI) [Ratio]39.95 kg/m2[facility]06-23-2025 10:11-0400Body .19 [degF][facility]06-23-2025 10:11-0400Body ponwzh379.9 [facility] 03-06-2025 10:11-0400Diastolic blood mm[Hg][facility]06-23-2025 10:11-0400Heart rate93 /[facility] 03-06-2025 10:11-0400Respiratory rate18 /Rachanamarilyn [facility] 03-06-2025 10:11-3903KvV9% (BldA) [Mass fraction]100 %[facility] CampusComment on above:iv12-75-6798 10:11-0400Systolic blood jogwghse189 mm[Hg] [facility]06-09-2025 15:51-2726TsX8% (BldA) [Mass fraction] 98 %ERIK [facility] CenterComment on above:Order Comment: Specimen Type: ARTERIAL BLOOD SPECIMENOrdering Facility: [facility]Address: [address] [id number] By: #### ALLMG ####[facility] LABIA [id number] [facility] [address] [place], [place] 7670706-09-2025 13:28-1264YgL4% (BldA) [Mass fraction]99 %ERIK RECINOSMercy Health Perrysburg HospitalComment on above:Order Comment: Specimen Type: ARTERIAL BLOOD SPECIMENOrdering Facility: [facility]ENTERAddress: [address] [place], [place] [address]Performed By: #### ALLMG ####[facility] HOSPITALIA [id number] [facility] X[address] [place], [place] [address]306-03-2025 07:42-0400Body height 163.8 cmPacc 2 Work Phone: [facility]06-03-2025 07:42-0400Body mass index (BMI) [Ratio]40.98 kg/m2Pacc 2 Work Phone: [facility]06-03-2025 07:42-0400Body temperature 98.71 [degF]Pacc 2 Work Phone: [facility]06-03-2025 07:42-0400Body rulnmy534 kg Pacc 2 Work Phone: [facility]06-03-2025 07:42-0400Diastolic blood odtgfrfc84 mm[Hg]Pacc 2 Work Phone: [facility]06-03-2025 07:42-0400Heart rate80 /min Pacc 2 Work Phone: [facility]06-03-2025 07:42-0400Respiratory rate 16 /minPacc 2 Work Phone: [facility]06-03-2025 07:42-8295ArA1% (BldA) [Mass fraction]96 %Pacc 2 Work Phone: [facility]06-03-2025 07:42-0400Systolic blood ouyvmwrd745 mm[Hg]Pacc 2 Work Phone: [facility]04-16-2025 09:34-0400Body mass index (BMI) [Ratio]41.06 kg/z9JuhynZulema Wood MD Work Phone: [facility]04-16-2025 09:34-0400Body jsfenu300.2 kgZulema Wood MD Work Phone: [facility]04-16-2025 09:34-0400Diastolic blood mm[Hg]Zulema Wood MD Work Phone: [facility]04-16-2025 09:34-0400Heart nmhb953 /minSandrew Wood MD Work Phone: [facility]04-16-2025 09:34-0400Systolic blood vlpjmemn498 mm[Hg]Zulema Wood MD Work Phone: [facility]10-30-2024 17:34-0400Body mass index (BMI) [Ratio]40.77 kg/m2Estevan Polanco RENAL TECHNICIAN Work Phone: [facility] SouthShoqcaqzpn63-06-0347 17:34-0400Body temperature 98.71 [degF]Estevan Polanco RENAL TECHNICIAN Work Phone: [facility]OC[facility] SouthPiutatocyj32-44-3016 17:34-0400Body hewifp244.13 kgEstevan Polanco RENAL TECHNICIAN Work Phone: [facility]OC[facility] SouthXbygmkdttp06-83-5220 17:34-0400Diastolic blood ebqcetft60 mm[Hg]Estevan Polanco RENAL TECHNICIAN Work Phone: [facility]OC[facility] SouthRopegkeryo34-62-0887 17:34-0400Heart rate87 /min Estevan Polanco RENAL TECHNICIAN Work Phone: [facility]OC[facility] SouthCrvaidkahf46-19-6344 17:34-3837YzV1% (BldA) [Mass fraction]99 %Estevan Polanco RENAL TECHNICIAN Work Phone: NOCox SouthWbycddwtxd33-42-8745 17:34-0400Systolic blood ovexxhcq731 mm[Hg]Estevan Polanco RENAL TECHNICIAN Work Phone: [facility] HospitalCfscaabgkw41-43-5342 09:38-0400Body mass index (BMI) [Ratio]40.61 kg/b3RlcbwZulema Wood MD Work Phone: [facility]09-16-2024 09:38-0400Body dbgrak243 kg Zulema Wood MD Work Phone: [facility]09-16-2024 09:38-0400Diastolic blood plteccze01 mm[Hg]Zulema Wood MD Work Phone: [facility]09-16-2024 09:38-0400Heart rate87 /min Zulema Wood MD Work Phone: [facility]09-16-2024 09:38-0400Respiratory rate 18 /minSandrew Wood MD Work Phone: [facility]09-16-2024 09:38-0400Systolic blood mm[Hg]Zulema Wood MD Work Phone: [facility]10-17-2023 10:52-0400Body uuxspv157 cm Erik Pineda MD Work Phone: UProvidence HospitalPrmvyv52-14-5070 10:52-0400Body temperature 98.71 [degF]Erik Pineda MD Work Phone: WProvidence HospitalFdnxwq54-21-8878 10:52-0400Body .88 kgErik Pineda MD Work Phone: [phone] HospitalKibeff99-81-4833 10:52-0400Diastolic blood noivnblk29 mm[Hg]Erik Pineda MD Work Phone: [phone] Health Bryan HospitalJrhqbb67-96-9167 10:52-0400Heart jeer706 /minErik Pineda MD Work Phone: [place] Spmzxs64-32-8338 10:52-0400Respiratory rate 18 /minErik Pineda MD Work Phone: [place] Gdhwys29-82-2731 10:52-6097OiB6% (BldA) [Mass fraction]97 %Erik Pineda MD Work Phone: cProvidence HospitalYuhhyt92-74-3785 10:52-0400Systolic blood zdsbdyez210 mm[Hg]Erik Pineda MD Work Phone: cProvidence HospitalNogazc54-35-5198 07:10-0400Body ixvzrg736.1 cmMD Jesus Gonzalez Work Phone: [facility]08-23-2023 07:10-0400 Body vvlzti733.05 kgMD Jesus Gonzalez Work Phone: [facility]07-18-2023 09:30-0400 Body .1 cmCjoni Adiafede Other [employer] Other 07-18-2023 09:30-0400Body mass index (BMI) [Ratio] 36.94 kg/d0Yabpkgi Earlinepiedad Other [employer] Other 07-18-2023 09:30-0400Body jimqjm472.7 kgCamseemamarie Adiatty Other [employer] Other 07-18-2023 09:30-0400Diastolic blood lsswkuny64 mm[Hg] Russell Shields Other [employer] Other 07-18-2023 09:30-0400Systolic blood liwqxaek175 mm[Hg] Russell Difede Other [employer] Other 01-16-2023 15:28-0500Body ytpdjp571.08 kgZulema Wood MD Work Phone: [facility]01-16-2023 15:28-0500Diastolic blood lgdbpkyn77 mm[Hg]Zulema Wood MD Work Phone: [facility]01-16-2023 15:28-0500Heart rate99 /min Zulema Wood MD Work Phone: [facility]01-16-2023 15:28-0500Systolic blood okhenwkx742 mm[Hg]Zulema Wood MD Work Phone: [facility]11-03-2022 15:45-0400Body .1 cmJeharmony Bowles Other [employer] Other 07-18-2022 14:00-0400Body .1 cmJeharmony Bowles Other [employer] Other 07-18-2022 14:00-0400Body mass index (BMI) [Ratio]39.6 kg/p5Ysnjxmzwharmony Bowles Other [employer] Other 07-18-2022 14:00-0400Body halntp584.96 kgJenntre Bowles Other [employer] Other 05-16-2022 14:15-0400Body mnnkix945.1 cmBeti Bowles Other [employer] Other 05-16-2022 14:15-0400Body mass index (BMI) [Ratio] 39.93 kg/b3Pvbbmtiatre Bowles Other [employer] Other 05-16-2022 14:15-0400Body itmmxd988.86 kgJeharmony Bowles Other [employer] Other 05-09-2022 11:03-0400Body hbauqm090.1 Nabil Wood MD Work Phone: [facility]05-09-2022 11:03-0400Body .06 kgZulema Wood MD Work Phone: [facility]05-09-2022 11:03-0400Diastolic blood zmmexdsl77 mm[Hg]Zulema Wood MD Work Phone: [facility]05-09-2022 11:03-0400Heart dvrz879 /minSandrew Wood MD Work Phone: [facility]05-09-2022 11:03-0400Systolic blood mm[Hg]Zulema Wood MD Work Phone: [facility]03-09-2022 16:15-0500Body wsojgv719.1 Raphael Gomes Other [employer] Other 03-09-2022 16:15-0500Body mass index (BMI) [Ratio] 39.93 kg/l2Mehvjyobryant Gomes Other [employer] Other 03-09-2022 16:15-0500Body uairum820.86 kgCollbryant Gomes Other [employer] Other 01-25-2022 15:15-0500Body nqodsj943.1 Ulissesollbryant Gomes Other [employer] Other 01-25-2022 15:15-0500Body mass index (BMI) [Ratio] 39.43 kg/r4Jmmddmw Calvmary Other [employer] Other 01-25-2022 15:15-0500Body kaeykc424.5 kgCollbryant Gomes Other [employer] Other 12-15-2021 16:15-0500Body fihfbk670.1 Ulissesollbryant Gomes Other [employer] Other 12-15-2021 16:15-0500Body mass index (BMI) [Ratio] 38.77 kg/k9NnswfamElyssa Gomes Other [employer] Other 12-15-2021 16:15-0500Body lgiczj915.69 kgCojoe Gomes Other [facility] Other Encounters Encounter DateEncounter TypeCare ProviderFacilityStart: 07-17-2025 End: 86-30-1968Bvwpnee encounter procedureJesus Langston MD-Electrodiagnostics Work Phone: Start: 07-17-2025 End: 73-31-8051nqtdsplygeTwrcfmw M Hoy MD Work Phone: [phone]-MzpbsbmmgkzdlhhpehGqdgg: 07-12-2025 End: 87-03-3805vxpeavftkcOxoghxx M Hoy MD Work Phone: [phone]-Enwqhxjzl Health OrthopedicsStart: 07-12-2025 End: 09-77-0310Zeghqou encounter procedureCojoe Gomes MD-[facility] Work Phone: Start: 07-10-2025 End: 43-06-8218Tzppca outpatient new 30 minutesToanais Greene MD Work Phone: [facility] [place]io AllergyComment on above:Recurrent sinus infections (Primary Dx); Obstructive sleep apneaStart: 07-10-2025 End: 99-70-2436aztftjitqqXCRP E CESARBASEKNot AvailableStart: 07-10-2025 End: 20-58-1888Ocmvsq flowsheetSean Greene MD Work Phone: [facility] [place] AllergyStart: 07-10-2025 End: 19-81-4131Qzgypy flowsheetSean Greene MD Work Phone: [facility] [place] AllergyStart: 07-10-2025 End: 21-69-3629Wjfjdq OnlySean Greene MD Work Phone: [facility] External Department UnsolicitedStart: 06-27-2025 End: 99-71-5183Vnijxpm encounter Isa Ocampo RENAL TECHNICIAN-C-[facility] [place] Work Phone: Start: 06-27-2025 End: 69-62-4773cuzesmiuqfMqcxwmm M Hoy MD Work Phone: [facility] Work Phone: Start: 06-27-2025 End: 79-88-3683Jutamancs Mary Anne Mayberry DMD Work Phone: Dental ClinicStart: 06-27-2025 End: 71-76-1730gswiyvnz oral evaluation - established patientJesus Gonzalez MDSt. Vincent'S Hospital [facility] DistrictStart: 23-11-4855iguywawmrkTrbnbyx Hoy [facility] DEPARTMENTStart: 06-26-2025 End: 72-87-0071Iaguwsf encounter procedureJesus Langston MD-[facility] Work Phone: Start: 06-26-2025 End: 63-85-1063bbqvoqvrfnCyvdtsk M Hoy MD Work Phone: [facility] Work Phone: Start: 34-54-2376Sqrfqcaqo for general adult medical examination without abnormal findingsJesus Bui [facility] Start: 06-22-2025 End: 70-03-4809ybcqgbfeitVDIRN P MATHAIFacility:[facility] Campustart: 06-19-2025 End: 80-52-1902Fwkguve encounter procedureJesus Langston MD-CT Scan [place] Work Phone: Start: 06-19-2025 End: 89-56-0843tbsivnhxplLfnuzpr M Hoy MD Work Phone: [facility] Work Phone: Start: 06-13-2025 End: 44-03-6741Dhimpii encounter procedureJesus Langston MD-Ultrasound [place] Work Phone: Start: 06-13-2025 End: 98-29-0823wwbdkjznxuWgvujae M Hoy MD Work Phone: [facility] Work Phone: Start: 06-06-2025 End: 53-76-1962Itldmtlwm encounterLinmohamud Dorsey RENAL TECHNICIAN Work Phone: [facility] MedicineStart: 06-05-2025 End: 48-53-5407Bsabiaesb department patient visitJesus Gonzalez MD Work Phone: [phone]-Dykziulyv Room Work Phone: Start: 06-05-2025 End: 81-04-2430jxpfsvsxsjKRERCEF N AUSTINNot AvailableStart: 06-05-2025 End: 75-14-1504Ldguea outpatient visit 25 minutesLinmohamud Dorsey RENAL TECHNICIAN Work Phone: NO [facility] Urgent CareComment on above:Rib pain on right side (Primary Dx); Sprain of costal cartilage, initial encounterStart: 05-30-2025 End: 42-34-9499huuhrvfzeaTorceyf M Hoy MD Work Phone: [facility] Work Phone: Start: 05-30-2025 End: 34-95-5163Lbzzvkd encounter procedureKenalini Nuñez [facility] Work Phone: Start: 05-30-2025 End: 13-15-4734Yvanmaa encounter procedureKrishan Nuñez [facility] Start: 05-30-2025 End: 51-25-3694abzwqbthdtReicdqi M Hoy MD Work Phone: [facility] Work Phone: Start: 05-29-2025 End: 54-21-2173zkaxsooinnLfzsuoiJericho Hollingsworth MDFacility:[facility] [place] Start: 05-26-2025 End: 33-07-8467Cknmiiu encounter procedureJesus Langston MD-[facility] Centertart: 05-26-2025 End: 09-41-2916zaoueigmqbWclwsfv M Hoy MD Work Phone: [facility] Work Phone: Start: 05-24-2025 End: 62-52-4778Ppsrkk outpatient visit 5 minutesSunavin Mckinney [facility] Work Phone: Memorial Hospitaltart: 05-23-2025 End: 39-04-6343Rlntdr outpatient visit 25 minutesYola Wilburn NP Work Phone: [facility] Urgent CareComment on above:Fibromyalgia Start: 05-23-2025 End: 71-81-9900isdrculivvDWQLBUX R LACONISNot AvailableStart: 05-17-2025 End: 21-38-7086TjntuxDabbgqrk Hamdan APRN.SEAT INSTALLER Work Phone: Neurology Headache Stem FHCComment on above:Refill RequestStart: 04-25-2025 End: 91-88-9825BuqinmBrfhb P Mathai MD Work Phone: RheumatologyComment on above:Refill RequestStart: 04-24-2025 End: 16-27-2402xgqkejfyaaKsssjyoJericho Hollingsworth MDFacility:PM [place] Start: 04-12-2025 End: 51-84-9191Vcbclgcttbfy consultation with Balbina Fenton APRN.SEAT INSTALLER Work Phone: NeurologyStart: 04-12-2025 End: 04-52-5417agosapjnqrHongcmst Hamdan APRN.SEAT INSTALLER Work Phone: NeurologyComment on above:Meningioma (HCC) (Primary Dx); Chronic daily headacheStart: 03-29-2025 End: 30-70-5415Vzqxnjmynkzz consultation with Whitley Pineda MD Work Phone: [facility] CenterStart: 03-29-2025 End: 94-38-7678jbhtjszaydMofue F Recinos MD Work Phone: [facility] Brain Tumor CenterComment on above: Intracranial meningioma (HCC) (Primary Dx); Postprocedural state; Dizziness and giddinessStart: 03-26-2025 End: 64-11-9848icqmhkyjqpCoffrRegi Pineda MD Work Phone: [facility] Brain Tumor CenterComment on above:Incision Start: 03-22-2025 End: 02-48-5421vwhiabncdeYpbqipb M Hoy MD Work Phone: [facility] Work Phone: Start: 03-22-2025 End: 06-89-1729Suuxupt encounter procedureCojoe Gomes MD-[facility] Work Phone: Start: 03-20-2025 End: 00-78-1312EohendYqydc Chotai MD Work Phone: Endovascular CenterComment on above:Refill Request Start: 03-15-2025 End: 73-45-7980PpclsoFrgjj Chotai MD Work Phone: Endovascular CenterComment on above:Refill RequestS/P craniotomy (Primary Dx)Start: 03-13-2025 End: 56-65-8693Temngu-up encounterSusamarie Wood MD Work Phone: RheumatologyStart: 03-13-2025 End: 30-82-4095Pqvqzr outpatient visit 10 minutesSusamarie Mckinney [facility] HOSPITALPeggy Work Phone: [facility] Hospitaltart: 03-12-2025 End: 57-51-5969VfulwfTqdfddrd Hamdan APRN.CNP Work Phone: Neurology [facility] FHCComment on above:Refill RequestStart: 03-08-2025 End: 33-43-0066Wmpgldjxj encounterSmarilyn Phillips [facility] [place] Comment on above:Surgical FollowupStart: 03-06-2025 End: 35-05-1256FowgmdJzagj P Mathai MD Work Phone: RheumatologyComment on above:Refill RequestStart: 03-06-2025 End: 80-12-0459Kzmssxm evaluation of patient and reportSmarilyn BranhamSt. Anne Hospital [facility] Tumor [place]uckasegeeComment on above:S/P craniotomy (Primary Dx); Intracranial meningioma (HCC); Postop checkStart: 03-06-2025 End: 76-27-2161yzhqhyqzkwXBHLVYY Rae CARLOSFacility:[facility] HospitalStart: 03-02-2025 End: 03-52-2465Edevcuswu to same day surgery Massiel Moy APRN.CNP Work Phone: NeurosurgeryComment on above:Benign neoplasm of meninges (HCC) (Primary Dx)Start: 03-02-2025 End: 99-57-1169Oamoviktxkul consultation with Lamont Moy APRN.SEAT INSTALLER Work Phone: NeurosurgeryStart: 03-02-2025 End: 18-41-0655jltnmipjbiRIKBBFR Rae CARLOSFacility:[facility] Campustart: 02-24-2025 End: 36-80-7768TlnnyzBzqnx P Mathai MD Work Phone: RheumatologyComment on above:Refill RequestStart: 02-23-2025 End: 89-03-7199Tvrxlbglz encounterSmarilyn BranhamSt. Anne Hospital [facility] [place] Comment on above:Surgical FollowupStart: 94-98-8396Ibdrctcgi for other preprocedural examinationPABLO F RECINOSCleEast Ohio Regional HospitalStart: 02-20-2025 End: 46-59-7485Rttcgyifqk and management of inpatientJESUS GONZALEZ Facility:[facility] HospitalStart: 02-17-2025 End: 52-62-3251Wheaetawz encounterSgrant Phillips [facility] Comment on above:PreOp CallStart: 02-15-2025 End: 58-78-7408Ivpvhtdsysho consultation with Whitley Pineda MD Work Phone: [facility] CenterStart: 02-15-2025 End: 25-25-0578slcqjugwxfEctxd F Recinos MD Work Phone: [facility] Tumor CenterComment on above: Intracranial meningioma (HCC) (Primary Dx)ConsentStart: 02-15-2025 End: 45-18-1156Iruzoldrw encounterMehul Martin APRN.CNP Work Phone: pre AnesthesiaComment on above:Patient UpdateStart: 02-15-2025 End: 70-82-6954cmxvqmjnqySREFVAB DAVISFacility:[facility] Campustart: 02-14-2025 End: 71-59-3143Wwxbsby encounter statusMri (1.5t) Work Phone: [facility] Hospitaltart: 02-14-2025 End: 61-91-7958Ruwcdbrdxb hospital visit by physiciandamien [facility] Alyssa (1.5t) Work Phone: RadiologyComment on above:Intracranial meningioma (HCC) [D32.0]Start: 02-14-2025 End: 20-12-3985Ofwvbefoj to [facility] 2 Work Phone: pre AnesthesiaStart: 02-14-2025 End: 00-67-5405Rflfihmehi consultationHeritage Hospitalain 2 Work Phone: pre AnesthesiaComment on [...] 44.9 in adult; Inflammatory arthritisStart: 02-14-2025 End: 82-37-3344Tmsedwi encounter statusT[facility] 2 Work Phone: [facility] [address] Hospitaltart: 02-14-2025 End: 03-64-6928Nxgzefszkiofi examination done[place] [address] Work Phone: [facility] Work Phone: Start: 02-14-2025 End: 94-49-3769ybsriyzpmxHBWBMKS M HOYFacility:[facility] Campustart: 09-70-8774Lyvqtcaza for other preprocedural examinationPABLO RECINOSCleEast Ohio Regional HospitalStart: 02-10-2025 End: 07-44-9770Npeqnza encounter procedureJesus Gonzalez MD Work Phone: [facility]-Ultrasound [place] Work Phone: Start: 02-10-2025 End: 80-19-6477xulerfspvxImlszxe M Hoy MD Work Phone: [facility] Work Phone: Start: 02-01-2025 End: 77-01-2774Bpnqnvf encounter procedureJesus Gonzalez MD Work Phone: [facility] Work Phone: Start: 01-23-2025 End: 12-78-1315AmxwplKocmwfwz Hamdan REALTIME COURT REPORTEREstefanySEAT INSTALLER Work Phone: Neurology Headache [facility] HospitalCComment on above:Med Change RequestStart: 01-06-2025 End: 97-64-2114xrqhhubrruQWFNZOT M HOYFacility:[facility] Campustart: 12-29-2024 End: 56-45-1422RytgpnGibutqrl Hamdan REALTIME COURT REPORTEREstefanySEAT INSTALLER Work Phone: Neurology Headache Stem FHCComment on above:Refill RequestStart: 12-28-2024 End: 36-76-5756Uygkwn outpatient visit 25 minutesZulema Wood MD Work Phone: RheumatologyComment on above:Inflammatory arthritis (Primary Dx); Fibromyalgia; Encounter for medication monitoringStart: 12-28-2024 End: 49-90-3492emazuehpdoXQLOS P MATHAIFacility:[facility] Campustart: 12-27-2024 End: 82-20-9288jebioxmkezCbxcssc M Hoy MD Work Phone: [facility] Work Phone: Start: 12-27-2024 End: 02-78-6345Svvgxhl encounter Daniel Gonzalez MD Work Phone: [facility] Work Phone: Start: 12-13-2024 End: 60-96-8297Nddiadr encounter Daniel Gonzalez MD Work Phone: [facility]-Lab [facility] Centertart: 12-13-2024 End: 26-91-5195gxftcndtjjGvlkliu M Hoy MD Work Phone: [facility] Work Phone: Start: 12-05-2024 End: 74-65-1538Vxanydurs encounterSgrant Phillips [facility] Comment on above:Care Coordination (MyChart Follow up - Surgery Planning )Start: 11-03-2024 End: 19-63-0593Xypdcke encounter Daniel Gonzalez MD Work Phone: [facility] Work Phone: Start: 11-03-2024 End: 42-23-6840bkiqahzlebEcfryvs M Hoy MD Work Phone: [facility] Work Phone: Start: 10-10-2024 End: 79-55-8589Uphwnbijv encounterSandrew Wood MD Work Phone: rheumatologyComment on above:[place] - Other (Lab order problem/)Refill RequestStart: 09-27-2024 End: 37-31-2105xuioszcmrkNrlhhaa M Hoy MD Work Phone: [facility] Work Phone: Start: 09-27-2024 End: 50-58-6519Vergptf encounter Daniel Gonzalez MD Work Phone: [facility] Work Phone: Start: 09-20-2024 End: 93-72-4007Auicomnks encounterSandrew Wood MD Work Phone: rheumatologyComment on above:Results (Lab results from [facility])Start: 09-20-2024 End: 94-08-3438Iqmceje encounter Daniel Gonzalez MD Work Phone: [phone] [place] [address] Centertart: 09-20-2024 End: 64-99-7720sybrxysqtgOebxoez M Hoy MD Work Phone: [facility] Work Phone: Start: 09-16-2024 End: 75-28-1023Exddvuc encounter Daniel Gonzalez MD Work Phone: [phone] [place] [address] Ctr-[facility] Work Phone: Start: 09-16-2024 End: 06-94-8383mskxfhiugqCkspeil M Hoy MD Work Phone: [facility] Work Phone: Start: 09-09-2024 End: 22-63-1765zosjejluvrLfgshSharron Wood MD Work Phone: rheumatologyStart: 09-09-2024 End: 37-61-2488Gjddttg encounter Andres Wood MD Work Phone: RheumatologyComment on above:LabsStart: 08-28-2024 End: 91-69-9458NdohqlKhcmy P Mathai MD Work Phone: RheumatologyComment on above:Refill RequestStart: 08-01-2024 End: 81-69-4567hfqzulktarBmoptnt Vytautas Giedraitis MDFacility:PM Julio C Start: 07-18-2024 End: 07-77-6228wjiurueggxAvxwoui Vytautas Giedraitis MDFacility:PM [place] Start: 07-13-2024 End: 35-53-3947trovaelvkyBCP C MILLERNot AvailableStart: 07-13-2024 End: 77-51-5640Xiudfm outpatient visit 25 minutesKirae Polanco RENAL TECHNICIAN Work Phone: NOM[facility] SWS UCComment on above:Tooth infection (Primary Dx)Start: 07-04-2024 End: 71-12-8374loidnohuckKptxsvj Vytautas Giedraitis MDFacility:PM Julio C Start: 06-22-2024 End: 56-19-0370bwdwilnedcRZ Jesus M Hoy Work Phone: [facility] Work Phone: Start: 06-22-2024 End: 78-82-1979Gjtlzhf encounter procedureMD Jesus Hoy Work Phone: [facility] CenterStart: 06-21-2024 End: 36-74-8956bujafeldedDA Jesus M Hoy Work Phone: [facility] Work Phone: Start: 06-21-2024 End: 97-13-9405Ijgzeva encounter procedureMD Jesus Hoy Work Phone: [facility] Work Phone: Start: 06-20-2024 End: 96-04-6456wwcanyasolQnfxkoj Vytautas Giedraitis MDFacility:PM Julio C Start: 05-30-2024 End: 33-18-4664Lmrjtre encounter procedureSandrew Wood MD Work Phone: RheumatologyComment on above:Inflammatory arthritis (Primary Dx); Fibromyalgia; Medication monitoring encounterStart: 05-25-2024 End: 40-09-0114SrvgztTmzxhpcy Juan Luisdamarie REALTIME COURT REPORTER.SEAT INSTALLER Work Phone: [facility] [place] Head[facility] Stem FHCComment on above:Refill RequestStart: 05-12-2024 End: 28-68-1301bflqddqhfuMD Jesus Langston Luispiedad Work Phone: [facility] Work Phone: Start: 05-12-2024 End: 74-45-2050Mcepjkm encounter procedure Jesus Smithpiedad Work Phone: [facility] [facility] CenterStart: 59-00-1343LrpqwaNxyxq P Mathai MD Work Phone: RheumatologyComment on above:Refill RequestStart: 87-64-8600gjiqshazqgOgdonukw Juan Luisdamarie REALTIME COURT REPORTER.SEAT INSTALLER Work Phone: [facility] FHCComment on above:RobaxinStart: 73-34-3070xxgmdfisziBpdzaiew Juan Luisdamarie REALTIME COURT REPORTER.SEAT INSTALLER Work Phone: [facility] FHCComment on above:InsuranceStart: 96-38-5394Yvrcqbsbt encounterPajorge Pineda MD Work Phone: [facility] Tumor CenterComment on above:epidural steroid injectionStart: 03-04-2024 End: 54-86-5316gzeztzzrgmGU Jesus Langston Luispiedad Work Phone: [facility] Work Phone: Start: 03-04-2024 End: 91-15-9800Vmhvifr encounter procedure Jesus Hoy Work Phone: [facility] Work Phone: Start: 02-15-2024 End: 06-98-0397oujvttzdsuFZ Jesus Langston Hopiedad Work Phone: [facility] Work Phone: Start: 02-15-2024 End: 14-13-5717Udlkbss encounter procedureMD Jesus Gonzalez Work Phone: [facility]-Ultrasound [place] Work Phone: Start: 65-07-8901Ejndsybbg encounterMonilesh Fenton REALTIME COURT REPORTER.SEAT INSTALLER Work Phone: NeurologyComment on above:Insurance Authorization; Aurelio DOYLE - Medicare / [employer].Start: 02-09-2024 End: 58-83-0038cjqcjubojgEQ Douglas M Hopiedad Work Phone: [facility] Work Phone: Start: 02-09-2024 End: 85-04-3960Fzdmjvb encounter procedureMD Jesus Gonzalez Work Phone: [facility]-MRI [address] Work Phone: Start: 02-05-2024 End: 39-07-7472brkzhplqlbHpdupqej Hamdan REALTIME COURT REPORTER.SEAT INSTALLER Work Phone: Neurology Head[facility]em FHCComment on above:Meningioma (HCC) (Primary Dx); Chronic daily headacheStart: 02-05-2024 End: 57-78-0865Aqjyigelzfop consultation with Balbina Fenton APRN.SEAT INSTALLER Work Phone: Neurology Head[facility] FHCStart: 02-02-2024 End: 14-97-4513bwcuttykhkLdtxyk Appointments Work Phone: [facility] Tumor CenterComment on above: Intracranial meningioma (HCC) (Primary Dx)Start: 02-02-2024 End: 41-59-0723Xszjvtdpwwis consultation with patientFellow Appointments Work Phone: [facility] Tumor CenterStart: 50-64-6925Apymwyxtk encounterSgrant Phillips RNNovant Health/Nhrmc Brain Tumor CenterComment on above: AppointmentStart: 86-90-4020PddyuvDqrpbq Goforth MD Work Phone: Neurology Headache Stem FHCComment on above:Refill RequestStart: 32-06-3136klacyyvtapJUPKT F RECINOSFacility:[facility] HospitalStart: 01-29-2024 End: 79-52-8646Fkrhpqndlr hospital visit by physicianCt [facility] Work Phone: [facility] LODI HOSPComment on above: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]Benign neoplasm of meninges (HCC) [D32.9]Start: 44-77-3910PsjynyVjjmn P Mathai MD Work Phone: RheumatologyComment on above:Refill RequestStart: 01-26-2024 End: 24-55-5273Mhgtdci encounter procedureMD Jesus Gonzalez Work Phone: [facility] Work Phone: Start: 33-99-1992Tougevfnf Rachel Phillips RN [facility] Brain Tumor CenterComment on above:Schedule Surgery (Surgery Planning )Start: 69-96-1158Gpdbwbzel Dulce Wood MD Work Phone: RheumatologyComment on above:ResultsStart: 01-08-2024 End: 02-94-7304aowdbpqlogLA Jesus Gonzalez Work Phone: [facility] Work Phone: Start: 01-08-2024 End: 82-14-4691Tbyuwck encounter procedureMD Jesus Gonzalez Work Phone: [facility] Centertart: 74-44-7537Qoronnbya encounterSgrant Phillips RNBurkaet Brain Tumor CenterComment on above:Schedule SurgeryStart: 55-05-9076Bwnocwmtn encounterSandrew Wood MD Work Phone: RheumatologyComment on above:Lab Orders/FAXStart: 80-09-0816ElisddVsylpRebecca Wood MD Work Phone: RheumatologyComment on above:Refill RequestStart: 11-25-2023 End: 69-65-1527Kgbvywa encounter procedureMD eJsus Gonzalez Work Phone: [facility] Work Phone: Start: 72-19-0661KqihcvOwxyxRebecca Wood MD Work Phone: RheumatologyComment on above:Refill RequestStart: 30-61-0327Rrsbywuqx encounterSmarilyn Phillips RNPage Brain Tumor CenterComment on above:Care Coordination (follow up)Start: 11-11-2023 End: 95-34-0379Tryujyn encounter procedureMD Jesus Gonzalez Work Phone: [facility]-Lab [facility] CenterStart: 29-90-2800OgnkjuTmrjzRebecca Wood MD Work Phone: RheumatologyComment on above:Refill RequestStart: 40-77-2685AqezgjYwjgwRebecca Wood MD Work Phone: RheumatologyComment on above:Refill RequestStart: 87-56-5599Fxickintu to same day surgery Curly Pineda MD Work Phone: [facility] - [facility]eloy Brain Tumor CenterComment on above:Surgery Start: 39-33-1403rdjtouqhqrQsdll F Recinos MD Work Phone: cFAY[facility] MAINStart: 27-20-2917Ydnglbbtn encounterErik Pineda MD Work Phone: [facility] Brain Tumor CenterComment on above:Patient Update (Discuss Surgery March 2024)Start: 06-30-2023 End: 89-02-4008Vozicev encounter procedureErik Pineda MD Work Phone: [facility] Brain Tumor CenterComment on above: Intracranial meningioma (HCC) (Primary Dx)Start: 06-26-2023 End: 23-06-6128Eijwrp outpatient new 45 minutesFahad Corey MD Work Phone: Neurology Headache Stem FHCComment on above:Medication overuse headache (Primary Dx); Brain mass; Meningioma (HCC); Chronic daily headacheStart: 05-22-2023 End: 51-93-0407gkandliprkDD Jesus M Hoy Work Phone: [facility] Work Phone: Start: 05-22-2023 End: 93-70-4666Pzijyvu encounter procedureMD Jesus Hoy Work Phone: [facility]-Lab [facility] Centertart: 88-26-4430Vlmtfwqxl encounterMoira Goodrich APRN.CNP Work Phone: [facility] Tumor CenterComment on above:TRIAGE Start: 05-06-2023 End: 97-39-9999kwnhxfnyawQO Jesus M Hoy Work Phone: [facility] Work Phone: Start: 05-06-2023 End: 77-56-5209Vcsoxoi encounter procedureMD Jesus Hoy Work Phone: [facility]-MRI [place] Work Phone: Start: 04-29-2023 End: 00-94-6118gmefotrlnkOO Jesus M Hoy Work Phone: [facility] Work Phone: Start: 04-29-2023 End: 71-80-8340Ujiznxf encounter procedureMD Jesus Hoy Work Phone: [facility] Work Phone: Start: 04-15-2023 End: 80-00-9415jhgjssyibzVU Jesus Gonzalez Work Phone: [facility] Work Phone: Start: 04-15-2023 End: 05-47-8793Bwzxfak encounter procedureMD Jesus Gonzalez Work Phone: [facility]-Lab [facility] Centertart: 69-78-7394CvltekXaijl P Mathai MD Work Phone: RheumatologyComment on above:Refill RequestStart: 50-50-1511LciludNspik P Mathai MD Work Phone: RheumatologyComment on above:Refill RequestStart: 04-06-2023 End: 34-21-8354Yvxaurr encounter procedureMD Jesus Gonzalez Work Phone: [facility] Work Phone: Start: 03-31-2023 End: 96-54-4588ujhgixdwogNakwnys Disophiay Other [facility] embra[facility] Other Start: 39-61-7970Omvqtuv encounter procedureCameromarie PattenyFPG GastroenterologyStart: 53-57-6988NtcgdbQtwqi P Mathai MD Work Phone: RheumatologyComment on above:Refill RequestStart: 24-81-8777WynhpfWeurs P Mathai MD Work Phone: RheumatologyComment on above:Refill RequestStart: 12-17-2022 End: 17-89-8601tlbqtsieqqXghlywl Calvey Other [facility] Other Start: 49-87-4034Xzliko outpatient visit 15 minutes Elyssa CalveyFPG [facility] OrthopedicsStart: 29-60-0661pxbofjgqwqQqyap P Mathai MD Work Phone: RheumatologyComment on above:FibroStart: 10-10-2022 End: 33-41-2110isgmjmqztuZU JESUS HOYFacility:X4Siiqf: 09-29-2022 End: 01-30-6238Zjqucii encounter procedureSandrew Wood MD Work Phone: RheumatologyComment on above:Inflammatory arthritis (Primary Dx); Myalgia; FibromyalgiaStart: 18-96-8364Ksxutohef encounterSandrew Wood MD Work Phone: RheumatologyComment on above:Orders ([place])Start: 09-24-2022 End: 67-93-4113Wtgsbdr encounter procedureMD Jesus Hoy Work Phone: [facility] Start: 09-24-2022 End: 18-93-3199jkdswtnllrFN Jesus M Hoy Work Phone: [facility] Work Phone: Start: 08-59-3710Edwqxf outpatient visit 15 minutes Elyssa CalveyFPG [facility] OrthopedicsStart: 43-78-9277Jsslkg outpatient visit 15 minutesColleen CalveyFPG [facility] OrthopedicsStart: 08-05-2022 End: 66-08-2346zkxmrvigahMP Jesus M Hoy Work Phone: [facility] Work Phone: Start: 08-05-2022 End: 13-62-8909Iwbrpfx encounter procedureMD Jesus Hoy Work Phone: [facility] Start: 07-29-2022 End: 22-55-0013jnxmdhunyhVF Jesus M Hoy Work Phone: [facility] Work Phone: Start: 07-29-2022 End: 79-00-8712Iilqmmj encounter procedureMD Jesus Hoy Work Phone: [facility]-Lab Main CampusStart: 07-17-2022 End: 54-06-1479rtwrddglrnWrmgzquu [place] Other noZimplistic Other Start: 14-49-8118Pousmz outpatient visit 15 minutes Beti Reynoso [facility]icsStart: 06-25-2022 End: 16-93-3437pkbmvcxdjgRvyduler [place] Other [facility] emb[facility] Other Start: 89-41-6421Uxybuf outpatient visit 15 minutes Beti Reynoso [facility]icsStart: 86-69-9970ryujqhkyqpNA JESUS HOYFacility:E9Ndgky: 05-06-2022 End: 80-05-1476Zieiuhm encounter procedureMD Jesus Hoy Work Phone: [facility] Start: 05-01-2022 End: 32-53-6440Rzsobfk encounter procedureMD Jesus Hoy Work Phone: [facility]-Lab Main CampusStart: 03-31-2022 End: 06-38-8362pbaplztrvmFhhfzfvx [place] Other [employer] embraase Other Start: 45-93-3051Qenutz outpatient visit 15 minutes Beti Reynoso [facility]icsStart: 03-21-2022 End: 94-98-1971Zfrvkigems RecurringMD Jesus Hoy Work Phone: [facility]-Physical Therapy Bone CreekStart: 01-27-2022 End: 34-55-6665lmtruwxcciKtahoerp [place] Other [facility] emb[facility] Other Start: 68-44-6186Cnafxa outpatient visit 15 minutes Beti [facility]icsStart: 01-24-2022 End: 03-32-2662xotnabbzgpAklhxga [place] Other noZimplistic Other Start: 68-16-6708Lshads outpatient visit 15 minutes Elyssa MireyaFPG [facility] OrthopedicsStart: 01-20-2022 End: 61-63-6175tssonlszreAubwogkf [place] Other noZimplistic Other Start: 71-28-9618Pttgch outpatient visit 15 minutes Beti [facility] OrthopedicsStart: 01-20-2022 End: 69-96-1931Zbbqrfl encounter Andres Wood MD Work Phone: RheumatologyComment on above:Inflammatory arthritis (Primary Dx); MyalgiaStart: 12-24-2021 End: 12-70-1546yeuwlqlacaIyppcpo [place] Other [facility] Other Start: 00-47-9380Optkbh follow up visit related to original pxCollbryant JenkinsG [facility]icsStart: 12-19-2021 End: 47-28-8963xbhjrrkjbgKntdspkt [place] Other noGlassUp Other Start: 21-75-2529Qdswwqumj encounterBeti Bowles FPG [facility]icsStart: 12-02-2021 End: 88-06-1926agpfyksvlzDmyudapy [place] Other [employer]Zimplistic Other Start: 57-53-8966Remxlj outpatient visit 15 minutes Beti [facility] OrthopedicsStart: 11-20-2021 End: 80-06-0866dthxqkffqtTcqttry [place] Other [employer]Zimplistic Other Start: 61-98-4215Peiyqo follow up visit related to original pxCollbryant [facility] OrthopedicsStart: 10-08-2021 End: 12-94-5006gyxaeavfteVmeazed [place] Other [employer] Other Start: 85-33-6333Kkzvoa outpatient visit 25 minutes Elyssa Ferny [facility]icsStart: 08-28-2021 End: 45-93-1114gsemqyldcyUqkbwxy [place] Other [employer] Other Start: 22-58-9976Lvgnjf outpatient visit 25 minutes Elyssa Ferny [facility]icsStart: 08-12-2021 End: 52-51-5721lropillxrcNqtmtpp [place] Other [employer]Zimplistic Other Start: 41-57-6272Cbwevldml encounterColleen Ferny [facility]icsStart: 36-06-2856Zcybod outpatient visit 15 minutesColleen Ferny [facility]icsStart: 36-39-9714Sssuyz outpatient visit 15 minutesJennifer Edgardo [facility] OrthopedicsStart: 05-11-2017 End: 98-79-8178TzxydoetrsWRICZVV PHYSICIANFacility:[facility] Procedures DateProcedureProcedure DetailPerforming ClinicianStart: 07-93-0170Grmlx X-ray of right wristJesus Gonzalez MD Work Phone: Start: 12-51-8568Atcag of gammaglobulin iga igd igg igm eachSean Greene MD Work Phone: Start: 35-59-5683Oxghvwba blood count with white cell differential, automatedSean Greene MD Work Phone: Start: 33-07-7512Supg ia hiv-2Todd E Jc MCGHEE Work Phone: Start: 63-30-6283BU pre/post mri xrayJesus Gonzalez MD Work Phone: Start: 24-38-7935PV thoracic spine wo conDserjio Gonzalez MD Work Phone: Start: 06-27-2025 End: 07-69-9674gllyskrso - four radiographic imagesDoerik Gonzalez MDStart: 06-27-2025 End: 42-18-4946khyzow risk assessment and documentation, with a finding of moderate riskDoerik Gonzalez MDStart: 06-27-2025 End: 07-21-2733Qqnxuuofsleqn of current medicationsUnc Health Pardee Jefe DMD Work Phone: Start: 06-27-2025 End: 84-71-5863Wqkpnjz of Tobacco use NarrativeUnc Health Pardee [facility] DMD Work Phone: Start: 06-27-2025 End: 92-44-7479xpgmvzavqbq counseling for control of dental diseaseDouglas Carlos MDStart: 06-27-2025 End: 48-40-3932avak hygiene instructionsDoerik Gonzalez MDStart: 06-27-2025 End: 68-43-7508wyhkqpokqzd - adultDoerik Gonzalez MDStart: 57-48-5505Kzrs energy X- ray absorptiometryJesus Gonzalez MD Work Phone: Start: 27-05-8502BR of chest without contrastJesus Gonzalez MD Work Phone: Start: 87-85-7227AP scan of thyroidJesus Gonzalez MD Work Phone: [phone]-art: 51-95-3289Oapgq chest X-rayJesus Gonzalez MD Work Phone: Start: 52-52-7671Mwytz X-ray of right shoulderJesus Gonzalez MD Work Phone: [phone]-art: 05-24-2025 End: 27-86-3934Mqnbmfyhjzibefgtzkv acetateSusan Rice WHCNP Work Phone: Start: 03-13-2025 End: 30-39-8414Cdqopohleikrm of current medicationsSusan [facility] Work Phone: Start: 03-13-2025 End: 92-78-9768Ducvjxxzxlyvdhmpvfv acetateSusan [facility] Work Phone: Start: 97-97-7103Lyr brain brain stem w/o w/contrast materialErik Pineda MD Work Phone: start: 30-64-4109Mwzewbth screenPAJORGE PINEDAComment on above:Order Comment: Specimen Type: BLOOD SPECIMENOrdering Facility: [facility] Address:[address] [place] [address] Performed By: #### [id number] ####CC MAIN BLOOD BANKCLIA [id number] [place] [address] [place] AMERICAStart: 02-10-2025 Ultrasonography of bilateral kidneysJesus Gonzalez MD Work Phone: Start: 10-51-9530Blznnc-up visitFollow UpSANDREW MUELLERStart: 31-59-8883Vywlm X-ray of right wristJesus Gonzalez MD Work Phone: Start: 05-25-9544Ksdkw X-ray of left shoulderJesus Gonzalez MD Work Phone: Start: 56-98-4017Txvjjhhsm mammography of bilateral breastsDouglas Carlos MCGHEE Work Phone: Start: 35-01-2045OU scan of thyroidMD Jesus Gonzalez Work Phone: [phone]-art: 05-03-5997HN pre/post mri xrayMD Jesus Gonzalez Work Phone: Start: 50-46-1716BT lumbar spine wo conMD Jesus Gonzalez Work Phone: [phone]-art: 73-71-2093MFE of cervical spine without contrastMD Jesus Hoy Work Phone: Start: 51-65-9289PCY of headMD Jesus Hoy Work Phone: Start: 04-29-2023 End: 64-07-5288Foaiultdy mammography of bilateral breastsMD Jesus Hoy Work Phone: Start: 47-59-4549Azzclxvfmxzv gastric emptying studyMD Jesus Hoy Work Phone: Start: 49-43-5591Tunre X-ray of right wristMD Jesus Hoy Work Phone: Start: 30-03-5135Bffdn X-ray of right wristMD Jesus Hoy Work Phone: Start: 66-92-9542Brmvq cultureMD Jesus Hoy Work Phone: [phone]-art: 46-91-4492Kvtqb X-ray of right wristMD Jesus Hoy Work Phone: Start: 42-77-1885Lacxo depression screening assessment Zulema Wood MD Work Phone: Urine cultureMD Jesus Hoy Work Phone: Plan of Treatment DateCare ActivityDetailAuthorStart: 91-39-4050TzusgrucicAspen Valley Hospital Work Phone: Start: 22-36-7718Ucwulycubv A1c rpboadmsjraZdP0W [facility] [address] Hospitaltart: 08-07-2025 End: 98-37-0722Uapzpgp encounter fzerttohm88/24/2025 2:40 PM EST Office Visit [facility] [address] [place] [phone] Sean Greene MD [address] [place] [address] [facility] AllergyStart: 08-04-2025 [facility] Work Phone: Start: 10-06-4931Devrnrcaan, [facility] Work Phone: Start: 53-14-8197Bwlrw X-ray of right wristXR wrist RT min 3V*[facility] Centertart: 03-61-2531EL Wrist - right GE 3 ViewsUniversity Hospitals Ahuja Medical Centertart: 07-10-2025 End: 00-72-8103Hcyrawy encounter /27/2025 2:20 PM EDT Office Visit [facility] [address] [place] [phone] Sean Greene MD [address] [place] [address] ArrivedNOMS Giron AllergyComment on above:ArrivedStart: 07-10-2025 End: 14-51-1787KIG W Auto Differential panel - BloodCBC and differential Lab Routine Recurrent sinus infections Expected: 07/10/2025 (Approximate), Expires: 07/10/2026NOPR HealthcareComment on above:Expected: 07/10/2025 (Approximate), Expires: 07/10/2026Start: 07-10-2025 End: 56-27-3868Mldxpyjqci / Tetanus Antibody PanelDiphtheria / Tetanus Antibody Panel Lab Routine Recurrent sinus infections Expected: 07/10/2025 (Approximate), Expires: 07/10/2026NOPR HealthcareComment on above:Expected: 07/10/2025 (Approximate), Expires: 07/10/2026Start: 07-10-2025 End: 67-81-4819EVE-1/HIV-2 antigen/antibody combination immunoassayHIV-1 and HIV-2 antibodies Lab Routine Recurrent sinus infections Expected: 07/10/2025 (Approximate), Expires: 07/10/2026NOPR HealthcareComment on above:Expected: 07/10/2025 (Approximate), Expires: 07/10/2026Start: 07-10-2025 End: 56-11-6383PvZ [Mass/volume] in Serum or PlasmaIgA Lab Routine Recurrent sinus infections Expected: 07/10/2025 (Approximate), Expires: 07/10/2026NOPR HealthcareComment on above:Expected: 07/10/2025 (Approximate), Expires: 07/10/2026Start: 07-10-2025 End: 93-55-6585FpF [Units/volume] in Serum or PlasmaIgE Lab Routine Recurrent sinus infections Expected: 07/10/2025 (Approximate), Expires: 07/10/2026NOPR HealthcareComment on above:Expected: 07/10/2025 (Approximate), Expires: 07/10/2026Start: 07-10-2025 End: 14-74-4713QuE [Mass/volume] in Serum or PlasmaIgG Lab Routine Recurrent sinus infections Expected: 07/10/2025 (Approximate), Expires: 07/10/2026[facility] Work Phone: Comment on above:Expected: 07/10/2025 (Approximate), Expires: 07/10/2026Start: 07-10-2025 End: 59-06-9575ZqF [Mass/volume] in Serum or PlasmaIgM Lab Routine Recurrent sinus infections Expected: 07/10/2025 (Approximate), Expires: 07/10/2026NOPR HealthcareComment on above:Expected: 07/10/2025 (Approximate), Expires: 07/10/2026Start: 07-10-2025 End: 16-98-8230Lsxzmdw toxoid, IgGTetanus toxoid, IgG Lab Routine Recurrent sinus infections Expected: 07/10/2025 (Approximate), Expires: 07/10/2026NOPR HealthcareComment on above:Expected: 07/10/2025 (Approximate), Expires: 07/10/2026Start: 06-29-2025 End: 06-61-7129Dthjyez encounter jpkzrpqqi92/16/2025 1:40 PM EDT Office Visit Rheumatology [address] [place] [address] Zulema Wood MD [address] [place] [address] 6 month follow upRheumatologyComment on above:6 month follow upStart: 98-93-8831Fexalnpevh, [facility]ieHaxt[facility] Work Phone: Start: 19-26-9311Sfoiduo management education, guidance, and counselingDietary management education, guidance, and counseling [facility] Hospitaltart: 38-60-2348Gsssepf referralDoerik Gonzalez MD timeframe: 6 Months. (related to Body mass index [BMI] 40.0-44.9, adult)[facility] Hospitaltart: 96-58-6419SztyHaxtun Hospital District Work Phone: Start: 06-22-2025 End: 75-44-9383Zfsptpq encounter jdlgwvefy27/09/2025 2:20 PM EDT Office Visit Rheumatology [address] [place], [place] [phone] Zulema Wood MD [address] [facility] [place] [address] 6 month follow upRheumatologyComment on above:6 month follow upStart: 67-48-2268Rkqpd X-ray of right shoulderXR shoulder RT min 2V*[facility] Centertart: 65-84-4441HW Shoulder - right ViewsUniversity Hospitals Ahuja Medical Centertart: 05-24-2025 End: 94-61-2927WgohHaxtun Hospital District Work Phone: Start: 26-66-1602PSTOM-19 Vaccine ( season) COVID-19 Vaccine ( season)[facility] HealthcareStart: 79-86-6156Nkpzrnicj vaccinationWilson Street Hospitaltart: 04-12-2025 End: 05-29-2328ctajvjgzct02/30/2025 7:00 AM EDT [facility] Neurology [address] [facility] [place] [address] Rachele Fenton APRN.SEAT INSTALLER [address] [place], [place] [id number] Tension headachesNeurologyComment on above:Tension headachesStart: 03-29-2025 End: 37-65-1838giyguusggi25/16/2025 10:30 AM EDT [facility] Brain Tumor [place] [address] [place] [address] Erik Pineda MD [address] [place] [address] postopNovant Health/Nhrmc Brain Tumor TuckasegeeComment on above:postopStart: 03-13-2025 [facility] Work Phone: Start: 03-06-2025 End: 51-72-0372Dswgqhm evaluation of patient and mjylwo3103/06/2025 10:30 AM EDT Nurse Visit [facility] Tumor [place] [address] [place] [phone] Shakila Phillips RN [address] [place] [address] postop [facility] Tumor TuckasegeeComment on above:postopStart: 03-02-2025 End: 82-81-7375Gpmkjwyso to same day surgery ywsowu2503/02/2025 1:00 PM EDT [facility] Neurosurgery [facility] [address] [address] Stephanie Moy, REALTIME COURT REPORTER.SEAT INSTALLER [address] [place] [phone] Surgical Pathology discussionNeurosurgery Comment on above:Surgical Pathology discussionStart: 02-20-2025 End: 67-04-2623Hyulilyyo to same day surgery briaun9502/20/2025 12:45 PM EDT - 02/20/2025 6:45 PM EDT Surgery Admitting [address] [place] [address] Erik Pineda MD [address] [place] [address] ORBITOCRANIAL TO ANT CRAN FOSSA W/ SUPRAORB RIDGE OSTEOTOMY & ELEV FRONT&TEMP LOBEAdmittingComment on above:ORBITOCRANIAL TO ANT CRAN FOSSA W/ SUPRAORB RIDGE OSTEOTOMY & ELEV FRONT&TEMP LOBEStart: 02-20-2025 End: 47-24-7576Gyzbtnmtsfctv ant cranial fossa w/o orbit exntjORBITOCRANIAL TO ANT CRAN FOSSA W/ SUPRAORB RIDGE OSTEOTOMY & ELEV FRONT&TEMP LOBE Intracranial meningioma (HCC) Preop testing 02/20/2025 12:45 PM [facility]PAWH[facility]IN PAVILIONStart: 02-20-2025 End: 68-14-6552Tmxei/exc les base ant crnl fossa indrl w/wo grfRESECTION LESION BASE OF ANTERIOR CRANIAL FOSSA INTRADURAL W/ DURAL REPAIR Intracranial meningioma (HCC) Preop testing 02/20/2025 12:45 PM EDPAWHUSKA [facility] PA[facility]IN PAVILIONStart: 49-14-6415Yxflecgyfx hospital visit by vhcdfukas63/09/2025 12:45 PM EDT Hospital Encounter Admitting [address] [place] [id number] Erik Pineda MD [address] [place], [place] [phone] Intracranial meningioma (HCC) [D32.0], Preop testing [Z01.818]AdmittingComment on above:Intracranial meningioma (HCC) [D32.0], Preop testing [Z01.818]Start: 02-20-2025 End: 56-46-8397Aejeydrma to same day surgery zkpipk8002/20/2025 7:30 AM EDT - 02/20/2025 1:30 PM EDT Surgery Admitting [address] [place] [address] Erik Pineda MD [address] [place] [address] ORBITOCRANIAL TO ANT CRAN FOSSA W/ SUPRAORB RIDGE OSTEOTOMY & ELEV FRONT&TEMP LOBEAdmittingComment on above:ORBITOCRANIAL TO ANT CRAN FOSSA W/ SUPRAORB RIDGE OSTEOTOMY & ELEV FRONT&TEMP LOBEStart: 02-20-2025 End: 75-08-5742Ywuealxsuudtt ant cranial fossa w/o orbit exntjORBITOCRANIAL TO ANT CRAN FOSSA W/ SUPRAORB RIDGE OSTEOTOMY & ELEV FRONT&TEMP LOBE Intracranial meningioma (HCC) Preop testing 02/20/2025 7:30 AM [facility]IONStart: 02-20-2025 End: 34-43-0213Tgdox/exc les base ant crnl fossa indrl w/wo grfRESECTION LESION BASE OF ANTERIOR CRANIAL FOSSA INTRADURAL W/ DURAL REPAIR Intracranial meningioma (HCC) Preop testing 02/20/2025 7:30 AM [facility] P[facility]ILIONStart: 75-25-9331Eqvbmdiwwx hospital visit by jcseqymxx56/09/2025 7:30 AM EDT Hospital Encounter Admitting [address] [place] [address] Erik Pineda MD [address] [place] [address] Intracranial meningioma (HCC) [D32.0], Preop testing [Z01.818]AdmittingComment on above:Intracranial meningioma (HCC) [D32.0], Preop testing [Z01.818]Start: 02-15-2025 End: 23-89-9532Rzbuhvktp to same day surgery gsarux8702/15/2025 2:30 PM EDT [facility] [address] [place] [address] Erik Pineda MD [address] [place] [place] [address] surgery discussion/ consent / MRI review [facility] TuckasegeeComment on above:surgery discussion/ consent / MRI reviewStart: 02-14-2025 End: 97-33-1358HJCJZSD BLOOD TYPECONFIRM BLOOD TYPE Blood Bank Routine Pre-op evaluation Expected: 02/14/2025, Expires: 05/16/2025leveland ClinicComment on above:Expected: 02/14/2025, Expires: 05/16/2025Start: 02-14-2025 End: 10-56-6391Xjkcpyopmq A1c in BloodHEMOGLOBIN A1C Lab Routine Pre-op evaluation Type 2 diabetes mellitus without complication, withoutlong-term current use of insulin (HCC) Expected: 02/14/2025, Expires: 05/16/2025[facility] Work Phone: comment on above:Expected: 02/14/2025, Expires: 05/16/2025Start: 02-14-2025 End: 13-86-3444Byuhzgs encounter znqtnquih90/03/2025 9:20 AM EDT Appointment Radiology [address] [place] [address] MRI BRAIN WO/W IVCONRadiologyComment on above:MRI BRAIN WO/W IVCONStart: 02-14-2025 End: 29-39-8925ccfyhmozmx48/03/2025 8:30 AM EDT Results Only [facility] [address] [place] [address] [facility] LaboratoryComment on above:LabsStart: 02-14-2025 End: 00-46-2217Aufukuoosr rkcbditnduqn59/03/2025 7:40 AM EDT PAT Pre Anesthesia [address] [facility] [address] 2, Pacc [place] [address] [facility] [address] PRE OP CLEARANCEPre Anesthesia Comment on above:PRE OP CLEARANCEStart: 01-06-2025 End: 96-78-1694zvslsgfsfk66/25/2025 8:45 AM EDT [facility] Neurology Headache [facility] [address] [place] [address] Rachele Fenton, REALTIME COURT REPORTER.SEAT INSTALLER [address] [place] [address] I want to stop taking my medicine Neurology Headache [facility] Hospitalomment on above:I want to stop taking my medicineStart: 12-28-2024 End: 96-08-1658Glyhlaw encounter iruqfivlf43/16/2025 9:20 AM EDT Office Visit Rheumatology [address] [place] [address] Zulema Wood MD [address] [place] [address] 6 month follow upRheumatologyComment on above:6 month follow upStart: 39-95-2779Wazcx X-ray of right wristXR wrist RT min 3V*[facility]art: 32-89-7066IG Wrist - right GE 3 ViewsUniversity Hospitals Ahuja Medical Centertart: 57-05-2614Vcsgh X-ray of left shoulderXR shoulder LT min 2V*[facility] Cent[facility]art: 66-34-0723XX Shoulder - left ViewsUniversity Hospitals Ahuja Medical Centertart: 01-01-2025Medicare [facility] Annual Wellness VisitMedicare Advantage Annual Wellness VisitWilson Street Hospitaltart: 05-30-2024 End: 50-39-5127Lyouyjf encounter baouuelkb83/16/2024 9:40 AM EDT Office Visit Rheumatology [address] [place] [address] Zulema Wood MD [address] [facility] [place] [address] Return in about 8 months (around 05/29/2024) for arthralgias, FM .RheumatologyComment on above:Return in about 8 months (around 05/29/2024) for arthralgias, FM .Start: 17-76-7855Befoi-19 Vaccine ( season)Covid-19 Vaccine ( season)[facility]: 18-97-5984Dbcgk-19 Vaccine ( season)Covid-19 Vaccine ( season)[facility]: 69-56-7686Ourbfqkqo vaccinationWilson Street Hospitaltart: 04-04-2024 End: 41-67-9547Dvsglofhn to same day surgery mahotj4204/04/2024 7:30 AM EDT - 04/04/2024 2:30 PM EDT Surgery Admitting [address] [place] [address] Erik Pineda MD [address] [place] [address] ORBITOCRANIAL TO ANT CRAN FOSSA W/ SUPRAORB RIDGE OSTEOTOMY & ELEV FRONT&TEMP LOBEAdmittingComment on above:ORBITOCRANIAL TO ANT CRAN FOSSA W/ SUPRAORB RIDGE OSTEOTOMY & ELEV FRONT&TEMP LOBEStart: 04-04-2024 End: 73-10-6770Tixfeccoxfrpz ant cranial fossa w/o orbit exntjORBITOCRANIAL TO ANT CRAN FOSSA W/ SUPRAORB RIDGE OSTEOTOMY & ELEV FRONT&TEMP LOBE Intracranial meningioma (HCC) Preop testing 04/04/2024 7:30 AM EDTMC MAIN PAVILIONStart: 04-04-2024 End: 44-23-8966Pkwrb/exc les base ant crnl fossa indrl w/wo grfRESECTION LESION BASE OF ANTERIOR CRANIAL FOSSA INTRADURAL W/ DURAL REPAIR Intracranial meningioma (HCC) Preop testing 04/04/2024 7:30 AM EDTMC MAIN PAVILIONStart: 98-09-1724Qzznjwpruv hospital visit by hshjiijok04/22/2024 7:30 AM EDT Hospital Encounter Admitting [address] [place] [address] Erik Pineda MD [address] [place] [address] Intracranial meningioma (HCC) [D32.0]AdmittingComment on above:Intracranial meningioma (HCC) [D32.0]Start: 03-22-2024 End: 00-84-4662Aobfiuk encounter procedurePre AnesthesiaComment on above:Preop, ORBITOCRANIAL TO ANT CRAN FOSSA W/ SUPRAORB RIDGE OSTEOTOMY & ELEV FRONT&TEMP LOBEPreop lab and nasal swabStart: 14-88-9524PSMIVBFB SCREENDIABETES SCREEN [place] ClinicStart: 81-71-7600Pqledten ScreeningDiabetes ScreeningWilson Street Hospitaltart: 02-05-2024 End: 68-38-9552fzlrzmgjew49/24/2024 7:00 AM EDT [facility] Neurology Headache [facility] [address] [place] [address] Rachele Fenton, REALTIME COURT REPORTER.SEAT INSTALLER [address] [place] [address] f/uNeurology Headache Stem FHCComment on above:f/uStart: 01-29-2024 End: 35-74-6863Drrklzt encounter procedureRADIO MRI LODI HOSPComment on above:R Sphenoid Wing MeningiomaStart: 01-21-2024 End: 67-93-7921rlbmkjlajr40/09/2024 2:30 PM EDT [facility] [place] [address] [place] [address] Laron Lou DO, PhD [address] [facility]ITALM[facility]uel [facility] [address] [place] [address] Check up for headachesNovant Health/Nhrmc Brain Tumor TuckasegeeComment on above:Check up for headachesStart: 22-45-4529Zdjofxnswm Health ScreeningBehavioral Health ScreeningCleSt. Rita's Hospitaltart: 83-84-3357Nqzgekacbz AssessmentDepression AssessmentCleSt. Rita's Hospitaltart: 11-31-3366Zwfbr-19 Vaccine () Covid-[address] ()[address] [facility]: 77-69-4573Wrrgwhnfk vaccinationWilson Street Hospitaltart: 42-99-8077NMLZJMFYL (FIT-DNA)COLOGUARD (FIT-DNA)[facility]: 75-29-3202YjemjrwoikcUCITULIYPFLRbnkodutl Clinic Start: 69-72-6867RMYCDUWUGO CANCER SCREENINGCOLORECTAL CANCER SCREENINGCleSt. Rita's Hospitaltart: 83-47-7844NF COLONOGRAPHYCT COLONOGRAPHYCleSt. Rita's Hospitaltart: 44-04-4530RABQO OCCULT BLOODFECAL OCCULT BLOODWilson Street Hospitaltart: 2022 Lipid 1996 panel - Serum or PlasmaLipid ScreeningWilson Street Hospitaltart: 04-29-5976Btsze panelLipid ScreeningWilson Street Hospitaltart: 50-81-4283HAJGN SCREENLIPID SCREENCleSt. Rita's Hospitaltart: 95-95-4594Ibpmflkuz for malignant neoplasm of colonCleSt. Rita's Hospitaltart: 38-14-9527RTCCULOZYQBXQDHMIJFAXGPMFC [facility]: 46-88-2075NGEKALTJRC ASSESSMENTDEPRESSION ASSESSMENT [facility]: 08-98-6038Ynuea X-ray of right wristXR wrist RT min 3V* [facility]art: 05-06-2022 End: 42-89-2354Sgaxpjw encounter procedureDeparted [facility]-XRay Bree OrthoStart: 05-01-2022 End: 02-99-5495Bickuwy encounter procedureDeparted [facility]-Lab Main CampusStart: 40-45-1328Rfjqo depression screening assessmentDEPRESSION SCREENINGWilson Street Hospitaltart: 57-72-4568LFpF/Tdap/Td Vaccines (2 - Tdap)DTaP/Tdap/Td Vaccines (2 - Tdap)[facility] HealthcareStart: 27-34-2615Pjopv microalbumin profileDTaP,Tdap,Td Vaccine (1 - Tdap)[facility]: 28-01-7479HSKBU-19 VACCINE (3 - Booster for Pfizer series)COVID-19 VACCINE (3 - Booster for Pfizer series)[facility]: 67-51-1951SIEVB-19 VACCINE (3 - Pfizer series)COVID-19 VACCINE (3 - Pfizer series)[facility] Start: 30-43-2111NKHTL-19 VACCINE (3 - Pfizer risk 4-dose series)COVID-19 VACCINE (3 - Pfizer risk 4-dose series)[facility]: 82-87-7931QFRUC-19 VACCINE (3 - Pfizer risk series)COVID-19 VACCINE (3 - Pfizer risk series) [facility]: 45-71-7772JwyqipzipowVoppczxwg ClinicStart: 2017 Screening for malignant neoplasm of breastWilson Street Hospitaltart: 36-06-3356PNH TESTINGHPV TESTINGWilson Street Hospitaltart: 79-48-1259Sefjrvinz for malignant neoplasm of cervixWilson Street Hospitaltart: 15-48-0099VRH TESTINGPAP TESTING [facility]: 56-75-6732Qzvbasnde for malignant neoplasm of cervix [facility]: 14-43-8329Dzrpccoum B Vaccine (1 of 3 - 19+ 3-dose series)Hepatitis B Vaccine (1 of 3 - 19+ 3-dose series)[facility]: 66-73-1362Dkxsoxile B Vaccines (1 of 3 - 19+ 3-dose series)Hepatitis B Vaccines (1 of 3 - 19+ 3-dose series)[facility] HospitalStart: 35-84-9076Frtlswmxlffj vaccinationPneumococcal Vaccine (1 of 2 - PCV)[facility]: 1994 SHINGRIX VACCINE (1 of 2)SHINGRIX VACCINE (1 of 2)[facility] [address] [facility]: 46-64-3959Apmzm microalbumin profileWilson Street Hospitaltart: 80-25-4442Lhcljv PCP Team Chronic Disease VisitAnnual PCP Team Chronic Disease VisitAdena Health System Start: 26-07-7208Qacryef ScreeningAnxiety ScreeningWilson Street Hospitaltart: 13-85-9127Tsxfltgwnu ScreeningDepression ScreeningWilson Street Hospitaltart: 79-99-9233Buypelgct B surface antibody levelLDL CholesterolAdena Health System Start: 53-08-7868Stekktve foot examinationDiabetic Foot ExamAdena Health System Start: 78-69-7225Yguifyyg screeningDilated Retinal ExamWilson Street Hospitaltart: 93-11-4268Dwyyppuqr B screeningUrine Albumin:Creatinine RatioAdena Health System Start: 35-33-4879QMJWZQXXFOAS (1 - PCV)PNEUMOCOCCAL (1 - PCV)[facility] Start: 74-26-4167Rvudhclzph A1c foyczacdxejMnZ4HDmrgnyvki ClinicStart: 13-88-4006TCN Vaccines (1 of 1 - Standard series)MMR Vaccines (1 of 1 - Standard series)[facility] HospitalStart: 41-62-6679TDLTYIPQQ B (1 of 3 - 3-dose series) HEPATITIS B (1 of 3 - 3-dose series)[facility]: 07-94-3398Gqbekvgrk B Vaccine (1 of 3 - 3-dose series)Hepatitis B Vaccine (1 of 3 - 3-dose series) [facility]: 42-99-6179Noopudvet for malignant neoplasm of colonNOPR Healthcare End: 49-26-9410Ehhwfuk aminotransferase [Enzymatic activity/volume] in Serum or PlasmaALANINE AMINOTRANSFERASE / SGPT Lab Routine Inflammatory arthritis Every 3 months for 4 Occurrencesstarting 09/09/2024 until 09/06/2025[facility] on above:Every 3 months for 4 Occurrences starting 09/09/2024 until 09/06/2025 End: 98-11-4176Wmufull aminotransferase [Enzymatic activity/volume] in Serum or PlasmaALANINE AMINOTRANSFERASE / SGPT Lab Routine Encounter for medication monitoring Every 3 months for 4 Occurrences starting 10/10/2024 until 10/10/2025 [facility] SystemComment on above:Every 3 months for 4 Occurrences starting 10/10/2024 until 10/10/2025 End: 96-09-3191Faqqsmilc aminotransferase [Enzymatic activity/volume] in Serum or PlasmaASPARTATE AMINOTRANSFERASE/SGOT Lab Routine Inflammatory arthritis Every 3 months for 4 Occurrencesstarting 09/09/2024 until 09/06/2025[facility] Work Phone: Comment on above:Every 3 months for 4 Occurrences starting 09/09/2024 until 09/06/2025 End: 64-30-9801Slntvdkdu aminotransferase [Enzymatic activity/volume] in Serum or PlasmaASPARTATE AMINOTRANSFERASE/SGOT Lab Routine Encounter for medication monitoring Every 3 months for 4 Occurrences starting 10/10/2024 until 10/10/2025 [facility] Work Phone: Comment on above:Every 3 months for 4 Occurrences starting 10/10/2024 until 10/10/2025acteria identified in Urine by CultureUrine [facility] End: 09-06-2025 reactive protein [Mass/volume] in Serum or PlasmaC-REACTIVE PROTEIN Lab Routine Inflammatory arthritis Every 3 months for 4 Occurrences starting 09/09/2024 until 09/06/2025[facility] ClinicComment on above:Every 3 months for 4 Occurrences starting 09/09/2024 until 09/06/2025 End: 10-10-2025 reactive protein [Mass/volume] in Serum or PlasmaC-REACTIVE PROTEIN Lab Routine Encounter for medication monitoring Every 3 months for 4 Occurrencesstarting 10/10/2024 until 10/10/2025[facility] HospitalComment on above: Every 3 months for 4 Occurrences starting 10/10/2024 until 10/10/2025 End: 66-06-3479TKO panel - Blood by Automated countCOMPLETE BLOOD COUNT Lab Routine Inflammatory arthritis Every 3 months for 4 Occurrences starting until 09/06/2025leveland ClinicComment on above:Every 3 months for 4 Occurrences starting 09/09/2024 until 09/06/2025 End: 85-62-5432FFH panel - Blood by Automated countCOMPLETE BLOOD COUNT Lab Routine Encounter for medication monitoring Every 3 months for 4 Occurrences starting 10/10/2024 until 10/10/2025leveland ClinicComment on above:Every 3 months for 4 Occurrences starting 10/10/2024 until 10/10/2025 End: 55-69-9723Rrbqgamdarg sedimentation rateSEDIMENTATION RATE, WESTERGREN Lab Routine Inflammatory arthritis Every 3 months for 4 Occurrences starting 09/09/2024 until 09/06/2025leveland ClinicComment on above:Every 3 months for 4 Occurrences starting 09/09/2024 until 09/06/2025 End: 36-86-5655Lfeuecdvnlf sedimentation rateSEDIMENTATION RATE, WESTERGREN Lab Routine Encounter for medication monitoring Every 3 months for 4Occurrences starting 10/10/2024 until 10/10/2025leveland ClinicComment on above:Every 3 months for 4 Occurrences starting 10/10/2024 until 10/10/2025Insulin [Units/volume] in Serum or PlasmaKettering Health HamiltonInsulin [Units/volume] in Serum or PlasmaKettering Health Hamilton End: 96-88-0857TG Brain WO and W contrast IVMRI BRAIN WO/W IVCON Radiology Routine Benign neoplasm of meninges (HCC) 1 Occurrences starting 03/02/2025 until 04/01/2026[facility] Work Phone: Comment on above:1 Occurrences starting 03/02/2025 until 04/01/2026MR Skull base WO and W contrast IVMRI SKULL BASE WO/W IVCON Radiology Routine Benign neoplasm of meninges (HCC) 01/29/2024 1:56 PM EDT [facility] Work Phone: patient EducationRib fracture or bruised rib - ED discharge [facility] Work Phone: Patient referralWilson Health Ctr Work Phone: STREPTOCOCCUS PNEUMONIA AB (IGG) (23 SEROTYPES) STREPTOCOCCUS PNEUMONIA AB (IGG) (23 SEROTYPES) Lab Routine Recurrent sinus infections Ordered: 07/10/2025[facility] HealthcareComment on above:Ordered: [address] [place] [address] Immunizations Immunization DateImmunizationNotesCare EbaxinemHbbxpjzp03-55-6645abftdgieu virus vaccine, unspecified formulationPa 2 Work Phone: [facility] SystemOzmjgc34-94-9614Gqwbhqxao, injectable, Madin Fatimah Canine Kidney, preservative free, quadrivalentKirae Polanco RENAL TECHNICIAN Work Phone: [facility] HospitalAapgxaibai45-20-7807hazloypfp virus vaccine, unspecified formulationFahad Corey MD Work Phone: [facility] SystemPcoefr31-07-2033zollwfcpk, injectable, quadrivalent, preservative freeEstevan Polanco RENAL TECHNICIAN Work Phone: [facility] HospitalXjmyqswztp70-75-9449fnzlecs and diphtheria toxoids, adsorbed, preservative free, for adult use (5 Lf of tetanus toxoid and 2 Lf of diphtheria toxoid)Estevan Polanco RENAL TECHNICIAN Work Phone: [facility] HospitalVdsgeqrfrn91-67-9922Nxnigzx -40 Christiano Bowles Other [employer] Other [phone] -40 Christiano Bowles Other [employer] Other [id number]-06 mRNA Comrk (Pfizer)MD Jesus Gonzalez Work Phone: [facility]04-21-2021COVID-19 mRNA Comrk (Pfizer)MD Jesus Gonzalez Work Phone: [facility]03-04-2021Kenalog -40 Christiano Bowles Other [employer] Other 10793576-94-2631Xhstemtfh, injectable, Madin Fatimah Canine Kidney, preservative free, quadrivalentEstevan Polanco RENAL TECHNICIAN Work Phone: noCox SouthFzvurtlbmp47-95-1360Srf-KrcVdbqllsk [place] Other [employer] Other 06375430-87-3332Uvb-EskTdwwaiyc [place] Other [employer] Other 06-63948510-99-2472Iqp-GzjNpcgexpf [place] Other [employer] Other 05-952141-50-7800Fktbzjp -40 mgJennifer [place] Other noZimplistic Other 05927732-01-5716qpqurpiaq A vaccine, adult dosageEstevan Jairon RENAL TECHNICIAN Work Phone: EtreasureboxCox SouthOzlmjfugmz15-49-4234Bwvtfmmixj InjectionJennifer Jelena Other [employer] Other 11964299-65-9146Dbwizmllor InjectionJennifer Jelena Other [employer] Other 10-310167-31-2561Btdqzag -40 mgJennifer [place] Other [employer] Other 10880489-40-9941kuevfrctr virus vaccine, unspecified formulationEstevan Polanco RENAL TECHNICIAN Work Phone: noCox SouthPnikzzakbs28-99-9427Opjkhjo -40 mgJennifer [place] Other [employer] Other 03722853-27-4403Xahlfqz -40 mgJennifer Jelena Other [employer]istic Other 01825534-95-8664grdrifmnm, injectable, quadrivalent, contains preservativeBeti Bowles Other [facility]12-17-2014influenza, injectable, quadrivalent, preservative Frederick Jairon RENAL TECHNICIAN Work Phone: [facility]OC[facility] Payers DatePayer CategoryPayerPolicy [id number] (Managed Care) [id number] [id number] [id number] [id number] 2024Unknown2010Medicare MEDICARE MEDICARE A AND B [id number] 2009-[facility] [phone] [address] [address] [place] [address] [id number] 2010Medicare [id number] 2..0.1.598325.3.57[id number] 2.16.840.1.690243.3.57[id number] 2.160.1.667960.3.579.2.36[id number] 2.840.1.778572.3.579.2.[id number] 2.840.1.756475.3.579.2.[id number] 2.0.1.975394.3.579.2.13625-94-8433Lfozeyd246366519 2.0.1.093818.3.57[id number] 2.0.1.504525.3.579.2.01700-29-3742Leaxsuk22752278 2.840.1.011454.3.579.2.94956-72-1986Pjgpqsw73746857 2.0.1.402171.3.579.2.215211-18-0588Bsrlezb81126876 2.0.1.905391.3.579.2.185427-06-0085Yrewulk38020150 2..1.648421.3.579.2.996647-44-5260Xdbpuln62651142 2..1.819000.3.579.2.459100-49-0473Wgquega5502381 2..1.903466.3.579.2.1259 [id number] 2.840.1.769571.19 [id number] [id number]/HFA/FAP PyqevyQ620276 a3g7c213-79y9-9456-[id number] 2.840.1.608741.3.579.2.338Yksqnpo14675792 2.16.840.1.598822.3.579.2.531 Orjjoqo46508669 2.16.840.1.714745.3.579.2.122Lkdpusn73810239 2.16.840.1.651280.3.579.2.843Spqkpbw46282809 2.16.840.1.597148.3.579.2.531 Uhusnwu15491341 2.16.840.1.001953.3.579.2.420Sbpdrqa95868450 2.16.840.1.281574.3.579.2.782Qjublvj95975306 2.16.840.1.588912.3.579.2.531 Mtvybjj04893956 2.16840.1.542243.3.579.2.980Xblszpj77183225 2.16.840.1.963867.3.579.2.601Nfspeex82997797 2.16.840.1.212891.3.579.2.531 Nhhmhnu51480815 2.16.840.1.268976.3.579.2.823Qvpiexv76223668 2.16840.1.122116.3.579.2.936Hyzfoau07779209 2.840.1.962249.3.579.2.531 Flqgiup95961766 2.840.1.018871.3.579.2.531 Social History DateTypeDetailFacilityStart: 03-04-2021 End: 53-77-5064Babiafz smoking status NHISEx-smokerWilson Street Hospitaltart: 03-04-2021 End: 91-25-0257Flqudop use and exposureSmokeless tobacco non-userWilson Street Hospitaltart: 72-71-2471Rzi Assigned At BirthFemaleCLima Memorial Hospital: 01-10-2022 End: 11-23-1627Wnhzvjvm to SARS-CoV-2 (event)[address] Hospitaltart: 09-22-2022 End: 37-71-2907Bas Assigned At BirthAdena Health SystemHistory of tobacco use Current smokerWilson Street Hospitaltart: 09-22-2022 End: 86-24-2106[place] of Social functionWilson Street Hospitaltart: 08-15-2012 End: 42-35-7109Qjcnn Depression Screening Zupwqjkaps3Qztuovngj ClinicStart: 81-24-5667Oybhox identityIdentifies as female gender (finding)[facility] Start: 62-79-4246Qbjqvu orientationHeterosexual (finding)[facility]: 06-01-2023 End: 11-47-6263Jdfyxek intakeCurrent drinker of alcohol (finding)[facility] SystemHistory of tobacco useCigarette SmokerVA HOSPITAL HealthcareStart: 03-25-2023 Tobacco Comment>10 years since last smokedVA HOSPITAL HealthcareStart: 03-25-2023 Alcohol Commentcaffeine: stackersVA HOSPITAL HealthcareStart: 73-08-7144Qsp assigned at birthNot on fileVA HOSPITAL HealthcareStart: 09-17-2024 End: 61-03-2660ZymCjjvmq (finding)[facility] Centertart: 42-00-4730Zgjqeld CommentStarted 1994. Quit 2010. [address] Hospitaltart: 36-04-5234Dodjhiv Comment3-[address] Hospitaltart: 03-13-2025 End: 23-62-9308Pwwbtxr smoking status NHISUnknown if ever smokedSt. Vincent'S Hospital Westchester DistrictStart: 53-32-4780Zavljbf intakeAlcohol Use [facility]: 06-05-2025 End: 26-03-2228Swqzswy smoking status NHISNever smoked tobacco (finding) [facility]: 35-42-7763Nvlzwxt intake (observable entity)Alcohol Use [facility] DistrictStart: 06-27-2025 Tobacco use and exposureSmoking Tobacco Use [facility] CampusNEGATED: Highlighted [facility] HospitalNEGATED: Highlighted rowStart: 01-83-1337Uqapnox of tobacco useEx-cigarette smokerHaxtun Hospital DistrictNEGATED: Highlighted rowStart: 83-30-1546Icsamg-related BehaviorCaffeine Use DetailsHaxtun Hospital District Medical Equipment Procedure CodeEquipment CodeEquipment Original TextEquipment IdentifierDates Start: 53-54-9624Yvznd Duramatrix-Onlay Plus Collagen 2x2in Dural Regeneration Membrane - [id number]: 84-14-0442Sanqr Bone 8 Hole Profile - [id number]: 24-31-9891Jcjcq 3d Large Box Low Profile Titanium Bone 2x2 Hole 1.5mm Screw - [id number]: 65-95-1579Xgyvn Low Profile Titanium 12mm Bone 2 Hole Bar 1.5mm Screw Nonsterile - [id number]: 28-22-7725Oonwa 10mm Medium Titanium Conesus Hole Low Profile Tab 1.5mm Screws - [id number]: 31-49-9332Odzxt Bone [place] Neuro 3 4mm 1.5mm Self Drill Axial Stability Latex - [id number]: 10-25-2369Brbyimmng Neuro Axs Neuro Screw Disc Pre-Loaded 1.5mm X [id number] Start: 02-20-2025 Clinical Notes 03-04-2021 to 07-10-2025 Note Date & DlqrObomDsluoejk98-54-5278 History of Present illness Narrative* Sean Greene MD - 07/10/2025 2:20 PM EDT Kourtney Novak is a very pleasant 49 y.o. year old female who comes to the office today with the chief complaint of fatigue. She sees the coal tower operator because she was having tendinitis. 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 She was placed on plaquenil which was helpful for her lungs. She saw a lay out carpenter and was told she might have SLE. [...] accident and she understands. documented in this encounterCo[facility] [id number] Evaluation note* Type Assessment Date assessment Body mass index [BMI] 40.0-44.9, adult [facility] Work Phone: 1(119) 688-964210-14-2025 History of Present illness Narrative* Encounter Date Complaint History Of Prese nt Illness quinton doyle [facility] Work Phone: 1(223) 306-326810-14-2025 Instructions* Date Instruction Additional Infor mation Giving encouragement to exercise Related to Body mass index [BMI] 40.0-44.9, adult Dietary management e ducation, guidance, and counseling Related to Body mass index [BMI] 40.0-44.9, adult [facility] Work Phone: 1(734) 718-477910-09-2025 NoteHNO ID: [id number] Author: ZULEMA WOOD MD Service: ? Author [...] midline. There are no (more content not included)...[facility]10-06-2025 [facility] [place] [address] [place] [address] CT Scan Report Signed Patient: Kourtney Novak MR#: [id number] : 1975 Acct:[id number] Age/Sex: 49 / F ADM Date: 5 Loc: CT Room: Type: [facility] Attending Dr: Jesus Gonzalez MD Copies to: [...] Lincoln Hoffmann MD 06/19/252314 Signed By: 06/19/252318 [facility] Work Phone: [id number] Radiology Diagnostic [facility] [place] [address] [place] [address] Ultrasound Report Signed Patient: Kourtney Novak MR#: [id number] : 1975 Acct:[id number] Age/Sex: 49 / F ADM Date: 5 Loc: Room: Type: [facility] Attending Dr: Jesus Gonzalez MD Ordering Provider: [...] Gray M.D. 06/13/2025 10:29 PM Dictation Location: [place] [address] Tech: Tana Chahal Transcribed By: GRACIE 06/13/252228 Dictated By: George Gray DO 06/13/252225 Signed By: 06/13/252228 [facility]09-23-2025 Telephone encounter Note* Telephone Encounter - Lamar [...] deformities. No distinct acute displaced rib fracture. [facility] [id number] Miscellaneous Notes* Telephone Encounter - Lamar Dorsey [...] acute displaced rib fracture. documented in this encounterCooper County Memorial [id number] History of Present illness Narrative* Lamar Dorsey NP - 06/05/2025 5:40 PM EDT Images from the original note were not included. [address] , [address] [facility], [address] P: [phone] F: [phone] [facility] Historian of [facility]: patient Kourtney Novak is a 49 [...] fracture. See telephone encounter documented in this encounterCooper County Memorial [id number] Evaluation note* Diagnosis Onset Date Resolution Status Admit Date Tear of right supraspinatus tendon acuteSeptember 2024 1:21pm [facility] Work Phone: 1(683) 820-367409-16-2025 Evaluation note* Diagnosis Onset Date Resolution Status Admit Date Tear of right supraspinatus tendon acuteSeptember 2024 1:21pmOsteochondrosis of lunate of right wristacute July 12, 2025 3:22pmRight wrist painacuteOct2024 3:22pm [facility] Work Phone: 1(849) 124-758609-10-2025 Evaluation note* Type Assessment Date assessment Encounter for Depo-Provera contr aception [facility] Work Phone: [phone]) [phone] History of Present illness Narrative* Yola Wilburn NP - 05/23/2025 1:20 PM EDT Images from the original note were not included. [address] , [address] [facility], [address] P: [phone] F: [phone] HPI Historian of HPI: patient Kourtney Novak [...] (Toradol) injection 60 mg documented in this encounterCooper County Memorial [id number] Telephone encounter Note* Telephone Encounter - Gifty [...] A DAY NEEDED Pharmacy Name: RIP Martinez [facility]09-04-2025 Miscellaneous Notes* Telephone Encounter - Gifty Martinez [...] Pharmacy Name: [facility] Telephone encounter Note * Telephone Encounter - La Nena Waterman LPN - 04/26/2025 9:34 AM EDT Eye exam was completed and received 12/20/2024. [facility]08-13-2025 Miscellaneous Notes* Telephone Encounter - La Nena [...] Visit Type Date Time Department [facility] 06/22/2025 2:20 PM [facility] REJ Last Ophthalmology Check for Plaquenil [...] Last eye exam 12/20/24 documented in this encounterAdena Health System08-13-2025 Telephone encounter Note * Telephone Encounter - Zulema Wood MD - 04/26/2025 8:38 AM EDT She needs an eye exam if she wants future refills. The following approved medication requests have been transmitted electronically. Requested Prescriptions Signed Prescriptions Disp Refills hydrOXYchloroQUINE (PLAQUENIL) 200 mg tablet 60 tablet 2 Sig: TAKE 1 TABLET BY MOUTH TWICE A DAY Authorizing Provider: ZULEMA WOOD MD [facility]08-12-2025 Telephone encounter Note* Telephone Encounter - Alisha [...] Visit Type Date Time Department [facility] 06/22/2025 2:20 PM [facility] REJ Last Ophthalmology Check for Plaquenil [...] Lab Orders None Last eye exam 12/20/24 [facility]07-30-2025 History of Present illness Narrative* Rachele Fenton, MARILEE.SEAT INSTALLER - 04/12/2025 7:00 AM EDT Headache Center [...] visit. Either the patient or their legal professional healthcare representative has been informed of the risks [...] Prescription for 10 mg nortriptyline sent to [facility], 2-month supply provided to accommodatetapering [...] these with the patient: yes Rachele Fenton APRN.SEAT INSTALLER HEADACHE SCORES: 02/01/2024 12/30/2024 04/10/2025 Headache Questions [...] soft tissue component identified in the orbit. Solvent Process Extractor Operator: PSCB Transcribe Date/Time: Jan 31 2024 [...] articulation, and clear,coherent, and relevant. Short and buttermaker memory, cognition and general fund of knowledge [...] the visit was discussed with the patient/authorized professional healthcare representative; all questions welcomed and answered. Patient/authorized professional healthcare representative agreed to proceed Rachele Fenton APRN.CNP Headache Section [facility] April 12, 2025 documented in this encounterAdena Health System07-30-2025 NoteHNO ID: [id number] Author: RACHELE FENTON APRN.CNP Service: ? Author [...] visit. Either the patient or their legal professional healthcare representative has been informed of the risks [...] Prescription for 10 mg nortriptyline sent to [facility], 2-month supply provided to accommodate tapering schedule. [...] by mouth twice daily. (more content not included)...[facility]07-16-2025 History of Present illness Narrative* Erik Pineda MD - 03/29/2025 10:30 AM EDT Images from the original note were not included. SECTION OF SKULL BASE SURGERY MINIMALLY INVASIVE CRANIAL BASE & PITUITARY SURGERY PROGRAM [facility] [place] TELEMEDICINE FOLLOW-UP VISIT This is a virtual visit. It required patient-provider interaction for the medical decision making as documented below. Kourtney Novak has consented for this telemedicine encounter. I have communicated my name and active licensure. The patient's identity and physical location were verified at the time of this visit. Either the patient or their legal professional healthcare representative has been informed of the risks [...] meningioma, WHO grade 1 documented in this encounterAdena Health System07-16-2025 NoteHNO ID: [id number] Author: ERIK PINEDA MD Service: ? Author Type: Physician Type: Progress Notes Filed: 03/29/2025 10:48 Note Text: SECTION OF SKULL BASE SURGERY MINIMALLY INVASIVE CRANIAL BASE AND PITUITARY SURGERY PROGRAM [facility] [place] TELEMEDICINE FOLLOW-UP VISIT This is a virtual visit. It required patient-provider interaction for the medical decision making as documented below. Kourtney Novak has consented for this telemedicine encounter. I have communicated my name and active licensure. The patient's identity and physical location were verified at the time of this visit. Either the patient or their legal professional healthcare representative has been informed of the risks [...] (SYNTHROID) 50 mcg tablet (more content not included)...[facility]07-14-2025 Telephone encounter Note* Telephone Encounter - Chana Rose - 03/27/2025 9:35 AM EDT Hospital Discharge Summary faxed to Dr. Hoy. Saenz [facility]07-14-2025 Miscellaneous Notes* Telephone Encounter - Chana Rose - 03/27/2025 9:35 AM EDT Hospital Discharge Summary faxed to Dr. Hoy. Saenz documented in this encounterAdena Health System07-09-2025 Evaluation note* Diagnosis Onset Date Resolution Status Admit Date Osteochondrosis of lunate of right wrist acuteJuly 2024 3:55pmRight wrist painacuteJuly 2024 3:55pm [facility] Work Phone: 1(663) 506-670307-09-2025 Evaluation note* Diagnosis Onset Date Resolution Status Admit Date Osteochondrosis of lunate of right wrist acuteJuly 2024 3:55pmRight wrist painacuteJuly 2024 3:55pmTear of right supraspinatus tendonacuteSeptember 2024 1:21pm [facility] Work Phone: 1(613) 767-607107-07-2025 Telephone encounter Note* Telephone Encounter - Izabela Patton MD - 03/20/2025 10:26 AM EDT Picture uploaded in [employer] reviewed. Wound is healing appropriately. Will complete the 10 days dose of Bactrim. Prescribed accordingly. [facility]07-07-2025 Miscellaneous Notes* Telephone Encounter - Izabela Patton MD - 03/20/2025 10:26 AM EDT Picture uploaded in [employer] reviewed. Wound is healing appropriately. Will complete the 10 days dose of Bactrim. Prescribed accordingly. documented in this encounterAdena Health System07-02-2025 NoteHNO ID: [id number] Author: IZABELA PATTON MD Service: ? Author Type: Fellow Type: Progress Notes Filed: 03/15/2025 12:44 Note Text: SECTION OF SKULL BASE SURGERY MINIMALLY INVASIVE CRANIAL BASE AND PITUITARY SURGERY PROGRAM [facility] [place] CC: Patient Care Team: Jesus Gonzalez [...] changes. PLAN: - Send a picture in [facility] on Thursday. - Bactrim DS x [...] elevates symmetrically and uvul (more content not included)...[facility]07-02-2025 History of Present illness Narrative* Izabela Patton MD - 03/15/2025 12:31 PM EDT Images from the original note were not included. SECTION OF SKULL BASE SURGERY MINIMALLY INVASIVE CRANIAL BASE & PITUITARY SURGERY PROGRAM [facility] [place] CC: Patient Care Team: Jesus Gonzalez [...] changes. PLAN: - Send a picture in [employer] on Thursday. - Bactrim DS x 5 [...] No Does patient want to see a Cooling Pipe Inspector? No (yes to any of above refer patient to schedulers for dietitian appointment) ) Does patient have any new or increased numbness or tingling of extremities? No Is patient interested in fertility information? No Does patient need any prescription refills? No Does patient have an advanced directive in place? No, Patient referred to Resource Center documented in this encounterAdena Health System07-02-2025 Telephone encounter Note * Telephone Encounter - Izabela Patton MD - 03/15/2025 12:17 PM EDT Ordered Bactrim. [facility]07-02-2025 Miscellaneous Notes* Telephone Encounter - Izabela Patton MD - 03/15/2025 12:17 PM EDT Ordered Bactrim. documented in this encounterAdena Health System07-02-2025 NoteHNO ID: [id number] Author: BESS DO MA Service: ? Author Type: Lubricating Specialist Type: Progress Notes Filed: 03/15/2025 12:44 Note Text: Additional intake questions: Has the patient had fever, nausea, vomiting, diarrhea, constipation, fatigue for > 1 week? No Does the patient have a decreased appetite? No Does patient want to see a Cooling Pipe Inspector? No (yes to any of above refer patient to schedulers for dietitian appointment) ) Does patient have any new or increased numbness or tingling of extremities? No Is patient interested in fertility information? No Does patient need any prescription refills? No Does patient have an advanced directive in place? No, Patient referred to Resource Center Electronically Signed By: Bess Do [facility] 03-13-2025 Telephone encounter Note* Telephone [...] A DAY NEEDED Pharmacy Name: RIP Martinez [facility]06-30-2025 Miscellaneous Notes* Telephone Encounter - Gifty Martinez [...] Name: RIP Durbin Michelle documented in this encounterAdena Health System06-30-2025 Evaluation note* Type Assessment Date assessment Encounter for Depo-Provera contr aception [facility] Work Phone: [phone]) [phone] Telephone encounter Note* Telephone Encounter - Shakila Phillips RN - 03/08/2025 4:18 PM EDT Images from the original note were not included. [facility]06-25-2025 Miscellaneous Notes* Telephone Encounter - Shakila Phillips RN - 03/08/2025 4:18 PM EDT Images from the original note were not included. documented in this encounterAdena Health System06-23-2025 Telephone encounter Note * Telephone Encounter - Zulema Wood MD - 03/06/2025 12:40 PM EDT The following approved medication requests have been transmitted electronically. Requested Prescriptions Pending Prescriptions Disp Refills DULoxetine (CYMBALTA) 60 mg capsule [Pharmacy Med Name: DULOXETINE HCL DR 60 MG CAP] 90 capsule 2 Sig: TAKE 1 CAPSULE BY MOUTH EVERY DAY Zulema Wood MD [facility]06-23-2025 Miscellaneous Notes* Telephone Encounter - Zulmea Wood MD - 03/06/2025 12:40 PM EDT [...] Days Visit Type Date Time Department [facility] 06/22/2025 2:20 PM [facility] REJ Last Ophthalmology Check for Plaquenil [...] meningioma (HCC), Preop testing documented in this encounterAdena Health System06-23-2025 NoteHNO ID: [id number] Author: SHAKILA PHILLIPS RN Service: ? Author [...] request and reach out to her through [employer] with a reply. Shakila Phillips RN, Care CoordinatorMer[facility] Health [facility]06-23-2025 History of Present illness Narrative* Shakila [...] request and reach out to her through [employer] with a reply. Shakila Phillips RN, Brusher * Britton Tamez LPN - 03/06/2025 10:07 AM EDT Additional intake questions: Has the patient had fever, nausea, vomiting, diarrhea, constipation, fatigue for > 1 week? No Does the patient have a decreased appetite? No Does patient want to see a Cooling Pipe Inspector? No (yes to any of above refer patient to schedulers for dietitian appointment) ) Does patient have any new or increased numbness or tingling of extremities? No Is patient interested in fertility information? NA Does patient need any prescription refills? No Does patient have an advanced directive in place? Yes, copies are in [facility] documented in this encounterAdena Health System06-23-2025 Telephone encounter Note * Telephone Encounter - [...] Visit Type Date Time Department [facility] 06/22/2025 2:20 PM [facility] REJ Last Ophthalmology Check for Plaquenil [...] Assoc. diagnoses: Intracranial meningioma (HCC), Preop testing [facility]06-23-2025 NoteHNO ID: [id number] Author: BRITTON TAMEZ LPN Service: ? Author Type: LICENSED NURSE Type: Progress Notes Filed: 03/06/2025 14:25 Note Text: Additional intake questions: Has the patient had fever, nausea, vomiting, diarrhea, constipation, fatigue for > 1 week? No Does the patient have a decreased appetite? No Does patient want to see a Cooling Pipe Inspector? No (yes to any of above refer patient to schedulers for dietitian appointment) ) Does patient have any new or increased numbness or tingling of extremities? No Is patient interested in fertility information? NA Does patient need any prescription refills? No Does patient have an advanced directive in place? Yes, copies are in Epic Electronically Signed By: SEBASTIAN CamejoMercy Health [facility] Hospital 03-02-2025 History of Present illness Narrative* Stephanie Moy APRN.SEAT INSTALLER - 03/02/2025 1:00 PM EDT Images from the original note were not included. [facility] [place] [facility] TELE-HEALTH VISIT PROGRESS NOTE This is a virtual visit using [employer] video visit. It required patient-provider interaction for themedical decision making as documented below. I have communicated my name and active licensure. The patient's identity and physical location wereverified at the time of this visit. Either the patient or their legal professional healthcare representative has been informed of the risks [...] which included preparing to see the patient, wytc-oh-lymy patient care, completing clinical documentation, obtaining and/or reviewing separately obtained history, performing a medically appropriate examination, counseling and educating the pat ient/family/caregiver, ordering medications, tests, or procedures, communicating with other HCPs (not separately reported), independently interpreting results (not separately reported), communicatingresults to the patient/family/caregiver, and care coordination (not separately reported). Stephanie Moy APRN.SEAT INSTALLER Certified Nurse Practitioner cc: Erik Pineda MD - [facility] HPI: Kourtney Novak is a pleasant [...] resection. No residual mass or pathologic enhancement. Solvent Process Extractor Operator: PSCB Transcribe Date/Time: Feb 21 2025 11:17A [...] the tumor with antibodies to SSTR2a and MO was performed on block A1. The tumor [...] 2025 10:13 AM Gross examination performed at [facility], [address] [place] [address] Clinical History Pre-op diagnosis: Intracranial meningioma (HCC) [D32.0] Preop testing [Z01.818] Performing Lab Diagnostic interpretation performed at: [facility], [address] [place] [address], [facility] [place] [address] CLIA# [id number] Transmission Line Engineer: Charan Ryan MD Disclaimer Laboratory Developed Test (LDT) Disclaimer: Performance characteristics of immunohistochemical, immunofluorescent, and chromogenic in-situ hybridization tests have been determined by the performing laboratory within [facility]'s Andrzej Mckeon Pathology and Laboratory Medicine Department ([facility], [facility], [facility], [facility], [facility], [facility], [facility], or [facility][1]) in a manner consistent with CLIA requirements. One or more of these tests may not have been cleared or approved by the FDA. [facility] is regulated under CLIA as qualified to perform high- complexity testing. These tests are used for clinical purposes. These should not be regarded asinvestigational or for research. Positive and negative controls stain appropriately. KPS: 90 documented in this encounterAdena Health System06-19-2025 NoteHNO ID: [id number] Author: STEPHANIE MOY APRN.CNP Service: ? Author Type: Nurse Practitioner Type: Progress Notes Filed: 03/02/2025 13:22 Note Text: [facility] [place] [facility] TELE-HEALTH VISIT PROGRESS NOTE This is a virtual visit using [employer] video visit. It required patient-provider interaction for the medical decision making as documented below. I have communicated my name and active licensure. The patient's identity and physical location were verified at the time of this visit. Either the patient or their legal professional healthcare representative has been informed of the risks [...] which included preparing to see the patient, [id number]-[id number] patient care, completing clinical documentation, obtaining and/or reviewing separately obtained history, performing a medically appropriate examination, counseling and educating the patient/family/caregiver, ordering medications, tests, or procedures, communicating with other HCPs (not separately reported), independently interpreting results (not separately reported), communicating results to the patient/family/caregiver, and care coordination (not separately reported). Stephanie Moy APRN.SEAT INSTALLER Certified Nurse Practitioner cc: Erik Pineda MD - [facility] HPI: Kourtney Novak is a pleasant [...] Face symmetric with smile (more content not included)...[facility]06-16-2025 Telephone encounter Note* Telephone Encounter - [...] EVERY DAY Authorizing Provider: ZULEMA WOOD MD [facility]06-16-2025 Miscellaneous Notes* Telephone Encounter - Zulema Wood [...] Days Visit Type Date Time Department [facility] 06/22/2025 2:20 PM [facility] REJ Last Ophthalmology Check for Plaquenil [...] meningioma (HCC), Preop testing documented in this encounterAdena Health System06-13-2025 Telephone encounter Note * Telephone Encounter - [...] Visit Type Date Time Department [facility] 06/22/2025 2:20 PM [facility] REJ Last Ophthalmology Check for Plaquenil [...] Assoc. diagnoses: Intracranial meningioma (HCC), Preop testing [facility]06-12-2025 Telephone encounter Note* Telephone Encounter - Shakila [...] out for questions/ concerns/updates. Shakila Phillips RN, Brusher T [facility]06-12-2025 Telephone encounter Note* Telephone Encounter - Shakila Phillips RN - 02/23/2025 11:24 AM EDT General Call Caller : Pt Contact Reason for Call : Pt has question regards oxycodone meds. Patient requesting return call ? Yes [facility]06-12-2025 Miscellaneous Notes* Telephone Encounter - Shakila [...] out for questions/ concerns/updates. Shakila Shidiac RN, Brusher * Telephone Encounter - Shakila Phillips RN [...] return call ? Yes documented in this encounterAdena Health System06-12-2025 Telephone encounter Note * Telephone Encounter - Kaci Maya - 02/23/2025 9:46 AM EDT General Call Caller : Pt Contact Reason for Call : Pt has question regards oxycodone meds. Patient requesting return call ? Yes [facility]06-11-2025 NoteHNO ID: [id number] Author: DAYANNA CLEMENTE ? Service: Pharmacy Author Type: Steam Trap Worker Type: Plan of Care Filed: 02/22/2025 12:08 Note Text: PHARMACY BEDSIDE DELIVERY SERVICE Patient Name: Kourtney Novak The marked outpatient medications were Filled at: [facility] and delivered to the patient's [...] Dayanna Clemente PAGER: February 22, 2025 10:56 [facility]06-11-2025 NoteHNO ID: [id number] Author: DAYANNA CLEMENTE, Mookie Service: Pharmacy Author Type: Steam Trap Worker Type: Plan of Care Filed: 02/22/2025 10:56 Note Text: Insurance investigation completed Patient has active prescription insurance: Yes - Patient's insurance is in-network with [facility] Insurance loaded into [place]: Yes Test claim was completed to verify insurance is active: Successful Any questions, please reach out to your medication patient access.[facility]06-10-2025 NoteHNO ID: [id number] Author: HERSON OZUNA RN Service: Nursing Author Type: Registered Nurse Type: Progress Notes Filed: 02/21/2025 20:22 Note Text: At 16:15 PM, Received report from [facility] [place]. At 17:00 PM, Patient transferred to the nursing division.[facility]06-10-2025 NoteHNO ID: [id number] Author: JOVANNY CHRISTENSEN RN Service: Care Management Author Type: Registered Nurse Type: Care Mgt Initial Assessment Filed: 02/21/2025 15:16 Note Text: CARE MANAGEMENT: ASSESSMENT AND DISCHARGE PLAN SERVICE DATE: February 21, 2025 SERVICE TIME: 3:14 PM PCP: Jesus Gonzalez MD Primary Contact: Extended Emergency Contact Information Primary Emergency Contact: Christiano Saini Address: [address] [place] [address] [facility] Mobile Relation: Son Secondary Emergency Contact: Laith Saini Address: [address] [place] [address] [facility] Mobile Relation: Son Admission Status: Inpatient Insurance Provider: [employer] H[employer] Discharge Planning requested by: Per Department Practice Potential Transition Plans Home Advance Directives Current Advance Directive: None Independence of Choice Explained: Independence of Choice Given: No Reason Not Given: [...] TIME: 3:14 [facility]06-10-2025 NoteHNO ID: [id number] Author: GLORIA PEÑALOZA PA-C Service: Neurosurgery Author Type: Physician System Software Developer Type: Progress Notes Filed: 02/21/2025 12:40 Note Text: SERVICE DATE: 02/21/2025 SERVICE TIME: 8:19 AM NEUROSURGERY SKULL BASE INPATIENT PROGRESS NOTE Please contact NSGY window air conditioner installer [place] [phone] for questions/concerns about this patient from 3PM [...] Non-tender NEUROLOGY: Motor: UE BICEPS TRICEPS DELTS Reed Maker HI R 5/5 5/5 5/5 5/5 5/5 [...] 18 Gauge 1 day Peripheral 02/20/25 1245 [facility] Short Right Hand 18 Gauge <1 day Drain Duration Indwelling Urinary Catheter 02/20/25 1301 [facility] Nieves 16 Fr <1 day LABS: Na: Recent Labs 02/21/25 0437 02/20/25 1143 NA 138 137 1. Out of bed and ambulating: No Needs PT or OT Evaluation: No 2. Central line present? No 3. Continued need for urinary catheter? D/C Urinary Catheter 4. Nutrition: PO- Yes. 5. Restraints No. 6. Last BM CERTIFIED NURSE Assessment AND Plan Active Hospital Problems as [...] treating with decadron 8bid (SSI, PPI) with alf taper plan off over 1 week At risk for seizures 02/21/2025 - Pre (more content not included)...[facility]06-10-2025 NoteHNO ID: [id number] Author: ERIK PINEDA MD Service: Neurosurgery Author [...] Erik Pineda MD Date: 02/21/2025 Time: 9:02 [facility]06-09-2025 NoteHNO ID: [id number] Author: TWYLA COOLEY MD Service: Neurosurgery Author [...] Pineda Signature: Twyla Cooley MD PGY4, Neurosurgery [facility] On-call pager: [phone]2025 NoteHNO ID: [id number] Author: ZARA RAMACHANDRAN DO Service: ? Author [...] February 20, 2025 TIME: 2:16 PM CSN: [id number] Health [facility]06-09-2025 NoteHNO ID: [id number] Author: CLARISA GARZA MD Service: ? Author [...] Successful intubation technique: video laryngoscopy Devices used: BitLit Endotracheal tube insertion site: oral Blade: Cora [...] February 20, 2025 TIME: 2:00 PM CSN: [id number] Health [facility]06-06-[facility]25 Telephone encounter Note* Telephone Encounter - Shakila Phillips RN - 02/17/2025 3:53 PM EDT Spoke with the patient - we discusses signing the consent after she checks in for her surgery on Thursday02/20/25. [facility]06-06-2025 Miscellaneous Notes* Telephone Encounter - Shakila Phillips RN - 02/17/2025 3:53 PM EDT Spoke with the patient - we discusses signing the consent after she checks in for her surgery on Thursday02/20/25. documented in this encounterAdena Health System06-06-2025 Telephone encounter Note * Telephone Encounter - Shakila Phillips RN - 02/17/2025 3:49 PM EDT Called the patient for pre-op instructions. Questions pertaining to hospital stay and after hospital discharge instructions were addressed. Shewas made aware to touch base after she gets discharged home for review of hospital discharge instructions and confirming postop follow up appts. Shakila Phillips RN, [place]us[place] [facility]06-06-2025 Miscellaneous Notes* Telephone Encounter - Shakila Phillips RN - 02/17/2025 3:49 PM EDT Called the patient for pre-op instructions. Questions pertaining to hospital stay and after hospital discharge instructions were addressed. Shewas made aware to touch base after she gets discharged home for review of hospital discharge instructions and confirming postop follow up appts. Shakila Phillips RN, [place] documented in this encounterAdena Health System06-04-2025 History of Present illness Narrative* Erik Pineda MD - 02/15/2025 2:30 PM EDT SECTION OF SKULL BASE SURGERY MINIMALLY INVASIVE CRANIAL BASE & PITUITARY SURGERY PROGRAM [facility] [place], [facility] TELEMEDICINE FOLLOW-UP VISIT This is a virtual visit. It required patient-provider interaction for the medical decision making as documented below. Kourtney Novak has consented for this telemedicine encounter. I have communicated my name and active licensure. The patient's identity and physical location were verified at the time of this visit. Either the patient or their legal professional healthcare representative has been informed of the risks [...] week postoperatively. - Consent form sent via [employer], including consent for blood transfusion if necessary. - Patient understands and agrees with the treatment plan. I spent a total of 30 minutes on the date of the service which included preparing to see the patient, buxx-oh-zmor patient care, completing clinical documentation, performing a [...] tissue mass extending into the of the district medical examiner or parapharyngeal spaces. The soft tissue planes of the, retropharyngeal, and prevertebral spaces are maintained. The visualized parotid glands are normal in appearance. Nasopharynx/Oropharynx: The nasopharynx and oropharynx are normal in appearance. 12/28/24 OPTH Exam ( see scanned) documented in this encounterAdena Health System06-04-2025 NoteHNO ID: [id number] Author: ERIK PINEDA MD Service: ? Author Type: Physician Type: Progress Notes Filed: 02/15/2025 14:59 Note Text: SECTION OF SKULL BASE SURGERY MINIMALLY INVASIVE CRANIAL BASE AND PITUITARY SURGERY PROGRAM [facility] [place], [facility] TELEMEDICINE FOLLOW-UP VISIT This is a virtual visit. It required patient-provider interaction for the medical decision making as documented below. Kourtney Novak has consented for this telemedicine encounter. I have communicated my name and active licensure. The patient's identity and physical location were verified at the time of this visit. Either the patient or their legal professional healthcare representative has been informed of the risks [...] week postoperatively. - Consent form sent via [employer], including consent for blood transfusion if necessary. - Patient understands and agrees with the treatment plan. I spent a total of 30 minutes on the date of the service which included preparing to see the patient, ilxm-dx-trze patient care, completing clinical documentation, performing a [...] daily. No current facility-administered (more content not included)...[facility]06-04-2025 Telephone encounter Note* Telephone Encounter - Barbara Rosenthal LPN - 02/15/2025 8:21 AM EDT I called and spoke with patient. Relayed below message; denies questions at this time. Will go to [facility]. Barbara Rosenthal LPN February 15, 2025 8:22 AM [facility]06-04-2025 Miscellaneous Notes* Telephone Encounter - Barbara Rosenthal [...] BMP. Please have her go to closest [facility] lab tohave them drawn. She can go to [facility] in [place] if that is best for her thank you. Thank you, Mehul Martin APRN.JOSSIE documented in this encounterAdena Health System06-04-2025 Telephone encounter Note * Telephone Encounter - Mehul Martin APRN.CNP - 02/15/2025 8:09 AM EDT Please call patient. Lab did not draw [place], A1C, or BMP. Please have her go to closest [facility] lab tohave them drawn. She can go to [facility] in [place] if that is best for her thank you. Thank you, Mehul Martin APRN.JOSSIE [facility]06-03-2025 History of Present illness Narrative* Iwona Lainez [...] PATIENT PRESENTS WITH AN IMPLANTABLE OR ATTACHED TIN POURER: No RADIOLOGY DEPARTMENT: MR; Exam(s) Completed: Head: Routine Brain Localization PERIPHERAL IV DATA: Site assessment: Clean,Dry and Intact, Site disposition Discontinued SIGNED BY: TITO Marquez) February 14, 2025 9:16 AM documented in this encounterAdena Health System06-03-2025 NoteHNO ID: [id number] Author: IWONA LAINEZ RT(R) Service: ? Author [...] PATIENT PRESENTS WITH AN IMPLANTABLE OR ATTACHED TIN POURER: No RADIOLOGY DEPARTMENT: MR; Exam(s) Completed: Head: Routine Brain Localization PERIPHERAL IV DATA: Site assessment: Clean,Dry and Intact, Site disposition Discontinued SIGNED BY: TITO Marquez) February 14, 2025 9:16 [facility]06-03-2025 History and physical note* Mehul Martin, MARILEE.SEAT INSTALLER - 02/14/2025 7:40 AM EDT HISTORY AND [...] of breath with the above physical activity. [id number] Score: Age: <65 Sex: female CHF history: No Hypertension history: No Stroke/TIA/thromboembolism history: No Vascular disease history: No Diabetes history: Yes [id number] Score: 2 ARISCAT Score: Age: <=50 Preoperative [...] original vaccine, age 12+ yr, monovalent ([facility]- [facility] 01/02/2021 Imm Admin: COVID-19 original vaccine, age 12+ yr, monovalent (PFIZER- [facility] - [facility]) REVIEW OF SYSTEMS: PAIN ASSESSMENT: General: No weight loss, malaise or fevers. Neuro: See HPI +Fibromyalgia Respiratory: Negative for Asthma, Dyspnea, Home O2 +COPD +MAERK Cardiovascular: Negative for Recent NE, Angina, Chest Pain, PVD, DVT/PE +HLD GI: Negative for Nausea, Vomiting, Abdominal pain +GERD : Negative for dysuria, incontinence, hematuria, and hesitancy ORNAMENTAL BRICK INSTALLER: Negative for abnormal vaginal bleeding, abnormal vaginal [...] 386 QTC Calculation (Bazett) 436 Calculated P Linden 36 Calculated R Linden 47 Calculated T Linden 47 Impression NORMAL SINUS RHYTHM NORMAL ECG Instructions Given to Patient: Instructions located in the after visit summary. Patient given verbal and written preop instructions and voices comprehension and compliance. SIGNATURE: Mehul Martin APRN.CNP PATIENT NAME: Kourtney Novak DATE: 02/14/2025 TIME: 7:58 AM [facility]06-03-2025 History and physical note* Mehul Martin APRN.CNP [...] of breath with the above physical activity. [id number] Score: Age: <65 Sex: female CHF history: No Hypertension history: No Stroke/TIA/thromboembolism history: No Vascular disease history: No Diabetes history: Yes [id number] Score: 2 ARISCAT Score: Age: <=50 Preoperative [...] 12+ yr, monovalent (PFIZER- [facility] - [facility]) REVIEW OF SYSTEMS: PAIN ASSESSMENT: General: No weight loss, malaise or fevers. 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 Patient given verbal and written preop instructions and voices comprehension and compliance. SIGNATURE: Mehul Martin APRN.CNP PATIENT NAME: Kourtney Novak DATE: 02/14/2025 TIME: 7:58 AM documented in this encounterAdena Health System06-02-2025 Instructions* Patient Instructions* Mehul Martin APRN.CNP - 02/13/2025 11:26 AM EDT PATIENT PREOPERATIVE INSTRUCTIONS You Surgeon has scheduled you for your procedure at this surgery center: [facility] [place] Scheduling Office: [phone] --[address] [place] [address]. Please read below carefully for your personalized [...] SURGERY If you are currently using a qccy-ote-grja injectable or oral medication for diabetes or [...] Procedures: - YOU MUST HAVE A RESPONSIBLE LAY OUT HELPER TAKE YOU HOME. A SOLDERING MACHINE SETTER OR FLOWER CHENILLER CANNOT BE MADE A RESPONSIBLE LAY OUT HELPER. - We recommend that a responsible person [...] call the Thursday before. Your surgeon s surgery scheduler will tell you what time to call the office. - If you have not reached the departmental surgery scheduler by 5 P.M., call [phone] after 5 P.M. the day before your surgery. Please be aware that emergency situations arise, which may delay or change your surgical time. If this happens, we will notify you as soon as possible and regret any inconvenience. If you already have an Advance Directive, please fax a copy to [phone] or email to for it to be [...] day. Mehul Martin APRN.JOSSIE documented in this encounterAdena Health System05-30-2025 Radiology Diagnostic [facility] [place] [address] Ultrasound Report Signed Patient: Kourtney Novak MR#: [id number] : 1975 Acct:[id number] Age/Sex: 49 / F ADM Date: 5 Loc: Room: Type: [facility] Attending Dr: Jesus Gonzalez MD Ordering Provider: [...] Gray M.D. 02/10/2025 4:44 PM Dictation Location: [place] [address] Tech: Vani Baker Transcribed By: GRACIE 02/10/25 1644 Dictated By: George Gray DO 02/10/25 1643 Signed By: 02/10/25 1644 [facility]05-15-2025 Telephone encounter Note* Telephone Encounter - Gifty [...] WEEK THEN STOP Pharmacy Name: [facility]05-15-2025 Miscellaneous Notes* Telephone Encounter - Gifty Martinez [...] WEEK THEN STOP Pharmacy Name: [facility] documented in this encounterAdena Health System04-25-2025 NoteHNO ID: [id number] Author: RACHELE FENTON APRN.JOSSIE Service: ? Author [...] visit. Either the patient or their legal professional healthcare representative has been informed of the risks [...] 15 mg tablet simvastatin (more content not included)...[facility]04-24-2025 NoteHNO ID: [id number] Author: LA NENA WATERMAN LPN Service: ? Author Type: LICENSED NURSE Type: Progress Notes Filed: 01/05/2025 12:51 Note Text: Eye exam for Plaquenil toxicity received from [facility]. Exam date was 12/20/2024. Exam shows no signs of Plaquenil toxicity. Forms sent for scanning.[facility]04-17-2025 Telephone encounter Note* Telephone Encounter - [...] A DAY NEEDED Pharmacy Name: [facility]04-17-2025 Miscellaneous Notes* Telephone Encounter - Gifty Martinez [...] A DAY NEEDED Pharmacy Name: RIP Durbin Davilla documented in this encounterAdena Health System04-16-2025 NoteHNO ID: [id number] Author: ZULEMA WOOD MD Service: ? Author [...] extremities. GI: Bowel sound (more content not included)...[facility] 12-28-2024 History of Present illness Narrative* [...] No Swollen Glands: No documented in this encounterAdena Health System04-15-2025 Evaluation note* Diagnosis Onset Date Resolution Status Admit Date Osteochondrosis of lunate of right wrist acuteApril 2024 12:51pmRight wrist painacuteApril 2024 12:51pm Osteochondrosis of lunate of right wristacuteMay 2024 1:57pmRight wrist painacuteMay 2024 1:57pm [facility] Work Phone: [phone]) 858-421904-15-2025 Evaluation note* Diagnosis Onset Date Resolution Status Admit Date Osteochondrosis of lunate of right wrist acuteApril 2024 12:51pmRight wrist painacuteApril 2024 12:51pm Osteochondrosis of lunate of right wristacuteMay 2024 1:57pmRight wrist painacuteMay 2024 1:57pmOsteochondrosis of lunate of right wristacuteJuly 2024 3:55pmRight wrist painacuteJuly 2024 3:55pm [facility] Work Phone: 1(552) 953-206803-24-2025 Telephone encounter Note* Telephone Encounter - Shakila [...] reach out for questions/concerns/updates. Shakila Phillips RN, Brus[place] [facility]03-24-2025 Miscellaneous Notes* Telephone Encounter - Shakila Phillips [...] reach out for questions/concerns/updates. Shakila Phillips RN, [place] * Telephone Encounter - Shakila Phillips RN - 12/05/2024 10:04 AM EDT Left a detailed voice message for the patient requesting a call back to discuss her plan of care & scheduling surgery. Contact info provided. documented in this encounterAdena Health System03-24-2025 Telephone encounter Note * Telephone Encounter - Shakila Phillips RN - 12/05/2024 10:04 AM EDT Left a detailed voice message for the patient requesting a call back to discuss her plan of care & scheduling surgery. Contact info provided. [facility]02-20-2025 Evaluation note* Diagnosis Onset Date Resolution Status Admit Date Bursitis of left shoulder acuteFebruary 2024 9:12amOsteochondrosis of lunate of right wristacute December 27, 2024 12:51pmRight wrist painacuteApr2024 12:51pm [facility] Work Phone: 1(186) 395-437401-27-2025 Telephone encounter Note* Telephone Encounter - Tere Escamilla LPN - 10/10/2024 4:59 PM EST Faxed new order with updated diagnosis code . sent to [phone]. [facility]01-27-2025 Miscellaneous Notes* Telephone Encounter - Tere Escamilla LPN - 10/10/2024 4:59 PM EST Faxed new order with updated diagnosis code . sent to [phone]. * Telephone Encounter - Tere Escamilla LPN - 10/10/2024 3:27 PM EST Received fax from [facility]. States that diagnosis code M19.9 ( inflammatory arthritis ) does not pass medical necessity for the 25917 regarding CBC test. They needs a different order to be placed with another diagnosis code. Please fax to Jimbo Whitten at [phone]. Notice sent to scanning . Please route to [facility] nurse for follow up documented in this encounterAdena Health System01-27-2025 Telephone encounter Note * Telephone Encounter - [...] equal 90mg po qd Zulema Wood MD [facility]01-27-2025 Miscellaneous Notes* Telephone Encounter - Zulema Wood [...] Days Visit Type Date Time Department [facility] 12/28/2024 9:20 AM [facility] RE[facility] Last Ophthalmology Check for Plaquenil [...] Instance) Lab Orders None documented in this encounterAdena Health System01-27-2025 Telephone encounter Note * Telephone Encounter - Tere Escamilla LPN - 10/10/2024 3:27 PM EST Received fax from [facility]. States that diagnosis code M19.9 ( inflammatory arthritis ) does not pass medical necessity for the 14571 regarding CBC test. They needs a different order to be placed with another diagnosis code. Please fax to Jimbo Whitten at [phone]. Notice sent to scanning . Please route to [facility] nurse for follow up [facility]01-27-2025 Telephone encounter Note* Telephone Encounter - La [...] Days Visit Type Date Time Department [facility] 12/28/2024 9:20 AM [facility] REJ Last Ophthalmology Check for Plaquenil [...] Open Future (Single Instance) Lab Orders None [facility]01-14-2025 Evaluation note* Diagnosis Onset Date Resolution Status Admit Date Osteochondrosis of lunate of right wrist acuteJanuary 2024 2:48pmRight wrist painacuteJanuary 2024 2:48pm Bursitis of left shoulderacuteFebruary 2024 9:12am [facility] Work Phone: [phone]) 411-405201-07-2025 Telephone encounter Note* Telephone Encounter - Tere Escamilla LPN - 09/20/2024 5:15 PM EST Lab results received from [facility] . Copy sent to scan, copy sent to provider folder for review. . [facility]01-07-2025 Miscellaneous Notes* Telephone Encounter - Tere Escamilla LPN - 09/20/2024 5:15 PM EST Lab results received from [facility] . Copy sent to scan, copy sent to provider folder for review. . documented in this encounterAdena Health System01-02-2025 Telephone encounter Note * Telephone Encounter - Tere Escamilla LPN - 09/15/2024 3:42 PM EST Lab orders faxed to [phone]. Patient updated via iovox [facility]01-02-2025 Miscellaneous Notes* Telephone Encounter - Tere Escamilla LPN - 09/15/2024 3:42 PM EST Lab orders faxed to [phone]. Patient updated via iovox * Telephone Encounter - Zulema Wood MD - 09/15/2024 2:04 PM EST Please send lab orders to where patient would like. [facility] call patient to discuss. Zulema Wood MD documented in this encounterAdena Health System01-02-2025 Telephone encounter Note * Telephone Encounter - Zulema Wood MD - 09/15/2024 2:04 PM EST Please send lab orders to where patient would like. [facility] call patient to discuss. Zulema Wood MD [facility]12-27-2024 Telephone encounter Note* Telephone Encounter - Zulema [...] EVERY DAY Authorizing Provider: ZULEMA WOOD MD [facility]12-27-2024 Telephone encounter Note* Telephone Encounter - Zulema [...] EVERY DAY Authorizing Provider: ZULEMA WOOD MD [facility]12-27-2024 Miscellaneous Notes* Telephone Encounter - Zulema Wood [...] advise if labs are appropriate. Route to [facility] Nurse in order to follow up with faxing Lab orders to [facility] [phone] . * Telephone Encounter - Alisha Paniagua [...] Days Visit Type Date Time Department [facility] 12/28/2024 9:20 AM [facility] REJ Last Ophthalmology Check for Plaquenil [...] Instance) Lab Orders None documented in this encounterAdena Health System12-24-2024 Telephone encounter Note * Telephone Encounter - Tere Escamilla LPN - 09/06/2024 11:11 AM EST No current labs ordered . Please advise if labs are appropriate. Route to [facility] Nurse in order to follow up with faxing Lab orders to [facility] [phone] . [facility]12-19-2024 Telephone encounter Note* Telephone Encounter - Alisha Paniagua RN - 09/01/2024 5:10 PM EST Please monitor for receipt of labs. No labs completed presently. [facility]12-18-2024 Telephone encounter Note* Telephone Encounter - Zulema Wood MD - 08/31/2024 4:25 PM EST She needs labs before I can give her refill. Labs in epic. Zulema Wood MD [facility]12-16-2024 Telephone encounter Note* Telephone Encounter - Tory [...] Days Visit Type Date Time Department [facility] 12/28/2024 9:20 AM [facility] REJ Last Ophthalmology Check for Plaquenil [...] Open Future (Single Instance) Lab Orders None [facility]10-30-2024 History of Present illness Narrative* Estevan Polanco [...] 20 tablet; Refill: 0 documented in this encounterCooper County Memorial [id number] History of Present illness Narrative* Zulema Wood [...] No Swollen Glands: No documented in this encounterAdena Health System09-12-2024 Telephone encounter Note * Telephone Encounter - Eun Stanford APRN.CNP - 05/26/2024 10:59 AM EDT The following approved medication requests have been transmitted electronically. Requested Prescriptions Signed Prescriptions Disp Refills methocarbamol (ROBAXIN) 500 mg tablet 45 tablet 2 Sig: Take 1 tablet by mouth two times a day as needed. Authorizing Provider: EUN STANFORD APRN.CNP [facility]09-12-2024 Miscellaneous Notes* Telephone Encounter - Eun Stanford [...] Please E-Scribe Last office visit 02/05/24 with Marco Polo Projectdamarie virtual Next office visit N/A Patient Comment: [...] Pharmacy Name: [facility] documented in this encounterAdena Health System09-12-2024 Telephone encounter Note * Telephone Encounter - [...] day as needed. Pharmacy Name: [facility]07-12-2024 Telephone encounter Note* Telephone Encounter - Zulema Wood MD - 03/25/2024 12:32 PM EDT The following approved medication requests have been transmitted electronically. Requested Prescriptions Pending Prescriptions Disp Refills predniSONE (DELTASONE) 5 mg tablet [Pharmacy Med Name: prednisone 5 mg tablet] 60 tablet 3 Sig: TAKE 1 TO 2 TABLETS BY MOUTH EVERY DAY Zulema Wood MD [facility]07-12-2024 Miscellaneous Notes* Telephone Encounter - Zulema Wood [...] Visit Type Date Time Department [facility] 05/30/2024 9:40 AM [facility] REJ Last Ophthalmology Check for Plaquenil [...] (HCC), Preop testing TYPE AND SCREEN,30 DAY [[id number]] 02/03/24 05/04/24 02/03/24 Auth. provider: Erik Pineda MD Assoc. diagnoses: Intracranial meningioma (HCC), Preop testing documented in this encounterAdena Health System07-12-2024 Telephone encounter Note * Telephone Encounter - [...] Days Visit Type Date Time Department [facility] 05/30/2024 9:40 AM [facility] REJ Last Ophthalmology Check for Plaquenil [...] [SQSAPCR] 02/03/24 05/04/24 02/03/24 Auth. provider: Erik Pindea MD Assoc. diagnoses: Intracranial meningioma (HCC), Preop testing TYPE AND SCREEN,30 DAY [[id number]] 02/03/24 05/04/24 02/03/24 Auth. provider: Erik Pineda MD Assoc. diagnoses: Intracranial meningioma (HCC), Preop testing [facility]07-10-2024 Telephone encounter Note* Telephone Encounter - Emma Vargas - 03/23/2024 2:05 PM EDT Patient last seen 02/05/2024. [facility]07-10-2024 Miscellaneous Notes* Telephone Encounter - Emma Vargas - 03/23/2024 2:05 PM EDT Patient last seen 02/05/2024. documented in this encounterAdena Health System06-25-2024 Telephone encounter Note * Telephone Encounter - Shakila Phillips RN - 03/08/2024 2:39 PM EDT ADDENDUM: March 08, 2024 2:39 PM Distance Health Visit on 02/02/2024 including the details for the patient's surgery was faxed to Moira DONOVAN ( [facility]) . Shakila Phillips RN, Brusher [facility]06-25-2024 Miscellaneous Notes* Telephone Encounter - Shakila Phillips RN - 03/08/2024 2:39 PM EDT ADDENDUM: March 08, 2024 2:39 PM Distance Health Visit on 02/02/2024 including the details for the patient's surgery was faxed to Moira DONOVAN ( [facility]) . Shakila Phillips RN, Brusher * Telephone Encounter - Shakila Phillips RN - 03/08/2024 2:17 PM EDT Spoke with nurse Pizarro. We discussed that the patient's epidural steroid injection on 03/14/2024 for her neck pain (C7/T1) isfar out from her surgery for the craniotomy with Dr Erik Pineda (04/04/24). Shakila Phillips RN, Brusher * Telephone Encounter - Brain Ruth - 03/08/2024 1:46 PM EDT General Call Caller : Moira Ortiz nurse at [facility] Contact Reason for Call : Nurse would like to confirm that pt is allowed to receive steroid injection priorto surgery-80mg of kenalog Patient requesting return call ? Yes documented in this encounterAdena Health System06-25-2024 Telephone encounter Note * Telephone Encounter - Shakila Phillips RN - 03/08/2024 2:17 PM EDT Spoke with nurse Pizarro. We discussed that the patient's epidural steroid injection on 03/14/2024 for her neck pain (C7/T1) isfar out from her surgery for the craniotomy with Dr Erik Pineda (04/04/24). Shakila Phillips RN, Brusher [facility]06-25-2024 Telephone encounter Note* Telephone Encounter - Brain Ruth - 03/08/2024 1:46 PM EDT General Call Caller : Moira Ortiz nurse at [facility] Contact Reason for Call : Nurse would like to confirm that pt is allowed to receive steroid injection priorto surgery-80mg of kenalog Patient requesting return call ? Yes [facility]05-29-2024 Telephone encounter Note* Telephone Encounter - Gifty Dash - 02/10/2024 3:12 PM EDT Images from the original note were not included. Prior Authorization for Medications Requested by ([employer], Pharmacy, Patient Call, Fax) : [facility] Pharmacy Name: [facility] Phone # : [phone] Name of Medication : Robaxin Dose : 500 mg Tablet If renewal, auth date expiration: NA Prescribing Provider: Eliceo Last OV: 02/05/2024 with Eliceo Insurance Provider : Medicare / [employer]. Is insurance card scanned in, including Rx info? Medicare card scanned - no RX information Insurance Phone : CoverMyMeds [place]: NA E-PA? Yes [facility]05-29-2024 Miscellaneous Notes* Telephone Encounter - Davilla Gifty Rea - 02/10/2024 3:12 PM EDT Images from the original note were not included. Prior Authorization for Medications Requested by (Karthik, Pharmacy, Patient Call, Fax) : [employer] Pharmacy Name: [facility] Phone # : [phone] Name of Medication : Robaxin Dose : 500 mg Tablet If renewal, auth date expiration: NA Prescribing Provider: Eliceo Last OV: 02/05/2024 with Eliceo Insurance Provider : Medicare / [employer]. Is insurance card scanned in, including Rx info? Medicare card scanned - no RX information Insurance Phone : CoverMyMeds [place]: NA E-PA? Yes documented in this encounterAdena Health System05-24-2024 History of Present illness Narrative* Rachele Fenton [...] visit. Either the patient or their legal professional healthcare representative has been informed of the risks [...] these with the patient: yes Rachele Fenton APRN.SEAT INSTALLER HEADACHE SCORES: 06/19/2023 02/01/2024 Headache Questions ID [...] soft tissue component identified in the orbit. Solvent Process Extractor Operator: PSCIliana Transcribe Date/Time: Jan 31 2024 3:33P [...] articulation, and clear,coherent, and relevant. Short and alf memory, cognition [...] 30 minutes Rachele Fenton APRN.CNP Headache Section [facility] February 05, 2024 documented in this encounterAdena Health System05-21-2024 History of Present illness Narrative* Alexandria Bartholomew MD - 02/02/2024 7:36 PM EDT Images from the original note were not included. SECTION OF SKULL BASE SURGERY MINIMALLY INVASIVE CRANIAL BASE & PITUITARY SURGERY PROGRAM [facility] [place], [facility] CC: Patient Care Team: Jesus Gonzalez [...] which included preparing to see the patient, [id number] patient care, completing clinical documentation, performing a [...] sphenoid wing without significant change since 05/06/2023. Solvent Process Extractor Operator: PSCB Transcribe Date/Time: Jan 31 2024 5:10P Dictated by : WESTLEY IYER MD This examination was interpreted and the report reviewed and electronically signed by: WESTLEY IYER MD on Jan 31 2024 5:28PM EST Results-Findings * * *Final Report* * * DATE OF EXAM: Jan 29 2024 1:56PM [facility] 0319 - MRI SKULL BASE WO/W [...] tissue mass extending into the of the district medical examiner or parapharyngeal spaces. The soft tissue planes of the, retropharyngeal, and prevertebral spaces are maintained. The visualized parotid glands are normal in appearance. Nasopharynx/Oropharynx: The nasopharynx and oropharynx are normal in appearance. Result History documented in this encounterAdena Health System05-21-2024 Telephone encounter Note * Telephone Encounter - Shakila Phillips RN - 02/02/2024 10:23 AM EDT Called the patient confirming virtual appointment today at [address] Alexandria Bartholomew ( Skull base fellow from Dr Pineda team). [facility]05-21-2024 Miscellaneous Notes* Telephone Encounter - Shakila Phillips RN - 02/02/2024 10:23 AM EDT Called the patient confirming virtual appointment today at [address] Alexandria Bartholomew ( Skull base fellow from Dr Pineda team). documented in this encounterAdena Health System05-20-2024 Telephone encounter Note * Telephone Encounter - Jumana Zapien RN - 02/01/2024 10:39 AM EDT Pharmacy requesting refill via [employer]. Last OV: 06/26/2023 Future OV: 02/05/2024 with Rachele Fenton APRN.SEAT INSTALLER Last prescribed: 06/26/2023 Requested Prescriptions Pending Prescriptions Disp Refills tiZANidine (ZANAFLEX) 4 mg tablet [Pharmacy Med Name: tizanidine 4 mg tablet] 60 tablet 3 Sig: take 1 tablet by mouth every 8 hours as needed [facility]05-20-2024 Miscellaneous Notes* Telephone Encounter - Jumana Zapien RN - 02/01/2024 10:39 AM EDT Pharmacy requesting refill via [employer]. Last OV: 06/26/2023 Future OV: 02/05/2024 with Rachele Fenton APRN.SEAT INSTALLER Last prescribed: 06/26/2023 Requested Prescriptions Pending Prescriptions Disp Refills tiZANidine (ZANAFLEX) 4 mg tablet [Pharmacy Med Name: tizanidine 4 mg tablet] 60 tablet 3 Sig: take 1 tablet by mouth every 8 hours as needed documented in this encounterAdena Health System05-17-2024 NoteHNO ID: [id number] Author: KOFI [place] CT Service: Radiology Author [...] PATIENT PRESENTS WITH AN IMPLANTABLE OR ATTACHED TIN POURER: No RADIOLOGY DEPARTMENT: CT; Exam(s) Completed: Brain STERO PERIPHERAL IV DATA: Not applicable SIGNED BY: KAYLEEN Sharma January 29, 2024 12:53 [facility]05-17-2024 NoteHNO ID: [id number] Author: AILYN NEUMANN RT(R) Service: ? Author [...] PATIENT PRESENTS WITH AN IMPLANTABLE OR ATTACHED TIN POURER: No ALLERGIES: Reviewed and unchanged CONTRAST ALLERGY: NO. EXAM: MRI - CONTRAST TYPE: GROUP II PERIPHERAL IV DATA: Ambulatory: A peripheral IV was started in the Left antecubital site with a Angio cath: 22 gauge. RADIOLOGY DEPARTMENT: MR; Exam(s) Completed: Head: Routine Brain SIGNATURE: Ailyn Neumann RDMS, RVT- Sheila ([facility]) PATIENT NAME: Kourtney Novak DATE: January 29, 2024 TIME: 1:06 [facility]05-17-2024 History of Present illness Narrative* Kofi [...] PATIENT PRESENTS WITH AN IMPLANTABLE OR ATTACHED TIN POURER: No RADIOLOGY DEPARTMENT: CT; Exam(s) Completed: Brain STERO PERIPHERAL IV DATA: Not applicable SIGNED BY: KAYLEEN Sharma January 29, 2024 12:53 PM documented in this encounterAdena Health System05-17-2024 History of Present illness Narrative* Ailyn Neumann [...] PATIENT PRESENTS WITH AN IMPLANTABLE OR ATTACHED TIN POURER: No ALLERGIES: Reviewed and unchanged CONTRAST ALLERGY: NO. EXAM: MRI - CONTRAST TYPE: GROUP II PERIPHERAL IV DATA: Ambulatory: A peripheral IV was started in the Left antecubital site with a Angio cath: 22 gauge. RADIOLOGY DEPARTMENT: MR; Exam(s) Completed: Head: Routine Brain SIGNATURE: Ailyn Neumann RDMS, RVTMack Veras ([facility]) PATIENT NAME: Kourtney Novak DATE: January 29, 2024 TIME: 1:06 PM documented in this encounterAdena Health System05-15-2024 Telephone encounter Note * Telephone Encounter - Zulema Wood MD - 01/27/2024 3:29 PM EDT The following approved medication requests have been transmitted electronically. Requested Prescriptions Pending Prescriptions Disp Refills etodolac (LODINE) 400 mg tablet 60 tablet 3 Sig: One tab po bid prn Zulema Wood MD [facility]05-15-2024 Miscellaneous Notes* Telephone Encounter - Zulema Wood [...] Days Visit Type Date Time Department [facility] 05/30/2024 9:40 AM [facility] REJ Last Ophthalmology Check for Plaquenil [...] Instance) Lab Orders None documented in this encounterAdena Health System05-15-2024 Telephone encounter Note * Telephone Encounter - [...] Days Visit Type Date Time Department [facility] MED[facility] 05/30/2024 9:40 AM [facility] Last Ophthalmology Check for Plaquenil [...] Open Future (Single Instance) Lab Orders None [facility]05-07-2024 Telephone encounter Note* Telephone Encounter - Shakila [...] discussion and consent. Both appointments were confirmed. [facility]05-07-2024 Miscellaneous Notes* Telephone Encounter - Shakila Phillips [...] to the patient's home. Shakila Phillips RN, Brusher documented in this encounterAdena Health System05-07-2024 Telephone encounter Note * Telephone Encounter - Shakila Phillips RN - 01/19/2024 9:30 AM EDT Spoke with Ms Kourtney Novak today confirming surgery on 04/11/[address] Erik Pineda. Right middle sphenoid wing Preoperative appointments will be scheduled ~ 2 weeks prior to surgery date at a [facility] facility closer to the patient's home. Shakila Phillips RN, Brusher [facility]04-26-2024 Telephone encounter Note* Telephone Encounter - Rohit Khan MA - 01/08/2024 3:14 PM EDT Lab results received from [facility]. Placed in dr Vinay griggs for review,copy sent to scanning. [facility]04-26-2024 Miscellaneous Notes* Telephone Encounter - Rohit Khan MA - 01/08/2024 3:14 PM EDT Lab results received from [facility]. Placed in dr Vinay griggs for review,copy sent to scanning. documented in this encounterAdena Health System04-23-2024 Telephone encounter Note * Telephone Encounter - Shakila Phillips RN - 01/05/2024 1:04 PM EDT Spoke with Estefany Kourtney Johnson Marino today confirming surgery on Thu03/28/[address] Erik Pineda. Preoperative appointments to be scheduled at a [facility] facility near the patient's home. [facility]04-23-2024 Miscellaneous Notes* Telephone Encounter - Shakila Phillips RN - 01/05/2024 1:04 PM EDT Spoke with Estefany Kourtney Johnson Marino today confirming surgery on Thu03/28/[address] Erik Pineda. Preoperative appointments to be scheduled at a [facility] facility near the patient's home. documented in this encounterAdena Health System04-22-2024 Telephone encounter Note * Telephone Encounter - Michelle Thompson MA - 01/04/2024 4:17 PM EDT Orders faxed. Confirmation received. [facility]04-22-2024 Miscellaneous Notes* Telephone Encounter - Michelle Thompson MA - 01/04/2024 4:17 PM EDT Orders faxed. Confirmation received. * Telephone Encounter - Michelle Thompson MA - 01/04/2024 2:43 PM EDT Printed labs. Sent msg to pt to clarify which [facility] to fax to. Labs/Fax sheet in [...] requesting to [facility] She will send their FAX # in My Chart documented in this encounterAdena Health System04-22-2024 Telephone encounter Note * Telephone Encounter - Michelle Thompson MA - 01/04/2024 2:43 PM EDT Printed labs. Sent msg to pt to clarify which [facility] to fax to. Labs/Fax sheet in Michelle'slime green folder. Please fax once clarification is received. [facility]04-22-2024 Telephone encounter Note* Telephone Encounter - Zulema Wood MD - 01/04/2024 2:03 PM EDT Labs are ordered, please print and fax per patient request. Zulema Wood MD [facility]04-22-2024 Telephone encounter Note* Telephone Encounter - Verenice Ga RN - 01/04/2024 1:45 PM EDT Patient calling Needs 01/01/24 Lab Orders in Epic please (pended) Also requesting to FAX 01/01/24 Lab Orders to [facility] She will send their FAX # in My Chart [facility]03-20-2024 Miscellaneous Notes* Telephone Encounter - Tory Thomas [...] if patient had any question please call [phone]. My Chart Message also sent. * Telephone [...] Visit Type Date Time Department [facility] 05/30/2024 9:40 AM [facility] RE[facility] Last Ophthalmology Check for Plaquenil [...] Instance) Lab Orders None documented in this encounterAdena Health System02-29-2024 Miscellaneous Notes* Telephone Encounter - Zulema Wood [...] Days Visit Type Date Time Department [facility] MED[facility] 05/30/2024 9:40 AM [facility] RE[facility] Last Ophthalmology Check for Plaquenil [...] Instance) Lab Orders None documented in this encounterAdena Health System02-28-2024 Miscellaneous Notes* Telephone Encounter - Zulema Wood [...] Visit Type Date Time Department [facility] 05/30/2024 9:40 AM [facility] RE[facility] Last Ophthalmology Check for Plaquenil [...] Instance) Lab Orders None documented in this encounterAdena Health System02-28-2024 Miscellaneous Notes* Telephone Encounter - Shakila Phillips RN - 11/11/2023 11:37 AM EST Spoke with Ms.Mandie Alex Novak today following up on the [employer] message from 10/08/2023. She sent a message about having symptoms of blurry vision and was advised to schedule an appointment with ophthalmology. Today the patient stated that the blurry vision was 1 incident and that she did not have any visionchanges since. She was made aware to send an update or call for any questions or concerns. Shakila Phillips RN, Brusher documented in this encounterAdena Health System02-27-2024 Miscellaneous Notes* Telephone Encounter - Nathaly Kaplan [...] Visit Type Date Time Department [facility] 05/30/2024 9:40 AM [facility] RE[facility] Last Ophthalmology Check for Plaquenil [...] Lab Orders None documented in this encounterCleveland [id number] Miscellaneous Notes* Telephone Encounter - Shakila Phillips RN - 07/06/2023 3:23 PM EDT Spoke with Ms. Kourtney Novak. We discussed that it is so far out to schedule surgery in March 2024. We discussed option of possible surgery dates. She will be contacted during late December- January 2024 toconfirm the date of surgery and schedule the preoperative appointments. Shakila Phillips RN, Brusher * Telephone Encounter - Justine Pagan - 07/02/2023 3:04 PM EDT General Call Caller : Pt Contact Reason for Call : Pt would like to go forward w scheduling surgery. However, she would like surgeryto be scheduled in March 2024, pt would like to discuss further Patient requesting return call ? Yes documented in this encounterAdena Health System10-23-2023 Miscellaneous Notes* Telephone Encounter - Shakila Phillips RN - 07/06/2023 3:21 PM EDT Spoke with Estefany Kourtney Johnson Edwardreic. We discussed that it is so far out to schedule surgery in March 2024. We discussed option of possible surgery dates. She will be contacted during late December- January 2024 toconfirm the date of surgery and schedule the preoperative appointments. Shakila Phillips RN, Brusher documented in this [facility]10-17-2023 Instructions* Patient Instructions* Stephanie Moy APRN.SEAT INSTALLER - 06/30/2023 11:30 AM EDT I believe [...] (due back Apr 2024). documented in this encounterAdena Health System10-17-2023 Nurse Note* Bess Do Ma - 06/30/2023 10:52 AM EDT Additional intake questions: Has the patient had fever, nausea, vomiting, diarrhea, constipation, fatigue for > 1 week? No Does the patient have a decreased appetite? No Does patient want to see a Cooling Pipe Inspector? No (yes to any of above refer patient to schedulers for dietitian appointment) ) Does patient have any new or increased numbness or tingling of extremities? No Is patient interested in fertility information? No Does patient need any prescription refills? No Does patient have an advanced directive in place? No, Patient referred to Resource Center documented in this encounterAdena Health System10-17-2023 History of Present illness Narrative* Erik Pineda MD - 06/30/2023 10:49 AM EDT Images from the original note were not included. SECTION OF SKULL BASE SURGERY MINIMALLY INVASIVE CRANIAL BASE & PITUITARY SURGERY PROGRAM [facility] [place], [facility] CC: Patient Care Team: Jesus Gonzalez MD as PCP - General (Family Medicine) Laron Lou DO - [facility] ASSESSMENT: In summary, Kourtney Novak is [...] and follow-up via virtual visit. Stephanie Moy APRN.SEAT INSTALLER I have reviewed the progess note obtained [...] which included preparing to see the patient, [id number] patient care, completing clinical documentation, performing a [...] the prior exam. documented in this encounterCleveland [id number] Instructions* Patient Instructions* Fahad Corey MD - [...] 26, 2023 5:39 PM documented in this encounterAdena Health System10-13-2023 History of Present illness Narrative* Fahad Corey MD - 06/26/2023 5:06 PM EDT HEADACHE MEDICINE NEW EVALUATION June 26, 2023 5:00 PM I have communicated my name and active licensure. The patient's identity and physical location wereverified at the time of this visit. Either the patient or their legal professional healthcare representative has been informed of the risks [...] 26, 2023 5:36 PM documented in this encounterAdena Health System08-30-2023 Miscellaneous Notes* Telephone Encounter - Moira Goodrich APRN.SEAT INSTALLER - 05/13/2023 1:13 PM EDT Time Frame: Next available Provider: Carmine (possible [facility]) Referring: self Please instruct patient to hand carry/ upload images prior to appt Images also requested via Electronically Dx: Multiple meningiomas with interval growth Multiple meningiomas with interval growth since 2015. MRI done for dizziness. [facility] [place] [address] [place] [address] MRI Report Signed Patient: Kourtney Novak MR#: [id number] : 1975 Acct:[id number] Age/Sex: 47 / F ADM Date: 05/06/23 Loc: Room: Type: [facility] Attending Dr: Jesus Gonzalez MD Copies to: [...] frontal subcortical white matter. documented in this encounterAdena Health System07-31-2023 Miscellaneous Notes* Telephone Encounter - Zulema Wood [...] Visit Type Date Time Department [facility] 09/28/2023 3:00 PM [facility] REJ Last Ophthalmology Check for Plaquenil [...] Instance) Lab Orders None documented in this encounterAdena Health System07-31-2023 Miscellaneous Notes* Telephone Encounter - Zulema Wood [...] Visit Type Date Time Department [facility] 09/28/2023 3:00 PM [facility] RE[facility] Last Ophthalmology Check for Plaquenil [...] Instance) Lab Orders None documented in this encounterAdena Health System07-18-2023 Evaluation note* Encounter Date Diagnosis Assessment Notes [...] Mar,OtherObtain labs from Dr. Gonzalez regarding diabetes [facility] Other 06-26-2023 Miscellaneous Notes* Telephone Encounter - Tory Thomas LPN - 03/09/2023 11:55 AM EDT Refill to soon refilled 01/19/2023 30 capsules with 3 refilles documented in this encounterAdena Health System05-08-2023 Miscellaneous Notes* Telephone Encounter - Zulema Wood [...] Visit Type Date Time Department [facility] 06/26/2023 10:40 AM [facility] RE[facility] Last Ophthalmology Check for Plaquenil [...] Instance) Lab Orders None documented in this encounterAdena Health System04-05-2023 Evaluation note* Encounter Date Diagnosis Assessment Notes Treatment Notes Treatment Clinical Notes Dec, 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 May repeat ulnar wrist cortisone injection when needed. Patient instructed on the use of Voltaren Gel in the meantime Dec,Right wrist pain (ICD-10 - M25.531) Dec,Other specified postprocedural states (ICD-10 - Z98.890) [facility] Other 03-30-2023 Miscellaneous Notes* Addendum Note - [...] qd Zulema Wood MD documented in this encounterAdena Health System01-16-2023 Miscellaneous Notes* Telephone Encounter - Zulema Wood [...] check out. Thank you. 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 Decrease to 81 mg Aspirin once per day x 3 months then begin to wean off. Jul,ther specified postprocedural states (ICD-10 - Z98.890) [facility] Other 11-03-2022 Evaluation note* Encounter Date Diagnosis [...] pain of right shoulder (ICD-10 - M25.511) [facility] Other 10-12-2022 Evaluation note* Encounter Date Diagnosis [...] pain of left shoulder (ICD-10 - M25.512) [facility] Other 07-18-2022 Evaluation note* Encounter Date Diagnosis [...] pain of right shoulder (ICD-10 - M25.511) [facility] Other 05-16-2022 Evaluation note* Encounter Date Diagnosis [...] will order an MRI for futher review. 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 Continue Aspirin. 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 Risks and benefits of procedure explained to patient; patient verbalizes understanding. 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 Patient would like to proceed with surgical treatment in October [employer] Other 11-29-2021 Evaluation note* Encounter Date Diagnosis Assessment Notes Treatment Notes Treatment Clinical Notes Jul, Carpal tunnel syndrome of right wrist (ICD-10 - G56.01) [employer] [facility] [employer] Other 10-05-2021 Evaluation note* Encounter Date Diagnosis [...] brace as needed for pain and support [employer] Other 09-22-2021 Evaluation note* Encounter Date Diagnosis [...] of right supraspinatus tendon (ICD-10 - M75.101) [employer] [facility] [employer] Other 06-21-2021 NoteHNO ID: [id number] Author: Hu Blankenship Service: Radiology Author Type: Channel Account Manager Type: Progress Notes Filed: 03/04/2021 [...] HospitalConsult note* Clinical Note Date No Information [facility] Work Phone: Discharge summary* Clinical Note Date No Information [facility] Work Phone: Evaluwlumn note* Diagnosis Inflammatory arthritis- Primary Unspecified inflammatory polyarthropathy Myalgia Mylagia and myositis, unspecified [facility] note[facility] InformationNort embraase Other evaluafekl noteNo assessment information available [facility] Work Phone: evaluihsqe note* Diagnosis Inflammatory arthritis- Primary Unspecified inflammatory polyarthropathy Myalgia Mylagia and myositis, unspecified Fibromyalgia Mylagia and myositis, unspecified [facility]* Diagnosis Medication overuse headache- Primary Drug induced headache, not elsewhere classified Brain mass Unspecified condition of brain Meningioma (HCC) Benign neoplasm of cerebral meninges Chronic daily headache Headache [facility]* Diagnosis Intracranial meningioma (HCC)- Primary Benign neoplasm of cerebral meninges [facility] Diagnosis Onset Date Resolution Status Osteochondrosis of lunate of right wrist acuteRight wrist painacute [facility] Work Phone: evaluation note* Diagnosis 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) Benign neoplasm of cerebral meninges [facility] Benign neoplasm of meninges (HCC) Benign neoplasm of cerebral meninges [facility] Diagnosis Chronic daily headache Headache [facility] Diagnosis Intracranial meningioma (HCC)- Primary Benign neoplasm of cerebral meninges [facility] Diagnosis Meningioma (HCC)- Primary Benign neoplasm of cerebral meninges Chronic daily headache Headache Intracranial meningioma (HCC) Benign neoplasm of cerebral meninges Preop testing Preoperative examination, unspecified [facility]* Diagnosis Onset Date Resolution Status Osteochondrosis of lunate of right wrist acuteRight wrist painacuteAcute pain of right shoulderacuteBiceps tendonitis acute [facility] Work Phone: Evaluation note* Diagnosis Onset Date Resolution Status Acute pain of right shoulder acuteBiceps tendonitisacuteOsteochondrosis of lunate of right wristacuteRight wrist painacute [facility] Work Phone: Evaluation note* Diagnosis Inflammatory arthritis- Primary Unspecified inflammatory polyarthropathy Fibromyalgia Mylagia and myositis, unspecified Medication monitoring encounter Encounter for therapeutic drug monitoring documented in this encounter [facility] note* Diagnosis Tooth infection- Primary Acute apical periodontitis of pulpal origin documented in this encounter [facility] note* Diagnosis Inflammatory arthritis- Primary Unspecified inflammatory polyarthropathy documented in this encounter [facility] note* Diagnosis Onset Date Resolution Status Admit Date Osteochondrosis of lunate of right wrist acuteJanuary 2024 2:48pmRight wrist painacuteJanuary 2024 2:48pm [facility] Work Phone: Evaluation note* Diagnosis Encounter for medication monitoring- Primary Encounter for therapeutic drug monitoring documented in this encounter [facility] note* Diagnosis Fibromyalgia Mylagia and myositis, unspecified documented in this encounter [facility] note* Diagnosis Inflammatory arthritis- Primary Unspecified inflammatory polyarthropathy Fibromyalgia Mylagia and myositis, unspecified Encounter for medication monitoring Encounter for therapeutic drug monitoring documented in this encounter [facility] note* Diagnosis Chronic daily headache Headache documented in this encounter [facility] note* Diagnosis Chronic daily headache Headache Intracranial meningioma (HCC) Benign neoplasm of cerebral meninges Preop testing Preoperative examination, unspecified documented in this encounter [facility] note* Diagnosis Pre-op evaluation- Primary Preoperative [...] examination, unspecified documented in this encounter [facility] note* Diagnosis Pre-op evaluation- Primary Preoperative [...] examination, unspecified documented in this encounter [facility] note* Diagnosis Pre-op evaluation- Primary Preoperative [...] by [facility]ology [facility] Diagnosis Meningioma (HCC)- Primary Benign neoplasm [...] Unspecified inflammatory polyarthropathy [facility] Diagnosis Meningioma (HCC)- Primary Benign neoplasm [...] of cerebral meninges [facility]* Diagnosis Meningioma (HCC)- Primary Benign neoplasm [...] and myositis, unspecified [facility] Diagnosis Meningioma (HCC)- Primary Benign neoplasm [...] following unspecified surgery [facility] Diagnosis Meningioma (HCC)- Primary Benign neoplasm [...] daily headache Headache [facility] Diagnosis Meningioma (HCC)- Primary Benign neoplasm [...] Other postprocedural status [facility] Diagnosis Meningioma (HCC)- Primary Benign neoplasm [...] Dizziness and giddiness documented in this [facility]* Diagnosis Meningioma (HCC)- Primary Benign neoplasm [...] daily headache Headache [facility]* Diagnosis Meningioma (HCC)- Primary Benign neoplasm [...] daily headache Headache [facility]* Diagnosis Fibromyalgia Unspecified myalgia and myositis [facility] Diagnosis Rib pain on right side- Primary Sprain of costal cartilage, initial encounter Rib pain on right side [facility]* Diagnosis Recurrent sinus infections- Primary Unspecified sinusitis (chronic) Obstructive sleep apnea Obstructive sleep apnea (adult) (pediatric) [facility]* Clinical Note Date No Information [facility] Work Phone: Hisnirl general Narrative - Reported* Type Description Date Medical History GERD Medical HistorygastroparesisMedical HistorybipolarMedical HistoryDM IISurgical Historycarpal tunnelSurgical Historycystectomy-left breastSurgical Historyright neuroplasty, ulnar nerve at elbow08/2020Hospitalization Historysee above Hospitalization HistoryCOPD [employer] [facility] [employer] Other History general Narrative - Reported* Type Description Date Medical History GERD Medical HistorygastroparesisMedical HistorybipolarMedical HistoryDM IIMedical HistoryCOPDSurgical Historycarpal tunnelSurgical Historycystectomy-left breast Surgical Historyright neuroplasty, ulnar nerve at elbow08/2020Surgical History appendectomy09/2021Hospitalization Historysee aboveHospitalization HistoryCOPD [facility] Other History general Narrative - Reported* Type Description Date Medical History GERD Medical HistorygastroparesisMedical HistorybipolarMedical HistoryDM IIMedical HistoryCOPDSurgical Historycarpal tunnelSurgical Historycystectomy-left breast Surgical Historyright neuroplasty, ulnar nerve at elbow08/2020Surgical History appendectomy1/2Surgical Historyright wrist PIN/core decompression Hospitalization Historysee aboveHospitalization HistoryCOPD [facility] Other Hisizgv general Narrative - Reported* Type Description Date Medical History GERD Medical HistorygastroparesisMedical HistorybipolarMedical HistoryDM IIMedical HistoryCOPDSurgical Historycarpal tunnelSurgical Historycystectomy-left breast Surgical Historyright neuroplasty, ulnar nerve at elbow08/2020Surgical History appendectomy1/2Surgical Historyright wrist PIN/core decompressionSurgical Historycubital tunnelHospitalization Historysee aboveHospitalization HistoryCOPD [facility] [employer] Other History of Past illness Narrative* Condition Effective Dates (start - stop) O utcome No Information [facility] Work Phone: History of Present illness Narrative* Encounter Date Complaint History Of Prese nt Illness No Information [facility] Work Phone: Hospital Discharge instructions Additional Instructions Apply ice for the next 24 hours and then rotate heat Monitor your blood pressure at home and take the readings to your PCP Take the steroids that you were prescribed [place] for severe pain You cannot work or drive when taking [place] Breathing exercises as may you discussed to prevent further complications Follow with your [facility] Instructions* Date Instruction Additional Infor mation No Information [facility] Work Phone: Progress note* Clinical Note Date No Information [facility] Work Phone: Reason for referral (narrative)No reason for referral information [facility] Work Phone: Reason for referral (narrative)* Reason For Referral No Information [facility] Work Phone: Reason for visit Narrative* MRI/CT (Routine) - Closed SpecialtyDiagnoses / ProceduresReferred By ContactReferred To ContactMR IMAGING Diagnoses Intracranial meningioma (HCC) Preop testing Procedures MRI BRAIN WO/W IVCON MRI BRAIN BRAIN STEM W/O W/CONTRAST MATERIAL Erik Pineda MD [address] [place] [address] Phone: tel: fax: [facility] [place] [address] Referral IDStatusReasonStart DateExpiration DateVisits RequestedVisits [id number] Auto-Generated Referral / [facility] Narrative - Reported* System Pos/Neg Findings No Information [facility] Work Phone: Summary Purpose Family History No [...] in left shoulder November 03, 2024 8:26am 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 November 03 [...] in left shoulder November 03, 2024 8:26am 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 November 03 9:12am d50.9 December 13, 2024 3:07 pm Chief Complaint Admit Date M25.512 - Pain in left shoulder November 03, 2024 8:26am 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 November 03 [...] 7:02am M25.511 - Pain in right shoulder [facility] 2024 10:38am NEW RT BICEP PAIN NX May 30 1:21pm Reason for Visit Admit Date Osteochondrosis of lunate of right wrist March 22, 2025 3:55pm Right wrist pain March 22, 2025 3:55p m Tear of right supraspinatus tendon [facility] 2024 1:21pm Chief Complaint Admit Date 6-8 WEEKS March 22, 2025 3:55p m E78.5,R73.09,D64.9,E55.9,I10 May 152024 7:02am M25.511 - Pain in right shoulder [facility] 2024 10:38am NEW RT BICEP PAIN NX May 30 1:21pm rt side rib area pain June 05 8:09pm Chief Complaint Admit Date 6-8 WEEKS March 22, 2025 3:55p m E78.5,R73.09,D64.9,E55.9,I10 May 152024 7:02am M25.511 - Pain in right shoulder [facility] 2024 10:38am NEW RT BICEP PAIN NX May 30 1:21pm rt side rib area pain June 05 8:09pm E04.1 June 13, 2025 2:50pm Chief Complaint Admit Date 6-8 WEEKS March 22, 2025 3:55p m E78.5,R73.09,D64.9,E55.9,I10 May 152024 7:02am M25.511 - Pain in right shoulder [facility] 2024 10:38am NEW RT BICEP PAIN NX May 30 1:21pm rt side rib area pain June 05 8:09pm E04.1 June 13, 2025 2:50pm R07.89 June 19, 2025 3: 46pm Chief Complaint Admit Date E78.5,R73.09,D64.9,E55.9,I10 May 152024 7:02am M25.511 - Pain in right shoulder [facility] 2024 10:38am NEW RT BICEP PAIN NX May 30 1:21pm rt side rib area pain June 05 8:09pm E04.1 June 13, 2025 2:50pm R07.89 June 19, 2025 3: 46pm E28.39 June 26, 2025 1 :55pm Reason for Visit Admit Date Tear of right supraspinatus tendon [facility] 2024 1:21pm Chief Complaint Admit Date E78.5,R73.09,D64.9,E55.9,I10 May 152024 7:02am M25.511 - Pain in right shoulder [facility] 2024 10:38am NEW RT BICEP PAIN NX May 30 1:21pm rt side rib area pain June 05 8:09pm E04.1 June 13, 2025 2:50pm R07.89 June 19, 2025 3: 46pm E28.39 June 26, 2025 1 :55pm M54.14 June 27, 2025 5 :15pm Chief Complaint Admit Date E78.5,R73.09,D64.9,E55.9,I10 May 152024 7:02am M25.511 - [facility] 10:38[facility] NEW RT BICEP PAIN [...] Date Tear of right supraspinatus tendon [facility] 1:21pm Osteochondrosis of lunate of right wrist July 12, 2025 3:22pm Right wrist pain July 12, 2025 3 :22pm Chief Complaint Admit Date E78.5,R73.09,D64.9,E55.9,I10 May 152024 7:02am M25.511 - [facility] in [facility] 10:38am NEW RT BICEP PAIN [...] and content) DATE CREATED AUTHOR 03/10/2018 [facility] DATE CREATED AUTHOR AUTHOR'S ORGANIZ ATION 03/05/2021 [facility] DATE CREATED AUTHOR AUTHOR'S ORGANIZ ATION 10/13/2022 [facility] DATE CREATED AUTHOR AUTHOR'S ORGANIZ ATION 02/01/2024 [facility] DATE CREATED AUTHOR AUTHOR'S ORGANIZ ATION 05/31/2025 [facility] DATE CREATED AUTHOR AUTHOR'S ORGANIZ ATION 06/24/2025 [facility] DATE CREATED AUTHOR AUTHOR'S ORGANIZ ATION 07/03/2025 [facility] DATE CREATED AUTHOR AUTHOR'S ORGANIZ ATION 07/11/2025 [facility] DATE CREATED AUTHOR AUTHOR'S ORGANIZ ATION 07/20/2025 [facility] Source Comments (unrecognize d section and content) In the event this informatio n is protected by the Federal Confidentiality of Alcohol and Drug Abuse Patient Records regulations: The Federal rules restrict any use of the information to criminally investigate or prosecute any alcohol or drug abuse patient.[facility] SystemIn the event this information is protected by the Federal Confidentiality of Alcohol and Drug Abuse Patient Records regulations: The Federal rules restrict any use of the information to criminally investigate or prosecute any alcohol or drug abuse patient.[facility] SystemIn the event this information is protected by the Federal Confidentiality of Alcohol and Drug Abuse Patient Records regulations: The Federal rules restrict any use of the information to criminally investigate or prosecute any alcohol or drug abuse patient.[facility] SystemIn the event this information is protected by the Federal Confidentiality of Alcohol and Drug Abuse Patient Records regulations: The Federal rules restrict any use of the information to criminally investigate or prosecute any alcohol or drug abuse patient.[facility] SystemIn the event this information is protected by the Federal Confidentiality of Alcohol and Drug Abuse Patient Records regulations: The Federal rules restrict any use of the information to criminally investigate or prosecute any alcohol or drug abuse patient.[facility] SystemIn the event this information is protected by the Federal Confidentiality of Alcohol and Drug Abuse Patient Records regulations: The Federal rules restrict any use of the information to criminally investigate or prosecute any alcohol or drug abuse patient.[facility] SystemIn the event this information is protected by the Federal Confidentiality of Alcohol and Drug Abuse Patient Records regulations: The Federal rules restrict any use of the information to criminally investigate or prosecute any alcohol or drug abuse patient.[facility] SystemIn the event this information is protected by the Federal Confidentiality of Alcohol and Drug Abuse Patient Records regulations: The Federal rules restrict any use of the information to criminally investigate or prosecute any alcohol or drug abuse patient.[facility] SystemIn the event this information is protected by the Federal Confidentiality of Alcohol and Drug Abuse Patient Records regulations: The Federal rules restrict any use of the information to criminally investigate or prosecute any alcohol or drug abuse patient.[facility] SystemIn the event this information is protected by the Federal Confidentiality of Alcohol and Drug Abuse Patient Records regulations: The Federal rules restrict any use of the information to criminally investigate or prosecute any alcohol or drug abuse patient.[facility] SystemIn the event this information is protected by the Federal Confidentiality of Alcohol and Drug Abuse Patient Records regulations: The Federal rules restrict any use of the information to criminally investigate or prosecute any alcohol or drug abuse patient.[facility] SystemIn the event this information is protected by the Federal Confidentiality of Alcohol and Drug Abuse Patient Records regulations: The Federal rules restrict any use of the information to criminally investigate or prosecute any alcohol or drug abuse patient.[facility] SystemIn the event this information is protected by the Federal Confidentiality of Alcohol and Drug Abuse Patient Records regulations: The Federal rules restrict any use of the information to criminally investigate or prosecute any alcohol or drug abuse patient.[facility] SystemIn the event this information is protected by the Federal Confidentiality of Alcohol and Drug Abuse Patient Records regulations: The Federal rules restrict any use of the information to criminally investigate or prosecute any alcohol or drug abuse patient.[facility] SystemIn the event this information is protected by the Federal Confidentiality of Alcohol and Drug Abuse Patient Records regulations: The Federal rules restrict any use of the information to criminally investigate or prosecute any alcohol or drug abuse patient.[facility] SystemIn the event this information is protected by the Federal Confidentiality of Alcohol and Drug Abuse Patient Records regulations: The Federal rules restrict any use of the information to criminally investigate or prosecute any alcohol or drug abuse patient.[facility] SystemIn the event this information is protected by the Federal Confidentiality of Alcohol and Drug Abuse Patient Records regulations: The Federal rules restrict any use of the information to criminally investigate or prosecute any alcohol or drug abuse patient.[facility] SystemIn the event this information is protected by the Federal Confidentiality of Alcohol and Drug Abuse Patient Records regulations: The Federal rules restrict any use of the information to criminally investigate or prosecute any alcohol or drug abuse patient.[facility] SystemIn the event this information is protected by the Federal Confidentiality of Alcohol and Drug Abuse Patient Records regulations: The Federal rules restrict any use of the information to criminally investigate or prosecute any alcohol or drug abuse patient.[facility] SystemIn the event this information is protected by the Federal Confidentiality of Alcohol and Drug Abuse Patient Records regulations: The Federal rules restrict any use of the information to criminally investigate or prosecute any alcohol or drug abuse patient.[facility] SystemIn the event this information is protected by the Federal Confidentiality of Alcohol and Drug Abuse Patient Records regulations: The Federal rules restrict any use of the information to criminally investigate or prosecute any alcohol or drug abuse patient.[facility] SystemIn the event this information is protected by the Federal Confidentiality of Alcohol and Drug Abuse Patient Records regulations: The Federal rules restrict any use of the information to criminally investigate or prosecute any alcohol or drug abuse patient.[facility] SystemIn the event this information is protected by the Federal Confidentiality of Alcohol and Drug Abuse Patient Records regulations: The Federal rules restrict any use of the information to criminally investigate or prosecute any alcohol or drug abuse patient.[facility] SystemIn the event this information is protected by the Federal Confidentiality of Alcohol and Drug Abuse Patient Records regulations: The Federal rules restrict any use of the information to criminally investigate or prosecute any alcohol or drug abuse patient.[facility] SystemIn the event this information is protected by the Federal Confidentiality of Alcohol and Drug Abuse Patient Records regulations: The Federal rules restrict any use of the information to criminally investigate or prosecute any alcohol or drug abuse patient.[facility] SystemIn the event this information is protected by the Federal Confidentiality of Alcohol and Drug Abuse Patient Records regulations: The Federal rules restrict any use of the information to criminally investigate or prosecute any alcohol or drug abuse patient.[facility] SystemIn the event this information is protected by the Federal Confidentiality of Alcohol and Drug Abuse Patient Records regulations: The Federal rules restrict any use of the information to criminally investigate or prosecute any alcohol or drug abuse patient.[facility] SystemIn the event this information is protected by the Federal Confidentiality of Alcohol and Drug Abuse Patient Records regulations: The Federal rules restrict any use of the information to criminally investigate or prosecute any alcohol or drug abuse patient.[facility] SystemIn the event this information is protected by the Federal Confidentiality of Alcohol and Drug Abuse Patient Records regulations: The Federal rules restrict any use of the information to criminally investigate or prosecute any alcohol or drug abuse patient.[facility] SystemIn the event this information is protected by the Federal Confidentiality of Alcohol and Drug Abuse Patient Records regulations: The Federal rules restrict any use of the information to criminally investigate or prosecute any alcohol or drug abuse patient.[facility] SystemIn the event this information is protected by the Federal Confidentiality of Alcohol and Drug Abuse Patient Records regulations: The Federal rules restrict any use of the information to criminally investigate or prosecute any alcohol or drug abuse patient.[facility] SystemIn the event this information is protected by the Federal Confidentiality of Alcohol and Drug Abuse Patient Records regulations: The Federal rules restrict any use of the information to criminally investigate or prosecute any alcohol or drug abuse patient.[facility] SystemIn the event this information is protected by the Federal Confidentiality of Alcohol and Drug Abuse Patient Records regulations: The Federal rules restrict any use of the information to criminally investigate or prosecute any alcohol or drug abuse patient.[facility] SystemIn the event this information is protected by the Federal Confidentiality of Alcohol and Drug Abuse Patient Records regulations: The Federal rules restrict any use of the information to criminally investigate or prosecute any alcohol or drug abuse patient.[facility] SystemIn the event this information is protected by the Federal Confidentiality of Alcohol and Drug Abuse Patient Records regulations: The Federal rules restrict any use of the information to criminally investigate or prosecute any alcohol or drug abuse patient.[facility] SystemIn the event this information is protected by the Federal Confidentiality of Alcohol and Drug Abuse Patient Records regulations: The Federal rules restrict any use of the information to criminally investigate or prosecute any alcohol or drug abuse patient.[facility] SystemIn the event this information is protected by the Federal Confidentiality of Alcohol and Drug Abuse Patient Records regulations: The Federal rules restrict any use of the information to criminally investigate or prosecute any alcohol or drug abuse patient.[facility] SystemIn the event this information is protected by the Federal Confidentiality of Alcohol and Drug Abuse Patient Records regulations: The Federal rules restrict any use of the information to criminally investigate or prosecute any alcohol or drug abuse patient.[facility] SystemIn the event this information is protected by the Federal Confidentiality of Alcohol and Drug Abuse Patient Records regulations: The Federal rules restrict any use of the information to criminally investigate or prosecute any alcohol or drug abuse patient.[facility] SystemIn the event this information is protected by the Federal Confidentiality of Alcohol and Drug Abuse Patient Records regulations: The Federal rules restrict any use of the information to criminally investigate or prosecute any alcohol or drug abuse patient.[facility] SystemIn the event this information is protected by the Federal Confidentiality of Alcohol and Drug Abuse Patient Records regulations: The Federal rules restrict any use of the information to criminally investigate or prosecute any alcohol or drug abuse patient.[facility] SystemIn the event this information is protected by the Federal Confidentiality of Alcohol and Drug Abuse Patient Records regulations: The Federal rules restrict any use of the information to criminally investigate or prosecute any alcohol or drug abuse patient.[facility] SystemIn the event this information is protected by the Federal Confidentiality of Alcohol and Drug Abuse Patient Records regulations: The Federal rules restrict any use of the information to criminally investigate or prosecute any alcohol or drug abuse patient.[facility] SystemIn the event this information is protected by the Federal Confidentiality of Alcohol and Drug Abuse Patient Records regulations: The Federal rules restrict any use of the information to criminally investigate or prosecute any alcohol or drug abuse patient.[facility] SystemIn the event this information is protected by the Federal Confidentiality of Alcohol and Drug Abuse Patient Records regulations: The Federal rules restrict any use of the information to criminally investigate or prosecute any alcohol or drug abuse patient.[facility] SystemIn the event this information is protected by the Federal Confidentiality of Alcohol and Drug Abuse Patient Records regulations: The Federal rules restrict any use of the information to criminally investigate or prosecute any alcohol or drug abuse patient.[facility] SystemIn the event this information is protected by the Federal Confidentiality of Alcohol and Drug Abuse Patient Records regulations: The Federal rules restrict any use of the information to criminally investigate or prosecute any alcohol or drug abuse patient.[facility] SystemIn the event this information is protected by the Federal Confidentiality of Alcohol and Drug Abuse Patient Records regulations: The Federal rules restrict any use of the information to criminally investigate or prosecute any alcohol or drug abuse patient.[facility] SystemIn the event this information is protected by the Federal Confidentiality of Alcohol and Drug Abuse Patient Records regulations: The Federal rules restrict any use of the information to criminally investigate or prosecute any alcohol or drug abuse patient.[facility] SystemIn the event this information is protected by the Federal Confidentiality of Alcohol and Drug Abuse Patient Records regulations: The Federal rules restrict any use of the information to criminally investigate or prosecute any alcohol or drug abuse patient.[facility] SystemIn the event this information is protected by the Federal Confidentiality of Alcohol and Drug Abuse Patient Records regulations: The Federal rules restrict any use of the information to criminally investigate or prosecute any alcohol or drug abuse patient.[facility] SystemIn the event this information is protected by the Federal Confidentiality of Alcohol and Drug Abuse Patient Records regulations: The Federal rules restrict any use of the information to criminally investigate or prosecute any alcohol or drug abuse patient.[facility] SystemIn the event this information is protected by the Federal Confidentiality of Alcohol and Drug Abuse Patient Records regulations: The Federal rules restrict any use of the information to criminally investigate or prosecute any alcohol or drug abuse patient.[facility] SystemIn the event this information is protected by the Federal Confidentiality of Alcohol and Drug Abuse Patient Records regulations: The Federal rules restrict any use of the information to criminally investigate or prosecute any alcohol or drug abuse patient.[facility] SystemIn the event this information is protected by the Federal Confidentiality of Alcohol and Drug Abuse Patient Records regulations: The Federal rules restrict any use of the information to criminally investigate or prosecute any alcohol or drug abuse patient.[facility] SystemIn the event this information is protected by the Federal Confidentiality of Alcohol and Drug Abuse Patient Records regulations: The Federal rules restrict any use of the information to criminally investigate or prosecute any alcohol or drug abuse patient.[facility] SystemIn the event this information is protected by the Federal Confidentiality of Alcohol and Drug Abuse Patient Records regulations: The Federal rules restrict any use of the information to criminally investigate or prosecute any alcohol or drug abuse patient.[facility] SystemIn the event this information is protected by the Federal Confidentiality of Alcohol and Drug Abuse Patient Records regulations: The Federal rules restrict any use of the information to criminally investigate or prosecute any alcohol or drug abuse patient.[facility] SystemIn the event this information is protected by the Federal Confidentiality of Alcohol and Drug Abuse Patient Records regulations: The Federal rules restrict any use of the information to criminally investigate or prosecute any alcohol or drug abuse patient.[facility] SystemIn the event this information is protected by the Federal Confidentiality of Alcohol and Drug Abuse Patient Records regulations: The Federal rules restrict any use of the information to criminally investigate or prosecute any alcohol or drug abuse patient.[facility] SystemIn the event this information is protected by the Federal Confidentiality of Alcohol and Drug Abuse Patient Records regulations: The Federal rules restrict any use of the information to criminally investigate or prosecute any alcohol or drug abuse patient.[facility] SystemIn the event this information is protected by the Federal Confidentiality of Alcohol and Drug Abuse Patient Records regulations: The Federal rules restrict any use of the information to criminally investigate or prosecute any alcohol or drug abuse patient.[facility] SystemIn the event this information is protected by the Federal Confidentiality of Alcohol and Drug Abuse Patient Records regulations: The Federal rules restrict any use of the information to criminally investigate or prosecute any alcohol or drug abuse patient.[facility] SystemIn the event this information is protected by the Federal Confidentiality of Alcohol and Drug Abuse Patient Records regulations: The Federal rules restrict any use of the information to criminally investigate or prosecute any alcohol or drug abuse patient.[facility] SystemIn the event this information is protected by the Federal Confidentiality of Alcohol and Drug Abuse Patient Records regulations: The Federal rules restrict any use of the information to criminally investigate or prosecute any alcohol or drug abuse patient.[facility] SystemIn the event this information is protected by the Federal Confidentiality of Alcohol and Drug Abuse Patient Records regulations: The Federal rules restrict any use of the information to criminally investigate or prosecute any alcohol or drug abuse patient.[facility] SystemIn the event this information is protected by the Federal Confidentiality of Alcohol and Drug Abuse Patient Records regulations: The Federal rules restrict any use of the information to criminally investigate or prosecute any alcohol or drug abuse patient.[facility] Reason for Visit (unrecogniz ed section and content) ReasonCommentsNew PatientReasonCommentsFollow UpReasonCommentsOrdersPlaquenil ReasonCommentsRefill RequestReasonOnset DateCommentsRefill Nrhesex1003/07/2023 ReasonOnset DateCommentsRefill Nqvgfsw1404/13/2023ReasonCommentsTRIAGEReason CommentsHeadacheSpecialtyDiagnoses / ProceduresReferred By ContactReferred To Contact Diagnoses Brain mass Procedures CONSULT TO HEADACHE CLINIC OFFICE/OUTPATIENT [facility] 60-74 MINUTES Laron Lou DO, PhD [address] [facility] [address] [place] [address] Referral IDStatusReasonStart DateExpiration DateVisits RequestedVisits [id number] PCP Requested Referral /[id number] UpdateDiscuss Surgery Marcheason CommentsConsultReasonCommentsCare Coordinationfollow upReasonOnset DateComments Refill Wjphadu11/27/2024ReasonOnset DateCommentsRefill Jqjjrak44/29/2024Reason CommentsLab Orders/FAXReasonCommentsSchedule SurgeryReasonCommentsSchedule SurgerySurgery PlanningReasonOnset DateCommentsRefill Rixsyvy4801/27/2024Specialty Diagnoses / ProceduresReferred By ContactReferred To ContactCT IMAGING Diagnoses 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) Procedures CT BRAIN STEREOLOCAL WO IVCON CT GUIDANCE STEREOTACTIC LOCALIZATION Erik Pineda MD [address] [place] [address] Ct Imaging [place] [address] Referral IDStatusReSt DateExpiration DateVisits RequestedVisits [id number] Auto-Generated Referral [id number] / ProceduresReferred By ContactReferred To ContactMR IMAGING Diagnoses Benign neoplasm of meninges (HCC) Procedures MRI SKULL BASE WO/W IVCON MRI BRAIN BRAIN STEM W/O W/CONTRAST MATERIAL Erik Pineda MD [address] [place] [address] Mr Imaging [place] [address] Referral IDStatusReasonSt DateExpiration DateVisits RequestedVisits [id number] Auto-Generated Referral [id number]rOdsevoXttmptlhDvfrrkbcrlh PatientPre op consentReasonCommentsDaily HeadacheReasonCommentsepidural steroid injection ReasonCommentsInsurance AuthorizationRobaxin [place] - Medicare / [employer]. ReasonOnset DateCommentsRefill Rgjmzhf76/11/2024ReasonCommentsJoint PainReason CommentsResultsReasonOnset DateCommentsRefill Niqqhpi45/15/2024ReasonComments ResultsLab results from [facility]asonCommentsCare Coordinator - OtherLab order problemReasonOnset DateCommentsRefill Request 10/10/2024ReasonCommentsCare CoordinationMyChart Follow up - Surgery Planning ReasonCommentsMed Change RequestReasonCommentsEstablished PatientReasonComments PreOp CallReasonCommentsSurgical FollowupReasonCommentsPatient UpdateReason CommentsAnesthesia ConsultSpecialtyDiagnoses / ProceduresReferred By Contact Referred To Contact Diagnoses Intracranial meningioma (HCC) Preop testing Procedures REFER TO [facility] - PREOPERATIVE OPTIMIZATION OFFICE/OUTPATIENT [facility] 60 MINUTES Erik Pineda MD [address] [place] [address] Phone: tel: fax: Referral IDStatusReasonStart DateExpiration DateVisits RequestedVisits [id number] PCP Requested Referral [id number] PatientReasonCommentsPost OpReason Onset DateCommentsRefill Tklsztg7503/15/2025ReasonOnset DateCommentsRefill Request 03/20/2025ReasonCommentsHeadacheReasonCommentsReferralCOPD and chronic fatigue and inflammation elevation in blood work thinks she has immune issues Care Teams (unrecognized sec tion and content) Team Status: Active Member Role Status David Gonzalez MD Primary Care Provider Active Team Status: Inactive Member Role Status David Gonzalez MD Primary Care Provider Active Marcos Gibsonunc [facility] ProviderActive Team Status: Inactive Member Role Status David Gonzalez MD Primary Care Provider, Attending Pr luis Active Team MemberRelationshipSpecialtyStart DateEnd Jesus Gonzalez MD [address] [place] [address] [facility]01/14/21 Team Status: Inactive Member Role Status Dates Jesus Gonzalez MD Primary Care Provider Active Elyssa Gomes MDAttrebecca ProviderActive Team Status: Inactive Member Role Status Dates Jesus Gonzalez MD Primary Care Provider Active Gunner Cummings DPM MSAttending ProviderActiveTeam MemberRelationship SpecialtyStart DateEnd Date Jesus Gonzalez MD [address] [place] [address] ReferringFamily Medicine01/14/21Team MemberRelationshipSpecialtyStart DateEnd Date Jesus Gonzalez MD [address] [place] [address] ReferringFamily Medicine01/14/21Team MemberRelationshipSpecialtyStart DateEnd Date Jesus Gonzalez [...] DateEnd Date Jesus Gonzalez MD [address] [facility] [place] [address] PCP - GeneralFamily Medicine05/12/23 Jesus Gonzalez MD ReferringFamily Medicine01/14/21 Jesus Gonzalez MD [address] [place] [address] ReferringFamily Medicine05/12/23Team MemberRelationshipSpecialtyStart DateEnd Date Jesus Gonzalez MD [address] [place] [address] PCP - GeneralFamily Medicine05/12/23 Jesus Gonzalez MD ReferringFamily Medicine01/14/21 Jesus Gonzalez MD [address] [facility] [place] [address] ReferringFamily Medicine05/12/23Team MemberRelationshipSpecialtyStart DateEnd Date Jesus Gonzalez MD [address] [facility] [place] [address] PCP - GeneralFamily Medicine05/12/23 Jesus Gonzalez MD ReferringFamily Medicine01/14/21 Jesus Gonzalez MD [address] [facility] [place] [address] ReferringFamily Medicine05/12/23Team MemberRelationshipSpecialtyStart DateEnd Date Jesus Gonzalez MD [address] [facility] [place] [address] PCP - Generalmily Medicine05/12/23 Jesus Gonzalez MD ReferringFamily Medicine01/14/21 Jesus Gonzalez MD [address] [facility] [place] [address] [facility]05/12/23Te MemberRelationshipSpecialtyStart DateEnd Jesus Gonzalez MD [address] [facility] [place] [address] PCP - Generalmi Medicine05/12/23 Jesus Gonzalez MD ReferringFamily Medicine01/14/21 Jesus Gonzalez MD [address] [facility] [place] [address] ReferringFamily Medicine05/12/23Team MemberRelationshipSpecialtyStart DateEnd Date Jesus Gonzalez MD [address] [facility] [place] [address] PCP - Generalmi Medicine05/12/23 Jesus Gonzalez MD ReferringFamily Medicine01/14/21 Jesus Gonzalez MD [address] [facility] [place] [address] ReferringFamily Medicine05/12/23Team MemberRelationshipSpecialtyStart DateEnd Jesus Gonzalez MD [address] [facility] [place] [address] PCP - GeneralFamily Medicine05/12/23 Jesus Gonzalez MD ReferringFamily Medicine01/14/21 Jesus Gonzalez MD [address] [facility] [place] [address] ReferringFamily Medicine05/12/23Team MemberRelationshipSpecialtyStart DateEnd [facility] Jesus Gonzalez MD [address] [facility] [place] [address] PCP - GeneralFamily Medicine05/12/23 Jesus Gonzalez MD ReferringFamily Medicine01/14/21 Jesus Gonzalez MD [address] [facility] [place] [address] ReferringFamily Medicine05/12/23Team MemberRelationshipSpecialtyStart End Date Jesus Gonzalez MD [address] [facility] [place] [address] PCP - GeneralFamily Medicine05/12/23 Jesus Gonzalez MD ReferringFamily Medicine01/14/21 Jesus Gonzalez MD [address] [place] [address] [facility]05/12/23 Team Status: Inactive Member Role [...] MemberRelationshipSpecialtyStart DateEnd Date Jesus Gonzalez MD [address] [place] [address] PCP - Generalmily Medicine05/12/23 Jesus Gonzalez MD [facility]erring[facility]01/14/21 Jesus Gonzalez MD [address] [place] [address] [facility]erring[facility]05/12/23Team MemberRelationshipSpecialtyStart DateEnd Date Jesus Gonzalez MD [address] [place] [address] PCP - GeneralFamily Medicine05/12/23 Jesus Gonzalez MD [facility]01/14/21 Jesus Gonzalez MD [address] [facility] [place] [address] [facility]05/12/23Team MemberRelationshipSpecialtyStart DateEnd Date Jesus Gonzalez MD [address] [place] [address] PCP - [facility]05/12/23 Jesus Gonzalez MD [facility]01/14/21 Jesus Gonzalez MD [address] [facility] [place] [address] [facility]05/12/23 Team Status: Inactive Member Role Status [...] DateEnd Date Jesus Gonzalez MD [address] [facility] [place] [address] PCP - GeneralFamily Medicine05/12/23 Jesus Gonzalez MD ReferringFamily Medicine01/14/21 Jesus Gonzalez MD [address] [facility] [place] [address] [facility]05/12/23Team MemberRelationshipSpecialtyStart DateEnd Date Jesus Gonzalez MD [address] [facility] [place] [address] [facility] - [facility]05/12/23 Jesus Gonzalez MD [facility]erring[facility]01/14/21 Jesus Gonzalez MD [address] [facility] [place] [address] [facility]erring[facility]05/12/23Team MemberRelationshipSpecialtyStart End Jesus Gonzalez MD [address] [facility] [place] [address] [facility] - [facility]05/12/23 Jesus Gonzalez MD [facility]01/14/21 Jesus Gonzalez MD [address] [facility] [place] [address] [facility]05/12/23 Team Status: Inactive Member Role Status Dates Jesus Gonzalez MD Primary Care Provide r, Attending Provider Active Start: May 12, 2024 End: May 12, 2024Team MemberRelationshipSpecialtyStart DateEnd Date Jesus Gonzalez MD [address] [facility] [place] [address] PCP - GeneralFamily Medicine05/12/23 Jesus Gonzalez MD ReferringFamily Medicine01/14/21 Jesus Gonzalez MD [address] [facility] [place] [address] Referringmi Medicine05/12/23Team MemberRelationshipSpecialtyStart DateEnd Jesus Gonzalez MD [address] [facility] [place] [address] PCP - GeneralFamily Medicine05/12/23 Jesus Gonzalez MD ReferringFami Medicine01/14/21 Jesus Gonzalez MD [address] [facility] [place] [address] [facility]erringFaM[facility]05/12/23 Team Status: Inactive Member Role [...] DateEnd Date Jesus Gonzalez MD [address] [place] [facility] [address] PCP - GeneralFamily Medicine03/12/23Team MemberRelationshipSpecialtyStart DateEnd Date Jesus Gonzalez MD [address] [place] [address] PCP - [facility]05/12/23 Jesus Gonzalez MD [facility]erring[facility]01/14/21 Jesus Gonzalez MD [address] [place] [address] [facility]05/12/23 Team Status: Inactive Member Role Status [...] DateEnd Date Jesus Gonzalez MD [address] [place] [address] PCP - [facility]05/12/23 Jesus Gonzalez MD [facility]01/14/21 Jesus Gonzalez MD [address] [place] [address] [facility]erring[facility]05/12/23Team MemberRelationshipSpecialtyStart DateEnd Jesus Gonzalez MD [address] [place] [address] PCP - [facility]05/12/23 Jesus Gonzalez MD [facility]erring[facility]01/14/21 Jesus Gonzalez MD [address] [place] [address] [facility]05/12/23 Team Status: Active Member Role Status [...] MemberRelationshipSpecialtyStart DateEnd Jesus Gonzalez MD [address] [facility] [place] [address] PCP - [facility]05/12/23 Jesus Gonzalez MD [facility]erring[facility]01/14/21 Jesus Gonzalez MD [address] [place] [address] [facility]erring[facility]05/12/23 Team Status: Inactive Member Role [...] DateEnd Date Jesus Gonzalez MD [address] [place] [address] [facility]05/12/23 Jesus Gonzalez MD [facility]erringL[facility] Medicine01/14/21 Jesus Gonzalez MD [address] [place] [address] [facility]erring[facility]05/12/23 Team Status: Inactive Member Role [...] DateEnd Date Jesus Gonzalez MD [address] [place] [address] PCP - GeneralFamily Medicine05/12/23 Jesus Gonzalez MD ReferringFamily Medicine01/14/21 Jesus Gonzalez MD [address] [facility] [place] [address] ReferringFamily Medicine05/12/23Team MemberRelationshipSpecialtyStart DateEnd Date Jesus Gonzalez MD [address] [facility] [place] [address] [facility]CP - [facility]El[facility]05/12/23 Jesus Gonzalez MD ReferringFamily Medicine01/14/21 Jesus Gonzalez MD [address] [facility] [place] [address] [facility]erringF[facility]Way[facility]05/12/23Team MemberRelationshipSpecialtyStart End Jesus Gonzalez MD [address] [facility] [place] [address] PCP - Generalmily Medicine05/12/23 Jesus Gonzalez MD ReferringFami Medicine01/14/21 Jesus Gonzalez MD [address] [facility] [place] [address] ReferringFami Medicine05/12/23Team MemberRelationshipSpecialtyStart DateEnd Date Jesus Gonzalez MD [address] [facility] [place] [address] PCP - GeneralFamily Medicine05/12/23 Jesus Gonzalez MD ReferringFamily Medicine01/14/21 Jesus Gonzalez MD [address] [facility] [place] [address] ReferringFamily Medicine05/12/23Team MemberRelationshipSpecialtyStart DateEnd Date Jesus Gonzalez MD [address] [facility] [place] [address] PCP - GeneralFami Medicine05/12/23 Jesus Gonzalez MD ReferringFamily Medicine01/14/21 Jesus Gonzalez MD [address] [facility] [place] [address] ReferringF[facility] Medicine05/12/23Team MemberRelationshipSpecialtyStart DateEnd Date Jesus Gonzalez MD [address] [facility] [place] [address] PCP - Generalmily Medicine05/12/23 Jesus Gonzalez MD ReferringFamily Medicine01/14/21 Jesus Gonzalez MD [address] [facility] [place] [address] ReferringFamily Medicine05/12/23Team MemberRelationshipSpecialtyStart DateEnd Date Jesus Gonzalez MD [address] [facility] [place] [address] PCP - GeneralFamily Medicine05/12/23 Jesus Gonzalez MD ReferringFamily Medicine01/14/21 Jesus Gonzalez MD [address] [facility] [place] [address] ReferringFamily Medicine05/12/23Te MemberRelationshipSpecialtyStart End Jesus Gonzalez MD [address] [facility] [place] [address] PCP - Generalmily Medicine05/12/23 Jesus Gonzalez MD ReferringFamily Medicine01/14/21 Jesus Gonzalez MD [address] [facility] [place] [address] ReferringFamily Medicine05/12/23Te MemberRelationshipSpecialtyStart End Jesus Gonzalez MD [address] [facility] [place] [address] PCP - GeneralFamily Medicine05/12/23 Jesus Gonzalez MD ReferringFamily Medicine01/14/21 Jesus Gonzalez MD [address] [facility] [place] [address] ReferringFamily Medicine05/12/23Team MemberRelationshipSpecialtyStart DateEnd Date Jesus Gonzalez MD [address] [facility] [place] [address] PCP - Generalmily Medicine05/12/23 Jesus Gonzalez MD ReferringFamily Medicine01/14/21 Jesus Gonzalez MD [address] [facility] [place] [address] [facility]23Team MemberRelationshipSpecialtyStart DateEnd Date Jesus Gonzalez MD [address] [facility] [place] [address] PCP - Generalmily Medicine05/12/23 Jesus Gonzalez MD Referringmi Medicine01/14/21 Jesus Gonzalez MD [address] [facility] [place] [address] [facility]05/12/23Team MemberRelationshipSpecialtyStart DateEnd Date Jesus Gonzalez MD [address] [facility] [place] [address] PCP - Generalmily Medicine05/12/23 Jesus Gonzalez MD ReferringFami Medicine01/14/21 Jesus Gonzalez MD [address] [facility] [place] [address] [facility]05/12/23Team MemberRelationshipSpecialtyStart DateEnd Date Jesus Gonzalez MD [address] [place] [address] PCP - [facility]05/12/23 Jesus Gonzalez MD [facility]01/14/21 Jesus Gonzalez MD [address] [place] [address] [facility]05/12/23 Team Status: Inactive Member Role Status [...] DateEnd Date Jesus Gonzalez MD [address] [place] [address] PCP - [facility]05/12/23 Jesus Gonzalez MD [facility]01/14/21 Jesus Gonzalez MD [address] [place] [address] [facility]05/12/23 Name Effective Dates (start - stop) Status Members No Information Team MemberRelationshipSpecialtyStart DateEnd Jesus Gonzalez MD [address] [facility] [place] [address] PCP - [facility]05/12/23 Jesus Goznalez MD ReferringFamily Medicine01/14/21 Jesus Gonzalez MD [address] [facility] [place] [address] [facility]05/12/23Team MemberRelationshipSpecialtyStart End Jesus Gonzalez MD [address] [facility] [place] [address] PCP - Generalmi Medicine05/12/23 Jesus Gonzalez MD ReferringFami Medicine01/14/21 Jesus Gonzalez MD [address] [facility] [place] [address] ReferringFami Medicine05/12/23Team MemberRelationshipSpecialtyStart DateEnd Jesus Gonzalez MD [address] [facility] [place] [address] PCP - Generalmily Medicine05/12/23 Jesus Gonzalez MD ReferringFami Medicine01/14/21 Jesus Gonzalez MD [address] [facility] [place] [address] [facility]05/12/23 Team Status: Inactive Member Role Status Dates Jesus Gonzalez MD Primary Care Provider Active Start: May 26, 2025 End: May 26, 2025DoSanchez Reyes ProviderActiveStart: May 26, 2025 End: May 26, 2025Team MemberRelationshipSpecialtyStart DateEnd Date Jesus Gonzalez MD [facility] - [facility]03/12/23 Team Status: Active Member Role [...] 2025Team MemberRelationshipSpecialtyStart DateEnd Date Jesus Gonzalez MD [facility] - [facility]03/12/23Team MemberRelationshipSpecialtyStart DateEnd Date Jesus Gonzalez MD [facility]03/12/23 Team Status: Inactive Member Role Status [...] MemberRelationshipSpecialtyStart DateEnd Jesus Carmona MD PCP - [facility]03/12/23Team MemberRelationshipSpecialtyStart DateEnd Jesus Carmona MD PCP - [facility]03/12/23Team MemberRelationshipSpecialtyStart DateEnd Jesus Carmona MD PCP - [facility]03/12/23 Team Status: Active Member Role/Relationship [...] CLINICAL RECORDS. [facility] [employer] provides no warranty or guarantee of the accuracy or completeness of information in this document.
[2025-09-11 18:26] LABS: Ferritin 15.0 ng/mL (8.0-252.0)
== END 2025-09-11 16:51 | disposition home or self-care (01) ==
LOC: LAB 16:51
PROVIDERS: PCP Family Medicine; Visit Provider Family Medicine
DX: D64.9 Anemia, unspecified (principal)
CPT/HCPCS: 36415; 82728